=== PATIENT | female | born 1935 | race Caucasian/White ===

== ENCOUNTER 2023-07-07 09:41 | Outpatient (REF) | payer MEDICARE, MEDICAID, SELFPAY ==
[2023-07-07 12:50] LABS: Basophils Percent Auto 0.2 % (0.2-2.0); Eosinophils Absolute Auto 0.2 10^3/uL (0.0-0.7); Eosinophils Percent Auto 3.5 % (0.9-7.0); Hematocrit 37.8 % (36.0-48.0); Hemoglobin 11.5 g/dL (12.0-16.0); Immature Granulocytes Abs Auto 0.01 10^3/uL (0.00-0.03); Immature Granulocytes Pct Auto 0.2 % (0.0-0.5); Lymphocytes Absolute Auto 1.8 10^3/uL (1.2-3.8); Mean Corpuscular HGB Conc 30.4 g/dL (29.9-35.2); Mean Corpuscular Hemoglobin 30.3 pg (26.7-34.0); Mean Corpuscular Volume 99.7 fL (81.0-99.0); Monocytes Absolute Auto 0.7 10^3/uL (0.3-0.8); Monocytes Percent Auto 11.1 % (1.7-12.0); Neutrophils Absolute Auto 3.3 10^3/uL (1.4-6.5); Platelet Count 229 10^3/uL (150-450); Red Blood Count 3.79 10^6/uL (4.20-5.40)
[2023-07-07 13:11] LABS: Albumin Level 3.4 g/dL (3.4-5.0); Anion Gap 13.3; BUN Creatinine Ratio 18.1; Calcium 9.2 mg/dL (8.5-10.1); Carbon Dioxide 31.2 mmol/L (21.0-32.0); Chloride 103 mmol/L (98-107); Estimated GFR (African America 22 (>=60); Estimated GFR (Non-African Ame 18 (>=60); Glucose 110 mg/dL (74-106); Magnesium 2.3 mg/dL (1.8-2.4); Phosphorus 3.5 mg/dL (2.6-4.7); Potassium 3.5 mmol/L (3.5-5.1); Sodium 144 mmol/L (136-145); Uric Acid 7.1 mg/dL (2.6-6.0)
[2023-07-08 13:07] LABS: PTH, Intact 62 pg/mL (15-65)
== END 2023-07-07 09:42 | disposition home or self-care (01) ==
LOC: LAB 09:41
DX: I12.9 Hypertensive chronic kidney disease with stage 1 through stage 4 chronic kidney disease, or unspecified chronic kidney disease (principal); N18.4 Chronic kidney disease, stage 4 (severe); N25.0 Renal osteodystrophy; E87.8 Other disorders of electrolyte and fluid balance, not elsewhere classified; E87.70 Fluid overload, unspecified
CPT/HCPCS: 36415; 80069; 82570; 83735; 83970; 84156; 84550; 85025

== ENCOUNTER 2023-07-15 07:48 | Outpatient (REF) | payer MEDICARE, MEDICAID, SELFPAY ==
[2023-07-16 08:05] LABS: Bilirubin Urine NEGATIVE (NEGATIVE); Blood Urine TRACE-I (NEGATIVE); Clarity Urine CLEAR (CLEAR); Color Urine LT. YELLOW (YELLOW); Glucose Urine UA NEGATIVE (NEGATIVE); Ketones Urine NEGATIVE (NEGATIVE); Leukocyte Esterase Urine LARGE (NEGATIVE); Nitrite Urine NEGATIVE (NEGATIVE); Protein Urine NEGATIVE (NEG/TRACE); Urine Microscopic Indicated YES; Urobilinogen Urine 0.2 EU/dL (0.2-1.0)
[2023-07-16 08:13] LABS: RBC Urine 0-2 #/HPF (0-2)
[2023-07-16 08:14] LABS: Bacteria Urine TRACE #/HPF (NONE SEEN); Cast Seen? NONE SEEN #/LPF (NONE SEEN); Creatinine Urine Random 17.81 mg/dL (20.00-300.00); Crystals Seen? None Seen #/HPF (None Seen); Mucus Urine NONE SEEN (NONE SEEN); Protein Creatinine Ratio Urine 0.92; Squamous Epithelial Cell Urine RARE #/LPF (NONE/RARE); Total Protein Urine Random 16.4 mg/dL (<=11.9); Urine Culture Indicated YES
== END 2023-07-15 07:49 | disposition home or self-care (01) ==
LOC: LAB 07:48
DX: N18.4 Chronic kidney disease, stage 4 (severe) (principal); R82.89 Other abnormal findings on cytological and histological examination of urine
CPT/HCPCS: 81001; 82570; 84156; 87086

== ENCOUNTER 2023-08-12 15:02 | Outpatient (REF) | payer MEDICARE, MEDICAID, SELFPAY ==
[2023-08-11 08:50] LABS: Basophils Percent Auto 0.3 % (0.2-2.0); Eosinophils Absolute Auto 0.2 10^3/uL (0.0-0.7); Eosinophils Percent Auto 2.3 % (0.9-7.0); Hematocrit 39.8 % (36.0-48.0); Hemoglobin 12.6 g/dL (12.0-16.0); Immature Granulocytes Abs Auto 0.01 10^3/uL (0.00-0.03); Immature Granulocytes Pct Auto 0.1 % (0.0-0.5); Lymphocytes Absolute Auto 2.4 10^3/uL (1.2-3.8); Lymphocytes Percent Auto 30.6 % (20.5-60.0); Mean Corpuscular HGB Conc 31.7 g/dL (29.9-35.2); Mean Corpuscular Hemoglobin 31.3 pg (26.7-34.0); Mean Corpuscular Volume 98.8 fL (81.0-99.0); Mean Platelet Volume 10.2 fL (9.5-13.5); Monocytes Absolute Auto 0.8 10^3/uL (0.3-0.8); Monocytes Percent Auto 9.7 % (1.7-12.0); Neutrophils Absolute Auto 4.4 10^3/uL (1.4-6.5); Platelet Count 212 10^3/uL (150-450); Red Blood Count 4.03 10^6/uL (4.20-5.40); Red Cell Distribution Width 13.2 % (11.0-15.0); White Blood Count 7.7 10^3/uL (4.0-11.0)
[2023-08-11 09:26] LABS: Albumin Level 3.6 g/dL (3.4-5.0); Anion Gap 12.7; BUN Creatinine Ratio 17.5; Calcium 8.8 mg/dL (8.5-10.1); Carbon Dioxide 31.8 mmol/L (21.0-32.0); Chloride 102 mmol/L (98-107); Estimated GFR (African America 24 (>=60); Estimated GFR (Non-African Ame 20 (>=60); Glucose 121 mg/dL (74-106); Phosphorus 4.5 mg/dL (2.6-4.7); Potassium 3.5 mmol/L (3.5-5.1); Sodium 143 mmol/L (136-145); Uric Acid 7.7 mg/dL (2.6-6.0)
[2023-08-11 09:52] LABS: Magnesium 2.3 mg/dL (1.8-2.4)
[2023-08-12 12:13] LABS: PTH, Intact 51 pg/mL (15-65)
[2023-08-13 11:21] LABS: Bilirubin Urine NEGATIVE (NEGATIVE); Blood Urine TRACE-I (NEGATIVE); Clarity Urine CLEAR (CLEAR); Color Urine LT. YELLOW (YELLOW); Glucose Urine UA NEGATIVE (NEGATIVE); Ketones Urine NEGATIVE (NEGATIVE); Leukocyte Esterase Urine LARGE (NEGATIVE); Nitrite Urine NEGATIVE (NEGATIVE); Protein Urine NEGATIVE (NEG/TRACE); Urobilinogen Urine 0.2 EU/dL (0.2-1.0); pH Urine 6.5 (5.0-9.0)
[2023-08-13 11:22] LABS: Urine Microscopic Indicated YES
[2023-08-13 11:41] LABS: Creatinine Urine Random 44.04 mg/dL (20.00-300.00); Protein Creatinine Ratio Urine 0.56; Total Protein Urine Random 24.8 mg/dL (<=11.9)
[2023-08-13 12:07] LABS: Bacteria Urine TRACE #/HPF (NONE SEEN); Mucus Urine NONE SEEN (NONE SEEN)
[2023-08-13 12:08] LABS: Calcium Oxalate Crystals Urine FEW; Cast Seen? NONE SEEN #/LPF (NONE SEEN); Crystals Seen? Seen #/HPF (None Seen); Squamous Epithelial Cell Urine RARE #/LPF (NONE/RARE); Urine Culture Indicated YES
== END 2023-08-12 15:03 | disposition home or self-care (01) ==
LOC: LAB 15:02
DX: I12.9 Hypertensive chronic kidney disease with stage 1 through stage 4 chronic kidney disease, or unspecified chronic kidney disease (principal); N18.4 Chronic kidney disease, stage 4 (severe); E87.8 Other disorders of electrolyte and fluid balance, not elsewhere classified; E87.70 Fluid overload, unspecified; N25.0 Renal osteodystrophy; R82.998 Other abnormal findings in urine
CPT/HCPCS: 36415; 80069; 81001; 82570; 83735; 83970; 84156; 84550; 85025; 87086

== ENCOUNTER 2023-08-23 18:10 | Outpatient (REF) | payer MEDICARE, MEDICAID, SELFPAY ==
[2023-08-23 18:26] LABS: Bilirubin Urine NEGATIVE (NEGATIVE); Blood Urine TRACE-I (NEGATIVE); Clarity Urine CLEAR (CLEAR); Color Urine YELLOW (YELLOW); Glucose Urine UA NEGATIVE (NEGATIVE); Ketones Urine NEGATIVE (NEGATIVE); Leukocyte Esterase Urine LARGE (NEGATIVE); Nitrite Urine NEGATIVE (NEGATIVE); Protein Urine NEGATIVE (NEG/TRACE); Urine Microscopic Indicated YES; Urobilinogen Urine 0.2 EU/dL (0.2-1.0)
[2023-08-23 18:35] LABS: Bacteria Urine LARGE #/HPF (NONE SEEN); Cast Seen? NONE SEEN #/LPF (NONE SEEN); Crystals Seen? None Seen #/HPF (None Seen); Mucus Urine NONE SEEN (NONE SEEN); RBC Urine 0-2 #/HPF (0-2); Squamous Epithelial Cell Urine MODERATE #/LPF (NONE/RARE); Transitional Epi Cells Urine FEW #/LPF (NONE SEEN); Urine Culture Indicated YES
== END 2023-08-23 18:11 | disposition home or self-care (01) ==
LOC: LAB 18:10
PROVIDERS: Visit Provider Family Medicine
DX: R41.82 Altered mental status, unspecified (principal)
CPT/HCPCS: 81001; 87086

== ENCOUNTER 2023-08-24 20:30 | Inpatient (IN) | payer MEDICARE, MEDICAID, SELFPAY ==
[2023-08-24] VITALS (9 sets, daily range): BP systolic 156–188; BP diastolic 64–88; PULSE 72–85; RESP 15–17; TEMP 36.8; O2SAT 97–98
--- NOTE | 2023-08-24 20:40 | XR_ITS ---
The [address] [address] Patient Name: JESÚS GONSALES MRN: [id number] date: 1935 Sex: F Assigned Patient Location: ER Current Patient Location: ER Accession/Order Number: [id number] Exam Date: 08/24/2023 21:20 Report Date: 08/24/2023 23:34 At the request of: NADINE DELGADO Procedure: XR chest 1V EXAM: XR chest 1V HISTORY: Altered mental status COMPARISON: None. TECHNIQUE: One view of the chest was obtained. FINDINGS: The cardiac silhouette is normal in size. A calcified granuloma is seen in the left lower lung. There is no significant pneumothorax or pleural effusion. No acute osseous abnormality is seen. XR/XR chest 1V IMPRESSION: 1. No acute cardiopulmonary abnormality. Electronically authenticated by: Barnt BURGESS Date: 08/24/2023 23:34
--- NOTE | 2023-08-24 20:40 | ECG_ITS ---
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
--- NOTE | 2023-08-24 20:41 | CT_ITS ---
The [address] [address] Patient Name: JESÚS GOSNALES MRN: [id number] date: 1935 Sex: F Assigned Patient Location: ER Current Patient Location: ER Accession/Order Number: [id number] Exam Date: 08/24/2023 21:20 Report Date: 08/24/2023 23:26 At the request of: NADINE DELGADO Procedure: CT head/brain wo con EXAM: CT head/brain wo con HISTORY: Altered mental status COMPARISON: None. TECHNIQUE: Axial CT scans through the head were obtained without IV contrast administration. Dose reduction techniques were achieved by using: automated exposure control and/or adjustment of mA and /or kV according to patient size and/or use of iterative reconstruction technique. FINDINGS: There is no evidence of acute intracranial hemorrhage or abnormal extra-axial fluid collection. No mass effect or midline shift is seen. There is no evidence of large acute territorial infarction. There is no hydrocephalus. There are a few small foci of encephalomalacia in right basal ganglia and bilateral anterior internal capsule, suggestive of remote lacunar infarcts. Mild enlarged ventricles and sulci, consistent with age appropriate cerebral atrophy. Mild low-attenuation patchy areas are present in supratentorial white matter, likely represents chronic microvascular ischemia. There are atherosclerotic calcifications of anterior and posterior circulations. To the limit of CT, the posterior fossa appears unremarkable. No definite acute fracture is identified. Soft tissues are unremarkable. The visualized orbits are unremarkable The visualized paranasal sinuses show no air-fluid level. Mastoid air cells are clear. CT/CT head/brain wo con IMPRESSION: No CT evidence of acute intracranial abnormality. Further evaluation with MRI imaging would be recommended if there is concern for acute infarction. Nonacute findings as discussed. Electronically authenticated by: KAYDEN UNLU Date: 08/24/2023 23:26
--- NOTE | 2023-08-24 21:00 | ED_ITS ---
HPI - General Adult General Chief complaint: Urogenital-Female Stated complaint: UTI Time Seen by Provider: 08/24/23 20:40 Source: patient and family Mode of arrival: Wheelchair Limitations: no limitations History of Present Illness HPI narrative: Patient is an 88-year-old female who presents to the emergency department accompanied by her daughter for increasing confusion that began yesterday. Daughter states 2 days ago the patient was complaining of a headache and yesterday she became confused. Her urine was checked at the assisted living facility where she is a resident and she was found to have a UTI, started on Bactrim today and has received 2 doses. She has become much more confused and did not recognize her daughter which is very abnormal behavior for her which prompted them to bring her to the emergency department. She has not had any fevers, falls, vomiting or diarrhea. Patient complains of some abdominal discomfort although she is resting comfortably with stable vital signs at time of initial interview. She is alert and oriented to person, time, disoriented to place. She is a DNR [facility] arrest. Related Data Home Medications Medication Instructions Recorded Confirmed ascorbic acid (vitamin C) 500 mg 08/24/23 tablet (Vitamin C) buspirone 10 mg tablet mg 08/24/23 calcitriol 0.25 mcg capsule mcg 08/24/23 calcium acetate 667 mg tablet mg PO 08/24/23 docusate sodium 100 mg capsule mg PO 08/24/23 ferrous sulfate 325 mg (65 mg mg 08/24/23 iron) tablet furosemide 20 mg tablet mg 08/24/23 hydralazine 25 mg tablet mg 08/24/23 hydrocodone 10 mg-acetaminophen tab 08/24/23 325 mg tablet lorazepam 0.5 mg tablet mg 08/24/23 melatonin 10 mg disintegrating mg PO 08/24/23 tablet multivitamin with folic acid 400 tab PO 08/24/23 mcg tablet (High Potency Multivitamin) potassium chloride 20 mEq meq PO 08/24/23 tablet,extended release(part/cryst) pravastatin 10 mg tablet mg 08/24/23 sulfamethoxazole 800 tab 08/24/23 mg-trimethoprim 160 mg tablet verapamil 180 mg tablet,extended mg PO 08/24/23 release Allergies Allergy/AdvReac Type Severity Reaction Status Date / Time No Known Drug Allergies Allergy Verified 08/24/23 20:42 Review of Systems ROS Constitutional Denies: fever or chills Ears, nose, mouth, and throat Denies: throat pain Cardiovascular Denies: chest pain Respiratory Denies: shortness of breath or cough Gastrointestinal Reports: abdominal pain; Denies: nausea, vomiting or diarrhea Genitourinary Denies: painful urination Musculoskeletal Denies: back pain Integumentary/Breast Denies: rash Neurological Reports: headache Endocrine Denies: excessive urination PFSH PFS Medical History (Updated 08/25/23 @ 01:23 by Rosario Andersen) Chronic kidney disease ?N18.9 - Chronic kidney disease, unspecified (ICD-10) Dementia ?F03.90 - Unspecified dementia, unspecified severity, without behavioral disturbance, psychotic disturbance, mood disturbance, and anxiety (ICD-10) HTN (hypertension) ?I10 - Essential (primary) hypertension (ICD-10) Hypokalemia ?E87.6 - Hypokalemia (ICD-10) Skin cancer ?C44.90 - Unspecified malignant neoplasm of skin, unspecified (ICD-10) Surgical History (Updated 08/25/23 @ 00:26 by Rosario Andersen) History of hip surgery ?Z98.890 - Other specified postprocedural states (ICD-10) Family History (Updated 08/25/23 @ 00:27 by Rosario Andersen) Grandmother Family history of stroke Grandfather Family history of stroke Social History (Updated 08/25/23 @ 00:28 by Rosario Andersen) Within the past year, how often did you have a drink containing alcohol: never Score interpretation: A score less than 3 is consistent with normal alcohol consumption. Smoking status: Never smoker Second hand tobacco smoke exposure: No Non-prescribed substance use: denies use Previous occupational history: retired Known occupational exposures/hazards: No Highest level of school completed/degree received: high school graduate Do you want help with school or training: No Are you now , , , , never or living with a partner: In a typical week, how many times do you talk on the telephone with family, friends, or neighbors: 3 or more times per week How often do you get together with friends or relatives: 3 or more times per week How often do you attend rastafarian or christian services: never Do you belong to any clubs or organizations such as rastafarian groups unions, fraternal or athletic groups, or school groups: no Total score: 1 Score interpretation: A score of less than or equal to 1 indicates the most socially isolated. Little interest or pleasure in doing things: not at all Feeling down, depressed, or hopeless: not at all Feel stressed/tense/nervous/anxious/difficulty sleeping: very much Life stressor details: medical issues Due to disability, difficulty making decisions: No Do you think of yourself as: straight/heterosexual Gender Identity: female Exam Narrative Exam Narrative: Gen.: Awake, alert, in no distress Head: Normocephalic, atraumatic ENT: Moist mucous membranes Respiratory: No respiratory distress, lungs clear bilaterally Cardio: Regular rate and rhythm Gastrointestinal: Abdomen is soft, nondistended and nontender to palpation Extremities: Moves extremities equally, no injuries noted Psych: Normal mood and affect Neuro: Alert and oriented to person, time; disoriented to place Skin: Warm, dry, intact Constitutional Vital Signs, click to edit/add: Last Vital Signs Temp 98.9 F 08/25/23 04:18 Pulse 67 08/25/23 04:18 Resp 18 08/25/23 04:18 BP 124/56 08/25/23 04:18 Pulse Ox 93 L 08/25/23 04:18 O2 Del Method Room Air 08/25/23 04:18 Course Vital Signs Vital signs: Vital Signs Temperature 98.2 F 08/24/23 20:37 Pulse Rate 85 08/24/23 20:37 Respiratory Rate 16 08/24/23 20:37 Blood Pressure 160/80 H 08/24/23 20:37 Pulse Oximetry 98 08/24/23 20:37 Oxygen Delivery Method Room Air 08/24/23 20:37 Temperature 98.9 F 08/25/23 04:18 Pulse Rate 67 08/25/23 04:18 Respiratory Rate 18 08/25/23 04:18 Blood Pressure 124/56 08/25/23 04:18 Pulse Oximetry 93 L 08/25/23 04:18 Oxygen Delivery Method Room Air 08/25/23 04:18 Medical Decision Making MDM Narrative Medical decision making narrative: 2158: On arrival to the emergency department, patient was placed in a room, IV was established for lab draw. She did provide a urine specimen which is found to have a urinary tract infection. Patient's 2 previous urine cultures in the last month at this facility did not show any evidence of growth. Patient was given gentle IV fluids and Rocephin was ordered for her. She was sent for CT of the brain, chest x-ray. Imaging studies are pending at this time, remainder of the labs are pending as well. As the patient lives in assisted living and is having an acute mental status change with UTI, she will likely require admission. Discussed with Dr. Phillips for admission, CT of the brain and Chest xray are officially read, patient will be admitted for observation. Medical Records Medical records reviewed: Yes I reviewed the patient's medical records Lab Data Lab results reviewed: Yes I reviewed the patient's lab results Labs: Lab Results 08/24/23 Range/Units 21:00 WBC 10.4 (4.0-11.0) 10^3/uL RBC 4.51 (4.20-5.40) 10^6/uL Hgb 14.1 (12.0-16.0) g/dL Hct 44.2 (36.0-48.0) % MCV 98.0 (81.0-99.0) fL MCH 31.3 (26.7-34.0) pg MCHC 31.9 (29.9-35.2) g/dL RDW 13.2 (11.0-15.0) % Plt Count 233 (150-450) 10^3/uL MPV 10.1 (9.5-13.5) fL Neut % (Auto) 60.9 (43.0-75.0) % Lymph % (Auto) 28.8 (20.5-60.0) % Granite % (Auto) 9.0 (1.7-12.0) % Eos % (Auto) 0.9 (0.9-7.0) % Baso % (Auto) 0.2 (0.2-2.0) % Neut # (Auto) 6.4 (1.4-6.5) 10^3/uL Lymph # (Auto) 3.0 (1.2-3.8) 10^3/uL Granite # (Auto) 0.9 H (0.3-0.8) 10^3/uL Eos # (Auto) 0.1 (0.0-0.7) 10^3/uL Baso # (Auto) 0.0 (0.0-0.1) 10^3/uL Abs Immat Gran (auto) 0.02 (0.00-0.03) 10^3/uL Imm/Tot Granulo (auto) 0.2 (0.0-0.5) % PT 10.6 (9.0-11.6) sec INR 1.00 Sodium 142 (136-145) mmol/L Potassium 4.3 (3.5-5.1) mmol/L Chloride 101 (98-107) mmol/L Carbon Dioxide 32.2 H (21.0-32.0) mmol/L Anion Gap 13.1 BUN 38.0 H (7.0-18.0) mg/dL Creatinine 2.52 H (0.55-1.02) mg/dL Est GFR ( Amer) 22 L (>=60) Est GFR (Non-Af Amer) 18 L (>=60) BUN/Creatinine Ratio 15.1 Glucose 180 H (74-106) mg/dL Lactate 2.0 (0.4-2.0) mmol/L Calcium 9.7 (8.5-10.1) mg/dL Total Bilirubin 0.3 (0.2-1.0) mg/dL AST 28 (15-37) U/L ALT 28 (14-59) U/L Alkaline Phosphatase 119 H (46-116) U/L Troponin I High Sens 13.6 (4.0-51.3) pg/mL Total Protein 8.4 H (6.4-8.2) g/dL Albumin 4.0 (3.4-5.0) g/dL Globulin 4.4 g/dL Albumin/Globulin Ratio 0.9 TSH 1.570 (0.358-3.740) uIU/mL Urine Color Yellow (YELLOW) Urine Clarity Clear (CLEAR) Urine pH 6.5 (5.0-9.0) Ur Specific [place] 1.020 (1.005-1.025) Urine Protein 100 A (NEG/TRACE) mg/dL Urine Glucose (UA) Negative (NEGATIVE) mg/dL Urine Ketones Negative (NEGATIVE) mg/dL Urine Occult Blood Small A (NEGATIVE) Urine Nitrite Negative (NEGATIVE) Urine Bilirubin Negative (NEGATIVE) Urine Urobilinogen 0.2 (0.2-1.0) EU/dL Ur Leukocyte Esterase Large A (NEGATIVE) Urine RBC 0-2 (0-2) #/HPF Urine WBC 10-20 A (NONE SEEN) #/HPF Ur Squamous Epith Cells Few A (NONE/RARE) #/LPF Ur Renal Epithelial Cell Rare A (NONE SEEN) #/LPF Urine Crystals None seen (None Seen) #/HPF Urine Bacteria Trace A (NONE SEEN) #/HPF Urine Casts None seen (NONE SEEN) #/LPF Urine Mucus Trace A (NONE SEEN) Ur Culture Indicated? Yes ECG Data Attestation: I personally reviewed and interpreted this ECG as follows: (Normal sinus rhythm at a rate of 72, no acute ST elevation or ectopy. EKG reviewed by attending physician) Discharge Plan Discharge Chief Complaint: Urogenital-Female Clinical Impression: Urinary tract infection, Acute confusion Patient Disposition: Admitted as Observation Time of Disposition Decision: 21:59 Condition: Good Discharge Date/Time: 08/25/23 00:09
[2023-08-24 21:09] LABS: Basophils Percent Auto 0.2 % (0.2-2.0); Eosinophils Absolute Auto 0.1 10^3/uL (0.0-0.7); Eosinophils Percent Auto 0.9 % (0.9-7.0); Hematocrit 44.2 % (36.0-48.0); Hemoglobin 14.1 g/dL (12.0-16.0); Immature Granulocytes Abs Auto 0.02 10^3/uL (0.00-0.03); Immature Granulocytes Pct Auto 0.2 % (0.0-0.5); Lymphocytes Percent Auto 28.8 % (20.5-60.0); Mean Corpuscular HGB Conc 31.9 g/dL (29.9-35.2); Mean Corpuscular Hemoglobin 31.3 pg (26.7-34.0); Mean Platelet Volume 10.1 fL (9.5-13.5); Monocytes Absolute Auto 0.9 10^3/uL (0.3-0.8); Neutrophils Absolute Auto 6.4 10^3/uL (1.4-6.5); Neutrophils Percent Auto 60.9 % (43.0-75.0); Platelet Count 233 10^3/uL (150-450); Red Blood Count 4.51 10^6/uL (4.20-5.40); Red Cell Distribution Width 13.2 % (11.0-15.0); White Blood Count 10.4 10^3/uL (4.0-11.0)
[2023-08-24 21:17] LABS: Bilirubin Urine NEGATIVE (NEGATIVE); Blood Urine SMALL (NEGATIVE); Clarity Urine CLEAR (CLEAR); Color Urine YELLOW (YELLOW); Glucose Urine UA NEGATIVE (NEGATIVE); Ketones Urine NEGATIVE (NEGATIVE); Leukocyte Esterase Urine LARGE (NEGATIVE); Nitrite Urine NEGATIVE (NEGATIVE); Protein Urine 100 mg/dL (NEG/TRACE); Urine Microscopic Indicated YES; Urobilinogen Urine 0.2 EU/dL (0.2-1.0); pH Urine 6.5 (5.0-9.0)
[2023-08-24 21:19] LABS: Bacteria Urine TRACE #/HPF (NONE SEEN); Cast Seen? NONE SEEN #/LPF (NONE SEEN); Crystals Seen? None Seen #/HPF (None Seen); Mucus Urine TRACE (NONE SEEN); RBC Urine 0-2 #/HPF (0-2); Renal Epithelial Cells Urine RARE #/LPF (NONE SEEN); Squamous Epithelial Cell Urine FEW #/LPF (NONE/RARE); Urine Culture Indicated YES
[2023-08-24] MEDS: 0.9 % SODIUM CHLORIDE 1,000 ML 999 ML IV (21:31)
[2023-08-24 21:34] LABS: Alanine Aminotransferase 28 U/L (14-59); Albumin Globulin Ratio 0.9; Alkaline Phosphatase 119 U/L (46-116); Anion Gap 13.1; Aspartate Amino Transferase 28 U/L (15-37); BUN Creatinine Ratio 15.1; Bilirubin Total 0.3 mg/dL (0.2-1.0); Calcium 9.7 mg/dL (8.5-10.1); Carbon Dioxide 32.2 mmol/L (21.0-32.0); Chloride 101 mmol/L (98-107); Estimated GFR (African America 22 (>=60); Estimated GFR (Non-African Ame 18 (>=60); Globulin 4.4 g/dL; Glucose 180 mg/dL (74-106); Potassium 4.3 mmol/L (3.5-5.1); Sodium 142 mmol/L (136-145); Total Protein 8.4 g/dL (6.4-8.2); Troponin I High Sensitivity 13.6 pg/mL (4.0-51.3)
[2023-08-24 21:48] LABS: Prothrombin Time 10.6 sec (9.0-11.6)
[2023-08-24] MEDS: CEFTRIAXONE 1,000 MG in 0.9 % SODIUM CHLORIDE 50 ML 100 MG IV (22:07)
[2023-08-24] MEDS: LABETALOL HCL 20 MG/4 ML SYRINGE 10 MG IVP (22:29)
[2023-08-24] MEDS: ENALAPRILAT DIHYDRATE 1.25 MG/ML VIAL IV (22:29)
[2023-08-25] VITALS (8 sets, daily range): BP systolic 124–185; BP diastolic 56–75; PULSE 61–78; RESP 15–20; TEMP 36.7–37.2; O2SAT 93–99; BMI 25.2
--- NOTE | 2023-08-25 01:53 | W.PM.TELEPN ---
Progress Note: Subjective Subjective Interval history: The patient is an 88-year-old female, who resides at an assisted living facility. She was having some confusion over the past several days and was diagnosed with a urinary tract infection. She was started on Bactrim and received 2 doses of this. Over the last 24 hours, the patient continued to be more confused. She usually recognizes her daughter but did not recognize her daughter today. She is also had some increased weakness and headache. She was brought to the emergency room and she was found to have acute kidney injury as well as urinary tract infection. She was given IV fluids and Rocephin and is being admitted for further evaluation. Exam Constitutional Vital Signs, click to edit/add: Last Vital Signs Temp 98.6 F 08/25/23 00:29 Pulse 69 08/25/23 00:29 Resp 18 08/25/23 00:29 BP 143/61 H 08/25/23 00:29 Pulse Ox 99 08/25/23 00:29 O2 Del Method Room Air 08/25/23 00:29 Progress Note: Objective Labs Labs: Short CBC 08/24/23 Range/Units 21:00 WBC 10.4 (4.0-11.0) 10^3/uL Hgb 14.1 (12.0-16.0) g/dL Hct 44.2 (36.0-48.0) % Plt Count 233 (150-450) 10^3/uL BMP 08/24/23 21:00 Sodium 142 Potassium 4.3 Chloride 101 Carbon Dioxide 32.2 H BUN 38.0 H Creatinine 2.52 H Glucose 180 H Calcium 9.7 Liver Function 08/24/23 Range/Units 21:00 Total Bilirubin 0.3 (0.2-1.0) mg/dL AST 28 (15-37) U/L ALT 28 (14-59) U/L Alkaline Phosphatase 119 H (46-116) U/L Albumin 4.0 (3.4-5.0) g/dL Urine 08/24/23 Range/Units 21:00 Urine Color Yellow (YELLOW) Urine Clarity Clear (CLEAR) Urine pH 6.5 (5.0-9.0) Ur Specific [place] 1.020 (1.005-1.025) Urine Protein 100 A (NEG/TRACE) mg/dL Urine Glucose (UA) Negative (NEGATIVE) mg/dL Progress Note: A&P Assessment and Plan (1) Urinary tract infection: (2) Acute confusion: Plan The patient is an 88-year-old female with above medical problems, presenting with acute metabolic encephalopathy and urinary tract infection. Acute metabolic encephalopathy -Likely combination of urinary tract infection and metabolic derangements including acute kidney injury -Provide supportive care -Head CT negative -Monitor for improvement of symptoms Urinary tract infection, present on admission -Continue Rocephin Acute kidney injury -Provide supportive care -IV fluids -Most recent worsening of renal insufficiency could be related to Bactrim use -Monitor renal function while she is being hydrated DVT Prophylaxis -SCDs Medication review -Medication reconciliation form not yet completed, waiting on medications to be verified Goals of care -DNR [employer] -Discussed with the emergency room physician -Discussed with the bedside nurse -Patient and daughter updated of plan of care, all questions answered to their satisfaction Disposition -Assisted living when medically stable Telemedicine clause -As the provider of this telehealth evaluation, requested by the patient's evaluating physician, I attest that I introduced myself to the patient, provided my credentials and determined that telemedicine via a real-time, two-way interactive audio and video platform is an appropriate and effective means of providing this service. -I reviewed the patient's chart and had a discussion with the member of the patient's treatment team. -The patient and I mutually agreed with continuation of this evaluation via telemedicine. The patient consented for the telemedicine evaluation. -This virtual encounter was taken place from [place], [place]. The encounter was approximately 35 minutes. The nurse was present during the entire time of the encounter and was able to remove the stethoscope and appropriate directions. The patient was evaluated at [facility] Tele[facility] Attestation Telemedicine Attestation I conducted this encounter from [] via secure live, [id number] video conference with the patient, located at [facility] with []. Prior to the interview, the risks and benefits of telemedicine were discussed with the patient and verbal consent was obtained.
[2023-08-25] MEDS: SODIUM CHLORIDE 0.45 % 1,000 ML 75 ML IV ×2 (02:04→16:46)
--- NOTE | 2023-08-25 04:15 | CT_ITS ---
The [address] [address] Patient Name: JESÚS GONSALES MRN: [id number] date: 1935 Sex: F Assigned Patient Location: Current Patient Location: Accession/Order Number: [id number] Exam Date: 08/25/2023 08:57 Report Date: 08/25/2023 09:20 At the request of: EMERSON MAGANA Procedure: CT abdomen pelvis wo con EXAM: CT abdomen pelvis wo con HISTORY: Acute kidney infection. COMPARISON: None. TECHNIQUE: A noncontrast scan was performed. Sagittal and coronal reformatted images were produced. Dose reduction techniques were achieved by using automated exposure control and/or adjustment of mA and/or kV according to patient size and/or use of iterative reconstruction technique. FINDINGS: Evaluation of lung bases is very limited due to breathing motion artifact. There is bibasilar atelectasis. The visualized heart is normal in size. Calcified plaque is seen in the thoracic aorta. The liver, spleen, adrenal glands, and pancreas show grossly normal unenhanced characteristics. There are surgical changes of cholecystectomy. The right kidney is normal in size and appearance. The left kidney shows an extremely large staghorn calculus, filling most of the intrarenal collecting system and extending into the renal pelvis to the UPJ. Because of a stone, it is difficult to evaluate for hydronephrosis. No distal ureteral stones are seen, although the distal ureter could not be visualized due to metallic beam hardening artifact from the left hip prosthesis. Calcified plaque is seen throughout the aorta and branch vessels. The large and small bowel are normal caliber. There is a large amount of stool throughout the colon. Pelvic organs are not visualized. Urinary bladder is grossly normal. There is no free air or free fluid and no inflammatory stranding is seen. No suspicious or destructive bone lesions are seen. CT/CT abdomen pelvis wo con IMPRESSION: There is an extremely large staghorn calculus on the left as described. There is no definite hydronephrosis. Note that this exam does not exclude an active pyelonephritis. Constipation. Atherosclerotic disease. Electronically authenticated by: KIAN CRANDALL Date: 08/25/2023 09:20
--- NOTE | 2023-08-25 10:50 | CM.NOTE ---
Pt very confused at this time, pt is unsure where she is at and where she lives. Pt only oriented to name at this time. Case Management will see pt tomorrow and reach out to emergency contact for further information.
--- NOTE | 2023-08-25 13:14 | PC.NURSE ---
patient offered lunch. patient refused at this time.
--- NOTE | 2023-08-25 15:05 | CM.NOTE ---
Discussed with pt about discharge planning, pt confused to place and time. Pt does say she lives at a home where they help her. Pt verbalizes you can just call my daughter. Reached out to pt's daughter, pt living at [facility] and plans on returning back to [place]. PT and OT ordered, Case Management will follow for recommendations. Daughter states if pt would need any PT and OT [facility] would use their therapy department to assess pt. Case Management will reach out to [facility] if PT would suggest any needs for pt at discharge.
--- NOTE | 2023-08-25 15:15 | P.HP_ITS ---
Patient seen and examined, agree with assessment and plan below. Presented with weakness and increased confusion. Found UTI and failed outpatient treatment. Improved with antibiotics. CT with hydronephrosis and stone. Urology consulted. Diagnosis: 1. UTI 2. Obstructive uropathy 3. Metabolic encephalopathy 4. HTN 5. CKD IV 6. Dementia H&P: HPI History of Present Illness Chief complaint: UTI CONFUSION Narrative: Date/time of exam: 08/25/23 1210 This is an 88-year-old female patient who resides at an assisted living facility with a past medical history recurrent UTIs, HTN, CKD stage IV, and dementia; who was brought to the ED by her daughter last night with concerns for persistent UTI and altered mentation. The patient began to exhibit symptoms of confusion and hallucinations a couple of days ago which is her usual presentation with UTIs. She was prescribed Bactrim by her PCP and took 2 doses. Unfortunately her mentation continued to worsen and she was brought to the ED for further evaluation. Work-up in the ED revealed a UTI and mild PRESTON on baseline CKD 3/4. Chest x-ray and CT of the head were unremarkable. She was admitted last night to the hospitalist service. She has been complaining of intermittent left lower quadrant abdominal pain and a CT of the abdomen and pelvis was ordered on admission last night. At the time of my exam the patient is resting in bed visiting with her daughter. She is awake and alert and cooperative, but very confused and continues to have hallucinations. Otherwise her vital signs are stable and the patient and daughter have no other acute concerns. She denies chest pain, shortness of breath, nausea and vomiting, or any other acute complaint. CT imaging of the abdomen that resulted this morning and reveals a large staghorn calculus in the left ureter. Imaging is unable to definitively assess for hydronephrosis due to artifact from the left hip replacement but is suspected. We have consulted the urology service and placed a Hernandez catheter for bladder decompression at this time. Review of Systems ROS Status of ROS 10 or more systems reviewed and unremarkable except as noted in history and below [facility] Medical History (Updated 08/25/23 @ 15:25 by Rosa M Burciaga NP) Chronic kidney disease ?N18.9 - Chronic kidney disease, unspecified (ICD-10) CKD (chronic kidney disease) stage 4, GFR 15-29 ml/min ?N18.4 - Chronic kidney disease, stage 4 (severe) (ICD-10) Dementia ?F03.90 - Unspecified dementia, unspecified severity, without behavioral disturbance, psychotic disturbance, mood disturbance, and anxiety (ICD-10) HTN (hypertension) ?I10 - Essential (primary) hypertension (ICD-10) Skin cancer ?C44.90 - Unspecified malignant neoplasm of skin, unspecified (ICD-10) Surgical History (Updated 08/25/23 @ 00:26 by Rosario Andersen) History of hip surgery ?Z98.890 - Other specified postprocedural states (ICD-10) Family History (Updated 08/25/23 @ 00:27 by Rosario Andersen) Grandmother Family history of stroke Grandfather Family history of stroke Social History (Updated 08/25/23 @ 00:28 by Rosario Andersen) Within the past year, how often did you have a drink containing alcohol: never Score interpretation: A score less than 3 is consistent with normal alcohol consumption. Smoking status: Never smoker Second hand tobacco smoke exposure: No Non-prescribed substance use: denies use Previous occupational history: retired Known occupational exposures/hazards: No Highest level of school completed/degree received: high school graduate Do you want help with school or training: No Are you now , , , , never or living with a partner: In a typical week, how many times do you talk on the telephone with family, f riends, or neighbors: 3 or more times per week How often do you get together with friends or relatives: 3 or more times per week How often do you attend faith or restorationist services: never Do you belong to any clubs or organizations such as faith groups unions, fraternal or athletic groups, or school groups: no Total score: 1 Score interpretation: A score of less than or equal to 1 indicates the most soc ially isolated. Little interest or pleasure in doing things: not at all Feeling down, depressed, or hopeless: not at all Feel stressed/tense/nervous/anxious/difficulty sleeping: very much Life stressor details: medical issues Due to disability, difficulty making decisions: No Do you think of yourself as: straight/heterosexual Gender Identity: female Meds Home Medications and Allergies Home Medications Medication Instructions Recorded Confirmed Type ascorbic acid (vitamin C) 500 mg 500 mg PO .QD 08/24/23 08/25/23 History tablet (Vitamin C) buspirone 10 mg tablet 10 mg PO BID 08/24/23 08/25/23 History calcitriol 0.25 mcg capsule 0.25 mcg PO .QD 08/24/23 08/25/23 History calcium acetate 667 mg tablet 667 mg PO BID 08/24/23 08/25/23 History docusate sodium 100 mg capsule 100 mg PO BID 08/24/23 08/25/23 History ferrous sulfate 325 mg (65 mg 325 mg PO .QD 08/24/23 08/25/23 History iron) tablet furosemide 20 mg tablet 20 mg PO .QD 08/24/23 08/25/23 History hydralazine 25 mg tablet 25 mg PO BID 08/24/23 08/25/23 History hydrocodone 10 mg-acetaminophen 1 tab PO Q8H PRN pain 08/24/23 08/25/23 History 325 mg tablet lorazepam 0.5 mg tablet 0.5 mg PO Q8H PRN anxiety 08/24/23 08/25/23 History melatonin 10 mg disintegrating 10 mg PO .QHS PRN sleep 08/24/23 08/25/23 History tablet multivitamin with folic acid 400 1 tab PO .QD 08/24/23 08/25/23 History mcg tablet (High Potency Multivitamin) potassium chloride 20 mEq 20 meq PO .QD 08/24/23 08/25/23 History tablet,extended release(part/cryst) pravastatin 10 mg tablet 10 mg PO QPM 08/24/23 08/25/23 History sulfamethoxazole 800 1 tab PO BID 08/24/23 08/25/23 History mg-trimethoprim 160 mg tablet verapamil 180 mg tablet,extended 180 mg PO .QD 08/24/23 08/25/23 History release Allergies Allergy/AdvReac Type Severity Reaction Status Date / Time No Known Drug Allergies Allergy Verified 08/24/23 20:42 Exam Constitutional Vital Signs, click to edit/add: Last Vital Signs Temp 98.0 F 08/25/23 13:31 Pulse 67 08/25/23 13:31 Resp 16 08/25/23 13:31 BP 136/73 08/25/23 13:31 Pulse Ox 95 08/25/23 13:31 O2 Del Method Room Air 08/25/23 13:31 Common normals: no apparent distress, alert and well nourished Exam limitations: altered mental status (Very confused, O to self only, hallucinating intermittently) General appearance: cooperative Orientation/consciousness: Yes awake [facility] Common normals: normocephalic, head/scalp atraumatic, hearing grossly normal bilaterally, external nose normal and moist oral mucous membranes Face and sinus: normal facial exam Eye Common normals: PERRL, EOMs intact bilaterally, conjunctivae normal and no scleral icterus Alignment: alignment normal Eyelid: eyelids normal Conjunctiva: conjunctiva(e) normal Pupil: PERRL Chest Common normals: inspection of chest normal Chest: symmetrical chest wall rise Respiratory Common normals: normal respiratory effort, no retractions, no use of accessory muscles and clear to auscultation bilaterally Effort & inspection: able to speak in complete sentences Cardio Common normals: no JVD, regular rate, regular rhythm, S1 normal heart sound, S2 normal heart sound, no gallops, no clicks, no rub and peripheral pulses 2+ throughout Heart sounds: murmur (HSM 4/6) GI Common normals: Normal to inspection, nondistended, normoactive bowel sounds present, soft to palpation, non-tender, no hepatosplenomegaly, no masses and no bruits Bladder/kidney exam: bladder normal to palpation Back & Pelvis Common normals: thoracic and lumbar spine normal to inspection Extremity Common normals: normal capillary refill and no pedal edema General: normal exam except as noted; no clubbing and no cyanosis Neuro Romero Coma Scale: GCS not evaluated Common normals: CN's II-XII intact bilaterally, moves all extremities, no focal motor deficits and no sensory deficits noted Speech: speech normal Motor exam: strength 5/5 throughout Psych Common normals: affect normal and activity/motor behavior normal Results Labs Labs: Short CBC 08/24/23 Range/Units 21:00 WBC 10.4 (4.0-11.0) 10^3/uL Hgb 14.1 (12.0-16.0) g/dL Hct 44.2 (36.0-48.0) % Plt Count 233 (150-450) 10^3/uL BMP 08/24/23 21:00 Sodium 142 Potassium 4.3 Chloride 101 Carbon Dioxide 32.2 H BUN 38.0 H Creatinine 2.52 H Glucose 180 H Calcium 9.7 Liver Function 08/24/23 Range/Units 21:00 Total Bilirubin 0.3 (0.2-1.0) mg/dL AST 28 (15-37) U/L ALT 28 (14-59) U/L Alkaline Phosphatase 119 H (46-116) U/L Albumin 4.0 (3.4-5.0) g/dL Urine 08/24/23 Range/Units 21:00 Urine Color Yellow (YELLOW) Urine Clarity Clear (CLEAR) Urine pH 6.5 (5.0-9.0) Ur Specific [place] 1.020 (1.005-1.025) Urine Protein 100 A (NEG/TRACE) mg/dL Urine Glucose (UA) Negative (NEGATIVE) mg/dL Pulse Oximetry Attestation: I have reviewed the pertinent pulse oximetry results. Imaging Chest x-ray: Attestation: I have reviewed the pertinent imaging results. Radiologist's impression: IMPRESSION: 1. No acute cardiopulmonary abnormality. CT scan - head: Attestation: I have reviewed the pertinent imaging results. Radiologist's impression: IMPRESSION: No CT evidence of acute intracranial abnormality. Further evaluation with MRI imaging would be recommended if there is concern for acute infarction. Nonacute findings as discussed. CT scan - abdomen: Radiologist's impression: IMPRESSION: There is an extremely large staghorn calculus on the left as described. There is no definite hydronephrosis. Note that this exam does not exclude an active pyelonephritis. Constipation. Atherosclerotic disease. Assessment and Plan Assessment and Plan (1) Urinary tract infection: Assessment and Plan: ACUTE * Adm inpatient w/ comorbid condition of obstructive uropathy * 2/2 obstructive uropathy and suspected hydronephrosis * see below * IVPB Rocephin pending UA Cx results * CBC, CMP daily (2) Obstructive uropathy: Assessment and Plan: ACUTE * Large staghorn renal calculi on L noted on CT imaging * Artifact on CT imaging obscures L kidney - unable to definitively assess for hydronephrosis * US renal ordered - attempt to visualize L kidney * C/s urology - we appreciate Dr Castro assistance with this pt's care * Hernandez catheter placed for bladder decompression w/ suspected hydronephrosis (3) Acute metabolic encephalopathy: Assessment and Plan: ACUTE * With global cerebral dysfunction * Likely 2/2 acute UTI * see above * CT head neg for acute abnormalities (4) HTN (hypertension): Assessment and Plan: CHRONIC * Continue home Hydralazine and verapamil (5) Dementia: Assessment and Plan: CHRONIC * Continue home buspar and PRN ativan (6) Chronic kidney disease: Assessment and Plan: CHRONIC * Slightly worsened renal function from baseline CKD4 * 2/2 acute UTI, possible hydronephrosis/obstructive uropathy
--- NOTE | 2023-08-25 15:30 | US_ITS ---
The [address] [address] Patient Name: JESÚS GONSALES MRN: [id number] date: 1935 Sex: F Assigned Patient Location: Current Patient Location: Accession/Order Number: [id number] Exam Date: 08/25/2023 16:00 Report Date: 08/25/2023 17:16 At the request of: TERA PLASCENCIA Procedure: US renal BI EXAM: Renal and bladder ultrasound CLINICAL INDICATION: Suspected obstruction L kidney, CT cant see. COMPARISON: CT scan from today TECHNIQUE: Grayscale and color Doppler imaging was obtained of both kidneys. FINDINGS: RIGHT: No hydronephrosis. Cortical echogenicity and thickness is preserved. The kidney measures 8.3 cm length. No sonographically evident renal calculi. No abnormal renal masses identified. LEFT: Giant staghorn calculus filling the left renal pelvis at and calyces which otherwise obscures much of the left kidney. The kidney measures 8.1 cm length. Bladder: No obvious sonographic abnormality. US/US renal BI IMPRESSION: 1. Giant left staghorn calculus limits visualization of the left kidney. 2. No right hydronephrosis. Electronically authenticated by: LARISSA NICK Date: 08/25/2023 17:16
--- NOTE | 2023-08-25 16:20 | CM.NOTE ---
Important Message From Medicare discussed with pt and daughter, both verbalize understanding and pt's daughter signs form. Original given to pt and copy placed on pt's chart.
[2023-08-25] MEDS: HYDRALAZINE HCL 25 MG TABLET PO (20:44)
[2023-08-25] MEDS: ATORVASTATIN CALCIUM 10 MG TABLET PO (20:44)
[2023-08-25] MEDS: CALCIUM ACETATE 667 MG CAPSULE PO (20:44)
[2023-08-25] MEDS: SULFAMETHOXAZOLE/TRIMETHOPRIM 800-160 MG TABLET 1 TAB PO (20:44)
[2023-08-25] MEDS: BUSPIRONE HCL 10 MG TABLET PO (20:44)
[2023-08-25] MEDS: CEFTRIAXONE 1,000 MG in 0.9 % SODIUM CHLORIDE 50 ML 100 MG IV (21:28)
--- NOTE | 2023-08-25 21:29 | PC.NURSE ---
RN went to begin antibiotic infusion for the patient. She stated that people left junk in her yard and needs to go back. She also states that she is calling the professor of psychology because she does not belong here. RN tried to re-orient the patient, but the attempts were un-successful.
--- NOTE | 2023-08-25 23:22 | PC.NURSE ---
pt is calling her daughter thinking she is calling the home teaching grades 9 thru 12 teacher. Daughter called the hospital to make sure someone is aware of the situation. RN and aide tried to reorient the patient. All attempts were unsuccessful. Patient is hallucinating saying there are men in here room and people are coming to get her. Pt ripped out her IV and now has no IV access. She is refusing oral medications because she does not trust them. RN tiger-text the tele-hospitalist to make him aware of the situation.
--- NOTE | 2023-08-25 23:58 | PC.NURSE ---
patient yelling help and screaming out. When RN and aide tried to go in to help her, she yelled that we needed to get out and asked why we were coming at her. patient continues to have hallucinations of men bringing dust into her room. Patient tried to climb out of bed to leave. Chris given IM per physician order.
--- NOTE | 2023-08-26 00:44 | PC.NURSE ---
patient is still agitated after geodon was administered. She tried to climb out of the bed a few times and was pulling on the jacome catheter tubing. pt is reaching into the air, and occasionally yelling at the aide. tele-hospitalist made aware.
--- NOTE | 2023-08-26 01:23 | PC.NURSE ---
pt is still restless and climbing out of bed
--- NOTE | 2023-08-26 01:53 | PC.NURSE ---
rodneye sitting at patient bedside. Pt told RN and aide that, I have cancer and I hope you get it from me. ; she is also is stating that people are trying to rape her. And she told the aide, I hope you get hit by a train and .
[2023-08-26 05:29] LABS: Basophils Percent Auto 0.3 % (0.2-2.0); Eosinophils Percent Auto 0.3 % (0.9-7.0); Hematocrit 41.2 % (36.0-48.0); Hemoglobin 12.9 g/dL (12.0-16.0); Immature Granulocytes Abs Auto 0.03 10^3/uL (0.00-0.03); Immature Granulocytes Pct Auto 0.3 % (0.0-0.5); Lymphocytes Absolute Auto 1.8 10^3/uL (1.2-3.8); Lymphocytes Percent Auto 18.6 % (20.5-60.0); Mean Corpuscular HGB Conc 31.3 g/dL (29.9-35.2); Mean Corpuscular Hemoglobin 30.9 pg (26.7-34.0); Mean Corpuscular Volume 98.6 fL (81.0-99.0); Mean Platelet Volume 10.8 fL (9.5-13.5); Monocytes Absolute Auto 0.8 10^3/uL (0.3-0.8); Monocytes Percent Auto 8.6 % (1.7-12.0); Neutrophils Absolute Auto 6.9 10^3/uL (1.4-6.5); Neutrophils Percent Auto 71.9 % (43.0-75.0); Platelet Count 205 10^3/uL (150-450); Red Blood Count 4.18 10^6/uL (4.20-5.40); Red Cell Distribution Width 13.4 % (11.0-15.0); White Blood Count 9.6 10^3/uL (4.0-11.0)
[2023-08-26 05:30] LABS: Anion Gap 13.2; BUN Creatinine Ratio 11.4; Calcium 9.4 mg/dL (8.5-10.1); Carbon Dioxide 28.2 mmol/L (21.0-32.0); Chloride 108 mmol/L (98-107); Estimated GFR (African America 24 (>=60); Estimated GFR (Non-African Ame 20 (>=60); Glucose 139 mg/dL (74-106); Potassium 3.4 mmol/L (3.5-5.1); Sodium 146 mmol/L (136-145)
[2023-08-26 06:00] VITALS: BP 131/75; PULSE 78
--- NOTE | 2023-08-26 06:56 | PC.NURSE ---
RN and aide at bedside to complete vital signs. We were able to obtain a blood pressure and pulse, patient refused the rest of the vital signs.
[2023-08-26] MEDS: HYDRALAZINE HCL 25 MG TABLET PO (10:04)
[2023-08-26] MEDS: CALCIUM ACETATE 667 MG CAPSULE PO (10:04)
[2023-08-26] MEDS: SULFAMETHOXAZOLE/TRIMETHOPRIM 800-160 MG TABLET 1 TAB PO (10:04)
[2023-08-26] MEDS: BUSPIRONE HCL 10 MG TABLET PO (10:05)
--- NOTE | 2023-08-26 10:52 | PT.DAILY ---
Physical Therapy Daily Note PT Daily Note/Assess Start: 08/26/23 10:48 Freq: Status: Active Protocol: Document 08/26/23 10:48 HERMANN (Rec: 08/26/23 10:52 HERMANN [id number]) Physical Therapy Daily Note/Assessment Time In/Time Out Time In 09:58 Time Out 10:10 Pain In Pain N/A Pain Out Pain N/A Subjective Subjective Pt standing in restroom with OT and care is taken over from there for PT session. Pt apparently had a rough night/ morning and was sedated. Seems a little confused this morning. Therapeutic Exercise Time Therapeutic Exercise Minutes (minutes) 3 Therapeutic Exercise Units 0 Therapeutic Exercise Treatment Therapeutic Exercise Treatment Seated AP, LAQ and marches complete 10x ea with motivation to complete. Therapeutic Activity Time Therapeutic Activity Minutes (minutes) 8 Therapeutic Activity Units 1 Therapeutic Activity Treatment Chair Transfer Ability Standby Assistance Therapeutic Activity Comments Pt amb 35' to BS chair with RW , SBA. Sits in BS chair for edu of why PT is present. Pt performs 5x sit>stand from BS chair with SBA. Seated ex complete in BS chair then remains in BS chair with chair alarm set and call light within reach. Nursing notified pt in BS chair. Total Physical Therapy Time Total Therapy Minutes 11 Total Physical Therapy Units 1 Summary Daily Note Summary IMproved gait distance. More steady with RW vs SW - swapped out today. Confused/impulsive .
--- NOTE | 2023-08-26 11:17 | P.DS_ITS ---
Patient seen and examined, agree with assessment and plan below. Admitted with confusion and UTI. Found large kidney stone. Improved with treatment. Urology felt patient needs procedure by IR and surgery through tube which can't be performed at [facility]. Discharged in stable condition and will f/u with urology. Diagnosis: 1. UTI 2. Staghorn calculus 3. Obstructive uropathy 4. Metabolic encephalopathy 5. HTN 6. CKD IV 7. Dementia DS: Providers Provider Date of admission: 08/25/23 15:18 Primary care physician: Marybeth Faustin MD Consults: 08/25/23 01:48 Occupational Therapy Eval and Treat Routine Reason for consultation: weakness Physical Therapy Eval and Treat Routine Reason for consultation: weakness 08/25/23 10:08 Consult to Urology Routine Consulting Provider: Harsh Castro Reason for consultation: L renal calculi, possible hydroneph on CT, PRESTON Has provider been notified: No Discharging clinician: Rosa M Burciaga DS: Diagnosis Discharge Diagnosis (1) Urinary tract infection: (2) Obstructive uropathy: (3) Acute metabolic encephalopathy: (4) HTN (hypertension): (5) Dementia: (6) Chronic kidney disease: DS: Summary Hospital Course Hospital Course: The patient was admitted to observation with an acute UTI that was suspected as failed outpatient treatment and acute metabolic encephalopathy. She was subsequently found to have obstructive uropathy with a large staghorn calculi in her left kidney and ureter with hydronephrosis suspected. The kidney could not be fully visualized on CT imaging d/t artifact from a HAYDEE. She was changed to inpatient status d/t obstructive uropathy and Urology was consulted. Further imaging with renal ultrasound confirmed position of the stone but was unable to fully visualize the kidney to assess hydronephrosis d/t the stone blocking imaging. The case was reviewed by Dr. Castro, urologist, and he does not have clinical concern for acute severe hydronephrosis at this time. He does note that the stone will require intervention by interventional radiology for percutaneous drain placement and access of this large calculi via the kidney to prevent continually recurrent UTIs. If this procedure is not performed the patient could consider a left nephrectomy as well. He recommends that the patient and her DPOA daughter follow-up with him as an outpatient to consider options and he will provide further referrals from there if indicated. The hilda ent's urine did not grow out any bacteria and likely represents sterile pyuria. Her encephalopathy is persisting, however we suspect there may be some advancement of her chronic dementia. She is being discharged sooner than expected in this setting back to her home assisted living facility with plans to follow-up as an outpatient with Dr. Castro. We recommend that she continue her outpatient Bactrim prescription for UTI suppression pending further evaluation by Dr. Castro. Status at Discharge Functional status at discharge: uses cane/walker Overall status at discharge: patient is progressing back to baseline Time Spent with Patient Time attestation: Total time spent providing and/or coordinating discharge services: Time spent: greater than 30 minutes Specific discharge activities: Physical exam, discussion of discharge plan, questions answered. Exam Constitutional Vital Signs, click to edit/add: Last Vital Signs Temp 98.6 F 08/25/23 20:48 Pulse 78 08/26/23 06:00 Resp 18 08/25/23 20:48 BP 131/75 08/26/23 06:00 Pulse Ox 94 L 08/25/23 20:48 O2 Del Method Room Air 08/25/23 20:48 Common normals: no apparent distress General appearance: cooperative Orientation/consciousness: Yes oriented to person and Yes confused; not oriented to place and not oriented to time HENMT Common normals: normocephalic and head/scalp atraumatic Eye Common normals: PERRL, EOMs intact bilaterally, conjunctivae normal and no scleral icterus Neck & C-Spine Common normals: no JVD Respiratory Common normals: normal respiratory effort, no use of accessory muscles and clear to auscultation bilaterally Effort & inspection: able to speak in complete sentences and symmetric chest movement Cardio Common normals: no JVD, regular rate, regular rhythm, S1 normal heart sound, S2 normal heart sound, no murmurs and peripheral pulses 2+ throughout GI Common normals: Normal to inspection, nondistended, normoactive bowel sounds present and soft to palpation Bladder/kidney exam: bladder normal to palpation Extremity Common normals: normal to inspection, full ROM, normal capillary refill and no pedal edema General: no clubbing and no cyanosis Neuro Common normals: moves all extremities, no focal motor deficits and no sensory deficits noted Psych Common normals: activity/motor behavior normal DS: Data Data Completed and Pending Completed studies during hospitalization: CXR: IMPRESSION: 1. No acute cardiopulmonary abnormality. CT Head: IMPRESSION: No CT evidence of acute intracranial abnormality. Further evaluation with MRI imaging would be recommended if there is concern for acute infarction. Nonacute findings as discussed. CT Abdomen/Pelvis: IMPRESSION: There is an extremely large staghorn calculus on the left as described. There is no definite hydronephrosis. Note that this exam does not exclude an active pyelonephritis. Constipation. Atherosclerotic disease. Renal US: IMPRESSION: 1. Giant left staghorn calculus limits visualization of the left kidney. 2. No right hydronephrosis. Labs on day of discharge: Labs from last 24 hours 08/26/23 04:06 WBC 9.6 RBC 4.18 L Hgb 12.9 Hct 41.2 MCV 98.6 MCH 30.9 MCHC 31.3 RDW 13.4 Plt Count 205 MPV 10.8 Neut % (Auto) 71.9 Lymph % (Auto) 18.6 L [place] % (Auto) 8.6 Eos % (Auto) 0.3 L Baso % (Auto) 0.3 Neut # (Auto) 6.9 H Lymph # (Auto) 1.8 [place] # (Auto) 0.8 Eos # (Auto) 0.0 Baso # (Auto) 0.0 Abs Immat Gran (auto) 0.03 Imm/Tot Granulo (auto) 0.3 Sodium 146 H Potassium 3.4 L Chloride 108 H Carbon Dioxide 28.2 Anion Gap 13.2 BUN 26.0 H Creatinine 2.29 H Est GFR ( Amer) 24 L Est GFR (Non-Af Amer) 20 L BUN/Creatinine Ratio 11.4 Glucose 139 H Calcium 9.4 Discharge Plan Discharge Disposition: Home, Self-Care Condition: Good Discharge Medications: Continued ascorbic acid (vitamin C) [Vitamin C] 500 mg tablet 500 mg PO .QD buspirone 10 mg tablet 10 mg PO BID calcitriol 0.25 mcg capsule 0.25 mcg PO .QD verapamil 180 mg tablet extended release 180 mg PO .QD hydralazine 25 mg tablet 25 mg PO BID hydrocodone-acetaminophen 10-325 mg tablet 1 tab PO Q8H PRN (Reason: pain) potassium chloride 20 mEq tablet,ER particles/crystals 20 meq PO .QD lorazepam 0.5 mg tablet 0.5 mg PO Q8H PRN (Reason: anxiety) pravastatin 10 mg tablet 10 mg PO QPM ferrous sulfate 325 mg (65 mg iron) tablet 325 mg PO .QD docusate sodium 100 mg capsule 100 mg PO BID furosemide 20 mg tablet 20 mg PO .QD multivitamin with folic acid [High Potency Multivitamin] 400 mcg tablet 1 tab PO .QD melatonin 10 mg tablet,disintegrating 10 mg PO .QHS PRN (Reason: sleep) calcium acetate 667 mg tablet 667 mg PO BID sulfamethoxazole-trimethoprim 800-160 mg tablet 1 tab PO BID Qty: 0 0RF Rx Instructions: 08/24/23 FOR 7 DAYS Activity: ambulate only with your walker Diet: advance to your usual diet Patient Instructions: Kidney Stones (DC), Urinary Tract Infection in Women (DC), Urinary Tract Infection in Older Adults (DC) Forms: Portal Instructions Follow Up Appointments: - Follow up appt. with Dr. Faustin on Sep.02 @ 11:30am - discuss possible advancing dementia office #: [phone] - Follow up appt. with Dr. Ceasar Garland (urology) on . @ 9:40am for kidney stone office location: [facility], [address] [place] [address], [address] office #: [phone]
--- NOTE | 2023-08-26 11:42 | PM.CN ---
Consult Note: [facility] Data of Consult Consult date: 08/26/23 Requesting Physician: Rosa M Burciaga NP Primary Care Provider: Marybeth Faustin MD Consult Narrative Reason for consult: left-sided staghorn calculus and urinary tract infection Narrative: this 88-year-old lady developed acute confusion and abdominal pain. She was brought to the Emergency Room with the above complaints. She was afebrile.. Her urine looked infected. She was started on Bactrim. Her white count was normal. Her creatinine was stable at 2.2. She did get a CT scan done and this showed an extremely large left-sided staghorn calculus occupying most of the intrarenal collecting system including the renal pelvis and UPJ region. Urology was consulted for the above reason theses. My consult is a chart review and talking to the attending, and the nursing staff because of the patient's confusion and disorientation. cc:: CC: Rosa M Burciaga NP Review of Systems ROS Status of ROS unobtainable due to medical condition PFSH PFS Medical History Chronic kidney disease ?N18.9 - Chronic kidney disease, unspecified (ICD-10) CKD (chronic kidney disease) stage 4, GFR 15-29 ml/min ?N18.4 - Chronic kidney disease, stage 4 (severe) (ICD-10) Dementia ?F03.90 - Unspecified dementia, unspecified severity, without behavioral disturbance, psychotic disturbance, mood disturbance, and anxiety (ICD-10) HTN (hypertension) ?I10 - Essential (primary) hypertension (ICD-10) Skin cancer ?C44.90 - Unspecified malignant neoplasm of skin, unspecified (ICD-10) Surgical History (Updated 08/25/23 @ 00:26 by Rosario Andersen) History of hip surgery ?Z98.890 - Other specified postprocedural states (ICD-10) Family History (Updated 08/25/23 @ 00:27 by Rosario Andersen) Grandmother Family history of stroke Grandfather Family history of stroke Social History (Updated 08/25/23 @ 00:28 by Rosario Andersen) Within the past year, how often did you have a drink containing alcohol: never Score interpretation: A score less than 3 is consistent with normal alcohol consumption. Smoking status: Never smoker Second hand tobacco smoke exposure: No Non-prescribed substance use: denies use Previous occupational history: retired Known occupational exposures/hazards: No Highest level of school completed/degree received: high school graduate Do you want help with school or training: No Are you now , , , , never or living with a partner: In a typical week, how many times do you talk on the telephone with family, friends, or neighbors: 3 or more times per week How often do you get together with friends or relatives: 3 or more times per week How often do you attend nondenominational or latter day services: never Do you belong to any clubs or organizations such as nondenominational groups unions, [employer] or athletic groups, or school groups: no Total score: 1 Score interpretation: A score of less than or equal to 1 indicates the most socially isolated. Little interest or pleasure in doing things: not at all Feeling down, depressed, or hopeless: not at all Feel stressed/tense/nervous/anxious/difficulty sleeping: very much Life stressor details: medical issues Due to disability, difficulty making decisions: No Do you think of yourself as: straight/heterosexual Gender Identity: female Meds Home Medications and Allergies Home Medications Medication Instructions Recorded Confirmed Type ascorbic acid (vitamin C) 500 mg 500 mg PO .QD 08/24/23 08/25/23 History tablet (Vitamin C) buspirone 10 mg tablet 10 mg PO BID 08/24/23 08/25/23 History calcitriol 0.25 mcg capsule 0.25 mcg PO .QD 08/24/23 08/25/23 History calcium acetate 667 mg tablet 667 mg PO BID 08/24/23 08/25/23 History docusate sodium 100 mg capsule 100 mg PO BID 08/24/23 08/25/23 History ferrous sulfate 325 mg (65 mg 325 mg PO .QD 08/24/23 08/25/23 History iron) tablet furosemide 20 mg tablet 20 mg PO .QD 08/24/23 08/25/23 History hydralazine 25 mg tablet 25 mg PO BID 08/24/23 08/25/23 History hydrocodone 10 mg-acetaminophen 1 tab PO Q8H PRN pain 08/24/23 08/25/23 History 325 mg tablet lorazepam 0.5 mg tablet 0.5 mg PO Q8H PRN anxiety 08/24/23 08/25/23 History melatonin 10 mg disintegrating 10 mg PO .QHS PRN sleep 08/24/23 08/25/23 History tablet multivitamin with folic acid 400 1 tab PO .QD 08/24/23 08/25/23 History mcg tablet (High Potency Multivitamin) potassium chloride 20 mEq 20 meq PO .QD 08/24/23 08/25/23 History tablet,extended release(part/cryst) pravastatin 10 mg tablet 10 mg PO QPM 08/24/23 08/25/23 History verapamil 180 mg tablet,extended 180 mg PO .QD 08/24/23 08/25/23 History release sulfamethoxazole 800 1 tab PO BID #0 tabs 08/26/23 08/25/23 Rx mg-trimethoprim 160 mg tablet Allergies Allergy/AdvReac Type Severity Reaction Status Date / Time No Known Drug Allergies Allergy Verified 08/24/23 20:42 Exam Narrative Exam Narrative: she is afebrile. Her vital signs are stable. She is in no acute distress. Constitutional Vital Signs, click to edit/add: Last Vital Signs Temp 98.6 F 08/25/23 20:48 Pulse 78 08/26/23 06:00 Resp 18 08/25/23 20:48 BP 131/75 08/26/23 06:00 Pulse Ox 94 L 08/25/23 20:48 O2 Del Method Room Air 08/25/23 20:48 Results Labs Labs: Short CBC 08/26/23 Range/Units 04:06 WBC 9.6 (4.0-11.0) 10^3/uL Hgb 12.9 (12.0-16.0) g/dL Hct 41.2 (36.0-48.0) % Plt Count 205 (150-450) 10^3/uL BMP 08/26/23 04:06 Sodium 146 H Potassium 3.4 L Chloride 108 H Carbon Dioxide 28.2 BUN 26.0 H Creatinine 2.29 H Glucose 139 H Calcium 9.4 Assessment and Plan Assessment and Plan (1) Urinary tract infection: (2) Chronic kidney disease: (3) Staghorn calculus: Assessment and Plan: this lady has a large left-sided staghorn calculus. This is most likely contributing to her urinary tract infections and ppossibly her chronic renal insufficiency.. It also may be contributing to some abdominal pain. This stone would need to be managed percutaneously. This would require a percutaneous nephrostomy tube to be placed by interventional radiology. This service is not available at [facility] nor at [facility]. Therefore, she would need to get evaluated at a tertiary center and then she could get appropriate management for her advanced nephrolithiasis. Thank you for letting me take part in her care.
--- NOTE | 2023-08-26 11:42 | CM.NOTE ---
Rounds made with Dr. Goldman, pt ok for discharge today. Called [facility] regarding pt's daughter request for her to have PT and OT throught [facility]. [facility] requesting outpatient therapy order. MARIAN Mederos signed outpatient order and will be sent with pt's discharge instructions. Called pt's daughter to update.
--- NOTE | 2023-08-27 12:40 | CM.DCFOLLOWU ---
Person spoke with: daughterMaranda How are you feeling? doing better today. How is your pain? no complaints. Did you understand your discharge instructions? Yes Do you have any questions about your discharge instructions? No questions Were you given any prescriptions at discharge? all is taken care of Were you able to get your prescriptions filled? yes Do you understand how to take your medications as ordered? yes Do you have any questions about your follow up appointment and do you plan to keep your follow up appointment? Seeing Dr. Faustin today ~100pm. Specialist appt had been previously made. Is there anything else that you would like to discuss? No Questions/Comments/Concerns/Other:
== END 2023-08-26 13:29 | disposition home or self-care (01) | DRG 689 ==
LOC: ER 21:59 → MS 08-25 00:15
PROVIDERS: Internal Medicine; Physician Assistant; Admitting Provider Family Medicine; Emergency Provider Internal Medicine; PCP Family Medicine; Visit Provider Nurse Practitioner
DX: N13.6 Pyonephrosis (principal); G93.41 Metabolic encephalopathy; N17.9 Acute kidney failure, unspecified; N18.4 Chronic kidney disease, stage 4 (severe); I12.9 Hypertensive chronic kidney disease with stage 1 through stage 4 chronic kidney disease, or unspecified chronic kidney disease; F03.90 Unspecified dementia, unspecified severity, without behavioral disturbance, psychotic disturbance, mood disturbance, and anxiety; Z87.440 Personal history of urinary (tract) infections; Z96.652 Presence of left artificial knee joint; Z85.828 Personal history of other malignant neoplasm of skin; Z79.899 Other long term (current) drug therapy; Z66 Do not resuscitate
CPT/HCPCS: 36415; 51702; 70450; 71045; 74176; 76775; 80048; 80053; 81001; 83605; 84443; 84484; 85025; 85610; 87086; 87150; 87186; 93005; 96365; 96366; 96372; 96375; 97162; 97165; 97530; 99285; Q3014

== ENCOUNTER 2023-09-05 21:00 | Outpatient (REF) | payer MEDICARE, MEDICAID, SELFPAY ==
[2023-09-06 12:08] LABS: Bilirubin Urine NEGATIVE (NEGATIVE); Blood Urine NEGATIVE (NEGATIVE); Clarity Urine CLEAR (CLEAR); Color Urine LT. YELLOW (YELLOW); Glucose Urine UA NEGATIVE (NEGATIVE); Ketones Urine NEGATIVE (NEGATIVE); Leukocyte Esterase Urine MODERATE (NEGATIVE); Nitrite Urine NEGATIVE (NEGATIVE); Protein Urine NEGATIVE (NEG/TRACE); Urobilinogen Urine 0.2 EU/dL (0.2-1.0); pH Urine 5.5 (5.0-9.0)
[2023-09-06 12:10] LABS: Urine Microscopic Indicated YES
[2023-09-06 12:17] LABS: Bacteria Urine TRACE #/HPF (NONE SEEN); Calcium Oxalate Crystals Urine RARE; Cast Seen? NONE SEEN #/LPF (NONE SEEN); Crystals Seen? Seen #/HPF (None Seen); Mucus Urine NONE SEEN (NONE SEEN); RBC Urine 0-2 #/HPF (0-2); Squamous Epithelial Cell Urine RARE #/LPF (NONE/RARE); Urine Culture Indicated YES
[2023-09-06 13:00] LABS: Creatinine Urine Random 81.22 mg/dL (20.00-300.00); Total Protein Urine Random 35.9 mg/dL (<=11.9)
== END 2023-09-05 21:01 | disposition home or self-care (01) ==
LOC: LAB 21:00
PROVIDERS: PCP Family Medicine
DX: I12.9 Hypertensive chronic kidney disease with stage 1 through stage 4 chronic kidney disease, or unspecified chronic kidney disease (principal); N18.4 Chronic kidney disease, stage 4 (severe); R82.89 Other abnormal findings on cytological and histological examination of urine
CPT/HCPCS: 81001; 82570; 84156; 87086

== ENCOUNTER 2023-09-06 09:19 | Outpatient (REF) | payer MEDICARE, MEDICAID, SELFPAY ==
[2023-09-06 10:18] LABS: Basophils Percent Auto 0.3 % (0.2-2.0); Eosinophils Absolute Auto 0.2 10^3/uL (0.0-0.7); Eosinophils Percent Auto 2.7 % (0.9-7.0); Hemoglobin 10.2 g/dL (12.0-16.0); Immature Granulocytes Abs Auto 0.02 10^3/uL (0.00-0.03); Immature Granulocytes Pct Auto 0.3 % (0.0-0.5); Lymphocytes Absolute Auto 2.1 10^3/uL (1.2-3.8); Lymphocytes Percent Auto 32.1 % (20.5-60.0); Mean Corpuscular HGB Conc 30.9 g/dL (29.9-35.2); Mean Corpuscular Hemoglobin 31.2 pg (26.7-34.0); Mean Corpuscular Volume 100.9 fL (81.0-99.0); Mean Platelet Volume 10.4 fL (9.5-13.5); Monocytes Absolute Auto 0.8 10^3/uL (0.3-0.8); Monocytes Percent Auto 12.4 % (1.7-12.0); Neutrophils Absolute Auto 3.3 10^3/uL (1.4-6.5); Neutrophils Percent Auto 52.2 % (43.0-75.0); Platelet Count 215 10^3/uL (150-450); Red Blood Count 3.27 10^6/uL (4.20-5.40); White Blood Count 6.4 10^3/uL (4.0-11.0)
[2023-09-06 10:44] LABS: Albumin Level 2.9 g/dL (3.4-5.0); Anion Gap 13.1; BUN Creatinine Ratio 16.1; Carbon Dioxide 26.3 mmol/L (21.0-32.0); Chloride 106 mmol/L (98-107); Estimated GFR (African America 25 (>=60); Estimated GFR (Non-African Ame 21 (>=60); Glucose 108 mg/dL (74-106); Phosphorus 4.4 mg/dL (2.6-4.7); Potassium 4.4 mmol/L (3.5-5.1); Sodium 141 mmol/L (136-145); Uric Acid 5.3 mg/dL (2.6-6.0)
[2023-09-07 13:08] LABS: PTH, Intact 54 pg/mL (15-65)
[2023-09-08 08:36] LABS: Magnesium 2.2 mg/dL (1.8-2.4)
== END 2023-09-06 09:20 | disposition home or self-care (01) ==
LOC: LAB 09:19
PROVIDERS: PCP Family Medicine
DX: I12.9 Hypertensive chronic kidney disease with stage 1 through stage 4 chronic kidney disease, or unspecified chronic kidney disease (principal); N18.4 Chronic kidney disease, stage 4 (severe)
CPT/HCPCS: 36415; 80069; 83735; 83970; 84550; 85025

== ENCOUNTER 2023-09-30 | Outpatient (REF) | payer MEDICARE, MEDICAID, SELFPAY ==
--- OUTSIDE RECORDS SUMMARY | 2023-10-01 08:25 | XMS_ITS | CCD ---
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.] Propensity to adverse reactions to drug (disorder) [facility] Medications Current Medications Medication Drug Class(es) [...] tablet by mouth every six hours Hydrocodone-Acetaminophen ([place]) 10-325 mg Tablet Active 1 TAB PO [...] 1 tablet by mouth at dinner Vitamins A,C,C-Basy-Fysytw (Preservision Areds) 2,148 mcg-113 mg-45 mg-17.4mg Tablet [...] ARE DS 2 - as directed Orally 647-99-62-1MG Active calcitriol 0.15329 mg oral capsule (20 sources) Vitamin D3 Analog Start: take 0.25 ug by mouth once daily Calcitriol Active 0.25 MCG PO Daily August 31, 2023 12:00am take 1 capsule by [facility] three times weekly Calcitriol 0.25 MCG 1 capsule Orally Thr ee times a Week Active take 1 capsule by [facility] three times weekly Calcitriol 0.25 MCG 1 capsule Orally Thr ee times a Week Active Comment on above: Take 0.25 mcg by [facility]. calcium acetate 667 mg oral tablet [...] 31, 2023 12:00am take 1 tablet by [facility] every eight hours hydrALAZINE HCl 25 [...] IVPB extended infusion (mini-bag) polyethylene glycol 3350 28661 mg powder for oral solution (20 sources) [...] intertrochanteric fracture of left femur, initial encounter ([facility])] Episodic Genitourinary symptoms and ill-defined conditions (9 [...] Test Name Value Interpretation Reference [facility] Tele[facility] (UROLMN) OVIDIOMEENU ([id number]) 1935 F Date Time Provider Department 09/29/23 [...] Date Reviewed: 09/23/2023 Reviewed by: Ulises Ocampo APRN.PHYSICAL THERAPIST, DNP - Fully Assessed Prescriptions as of [...] Status:Closed by MONI CHAUDHARI on 09/29/[address] [facility] Bacteria Ur Culton 3 Bacteria identified [...] , Intermediate >32 , Resistant >[address] [facility] Comment on above: Performed By: #### 6 30-4 ####[facility] [id number] [place] [address] [place] CBC W Auto Differential pane l (Bld)on 09-23-2023 Basophils (Bld) [#/Vol] 10*3/uL Normal <0.11 [facility] Comment on above: Order Comment: Speci men Type: BLOOD SPECIMEN Ordering Facility: [facility] Address: [address] [place] [address] Performed By: #### 5 7021-8 #### [facility] CLIA [id number] [address] [place] [address] [place] Basophils/100 WBC (Bld) 0.3 % Normal [facility] Comment on above: Order Comment: Speci men Type: BLOOD SPECIMEN Ordering Facility: [facility] Address: [address] [place] [address] Performed By: #### 5 7021-8 #### [facility] CLIA [id number] [address] [place] [address] [place] Differential cell count method Nom (Bld) Auto Normal [facility] Comment on above: Order Comment: Speci men Type: BLOOD SPECIMEN Ordering Facility: [facility] Address: [address] [place] [address] Performed By: #### 5 7021-8 #### [facility] CLIA [id number] [address] [place] [address] [place] Eosinophils (Bld) [#/Vol] 0.16 10*3/uL Normal <0.[address] [facility] Comment on above: Order Comment: Speci men Type: BLOOD SPECIMEN Ordering Facility: [facility] Address: [address] [place] [address] Performed By: #### 5 7021-8 #### [facility] CLIA [id number] [address] [place] [address] [place] Eosinophils/100 WBC (Bld) 2.2 % Normal [facility] Comment on above: Order Comment: Speci men Type: BLOOD SPECIMEN Ordering Facility: [facility] Address: [address] [place] [address] Performed By: #### 5 7021-8 #### [facility] CLIA [id number] [address] [place] [address] [place] Erythrocyte distribution width (RBC) [Ratio] 14.0 % Normal 11.5-15.[address] [facility] Comment on above: Order Comment: Speci men Type: BLOOD SPECIMEN Ordering Facility: [facility] Address: [address] [place] [address] Performed By: #### 5 7021-8 #### [facility] CLIA [id number] [address] [place] [address] [place] Hematocrit (Bld) [Volume fraction] 39.8 % Normal 36.0-46.[address] [facility] Comment on above: Order Comment: Speci men Type: BLOOD SPECIMEN Ordering Facility: [facility] Address: [address] [place] [address] Performed By: #### 5 7021-8 #### [facility] CLIA [id number] [address] [place] [address] [place] Hemoglobin (Bld) [Mass/Vol] 12.6 g/dL Normal 11.5-15.[address] [facility] Comment on above: Order Comment: Speci men Type: BLOOD SPECIMEN Ordering Facility: [facility] Address: [address] [place] [address] Performed By: #### 5 7021-8 #### [facility] CLIA [id number] [address] [place] [address] [place] Immature granulocytes (Bld) [#/Vol] 10*3/uL Normal <0.[address] [facility] Comment on above: Order Comment: Speci men Type: BLOOD SPECIMEN Ordering Facility: [facility] Address: [address] [place] [address] Performed By: #### 5 7021-8 #### [facility] CLIA [id number] [address] [place] [address] [place] Immature granulocytes/100 WBC (Bld) 0.1 % Normal [facility] Comment on above: Order Comment: Speci men Type: BLOOD SPECIMEN Ordering Facility: [facility] Address: [address] [place] [address] Performed By: #### 5 7021-8 #### [facility] CLIA [id number] [address] [place] [address] [place] Lymphocytes (Bld) [#/Vol] 2.33 10*3/uL Normal 1.00-4.[address] [facility] Comment on above: Order Comment: Speci men Type: BLOOD SPECIMEN Ordering Facility: [facility] Address: [address] [place] [address] Performed By: #### 5 7021-8 #### [facility] CLIA [id number] [address] [place] [address] [place] Lymphocytes/100 WBC (Bld) 31.4 % Normal [facility] Comment on above: Order Comment: Speci men Type: BLOOD SPECIMEN Ordering Facility: [facility] Address: [address] [place] [address] Performed By: #### 5 7021-8 #### [facility] CLIA [id number] [address] [place] [address] [place] MCH (RBC) [Entitic mass] 31.7 pg Normal 26.0-34.[address] [facility] Comment on above: Order Comment: Speci men Type: BLOOD SPECIMEN Ordering Facility: [facility] Address: [address] [place] [address] Performed By: #### 5 7021-8 #### [facility] CLIA [id number] [address] [place] [address] [place] MCHC (RBC) [Mass/Vol] 31.7 g/dL Normal 30.5-36.0 [facility] Comment on above: Order Comment: Speci men Type: BLOOD SPECIMEN Ordering Facility: [facility] Address: [address] [place] [address] Performed By: #### 5 7021-8 #### [facility] CLIA [id number] [address] [place] [address] [place] MCV (RBC) [Entitic vol] 100.3 fL High 80.0-100.0 [facility] Comment on above: Order Comment: Speci men Type: BLOOD SPECIMEN Ordering Facility: [facility] Address: [address] [place] [address] Performed By: #### 5 7021-8 #### [facility] CLIA [id number] [address] [place] [address] [place] Monocytes (Bld) [#/Vol] 0.77 10*3/uL Normal <0.[address] [facility] Comment on above: Order Comment: Speci men Type: BLOOD SPECIMEN Ordering Facility: [facility] Address: [address] [place] [address] Performed By: #### 5 7021-8 #### [facility] CLIA [id number] [address] [place] [address] [place] Monocytes/100 WBC (Bld) 10.4 % Normal [facility] Comment on above: Order Comment: Speci men Type: BLOOD SPECIMEN Ordering Facility: [facility] Address: [address] [place] [address] Performed By: #### 5 7021-8 #### [facility] CLIA [id number] [address] [place] [address] [place] Neutrophils (Bld) [#/Vol] 4.14 10*3/uL Normal 1.45-7.[address] [facility] Comment on above: Order Comment: Speci men Type: BLOOD SPECIMEN Ordering Facility: [facility] Address: [address] [place] [address] Performed By: #### 5 7021-8 #### [facility] CLIA [id number] [address] [place] [address] [place] Neutrophils/100 WBC (Bld) 55.6 % Normal [facility] Comment on above: Order Comment: Speci men Type: BLOOD SPECIMEN Ordering Facility: [facility] Address: [address] [place] [address] Performed By: #### 5 7021-8 #### [facility] CLIA [id number] [address] [place] [address] [place] Nucleated RBC (Bld) [#/Vol] 10*3/uL Normal <0.[address] [facility] Comment on above: Order Comment: Speci men Type: BLOOD SPECIMEN Ordering Facility: [facility] Address: [address] [place] [address] Performed By: #### 5 7021-8 #### [facility] CLIA [id number] [address] [place] [address] [place] Nucleated RBC/100 WBC (Bld) [Ratio] 0.0 /100 WBC Normal [facility] Comment on above: Order Comment: Speci men Type: BLOOD SPECIMEN Ordering Facility: [facility] Address: [address] [place] [address] Performed By: #### 5 7021-8 #### [facility] CLIA [id number] [address] [place] [address] [place] Platelet mean volume (Bld) [Entitic vol] 10.3 fL Normal 9.0-12.[address] [facility] Comment on above: Order Comment: Speci men Type: BLOOD SPECIMEN Ordering Facility: [facility] Address: [address] [place] [address] Performed By: #### 5 7021-8 #### [facility] CLIA [id number] [address] [place] [address] [place] Platelets (Bld) [#/Vol] 228 10*3/uL Normal 150-[address] [facility] Comment on above: Order Comment: Speci men Type: BLOOD SPECIMEN Ordering Facility: [facility] Address: [address] [place] [address] Performed By: #### 5 7021-8 #### [facility] CLIA [id number] [address] [place] [address] [place] RBC (Bld) [#/Vol] 3.97 10*6/uL Normal 3.90-5.20 [facility] Comment on above: Order Comment: Speci men Type: BLOOD SPECIMEN Ordering Facility: [facility] Address: [address] [place] [address] Performed By: #### 5 7021-8 #### [facility] CLIA [id number] [address] [place] [address] [place] WBC (Bld) [#/Vol] 7.43 10*3/uL Normal 3.70-11.00 [facility] Comment on above: Order Comment: Speci men Type: BLOOD SPECIMEN Ordering Facility: [facility] Address: [address] [place] [address] Performed By: #### 5 7021-8 #### [facility] CLIA [id number] [address] [place] [address] [place] CONFIRM BLOOD TYPEon 12-28-2 023 ABO A Normal [facility] Comment on above: Order Comment: Speci men Type: BLOOD SPECIMEN Ordering Facility: [facility] Address: [address] [place] [address] Performed By: #### C ONABO #### [facility] CLIA [id number] [address] [place] [address] [place] Rh Nom (Bld) Positive Normal [facility] Comment on above: Order Comment: Speci men Type: BLOOD SPECIMEN Ordering Facility: [facility] Address: [address] [place] [id number] Performed By: #### C ONAB #### [facility] CLIA [id number] [address] [place] [address] [place] Comprehensive metabolic 2000 panelon 09-23-2023 Albumin [Mass/Vol] 4.3 g/dL Normal 3.9-4.9 [facility] Comment on above: Order Comment: Speci men Type: BLOOD SPECIMEN Ordering Facility: [facility] Address: [address] [place] [address] Performed By: #### 2 4323-8 #### [facility] CLIA [id number] [address] [place] [address] [place] ALP [Catalytic activity/Vol] 96 U/L Normal 34-[address] [facility] Comment on above: Order Comment: Speci men Type: BLOOD SPECIMEN Ordering Facility: [facility] Address: [address] [place] [id number] Performed By: #### 2 4323-8 #### [facility] CLIA [id number] [address] [place] [address] [place] ALT [Catalytic activity/Vol] 17 U/L Normal 7-[address] [facility] Comment on above: Order Comment: Speci men Type: BLOOD SPECIMEN Ordering Facility: [facility] Address: [address] [place] [address] Performed By: #### 2 4323-8 #### [facility] CLIA [id number] [address] [place] [id number] [place] Anion gap [Moles/Vol] 15 mmol/L Normal 9-18 [facility] Comment on above: Order Comment: Speci men Type: BLOOD SPECIMEN Ordering Facility: [facility] Address: [address] [place] [id number] Performed By: #### 2 4323-8 #### [facility] CLIA [id number] [address] [place] [id number] [place] AST [Catalytic activity/Vol] 22 U/L Normal 13-[address] [facility] Comment on above: Order Comment: Speci men Type: BLOOD SPECIMEN Ordering Facility: [facility] Address: [address] [place] [address] Performed By: #### 2 4323-8 #### [facility] CLIA [id number] [address] [place] [address] [place] Bilirubin [Mass/Vol] 0.3 mg/dL Normal 0.2-1.[address] [facility] Comment on above: Order Comment: Speci men Type: BLOOD SPECIMEN Ordering Facility: [facility] Address: [address] [place] [address] Performed By: #### 2 4323-8 #### [facility] CLIA [id number] [address] [place] [address] [place] Calcium [Mass/Vol] 9.4 mg/dL Normal 8.5-10.2 [facility] Comment on above: Order Comment: Speci men Type: BLOOD SPECIMEN Ordering Facility: [facility] Address: [address] [place] [address] Performed By: #### 2 4323-8 #### [facility] CLIA [id number] [address] [place] [address] [place] Chloride [Moles/Vol] 103 mmol/L Normal 97-[address] [facility] Comment on above: Order Comment: Speci men Type: BLOOD SPECIMEN Ordering Facility: [facility] Address: [address] [place] [address] Performed By: #### 2 4323-8 #### [facility] CLIA [id number] [address] [place] [address] [place] CO2 [Moles/Vol] 26 mmol/L Normal 22-[address] [facility] Comment on above: Order Comment: Speci men Type: BLOOD SPECIMEN Ordering Facility: [facility] Address: [address] [place] [address] Performed By: #### 2 4323-8 #### [facility] CLIA [id number] [address] [place] [address] [place] Creatinine [Mass/Vol] 2.05 mg/dL High 0.58-0.96 [facility] Comment on above: Order Comment: Lalo men Type: BLOOD SPECIMEN Ordering Facility: [facility] Address: [address] [place] [address] Performed By: #### 2 4323-8 #### [facility] CLIA [id number] [address] [place] [address] [place] Creatinine and Glomerular filtration rate.predicted panel (S/P/Bld) 23 mL/min/1.73m??? Low >=[address] [facility] Comment on above: Order Comment: Lalo mclaughlin Type: BLOOD SPECIMEN Ordering Facility: [facility] Address: [address] [place] [address] Result Comment: Melissa mated Glomerular Filtration Rate [...] GFR. Performed By: #### 2 4323-8 #### [facility] CLIA [id number] [address] [place] [address] [place] Glucose [Mass/Vol] 107 mg/dL High 74-99 [facility] Comment on above: Order Comment: Lalo mclaughlin Type: BLOOD SPECIMEN Ordering Facility: [facility] Address: [address] [place] [address] Result Comment: The [place] Diabetes Association (ADA) provides guidance for cutoff [...] Standards of Medical Care in Diabetes 2016, [place] [employer]. Diabetes Care. 2016.39(Suppl 1). Performed By: #### 2 4323-8 #### [facility] CLIA [id number] [address] [place] [address] [place] Potassium [Moles/Vol] 4.0 mmol/L Normal 3.7-5.1 [facility] Comment on above: Order Comment: Speci men Type: BLOOD SPECIMEN Ordering Facility: [facility] Address: [address] [place] [address] Performed By: #### 2 4323-8 #### [facility] CLIA [id number] [address] [place] [address] [place] Protein [Mass/Vol] 7.0 g/dL Normal 6.3-8.0 [facility] Comment on above: Order Comment: Venkati men Type: BLOOD SPECIMEN Ordering Facility: [facility] Address: [address] [place] [address] Performed By: #### 2 4323-8 #### [facility] CLIA [id number] [address] [place] [address] [place] Sodium [Moles/Vol] 144 mmol/L Normal 136-144 [facility] Comment on above: Order Comment: Speci men Type: BLOOD SPECIMEN Ordering Facility: [facility] Address: [address] [place] [address] Performed By: #### 2 4323-8 #### [facility] CLIA [id number] [address] [place] [id number] [place] Urea nitrogen [Mass/Vol] 30 mg/dL High 7-[address] [facility] Comment on above: Order Comment: Speci men Type: BLOOD SPECIMEN Ordering Facility: [facility] Address: [address] [place] [address] Performed By: #### 2 4323-8 #### [facility] CLIA [id number] [address] [facility] [address] [address] [place] ECG COMPLETEon 09-23-2023 ECG COMPLETE Ventricular Rate : 7 5 BPM Atrial Rate : 75 BPM QRS Duration : 108 ms Q-T Interval : 410 ms QTC Calculation(Bazett) : 457 ms Calculated R [place] : -32 degrees Calculated T [place] : 97 degrees 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 , 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 HISTORY PHYSICALon HISTORY PHYSICAL HNO ID: [id number] Author: Ulises Ocampo APRN.PHYSICAL THERAPIST, DNP Service: ? Author Type: Nurse Practitioner [...] 35 kg/m2 Non-male patient STOP-Bang Score: 1 [id number] Score: Hypertension history: Yes [id number] Score: 1 ARISCAT Score: Age: >80 Preoperative [...] fevers. Neurological: No history of TIA's, stroke, [employer] tumor, impaired sensorium, hemiplegia, paraplegia or quadraplegia. No neurological symptoms or problems. Respiratory: No history of current cough or dyspnea, or pneumonia in the past 6 weeks. No history of respiratory/pulmonary symptoms or problems. Cardiovascular: Positive for: hypertension (on rx) Negative for: abdominal aortic (more content not included)... Normal [facility] TYPE AND SCREEN,30 DAYon ABO A Normal [facility] Comment on above: Order Comment: Speci men Type: BLOOD SPECIMEN Ordering Facility: [facility] Address: [address] [place] [address] Performed By: #### T SCR30 #### [facility] CLIA [id number] [address] [place] [address] [place] HISTORICAL AB SCR STATUS Negative Normal [facility] Comment on above: Order Comment: Speci men Type: BLOOD SPECIMEN Ordering Facility: [facility] Address: [address] [place] [address] Performed By: #### T SCR30 #### [facility] CLIA [id number] [address] [place] [address] [place] Rh Nom (Bld) Positive Normal [facility] Comment on above: Order Comment: Speci men Type: BLOOD SPECIMEN Ordering Facility: [facility] Address: [address] [place] [address] Performed By: #### T SCR30 #### [facility] CLIA [id number] [address] [place] [address] [place] Consultation Noteon 09-12-20 23 Consultation Note [id number]#[id number] 0TIFF Normal [facility] Bacteria Ur Culton 3 Bacteria identified Cx Nom (U) CULTURE, URINE: No growth (<1,000 CFU/ml) Normal [facility] Comment on above: Performed By: #### 6 30-4 #### [facility] CLIA [id number] [address] [place] [address] [place] CNOVon 09-07-2023 CNOV Office Visit (UROLMN ) MEENU NOLAN ([id number]) 1935 F Date Time Provider Department 09/07/23 [...] hardly hear me. Though not listed in [facility], patient's daughter indicates Dr. Harsh Clayton recommended [...] based on size, location, hounsfield units and yuno-xk-jurqq distance: 0% 3. Ureteroscopy - risks of [...] with more than 50% of the total fyxl-us-lltb time of the visit devoted to patient counseling/coordinatio n of care. Ricco Garland MD, FACS Director, [facility], [facility] [place] [employer] property [employer], [employer] Pager [phone] 09/07/2023 Referring Provider: SELF [200] Allergies As of Date: 09/07/2023 (No Known Allergies) Date Reviewed: 09/07/2023 Reviewed by: Karen Calvillo OCCA - Fully Assessed Primary Visit Diagnosis:Staghorn calculus [N20.0] Other Visit Diagnoses:Abnormal urinalysis [R82.90] History of recurrent UTIs [Z87.440] Essential hypertension [I10] Constipation, unspecified constipation type [K59.00] Arthritis [M19.90] Status post hip surgery [Z98.890] Order(s):URINE CULTURE [SQURCUL] Order #: [id number]. #:[id number] estradiol (ESTRACE) 0.01 % (0.1 mg/gram) vaginal creamUse 1 g vaginally one time a week.Disp: 42 gRfl: 1 Prescriptions (more content not included)... Normal [facility] URINALYSIS, REFLEX MICROSCOP ICon 09-07-2023 Bacteria LM.HPF (Urine sed) [#/Area] Few Abnormal None Seen [facility] Comment on above: Order Comment: Speci men Type: URINE SPECIMEN Ordering Facility: [facility] Address: [address] [place] [address] Performed By: #### L [id number] #### [facility] CLIA [id number] [address] [place] [address] [place] Bilirubin Ql (U) Negative Normal Negative [facility] Comment on above: Order Comment: Speci men Type: URINE SPECIMEN Ordering Facility: [facility] Address: [address] [place] [address] Performed By: #### L [id number] #### [facility] CLIA [id number] [address] [place] [address] [place] Clarity (Unsp spec) Clear Normal Clear [facility] Comment on above: Order Comment: Speci men Type: URINE SPECIMEN Ordering Facility: [facility] Address: [address] [place] [address] Performed By: #### L [id number] #### [facility] CLIA [id number] [address] [place] [address] [place] Color (U) Light Yellow Normal Yellow [facility] Comment on above: Order Comment: Speci men Type: URINE SPECIMEN Ordering Facility: [facility] Address: [address] [place] [address] Performed By: #### L [id number] #### [facility] CLIA [id number] [address] [place] [address] [place] Epithelial cells LM.HPF (Urine sed) [#/Area] Few Normal [facility] Comment on above: Order Comment: Speci men Type: URINE SPECIMEN Ordering Facility: [facility] Address: [address] [place] [address] Performed By: #### L [id number] #### [facility] CLIA [id number] [address] [place] [address] [place] Glucose Test strip (U) [Mass/Vol] Negative Normal Trace, Negative [facility] Comment on above: Order Comment: Speci men Type: URINE SPECIMEN Ordering Facility: [facility] Address: [address] [place] [address] Performed By: #### L [id number] #### [facility] CLIA [id number] [address] [place] [address] [place] Hemoglobin Ql (U) Negative Normal Negative, Trace [facility] Comment on above: Order Comment: Speci men Type: URINE SPECIMEN Ordering Facility: [facility] Address: [address] [place] [address] Performed By: #### L [id number] #### [facility] CLIA [id number] [address] [place] [address] [place] Hyaline casts (Urine sed) [#/Area] 1-3 /LPF Abnormal 0 /LPF [facility] Comment on above: Order Comment: Speci men Type: URINE SPECIMEN Ordering Facility: [facility] Address: [address] [place] [address] Performed By: #### L [id number] #### [facility] CLIA [id number] [address] [place] [address] [place] Ketones Ql (U) Negative Normal Negative, Trace [facility] Comment on above: Order Comment: Speci men Type: URINE SPECIMEN Ordering Facility: [facility] Address: [address] [place] [address] Performed By: #### L [id number] #### [facility] CLIA [id number] [address] [place] [address] [place] Leukocyte esterase Test strip Ql (U) 500 Dorian/uL Abnormal Negative, 25 Dorian/uL [facility] Comment on above: Order Comment: Speci men Type: URINE SPECIMEN Ordering Facility: [facility] Address: [address] [place] [address] Performed By: #### L [id number] #### [facility] CLIA [id number] [address] [place] [address] [place] Nitrite Ql (U) Negative Normal Negative [facility] Comment on above: Order Comment: Speci men Type: URINE SPECIMEN Ordering Facility: [facility] Address: [address] [place] [address] Performed By: #### L [id number] #### [facility] CLIA [id number] [address] [place] [address] [place] pH (U) 5.5 [pH] Normal 5.0-8.[address] [facility] Comment on above: Order Comment: Speci men Type: URINE SPECIMEN Ordering Facility: [facility] Address: [address] [place] [address] Performed By: #### L [id number] #### [facility] CLIA [id number] [address] [place] [address] [place] Protein (U) [Mass/Vol] Trace Normal Trace , Negative [facility] Comment on above: Order Comment: Speci men Type: URINE SPECIMEN Ordering Facility: [facility] Address: [address] [place] [address] Performed By: #### L [id number] #### [facility] CLIA [id number] [address] [place] [address] [place] RBC LM.HPF (Urine sed) [#/Area] 3-5 /HPF Abnormal 0-3 /HPF [facility] Comment on above: Order Comment: Speci men Type: URINE SPECIMEN Ordering Facility: [facility] Address: [address] [place] [address] Performed By: #### L [id number] #### [facility] CLIA [id number] [address] [place] [address] [place] Specific gravity (U) [Rel density] 1.014 Normal 1.005-1.[address] [facility] Comment on above: Order Comment: Speci men Type: URINE SPECIMEN Ordering Facility: [facility] Address: [address] [place] [address] Performed By: #### L [id number] #### [facility] CLIA [id number] [address] [place] [address] [place] Urobilinogen Ql (U) Negative Normal Negative [facility] Comment on above: Order Comment: Speci men Type: URINE SPECIMEN Ordering Facility: [facility] Address: [address] [place] [address] Performed By: #### L [id number] #### [facility] CLIA [id number] [address] [place] [address] [place] WBC LM.HPF (Urine sed) [#/Area] /[HPF] Abnormal 0-5 /HPF [facility] Comment on above: Order Comment: Speci men Type: URINE SPECIMEN Ordering Facility: [facility] Address: [address] [place] [address] Performed By: #### L [id number] #### [facility] CLIA [id number] [address] [place] [address] [place] Consultation Noteon 09-06-20 Consultation Note [id number]#1.0 0TIFF Normal [facility] Consultation Noteon 09-03-20 Consultation Note [id number]#1.0 0TIFF Normal [facility] Lab Reportson 09-03-2023 Lab Reports [id number]#1.0 0TIFF Normal [facility] Basic Metabolic Panelon Anion gap [Moles/Vol] 11.2 mmol/L Normal 6.0-15.0 [facility] Comment on above: Performed By: #### EDITA Warren, CBCNO ####[facility] [address] [place] [address] [facility] Calcium [Mass/Vol] 8.0 mg/dL Low 8.6-10.3 [facility] Comment on above: Performed By: #### EDITA Warren, CBCNO ####[facility] [address] [place] [address] [facility] Chloride [Moles/Vol] 110 mmol/L High 98-107 [facility] Comment on above: Performed By: #### EDITA Warren, CBCNO ####[facility] [address] [place] [address] [facility] CO2 [Moles/Vol] 25.2 mmol/L Normal 21.0-31.0 [facility] Comment on above: Performed By: #### EDITA Warren, CBCNO ####[facility] [address] [place] [address] [facility] Creatinine [Mass/Vol] 2.30 mg/dL High 0.60-1.20 [facility] Comment on above: Performed By: #### EDITA Warren, CBCNO ####[facility] [id number] [place] [address] [place] Creatinine Clr Calc Pharmacy 14.54 [facility] Comment on above: Performed By: #### EDITA Warren, CBCNO ####[facility] [address] [place] [address] [place] GFR/1.73 sq M.predicted MDRD (S/P/Bld) [Vol rate/Area] 20.194 mL/min/{1.73_m2} Normal [facility] Comment on above: Performed By: #### EDITA Warren, CBCNO ####[place] [address] [place] [address] [facility] Glucose [Mass/Vol] 109 mg/dL High 70-100 [facility] Comment on above: Result Comment: Regan Glucose Reference Range is dependent on time and content of last meal. Glucose of more than 200 mg/dL in a nonstressed, ambulatory subject supports the diagnosis of Diabetes Mellitus. ADA recommended reference range Performed By: #### M EDITA Padgett, CBCNO ####[place] [address] [place] [address]70 [facility] Potassium [Moles/Vol] 4.4 mmol/L Normal 3.5-5.1 [facility] Comment on above: Performed By: #### EDITA Warren, CBCNO ####[place] [id number] [facility] Sodium [Moles/Vol] 142 mmol/L Normal 136-145 [facility] Comment on above: Performed By: #### EDITA Warren, CBCNO ####[place] [id number] [facility] Urea nitrogen [Mass/Vol] 31 mg/dL High 7-25 [facility] Comment on above: Performed By: #### EDITA Warren, CBCNO ####[place] [id number] [facility] Hemogram CBC Without Diffon 09-02-2023 Erythrocyte distribution width (RBC) [Ratio] 14.1 % Normal 11.9-15.3 [facility] Comment on above: Performed By: #### EDITA Warren, CBCNO ####[place] [id number] [facility] Hematocrit (Bld) [Volume fraction] 32.6 % Low 34.0-46.4 [facility] Comment on above: Performed By: #### EDITA Warren, CBCNO ####[place] [id number] [facility] Hemoglobin (Bld) [Mass/Vol] 10.9 g/dL Low 11.8-15.4 [facility] Comment on above: Performed By: #### EDITA Warren CBCNO ####[place] [address] MCH (RBC) [Entitic mass] 31.6 pg Normal 24.7-34.3 [facility] Comment on above: Performed By: #### EDITA Warren CBCNO ####[place] [address] MCV (RBC) [Entitic vol] 94.7 fL Normal 80-100 F [facility] Comment on above: Performed By: #### EDITA Warren CBCNO ####[address] Mean Corpuscular HGB Conc 33.4 g/dL Normal 32.0-35.0 [facility] Comment on above: Performed By: #### EDITA Warren CBCNO ####[address] Platelet mean volume (Bld) [Entitic vol] 8.8 fL Normal 6.3-10.7 [facility] Comment on above: Result Comment: PERF ORMED BY: [facility] [address] [place] [address] PATHOLOGIST OFFICE EQUIPMENT TECHNICIAN BARBARA MUNOZ M.D. Performed By: #### EDITA Warren CBCNO ####[address] Platelets (Bld) [#/Vol] 192 10*3/uL Normal 150-450 [facility] Comment on above: Performed By: #### EDITA Warren CBCNO ####[place] [id number] [facility] RBC (Bld) [#/Vol] 3.44 10*6/uL Low 3.60-5.00 [facility] Comment on above: Performed By: #### EDITA Warren CBCNO ####[address] [place] [address] [facility] WBC (Bld) [#/Vol] 7.8 10*3/uL Normal 3.8-11.6 [facility] Comment on above: Performed By: #### M G, BMP, CBCNO ####[address] [address] [facility] Magnesiumon 09-02-2023 Magnesium [Mass/Vol] 2.5 mg/dL Normal 1.9-2.7 [facility] Comment on above: Result Comment: PERF ORMED BY: [facility] [address] [id number] PATHOLOGIST OFFICE EQUIPMENT TECHNICIAN BARBARA MUNOZ M.D. Performed By: #### M Lorin, BMP, CBCNO ####[place] [id number] [facility] Ammoniaon 09-01-2023 Ammonia (P) [Moles/Vol] 23 umol/L Normal 11-35 [facility] Comment on above: Result Comment: PERF ORMED BY: [facility] [address] [place] [id number] PATHOLOGIST OFFICE EQUIPMENT TECHNICIAN BARBARA MUNOZ M.D. Performed By: #### A MM ####[place] [id number] [facility] Basic Metabolic Panelon 12-0 Anion gap [Moles/Vol] 11.9 mmol/L Normal 6.0-15.0 [facility] Comment on above: Performed By: #### V [id number], MG, CBC, BMP, TSH3 ####[address] [address] [facility] Calcium [Mass/Vol] 8.4 mg/dL Low 8.6-10.3 [facility] Comment on above: Performed By: #### V [id number], MG, CBC, BMP, TSH3 ####[address] [address] [facility] Chloride [Moles/Vol] 111 mmol/L High 98-107 [facility] Comment on above: Performed By: #### V [id number], MG, CBC, BMP, TSH3 ####[place] [address] [place] [address]70 [facility] CO2 [Moles/Vol] 23.2 mmol/L Normal 21.0-31.0 [facility] Comment on above: Performed By: #### V [id number], MG, CBC, BMP, TSH3 ####[place] [id number] [facility] Creatinine [Mass/Vol] 2.45 mg/dL High 0.60-1.20 [facility] Comment on above: Performed By: #### V [id number], MG, CBC, BMP, TSH3 ####[address] Creatinine Clr Calc Pharmacy 13.65 [facility] Comment on above: Performed By: #### V [id number], MG, CBC, BMP, TSH3 ####[place] [id number] [facility] GFR/1.73 sq M.predicted MDRD (S/P/Bld) [Vol rate/Area] 18.720 mL/min/{1.73_m2} [facility] Comment on above: Performed By: #### V [id number], MG, CBC, BMP, TSH3 ####[address] Glucose [Mass/Vol] 90 mg/dL Normal 70-100 [facility] Comment on above: Result Comment: Regan Glucose Reference Range is dependent on time and content of last meal. Glucose of more than 200 mg/dL in a nonstressed, ambulatory subject supports the diagnosis of Diabetes Mellitus. ADA recommended reference range Performed By: #### V [id number], MG, CBC, BMP, TSH3 ####[place] [id number] [facility] Potassium [Moles/Vol] 4.1 mmol/L Normal 3.5-5.1 [facility] Comment on above: Performed By: #### V [id number], MG, CBC, BMP, TSH3 ####[facility] [address] [place] [address] [facility] Sodium [Moles/Vol] 142 mmol/L Normal 136-145 [facility] Comment on above: Performed By: #### V [id number], MG, CBC, BMP, TSH3 ####[facility] [address] [place] [address] [facility] Urea nitrogen [Mass/Vol] 28 mg/dL High 7-25 [facility] Comment on above: Performed By: #### V [id number], MG, CBC, BMP, TSH3 ####[place] [address] [place] [address] [facility] Blood Cultureon 09-01-2023 Bacteria identified Cx Nom (Bld) PT IS BEING MEDICATED NO GROWTH 5 DAYS PERFORMED BY: [place] [address] PATHOLOGIST OFFICE EQUIPMENT TECHNICIAN BARBARA MUNOZ M.D. [facility] Comment on above: Performed By: #### L SARANYA FUNESLD #### [facility] [address] [place] [address] Bacteria identified Cx Nom (Bld) PT IS BEING MEDICATED NO GROWTH 5 DAYS PERFORMED BY: [place] [address] PATHOLOGIST OFFICE EQUIPMENT TECHNICIAN BARBARA MUNOZ M.D. [facility] Comment on above: Performed By: #### L JUVENAL FUNES #### [facility] [address] [place] [address] CT abdomen pelvis wo conon 1 11-02-2022 CT abdomen pelvis wo [facility] [place] [address] [place] [address] CT Scan Report Signed Patient: Meenu Nolan MR#: [id number] [birth year] : 1935 Acct:[id number] Age/Sex: 88 / F ADM Date: 08/31/23 Loc: Room: [address] [place] [address] Type: ADM IN Attending Dr: Riky Bundy [...] Isabel Vega M.D.09/01/2023 6:29 AM Dictation Location: [place] [address] Transcribed By: [facility] 09/01/23 0629 Dictated By: Isabel Vega MD 09/01/23622 Signed By: 09/01/23628 [facility] CT head/brain wo conon 09-01 CT head/brain wo con [facility] [place] [address] [place] [address] CT Scan Report Signed Patient: Meenu Nolan MR#: [id number] 36 : 1935 Acct:[id number] Age/Sex: 88 / F ADM Date: 08/31/23 Loc: Room: [address] [place] [address] Type: ADM IN Attending Dr: Riky Bundy MD Copies to: MD Riyk Fox MD Ordering Provider: Destiny Irwin MD [...] Isabel Vega M.D.09/01/2023 6:14 AM Dictation Location: [place] [address] Transcribed By: [facility] 09/01/23613 Dictated By: Isabel Vega MD 09/01/23611 Signed By: 09/01/23613 [facility] Complete Blood Count Auto Di ffon 09-01-2023 Basophils (Bld) [#/Vol] 0.0 10*3/uL Normal 0.0-0.2 [facility] Comment on above: Result Comment: PERF ORMED BY: [facility] [address] [place] [address] PATHOLOGIST OFFICE EQUIPMENT TECHNICIAN BARBARA MUNOZ M.D. Performed By: #### V [id number], MG, CBC, BMP, TSH3 ####[address] Basophils/100 WBC (Bld) 0.3 % Normal . F [facility] Comment on above: Performed By: #### V [id number], MG, CBC, BMP, TSH3 ####[address] Eosinophils (Bld) [#/Vol] 0.1 10*3/uL Normal 0.0-0.45 [facility] Comment on above: Performed By: #### V [id number], MG, CBC, BMP, TSH3 ####[address] Eosinophils/100 WBC (Bld) 1.6 % Normal . [facility] Comment on above: Performed By: #### V [id number], MG, CBC, BMP, TSH3 ####[address] Erythrocyte distribution width (RBC) [Ratio] 14.0 % Normal 11.9-15.3 [facility] Comment on above: Performed By: #### V [id number], MG, CBC, BMP, TSH3 ####[address] Hematocrit (Bld) [Volume fraction] 35.9 % Normal 34.0-46.4 [facility] Comment on above: Performed By: #### V [id number], MG, CBC, BMP, TSH3 ####[address] Hemoglobin (Bld) [Mass/Vol] 11.9 g/dL Normal 11.8-15.4 [facility] Comment on above: Performed By: #### V [id number], MG, CBC, BMP, TSH3 ####[address] Lymphocytes (Bld) [#/Vol] 1.5 10*3/uL Normal 1.00-4.8 [facility] Comment on above: Performed By: #### V [id number], MG, CBC, BMP, TSH3 ####[address] Lymphocytes/100 WBC (Bld) 19.5 % Normal . [facility] Comment on above: Performed By: #### V [id number], MG, CBC, BMP, TSH3 ####[address] MCH (RBC) [Entitic mass] 31.2 pg Normal 24.7-34.3 [facility] Comment on above: Performed By: #### V [id number], MG, CBC, BMP, TSH3 ####[address] MCV (RBC) [Entitic vol] 94.6 fL Normal 80-100 F [facility] Comment on above: Performed By: #### V [id number], MG, CBC, BMP, TSH3 ####[address] Mean Corpuscular HGB Conc 33.0 g/dL Normal 32.0-35.0 [facility] Comment on above: Performed By: #### V [id number], MG, CBC, BMP, TSH3 ####[address] Monocytes (Bld) [#/Vol] 1.0 10*3/uL High 0.0-0.8 [facility] Comment on above: Performed By: #### V [id number], MG, CBC, BMP, TSH3 ####[address] Monocytes/100 WBC (Bld) 12.4 % Normal . F [facility] Comment on above: Performed By: #### V [id number], MG, CBC, BMP, TSH3 ####[address] Neutrophils (Bld) [#/Vol] 5.2 10*3/uL Normal 1.8-7.7 [facility] Comment on above: Performed By: #### V [id number], MG, CBC, BMP, TSH3 ####[address] Neutrophils/100 WBC (Bld) 66.2 % Normal . [facility] Comment on above: Performed By: #### V [id number], MG, CBC, BMP, TSH3 ####[address] NRBC% 0.0 /100{WBC} Normal 0-0.5 [facility] Comment on above: Performed By: #### V [id number], MG, CBC, BMP, TSH3 ####[address] Platelet mean volume (Bld) [Entitic vol] 8.2 fL Normal 6.3-10.7 [facility] Comment on above: Performed By: #### V [id number], MG, CBC, BMP, TSH3 ####[address] Platelets (Bld) [#/Vol] 216 10*3/uL Normal 150-450 [facility] Comment on above: Performed By: #### V [id number], MG, CBC, BMP, TSH3 ####[address] RBC (Bld) [#/Vol] 3.80 10*6/uL Normal 3.60-5.00 [facility] Comment on above: Performed By: #### V [id number], MG, CBC, BMP, TSH3 ####[address] WBC (Bld) [#/Vol] 7.8 10*3/uL Normal 3.8-11.6 [facility] Comment on above: Performed By: #### V [id number], MG, CBC, BMP, TSH3 ####[facility] [address] Consultation Noteon 09-01-20 Consultation Note [id number]#1.0 0TIFF Normal [facility] Dipstick and Microscopicon 1 11-02-2022 Appearance (U) Cloudy Critically abnormal Clear [facility] Comment on above: Order Comment: Name Collection Type:: Voided Performed By: #### C UU, ADDONUAPLUS #### [facility] [address] [place] [address] Bacteria,Urine None Seen Normal None Seen [facility] Comment on above: Order Comment: Name Collection Type:: Voided Result Comment: PERF ORMED BY: [place] [address] PATHOLOGIST OFFICE EQUIPMENT TECHNICIAN BARBARA MUNOZ M.D. Performed By: #### C UU, ADDONUAPLUS #### [facility] [address] [place] [address] Bilirubin,Urine Negative Normal Negative [facility] Comment on above: Order Comment: Name Collection Type:: Voided Performed By: #### C UU, ADDONUAPLUS #### [facility] [address] [place] [address] Color (U) Yellow Normal Yellow [facility] Comment on above: Order Comment: Name Collection Type:: Voided Performed By: #### C UU, ADDONUAPLUS #### [facility] [address] [place] [address] Glucose Ql (U) Normal Normal Normal [facility] Comment on above: Order Comment: Name Collection Type:: Voided Performed By: #### C UU, ADDONUAPLUS #### [facility] [address] [place] [address] [place] Ketones Ql (U) Negative Normal Negative [facility] Comment on above: Order Comment: Name Collection Type:: Voided Performed By: #### C UU, ADDONUAPLUS #### [address] Leukocyte esterase Test strip Ql (U) 4+ High Negative [facility] Comment on above: Order Comment: Name Collection Type:: Voided Performed By: #### C UU, ADDONUAPLUS #### [address] Nitrite,Urine Negative Normal Negative [facility] Comment on above: Order Comment: Name Collection Type:: Voided Performed By: #### C UU, ADDONUAPLUS #### [address] Occult Blood,Urine Trace High Negative [facility] Comment on above: Order Comment: Name Collection Type:: Voided Result Comment: PERF ORMED BY: [place] [address] PATHOLOGIST OFFICE EQUIPMENT TECHNICIAN BARBARA MUNOZ M.D. Performed By: #### C UU, ADDONUAPLUS #### [address] pH (U) 6.0 [pH] Normal 5.0-9.0 [facility] Comment on above: Order Comment: Name Collection Type:: Voided Performed By: #### C UU, ADDONUAPLUS #### [place] [address] [place] Protein (U) [Mass/Vol] 30 mg/dL High Negative [facility] Comment on above: Order Comment: Name Collection Type:: Voided Performed By: #### C UU, ADDONUAPLUS #### [address] RBC,Urine 1-2 Normal 0-4 [facility] Comment on above: Order Comment: Name Collection Type:: Voided Performed By: #### C UU, ADDONUAPLUS #### [place] [address] [place] Specificy [place],Urine 1.016 Normal 1.001-1.030 [facility] Comment on above: Order Comment: Name Collection Type:: Voided Performed By: #### C UU, ADDONUAPLUS #### [facility] [address] Squamous Epithelial Cell,Urine 3-4 High 0-2 [facility] Comment on above: Order Comment: Name Collection Type:: Voided Performed By: #### C UU, ADDONUAPLUS #### [address] Urobilinogen,Urine Normal Normal Normal [facility] Comment on above: Order Comment: Name Collection Type:: Voided Performed By: #### C UU, ADDONUAPLUS #### [address] WBC,Urine 50-100 High 0-4 [facility] Comment on above: Order Comment: Name Collection Type:: Voided Performed By: #### C UU, ADDONUAPLUS #### [address] Lactic Acidon 09-01-2023 Lactate [Moles/Vol] 0.8 mmol/L Normal 0.5-2.2 [facility] Comment on above: Order Comment: PT IS BEING MEDICATED Result Comment: PERF ORMED BY: [address] [place] [address] PATHOLOGIST OFFICE EQUIPMENT TECHNICIAN BARBARA MUNOZ M.D. Performed By: #### L ACTIC, CUBLD #### [facility] [address] [place] [address] Magnesiumon 09-01-2023 Magnesium [Mass/Vol] 2.2 mg/dL Normal 1.9-2.7 [facility] Comment on above: Performed By: #### V [id number], MG, CBC, BMP, TSH3 ####[facility] [id number] [address] Thyroid Stimulating Hormoneo n 09-01-2023 TSH Qn 1.90 m[IU]/L Normal 0.45-5.33 [facility] Comment on above: Result Comment: PERF ORMED BY: [place] [address] PATHOLOGIST OFFICE EQUIPMENT TECHNICIAN BARBARA MUNOZ M.D. Performed By: #### V [id number], MG, CBC, BMP, TSH3 ####[facility] [id number] [place] [address] Troponin I High Sensitivityo n 09-01-2023 Troponin I High Sensitivity 33.3 pg/mL High 0.0-15.0 [facility] Comment on above: Result Comment: PERF ORMED BY: [place] [address] PATHOLOGIST OFFICE EQUIPMENT TECHNICIAN BARBARA MUNOZ M.D. Performed By: #### H S TROP #### [facility] [address] [place] [address] Urine Cultureon 09-01-2023 Bacteria identified Cx Nom (U) 75,000 colonies/ml mixed bacterial skin contaminants 2 Days PERFORMED BY: [place] [address] PATHOLOGIST OFFICE EQUIPMENT TECHNICIAN BARBARA MUNOZ M.D. [facility] Comment on above: Performed By: #### C UU, ADDONUAPLUS #### [facility] [address] [place] [address] Vit. B12/Folate Profileon Cobalamin (Vitamin B12) [Mass/Vol] 465 pg/mL Normal 180-914 [facility] Comment on above: Performed By: #### V [id number], MG, CBC, BMP, TSH3 ####[address] Folate 41.0 ng/mL Normal >5.9 [facility] Comment on above: Result Comment: Danielle te reference range: >5.9 ng/ml The WHO technical consultation on folate and vitamin b12 deficiencies has determined that folate concentrations less than 4 ng/ml are considered deficient. Performed By: #### V [id number], MG, CBC, BMP, TSH3 ####[facility] [id number] [place] [id number] [place] XR chest 2V*on 09-01-2023 XR chest 2V* [facility] [address] [place] [address] XRay Report Signed Patient: Meenu Nolan MR#: [id number] [birth year] : 1935 Acct:[id number] Age/Sex: 88 / F ADM Date: 08/31/23 Loc: Room: [address] [place] [address] Type: ADM IN Attending Dr: Riky Bundy [...] Isabel Vega M.D.09/01/2023 6:23 AM Dictation Location: [place] [address] Transcribed By: [facility] 09/01/23622 Dictated By: Isabel Vega MD 09/01/23621 Signed By: 09/01/23622 Normal [facility] Alanine aminotransferase [En zymatic activity/volume] in Serum or PlasmaOrdered By: Destiny Irwin on 08-31-2023 ALT [Catalytic activity/Vol] 29 U/L 7-52 [facility] Albumin [Mass/volume] in Ser um or Plasma by Bromocresol green (BCG) dye binding methoOrdered By: Destiny Irwin on 08-31-2023 Albumin BCG dye [Mass/Vol] 4.7 g/dL 3.5-5.7 [facility] Alkaline phosphatase [Enzyma tic activity/volume] in Serum or PlasmaOrdered By: Destiny Irwin on 08-31-2023 ALP [Catalytic activity/Vol] 101 U/L 34-104 [facility] Aspartate aminotransferase [ Enzymatic activity/volume] in Serum or PlasmaOrdered By: Destiny Irwin on 08-31-2023 AST [Catalytic activity/Vol] 29 U/L 13-39 [facility] Automated erythrocytes count in urine sediment (number/area)Ordered By: Destiny Irwin on 08-31-2023 RBC Auto (Urine sed) [#/Area] 1-2 [HPF] 0-4 [facility] Automated leukocytes count i n urine sediment (number/area)Ordered By: Destiny Irwin on 08-31-2023 WBC Auto (Urine sed) [#/Area] 50-100 [HPF] 0-4 [facility] Basic Metabolic Panelon Anion gap [Moles/Vol] 16.9 mmol/L High 6.0-15.0 [facility] Comment on above: Performed By: #### B MP, HEPATIC, CBC, LIPASE ####[facility] [id number] [place] [id number] [facility] Calcium [Mass/Vol] 9.5 mg/dL Normal 8.6-10.3 [facility] Comment on above: Performed By: #### B MP, HEPATIC, CBC, LIPASE ####[facility] [place] [address] [facility] Chloride [Moles/Vol] 103 mmol/L Normal 98-107 [facility] Comment on above: Performed By: #### B MP, HEPATIC, CBC, LIPASE ####[facility] [id number] [place] [address] [facility] CO2 [Moles/Vol] 23.7 mmol/L Normal 21.0-31.0 [facility] Comment on above: Performed By: #### B MP, HEPATIC, CBC, LIPASE ####[facility] [id number] [place] [address] [facility] Creatinine [Mass/Vol] 2.74 mg/dL High 0.60-1.20 [facility] Comment on above: Performed By: #### B MP, HEPATIC, CBC, LIPASE ####[facility] [id number] [place] [address] [facility] Creatinine Clr Calc Pharmacy 12.25 [facility] Comment on above: Performed By: #### B MP, HEPATIC, CBC, LIPASE ####[place] [address] [place] [id number] [facility] GFR/1.73 sq M.predicted MDRD (S/P/Bld) [Vol rate/Area] 16.368 mL/min/{1.73_m2} [facility] Comment on above: Performed By: #### B MP, HEPATIC, CBC, LIPASE ####[place] [address] Glucose [Mass/Vol] 132 mg/dL High 70-100 [facility] Comment on above: Result Comment: [facility] Glucose Reference Range is dependent on time and content of last meal. Glucose of more than 200 mg/dL in a nonstressed, ambulatory subject supports the diagnosis of Diabetes Mellitus. ADA recommended reference range Performed By: #### B MP, HEPATIC, CBC, LIPASE ####[place] [address] [place] [address] [facility] Potassium [Moles/Vol] 4.6 mmol/L Normal 3.5-5.1 [facility] Comment on above: Performed By: #### B MP, HEPATIC, CBC, LIPASE ####[place] [address] [place] [id number] [facility] Sodium [Moles/Vol] 139 mmol/L Normal 136-145 [facility] Comment on above: Performed By: #### B MP, HEPATIC, CBC, LIPASE ####[place] [address] [place] [address] [facility] Urea nitrogen [Mass/Vol] 30 mg/dL High 7-25 [facility] Comment on above: Performed By: #### B MP, HEPATIC, CBC, LIPASE ####[place] [address] [place] [id number] [facility] Basophils Auto (Bld) [#/Vol] Ordered By: Destiny Irwin on 08-31-2023 Basophils (Bld) [#/Vol] 0.1 10*3/uL 0.0-0.2 [facility] Basophils/100 WBC Auto (Bld) Ordered By: Destiny Irwin on 08-31-2023 Basophils/100 WBC (Bld) 0.6 % . F [facility] Bilirubin Test strip Ql (U)O rdered By: Destiny Irwin on 08-31-2023 Bilirubin Ql (U) Negative Negative [facility] Bilirubin.direct [Mass/volum e] in Serum or PlasmaOrdered By: Destiny Irwin on 08-31-2023 Bilirubin.direct [Mass/Vol] 0.10 mg/dL 0.03-0.18 [facility] Bilirubin.total [Mass/volume ] in Serum or PlasmaOrdered By: Destiny Irwin on 08-31-2023 Bilirubin [Mass/Vol] 0.5 mg/dL 0.3-1.0 [facility] Calcium [Mass/volume] in Ser um or PlasmaOrdered By: Destiny Irwin on 08-31-2023 Calcium [Mass/Vol] 9.5 mg/dL 8.6-10.3 [facility] Carbon dioxide, total [Moles /volume] in Serum or PlasmaOrdered By: Destiny Irwin on 08-31-2023 CO2 [Moles/Vol] 23.7 mmol/L 21.0-31.0 [facility] Chloride [Moles/volume] in S shelley or PlasmaOrdered By: Destiny Irwin on 08-31-2023 Chloride [Moles/Vol] 103 mmol/L 98-107 [facility] Color Auto (U)Ordered By: Ashley Irwin on 08-31-2023 Color (U) Yellow Yellow [facility] Complete Blood Count Auto Di ffon 08-31-2023 Basophils (Bld) [#/Vol] 0.1 10*3/uL Normal 0.0-0.2 [facility] Comment on above: Result Comment: PERF ORMED BY: [facility] [address] [place] [address] PATHOLOGIST OFFICE EQUIPMENT TECHNICIAN BARBARA MUNOZ M.D. Performed By: #### B MP, HEPATIC, CBC, LIPASE ####[facility] Basophils/100 WBC (Bld) 0.6 % Normal . F [facility] Comment on above: Performed By: #### B MP, HEPATIC, CBC, LIPASE ####[address] Eosinophils (Bld) [#/Vol] 0.0 10*3/uL Normal 0.0-0.45 [facility] Comment on above: Performed By: #### B MP, HEPATIC, CBC, LIPASE ####[address] Eosinophils/100 WBC (Bld) 0.5 % Normal . [facility] Comment on above: Performed By: #### B MP, HEPATIC, CBC, LIPASE ####[address] Erythrocyte distribution width (RBC) [Ratio] 13.7 % Normal 11.9-15.3 [facility] Comment on above: Performed By: #### B MP, HEPATIC, CBC, LIPASE ####[address] Hematocrit (Bld) [Volume fraction] 40.5 % Normal 34.0-46.4 [facility] Comment on above: Performed By: #### B MP, HEPATIC, CBC, LIPASE ####[address] Hemoglobin (Bld) [Mass/Vol] 13.3 g/dL Normal 11.8-15.4 [facility] Comment on above: Performed By: #### B MP, HEPATIC, CBC, LIPASE ####[address] Lymphocytes (Bld) [#/Vol] 1.9 10*3/uL Normal 1.00-4.8 [facility] Comment on above: Performed By: #### B MP, HEPATIC, CBC, LIPASE ####[address] Lymphocytes/100 WBC (Bld) 20.5 % Normal . [facility] Comment on above: Performed By: #### B MP, HEPATIC, CBC, LIPASE ####[address] MCH (RBC) [Entitic mass] 31.5 pg Normal 24.7-34.3 [facility] Comment on above: Performed By: #### B MP, HEPATIC, CBC, LIPASE ####[address] MCV (RBC) [Entitic vol] 95.4 fL Normal 80-100 [facility] Comment on above: Performed By: #### B MP, HEPATIC, CBC, LIPASE ####[address] Mean Corpuscular HGB Conc 33.0 g/dL Normal 32.0-35.0 [facility] Comment on above: Performed By: #### B MP, HEPATIC, CBC, LIPASE ####[address] Monocytes (Bld) [#/Vol] 1.0 10*3/uL High 0.0-0.8 [facility] Comment on above: Performed By: #### B MP, HEPATIC, CBC, LIPASE ####[address] Monocytes/100 WBC (Bld) 18.57 % Normal 0.00-20.00 [facility] Comment on above: Performed By: #### B MP, HEPATIC, CBC, LIPASE ####[address] Monocytes/100 WBC (Bld) 10.6 % Normal . F [facility] Comment on above: Performed By: #### B MP, HEPATIC, CBC, LIPASE ####[address] Neutrophils (Bld) [#/Vol] 6.4 10*3/uL Normal 1.8-7.7 [facility] Comment on above: Performed By: #### B MP, HEPATIC, CBC, LIPASE ####[address] [place] [address] [place] Neutrophils/100 WBC (Bld) 67.8 % Normal . [facility] Comment on above: Performed By: #### B MP, HEPATIC, CBC, LIPASE ####[address] NRBC% 0.0 /100{WBC} Normal 0-0.5 [facility] Comment on above: Performed By: #### B MP, HEPATIC, CBC, LIPASE ####[address] Platelet mean volume (Bld) [Entitic vol] 8.4 fL Normal 6.3-10.7 [facility] Comment on above: Performed By: #### B MP, HEPATIC, CBC, LIPASE ####[address] Platelets (Bld) [#/Vol] 249 10*3/uL Normal 150-450 [facility] Comment on above: Performed By: #### B MP, HEPATIC, CBC, LIPASE ####[address] RBC (Bld) [#/Vol] 4.24 10*6/uL Normal 3.60-5.00 [facility] Comment on above: Performed By: #### B MP, HEPATIC, CBC, LIPASE ####[address] WBC (Bld) [#/Vol] 9.4 10*3/uL Normal 3.8-11.6 [facility] Comment on above: Performed By: #### B MP, HEPATIC, CBC, LIPASE ####[address] Creatinine [Mass/volume] in Serum or PlasmaOrdered By: Destiny Irwin on 08-31-2023 Creatinine [Mass/Vol] 2.74 mg/dL 0.60-1.20 [facility] D-Dimer High Sensitivityon 1 11-01-2022 D-Dimer High Sensitivity < 200 Normal 0-243 [facility] Comment on above: Result Comment: The [...] coagulation studies. Please contact the laboratory at [phone] for redraw instructions. PERFORMED BY: [place] [address] PATHOLOGIST OFFICE EQUIPMENT TECHNICIAN BARBARA MUNOZ M.D. Performed By: #### D DIMER #### [place] [id number] [facility] ECG 12 lead ECGon 08-31-2023 ECG 12 lead ECG [facility] [address] [place] [address] Electrocardiograph Report Signed Patient: Meenu Nolan MR#: [id number] 36 : 1935 Acct:[id number] Age/Sex: 88 / F ADM Date: 08/31/23 Loc: Room: [address] [place] [address] Type: ADM IN Attending Dr: Riky Bundy [...] anterior infarct Confirmed by Michael Marx DO ([id number]) on 09/01/2023 6:18:58 AM Referred By: Electronically Signed By:Michael Marx DO Transcribed By: MUS Signed By Michael Marx DO [id number] Normal [facility] Eosinophils Auto (Bld) [#/Vo l]Ordered By: Destiny Irwin on 08-31-2023 Eosinophils (Bld) [#/Vol] 0.0 10*3/uL 0.0-0.45 [facility] Eosinophils/100 WBC Auto (Bl d)Ordered By: Destiny Irwin on 08-31-2023 Eosinophils/100 WBC (Bld) 0.5 % . [facility] Erythrocyte distribution wid th Auto (RBC) [Ratio]Ordered By: Destiny Irwin on 08-31-2023 Erythrocyte distribution width (RBC) [Ratio] 13.7 % 11.9-15.3 [facility] Fibrin D-dimer [Presence] in Platelet poor plasma by Latex agglutinationOrdered By: Destiny Irwin on 08-31-2023 Fibrin D-dimer LA Ql (PPP) < 200 ng/mL 0-243 [facility] Comment on above: The reference range [...] coagulation studies. Please contact the laboratory at [phone] for redraw instructions. Globulin Calc (S) [Mass/Vol] Ordered By: Destiny Irwin on 08-31-2023 Globulin (S) [Mass/Vol] 3.3 g/dL [facility] Glucose [Mass/volume] in Ser um or PlasmaOrdered By: Destiny Irwin on 08-31-2023 Glucose [Mass/Vol] 132 mg/dL 70-100 [facility] Comment on above: ADA recommended refe rence rangeRandom Glucose Reference Range is dependent on time and content of last meal. Glucose of more than 200 mg/dL in a nonstressed, ambulatory subject supports the diagnosis of Diabetes Mellitus. Hematocrit Auto (Bld) [Volum e fraction]Ordered By: Destiny Irwin on 08-31-2023 Hematocrit (Bld) [Volume fraction] 40.5 % 34.0-46.4 [facility] Hemoglobin [Mass/volume] in BloodOrdered By: Destiny Irwin on 08-31-2023 Hemoglobin (Bld) [Mass/Vol] 13.3 g/dL 11.8-15.4 [facility] Hepatic Panelon 08-31-2023 Albumin [Mass/Vol] 4.7 g/dL Normal 3.5-5.7 [facility] Comment on above: Performed By: #### B MP, HEPATIC, CBC, LIPASE ####[address] Albumin/Globulin [Mass ratio] 1.4 {ratio} Normal [facility] Comment on above: Performed By: #### B MP, HEPATIC, CBC, LIPASE ####[place] [id number] [facility] ALP [Catalytic activity/Vol] 101 U/L Normal 34-104 [facility] Comment on above: Performed By: #### B MP, HEPATIC, CBC, LIPASE ####[place] [id number] [facility] ALT [Catalytic activity/Vol] 29 U/L Normal 7-52 [facility] Comment on above: Performed By: #### B MP, HEPATIC, CBC, LIPASE ####[place] [id number] [facility] AST [Catalytic activity/Vol] 29 U/L Normal 13-39 [facility] Comment on above: Performed By: #### B MP, HEPATIC, CBC, LIPASE ####[place] [id number] [facility] Bilirubin [Mass/Vol] 0.5 mg/dL Normal 0.3-1.0 [facility] Comment on above: Performed By: #### B MP, HEPATIC, CBC, LIPASE ####[place] [address] Bilirubin,Indirect 0.4 mg/dL Normal [facility] Comment on above: Performed By: #### B MP, HEPATIC, CBC, LIPASE ####[place] [address] Bilirubin.indirect [Mass/Vol] 0.10 mg/dL Normal 0.03-0.18 [facility] Comment on above: Performed By: #### B MP, HEPATIC, CBC, LIPASE ####[place] [address] Globulin (S) [Mass/Vol] 3.3 g/dL Normal F [facility] Comment on above: Performed By: #### B MP, HEPATIC, CBC, LIPASE ####[address] Protein [Mass/Vol] 8.0 g/dL Normal 6.4-8.9 [facility] Comment on above: Performed By: #### B MP, HEPATIC, CBC, LIPASE ####[address] Ketones Auto test strip (U) [Mass/Vol]Ordered By: Destiny Irwin on 08-31-2023 Ketones (U) [Mass/Vol] Negative Negative [facility] Leukocytes [#/volume] correc tavia for nucleated erythrocytes in Blood by Automated counOrdered By: Destiny Irwin on 08-31-2023 WBC corrected for nucl RBC Auto (Bld) [#/Vol] 9.4 10*3/uL 3.8-11.6 [facility] Lipaseon 08-31-2023 Lipase [Catalytic activity/Vol] 33.0 U/L Normal 11.0-82.0 [facility] Comment on above: Result Comment: PERF ORMED BY: [facility] [address] [place] [id number] PATHOLOGIST OFFICE EQUIPMENT TECHNICIAN BARBARA MUNOZ M.D. Performed By: #### B MP, HEPATIC, CBC, LIPASE ####[facility] [id number] [place] [id number] [facility] Lipase [Enzymatic activity/v olume] in Serum or PlasmaOrdered By: Destiny Irwin on 08-31-2023 Lipase [Catalytic activity/Vol] 33.0 U/L 11.0-82.0 [facility] Lymphocytes Auto (Bld) [#/Vo l]Ordered By: Destiny Irwin on 08-31-2023 Lymphocytes (Bld) [#/Vol] 1.9 10*3/uL 1.00-4.8 [facility] Lymphocytes/100 WBC Auto (Bl d)Ordered By: Destiny Irwin on 08-31-2023 Lymphocytes/100 WBC (Bld) 20.5 % . [facility] MCH Auto (RBC) [Entitic mass ]Ordered By: Destiny Irwin on 08-31-2023 MCH (RBC) [Entitic mass] 31.5 pg 24.7-34.3 [facility] MCHC Auto (RBC) [Mass/Vol]Or dered By: Destiny Irwin on 08-31-2023 MCHC (RBC) [Mass/Vol] 33.0 g/dL 32.0-35.[address] [facility] MCV Auto (RBC) [Entitic vol] Ordered By: Destiny Irwin on 08-31-2023 MCV (RBC) [Entitic vol] 95.4 fL 80-100 F [facility] Monocyte distribution width [Entitic volume] in Blood by AutomatedOrdered By: Destiny Irwin on 08-31-2023 Monocyte distribution width Auto (Bld) [Entitic vol] 18.57 % 0.00-20.00 [facility] Monocytes Auto (Bld) [#/Vol] Ordered By: Destiny Irwin on 08-31-2023 Monocytes (Bld) [#/Vol] 1.0 10*3/uL 0.0-0.8 [facility] Monocytes/100 WBC Auto (Bld) Ordered By: Destiny Irwin on 08-31-2023 Monocytes/100 WBC (Bld) 10.6 % . F [facility] Neutrophils Auto (Bld) [#/Vo l]Ordered By: Destiny Irwin on 08-31-2023 Neutrophils (Bld) [#/Vol] 6.4 10*3/uL 1.8-7.7 [facility] Neutrophils/100 WBC Auto (Bl d)Ordered By: Destiny Irwin on 08-31-2023 Neutrophils/100 WBC (Bld) 67.8 % . [facility] Nitrite Test strip Ql (U)Ord ered By: Destiny Irwin on 08-31-2023 Nitrite Ql (U) Negative Negative [facility] No Panel InformationOrdered By: Destiny Irwin on 08-31-2023 Estimated GFR (CKD-EPI) 16.368 mL/Min [facility] Creatinine Clearance (Chem 12.25 [facility] Nucleated erythrocytes [Pres ence] in Blood by Automated countOrdered By: Destiny Irwin on 08-31-2023 Nucleated RBC Auto Ql (Bld) 0.0 /100{WBC} 0-0.5 [facility] Platelet mean volume Auto (B ld) [Entitic vol]Ordered By: Destiny Irwin on 08-31-2023 Platelet mean volume (Bld) [Entitic vol] 8.4 fL 6.3-10.7 [facility] Platelets Auto (Bld) [#/Vol] Ordered By: Destiny Irwin on 08-31-2023 Platelets (Bld) [#/Vol] 249 10*3/uL 150-450 [facility] Potassium [Moles/volume] in Serum or PlasmaOrdered By: Destiny Irwin on 08-31-2023 Potassium [Moles/Vol] 4.6 mmol/L 3.5-5.1 [facility] Protein Auto test strip (U) [Mass/Vol]Ordered By: Destiny Irwin on 08-31-2023 Protein (U) [Mass/Vol] 30 mg/dL Negative [facility] Protein [Mass/volume] in Ser um or PlasmaOrdered By: Destiny Irwin on 08-31-2023 Protein [Mass/Vol] 8.0 g/dL 6.4-8.9 [facility] RBC Auto (Bld) [#/Vol]Ordere d By: Destiny Irwin on 08-31-2023 RBC (Bld) [#/Vol] 4.24 10*6/uL 3.60-5.00 [facility] Serum or plasma albumin/glob ulin mass ratioOrdered By: Destiny Irwin on 08-31-2023 Albumin/Globulin [Mass ratio] 1.4 {ratio} [facility] Serum or plasma anion gap de terminationOrdered By: Destiny Irwin on 08-31-2023 Anion gap [Moles/Vol] 16.9 mmol/L 6.0-15.0 [facility] Serum or plasma non-glucuron idated bilirubin measurement (mass/volume)Ordered By: Destiny Irwin on 08-31-2023 Bilirubin.indirect [Mass/Vol] 0.4 mg/dL [facility] Sodium [Moles/volume] in Ser um or PlasmaOrdered By: Destiny Irwin on 08-31-2023 Sodium [Moles/Vol] 139 mmol/L 136-145 [facility] Specific gravity Auto test s trip (U) [Rel density]Ordered By: Destiny Irwin on 08-31-2023 Specific gravity (U) [Rel density] 1.016 1.001-1.030 [facility] Squamous epithelial cells de tection in urine sediment by light microscopyOrdered By: Destiny Irwin on 08-31-2023 Epithelial cells.squamous LM Ql (Urine sed) 3-4 [HPF] 0-2 [facility] Troponin I High Sensitivityo n 08-31-2023 Troponin I High Sensitivity 18.1 pg/mL High 0.0-15.0 [facility] Comment on above: Result Comment: PERF ORMED BY: [facility] [address] [place] [address] PATHOLOGIST OFFICE EQUIPMENT TECHNICIAN BARBARA MUNOZ M.D. Performed By: #### H S TROP ####[facility] [place] [id number] [facility] Troponin I.cardiac [Mass/vol ume] in Serum or Plasma by Detection limit <= 0.01 ng/Ordered By: Destiny Irwin on 08-31-2023 Troponin I.cardiac DL <= 0.01 ng/mL [Mass/Vol] 18.1 pg/mL 0.0-15.0 [facility] Urea nitrogen [Mass/volume] in Serum or PlasmaOrdered By: Destiny Irwin on 08-31-2023 Urea nitrogen [Mass/Vol] 30 mg/dL 7-25 [facility] Urine bacteria detection by automated methodOrdered By: Destiny Irwin on 08-31-2023 Bacteria Auto Ql (U) None seen None Seen [facility] Urine clarity by refractomet ry automatedOrdered By: Destiny Irwin on 08-31-2023 Clarity Refractometry automated (U) Cloudy Clear [facility] Urine glucose measurement by automated test strip (mass/volume)Ordered By: Destiny Irwin on 08-31-2023 Glucose Auto test strip (U) [Mass/Vol] Normal mg/dL Normal [facility] Urine hemoglobin detection b y automated test stripOrdered By: Destiny Irwin on 08-31-2023 Hemoglobin Auto test strip Ql (U) Trace Negative [facility] Urine leukocyte esterase det ection by automated test stripOrdered By: Destiny Irwin on 08-31-2023 Leukocyte esterase Auto test strip Ql (U) 4+ Negative [facility] Urobilinogen Auto test strip (U) [Mass/Vol]Ordered By: Destiny Irwin on 08-31-2023 Urobilinogen (U) [Mass/Vol] Normal mg/dL Normal [facility] WBC Auto (Bld) [#/Vol]Ordere d By: Destiny Irwin on 08-31-2023 WBC (Bld) [#/Vol] 9.4 10*3/uL 3.8-11.6 [facility] pH Auto test strip (U)Ordere d By: Destiny Irwin on 08-31-2023 pH (U) 6.0 [pH] 5.0-9.0 [facility] Insurance Correspondence Off iceon 08-27-2023 Insurance Correspondence Office [id number] Normal [facility] CBC AUTO DIFFon 04-12-2021 BASO # 0.0 103/ul Normal 0.0-0.1 [facility] Comment on above: Performed By: #### C BC #### [facility] [address] [place] [address] Chelsey Isabel Basophils/100 WBC (Bld) 0.3 % Normal 0.2-2.0 [facility] Comment on above: Performed By: #### C BC #### [facility] [address] [place] [address] Chelsey Isabel EO # 0.1 103/ul Normal 0.0-0.7 [facility] Comment on above: Performed By: #### C BC #### [facility] [address] [place] [address] Chelsey Isabel Eosinophils/100 WBC (Bld) 2.1 % Normal 0.9-7.0 [facility] Comment on above: Performed By: #### C BC #### [facility] [address] [place] [address] Chelsey Isabel Erythrocyte distribution width (RBC) [Ratio] 13.7 % Normal 11.0-15.0 [facility] Comment on above: Performed By: #### C BC #### [facility] [address] [place] [address] Chelsey Isabel Hematocrit (Bld) [Volume fraction] 39.6 % Normal 36.0-48.0 [facility] Comment on above: Performed By: #### C BC #### [facility] [address] [place] [address] Chelsey Isabel Hemoglobin (Bld) [Mass/Vol] 12.9 g/dL Normal 12.0-16.0 [facility] Comment on above: Performed By: #### C BC #### [facility] [address] [place] [address] Chelsey Isabel IG # 0.01 10e3/ul Normal 0.00-0.03 [facility] Comment on above: Performed By: #### C BC #### [facility] [address] [place] [address] Chelsey Isabel IG % 0.2 % Normal 0.0-0.5 [facility] Comment on above: Performed By: #### C BC #### [facility] [address] [place] [address] Chelsey Isabel LYMPH # 2.2 103/ul Normal 1.2-3.8 [facility] Comment on above: Performed By: #### C BC #### [facility] [address] [place], [place] [id number] Chelsey Isabel Lymphocytes/100 WBC (Bld) 35.3 % Normal 20.5-60.0 [facility] Comment on above: Performed By: #### C BC #### [facility] [address] [place], [place] [id number] Chelsey Isabel MANUAL DIFF REQ NO Normal [facility] Comment on above: Performed By: #### C BC #### [facility] [address] [place], [place] [address] Chelsey Isabel MCH (RBC) [Entitic mass] 31.1 pg Normal 26.7-34.0 [facility] Comment on above: Performed By: #### C BC #### [facility] [address] [place] [address] Chelseyfeliberto Hall MCHC (RBC) [Mass/Vol] 32.6 g/dL Normal 29.9-35.2 [facility] Comment on above: Performed By: #### C BC #### [facility] [address] [place] [address] Chelsey Isabel MCV (RBC) [Entitic vol] 95.4 fL Normal 81.0-99.0 [facility] Comment on above: Performed By: #### C BC #### [facility] [address] [place] [address] Chelsey Isabel MONO # 0.7 103/ul Normal 0.3-0.8 [facility] Comment on above: Performed By: #### C BC #### [facility] [address] [place], [place] [address] Chelsey Isabel Monocytes/100 WBC (Bld) 12.1 % Critically high 1.7-12. 0 [facility] Comment on above: Performed By: #### C BC #### [facility] [address] [place] [address] Chelsey Isabel NEUT # 3.1 103/ul Normal 1.4-6.5 [facility] Comment on above: Performed By: #### C BC #### [facility] [address] [place], [place] [address] Chelsey Isabel Neutrophils/100 WBC (Bld) 50.0 % Normal 43.0-75.0 [facility] Comment on above: Performed By: #### C BC #### [facility] [address] [place], [place] [address] Chelsey Isabel Platelet mean volume (Bld) [Entitic vol] 10.2 fL Normal 9.5-13.5 [facility] Comment on above: Performed By: #### C BC #### [facility] [address] [place] [address] Chelsey Isabel PLT 212 103/ul Normal 150-450 [facility] Comment on above: Performed By: #### C BC #### [facility] [address] [place], [place] [address] Chelsey Isabel RBC 4.15 106/ul Critically low 4.20-5.40 [facility] Comment on above: Performed By: #### C BC #### [facility] [address] [place] [address] Chelsey Isabel WBC 6.1 103/ul Normal 4.0-11.0 [facility] Comment on above: Performed By: #### C BC #### [facility] [address] [place] [address] Chelsey Isabel RENAL FUNCTION PANELon 04-12 Albumin [Mass/Vol] 3.4 g/dL Critically low 3.5-5.0 [facility] Comment on above: Performed By: #### R ENAL #### [facility] [address] [place] [address] Chelsey Isabel Calcium [Mass/Vol] 8.9 mg/dL Normal 8.4-10.2 [facility] Comment on above: Performed By: #### R ENAL #### [facility] [address] [place] [address] Chelsey Isabel Chloride [Moles/Vol] 106 mmol/L Normal 98-107 [facility] Comment on above: Performed By: #### R ENAL #### [facility] [address] [place] [address] Chelsey Isabel CO2 [Moles/Vol] 29.4 mmol/L Normal 22.0-30.0 [facility] Comment on above: Performed By: #### R ENAL #### [facility] [address] [place] [address] Chelsey Isabel Creatinine [Mass/Vol] 1.49 mg/dL Critically high 0.52-1.04 [facility] Comment on above: Performed By: #### R ENAL #### [facility] [address] [place] [address] Chelsey Isabel EGFR-AF GREEK 41 mL/min/1.73m2 Critically low >=60 [facility] Comment on above: Performed By: #### R ENAL #### [facility] [address] [place] [address] Chelsey Isabel EGFR-NON AF GREEK 33 mL/min/1.73m2 Critically low >=60 [facility] Comment on above: Performed By: #### R ENAL #### [facility] [address] [place] [address] Chelsey Isabel Glucose [Mass/Vol] 138 mg/dL Critically high 74-106 [facility] Comment on above: Performed By: #### R ENAL #### [facility] [address] [place] [address] Chelsey Isabel Phosphate [Mass/Vol] 4.3 mg/dL Normal 2.5-4.5 [facility] Comment on above: Performed By: #### R ENAL #### [facility] [address] [address] Chelsey Isabel Potassium [Moles/Vol] 3.2 mmol/L Critically low 3.4-5.0 [facility] Comment on above: Performed By: #### R ENAL #### [facility] [address] [place] [address] Chelsey Isabel Sodium [Moles/Vol] 144 mmol/L Normal 137-145 [facility] Comment on above: Performed By: #### R ENAL #### [facility] [address] [place], [place] [address] Chelsey Isabel Urea nitrogen [Mass/Vol] 28.0 mg/dL Critically high 7.0-17.0 [facility] Comment on above: Performed By: #### R ENAL #### [facility] [address] [place], [place] [address] Chelsey Isabel UA RANDOMon 04-12-2021 Bilirubin Ql (U) Negative Normal NEGATIVE [facility] Comment on above: Performed By: #### U A #### [facility] [address] [place] [address] Chelsey Isabel Clarity (U) CLOUDY Abnormal CLEAR [facility] Comment on above: Performed By: #### U A #### [facility] [address] [place] [address] Chelsey Isabel Color (U) LT. YELLOW Normal YELLOW [facility] Comment on above: Performed By: #### U A #### [facility] [address] [place] [address] Chelsey Isabel Glucose Ql (U) Negative Normal NEGATIVE [facility] Comment on above: Performed By: #### U A #### [facility] [address] [place] [address] Chelsey Isabel Hemoglobin Ql (U) LARGE Abnormal NEGATIVE [facility] Comment on above: Performed By: #### U A #### [facility] [address] [place] [address] Chelsey Isabel Ketones Ql (U) Negative Normal NEGATIVE [facility] Comment on above: Performed By: #### U A #### [facility] [address] [place] [address] Chelsey Isabel LEUKOCYTES LARGE Abnormal NEGATIVE [facility] Comment on above: Performed By: #### U A #### [facility] [address] [place] [address] Chelsey Isabel Nitrite Ql (U) Negative Normal NEGATIVE [facility] Comment on above: Performed By: #### U A #### [facility] [address] [place] [address] Chelsey Isabel pH (U) 6.5 [pH] Normal 5-9 [facility] Comment on above: Performed By: #### U A #### [facility] [address] [place], [place] [address] Chelsey Hall SPEC GRAVITY 1.015 Normal 1.005-<=1.02 5 [facility] Comment on above: Performed By: #### U A #### [facility] [address] [place], [place] [address] Chelsey Hall UA PROTEIN 30 mg/dl Abnormal NEGATIVE/ TRACE [facility] Comment on above: Performed By: #### U A #### [facility] [address] [place], [place] [address] Chelsey Hall Urobilinogen Qn (U) 0.2 {Gerard'U}/dL Normal 0.2 - 1. 0 [facility] Comment on above: Performed By: #### U A #### [facility] [address] [place] [address] Chelsey Hall C-Reactive Proteinon 021 CRP [Mass/Vol] 7.9 mg/L High 0.0-5.0 [facility] Comment on above: Performed By: #### C DP #### [facility] [address] [place] [address] Blogs Manager: Loi Irene MD #### CRP #### [facility] [address] [place], [place] [id number] Blogs Manager: Dg Aparicio MD CRP [Mass/Vol] 7.9 mg/L High 0.0 - 5.0 mg/L [facility] Phone: Interpretation and review of laboratory results Abnormal [facility] Phone: PTH, Intacton 12-06-2020 PTH, Intact 39.87 pg/mL Normal 15.0-65.0 [facility] Comment on above: Result Comment: SAMP LES FROM PATIENTS ROUTINELY RECEIVING HIGH DOSE BIOTIN THERAPY MAY SHOW FALSELY DEPRESSED RESULTS. ADDITIONAL INFORMATION MAY BE REQUIRED FOR DIAGNOSIS. Performed By: #### ARMANDO Warren URI #### [facility] [address] [place] [address] Blogs Manager: Loi Irene MD #### PTHNCA #### [email or web address] [address] [place], [place] [id number] Blogs Manager: Dg Aparicio MD Pth Intact 39.87 pg/mL 15.0 - 65.0 pg/mL [employer] Phone: Comment on above: SAMPLES FROM PATIENT S ROUTINELY RECEIVING HIGH DOSE BIOTIN THERAPY MAY SHOW FALSELY DEPRESSED RESULTS. ADDITIONAL INFORMATION MAY BE REQUIRED FOR DIAGNOSIS. CBC Auto Differentialon 11-25 Basophils (Bld) [#/Vol] 10*3/uL [employer] Phone: Basophils/100 WBC (Bld) 0 % 0 - 2 % [employer] Phone: Differential Type NOT REPORTED [employer] Phone: Eosinophils (Bld) [#/Vol] 0.16 10*3/uL [employer] Phone: Eosinophils/100 WBC (Bld) 3 % 1 - 4 % [employer] Phone: Erythrocyte distribution width (RBC) [Ratio] 15.3 % High 11.8 - 14.4 % [employer] Phone: Hematocrit (Bld) [Volume fraction] 38.3 % 36.3 - 47.1 % [employer] Phone: Hemoglobin (Bld) [Mass/Vol] 11.9 g/dL 11.9 - 15.1 g/dL [employer] Phone: Immature granulocytes (Bld) [#/Vol] 10*3/uL [employer] Phone: Immature granulocytes (Bld) [#/Vol] 0 % 0 [employer] Phone: Interpretation and review of laboratory results Abnormal [employer] Phone: Lymphocytes (Bld) [#/Vol] 1.68 10*3/uL [employer] Phone: Lymphocytes/100 WBC (Bld) 32 % 24 - 43 % [employer] Phone: MCH (RBC) [Entitic mass] 31.2 pg 25.2 - 33.5 pg [employer] Phone: MCHC (RBC) [Mass/Vol] 31.1 g/dL 28.4 - 34.8 g/dL [employer] Phone: MCV (RBC) [Entitic vol] 100.3 fL 82.6 - 102.9 fL [employer] Phone: Monocytes (Bld) [#/Vol] 0.67 10*3/uL [employer] Phone: Monocytes/100 WBC (Bld) 13 % High 3 - 12 % M [employer] Phone: Platelet mean volume (Bld) [Entitic vol] 10.2 fL 8.1 - 13.5 fL [employer] Phone: Platelets (Bld) [#/Vol] 238 10*3/uL [employer] Phone: Platelets (Bld) [#/Vol] NOT REPORTED [employer] Phone: RBC (Bld) [#/Vol] 3.82 10*6/uL Low 3.95 - 5.1 1 m/uL [employer] Phone: RBC morphology finding Nom (Bld) NOT REPORTED [employer] Phone: Segmented neutrophils/100 WBC (Bld) 52 % 36 - 65 % [employer] Phone: Segs Absolute 2.75 [employer] Phone: WBC (Bld) [#/Vol] 5.3 10*3/uL [facility] [place] [employer] Phone: WBC (Bld) [#/Vol] 0.0 10*3/uL 0.0 per 10 0 WBC [facility] [place] [employer] Phone: WBC Morphology NOT REPORTED [facility] [place] [employer] Phone: CBC with Diffon 12-05-2020 Abs. Basophil <0.03 Normal 0.00-0.20 [facility] Comment on above: Performed By: #### C DP #### [facility] [address] [place] [address] [place] [address] Blogs Manager: Loi Irene MD #### CRP #### [address] [id number] Blogs Manager: Dg Aparicio MD Abs.Imm.Granulocyte <0.03 Normal 0.00-0.30 [facility] Comment on above: Performed By: #### C DP #### [address] [place] [id number] Blogs Manager: Loi Irene MD #### CRP #### [address] [id number] Blogs Manager: Dg Aparicio MD Abs.Neutrophil (Seg) 2.75 k/uL Normal 1.50-8.10 [facility] Comment on above: Performed By: #### C DP #### [facility] [address] [place] [address] [place] [address] Blogs Manager: Loi Irene MD #### CRP #### [address] [address] Blogs Manager: Dg Aparicio MD Basophils/100 WBC (Bld) 0 % Normal 0-[address] [facility] Comment on above: Performed By: #### C DP #### [address] [place] [id number] Blogs Manager: Loi Irene MD #### CRP #### [address] [address] Blogs Manager: Dg Aparicio MD Eosinophils (Bld) [#/Vol] 0.16 10*3/uL Normal 0.00-0.44 [facility] Comment on above: Performed By: #### C DP #### [address] [place] [id number] Blogs Manager: Loi Irene MD #### CRP #### [place] [id number] Blogs Manager: Dg Aparicio MD Eosinophils/100 WBC (Bld) 3 % Normal 1-4 [facility] Comment on above: Performed By: #### C DP #### [address] [place] [id number] ( Blogs Manager: Loi Irene MD #### CRP #### [place] [address] Blogs Manager: Dg Aparicio MD Erythrocyte distribution width (RBC) [Ratio] 15.3 % High 11.8-14.4 [facility] Comment on above: Performed By: #### C DP #### [address] [place] [id number] Blogs Manager: Loi Irene MD #### CRP #### [address] [id number] Blogs Manager: Dg Aparicio MD Hematocrit (Bld) [Volume fraction] 38.3 % Normal 36.3-47.1 [facility] Comment on above: Performed By: #### C DP #### [address] [place] [id number] Blogs Manager: Loi Irene MD #### CRP #### [address] [address] Blogs Manager: Dg Aparicio MD Hemoglobin (Bld) [Mass/Vol] 11.9 g/dL Normal 11.9-15.1 [facility] Comment on above: Performed By: #### C DP #### [facility] [address] [place], [place] [address] Blogs Manager: Loi Irene MD #### CRP #### [address] [address] Blogs Manager: Dg Aparicio MD Immature granulocytes/100 WBC (Bld) 0 % Normal 0 [facility] Comment on above: Performed By: #### C DP #### [facility] [address] [place], [place] [id number] Blogs Manager: Loi Irene MD #### CRP #### [address] [address] Blogs Manager: Dg Aparicio MD Lymphocytes (Bld) [#/Vol] 1.68 10*3/uL Normal 1.10-3.70 [facility] Comment on above: Performed By: #### C DP #### [facility] [address] [place], [place] [phone] Blogs Manager: Loi Irene MD #### CRP #### [address] [address] Blogs Manager: Dg Aparicio MD Lymphocytes/100 WBC (Bld) 32 % Normal 24-43 [facility] Comment on above: Performed By: #### C DP #### [facility] [address] [place], [place] [id number] Blogs Manager: Loi Irene MD #### CRP #### [address] [id number] Blogs Manager: Dg Aparicio MD MCH (RBC) [Entitic mass] 31.2 pg Normal 25.2-33.5 [facility] Comment on above: Performed By: #### C DP #### [facility] [address] [place] [address] [address] [place] [id number] Blogs Manager: Loi Irene MD #### CRP #### [place] [id number] Blogs Manager: Dg Aparicio MD MCHC (RBC) [Mass/Vol] 31.1 g/dL Normal 28.4-34.8 [facility] Comment on above: Performed By: #### C DP #### [address] [place] [id number] ( Blogs Manager: Loi Irene MD #### CRP #### [place] [address] Blogs Manager: Dg Aparicio MD MCV (RBC) [Entitic vol] 100.3 fL Normal 82.6-102.[address] [facility] Comment on above: Performed By: #### C DP #### [address] [place] [id number] Blogs Manager: Loi Irene MD #### CRP #### [place] [address] Blogs Manager: Dg Aparicio MD Monocytes (Bld) [#/Vol] 0.67 10*3/uL Normal 0.10-1.20 [facility] Comment on above: Performed By: #### C DP #### [address] [place] [id number] Blogs Manager: Loi Irene MD #### CRP #### [address] [id number] Blogs Manager: Dg Aparicio MD Monocytes/100 WBC (Bld) 13 % High 3-[address] [facility] Comment on above: Performed By: #### C DP #### [facility] [address] [place], [place] [phone] Blogs Manager: Loi Irene MD #### CRP #### [address] [address] Blogs Manager: Dg Aparicio MD Neutrophil (Seg) 52 % Normal 36-65 [facility] Comment on above: Performed By: #### C DP #### [address] [place], [place] [id number] Blogs Manager: Loi Irene MD #### CRP #### [address] [address] Blogs Manager: Dg Aparicio MD NRBC Automated 0.0 per 100 WBC Normal 0.0 [facility] Comment on above: Performed By: #### C DP #### [facility] [address] [place] [address] [place] [address] Blogs Manager: Loi Irene MD #### CRP #### [address] [address] Blogs Manager: Dg Aparicio MD Platelet mean volume (Bld) [Entitic vol] 10.2 fL Normal 8.1-13.5 [facility] Comment on above: Performed By: #### C DP #### [facility] [address] [place] [address] Dr. [place], [place] [id number] Blogs Manager: Loi Irene MD #### CRP #### [address] [address] Blogs Manager: Dg Aparicio MD Platelets (Bld) [#/Vol] 238 10*3/uL Normal 138-453 [facility] Comment on above: Performed By: #### C DP #### [address] [place] [address] Blogs Manager: Loi Irene MD #### CRP #### [address] [address] Blogs Manager: Dg Aparicio MD RBC (Bld) [#/Vol] 3.82 10*6/uL Low 3.95-5.11 [facility] Comment on above: Performed By: #### C DP #### [address] [place] [address] Blogs Manager: Loi Irene MD #### CRP #### [address] [address] Blogs Manager: Dg Aparicio MD WBC (Bld) [#/Vol] 5.3 10*3/uL Normal 3.5-11.3 [facility] Comment on above: Performed By: #### C DP #### [address] [place] [place] [address] Blogs Manager: Loi Irene MD #### CRP #### [address] [address] Blogs Manager: Dg Aparicio MD Auto Diff Performed NOT REPORTED Normal [facility] Comment on above: Performed By: #### C DP #### [address] [place] [address] Blogs Manager: Loi Irene MD #### CRP #### [address] [address] Blogs Manager: Dg Aparicio MD Platelet Estimate NOT REPORTED Normal [facility] Comment on above: Performed By: #### C DP #### [address] [place] [address] Blogs Manager: Loi Irene MD #### CRP #### [address] [place] [address] Blogs Manager: Dg Aparicio MD RBC morphology finding Nom (Bld) NOT REPORTED Normal [facility] Comment on above: Performed By: #### C DP #### [facility] [address] [place], [place] 14[address] Blogs Manager: Loi Irene MD #### CRP #### [address] [address] Blogs Manager: Dg Aparicio MD WBC Morphology NOT REPORTED Normal [facility] Comment on above: Performed By: #### C DP #### [address] [place], [place] [id number] Blogs Manager: Loi Irene MD #### CRP #### [address] [address] Blogs Manager: Dg Aparicio MD Magnesiumon 3 Magnesium [Mass/Vol] 2.2 mg/dL Normal 1.6-2.6 [facility] Comment on above: Performed By: #### M ARMANDO Padgett URI #### [facility] [address] [place] [address] [address] [place], [place] [id number] Blogs Manager: Loi Irene MD #### PTHNCA #### [address] [address] Blogs Manager: Dg Aparicio MD Magnesium [Mass/Vol] 2.2 mg/dL 1.6 - 2 .6 mg/dL [employer] Phone: Metabolic Panelon 12-05-2020 GFR/1.73 sq M predicted among non-blacks MDRD (S/P/Bld) [Vol rate/Area] [facility]: Comment on above: Average GFR for 70 o r more years old: 75 mL/min/1.73sq m Chronic Kidney Disease: <60 mL/min/1.73sq m Kidney failure: <15 mL/min/1.73sq m eGFR calculated using average adult body mass. Additional eGFR calculator available at: http://www.trueEX/multiple_crcl_2012.htm Stage 1: Some kidney damage normal GFR Stage 2: Mild kidney damage GFR 60-89 Stage 3: Moderate kidney damage GFR 30-59 Stage 4: Severe kidney damage GFR 15-29 Stage 5: Severe kidney damage GFR <15 ESRD - chronic treatment by dialysis or transplant Otheron 12-05-2020 Interpretation and review of laboratory results Abnormal [facility] [place] Work Phone: Renal Function Panelon 12-05 (cont.) Normal [facility] Comment on above: Result Comment: Aver age GFR for 70 or more years old: 75 mL/min/1.73sq m Chronic Kidney Disease: <60 mL/min/1.73sq m Kidney failure: <15 mL/min/1.73sq m eGFR calculated using average adult body mass. Additional eGFR calculator available at: http://www.trueEX/multiple_crcl_2012.htm Performed By: #### M ARMANDO Padgett, URI #### [facility] [address] [place] [address] [place] [address] Blogs Manager: Loi Irene MD #### PTHNCA #### [id number] [place] [address] Blogs Manager: Dg Aparicio MD Albumin [Mass/Vol] 3.5 g/dL Normal 3.5-5.2 [facility] Comment on above: Performed By: #### M FROY PadgettP, URI #### [facility] [address] [place] [address] [place] [address] Blogs Manager: Loi Irene MD #### PTHNCA #### [id number] [place], [place] [phone] Blogs Manager: Dg Aparicio MD Anion gap [Moles/Vol] 11 mmol/L Normal 9-17 [facility] Comment on above: Performed By: #### M ARMANDO Padgett, URI #### [facility] [address] [place], [place] [id number] Blogs Manager: Loi Irene MD #### PTHNCA #### [address] [address] Blogs Manager: Dg Aparicio MD BUN/CRE Ratio 20 Normal 9-20 [facility] Comment on above: Performed By: #### M FROY PadgettP, URI #### [facility] [address] [place], [place] [id number] Blogs Manager: Loi Irene MD #### PTHNCA #### [address] [address] Blogs Manager: Dg Aparicio MD Calcium [Mass/Vol] 9.3 mg/dL Normal 8.6-10.4 [facility] Comment on above: Performed By: #### ARMANDO Warren, URI #### [facility] [address] [place] [address] Blogs Manager: Loi Irene MD #### PTHNCA #### [address] [address] Blogs Manager: Dg Aparicio MD Chloride [Moles/Vol] 103 mmol/L Normal 98-107 [facility] Comment on above: Performed By: #### FROY WarrenP, URI #### [facility] [address] [place] [address] Blogs Manager: Loi Irene MD #### PTHNCA #### [address] [address] Blogs Manager: Dg Aparicio MD CO2 [Moles/Vol] 29 mmol/L Normal 20-31 [facility] Comment on above: Performed By: #### M G, RENP, URI #### [facility] [address] [place], [place] [phone] Blogs Manager: Loi Irene MD #### PTHNCA #### [address] [address] Blogs Manager: Dg Aparicio MD Creatinine [Mass/Vol] 1.43 mg/dL High 0.50-0.90 [facility] Comment on above: Performed By: #### M FROY PadgettP, URI #### [facility] [address] [place], [place] [phone] Blogs Manager: Loi Irene MD #### PTHNCA #### [address] [id number] Blogs Manager: Dg Aparicio MD GFR, Amer 42 mL/min Low >60 [facility] Comment on above: Performed By: #### M ARMANDO Padgett, URI #### [facility] [address] [place], [place] [phone] Blogs Manager: Loi Irene MD #### PTHNCA #### [address] [address] Blogs Manager: Dg Aparicio MD GFR,non Amer 35 mL/min Low >60 [facility] Comment on above: Performed By: #### M ARMANDO Padgett, URI #### [facility] [address] [place] [address] [address] [place], [place] [phone] Blogs Manager: Loi Irene MD #### PTHNCA #### [address] [address] Blogs Manager: Dg Aparicio MD Glucose [Mass/Vol] 131 mg/dL High 70-99 [facility] Comment on above: Performed By: #### ARMANDO [place], URI #### [facility] [address] [place] [address] [place]. [place] [phone] Blogs Manager: Loi Irene MD #### PTHNCA #### [address] [phone] Blogs Manager: Dg Aparicio MD Phosphorus, Inorg. 3.6 mg/dL Normal 2.6-4.5 [facility] Comment on above: Performed By: #### ARMANDO Warren URI #### [facility] [address] [place] [address] [place], [place] [phone] Blogs Manager: Loi Irene MD #### PTHNCA #### [address] [phone] Blogs Manager: Dg Aparicio MD Potassium [Moles/Vol] 3.4 mmol/L Low 3.7-5.3 [facility] Comment on above: Performed By: #### ARMANDO Warren URI #### [address] [place], [place] [phone] Blogs Manager: Loi Irene MD #### PTHNCA #### [address] [id number] Blogs Manager: Dg Aparicio MD Sodium [Moles/Vol] 143 mmol/L Normal 135-144 [facility] Comment on above: Performed By: #### ARMANDO Warren URI #### [address] [place], [place] [phone] Blogs Manager: Loi Irene MD #### PTHNCA #### [address] [phone] Blogs Manager: Dg Aparicio MD Staging: Normal [facility] Comment on above: Result Comment: Stag e 1: Some kidney damage normal GFR Stage 2: Mild kidney damage GFR 60-89 Stage 3: Moderate kidney damage GFR 30-59 Stage 4: Severe kidney damage GFR 15-29 Stage 5: Severe kidney damage GFR <15 ESRD - chronic treatment by dialysis or transplant Performed By: #### M ARMANDO Padgett, URI #### [facility] [address] [place] [address] Blogs Manager: Loi Irene MD #### PTHNCA #### [facility]Results [address] [place], [place] [phone] Blogs Manager: Dg Aparicio MD Urea nitrogen [Mass/Vol] 29 mg/dL High 8-23 [facility] Comment on above: Performed By: #### ARMANDO [place], URI #### [facility] [address] [place] [address] Blogs Manager: Loi Irene MD #### PTHNCA #### [facility] [address] [place], [place] [phone] Blogs Manager: Dg Aparicio MD Albumin [Mass/Vol] 3.5 g/dL 3.5 - 5.2 g/dL [employer] Phone: Anion gap [Moles/Vol] 11 mmol/L 9 - 17 mmol/L [employer] Phone: Bun/Cre Ratio 20 [employer] Phone: Calcium [Mass/Vol] 9.3 mg/dL 8.6 - 10. 4 mg/dL [employer] Phone: Chloride [Moles/Vol] 103 mmol/L 98 - 10 7 mmol/L [employer] Phone: CO2 [Moles/Vol] 29 mmol/L 20 - 31 mmol/L [employer] Phone: Creatinine [Mass/Vol] 1.43 mg/dL High 0.50 - 0.90 mg/dL [employer] Phone: GFR 42 mL/min Low >60 [employer] Phone: GFR Non- 35 mL/min Low >60 [employer] Phone: Glucose [Mass/Vol] 131 mg/dL High 70 - 99 mg/dL [employer] Phone: Phosphate [Mass/Vol] 3.6 mg/dL 2.6 - 4 .5 mg/dL [employer] Phone: Potassium [Moles/Vol] 3.4 mmol/L Low 3.7 - 5.3 mmol/L [employer] Phone: Sodium [Moles/Vol] 143 mmol/L 135 - 144 mmol/L [facility] [employer] Phone: Urea nitrogen [Mass/Vol] 29 mg/dL High 8 - 23 mg/dL [facility] [employer] Phone: Uric Acidon 12-05-2020 Urate [Mass/Vol] 7.3 mg/dL High 2.4-5.7 [facility] Comment on above: Performed By: #### M G, RENP, URI #### [facility] [address] [place] [address] [place] [address] Blogs Manager: Loi Irene MD #### PTHNCA #### [facility]Results [address] [place] [address] [phone] Blogs Manager: Dg Aparicio MD Urate [Mass/Vol] 7.3 mg/dL High 2.4 - 5.7 mg/dL [facility] Phone: C-Reactive Proteinon 021 CRP [Mass/Vol] 7.8 mg/L High 0.0-5.0 [facility] Comment on above: Performed By: #### C DP, SED #### [facility] [address] [place] [address] [place] [address] Blogs Manager: Loi Irene MD #### CRP #### [facility]Results [address] [place] [address] Blogs Manager: Dg Aparicio MD CRP [Mass/Vol] 7.8 mg/L High 0 - 5 mg/L [employer] Phone: Interpretation and review of laboratory results Abnormal [employer] Phone: CBC Auto Differentialon 10-28 Basophils (Bld) [#/Vol] 10*3/uL [facility] [employer] Phone: Basophils/100 WBC (Bld) 0 % 0 - 2 % [facility] [employer] Phone: Differential Type NOT REPORTED [employer] Phone: Eosinophils (Bld) [#/Vol] 0.37 10*3/uL [employer] Phone: Eosinophils/100 WBC (Bld) 5 % High 1 - 4 % [employer] Phone: Erythrocyte distribution width (RBC) [Ratio] 17.7 % High 11.8 - 14.4 % [employer] Phone: Hematocrit (Bld) [Volume fraction] 36.9 % 36.3 - 47.1 % [employer] Phone: Hemoglobin (Bld) [Mass/Vol] 11.1 g/dL Low 11.9 - 15.1 g/dL [employer] Phone: Immature granulocytes (Bld) [#/Vol] 10*3/uL [employer] Phone: Immature granulocytes (Bld) [#/Vol] 0 % 0 [employer] Phone: Interpretation and review of laboratory results Abnormal [employer] Phone: Lymphocytes (Bld) [#/Vol] 1.74 10*3/uL [employer] Phone: Lymphocytes/100 WBC (Bld) 23 % Low 24 - 43 % [employer] Phone: MCH (RBC) [Entitic mass] 29.6 pg 25.2 - 33.5 pg [employer] Phone: MCHC (RBC) [Mass/Vol] 30.1 g/dL 28.4 - 34.8 g/dL [employer] Phone: MCV (RBC) [Entitic vol] 98.4 fL 82.6 - 102.9 fL [employer] Phone: Monocytes (Bld) [#/Vol] 0.76 10*3/uL [employer] Phone: Monocytes/100 WBC (Bld) 10 % 3 - 12 % [employer] Phone: Platelet mean volume (Bld) [Entitic vol] 9.9 fL 8.1 - 13.5 fL [employer] Phone: Platelets (Bld) [#/Vol] NOT REPORTED [employer] Phone: Platelets (Bld) [#/Vol] 344 10*3/uL [employer] Phone: RBC (Bld) [#/Vol] 3.75 10*6/uL Low 3.95 - 5.1 1 m/uL [employer] Phone: RBC morphology finding Nom (Bld) NOT REPORTED [employer] Phone: Segmented neutrophils/100 WBC (Bld) 62 % 36 - 65 % [employer] Phone: Segs Absolute 4.61 [employer] Phone: WBC (Bld) [#/Vol] 7.5 10*3/uL [employer] Phone: WBC (Bld) [#/Vol] 0.0 10*3/uL 0.0 per 10 0 WBC [employer] Phone: WBC Morphology NOT REPORTED [facility] Phone: CBC with Diffon 11-07-2020 Abs. Basophil <0.03 Normal 0.00-0.20 [facility] Comment on above: Performed By: #### C DP, SED #### [facility] [address] [place] [phone] Blogs Manager: Loi Irene MD #### CRP #### [address] [id number] Blogs Manager: Dg Aparicio MD Abs.Imm.Granulocyte <0.03 Normal 0.00-0.30 [facility] Comment on above: Performed By: #### C DP, SED #### [address] [place] [phone] Blogs Manager: Loi Irene MD #### CRP #### [address] [id number] Blogs Manager: Dg Aparicio MD Abs.Neutrophil (Seg) 4.61 k/uL Normal 1.50-8.10 [facility] Comment on above: Performed By: #### C DP, SED #### [address] [place] [phone] Blogs Manager: Loi Irene MD #### CRP #### [address] [address] Blogs Manager: Dg Aparicio MD Basophils/100 WBC (Bld) 0 % Normal 0-[address] [facility] Comment on above: Performed By: #### C DP, SED #### [address] [place], [place] [phone] Blogs Manager: Loi Irene MD #### CRP #### [address] [address] Blogs Manager: Dg Aparicio MD Eosinophils (Bld) [#/Vol] 0.37 10*3/uL Normal 0.00-0.44 [facility] Comment on above: Performed By: #### C DP, SED #### [facility] [address] [place] [address] Dr. [place] [phone] ( Blogs Manager: Loi Irene MD #### CRP #### [place] [address] Blogs Manager: Dg Aparicio MD Eosinophils/100 WBC (Bld) 5 % High 1-4 [facility] Comment on above: Performed By: #### C DP, SED #### [address] [place] [phone] ( Blogs Manager: Loi Irene MD #### CRP #### [place] [address] Blogs Manager: Dg Aparicio MD Erythrocyte distribution width (RBC) [Ratio] 17.7 % High 11.8-14.4 [facility] Comment on above: Performed By: #### C DP, SED #### [address] [place] [id number] ( Blogs Manager: Loi Irene MD #### CRP #### [place] [address] Blogs Manager: Dg Aparicio MD Hematocrit (Bld) [Volume fraction] 36.9 % Normal 36.3-47.1 [facility] Comment on above: Performed By: #### C DP, SED #### [facility] [address] [place] [address] Dr. [place] [phone] ( Blogs Manager: Loi Irene MD #### CRP #### [address] [address] Blogs Manager: Dg Aparicio MD Hemoglobin (Bld) [Mass/Vol] 11.1 g/dL Low 11.9-15.1 [facility] Comment on above: Performed By: #### C DP, SED #### [facility] [address] [place], [place] [phone] Blogs Manager: Loi Irene MD #### CRP #### [address] [phone] Blogs Manager: Dg Aparicio MD Immature granulocytes/100 WBC (Bld) 0 % Normal 0 [facility] Comment on above: Performed By: #### C DP, SED #### [address] [place] [phone] Blogs Manager: Loi Irene MD #### CRP #### [address] [address] Blogs Manager: Dg Aparicio MD Lymphocytes (Bld) [#/Vol] 1.74 10*3/uL Normal 1.10-3.70 [facility] Comment on above: Performed By: #### C DP, SED #### [address] [place] [phone] Blogs Manager: Loi Irene MD #### CRP #### [address] [address] Blogs Manager: Dg Aparicio MD Lymphocytes/100 WBC (Bld) 23 % Low 24-43 [facility] Comment on above: Performed By: #### C DP, SED #### [facility] [address] [place] [address] Dr. [place] [phone] Blogs Manager: Loi Irene MD #### CRP #### [address] [place] [address] Blogs Manager: Dg Aparicio MD MCH (RBC) [Entitic mass] 29.6 pg Normal 25.2-33.5 [facility] Comment on above: Performed By: #### C DP, SED #### [facility] [address] [place], [place] [phone] Blogs Manager: Loi Irene MD #### CRP #### [address] [phone] Blogs Manager: Dg Aparicio MD MCHC (RBC) [Mass/Vol] 30.1 g/dL Normal 28.4-34.8 [facility] Comment on above: Performed By: #### C DP, SED #### [facility] [address] [place], [place] [phone] Blogs Manager: Loi Irene MD #### CRP #### [address] [phone] Blogs Manager: Dg Aparicio MD MCV (RBC) [Entitic vol] 98.4 fL Normal 82.6-102.9 [facility] Comment on above: Performed By: #### C DP, SED #### [facility] [address] [place], [place] 2563983 Blogs Manager: Loi Irene MD #### CRP #### [address] [phone] Blogs Manager: Dg Aparicio MD Monocytes (Bld) [#/Vol] 0.76 10*3/uL Normal 0.10-1.20 [facility] Comment on above: Performed By: #### C DP, SED #### [facility] [address] [place], [place] [phone] Blogs Manager: Loi Irene MD #### CRP #### [address] [address] Blogs Manager: Dg Aparicio MD Monocytes/100 WBC (Bld) 10 % Normal 3-[address] [facility] Comment on above: Performed By: #### C DP, SED #### [facility] [address] [place] [address] [place], [place] 4783983 Blogs Manager: Loi Irene MD #### CRP #### [address] [address] Blogs Manager: Dg Aparicio MD Neutrophil (Seg) 62 % Normal 36-65 [facility] Comment on above: Performed By: #### C DP, SED #### [facility] [address] [place] [address] Dr. [place] [phone] Blogs Manager: Loi Irene MD #### CRP #### [address] [address] Blogs Manager: Dg Aparicio MD NRBC Automated 0.0 per 100 WBC Normal 0.0 [facility] Comment on above: Performed By: #### C DP, SED #### [facility] [address] [place] [address] Dr. [place] [phone] Blogs Manager: Loi Irene MD #### CRP #### [address] [address] Blogs Manager: Dg Aparicio MD Platelet mean volume (Bld) [Entitic vol] 9.9 fL Normal 8.1-13.5 [facility] Comment on above: Performed By: #### C DP, SED #### [facility] [address] [place] [address] [address]. [place] [phone] Blogs Manager: Loi Irene MD #### CRP #### [address] [address] Blogs Manager: Dg Aparicio MD Platelets (Bld) [#/Vol] 344 10*3/uL Normal 138-453 [facility] Comment on above: Performed By: #### C DP, SED #### [facility] [address] [place] [address] Dr. [place] [phone] Blogs Manager: Loi Irene MD #### CRP #### [address] [place] [address] Blogs Manager: Dg Aparicio MD RBC (Bld) [#/Vol] 3.75 10*6/uL Low 3.95-5.11 [facility] Comment on above: Performed By: #### C DP, SED #### [facility] [address] [place] [address] [place] [address] Blogs Manager: Loi Irene MD #### CRP #### [address] [address] Blogs Manager: Dg Aparicio MD WBC (Bld) [#/Vol] 7.5 10*3/uL Normal 3.5-11.3 [facility] Comment on above: Performed By: #### C DP, SED #### [address] [place] [phone] Blogs Manager: Loi Irene MD #### CRP #### [address] [address] Blogs Manager: Dg Aparicio MD Auto Diff Performed NOT REPORTED Normal [facility] Comment on above: Performed By: #### C DP, SED #### [address] [place] [address] Blogs Manager: Loi Irene MD #### CRP #### [address] [address] Blogs Manager: Dg Aparicio MD Platelet Estimate NOT REPORTED Normal [facility] Comment on above: Performed By: #### C DP, SED #### [address] [place] [place] [address] Blogs Manager: Loi Irene MD #### CRP #### [address] [address] Blogs Manager: Dg Aparicio MD RBC morphology finding Nom (Bld) NOT REPORTED Normal [facility] Comment on above: Performed By: #### C DP, SED #### [facility] [address] [place], [place] [phone] Blogs Manager: Loi Irene MD #### CRP #### [facility] [address] [place] [address] Blogs Manager: Dg Aparicio MD WBC Morphology NOT REPORTED Normal [facility] Comment on above: Performed By: #### C DP, SED #### [facility] [address] [place], [place] [phone] Blogs Manager: Loi Irene MD #### CRP #### [address] [place] [address] Blogs Manager: Dg Aparicio MD Sedimentation Rateon 021 Sedimentation Rate 51 mm High 0-20 [facility] Comment on above: Performed By: #### C DP, SED #### [facility] [address] [place], [place] [phone] Blogs Manager: Loi Irene MD #### CRP #### [address] [address] Blogs Manager: Dg Aparicio MD Interpretation and review of laboratory results Abnormal [facility] [place] Work Phone: Sed Rate 51 mm High 0 - 20 mm [facility] Work Phone: Lipid Panelon 10-30-2020 Cholesterol [Mass/Vol] 147 mg/dL <200 [place], [place] Comment on above: Cholesterol Guidelines: <200 Desirable 200-240 Borderline >240 Undesirable Cholesterol in HDL [Mass/Vol] 50 mg/dL >40 [place], [place] Comment on above: HDL Guidelines: <40 Undesirable 40-59 Borderline >59 Desirable Cholesterol in LDL [Mass/Vol] 64 mg/dL 0 - 130 mg/dL [place], [place] Comment on above: LDL Guidelines: <100 Desirable 100-129 Near to/above Desirable 130-159 Borderline >159 Undesirable Direct (measured) LDL and calculated LDL are not interchangeable tests. Cholesterol in VLDL [Mass/Vol] NOT REPORTED High 1 - 30 mg/dL [place], [place] Cholesterol.total/Vani sterol in HDL [Mass ratio] 2.9 {ratio} <5 [place], [place] Interpretation and review of laboratory results Abnormal [place], [place] Triglyceride [Mass/Vol] 166 mg/dL High <150 M [place], [place] Comment on above: Triglyceride Guidelines: <150 Desirable 150-199 Borderline 200-499 High >499 Very high Based on AHA Guidelines for fasting triglyceride, June 2012. Lipid Profileon 10-30-2020 Cholesterol [Mass/Vol] 147 mg/dL Normal <200 [facility] Comment on above: Result Comment: Cholesterol Guidelines: <200 Desirable 200-240 Borderline >240 Undesirable Performed By: #### L IPR #### [facility] [address] [place] [address] [id number] Blogs Manager: Dg Aparicio MD Cholesterol in HDL [Mass/Vol] 50 mg/dL Normal >40 [facility] Comment on above: Result Comment: HDL Guidelines: <40 Undesirable 40-59 Borderline >59 Desirable Performed By: #### L IPR #### [facility] [address] [place] [address] [phone] Blogs Manager: Dg Aapricio MD Cholesterol in LDL [Mass/Vol] 64 mg/dL Normal 0-130 [facility] Comment on above: Result Comment: LDL Guidelines: <100 Desirable 100-129 Near to/above Desirable 130-159 Borderline >159 Undesirable Direct (measured) LDL and calculated LDL are not interchangeable tests. Performed By: #### L IPR #### [facility] [address] [place] [address] Blogs Manager: Dg Aparicio MD Cholesterol.total/Vani sterol in HDL [Mass ratio] 2.9 {ratio} Normal <5 [facility] Comment on above: Performed By: #### L IPR #### [facility] [address] [place] [address], [place] [address] Blogs Manager: Dg Aparicio MD Triglyceride [Mass/Vol] 166 mg/dL High <[address] [facility] Comment on above: Result Comment: Triglyceride Guidelines: <150 Desirable 150-199 Borderline 200-499 High >499 Very high Based on AHA Guidelines for fasting triglyceride, June 2012. Performed By: #### L IPR #### [address] [address] Blogs Manager: Dg Aparicio MD Cholesterol,VLDL NOT REPORTED Normal 10-26 [facility] Comment on above: Performed By: #### L IPR #### [address] [address] Blogs Manager: Dg Aparicio MD C-Reactive Proteinon CRP [Mass/Vol] 51.2 mg/L High 0.0-5.0 [facility] Comment on above: Performed By: #### C DP #### [facility] [address] [place] [address] [place] [address] Blogs Manager: Loi Irene MD #### CRP #### [address] [address] Blogs Manager: Dg Aparicio MD CRP [Mass/Vol] 51.2 mg/L High 0 - 5 mg/L [place], [place] Interpretation and review of laboratory results Abnormal [place], [place] CBCon 10-23-2020 Erythrocyte distribution width (RBC) [Ratio] 16.5 % High 11.8-14.4 [facility] Comment on above: Performed By: #### C DP #### [facility] [address] [place] [address] Blogs Manager: Loi Irene MD #### CRP #### [address] [address] Blogs Manager: Dg Aparicio MD Hematocrit (Bld) [Volume fraction] 32.7 % Low 36.3-47.1 [facility] Comment on above: Performed By: #### C DP #### [facility] [address] [place] [address] [place] [address] Blogs Manager: Loi Irene MD #### CRP #### [address] [phone] Blogs Manager: Dg Aparicio MD Hemoglobin (Bld) [Mass/Vol] 10.0 g/dL Low 11.9-15.1 [facility] Comment on above: Performed By: #### C DP #### [facility] [address] [place] [address] Dr. [place] [phone] Blogs Manager: Loi Irene MD #### CRP #### [address] [phone] Blogs Manager: Dg Aparicio MD MCH (RBC) [Entitic mass] 29.0 pg Normal 25.2-33.5 [facility] Comment on above: Performed By: #### C DP #### [facility] [address] [place] [address] Dr. [place] [phone] Blogs Manager: Loi Irene MD #### CRP #### [address] [phone] Blogs Manager: Dg Aparicio MD MCHC (RBC) [Mass/Vol] 30.6 g/dL Normal 28.4-34.8 [facility] Comment on above: Performed By: #### C DP #### [facility] [address] [place] [address] Dr. [place], [place] [phone] Blogs Manager: Loi Irene MD #### CRP #### [address] [address] Blogs Manager: Dg Aparicio MD MCV (RBC) [Entitic vol] 94.8 fL Normal 82.6-102.9 [facility] Comment on above: Performed By: #### C DP #### [address] [place], [place] [phone] Blogs Manager: Loi Irene MD #### CRP #### [address] [id number] Blogs Manager: Dg Aparicio MD NRBC Automated 0.0 per 100 WBC Normal 0.0 [facility] Comment on above: Performed By: #### C DP #### [address] [place], [place] [phone] Blogs Manager: Loi Irene MD #### CRP #### [address] [address] Blogs Manager: Dg Aparicio MD Platelet mean volume (Bld) [Entitic vol] 9.6 fL Normal 8.1-13.5 [facility] Comment on above: Performed By: #### C DP #### [address] [place] [phone] Blogs Manager: Loi Irene MD #### CRP #### [address] [address] Blogs Manager: Dg Aparicio MD Platelets (Bld) [#/Vol] 478 10*3/uL High 138-453 [facility] Comment on above: Performed By: #### C DP #### [facility] [address] [place] [address] Dr. [place] [phone] Blogs Manager: Loi Irene MD #### CRP #### [address] [address] Blogs Manager: Dg Aparicio MD RBC (Bld) [#/Vol] 3.45 10*6/uL Low 3.95-5.11 [facility] Comment on above: Performed By: #### C DP #### [address] [place] [place] [address] Blogs Manager: Loi Irene MD #### CRP #### [facility] [address] [place] [address] Blogs Manager: Dg Aparicio MD WBC (Bld) [#/Vol] 8.2 10*3/uL Normal 3.5-11.3 [facility] Comment on above: Performed By: #### C DP #### [facility] [address] [place] [address] Blogs Manager: Loi Irene MD #### CRP #### [facility] [address] [place] [address] Blogs Manager: Dg Aparicio MD Erythrocyte distribution width (RBC) [Ratio] 16.5 % High 11.8 - 14.4 % [place] Hematocrit (Bld) [Volume fraction] 32.7 % Low 36.3 - 47.1 % [place] Hemoglobin (Bld) [Mass/Vol] 10.0 g/dL Low 11.9 - 15.1 g/dL [place] Interpretation and review of laboratory results Abnormal [place] MCH (RBC) [Entitic mass] 29.0 pg 25.2 - 33.5 pg [place] MCHC (RBC) [Mass/Vol] 30.6 g/dL 28.4 - 34.8 g/dL [place] MCV (RBC) [Entitic vol] 94.8 fL 82.6 - 102.9 fL [place] Platelet mean volume (Bld) [Entitic vol] 9.6 fL 8.1 - 13.5 fL [place] Platelets (Bld) [#/Vol] 478 10*3/uL High [place] RBC (Bld) [#/Vol] 3.45 10*6/uL Low 3.95 - 5.1 1 m/uL [place] WBC (Bld) [#/Vol] 8.2 10*3/uL [place] WBC (Bld) [#/Vol] 0.0 10*3/uL 0.0 per 10 0 WBC [place] Comp Metabolic Profon 2020 (cont.) Normal [facility] Comment on above: Result Comment: Aver age GFR for 70 or more years old: 75 mL/min/1.73sq m Chronic Kidney Disease: <60 mL/min/1.73sq m Kidney failure: <15 mL/min/1.73sq m eGFR calculated using average adult body mass. Additional eGFR calculator available at: http://www.trueEX/multiple_crcl_2011.htm Performed By: #### C DP #### [facility] [address] [place] [address] [place] [address] Blogs Manager: Loi Irene MD #### CRP #### [address] [id number] Blogs Manager: Dg Aparicio MD Albumin [Mass/Vol] 3.0 g/dL Low 3.5-5.2 [facility] Comment on above: Performed By: #### C DP #### [facility] [address] [place] [address] [place] [address] Blogs Manager: Loi Irene MD #### CRP #### [address] [address] Blogs Manager: Dg Aparicio MD Albumin/Glob Ratio 0.8 Low 1.0-2.5 [facility] Comment on above: Performed By: #### C DP #### [facility] [address] [place] [address] Blogs Manager: Loi Irene MD #### CRP #### [address] [address] Blogs Manager: Dg Aparicio MD Alkaline Phos 105 U/L High 35-104 [facility] Comment on above: Performed By: #### C DP #### [facility] [address] [place], [place] [id number] Blogs Manager: Loi Irene MD #### CRP #### [facility] [address] [place] [address] Blogs Manager: Dg Aparicio MD ALT [Catalytic activity/Vol] 11 U/L Normal 5-33 [facility] Comment on above: Performed By: #### C DP #### [facility] [address] [place] [address] Blogs Manager: Loi Irene MD #### CRP #### [address] [address] Blogs Manager: Dg Aparicio MD Anion gap [Moles/Vol] 11 mmol/L Normal 9-17 [facility] Comment on above: Performed By: #### C DP #### [address] [place] [place] [address] Blogs Manager: Loi Irene MD #### CRP #### [address] [address] Blogs Manager: Dg Aparicio MD AST [Catalytic activity/Vol] 14 U/L Normal <32 [facility] Comment on above: Performed By: #### C DP #### [facility] [address] [place] [address] [place] [address] Blogs Manager: Loi Irene MD #### CRP #### [address] [address] Blogs Manager: Dg Aparicio MD Bilirubin [Mass/Vol] 0.24 mg/dL Low 0.3-1.2 [facility] Comment on above: Performed By: #### C DP #### [facility] [address] [place] [address] [place], [place] [id number] Blogs Manager: Loi Irene MD #### CRP #### [address] [address] Blogs Manager: Dg Aparicio MD BUN/CRE Ratio 22 High 9-20 [facility] Comment on above: Performed By: #### C DP #### [facility] [address] [place], [place] [id number] Blogs Manager: Loi Irene MD #### CRP #### [address] [address] Blogs Manager: Dg Aparicio MD Calcium [Mass/Vol] 8.9 mg/dL Normal 8.6-10.4 [facility] Comment on above: Performed By: #### C DP #### [address] [place], [place] [id number] Blogs Manager: Loi Irene MD #### CRP #### [address] [address] Blogs Manager: Dg Aparicio MD Chloride [Moles/Vol] 99 mmol/L Normal 98-107 [facility] Comment on above: Performed By: #### C DP #### [address] [place] [place] [address] Blogs Manager: Loi Irene MD #### CRP #### [address] [address] Blogs Manager: Dg Aparicio MD CO2 [Moles/Vol] 28 mmol/L Normal 20-31 [facility] Comment on above: Performed By: #### C DP #### [facility] [address] [place], [place] [id number] Blogs Manager: Loi Irene MD #### CRP #### [address] [address] Blogs Manager: Dg Aparicio MD Creatinine [Mass/Vol] 1.27 mg/dL High 0.50-0.90 [facility] Comment on above: Performed By: #### C DP #### [facility] [address] [place], [place] [id number] Blogs Manager: Loi Irene MD #### CRP #### [address] [address] Blogs Manager: Dg Aparicio MD GFR, Amer 49 mL/min Low >60 [facility] Comment on above: Performed By: #### C DP #### [facility] [address] [place] [address] [address], [place] [id number] Blogs Manager: Loi Irene MD #### CRP #### [address] [address] Blogs Manager: Dg Aparicio MD GFR,non Amer 40 mL/min Low >60 [facility] Comment on above: Performed By: #### C DP #### [facility] [address] [place] [address] [place], [place] [phone] Blogs Manager: Loi Irene MD #### CRP #### [address] [address] Blogs Manager: Dg Aparicio MD Glucose [Mass/Vol] 159 mg/dL High 70-99 [facility] Comment on above: Performed By: #### C DP #### [facility] [address] [place] [address] [place] [address] Blogs Manager: Loi Irene MD #### CRP #### [address] [address] Blogs Manager: Dg Aparicio MD Potassium [Moles/Vol] 3.3 mmol/L Low 3.7-5.3 [facility] Comment on above: Performed By: #### C DP #### [facility] [address] [place] [address] [place], [place] [id number] Blogs Manager: Loi Irene MD #### CRP #### [address] [address] Blogs Manager: Dg Aparicio MD Protein [Mass/Vol] 6.7 g/dL Normal 6.4-8.3 [facility] Comment on above: Performed By: #### C DP #### [address] [place], [place] [address] Blogs Manager: Loi Irene MD #### CRP #### [address] [address] Blogs Manager: Dg Aparicio MD Sodium [Moles/Vol] 138 mmol/L Normal 135-144 [facility] Comment on above: Performed By: #### C DP #### [address] [place], [place] [id number] Blogs Manager: Loi Irene MD #### CRP #### [address] [address] Blogs Manager: Dg Aparicio MD Staging: Normal [facility] Comment on above: Result Comment: Stag e 1: Some kidney damage normal GFR Stage 2: Mild kidney damage GFR 60-89 Stage 3: Moderate kidney damage GFR 30-59 Stage 4: Severe kidney damage GFR 15-29 Stage 5: Severe kidney damage GFR <15 ESRD - chronic treatment by dialysis or transplant Performed By: #### C DP #### [address] [place], [place] [phone] Blogs Manager: Loi Irene MD #### CRP #### [address] [address] Blogs Manager: Dg Aparicio MD Urea nitrogen [Mass/Vol] 28 mg/dL High 8-23 [facility] Comment on above: Performed By: #### C DP #### [address] [place] [place] [address] Blogs Manager: Loi Irene MD #### CRP #### [facility] [address] [place] [address] Blogs Manager: Dg Aparicio MD Comprehensive Metabolic Pane [facility] 10-23-2020 Albumin [Mass/Vol] 3 g/dL Low 3.5 - 5.2 g/dL [place] Albumin/Globulin [Mass ratio] 0.8 {ratio} Low [place] ALP [Catalytic activity/Vol] 105 U/L High 35 - 104 U/L [place] ALT [Catalytic activity/Vol] 11 U/L 5 - 33 U/L [place] Anion gap [Moles/Vol] 11 mmol/L 9 - 17 mmol/L [place] AST [Catalytic activity/Vol] 14 U/L <32 [place] Bilirubin Ql (U) 0.24 mg/dL Low 0.3 - 1.2 mg/dL [place] Bun/Cre Ratio 22 High [place] Calcium [Mass/Vol] 8.9 mg/dL 8.6 - 10. 4 mg/dL [place] Chloride [Moles/Vol] 99 mmol/L 98 - 10 7 mmol/L [place] CO2 [Moles/Vol] 28 mmol/L 20 - 31 mmol/L [place] Creatinine [Mass/Vol] 1.27 mg/dL High 0.5 - 0.9 mg/dL [place] GFR 49 mL/min Low >60 [place] GFR Non- 40 mL/min Low >60 [place] Glucose [Mass/Vol] 159 mg/dL High 70 - 99 mg/dL [place] Interpretation and review of laboratory results Abnormal [place] Potassium [Moles/Vol] 3.3 mmol/L Low 3.7 - 5.3 mmol/L [place] Protein [Mass/Vol] 6.7 g/dL 6.4 - 8.3 g/dL [place] Sodium [Moles/Vol] 138 mmol/L 135 - 144 mmol/L [place] Urea nitrogen [Mass/Vol] 28 mg/dL High 8 - 23 mg/dL [place] Metabolic Panelon 10-23-2020 GFR/1.73 sq M predicted among non-blacks MDRD (S/P/Bld) [Vol rate/Area] [place] Comment on above: Average GFR for 70 o r more years old: 75 mL/min/1.73sq m Chronic Kidney Disease: <60 mL/min/1.73sq m Kidney failure: <15 mL/min/1.73sq m eGFR calculated using average adult body mass. Additional eGFR calculator available at: http://www.trueEX/multiple_crcl_2012.htm Stage 1: Some kidney damage normal GFR Stage 2: Mild kidney damage GFR 60-89 Stage 3: Moderate kidney damage GFR 30-59 Stage 4: Severe kidney damage GFR 15-29 Stage 5: Severe kidney damage GFR <15 ESRD - chronic treatment by dialysis or transplant Sedimentation Rateon 021 Sedimentation Rate 101 mm High 0-20 [facility] Comment on above: Performed By: #### C DP #### [facility] [address] [place] [address] Blogs Manager: Loi Irene MD #### CRP #### [address] [place] [address] Blogs Manager: Dg Aparicio MD Interpretation and review of laboratory results Abnormal [place] Sed Rate 101 mm High 0 - 20 mm [place] C-Reactive Proteinon 020 CRP [Mass/Vol] 33.8 mg/L High 0 - 5 mg/L [place] Interpretation and review of laboratory results Abnormal [place] CBCon 09-26-2020 Erythrocyte distribution width (RBC) [Ratio] 14.3 % 11.8 - 14.4 % [place] Hematocrit (Bld) [Volume fraction] 38.8 % 36.3 - 47.1 % [place] Hemoglobin (Bld) [Mass/Vol] 11.8 g/dL Low 11.9 - 15.1 g/dL [place] Interpretation and review of laboratory results Abnormal [place] MCH (RBC) [Entitic mass] 28.5 pg 25.2 - 33.5 pg [place] MCHC (RBC) [Mass/Vol] 30.4 g/dL 28.4 - 34.8 g/dL [place] MCV (RBC) [Entitic vol] 93.7 fL 82.6 - 102.9 fL [place] Platelet mean volume (Bld) [Entitic vol] 9.9 fL 8.1 - 13.5 fL [place] Platelets (Bld) [#/Vol] 230 10*3/uL [place] RBC (Bld) [#/Vol] 4.14 10*6/uL 3.95 - 5.1 1 m/uL [place] WBC (Bld) [#/Vol] 6.9 10*3/uL [place] WBC (Bld) [#/Vol] 0.0 10*3/uL 0.0 per 10 0 WBC [place] Comprehensive Metabolic Pane [facility] 09-26-2020 Albumin [Mass/Vol] 3.4 g/dL Low 3.5 - 5.2 g/dL [place] Albumin/Globulin [Mass ratio] 1.0 {ratio} [place] ALP [Catalytic activity/Vol] 131 U/L High 35 - 104 U/L [place] ALT [Catalytic activity/Vol] 23 U/L 5 - 33 U/L [place] Anion gap [Moles/Vol] 13 mmol/L 9 - 17 mmol/L [place] AST [Catalytic activity/Vol] 21 U/L <32 [place] Bilirubin Ql (U) 0.36 mg/dL 0.3 - 1.2 mg/dL [place] Bun/Cre Ratio 24 High [place] Calcium [Mass/Vol] 8.7 mg/dL 8.6 - 10. 4 mg/dL [place] Chloride [Moles/Vol] 96 mmol/L Low 98 - 10 7 mmol/L [place] CO2 [Moles/Vol] 28 mmol/L 20 - 31 mmol/L [place] Creatinine [Mass/Vol] 1.27 mg/dL High 0.5 - 0.9 mg/dL [place] GFR 49 mL/min Low >60 [place] GFR Non- 40 mL/min Low >60 [place] Glucose [Mass/Vol] 138 mg/dL High 70 - 99 mg/dL [place] Interpretation and review of laboratory results Abnormal [place] Potassium [Moles/Vol] 3.4 mmol/L Low 3.7 - 5.3 mmol/L [place] Protein [Mass/Vol] 6.7 g/dL 6.4 - 8.3 g/dL [place] Sodium [Moles/Vol] 137 mmol/L 135 - 144 mmol/L [place] Urea nitrogen [Mass/Vol] 31 mg/dL High 8 - 23 mg/dL [place] Magnesiumon 09-26-2020 Magnesium [Mass/Vol] 2.1 mg/dL 1.6 - 2 .6 mg/dL [place] Metabolic Panelon 09-26-2020 GFR/1.73 sq M predicted among non-blacks MDRD (S/P/Bld) [Vol rate/Area] [place] Comment on above: Average GFR for 70 o r more years old: 75 mL/min/1.73sq m Chronic Kidney Disease: <60 mL/min/1.73sq m Kidney failure: <15 mL/min/1.73sq m eGFR calculated using average adult body mass. Additional eGFR calculator available at: http://www.[employer].co/multiple_crcl_2012.htm Stage 1: Some kidney damage normal GFR Stage 2: Mild kidney damage GFR 60-89 Stage 3: Moderate kidney damage GFR 30-59 Stage 4: Severe kidney damage GFR 15-29 Stage 5: Severe kidney damage GFR <15 ESRD - chronic treatment by dialysis or transplant Sedimentation Rateon 020 Interpretation and review of laboratory results Abnormal [place] Sed Rate 53 mm High 0 - 20 mm [place] C-Reactive Proteinon CRP [Mass/Vol] 43.7 mg/L High 0 - 5 mg/L [place] Interpretation and review of laboratory results Abnormal [place] CBCon 09-18-2020 Erythrocyte distribution width (RBC) [Ratio] 14.0 % 11.8 - 14.4 % [place] Hematocrit (Bld) [Volume fraction] 37.2 % 36.3 - 47.1 % [place] Hemoglobin (Bld) [Mass/Vol] 11.4 g/dL Low 11.9 - 15.1 g/dL [place] Interpretation and review of laboratory results Abnormal [place] MCH (RBC) [Entitic mass] 29.2 pg 25.2 - 33.5 pg [place] MCHC (RBC) [Mass/Vol] 30.6 g/dL 28.4 - 34.8 g/dL [place] MCV (RBC) [Entitic vol] 95.4 fL 82.6 - 102.9 fL [place] Platelet mean volume (Bld) [Entitic vol] 10.6 fL 8.1 - 13.5 fL [place] Platelets (Bld) [#/Vol] 254 10*3/uL [place] RBC (Bld) [#/Vol] 3.90 10*6/uL Low 3.95 - 5.1 1 m/uL [place] WBC (Bld) [#/Vol] 8.3 10*3/uL [place] WBC (Bld) [#/Vol] 0.0 10*3/uL 0.0 per 10 0 WBC [place] Comprehensive Metabolic Pane [facility] 09-18-2020 Albumin [Mass/Vol] 3.3 g/dL Low 3.5 - 5.2 g/dL [place] Albumin/Globulin [Mass ratio] 1.1 {ratio} [place] ALP [Catalytic activity/Vol] 137 U/L High 35 - 104 U/L [place] ALT [Catalytic activity/Vol] 14 U/L 5 - 33 U/L [place] Anion gap [Moles/Vol] 8 mmol/L Low 9 - 17 mmol/L [place] AST [Catalytic activity/Vol] 12 U/L <32 [place] Bilirubin Ql (U) 0.27 mg/dL Low 0.3 - 1.2 mg/dL [place] Bun/Cre Ratio 30 High [place] Calcium [Mass/Vol] 8.9 mg/dL 8.6 - 10. 4 mg/dL [place] Chloride [Moles/Vol] 95 mmol/L Low 98 - 10 7 mmol/L [place] CO2 [Moles/Vol] 30 mmol/L 20 - 31 mmol/L [place] Creatinine [Mass/Vol] 1.21 mg/dL High 0.5 - 0.9 mg/dL [place] GFR 52 mL/min Low >60 [place] GFR Non- 42 mL/min Low >60 [place] Glucose [Mass/Vol] 206 mg/dL High 70 - 99 mg/dL [place] Interpretation and review of laboratory results Abnormal [place] Potassium [Moles/Vol] 2.9 mmol/L Critically low 3.7 - 5.3 mmol/L [place] Protein [Mass/Vol] 6.4 g/dL 6.4 - 8.3 g/dL [place] Sodium [Moles/Vol] 133 mmol/L Low 135 - 144 mmol/L [place] Urea nitrogen [Mass/Vol] 36 mg/dL High 8 - 23 mg/dL [place] Metabolic Panelon 09-18-2020 GFR/1.73 sq M predicted among non-blacks MDRD (S/P/Bld) [Vol rate/Area] [place] Comment on above: Average GFR for 70 o r more years old: 75 mL/min/1.73sq m Chronic Kidney Disease: <60 mL/min/1.73sq m Kidney failure: <15 mL/min/1.73sq m eGFR calculated using average adult body mass. Additional eGFR calculator available at: http://www.trueEX/multiple_crcl_2012.htm Stage 1: Some kidney damage normal GFR Stage 2: Mild kidney damage GFR 60-89 Stage 3: Moderate kidney damage GFR 30-59 Stage 4: Severe kidney damage GFR 15-29 Stage 5: Severe kidney damage GFR <15 ESRD - chronic treatment by dialysis or transplant Sedimentation Rateon 020 Interpretation and review of laboratory results Abnormal [place] Sed Rate 37 mm High 0 - 20 mm [place] C-Reactive Proteinon CRP [Mass/Vol] 17.9 mg/L High 0 - 5 mg/L [place] Interpretation and review of laboratory results Abnormal [place] CBCon 09-11-2020 Erythrocyte distribution width (RBC) [Ratio] 13.8 % 11.8 - 14.4 % [place] Hematocrit (Bld) [Volume fraction] 37.9 % 36.3 - 47.1 % [place] Hemoglobin (Bld) [Mass/Vol] 11.4 g/dL Low 11.9 - 15.1 g/dL [place] Interpretation and review of laboratory results Abnormal [place] MCH (RBC) [Entitic mass] 28.4 pg 25.2 - 33.5 pg [place] MCHC (RBC) [Mass/Vol] 30.1 g/dL 28.4 - 34.8 g/dL [place] MCV (RBC) [Entitic vol] 94.5 fL 82.6 - 102.9 fL [place] Platelet mean volume (Bld) [Entitic vol] 10.7 fL 8.1 - 13.5 fL [place] Platelets (Bld) [#/Vol] 269 10*3/uL [place] RBC (Bld) [#/Vol] 4.01 10*6/uL 3.95 - 5.1 1 m/uL [place] WBC (Bld) [#/Vol] 0.0 10*3/uL 0.0 per 10 0 WBC [place] WBC (Bld) [#/Vol] 7.1 10*3/uL [place] Comprehensive Metabolic Pane [facility] 09-11-2020 Albumin [Mass/Vol] 3.8 g/dL 3.5 - 5.2 g/dL [place] Albumin/Globulin [Mass ratio] 1.7 {ratio} [place] ALP [Catalytic activity/Vol] 145 U/L High 35 - 104 U/L [place] ALT [Catalytic activity/Vol] 14 U/L 5 - 33 U/L [place] Anion gap [Moles/Vol] 13 mmol/L 9 - 17 mmol/L [place] AST [Catalytic activity/Vol] 12 U/L <32 [place] Bilirubin Ql (U) 0.28 mg/dL Low 0.3 - 1.2 mg/dL [place] Bun/Cre Ratio 35 High [place] Calcium [Mass/Vol] 9.3 mg/dL 8.6 - 10. 4 mg/dL [place] Chloride [Moles/Vol] 98 mmol/L 98 - 10 7 mmol/L [place] CO2 [Moles/Vol] 28 mmol/L 20 - 31 mmol/L [place] Creatinine [Mass/Vol] 1.33 mg/dL High 0.5 - 0.9 mg/dL [place] GFR 46 mL/min Low >60 [place] GFR Non- 38 mL/min Low >60 [place] Glucose [Mass/Vol] 150 mg/dL High 70 - 99 mg/dL [place] Interpretation and review of laboratory results Abnormal [place] Potassium [Moles/Vol] 3.0 mmol/L Low 3.7 - 5.3 mmol/L [place] Protein [Mass/Vol] 6.1 g/dL Low 6.4 - 8.3 g/dL [place] Sodium [Moles/Vol] 139 mmol/L 135 - 144 mmol/L [place] Urea nitrogen [Mass/Vol] 46 mg/dL High 8 - 23 mg/dL [place] Metabolic Panelon 09-11-2020 GFR/1.73 sq M predicted among non-blacks MDRD (S/P/Bld) [Vol rate/Area] [place] Comment on above: Average GFR for 70 o r more years old: 75 mL/min/1.73sq m Chronic Kidney Disease: <60 mL/min/1.73sq m Kidney failure: <15 mL/min/1.73sq m eGFR calculated using average adult body mass. Additional eGFR calculator available at: http://www.trueEX/multiple_crcl_2012.htm Stage 1: Some kidney damage normal GFR Stage 2: Mild kidney damage GFR 60-89 Stage 3: Moderate kidney damage GFR 30-59 Stage 4: Severe kidney damage GFR 15-29 Stage 5: Severe kidney damage GFR <15 ESRD - chronic treatment by dialysis or transplant Sedimentation Rateon 020 Interpretation and review of laboratory results Abnormal [place] Sed Rate 34 mm High 0 - 20 mm [place] C-Reactive Proteinon 020 CRP [Mass/Vol] 11.1 mg/L High 0 - 5 mg/L [place] Interpretation and review of laboratory results Abnormal [place] Comprehensive Metabolic Pane [facility] 09-06-2020 Albumin [Mass/Vol] 3.8 g/dL 3.5 - 5.2 g/dL [place] Albumin/Globulin [Mass ratio] 1.2 {ratio} [place] ALP [Catalytic activity/Vol] 149 U/L High 35 - 104 U/L [place] ALT [Catalytic activity/Vol] 18 U/L 5 - 33 U/L [place] Anion gap [Moles/Vol] 13 mmol/L 9 - 17 mmol/L [place] AST [Catalytic activity/Vol] 18 U/L <32 [place] Bilirubin Ql (U) 0.28 mg/dL Low 0.3 - 1.2 mg/dL [place] Bun/Cre Ratio 33 High [place] Calcium [Mass/Vol] 9.8 mg/dL 8.6 - 10. 4 mg/dL [place] Chloride [Moles/Vol] 97 mmol/L Low 98 - 10 7 mmol/L [place] CO2 [Moles/Vol] 28 mmol/L 20 - 31 mmol/L [place] Creatinine [Mass/Vol] 1.33 mg/dL High 0.5 - 0.9 mg/dL [place] GFR 46 mL/min Low >60 [place] GFR Non- 38 mL/min Low >60 [place] Glucose [Mass/Vol] 209 mg/dL High 70 - 99 mg/dL [place] Interpretation and review of laboratory results Abnormal [place] Potassium [Moles/Vol] 3.0 mmol/L Low 3.7 - 5.3 mmol/L [place] Protein [Mass/Vol] 7.0 g/dL 6.4 - 8.3 g/dL [place] Sodium [Moles/Vol] 138 mmol/L 135 - 144 mmol/L [place] Urea nitrogen [Mass/Vol] 44 mg/dL High 8 - 23 mg/dL [place] Metabolic Panelon 09-06-2020 GFR/1.73 sq M predicted among non-blacks MDRD (S/P/Bld) [Vol rate/Area] [place] Comment on above: Stage 1: Some [...] body mass. Additional eGFR calculator available at: http://www.[employer].co/multiple_crcl_2012.htm CBCon 09-05-2020 Erythrocyte distribution width (RBC) [Ratio] 13.9 % 11.8 - 14.4 % [place] Hematocrit (Bld) [Volume fraction] 39.5 % 36.3 - 47.1 % [place] Hemoglobin (Bld) [Mass/Vol] 12.0 g/dL 11.9 - 15.1 g/dL [place] MCH (RBC) [Entitic mass] 29.0 pg 25.2 - 33.5 pg [place] MCHC (RBC) [Mass/Vol] 30.4 g/dL 28.4 - 34.8 g/dL [place] MCV (RBC) [Entitic vol] 95.4 fL 82.6 - 102.9 fL [place] Platelet mean volume (Bld) [Entitic vol] 10.3 fL 8.1 - 13.5 fL [place] Platelets (Bld) [#/Vol] 295 10*3/uL [place] RBC (Bld) [#/Vol] 4.14 10*6/uL 3.95 - 5.1 1 m/uL [place] WBC (Bld) [#/Vol] 7.8 10*3/uL [place] WBC (Bld) [#/Vol] 0.0 10*3/uL 0.0 per 10 0 WBC [place] Comprehensive Metabolic Pane [facility] 09-05-2020 Albumin [Mass/Vol] 3.9 g/dL 3.5 - 5.2 g/dL [place] Albumin/Globulin [Mass ratio] 1.3 {ratio} [place] ALP [Catalytic activity/Vol] 143 U/L High 35 - 104 U/L [place] ALT [Catalytic activity/Vol] 15 U/L 5 - 33 U/L [place] Anion gap [Moles/Vol] 12 mmol/L 9 - 17 mmol/L [place] AST [Catalytic activity/Vol] 17 U/L <32 [place] Bilirubin Ql (U) 0.32 mg/dL 0.3 - 1.2 mg/dL [place] Bun/Cre Ratio 39 High [place] Calcium [Mass/Vol] 9.5 mg/dL 8.6 - 10. 4 mg/dL [place] Chloride [Moles/Vol] 100 mmol/L 98 - 10 7 mmol/L [place] CO2 [Moles/Vol] 29 mmol/L 20 - 31 mmol/L [place] Creatinine [Mass/Vol] 1.29 mg/dL High 0.5 - 0.9 mg/dL [place] GFR 48 mL/min Low >60 [place] GFR Non- 39 mL/min Low >60 [place] Glucose [Mass/Vol] 191 mg/dL High 70 - 99 mg/dL [place] Interpretation and review of laboratory results Abnormal [place] Potassium [Moles/Vol] 3.3 mmol/L Low 3.7 - 5.3 mmol/L [place] Protein [Mass/Vol] 7.0 g/dL 6.4 - 8.3 g/dL [place] Sodium [Moles/Vol] 141 mmol/L 135 - 144 mmol/L [place] Urea nitrogen [Mass/Vol] 50 mg/dL High 8 - 23 mg/dL [place] Metabolic Panelon 09-05-2020 GFR/1.73 sq M predicted among non-blacks MDRD (S/P/Bld) [Vol rate/Area] [place] Comment on above: Stage 1: Some [...] body mass. Additional eGFR calculator available at: http://www.[employer].co/multiple_crcl_2012.htm Sedimentation Rateon 020 Interpretation and review of laboratory results Abnormal [place], [place] Sed Rate 38 mm High 0 - 20 mm [place] C-Reactive Proteinon CRP [Mass/Vol] 9.3 mg/L High 0 - 5 mg/L [place] Interpretation and review of laboratory results Abnormal [place], [place] CBCon 08-28-2020 Erythrocyte distribution width (RBC) [Ratio] 13.5 % 11.8 - 14.4 % [place] Hematocrit (Bld) [Volume fraction] 37.9 % 36.3 - 47.1 % [place] Hemoglobin (Bld) [Mass/Vol] 11.9 g/dL 11.9 - 15.1 g/dL [place] MCH (RBC) [Entitic mass] 29.3 pg 25.2 - 33.5 pg [place] MCHC (RBC) [Mass/Vol] 31.4 g/dL 28.4 - 34.8 g/dL [place] MCV (RBC) [Entitic vol] 93.3 fL 82.6 - 102.9 fL [place] Platelet mean volume (Bld) [Entitic vol] 10.1 fL 8.1 - 13.5 fL [place] Platelets (Bld) [#/Vol] 303 10*3/uL [place] RBC (Bld) [#/Vol] 4.06 10*6/uL 3.95 - 5.1 1 m/uL [place] WBC (Bld) [#/Vol] 6.9 10*3/uL [place] WBC (Bld) [#/Vol] 0.0 10*3/uL 0.0 per 10 0 WBC [place] Comprehensive Metabolic Pane riddhi 08-28-2020 Albumin [Mass/Vol] 3.5 g/dL 3.5 - 5.2 g/dL [place] Albumin/Globulin [Mass ratio] 1.2 {ratio} [place] ALP [Catalytic activity/Vol] 134 U/L High 35 - 104 U/L [place] ALT [Catalytic activity/Vol] 12 U/L 5 - 33 U/L [place] Anion gap [Moles/Vol] 11 mmol/L 9 - 17 mmol/L [place] AST [Catalytic activity/Vol] 14 U/L <32 [place] Bilirubin Ql (U) 0.22 mg/dL Low 0.3 - 1.2 mg/dL [place] Bun/Cre Ratio 38 High [place] Calcium [Mass/Vol] 9.1 mg/dL 8.6 - 10. 4 mg/dL [place] Chloride [Moles/Vol] 105 mmol/L 98 - 10 7 mmol/L [place] CO2 [Moles/Vol] 27 mmol/L 20 - 31 mmol/L [place] Creatinine [Mass/Vol] 1.13 mg/dL High 0.5 - 0.9 mg/dL [place] GFR 56 mL/min Low >60 [place] GFR Non- 46 mL/min Low >60 [place] Glucose [Mass/Vol] 174 mg/dL High 70 - 99 mg/dL [place] Interpretation and review of laboratory results Abnormal [place] Potassium [Moles/Vol] 3.5 mmol/L Low 3.7 - 5.3 mmol/L [place] Protein [Mass/Vol] 6.4 g/dL 6.4 - 8.3 g/dL [place] Sodium [Moles/Vol] 143 mmol/L 135 - 144 mmol/L [place] Urea nitrogen [Mass/Vol] 43 mg/dL High 8 - 23 mg/dL [place] Metabolic Panelon 08-28-2020 GFR/1.73 sq M predicted among non-blacks MDRD (S/P/Bld) [Vol rate/Area] [place] Comment on above: Average GFR for 70 o r more years old: 75 mL/min/1.73sq m Chronic Kidney Disease: <60 mL/min/1.73sq m Kidney failure: <15 mL/min/1.73sq m eGFR calculated using average adult body mass. Additional eGFR calculator available at: http://www.[employer].com/multiple_crcl_2012.htm Stage 1: Some kidney damage normal GFR Stage 2: Mild kidney damage GFR 60-89 Stage 3: Moderate kidney damage GFR 30-59 Stage 4: Severe kidney damage GFR 15-29 Stage 5: Severe kidney damage GFR <15 ESRD - chronic treatment by dialysis or transplant Sedimentation Rateon 020 Interpretation and review of laboratory results Abnormal [place] Sed Rate 30 mm High 0 - 20 mm [place] Infectious Disease Office/Cl inic Noteon 08-27-2020 [...] cephalexin and antibiotics to be adjusted by jail physician based on culture. Problem List/Past Medical [...] Manuel Kathleen MD 08/29/20 09:08 EST Normal [facility] Microscopic Urinalysison Amorphous, UA NOT REPORTED None [facility] [employer] Bacteria, UA 4+ Abnormal None [facility] Casts UA NOT REPORTED /LPF [facility] [employer] Crystals, UA 10 TO 20 Abnormal None /HPF [facility] [employer] Crystals, UA TRIPLE PHOSPHATE Abnormal None /HPF [facility] [employer] Epithelial Cells UA 5 TO 10 [facility] [employer] Interpretation and review of laboratory results Abnormal [facility] [employer] Mucus, UA NOT REPORTED None [facility] [employer] Other Observations UA NOT REPORTED NOT REQ. [facility] [employer] RBC (U) [#/Vol] 20 TO 50 [facility] [employer] Renal Epithelial, UA NOT REPORTED 0 /HPF [facility] Trichomonas, UA NOT REPORTED None [facility] WBC, UA GREATER THAN 100 [facility] Yeast, UA NOT REPORTED None [facility] - [facility] Provider Letteron 08-27-2020 Provider Letter Justino Dhaliwal DO [address] [place] [address] Re: Meenu Ovidio Date of Visit: 08/27/[address] Dhaliwal, Thank you for your referral to my office. Attached you will find the most recent office visit note. Please call if you have any questions or concerns. Sincerely, Manuel Kathleen MD [address] [place] [address], [facility] [place] [address] The following document(s) were included in the letter: August 27, 2020 15:16:22 EST - (08/27/2020) Telehealth Office Visit Note Normal [facility] Urinalysison 08-27-2020 Bilirubin Urine Negative NEGATIVE [facility] Color, UA YELLOW YELLOW [facility] Glucose, Ur Negative NEGATIVE [facility] [place] Interpretation and review of laboratory results Abnormal [facility] Ketones Ql (U) Negative NEGATIVE [facility] Leukocyte esterase Test strip Ql (U) LARGE Abnormal NEGATIVE [facility] Nitrite, Urine Negative NEGATIVE [facility] pH, UA >=9.0 [facility] [place] Protein (U) [Mass/Vol] 2+ Abnormal NEGATIVE [facility] Specific [place], UA 1.010 [facility] Turbidity UA CLOUDY Abnormal CLEAR [facility] Urinalysis Comments NOT REPORTED [facility] Urine Hgb Negative NEGATIVE [facility] [place] Urobilinogen, Urine Normal Normal [facility] [place] C-Reactive Proteinon 020 CRP [Mass/Vol] 26.8 mg/L High 0 - 5 mg/L [facility] Interpretation and review of laboratory results Abnormal [facility] CBCon 08-21-2020 Erythrocyte distribution width (RBC) [Ratio] 13.7 % 11.8 - 14.4 % [place] Hematocrit (Bld) [Volume fraction] 40.0 % 36.3 - 47.1 % [place] Hemoglobin (Bld) [Mass/Vol] 11.9 g/dL 11.9 - 15.1 g/dL [place] MCH (RBC) [Entitic mass] 29.0 pg 25.2 - 33.5 pg [place] MCHC (RBC) [Mass/Vol] 29.8 g/dL 28.4 - 34.8 g/dL [place] MCV (RBC) [Entitic vol] 97.3 fL 82.6 - 102.9 fL [place] Platelet mean volume (Bld) [Entitic vol] 10.3 fL 8.1 - 13.5 fL [place] Platelets (Bld) [#/Vol] 380 10*3/uL [place] RBC (Bld) [#/Vol] 4.11 10*6/uL 3.95 - 5.1 1 m/uL [place] WBC (Bld) [#/Vol] 0.0 10*3/uL 0.0 per 10 0 WBC [place] WBC (Bld) [#/Vol] 6.8 10*3/uL [place] Comprehensive Metabolic Pane riddhi 08-21-2020 Albumin [Mass/Vol] 4 g/dL 3.5 - 5.2 g/dL [place] Albumin/Globulin [Mass ratio] 1.2 {ratio} [place] ALP [Catalytic activity/Vol] 143 U/L High 35 - 104 U/L [place] ALT [Catalytic activity/Vol] 13 U/L 5 - 33 U/L [place] Anion gap [Moles/Vol] 14 mmol/L 9 - 17 mmol/L [place] AST [Catalytic activity/Vol] 14 U/L <32 [place] Bilirubin Ql (U) 0.18 mg/dL Low 0.3 - 1.2 mg/dL [place] Bun/Cre Ratio 38 High [place] Calcium [Mass/Vol] 10.0 mg/dL 8.6 - 10. 4 mg/dL [place] Chloride [Moles/Vol] 102 mmol/L 98 - 10 7 mmol/L [place] CO2 [Moles/Vol] 27 mmol/L 20 - 31 mmol/L [place] Creatinine [Mass/Vol] 1.57 mg/dL High 0.5 - 0.9 mg/dL [place] GFR 38 mL/min Low >60 [place] GFR Non- 31 mL/min Low >60 [place] Glucose [Mass/Vol] 123 mg/dL High 70 - 99 mg/dL [place] Interpretation and review of laboratory results Abnormal [place] Potassium [Moles/Vol] 3.8 mmol/L 3.7 - 5.3 mmol/L [place] Protein [Mass/Vol] 7.4 g/dL 6.4 - 8.3 g/dL [place] Sodium [Moles/Vol] 143 mmol/L 135 - 144 mmol/L [place] Urea nitrogen [Mass/Vol] 60 mg/dL High 8 - 23 mg/dL [place] Metabolic Panelon 08-21-2020 GFR/1.73 sq M predicted among non-blacks MDRD (S/P/Bld) [Vol rate/Area] [place] Comment on above: Average GFR for 70 o r more years old: 75 mL/min/1.73sq m Chronic Kidney Disease: <60 mL/min/1.73sq m Kidney failure: <15 mL/min/1.73sq m eGFR calculated using average adult body mass. Additional eGFR calculator available at: http://www.[employer].co/multiple_crcl_2012.htm Stage 1: Some kidney damage normal GFR Stage 2: Mild kidney damage GFR 60-89 Stage 3: Moderate kidney damage GFR 30-59 Stage 4: Severe kidney damage GFR 15-29 Stage 5: Severe kidney damage GFR <15 ESRD - chronic treatment by dialysis or transplant Sedimentation Rateon Interpretation and review of laboratory results Abnormal [place] Sed Rate 38 mm High 0 - 20 mm [place] C-Reactive Proteinon CRP [Mass/Vol] 14.9 mg/L High 0 - 5 mg/L [place] Interpretation and review of laboratory results Abnormal [place] CBCon 08-16-2020 Erythrocyte distribution width (RBC) [Ratio] 13.9 % 11.8 - 14.4 % [place] Hematocrit (Bld) [Volume fraction] 40.8 % 36.3 - 47.1 % [place] Hemoglobin (Bld) [Mass/Vol] 12.2 g/dL 11.9 - 15.1 g/dL [place] MCH (RBC) [Entitic mass] 28.8 pg 25.2 - 33.5 pg [place] MCHC (RBC) [Mass/Vol] 29.9 g/dL 28.4 - 34.8 g/dL [place] MCV (RBC) [Entitic vol] 96.5 fL 82.6 - 102.9 fL [place] Platelet mean volume (Bld) [Entitic vol] 9.7 fL 8.1 - 13.5 fL [place] Platelets (Bld) [#/Vol] 405 10*3/uL [place] RBC (Bld) [#/Vol] 4.23 10*6/uL 3.95 - 5.1 1 m/uL [place] WBC (Bld) [#/Vol] 0.0 10*3/uL 0.0 per 10 0 WBC [place] WBC (Bld) [#/Vol] 9.7 10*3/uL [place] Comprehensive Metabolic Pane riddhi 08-16-2020 Albumin [Mass/Vol] 3.9 g/dL 3.5 - 5.2 g/dL [place] Albumin/Globulin [Mass ratio] 1.3 {ratio} [place] ALP [Catalytic activity/Vol] 143 U/L High 35 - 104 U/L [place] ALT [Catalytic activity/Vol] 13 U/L 5 - 33 U/L [place] Anion gap [Moles/Vol] 14 mmol/L 9 - 17 mmol/L [place] AST [Catalytic activity/Vol] 17 U/L <32 [place] Bilirubin Ql (U) 0.26 mg/dL Low 0.3 - 1.2 mg/dL [place] Bun/Cre Ratio 40 High [place] Calcium [Mass/Vol] 9.4 mg/dL 8.6 - 10. 4 mg/dL [place] Chloride [Moles/Vol] 102 mmol/L 98 - 10 7 mmol/L [place] CO2 [Moles/Vol] 25 mmol/L 20 - 31 mmol/L [place] Creatinine [Mass/Vol] 1.24 mg/dL High 0.5 - 0.9 mg/dL [place] GFR 50 mL/min Low >60 [place] GFR Non- 41 mL/min Low >60 [place] Glucose [Mass/Vol] 104 mg/dL High 70 - 99 mg/dL [place] Interpretation and review of laboratory results Abnormal [place] Potassium [Moles/Vol] 4.2 mmol/L 3.7 - 5.3 mmol/L [place] Protein [Mass/Vol] 7.0 g/dL 6.4 - 8.3 g/dL [place] Sodium [Moles/Vol] 141 mmol/L 135 - 144 mmol/L [place] Urea nitrogen [Mass/Vol] 49 mg/dL High 8 - 23 mg/dL [place] Metabolic Panelon 08-16-2020 GFR/1.73 sq M predicted among non-blacks MDRD (S/P/Bld) [Vol rate/Area] [place] Comment on above: Average GFR for 70 o r more years old: 75 mL/min/1.73sq m Chronic Kidney Disease: <60 mL/min/1.73sq m Kidney failure: <15 mL/min/1.73sq m eGFR calculated using average adult body mass. Additional eGFR calculator available at: http://www.[employer].co/multiple_crcl_2012.htm Stage 1: Some kidney damage normal GFR Stage 2: Mild kidney damage GFR 60-89 Stage 3: Moderate kidney damage GFR 30-59 Stage 4: Severe kidney damage GFR 15-29 Stage 5: Severe kidney damage GFR <15 ESRD - chronic treatment by dialysis or transplant Sedimentation Rateon 08-16-2 020 Interpretation and review of laboratory results Abnormal [place] Sed Rate 42 mm High 0 - 20 mm [place] CBCon 08-09-2020 Erythrocyte distribution width (RBC) [Ratio] 13.7 % 11.8 - 14.4 % [place] Hematocrit (Bld) [Volume fraction] 37.1 % 36.3 - 47.1 % [place] Hemoglobin (Bld) [Mass/Vol] 11.4 g/dL Low 11.9 - 15.1 g/dL [place] Interpretation and review of laboratory results Abnormal [place] MCH (RBC) [Entitic mass] 29.5 pg 25.2 - 33.5 pg [place] MCHC (RBC) [Mass/Vol] 30.7 g/dL 28.4 - 34.8 g/dL [place] MCV (RBC) [Entitic vol] 96.1 fL 82.6 - 102.9 fL [place] Platelet mean volume (Bld) [Entitic vol] 10.0 fL 8.1 - 13.5 fL [place] Platelets (Bld) [#/Vol] 334 10*3/uL [place] RBC (Bld) [#/Vol] 3.86 10*6/uL Low 3.95 - 5.1 1 m/uL [place] WBC (Bld) [#/Vol] 10.0 10*3/uL [place] WBC (Bld) [#/Vol] 0.0 10*3/uL 0.0 per 10 0 WBC [place] Creatinine, Random Urineon 1 10-09-2019 Creatinine, Ur 25.9 mg/dL Low 28 - 217 mg/dL [place] Interpretation and review of laboratory results Abnormal [place] Ferritinon 08-09-2020 Ferritin [Mass/Vol] 179 ug/L High 13 - 150 ug/L [place] Iron and TIBCon 08-09-2020 Iron [Mass/Vol] 38 ug/dL 37 - 145 ug/dL [place] Iron Saturation 13 % Low 20 - 55 % [place] TIBC 291 ug/dL 250 - 450 ug/dL [place] UIBC 253 ug/dL 112 - 347 ug/dL [place] Magnesiumon 08-09-2020 Magnesium [Mass/Vol] 2.1 mg/dL 1.6 - 2 .6 mg/dL [place] Metabolic Panelon 08-09-2020 GFR/1.73 sq M predicted among non-blacks MDRD (S/P/Bld) [Vol rate/Area] [place] Comment on above: Average GFR for 70 o r more years old: 75 mL/min/1.73sq m Chronic Kidney Disease: <60 mL/min/1.73sq m Kidney failure: <15 mL/min/1.73sq m eGFR calculated using average adult body mass. Additional eGFR calculator available at: http://www.[employer]/multiple_crcl_2012.htm Stage 1: Some kidney damage normal GFR Stage 2: Mild kidney damage GFR 60-89 Stage 3: Moderate kidney damage GFR 30-59 Stage 4: Severe kidney damage GFR 15-29 Stage 5: Severe kidney damage GFR <15 ESRD - chronic treatment by dialysis or transplant Microscopic Urinalysison Amorphous, UA NOT REPORTED None [place] Bacteria, UA 1+ Abnormal None [place] Casts UA NOT REPORTED /LPF [place] Crystals, UA NOT REPORTED None /HPF [place] Epithelial Cells UA 5 TO 10 [place] Interpretation and review of laboratory results Abnormal [place] Mucus, UA NOT REPORTED None [place] Other Observations UA NOT REPORTED NOT REQ. [place] RBC (U) [#/Vol] 2 TO 5 [place] Renal Epithelial, UA NOT REPORTED 0 /HPF [place] Trichomonas, UA NOT REPORTED None [place] WBC, UA 10 TO 20 [place] Yeast, UA NOT REPORTED None [place] - [place] Otheron 08-09-2020 Interpretation and review of laboratory results Abnormal [place] PTH, Intacton 08-09-2020 Pth Intact 40.39 pg/mL 15 - 65 pg/mL [place] Comment on above: SAMPLES FROM PATIENT S ROUTINELY RECEIVING HIGH DOSE BIOTIN THERAPY MAY SHOW FALSELY DEPRESSED RESULTS. ADDITIONAL INFORMATION MAY BE REQUIRED FOR DIAGNOSIS. Protein, urine, randomon Protein (U) [Mass/Vol] 10 mg/dL [place] Comment on above: No normal range esta blished. Renal Function Panelon 08-09 Albumin [Mass/Vol] 3.7 g/dL 3.5 - 5.2 g/dL [place] Anion gap [Moles/Vol] 14 mmol/L 9 - 17 mmol/L [place] Bun/Cre Ratio 38 High [place] Calcium [Mass/Vol] 9.2 mg/dL 8.6 - 10. 4 mg/dL [place] Chloride [Moles/Vol] 102 mmol/L 98 - 10 7 mmol/L [place] CO2 [Moles/Vol] 24 mmol/L 20 - 31 mmol/L [place] Creatinine [Mass/Vol] 1.07 mg/dL High 0.5 - 0.9 mg/dL [place] GFR 60 mL/min Low >60 [place] GFR Non- 49 mL/min Low >60 [place] Glucose [Mass/Vol] 111 mg/dL High 70 - 99 mg/dL [place] Interpretation and review of laboratory results Abnormal [place] Phosphate [Mass/Vol] 3.2 mg/dL 2.6 - 4 .5 mg/dL [place] Potassium [Moles/Vol] 3.9 mmol/L 3.7 - 5.3 mmol/L [place] Sodium [Moles/Vol] 140 mmol/L 135 - 144 mmol/L [place] Urea nitrogen [Mass/Vol] 41 mg/dL High 8 - 23 mg/dL [place] Uric Acidon 08-09-2020 Urate [Mass/Vol] 4.5 mg/dL 2.4 - 5.7 mg/dL [place] Urinalysis Reflex to Culture on 08-09-2020 Bilirubin Urine Negative NEGATIVE [place] Color, UA YELLOW YELLOW [place] Glucose, Ur Negative NEGATIVE [place] Interpretation and review of laboratory results Abnormal [place] Ketones Ql (U) Negative NEGATIVE [place] Leukocyte esterase Test strip Ql (U) LARGE Abnormal NEGATIVE [place] Nitrite, Urine Negative NEGATIVE [place] pH, UA 7.0 [place] Protein (U) [Mass/Vol] Negative NEGATIVE [place] Specific [place], UA 1.015 [place], [place] Turbidity UA CLEAR CLEAR [place] Urinalysis Comments NOT REPORTED [place] Urine Hgb TRACE Abnormal NEGATIVE [place] Urobilinogen, Urine Normal Normal [place] CBCon 07-18-2020 Erythrocyte distribution width (RBC) [Ratio] 14.7 % High 11.8 - 14.4 % [place] Hematocrit (Bld) [Volume fraction] 34.6 % Low 36.3 - 47.1 % [place] Hemoglobin (Bld) [Mass/Vol] 10.3 g/dL Low 11.9 - 15.1 g/dL [place] Interpretation and review of laboratory results Abnormal [place] MCH (RBC) [Entitic mass] 30.1 pg 25.2 - 33.5 pg [place] MCHC (RBC) [Mass/Vol] 29.8 g/dL 28.4 - 34.8 g/dL [place] MCV (RBC) [Entitic vol] 101.2 fL 82.6 - 102.9 fL [place] Platelet mean volume (Bld) [Entitic vol] 9.9 fL 8.1 - 13.5 fL [place] Platelets (Bld) [#/Vol] 328 10*3/uL [place] RBC (Bld) [#/Vol] 3.42 10*6/uL Low 3.95 - 5.1 1 m/uL [place] WBC (Bld) [#/Vol] 0.0 10*3/uL 0.0 per 10 0 WBC [place] WBC (Bld) [#/Vol] 7.5 10*3/uL [place] Creatinine, Random Urineon 1 Creatinine, Ur 97.1 mg/dL 28 - 217 mg/dL [place] Magnesiumon 07-18-2020 Magnesium [Mass/Vol] 2.2 mg/dL 1.6 - 2 .6 mg/dL [place] Metabolic Panelon 07-18-2020 GFR/1.73 sq M predicted among non-blacks MDRD (S/P/Bld) [Vol rate/Area] [place] Comment on above: Average GFR for 70 o r more years old: 75 mL/min/1.73sq m Chronic Kidney Disease: <60 mL/min/1.73sq m Kidney failure: <15 mL/min/1.73sq m eGFR calculated using average adult body mass. Additional eGFR calculator available at: http://www.[employer].co/multiple_crcl_2011.htm Stage 1: Some kidney damage normal GFR Stage 2: Mild kidney damage GFR 60-89 Stage 3: Moderate kidney damage GFR 30-59 Stage 4: Severe kidney damage GFR 15-29 Stage 5: Severe kidney damage GFR <15 ESRD - chronic treatment by dialysis or transplant Microscopic Urinalysison Amorphous, UA NOT REPORTED None [place] Bacteria, UA NOT REPORTED None [place] Casts UA NOT REPORTED /LPF [place] Crystals, UA CALCIUM OXALATE Abnormal None /HPF [place] Crystals, UA 0 TO 2 Abnormal None /HPF [place] Epithelial Cells UA 2 TO 5 [place] Interpretation and review of laboratory results Abnormal [place] Mucus, UA NOT REPORTED None [place] Other Observations UA NOT REPORTED NOT REQ. [place] RBC (U) [#/Vol] 0 TO 2 [place] Renal Epithelial, UA NOT REPORTED 0 /HPF [place] Trichomonas, UA NOT REPORTED None [place] WBC, UA None [place] Yeast, UA NOT REPORTED None [place] PTH, Intacton 07-18-2020 Pth Intact 58.77 pg/mL 15 - 65 pg/mL [place] Comment on above: SAMPLES FROM PATIENT S ROUTINELY RECEIVING HIGH DOSE BIOTIN THERAPY MAY SHOW FALSELY DEPRESSED RESULTS. ADDITIONAL INFORMATION MAY BE REQUIRED FOR DIAGNOSIS. Protein, urine, randomon Protein (U) [Mass/Vol] 19 mg/dL [place] Comment on above: No normal range esta blished. Renal Function Panelon 07-18 Albumin [Mass/Vol] 3.3 g/dL Low 3.5 - 5.2 g/dL [place] Anion gap [Moles/Vol] 16 mmol/L 9 - 17 mmol/L [place] Bun/Cre Ratio 27 High [place] Calcium [Mass/Vol] 8.6 mg/dL 8.6 - 10. 4 mg/dL [place] Chloride [Moles/Vol] 102 mmol/L 98 - 10 7 mmol/L [place] CO2 [Moles/Vol] 25 mmol/L 20 - 31 mmol/L [place] Creatinine [Mass/Vol] 1.17 mg/dL High 0.5 - 0.9 mg/dL [place] GFR 54 mL/min Low >60 [place] GFR Non- 44 mL/min Low >60 [place] Glucose [Mass/Vol] 97 mg/dL 70 - 99 mg/dL [place] Interpretation and review of laboratory results Abnormal [place] Phosphate [Mass/Vol] 4.3 mg/dL 2.6 - 4 .5 mg/dL [place] Potassium [Moles/Vol] 3.9 mmol/L 3.7 - 5.3 mmol/L [place] Sodium [Moles/Vol] 143 mmol/L 135 - 144 mmol/L [place] Urea nitrogen [Mass/Vol] 32 mg/dL High 8 - 23 mg/dL [place] Uric Acidon 07-18-2020 Urate [Mass/Vol] 5.1 mg/dL 2.4 - 5.7 mg/dL [place] Urinalysis Reflex to Culture on 07-18-2020 Bilirubin Urine Negative NEGATIVE [place] Color, UA YELLOW YELLOW [place] Glucose, Ur Negative NEGATIVE [place] Interpretation and review of laboratory results Abnormal [place] Ketones Ql (U) Negative NEGATIVE [place] Leukocyte esterase Test strip Ql (U) Negative NEGATIVE [place] Nitrite, Urine Negative NEGATIVE [place] pH, UA 5.5 [place] Protein (U) [Mass/Vol] Negative NEGATIVE [place] Specific [place], UA 1.025 High [place] Turbidity UA CLEAR CLEAR [place] Urinalysis Comments NOT REPORTED [place], [place] Urine Hgb Negative NEGATIVE [place] Urobilinogen, Urine Normal Normal [place] Basic Metabolic Panelon 06-27 Anion gap [Moles/Vol] 12 mmol/L 9 - 17 mmol/L [place] Bun/Cre Ratio 35 High [place] Calcium [Mass/Vol] 8.7 mg/dL 8.6 - 10. 4 mg/dL [place] Chloride [Moles/Vol] 105 mmol/L 98 - 10 7 mmol/L [place] CO2 [Moles/Vol] 24 mmol/L 20 - 31 mmol/L [place] Creatinine [Mass/Vol] 1.02 mg/dL High 0.5 - 0.9 mg/dL [place] GFR >60 >60 mL/min [place] GFR Non- 52 mL/min Low >60 [place] Glucose [Mass/Vol] 98 mg/dL 70 - 99 mg/dL [place] Interpretation and review of laboratory results Abnormal [place] Potassium [Moles/Vol] 4.0 mmol/L 3.7 - 5.3 mmol/L [place] Sodium [Moles/Vol] 141 mmol/L 135 - 144 mmol/L [place] Urea nitrogen [Mass/Vol] 36 mg/dL High 8 - 23 mg/dL [place] Metabolic Panelon 07-09-2020 GFR/1.73 sq M predicted among non-blacks MDRD (S/P/Bld) [Vol rate/Area] [place] Comment on above: Stage 1: Some [...] body mass. Additional eGFR calculator available at: http://www.[employer].co/multiple_crcl_2012.htm Basic Metabolic Panelon Anion gap [Moles/Vol] 11 mmol/L 9 - 17 mmol/L [place] Bun/Cre Ratio 36 High [place] Calcium [Mass/Vol] 9.0 mg/dL 8.6 - 10. 4 mg/dL [place] Chloride [Moles/Vol] 104 mmol/L 98 - 10 7 mmol/L [place] CO2 [Moles/Vol] 23 mmol/L 20 - 31 mmol/L [place] Creatinine [Mass/Vol] 1.59 mg/dL High 0.5 - 0.9 mg/dL [place] GFR 38 mL/min Low >60 [place] GFR Non- 31 mL/min Low >60 [place] Glucose [Mass/Vol] 82 mg/dL 70 - 99 mg/dL [place] Interpretation and review of laboratory results Abnormal [place] Potassium [Moles/Vol] 4.1 mmol/L 3.7 - 5.3 mmol/L [place] Sodium [Moles/Vol] 138 mmol/L 135 - 144 mmol/L [place] Urea nitrogen [Mass/Vol] 58 mg/dL High 8 - 23 mg/dL [place] Metabolic Panelon 07-01-2020 GFR/1.73 sq M predicted among non-blacks MDRD (S/P/Bld) [Vol rate/Area] [place] Comment on above: Stage 1: Some [...] body mass. Additional eGFR calculator available at: http://www.[employer]/multiple_crcl_2012.htm Basic Metabolic Panelon 05-29 Anion gap [Moles/Vol] 12 mmol/L 9 - 17 mmol/L [place] Bun/Cre Ratio 36 High [place], [place] Calcium [Mass/Vol] 8.9 mg/dL 8.6 - 10. 4 mg/dL [place] Chloride [Moles/Vol] 101 mmol/L 98 - 10 7 mmol/L [place] CO2 [Moles/Vol] 23 mmol/L 20 - 31 mmol/L [place] Creatinine [Mass/Vol] 1.34 mg/dL High 0.5 - 0.9 mg/dL [place] GFR 46 mL/min Low >60 [place], [place] GFR Non- 38 mL/min Low >60 [place], [place] Glucose [Mass/Vol] 112 mg/dL High 70 - 99 mg/dL [place], [place] Interpretation and review of laboratory results Abnormal [place] Potassium [Moles/Vol] 4.5 mmol/L 3.7 - 5.3 mmol/L [place] Sodium [Moles/Vol] 136 mmol/L 135 - 144 mmol/L [place], [place] Urea nitrogen [Mass/Vol] 48 mg/dL High 8 - 23 mg/dL [place], [place] Infectious Disease Office/Cl inic Noteon 06-25-2020 [...] KUMAR, Manuel Brody 06/25/20 09:51 EDT Normal [facility] Metabolic Panelon 06-25-2020 GFR/1.73 sq M predicted among non-blacks MDRD (S/P/Bld) [Vol rate/Area] [facility] [place] [place], [place] Comment on above: Stage 1: Some [...] body mass. Additional eGFR calculator available at: http://www.[employer].Brandma.co/multiple_crcl_2012.htm Provider Letteron 06-25-2020 Provider Letter Justino Dhaliwal DO [address] [place] [address] Re: Meenu Ovidio Date of Visit: 06/25/[address] Dhaliwal, Thank you for your referral to my office. Attached you will find the most recent office visit note. Please call if you have any questions or concerns. Sincerely, Manuel Kathleen MD [address] [place] [address], [address] [place] [address] The following document(s) were included in the letter: June 25, 2020 09:49:14 EDT - (06/25/2020) Telehealth Office Visit Note Normal [facility] Lipid Panelon 06-19-2020 Cholesterol [Mass/Vol] 151 mg/dL <200 [place], [place] Comment on above: Cholesterol Guidelines: <200 Desirable 200-240 Borderline >240 Undesirable Cholesterol in HDL [Mass/Vol] 58 mg/dL >40 [place], [place] Comment on above: HDL Guidelines: <40 Undesirable 40-59 Borderline >59 Desirable Cholesterol in LDL [Mass/Vol] 72 mg/dL 0 - 130 mg/dL [place], [place] Comment on above: LDL Guidelines: <100 Desirable 100-129 Near to/above Desirable 130-159 Borderline >159 Undesirable Direct (measured) LDL and calculated LDL are not interchangeable tests. Cholesterol in VLDL [Mass/Vol] NOT REPORTED 1 - 30 mg/dL [place], [place] Cholesterol.total/Vani sterol in HDL [Mass ratio] 2.6 {ratio} <5 [place] Triglyceride [Mass/Vol] 107 mg/dL <150 [place], [place] Comment on above: Triglyceride Guidelines: <150 Desirable 150-199 Borderline 200-499 High >499 Very high Based on AHA Guidelines for fasting triglyceride, June 2012. C-Reactive Proteinon 020 CRP [Mass/Vol] 3.9 mg/L 0 - 5 mg/L [place] CBCon 06-12-2020 Erythrocyte distribution width (RBC) [Ratio] 17.4 % High 11.8 - 14.4 % [place] Hematocrit (Bld) [Volume fraction] 31.3 % Low 36.3 - 47.1 % [place] Hemoglobin (Bld) [Mass/Vol] 9.3 g/dL Low 11.9 - 15.1 g/dL [place], [place] Interpretation and review of laboratory results Abnormal [place] MCH (RBC) [Entitic mass] 30.1 pg 25.2 - 33.5 pg [place] MCHC (RBC) [Mass/Vol] 29.7 g/dL 28.4 - 34.8 g/dL [place], [place] MCV (RBC) [Entitic vol] 101.3 fL 82.6 - 102.9 fL [place], [place] Platelet mean volume (Bld) [Entitic vol] 9.5 fL 8.1 - 13.5 fL [place] Platelets (Bld) [#/Vol] 382 10*3/uL [place], [place] RBC (Bld) [#/Vol] 3.09 10*6/uL Low 3.95 - 5.1 1 m/uL [place], [place] WBC (Bld) [#/Vol] 0.0 10*3/uL 0.0 per 10 0 WBC [place] WBC (Bld) [#/Vol] 7.3 10*3/uL [place] Comprehensive Metabolic Pane riddhi 06-12-2020 Albumin [Mass/Vol] 2.9 g/dL Low 3.5 - 5.2 g/dL [place] Albumin/Globulin [Mass ratio] 1.1 {ratio} [place], [place] ALP [Catalytic activity/Vol] 155 U/L High 35 - 104 U/L [place] ALT [Catalytic activity/Vol] 25 U/L 5 - 33 U/L [place] Anion gap [Moles/Vol] 10 mmol/L 9 - 17 mmol/L [place] AST [Catalytic activity/Vol] 22 U/L <32 [place] Bilirubin Ql (U) 0.24 mg/dL Low 0.3 - 1.2 mg/dL [place], [place] Bun/Cre Ratio 23 High [place], [place] Calcium [Mass/Vol] 8.6 mg/dL 8.6 - 10. 4 mg/dL [place], [place] Chloride [Moles/Vol] 102 mmol/L 98 - 10 7 mmol/L [place] CO2 [Moles/Vol] 26 mmol/L 20 - 31 mmol/L [place] Creatinine [Mass/Vol] 1.03 mg/dL High 0.5 - 0.9 mg/dL [place], [place] GFR >60 >60 mL/min [place], [place] GFR Non- 51 mL/min Low >60 [place] Glucose [Mass/Vol] 110 mg/dL High 70 - 99 mg/dL [place] Interpretation and review of laboratory results Abnormal [place] Potassium [Moles/Vol] 4.1 mmol/L 3.7 - 5.3 mmol/L [place] Protein [Mass/Vol] 5.5 g/dL Low 6.4 - 8.3 g/dL [place], [place] Sodium [Moles/Vol] 138 mmol/L 135 - 144 mmol/L [place], [place] Urea nitrogen [Mass/Vol] 24 mg/dL High 8 - 23 mg/dL [place] Infectious Disease Office/Cl inic Noteon 06-12-2020 [...] system negative. [facility] been okay. She appears to be [...] Continue to follow-up with Dr. Yousif in [place] wound clinic. Problem List/Past Medical History Ongoing [...] Use:. Family History Cancer: Sibling. Lab Results [place] studies of June 06 showed a white [...] KUMAR, Manuel Brody 06/12/20 14:48 EDT Normal [facility] Metabolic Panelon 06-12-2020 GFR/1.73 sq M predicted among non-blacks MDRD (S/P/Bld) [Vol rate/Area] [place], [place] Comment on above: Average GFR for 70 o r more years old: 75 mL/min/1.73sq m Chronic Kidney Disease: <60 mL/min/1.73sq m Kidney failure: <15 mL/min/1.73sq m eGFR calculated using average adult body mass. Additional eGFR calculator available at: http://www.trueEX/multiple_crcl_2012.htm Stage 1: Some kidney damage normal GFR Stage 2: Mild kidney damage GFR 60-89 Stage 3: Moderate kidney damage GFR 30-59 Stage 4: Severe kidney damage GFR 15-29 Stage 5: Severe kidney damage GFR <15 ESRD - chronic treatment by dialysis or transplant Sedimentation Rateon Interpretation and review of laboratory results Abnormal [place], [place] Sed Rate 54 mm High 0 - 20 mm [place] C-Reactive Proteinon 020 CRP [Mass/Vol] 6.5 mg/L High 0 - 5 mg/L [place] Interpretation and review of laboratory results Abnormal [place] CBCon 06-06-2020 Erythrocyte distribution width (RBC) [Ratio] 17.4 % High 11.8 - 14.4 % [place] Hematocrit (Bld) [Volume fraction] 30.6 % Low 36.3 - 47.1 % [place] Hemoglobin (Bld) [Mass/Vol] 9.0 g/dL Low 11.9 - 15.1 g/dL [place] Interpretation and review of laboratory results Abnormal [place] MCH (RBC) [Entitic mass] 30.2 pg 25.2 - 33.5 pg [place] MCHC (RBC) [Mass/Vol] 29.4 g/dL 28.4 - 34.8 g/dL [place] MCV (RBC) [Entitic vol] 102.7 fL 82.6 - 102.9 fL [place] Platelet mean volume (Bld) [Entitic vol] 9.4 fL 8.1 - 13.5 fL [place] Platelets (Bld) [#/Vol] 356 10*3/uL [place] RBC (Bld) [#/Vol] 2.98 10*6/uL Low 3.95 - 5.1 1 m/uL [place] WBC (Bld) [#/Vol] 8.0 10*3/uL [place] WBC (Bld) [#/Vol] 0.0 10*3/uL 0.0 per 10 0 WBC [place] Comprehensive Metabolic Pane riddhi 06-06-2020 Albumin [Mass/Vol] 2.9 g/dL Low 3.5 - 5.2 g/dL [place] Albumin/Globulin [Mass ratio] 1.2 {ratio} [place] ALP [Catalytic activity/Vol] 170 U/L High 35 - 104 U/L [place] ALT [Catalytic activity/Vol] 13 U/L 5 - 33 U/L [place] Anion gap [Moles/Vol] 11 mmol/L 9 - 17 mmol/L [place] AST [Catalytic activity/Vol] 18 U/L <32 [place] Bilirubin Ql (U) 0.28 mg/dL Low 0.3 - 1.2 mg/dL [place], [place] Bun/Cre Ratio 23 High [place], [place] Calcium [Mass/Vol] 8.5 mg/dL Low 8.6 - 10. 4 mg/dL [place] Chloride [Moles/Vol] 106 mmol/L 98 - 10 7 mmol/L [place] CO2 [Moles/Vol] 23 mmol/L 20 - 31 mmol/L [place] Creatinine [Mass/Vol] 1.01 mg/dL High 0.5 - 0.9 mg/dL [place] GFR >60 >60 mL/min [place], [place] GFR Non- 52 mL/min Low >60 [place] Glucose [Mass/Vol] 109 mg/dL High 70 - 99 mg/dL [place] Interpretation and review of laboratory results Abnormal [place] Potassium [Moles/Vol] 3.9 mmol/L 3.7 - 5.3 mmol/L [place] Protein [Mass/Vol] 5.4 g/dL Low 6.4 - 8.3 g/dL [place] Sodium [Moles/Vol] 140 mmol/L 135 - 144 mmol/L [place], [place] Urea nitrogen [Mass/Vol] 23 mg/dL 8 - 23 mg/dL [place] Metabolic Panelon 06-06-2020 GFR/1.73 sq M predicted among non-blacks MDRD (S/P/Bld) [Vol rate/Area] [place], [place] Comment on above: Average GFR for 70 o r more years old: 75 mL/min/1.73sq m Chronic Kidney Disease: <60 mL/min/1.73sq m Kidney failure: <15 mL/min/1.73sq m eGFR calculated using average adult body mass. Additional eGFR calculator available at: http://www.[employer].Brandma.co/multiple_crcl_2012.htm Stage 1: Some kidney damage normal GFR Stage 2: Mild kidney damage GFR 60-89 Stage 3: Moderate kidney damage GFR 30-59 Stage 4: Severe kidney damage GFR 15-29 Stage 5: Severe kidney damage GFR <15 ESRD - chronic treatment by dialysis or transplant Sedimentation Rateon 09-10-2 020 Interpretation and review of laboratory results Abnormal [place], [place] Sed Rate 58 mm High 0 - 20 mm [place] C-Reactive Proteinon CRP [Mass/Vol] 7.6 mg/L High 0 - 5 mg/L [place] Interpretation and review of laboratory results Abnormal [place] CBC Auto Differentialon Basophils (Bld) [#/Vol] 0.00 10*3/uL [place], [place] Basophils/100 WBC (Bld) 0 % 0 - 2 % [place], [place] Differential Type NOT REPORTED [place] Eosinophils (Bld) [#/Vol] 0.43 10*3/uL [place] Eosinophils/100 WBC (Bld) 8 % High 1 - 4 % [place] Erythrocyte distribution width (RBC) [Ratio] 17.0 % High 11.8 - 14.4 % [place] Hematocrit (Bld) [Volume fraction] 32.6 % Low 36.3 - 47.1 % [place] Hemoglobin (Bld) [Mass/Vol] 9.4 g/dL Low 11.9 - 15.1 g/dL [place], [place] Immature granulocytes (Bld) [#/Vol] 1 % High 0 [place] Immature granulocytes (Bld) [#/Vol] 0.05 10*3/uL [place] Interpretation and review of laboratory results Abnormal [place] Lymphocytes (Bld) [#/Vol] 2.11 10*3/uL [place] Lymphocytes/100 WBC (Bld) 39 % 24 - 43 % [place] MCH (RBC) [Entitic mass] 29.5 pg 25.2 - 33.5 pg [place] MCHC (RBC) [Mass/Vol] 28.8 g/dL 28.4 - 34.8 g/dL [place] MCV (RBC) [Entitic vol] 102.2 fL 82.6 - 102.9 fL [place], [place] Monocytes (Bld) [#/Vol] 0.59 10*3/uL [place], [place] Monocytes/100 WBC (Bld) 11 % 3 - 12 % [place], [place] Morphology [place] (Bld) [Interp] HYPOCHROMASIA PRESENT [place] Platelet mean volume (Bld) [Entitic vol] 9.3 fL 8.1 - 13.5 fL [place] Platelets (Bld) [#/Vol] 398 10*3/uL [place] Platelets (Bld) [#/Vol] NOT REPORTED [place] RBC (Bld) [#/Vol] 3.19 10*6/uL Low 3.95 - 5.1 1 m/uL [place], [place] RBC morphology finding Nom (Bld) NOT REPORTED [place] Segmented neutrophils/100 WBC (Bld) 41 % 36 - 65 % [place] Segs Absolute 2.22 [place] WBC (Bld) [#/Vol] 5.4 10*3/uL [place] WBC (Bld) [#/Vol] 0.0 10*3/uL 0.0 per 10 0 WBC [place] WBC Morphology NOT REPORTED [place] Comprehensive Metabolic Pane riddhi 05-30-2020 Albumin [Mass/Vol] 2.8 g/dL Low 3.5 - 5.2 g/dL [place] Albumin/Globulin [Mass ratio] 1.0 {ratio} [place] ALP [Catalytic activity/Vol] 147 U/L High 35 - 104 U/L [place] ALT [Catalytic activity/Vol] 7 U/L 5 - 33 U/L [place] Anion gap [Moles/Vol] 10 mmol/L 9 - 17 mmol/L [place] AST [Catalytic activity/Vol] 13 U/L <32 [place] Bilirubin Ql (U) 0.23 mg/dL Low 0.3 - 1.2 mg/dL [place] Bun/Cre Ratio 16 [place] Calcium [Mass/Vol] 8.5 mg/dL Low 8.6 - 10. 4 mg/dL [place] Chloride [Moles/Vol] 104 mmol/L 98 - 10 7 mmol/L [place] CO2 [Moles/Vol] 23 mmol/L 20 - 31 mmol/L [place] Creatinine [Mass/Vol] 1.3 mg/dL High 0.5 - 0.9 mg/dL [place], [place] GFR 48 mL/min Low >60 [place], [place] GFR Non- 39 mL/min Low >60 [place] Glucose [Mass/Vol] 101 mg/dL High 70 - 99 mg/dL [place] Interpretation and review of laboratory results Abnormal [place] Potassium [Moles/Vol] 4.1 mmol/L 3.7 - 5.3 mmol/L [place] Protein [Mass/Vol] 5.6 g/dL Low 6.4 - 8.3 g/dL [place] Sodium [Moles/Vol] 137 mmol/L 135 - 144 mmol/L [place], [place] Urea nitrogen [Mass/Vol] 21 mg/dL 8 - 23 mg/dL [place], [place] Metabolic Panelon 05-30-2020 GFR/1.73 sq M predicted among non-blacks MDRD (S/P/Bld) [Vol rate/Area] [place], [place] Comment on above: Stage 1: Some [...] body mass. Additional eGFR calculator available at: http://www.[employer].Brandma.co/multiple_crcl_2012.htm Sedimentation Rateon 020 Interpretation and review of laboratory results Abnormal [place], [place] Sed Rate 44 mm High 0 [...] lower leg Consult with wound clinic in [place]. 3. Chronic kidney disease Continue to monitor [...] Manuel Kathleen MD 05/29/20 14:48 EDT Normal [facility] C-Reactive Proteinon 020 CRP [Mass/Vol] 52.4 mg/L High 0 - 5 mg/L [place] Interpretation and review of laboratory results Abnormal [place] CBC Auto Differentialon 04-28 Basophils (Bld) [#/Vol] 0.03 10*3/uL [place], [place] Basophils/100 WBC (Bld) 0 % 0 - 2 % [place] Differential Type NOT REPORTED [place] Eosinophils (Bld) [#/Vol] 0.27 10*3/uL [place] Eosinophils/100 WBC (Bld) 3 % 1 - 4 % [place] Erythrocyte distribution width (RBC) [Ratio] 16.5 % High 11.8 - 14.4 % [place] Hematocrit (Bld) [Volume fraction] 27.8 % Low 36.3 - 47.1 % [place] Hemoglobin (Bld) [Mass/Vol] 8.5 g/dL Low 11.9 - 15.1 g/dL [place] Immature granulocytes (Bld) [#/Vol] 0.09 10*3/uL [place] Immature granulocytes (Bld) [#/Vol] 1 % High 0 [place] Interpretation and review of laboratory results Abnormal [place] Lymphocytes (Bld) [#/Vol] 1.64 10*3/uL [place] Lymphocytes/100 WBC (Bld) 16 % Low 24 - 43 % [place] MCH (RBC) [Entitic mass] 30.1 pg 25.2 - 33.5 pg [place] MCHC (RBC) [Mass/Vol] 30.6 g/dL 28.4 - 34.8 g/dL [place] MCV (RBC) [Entitic vol] 98.6 fL 82.6 - 102.9 fL [place], [place] Monocytes (Bld) [#/Vol] 1.02 10*3/uL [place], [place] Monocytes/100 WBC (Bld) 10 % 3 - 12 % [place], [place] Platelet mean volume (Bld) [Entitic vol] 9.2 fL 8.1 - 13.5 fL [place] Platelets (Bld) [#/Vol] NOT REPORTED [place] Platelets (Bld) [#/Vol] 516 10*3/uL [place] RBC (Bld) [#/Vol] 2.82 10*6/uL Low 3.95 - 5.1 1 m/uL [place], [place] RBC morphology finding Nom (Bld) NOT REPORTED [place] Segmented neutrophils/100 WBC (Bld) 70 % High 36 - 65 % [place] Segs Absolute 7.00 [place] WBC (Bld) [#/Vol] 0.0 10*3/uL 0.0 per 10 0 WBC [place] WBC (Bld) [#/Vol] 10.1 10*3/uL [place] WBC Morphology NOT REPORTED [place] Comprehensive Metabolic Pane riddhi 05-23-2020 Albumin [Mass/Vol] 3 g/dL Low 3.5 - 5.2 g/dL [place] Albumin/Globulin [Mass ratio] 1.1 {ratio} [place] ALP [Catalytic activity/Vol] 152 U/L High 35 - 104 U/L [place] ALT [Catalytic activity/Vol] 11 U/L 5 - 33 U/L [place] Anion gap [Moles/Vol] 12 mmol/L 9 - 17 mmol/L [place] AST [Catalytic activity/Vol] 27 U/L <32 [place] Bilirubin Ql (U) 0.37 mg/dL 0.3 - 1.2 mg/dL [place] Bun/Cre Ratio 10 [place] Calcium [Mass/Vol] 8.4 mg/dL Low 8.6 - 10. 4 mg/dL [place] Chloride [Moles/Vol] 103 mmol/L 98 - 10 7 mmol/L [place] CO2 [Moles/Vol] 23 mmol/L 20 - 31 mmol/L [place] Creatinine [Mass/Vol] 1.53 mg/dL High 0.5 - 0.9 mg/dL [place] GFR 39 mL/min Low >60 [place], [place] GFR Non- 32 mL/min Low >60 [place], [place] Glucose [Mass/Vol] 87 mg/dL 70 - 99 mg/dL [place] Interpretation and review of laboratory results Abnormal [place] Potassium [Moles/Vol] 3.7 mmol/L 3.7 - 5.3 mmol/L [place] Protein [Mass/Vol] 5.7 g/dL Low 6.4 - 8.3 g/dL [place] Sodium [Moles/Vol] 138 mmol/L 135 - 144 mmol/L [place] Urea nitrogen [Mass/Vol] 16 mg/dL 8 - 23 mg/dL [place] Metabolic Panelon 05-23-2020 GFR/1.73 sq M predicted among non-blacks MDRD (S/P/Bld) [Vol rate/Area] [place], [place] Comment on above: Average GFR for 70 o r more years old: 75 mL/min/1.73sq m Chronic Kidney Disease: <60 mL/min/1.73sq m Kidney failure: <15 mL/min/1.73sq m eGFR calculated using average adult body mass. Additional eGFR calculator available at: http://www.trueEX/multiple_crcl_2012.htm Stage 1: Some kidney damage normal GFR Stage 2: Mild kidney damage GFR 60-89 Stage 3: Moderate kidney damage GFR 30-59 Stage 4: Severe kidney damage GFR 15-29 Stage 5: Severe kidney damage GFR <15 ESRD - chronic treatment by dialysis or transplant Sedimentation Rateon 020 Interpretation and review of laboratory results Abnormal [place], [place] Sed Rate 70 mm High 0 - 20 mm [place] Infectious Disease Office/Cl inic Noteon 05-22-2020 [...] on February 08. She was discharged to jail on February 14. She made progress and was discharged home the . However within 3 days on the she was readmitted to jail. X-rays were done in follow-up and there [...] Manuel Kathleen MD 05/22/20 17:13 EDT Normal [facility] CBC Auto Differentialon 04-28 Basophils (Bld) [#/Vol] 10*3/uL [place] Basophils/100 WBC (Bld) 0 % 0 - 2 % [place] Differential Type NOT REPORTED [place] Eosinophils (Bld) [#/Vol] 0.26 10*3/uL [place] Eosinophils/100 WBC (Bld) 3 % 1 - 4 % [place] Erythrocyte distribution width (RBC) [Ratio] 15.0 % High 11.8 - 14.4 % [place] Hematocrit (Bld) [Volume fraction] 27.8 % Low 36.3 - 47.1 % [place] Hemoglobin (Bld) [Mass/Vol] 8.4 g/dL Low 11.9 - 15.1 g/dL [place] Immature granulocytes (Bld) [#/Vol] 0.11 10*3/uL [place] Immature granulocytes (Bld) [#/Vol] 1 % High 0 [place] Interpretation and review of laboratory results Abnormal [place] Lymphocytes (Bld) [#/Vol] 1.84 10*3/uL [place] Lymphocytes/100 WBC (Bld) 19 % Low 24 - 43 % [place] MCH (RBC) [Entitic mass] 29.6 pg 25.2 - 33.5 pg [place] MCHC (RBC) [Mass/Vol] 30.2 g/dL 28.4 - 34.8 g/dL [place] MCV (RBC) [Entitic vol] 97.9 fL 82.6 - 102.9 fL [place] Monocytes (Bld) [#/Vol] 1.08 10*3/uL [place] Monocytes/100 WBC (Bld) 11 % 3 - 12 % [place] Platelet mean volume (Bld) [Entitic vol] 9.4 fL 8.1 - 13.5 fL [place] Platelets (Bld) [#/Vol] NOT REPORTED [place] Platelets (Bld) [#/Vol] 431 10*3/uL [place] RBC (Bld) [#/Vol] 2.84 10*6/uL Low 3.95 - 5.1 1 m/uL [place] RBC morphology finding Nom (Bld) NOT REPORTED [place] Segmented neutrophils/100 WBC (Bld) 66 % High 36 - 65 % [place] Segs Absolute 6.43 [place] WBC (Bld) [#/Vol] 0.0 10*3/uL 0.0 per 10 0 WBC [place] WBC (Bld) [#/Vol] 9.7 10*3/uL [place] WBC Morphology NOT REPORTED [place] Comprehensive Metabolic Pane riddhi 05-17-2020 Albumin [Mass/Vol] 2.2 g/dL Low 3.5 - 5.2 g/dL [place] Albumin/Globulin [Mass ratio] 0.7 {ratio} Low [place] ALP [Catalytic activity/Vol] 102 U/L 35 - 104 U/L [place] ALT [Catalytic activity/Vol] 7 U/L 5 - 33 U/L [place] Anion gap [Moles/Vol] 8 mmol/L Low 9 - 17 mmol/L [place] AST [Catalytic activity/Vol] 14 U/L <32 [place] Bilirubin Ql (U) 0.27 mg/dL Low 0.3 - 1.2 mg/dL [place] Bun/Cre Ratio 17 [place] Calcium [Mass/Vol] 8.4 mg/dL Low 8.6 - 10. 4 mg/dL [place] Chloride [Moles/Vol] 100 mmol/L 98 - 10 7 mmol/L [place] CO2 [Moles/Vol] 26 mmol/L 20 - 31 mmol/L [place] Creatinine [Mass/Vol] 1.01 mg/dL High 0.5 - 0.9 mg/dL [place] GFR >60 >60 mL/min [place] GFR Non- 52 mL/min Low >60 [place] Glucose [Mass/Vol] 124 mg/dL High 70 - 99 mg/dL [place] Interpretation and review of laboratory results Abnormal [place] Potassium [Moles/Vol] 4.1 mmol/L 3.7 - 5.3 mmol/L [place] Protein [Mass/Vol] 5.2 g/dL Low 6.4 - 8.3 g/dL [place] Sodium [Moles/Vol] 134 mmol/L Low 135 - 144 mmol/L [place] Urea nitrogen [Mass/Vol] 17 mg/dL 8 - 23 mg/dL [place] Metabolic Panelon 05-17-2020 GFR/1.73 sq M predicted among non-blacks MDRD (S/P/Bld) [Vol rate/Area] [place], [place] Comment on above: Stage 1: Some [...] body mass. Additional eGFR calculator available at: http://www.[employer].com/multiple_crcl_2012.htm HGB,HCTon 05-15-2020 Hematocrit (Bld) [Volume fraction] 26.2 % Low 37.0-47.0 [facility] Comment on above: Performed By: #### C BCWD, BMP, ANION, EGFR1 #### [facility] [address] [place] [address] Hemoglobin (Bld) [Mass/Vol] 8.3 gm/dl Low 12.0-16.0 [facility] Comment on above: Performed By: #### C BCALEKS, BMP, ANION, EGFR1 #### [facility] [address] [place] [id number] Hemoglobin and hematocrit, b loodon 05-15-2020 Hematocrit (Bld) [Volume fraction] 26.2 % Low 37 - 47 % [place] Comment on above: Performed at [facility] [address] [place] [address] Hemoglobin (Bld) [Mass/Vol] 8.3 g/dL Low [place] Interpretation and review of laboratory results Abnormal [place] ANION GAPon 05-14-2020 Anion gap [Moles/Vol] 9.0 mmol/L Normal 8.0-16.0 [facility] Comment on above: Result Comment: ANIO N GAP = Sodium -(Chloride + CO2) Performed By: #### C BCALEKS, BMP, ANION, EGFR1 #### [facility] [address] [place] [id number] Anion Gapon 05-14-2020 Anion gap [Moles/Vol] 9.0 mmol/L 8 - 16 meq/L [place] Comment on above: ANION GAP = Sodium - (Chloride + CO2) Performed at [facility] [address] [place] [address] BASIC METABOL PANELon 2019 Calcium [Mass/Vol] 7.6 mg/dL Low 8.5-10.5 [facility] Comment on above: Performed By: #### C BCWD, BMP, ANION, EGFR1 #### [facility] [address] [place] [phone] Chloride [Moles/Vol] 105 mmol/L Normal 98-111 [facility] Comment on above: Performed By: #### C BCWD, BMP, ANION, EGFR1 #### [facility] [address] [place] [address] CO2 [Moles/Vol] 24 mmol/L Normal 23-33 [facility] Comment on above: Performed By: #### C BCWD, BMP, ANION, EGFR1 #### [facility] [address] [place] [address] Creatinine [Mass/Vol] 1.1 mg/dL Normal 0.4-1.2 [facility] Comment on above: Performed By: #### C BCWD, BMP, ANION, EGFR1 #### [facility] [address] [place] [address] Glucose [Mass/Vol] 104 mg/dL Normal 70-108 [facility] Comment on above: Performed By: #### C BCWD, BMP, ANION, EGFR1 #### [facility] [address] [place] [address] Potassium [Moles/Vol] 4.0 mmol/L Normal 3.5-5.2 [facility] Comment on above: Performed By: #### C BCWD, BMP, ANION, EGFR1 #### [facility] [address] [place] [address] Sodium [Moles/Vol] 138 mmol/L Normal 135-145 [facility] Comment on above: Performed By: #### C BCWD, BMP, ANION, EGFR1 #### [facility] [address] [place] [address] Urea nitrogen [Mass/Vol] 18 mg/dL Normal 7-22 [facility] Comment on above: Performed By: #### C BCWD, BMP, ANION, EGFR1 #### [facility] [address] [place] [address] Basic Metabolic Panelon 04-27 Calcium [Mass/Vol] 7.6 mg/dL Low 8.5 - 10. 5 mg/dL [place] Comment on above: Performed at [facility] [address] [place] [id number] Chloride [Moles/Vol] 105 mmol/L 98 - 11 1 meq/L [place], [place] CO2 [Moles/Vol] 24 mmol/L 23 - 33 meq/L [place] Creatinine [Mass/Vol] 1.1 mg/dL 0.4 - 1.2 mg/dL [place] Glucose [Mass/Vol] 104 mg/dL 70 - 108 mg/dL [place] Potassium [Moles/Vol] 4.0 mmol/L 3.5 - 5.2 meq/L [place] Sodium [Moles/Vol] 138 mmol/L 135 - 145 meq/L [place] Urea nitrogen [Mass/Vol] 18 mg/dL 7 - 22 mg/dL [place], [place] CBC Auto Differentialon 04-27 Basophils (Bld) [#/Vol] 0.0 10*3/uL [place] Basophils/100 WBC (Bld) 0.2 % [place] Eosinophils (Bld) [#/Vol] 0.2 10*3/uL [place] Eosinophils/100 WBC (Bld) 2 % [place] Erythrocyte distribution width (RBC) [Ratio] 15.2 % High 11.5 - 14.5 % [place] Hematocrit (Bld) [Volume fraction] 23.1 % Low 37 - 47 % [place] Hemoglobin (Bld) [Mass/Vol] 7.0 g/dL Critically low [place], [place] Immature Grans (Abs) 0.07 [place], [place] Immature granulocytes (Bld) [#/Vol] 0.7 % [place] Interpretation and review of laboratory results Abnormal [place] Lymphocytes (Bld) [#/Vol] 2.0 10*3/uL [place] Lymphocytes/100 WBC (Bld) 19.6 % [place] MCH (RBC) [Entitic mass] 29.4 pg 26 - 33 pg [place] MCHC (RBC) [Mass/Vol] 30.3 g/dL [place], [place] MCV (RBC) [Entitic vol] 97.1 fL 81 - 99 fL [place], [place] Monocytes (Bld) [#/Vol] 0.9 10*3/uL [place] Monocytes/100 WBC (Bld) 8.4 % [place] Nucleated RBC/100 WBC (Bld) [Ratio] 0 % /100 wbc [place] Pathologist Review S.ODRONIC, M.D. [place], [place] Platelet mean volume (Bld) [Entitic vol] 9.5 fL 9.4 - 12.4 fL [place] Platelets (Bld) [#/Vol] ADEQUATE Adequate [place] Platelets (Bld) [#/Vol] 385 10*3/uL [place] RBC (Bld) [#/Vol] 2.38 10*6/uL Low [place] RDW-SD 53.4 fL High 35 - 45 fL [place] Rouleaux SLIGHT Absent [place] Comment on above: Performed at [facility] [address] [place] [address] Segmented neutrophils/100 WBC (Bld) 69.1 % [place] Segs Absolute 7.0 [place] WBC (Bld) [#/Vol] 10.2 10*3/uL [place] CBC WITH DIFFERENTIALon 04-27 PATHOLOGIST REVIEWED Shona VILLAFANA Normal [facility] Comment on above: Performed By: #### C BCWD, BMP, ANION, EGFR1 #### [facility] [address] [place] [address] Platelets (Bld) [#/Vol] ADEQUATE Normal Adequate [facility] Comment on above: Performed By: #### C BCWD, BMP, ANION, EGFR1 #### [facility] [address] [place] [address] ROULEAUX SLIGHT Normal Absent [facility] Comment on above: Performed By: #### C BCWD, BMP, ANION, EGFR1 #### [facility] [address] [place] [address] ABS IMMATURE GRANS (IG) 0.07 thou/mm3 Normal 0.00-0.07 [facility] Comment on above: Performed By: #### C BCWD, BMP, ANION, EGFR1 #### [facility] [address] [place] [address] ABS NEUTROPHILS 7.0 thou/mm3 Normal 1.8-7.7 [facility] Comment on above: Performed By: #### C BCWD, BMP, ANION, EGFR1 #### [address] [address] Basophils (Bld) [#/Vol] 0.0 thou/mm3 Normal 0.0-0.1 [facility] Comment on above: Performed By: #### C BCWD, BMP, ANION, EGFR1 #### [place] [address] [address] Basophils/100 WBC (Bld) 0.2 % Normal [facility] Comment on above: Performed By: #### C BCWD, BMP, ANION, EGFR1 #### [address] [address] Eosinophils (Bld) [#/Vol] 0.2 thou/mm3 Normal 0.0-0.4 [facility] Comment on above: Performed By: #### C BCWD, BMP, ANION, EGFR1 #### [address] [address] Eosinophils/100 WBC (Bld) 2.0 % Normal [facility] Comment on above: Performed By: #### C BCWD, BMP, ANION, EGFR1 #### [address] [address] Erythrocyte distribution width (RBC) [Ratio] 15.2 % High 11.5-14.5 [facility] Comment on above: Performed By: #### C BCWD, BMP, ANION, EGFR1 #### [address] [address] Hematocrit (Bld) [Volume fraction] 23.1 % Low 37.0-47.0 [facility] Comment on above: Performed By: #### C BCWD, BMP, ANION, EGFR1 #### [facility] [address] [place] [address] Hemoglobin (Bld) [Mass/Vol] 7.0 gm/dl Critically low 12.0-16.0 [facility] Comment on above: Performed By: #### C BCWD, BMP, ANION, EGFR1 #### [facility] [address] [place] [address] IMMATURE GRANS (IG) 0.7 % Normal [facility] Comment on above: Performed By: #### C BCWD, BMP, ANION, EGFR1 #### [address] [address] Lymphocytes (Bld) [#/Vol] 2.0 thou/mm3 Normal 1.0-4.8 [facility] Comment on above: Performed By: #### C BCWD, BMP, ANION, EGFR1 #### [address] [address] Lymphocytes/100 WBC (Bld) 19.6 % Normal [facility] Comment on above: Performed By: #### C BCWD, BMP, ANION, EGFR1 #### [place] [address] MCH (RBC) [Entitic mass] 29.4 pg Normal 26.0-33.0 [facility] Comment on above: Performed By: #### C BCWD, BMP, ANION, EGFR1 #### [place] [address] MCHC (RBC) [Mass/Vol] 30.3 gm/dl Low 32.2-35.5 [facility] Comment on above: Performed By: #### C BCWD, BMP, ANION, EGFR1 #### [address] [address] MCV (RBC) [Entitic vol] 97.1 fL Normal 81.0-99.0 [facility] Comment on above: Performed By: #### C BCWD, BMP, ANION, EGFR1 #### [address] [address] Monocytes (Bld) [#/Vol] 0.9 thou/mm3 Normal 0.4-1.3 [facility] Comment on above: Performed By: #### C BCWD, BMP, ANION, EGFR1 #### [address] [address] Monocytes/100 WBC (Bld) 8.4 % Normal [facility] Comment on above: Performed By: #### C BCWD, BMP, ANION, EGFR1 #### [facility] [employer] [address] [address] Neutrophils/100 WBC (Bld) 69.1 % Normal [facility] Comment on above: Performed By: #### C BCWD, BMP, ANION, EGFR1 #### [address] [address] Nucleated RBC/100 WBC (Bld) [Ratio] 0 /[address] [facility] Comment on above: Performed By: #### C BCWD, BMP, ANION, EGFR1 #### [address] [address] Platelet mean volume (Bld) [Entitic vol] 9.5 fL Normal 9.4-12.4 [facility] Comment on above: Performed By: #### C BCWD, BMP, ANION, EGFR1 #### [address] [address] Platelets (Bld) [#/Vol] 385 thou/mm3 Normal 130-400 [facility] Comment on above: Performed By: #### C BCWD, BMP, ANION, EGFR1 #### [address] [address] RBC (Bld) [#/Vol] 2.38 mill/mm3 Low 4.20-5.40 [facility] Comment on above: Performed By: #### C BCWD, BMP, ANION, EGFR1 #### [address] [address] RDW-SD 53.4 fL High 35.0-45.0 [facility] Comment on above: Performed By: #### C BCWD, BMP, ANION, EGFR1 #### [facility] [address] [place] [address] WBC (Bld) [#/Vol] 10.2 thou/mm3 Normal 4.8-10.8 [facility] Comment on above: Performed By: #### C BCWD, BMP, ANION, EGFR1 #### [facility] [address] [address] GFR, ESTIMATEDon 05-14-2020 GFR/1.73 sq M.predicted MDRD (S/P/Bld) [Vol rate/Area] 47 ml/min/1.73m2 Ab[address] [facility] Comment on above: Result Comment: Stag e [...] #### C BCWD, BMP, ANION, EGFR1 #### [facility] [address] [place] [address] Glomerular Filtration Rate, Estimatedon 05-14-2020 Est, Glom Filt Rate 47 Abnormal ml/min/1 .73m 2 [place], [place] Comment on above: Stage Description GF [...] Vol. 139 (2) pg 137-147. Performed at [facility] [address] [place] [address] HGB,HCTon 05-14-2020 Hematocrit (Bld) [Volume fraction] 27.1 % Low 37.0-47.0 [facility] Comment on above: Performed By: #### C BCWD, BMP, ANION, EGFR1 #### [facility] [address] [place] [address] Hemoglobin (Bld) [Mass/Vol] 8.2 gm/dl Low 12.0-16.0 [facility] Comment on above: Performed By: #### C BCWD, BMP, ANION, EGFR1 #### [facility] [address] [place] [address] Hemoglobin and hematocrit, b loodon 05-14-2020 Hematocrit (Bld) [Volume fraction] 27.1 % Low 37 - 47 % [place] Comment on above: Performed at [facility] [address] [place] [address] Hemoglobin (Bld) [Mass/Vol] 8.2 g/dL Low [place] Interpretation and review of laboratory results Abnormal [place] [employer] [facility]Con 0 -1 IRR LEUKO-REDUCED RC [id number] transfused Normal [facility] Comment on above: Performed By: #### C BCWD, BMP, ANION, EGFR1 #### [facility] [address] [address] Otheron 05-14-2020 Interpretation and review of laboratory results Abnormal [place] SCAN OF BLOOD SMEARon 2019 SCAN OF BLOOD SMEAR see below Normal [facility] Comment on above: Result Comment: Crit eria Exceeded; Scan of Differential Slide Performed Performed By: #### C BCWD, BMP, ANION, EGFR1 #### [facility] [address] [place] [address] Scan of Blood Smearon 2019 SCAN OF BLOOD SMEAR see below [place] Comment on above: Criteria Exceeded; S can of Differential Slide Performed Performed [place] [address] TYPE AND SCREENon 05-14-2020 ABO A [place], [place] Rh Factor Positive [place] TYPE AND SCREEN CAPTUREon ABO CAPTURE A Normal [facility] Comment on above: Performed By: #### C BCWD, BMP, ANION, EGFR1 #### [facility] [address] [place] [address] INDIRECT AUTUMN CAPTURE Negative Normal [facility] Comment on above: Performed By: #### C BCWD, BMP, ANION, EGFR1 #### [facility] [address] [place] [address] RH CAPTURE (2 D CLONES) Positive Normal [facility] Comment on above: Performed By: #### C BCWD, BMP, ANION, EGFR1 #### [facility] [address] [place] [address] XR FOOT LEFT (MIN 3 VIEWS)on 05-14-2020 [...] Rodrick Baker MD 05/14/[address] [facility] 1. Osteoporosis. Multifocal degenerative changes. 2. Soft tissue swelling of the foot. Questionable small erosion first metatarsal head versus cortical cyst.. Cannot exclude gout. This report has been created using voice recognition software. It may contain minor errors which are inherent in voice recognition technology. Final report electronically signed by Dr. Rodrick Baker on 05/14/2020 8:45 AM [facility], [place] PROCEDURE: XR FOOT LEFT (MIN 3 VIEWS) [...] the first metatarsal head. Cannot exclude gout. [place], [place], [facility] Incoming Radiant Results From [employer] - 05/14/2020 8:47 AM EDT PROCEDURE: XR [...] Dr. Rodrick Baker on 05/14/2020 8:45 AM [place] ANION GAPon 05-13-2020 Anion gap [Moles/Vol] 10.0 mmol/L Normal 8.0-16.0 [facility] Comment on above: Result Comment: ANIO N GAP = Sodium -(Chloride + CO2) Performed By: #### C EDITA ELIZABETH, ANION, EGFR1 #### [facility] [address] [place] [address] Anion Gapon 05-13-2020 Anion gap [Moles/Vol] 10.0 mmol/L 8 - 16 meq/L [facility] [place] Comment on above: ANION GAP = Sodium - (Chloride + CO2) Performed at [facility] [address] [place] [address] BASIC METABOL PANELon 2019 Calcium [Mass/Vol] 7.8 mg/dL Low 8.5-10.5 [facility] Comment on above: Performed By: #### C BCWD, BMP, ANION, EGFR1 #### [facility] [address] [place] [address] Chloride [Moles/Vol] 102 mmol/L Normal 98-111 [facility] Comment on above: Performed By: #### C BCWD, BMP, ANION, EGFR1 #### [facility] [address] [place] [address] CO2 [Moles/Vol] 23 mmol/L Normal 23-33 [facility] Comment on above: Performed By: #### C BCWD, BMP, ANION, EGFR1 #### [facility] [address] [place] [address] Creatinine [Mass/Vol] 1.0 mg/dL Normal 0.4-1.2 [facility] Comment on above: Performed By: #### C BCWD, BMP, ANION, EGFR1 #### [facility] [address] [place] [address] Glucose [Mass/Vol] 151 mg/dL High 70-108 [facility] Comment on above: Performed By: #### C BCWD, BMP, ANION, EGFR1 #### [facility] [address] [place] [address] Potassium [Moles/Vol] 4.0 mmol/L Normal 3.5-5.2 [facility] Comment on above: Performed By: #### C BCWD, BMP, ANION, EGFR1 #### [facility] [address] [place] [address] Sodium [Moles/Vol] 135 mmol/L Normal 135-145 [facility] Comment on above: Performed By: #### C BCWD, BMP, ANION, EGFR1 #### [facility] [address] [place] [address] Urea nitrogen [Mass/Vol] 18 mg/dL Normal 7-22 [facility] Comment on above: Performed By: #### C BCWD, BMP, ANION, EGFR1 #### [facility] [address] [place] [address] Basic Metabolic Panelon 04-27 Calcium [Mass/Vol] 7.8 mg/dL Low 8.5 - 10. 5 mg/dL [place] Comment on above: Performed at [facility] [address] [place] [address] Chloride [Moles/Vol] 102 mmol/L 98 - 11 1 meq/L [place] CO2 [Moles/Vol] 23 mmol/L 23 - 33 meq/L [place] Creatinine [Mass/Vol] 1 mg/dL 0.4 - 1.2 mg/dL [place] Glucose [Mass/Vol] 151 mg/dL High 70 - 108 mg/dL [place] Potassium [Moles/Vol] 4.0 mmol/L 3.5 - 5.2 meq/L [place] Sodium [Moles/Vol] 135 mmol/L 135 - 145 meq/L [place] Urea nitrogen [Mass/Vol] 18 mg/dL 7 - 22 mg/dL [place] CBC Auto Differentialon 04-27 Basophils (Bld) [#/Vol] 0.0 10*3/uL [place] Basophils/100 WBC (Bld) 0.1 % [place] Eosinophils (Bld) [#/Vol] 0.1 10*3/uL [place] Eosinophils/100 WBC (Bld) 1.3 % [place] Erythrocyte distribution width (RBC) [Ratio] 15.1 % High 11.5 - 14.5 % [place] Hematocrit (Bld) [Volume fraction] 25.0 % Low 37 - 47 % [place] Hemoglobin (Bld) [Mass/Vol] 7.6 g/dL Low [place] Immature Grans (Abs) 0.12 [place], [place] Immature granulocytes (Bld) [#/Vol] 1 % [place] Interpretation and review of laboratory results Abnormal [place] Lymphocytes (Bld) [#/Vol] 1.5 10*3/uL [place] Lymphocytes/100 WBC (Bld) 13.4 % [place] MCH (RBC) [Entitic mass] 30.0 pg 26 - 33 pg [place] MCHC (RBC) [Mass/Vol] 30.4 g/dL [place], [place] MCV (RBC) [Entitic vol] 98.8 fL 81 - 99 fL [place], [place] Monocytes (Bld) [#/Vol] 0.8 10*3/uL [place] Monocytes/100 WBC (Bld) 7.3 % [place] Nucleated RBC/100 WBC (Bld) [Ratio] 0 % /100 wbc [place] Comment on above: Performed at [facility] [address] [place] [address] Platelet mean volume (Bld) [Entitic vol] 9.5 fL 9.4 - 12.4 fL [place] Platelets (Bld) [#/Vol] 396 10*3/uL [place] RBC (Bld) [#/Vol] 2.53 10*6/uL [place], [place] RDW-SD 54.4 fL High 35 - 45 fL [place], [place] Segmented neutrophils/100 WBC (Bld) 76.9 % [place] Segs Absolute 8.8 [place], [place] WBC (Bld) [#/Vol] 11.5 10*3/uL [place], [place] CBC WITH DIFFERENTIALon 04-27 ABS IMMATURE GRANS (IG) 0.12 thou/mm3 High 0.00-0.07 [facility] Comment on above: Performed By: #### C BCWD, BMP, ANION, EGFR1 #### [facility] [address] [place] [address] ABS NEUTROPHILS 8.8 thou/mm3 High 1.8-7.7 [facility] Comment on above: Performed By: #### C BCWD, BMP, ANION, EGFR1 #### [facility] [address] [place] [address] Basophils (Bld) [#/Vol] 0.0 thou/mm3 Normal 0.0-0.1 [facility] Comment on above: Performed By: #### C BCWD, BMP, ANION, EGFR1 #### [facility] [address] [place] [address] Basophils/100 WBC (Bld) 0.1 % Normal [facility] Comment on above: Performed By: #### C BCWD, BMP, ANION, EGFR1 #### [facility] [address] [place] [address] Eosinophils (Bld) [#/Vol] 0.1 thou/mm3 Normal 0.0-0.4 [facility] Comment on above: Performed By: #### C BCWD, BMP, ANION, EGFR1 #### [facility] [address] [place] [address] Eosinophils/100 WBC (Bld) 1.3 % Normal [facility] Comment on above: Performed By: #### C BCWD, BMP, ANION, EGFR1 #### [facility] [address] [place] [address] Erythrocyte distribution width (RBC) [Ratio] 15.1 % High 11.5-14.5 [facility] Comment on above: Performed By: #### C BCWD, BMP, ANION, EGFR1 #### [facility] [address] [place] [address] Hematocrit (Bld) [Volume fraction] 25.0 % Low 37.0-47.0 [facility] Comment on above: Performed By: #### C BCWD, BMP, ANION, EGFR1 #### [facility] [address] [place] [address] Hemoglobin (Bld) [Mass/Vol] 7.6 gm/dl Low 12.0-16.0 [facility] Comment on above: Performed By: #### C BCWD, BMP, ANION, EGFR1 #### [facility] [address] [place] [address] IMMATURE GRANS (IG) 1.0 % Normal [facility] Comment on above: Performed By: #### C BCWD, BMP, ANION, EGFR1 #### [facility] [address] [place] [address] Lymphocytes (Bld) [#/Vol] 1.5 thou/mm3 Normal 1.0-4.8 [facility] Comment on above: Performed By: #### C BCWD, BMP, ANION, EGFR1 #### [address] [address] Lymphocytes/100 WBC (Bld) 13.4 % Normal [facility] Comment on above: Performed By: #### C BCWD, BMP, ANION, EGFR1 #### [address] [address] MCH (RBC) [Entitic mass] 30.0 pg Normal 26.0-33.0 [facility] Comment on above: Performed By: #### C BCWD, BMP, ANION, EGFR1 #### [address] [address] MCHC (RBC) [Mass/Vol] 30.4 gm/dl Low 32.2-35.5 [facility] Comment on above: Performed By: #### C BCWD, BMP, ANION, EGFR1 #### [address] [address] MCV (RBC) [Entitic vol] 98.8 fL Normal 81.0-99.0 [facility] Comment on above: Performed By: #### C BCWD, BMP, ANION, EGFR1 #### [address] [address] Monocytes (Bld) [#/Vol] 0.8 thou/mm3 Normal 0.4-1.3 [facility] Comment on above: Performed By: #### C BCWD, BMP, ANION, EGFR1 #### [address] [address] Monocytes/100 WBC (Bld) 7.3 % Normal [facility] Comment on above: Performed By: #### C BCWD, BMP, ANION, EGFR1 #### [address] [address] Neutrophils/100 WBC (Bld) 76.9 % Normal [facility] Comment on above: Performed By: #### C BCWD, BMP, ANION, EGFR1 #### [address] [address] Nucleated RBC/100 WBC (Bld) [Ratio] 0 /[address] [facility] Comment on above: Performed By: #### C BCWD, BMP, ANION, EGFR1 #### [address] [address] Platelet mean volume (Bld) [Entitic vol] 9.5 fL Normal 9.4-12.4 [facility] Comment on above: Performed By: #### C BCWD, BMP, ANION, EGFR1 #### [address] [address] Platelets (Bld) [#/Vol] 396 thou/mm3 Normal 130-400 [facility] Comment on above: Performed By: #### C BCWD, BMP, ANION, EGFR1 #### [address] [address] RBC (Bld) [#/Vol] 2.53 mill/mm3 Low 4.20-5.40 [facility] Comment on above: Performed By: #### C BCWD, BMP, ANION, EGFR1 #### [address] [address] RDW-SD 54.4 fL High 35.0-45.0 [facility] Comment on above: Performed By: #### C BCWD, BMP, ANION, EGFR1 #### [address] [address] WBC (Bld) [#/Vol] 11.5 thou/mm3 High 4.8-10.8 [facility] Comment on above: Performed By: #### C BCWD, BMP, ANION, EGFR1 #### [facility] [address] [address] GFR, ESTIMATEDon 05-13-2020 GFR/1.73 sq M.predicted MDRD (S/P/Bld) [Vol rate/Area] 53 ml/min/1.73m2 Abnormal [facility] Comment on above: Result Comment: Aris alford [...] #### C BCWD, BMP, ANION, EGFR1 #### [facility] [address] [place] [address] Glomerular Filtration Rate, Estimatedon 05-13-2020 Est, Glom Filt Rate 53 Abnormal ml/min/1 .73m 2 [place], [place] Comment on above: Stage Description GF [...] Vol. 139 (2) pg 137-147. Performed at [facility] [address] [place] [address] Otheron 05-13-2020 Interpretation and review of laboratory results Abnormal [place] ANION GAPon 05-12-2020 Anion gap [Moles/Vol] 8.0 mmol/L Normal 8.0-16.0 [facility] Comment on above: Result Comment: ANIO N GAP = Sodium -(Chloride + CO2) Performed By: #### B MP, ANION, EGFR1, CBCWD #### [facility] [address] [place] [address] Anion Gapon 05-12-2020 Anion gap [Moles/Vol] 8.0 mmol/L 8 - 16 meq/L [place] Comment on above: ANION GAP = Sodium - (Chloride + CO2) Performed at [facility] [address] [place] [address] BASIC METABOL PANELon 2019 Calcium [Mass/Vol] 7.7 mg/dL Low 8.5-10.5 [facility] Comment on above: Performed By: #### B MP, ANION, EGFR1, CBCWD #### [facility] [address] [place] [address] Chloride [Moles/Vol] 105 mmol/L Normal 98-111 [facility] Comment on above: Performed By: #### B MP, ANION, EGFR1, CBCWD #### [facility] [address] [place] [address] CO2 [Moles/Vol] 24 mmol/L Normal 23-33 [facility] Comment on above: Performed By: #### B MP, ANION, EGFR1, CBCWD #### [facility] [address] [place] [address] Creatinine [Mass/Vol] 1.1 mg/dL Normal 0.4-1.2 [facility] Comment on above: Performed By: #### B MP, ANION, EGFR1, CBCWD #### [facility] [address] [place] [address] Glucose [Mass/Vol] 123 mg/dL High 70-108 [facility] Comment on above: Performed By: #### B MP, ANION, EGFR1, CBCWD #### [facility] [address] [place] [address] Potassium [Moles/Vol] 3.9 mmol/L Normal 3.5-5.2 [facility] Comment on above: Performed By: #### B MP, ANION, EGFR1, CBCWD #### [facility] [address] [place] [address] Sodium [Moles/Vol] 137 mmol/L Normal 135-145 [facility] Comment on above: Performed By: #### B MP, ANION, EGFR1, CBCWD #### [facility] [address] [place] [address] Urea nitrogen [Mass/Vol] 20 mg/dL Normal 7-22 [facility] Comment on above: Performed By: #### B MP, ANION, EGFR1, CBCWD #### [facility] [address] [place] [address] Basic Metabolic Panelon 04-27 Calcium [Mass/Vol] 7.7 mg/dL Low 8.5 - 10. 5 mg/dL [place] Comment on above: Performed at [facility] [address] [place] [address] Chloride [Moles/Vol] 105 mmol/L 98 - 11 1 meq/L [place] CO2 [Moles/Vol] 24 mmol/L 23 - 33 meq/L [place] Creatinine [Mass/Vol] 1.1 mg/dL 0.4 - 1.2 mg/dL [place] Glucose [Mass/Vol] 123 mg/dL High 70 - 108 mg/dL [place] Potassium [Moles/Vol] 3.9 mmol/L 3.5 - 5.2 meq/L [place] Sodium [Moles/Vol] 137 mmol/L 135 - 145 meq/L [place] Urea nitrogen [Mass/Vol] 20 mg/dL 7 - 22 mg/dL [place] Bladder scanon 05-12-2020 Dora Costa 05/12/2020 1:12 PM Bladder scan was completed by Sadie Costa at 1245pm. The residual amount of 725ml was resulted to Mirza WESLEY. [place], [place] Flora Nesbitt 05/12/2020 12:25 AM A Bladder scan was performed at 0021 . The patient's last void was at has not voided since she was straight cathed at 15:30. The residual amount was measured to be 656 ML. Report of results was given to Missy WESLEY. [place], [place] CBC Auto Differentialon 04-27 Basophils (Bld) [#/Vol] 0.0 10*3/uL [place] Basophils/100 WBC (Bld) 0.1 % [place] Eosinophils (Bld) [#/Vol] 0.2 10*3/uL [place] Eosinophils/100 WBC (Bld) 2.4 % [place] Erythrocyte distribution width (RBC) [Ratio] 15 % High 11.5 - 14.5 % [place] Hematocrit (Bld) [Volume fraction] 24.8 % Low 37 - 47 % [place] Hemoglobin (Bld) [Mass/Vol] 7.4 g/dL [place], [place] Immature Grans (Abs) 0.06 [place], [place] Immature granulocytes (Bld) [#/Vol] 0.6 % [place] Interpretation and review of laboratory results Abnormal [place] Lymphocytes (Bld) [#/Vol] 1.4 10*3/uL [place] Lymphocytes/100 WBC (Bld) 14.9 % [place] MCH (RBC) [Entitic mass] 29.4 pg 26 - 33 pg [place] MCHC (RBC) [Mass/Vol] 29.8 g/dL [place], [place] MCV (RBC) [Entitic vol] 98.4 fL 81 - 99 fL [place], [place] Monocytes (Bld) [#/Vol] 0.9 10*3/uL [place] Monocytes/100 WBC (Bld) 8.9 % [place] Nucleated RBC/100 WBC (Bld) [Ratio] 0 % /100 wbc [place], [place] Comment on above: Performed at [facility] [address] [place] [address] Platelet mean volume (Bld) [Entitic vol] 9.6 fL 9.4 - 12.4 fL [place] Platelets (Bld) [#/Vol] 370 10*3/uL [place] RBC (Bld) [#/Vol] 2.52 10*6/uL [place] RDW-SD 54 fL High 35 - 45 fL [place] Segmented neutrophils/100 WBC (Bld) 73.1 % [place] Segs Absolute 7.0 [place] WBC (Bld) [#/Vol] 9.6 10*3/uL [place] CBC WITH DIFFERENTIALon 04-27 ABS IMMATURE GRANS (IG) 0.06 thou/mm3 Normal 0.00-0.07 [facility] Comment on above: Performed By: #### B MP, ANION, EGFR1, CBCWD #### [facility] [address] [place] [address] ABS NEUTROPHILS 7.0 thou/mm3 Normal 1.8-7.7 [facility] Comment on above: Performed By: #### B MP, ANION, EGFR1, CBCWD #### [facility] [address] [place] [address] Basophils (Bld) [#/Vol] 0.0 thou/mm3 Normal 0.0-0.1 [facility] Comment on above: Performed By: #### B MP, ANION, EGFR1, CBCWD #### [address] [address] Basophils/100 WBC (Bld) 0.1 % Normal [facility] Comment on above: Performed By: #### B MP, ANION, EGFR1, CBCWD #### [address] [address] Eosinophils (Bld) [#/Vol] 0.2 thou/mm3 Normal 0.0-0.4 [facility] Comment on above: Performed By: #### B MP, ANION, EGFR1, CBCWD #### [address] [address] Eosinophils/100 WBC (Bld) 2.4 % Normal [facility] Comment on above: Performed By: #### B MP, ANION, EGFR1, CBCWD #### [address] [address] Erythrocyte distribution width (RBC) [Ratio] 15.0 % High 11.5-14.5 [facility] Comment on above: Performed By: #### B MP, ANION, EGFR1, CBCWD #### [facility] [address] [place] [address] Hematocrit (Bld) [Volume fraction] 24.8 % Low 37.0-47.0 [facility] Comment on above: Performed By: #### B MP, ANION, EGFR1, CBCWD #### [facility] [address] [place] [address] Hemoglobin (Bld) [Mass/Vol] 7.4 gm/dl Low 12.0-16.0 [facility] Comment on above: Performed By: #### B MP, ANION, EGFR1, CBCWD #### [address] [address] IMMATURE GRANS (IG) 0.6 % Normal [facility] Comment on above: Performed By: #### B MP, ANION, EGFR1, CBCWD #### [address] [address] Lymphocytes (Bld) [#/Vol] 1.4 thou/mm3 Normal 1.0-4.8 [facility] Comment on above: Performed By: #### B MP, ANION, EGFR1, CBCWD #### [place] [id number] Lymphocytes/100 WBC (Bld) 14.9 % Normal [facility] Comment on above: Performed By: #### B MP, ANION, EGFR1, CBCWD #### [place] [address] MCH (RBC) [Entitic mass] 29.4 pg Normal 26.0-33.0 [facility] Comment on above: Performed By: #### B MP, ANION, EGFR1, CBCWD #### [address] [address] MCHC (RBC) [Mass/Vol] 29.8 gm/dl Low 32.2-35.5 [facility] Comment on above: Performed By: #### B MP, ANION, EGFR1, CBCWD #### [address] [address] MCV (RBC) [Entitic vol] 98.4 fL Normal 81.0-99.0 [facility] Comment on above: Performed By: #### B MP, ANION, EGFR1, CBCWD #### [address] [address] Monocytes (Bld) [#/Vol] 0.9 thou/mm3 Normal 0.4-1.3 [facility] Comment on above: Performed By: #### B MP, ANION, EGFR1, CBCWD #### [facility] [address] [place] [address] Monocytes/100 WBC (Bld) 8.9 % Normal [facility] Comment on above: Performed By: #### B MP, ANION, EGFR1, CBCWD #### [address] [address] Neutrophils/100 WBC (Bld) 73.1 % Normal [facility] Comment on above: Performed By: #### B MP, ANION, EGFR1, CBCWD #### [address] [address] Nucleated RBC/100 WBC (Bld) [Ratio] 0 /[address] [facility] Comment on above: Performed By: #### B MP, ANION, EGFR1, CBCWD #### [address] [address] Platelet mean volume (Bld) [Entitic vol] 9.6 fL Normal 9.4-12.4 [facility] Comment on above: Performed By: #### B MP, ANION, EGFR1, CBCWD #### [address] [address] Platelets (Bld) [#/Vol] 370 thou/mm3 Normal 130-400 [facility] Comment on above: Performed By: #### B MP, ANION, EGFR1, CBCWD #### [address] [address] RBC (Bld) [#/Vol] 2.52 mill/mm3 Low 4.20-5.40 [facility] Comment on above: Performed By: #### B MP, ANION, EGFR1, CBCWD #### [address] [address] RDW-SD 54.0 fL High 35.0-45.0 [facility] Comment on above: Performed By: #### B MP, ANION, EGFR1, CBCWD #### [address] [address] WBC (Bld) [#/Vol] 9.6 thou/mm3 Normal 4.8-10.8 [facility] Comment on above: Performed By: #### B MP, ANION, EGFR1, CBCWD #### [facility] [address] [place] [address] GFR, ESTIMATEDon 05-12-2020 GFR/1.73 sq M.predicted MDRD (S/P/Bld) [Vol rate/Area] 47 ml/min/1.73m2 Ab[address] [facility] Comment on above: Result Comment: Stag e [...] #### B MP, ANION, EGFR1, CBCWD #### [facility] [address] [place] [address] Glomerular Filtration Rate, Estimatedon 05-12-2020 Est, Glom Filt Rate 47 Abnormal ml/min/1 .73m 2 [place], [place] Comment on above: Stage Description GF [...] Vol. 139 (2) pg 137-147. Performed at [facility] [address] [place] [address] Otheron 05-12-2020 Interpretation and review of laboratory results Abnormal [place] ANION GAPon 05-11-2020 Anion gap [Moles/Vol] 11.0 mmol/L Normal 8.0-16.0 [facility] Comment on above: Result Comment: ANIO N GAP = Sodium -(Chloride + CO2) Performed By: #### C BCWD, BMP, ANION, EGFR1 #### [facility] [address] [place] [address] Anion Gapon 05-11-2020 Anion gap [Moles/Vol] 11.0 mmol/L 8 - 16 meq/L [place] Comment on above: ANION GAP = Sodium - (Chloride + CO2) Performed at [facility] [address] [place] [address] BASIC METABOL PANELon 2019 Calcium [Mass/Vol] 8.1 mg/dL Low 8.5-10.5 [facility] Comment on above: Performed By: #### C BCWD, BMP, ANION, EGFR1 #### [facility] [address] [place] [address] Chloride [Moles/Vol] 107 mmol/L Normal 98-111 [facility] Comment on above: Performed By: #### C BCWD, BMP, ANION, EGFR1 #### [facility] [address] [place] [address] CO2 [Moles/Vol] 24 mmol/L Normal 23-33 [facility] Comment on above: Performed By: #### C BCWD, BMP, ANION, EGFR1 #### [facility] [address] [place] [address] Creatinine [Mass/Vol] 1.1 mg/dL Normal 0.4-1.2 [facility] Comment on above: Performed By: #### C BCWD, BMP, ANION, EGFR1 #### [facility] [address] [place] [address] Glucose [Mass/Vol] 131 mg/dL High 70-108 [facility] Comment on above: Performed By: #### C BCWD, BMP, ANION, EGFR1 #### [facility] [address] [place] [address] Potassium [Moles/Vol] 4.3 mmol/L Normal 3.5-5.2 [facility] Comment on above: Performed By: #### C BCWD, BMP, ANION, EGFR1 #### [facility] [address] [place] [address] Sodium [Moles/Vol] 142 mmol/L Normal 135-145 [facility] Comment on above: Performed By: #### C BCWD, BMP, ANION, EGFR1 #### [facility] [address] [place] [address] Urea nitrogen [Mass/Vol] 23 mg/dL High 7-22 [facility] Comment on above: Performed By: #### C BCWD, BMP, ANION, EGFR1 #### [facility] [address] [place] [address] Basic Metabolic Panelon 04-27 Calcium [Mass/Vol] 8.1 mg/dL Low 8.5 - 10. 5 mg/dL [place] Comment on above: Performed at [facility] [address] [place] [address] Chloride [Moles/Vol] 107 mmol/L 98 - 11 1 meq/L [place] CO2 [Moles/Vol] 24 mmol/L 23 - 33 meq/L [place] Creatinine [Mass/Vol] 1.1 mg/dL 0.4 - 1.2 mg/dL [place] Glucose [Mass/Vol] 131 mg/dL High 70 - 108 mg/dL [place] Potassium [Moles/Vol] 4.3 mmol/L 3.5 - 5.2 meq/L [place] Sodium [Moles/Vol] 142 mmol/L 135 - 145 meq/L [place] Urea nitrogen [Mass/Vol] 23 mg/dL High 7 - 22 mg/dL [place] Bladder scanon 05-11-2020 Dora Costa 05/11/2020 3:29 PM Bladder scan was completed by Sadie Costa at 1505. The residual amount of 770ml was resulted to Franca WESLEY. [place], [place] CBC Auto Differentialon 04-27 Basophils (Bld) [#/Vol] 0.0 10*3/uL [place] Basophils/100 WBC (Bld) 0.2 % [place] Eosinophils (Bld) [#/Vol] 0.1 10*3/uL [place] Eosinophils/100 WBC (Bld) 0.7 % [place] Erythrocyte distribution width (RBC) [Ratio] 15.5 % High 11.5 - 14.5 % [place] Hematocrit (Bld) [Volume fraction] 30.3 % Low 37 - 47 % [place] Hemoglobin (Bld) [Mass/Vol] 8.9 g/dL [place] Immature Grans (Abs) 0.05 [place] Immature granulocytes (Bld) [#/Vol] 0.5 % [place] Interpretation and review of laboratory results Abnormal [place] Lymphocytes (Bld) [#/Vol] 1.4 10*3/uL [place] Lymphocytes/100 WBC (Bld) 14.7 % [place] MCH (RBC) [Entitic mass] 29.5 pg 26 - 33 pg [place] MCHC (RBC) [Mass/Vol] 29.4 g/dL [place], [place] MCV (RBC) [Entitic vol] 100.3 fL High 81 - 99 fL [place], [place] Monocytes (Bld) [#/Vol] 0.9 10*3/uL [place] Monocytes/100 WBC (Bld) 9.6 % [place] Nucleated RBC/100 WBC (Bld) [Ratio] 0 % /100 wbc [place] Comment on above: Performed at [facility] [address] [place] [address] Platelet mean volume (Bld) [Entitic vol] 9.5 fL 9.4 - 12.4 fL [place] Platelets (Bld) [#/Vol] 445 10*3/uL [place] RBC (Bld) [#/Vol] 3.02 10*6/uL [place] RDW-SD 57.2 fL High 35 - 45 fL [place], [place] Segmented neutrophils/100 WBC (Bld) 74.3 % [place], [place] Segs Absolute 7.2 [place] WBC (Bld) [#/Vol] 9.7 10*3/uL [place] CBC WITH DIFFERENTIALon 04-27 ABS IMMATURE GRANS (IG) 0.05 thou/mm3 Normal 0.00-0.07 [facility] Comment on above: Performed By: #### C BCWD, BMP, ANION, EGFR1 #### [facility] [address] [place] [address] ABS NEUTROPHILS 7.2 thou/mm3 Normal 1.8-7.7 [facility] Comment on above: Performed By: #### C BCWD, BMP, ANION, EGFR1 #### [facility] [address] [place] [address] Basophils (Bld) [#/Vol] 0.0 thou/mm3 Normal 0.0-0.1 [facility] Comment on above: Performed By: #### C BCWD, BMP, ANION, EGFR1 #### [facility] [address] [place] [address] Basophils/100 WBC (Bld) 0.2 % Normal [facility] Comment on above: Performed By: #### C BCWD, BMP, ANION, EGFR1 #### [facility] [address] [place] [address] Eosinophils (Bld) [#/Vol] 0.1 thou/mm3 Normal 0.0-0.4 [facility] Comment on above: Performed By: #### C BCWD, BMP, ANION, EGFR1 #### [facility] [address] [place] [address] Eosinophils/100 WBC (Bld) 0.7 % Normal [facility] Comment on above: Performed By: #### C BCWD, BMP, ANION, EGFR1 #### [facility] [address] [place] [address] Erythrocyte distribution width (RBC) [Ratio] 15.5 % High 11.5-14.5 [facility] Comment on above: Performed By: #### C BCWD, BMP, ANION, EGFR1 #### [facility] [address] [place] [address] Hematocrit (Bld) [Volume fraction] 30.3 % Low 37.0-47.0 [facility] Comment on above: Performed By: #### C BCWD, BMP, ANION, EGFR1 #### [place] [address] Hemoglobin (Bld) [Mass/Vol] 8.9 gm/dl Low 12.0-16.0 [facility] Comment on above: Performed By: #### C BCWD, BMP, ANION, EGFR1 #### [place] [address] IMMATURE GRANS (IG) 0.5 % Normal [facility] Comment on above: Performed By: #### C BCWD, BMP, ANION, EGFR1 #### [place] [address] Lymphocytes (Bld) [#/Vol] 1.4 thou/mm3 Normal 1.0-4.8 [facility] Comment on above: Performed By: #### C BCWD, BMP, ANION, EGFR1 #### [place] [address] Lymphocytes/100 WBC (Bld) 14.7 % Normal [facility] Comment on above: Performed By: #### C BCWD, BMP, ANION, EGFR1 #### [place] [address] MCH (RBC) [Entitic mass] 29.5 pg Normal 26.0-33.0 [facility] Comment on above: Performed By: #### C BCWD, BMP, ANION, EGFR1 #### [place] [address] MCHC (RBC) [Mass/Vol] 29.4 gm/dl Low 32.2-35.5 [facility] Comment on above: Performed By: #### C BCWD, BMP, ANION, EGFR1 #### [place] [id number] MCV (RBC) [Entitic vol] 100.3 fL High 81.0-99.0 [facility] Comment on above: Performed By: #### C BCWD, BMP, ANION, EGFR1 #### [facility] [address] [address] Monocytes (Bld) [#/Vol] 0.9 thou/mm3 Normal 0.4-1.3 [facility] Comment on above: Performed By: #### C BCWD, BMP, ANION, EGFR1 #### [facility] [address] [address] Monocytes/100 WBC (Bld) 9.6 % Normal [facility] Comment on above: Performed By: #### C BCWD, BMP, ANION, EGFR1 #### [facility] [address] [place] [address] Neutrophils/100 WBC (Bld) 74.3 % Normal [facility] Comment on above: Performed By: #### C BCWD, BMP, ANION, EGFR1 #### [facility] [address] [address] Nucleated RBC/100 WBC (Bld) [Ratio] 0 /[address] [facility] Comment on above: Performed By: #### C BCWD, BMP, ANION, EGFR1 #### [facility] [address] [place] [address] Platelet mean volume (Bld) [Entitic vol] 9.5 fL Normal 9.4-12.4 [facility] Comment on above: Performed By: #### C BCWD, BMP, ANION, EGFR1 #### [facility] [address] [place] [address] Platelets (Bld) [#/Vol] 445 thou/mm3 High 130-400 [facility] Comment on above: Performed By: #### C BCWD, BMP, ANION, EGFR1 #### [facility] [address] [place] [address] RBC (Bld) [#/Vol] 3.02 mill/mm3 Low 4.20-5.40 [facility] Comment on above: Performed By: #### C BCWD, BMP, ANION, EGFR1 #### [facility] [address] [place] [address] RDW-SD 57.2 fL High 35.0-45.0 [facility] Comment on above: Performed By: #### C BCWD, BMP, ANION, EGFR1 #### [facility] [address] [place] [address] WBC (Bld) [#/Vol] 9.7 thou/mm3 Normal 4.8-10.8 [facility] Comment on above: Performed By: #### C BCWD, BMP, ANION, EGFR1 #### [facility] [address] [place] [address] GFR, ESTIMATEDon 05-11-2020 GFR/1.73 sq M.predicted MDRD (S/P/Bld) [Vol rate/Area] 47 ml/min/1.73m2 Abnormal [facility] Comment on above: Result Comment: Stag e [...] #### C BCWD, BMP, ANION, EGFR1 #### [facility] [address] [place] [address] Glomerular Filtration Rate, Estimatedon 05-11-2020 Est, Glom Filt Rate 47 Abnormal ml/min/1 .73m 2 [place], [place] Comment on above: Stage Description GF [...] Vol. 139 (2) pg 137-147. Performed at [facility] [address] [place] [address] Otheron 05-11-2020 Interpretation and review of laboratory results Abnormal [place] AER/ANAEROBIC CULTURE 04-27 AER/ANAEROBIC CULTURE MICROBIOLOGY [facility], [address] [place] [address], [place], [address] PATIENT: MEENU NOLAN LOCATION: [id number] -[id number] -A : 1935 AGE: 84 SEX: F ADM: 05/10/20 Att. Physician: CHELE LAGOS Order Id: [id number] Req. Physician: CHELE LAGOS Source: tissue Site: [...] 8 h 5-7 >=100 Trimethoprim/Vargas <=20 S [id number]/800mgSMX q 12h 1-2TMP/[id number]/ 97SM IV 160mgTMP/800mgSMX q 8 h9TMP/105 SMX [...] 8 h 5-7 >=100 Trimethoprim/Vargas <=20 S [id number]/800mgSMX q 12h 1-2TMP/[id number]/ 97SM IV 160mgTMP/800mgSMX q 8 h9TMP/105 SMX [...] liver disease consult PDR or pharmacist. Normal [facility] COVID-19on 05-10-2020 COVID-19 BY RT-PCR NOT DETECTED Normal NOT DETECT [facility] Comment on above: Result Comment: This test [...] #### C GLENN, EDITA, ANION, EGFR1 #### [facility] [address] [place] [address] SARS-CoV-2, PCR NOT DETECTED NOT DETECT [facility], [place] Comment on above: This test has been [...] or revoked sooner. METHODOLOGY: RT-PCR Performed at [facility] [address] [place] [address] TYPE AND SCREENon 05-10-2020 ABO A [facility] [place] [place], [place] Rh Factor Positive [facility] [place] TYPE AND SCREEN CAPTUREon ABO CAPTURE A Normal [facility] Comment on above: Performed By: #### C BCWD, BMP, ANION, EGFR1 #### [facility] [address] [place] [address] INDIRECT AUTUMN CAPTURE Negative Normal [facility] Comment on above: Performed By: #### C BCWD, BMP, ANION, EGFR1 #### [facility] [address] [place] [address] RH CAPTURE (2 D CLONES) Positive Normal [facility] Comment on above: Performed By: #### C BCWD, BMP, ANION, EGFR1 #### [facility] [address] [place] [address] XR HIP LEFT (2-3 VIEWS)on XR HIP [...] Benson Edwards MD 05/10/[address] [facility] [place], Wcoh Incoming Radiant Results From [facility] - 05/10/2020 3:32 PM EDT PROCEDURE: XR [...] Dr Benson Edwards on 05/10/2020 3:30 PM [place] PROCEDURE: XR HIP LE FT (2-3 [...] of the arthroplasty likely related to surgery. [place], [place] Status post left tot al hip arthroplasty. This report has been created using voice recognition software. It may contain minor errors which are inherent in voice recognition technology. Final report electronically signed by Dr Benson Edwards on 05/10/2020 3:30 PM [place] Basic Metabolic Panelon 08- Anion gap [Moles/Vol] 10 mmol/L 9 - 17 mmol/L [place] Bun/Cre Ratio 20 [place] Calcium [Mass/Vol] 8.9 mg/dL 8.6 - 10. 4 mg/dL [place] Chloride [Moles/Vol] 105 mmol/L 98 - 10 7 mmol/L [place] CO2 [Moles/Vol] 27 mmol/L 20 - 31 mmol/L [place] Creatinine [Mass/Vol] 1.12 mg/dL High 0.5 - 0.9 mg/dL [place] GFR 56 mL/min Low >60 [place] GFR Non- 47 mL/min Low >60 [place] Glucose [Mass/Vol] 110 mg/dL High 70 - 99 mg/dL [place] Interpretation and review of laboratory results Abnormal [place] Potassium [Moles/Vol] 3.8 mmol/L 3.7 - 5.3 mmol/L [place] Sodium [Moles/Vol] 142 mmol/L 135 - 144 mmol/L [place] Urea nitrogen [Mass/Vol] 22 mg/dL 8 - 23 mg/dL [place] CBCon 05-09-2020 Erythrocyte distribution width (RBC) [Ratio] 15.5 % High 11.8 - 14.4 % [place] Hematocrit (Bld) [Volume fraction] 34.3 % Low 36.3 - 47.1 % [place] Hemoglobin (Bld) [Mass/Vol] 10.2 g/dL Low 11.9 - 15.1 g/dL [place] Interpretation and review of laboratory results Abnormal [place] MCH (RBC) [Entitic mass] 29.4 pg 25.2 - 33.5 pg [place] MCHC (RBC) [Mass/Vol] 29.7 g/dL 28.4 - 34.8 g/dL [place] MCV (RBC) [Entitic vol] 98.8 fL 82.6 - 102.9 fL [place] Platelet mean volume (Bld) [Entitic vol] 9.4 fL 8.1 - 13.5 fL [place] Platelets (Bld) [#/Vol] 512 10*3/uL High [place] RBC (Bld) [#/Vol] 3.47 10*6/uL Low 3.95 - 5.1 1 m/uL [place] WBC (Bld) [#/Vol] 0.0 10*3/uL 0.0 per 10 0 WBC [place] WBC (Bld) [#/Vol] 8.6 10*3/uL [place] Metabolic Panelon 05-09-2020 GFR/1.73 sq M predicted among non-blacks MDRD (S/P/Bld) [Vol rate/Area] [place], [place] Comment on above: Stage 1: Some [...] body mass. Additional eGFR calculator available at: http://www.trueEX/multiple_crcl_2012.htm Microscopic Urinalysison Amorphous, UA NOT REPORTED None [place] Bacteria, UA 2+ Abnormal None [place] Casts UA NOT REPORTED /LPF [place] Crystals, UA NOT REPORTED None /HPF [place] Epithelial Cells UA 0 TO 2 [place] Interpretation and review of laboratory results Abnormal [place] Mucus, UA NOT REPORTED None [place] Other Observations UA NOT REPORTED NOT REQ. [place] RBC (U) [#/Vol] 5 TO 10 [place] Renal Epithelial, UA 0 TO 2 0 /HPF [place] Trichomonas, UA NOT REPORTED None [place] WBC, UA 50 TO 100 [place] Yeast, UA NOT REPORTED None [place] - [place] Urinalysison 05-08-2020 Bilirubin Urine Negative NEGATIVE [place] Color, UA YELLOW YELLOW [place] Glucose, Ur Negative NEGATIVE [place] Interpretation and review of laboratory results Abnormal [place] Ketones Ql (U) Negative NEGATIVE [place] Leukocyte esterase Test strip Ql (U) MODERATE Abnormal NEGATIVE [place] Nitrite, Urine Negative NEGATIVE [place] pH, UA 6.5 [place] Protein (U) [Mass/Vol] TRACE Abnormal NEGATIVE [place] Specific [place], UA 1.020 [place] Turbidity UA SLIGHTLY CLOUDY Abnormal CLEAR [place] Urinalysis Comments NOT REPORTED [place], [place] Urine Hgb 2+ Abnormal NEGATIVE [place] Urobilinogen, Urine Normal Normal [place] Basic Metabolic Panelon Anion gap [Moles/Vol] 17 mmol/L 9 - 17 mmol/L [place] Bun/Cre Ratio 20 [place] Calcium [Mass/Vol] 9.2 mg/dL 8.6 - 10. 4 mg/dL [place] Chloride [Moles/Vol] 97 mmol/L Low 98 - 10 7 mmol/L [place] CO2 [Moles/Vol] 23 mmol/L 20 - 31 mmol/L [place] Creatinine [Mass/Vol] 1.29 mg/dL High 0.5 - 0.9 mg/dL [place] GFR 48 mL/min Low >60 [place] GFR Non- 40 mL/min Low >60 [place] Glucose [Mass/Vol] 209 mg/dL High 70 - 99 mg/dL [place] Interpretation and review of laboratory results Abnormal [place] Potassium [Moles/Vol] 3.7 mmol/L 3.7 - 5.3 mmol/L [place] Sodium [Moles/Vol] 137 mmol/L 135 - 144 mmol/L [place] Urea nitrogen [Mass/Vol] 26 mg/dL High 8 - 23 mg/dL [place] CBC Auto Differentialon Basophils (Bld) [#/Vol] 10*3/uL [place] Basophils/100 WBC (Bld) 0 % 0 - 2 % [place] Differential Type NOT REPORTED [place] Eosinophils (Bld) [#/Vol] 0.17 10*3/uL [place] Eosinophils/100 WBC (Bld) 2 % 1 - 4 % [place] Erythrocyte distribution width (RBC) [Ratio] 15.3 % High 11.8 - 14.4 % [place] Hematocrit (Bld) [Volume fraction] 36.5 % 36.3 - 47.1 % [place] Hemoglobin (Bld) [Mass/Vol] 11.2 g/dL Low 11.9 - 15.1 g/dL [place] Immature granulocytes (Bld) [#/Vol] 1 % High 0 [place] Immature granulocytes (Bld) [#/Vol] 0.05 10*3/uL [place] Interpretation and review of laboratory results Abnormal [place] Lymphocytes (Bld) [#/Vol] 2.30 10*3/uL [place] Lymphocytes/100 WBC (Bld) 21 % Low 24 - 43 % [place] MCH (RBC) [Entitic mass] 30.3 pg 25.2 - 33.5 pg [place] MCHC (RBC) [Mass/Vol] 30.7 g/dL 28.4 - 34.8 g/dL [place] MCV (RBC) [Entitic vol] 98.6 fL 82.6 - 102.9 fL [place] Monocytes (Bld) [#/Vol] 1.01 10*3/uL [place] Monocytes/100 WBC (Bld) 9 % 3 - 12 % [place] Platelet mean volume (Bld) [Entitic vol] 9.7 fL 8.1 - 13.5 fL [place] Platelets (Bld) [#/Vol] NOT REPORTED [place] Platelets (Bld) [#/Vol] 481 10*3/uL [place] RBC (Bld) [#/Vol] 3.70 10*6/uL Low 3.95 - 5.1 1 m/uL [place] RBC morphology finding Nom (Bld) NOT REPORTED [place] Segmented neutrophils/100 WBC (Bld) 67 % High 36 - 65 % [place] Segs Absolute 7.38 [place] WBC (Bld) [#/Vol] 10.9 10*3/uL [place] WBC (Bld) [#/Vol] 0.0 10*3/uL 0.0 per 10 0 WBC [place] WBC Morphology NOT REPORTED [place] Metabolic Panelon 05-03-2020 GFR/1.73 sq M predicted among non-blacks MDRD (S/P/Bld) [Vol rate/Area] [place] Comment on above: Stage 1: Some [...] body mass. Additional eGFR calculator available at: http://www.trueEX/multiple_crcl_2012.htm CBC Auto Differentialon 03-27 Basophils (Bld) [#/Vol] 0.00 10*3/uL [place] Basophils/100 WBC (Bld) 0 % 0 - 2 % [place] Differential Type NOT REPORTED [place] Eosinophils (Bld) [#/Vol] 0.00 10*3/uL [place] Eosinophils/100 WBC (Bld) 0 % Low 1 - 4 % [place] Erythrocyte distribution width (RBC) [Ratio] 15.9 % High 11.8 - 14.4 % [place] Hematocrit (Bld) [Volume fraction] 36.3 % 36.3 - 47.1 % [place] Hemoglobin (Bld) [Mass/Vol] 11.0 g/dL Low 11.9 - 15.1 g/dL [place] Immature granulocytes (Bld) [#/Vol] 4 % High 0 [place] Immature granulocytes (Bld) [#/Vol] 0.51 10*3/uL [place] Interpretation and review of laboratory results Abnormal [place] Lymphocytes (Bld) [#/Vol] 1.40 10*3/uL [place] Lymphocytes/100 WBC (Bld) 11 % Low 24 - 43 % [place] MCH (RBC) [Entitic mass] 30.1 pg 25.2 - 33.5 pg [place] MCHC (RBC) [Mass/Vol] 30.3 g/dL 28.4 - 34.8 g/dL [place] MCV (RBC) [Entitic vol] 99.5 fL 82.6 - 102.9 fL [place] Monocytes (Bld) [#/Vol] 0.76 10*3/uL [place] Monocytes/100 WBC (Bld) 6 % 3 - 12 % [place] Morphology [place] (Bld) [Interp] Normal [place] Platelet mean volume (Bld) [Entitic vol] 10.0 fL 8.1 - 13.5 fL [place] Platelets (Bld) [#/Vol] NOT REPORTED [place] Platelets (Bld) [#/Vol] 613 10*3/uL [place] RBC (Bld) [#/Vol] 3.65 10*6/uL Low 3.95 - 5.1 1 m/uL [place] RBC morphology finding Nom (Bld) NOT REPORTED [place] Segmented neutrophils/100 WBC (Bld) 79 % High 36 - 65 % [place] Segs Absolute 10.03 High [place] WBC (Bld) [#/Vol] 0.0 10*3/uL 0.0 per 10 0 WBC [place] WBC (Bld) [#/Vol] 12.7 10*3/uL [place] WBC Morphology NOT REPORTED [place] Comprehensive Metabolic Pane riddhi 04-10-2020 Albumin [Mass/Vol] 2.4 g/dL Low 3.5 - 5.2 g/dL [place] Albumin/Globulin [Mass ratio] 0.8 {ratio} Low [place] ALP [Catalytic activity/Vol] 136 U/L High 35 - 104 U/L [place] ALT [Catalytic activity/Vol] 29 U/L 5 - 33 U/L [place] Anion gap [Moles/Vol] 11 mmol/L 9 - 17 mmol/L [place] AST [Catalytic activity/Vol] 20 U/L <32 [place] Bilirubin Ql (U) 0.20 mg/dL Low 0.3 - 1.2 mg/dL [place] Bun/Cre Ratio 20 [place] Calcium [Mass/Vol] 8.2 mg/dL Low 8.6 - 10. 4 mg/dL [place] Chloride [Moles/Vol] 100 mmol/L 98 - 10 7 mmol/L [place] CO2 [Moles/Vol] 25 mmol/L 20 - 31 mmol/L [place] Creatinine [Mass/Vol] 1.11 mg/dL High 0.5 - 0.9 mg/dL [place] GFR 57 mL/min Low >60 [place] GFR Non- 47 mL/min Low >60 [place] Glucose [Mass/Vol] 135 mg/dL High 70 - 99 mg/dL [place] Interpretation and review of laboratory results Abnormal [place] Potassium [Moles/Vol] 3.6 mmol/L Low 3.7 - 5.3 mmol/L [place] Protein [Mass/Vol] 5.6 g/dL Low 6.4 - 8.3 g/dL [place] Sodium [Moles/Vol] 136 mmol/L 135 - 144 mmol/L [place] Urea nitrogen [Mass/Vol] 22 mg/dL 8 - 23 mg/dL [place] Metabolic Panelon 04-10-2020 GFR/1.73 sq M predicted among non-blacks MDRD (S/P/Bld) [Vol rate/Area] [place] Comment on above: Stage 1: Some [...] body mass. Additional eGFR calculator available at: http://www.trueEX/multiple_crcl_2012.htm Urinalysis with Microscopico n 04-10-2020 Amorphous, UA NOT REPORTED None [facility], [place] Bacteria, UA TRACE Abnormal None [place] Bilirubin Urine Negative NEGATIVE [place] Casts UA NOT REPORTED /LPF [place] Color, UA YELLOW YELLOW [place] Crystals, UA NOT REPORTED None /HPF [place] Epithelial Cells UA 10 TO 20 [place] Glucose, Ur Negative NEGATIVE [place] Interpretation and review of laboratory results Abnormal [place] Ketones Ql (U) Negative NEGATIVE [place] Leukocyte esterase Test strip Ql (U) Negative NEGATIVE [place] Mucus, UA NOT REPORTED None [place] Nitrite, Urine Negative NEGATIVE [place] Other Observations UA NOT REPORTED NOT REQ. [place] pH, UA 7.0 [place] Protein (U) [Mass/Vol] Negative NEGATIVE [place] RBC (U) [#/Vol] 0 TO 2 [place] Renal Epithelial, UA NOT REPORTED 0 /HPF [place] Specific [place], UA 1.015 [place], [place] Trichomonas, UA NOT REPORTED None [place] Turbidity UA CLEAR CLEAR [place] Urinalysis Comments NOT REPORTED [place] Urine Hgb Negative NEGATIVE [place] Urobilinogen, Urine Normal Normal [place] WBC, UA 0 TO 2 [place] Yeast, UA NOT REPORTED None [place] - [place] CBC auto differentialon 03-27 Basophils (Bld) [#/Vol] 0.04 10*3/uL [place] Basophils/100 WBC (Bld) 0 % 0 - 2 % [place] Differential Type NOT REPORTED [place] Eosinophils (Bld) [#/Vol] 0.24 10*3/uL [place] Eosinophils/100 WBC (Bld) 2 % 1 - 4 % [place] Erythrocyte distribution width (RBC) [Ratio] 15.6 % High 11.8 - 14.4 % [place] Hematocrit (Bld) [Volume fraction] 29.2 % Low 36.3 - 47.1 % [place] Hemoglobin (Bld) [Mass/Vol] 8.8 g/dL Low 11.9 - 15.1 g/dL [place] Immature granulocytes (Bld) [#/Vol] 0.49 10*3/uL [place] Immature granulocytes (Bld) [#/Vol] 3 % High 0 [place] Interpretation and review of laboratory results Abnormal [place] Lymphocytes (Bld) [#/Vol] 1.99 10*3/uL [place] Lymphocytes/100 WBC (Bld) 13 % Low 24 - 43 % [place] MCH (RBC) [Entitic mass] 30.1 pg 25.2 - 33.5 pg [place] MCHC (RBC) [Mass/Vol] 30.1 g/dL 28.4 - 34.8 g/dL [place] MCV (RBC) [Entitic vol] 100.0 fL 82.6 - 102.9 fL [place] Monocytes (Bld) [#/Vol] 1.02 10*3/uL [place] Monocytes/100 WBC (Bld) 7 % 3 - 12 % [place] Platelet mean volume (Bld) [Entitic vol] 10.7 fL 8.1 - 13.5 fL [place] Platelets (Bld) [#/Vol] NOT REPORTED [place] Platelets (Bld) [#/Vol] 444 10*3/uL [place] RBC (Bld) [#/Vol] 2.92 10*6/uL Low 3.95 - 5.1 1 m/uL [place] RBC morphology finding Nom (Bld) NOT REPORTED [place] Segmented neutrophils/100 WBC (Bld) 75 % High 36 - 65 % [place] Segs Absolute 11.50 High [place] WBC (Bld) [#/Vol] 0.0 10*3/uL 0.0 per 10 0 WBC [place] WBC (Bld) [#/Vol] 15.3 10*3/uL [place] WBC Morphology NOT REPORTED [place] Comprehensive metabolic pane riddhi 04-06-2020 Albumin [Mass/Vol] 2.1 g/dL Low 3.5 - 5.2 g/dL [place] Albumin/Globulin [Mass ratio] 0.7 {ratio} Low [place] ALP [Catalytic activity/Vol] 139 U/L High 35 - 104 U/L [place] ALT [Catalytic activity/Vol] 67 U/L High 5 - 33 U/L [place] Anion gap [Moles/Vol] 11 mmol/L 9 - 17 mmol/L [place] AST [Catalytic activity/Vol] 61 U/L High <32 [place] Bilirubin Ql (U) 0.34 mg/dL 0.3 - 1.2 mg/dL [place] Bun/Cre Ratio 20 [place] Calcium [Mass/Vol] 8.2 mg/dL Low 8.6 - 10. 4 mg/dL [place] Chloride [Moles/Vol] 101 mmol/L 98 - 10 7 mmol/L [place] CO2 [Moles/Vol] 25 mmol/L 20 - 31 mmol/L [place] Creatinine [Mass/Vol] 1.12 mg/dL High 0.5 - 0.9 mg/dL [place] GFR 56 mL/min Low >60 [place] GFR Non- 47 mL/min Low >60 [place] Glucose [Mass/Vol] 149 mg/dL High 70 - 99 mg/dL [place] Interpretation and review of laboratory results Abnormal [place] Potassium [Moles/Vol] 3.5 mmol/L Low 3.7 - 5.3 mmol/L [place] Protein [Mass/Vol] 5.3 g/dL Low 6.4 - 8.3 g/dL [place] Sodium [Moles/Vol] 137 mmol/L 135 - 144 mmol/L [place] Urea nitrogen [Mass/Vol] 22 mg/dL 8 - 23 mg/dL [place] Metabolic Panelon 04-06-2020 GFR/1.73 sq M predicted among non-blacks MDRD (S/P/Bld) [Vol rate/Area] [place] Comment on above: Stage 1: Some [...] body mass. Additional eGFR calculator available at: http://www.trueEX/multiple_crcl_2011.htm CBC auto differentialon 03-27 Basophils (Bld) [#/Vol] 10*3/uL [place] Basophils/100 WBC (Bld) 0 % 0 - 2 % [place] Differential Type NOT REPORTED [place] Eosinophils (Bld) [#/Vol] 0.05 10*3/uL [place] Eosinophils/100 WBC (Bld) 0 % Low 1 - 4 % [place] Erythrocyte distribution width (RBC) [Ratio] 15.3 % High 11.8 - 14.4 % [place] Hematocrit (Bld) [Volume fraction] 32.0 % Low 36.3 - 47.1 % [place] Hemoglobin (Bld) [Mass/Vol] 10.0 g/dL Low 11.9 - 15.1 g/dL [place] Immature granulocytes (Bld) [#/Vol] 2 % High 0 [place] Immature granulocytes (Bld) [#/Vol] 0.40 10*3/uL [place] Interpretation and review of laboratory results Abnormal [place] Lymphocytes (Bld) [#/Vol] 1.67 10*3/uL [place] Lymphocytes/100 WBC (Bld) 9 % Low 24 - 43 % [place] MCH (RBC) [Entitic mass] 30.8 pg 25.2 - 33.5 pg [place] MCHC (RBC) [Mass/Vol] 31.3 g/dL 28.4 - 34.8 g/dL [place] MCV (RBC) [Entitic vol] 98.5 fL 82.6 - 102.9 fL [place] Monocytes (Bld) [#/Vol] 1.38 10*3/uL [place] Monocytes/100 WBC (Bld) 8 % 3 - 12 % [place] Platelet mean volume (Bld) [Entitic vol] 10.7 fL 8.1 - 13.5 fL [place] Platelets (Bld) [#/Vol] 497 10*3/uL [place] Platelets (Bld) [#/Vol] NOT REPORTED [place] RBC (Bld) [#/Vol] 3.25 10*6/uL Low 3.95 - 5.1 1 m/uL [place] RBC morphology finding Nom (Bld) NOT REPORTED [place] Segmented neutrophils/100 WBC (Bld) 81 % High 36 - 65 % [place] Segs Absolute 14.36 High [place] WBC (Bld) [#/Vol] 17.9 10*3/uL [place] WBC (Bld) [#/Vol] 0.0 10*3/uL 0.0 per 10 0 WBC [place] WBC Morphology NOT REPORTED [place] COVID-19on 04-05-2020 SARS-CoV-2 [place] SARS-CoV-2, PCR [place] SARS-CoV-2, Rapid Not Detected Not Detected [place] Comment on above: Rapid NAAT: The [...] management decisions. Fact sheet for Healthcare Providers: https://www.fda.gov/media/067696/download Fact sheet for Patients: https://www.fda.gov/media/703403/download Methodology: Isothermal Nucleic Acid Amplification Source .NASOPHARYNGEAL SWAB [place] Comprehensive metabolic pane riddhi 04-05-2020 Albumin [Mass/Vol] 2.5 g/dL Low 3.5 - 5.2 g/dL [place] Albumin/Globulin [Mass ratio] 0.7 {ratio} Low [place] ALP [Catalytic activity/Vol] 137 U/L High 35 - 104 U/L [place] ALT [Catalytic activity/Vol] 76 U/L High 5 - 33 U/L [place] Anion gap [Moles/Vol] 16 mmol/L 9 - 17 mmol/L [place] AST [Catalytic activity/Vol] 73 U/L High <32 [place] Bilirubin Ql (U) 0.41 mg/dL 0.3 - 1.2 mg/dL [place] Bun/Cre Ratio 21 High [place] Calcium [Mass/Vol] 8.4 mg/dL Low 8.6 - 10. 4 mg/dL [place] Chloride [Moles/Vol] 102 mmol/L 98 - 10 7 mmol/L [place] CO2 [Moles/Vol] 24 mmol/L 20 - 31 mmol/L [place] Creatinine [Mass/Vol] 1.16 mg/dL High 0.5 - 0.9 mg/dL [place] GFR 54 mL/min Low >60 [place] GFR Non- 45 mL/min Low >60 [place] Glucose [Mass/Vol] 128 mg/dL High 70 - 99 mg/dL [place] Interpretation and review of laboratory results Abnormal [place] Potassium [Moles/Vol] 3.3 mmol/L Low 3.7 - 5.3 mmol/L [place] Protein [Mass/Vol] 6.3 g/dL Low 6.4 - 8.3 g/dL [place] Sodium [Moles/Vol] 142 mmol/L 135 - 144 mmol/L [place] Urea nitrogen [Mass/Vol] 24 mg/dL High 8 - 23 mg/dL [place] Metabolic Panelon 04-05-2020 GFR/1.73 sq M predicted among non-blacks MDRD (S/P/Bld) [Vol rate/Area] [place] Comment on above: Stage 1: Some [...] body mass. Additional eGFR calculator available at: http://www.[employer].Brandma.co/multiple_crcl_2012.htm Basic Metabolic Panel w/ Ref tosha to MGon 04-03-2020 Anion gap [Moles/Vol] 18 mmol/L High 9 - 17 mmol/L [place] Bun/Cre Ratio 26 [place] Calcium [Mass/Vol] 9.0 mg/dL 8.6 - 10. 4 mg/dL [place] Chloride [Moles/Vol] 96 mmol/L Low 98 - 10 7 mmol/L [place] CO2 [Moles/Vol] 26 mmol/L 20 - 31 mmol/L [place] Creatinine [Mass/Vol] 1.17 mg/dL High 0.5 - 0.9 mg/dL [place] GFR 54 mL/min Low >60 [place] GFR Non- 44 mL/min Low >60 [place] Glucose [Mass/Vol] 157 mg/dL High 70 - 99 mg/dL [place] Interpretation and review of laboratory results Abnormal [place] Potassium [Moles/Vol] 3.5 mmol/L Low 3.7 - 5.3 mmol/L [place] Sodium [Moles/Vol] 140 mmol/L 135 - 144 mmol/L [place] Urea nitrogen [Mass/Vol] 30 mg/dL High 8 - 23 mg/dL [place] CBCon 04-03-2020 Erythrocyte distribution width (RBC) [Ratio] 14.9 % High 11.8 - 14.4 % [place] Hematocrit (Bld) [Volume fraction] 34.0 % Low 36.3 - 47.1 % [place] Hemoglobin (Bld) [Mass/Vol] 10.8 g/dL Low 11.9 - 15.1 g/dL [place] Interpretation and review of laboratory results Abnormal [place] MCH (RBC) [Entitic mass] 30.9 pg 25.2 - 33.5 pg [place] MCHC (RBC) [Mass/Vol] 31.8 g/dL 28.4 - 34.8 g/dL [place] MCV (RBC) [Entitic vol] 97.4 fL 82.6 - 102.9 fL [place] Platelet mean volume (Bld) [Entitic vol] 10.6 fL 8.1 - 13.5 fL [place] Platelets (Bld) [#/Vol] 455 10*3/uL [place] RBC (Bld) [#/Vol] 3.49 10*6/uL Low 3.95 - 5.1 1 m/uL [place] WBC (Bld) [#/Vol] 17.6 10*3/uL [place] WBC (Bld) [#/Vol] 0.0 10*3/uL 0.0 per 10 0 WBC [place] EKG 12 Leadon 04-03-2020 Atrial Rate 78 BPM [place] P [place] 90 degrees [place] P-R Interval 174 ms [place] Q-T Interval 426 ms [place] QRS Duration 114 ms [place] QTc Calculation (Bazett) 485 ms [place] R [place] -27 degrees [facility], [place] T [place] 61 degrees [place] Urea nitrogen [Mass/Vol] Sinus rhythm with Premature atrial complexes Incomplete left bundle branch block Left ventricular hypertrophy with repolarization abnormality Abnormal ECG When compared with ECG of 02-APR-2020 14:43, Premature atrial complexes are now Present Minimal criteria for Septal infarct are no longer Present Confirmed by Sadie GRACE MD [id number]) on 04/03/2020 7:17:15 AM [place] Ventricular Rate 78 BPM [place], [facility] Incoming E kg Results From [facility] - 04/03/2020 7:17 AM EDT Sinus rhythm with Premature atrial complexes Incomplete left bundle branch block Left ventricular hypertrophy with repolarization abnormality Abnormal ECG When compared with ECG of 02-APR-2020 14:43, Premature atrial complexes are now Present Minimal criteria for Septal infarct are no longer Present Confirmed by Sadie GRACE MD [id number]) on 04/03/2020 7:17:15 AM [place] Lactic acid, plasmaon 2019 Lactate [Moles/Vol] 1.9 mmol/L 0.5 - 2. 2 mmol/L [place] Lactic Acid, Whole Blood NOT REPORTED 0.7 - 2.1 mmol/L [place] Magnesiumon 04-03-2020 Magnesium [Mass/Vol] 1.9 mg/dL 1.6 - 2 .6 mg/dL [place] Metabolic Panelon 04-03-2020 GFR/1.73 sq M predicted among non-blacks MDRD (S/P/Bld) [Vol rate/Area] [place] Comment on above: Stage 1: Some [...] body mass. Additional eGFR calculator available at: http://www.trueEX/multiple_crcl_2012.htm Basic Metabolic Panelon Anion gap [Moles/Vol] 16 mmol/L 9 - 17 mmol/L [place] Bun/Cre Ratio 26 High [place] Calcium [Mass/Vol] 8.9 mg/dL 8.6 - 10. 4 mg/dL [place] Chloride [Moles/Vol] 92 mmol/L Low 98 - 10 7 mmol/L [place] CO2 [Moles/Vol] 29 mmol/L 20 - 31 mmol/L [place] Creatinine [Mass/Vol] 1.41 mg/dL High 0.5 - 0.9 mg/dL [place] GFR 43 mL/min Low >60 [place] GFR Non- 36 mL/min Low >60 [place] Glucose [Mass/Vol] 200 mg/dL High 70 - 99 mg/dL [place] Interpretation and review of laboratory results Abnormal [place] Potassium [Moles/Vol] 2.9 mmol/L Critically low 3.7 - 5.3 mmol/L [place] Sodium [Moles/Vol] 137 mmol/L 135 - 144 mmol/L [place] Urea nitrogen [Mass/Vol] 37 mg/dL High 8 - 23 mg/dL [place] Basic Metabolic Panel w/ Ref tosha to MGon 04-02-2020 Anion gap [Moles/Vol] 15 mmol/L 9 - 17 mmol/L [place] Bun/Cre Ratio 26 High [place] Calcium [Mass/Vol] 8.6 mg/dL 8.6 - 10. 4 mg/dL [place] Chloride [Moles/Vol] 96 mmol/L Low 98 - 10 7 mmol/L [place] CO2 [Moles/Vol] 28 mmol/L 20 - 31 mmol/L [place] Creatinine [Mass/Vol] 1.33 mg/dL High 0.5 - 0.9 mg/dL [place] GFR 46 mL/min Low >60 [place] GFR Non- 38 mL/min Low >60 [place] Glucose [Mass/Vol] 149 mg/dL High 70 - 99 mg/dL [place] Interpretation and review of laboratory results Abnormal [place] Potassium [Moles/Vol] 3.4 mmol/L Low 3.7 - 5.3 mmol/L [place] Sodium [Moles/Vol] 139 mmol/L 135 - 144 mmol/L [place] Urea nitrogen [Mass/Vol] 35 mg/dL High 8 - 23 mg/dL [place] CBC Auto Differentialon Basophils (Bld) [#/Vol] 10*3/uL [place] Basophils/100 WBC (Bld) 0 % 0 - 2 % [place] Differential Type NOT REPORTED [place] Eosinophils (Bld) [#/Vol] 10*3/uL [place] Eosinophils/100 WBC (Bld) 0 % Low 1 - 4 % [place] Erythrocyte distribution width (RBC) [Ratio] 14.7 % High 11.8 - 14.4 % [place] Hematocrit (Bld) [Volume fraction] 32.6 % Low 36.3 - 47.1 % [place] Hemoglobin (Bld) [Mass/Vol] 10.5 g/dL Low 11.9 - 15.1 g/dL [place] Immature granulocytes (Bld) [#/Vol] 1 % High 0 [place] Immature granulocytes (Bld) [#/Vol] 0.15 10*3/uL [place] Interpretation and review of laboratory results Abnormal [place] Lymphocytes (Bld) [#/Vol] 1.25 10*3/uL [place] Lymphocytes/100 WBC (Bld) 7 % Low 24 - 43 % [place] MCH (RBC) [Entitic mass] 30.7 pg 25.2 - 33.5 pg [place] MCHC (RBC) [Mass/Vol] 32.2 g/dL 28.4 - 34.8 g/dL [place] MCV (RBC) [Entitic vol] 95.3 fL 82.6 - 102.9 fL [place] Monocytes (Bld) [#/Vol] 1.50 10*3/uL High [place] Monocytes/100 WBC (Bld) 9 % 3 - 12 % [place] Platelet mean volume (Bld) [Entitic vol] 10.8 fL 8.1 - 13.5 fL [place] Platelets (Bld) [#/Vol] NOT REPORTED [place] Platelets (Bld) [#/Vol] 401 10*3/uL [place] RBC (Bld) [#/Vol] 3.42 10*6/uL Low 3.95 - 5.1 1 m/uL [place] RBC morphology finding Nom (Bld) NOT REPORTED [place] Segmented neutrophils/100 WBC (Bld) 83 % High 36 - 65 % [place] Segs Absolute 14.35 High [place] WBC (Bld) [#/Vol] 17.3 10*3/uL High [place] WBC (Bld) [#/Vol] 0.0 10*3/uL 0.0 per 10 0 WBC [place] WBC Morphology NOT REPORTED [place] EKG 12 Leadon 04-02-2020 Atrial Rate 73 BPM [place] P [place] 90 degrees [place] P-R Interval 192 ms [place] Q-T Interval 430 ms [place] QRS Duration 108 ms [place] QTc Calculation (Bazett) 473 ms [place] R [place] -33 degrees [facility], [place] T [place] 50 degrees [place] Ventricular Rate 73 BPM [place] Normal sinus rhythm Left axis deviation Pulmonary disease pattern Left ventricular hypertrophy with repolarization abnormality Cannot rule out Septal infarct (cited on or before 30-JUN-2001) Abnormal ECG When compared with ECG of 11-NOV-2011 11:12, QRS duration has increased Questionable change in initial forces of Anterior leads Confirmed by Sadie GRACE MD [id number]) on 04/02/2020 4:19:24 PM [place], [facility] Incoming E kg Results From [facility] - 04/02/2020 4:19 PM EDT Normal sinus rhythm Left axis deviation Pulmonary disease pattern Left ventricular hypertrophy with repolarization abnormality Cannot rule out Septal infarct (cited on or before 30-JUN-2001) Abnormal ECG When compared with ECG of 11-NOV-2011 11:12, QRS duration has increased Questionable change in initial forces of Anterior leads Confirmed by Sadie GRACE MD ([id number]) on 04/02/2020 4:19:24 PM [place] Magnesiumon 04-02-2020 Magnesium [Mass/Vol] 2.0 mg/dL 1.6 - 2 .6 mg/dL [place] Metabolic Panelon 04-02-2020 GFR/1.73 sq M predicted among non-blacks MDRD (S/P/Bld) [Vol rate/Area] [place] Comment on above: Average GFR for 70 o r more years old: 75 mL/min/1.73sq m Chronic Kidney Disease: <60 mL/min/1.73sq m Kidney failure: <15 mL/min/1.73sq m eGFR calculated using average adult body mass. Additional eGFR calculator available at: http://www.trueEX/multiple_crcl_2012.htm Stage 1: Some kidney damage normal GFR Stage 2: Mild kidney damage GFR 60-89 Stage 3: Moderate kidney damage GFR 30-59 Stage 4: Severe kidney damage GFR 15-29 Stage 5: Severe kidney damage GFR <15 ESRD - chronic treatment by dialysis or transplant GFR/1.73 sq M predicted among non-blacks MDRD (S/P/Bld) [Vol rate/Area] [place] Comment on above: Average GFR for 70 o r more years old: 75 mL/min/1.73sq m Chronic Kidney Disease: <60 mL/min/1.73sq m Kidney failure: <15 mL/min/1.73sq m eGFR calculated using average adult body mass. Additional eGFR calculator available at: http://www.trueEX/Curoverse_crcl_2011.htm Stage 1: Some kidney damage normal GFR Stage 2: Mild kidney damage GFR 60-89 Stage 3: Moderate kidney damage GFR 30-59 Stage 4: Severe kidney damage GFR 15-29 Stage 5: Severe kidney damage GFR <15 ESRD - chronic treatment by dialysis or transplant Troponinon 04-02-2020 Interpretation and review of laboratory results Abnormal [place] Troponin I.cardiac [Mass/Vol] NOT REPORTED [place] Troponin T.cardiac [Mass/Vol] NOT REPORTED <0.03 ng/mL [place] Troponin, High Sensitivity 44 ng/L High 0 - 14 ng/L [place], [place] Comment on above: High Sensitivity Troponin values cannot be compared with other Troponin methodologies. Patients with high levels of Biotin oral intake (i.e >5mg/day) may have falsely decreased Troponin levels. Samples collected within 8 hours of biotin intake may require additional information for diagnosis. Interpretation and review of laboratory results Abnormal [place], [place] Troponin I.cardiac [Mass/Vol] NOT REPORTED [place] Troponin T.cardiac [Mass/Vol] NOT REPORTED <0.03 ng/mL [place] Troponin, High Sensitivity 47 ng/L High 0 - 14 ng/L [place], [place] Comment on above: High Sensitivity Troponin values cannot be compared with other Troponin methodologies. Patients with high levels of Biotin oral intake (i.e >5mg/day) may have falsely decreased Troponin levels. Samples collected within 8 hours of biotin intake may require additional information for diagnosis. Urinalysis with [facility] n 04-02-2020 Amorphous, UA NOT REPORTED None [place] Bacteria, UA 4+ Abnormal None [place] Bilirubin Urine Negative NEGATIVE [place] Casts UA NOT REPORTED /LPF [place] Color, UA YELLOW YELLOW [place] Crystals, UA NOT REPORTED None /HPF [place] Epithelial Cells UA 0 TO 2 [place] Glucose, Ur Negative NEGATIVE [place] Interpretation and review of laboratory results Abnormal [place] Ketones Ql (U) Negative NEGATIVE [place] Leukocyte esterase Test strip Ql (U) Negative NEGATIVE [place] Mucus, UA NOT REPORTED None [place] Nitrite, Urine Positive Abnormal NEGATIVE [place] Other Observations UA NOT REPORTED NOT REQ. [place] pH, UA 6.0 [place] Protein (U) [Mass/Vol] 1+ Abnormal NEGATIVE [place] RBC (U) [#/Vol] 0 TO 2 [place] Renal Epithelial, UA NOT REPORTED 0 /HPF [place] Specific [place], UA 1.025 High [place], [place] Trichomonas, UA NOT REPORTED None [place] Turbidity UA SLIGHTLY CLOUDY Abnormal CLEAR [place] Urinalysis Comments NOT REPORTED [place] Urine Hgb 1+ Abnormal NEGATIVE [place] Urobilinogen, Urine Normal Normal [place] WBC, UA 2 TO 5 [place] Yeast, UA NOT REPORTED None [place] XR CHEST 1 VWon 04-02-2020 No acute cardiopulmonary disease. [place], [place] Incoming Radiant Results From [employer] - 04/02/2020 8:01 PM EDT EXAMINATION: ONE [...] osseous abnormality. IMPRESSION: No acute cardiopulmonary disease. [place] EXAMINATION: ONE XRA Y VIEW OF [...] edema. No pneumothorax. No acute osseous abnormality. [place] CBC Auto Differentialon 02-26 Basophils (Bld) [#/Vol] 10*3/uL [place] Basophils/100 WBC (Bld) 0 % 0 - 2 % [place] Differential Type NOT REPORTED [place] Eosinophils (Bld) [#/Vol] 0.07 10*3/uL [place] Eosinophils/100 WBC (Bld) 1 % 1 - 4 % [place] Erythrocyte distribution width (RBC) [Ratio] 14.1 % 11.8 - 14.4 % [place] Hematocrit (Bld) [Volume fraction] 35.7 % Low 36.3 - 47.1 % [place] Hemoglobin (Bld) [Mass/Vol] 11.1 g/dL Low 11.9 - 15.1 g/dL [place] Immature granulocytes (Bld) [#/Vol] 0.04 10*3/uL [place] Immature granulocytes (Bld) [#/Vol] 0 % 0 [place] Interpretation and review of laboratory results Abnormal [place] Lymphocytes (Bld) [#/Vol] 1.62 10*3/uL [place] Lymphocytes/100 WBC (Bld) 14 % Low 24 - 43 % [place] MCH (RBC) [Entitic mass] 31.5 pg 25.2 - 33.5 pg [place] MCHC (RBC) [Mass/Vol] 31.1 g/dL 28.4 - 34.8 g/dL [place] MCV (RBC) [Entitic vol] 101.4 fL 82.6 - 102.9 fL [place] Monocytes (Bld) [#/Vol] 1.43 10*3/uL [place] Monocytes/100 WBC (Bld) 12 % 3 - 12 % [place] Platelet mean volume (Bld) [Entitic vol] 10.3 fL 8.1 - 13.5 fL [place] Platelets (Bld) [#/Vol] 245 10*3/uL [place] Platelets (Bld) [#/Vol] NOT REPORTED [place] RBC (Bld) [#/Vol] 3.52 10*6/uL Low 3.95 - 5.1 1 m/uL [place] RBC morphology finding Nom (Bld) NOT REPORTED [place] Segmented neutrophils/100 WBC (Bld) 73 % High 36 - 65 % [place] Segs Absolute 8.49 [place] WBC (Bld) [#/Vol] 0.0 10*3/uL 0.0 per 10 0 WBC [place] WBC (Bld) [#/Vol] 11.7 10*3/uL [place] WBC Morphology NOT REPORTED [place] Comprehensive Metabolic Pane riddhi 03-25-2020 Albumin [Mass/Vol] 3.3 g/dL Low 3.5 - 5.2 g/dL [place] Albumin/Globulin [Mass ratio] 1.1 {ratio} [place] ALP [Catalytic activity/Vol] 118 U/L High 35 - 104 U/L [place] ALT [Catalytic activity/Vol] 14 U/L 5 - 33 U/L [place] Anion gap [Moles/Vol] 14 mmol/L 9 - 17 mmol/L [place] AST [Catalytic activity/Vol] 15 U/L <32 [place] Bilirubin Ql (U) 0.39 mg/dL 0.3 - 1.2 mg/dL [place] Bun/Cre Ratio 17 [place] Calcium [Mass/Vol] 9.1 mg/dL 8.6 - 10. 4 mg/dL [place] Chloride [Moles/Vol] 101 mmol/L 98 - 10 7 mmol/L [place] CO2 [Moles/Vol] 27 mmol/L 20 - 31 mmol/L [place] Creatinine [Mass/Vol] 1.32 mg/dL High 0.5 - 0.9 mg/dL [place] GFR 47 mL/min Low >60 [place] GFR Non- 39 mL/min Low >60 [place] Glucose [Mass/Vol] 140 mg/dL High 70 - 99 mg/dL [place] Interpretation and review of laboratory results Abnormal [place] Potassium [Moles/Vol] 3.7 mmol/L 3.7 - 5.3 mmol/L [place] Protein [Mass/Vol] 6.2 g/dL Low 6.4 - 8.3 g/dL [place] Sodium [Moles/Vol] 142 mmol/L 135 - 144 mmol/L [place] Urea nitrogen [Mass/Vol] 22 mg/dL 8 - 23 mg/dL [place] Metabolic Panelon 03-25-2020 GFR/1.73 sq M predicted among non-blacks MDRD (S/P/Bld) [Vol rate/Area] [place] Comment on above: Average GFR for 70 o r more years old: 75 mL/min/1.73sq m Chronic Kidney Disease: <60 mL/min/1.73sq m Kidney failure: <15 mL/min/1.73sq m eGFR calculated using average adult body mass. Additional eGFR calculator available at: http://www.trueEX/multiple_crcl_2011.htm Stage 1: Some kidney damage normal GFR Stage 2: Mild kidney damage GFR 60-89 Stage 3: Moderate kidney damage GFR 30-59 Stage 4: Severe kidney damage GFR 15-29 Stage 5: Severe kidney damage GFR <15 ESRD - chronic treatment by dialysis or transplant APTTon 03-23-2020 aPTT Coag (Bld) [Time] 33.4 s [place] Comment on above: IV Heparin Therapy Range: 62.0-94.0 Basic Metabolic Panel w/ Ref tosha to MGon 03-23-2020 Anion gap [Moles/Vol] 16 mmol/L 9 - 17 mmol/L [place] Bun/Cre Ratio 17 [place] Calcium [Mass/Vol] 9.2 mg/dL 8.6 - 10. 4 mg/dL [place] Chloride [Moles/Vol] 99 mmol/L 98 - 10 7 mmol/L [place] CO2 [Moles/Vol] 25 mmol/L 20 - 31 mmol/L [place] Creatinine [Mass/Vol] 1.43 mg/dL High 0.5 - 0.9 mg/dL [place] GFR 43 mL/min Low >60 [place] GFR Non- 35 mL/min Low >60 [place] Glucose [Mass/Vol] 112 mg/dL High 70 - 99 mg/dL [place] Interpretation and review of laboratory results Abnormal [place] Potassium [Moles/Vol] 4.1 mmol/L 3.7 - 5.3 mmol/L [place] Sodium [Moles/Vol] 140 mmol/L 135 - 144 mmol/L [place] Urea nitrogen [Mass/Vol] 25 mg/dL High 8 - 23 mg/dL [place] CBC Auto Differentialon 02-26 Basophils (Bld) [#/Vol] 10*3/uL [place] Basophils/100 WBC (Bld) 0 % 0 - 2 % [place] Differential Type NOT REPORTED [place] Eosinophils (Bld) [#/Vol] 0.12 10*3/uL [place] Eosinophils/100 WBC (Bld) 1 % 1 - 4 % [place] Erythrocyte distribution width (RBC) [Ratio] 14.5 % High 11.8 - 14.4 % [place] Hematocrit (Bld) [Volume fraction] 38.0 % 36.3 - 47.1 % [place] Hemoglobin (Bld) [Mass/Vol] 11.4 g/dL Low 11.9 - 15.1 g/dL [place] Immature granulocytes (Bld) [#/Vol] 0 % 0 [place] Immature granulocytes (Bld) [#/Vol] 0.03 10*3/uL [place] Interpretation and review of laboratory results Abnormal [place] Lymphocytes (Bld) [#/Vol] 1.80 10*3/uL [place] Lymphocytes/100 WBC (Bld) 17 % Low 24 - 43 % [place] MCH (RBC) [Entitic mass] 31.1 pg 25.2 - 33.5 pg [place] MCHC (RBC) [Mass/Vol] 30.0 g/dL 28.4 - 34.8 g/dL [place] MCV (RBC) [Entitic vol] 103.8 fL High 82.6 - 102.9 fL [place] Monocytes (Bld) [#/Vol] 1.42 10*3/uL [place] Monocytes/100 WBC (Bld) 13 % High 3 - 12 % [place] Platelet mean volume (Bld) [Entitic vol] 10.2 fL 8.1 - 13.5 fL [place] Platelets (Bld) [#/Vol] NOT REPORTED [place] Platelets (Bld) [#/Vol] 245 10*3/uL [place] RBC (Bld) [#/Vol] 3.66 10*6/uL Low 3.95 - 5.1 1 m/uL [place] RBC morphology finding Nom (Bld) NOT REPORTED [place] Segmented neutrophils/100 WBC (Bld) 69 % High 36 - 65 % [place] Segs Absolute 7.34 [place] WBC (Bld) [#/Vol] 10.7 10*3/uL [place] WBC (Bld) [#/Vol] 0.0 10*3/uL 0.0 per 10 0 WBC [place] WBC Morphology NOT REPORTED [place] COVID-19, PCRon 03-23-2020 SARS-CoV-2 [place] SARS-CoV-2, PCR [place] SARS-CoV-2, Rapid Not Detected Not Detected [place] Comment on above: Rapid NAAT: The [...] management decisions. Fact sheet for Healthcare Providers: https://www.fda.gov/media/272020/download Fact sheet for Patients: https://www.fda.gov/media/587914/download Methodology: Isothermal Nucleic Acid Amplification Source .NASOPHARYNGEAL SWAB [place] Metabolic Panelon 03-23-2020 GFR/1.73 sq M predicted among non-blacks MDRD (S/P/Bld) [Vol rate/Area] [place] Comment on above: Average GFR for 70 o r more years old: 75 mL/min/1.73sq m Chronic Kidney Disease: <60 mL/min/1.73sq m Kidney failure: <15 mL/min/1.73sq m eGFR calculated using average adult body mass. Additional eGFR calculator available at: http://www.[employer].Brandma.co/multiple_crcl_2012.htm Stage 1: Some kidney damage normal GFR Stage 2: Mild kidney damage GFR 60-89 Stage 3: Moderate kidney damage GFR 30-59 Stage 4: Severe kidney damage GFR 15-29 Stage 5: Severe kidney damage GFR <15 ESRD - chronic treatment by dialysis or transplant Protime-INRon 03-23-2020 INR Coag (PPP) [Relative time] 1.2 {INR} [place] Comment on above: Non-therapeutic Range: INR = 0.9-1.2 Therapeutic Range: Moderate Anticoagulant Intensity: INR = 2.0-3.0 High Anticoagulant Intensity: INR = 2.5-3.5 Interpretation and review of laboratory results Abnormal [place] PT Coag (PPP) [Time] 14.9 s [place] XR HIP 2-3 VW W PELVIS LEFTo n 03-23-2020 Erythrocyte distribution width (RBC) [Ratio] Hardware fixation of the proximal left femoral fracture without evidence for complication. Degenerative change of the SI joints and hip joints. [place], [place] Incoming Radiant Results From [employer] - 03/23/2020 3:40 PM EDT EXAMINATION: ONE [...] of the SI joints and hip joints. [place] EXAMINATION: ONE XRA Y VIEW OF [...] joints. The surrounding soft tissues are unremarkable. [facility] [place] CBC Auto Differentialon 02-25 Basophils (Bld) [#/Vol] 10*3/uL [place] Basophils/100 WBC (Bld) 0 % 0 - 2 % [place] Differential Type NOT REPORTED [place] Eosinophils (Bld) [#/Vol] 0.25 10*3/uL [place] Eosinophils/100 WBC (Bld) 5 % High 1 - 4 % [place] Erythrocyte distribution width (RBC) [Ratio] 16.0 % High 11.8 - 14.4 % [place] Hematocrit (Bld) [Volume fraction] 34.2 % Low 36.3 - 47.1 % [place] Hemoglobin (Bld) [Mass/Vol] 10.0 g/dL Low 11.9 - 15.1 g/dL [place] Immature granulocytes (Bld) [#/Vol] 0.03 10*3/uL [place] Immature granulocytes (Bld) [#/Vol] 1 % High 0 [place] Interpretation and review of laboratory results Abnormal [place] Lymphocytes (Bld) [#/Vol] 1.50 10*3/uL [place] Lymphocytes/100 WBC (Bld) 30 % 24 - 43 % [place] MCH (RBC) [Entitic mass] 31.2 pg 25.2 - 33.5 pg [place] MCHC (RBC) [Mass/Vol] 29.2 g/dL 28.4 - 34.8 g/dL [place] MCV (RBC) [Entitic vol] 106.5 fL High 82.6 - 102.9 fL [place] Monocytes (Bld) [#/Vol] 0.70 10*3/uL [place] Monocytes/100 WBC (Bld) 14 % High 3 - 12 % [place] Platelet mean volume (Bld) [Entitic vol] 10.2 fL 8.1 - 13.5 fL [place] Platelets (Bld) [#/Vol] NOT REPORTED [place] Platelets (Bld) [#/Vol] 311 10*3/uL [place] RBC (Bld) [#/Vol] 3.21 10*6/uL Low 3.95 - 5.1 1 m/uL [place] RBC morphology finding Nom (Bld) NOT REPORTED [place] Segmented neutrophils/100 WBC (Bld) 50 % 36 - 65 % [place] Segs Absolute 2.44 [place] WBC (Bld) [#/Vol] 0.0 10*3/uL 0.0 per 10 0 WBC [place] WBC (Bld) [#/Vol] 4.9 10*3/uL [place] WBC Morphology NOT REPORTED [place] Comprehensive Metabolic Pane riddhi 03-12-2020 Albumin [Mass/Vol] 3.3 g/dL Low 3.5 - 5.2 g/dL [place] Albumin/Globulin [Mass ratio] 1.6 {ratio} [place] ALP [Catalytic activity/Vol] 124 U/L High 35 - 104 U/L [place] ALT [Catalytic activity/Vol] 18 U/L 5 - 33 U/L [place] Anion gap [Moles/Vol] 14 mmol/L 9 - 17 mmol/L [place] AST [Catalytic activity/Vol] 20 U/L <32 [place] Bilirubin Ql (U) 0.19 mg/dL Low 0.3 - 1.2 mg/dL [place] Bun/Cre Ratio 20 [place] Calcium [Mass/Vol] 8.6 mg/dL 8.6 - 10. 4 mg/dL [place] Chloride [Moles/Vol] 106 mmol/L 98 - 10 7 mmol/L [place] CO2 [Moles/Vol] 24 mmol/L 20 - 31 mmol/L [place] Creatinine [Mass/Vol] 1.5 mg/dL High 0.5 - 0.9 mg/dL [place] GFR 40 mL/min Low >60 [place] GFR Non- 33 mL/min Low >60 [place] Glucose [Mass/Vol] 78 mg/dL 70 - 99 mg/dL [place] Interpretation and review of laboratory results Abnormal [place] Potassium [Moles/Vol] 4.3 mmol/L 3.7 - 5.3 mmol/L [place] Protein [Mass/Vol] 5.4 g/dL Low 6.4 - 8.3 g/dL [place] Sodium [Moles/Vol] 144 mmol/L 135 - 144 mmol/L [place] Urea nitrogen [Mass/Vol] 30 mg/dL High 8 - 23 mg/dL [place] Metabolic Panelon 03-12-2020 GFR/1.73 sq M predicted among non-blacks MDRD (S/P/Bld) [Vol rate/Area] [place], [place] Comment on above: Stage 1: Some [...] body mass. Additional eGFR calculator available at: http://www.trueEX/multiple_crcl_2012.htm CBC Auto Differentialon Basophils (Bld) [#/Vol] 10*3/uL [place] Basophils/100 WBC (Bld) 0 % 0 - 2 % [place] Differential Type NOT REPORTED [place] Eosinophils (Bld) [#/Vol] 0.25 10*3/uL [place] Eosinophils/100 WBC (Bld) 4 % 1 - 4 % [place] Erythrocyte distribution width (RBC) [Ratio] 17.5 % High 11.8 - 14.4 % [place] Hematocrit (Bld) [Volume fraction] 33.4 % Low 36.3 - 47.1 % [place] Hemoglobin (Bld) [Mass/Vol] 10.0 g/dL Low 11.9 - 15.1 g/dL [place] Immature granulocytes (Bld) [#/Vol] 0.03 10*3/uL [place] Immature granulocytes (Bld) [#/Vol] 1 % High 0 [place] Interpretation and review of laboratory results Abnormal [place] Lymphocytes (Bld) [#/Vol] 1.40 10*3/uL [place] Lymphocytes/100 WBC (Bld) 23 % Low 24 - 43 % [place] MCH (RBC) [Entitic mass] 31.1 pg 25.2 - 33.5 pg [place] MCHC (RBC) [Mass/Vol] 29.9 g/dL 28.4 - 34.8 g/dL [place] MCV (RBC) [Entitic vol] 103.7 fL High 82.6 - 102.9 fL [place] Monocytes (Bld) [#/Vol] 0.58 10*3/uL [place] Monocytes/100 WBC (Bld) 9 % 3 - 12 % [place] Platelet mean volume (Bld) [Entitic vol] 9.6 fL 8.1 - 13.5 fL [place] Platelets (Bld) [#/Vol] NOT REPORTED [place] Platelets (Bld) [#/Vol] 403 10*3/uL [place] RBC (Bld) [#/Vol] 3.22 10*6/uL Low 3.95 - 5.1 1 m/uL [place] RBC morphology finding Nom (Bld) NOT REPORTED [place] Segmented neutrophils/100 WBC (Bld) 63 % 36 - 65 % [place] Segs Absolute 3.89 [place] WBC (Bld) [#/Vol] 0.0 10*3/uL 0.0 per 10 0 WBC [place] WBC (Bld) [#/Vol] 6.2 10*3/uL [place] WBC Morphology NOT REPORTED [place] Comprehensive Metabolic Pane riddhi 02-27-2020 Albumin [Mass/Vol] 3.3 g/dL Low 3.5 - 5.2 g/dL [place] Albumin/Globulin [Mass ratio] 1.3 {ratio} [place] ALP [Catalytic activity/Vol] 145 U/L High 35 - 104 U/L [place] ALT [Catalytic activity/Vol] 40 U/L High 5 - 33 U/L [place] Anion gap [Moles/Vol] 11 mmol/L 9 - 17 mmol/L [place] AST [Catalytic activity/Vol] 34 U/L High <32 [place] Bilirubin Ql (U) 0.39 mg/dL 0.3 - 1.2 mg/dL [place] Bun/Cre Ratio 21 [place] Calcium [Mass/Vol] 8.8 mg/dL 8.6 - 10. 4 mg/dL [place] Chloride [Moles/Vol] 107 mmol/L 98 - 10 7 mmol/L [place] CO2 [Moles/Vol] 24 mmol/L 20 - 31 mmol/L [place] Creatinine [Mass/Vol] 1.32 mg/dL High 0.5 - 0.9 mg/dL [place] GFR 47 mL/min Low >60 [place] GFR Non- 39 mL/min Low >60 [place] Glucose [Mass/Vol] 103 mg/dL High 70 - 99 mg/dL [place] Interpretation and review of laboratory results Abnormal [place] Potassium [Moles/Vol] 3.8 mmol/L 3.7 - 5.3 mmol/L [place] Protein [Mass/Vol] 5.9 g/dL Low 6.4 - 8.3 g/dL [place] Sodium [Moles/Vol] 142 mmol/L 135 - 144 mmol/L [place] Urea nitrogen [Mass/Vol] 28 mg/dL High 8 - 23 mg/dL [place] Metabolic Panelon 02-27-2020 GFR/1.73 sq M predicted among non-blacks MDRD (S/P/Bld) [Vol rate/Area] [place] Comment on above: Stage 1: Some [...] body mass. Additional eGFR calculator available at: http://www.trueEX/multiple_crcl_2012.htm CBC Auto Differentialon 01-26 Basophils (Bld) [#/Vol] 10*3/uL [place] Basophils/100 WBC (Bld) 0 % 0 - 2 % [place] Differential Type NOT REPORTED [place] Eosinophils (Bld) [#/Vol] 0.33 10*3/uL [place] Eosinophils/100 WBC (Bld) 4 % 1 - 4 % [place] Erythrocyte distribution width (RBC) [Ratio] 16.7 % High 11.8 - 14.4 % [place] Hematocrit (Bld) [Volume fraction] 31.9 % Low 36.3 - 47.1 % [place] Hemoglobin (Bld) [Mass/Vol] 9.7 g/dL Low 11.9 - 15.1 g/dL [place] Immature granulocytes (Bld) [#/Vol] 0.20 10*3/uL [place] Immature granulocytes (Bld) [#/Vol] 2 % High 0 [place] Interpretation and review of laboratory results Abnormal [place] Lymphocytes (Bld) [#/Vol] 2.08 10*3/uL [place] Lymphocytes/100 WBC (Bld) 23 % Low 24 - 43 % [place] MCH (RBC) [Entitic mass] 30.8 pg 25.2 - 33.5 pg [place] MCHC (RBC) [Mass/Vol] 30.4 g/dL 28.4 - 34.8 g/dL [place] MCV (RBC) [Entitic vol] 101.3 fL 82.6 - 102.9 fL [place] Monocytes (Bld) [#/Vol] 1.09 10*3/uL [place] Monocytes/100 WBC (Bld) 12 % 3 - 12 % [place] Platelet mean volume (Bld) [Entitic vol] 9.8 fL 8.1 - 13.5 fL [place] Platelets (Bld) [#/Vol] NOT REPORTED [place] Platelets (Bld) [#/Vol] 468 10*3/uL [place] RBC (Bld) [#/Vol] 3.15 10*6/uL Low 3.95 - 5.1 1 m/uL [place] RBC morphology finding Nom (Bld) NOT REPORTED [place] Segmented neutrophils/100 WBC (Bld) 59 % 36 - 65 % [place] Segs Absolute 5.43 [place] WBC (Bld) [#/Vol] 0.0 10*3/uL 0.0 per 10 0 WBC [place] WBC (Bld) [#/Vol] 9.2 10*3/uL [place] WBC Morphology NOT REPORTED [place] Comprehensive Metabolic Pane riddhi 02-20-2020 Albumin [Mass/Vol] 3.3 g/dL Low 3.5 - 5.2 g/dL [place] Albumin/Globulin [Mass ratio] 1.2 {ratio} [place] ALP [Catalytic activity/Vol] 158 U/L High 35 - 104 U/L [place] ALT [Catalytic activity/Vol] 101 U/L High 5 - 33 U/L [place] Anion gap [Moles/Vol] 15 mmol/L 9 - 17 mmol/L [place] AST [Catalytic activity/Vol] 100 U/L High <32 [place] Bilirubin Ql (U) 0.43 mg/dL 0.3 - 1.2 mg/dL [place] Bun/Cre Ratio 23 [place] Calcium [Mass/Vol] 8.6 mg/dL 8.6 - 10. 4 mg/dL [place] Chloride [Moles/Vol] 102 mmol/L 98 - 10 7 mmol/L [place] CO2 [Moles/Vol] 22 mmol/L 20 - 31 mmol/L [place] Creatinine [Mass/Vol] 1.46 mg/dL High 0.5 - 0.9 mg/dL [place] GFR 42 mL/min Low >60 [place] GFR Non- 34 mL/min Low >60 [place] Glucose [Mass/Vol] 98 mg/dL 70 - 99 mg/dL [place] Interpretation and review of laboratory results Abnormal [place] Potassium [Moles/Vol] 3.6 mmol/L Low 3.7 - 5.3 mmol/L [place] Protein [Mass/Vol] 6.0 g/dL Low 6.4 - 8.3 g/dL [place] Sodium [Moles/Vol] 139 mmol/L 135 - 144 mmol/L [place] Urea nitrogen [Mass/Vol] 33 mg/dL High 8 - 23 mg/dL [place] Metabolic Panelon 02-20-2020 GFR/1.73 sq M predicted among non-blacks MDRD (S/P/Bld) [Vol rate/Area] [place] Comment on above: Stage 1: Some [...] body mass. Additional eGFR calculator available at: http://www.[employer].Brandma.co/multiple_crcl_2012.htm Danna Bobo 02-17-2020 Danna Gallardo -- - Final No growth at 5 days. Normal [facility] Comment on above: Performed By: #### E GFR #### [place] [id number] C Bld Blood cultures x 2 - Final No growth at 5 days. Normal [facility] Comment on above: Performed By: #### F OL #### [address] [id number] .eGFRon 02-15-2020 eGFR AA 40 mL/min/1.73m? Low >=60 [facility] Comment on above: Result Comment: Resu lt = 0-14.9 mL/min/1.73 m2 Kidney failure or Dialysis Result = 15-29 mL/min/1.73 m2 Severe decrease in GFR Result = 30-59 mL/min/1.73 m2 Moderate decrease in GFR Result >= 60 mL/min/1.73 m2 Normal or increased GFR Performed By: #### T IBC #### [address] [address] eGFR Non-AA 33 mL/min/1.73m? Low >=60 [facility] Comment on above: Result Comment: Resu lt [...] dosing. Performed By: #### T IBC #### [address] [address] CBCon 02-15-2020 Erythrocyte distribution width (RBC) [Ratio] 14.7 % Normal 11.6-14.8 [facility] Comment on above: Performed By: #### F OL #### [place] [id number] Hematocrit (Bld) [Volume fraction] 28.4 % Low 36.0-46.0 [facility] Comment on above: Performed By: #### F OL #### [place] [id number] Hemoglobin (Bld) [Mass/Vol] 9.3 g/dL Low 12.0-16.0 [facility] Comment on above: Performed By: #### F OL #### [place] [id number] MCH (RBC) [Entitic mass] 30.7 pg Normal 27.0-35.0 [facility] Comment on above: Performed By: #### F OL #### [place] [id number] MCHC (RBC) [Mass/Vol] 32.8 % Normal 31.0-37.0 [facility] Comment on above: Performed By: #### F OL #### [address] [address] MCV (RBC) [Entitic vol] 93.4 fL Normal 80.0-100.0 B [facility] Comment on above: Performed By: #### F OL #### [address] [address] Platelet mean volume (Bld) [Entitic vol] 8.4 fL Normal 6.7-10.6 [facility] Comment on above: Performed By: #### F OL #### [place] [id number] Platelets (Bld) [#/Vol] 246 x10*3/mcL Normal 150-350 [facility] Comment on above: Performed By: #### F OL #### [address] [address] RBC (Bld) [#/Vol] 3.04 x10*6/mcL Low 3.80-5.20 [facility] Comment on above: Performed By: #### F OL #### [address] [address] WBC (Bld) [#/Vol] 8.2 x10*3/mcL Normal 4.5-11.0 [facility] Comment on above: Performed By: #### F OL #### [address] [address] Magnesiumon 02-15-2020 Magnesium [Mass/Vol] 2.1 mg/dL Normal 1.7-2.4 [facility] Comment on above: Performed By: #### T IBC #### [address] [address] Nephrology Progress Noteon 0 02-15-2020 Nephrology Progress [...] acute pulmonary process. Signed By: Manolo KUMAR, [facility] Computed Tomography No qualifying data available. Ultrasound No qualifying data available. Magnetic Resonance Imaging No qualifying data available. Nuclear Medicine No qualifying data available. Physical Exam Lungs: [Clear, non-labored respiration]. Heart: [Normal rate, regular rhythm, no edema]. Abdomen: [Soft, non-tender, non-distended, normal bowel sounds]. Mental Status:[Alert and oriented x3]. Medications Inpatient acetaminophen, 650 mg, Oral, q6hr, PRN acetaminophen, 1000 mg, Oral, [id number] Times ALPRAZolam, 0.25 mg, Oral, HS (at bedtime) calcitriol, 0.25 mcg, Oral, Mo// Dulcolax Laxative, 10 mg, Oral, Daily, PRN Haldol, 2.5 mg, 0.5 mL, IM, [id number] Times, PRN hydrALAZINE, 25 mg, Oral, TID Lovenox, 30 mg, 0.3 mL, Subcutaneous, q24hr meclizine, 25 mg, Oral, TID, PRN MiraLax, 17 g, 1 EA, Oral, Daily naloxone, 0.4 mg, 1 mL, IV Push, q2min, PRN [place] 5 mg-325 mg oral tablet, 1 tabs, [...] by Dr. Jordan on 02/09 Discharged to [place] for rehab post surgery. 6. Intertrochanteric fracture [...] Hearing loss sensory, bilateral Discharge planning to [place]. Follow-up with Dr. Chew on discharge. Electronically [...] NIELSON Herberthdavid Hadley 02/15/20 23:31 EDT Normal [facility] Progress Note-Nurseon 2019 Progress Note-Nurse Nurse Joanna called [facility] to give report regarding the discharge. Nurse [...] by Joanna Lai 02/15/20 13:31 EDT Normal [facility] Provider Letteron 02-15-2020 Provider Letter Justino Dhaliwal DO [address] [place] [id number] Re: Meenu Nolan Date of Visit: 02/09/2020 Dear Justino Dhaliwal, I had the pleasure of taking care of your patient in the hospital. I have included my documentation for your review. Please let me know if you have any questions or concerns. Sincerely, Valerie Mota, GLORIA-PHYSICAL THERAPIST C C Providers: The following document(s) were included in the letter: February 15, 2020 10:09:39 EDT - (02/15/2020) Hospitalist Discharge Summary Note Normal [facility] Renal Panelon 02-15-2020 Albumin [Mass/Vol] 3.0 g/dL Low 3.2-4.9 [facility] Comment on above: Result Comment: [facility] Laboratory updated the methodology used for albumin testing on 05/04/18. Albumin measurement was performed using a bromcresol purple dye-binding assay. Performed By: #### E GFR #### [address] [address] Anion gap [Moles/Vol] 15 mmol/L Normal 7-17 [facility] Comment on above: Performed By: #### E GFR #### [address] [address] Calcium [Mass/Vol] 8.2 mg/dL Low 8.5-10.3 [facility] Comment on above: Performed By: #### E GFR #### [address] [address] Chloride [Moles/Vol] 103 mmol/L Normal 98-110 [facility] Comment on above: Performed By: #### E GFR #### [address] [address] CO2 [Moles/Vol] 25 mmol/L Normal 22-32 [facility] Comment on above: Performed By: #### E GFR #### [address] [address] Creatinine [Mass/Vol] 1.51 mg/dL High 0.44-1.03 [facility] Comment on above: Performed By: #### E GFR #### [address] [address] Glucose [Mass/Vol] 105 mg/dL High 70-99 [facility] Comment on above: Performed By: #### E GFR #### [address] [address] Phosphate [Mass/Vol] 3.4 mg/dL Normal 2.5-4.6 [facility] Comment on above: Performed By: #### E GFR #### [address] [address] Potassium [Moles/Vol] 4.4 mmol/L Normal 3.4-4.8 [facility] Comment on above: Performed By: #### E GFR #### [address] [address] Sodium [Moles/Vol] 139 mmol/L Normal 133-142 [facility] Comment on above: Performed By: #### E GFR #### [address] [address] Urea nitrogen [Mass/Vol] 26 mg/dL Normal 8-26 [facility] Comment on above: Performed By: #### E GFR #### [address] [address] Urea nitrogen/Creatinine [Mass ratio] 17.2 mg/mg Normal 10.0-20.0 [facility] Comment on above: Performed By: #### E GFR #### [address] [address] [id number] RNA PCR Send O ut 02-15-2020 [id number] RNA by PCR Not Detected Normal Not Detected [facility] Comment on above: Order Comment: utmcf or nh placement in a couple days Result Comment: Miss ing Attachment Chartable Reference Lab Reports Can be viewed in source system Performed By: #### E GFR #### [address] [address] .eGFRon 02-14-2020 eGFR Non-AA 37 mL/min/1.73m? Low >=60 [facility] Comment on above: Result Comment: Resu lt [...] dosing. Performed By: #### E GFR #### [address] [address] eGFR AA 45 mL/min/1.73m? Low >=60 [facility] Comment on above: Result Comment: Resu lt = 0-14.9 mL/min/1.73 m2 Kidney failure or Dialysis Result = 15-29 mL/min/1.73 m2 Severe decrease in GFR Result = 30-59 mL/min/1.73 m2 Moderate decrease in GFR Result >= 60 mL/min/1.73 m2 Normal or increased GFR Performed By: #### E GFR #### [address] [address] CBCon 02-14-2020 Erythrocyte distribution width (RBC) [Ratio] 14.5 % Normal 11.6-14.8 [facility] Comment on above: Performed By: #### T IBC #### [address] [address] Hematocrit (Bld) [Volume fraction] 26.8 % Low 36.0-46.0 [facility] Comment on above: Performed By: #### T IBC #### [address] [address] Hemoglobin (Bld) [Mass/Vol] 8.8 g/dL Low 12.0-16.0 [facility] Comment on above: Performed By: #### T IBC #### [address] [address] MCH (RBC) [Entitic mass] 30.6 pg Normal 27.0-35.0 [facility] Comment on above: Performed By: #### T IBC #### [address] [address] MCHC (RBC) [Mass/Vol] 33.0 % Normal 31.0-37.0 [facility] Comment on above: Performed By: #### T IBC #### [address] [address] MCV (RBC) [Entitic vol] 92.8 fL Normal 80.0-100.0 [facility] Comment on above: Performed By: #### T IBC #### [address] [address] Platelet mean volume (Bld) [Entitic vol] 8.7 fL Normal 6.7-10.6 [facility] Comment on above: Performed By: #### T IBC #### [address] [address] Platelets (Bld) [#/Vol] 190 x10*3/mcL Normal 150-350 [facility] Comment on above: Performed By: #### T IBC #### [address] [address] RBC (Bld) [#/Vol] 2.89 x10*6/mcL Low 3.80-5.20 [facility] Comment on above: Performed By: #### T IBC #### [address] [address] WBC (Bld) [#/Vol] 8.6 x10*3/mcL Normal 4.5-11.0 [facility] Comment on above: Performed By: #### T IBC #### [address] [address] Magnesiumon 02-14-2020 Magnesium [Mass/Vol] 2.2 mg/dL Normal 1.7-2.4 [facility] Comment on above: Performed By: #### P [facility] #### [facility] [address] [place] [address] Nephrology Progress Noteon 0 02-14-2020 Nephrology Progress [...] Oral, q6hr, PRN acetaminophen, 1000 mg, Oral, [id number]-Otrvogwb Times ALPRAZolam, 0.25 mg, Oral, HS (at bedtime) calcitriol, 0.25 mcg, Oral, Mo// Dulcolax Laxative, 10 mg, Oral, Daily, PRN Haldol, 2.5 mg, 0.5 mL, IM, [id number]-[id number] Times, PRN hydrALAZINE, 25 mg, Oral, TID Lovenox, 30 mg, 0.3 mL, Subcutaneous, q24hr meclizine, 25 mg, Oral, TID, PRN naloxone, 0.4 mg, 1 mL, IV Push, q2min, PRN Waverly 5 mg-325 mg oral tablet, 1 tabs, [...] Hearing loss sensory, bilateral Possible discharge to [place] testing pending. Follow-up with Dr. Chew [...] Dilan Chew DO 02/14/20 22:40 EDT Normal [facility] Orthopedic Progress Noteon 0 02-14-2020 Orthopedic Progress [...] Oral, q6hr, PRN acetaminophen, 1000 mg, Oral, [id number]-Ofnjpclc Times ALPRAZolam, 0.25 mg, Oral, HS (at bedtime) calcitriol, 0.25 mcg, Oral, Mo/We/Fr Dulcolax Laxative, 10 mg, Oral, Daily, PRN Haldol, 2.5 mg, 0.5 mL, IM, [id number] Times, PRN hydrALAZINE, 25 mg, Oral, TID Lovenox, 30 mg, 0.3 mL, Subcutaneous, q24hr meclizine, 25 mg, Oral, TID, PRN MiraLax, 17 g, 1 EA, Oral, Daily naloxone, 0.4 mg, 1 mL, IV Push, q2min, PRN Waverly 5 mg-325 mg oral tablet, 1 tabs, [...] Naman Edmond PA-C 02/14/20 19:09 EDT Normal [facility] Renal Panelon 02-14-2020 Albumin [Mass/Vol] 2.9 g/dL Low 3.2-4.9 [facility] Comment on above: Result Comment: [facility] Laboratory updated the methodology used for albumin testing on 05/04/18. Albumin measurement was performed using a bromcresol purple dye-binding assay. Performed By: #### E GFR #### [address] [address] Anion gap [Moles/Vol] 14 mmol/L Normal 7-17 [facility] Comment on above: Performed By: #### E GFR #### [address] [address] Calcium [Mass/Vol] 8.1 mg/dL Low 8.5-10.3 [facility] Comment on above: Performed By: #### E GFR #### [address] [address] Chloride [Moles/Vol] 103 mmol/L Normal 98-110 [facility] Comment on above: Performed By: #### E GFR #### [address] [address] CO2 [Moles/Vol] 25 mmol/L Normal 22-32 [facility] Comment on above: Performed By: #### E GFR #### [address] [address] Creatinine [Mass/Vol] 1.37 mg/dL High 0.44-1.03 [facility] Comment on above: Performed By: #### E GFR #### [address] [address] Glucose [Mass/Vol] 115 mg/dL High 70-99 [facility] Comment on above: Performed By: #### E GFR #### [address] [address] Phosphate [Mass/Vol] 2.0 mg/dL Low 2.5-4.6 [facility] Comment on above: Performed By: #### E GFR #### [address] [address] Potassium [Moles/Vol] 3.9 mmol/L Normal 3.4-4.8 [facility] Comment on above: Performed By: #### E GFR #### [place] [id number] Sodium [Moles/Vol] 138 mmol/L Normal 133-142 [facility] Comment on above: Performed By: #### E GFR #### [address] [address] Urea nitrogen [Mass/Vol] 20 mg/dL Normal 8-26 [facility] Comment on above: Performed By: #### E GFR #### [place] [id number] Urea nitrogen/Creatinine [Mass ratio] 14.6 mg/mg Normal 10.0-20.0 [facility] Comment on above: Performed By: #### E GFR #### [place] [id number] .UA Microscp Aon 02-13-2020 UA Mucus Present Abnormal Absent [facility] Comment on above: Performed By: #### C [id number] #### [address] [address] UA RBC Quant 0 /HPF Normal 0-5 [facility] Comment on above: Performed By: #### C [id number] #### [address] [address] UA WBC Quant 0 /HPF Normal 0-5 [facility] Comment on above: Performed By: #### C [id number] #### [address] [address] .eGFRon 02-13-2020 eGFR Non-AA 30 mL/min/1.73m? Low >=60 [facility] Comment on above: Order Comment: Order added [...] dosing. Performed By: #### E GFR #### [place] [id number] eGFR AA 36 mL/min/1.73m? Low >=60 [facility] Comment on above: Order Comment: Order added by Discern rule Result Comment: Resu lt = 0-14.9 mL/min/1.73 m2 Kidney failure or Dialysis Result = 15-29 mL/min/1.73 m2 Severe decrease in GFR Result = 30-59 mL/min/1.73 m2 Moderate decrease in GFR Result >= 60 mL/min/1.73 m2 Normal or increased GFR Performed By: #### E GFR #### [place] [id number] CBCon 02-13-2020 Erythrocyte distribution width (RBC) [Ratio] 14.5 % Normal 11.6-14.8 [facility] Comment on above: Performed By: #### E GFR #### [address] [address] Hematocrit (Bld) [Volume fraction] 27.6 % Low 36.0-46.0 [facility] Comment on above: Performed By: #### E GFR #### [address] [address] Hemoglobin (Bld) [Mass/Vol] 9.1 g/dL Low 12.0-16.0 [facility] Comment on above: Performed By: #### E GFR #### [address] [address] MCH (RBC) [Entitic mass] 30.7 pg Normal 27.0-35.0 [facility] Comment on above: Performed By: #### E GFR #### [address] [address] MCHC (RBC) [Mass/Vol] 32.9 % Normal 31.0-37.0 [facility] Comment on above: Performed By: #### E GFR #### [address] [address] MCV (RBC) [Entitic vol] 93.2 fL Normal 80.0-100.0 [facility] Comment on above: Performed By: #### E GFR #### [address] [address] Platelet mean volume (Bld) [Entitic vol] 9.0 fL Normal 6.7-10.6 [facility] Comment on above: Performed By: #### E GFR #### [address] [address] Platelets (Bld) [#/Vol] 169 x10*3/mcL Normal 150-350 [facility] Comment on above: Performed By: #### E GFR #### [address] [address] RBC (Bld) [#/Vol] 2.96 x10*6/mcL Low 3.80-5.20 [facility] Comment on above: Performed By: #### E GFR #### [address] [address] WBC (Bld) [#/Vol] 9.8 x10*3/mcL Normal 4.5-11.0 [facility] Comment on above: Performed By: #### E GFR #### [address] [address] Splash Line Operator Progress Noteon 02-13-2020 Splash Line Operator Progress Note Second IMM letter delivered to patient. Electronically signed by Kasie Flowers 02/13/20 09:58 EDT Normal [facility] Magnesiumon 02-13-2020 Magnesium [Mass/Vol] 2.3 mg/dL Normal 1.7-2.4 [facility] Comment on above: Performed By: #### E GFR #### [facility] [address] [place] [address] Nephrology Progress Noteon 0 02-13-2020 Nephrology Progress [...] mg, 1 mL, IV Push, q2min, PRN Waverly 5 mg-325 mg oral tablet, 1 tabs, [...] Dilan Chew DOariobenito 02/13/20 23:09 EDT Normal [facility] Orthopedic Progress Noteon 0 02-13-2020 Orthopedic Progress [...] Oral, q6hr, PRN acetaminophen, 1000 mg, Oral, [id number]-[id number] Times ALPRAZolam, 0.25 mg, Oral, HS (at bedtime) calcitriol, 0.25 mcg, Oral, Mo/We/Fr Dulcolax Laxative, 10 mg, Oral, Daily, PRN Haldol, 2.5 mg, 0.5 mL, IM, [id number]-[id number] Times, PRN hydrALAZINE, 25 mg, Oral, TID Lovenox, 30 mg, 0.3 mL, Subcutaneous, q24hr meclizine, 25 mg, Oral, TID, PRN naloxone, 0.4 mg, 1 mL, IV Push, q2min, PRN Waverly 5 mg-325 mg oral tablet, 1 tabs, [...] prophylaxis, and PT. Okay to DC to group home facility from orthopedic standpoint. Follow-up at [facility] with Dr. Jordan in 2 weeks. 3. Chronic kidney disease 4. Electrolyte abnormality 5. Renal osteodystrophy 6. Hypertension 7. Status post hip surgery 8. Laceration of head 9. Hearing loss sensory, bilateral 10. Anemia Electronically signed by Naman Edmond PA-C 02/13/20 17:38 EDT Normal [facility] Renal Panelon 02-13-2020 Albumin [Mass/Vol] 3.4 g/dL Normal 3.2-4.9 [facility] Comment on above: Result Comment: [facility] Laboratory updated the methodology used for albumin testing on 05/04/18. Albumin measurement was performed using a bromcresol purple dye-binding assay. Performed By: #### R ENAL #### [address] [address] Anion gap [Moles/Vol] 13 mmol/L Normal 7-17 [facility] Comment on above: Performed By: #### R ENAL #### [address] [address] Calcium [Mass/Vol] 8.0 mg/dL Low 8.5-10.3 [facility] Comment on above: Performed By: #### R ENAL #### [address] [address] Chloride [Moles/Vol] 105 mmol/L Normal 98-110 [facility] Comment on above: Performed By: #### R ENAL #### [address] [address] CO2 [Moles/Vol] 26 mmol/L Normal 22-32 [facility] Comment on above: Performed By: #### R ENAL #### [address] [address] Creatinine [Mass/Vol] 1.64 mg/dL High 0.44-1.03 [facility] Comment on above: Performed By: #### R ENAL #### [address] [address] Glucose [Mass/Vol] 114 mg/dL High 70-99 [facility] Comment on above: Performed By: #### R ENAL #### [address] [address] Phosphate [Mass/Vol] 2.8 mg/dL Normal 2.5-4.6 [facility] Comment on above: Performed By: #### R ENAL #### [address] [address] Potassium [Moles/Vol] 4.2 mmol/L Normal 3.4-4.8 [facility] Comment on above: Performed By: #### R ENAL #### [address] [address] Sodium [Moles/Vol] 140 mmol/L Normal 133-142 [facility] Comment on above: Performed By: #### R ENAL #### [address] [address] Urea nitrogen [Mass/Vol] 23 mg/dL Normal 8-26 [facility] Comment on above: Performed By: #### R ENAL #### [address] [address] Urea nitrogen/Creatinine [Mass ratio] 14.0 mg/mg Normal 10.0-20.0 [facility] Comment on above: Performed By: #### R ENAL #### [address] [address] UA w Culture if Indon 2019 Color (U) Yellow Normal [facility] Comment on above: Performed By: #### T IBC #### [address] [address] Glucose (U) [Mass/Vol] Negative Normal Negative [facility] Comment on above: Performed By: #### T IBC #### [facility] [address] [place] [address], [place] [address] Ketones Ql (U) Negative Normal Negative [facility] Comment on above: Performed By: #### T IBC #### [facility] [address] [place] [address], [place] [address] UA Blood Moderate Abnormal Negative [facility] Comment on above: Performed By: #### T IBC #### [address] [place] [address] UA Clarity Hazy Normal [facility] Comment on above: Performed By: #### T IBC #### [address] [place] [address] UA Leukocyte Esterase Negative Normal Negative [facility] Comment on above: Performed By: #### T IBC #### [address] [place] [address] UA Nitrite Negative Normal Negative [facility] Comment on above: Performed By: #### T IBC #### [address] [place] [address] UA pH 5.0 Normal 4.5 - 7.8 [facility] Comment on above: Performed By: #### T IBC #### [facility] [address] [place] [address] UA Protein 30 mg/dL Abnormal Negative [facility] Comment on above: Performed By: #### T IBC #### [address] [place] [address] UA Source Clean Catch Normal [facility] Comment on above: Performed By: #### T IBC #### [address] [place] [address] UA Spec Grav 1.014 Normal 1.003-1.035 [facility] Comment on above: Performed By: #### T IBC #### [address] [place] [address] UA Urobilinogen 0.2 mg/dL Normal 0.2 - 1.0 [facility] Comment on above: Performed By: #### T IBC #### [place] [id number] Urobilinogen Qn (U) Negative Normal Negative [facility] Comment on above: Performed By: #### T IBC #### [address] [address] .eGFRon 02-12-2020 eGFR AA 44 mL/min/1.73m? Low >=60 [facility] Comment on above: Order Comment: Order added by Discern rule Result Comment: Resu lt = 0-14.9 mL/min/1.73 m2 Kidney failure or Dialysis Result = 15-29 mL/min/1.73 m2 Severe decrease in GFR Result = 30-59 mL/min/1.73 m2 Moderate decrease in GFR Result >= 60 mL/min/1.73 m2 Normal or increased GFR Performed By: #### E GFR #### [place] [address] eGFR Non-AA 36 mL/min/1.73m? Low >=60 [facility] Comment on above: Order Comment: Order added [...] dosing. Performed By: #### E GFR #### [address] [address] CBCon 02-12-2020 Erythrocyte distribution width (RBC) [Ratio] 14.3 % Normal 11.6-14.8 [facility] Comment on above: Performed By: #### T IBC #### [address] [address] Hematocrit (Bld) [Volume fraction] 28.6 % Low 36.0-46.0 [facility] Comment on above: Performed By: #### T IBC #### [address] [address] Hemoglobin (Bld) [Mass/Vol] 9.4 g/dL Low 12.0-16.0 [facility] Comment on above: Performed By: #### T IBC #### [address] [address] MCH (RBC) [Entitic mass] 31.0 pg Normal 27.0-35.0 [facility] Comment on above: Performed By: #### T IBC #### [address] [address] MCHC (RBC) [Mass/Vol] 33.0 % Normal 31.0-37.0 [facility] Comment on above: Performed By: #### T IBC #### [address] [address] MCV (RBC) [Entitic vol] 93.9 fL Normal 80.0-100.0 [facility] Comment on above: Performed By: #### T IBC #### [address] [address] Platelet mean volume (Bld) [Entitic vol] 8.7 fL Normal 6.7-10.6 [facility] Comment on above: Performed By: #### T IBC #### [address] [address] Platelets (Bld) [#/Vol] 136 x10*3/mcL Low 150-350 [facility] Comment on above: Performed By: #### T IBC #### [address] [address] RBC (Bld) [#/Vol] 3.05 x10*6/mcL Low 3.80-5.20 [facility] Comment on above: Performed By: #### T IBC #### [facility] [address] [place] [address] WBC (Bld) [#/Vol] 11.4 x10*3/mcL High 4.5-11.0 [facility] Comment on above: Performed By: #### T IBC #### [facility] [address] [place] [address] Magnesiumon 02-12-2020 Magnesium [Mass/Vol] 2.5 mg/dL High 1.7-2.4 [facility] Comment on above: Performed By: #### M G #### [facility] [address] [place] [address] Nephrology Progress Noteon 0 02-12-2020 Nephrology Progress [...] acute pulmonary process. Signed By: Manolo KUMAR, [facility] XR Femur 2 or More Views Left [...] mg, 1 mL, IV Push, q2min, PRN Waverly 5 mg-325 mg oral tablet, 1 tabs, [...] Dilan Chew DO 02/12/20 21:34 EDT Normal [facility] Orthopedic Progress Noteon 0 02-12-2020 Orthopedic Progress [...] mg, 1 mL, IV Push, q2min, PRN Waverly 5 mg-325 mg oral tablet, 1 tabs, [...] Naman Edmond PA-C 02/12/20 11:16 EDT Normal [facility] PTH-INTon 02-12-2020 PTH Intact 94 pg/mL High 12-88 [facility] Comment on above: Performed By: #### P HOS #### [address] [address] Procalcitonin Levelon 2019 Procalcitonin Lvl 0.54 ng/mL High <=0.49 [facility] Comment on above: Result Comment: < 0. [...] hours. Performed By: #### E GFR #### [address] [address] Progress Note - [employer] Progress Note - [...] mg, 1 mL, IV Push, q2min, PRN Waverly 5 mg-325 mg oral tablet, 1 tabs, [...] by Kenyatta Pena 02/12/20 10:03 EDT Normal [facility] Progress Note-Nurseon 2019 Progress Note-Nurse Attempted to administer morning meds and new meds that were ordered by nephrology. Patient is currently confused and combative, and refusing all patient care. Electronically signed by Mery De La Rosa 02/12/20 13:24 EDT Normal [facility] Renal Panelon 02-12-2020 Albumin [Mass/Vol] 3.6 g/dL Normal 3.2-4.9 [facility] Comment on above: Result Comment: [facility] Laboratory updated the methodology used for albumin testing on 05/04/18. Albumin measurement was performed using a bromcresol purple dye-binding assay. Performed By: #### P HOS #### [address] [address] Anion gap [Moles/Vol] 14 mmol/L Normal 7-17 [facility] Comment on above: Performed By: #### P HOS #### [address] [address] Calcium [Mass/Vol] 8.1 mg/dL Low 8.5-10.3 [facility] Comment on above: Performed By: #### P HOS #### [address] [address] Chloride [Moles/Vol] 98 mmol/L Normal 98-110 [facility] Comment on above: Performed By: #### P HOS #### [address] [address] CO2 [Moles/Vol] 26 mmol/L Normal 22-32 [facility] Comment on above: Performed By: #### P HOS #### [address] [address] Creatinine [Mass/Vol] 1.39 mg/dL High 0.44-1.03 [facility] Comment on above: Performed By: #### P HOS #### [address] [address] Glucose [Mass/Vol] 134 mg/dL High 70-99 [facility] Comment on above: Performed By: #### P HOS #### [address] [address] Phosphate [Mass/Vol] 2.6 mg/dL Normal 2.5-4.6 [facility] Comment on above: Performed By: #### P HOS #### [address] [address] Potassium [Moles/Vol] 3.8 mmol/L Normal 3.4-4.8 [facility] Comment on above: Performed By: #### P HOS #### [address] [address] Sodium [Moles/Vol] 134 mmol/L Normal 133-142 [facility] Comment on above: Performed By: #### P HOS #### [address] [address] Urea nitrogen [Mass/Vol] 21 mg/dL Normal 8-26 [facility] Comment on above: Performed By: #### P HOS #### [address] [address] Urea nitrogen/Creatinine [Mass ratio] 15.1 mg/mg Normal 10.0-20.0 [facility] Comment on above: Performed By: #### P HOS #### [address] [address] XR Chest 1 Viewon 02-12-2020 XR Chest [...] Electronically Signed in Other Vendor System) Normal [facility] .eGFRon 02-11-2020 eGFR Non-AA 33 mL/min/1.73m? Low >=60 [facility] Comment on above: Order Comment: Order added [...] dosing. Performed By: #### F OL #### [place] [address] eGFR AA 40 mL/min/1.73m? Low >=60 [facility] Comment on above: Order Comment: Order added by Discern rule Result Comment: Resu lt = 0-14.9 mL/min/1.73 m2 Kidney failure or Dialysis Result = 15-29 mL/min/1.73 m2 Severe decrease in GFR Result = 30-59 mL/min/1.73 m2 Moderate decrease in GFR Result >= 60 mL/min/1.73 m2 Normal or increased GFR Performed By: #### F OL #### [address] [address] B12on 02-11-2020 Cobalamin (Vitamin B12) [Mass/Vol] 135 pg/mL Low 180-914 [facility] Comment on above: Order Comment: ok to add on to am labs per [place]02/11/2020 12:08:01 EDT cbowman Performed By: #### T IBC #### [address] [address] CBCon 02-11-2020 Erythrocyte distribution width (RBC) [Ratio] 14.2 % Normal 11.6-14.8 [facility] Comment on above: Performed By: #### P HOS #### [address] [address] Hematocrit (Bld) [Volume fraction] 32.5 % Low 36.0-46.0 [facility] Comment on above: Performed By: #### P HOS #### [address] [address] Hemoglobin (Bld) [Mass/Vol] 10.6 g/dL Low 12.0-16.0 [facility] Comment on above: Performed By: #### P HOS #### [address] [address] MCH (RBC) [Entitic mass] 30.9 pg Normal 27.0-35.0 [facility] Comment on above: Performed By: #### P HOS #### [address] [address] MCHC (RBC) [Mass/Vol] 32.6 % Normal 31.0-37.0 [facility] Comment on above: Performed By: #### P HOS #### [address] [address] MCV (RBC) [Entitic vol] 94.6 fL Normal 80.0-100.0 [facility] Comment on above: Performed By: #### P HOS #### [address] [address] Platelet mean volume (Bld) [Entitic vol] 8.5 fL Normal 6.7-10.6 [facility] Comment on above: Performed By: #### P HOS #### [address] [address] Platelets (Bld) [#/Vol] 156 x10*3/mcL Normal 150-350 [facility] Comment on above: Performed By: #### P HOS #### [address] [address] RBC (Bld) [#/Vol] 3.44 x10*6/mcL Low 3.80-5.20 [facility] Comment on above: Performed By: #### P HOS #### [address] [address] WBC (Bld) [#/Vol] 11.3 x10*3/mcL High 4.5-11.0 [facility] Comment on above: Performed By: #### P HOS #### [address] [address] Ferritinon 02-11-2020 Ferritin [Mass/Vol] 75.8 ng/mL Normal 11.0-306.8 [facility] Comment on above: Performed By: #### T IBC #### [address] [address] Folate Lvlon 02-11-2020 Folate Lvl 4.0 ng/mL Low >=5.9 [facility] Comment on above: Result Comment: A WH O Technical Consultation has determined that deficient Folate concentrations are considered to be less than 4 ng/mL. Performed By: #### F OL #### [address] [address] Magnesiumon 02-11-2020 Magnesium [Mass/Vol] 1.6 mg/dL Low 1.7-2.4 [facility] Comment on above: Performed By: #### E GFR #### [address] [address] Nephrology Progress Noteon 0 02-11-2020 Nephrology Progress [...] mg, 1 mL, IV Push, q2min, PRN Waverly 5 mg-325 mg oral tablet, 1 tabs, [...] Dose: 02/11/20 14:00:00 EDT, Dispense From Location: [facility] Electronically signed by Dilan Chew DO 02/11/20 20:26 EDT Normal [facility] Orthopedic Progress Noteon 0 02-11-2020 Orthopedic Progress [...] Date: 02/11/20 13:56:00 EDT, Dispense From Location: [facility], Prophylaxis- Pre/Post-Op enoxaparin, 30 mg, Subcutaneous, Injection, q24hr, First Dose: 02/11/20 13:00:00 EDT, Dispense From Location: [id number] hydrocodone-acetaminop hen, 1 tabs, Oral, Tab, q4hr, PRN moderate pain [4-6 on pain scale], First Dose: 02/10/20 13:57:00 EDT, Dispense From Location: [id number] sodium chloride, 10 mL, IV Push, Injection, As Indicated, PRN flush, First Dose: 02/10/20 14:05:00 EDT, Dispense From Location: [id number] Basic Metabolic Profile Below the Knee Graduated [...] Chele Jordan MD 02/11/20 09:11 EDT Normal [facility] Progress Note - [employer] Progress Note - [...] mg, 1 mL, IV Push, q2min, PRN Waverly 5 mg-325 mg oral tablet, 1 tabs, [...] by Sneha Martell 02/11/20 17:37 EDT Normal [facility] Renal Panelon 02-11-2020 Albumin [Mass/Vol] 2.9 g/dL Low 3.2-4.9 [facility] Comment on above: Result Comment: [facility] Laboratory updated the methodology used for albumin testing on 05/04/18. Albumin measurement was performed using a bromcresol purple dye-binding assay. Performed By: #### F OL #### [address] [address] Anion gap [Moles/Vol] 12 mmol/L Normal 7-17 [facility] Comment on above: Performed By: #### F OL #### [address] [address] Calcium [Mass/Vol] 8.0 mg/dL Low 8.5-10.3 [facility] Comment on above: Performed By: #### F OL #### [address] [address] Chloride [Moles/Vol] 99 mmol/L Normal 98-110 [facility] Comment on above: Performed By: #### F OL #### [address] [address] CO2 [Moles/Vol] 25 mmol/L Normal 22-32 [facility] Comment on above: Performed By: #### F OL #### [address] [address] Creatinine [Mass/Vol] 1.51 mg/dL High 0.44-1.03 [facility] Comment on above: Performed By: #### F OL #### [address] [address] Glucose [Mass/Vol] 193 mg/dL High 70-99 [facility] Comment on above: Performed By: #### F OL #### [address] [address] Phosphate [Mass/Vol] 2.2 mg/dL Low 2.5-4.6 [facility] Comment on above: Performed By: #### F OL #### [address] [address] Potassium [Moles/Vol] 4.0 mmol/L Normal 3.4-4.8 [facility] Comment on above: Performed By: #### F OL #### [address] [address] Sodium [Moles/Vol] 132 mmol/L Low 133-142 [facility] Comment on above: Performed By: #### F OL #### [address] [address] Urea nitrogen [Mass/Vol] 29 mg/dL High 8-26 [facility] Comment on above: Performed By: #### F OL #### [address] [address] Urea nitrogen/Creatinine [Mass ratio] 19.2 mg/mg Normal 10.0-20.0 [facility] Comment on above: Performed By: #### F OL #### [address] [address] TIBCon 02-11-2020 Iron [Mass/Vol] 22 ug/dL Low 28-170 [facility] Comment on above: Performed By: #### T IBC #### [address] [address] Iron Sat 7.6 % Low >=16.0 [facility] Comment on above: Performed By: #### T IBC #### [address] [address] TIBC 288 mcg/dL Normal 261-478 [facility] Comment on above: Performed By: #### T IBC #### [address] [address] Transferrin [Mass/Vol] 193 mg/dL Normal 192-382 [facility] Comment on above: Performed By: #### T IBC #### [address] [address] XR Femur 2 or More Views Lef [...] Electronically Signed in Other Vendor System) Normal [facility] .eGFRon 02-10-2020 eGFR Non-AA 26 mL/min/1.73m? Low >=60 [facility] Comment on above: Result Comment: Resu lt [...] dosing. Performed By: #### T IBC #### [address] [address] eGFR AA 31 mL/min/1.73m? Low >=60 [facility] Comment on above: Result Comment: Resu lt = 0-14.9 mL/min/1.73 m2 Kidney failure or Dialysis Result = 15-29 mL/min/1.73 m2 Severe decrease in GFR Result = 30-59 mL/min/1.73 m2 Moderate decrease in GFR Result >= 60 mL/min/1.73 m2 Normal or increased GFR Performed By: #### T IBC #### [address] [address] CBC w/ Diffon 02-10-2020 Erythrocyte distribution width (RBC) [Ratio] 14.8 % Normal 11.6-14.8 [facility] Comment on above: Performed By: #### P HOS #### [address] [address] Hematocrit (Bld) [Volume fraction] 38.8 % Normal 36.0-46.0 [facility] Comment on above: Performed By: #### P HOS #### [address] [address] Hemoglobin (Bld) [Mass/Vol] 12.4 g/dL Normal 12.0-16.0 [facility] Comment on above: Performed By: #### P HOS #### [address] [address] MCH (RBC) [Entitic mass] 30.0 pg Normal 27.0-35.0 [facility] Comment on above: Performed By: #### P HOS #### [address] [address] MCHC (RBC) [Mass/Vol] 32.1 % Normal 31.0-37.0 [facility] Comment on above: Performed By: #### P HOS #### [address] [address] MCV (RBC) [Entitic vol] 93.5 fL Normal 80.0-100.0 [facility] Comment on above: Performed By: #### P HOS #### [address] [address] Platelet mean volume (Bld) [Entitic vol] 8.2 fL Normal 6.7-10.6 [facility] Comment on above: Performed By: #### P HOS #### [address] [address] Platelets (Bld) [#/Vol] 198 x10*3/mcL Normal 150-350 [facility] Comment on above: Performed By: #### P HOS #### [address] [address] RBC (Bld) [#/Vol] 4.15 x10*6/mcL Normal 3.80-5.20 [facility] Comment on above: Performed By: #### P HOS #### [address] [address] WBC (Bld) [#/Vol] 11.1 x10*3/mcL High 4.5-11.0 [facility] Comment on above: Performed By: #### P HOS #### [address] [address] [facility] 02-10-2020 Albumin [Mass/Vol] 3.7 g/dL Normal 3.2-4.9 [facility] Comment on above: Result Comment: [facility] Laboratory updated the methodology used for albumin testing on 05/04/18. Albumin measurement was performed using a bromcresol purple dye-binding assay. Performed By: #### T IBC #### [address] [address] Albumin/Globulin [Mass ratio] 1.3 {ratio} Normal 1.1-2.2 [facility] Comment on above: Performed By: #### T IBC #### [address] [address] Alk Phos 89 IU/L Normal 32-91 [facility] Comment on above: Performed By: #### T IBC #### [address] [address] ALT [Catalytic activity/Vol] 20 U/L Normal 14-54 [facility] Comment on above: Performed By: #### T IBC #### [address] [address] Anion gap [Moles/Vol] 17 mmol/L Normal 7-17 [facility] Comment on above: Performed By: #### T IBC #### [address] [address] AST [Catalytic activity/Vol] 21 U/L Normal 15-41 [facility] Comment on above: Performed By: #### T IBC #### [address] [address] Bili Total 0.9 mg/dL Normal 0.3-1.2 [facility] Comment on above: Performed By: #### T IBC #### [address] [address] Calcium [Mass/Vol] 8.8 mg/dL Normal 8.5-10.3 [facility] Comment on above: Performed By: #### T IBC #### [address] [address] Chloride [Moles/Vol] 102 mmol/L Normal 98-110 [facility] Comment on above: Performed By: #### T IBC #### [address] [address] CO2 [Moles/Vol] 24 mmol/L Normal 22-32 [facility] Comment on above: Performed By: #### T IBC #### [address] [address] Creatinine [Mass/Vol] 1.87 mg/dL High 0.44-1.03 [facility] Comment on above: Performed By: #### T IBC #### [address] [place] [address] Glucose [Mass/Vol] 111 mg/dL High 70-99 [facility] Comment on above: Performed By: #### T IBC #### [address] [address] Potassium [Moles/Vol] 5.2 mmol/L High 3.4-4.8 [facility] Comment on above: Performed By: #### T IBC #### [address] [address] Protein [Mass/Vol] 6.6 g/dL Normal 6.5-8.1 [facility] Comment on above: Performed By: #### T IBC #### [address] [address] Sodium [Moles/Vol] 138 mmol/L Normal 133-142 [facility] Comment on above: Performed By: #### T IBC #### [address] [address] Urea nitrogen [Mass/Vol] 41 mg/dL High 8-26 [facility] Comment on above: Performed By: #### T IBC #### [address] [address] Urea nitrogen/Creatinine [Mass ratio] 21.9 mg/mg High 10.0-20.0 [facility] Comment on above: Performed By: #### T IBC #### [address] [address] Diff Autoon 02-10-2020 Baso Absolute 0.0 x10*3/mcL Normal 0.0-0.2 [facility] Comment on above: Performed By: #### T IBC #### [address] [address] Basophils/100 WBC (Bld) 0.2 % Normal 0.0-1.5 [facility] Comment on above: Performed By: #### T IBC #### [address] [address] Eos Absolute 0.0 x10*3/mcL Normal 0.0-0.4 [facility] Comment on above: Performed By: #### T IBC #### [address] [address] Eosinophils/100 WBC (Bld) 0.0 % Normal 0.0-5.4 [facility] Comment on above: Performed By: #### T IBC #### [address] [address] Lymphocytes (Bld) [#/Vol] 1.2 x10*3/mcL Normal 1.0-4.8 [facility] Comment on above: Performed By: #### T IBC #### [address] [address] Lymphocytes/100 WBC (Bld) 10.7 % Low 27.2-40.8 [facility] Comment on above: Performed By: #### T IBC #### [address] [address] Louisa Absolute 1.2 x10*3/mcL High 0.1-1.1 [facility] Comment on above: Performed By: #### T IBC #### [address] [address] Monocytes/100 WBC (Bld) 10.7 % Normal 3.7-11.9 [facility] Comment on above: Performed By: #### T IBC #### [address] [address] Neutro Absolute 8.7 x10*3/mcL High 1.8-7.7 [facility] Comment on above: Performed By: #### T IBC #### [address] [address] Neutro Auto 78.4 % High 47.2-70.8 [facility] Comment on above: Performed By: #### T IBC #### [address] [address] Magnesiumon 02-10-2020 Magnesium [Mass/Vol] 2.0 mg/dL Normal 1.7-2.4 [facility] Comment on above: Performed By: #### M G #### [address] [address] Nephrology Consultationon Nephrology Consultation Reason for Consultation [...] activation of EMS. Patient was taken to [facility] ER where she had some scans [...] chills, nausea or vomiting. being managed from [place] emergency emergency department for left intertrochanteric hip [...] Dose: 02/10/20 22:00:00 EDT, Dispense From Location: [facility] Magnesium Level Phosphorus Level Renal Function Panel [...] mg, 1 mL, IV Push, q2min, PRN Waverly 5 mg-325 mg oral tablet, 1 tabs, [...] by Dilan Chew DO 02/10/20 23:31 EDT [facility] Operative Reporton 0 Operative Report Indication for Surge ry Patient is an 84-year-old with a left hip fracture. Treatment options were discussed with her as well as risks and benefits and she elected to proceed with surgery. 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 She presented to [facility] ER where xrays revealed a left hip fracture. Patient was transferred to [facility] for treatment of this injury. Patient denies [...] Chele Jordan MD 02/10/20 12:20 EDT Normal [facility] Pharmacy Progress Noteon Pharmacy Progress Note Pharmacy [...] by Karen Uriarte 02/10/20 18:35 EDT Normal [facility] Phosphoruson 02-10-2020 Phosphate [Mass/Vol] 3.8 mg/dL Normal 2.5-4.6 [facility] Comment on above: Performed By: #### P HOS #### [facility] [address] [place] [address] Progress Note - [employer] Progress Note - [...] mg, 1 mL, IV Push, q2min, PRN Waverly 5 mg-325 mg oral tablet, 1 tabs, [...] she is not - Reported creatinine at [facility] was 2.42, creatinine significantly improved today at [...] by Sneha Martell 02/10/20 16:09 EDT Normal [facility] APTTon 02-09-2020 aPTT Coag (Bld) [Time] 27.1 s [place], [place] CBC Auto Differentialon 01-25 Basophils (Bld) [#/Vol] 10*3/uL [place] Basophils/100 WBC (Bld) 0 % 0 - 2 % [place], [place] Differential Type NOT REPORTED [place] Eosinophils (Bld) [#/Vol] 0.10 10*3/uL [place] Eosinophils/100 WBC (Bld) 1 % 1 - 4 % [place] Erythrocyte distribution width (RBC) [Ratio] 14.0 % 11.8 - 14.4 % [place] Hematocrit (Bld) [Volume fraction] 41.9 % 36.3 - 47.1 % [place] Hemoglobin (Bld) [Mass/Vol] 13.0 g/dL 11.9 - 15.1 g/dL [place] Immature granulocytes (Bld) [#/Vol] 0 % 0 [place] Immature granulocytes (Bld) [#/Vol] 10*3/uL [place] Lymphocytes (Bld) [#/Vol] 2.13 10*3/uL [place] Lymphocytes/100 WBC (Bld) 26 % 24 - 43 % [place] MCH (RBC) [Entitic mass] 30.1 pg 25.2 - 33.5 pg [place] MCHC (RBC) [Mass/Vol] 31.0 g/dL 28.4 - 34.8 g/dL [place] MCV (RBC) [Entitic vol] 97.0 fL 82.6 - 102.9 fL [place] Monocytes (Bld) [#/Vol] 0.78 10*3/uL [place] Monocytes/100 WBC (Bld) 10 % 3 - 12 % [place] Platelet mean volume (Bld) [Entitic vol] 10.7 fL 8.1 - 13.5 fL [place] Platelets (Bld) [#/Vol] NOT REPORTED [place] Platelets (Bld) [#/Vol] 197 10*3/uL [place] RBC (Bld) [#/Vol] 4.32 10*6/uL 3.95 - 5.1 1 m/uL [place] RBC morphology finding Nom (Bld) NOT REPORTED [place] Segmented neutrophils/100 WBC (Bld) 63 % 36 - 65 % [place] Segs Absolute 5.15 [place] WBC (Bld) [#/Vol] 0.0 10*3/uL 0.0 per 10 0 WBC [place] WBC (Bld) [#/Vol] 8.2 10*3/uL [place] WBC Morphology NOT REPORTED [place] CT CERVICAL SPINE WO CONTRAS Ton 02-09-2020 Damion, Mhpn Incoming Radiant Results From [employer] - 02/09/2020 12:08 PM EDT EXAMINATION: CT [...] with left bony foraminal narrowing at C5-6. [place], [place] EXAMINATION: CT OF T HE CERVICAL [...] The lung apices are without acute process. [place] No acute fracture or malalignment of the cervical spine. Multilevel degenerative disc disease with associated uncovertebral and facet hypertrophy with left bony foraminal narrowing at C5-6. [place], [place] CT Head WO Contraston 2019 [place], Mhpn Incoming Radiant Results From [employer] - 02/09/2020 11:56 AM EDT EXAMINATION: CT [...] acute CT abnormality identified in the brain. [place], [place] EXAMINATION: CT OF T HE HEAD [...] left posterosuperior scalp injury. No underlying fracture. [place] Left posterosuperior scalp injury without underlying fracture. No acute CT abnormality identified in the brain. [place] Comprehensive Metabolic Pane l w/ Reflex to MGon 02-09-2020 Albumin [Mass/Vol] 4.2 g/dL 3.5 - 5.2 g/dL [place] Albumin/Globulin [Mass ratio] 1.6 {ratio} [place] ALP [Catalytic activity/Vol] 97 U/L 35 - 104 U/L [place] ALT [Catalytic activity/Vol] 16 U/L 5 - 33 U/L [place] Anion gap [Moles/Vol] 16 mmol/L 9 - 17 mmol/L [place] AST [Catalytic activity/Vol] 19 U/L <32 [place] Bilirubin Ql (U) 0.38 mg/dL 0.3 - 1.2 mg/dL [place] Bun/Cre Ratio 18 [place] Calcium [Mass/Vol] 9.3 mg/dL 8.6 - 10. 4 mg/dL [place] Chloride [Moles/Vol] 102 mmol/L 98 - 10 7 mmol/L [place] CO2 [Moles/Vol] 23 mmol/L 20 - 31 mmol/L [place] Creatinine [Mass/Vol] 2.42 mg/dL High 0.5 - 0.9 mg/dL [place] GFR 23 mL/min Low >60 [place], [place] GFR Non- 19 mL/min Low >60 [place] Glucose [Mass/Vol] 132 mg/dL High 70 - 99 mg/dL [place] Interpretation and review of laboratory results Abnormal [place] Potassium [Moles/Vol] 4.5 mmol/L 3.7 - 5.3 mmol/L [place] Protein [Mass/Vol] 6.8 g/dL 6.4 - 8.3 g/dL [place] Sodium [Moles/Vol] 141 mmol/L 135 - 144 mmol/L [place] Urea nitrogen [Mass/Vol] 43 mg/dL High 8 - 23 mg/dL [place] History and Physicalon 02-08 History and Physical Chief Complaint Fall with left hip fracture. History of Present Illness Patient is a 84-year-old female being managed from [place] emergency emergency department for left intertrochanteric hip [...] and oriented, well nourished, no acute distress. [place] Eye: PERRL, EOMI, normal conjunctiva. HENT: Normocephalic, [...] every 4 hours as needed for nausea. director of employer services consult for discharge planning. 2. Fall See #1. 3. Laceration of head Scabbed. 4. Hypertension Continue hydrochlorothiazide and verapamil. 5. ESRD on dialysis Creatine in [place] was 2.42 Consult nephrology in the morning. 6. Hyperlipidemia Continue pravastatin. Medical Necessity for the hospitilization: Left intertrochanteric hip Fracture Complication Risk: Debility and . Activity at baseline: Independent Anticipated Discharge Location: [facility] facility Anticipated Discharge Date: Likely greater than [...] Modesta CASTRO-Anshul DE 02/09/20 18:20 EDT Normal [facility] Metabolic Panelon 02-09-2020 GFR/1.73 sq M predicted among non-blacks MDRD (S/P/Bld) [Vol rate/Area] [facility], [place] Comment on above: Average GFR for 70 o r more years old: 75 mL/min/1.73sq m Chronic Kidney Disease: <60 mL/min/1.73sq m Kidney failure: <15 mL/min/1.73sq m eGFR calculated using average adult body mass. Additional eGFR calculator available at: http://www.trueEX/multiple_crcl_2012.htm Stage 1: Some kidney damage normal GFR [...] by Fer Bautista 02/09/20 22:53 EDT Normal [facility] Protime-INRon 02-09-2020 INR Coag (PPP) [Relative time] 1.0 {INR} [facility], [place] PT Coag (PPP) [Time] 10.7 s [facility], [place] XR CHEST PORTABLEon 02-09-20 20 Damion, Mhpn Incoming Radiant Results From [employer] - 02/09/2020 11:50 AM EDT EXAMINATION: ONE XRAY VIEW OF THE CHEST 02/09/2020 11:43 am COMPARISON: 09/27/2017 HISTORY: ORDERING SYSTEM PROVIDED HISTORY: for admission TECHNOLOGIST PROVIDED HISTORY: for admission FINDINGS: The lungs are without acute focal process. There is no effusion or pneumothorax. The cardiomediastinal silhouette is stable. The osseous structures are stable. IMPRESSION: No acute process[facility]: ONE XRA Y VIEW OF THE CHEST 02/09/2020 11:43 am COMPARISON: 09/27/2017 HISTORY: ORDERING SYSTEM PROVIDED HISTORY: for admission TECHNOLOGIST PROVIDED HISTORY: for admission FINDINGS: The lungs are without acute focal process. There is no effusion or pneumothorax. The cardiomediastinal silhouette is stable. The osseous structures are stable. [facility] H[facility] 2-3 VW W PELVIS LEFTo n 02-09-2020 Intertrochanteric le ft hip fracture. [facility] [place], M[facility]pn Incoming Radiant Results From [employer] - 02/09/2020 3:31 PM EDT EXAMINATION: ONE [...] vascular calcifications. IMPRESSION: Intertrochanteric left hip fracture. [facility]: ONE XRA Y VIEW OF THE [...] within the acetabulum. There are vascular calcifications. [place] CBCon 02-02-2020 Erythrocyte distribution width (RBC) [Ratio] 14.1 % 11.8 - 14.4 % [place] Hematocrit (Bld) [Volume fraction] 44.3 % 36.3 - 47.1 % [place] Hemoglobin (Bld) [Mass/Vol] 13.4 g/dL 11.9 - 15.1 g/dL [place] MCH (RBC) [Entitic mass] 30.2 pg 25.2 - 33.5 pg [place] MCHC (RBC) [Mass/Vol] 30.2 g/dL 28.4 - 34.8 g/dL [place] MCV (RBC) [Entitic vol] 100.0 fL 82.6 - 102.9 fL [place] Platelet mean volume (Bld) [Entitic vol] 10.6 fL 8.1 - 13.5 fL [place] Platelets (Bld) [#/Vol] 231 10*3/uL [place] RBC (Bld) [#/Vol] 4.43 10*6/uL 3.95 - 5.1 1 m/uL [place] WBC (Bld) [#/Vol] 8.8 10*3/uL [place] WBC (Bld) [#/Vol] 0.0 10*3/uL 0.0 per 10 0 WBC [place] Creatinine, Random Urineon 0 02-02-2020 Creatinine, Ur 148.3 mg/dL 28 - 217 mg/dL [place] Magnesiumon 02-02-2020 Magnesium [Mass/Vol] 2.0 mg/dL 1.6 - 2 .6 mg/dL [place] Metabolic Panelon 02-02-2020 GFR/1.73 sq M predicted among non-blacks MDRD (S/P/Bld) [Vol rate/Area] [place] Comment on above: Stage 1: Some [...] body mass. Additional eGFR calculator available at: http://www.trueEX/multiple_crcl_2012.htm PTH, [place] 02-02-2020 Interpretation and review of laboratory results Abnormal [place] Pth Intact 103.6 pg/mL High 15 - 65 pg/mL [place] Comment on above: SAMPLES FROM PATIENT S ROUTINELY RECEIVING HIGH DOSE BIOTIN THERAPY MAY SHOW FALSELY DEPRESSED RESULTS. ADDITIONAL INFORMATION MAY BE REQUIRED FOR DIAGNOSIS. Protein, urine, randomon Protein (U) [Mass/Vol] 21 mg/dL [place] Comment on above: No normal range esta blished. Renal Function Panelon 02-01 Albumin [Mass/Vol] 4.6 g/dL 3.5 - 5.2 g/dL [place] Anion gap [Moles/Vol] 15 mmol/L 9 - 17 mmol/L [place] Bun/Cre Ratio 17 [place] Calcium [Mass/Vol] 9.9 mg/dL 8.6 - 10. 4 mg/dL [place] Chloride [Moles/Vol] 102 mmol/L 98 - 10 7 mmol/L [place] CO2 [Moles/Vol] 23 mmol/L 20 - 31 mmol/L [place] Creatinine [Mass/Vol] 1.69 mg/dL High 0.5 - 0.9 mg/dL [place] GFR 35 mL/min Low >60 [place] GFR Non- 29 mL/min Low >60 [place] Glucose [Mass/Vol] 120 mg/dL High 70 - 99 mg/dL [place] Interpretation and review of laboratory results Abnormal [place] Phosphate [Mass/Vol] 2.7 mg/dL 2.6 - 4 .5 mg/dL [place] Potassium [Moles/Vol] 4.0 mmol/L 3.7 - 5.3 mmol/L [place] Sodium [Moles/Vol] 140 mmol/L 135 - 144 mmol/L [place] Urea nitrogen [Mass/Vol] 28 mg/dL High 8 - 23 mg/dL [place] Uric Acidon 02-02-2020 Urate [Mass/Vol] 5.5 mg/dL 2.4 - 5.7 mg/dL [place] Urinalysis with Microscopico n 02-02-2020 Amorphous, UA NOT REPORTED None [place] Bacteria, UA 3+ Abnormal None [place] Bilirubin Urine Negative NEGATIVE [place] Casts UA NOT REPORTED /LPF [place] Color, UA YELLOW YELLOW [place] Crystals, UA NOT REPORTED None /HPF [place] Epithelial Cells UA 10 TO 20 [place] Glucose, Ur Negative NEGATIVE [place] Interpretation and review of laboratory results Abnormal [place] Ketones Ql (U) Negative NEGATIVE [place] Leukocyte esterase Test strip Ql (U) Negative NEGATIVE [place] Mucus, UA NOT REPORTED None [place] Nitrite, Urine Positive Abnormal NEGATIVE [place] Other Observations UA NOT REPORTED NOT REQ. M [place], [place] pH, UA 5.5 [place] Protein (U) [Mass/Vol] Negative NEGATIVE [place] RBC (U) [#/Vol] None [place] Renal Epithelial, UA NOT REPORTED 0 /HPF [place] Specific [place], UA 1.020 [place], [place] Trichomonas, UA NOT REPORTED None [place] Turbidity UA CLEAR CLEAR [place] Urinalysis Comments NOT REPORTED [place], [place] Urine Hgb Negative NEGATIVE [place] Urobilinogen, Urine Normal Normal [place] WBC, UA 2 TO 5 [place] Yeast, UA NOT REPORTED None [facility] [place] - [employer] [place], [place] CBCon 10-30-2019 Erythrocyte distribution width (RBC) [Ratio] 12.9 % 11.8 - 14.4 % [employer] Phone: Hematocrit (Bld) [Volume fraction] 42.8 % 36.3 - 47.1 % [employer] Phone: Hemoglobin (Bld) [Mass/Vol] 12.9 g/dL 11.9 - 15.1 g/dL [employer] Phone: MCH (RBC) [Entitic mass] 30.8 pg 25.2 - 33.5 pg [employer] Phone: MCHC (RBC) [Mass/Vol] 30.1 g/dL 28.4 - 34.8 g/dL [employer] Phone: MCV (RBC) [Entitic vol] 102.1 fL 82.6 - 102.9 fL [employer] Phone: Platelet mean volume (Bld) [Entitic vol] 11.0 fL 8.1 - 13.5 fL [employer] Phone: Platelets (Bld) [#/Vol] 210 10*3/uL [employer] Phone: RBC (Bld) [#/Vol] 4.19 10*6/uL 3.95 - 5.1 1 m/uL [employer] Phone: WBC (Bld) [#/Vol] 7.9 10*3/uL [employer] Phone: WBC (Bld) [#/Vol] 0.0 10*3/uL 0.0 per 10 0 WBC [employer] Phone: Creatinine, Random Urineon 0 10-30-2019 Creatinine, Ur 173.2 mg/dL 28 - 217 mg/dL [employer] Phone: Magnesiumon 10-30-2019 Magnesium [Mass/Vol] 2.2 mg/dL 1.6 - 2 .6 mg/dL [employer] Phone: Metabolic Panelon 10-30-2019 GFR/1.73 sq M predicted among non-blacks MDRD (S/P/Bld) [Vol rate/Area] [employer] Phone: Comment on above: Average GFR for 70 o r more years old: 75 mL/min/1.73sq m Chronic Kidney Disease: <60 mL/min/1.73sq m Kidney failure: <15 mL/min/1.73sq m eGFR calculated using average adult body mass. Additional eGFR calculator available at: http://www.trueEX/multiple_crcl_2012.htm Stage 1: Some kidney damage normal GFR Stage 2: Mild kidney damage GFR 60-89 Stage 3: Moderate kidney damage GFR 30-59 Stage 4: Severe kidney damage GFR 15-29 Stage 5: Severe kidney damage GFR <15 ESRD - chronic treatment by dialysis or transplant PTH, Int[place]on 10-30-2019 Interpretation and review of laboratory results Abnormal [employer] Phone: Pth Intact 121.6 pg/mL High 15 - 65 pg/mL [employer] Phone: Comment on above: SAMPLES FROM PATIENT S ROUTINELY RECEIVING HIGH DOSE BIOTIN THERAPY MAY SHOW FALSELY DEPRESSED RESULTS. ADDITIONAL INFORMATION MAY BE REQUIRED FOR DIAGNOSIS. Protein, urine, randomon Protein (U) [Mass/Vol] 22 mg/dL [facility]: Comment on above: No normal range esta blished. Renal Function Panelon 10-30 Albumin [Mass/Vol] 4.4 g/dL 3.5 - 5.2 g/dL [employer] Phone: Anion gap [Moles/Vol] 13 mmol/L 9 - 17 mmol/L [employer] Phone: Bun/Cre Ratio 17 [employer] Phone: Calcium [Mass/Vol] 9.6 mg/dL 8.6 - 10. 4 mg/dL [employer] Phone: Chloride [Moles/Vol] 105 mmol/L 98 - 10 7 mmol/L [employer] Phone: CO2 [Moles/Vol] 25 mmol/L 20 - 31 mmol/L [employer] Phone: Creatinine [Mass/Vol] 1.72 mg/dL High 0.5 - 0.9 mg/dL [employer] Phone: GFR 34 mL/min Low >60 [employer] Phone: GFR Non- 28 mL/min Low >60 [employer] Phone: Glucose [Mass/Vol] 122 mg/dL High 70 - 99 mg/dL [employer] Phone: Interpretation and review of laboratory results Abnormal [employer] Phone: Phosphate [Mass/Vol] 3.5 mg/dL 2.6 - 4 .5 mg/dL [employer] Phone: Potassium [Moles/Vol] 4.7 mmol/L 3.7 - 5.3 mmol/L [employer] Phone: Sodium [Moles/Vol] 143 mmol/L 135 - 144 mmol/L [employer] Phone: Urea nitrogen [Mass/Vol] 30 mg/dL High 8 - 23 mg/dL [employer] Phone: Uric Acidon 10-30-2019 Urate [Mass/Vol] 5.2 mg/dL 2.4 - 5.7 mg/dL [employer] Phone: Urinalysis with Microscopico n 10-30-2019 Amorphous, UA NOT REPORTED None [employer] Phone: Bacteria, UA 3+ Abnormal None [employer] Phone: Bilirubin Urine Negative NEGATIVE [employer] Work Phone: Casts UA NOT REPORTED /LPF [employer] Work Phone: Color, UA YELLOW YELLOW [employer] Work Phone: Crystals UA NOT REPORTED None /HPF [employer] Work Phone: Epithelial Cells UA 10 TO 20 [employer] Work Phone: Glucose, Ur Negative NEGATIVE [employer] Phone: Interpretation and review of laboratory results Abnormal [employer] Work Phone: Ketones Ql (U) Negative NEGATIVE [employer] Phone: Leukocyte esterase Test strip Ql (U) TRACE Abnormal NEGATIVE [employer] Phone: Mucus, UA NOT REPORTED None [employer] Work Phone: Nitrite, Urine Negative NEGATIVE [employer] Phone: Other Observations UA NOT REPORTED NOT REQ. [facility] Work Phone: pH, UA 5.0 [employer] Work Phone: [phone] Protein (U) [Mass/Vol] Negative NEGATIVE Me [employer] Work Phone: RBC (U) [#/Vol] 0 TO 2 [employer] Work Phone: Renal Epithelial, Urine NOT REPORTED 0 /HPF [employer] Work Phone: Specific [place], UA 1.020 [employer] Work Phone: Trichomonas, UA NOT REPORTED None [facility]: Turbidity UA SLIGHTLY CLOUDY Abnormal CLEAR [employer] Work Phone: Urinalysis Comments NOT REPORTED [facility] [employer] Work Phone: Urine Hgb Negative NEGATIVE [facility] Phone: Urobilinogen, Urine Normal Normal [facility] Phone: WBC, UA 5 TO 10 [facility] Phone: Yeast, UA NOT REPORTED None [employer] Phone: - [employer] Phone: CBCon 08-11-2019 Erythrocyte distribution width (RBC) [Ratio] 13.8 % 11.8 - 14.4 % [place] Hematocrit (Bld) [Volume fraction] 40.5 % 36.3 - 47.1 % [place] Hemoglobin (Bld) [Mass/Vol] 12.5 g/dL 11.9 - 15.1 g/dL [place] MCH (RBC) [Entitic mass] 30.9 pg 25.2 - 33.5 pg [place] MCHC (RBC) [Mass/Vol] 30.9 g/dL 28.4 - 34.8 g/dL [place] MCV (RBC) [Entitic vol] 100.2 fL 82.6 - 102.9 fL [place] Platelet mean volume (Bld) [Entitic vol] 10.5 fL 8.1 - 13.5 fL [place] Platelets (Bld) [#/Vol] 245 10*3/uL [place] RBC (Bld) [#/Vol] 4.04 10*6/uL 3.95 - 5.1 1 m/uL [place] WBC (Bld) [#/Vol] 7.1 10*3/uL [place] WBC (Bld) [#/Vol] 0.0 10*3/uL 0.0 per 10 0 WBC [place] Creatinine Clearanceon 08-11 Creatinine [Mass/Vol] 54.7 mg/dL 28 - 2 17 mg/dL [place] Creatinine [Mass/Vol] 1.8 mg/dL High 0.5 - 0.9 mg/dL [place] Creatinine Clearance 25.8 Low [place], [place] Interpretation and review of laboratory results Abnormal [place], [place] Length Of Collection 24 h [place], [place] Patient Height 155 cm [place] Volume 1175 mL [place] Creatinine, Random Urineon 10-11-2018 Creatinine, Ur 18.5 mg/dL Low 28 - 217 mg/dL [place] Interpretation and review of laboratory results Abnormal [place] Magnesiumon 08-11-2019 Magnesium [Mass/Vol] 1.9 mg/dL 1.6 - 2 .6 mg/dL [place] Metabolic Panelon 08-11-2019 GFR/1.73 sq M predicted among non-blacks MDRD (S/P/Bld) [Vol rate/Area] [place] Comment on above: Average GFR for 70 o r more years old: 75 mL/min/1.73sq m Chronic Kidney Disease: <60 mL/min/1.73sq m Kidney failure: <15 mL/min/1.73sq m eGFR calculated using average adult body mass. Additional eGFR calculator available at: http://www.trueEX/multiple_crcl_2012.htm Stage 1: Some kidney damage normal GFR Stage 2: Mild kidney damage GFR 60-89 Stage 3: Moderate kidney damage GFR 30-59 Stage 4: Severe kidney damage GFR 15-29 Stage 5: Severe kidney damage GFR <15 ESRD - chronic treatment by dialysis or transplant PTH, [place] 08-11-2019 Interpretation and review of laboratory results Abnormal [place] Pth Intact 99.15 pg/mL High 15 - 65 pg/mL [place] Comment on above: SAMPLES FROM PATIENT S ROUTINELY RECEIVING HIGH DOSE BIOTIN THERAPY MAY SHOW FALSELY DEPRESSED RESULTS. ADDITIONAL INFORMATION MAY BE REQUIRED FOR DIAGNOSIS. Protein, urine, randomon Protein (U) [Mass/Vol] mg/dL mg/dL [place] Comment on above: No normal range esta blished. Protein, urine, timedon 07-28 Hours Collected 24 h [place] Protein (U) [Mass/Vol] 5 mg/dL [place], [place] Volume 1175 mL [place] Comment on above: CORRECTED ON 08/11 A T 1745: PREVIOUSLY REPORTED 1175 ML Renal Function Panelon 08-11 Albumin [Mass/Vol] 4.3 g/dL 3.5 - 5.2 g/dL [place] Anion gap [Moles/Vol] 15 mmol/L 9 - 17 mmol/L [place] Bun/Cre Ratio 16 [place] Calcium [Mass/Vol] 9.2 mg/dL 8.6 - 10. 4 mg/dL [place] Chloride [Moles/Vol] 100 mmol/L 98 - 10 7 mmol/L [place] CO2 [Moles/Vol] 22 mmol/L 20 - 31 mmol/L [place] Creatinine [Mass/Vol] 1.8 mg/dL High 0.5 - 0.9 mg/dL [place] GFR 33 mL/min Low >60 [place] GFR Non- 27 mL/min Low >60 [place] Glucose [Mass/Vol] 110 mg/dL High 70 - 99 mg/dL [place] Interpretation and review of laboratory results Abnormal [place] Phosphate [Mass/Vol] 2.8 mg/dL 2.6 - 4 .5 mg/dL [place] Potassium [Moles/Vol] 4.1 mmol/L 3.7 - 5.3 mmol/L [place] Sodium [Moles/Vol] 137 mmol/L 135 - 144 mmol/L [place] Urea nitrogen [Mass/Vol] 29 mg/dL High 8 - 23 mg/dL [place] TSH without Reflexon 019 TSH Qn 3.22 m[IU]/L [place] US RENAL COMPLETEon 08-11-20 19 1. [...] CT for confirmation of the above findings. [place] EXAMINATION: RETROPERITONEAL ULTRASOUND OF THE KIDNEYS AND URINARY BLADDER 08/11/2019 COMPARISON: None HISTORY: ORDERING SYSTEM PROVIDED HISTORY: Chronic kidney disease, stage IV (severe) ([facility]) FINDINGS: Kidneys: Suboptimal evaluation due to patient [...] the bladder. No significant post void residual. [place], Mh[facility] Incoming Radiant Results From [employer] - 08/11/2019 12:53 PM EST EXAMINATION: RETROPERITONEAL ULTRASOUND OF THE KIDNEYS AND URINARY BLADDER 08/11/2019 COMPARISON: None HISTORY: ORDERING SYSTEM PROVIDED HISTORY: Chronic kidney disease, stage IV (severe) ([facility]) FINDINGS: Kidneys: Suboptimal evaluation due to patient [...] CT for confirmation of the above findings. [place] Uric Acidon 08-11-2019 Urate [Mass/Vol] 5.4 mg/dL 2.4 - 5.7 mg/dL [place] Urinalysison 08-11-2019 Protein (U) [Mass/Vol] NOT REPORTED mg/X h [place] Urinalysis with Microscopico n 08-11-2019 Amorphous, UA NOT REPORTED None [place] Bacteria, UA TRACE Abnormal None [place] Bilirubin Urine Negative NEGATIVE [place] Casts UA NOT REPORTED /LPF [place] Color, UA YELLOW YELLOW [place] Crystals UA NOT REPORTED None /HPF [place] Epithelial Cells UA 0 TO 2 [place] Glucose, Ur Negative NEGATIVE [place] Interpretation and review of laboratory results Abnormal [place] Ketones Ql (U) Negative NEGATIVE [place] Leukocyte esterase Test strip Ql (U) Negative NEGATIVE [place] Mucus, UA NOT REPORTED None [place] Nitrite, Urine Negative NEGATIVE [place] Other Observations UA NOT REPORTED NOT REQ. M [place], [place] pH, UA 5.5 [place] Protein (U) [Mass/Vol] Negative NEGATIVE [place] RBC (U) [#/Vol] 0 TO 2 [place] Renal Epithelial, Urine NOT REPORTED 0 /HPF [place] Specific [place], UA <1.005 Low [place] Trichomonas, UA NOT REPORTED None [place] Turbidity UA CLEAR CLEAR [place] Urinalysis Comments NOT REPORTED [place], [place] Urine Hgb Negative NEGATIVE [place] Urobilinogen, Urine Normal Normal [place] WBC, UA 0 TO 2 [place] Yeast, UA NOT REPORTED None [place] Vitamin B12 & Folateon 08-11 Cobalamin (Vitamin B12) [Mass/Vol] 391 pg/mL 232 - 1245 pg/mL [place] Folate 7.7 ng/mL >4.8 [place] Vital Signs Date Time Vital Sign Value Performing Clinician Facility 09-09-2023 13:00-0500 Diastolic blood pressure 88 mm[Hg] Brina Cordero Other [facility] [employer] Other 09-09-2023 13:00-0500 Respiratory rate 12 /min Brina Cordero Other [facility] [employer] Other 09-09-2023 13:00-0500 Systolic blood pressure 132 mm[Hg] Brina Cordero Other [facility] [employer] Other 08-31-2023 22:45-0500 Diastolic blood pressure 94 mm[Hg] MD Destiny Irwin Work Phone: [facility] 08-31-2023 22:45-0500 Heart rate 89 /min MD Destiny Irwin Work Phone: [facility] 08-31-2023 22:45-0500 Respiratory rate 18 /min MD Destiny Irwin Work Phone: [facility] 08-31-2023 22:45-0500 SaO2% (BldA) [Mass fraction] 97 % MD Destiny Irwin Work Phone: [facility] 08-31-2023 22:45-0500 Systolic blood pressure 165 mm[Hg] MD Destiny Irwin Work Phone: [facility] 08-31-2023 18:28-0500 Body height 154.94 cm MD Destiny Irwin Work Phone: [facility] 08-31-2023 18:28-0500 Body weight 59.87 kg MD Destiny Irwin Work Phone: [facility] 08-31-2023 18:27-0500 Body temperature 98.2 [degF] MD Destiyn Irwin Work Phone: [facility] 06-11-2023 13:00-0400 Diastolic blood pressure 72 mm[Hg] Brina Cordero Other [employer] Other 06-11-2023 13:00-0400 Respiratory rate 12 /min Brina Roxie Other [employer] Other 06-11-2023 13:00-0400 Systolic blood pressure 178 mm[Hg] Brina Roxie Other [employer] Other 09-12-2020 11:04-0500 BP Diastolic 63 mm[Hg] [facility] [place] [facility] [place] Comment on above: 2nd reading 09-12-2020 11:04-0500 BP Systolic 139 mm[Hg] [facility] [place] Comment on above: 2nd reading 09-12-2020 11:04-0500 Pulse (Heart Rate) 65 /min [facility] [place] 09-12-2020 11:02-0500 Body Temperature 96.1 [degF] [facility] [place] 09-12-2020 11:02-0500 Respiratory Rate 20 /min [facility] [place] 08-15-2020 10:48-0500 Body Temperature 96.69 [degF] [facility] [place] 08-15-2020 10:48-0500 BP Diastolic 90 mm[Hg] [facility] [place] [facility] [place] 08-15-2020 10:48-0500 BP Systolic 147 mm[Hg] [facility] [place] [facility] [place] 08-15-2020 10:48-0500 Pulse (Heart Rate) 69 /min [facility] [place] 08-15-2020 10:48-0500 Respiratory Rate 22 /min [facility] [place] 07-18-2020 10:55-0400 Body Temperature 97.81 [degF] [facility] [place] 07-18-2020 10:55-0400 BP Diastolic 71 mm[Hg] [facility] [place] 07-18-2020 10:55-0400 BP Systolic 133 mm[Hg] [facility] [place] 07-18-2020 10:55-0400 Pulse (Heart Rate) 79 /min [facility] [place] 07-18-2020 10:55-0400 Respiratory Rate 16 /min [facility] [place] 06-27-2020 11:04-0400 BP Diastolic 71 mm[Hg] [facility] [place] 06-27-2020 11:04-0400 BP Systolic 123 mm[Hg] [facility] [place] 06-27-2020 11:04-0400 Pulse (Heart Rate) 84 /min [facility] [place] 06-27-2020 11:04-0400 Respiratory Rate 22 /min [facility] [place] 05-30-2020 13:10-0400 Body Temperature 97.59 [degF] [facility] [place] 05-30-2020 13:10-0400 BP Diastolic 86 mm[Hg] [facility] [place] 05-30-2020 13:10-0400 BP Systolic 136 mm[Hg] [facility] [place] 05-30-2020 13:10-0400 Pulse (Heart Rate) 108 /min [facility] [place] 05-30-2020 13:10-0400 Respiratory Rate 20 /min [facility] [place] 05-15-2020 14:09-0400 Pulse Oximetry 97 % [facility] [place] 05-15-2020 08:52-0400 Body Temperature 98.2 [degF] [facility] [place] 05-15-2020 08:52-0400 BP Diastolic 58 mm[Hg] [facility] [place] 05-15-2020 08:52-0400 BP Systolic 118 mm[Hg] [facility] [place] 05-15-2020 08:52-0400 Pulse (Heart Rate) 68 /min [facility] [place] 05-15-2020 08:52-0400 Respiratory Rate 16 /min [facility] 05-10-2020 10:40-0400 BMI (Body Mass Index) 27.21 kg/m2 [facility] 05-10-2020 10:40-0400 Body weight 69.67 kg Chele Lagos [facility] , [place] 05-10-2020 10:40-0400 Height 160 cm Chele Lagos [facility] , [place] 04-06-2020 07:53-0400 Body Temperature 97 [degF] Kian Simon [facility] [place] 04-06-2020 07:53-0400 BP Diastolic 80 mm[Hg] [facility] [place] 04-06-2020 07:53-0400 BP Systolic 120 mm[Hg] [facility] [place] 04-06-2020 07:53-0400 Pulse (Heart Rate) 66 /min Kian Simon [facility], [place] 04-06-2020 07:53-0400 Pulse Oximetry 96 % [facility] [place] 04-06-2020 07:53-0400 Respiratory Rate 16 /min Kian Ernst [facility], [place] 04-06-2020 04:30-0400 BMI (Body Mass Index) 30.86 kg/m2 Kian Ernst [facility], [place] 04-06-2020 04:30-0400 Body weight 71.67 kg Kian Ernst [facility], [place] 04-03-2020 07:32-0400 Height 152.4 cm Kian Ernst [facility] 03-23-2020 17:22-0400 BP Diastolic 82 mm[Hg] [facility] [place] 03-23-2020 17:22-0400 BP Systolic 137 mm[Hg] [facility] [place] 03-23-2020 17:22-0400 Pulse Oximetry 99 % [facility] [place] 03-23-2020 15:09-0400 Body Temperature 98.4 [degF] [facility] [place] 03-23-2020 15:09-0400 Pulse (Heart Rate) 76 /min [facility] 03-23-2020 15:07-0400 BMI (Body Mass Index) 31.05 kg/m2 Forest Simon [place] 03-23-2020 15:07-0400 Body weight 72.12 kg Forest Baer [place] 03-23-2020 15:07-0400 Height 152.4 cm Forest Baer [place] 03-23-2020 15:07-0400 Respiratory Rate 18 /min [facility] 02-09-2020 15:52-0400 BP Diastolic 50 mm[Hg] [place], [place] 02-09-2020 15:52-0400 BP Systolic 136 mm[Hg] [place] 02-09-2020 15:52-0400 Pulse (Heart Rate) 54 /min [place] 02-09-2020 15:52-0400 Pulse Oximetry 98 % [place], [place] 02-09-2020 15:52-0400 Respiratory Rate 18 /min [facility] [place] 02-09-2020 11:10-0400 Body Temperature 98.6 [degF] [facility] [place] 02-09-2020 11:10-0400 Body weight 68.04 kg [place], [place] 08-11-2019 15:08-0500 Body weight 67 kg [place] Encounters Encounter Date Encounter Type Care Provider Facility Start: 09-23-2023 Encounter for other preprocedural examination BRINA CORDERO [facility] Start: 09-23-2023 End: 09-23-2023 ambulatory BRINA CORDERO Facility:[facility] Start: 09-23-2023 End: 09-24-2023 ambulatory BRINA CORDERO Facility:[facility] Start: 09-23-2023 End: 09-24-2023 ambulatory BRINA CORDERO Facility:[facility] Start: 09-17-2023 ambulatory BRINA CORDERO Facility :[facility] Start: 09-09-2023 End: 09-09-2023 ambulatory Brina Cordero Other [employer] Other Start: 09-09-2023 Transitional care janina singh srvc 14 day discharge Brina Mclean Start: 09-08-2023 Orders Only Ricco Garland MD Work Phone: Urology Comment on above: Hydronephrosis with urinary obstruction due to renal calculus (Primary Dx) Start: 09-07-2023 End: 09-08-2023 ambulatory RICCO GARLAND Facility:[facility] Start: 09-06-2023 ambulatory Harsh Careyi ty:OSWALDO Galvan Start: 09-03-2023 End: 09-04-2023 ambulatory Justino Renuka [employer] Other Start: 09-03-2023 Telephone encounter Brina Cordero [facility] Start: 09-01-2023 End: 09-03-2023 Evaluation and management of inpatient Brina Cordero Facility:[facility] Start: 08-31-2023 Evaluation and manag ement of inpatient MD Destiny Irwin Work Phone: [facility] Work Phone: Start: 08-31-2023 End: 08-31-2023 ambulatory Brina Cordero Other [employer] Other Start: 08-31-2023 Telephone encounter Brina Cordero [facility] Start: 08-30-2023 End: 08-30-2023 ambulatory Brina Cordero Other [employer] Other Start: 08-30-2023 Telephone encounter Brina Cordero [facility] Start: 08-26-2023 End: 08-27-2023 ambulatory Harsh CLAYTON [employer] Other Start: 08-26-2023 Telephone encounter Brina Cordero [facility] Start: 08-24-2023 End: 08-24-2023 ambulatory Brina Cordero Other [employer] Other Start: 08-24-2023 Telephone encounter Brina Cordero [facility] Start: 08-23-2023 End: 08-23-2023 ambulatory Brina Cordero Other [employer] Other Start: 08-23-2023 Telephone encounter Brina Cordero [facility] Start: 08-03-2023 End: 08-03-2023 ambulatory Brina Cordero Other [employer] Other Start: 08-03-2023 Telephone encounter Brina Cordero [facility] Start: 08-02-2023 End: 08-02-2023 ambulatory Brina Cordero Other [employer] Other Start: 08-02-2023 Telephone encounter Brina Cordero [facility] Start: 07-21-2023 End: 07-21-2023 ambulatory Brina Cordero Other [employer] Other Start: 07-21-2023 Telephone encounter Brina Cordero [facility] Start: 07-19-2023 End: 07-19-2023 ambulatory Brina Cordero Other [employer] Other Start: 07-19-2023 Telephone encounter Brina Cordero [facility] Start: 07-05-2023 End: 07-05-2023 ambulatory Brina Cordero Other [employer] Other Start: 07-05-2023 Telephone encounter Brina Cordero [facility] Start: 06-11-2023 End: 06-11-2023 ambulatory Brina Cordero Other [employer] Other Start: 06-11-2023 Patient encounter procedure Brina Cordero [facility] Start: 05-26-2023 (OK) [facility] Start: 05-26-2023 End: 05-26-2023 ambulatory Brina Cordero Other [employer] Other Start: 10-14-2021 End: 10-15-2021 ambulatory JUST[facility] Start: 10-03-2021 End: 10-04-2021 ambulatory JUSTINO Simon [facility] Start: 06-24-2021 End: 06-25-2021 ambulatory JUSTINO Simon [facility] Start: 06-24-2021 End: 06-24-2021 Subsequent hospital visit by physician Justino Dhaliwal DO Work Phone: [facility] Start: 04-12-2021 End: 04-12-[address] ABHILASH HERNANDEZ Facility: Start: 02-20-2021 End: 02-21-2021 ambulatory JUSTINO Simon [facility] Start: 02-20-2021 End: 02-20-2021 Subsequent hospital visit by physician Justino Dhaliwal DO Work Phone: [facility] Start: 12-05-2020 End: 12-06-2020 ambulatory DILAN Phillipsy [facility] Start: 12-05-2020 End: 12-05-2020 Subsequent [facility] Start: 11-07-2020 End: 11-08-2020 ambulatory JUSTINO Simon [facility] Start: 11-07-2020 End: 11-07-2020 Subsequent hospital visit by physician [facility] Start: 11-06-2020 End: 11-07-2020 ambulatory JUSTINO Simon [facility] Start: 11-06-2020 End: 11-06-2020 Subsequent hospital visit by physician Justino Dhaliwal [facility] Start: 10-30-2020 End: 10-31-2020 ambulatory JUSTINO Simon [facility] Start: 10-30-2020 End: 10-30-2020 Subsequent hospital visit by physician Justino Dhaliwal [facility] Start: 10-23-2020 End: 10-24-2020 [facility] Start: 10-23-2020 End: 10-23-2020 Subsequent hospital visit by physician [facility] Start: 09-26-2020 End: 09-26-2020 Subsequent hospital visit by physician [facility] Start: 09-25-2020 End: 09-25-2020 Subsequent hospital visit by physician Justino [facility]ail[facility] Start: 09-18-2020 End: 09-18-2020 Subsequent hospital visit by physician Justino Dhaliwal [facility] Start: 09-12-2020 End: 09-12-2020 Subsequent hospital visit by physician Glenn Martínez Work Phone: [facility] Comment on above: Decubitus ulcer of h eel, left, unstageable (HCC) (Primary Dx) Start: 09-11-2020 End: 09-11-2020 Subsequent hospital visit by physician Justino [facility]haliwal [facility] Start: 09-06-2020 End: 09-06-2020 Subsequent hospital visit by physician Justino [facility]haliwal [facility] Start: 09-05-2020 End: 09-05-2020 Subsequent hospital visit by physician Justino [facility]haliwal [facility] Start: 08-28-2020 End: 08-28-2020 Subsequent hospital visit by physician Justino [facility]haliwal [facility] Start: 08-27-2020 End: 08-27-2020 Subsequent hospital visit by physician Justino [facility]haliwal [facility] Start: 08-21-2020 End: 08-21-2020 Subsequent hospital visit by physician Justino [facility]haliwal [facility] Start: 08-16-2020 End: 08-16-2020 Subsequent hospital visit by physician Justino [facility]haliwal [facility] Start: 08-15-2020 End: 08-15-2020 Subsequent hospital visit by physician Glenn Martínez Work Phone: [facility] Comment on above: Decubitus ulcer of h eel, left, unstageable (HCC) (Primary Dx) Start: 08-09-2020 End: 08-09-2020 Subsequent hospital visit by physician Just[facility]hal[facility]wal [facility] Start: 07-18-2020 End: 07-18-2020 Subsequent hospital visit by physician Glenn Martínez Work Phone: [facility] Comment on above: Decubitus ulcer of h eel, left, unstageable (HCC) (Primary Dx); Pressure ulcer of left calf, stage 3 (HCC) Start: 07-18-2020 End: 07-18-2020 Subsequent hospital visit by physician Justino Dhaliwal [facility] Start: 07-09-2020 End: 07-09-2020 Subsequent hospital visit by physician Justino Dhaliwal [facility] Start: 07-01-2020 End: 07-01-2020 Subsequent hospital visit by physician Justino Dhaliwal [facility] Start: 06-27-2020 End: 06-27-2020 Subsequent hospital visit by physician Glenn Martínez Work Phone: [facility] Comment on above: Decubitus ulcer of h eel, left, unstageable (HCC) (Primary Dx); Pressure injury of left heel, stage 3 (HCC) Start: 06-25-2020 End: 06-25-2020 Subsequent hospital visit by physician Justino Dhaliwal [facility] Start: 06-24-2020 End: 06-24-2020 Subsequent hospital visit by physician Justino Dhaliwal [facility] Start: 06-19-2020 End: 06-19-2020 Subsequent hospital visit by physician Justino Dhaliwal [facility] Start: 06-19-2020 End: 06-19-2020 Subsequent hospital visit by physician Justino Dhaliwal [facility] Start: 06-18-2020 End: 06-18-2020 Subsequent hospital visit by physician Justino Dhaliwal [facility] Start: 06-13-2020 End: 06-13-2020 Subsequent hospital visit by [facility] Drawing Room [facility] Comment on above: Arrived Decubitus ulcer of h eel, left, unstageable (HCC) (Primary Dx) Start: 06-12-2020 End: 06-12-2020 Subsequent hospital visit by physician Justino Dhaliwal [facility] Start: 06-06-2020 End: 06-06-2020 Subsequent hospital visit by physician Justino Dhaliwal [facility] Start: 05-30-2020 End: 05-30-2020 Subsequent hospital visit by physician Glenn Martínez Work Phone: [facility] Start: 05-30-2020 End: 05-30-2020 Subsequent hospital visit by physician Justino Dhaliwal [facility] Start: 05-23-2020 End: 05-23-2020 Subsequent hospital visit by physician Justino Dhaliwal [facility] Start: 05-23-2020 End: 05-23-2020 Subsequent hospital visit by physician Justino Dhaliwal [facility] Start: 05-17-2020 End: 05-17-2020 Subsequent hospital visit by physician Justino Dhaliwal [facility] Start: 05-10-2020 End: 05-15-2020 Evaluation and management of inpatient CHELE LAGOS 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 Start: 05-08-2020 End: 05-08-2020 Subsequent hospital visit by physician Justino Dhaliwal [facility] Start: 05-03-2020 End: 05-03-2020 Subsequent hospital visit by physician Justino Dhaliwal [facility] Start: 04-10-2020 End: 04-10-2020 Subsequent hospital visit by physician Justino Dhaliwal [facility] Start: 04-02-2020 End: 04-06-2020 Evaluation and management of inpatient Kian Cha Klever [facility] Comment on above: General weakness (Pr imary Dx); Hypokalemia; Malaise; Cellulitis of right upper extremity Start: 03-25-2020 End: 03-25-2020 Subsequent hospital visit by physician Justino Dhaliwal [facility] Start: 03-23-2020 End: 03-23-2020 Emergency department patient visit Forest Baer Work Phone: [facility] Comment on above: Pain of left hip bridger nt (Primary Dx) Start: 03-12-2020 End: 03-12-2020 Subsequent hospital visit by physician Justino Dhaliwal [facility] Start: 02-27-2020 End: 02-27-2020 Subsequent hospital visit by physician Justino Dhaliwal [facility] Start: 02-20-2020 End: 02-20-2020 Subsequent hospital visit by physician Justino Dhaliwal [facility] Start: 02-09-2020 End: 02-15-2020 Evaluation and management of inpatient Carlos Carlin Facility:[facility] Start: 02-09-2020 End: 02-09-2020 Emergency department patient visit Mariusz Rodriguez Work Phone: [facility] Comment on above: Closed displaced int ertrochanteric fracture of left femur, initial encounter ([facility]) (Primary Dx) Start: 02-02-2020 End: 02-02-2020 Subsequent hospital visit by physician [facility] Drawing Room [facility] Comment on above: Arrived Start: 10-30-2019 End: 10-30-2019 Subsequent hospital visit by physician Justino Dhaliwal [facility] Start: 08-11-2019 End: 08-13-2019 Subsequent hospital visit by physician [facility] Drawing Room [facility] Comment on above: Arrived Chronic kidney disea se, stage IV (severe) ([facility]) Procedures Date Procedure Procedure Detail Performing Clinician Start: 09-23-2023 Antibody screen BRINA CORDERO Comment on above: Order Comment: Speci men Type: BLOOD SPECIMEN Ordering Facility: [facility] Address: [address] [place] [address] Performed By: #### T [id number] #### [facility] CLIA [id number] [place] [address] [place] Start: 08-31-2023 Urine culture MD Destiny Irwin Work Phone: Start: 12-05-2020 Blood count complete auto&auto difrntl wbc [employer]raymond [employer] Work Phone: Start: 12-05-2020 C-reactive protein Sana jeffrey LouisGongpingjia Work Phone: Start: 12-05-2020 Assay of blood/uric acid [employer] Work Phone: Start: 12-05-2020 Assay of magnesium [place] [facility] [facility] [employer] Work Phone: Start: 12-05-2020 Assay of parathormone B enahili U [employer] Work Phone: Start: 12-05-2020 Renal function panel Be nahili U [employer] Work Phone: Start: 11-07-2020 Blood count complete auto&auto difrntl wbc [employer] Work Phone: Start: 11-07-2020 C-reactive protein Sana [...] Start: 05-14-2020 Blood count hemoglobin Katarina Cha [employer] Work Phone: Start: 05-14-2020 TRANSFUSE RED BLOOD CELLS CHELE LAGOS Start: 05-14-2020 Antibody screen Chele Lagos Comment on above: Performed at [facility] [address] [place] [address] Start: 05-14-2020 PREPARE RBC (CROSSMATCH) CHELE LAGOS [...] foot complete minimum 3 views Katarina Cha [employer] Work Phone: Start: 05-14-2020 Anion gap [Moles/Vol] [...] Phone: Start: 05-12-2020 Anion gap [Moles/Vol] [employer] Work Phone: Start: 05-12-2020 Basic metabolic pane l calcium total Sylvia [employer] Work Phone: Start: 05-12-2020 Blood count complete auto&auto difrntl wbc Sylvia [employer] Work Phone: Start: 05-12-2020 GLOMERULAR FILTRATIO N RATE, ESTIMATED Sylvia [employer] Work Phone: Start: 05-12-2020 STRAIGHT CATH CHELE [...] count complete auto&auto difrntl wbc Sylvia [employer] Work Phone: Start: 05-11-2020 Anion gap [Moles/Vol] [employer] Work Phone: Start: 05-11-2020 Basic metabolic pane l calcium total Sylvia [employer] Work Phone: Start: 05-11-2020 GLOMERULAR FILTRATIO N [...] Chele Lagos Comment on above: Performed at [facility] [address] [id number] Start: 05-10-2020 Blood typing serologic abo Chele [...] [employer] Start: 10-30-2019 Assay of magnesium [place] [facility] [employer] Start: 10-30-2019 Assay of [...] Author Start: 10-23-2023 Diabetes Screening Diabetes Screenin [facility] Start: 08-31-2023 End: 08-31-2023 [facility] Start: 08-31-2023 Plain chest X-ray XR chest 2V* [facility] Start: 08-31-2023 XR Chest [address] [facility] Start: 08-31-2023 CT Abdomen and Pelvi s WO contrast [facility] Start: 08-31-2023 CT of abdomen and pelvis without contrast CT abdomen pelvis wo [facility] Start: 08-31-2023 CT of head without contrast CT head/brain wo [facility] Start: 08-31-2023 CT Unspecified body region WO contrast [facility] Start: 08-31-2023 [facility] Start: 05-28-2023 Influenza vaccination Influenza Vacc ine (#1) [facility] Start: 09-27-2022 Advance Directive Discussion Advance Directive Discussion [facility] Start: 09-27-2022 Depression Assessment Depression Ass essment [facility] Start: 12-05-2021 Creatinine measurement Creatinine mo nitoring [employer] Phone: Start: 12-05-2021 Potassium [facility] Start: 10-30-2021 Lipid panel Lipid screen [facility] Work Phone: Start: 10-23-2021 Creatinine measurement Creatinine mo [facility] [place] Start: 10-23-2021 Potassium monitoring Potassium monit [facility] Start: 09-26-2021 Creatinine measurement Creatinine mo [facility] [place] Start: 09-26-2021 Potassium monitoring Potassium monit [facility] Start: 09-18-2021 Creatinine measurement Creatinine mo [facility] [place] Start: 09-18-2021 Potassium monitoring Potassium monit [facility] Start: 09-11-2021 Creatinine measurement Creatinine mo [facility] Start: 09-11-2021 Potassium monitoring Potassium monit [facility] Start: 06-19-2021 Lipid panel Lipid screen [place] Start: 05-28-2021 Influenza vaccination [facility] Work Phone: Start: 04-05-2021 Creatinine measurement Creatinine mo [facility] [place] Start: 04-05-2021 Potassium monitoring Potassium monit [facility] Start: 03-23-2021 Creatinine measurement Creatinine mo [facility] [place] Start: 03-23-2021 Potassium monitoring Potassium monit [facility] Start: 03-12-2021 Creatinine measurement Creatinine mo [place], [place] Start: 03-12-2021 Potassium monitoring Potassium monit [facility] Start: 02-26-2021 Creatinine measurement Creatinine mo [facility] Start: 02-26-2021 Potassium monitoring Potassium monit [facility] Start: 02-19-2021 Creatinine measurement Creatinine mo [facility] Start: 02-19-2021 Potassium monitoring Potassium monit [facility] Start: 02-08-2021 Creatinine measurement Creatinine mo [place], [place] Start: 02-08-2021 Potassium monitoring Potassium monit [facility] Start: 02-01-2021 Creatinine measurement Creatinine mo [place] Start: 02-01-2021 Potassium monitoring Potassium monit [place], [place] Start: 10-30-2020 Creatinine measurement Creatinine mo nitoring [place], [place] Start: 10-30-2020 Potassium monitoring Potassium monit [place] Start: 09-12-2020 End: 09-12-2020 Appointment 09/12/2020 Appointment Wound Glenn Camargo, DPM [address] [address] [phone] [facility] Start: 08-15-2020 End: 08-15-2020 Appointment 08/15/2020 Appointment Wound Glenn Camargo, DPM [address] [place] [address] [phone] [facility] Start: 08-11-2020 Creatinine [place] Start: 08-11-2020 Potassium monitoring Potassium monit [place] Start: 07-18-2020 End: 07-18-2020 Appointment 07/18/2020 Appointment Wound Glenn Camargo, DPM [address] [place] [address] [phone] [facility] Start: 06-27-2020 End: 06-27-2020 Appointment 06/27/2020 Appointment Wound Glenn Camargo, DPM [address] [place] [address] [phone] [facility] Start: 06-13-2020 End: 06-13-2020 Appointment 06/13/2020 Appointment Wound OstGlenn Gonzalez, DPM [address] [place] [address] [facility] Start: 05-28-2020 Influenza vaccination [place], [place] Start: 05-28-2019 Influenza vaccination Flu vaccine (# 1) [place] Start: 03-17-2019 Annual Wellness Visi t (AWV) Annual Wellness Visit (AWV) [place] Start: 03-08-2019 Creatinine monitoring Creatinine mon itoring [place] Start: 03-08-2019 Lipid panel Lipid screen [place] Start: 03-08-2019 Lipid screen Lipid screen [place] Start: 03-08-2019 Potassium monitoring Potassium monit oring [place] Start: 2002 DEXA (modify frequen cy per FRAX score) DEXA (modify frequency per FRAX score) [place] Start: 2002 Pneumococcal 65+ yea rs Vaccine (1 of 1 - PPSV23) Pneumococcal 65+ years Vaccine (1 of 1 - PPSV23) [place] Start: 2002 Pneumococcal 65+ yrs at Risk Vaccine (1 of 2 - PCV13) Pneumococcal 65+ yrs at Risk Vaccine (1 of 2 - PCV13) [place] Start: 2002 Pneumococcal Vaccine : 65+ (1 - PCV) Pneumococcal Vaccine: 65+ (1 - PCV) [facility] Start: 2002 Screening for osteoporosis Bone Density Screening [facility] Start: 1997 RSV Vaccine (1 - 1-d ose 60+ series) RSV Vaccine (1 - 1-dose 60+ series) [facility] Start: 1992 Screening for osteoporosis DEXA (modify frequency per FRAX score) [place] Start: 1987 Shingles Vaccine (1 of 2) Shingles Vaccine (1 of 2) [place] Start: 1987 Shingrix Vaccine (1 of 2) Shingrix Vaccine (1 of 2) [facility] Start: 1956 DTaP/Tdap/Td vaccine (1 - Tdap) DTaP/Tdap/Td vaccine (1 - Tdap) [place] Start: 1956 Urine microalbumin profile DTaP,Tdap,Td Vaccine (1 - Tdap) [facility] Start: 1953 COVID-19 Vaccine (1 of 2) COVID-19 Vaccine (1 of 2) [place] Start: 1949 COVID-19 Vaccine (1) COVID-19 Vaccin e (1) [facility] [place] Work Phone: Start: 1948 DTaP/Tdap/Td vaccine (1 - Tdap) DTaP/Tdap/Td vaccine (1 - Tdap) [place] Start: 02-07-1938 Covid-19 Vaccine (#1) Covid-19 Vacci ne (#1) [facility] Bacteria identified in Blood by Culture [facility] Bacteria identified in Urine by Culture [facility] CBC auto differential CBC auto d ifferential Lab Routine Daily until discontinued starting 04/05/2020, 2 completed [place] Comment on above: Daily until disconti nued starting 04/05/2020, 2 completed Comprehensive metabo lic 2000 panel Comprehensive metabolic panel Lab Routine Daily until discontinued starting 04/05/2020, 2 completed [place] Comment on above: Daily until disconti nued starting 04/05/2020, 2 completed Culture, Anaerobic a nd Aerobic Culture, Anaerobic and Aerobic Microbiology Routine 05/10/2020 1:31 PM EDT [place] Culture, Blood 1 [place], [place] End: 04-10-2020 Culture, Urine Culture, Urine Microbiology Routine Once for 1 Occurrences starting 04/10/2020 until 04/10/2020 [place] Comment on above: Once for 1 Occurrenc es starting 04/10/2020 until 04/10/2020 Culture, Urine [place] End: 05-08-2020 Culture, Urine Culture, Urine Microbiology Routine Once for 1 Occurrences starting 05/08/2020 until 05/08/2020 [place] Comment on above: Once for 1 Occurrenc es starting 05/08/2020 until 05/08/2020 End: 08-09-2020 Culture, Urine Culture, Urine Microbiology Routine Once for 1 Occurrences starting 08/09/2020 until 08/09/2020 [place] Comment on above: Once for 1 Occurrenc es starting 08/09/2020 until 08/09/2020 End: 08-27-2020 Culture, Urine Culture, Urine Microbiology Routine Once for 1 Occurrences starting 08/27/2020 until 08/27/2020 [place] Comment on above: Once for 1 Occurrenc es starting 08/27/2020 until 08/27/2020 Culture, Wound [facility] Hemoglobin and Hematocrit, Blood, Post Transfusion Hemoglobin and Hematocrit, Blood, Post Transfusion Lab Routine Post Transfusion Post Transfusion Post Transfustion for 1 Occurrences starting 05/14/2020 [place] Comment on above: Post Transfusion Pos t Transfusion Post Transfustion for 1 Occurrences starting 05/14/2020 Initiate Oxygen Ther apy Protocol Initiate Oxygen Therapy Protocol Respiratory Care Routine Daily until discontinued [facility] on above: Daily until disconti nued starting 04/03/2020 End: 08-11-2019 Iron and TIBC Iron and TIBC Lab Routine Once for 1 Occurrences starting 08/11/2019 until 08/11/2019 [facility] Comment on above: Once for 1 Occurrenc es starting 08/11/2019 until 08/11/2019 Iron and TIBC Iron and TIBC La b Routine 08/11/2019 10:35 AM EST [facility] [place] End: 10-07-2024 Kidney img morphology vascular flow 1 w/rx NM RENAL FLOW/FXN W PHARM Radiology Routine Hydronephrosis with urinary obstruction due to renal calculus 1 Occurrences starting 09/08/2023 until 10/07/2024 [facility] Work Phone: Comment on above: 1 Occurrences starti ng 09/08/2023 until 10/07/2024 Oxygen therapy [[facility] Data Set] Initiate Oxygen Therapy Protocol Respiratory Care Routine Daily until discontinued starting 05/11/2020 [facility] [place] Comment on above: Daily until disconti nued starting 05/11/2020 PREPARE RBC (CROSSMATCH), 1 Units PREPARE RBC (CROSSMATCH), 1 Units Blood Bank Non-Stat 05/14/2020 8:58 AM EDT [facility] Transfuse erythrocyt es [Vol] Transfuse RBC Nursing Transfusion Routine 05/14/2020 11:30 AM EDT [facility] Payers Date Payer Category Payer Self-pay 2023 Medicaid MEDICAID [facility] MEDICAID [id number] 2023-Present [phone] [address] [place] [address] Medicaid [id number] 2022 Medicaid [id number] 2020 Unknown 2017 Medicare [facility] MEDICARE AN THEM MEDIBLUE ESSENTIAL/PLUS xxxxxxxxxxxx 2017-Present [address] [address] [place] [address] xxxxxxxxxxxx [id number] 2017 Medicare BCBS MEDICARE AN THEM MEDIBLUE ESSENTIAL/PLUS [id number] 2017-Present [address] [address] [place] [address] [id number] 2002 Medicare 2002 Medicare [id number] 1959 Medicare [id number] .[id number] 1937 Unknown [id number] [id number] 1937 Unknown [id number] [id number] 1937 Unknown [id number] [id number] 1937 Unknown [id number] [id number] 1937 Unknown [id number] 2.16.840.1.004372.3.579.2.173 1937 Unknown [id number] 2.16.840.1.997783.3.579.2.173 1937 Unknown [id number] 2.16.840.1.475448.3.579.2.173 1937 Unknown [id number] 2.16.840.1.549491.3.579.2.173 1937 Unknown [id number] 2.16.840.1.688056.3.579.2.173 1937 Unknown [id number] 2.16.840.1.207306.3.579.2.173 1937 Unknown [id number] 2.16.840.1.354044.3.579.2.173 1937 Unknown [id number] 2.16.840.1.341759.3.579.2.173 1937 Unknown [id number] 2.16.840.1.557678.3.579.2.173 1937 Unknown [id number] [id number] 1937 Unknown [id number] [id number] Unknown [id number] [id number] Social History Date Type Detail Facility Start: 09-27-2017 End: 09-07-2023 Tobacco smoking status [facility] Never smoker [facility] Start: 09-27-2017 End: 09-12-2020 Alcohol intake Current non-drinker of alcohol (finding) [place] Start: 1935 Sex Assigned At Not on file [place] Exposure to SARS-CoV -2 (event) Unable to assess [place] Start: 04-03-2020 End: 09-07-2023 Tobacco use and exposure Never used [place] Exposure to SARS-CoV -2 (event) Not sure [place] Exposure to SARS-CoV -2 (event) Yes [place] Start: 09-07-2023 Sex Assigned At [facility] [employer] Other Start: 1935 Sex Assigned At Female F [facility] Start: 09-07-2023 History of Social function [facility] National Score (1-100), lower number is lower risk 63 [facility] Medical Equipment Procedure Code Equipment Code Equipment [...] (ICD-10 - N39.0) Finish antibiotic prescribed at [facility]. Aug, Staghorn calculus (ICD-10 - N20.0) Plan per surgeon in [facility] - has appt for preoperative testing Aug, Obstructive uropathy (ICD-10 - N13.9) Aug, Metabolic encephalopathy (ICD-10 - G93.41) improved on proper antibiotics Aug, CKD (chronic kidney disease) stage 4, GFR 15-29 ml/min (ICD-10 - N18.4) stable, has televisit with her [employer] in near future. [employer] Other [id number] NotePatient Outreach (UROLMN) OVIDIOMEENU ([id number]) 1935 F Date Time Provider Department 09/07/23 RICCO GARLAND During your visit today, we recorded the following information about you: Allergies As of Date: 09/07/2023 (No Known Allergies) Date Reviewed: 09/07/2023 Reviewed by: Karen Calvillo O[facility] - Fully Assessed Visit Diagnosis:Screening for genitourinary condition [Z13.89] Order(s):URINALYSIS, REFLEX MICROSCOPIC [[id number]] Order #: [id number]. #:[id number] Prescriptions as of 09/10/2023 - VITAMIN C [...] hip surgery [Z98.890] 09/07/2023 Encounter Status:Closed by [facility], [facility]ODUSER on 09/10/23[facility] 09-07-2023 NoteHNO ID: [id number] Author: Ricco Garland MD Service: ? Author [...] hardly hear me. Though not listed in [employer], patient's daughter indicates Dr. Harsh Clayton recommended [...] based on size, location, hounsfield units and [id number] distance: 0% 3. Ureteroscopy - risks of [...] with more than 50% of the total [id number] time of the visit devoted to patient counseling/coordination of care. Ricco Garland MD, FACS Director, Surgical Stone Disease, [facility] [place] section [employer] property manager, [employer] Pager [phone] 09/07/2023[facility]09-15-2023 Evaluation note* Encounter Date Diagnosis Assessment Notes Treatment Notes Treatment Clinical Notes May, Bilateral impacted cerumen (ICD-10 - H61.23) [employer] Other 08-30-2023 Evaluation note* Encounter Date Diagnosis [...] chronic disease (ICD-10 - D63.8) As above. [employer] Other Evaluation noteNo [employer]ort [employer] Other Evaluation note* Diagnosis Onset Date Resolution Status Acute metabolic encephalopathy acute PRESTON (acute kidney injury) ac debi Constipation acute Dementia acute Hallucinations acute Hypertension acute Right nephrolithiasis acute Staghorn calculus acute UTI (urinary tract infection) acute [facility] Work Phone: Evaluation note* Diagnosis Hydronephrosis with urinary obstruction due to renal calculus- Primary Nephrolithiasis Calculus of kidney [facility] Diagnosis Nephrolithiasis- Primary Calculus of kidney Nephrolithiasis Calculus of kidney documented in this encounter [facility] general Narrative - Reported* Type Description Date [...] History CHOLECYSTECTOMY Hospitalization History SEE SURGICAL HX [employer] Other Reason for referral (narrative)* Diagnostic Procedure Only (Routine) - Pending Review Specialty Diagnoses / Procedures Referred By Contac t Referred To Contact MOLECULAR & FUNCTIONAL IMAGING Diagnoses Hydronephrosis with urinary obstruction due to renal calculus Procedures NM RENAL FLOW/FXN W PHARM KIDNEY IMG MORPHOLOGY VASCULAR FLOW 1 W/RX Ricco Garland MD [address] [place] [address] Molecular & Functional Imaging [address] [place] [address] Referral ID Status Reason Start Date Expiration Date Visits Requested Visits Authorized [id number] Pending Review Auto-Generat ed Referral 3 10/07/2024 1 1 [facility] Advance Directives No Advanced Directives Records FoundDocuments on File Type Date Recorded Patient Heavy Forger Expl anation Advance Directives and Living Will Power of Configuration Analyst Documents on File Type Date Recorded Patient Heavy Forger Expl anation Advance Directives and Living Will Power of Configuration Analyst Latest Code Status on File Code Status Date Activated Date Inactivated Comments DNR-CCA 04/05/2020 7:40 AM Full Code 04/02/2020 11:53 PM 04/05/2020 7:40 AM Documents on File Type Date Recorded Patient Heavy Forger Expl anation Advance Directives and Livin g Will Advance Directives and Livin g Will 04/09/2020 4:57 PM Power of Configuration Analyst Power of Configuration Analyst 04/09/2020 4:57 PM Latest Code Status on File Code Status Date Activated Date Inactivated Comments DNR-CCA 04/05/2020 7:40 AM 04/06/2020 2:39 PM Full Code 04/02/2020 11:53 PM 04/05/2020 7:40 AM Documents on File Type Date Recorded Patient Heavy Forger Expl anation ACP-Advance Directive ACP-Advance Directive 04/09/2020 4:57 PM ACP-Power of Configuration Analyst ACP-Power of Configuration Analyst 04/09/2020 4:57 PM DNR Documentation 04/09/2020 4:57 PM Latest Code Status on File Code Status Date Activated Date Inactivated Comments Full Code 05/10/2020 3:57 PM Full Code 05/10/2020 10:16 AM 05/10/2020 3:48 PM DNR-CCA 04/05/2020 7:40 AM 04/06/2020 2:39 PM Documents on File Type Date Recorded Patient Heavy Forger Expl anation ACP-Advance Directive ACP-Advance Directive 04/09/2020 4:57 PM ACP-Do Not Resuscitate 05/16/2020 1:04 PM ACP-Power of Configuration Analyst ACP-Power of Configuration Analyst 04/09/2020 4:57 PM DNR Documentation 04/09/2020 4:57 PM Latest Code Status on File Code Status Date Activated Date Inactivated Comments Full Code 05/10/2020 3:57 PM 05/15/2020 9:57 PM Full Code 05/10/2020 10:16 AM 05/10/2020 3:48 PM DNR-CCA 04/05/2020 7:40 AM 04/06/2020 2:39 PM Documents on File Type Date Recorded Patient Heavy Forger Expl anation ACP-Advance Directive ACP-Advance Directive 04/09/2020 4:57 PM ACP-Advance Directive 06/13/2020 10:59 AM ACP-Do Not Resuscitate 05/16/2020 1:04 PM ACP-Do Not Resuscitate ACP-Do Not Resuscitate 06/13/2020 10:59 AM ACP-Power of Configuration Analyst ACP-Power of Configuration Analyst 04/09/2020 4:57 PM DNR Documentation 04/09/2020 4:57 PM Documents on File Type Date Recorded Patient Heavy Forger Expl anation ACP-Advance Directive ACP-Do Not Resuscitate ACP-Power of Configuration Analyst ACP-Advance Directive 06/13/2020 10:59 AM ACP-Do Not Resuscitate 06/13/2020 10:59 AM ACP-Do Not Resuscitate 05/16/2020 1:04 PM ACP-Advance Directive 04/09/2020 4:57 PM ACP-Do Not Resuscitate 04/09/2020 4:57 PM ACP-Power of Configuration Analyst 04/09/2020 4:57 PM Advance Directive Response Recorded [...] Services Required Physical Therapy Diagnoses General weakness iRcco Sánchez MD [address] [place] [address], [place] [address] Assessments Diagnosis Chronic kidney disease, stage IV (severe) (HCC) Chronic kidney disease, Stage IV (severe) Diagnosis Closed displaced intertrochanteric fracture of left femur, initial encounter ([facility]) Diagnosis Pain of left hip joint Diagnosis [...] Care Everywhere. * Hip Fracture: Surgery: Post-op (Chilean) documented in this encounter* Discharge Instr - [...] most local grocery stores, pharmacies, and chain [employer]-stores. ? If you have any questions about [...] Hospital Unit/Room#: 0311/0311-01 Discharging Unit Phone Number: [phone] Emergency Contact: Extended Emergency Contact Information Primary Emergency Contact: Isaias Nolan Address: [address] [place] [id number] Relation: Spouse Secondary Emergency Contact: Maranda Da [...] Dependent Dressing Dependent Toileting Dependent Feeding Independent Lumber Marker Assisted Med Delivery whole Wound Care Documentation [...] Readmission: 15 Discharging to Facility/ Agency Name: [facility] Address:[address] [place] [address] Dialysis Facility (if applicable) Name: Address: Dialysis Schedule: Phone: Fax: Splash Line Operator/Custom Protection Officer signature: PHYSICIAN SECTION Prognosis: {Prognosis:4037353899} Condition at Discharge: {MH Patient Condition:424734915} Rehab Potential (if transferring to Rehab): {Prognosis:7914472622} Recommended Labs or Other Treatments After Discharge: Physician Certification: I certify the above information and transfer of Meenu Nolan is necessary for the continuing treatment of the diagnosis listed and that she requires Custodial Facility for greater 30 days. Update Admission H&P: {CHP DME Changes in HandP:640426513} PHYSICIAN SIGNATURE: {Esignature:987326715} documented in this encounter* Discharge Instr - [...] Agent's Name Healthcare Agent's Phone Number 05/10/20 1885 Unknown, patient unable to respond due to medical condition -- -- -- -- -- Admitting Physician: Chele Lagos MD PCP: Justino Dhaliwal DO Discharging Nurse: Nirmala WESLEY Discharging Hospital Unit/Room#: 7K-19/019-A Discharging Unit Emergency Contact: Extended Emergency Contact Information Primary Emergency Contact: Isaias Nolan Address: [address] [place] [id number] Relation: Spouse Secondary Emergency Contact: Maranda Da Silva Relation: Child Past Surgical History: Past Surgical History: Procedure Laterality Date CHOLECYSTECTOMY HYSTERECTOMY JOINT REPLACEMENT knee REVISION TOTAL HIP ARTHROPLASTY Left 05/10/2020 HARDWARE REMOVAL LEFT HIP, CONVERSION TO LEFT TOTAL HIP performed by Chele Lagos MD at [facility] OR Immunization History: There is no immunization [...] Assisted Dressing Assisted Toileting Assisted Feeding Independent Lumber Marker Assisted Med Delivery whole Wound Care Documentation [...] Readmission: 20 Discharging to Facility/ Agency Name: [facility] Address: [address] [place] [address] Dialysis Facility (if applicable) Name: Address: Dialysis Schedule: Phone: Fax: Splash Line Operator/Custom Protection Officer signature: ICIAN SECTION Prognosis: Fair Condition at Discharge: Stable Rehab Potential (if transferring to Rehab): Fair Recommended Labs or Other Treatments After Discharge: n/a Physician Certification: I certify the above information and transfer of Meenu Nolan is necessary for the continuing treatment of the diagnosis listed and that she requires Custodial Facility for greater 30 days. Update Admission [...] not made for you at discharge, call [phone] ([place] office) or [phone] ([place] office) to schedule an appointment for 8 [...] Everywhere. * Hip Replacement: Posterior: Precautions: Post-op (Chilean) * Hip Replacement Surgery: Posterior: Post-op (Chilean) documented in this encounter* Instructions* Leta Irwin RN - 05/30/2020 Wound Management Patient Discharge Instructions CALL [phone] for questions regarding care of your wounds. [...] Put on bandages as your doctor or lean specialist says. Keep healthy tissue around the [...] Where can you learn more? Go to [email or web address] and sign in to your [employer] account. Enter F114 in the Search Health Information box to learn more about Pressure Injuries: Care Instructions. If you do not have an account, please click on the Sign Up Now link. Current as of: November 29, 2019 Content Version: 12.5 [employer]. Care instructions adapted under license by [employer]. If you have questions about a medical condition or this instruction, always ask your healthcare professional. [employer] disclaims any warranty or liability for your use of this information. Wound Management Patient Discharge Instructions CALL [phone] for questions regarding care of your wounds. [...] 06/27/2020 Wound Management Patient Discharge Instructions CALL [phone] for questions regarding care of your wounds. [...] 07/18/2020 Wound Management Patient Discharge Instructions CALL [phone] for questions regarding care of your wounds. [...] Time Provider Department Center 08/15/2020 10:30 AM NOARH Cruz Comments: We hope we gave you VERY GOOD care today! documented in this encounter* Instructions* Leta Irwin RN - 09/12/2020 Wound Management Patient Discharge Instructions CALL [phone] for questions regarding care of your wounds. [...] 08/15/2020 Wound Management Patient Discharge Instructions CALL [phone] for questions regarding care of your wounds. [...] pickup. Husbandat bedside will update. * Yolanda Mansfield RN - 04/06/2020 8:38 AM EDT returned call, he will be in to see pt around 1000. Will wait to discharge pt until he has seen her. * Yolanda Mansfield RN - 04/06/2020 8:30 AM EDT Called pts to let him know that pt is discharged back to [facility]. Voicemail left for to return call. * [...] 04/05/2020 7:53 AM EDT Occupational Therapy Facility/Department: [facility] Daily Treatment Note NAME: Meenu Nolan : 1935 Date of Service: 04/05/2020 Discharge Recommendations: Continue to assess pending progress, Subacute/Custodial Facility, Patient would benefit from continued therapy [...] Pt uncooperative with assessment. Eyes closed upon headline writer entering room, easily aroused. Pt yells at headline writer to leave her alone. Pt tachypneic [...] Patient has not eaten any meals today. Shingle Sawyer attempted to help feed the patient. Patient refused. * Robinson Ellsworth PTA - 04/04/2020 2:38 PM EDT Physical Therapy Facility/Department: [facility] Daily Treatment Note NAME: Meenu Nolan : 1935 Date of Service: 04/04/2020 Discharge Recommendations: Continue to assess pending progress, Subacute/Custodial Facility, ECF with PT, Patient would benefit [...] is approved by insurance to return to [facility]. SAAD Hough * Caprice Echeverria [...] Tells me that she has been at [facility] for 6 weeks now for therapy after a fractured hip. Her confusion has gradually gotten worse, more so lately. Support given. states that she has been unable to walk lately, which is the reason she was brought to the hospital. Admitted with cellulitis. Spiritual screening done. Tells me that the linux admin engineer visited with them yesterday. Denies any spiritual needs at this time. Emotional support given. DNR paper order form to be placed on paper chart for signature. Will continue to follow and support. Caprice Echeverria RN, [facility] Palliative Care Nurse Coordinator 04/04/2020 11:24 AM * Alicia Miller RN - 04/04/2020 9:04 AM EDT Patient resting quietly in bed. No complaints at this time. Patient tolerated medications well. * Alicia Miller RN - 04/04/2020 8:45 AM EDT Patient refuses breakfast at this time. * Natalie Guzman PTA - 04/04/2020 8:39 AM EDT Physical Therapy Facility/Department: [facility] Daily Treatment Note NAME: Meenu Nolan : 1935 Date of Service: 04/04/2020 Discharge Recommendations: Continue to assess pending progress, Subacute/Custodial Facility, ECF with PT, Patient would benefit [...] like for her mother to return to [facility] following this hospitalization. Daughter is aware, per this headline writer, that [facility] does have Covid positive resident in their facility at this time. Referral made to [facility] via telephone voicemail message left for Kae Orta re:above. [facility] will begin pre-cert and notify MAGNETIC TAPE COMPOSER OPERATOR when Patient is able to return. SAAD Koroma 04/03/2020 * Iza Hein LSW - 04/03/2020 3:15 PM EDT Met with Patient to discuss discharge planning. Unable to complete assessment due to Patient confusion. Telephone voicemail message left for Patient's spouse and for her daughter. Spoke with Admission's motor vehicle representative at [facility] where Patient was residing at the time ofher hospitalization. She states that [facility] will take Patient back if she or her family chooseto send her back at this time with the knowledge that [facility] has Covid positive Patient in their facility at this time. MAGNETIC TAPE COMPOSER OPERATOR will await a telephone call back from Patient's family to determine discharge planning goals. Iza Hein, SAAD 04/03/2020 * Gretchen Chapa, SENIOR SYSTEM OPERATOR - 04/03/2020 3:09 PM EDT [facility] Inpatient/Observation/Outpatient Rehabilitation Date: 04/03/2020 Patient Name: Meenu [...] 04/03/2020 9:30 AM EDT Physical Therapy Facility/Department: [facility] Initial Assessment NAME: Meenu Nolan : 1935 Date of Service: 04/03/2020 Discharge Recommendations: Continue to assess pending progress, Subacute/Custodial Facility, ECF with PT, Patient would benefit [...] History Lives With: Alone Type of Home: Facility([facility]) Home Layout: One level Home Equipment: Rolling walker ADL Assistance: Needs assistance Homemaking Assistance: Needs assistance IADL Comments: Limited hx provided by pt d/t impaired cognition. Pt resided at [facility] SENIOR SYSTEM OPERATOR, butunable to determine what length of time. Per EMR, pt went to [facility] for rehab following L hip fx. Cognition [...] 5. Fluid Accumulation-Mild fluid accumulation, Extremities 6. Pneumatic Tester Mechanic Strength-Not measured Recent Labs 04/02/20 1445 04/02/20200404/03/20 0555 NA 137 139 140 K 2.9* 3.4* 3.5* CL 92* 96* 96* CO2 29 28 26 BUN 37* 35* 30* CREATININE 1.41* 1.33* 1.17* GLUCOSE 200* 149* 157* GFR Lab Results Component Value Date LABALBU 3.3 03/25/2020 LABALBU 4.4 02/19/2012 Nutrition Risk Level: Moderate Nutrient Needs: Estimated Daily Total Kcal: 6191-4404 Estimated Daily Protein (g): 55-65 Estimated Daily [...] Usual Body Wt: 159 lb (72.1 kg) Rhododendron Body Wt: 100 lb (45.4 kg), % Rhododendron Body 158% BMI Classification: BMI 30.0 - 34.9 Obese Class I Nutrition Interventions: Continue current diet Continued Inpatient Monitoring, Education Completed Nutrition Evaluation: Evaluation: Goals set Goals: >75% PO Monitoring: Meal Intake, Supplement Intake, Weight, Pertinent Labs, Chewing/Swallowing, Patient/Family Education, Constipation Contact Number: [phone] * Sonali Avitia, [facility] - 04/03/2020 8:11 AM EDT Piperacillin-Tazobactam Extended [...] You, Sonali Avitia04/03/20208:11 AM * Vernell Stephenson [facility] - 04/03/2020 7:29 AM EDT [facility] Department of Pharmacy Pharmacy Renal Adjustment Note [...] ml/min. Vernell Stephenson,04/03/2020,7:29 AM * Vernell Stephenson [facility] - 04/03/2020 7:26 AM EDT [facility] Department of Pharmacy Pharmacy Renal Adjustment Note [...] Garcia RN - 04/03/2020 5:58 AM EDT Shingle Sawyer and 2 RNs came change's patient's bed linen, gown, and brief at this time. Corrine care was performed. Patient is suddenly a lot more pleasant, cooperative, and able to hold a conversation. Patient is now orientated to person, birthday and place. Patient states she does not know the month. Shingle Sawyer re orientated patient to month. Shingle Sawyer is going to attempt to regain IV access. Leads were also off and reapplied. * Vicki Gacria RN - 04/03/2020 5:40 AM EDT Leaf Conditioner alerted headline writer that patient had removed her brief and pull out her IV at this time. * Vicki Garcia RN - 04/03/2020 2:45 AM EDT Patient refused being repositioned at this time. Don't touch me, patient stated. * Vicki Garcia RN - 04/03/2020 2:28 AM EDT Navigator completed to headline writer's best ability. Multiple items of the [...] to leave the room at this time. Shingle Sawyer will continue to monitor. * Vicki Garcia [...] Garcia RN - 04/03/2020 12:43 AM EDT Shingle Sawyer attempted to give verpamil, xanax and tylenol crushed in pudding at this time. Patient refused, patient smacked headline writer and swore at headline writer and with headline writer's final attempt after explaining it had pain medication in the pudding to help her feel better, patient smacked the spoon out of headline writer'antonio and onto the floor, stating it smells like shit and I dont want no pills. Shingle Sawyer was able to pick up patient to IV fluids however patient was mad at headline writer for doing so and swatted at headline writer. * Vicki Garcia RN - 04/03/2020 12:28 AM EDT Patient stated get the hell out of here and that myself and Valerie RN are a pain in the ass and need to get out. Shingle Sawyer is attempting to give medications at this time. * Vicki Garcia RN - 04/03/2020 12:10 AM EDT Heart monitor applied at this time by headline writer. While applying heart monitor tabs patient was verbally agressive stating leave me alone, stop touching me and will you go downstairs and stay down there!? * Abhilash Jalloh [facility] - 04/03/2020 12:10 AM EDT Pharmacy Note Renal Dose Adjustment Meenu Nolan is a 84 y.o. female. Pharmacist assessment of renally cleared medications. Recent Labs 04/02/20 1445 04/02/202004 BUN 37* 35* Recent Labs 04/02/20 1445 04/02/202004 CREATININE 1.41* 1.33* CrCl cannot be calculated (Unknown ideal weight.). Estimated CrCl using Rhododendron Body Weight: 23.4 mL/min (based on IBW 45.5 kg) Height: Ht Readings from Last 1 Encounters: 03/23/20 5' (1.524 m) Weight: Wt Readings from Last 1 Encounters: 03/23/20 159 lb (72.1 kg) The following medication dose has been adjusted based upon renal function per P&T Guidelines: Unasyn 1.5 gm IV every 8 hours changed to 1.5 gm IV every 12 hours. Abhilash Jalloh [facility] 04/03/2020 12:10 AM * Vicki Garcia RN - 04/03/2020 12:03 AM EDT Patient is disorientated x4. Patient stated I do not have a name. Did not respond when asked whenpatient was born multiple times. Patient stated we're at [facility] house when replying to location and stated no what was the month. Patient unable to answer questions at this time due to disorientation. ER nurses states hasnot seen weeks and was unable to speak on her care. Patient is from [facility], headline writer will review the paperwork sent over by [facility]. Patient is resting with eyes closed at this time, patient is confused and opens eyes occasional when spoken to. * Abhilash Jalloh [facility] - 04/03/2020 12:03 AM EDT Pharmacy Note Renal Dose Adjustment Meenu Nolan is a 84 y.o. female. Pharmacist assessment of renally cleared medications. Recent Labs 04/02/20 1445 04/02/202004 BUN 37* 35* Recent Labs 04/02/20 1445 04/02/202004 CREATININE 1.41* 1.33* CrCl cannot be calculated (Unknown ideal weight.). Estimated CrCl using Rhododendron Body Weight: 23.42 mL/min (based on IBW 45.5 kg) Height: Ht Readings from Last 1 Encounters: 03/23/20 5' (1.524 m) Weight: Wt Readings from Last 1 Encounters: 03/23/20 159 lb (72.1 kg) The following medication dose has been adjusted based upon renal function per P&T Guidelines: Enoxaparin 40 mg subcutaneously once daily changed to enoxaparin 30 mg subcutaneously once daily. Abhilash Jalloh [facility] 04/03/2020 12:03 AM * Vicki Garcia RN - 04/02/2020 11:20 PM EDT [facility] ER via bed at this time. Patient was moved over to bed via flat sheet with 4 nurses. Patient unable to assist. documented in this encounter* Nirmala Lanier RN - 05/15/2020 3:50 PM EDT Report called to RN at [facility] in [place]. Facility will accept patient after 10pm when Jenniferan pick her up. * Natasha Escobedo MD - 05/15/2020 11:58 AM EDT Hospitalist Progress Note Patient: Meenu Nolan Unit/Bed:-19/019-A Date of : 1935 Acct: [id number] PCP: Justino Dhaliwal DO Date of Admission: [...] hypertension Hospital Course: Initial admission HPI by x ray consultant physician reviewed as below: 84-year-old female [...] [] Rehab [] Psych [] SNF [] [facility] [] Other- Code Status: Full Code PT/OT Eval Status: * Katarina Pike, METAL SANDER - PHYSICAL THERAPIST - 05/15/2020 11:39 AM EDT Orthopaedic Progress [...] prn PT/OT dvt ppx * Bettie Chavez SENIOR SYSTEM OPERATOR - 05/14/2020 12:06 PM EDT [facility] INPATIENT PHYSICAL THERAPY DAILY NOTE [facility] ORTHOPEDICS 7K - 7K-19/019-A Time In: 1125 [...] Function: Lives With: Alone Type of Home: Facility([facility] x6-7 months) ADL Assistance: Needs assistance(recently requiring assist with all at [facility]) Homemaking Assistance: (dependent on staff) Ambulation Assistance: Needs assistance Transfer Assistance: Needs assistance Additional Comments: Pt reports being a long time since she has walked, reports living at [facility] x6-7 months, was starting to work on [...] with functional mobility. Functional Outcome Measures: Completed AM-[facility] Inpatient Mobility Raw Score : 8 AM-[facility] Inpatient T-Scale Score : 28.52 ASSESSMENT: Assessment: Patient progressing toward established goals. Activity Tolerance: Patient tolerance of treatment: fair. Pt pleasantly confused during session. Equipment Recommendations:Equipment Needed: No Discharge Recommendations: Subacute/Custodial Facility Plan: Times per week: 4-5x O [...] A x 2 for increased functional mobility. salvage determiner goals Time Frame for salvage determiner goals : NA due to short length of stay. Following session, patient left in safe position with all fall risk precautions in place. * Chele Lagos MD - 05/14/2020 9:42 AM EDT Physician Progress Note PATIENT: MEENU NOLAN CSN #: [id number] : 1935 ADMIT DATE: 05/10/2020 9:36 AM [...] you! Howard Darling, STEVON,RN, CRCR RN Clinical Clay Shop Supervisor P: [phone] Options provided: -- Acute blood loss anemia [...] 9:41 AM * Katarina Pike APRN - PHYSICAL THERAPIST - 05/14/2020 8:35 AM EDT Orthopaedic Progress [...] Nolan Unit/Bed:-19/019-A Date of : 1935 Acct: [id number] PCP: Justino Dhaliwal DO Date of Admission: [...] reviewed in chart review snap shot in Visual [employer] CC: Consult for medical management HPI: Initial admission HPI by x ray consultant physician reviewed as below: 84-year-old female [...] Please excuse my TYPOS! * Katarina Pike, METAL SANDER - PHYSICAL THERAPIST - 05/13/2020 11:30 AM EDT Orthopaedic Progress [...] - 05/13/2020 9:29 AM EDT [facility] INPATIENT PHYSICAL THERAPY DAILY NOTE [facility] 7K - 7K-19/019-A Time In: 08 [...] Function: Lives With: Alone Type of Home: Facility([place] x67 [facility]) ADL Assistance: Needs assistance(recently requiring assist with all at [facility]) Homemaking Assistance: (dependent on staff) Ambulation Assistance: Needs assistance Transfer Assistance: Needs assistance Additional Comments: Pt reports being a long time since she has walked, reports living at [place] x6-7 months, was starting to work on [...] with functional mobility. Functional Outcome Measures: Completed AM-[facility] Inpatient Mobility without Stair Climbing Raw Score : 8 AM-[facility] Inpatient without Stair Climbing T-Scale Score : 30.65 ASSESSMENT: Assessment: Patient progressing toward established goals. Activity Tolerance: Patient tolerance of treatment: good. Pt able to get up with less assist this date. Equipment Recommendations:Equipment Needed: No Discharge Recommendations: Subacute/Custodial Facility Plan: Times per week: 4-5x O [...] A x 2 for increased functional mobility. salvage determiner goals Time Frame for salvage determiner goals : NA due to short length of stay. Following session, patient left in safe position with all fall risk precautions in place. * Saleem Gomes MD - 05/13/2020 8:25 AM EDT Hospitalist Progress Note Patient: Meenu Nolan Unit/Bed:7K-19/019-A Date of : 1935 Acct: [id number] PCP: Justino Dhaliwal DO Date of Admission: [...] medical management HPI: Initial admission HPI by x ray consultant physician reviewed as below: 84-year-old female [...] EDT Hospitalist Progress Note Patient: Meenu Nolan Unit/Bed:[facility]19/019-A Date of : 1935 Acct: [id number] PCP: Justino Dhaliwal DO Date of Admission: [...] medical management HPI: Initial admission HPI by x ray consultant physician reviewed as below: 84-year-old female [...] - 05/11/2020 2:37 PM EDT [facility] INPATIENT PHYSICAL THERAPY EVALUATION [facility] 7K - 7K-19/019-A Time In: 1325 [...] History: Lives With: Alone Type of Home: Facility([place] x6-7 months) ADL Assistance: Needs assistance(recently requiring assist with all at [facility]) Homemaking Assistance: (dependent on staff) Ambulation Assistance: Needs assistance Transfer Assistance: Needs assistance Additional Comments: Pt reports being a long time since she has walked, reports living at [place] x6-7 months, was starting to work on [...] with functional mobility. Functional Outcome Measures: Completed AM-[facility] Inpatient Mobility without Stair Climbing Raw Score : 6 AM-[facility] Inpatient without Stair Climbing T-Scale Score : [...] FOLLOW UP: Yes Discharge Recommendations: Discharge Recommendations: Subacute/Custodial Facility Patient Education: PT Education: PT Role, [...] A x 2 for increased functional mobility. USP goals Time Frame for salvage determiner goals : NA due to short length of stay. Following session, patient left in safe position with all fall risk precautions in place. * Marcia Escalera, OT - 05/11/2020 10:44 AM EDT [facility] INPATIENT OCCUPATIONAL THERAPY [facility] 7K EVALUATION Time: Time In: 958 [...] History: Lives With: Alone Type of Home: Facility([place] x6-7 [facility]) ADL Assistance: Needs assistance(recently requiring assist with all at [facility]) Homemaking Assistance: (dependent on staff) Ambulation Assistance: Needs assistance Transfer Assistance: Needs assistance Additional Comments: Pt reports being a long time since she has walked, reports living at [place] x6-7 months, was starting to work on [...] independence and quality of life. Discharge Recommendations: Subacute/Custodial Facility, Patient would benefit from continued therapy [...] EDT Hospitalist Progress Note Patient: Meenu Nolan Unit/Bed:[address] [place] [address] Date of : 1935 Acct: [id number] PCP: Justino Dhaliwal DO Date of Admission: [...] reviewed in chart review snap shot in [employer] CC: Consult for medical management HPI: Initial admission HPI by x ray consultant physician reviewed as below: 84-year-old female [...] AM EDT The patient arrived with a director of critical care. Patient in a wheelchair. Patient was transferred [...] Martínez DPM - 06/13/2020 10:45 AM EDT [facility] Progress Note [...] HIP performed by Chele Lagos MD at [facility] OR FAMILY HISTORY History reviewed. No pertinent [...] Z96.649 Decubitus ulcer of heel, left, unstageable ([facility]) L89.620 REC: excisional debridement / culture Specialized [...] (cm^3) 0.99 cm^3 05/30/20 1346 Wound Assessment Hazel;Slough;Yellow 05/30/20 1346 Drainage Amount Moderate 05/30/20 1346 Drainage Description Serosanguinous 05/30/20 1318 Odor None 05/30/20 1318 Corrine-wound Assessment Clean;Dry;Intact 05/30/20 1318 Non-staged Wound Description Full thickness 05/30/20 1346 Hazel%Wound Bed 50 05/30/20 1346 Yellow%Wound Bed 50 [...] Weight- Weight: 161 lb 8 oz (73.3 kg)([facility] weight) IBW- 115 # %IBW- 141 % [...] Needs- BEE- 1162 kcal Total Calorie Needs- 7106-3989 (25-28 kcal/kg) Total Protein Needs- 78-94 (1.5-1.8 [...] States she eats too much. Staff from [facility] Pt is on a daily MVI w/minerals [...] weaknes s, pain in joints. 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 Displaced intertrochanteric fracture of left femur, subsequent encounter for closed fracture with routine healing LEFT HIP PERIPROSTHETIC FEMUR FX WITH COMPLETE DISPLACEMENT Procedures AZ REMOVAL SUPERFICIAL IMPLANT AZ CONV PREV HIP SURG TO TOT HIP ARTHROPLAS HARDWARE REMOVAL LEFT HIP, CONVERSION TO LEFT TOTAL HIP Chele Lagos MD [address] [place] [address] [facility] Reason Comments Wound Check Bilateral heels Reason Comments Wound Check bilateral heels Reason Comments Wound Check bilateral heel/leg w ounds Reason Comments Wound Check left heel Reason Comments Wound Check Left heel Reason Comments Wound Check LEFT HEEL AND DEPARTMENT ASSISTANT RIOR LOWER LEG INFORMATION SOURCE (unrecogn ized section and content) DATE CREATED AUTHOR 05/22/2020 [facility] DATE CREATED AUTHOR AUTHOR'S ORGANIZ ATION 08/29/2020 [facility] DATE CREATED AUTHOR AUTHOR'S ORGANIZ ATION 04/20/2021 [facility] DATE CREATED AUTHOR AUTHOR'S ORGANIZ ATION 10/15/2021 [facility] DATE CREATED AUTHOR AUTHOR'S ORGANIZ ATION 09/07/2023 [facility] DATE CREATED AUTHOR AUTHOR'S ORGANIZ ATION 09/14/2023 [facility] DATE CREATED AUTHOR AUTHOR'S ORGANIZ ATION 09/30/[address] [facility] Care Teams (unrecognized sec tion and [...] any alcohol or drug abuse patient.[facility] Hospital[facility] the event this information is protected by the Federal Confidentiality of Alcohol and Drug Abuse Patient Records regulations: The Federal rules restrict any use of the information to criminally investigate or prosecute any alcohol or drug abuse patient.[facility] FOR RECORDS PERTAINING TO PATIENTS WHO ARE [...] BE BASED ON THE PRIMARY CLINICAL RECORDS. [facility] [employer] [facility]. provides no warranty or guarantee of the accuracy or completeness of information in this document.
[2023-10-01 08:44] LABS: Bilirubin Urine NEGATIVE (NEGATIVE); Blood Urine TRACE-I (NEGATIVE); Color Urine LT. YELLOW (YELLOW); Glucose Urine UA NEGATIVE (NEGATIVE); Ketones Urine NEGATIVE (NEGATIVE); Leukocyte Esterase Urine LARGE (NEGATIVE); Nitrite Urine NEGATIVE (NEGATIVE); Protein Urine NEGATIVE (NEG/TRACE); Urobilinogen Urine 0.2 EU/dL (0.2-1.0); pH Urine 6.5 (5.0-9.0)
[2023-10-01 08:45] LABS: Clarity Urine SLIGHTLY CLOUDY (CLEAR); Urine Microscopic Indicated YES
[2023-10-01 08:49] LABS: Bacteria Urine TRACE #/HPF (NONE SEEN); Cast Seen? NONE SEEN #/LPF (NONE SEEN); Crystals Seen? None Seen #/HPF (None Seen); Mucus Urine NONE SEEN (NONE SEEN); RBC Urine 0-2 #/HPF (0-2); Squamous Epithelial Cell Urine NONE SEEN #/LPF (NONE/RARE); Urine Culture Indicated YES
[2023-10-01 11:00] LABS: Creatinine Urine Random 44.72 mg/dL (20.00-300.00); Protein Creatinine Ratio Urine 0.56
== END 2023-09-30 00:01 | disposition home or self-care (01) ==
LOC: LAB
PROVIDERS: PCP Family Medicine
DX: I12.9 Hypertensive chronic kidney disease with stage 1 through stage 4 chronic kidney disease, or unspecified chronic kidney disease (principal); N18.4 Chronic kidney disease, stage 4 (severe); N25.0 Renal osteodystrophy; E87.8 Other disorders of electrolyte and fluid balance, not elsewhere classified; E87.70 Fluid overload, unspecified; R82.998 Other abnormal findings in urine
CPT/HCPCS: 81001; 82570; 84156; 87086; 87150; 87186

== ENCOUNTER 2023-10-01 01:20 | Outpatient (REF) | payer MEDICARE, MEDICAID, SELFPAY ==
--- OUTSIDE RECORDS SUMMARY | 2023-10-01 01:30 | XMS_ITS | CCD ---
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 Helper Name Role Phone Justino Dhaliwal Primary Care Provider CHELE LAGOS Admitting Unavailable CHELE LAGOS Attending Unavailable MADHURI, JUSTINO Boone Primary Care Unavailable PENNY DOWNEY Consulting Unavailable NATASHA ESCOBEDO Consulting Unavailable MadhuriJustino felix Primary Care Provider [phone] Carlos Carlin Admitting Unavailable Carlos Carlin Attending Unavailable MADHURI, JUSTINO HUNG Primary Care Unavailab le MADHURI, JUSTINO HUNG Consulting Unavailab le Madhuri DO, Justino Boone Primary Care Provider DAVID, DR ABHILASH Grayson Attending Unavailable HERNANDEZ, DR ABHILASH Grayson Consulting Unavailable HERNANDEZ, DR ABHILASH Grayson Admitting Unavailable MADHURI, JUSTINO Boone Referring Unavailable MADHURI, JUSTINO Boone Primary Care Unavailable MADHURI, JUSTINO Boone Referring Unavailable MADHURI, JUSTINO Boone Primary Care Unavailable RATNASAMY, MANUEL Referring Unavailable MADHURI, JUSTINO Boone Primary Care Unavailable MADHURI, JUSTINO Boone Primary Care Unavailable MADHURI, JUSTINO Boone Referring Unavailable MADHURI, JUSTINO Boone Primary Care Unavailable RATNASAMY, MANUEL Referring Unavailable MADHURI, JUSTINO Boone Primary Care Unavailable RATNASAMY, MANUEL Referring Unavailable RATNASAMY, MANUEL Referring Unavailable MADHURI, JUSTINO Boone Primary Care Unavailable IBOAYA, BENAHILI U Referring Unavailable MADHURI, JUSTINO Boone Primary Care Unavailable MADHURI, JUSTINO Boone Referring Unavailable MADHURI, JUSTINO Boone Primary Care Unavailable MADHURI, JUSTINO Boone Referring Unavailable MADHURI, JUSTINO Boone Primary Care Unavailable Brina Cordero Unavailable MD Destiny Irwin Emergency Provider MD Brina Cordero Primary Care Provider MD Riky Bundy Admit Provider MD Riky Bundy Attending Provider Brina Cordero Primary Care Unavailable Riky Bundy Admitting Unavailab Kishan Downs Attending Unavailable Justino Martinez Consulting Unavailable Unavailable Primary Care Provider UnavailHarsh Ireland Attending Unavailable Harsh CLAYTON Attending Unavailable Harsh CLAYTON Referring Unavailable Justino Martinez Attending Unavailable Justino Martinez Referring Unavailable BRINA CORDERO Primary Care Unavailable BRINA CORDERO Primary Care Unavailable RICCO GARLAND Attending Unavailable BRINA CORDERO Primary Care Unavailable ULISES OCAMPO Referring Unavailable BRINA CORDERO Primary Care Unavailable BRINA CORDERO Primary Care Unavailable BRINA CORDERO Primary Care Unavailable Allergies Allergy Classification Reported Allergen(s) Allergy Type Date of Onset Reaction(s) Facility (1 source) No Known Medication Allergies; Translations: [No Known Medication Allergies] Propensity to adverse reactions to drug (disorder) [facility] Medications Current Medications Medication Drug Class(es) Dates Sig (Normalized) Sig (Original) acetaminophen 325 mg oral tablet (20 sources) Start: 08-31-2023 take 650 mg by mouth four times daily Acetaminophen Active 650 MG PO Four times daily August 31, 2023 12:00am Start: 05-10-2020 take 650 mg by mouth every four hours as needed for pain, then take 4000 mg by mouth every twenty-four hours as needed for pain 650 mg, Oral, EVERY 4 HOURS PRN, Pain Mild (1-3), Starting Wed05/10/20 at 1557 Maximum dose of acetaminophen is 4000 mg from all sources in 24 hours. Start: 04-02-2020 acetaminophen (TYLENOL) tablet 650 mg take 1 capsule by mo ut every six hours Acetaminophen 500 MG 1 capsule as needed Orally every 6 hrs 650 MG Active take 2 tablets by mo uth every six hours as needed for pain acetaminophen (TYLENOL) 325 MG tablet Take 650 mg by mouth every 6 hours as needed for Pain 0 Active acetaminophen 325 mg / HYDROcodone bitartrate 10 mg oral tablet (20 sources) Opioid Agonist Start: 08-31-2023 take 1 tablet by mouth every six hours Hydrocodone-Acetaminophen ([place]) 10-325 mg Tablet Active 1 TAB PO Q6H August 31, 2023 12:00am Start: 2023 HYDROcodone-Ac etaminophen (NORCO) 10-325 mg per tablet Start: 07-21-2023 take 1 tablet by hailey th every six hours HYDROcodone-Acetaminophen 10-325 MG 1 tablet as needed Orally every 6 hrs for 30 days Jun, Active Start: 07-19-2023 take 1 tablet by hailey th every six hours HYDROcodone-Acetaminophen 10-325 MG 1 tablet as needed Orally every 6 hrs for 30 days Jun, Active Start: 05-15-2023 take 1 tablet by hailey th every six hours HYDROcodone-Acetaminophen 10-325 MG 1 tablet as needed Orally every 6 hrs for 30 days Apr, Active Start: 05-10-2020 HYDROcodone-ac etaminophen (NORCO) 5-325 MG per tablet 1 tablet Start: 05-10-2020 End: 05-17-2020 take 1-2 tablets by mouth every four to six hours as needed for pain HYDROcodone-acetaminophen (NORCO) 5-325 MG per tablet Indications: Status post total replacement of left hip , Periprosthetic intertrochanteric fracture of femur, initial encounter Take 1-2 tablets by mouth every 4-6 hours as needed for Pain for up to 7 days. 42 tablet 0 05/10/2020 05/17/2020 Active take 1 tablet by hailey th every four hours as needed for pain, then take 1-5 tablets by mouth every four hours as needed for pain HYDROcodone-acetaminophen (NORCO) 5-325 MG per tablet Take 1 tablet by mouth every 4 hours as needed for Pain. Pain 1-5 2 tablets for pain 6-10 every 4 hours 0 Active ALPRAZolam 0.25 mg oral tablet (20 sources) Benzodiazepine Start: 04-02-2020 End: 05-30-2020 take 0.25 mg by mouth once daily as needed for sleep 0.25 mg, Oral, NIGHTLY PRN, Sleep, Starting Wed05/10/20 at 2100 take 1 tablet by hailey th once daily as needed for sleep ALPRAZolam (XANAX) 0.25 MG tablet Take 0 .25 mg by mouth nightly as needed for Sleep. 0 Active ascorbic acid 60 mg / beta carotene 5000 unt / copper sulfate 40 mg / dl-alpha tocopheryl acetate 30 unt / sodium selenite 0.04 mg / zinc oxide 40 mg oral tablet (20 sources) Vitamin C take 1 tablet by mouth once daily Multiple Vitamins-Minerals (THERAPEUTIC MULTIVITAMIN-MINERALS) tablet Take 1 tablet by mouth daily 0 Active ascorbic acid 113 mg / beta carotene 7160 mg / cuprous oxide 0.4 mg / dl-alpha tocopheryl acetate 100 unt / zinc oxide 17.4 mg oral tablet (1 source) Vitamin C Start: take 1 tablet by mouth at dinner Vitamins A,C,V-Kjtp-Ycpkjm (Preservision Areds) 2,148 mcg-113 mg-45 mg-17.4mg Tablet Active 1 TAB PO Bedtime August 31, 2023 12:00am administer with AM and PM meals ascorbic acid 113 mg / copper gluconate 0.4 mg / docosahexaenoic acid 87.5 mg / eicosapentaenoic acid 163 mg / lutein 2.5 mg / tocopherol acetate 100 unt / zeaxanthin 0.5 mg / zinc oxide 17.4 mg oral capsule (5 sources) Vitamin C PreserVision ARE DS 2 - as directed Orally 088-40-94-1MG Active calcitriol 0.90388 mg oral capsule (20 sources) Vitamin D3 Analog Start: take 0.25 ug by mouth once daily Calcitriol Active 0.25 MCG PO Daily August 31, 2023 12:00am take 1 capsule by [facility] three times weekly Calcitriol 0.25 MCG 1 capsule Orally Thr ee times a Week Active take 1 capsule by [facility] three times weekly Calcitriol 0.25 MCG 1 capsule Orally Thr ee times a Week Active Comment on above: Take 0.25 mcg by [facility]. calcium acetate 667 mg oral tablet (13 sources) Start: take 1 tablet by mouth twice daily at mealtime Calcium Acetate 667 MG 1 tablet Orally twice daily with meals for 30 days Jul, Active cyclobenzaprine hydrochloride 10 mg oral tablet (1 source) Muscle Relaxant Start: 020 take 10 mg by mouth three times daily as needed for muscle spasms 10 mg, Oral, 3 TIMES DAILY PRN, Muscle spasms, Starting Wed05/10/20 at 1557 desoximetasone 2.5 mg/ml topical cream (20 sources) Corticosteroid desoximetasone (TOPICORT) 0.25 % cream Apply topically 2 times daily Apply topically 2 times daily. 0 Active docusate sodium 100 mg oral capsule (20 sources) Start: 023 take 100 mg by mouth twice daily Docusate Sodium Active 100 MG PO Twice daily August 31, 2023 12:00am Start: 05-11-2020 take 100 mg by mouth once quin y 100 mg, Oral, DAILY, First dose on 05/11/20 at 0900 Do not crush or break. Comment on above: Take 100 mg by mouth . 0.4 ml enoxaparin sodium 100 mg/ml prefilled syringe (20 sources) Low Molecular Weight Heparin Start: 05-10-2020 End: 06-01-2020 enoxaparin (LOVENOX) 40 MG/0.4ML injection Inject 0.4 mLs into the skin daily 18 Syringe 0 05/10/2020 Active Start: 04-03-2020 enoxaparin (LO VENOX) injection 40 mg furosemide 20 mg oral tablet (20 sources) Loop Diuretic Start: 08-31-2023 take 20 mg by mouth once daily Furosemide Active 20 MG PO Daily August 31, 2023 12:00am Comment on above: Take 20 mg by mouth. High Potency Multivitamin - (10 sources) take 1 tablet by mouth once daily High Potency Multivitamin - 1 tablet Orally Once a day Active hydrALAZINE hydrochloride 25 mg oral tablet (20 sources) Arteriolar Vasodilator Start: 08-31-2023 take 25 mg by mouth twice daily Hydralazine Active 25 MG PO Twice daily August 31, 2023 12:00am take 1 tablet by [facility] every eight hours hydrALAZINE HCl 25 MG 1 tablet with food Orally Three times a day Active Comment on above: Take 25 mg by mouth. levoFLOXacin 500 mg oral tablet (2 sources) Quinolone Antimicrobial Start: 04-06-20 End: 04-16-20 take 1 tablet by mouth once daily levoFLOXacin (LEVAQUIN) 500 MG tablet Take 1 tablet by mouth daily for 10 days 10 tablet 0 04/06/2020 04/16/2020 Active LORazepam 0.5 mg oral tablet (20 sources) Benzodiazepine Start: 08-31-20 take 0.5 mg by mouth once daily Lorazepam Active 0.5 MG PO Daily August 31, 2023 12:00am Start: 08-31-2023 take 1 mg by mouth t hree times daily Lorazepam Active 1 MG PO Three times daily August 31, 2023 12:00am Start: 08-30-2023 take 1-2 tablets by mouth three times daily LORazepam 0.5 MG 1-2 tab Orally 3 times daily for 30 days Aug, Active Start: 07-05-2023 take 1-2 tablets by mouth three times daily LORazepam 0.5 MG 1-2 tab Orally 3 times daily for 30 days Jun, Active Start: 04-16-2023 take 1-2 tablets by mouth three times daily LORazepam 0.5 MG 1-2 tab Orally 3 times daily for 30 days Mar, Active take 0.5 mg by mouth every six hours as needed LORazepam (ATIVAN) 0.5 mg Take 0.5 mg by mouth every 6 hours as needed. 0 Active take 1 tablet by hailey th every eight hours LORazepam (ATIVAN) 0.5 MG tablet Take 0.5 mg by mouth every 8 hours. 0 Active Comment on above: Take 0.5 mg by mouth every 6 hours as needed. magnesium hydroxide 80 mg/ml oral suspension (1 source) Start: 05-10-20 take 30 mL by mouth once daily as needed for constipation 30 mL, Oral, DAILY PRN, Constipation, Starting Wed05/10/20 at 1557 morphine (PF) injection 2 mg (1 source) Start: 05-10-20 morphine (PF) injection 2 mg Multiple Vitamins-Minerals (THERAPEUTIC MULTIVITAMIN-MINERAL S) tablet (2 sources) take 1 tablet by mouth once daily Multiple Vitamins-Minerals (THERAPEUTIC MULTIVITAMIN-MINERA LS) tablet Take 1 tablet by mouth daily 0 Active Multivitamin preparation (1 source) Start: 08-31-20 take 1 tablet by mouth once daily Multivitamin Active 1 TAB PO Daily August 31, 2023 12:00am Nutritional Supplements (LAURIE) PACK (20 sources) take 1 dose by mouth once Nutritional Supplements (LAURIE) PACK Take 1 each by mouth once 0 Active 2 ml ondansetron 2 mg/ml injection (3 sources) Serotonin-3 Receptor Antagonist Start: 05-10-20 4 mg, Intravenous, EVERY 6 HOURS PRN, Nausea, Starting 8/14/20 at 1557 Start: 03-23-2020 End: 03-23-2020 ondansetron (ZOFRAN) injecti on 4 mg Start: 02-09-2020 End: 02-09-2020 ondansetron (ZOFRAN) injecti on 4 mg piperacillin-tazobactam (ZOSYN) 3.375 g in dextrose 5 % 50 mL IVPB extended infusion (mini-bag) (1 source) Start: 04-03-2020 piperacillin-tazobactam (ZOSYN) 3.375 g in dextrose 5 % 50 mL IVPB extended infusion (mini-bag) polyethylene glycol 3350 03040 mg powder for oral solution (20 sources) Osmotic Laxative Start: 04-02-2020 Polyethylene Glycol 3350 (Miralax) 17 gram Powder In Packet Active 17 GM PO Daily August 31, 2023 12:00am Comment on above: Take 17 g by mouth. potassium chloride 20 meq extended release oral tablet (18 sources) Start: 08-31-2023 take 20 mEq by mouth once daily Potassium Chloride Active 20 MEQ PO Daily August 31, 2023 12:00am Start: 04-02-2020 End: 04-02-2020 potassium chloride 10 mEq/10 0 mL IVPB (Peripheral Line) Start: 04-02-2020 End: 04-02-2020 potassium chloride (KLOR-CON M) extended release tablet 40 mEq 1000 ml potassium chloride 0.02 meq/ml / sodium chloride 9 mg/ml injection (1 source) Start: 04-03-2020 Intravenous, a t 60 mL/hr, CONTINUOUS, Starting Wed04/03/20 at 0015 pravastatin sodium 10 mg oral tablet (20 sources) HMG-CoA Reductase Inhibitor Start: 05-11-2020 take 10 mg by mouth once daily Pravastatin Active 10 MG PO Daily August 31, 2023 12:00am Start: 04-03-2020 take 10 mg by mouth once daily 10 mg, Oral, DAILY, First dose on Wed04/03/20 at 0900 Comment on above: Take 10 mg by mouth. Promethazine (1 source) Phenothiazine Start: 020 promethazine (PHENERGAN) tablet 12.5 mg QUEtiapine 25 mg oral tablet (20 sources) Atypical Antipsychotic take 1 tablet by mouth twice daily QUEtiapine (SEROQUEL) 25 MG tablet Take 25 mg by mouth 2 times daily 0 Active sulfamethoxazole 800 mg / trimethoprim 160 mg oral tablet (8 sources) Dihydrofolate Reductase Inhibitor Antibacterial, Sulfonamide Antimicrobial Start: 023 take 1 tablet by mouth twice daily Sulfamethoxazole-Tr imethoprim (Bactrim Ds) 800-160 mg Tablet Active 1 TAB PO Twice daily August 31, 2023 12:00am verapamil hydrochloride 180 mg extended release oral tablet (20 sources) Calcium Channel Ellie Start: 020 take 180 mg by mouth at bedtime Verapamil Active 180 MG PO Bedtime August 31, 2023 12:00am Comment on above: Take 180 mg by mouth . Completed/Discontinued Medications Medication Drug Class(es) Dates Sig (Normalized) Sig (Original) ampicillin-sulbactam (UNASYN) 1.5 g IVPB minibag (1 source) Start: 04-02-2020 End: 04-02-2020 ampicillin-sulbacta m (UNASYN) 1.5 g IVPB minibag ascorbic acid 500 mg oral tablet (20 sources) Vitamin C Start: 08-31-2023 VITAMIN C 500 mg tablet take 1 tablet by mouth twice melva ly ascorbic acid (VITAMIN C) 500 MG tablet Take 500 mg by mouth 2 times daily 0 Active busPIRone hydrochloride 10 m g oral tablet (20 sources) Start: 08-31-2023 busPIRone (BUS PAR) 10 mg tablet Start: 05-10-2020 take 5 mg by mouth twice daily 5 mg, Oral, 2 TIMES DAILY, First dose on Wed05/10/20 at 2100 calcium chloride 0.0014 meq/ml / potassium chloride 0.004 meq/ml / sodium chloride 0.103 meq/ml / sodium lactate 0.028 meq/ml injectable solution (1 source) Start: 04-02-2020 End: 04-02-2020 lactated ringers infusion 1,000 mL ceFAZolin (ANCEF) 2 g in dextrose 5 % 50 mL IVPB (1 source) Start: 05-10-2020 End: 05-11-2020 2 g, Intravenous, EVERY 8 HOURS, 2 doses, First dose on Wed05/10/20 at 2100, Last dose on Wed05/11/20 at 0500 ciprofloxacin 500 mg oral tablet (5 sources) Quinolone Antimicrobial End: 05-30-2020 take 1 tablet by mouth twice daily ciprofloxacin (CIPRO) 500 MG tablet Take 500 mg by mouth 2 times daily 0 05/30/2020 Discontinued (LIST CLEANUP) diclofenac sodium 0.01 mg/mg topical gel (7 sources) Nonsteroidal Anti-inflammatory Drug Start: 09-04-2023 diclofenac (VOLTAREN) 1 % topical gel Voltaren 1 % as directed Externally Active Voltaren 1 % as directed Externally Active estradiol 0.1 mg/ml vaginal cream (2 sources) Estrogen Start: 09-07-2023 estradiol (EST RACE) 0.01 % (0.1 mg/gram) vaginal cream Use 1 g vaginally one time a week. 42 g 1 09/07/2023 Active Comment on above: Use 1 g vaginally on e time a week. 2 ml fentaNYL 0.05 mg/ml injection (2 sources) Opioid Agonist Start: 05-10-2020 End: 05-10-2020 fentaNYL (SUBLIMAZE) injection 50 mcg Start: 02-09-2020 End: 02-09-2020 fentaNYL (SUBLIMAZE) injecti on 25 mcg ferrous sulfate 325 mg oral tablet (20 sources) Start: 08-29-2023 ferrous sulfat e 325 mg (65 mg iron) tablet take 1 tablet by mouth once quin y Ferrous Sulfate 325 (65 Fe) MG 1 tablet Orally Once a day Active HIGH POTENCY MULTIVITAMIN 400 mcg (2 sources) Start: 08-19-2023 HIGH POTENCY MULTIVITAMIN 400 mcg hydroCHLOROthiazide 25 mg oral tablet (11 sources) Thiazide Diuretic End: 04-06-2020 take 1 tablet by mouth once daily hydrochlorothiazide (HYDRODIURIL) 25 MG tablet Take 25 mg by mouth daily 0 04/06/2020 Discontinued (Stop Taking at Discharge) 1 ml ketorolac tromethamine 30 mg/ml cartridge (1 source) Nonsteroidal Anti-inflammatory Drug, Cyclooxygenase Inhibitor Start: 05-10-2020 End: 05-12-2020 15 mg, Intravenous, EVERY 6 HOURS, First dose on Wed05/10/20 at 1800, For 48 hours Do not administer for more than 5 days. lactulose 667 mg/ml oral solution (8 sources) Osmotic Laxative Start: 09-04-2023 lactulose 10 gram/15 mL solution Start: 08-31-2023 take 1 mL by mouth once daily Lactulose Active 10 ML PO Daily August 31, 2023 12:00am Start: 01-15-2023 take 10 mL by mouth once daily as needed Lactulose 10 GM/15ML 10ml Orally Once a day prn for 30 days Dec, Active meclizine hydrochloride 25 mg oral tablet (11 sources) Antiemetic End: 04-06-2020 take 1 tablet by mouth three times daily as needed meclizine (ANTIVERT) 25 MG tablet Take 25 mg by mouth 3 times daily as needed 0 04/06/2020 Discontinued (Stop Taking at Discharge) melatonin 10 mg disintegrating oral tablet (20 sources) Start: 09-04-2023 melatonin 10 m g ODT Start: 08-31-2023 take 1 mg by mouth at bedtime Melatonin Active 1 MG PO Bedtime August 31, 2023 12:00am Start: 05-10-2020 take 5 mg by mouth once daily 5 mg, Oral, NIGHTLY, First dose on Wed05/10/20 at 2100 take 1 tablet by hailey th every twenty-four hours Melatonin 5 MG 1 tablet in the evening Orally Once a day Active take 5 mg by mouth once daily me latonin 3 MG TABS tablet Take 5 mg by mouth nightly 0 Active meloxicam 7.5 mg oral tablet (11 sources) Nonsteroidal Anti-inflammatory Drug End: 04-06-2020 take 1 tablet by mouth once daily meloxicam (MOBIC) 7.5 MG tablet Take 7.5 mg by mouth daily 0 04/06/2020 Discontinued (Stop Taking at Discharge) 1 ml morphine sulfate 2 mg/ml injection (7 sources) Opioid Agonist Start: 05-10-2020 End: 05-10-2020 morphine 2 MG/ML injection Start: 05-10-2020 End: 05-10-2020 morphine (PF) injection 2 mg Start: 04-02-2020 End: 04-02-2020 morphine (PF) injection 2 mg Start: 03-23-2020 End: 03-23-2020 morphine injection 4 mg Start: 02-09-2020 End: 02-09-2020 morphine injection 4 mg Start: 02-09-2020 End: 02-09-2020 morphine injection 4 mg 50 ml sodium chloride 9 mg/m l injection (7 sources) Start: 05-14-2020 End: 05-14-2020 0.9 % sodium chloride bolus Start: 05-10-2020 End: 05-13-2020 Intravenous, at 50 mL/hr, CONTINUOUS, Starting Wed05/10/20 at 1615 Start: 04-03-2020 10 mL, Intrave nous, EVERY 12 HOURS SCHEDULED (2 times per day), First dose on Wed04/03/20 at 0900 Start: 04-02-2020 take 10 mL intraveno us route once as needed 10 mL, Intravenous, PRN, Line Care, After every IV line use, Starting Tu04/02/20 at 2353 Start: 04-02-2020 End: 04-02-2020 0.9 % NaCl bolus Start: 04-02-2020 End: 04-03-2020 0.9 % sodium chloride infusi on traMADol hydrochloride 50 mg oral tablet (1 source) Opioid Agonist End: 05-15-2020 take 1 tablet by mouth every eight hours as needed traMADol (ULTRAM) 50 MG tablet Take 50 mg by mouth every 8 hours as needed for Pain. Give 1/2 tab (1-5 pain) or 1 tab (6-10 pain) as needed 0 05/15/2020 Discontinued (Stop Taking at Discharge) Problems Active Problems Problem Classification Problem Date Documented Da te Episodic/Chronic Acute and unspecified renal failure (3 sources) Acute renal failure syndrome; Translations: [Acute kidney failure, unspecified] Onset: 3 09-01-2023 Episodic Anxiety disorders (17 sources) Generalized anxiety disorder; Translations: [Generalized anxiety disorder] Onset: 3 Chronic Calculus of urinary tract (12 sources) Staghorn calculus; Translations: [Calculus of kidney] Onset: 3 08-31-2023 Episodic Chronic kidney disease (20 sources) Chronic kidney disease stage 4; Translations: [Chronic kidney disease, stage 4 (severe)] Onset: 1 Chronic Chronic ulcer of skin (20 sources) Pressure ulcer of heel; Translations: [Pressure ulcer stage 3] Onset: 0 06-13-2020 Chronic Deficiency and other anemia (14 sources) Anemia of chronic disease; Translations: [Anemia in other chronic diseases classified elsewhere] Chronic Deficiency and other anemia (3 sources) Anemia in other chronic diseases classified elsewhere; Translations: [Anemia of chronic disease] Onset: 3 Chronic Delirium, dementia, and amnestic and other cognitive disorders (3 sources) Dementia; Translations: [Unspecified dementia without behavioral disturbance] Onset: 3 09-01-2023 Chronic Essential hypertension (6 sources) Hypertensive disorder; Translations: [Essential (primary) hypertension] Onset: 3 09-01-2023 Chronic Fracture of neck of femur (hip) (1 source) Closed intertrochanteric fracture; Translations: [Closed displaced intertrochanteric fracture of left femur, initial encounter ([facility])] Episodic Genitourinary symptoms and ill-defined conditions (9 sources) Urinary tract obstruction; Translations: [Obstructive and reflux uropathy, unspecified] Onset: 3 09-07-2023 Episodic Osteoarthritis (3 sources) Arthritis; Translations: [Unspecified osteoarthritis, unspecified site] Onset: 3 09-07-2023 Chronic Other connective tissue disease (1 source) History of total hip arthroplasty; Translations: [Status post total replacement of left hip] Chronic Other connective tissue disease (15 sources) Pain in left foot; Translations: [Pain in left foot] Episodic Other connective tissue disease (14 sources) Pain in limb; Translations: [Pain in left leg] Episodic Other connective tissue disease (1 source) Pain in left leg; Translations: [Leg pain, anterior, left] Episodic Other diseases of kidney and ureters (1 source) Hydronephrosis with renal and ureteral calculous obstruction; Translations: [Hydronephrosis] 09-08-2023 Episodic Other ear and sense organ disorders (1 source) Impacted cerumen, bilateral Episodic Other gastrointestinal disorders (15 sources) Slow transit constipation; Translations: [Slow transit constipation] Episodic Other gastrointestinal disorders (3 sources) Constipation; Translations: [Constipation, unspecified] Onset: 3 09-01-2023 Episodic Other gastrointestinal disorders (3 sources) Constipation, unspecified; Translations: [Constipation, unspecified] Onset: 3 08-31-2023 Episodic Other nervous system disorders (3 sources) Metabolic encephalopathy; Translations: [Metabolic encephalopathy] 09-01-2023 Chronic Other nervous system disorders (3 sources) Metabolic encephalopathy; Translations: [Metabolic encephalopathy] Onset: 3 08-31-2023 Chronic Other non-traumatic joint disorders (1 source) Pain of left hip joint; Translations: [Pain of left hip joint] Residual codes; unclassified (1 source) Hallucinations; Translations: [Hallucinations, unspecified] 08-31-2023 Episodic Residual codes; unclassified (2 sources) Hallucinations, unspecified; Translations: [Hallucinations] Onset: 3 08-31-2023 Episodic Residual codes; unclassified (1 source) Disorientation, unspecified; Translations: [Disorientation, unspecified] Onset: 3 Episodic Residual codes; unclassified (2 sources) History of operative procedure on hip; Translations: [Other specified postprocedural states] Onset: 3 09-07-2023 Episodic Residual codes; unclassified (1 source) Other specified postprocedural states; Translations: [Status post hip surgery] Onset: 3 Episodic Retinal detachments; defects; vascular occlusion; and retinopathy (15 sources) Degenerative disorder of macula ; Translations: [Unspecified macular degeneration] Chronic Skin and subcutaneous tissue infections (20 sources) Cellulitis of right upper limb; Translations: [Cellulitis of right upper limb] Onset: 0 04-03-2020 Urinary tract infections (20 sources) Bacterial urinary infection; Translations: [Bacteriuria] Onset: 0 04-03-2020 Episodic Urinary tract infections (1 source) Urinary tract infections; Translations: [Urinary tract infection, site not specified] Onset: 3 Past or Other Problems Problem Classification Problem Date Documented Date Episodic/Chronic Fluid and electrolyte disorders (20 sources) Hypokalemia; Translations: [Hypokalemia] Onset: 04-02-2020 04-02-2020 Episodic Malaise and fatigue (20 sources) Asthenia; Translations: [Malaise] Onset: 04-02-2020 04-02-2020 Episodic Other fractures (20 sources) Periprosthetic fracture; Translations: [Periprosthetic fracture around other internal prosthetic joint, initial encounter] Onset: 05-10-2020 05-10-2020 Episodic Skin and subcutaneous tissue infections (2 sources) Cellulitis of right upper limb; Translations: [Cellulitis of right upper limb] Onset: 04-02-2020 04-03-2020 Episodic Results Test Name Value Interpretation Reference [facility] CNPS[facility]ita Telephone (UROLMN) OVIDIOMEENU ([id number]) 1935 F Date Time Provider Department 09/29/23 MONI CHAUDHARI During your visit today, we recorded the following information about you: Moni Chaudhari RN 09/29/2023 8:26 AM Signed Called patient to inform her of the following information below per Dr. Garland regarding her antibiotic. No answer, LVM with phone number to return call. Moni Chaudhari RN September 29, 2023 8:26 AM Ricco Garland MD Olah, Shawna, RN I ordered Keflex suppression to begin 1 week prior to surgery (starting much sooner would select for resistant bacteria). Please call her and let her know I sent a script to her pharmacy for the Keflex to start taking about a week prior to surgery. Thanks very much. Moni Chaudhari RN 09/29/2023 11:20 AM Signed Called patients daughter to inform her of below information. No answer, LVM with phone number to return call. Moni Chaudhari RN September 29, 2023 11:20 AM Allergies As of Date: 09/29/2023 (No Known Allergies) Date Reviewed: 09/23/2023 Reviewed by: Ulises Ocampo APRN.VEHICLE REFINISHER, DNP - Fully Assessed Prescriptions as of 09/29/2023 - cephALEXin (KEFLEX) 250 mg capsule Take 1 capsule by mouth three times a day. Begin taking this medicine 1 week before kidney stone surgery. - VITAMIN C 500 mg tablet - busPIRone (BUSPAR) 10 mg tablet - calcitriol (ROCALTROL) 0.25 mcg capsule Take 0.25 mcg by mouth. - calcium acetate (CALPHRON) 667 mg tablet - docusate sodium (COLACE) 100 mg capsule Take 100 mg by mouth. - ferrous sulfate 325 mg (65 mg iron) tablet - furosemide (LASIX) 20 mg tablet Take 20 mg by mouth. - hydrALAZINE (APRESOLINE) 25 mg tablet Take 25 mg by mouth. - LORazepam (ATIVAN) 0.5 mg Take 0.5 mg by mouth every 6 hours as needed. - melatonin 10 mg ODT - polyethylene glycol 3350 17 gram packet Take 17 g by mouth. - pravastatin (PRAVACHOL) 10 mg tablet Take 10 mg by mouth. - verapamil SR (CALAN SR) 180 mg CR tablet Take 180 mg by mouth. - diclofenac (VOLTAREN) 1 % topical gel - HYDROcodone-Acetaminop hen (NORCO) 10-325 mg per tablet - lactulose 10 gram/15 mL solution - HIGH POTENCY MULTIVITAMIN 400 mcg - estradiol (ESTRACE) 0.01 % (0.1 mg/gram) vaginal cream Use 1 g vaginally one time a week. Problem List As Of Date 09/29/2023 Noted Resolved Abnormal urinalysis [R82.90] 09/07/2023 History of recurrent UTIs [Z87.440] 09/07/2023 Staghorn calculus [N20.0] 09/07/2023 Essential hypertension [I10] 09/07/2023 Constipation [K59.00] 09/07/2023 Arthritis [M19.90] 09/07/2023 Status post hip surgery [Z98.890] 09/07/2023 Stage 4 chronic kidney disease (HCC) [N18.4] 04/12/2021 Generalized anxiety disorder [F41.1] 09/23/2023 Hallucinations [R44.3] 09/01/2023 Hypokalemia [E87.6] 09/23/2023 Anemia of chronic disease [D63.8] 09/23/2023 Pre-op evaluation [Z01.818] 09/23/2023 Encounter Status:Closed by MONI CHAUDHARI on 09/29/23 Normal [facility] Bacteria Ur Culton 3 Bacteria identified Cx Nom (U) ORGANISM ID: 1 10,000 -<50,000 CFU/ml Proteus mirabilis ORGANISM ID: 2 <10,000 CFU/ml Normal urogenital jeff ORGANISM ID: 1 (PROTEUS MIRABILIS) -- ANTIBIOTIC INTERPRETATION ALAN STATUS REFERENCE RANGE -- Ampicillin S <=2 F Susceptible <=8 , Intermediate >8 , Resistant >16 Cefazolin S <=4 F Susceptible 0-16 , Intermediate <0 or >16 , Resistant >16 For uncomplicated urinary tract infections, cefazolin results can be used to predict susceptibility or resistance to cephalexin. Ceftriaxone S <=1 F Susceptible <=1 , Intermediate >1 , Resistant >=4 Cefepime S <=1 F Susceptible <=2 , Susceptible-Dose Dependent >2 , Resistant >=16 Ertapenem S <=0.5 F Susceptible <=0.5 , Intermediate >.5 , Resistant >1 Meropenem S <=0.25 F Susceptible <=1 , Intermediate >1 , Resistant >2 Ampicillin/Sulbact S <=2 F Susceptible <=8 , Intermediate >8 , Resistant >16 Piperacillin/Tazobac S <=4 F Susceptible <=16 , Intermediate >16 , Resistant >64 Gentamicin S <=1 F Susceptible <=4 , Intermediate >4 , Resistant >8 Tobramycin S <=1 F Susceptible <=4 , Intermediate >4 , Resistant >8 Trimeth sulfameth R >=320 F Susceptible <=40 , Resistant >40 Ciprofloxacin R >=4 F Susceptible <0.5 , Intermediate >=.5 , Resistant >=1 Nitrofurantoin R 128 F Susceptible <=32 , Intermediate >32 , Resistant >64 Abnormal [facility] Comment on above: Performed By: #### 6 30-4 ####[facility] [id number] [place] [address] [place] CBC W Auto Differential pane l (Bld)on 09-23-2023 Basophils (Bld) [#/Vol] 10*3/uL Normal <0.11 [facility] Comment on above: Order Comment: Speci men Type: BLOOD SPECIMEN Ordering Facility: [facility] Address: [address] [place] [address] Performed By: #### 5 7021-8 #### [facility] CLIA [id number] [address] [place] [address] [place] Basophils/100 WBC (Bld) 0.3 % Normal [facility] Comment on above: Order Comment: Speci men Type: BLOOD SPECIMEN Ordering Facility: [facility] Address: [address] [place] [address] Performed By: #### 5 7021-8 #### [facility] CLIA [id number] [address] [place] [address] [place] Differential cell count method Nom (Bld) Auto Normal [facility] Comment on above: Order Comment: Speci men Type: BLOOD SPECIMEN Ordering Facility: [facility] Address: [address] [place] [address] Performed By: #### 5 7021-8 #### [facility] CLIA [id number] [address] [place] [address] [place] Eosinophils (Bld) [#/Vol] 0.16 10*3/uL Normal <0.46 [facility] Comment on above: Order Comment: Speci men Type: BLOOD SPECIMEN Ordering Facility: [facility] Address: [address] [place] [address] Performed By: #### 5 7021-8 #### [facility] CLIA [id number] [address] [place] [address] [place] Eosinophils/100 WBC (Bld) 2.2 % Normal [facility] Comment on above: Order Comment: Speci men Type: BLOOD SPECIMEN Ordering Facility: [facility] Address: [address] [place] [address] Performed By: #### 5 7021-8 #### [facility] CLIA [id number] [address] [place] [address] [place] Erythrocyte distribution width (RBC) [Ratio] 14.0 % Normal 11.5-15.0 [facility] Comment on above: Order Comment: Speci men Type: BLOOD SPECIMEN Ordering Facility: [facility] Address: [address] [place] [address] Performed By: #### 5 7021-8 #### [facility] CLIA [id number] [address] [place] [address] [place] Hematocrit (Bld) [Volume fraction] 39.8 % Normal 36.0-46.0 [facility] Comment on above: Order Comment: Speci men Type: BLOOD SPECIMEN Ordering Facility: [facility] Address: [address] [place] [address] Performed By: #### 5 7021-8 #### [facility] CLIA [id number] [address] [place] [address] [place] Hemoglobin (Bld) [Mass/Vol] 12.6 g/dL Normal 11.5-15.5 [facility] Comment on above: Order Comment: Speci men Type: BLOOD SPECIMEN Ordering Facility: [facility] Address: [address] [place] [address] Performed By: #### 5 7021-8 #### [facility] CLIA [id number] [address] [place] [address] [place] Immature granulocytes (Bld) [#/Vol] 10*3/uL Normal <0.10 [facility] Comment on above: Order Comment: Speci men Type: BLOOD SPECIMEN Ordering Facility: [facility] Address: [address] [place] [address] Performed By: #### 5 7021-8 #### [facility] CLIA [id number] [address] [place] [address] [place] Immature granulocytes/100 WBC (Bld) 0.1 % Normal [facility] Comment on above: Order Comment: Speci men Type: BLOOD SPECIMEN Ordering Facility: [facility] Address: [address] [place] [address] Performed By: #### 5 7021-8 #### [facility] CLIA [id number] [address] [place] [address] [place] Lymphocytes (Bld) [#/Vol] 2.33 10*3/uL Normal 1.00-4.00 [facility] Comment on above: Order Comment: Speci men Type: BLOOD SPECIMEN Ordering Facility: [facility] Address: [address] [place] [address] Performed By: #### 5 7021-8 #### [facility] CLIA [id number] [address] [place] [address] [place] Lymphocytes/100 WBC (Bld) 31.4 % Normal [facility] Comment on above: Order Comment: Speci men Type: BLOOD SPECIMEN Ordering Facility: [facility] Address: [address] [place] [address] Performed By: #### 5 7021-8 #### [facility] CLIA [id number] [address] [place] [address] [place] MCH (RBC) [Entitic mass] 31.7 pg Normal 26.0-34.0 [facility] Comment on above: Order Comment: Speci men Type: BLOOD SPECIMEN Ordering Facility: [facility] Address: [address] [place] [address] Performed By: #### 5 7021-8 #### [facility] CLIA [id number] [address] [place] [address] [place] MCHC (RBC) [Mass/Vol] 31.7 g/dL Normal 30.5-36.0 [facility] Comment on above: Order Comment: Speci men Type: BLOOD SPECIMEN Ordering Facility: [facility] Address: [address] [place] [address] Performed By: #### 5 7021-8 #### [facility] CLIA [id number] [address] [place] [address] [place] MCV (RBC) [Entitic vol] 100.3 fL High 80.0-100.0 [facility] Comment on above: Order Comment: Speci men Type: BLOOD SPECIMEN Ordering Facility: [facility] Address: [address] [place] [address] Performed By: #### 5 7021-8 #### [facility] CLIA [id number] [address] [place] [address] [place] Monocytes (Bld) [#/Vol] 0.77 10*3/uL Normal <0.87 [facility] Comment on above: Order Comment: Speci men Type: BLOOD SPECIMEN Ordering Facility: [facility] Address: [address] [place] [address] Performed By: #### 5 7021-8 #### [facility] CLIA [id number] [address] [place] [address] [place] Monocytes/100 WBC (Bld) 10.4 % Normal [facility] Comment on above: Order Comment: Speci men Type: BLOOD SPECIMEN Ordering Facility: [facility] Address: [address] [place] [address] Performed By: #### 5 7021-8 #### [facility] CLIA [id number] [address] [place] [address] [place] Neutrophils (Bld) [#/Vol] 4.14 10*3/uL Normal 1.45-7.50 [facility] Comment on above: Order Comment: Speci men Type: BLOOD SPECIMEN Ordering Facility: [facility] Address: [address] [place] [address] Performed By: #### 5 7021-8 #### [facility] CLIA [id number] [address] [place] [address] [place] Neutrophils/100 WBC (Bld) 55.6 % Normal [facility] Comment on above: Order Comment: Speci men Type: BLOOD SPECIMEN Ordering Facility: [facility] Address: [address] [place] [address] Performed By: #### 5 7021-8 #### [facility] CLIA [id number] [address] [place] [address] [place] Nucleated RBC (Bld) [#/Vol] 10*3/uL Normal <0.01 [facility] Comment on above: Order Comment: Speci men Type: BLOOD SPECIMEN Ordering Facility: [facility] Address: [address] [place] [address] Performed By: #### 5 7021-8 #### [facility] CLIA [id number] [address] [place] [address] [place] Nucleated RBC/100 WBC (Bld) [Ratio] 0.0 /100 WBC Normal [facility] Comment on above: Order Comment: Speci men Type: BLOOD SPECIMEN Ordering Facility: [facility] Address: [address] [place] [address] Performed By: #### 5 7021-8 #### [facility] CLIA [id number] [address] [place] [address] [place] Platelet mean volume (Bld) [Entitic vol] 10.3 fL Normal 9.0-12.7 [facility] Comment on above: Order Comment: Speci men Type: BLOOD SPECIMEN Ordering Facility: [facility] Address: [address] [place] [address] Performed By: #### 5 7021-8 #### [facility] CLIA [id number] [address] [place] [address] [place] Platelets (Bld) [#/Vol] 228 10*3/uL Normal 150-400 [facility] Comment on above: Order Comment: Speci men Type: BLOOD SPECIMEN Ordering Facility: [facility] Address: [address] [place] [address] Performed By: #### 5 7021-8 #### [facility] CLIA [id number] [address] [place] [address] [place] RBC (Bld) [#/Vol] 3.97 10*6/uL Normal 3.90-5.20 [facility] Comment on above: Order Comment: Speci men Type: BLOOD SPECIMEN Ordering Facility: [facility] Address: [address] [place] [address] Performed By: #### 5 7021-8 #### [facility] CLIA [id number] [address] [place] [address] [place] WBC (Bld) [#/Vol] 7.43 10*3/uL Normal 3.70-11.00 [facility] Comment on above: Order Comment: Speci men Type: BLOOD SPECIMEN Ordering Facility: [facility] Address: [address] [place] [address] Performed By: #### 5 7021-8 #### [facility] CLIA [id number] [address] [place] [address] [place] CONFIRM BLOOD TYPEon 12-28-2 023 ABO A Normal [facility] Comment on above: Order Comment: Speci men Type: BLOOD SPECIMEN Ordering Facility: [facility] Address: [address] [place] [address] Performed By: #### C ONABO #### [facility] CLIA [id number] [address] [place] [address] [place] Rh Nom (Bld) Positive Normal [facility] Comment on above: Order Comment: Speci men Type: BLOOD SPECIMEN Ordering Facility: [facility] Address: [address] [place] [id number] Performed By: #### C ONAB #### [facility] CLIA [id number] [address] [place] [address] [place] Comprehensive metabolic 2000 panelon 09-23-2023 Albumin [Mass/Vol] 4.3 g/dL Normal 3.9-4.9 [facility] Comment on above: Order Comment: Speci men Type: BLOOD SPECIMEN Ordering Facility: [facility] Address: [address] [place] [address] Performed By: #### 2 4323-8 #### [facility] CLIA [id number] [address] [place] [address] [place] ALP [Catalytic activity/Vol] 96 U/L Normal 34-123 [facility] Comment on above: Order Comment: Speci men Type: BLOOD SPECIMEN Ordering Facility: [facility] Address: [address] [place] [id number] Performed By: #### 2 4323-8 #### [facility] CLIA [id number] [address] [place] [address] [place] ALT [Catalytic activity/Vol] 17 U/L Normal 7-38 [facility] Comment on above: Order Comment: Speci men Type: BLOOD SPECIMEN Ordering Facility: [facility] Address: [address] [place] [address] Performed By: #### 2 4323-8 #### [facility] CLIA [id number] [address] [place] [id number] [place] Anion gap [Moles/Vol] 15 mmol/L Normal 9-18 [facility] Comment on above: Order Comment: Speci men Type: BLOOD SPECIMEN Ordering Facility: [facility] Address: [address] [place] [id number] Performed By: #### 2 4323-8 #### [facility] CLIA [id number] [address] [place] [id number] [place] AST [Catalytic activity/Vol] 22 U/L Normal 13-35 [facility] Comment on above: Order Comment: Speci men Type: BLOOD SPECIMEN Ordering Facility: [facility] Address: [address] [place] [address] Performed By: #### 2 4323-8 #### [facility] CLIA [id number] [address] [place] [address] [place] Bilirubin [Mass/Vol] 0.3 mg/dL Normal 0.2-1.[address] [facility] Comment on above: Order Comment: Speci men Type: BLOOD SPECIMEN Ordering Facility: [facility] Address: [address] [place] [address] Performed By: #### 2 4323-8 #### [facility] CLIA [id number] [address] [place] [address] [place] Calcium [Mass/Vol] 9.4 mg/dL Normal 8.5-10.2 [facility] Comment on above: Order Comment: Speci men Type: BLOOD SPECIMEN Ordering Facility: [facility] Address: [address] [place] [address] Performed By: #### 2 4323-8 #### [facility] CLIA [id number] [address] [place] [address] [place] Chloride [Moles/Vol] 103 mmol/L Normal 97-[address] [facility] Comment on above: Order Comment: Speci men Type: BLOOD SPECIMEN Ordering Facility: [facility] Address: [address] [place] [address] Performed By: #### 2 4323-8 #### [facility] CLIA [id number] [address] [place] [address] [place] CO2 [Moles/Vol] 26 mmol/L Normal 22-30 [facility] Comment on above: Order Comment: Speci men Type: BLOOD SPECIMEN Ordering Facility: [facility] Address: [address] [place] [address] Performed By: #### 2 4323-8 #### [facility] CLIA [id number] [address] [place] [address] [place] Creatinine [Mass/Vol] 2.05 mg/dL High 0.58-0.96 [facility] Comment on above: Order Comment: Lalo men Type: BLOOD SPECIMEN Ordering Facility: [facility] Address: [address] [place] [address] Performed By: #### 2 4323-8 #### [facility] CLIA [id number] [address] [place] [address] [place] Creatinine and Glomerular filtration rate.predicted panel (S/P/Bld) 23 mL/min/1.73m??? Low >=60 [facility] Comment on above: Order Comment: Lalo mclaughlin Type: BLOOD SPECIMEN Ordering Facility: [facility] Address: [address] [place] [address] Result Comment: Melissa mated Glomerular Filtration Rate (eGFR) is calculated using the 2020 CKD-EPI creatinine equation. This equation utilizes serum creatinine, sex, and age as parameters. The creatinine assay has traceable calibration to isotope dilution-mass spectrometry. Refer to KDIGO guidelines for clinical interpretation. In patients with unstable renal function, e.g. those with acute kidney injury, the eGFR may not accurately reflect actual GFR. Performed By: #### 2 4323-8 #### [facility] CLIA [id number] [address] [place] [address] [place] Glucose [Mass/Vol] 107 mg/dL High 74-99 [facility] Comment on above: Order Comment: Lalo mclaughlin Type: BLOOD SPECIMEN Ordering Facility: [facility] Address: [address] [place] [address] Result Comment: The [place] [employer] (ADA) provides guidance for cutoff values for fasting glucose and random glucose. The ADA defines fasting as no caloric intake for at least 8 hours. Fasting plasma glucose results between 100 to 125 mg/dL indicate increased risk for diabetes (prediabetes). Fasting plasma glucose results greater than or equal to 126 mg/dL meet the criteria for diagnosis of diabetes. In the absence of unequivocal hyperglycemia, results should be confirmed by repeat testing. In a patient with classic symptoms of hyperglycemia or hyperglycemic crisis, random plasma glucose results greater than or equal to 200 mg/dL meet the criteria for diagnosis of diabetes. Reference: Standards of Medical Care in Diabetes 2016, [place] [employer]. Diabetes Care. 2016.39(Suppl 1). Performed By: #### 2 4323-8 #### [facility] CLIA [id number] [address] [place] [address] [place] Potassium [Moles/Vol] 4.0 mmol/L Normal 3.7-5.1 [facility] Comment on above: Order Comment: Speci men Type: BLOOD SPECIMEN Ordering Facility: [facility] Address: [address] [place] [address] Performed By: #### 2 4323-8 #### [facility] CLIA [id number] [address] [place] [address] [place] Protein [Mass/Vol] 7.0 g/dL Normal 6.3-8.0 [facility] Comment on above: Order Comment: Venkati men Type: BLOOD SPECIMEN Ordering Facility: [facility] Address: [address] [place] [address] Performed By: #### 2 4323-8 #### [facility] CLIA [id number] [address] [place] [address] [place] Sodium [Moles/Vol] 144 mmol/L Normal 136-144 [facility] Comment on above: Order Comment: Speci men Type: BLOOD SPECIMEN Ordering Facility: [facility] Address: [address] [place] [address] Performed By: #### 2 4323-8 #### [facility] CLIA [id number] [address] [place] [id number] [place] Urea nitrogen [Mass/Vol] 30 mg/dL High 7-21 [facility] Comment on above: Order Comment: Speci men Type: BLOOD SPECIMEN Ordering Facility: [facility] Address: [address] [place] [address] Performed By: #### 2 4323-8 #### [facility] CLIA [id number] [address] [facility] [id number] [address] [place] ECG COMPLETEon 09-23-2023 ECG COMPLETE Ventricular Rate : 7 5 BPM Atrial Rate : 75 BPM QRS Duration : 108 ms Q-T Interval : 410 ms QTC Calculation(Bazett) : 457 ms Calculated R Mobile : -32 degrees Calculated T Mobile : 97 degrees 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 , 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 ECG Reconfirmed by KIAN CLARK MD ([id number]) on 09/23/2023 8:45:27 PM NAME : MEENU NOLAN PID : [id number] : 1935 Gender : Female Race : ORD : [id number] Procedure Date : Sep 23 2023 12:56:29 Edit Date : Sep 23 2023 20:45:28 Diagnosis: 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 , 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 ECG Reconfirmed by KIAN CLARK MD ([id number]) on 09/23/2023 8:45:27 PM Test Reason : Location : 119 : A17 Overread By : KIAN CLARK MD Edited By : KIAN CLARK MD Referred By : , Acquired by : SANTI TAVERA [facility] HISTORY PHYSICALon HISTORY PHYSICAL HNO ID: [id number] Author: Ulises Ocampo APRN.VEHICLE REFINISHER, DNP Service: ? Author Type: Nurse Practitioner Type: HANDP Filed: 09/24/2023 8:47 AM Note Text: HISTORY AND PHYSICAL EXAMINATION SERVICE DATE: 09/23/2023 SERVICE TIME: 8:44 AM PRIMARY CARE PHYSICIAN: Brina Cordero MD Assessment Patient has the following medical conditions which may affect corrine-operative course: Essential hypertension - Stable, complaint on Verapamil, hydralazine. Follows with PCP. - Patient reports anxiety related to diagnosis and visit. - She and daughter are encouraged to follow up with PCP if BP in a normal setting is consistently above 140/90 for better management. They are agreeable. Last 3 Encounter BP Readings: Date: BP: 09/23/2023 170/53 09/07/2023 167/67 Stage 4 chronic kidney disease (HCC) - follows with nephrology. Managed with Lasix. - Follows nephrology. BMP Latest Ref Rng AND Units 09/23/2023 GLUCOSE 74 - 99 mg/dL 107(H) BUN 7 - 21 mg/dL 30(H) CREATININE 0.58 - 0.96 mg/dL 2.05(H) SODIUM 136 - 144 mmol/L 144 POTASSIUM 3.7 - 5.1 mmol/L 4.0 CHLORIDE 97 - 105 mmol/L 103 CO2 22 - 30 mmol/L 26 ANION GAP 9 - 18 mmol/L 15 CALCIUM, TOTAL 8.5 - 10.2 mg/dL 9.4 eGFR >=60 mL/min/1.73m? 23(L) Generalized anxiety disorder - Patient is on Buspar. Anemia of chronic disease - Controlled on iron supplements. Follows with PCP. Hemoglobin (g/dL) Date Value 09/23/2023 12.6 Hematocrit (%) Date Value 09/23/2023 39.8 WBC (k/uL) Date Value 09/23/2023 7.43 Platelet Count (k/uL) Date Value 09/23/2023 228 Constipation - Managed with Miralax and colace. Rosenberg Activity Status Index: METS: Walk indoors, such as around the house (1.75 METs) Take care of self; that is eating, dressing, bathing, using the toilet (2.75 METs) Cannot do light work around the house, such as dusting or washing dishes DASI Score: 4.5 (Pivots from chair to bed with help) Patient is limited most or all of the time (uses scooter, mobility device). Clinical Frailty Scale: 4. Apparently vulnerable STOP-Bang Score: Patient over 50 years old BMI less than or equal to 35 kg/m2 Non-male patient STOP-Bang Score: 1 [id number] Score: Hypertension history: Yes [id number] Score: 1 ARISCAT Score: Age: >80 Preoperative SpO2: >=96% Preoperative anemia: No Duration of surgery: 2-3 hrs Emergency procedure: No ARISCAT Score: ANESTHESIA FINDINGS: Intubation History: No abnormal airway history Significant Anesthesia Considerations: Hallunication post anesthesia. Will need use of a vein finder. potential difficult IV/vein access Airway History: No abnormal airway history I - PHYSICAL EVALUATION AIRWAY Patient intubated: No. Tracheostomy tube not present Mallampati: III. TM distance: >3 FB. Neck ROM: full ROM without neurological symptoms. Mouth opening: adequate. Short neck: no. Thick neck: no Romero present: no Lip Bite Test: I Microretrognathia/Micr onagthia/Recessed Chin: No DENTAL Dentures, upper: complete. Dentures, lower: complete. II - ANESTHESIA PLAN Anesthetic plan additional comments: *[facility] - anesthesia choice. Beta Ellie Monitoring Plan Post Procedure Analgesic Plan REASON FOR VISIT: Meenu Nolan is a 88 year old female who is scheduled for Procedure(s): PERC NEPHROLITHOTOMY LITHOTRIPSY,STONE EXTRACTION,ANTEGRADE URETEROSCOPY,STENT PLACEMENT WHEN PERFORMED INCD IMAGING UP TO 2cm (Left) at the request of Ricco Schrader MD for consultation. My final recommendation will be communicated back to the requesting physician by way of shared medical record or letter. Subjective The patient has the following: ACTIVE PROBLEM LIST Abnormal Urinalysis History of Recurrent Utis Staghorn Calculus Essential Hypertension Constipation Arthritis Status Post Hip Surgery Stage 4 Chronic Kidney Disease (Hcc) Generalized Anxiety Disorder Hallucinations Hypokalemia Anemia of Chronic Disease Pre-Op Evaluation COVID-19 Immunization Status Overdue - Covid-19 Vaccine (1) Never done No completion, postpone, frequency change, or communication history exists for this topic. CHIEF COMPLAINT: preop evaluation HPI: Mr. Meenu Nolan is a 88 year old female with left staghorn calculus who presents to [facility] today for preop exam. She reports intermittent LEFT flank pain and frequent UTIs. Patient is scheduled for the above procedure on 10/18/2022. Denies fevers, chills, chest pain, and SOB. REVIEW OF SYSTEMS: General: No weight loss, malaise or fevers. Neurological: No history of TIA's, stroke, ANIMAL NURSE tumor, impaired sensorium, hemiplegia, paraplegia or quadraplegia. No neurological symptoms or problems. Respiratory: No history of current cough or dyspnea, or pneumonia in the past 6 weeks. No history of respiratory/pulmonary symptoms or problems. Cardiovascular: Positive for: hypertension (on rx) Negative for: abdominal aortic (more content not included)... Normal [facility] TYPE AND SCREEN,30 DAYon ABO A Normal [facility] Comment on above: Order Comment: Speci men Type: BLOOD SPECIMEN Ordering Facility: [facility] Address: [address] [place] [address] Performed By: #### T [id number] #### [facility] CLIA [id number] [address] [place] [address] [place] HISTORICAL AB SCR STATUS Negative Normal [facility] Comment on above: Order Comment: Speci men Type: BLOOD SPECIMEN Ordering Facility: [facility] Address: [address] [place] [address] Performed By: #### T [id number] #### [facility] CLIA [id number] [address] [place] [address] [place] Rh Nom (Bld) Positive Normal [facility] Comment on above: Order Comment: Speci men Type: BLOOD SPECIMEN Ordering Facility: [facility] Address: [address] [place] [address] Performed By: #### T [id number] #### [facility] CLIA [id number] [address] [place] [address] [place] Consultation Noteon 09-12-20 23 Consultation Note [id number]#1.0 0TIFF Normal [facility] Bacteria Ur Culton 3 Bacteria identified Cx Nom (U) CULTURE, URINE: No growth (<1,000 CFU/ml) Normal [facility] Comment on above: Performed By: #### 6 30-4 #### [facility] CLIA [id number] [address] [place] [address] [place] CNOVon 09-07-2023 CNOV Office Visit (UROLMN ) MEENU NOLAN ([id number]) 1935 F Date Time Provider Department 09/07/23 10:00 AM RICCO GARLAND During your visit today, we recorded the following information about you: Pulse Blood pressure 57/minute 167/67 Ricco Garland MD 09/07/2023 7:45 PM Signed STAFF UROLOGY NOTE: We had the pleasure of seeing Meenu Nolan in our [facility] today. She is with her daughter who did nearly all the talking since the patient's hearing aids are broken and she has not yet received new ones, so she could hardly hear me. Though not listed in [facility], patient's daughter indicates Dr. Harsh Clayton recommended they come see me for consultation and treatment regarding her left staghorn calculus. My final recommendations will be communicated back to the requesting physician by way of shared Medical record or letter to requesting physician via [place] mail. She is a pleasant 88 year old female who first had a stone episode a number of years ago but there are no records available in this regard. She has been experiencing recurring UTI's with malaise, low-grade fevers, and confusion as we see in older patients at times, with this type of presentation. These episodes have required hospitalizations. She has grown Proteus in the past according to her few records that I can access in Care Everywhere, suggesting the left staghorn is an infection stone. The patient has no significant incontinence and feels she empties completely. Daughter believes ultrasound PVR has been done but again, we don't have records. Outside CT is available. Patient has chronic renal insufficiency of unknown etiology, according to daughter. Creatinine runs in the 2.2 range according to recent chemistries. She has not had a prior 24-hour urine metabolic evaluation. She has had 0 shockwave lithotripsies, ? 2 ureteroscopies and 0 percutaneous nephrolithotomies She was counseled on the most recent imaging studies. CT Scan Imaging Date: 08/31/23 Stone Side Location Length (mm) Width (mm) HU STSD 1 Left kidney staghorn 41 35 655 2 3 4 5 Renal US or KUB Imaging Date: Stone Side Location Length (mm) Width (mm) 1 2 3 4 5 She was counseled on the options of: 1. Observation - risks including stone growth, stone movement, pain, impact on renal function. Chance of spontaneous stone passage of the largest stone: 0% 2. Shockwave lithotripsy - risks of bleeding (1 in 1000 severe bleed), residual fragments, need for a secondary procedure. Success based on size, location, hounsfield units and eytb-tg-fgrjn distance: 0% 3. Ureteroscopy - risks of UTI, ureteral injury (1 in 1000 severe injury requiring major surgery), morbidity from ureteral stent Success: 0% 4. PCNL - risks of lung injury (1%), transfusion (5%), embolization (1%), injury to other organs, need for secondary procedure. Success: 95% Imp: The primary encounter diagnosis was Staghorn calculus. Diagnoses of Abnormal urinalysis, History of recurrent UTIs, Essential hypertension, Constipation, unspecified constipation type, Arthritis, and Status post hip surgery were also pertinent to this visit. Plan: Based on this discussion, she wishes to undergo left PCNL. We will get a nuclear renal scan to assess pre-op baseline renal function. Culture ordered to determine sensitivities. Start some Estrace Cream (daughter agrees this would be easier than a Vagifem insert). There is no prior hx of female malignancies. I did explain that removing the stone might not prevent UTI's if as I suspect there is also a lower urinary tract component and also, we might not be able to remove all the stone although we of course try. Note: Patient uses a walker and can transfer -- prior hip surgeries and arthritis have left her LE weak. I spent >65 minutes in this visit (including reviewing x-rays and records plus patient discussion), with more than 50% of the total voyj-pa-yrzi time of the visit devoted to patient counseling/coordinatio n of care. Ricco Garland MD, FACS Director, Surgical Stone Disease, [facility] [place] system support technician, [facility] [employer] Pager [phone] 09/07/2023 Referring Provider: SELF [200] Allergies As of Date: 09/07/2023 (No Known Allergies) Date Reviewed: 09/07/2023 Reviewed by: Karen Calvillo OCCA - Fully Assessed Primary Visit Diagnosis:Staghorn calculus [N20.0] Other Visit Diagnoses:Abnormal urinalysis [R82.90] History of recurrent UTIs [Z87.440] Essential hypertension [I10] Constipation, unspecified constipation type [K59.00] Arthritis [M19.90] Status post hip surgery [Z98.890] Order(s):URINE CULTURE [SQURCUL] Order #: [id number]. #:[id number] estradiol (ESTRACE) 0.01 % (0.1 mg/gram) vaginal creamUse 1 g vaginally one time a week.Disp: 42 gRfl: 1 Prescriptions (more content not included)... Normal [facility] URINALYSIS, REFLEX MICROSCOP ICon 09-07-2023 Bacteria LM.HPF (Urine sed) [#/Area] Few Abnormal None Seen [facility] Comment on above: Order Comment: Speci men Type: URINE SPECIMEN Ordering Facility: [facility] Address: [address] [place] [address] Performed By: #### L [id number] #### [facility] CLIA [id number] [address] [place] [address] [place] Bilirubin Ql (U) Negative Normal Negative [facility] Comment on above: Order Comment: Speci men Type: URINE SPECIMEN Ordering Facility: [facility] Address: [address] [place] [address] Performed By: #### L [id number] #### [facility] CLIA [id number] [address] [place] [address] [place] Clarity (Unsp spec) Clear Normal Clear [facility] Comment on above: Order Comment: Speci men Type: URINE SPECIMEN Ordering Facility: [facility] Address: [address] [place] [address] Performed By: #### L [id number] #### [facility] CLIA [id number] [address] [place] [address] [place] Color (U) Light Yellow Normal Yellow [facility] Comment on above: Order Comment: Speci men Type: URINE SPECIMEN Ordering Facility: [facility] Address: [address] [place] [address] Performed By: #### L [id number] #### [facility] CLIA [id number] [address] [place] [address] [place] Epithelial cells LM.HPF (Urine sed) [#/Area] Few Normal [facility] Comment on above: Order Comment: Speci men Type: URINE SPECIMEN Ordering Facility: [facility] Address: [address] [place] [address] Performed By: #### L [id number] #### [facility] CLIA [id number] [address] [place] [address] [place] Glucose Test strip (U) [Mass/Vol] Negative Normal Trace, Negative [facility] Comment on above: Order Comment: Speci men Type: URINE SPECIMEN Ordering Facility: [facility] Address: [address] [place] [address] Performed By: #### L [id number] #### [facility] CLIA [id number] [address] [place] [address] [place] Hemoglobin Ql (U) Negative Normal Negative, Trace [facility] Comment on above: Order Comment: Speci men Type: URINE SPECIMEN Ordering Facility: [facility] Address: [address] [place] [address] Performed By: #### L [id number] #### [facility] CLIA [id number] [address] [place] [address] [place] Hyaline casts (Urine sed) [#/Area] 1-3 /LPF Abnormal 0 /LPF [facility] Comment on above: Order Comment: Speci men Type: URINE SPECIMEN Ordering Facility: [facility] Address: [address] [place] [address] Performed By: #### L [id number] #### [facility] CLIA [id number] [address] [place] [address] [place] Ketones Ql (U) Negative Normal Negative, Trace [facility] Comment on above: Order Comment: Speci men Type: URINE SPECIMEN Ordering Facility: [facility] Address: [address] [place] [address] Performed By: #### L [id number] #### [facility] CLIA [id number] [address] [place] [address] [place] Leukocyte esterase Test strip Ql (U) 500 Dorian/uL Abnormal Negative, 25 Dorian/uL [facility] Comment on above: Order Comment: Speci men Type: URINE SPECIMEN Ordering Facility: [facility] Address: [address] [place] [address] Performed By: #### L [id number] #### [facility] CLIA [id number] [address] [place] [address] [place] Nitrite Ql (U) Negative Normal Negative [facility] Comment on above: Order Comment: Speci men Type: URINE SPECIMEN Ordering Facility: [facility] Address: [address] [place] [address] Performed By: #### L [id number] #### [facility] CLIA [id number] [address] [place] [address] [place] pH (U) 5.5 [pH] Normal 5.0-8.0 [facility] Comment on above: Order Comment: Speci men Type: URINE SPECIMEN Ordering Facility: [facility] Address: [address] [place] [address] Performed By: #### L [id number] #### [facility] CLIA [id number] [address] [place] [address] [place] Protein (U) [Mass/Vol] Trace Normal Trace , Negative [facility] Comment on above: Order Comment: Speci men Type: URINE SPECIMEN Ordering Facility: [facility] Address: [address] [place] [address] Performed By: #### L [id number] #### [facility] CLIA [id number] [address] [place] [address] [place] RBC LM.HPF (Urine sed) [#/Area] 3-5 /HPF Abnormal 0-3 /HPF [facility] Comment on above: Order Comment: Speci men Type: URINE SPECIMEN Ordering Facility: [facility] Address: [address] [place] [address] Performed By: #### L [id number] #### [facility] CLIA [id number] [address] [place] [address] [place] Specific gravity (U) [Rel density] 1.014 Normal 1.005-1.030 [facility] Comment on above: Order Comment: Speci men Type: URINE SPECIMEN Ordering Facility: [facility] Address: [address] [place] [address] Performed By: #### L [id number] #### [facility] CLIA [id number] [address] [place] [address] [place] Urobilinogen Ql (U) Negative Normal Negative [facility] Comment on above: Order Comment: Speci men Type: URINE SPECIMEN Ordering Facility: [facility] Address: [address] [place] [address] Performed By: #### L [id number] #### [facility] CLIA [id number] [address] [place] [address] [place] WBC LM.HPF (Urine sed) [#/Area] /[HPF] Abnormal 0-5 /HPF [facility] Comment on above: Order Comment: Speci men Type: URINE SPECIMEN Ordering Facility: [facility] Address: [address] [place] [address] Performed By: #### L [id number] #### [facility] CLIA [id number] [address] [place] [address] [place] Consultation Noteon 09-06-20 Consultation Note [id number]#1.0 0TIFF Normal [facility] Consultation Noteon 09-03-20 Consultation Note [id number]#1.0 0TIFF Normal [facility] Lab Reportson 09-03-2023 Lab Reports [id number]#1.0 0TIFF Normal [facility] Basic Metabolic Panelon Anion gap [Moles/Vol] 11.2 mmol/L Normal 6.0-15.0 [facility] Comment on above: Performed By: #### EDITA Warren, CBCNO ####[facility] [id number] [place] [address] [facility] Calcium [Mass/Vol] 8.0 mg/dL Low 8.6-10.3 [facility] Comment on above: Performed By: #### EDITA Warren, CBCNO ####[facility] [id number] [place] [address] [facility] Chloride [Moles/Vol] 110 mmol/L High 98-107 [facility] Comment on above: Performed By: #### EDITA Warren, CBCNO ####[facility] [id number] [place] [address] [facility] CO2 [Moles/Vol] 25.2 mmol/L Normal 21.0-31.0 [facility] Comment on above: Performed By: #### EDITA Warren, CBCNO ####[facility] [id number] [place] [address] [facility] Creatinine [Mass/Vol] 2.30 mg/dL High 0.60-1.20 [facility] Comment on above: Performed By: #### EDITA Warren, CBCNO ####[facility] [id number] [place] [address] [place] Creatinine Clr Calc Pharmacy 14.54 [facility] Comment on above: Performed By: #### EDITA Warren, CBCNO ####[facility] [id number] [place] [address] [place] GFR/1.73 sq M.predicted MDRD (S/P/Bld) [Vol rate/Area] 20.194 mL/min/{1.73_m2} Normal [facility] Comment on above: Performed By: #### EDITA Warren, CBCNO ####[place] [address] [place] [id number] [facility] Glucose [Mass/Vol] 109 mg/dL High 70-100 [facility] Comment on above: Result Comment: [place] Glucose Reference Range is dependent on time and content of last meal. Glucose of more than 200 mg/dL in a nonstressed, ambulatory subject supports the diagnosis of Diabetes Mellitus. ADA recommended reference range Performed By: #### M EDITA Padgett, CBCNO ####[place] [address] [place] [id number] [facility] Potassium [Moles/Vol] 4.4 mmol/L Normal 3.5-5.1 [facility] Comment on above: Performed By: #### EDITA Warren, CBCNO ####[place] [id number] [facility] Sodium [Moles/Vol] 142 mmol/L Normal 136-145 [facility] Comment on above: Performed By: #### EDITA Warren, CBCNO ####[place] [id number] [facility] Urea nitrogen [Mass/Vol] 31 mg/dL High 7-25 [facility] Comment on above: Performed By: #### EDITA Warren, CBCNO ####[place] [id number] [facility] Hemogram CBC Without Diffon 09-02-2023 Erythrocyte distribution width (RBC) [Ratio] 14.1 % Normal 11.9-15.3 [facility] Comment on above: Performed By: #### EDITA Warren, CBCNO ####[place] [id number] [facility] Hematocrit (Bld) [Volume fraction] 32.6 % Low 34.0-46.4 [facility] Comment on above: Performed By: #### EDITA Warren, CBCNO ####[place] [id number] [facility] Hemoglobin (Bld) [Mass/Vol] 10.9 g/dL Low 11.8-15.4 [facility] Comment on above: Performed By: #### EDITA Warren CBCNO ####[place] [id number] MCH (RBC) [Entitic mass] 31.6 pg Normal 24.7-34.3 [facility] Comment on above: Performed By: #### EDITA Warren CBCNO ####[place] [address] MCV (RBC) [Entitic vol] 94.7 fL Normal 80-100 F [facility] Comment on above: Performed By: #### EDITA Warren CBCNO ####[address] Mean Corpuscular HGB Conc 33.4 g/dL Normal 32.0-35.0 [facility] Comment on above: Performed By: #### EDITA Warren CBCNO ####[address] Platelet mean volume (Bld) [Entitic vol] 8.8 fL Normal 6.3-10.7 [facility] Comment on above: Result Comment: PERF ORMED BY: [facility] [address] [place] [address] PATHOLOGIST DISK OPERATOR BARBARA MUNOZ M.D. Performed By: #### EDITA Warren CBCNO ####[address] Platelets (Bld) [#/Vol] 192 10*3/uL Normal 150-450 [facility] Comment on above: Performed By: #### EDITA Warren CBCNO ####[place] [id number] [facility] RBC (Bld) [#/Vol] 3.44 10*6/uL Low 3.60-5.00 [facility] Comment on above: Performed By: #### EDITA Warren CBCNO ####[address] [place] [address] [facility] WBC (Bld) [#/Vol] 7.8 10*3/uL Normal 3.8-11.6 [facility] Comment on above: Performed By: #### M G, BMP, CBCNO ####[address] [address] [facility] Magnesiumon 09-02-2023 Magnesium [Mass/Vol] 2.5 mg/dL Normal 1.9-2.7 [facility] Comment on above: Result Comment: PERF ORMED BY: [facility] [address] [place] [id number] PATHOLOGIST DISK OPERATOR BARBARA MUNOZ M.D. Performed By: #### M Lorin, BMP, CBCNO ####[place] [id number] [facility] Ammoniaon 09-01-2023 Ammonia (P) [Moles/Vol] 23 umol/L Normal 11-35 [facility] Comment on above: Result Comment: PERF ORMED BY: [facility] [address] [place] [id number] PATHOLOGIST DISK OPERATOR BARBARA MUNOZ M.D. Performed By: #### A MM ####[place] [id number] [facility] Basic Metabolic Panelon 12-0 Anion gap [Moles/Vol] 11.9 mmol/L Normal 6.0-15.0 [facility] Comment on above: Performed By: #### V [id number], MG, CBC, BMP, TSH3 ####[address] [address] [facility] Calcium [Mass/Vol] 8.4 mg/dL Low 8.6-10.3 [facility] Comment on above: Performed By: #### V [id number], MG, CBC, BMP, TSH3 ####[address] [address] [facility] Chloride [Moles/Vol] 111 mmol/L High 98-107 [facility] Comment on above: Performed By: #### V [id number], MG, CBC, BMP, TSH3 ####[place] [address] [place] [id number] [facility] CO2 [Moles/Vol] 23.2 mmol/L Normal 21.0-31.0 [facility] Comment on above: Performed By: #### V [id number], MG, CBC, BMP, TSH3 ####[place] [id number] [facility] Creatinine [Mass/Vol] 2.45 mg/dL High 0.60-1.20 [facility] Comment on above: Performed By: #### V [id number], MG, CBC, BMP, TSH3 ####[address] Creatinine Clr Calc Pharmacy 13.65 [facility] Comment on above: Performed By: #### V [id number], MG, CBC, BMP, TSH3 ####[place] [id number] [facility] GFR/1.73 sq M.predicted MDRD (S/P/Bld) [Vol rate/Area] 18.720 mL/min/{1.73_m2} [facility] Comment on above: Performed By: #### V [id number], MG, CBC, BMP, TSH3 ####[address] Glucose [Mass/Vol] 90 mg/dL Normal 70-100 [facility] Comment on above: Result Comment: [place] Glucose Reference Range is dependent on time and content of last meal. Glucose of more than 200 mg/dL in a nonstressed, ambulatory subject supports the diagnosis of Diabetes Mellitus. ADA recommended reference range Performed By: #### V [id number], MG, CBC, BMP, TSH3 ####[place] [id number] [facility] Potassium [Moles/Vol] 4.1 mmol/L Normal 3.5-5.1 [facility] Comment on above: Performed By: #### V [id number], MG, CBC, BMP, TSH3 ####[facility] [id number] [place] [address] [facility] Sodium [Moles/Vol] 142 mmol/L Normal 136-145 [facility] Comment on above: Performed By: #### V [id number], MG, CBC, BMP, TSH3 ####[facility] [address] [place] [address] [facility] Urea nitrogen [Mass/Vol] 28 mg/dL High 7-25 [facility] Comment on above: Performed By: #### V [id number], MG, CBC, BMP, TSH3 ####[place] [address] [place] [address] [facility] Blood Cultureon 09-01-2023 Bacteria identified Cx Nom (Bld) PT IS BEING MEDICATED NO GROWTH 5 DAYS PERFORMED BY: [place] [address] PATHOLOGIST DISK OPERATOR BARBARA MUNOZ M.D. [facility] Comment on above: Performed By: #### L SARANYA FUNESLD #### [facility] [address] [place] [address] Bacteria identified Cx Nom (Bld) PT IS BEING MEDICATED NO GROWTH 5 DAYS PERFORMED BY: [place] [address] PATHOLOGIST DISK OPERATOR BARBARA MUNOZ M.D. [facility] Comment on above: Performed By: #### L JUVENAL FUNES #### [facility] [address] [place] [address] CT abdomen pelvis wo conon 1 11-02-2022 CT abdomen pelvis wo [facility] [address] [place] [address] CT Scan Report Signed Patient: Meenu Nolan MR#: [id number] 34 : 1935 Acct:[id number] Age/Sex: 88 / F ADM Date: 08/31/23 Loc: Room: [address] [place] [address] Type: ADM IN Attending Dr: Riky Bundy MD Copies to: MD Riky Fox MD Ordering Provider: Destiny Irwin MD Date of Service: 08/31/23 CT/CT abdomen pelvis wo con: hx kidney stone, AMS, difficulty urinating CT ABDOMEN AND PELVIS WITHOUT CONTRAST CLINICAL DATA: Urinary tract infection with decreased renal function. COMPARISON: None Lateral images were obtained through the abdomen and pelvis without contrast. This CT exam was performed using one or more following dose reduction techniques: Automated exposure control, adjustment of the mA and/or kV according to patient size, or use of iterative reconstruction technique. Limited cuts through the lung bases show minimal atelectasis or scarring. Assessment of the intra-abdominal organs is slightly limited by the absence of contrast. There are calcified hepatic and splenic granulomas. The gallbladder is surgically absent. The pancreas is atrophic. There is bilateral adrenal limb thickening. There is a small lower pole right renal hypodensity suggesting a potential cyst. There are a couple punctate stones at the right kidney. There is a large staghorn calculus on the left that essentially fills the entire collecting system. There is no significant hydronephrosis. No ureteral dilatation or stones are seen. There is atherosclerotic plaque at the aorta, iliac and some of the visceral arteries. There are few small lymph nodes. No ascites is seen. There is air within the stomach. The small bowel loops are not significantly distended. There is a large amount of colonic stool. Dextro scoliotic curvature and degenerative changes are seen at the lumbar spine. Images through the pelvis are slightly limited by streak artifact from a left hip prosthesis. There is no disproportionate small bowel distention. The appendix is not discretely seen. There is air and increased stool at the distal colon. No diverticular disease is noted. No bladder abnormalities are seen. The uterus appears to be surgically absent. There is no ascites. CT/CT abdomen pelvis wo con IMPRESSION: GRANULOMATOUS CHANGES. BILATERAL RENAL STONES, STAGHORN ON THE LEFT. THERE IS NO ASSOCIATED HYDRONEPHROSIS. PROBABLE SMALL RIGHT RENAL CYST. INCREASED COLONIC STOOL. Impression dictated by: Isabel Vega M.D.09/01/2023 6:29 AM Dictation Location: [place] [address] Transcribed By: [facility] 09/01/23 0629 Dictated By: Isabel Vega MD 09/01/23622 Signed By: 09/01/23628 [facility] CT head/brain wo conon 09-01 CT head/brain wo con [facility] [address] [place] [address] CT Scan Report Signed Patient: Meenu Nolan MR#: [id number] 34 : 1935 Acct:[id number] Age/Sex: 88 / F ADM Date: 08/31/23 Loc: Room: [address] [place] [address] Type: ADM IN Attending Dr: Riky Bundy MD Copies to: MD Riky Fox MD Ordering Provider: Destiny Irwin MD Date of Service: 08/31/23 CT/CT head/brain wo con: AMS x [address] BRAIN WITHOUT CONTRAST: CLINICAL HISTORY: Altered mental status with hallucinations. Decreased renal function COMPARISON: None TECHNIQUE: Contiguous axial unenhanced images were obtained through the brain. This CT exam was performed using one or more following dose reduction techniques: Automated exposure control, adjustment of the mA and/or kV according to patient size, or use of iterative reconstruction technique. FINDINGS: There is generalized atrophy. The ventricles are normal in size and position. Mild microvascular changes are noted. There are prominent perivascular spaces and/or old basal ganglia lacunar infarcts. There are no additional areas of abnormal attenuation. There is no hemorrhage, mass effect or extra-axial collections. The imaged paranasal sinuses and mastoid air cells are clear. Carotid siphon and vertebral artery plaque is seen. CT/CT head/brain wo con IMPRESSION: ATROPHY AND CHRONIC MICROVASCULAR CHANGES. NO ACUTE INTRACRANIAL ABNORMALITY. Impression dictated by: Isabel Vega M.D.09/01/2023 6:14 AM Dictation Location: [place] [address] Transcribed By: [facility] 09/01/23613 Dictated By: Isabel Vega MD 09/01/23611 Signed By: 09/01/23613 [facility] Complete Blood Count Auto Di ffon 09-01-2023 Basophils (Bld) [#/Vol] 0.0 10*3/uL Normal 0.0-0.2 [facility] Comment on above: Result Comment: PERF ORMED BY: [facility] [address] [place] [address] PATHOLOGIST DISK OPERATOR BARBARA MUNOZ M.D. Performed By: #### V [id number], MG, CBC, BMP, TSH3 ####[address] Basophils/100 WBC (Bld) 0.3 % Normal . F [facility] Comment on above: Performed By: #### V [id number], MG, CBC, BMP, TSH3 ####[address] Eosinophils (Bld) [#/Vol] 0.1 10*3/uL Normal 0.0-0.45 [facility] Comment on above: Performed By: #### V [id number], MG, CBC, BMP, TSH3 ####[address] Eosinophils/100 WBC (Bld) 1.6 % Normal . [facility] Comment on above: Performed By: #### V [id number], MG, CBC, BMP, TSH3 ####[address] Erythrocyte distribution width (RBC) [Ratio] 14.0 % Normal 11.9-15.3 [facility] Comment on above: Performed By: #### V [id number], MG, CBC, BMP, TSH3 ####[address] Hematocrit (Bld) [Volume fraction] 35.9 % Normal 34.0-46.4 [facility] Comment on above: Performed By: #### V [id number], MG, CBC, BMP, TSH3 ####[address] Hemoglobin (Bld) [Mass/Vol] 11.9 g/dL Normal 11.8-15.4 [facility] Comment on above: Performed By: #### V [id number], MG, CBC, BMP, TSH3 ####[address] Lymphocytes (Bld) [#/Vol] 1.5 10*3/uL Normal 1.00-4.8 [facility] Comment on above: Performed By: #### V [id number], MG, CBC, BMP, TSH3 ####[address] Lymphocytes/100 WBC (Bld) 19.5 % Normal . [facility] Comment on above: Performed By: #### V [id number], MG, CBC, BMP, TSH3 ####[address] MCH (RBC) [Entitic mass] 31.2 pg Normal 24.7-34.3 [facility] Comment on above: Performed By: #### V [id number], MG, CBC, BMP, TSH3 ####[address] MCV (RBC) [Entitic vol] 94.6 fL Normal 80-100 [facility] Comment on above: Performed By: #### V [id number], MG, CBC, BMP, TSH3 ####[address] Mean Corpuscular HGB Conc 33.0 g/dL Normal 32.0-35.0 [facility] Comment on above: Performed By: #### V [id number], MG, CBC, BMP, TSH3 ####[address] Monocytes (Bld) [#/Vol] 1.0 10*3/uL High 0.0-0.8 [facility] Comment on above: Performed By: #### V [id number], MG, CBC, BMP, TSH3 ####[address] Monocytes/100 WBC (Bld) 12.4 % Normal . F [facility] Comment on above: Performed By: #### V [id number], MG, CBC, BMP, TSH3 ####[address] Neutrophils (Bld) [#/Vol] 5.2 10*3/uL Normal 1.8-7.7 [facility] Comment on above: Performed By: #### V [id number], MG, CBC, BMP, TSH3 ####[address] Neutrophils/100 WBC (Bld) 66.2 % Normal . [facility] Comment on above: Performed By: #### V [id number], MG, CBC, BMP, TSH3 ####[address] NRBC% 0.0 /100{WBC} Normal 0-0.5 [facility] Comment on above: Performed By: #### V [id number], MG, CBC, BMP, TSH3 ####[address] Platelet mean volume (Bld) [Entitic vol] 8.2 fL Normal 6.3-10.7 [facility] Comment on above: Performed By: #### V [id number], MG, CBC, BMP, TSH3 ####[address] Platelets (Bld) [#/Vol] 216 10*3/uL Normal 150-450 [facility] Comment on above: Performed By: #### V [id number], MG, CBC, BMP, TSH3 ####[address] RBC (Bld) [#/Vol] 3.80 10*6/uL Normal 3.60-5.00 [facility] Comment on above: Performed By: #### V [id number], MG, CBC, BMP, TSH3 ####[address] WBC (Bld) [#/Vol] 7.8 10*3/uL Normal 3.8-11.6 [facility] Comment on above: Performed By: #### V [id number], MG, CBC, BMP, TSH3 ####[facility] [address] Consultation Noteon 09-01-20 Consultation Note [id number] [id number] Normal [facility] Dipstick and Microscopicon 1 11-02-2022 Appearance (U) Cloudy Critically abnormal Clear [facility] Comment on above: Order Comment: Name Collection Type:: Voided Performed By: #### C UU, ADDONUAPLUS #### [facility] [address] [place] [address] Bacteria,Urine None Seen Normal None Seen [facility] Comment on above: Order Comment: Name Collection Type:: Voided Result Comment: PERF ORMED BY: [place] [address] PATHOLOGIST DISK OPERATOR BARBARA MUNOZ M.D. Performed By: #### C UU, ADDONUAPLUS #### [facility] [address] [place] [address] Bilirubin,Urine Negative Normal Negative [facility] Comment on above: Order Comment: Name Collection Type:: Voided Performed By: #### C UU, ADDONUAPLUS #### [facility] [address] [place] [address] Color (U) Yellow Normal Yellow [facility] Comment on above: Order Comment: Name Collection Type:: Voided Performed By: #### C UU, ADDONUAPLUS #### [facility] [address] [place] [address] Glucose Ql (U) Normal Normal Normal [facility] Comment on above: Order Comment: Name Collection Type:: Voided Performed By: #### C UU, ADDONUAPLUS #### [facility] [address] [place] [address] [place] Ketones Ql (U) Negative Normal Negative [facility] Comment on above: Order Comment: Name Collection Type:: Voided Performed By: #### C UU, ADDONUAPLUS #### [address] Leukocyte esterase Test strip Ql (U) 4+ High Negative [facility] Comment on above: Order Comment: Name Collection Type:: Voided Performed By: #### C UU, ADDONUAPLUS #### [address] Nitrite,Urine Negative Normal Negative [facility] Comment on above: Order Comment: Name Collection Type:: Voided Performed By: #### C UU, ADDONUAPLUS #### [address] Occult Blood,Urine Trace High Negative [facility] Comment on above: Order Comment: Name Collection Type:: Voided Result Comment: PERF ORMED BY: [place] [address] PATHOLOGIST DISK OPERATOR BARBARA MUNOZ M.D. Performed By: #### C UU, ADDONUAPLUS #### [address] pH (U) 6.0 [pH] Normal 5.0-9.0 [facility] Comment on above: Order Comment: Name Collection Type:: Voided Performed By: #### C UU, ADDONUAPLUS #### [place] [address] [place] Protein (U) [Mass/Vol] 30 mg/dL High Negative [facility] Comment on above: Order Comment: Name Collection Type:: Voided Performed By: #### C UU, ADDONUAPLUS #### [address] RBC,Urine 1-2 Normal 0-4 [facility] Comment on above: Order Comment: Name Collection Type:: Voided Performed By: #### C UU, ADDONUAPLUS #### [place] [address] [place] Specificy [place],Urine 1.016 Normal 1.001-1.030 [facility] Comment on above: Order Comment: Name Collection Type:: Voided Performed By: #### C UU, ADDONUAPLUS #### [facility] [address] Squamous Epithelial Cell,Urine 3-4 High 0-2 [facility] Comment on above: Order Comment: Name Collection Type:: Voided Performed By: #### C UU, ADDONUAPLUS #### [address] Urobilinogen,Urine Normal Normal Normal [facility] Comment on above: Order Comment: Name Collection Type:: Voided Performed By: #### C UU, ADDONUAPLUS #### [address] WBC,Urine 50-100 High 0-4 [facility] Comment on above: Order Comment: Name Collection Type:: Voided Performed By: #### C UU, ADDONUAPLUS #### [address] Lactic Acidon 09-01-2023 Lactate [Moles/Vol] 0.8 mmol/L Normal 0.5-2.2 [facility] Comment on above: Order Comment: PT IS BEING MEDICATED Result Comment: PERF ORMED BY: [address] [place] [address] PATHOLOGIST DISK OPERATOR BARBARA MUNOZ M.D. Performed By: #### L ACTIC, CUBLD #### [facility] [address] [place] [address] Magnesiumon 09-01-2023 Magnesium [Mass/Vol] 2.2 mg/dL Normal 1.9-2.7 [facility] Comment on above: Performed By: #### V [id number], MG, CBC, BMP, TSH3 ####[facility] [address] Thyroid Stimulating Hormoneo n 09-01-2023 TSH Qn 1.90 m[IU]/L Normal 0.45-5.33 [facility] Comment on above: Result Comment: PERF ORMED BY: [place] [address] PATHOLOGIST DISK OPERATOR BARBARA MUNOZ M.D. Performed By: #### V [id number], MG, CBC, BMP, TSH3 ####[facility] [address] [place] [address] Troponin I High Sensitivityo n 09-01-2023 Troponin I High Sensitivity 33.3 pg/mL High 0.0-15.0 [facility] Comment on above: Result Comment: PERF ORMED BY: [place] [address] PATHOLOGIST DISK OPERATOR BARBARA MUNOZ M.D. Performed By: #### H S TROP #### [facility] [address] [place] [address] Urine Cultureon 09-01-2023 Bacteria identified Cx Nom (U) 75,000 colonies/ml mixed bacterial skin contaminants 2 Days PERFORMED BY: [place] [address] PATHOLOGIST DISK OPERATOR BARBARA MUNOZ M.D. [facility] Comment on above: Performed By: #### C UU, ADDONUAPLUS #### [facility] [address] [place] [address] Vit. B12/Folate Profileon Cobalamin (Vitamin B12) [Mass/Vol] 465 pg/mL Normal 180-914 [facility] Comment on above: Performed By: #### V [id number], MG, CBC, BMP, TSH3 ####[address] Folate 41.0 ng/mL Normal >5.9 [facility] Comment on above: Result Comment: Danielle te reference range: >5.9 ng/ml The WHO technical consultation on folate and vitamin b12 deficiencies has determined that folate concentrations less than 4 ng/ml are considered deficient. Performed By: #### V [id number], MG, CBC, BMP, TSH3 ####[facility] [address] [place] [id number] [place] XR chest 2V*on 09-01-2023 XR chest 2V* [facility] [address] [place] [address] XRay Report Signed Patient: Meenu Nolan MR#: [id number] 34 : 1935 Acct:[id number] Age/Sex: 88 / F ADM Date: 08/31/23 Loc: Room: [address] [place] [address] Type: ADM IN Attending Dr: Riky Bundy MD Copies to: MD Riky Fox MD Ordering Provider: Destiny Irwin MD Date of Service: 08/31/23 XR/XR chest 2V*: Altered Mental Status PA AND LATERAL CHEST: CLINICAL HISTORY: Altered mental status. Urinary tract infection with decreased urine function. COMPARISON: None Minor chronic changes are present. There is no focal parenchymal consolidation, effusion or pneumothorax. The cardiac, hilar and mediastinal silhouettes are within normal limits. There is no vascular congestion. The visualized bony structures are osteopenic. There is mild degenerative change of spine. XR/XR chest 2V* IMPRESSION: NO ACUTE CARDIOPULMONARY ABNORMALITY. Impression dictated by: Isabel Vega M.D.09/01/2023 6:23 AM Dictation Location: [place] [address] Transcribed By: [facility] 09/01/23622 Dictated By: Isabel Vega MD 09/01/23621 Signed By: 09/01/23622 Normal [facility] Alanine aminotransferase [En zymatic activity/volume] in Serum or PlasmaOrdered By: Destiny Irwin on 08-31-2023 ALT [Catalytic activity/Vol] 29 U/L 7-52 [facility] Albumin [Mass/volume] in Ser um or Plasma by Bromocresol green (BCG) dye binding methoOrdered By: Destiny Irwin on 08-31-2023 Albumin BCG dye [Mass/Vol] 4.7 g/dL 3.5-5.7 [facility] Alkaline phosphatase [Enzyma tic activity/volume] in Serum or PlasmaOrdered By: Destiny Irwin on 08-31-2023 ALP [Catalytic activity/Vol] 101 U/L 34-104 [facility] Aspartate aminotransferase [ Enzymatic activity/volume] in Serum or PlasmaOrdered By: Destiny Irwin on 08-31-2023 AST [Catalytic activity/Vol] 29 U/L 13-39 [facility] Automated erythrocytes count in urine sediment (number/area)Ordered By: Destiny Irwin on 08-31-2023 RBC Auto (Urine sed) [#/Area] 1-2 [HPF] 0-4 [facility] Automated leukocytes count i n urine sediment (number/area)Ordered By: Destiny Irwin on 08-31-2023 WBC Auto (Urine sed) [#/Area] 50-100 [HPF] 0-4 [facility] Basic Metabolic Panelon Anion gap [Moles/Vol] 16.9 mmol/L High 6.0-15.0 [facility] Comment on above: Performed By: #### B MP, HEPATIC, CBC, LIPASE ####[facility] [id number] [place] [id number] [facility] Calcium [Mass/Vol] 9.5 mg/dL Normal 8.6-10.3 [facility] Comment on above: Performed By: #### B MP, HEPATIC, CBC, LIPASE ####[facility] [place] [address] [facility] Chloride [Moles/Vol] 103 mmol/L Normal 98-107 [facility] Comment on above: Performed By: #### B MP, HEPATIC, CBC, LIPASE ####[facility] [address] [place] [address] [facility] CO2 [Moles/Vol] 23.7 mmol/L Normal 21.0-31.0 [facility] Comment on above: Performed By: #### B MP, HEPATIC, CBC, LIPASE ####[facility] [address] [place] [address] [facility] Creatinine [Mass/Vol] 2.74 mg/dL High 0.60-1.20 [facility] Comment on above: Performed By: #### B MP, HEPATIC, CBC, LIPASE ####[facility] [address] [place] [address] [facility] Creatinine Clr Calc Pharmacy 12.25 [facility] Comment on above: Performed By: #### B MP, HEPATIC, CBC, LIPASE ####[place] [address] [place] [id number] [facility] GFR/1.73 sq M.predicted MDRD (S/P/Bld) [Vol rate/Area] 16.368 mL/min/{1.73_m2} [facility] Comment on above: Performed By: #### B MP, HEPATIC, CBC, LIPASE ####[place] [address] Glucose [Mass/Vol] 132 mg/dL High 70-100 [facility] Comment on above: Result Comment: [facility][note 2] Glucose Reference Range is dependent on time and content of last meal. Glucose of more than 200 mg/dL in a nonstressed, ambulatory subject supports the diagnosis of Diabetes Mellitus. ADA recommended reference range Performed By: #### B MP, HEPATIC, CBC, LIPASE ####[place] [address] [place] [address] [facility] Potassium [Moles/Vol] 4.6 mmol/L Normal 3.5-5.1 [facility] Comment on above: Performed By: #### B MP, HEPATIC, CBC, LIPASE ####[place] [address] [place] [phone] [facility] Sodium [Moles/Vol] 139 mmol/L Normal 136-145 [facility] Comment on above: Performed By: #### B MP, HEPATIC, CBC, LIPASE ####[place] [address] [place] [address] [facility] Urea nitrogen [Mass/Vol] 30 mg/dL High 7-25 [facility] Comment on above: Performed By: #### B MP, HEPATIC, CBC, LIPASE ####[place] [address] [place] [id number] [facility] Basophils Auto (Bld) [#/Vol] Ordered By: Destiny Irwin on 08-31-2023 Basophils (Bld) [#/Vol] 0.1 10*3/uL 0.0-0.2 [facility] Basophils/100 WBC Auto (Bld) Ordered By: Destiny Irwin on 08-31-2023 Basophils/100 WBC (Bld) 0.6 % . F [facility] Bilirubin Test strip Ql (U)O rdered By: Destiny Irwin on 08-31-2023 Bilirubin Ql (U) Negative Negative [facility] Bilirubin.direct [Mass/volum e] in Serum or PlasmaOrdered By: Destiny Irwin on 08-31-2023 Bilirubin.direct [Mass/Vol] 0.10 mg/dL 0.03-0.18 [facility] Bilirubin.total [Mass/volume ] in Serum or PlasmaOrdered By: Destiny Irwin on 08-31-2023 Bilirubin [Mass/Vol] 0.5 mg/dL 0.3-1.0 [facility] Calcium [Mass/volume] in Ser um or PlasmaOrdered By: Destiny Irwin on 08-31-2023 Calcium [Mass/Vol] 9.5 mg/dL 8.6-10.3 [facility] Carbon dioxide, total [Moles /volume] in Serum or PlasmaOrdered By: Destiny Irwin on 08-31-2023 CO2 [Moles/Vol] 23.7 mmol/L 21.0-31.0 [facility] Chloride [Moles/volume] in S shelley or PlasmaOrdered By: Destiny Irwin on 08-31-2023 Chloride [Moles/Vol] 103 mmol/L 98-107 [facility] Color Auto (U)Ordered By: Ashley Irwin on 08-31-2023 Color (U) Yellow Yellow [facility] Complete Blood Count Auto Di ffon 08-31-2023 Basophils (Bld) [#/Vol] 0.1 10*3/uL Normal 0.0-0.2 [facility] Comment on above: Result Comment: PERF ORMED BY: [facility] [address] [place] [address] PATHOLOGIST DISK OPERATOR BARBARA MUNOZ M.D. Performed By: #### B MP, HEPATIC, CBC, LIPASE ####[facility] Basophils/100 WBC (Bld) 0.6 % Normal . F [facility] Comment on above: Performed By: #### B MP, HEPATIC, CBC, LIPASE ####[address] Eosinophils (Bld) [#/Vol] 0.0 10*3/uL Normal 0.0-0.45 [facility] Comment on above: Performed By: #### B MP, HEPATIC, CBC, LIPASE ####[address] Eosinophils/100 WBC (Bld) 0.5 % Normal . [facility] Comment on above: Performed By: #### B MP, HEPATIC, CBC, LIPASE ####[address] Erythrocyte distribution width (RBC) [Ratio] 13.7 % Normal 11.9-15.3 [facility] Comment on above: Performed By: #### B MP, HEPATIC, CBC, LIPASE ####[address] Hematocrit (Bld) [Volume fraction] 40.5 % Normal 34.0-46.4 [facility] Comment on above: Performed By: #### B MP, HEPATIC, CBC, LIPASE ####[address] Hemoglobin (Bld) [Mass/Vol] 13.3 g/dL Normal 11.8-15.4 [facility] Comment on above: Performed By: #### B MP, HEPATIC, CBC, LIPASE ####[address] Lymphocytes (Bld) [#/Vol] 1.9 10*3/uL Normal 1.00-4.8 [facility] Comment on above: Performed By: #### B MP, HEPATIC, CBC, LIPASE ####[address] Lymphocytes/100 WBC (Bld) 20.5 % Normal . [facility] Comment on above: Performed By: #### B MP, HEPATIC, CBC, LIPASE ####[address] MCH (RBC) [Entitic mass] 31.5 pg Normal 24.7-34.3 [facility] Comment on above: Performed By: #### B MP, HEPATIC, CBC, LIPASE ####[address] MCV (RBC) [Entitic vol] 95.4 fL Normal 80-100 [facility] Comment on above: Performed By: #### B MP, HEPATIC, CBC, LIPASE ####[address] Mean Corpuscular HGB Conc 33.0 g/dL Normal 32.0-35.0 [facility] Comment on above: Performed By: #### B MP, HEPATIC, CBC, LIPASE ####[address] Monocytes (Bld) [#/Vol] 1.0 10*3/uL High 0.0-0.8 [facility] Comment on above: Performed By: #### B MP, HEPATIC, CBC, LIPASE ####[address] Monocytes/100 WBC (Bld) 18.57 % Normal 0.00-20.00 [facility] Comment on above: Performed By: #### B MP, HEPATIC, CBC, LIPASE ####[address] Monocytes/100 WBC (Bld) 10.6 % Normal . [facility] Comment on above: Performed By: #### B MP, HEPATIC, CBC, LIPASE ####[address] Neutrophils (Bld) [#/Vol] 6.4 10*3/uL Normal 1.8-7.7 [facility] Comment on above: Performed By: #### B MP, HEPATIC, CBC, LIPASE ####[address] [place] [address] [place] Neutrophils/100 WBC (Bld) 67.8 % Normal . [facility] Comment on above: Performed By: #### B MP, HEPATIC, CBC, LIPASE ####[address] NRBC% 0.0 /100{WBC} Normal 0-0.5 [facility] Comment on above: Performed By: #### B MP, HEPATIC, CBC, LIPASE ####[address] Platelet mean volume (Bld) [Entitic vol] 8.4 fL Normal 6.3-10.7 [facility] Comment on above: Performed By: #### B MP, HEPATIC, CBC, LIPASE ####[address] Platelets (Bld) [#/Vol] 249 10*3/uL Normal 150-450 [facility] Comment on above: Performed By: #### B MP, HEPATIC, CBC, LIPASE ####[address] RBC (Bld) [#/Vol] 4.24 10*6/uL Normal 3.60-5.00 [facility] Comment on above: Performed By: #### B MP, HEPATIC, CBC, LIPASE ####[address] WBC (Bld) [#/Vol] 9.4 10*3/uL Normal 3.8-11.6 [facility] Comment on above: Performed By: #### B MP, HEPATIC, CBC, LIPASE ####[address] Creatinine [Mass/volume] in Serum or PlasmaOrdered By: Destiny Irwin on 08-31-2023 Creatinine [Mass/Vol] 2.74 mg/dL 0.60-1.20 [facility] D-Dimer High Sensitivityon 1 11-01-2022 D-Dimer High Sensitivity < 200 Normal 0-243 [facility] Comment on above: Result Comment: The reference range for D-dimer is <243 ng/mL D-dimer units. D-dimer results must be used in conjunction with a clinical pretest probability (PTP) assessment model for deep vein thrombosis (DVT) and pulmonary embolism (PE). Results <230 ng/mL d-dimer units can be used as a negative predictor in patients with low or moderate probability for DVT/PE. Results above the exclusion threshold of 230 ng/ml D-dimer units for DVT/PE may indicate the need for further diagnostic testing. D-Dimer can be increased in hospitalized patients due to co-morbid conditions. A hematocrit value greater than 55% may lead to inaccurate results in coagulation testing. Patients having hematocrit values >55% require a special collection tube for coagulation studies. Please contact the laboratory at [phone] for redraw instructions. PERFORMED BY: [place] [id number] PATHOLOGIST DISK OPERATOR BARBARA MUNOZ M.D. Performed By: #### D DIMER #### [place] [id number] [facility] ECG 12 lead ECGon 08-31-2023 ECG 12 lead ECG [facility] Main [facility] [address] [place] [address] Electrocardiograph Report Signed Patient: Meenu Nolan MR#: [id number] [birth year] : 1935 Acct:[id number] Age/Sex: 88 / F ADM Date: 08/31/23 Loc: Room: [address] [place] [address] Type: ADM IN Attending Dr: Riky Bundy MD Ordering Provider: Destiny Irwin MD Date of Service: 08/31/2302/16/2033 ECG/ECG 12 lead ECG: Altered Mental Status Copies to: Test Reason : Blood Pressure : / mmHG Vent. Rate : 077 BPM Atrial Rate : 077 BPM P-R Int : 188 ms QRS Dur : 102 ms QT Int : 422 ms P-R-T Axes : 077 -30 047 degrees QTc Int : 477 ms Normal sinus rhythm Left axis deviation Minimal voltage criteria for LVH, may be normal variant q waves V1-V3 consistent prior anterior infarct Confirmed by Michael Marx DO ([id number]) on 09/01/2023 6:18:58 AM Referred By: Electronically Signed By:Michael Marx DO Transcribed By: MUS Signed By Michael Marx DO [id number] Normal [facility] Eosinophils Auto (Bld) [#/Vo l]Ordered By: Destiny Irwin on 08-31-2023 Eosinophils (Bld) [#/Vol] 0.0 10*3/uL 0.0-0.45 [facility] Eosinophils/100 WBC Auto (Bl d)Ordered By: Destiny Irwin on 08-31-2023 Eosinophils/100 WBC (Bld) 0.5 % . [facility] Erythrocyte distribution wid th Auto (RBC) [Ratio]Ordered By: Destiny Irwin on 08-31-2023 Erythrocyte distribution width (RBC) [Ratio] 13.7 % 11.9-15.3 [facility] Fibrin D-dimer [Presence] in Platelet poor plasma by Latex agglutinationOrdered By: Destiny Irwin on 08-31-2023 Fibrin D-dimer LA Ql (PPP) < 200 ng/mL 0-243 [facility] Comment on above: The reference range for D-dimer is <243 ng/mL D-dimer units.D-dimer results must be used in conjunction with a clinicalpretest probability (PTP) assessment model for deep veinthrombosis (DVT) and pulmonary embolism (PE). Results <230ng/mL d-dimer units can be used as a negative predictor inpatients with low or moderate probability for DVT/PE.Results above the exclusion threshold of 230 ng/ml D-dimerunits for DVT/PE may indicate the need for furtherdiagnostic testing.D-Dimer can be increased in hospitalized patients due toco-morbid conditions.A hematocrit value greater than 55% may lead to inaccurate results in coagulation testing. Patients having hematocrit values >55% require a special collection tube for coagulation studies. Please contact the laboratory at [phone] for redraw instructions. Globulin Calc (S) [Mass/Vol] Ordered By: Destiny Irwin on 08-31-2023 Globulin (S) [Mass/Vol] 3.3 g/dL [facility] Glucose [Mass/volume] in Ser um or PlasmaOrdered By: Destiny Irwin on 08-31-2023 Glucose [Mass/Vol] 132 mg/dL 70-100 [facility] Comment on above: ADA recommended refe rence rangeRandom Glucose Reference Range is dependent on time and content of last meal. Glucose of more than 200 mg/dL in a nonstressed, ambulatory subject supports the diagnosis of Diabetes Mellitus. Hematocrit Auto (Bld) [Volum e fraction]Ordered By: Destiny Irwin on 08-31-2023 Hematocrit (Bld) [Volume fraction] 40.5 % 34.0-46.4 [facility] Hemoglobin [Mass/volume] in BloodOrdered By: Destiny Irwin on 08-31-2023 Hemoglobin (Bld) [Mass/Vol] 13.3 g/dL 11.8-15.4 [facility] Hepatic Panelon 08-31-2023 Albumin [Mass/Vol] 4.7 g/dL Normal 3.5-5.7 [facility] Comment on above: Performed By: #### B MP, HEPATIC, CBC, LIPASE ####[address] Albumin/Globulin [Mass ratio] 1.4 {ratio} Normal [facility] Comment on above: Performed By: #### B MP, HEPATIC, CBC, LIPASE ####[place] [id number] [facility] ALP [Catalytic activity/Vol] 101 U/L Normal 34-104 [facility] Comment on above: Performed By: #### B MP, HEPATIC, CBC, LIPASE ####[place] [id number] [facility] ALT [Catalytic activity/Vol] 29 U/L Normal 7-52 [facility] Comment on above: Performed By: #### B MP, HEPATIC, CBC, LIPASE ####[place] [id number] [facility] AST [Catalytic activity/Vol] 29 U/L Normal 13-39 [facility] Comment on above: Performed By: #### B MP, HEPATIC, CBC, LIPASE ####[place] [id number] [facility] Bilirubin [Mass/Vol] 0.5 mg/dL Normal 0.3-1.0 [facility] Comment on above: Performed By: #### B MP, HEPATIC, CBC, LIPASE ####[place] [id number] Bilirubin,Indirect 0.4 mg/dL Normal [facility] Comment on above: Performed By: #### B MP, HEPATIC, CBC, LIPASE ####[place] [id number] Bilirubin.indirect [Mass/Vol] 0.10 mg/dL Normal 0.03-0.18 [facility] Comment on above: Performed By: #### B MP, HEPATIC, CBC, LIPASE ####[place] [id number] Globulin (S) [Mass/Vol] 3.3 g/dL Normal [facility] Comment on above: Performed By: #### B MP, HEPATIC, CBC, LIPASE ####[address] Protein [Mass/Vol] 8.0 g/dL Normal 6.4-8.9 [facility] Comment on above: Performed By: #### B MP, HEPATIC, CBC, LIPASE ####[address] Ketones Auto test strip (U) [Mass/Vol]Ordered By: Destiny Irwin on 08-31-2023 Ketones (U) [Mass/Vol] Negative Negative [facility] Leukocytes [#/volume] correc tavia for nucleated erythrocytes in Blood by Automated counOrdered By: Destiny Irwin on 08-31-2023 WBC corrected for nucl RBC Auto (Bld) [#/Vol] 9.4 10*3/uL 3.8-11.6 [facility] Lipaseon 08-31-2023 Lipase [Catalytic activity/Vol] 33.0 U/L Normal 11.0-82.0 [facility] Comment on above: Result Comment: PERF ORMED BY: [facility] [address] [place] [id number] PATHOLOGIST DISK OPERATOR BARBARA MUNOZ M.D. Performed By: #### B MP, HEPATIC, CBC, LIPASE ####[facility] [id number] [place] [id number] [facility] Lipase [Enzymatic activity/v olume] in Serum or PlasmaOrdered By: Destiny Irwin on 08-31-2023 Lipase [Catalytic activity/Vol] 33.0 U/L 11.0-82.0 [facility] Lymphocytes Auto (Bld) [#/Vo l]Ordered By: Destiny Irwin on 08-31-2023 Lymphocytes (Bld) [#/Vol] 1.9 10*3/uL 1.00-4.8 [facility] Lymphocytes/100 WBC Auto (Bl d)Ordered By: Destiny Irwin on 08-31-2023 Lymphocytes/100 WBC (Bld) 20.5 % . [facility] MCH Auto (RBC) [Entitic mass ]Ordered By: Destiny Irwin on 08-31-2023 MCH (RBC) [Entitic mass] 31.5 pg 24.7-34.3 [facility] MCHC Auto (RBC) [Mass/Vol]Or dered By: Destiny Irwin on 08-31-2023 MCHC (RBC) [Mass/Vol] 33.0 g/dL 32.0-35.0 [facility] MCV Auto (RBC) [Entitic vol] Ordered By: Destiny Irwin on 08-31-2023 MCV (RBC) [Entitic vol] 95.4 fL 80-100 [facility] Monocyte distribution width [Entitic volume] in Blood by AutomatedOrdered By: Destiny Irwin on 08-31-2023 Monocyte distribution width Auto (Bld) [Entitic vol] 18.57 % 0.00-20.00 [facility] Monocytes Auto (Bld) [#/Vol] Ordered By: Destiny Irwin on 08-31-2023 Monocytes (Bld) [#/Vol] 1.0 10*3/uL 0.0-0.8 [facility] Monocytes/100 WBC Auto (Bld) Ordered By: Destiny Irwin on 08-31-2023 Monocytes/100 WBC (Bld) 10.6 % . [facility] Neutrophils Auto (Bld) [#/Vo l]Ordered By: Destiny Irwin on 08-31-2023 Neutrophils (Bld) [#/Vol] 6.4 10*3/uL 1.8-7.7 [facility] Neutrophils/100 WBC Auto (Bl d)Ordered By: Destiny Irwin on 08-31-2023 Neutrophils/100 WBC (Bld) 67.8 % . [facility] Nitrite Test strip Ql (U)Ord ered By: Destiny Irwin on 08-31-2023 Nitrite Ql (U) Negative Negative [facility] No Panel InformationOrdered By: Destiny Irwin on 08-31-2023 Estimated GFR (CKD-EPI) 16.368 mL/Min [facility] Creatinine Clearance (Chem 12.25 [facility] Nucleated erythrocytes [Pres ence] in Blood by Automated countOrdered By: Destiny Irwin on 08-31-2023 Nucleated RBC Auto Ql (Bld) 0.0 /100{WBC} 0-0.5 [facility] Platelet mean volume Auto (B ld) [Entitic vol]Ordered By: Destiny Irwin on 08-31-2023 Platelet mean volume (Bld) [Entitic vol] 8.4 fL 6.3-10.7 [facility] Platelets Auto (Bld) [#/Vol] Ordered By: Destiny Irwin on 08-31-2023 Platelets (Bld) [#/Vol] 249 10*3/uL 150-450 [facility] Potassium [Moles/volume] in Serum or PlasmaOrdered By: Destiny Irwin on 08-31-2023 Potassium [Moles/Vol] 4.6 mmol/L 3.5-5.1 [facility] Protein Auto test strip (U) [Mass/Vol]Ordered By: Destiny Irwin on 08-31-2023 Protein (U) [Mass/Vol] 30 mg/dL Negative [facility] Protein [Mass/volume] in Ser um or PlasmaOrdered By: Destiny Irwin on 08-31-2023 Protein [Mass/Vol] 8.0 g/dL 6.4-8.9 [facility] RBC Auto (Bld) [#/Vol]Ordere d By: Destiny Irwin on 08-31-2023 RBC (Bld) [#/Vol] 4.24 10*6/uL 3.60-5.00 [facility] Serum or plasma albumin/glob ulin mass ratioOrdered By: Destiny Irwin on 08-31-2023 Albumin/Globulin [Mass ratio] 1.4 {ratio} [facility] Serum or plasma anion gap de terminationOrdered By: Destiny Irwin on 08-31-2023 Anion gap [Moles/Vol] 16.9 mmol/L 6.0-15.0 [facility] Serum or plasma non-glucuron idated bilirubin measurement (mass/volume)Ordered By: Destiny Irwin on 08-31-2023 Bilirubin.indirect [Mass/Vol] 0.4 mg/dL [facility] Sodium [Moles/volume] in Ser um or PlasmaOrdered By: Destiny Irwin on 08-31-2023 Sodium [Moles/Vol] 139 mmol/L 136-145 [facility] Specific gravity Auto test s trip (U) [Rel density]Ordered By: Destiny Irwin on 08-31-2023 Specific gravity (U) [Rel density] 1.016 1.001-1.030 [facility] Squamous epithelial cells de tection in urine sediment by light microscopyOrdered By: Destiny Irwin on 08-31-2023 Epithelial cells.squamous LM Ql (Urine sed) 3-4 [HPF] 0-2 [facility] Troponin I High Sensitivityo n 08-31-2023 Troponin I High Sensitivity 18.1 pg/mL High 0.0-15.0 [facility] Comment on above: Result Comment: PERF ORMED BY: [facility] [address] [place] [address] PATHOLOGIST DISK OPERATOR BARBARA MUNOZ M.D. Performed By: #### H S TROP ####[facility] [place] [id number] [facility] Troponin I.cardiac [Mass/vol ume] in Serum or Plasma by Detection limit <= 0.01 ng/Ordered By: Destiny Irwin on 08-31-2023 Troponin I.cardiac DL <= 0.01 ng/mL [Mass/Vol] 18.1 pg/mL 0.0-15.0 [facility] Urea nitrogen [Mass/volume] in Serum or PlasmaOrdered By: Destiny Irwin on 08-31-2023 Urea nitrogen [Mass/Vol] 30 mg/dL 7-25 [facility] Urine bacteria detection by automated methodOrdered By: Destiny Irwin on 08-31-2023 Bacteria Auto Ql (U) None seen None Seen [facility] Urine clarity by refractomet ry automatedOrdered By: Destiny Irwin on 08-31-2023 Clarity Refractometry automated (U) Cloudy Clear [facility] Urine glucose measurement by automated test strip (mass/volume)Ordered By: Destiny Irwin on 08-31-2023 Glucose Auto test strip (U) [Mass/Vol] Normal mg/dL Normal [facility] Urine hemoglobin detection b y automated test stripOrdered By: Destiny Irwin on 08-31-2023 Hemoglobin Auto test strip Ql (U) Trace Negative [facility] Urine leukocyte esterase det ection by automated test stripOrdered By: Destiny Irwin on 08-31-2023 Leukocyte esterase Auto test strip Ql (U) 4+ Negative [facility] Urobilinogen Auto test strip (U) [Mass/Vol]Ordered By: Destiny Irwin on 08-31-2023 Urobilinogen (U) [Mass/Vol] Normal mg/dL Normal [facility] WBC Auto (Bld) [#/Vol]Ordere d By: Destiny Irwin on 08-31-2023 WBC (Bld) [#/Vol] 9.4 10*3/uL 3.8-11.6 [facility] pH Auto test strip (U)Ordere d By: Destiny Irwin on 08-31-2023 pH (U) 6.0 [pH] 5.0-9.0 [facility] Insurance Correspondence Off iceon 08-27-2023 Insurance Correspondence Office [id number] 0TIFF Normal [facility] CBC AUTO DIFFon 04-12-2021 BASO # 0.0 103/ul Normal 0.0-0.1 [facility] Comment on above: Performed By: #### C BC #### [facility] [address] [place] [address] Chelsey Isabel Basophils/100 WBC (Bld) 0.3 % Normal 0.2-2.0 [facility] Comment on above: Performed By: #### C BC #### [facility] [address] [place] [address] [place] EO # 0.1 103/ul Normal 0.0-0.7 [facility] Comment on above: Performed By: #### C BC #### [facility] [address] [place] [address] Chelsey Isabel Eosinophils/100 WBC (Bld) 2.1 % Normal 0.9-7.0 [facility] Comment on above: Performed By: #### C BC #### [facility] [address] [place] [address] Chelsye Isabel Erythrocyte distribution width (RBC) [Ratio] 13.7 % Normal 11.0-15.0 [facility] Comment on above: Performed By: #### C BC #### [facility] [address] [place] [address] Chelsey Isabel Hematocrit (Bld) [Volume fraction] 39.6 % Normal 36.0-48.0 [facility] Comment on above: Performed By: #### C BC #### [facility] [address] [place] [address] Chelsey Isabel Hemoglobin (Bld) [Mass/Vol] 12.9 g/dL Normal 12.0-16.0 [facility] Comment on above: Performed By: #### C BC #### [facility] [address] [place] [address] Chelsey Isabel IG # 0.01 10e3/ul Normal 0.00-0.03 [facility] Comment on above: Performed By: #### C BC #### [facility] [address] [place] [address] Chelsey Isabel IG % 0.2 % Normal 0.0-0.5 [facility] Comment on above: Performed By: #### C BC #### [facility] [address] [place] [address] Chelsey Isabel LYMPH # 2.2 103/ul Normal 1.2-3.8 [facility] Comment on above: Performed By: #### C BC #### [facility] [address] [place], [place] [id number] Chelsey Isabel Lymphocytes/100 WBC (Bld) 35.3 % Normal 20.5-60.0 [facility] Comment on above: Performed By: #### C BC #### [facility] [address] [place], [place] [id number] Chelsey Isabel MANUAL DIFF REQ NO Normal [facility] Comment on above: Performed By: #### C BC #### [facility] [address] [place], [place] [id number] Chelsey Isabel MCH (RBC) [Entitic mass] 31.1 pg Normal 26.7-34.0 [facility] Comment on above: Performed By: #### C BC #### [facility] [address] [place] [address] [place] MCHC (RBC) [Mass/Vol] 32.6 g/dL Normal 29.9-35.2 [facility] Comment on above: Performed By: #### C BC #### [facility] [address] [place] [address] Chelsey Isabel MCV (RBC) [Entitic vol] 95.4 fL Normal 81.0-99.0 [facility] Comment on above: Performed By: #### C BC #### [facility] [address] [place] [address] Chelsey Isabel MONO # 0.7 103/ul Normal 0.3-0.8 [facility] Comment on above: Performed By: #### C BC #### [facility] [address] [place], [place] [id number] Chelsey Isabel Monocytes/100 WBC (Bld) 12.1 % Critically high 1.7-12. 0 [facility] Comment on above: Performed By: #### C BC #### [facility] [address] [place] [address] Chelsey Isabel NEUT # 3.1 103/ul Normal 1.4-6.5 [facility] Comment on above: Performed By: #### C BC #### [facility] [address] [place], [place] [address] Chelsey Isabel Neutrophils/100 WBC (Bld) 50.0 % Normal 43.0-75.0 [facility] Comment on above: Performed By: #### C BC #### [facility] [address] [place], [place] [address] Chelsey Isabel Platelet mean volume (Bld) [Entitic vol] 10.2 fL Normal 9.5-13.5 [facility] Comment on above: Performed By: #### C BC #### [facility] [address] [place] [address] Chelsey Isabel PLT 212 103/ul Normal 150-450 [facility] Comment on above: Performed By: #### C BC #### [facility] [address] [place], [place] [id number] Chelsey Isabel RBC 4.15 106/ul Critically low 4.20-5.40 [facility] Comment on above: Performed By: #### C BC #### [facility] [address] [place] [address] Chelsey Isabel WBC 6.1 103/ul Normal 4.0-11.0 [facility] Comment on above: Performed By: #### C BC #### [facility] [address] [place] [address] Chelsey Isabel RENAL FUNCTION PANELon 04-12 Albumin [Mass/Vol] 3.4 g/dL Critically low 3.5-5.0 [facility] Comment on above: Performed By: #### R ENAL #### [facility] [address] [place] [address] Chelsey Isabel Calcium [Mass/Vol] 8.9 mg/dL Normal 8.4-10.2 [facility] Comment on above: Performed By: #### R ENAL #### [facility] [address] [place] [address] Chelsey Isabel Chloride [Moles/Vol] 106 mmol/L Normal 98-107 [facility] Comment on above: Performed By: #### R ENAL #### [facility] [address] [place] [address] Chelsey Isabel CO2 [Moles/Vol] 29.4 mmol/L Normal 22.0-30.0 [facility] Comment on above: Performed By: #### R ENAL #### [facility] [address] [place] [address] Chelsey Isabel Creatinine [Mass/Vol] 1.49 mg/dL Critically high 0.52-1.04 [facility] Comment on above: Performed By: #### R ENAL #### [facility] [address] [place] [address] Chelsey Isabel EGFR-AF KENYAN 41 mL/min/1.73m2 Critically low >=60 [facility] Comment on above: Performed By: #### R ENAL #### [facility] [address] [place] [address] Chelsey Isabel EGFR-NON AF KENYAN 33 mL/min/1.73m2 Critically low >=60 [facility] Comment on above: Performed By: #### R ENAL #### [facility] [address] [place] [address] Chelsey Isabel Glucose [Mass/Vol] 138 mg/dL Critically high 74-106 [facility] Comment on above: Performed By: #### R ENAL #### [facility] [address] [place] [address] Chelsey Isabel Phosphate [Mass/Vol] 4.3 mg/dL Normal 2.5-4.5 [facility] Comment on above: Performed By: #### R ENAL #### [facility] [address] [place] [address] Chelsey Isabel Potassium [Moles/Vol] 3.2 mmol/L Critically low 3.4-5.0 [facility] Comment on above: Performed By: #### R ENAL #### [facility] [address] [place] [address] Chelsey Isabel Sodium [Moles/Vol] 144 mmol/L Normal 137-145 [facility] Comment on above: Performed By: #### R ENAL #### [facility] [address] [place], [place] [id number] Chelsey Isabel Urea nitrogen [Mass/Vol] 28.0 mg/dL Critically high 7.0-17.0 [facility] Comment on above: Performed By: #### R ENAL #### [facility] [address] [place], [place] [id number] Chelsey Isabel UA RANDOMon 04-12-2021 Bilirubin Ql (U) Negative Normal NEGATIVE [facility] Comment on above: Performed By: #### U A #### [facility] [address] [place] [address] Chelsey Isabel Clarity (U) CLOUDY Abnormal CLEAR [facility] Comment on above: Performed By: #### U A #### [facility] [address] [place] [address] Chelsey Isabel Color (U) LT. YELLOW Normal YELLOW [facility] Comment on above: Performed By: #### U A #### [facility] [address] [place] [address] Chelsey Isabel Glucose Ql (U) Negative Normal NEGATIVE [facility] Comment on above: Performed By: #### U A #### [facility] [address] [place] [address] Chelsey Isabel Hemoglobin Ql (U) LARGE Abnormal NEGATIVE [facility] Comment on above: Performed By: #### U A #### [facility] [address] [place] [address] Chelsey Isabel Ketones Ql (U) Negative Normal NEGATIVE [facility] Comment on above: Performed By: #### U A #### [facility] [address] [place] [address] Chelsey Isabel LEUKOCYTES LARGE Abnormal NEGATIVE [facility] Comment on above: Performed By: #### U A #### [facility] [address] [place] [address] Chelsey Isabel Nitrite Ql (U) Negative Normal NEGATIVE [facility] Comment on above: Performed By: #### U A #### [facility] [address] [place] [address] Chelsey Isabel pH (U) 6.5 [pH] Normal 5-9 [facility] Comment on above: Performed By: #### U A #### [facility] [address] [place], [place] [address] Chelsey Hall SPEC GRAVITY 1.015 Normal 1.005-<=1.02 5 [facility] Comment on above: Performed By: #### U A #### [facility] [address] [place], [place] [address] Chelsey Hall UA PROTEIN 30 mg/dl Abnormal NEGATIVE/ TRACE [facility] Comment on above: Performed By: #### U A #### [facility] [address] [place], [place] [address] Chelsey Hall Urobilinogen Qn (U) 0.2 {Gerard'U}/dL Normal 0.2 - 1. 0 [facility] Comment on above: Performed By: #### U A #### [facility] [address] [place] [address] Chelsey Hall C-Reactive Proteinon 021 CRP [Mass/Vol] 7.9 mg/L High 0.0-5.0 [facility] Comment on above: Performed By: #### C DP #### [facility] [address] [place] [address] Estimator: Loi Irene MD #### CRP #### [facility] [address] [place], [place] [phone] Estimator: Dg Aparicio MD CRP [Mass/Vol] 7.9 mg/L High 0.0 - 5.0 mg/L [facility] Phone: Interpretation and review of laboratory results Abnormal [facility] Phone: PTH, Intacton 12-06-2020 PTH, Intact 39.87 pg/mL Normal 15.0-65.0 [facility] Comment on above: Result Comment: SAMP LES FROM PATIENTS ROUTINELY RECEIVING HIGH DOSE BIOTIN THERAPY MAY SHOW FALSELY DEPRESSED RESULTS. ADDITIONAL INFORMATION MAY BE REQUIRED FOR DIAGNOSIS. Performed By: #### ARMANDO Warren URI #### [employer] [facility] [address] [place] [address] Estimator: Loi Irene MD #### PTHNCA #### [facility] [address] [place], [place] [phone] Estimator: Dg Aparicio MD Pth Intact 39.87 pg/mL 15.0 - 65.0 pg/mL [employer] Phone: Comment on above: SAMPLES FROM PATIENT S ROUTINELY RECEIVING HIGH DOSE BIOTIN THERAPY MAY SHOW FALSELY DEPRESSED RESULTS. ADDITIONAL INFORMATION MAY BE REQUIRED FOR DIAGNOSIS. CBC Auto Differentialon 11-25 Basophils (Bld) [#/Vol] 10*3/uL [employer] Phone: Basophils/100 WBC (Bld) 0 % 0 - 2 % [employer] Phone: Differential Type NOT REPORTED [facility] Phone: Eosinophils (Bld) [#/Vol] 0.16 10*3/uL [employer] Phone: Eosinophils/100 WBC (Bld) 3 % 1 - 4 % [employer] Phone: Erythrocyte distribution width (RBC) [Ratio] 15.3 % High 11.8 - 14.4 % [employer] Phone: Hematocrit (Bld) [Volume fraction] 38.3 % 36.3 - 47.1 % [employer] Phone: Hemoglobin (Bld) [Mass/Vol] 11.9 g/dL 11.9 - 15.1 g/dL [facility] Phone: Immature granulocytes (Bld) [#/Vol] 10*3/uL [facility] Phone: Immature granulocytes (Bld) [#/Vol] 0 % 0 [facility] Phone: Interpretation and review of laboratory results Abnormal [facility] Phone: Lymphocytes (Bld) [#/Vol] 1.68 10*3/uL [facility] Phone: Lymphocytes/100 WBC (Bld) 32 % 24 - 43 % [facility] Phone: MCH (RBC) [Entitic mass] 31.2 pg 25.2 - 33.5 pg [employer] Phone: MCHC (RBC) [Mass/Vol] 31.1 g/dL 28.4 - 34.8 g/dL [facility] Phone: MCV (RBC) [Entitic vol] 100.3 fL 82.6 - 102.9 fL [facility] Phone: Monocytes (Bld) [#/Vol] 0.67 10*3/uL [employer] Phone: Monocytes/100 WBC (Bld) 13 % High 3 - 12 % M [employer] Phone: Platelet mean volume (Bld) [Entitic vol] 10.2 fL 8.1 - 13.5 fL [facility] Phone: Platelets (Bld) [#/Vol] 238 10*3/uL [employer] Phone: Platelets (Bld) [#/Vol] NOT REPORTED [facility] Phone: RBC (Bld) [#/Vol] 3.82 10*6/uL Low 3.95 - 5.1 1 m/uL [facility] Phone: RBC morphology finding Nom (Bld) NOT REPORTED [facility] Phone: Segmented neutrophils/100 WBC (Bld) 52 % 36 - 65 % [employer] Phone: Segs Absolute 2.75 [employer] Phone: WBC (Bld) [#/Vol] 5.3 10*3/uL [facility] [employer] Phone: WBC (Bld) [#/Vol] 0.0 10*3/uL 0.0 per 10 0 WBC [facility] [employer] Phone: WBC Morphology NOT REPORTED [facility] [employer] Phone: CBC with Diffon 12-05-2020 Abs. Basophil <0.03 Normal 0.00-0.20 [facility] Comment on above: Performed By: #### C DP #### [facility] [address] [place] [address] [place] [address] Estimator: Loi Irene MD #### CRP #### [address] [id number] Estimator: Dg Aparicio MD Abs.Imm.Granulocyte <0.03 Normal 0.00-0.30 [facility] Comment on above: Performed By: #### C DP #### [address] [place] [phone] Estimator: Loi Irene MD #### CRP #### [address] [phone] Estimator: Dg Aparicio MD Abs.Neutrophil (Seg) 2.75 k/uL Normal 1.50-8.10 [facility] Comment on above: Performed By: #### C DP #### [facility] [address] [place] [address] [place] [address] Estimator: Loi Irene MD #### CRP #### [address] [address] Estimator: Dg Aparicio MD Basophils/100 WBC (Bld) 0 % Normal 0-2 M [facility] Comment on above: Performed By: #### C DP #### [facility] [place] [phone] Estimator: Loi Irene MD #### CRP #### [address] [id number] Estimator: Dg Aparicio MD Eosinophils (Bld) [#/Vol] 0.16 10*3/uL Normal 0.00-0.44 [facility] Comment on above: Performed By: #### C DP #### [address] [place] [phone] Estimator: Loi Irene MD #### CRP #### [place] [phone] Estimator: Dg Aparicio MD Eosinophils/100 WBC (Bld) 3 % Normal 1-4 [facility] Comment on above: Performed By: #### C DP #### [address] [place] [phone] ( Estimator: Loi Irene MD #### CRP #### [place] [address] Estimator: Dg Aparicio MD Erythrocyte distribution width (RBC) [Ratio] 15.3 % High 11.8-14.4 [facility] Comment on above: Performed By: #### C DP #### [address] [place] [phone] Estimator: Loi Irene MD #### CRP #### [address] [phone] Estimator: Dg Aparicio MD Hematocrit (Bld) [Volume fraction] 38.3 % Normal 36.3-47.1 [facility] Comment on above: Performed By: #### C DP #### [address] [place] [phone] Estimator: Loi Irene MD #### CRP #### [address] [address] Estimator: Dg Aparicio MD Hemoglobin (Bld) [Mass/Vol] 11.9 g/dL Normal 11.9-15.1 [facility] Comment on above: Performed By: #### C DP #### [facility] [address] [place], [place] [phone] Estimator: Loi Irene MD #### CRP #### [address] [address] Estimator: Dg Aparicio MD Immature granulocytes/100 WBC (Bld) 0 % Normal 0 [facility] Comment on above: Performed By: #### C DP #### [facility] [address] [place], [place] [phone] Estimator: Loi Irene MD #### CRP #### [address] [address] Estimator: Dg Aparicio MD Lymphocytes (Bld) [#/Vol] 1.68 10*3/uL Normal 1.10-3.70 [facility] Comment on above: Performed By: #### C DP #### [facility] [address] [place], [place] 1007383 Estimator: Loi Irene MD #### CRP #### [address] [address] Estimator: Dg Aparicio MD Lymphocytes/100 WBC (Bld) 32 % Normal 24-43 [facility] Comment on above: Performed By: #### C DP #### [facility] [address] [place], [place] [phone] Estimator: Loi Irene MD #### CRP #### [address] [phone] Estimator: Dg Aparicio MD MCH (RBC) [Entitic mass] 31.2 pg Normal 25.2-33.5 [facility] Comment on above: Performed By: #### C DP #### [facility] [address] [place] [address] Dr. [place] [phone] Estimator: Loi Irene MD #### CRP #### [place] [phone] Estimator: Dg Aparicio MD MCHC (RBC) [Mass/Vol] 31.1 g/dL Normal 28.4-34.8 [facility] Comment on above: Performed By: #### C DP #### [address] [place] [phone] ( Estimator: Loi Irene MD #### CRP #### [place] [address] Estimator: Dg Aparicio MD MCV (RBC) [Entitic vol] 100.3 fL Normal 82.6-102.9 M [facility] Comment on above: Performed By: #### C DP #### [address] [place] [phone] Estimator: Loi Irene MD #### CRP #### [place] [address] Estimator: Dg Aparicio MD Monocytes (Bld) [#/Vol] 0.67 10*3/uL Normal 0.10-1.20 [facility] Comment on above: Performed By: #### C DP #### [address] [place] [phone] Estimator: Loi Irene MD #### CRP #### [address] [phone] Estimator: Dg Aparicio MD Monocytes/100 WBC (Bld) 13 % High 3-12 M [facility] Comment on above: Performed By: #### C DP #### [facility] [address] [place], [place] [phone] Estimator: Loi Irene MD #### CRP #### [address] [address] Estimator: Dg Aparicio MD Neutrophil (Seg) 52 % Normal 36-65 [facility] Comment on above: Performed By: #### C DP #### [address] [place], [place] 1004983 Estimator: Loi Irene MD #### CRP #### [address] [address] Estimator: Dg Aparicio MD NRBC Automated 0.0 per 100 WBC Normal 0.0 [facility] Comment on above: Performed By: #### C DP #### [facility] [address] [place] [address] [place] [address] Estimator: Loi Irene MD #### CRP #### [address] [address] Estimator: Dg Aparicio MD Platelet mean volume (Bld) [Entitic vol] 10.2 fL Normal 8.1-13.5 [facility] Comment on above: Performed By: #### C DP #### [facility] [address] [place] [address] Dr. [place], [place] [phone] Estimator: Loi Irene MD #### CRP #### [address] [address] Estimator: Dg Aparicio MD Platelets (Bld) [#/Vol] 238 10*3/uL Normal 138-453 [facility] Comment on above: Performed By: #### C DP #### [facility] [place] [address] Estimator: Loi Irene MD #### CRP #### [address] [address] Estimator: Dg Aparicio MD RBC (Bld) [#/Vol] 3.82 10*6/uL Low 3.95-5.11 [facility] Comment on above: Performed By: #### C DP #### [address] [place] [address] Estimator: Lio Ireen MD #### CRP #### [address] [address] Estimator: Dg Aparicio MD WBC (Bld) [#/Vol] 5.3 10*3/uL Normal 3.5-11.3 [facility] Comment on above: Performed By: #### C DP #### [address] [place] [address] Estimator: Loi Irene MD #### CRP #### [address] [address] Estimator: Dg Aparicio MD Auto Diff Performed NOT REPORTED Normal [facility] Comment on above: Performed By: #### C DP #### [address] [place] [address] Estimator: Loi Irene MD #### CRP #### [address] [address] Estimator: Dg Aparicio MD Platelet Estimate NOT REPORTED Normal [facility] Comment on above: Performed By: #### C DP #### [address] [place] [address] Estimator: Loi Irene MD #### CRP #### [address] [place] [address] Estimator: Dg Aparicio MD RBC morphology finding Nom (Bld) NOT REPORTED Normal [facility] Comment on above: Performed By: #### C DP #### [facility] [address] [place], [place] [phone] Estimator: Loi Irene MD #### CRP #### [address] [address] Estimator: Dg Aparicio MD WBC Morphology NOT REPORTED Normal [facility] Comment on above: Performed By: #### C DP #### [address] [place], [place] 1907183 Estimator: Loi Irene MD #### CRP #### [address] [address] Estimator: Dg Aparicio MD Magnesiumon 7 Magnesium [Mass/Vol] 2.2 mg/dL Normal 1.6-2.6 [facility] Comment on above: Performed By: #### M ARMANDO Padgett URI #### [facility] [address] [place] [address] Dr. [place], [place] [phone] Estimator: Loi Irene MD #### PTHNCA #### [address] [address] Estimator: Dg Aparicio MD Magnesium [Mass/Vol] 2.2 mg/dL 1.6 - 2 .6 mg/dL [facility] Phone: Metabolic Panelon 12-05-2020 GFR/1.73 sq M predicted among non-blacks MDRD (S/P/Bld) [Vol rate/Area] [facility] [place] [facility] Phone: Comment on above: Average GFR for 70 o r more years old: 75 mL/min/1.73sq m Chronic Kidney Disease: <60 mL/min/1.73sq m Kidney failure: <15 mL/min/1.73sq m eGFR calculated using average adult body mass. Additional eGFR calculator available at: http://www.Vetr/multiple_crcl_2012.htm Stage 1: Some kidney damage normal GFR Stage 2: Mild kidney damage GFR 60-89 Stage 3: Moderate kidney damage GFR 30-59 Stage 4: Severe kidney damage GFR 15-29 Stage 5: Severe kidney damage GFR <15 ESRD - chronic treatment by dialysis or transplant Otheron 12-05-2020 Interpretation and review of laboratory results Abnormal [facility] Work Phone: Renal Function Panelon 12-05 (cont.) Normal [facility] Comment on above: Result Comment: Aver age GFR for 70 or more years old: 75 mL/min/1.73sq m Chronic Kidney Disease: <60 mL/min/1.73sq m Kidney failure: <15 mL/min/1.73sq m eGFR calculated using average adult body mass. Additional eGFR calculator available at: http://www.Vetr/multiple_crcl_2012.htm Performed By: #### M ARMANDO Padgett, URI #### [facility] [address] [place] [address] [place] [address] Estimator: Loi Irene MD #### PTHNCA #### [place] [address] [place] [address] Estimator: Dg Aparicio MD Albumin [Mass/Vol] 3.5 g/dL Normal 3.5-5.2 [facility] Comment on above: Performed By: #### M FROY PadgettP, URI #### [facility] [address] [place] [address] [place] [address] Estimator: Loi Irene MD #### PTHNCA #### [place] [address] [place], [place] [phone] Estimator: Dg Aparicio MD Anion gap [Moles/Vol] 11 mmol/L Normal 9-17 [facility] Comment on above: Performed By: #### M ARMANDO Padgett, URI #### [facility] [address] [place], [place] [phone] Estimator: Loi Irene MD #### PTHNCA #### [address] [address] Estimator: Dg Aparicio MD BUN/CRE Ratio 20 Normal 9-20 [facility] Comment on above: Performed By: #### M FROY PadgettP, URI #### [facility] [address] [place], [place] [phone] Estimator: Loi Irene MD #### PTHNCA #### [address] [address] Estimator: Dg Aparicio MD Calcium [Mass/Vol] 9.3 mg/dL Normal 8.6-10.4 [facility] Comment on above: Performed By: #### ARMANDO Warren, URI #### [facility] [address] [place] [address] Estimator: Loi Irene MD #### PTHNCA #### [address] [address] Estimator: Dg Aparicio MD Chloride [Moles/Vol] 103 mmol/L Normal 98-107 [facility] Comment on above: Performed By: #### FROY WarrenP, URI #### [facility] [address] [place] [address] Estimator: Loi Irene MD #### PTHNCA #### [address] [address] Estimator: Dg Aparicio MD CO2 [Moles/Vol] 29 mmol/L Normal 20-31 [facility] Comment on above: Performed By: #### M G, RENP, URI #### [facility] [address] [place], [place] [phone] Estimator: Loi Irene MD #### PTHNCA #### [address] [address] Estimator: Dg Aparicio MD Creatinine [Mass/Vol] 1.43 mg/dL High 0.50-0.90 [facility] Comment on above: Performed By: #### M FROY PadgettP, URI #### [facility] [address] [place], [place] [phone] Estimator: Loi Irene MD #### PTHNCA #### [address] [phone] Estimator: Dg Aparicio MD GFR, Amer 42 mL/min Low >60 [facility] Comment on above: Performed By: #### M ARMANDO Padgett, URI #### [facility] [address] [place], [place] [phone] Estimator: Loi Irene MD #### PTHNCA #### [address] [address] Estimator: Dg Aparicio MD GFR,non Amer 35 mL/min Low >60 [facility] Comment on above: Performed By: #### M ARMANDO Padgett, URI #### [facility] [address] [place] [address] Dr[address] [place], [place] [phone] Estimator: Loi Irene MD #### PTHNCA #### [address] [address] Estimator: Dg Aparicio MD Glucose [Mass/Vol] 131 mg/dL High 70-99 [facility] Comment on above: Performed By: #### ARMANDO Warren, URI #### [facility] [address] [place] [address] Dr. [place] [phone] Estimator: Loi Irene MD #### PTHNCA #### [address] [phone] Estimator: Dg Aparciio MD Phosphorus, Inorg. 3.6 mg/dL Normal 2.6-4.5 [facility] Comment on above: Performed By: #### ARMANDO Warren URI #### [facility] [address] [place] [address] [place], [place] [phone] Estimator: Loi Irene MD #### PTHNCA #### [address] [phone] Estimator: Dg Aparicio MD Potassium [Moles/Vol] 3.4 mmol/L Low 3.7-5.3 [facility] Comment on above: Performed By: #### ARMANDO Warren URI #### [address] [place], [place] 6812483 Estimator: Loi Irene MD #### PTHNCA #### [address] [phone] Estimator: Dg Aparicio MD Sodium [Moles/Vol] 143 mmol/L Normal 135-144 [facility] Comment on above: Performed By: #### ARMANDO Warren URI #### [address] [place], [place] [phone] Estimator: Loi Irene MD #### PTHNCA #### [address] [phone] Estimator: Dg Aparicio MD Staging: Normal [facility] Comment on above: Result Comment: Stag e 1: Some kidney damage normal GFR Stage 2: Mild kidney damage GFR 60-89 Stage 3: Moderate kidney damage GFR 30-59 Stage 4: Severe kidney damage GFR 15-29 Stage 5: Severe kidney damage GFR <15 ESRD - chronic treatment by dialysis or transplant Performed By: #### M ARMANDO Padgett, URI #### [facility] [address] [place] [address] Estimator: Loi Irene MD #### PTHNCA #### [facility] [employer] [address] [place], [place] [phone] Estimator: Dg Aparicio MD Urea nitrogen [Mass/Vol] 29 mg/dL High 8-23 [facility] Comment on above: Performed By: #### ARMANDO Warren, URI #### [facility] [address] [place] [address] Estimator: Loi Irene MD #### PTHNCA #### [facility] [address] [place], [place] [phone] Estimator: Dg Aparicio MD Albumin [Mass/Vol] 3.5 g/dL 3.5 - 5.2 g/dL [employer] Phone: Anion gap [Moles/Vol] 11 mmol/L 9 - 17 mmol/L [employer] Phone: Bun/Cre Ratio 20 [employer] Phone: Calcium [Mass/Vol] 9.3 mg/dL 8.6 - 10. 4 mg/dL [employer] Phone: Chloride [Moles/Vol] 103 mmol/L 98 - 10 7 mmol/L [employer] Phone: CO2 [Moles/Vol] 29 mmol/L 20 - 31 mmol/L [employer] Phone: Creatinine [Mass/Vol] 1.43 mg/dL High 0.50 - 0.90 mg/dL [employer] Phone: GFR 42 mL/min Low >60 [employer] Phone: GFR Non- 35 mL/min Low >60 [employer] Phone: Glucose [Mass/Vol] 131 mg/dL High 70 - 99 mg/dL [employer] Phone: Phosphate [Mass/Vol] 3.6 mg/dL 2.6 - 4 .5 mg/dL [employer] Phone: Potassium [Moles/Vol] 3.4 mmol/L Low 3.7 - 5.3 mmol/L [employer] Phone: Sodium [Moles/Vol] 143 mmol/L 135 - 144 mmol/L [employer] [facility] [employer] Phone: Urea nitrogen [Mass/Vol] 29 mg/dL High 8 - 23 mg/dL [employer] [facility] [employer] Phone: Uric Acidon 12-05-2020 Urate [Mass/Vol] 7.3 mg/dL High 2.4-5.7 [facility] Comment on above: Performed By: #### M G, RENP, URI #### [facility] [address] [place] [address] [place] [address] Estimator: Loi Irene MD #### PTHNCA #### [facility] [employer] [address] [place] [address] [id number] Estimator: Dg Aparicio MD Urate [Mass/Vol] 7.3 mg/dL High 2.4 - 5.7 mg/dL [facility] Phone: C-Reactive Proteinon 021 CRP [Mass/Vol] 7.8 mg/L High 0.0-5.0 [facility] Comment on above: Performed By: #### C DP, SED #### [facility] [address] [place] [address] [place] [address] Estimator: Loi Irene MD #### CRP #### [facility] [employer] [address] [place] [phone] Estimator: Dg Aparicio MD CRP [Mass/Vol] 7.8 mg/L High 0 - 5 mg/L [employer] Phone: Interpretation and review of laboratory results Abnormal [employer] Phone: CBC Auto Differentialon 10-28 Basophils (Bld) [#/Vol] 10*3/uL M [employer] Phone: Basophils/100 WBC (Bld) 0 % 0 - 2 % M [employer] Phone: Differential Type NOT REPORTED [employer] Phone: Eosinophils (Bld) [#/Vol] 0.37 10*3/uL [employer] Phone: Eosinophils/100 WBC (Bld) 5 % High 1 - 4 % [employer] Phone: Erythrocyte distribution width (RBC) [Ratio] 17.7 % High 11.8 - 14.4 % [employer] Phone: Hematocrit (Bld) [Volume fraction] 36.9 % 36.3 - 47.1 % [employer] Phone: Hemoglobin (Bld) [Mass/Vol] 11.1 g/dL Low 11.9 - 15.1 g/dL [employer] Phone: Immature granulocytes (Bld) [#/Vol] 10*3/uL [employer] Phone: Immature granulocytes (Bld) [#/Vol] 0 % 0 [employer] Phone: Interpretation and review of laboratory results Abnormal [employer] Phone: Lymphocytes (Bld) [#/Vol] 1.74 10*3/uL [employer] Phone: Lymphocytes/100 WBC (Bld) 23 % Low 24 - 43 % [employer] Phone: MCH (RBC) [Entitic mass] 29.6 pg 25.2 - 33.5 pg [employer] Phone: MCHC (RBC) [Mass/Vol] 30.1 g/dL 28.4 - 34.8 g/dL [employer] Phone: MCV (RBC) [Entitic vol] 98.4 fL 82.6 - 102.9 fL [employer] Phone: Monocytes (Bld) [#/Vol] 0.76 10*3/uL [employer] Phone: Monocytes/100 WBC (Bld) 10 % 3 - 12 % M [employer] Phone: Platelet mean volume (Bld) [Entitic vol] 9.9 fL 8.1 - 13.5 fL [employer] Phone: Platelets (Bld) [#/Vol] NOT REPORTED [employer] Phone: Platelets (Bld) [#/Vol] 344 10*3/uL [employer] Phone: RBC (Bld) [#/Vol] 3.75 10*6/uL Low 3.95 - 5.1 1 m/uL [employer] Phone: RBC morphology finding Nom (Bld) NOT REPORTED [employer] Phone: Segmented neutrophils/100 WBC (Bld) 62 % 36 - 65 % [employer] Phone: Segs Absolute 4.61 [employer] Phone: WBC (Bld) [#/Vol] 7.5 10*3/uL [employer] Phone: WBC (Bld) [#/Vol] 0.0 10*3/uL 0.0 per 10 0 WBC [employer] Phone: WBC Morphology NOT REPORTED [facility] Phone: CBC with Diffon 11-07-2020 Abs. Basophil <0.03 Normal 0.00-0.20 [facility] Comment on above: Performed By: #### C DP, SED #### [facility] [address] [place] [phone] Estimator: Loi Irene MD #### CRP #### [address] [id number] Estimator: Dg Aparicio MD Abs.Imm.Granulocyte <0.03 Normal 0.00-0.30 [facility] Comment on above: Performed By: #### C DP, SED #### [address] [place] [phone] Estimator: Loi Irene MD #### CRP #### [address] [phone] Estimator: Dg Aparicio MD Abs.Neutrophil (Seg) 4.61 k/uL Normal 1.50-8.10 [facility] Comment on above: Performed By: #### C DP, SED #### [address] [place] [phone] Estimator: Loi Irene MD #### CRP #### [address] [address] Estimator: Dg Aparicio MD Basophils/100 WBC (Bld) 0 % Normal 0-2 M [facility] Comment on above: Performed By: #### C DP, SED #### [address] [place], [place] [phone] Estimator: Loi rIene MD #### CRP #### [address] [address] Estimator: Dg Aparicio MD Eosinophils (Bld) [#/Vol] 0.37 10*3/uL Normal 0.00-0.44 [facility] Comment on above: Performed By: #### C DP, SED #### [facility] [address] [place] [address] Dr. [place] [phone] ( Estimator: Loi Irene MD #### CRP #### [place] [address] Estimator: Dg Aparicio MD Eosinophils/100 WBC (Bld) 5 % High 1-4 [facility] Comment on above: Performed By: #### C DP, SED #### [address] [place] [id number] ( Estimator: Loi Irene MD #### CRP #### [place] [address] Estimator: Dg Aparicio MD Erythrocyte distribution width (RBC) [Ratio] 17.7 % High 11.8-14.4 [facility] Comment on above: Performed By: #### C DP, SED #### [address] [place] [phone] ( Estimator: Loi Irene MD #### CRP #### [place] [address] Estimator: Dg Aparicio MD Hematocrit (Bld) [Volume fraction] 36.9 % Normal 36.3-47.1 [facility] Comment on above: Performed By: #### C DP, SED #### [facility] [address] [place] [address] Dr. [place] [phone] ( Estimator: Loi Irene MD #### CRP #### [address] [address] Estimator: Dg Aparicio MD Hemoglobin (Bld) [Mass/Vol] 11.1 g/dL Low 11.9-15.1 [facility] Comment on above: Performed By: #### C DP, SED #### [facility] [address] [place], [place] [phone] Estimator: Loi Irene MD #### CRP #### [address] [id number] Estimator: Dg Aparicio MD Immature granulocytes/100 WBC (Bld) 0 % Normal 0 [facility] Comment on above: Performed By: #### C DP, SED #### [address] [place] [phone] Estimator: Loi Irene MD #### CRP #### [address] [address] Estimator: Dg Aparicio MD Lymphocytes (Bld) [#/Vol] 1.74 10*3/uL Normal 1.10-3.70 [facility] Comment on above: Performed By: #### C DP, SED #### [address] [place] [phone] Estimator: Loi Irene MD #### CRP #### [address] [address] Estimator: Dg Aparicio MD Lymphocytes/100 WBC (Bld) 23 % Low 24-43 [facility] Comment on above: Performed By: #### C DP, SED #### [facility] [address] [place] [address] Dr. [place] [phone] Estimator: Loi Irene MD #### CRP #### [place] [address] [place] [address] Estimator: Dg Aparicio MD MCH (RBC) [Entitic mass] 29.6 pg Normal 25.2-33.5 [facility] Comment on above: Performed By: #### C DP, SED #### [facility] [address] [place], [place] [phone] Estimator: Loi Irene MD #### CRP #### [address] [id number] Estimator: Dg Aparicio MD MCHC (RBC) [Mass/Vol] 30.1 g/dL Normal 28.4-34.8 [facility] Comment on above: Performed By: #### C DP, SED #### [facility] [address] [place], [place] [phone] Estimator: Loi Irene MD #### CRP #### [address] [phone] Estimator: Dg Aparicio MD MCV (RBC) [Entitic vol] 98.4 fL Normal 82.6-102.9 [facility] Comment on above: Performed By: #### C DP, SED #### [facility] [address] [place], [place] 5502783 Estimator: Loi Irene MD #### CRP #### [address] [id number] Estimator: Dg Aparicio MD Monocytes (Bld) [#/Vol] 0.76 10*3/uL Normal 0.10-1.20 [facility] Comment on above: Performed By: #### C DP, SED #### [facility] [address] [place], [place] [phone] Estimator: Loi Irene MD #### CRP #### [address] [address] Estimator: Dg Aparicio MD Monocytes/100 WBC (Bld) 10 % Normal 3-12 M [facility] Comment on above: Performed By: #### C DP, SED #### [facility] [address] [place] [address] [place], [place] [phone] Estimator: Loi Irene MD #### CRP #### [address] [address] Estimator: Dg Aparicio MD Neutrophil (Seg) 62 % Normal 36-65 [facility] Comment on above: Performed By: #### C DP, SED #### [facility] [address] [place] [address] Dr. [place] [phone] Estimator: Loi Irene MD #### CRP #### [address] [address] Estimator: Dg Aparicio MD NRBC Automated 0.0 per 100 WBC Normal 0.0 [facility] Comment on above: Performed By: #### C DP, SED #### [facility] [address] [place] [address] Dr. [place] [phone] Estimator: Loi Irene MD #### CRP #### [address] [address] Estimator: Dg Aparicio MD Platelet mean volume (Bld) [Entitic vol] 9.9 fL Normal 8.1-13.5 [facility] Comment on above: Performed By: #### C DP, SED #### [facility] [address] [place] [address] Dr. [place] [phone] Estimator: Loi Irene MD #### CRP #### [address] [address] Estimator: Dg Aparicio MD Platelets (Bld) [#/Vol] 344 10*3/uL Normal 138-453 [facility] Comment on above: Performed By: #### C DP, SED #### [facility] [address] [place] [address] Dr. [place] [phone] Estimator: Loi Irene MD #### CRP #### [place] [address] [place] [address] Estimator: Dg Aparicio MD RBC (Bld) [#/Vol] 3.75 10*6/uL Low 3.95-5.11 [facility] Comment on above: Performed By: #### C DP, SED #### [facility] [address] [place] [address] [place] [address] Estimator: Loi Irene MD #### CRP #### [address] [address] Estimator: Dg Aparicio MD WBC (Bld) [#/Vol] 7.5 10*3/uL Normal 3.5-11.3 [facility] Comment on above: Performed By: #### C DP, SED #### [address] [place] [phone] Estimator: Loi Irene MD #### CRP #### [address] [address] Estimator: Dg Aparciio MD Auto Diff Performed NOT REPORTED Normal [facility] Comment on above: Performed By: #### C DP, SED #### [address] [place] [address] Estimator: Loi Irene MD #### CRP #### [address] [address] Estimator: Dg Aparicio MD Platelet Estimate NOT REPORTED Normal [facility] Comment on above: Performed By: #### C DP, SED #### [address] [place] [address] Estimator: Loi Irene MD #### CRP #### [address] [address] Estimator: Dg Aparicio MD RBC morphology finding Nom (Bld) NOT REPORTED Normal [facility] Comment on above: Performed By: #### C DP, SED #### [facility] [address] [place], [place] [phone] Estimator: Loi Irene MD #### CRP #### [facility] [address] [place] [address] Estimator: Dg Aparicio MD WBC Morphology NOT REPORTED Normal [facility] Comment on above: Performed By: #### C DP, SED #### [facility] [address] [place], [place] [phone] Estimator: Loi Irene MD #### CRP #### [place] [address] [place] [address] Estimator: Dg Aparicio MD Sedimentation Rateon 021 Sedimentation Rate 51 mm High 0-20 [facility] Comment on above: Performed By: #### C DP, SED #### [facility] [address] [place], [place] [phone] Estimator: Loi Irene MD #### CRP #### [address] [address] Estimator: Dg Aparicio MD Interpretation and review of laboratory results Abnormal [facility] Work Phone: Sed Rate 51 mm High 0 - 20 mm [facility] Work Phone: Lipid Panelon 10-30-2020 Cholesterol [Mass/Vol] 147 mg/dL <200 [place], [place] Comment on above: Cholesterol Guidelines: <200 Desirable 200-240 Borderline >240 Undesirable Cholesterol in HDL [Mass/Vol] 50 mg/dL >40 [place] Comment on above: HDL Guidelines: <40 Undesirable 40-59 Borderline >59 Desirable Cholesterol in LDL [Mass/Vol] 64 mg/dL 0 - 130 mg/dL [place] Comment on above: LDL Guidelines: <100 Desirable 100-129 Near to/above Desirable 130-159 Borderline >159 Undesirable Direct (measured) LDL and calculated LDL are not interchangeable tests. Cholesterol in VLDL [Mass/Vol] NOT REPORTED High 1 - 30 mg/dL [place] Cholesterol.total/Vani sterol in HDL [Mass ratio] 2.9 {ratio} <5 [place] Interpretation and review of laboratory results Abnormal [place] Triglyceride [Mass/Vol] 166 mg/dL High <150 M [place], [place] Comment on above: Triglyceride Guidelines: <150 Desirable 150-199 Borderline 200-499 High >499 Very high Based on AHA Guidelines for fasting triglyceride, June 2012. Lipid Profileon 10-30-2020 Cholesterol [Mass/Vol] 147 mg/dL Normal <200 [facility] Comment on above: Result Comment: Cholesterol Guidelines: <200 Desirable 200-240 Borderline >240 Undesirable Performed By: #### L IPR #### [facility] [employer] [address] [place] [address] [phone] Estimator: Dg Aparicio MD Cholesterol in HDL [Mass/Vol] 50 mg/dL Normal >40 [facility] Comment on above: Result Comment: HDL Guidelines: <40 Undesirable 40-59 Borderline >59 Desirable Performed By: #### L IPR #### [facility] [employer] [address] [place] [address] [phone] Estimator: Dg Aparicio MD Cholesterol in LDL [Mass/Vol] 64 mg/dL Normal 0-130 [facility] Comment on above: Result Comment: LDL Guidelines: <100 Desirable 100-129 Near to/above Desirable 130-159 Borderline >159 Undesirable Direct (measured) LDL and calculated LDL are not interchangeable tests. Performed By: #### L IPR #### [facility] [employer] [address] [place] [phone] Estimator: Dg Aparicio MD Cholesterol.total/Vani sterol in HDL [Mass ratio] 2.9 {ratio} Normal <5 [facility] Comment on above: Performed By: #### L IPR #### [facility] [address] [place] [address], [place] [address] Estimator: Dg Aparicio MD Triglyceride [Mass/Vol] 166 mg/dL High <150 M [facility] Comment on above: Result Comment: Triglyceride Guidelines: <150 Desirable 150-199 Borderline 200-499 High >499 Very high Based on AHA Guidelines for fasting triglyceride, June 2012. Performed By: #### L IPR #### [address] [address] Estimator: Dg Aparicio MD Cholesterol,VLDL NOT REPORTED Normal 10-26 [facility] Comment on above: Performed By: #### L IPR #### [address] [address] Estimator: Dg Aparicio MD C-Reactive Proteinon CRP [Mass/Vol] 51.2 mg/L High 0.0-5.0 [facility] Comment on above: Performed By: #### C DP #### [facility] [address] [place] [address] [place] [address] Estimator: Loi Irene MD #### CRP #### [address] [address] Estimator: Dg Aparicio MD CRP [Mass/Vol] 51.2 mg/L High 0 - 5 mg/L [place] Interpretation and review of laboratory results Abnormal [place] CBCon 10-23-2020 Erythrocyte distribution width (RBC) [Ratio] 16.5 % High 11.8-14.4 [facility] Comment on above: Performed By: #### C DP #### [facility] [address] [place] [address] Estimator: Loi Irene MD #### CRP #### [address] [address] Estimator: Dg Aparicio MD Hematocrit (Bld) [Volume fraction] 32.7 % Low 36.3-47.1 [facility] Comment on above: Performed By: #### C DP #### [facility] [address] [place] [address] [place] [address] Estimator: Loi Irene MD #### CRP #### [address] [phone] Estimator: Dg Aparicio MD Hemoglobin (Bld) [Mass/Vol] 10.0 g/dL Low 11.9-15.1 [facility] Comment on above: Performed By: #### C DP #### [facility] [address] [place] [address] Dr. [place] [phone] Estimator: Loi Irene MD #### CRP #### [address] [phone] Estimator: Dg Aparicio MD MCH (RBC) [Entitic mass] 29.0 pg Normal 25.2-33.5 [facility] Comment on above: Performed By: #### C DP #### [facility] [address] [place] [address] Dr. [place] [phone] Estimator: Loi Irene MD #### CRP #### [address] [phone] Estimator: Dg Aparicio MD MCHC (RBC) [Mass/Vol] 30.6 g/dL Normal 28.4-34.8 [facility] Comment on above: Performed By: #### C DP #### [facility] [address] [place] [address] Dr. [place], [place] [phone] Estimator: Loi Irene MD #### CRP #### [address] [address] Estimator: Dg Aparicio MD MCV (RBC) [Entitic vol] 94.8 fL Normal 82.6-102.9 [facility] Comment on above: Performed By: #### C DP #### [address] [place], [place] [phone] Estimator: Loi Irene MD #### CRP #### [address] [phone] Estimator: Dg Aparicio MD NRBC Automated 0.0 per 100 WBC Normal 0.0 [facility] Comment on above: Performed By: #### C DP #### [address] [place], [place] [phone] Estimator: Loi Irene MD #### CRP #### [address] [address] Estimator: Dg Aparicio MD Platelet mean volume (Bld) [Entitic vol] 9.6 fL Normal 8.1-13.5 [facility] Comment on above: Performed By: #### C DP #### [address] [place] [phone] Estimator: Loi Irene MD #### CRP #### [address] [address] Estimator: Dg Aapricio MD Platelets (Bld) [#/Vol] 478 10*3/uL High 138-453 [facility] Comment on above: Performed By: #### C DP #### [facility] [address] [place] [address] Dr. [place] [phone] Estimator: Loi Irene MD #### CRP #### [address] [address] Estimator: Dg Aparicio MD RBC (Bld) [#/Vol] 3.45 10*6/uL Low 3.95-5.11 [facility] Comment on above: Performed By: #### C DP #### [address] [place] [address] Estimator: Loi Irene MD #### CRP #### [facility] [address] [place] [address] Estimator: Dg Aparicio MD WBC (Bld) [#/Vol] 8.2 10*3/uL Normal 3.5-11.3 [facility] Comment on above: Performed By: #### C DP #### [facility] [address] [place] [address] Estimator: Loi Irene MD #### CRP #### [facility] [address] [place] [address] Estimator: Dg Aparicio MD Erythrocyte distribution width (RBC) [Ratio] 16.5 % High 11.8 - 14.4 % [place] Hematocrit (Bld) [Volume fraction] 32.7 % Low 36.3 - 47.1 % [place] Hemoglobin (Bld) [Mass/Vol] 10.0 g/dL Low 11.9 - 15.1 g/dL [place] Interpretation and review of laboratory results Abnormal [place] MCH (RBC) [Entitic mass] 29.0 pg 25.2 - 33.5 pg [place] MCHC (RBC) [Mass/Vol] 30.6 g/dL 28.4 - 34.8 g/dL [place] MCV (RBC) [Entitic vol] 94.8 fL 82.6 - 102.9 fL [place] Platelet mean volume (Bld) [Entitic vol] 9.6 fL 8.1 - 13.5 fL [place] Platelets (Bld) [#/Vol] 478 10*3/uL High [place] RBC (Bld) [#/Vol] 3.45 10*6/uL Low 3.95 - 5.1 1 m/uL [place] WBC (Bld) [#/Vol] 8.2 10*3/uL [place] WBC (Bld) [#/Vol] 0.0 10*3/uL 0.0 per 10 0 WBC [place] Comp Metabolic Profon 2020 (cont.) Normal [facility] Comment on above: Result Comment: Aver age GFR for 70 or more years old: 75 mL/min/1.73sq m Chronic Kidney Disease: <60 mL/min/1.73sq m Kidney failure: <15 mL/min/1.73sq m eGFR calculated using average adult body mass. Additional eGFR calculator available at: http://www.Vetr/multiple_crcl_2011.htm Performed By: #### C DP #### [facility] [address] [place] [address] [place] [address] Estimator: Loi Irene MD #### CRP #### [address] [id number] Estimator: Dg Aparicio MD Albumin [Mass/Vol] 3.0 g/dL Low 3.5-5.2 [facility] Comment on above: Performed By: #### C DP #### [facility] [address] [place] [address] [place] [address] Estimator: Loi Irene MD #### CRP #### [address] [address] Estimator: Dg Aparicio MD Albumin/Glob Ratio 0.8 Low 1.0-2.5 [facility] Comment on above: Performed By: #### C DP #### [facility] [address] [place] [address] Estimator: Loi Irene MD #### CRP #### [address] [address] Estimator: Dg Aparicio MD Alkaline Phos 105 U/L High 35-104 [facility] Comment on above: Performed By: #### C DP #### [facility] [address] [place], [place] [phone] Estimator: Loi Irene MD #### CRP #### [facility] [address] [place] [address] Estimator: Dg Aparicio MD ALT [Catalytic activity/Vol] 11 U/L Normal 5-33 [facility] Comment on above: Performed By: #### C DP #### [facility] [address] [place] [address] Estimator: Loi Irene MD #### CRP #### [address] [address] Estimator: Dg Aparicio MD Anion gap [Moles/Vol] 11 mmol/L Normal 9-17 [facility] Comment on above: Performed By: #### C DP #### [address] [place] [address] Estimator: Loi Irene MD #### CRP #### [address] [address] Estimator: Dg Aparicio MD AST [Catalytic activity/Vol] 14 U/L Normal <32 [facility] Comment on above: Performed By: #### C DP #### [facility] [address] [place] [address] [place] [address] Estimator: Loi Irene MD #### CRP #### [address] [address] Estimator: Dg Aparicio MD Bilirubin [Mass/Vol] 0.24 mg/dL Low 0.3-1.2 [facility] Comment on above: Performed By: #### C DP #### [facility] [address] [place] [address] Dr. [place], [place] [phone] Estimator: Loi Irene MD #### CRP #### [address] [address] Estimator: Dg Aparicio MD BUN/CRE Ratio 22 High 9-20 [facility] Comment on above: Performed By: #### C DP #### [facility] [address] [place], [place] [phone] Estimator: Loi Irene MD #### CRP #### [address] [address] Estimator: Dg Aparicio MD Calcium [Mass/Vol] 8.9 mg/dL Normal 8.6-10.4 [facility] Comment on above: Performed By: #### C DP #### [address] [place], [place] [phone] Estimator: Loi Irene MD #### CRP #### [address] [address] Estimator: Dg Aparicio MD Chloride [Moles/Vol] 99 mmol/L Normal 98-107 [facility] Comment on above: Performed By: #### C DP #### [address] [place] [address] Estimator: Loi Irene MD #### CRP #### [address] [address] Estimator: Dg Aparicio MD CO2 [Moles/Vol] 28 mmol/L Normal 20-31 [facility] Comment on above: Performed By: #### C DP #### [facility] [address] [place], [place] [phone] Estimator: Loi Irene MD #### CRP #### [address] [address] Estimator: Dg Aparicio MD Creatinine [Mass/Vol] 1.27 mg/dL High 0.50-0.90 [facility] Comment on above: Performed By: #### C DP #### [facility] [address] [place], [place] [phone] Estimator: Loi Irene MD #### CRP #### [address] [address] Estimator: Dg Aparicio MD GFR, Amer 49 mL/min Low >60 [facility] Comment on above: Performed By: #### C DP #### [facility] [address] [place] [address] Dr. [place], [place] [phone] Estimator: Loi Irene MD #### CRP #### [address] [address] Estimator: Dg Aparicio MD GFR,non Amer 40 mL/min Low >60 [facility] Comment on above: Performed By: #### C DP #### [facility] [address] [place] [address] Dr. [place], [place] [phone] Estimator: Loi Irene MD #### CRP #### [address] [address] Estimator: Dg Aparicio MD Glucose [Mass/Vol] 159 mg/dL High 70-99 [facility] Comment on above: Performed By: #### C DP #### [facility] [address] [place] [address] [place] [address] Estimator: Loi Irene MD #### CRP #### [address] [address] Estimator: Dg Aparicio MD Potassium [Moles/Vol] 3.3 mmol/L Low 3.7-5.3 [facility] Comment on above: Performed By: #### C DP #### [facility] [address] [place] [address] Dr. [place], [place] [phone] Estimator: Loi Ierne MD #### CRP #### [address] [address] Estimator: Dg Aparicio MD Protein [Mass/Vol] 6.7 g/dL Normal 6.4-8.3 [facility] Comment on above: Performed By: #### C DP #### [address] [place], [place] [phone] Estimator: Loi Irene MD #### CRP #### [address] [address] Estimator: Dg Aparicio MD Sodium [Moles/Vol] 138 mmol/L Normal 135-144 [facility] Comment on above: Performed By: #### C DP #### [address] [place], [place] [phone] Estimator: Loi Irene MD #### CRP #### [address] [address] Estimator: Dg Aparicio MD Staging: Normal [facility] Comment on above: Result Comment: Stag e 1: Some kidney damage normal GFR Stage 2: Mild kidney damage GFR 60-89 Stage 3: Moderate kidney damage GFR 30-59 Stage 4: Severe kidney damage GFR 15-29 Stage 5: Severe kidney damage GFR <15 ESRD - chronic treatment by dialysis or transplant Performed By: #### C DP #### [address] [place], [place] [phone] Estimator: Loi Irene MD #### CRP #### [address] [address] Estimator: Dg Aparicio MD Urea nitrogen [Mass/Vol] 28 mg/dL High 8-23 [facility] Comment on above: Performed By: #### C DP #### [address] [place] [address] Estimator: Loi Irene MD #### CRP #### [facility] [address] [place] [address] Estimator: Dg Aparicio MD Comprehensive Metabolic Pane [facility] 10-23-2020 Albumin [Mass/Vol] 3 g/dL Low 3.5 - 5.2 g/dL [place] Albumin/Globulin [Mass ratio] 0.8 {ratio} Low [place] ALP [Catalytic activity/Vol] 105 U/L High 35 - 104 U/L [place] ALT [Catalytic activity/Vol] 11 U/L 5 - 33 U/L [place] Anion gap [Moles/Vol] 11 mmol/L 9 - 17 mmol/L [place] AST [Catalytic activity/Vol] 14 U/L <32 [place] Bilirubin Ql (U) 0.24 mg/dL Low 0.3 - 1.2 mg/dL [place] Bun/Cre Ratio 22 High [place] Calcium [Mass/Vol] 8.9 mg/dL 8.6 - 10. 4 mg/dL [place] Chloride [Moles/Vol] 99 mmol/L 98 - 10 7 mmol/L [place] CO2 [Moles/Vol] 28 mmol/L 20 - 31 mmol/L [place] Creatinine [Mass/Vol] 1.27 mg/dL High 0.5 - 0.9 mg/dL [place] GFR 49 mL/min Low >60 [place] GFR Non- 40 mL/min Low >60 [place] Glucose [Mass/Vol] 159 mg/dL High 70 - 99 mg/dL [place] Interpretation and review of laboratory results Abnormal [place] Potassium [Moles/Vol] 3.3 mmol/L Low 3.7 - 5.3 mmol/L [place] Protein [Mass/Vol] 6.7 g/dL 6.4 - 8.3 g/dL [place] Sodium [Moles/Vol] 138 mmol/L 135 - 144 mmol/L [place] Urea nitrogen [Mass/Vol] 28 mg/dL High 8 - 23 mg/dL [place] Metabolic Panelon 10-23-2020 GFR/1.73 sq M predicted among non-blacks MDRD (S/P/Bld) [Vol rate/Area] [place] Comment on above: Average GFR for 70 o r more years old: 75 mL/min/1.73sq m Chronic Kidney Disease: <60 mL/min/1.73sq m Kidney failure: <15 mL/min/1.73sq m eGFR calculated using average adult body mass. Additional eGFR calculator available at: http://www.Vetr/multiple_crcl_2012.htm Stage 1: Some kidney damage normal GFR Stage 2: Mild kidney damage GFR 60-89 Stage 3: Moderate kidney damage GFR 30-59 Stage 4: Severe kidney damage GFR 15-29 Stage 5: Severe kidney damage GFR <15 ESRD - chronic treatment by dialysis or transplant Sedimentation Rateon 021 Sedimentation Rate 101 mm High 0-20 [facility] Comment on above: Performed By: #### C DP #### [facility] [address] [place] [address] Estimator: Loi Irene MD #### CRP #### [place] [address] [place] [address] Estimator: Dg Aparicio MD Interpretation and review of laboratory results Abnormal [place] Sed Rate 101 mm High 0 - 20 mm [place] C-Reactive Proteinon 020 CRP [Mass/Vol] 33.8 mg/L High 0 - 5 mg/L [place] Interpretation and review of laboratory results Abnormal [place] CBCon 09-26-2020 Erythrocyte distribution width (RBC) [Ratio] 14.3 % 11.8 - 14.4 % [place] Hematocrit (Bld) [Volume fraction] 38.8 % 36.3 - 47.1 % [place] Hemoglobin (Bld) [Mass/Vol] 11.8 g/dL Low 11.9 - 15.1 g/dL [place] Interpretation and review of laboratory results Abnormal [place] MCH (RBC) [Entitic mass] 28.5 pg 25.2 - 33.5 pg [place] MCHC (RBC) [Mass/Vol] 30.4 g/dL 28.4 - 34.8 g/dL [place] MCV (RBC) [Entitic vol] 93.7 fL 82.6 - 102.9 fL [place] Platelet mean volume (Bld) [Entitic vol] 9.9 fL 8.1 - 13.5 fL [place] Platelets (Bld) [#/Vol] 230 10*3/uL [place] RBC (Bld) [#/Vol] 4.14 10*6/uL 3.95 - 5.1 1 m/uL [place] WBC (Bld) [#/Vol] 6.9 10*3/uL [place] WBC (Bld) [#/Vol] 0.0 10*3/uL 0.0 per 10 0 WBC [place] Comprehensive Metabolic Pane [facility] 09-26-2020 Albumin [Mass/Vol] 3.4 g/dL Low 3.5 - 5.2 g/dL [place] Albumin/Globulin [Mass ratio] 1.0 {ratio} [place] ALP [Catalytic activity/Vol] 131 U/L High 35 - 104 U/L [place] ALT [Catalytic activity/Vol] 23 U/L 5 - 33 U/L [place] Anion gap [Moles/Vol] 13 mmol/L 9 - 17 mmol/L [place] AST [Catalytic activity/Vol] 21 U/L <32 [place] Bilirubin Ql (U) 0.36 mg/dL 0.3 - 1.2 mg/dL [place] Bun/Cre Ratio 24 High [place] Calcium [Mass/Vol] 8.7 mg/dL 8.6 - 10. 4 mg/dL [place] Chloride [Moles/Vol] 96 mmol/L Low 98 - 10 7 mmol/L [place] CO2 [Moles/Vol] 28 mmol/L 20 - 31 mmol/L [place] Creatinine [Mass/Vol] 1.27 mg/dL High 0.5 - 0.9 mg/dL [place] GFR 49 mL/min Low >60 [place] GFR Non- 40 mL/min Low >60 [place] Glucose [Mass/Vol] 138 mg/dL High 70 - 99 mg/dL [place] Interpretation and review of laboratory results Abnormal [place] Potassium [Moles/Vol] 3.4 mmol/L Low 3.7 - 5.3 mmol/L [place] Protein [Mass/Vol] 6.7 g/dL 6.4 - 8.3 g/dL [place] Sodium [Moles/Vol] 137 mmol/L 135 - 144 mmol/L [place] Urea nitrogen [Mass/Vol] 31 mg/dL High 8 - 23 mg/dL [place] Magnesiumon 09-26-2020 Magnesium [Mass/Vol] 2.1 mg/dL 1.6 - 2 .6 mg/dL [place] Metabolic Panelon 09-26-2020 GFR/1.73 sq M predicted among non-blacks MDRD (S/P/Bld) [Vol rate/Area] [place] Comment on above: Average GFR for 70 o r more years old: 75 mL/min/1.73sq m Chronic Kidney Disease: <60 mL/min/1.73sq m Kidney failure: <15 mL/min/1.73sq m eGFR calculated using average adult body mass. Additional eGFR calculator available at: http://www.[employer].Shoptimise/multiple_crcl_2012.htm Stage 1: Some kidney damage normal GFR Stage 2: Mild kidney damage GFR 60-89 Stage 3: Moderate kidney damage GFR 30-59 Stage 4: Severe kidney damage GFR 15-29 Stage 5: Severe kidney damage GFR <15 ESRD - chronic treatment by dialysis or transplant Sedimentation Rateon 020 Interpretation and review of laboratory results Abnormal [place] Sed Rate 53 mm High 0 - 20 mm [place] C-Reactive Proteinon CRP [Mass/Vol] 43.7 mg/L High 0 - 5 mg/L [place] Interpretation and review of laboratory results Abnormal [place] CBCon 09-18-2020 Erythrocyte distribution width (RBC) [Ratio] 14.0 % 11.8 - 14.4 % [place] Hematocrit (Bld) [Volume fraction] 37.2 % 36.3 - 47.1 % [place] Hemoglobin (Bld) [Mass/Vol] 11.4 g/dL Low 11.9 - 15.1 g/dL [place] Interpretation and review of laboratory results Abnormal [place] MCH (RBC) [Entitic mass] 29.2 pg 25.2 - 33.5 pg [place] MCHC (RBC) [Mass/Vol] 30.6 g/dL 28.4 - 34.8 g/dL [place] MCV (RBC) [Entitic vol] 95.4 fL 82.6 - 102.9 fL [place] Platelet mean volume (Bld) [Entitic vol] 10.6 fL 8.1 - 13.5 fL [place] Platelets (Bld) [#/Vol] 254 10*3/uL [place] RBC (Bld) [#/Vol] 3.90 10*6/uL Low 3.95 - 5.1 1 m/uL [place] WBC (Bld) [#/Vol] 8.3 10*3/uL [place] WBC (Bld) [#/Vol] 0.0 10*3/uL 0.0 per 10 0 WBC [place] Comprehensive Metabolic Pane riddhi 09-18-2020 Albumin [Mass/Vol] 3.3 g/dL Low 3.5 - 5.2 g/dL [place] Albumin/Globulin [Mass ratio] 1.1 {ratio} [place] ALP [Catalytic activity/Vol] 137 U/L High 35 - 104 U/L [place] ALT [Catalytic activity/Vol] 14 U/L 5 - 33 U/L [place] Anion gap [Moles/Vol] 8 mmol/L Low 9 - 17 mmol/L [place] AST [Catalytic activity/Vol] 12 U/L <32 [place] Bilirubin Ql (U) 0.27 mg/dL Low 0.3 - 1.2 mg/dL [place] Bun/Cre Ratio 30 High [place] Calcium [Mass/Vol] 8.9 mg/dL 8.6 - 10. 4 mg/dL [place] Chloride [Moles/Vol] 95 mmol/L Low 98 - 10 7 mmol/L [place] CO2 [Moles/Vol] 30 mmol/L 20 - 31 mmol/L [place] Creatinine [Mass/Vol] 1.21 mg/dL High 0.5 - 0.9 mg/dL [place] GFR 52 mL/min Low >60 [place] GFR Non- 42 mL/min Low >60 [place] Glucose [Mass/Vol] 206 mg/dL High 70 - 99 mg/dL [place] Interpretation and review of laboratory results Abnormal [place] Potassium [Moles/Vol] 2.9 mmol/L Critically low 3.7 - 5.3 mmol/L [place] Protein [Mass/Vol] 6.4 g/dL 6.4 - 8.3 g/dL [place] Sodium [Moles/Vol] 133 mmol/L Low 135 - 144 mmol/L [place] Urea nitrogen [Mass/Vol] 36 mg/dL High 8 - 23 mg/dL [place] Metabolic Panelon 09-18-2020 GFR/1.73 sq M predicted among non-blacks MDRD (S/P/Bld) [Vol rate/Area] [place] Comment on above: Average GFR for 70 o r more years old: 75 mL/min/1.73sq m Chronic Kidney Disease: <60 mL/min/1.73sq m Kidney failure: <15 mL/min/1.73sq m eGFR calculated using average adult body mass. Additional eGFR calculator available at: http://www.Vetr/multiple_crcl_2012.htm Stage 1: Some kidney damage normal GFR Stage 2: Mild kidney damage GFR 60-89 Stage 3: Moderate kidney damage GFR 30-59 Stage 4: Severe kidney damage GFR 15-29 Stage 5: Severe kidney damage GFR <15 ESRD - chronic treatment by dialysis or transplant Sedimentation Rateon 020 Interpretation and review of laboratory results Abnormal [place] Sed Rate 37 mm High 0 - 20 mm [place] C-Reactive Proteinon CRP [Mass/Vol] 17.9 mg/L High 0 - 5 mg/L [place] Interpretation and review of laboratory results Abnormal [place] CBCon 09-11-2020 Erythrocyte distribution width (RBC) [Ratio] 13.8 % 11.8 - 14.4 % [place] Hematocrit (Bld) [Volume fraction] 37.9 % 36.3 - 47.1 % [place] Hemoglobin (Bld) [Mass/Vol] 11.4 g/dL Low 11.9 - 15.1 g/dL [place] Interpretation and review of laboratory results Abnormal [place] MCH (RBC) [Entitic mass] 28.4 pg 25.2 - 33.5 pg [place] MCHC (RBC) [Mass/Vol] 30.1 g/dL 28.4 - 34.8 g/dL [place] MCV (RBC) [Entitic vol] 94.5 fL 82.6 - 102.9 fL [place] Platelet mean volume (Bld) [Entitic vol] 10.7 fL 8.1 - 13.5 fL [place] Platelets (Bld) [#/Vol] 269 10*3/uL [place] RBC (Bld) [#/Vol] 4.01 10*6/uL 3.95 - 5.1 1 m/uL [place] WBC (Bld) [#/Vol] 0.0 10*3/uL 0.0 per 10 0 WBC [place] WBC (Bld) [#/Vol] 7.1 10*3/uL [place] Comprehensive Metabolic Pane riddhi 09-11-2020 Albumin [Mass/Vol] 3.8 g/dL 3.5 - 5.2 g/dL [place] Albumin/Globulin [Mass ratio] 1.7 {ratio} [place] ALP [Catalytic activity/Vol] 145 U/L High 35 - 104 U/L [place] ALT [Catalytic activity/Vol] 14 U/L 5 - 33 U/L [place] Anion gap [Moles/Vol] 13 mmol/L 9 - 17 mmol/L [place] AST [Catalytic activity/Vol] 12 U/L <32 [place] Bilirubin Ql (U) 0.28 mg/dL Low 0.3 - 1.2 mg/dL [place] Bun/Cre Ratio 35 High [place] Calcium [Mass/Vol] 9.3 mg/dL 8.6 - 10. 4 mg/dL [place] Chloride [Moles/Vol] 98 mmol/L 98 - 10 7 mmol/L [place] CO2 [Moles/Vol] 28 mmol/L 20 - 31 mmol/L [place] Creatinine [Mass/Vol] 1.33 mg/dL High 0.5 - 0.9 mg/dL [place] GFR 46 mL/min Low >60 [place] GFR Non- 38 mL/min Low >60 [place] Glucose [Mass/Vol] 150 mg/dL High 70 - 99 mg/dL [place] Interpretation and review of laboratory results Abnormal [place] Potassium [Moles/Vol] 3.0 mmol/L Low 3.7 - 5.3 mmol/L [place] Protein [Mass/Vol] 6.1 g/dL Low 6.4 - 8.3 g/dL [place] Sodium [Moles/Vol] 139 mmol/L 135 - 144 mmol/L [place] Urea nitrogen [Mass/Vol] 46 mg/dL High 8 - 23 mg/dL [place] Metabolic Panelon 09-11-2020 GFR/1.73 sq M predicted among non-blacks MDRD (S/P/Bld) [Vol rate/Area] [place] Comment on above: Average GFR for 70 o r more years old: 75 mL/min/1.73sq m Chronic Kidney Disease: <60 mL/min/1.73sq m Kidney failure: <15 mL/min/1.73sq m eGFR calculated using average adult body mass. Additional eGFR calculator available at: http://www.Vetr/multiple_crcl_2012.htm Stage 1: Some kidney damage normal GFR Stage 2: Mild kidney damage GFR 60-89 Stage 3: Moderate kidney damage GFR 30-59 Stage 4: Severe kidney damage GFR 15-29 Stage 5: Severe kidney damage GFR <15 ESRD - chronic treatment by dialysis or transplant Sedimentation Rateon 020 Interpretation and review of laboratory results Abnormal [place] Sed Rate 34 mm High 0 - 20 mm [place] C-Reactive Proteinon 020 CRP [Mass/Vol] 11.1 mg/L High 0 - 5 mg/L [place] Interpretation and review of laboratory results Abnormal [place] Comprehensive Metabolic Pane riddhi 09-06-2020 Albumin [Mass/Vol] 3.8 g/dL 3.5 - 5.2 g/dL [place] Albumin/Globulin [Mass ratio] 1.2 {ratio} [place] ALP [Catalytic activity/Vol] 149 U/L High 35 - 104 U/L [place] ALT [Catalytic activity/Vol] 18 U/L 5 - 33 U/L [place] Anion gap [Moles/Vol] 13 mmol/L 9 - 17 mmol/L [place] AST [Catalytic activity/Vol] 18 U/L <32 [place] Bilirubin Ql (U) 0.28 mg/dL Low 0.3 - 1.2 mg/dL [place] Bun/Cre Ratio 33 High [place] Calcium [Mass/Vol] 9.8 mg/dL 8.6 - 10. 4 mg/dL [place] Chloride [Moles/Vol] 97 mmol/L Low 98 - 10 7 mmol/L [place] CO2 [Moles/Vol] 28 mmol/L 20 - 31 mmol/L [place] Creatinine [Mass/Vol] 1.33 mg/dL High 0.5 - 0.9 mg/dL [place] GFR 46 mL/min Low >60 [place] GFR Non- 38 mL/min Low >60 [place] Glucose [Mass/Vol] 209 mg/dL High 70 - 99 mg/dL [place] Interpretation and review of laboratory results Abnormal [place] Potassium [Moles/Vol] 3.0 mmol/L Low 3.7 - 5.3 mmol/L [place] Protein [Mass/Vol] 7.0 g/dL 6.4 - 8.3 g/dL [place] Sodium [Moles/Vol] 138 mmol/L 135 - 144 mmol/L [place] Urea nitrogen [Mass/Vol] 44 mg/dL High 8 - 23 mg/dL [place] Metabolic Panelon 09-06-2020 GFR/1.73 sq M predicted among non-blacks MDRD (S/P/Bld) [Vol rate/Area] [place] Comment on above: Stage 1: Some kidney damage normal GFR Stage 2: Mild kidney damage GFR 60-89 Stage 3: Moderate kidney damage GFR 30-59 Stage 4: Severe kidney damage GFR 15-29 Stage 5: Severe kidney damage GFR <15 ESRD - chronic treatment by dialysis or transplant Average GFR for 70 o r more years old: 75 mL/min/1.73sq m Chronic Kidney Disease: <60 mL/min/1.73sq m Kidney failure: <15 mL/min/1.73sq m eGFR calculated using average adult body mass. Additional eGFR calculator available at: http://www.[employer].Shoptimise/multiple_crcl_2012.htm CBCon 09-05-2020 Erythrocyte distribution width (RBC) [Ratio] 13.9 % 11.8 - 14.4 % [place] Hematocrit (Bld) [Volume fraction] 39.5 % 36.3 - 47.1 % [place] Hemoglobin (Bld) [Mass/Vol] 12.0 g/dL 11.9 - 15.1 g/dL [place] MCH (RBC) [Entitic mass] 29.0 pg 25.2 - 33.5 pg [place] MCHC (RBC) [Mass/Vol] 30.4 g/dL 28.4 - 34.8 g/dL [place] MCV (RBC) [Entitic vol] 95.4 fL 82.6 - 102.9 fL [place] Platelet mean volume (Bld) [Entitic vol] 10.3 fL 8.1 - 13.5 fL [place] Platelets (Bld) [#/Vol] 295 10*3/uL [place] RBC (Bld) [#/Vol] 4.14 10*6/uL 3.95 - 5.1 1 m/uL [place] WBC (Bld) [#/Vol] 7.8 10*3/uL [place] WBC (Bld) [#/Vol] 0.0 10*3/uL 0.0 per 10 0 WBC [place] Comprehensive Metabolic Pane riddhi 09-05-2020 Albumin [Mass/Vol] 3.9 g/dL 3.5 - 5.2 g/dL [place] Albumin/Globulin [Mass ratio] 1.3 {ratio} [place] ALP [Catalytic activity/Vol] 143 U/L High 35 - 104 U/L [place] ALT [Catalytic activity/Vol] 15 U/L 5 - 33 U/L [place] Anion gap [Moles/Vol] 12 mmol/L 9 - 17 mmol/L [place] AST [Catalytic activity/Vol] 17 U/L <32 [place] Bilirubin Ql (U) 0.32 mg/dL 0.3 - 1.2 mg/dL [place] Bun/Cre Ratio 39 High [place] Calcium [Mass/Vol] 9.5 mg/dL 8.6 - 10. 4 mg/dL [place] Chloride [Moles/Vol] 100 mmol/L 98 - 10 7 mmol/L [place] CO2 [Moles/Vol] 29 mmol/L 20 - 31 mmol/L [place] Creatinine [Mass/Vol] 1.29 mg/dL High 0.5 - 0.9 mg/dL [place] GFR 48 mL/min Low >60 [place] GFR Non- 39 mL/min Low >60 [place] Glucose [Mass/Vol] 191 mg/dL High 70 - 99 mg/dL [place] Interpretation and review of laboratory results Abnormal [place] Potassium [Moles/Vol] 3.3 mmol/L Low 3.7 - 5.3 mmol/L [place] Protein [Mass/Vol] 7.0 g/dL 6.4 - 8.3 g/dL [place] Sodium [Moles/Vol] 141 mmol/L 135 - 144 mmol/L [place] Urea nitrogen [Mass/Vol] 50 mg/dL High 8 - 23 mg/dL [place] Metabolic Panelon 09-05-2020 GFR/1.73 sq M predicted among non-blacks MDRD (S/P/Bld) [Vol rate/Area] [place] Comment on above: Stage 1: Some kidney damage normal GFR Stage 2: Mild kidney damage GFR 60-89 Stage 3: Moderate kidney damage GFR 30-59 Stage 4: Severe kidney damage GFR 15-29 Stage 5: Severe kidney damage GFR <15 ESRD - chronic treatment by dialysis or transplant Average GFR for 70 o r more years old: 75 mL/min/1.73sq m Chronic Kidney Disease: <60 mL/min/1.73sq m Kidney failure: <15 mL/min/1.73sq m eGFR calculated using average adult body mass. Additional eGFR calculator available at: http://www.[employer].Shoptimise/multiple_crcl_2012.htm Sedimentation Rateon 020 Interpretation and review of laboratory results Abnormal [place] Sed Rate 38 mm High 0 - 20 mm [place] C-Reactive Proteinon CRP [Mass/Vol] 9.3 mg/L High 0 - 5 mg/L [place] Interpretation and review of laboratory results Abnormal [place] CBCon 08-28-2020 Erythrocyte distribution width (RBC) [Ratio] 13.5 % 11.8 - 14.4 % [place] Hematocrit (Bld) [Volume fraction] 37.9 % 36.3 - 47.1 % [place] Hemoglobin (Bld) [Mass/Vol] 11.9 g/dL 11.9 - 15.1 g/dL [place] MCH (RBC) [Entitic mass] 29.3 pg 25.2 - 33.5 pg [place] MCHC (RBC) [Mass/Vol] 31.4 g/dL 28.4 - 34.8 g/dL [place] MCV (RBC) [Entitic vol] 93.3 fL 82.6 - 102.9 fL [place] Platelet mean volume (Bld) [Entitic vol] 10.1 fL 8.1 - 13.5 fL [place] Platelets (Bld) [#/Vol] 303 10*3/uL [place] RBC (Bld) [#/Vol] 4.06 10*6/uL 3.95 - 5.1 1 m/uL [place] WBC (Bld) [#/Vol] 6.9 10*3/uL [place] WBC (Bld) [#/Vol] 0.0 10*3/uL 0.0 per 10 0 WBC [place] Comprehensive Metabolic Pane riddhi 08-28-2020 Albumin [Mass/Vol] 3.5 g/dL 3.5 - 5.2 g/dL [place] Albumin/Globulin [Mass ratio] 1.2 {ratio} [place] ALP [Catalytic activity/Vol] 134 U/L High 35 - 104 U/L [place] ALT [Catalytic activity/Vol] 12 U/L 5 - 33 U/L [place] Anion gap [Moles/Vol] 11 mmol/L 9 - 17 mmol/L [place] AST [Catalytic activity/Vol] 14 U/L <32 [place] Bilirubin Ql (U) 0.22 mg/dL Low 0.3 - 1.2 mg/dL [place] Bun/Cre Ratio 38 High [place] Calcium [Mass/Vol] 9.1 mg/dL 8.6 - 10. 4 mg/dL [place] Chloride [Moles/Vol] 105 mmol/L 98 - 10 7 mmol/L [place] CO2 [Moles/Vol] 27 mmol/L 20 - 31 mmol/L [place] Creatinine [Mass/Vol] 1.13 mg/dL High 0.5 - 0.9 mg/dL [place] GFR 56 mL/min Low >60 [place] GFR Non- 46 mL/min Low >60 [place] Glucose [Mass/Vol] 174 mg/dL High 70 - 99 mg/dL [place] Interpretation and review of laboratory results Abnormal [place] Potassium [Moles/Vol] 3.5 mmol/L Low 3.7 - 5.3 mmol/L [place] Protein [Mass/Vol] 6.4 g/dL 6.4 - 8.3 g/dL [place] Sodium [Moles/Vol] 143 mmol/L 135 - 144 mmol/L [place] Urea nitrogen [Mass/Vol] 43 mg/dL High 8 - 23 mg/dL [place] Metabolic Panelon 08-28-2020 GFR/1.73 sq M predicted among non-blacks MDRD (S/P/Bld) [Vol rate/Area] [place] Comment on above: Average GFR for 70 o r more years old: 75 mL/min/1.73sq m Chronic Kidney Disease: <60 mL/min/1.73sq m Kidney failure: <15 mL/min/1.73sq m eGFR calculated using average adult body mass. Additional eGFR calculator available at: http://www.[employer].com/multiple_crcl_2012.htm Stage 1: Some kidney damage normal GFR Stage 2: Mild kidney damage GFR 60-89 Stage 3: Moderate kidney damage GFR 30-59 Stage 4: Severe kidney damage GFR 15-29 Stage 5: Severe kidney damage GFR <15 ESRD - chronic treatment by dialysis or transplant Sedimentation Rateon 020 Interpretation and review of laboratory results Abnormal [place] Sed Rate 30 mm High 0 - 20 mm [place] Infectious Disease Office/Cl inic Noteon 08-27-2020 Infectious Disease Office/Clinic Note This is a Telehealth Appointment *This visit was conducted via Telehealth with real time interactive synchronized audio and video communication. This was performed due to the current COVID-19 pandemic in order to minimize exposure to both patients and staff. The patient verbally consented to treatment. The patient understands their rights, the HIPAA risks and that they will be charged accordingly for the services rendered. Chief Complaint Follow up for left hip infection History of Present Illness Telehealth visit. 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 Culture at that time showed Morganella and Klebsiella. On Bactrim through May 28. Also has developed left leg and heel ulcer. Bactrim started 925 for staph aureus from the leg ulcer. She states her left hip is feeling okay. Left leg ulcer looks to be about 1 to 2 cm and dry eschar without redness. She did have UTI symptoms over the weekend and was started on Keflex after urine culture was collected today. No other focal complaints. She denied fever or chills. She has been eating okay. Review of Systems Other review of systems was negative. Physical Exam Vitals & Measurements T: 36.0 ?C (Temporal Artery) RR: 16 BP: 154/74 SpO2: 99 WT: 72.6 kg Vital signs are okay. Sclera and conjunctiva appear to be normal. She was in no acute distress. Affect is good. Breathing is unlabored. Denied abdominal tenderness. Left hip wound okay. Left leg ulcer with dry eschar without cellulitis surrounding. No swelling around the eschar. Additional Vitals Peripheral Pulse Rate: 66 bpm Assessment/Plan 1. Ulcer of left lower leg This appears to be healing okay. We will see her back as needed. 2. Status post hip surgery Overall she seems to be doing okay from the hip standpoint. Gram-negative meenakshi still a concern for relapse. 3. UTI symptoms Currently on cephalexin and antibiotics to be adjusted by longterm physician based on culture. Problem List/Past Medical History Ongoing Chronic kidney disease Hearing loss sensory, bilateral Hyperlipidemia Hypertension Renal osteodystrophy Historical No qualifying data Procedure/Surgical History knee replacement Insertion Intramedullary Nail Femur (Left) (02/10/2020) Medications acetaminophen 650 mg oral tablet, extended release, 1300 mg, 2 tabs, Oral, q8hr, PRN ascorbic acid 500 mg oral capsule, 500 mg, 1 caps, Oral, BID Ativan 0.5 mg oral tablet, 0.5 mg, 1 tabs, Oral, TID busPIRone 5 mg oral tablet, 5 mg, 1 tabs, Oral, BID cephalexin 500 mg oral capsule, 500 mg, 1 caps, Oral, TID desoximetasone 0.25% topical cream, 1 karri, Topical, BID ferrous sulfate 325 mg (65 mg elemental iron) oral delayed release tablet, 325 mg, 1 tabs, Oral, Daily furosemide 20 mg oral tablet, 20 mg, 1 tabs, Oral, Daily GlycoLax oral powder for reconstitution, 17 g, Oral, Daily, PRN hydrALAZINE 25 mg oral tablet, 25 mg, 1 tabs, Oral, BID hydrocodone-acetaminop hen 5 mg-325 mg oral tablet, 1 tabs, Oral, q4hr, PRN hydrocodone-acetaminop hen 5 mg-325 mg oral tablet, 2 tabs, Oral, q4hr, PRN Laurie Packet, 1 packets, Oral, BID Melatonin 5 mg oral tablet, 5 mg, 1 tabs, Oral, HS (at bedtime), PRN pravastatin 10 mg oral tablet, 10 mg, 1 tabs, Oral, HS (at bedtime) SEROquel 25 mg oral tablet, 25 mg, 1 tabs, Oral, BID verapamil 180 mg/12 hours oral tablet, extended release, 180 mg, 1 tabs, Oral, HS (at bedtime), Not taking verapamil 180 mg/12 hours oral tablet, extended release, 180 mg, 1 tabs, Oral, HS (at bedtime) Vitamin B12 with Folic Acid and Iron oral capsule, 1 mg, 1 caps, Oral, Daily Allergies No Known Medication Allergies Social History Tobacco Never (less than 100 in lifetime) Use:. Family History Cancer: Sibling. Lab Results Labs of August 16 showed glucose 104, BUN 49, creatinine 1.24, alkaline phosphatase 143, albumin 3.9, electrolytes okay, white count 9.7, hemoglobin 12.2, platelets 405,000, sedimentation rate 42. CRP was still pending. Sed rate was 54 in May. Diagnostic Results No qualifying data available (XRay) No qualifying data available (CT) No qualifying data available (Ultrasound) No qualifying data available (MRI) Electronically signed by Manuel Kathleen MD 08/27/20 15:20 EST C-reactive protein has come back showing elevation of 26.8 with upper limit of normal being 5. This may have been related to the urinary tract infection. Continue to monitor for any changes in the hip area or the leg ulcer area. Electronically signed by Manuel Kathleen MD 08/29/20 09:08 EST [facility] Microscopic Urinalysison Amorphous, UA NOT REPORTED None [facility] Bacteria, UA 4+ Abnormal None [facility] [place] Casts UA NOT REPORTED /LPF [facility] [place] Crystals, UA 10 TO 20 Abnormal None /HPF [facility] [place] Crystals, UA TRIPLE PHOSPHATE Abnormal None /HPF [facility] [place] Epithelial Cells UA 5 TO 10 [facility] [place] Interpretation and review of laboratory results Abnormal [facility] [place] Mucus, UA NOT REPORTED None [facility] [place] Other Observations UA NOT REPORTED NOT REQ. [facility] [place] RBC (U) [#/Vol] 20 TO 50 [facility] [place] Renal Epithelial, UA NOT REPORTED 0 /HPF [facility] [place] Trichomonas, UA NOT REPORTED None [facility] WBC, UA GREATER THAN 100 [facility] Yeast, UA NOT REPORTED None [facility] [place] - [facility] [place] Provider Letteron 08-27-2020 Provider Letter Justino Dhaliwal DO [address] [place] [address] Re: Meenu Ovidio Date of Visit: 08/27/[address] Dhaliwal, Thank you for your referral to my office. Attached you will find the most recent office visit note. Please call if you have any questions or concerns. Sincerely, Manuel Kathleen MD [address] [place] [address], [facility] [place] [address] The following document(s) were included in the letter: August 27, 2020 15:16:22 EST - (08/27/2020) Telehealth Office Visit Note [facility] Urinalysison 08-27-2020 Bilirubin Urine Negative NEGATIVE [facility] [place] Color, UA YELLOW YELLOW [facility] [place] Glucose, Ur Negative NEGATIVE [facility] [place] Interpretation and review of laboratory results Abnormal [facility] [place] Ketones Ql (U) Negative NEGATIVE [facility] [place] Leukocyte esterase Test strip Ql (U) LARGE Abnormal NEGATIVE [facility] [place] Nitrite, Urine Negative NEGATIVE [facility] [place] pH, UA >=9.0 [facility] Protein (U) [Mass/Vol] 2+ Abnormal NEGATIVE [facility] Specific [place], UA 1.010 [facility] [place] Turbidity UA CLOUDY Abnormal CLEAR [facility] [place] Urinalysis Comments NOT REPORTED [facility] Urine Hgb Negative NEGATIVE [facility] [place] Urobilinogen, Urine Normal Normal [facility] [place] C-Reactive Proteinon 020 CRP [Mass/Vol] 26.8 mg/L High 0 - 5 mg/L [facility] Interpretation and review of laboratory results Abnormal [facility] CBCon 08-21-2020 Erythrocyte distribution width (RBC) [Ratio] 13.7 % 11.8 - 14.4 % [place] Hematocrit (Bld) [Volume fraction] 40.0 % 36.3 - 47.1 % [place] Hemoglobin (Bld) [Mass/Vol] 11.9 g/dL 11.9 - 15.1 g/dL [place] MCH (RBC) [Entitic mass] 29.0 pg 25.2 - 33.5 pg [place] MCHC (RBC) [Mass/Vol] 29.8 g/dL 28.4 - 34.8 g/dL [place] MCV (RBC) [Entitic vol] 97.3 fL 82.6 - 102.9 fL [place] Platelet mean volume (Bld) [Entitic vol] 10.3 fL 8.1 - 13.5 fL [place] [place] Platelets (Bld) [#/Vol] 380 10*3/uL [place] RBC (Bld) [#/Vol] 4.11 10*6/uL 3.95 - 5.1 1 m/uL [place] WBC (Bld) [#/Vol] 0.0 10*3/uL 0.0 per 10 0 WBC [place] WBC (Bld) [#/Vol] 6.8 10*3/uL [place] Comprehensive Metabolic Pane riddhi 08-21-2020 Albumin [Mass/Vol] 4 g/dL 3.5 - 5.2 g/dL [place] Albumin/Globulin [Mass ratio] 1.2 {ratio} [place] ALP [Catalytic activity/Vol] 143 U/L High 35 - 104 U/L [place] ALT [Catalytic activity/Vol] 13 U/L 5 - 33 U/L [place] Anion gap [Moles/Vol] 14 mmol/L 9 - 17 mmol/L [place] AST [Catalytic activity/Vol] 14 U/L <32 [place] Bilirubin Ql (U) 0.18 mg/dL Low 0.3 - 1.2 mg/dL [place] Bun/Cre Ratio 38 High [place] Calcium [Mass/Vol] 10.0 mg/dL 8.6 - 10. 4 mg/dL [place] Chloride [Moles/Vol] 102 mmol/L 98 - 10 7 mmol/L [place] CO2 [Moles/Vol] 27 mmol/L 20 - 31 mmol/L [place] Creatinine [Mass/Vol] 1.57 mg/dL High 0.5 - 0.9 mg/dL [place] GFR 38 mL/min Low >60 [place] GFR Non- 31 mL/min Low >60 [place] Glucose [Mass/Vol] 123 mg/dL High 70 - 99 mg/dL [place] Interpretation and review of laboratory results Abnormal [place] Potassium [Moles/Vol] 3.8 mmol/L 3.7 - 5.3 mmol/L [place] Protein [Mass/Vol] 7.4 g/dL 6.4 - 8.3 g/dL [place] Sodium [Moles/Vol] 143 mmol/L 135 - 144 mmol/L [place] Urea nitrogen [Mass/Vol] 60 mg/dL High 8 - 23 mg/dL [place] Metabolic Panelon 08-21-2020 GFR/1.73 sq M predicted among non-blacks MDRD (S/P/Bld) [Vol rate/Area] [place] Comment on above: Average GFR for 70 o r more years old: 75 mL/min/1.73sq m Chronic Kidney Disease: <60 mL/min/1.73sq m Kidney failure: <15 mL/min/1.73sq m eGFR calculated using average adult body mass. Additional eGFR calculator available at: http://www.[employer].Shoptimise/multiple_crcl_2012.htm Stage 1: Some kidney damage normal GFR Stage 2: Mild kidney damage GFR 60-89 Stage 3: Moderate kidney damage GFR 30-59 Stage 4: Severe kidney damage GFR 15-29 Stage 5: Severe kidney damage GFR <15 ESRD - chronic treatment by dialysis or transplant Sedimentation Rateon Interpretation and review of laboratory results Abnormal [place] Sed Rate 38 mm High 0 - 20 mm [place] C-Reactive Proteinon CRP [Mass/Vol] 14.9 mg/L High 0 - 5 mg/L [place] Interpretation and review of laboratory results Abnormal [place] CBCon 08-16-2020 Erythrocyte distribution width (RBC) [Ratio] 13.9 % 11.8 - 14.4 % [place] Hematocrit (Bld) [Volume fraction] 40.8 % 36.3 - 47.1 % [place] Hemoglobin (Bld) [Mass/Vol] 12.2 g/dL 11.9 - 15.1 g/dL [place] MCH (RBC) [Entitic mass] 28.8 pg 25.2 - 33.5 pg [place] MCHC (RBC) [Mass/Vol] 29.9 g/dL 28.4 - 34.8 g/dL [place] MCV (RBC) [Entitic vol] 96.5 fL 82.6 - 102.9 fL [place] Platelet mean volume (Bld) [Entitic vol] 9.7 fL 8.1 - 13.5 fL [place] Platelets (Bld) [#/Vol] 405 10*3/uL [place] RBC (Bld) [#/Vol] 4.23 10*6/uL 3.95 - 5.1 1 m/uL [place] WBC (Bld) [#/Vol] 0.0 10*3/uL 0.0 per 10 0 WBC [place] WBC (Bld) [#/Vol] 9.7 10*3/uL [place] Comprehensive Metabolic Pane riddhi 08-16-2020 Albumin [Mass/Vol] 3.9 g/dL 3.5 - 5.2 g/dL [place] Albumin/Globulin [Mass ratio] 1.3 {ratio} [place] ALP [Catalytic activity/Vol] 143 U/L High 35 - 104 U/L [place] ALT [Catalytic activity/Vol] 13 U/L 5 - 33 U/L [place] Anion gap [Moles/Vol] 14 mmol/L 9 - 17 mmol/L [place] AST [Catalytic activity/Vol] 17 U/L <32 [place] Bilirubin Ql (U) 0.26 mg/dL Low 0.3 - 1.2 mg/dL [place] Bun/Cre Ratio 40 High [place] Calcium [Mass/Vol] 9.4 mg/dL 8.6 - 10. 4 mg/dL [place] Chloride [Moles/Vol] 102 mmol/L 98 - 10 7 mmol/L [place] CO2 [Moles/Vol] 25 mmol/L 20 - 31 mmol/L [place] Creatinine [Mass/Vol] 1.24 mg/dL High 0.5 - 0.9 mg/dL [place] GFR 50 mL/min Low >60 [place] GFR Non- 41 mL/min Low >60 [place] Glucose [Mass/Vol] 104 mg/dL High 70 - 99 mg/dL [place] Interpretation and review of laboratory results Abnormal [place] Potassium [Moles/Vol] 4.2 mmol/L 3.7 - 5.3 mmol/L [place] Protein [Mass/Vol] 7.0 g/dL 6.4 - 8.3 g/dL [place] Sodium [Moles/Vol] 141 mmol/L 135 - 144 mmol/L [place] Urea nitrogen [Mass/Vol] 49 mg/dL High 8 - 23 mg/dL [place] Metabolic Panelon 08-16-2020 GFR/1.73 sq M predicted among non-blacks MDRD (S/P/Bld) [Vol rate/Area] [place] Comment on above: Average GFR for 70 o r more years old: 75 mL/min/1.73sq m Chronic Kidney Disease: <60 mL/min/1.73sq m Kidney failure: <15 mL/min/1.73sq m eGFR calculated using average adult body mass. Additional eGFR calculator available at: http://www.[employer].Shoptimise/multiple_crcl_2012.htm Stage 1: Some kidney damage normal GFR Stage 2: Mild kidney damage GFR 60-89 Stage 3: Moderate kidney damage GFR 30-59 Stage 4: Severe kidney damage GFR 15-29 Stage 5: Severe kidney damage GFR <15 ESRD - chronic treatment by dialysis or transplant Sedimentation Rateon 08-16-2 020 Interpretation and review of laboratory results Abnormal [place] Sed Rate 42 mm High 0 - 20 mm [place] CBCon 08-09-2020 Erythrocyte distribution width (RBC) [Ratio] 13.7 % 11.8 - 14.4 % [place] Hematocrit (Bld) [Volume fraction] 37.1 % 36.3 - 47.1 % [place] Hemoglobin (Bld) [Mass/Vol] 11.4 g/dL Low 11.9 - 15.1 g/dL [place] Interpretation and review of laboratory results Abnormal [place] MCH (RBC) [Entitic mass] 29.5 pg 25.2 - 33.5 pg [place] MCHC (RBC) [Mass/Vol] 30.7 g/dL 28.4 - 34.8 g/dL [place] MCV (RBC) [Entitic vol] 96.1 fL 82.6 - 102.9 fL [place] Platelet mean volume (Bld) [Entitic vol] 10.0 fL 8.1 - 13.5 fL [place] Platelets (Bld) [#/Vol] 334 10*3/uL [place] RBC (Bld) [#/Vol] 3.86 10*6/uL Low 3.95 - 5.1 1 m/uL [place] WBC (Bld) [#/Vol] 10.0 10*3/uL [place] WBC (Bld) [#/Vol] 0.0 10*3/uL 0.0 per 10 0 WBC [place] Creatinine, Random Urineon 1 10-09-2019 Creatinine, Ur 25.9 mg/dL Low 28 - 217 mg/dL [place] Interpretation and review of laboratory results Abnormal [place] Ferritinon 08-09-2020 Ferritin [Mass/Vol] 179 ug/L High 13 - 150 ug/L [place] Iron and TIBCon 08-09-2020 Iron [Mass/Vol] 38 ug/dL 37 - 145 ug/dL [place] Iron Saturation 13 % Low 20 - 55 % [place] TIBC 291 ug/dL 250 - 450 ug/dL [place] UIBC 253 ug/dL 112 - 347 ug/dL [place] Magnesiumon 08-09-2020 Magnesium [Mass/Vol] 2.1 mg/dL 1.6 - 2 .6 mg/dL [place] Metabolic Panelon 08-09-2020 GFR/1.73 sq M predicted among non-blacks MDRD (S/P/Bld) [Vol rate/Area] [place] Comment on above: Average GFR for 70 o r more years old: 75 mL/min/1.73sq m Chronic Kidney Disease: <60 mL/min/1.73sq m Kidney failure: <15 mL/min/1.73sq m eGFR calculated using average adult body mass. Additional eGFR calculator available at: http://www.[employer]/multiple_crcl_2012.htm Stage 1: Some kidney damage normal GFR Stage 2: Mild kidney damage GFR 60-89 Stage 3: Moderate kidney damage GFR 30-59 Stage 4: Severe kidney damage GFR 15-29 Stage 5: Severe kidney damage GFR <15 ESRD - chronic treatment by dialysis or transplant Microscopic Urinalysison Amorphous, UA NOT REPORTED None [place] Bacteria, UA 1+ Abnormal None [place] Casts UA NOT REPORTED /LPF [place] Crystals, UA NOT REPORTED None /HPF [place] Epithelial Cells UA 5 TO 10 [place] Interpretation and review of laboratory results Abnormal [place] Mucus, UA NOT REPORTED None [place] Other Observations UA NOT REPORTED NOT REQ. M [place] RBC (U) [#/Vol] 2 TO 5 [place] Renal Epithelial, UA NOT REPORTED 0 /HPF [place] Trichomonas, UA NOT REPORTED None [place] WBC, UA 10 TO 20 [place] Yeast, UA NOT REPORTED None [place] Otheron 08-09-2020 Interpretation and review of laboratory results Abnormal [place] PTH, Intacton 08-09-2020 Pth Intact 40.39 pg/mL 15 - 65 pg/mL [place] Comment on above: SAMPLES FROM PATIENT S ROUTINELY RECEIVING HIGH DOSE BIOTIN THERAPY MAY SHOW FALSELY DEPRESSED RESULTS. ADDITIONAL INFORMATION MAY BE REQUIRED FOR DIAGNOSIS. Protein, urine, randomon Protein (U) [Mass/Vol] 10 mg/dL [place] Comment on above: No normal range esta blished. Renal Function Panelon 08-09 Albumin [Mass/Vol] 3.7 g/dL 3.5 - 5.2 g/dL [place] Anion gap [Moles/Vol] 14 mmol/L 9 - 17 mmol/L [place] Bun/Cre Ratio 38 High [place] Calcium [Mass/Vol] 9.2 mg/dL 8.6 - 10. 4 mg/dL [place] Chloride [Moles/Vol] 102 mmol/L 98 - 10 7 mmol/L [place] CO2 [Moles/Vol] 24 mmol/L 20 - 31 mmol/L [place] Creatinine [Mass/Vol] 1.07 mg/dL High 0.5 - 0.9 mg/dL [place] GFR 60 mL/min Low >60 [place] GFR Non- 49 mL/min Low >60 [place] Glucose [Mass/Vol] 111 mg/dL High 70 - 99 mg/dL [place] Interpretation and review of laboratory results Abnormal [place] Phosphate [Mass/Vol] 3.2 mg/dL 2.6 - 4 .5 mg/dL [place] Potassium [Moles/Vol] 3.9 mmol/L 3.7 - 5.3 mmol/L [place] Sodium [Moles/Vol] 140 mmol/L 135 - 144 mmol/L [place] Urea nitrogen [Mass/Vol] 41 mg/dL High 8 - 23 mg/dL [place] Uric Acidon 08-09-2020 Urate [Mass/Vol] 4.5 mg/dL 2.4 - 5.7 mg/dL [place] Urinalysis Reflex to Culture on 08-09-2020 Bilirubin Urine Negative NEGATIVE [place] Color, UA YELLOW YELLOW [place] Glucose, Ur Negative NEGATIVE [place] Interpretation and review of laboratory results Abnormal [place] Ketones Ql (U) Negative NEGATIVE [place] Leukocyte esterase Test strip Ql (U) LARGE Abnormal NEGATIVE [place] Nitrite, Urine Negative NEGATIVE [place] pH, UA 7.0 [place] Protein (U) [Mass/Vol] Negative NEGATIVE [place] Specific [place], UA 1.015 [place] Turbidity UA CLEAR CLEAR [place] Urinalysis Comments NOT REPORTED [place] Urine Hgb TRACE Abnormal NEGATIVE [place] Urobilinogen, Urine Normal Normal [place] CBCon 07-18-2020 Erythrocyte distribution width (RBC) [Ratio] 14.7 % High 11.8 - 14.4 % [place] Hematocrit (Bld) [Volume fraction] 34.6 % Low 36.3 - 47.1 % [place] Hemoglobin (Bld) [Mass/Vol] 10.3 g/dL Low 11.9 - 15.1 g/dL [place] Interpretation and review of laboratory results Abnormal [place] MCH (RBC) [Entitic mass] 30.1 pg 25.2 - 33.5 pg [place] MCHC (RBC) [Mass/Vol] 29.8 g/dL 28.4 - 34.8 g/dL [place] MCV (RBC) [Entitic vol] 101.2 fL 82.6 - 102.9 fL [place] Platelet mean volume (Bld) [Entitic vol] 9.9 fL 8.1 - 13.5 fL [place] Platelets (Bld) [#/Vol] 328 10*3/uL [place] RBC (Bld) [#/Vol] 3.42 10*6/uL Low 3.95 - 5.1 1 m/uL [place] WBC (Bld) [#/Vol] 0.0 10*3/uL 0.0 per 10 0 WBC [place] WBC (Bld) [#/Vol] 7.5 10*3/uL [place] Creatinine, Random Urineon 1 Creatinine, Ur 97.1 mg/dL 28 - 217 mg/dL [place] Magnesiumon 07-18-2020 Magnesium [Mass/Vol] 2.2 mg/dL 1.6 - 2 .6 mg/dL [place] Metabolic Panelon 07-18-2020 GFR/1.73 sq M predicted among non-blacks MDRD (S/P/Bld) [Vol rate/Area] [place] Comment on above: Average GFR for 70 o r more years old: 75 mL/min/1.73sq m Chronic Kidney Disease: <60 mL/min/1.73sq m Kidney failure: <15 mL/min/1.73sq m eGFR calculated using average adult body mass. Additional eGFR calculator available at: http://www.[employer].Shoptimise/multiple_crcl_2011.htm Stage 1: Some kidney damage normal GFR Stage 2: Mild kidney damage GFR 60-89 Stage 3: Moderate kidney damage GFR 30-59 Stage 4: Severe kidney damage GFR 15-29 Stage 5: Severe kidney damage GFR <15 ESRD - chronic treatment by dialysis or transplant Microscopic Urinalysison Amorphous, UA NOT REPORTED None [place] Bacteria, UA NOT REPORTED None [place] Casts UA NOT REPORTED /LPF [place] Crystals, UA CALCIUM OXALATE Abnormal None /HPF [place] Crystals, UA 0 TO 2 Abnormal None /HPF [place] Epithelial Cells UA 2 TO 5 [place] Interpretation and review of laboratory results Abnormal [place] Mucus, UA NOT REPORTED None [place] Other Observations UA NOT REPORTED NOT REQ. M [place] RBC (U) [#/Vol] 0 TO 2 [place] Renal Epithelial, UA NOT REPORTED 0 /HPF [place] Trichomonas, UA NOT REPORTED None [place] WBC, UA None [place] Yeast, UA NOT REPORTED None [place] PTH, Intacton 07-18-2020 Pth Intact 58.77 pg/mL 15 - 65 pg/mL [place] Comment on above: SAMPLES FROM PATIENT S ROUTINELY RECEIVING HIGH DOSE BIOTIN THERAPY MAY SHOW FALSELY DEPRESSED RESULTS. ADDITIONAL INFORMATION MAY BE REQUIRED FOR DIAGNOSIS. Protein, urine, randomon Protein (U) [Mass/Vol] 19 mg/dL [place] Comment on above: No normal range esta blished. Renal Function Panelon 07-18 Albumin [Mass/Vol] 3.3 g/dL Low 3.5 - 5.2 g/dL [place] Anion gap [Moles/Vol] 16 mmol/L 9 - 17 mmol/L [place] Bun/Cre Ratio 27 High [place] Calcium [Mass/Vol] 8.6 mg/dL 8.6 - 10. 4 mg/dL [place] Chloride [Moles/Vol] 102 mmol/L 98 - 10 7 mmol/L [place] CO2 [Moles/Vol] 25 mmol/L 20 - 31 mmol/L [place] Creatinine [Mass/Vol] 1.17 mg/dL High 0.5 - 0.9 mg/dL [place] GFR 54 mL/min Low >60 [place] GFR Non- 44 mL/min Low >60 [place] Glucose [Mass/Vol] 97 mg/dL 70 - 99 mg/dL [place] Interpretation and review of laboratory results Abnormal [place] Phosphate [Mass/Vol] 4.3 mg/dL 2.6 - 4 .5 mg/dL [place] Potassium [Moles/Vol] 3.9 mmol/L 3.7 - 5.3 mmol/L [place] Sodium [Moles/Vol] 143 mmol/L 135 - 144 mmol/L [place] Urea nitrogen [Mass/Vol] 32 mg/dL High 8 - 23 mg/dL [place] Uric Acidon 07-18-2020 Urate [Mass/Vol] 5.1 mg/dL 2.4 - 5.7 mg/dL [place] Urinalysis Reflex to Culture on 07-18-2020 Bilirubin Urine Negative NEGATIVE [place] Color, UA YELLOW YELLOW [place] Glucose, Ur Negative NEGATIVE [place] Interpretation and review of laboratory results Abnormal [place] Ketones Ql (U) Negative NEGATIVE [place] Leukocyte esterase Test strip Ql (U) Negative NEGATIVE [place] Nitrite, Urine Negative NEGATIVE [place] pH, UA 5.5 [place] Protein (U) [Mass/Vol] Negative NEGATIVE [place] Specific [place], UA 1.025 High [place] Turbidity UA CLEAR CLEAR [place] Urinalysis Comments NOT REPORTED [place] Urine Hgb Negative NEGATIVE [place] Urobilinogen, Urine Normal Normal [place] Basic Metabolic Panelon 06-27 Anion gap [Moles/Vol] 12 mmol/L 9 - 17 mmol/L [place] Bun/Cre Ratio 35 High [place] Calcium [Mass/Vol] 8.7 mg/dL 8.6 - 10. 4 mg/dL [place] Chloride [Moles/Vol] 105 mmol/L 98 - 10 7 mmol/L [place] CO2 [Moles/Vol] 24 mmol/L 20 - 31 mmol/L [place] Creatinine [Mass/Vol] 1.02 mg/dL High 0.5 - 0.9 mg/dL [place] GFR >60 >60 mL/min [place] GFR Non- 52 mL/min Low >60 [place] Glucose [Mass/Vol] 98 mg/dL 70 - 99 mg/dL [place] Interpretation and review of laboratory results Abnormal [place] Potassium [Moles/Vol] 4.0 mmol/L 3.7 - 5.3 mmol/L [place] Sodium [Moles/Vol] 141 mmol/L 135 - 144 mmol/L [place] Urea nitrogen [Mass/Vol] 36 mg/dL High 8 - 23 mg/dL [place] Metabolic Panelon 07-09-2020 GFR/1.73 sq M predicted among non-blacks MDRD (S/P/Bld) [Vol rate/Area] [place] Comment on above: Stage 1: Some kidney damage normal GFR Stage 2: Mild kidney damage GFR 60-89 Stage 3: Moderate kidney damage GFR 30-59 Stage 4: Severe kidney damage GFR 15-29 Stage 5: Severe kidney damage GFR <15 ESRD - chronic treatment by dialysis or transplant Average GFR for 70 o r more years old: 75 mL/min/1.73sq m Chronic Kidney Disease: <60 mL/min/1.73sq m Kidney failure: <15 mL/min/1.73sq m eGFR calculated using average adult body mass. Additional eGFR calculator available at: http://www.[employer].Shoptimise/multiple_crcl_2012.htm Basic Metabolic Panelon Anion gap [Moles/Vol] 11 mmol/L 9 - 17 mmol/L [place] Bun/Cre Ratio 36 High [place] Calcium [Mass/Vol] 9.0 mg/dL 8.6 - 10. 4 mg/dL [place] Chloride [Moles/Vol] 104 mmol/L 98 - 10 7 mmol/L [place] CO2 [Moles/Vol] 23 mmol/L 20 - 31 mmol/L [place] Creatinine [Mass/Vol] 1.59 mg/dL High 0.5 - 0.9 mg/dL [place] GFR 38 mL/min Low >60 [place] GFR Non- 31 mL/min Low >60 [place] Glucose [Mass/Vol] 82 mg/dL 70 - 99 mg/dL [place] Interpretation and review of laboratory results Abnormal [place] Potassium [Moles/Vol] 4.1 mmol/L 3.7 - 5.3 mmol/L [place] Sodium [Moles/Vol] 138 mmol/L 135 - 144 mmol/L [place] Urea nitrogen [Mass/Vol] 58 mg/dL High 8 - 23 mg/dL [place] Metabolic Panelon 07-01-2020 GFR/1.73 sq M predicted among non-blacks MDRD (S/P/Bld) [Vol rate/Area] [place] Comment on above: Stage 1: Some kidney damage normal GFR Stage 2: Mild kidney damage GFR 60-89 Stage 3: Moderate kidney damage GFR 30-59 Stage 4: Severe kidney damage GFR 15-29 Stage 5: Severe kidney damage GFR <15 ESRD - chronic treatment by dialysis or transplant Average GFR for 70 o r more years old: 75 mL/min/1.73sq m Chronic Kidney Disease: <60 mL/min/1.73sq m Kidney failure: <15 mL/min/1.73sq m eGFR calculated using average adult body mass. Additional eGFR calculator available at: http://www.[employer]/multiple_crcl_2012.htm Basic Metabolic Panelon 05-29 Anion gap [Moles/Vol] 12 mmol/L 9 - 17 mmol/L [place] Bun/Cre Ratio 36 High [place] Calcium [Mass/Vol] 8.9 mg/dL 8.6 - 10. 4 mg/dL [place] Chloride [Moles/Vol] 101 mmol/L 98 - 10 7 mmol/L [place] CO2 [Moles/Vol] 23 mmol/L 20 - 31 mmol/L [place] Creatinine [Mass/Vol] 1.34 mg/dL High 0.5 - 0.9 mg/dL [place] GFR 46 mL/min Low >60 [place] GFR Non- 38 mL/min Low >60 [place] Glucose [Mass/Vol] 112 mg/dL High 70 - 99 mg/dL [place] Interpretation and review of laboratory results Abnormal [place] Potassium [Moles/Vol] 4.5 mmol/L 3.7 - 5.3 mmol/L [place] Sodium [Moles/Vol] 136 mmol/L 135 - 144 mmol/L [place] Urea nitrogen [Mass/Vol] 48 mg/dL High 8 - 23 mg/dL [place] Infectious Disease Office/Cl inic Noteon 06-25-2020 Infectious Disease Office/Clinic Note This is a Telehealth Appointment *This visit was conducted via Telehealth with real time interactive synchronized audio and video communication. This was performed due to the current COVID-19 pandemic in order to minimize exposure to both patients and staff. The patient verbally consented to treatment. The patient understands their rights, the HIPAA risks and that they will be charged accordingly for the services rendered. Chief Complaint 2 week f/u for Left Hip Infection. History of Present Illness Telehealth visit. 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 Culture at that time showed Morganella and Klebsiella. On Bactrim through May 28. Also has developed left leg and heel ulcer. Left hip is doing okay. Left leg ulcer is been stable. She has pain in the foot due to a heel ulcer. Dr. Martínez started her on Bactrim on 06/21 due to a staph aureus growth noted on June 19 culture from the lower leg. She is tolerating antibiotic okay. She is eating well. No diarrhea. No vaginitis. She is doing physical therapy. She does have a boot to protect the heel. Review of Systems Other review of system negative. Physical Exam Vitals & Measurements T: 36.8 ?C (Oral) RR: 16 BP: 142/70 HT: 152.4 cm WT: 75.02 kg BMI: 32.3 Vital signs okay. She is talkative today. She is hard of hearing. Sclera and conjunctiva look to be okay. Breathing seems unlabored. Dressings were just redone on the leg and foot so were not taken down. By description from nursing staff they have been slowly getting better but not any worse. Additional Vitals Peripheral Pulse Rate: 77 bpm Assessment/Plan 1. Wound infection complicating hardware From a symptom standpoint her left hip is doing okay. 2. Ulcer of left lower leg Staph aureus noted on culture and she is back on Bactrim. Basic metabolic panel ordered for today. Physician Comments Recheck in 2 weeks. Problem List/Past Medical History Ongoing Chronic kidney disease Hearing loss sensory, bilateral Hyperlipidemia Hypertension Renal osteodystrophy Historical No qualifying data Procedure/Surgical History knee replacement Insertion Intramedullary Nail Femur (Left) (02/10/2020) Medications ALPRAZolam 0.25 mg oral tablet, 0.25 mg, 1 tabs, Oral, HS (at bedtime), Not taking ascorbic acid 500 mg oral capsule, 500 mg, 1 caps, Oral, BID Ativan 0.5 mg oral tablet, 0.5 mg, 1 tabs, Oral, TID busPIRone 5 mg oral tablet, 5 mg, 1 tabs, Oral, BID calcitriol 0.25 mcg oral capsule, 0.25 mcg, 1 caps, Oral, Mo//Fr, Not taking desoximetasone 0.25% topical cream, 1 karri, Topical, BID hydrocodone-acetaminop hen 5 mg-325 mg oral tablet, 1 tabs, Oral, q4hr, PRN hydrocodone-acetaminop hen 5 mg-325 mg oral tablet, 2 tabs, Oral, q4hr, PRN Lovenox 40 mg/0.4 mL injectable solution, 40 mg, Subcutaneous, Daily meclizine 25 mg oral tablet, 25 mg, 1 tabs, Oral, TID, PRN, Not taking Melatonin 5 mg oral tablet, 5 mg, 1 tabs, Oral, HS (at bedtime), PRN pravastatin 10 mg oral tablet, 10 mg, 1 tabs, Oral, HS (at bedtime) SEROquel 25 mg oral tablet, 25 mg, 1 tabs, Oral, BID verapamil 180 mg/12 hours oral tablet, extended release, 180 mg, 1 tabs, Oral, HS (at bedtime), Not taking verapamil 180 mg/12 hours oral tablet, extended release, 180 mg, 1 tabs, Oral, HS (at bedtime) Vitamin B12 with Folic Acid and Iron oral capsule, 1 mg, 1 caps, Oral, Daily Allergies No Known Medication Allergies Social History Tobacco Never (less than 100 in lifetime) Use:. Family History Cancer: Sibling. Diagnostic Results No qualifying data available (XRay) No qualifying data available (CT) No qualifying data available (Ultrasound) No qualifying data available (MRI) Electronically signed by Frannie KUMAR, Manuel Brody 06/25/20 09:51 EDT [facility] Metabolic Panelon 06-25-2020 GFR/1.73 sq M predicted among non-blacks MDRD (S/P/Bld) [Vol rate/Area] [facility] [place] Comment on above: Stage 1: Some kidney damage normal GFR Stage 2: Mild kidney damage GFR 60-89 Stage 3: Moderate kidney damage GFR 30-59 Stage 4: Severe kidney damage GFR 15-29 Stage 5: Severe kidney damage GFR <15 ESRD - chronic treatment by dialysis or transplant Average GFR for 70 o r more years old: 75 mL/min/1.73sq m Chronic Kidney Disease: <60 mL/min/1.73sq m Kidney failure: <15 mL/min/1.73sq m eGFR calculated using average adult body mass. Additional eGFR calculator available at: http://www.[employer].Shoptimise/multiple_crcl_2012.htm Provider Letteron 06-25-2020 Provider Letter Justino Dhaliwal DO [address] [place] [address] Re: Meenu Ovidio Date of Visit: 06/25/[address] Dhaliwal, Thank you for your referral to my office. Attached you will find the most recent office visit note. Please call if you have any questions or concerns. Sincerely, Manuel Kathleen MD [address] [place] [address], [place] [address] The following document(s) were included in the letter: June 25, 2020 09:49:14 EDT - (06/25/2020) Telehealth Office Visit Note Normal [facility] Lipid Panelon 06-19-2020 Cholesterol [Mass/Vol] 151 mg/dL <200 [place] Comment on above: Cholesterol Guidelines: <200 Desirable 200-240 Borderline >240 Undesirable Cholesterol in HDL [Mass/Vol] 58 mg/dL >40 [place] Comment on above: HDL Guidelines: <40 Undesirable 40-59 Borderline >59 Desirable Cholesterol in LDL [Mass/Vol] 72 mg/dL 0 - 130 mg/dL [place] Comment on above: LDL Guidelines: <100 Desirable 100-129 Near to/above Desirable 130-159 Borderline >159 Undesirable Direct (measured) LDL and calculated LDL are not interchangeable tests. Cholesterol in VLDL [Mass/Vol] NOT REPORTED 1 - 30 mg/dL [place] Cholesterol.total/Vani sterol in HDL [Mass ratio] 2.6 {ratio} <5 [place] Triglyceride [Mass/Vol] 107 mg/dL <150 M [place], [place] Comment on above: Triglyceride Guidelines: <150 Desirable 150-199 Borderline 200-499 High >499 Very high Based on AHA Guidelines for fasting triglyceride, June 2012. C-Reactive Proteinon 020 CRP [Mass/Vol] 3.9 mg/L 0 - 5 mg/L [place] CBCon 06-12-2020 Erythrocyte distribution width (RBC) [Ratio] 17.4 % High 11.8 - 14.4 % [place] Hematocrit (Bld) [Volume fraction] 31.3 % Low 36.3 - 47.1 % [place] Hemoglobin (Bld) [Mass/Vol] 9.3 g/dL Low 11.9 - 15.1 g/dL [place] Interpretation and review of laboratory results Abnormal [place] MCH (RBC) [Entitic mass] 30.1 pg 25.2 - 33.5 pg [place] MCHC (RBC) [Mass/Vol] 29.7 g/dL 28.4 - 34.8 g/dL [place] MCV (RBC) [Entitic vol] 101.3 fL 82.6 - 102.9 fL [place] Platelet mean volume (Bld) [Entitic vol] 9.5 fL 8.1 - 13.5 fL [place] Platelets (Bld) [#/Vol] 382 10*3/uL [place] RBC (Bld) [#/Vol] 3.09 10*6/uL Low 3.95 - 5.1 1 m/uL [place] WBC (Bld) [#/Vol] 0.0 10*3/uL 0.0 per 10 0 WBC [place] WBC (Bld) [#/Vol] 7.3 10*3/uL [place] Comprehensive Metabolic Pane riddhi 06-12-2020 Albumin [Mass/Vol] 2.9 g/dL Low 3.5 - 5.2 g/dL [place] Albumin/Globulin [Mass ratio] 1.1 {ratio} [place] ALP [Catalytic activity/Vol] 155 U/L High 35 - 104 U/L [place] ALT [Catalytic activity/Vol] 25 U/L 5 - 33 U/L [place] Anion gap [Moles/Vol] 10 mmol/L 9 - 17 mmol/L [place] AST [Catalytic activity/Vol] 22 U/L <32 [place] Bilirubin Ql (U) 0.24 mg/dL Low 0.3 - 1.2 mg/dL [place] Bun/Cre Ratio 23 High [place] Calcium [Mass/Vol] 8.6 mg/dL 8.6 - 10. 4 mg/dL [place] Chloride [Moles/Vol] 102 mmol/L 98 - 10 7 mmol/L [place] CO2 [Moles/Vol] 26 mmol/L 20 - 31 mmol/L [place] Creatinine [Mass/Vol] 1.03 mg/dL High 0.5 - 0.9 mg/dL [place] GFR >60 >60 mL/min [place] GFR Non- 51 mL/min Low >60 [place] Glucose [Mass/Vol] 110 mg/dL High 70 - 99 mg/dL [place] Interpretation and review of laboratory results Abnormal [place] Potassium [Moles/Vol] 4.1 mmol/L 3.7 - 5.3 mmol/L [place] Protein [Mass/Vol] 5.5 g/dL Low 6.4 - 8.3 g/dL [place] Sodium [Moles/Vol] 138 mmol/L 135 - 144 mmol/L [place] Urea nitrogen [Mass/Vol] 24 mg/dL High 8 - 23 mg/dL [place] Infectious Disease Office/Cl inic Noteon 06-12-2020 Infectious Disease Office/Clinic Note This is a Telehealth Appointment *This visit was conducted via Telehealth with real time interactive synchronized audio and video communication. This was performed due to the current COVID-19 pandemic in order to minimize exposure to both patients and staff. The patient verbally consented to treatment. The patient understands their rights, the HIPAA risks and that they will be charged accordingly for the services rendered. Chief Complaint 2 week f/u Left hip infection History of Present Illness TeleHealth visit. Her left hip is feeling okay on the left side. She has been to wound clinic and Dr. Martínez has debrided and changed dressings on the left lower leg ulcer. She is having labs done weekly. She states she is eating okay. She denies fever. She is still not allowed to bear weight. Currently off Bactrim. Review of Systems She denies diarrhea. She states she is urinating a lot, she is incontinent at night. Other review of system negative. Physical Exam Vitals at the longterm of been okay. She appears to be comfortable overall. I did not look up the leg wound today as dressing is in place. Additional Vitals No qualifying data available. Assessment/Plan 1. Wound infection complicating hardware At this point we will keep off antibiotics and recheck this week in comparison to prior weeks. I will do another telehealth visit in 2 weeks. 2. Ulcer of left lower leg Continue to follow-up with Dr. Yousif in [place] wound clinic. Problem List/Past Medical History Ongoing Chronic kidney disease Hearing loss sensory, bilateral Hyperlipidemia Hypertension Renal osteodystrophy Historical No qualifying data Procedure/Surgical History knee replacement Insertion Intramedullary Nail Femur (Left) (02/10/2020) Medications ALPRAZolam 0.25 mg oral tablet, 0.25 mg, 1 tabs, Oral, HS (at bedtime), Not taking ascorbic acid 500 mg oral capsule, 500 mg, 1 caps, Oral, BID Ativan 0.5 mg oral tablet, 0.5 mg, 1 tabs, Oral, TID busPIRone 5 mg oral tablet, 5 mg, 1 tabs, Oral, BID calcitriol 0.25 mcg oral capsule, 0.25 mcg, 1 caps, Oral, Mo//Fr, Not taking desoximetasone 0.25% topical cream, 1 karri, Topical, BID hydrocodone-acetaminop hen 5 mg-325 mg oral tablet, 1 tabs, Oral, q4hr, PRN hydrocodone-acetaminop hen 5 mg-325 mg oral tablet, 2 tabs, Oral, q4hr, PRN Lovenox 40 mg/0.4 mL injectable solution, 40 mg, Subcutaneous, Daily meclizine 25 mg oral tablet, 25 mg, 1 tabs, Oral, TID, PRN, Not taking Melatonin 5 mg oral tablet, 5 mg, 1 tabs, Oral, HS (at bedtime), PRN pravastatin 10 mg oral tablet, 10 mg, 1 tabs, Oral, HS (at bedtime) SEROquel 25 mg oral tablet, 25 mg, 1 tabs, Oral, BID verapamil 180 mg/12 hours oral tablet, extended release, 180 mg, 1 tabs, Oral, HS (at bedtime), Not taking verapamil 180 mg/12 hours oral tablet, extended release, 180 mg, 1 tabs, Oral, HS (at bedtime) Vitamin B12 with Folic Acid and Iron oral capsule, 1 mg, 1 caps, Oral, Daily Allergies No Known Medication Allergies Social History Tobacco Never (less than 100 in lifetime) Use:. Family History Cancer: Sibling. Lab Results [place] studies of June 06 showed a white count of 8000 hemoglobin 9 platelet count 3 and 56,000 glucose 109 BUN 23 creatinine 1.01 potassium 3.9 alkaline phosphatase 170 ALT AST bilirubin okay albumin is at 2.9 C-reactive protein was 6.5 with a normal of 5 sedimentation rate was 58 this is increased from 44 on May 30. C-reactive protein had improved from 7.6 on May 30. X-ray readings are noted from June 06. Left hip arthroplasty hardware is intact. Age-indeterminate fragmentation with destructive changes of the proximal femur. No prior x-rays for comparison. Dr. Lockett reviewed the x-ray and recommended no change. Diagnostic Results No qualifying data available (XRay) No qualifying data available (CT) No qualifying data available (Ultrasound) No qualifying data available (MRI) Electronically signed by Frannie KUMAR, Manuel Brody 06/12/20 14:48 EDT [facility] Metabolic Panelon 06-12-2020 GFR/1.73 sq M predicted among non-blacks MDRD (S/P/Bld) [Vol rate/Area] [place] Comment on above: Average GFR for 70 o r more years old: 75 mL/min/1.73sq m Chronic Kidney Disease: <60 mL/min/1.73sq m Kidney failure: <15 mL/min/1.73sq m eGFR calculated using average adult body mass. Additional eGFR calculator available at: http://www.Vetr/multiple_crcl_2012.htm Stage 1: Some kidney damage normal GFR Stage 2: Mild kidney damage GFR 60-89 Stage 3: Moderate kidney damage GFR 30-59 Stage 4: Severe kidney damage GFR 15-29 Stage 5: Severe kidney damage GFR <15 ESRD - chronic treatment by dialysis or transplant Sedimentation Rateon Interpretation and review of laboratory results Abnormal [place] Sed Rate 54 mm High 0 - 20 mm [place] C-Reactive Proteinon 020 CRP [Mass/Vol] 6.5 mg/L High 0 - 5 mg/L [place] Interpretation and review of laboratory results Abnormal [place] [facility]Con 06-06-2020 Erythrocyte distribution width (RBC) [Ratio] 17.4 % High 11.8 - 14.4 % [place] Hematocrit (Bld) [Volume fraction] 30.6 % Low 36.3 - 47.1 % [place] Hemoglobin (Bld) [Mass/Vol] 9.0 g/dL Low 11.9 - 15.1 g/dL [place] Interpretation and review of laboratory results Abnormal [place] MCH (RBC) [Entitic mass] 30.2 pg 25.2 - 33.5 pg [place] MCHC (RBC) [Mass/Vol] 29.4 g/dL 28.4 - 34.8 g/dL [place] MCV (RBC) [Entitic vol] 102.7 fL 82.6 - 102.9 fL [place] Platelet mean volume (Bld) [Entitic vol] 9.4 fL 8.1 - 13.5 fL [place] Platelets (Bld) [#/Vol] 356 10*3/uL [place] RBC (Bld) [#/Vol] 2.98 10*6/uL Low 3.95 - 5.1 1 m/uL [place] WBC (Bld) [#/Vol] 8.0 10*3/uL [place] WBC (Bld) [#/Vol] 0.0 10*3/uL 0.0 per 10 0 WBC [place] Comprehensive Metabolic Pane riddhi 06-06-2020 Albumin [Mass/Vol] 2.9 g/dL Low 3.5 - 5.2 g/dL [place] Albumin/Globulin [Mass ratio] 1.2 {ratio} [place] ALP [Catalytic activity/Vol] 170 U/L High 35 - 104 U/L [place] ALT [Catalytic activity/Vol] 13 U/L 5 - 33 U/L [place] Anion gap [Moles/Vol] 11 mmol/L 9 - 17 mmol/L [place] AST [Catalytic activity/Vol] 18 U/L <32 [place] Bilirubin Ql (U) 0.28 mg/dL Low 0.3 - 1.2 mg/dL [place] Bun/Cre Ratio 23 High [place] Calcium [Mass/Vol] 8.5 mg/dL Low 8.6 - 10. 4 mg/dL [place] Chloride [Moles/Vol] 106 mmol/L 98 - 10 7 mmol/L [place] CO2 [Moles/Vol] 23 mmol/L 20 - 31 mmol/L [place] Creatinine [Mass/Vol] 1.01 mg/dL High 0.5 - 0.9 mg/dL [place] GFR >60 >60 mL/min [place] GFR Non- 52 mL/min Low >60 [place] Glucose [Mass/Vol] 109 mg/dL High 70 - 99 mg/dL [place] Interpretation and review of laboratory results Abnormal [place] Potassium [Moles/Vol] 3.9 mmol/L 3.7 - 5.3 mmol/L [place] Protein [Mass/Vol] 5.4 g/dL Low 6.4 - 8.3 g/dL [place] Sodium [Moles/Vol] 140 mmol/L 135 - 144 mmol/L [place] Urea nitrogen [Mass/Vol] 23 mg/dL 8 - 23 mg/dL [place] Metabolic Panelon 06-06-2020 GFR/1.73 sq M predicted among non-blacks MDRD (S/P/Bld) [Vol rate/Area] [place] Comment on above: Average GFR for 70 o r more years old: 75 mL/min/1.73sq m Chronic Kidney Disease: <60 mL/min/1.73sq m Kidney failure: <15 mL/min/1.73sq m eGFR calculated using average adult body mass. Additional eGFR calculator available at: http://www.[employer].Shoptimise/multiple_crcl_2012.htm Stage 1: Some kidney damage normal GFR Stage 2: Mild kidney damage GFR 60-89 Stage 3: Moderate kidney damage GFR 30-59 Stage 4: Severe kidney damage GFR 15-29 Stage 5: Severe kidney damage GFR <15 ESRD - chronic treatment by dialysis or transplant Sedimentation Rateon 09-10-2 020 Interpretation and review of laboratory results Abnormal [place] Sed Rate 58 mm High 0 - 20 mm [place] C-Reactive Proteinon CRP [Mass/Vol] 7.6 mg/L High 0 - 5 mg/L [place] Interpretation and review of laboratory results Abnormal [place] CBC Auto Differentialon Basophils (Bld) [#/Vol] 0.00 10*3/uL [place] Basophils/100 WBC (Bld) 0 % 0 - 2 % M [place] Differential Type NOT REPORTED [place] Eosinophils (Bld) [#/Vol] 0.43 10*3/uL [place] Eosinophils/100 WBC (Bld) 8 % High 1 - 4 % [place] Erythrocyte distribution width (RBC) [Ratio] 17.0 % High 11.8 - 14.4 % [place] Hematocrit (Bld) [Volume fraction] 32.6 % Low 36.3 - 47.1 % [place] Hemoglobin (Bld) [Mass/Vol] 9.4 g/dL Low 11.9 - 15.1 g/dL [place] Immature granulocytes (Bld) [#/Vol] 1 % High 0 [place] Immature granulocytes (Bld) [#/Vol] 0.05 10*3/uL [place] Interpretation and review of laboratory results Abnormal [place] Lymphocytes (Bld) [#/Vol] 2.11 10*3/uL [place] Lymphocytes/100 WBC (Bld) 39 % 24 - 43 % [place] MCH (RBC) [Entitic mass] 29.5 pg 25.2 - 33.5 pg [place] MCHC (RBC) [Mass/Vol] 28.8 g/dL 28.4 - 34.8 g/dL [place] MCV (RBC) [Entitic vol] 102.2 fL 82.6 - 102.9 fL [place] Monocytes (Bld) [#/Vol] 0.59 10*3/uL [place] Monocytes/100 WBC (Bld) 11 % 3 - 12 % [place] Morphology [place] (Bld) [Interp] HYPOCHROMASIA PRESENT [place] Platelet mean volume (Bld) [Entitic vol] 9.3 fL 8.1 - 13.5 fL [place] Platelets (Bld) [#/Vol] 398 10*3/uL [place] Platelets (Bld) [#/Vol] NOT REPORTED [place] RBC (Bld) [#/Vol] 3.19 10*6/uL Low 3.95 - 5.1 1 m/uL [place] RBC morphology finding Nom (Bld) NOT REPORTED [place] Segmented neutrophils/100 WBC (Bld) 41 % 36 - 65 % [place] Segs Absolute 2.22 [place] WBC (Bld) [#/Vol] 5.4 10*3/uL [place] WBC (Bld) [#/Vol] 0.0 10*3/uL 0.0 per 10 0 WBC [place] WBC Morphology NOT REPORTED [place] Comprehensive Metabolic Pane riddhi 05-30-2020 Albumin [Mass/Vol] 2.8 g/dL Low 3.5 - 5.2 g/dL [place] Albumin/Globulin [Mass ratio] 1.0 {ratio} [place] ALP [Catalytic activity/Vol] 147 U/L High 35 - 104 U/L [place] ALT [Catalytic activity/Vol] 7 U/L 5 - 33 U/L [place] Anion gap [Moles/Vol] 10 mmol/L 9 - 17 mmol/L [place] AST [Catalytic activity/Vol] 13 U/L <32 [place] Bilirubin Ql (U) 0.23 mg/dL Low 0.3 - 1.2 mg/dL [place] Bun/Cre Ratio 16 [place] Calcium [Mass/Vol] 8.5 mg/dL Low 8.6 - 10. 4 mg/dL [place] Chloride [Moles/Vol] 104 mmol/L 98 - 10 7 mmol/L [place] CO2 [Moles/Vol] 23 mmol/L 20 - 31 mmol/L [place] Creatinine [Mass/Vol] 1.3 mg/dL High 0.5 - 0.9 mg/dL [place] GFR 48 mL/min Low >60 [place] GFR Non- 39 mL/min Low >60 [place] Glucose [Mass/Vol] 101 mg/dL High 70 - 99 mg/dL [place] Interpretation and review of laboratory results Abnormal [place] Potassium [Moles/Vol] 4.1 mmol/L 3.7 - 5.3 mmol/L [place] Protein [Mass/Vol] 5.6 g/dL Low 6.4 - 8.3 g/dL [place] Sodium [Moles/Vol] 137 mmol/L 135 - 144 mmol/L [place] Urea nitrogen [Mass/Vol] 21 mg/dL 8 - 23 mg/dL [place] Metabolic Panelon 05-30-2020 GFR/1.73 sq M predicted among non-blacks MDRD (S/P/Bld) [Vol rate/Area] [place] Comment on above: Stage 1: Some kidney damage normal GFR Stage 2: Mild kidney damage GFR 60-89 Stage 3: Moderate kidney damage GFR 30-59 Stage 4: Severe kidney damage GFR 15-29 Stage 5: Severe kidney damage GFR <15 ESRD - chronic treatment by dialysis or transplant Average GFR for 70 o r more years old: 75 mL/min/1.73sq m Chronic Kidney Disease: <60 mL/min/1.73sq m Kidney failure: <15 mL/min/1.73sq m eGFR calculated using average adult body mass. Additional eGFR calculator available at: http://www.[employer].Shoptimise/multiple_crcl_2012.htm Sedimentation Rateon 020 Interpretation and review of laboratory results Abnormal [place] Sed Rate 44 mm High 0 - 20 mm [facility] [place] Infectious Disease Office/Cl inic Noteon 05-29-2020 Infectious Disease Office/Clinic Note This is a Telehealth Appointment *This visit was conducted via Telehealth with real time interactive synchronized audio and video communication. This was performed due to the current COVID-19 pandemic in order to minimize exposure to both patients and staff. The patient verbally consented to treatment. The patient understands their rights, the HIPAA risks and that they will be charged accordingly for the services rendered. History of Present Illness Telehealth visit for left hip wound infection after removal of hardware for nonhealing fracture with total hip arthroplasty. She has been on Bactrim. Cultures grew Morganella morganii and Klebsiella pneumonia. Overall she is doing okay except she does have a wound in the back of the left leg above the ankle. This is painful. The hip wound is coming along okay. No fever or chills. She states appetites okay. She has no diarrhea. She has urinated okay. No yeast infection. She did have confusion where she was taking off clothes and throwing things. She had a consultation with behavioral medicine. It has gotten better in the last couple of days. Review of Systems Other review system negative. Physical Exam She is sitting up comfortably in the chair. Sclera and conjunctiva look to be okay. Her breathing is unlabored. Abdomen is nontender. Left hip wound by nursing report is okay. On the back of the left distal leg few centimeters above the ankle he is a what appears to be a pressure ulcer approximately 2 cm and stage II-III with eschar and some necrotic areas. There is some erythema around the edges. Additional Vitals No qualifying data available. Assessment/Plan 1. Wound infection complicating hardware Elevated sed rate CRP concerning for deeper infection. We will recheck labs this week and every week. 2. Ulcer of left lower leg Consult with wound clinic in [place]. 3. Chronic kidney disease Continue to monitor labs. Encouraged fluid intake, especially being on Bactrim. Anemia possibly related to kidney disease plus postop change. Problem List/Past Medical History Ongoing Chronic kidney disease Hearing loss sensory, bilateral Hyperlipidemia Hypertension Renal osteodystrophy Historical No qualifying data Procedure/Surgical History knee replacement Insertion Intramedullary Nail Femur (Left) (02/10/2020) Medications ALPRAZolam 0.25 mg oral tablet, 0.25 mg, 1 tabs, Oral, HS (at bedtime) ascorbic acid 500 mg oral capsule, 500 mg, 1 caps, Oral, BID busPIRone 5 mg oral tablet, 5 mg, 1 tabs, Oral, BID calcitriol 0.25 mcg oral capsule, 0.25 mcg, 1 caps, Oral, Mo/We/Fr desoximetasone 0.25% topical cream, 1 karri, Topical, BID Lovenox 40 mg/0.4 mL injectable solution, 40 mg, Subcutaneous, Daily meclizine 25 mg oral tablet, 25 mg, 1 tabs, Oral, TID, PRN Melatonin 5 mg oral tablet, 5 mg, 1 tabs, Oral, HS (at bedtime), PRN pravastatin 10 mg oral tablet, 10 mg, 1 tabs, Oral, HS (at bedtime) sulfamethoxazole-trime thoprim 800 mg-160 mg oral tablet, 1 tabs, Oral, q12hr verapamil 180 mg/12 hours oral tablet, extended release, 180 mg, 1 tabs, Oral, HS (at bedtime) verapamil 180 mg/12 hours oral tablet, extended release, 180 mg, 1 tabs, Oral, HS (at bedtime) Vitamin B12 with Folic Acid and Iron oral capsule, 1 mg, 1 caps, Oral, Daily Allergies No Known Medication Allergies Social History Tobacco Never (less than 100 in lifetime) Use:. Family History Cancer: Sibling. Lab Results May 23 labs showed creatinine 1.53 with a BUN 16 alkaline phosphatase 152 ALT 11 AST 27 albumin 3.0 Kos 87 CBC showed hemoglobin 8.5 platelet count 516,000 MCV 98.6 white count 10.1 sedimentation rate was 70 and C-reactive protein was 52 with normal being up to 5 Diagnostic Results No qualifying data available (XRay) No qualifying data available (CT) No qualifying data available (Ultrasound) No qualifying data available (MRI) Electronically signed by Manuel Kathleen MD 05/29/20 14:48 EDT [facility] C-Reactive Proteinon 020 CRP [Mass/Vol] 52.4 mg/L High 0 - 5 mg/L [place] Interpretation and review of laboratory results Abnormal [place] CBC Auto Differentialon 04-28 Basophils (Bld) [#/Vol] 0.03 10*3/uL [place] Basophils/100 WBC (Bld) 0 % 0 - 2 % [place] Differential Type NOT REPORTED [place] Eosinophils (Bld) [#/Vol] 0.27 10*3/uL [place] Eosinophils/100 WBC (Bld) 3 % 1 - 4 % [place] Erythrocyte distribution width (RBC) [Ratio] 16.5 % High 11.8 - 14.4 % [place] Hematocrit (Bld) [Volume fraction] 27.8 % Low 36.3 - 47.1 % [place] Hemoglobin (Bld) [Mass/Vol] 8.5 g/dL Low 11.9 - 15.1 g/dL [place] Immature granulocytes (Bld) [#/Vol] 0.09 10*3/uL [place] Immature granulocytes (Bld) [#/Vol] 1 % High 0 [place] Interpretation and review of laboratory results Abnormal [place] Lymphocytes (Bld) [#/Vol] 1.64 10*3/uL [place] Lymphocytes/100 WBC (Bld) 16 % Low 24 - 43 % [place] MCH (RBC) [Entitic mass] 30.1 pg 25.2 - 33.5 pg [place] MCHC (RBC) [Mass/Vol] 30.6 g/dL 28.4 - 34.8 g/dL [place] MCV (RBC) [Entitic vol] 98.6 fL 82.6 - 102.9 fL [place] Monocytes (Bld) [#/Vol] 1.02 10*3/uL [place] Monocytes/100 WBC (Bld) 10 % 3 - 12 % [place] Platelet mean volume (Bld) [Entitic vol] 9.2 fL 8.1 - 13.5 fL [place] Platelets (Bld) [#/Vol] NOT REPORTED [place] Platelets (Bld) [#/Vol] 516 10*3/uL [place] RBC (Bld) [#/Vol] 2.82 10*6/uL Low 3.95 - 5.1 1 m/uL [place] RBC morphology finding Nom (Bld) NOT REPORTED [place] Segmented neutrophils/100 WBC (Bld) 70 % High 36 - 65 % [place] Segs Absolute 7.00 [place] WBC (Bld) [#/Vol] 0.0 10*3/uL 0.0 per 10 0 WBC [place] WBC (Bld) [#/Vol] 10.1 10*3/uL [place] WBC Morphology NOT REPORTED [place] Comprehensive Metabolic Pane riddhi 05-23-2020 Albumin [Mass/Vol] 3 g/dL Low 3.5 - 5.2 g/dL [place] Albumin/Globulin [Mass ratio] 1.1 {ratio} [place] ALP [Catalytic activity/Vol] 152 U/L High 35 - 104 U/L [place] ALT [Catalytic activity/Vol] 11 U/L 5 - 33 U/L [place] Anion gap [Moles/Vol] 12 mmol/L 9 - 17 mmol/L [place] AST [Catalytic activity/Vol] 27 U/L <32 [place] Bilirubin Ql (U) 0.37 mg/dL 0.3 - 1.2 mg/dL [place] Bun/Cre Ratio 10 [place] Calcium [Mass/Vol] 8.4 mg/dL Low 8.6 - 10. 4 mg/dL [place] Chloride [Moles/Vol] 103 mmol/L 98 - 10 7 mmol/L [place] CO2 [Moles/Vol] 23 mmol/L 20 - 31 mmol/L [place] Creatinine [Mass/Vol] 1.53 mg/dL High 0.5 - 0.9 mg/dL [place] GFR 39 mL/min Low >60 [place] GFR Non- 32 mL/min Low >60 [place] Glucose [Mass/Vol] 87 mg/dL 70 - 99 mg/dL [place] Interpretation and review of laboratory results Abnormal [place] Potassium [Moles/Vol] 3.7 mmol/L 3.7 - 5.3 mmol/L [place] Protein [Mass/Vol] 5.7 g/dL Low 6.4 - 8.3 g/dL [place] Sodium [Moles/Vol] 138 mmol/L 135 - 144 mmol/L [place] Urea nitrogen [Mass/Vol] 16 mg/dL 8 - 23 mg/dL [place] Metabolic Panelon 05-23-2020 GFR/1.73 sq M predicted among non-blacks MDRD (S/P/Bld) [Vol rate/Area] [place] Comment on above: Average GFR for 70 o r more years old: 75 mL/min/1.73sq m Chronic Kidney Disease: <60 mL/min/1.73sq m Kidney failure: <15 mL/min/1.73sq m eGFR calculated using average adult body mass. Additional eGFR calculator available at: http://www.[employer]/multiple_crcl_2012.htm Stage 1: Some kidney damage normal GFR Stage 2: Mild kidney damage GFR 60-89 Stage 3: Moderate kidney damage GFR 30-59 Stage 4: Severe kidney damage GFR 15-29 Stage 5: Severe kidney damage GFR <15 ESRD - chronic treatment by dialysis or transplant Sedimentation Rateon 020 Interpretation and review of laboratory results Abnormal [place] Sed Rate 70 mm High 0 - 20 mm [place] Infectious Disease Office/Cl inic Noteon 05-22-2020 Infectious Disease Office/Clinic Note This is a Telehealth Appointment *This visit was conducted via Telehealth with real time interactive synchronized audio and video communication. This was performed due to the current COVID-19 pandemic in order to minimize exposure to both patients and staff. The patient verbally consented to treatment. The patient understands their rights, the HIPAA risks and that they will be charged accordingly for the services rendered. Chief Complaint Left hip infection History of Present Illness 84-year-old seen on a telehealth visit today. She suffered a left hip fracture in January of this year and underwent open reduction internal fixation on February 08. She was discharged to longterm on February 14. She made progress and was discharged home the . However within 3 days on the she was readmitted to longterm. 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 She was taken to surgery again on May [address] Lockett. She was converted from a compression screw to a total hip replacement. Cultures done on the are growing Morganella morganii and Klebsiella pneumonia. Before surgery she was noted to have a UTI and was on Cipro which finished today. She continues on Bactrim through 05 28. She apparently had been quite low alert and oriented but after this most recent admission she has not been her usual self. She did not have any particular complaints to me. History was obtained from the nursing staff. She has tolerated the Bactrim okay. No rashes have been noted. No diarrhea has been noted. No yeast infection is been noted. She does have lab ordered for 2 days from now. Wound is closed and not showing any drainage. Her appetite is not normal. No fever has been noted. Pulse oxes have been okay. Review of Systems Full review of system not able to be done with the patient. Discussed with the nursing staff. Physical Exam Vitals & Measurements T: 36.7 ?C (Oral) RR: 18 BP: 110/48 SpO2: 96 HT: 152.4 cm WT: 70.1 kg BMI: 30.18 I reports she has been afebrile and vitals have been okay. She appears somewhat subdued. Pupils equal and sclera and conjunctiva appear to be okay on video. Her breathing is unlabored. Her left hip wound with sutures in place appears to be dry with no significant erythema or swelling. Cultures as noted showed Morganella morganii and Klebsiella pneumoniae Additional Vitals Peripheral Pulse Rate: 82 bpm Assessment/Plan 1. Wound infection complicating hardware Multiple organisms noted from the time of surgery. We will need to clarify whether these are deep cultures or at the surface. We will check a CBC sed rate CRP as well as a basic panel tomorrow. She does have chronic kidney disease history and Bactrim may not be the best choice in the setting. I will see her back in 1 week on telehealth. 2. Chronic kidney disease Labs as noted. Problem List/Past Medical History Ongoing Chronic kidney disease Hearing loss sensory, bilateral Hyperlipidemia Hypertension Renal osteodystrophy Historical No qualifying data Procedure/Surgical History knee replacement Insertion Intramedullary Nail Femur (Left) (02/10/2020) Medications ALPRAZolam 0.25 mg oral tablet, 0.25 mg, 1 tabs, Oral, HS (at bedtime) ascorbic acid 500 mg oral capsule, 500 mg, 1 caps, Oral, BID busPIRone 5 mg oral tablet, 5 mg, 1 tabs, Oral, BID calcitriol 0.25 mcg oral capsule, 0.25 mcg, 1 caps, Oral, Mo//Fr desoximetasone 0.25% topical cream, 1 karri, Topical, BID Lovenox 40 mg/0.4 mL injectable solution, 40 mg, Subcutaneous, Daily meclizine 25 mg oral tablet, 25 mg, 1 tabs, Oral, TID, PRN Melatonin 5 mg oral tablet, 5 mg, 1 tabs, Oral, HS (at bedtime), PRN pravastatin 10 mg oral tablet, 10 mg, 1 tabs, Oral, HS (at bedtime) sulfamethoxazole-trime thoprim 800 mg-160 mg oral tablet, 1 tabs, Oral, q12hr verapamil 180 mg/12 hours oral tablet, extended release, 180 mg, 1 tabs, Oral, HS (at bedtime) verapamil 180 mg/12 hours oral tablet, extended release, 180 mg, 1 tabs, Oral, HS (at bedtime) Vitamin B12 with Folic Acid and Iron oral capsule, 1 mg, 1 caps, Oral, Daily Allergies No Known Medication Allergies Social History Tobacco Never (less than 100 in lifetime) Use:. Family History Cancer: Sibling. Lab Results Creatinine Lvl 1.51 mg/dL 02/15/2020 05:23 EDT (High) Diagnostic Results No qualifying data available (XRay) No qualifying data available (CT) No qualifying data available (Ultrasound) No qualifying data available (MRI) Electronically signed by Manuel Kathleen MD 05/22/20 17:13 EDT Normal [facility] CBC Auto Differentialon 04-28 Basophils (Bld) [#/Vol] 10*3/uL [place] Basophils/100 WBC (Bld) 0 % 0 - 2 % [place] Differential Type NOT REPORTED [place] Eosinophils (Bld) [#/Vol] 0.26 10*3/uL [place] Eosinophils/100 WBC (Bld) 3 % 1 - 4 % [place] Erythrocyte distribution width (RBC) [Ratio] 15.0 % High 11.8 - 14.4 % [place] Hematocrit (Bld) [Volume fraction] 27.8 % Low 36.3 - 47.1 % [place] Hemoglobin (Bld) [Mass/Vol] 8.4 g/dL Low 11.9 - 15.1 g/dL [place] Immature granulocytes (Bld) [#/Vol] 0.11 10*3/uL [place] Immature granulocytes (Bld) [#/Vol] 1 % High 0 [place] Interpretation and review of laboratory results Abnormal [place] Lymphocytes (Bld) [#/Vol] 1.84 10*3/uL [place] Lymphocytes/100 WBC (Bld) 19 % Low 24 - 43 % [place] MCH (RBC) [Entitic mass] 29.6 pg 25.2 - 33.5 pg [place] MCHC (RBC) [Mass/Vol] 30.2 g/dL 28.4 - 34.8 g/dL [place] MCV (RBC) [Entitic vol] 97.9 fL 82.6 - 102.9 fL [place] Monocytes (Bld) [#/Vol] 1.08 10*3/uL [place] Monocytes/100 WBC (Bld) 11 % 3 - 12 % [place] Platelet mean volume (Bld) [Entitic vol] 9.4 fL 8.1 - 13.5 fL [place] Platelets (Bld) [#/Vol] NOT REPORTED [place] Platelets (Bld) [#/Vol] 431 10*3/uL [place] RBC (Bld) [#/Vol] 2.84 10*6/uL Low 3.95 - 5.1 1 m/uL [place] RBC morphology finding Nom (Bld) NOT REPORTED [place] Segmented neutrophils/100 WBC (Bld) 66 % High 36 - 65 % [place] Segs Absolute 6.43 [place] WBC (Bld) [#/Vol] 0.0 10*3/uL 0.0 per 10 0 WBC [place] WBC (Bld) [#/Vol] 9.7 10*3/uL [place] WBC Morphology NOT REPORTED [place] Comprehensive Metabolic Pane riddhi 05-17-2020 Albumin [Mass/Vol] 2.2 g/dL Low 3.5 - 5.2 g/dL [place] Albumin/Globulin [Mass ratio] 0.7 {ratio} Low [place] ALP [Catalytic activity/Vol] 102 U/L 35 - 104 U/L [place] ALT [Catalytic activity/Vol] 7 U/L 5 - 33 U/L [place] Anion gap [Moles/Vol] 8 mmol/L Low 9 - 17 mmol/L [place] AST [Catalytic activity/Vol] 14 U/L <32 [place] Bilirubin Ql (U) 0.27 mg/dL Low 0.3 - 1.2 mg/dL [place] Bun/Cre Ratio 17 [place] Calcium [Mass/Vol] 8.4 mg/dL Low 8.6 - 10. 4 mg/dL [place] Chloride [Moles/Vol] 100 mmol/L 98 - 10 7 mmol/L [place] CO2 [Moles/Vol] 26 mmol/L 20 - 31 mmol/L [place] Creatinine [Mass/Vol] 1.01 mg/dL High 0.5 - 0.9 mg/dL [place] GFR >60 >60 mL/min [place] GFR Non- 52 mL/min Low >60 [place] Glucose [Mass/Vol] 124 mg/dL High 70 - 99 mg/dL [place] Interpretation and review of laboratory results Abnormal [place] Potassium [Moles/Vol] 4.1 mmol/L 3.7 - 5.3 mmol/L [place] Protein [Mass/Vol] 5.2 g/dL Low 6.4 - 8.3 g/dL [place] Sodium [Moles/Vol] 134 mmol/L Low 135 - 144 mmol/L [place] Urea nitrogen [Mass/Vol] 17 mg/dL 8 - 23 mg/dL [place] Metabolic Panelon 05-17-2020 GFR/1.73 sq M predicted among non-blacks MDRD (S/P/Bld) [Vol rate/Area] [place] Comment on above: Stage 1: Some kidney damage normal GFR Stage 2: Mild kidney damage GFR 60-89 Stage 3: Moderate kidney damage GFR 30-59 Stage 4: Severe kidney damage GFR 15-29 Stage 5: Severe kidney damage GFR <15 ESRD - chronic treatment by dialysis or transplant Average GFR for 70 o r more years old: 75 mL/min/1.73sq m Chronic Kidney Disease: <60 mL/min/1.73sq m Kidney failure: <15 mL/min/1.73sq m eGFR calculated using average adult body mass. Additional eGFR calculator available at: http://www.[employer].com/multiple_crcl_2012.htm HGB,HCTon 05-15-2020 Hematocrit (Bld) [Volume fraction] 26.2 % Low 37.0-47.0 [facility] Comment on above: Performed By: #### C BCWD, BMP, ANION, EGFR1 #### [facility] [address] [place] [address] Hemoglobin (Bld) [Mass/Vol] 8.3 gm/dl Low 12.0-16.0 [facility] Comment on above: Performed By: #### C BCALEKS, BMP, ANION, EGFR1 #### [facility] [address] [place] [address] Hemoglobin and hematocrit, b loodon 05-15-2020 Hematocrit (Bld) [Volume fraction] 26.2 % Low 37 - 47 % [place] Comment on above: Performed at [facility] [address] [place] [address] Hemoglobin (Bld) [Mass/Vol] 8.3 g/dL Low [place] Interpretation and review of laboratory results Abnormal [place] ANION GAPon 05-14-2020 Anion gap [Moles/Vol] 9.0 mmol/L Normal 8.0-16.0 [facility] Comment on above: Result Comment: ANIO N GAP = Sodium -(Chloride + CO2) Performed By: #### C BCALEKS, BMP, ANION, EGFR1 #### [facility] [address] [place] [address] Anion Gapon 05-14-2020 Anion gap [Moles/Vol] 9.0 mmol/L 8 - 16 meq/L [place] Comment on above: ANION GAP = Sodium - (Chloride + CO2) Performed at [facility] [address] [place] [address] BASIC METABOL PANELon 2019 Calcium [Mass/Vol] 7.6 mg/dL Low 8.5-10.5 [facility] Comment on above: Performed By: #### C BCWD, BMP, ANION, EGFR1 #### [facility] [address] [place] [address] Chloride [Moles/Vol] 105 mmol/L Normal 98-111 [facility] Comment on above: Performed By: #### C BCWD, BMP, ANION, EGFR1 #### [facility] [address] [place] [address] CO2 [Moles/Vol] 24 mmol/L Normal 23-33 [facility] Comment on above: Performed By: #### C BCWD, BMP, ANION, EGFR1 #### [facility] [address] [place] [address] Creatinine [Mass/Vol] 1.1 mg/dL Normal 0.4-1.2 [facility] Comment on above: Performed By: #### C BCWD, BMP, ANION, EGFR1 #### [facility] [address] [place] [address] Glucose [Mass/Vol] 104 mg/dL Normal 70-108 [facility] Comment on above: Performed By: #### C BCWD, BMP, ANION, EGFR1 #### [facility] [address] [place] [address] Potassium [Moles/Vol] 4.0 mmol/L Normal 3.5-5.2 [facility] Comment on above: Performed By: #### C BCWD, BMP, ANION, EGFR1 #### [facility] [address] [place] [address] Sodium [Moles/Vol] 138 mmol/L Normal 135-145 [facility] Comment on above: Performed By: #### C BCWD, BMP, ANION, EGFR1 #### [facility] [address] [place] [address] Urea nitrogen [Mass/Vol] 18 mg/dL Normal 7-22 [facility] Comment on above: Performed By: #### C BCWD, BMP, ANION, EGFR1 #### [facility] [address] [place] [address] Basic Metabolic Panelon 04-27 Calcium [Mass/Vol] 7.6 mg/dL Low 8.5 - 10. 5 mg/dL [place] Comment on above: Performed at [facility] [address] [place] [address] Chloride [Moles/Vol] 105 mmol/L 98 - 11 1 meq/L [place] CO2 [Moles/Vol] 24 mmol/L 23 - 33 meq/L [place] Creatinine [Mass/Vol] 1.1 mg/dL 0.4 - 1.2 mg/dL [place] Glucose [Mass/Vol] 104 mg/dL 70 - 108 mg/dL [place] Potassium [Moles/Vol] 4.0 mmol/L 3.5 - 5.2 meq/L [place] Sodium [Moles/Vol] 138 mmol/L 135 - 145 meq/L [place] Urea nitrogen [Mass/Vol] 18 mg/dL 7 - 22 mg/dL [place] CBC Auto Differentialon 04-27 Basophils (Bld) [#/Vol] 0.0 10*3/uL [place] Basophils/100 WBC (Bld) 0.2 % [place] Eosinophils (Bld) [#/Vol] 0.2 10*3/uL [place] Eosinophils/100 WBC (Bld) 2 % [place] Erythrocyte distribution width (RBC) [Ratio] 15.2 % High 11.5 - 14.5 % [place] Hematocrit (Bld) [Volume fraction] 23.1 % Low 37 - 47 % [place] Hemoglobin (Bld) [Mass/Vol] 7.0 g/dL Critically low [place] Immature Grans (Abs) 0.07 [place] Immature granulocytes (Bld) [#/Vol] 0.7 % [place] Interpretation and review of laboratory results Abnormal [place] Lymphocytes (Bld) [#/Vol] 2.0 10*3/uL [place] Lymphocytes/100 WBC (Bld) 19.6 % [place] MCH (RBC) [Entitic mass] 29.4 pg 26 - 33 pg [place] MCHC (RBC) [Mass/Vol] 30.3 g/dL [place] MCV (RBC) [Entitic vol] 97.1 fL 81 - 99 fL [place] Monocytes (Bld) [#/Vol] 0.9 10*3/uL [place] Monocytes/100 WBC (Bld) 8.4 % [place] Nucleated RBC/100 WBC (Bld) [Ratio] 0 % /100 wbc [place] Pathologist Review S.ODRONIC, M.D. [place] Platelet mean volume (Bld) [Entitic vol] 9.5 fL 9.4 - 12.4 fL [place] Platelets (Bld) [#/Vol] ADEQUATE Adequate [place] Platelets (Bld) [#/Vol] 385 10*3/uL [place] RBC (Bld) [#/Vol] 2.38 10*6/uL Low [place] RDW-SD 53.4 fL High 35 - 45 fL [place] Rouleaux SLIGHT Absent [place] Comment on above: Performed at [facility] [address] [place] [address] Segmented neutrophils/100 WBC (Bld) 69.1 % [place] Segs Absolute 7.0 [place] WBC (Bld) [#/Vol] 10.2 10*3/uL [place] CBC WITH DIFFERENTIALon 04-27 PATHOLOGIST REVIEWED Shona VILLAFANA Normal [facility] Comment on above: Performed By: #### C BCWD, BMP, ANION, EGFR1 #### [facility] [address] [place] [address] Platelets (Bld) [#/Vol] ADEQUATE Normal Adequate [facility] Comment on above: Performed By: #### C BCWD, BMP, ANION, EGFR1 #### [facility] [employer] [address] [place] [address] ROULEAUX SLIGHT Normal Absent [facility] Comment on above: Performed By: #### C BCWD, BMP, ANION, EGFR1 #### [facility] [address] [place] [address] ABS IMMATURE GRANS (IG) 0.07 thou/mm3 Normal 0.00-0.07 [facility] Comment on above: Performed By: #### C BCWD, BMP, ANION, EGFR1 #### [facility] [address] [place] [address] ABS NEUTROPHILS 7.0 thou/mm3 Normal 1.8-7.7 [facility] Comment on above: Performed By: #### C BCWD, BMP, ANION, EGFR1 #### [address] [address] Basophils (Bld) [#/Vol] 0.0 thou/mm3 Normal 0.0-0.1 [facility] Comment on above: Performed By: #### C BCWD, BMP, ANION, EGFR1 #### [place] [address] [address] Basophils/100 WBC (Bld) 0.2 % Normal [facility] Comment on above: Performed By: #### C BCWD, BMP, ANION, EGFR1 #### [address] [address] Eosinophils (Bld) [#/Vol] 0.2 thou/mm3 Normal 0.0-0.4 [facility] Comment on above: Performed By: #### C BCWD, BMP, ANION, EGFR1 #### [address] [address] Eosinophils/100 WBC (Bld) 2.0 % Normal [facility] Comment on above: Performed By: #### C BCWD, BMP, ANION, EGFR1 #### [address] [address] Erythrocyte distribution width (RBC) [Ratio] 15.2 % High 11.5-14.5 [facility] Comment on above: Performed By: #### C BCWD, BMP, ANION, EGFR1 #### [address] [address] Hematocrit (Bld) [Volume fraction] 23.1 % Low 37.0-47.0 [facility] Comment on above: Performed By: #### C BCWD, BMP, ANION, EGFR1 #### [facility] [employer] [address] [place] [address] Hemoglobin (Bld) [Mass/Vol] 7.0 gm/dl Critically low 12.0-16.0 [facility] Comment on above: Performed By: #### C BCWD, BMP, ANION, EGFR1 #### [facility] [employer] [address] [place] [address] IMMATURE GRANS (IG) 0.7 % Normal [facility] Comment on above: Performed By: #### C BCWD, BMP, ANION, EGFR1 #### [address] [address] Lymphocytes (Bld) [#/Vol] 2.0 thou/mm3 Normal 1.0-4.8 [facility] Comment on above: Performed By: #### C BCWD, BMP, ANION, EGFR1 #### [address] [address] Lymphocytes/100 WBC (Bld) 19.6 % Normal [facility] Comment on above: Performed By: #### C BCWD, BMP, ANION, EGFR1 #### [place] [address] MCH (RBC) [Entitic mass] 29.4 pg Normal 26.0-33.0 [facility] Comment on above: Performed By: #### C BCWD, BMP, ANION, EGFR1 #### [place] [address] MCHC (RBC) [Mass/Vol] 30.3 gm/dl Low 32.2-35.5 [facility] Comment on above: Performed By: #### C BCWD, BMP, ANION, EGFR1 #### [address] [address] MCV (RBC) [Entitic vol] 97.1 fL Normal 81.0-99.0 [facility] Comment on above: Performed By: #### C BCWD, BMP, ANION, EGFR1 #### [address] [address] Monocytes (Bld) [#/Vol] 0.9 thou/mm3 Normal 0.4-1.3 [facility] Comment on above: Performed By: #### C BCWD, BMP, ANION, EGFR1 #### [address] [address] Monocytes/100 WBC (Bld) 8.4 % Normal [facility] Comment on above: Performed By: #### C BCWD, BMP, ANION, EGFR1 #### [facility] [employer] [address] [address] Neutrophils/100 WBC (Bld) 69.1 % Normal [facility] Comment on above: Performed By: #### C BCWD, BMP, ANION, EGFR1 #### [address] [address] Nucleated RBC/100 WBC (Bld) [Ratio] 0 /100 wbc Normal [facility] Comment on above: Performed By: #### C BCWD, BMP, ANION, EGFR1 #### [address] [address] Platelet mean volume (Bld) [Entitic vol] 9.5 fL Normal 9.4-12.4 [facility] Comment on above: Performed By: #### C BCWD, BMP, ANION, EGFR1 #### [address] [address] Platelets (Bld) [#/Vol] 385 thou/mm3 Normal 130-400 [facility] Comment on above: Performed By: #### C BCWD, BMP, ANION, EGFR1 #### [address] [address] RBC (Bld) [#/Vol] 2.38 mill/mm3 Low 4.20-5.40 [facility] Comment on above: Performed By: #### C BCWD, BMP, ANION, EGFR1 #### [address] [address] RDW-SD 53.4 fL High 35.0-45.0 [facility] Comment on above: Performed By: #### C BCWD, BMP, ANION, EGFR1 #### [facility] [employer] [address] [place] [address] WBC (Bld) [#/Vol] 10.2 thou/mm3 Normal 4.8-10.8 [facility] Comment on above: Performed By: #### C BCWD, BMP, ANION, EGFR1 #### [facility] [address] [address] GFR, ESTIMATEDon 05-14-2020 GFR/1.73 sq M.predicted MDRD (S/P/Bld) [Vol rate/Area] 47 ml/min/1.73m2 Abnormal [facility] Comment on above: Result Comment: Stag e Description GFR, ml/min/1.73 m2 - At increased risk > or = 60 (with chronic kidney disease risk factors) 1 Normal or increased GFR > or = 90 2 Mildly or decreased GFR 60 - 89 3 Moderately decreased GFR 30 - 59 4 Severely decreased GFR 15 - 29 5 Kidney failure <15 (or dialysis) Estimated GFR calculated using abbreviated MDRD formula as recommended by [employer] Kid[employer] Foundation. Calculation based upon serum creatinine and adjusted for age, gender & race. Jaquelin. Internal Med., Vol. 139 (2) pg 137-147. Performed By: #### C BCWD, BMP, ANION, EGFR1 #### [facility] [address] [place] [address] Glomerular Filtration Rate, Estimatedon 05-14-2020 Est, Glom Filt Rate 47 Abnormal ml/min/1 .73m 2 [place] Comment on above: Stage Description GF R, ml/min/1.73 m2 - At increased risk > or = 60 (with chronic kidney disease risk factors) 1 Normal or increased GFR > or = 90 2 Mildly or decreased GFR 60 - 89 3 Moderately decreased GFR 30 - 59 4 Severely decreased GFR 15 - 29 5 Kidney failure <15 (or dialysis) Estimated GFR calculated using abbreviated MDRD formula as recommended by National Kid[employer] Foundation. Calculation based upon serum creatinine and adjusted for age, gender & race. Jaquelin. Internal Med., Vol. 139 (2) pg 137-147. Performed at [facility] [address] [place] [address] HGB,HCTon 05-14-2020 Hematocrit (Bld) [Volume fraction] 27.1 % Low 37.0-47.0 [facility] Comment on above: Performed By: #### C BCWD, BMP, ANION, EGFR1 #### [facility] [address] [place] [address] Hemoglobin (Bld) [Mass/Vol] 8.2 gm/dl Low 12.0-16.0 [facility] Comment on above: Performed By: #### C BCWD, BMP, ANION, EGFR1 #### [facility] [address] [place] [address] Hemoglobin and hematocrit, b loodon 05-14-2020 Hematocrit (Bld) [Volume fraction] 27.1 % Low 37 - 47 % [place] Comment on above: Performed at [facility] [address] [place] [address] Hemoglobin (Bld) [Mass/Vol] 8.2 g/dL [place] Interpretation and review of laboratory results Abnormal [place] LEUKO-REDUCED RCon 0 -1 IRR LEUKO-REDUCED RC [id number] transfused Normal [facility] Comment on above: Performed By: #### C BCWD, BMP, ANION, EGFR1 #### [facility] [address] [address] Otheron 05-14-2020 Interpretation and review of laboratory results Abnormal [place] SCAN OF BLOOD SMEARon 2019 SCAN OF BLOOD SMEAR see below Normal [facility] Comment on above: Result Comment: Crit eria Exceeded; Scan of Differential Slide Performed Performed By: #### C BCWD, BMP, ANION, EGFR1 #### [facility] [address] [place] [address] Scan of Blood Smearon 2019 SCAN OF BLOOD SMEAR see below [place] Comment on above: Criteria Exceeded; S can of Differential Slide Performed Performed at [place] [address] TYPE AND SCREENon 05-14-2020 ABO A [place] Rh Factor Positive [place] TYPE AND SCREEN CAPTUREon ABO CAPTURE A Normal [facility] Comment on above: Performed By: #### C BCWD, BMP, ANION, EGFR1 #### [facility] [address] [place] [address] INDIRECT AUTUMN CAPTURE Negative Normal [facility] Comment on above: Performed By: #### C BCWD, BMP, ANION, EGFR1 #### [facility] [address] [place] [address] RH CAPTURE (2 D CLONES) Positive Normal [facility] Comment on above: Performed By: #### C BCWD, BMP, ANION, EGFR1 #### [facility] [address] [place] [address] XR FOOT LEFT (MIN 3 VIEWS)on 05-14-2020 XR FOOT LEFT (MIN 3 VIEWS) PROCEDURE: XR FOOT LEFT (MIN 3 VIEWS) CLINICAL INFORMATION: foot pain and swelling. No trauma. COMPARISON: No prior study. TECHNIQUE: 4 views of the foot were obtained. FINDINGS: No acute fracture or dislocation is seen. There is moderate soft tissue swelling of the foot dorsally, consistent with cellulitis. Moderately severe degenerative changes involve the tarsal/metatarsal region dorsally. There is a moderate-sized Achilles spur and plantar calcaneal spur. Multifocal moderate degenerative changes involve several interphalangeal joints. In addition, there is a small cortical cyst or possibly a small erosion along the superior/medial aspect of the first metatarsal head. Cannot exclude gout. IMPRESSION: 1. Osteoporosis. Multifocal degenerative changes. 2. Soft tissue swelling of the foot. Questionable small erosion first metatarsal head versus cortical cyst.. Cannot exclude gout. This report has been created using voice recognition software. It may contain minor errors which are inherent in voice recognition technology. Final report electronically signed by Dr. Rodrick Baker on 05/14/2020 8:45 AM Interpreted by: Rodrick Baker MD Signed by: Rodrick Baker MD 05/14/20 Final result Normal [facility] 1. Osteoporosis. Multifocal degenerative changes. 2. Soft tissue swelling of the foot. Questionable small erosion first metatarsal head versus cortical cyst.. Cannot exclude gout. This report has been created using voice recognition software. It may contain minor errors which are inherent in voice recognition technology. Final report electronically signed by Dr. Rodrick Baker on 05/14/2020 8:45 AM [facility] [place] [place] PROCEDURE: XR FOOT LEFT (MIN 3 VIEWS) CLINICAL INFORMATION: foot pain and swelling. No trauma. COMPARISON: No prior study. TECHNIQUE: 4 views of the foot were obtained. FINDINGS: No acute fracture or dislocation is seen. There is moderate soft tissue swelling of the foot dorsally, consistent with cellulitis. Moderately severe degenerative changes involve the tarsal/metatarsal region dorsally. There is a moderate-sized Achilles spur and plantar calcaneal spur. Multifocal moderate degenerative changes involve several interphalangeal joints. In addition, there is a small cortical cyst or possibly a small erosion along the superior/medial aspect of the first metatarsal head. Cannot exclude gout. [place], [facility] Incoming Radiant Results From [employer] - 05/14/2020 8:47 AM EDT PROCEDURE: XR FOOT LEFT (MIN 3 VIEWS) CLINICAL INFORMATION: foot pain and swelling. No trauma. COMPARISON: No prior study. TECHNIQUE: 4 views of the foot were obtained. FINDINGS: No acute fracture or dislocation is seen. There is moderate soft tissue swelling of the foot dorsally, consistent with cellulitis. Moderately severe degenerative changes involve the tarsal/metatarsal region dorsally. There is a moderate-sized Achilles spur and plantar calcaneal spur. Multifocal moderate degenerative changes involve several interphalangeal joints. In addition, there is a small cortical cyst or possibly a small erosion along the superior/medial aspect of the first metatarsal head. Cannot exclude gout. IMPRESSION: 1. Osteoporosis. Multifocal degenerative changes. 2. Soft tissue swelling of the foot. Questionable small erosion first metatarsal head versus cortical cyst.. Cannot exclude gout. This report has been created using voice recognition software. It may contain minor errors which are inherent in voice recognition technology. Final report electronically signed by Dr. Rodrick Baker on 05/14/2020 8:45 AM [place], [place] ANION GAPon 05-13-2020 Anion gap [Moles/Vol] 10.0 mmol/L Normal 8.0-16.0 [facility] Comment on above: Result Comment: ANIO N GAP = Sodium -(Chloride + CO2) Performed By: #### C EDITA ELIZABETH, ANION, EGFR1 #### [facility] [address] [place] [address] Anion Gapon 05-13-2020 Anion gap [Moles/Vol] 10.0 mmol/L 8 - 16 meq/L [facility] [place] Comment on above: ANION GAP = Sodium - (Chloride + CO2) Performed at [facility] [address] [place] [address] BASIC METABOL PANELon 2019 Calcium [Mass/Vol] 7.8 mg/dL Low 8.5-10.5 [facility] Comment on above: Performed By: #### C BCWD, BMP, ANION, EGFR1 #### [facility] [address] [place] [address] Chloride [Moles/Vol] 102 mmol/L Normal 98-111 [facility] Comment on above: Performed By: #### C BCWD, BMP, ANION, EGFR1 #### [facility] [address] [place] [address] CO2 [Moles/Vol] 23 mmol/L Normal 23-33 [facility] Comment on above: Performed By: #### C BCWD, BMP, ANION, EGFR1 #### [facility] [address] [place] [address] Creatinine [Mass/Vol] 1.0 mg/dL Normal 0.4-1.2 [facility] Comment on above: Performed By: #### C BCWD, BMP, ANION, EGFR1 #### [facility] [address] [place] [address] Glucose [Mass/Vol] 151 mg/dL High 70-108 [facility] Comment on above: Performed By: #### C BCWD, BMP, ANION, EGFR1 #### [facility] [address] [place] [address] Potassium [Moles/Vol] 4.0 mmol/L Normal 3.5-5.2 [facility] Comment on above: Performed By: #### C BCWD, BMP, ANION, EGFR1 #### [facility] [address] [place] [address] Sodium [Moles/Vol] 135 mmol/L Normal 135-145 [facility] Comment on above: Performed By: #### C BCWD, BMP, ANION, EGFR1 #### [facility] [address] [place] [address] Urea nitrogen [Mass/Vol] 18 mg/dL Normal 7-22 [facility] Comment on above: Performed By: #### C BCWD, BMP, ANION, EGFR1 #### [facility] [address] [place] [address] Basic Metabolic Panelon 04-27 Calcium [Mass/Vol] 7.8 mg/dL Low 8.5 - 10. 5 mg/dL [place] Comment on above: Performed at [facility] [address] [place] [address] Chloride [Moles/Vol] 102 mmol/L 98 - 11 1 meq/L [place] CO2 [Moles/Vol] 23 mmol/L 23 - 33 meq/L [place] Creatinine [Mass/Vol] 1 mg/dL 0.4 - 1.2 mg/dL [place] Glucose [Mass/Vol] 151 mg/dL High 70 - 108 mg/dL [place] Potassium [Moles/Vol] 4.0 mmol/L 3.5 - 5.2 meq/L [place] Sodium [Moles/Vol] 135 mmol/L 135 - 145 meq/L [place] Urea nitrogen [Mass/Vol] 18 mg/dL 7 - 22 mg/dL [place] CBC Auto Differentialon 04-27 Basophils (Bld) [#/Vol] 0.0 10*3/uL [place] Basophils/100 WBC (Bld) 0.1 % M [place], [place] Eosinophils (Bld) [#/Vol] 0.1 10*3/uL [place] Eosinophils/100 WBC (Bld) 1.3 % [place] Erythrocyte distribution width (RBC) [Ratio] 15.1 % High 11.5 - 14.5 % [place] Hematocrit (Bld) [Volume fraction] 25.0 % Low 37 - 47 % [place] Hemoglobin (Bld) [Mass/Vol] 7.6 g/dL Low [place] Immature Grans (Abs) 0.12 High [place], [place] Immature granulocytes (Bld) [#/Vol] 1 % [place] Interpretation and review of laboratory results Abnormal [place] Lymphocytes (Bld) [#/Vol] 1.5 10*3/uL [place] Lymphocytes/100 WBC (Bld) 13.4 % [place] MCH (RBC) [Entitic mass] 30.0 pg 26 - 33 pg [place] MCHC (RBC) [Mass/Vol] 30.4 g/dL [place] MCV (RBC) [Entitic vol] 98.8 fL 81 - 99 fL [place] Monocytes (Bld) [#/Vol] 0.8 10*3/uL [place] Monocytes/100 WBC (Bld) 7.3 % [place] Nucleated RBC/100 WBC (Bld) [Ratio] 0 % /100 wbc [place] Comment on above: Performed at [facility] [address] [place] [address] Platelet mean volume (Bld) [Entitic vol] 9.5 fL 9.4 - 12.4 fL [place] Platelets (Bld) [#/Vol] 396 10*3/uL [place] RBC (Bld) [#/Vol] 2.53 10*6/uL [place], [place] RDW-SD 54.4 fL High 35 - 45 fL [place] Segmented neutrophils/100 WBC (Bld) 76.9 % [place] Segs Absolute 8.8 [place] WBC (Bld) [#/Vol] 11.5 10*3/uL [place] CBC WITH DIFFERENTIALon 04-27 ABS IMMATURE GRANS (IG) 0.12 thou/mm3 High 0.00-0.07 [facility] Comment on above: Performed By: #### C BCWD, BMP, ANION, EGFR1 #### [facility] [address] [place] [address] ABS NEUTROPHILS 8.8 thou/mm3 High 1.8-7.7 [facility] Comment on above: Performed By: #### C BCWD, BMP, ANION, EGFR1 #### [facility] [address] [place] [address] Basophils (Bld) [#/Vol] 0.0 thou/mm3 Normal 0.0-0.1 [facility] Comment on above: Performed By: #### C BCWD, BMP, ANION, EGFR1 #### [facility] [address] [place] [address] Basophils/100 WBC (Bld) 0.1 % Normal [facility] Comment on above: Performed By: #### C BCWD, BMP, ANION, EGFR1 #### [facility] [address] [place] [address] Eosinophils (Bld) [#/Vol] 0.1 thou/mm3 Normal 0.0-0.4 [facility] Comment on above: Performed By: #### C BCWD, BMP, ANION, EGFR1 #### [facility] [address] [place] [address] Eosinophils/100 WBC (Bld) 1.3 % Normal [facility] Comment on above: Performed By: #### C BCWD, BMP, ANION, EGFR1 #### [facility] [address] [place] [address] Erythrocyte distribution width (RBC) [Ratio] 15.1 % High 11.5-14.5 [facility] Comment on above: Performed By: #### C BCWD, BMP, ANION, EGFR1 #### [facility] [address] [place] [address] Hematocrit (Bld) [Volume fraction] 25.0 % Low 37.0-47.0 [facility] Comment on above: Performed By: #### C BCWD, BMP, ANION, EGFR1 #### [facility] [address] [place] [address] Hemoglobin (Bld) [Mass/Vol] 7.6 gm/dl Low 12.0-16.0 [facility] Comment on above: Performed By: #### C BCWD, BMP, ANION, EGFR1 #### [facility] [address] [place] [address] IMMATURE GRANS (IG) 1.0 % Normal [facility] Comment on above: Performed By: #### C BCWD, BMP, ANION, EGFR1 #### [facility] [address] [place] [address] Lymphocytes (Bld) [#/Vol] 1.5 thou/mm3 Normal 1.0-4.8 [facility] Comment on above: Performed By: #### C BCWD, BMP, ANION, EGFR1 #### [address] [address] Lymphocytes/100 WBC (Bld) 13.4 % Normal [facility] Comment on above: Performed By: #### C BCWD, BMP, ANION, EGFR1 #### [address] [address] MCH (RBC) [Entitic mass] 30.0 pg Normal 26.0-33.0 [facility] Comment on above: Performed By: #### C BCWD, BMP, ANION, EGFR1 #### [address] [address] MCHC (RBC) [Mass/Vol] 30.4 gm/dl Low 32.2-35.5 [facility] Comment on above: Performed By: #### C BCWD, BMP, ANION, EGFR1 #### [address] [address] MCV (RBC) [Entitic vol] 98.8 fL Normal 81.0-99.0 [facility] Comment on above: Performed By: #### C BCWD, BMP, ANION, EGFR1 #### [address] [address] Monocytes (Bld) [#/Vol] 0.8 thou/mm3 Normal 0.4-1.3 [facility] Comment on above: Performed By: #### C BCWD, BMP, ANION, EGFR1 #### [address] [address] Monocytes/100 WBC (Bld) 7.3 % Normal [facility] Comment on above: Performed By: #### C BCWD, BMP, ANION, EGFR1 #### [address] [address] Neutrophils/100 WBC (Bld) 76.9 % Normal [facility] Comment on above: Performed By: #### C BCWD, BMP, ANION, EGFR1 #### [address] [address] Nucleated RBC/100 WBC (Bld) [Ratio] 0 /100 wbc Normal [facility] Comment on above: Performed By: #### C BCWD, BMP, ANION, EGFR1 #### [address] [address] Platelet mean volume (Bld) [Entitic vol] 9.5 fL Normal 9.4-12.4 [facility] Comment on above: Performed By: #### C BCWD, BMP, ANION, EGFR1 #### [address] [address] Platelets (Bld) [#/Vol] 396 thou/mm3 Normal 130-400 [facility] Comment on above: Performed By: #### C BCWD, BMP, ANION, EGFR1 #### [address] [address] RBC (Bld) [#/Vol] 2.53 mill/mm3 Low 4.20-5.40 [facility] Comment on above: Performed By: #### C BCWD, BMP, ANION, EGFR1 #### [address] [address] RDW-SD 54.4 fL High 35.0-45.0 [facility] Comment on above: Performed By: #### C BCWD, BMP, ANION, EGFR1 #### [address] [address] WBC (Bld) [#/Vol] 11.5 thou/mm3 High 4.8-10.8 [facility] Comment on above: Performed By: #### C BCWD, BMP, ANION, EGFR1 #### [facility] [address] [address] GFR, ESTIMATEDon 05-13-2020 GFR/1.73 sq M.predicted MDRD (S/P/Bld) [Vol rate/Area] 53 ml/min/1.73m2 Abnormal [facility] Comment on above: Result Comment: Aris alford Description GFR, ml/min/1.73 m2 - At increased risk > or = 60 (with chronic kidney disease risk factors) 1 Normal or increased GFR > or = 90 2 Mildly or decreased GFR 60 - 89 3 Moderately decreased GFR 30 - 59 4 Severely decreased GFR 15 - 29 5 Kidney failure <15 (or dialysis) Estimated GFR calculated using abbreviated MDRD formula as recommended by National Kid[employer] Foundation. Calculation based upon serum creatinine and adjusted for age, gender & race. Jaquelin. Internal Med., Vol. 139 (2) pg 137-147. Performed By: #### C BCWD, BMP, ANION, EGFR1 #### [facility] [address] [place] [address] Glomerular Filtration Rate, Estimatedon 05-13-2020 Est, Glom Filt Rate 53 Abnormal ml/min/1 .73m 2 [place] Comment on above: Stage Description GF R, ml/min/1.73 m2 - At increased risk > or = 60 (with chronic kidney disease risk factors) 1 Normal or increased GFR > or = 90 2 Mildly or decreased GFR 60 - 89 3 Moderately decreased GFR 30 - 59 4 Severely decreased GFR 15 - 29 5 Kidney failure <15 (or dialysis) Estimated GFR calculated using abbreviated MDRD formula as recommended by National Kidney Foundation. Calculation based upon serum creatinine and adjusted for age, gender & race. Jaquelin. Internal Med., Vol. 139 (2) pg 137-147. Performed at [facility] [address] [place] [address] Otheron 05-13-2020 Interpretation and review of laboratory results Abnormal [place] ANION GAPon 05-12-2020 Anion gap [Moles/Vol] 8.0 mmol/L Normal 8.0-16.0 [facility] Comment on above: Result Comment: ANIO N GAP = Sodium -(Chloride + CO2) Performed By: #### B MP, ANION, EGFR1, CBCWD #### [facility] [address] [place] [address] Anion Gapon 05-12-2020 Anion gap [Moles/Vol] 8.0 mmol/L 8 - 16 meq/L [place] Comment on above: ANION GAP = Sodium - (Chloride + CO2) Performed at [facility] [address] [place] [address] BASIC METABOL PANELon 2019 Calcium [Mass/Vol] 7.7 mg/dL Low 8.5-10.5 [facility] Comment on above: Performed By: #### B MP, ANION, EGFR1, CBCWD #### [facility] [address] [place] [address] Chloride [Moles/Vol] 105 mmol/L Normal 98-111 [facility] Comment on above: Performed By: #### B MP, ANION, EGFR1, CBCWD #### [facility] [address] [place] [address] CO2 [Moles/Vol] 24 mmol/L Normal 23-33 [facility] Comment on above: Performed By: #### B MP, ANION, EGFR1, CBCWD #### [facility] [address] [place] [address] Creatinine [Mass/Vol] 1.1 mg/dL Normal 0.4-1.2 [facility] Comment on above: Performed By: #### B MP, ANION, EGFR1, CBCWD #### [facility] [address] [place] [address] Glucose [Mass/Vol] 123 mg/dL High 70-108 [facility] Comment on above: Performed By: #### B MP, ANION, EGFR1, CBCWD #### [facility] [address] [place] [address] Potassium [Moles/Vol] 3.9 mmol/L Normal 3.5-5.2 [facility] Comment on above: Performed By: #### B MP, ANION, EGFR1, CBCWD #### [facility] [address] [place] [address] Sodium [Moles/Vol] 137 mmol/L Normal 135-145 [facility] Comment on above: Performed By: #### B MP, ANION, EGFR1, CBCWD #### [facility] [address] [place] [address] Urea nitrogen [Mass/Vol] 20 mg/dL Normal 7-22 [facility] Comment on above: Performed By: #### B MP, ANION, EGFR1, CBCWD #### [facility] [address] [place] [address] Basic Metabolic Panelon 04-27 Calcium [Mass/Vol] 7.7 mg/dL Low 8.5 - 10. 5 mg/dL [place] Comment on above: Performed at [facility] [address] [place] [address] Chloride [Moles/Vol] 105 mmol/L 98 - 11 1 meq/L [place] CO2 [Moles/Vol] 24 mmol/L 23 - 33 meq/L [place] Creatinine [Mass/Vol] 1.1 mg/dL 0.4 - 1.2 mg/dL [place] Glucose [Mass/Vol] 123 mg/dL High 70 - 108 mg/dL [place] Potassium [Moles/Vol] 3.9 mmol/L 3.5 - 5.2 meq/L [place] Sodium [Moles/Vol] 137 mmol/L 135 - 145 meq/L [place] Urea nitrogen [Mass/Vol] 20 mg/dL 7 - 22 mg/dL [place] Bladder scanon 05-12-2020 Dora Costa 05/12/2020 1:12 PM Bladder scan was completed by Sadie Costa at 1245pm. The residual amount of 725ml was resulted to Mirza WESLEY. [place], [place] Flora Nesbitt 05/12/2020 12:25 AM A Bladder scan was performed at 0021 . The patient's last void was at has not voided since she was straight cathed at 15:30. The residual amount was measured to be 656 ML. Report of results was given to Missy WESLEY. [place] CBC Auto Differentialon 04-27 Basophils (Bld) [#/Vol] 0.0 10*3/uL [place] Basophils/100 WBC (Bld) 0.1 % [place] Eosinophils (Bld) [#/Vol] 0.2 10*3/uL [place] Eosinophils/100 WBC (Bld) 2.4 % [place] Erythrocyte distribution width (RBC) [Ratio] 15 % High 11.5 - 14.5 % [place] Hematocrit (Bld) [Volume fraction] 24.8 % Low 37 - 47 % [place] Hemoglobin (Bld) [Mass/Vol] 7.4 g/dL Low [place] Immature Grans (Abs) 0.06 [place], [place] Immature granulocytes (Bld) [#/Vol] 0.6 % [place] Interpretation and review of laboratory results Abnormal [place] Lymphocytes (Bld) [#/Vol] 1.4 10*3/uL [place] Lymphocytes/100 WBC (Bld) 14.9 % [place] MCH (RBC) [Entitic mass] 29.4 pg 26 - 33 pg [place] MCHC (RBC) [Mass/Vol] 29.8 g/dL [place] MCV (RBC) [Entitic vol] 98.4 fL 81 - 99 fL [place] Monocytes (Bld) [#/Vol] 0.9 10*3/uL [place] Monocytes/100 WBC (Bld) 8.9 % [place] Nucleated RBC/100 WBC (Bld) [Ratio] 0 % /100 wbc [place] Comment on above: Performed at [facility] [address] [place] [address] Platelet mean volume (Bld) [Entitic vol] 9.6 fL 9.4 - 12.4 fL [place] Platelets (Bld) [#/Vol] 370 10*3/uL [place] RBC (Bld) [#/Vol] 2.52 10*6/uL Low [place] RDW-SD 54 fL High 35 - 45 fL [place] Segmented neutrophils/100 WBC (Bld) 73.1 % [place] Segs Absolute 7.0 [place] WBC (Bld) [#/Vol] 9.6 10*3/uL [place] CBC WITH DIFFERENTIALon 04-27 ABS IMMATURE GRANS (IG) 0.06 thou/mm3 Normal 0.00-0.07 [facility] Comment on above: Performed By: #### B MP, ANION, EGFR1, CBCWD #### [facility] [address] [place] [address] ABS NEUTROPHILS 7.0 thou/mm3 Normal 1.8-7.7 [facility] Comment on above: Performed By: #### B MP, ANION, EGFR1, CBCWD #### [facility] [address] [place] [address] Basophils (Bld) [#/Vol] 0.0 thou/mm3 Normal 0.0-0.1 [facility] Comment on above: Performed By: #### B MP, ANION, EGFR1, CBCWD #### [address] [address] Basophils/100 WBC (Bld) 0.1 % Normal [facility] Comment on above: Performed By: #### B MP, ANION, EGFR1, CBCWD #### [address] [address] Eosinophils (Bld) [#/Vol] 0.2 thou/mm3 Normal 0.0-0.4 [facility] Comment on above: Performed By: #### B MP, ANION, EGFR1, CBCWD #### [address] [address] Eosinophils/100 WBC (Bld) 2.4 % Normal [facility] Comment on above: Performed By: #### B MP, ANION, EGFR1, CBCWD #### [address] [address] Erythrocyte distribution width (RBC) [Ratio] 15.0 % High 11.5-14.5 [facility] Comment on above: Performed By: #### B MP, ANION, EGFR1, CBCWD #### [facility] [address] [place] [address] Hematocrit (Bld) [Volume fraction] 24.8 % Low 37.0-47.0 [facility] Comment on above: Performed By: #### B MP, ANION, EGFR1, CBCWD #### [facility] [address] [place] [address] Hemoglobin (Bld) [Mass/Vol] 7.4 gm/dl Low 12.0-16.0 [facility] Comment on above: Performed By: #### B MP, ANION, EGFR1, CBCWD #### [address] [address] IMMATURE GRANS (IG) 0.6 % Normal [facility] Comment on above: Performed By: #### B MP, ANION, EGFR1, CBCWD #### [address] [address] Lymphocytes (Bld) [#/Vol] 1.4 thou/mm3 Normal 1.0-4.8 [facility] Comment on above: Performed By: #### B MP, ANION, EGFR1, CBCWD #### [place] [id number] Lymphocytes/100 WBC (Bld) 14.9 % Normal [facility] Comment on above: Performed By: #### B MP, ANION, EGFR1, CBCWD #### [place] [address] MCH (RBC) [Entitic mass] 29.4 pg Normal 26.0-33.0 [facility] Comment on above: Performed By: #### B MP, ANION, EGFR1, CBCWD #### [address] [address] MCHC (RBC) [Mass/Vol] 29.8 gm/dl Low 32.2-35.5 [facility] Comment on above: Performed By: #### B MP, ANION, EGFR1, CBCWD #### [address] [address] MCV (RBC) [Entitic vol] 98.4 fL Normal 81.0-99.0 [facility] Comment on above: Performed By: #### B MP, ANION, EGFR1, CBCWD #### [address] [address] Monocytes (Bld) [#/Vol] 0.9 thou/mm3 Normal 0.4-1.3 [facility] Comment on above: Performed By: #### B MP, ANION, EGFR1, CBCWD #### [facility] [address] [place] [address] Monocytes/100 WBC (Bld) 8.9 % Normal [facility] Comment on above: Performed By: #### B MP, ANION, EGFR1, CBCWD #### [address] [address] Neutrophils/100 WBC (Bld) 73.1 % Normal [facility] Comment on above: Performed By: #### B MP, ANION, EGFR1, CBCWD #### [address] [address] Nucleated RBC/100 WBC (Bld) [Ratio] 0 /100 wbc Normal [facility] Comment on above: Performed By: #### B MP, ANION, EGFR1, CBCWD #### [address] [address] Platelet mean volume (Bld) [Entitic vol] 9.6 fL Normal 9.4-12.4 [facility] Comment on above: Performed By: #### B MP, ANION, EGFR1, CBCWD #### [address] [address] Platelets (Bld) [#/Vol] 370 thou/mm3 Normal 130-400 [facility] Comment on above: Performed By: #### B MP, ANION, EGFR1, CBCWD #### [address] [address] RBC (Bld) [#/Vol] 2.52 mill/mm3 Low 4.20-5.40 [facility] Comment on above: Performed By: #### B MP, ANION, EGFR1, CBCWD #### [address] [address] RDW-SD 54.0 fL High 35.0-45.0 [facility] Comment on above: Performed By: #### B MP, ANION, EGFR1, CBCWD #### [address] [address] WBC (Bld) [#/Vol] 9.6 thou/mm3 Normal 4.8-10.8 [facility] Comment on above: Performed By: #### B MP, ANION, EGFR1, CBCWD #### [facility] [address] [place] [address] GFR, ESTIMATEDon 05-12-2020 GFR/1.73 sq M.predicted MDRD (S/P/Bld) [Vol rate/Area] 47 ml/min/1.73m2 Abnormal [facility] Comment on above: Result Comment: Stag e Description GFR, ml/min/1.73 m2 - At increased risk > or = 60 (with chronic kidney disease risk factors) 1 Normal or increased GFR > or = 90 2 Mildly or decreased GFR 60 - 89 3 Moderately decreased GFR 30 - 59 4 Severely decreased GFR 15 - 29 5 Kidney failure <15 (or dialysis) Estimated GFR calculated using abbreviated MDRD formula as recommended by National Kidney Foundation. Calculation based upon serum creatinine and adjusted for age, gender & race. Jaquelin. Internal Med., Vol. 139 (2) pg 137-147. Performed By: #### B MP, ANION, EGFR1, CBCWD #### [facility] [address] [place] [address] Glomerular Filtration Rate, Estimatedon 05-12-2020 Est, Glom Filt Rate 47 Abnormal ml/min/1 .73m 2 [place] Comment on above: Stage Description GF R, ml/min/1.73 m2 - At increased risk > or = 60 (with chronic kidney disease risk factors) 1 Normal or increased GFR > or = 90 2 Mildly or decreased GFR 60 - 89 3 Moderately decreased GFR 30 - 59 4 Severely decreased GFR 15 - 29 5 Kidney failure <15 (or dialysis) Estimated GFR calculated using abbreviated MDRD formula as recommended by National Kidney Foundation. Calculation based upon serum creatinine and adjusted for age, gender & race. Jaquelin. Internal Med., Vol. 139 (2) pg 137-147. Performed at [facility] [address] [place] [address] Otheron 05-12-2020 Interpretation and review of laboratory results Abnormal [place] ANION GAPon 05-11-2020 Anion gap [Moles/Vol] 11.0 mmol/L Normal 8.0-16.0 [facility] Comment on above: Result Comment: ANIO N GAP = Sodium -(Chloride + CO2) Performed By: #### C BCWD, BMP, ANION, EGFR1 #### [facility] [address] [place] [address] Anion Gapon 05-11-2020 Anion gap [Moles/Vol] 11.0 mmol/L 8 - 16 meq/L [place] Comment on above: ANION GAP = Sodium - (Chloride + CO2) Performed at [facility] [address] [place] [address] BASIC METABOL PANELon 2019 Calcium [Mass/Vol] 8.1 mg/dL Low 8.5-10.5 [facility] Comment on above: Performed By: #### C BCWD, BMP, ANION, EGFR1 #### [facility] [address] [place] [address] Chloride [Moles/Vol] 107 mmol/L Normal 98-111 [facility] Comment on above: Performed By: #### C BCWD, BMP, ANION, EGFR1 #### [facility] [address] [place] [address] CO2 [Moles/Vol] 24 mmol/L Normal 23-33 [facility] Comment on above: Performed By: #### C BCWD, BMP, ANION, EGFR1 #### [facility] [address] [place] [address] Creatinine [Mass/Vol] 1.1 mg/dL Normal 0.4-1.2 [facility] Comment on above: Performed By: #### C BCWD, BMP, ANION, EGFR1 #### [facility] [address] [place] [address] Glucose [Mass/Vol] 131 mg/dL High 70-108 [facility] Comment on above: Performed By: #### C BCWD, BMP, ANION, EGFR1 #### [facility] [address] [place] [address] Potassium [Moles/Vol] 4.3 mmol/L Normal 3.5-5.2 [facility] Comment on above: Performed By: #### C BCWD, BMP, ANION, EGFR1 #### [facility] [address] [place] [address] Sodium [Moles/Vol] 142 mmol/L Normal 135-145 [facility] Comment on above: Performed By: #### C BCWD, BMP, ANION, EGFR1 #### [facility] [address] [place] [address] Urea nitrogen [Mass/Vol] 23 mg/dL High 7-22 [facility] Comment on above: Performed By: #### C BCWD, BMP, ANION, EGFR1 #### [facility] [address] [place] [address] Basic Metabolic Panelon 04-27 Calcium [Mass/Vol] 8.1 mg/dL Low 8.5 - 10. 5 mg/dL [place] Comment on above: Performed at [facility] [address] [place] [address] Chloride [Moles/Vol] 107 mmol/L 98 - 11 1 meq/L [place] CO2 [Moles/Vol] 24 mmol/L 23 - 33 meq/L [place] Creatinine [Mass/Vol] 1.1 mg/dL 0.4 - 1.2 mg/dL [place] Glucose [Mass/Vol] 131 mg/dL High 70 - 108 mg/dL [place] Potassium [Moles/Vol] 4.3 mmol/L 3.5 - 5.2 meq/L [place] Sodium [Moles/Vol] 142 mmol/L 135 - 145 meq/L [place] Urea nitrogen [Mass/Vol] 23 mg/dL High 7 - 22 mg/dL [place], [place] Bladder scanon 05-11-2020 Dora Costa 05/11/2020 3:29 PM Bladder scan was completed by Sadie Costa at 1505. The residual amount of 770ml was resulted to Franca WESLEY. [place], [place] CBC Auto Differentialon 04-27 Basophils (Bld) [#/Vol] 0.0 10*3/uL [place] Basophils/100 WBC (Bld) 0.2 % [place] Eosinophils (Bld) [#/Vol] 0.1 10*3/uL [place] Eosinophils/100 WBC (Bld) 0.7 % [place] Erythrocyte distribution width (RBC) [Ratio] 15.5 % High 11.5 - 14.5 % [place] Hematocrit (Bld) [Volume fraction] 30.3 % Low 37 - 47 % [place] Hemoglobin (Bld) [Mass/Vol] 8.9 g/dL Low [place] Immature Grans (Abs) 0.05 [place], [place] Immature granulocytes (Bld) [#/Vol] 0.5 % [place] Interpretation and review of laboratory results Abnormal [place] Lymphocytes (Bld) [#/Vol] 1.4 10*3/uL [place] Lymphocytes/100 WBC (Bld) 14.7 % [place] MCH (RBC) [Entitic mass] 29.5 pg 26 - 33 pg [place] MCHC (RBC) [Mass/Vol] 29.4 g/dL [place] MCV (RBC) [Entitic vol] 100.3 fL High 81 - 99 fL [place] Monocytes (Bld) [#/Vol] 0.9 10*3/uL [place] Monocytes/100 WBC (Bld) 9.6 % [place] Nucleated RBC/100 WBC (Bld) [Ratio] 0 % /100 wbc [place] Comment on above: Performed at [facility] [address] [place] [id number] Platelet mean volume (Bld) [Entitic vol] 9.5 fL 9.4 - 12.4 fL [place] Platelets (Bld) [#/Vol] 445 10*3/uL [place] RBC (Bld) [#/Vol] 3.02 10*6/uL Low [place] RDW-SD 57.2 fL High 35 - 45 fL [place] Segmented neutrophils/100 WBC (Bld) 74.3 % [place] Segs Absolute 7.2 [place] WBC (Bld) [#/Vol] 9.7 10*3/uL [place] CBC WITH DIFFERENTIALon 04-27 ABS IMMATURE GRANS (IG) 0.05 thou/mm3 Normal 0.00-0.07 [facility] Comment on above: Performed By: #### C BCWD, BMP, ANION, EGFR1 #### [facility] [address] [place] [address] ABS NEUTROPHILS 7.2 thou/mm3 Normal 1.8-7.7 [facility] Comment on above: Performed By: #### C BCWD, BMP, ANION, EGFR1 #### [facility] [address] [place] [address] Basophils (Bld) [#/Vol] 0.0 thou/mm3 Normal 0.0-0.1 [facility] Comment on above: Performed By: #### C BCWD, BMP, ANION, EGFR1 #### [facility] [address] [place] [address] Basophils/100 WBC (Bld) 0.2 % Normal [facility] Comment on above: Performed By: #### C BCWD, BMP, ANION, EGFR1 #### [facility] [address] [place] [address] Eosinophils (Bld) [#/Vol] 0.1 thou/mm3 Normal 0.0-0.4 [facility] Comment on above: Performed By: #### C BCWD, BMP, ANION, EGFR1 #### [facility] [address] [place] [address] Eosinophils/100 WBC (Bld) 0.7 % Normal [facility] Comment on above: Performed By: #### C BCWD, BMP, ANION, EGFR1 #### [facility] [address] [place] [address] Erythrocyte distribution width (RBC) [Ratio] 15.5 % High 11.5-14.5 [facility] Comment on above: Performed By: #### C BCWD, BMP, ANION, EGFR1 #### [facility] [address] [place] [address] Hematocrit (Bld) [Volume fraction] 30.3 % Low 37.0-47.0 [facility] Comment on above: Performed By: #### C BCWD, BMP, ANION, EGFR1 #### [place] [address] Hemoglobin (Bld) [Mass/Vol] 8.9 gm/dl Low 12.0-16.0 [facility] Comment on above: Performed By: #### C BCWD, BMP, ANION, EGFR1 #### [place] [address] IMMATURE GRANS (IG) 0.5 % Normal [facility] Comment on above: Performed By: #### C BCWD, BMP, ANION, EGFR1 #### [place] [address] Lymphocytes (Bld) [#/Vol] 1.4 thou/mm3 Normal 1.0-4.8 [facility] Comment on above: Performed By: #### C BCWD, BMP, ANION, EGFR1 #### [place] [address] Lymphocytes/100 WBC (Bld) 14.7 % Normal [facility] Comment on above: Performed By: #### C BCWD, BMP, ANION, EGFR1 #### [place] [address] MCH (RBC) [Entitic mass] 29.5 pg Normal 26.0-33.0 [facility] Comment on above: Performed By: #### C BCWD, BMP, ANION, EGFR1 #### [place] [address] MCHC (RBC) [Mass/Vol] 29.4 gm/dl Low 32.2-35.5 [facility] Comment on above: Performed By: #### C BCWD, BMP, ANION, EGFR1 #### [place] [id number] MCV (RBC) [Entitic vol] 100.3 fL High 81.0-99.0 [facility] Comment on above: Performed By: #### C BCWD, BMP, ANION, EGFR1 #### [facility] [address] [address] Monocytes (Bld) [#/Vol] 0.9 thou/mm3 Normal 0.4-1.3 [facility] Comment on above: Performed By: #### C BCWD, BMP, ANION, EGFR1 #### [facility] [address] [address] Monocytes/100 WBC (Bld) 9.6 % Normal [facility] Comment on above: Performed By: #### C BCWD, BMP, ANION, EGFR1 #### [facility] [address] [place] [address] Neutrophils/100 WBC (Bld) 74.3 % Normal [facility] Comment on above: Performed By: #### C BCWD, BMP, ANION, EGFR1 #### [facility] [address] [address] Nucleated RBC/100 WBC (Bld) [Ratio] 0 /100 wbc Normal [facility] Comment on above: Performed By: #### C BCWD, BMP, ANION, EGFR1 #### [facility] [address] [place] [address] Platelet mean volume (Bld) [Entitic vol] 9.5 fL Normal 9.4-12.4 [facility] Comment on above: Performed By: #### C BCWD, BMP, ANION, EGFR1 #### [facility] [address] [place] [address] Platelets (Bld) [#/Vol] 445 thou/mm3 High 130-400 [facility] Comment on above: Performed By: #### C BCWD, BMP, ANION, EGFR1 #### [facility] [address] [place] [address] RBC (Bld) [#/Vol] 3.02 mill/mm3 Low 4.20-5.40 [facility] Comment on above: Performed By: #### C BCWD, BMP, ANION, EGFR1 #### [facility] [address] [place] [address] RDW-SD 57.2 fL High 35.0-45.0 [facility] Comment on above: Performed By: #### C BCWD, BMP, ANION, EGFR1 #### [facility] [address] [place] [address] WBC (Bld) [#/Vol] 9.7 thou/mm3 Normal 4.8-10.8 [facility] Comment on above: Performed By: #### C BCWD, BMP, ANION, EGFR1 #### [facility] [address] [place] [address] GFR, ESTIMATEDon 05-11-2020 GFR/1.73 sq M.predicted MDRD (S/P/Bld) [Vol rate/Area] 47 ml/min/1.73m2 Abnormal [facility] Comment on above: Result Comment: Stag e Description GFR, ml/min/1.73 m2 - At increased risk > or = 60 (with chronic kidney disease risk factors) 1 Normal or increased GFR > or = 90 2 Mildly or decreased GFR 60 - 89 3 Moderately decreased GFR 30 - 59 4 Severely decreased GFR 15 - 29 5 Kidney failure <15 (or dialysis) Estimated GFR calculated using abbreviated MDRD formula as recommended by National Kid[employer] Foundation. Calculation based upon serum creatinine and adjusted for age, gender & race. Jaquelin. Internal Med., Vol. 139 (2) pg 137-147. Performed By: #### C BCWD, BMP, ANION, EGFR1 #### [facility] [address] [place] [address] Glomerular Filtration Rate, Estimatedon 05-11-2020 Est, Glom Filt Rate 47 Abnormal ml/min/1 .73m 2 [place] Comment on above: Stage Description GF R, ml/min/1.73 m2 - At increased risk > or = 60 (with chronic kidney disease risk factors) 1 Normal or increased GFR > or = 90 2 Mildly or decreased GFR 60 - 89 3 Moderately decreased GFR 30 - 59 4 Severely decreased GFR 15 - 29 5 Kidney failure <15 (or dialysis) Estimated GFR calculated using abbreviated MDRD formula as recommended by National Kidney Foundation. Calculation based upon serum creatinine and adjusted for age, gender & race. Jaquelin. Internal Med., Vol. 139 (2) pg 137-147. Performed at [facility] [address] [place] [address] Otheron 05-11-2020 Interpretation and review of laboratory results Abnormal [place] AER/ANAEROBIC CULTURE 04-27 AER/ANAEROBIC CULTURE MICROBIOLOGY [facility], [address] [place] [address], [place], [address] PATIENT: MEENU NOLAN LOCATION: [id number] -[id number] -A : 1935 AGE: 84 SEX: F ADM: 05/10/20 Att. Physician: CHELE LAGOS Order Id: [id number] Req. Physician: CHELE LAGOS Source: tissue Site: left hip tissue and bone Collected: 05/10/20 13:31 Current Antibiotics: not stated Antibiotics comment: Supplemental Report STATUS OF ORDERED AND REPORTED TESTS AEROBIC CULTURE FINAL 05/17/20 ANAEROBIC CULTURE FINAL 05/17/20 GRAM STAIN DIRECT FINAL 05/10/20 AEROBIC CULTURE FINAL 05/17/20 08:34 05/11/20 No growth-preliminary 05/12/20 No growth Organism 01 Morganella morganii ssp. morganii very light growth Recovered from anaerobic media Organism 02 Klebsiella pneumoniae very light growth Recovered from anaerobic media ANAEROBIC CULTURE FINAL 05/17/20 08:34 05/12/20 No growth-preliminary 05/16/20 No anaerobes isolated GRAM STAIN DIRECT - FINAL 05/10/20 20:49 05/10/20 Few segmented neutrophils observed. No epithelial cells observed. No organisms observed. Organism 01-mormom Antibiotic ALAN Intrp *Adult dosage Pk bld level Pk urine lev. Amoxicillin/CA >=32 R PO 250-500mg/q 8 hrs. 4.4-7.6 Amox/ . 2.3 clavulani Cefazolin >=64 R IV 1000mg 188 Cefoxitin 16 I IV 1000mg 110 Ampicillin >=32 R PO 500mg (fasting) 2.5-4.0 IV 2g q 6 h 100 Ceftriaxone <=1 S IV 1000mg 150 995 Cefepime <=1 S IV 2000mg 164 Gentamicin <=1 S IV 1.7mg/kg q 8 h 5-7 >=100 Trimethoprim/Vargas <=20 S [id number]/800mgSMX q 12h 1-2TMP/[id number]/ 97SM IV 160mgTMP/800mgSMX q 8 h9TMP/105 SMX S=Susceptible I=Intermediate R=Resistant Susceptibility is determined by comparing the ALAN of organism to the achievable blood or urine level of drug. Level at the site of infection should be a minimum of 5-10 times the ALAN. ALAN and blood and urine levels=mcg/ml.*Standar d dosages from Romero Guide to Antimicrobial Therapy and assumes moderate infection in normal adult populations. For pts. with renal or liver disease consult PDR or pharmacist. Organism 02-klepne Antibiotic ALAN Intrp *Adult dosage Pk bld level Pk urine lev. Amoxicillin/CA <=2 S PO 250-500mg/q 8 hrs. 4.4-7.6 Amox/ . 2.3 clavulani Cefoxitin <=4 S IV 1000mg 110 Ampicillin >=32 R PO 500mg (fasting) 2.5-4.0 IV 2g q 6 h 100 Ceftriaxone <=1 S IV 1000mg 150 995 Tetracycline >=16 R PO 250mg 2-4 100 Cefepime <=1 S IV 2000mg 164 Gentamicin <=1 S IV 1.7mg/kg q 8 h 5-7 >=100 Trimethoprim/Vargas <=20 S [id number]/800mgSMX q 12h 1-2TMP/[id number]/ 97SM IV 160mgTMP/800mgSMX q 8 h9TMP/105 SMX S=Susceptible I=Intermediate R=Resistant Susceptibility is determined by comparing the ALAN of organism to the achievable blood or urine level of drug. Level at the site of infection should be a minimum of 5-10 times the ALAN. ALAN and blood and urine levels=mcg/ml.*Standar d dosages from Romero Guide to Antimicrobial Therapy and assumes moderate infection in normal adult populations. For pts. with renal or liver disease consult PDR or pharmacist. Normal [facility] COVID-19on 05-10-2020 COVID-19 BY RT-PCR NOT DETECTED Normal NOT DETECT [facility] Comment on above: Result Comment: This test has been authorized by FDA under an Emergency Use Authorization (EUA). This test is only authorized for the duration of the time of declaration that circumstances exist justifying the authorization of the emergency use of in vitro diagnostic testing for detection of the SARS-CoV-2 virus and/or diagnosis of COVID-19 infection under section 564 (b)(1) of the Act, 21 U.S.C. 360nnn-3 (b) (1), unless the authorization is terminated or revoked sooner. METHODOLOGY: RT-PCR Performed By: #### C GLENN, EDITA, ANION, EGFR1 #### [facility] [address] [place] [address] SARS-CoV-2, PCR NOT DETECTED NOT DETECT [facility] [place], [place] Comment on above: This test has been a uthorized by FDA under an Emergency Use Authorization (EUA). This test is only authorized for the duration of the time of declaration that circumstances exist justifying the authorization of the emergency use of in vitro diagnostic testing for detection of the SARS-CoV-2 virus and/or diagnosis of COVID-19 infection under section 564 (b)(1) of the Act, 21 U.S.C. 360nnn-3 (b) (1), unless the authorization is terminated or revoked sooner. METHODOLOGY: RT-PCR Performed at [facility] [address] [place] [address] TYPE AND SCREENon 05-10-2020 ABO A [facility]- [place], [place] Rh Factor Positive [facility] [place], [place] TYPE AND SCREEN CAPTUREon ABO CAPTURE A Normal [facility] Comment on above: Performed By: #### C BCWD, BMP, ANION, EGFR1 #### [facility] [address] [place] [address] INDIRECT AUTUMN CAPTURE Negative Normal [facility] Comment on above: Performed By: #### C BCWD, BMP, ANION, EGFR1 #### [facility] [address] [place] [address] RH CAPTURE (2 D CLONES) Positive Normal [facility] Comment on above: Performed By: #### C BCWD, BMP, ANION, EGFR1 #### [facility] [address] [place] [address] XR HIP LEFT (2-3 VIEWS)on XR HIP LEFT (2-3 VIEWS) PROCEDURE: XR HI P LEFT (2-3 VIEWS) CLINICAL INFORMATION: 84-year-old female who underwent left total hip arthroplasty. COMPARISON: No prior study. TECHNIQUE: 3 views of the left hip were obtained. FINDINGS: There is a left total hip arthroplasty. The acetabular and femoral components appear appropriately aligned. Some air is seen within the soft tissues. There is some high density material adjacent to the proximal aspect of the femoral portion of the arthroplasty likely related to surgery. IMPRESSION: Status post left total hip arthroplasty. This report has been created using voice recognition software. It may contain minor errors which are inherent in voice recognition technology. Final report electronically signed by Dr Benson Edwards on 05/10/2020 3:30 PM Interpreted by: Benson Edwards MD Signed by: Benson Edwards MD 05/10/20 Final result Normal [facility] [place], [facility] Incoming Radiant Results From [employer] - 05/10/2020 3:32 PM EDT PROCEDURE: XR HIP LEFT (2-3 VIEWS) CLINICAL INFORMATION: 84-year-old female who underwent left total hip arthroplasty. COMPARISON: No prior study. TECHNIQUE: 3 views of the left hip were obtained. FINDINGS: There is a left total hip arthroplasty. The acetabular and femoral components appear appropriately aligned. Some air is seen within the soft tissues. There is some high density material adjacent to the proximal aspect of the femoral portion of the arthroplasty likely related to surgery. IMPRESSION: Status post left total hip arthroplasty. This report has been created using voice recognition software. It may contain minor errors which are inherent in voice recognition technology. Final report electronically signed by Dr Benson Edwards on 05/10/2020 3:30 PM [place] PROCEDURE: XR HIP LE FT (2-3 VIEWS) CLINICAL INFORMATION: 84-year-old female who underwent left total hip arthroplasty. COMPARISON: No prior study. TECHNIQUE: 3 views of the left hip were obtained. FINDINGS: There is a left total hip arthroplasty. The acetabular and femoral components appear appropriately aligned. Some air is seen within the soft tissues. There is some high density material adjacent to the proximal aspect of the femoral portion of the arthroplasty likely related to surgery. [place] Status post left tot al hip arthroplasty. This report has been created using voice recognition software. It may contain minor errors which are inherent in voice recognition technology. Final report electronically signed by Dr Benson Edwards on 05/10/2020 3:30 PM [place] Basic Metabolic Panelon 08- Anion gap [Moles/Vol] 10 mmol/L 9 - 17 mmol/L [place] Bun/Cre Ratio 20 [place] Calcium [Mass/Vol] 8.9 mg/dL 8.6 - 10. 4 mg/dL [place] Chloride [Moles/Vol] 105 mmol/L 98 - 10 7 mmol/L [place] CO2 [Moles/Vol] 27 mmol/L 20 - 31 mmol/L [place] Creatinine [Mass/Vol] 1.12 mg/dL High 0.5 - 0.9 mg/dL [place] GFR 56 mL/min Low >60 [place] GFR Non- 47 mL/min Low >60 [place] Glucose [Mass/Vol] 110 mg/dL High 70 - 99 mg/dL [place] Interpretation and review of laboratory results Abnormal [place] Potassium [Moles/Vol] 3.8 mmol/L 3.7 - 5.3 mmol/L [place] Sodium [Moles/Vol] 142 mmol/L 135 - 144 mmol/L [place] Urea nitrogen [Mass/Vol] 22 mg/dL 8 - 23 mg/dL [place] CBCon 05-09-2020 Erythrocyte distribution width (RBC) [Ratio] 15.5 % High 11.8 - 14.4 % [place] Hematocrit (Bld) [Volume fraction] 34.3 % Low 36.3 - 47.1 % [place] Hemoglobin (Bld) [Mass/Vol] 10.2 g/dL Low 11.9 - 15.1 g/dL [place] Interpretation and review of laboratory results Abnormal [place] MCH (RBC) [Entitic mass] 29.4 pg 25.2 - 33.5 pg [place] MCHC (RBC) [Mass/Vol] 29.7 g/dL 28.4 - 34.8 g/dL [place] MCV (RBC) [Entitic vol] 98.8 fL 82.6 - 102.9 fL [place] Platelet mean volume (Bld) [Entitic vol] 9.4 fL 8.1 - 13.5 fL [place] Platelets (Bld) [#/Vol] 512 10*3/uL High [place] RBC (Bld) [#/Vol] 3.47 10*6/uL Low 3.95 - 5.1 1 m/uL [place] WBC (Bld) [#/Vol] 0.0 10*3/uL 0.0 per 10 0 WBC [place] WBC (Bld) [#/Vol] 8.6 10*3/uL [place] Metabolic Panelon 05-09-2020 GFR/1.73 sq M predicted among non-blacks MDRD (S/P/Bld) [Vol rate/Area] [place] Comment on above: Stage 1: Some kidney damage normal GFR Stage 2: Mild kidney damage GFR 60-89 Stage 3: Moderate kidney damage GFR 30-59 Stage 4: Severe kidney damage GFR 15-29 Stage 5: Severe kidney damage GFR <15 ESRD - chronic treatment by dialysis or transplant Average GFR for 70 o r more years old: 75 mL/min/1.73sq m Chronic Kidney Disease: <60 mL/min/1.73sq m Kidney failure: <15 mL/min/1.73sq m eGFR calculated using average adult body mass. Additional eGFR calculator available at: http://www.Vetr/multiple_crcl_2012.htm Microscopic Urinalysison Amorphous, UA NOT REPORTED None [place] Bacteria, UA 2+ Abnormal None [place] Casts UA NOT REPORTED /LPF [place] Crystals, UA NOT REPORTED None /HPF [place] Epithelial Cells UA 0 TO 2 [place] Interpretation and review of laboratory results Abnormal [place] Mucus, UA NOT REPORTED None [place] Other Observations UA NOT REPORTED NOT REQ. M [place], [place] RBC (U) [#/Vol] 5 TO 10 [place] Renal Epithelial, UA 0 TO 2 0 /HPF [place], [place] Trichomonas, UA NOT REPORTED None [place] WBC, UA 50 TO 100 [place] Yeast, UA NOT REPORTED None [place] - [place] Urinalysison 05-08-2020 Bilirubin Urine Negative NEGATIVE [place] Color, UA YELLOW YELLOW [place] Glucose, Ur Negative NEGATIVE [place] Interpretation and review of laboratory results Abnormal [place] Ketones Ql (U) Negative NEGATIVE [place] Leukocyte esterase Test strip Ql (U) MODERATE Abnormal NEGATIVE [place] Nitrite, Urine Negative NEGATIVE [place] pH, UA 6.5 [place] Protein (U) [Mass/Vol] TRACE Abnormal NEGATIVE [place], [place] Specific [place], UA 1.020 [place], [place] Turbidity UA SLIGHTLY CLOUDY Abnormal CLEAR [place] Urinalysis Comments NOT REPORTED [place], [place] Urine Hgb 2+ Abnormal NEGATIVE [place] Urobilinogen, Urine Normal Normal [place] Basic Metabolic Panelon Anion gap [Moles/Vol] 17 mmol/L 9 - 17 mmol/L [place] Bun/Cre Ratio 20 [place] Calcium [Mass/Vol] 9.2 mg/dL 8.6 - 10. 4 mg/dL [place] Chloride [Moles/Vol] 97 mmol/L Low 98 - 10 7 mmol/L [place] CO2 [Moles/Vol] 23 mmol/L 20 - 31 mmol/L [place] Creatinine [Mass/Vol] 1.29 mg/dL High 0.5 - 0.9 mg/dL [place] GFR 48 mL/min Low >60 [place], [place] GFR Non- 40 mL/min Low >60 [place] Glucose [Mass/Vol] 209 mg/dL High 70 - 99 mg/dL [place] Interpretation and review of laboratory results Abnormal [place] Potassium [Moles/Vol] 3.7 mmol/L 3.7 - 5.3 mmol/L [place] Sodium [Moles/Vol] 137 mmol/L 135 - 144 mmol/L [place] Urea nitrogen [Mass/Vol] 26 mg/dL High 8 - 23 mg/dL [place] CBC Auto Differentialon Basophils (Bld) [#/Vol] 10*3/uL [place] Basophils/100 WBC (Bld) 0 % 0 - 2 % [place] Differential Type NOT REPORTED [place] Eosinophils (Bld) [#/Vol] 0.17 10*3/uL [place] Eosinophils/100 WBC (Bld) 2 % 1 - 4 % [place] Erythrocyte distribution width (RBC) [Ratio] 15.3 % High 11.8 - 14.4 % [place] Hematocrit (Bld) [Volume fraction] 36.5 % 36.3 - 47.1 % [place] Hemoglobin (Bld) [Mass/Vol] 11.2 g/dL Low 11.9 - 15.1 g/dL [place] Immature granulocytes (Bld) [#/Vol] 1 % High 0 [place] Immature granulocytes (Bld) [#/Vol] 0.05 10*3/uL [place] Interpretation and review of laboratory results Abnormal [place] Lymphocytes (Bld) [#/Vol] 2.30 10*3/uL [place] Lymphocytes/100 WBC (Bld) 21 % Low 24 - 43 % [place] MCH (RBC) [Entitic mass] 30.3 pg 25.2 - 33.5 pg [place] MCHC (RBC) [Mass/Vol] 30.7 g/dL 28.4 - 34.8 g/dL [place] MCV (RBC) [Entitic vol] 98.6 fL 82.6 - 102.9 fL [place] Monocytes (Bld) [#/Vol] 1.01 10*3/uL [place] Monocytes/100 WBC (Bld) 9 % 3 - 12 % [place] Platelet mean volume (Bld) [Entitic vol] 9.7 fL 8.1 - 13.5 fL [place] Platelets (Bld) [#/Vol] NOT REPORTED [place] Platelets (Bld) [#/Vol] 481 10*3/uL High [place] RBC (Bld) [#/Vol] 3.70 10*6/uL Low 3.95 - 5.1 1 m/uL [place] RBC morphology finding Nom (Bld) NOT REPORTED [place] Segmented neutrophils/100 WBC (Bld) 67 % High 36 - 65 % [place] Segs Absolute 7.38 [place] WBC (Bld) [#/Vol] 10.9 10*3/uL [place] WBC (Bld) [#/Vol] 0.0 10*3/uL 0.0 per 10 0 WBC [place] WBC Morphology NOT REPORTED [place] Metabolic Panelon 05-03-2020 GFR/1.73 sq M predicted among non-blacks MDRD (S/P/Bld) [Vol rate/Area] [place] Comment on above: Stage 1: Some kidney damage normal GFR Stage 2: Mild kidney damage GFR 60-89 Stage 3: Moderate kidney damage GFR 30-59 Stage 4: Severe kidney damage GFR 15-29 Stage 5: Severe kidney damage GFR <15 ESRD - chronic treatment by dialysis or transplant Average GFR for 70 o r more years old: 75 mL/min/1.73sq m Chronic Kidney Disease: <60 mL/min/1.73sq m Kidney failure: <15 mL/min/1.73sq m eGFR calculated using average adult body mass. Additional eGFR calculator available at: http://www.Vetr/multiple_crcl_2012.htm CBC Auto Differentialon 03-27 Basophils (Bld) [#/Vol] 0.00 10*3/uL [place] Basophils/100 WBC (Bld) 0 % 0 - 2 % [place] Differential Type NOT REPORTED [place] Eosinophils (Bld) [#/Vol] 0.00 10*3/uL [place] Eosinophils/100 WBC (Bld) 0 % Low 1 - 4 % [place] Erythrocyte distribution width (RBC) [Ratio] 15.9 % High 11.8 - 14.4 % [place] Hematocrit (Bld) [Volume fraction] 36.3 % 36.3 - 47.1 % [place] Hemoglobin (Bld) [Mass/Vol] 11.0 g/dL Low 11.9 - 15.1 g/dL [place] Immature granulocytes (Bld) [#/Vol] 4 % High 0 [place] Immature granulocytes (Bld) [#/Vol] 0.51 10*3/uL [place] Interpretation and review of laboratory results Abnormal [place] Lymphocytes (Bld) [#/Vol] 1.40 10*3/uL [place] Lymphocytes/100 WBC (Bld) 11 % Low 24 - 43 % [place] MCH (RBC) [Entitic mass] 30.1 pg 25.2 - 33.5 pg [place] MCHC (RBC) [Mass/Vol] 30.3 g/dL 28.4 - 34.8 g/dL [place] MCV (RBC) [Entitic vol] 99.5 fL 82.6 - 102.9 fL [place] Monocytes (Bld) [#/Vol] 0.76 10*3/uL [place] Monocytes/100 WBC (Bld) 6 % 3 - 12 % M [place], [place] Morphology [place] (Bld) [Interp] Normal [place] Platelet mean volume (Bld) [Entitic vol] 10.0 fL 8.1 - 13.5 fL [place] Platelets (Bld) [#/Vol] NOT REPORTED [place] Platelets (Bld) [#/Vol] 613 10*3/uL [place] RBC (Bld) [#/Vol] 3.65 10*6/uL Low 3.95 - 5.1 1 m/uL [place] RBC morphology finding Nom (Bld) NOT REPORTED [place] Segmented neutrophils/100 WBC (Bld) 79 % High 36 - 65 % [place] Segs Absolute 10.03 High [place] WBC (Bld) [#/Vol] 0.0 10*3/uL 0.0 per 10 0 WBC [place] WBC (Bld) [#/Vol] 12.7 10*3/uL [place] WBC Morphology NOT REPORTED [place] Comprehensive Metabolic Pane riddhi 04-10-2020 Albumin [Mass/Vol] 2.4 g/dL Low 3.5 - 5.2 g/dL [place] Albumin/Globulin [Mass ratio] 0.8 {ratio} Low [place] ALP [Catalytic activity/Vol] 136 U/L High 35 - 104 U/L [place] ALT [Catalytic activity/Vol] 29 U/L 5 - 33 U/L [place] Anion gap [Moles/Vol] 11 mmol/L 9 - 17 mmol/L [place] AST [Catalytic activity/Vol] 20 U/L <32 [place] Bilirubin Ql (U) 0.20 mg/dL Low 0.3 - 1.2 mg/dL [place] Bun/Cre Ratio 20 [place] Calcium [Mass/Vol] 8.2 mg/dL Low 8.6 - 10. 4 mg/dL [place] Chloride [Moles/Vol] 100 mmol/L 98 - 10 7 mmol/L [place] CO2 [Moles/Vol] 25 mmol/L 20 - 31 mmol/L [place] Creatinine [Mass/Vol] 1.11 mg/dL High 0.5 - 0.9 mg/dL [place] GFR 57 mL/min Low >60 [place], [place] GFR Non- 47 mL/min Low >60 [place] Glucose [Mass/Vol] 135 mg/dL High 70 - 99 mg/dL [place] Interpretation and review of laboratory results Abnormal [place] Potassium [Moles/Vol] 3.6 mmol/L Low 3.7 - 5.3 mmol/L [place] Protein [Mass/Vol] 5.6 g/dL Low 6.4 - 8.3 g/dL [place] Sodium [Moles/Vol] 136 mmol/L 135 - 144 mmol/L [place] Urea nitrogen [Mass/Vol] 22 mg/dL 8 - 23 mg/dL [place] Metabolic Panelon 04-10-2020 GFR/1.73 sq M predicted among non-blacks MDRD (S/P/Bld) [Vol rate/Area] [place], [place] Comment on above: Stage 1: Some kidney damage normal GFR Stage 2: Mild kidney damage GFR 60-89 Stage 3: Moderate kidney damage GFR 30-59 Stage 4: Severe kidney damage GFR 15-29 Stage 5: Severe kidney damage GFR <15 ESRD - chronic treatment by dialysis or transplant Average GFR for 70 o r more years old: 75 mL/min/1.73sq m Chronic Kidney Disease: <60 mL/min/1.73sq m Kidney failure: <15 mL/min/1.73sq m eGFR calculated using average adult body mass. Additional eGFR calculator available at: http://www.Vetr/multiple_crcl_2012.htm Urinalysis with Microscopico n 04-10-2020 Amorphous, UA NOT REPORTED None [facility] [place], [place] Bacteria, UA TRACE Abnormal None [place] Bilirubin Urine Negative NEGATIVE [place] Casts UA NOT REPORTED /LPF [place] Color, UA YELLOW YELLOW [place] Crystals, UA NOT REPORTED None /HPF [place] Epithelial Cells UA 10 TO 20 [place], [place] Glucose, Ur Negative NEGATIVE [place] Interpretation and review of laboratory results Abnormal [place] Ketones Ql (U) Negative NEGATIVE [place] Leukocyte esterase Test strip Ql (U) Negative NEGATIVE [place] Mucus, UA NOT REPORTED None [place] Nitrite, Urine Negative NEGATIVE [place] Other Observations UA NOT REPORTED NOT REQ. M [place], [place] pH, UA 7.0 [place] Protein (U) [Mass/Vol] Negative NEGATIVE [place], [place] RBC (U) [#/Vol] 0 TO 2 [place], [place] Renal Epithelial, UA NOT REPORTED 0 /HPF [place] Specific [place], UA 1.015 [place], [place] Trichomonas, UA NOT REPORTED None [place], [place] Turbidity UA CLEAR CLEAR [place] Urinalysis Comments NOT REPORTED [place] Urine Hgb Negative NEGATIVE [place] Urobilinogen, Urine Normal Normal [place] WBC, UA 0 TO 2 [place], [place] Yeast, UA NOT REPORTED None [place] CBC auto differentialon 03-27 Basophils (Bld) [#/Vol] 0.04 10*3/uL [place], [place] Basophils/100 WBC (Bld) 0 % 0 - 2 % [place], [place] Differential Type NOT REPORTED [place] Eosinophils (Bld) [#/Vol] 0.24 10*3/uL [place] Eosinophils/100 WBC (Bld) 2 % 1 - 4 % [place] Erythrocyte distribution width (RBC) [Ratio] 15.6 % High 11.8 - 14.4 % [place] Hematocrit (Bld) [Volume fraction] 29.2 % Low 36.3 - 47.1 % [place] Hemoglobin (Bld) [Mass/Vol] 8.8 g/dL Low 11.9 - 15.1 g/dL [place] Immature granulocytes (Bld) [#/Vol] 0.49 10*3/uL High [place] Immature granulocytes (Bld) [#/Vol] 3 % High 0 [place] Interpretation and review of laboratory results Abnormal [place] Lymphocytes (Bld) [#/Vol] 1.99 10*3/uL [place] Lymphocytes/100 WBC (Bld) 13 % Low 24 - 43 % [place] MCH (RBC) [Entitic mass] 30.1 pg 25.2 - 33.5 pg [place] MCHC (RBC) [Mass/Vol] 30.1 g/dL 28.4 - 34.8 g/dL [place] MCV (RBC) [Entitic vol] 100.0 fL 82.6 - 102.9 fL [place], [place] Monocytes (Bld) [#/Vol] 1.02 10*3/uL [place] Monocytes/100 WBC (Bld) 7 % 3 - 12 % [place] Platelet mean volume (Bld) [Entitic vol] 10.7 fL 8.1 - 13.5 fL [place] Platelets (Bld) [#/Vol] NOT REPORTED [place] Platelets (Bld) [#/Vol] 444 10*3/uL [place] RBC (Bld) [#/Vol] 2.92 10*6/uL Low 3.95 - 5.1 1 m/uL [place], [place] RBC morphology finding Nom (Bld) NOT REPORTED [place] Segmented neutrophils/100 WBC (Bld) 75 % High 36 - 65 % [place] Segs Absolute 11.50 High [place], [place] WBC (Bld) [#/Vol] 0.0 10*3/uL 0.0 per 10 0 WBC [place] WBC (Bld) [#/Vol] 15.3 10*3/uL [place] WBC Morphology NOT REPORTED [place] Comprehensive metabolic pane riddhi 04-06-2020 Albumin [Mass/Vol] 2.1 g/dL Low 3.5 - 5.2 g/dL [place] Albumin/Globulin [Mass ratio] 0.7 {ratio} Low [place] ALP [Catalytic activity/Vol] 139 U/L High 35 - 104 U/L [place], [place] ALT [Catalytic activity/Vol] 67 U/L High 5 - 33 U/L [place] Anion gap [Moles/Vol] 11 mmol/L 9 - 17 mmol/L [place] AST [Catalytic activity/Vol] 61 U/L High <32 [place], [place] Bilirubin Ql (U) 0.34 mg/dL 0.3 - 1.2 mg/dL [place] Bun/Cre Ratio 20 [place] Calcium [Mass/Vol] 8.2 mg/dL Low 8.6 - 10. 4 mg/dL [place] Chloride [Moles/Vol] 101 mmol/L 98 - 10 7 mmol/L [place] CO2 [Moles/Vol] 25 mmol/L 20 - 31 mmol/L [place] Creatinine [Mass/Vol] 1.12 mg/dL High 0.5 - 0.9 mg/dL [place] GFR 56 mL/min Low >60 [place], [place] GFR Non- 47 mL/min Low >60 [place], [place] Glucose [Mass/Vol] 149 mg/dL High 70 - 99 mg/dL [place] Interpretation and review of laboratory results Abnormal [place] Potassium [Moles/Vol] 3.5 mmol/L Low 3.7 - 5.3 mmol/L [place] Protein [Mass/Vol] 5.3 g/dL Low 6.4 - 8.3 g/dL [place] Sodium [Moles/Vol] 137 mmol/L 135 - 144 mmol/L [place], [place] Urea nitrogen [Mass/Vol] 22 mg/dL 8 - 23 mg/dL [place] Metabolic Panelon 04-06-2020 GFR/1.73 sq M predicted among non-blacks MDRD (S/P/Bld) [Vol rate/Area] [place], [place] Comment on above: Stage 1: Some kidney damage normal GFR Stage 2: Mild kidney damage GFR 60-89 Stage 3: Moderate kidney damage GFR 30-59 Stage 4: Severe kidney damage GFR 15-29 Stage 5: Severe kidney damage GFR <15 ESRD - chronic treatment by dialysis or transplant Average GFR for 70 o r more years old: 75 mL/min/1.73sq m Chronic Kidney Disease: <60 mL/min/1.73sq m Kidney failure: <15 mL/min/1.73sq m eGFR calculated using average adult body mass. Additional eGFR calculator available at: http://www.Vetr/multiple_crcl_2011.htm CBC auto differentialon 03-27 Basophils (Bld) [#/Vol] 10*3/uL M [place] Basophils/100 WBC (Bld) 0 % 0 - 2 % [place] Differential Type NOT REPORTED [place] Eosinophils (Bld) [#/Vol] 0.05 10*3/uL [place] Eosinophils/100 WBC (Bld) 0 % Low 1 - 4 % [place] Erythrocyte distribution width (RBC) [Ratio] 15.3 % High 11.8 - 14.4 % [place] Hematocrit (Bld) [Volume fraction] 32.0 % Low 36.3 - 47.1 % [place] Hemoglobin (Bld) [Mass/Vol] 10.0 g/dL Low 11.9 - 15.1 g/dL [place] Immature granulocytes (Bld) [#/Vol] 2 % High 0 [place] Immature granulocytes (Bld) [#/Vol] 0.40 10*3/uL [place] Interpretation and review of laboratory results Abnormal [place] Lymphocytes (Bld) [#/Vol] 1.67 10*3/uL [place] Lymphocytes/100 WBC (Bld) 9 % Low 24 - 43 % [place] MCH (RBC) [Entitic mass] 30.8 pg 25.2 - 33.5 pg [place] MCHC (RBC) [Mass/Vol] 31.3 g/dL 28.4 - 34.8 g/dL [place] MCV (RBC) [Entitic vol] 98.5 fL 82.6 - 102.9 fL [place] Monocytes (Bld) [#/Vol] 1.38 10*3/uL High [place] Monocytes/100 WBC (Bld) 8 % 3 - 12 % [place] Platelet mean volume (Bld) [Entitic vol] 10.7 fL 8.1 - 13.5 fL [place] Platelets (Bld) [#/Vol] 497 10*3/uL [place] Platelets (Bld) [#/Vol] NOT REPORTED [place] RBC (Bld) [#/Vol] 3.25 10*6/uL Low 3.95 - 5.1 1 m/uL [place] RBC morphology finding Nom (Bld) NOT REPORTED [place] Segmented neutrophils/100 WBC (Bld) 81 % High 36 - 65 % [place] Segs Absolute 14.36 High [place] WBC (Bld) [#/Vol] 17.9 10*3/uL High [place] WBC (Bld) [#/Vol] 0.0 10*3/uL 0.0 per 10 0 WBC [place] WBC Morphology NOT REPORTED [place] COVID-19on 04-05-2020 SARS-CoV-2 [place] SARS-CoV-2, PCR [place] SARS-CoV-2, Rapid Not Detected Not Detected [place] Comment on above: Rapid NAAT: The specimen is NEGATIVE for SARS-CoV-2, the novel coronavirus associated with COVID-19. Negative results should be treated as presumptive and, if inconsistent with clinical signs and symptoms or necessary for patient management, should be tested with an alternative molecular assay. Negative results do not preclude SARS-CoV-2 infection and should not be used as the sole basis for patient management decisions. Fact sheet for Healthcare Providers: https://www.fda.gov/media/297934/download Fact sheet for Patients: https://www.fda.gov/media/953600/download Methodology: Isothermal Nucleic Acid Amplification Source .NASOPHARYNGEAL SWAB [place] Comprehensive metabolic pane riddhi 04-05-2020 Albumin [Mass/Vol] 2.5 g/dL Low 3.5 - 5.2 g/dL [place] Albumin/Globulin [Mass ratio] 0.7 {ratio} Low [place] ALP [Catalytic activity/Vol] 137 U/L High 35 - 104 U/L [place] ALT [Catalytic activity/Vol] 76 U/L High 5 - 33 U/L [place] Anion gap [Moles/Vol] 16 mmol/L 9 - 17 mmol/L [place] AST [Catalytic activity/Vol] 73 U/L High <32 [place], [place] Bilirubin Ql (U) 0.41 mg/dL 0.3 - 1.2 mg/dL [place] Bun/Cre Ratio 21 [place] Calcium [Mass/Vol] 8.4 mg/dL Low 8.6 - 10. 4 mg/dL [place] Chloride [Moles/Vol] 102 mmol/L 98 - 10 7 mmol/L [place] CO2 [Moles/Vol] 24 mmol/L 20 - 31 mmol/L [place] Creatinine [Mass/Vol] 1.16 mg/dL High 0.5 - 0.9 mg/dL [place], [place] GFR 54 mL/min Low >60 [place], [place] GFR Non- 45 mL/min Low >60 [place], [place] Glucose [Mass/Vol] 128 mg/dL High 70 - 99 mg/dL [place] Interpretation and review of laboratory results Abnormal [place] Potassium [Moles/Vol] 3.3 mmol/L Low 3.7 - 5.3 mmol/L [place] Protein [Mass/Vol] 6.3 g/dL Low 6.4 - 8.3 g/dL [place] Sodium [Moles/Vol] 142 mmol/L 135 - 144 mmol/L [place] Urea nitrogen [Mass/Vol] 24 mg/dL High 8 - 23 mg/dL [place] Metabolic Panelon 04-05-2020 GFR/1.73 sq M predicted among non-blacks MDRD (S/P/Bld) [Vol rate/Area] [place], [place] Comment on above: Stage 1: Some kidney damage normal GFR Stage 2: Mild kidney damage GFR 60-89 Stage 3: Moderate kidney damage GFR 30-59 Stage 4: Severe kidney damage GFR 15-29 Stage 5: Severe kidney damage GFR <15 ESRD - chronic treatment by dialysis or transplant Average GFR for 70 o r more years old: 75 mL/min/1.73sq m Chronic Kidney Disease: <60 mL/min/1.73sq m Kidney failure: <15 mL/min/1.73sq m eGFR calculated using average adult body mass. Additional eGFR calculator available at: http://www.[employer].Shoptimise/multiple_crcl_2012.htm Basic Metabolic Panel w/ Ref tosha to MGon 04-03-2020 Anion gap [Moles/Vol] 18 mmol/L High 9 - 17 mmol/L [place] Bun/Cre Ratio 26 [place] Calcium [Mass/Vol] 9.0 mg/dL 8.6 - 10. 4 mg/dL [place] Chloride [Moles/Vol] 96 mmol/L Low 98 - 10 7 mmol/L [place] CO2 [Moles/Vol] 26 mmol/L 20 - 31 mmol/L [place] Creatinine [Mass/Vol] 1.17 mg/dL High 0.5 - 0.9 mg/dL [place] GFR 54 mL/min Low >60 [place], [place] GFR Non- 44 mL/min Low >60 [place], [place] Glucose [Mass/Vol] 157 mg/dL High 70 - 99 mg/dL [place] Interpretation and review of laboratory results Abnormal [place] Potassium [Moles/Vol] 3.5 mmol/L Low 3.7 - 5.3 mmol/L [place] Sodium [Moles/Vol] 140 mmol/L 135 - 144 mmol/L [place] Urea nitrogen [Mass/Vol] 30 mg/dL High 8 - 23 mg/dL [place], [place] CBCon 04-03-2020 Erythrocyte distribution width (RBC) [Ratio] 14.9 % High 11.8 - 14.4 % [place] Hematocrit (Bld) [Volume fraction] 34.0 % Low 36.3 - 47.1 % [place] Hemoglobin (Bld) [Mass/Vol] 10.8 g/dL Low 11.9 - 15.1 g/dL [place] Interpretation and review of laboratory results Abnormal [place] MCH (RBC) [Entitic mass] 30.9 pg 25.2 - 33.5 pg [place] MCHC (RBC) [Mass/Vol] 31.8 g/dL 28.4 - 34.8 g/dL [place] MCV (RBC) [Entitic vol] 97.4 fL 82.6 - 102.9 fL [place] Platelet mean volume (Bld) [Entitic vol] 10.6 fL 8.1 - 13.5 fL [place] Platelets (Bld) [#/Vol] 455 10*3/uL [place] RBC (Bld) [#/Vol] 3.49 10*6/uL Low 3.95 - 5.1 1 m/uL [place] WBC (Bld) [#/Vol] 17.6 10*3/uL [place] WBC (Bld) [#/Vol] 0.0 10*3/uL 0.0 per 10 0 WBC [place] EKG 12 Leadon 04-03-2020 Atrial Rate 78 BPM [place], KY P Mobile 90 degrees [place], [place] P-R Interval 174 ms [place] Q-T Interval 426 ms [place] QRS Duration 114 ms [place] QTc Calculation (Bazett) 485 ms [place], [place] R Mobile -27 degrees [facility] [place], [place] T Mobile 61 degrees [place], [place] Urea nitrogen [Mass/Vol] Sinus rhythm with Premature atrial complexes Incomplete left bundle branch block Left ventricular hypertrophy with repolarization abnormality Abnormal ECG When compared with ECG of 02-APR-2020 14:43, Premature atrial complexes are now Present Minimal criteria for Septal infarct are no longer Present Confirmed by Sadie GRACE MD ([id number]) on 04/03/2020 7:17:15 AM [place] Ventricular Rate 78 BPM [place], Mhpn Incoming E kg Results From [facility] - 04/03/2020 7:17 AM EDT Sinus rhythm with Premature atrial complexes Incomplete left bundle branch block Left ventricular hypertrophy with repolarization abnormality Abnormal ECG When compared with ECG of 02-APR-2020 14:43, Premature atrial complexes are now Present Minimal criteria for Septal infarct are no longer Present Confirmed by Sadie GRACE MD ([id number]) on 04/03/2020 7:17:15 AM [place] Lactic acid, plasmaon 2019 Lactate [Moles/Vol] 1.9 mmol/L 0.5 - 2. 2 mmol/L [place], [place] Lactic Acid, Whole Blood NOT REPORTED 0.7 - 2.1 mmol/L [place] Magnesiumon 04-03-2020 Magnesium [Mass/Vol] 1.9 mg/dL 1.6 - 2 .6 mg/dL [place] Metabolic Panelon 04-03-2020 GFR/1.73 sq M predicted among non-blacks MDRD (S/P/Bld) [Vol rate/Area] [place], [place] Comment on above: Stage 1: Some kidney damage normal GFR Stage 2: Mild kidney damage GFR 60-89 Stage 3: Moderate kidney damage GFR 30-59 Stage 4: Severe kidney damage GFR 15-29 Stage 5: Severe kidney damage GFR <15 ESRD - chronic treatment by dialysis or transplant Average GFR for 70 o r more years old: 75 mL/min/1.73sq m Chronic Kidney Disease: <60 mL/min/1.73sq m Kidney failure: <15 mL/min/1.73sq m eGFR calculated using average adult body mass. Additional eGFR calculator available at: http://www.Vetr/multiple_crcl_2012.htm Basic Metabolic Panelon Anion gap [Moles/Vol] 16 mmol/L 9 - 17 mmol/L [place] Bun/Cre Ratio 26 High [place] Calcium [Mass/Vol] 8.9 mg/dL 8.6 - 10. 4 mg/dL [place] Chloride [Moles/Vol] 92 mmol/L Low 98 - 10 7 mmol/L [place] CO2 [Moles/Vol] 29 mmol/L 20 - 31 mmol/L [place] Creatinine [Mass/Vol] 1.41 mg/dL High 0.5 - 0.9 mg/dL [place] GFR 43 mL/min Low >60 [place] GFR Non- 36 mL/min Low >60 [place] Glucose [Mass/Vol] 200 mg/dL High 70 - 99 mg/dL [place] Interpretation and review of laboratory results Abnormal [place] Potassium [Moles/Vol] 2.9 mmol/L Critically low 3.7 - 5.3 mmol/L [place] Sodium [Moles/Vol] 137 mmol/L 135 - 144 mmol/L [place] Urea nitrogen [Mass/Vol] 37 mg/dL High 8 - 23 mg/dL [place] Basic Metabolic Panel w/ Ref tosha to MGon 04-02-2020 Anion gap [Moles/Vol] 15 mmol/L 9 - 17 mmol/L [place] Bun/Cre Ratio 26 High [place] Calcium [Mass/Vol] 8.6 mg/dL 8.6 - 10. 4 mg/dL [place] Chloride [Moles/Vol] 96 mmol/L Low 98 - 10 7 mmol/L [place] CO2 [Moles/Vol] 28 mmol/L 20 - 31 mmol/L [place] Creatinine [Mass/Vol] 1.33 mg/dL High 0.5 - 0.9 mg/dL [place] GFR 46 mL/min Low >60 [place] GFR Non- 38 mL/min Low >60 [place] Glucose [Mass/Vol] 149 mg/dL High 70 - 99 mg/dL [place] Interpretation and review of laboratory results Abnormal [place] Potassium [Moles/Vol] 3.4 mmol/L Low 3.7 - 5.3 mmol/L [place] Sodium [Moles/Vol] 139 mmol/L 135 - 144 mmol/L [place] Urea nitrogen [Mass/Vol] 35 mg/dL High 8 - 23 mg/dL [place] CBC Auto Differentialon Basophils (Bld) [#/Vol] 10*3/uL M [place] Basophils/100 WBC (Bld) 0 % 0 - 2 % M [place] Differential Type NOT REPORTED [place] Eosinophils (Bld) [#/Vol] 10*3/uL [place] Eosinophils/100 WBC (Bld) 0 % Low 1 - 4 % [place] Erythrocyte distribution width (RBC) [Ratio] 14.7 % High 11.8 - 14.4 % [place] Hematocrit (Bld) [Volume fraction] 32.6 % Low 36.3 - 47.1 % [place] Hemoglobin (Bld) [Mass/Vol] 10.5 g/dL Low 11.9 - 15.1 g/dL [place] Immature granulocytes (Bld) [#/Vol] 1 % High 0 [place] Immature granulocytes (Bld) [#/Vol] 0.15 10*3/uL [place] Interpretation and review of laboratory results Abnormal [place] Lymphocytes (Bld) [#/Vol] 1.25 10*3/uL [place] Lymphocytes/100 WBC (Bld) 7 % Low 24 - 43 % [place] MCH (RBC) [Entitic mass] 30.7 pg 25.2 - 33.5 pg [place] MCHC (RBC) [Mass/Vol] 32.2 g/dL 28.4 - 34.8 g/dL [place] MCV (RBC) [Entitic vol] 95.3 fL 82.6 - 102.9 fL [place] Monocytes (Bld) [#/Vol] 1.50 10*3/uL High [place] Monocytes/100 WBC (Bld) 9 % 3 - 12 % [place] Platelet mean volume (Bld) [Entitic vol] 10.8 fL 8.1 - 13.5 fL [place] Platelets (Bld) [#/Vol] NOT REPORTED [place] Platelets (Bld) [#/Vol] 401 10*3/uL [place] RBC (Bld) [#/Vol] 3.42 10*6/uL Low 3.95 - 5.1 1 m/uL [place] RBC morphology finding Nom (Bld) NOT REPORTED [place] Segmented neutrophils/100 WBC (Bld) 83 % High 36 - 65 % [place] Segs Absolute 14.35 High [place] WBC (Bld) [#/Vol] 17.3 10*3/uL High [place] WBC (Bld) [#/Vol] 0.0 10*3/uL 0.0 per 10 0 WBC [place] WBC Morphology NOT REPORTED [place] EKG 12 Leadon 04-02-2020 Atrial Rate 73 BPM [place] P Mobile 90 degrees [place] P-R Interval 192 ms [place] Q-T Interval 430 ms [place] QRS Duration 108 ms [place] QTc Calculation (Bazett) 473 ms [place] R Mobile -33 degrees [facility] [place], [place] T Mobile 50 degrees [place] Ventricular Rate 73 BPM [place] Normal sinus rhythm Left axis deviation Pulmonary disease pattern Left ventricular hypertrophy with repolarization abnormality Cannot rule out Septal infarct (cited on or before 30-JUN-2001) Abnormal ECG When compared with ECG of 11-NOV-2011 11:12, QRS duration has increased Questionable change in initial forces of Anterior leads Confirmed by Sadie GRACE MD ([id number]) on 04/02/2020 4:19:24 PM [place], Mhpn Incoming E kg Results From [facility] - 04/02/2020 4:19 PM EDT Normal sinus rhythm Left axis deviation Pulmonary disease pattern Left ventricular hypertrophy with repolarization abnormality Cannot rule out Septal infarct (cited on or before 30-JUN-2001) Abnormal ECG When compared with ECG of 11-NOV-2011 11:12, QRS duration has increased Questionable change in initial forces of Anterior leads Confirmed by Sadie GRACE MD ([id number]) on 04/02/2020 4:19:24 PM [place] Magnesiumon 04-02-2020 Magnesium [Mass/Vol] 2.0 mg/dL 1.6 - 2 .6 mg/dL [place] Metabolic Panelon 04-02-2020 GFR/1.73 sq M predicted among non-blacks MDRD (S/P/Bld) [Vol rate/Area] [place], [place] Comment on above: Average GFR for 70 o r more years old: 75 mL/min/1.73sq m Chronic Kidney Disease: <60 mL/min/1.73sq m Kidney failure: <15 mL/min/1.73sq m eGFR calculated using average adult body mass. Additional eGFR calculator available at: http://www.Vetr/multiple_crcl_2012.htm Stage 1: Some kidney damage normal GFR Stage 2: Mild kidney damage GFR 60-89 Stage 3: Moderate kidney damage GFR 30-59 Stage 4: Severe kidney damage GFR 15-29 Stage 5: Severe kidney damage GFR <15 ESRD - chronic treatment by dialysis or transplant GFR/1.73 sq M predicted among non-blacks MDRD (S/P/Bld) [Vol rate/Area] [place] Comment on above: Average GFR for 70 o r more years old: 75 mL/min/1.73sq m Chronic Kidney Disease: <60 mL/min/1.73sq m Kidney failure: <15 mL/min/1.73sq m eGFR calculated using average adult body mass. Additional eGFR calculator available at: http://www.Vetr/Adynxx_crcl_2011.htm Stage 1: Some kidney damage normal GFR Stage 2: Mild kidney damage GFR 60-89 Stage 3: Moderate kidney damage GFR 30-59 Stage 4: Severe kidney damage GFR 15-29 Stage 5: Severe kidney damage GFR <15 ESRD - chronic treatment by dialysis or transplant Troponinon 04-02-2020 Interpretation and review of laboratory results Abnormal [place] Troponin I.cardiac [Mass/Vol] NOT REPORTED [place] Troponin T.cardiac [Mass/Vol] NOT REPORTED <0.03 ng/mL [place] Troponin, High Sensitivity 44 ng/L High 0 - 14 ng/L [place] Comment on above: High Sensitivity Troponin values cannot be compared with other Troponin methodologies. Patients with high levels of Biotin oral intake (i.e >5mg/day) may have falsely decreased Troponin levels. Samples collected within 8 hours of biotin intake may require additional information for diagnosis. Interpretation and review of laboratory results Abnormal [place] Troponin I.cardiac [Mass/Vol] NOT REPORTED [place] Troponin T.cardiac [Mass/Vol] NOT REPORTED <0.03 ng/mL [place] Troponin, High Sensitivity 47 ng/L High 0 - 14 ng/L [place] Comment on above: High Sensitivity Troponin values cannot be compared with other Troponin methodologies. Patients with high levels of Biotin oral intake (i.e >5mg/day) may have falsely decreased Troponin levels. Samples collected within 8 hours of biotin intake may require additional information for diagnosis. Urinalysis with Microscopico n 04-02-2020 Amorphous, UA NOT REPORTED None [place] Bacteria, UA 4+ Abnormal None [place] Bilirubin Urine Negative NEGATIVE [place] Casts UA NOT REPORTED /LPF [place] Color, UA YELLOW YELLOW [place] Crystals, UA NOT REPORTED None /HPF [place] Epithelial Cells UA 0 TO 2 [place] Glucose, Ur Negative NEGATIVE [place] Interpretation and review of laboratory results Abnormal [place] Ketones Ql (U) Negative NEGATIVE [place] Leukocyte esterase Test strip Ql (U) Negative NEGATIVE [place] Mucus, UA NOT REPORTED None [place] Nitrite, Urine Positive Abnormal NEGATIVE [place] Other Observations UA NOT REPORTED NOT REQ. M [place] pH, UA 6.0 [place] Protein (U) [Mass/Vol] 1+ Abnormal NEGATIVE [place] RBC (U) [#/Vol] 0 TO 2 [place] Renal Epithelial, UA NOT REPORTED 0 /HPF [place] Specific [place], UA 1.025 High [place], [place] Trichomonas, UA NOT REPORTED None [place] Turbidity UA SLIGHTLY CLOUDY Abnormal CLEAR [place] Urinalysis Comments NOT REPORTED [place] Urine Hgb 1+ Abnormal NEGATIVE [place] Urobilinogen, Urine Normal Normal [place] WBC, UA 2 TO 5 [place] Yeast, UA NOT REPORTED None [place] XR CHEST 1 VWon 04-02-2020 No acute cardiopulmonary disease. [place], Mhpn Incoming Radiant Results From [employer] - 04/02/2020 8:01 PM EDT EXAMINATION: ONE XRAY VIEW OF THE CHEST 04/02/2020 2:26 pm COMPARISON: February 09, 2020 HISTORY: ORDERING SYSTEM PROVIDED HISTORY: General malaise rule out pneumonia TECHNOLOGIST PROVIDED HISTORY: General malaise rule out pneumonia FINDINGS: No lines or tubes. Normal cardiomediastinal silhouette. Lower lung volumes. The lungs are clear without focal consolidation or pleural effusion. No suspicious pulmonary nodules. No pulmonary edema. No pneumothorax. No acute osseous abnormality. IMPRESSION: No acute cardiopulmonary disease. [place] EXAMINATION: ONE XRA Y VIEW OF THE CHEST 04/02/2020 2:26 pm COMPARISON: February 09, 2020 HISTORY: ORDERING SYSTEM PROVIDED HISTORY: General malaise rule out pneumonia TECHNOLOGIST PROVIDED HISTORY: General malaise rule out pneumonia FINDINGS: No lines or tubes. Normal cardiomediastinal silhouette. Lower lung volumes. The lungs are clear without focal consolidation or pleural effusion. No suspicious pulmonary nodules. No pulmonary edema. No pneumothorax. No acute osseous abnormality. [place] CBC Auto Differentialon 02-26 Basophils (Bld) [#/Vol] 10*3/uL [place] Basophils/100 WBC (Bld) 0 % 0 - 2 % [place] Differential Type NOT REPORTED [place] Eosinophils (Bld) [#/Vol] 0.07 10*3/uL [place] Eosinophils/100 WBC (Bld) 1 % 1 - 4 % [place] Erythrocyte distribution width (RBC) [Ratio] 14.1 % 11.8 - 14.4 % [place] Hematocrit (Bld) [Volume fraction] 35.7 % Low 36.3 - 47.1 % [place] Hemoglobin (Bld) [Mass/Vol] 11.1 g/dL Low 11.9 - 15.1 g/dL [place] Immature granulocytes (Bld) [#/Vol] 0.04 10*3/uL [place] Immature granulocytes (Bld) [#/Vol] 0 % 0 [place] Interpretation and review of laboratory results Abnormal [place] Lymphocytes (Bld) [#/Vol] 1.62 10*3/uL [place] Lymphocytes/100 WBC (Bld) 14 % Low 24 - 43 % [place] MCH (RBC) [Entitic mass] 31.5 pg 25.2 - 33.5 pg [place] MCHC (RBC) [Mass/Vol] 31.1 g/dL 28.4 - 34.8 g/dL [place] MCV (RBC) [Entitic vol] 101.4 fL 82.6 - 102.9 fL [place] Monocytes (Bld) [#/Vol] 1.43 10*3/uL [place] Monocytes/100 WBC (Bld) 12 % 3 - 12 % [place] Platelet mean volume (Bld) [Entitic vol] 10.3 fL 8.1 - 13.5 fL [place] Platelets (Bld) [#/Vol] 245 10*3/uL [place] Platelets (Bld) [#/Vol] NOT REPORTED [place] RBC (Bld) [#/Vol] 3.52 10*6/uL Low 3.95 - 5.1 1 m/uL [place] RBC morphology finding Nom (Bld) NOT REPORTED [place] Segmented neutrophils/100 WBC (Bld) 73 % High 36 - 65 % [place] Segs Absolute 8.49 [place] WBC (Bld) [#/Vol] 0.0 10*3/uL 0.0 per 10 0 WBC [place] WBC (Bld) [#/Vol] 11.7 10*3/uL [place] WBC Morphology NOT REPORTED [place] Comprehensive Metabolic Pane riddhi 03-25-2020 Albumin [Mass/Vol] 3.3 g/dL Low 3.5 - 5.2 g/dL [place] Albumin/Globulin [Mass ratio] 1.1 {ratio} [place] ALP [Catalytic activity/Vol] 118 U/L High 35 - 104 U/L [place] ALT [Catalytic activity/Vol] 14 U/L 5 - 33 U/L [place] Anion gap [Moles/Vol] 14 mmol/L 9 - 17 mmol/L [place] AST [Catalytic activity/Vol] 15 U/L <32 [place] Bilirubin Ql (U) 0.39 mg/dL 0.3 - 1.2 mg/dL [place] Bun/Cre Ratio 17 [place] Calcium [Mass/Vol] 9.1 mg/dL 8.6 - 10. 4 mg/dL [place] Chloride [Moles/Vol] 101 mmol/L 98 - 10 7 mmol/L [place] CO2 [Moles/Vol] 27 mmol/L 20 - 31 mmol/L [place] Creatinine [Mass/Vol] 1.32 mg/dL High 0.5 - 0.9 mg/dL [place] GFR 47 mL/min Low >60 [place], [place] GFR Non- 39 mL/min Low >60 [place] Glucose [Mass/Vol] 140 mg/dL High 70 - 99 mg/dL [place] Interpretation and review of laboratory results Abnormal [place] Potassium [Moles/Vol] 3.7 mmol/L 3.7 - 5.3 mmol/L [place] Protein [Mass/Vol] 6.2 g/dL Low 6.4 - 8.3 g/dL [place] Sodium [Moles/Vol] 142 mmol/L 135 - 144 mmol/L [place] Urea nitrogen [Mass/Vol] 22 mg/dL 8 - 23 mg/dL [place] Metabolic Panelon 03-25-2020 GFR/1.73 sq M predicted among non-blacks MDRD (S/P/Bld) [Vol rate/Area] [place], [place] Comment on above: Average GFR for 70 o r more years old: 75 mL/min/1.73sq m Chronic Kidney Disease: <60 mL/min/1.73sq m Kidney failure: <15 mL/min/1.73sq m eGFR calculated using average adult body mass. Additional eGFR calculator available at: http://www.Vetr/multiple_crcl_2011.htm Stage 1: Some kidney damage normal GFR Stage 2: Mild kidney damage GFR 60-89 Stage 3: Moderate kidney damage GFR 30-59 Stage 4: Severe kidney damage GFR 15-29 Stage 5: Severe kidney damage GFR <15 ESRD - chronic treatment by dialysis or transplant APTTon 03-23-2020 aPTT Coag (Bld) [Time] 33.4 s [place] Comment on above: IV Heparin Therapy Range: 62.0-94.0 Basic Metabolic Panel w/ Ref tosha to MGon 03-23-2020 Anion gap [Moles/Vol] 16 mmol/L 9 - 17 mmol/L [place] Bun/Cre Ratio 17 [place] Calcium [Mass/Vol] 9.2 mg/dL 8.6 - 10. 4 mg/dL [place] Chloride [Moles/Vol] 99 mmol/L 98 - 10 7 mmol/L [place] CO2 [Moles/Vol] 25 mmol/L 20 - 31 mmol/L [place] Creatinine [Mass/Vol] 1.43 mg/dL High 0.5 - 0.9 mg/dL [place] GFR 43 mL/min Low >60 [place], [place] GFR Non- 35 mL/min Low >60 [place], [place] Glucose [Mass/Vol] 112 mg/dL High 70 - 99 mg/dL [place] Interpretation and review of laboratory results Abnormal [place] Potassium [Moles/Vol] 4.1 mmol/L 3.7 - 5.3 mmol/L [place] Sodium [Moles/Vol] 140 mmol/L 135 - 144 mmol/L [place] Urea nitrogen [Mass/Vol] 25 mg/dL High 8 - 23 mg/dL [place] CBC Auto Differentialon 02-26 Basophils (Bld) [#/Vol] 10*3/uL M [place] Basophils/100 WBC (Bld) 0 % 0 - 2 % [place] Differential Type NOT REPORTED [place] Eosinophils (Bld) [#/Vol] 0.12 10*3/uL [place] Eosinophils/100 WBC (Bld) 1 % 1 - 4 % [place] Erythrocyte distribution width (RBC) [Ratio] 14.5 % High 11.8 - 14.4 % [place] Hematocrit (Bld) [Volume fraction] 38.0 % 36.3 - 47.1 % [place] Hemoglobin (Bld) [Mass/Vol] 11.4 g/dL Low 11.9 - 15.1 g/dL [place] Immature granulocytes (Bld) [#/Vol] 0 % 0 [place] Immature granulocytes (Bld) [#/Vol] 0.03 10*3/uL [place] Interpretation and review of laboratory results Abnormal [place] Lymphocytes (Bld) [#/Vol] 1.80 10*3/uL [place] Lymphocytes/100 WBC (Bld) 17 % Low 24 - 43 % [place] MCH (RBC) [Entitic mass] 31.1 pg 25.2 - 33.5 pg [place] MCHC (RBC) [Mass/Vol] 30.0 g/dL 28.4 - 34.8 g/dL [place] MCV (RBC) [Entitic vol] 103.8 fL High 82.6 - 102.9 fL [place] Monocytes (Bld) [#/Vol] 1.42 10*3/uL [place] Monocytes/100 WBC (Bld) 13 % High 3 - 12 % [place] Platelet mean volume (Bld) [Entitic vol] 10.2 fL 8.1 - 13.5 fL [place] Platelets (Bld) [#/Vol] NOT REPORTED [place] Platelets (Bld) [#/Vol] 245 10*3/uL [place] RBC (Bld) [#/Vol] 3.66 10*6/uL Low 3.95 - 5.1 1 m/uL [place] RBC morphology finding Nom (Bld) NOT REPORTED [place] Segmented neutrophils/100 WBC (Bld) 69 % High 36 - 65 % [place] Segs Absolute 7.34 [place] WBC (Bld) [#/Vol] 10.7 10*3/uL [place] WBC (Bld) [#/Vol] 0.0 10*3/uL 0.0 per 10 0 WBC [place] WBC Morphology NOT REPORTED [place] COVID-19, PCRon 03-23-2020 SARS-CoV-2 [place] SARS-CoV-2, PCR [place] SARS-CoV-2, Rapid Not Detected Not Detected [place] Comment on above: Rapid NAAT: The specimen is NEGATIVE for SARS-CoV-2, the novel coronavirus associated with COVID-19. Negative results should be treated as presumptive and, if inconsistent with clinical signs and symptoms or necessary for patient management, should be tested with an alternative molecular assay. Negative results do not preclude SARS-CoV-2 infection and should not be used as the sole basis for patient management decisions. Fact sheet for Healthcare Providers: https://www.fda.gov/media/560761/download Fact sheet for Patients: https://www.fda.gov/media/605196/download Methodology: Isothermal Nucleic Acid Amplification Source .NASOPHARYNGEAL SWAB [place] Metabolic Panelon 03-23-2020 GFR/1.73 sq M predicted among non-blacks MDRD (S/P/Bld) [Vol rate/Area] [place], [place] Comment on above: Average GFR for 70 o r more years old: 75 mL/min/1.73sq m Chronic Kidney Disease: <60 mL/min/1.73sq m Kidney failure: <15 mL/min/1.73sq m eGFR calculated using average adult body mass. Additional eGFR calculator available at: http://www.[employer].Shoptimise/multiple_crcl_2012.htm Stage 1: Some kidney damage normal GFR Stage 2: Mild kidney damage GFR 60-89 Stage 3: Moderate kidney damage GFR 30-59 Stage 4: Severe kidney damage GFR 15-29 Stage 5: Severe kidney damage GFR <15 ESRD - chronic treatment by dialysis or transplant Protime-INRon 03-23-2020 INR Coag (PPP) [Relative time] 1.2 {INR} [place] Comment on above: Non-therapeutic Range: INR = 0.9-1.2 Therapeutic Range: Moderate Anticoagulant Intensity: INR = 2.0-3.0 High Anticoagulant Intensity: INR = 2.5-3.5 Interpretation and review of laboratory results Abnormal [place] PT Coag (PPP) [Time] 14.9 s [place] XR HIP 2-3 VW W PELVIS LEFTo n 03-23-2020 Erythrocyte distribution width (RBC) [Ratio] Hardware fixation of the proximal left femoral fracture without evidence for complication. Degenerative change of the SI joints and hip joints. [place], Mhpn Incoming Radiant Results From [employer] - 03/23/2020 3:40 PM EDT EXAMINATION: ONE XRAY VIEW OF THE PELVIS AND TWO XRAY VIEWS LEFT HIP 03/23/2020 3:30 pm COMPARISON: Left hip radiographs performed 02/09/2020. HISTORY: ORDERING SYSTEM PROVIDED HISTORY: fall s/p pain TECHNOLOGIST PROVIDED HISTORY: fall s/p pain FINDINGS: The bony pelvis is intact. There is hardware fixation of the proximal left femoral fracture without hardware complication. There is degenerative change of the SI joints and hip joints. The surrounding soft tissues are unremarkable. IMPRESSION: Hardware fixation of the proximal left femoral fracture without evidence for complication. Degenerative change of the SI joints and hip joints. [place] EXAMINATION: ONE XRA Y VIEW OF THE PELVIS AND TWO XRAY VIEWS LEFT HIP 03/23/2020 3:30 pm COMPARISON: Left hip radiographs performed 02/09/2020. HISTORY: ORDERING SYSTEM PROVIDED HISTORY: fall s/p pain TECHNOLOGIST PROVIDED HISTORY: fall s/p pain FINDINGS: The bony pelvis is intact. There is hardware fixation of the proximal left femoral fracture without hardware complication. There is degenerative change of the SI joints and hip joints. The surrounding soft tissues are unremarkable. [facility] [place] CBC Auto Differentialon 02-25 Basophils (Bld) [#/Vol] 10*3/uL [place] Basophils/100 WBC (Bld) 0 % 0 - 2 % [place] Differential Type NOT REPORTED [place] Eosinophils (Bld) [#/Vol] 0.25 10*3/uL [place] Eosinophils/100 WBC (Bld) 5 % High 1 - 4 % [place] Erythrocyte distribution width (RBC) [Ratio] 16.0 % High 11.8 - 14.4 % [place] Hematocrit (Bld) [Volume fraction] 34.2 % Low 36.3 - 47.1 % [place] Hemoglobin (Bld) [Mass/Vol] 10.0 g/dL Low 11.9 - 15.1 g/dL [place] Immature granulocytes (Bld) [#/Vol] 0.03 10*3/uL [place] Immature granulocytes (Bld) [#/Vol] 1 % High 0 [place] Interpretation and review of laboratory results Abnormal [place] Lymphocytes (Bld) [#/Vol] 1.50 10*3/uL [place] Lymphocytes/100 WBC (Bld) 30 % 24 - 43 % [place] MCH (RBC) [Entitic mass] 31.2 pg 25.2 - 33.5 pg [place] MCHC (RBC) [Mass/Vol] 29.2 g/dL 28.4 - 34.8 g/dL [place] MCV (RBC) [Entitic vol] 106.5 fL High 82.6 - 102.9 fL [place] Monocytes (Bld) [#/Vol] 0.70 10*3/uL [place] Monocytes/100 WBC (Bld) 14 % High 3 - 12 % M [place] Platelet mean volume (Bld) [Entitic vol] 10.2 fL 8.1 - 13.5 fL [place] Platelets (Bld) [#/Vol] NOT REPORTED [place] Platelets (Bld) [#/Vol] 311 10*3/uL [place] RBC (Bld) [#/Vol] 3.21 10*6/uL Low 3.95 - 5.1 1 m/uL [place] RBC morphology finding Nom (Bld) NOT REPORTED [place] Segmented neutrophils/100 WBC (Bld) 50 % 36 - 65 % [place] Segs Absolute 2.44 [place] WBC (Bld) [#/Vol] 0.0 10*3/uL 0.0 per 10 0 WBC [place] WBC (Bld) [#/Vol] 4.9 10*3/uL [place] WBC Morphology NOT REPORTED [place] Comprehensive Metabolic Pane riddhi 03-12-2020 Albumin [Mass/Vol] 3.3 g/dL Low 3.5 - 5.2 g/dL [place] Albumin/Globulin [Mass ratio] 1.6 {ratio} [place] ALP [Catalytic activity/Vol] 124 U/L High 35 - 104 U/L [place] ALT [Catalytic activity/Vol] 18 U/L 5 - 33 U/L [place] Anion gap [Moles/Vol] 14 mmol/L 9 - 17 mmol/L [place] AST [Catalytic activity/Vol] 20 U/L <32 [place] Bilirubin Ql (U) 0.19 mg/dL Low 0.3 - 1.2 mg/dL [place] Bun/Cre Ratio 20 [place] Calcium [Mass/Vol] 8.6 mg/dL 8.6 - 10. 4 mg/dL [place] Chloride [Moles/Vol] 106 mmol/L 98 - 10 7 mmol/L [place] CO2 [Moles/Vol] 24 mmol/L 20 - 31 mmol/L [place] Creatinine [Mass/Vol] 1.5 mg/dL High 0.5 - 0.9 mg/dL [place] GFR 40 mL/min Low >60 [place], [place] GFR Non- 33 mL/min Low >60 [place] Glucose [Mass/Vol] 78 mg/dL 70 - 99 mg/dL [place] Interpretation and review of laboratory results Abnormal [place] Potassium [Moles/Vol] 4.3 mmol/L 3.7 - 5.3 mmol/L [place] Protein [Mass/Vol] 5.4 g/dL Low 6.4 - 8.3 g/dL [place] Sodium [Moles/Vol] 144 mmol/L 135 - 144 mmol/L [place] Urea nitrogen [Mass/Vol] 30 mg/dL High 8 - 23 mg/dL [place] Metabolic Panelon 03-12-2020 GFR/1.73 sq M predicted among non-blacks MDRD (S/P/Bld) [Vol rate/Area] [place], [place] Comment on above: Stage 1: Some kidney damage normal GFR Stage 2: Mild kidney damage GFR 60-89 Stage 3: Moderate kidney damage GFR 30-59 Stage 4: Severe kidney damage GFR 15-29 Stage 5: Severe kidney damage GFR <15 ESRD - chronic treatment by dialysis or transplant Average GFR for 70 o r more years old: 75 mL/min/1.73sq m Chronic Kidney Disease: <60 mL/min/1.73sq m Kidney failure: <15 mL/min/1.73sq m eGFR calculated using average adult body mass. Additional eGFR calculator available at: http://www.Vetr/multiple_crcl_2012.htm CBC Auto Differentialon Basophils (Bld) [#/Vol] 10*3/uL M [place] Basophils/100 WBC (Bld) 0 % 0 - 2 % [place] Differential Type NOT REPORTED [place] Eosinophils (Bld) [#/Vol] 0.25 10*3/uL [place] Eosinophils/100 WBC (Bld) 4 % 1 - 4 % [place] Erythrocyte distribution width (RBC) [Ratio] 17.5 % High 11.8 - 14.4 % [place] Hematocrit (Bld) [Volume fraction] 33.4 % Low 36.3 - 47.1 % [place] Hemoglobin (Bld) [Mass/Vol] 10.0 g/dL Low 11.9 - 15.1 g/dL [place] Immature granulocytes (Bld) [#/Vol] 0.03 10*3/uL [place] Immature granulocytes (Bld) [#/Vol] 1 % High 0 [place] Interpretation and review of laboratory results Abnormal [place] Lymphocytes (Bld) [#/Vol] 1.40 10*3/uL [place] Lymphocytes/100 WBC (Bld) 23 % Low 24 - 43 % [place] MCH (RBC) [Entitic mass] 31.1 pg 25.2 - 33.5 pg [place] MCHC (RBC) [Mass/Vol] 29.9 g/dL 28.4 - 34.8 g/dL [place] MCV (RBC) [Entitic vol] 103.7 fL High 82.6 - 102.9 fL [place] Monocytes (Bld) [#/Vol] 0.58 10*3/uL [place] Monocytes/100 WBC (Bld) 9 % 3 - 12 % [place] Platelet mean volume (Bld) [Entitic vol] 9.6 fL 8.1 - 13.5 fL [place] Platelets (Bld) [#/Vol] NOT REPORTED [place] Platelets (Bld) [#/Vol] 403 10*3/uL [place] RBC (Bld) [#/Vol] 3.22 10*6/uL Low 3.95 - 5.1 1 m/uL [place] RBC morphology finding Nom (Bld) NOT REPORTED [place] Segmented neutrophils/100 WBC (Bld) 63 % 36 - 65 % [place] Segs Absolute 3.89 [place] WBC (Bld) [#/Vol] 0.0 10*3/uL 0.0 per 10 0 WBC [place] WBC (Bld) [#/Vol] 6.2 10*3/uL [place] WBC Morphology NOT REPORTED [place] Comprehensive Metabolic Pane riddhi 02-27-2020 Albumin [Mass/Vol] 3.3 g/dL Low 3.5 - 5.2 g/dL [place] Albumin/Globulin [Mass ratio] 1.3 {ratio} [place] ALP [Catalytic activity/Vol] 145 U/L High 35 - 104 U/L [place] ALT [Catalytic activity/Vol] 40 U/L High 5 - 33 U/L [place] Anion gap [Moles/Vol] 11 mmol/L 9 - 17 mmol/L [place] AST [Catalytic activity/Vol] 34 U/L High <32 [place] Bilirubin Ql (U) 0.39 mg/dL 0.3 - 1.2 mg/dL [place] Bun/Cre Ratio 21 [place] Calcium [Mass/Vol] 8.8 mg/dL 8.6 - 10. 4 mg/dL [place] Chloride [Moles/Vol] 107 mmol/L 98 - 10 7 mmol/L [place] CO2 [Moles/Vol] 24 mmol/L 20 - 31 mmol/L [place] Creatinine [Mass/Vol] 1.32 mg/dL High 0.5 - 0.9 mg/dL [place] GFR 47 mL/min Low >60 [place], [place] GFR Non- 39 mL/min Low >60 [place] Glucose [Mass/Vol] 103 mg/dL High 70 - 99 mg/dL [place] Interpretation and review of laboratory results Abnormal [place] Potassium [Moles/Vol] 3.8 mmol/L 3.7 - 5.3 mmol/L [place] Protein [Mass/Vol] 5.9 g/dL Low 6.4 - 8.3 g/dL [place] Sodium [Moles/Vol] 142 mmol/L 135 - 144 mmol/L [place] Urea nitrogen [Mass/Vol] 28 mg/dL High 8 - 23 mg/dL [place] Metabolic Panelon 02-27-2020 GFR/1.73 sq M predicted among non-blacks MDRD (S/P/Bld) [Vol rate/Area] [place] Comment on above: Stage 1: Some kidney damage normal GFR Stage 2: Mild kidney damage GFR 60-89 Stage 3: Moderate kidney damage GFR 30-59 Stage 4: Severe kidney damage GFR 15-29 Stage 5: Severe kidney damage GFR <15 ESRD - chronic treatment by dialysis or transplant Average GFR for 70 o r more years old: 75 mL/min/1.73sq m Chronic Kidney Disease: <60 mL/min/1.73sq m Kidney failure: <15 mL/min/1.73sq m eGFR calculated using average adult body mass. Additional eGFR calculator available at: http://www.Vetr/multiple_crcl_2012.htm CBC Auto Differentialon 01-26 Basophils (Bld) [#/Vol] 10*3/uL [place] Basophils/100 WBC (Bld) 0 % 0 - 2 % [place] Differential Type NOT REPORTED [place] Eosinophils (Bld) [#/Vol] 0.33 10*3/uL [place] Eosinophils/100 WBC (Bld) 4 % 1 - 4 % [place] Erythrocyte distribution width (RBC) [Ratio] 16.7 % High 11.8 - 14.4 % [place] Hematocrit (Bld) [Volume fraction] 31.9 % Low 36.3 - 47.1 % [place] Hemoglobin (Bld) [Mass/Vol] 9.7 g/dL Low 11.9 - 15.1 g/dL [place] Immature granulocytes (Bld) [#/Vol] 0.20 10*3/uL [place] Immature granulocytes (Bld) [#/Vol] 2 % High 0 [place] Interpretation and review of laboratory results Abnormal [place] Lymphocytes (Bld) [#/Vol] 2.08 10*3/uL [place] Lymphocytes/100 WBC (Bld) 23 % Low 24 - 43 % [place] MCH (RBC) [Entitic mass] 30.8 pg 25.2 - 33.5 pg [place] MCHC (RBC) [Mass/Vol] 30.4 g/dL 28.4 - 34.8 g/dL [place] MCV (RBC) [Entitic vol] 101.3 fL 82.6 - 102.9 fL [place] Monocytes (Bld) [#/Vol] 1.09 10*3/uL [place] Monocytes/100 WBC (Bld) 12 % 3 - 12 % [place] Platelet mean volume (Bld) [Entitic vol] 9.8 fL 8.1 - 13.5 fL [place] Platelets (Bld) [#/Vol] NOT REPORTED [place] Platelets (Bld) [#/Vol] 468 10*3/uL [place] RBC (Bld) [#/Vol] 3.15 10*6/uL Low 3.95 - 5.1 1 m/uL [place] RBC morphology finding Nom (Bld) NOT REPORTED [place] Segmented neutrophils/100 WBC (Bld) 59 % 36 - 65 % [place] Segs Absolute 5.43 [place] WBC (Bld) [#/Vol] 0.0 10*3/uL 0.0 per 10 0 WBC [place] WBC (Bld) [#/Vol] 9.2 10*3/uL [place] WBC Morphology NOT REPORTED [place] Comprehensive Metabolic Pane riddhi 02-20-2020 Albumin [Mass/Vol] 3.3 g/dL Low 3.5 - 5.2 g/dL [place] Albumin/Globulin [Mass ratio] 1.2 {ratio} [place] ALP [Catalytic activity/Vol] 158 U/L High 35 - 104 U/L [place] ALT [Catalytic activity/Vol] 101 U/L High 5 - 33 U/L [place] Anion gap [Moles/Vol] 15 mmol/L 9 - 17 mmol/L [place] AST [Catalytic activity/Vol] 100 U/L High <32 [place] Bilirubin Ql (U) 0.43 mg/dL 0.3 - 1.2 mg/dL [place] Bun/Cre Ratio 23 [place] Calcium [Mass/Vol] 8.6 mg/dL 8.6 - 10. 4 mg/dL [place] Chloride [Moles/Vol] 102 mmol/L 98 - 10 7 mmol/L [place] CO2 [Moles/Vol] 22 mmol/L 20 - 31 mmol/L [place] Creatinine [Mass/Vol] 1.46 mg/dL High 0.5 - 0.9 mg/dL [place] GFR 42 mL/min Low >60 [place] GFR Non- 34 mL/min Low >60 [place] Glucose [Mass/Vol] 98 mg/dL 70 - 99 mg/dL [place] Interpretation and review of laboratory results Abnormal [place] Potassium [Moles/Vol] 3.6 mmol/L Low 3.7 - 5.3 mmol/L [place] Protein [Mass/Vol] 6.0 g/dL Low 6.4 - 8.3 g/dL [place] Sodium [Moles/Vol] 139 mmol/L 135 - 144 mmol/L [place] Urea nitrogen [Mass/Vol] 33 mg/dL High 8 - 23 mg/dL [place] Metabolic Panelon 02-20-2020 GFR/1.73 sq M predicted among non-blacks MDRD (S/P/Bld) [Vol rate/Area] [place] Comment on above: Stage 1: Some kidney damage normal GFR Stage 2: Mild kidney damage GFR 60-89 Stage 3: Moderate kidney damage GFR 30-59 Stage 4: Severe kidney damage GFR 15-29 Stage 5: Severe kidney damage GFR <15 ESRD - chronic treatment by dialysis or transplant Average GFR for 70 o r more years old: 75 mL/min/1.73sq m Chronic Kidney Disease: <60 mL/min/1.73sq m Kidney failure: <15 mL/min/1.73sq m eGFR calculated using average adult body mass. Additional eGFR calculator available at: http://www.[employer].Shoptimise/multiple_crcl_2012.htm Danna Bobo 02-17-2020 Danna Gallardo -- - Final No growth at 5 days. Normal [facility] Comment on above: Performed By: #### E GFR #### [place] [id number] C Bld Blood cultures x 2 - Final No growth at 5 days. Normal [facility] Comment on above: Performed By: #### F OL #### [address] [id number] .eGFRon 02-15-2020 eGFR AA 40 mL/min/1.73m? Low >=60 [facility] Comment on above: Result Comment: Resu lt = 0-14.9 mL/min/1.73 m2 Kidney failure or Dialysis Result = 15-29 mL/min/1.73 m2 Severe decrease in GFR Result = 30-59 mL/min/1.73 m2 Moderate decrease in GFR Result >= 60 mL/min/1.73 m2 Normal or increased GFR Performed By: #### T IBC #### [address] [id number] eGFR Non-AA 33 mL/min/1.73m? Low >=60 [facility] Comment on above: Result Comment: Resu lt = 0-14.9 mL/min/1.73 m2 Kidney failure or Dialysis Result = 15-29 mL/min/1.73 m2 Severe decrease in GFR Result = 30-59 mL/min/1.73 m2 Moderate decrease in GFR Result >= 60 mL/min/1.73 m2 Normal or increased GFR Chronic kidney disease is defined as either kidney damage or GFR < 60 mL/min/1.73 m2 for >= 3 months. Kidney damage is defined as pathologic abnormalities or markers of damage including abnormalities in blood or urine tests or imaging studies. This GFR is NOT used for medication dosing. Performed By: #### T IBC #### [address] [address] [facility]Con 02-15-2020 Erythrocyte distribution width (RBC) [Ratio] 14.7 % Normal 11.6-14.8 [facility] Comment on above: Performed By: #### F OL #### [place] [id number] Hematocrit (Bld) [Volume fraction] 28.4 % Low 36.0-46.0 [facility] Comment on above: Performed By: #### F OL #### [place] [id number] Hemoglobin (Bld) [Mass/Vol] 9.3 g/dL Low 12.0-16.0 [facility] Comment on above: Performed By: #### F OL #### [place] [id number] MCH (RBC) [Entitic mass] 30.7 pg Normal 27.0-35.0 [facility] [facility] Comment on above: Performed By: #### F OL #### [place] [id number] MCHC (RBC) [Mass/Vol] 32.8 % Normal 31.0-37.0 [facility] Comment on above: Performed By: #### F OL #### [address] [address] MCV (RBC) [Entitic vol] 93.4 fL Normal 80.0-100.0 [facility] [place] Comment on above: Performed By: #### F OL #### [address] [address] Platelet mean volume (Bld) [Entitic vol] 8.4 fL Normal 6.7-10.6 [facility] Comment on above: Performed By: #### F OL #### [place] [id number] Platelets (Bld) [#/Vol] 246 x10*3/mcL Normal 150-350 [facility] Comment on above: Performed By: #### F OL #### [address] [address] RBC (Bld) [#/Vol] 3.04 x10*6/mcL Low 3.80-5.20 [facility] Comment on above: Performed By: #### F OL #### [address] [address] WBC (Bld) [#/Vol] 8.2 x10*3/mcL Normal 4.5-11.0 [facility] Comment on above: Performed By: #### F OL #### [address] [address] Magnesiumon 02-15-2020 Magnesium [Mass/Vol] 2.1 mg/dL Normal 1.7-2.4 [facility] Comment on above: Performed By: #### T IBC #### [address] [address] Nephrology Progress Noteon 0 02-15-2020 Nephrology Progress Note Subjective Patient is seen and evaluated on the 6th floor , no family present. Significantly improved mentation today. She is up in chair, states feeling well. Denies chest pain, SOB, nausea, vomiting, fever or chills. Review of Systems As above, all other systems have been reviewed and are negative for complaint. Objective Vitals & Measurements T: 36.5 ?C (Axillary) T: 37.1 ?C (Oral) T: 37.5 ?C (Skin) HR: 76 (Monitored) RR: 16 BP: 111/65 SpO2: 94% HT: 157 cm WT: 72.3 kg DOSE WT: 68 kg Additional Vitals Peripheral Pulse Rate: 73 bpm Lab Results Microbiology No qualifying data available. Last 24 Hours Basic Metabolic Panel: Hematology: Sodium Lvl: 139 (02/15/20) Hgb: 9.3 (02/15/20) Potassium Lvl: 4.4 (02/15/20) Hgb A1c: ------ Phosphorus: 3.4 (02/15/20) WBC: 8.2 (02/15/20) Magnesium Lvl: 2.1 (02/15/20) Platelet: 246 (02/15/20) BUN: 26 (02/15/20) INR POC: ------ Creatinine Lvl: 1.51 (02/15/20) Creatinine Clearance: ------ Additional - Last 24 Hours Albumin Lvl: 3.0 (02/15/20) Anion Gap: 15 (02/15/20) BUN Crea Ratio: 17.2 (02/15/20) Calcium Lvl: 8.2 (02/15/20) Chloride: 103 (02/15/20) CO2: 25 (02/15/20) eGFR AA: 40 (02/15/20) eGFR Non-AA: 33 (02/15/20) Glucose Lvl: 105 (02/15/20) Hct: 28.4 (02/15/20) MCH: 30.7 (02/15/20) MCHC: 32.8 (02/15/20) MCV: 93.4 (02/15/20) Mean Platelet Volume: 8.4 (02/15/20) RBC: 3.04 (02/15/20) RDW: 14.7 (02/15/20) Diagnostic Results Diagnostic Radiology XR Chest 1 View 02/12/20 12:01:43 Impression: Stable chest without radiographic evidence of acute pulmonary process. Signed By: Manolo KUMAR, [facility] Computed Tomography No qualifying data available. Ultrasound No qualifying data available. Magnetic Resonance Imaging No qualifying data available. Nuclear Medicine No qualifying data available. Physical Exam Lungs: [Clear, non-labored respiration]. Heart: [Normal rate, regular rhythm, no edema]. Abdomen: [Soft, non-tender, non-distended, normal bowel sounds]. Mental Status:[Alert and oriented x3]. Medications Inpatient acetaminophen, 650 mg, Oral, q6hr, PRN acetaminophen, 1000 mg, Oral, [id number] Times ALPRAZolam, 0.25 mg, Oral, HS (at bedtime) calcitriol, 0.25 mcg, Oral, Mo// Dulcolax Laxative, 10 mg, Oral, Daily, PRN Haldol, 2.5 mg, 0.5 mL, IM, [id number] Times, PRN hydrALAZINE, 25 mg, Oral, TID Lovenox, 30 mg, 0.3 mL, Subcutaneous, q24hr meclizine, 25 mg, Oral, TID, PRN MiraLax, 17 g, 1 EA, Oral, Daily naloxone, 0.4 mg, 1 mL, IV Push, q2min, PRN [place] 5 mg-325 mg oral tablet, 1 tabs, Oral, q6hr, PRN Normal Saline Flush 0.9% injectable solution, 10 mL, IV Push, BID Normal Saline Flush 0.9% injectable solution, 10 mL, IV Push, As Indicated, PRN ondansetron, 4 mg, 2 mL, IV Push, q4hr, PRN pravastatin, 10 mg, Oral, HS (at bedtime) senna, 17.2 mg, Oral, BID SEROquel, 25 mg, Oral, BID Venofer verapamil 12 hour extended release, 180 mg, Oral, HS (at bedtime) Vitamin B12 with Folic Acid and Iron oral capsule, 1 caps, Oral, Daily Assessment/Plan 1. Chronic kidney disease Resolved admission [facility] secondary to renal hypoperfusion, with baseline CKD stage IV. Optimized anemia with Venofer ?4 doses Continues on hydralazine 25 mg 3 times a day And her verapamil 180 mg PO at HS. Continue to avoid NSAIDs and nephrotoxic medications. 2. Electrolyte abnormality Electrolyte abnormalities resolved post supplementation, within acceptable limits today. 3. 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 Intact PTH level of 94. Calcitriol of 0.25 mcg on MWF. 4. 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 Continue with hydralazine 25 mg TID and verapamil 180 mg at bedtime. 5. Status post hip surgery Admission intertrochanteric fracture of the left hip with surgical intervention by Dr. Jordan on 02/09 Discharged to [facility] for rehab post surgery. 6. Intertrochanteric fracture of left hip 7. Anemia, Normocytic normochromic with admission hgb of 12.4. Iron panel obtained, iron saturation-7.6, ferritin- 75.8, B12-135, folate-4. Optimized with IV Venofer 200 mg IVPB x 4 doses and multivitamin. Hemoglobin stable 8. Acute delirium Resolving with the addition of Seroquel twice a day per hospitalist. 9. Hyperlipidemia 10. Hearing loss sensory, bilateral Discharge planning to [facility]. Follow-up with Dr. Chew on discharge. Electronically signed by Stephanie Chau 02/15/20 15:03 EDT The patient was personally evaluated by myself and the case was discussed with Stephanie Mendoza CNP. I agree with the above noted assessment and plans. Patient has continued to do well with stable advanced kidney disease as well as hypertension management. Follow-up in the clinic several weeks from now Electronically signed by Jeevan NIELSON Herberthdavid Hadley 02/15/20 23:31 EDT [facility] Progress Note-Nurseon 2019 Progress Note-Nurse Nurse Joanna called [facility] to give report regarding the discharge. Nurse to spoke to Brody. Nurse reported that she does not have ETA on discharge yet but will contact once the patient leaves. Nurse reported the last vitals to [facility]. Nurse explained that the patient came in due to a fall and had a left IM Nailing on the 16. Nurse reported that she has two silver mepilex's on the hip. Nurse explained that the areas should not be Immerged in water. Nurse reported that the patient does have occasional hallucinations. Nurse reported that the last bowel movement was today. Nurse gave the daughter's phone number and the spouse's phone number. Nurse explained that the bruising and skin tears. Electronically signed by Joanna Lai 02/15/20 13:31 EDT [facility] Provider Letteron 02-15-2020 Provider Letter Justino Dhaliwal DO [address] [place] [id number] Re: Meenu Nolan Date of Visit: 02/09/2020 Dear Justino Dhaliwal, I had the pleasure of taking care of your patient in the hospital. I have included my documentation for your review. Please let me know if you have any questions or concerns. Sincerely, Valerie Mota, [employer] C C Providers: The following document(s) were included in the letter: February 15, 2020 10:09:39 EDT - (02/15/2020) Hospitalist Discharge Summary Note [facility] Renal Panelon 02-15-2020 Albumin [Mass/Vol] 3.0 g/dL Low 3.2-4.9 [facility] Comment on above: Result Comment: [facility] Laboratory updated the methodology used for albumin testing on 05/04/18. Albumin measurement was performed using a bromcresol purple dye-binding assay. Performed By: #### E GFR #### [address] [address] Anion gap [Moles/Vol] 15 mmol/L Normal 7-17 [facility] Comment on above: Performed By: #### E GFR #### [address] [address] Calcium [Mass/Vol] 8.2 mg/dL Low 8.5-10.3 [facility] Comment on above: Performed By: #### E GFR #### [address] [address] Chloride [Moles/Vol] 103 mmol/L Normal 98-110 [facility] Comment on above: Performed By: #### E GFR #### [address] [address] CO2 [Moles/Vol] 25 mmol/L Normal 22-32 [facility] Comment on above: Performed By: #### E GFR #### [address] [address] Creatinine [Mass/Vol] 1.51 mg/dL High 0.44-1.03 [facility] Comment on above: Performed By: #### E GFR #### [address] [address] Glucose [Mass/Vol] 105 mg/dL High 70-99 [facility] Comment on above: Performed By: #### E GFR #### [address] [address] Phosphate [Mass/Vol] 3.4 mg/dL Normal 2.5-4.6 [facility] Comment on above: Performed By: #### E GFR #### [address] [address] Potassium [Moles/Vol] 4.4 mmol/L Normal 3.4-4.8 [facility] Comment on above: Performed By: #### E GFR #### [address] [address] Sodium [Moles/Vol] 139 mmol/L Normal 133-142 [facility] Comment on above: Performed By: #### E GFR #### [address] [address] Urea nitrogen [Mass/Vol] 26 mg/dL Normal 8-26 [facility] Comment on above: Performed By: #### E GFR #### [address] [address] Urea nitrogen/Creatinine [Mass ratio] 17.2 mg/mg Normal 10.0-20.0 [facility] Comment on above: Performed By: #### E GFR #### [address] [address] [id number] RNA PCR Send O ut 02-15-2020 [id number] RNA by PCR Not Detected Normal Not Detected [facility] Comment on above: Order Comment: utmcf or nh placement in a couple days Result Comment: Miss ing Attachment Chartable Reference Lab Reports Can be viewed in source system Performed By: #### E GFR #### [address] [address] .eGFRon 02-14-2020 eGFR Non-AA 37 mL/min/1.73m? Low >=60 [facility] Comment on above: Result Comment: Resu lt = 0-14.9 mL/min/1.73 m2 Kidney failure or Dialysis Result = 15-29 mL/min/1.73 m2 Severe decrease in GFR Result = 30-59 mL/min/1.73 m2 Moderate decrease in GFR Result >= 60 mL/min/1.73 m2 Normal or increased GFR Chronic kidney disease is defined as either kidney damage or GFR < 60 mL/min/1.73 m2 for >= 3 months. Kidney damage is defined as pathologic abnormalities or markers of damage including abnormalities in blood or urine tests or imaging studies. This GFR is NOT used for medication dosing. Performed By: #### E GFR #### [address] [address] eGFR AA 45 mL/min/1.73m? Low >=60 [facility] Comment on above: Result Comment: Resu lt = 0-14.9 mL/min/1.73 m2 Kidney failure or Dialysis Result = 15-29 mL/min/1.73 m2 Severe decrease in GFR Result = 30-59 mL/min/1.73 m2 Moderate decrease in GFR Result >= 60 mL/min/1.73 m2 Normal or increased GFR Performed By: #### E GFR #### [address] [address] CBCon 02-14-2020 Erythrocyte distribution width (RBC) [Ratio] 14.5 % Normal 11.6-14.8 [facility] Comment on above: Performed By: #### T IBC #### [address] [address] Hematocrit (Bld) [Volume fraction] 26.8 % Low 36.0-46.0 [facility] Comment on above: Performed By: #### T IBC #### [address] [address] Hemoglobin (Bld) [Mass/Vol] 8.8 g/dL Low 12.0-16.0 [facility] Comment on above: Performed By: #### T IBC #### [address] [address] MCH (RBC) [Entitic mass] 30.6 pg Normal 27.0-35.0 [facility] Comment on above: Performed By: #### T IBC #### [address] [address] MCHC (RBC) [Mass/Vol] 33.0 % Normal 31.0-37.0 [facility] Comment on above: Performed By: #### T IBC #### [address] [address] MCV (RBC) [Entitic vol] 92.8 fL Normal 80.0-100.0 [facility] Comment on above: Performed By: #### T IBC #### [address] [address] Platelet mean volume (Bld) [Entitic vol] 8.7 fL Normal 6.7-10.6 [facility] Comment on above: Performed By: #### T IBC #### [address] [address] Platelets (Bld) [#/Vol] 190 x10*3/mcL Normal 150-350 [facility] Comment on above: Performed By: #### T IBC #### [address] [address] RBC (Bld) [#/Vol] 2.89 x10*6/mcL Low 3.80-5.20 [facility] Comment on above: Performed By: #### T IBC #### [address] [address] WBC (Bld) [#/Vol] 8.6 x10*3/mcL Normal 4.5-11.0 [facility] Comment on above: Performed By: #### T IBC #### [address] [address] Magnesiumon 02-14-2020 Magnesium [Mass/Vol] 2.2 mg/dL Normal 1.7-2.4 [facility] Comment on above: Performed By: #### [facility] #### [facility] [address] [place] [address] Nephrology Progress Noteon 0 02-14-2020 Nephrology Progress Note Subjective Patient is seen and evaluated on the 6th floor , no family present. She continues with delirium today, she does recognize Dr. Chew and will allow him to assess her. Hospitalist adjusted medications yesterday with Haldol and Seroquel. Denies chest pain, SOB, nausea, vomiting, fever or chills. Review of Systems As above, all other systems have been reviewed and are negative for complaint. Objective Vitals & Measurements T: 37.2 ?C (Axillary) T: 37 ?C (Oral) T: 37.5 ?C (Skin) HR: 76 (Monitored) RR: 18 BP: 119/69 SpO2: 97% HT: 157 cm WT: 68.2 kg DOSE WT: 68 kg Additional Vitals Peripheral Pulse Rate: 76 bpm Lab Results Microbiology No qualifying data available. Last 24 Hours Basic Metabolic Panel: Hematology: Sodium Lvl: 138 (02/14/20) Hgb: 8.8 (02/14/20) Potassium Lvl: 3.9 (02/14/20) Hgb A1c: ------ Phosphorus: 2.0 (02/14/20) WBC: 8.6 (02/14/20) Magnesium Lvl: 2.2 (02/14/20) Platelet: 190 (02/14/20) BUN: 20 (02/14/20) INR POC: ------ Creatinine Lvl: 1.37 (02/14/20) Creatinine Clearance: ------ Additional - Last 24 Hours Albumin Lvl: 2.9 (02/14/20) Anion Gap: 14 (02/14/20) BUN Crea Ratio: 14.6 (02/14/20) Calcium Lvl: 8.1 (02/14/20) Chloride: 103 (02/14/20) CO2: 25 (02/14/20) eGFR AA: 45 (02/14/20) eGFR Non-AA: 37 (02/14/20) Glucose Lvl: 115 (02/14/20) Hct: 26.8 (02/14/20) MCH: 30.6 (02/14/20) MCHC: 33.0 (02/14/20) MCV: 92.8 (02/14/20) Mean Platelet Volume: 8.7 (02/14/20) RBC: 2.89 (02/14/20) RDW: 14.5 (02/14/20) Diagnostic Results Diagnostic Radiology XR Chest 1 View 02/12/20 12:01:43 Impression: Stable chest without radiographic evidence of acute pulmonary process. Signed By: Manolo KUMAR, [facility] Computed Tomography No qualifying data available. Ultrasound No qualifying data available. Magnetic Resonance Imaging No qualifying data available. Nuclear Medicine No qualifying data available. Physical Exam Lungs: [Clear, non-labored respiration]. Heart: [Normal rate, regular rhythm, no edema]. Abdomen: [Soft, non-tender, non-distended, normal bowel sounds]. Mental Status:[Alert and oriented x1, delirium sl improved Medications Inpatient acetaminophen, 650 mg, Oral, q6hr, PRN acetaminophen, 1000 mg, Oral, [id number] Times ALPRAZolam, 0.25 mg, Oral, HS (at bedtime) calcitriol, 0.25 mcg, Oral, Mo// Dulcolax Laxative, 10 mg, Oral, Daily, PRN Haldol, 2.5 mg, 0.5 mL, IM, [id number] Times, PRN hydrALAZINE, 25 mg, Oral, TID Lovenox, 30 mg, 0.3 mL, Subcutaneous, q24hr meclizine, 25 mg, Oral, TID, PRN naloxone, 0.4 mg, 1 mL, IV Push, q2min, PRN [place] 5 mg-325 mg oral tablet, 1 tabs, Oral, q6hr, PRN Normal Saline Flush 0.9% injectable solution, 10 mL, IV Push, BID Normal Saline Flush 0.9% injectable solution, 10 mL, IV Push, As Indicated, PRN ondansetron, 4 mg, 2 mL, IV Push, q4hr, PRN potassium phosphate pravastatin, 10 mg, Oral, HS (at bedtime) SEROquel, 25 mg, Oral, BID Venofer verapamil 12 hour extended release, 180 mg, Oral, HS (at bedtime) Vitamin B12 with Folic Acid and Iron oral capsule, 1 caps, Oral, Daily Assessment/Plan 1. Chronic kidney disease Admission [facility] secondary to renal hypoperfusion, with baseline CKD stage IV. Post treatment with infusion of 2 L of IV fluid, hypertension management, and avoidance of nephrotoxic medications. Continues with post op delirium with slight improvement, continues on Haldol PRN and Seroquel Twice a day Preliminary blood cultures negative, urinalysis benign. 2. Electrolyte abnormality Electrolyte abnormalities with Hypophosphatemia, optimize with K-Phos 30 mmol Continue Monitor electrolyte metabolic panel and treat when indicated. 3. 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 Intact PTH level of 94. Calcitriol of 0.25 mcg on MWF. 4. 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 Adjustment home meds, presently on hydralazine 25 mg TID and verapamil 180 mg at bedtime. Continue to hold off on use of ARLETTE inhibitors or ARB medications at this time. Blood pressure well controlled on medications as above. 5. Status post hip surgery Admission intertrochanteric fracture of the left hip with surgical intervention by Dr. Jordan on 02/09 6. Intertrochanteric fracture of left hip 7. Anemia, Normocytic normochromic with admission hgb of 12.4. Iron panel obtained, iron saturation-7.6, ferritin- 75.8, B12-135, folate-4. Optimizing with IV Venofer 200 mg IVPB x 4 doses and multivitamin. Continue to monitor CBC, goal hgb > 8.0 for end organ perfusion. Hemoglobin stable 8. Acute delirium Hospitalist managing with when necessary Haldol and Seroquel twice a day. 9. Hyperlipidemia 10. Hearing loss sensory, bilateral Possible discharge to [facility] testing pending. Follow-up with Dr. Chew on discharge. Electronically signed by Stephanie Chau 02/14/20 17:34 EDT The patient was personally evaluated by myself and the case was discussed with Stephanie Mendoza CNP. I agree with the above noted assessment and plans formulated by myself and discussed with the nurse practitioner. Improved renal function post intertrochanteric fracture surgery. Continue present treatment for iron deficiency anemia, as well as management of hypertension with use of hydralazine. Electronically signed by Dilan Chew DO 02/14/20 22:40 EDT [facility] Orthopedic Progress Noteon 0 02-14-2020 Orthopedic Progress Note Subjective Patient was very pleasant and actually alert and oriented. She knew exactly why she was in the hospital at this time and states that her hip is feeling better but still sore. She denies fevers or chills. Objective Vitals & Measurements T: 36.5 ?C (Axillary) T: 36.5 ?C (Oral) T: 37.5 ?C (Skin) HR: 76 (Monitored) RR: 16 BP: 99/62 SpO2: 96% HT: 157 cm WT: 71.1 kg DOSE WT: 68 kg Additional Vitals Peripheral Pulse Rate: 72 bpm Lab Results Microbiology No qualifying data available. Diagnostic Results Diagnostic Radiology XR Chest 1 View 02/12/20 12:01:43 Impression: Stable chest without radiographic evidence of acute pulmonary process. Signed By: Manolo KUMAR, [facility] Computed Tomography No qualifying data available. Ultrasound No qualifying data available. Magnetic Resonance Imaging No qualifying data available. Nuclear Medicine No qualifying data available. Physical Exam Patient was actually alert and oriented through the entirety of the office visit which she had not been previous visits. She has clean dressings that are dry and intact. No erythema or warmth. No palpable cords or calf tenderness. Palpable pulse distally. Brisk capillary refill. Good ankle and toe range of motion without pain. The thigh is soft and nontender. Medications Inpatient acetaminophen, 650 mg, Oral, q6hr, PRN acetaminophen, 1000 mg, Oral, [id number] Times ALPRAZolam, 0.25 mg, Oral, HS (at bedtime) calcitriol, 0.25 mcg, Oral, Mo/We/Fr Dulcolax Laxative, 10 mg, Oral, Daily, PRN Haldol, 2.5 mg, 0.5 mL, IM, [id number] Times, PRN hydrALAZINE, 25 mg, Oral, TID Lovenox, 30 mg, 0.3 mL, Subcutaneous, q24hr meclizine, 25 mg, Oral, TID, PRN MiraLax, 17 g, 1 EA, Oral, Daily naloxone, 0.4 mg, 1 mL, IV Push, q2min, PRN [place] 5 mg-325 mg oral tablet, 1 tabs, Oral, q6hr, PRN Normal Saline Flush 0.9% injectable solution, 10 mL, IV Push, BID Normal Saline Flush 0.9% injectable solution, 10 mL, IV Push, As Indicated, PRN ondansetron, 4 mg, 2 mL, IV Push, q4hr, PRN pravastatin, 10 mg, Oral, HS (at bedtime) senna, 17.2 mg, Oral, BID SEROquel, 25 mg, Oral, BID Venofer verapamil 12 hour extended release, 180 mg, Oral, HS (at bedtime) Vitamin B12 with Folic Acid and Iron oral capsule, 1 caps, Oral, Daily Assessment/Plan 1. Delirium, acute 2. Intertrochanteric fracture of left hip At this point, the patient is doing very well status post left hip intramedullary nailing. From an orthopedic standpoint it is okay to discharge the patient. Hemoglobin stable at 8.8. We will continue with therapy, DVT prophylaxis, and pain control. We will follow-up at [facility] in 2 weeks for recheck. 3. Chronic kidney disease 4. Electrolyte abnormality 5. Renal osteodystrophy 6. Hypertension 7. Status post hip surgery 8. Laceration of head 9. Hearing loss sensory, bilateral 10. Anemia Electronically signed by Naman Edmond PA-C 02/14/20 19:09 EDT [facility] Renal Panelon 02-14-2020 Albumin [Mass/Vol] 2.9 g/dL Low 3.2-4.9 [facility] Comment on above: Result Comment: [facility] Laboratory updated the methodology used for albumin testing on 05/04/18. Albumin measurement was performed using a bromcresol purple dye-binding assay. Performed By: #### E GFR #### [address] [address] Anion gap [Moles/Vol] 14 mmol/L Normal 7-17 [facility] Comment on above: Performed By: #### E GFR #### [address] [address] Calcium [Mass/Vol] 8.1 mg/dL Low 8.5-10.3 [facility] Comment on above: Performed By: #### E GFR #### [address] [address] Chloride [Moles/Vol] 103 mmol/L Normal 98-110 [facility] Comment on above: Performed By: #### E GFR #### [address] [address] CO2 [Moles/Vol] 25 mmol/L Normal 22-32 [facility] Comment on above: Performed By: #### E GFR #### [address] [address] Creatinine [Mass/Vol] 1.37 mg/dL High 0.44-1.03 [facility] Comment on above: Performed By: #### E GFR #### [address] [address] Glucose [Mass/Vol] 115 mg/dL High 70-99 [facility] Comment on above: Performed By: #### E GFR #### [address] [address] Phosphate [Mass/Vol] 2.0 mg/dL Low 2.5-4.6 [facility] Comment on above: Performed By: #### E GFR #### [address] [address] Potassium [Moles/Vol] 3.9 mmol/L Normal 3.4-4.8 [facility] Comment on above: Performed By: #### E GFR #### [place] [id number] Sodium [Moles/Vol] 138 mmol/L Normal 133-142 [facility] Comment on above: Performed By: #### E GFR #### [address] [address] Urea nitrogen [Mass/Vol] 20 mg/dL Normal 8-26 [facility] Comment on above: Performed By: #### E GFR #### [place] [id number] Urea nitrogen/Creatinine [Mass ratio] 14.6 mg/mg Normal 10.0-20.0 [facility] Comment on above: Performed By: #### E GFR #### [place] [id number] .UA Microscp Aon 02-13-2020 UA Mucus Present Abnormal Absent [facility] Comment on above: Performed By: #### C [id number] #### [address] [address] UA RBC Quant 0 /HPF Normal 0-5 [facility] Comment on above: Performed By: #### C [id number] #### [address] [address] UA WBC Quant 0 /HPF Normal 0-5 [facility] Comment on above: Performed By: #### C [id number] #### [address] [address] .eGFRon 02-13-2020 eGFR Non-AA 30 mL/min/1.73m? Low >=60 [facility] Comment on above: Order Comment: Order added by Discern rule Result Comment: Resu lt = 0-14.9 mL/min/1.73 m2 Kidney failure or Dialysis Result = 15-29 mL/min/1.73 m2 Severe decrease in GFR Result = 30-59 mL/min/1.73 m2 Moderate decrease in GFR Result >= 60 mL/min/1.73 m2 Normal or increased GFR Chronic kidney disease is defined as either kidney damage or GFR < 60 mL/min/1.73 m2 for >= 3 months. Kidney damage is defined as pathologic abnormalities or markers of damage including abnormalities in blood or urine tests or imaging studies. This GFR is NOT used for medication dosing. Performed By: #### E GFR #### [place] [id number] eGFR AA 36 mL/min/1.73m? Low >=60 [facility] Comment on above: Order Comment: Order added by Discern rule Result Comment: Resu lt = 0-14.9 mL/min/1.73 m2 Kidney failure or Dialysis Result = 15-29 mL/min/1.73 m2 Severe decrease in GFR Result = 30-59 mL/min/1.73 m2 Moderate decrease in GFR Result >= 60 mL/min/1.73 m2 Normal or increased GFR Performed By: #### E GFR #### [place] [id number] CBCon 02-13-2020 Erythrocyte distribution width (RBC) [Ratio] 14.5 % Normal 11.6-14.8 [facility] Comment on above: Performed By: #### E GFR #### [address] [address] Hematocrit (Bld) [Volume fraction] 27.6 % Low 36.0-46.0 [facility] Comment on above: Performed By: #### E GFR #### [address] [address] Hemoglobin (Bld) [Mass/Vol] 9.1 g/dL Low 12.0-16.0 [facility] Comment on above: Performed By: #### E GFR #### [address] [address] MCH (RBC) [Entitic mass] 30.7 pg Normal 27.0-35.0 [facility] Comment on above: Performed By: #### E GFR #### [address] [address] MCHC (RBC) [Mass/Vol] 32.9 % Normal 31.0-37.0 [facility] Comment on above: Performed By: #### E GFR #### [address] [address] MCV (RBC) [Entitic vol] 93.2 fL Normal 80.0-100.0 [facility] [place] Comment on above: Performed By: #### E GFR #### [address] [address] Platelet mean volume (Bld) [Entitic vol] 9.0 fL Normal 6.7-10.6 [facility] Comment on above: Performed By: #### E GFR #### [address] [address] Platelets (Bld) [#/Vol] 169 x10*3/mcL Normal 150-350 [facility] Comment on above: Performed By: #### E GFR #### [address] [address] RBC (Bld) [#/Vol] 2.96 x10*6/mcL Low 3.80-5.20 [facility] Comment on above: Performed By: #### E GFR #### [address] [address] WBC (Bld) [#/Vol] 9.8 x10*3/mcL Normal 4.5-11.0 [facility] Comment on above: Performed By: #### E GFR #### [address] [address] [employer] Progress Noteon 02-13-2020 [employer] Progress Note Second IMM letter delivered to patient. Electronically signed by Kasie Flowers 02/13/20 09:58 EDT Normal [facility] Magnesiumon 02-13-2020 Magnesium [Mass/Vol] 2.3 mg/dL Normal 1.7-2.4 [facility] Comment on above: Performed By: #### E GFR #### [facility] [address] [place] [address] Nephrology Progress Noteon 0 02-13-2020 Nephrology Progress Note Subjective Patient is seen and evaluated on the 6th floor , no family present. She is alert to name only, stating people need to get out of her place. She is agitated, stating do not touch me and get out of my room. Sitter at the bedside. Review of Systems Patient agitated and not answering questions. Objective Vitals & Measurements T: 36.4 ?C (Axillary) T: 36.9 ?C (Oral) T: 37.5 ?C (Skin) HR: 76 (Monitored) RR: 16 BP: 129/70 SpO2: 95% HT: 157 cm WT: 68.2 kg DOSE WT: 68 kg Additional Vitals Peripheral Pulse Rate: 91 bpm Lab Results Microbiology No qualifying data available. Last 24 Hours Basic Metabolic Panel: Hematology: Sodium Lvl: 140 (02/13/20) Hgb: 9.1 (02/13/20) Potassium Lvl: 4.2 (02/13/20) Hgb A1c: ------ Phosphorus: 2.8 (02/13/20) WBC: 9.8 (02/13/20) Magnesium Lvl: 2.3 (02/13/20) Platelet: 169 (02/13/20) BUN: 23 (02/13/20) INR POC: ------ Creatinine Lvl: 1.64 (02/13/20) Creatinine Clearance: ------ Urinalysis: UA Glucose: Negative (02/13/20) UA Blood: Moderate (02/13/20) UA Nitrite: Negative (02/13/20) UA Protein: 30 (02/13/20) UA Ketones: Negative (02/13/20) Urine Color Urine Dipstick: Yellow (02/13/20) UA Leukocyte Esterase: Negative (02/13/20) UA Clarity: Hazy (02/13/20) UA Bili: Negative (02/13/20) UA pH: 5.0 (02/13/20) UA Urobilinogen: 0.2 (02/13/20) UA Spec Grav: 1.014 (02/13/20) Additional - Last 24 Hours Albumin Lvl: 3.4 (02/13/20) Anion Gap: 13 (02/13/20) BUN Crea Ratio: 14.0 (02/13/20) Calcium Lvl: 8.0 (02/13/20) Chloride: 105 (02/13/20) CO2: 26 (02/13/20) eGFR AA: 36 (02/13/20) eGFR Non-AA: 30 (02/13/20) Glucose Lvl: 114 (02/13/20) Hct: 27.6 (02/13/20) MCH: 30.7 (02/13/20) MCHC: 32.9 (02/13/20) MCV: 93.2 (02/13/20) Mean Platelet Volume: 9.0 (02/13/20) RBC: 2.96 (02/13/20) RDW: 14.5 (02/13/20) UA Mucus: Present (02/13/20) UA RBC Quant: 0 (02/13/20) UA Source: Clean Catch (02/13/20) UA WBC Quant: 0 (02/13/20) Diagnostic Results Diagnostic Radiology XR Chest 1 View 02/12/20 12:01:43 Impression: Stable chest without radiographic evidence of acute pulmonary process. Signed By: Manolo KUMAR, Ahmad XR Femur 2 or More Views Left 02/11/20 11:18:08 IMPRESSION: Intraoperative images demonstrating ORIF of the left femoral neck. It should be noted that there is no radiopaque marker indicating laterality on these images. Signed By: Sterling Aguillon MD Computed Tomography No qualifying data available. Ultrasound No qualifying data available. Magnetic Resonance Imaging No qualifying data available. Nuclear Medicine No qualifying data available. Physical Exam Patient refuses physical exam Medications Inpatient acetaminophen, 650 mg, Oral, q6hr, PRN acetaminophen, 650 mg, Oral, q6hr, PRN ALPRAZolam, 0.25 mg, Oral, HS (at bedtime) calcitriol, 0.25 mcg, Oral, Mo//Fr Dulcolax Laxative, 10 mg, Oral, Daily, PRN hydrALAZINE, 25 mg, Oral, TID HYDROmorphone, 0.5 mg, 0.5 mL, IV Push, q2hr, PRN Lovenox, 30 mg, 0.3 mL, Subcutaneous, q24hr meclizine, 25 mg, Oral, TID, PRN naloxone, 0.4 mg, 1 mL, IV Push, q2min, PRN [place] 5 mg-325 mg oral tablet, 1 tabs, Oral, q4hr, PRN Normal Saline Flush 0.9% injectable solution, 10 mL, IV Push, BID Normal Saline Flush 0.9% injectable solution, 10 mL, IV Push, As Indicated, PRN ondansetron, 4 mg, 2 mL, IV Push, q4hr, PRN pravastatin, 10 mg, Oral, HS (at bedtime) SEROquel, 25 mg, Oral, HS (at bedtime) Venofer verapamil 12 hour extended release, 180 mg, Oral, HS (at bedtime) Vitamin B12 with Folic Acid and Iron oral capsule, 1 caps, Oral, Daily Assessment/Plan 1. Chronic kidney disease Admission [facility] secondary to renal hypoperfusion, with baseline CKD stage IV. Post treatment with infusion of 2 L of IV fluid, hypertension management, and avoidance of nephrotoxic medications. Continues with post op delirium possibly from Medications, infection, electrolyte imbalances and immobility. Preliminary blood cultures negative, urinalysis benign. 2. Electrolyte abnormality Electrolyte abnormalities with hypophosphatemia and hyponatremia improved post supplementation. Continue moderate electrolyte metabolic panel and treat when indicated. 3. 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 Intact PTH level of 94. Calcitriol of 0.25 mcg on MWF. 4. 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 Adjustment home meds, presently on hydralazine 25 mg TID and verapamil 180 mg at bedtime. Continue to hold off on use of ARLETTE inhibitors or ARB medications at this time. Blood pressure well controlled on medications as above. 5. Status post hip surgery Admission intertrochanteric fracture of the left hip with surgical intervention by Dr. Jordan on 02/09 6. Intertrochanteric fracture of left hip 7. Anemia, Normocytic normochromic with admission hgb of 12.4. Iron panel obtained, iron saturation-7.6, ferritin- 75.8, B12-135, folate-4. Optimizing with IV Venofer 200 mg IVPB x 4 doses and multivitamin. Continue to monitor CBC, goal hgb > 8.0 for end organ perfusion. Hemoglobin stable 8. Acute delirium Leukocytosis resolved, Max temp 37.4 around midnight. Pulmonary blood cultures negative, urinalysis benign for infection. Questionable atelectasis post surgery. Discussed with hospitalist, plans to adjust medication with Haldol and Seroquel Hernandez cath has been DCd. 9. Hyperlipidemia 10. Hearing loss sensory, bilateral Electronically signed by Stephanie Chau 02/13/20 18:43 EDT The patient was personally evaluated by myself and the case was discussed with Stephanie Mendoza CNP. I agree with the above noted assessment and plans formulated by myself and discussed with the nurse practitioner. Patient with some delirium and evidence of some mild dementia, post orthopedic surgery and admission stress factors. Continue present renal management, with adjustment of her antihypertensive medications. Electronically signed by Dilan Chew DOariobenito 02/13/20 23:09 EDT Normal [facility] Orthopedic Progress Noteon 0 02-13-2020 Orthopedic Progress Note Subjective Patient is Status post intramedullary nailing of a hip fracture. She states that she is doing well although pleasantly confused today in her room. She states that the hip is not painful. Denies fevers or chills. She has been using ice which she reports improved pain. Hemoglobin stable at 9.1. Objective Vitals & Measurements T: 36.4 ?C (Axillary) T: 37.2 ?C (Oral) T: 37.5 ?C (Skin) HR: 76 (Monitored) RR: 16 BP: 104/58 SpO2: 93% HT: 157 cm WT: 68.2 kg DOSE WT: 68 kg Additional Vitals Peripheral Pulse Rate: 105 bpm High Lab Results Microbiology No qualifying data available. Diagnostic Results Diagnostic Radiology XR Chest 1 View 02/12/20 12:01:43 Impression: Stable chest without radiographic evidence of acute pulmonary process. Signed By: Benny French MD Computed Tomography No qualifying data available. Ultrasound No qualifying data available. Magnetic Resonance Imaging No qualifying data available. Nuclear Medicine No qualifying data available. Physical Exam Bandages are clean, dry, and intact. All compartments are palpably soft. Able to move the ankle and toes without issue. No palpable cords or calf tenderness. Palpable pedal pulse. Brisk capillary refill. Medications Inpatient acetaminophen, 650 mg, Oral, q6hr, PRN acetaminophen, 1000 mg, Oral, [id number] Times ALPRAZolam, 0.25 mg, Oral, HS (at bedtime) calcitriol, 0.25 mcg, Oral, Mo/We/Fr Dulcolax Laxative, 10 mg, Oral, Daily, PRN Haldol, 2.5 mg, 0.5 mL, IM, [id number] Times, PRN hydrALAZINE, 25 mg, Oral, TID Lovenox, 30 mg, 0.3 mL, Subcutaneous, q24hr meclizine, 25 mg, Oral, TID, PRN naloxone, 0.4 mg, 1 mL, IV Push, q2min, PRN [place] 5 mg-325 mg oral tablet, 1 tabs, Oral, q6hr, PRN Normal Saline Flush 0.9% injectable solution, 10 mL, IV Push, BID Normal Saline Flush 0.9% injectable solution, 10 mL, IV Push, As Indicated, PRN ondansetron, 4 mg, 2 mL, IV Push, q4hr, PRN pravastatin, 10 mg, Oral, HS (at bedtime) SEROquel, 25 mg, Oral, BID Venofer verapamil 12 hour extended release, 180 mg, Oral, HS (at bedtime) Vitamin B12 with Folic Acid and Iron oral capsule, 1 caps, Oral, Daily Assessment/Plan 1. Delirium, acute 2. Intertrochanteric fracture of left hip Status post IM nailing, doing well. Hemoglobin stable at 9.1. Continue pain control, DVT prophylaxis, and PT. Okay to DC to detention facility from orthopedic standpoint. Follow-up at [facility] with Dr. Jordan in 2 weeks. 3. Chronic kidney disease 4. Electrolyte abnormality 5. Renal osteodystrophy 6. Hypertension 7. Status post hip surgery 8. Laceration of head 9. Hearing loss sensory, bilateral 10. Anemia Electronically signed by Naman Edmond PA-C 02/13/20 17:38 EDT Normal [facility] Renal Panelon 02-13-2020 Albumin [Mass/Vol] 3.4 g/dL Normal 3.2-4.9 [facility] Comment on above: Result Comment: [facility] Laboratory updated the methodology used for albumin testing on 05/04/18. Albumin measurement was performed using a bromcresol purple dye-binding assay. Performed By: #### R ENAL #### [address] [address] Anion gap [Moles/Vol] 13 mmol/L Normal 7-17 [facility] Comment on above: Performed By: #### R ENAL #### [address] [address] Calcium [Mass/Vol] 8.0 mg/dL Low 8.5-10.3 [facility] Comment on above: Performed By: #### R ENAL #### [address] [address] Chloride [Moles/Vol] 105 mmol/L Normal 98-110 [facility] Comment on above: Performed By: #### R ENAL #### [address] [address] CO2 [Moles/Vol] 26 mmol/L Normal 22-32 [facility] Comment on above: Performed By: #### R ENAL #### [address] [address] Creatinine [Mass/Vol] 1.64 mg/dL High 0.44-1.03 [facility] Comment on above: Performed By: #### R ENAL #### [address] [address] Glucose [Mass/Vol] 114 mg/dL High 70-99 [facility] Comment on above: Performed By: #### R ENAL #### [address] [address] Phosphate [Mass/Vol] 2.8 mg/dL Normal 2.5-4.6 [facility] Comment on above: Performed By: #### R ENAL #### [address] [address] Potassium [Moles/Vol] 4.2 mmol/L Normal 3.4-4.8 [facility] Comment on above: Performed By: #### R ENAL #### [address] [address] Sodium [Moles/Vol] 140 mmol/L Normal 133-142 [facility] Comment on above: Performed By: #### R ENAL #### [address] [address] Urea nitrogen [Mass/Vol] 23 mg/dL Normal 8-26 [facility] Comment on above: Performed By: #### R ENAL #### [address] [address] Urea nitrogen/Creatinine [Mass ratio] 14.0 mg/mg Normal 10.0-20.0 [facility] Comment on above: Performed By: #### R ENAL #### [address] [address] UA w Culture if Indon 2019 Color (U) Yellow Normal [facility] Comment on above: Performed By: #### T IBC #### [address] [address] Glucose (U) [Mass/Vol] Negative Normal Negative [facility] Comment on above: Performed By: #### T IBC #### [facility] [address] [place] [address], [place] [address] Ketones Ql (U) Negative Normal Negative [facility] Comment on above: Performed By: #### T IBC #### [facility] [address] [place] [address], [place] [address] UA Blood Moderate Abnormal Negative [facility] Comment on above: Performed By: #### T IBC #### [address] [place] [address] UA Clarity Hazy Normal [facility] Comment on above: Performed By: #### T IBC #### [address] [place] [address] UA Leukocyte Esterase Negative Normal Negative [facility] Comment on above: Performed By: #### T IBC #### [address] [place] [address] UA Nitrite Negative Normal Negative [facility] Comment on above: Performed By: #### T IBC #### [address] [place] [address] UA pH 5.0 Normal 4.5 - 7.8 [facility] Comment on above: Performed By: #### T IBC #### [facility] [address] [place] [address] UA Protein 30 mg/dL Abnormal Negative [facility] Comment on above: Performed By: #### T IBC #### [address] [place] [address] UA Source Clean Catch Normal [facility] Comment on above: Performed By: #### T IBC #### [address] [place] [address] UA Spec Grav 1.014 Normal 1.003-1.035 [facility] Comment on above: Performed By: #### T IBC #### [address] [place] [address] UA Urobilinogen 0.2 mg/dL Normal 0.2 - 1.0 [facility] Comment on above: Performed By: #### T IBC #### [place] [id number] Urobilinogen Qn (U) Negative Normal Negative [facility] Comment on above: Performed By: #### T IBC #### [address] [address] .eGFRon 02-12-2020 eGFR AA 44 mL/min/1.73m? Low >=60 [facility] Comment on above: Order Comment: Order added by Discern rule Result Comment: Resu lt = 0-14.9 mL/min/1.73 m2 Kidney failure or Dialysis Result = 15-29 mL/min/1.73 m2 Severe decrease in GFR Result = 30-59 mL/min/1.73 m2 Moderate decrease in GFR Result >= 60 mL/min/1.73 m2 Normal or increased GFR Performed By: #### E GFR #### [place] [address] eGFR Non-AA 36 mL/min/1.73m? Low >=60 [facility] Comment on above: Order Comment: Order added by Discern rule Result Comment: Resu lt = 0-14.9 mL/min/1.73 m2 Kidney failure or Dialysis Result = 15-29 mL/min/1.73 m2 Severe decrease in GFR Result = 30-59 mL/min/1.73 m2 Moderate decrease in GFR Result >= 60 mL/min/1.73 m2 Normal or increased GFR Chronic kidney disease is defined as either kidney damage or GFR < 60 mL/min/1.73 m2 for >= 3 months. Kidney damage is defined as pathologic abnormalities or markers of damage including abnormalities in blood or urine tests or imaging studies. This GFR is NOT used for medication dosing. Performed By: #### E GFR #### [address] [address] CBCon 02-12-2020 Erythrocyte distribution width (RBC) [Ratio] 14.3 % Normal 11.6-14.8 [facility] Comment on above: Performed By: #### T IBC #### [address] [address] Hematocrit (Bld) [Volume fraction] 28.6 % Low 36.0-46.0 [facility] Comment on above: Performed By: #### T IBC #### [address] [address] Hemoglobin (Bld) [Mass/Vol] 9.4 g/dL Low 12.0-16.0 [facility] Comment on above: Performed By: #### T IBC #### [address] [address] MCH (RBC) [Entitic mass] 31.0 pg Normal 27.0-35.0 [facility] Comment on above: Performed By: #### T IBC #### [address] [address] MCHC (RBC) [Mass/Vol] 33.0 % Normal 31.0-37.0 [facility] Comment on above: Performed By: #### T IBC #### [address] [address] MCV (RBC) [Entitic vol] 93.9 fL Normal 80.0-100.0 [facility] Comment on above: Performed By: #### T IBC #### [address] [address] Platelet mean volume (Bld) [Entitic vol] 8.7 fL Normal 6.7-10.6 [facility] Comment on above: Performed By: #### T IBC #### [address] [address] Platelets (Bld) [#/Vol] 136 x10*3/mcL Low 150-350 [facility] Comment on above: Performed By: #### T IBC #### [address] [address] RBC (Bld) [#/Vol] 3.05 x10*6/mcL Low 3.80-5.20 [facility] Comment on above: Performed By: #### T IBC #### [facility] [address] [place] [address] WBC (Bld) [#/Vol] 11.4 x10*3/mcL High 4.5-11.0 [facility] Comment on above: Performed By: #### T IBC #### [facility] [address] [place] [address] Magnesiumon 02-12-2020 Magnesium [Mass/Vol] 2.5 mg/dL High 1.7-2.4 [facility] Comment on above: Performed By: #### M G #### [facility] [address] [place] [address] Nephrology Progress Noteon 0 02-12-2020 Nephrology Progress Note Subjective Patient seen and evaluate today on the sixth floor with acute delirium that started this morning. She is agitated and has been trying to crawl out of bed and strike staff. She is moving all extremities with easy respirations. Review of Systems patient not answering questions Objective Vitals & Measurements T: 36.4 ?C (Axillary) T: 37.7 ?C (Oral) T: 37.5 ?C (Skin) HR: 76 (Monitored) RR: 14 BP: 121/64 SpO2: 97% HT: 157 cm WT: 67.1 kg DOSE WT: 68 kg Additional Vitals Peripheral Pulse Rate: 86 bpm Lab Results Microbiology No qualifying data available. Last 24 Hours Basic Metabolic Panel: Hematology: Sodium Lvl: 134 (02/12/20) Hgb: 9.4 (02/12/20) Potassium Lvl: 3.8 (02/12/20) Hgb A1c: ------ Phosphorus: 2.6 (02/12/20) WBC: 11.4 (02/12/20) Magnesium Lvl: 2.5 (02/12/20) Platelet: 136 (02/12/20) BUN: 21 (02/12/20) INR POC: ------ Creatinine Lvl: 1.39 (02/12/20) Creatinine Clearance: ------ Additional - Last 24 Hours Albumin Lvl: 3.6 (02/12/20) Anion Gap: 14 (02/12/20) BUN Crea Ratio: 15.1 (02/12/20) Calcium Lvl: 8.1 (02/12/20) Chloride: 98 (02/12/20) CO2: 26 (02/12/20) eGFR AA: 44 (02/12/20) eGFR Non-AA: 36 (02/12/20) Glucose Lvl: 134 (02/12/20) Hct: 28.6 (02/12/20) MCH: 31.0 (02/12/20) MCHC: 33.0 (02/12/20) MCV: 93.9 (02/12/20) Mean Platelet Volume: 8.7 (02/12/20) Procalcitonin Lvl: 0.54 (02/12/20) PTH Intact: 94 (02/12/20) RBC: 3.05 (02/12/20) RDW: 14.3 (02/12/20) Diagnostic Results Diagnostic Radiology XR Chest 1 View 02/12/20 12:01:43 Impression: Stable chest without radiographic evidence of acute pulmonary process. Signed By: Manolo KUMAR, [facility] XR Femur 2 or More Views Left 02/11/20 11:18:08 IMPRESSION: Intraoperative images demonstrating ORIF of the left femoral neck. It should be noted that there is no radiopaque marker indicating laterality on these images. Signed By: Sterling Aguillon MD Computed Tomography No qualifying data available. Physical Exam Physical assessment limited due to patient agitation Lungs: [ Non-labored respiration on room air]. Heart: [no edema]. Abdomen: [ non-distended]. Mental Status:[Agitated, confused ]. Medications Inpatient acetaminophen, 650 mg, Oral, q6hr, PRN acetaminophen, 650 mg, Oral, q6hr, PRN ALPRAZolam, 0.25 mg, Oral, HS (at bedtime) calcitriol, 0.25 mcg, Oral, Mo/We/Fr Dulcolax Laxative, 10 mg, Oral, Daily, PRN hydrALAZINE, 25 mg, Oral, TID HYDROmorphone, 0.5 mg, 0.5 mL, IV Push, q2hr, PRN Lovenox, 30 mg, 0.3 mL, Subcutaneous, q24hr meclizine, 25 mg, Oral, TID, PRN naloxone, 0.4 mg, 1 mL, IV Push, q2min, PRN [place] 5 mg-325 mg oral tablet, 1 tabs, Oral, q4hr, PRN Normal Saline Flush 0.9% injectable solution, 10 mL, IV Push, BID Normal Saline Flush 0.9% injectable solution, 10 mL, IV Push, As Indicated, PRN ondansetron, 4 mg, 2 mL, IV Push, q4hr, PRN potassium chloride extended release, 40 mEq, Oral, Once pravastatin, 10 mg, Oral, HS (at bedtime) SEROquel, 25 mg, Oral, HS (at bedtime) sodium phosphate Venofer verapamil 12 hour extended release, 180 mg, Oral, HS (at bedtime) Vitamin B12 with Folic Acid and Iron oral capsule, 1 caps, Oral, Daily Assessment/Plan 1. Chronic kidney disease Improving admission [facility] secondary to renal hypoperfusion, with baseline CKD stage IV. Post treatment with infusion of 2 L of IV fluid, hypertension management, and avoidance of nephrotoxic medications. Continued improvement in renal function today. 2. Electrolyte abnormality Hypophosphatemia-----p [place] for treatment with use of sodium phosphate 20 mmol IV ?1 Hyponatremia---- plan for treatment with use of sodium phosphate for patients sodium level less than 135 Will also give KCL 40 mEq PO x 1. 3. 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 Intact PTH level of 94. Calcitriol of 0.25 mcg on MWF. 4. 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 Her hydralazine was reduced to 25mg TID and she continues with Verapamil 180 mg daily at bedtime. Continue to hold off on use of ARLETTE inhibitors or ARB medications at this time. Blood pressure well controlled on medications as above. 5. Status post hip surgery Admission intertrochanteric fracture of the left hip with surgical intervention by Dr. Jordan on 02/09 6. Intertrochanteric fracture of left hip 7. Anemia, Normocytic normochromic with admission hgb of 12.4. Hgb today of 9.4. Iron panel obtained, iron saturation-7.6, ferritin- 75.8, B12-135, folate-4. Plan to optimize with IV Venofer 200 mg IVPB x 4 doses and multivitamin. Continue to monitor CBC, goal hgb > 8.0 for end organ perfusion. 8. Acute delirium With mild leukocytosis and febrile over last 24 hours, max this AM of 37.7. Spoke to hospitalist, plan for panculture. Hernandez cath has been DCd. 9. Hyperlipidemia 10. Hearing loss sensory, bilateral Electronically signed by Stephanie Chau 02/12/20 12:53 EDT Patient will remain here until 02/14/2020 for insurance for rehab Electronically signed by Kenyatta Pena 02/12/20 13:14 EDT The patient was personally evaluated by myself and the case was discussed with Stephanie Marrufo CNP. I agree with the above noted assessment and plans. Improved admission CKD, baseline stage IV. Presently with some delirium that is possibly from an infectious process, or stress from patient's current clinical incident with her left intertrochanteric fracture Electronically signed by Dilan Chew DO 02/12/20 21:34 EDT Normal [facility] Orthopedic Progress Noteon 0 02-12-2020 Orthopedic Progress Note Subjective Patient is disoriented and combative. States hip is sore. Denies fever/chills. Objective Vitals & Measurements T: 36.4 ?C (Axillary) T: 37.7 ?C (Oral) T: 37.5 ?C (Skin) HR: 76 (Monitored) RR: 14 BP: 121/64 SpO2: 97% HT: 157 cm WT: 67.1 kg DOSE WT: 68 kg Additional Vitals Peripheral Pulse Rate: 86 bpm Lab Results Microbiology No qualifying data available. Diagnostic Results Diagnostic Radiology XR Femur 2 or More Views Left 02/11/20 11:18:08 IMPRESSION: Intraoperative images demonstrating ORIF of the left femoral neck. It should be noted that there is no radiopaque marker indicating laterality on these images. Signed By: Sterling Aguillon MD Computed Tomography No qualifying data available. Ultrasound No qualifying data available. Magnetic Resonance Imaging No qualifying data available. Nuclear Medicine No qualifying data available. Physical Exam Dressings are clean, dry, and intact. Patient has intact sensation through the lower extremity. All compartments are soft. Palpable pedal pulse. Brisk capillary refill. Wiggles toes and moves ankle. Medications Inpatient acetaminophen, 650 mg, Oral, q6hr, PRN acetaminophen, 650 mg, Oral, q6hr, PRN ALPRAZolam, 0.25 mg, Oral, HS (at bedtime) calcitriol, 0.25 mcg, Oral, Mo/We/Fr Dulcolax Laxative, 10 mg, Oral, Daily, PRN hydrALAZINE, 25 mg, Oral, TID HYDROmorphone, 0.5 mg, 0.5 mL, IV Push, q2hr, PRN Lovenox, 30 mg, 0.3 mL, Subcutaneous, q24hr meclizine, 25 mg, Oral, TID, PRN naloxone, 0.4 mg, 1 mL, IV Push, q2min, PRN [place] 5 mg-325 mg oral tablet, 1 tabs, Oral, q4hr, PRN Normal Saline Flush 0.9% injectable solution, 10 mL, IV Push, BID Normal Saline Flush 0.9% injectable solution, 10 mL, IV Push, As Indicated, PRN ondansetron, 4 mg, 2 mL, IV Push, q4hr, PRN potassium chloride extended release, 40 mEq, Oral, Once pravastatin, 10 mg, Oral, HS (at bedtime) SEROquel, 25 mg, Oral, HS (at bedtime) sodium phosphate Venofer verapamil 12 hour extended release, 180 mg, Oral, HS (at bedtime) Vitamin B12 with Folic Acid and Iron oral capsule, 1 caps, Oral, Daily Assessment/Plan 1. Chronic kidney disease 2. Electrolyte abnormality 3. Renal osteodystrophy 4. Hypertension 5. Status post hip surgery 6. Intertrochanteric fracture of left hip Doing well. Continue PT, pain control, DVT prophylaxis. Hemoglobin stable. 7. Fall 8. Laceration of head 9. Hyperlipidemia 10. Hearing loss sensory, bilateral 11. Anemia 12. Delirium, acute Electronically signed by Naman Edmond PA-C 02/12/20 11:16 EDT [facility] PTH-INTon 02-12-2020 PTH Intact 94 pg/mL High 12-88 [facility] Comment on above: Performed By: #### P HOS #### [address] [address] Procalcitonin Levelon 2019 Procalcitonin Lvl 0.54 ng/mL High <=0.49 [facility] Comment on above: Result Comment: < 0. 50 ng/mL: Low Risk of severe sepsis and/or septic shock. >2.00 ng/mL: High Risk of severe sepsis and/or septic shock. Concentrations under 0.5 ng/mL do not exclude local infections or systemic infections in their initial stages (e.g. under six hours from onset of illness). PCT concentrations between 0.50 and 2.00 ng/mL should be interpreted with consideration of the patient?s history. In this range, it is recommended to retest PCT within 6 to 24 hours. Performed By: #### E GFR #### [address] [address] Progress Note - [facility] Progress Note - Generic Subjective The patient is urgently evaluated at the bedside. She is restless and agitated striking out at hospital staff. The patient is trying to climb out of bed and even attempted to bite the examining Hospitalist. The patient has been febrile for the past 24 hours. Review of Systems Unable to perform review of systems secondary to patient's agitation Objective Vital signs are stable. Patient has been febrile overnight. Physical Exam General: Patient is alert and combative in acute distress.. Eye: Normal conjunctiva. HENT: Normocephalic, laceration to back of head, decreased hearing, moist oral mucosa, no scleral icterus. Neck: Supple, non-tender, no carotid bruits, no JVD, no lymphadenopathy. Lungs: Clear to auscultation and percussion, no wheezes, rhonchi, or Rales, non-labored respirations on 2L of supplemental oxygen. Heart: Normal rate, regular rhythm, no murmur, gallop or edema. Abdomen: Soft, non-tender, non-distended, normal bowel sounds, no masses. Musculoskeletal: Normal range of motion and strength, left hip tenderness. Skin: Skin is warm, dry and pink, no rashes or lesions. Neurologic: Awake, alert, and oriented to self only, CN II-XII intact. Psychiatric: Uncooperative Vitals & Measurements T: 36.4 ?C (Axillary) T: 37.7 ?C (Oral) T: 37.5 ?C (Skin) HR: 76 (Monitored) RR: 14 BP: 121/64 SpO2: 97% HT: 157 cm WT: 67.1 kg DOSE WT: 68 kg Additional Vitals Peripheral Pulse Rate: 86 bpm Lab Results Labs (Last four charted values) WBC H 11.4 (FEBRUARY 11) H 11.3 (FEBRUARY 10) H 11.1 (FEBRUARY 09) Hgb L 9.4 (FEBRUARY 11) L 10.6 (FEBRUARY 10) 12.4 (FEBRUARY 09) Hct L 28.6 (FEBRUARY 11) L 32.5 (FEBRUARY 10) 38.8 (FEBRUARY 09) Plt L 136 (FEBRUARY 11) 156 (FEBRUARY 10) 198 (FEBRUARY 09) Na 134 (FEBRUARY 11) L 132 (FEBRUARY 10) 138 (FEBRUARY 09) K 3.8 (FEBRUARY 11) 4.0 (FEBRUARY 10) H 5.2 (FEBRUARY 09) CO2 26 (FEBRUARY 11) 25 (FEBRUARY 10) 24 (FEBRUARY 09) Cl 98 (FEBRUARY 11) 99 (FEBRUARY 10) 102 (FEBRUARY 09) Cr H 1.39 (FEBRUARY 11) H 1.51 (FEBRUARY 10) H 1.87 (FEBRUARY 09) BUN 21 (FEBRUARY 11) H 29 (FEBRUARY 10) H 41 (FEBRUARY 09) Mg H 2.5 (FEBRUARY 11) L 1.6 (FEBRUARY 10) 2.0 (FEBRUARY 09) Phos 2.6 (FEBRUARY 11) L 2.2 (FEBRUARY 10) 3.8 (FEBRUARY 09) Microbiology No qualifying data available. Diagnostic Results Diagnostic Radiology XR Femur 2 or More Views Left 02/11/20 11:18:08 IMPRESSION: Intraoperative images demonstrating ORIF of the left femoral neck. It should be noted that there is no radiopaque marker indicating laterality on these images. Signed By: Pal KUMAR, Sterling Lock Computed Tomography No qualifying data available. Ultrasound No qualifying data available. Magnetic Resonance Imaging No qualifying data available. Nuclear Medicine No qualifying data available. Medications Inpatient acetaminophen, 650 mg, Oral, q6hr, PRN acetaminophen, 650 mg, Oral, q6hr, PRN ALPRAZolam, 0.25 mg, Oral, HS (at bedtime) calcitriol, 0.25 mcg, Oral, Mo/We/Fr hydrALAZINE, 25 mg, Oral, TID HYDROmorphone, 0.5 mg, 0.5 mL, IV Push, q2hr, PRN Lovenox, 30 mg, 0.3 mL, Subcutaneous, q24hr meclizine, 25 mg, Oral, TID, PRN naloxone, 0.4 mg, 1 mL, IV Push, q2min, PRN [place] 5 mg-325 mg oral tablet, 1 tabs, Oral, q4hr, PRN Normal Saline Flush 0.9% injectable solution, 10 mL, IV Push, BID Normal Saline Flush 0.9% injectable solution, 10 mL, IV Push, As Indicated, PRN ondansetron, 4 mg, 2 mL, IV Push, q4hr, PRN potassium chloride extended release, 40 mEq, Oral, Once pravastatin, 10 mg, Oral, HS (at bedtime) SEROquel, 25 mg, Oral, HS (at bedtime) sodium phosphate Venofer verapamil 12 hour extended release, 180 mg, Oral, HS (at bedtime) Vitamin B12 with Folic Acid and Iron oral capsule, 1 caps, Oral, Daily Assessment/Plan Brief Hospital Course Summary Patient is an 84-year-old female that was admitted for a left intertrochanteric hip fracture following a fall. There is noted shortening without rotation left lower extremity. There is also a small scabbed area with dried blood on posterior superior scalp without sutures or vivi. Patient is scheduled for surgery on 02/10/[address] Jordan. Patient underwent left hip intramedullary nailing on 02/10/2020 without complications. Consult placed to nephrology for management of CKD, patient evaluated by Dr. Chew. Patient with acute delirium and has been started on Seroquel. Assessment 1. Chronic kidney disease 2. Electrolyte abnormality 3. Renal osteodystrophy 4. Hypertension 5. Status post hip surgery 6. Intertrochanteric fracture of left hip 7. Fall 8. Laceration of head 9. Hyperlipidemia 10. Hearing loss sensory, bilateral 11. Anemia 12. Delirium, acute Plan QUEtiapine, 25 mg, Oral, Tab, HS (at bedtime), First Dose: 02/12/20 21:00:00 EDT, Dispense From Location: [facility] EKG Indwelling Urinary Catheter Discontinue Sitter at Bedside Patient was administered Haldol 2.5mg IM once EKG ordered Seroquel 25mg Q HS Urinalysis CXR procalcitonin level PRN bedside sitter D/C indwelling catheter No bowel movement since admission Dulcolax suppository PRN daily Discharge Barriers: Acute delirium, will need SNF placement for rehabilitation Code Status: Full Resuscitation Family Updated: Updated by nursing Activity at baseline: Ambulatory (?) Anticipated Discharge Location: Unclear at this time Anticipated Discharge Date: Undetermined Electronically signed by Kenyatta Pena 02/12/20 10:03 EDT [facility] Progress Note-Nurseon 2019 Progress Note-Nurse Attempted to administer morning meds and new meds that were ordered by nephrology. Patient is currently confused and combative, and refusing all patient care. Electronically signed by Mery De La Rosa 02/12/20 13:24 EDT [facility] Renal Panelon 02-12-2020 Albumin [Mass/Vol] 3.6 g/dL Normal 3.2-4.9 [facility] Comment on above: Result Comment: [facility] Laboratory updated the methodology used for albumin testing on 05/04/18. Albumin measurement was performed using a bromcresol purple dye-binding assay. Performed By: #### P HOS #### [address] [address] Anion gap [Moles/Vol] 14 mmol/L Normal 7-17 [facility] Comment on above: Performed By: #### P HOS #### [address] [address] Calcium [Mass/Vol] 8.1 mg/dL Low 8.5-10.3 [facility] Comment on above: Performed By: #### P HOS #### [address] [address] Chloride [Moles/Vol] 98 mmol/L Normal 98-110 [facility] Comment on above: Performed By: #### P HOS #### [address] [address] CO2 [Moles/Vol] 26 mmol/L Normal 22-32 [facility] Comment on above: Performed By: #### P HOS #### [address] [address] Creatinine [Mass/Vol] 1.39 mg/dL High 0.44-1.03 [facility] Comment on above: Performed By: #### P HOS #### [address] [address] Glucose [Mass/Vol] 134 mg/dL High 70-99 [facility] Comment on above: Performed By: #### P HOS #### [address] [address] Phosphate [Mass/Vol] 2.6 mg/dL Normal 2.5-4.6 [facility] Comment on above: Performed By: #### P HOS #### [address] [address] Potassium [Moles/Vol] 3.8 mmol/L Normal 3.4-4.8 [facility] Comment on above: Performed By: #### P HOS #### [address] [address] Sodium [Moles/Vol] 134 mmol/L Normal 133-142 [facility] Comment on above: Performed By: #### P HOS #### [address] [address] Urea nitrogen [Mass/Vol] 21 mg/dL Normal 8-26 [facility] Comment on above: Performed By: #### P HOS #### [address] [address] Urea nitrogen/Creatinine [Mass ratio] 15.1 mg/mg Normal 10.0-20.0 [facility] Comment on above: Performed By: #### P HOS #### [address] [address] XR Chest 1 Viewon 02-12-2020 XR Chest 1 View Chest radiograph on 02/12/2020 Clinical History: Cough Comparison: Chest radiograph on 02/09/2020 Findings: Single view of the chest was obtained. The cardiomediastinal silhouette is stable. Prominent mediastinum could be projectional. No pneumothorax, pleural effusion or pulmonary consolidation. Calcified granuloma in the left upper lobe. No acute bony abnormality. Impression: Stable chest without radiographic evidence of acute pulmonary process. Final Dictated by: Benny French MD Dictated DT/TM: 02/12/2020 11:57 am Signed by: Benny French MD Signed (Electronic Signature): 02/12/2020 12:01 pm (If Report Is Signed, Electronically Signed in Other Vendor System) [facility] .eGFRon 02-11-2020 eGFR Non-AA 33 mL/min/1.73m? Low >=60 [facility] Comment on above: Order Comment: Order added by Discern rule Result Comment: Resu lt = 0-14.9 mL/min/1.73 m2 Kidney failure or Dialysis Result = 15-29 mL/min/1.73 m2 Severe decrease in GFR Result = 30-59 mL/min/1.73 m2 Moderate decrease in GFR Result >= 60 mL/min/1.73 m2 Normal or increased GFR Chronic kidney disease is defined as either kidney damage or GFR < 60 mL/min/1.73 m2 for >= 3 months. Kidney damage is defined as pathologic abnormalities or markers of damage including abnormalities in blood or urine tests or imaging studies. This GFR is NOT used for medication dosing. Performed By: #### F OL #### [place] [address] eGFR AA 40 mL/min/1.73m? Low >=60 [facility] Comment on above: Order Comment: Order added by Discern rule Result Comment: Resu lt = 0-14.9 mL/min/1.73 m2 Kidney failure or Dialysis Result = 15-29 mL/min/1.73 m2 Severe decrease in GFR Result = 30-59 mL/min/1.73 m2 Moderate decrease in GFR Result >= 60 mL/min/1.73 m2 Normal or increased GFR Performed By: #### F OL #### [address] [address] B12on 02-11-2020 Cobalamin (Vitamin B12) [Mass/Vol] 135 pg/mL Low 180-914 [facility] Comment on above: Order Comment: ok to add on to am labs per [place]02/11/2020 12:08:01 EDT [facility] Performed By: #### T IBC #### [address] [address] CBCon 02-11-2020 Erythrocyte distribution width (RBC) [Ratio] 14.2 % Normal 11.6-14.8 [facility] Comment on above: Performed By: #### P HOS #### [address] [address] Hematocrit (Bld) [Volume fraction] 32.5 % Low 36.0-46.0 [facility] Comment on above: Performed By: #### P HOS #### [address] [address] Hemoglobin (Bld) [Mass/Vol] 10.6 g/dL Low 12.0-16.0 [facility] Comment on above: Performed By: #### P HOS #### [address] [address] MCH (RBC) [Entitic mass] 30.9 pg Normal 27.0-35.0 [facility] Comment on above: Performed By: #### P HOS #### [address] [address] MCHC (RBC) [Mass/Vol] 32.6 % Normal 31.0-37.0 [facility] Comment on above: Performed By: #### P HOS #### [address] [address] MCV (RBC) [Entitic vol] 94.6 fL Normal 80.0-100.0 [facility] Comment on above: Performed By: #### P HOS #### [address] [address] Platelet mean volume (Bld) [Entitic vol] 8.5 fL Normal 6.7-10.6 [facility] Comment on above: Performed By: #### P HOS #### [address] [address] Platelets (Bld) [#/Vol] 156 x10*3/mcL Normal 150-350 [facility] Comment on above: Performed By: #### P HOS #### [address] [address] RBC (Bld) [#/Vol] 3.44 x10*6/mcL Low 3.80-5.20 [facility] Comment on above: Performed By: #### P HOS #### [address] [address] WBC (Bld) [#/Vol] 11.3 x10*3/mcL High 4.5-11.0 [facility] Comment on above: Performed By: #### P HOS #### [address] [address] Ferritinon 02-11-2020 Ferritin [Mass/Vol] 75.8 ng/mL Normal 11.0-306.8 [facility] Comment on above: Performed By: #### T IBC #### [address] [address] Folate Lvlon 02-11-2020 Folate Lvl 4.0 ng/mL Low >=5.9 [facility] Comment on above: Result Comment: A [facility] Technical Consultation has determined that deficient Folate concentrations are considered to be less than 4 ng/mL. Performed By: #### F OL #### [address] [address] Magnesiumon 02-11-2020 Magnesium [Mass/Vol] 1.6 mg/dL Low 1.7-2.4 [facility] Comment on above: Performed By: #### E GFR #### [address] [address] Nephrology Progress Noteon 0 02-11-2020 Nephrology Progress Note Subjective Patient reports no chest pain or shortness of breath. Patient also reports no fever, chills, nausea or vomiting. Patient reports poor appetite, denies having any dysuria or hematuria. Review of Systems As noted above Objective Vitals & Measurements T: 36.4 ?C (Axillary) T: 37.2 ?C (Oral) T: 37.5 ?C (Skin) HR: 76 (Monitored) RR: 14 BP: 115/66 SpO2: 92% HT: 157 cm WT: 72.9 kg DOSE WT: 68 kg Additional Vitals Peripheral Pulse Rate: 105 bpm High Lab Results Microbiology No qualifying data available. Labs (Last four charted values) WBC H 11.3 (FEBRUARY 10) H 11.1 (FEBRUARY 09) Hgb L 10.6 (FEBRUARY 10) 12.4 (FEBRUARY 09) Hct L 32.5 (FEBRUARY 10) 38.8 (FEBRUARY 09) Plt 156 (FEBRUARY 10) 198 (FEBRUARY 09) Na L 132 (FEBRUARY 10) 138 (FEBRUARY 09) K 4.0 (FEBRUARY 10) H 5.2 (FEBRUARY 09) CO2 25 (FEBRUARY 10) 24 (FEBRUARY 09) Cl 99 (FEBRUARY 10) 102 (FEBRUARY 09) Cr H 1.51 (FEBRUARY 10) H 1.87 (FEBRUARY 09) BUN H 29 (FEBRUARY 10) H 41 (FEBRUARY 09) Mg L 1.6 (FEBRUARY 10) 2.0 (FEBRUARY 09) Phos L 2.2 (FEBRUARY 10) 3.8 (FEBRUARY 09) Diagnostic Results Diagnostic Radiology XR Femur 2 or More Views Left 02/11/20 11:18:08 IMPRESSION: Intraoperative images demonstrating ORIF of the left femoral neck. It should be noted that there is no radiopaque marker indicating laterality on these images. Signed By: Sterling Aguillon MD Computed Tomography No qualifying data available. Ultrasound No qualifying data available. Magnetic Resonance Imaging No qualifying data available. Nuclear Medicine No qualifying data available. Physical Exam HEENT: Normocephalic and with moist mucous membranes CV: Heart with regular rate and rhythm Lungs: Clear to auscultation bilaterally Abdomen: No tenderness to palpation and with normal bowel sounds Lower extremities: No edema Medications Inpatient acetaminophen, 650 mg, Oral, q6hr, PRN acetaminophen, 650 mg, Oral, q6hr, PRN ALPRAZolam, 0.25 mg, Oral, HS (at bedtime) calcitriol, 0.25 mcg, Oral, Mo//Fr hydrALAZINE, 25 mg, Oral, TID HYDROmorphone, 0.5 mg, 0.5 mL, IV Push, q2hr, PRN Lovenox, 30 mg, 0.3 mL, Subcutaneous, q24hr meclizine, 25 mg, Oral, TID, PRN naloxone, 0.4 mg, 1 mL, IV Push, q2min, PRN [place] 5 mg-325 mg oral tablet, 1 tabs, Oral, q4hr, PRN Normal Saline Flush 0.9% injectable solution, 10 mL, IV Push, BID Normal Saline Flush 0.9% injectable solution, 10 mL, IV Push, As Indicated, PRN ondansetron, 4 mg, 2 mL, IV Push, q4hr, PRN pravastatin, 10 mg, Oral, HS (at bedtime) verapamil 12 hour extended release, 180 mg, Oral, HS (at bedtime) Assessment/Plan 1. Chronic kidney disease Improving admission ATI secondary to renal hypoperfusion, with baseline CKD stage IV. Post treatment with infusion of 2 L of IV fluid, hypertension management, and avoidance of nephrotoxic medications. 2. Electrolyte abnormality Hypophosphatemia-----p [place] for treatment with use of sodium phosphate 30 mmol IV ?1 Hyponatremia---- plan for treatment with use of sodium phosphate for patients sodium level less than 135 Hypomagnesemia----hilda ent was treated with 4 g of magnesium sulfate by the hospitalist team. 3. 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 Plan to check intact PTH level and determine dosage of medication needed. 4. 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 Plan to reduce the dosage of hydralazine to 25mg TID and continue with Verapamil daily Hold off on use of ARLETTE inhibitors or ARB medications at this time. 5. Status post hip surgery Admission intertrochanteric fracture of the left hip with surgical intervention by Dr. Jordan. 6. Intertrochanteric fracture of left hip 7. Fall 8. Laceration of head 9. Hyperlipidemia 10. Hearing loss sensory, bilateral Orders: hydrALAZINE, 25 mg, Oral, Tab, TID, First Dose: 02/11/20 14:00:00 EDT, Dispense From Location: [facility] Electronically signed by Dilan Chew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, bilateral Hyperlipidemia Hypertension Historical No qualifying data Procedure/Surgical History knee replacement Medications Home ALPRAZolam 0.25 mg oral tablet, 0.25 mg, 1 tabs, Oral, HS (at bedtime) calcitriol 0.25 mcg oral capsule, 0.25 mcg, 1 caps, Oral, Mo/We/Fr hydrALAZINE 25 mg oral tablet, 25 mg, 1 tabs, Oral, BID meclizine 25 mg oral tablet, 25 mg, 1 tabs, Oral, TID, PRN pravastatin 10 mg oral tablet, 10 mg, 1 tabs, Oral, HS (at bedtime) spironolactone 25 mg oral tablet, 25 mg, 1 tabs, Oral, Daily verapamil 180 mg/12 hours oral tablet, extended release, 180 mg, 1 tabs, Oral, HS (at bedtime) Inpatient acetaminophen, 650 mg, Oral, q6hr, PRN acetaminophen, 650 mg, Oral, q6hr, PRN ALPRAZolam, 0.25 mg, Oral, HS (at bedtime) calcitriol, 0.25 mcg, Oral, Mo/We/Fr hydrALAZINE, 25 mg, Oral, BID HYDROmorphone, 0.5 mg, 0.5 mL, IV Push, q2hr, PRN HYDROmorphone, 1 mg, 1 mL, IV Push, q2hr, PRN meclizine, 25 mg, Oral, TID, PRN naloxone, 0.4 mg, 1 mL, IV Push, q2min, PRN Normal Saline Flush 0.9% injectable solution, 10 mL, IV Push, As Indicated, PRN Normal Saline Flush 0.9% injectable solution, 10 mL, IV Push, BID ondansetron, 4 mg, 2 mL, IV Push, q4hr, PRN pravastatin, 10 mg, Oral, HS (at bedtime) spironolactone, 25 mg, Oral, Daily verapamil 12 hour extended release, 180 mg, Oral, HS (at bedtime) Prescriptions No active Prescriptions Allergies No Known Medication Allergies Social History Tobacco Never (less than 100 in lifetime) Use:. Never smoker Family History Cancer: Sibling. Lab Results Microbiology No qualifying data available. Diagnostic Results left hip displace IT fracture Electronically signed by Chele Jordan MD 02/10/20 12:20 EDT [facility] Progress Noteon Pharmacy Progress Note Pharmacy Progress Note Pharmacy consulted to dose prophylactic Lovenox by Dr. Jordan, to start 02/10 @ 1300 per consult. Based on patient's est Clcr of 18.19 ml/min, entered Lovenox 30 mg subcutaneous q24hr starting 02/10 @ 1300. Thank you. Electronically signed by Karen Uriarte 02/10/20 14:21 EDT Noted patient ESRD on dialysis. Electronically signed by Karen Uriarte 02/10/20 18:33 EDT Correction, per hospitalist note today, patient is NOT on dialysis. Electronically signed by Karen Uriarte 02/10/20 18:35 EDT [facility] Phosphoruson 02-10-2020 Phosphate [Mass/Vol] 3.8 mg/dL Normal 2.5-4.6 [facility] Comment on above: Performed By: #### P HOS #### [facility] [address] [place] [address] Progress Note - [facility] Progress Note - Generic Subjective Patient reports pain in left hip Denies numbness and tingling No nausea, SOB, cough Denies abd pain, or urinary issues Review of Systems Ten point ROS completed, all other systems are negative Objective Physical Exam General: No acute distress, resting comfortably Mental Status: Alert and oriented x 3, conversant Lungs: Clear to auscultation, no wheezes or rhonchi, non-labored respiration, regular rate, on room air Heart: Normal rate, regular rhythm, S1S2 present. No murmur. No edema. Abdomen: Soft, non-tender, non-distended, normal bowel sounds MS: Limited ROM left lower extremity, moves all other extremities, neurovascularly intact BLE Skin: Intact, warm, dry, no ecchymosis Vitals & Measurements T: 36.4 ?C (Axillary) T: 37.2 ?C (Oral) T: 37.5 ?C (Skin) HR: 76 (Monitored) RR: 16 BP: 143/75 SpO2: 93% HT: 157 cm DOSE WT: 68 kg Additional Vitals Peripheral Pulse Rate: 77 bpm Lab Results Labs (Last four charted values) WBC H 11.1 (FEBRUARY 09) Hgb 12.4 (FEBRUARY 09) Hct 38.8 (FEBRUARY 09) Plt 198 (FEBRUARY 09) Na 138 (FEBRUARY 09) K H 5.2 (FEBRUARY 09) CO2 24 (FEBRUARY 09) Cl 102 (FEBRUARY 09) Cr H 1.87 (FEBRUARY 09) BUN H 41 (FEBRUARY 09) Mg 2.0 (FEBRUARY 09) Phos 3.8 (FEBRUARY 09) Microbiology No qualifying data available. Diagnostic Results Diagnostic Radiology No qualifying data available. Computed Tomography No qualifying data available. Ultrasound No qualifying data available. Magnetic Resonance Imaging No qualifying data available. Nuclear Medicine No qualifying data available. Medications Inpatient acetaminophen, 650 mg, Oral, q6hr, PRN acetaminophen, 650 mg, Oral, q6hr, PRN ALPRAZolam, 0.25 mg, Oral, HS (at bedtime) calcitriol, 0.25 mcg, Oral, Mo/We/Fr ceFAZolin Dextrose 5% with 0.45% NaCl 2000 mL, 2000 mL, IV hydrALAZINE, 50 mg, Oral, TID HYDROmorphone, 0.5 mg, 0.5 mL, IV Push, q2hr, PRN Lovenox, 30 mg, 0.3 mL, Subcutaneous, q24hr meclizine, 25 mg, Oral, TID, PRN naloxone, 0.4 mg, 1 mL, IV Push, q2min, PRN [place] 5 mg-325 mg oral tablet, 1 tabs, Oral, q4hr, PRN Normal Saline Flush 0.9% injectable solution, 10 mL, IV Push, BID Normal Saline Flush 0.9% injectable solution, 10 mL, IV Push, As Indicated, PRN ondansetron, 4 mg, 2 mL, IV Push, q4hr, PRN pravastatin, 10 mg, Oral, HS (at bedtime) verapamil 12 hour extended release, 180 mg, Oral, HS (at bedtime) Assessment/Plan Brief Hospital Course Summary Patient is an 84-year-old female that was admitted for a left intertrochanteric hip fracture following a fall. There is noted shortening without rotation left lower extremity. There is also a small scabbed area with dried blood on posterior superior scalp without sutures or vivi. Patient is scheduled for surgery on 02/10/[address] Jordan. Assessment 1. Intertrochanteric fracture of left hip -Management per Ortho -Surgery today -Pain control 2. Fall -PT OT 3. Laceration of head 4. Chronic kidney disease -Consult placed to nephrology at admission, Dr. Chew to see -At admission patient was thought to have been a dialysis patient, however she is not - Reported creatinine at [facility] was 2.42, creatinine significantly improved today at 1.87. -We will continue to monitor renal function 5. Hypertension -Moderately well controlled, continue verapamil -PRN agents may be necessary 6. Hyperlipidemia Discharge Barriers: - Left hip fracture, surgery today Code Status: Full Resuscitation Activity at baseline: -Ambulatory Anticipated Discharge Location: -Home with home health, or potentially a SNF Anticipated Discharge Date: - Will most likely require minimally an additional 48 hours. [1] Hospitalist History and Physical Note; Anshul Jack 02/09/2020 18:05 EDT Electronically signed by Sneha Martell 02/10/20 16:09 EDT [facility] APTTon 02-09-2020 aPTT Coag (Bld) [Time] 27.1 s [place] CBC Auto Differentialon 01-25 Basophils (Bld) [#/Vol] 10*3/uL [place] Basophils/100 WBC (Bld) 0 % 0 - 2 % [place] Differential Type NOT REPORTED [place] Eosinophils (Bld) [#/Vol] 0.10 10*3/uL [place] Eosinophils/100 WBC (Bld) 1 % 1 - 4 % [place] Erythrocyte distribution width (RBC) [Ratio] 14.0 % 11.8 - 14.4 % [place] Hematocrit (Bld) [Volume fraction] 41.9 % 36.3 - 47.1 % [place] Hemoglobin (Bld) [Mass/Vol] 13.0 g/dL 11.9 - 15.1 g/dL [place] Immature granulocytes (Bld) [#/Vol] 0 % 0 [place] Immature granulocytes (Bld) [#/Vol] 10*3/uL [place] Lymphocytes (Bld) [#/Vol] 2.13 10*3/uL [place] Lymphocytes/100 WBC (Bld) 26 % 24 - 43 % [place] MCH (RBC) [Entitic mass] 30.1 pg 25.2 - 33.5 pg [place] MCHC (RBC) [Mass/Vol] 31.0 g/dL 28.4 - 34.8 g/dL [place] MCV (RBC) [Entitic vol] 97.0 fL 82.6 - 102.9 fL [place] Monocytes (Bld) [#/Vol] 0.78 10*3/uL [place] Monocytes/100 WBC (Bld) 10 % 3 - 12 % [place] Platelet mean volume (Bld) [Entitic vol] 10.7 fL 8.1 - 13.5 fL [place] Platelets (Bld) [#/Vol] NOT REPORTED [place] Platelets (Bld) [#/Vol] 197 10*3/uL [place] RBC (Bld) [#/Vol] 4.32 10*6/uL 3.95 - 5.1 1 m/uL [place] RBC morphology finding Nom (Bld) NOT REPORTED [place] Segmented neutrophils/100 WBC (Bld) 63 % 36 - 65 % [place] Segs Absolute 5.15 [place] WBC (Bld) [#/Vol] 0.0 10*3/uL 0.0 per 10 0 WBC [place] WBC (Bld) [#/Vol] 8.2 10*3/uL [place] WBC Morphology NOT REPORTED [place] CERVICAL SPINE WO CONTRAS Ton 02-09-2020 [facility], [facility] Incoming Radiant Results From [facility] - 02/09/2020 12:08 PM EDT EXAMINATION: CT OF THE CERVICAL SPINE WITHOUT CONTRAST 02/09/2020 11:46 am TECHNIQUE: CT of the cervical spine was performed without the administration of intravenous contrast. Multiplanar reformatted images are provided for review. Dose modulation, iterative reconstruction, and/or weight based adjustment of the mA/kV was utilized to reduce the radiation dose to as low as reasonably achievable. COMPARISON: None. HISTORY: ORDERING SYSTEM PROVIDED HISTORY: fell over TECHNOLOGIST PROVIDED HISTORY: fell over FINDINGS: BONES/ALIGNMENT: The vertebral body heights are maintained. The facet joints are aligned. There is no acute fracture or malalignment. DEGENERATIVE CHANGES: There is multilevel degenerative disc disease with endplate osteophytosis and diffuse disc space narrowing. There is multilevel degenerative facet hypertrophy. There is degenerative anterolisthesis of C2 on C3 and C3 on C4. There is no significant canal stenosis or right bony foraminal narrowing. There is left bony foraminal narrowing at the C5-6 level. SOFT TISSUES: The posterior paraspinal soft tissues are unremarkable. The prevertebral soft tissues are unremarkable. The lung apices are without acute process. IMPRESSION: No acute fracture or malalignment of the cervical spine. Multilevel degenerative disc disease with associated uncovertebral and facet hypertrophy with left bony foraminal narrowing at C5-6. [place] EXAMINATION: CT OF T HE CERVICAL SPINE WITHOUT CONTRAST 02/09/2020 11:46 am TECHNIQUE: CT of the cervical spine was performed without the administration of intravenous contrast. Multiplanar reformatted images are provided for review. Dose modulation, iterative reconstruction, and/or weight based adjustment of the mA/kV was utilized to reduce the radiation dose to as low as reasonably achievable. COMPARISON: None. HISTORY: ORDERING SYSTEM PROVIDED HISTORY: fell over TECHNOLOGIST PROVIDED HISTORY: fell over FINDINGS: BONES/ALIGNMENT: The vertebral body heights are maintained. The facet joints are aligned. There is no acute fracture or malalignment. DEGENERATIVE CHANGES: There is multilevel degenerative disc disease with endplate osteophytosis and diffuse disc space narrowing. There is multilevel degenerative facet hypertrophy. There is degenerative anterolisthesis of C2 on C3 and C3 on C4. There is no significant canal stenosis or right bony foraminal narrowing. There is left bony foraminal narrowing at the C5-6 level. SOFT TISSUES: The posterior paraspinal soft tissues are unremarkable. The prevertebral soft tissues are unremarkable. The lung apices are without acute process. [place] No acute fracture or malalignment of the cervical spine. Multilevel degenerative disc disease with associated uncovertebral and facet hypertrophy with left bony foraminal narrowing at C5-6. [place] CT Head WO Contraston 2019 Dam[place], [facility] Incoming Radiant Results From [employer] - 02/09/2020 11:56 AM EDT EXAMINATION: CT OF THE HEAD WITHOUT CONTRAST 02/09/2020 11:46 am TECHNIQUE: CT of the head was performed without the administration of intravenous contrast. Dose modulation, iterative reconstruction, and/or weight based adjustment of the mA/kV was utilized to reduce the radiation dose to as low as reasonably achievable. COMPARISON: None. HISTORY: ORDERING SYSTEM PROVIDED HISTORY: fell over TECHNOLOGIST PROVIDED HISTORY: fell over FINDINGS: BRAIN/VENTRICLES: There is no acute intracranial hemorrhage, mass effect or midline shift. No abnormal extra-axial fluid collection. The mittal-white differentiation is maintained. Chronic mild periventricular and basal ganglia white matter changes noted. There is no evidence of hydrocephalus. ORBITS: The visualized portion of the orbits demonstrate no acute abnormality. SINUSES: The visualized paranasal sinuses and mastoid air cells demonstrate no acute abnormality. SOFT TISSUES/SKULL: Subtle left posterosuperior scalp injury. No underlying fracture. IMPRESSION: Left posterosuperior scalp injury without underlying fracture. No acute CT abnormality identified in the brain. [place] EXAMINATION: CT OF T HE HEAD WITHOUT CONTRAST 02/09/2020 11:46 am TECHNIQUE: CT of the head was performed without the administration of intravenous contrast. Dose modulation, iterative reconstruction, and/or weight based adjustment of the mA/kV was utilized to reduce the radiation dose to as low as reasonably achievable. COMPARISON: None. HISTORY: ORDERING SYSTEM PROVIDED HISTORY: fell over TECHNOLOGIST PROVIDED HISTORY: fell over FINDINGS: BRAIN/VENTRICLES: There is no acute intracranial hemorrhage, mass effect or midline shift. No abnormal extra-axial fluid collection. The mittal-white differentiation is maintained. Chronic mild periventricular and basal ganglia white matter changes noted. There is no evidence of hydrocephalus. ORBITS: The visualized portion of the orbits demonstrate no acute abnormality. SINUSES: The visualized paranasal sinuses and mastoid air cells demonstrate no acute abnormality. SOFT TISSUES/SKULL: Subtle left posterosuperior scalp injury. No underlying fracture. [place] Left posterosuperior scalp injury without underlying fracture. No acute CT abnormality identified in the brain. [place] Comprehensive Metabolic Pane l w/ Reflex to MGon 02-09-2020 Albumin [Mass/Vol] 4.2 g/dL 3.5 - 5.2 g/dL [place] Albumin/Globulin [Mass ratio] 1.6 {ratio} [place] ALP [Catalytic activity/Vol] 97 U/L 35 - 104 U/L [place] ALT [Catalytic activity/Vol] 16 U/L 5 - 33 U/L [place] Anion gap [Moles/Vol] 16 mmol/L 9 - 17 mmol/L [place] AST [Catalytic activity/Vol] 19 U/L <32 [place] Bilirubin Ql (U) 0.38 mg/dL 0.3 - 1.2 mg/dL [place] Bun/Cre Ratio 18 [place] Calcium [Mass/Vol] 9.3 mg/dL 8.6 - 10. 4 mg/dL [place] Chloride [Moles/Vol] 102 mmol/L 98 - 10 7 mmol/L [place] CO2 [Moles/Vol] 23 mmol/L 20 - 31 mmol/L [place] Creatinine [Mass/Vol] 2.42 mg/dL High 0.5 - 0.9 mg/dL [place] GFR 23 mL/min Low >60 [place] GFR Non- 19 mL/min Low >60 [place] Glucose [Mass/Vol] 132 mg/dL High 70 - 99 mg/dL [place] Interpretation and review of laboratory results Abnormal [place] Potassium [Moles/Vol] 4.5 mmol/L 3.7 - 5.3 mmol/L [place] Protein [Mass/Vol] 6.8 g/dL 6.4 - 8.3 g/dL [place] Sodium [Moles/Vol] 141 mmol/L 135 - 144 mmol/L [place] Urea nitrogen [Mass/Vol] 43 mg/dL High 8 - 23 mg/dL [place] History and Physicalon 02-08 History and Physical Chief Complaint Fall with left hip fracture. History of Present Illness Patient is a 84-year-old female being managed from [place] emergency emergency department for left intertrochanteric hip fracture and status post fall. Patient does have a past medical history that is significant for chronic kidney disease, hyperlipidemia, and hypertension. Patient reports this afternoon she was leaving her house and the wind caught the door and she had fallen. Patient also had a closed head injury noticed a small scabbed area left posterior superior scalp. Left leg noted to be shortened without rotation. Patient current denies headache, dizziness, blurred vision, chest pain, palpitations, dyspnea, cough, nausea, vomiting, and diarrhea. Emergency department course of treatment: Patient seen and evaluated for fall and left hip pain. Baseline labs were obtained revealing a creatinine of 2.42. Patient also had CT head, C-spine and chest x-ray that showed no acute findings. Left hip and pelvis x-ray shows a closed displaced intertrochanteric left hip fracture. Patient was medicated with fentanyl 25 mg, morphine 4 mg twice, and 4 mg of Zofran. PCP: Dr Dhaliwal Review of Systems Constitutional: No fevers, chills, sweats Eye: No recent visual problems ENMT: No ear pain, nasal congestion, sore throat Respiratory: No shortness of breath, cough Cardiovascular: No Chest pain, palpitations, syncope Gastrointestinal: No nausea, vomiting, diarrhea Genitourinary: No hematuria Geraldo/Lymph: Negative for bruising tendency, swollen lymph glands Endocrine: Negative for excessive thirst, excessive hunger Musculoskeletal: left hip pain Integumentary: No rash, pruritus, abrasions Psychiatric: No anxiety, depression Physical Exam Vitals & Measurements T: 36.9 ?C (Oral) RR: 16 BP: 148/70 SpO2: 96% DOSE WT: 68 kg General: Alert and oriented, well nourished, no acute distress. [place] Eye: PERRL, EOMI, normal conjunctiva. HENT: Normocephalic, clear tympanic membranes, normal hearing, moist oral mucosa, no scleral icterus, no sinus tenderness. Neck: Supple, non-tender, no carotid bruits, no JVD, no lymphadenopathy. Lungs: Clear to auscultation and percussion, non-labored respiration. Heart: Normal rate, regular rhythm, no murmur, gallop or edema. Abdomen: Soft, non-tender, non-distended, normal bowel sounds, no masses. Musculoskeletal: Shortening without rotation of the left lower ext. Skin: Skin is warm, dry and pink, no rashes or lesions. Neurologic: Awake, alert, and oriented X3, CN II-XII intact. Psychiatric: Cooperative, appropriate mood and affect. Additional Vitals Peripheral Pulse Rate: 58 bpm Low Assessment/Plan Brief Hospital Course Summary Patient is an 84-year-old female that was admitted for a left intertrochanteric hip fracture following a fall. There is noted shortening without rotation left lower extremity. There is also a small scabbed area with dried blood on posterior superior scalp without sutures or vivi. Assessment 1. Intertrochanteric fracture of left hip Consult orthopedic, Dr. Jordan. Bedrest. Physical and Occupational Therapy to evaluate and treat following surgery. Dilaudid 0.5 to 1 mg for moderate to severe pain. Zofran 4 mg every 4 hours as needed for nausea. nutritional services cook consult for discharge planning. 2. Fall See #1. 3. Laceration of head Scabbed. 4. Hypertension Continue hydrochlorothiazide and verapamil. 5. ESRD on dialysis Creatine in [place] was 2.42 Consult nephrology in the morning. 6. Hyperlipidemia Continue pravastatin. Medical Necessity for the hospitilization: Left intertrochanteric hip Fracture Complication Risk: Debility and . Activity at baseline: Independent Anticipated Discharge Location: alf facility Anticipated Discharge Date: Likely greater than 48 hours. 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, bilateral Hyperlipidemia Hypertension Historical No qualifying data Medications Home ALPRAZolam 0.25 mg oral tablet hydroCHLOROthiazide 25 mg oral tablet, 25 mg, 1 tabs, Oral, Daily meclizine 25 mg oral tablet meloxicam 7.5 mg oral tablet, 7.5 mg, 1 tabs, Oral, Daily pravastatin 10 mg oral tablet, 10 mg, 1 tabs, Oral, Daily verapamil 180 mg/12 hours oral tablet, extended release Inpatient hydroCHLOROthiazide, 25 mg, Oral, Daily pravastatin, 10 mg, Oral, Daily Prescriptions No active Prescriptions Allergies No Known Medication Allergies Social History Tobacco Never (less than 100 in lifetime) Use:. Never smoker Family History Cancer: Sibling. Lab Results No qualifying data available Microbiology No qualifying data available. Diagnostic Results Diagnostic Radiology No qualifying data available. Computed Tomography No qualifying data available. Ultrasound No qualifying data available. Magnetic Resonance Imaging No qualifying data available. Nuclear Medicine No qualifying data available. Electronically signed by Modesta CASTRO-Anshul DE 02/09/20 18:20 EDT [facility] Metabolic Panelon 02-09-2020 GFR/1.73 sq M predicted among non-blacks MDRD (S/P/Bld) [Vol rate/Area] [facility] [place], [place] Comment on above: Average GFR for 70 o r more years old: 75 mL/min/1.73sq m Chronic Kidney Disease: <60 mL/min/1.73sq m Kidney failure: <15 mL/min/1.73sq m eGFR calculated using average adult body mass. Additional eGFR calculator available at: http://www.Vetr/multiple_crcl_2012.htm Stage 1: Some kidney damage normal GFR Stage 2: Mild kidney damage GFR 60-89 Stage 3: Moderate kidney damage GFR 30-59 Stage 4: Severe kidney damage GFR 15-29 Stage 5: Severe kidney damage GFR <15 ESRD - chronic treatment by dialysis or transplant Progress Note-Nurseon 2019 Progress Note-Nurse This nurse spoke to Pt's daughter Maranda and Isaias. Updated on Pts condition and answered questions. They requested to speak to Dr. Jordan. This nurse spoke to Dr. Jordan and said he would contact them in the morning when he has a surgery time. Electronically signed by Fer Bautista 02/09/20 22:53 EDT [facility] Protime-INRon 02-09-2020 INR Coag (PPP) [Relative time] 1.0 {INR} [facility] [place], [place] PT Coag (PPP) [Time] 10.[address] [facility], [place] XR CHEST PORTABLEon 02-09-20 20 Dam[place], [facility] Incoming Radiant Results From [facility] - 02/09/2020 11:50 AM EDT EXAMINATION: ONE XRAY VIEW OF THE CHEST 02/09/2020 11:43 am COMPARISON: 09/27/2017 HISTORY: ORDERING SYSTEM PROVIDED HISTORY: for admission TECHNOLOGIST PROVIDED HISTORY: for admission FINDINGS: The lungs are without acute focal process. There is no effusion or pneumothorax. The cardiomediastinal silhouette is stable. The osseous structures are stable. IMPRESSION: No acute process. [facility] No acute process. [facility] EXAMINATION: ONE XRA Y VIEW OF THE CHEST 02/09/2020 11:43 am COMPARISON: 09/27/2017 HISTORY: ORDERING SYSTEM PROVIDED HISTORY: for admission TECHNOLOGIST PROVIDED HISTORY: for admission FINDINGS: The lungs are without acute focal process. There is no effusion or pneumothorax. The cardiomediastinal silhouette is stable. The osseous structures are stable. [facility] X[facility] HIP 2-3 VW W PELVIS LEFTo n 02-09-2020 Intertrochanteric le ft hip fracture. [facility], [facility] Incoming Radiant Results From [facility] - 02/09/2020 3:31 PM EDT EXAMINATION: ONE XRAY VIEW OF THE PELVIS AND TWO XRAY VIEWS LEFT HIP 02/09/2020 11:43 am COMPARISON: None. HISTORY: ORDERING SYSTEM PROVIDED HISTORY: fell over, broke hip likely TECHNOLOGIST PROVIDED HISTORY: fell over, broke hip likely FINDINGS: Mild osteopenia. Degenerative changes lower lumbar spine. Fecal stasis in the visualized colon. Mild degenerative changes of the hip joints. Mildly displaced intertrochanteric left hip fracture with foreshortening and angulation of the proximal femur. The femoral head remains within the acetabulum. There are vascular calcifications. IMPRESSION: Intertrochanteric left hip fracture. [facility] EXAMINATION: ONE XRA Y VIEW OF THE PELVIS AND TWO XRAY VIEWS LEFT HIP 02/09/2020 11:43 am COMPARISON: None. HISTORY: ORDERING SYSTEM PROVIDED HISTORY: fell over, broke hip likely TECHNOLOGIST PROVIDED HISTORY: fell over, broke hip likely FINDINGS: Mild osteopenia. Degenerative changes lower lumbar spine. Fecal stasis in the visualized colon. Mild degenerative changes of the hip joints. Mildly displaced intertrochanteric left hip fracture with foreshortening and angulation of the proximal femur. The femoral head remains within the acetabulum. There are vascular calcifications. [place] CBCon 02-02-2020 Erythrocyte distribution width (RBC) [Ratio] 14.1 % 11.8 - 14.4 % [place] Hematocrit (Bld) [Volume fraction] 44.3 % 36.3 - 47.1 % [place] Hemoglobin (Bld) [Mass/Vol] 13.4 g/dL 11.9 - 15.1 g/dL [place] MCH (RBC) [Entitic mass] 30.2 pg 25.2 - 33.5 pg [place] MCHC (RBC) [Mass/Vol] 30.2 g/dL 28.4 - 34.8 g/dL [place] MCV (RBC) [Entitic vol] 100.0 fL 82.6 - 102.9 fL [place] Platelet mean volume (Bld) [Entitic vol] 10.6 fL 8.1 - 13.5 fL [place] Platelets (Bld) [#/Vol] 231 10*3/uL [place] RBC (Bld) [#/Vol] 4.43 10*6/uL 3.95 - 5.1 1 m/uL [place] WBC (Bld) [#/Vol] 8.8 10*3/uL [place] WBC (Bld) [#/Vol] 0.0 10*3/uL 0.0 per 10 0 WBC [place] Creatinine, Random Urineon 0 02-02-2020 Creatinine, Ur 148.3 mg/dL 28 - 217 mg/dL [place] Magnesiumon 02-02-2020 Magnesium [Mass/Vol] 2.0 mg/dL 1.6 - 2 .6 mg/dL [place] Metabolic Panelon 02-02-2020 GFR/1.73 sq M predicted among non-blacks MDRD (S/P/Bld) [Vol rate/Area] [place] Comment on above: Stage 1: Some kidney damage normal GFR Stage 2: Mild kidney damage GFR 60-89 Stage 3: Moderate kidney damage GFR 30-59 Stage 4: Severe kidney damage GFR 15-29 Stage 5: Severe kidney damage GFR <15 ESRD - chronic treatment by dialysis or transplant Average GFR for 70 o r more years old: 75 mL/min/1.73sq m Chronic Kidney Disease: <60 mL/min/1.73sq m Kidney failure: <15 mL/min/1.73sq m eGFR calculated using average adult body mass. Additional eGFR calculator available at: http://www.Vetr/multiple_crcl_2012.htm PTH, [place] 02-02-2020 Interpretation and review of laboratory results Abnormal [place] Pth Intact 103.6 pg/mL High 15 - 65 pg/mL [place] Comment on above: SAMPLES FROM PATIENT S ROUTINELY RECEIVING HIGH DOSE BIOTIN THERAPY MAY SHOW FALSELY DEPRESSED RESULTS. ADDITIONAL INFORMATION MAY BE REQUIRED FOR DIAGNOSIS. Protein, urine, randomon Protein (U) [Mass/Vol] 21 mg/dL [place] Comment on above: No normal range esta blished. Renal Function Panelon 02-01 Albumin [Mass/Vol] 4.6 g/dL 3.5 - 5.2 g/dL [place] Anion gap [Moles/Vol] 15 mmol/L 9 - 17 mmol/L [place] Bun/Cre Ratio 17 [place] Calcium [Mass/Vol] 9.9 mg/dL 8.6 - 10. 4 mg/dL [place] Chloride [Moles/Vol] 102 mmol/L 98 - 10 7 mmol/L [place] CO2 [Moles/Vol] 23 mmol/L 20 - 31 mmol/L [place] Creatinine [Mass/Vol] 1.69 mg/dL High 0.5 - 0.9 mg/dL [place] GFR 35 mL/min Low >60 [place] GFR Non- 29 mL/min Low >60 [place] Glucose [Mass/Vol] 120 mg/dL High 70 - 99 mg/dL [place] Interpretation and review of laboratory results Abnormal [place] Phosphate [Mass/Vol] 2.7 mg/dL 2.6 - 4 .5 mg/dL [place] Potassium [Moles/Vol] 4.0 mmol/L 3.7 - 5.3 mmol/L [place] Sodium [Moles/Vol] 140 mmol/L 135 - 144 mmol/L [place] Urea nitrogen [Mass/Vol] 28 mg/dL High 8 - 23 mg/dL [place] Uric Acidon 02-02-2020 Urate [Mass/Vol] 5.5 mg/dL 2.4 - 5.7 mg/dL [place] Urinalysis with Microscopico n 02-02-2020 Amorphous, UA NOT REPORTED None [place] Bacteria, UA 3+ Abnormal None [place] Bilirubin Urine Negative NEGATIVE [place] Casts UA NOT REPORTED /LPF [place] Color, UA YELLOW YELLOW [place] Crystals, UA NOT REPORTED None /HPF [place] Epithelial Cells UA 10 TO 20 [place] Glucose, Ur Negative NEGATIVE [place] Interpretation and review of laboratory results Abnormal [place] Ketones Ql (U) Negative NEGATIVE [place] Leukocyte esterase Test strip Ql (U) Negative NEGATIVE [place] Mucus, UA NOT REPORTED None [place] Nitrite, Urine Positive Abnormal NEGATIVE [place] Other Observations UA NOT REPORTED NOT REQ. M [place], [place] pH, UA 5.5 [place] Protein (U) [Mass/Vol] Negative NEGATIVE [place] RBC (U) [#/Vol] None [place] Renal Epithelial, UA NOT REPORTED 0 /HPF [place] Specific [place], UA 1.020 [place], [place] Trichomonas, UA NOT REPORTED None [place] Turbidity UA CLEAR CLEAR [place] Urinalysis Comments NOT REPORTED [place] Urine Hgb Negative NEGATIVE [place] Urobilinogen, Urine Normal Normal [place] WBC, UA 2 TO 5 [place] Yeast, UA NOT REPORTED None [place], [place] CBCon 10-30-2019 Erythrocyte distribution width (RBC) [Ratio] 12.9 % 11.8 - 14.4 % [employer] Phone: Hematocrit (Bld) [Volume fraction] 42.8 % 36.3 - 47.1 % [employer] Phone: Hemoglobin (Bld) [Mass/Vol] 12.9 g/dL 11.9 - 15.1 g/dL [employer]: MCH (RBC) [Entitic mass] 30.8 pg 25.2 - 33.5 pg [employer]: MCHC (RBC) [Mass/Vol] 30.1 g/dL 28.4 - 34.8 g/dL [employer]: MCV (RBC) [Entitic vol] 102.1 fL 82.6 - 102.9 fL [employer] Phone: Platelet mean volume (Bld) [Entitic vol] 11.0 fL 8.1 - 13.5 fL [employer]: Platelets (Bld) [#/Vol] 210 10*3/uL [employer]: RBC (Bld) [#/Vol] 4.19 10*6/uL 3.95 - 5.1 1 m/uL [employer]: WBC (Bld) [#/Vol] 7.9 10*3/uL [employer]: WBC (Bld) [#/Vol] 0.0 10*3/uL 0.0 per 10 0 WBC [employer]: Creatinine, Random Urineon 0 10-30-2019 Creatinine, Ur 173.2 mg/dL 28 - 217 mg/dL [employer]: Magnesiumon 10-30-2019 Magnesium [Mass/Vol] 2.2 mg/dL 1.6 - 2 .6 mg/dL [employer]: Metabolic Panelon 10-30-2019 GFR/1.73 sq M predicted among non-blacks MDRD (S/P/Bld) [Vol rate/Area] [employer]: Comment on above: Average GFR for 70 o r more years old: 75 mL/min/1.73sq m Chronic Kidney Disease: <60 mL/min/1.73sq m Kidney failure: <15 mL/min/1.73sq m eGFR calculated using average adult body mass. Additional eGFR calculator available at: [email or web address] Stage 1: Some kidney damage normal GFR Stage 2: Mild kidney damage GFR 60-89 Stage 3: Moderate kidney damage GFR 30-59 Stage 4: Severe kidney damage GFR 15-29 Stage 5: Severe kidney damage GFR <15 ESRD - chronic treatment by dialysis or transplant PTH, [place] 10-30-2019 Interpretation and review of laboratory results Abnormal [employer] Phone: Pth Intact 121.6 pg/mL High 15 - 65 pg/mL [employer] Phone: Comment on above: SAMPLES FROM PATIENT S ROUTINELY RECEIVING HIGH DOSE BIOTIN THERAPY MAY SHOW FALSELY DEPRESSED RESULTS. ADDITIONAL INFORMATION MAY BE REQUIRED FOR DIAGNOSIS. Protein, urine, randomon Protein (U) [Mass/Vol] 22 mg/dL [facility] Phone: Comment on above: No normal range esta blished. Renal Function Panelon 10-30 Albumin [Mass/Vol] 4.4 g/dL 3.5 - 5.2 g/dL [employer] Phone: Anion gap [Moles/Vol] 13 mmol/L 9 - 17 mmol/L [employer] Phone: Bun/Cre Ratio 17 [employer] Phone: Calcium [Mass/Vol] 9.6 mg/dL 8.6 - 10. 4 mg/dL [employer] Phone: Chloride [Moles/Vol] 105 mmol/L 98 - 10 7 mmol/L [employer] Phone: CO2 [Moles/Vol] 25 mmol/L 20 - 31 mmol/L [employer] Phone: Creatinine [Mass/Vol] 1.72 mg/dL High 0.5 - 0.9 mg/dL [employer] Phone: GFR 34 mL/min Low >60 [employer] Phone: GFR Non- 28 mL/min Low >60 [employer] Phone: Glucose [Mass/Vol] 122 mg/dL High 70 - 99 mg/dL [employer] Phone: Interpretation and review of laboratory results Abnormal [employer] Phone: Phosphate [Mass/Vol] 3.5 mg/dL 2.6 - 4 .5 mg/dL [employer] Phone: Potassium [Moles/Vol] 4.7 mmol/L 3.7 - 5.3 mmol/L [employer] Phone: Sodium [Moles/Vol] 143 mmol/L 135 - 144 mmol/L [employer] Phone: Urea nitrogen [Mass/Vol] 30 mg/dL High 8 - 23 mg/dL [employer] Phone: Uric Acidon 10-30-2019 Urate [Mass/Vol] 5.2 mg/dL 2.4 - 5.7 mg/dL [employer] Phone: Urinalysis with Microscopico n 10-30-2019 Amorphous, UA NOT REPORTED None [employer] Phone: Bacteria, UA 3+ Abnormal None [employer] Phone: Bilirubin Urine Negative NEGATIVE [employer] Work Phone: Casts UA NOT REPORTED /LPF [employer] Work Phone: Color, UA YELLOW YELLOW [employer] Work Phone: Crystals UA NOT REPORTED None /HPF [employer] Work Phone: Epithelial Cells UA 10 TO 20 [employer] Work Phone: Glucose, Ur Negative NEGATIVE [employer] Phone: Interpretation and review of laboratory results Abnormal [employer] Work Phone: Ketones Ql (U) Negative NEGATIVE [employer] Phone: Leukocyte esterase Test strip Ql (U) TRACE Abnormal NEGATIVE [employer] Phone: Mucus, UA NOT REPORTED None [employer] Work Phone: Nitrite, Urine Negative NEGATIVE [employer] Phone: Other Observations UA NOT REPORTED NOT REQ. [facility] Work Phone: pH, UA 5.0 [employer] Work Phone: Protein (U) [Mass/Vol] Negative NEGATIVE [employer] [place] Work Phone: RBC (U) [#/Vol] 0 TO 2 [employer] Work Phone: Renal Epithelial, Urine NOT REPORTED 0 /HPF [employer] Work Phone: Specific [place], UA 1.020 [employer] Work Phone: Trichomonas, UA NOT REPORTED None [facility] Phone: Turbidity UA SLIGHTLY CLOUDY Abnormal CLEAR [employer] Work Phone: Urinalysis Comments NOT REPORTED [facility] [employer] Work Phone: Urine Hgb Negative NEGATIVE [facility] Phone: Urobilinogen, Urine Normal Normal [facility] Phone: WBC, UA 5 TO 10 [facility] Phone: Yeast, UA NOT REPORTED None [employer] Phone: - [employer] Phone: CBCon 08-11-2019 Erythrocyte distribution width (RBC) [Ratio] 13.8 % 11.8 - 14.4 % [place] Hematocrit (Bld) [Volume fraction] 40.5 % 36.3 - 47.1 % [place] Hemoglobin (Bld) [Mass/Vol] 12.5 g/dL 11.9 - 15.1 g/dL [place] MCH (RBC) [Entitic mass] 30.9 pg 25.2 - 33.5 pg [place] MCHC (RBC) [Mass/Vol] 30.9 g/dL 28.4 - 34.8 g/dL [place] MCV (RBC) [Entitic vol] 100.2 fL 82.6 - 102.9 fL [place] Platelet mean volume (Bld) [Entitic vol] 10.5 fL 8.1 - 13.5 fL [place] Platelets (Bld) [#/Vol] 245 10*3/uL [place] RBC (Bld) [#/Vol] 4.04 10*6/uL 3.95 - 5.1 1 m/uL [place] WBC (Bld) [#/Vol] 7.1 10*3/uL [place] WBC (Bld) [#/Vol] 0.0 10*3/uL 0.0 per 10 0 WBC [place] Creatinine Clearanceon 08-11 Creatinine [Mass/Vol] 54.7 mg/dL 28 - 2 17 mg/dL [place] Creatinine [Mass/Vol] 1.8 mg/dL High 0.5 - 0.9 mg/dL [place] Creatinine Clearance 25.8 [place] Interpretation and review of laboratory results Abnormal [place] Length Of Collection 24 h [place], [place] Patient Height 155 cm [place] Volume 1175 mL [place] Creatinine, Random Urineon 10-11-2018 Creatinine, Ur 18.5 mg/dL Low 28 - 217 mg/dL [place] Interpretation and review of laboratory results Abnormal [place] Magnesiumon 08-11-2019 Magnesium [Mass/Vol] 1.9 mg/dL 1.6 - 2 .6 mg/dL [place] Metabolic Panelon 08-11-2019 GFR/1.73 sq M predicted among non-blacks MDRD (S/P/Bld) [Vol rate/Area] [place] Comment on above: Average GFR for 70 o r more years old: 75 mL/min/1.73sq m Chronic Kidney Disease: <60 mL/min/1.73sq m Kidney failure: <15 mL/min/1.73sq m eGFR calculated using average adult body mass. Additional eGFR calculator available at: [email or web address] Stage 1: Some kidney damage normal GFR Stage 2: Mild kidney damage GFR 60-89 Stage 3: Moderate kidney damage GFR 30-59 Stage 4: Severe kidney damage GFR 15-29 Stage 5: Severe kidney damage GFR <15 ESRD - chronic treatment by dialysis or transplant PTH, [place] 08-11-2019 Interpretation and review of laboratory results Abnormal [place] Pth Intact 99.15 pg/mL High 15 - 65 pg/mL [place] Comment on above: SAMPLES FROM PATIENT S ROUTINELY RECEIVING HIGH DOSE BIOTIN THERAPY MAY SHOW FALSELY DEPRESSED RESULTS. ADDITIONAL INFORMATION MAY BE REQUIRED FOR DIAGNOSIS. Protein, urine, randomon Protein (U) [Mass/Vol] mg/dL mg/dL [place] Comment on above: No normal range esta blished. Protein, urine, timedon 07-28 Hours Collected 24 h [place] Protein (U) [Mass/Vol] 5 mg/dL [place] Volume 1175 mL [place] Comment on above: CORRECTED ON 08/11 A T 1745: PREVIOUSLY REPORTED 1175 ML Renal Function Panelon 08-11 Albumin [Mass/Vol] 4.3 g/dL 3.5 - 5.2 g/dL [place] Anion gap [Moles/Vol] 15 mmol/L 9 - 17 mmol/L [place] Bun/Cre Ratio 16 [place] Calcium [Mass/Vol] 9.2 mg/dL 8.6 - 10. 4 mg/dL [place] Chloride [Moles/Vol] 100 mmol/L 98 - 10 7 mmol/L [place] CO2 [Moles/Vol] 22 mmol/L 20 - 31 mmol/L [place] Creatinine [Mass/Vol] 1.8 mg/dL High 0.5 - 0.9 mg/dL [place] GFR 33 mL/min Low >60 [place] GFR Non- 27 mL/min Low >60 [place] Glucose [Mass/Vol] 110 mg/dL High 70 - 99 mg/dL [place] Interpretation and review of laboratory results Abnormal [place] Phosphate [Mass/Vol] 2.8 mg/dL 2.6 - 4 .5 mg/dL [place] Potassium [Moles/Vol] 4.1 mmol/L 3.7 - 5.3 mmol/L [place] Sodium [Moles/Vol] 137 mmol/L 135 - 144 mmol/L [place] Urea nitrogen [Mass/Vol] 29 mg/dL High 8 - 23 mg/dL [place] TSH without Reflexon 019 TSH Qn 3.22 m[IU]/L [place] US RENAL COMPLETEon 08-11-20 19 1. Suboptimal examination due to patient condition. The left kidney is incompletely seen. 2. Mild right-sided hydronephrosis. Distal obstruction cannot be excluded. 3. 5 mm nonshadowing echogenic focus within the right renal parenchyma possibly representing a small angiomyolipoma. 4. Questionable stone inferior aspect the left kidney measures 6.5 mm. RECOMMENDATIONS: Kidneys can be further evaluated by CT for confirmation of the above findings. [place] EXAMINATION: RETROPERITONEAL ULTRASOUND OF THE KIDNEYS AND URINARY BLADDER 08/11/2019 COMPARISON: None HISTORY: ORDERING SYSTEM PROVIDED HISTORY: Chronic kidney disease, stage IV (severe) ([facility]) FINDINGS: Kidneys: Suboptimal evaluation due to patient condition. The right kidney measures 8.4 cm in length and the left kidney measures 8.4 cm in length. Right kidney: An echogenic focus identified within the right renal parenchyma measuring 5 mm which is not appear to shadow likely a small angiomyolipoma. No cortical thinning. No shadowing stone. Mild hydronephrosis. Left kidney: Incompletely visualized. No definitive hydronephrosis is seen. Questionable stone inferior aspect of the left kidney measuring 6.5 mm. Bladder: Unremarkable appearance of the bladder. No significant post void residual. [place], [facility] Incoming Radiant Results From [facility] - 08/11/2019 12:53 PM EST EXAMINATION: RETROPERITONEAL ULTRASOUND OF THE KIDNEYS AND URINARY BLADDER 08/11/2019 COMPARISON: None HISTORY: ORDERING SYSTEM PROVIDED HISTORY: Chronic kidney disease, stage IV (severe) ([facility]) FINDINGS: Kidneys: Suboptimal evaluation due to patient condition. The right kidney measures 8.4 cm in length and the left kidney measures 8.4 cm in length. Right kidney: An echogenic focus identified within the right renal parenchyma measuring 5 mm which is not appear to shadow likely a small angiomyolipoma. No cortical thinning. No shadowing stone. Mild hydronephrosis. Left kidney: Incompletely visualized. No definitive hydronephrosis is seen. Questionable stone inferior aspect of the left kidney measuring 6.5 mm. Bladder: Unremarkable appearance of the bladder. No significant post void residual. IMPRESSION: 1. Suboptimal examination due to patient condition. The left kidney is incompletely seen. 2. Mild right-sided hydronephrosis. Distal obstruction cannot be excluded. 3. 5 mm nonshadowing echogenic focus within the right renal parenchyma possibly representing a small angiomyolipoma. 4. Questionable stone inferior aspect the left kidney measures 6.5 mm. RECOMMENDATIONS: Kidneys can be further evaluated by CT for confirmation of the above findings. [place] Uric Acidon 08-11-2019 Urate [Mass/Vol] 5.4 mg/dL 2.4 - 5.7 mg/dL [place] Urinalysison 08-11-2019 Protein (U) [Mass/Vol] NOT REPORTED mg/X h [place] Urinalysis with Microscopico n 08-11-2019 Amorphous, UA NOT REPORTED None [place] Bacteria, UA TRACE Abnormal None [place] Bilirubin Urine Negative NEGATIVE [place] Casts UA NOT REPORTED /LPF [place] Color, UA YELLOW YELLOW [place] Crystals UA NOT REPORTED None /HPF [place] Epithelial Cells UA 0 TO 2 [place] Glucose, Ur Negative NEGATIVE [place] Interpretation and review of laboratory results Abnormal [place] Ketones Ql (U) Negative NEGATIVE [place] Leukocyte esterase Test strip Ql (U) Negative NEGATIVE [place] Mucus, UA NOT REPORTED None [place] Nitrite, Urine Negative NEGATIVE [place] Other Observations UA NOT REPORTED NOT REQ. M [place] pH, UA 5.5 [place] Protein (U) [Mass/Vol] Negative NEGATIVE [place] RBC (U) [#/Vol] 0 TO 2 [place] Renal Epithelial, Urine NOT REPORTED 0 /HPF [place] Specific [place], UA <1.005 Low [place] Trichomonas, UA NOT REPORTED None [place] Turbidity UA CLEAR CLEAR [place] Urinalysis Comments NOT REPORTED [place] Urine Hgb Negative NEGATIVE [place] Urobilinogen, Urine Normal Normal [place] WBC, UA 0 TO 2 [place] Yeast, UA NOT REPORTED None [place] Vitamin B12 & Folateon 08-11 Cobalamin (Vitamin B12) [Mass/Vol] 391 pg/mL 232 - 1245 pg/mL [place] Folate 7.7 ng/mL >4.8 [place] Vital Signs Date Time Vital Sign Value Performing Clinician Facility 09-09-2023 13:00-0500 Diastolic blood pressure 88 mm[Hg] Brina Cordero Other [facility] [employer] Other 09-09-2023 13:00-0500 Respiratory rate 12 /min Brina Cordero Other [facility] [employer] Other 09-09-2023 13:00-0500 Systolic blood pressure 132 mm[Hg] Brina Cordero Other [facility] [employer] Other 08-31-2023 22:45-0500 Diastolic blood pressure 94 mm[Hg] MD Destiny Irwin Work Phone: [facility] 08-31-2023 22:45-0500 Heart rate 89 /min MD Destiny Irwin Work Phone: [facility] 08-31-2023 22:45-0500 Respiratory rate 18 /min MD Destiny Irwin Work Phone: [facility] 08-31-2023 22:45-0500 SaO2% (BldA) [Mass fraction] 97 % MD Destiny Irwin Work Phone: [facility] 08-31-2023 22:45-0500 Systolic blood pressure 165 mm[Hg] MD Destiny Irwin Work Phone: [facility] 08-31-2023 18:28-0500 Body height 154.94 cm MD Destiny Irwin Work Phone: [facility] 08-31-2023 18:28-0500 Body weight 59.87 kg MD Destiny Irwin Work Phone: [facility] 08-31-2023 18:27-0500 Body temperature 98.2 [degF] MD Destiny Irwin Work Phone: [facility] 06-11-2023 13:00-0400 Diastolic blood pressure 72 mm[Hg] Brina Cordero Other [employer] Other 06-11-2023 13:00-0400 Respiratory rate 12 /min Brina Roxie Other [employer] Other 06-11-2023 13:00-0400 Systolic blood pressure 178 mm[Hg] Brina Roxie Other [employer] Other 09-12-2020 11:04-0500 BP Diastolic 63 mm[Hg] [facility] [place] [facility] [place] Comment on above: 2nd reading 09-12-2020 11:04-0500 BP Systolic 139 mm[Hg] [facility] [place] [facility] [place] Comment on above: 2nd reading 09-12-2020 11:04-0500 Pulse (Heart Rate) 65 /min [facility] [place] 09-12-2020 11:02-0500 Body Temperature 96.1 [degF] [facility] [place] 09-12-2020 11:02-0500 Respiratory Rate 20 /min [facility] [place] 08-15-2020 10:48-0500 Body Temperature 96.69 [degF] [facility] [place] [place] 08-15-2020 10:48-0500 BP Diastolic 90 mm[Hg] [facility] [place] [facility] [place] 08-15-2020 10:48-0500 BP Systolic 147 mm[Hg] [facility] [place] [facility] [place] 08-15-2020 10:48-0500 Pulse (Heart Rate) 69 /min [facility] [place] 08-15-2020 10:48-0500 Respiratory Rate 22 /min [facility] [place] 07-18-2020 10:55-0400 Body Temperature 97.81 [degF] [facility] [place] [place] 07-18-2020 10:55-0400 BP Diastolic 71 mm[Hg] Glenn [facility] [place] [facility] [place] 07-18-2020 10:55-0400 BP Systolic 133 mm[Hg] [facility] [place] 07-18-2020 10:55-0400 Pulse (Heart Rate) 79 /min [facility] [place] 07-18-2020 10:55-0400 Respiratory Rate 16 /min [facility] [place] 06-27-2020 11:04-0400 BP Diastolic 71 mm[Hg] [facility] [place] 06-27-2020 11:04-0400 BP Systolic 123 mm[Hg] [facility] [place] 06-27-2020 11:04-0400 Pulse (Heart Rate) 84 /min [facility] [place] 06-27-2020 11:04-0400 Respiratory Rate 22 /min [facility] [place] 05-30-2020 13:10-0400 Body Temperature 97.59 [degF] [facility] [place] 05-30-2020 13:10-0400 BP Diastolic 86 mm[Hg] [facility] [place] 05-30-2020 13:10-0400 BP Systolic 136 mm[Hg] [facility] [place] 05-30-2020 13:10-0400 Pulse (Heart Rate) 108 /min [facility] [place] 05-30-2020 13:10-0400 Respiratory Rate 20 /min [facility] [place] 05-15-2020 14:09-0400 Pulse Oximetry 97 % [facility] [place] 05-15-2020 08:52-0400 Body Temperature 98.2 [degF] [facility] [place] 05-15-2020 08:52-0400 BP Diastolic 58 mm[Hg] [facility] [place] 05-15-2020 08:52-0400 BP Systolic 118 mm[Hg] [facility] [place] 05-15-2020 08:52-0400 Pulse (Heart Rate) 68 /min [facility] [place] 05-15-2020 08:52-0400 Respiratory Rate 16 /min [facility] [place] 05-10-2020 10:40-0400 BMI (Body Mass Index) 27.21 kg/m2 [facility] 05-10-2020 10:40-0400 Body weight 69.67 kg Chele Lagos [facility] , [place] 05-10-2020 10:40-0400 Height 160 cm Chele Lagos [facility] [place] 04-06-2020 07:53-0400 Body Temperature 97 [degF] Kian Simon [facility] [place] 04-06-2020 07:53-0400 BP Diastolic 80 mm[Hg] [facility] [place] [place] 04-06-2020 07:53-0400 BP Systolic 120 mm[Hg] [facility] [place] [place] 04-06-2020 07:53-0400 Pulse (Heart Rate) 66 /min Kian Simon [facility], [place] 04-06-2020 07:53-0400 Pulse Oximetry 96 % [facility] [place] [place] 04-06-2020 07:53-0400 Respiratory Rate 16 /min Kian Ernst [facility], [place] 04-06-2020 04:30-0400 BMI (Body Mass Index) 30.86 kg/m2 Kian Ernst [facility], [place] 04-06-2020 04:30-0400 Body weight 71.67 kg Kian Ernst [facility], [place] 04-03-2020 07:32-0400 Height 152.4 cm Kian Ernst [facility], [place] 03-23-2020 17:22-0400 BP Diastolic 82 mm[Hg] [facility] [place] 03-23-2020 17:22-0400 BP Systolic 137 mm[Hg] [facility] [place] 03-23-2020 17:22-0400 Pulse [facility]ximetry 99 % [facility] [place] 03-23-2020 15:09-0400 Body Temperature 98.4 [degF] [facility] [place] 03-23-2020 15:09-0400 Pulse (Heart Rate) 76 /min [facility], [place] 03-23-2020 15:07-0400 BMI (Body Mass Index) 31.05 kg/m2 Forest Simon [place], [place] 03-23-2020 15:07-0400 Body weight 72.12 kg Forest Baer [place], [place] 03-23-2020 15:07-0400 Height 152.4 cm Forest Baer [place] 03-23-2020 15:07-0400 Respiratory Rate 18 /min [facility], [place] 02-09-2020 15:52-0400 BP Diastolic 50 mm[Hg] [place] 02-09-2020 15:52-0400 BP Systolic 136 mm[Hg] [place] 02-09-2020 15:52-0400 Pulse (Heart Rate) 54 /min [place] 02-09-2020 15:52-0400 Pulse Oximetry 98 % [place] 02-09-2020 15:52-0400 Respiratory Rate 18 /min [facility] [place] 02-09-2020 11:10-0400 Body Temperature 98.6 [degF] [facility] [place] 02-09-2020 11:10-0400 Body weight 68.04 kg [place] 08-11-2019 15:08-0500 Body weight 67 kg [place] Encounters Encounter Date Encounter Type Care Provider Facility Start: 09-23-2023 Encounter for other preprocedural examination BRINA CORDERO [facility] Start: 09-23-2023 End: 09-23-2023 ambulatory BRINA CORDERO Facility:[facility] Start: 09-23-2023 End: 09-24-2023 ambulatory BRINA CORDERO Facility:[facility] Start: 09-23-2023 End: 09-24-2023 ambulatory BRINA CORDERO Facility:[facility] Start: 09-17-2023 ambulatory BRINA CORDERO Facility :[facility] Start: 09-09-2023 End: 09-09-2023 ambulatory Brina Cordero Other [employer] Other Start: 09-09-2023 Transitional care janina singh srvc 14 day discharge Brina Mclean Start: 09-08-2023 Orders Only Ricco Garland MD Work Phone: Urology Comment on above: Hydronephrosis with urinary obstruction due to renal calculus (Primary Dx) Start: 09-07-2023 End: 09-08-2023 ambulatory RICCO GARLAND Facility:[facility] Start: 09-06-2023 ambulatory Harsh Careyi ty:OSWALDO Galvan Start: 09-03-2023 End: 09-04-2023 ambulatory Justino Renuka [facility] [employer] Other Start: 09-03-2023 Telephone encounter Brina Cordero [facility] Start: 09-01-2023 End: 09-03-2023 Evaluation and management of inpatient Brina Cordero Facility:[facility] Start: 08-31-2023 Evaluation and manag ement of inpatient MD Destiny Irwin Work Phone: [facility] Work Phone: Start: 08-31-2023 End: 08-31-2023 ambulatory Brina Cordero Other [employer] Other Start: 08-31-2023 Telephone encounter Brina Cordero [facility] Start: 08-30-2023 End: 08-30-2023 ambulatory Brina Cordero Other [employer] Other Start: 08-30-2023 Telephone encounter Brina Cordero [facility] Start: 08-26-2023 End: 08-27-2023 ambulatory Harsh CLAYTON [employer] Other Start: 08-26-2023 Telephone encounter Brina Cordero [facility] Start: 08-24-2023 End: 08-24-2023 ambulatory Brina Cordero Other [employer] Other Start: 08-24-2023 Telephone encounter Brina Cordero [facility] Start: 08-23-2023 End: 08-23-2023 ambulatory Brina Cordero Other [employer] Other Start: 08-23-2023 Telephone encounter Brina Cordero [facility] Start: 08-03-2023 End: 08-03-2023 ambulatory Brina Cordero Other [employer] Other Start: 08-03-2023 Telephone encounter Brina Cordero [facility] Start: 08-02-2023 End: 08-02-2023 ambulatory Brina Cordero Other [employer] Other Start: 08-02-2023 Telephone encounter Brina Cordero [facility] Start: 07-21-2023 End: 07-21-2023 ambulatory Brina Cordero Other [employer] Other Start: 07-21-2023 Telephone encounter Brina Cordero [facility] Start: 07-19-2023 End: 07-19-2023 ambulatory Brina Cordero Other [employer] Other Start: 07-19-2023 Telephone encounter Brina Cordero [facility] Start: 07-05-2023 End: 07-05-2023 ambulatory Brina Cordero Other [employer] Other Start: 07-05-2023 Telephone encounter Brina Cordero [facility] Start: 06-11-2023 End: 06-11-2023 ambulatory Brina Cordero Other [employer] Other Start: 06-11-2023 Patient encounter procedure Brina Cordero [facility] Start: 05-26-2023 (DC) [facility] [place] Start: 05-26-2023 End: 05-26-2023 ambulatory Brina Cordero Other [employer] Other Start: 10-14-2021 End: 10-15-2021 ambulatory [facility] Start: 10-03-2021 End: 10-04-2021 ambulatory JUSTINO Simon [facility] Start: 06-24-2021 End: 06-25-2021 ambulatory JUSTINO Simon [facility] Start: 06-24-2021 End: 06-24-2021 Subsequent hospital visit by physician Justino Dhaliwal DO Work Phone: [facility] Start: 04-12-2021 End: 04-12-[address] ABHILASH HERNANDEZ Facility: Start: 02-20-2021 End: 02-21-2021 ambulatory JUSTINO Simon [facility] Start: 02-20-2021 End: 02-20-2021 Subsequent hospital visit by physician Justino Dhaliwal DO Work Phone: [facility] Start: 12-05-2020 End: 12-06-2020 ambulatory DILAN Phillipsy [facility] Start: 12-05-2020 End: 12-05-2020 Subsequent [facility] Start: 11-07-2020 End: 11-08-2020 ambulatory JUSTINO Simon [facility] Start: 11-07-2020 End: 11-07-2020 Subsequent hospital visit [facility] Start: 11-06-2020 End: 11-07-2020 ambulatory JUSTINO Simon [facility] Start: 11-06-2020 End: 11-06-2020 Subsequent hospital visit by physician Justino Dhaliwal [facility] Start: 10-30-2020 End: 10-31-2020 ambulatory JUSTINO Simon [facility] Start: 10-30-2020 End: 10-30-2020 Subsequent hospital visit by physician Justino Dhaliwal [facility] Start: 10-23-2020 End: 10-24-2020 [facility] Start[facility] 10-23-2020 End: 10-23-2020 Subsequent hospital visit by physician [facility] Start: 09-26-2020 End: 09-26-2020 Subsequent hospital visit by physician [facility] Start: 09-25-2020 End: 09-25-2020 Subsequent hospital visit by physician Jsutino Dhaliwal [facility] Start: 09-18-2020 End: 09-18-2020 Subsequent hospital visit by physician [facility] Start: 09-12-2020 End: 09-12-2020 Subsequent hospital visit by physician Glenn Martínez Work Phone: [facility] Comment on above: Decubitus ulcer of h eel, left, unstageable (HCC) (Primary Dx) Start: 09-11-2020 End: 09-11-2020 Subsequent hospital visit by physician Just[facility] Laboratory Start: 09-06-2020 End: 09-06-2020 Subsequent [facility] Start: 09-05-2020 End: 09-05-2020 Subsequent hospital visit [facility] Start: 08-28-2020 End: 08-28-2020 Subsequent hospital visit [facility] Start: 08-27-2020 End: 08-27-2020 Subsequent hospital visit [facility] Start: 08-21-2020 End: 08-21-2020 Subsequent [facility] Start: 08-16-2020 End: 08-16-2020 Subsequent hospital visit [facility] Start: 08-15-2020 End: 08-15-2020 Subsequent hospital visit by physician Glenn Martínez Work Phone: [facility] Comment on above: Decubitus ulcer of h eel, left, unstageable (HCC) (Primary Dx) Start: 08-09-2020 End: 08-09-2020 Subsequent [facility] Start: 07-18-2020 End: 07-18-2020 Subsequent hospital visit by physician Glenn Martínez Work Phone: [facility] Comment on above: Decubitus ulcer of h eel, left, unstageable (HCC) (Primary Dx); Pressure ulcer of left calf, stage 3 (HCC) Start: 07-18-2020 End: 07-18-2020 Subsequent hospital visit by physician Justino Dhaliwal [facility] Start: 07-09-2020 End: 07-09-2020 Subsequent hospital visit by physician Justino Dhaliwal [facility] Start: 07-01-2020 End: 07-01-2020 Subsequent hospital visit by physician Justino Dhaliwal [facility] Start: 06-27-2020 End: 06-27-2020 Subsequent hospital visit by physician Glenn Martínez Work Phone: [facility] Comment on above: Decubitus ulcer of h eel, left, unstageable (HCC) (Primary Dx); Pressure injury of left heel, stage 3 (HCC) Start: 06-25-2020 End: 06-25-2020 Subsequent hospital visit by physician Justino Dhaliwal [facility] Start: 06-24-2020 End: 06-24-2020 Subsequent hospital visit by physician Justino Dhaliwal [facility] Start: 06-19-2020 End: 06-19-2020 Subsequent hospital visit by physician Justino Dhaliwal [facility] Start: 06-19-2020 End: 06-19-2020 Subsequent hospital visit by physician Justino Dhaliwal [facility] Start: 06-18-2020 End: 06-18-2020 Subsequent hospital visit by physician Justino Dhaliwal [facility] Start: 06-13-2020 End: 06-13-2020 Subsequent [facility] Comment on above: Arrived Decubitus ulcer of h eel, left, unstageable (HCC) (Primary Dx) Start: 06-12-2020 End: 06-12-2020 Subsequent hospital visit by physician Justino Dhaliwal [facility] Laboratory Start: 06-06-2020 End: 06-06-2020 Subsequent hospital visit by physician Justino Dhaliwal [facility] Start: 05-30-2020 End: 05-30-2020 Subsequent hospital visit by physician Glenn Martínez Work Phone: [facility] Start: 05-30-2020 End: 05-30-2020 Subsequent hospital visit by physician Justino Dhaliwal [facility] Start: 05-23-2020 End: 05-23-2020 Subsequent hospital visit by physician Justino Dhaliwal [facility] Start: 05-23-2020 End: 05-23-2020 Subsequent hospital visit by physician Justino Dhaliwal [facility] Start: 05-17-2020 End: 05-17-2020 Subsequent hospital visit by physician Justino Dhaliwal 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 Start: 05-08-2020 End: 05-08-2020 Subsequent hospital visit by physician Justino Dhaliwal [facility] Laboratory Start: 05-03-2020 End: 05-03-2020 Subsequent hospital visit by physician Justino Dhaliwal [facility] Start: 04-10-2020 End: 04-10-2020 Subsequent hospital visit by physician Justino Dhaliwal [facility] Start: 04-02-2020 End: 04-06-2020 Evaluation and management of inpatient Kian Cha Klever [facility] Comment on above: General weakness (Pr imary Dx); Hypokalemia; Malaise; Cellulitis of right upper extremity Start: 03-25-2020 End: 03-25-2020 Subsequent hospital visit by physician Justino Dhaliwal [facility] Laboratory Start: 03-23-2020 End: 03-23-2020 Emergency department patient visit Forest Baer Work Phone: [facility] ED Comment on above: Pain of left hip bridger nt (Primary Dx) Start: 03-12-2020 End: 03-12-2020 Subsequent hospital visit by physician Justino Dhaliwal [facility] Laboratory Start: 02-27-2020 End: 02-27-2020 Subsequent hospital visit by physician Justino Dhaliwal [facility] Laboratory Start: 02-20-2020 End: 02-20-2020 Subsequent hospital visit by physician Justino Dhaliwal [facility] Laboratory Start: 02-09-2020 End: 02-15-2020 Evaluation and management of inpatient Carlos Carlin Facility:[facility] Start: 02-09-2020 End: 02-09-2020 Emergency department patient visit Mariusz Rodriguez Work Phone: [facility] ED Comment on above: Closed displaced int ertrochanteric fracture of left femur, initial encounter ([facility]) (Primary Dx) Start: 02-02-2020 End: 02-02-2020 Subsequent [facility] Laboratory Comment on above: Arrived Start: 10-30-2019 End: 10-30-2019 Subsequent hospital visit by physician Justino Dhaliwal [facility] Laboratory Start: 08-11-2019 End: 08-13-2019 Subsequent hospital visit [facility] Laboratory Comment on above: Arrived Chronic kidney disea se, stage IV (severe) ([facility]) Procedures Date Procedure Procedure Detail Performing Clinician Start: 09-23-2023 Antibody screen BRINA CORDERO Comment on above: Order Comment: Speci men Type: BLOOD SPECIMEN Ordering Facility: [facility] Address: [address] [place] [address] Performed By: #### T [id number] #### [facility] CLIA [id number] [place] [address] [place] Start: 08-31-2023 Urine culture MD Destiny Irwin Work Phone: Start: 12-05-2020 Blood count complete auto&auto difrntl wbc Manuelraymond CunhaSequence Work Phone: Start: 12-05-2020 C-reactive protein Sana jeffrey [employer] Work Phone: Start: 12-05-2020 Assay of blood/uric acid Benahili U Iboaya Work Phone: Start: 12-05-2020 Assay of magnesium [place] hili U Iboaya Work Phone: Start: 12-05-2020 Assay of parathormone B enahili U Iboaya Work Phone: Start: 12-05-2020 Renal function panel Be nahili U Iboaya Work Phone: Start: 11-07-2020 Blood count complete auto&auto difrntl wbc Manuel yooneamy Work Phone: Start: 11-07-2020 C-reactive protein Sana jeffreychino Cunhaamy Work Phone: Start: 11-07-2020 Sedimentation rate r bc automated Manuel Cunhaamy Work Phone: Start: 10-30-2020 Lipid panel Justino F Dany sse Work Phone: Start: 10-23-2020 Blood count complete automated Manuel Cunhaamy Work Phone: Start: 10-23-2020 C-reactive protein Sanalucie Cunhaamy Work Phone: Start: 10-23-2020 Comprehensive metabo lic panel Manuel Cunhaamy Work Phone: Start: 10-23-2020 Sedimentation rate r bc automated Manuel Cunhaamy Work Phone: Start: 09-26-2020 Assay of magnesium Vincent s F Madhuri Work Phone: Start: 09-26-2020 Blood count complete automated Manuel Cunhaamy Work Phone: Start: 09-26-2020 C-reactive protein Sanalucie Cunhaamy Work Phone: Start: 09-26-2020 Comprehensive metabo lic panel Manuel Cunhaamy Work Phone: Start: 09-26-2020 Sedimentation rate r bc automated Manuel Cunhaamy Work Phone: Start: 09-18-2020 Blood count complete automated Manuel Cunhaamy Work Phone: Start: 09-18-2020 C-reactive protein Sana jeffreychino Cunhaamy Work Phone: Start: 09-18-2020 Comprehensive metabo lic panel Manuel Cunhaamy Work Phone: Start: 09-18-2020 Sedimentation rate r bc automated Manuel Myersnasamy Work Phone: Start: 09-11-2020 Blood count complete automated Manuelraymond Myersnasamy Work Phone: Start: 09-11-2020 C-reactive protein Sanalucie Cunhaamy Work Phone: Start: 09-11-2020 Comprehensive metabo lic panel Manuelraymond Myersnasamy Work Phone: Start: 09-11-2020 Sedimentation rate r bc automated Manuelraymond Myersnasamy Work Phone: Start: 09-06-2020 C-reactive protein Sana jeffrey Cunhaamy Work Phone: Start: 09-06-2020 Comprehensive metabo lic panel Manuelraymond Myersnasamy Work Phone: Start: 09-05-2020 Blood count complete automated Manuelraymond Myersnasamy Work Phone: Start: 09-05-2020 Comprehensive metabo lic panel Manuelraymond Cunhaamy Work Phone: Start: 09-05-2020 Sedimentation rate r bc automated Manuelraymond Cunhaamy Work Phone: Start: 08-28-2020 Blood count complete automated Manuel Myersnasamy Work Phone: Start: 08-28-2020 C-reactive protein Sanalucie Cunhaamy Work Phone: Start: 08-28-2020 Comprehensive metabo lic panel Manuel Cunhaamy Work Phone: Start: 08-28-2020 Sedimentation rate r bc automated Manuelraymond Myersnasamy Work Phone: Start: 08-27-2020 Urinalysis microscopic only Justino Dhaliwal Work Phone: Start: 08-27-2020 Urnls dip stick/tabl et rgnt auto w/o microscopy Justino Dhaliwal Work Phone: Start: 08-21-2020 Blood count complete automated Manuel Ratnasamy Work Phone: Start: 08-21-2020 C-reactive protein Sanalucie Myersnasamy Work Phone: Start: 08-21-2020 Comprehensive metabo lic panel Manuel Ratnasamy Work Phone: Start: 08-21-2020 Sedimentation rate r bc automated Manuel Kathleen Work Phone: Start: 08-16-2020 Blood count complete automated Manuel Kathleen Work Phone: Start: 08-16-2020 C-reactive protein Sana Kathleen Work Phone: Start: 08-16-2020 Comprehensive metabo lic panel Manuel Kathleen Work Phone: Start: 08-16-2020 Sedimentation rate r bc automated Manuel Kathleen Work Phone: Start: 08-09-2020 Assay of blood/uric acid Benahili U Iboaya Work Phone: Start: 08-09-2020 Assay of ferritin Benah david U Iboaya Work Phone: Start: 08-09-2020 Assay of magnesium Joselyn hili U Rockoaya Work Phone: Start: 08-09-2020 Assay of parathormone B enahili U Iboaya Work Phone: Start: 08-09-2020 Blood count complete automated Benahili U Iboaya Work Phone: Start: 08-09-2020 Iron binding capacity B enahili U Iboaya Work Phone: Start: 08-09-2020 Renal function panel Be nahili U Iboaya Work Phone: Start: 08-09-2020 Creatinine other source Benahili U Iboaya Work Phone: Start: 08-09-2020 Protein total xcpt refractometry urine Benahili U Iboaya Work Phone: Start: 08-09-2020 Urinalysis microscopic only Benahili U Iboaya Work Phone: Start: 08-09-2020 Urnls dip stick/tabl et rgnt auto w/o microscopy Benahili U Iboaya Work Phone: Start: 07-18-2020 Assay of blood/uric acid Benahili U Jeevan Work Phone: Start: 07-18-2020 Assay of magnesium Joselyn hili U Jeevan Work Phone: Start: 07-18-2020 Assay of parathormone B enzacharyili U Jeevan Work Phone: Start: 07-18-2020 Blood count complete automated Herberthili U Jeevan Work Phone: Start: 07-18-2020 Renal function panel Be nahili U Jeevan Work Phone: Start: 07-18-2020 Creatinine other source Benmabel U Jeevan Work Phone: Start: 07-18-2020 Protein total xcpt refractometry urine Dilan Chew Work Phone: Start: 07-18-2020 Urinalysis microscopic only Dilan U Jeevan Work Phone: Start: 07-18-2020 Urnls dip stick/tabl et rgnt auto w/o microscopy Benmabel U Jeevan Work Phone: Start: 07-09-2020 Basic metabolic pane l calcium total Justino Thompsonse Work Phone: Start: 07-01-2020 Basic metabolic pane l calcium total Manuel Ratnasamy Work Phone: Start: 06-25-2020 Basic metabolic pane l calcium total Manuel Ratnasamy Work Phone: Start: 06-19-2020 Cul bact xcpt urine blood/stool aerobic isol Justino Boone Madhuri Work Phone: Start: 06-19-2020 Lipid panel Justino Boone Dany rachel Work Phone: Start: 06-13-2020 Cul bact xcpt urine blood/stool aerobic isol Glenn Merrilleliel Work Phone: Start: 06-12-2020 Blood count complete automated Manuel Ratnasamy Work Phone: Start: 06-12-2020 C-reactive protein Sanalucie Cunhaamy Work Phone: Start: 06-12-2020 Comprehensive metabo lic panel Manuel Cunhaamy Work Phone: Start: 06-12-2020 Sedimentation rate r bc automated Manuel Cunhaamy Work Phone: Start: 06-06-2020 Blood count complete automated Manuel Cunhaamy Work Phone: Start: 06-06-2020 C-reactive protein Sanalucie Cunhaamy Work Phone: Start: 06-06-2020 Comprehensive metabo lic panel Manuel Cunhaamy Work Phone: Start: 06-06-2020 Sedimentation rate r bc automated Manuel Cunhaamy Work Phone: Start: 05-30-2020 C-reactive protein Sana Cunhaamy Work Phone: Start: 05-30-2020 Sedimentation rate r bc automated Manuel Cunhaamy Work Phone: Start: 05-30-2020 Blood count complete auto&auto difrntl wbc Manuel Cunhaamy Work Phone: Start: 05-30-2020 Comprehensive metabo lic panel Manuel Cunhaamy Work Phone: Start: 05-23-2020 Blood count complete auto&auto difrntl wbc Manuel Cunhaamy Work Phone: Start: 05-23-2020 C-reactive protein Sanalucie Cunhaamy Work Phone: Start: 05-23-2020 Comprehensive metabo lic panel Justino Dhaliwal Work Phone: Start: 05-23-2020 Sedimentation rate r bc automated Manuel Ratnasamy Work Phone: Start: 05-17-2020 Blood count complete auto&auto difrntl wbc Justino Dhaliwal Work Phone: Start: 05-17-2020 Comprehensive metabo lic panel Justino Boone Madhuri Work Phone: Start: 05-15-2020 HEMOGLOBIN AND HEMAT OCRIT, BLOOD CHELE ARANGOZINA Start: 05-15-2020 DISCHARGE PATIENT SHIKHA LAGOS Start: 05-15-2020 Blood count hemoglobin Natasha Clay Corinna Work Phone: Start: 05-15-2020 INITIATE OXYGEN THER APY PROTOCOL CHELE DEMOND Start: 05-14-2020 HEMOGLOBIN AND HEMAT OCRIT, BLOOD CHELE DEMOND Start: 05-14-2020 Blood count hemoglobin Katarina Cha Ceres Work Phone: Start: 05-14-2020 TRANSFUSE RED BLOOD CELLS CHELE LAGOS Start: 05-14-2020 Antibody screen Chele Lagos Comment on above: Performed at [facility] [address] [place] [address] Start: 05-14-2020 PREPARE RBC (CROSSMATCH) CHELE LAGOS Start: 05-14-2020 TYPE AND SCREEN CHELE LAGOS Start: 05-14-2020 FOOT/ANKLE BOOT CHELE LAGOS Start: 05-14-2020 Radex foot complete minimum 3 views CHELE LAGOS Start: 05-14-2020 INITIATE OXYGEN THER APY PROTOCOL CHELE LAGOS Start: 05-14-2020 TRANSFUSION REACTION MANAGEMENT CHELE LAGOS Start: 05-14-2020 VERIFY INFORMED CONSENT CHELE LAGOS Start: 05-14-2020 VITAL SIGNS PER MANCIA SFUSION PROTOCOL CHELE LAGOS Start: 05-14-2020 Antibody bordetella SARA LAGOS Start: 05-14-2020 Basic metabolic pane l calcium total CHELE LAGOS Start: 05-14-2020 Blood count complete auto&auto difrntl wbc CHELE LAGOS Start: 05-14-2020 Blood smear peripher al interp phys w/writ report CHELE LAGOS Start: 05-14-2020 Creatinine blood CHELE LAGOS Start: 05-14-2020 Blood typing serologic abo Gheith Eliseo Work Phone: Start: 05-14-2020 Radex foot complete minimum 3 views Katarina Cha Ceres Work Phone: Start: 05-14-2020 Anion gap [Moles/Vol] G heith Eliseo Work Phone: Start: 05-14-2020 Basic metabolic pane l calcium total Gheith Eliseo Work Phone: Start: 05-14-2020 Blood count complete auto&auto difrntl wbc Gheith Eliseo Work Phone: Start: 05-14-2020 GLOMERULAR FILTRATIO N RATE, ESTIMATED Gheith Eliseo Work Phone: Start: 05-14-2020 SCAN OF BLOOD SMEAR Ghe ith Eliseo Work Phone: Start: 05-14-2020 MISCELLANEOUS NURSIN G CARE ORDER (SPECIFY) CHELE DEMOND Start: 05-13-2020 Blood count complete auto&auto difrntl wbc CHELE LAGOS Start: 05-13-2020 Antibody bordetella SARA LAGOS Start: 05-13-2020 Basic metabolic pane l calcium total CHELE LAGOS Start: 05-13-2020 Creatinine blood CHELE LAGOS Start: 05-13-2020 MISCELLANEOUS NURSIN G CARE ORDER (SPECIFY) CHELE LAGOS Start: 05-13-2020 MONITOR WOUND DRAINAGE CHELE LAGOS Start: 05-13-2020 Blood count complete auto&auto difrntl wbc Gheith Eliseo Work Phone: Start: 05-13-2020 Anion gap [Moles/Vol] G heith Eliseo Work Phone: Start: 05-13-2020 Basic metabolic pane l calcium total Gheith Eliseo Work Phone: Start: 05-13-2020 GLOMERULAR FILTRATIO N RATE, ESTIMATED Gheith Eliseo Work Phone: Start: 05-13-2020 INITIATE OXYGEN THER APY PROTOCOL CHELE LAGOS Start: 05-13-2020 IP CONSULT TO SOCIAL WORK CHELE LAGOS Start: 05-12-2020 BLADDER SCAN CHELE IZAGUIRRE Start: 05-12-2020 BLADDER SCAN Gheith You sif Work Phone: Start: 05-12-2020 INITIATE OXYGEN THER APY PROTOCOL CHELE LAGOS Start: 05-12-2020 WOUND OSTOMY EVAL SHIKHA LAGOS Start: 05-12-2020 Antibody bordetella SARA CRISTOBAL DEMOND Start: 05-12-2020 Basic metabolic pane l calcium total CHELE LAGOS Start: 05-12-2020 Blood count complete auto&auto difrntl wbc CHELE LAGOS Start: 05-12-2020 Creatinine blood CHELE LAGOS Start: 05-12-2020 WOUND OSTOMY EVAL Shikha stein P Demond Work Phone: Start: 05-12-2020 Anion gap [Moles/Vol] C Tred A Yapta Work Phone: Start: 05-12-2020 Basic metabolic pane l calcium total Sylvia A Yapta Work Phone: Start: 05-12-2020 Blood count complete auto&auto difrntl wbc Sylvia A Yapta Work Phone: Start: 05-12-2020 GLOMERULAR FILTRATIO N RATE, ESTIMATED Sylvia A Yapta Work Phone: Start: 05-12-2020 STRAIGHT CATH CHELE ARVIZU MAN Start: 05-12-2020 BLADDER SCAN CHELE IZAGUIRRE Start: 05-12-2020 BLADDER SCAN Mirian R Kryling Start: 05-11-2020 NURSING COMMUNICATION S MAGDIEL LAGOS Start: 05-11-2020 BLADDER SCAN CHELE IZAGUIRRE Start: 05-11-2020 BLADDER SCAN Gheith You sif Work Phone: Start: 05-11-2020 Blood count complete auto&auto difrntl wbc CHELE LAGOS Start: 05-11-2020 Antibody bordetella SARA CRISTOBAL DEMOND Start: 05-11-2020 Basic metabolic pane l calcium total CHELE LAGOS Start: 05-11-2020 Creatinine blood CHELE LAGOS Start: 05-11-2020 INITIATE OXYGEN THER APY PROTOCOL CHELE LAGOS Start: 05-11-2020 Blood count complete auto&auto difrntl wbc Sylvia A Yapta Work Phone: Start: 05-11-2020 Anion gap [Moles/Vol] C Tred A Yapta Work Phone: Start: 05-11-2020 Basic metabolic pane l calcium total Sylvia A Yapta Work Phone: Start: 05-11-2020 GLOMERULAR FILTRATIO N RATE, ESTIMATED Sylvia Monte Work Phone: Start: 05-10-2020 DIET GENERAL CHELE ARANGO ZINA Start: 05-10-2020 IP CONSULT TO HOSPITALIST CHELE LAGOS Start: 05-10-2020 OT EVAL AND TREAT SHIKHA Sarita LAGOS Start: 05-10-2020 PLACE INTERMITTENT PNEUMATIC COMPRESSION DEVICE CHELE ARANGOZINA Start: 05-10-2020 PT EVAL AND TREAT SHIKHA Sarita DEMOND Start: 05-10-2020 WEIGHT BEARING TOLERATED CHELE ARANGOZINA Start: 05-10-2020 FULL CODE CHELE IZAGUIRRE Start: 05-10-[address]FFECT[address] AREA [address] MALICK LAGOS Start: 05-10-2020 INITIATE OXYGEN THER APY PROTOCOL CHELE DEMOND Start: 05-10-2020 INTAKE AND OUTPUT SHIKHA Sarita LAGOS Start: 05-10-2020 NEURO/VASCULAR CHECKS S MOSESGENEVA DEMOND Start: 05-10-2020 VITAL SIGNS CHELE ARANGO ZINA Start: 05-10-2020 Radex hip unilateral with pelvis 2-3 views CHELE ARANGOZINA Start: 05-10-2020 PATIENT STATUS (FROM ED OR OR/PROCEDURAL) CHELE DEMOND Start: 05-10-2020 TRANSFER PATIENT CHELE DEMOND Start: 05-10-2020 Cul prsmptv pthgnc o rganism scrn w/colony estimj CHELE ARANGOZINA Start: 05-10-2020 Radex hip unilateral with pelvis 2-3 views Sylvia Monte Work Phone: Start: 05-10-2020 ELEVATE HEELS OFF OF BED CHELE LAGOS Start: 05-10-2020 HEAD OF BED 60 DEGRE ES OR LESS CHELE LAGOS Start: 05-10-2020 NURSING COMMUNICATION S MAGDIEL LAGOS Start: 05-10-2020 TURN PATIENT CHELE HAM ZINA Start: 05-10-2020 TYPE AND SCREEN CHELE LAGOS Start: 05-10-2020 End: 05-10-2020 HIP TOTAL ARTHROPLASTY REVISION Chele Lagos Work Phone: Start: 05-10-2020 COVID-19 CHELE IZAGUIRRE Start: 05-10-2020 Antibody screen Chele Lagos Comment on above: Performed at [facility] [address] [id number] Start: 05-10-2020 Blood typing serologic abo Chele Lagos Work Phone: Start: 05-10-2020 COVID-19 Chele garcia Work Phone: Start: 05-09-2020 Basic metabolic pane l calcium total Chele Lagos Work Phone: Start: 05-09-2020 Blood count complete automated Chele Lagos Work Phone: Start: 05-08-2020 Urinalysis microscopic only Jose Armando Acosta Work Phone: Start: 05-08-2020 Urnls dip stick/tabl et rgnt auto w/o microscopy Jose Armando Acosta Work Phone: Start: 05-03-2020 Basic metabolic pane l calcium total Justino Dhaliwal Work Phone: Start: 05-03-2020 Blood count complete auto&auto difrntl wbc Justino Dhaliwal Work Phone: Start: 04-10-2020 Blood count complete auto&auto difrntl wbc Justino Dhaliwal Work Phone: Start: 04-10-2020 Comprehensive metabo lic panel Justino Dhaliwal Work Phone: Start: 04-10-2020 Urnls dip stick/tabl et reagent auto microscopy Justino Dhaliwal Work Phone: Start: 04-06-2020 Blood count complete auto&auto difrntl wbc Ricco Glez Gonzalo Work Phone: Start: 04-06-2020 Comprehensive metabo lic panel Ricco Newton Sánchez Work Phone: Start: 04-05-2020 COVID-19 Ricco Sánchez Work Phone: Start: 04-05-2020 Blood count complete auto&auto difrntl wbc Ricco Newton Sánchez Work Phone: Start: 04-05-2020 Comprehensive metabo lic panel Ricco Newton Sánchez Work Phone: Start: 04-03-2020 Assay of lactate Ricco Sánchez Work Phone: Start: 04-03-2020 Assay of magnesium Ricco Sánchez Work Phone: Start: 04-03-2020 BASIC METABOLIC PANE L W/ REFLEX TO MG FOR LOW K Ricco Sánchez Work Phone: Start: 04-03-2020 Blood count complete automated Ricco Sánchez Work Phone: Start: 04-02-2020 PULSE OXIMETRY SPOT CHECK Ricco Sánchez Work Phone: Start: 04-02-2020 End: 04-02-2020 CULTURE, BLOOD 1 Mariusz Rodriguez Work Phone: Start: 04-02-2020 Urnls dip stick/tabl et reagent auto microscopy Kian Ernst Start: 04-02-2020 Assay of magnesium Mariusz E Michael Work Phone: Start: 04-02-2020 BASIC METABOLIC PANE L W/ REFLEX TO MG FOR LOW K Mariusz E Michael Work Phone: Start: 04-02-2020 Ecg routine ecg w/le ast 12 lds i&r only Kian Ernst Start: 04-02-2020 EKG REPORT Hpf Scanni ng Start: 04-02-2020 Assay of troponin quantitative Kian Ernst Start: 04-02-2020 Assay of troponin quantitative Kian Ernst Start: 04-02-2020 Basic metabolic pane l calcium total Kian Ernst Start: 04-02-2020 Blood count complete auto&auto difrntl wbc Kian Ernst Start: 04-02-2020 Ecg routine ecg w/le ast 12 lds i&r only Kian Ernst Start: 04-02-2020 EKG REPORT Hpf Scanni ng Start: 04-02-2020 Radiologic exam ches t single view Kian Ernst Start: 03-25-2020 Blood count complete auto&auto difrntl wbc Justino Paolo Madhuri Work Phone: Start: 03-25-2020 Comprehensive metabo lic panel Justino Dhaliwal Work Phone: Start: 03-23-2020 COVID-19 Forest cabrera Work Phone: Start: 03-23-2020 Radex hip unilateral with pelvis 2-3 views Forest Baer Work Phone: Start: 03-23-2020 BASIC METABOLIC PANE L W/ REFLEX TO MG FOR LOW K Forest Baer Work Phone: Start: 03-23-2020 Blood count complete auto&auto difrntl wbc Forest Baer Work Phone: Start: 03-23-2020 Prothrombin time Forest Baer Work Phone: Start: 03-23-2020 Thromboplastin time partial plasma/whole blood Forest Baer Work Phone: Start: 03-12-2020 Blood count complete auto&auto difrntl wbc Justino Dhaliwal Work Phone: Start: 03-12-2020 Comprehensive metabo lic panel Justino Dhaliwal Work Phone: Start: 02-27-2020 Blood count complete auto&auto difrntl wbc Justino Dhaliwal Work Phone: Start: 02-27-2020 Comprehensive metabo lic panel Justino Dhaliwal Work Phone: Start: 02-20-2020 Blood count complete auto&auto difrntl wbc Justino Dhaliwal Work Phone: Start: 02-20-2020 Comprehensive metabo lic panel Justino Dhaliwal Work Phone: Start: 02-09-2020 Ct cervical spine w/ o contrast material Mariusz Latanya Rodriguez Work Phone: Start: 02-09-2020 Ct head/brain w/o co ntrast material Mariusz Latanya Rodriguez Work Phone: Start: 02-09-2020 Radex hip unilateral with pelvis 2-3 views Mariusz Latanya Rodriguez Work Phone: Start: 02-09-2020 Radiologic exam ches t single view Mariusz Latanya Rodriguez Work Phone: Start: 02-09-2020 Blood count complete auto&auto difrntl wbc Mariuszsarita Rodriguez Work Phone: Start: 02-09-2020 Prothrombin time Mariuszsarita Rodriguez Work Phone: Start: 02-09-2020 Thromboplastin time partial plasma/whole blood Mariuszsarita Rodriguez Work Phone: Start: 02-02-2020 Assay of blood/uric acid Benahili U Iboaya Start: 02-02-2020 Assay of magnesium Joselyn hili U Iboaya Start: 02-02-2020 Assay of parathormone B enahili U Iboaya Start: 02-02-2020 Blood count complete automated [place] U Iboaya Start: 02-02-2020 Creatinine other source [place] U Iboaya Start: 02-02-2020 Protein total xcpt refractometry urine [place] U Iboaya Start: 02-02-2020 Renal function panel Be nahili U Iboaya Start: 02-02-2020 Urnls dip stick/tabl et reagent auto microscopy [place] U Iboaya Start: 10-30-2019 Assay of blood/uric acid [place] U Iboaya Start: 10-30-2019 Assay of magnesium [place] hili U Iboaya Start: 10-30-2019 Assay of parathormone B enahili U Iboaya Start: 10-30-2019 Blood count complete automated [place] U Iboaya Start: 10-30-2019 Creatinine other source Ben[place] U Iboaya Start: 10-30-2019 Protein total xcpt refractometry urine [place] U Iboaya Start: 10-30-2019 Renal function panel Be nahili U Iboaya Start: 10-30-2019 Urnls dip stick/tabl et reagent auto microscopy [place] U Iboaya Start: 08-11-2019 Us retroperitoneal r eal time w/image complete [place] U Iboaya Start: 08-11-2019 Assay of blood/uric acid [place] U Iboaya Start: 08-11-2019 Assay of magnesium Joselyn hili U Iboaya Start: 08-11-2019 Assay of parathormone B enmabel Chew Start: 08-11-2019 Assay of thyroid stimulating hormone tsh Dilan Chew Start: 08-11-2019 Blood count complete automated Dilan Chew Start: 08-11-2019 Creatinine clearance Be lindy Chew Start: 08-11-2019 Creatinine other source Dilan Chew Start: 08-11-2019 End: 08-11-2019 Protein total xcpt refractometry urine Dilan Chew Start: 08-11-2019 Renal function panel Be lindy Chew Start: 08-11-2019 Urnls dip stick/tabl et reagent auto microscopy Dilan Chew Start: 08-11-2019 VITAMIN B12 & FOLATE Be lindy Chew Plan of Treatment Date Care Activity Detail Author Start: 10-23-2023 Diabetes Screening Diabetes Screenin [facility] Start: 08-31-2023 End: 08-31-2023 [facility] Start: 08-31-2023 Plain chest X-ray XR chest 2V* [facility] Start: 08-31-2023 XR Chest 2 Views [facility] Start: 08-31-2023 CT Abdomen and Pelvi s WO contrast [facility] Start: 08-31-2023 CT of abdomen and pelvis without contrast CT abdomen pelvis wo [facility] Start: 08-31-2023 CT of head without contrast CT head/brain wo [facility] Start: 08-31-2023 CT Unspecified body region WO contrast [facility] Start: 08-31-2023 [facility] Start: 05-28-2023 Influenza vaccination Influenza Vacc ine (#1) [facility] Start: 09-27-2022 Advance Directive Discussion Advance Directive Discussion [facility] Start: 09-27-2022 Depression Assessment Depression Ass essment [facility] Start: 12-05-2021 Creatinine measurement Creatinine mo nitoring [employer] Phone: Start: 12-05-2021 [facility] Start: 10-30-2021 Lipid panel Lipid screen [facility] Work Phone: Start: 10-23-2021 Creatinine measurement Creatinine mo [facility] [place] Start: 10-23-2021 Potassium monitoring Potassium monit [facility] Start: 09-26-2021 Creatinine measurement Creatinine mo [facility] [place] Start: 09-26-2021 Potassium monitoring Potassium monit [facility] Start: 09-18-2021 Creatinine measurement Creatinine mo [facility] [place] Start: 09-18-2021 Potassium monitoring Potassium monit [facility] Start: 09-11-2021 Creatinine measurement Creatinine mo [facility] [place] Start: 09-11-2021 Potassium monitoring Potassium monit [facility] Start: 06-19-2021 Lipid panel Lipid screen [place], [place] Start: 05-28-2021 Influenza vaccination [facility] Work Phone: Start: 04-05-2021 Creatinine measurement Creatinine mo [facility] [place] Start: 04-05-2021 Potassium monitoring Potassium monit [facility] Start: 03-23-2021 Creatinine measurement Creatinine mo [facility] [place] Start: 03-23-2021 Potassium monitoring Potassium monit [facility] Start: 03-12-2021 Creatinine measurement Creatinine mo [place], [place] Start: 03-12-2021 Potassium monitoring Potassium monit [facility] Start: 02-26-2021 Creatinine measurement Creatinine mo [facility] [place] Start: 02-26-2021 Potassium monitoring Potassium monit [facility] Start: 02-19-2021 Creatinine measurement Creatinine mo [facility] [place] Start: 02-19-2021 Potassium monitoring Potassium monit [facility] Start: 02-08-2021 Creatinine measurement Creatinine mo [place], [place] Start: 02-08-2021 Potassium monitoring Potassium monit [facility] Start: 02-01-2021 Creatinine measurement Creatinine mo [place], [place] Start: 02-01-2021 Potassium monitoring Potassium monit [place] Start: 10-30-2020 Creatinine measurement Creatinine mo nitoring [place] Start: 10-30-2020 Potassium monitoring Potassium [place]it [place] Start: 09-12-2020 End: 09-12-2020 Appointment 09/12/2020 Appointment Wound Glenn Camargo, DPM [address] [address] [phone] [facility] Start: 08-15-2020 End: 08-15-2020 Appointment 08/15/2020 Appointment Wound Glenn Camargo, DPM [address] [place] [address] [phone] [facility] Start: 08-11-2020 Creatinine [place] Start: 08-11-2020 Potassium monitoring Potassium monit [place] Start: 07-18-2020 End: 07-18-2020 Appointment 07/18/2020 Appointment Wound Glenn Camargo, DPM [address] [place] [address] [phone] [facility] Start: 06-27-2020 End: 06-27-2020 Appointment 06/27/2020 Appointment Wound Glenn Camargo, DPM [address] [place] [address] [phone] [facility] Start: 06-13-2020 End: 06-13-2020 Appointment 06/13/2020 Appointment Wound OstGlenn Gonzalez, DPM [address] [place] [address] [facility] Start: 05-28-2020 Influenza vaccination [place], [place] Start: 05-28-2019 Influenza vaccination Flu vaccine (# 1) [place] Start: 03-17-2019 Annual Wellness Visi t (AWV) Annual Wellness Visit (AWV) [place] Start: 03-08-2019 Creatinine monitoring Creatinine mon [place]oring [place] Start: 03-08-2019 Lipid panel Lipid [place] Start: 03-08-2019 Lipid screen Lipid [place] Start: 03-08-2019 Potassium monitoring Potassium monit [place]ing [place] Start: 2002 DEXA (modify frequen cy per FRAX score) DEXA (modify frequency per FRAX score) [place] Start: 2002 Pneumococcal 65+ yea rs Vaccine (1 of 1 - PPSV23) Pneumococcal 65+ years Vaccine (1 of 1 - PPSV23) [place] Start: 2002 Pneumococcal 65+ yrs at Risk Vaccine (1 of 2 - PCV13) Pneumococcal 65+ yrs at Risk Vaccine (1 of 2 - PCV13) [place] Start: 2002 Pneumococcal Vaccine : 65+ (1 - PCV) Pneumococcal Vaccine: 65+ (1 - PCV) [facility] Start: 2002 Screening for osteoporosis Bone Density Screening [facility] Start: 1997 RSV Vaccine (1 - 1-d ose 60+ series) RSV Vaccine (1 - 1-dose 60+ series) [facility] Start: 1992 Screening for osteoporosis DEXA (modify frequency per FRAX score) [place] Start: 1987 Shingles Vaccine (1 of 2) Shingles Vaccine (1 of 2) [place] Start: 1987 Shingrix Vaccine (1 of 2) Shingrix Vaccine (1 of 2) [facility] Start: 1956 DTaP/Tdap/Td vaccine (1 - Tdap) DTaP/Tdap/Td vaccine (1 - Tdap) [place] Start: 1956 Urine microalbumin profile DTaP,Tdap,Td Vaccine (1 - Tdap) [facility] Start: 1953 COVID-19 Vaccine (1 of 2) COVID-19 Vaccine (1 of 2) [place] Start: 1949 COVID-19 Vaccine (1) COVID-19 Vaccin e (1) [facility] Work Phone: Start: 1948 DTaP/Tdap/Td vaccine (1 - Tdap) DTaP/Tdap/Td vaccine (1 - Tdap) [place] Start: 02-07-1938 Covid-19 Vaccine (#1) Covid-19 Vacci ne (#1) [facility] Bacteria identified in Blood by Culture [facility] Bacteria identified in Urine by Culture [facility] CBC auto differential CBC auto d ifferential Lab Routine Daily until discontinued starting 04/05/2020, 2 completed [place] Comment on above: Daily until disconti nued starting 04/05/2020, 2 completed Comprehensive metabo lic 2000 panel Comprehensive metabolic panel Lab Routine Daily until discontinued starting 04/05/2020, 2 completed [place] Comment on above: Daily until disconti nued starting 04/05/2020, 2 completed Culture, Anaerobic a nd Aerobic Culture, Anaerobic and Aerobic Microbiology Routine 05/10/2020 1:31 PM EDT [place] Culture, Blood 1 [place] End: 04-10-2020 Culture, Urine Culture, Urine Microbiology Routine Once for 1 Occurrences starting 04/10/2020 until 04/10/2020 [place] Comment on above: Once for 1 Occurrenc es starting 04/10/2020 until 04/10/2020 Culture, Urine [place] End: 05-08-2020 Culture, Urine Culture, Urine Microbiology Routine Once for 1 Occurrences starting 05/08/2020 until 05/08/2020 [place] Comment on above: Once for 1 Occurrenc es starting 05/08/2020 until 05/08/2020 End: 08-09-2020 Culture, Urine Culture, Urine Microbiology Routine Once for 1 Occurrences starting 08/09/2020 until 08/09/2020 [place] Comment on above: Once for 1 Occurrenc es starting 08/09/2020 until 08/09/2020 End: 08-27-2020 Culture, Urine Culture, Urine Microbiology Routine Once for 1 Occurrences starting 08/27/2020 until 08/27/2020 [place] Comment on above: Once for 1 Occurrenc es starting 08/27/2020 until 08/27/2020 Culture, Wound [facility] SHREYA Hemoglobin and Hematocrit, Blood, Post Transfusion Hemoglobin and Hematocrit, Blood, Post Transfusion Lab Routine Post Transfusion Post Transfusion Post Transfustion for 1 Occurrences starting 05/14/2020 [place] Comment on above: Post Transfusion Pos t Transfusion Post Transfustion for 1 Occurrences starting 05/14/2020 Initiate Oxygen Ther apy Protocol Initiate Oxygen Therapy Protocol Respiratory Care Routine Daily until discontinued [facility]03[facility]2020 [facility] Comment on above: Daily until disconti nued starting 04/03/2020 End: 08-11-2019 Iron and TIBC Iron and TIBC Lab Routine Once for 1 Occurrences starting 08/11/2019 until 08/11/2019 [facility] Comment on above: Once for 1 Occurrenc es starting 08/11/2019 until 08/11/2019 Iron and TIBC Iron and TIBC La b Routine 08/11/2019 10:35 AM EST [facility] [place] End: 10-07-2024 Kidney img morphology vascular flow 1 w/rx NM RENAL FLOW/FXN W PHARM Radiology Routine Hydronephrosis with urinary obstruction due to renal calculus 1 Occurrences starting 09/08/2023 until 10/07/2024 [facility] Work Phone: Comment on above: 1 Occurrences starti ng 09/08/2023 until 10/07/2024 Oxygen therapy [Mini [facility] Data Set] Initiate Oxygen Therapy Protocol Respiratory Care Routine Daily until discontinued starting 05/11/2020 [facility] [place] Comment on above: Daily until disconti nued starting 05/11/2020 PREPARE RBC (CROSSMATCH), 1 Units PREPARE RBC (CROSSMATCH), 1 Units Blood Bank Non-Stat 05/14/2020 8:58 AM EDT [facility] Transfuse erythrocyt es [Vol] Transfuse RBC Nursing Transfusion Routine 05/14/2020 11:30 AM EDT [facility] Payers Date Payer Category Payer Self-pay 2023 Medicaid [facility]ICAID [facility] MEDICAID [id number] 2023-Present [phone] [address] [place] [address] Medicaid [id number] 2022 Medicaid [id number] 2020 Unknown 2017 Medicare [facility] MEDICARE AN THEM MEDIBLUE ESSENTIAL/PLUS xxxxxxxxxxxx 2017-Present [address] [address] [place] [address] xxxxxxxxxxxx [id number] 2017 Medicare BCBS MEDICARE AN THEM MEDIBLUE ESSENTIAL/PLUS [id number] 2017-Present [address] [address] [place] [address] [id number] 2002 Medicare 2002 Medicare [id number] 1959 Medicare [id number] 1937 Unknown [id number] [id number] 1937 Unknown [id number] [id number] 1937 Unknown [id number] [id number] 1937 Unknown [id number] 2.16.840.1.329516.3.579.2.173 1937 Unknown [id number] 2.16.840.1.213581.3.579.2.173 1937 Unknown [id number] 2.16.840.1.518110.3.579.2.173 1937 Unknown [id number] 2.16.840.1.635029.3.579.2.173 1937 Unknown [id number] 2.16.840.1.769298.3.579.2.173 1937 Unknown [id number] 2.16.840.1.930846.3.579.2.173 1937 Unknown [id number] 2.16.840.1.222195.3.579.2.173 1937 Unknown [id number] 2.16.840.1.729575.3.579.2.173 1937 Unknown [id number] 2.16.840.1.554601.3.579.2.173 1937 Unknown [id number] 2.16.840.1.140624.3.579.2.173 1937 Unknown [id number] 2.16.840.1.162622.3.579.2.727 1937 Unknown [id number] 2.16.840.1.466061.3.579.2.727 Unknown [id number] [id number] Social History Date Type Detail Facility Start: 09-27-2017 End: 09-07-2023 Tobacco smoking status [facility] Never smoker [facility] Start: 09-27-2017 End: 09-12-2020 Alcohol intake Current non-drinker of alcohol (finding) [place] Start: 1935 Sex Assigned At Not on file [place], [place] Exposure to SARS-CoV -2 (event) Unable to assess [place] Start: 04-03-2020 End: 09-07-2023 Tobacco use and exposure Never used [place] Exposure to SARS-CoV -2 (event) Not sure [place] Exposure to SARS-CoV -2 (event) Yes [place] Start: 09-07-2023 Sex Assigned At [facility] [employer] Other Start: 1935 Sex Assigned At Female F [facility] Start: 09-07-2023 History of Social function [facility] National Score (1-100), lower number is lower risk 63 [facility] Medical Equipment Procedure Code Equipment Code Equipment Origin al Text Equipment Identifier Dates Impl Hip Cover T hr Hole Med Demand [id number] Start: 05-10-2020 Impl Hip Screw Redapt Lk 30mm [id number] Start: 05-10-2020 Impl Hip Screw Redapt Lk 40mm [id number] Start: 05-10-2020 Impl Hip Screw Redapt Lk 30mm [id number] Start: 05-10-2020 Impl Hip Acet Li ner R3 0 Deg 36 X 52 [id number] Start: 05-10-2020 Redapt Modular- Ackerman/Nephew [id number] Start: 05-10-2020 Impl Hip Fem Com p Redapt 240mm Sz 15 [id number] Start: 05-10-2020 Impl Hip Fem Hea d Coblt Chrome 12to14 3 [id number] Start: 05-10-2020 Clinical Notes 05-26-2023 to 09-09-2023 Note Date & Type Note Facility 09-09-2023 Evaluation note Encounter Date Diagnosis Assessment Notes Aug, Acute UTI (ICD-10 - N39.0) Finish antibiotic prescribed at [facility]. 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 [employer] Other [id number] NotePatient Outreach (UROLMN) OVIDIOMEENU ([id number]) 1935 F Date Time Provider Department 09/07/23 RICCO GARLAND During your visit today, we recorded the following information about you: Allergies As of Date: 09/07/2023 (No Known Allergies) Date Reviewed: 09/07/2023 Reviewed by: Karen Calvillo OCCA - Fully Assessed Visit Diagnosis:Screening for genitourinary condition [Z13.89] Order(s):URINALYSIS, REFLEX MICROSCOPIC [[id number]] Order #: [id number]. #:[id number] Prescriptions as of 09/10/2023 - VITAMIN C 500 mg tablet - busPIRone (BUSPAR) 10 mg tablet - calcitriol (ROCALTROL) 0.25 mcg capsule Take 0.25 mcg by mouth. - calcium acetate (CALPHRON) 667 mg tablet - docusate sodium (COLACE) 100 mg capsule Take 100 mg by mouth. - ferrous sulfate 325 mg (65 mg iron) tablet - furosemide (LASIX) 20 mg tablet Take 20 mg by mouth. - hydrALAZINE (APRESOLINE) 25 mg tablet Take 25 mg by mouth. - LORazepam (ATIVAN) 0.5 mg Take 0.5 mg by mouth every 6 hours as needed. - melatonin 10 mg ODT - polyethylene glycol 3350 17 gram packet Take 17 g by mouth. - pravastatin (PRAVACHOL) 10 mg tablet Take 10 mg by mouth. - verapamil SR (CALAN SR) 180 mg CR tablet Take 180 mg by mouth. - diclofenac (VOLTAREN) 1 % topical gel - HYDROcodone-Acetaminophen (NORCO) 10-325 mg per tablet - lactulose 10 gram/15 mL solution - HIGH POTENCY MULTIVITAMIN 400 mcg - estradiol (ESTRACE) 0.01 % (0.1 mg/gram) vaginal cream Use 1 g vaginally one time a week. Problem List As Of Date 09/07/2023 Noted Resolved Abnormal urinalysis [R82.90] 09/07/2023 History of recurrent UTIs [Z87.440] 09/07/2023 Staghorn calculus [N20.0] 09/07/2023 Essential hypertension [I10] 09/07/2023 Constipation [K59.00] 09/07/2023 Arthritis [M19.90] 09/07/2023 Status post hip surgery [Z98.890] 09/07/2023 Encounter Status:Closed by [facility], PROD[facility] on 09/10/23[facility] 09-07-2023 NoteHNO ID: [id number] Author: Ricco Garland MD Service: ? Author Type: Physician Type: Progress Notes Filed: 09/07/2023 7:45 PM Note Text: STAFF UROLOGY NOTE: We had the pleasure of seeing Meenu Nolan in our Mult[facility] today. She is with her daughter who did nearly all the talking since the patient's hearing aids are broken and she has not yet received new ones, so she could hardly hear me. Though not listed in [facility], patient's daughter indicates Dr. Harsh Clayton recommended they come see me for consultation and treatment regarding her left staghorn calculus. My final recommendations will be communicated back to the requesting physician by way of shared Medical record or letter to requesting physician via US mail. She is a pleasant 88 year old female who first had a stone episode a number of years ago but there are no records available in this regard. She has been experiencing recurring UTI's with malaise, low-grade fevers, and confusion as we see in older patients at times, with this type of presentation. These episodes have required hospitalizations. She has grown Proteus in the past according to her few records that I can access in Care Everywhere, suggesting the left staghorn is an infection stone. The patient has no significant incontinence and feels she empties completely. Daughter believes ultrasound PVR has been done but again, we don't have records. Outside CT is available. Patient has chronic renal insufficiency of unknown etiology, according to daughter. Creatinine runs in the 2.2 range according to recent chemistries. She has not had a prior 24-hour urine metabolic evaluation. She has had 0 shockwave lithotripsies, ? 2 ureteroscopies and 0 percutaneous nephrolithotomies She was counseled on the most recent imaging studies. CT Scan Imaging Date: 08/31/23 Stone Side Location Length (mm) Width (mm) HU STSD 1 Left kidney staghorn 41 35 655 2 3 4 5 Renal US or KUB Imaging Date: Stone Side Location Length (mm) Width (mm) 1 2 3 4 5 She was counseled on the options of: 1. Observation - risks including stone growth, stone movement, pain, impact on renal function. Chance of spontaneous stone passage of the largest stone: 0% 2. Shockwave lithotripsy - risks of bleeding (1 in 1000 severe bleed), residual fragments, need for a secondary procedure. Success based on size, location, hounsfield units and wfaw-oe-pechd distance: 0% 3. Ureteroscopy - risks of UTI, ureteral injury (1 in 1000 severe injury requiring major surgery), morbidity from ureteral stent Success: 0% 4. PCNL - risks of lung injury (1%), transfusion (5%), embolization (1%), injury to other organs, need for secondary procedure. Success: 95% Imp: The primary encounter diagnosis was Staghorn calculus. Diagnoses of Abnormal urinalysis, History of recurrent UTIs, Essential hypertension, Constipation, unspecified constipation type, Arthritis, and Status post hip surgery were also pertinent to this visit. Plan: Based on this discussion, she wishes to undergo left PCNL. We will get a nuclear renal scan to assess pre-op baseline renal function. Culture ordered to determine sensitivities. Start some Estrace Cream (daughter agrees this would be easier than a Vagifem insert). There is no prior hx of female malignancies. I did explain that removing the stone might not prevent UTI's if as I suspect there is also a lower urinary tract component and also, we might not be able to remove all the stone although we of course try. Note: Patient uses a walker and can transfer -- prior hip surgeries and arthritis have left her LE weak. I spent >65 minutes in this visit (including reviewing x-rays and records plus patient discussion), with more than 50% of the total [id number] time of the visit devoted to patient counseling/coordination of care. Ricco Garland MD, FACS Director, Surgical Stone Disease, [facility] [place] system support technician, [facility] Pager [phone] 09/07/2023[facility]09-15-2023 Evaluation note* Encounter Date Diagnosis Assessment Notes Treatment Notes Treatment Clinical Notes May, Bilateral impacted cerumen (ICD-10 - H61.23) [employer] Other 08-30-2023 Evaluation note* Encounter Date Diagnosis Assessment Notes Treatment Notes Treatment Clinical Notes Apr, Anxiety, generalized (ICD-10 - F41.1) Lorazepam refilled on 05/22. Nursing states she is stable on this medication. Apr, Chronic kidney disease (CKD) stage G1/A3, glomerular filtration rate (GFR) equal to or greater than 90 mL/min/1.73 square meter and albuminuria creatinine ratio greater than 300 mg/g (ICD-10 - N18.1) Reviewed labs from earlier this summer. Keep followup appts w Nephrology. Apr, Anemia of chronic disease (ICD-10 - D63.8) As above. [employer] Other Evaluation noteNo InformationNort [facility] [employer] Other Evaluation note* Diagnosis Onset Date Resolution Status Acute metabolic encephalopathy acute PRESTON (acute kidney injury) ac debi Constipation acute Dementia acute Hallucinations acute Hypertension acute Right nephrolithiasis acute Staghorn calculus acute UTI (urinary tract infection) acute [facility] Work Phone: Evaluation note* Diagnosis Hydronephrosis with urinary obstruction due to renal calculus- Primary Nephrolithiasis Calculus of kidney [facility] Diagnosis Nephrolithiasis- Primary Calculus of kidney Nephrolithiasis Calculus of kidney documented in this encounter [facility] general Narrative - Reported* Type Description Date Medical History Left foot pain Medical History Anemia of chronic disease Medical History Chronic kidney disea se (CKD) stage G1/A3, glomerular filtration rate (GFR) equal to or greater than 90 mL/min/1.73 square meter and albuminuria creatinine ratio greater than 300 mg/g Medical History Anxiety, generalized Medical History Leg pain, anterior, left Medical History Macular degeneration, bilateral Medical History anxiety Surgical History HYSTERECTOMY Surgical History LEFT KNEE REPLACEMENT Surgical History LEFT HIP REPLACEMENT Surgical History CATARACT Surgical History CHOLECYSTECTOMY Hospitalization History SEE SURGICAL HX TapMyBack Other Reason for referral (narrative)* Diagnostic Procedure Only (Routine) - Pending Review Specialty Diagnoses / Procedures Referred By Contac t Referred To Contact MOLECULAR & FUNCTIONAL IMAGING Diagnoses Hydronephrosis with urinary obstruction due to renal calculus Procedures NM RENAL FLOW/FXN W PHARM KIDNEY IMG MORPHOLOGY VASCULAR FLOW 1 W/RX Ricco Garland MD [address] [place] [address] Molecular & Functional Imaging [address] [place] [address] Referral ID Status Reason Start Date Expiration Date Visits Requested Visits Authorized [id number] Pending Review Auto-Generat ed Referral 3 10/07/2024 1 1 [facility] Advance Directives No Advanced Directives Records FoundDocuments on File Type Date Recorded Patient Rehab Office Coordinator Expl anation Advance Directives and Living Will Power of Tube Drawing Supervisor Documents on File Type Date Recorded Patient Rehab Office Coordinator Expl anation Advance Directives and Living Will Power of Tube Drawing Supervisor Latest Code Status on File Code Status Date Activated Date Inactivated Comments DNR-CCA 04/05/2020 7:40 AM Full Code 04/02/2020 11:53 PM 04/05/2020 7:40 AM Documents on File Type Date Recorded Patient Rehab Office Coordinator Expl anation Advance Directives and Livin g Will Advance Directives and Livin g Will 04/09/2020 4:57 PM Power of Tube Drawing Supervisor Power of Tube Drawing Supervisor 04/09/2020 4:57 PM Latest Code Status on File Code Status Date Activated Date Inactivated Comments DNR-CCA 04/05/2020 7:40 AM 04/06/2020 2:39 PM Full Code 04/02/2020 11:53 PM 04/05/2020 7:40 AM Documents on File Type Date Recorded Patient Rehab Office Coordinator Expl anation ACP-Advance Directive ACP-Advance Directive 04/09/2020 4:57 PM ACP-Power of Tube Drawing Supervisor ACP-Power of Tube Drawing Supervisor 04/09/2020 4:57 PM DNR Documentation 04/09/2020 4:57 PM Latest Code Status on File Code Status Date Activated Date Inactivated Comments Full Code 05/10/2020 3:57 PM Full Code 05/10/2020 10:16 AM 05/10/2020 3:48 PM DNR-CCA 04/05/2020 7:40 AM 04/06/2020 2:39 PM Documents on File Type Date Recorded Patient Rehab Office Coordinator Expl anation ACP-Advance Directive ACP-Advance Directive 04/09/2020 4:57 PM ACP-Do Not Resuscitate 05/16/2020 1:04 PM ACP-Power of Tube Drawing Supervisor ACP-Power of Tube Drawing Supervisor 04/09/2020 4:57 PM DNR Documentation 04/09/2020 4:57 PM Latest Code Status on File Code Status Date Activated Date Inactivated Comments Full Code 05/10/2020 3:57 PM 05/15/2020 9:57 PM Full Code 05/10/2020 10:16 AM 05/10/2020 3:48 PM DNR-CCA 04/05/2020 7:40 AM 04/06/2020 2:39 PM Documents on File Type Date Recorded Patient Rehab Office Coordinator Expl anation ACP-Advance Directive ACP-Advance Directive 04/09/2020 4:57 PM ACP-Advance Directive 06/13/2020 10:59 AM ACP-Do Not Resuscitate 05/16/2020 1:04 PM ACP-Do Not Resuscitate ACP-Do Not Resuscitate 06/13/2020 10:59 AM ACP-Power of Tube Drawing Supervisor ACP-Power of Tube Drawing Supervisor 04/09/2020 4:57 PM DNR Documentation 04/09/2020 4:57 PM Documents on File Type Date Recorded Patient Rehab Office Coordinator Expl anation ACP-Advance Directive ACP-Do Not Resuscitate ACP-Power of Tube Drawing Supervisor ACP-Advance Directive 06/13/2020 10:59 AM ACP-Do Not Resuscitate 06/13/2020 10:59 AM ACP-Do Not Resuscitate 05/16/2020 1:04 PM ACP-Advance Directive 04/09/2020 4:57 PM ACP-Do Not Resuscitate 04/09/2020 4:57 PM ACP-Power of Tube Drawing Supervisor 04/09/2020 4:57 PM Advance Directive Response Recorded Date/ Time Advance Directives No August 31, 2023 8:19pm Reason for Referral Status Reason Specialty Diagnoses / Procedures Referre d By Contact Referred To Contact Open Radiology Diagnoses Chronic kidney disease, stage IV (severe) (HCC) Procedures US RENAL COMPLETE IbHerberth hernandezili U, DO Status Reason Specialty Diagnoses / Procedures Referred By Contact Referred To Contact Open Specialty Services Required Physical Therapy Diagnoses General weakness Ricco Sánchez MD [address] [place] [address], [place] [address] Assessments Diagnosis Chronic kidney disease, stage IV (severe) (HCC) Chronic kidney disease, Stage IV (severe) Diagnosis Closed displaced intertrochanteric fracture of left femur, initial encounter ([facility]) Diagnosis Pain of left hip joint Diagnosis General weakness Other malaise and fatigue Hypokalemia Hypopotassemia Malaise Other malaise and fatigue Cellulitis of right upper extremity Cellulitis and abscess of upper arm and forearm Cellulitis of right upper limb including hand Bacteriuria with pyuria / Low WBCs but 4 plus bacteria Other nonspecific finding on examination of urine Diagnosis Status post total replacement of left hip Periprosthetic intertrochanteric fracture of femur, initial encounter Diagnosis Decubitus ulcer of heel, left, unstageable (HCC) Pressure ulcer, heel Diagnosis Decubitus ulcer of heel, left, unstageable (HCC) Pressure ulcer, heel Pressure injury of left heel, stage 3 (HCC) Diagnosis Decubitus ulcer of heel, left, unstageable (HCC) Pressure ulcer, heel Pressure ulcer of left calf, stage 3 (HCC) Pressure injury of left heel, stage 3 (HCC) Diagnosis Pressure injury of left heel, stage 3 (HCC)- Primary Decubitus ulcer of heel, left, unstageable (HCC) Pressure ulcer, heel Diagnosis Decubitus ulcer of heel, left, unstageable (HCC) Pressure ulcer, heel Pressure injury of left heel, stage 3 (HCC) Pressure ulcer of left calf, stage 3 (HCC) Discharge Instructions * Attachments The following attachments cannot be sent through Care Everywhere. * Hip Fracture: Surgery: Post-op (Eritrean) documented in this encounter* Discharge Instr - Diet* Sofía Esparza RD, LEIF - 04/03/2020 8:30 AM EDT ? Good nutrition is important when healing from an illness, injury, or surgery. Follow any nutrition recommendations given to you during your hospital stay. ? If you were given an oral nutrition supplement while in the hospital, continue to take this supplement at home. You can take it with meals, in-between meals, and/or before bedtime. These supplements can be purchased at most local grocery stores, pharmacies, and chain [employer]-stores. ? If you have any questions about your diet or nutrition, call the hospital and ask for the dietitian. * Discharge Instr - GERALD* Felipa Rey - 04/04/2020 7:28 AM EDT Continuity of Care Form Patient Name: Meenu Nolan : 1935 Admit date: 04/02/2020 Discharge date: 04/06/2020 Code Status Order: DNR-CCA Advance Directives: Admitting Physician: Ricco Sánchez MD PCP: Justino Dhaliwal DO Discharging Nurse: Felipa Rey RN Discharging Hospital Unit/Room#: 0311/0311-01 Discharging Unit Phone Number: [phone] Emergency Contact: Extended Emergency Contact Information Primary Emergency Contact: Isaias Nolan [address]: [address] [place] [id number] Relation: Spouse Secondary Emergency Contact: Maranda Da Silva Relation: Child Past Surgical History: Past Surgical History: Procedure Laterality Date CHOLECYSTECTOMY HYSTERECTOMY JOINT REPLACEMENT knee Immunization History: There is no immunization history on file for this patient. Active Problems: Patient Active Problem List Diagnosis Code General weakness R53.1 Hypokalemia E87.6 Malaise R53.81 Cellulitis of right upper limb including hand L03.113 Bacteriuria with pyuria / Low WBCs but 4 plus bacteria R82.71, R82.81 Isolation/Infection: Isolation No Isolation Patient Infection Status None to display Nurse Assessment: Last Vital Signs: BP (!) 133/57 Pulse 70 Temp 99.1 F (37.3 C) (Temporal) Resp 20 Ht 5' (1.524 m) Wt 154 lb 14.4 oz (70.3 kg) SpO2 91% BMI 30.25 kg/m Last documented pain score (0-10 scale): Pain Level: 5 Last Weight: Wt Readings from Last 1 Encounters: 04/05/20 154 lb 14.4 oz (70.3 kg) Mental Status: disoriented and alert IV Access: - None Nursing Mobility/ADLs: Walking Dependent Transfer Dependent Bathing Dependent Dressing Dependent Toileting Dependent Feeding Independent Sanforizer Assisted Med Delivery whole Wound Care Documentation and Therapy: Elimination: Continence: Bowel: No Bladder: No Urinary Catheter: None Colostomy/Ileostomy/Ileal Conduit: No Date of Last BM: 04/06/2020 Intake/Output Summary (Last 24 hours) at 04/05/2020 1237 Last data filed at 04/05/2020 0918 Gross per 24 hour Intake 1871.3 ml Output Net 1871.3 ml I/O last 3 completed shifts: In: 1751.3 [I.V.:1751.3] Out: - Safety Concerns: At Risk for Falls Impairments/Disabilities: Vision and Hearing Nutrition Therapy: Current Nutrition Therapy: - Oral Diet: Low Sodium (3-4gm) Routes of Feeding: Oral Liquids: Thin Liquids Daily Fluid Restriction: no Last Modified Barium Swallow with Video (Video Swallowing Test): not done Treatments at the Time of Hospital Discharge: Respiratory Treatments: none Oxygen Therapy: is not on home oxygen therapy. Ventilator: - No ventilator support Rehab Therapies: Physical Therapy Weight Bearing Status/Restrictions: No weight bearing restirctions Other Medical Equipment (for information only, NOT a DME order): walker Other Treatments: none Patient's personal belongings (please select all that are sent with patient): None RN SIGNATURE: CASE MANAGEMENT/SOCIAL WORK SECTION Inpatient Status Date: 04/02/2020 Readmission Risk Assessment Score: Readmission Risk Risk of Unplanned Readmission: 15 Discharging to Facility/ Agency Name: [facility] Address:[address] [place] [address] Dialysis Facility (if applicable) Name: Address: Dialysis Schedule: Phone: Fax: Retail Sales Merchandiser/Spud Driller signature: PHYSICIAN SECTION Prognosis: {Prognosis:5677005304} Condition at Discharge: {MH Patient Condition:116001931} Rehab Potential (if transferring to Rehab): {Prognosis:1502724435} Recommended Labs or Other Treatments After Discharge: Physician Certification: I certify the above information and transfer of Meenu Nolan is necessary for the continuing treatment of the diagnosis listed and that she requires [facility] for greater 30 days. Update Admission H&P: {CHP DME Changes in HandP:385014188} PHYSICIAN SIGNATURE: {Esignature:313936065} documented in this encounter* Discharge Instr - GERALD* Nirmala Lanier RN - 05/14/2020 2:28 PM EDT Continuity of Care Form Patient Name: Meenu Nolan : 1935 Admit date: 05/10/2020 Discharge date: 05/15/2020 Code Status Order: Full Code Advance Directives: Advance Care Flowsheet Documentation Date/Time Healthcare Directive Type of Healthcare Directive Copy in Chart Healthcare Agent Appointed Healthcare Agent's Name Healthcare Agent's Phone Number 05/10/20 [id number] Unknown, patient unable to respond due to medical condition -- -- -- -- -- Admitting Physician: Chele Lagos MD PCP: Justino Dhaliwal DO Discharging Nurse: Nirmala WESLEY Discharging Hospital Unit/Room#: 7K-19/019-A Discharging Unit Emergency Contact: Extended Emergency Contact Information Primary Emergency Contact: Isaias Nolan Address: [address] [place] [id number] Relation: Spouse Secondary Emergency Contact: Maranda Da Silva Relation: Child Past Surgical History: Past Surgical History: Procedure Laterality Date CHOLECYSTECTOMY HYSTERECTOMY JOINT REPLACEMENT knee REVISION TOTAL HIP ARTHROPLASTY Left 05/10/2020 HARDWARE REMOVAL LEFT HIP, CONVERSION TO LEFT TOTAL HIP performed by Chele Lagos MD at [facility] OR Immunization History: There is no immunization history on file for this patient. Active Problems: Patient Active Problem List Diagnosis Code General weakness R53.1 Hypokalemia E87.6 Malaise R53.81 Cellulitis of right upper limb including hand L03.113 Bacteriuria with pyuria / Low WBCs but 4 plus bacteria R82.71, R82.81 Periprosthetic intertrochanteric fracture of femur M97.8XXA, Z96.649 Isolation/Infection: Isolation No Isolation Patient Infection Status Infection Onset Added Last Indicated Last Indicated By Review Planned Expiration Resolved Resolved By None active Resolved COVID-19 Rule Out 05/10/20 05/10/20 05/10/20 COVID-19 (Ordered) 05/10/20 Rule- Out Test Resulted Nurse Assessment: Last Vital Signs: BP (!) 144/66 Pulse 81 Temp 98.6 F (37 C) (Oral) Resp 16 Ht 5' 3 (1.6 m) Wt 153 lb 9.6 oz (69.7 kg) SpO2 98% BMI 27.21 kg/m Last documented pain score (0-10 scale): Pain Level: 5 Last Weight: Wt Readings from Last 1 Encounters: 05/10/20 153 lb 9.6 oz (69.7 kg) Mental Status: oriented and alert IV Access: - None Nursing Mobility/ADLs: Walking Assisted Transfer Assisted Bathing Assisted Dressing Assisted Toileting Assisted Feeding Independent Sanforizer Assisted Med Delivery whole Wound Care Documentation and Therapy: Wound 05/11/20 Heel Left;Posterior (Active) Wound Pressure Unstageable 05/14/20 0751 Wound Assessment Red;Black 05/14/20 1145 Drainage Amount None 05/14/20 0359 Odor None 05/14/20 0359 Corrine-wound Assessment Red 05/14/20 1145 Number of days: 3 Wound 05/11/20 Heel Right;Posterior (Active) Wound Pressure Unstageable 05/12/20 0845 Wound Assessment Black;Red 05/14/20 1145 Odor None 05/14/20 0359 Corrine-wound Assessment Red 05/14/20 1145 Number of days: 3 Elimination: Continence: Bowel: Yes Bladder: Yes Urinary Catheter: None Colostomy/Ileostomy/Ileal Conduit: No Date of Last BM: Intake/Output Summary (Last 24 hours) at 05/14/2020 1428 Last data filed at 05/14/2020 1212 Gross per 24 hour Intake 915.13 ml Output 1000 ml Net -84.87 ml I/O last 3 completed shifts: In: 905 [P.O.:905] Out: 1400 [Urine:1400] Safety Concerns: At Risk for Falls Impairments/Disabilities: Hearing Nutrition Therapy: Current Nutrition Therapy: - Oral Diet: General Routes of Feeding: Oral Liquids: No Restrictions Daily Fluid Restriction: no Last Modified Barium Swallow with Video (Video Swallowing Test): not done Treatments at the Time of Hospital Discharge: Respiratory Treatments: n/a Oxygen Therapy: is not on home oxygen therapy. Ventilator: - No ventilator support Rehab Therapies: Physical Therapy and Occupational Therapy Weight Bearing Status/Restrictions: No weight bearing restirctions Other Medical Equipment (for information only, NOT a DME order): walker Other Treatments: n/a Patient's personal belongings (please select all that are sent with patient): None RN SIGNATURE: CASE MANAGEMENT/SOCIAL WORK SECTION Inpatient Status Date: 05/10/20 Readmission Risk Assessment Score: Readmission Risk Risk of Unplanned Readmission: 20 Discharging to Facility/ Agency Name: [facility] Address: [address] [place] [id number] Dialysis Facility (if applicable) Name: Address: Dialysis Schedule: Phone: Fax: Retail Sales Merchandiser/Spud Driller signature: ICIAN SECTION Prognosis: Fair Condition at Discharge: Stable Rehab Potential (if transferring to Rehab): Fair Recommended Labs or Other Treatments After Discharge: n/a Physician Certification: I certify the above information and transfer of Meenu Nolan is necessary for the continuing treatment of the diagnosis listed and that she requires [facility] for greater 30 days. Update Admission H&P: No change in H&P PHYSICIAN SIGNATURE: * Additional Instructions* Sylvia Monte APRN - CNP - 05/10/2020 DR. LAGOS DISCHARGE INSTRUCTIONS Dr. Chele Lagos MD ACTIVITY / WEIGHTBEARING INSTRUCTIONS: Weightbearing as tolerated left lower extremity. PT/OT DIET: Increase Fluid/Water intake, eat foods high in fiber, fruits and vegetables to help to prevent constipation. WOUND/DRESSING INSTRUCTIONS: Always ensure you wash your hands before and after caring for your wound/dressing. Keep your dressing clean and dry. Change dressing as needed. Can wash around incision. If prineo (mesh tape dressing) in place, this may be removed after 3 weeks. You may shower with prineo dressing if no active drainage coming from incision. Do not let shower water directly hit the incision. Dry completely. Do not place antibiotic ointment, lotion, creams on surgical incision. Smoking impairs adequate wound healing. If smoking, consider quitting. May apply ice to surgical incision to help to prevent swelling. MEDICATION INSTRUCTIONS: Take pain medication as prescribed. See orders regarding resuming your home medications and any new medications. Continue blood thinner if ordered by your physician. FOLLOW-UP CARE: If a follow-up appointment was not made for you at discharge, call [phone] ([place] office) or [phone] ([place] office) to schedule an appointment for [address] Lagos's office with any concerns. Signs of infection such as fever, chills, redness, pus, or bad smelling discharge from incision site. Excessive bleeding, swelling, increasing pain, or discharge around incision site. The stitches or vivi come apart at the incision site. Cough shortness of breath, or chest pain. Severe nausea or vomiting. Pain that you cannot control with the medications you have been given or pain becomes worse. Numbness, tingling, or loss of feeling in your leg, knee, or foot. Pain, burning, urgency, or frequency of urination. If a medical emergerncy, please call 911 or go to your local emergency room. * Attachments The following attachments cannot be sent through Care Everywhere. * Hip Replacement: Posterior: Precautions: Post-op (Eritrean) * Hip Replacement Surgery: Posterior: Post-op (Eritrean) documented in this encounter* Instructions* Leta Irwin RN - 05/30/2020 Wound Management Patient Discharge Instructions CALL [phone] for questions regarding care of your wounds. OFFICE HOURS ARE TUESDAYS MORNINGS AND THURSDAYS(9-2:30) and subject to change without notice PLEASE ARRIVE PRIOR TO APPOINTMENT TIME TO COMPLETE REGISTRATION PROCESS Discharge instructions for the patient's plan of care. Wound care: Apply silver collagen dressing to left lower leg. Apply Tegaderm/Opsite dressing to left heel. Cover with dry gauze dressings. Change dressings every 3 days. Apply zinc paste to right heel every 3 days at dressing changes. Obtain and wear heel lift boot to bilateral feet at all times. Follow- up in 2 weeks. Clinic will call to set up this appointment. Next appointment: No future appointments. Comments: We hope we gave you VERY GOOD care today! documented in this encounter* Instructions* Mary Newman RD, LD - 06/13/2020 Pressure Injuries: Care Instructions Your Care Instructions A pressure injury on the skin is caused by constant pressure to that area. These injuries also called decubitus ulcers or bedsores may happen when you lie in bed or sit in a wheelchair for a long time. The constant pressure blocks the blood supply to the skin. This causes skin cells to and creates a sore. Pressure injuries usually occur over bony areas, such as the hips, lower back, elbows, heels, and shoulders. They also can occur in places where the skin folds over on itself. You may havemild redness or open sores that are harder to heal. Good care at home can help heal pressure injuries. You or your caregiver needs to check your skin every day for sores. You need good nutrition and plenty of fluids to keep your skin healthy and prevent new pressure injuries. Follow-up care is a norris part of your treatment and safety. Be sure to make and go to all appointments, and call your doctor if you are having problems. It's also a good idea to know your test resultsand keep a list of the medicines you take. How can you care for yourself at home? If your doctor prescribed a medicated ointment or cream, use it exactly as prescribed. Call your doctor if you think you are having a problem with your medicine. Wash pressure injuries every day, or as often as your doctor recommends. Most tap water is safe, but follow the advice of your doctor or nurse. He or she may recommend that you use a saline solution.This is a salt and water solution that you can buy over the counter. Put on bandages as your doctor or outside event sales specialist says. Keep healthy tissue around the sore clean and dry. Check your skin every day for sores (or have a caregiver do it). If you know what is causing the pressure that caused the sore, find a way to remove that pressure. To prevent pressure injuries Change your position or have your caregiver help you change your position often. You may need to dothis every 2 hours if you are in bed or every 15 minutes if you are in a wheelchair. This lowers the chance of making sores worse and getting new sores. Use special mattresses or other support. These may include low-pressure mattresses or cushions madeof foam that can be filled with air, water, beads, or fiber. Eat healthy foods with plenty of protein to help heal damaged skin and to help new skin grow. Try to stay at a healthy weight. Being overweight can lead to more pressure on your skin. Do not slide across sheets or slump in a chair or bed. Do not smoke. Smoking dries the skin and reduces its blood supply. If you need help quitting, talk to your doctor about stop-smoking programs and medicines. These can increase your chances of quitting for good. When should you call for help? Call your doctor now or seek immediate medical care if: You have signs of infection, such as: ? Increased pain, swelling, warmth, or redness. ? Red streaks leading from the sore. ? Pus draining from the sore. ? A fever. Watch closely for changes in your health, and be sure to contact your doctor if: Your pressure injuries are not healing. You have new pressure injuries. You need help changing positions in bed or in a chair. Your caregiver needs help to move you. Where can you learn more? Go to https://[email or web address].setObject.org and sign in to your [employer] account. Enter F114 in the Search Health Information box to learn more about Pressure Injuries: Care Instructions. If you do not have an account, please click on the Sign Up Now link. Current as of: November 29, 2019 Content Version: 12.5 [employer]. Care instructions adapted under license by [employer]. If you have questions about a medical condition or this instruction, always ask your healthcare professional. [employer] disclaims any warranty or liability for your use of this information. Wound Management Patient Discharge Instructions CALL [phone] for questions regarding care of your wounds. OFFICE HOURS ARE TUESDAYS MORNINGS AND THURSDAYS(9-2:30) and subject to change without notice PLEASE ARRIVE PRIOR TO APPOINTMENT TIME TO COMPLETE REGISTRATION PROCESS Discharge instructions for the patient's plan of care. Wound care:discontinue previous dressing care Apply silver collagen to left posterior leg and heel and cover with adhesive foam dressing. Change every 2 days and wash with soap and water at every dressing change Wear foam heel lift boots at all times except when walking Next appointment: Future Appointments Date Time Provider Department Center 06/27/2020 10:45 AM NORAH Cruz Nutrition Therapy Recommendations- 1. Continue to have 3 well balanced meals with a variety of lean meats, fresh fruits, vegetables, whole grains and low fat dairy. 2. Continue daily multivitamin with minerals and Laurie to assist with wound healing needs. 3. Include protein foods with meals and snacks to aid healing needs (eggs, fish, chicken, etc.) Comments: We hope we gave you VERY GOOD care today! documented in this encounter* Instructions* Crystal Jones RN - 06/27/2020 Wound Management Patient Discharge Instructions CALL [phone] for questions regarding care of your wounds. OFFICE HOURS ARE Tuesdays AND THURSDAYS(9-2:30) and subject to change without notice PLEASE ARRIVE PRIOR TO APPOINTMENT TIME TO COMPLETE REGISTRATION PROCESS Discharge instructions for the patient's plan of care. Wound care:apply silver collagen to left heel and posterior lower leg and cover with adhesive foam.Change every 2 days and wash with soap and water at every dressing change Wear appropriate heel lift boots as ordered at 1st visit at all times except with ambulation Next appointment: Future Appointments Date Time Provider Department Center 07/18/2020 10:45 AM NORAH Cruz Comments: We hope we gave you VERY GOOD care today! documented in this encounter* Instructions* Crystal Jones RN - 07/18/2020 Wound Management Patient Discharge Instructions CALL [phone] for questions regarding care of your wounds. OFFICE HOURS ARE Tuesdays AND THURSDAYS(92:30) and subject to change without notice PLEASE ARRIVE PRIOR TO APPOINTMENT TIME TO COMPLETE REGISTRATION PROCESS Discharge instructions for the patient's plan of care. Wound care:Patient would like her pain med on a more regular basis. Complained of pain multiple times during visit and c/o not being able to sleep Should wear heel lift boot at all times, except with ambulation Continue treatment of silver collagen and foam dressing, change every 2 days and wash with soap andwater at every dressing change to left posterior leg and left heel No shoe gear except with ambulation Next appointment: Future Appointments Date Time Provider Department Center 08/15/2020 10:30 AM NORAH Cruz Comments: We hope we gave you VERY GOOD care today! documented in this encounter* Instructions* Leta Irwin RN - 09/12/2020 Wound Management Patient Discharge Instructions CALL [phone] for questions regarding care of your wounds. OFFICE HOURS ARE Tuesdays AND THURSDAYS(9-2:30) and subject to change without notice PLEASE ARRIVE PRIOR TO APPOINTMENT TIME TO COMPLETE REGISTRATION PROCESS Discharge instructions for the patient's plan of care. Wound care: Bactroban and foam border applied to left heel today. Pull back dressing and apply bactroban to left heel daily for 5 days and then discontinue dressing care. Continue to wear foam boots daily for 2 weeks. Return to clinic as needed. Next appointment: No future appointments. Comments: We hope we gave you VERY GOOD care today! documented in this encounter* Instructions* Crystal Jones RN - 08/15/2020 Wound Management Patient Discharge Instructions CALL [phone] for questions regarding care of your wounds. OFFICE HOURS ARE Tuesdays AND THURSDAYS(9-2:30) and subject to change without notice PLEASE ARRIVE PRIOR TO APPOINTMENT TIME TO COMPLETE REGISTRATION PROCESS Discharge instructions for the patient's plan of care. Wound care:Discontinue previous treatment to left heel and leg Apply Bactroban ointment daily to left heel and posterior lower leg and cover with dry dressing. Change daily and wash with soap and water at every dressing change DO NOT PUT SHOE ON LEFT FOOT HEEL LIFT BOOT TO LEFT FOOT AT ALL TIMES Next appointment: Future Appointments Date Time Provider Department Center 09/12/2020 10:45 AM NORAH Cruz Comments: We hope we gave you VERY GOOD care today! documented in this encounter Hospital Course Note Admission Information Patien t: Meenu Cha Ovidio : 1935 Admission date: 02/09/2020 Discharge date: 02/15/2020 CODE STATUS: full code PCP: Justino Dhaliwal DO Consult: Dr. Jordan (ortho) Diagnoses: 1. intertrochanteric fracture of the left hip 2. Delirium 3. Kidney disease stage III 4. Renal osteodystrophy 5. Hypertension 6. Electrolyte abnormalities 7. Head laceration Hospital Course Patient is an 84-year-old female that was admitted for a left intertrochanteric hip fracture following a fall. There is noted shortening without rotation left lower extremity. There is also a small scabbed area with dried blood on posterior superior scalp without sutures or vivi. Patient is scheduled for surgery on 02/10/[address] Jordan. Patient underwent left hip intramedullary nailing on 02/10/2020 without complications. Consult placed to nephrology for management of CKD, patient evaluated by Dr. Chew. Patient with acute delirium and has been started on Seroquel. Seroqu (more content not included)... History of Present Illness * Yolanda Mansfield RN - 04/06/2020 11:59 AM EDT Called [facility], once paperwork is faxed will be approximately 30 to 45 minutes for pickup. Husbandat bedside will update. * Yolanda Mansifeld RN - 04/06/2020 8:38 AM EDT returned call, he will be in to see pt around 1000. Will wait to discharge pt until he has seen her. * Yolanda Mansfield RN - 04/06/2020 8:30 AM EDT Called pts to let him know that pt is discharged back to [facility]. Voicemail left for to return call. * Felipa Rey - 04/06/2020 7:53 AM EDT Pt was awake in chair with personal alarm. Morning assessment and vitals completed, see flow chart for details. Patient was not in pain (FLACC scale). Pt stated she was feeling better. Tray table andcall light within reach. No further needs at this time. Will continue to monitor. * Yolanda Mansfield RN - 04/06/2020 7:[address] Sánchez at bedside. * Ricco Sánchez MD - 04/05/2020 4:29 PM EDT Progress Note SUBJECTIVE: FU related to Still some confusion. Limited activity. Limited oral intake. OBJECTIVE: Vitals: TEMPERATURE: Current - Temp: 97.3 F (36.3 C); Max - Temp Av.4 F (36.9 C) Min: 97.3 F (36.3 C) Max: 99.1 F (37.3 C) RESPIRATIONS RANGE: Resp Av Min: 18 Max: 22 PULSE RANGE: Pulse Av.7 Min: 60 Max: 73 BLOOD PRESSURE RANGE: Systolic (24hrs), Av , Min:126 , Max:146 ; Diastolic (24hrs), Av, Min:43, Max:69 PULSE OXIMETRY RANGE: SpO2 Av.3 % Min: 91 % Max: 94 % 24HR INTAKE/OUTPUT: Intake/Output Summary (Last 24 hours) at 04/05/2020 1631 Last data filed at 04/05/2020 1415 Gross per 24 hour Intake 1871.3 ml Output Net 1871.3 ml Exam: General: Confused but better than yesterday HEENT: Supple neck & negative Heart: Regular Lungs: clear to auscultation bilaterally & no retractions Abdomen: Normal & soft, No tenderness and BS normal Extremities: Trace ankle edema. Right wrist still has little bit of redness with some tenderness and synovitis around the area on the right wrist. There is. Elbow motion is a little bit reduced Neuro: NonFocal Diagnostic Data: Lab Results Component Value Date WBC 17.9 (H) 04/05/2020 HGB 10.0 (L) 04/05/2020 PLT 497 (H) 04/05/2020 Lab Results Component Value Date BUN 24 (H) 04/05/2020 CREATININE 1.16 (H) 04/05/2020 NA 142 04/05/2020 K 3.3 (L) 04/05/2020 CALCIUM 8.4 (L) 04/05/2020 CL 102 04/05/2020 CO2 24 04/05/2020 LABGLOM 45 (L) 04/05/2020 Lab Results Component Value Date WBCUA 2 TO 5 04/02/2020 RBCUA 0 TO 2 04/02/2020 EPITHUA 0 TO 2 04/02/2020 LEUKOCYTESUR NEGATIVE 04/02/2020 SPECGRAV 1.025 (H) 04/02/2020 GLUCOSEU NEGATIVE 04/02/2020 KETUA NEGATIVE 04/02/2020 PROTEINU 1+ (A) 04/02/2020 HGBUR 1+ (A) 04/02/2020 CASTUA NOT REPORTED 04/02/2020 CRYSTUA NOT REPORTED 04/02/2020 BACTERIA 4+ (A) 04/02/2020 YEAST NOT REPORTED 04/02/2020 Lab Results Component Value Date TROPONINT NOT REPORTED 04/02/2020 Xr Chest 1 Vw Result Date: 04/02/2020 EXAMINATION: ONE XRAY VIEW OF THE CHEST 04/02/2020 2:26 pm COMPARISON: February 09, 2020 HISTORY: ORDERINGSYSTEM PROVIDED HISTORY: General malaise rule out pneumonia TECHNOLOGIST PROVIDED HISTORY: General malaise rule out pneumonia FINDINGS: No lines or tubes. Normal cardiomediastinal silhouette. Lower lung volumes. The lungs are clear without focal consolidation or pleural effusion. No suspicious pulmonary nodules. No pulmonary edema. No pneumothorax. No acute osseous abnormality. No acute cardiopulmonary disease. ASSESSMENT: Principal Problem: Cellulitis of right upper limb including hand Active Problems: General weakness Hypokalemia Malaise Bacteriuria with pyuria / Low WBCs but 4 plus bacteria Resolved Problems: * No resolved hospital problems. * Patient Active Problem List Diagnosis Date Noted Bacteriuria with pyuria / Low WBCs but 4 plus bacteria 04/03/2020 General weakness 04/02/2020 Hypokalemia 04/02/2020 Malaise 04/02/2020 Cellulitis of right upper limb including hand 04/02/2020 PLAN: IV antibiotics, appropriate care, therapy, diet. Critical Care Time: 0 Ricco Sánchez M.D. * Yolanda Harvey OTA - 04/05/2020 7:53 AM EDT Occupational Therapy Facility/Department: [facility] Daily Treatment Note NAME: Meenu Nolan : 1935 Date of Service: 04/05/2020 Discharge Recommendations: Continue to assess pending progress, Subacute/[facility], Patient would benefit from continued therapy after discharge Assessment Activity Tolerance Activity Tolerance: Patient limited by pain;Patient limited by fatigue Safety Devices Safety Devices in place: Yes Type of devices: Left in bed;Call light within reach;Bed alarm in place Patient Diagnosis(es): The primary encounter diagnosis was General weakness. Diagnoses of Hypokalemia, Malaise, and Cellulitis of right upper extremity were also pertinent to this visit. has a past medical history of Chronic kidney disease and Hypertension. has a past surgical history that includes Hysterectomy; joint replacement; and Cholecystectomy. Restrictions Restrictions/Precautions Restrictions/Precautions: General Precautions, Fall Risk Subjective General Chart Reviewed: Yes Patient assessed for rehabilitation services?: Yes Family / Caregiver Present: No Referring Practitioner: TOLU Borja Diagnosis: Cellulitus Subjective Subjective: Pt asleep in bed upon LATHAM arrival and required tactile and VCs to arouse. Im at the hospital . General Comment Comments: Pt participated in bed bath this date, unable to sit EOB citing pain. Pain Assessment Pain Assessment: 0-10 Pain Level: 5 Pain Type: Acute pain Pain Location: Wrist;Neck Pain Orientation: Right Pain Descriptors: Aching Pain Frequency: Intermittent Pre Treatment Pain Screening Comments / Details: Pt reports My wrist hurts a lot, my neck hurts a little . Unable to rate this AM. Vital Signs Patient Currently in Pain: Yes Orientation Objective ADL Feeding: Setup(Staff set up pt tray and pt sat supported HOB raised to eat. Pt utilized implements to feed self (I) with decreased accuracy.) Grooming: Moderate assistance(Max VCs for participation) UE Bathing: Minimal assistance(Max VCs for participation) LE Bathing: Dependent/Total( I cant reach down to my legs ) Bed mobility Rolling to Left: Minimal assistance Rolling to Right: Minimal assistance Supine to Sit: Maximum assistance Sit to Supine: Maximum assistance Scooting: Maximal assistance Comment: Pt unable to sit unsupported EOB d/t pain in neck Transfers Transfer Comments: not assessed due to decreased safety and ability to carryout tasks as well as c/o pain in neck Plan Plan Times per week: 7x/week Times per day: Daily Current Treatment Recommendations: Strengthening, Endurance Training, Patient/Caregiver Education & Training, Self-Care / ADL, Balance Training, Functional Mobility Training, Safety Education & Training G-Code OutComes Score AM-PAC Score Goals Short term goals Time Frame for Short term goals: 10 visits Short term goal 1: Pt will engage in greater than 15 minutes BUE therex/theract to increase UB strength for increased independence wtih ADL and functional transfers/tasks. Short term goal 2: Pt will complete grooming ADL tasks with Cyn to increase ability to complete ADL tasks. Short term goal 3: Pt will sit at EOB with CGA x5 minutes to increase endurance and trunk control for participation in ADL and functional tasks. Short term goal 4: Pt will engage in TB ADL with minimal prompting and assistance to increase participation in functional tasks. Therapy Time Individual Concurrent Group Co-treatment Time In 07 Time Out 0759 Minutes 24 JAE Simpson * Kelsey Boone RN - 04/05/2020 12:30 AM EDT Second vital signs and assessment completed at this time. Pt easily aroused but will not follow commands. States leave me alone and get out. Lung sounds clear throughout all lobes and bowel sounds active in all quadrants. Offered patient water and applesauce at this time. Pt declines both. Resting comfortably in bed with call light and belongings within reach. Will continue to monitor. * Kelsey Boone RN - 04/04/2020 7:56 PM EDT Pt incontinent of urine at this time. Brief changed and patient repositioned. Offered to feed patient applesauce. Pt yelled, No, I don't want that applesauce. Will attempt again at a later time. * Kelsey Boone RN - 04/04/2020 6:50 PM EDT Vital signs and assessment completed at this time. Pt uncooperative with assessment. Eyes closed upon auto service writer entering room, easily aroused. Pt yells at auto service writer to leave her alone. Pt tachypneic withrespirations at 22. Lung sounds clear upon auscultation. Pt oriented to person, disoriented x3. Pressure sores to bilateral heels. Elevated with pillows at this time. Pt yelling nonsensical states throughout assessment. Resting with eyes closed and call light and belongings within reach. Will continue to monitor. * Alicia Miller RN - 04/04/2020 5:17 PM EDT Patient has not eaten any meals today. Bar Supervisor attempted to help feed the patient. Patient refused. * Robinson Ellsworth PTA - 04/04/2020 2:38 PM EDT Physical Therapy Facility/Department: [facility] Daily Treatment Note NAME: Meenu Nolan : 1935 Date of Service: 04/04/2020 Discharge Recommendations: Continue to assess pending progress, Subacute/[facility], ECF with PT, Patient would benefit from continued therapy after discharge Assessment Assessment: Treatment limited today d/t fatigue and impaired mental status, Supine ex completed only d/t Pt fatigue. Treatment Diagnosis: generalized weakness Patient Education: Educated Pt/ on importance of HEP. REQUIRES PT FOLLOW UP: Yes Activity Tolerance Activity Tolerance: Patient limited by cognitive status Patient Diagnosis(es): The primary encounter diagnosis was General weakness. Diagnoses of Hypokalemia, Malaise, and Cellulitis of right upper extremity were also pertinent to this visit. has a past medical history of Chronic kidney disease and Hypertension. has a past surgical history that includes Hysterectomy; joint replacement; and Cholecystectomy. Restrictions Restrictions/Precautions Restrictions/Precautions: General Precautions, Fall Risk Subjective General Chart Reviewed: Yes Subjective Subjective: Pt slightly confused througout full session. Pt denies current rudy at rest but states she has to get up and get and start walking again . Orientation Orientation Overall Orientation Status: Impaired Cognition Objective Ambulation Ambulation?: No Exercises Straight Leg Raise: 15x Hip Flexion: 15x Hip Abduction: 15x Knee Short Arc Quad: 15x Ankle Pumps: 15x2 Comments: All ex completed today in supine with therapist assist. AAROM as needed. Goals Short term goals Time Frame for Short term goals: 10 days Short term goal 1: Pt will perform bed mobility with CGA to decrease level of caregiver assistance. Short term goal 2: Pt will perform transfers with Cyn to improve functional mobility. Short term goal 3: Pt will ambulate 50ft with RW and Cyn to improve functional ambulation. Short term goal 4: Pt will tolerate 20-30mins ther ex/act to improve endurance for ADLs and functional tasks. Plan Plan Times per week: 7 days per week Times per day: Twice a day(Daily on weekends) Current Treatment Recommendations: Strengthening, ADL/Self-care Training, Gait Training, Patient/Caregiver Education & Training, ROM, IADL Training, Balance Training, Neuromuscular Re-education, Functional Mobility Training, Endurance Training, Home Exercise Program, Transfer Training, Manual Therapy - Soft Tissue Mobilization, Safety Education & Training Safety Devices Type of devices: All fall risk precautions in place, Bed alarm in place, Call light within reach, Left in bed, Patient at risk for falls Therapy Time Individual Concurrent Group Co-treatment Time In 1411 Time Out 1435 Minutes 24 Robinson Ellsworth PTA * Alicia Miller RN - 04/04/2020 2:30 PM EDT Patient changed and repositioned in the bed. Bed bath given at this time. * Jessie Laurent LSW - 04/04/2020 1:38 PM EDT Patient is approved by insurance to return to [facility]. SAAD Hough * Caprice Echeverria RN - 04/04/2020 11:12 AM EDT PALLIATIVE CARE is visiting with Meenu. Meenu is very confused. She is talking but seems to believe sheis on the phone. She reaches up into the air at times, picking at the air. Discussion held with regarding ACP. states that they have a living will and DPOAHC, believing that their PCP has the copy telling me that his office is closed today. ACP note completed. He tells me that their daughter usually receives the medical information, but that he wants to be the health care decision maker for his . Reviewed current plan of care in regards to IV antibiotics. He is concerned that she was given pain medication or something else that has made her more confused. Tells me that she has been at [facility] for 6 weeks now for therapy after a fractured hip. Her confusion has gradually gotten worse, more so lately. Support given. states that she has been unable to walk lately, which is the reason she was brought to the hospital. Admitted with cellulitis. Spiritual screening done. Tells me that the assistant construction superintendent visited with them yesterday. Denies any spiritual needs at this time. Emotional support given. DNR paper order form to be placed on paper chart for signature. Will continue to follow and support. Caprice Echeverria RN, [facility] Palliative Care Nurse Coordinator 04/04/2020 11:24 AM * Alicia Miller RN - 04/04/2020 9:04 AM EDT Patient resting quietly in bed. No complaints at this time. Patient tolerated medications well. * Alicia Miller RN - 04/04/2020 8:45 AM EDT Patient refuses breakfast at this time. * Natalie Guzman PTA - 04/04/2020 8:39 AM EDT Physical Therapy Facility/Department: [facility] Daily Treatment Note NAME: Meenu Nolan : 1935 Date of Service: 04/04/2020 Discharge Recommendations: Continue to assess pending progress, Subacute/[facility], ECF with PT, Patient would benefit from continued therapy after discharge Assessment Treatment Diagnosis: generalized weakness Prognosis: Good REQUIRES PT FOLLOW UP: Yes Activity Tolerance Activity Tolerance: Patient limited by cognitive status Patient Diagnosis(es): The primary encounter diagnosis was General weakness. Diagnoses of Hypokalemia, Malaise, and Cellulitis of right upper extremity were also pertinent to this visit. has a past medical history of Chronic kidney disease and Hypertension. has a past surgical history that includes Hysterectomy; joint replacement; and Cholecystectomy. Restrictions Restrictions/Precautions Restrictions/Precautions: General Precautions, Fall Risk Subjective General Chart Reviewed: Yes Subjective Subjective: Assisted OT (German) with transfer. Pt pleasantly confused and requesting to sit in the wheelchair. Orientation Orientation Overall Orientation Status: Impaired Orientation Level: Disoriented to place;Disoriented to time;Disoriented to situation Cognition Objective Bed mobility Rolling to Left: Maximum assistance Supine to Sit: Maximum assistance;2 Person assistance Scooting: Maximal assistance;2 Person assistance Ambulation Ambulation?: No(Nursing refused d/t safety concern.) Exercises Straight Leg Raise: x10 Hip Flexion: x10 Hip Abduction: x10 Knee Long Arc Quad: x2-3 Comments: Pt completed hip flex and LAQ on BLEs while seated EOB. Pt able to keep self stable whileseated EOB. Pt also completed few supine therex. Resistance noted with hip abd and ankle pumps withno assistance noted from pt. Tx ended at this time d/t pt lethargic and poor response to cues. Goals Short term goals Time Frame for Short term goals: 10 days Short term goal 1: Pt will perform bed mobility with CGA to decrease level of caregiver assistance. Short term goal 2: Pt will perform transfers with Cyn to improve functional mobility. Short term goal 3: Pt will ambulate 50ft with RW and Cyn to improve functional ambulation. Short term goal 4: Pt will tolerate 20-30mins ther ex/act to improve endurance for ADLs and functional tasks. Plan Plan Times per week: 7 days per week Times per day: Twice a day(Daily on weekends) Current Treatment Recommendations: Strengthening, ADL/Self-care Training, Gait Training, Patient/Caregiver Education & Training, ROM, IADL Training, Balance Training, Neuromuscular Re-education, Functional Mobility Training, Endurance Training, Home Exercise Program, Transfer Training, Manual Therapy - Soft Tissue Mobilization, Safety Education & Training Safety Devices Type of devices: All fall risk precautions in place, Bed alarm in place, Call light within reach, Left in bed, Patient at risk for falls, Nurse notified Therapy Time Individual Concurrent Group Co-treatment Time In 0816 Time Out 0839 Minutes 23 Natalie Guzman PTA * Ricco Sánchez MD - 04/04/2020 8:08 AM EDT Progress Note SUBJECTIVE: FU related to / doing better but confusion OBJECTIVE: Vitals: TEMPERATURE: Current - Temp: 99.1 F (37.3 C); Max - Temp Av F (37.2 C) Min: 98.7 F (37.1 C) Max: 99.4 F (37.4 C) RESPIRATIONS RANGE: Resp Av Min: 16 Max: 20 PULSE RANGE: Pulse Av.3 Min: 79 Max: 91 BLOOD PRESSURE RANGE: Systolic (24hrs), Av , Min:141 , Max:147 ; Diastolic (24hrs), Av, Min:48, Max:68 PULSE OXIMETRY RANGE: SpO2 Av.5 % Min: 93 % Max: 94 % 24HR INTAKE/OUTPUT: Intake/Output Summary (Last 24 hours) at 04/04/2020 0808 Last data filed at 04/04/2020 0411 Gross per 24 hour Intake 2192 ml Output Net 2192 ml Exam: General: confused HEENT: Supple neck & negative Heart: Regular Lungs: clear to auscultation bilaterally & no retractions Abdomen: Normal & soft, No tenderness and BS normal Extremities: Right arm warm and still red at wrist and elbow area. nonfocal Neuro: NonFocal Diagnostic Data: Lab Results Component Value Date WBC 17.6 (H) 04/03/2020 HGB 10.8 (L) 04/03/2020 PLT 455 (H) 04/03/2020 Lab Results Component Value Date BUN 30 (H) 04/03/2020 CREATININE 1.17 (H) 04/03/2020 NA 140 04/03/2020 K 3.5 (L) 04/03/2020 CALCIUM 9.0 04/03/2020 CL 96 (L) 04/03/2020 CO2 26 04/03/2020 LABGLOM 44 (L) 04/03/2020 Lab Results Component Value Date WBCUA 2 TO 5 04/02/2020 RBCUA 0 TO 2 04/02/2020 EPITHUA 0 TO 2 04/02/2020 LEUKOCYTESUR NEGATIVE 04/02/2020 SPECGRAV 1.025 (H) 04/02/2020 GLUCOSEU NEGATIVE 04/02/2020 KETUA NEGATIVE 04/02/2020 PROTEINU 1+ (A) 04/02/2020 HGBUR 1+ (A) 04/02/2020 CASTUA NOT REPORTED 04/02/2020 CRYSTUA NOT REPORTED 04/02/2020 BACTERIA 4+ (A) 04/02/2020 YEAST NOT REPORTED 04/02/2020 Lab Results Component Value Date TROPONINT NOT REPORTED 04/02/2020 Xr Chest 1 Vw Result Date: 04/02/2020 EXAMINATION: ONE XRAY VIEW OF THE CHEST 04/02/2020 2:26 pm COMPARISON: February 09, 2020 HISTORY: ORDERINGSYSTEM PROVIDED HISTORY: General malaise rule out pneumonia TECHNOLOGIST PROVIDED HISTORY: General malaise rule out pneumonia FINDINGS: No lines or tubes. Normal cardiomediastinal silhouette. Lower lung volumes. The lungs are clear without focal consolidation or pleural effusion. No suspicious pulmonary nodules. No pulmonary edema. No pneumothorax. No acute osseous abnormality. No acute cardiopulmonary disease. ASSESSMENT: Principal Problem: Cellulitis of right upper limb including hand Active Problems: General weakness Hypokalemia Malaise Bacteriuria with pyuria / Low WBCs but 4 plus bacteria Resolved Problems: * No resolved hospital problems. * Patient Active Problem List Diagnosis Date Noted Bacteriuria with pyuria / Low WBCs but 4 plus bacteria 04/03/2020 General weakness 04/02/2020 Hypokalemia 04/02/2020 Malaise 04/02/2020 Cellulitis of right upper limb including hand 04/02/2020 PLAN: antibiotics Critical Care Time: zero Ricco Sánchez M.D. * Alicia Miller, RN - 04/04/2020 7:59 AM EDT Patient awake in the room. Continues to yell at who is not present. Attempted to orient patient. No success. Will monitor. * Fanny Resendiz RN - 04/03/2020 5:57 PM EDT Patient confused, thinking Isaias is in the room at this time and has been talking to him.Tried re-orienting the patient but she is not following. Patient is pleasant at this time. Will continue tomonitor * Iza Hein LSW - 04/03/2020 4:26 PM EDT Spoke with daughter Maranda Da Silva this p.m. re: Patient plans for discharge. Daughter states that she would like for her mother to return to [facility] following this hospitalization. Daughter is aware, per this auto service writer, that [facility] does have Covid positive resident in their facility at this time. Referral made to [facility] via telephone voicemail message left for Kae Orta re:above. [facility] will begin pre-cert and notify FUR STYLIST when Patient is able to return. SAAD Koroma 04/03/2020 * Iza Hein LSW - 04/03/2020 3:15 PM EDT Met with Patient to discuss discharge planning. Unable to complete assessment due to Patient confusion. Telephone voicemail message left for Patient's spouse and for her daughter. Spoke with Admission's membership sales representative at [facility] where Patient was residing at the time ofher hospitalization. She states that [facility] will take Patient back if she or her family chooseto send her back at this time with the knowledge that [facility] has Covid positive Patient in their facility at this time. FUR STYLIST will await a telephone call back from Patient's family to determine discharge planning goals. Iza Hein, SAAD 04/03/2020 * Gretchen Chapa, KERRICK KLEANER OPERATOR - 04/03/2020 3:09 PM EDT [facility] Inpatient/Observation/Outpatient Rehabilitation Date: 04/03/2020 Patient Name: Meenu Nolan [x] Inpatient Acute/Observation [] Outpatient : 1935 [] Pt no showed for scheduled appointment [] Pt refused/declined therapy at this time due to: [x] Pt cancelled due to: [] No Reason Given [] Sick/ill [x] Other: Physical therapy treatment was attempted at 2:40pm. Patient demonstrating increased agitation. Consulted with Fanny, treatment withheld. Gretchen Chapa PTA Date: 04/03/2020 * Astrid Alan, PT - 04/03/2020 9:30 AM EDT Physical Therapy Facility/Department: [facility] Initial Assessment NAME: Meenu Nolan : 1935 Date of Service: 04/03/2020 Discharge Recommendations: Continue to assess pending progress, Subacute/[facility] Facility, ECF with PT, Patient would benefit from continued therapy after discharge Assessment Body structures, Functions, Activity limitations: Decreased functional mobility ;Decreased high-level IADLs;Decreased ADL status;Decreased endurance;Decreased ROM;Decreased strength;Decreased balance;Decreased safe awareness Assessment: Pt is 84 y/o female admitted for cellulitis. Pt is pleasant and cooperative at time of eval, but does demonstrate cognitive deficits that limit pt's ability to follow commands throughout evaluation process. Pt requires MaxA for bed mobility and transfers this date. Pt attempts to stand EOB x3 with RW, and consistently leans posteriorly and resists therapist's attempt to assist pt withshifting weight appropriately. D/t decreased cognition and inability to stand safely EOB with appropriate weight shift, unable to progress ambulation at this time. Pt will benefit from skilled PT services to improve strength, balance, gait, and overall functional mobility. Treatment Diagnosis: generalized weakness Prognosis: Good Decision Making: Medium Complexity PT Education: PT Role;Plan of Care REQUIRES PT FOLLOW UP: Yes Activity Tolerance Activity Tolerance: Patient limited by cognitive status Patient Diagnosis(es): The primary encounter diagnosis was General weakness. Diagnoses of Hypokalemia, Malaise, and Cellulitis of right upper extremity were also pertinent to this visit. has a past medical history of Chronic kidney disease and Hypertension. has a past surgical history that includes Hysterectomy; joint replacement; and Cholecystectomy. Restrictions Restrictions/Precautions Restrictions/Precautions: General Precautions, Fall Risk(Per chart review, pt with recent L hip fx (January 2020)) Vision/Hearing Vision: Within Functional Limits Hearing: Within functional limits Subjective General Patient assessed for rehabilitation services?: Yes Subjective Subjective: Pt pleasant and cooperative upon arrival to pt's room. Pain Screening Patient Currently in Pain: Yes Orientation Orientation Overall Orientation Status: Impaired Orientation Level: Oriented to person;Oriented to time;Disoriented to place;Oriented to situation Social/Functional History Social/Functional History Lives With: Alone Type of Home: Facility([facility]) Home Layout: One level Home Equipment: Rolling walker ADL Assistance: Needs assistance Homemaking Assistance: Needs assistance IADL Comments: Limited hx provided by pt d/t impaired cognition. Pt resided at [facility] KERRICK KLEANER OPERATOR, butunable to determine what length of time. Per EMR, pt went to [facility] for rehab following L hip fx. Cognition Cognition Overall Cognitive Status: Exceptions Arousal/Alertness: Delayed responses to stimuli Following Commands: Inconsistently follows commands;Follows one step commands with repetition;Follows one step commands with increased time Attention Span: Difficulty attending to directions Safety Judgement: Decreased awareness of need for assistance;Decreased awareness of need for safety Insights: Not aware of deficits Initiation: Requires cues for all Sequencing: Requires cues for all Objective AROM RLE (degrees) RLE General AROM: BLE ROM grossly WFL; however, d/t decreased ability to follow commands, unable toformally assess AROM. AROM LLE (degrees) LLE General AROM: BLE ROM grossly WFL; however, d/t decreased ability to follow commands, unable toformally assess AROM. -- per EMR, pt had L hip fx in January 2020 with surgical fixation. Strength RLE Comment: Grossly limited ~3-/5 -- unable to formally assess with MMT d/t decreased ability to follow commands Strength LLE Comment: Grossly limited ~3-/5 -- unable to formally assess with MMT d/t decreased ability to follow commands Bed mobility Rolling to Left: Maximum assistance Rolling to Right: Maximum assistance Supine to Sit: Maximum assistance Sit to Supine: Maximum assistance Scooting: Maximal assistance Transfers Sit to Stand: Maximum Assistance Stand to sit: Maximum Assistance Ambulation Ambulation?: No(Pt unable to safely stand EOB; therefore unable to ambulate at this time. ) Stairs/Curb Stairs?: No Balance Posture: Fair Sitting - Static: Fair Sitting - Dynamic: Fair Standing - Static: Poor;- Standing - Dynamic: Poor;- Plan Plan Times per week: 7 days per week Times per day: Twice a day(Daily on weekends) Current Treatment Recommendations: Strengthening, ADL/Self-care Training, Gait Training, Patient/Caregiver Education & Training, ROM, IADL Training, Balance Training, Neuromuscular Re-education, Functional Mobility Training, Endurance Training, Home Exercise Program, Transfer Training, Manual Therapy - Soft Tissue Mobilization, Safety Education & Training Safety Devices Type of devices: All fall risk precautions in place, Bed alarm in place Goals Short term goals Time Frame for Short term goals: 10 days Short term goal 1: Pt will perform bed mobility with CGA to decrease level of caregiver assistance. Short term goal 2: Pt will perform transfers with Cyn to improve functional mobility. Short term goal 3: Pt will ambulate 50ft with RW and Cyn to improve functional ambulation. Short term goal 4: Pt will tolerate 20-30mins ther ex/act to improve endurance for ADLs and functional tasks. Therapy Time Individual Concurrent Group Co-treatment Time In 717 Time Out 0748 Minutes 30 Astrid Alan PT , DPT * Sofía Esparza RD, LD - 04/03/2020 8:17 AM EDT Nutrition Assessment Type and Reason for Visit: Initial(Nutrition screen) Nutrition Recommendations: 1. Continue diet as ordered; no added salt diet 2. Feeding assistance as needed 3. Suggest 4 oz Glucerna BID (chocolate) 4. Diet instruction not appropriate at this time. Follow up with caregivers. Nutrition Assessment: Predicted suboptimal energy intake related to cognitive or neurological impairment as pt reports feeling of low energy weakness, intake of 50-75%. Pt appears slightly confused, not able to get appropriate answers to questions at all times. Pt reports a good appetite, no chewing or swallowing issues, but says she feels low energy. Note per EHR, pt has some weakness in the right upper extremity, and food over front of gown. Pt may require some feeding assistance. Pt reports she is on a renal diet at home. She consumed oatmeal, and a few bites of toast, and orange juice. Labs reviewed and blood sugars acutely elevated, with downward trend. Creatinine elevated; trending toimproved levels. Pt is at moderate nutrition risk and insufficient evidence for malnutrition; likely at risk. Malnutrition Assessment: Malnutrition Status: Insufficient data Context: Chronic illness Findings of the 6 clinical characteristics of malnutrition (Minimum of 2 out of 6 clinical characteristics is required to make the diagnosis of moderate or severe Protein Calorie Malnutrition based on AND/ASPEN Guidelines): 1. Energy Intake-Less than or equal to 75% of estimated energy requirement, Unable to assess 2. Weight Loss-No significant weight loss, 3. Fat Loss-No significant subcutaneous fat loss, 4. Muscle Loss-Mild muscle mass loss, 5. Fluid Accumulation-Mild fluid accumulation, Extremities 6. Natural Gas Plant Supervisor Strength-Not measured Recent Labs 04/02/20 1445 04/02/20200404/03/20 0555 NA 137 139 140 K 2.9* 3.4* 3.5* CL 92* 96* 96* CO2 29 28 26 BUN 37* 35* 30* CREATININE 1.41* 1.33* 1.17* GLUCOSE 200* 149* 157* GFR Lab Results Component Value Date LABALBU 3.3 03/25/2020 LABALBU 4.4 02/19/2012 Nutrition Risk Level: Moderate Nutrient Needs: Estimated Daily Total Kcal: 6060-8731 Estimated Daily Protein (g): 55-65 Estimated Daily Total Fluid (ml/day): (1500+) Nutrition Diagnosis: Problem: Predicted suboptimal energy intake Etiology: related to Cognitive or neurological impairment, Renal dysfunction ? Signs and symptoms: as evidenced by Patient report of, Intake 50-75%(low energy, elevated creatinine) Objective Information: Nutrition-Focused Physical Findings: edema: BLE +1 pitting, rounded abdomen Wound Type: None Current Nutrition Therapies: Oral Diet Orders: General, No Added Salt (3-4gm) Oral Diet intake: 51-75% Oral Nutrition Supplement (ONS) Orders: ONS intake: 0% Anthropometric Measures: Ht: 5' (152.4 cm) Current Body Wt: 158 lb 15.2 oz (72.1 kg) Admission Body Wt: 158 lb 15.2 oz (72.1 kg) Usual Body Wt: 159 lb (72.1 kg) Harrington Body Wt: 100 lb (45.4 kg), % Harrington Body 158% BMI Classification: BMI 30.0 - 34.9 Obese Class I Nutrition Interventions: Continue current diet Continued Inpatient Monitoring, Education Completed Nutrition Evaluation: Evaluation: Goals set Goals: >75% PO Monitoring: Meal Intake, Supplement Intake, Weight, Pertinent Labs, Chewing/Swallowing, Patient/Family Education, Constipation Contact Number: [phone] * Sonali Avitia, [facility] - 04/03/2020 8:11 AM EDT Piperacillin-Tazobactam Extended Interval Interchange The following ordered dose of Piperacillin-Tazobactam has been changed to optimize its pharmacodynamic profile as approved by the Patient Care Review Committee. Ordered Dose _x_ 3.375 gm IV q6 or 8hrs (30 minute infusion) __ 4.5gm IV q6 or 8hrs (30 minute infusion) __ 2.25gm IV q6 or 8hrs (30 minute infusion) New Dose CrCl ? 20ml/min _x_ 3.375gm IV q8hrs (4-hour infusion) CrCl < 20ml/min __ 3.375gm IV q12hrs (4-hour infusion) Pharmacists should be contacted for issues concerning drug compatibility with multiple IV medications. All doses will be prepared using 50ml D5W to be infused over 4-hours at a rate of 12.5ml/hr. Thank You, Sonali Avitia04/03/20208:11 AM * Vernell Stephenson [facility] - 04/03/2020 7:29 AM EDT [facility] Department of Pharmacy Pharmacy Renal Adjustment Note Meenu Nolan is a 84 y.o. female. Pharmacist assessment of renally cleared medications. Recent Labs 04/02/20 1445 04/02/20200404/03/20 0555 CREATININE 1.41* 1.33* 1.17* Estimated Creatinine Clearance: 33 mL/min (A) (based on SCr of 1.17 mg/dL (H)). Height: Ht Readings from Last 1 Encounters: 04/03/20 5' (1.524 m) Weight: Wt Readings from Last 1 Encounters: 04/03/20 159 lb (72.1 kg) The following medication has been adjusted based upon renal function: Unasyn adjusted to every 8 hours for Crcl > 30 ml/min. Vernell Stephenson,04/03/2020,7:29 AM * Vernell Stephenson [facility] - 04/03/2020 7:26 AM EDT [facility] Department of Pharmacy Pharmacy Renal Adjustment Note Meenu Nolan is a 84 y.o. female. Pharmacist assessment of renally cleared medications. Recent Labs 04/02/20 14404/02/20200404/03/20 0555 CREATININE 1.41* 1.33* 1.17* Estimated Creatinine Clearance: 33 mL/min (A) (based on SCr of 1.17 mg/dL (H)). Height: Ht Readings from Last 1 Encounters: 04/03/20 5' (1.524 m) Weight: Wt Readings from Last 1 Encounters: 04/03/20 159 lb (72.1 kg) The following medication has been adjusted based upon renal function: Lovenox adjusted to 40 mg sq daily for Crcl > 30 ml/min. Vernell Stephenson,04/03/2020,7:26 AM * Vicki Garcia RN - 04/03/2020 5:58 AM EDT Bar Supervisor and 2 RNs came change's patient's bed linen, gown, and brief at this time. Corrine care was performed. Patient is suddenly a lot more pleasant, cooperative, and able to hold a conversation. Patient is now orientated to person, birthday and place. Patient states she does not know the month. Bar Supervisor re orientated patient to month. Bar Supervisor is going to attempt to regain IV access. Leads were also off and reapplied. * Vicki Garcia RN - 04/03/2020 5:40 AM EDT Csr alerted auto service writer that patient had removed her brief and pull out her IV at this time. * Vicki Garcia RN - 04/03/2020 2:45 AM EDT Patient refused being repositioned at this time. Don't touch me, patient stated. * Vicki Garcia RN - 04/03/2020 2:28 AM EDT Navigator completed to auto service writer's best ability. Multiple items of the navigator unable to complete due to patient's confusion and family members not knowing patient's care. * Vicki Garcia RN - 04/03/2020 1:12 AM EDT Patient is resting with eyes closed and bed alarm on at this time. Brief is dry. Patient is requesting to not be touched, not be bothered and to leave the room at this time. Bar Supervisor will continue to monitor. * Vicki Garcia RN - 04/03/2020 12:53 AM EDT Called Luz WESLEY from ER at this time to clarify if Gonzalo wanted normal saline at 150mL/hour continous or NS with K+ at 75mL/hour continuous as both orders were put in. Alondra verified Gonzalo wanted NS with K+ at 150mL/hr continuous and to discontinue regular normal saline continuous at this time. * Vicki Garcia RN - 04/03/2020 12:43 AM EDT Bar Supervisor attempted to give verpamil, xanax and tylenol crushed in pudding at this time. Patient refused, patient smacked auto service writer and swore at auto service writer and with auto service writer's final attempt after explaining it had pain medication in the pudding to help her feel better, patient smacked the spoon out of auto service writer'antonio and onto the floor, stating it smells like shit and I dont want no pills. Bar Supervisor was able to collection support specialist patient to IV fluids however patient was mad at auto service writer for doing so and swatted at auto service writer. * Vicki Garcia RN - 04/03/2020 12:28 AM EDT Patient stated get the hell out of here and that myself and Valerie RN are a pain in the ass and need to get out. Bar Supervisor is attempting to give medications at this time. * Vicki Garcia RN - 04/03/2020 12:10 AM EDT Heart monitor applied at this time by auto service writer. While applying heart monitor tabs patient was verbally agressive stating leave me alone, stop touching me and will you go downstairs and stay down there!? * Abhilash Jalloh [facility] - 04/03/2020 12:10 AM EDT Pharmacy Note Renal Dose Adjustment Meenu Nolan is a 84 y.o. female. Pharmacist assessment of renally cleared medications. Recent Labs 04/02/20 1445 04/02/202004 BUN 37* 35* Recent Labs 04/02/20 1445 04/02/202004 CREATININE 1.41* 1.33* CrCl cannot be calculated (Unknown ideal weight.). Estimated CrCl using Harrington Body Weight: 23.4 mL/min (based on IBW 45.5 kg) Height: Ht Readings from Last 1 Encounters: 03/23/20 5' (1.524 m) Weight: Wt Readings from Last 1 Encounters: 03/23/20 159 lb (72.1 kg) The following medication dose has been adjusted based upon renal function per P&T Guidelines: Unasyn 1.5 gm IV every 8 hours changed to 1.5 gm IV every 12 hours. Abhilash Jalloh [facility] 04/03/2020 12:10 AM * Vicki Garcia RN - 04/03/2020 12:03 AM EDT Patient is disorientated x4. Patient stated I do not have a name. Did not respond when asked whenpatient was born multiple times. Patient stated [facility] when replying to location and stated no what was the month. Patient unable to answer questions at this time due to disorientation. ER nurses states hasnot seen weeks and was unable to speak on her care. Patient is from [facility], auto service writer will review the paperwork sent over by [facility]. Patient is resting with eyes closed at this time, patient is confused and opens eyes occasional when spoken to. * Abhilash Jalloh [facility] - 04/03/2020 12:03 AM EDT Pharmacy Note Renal Dose Adjustment Meenu Nolan is a 84 y.o. female. Pharmacist assessment of renally cleared medications. Recent Labs 04/02/20 1445 04/02/202004 BUN 37* 35* Recent Labs 04/02/20 1445 04/02/202004 CREATININE 1.41* 1.33* CrCl cannot be calculated (Unknown ideal weight.). Estimated CrCl using Harrington Body Weight: 23.42 mL/min (based on IBW 45.5 kg) Height: Ht Readings from Last 1 Encounters: 03/23/20 5' (1.524 m) Weight: Wt Readings from Last 1 Encounters: 03/23/20 159 lb (72.1 kg) The following medication dose has been adjusted based upon renal function per P&T Guidelines: Enoxaparin 40 mg subcutaneously once daily changed to enoxaparin 30 mg subcutaneously once daily. Abhilash Jalloh [facility] 04/03/2020 12:03 AM * Vicki Garcia RN - 04/02/2020 11:20 PM EDT [facility] from ER via bed at this time. Patient was moved over to bed via flat sheet with 4 nurses. Patient unable to assist. documented in this encounter* Nirmala Lanier RN - 05/15/2020 3:50 PM EDT Report called to RN at [facility] in [place]. Facility will accept patient after 10pm when Jenniferan pick her up. * Natasha Escobedo MD - 05/15/2020 11:58 AM EDT Hospitalist Progress Note Patient: Meenu Nolan Unit/Bed:-19/019-A Date of : 1935 Acct: [id number] PCP: Justino Dhaliwal DO Date of Admission: 05/10/2020 Assessment/Plan: Anticipated Discharge in : Active Hospital Problems Diagnosis Date Noted Periprosthetic intertrochanteric fracture of femur [M97.8XXA, Z96.649] 05/10/2020 Essential hypertension Blood pressure is controlled Patient currently on verapamil 180 mg nightly, continue. Encourage DASH diet, cut down salt intake less than 2300 mg/day Urinary retention postsurgical Continue bladder scan every 6 hours and straight cath if residual more than 250 mL. If this continue 3 times then insert Hernandez. Acute blood loss anemia postoperatively Patient lost almost 2 g of blood post surgery, given 1 unit of blood Rpt hgb stable 8.3 CKD 3a Currently at baseline 1.12, repeat 1.1. Avoid nephrotoxic's, monitor closely, repeat BMP in a.m. 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 She otherwise has a past medical history of hypertension and chronic kidney disease. We have been consulted for assistance with medicationmanagement. At this time patient is postop a few hours and is denying any pain at this time. She denies any shortness of breath. She is rather sleepy still but arouses easily and answers questions appropriately. Blood pressures are currently controlled with the last several readings being in the 1 teens to 140s systolic. She denies any chest pain or shortness of breath Subjective: Patient seen and examined, appears comfortable in bed, without any signs of cardiorespiratory distress. VS stable, afebrile, saturating well on room air. Patient denies chest pain, palpitations, or shortness of breath. Medications: Reviewed Infusion Medications Scheduled Medications enoxaparin 40 mg Subcutaneous Daily docusate sodium 100 mg Oral Daily polyethylene glycol 17 g Oral Daily busPIRone 5 mg Oral BID melatonin ER 5 mg Oral Nightly pravastatin 10 mg Oral Daily verapamil 180 mg Oral Nightly PRN Meds: cyclobenzaprine, ondansetron, morphine OR morphine, HYDROcodone 5 mg - acetaminophen OR HYDROcodone 5 mg - acetaminophen, magnesium hydroxide, acetaminophen, ALPRAZolam Intake/Output Summary (Last 24 hours) at 05/15/2020 1158 Last data filed at 05/15/2020 0405 Gross per 24 hour Intake 1125.55 ml Output 500 ml Net 625.55 ml Diet: DIET GENERAL; Exam: BP (!) 118/58 Pulse 68 Temp 98.2 F (36.8 C) (Oral) Resp 16 Ht 5' 3 (1.6 m) Wt 153 lb 9.6oz (69.7 kg) SpO2 95% BMI 27.21 kg/m General appearance: No apparent distress, appears stated age and cooperative. HEENT: Pupils equal, round, and reactive to light. Conjunctivae/corneas clear. Neck: Supple, with full range of motion. No jugular venous distention. Trachea midline. Respiratory: Normal respiratory effort. Clear to auscultation, bilaterally without Rales/Wheezes/Rhonchi. Cardiovascular: Regular rate and rhythm with normal S1/S2, heart murmur noted, rubs or gallops. Abdomen: Soft, non-tender, non-distended with normal bowel sounds. Musculoskeletal: mild tenderness on left, incision clean and dry, intact Skin: Skin color, texture, turgor normal. No rashes or lesions. Neurologic: Neurovascularly intact without any focal sensory/motor deficits. Cranial nerves: II-XIIintact, grossly non-focal. Psychiatric: Alert and oriented, thought content appropriate, normal insight Capillary Refill: Brisk,< 3 seconds Peripheral Pulses: +2 palpable, equal bilaterally Labs: Recent Labs 05/13/20 1107 05/14/20 0706 05/14/20 1548 WBC 11.5* 10.2 -- HGB 7.6* 7.0* 8.2* HCT 25.0* 23.1* 27.1* PLT 396 385 -- Recent Labs 05/13/20 1106 05/14/20 0706 NA 135 138 K 4.0 4.0 CL 102 105 CO2 23 24 BUN 18 18 CREATININE 1.0 1.1 CALCIUM 7.8* 7.6* No results for input(s): AST, ALT, BILIDIR, BILITOT, ALKPHOS in the last 72 hours. No results for input(s): INR in the last 72 hours. No results for input(s): CKTOTAL, TROPONINI in the last 72 hours. Urinalysis: Lab Results Component Value Date NITRU NEGATIVE 05/08/2020 WBCUA 50 TO 100 05/08/2020 BACTERIA 2+ 05/08/2020 RBCUA 5 TO 10 05/08/2020 SPECGRAV 1.020 05/08/2020 GLUCOSEU NEGATIVE 05/08/2020 Radiology: XR FOOT LEFT (MIN 3 VIEWS) Final Result 1. Osteoporosis. Multifocal degenerative changes. 2. Soft tissue swelling of the foot. Questionable small erosion first metatarsal head versus cortical cyst.. Cannot exclude gout. This report has been created using voice recognition software. It may contain minor errors which are inherent in voice recognition technology. Final report electronically signed by Dr. Rodrick Baker on 05/14/2020 8:45 AM XR HIP LEFT (2-3 VIEWS) Final Result Status post left total hip arthroplasty. This report has been created using voice recognition software. It may contain minor errors which are inherent in voice recognition technology. Final report electronically signed by Dr Benson Edwards on 05/10/2020 3:30 PM Diet: DIET GENERAL; DVT prophylaxis: [] Lovenox [] SCDs [] SQ Heparin [] Encourage ambulation [] Already on Anticoagulation Disposition: [] Home [] TCU [] Rehab [] Psych [] SNF [] Detention Care Facility [] Other- Code Status: Full Code PT/OT Eval Status: * Katarina Pike, NEON ELECTRICIAN - VEHICLE REFINISHER - 05/15/2020 11:39 AM EDT Orthopaedic Progress Note SUBJECTIVE: No chief complaint on file. POD 5 left hip hardware removal, conversion to THR Seen in bed. hgb 8.2 after 1 unit PRBC Physical Vitals: 05/15/20 0852 BP: (!) 118/58 Pulse: 68 Resp: 16 Temp: 98.2 F (36.8 C) SpO2: 95% OBJECTIVE LLE dressing c/d/i. Flex and weak extension toes and ankle. ROM improving hip. Compartments soft. SILT Data CBC: Lab Results Component Value Date WBC 10.2 05/14/2020 RBC 2.38 05/14/2020 RBC 4.51 11/11/2011 HGB 8.2 05/14/2020 HCT 27.1 05/14/2020 MCV 97.1 05/14/2020 MCH 29.4 05/14/2020 MCHC 30.3 05/14/2020 RDW 15.5 05/09/2020 PLT 385 05/14/2020 PLT 207 11/11/2011 MPV 9.5 05/14/2020 BMP: Lab Results Component Value Date NA 138 05/14/2020 K 4.0 05/14/2020 CL 105 05/14/2020 CO2 24 05/14/2020 BUN 18 05/14/2020 LABALBU 2.4 04/10/2020 LABALBU 4.4 02/19/2012 CREATININE 1.1 05/14/2020 CALCIUM 7.6 05/14/2020 GFRAA 56 05/09/2020 LABGLOM 47 05/14/2020 GLUCOSE 104 05/14/2020 GLUCOSE 100 02/19/2012 Uric Acid: No components found for: URIC PT/INR: Lab Results Component Value Date PROTIME 14.9 03/23/2020 INR 1.2 03/23/2020 PTT: Lab Results Component Value Date APTT 33.4 03/23/2020 [APTT Troponin: No results found for: TROPONINI Urine Culture: No components found for: CURINE Current Inpatient Medications Current Facility-Administered Medications: cyclobenzaprine (FLEXERIL) tablet 10 mg, 10 mg, Oral, TID PRN ondansetron (ZOFRAN) injection 4 mg, 4 mg, Intravenous, Q6H PRN enoxaparin (LOVENOX) injection 40 mg, 40 mg, Subcutaneous, Daily morphine (PF) injection 2 mg, 2 mg, Intravenous, Q2H PRN OR morphine injection 4 mg, 4 mg, Intravenous, Q2H PRN HYDROcodone-acetaminophen (NORCO) 5-325 MG per tablet 1 tablet, 1 tablet, Oral, Q4H PRN OR HYDROcodone-acetaminophen (NORCO) 5-325 MG per tablet 2 tablet, 2 tablet, Oral, Q4H PRN docusate sodium (COLACE) capsule 100 mg, 100 mg, Oral, Daily magnesium hydroxide (MILK OF MAGNESIA) 400 MG/5ML suspension 30 mL, 30 mL, Oral, Daily PRN acetaminophen (TYLENOL) tablet 650 mg, 650 mg, Oral, Q4H PRN polyethylene glycol (GLYCOLAX) packet 17 g, 17 g, Oral, Daily ALPRAZolam (XANAX) tablet 0.25 mg, 0.25 mg, Oral, Nightly PRN busPIRone (BUSPAR) tablet 5 mg, 5 mg, Oral, BID melatonin ER tablet 5 mg, 5 mg, Oral, Nightly pravastatin (PRAVACHOL) tablet 10 mg, 10 mg, Oral, Daily verapamil (CALAN SR) extended release tablet 180 mg, 180 mg, Oral, Nightly . ASSESSMENT AND PLAN Continue medical management WBAT LLE Dry dressings prn PT/OT dvt ppx * Bettie Chavez KERRICK KLEANER OPERATOR - 05/14/2020 12:06 PM EDT [facility] INPATIENT PHYSICAL THERAPY DAILY NOTE [facility] 7K - 7K-19/019-A Time In: 1125 Time Out: 1149 Minutes: 24 Date: 05/14/2020 Patient Name: Meenu Nolan, Gender: female : 1935 (84 y.o.) Referring Practitioner: Sylvia Monte CNP Diagnosis: Periprosthetic hip fracture Additional Pertinent Hx: Patient is an 84-year-old female with history of intertrochanteric femur fracture with complications from original surgery who is undergoing left total hip replacement today.She otherwise has a past medical history of hypertension and chronic kidney disease. We have been consulted for assistance with medication management. At this time patient is postop a few hours and is denying any pain at this time. She denies any shortness of breath. She is rather sleepy still but arouses easily and answers questions appropriately. Blood pressures are currently controlled with the last several readings being in the 1 teens to 140s systolic. She denies any chest pain or shortness of breath. Pt is s/p L HAYDEE 05/[address] Lagos. Prior Level of Function: Lives With: Alone Type of Home: Facility([facility] x6-7 months) ADL Assistance: Needs assistance(recently requiring assist with all at [facility]) Homemaking Assistance: (dependent on staff) Ambulation Assistance: Needs assistance Transfer Assistance: Needs assistance Additional Comments: Pt reports being a long time since she has walked, reports living at [facility] x6-7 months, was starting to work on standing however insurance cut coverage and therapies recently ceased. Pt unable to state last time she walked/stood however belives around September she was still living at home with her . No family present. Restrictions/Precautions: Restrictions/Precautions: General Precautions, Fall Risk, Weight Bearing, Surgical Protocols Left Lower Extremity Weight Bearing: Weight Bearing As Tolerated Position Activity Restriction Hip Precautions: No hip flexion > 90 degrees, No ABduction, No hip internal rotation SUBJECTIVE: RN approved session, and present giving blood at this time. Pt needing encouragement toparticipate in session. PAIN: 03/06: OBJECTIVE: Bed Mobility: Rolling to Left: Minimal Assistance, with head of bed raised, with increased time for completion Supine to Sit: Moderate Assistance, X 2, with head of bed raised, with verbal cues Scooting: Contact Guard Assistance, max x2 to move back in bedside chair Transfers: Sit to Stand: Moderate Assistance, X 2, with verbal cues, into ROMARIO steady from elevated bed, pt struggles to correct posture and bring hips fwd to place flaps Stand to Sit:Moderate Assistance, X 2, with increased time for completion, cues for hand placement,with verbal cues bed to chair: Dependent, use of ROMARIO steady, pt needing cues to place L foot flat, and correct posture Balance: Static Sitting Balance: Contact Guard Assistance, X 1 Static Standing Balance: Contact Guard Assistance, X 2 Exercise: Patient was guided in seated set(s) 10 reps of exercise to both lower extremities. Glut sets, Hip abduction/adduction, Seated marches, Seated heel/toe raises and Long arc quads. Exercises were completed for increased independence with functional mobility. Functional Outcome Measures: Completed AM-[facility] Inpatient Mobility Raw Score : 8 AM-[facility] Inpatient T-Scale Score : 28.52 ASSESSMENT: Assessment: Patient progressing toward established goals. Activity Tolerance: Patient tolerance of treatment: fair. Pt pleasantly confused during session. Equipment Recommendations:Equipment Needed: No Discharge Recommendations: Subacute/[facility] Facility Plan: Times per week: 4-5x O Current Treatment Recommendations: Strengthening, Home Exercise Program, Balance Training, Functional Mobility Training, Transfer Training, Wheelchair Mobility Training, Patient/Caregiver Education & Training, Safety Education & Training Patient Education Patient Education: Plan of Care, Bed Mobility, Transfers Goals: Patient goals : to return to SNF Short term goals Time Frame for Short term goals: by discharge Short term goal 1: Pt to transfer supine <--> sit max A x 1 to enable pt to get in/out of bed. Short term goal 2: Pt to transfer sit <--> stand mod A x 2 for increased functional mobility. long term care administrator goals Time Frame for long term care administrator goals : NA due to short length of stay. Following session, patient left in safe position with all fall risk precautions in place. * Chele Lagos MD - 05/14/2020 9:42 AM EDT Physician Progress Note PATIENT: MEENU NOLAN CSN #: [id number] : 1935 ADMIT DATE: 05/10/2020 9:36 AM DISCH DATE: RESPONDING PROVIDER #: CHELE LAGOS MD QUERY TEXT: Pt admitted with failed left hip fracture fixation s/p surgery. Pt noted to have H/H 10.2/34.3 down to 7.4/24.8. If possible, please document in the progress notes and discharge summary if you are evaluating and/or treating any of the following: The medical record reflects the following: Risk Factors: s/p surgery Clinical Indicators: H/H day of admit 10.2/34.3, 8.9/30.3, 7.4/24.8, 7.6/25.0, EBL 200 Treatment: IVF and H/H monitoring Thank you! Howard Darling, STEVON,RN, CRCR RN Clinical Tank Hoop Bender P: [phone] Options provided: -- Acute blood loss anemia -- Postoperative acute blood loss anemia -- Dilutional anemia -- Other - I will add my own diagnosis -- Disagree - Not applicable / Not valid -- Disagree - Clinically unable to determine / Unknown -- Refer to Clinical Documentation Reviewer PROVIDER RESPONSE TEXT: This patient has postoperative acute blood loss anemia. Query created by: Howard Darling on 05/13/2020 12:33 PM Electronically signed by: CHELE LAGOS MD 05/14/2020 9:41 AM * Katarina Pike APRN - VEHICLE REFINISHER - 05/14/2020 8:35 AM EDT Orthopaedic Progress Note SUBJECTIVE: POD 4 left hip hardware removal, conversion to THR Seen in bed, somewhat confused. Pain controlled with pain medications. hgb 7 Ecchymosis left great toe, swelling, foot drop Physical Vitals: 05/14/20 0751 BP: (!) 141/62 Pulse: 81 Resp: 16 Temp: 98.9 F (37.2 C) SpO2: 93% OBJECTIVE LLE dressing c/d/i. No signs of bleeding. Minimal swelling of the hip. Weak dorsiflexion,great toe ecchymosis, resting in plantar flexion. DP/PT pulses 2+ calf soft. Data CBC: Lab Results Component Value Date WBC 10.2 05/14/2020 RBC 2.38 05/14/2020 RBC 4.51 11/11/2011 HGB 7.0 05/14/2020 HCT 23.1 05/14/2020 MCV 97.1 05/14/2020 MCH 29.4 05/14/2020 MCHC 30.3 05/14/2020 RDW 15.5 05/09/2020 PLT 385 05/14/2020 PLT 207 11/11/2011 MPV 9.5 05/13/2020 BMP: Lab Results Component Value Date NA 138 05/14/2020 K 4.0 05/14/2020 CL 105 05/14/2020 CO2 24 05/14/2020 BUN 18 05/14/2020 LABALBU 2.4 04/10/2020 LABALBU 4.4 02/19/2012 CREATININE 1.1 05/14/2020 CALCIUM 7.6 05/14/2020 GFRAA 56 05/09/2020 LABGLOM 47 05/14/2020 GLUCOSE 104 05/14/2020 GLUCOSE 100 02/19/2012 Uric Acid: No components found for: URIC PT/INR: Lab Results Component Value Date PROTIME 14.9 03/23/2020 INR 1.2 03/23/2020 PTT: Lab Results Component Value Date APTT 33.4 03/23/2020 [APTT Troponin: No results found for: TROPONINI Urine Culture: No components found for: CURINE Current Inpatient Medications Current Facility-Administered Medications: 0.9 % sodium chloride bolus, 20 mL, Intravenous, Once cyclobenzaprine (FLEXERIL) tablet 10 mg, 10 mg, Oral, TID PRN ondansetron (ZOFRAN) injection 4 mg, 4 mg, Intravenous, Q6H PRN enoxaparin (LOVENOX) injection 40 mg, 40 mg, Subcutaneous, Daily morphine (PF) injection 2 mg, 2 mg, Intravenous, Q2H PRN OR morphine injection 4 mg, 4 mg, Intravenous, Q2H PRN HYDROcodone-acetaminophen (NORCO) 5-325 MG per tablet 1 tablet, 1 tablet, Oral, Q4H PRN OR HYDROcodone-acetaminophen (NORCO) 5-325 MG per tablet 2 tablet, 2 tablet, Oral, Q4H PRN docusate sodium (COLACE) capsule 100 mg, 100 mg, Oral, Daily magnesium hydroxide (MILK OF MAGNESIA) 400 MG/5ML suspension 30 mL, 30 mL, Oral, Daily PRN acetaminophen (TYLENOL) tablet 650 mg, 650 mg, Oral, Q4H PRN polyethylene glycol (GLYCOLAX) packet 17 g, 17 g, Oral, Daily ALPRAZolam (XANAX) tablet 0.25 mg, 0.25 mg, Oral, Nightly PRN busPIRone (BUSPAR) tablet 5 mg, 5 mg, Oral, BID melatonin ER tablet 5 mg, 5 mg, Oral, Nightly pravastatin (PRAVACHOL) tablet 10 mg, 10 mg, Oral, Daily verapamil (CALAN SR) extended release tablet 180 mg, 180 mg, Oral, Nightly . ASSESSMENT AND PLAN -left foot x-ray. AFO for foot drop, not sure if this is chronic -continue medical management, medicine order 1 unit prbc. -WBAT LLE -dvt ppx -PT/OT * Saleem Gomes MD - 05/14/2020 7:54 AM EDT Hospitalist Progress Note Patient: Meenu Nolan Unit/Bed:-19/019-A Date of : 1935 Acct: [id number] PCP: Justino Dhaliwal DO Date of Admission: 05/10/2020 Assessment and Plan: 1. Essential hypertension: Blood pressure in the past 24 hours ranges between 114/55-141/64, likelyrelated to recent pain. Patient currently on verapamil 180 mg nightly. Encourage DASH diet, cut down salt intake less than 2300 mg/day, may discontinue IV fluid to improve blood pressure levels when patient tolerating orally. 05/12/2020: Blood pressure controlled in the past 24 hours ranges between 127/58- 130/62. Continue same management. 05/13/2020: Blood pressure controlled in the past 24 hours ranges between 119/60- 126/56. Continue same antihypertensive medication. 2. Urinary retention postsurgical: Continue bladder scan every 6 hours and straight cath if residual more than 250 mL. If this continue 3 times then insert Hernandez. 3. Acute blood loss anemia postoperatively: Patient lost almost 2 g of blood post surgery, will transfuse 1 unit of blood and monitor closely. 4. CKD 3 a: Currently at baseline 1.12, repeat 1.1. Avoid nephrotoxic's, monitor closely, repeat BMP in a.m. 5. 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 05/12/2020: Hemoglobin 7.4, transfuse if less than 7, monitor closely. 05/13/2020: No repeat hemoglobin level today, we will order CBC, transfuse if less than 7. 05/14/2020: Patient lost almost 2 g of blood postsurgically. We will transfuse 1 unit of blood as the patient symptomatic currently. Continue check H&H, monitor closely, repeat CBC in a.m. 6. 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 PMH, PSH, SH, FHX reviewed in chart review snap shot in [facility]: Consult for medical management HPI: Initial admission HPI by advanced manufacturing consultant physician reviewed as below: 84-year-old female with history of intertrochanteric femur fracture with complications from original surgery who is undergoing left total hip replacement today. She otherwise has a past medical history of hypertension and chronic kidney disease. We have been consulted for assistance with medicationmanagement. At this time patient is postop a few hours and is denying any pain at this time. She denies any shortness of breath. She is rather sleepy still but arouses easily and answers questions appropriately. Blood pressures are currently controlled with the last several readings being in the 1 teens to 140s systolic. She denies any chest pain or shortness of breath For further details and updates please refer to assessment and plan at the beginning of the note. ROS (10 point review of systems completed. Pertinent positives noted. Otherwise ROS is negative) : Left hip pain PMH: Per HPI and reviewed in the chart SHX: Reviewed in the chart, also the patient FHX: Reviewed in the chart, also with the patient Allergies: Reviewed in the chart Medications: enoxaparin 40 mg Subcutaneous Daily docusate sodium 100 mg Oral Daily polyethylene glycol 17 g Oral Daily busPIRone 5 mg Oral BID melatonin ER 5 mg Oral Nightly pravastatin 10 mg Oral Daily verapamil 180 mg Oral Nightly Subjective 05/11/2020: Patient has left hip pain, vitals controlled, slightly elevation creatinine yesterday but today normal. Had left total arthroplasty as of 05/10/2020. Nursing notes, labs, vitals reviewed. 05/12/2020: Had urinary retention, straight cath last night, will continue monitor closely. 05/13/2020: Improving, no repeat CBC today, we ordered 1, transfuse if hemoglobin level less than 7.We will follow. 05/14/2020: We will transfuse 1 unit of blood. Discharge plan per primary team. Vital Signs: Vitals reviewed and compared with the previous ones BP (!) 141/62 Pulse 81 Temp 98.9 F (37.2 C) (Oral) Resp 16 Ht 5' 3 (1.6 m) Wt 153 lb 9.6oz (69.7 kg) SpO2 93% BMI 27.21 kg/m Intake/Output Summary (Last 24 hours) at 05/14/2020 0754 Last data filed at 05/14/2020 0404 Gross per 24 hour Intake 905 ml Output 1400 ml Net -495 ml General: Age-appropriate, in no acute distress HEENT: normocephalic and atraumatic. No scleral icterus. PERRLA. Neck: supple. No thyromegaly. Lungs: clear to auscultation. No abnormal breathing sounds appreciated. Cardiac: S1, S2, RRR without murmur. No JVD. Abdomen: soft. Nontender. Bowel sounds positive. Extremities: Left hip tenderness, covered, no signs of infection at the surgical site. No clubbing,cyanosis, or edema in all extremities. Vasculature: capillary refill < 3 seconds. Pedal pulses intact bilaterally. Skin: warm and dry. Not clammy. Psych: Alert to time, person and place. Communicable. Affect appropriate Lymph: No supraclavicular ,and no anterior cervical lymphadenopathy. Neurologic: No focal deficit. CN II-XII grossly intact. Labs: Recent Labs 05/12/20 0647 05/13/20 1107 05/14/20 0706 WBC 9.6 11.5* 10.2 HGB 7.4* 7.6* 7.0* HCT 24.8* 25.0* 23.1* PLT 370 396 385 Recent Labs 05/12/20 0647 05/13/20 1106 05/14/20 0706 NA 137 135 138 K 3.9 4.0 4.0 CL 105 102 105 CO2 24 23 24 BUN 20 18 18 CREATININE 1.1 1.0 1.1 CALCIUM 7.7* 7.8* 7.6* No results for input(s): AST, ALT, BILIDIR, BILITOT, ALKPHOS in the last 72 hours. No results for input(s): INR in the last 72 hours. No results for input(s): CKTOTAL, TROPONINI in the last 72 hours. Microbiology: Blood culture #1: No results found for: BC Blood culture #2:No results found for: BLOODCULT2 Organism:No results found for: ORG Lab Results Component Value Date LABGRAM 05/10/2020 Few segmented neutrophils observed. No epithelial cells observed. No organisms observed. MRSA culture only:No results found for: MRSAC Urine culture: No results found for: LABURIN Respiratory culture: No results found for: CULTRESP Aerobic and Anaerobic : Lab Results Component Value Date LABAERO No growth-preliminary No growth 05/10/2020 Lab Results Component Value Date LABANAE No growth-preliminary 05/10/2020 Urinalysis: Lab Results Component Value Date NITRU NEGATIVE 05/08/2020 WBCUA 50 TO 100 05/08/2020 BACTERIA 2+ 05/08/2020 RBCUA 5 TO 10 05/08/2020 SPECGRAV 1.020 05/08/2020 GLUCOSEU NEGATIVE 05/08/2020 Radiology: XR HIP LEFT (2-3 VIEWS) Final Result Status post left total hip arthroplasty. This report has been created using voice recognition software. It may contain minor errors which are inherent in voice recognition technology. Final report electronically signed by Dr Benson Edwards on 05/10/2020 3:30 PM XR FOOT LEFT (MIN 3 VIEWS) (Results Pending) Xr Hip Left (2-3 Views) Result Date: 05/10/2020 PROCEDURE: XR HIP LEFT (2-3 VIEWS) CLINICAL INFORMATION: 84-year-old female who underwent left total hip arthroplasty. COMPARISON: No prior study. TECHNIQUE: 3 views of the left hip were obtained. FINDINGS: There is a left total hip arthroplasty. The acetabular and femoral components appear appropriately aligned. Some air is seen within the soft tissues. There is some high density material adjacent to the proximal aspect of the femoral portion of the arthroplasty likely related to surgery. Status post left total hip arthroplasty. This report has been created using voice recognition software. It may contain minor errors which are inherent in voice recognition technology. Final report electronically signed by Dr Benson Edwards on 05/10/2020 3:30 PM Discussed plan with patient and nurse. Patient and nurse verbalized understanding and agree. All questions addressed with concerns. Please excuse my TYPOS! * Katarina Pike, NEON ELECTRICIAN - VEHICLE REFINISHER - 05/13/2020 11:30 AM EDT Orthopaedic Progress Note SUBJECTIVE: POD 3 left hip hardware removal conversion to THR Seen up in chair. Pain well controlled. Cultures negative thus far Nurse not slow to progress with PT Physical Vitals: 05/13/20 1117 BP: (!) 125/58 Pulse: 69 Resp: 16 Temp: 98.7 F (37.1 C) SpO2: 95% OBJECTIVE LLE prineo intact. No active drainage currently. Weak foot dorsiflexion, ecchymosis rightgreat toe. Compartments soft. SILT Data CBC: Lab Results Component Value Date WBC 11.5 05/13/2020 RBC 2.53 05/13/2020 RBC 4.51 11/11/2011 HGB 7.6 05/13/2020 HCT 25.0 05/13/2020 MCV 98.8 05/13/2020 MCH 30.0 05/13/2020 MCHC 30.4 05/13/2020 RDW 15.5 05/09/2020 PLT 396 05/13/2020 PLT 207 11/11/2011 MPV 9.5 05/13/2020 BMP: Lab Results Component Value Date NA 137 05/12/2020 K 3.9 05/12/2020 CL 105 05/12/2020 CO2 24 05/12/2020 BUN 20 05/12/2020 LABALBU 2.4 04/10/2020 LABALBU 4.4 02/19/2012 CREATININE 1.1 05/12/2020 CALCIUM 7.7 05/12/2020 GFRAA 56 05/09/2020 LABGLOM 47 05/12/2020 GLUCOSE 123 05/12/2020 GLUCOSE 100 02/19/2012 Uric Acid: No components found for: URIC PT/INR: Lab Results Component Value Date PROTIME 14.9 03/23/2020 INR 1.2 03/23/2020 PTT: Lab Results Component Value Date APTT 33.4 03/23/2020 [APTT Troponin: No results found for: TROPONINI Urine Culture: No components found for: CURINE Current Inpatient Medications Current Facility-Administered Medications: cyclobenzaprine (FLEXERIL) tablet 10 mg, 10 mg, Oral, TID PRN ondansetron (ZOFRAN) injection 4 mg, 4 mg, Intravenous, Q6H PRN enoxaparin (LOVENOX) injection 40 mg, 40 mg, Subcutaneous, Daily morphine (PF) injection 2 mg, 2 mg, Intravenous, Q2H PRN OR morphine injection 4 mg, 4 mg, Intravenous, Q2H PRN HYDROcodone-acetaminophen (NORCO) 5-325 MG per tablet 1 tablet, 1 tablet, Oral, Q4H PRN OR HYDROcodone-acetaminophen (NORCO) 5-325 MG per tablet 2 tablet, 2 tablet, Oral, Q4H PRN docusate sodium (COLACE) capsule 100 mg, 100 mg, Oral, Daily magnesium hydroxide (MILK OF MAGNESIA) 400 MG/5ML suspension 30 mL, 30 mL, Oral, Daily PRN acetaminophen (TYLENOL) tablet 650 mg, 650 mg, Oral, Q4H PRN polyethylene glycol (GLYCOLAX) packet 17 g, 17 g, Oral, Daily ALPRAZolam (XANAX) tablet 0.25 mg, 0.25 mg, Oral, Nightly PRN busPIRone (BUSPAR) tablet 5 mg, 5 mg, Oral, BID melatonin ER tablet 5 mg, 5 mg, Oral, Nightly pravastatin (PRAVACHOL) tablet 10 mg, 10 mg, Oral, Daily verapamil (CALAN SR) extended release tablet 180 mg, 180 mg, Oral, Nightly . ASSESSMENT AND PLAN Continue medical management WBAT LLE Dry dressings prn DVT ppx ECF precert pending. * Darleen Singletary RN - 05/13/2020 9:40 AM EDT Present to pt room for necrotic areas to heels. Pt sitting in chair resting. Pt bilateral heels andleft posterior leg noted to have stable eschars POA probable from pressure. Unsure of pt vascular status to BLE, may benefit from CARRIE's if wound areas do not heal. Wound photos and assessment below. Painted areas with betadine, left open to air. No active drainage or open areas noted. Recommend staff to continue to paint with betadine daily, monitor and apply bilateral offloading boots to pt to wear in chair and bed. Pt resting in chair, call light in reach. Call wound ostomy as needed. Wound type: right heel unstageable pressure injury POA Wound size: 0.8cm x 0.6cm Undermining or Tunneling: none Wound assessment: 100% black stable eschar Wound color: black Drainage amount: none Drainage description: n/a Odor: none Margins: attached Corrine wound: dry, intact Exposed structure: none Wound type: Left heel and posterior lower leg unstageable pressure injuries POA Wound size: Left heel 2cm x 3.3cm Left posterior lower leg 3cm x 1cm Undermining or Tunneling: none Wound assessment: 100% black Wound color: black Drainage amount: none Drainage description: n/a Odor: none Margins: attached Corrine wound: dry Exposed structure: none Thank you for allowing us to participate in the care of your patient. TIME Wound/ostomy individual minutes Time In: 0940 Time Out: 0950 Minutes: 10 Time does not include documentation. * Bettie Chavez PTA - 05/13/2020 9:29 AM EDT [facility] INPATIENT PHYSICAL THERAPY DAILY NOTE [facility] 7K - 7K-19/019-A Time In: 08 Time Out: 09 Timed Code Treatment Minutes: 23 Minutes Minutes: 23 Date: 05/13/2020 Patient Name: Meenu Nolan, Gender: female : 1935 (84 y.o.) Referring Practitioner: Sylvia Monte CNP Diagnosis: Periprosthetic hip fracture Additional Pertinent Hx: Patient is an 84-year-old female with history of intertrochanteric femur fracture with complications from original surgery who is undergoing left total hip replacement today.She otherwise has a past medical history of hypertension and chronic kidney disease. We have been consulted for assistance with medication management. At this time patient is postop a few hours and is denying any pain at this time. She denies any shortness of breath. She is rather sleepy still but arouses easily and answers questions appropriately. Blood pressures are currently controlled with the last several readings being in the 1 teens to 140s systolic. She denies any chest pain or shortness of breath. Pt is s/p L HAYDEE 05/[address] Lagos. Prior Level of Function: Lives With: Alone Type of Home: Facility([facility] x[facility]) ADL Assistance: Needs assistance(recently requiring assist with all at [facility]) Homemaking Assistance: (dependent on staff) Ambulation Assistance: Needs assistance Transfer Assistance: Needs assistance Additional Comments: Pt reports being a long time since she has walked, reports living at [facility] x6-7 months, was starting to work on standing however insurance cut coverage and therapies recently ceased. Pt unable to state last time she walked/stood however belives around September she was still living at home with her . No family present. Restrictions/Precautions: Restrictions/Precautions: General Precautions, Fall Risk, Weight Bearing, Surgical Protocols Left Lower Extremity Weight Bearing: Weight Bearing As Tolerated Position Activity Restriction Hip Precautions: No hip flexion > 90 degrees, No ABduction, No hip internal rotation SUBJECTIVE: RN approved session. Pt resting in bed at arrival, pleasantly confused. Agreeable to upto chair. PAIN: 4-5/10: in back OBJECTIVE: Bed Mobility: Rolling to Left: Minimal Assistance Supine to Sit: Moderate Assistance, with head of bed raised, with verbal cues , with increased timefor completion Scooting: Moderate Assistance, X 2 Transfers: Sit to Stand: Minimal Assistance, X 1, with increased time for completion, cues for hand placement,with verbal cues, bed elevated to assist Stand to Sit:Minimal Assistance, X 2, with increased time for completion, cues for hand placement, with verbal cues Bed to Chair: Dependent, use of ROMARIO steady, cues for posture while in Balance: Static Sitting Balance: Stand By Assistance Dynamic Sitting Balance: Contact Guard Assistance, sitting EOB ~8mins in totally to complete therex Static Standing Balance: Contact Guard Assistance, X 2, for pericare~2-3mins, cues for posture Exercise: Patient was guided in seated set(s) 10 reps of exercise to both lower extremities. Glut sets, Hip abduction/adduction, Seated marches, Seated heel/toe raises and Long arc quads. Exercises were completed for increased independence with functional mobility. Functional Outcome Measures: Completed AM-[facility] Inpatient Mobility without Stair Climbing Raw Score : 8 AM-[facility] Inpatient without Stair Climbing T-Scale Score : 30.65 ASSESSMENT: Assessment: Patient progressing toward established goals. Activity Tolerance: Patient tolerance of treatment: good. Pt able to get up with less assist this date. Equipment Recommendations:Equipment Needed: No Discharge Recommendations: Subacute/[facility] Facility Plan: Times per week: 4-5x O Current Treatment Recommendations: Strengthening, Home Exercise Program, Balance Training, Functional Mobility Training, Transfer Training, Wheelchair Mobility Training, Patient/Caregiver Education & Training, Safety Education & Training Patient Education Patient Education: Plan of Care, Bed Mobility, Transfers Goals: Patient goals : to return to SNF Short term goals Time Frame for Short term goals: by discharge Short term goal 1: Pt to transfer supine <--> sit max A x 1 to enable pt to get in/out of bed. Short term goal 2: Pt to transfer sit <--> stand mod A x 2 for increased functional mobility. long term care administrator goals Time Frame for long term care administrator goals : NA due to short length of stay. Following session, patient left in safe position with all fall risk precautions in place. * Saleem Gomes MD - 05/13/2020 8:25 AM EDT Hospitalist Progress Note Patient: Meenu Nolan Unit/Bed:7K-19/019-A Date of : 1935 Acct: [id number] PCP: Justino Dhaliwal DO Date of Admission: 05/10/2020 Assessment and Plan: 1. Essential hypertension: Blood pressure in the past 24 hours ranges between 114/55-141/64, likelyrelated to recent pain. Patient currently on verapamil 180 mg nightly. Encourage DASH diet, cut down salt intake less than 2300 mg/day, may discontinue IV fluid to improve blood pressure levels when patient tolerating orally. 05/12/2020: Blood pressure controlled in the past 24 hours ranges between 127/58- 130/62. Continue same management. 05/13/2020: Blood pressure controlled in the past 24 hours ranges between 119/60- 126/56. Continue same antihypertensive medication. 2. Urinary retention postsurgical: Continue bladder scan every 6 hours and straight cath if residual more than 250 mL. If this continue 3 times then insert Hernandez. 3. CKD 3 a: Currently at baseline 1.12, repeat 1.1. Avoid nephrotoxic's, monitor closely, repeat BMP in a.m. 4. 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 05/12/2020: Hemoglobin 7.4, transfuse if less than 7, monitor closely. 05/13/2020: No repeat hemoglobin level today, we will order CBC, transfuse if less than 7. 5. 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 PMH, PSH, SH, FHX reviewed in chart review snap shot in EPIC CC: Consult for medical management HPI: Initial admission HPI by advanced manufacturing consultant physician reviewed as below: 84-year-old female with history of intertrochanteric femur fracture with complications from original surgery who is undergoing left total hip replacement today. She otherwise has a past medical history of hypertension and chronic kidney disease. We have been consulted for assistance with medicationmanagement. At this time patient is postop a few hours and is denying any pain at this time. She denies any shortness of breath. She is rather sleepy still but arouses easily and answers questions appropriately. Blood pressures are currently controlled with the last several readings being in the 1 teens to 140s systolic. She denies any chest pain or shortness of breath For further details and updates please refer to assessment and plan at the beginning of the note. ROS (10 point review of systems completed. Pertinent positives noted. Otherwise ROS is negative) : Left hip pain PMH: Per HPI and reviewed in the chart SHX: Reviewed in the chart, also the patient FHX: Reviewed in the chart, also with the patient Allergies: Reviewed in the chart Medications: sodium chloride 50 mL/hr at 05/12/20 1437 enoxaparin 40 mg Subcutaneous Daily docusate sodium 100 mg Oral Daily polyethylene glycol 17 g Oral Daily busPIRone 5 mg Oral BID melatonin ER 5 mg Oral Nightly pravastatin 10 mg Oral Daily verapamil 180 mg Oral Nightly Subjective 05/11/2020: Patient has left hip pain, vitals controlled, slightly elevation creatinine yesterday but today normal. Had left total arthroplasty as of 05/10/2020. Nursing notes, labs, vitals reviewed. 05/12/2020: Had urinary retention, straight cath last night, will continue monitor closely. 05/13/2020: Improving, no repeat CBC today, we ordered 1, transfuse if hemoglobin level less than 7.We will follow. Vital Signs: Vitals reviewed and compared with the previous ones BP 124/60 Pulse 76 Temp 98.4 F (36.9 C) (Oral) Resp 16 Ht 5' 3 (1.6 m) Wt 153 lb 9.6 oz (69.7 kg) SpO2 96% BMI 27.21 kg/m Intake/Output Summary (Last 24 hours) at 05/13/2020 0825 Last data filed at 05/13/2020 0341 Gross per 24 hour Intake 1552.56 ml Output 1075 ml Net 477.56 ml General: Age-appropriate, in no acute distress HEENT: normocephalic and atraumatic. No scleral icterus. PERRLA. Neck: supple. No thyromegaly. Lungs: clear to auscultation. No abnormal breathing sounds appreciated. Cardiac: S1, S2, RRR without murmur. No JVD. Abdomen: soft. Nontender. Bowel sounds positive. Extremities: Left hip tenderness, covered, no signs of infection at the surgical site. No clubbing,cyanosis, or edema in all extremities. Vasculature: capillary refill < 3 seconds. Pedal pulses intact bilaterally. Skin: warm and dry. Not clammy. Psych: Alert to time, person and place. Communicable. Affect appropriate Lymph: No supraclavicular ,and no anterior cervical lymphadenopathy. Neurologic: No focal deficit. CN II-XII grossly intact. Labs: Recent Labs 05/11/20 0815 05/12/20 0647 WBC 9.7 9.6 HGB 8.9* 7.4* HCT 30.3* 24.8* PLT 445* 370 Recent Labs 05/11/20 0814 05/12/20 0647 NA 142 137 K 4.3 3.9 CL 107 105 CO2 24 24 BUN 23* 20 CREATININE 1.1 1.1 CALCIUM 8.1* 7.7* No results for input(s): AST, ALT, BILIDIR, BILITOT, ALKPHOS in the last 72 hours. No results for input(s): INR in the last 72 hours. No results for input(s): CKTOTAL, TROPONINI in the last 72 hours. Microbiology: Blood culture #1: No results found for: BC Blood culture #2:No results found for: BLOODCULT2 Organism:No results found for: ORG Lab Results Component Value Date LABGRAM 05/10/2020 Few segmented neutrophils observed. No epithelial cells observed. No organisms observed. MRSA culture only:No results found for: MRSAC Urine culture: No results found for: LABURIN Respiratory culture: No results found for: CULTRESP Aerobic and Anaerobic : Lab Results Component Value Date LABAERO No growth-preliminary No growth 05/10/2020 Lab Results Component Value Date LABANAE No growth-preliminary 05/10/2020 Urinalysis: Lab Results Component Value Date NITRU NEGATIVE 05/08/2020 WBCUA 50 TO 100 05/08/2020 BACTERIA 2+ 05/08/2020 RBCUA 5 TO 10 05/08/2020 SPECGRAV 1.020 05/08/2020 GLUCOSEU NEGATIVE 05/08/2020 Radiology: XR HIP LEFT (2-3 VIEWS) Final Result Status post left total hip arthroplasty. This report has been created using voice recognition software. It may contain minor errors which are inherent in voice recognition technology. Final report electronically signed by Dr Benson Edwards on 05/10/2020 3:30 PM Xr Hip Left (2-3 Views) Result Date: 05/10/2020 PROCEDURE: XR HIP LEFT (2-3 VIEWS) CLINICAL INFORMATION: 84-year-old female who underwent left total hip arthroplasty. COMPARISON: No prior study. TECHNIQUE: 3 views of the left hip were obtained. FINDINGS: There is a left total hip arthroplasty. The acetabular and femoral components appear appropriately aligned. Some air is seen within the soft tissues. There is some high density material adjacent to the proximal aspect of the femoral portion of the arthroplasty likely related to surgery. Status post left total hip arthroplasty. This report has been created using voice recognition software. It may contain minor errors which are inherent in voice recognition technology. Final report electronically signed by Dr Benson Edwards on 05/10/2020 3:30 PM Discussed plan with patient and nurse. Patient and nurse verbalized understanding and agree. All questions addressed with concerns. Please excuse my TYPOS! * Jorge Solis PA - 05/12/2020 11:55 PM EDT Orthopaedic Progress Note SUBJECTIVE Ms. Nolan is post op day # 2 Patient s/p hardware removal left hip with conversion to left total hip arthroplasty. Patient seen resting in bed. States pain has improved as well as the use of the left hip. Overall she is doing better. NO new concerns from the patient at this time. OBJECTIVE Physical VITALS: BP (!) 126/56 Pulse 76 Temp 98.6 F (37 C) (Oral) Resp 16 Ht 5' 3 (1.6 m) Wt 153 lb 9.6 oz (69.7 kg) SpO2 96% BMI 27.21 kg/m I/O last 3 completed shifts: In: 2160.2 [P.O.:600; I.V.:1560.2] Out: 1275 [Urine:1275] LLE: Incision intact with prineo in place. NO signs of erythema, warmth, nor drainage noted. Mild swelling noted around the incision site. ROM knee, ankle, toes intact. NVI. Intact dorsalis pedal andposterior tibialis pulses. Calf soft and nontender in all compartments. Data CBC: Lab Results Component Value Date WBC 9.6 05/12/2020 HGB 7.4 05/12/2020 PLT 370 05/12/2020 PLT 207 11/11/2011 BMP: Lab Results Component Value Date NA 137 05/12/2020 K 3.9 05/12/2020 CL 105 05/12/2020 CO2 24 05/12/2020 BUN 20 05/12/2020 CREATININE 1.1 05/12/2020 CALCIUM 7.7 05/12/2020 GLUCOSE 123 05/12/2020 GLUCOSE 100 02/19/2012 Uric Acid: No components found for: URIC PT/INR: Lab Results Component Value Date PROTIME 14.9 03/23/2020 INR 1.2 03/23/2020 Troponin: No results found for: TROPONINI Urine Culture: No components found for: CURINE Current Inpatient Medications Current Facility-Administered Medications: 0.9 % sodium chloride infusion, , Intravenous, Continuous cyclobenzaprine (FLEXERIL) tablet 10 mg, 10 mg, Oral, TID PRN ondansetron (ZOFRAN) injection 4 mg, 4 mg, Intravenous, Q6H PRN enoxaparin (LOVENOX) injection 40 mg, 40 mg, Subcutaneous, Daily morphine (PF) injection 2 mg, 2 mg, Intravenous, Q2H PRN OR morphine injection 4 mg, 4 mg, Intravenous, Q2H PRN HYDROcodone-acetaminophen (NORCO) 5-325 MG per tablet 1 tablet, 1 tablet, Oral, Q4H PRN OR HYDROcodone-acetaminophen (NORCO) 5-325 MG per tablet 2 tablet, 2 tablet, Oral, Q4H PRN docusate sodium (COLACE) capsule 100 mg, 100 mg, Oral, Daily magnesium hydroxide (MILK OF MAGNESIA) 400 MG/5ML suspension 30 mL, 30 mL, Oral, Daily PRN acetaminophen (TYLENOL) tablet 650 mg, 650 mg, Oral, Q4H PRN polyethylene glycol (GLYCOLAX) packet 17 g, 17 g, Oral, Daily ALPRAZolam (XANAX) tablet 0.25 mg, 0.25 mg, Oral, Nightly PRN busPIRone (BUSPAR) tablet 5 mg, 5 mg, Oral, BID melatonin ER tablet 5 mg, 5 mg, Oral, Nightly pravastatin (PRAVACHOL) tablet 10 mg, 10 mg, Oral, Daily verapamil (CALAN SR) extended release tablet 180 mg, 180 mg, Oral, Nightly PLAN 1) Cont with current medical management 2) WBAT LLE, activity as tolerated 3) Dry dressing changes PRN, may need to address wound, possible wound vac over incision if drainage does not slow down 4) VTE prophylaxis with lovenox 5) PT/OT to eval and treat 6) Cultures negative, will continue to follow Jorge Solis PA-C * Saleem Gomes MD - 05/12/2020 7:16 AM EDT Hospitalist Progress Note Patient: Meenu Nolan Unit/Bed:[facility]19/019-A Date of : 1935 Acct: [id number] PCP: Justino Dhaliwal DO Date of Admission: 05/10/2020 Assessment and Plan: 1. Essential hypertension: Blood pressure in the past 24 hours ranges between 114/55-141/64, likelyrelated to recent pain. Patient currently on verapamil 180 mg nightly. Encourage DASH diet, cut down salt intake less than 2300 mg/day, may discontinue IV fluid to improve blood pressure levels when patient tolerating orally. 05/12/2020: Blood pressure controlled in the past 24 hours ranges between 127/58- 130/62. Continue same management. 2. Urinary retention postsurgical: Continue bladder scan every 6 hours and straight cath if residual more than 250 mL. If this continue 3 times then insert Henrandez. 3. CKD 3 a: Currently at baseline 1.12, repeat 1.1. Avoid nephrotoxic's, monitor closely, repeat BMP in a.m. 4. 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 05/12/2020: Hemoglobin 7.4, transfuse if less than 7, monitor closely. 5. 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 PMH, PSH, SH, FHX reviewed in chart review snap shot in EPIC CC: Consult for medical management HPI: Initial admission HPI by advanced manufacturing consultant physician reviewed as below: 84-year-old female with history of intertrochanteric femur fracture with complications from original surgery who is undergoing left total hip replacement today. She otherwise has a past medical history of hypertension and chronic kidney disease. We have been consulted for assistance with medicationmanagement. At this time patient is postop a few hours and is denying any pain at this time. She denies any shortness of breath. She is rather sleepy still but arouses easily and answers questions appropriately. Blood pressures are currently controlled with the last several readings being in the 1 teens to 140s systolic. She denies any chest pain or shortness of breath For further details and updates please refer to assessment and plan at the beginning of the note. ROS (10 point review of systems completed. Pertinent positives noted. Otherwise ROS is negative) : Left hip pain PMH: Per HPI and reviewed in the chart SHX: Reviewed in the chart, also the patient FHX: Reviewed in the chart, also with the patient Allergies: Reviewed in the chart Medications: sodium chloride 100 mL/hr at 05/11/20 0932 ketorolac 15 mg Intravenous Q6H enoxaparin 40 mg Subcutaneous Daily docusate sodium 100 mg Oral Daily polyethylene glycol 17 g Oral Daily busPIRone 5 mg Oral BID melatonin ER 5 mg Oral Nightly pravastatin 10 mg Oral Daily verapamil 180 mg Oral Nightly Subjective 05/11/2020: Patient has left hip pain, vitals controlled, slightly elevation creatinine yesterday but today normal. Had left total arthroplasty as of 05/10/2020. Nursing notes, labs, vitals reviewed. 05/12/2020: Had urinary retention, straight cath last night, will continue monitor closely. Vital Signs: Vitals reviewed and compared with the previous ones BP 130/62 Pulse 88 Temp 98.6 F (37 C) (Oral) Resp 16 Ht 5' 3 (1.6 m) Wt 153 lb 9.6 oz (69.7 kg) SpO2 96% BMI 27.21 kg/m Intake/Output Summary (Last 24 hours) at 05/12/2020 0716 Last data filed at 05/12/2020 0444 Gross per 24 hour Intake 3325.64 ml Output 1200 ml Net 2125.64 ml General: Age-appropriate, in no acute distress HEENT: normocephalic and atraumatic. No scleral icterus. PERRLA. Neck: supple. No thyromegaly. Lungs: clear to auscultation. No abnormal breathing sounds appreciated. Cardiac: S1, S2, RRR without murmur. No JVD. Abdomen: soft. Nontender. Bowel sounds positive. Extremities: Left hip tenderness, covered, no signs of infection at the surgical site. No clubbing,cyanosis, or edema in all extremities. Vasculature: capillary refill < 3 seconds. Pedal pulses intact bilaterally. Skin: warm and dry. Not clammy. Psych: Alert to time, person and place. Communicable. Affect appropriate Lymph: No supraclavicular ,and no anterior cervical lymphadenopathy. Neurologic: No focal deficit. CN II-XII grossly intact. Labs: Recent Labs 05/09/20 0745 05/11/20 0815 WBC 8.6 9.7 HGB 10.2* 8.9* HCT 34.3* 30.3* PLT 512* 445* Recent Labs 05/09/20 0745 05/11/20 0814 NA 142 142 K 3.8 4.3 CL 105 107 CO2 27 24 BUN 22 23* CREATININE 1.12* 1.1 CALCIUM 8.9 8.1* No results for input(s): AST, ALT, BILIDIR, BILITOT, ALKPHOS in the last 72 hours. No results for input(s): INR in the last 72 hours. No results for input(s): CKTOTAL, TROPONINI in the last 72 hours. Microbiology: Blood culture #1: No results found for: BC Blood culture #2:No results found for: BLOODCULT2 Organism:No results found for: ORG Lab Results Component Value Date LABGRAM 05/10/2020 Few segmented neutrophils observed. No epithelial cells observed. No organisms observed. MRSA culture only:No results found for: MRSAC Urine culture: No results found for: LABURIN Respiratory culture: No results found for: CULTRESP Aerobic and Anaerobic : Lab Results Component Value Date LABAERO No growth-preliminary No growth 05/10/2020 No results found for: LABANAE Urinalysis: Lab Results Component Value Date NITRU NEGATIVE 05/08/2020 WBCUA 50 TO 100 05/08/2020 BACTERIA 2+ 05/08/2020 RBCUA 5 TO 10 05/08/2020 SPECGRAV 1.020 05/08/2020 GLUCOSEU NEGATIVE 05/08/2020 Radiology: XR HIP LEFT (2-3 VIEWS) Final Result Status post left total hip arthroplasty. This report has been created using voice recognition software. It may contain minor errors which are inherent in voice recognition technology. Final report electronically signed by Dr Benson Edwards on 05/10/2020 3:30 PM Xr Hip Left (2-3 Views) Result Date: 05/10/2020 PROCEDURE: XR HIP LEFT (2-3 VIEWS) CLINICAL INFORMATION: 84-year-old female who underwent left total hip arthroplasty. COMPARISON: No prior study. TECHNIQUE: 3 views of the left hip were obtained. FINDINGS: There is a left total hip arthroplasty. The acetabular and femoral components appear appropriately aligned. Some air is seen within the soft tissues. There is some high density material adjacent to the proximal aspect of the femoral portion of the arthroplasty likely related to surgery. Status post left total hip arthroplasty. This report has been created using voice recognition software. It may contain minor errors which are inherent in voice recognition technology. Final report electronically signed by Dr Benson Edwards on 05/10/2020 3:30 PM Discussed plan with patient and nurse. Patient and nurse verbalized understanding and agree. All questions addressed with concerns. Please excuse my TYPOS! * Jorge Solis PA - 05/11/2020 11:36 PM EDT Orthopaedic Progress Note SUBJECTIVE Ms. Nolan is post op day # 1 Patient s/p hardware removal left hip with conversion to left total hip arthroplasty. Patient seen resting in bed. States pain has improved as well as the use of the left hip. Overall she is doing better. The daughter did have questions and I tried to contact her via telephone this evening however was unable to reach her. A voicemail was left stating I would attempt to call back tomorrow. NO new concerns from the patient at this time. OBJECTIVE Physical VITALS: BP (!) 127/58 Pulse 93 Temp 98.4 F (36.9 C) (Oral) Resp 17 Ht 5' 3 (1.6 m) Wt 153 lb 9.6 oz (69.7 kg) SpO2 96% BMI 27.21 kg/m I/O last 3 completed shifts: In: 3187.2 [P.O.:900; I.V.:2287.2] Out: 650 [Urine:650] LLE: Incision intact with prineo in place. NO signs of erythema, warmth, nor drainage noted. Mild swelling noted around the incision site. ROM knee, ankle, toes intact. NVI. Intact dorsalis pedal andposterior tibialis pulses. Calf soft and nontender in all compartments. Data CBC: Lab Results Component Value Date WBC 9.7 05/11/2020 HGB 8.9 05/11/2020 PLT 445 05/11/2020 PLT 207 11/11/2011 BMP: Lab Results Component Value Date NA 142 05/11/2020 K 4.3 05/11/2020 CL 107 05/11/2020 CO2 24 05/11/2020 BUN 23 05/11/2020 CREATININE 1.1 05/11/2020 CALCIUM 8.1 05/11/2020 GLUCOSE 131 05/11/2020 GLUCOSE 100 02/19/2012 Uric Acid: No components found for: URIC PT/INR: Lab Results Component Value Date PROTIME 14.9 03/23/2020 INR 1.2 03/23/2020 Troponin: No results found for: TROPONINI Urine Culture: No components found for: CURINE Current Inpatient Medications Current Facility-Administered Medications: 0.9 % sodium chloride infusion, , Intravenous, Continuous ketorolac (TORADOL) injection 15 mg, 15 mg, Intravenous, Q6H cyclobenzaprine (FLEXERIL) tablet 10 mg, 10 mg, Oral, TID PRN ondansetron (ZOFRAN) injection 4 mg, 4 mg, Intravenous, Q6H PRN enoxaparin (LOVENOX) injection 40 mg, 40 mg, Subcutaneous, Daily morphine (PF) injection 2 mg, 2 mg, Intravenous, Q2H PRN OR morphine injection 4 mg, 4 mg, Intravenous, Q2H PRN HYDROcodone-acetaminophen (NORCO) 5-325 MG per tablet 1 tablet, 1 tablet, Oral, Q4H PRN OR HYDROcodone-acetaminophen (NORCO) 5-325 MG per tablet 2 tablet, 2 tablet, Oral, Q4H PRN docusate sodium (COLACE) capsule 100 mg, 100 mg, Oral, Daily magnesium hydroxide (MILK OF MAGNESIA) 400 MG/5ML suspension 30 mL, 30 mL, Oral, Daily PRN acetaminophen (TYLENOL) tablet 650 mg, 650 mg, Oral, Q4H PRN polyethylene glycol (GLYCOLAX) packet 17 g, 17 g, Oral, Daily ALPRAZolam (XANAX) tablet 0.25 mg, 0.25 mg, Oral, Nightly PRN busPIRone (BUSPAR) tablet 5 mg, 5 mg, Oral, BID melatonin ER tablet 5 mg, 5 mg, Oral, Nightly pravastatin (PRAVACHOL) tablet 10 mg, 10 mg, Oral, Daily verapamil (CALAN SR) extended release tablet 180 mg, 180 mg, Oral, Nightly PLAN 1) Cont with current medical management 2) WBAT LLE, activity as tolerated 3) Post-op xrays show good alignment of prosthesis with no obvious settling 4) VTE prophylaxis with lovenox 5) PT/OT to eval and treat 6) Cultures negative, will continue to follow 7) Dry dressing changes PRN Jorge Solis PA-C * Missy Tinajero, PT - 05/11/2020 2:37 PM EDT [facility] INPATIENT PHYSICAL THERAPY EVALUATION [facility] 7K - 7K-19/019-A Time In: 1325 Time Out: 1354 Timed Code Treatment Minutes: 10 Minutes Minutes: 29 Date: 05/11/2020 Patient Name: Meenu Nolan, Gender: female : 1935 (84 y.o.) Referring Practitioner: Sylvia Monte CNP Diagnosis: Periprosthetic hip fracture Additional Pertinent Hx: Patient is an 84-year-old female with history of intertrochanteric femur fracture with complications from original surgery who is undergoing left total hip replacement today.She otherwise has a past medical history of hypertension and chronic kidney disease. We have been consulted for assistance with medication management. At this time patient is postop a few hours and is denying any pain at this time. She denies any shortness of breath. She is rather sleepy still but arouses easily and answers questions appropriately. Blood pressures are currently controlled with the last several readings being in the 1 teens to 140s systolic. She denies any chest pain or shortness of breath. Pt is s/p L HAYDEE 05/[address] Lagos. Restrictions/Precautions: Restrictions/Precautions: General Precautions, Fall Risk, Weight Bearing, Surgical Protocols Left Lower Extremity Weight Bearing: Weight Bearing As Tolerated Position Activity Restriction Hip Precautions: No hip flexion > 90 degrees, No ABduction, No hip internal rotation Subjective: Chart Reviewed: Yes Patient assessed for rehabilitation services?: Yes Family / Caregiver Present: No Subjective: RN approved session, pt seated in recliner, agreeable to PT, ready to return to bed. Per OT, required +3 and Romario Stedy to get up to the chair. Pt oriented however unable to provide clearPLOF. General: Overall Orientation Status: Within Functional Limits Vision: Within Functional Limits Hearing: Exceptions to WFL Hearing Exceptions: Hard of hearing/hearing concerns Pain: 03/06 Social/Functional History: Lives With: Alone Type of Home: Facility([facility] x6-7 months) ADL Assistance: Needs assistance(recently requiring assist with all at [facility]) Homemaking Assistance: (dependent on staff) Ambulation Assistance: Needs assistance Transfer Assistance: Needs assistance Additional Comments: Pt reports being a long time since she has walked, reports living at [facility] x6-7 months, was starting to work on standing however insurance cut coverage and therapies recently ceased. Pt unable to state last time she walked/stood however belives around September she was still living at home with her . No family present. OBJECTIVE: Range of Motion: Bilateral Lower Extremity: Impaired - R LE WFL, L hip within hip precautions Strength: Left Lower Extremity: Impaired - L hip 2-/5 Balance: Static Sitting Balance: Contact Guard Assistance Static Standing Balance: Maximum Assistance, X 2, only able to achieve ~50% full stand, just enoughto place seat pads Bed Mobility: Sit to Supine: Maximum Assistance, X 1 Transfers: Sit to Stand: Maximum Assistance, X 2, in romario stedy, cues for setup, only able to achieve ~50% full stand, just enough to place pads, manual assist at buttocks Stand to Sit:Maximum Assistance, X 2 Stand Pivot:Dependent (use of romario stedy for chair to bed transfer) Exercise: Patient was guided in 1 set(s) 10 reps of exercise to both lower extremities. Ankle pumps, Quad sets, Short arc quads and Hip abduction/adduction. Exercises were completed for increased independence with functional mobility. Functional Outcome Measures: Completed AM-[facility] Inpatient Mobility without Stair Climbing Raw Score : 6 AM-[facility] Inpatient without Stair Climbing T-Scale Score : 26.48 ASSESSMENT: Activity Tolerance: Patient tolerance of treatment: good. Treatment Initiated: Treatment and education initiated within context of evaluation. Evaluation time included review of current medical information, gathering information related to past medical, social and functional history, completion of standardized testing, formal and informal observation of tasks, assessment of data and development of plan of care and goals. Treatment time included skilled education and facilitation of tasks to increase safety and independence with functional mobility forimproved independence and quality of life. See above exercises. Assessment: Body structures, Functions, Activity limitations: Decreased functional mobility , Increased pain, Decreased balance, Decreased strength, Decreased safe awareness, Decreased cognition Assessment: Pt tolerates session fair, limited by post-op pain and weakness, limited PLOF prior to admission. PT to continue to progress strength and functional mobility. Prognosis: Fair REQUIRES PT FOLLOW UP: Yes Discharge Recommendations: Discharge Recommendations: Subacute/[facility] Facility Patient Education: PT Education: PT Role, Plan of Care Equipment Recommendations: Equipment Needed: No Plan: Times per week: 4-5x O Current Treatment Recommendations: Strengthening, Home Exercise Program, Balance Training, Functional Mobility Training, Transfer Training, Wheelchair Mobility Training, Patient/Caregiver Education & Training, Safety Education & Training Goals: Patient goals : to return to SNF Short term goals Time Frame for Short term goals: by discharge Short term goal 1: Pt to transfer supine <--> sit max A x 1 to enable pt to get in/out of bed. Short term goal 2: Pt to transfer sit <--> stand mod A x 2 for increased functional mobility. skilled nursing goals Time Frame for long term care administrator goals : NA due to short length of stay. Following session, patient left in safe position with all fall risk precautions in place. * Marcia Escalera, OT - 05/11/2020 10:44 AM EDT [facility] INPATIENT OCCUPATIONAL THERAPY [facility] 7K EVALUATION Time: Time In: 958 Time Out: 1034 Timed Code Treatment Minutes: 26 Minutes Minutes: 36 Date: 05/11/2020 Patient Name: Meenu Nolan, Gender: female : 1935 (84 y.o.) Referring Practitioner: Sylvia Monte, GLORIA - KENISHA Diagnosis: periprosthetic hip fracture Additional Pertinent Hx: s/p removal of hardware and conversion to left total hip 05/10/2020 Restrictions/Precautions: Restrictions/Precautions: General Precautions, Fall Risk, Weight Bearing, Surgical Protocols Left Lower Extremity Weight Bearing: Weight Bearing As Tolerated Position Activity Restriction Hip Precautions: No hip flexion > 90 degrees, No ABduction, No hip internal rotation Subjective Chart Reviewed: Yes, Orders, Progress Notes, History and Physical, Imaging, Labs, Operative Notes, Previous Admission Patient assessed for rehabilitation services?: Yes Family / Caregiver Present: No Subjective: pleasant, cooperative, some confusion noted Comments: RN ok'd OT Pain: Pain Assessment Patient Currently in Pain: Yes Pain Assessment: 0-10 Pain Level: 5 Pain Type: Acute pain;Surgical pain Pain Location: Hip Social/Functional History: Lives With: Alone Type of Home: Facility([facility] x6-7 [facility]) ADL Assistance: Needs assistance(recently requiring assist with all at [facility]) Homemaking Assistance: (dependent on staff) Ambulation Assistance: Needs assistance Transfer Assistance: Needs assistance Additional Comments: Pt reports being a long time since she has walked, reports living at [facility] x6-7 months, was starting to work on standing however insurance cut coverage and therapies recently ceased. Pt unable to state last time she walked/stood however belives around September she was still living at home with her . No family present. VISION:WFL HEARING: WFL COGNITION: Decreased Recall, Decreased Insight, Impaired Memory, Decreased Problem Solving, Decreased Safety Awareness and Difficulty Following Commands RANGE OF MOTION: Bilateral Upper Extremity: WNL STRENGTH: Bilateral Upper Extremity: Impaired - gross deconditioning ADL: Lower Extremity Dressing: Dependent. donning socks Toileting: Dependent. 3 persons for hygiene following incontinence. BALANCE: Sitting Balance: Contact Guard Assistance. EOB Standing Balance: Maximum Assistance, X 2. within romario stephilippe BED MOBILITY: Supine to Sit: Moderate Assistance with cues and inc time TRANSFERS: Sit to Stand: Maximum Assistance, x3, pt unable to clear paddles on romario beard without 3rd person. from EOB Stand to Sit: Maximum Assistance, X 2. to recliner from Romario saul FUNCTIONAL MOBILITY: Assistive Device: romario stedy Assist Level: Dependent. Distance: EOB>recliner Exercise: Pt completed B UE exs to increase strength required to complete ADL routine, x 1 set, x 15 reps, noresistance: shoulder flexion, chest press, bicep curls, horizontal AB/ADduction. slow pace, exhibits mod fatigue, requires min RBs during exs. Activity Tolerance: Patient tolerance of treatment: fair. Assessment: Assessment: Pt would continue to benefit from skilled OT intervention to maximize pt safety and independence with performing self care tasks and functional mobility and to ensure safe transition to the next level of care and return to OF. Performance deficits / Impairments: Decreased functional mobility , Decreased safe awareness, Decreased balance, Decreased ADL status, Decreased cognition, Decreased endurance, Decreased strength Prognosis: Fair Treatment Initiated: Treatment and education initiated within context of evaluation. Evaluation time included review of current medical information, gathering information related to past medical, social and functional history, completion of standardized testing, formal and informal observation of tasks, assessment of data and development of plan of care and goals. Treatment time included skilled education and facilitation of tasks to increase safety and independence with ADL's for improved functional independence and quality of life. Discharge Recommendations: Subacute/[facility] Facility, Patient would benefit from continued therapy after discharge Patient Education: OT Education: OT Role, Plan of Care, Precautions, ADL Adaptive Strategies, Transfer Training, Equipment, Home Exercise Program, Orientation Barriers to Learning: cognition Equipment Recommendations: Equipment Needed: No Other: defer to next level of care Plan: Times per week: 5-6x Current Treatment Recommendations: Strengthening, Endurance Training, Balance Training, Functional Mobility Training, Safety Education & Training, Pain Management, Self-Care / ADL, Equipment Evaluation, Education, & procurement, Patient/Caregiver Education & Training, Cognitive Reorientation. See long-term goal time frame for expected duration of plan of care. If no long-term goals est ablished, a short length of stay is anticipated. Goals: Patient goals : to walk Short term goals Time Frame for Short term goals: By discharge Short term goal 1: Pt will demonstrate functional t/fs within ROMARIO SAUL with mod A x2 for inc easewith BSC use Short term goal 2: Pt will demo improved activity tolerance as evidenced by 15 reps of light-moderate BUE strengthening for increasing functional strength required for transfers Short term goal 3: Pt will complete LB ADLs with mod A and LHAE for increased indep with self care Short term goal 4: Pt will complete seated grooming tasks with setup and min cues for increased independence with BADLs Following session, patient left in safe position with all fall risk precautions in place. * Saleem Gomes MD - 05/11/2020 8:31 AM EDT Hospitalist Progress Note Patient: Meenu Nolan Unit/Bed:[address] [place] [address] Date of : 1935 Acct: [id number] PCP: Justino Dhaliwal DO Date of Admission: 05/10/2020 Assessment and Plan: 1. Essential hypertension: Blood pressure in the past 24 hours ranges between 114/55-141/64, likelyrelated to recent pain. Patient currently on verapamil 180 mg nightly. Encourage DASH diet, cut down salt intake less than 2300 mg/day, may discontinue IV fluid to improve blood pressure levels when patient tolerating orally. 2. CKD 3 a: Currently at baseline 1.12, repeat 1.1. Avoid nephrotoxic's, monitor closely, repeat BMP in a.m. 3. 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 4. 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 PMH, PSH, SH, FHX reviewed in chart review snap shot in [facility]: Consult for medical management HPI: Initial admission HPI by advanced manufacturing consultant physician reviewed as below: 84-year-old female with history of intertrochanteric femur fracture with complications from original surgery who is undergoing left total hip replacement today. She otherwise has a past medical history of hypertension and chronic kidney disease. We have been consulted for assistance with medicationmanagement. At this time patient is postop a few hours and is denying any pain at this time. She denies any shortness of breath. She is rather sleepy still but arouses easily and answers questions appropriately. Blood pressures are currently controlled with the last several readings being in the 1 teens to 140s systolic. She denies any chest pain or shortness of breath For further details and updates please refer to assessment and plan at the beginning of the note. ROS (10 point review of systems completed. Pertinent positives noted. Otherwise ROS is negative) : Left hip pain PMH: Per HPI and reviewed in the chart SHX: Reviewed in the chart, also the patient FHX: Reviewed in the chart, also with the patient Allergies: Reviewed in the chart Medications: sodium chloride 100 mL/hr at 05/10/20 1645 ketorolac 15 mg Intravenous Q6H enoxaparin 40 mg Subcutaneous Daily docusate sodium 100 mg Oral Daily polyethylene glycol 17 g Oral Daily busPIRone 5 mg Oral BID melatonin ER 5 mg Oral Nightly pravastatin 10 mg Oral Daily verapamil 180 mg Oral Nightly Subjective 05/11/2020: Patient has left hip pain, vitals controlled, slightly elevation creatinine yesterday but today normal. Had left total arthroplasty as of 05/10/2020. Nursing notes, labs, vitals reviewed. Vital Signs: Vitals reviewed and compared with the previous ones BP 136/62 Pulse 72 Temp 98.4 F (36.9 C) (Oral) Resp 18 Ht 5' 3 (1.6 m) Wt 153 lb 9.6 oz (69.7 kg) SpO2 98% BMI 27.21 kg/m Intake/Output Summary (Last 24 hours) at 05/11/2020 0831 Last data filed at 05/11/2020 0440 Gross per 24 hour Intake 3007.57 ml Output 200 ml Net 2807.57 ml General: Age-appropriate, in no acute distress HEENT: normocephalic and atraumatic. No scleral icterus. PERRLA. Neck: supple. No thyromegaly. Lungs: clear to auscultation. No abnormal breathing sounds appreciated. Cardiac: S1, S2, RRR without murmur. No JVD. Abdomen: soft. Nontender. Bowel sounds positive. Extremities: Left hip tenderness, covered, no clubbing, cyanosis, or edema in all extremities. Vasculature: capillary refill < 3 seconds. Pedal pulses intact bilaterally. Skin: warm and dry. Not clammy. Psych: Alert to time, person and place. Communicable. Affect appropriate Lymph: No supraclavicular ,and no anterior cervical lymphadenopathy. Neurologic: No focal deficit. CN II-XII grossly intact. Labs: Recent Labs 05/09/20 0745 WBC 8.6 HGB 10.2* HCT 34.3* PLT 512* Recent Labs 05/09/20 0745 NA 142 K 3.8 CL 105 CO2 27 BUN 22 CREATININE 1.12* CALCIUM 8.9 No results for input(s): AST, ALT, BILIDIR, BILITOT, ALKPHOS in the last 72 hours. No results for input(s): INR in the last 72 hours. No results for input(s): CKTOTAL, TROPONINI in the last 72 hours. Microbiology: Blood culture #1: No results found for: BC Blood culture #2:No results found for: BLOODCULT2 Organism:No results found for: ORG Lab Results Component Value Date LABGRAM 05/10/2020 Few segmented neutrophils observed. No epithelial cells observed.No organisms observed. MRSA culture only:No results found for: MRSAC Urine culture: No results found for: LABURIN Respiratory culture: No results found for: CULTRESP Aerobic and Anaerobic : Lab Results Component Value Date LABAERO No growth-preliminary 05/10/2020 No results found for: LABANAE Urinalysis: Lab Results Component Value Date NITRU NEGATIVE 05/08/2020 WBCUA 50 TO 100 05/08/2020 BACTERIA 2+ 05/08/2020 RBCUA 5 TO 10 05/08/2020 SPECGRAV 1.020 05/08/2020 GLUCOSEU NEGATIVE 05/08/2020 Radiology: XR HIP LEFT (2-3 VIEWS) Final Result Status post left total hip arthroplasty. This report has been created using voice recognition software. It may contain minor errors which are inherent in voice recognition technology. Final report electronically signed by Dr Benson Edwards on 05/10/2020 3:30 PM Xr Hip Left (2-3 Views) Result Date: 05/10/2020 PROCEDURE: XR HIP LEFT (2-3 VIEWS) CLINICAL INFORMATION: 84-year-old female who underwent left total hip arthroplasty. COMPARISON: No prior study. TECHNIQUE: 3 views of the left hip were obtained. FINDINGS: There is a left total hip arthroplasty. The acetabular and femoral components appear appropriately aligned. Some air is seen within the soft tissues. There is some high density material adjacent to the proximal aspect of the femoral portion of the arthroplasty likely related to surgery. Status post left total hip arthroplasty. This report has been created using voice recognition software. It may contain minor errors which are inherent in voice recognition technology. Final report electronically signed by Dr Benson Edwards on 05/10/2020 3:30 PM Discussed plan with patient and nurse. Patient and nurse verbalized understanding and agree. All questions addressed with concerns. Please excuse my TYPOS! * Devyn Mcgovern RN - 05/10/2020 2:55 PM EDT 1353 Arouses to name on arrival to PACU with O2 3L NC , HOB elevated 1400 pt awake and oriented , pt c/o # 9 Lt hip pain 1405 medicated with Fentanyl 50 mcg IV 1410 pain a # 8 medicated with Fentanyl 50 mcg and Morphine 2 mg IV 1415 pain unchanged medicated with morphine 2 mg IV 1430 resting on and off 1445 resting resp easy , family updated 1500 resting resp easy 1515 resting resp easy 1540 awakens easily to name , states hip apin tolerable 1544 meets criteria for discharge , transported to K family upstairs waiting * Natali Tobias RN - 05/10/2020 10:43 AM EDT The patient arrived with a family day carer. Patient in a wheelchair. Patient was transferred with the help of 3 nurses. Patient in bed with call light in reach. documented in this encounter* Crystal Jones RN - 06/13/2020 10:45 AM EDT Patient non ambulatory and remains in wheelchair for visit. Wound documentation a challenge as staff has to get on floor to assess and treat wounds do to location. * Glenn Martínez DPM - 06/13/2020 10:45 AM EDT [facility] Progress Note and Procedure Note Meenu Nolan AGE: 84 y.o. GENDER: female : 1935 EPISODE DATE: 06/13/2020 Subjective: Chief Complaint Patient presents with Wound Check bilateral heels pain and non healing HISTORY of PRESENT ILLNESS HPI Meenu Nolan is a 84 y.o. female who presents today for wound/ulcer evaluation and treatment History of Wound Context: 2nd visit in treatment cycle Last visit 05-30-2020 DDx: LEft heel decubitus ; unstageable Tx: autolytic transparent dressings Off loading MRR: ID consult ; all TELE [facility] Wound/Ulcer Pain Timing/Severity: constant, mild Quality of pain: dull, burning, squeezing, throbbing, shooting Severity: 3 / 10 Modifying Factors: Pain worsens with direct pressure Associated Signs/Symptoms: edema, drainage and pain Ulcer Identification: Ulcer Type: pressure Contributing Factors: edema, chronic pressure, arterial insufficiency and decreased tissue oxygenation Wound: DTI PAST MEDICAL HISTORY Diagnosis Date Chronic kidney disease Hypertension PAST SURGICAL HISTORY Past Surgical History: Procedure Laterality Date CHOLECYSTECTOMY HYSTERECTOMY JOINT REPLACEMENT knee REVISION TOTAL HIP ARTHROPLASTY Left 05/10/2020 HARDWARE REMOVAL LEFT HIP, CONVERSION TO LEFT TOTAL HIP performed by Chele Lagos MD at [facility] OR FAMILY HISTORY History reviewed. No pertinent family history. SOCIAL HISTORY Social History Tobacco Use Smoking status: Never Smoker Smokeless tobacco: Never Used Substance Use Topics Alcohol use: No Drug use: No ALLERGIES No Known Allergies MEDICATIONS Current Outpatient Medications on File Prior to Encounter Medication Sig Dispense Refill Nutritional Supplements (LAURIE) PACK Take 1 each by mouth once QUEtiapine (SEROQUEL) 25 MG tablet Take 25 mg by mouth 2 times daily LORazepam (ATIVAN) 0.5 MG tablet Take 0.5 mg by mouth every 8 hours. HYDROcodone-acetaminophen (NORCO) 5-325 MG per tablet Take 1 tablet by mouth every 4 hours as needed for Pain. Pain 1-5 2 tablets for pain 6-10 every 4 hours melatonin 3 MG TABS tablet Take 5 mg by mouth nightly Multiple Vitamins-Minerals (THERAPEUTIC MULTIVITAMIN-MINERALS) tablet Take 1 tablet by mouth daily ascorbic acid (VITAMIN C) 500 MG tablet Take 500 mg by mouth 2 times daily busPIRone (BUSPAR) 5 MG tablet Take 5 mg by mouth 2 times daily enoxaparin (LOVENOX) 40 MG/0.4ML injection Inject 0.4 mLs into the skin daily 18 Syringe 0 acetaminophen (TYLENOL) 325 MG tablet Take 650 mg by mouth every 6 hours as needed for Pain verapamil (CALAN SR) 180 MG extended release tablet Take 180 mg by mouth nightly pravastatin (PRAVACHOL) 10 MG tablet Take 10 mg by mouth daily desoximetasone (TOPICORT) 0.25 % cream Apply topically 2 times daily Apply topically 2 times daily. No current facility-administered medications on file prior to encounter. REVIEW OF SYSTEMS A comprehensive review of systems was negative except for: Hematologic/lymphatic: positive for postop lymphedema Musculoskeletal: positive for muscle weakness and THR Objective: BP (!) 146/61 Pulse 76 Temp 98.6 F (37 C) (Tympanic) Resp 16 Wt Readings from Last 3 Encounters: 05/10/20 153 lb 9.6 oz (69.7 kg) 04/06/20 158 lb (71.7 kg) 03/23/20 159 lb (72.1 kg) PHYSICAL EXAM General Appearance: alert and oriented to person, place and time, agitated and frail-appearing Cardiovascular: distal pulses diminished and +CFT, > 3 sec all toes Musculoskeletal: Limited R.O.M. Left hip , in extension Neurologic: reflexes normal and symmetric, sensation to light touch intact, vibratory sensation normal and Babinski sign negative Skin : LLE -- heel ; FT+ necrotic eschar ; peripheral lysis / separation Size and photo documentation surrounding tissue stable and non boggy No erythema or warmth +PMT on direct exam Size , quality and photo documentation charted in template Physical Exam Musculoskeletal: Feet: Assessment: FT+ heel decubitus ; amenable to debridement Vascular perfusion adequate locally Hx ID consult ; TeleHeath only Patient Active Problem List Diagnosis Code General weakness R53.1 Hypokalemia E87.6 Malaise R53.81 Cellulitis of right upper limb including hand L03.113 Bacteriuria with pyuria / Low WBCs but 4 plus bacteria R82.71, R82.81 Periprosthetic intertrochanteric fracture of femur M97.8XXA, Z96.649 Decubitus ulcer of heel, left, unstageable ([facility]) L89.620 REC: excisional debridement / culture Specialized local dressing care Constant off loading Procedure Note Indications: Based on my examination of this patient's wound(s)/ulcer(s) today, debridement is required to promote healing and evaluate the wound base. Performed by: Glenn Martínez DPM Consent obtained: Yes Time out taken: Yes Pain Control: [facility] Debridement:Excisional Debridement Using curette, #15 blade scalpel, forceps and #11 blade scalpel the wound(s)/ulcer(s) was/were sharply debrided down through and including the removal of epidermis, dermis, subcutaneous tissue and muscle/fascia. Devitalized Tissue Debrided: fibrin, biofilm, slough and necrotic/eschar Pre Debridement Measurements: Are located in the Wound/Ulcer Documentation Flow Sheet Wound/Ulcer #: [id number] Post Debridement Measurements: Wound/Ulcer Descriptions are Pre Debridement except measurements: Wound 05/11/20 Heel Left;Posterior (Active) Wound Image 05/30/20 1318 Wound Pressure Unstageable 05/30/20 1318 Dressing Status Old drainage 05/30/20 1318 Dressing Changed Changed/New 05/30/20 1318 Dressing/Treatment Transparent film dressing 05/30/20 1346 Wound Cleansed Rinsed/Irrigated with saline 05/30/20 1318 Wound Length (cm) 1.2 cm 05/30/20 1318 Wound Width (cm) 2.2 cm 05/30/20 1318 Wound Surface Area (cm^2) 2.64 cm^2 05/30/20 1318 Wound Assessment Black;Red 05/30/20 1318 Drainage Amount None 05/30/20 1318 Odor None 05/30/20 1318 Margins Attached edges;Defined edges 05/30/20 1318 Corrine-wound Assessment Clean;Dry;Intact 05/30/20 1318 Culture Taken No 05/30/20 1346 Number of days: 33 Wound 05/30/20 Leg Left;Posterior;Lateral Left posterior/lateral leg (Active) Wound Image 05/30/20 1346 Dressing Status Old drainage 05/30/20 1318 Dressing/Treatment Collagen with Ag;Dry dressing 05/30/20 1346 Wound Cleansed Rinsed/Irrigated with saline 05/30/20 1318 Wound Length (cm) 2 cm 05/30/20 1318 Wound Width (cm) 1.6 cm 05/30/20 1318 Wound Surface Area (cm^2) 3.2 cm^2 05/30/20 1318 Post-Procedure Length (cm) 2.2 cm 05/30/20 1346 Post-Procedure Width (cm) 1.5 cm 05/30/20 1346 Post-Procedure Depth (cm) 0.3 cm 05/30/20 1346 Post-Procedure Surface Area (cm^2) 3.3 cm^2 05/30/20 1346 Post-Procedure Volume (cm^3) 0.99 cm^3 05/30/20 1346 Wound Assessment [place];Slough;Yellow 05/30/20 1346 Drainage Amount Moderate 05/30/20 1346 Drainage Description Serosanguinous 05/30/20 1318 Odor None 05/30/20 1318 Corrine-wound Assessment Clean;Dry;Intact 05/30/20 1318 Non-staged Wound Description Full thickness 05/30/20 1346 [place]%Wound Bed 50 05/30/20 1346 Yellow%Wound Bed 50 05/30/20 1346 Black%Wound Bed 90 05/30/20 1318 Culture Taken No 05/30/20 1346 Number of days: 13 Incision 05/10/20 Femoral Left;Proximal;Lateral (Active) Wound Assessment Clean;Dry;Intact 05/13/20 1535 Corrine-wound Assessment Clean;Dry;Intact 05/13/20 1535 Closure Other (Comment) 05/13/20 1535 Drainage Amount None 05/15/20 0854 Odor None 05/15/20 0854 Dressing/Treatment Other (comment) 05/13/20 1535 Dressing Status Clean;Dry;Intact 05/15/20 0854 Number of days: 34 Percent of Wound(s)/Ulcer(s) Debrided: 100+% Total Surface Area Debrided: 2.75 sq cm Diabetic/Pressure/Non Pressure Ulcers only: Ulcer: Pressure ulcer, Stage 3 Estimated Blood Loss: Minimal Hemostasis Achieved: by pressure Procedural Pain: 4 / 10 Post Procedural Pain: 0 / 10 Response to treatment: Poorly tolerated by patient., With complaints of pain. Plan: Treatment Note please see attached Discharge Instructions Written patient dismissal instructions given to patient and signed by patient or POA. * Mary Newman, RD, LD - 06/13/2020 10:45 AM EDT Wound Management Medical Nutrition Therapy Assessment Age- 84 y.o. Sex- female Chief Complaint- Wound Check (bilateral heels) Height- Height: 5' 3 (160 cm) Weight- Weight: 161 lb 8 oz (73.3 kg)([facility] weight) IBW- 115 # %IBW- 141 % Body mass index is 28.61 kg/m . - Overweight Wt Readings from Last 3 Encounters: 06/13/20 161 lb 8 oz (73.3 kg) 05/10/20 153 lb 9.6 oz (69.7 kg) 04/06/20 158 lb (71.7 kg) UBW- 153-162 # %UBW- 100 % Significant Weight Change- Yes Unintentional- Yes (PO intake related per Pt) Estimated Needs- BEE- 1162 kcal Total Calorie Needs- 7729-8924 (25-28 kcal/kg) Total Protein Needs- 78-94 (1.5-1.8 g/kg) Patient Diagnosis Date Acute hypokalemia 04/04/2020 Acute weakness Anxiety disorder Chronic kidney disease Hyperlipidemia Hypertension Muscle weakness Nondisplaced intertrochanteric fracture of left femur, subsequent encounter for closed fracture with routine healing Repeated falls Unable to walk 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 Staff from [facility] Pt is on a daily MVI w/minerals and Laurie. Pt reports eating protein foods. Medical Nutrition Therapy Discussed- encouraged continued protein intakes to aid healing, continueddaily MVI w/minerals and Laurie. Nutrition Therapy Recommendations- 1. Continue to have 3 well balanced meals with a variety of lean meats, fresh fruits, vegetables, whole grains and low fat dairy. 2. Continue daily multivitamin with minerals and Lauire to assist with wound healing needs. 3. Include protein foods with meals and snacks to aid healing needs (eggs, fish, chicken, etc.) Follow-up- quarterly Mary Newman RDN, LD 06/13/2020 1:21 PM PQRS Measure: #1(Diabetes: Hemoglobin A1C Poor Control) - NA PQRS Measure #130 (Documentation of Current Medications in Medical Record) - yes documented in this encounter* Mary Newman RD, LD - 09/12/2020 10:45 AM EST Wound Management Medical Nutrition Therapy Follow-Up Chart review Wt Readings from Last 3 Encounters: 06/13/20 161 lb 8 oz (73.3 kg) 05/10/20 153 lb 9.6 oz (69.7 kg) 04/06/20 158 lb (71.7 kg) Significant Weight Change- Yes (5.1% gain April to May) Unintentional- Yes Patient HYDROcodone-acetaminophen, LORazepam, QUEtiapine, acetaminophen, ascorbic acid, busPIRone, calcitRIOL, desoximetasone, docusate sodium, enoxaparin, ferrous sulfate, furosemide, hydrALAZINE, laurie, melatonin, polyethylene glycol, pravastatin, therapeutic multivitamin-minerals, and verapamil Labs - Lab Results Component Value Date LABALBU 3.8 09/11/2020 LABALBU 4.4 02/19/2012 GLUCOSE 150 09/11/2020 GLUCOSE 100 02/19/2012 LABA1C 5.6 09/07/2017 Other Labs - none noted Nutrition Therapy Recommendations- 1. Continue to have 3 well balanced meals with a variety of lean meats, fresh fruits, vegetables, whole grains and low fat dairy. 2. Continue with daily MVI w/minerals and Laurie to aid wound healing needs. 3. Include protein foods with meals and snacks to aid healing needs. 4. Limit sodium to < 2,000 mg per day due to CKD. Follow-up- quarterly Mary Newman RDN, LD 09/12/2020 1:39 PM PQRS Measure: #1(Diabetes: Hemoglobin A1C Poor Control) - NA PQRS Measure #130 (Documentation of Current Medications in Medical Record) - yes documented in this encounter Summary Purpose Family History No Family History Records Found Relationship Condition Age at Onset Recorded Date/T nidia brother Myocardial infarction Unknown sister Myocardial infarction Unknown Malignant neoplasm Unknown sister Malignant neoplasm Unknown Chief Complaint and Reason for Visit Chief Complaint Urinary Tract Infect ion / UTI Reason for Visit Acute metabolic ence phalopathy PREST[place] (acute kidney injury) Constipation Dementia Hallucinations Hypertension Right nephrolithiasis Staghorn calculus UTI (urinary tract infection) Additional Source Comments Reason for Visit (unrecogniz ed section and content) Status Reason Specialty Diagnoses / Procedures Referre d By Contact Referred To Contact [facility]iology Diagnoses Chronic kidney disease, stage IV (severe) (HCC) Procedures US RENAL COMPLETE Iboaya, Benah[place] U, DO Reason Comments Fall C/o left hip pain st atus post /fall LOC Laceration posterior head from fall Reason Comments Leg Pain Fall at home prior t o arrival. Left leg and hip pain with shortening. Reason Comments Fatigue Generaliezed weaknes s, pain in joints. 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 Displaced intertrochanteric fracture of left femur, subsequent encounter for closed fracture with routine healing LEFT HIP PERIPROSTHETIC FEMUR FX WITH COMPLETE DISPLACEMENT Procedures HI REMOVAL SUPERFICIAL IMPLANT HI CONV PREV HIP SURG TO TOT HIP ARTHROPLAS HARDWARE REMOVAL LEFT HIP, CONVERSION TO LEFT TOTAL HIP Chele Lagos MD [address] [place] [address] [facility] Reason Comments Wound Check Bilateral heels Reason Comments Wound Check bilateral heels Reason Comments Wound Check bilateral heel/leg w ounds Reason Comments Wound Check left heel Reason Comments Wound Check Left heel Reason Comments 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 SOURCE (unrecogn ized section and content) DATE CREATED AUTHOR 05/22/2020 [facility] DATE CREATED AUTHOR AUTHOR'S ORGANIZ ATION 08/29/2020 [facility] DATE CREATED AUTHOR AUTHOR'S ORGANIZ ATION 04/20/2021 [facility] DATE CREATED AUTHOR AUTHOR'S ORGANIZ ATION 10/15/2021 [facility] DATE CREATED AUTHOR AUTHOR'S ORGANIZ ATION 09/07/2023 [facility] DATE CREATED AUTHOR AUTHOR'S ORGANIZ ATION 09/14/2023 Derrick Freyus [facility] DATE CREATED AUTHOR AUTHOR'S ORGANIZ ATION 09/30/2023 [facility] Care Teams (unrecognized sec tion and content) Team Status: Active Member Role Status Dates Brina Cordero MD Primary Care Provider Active Team Status: Active Member Role Status Dates Destiny Irwin MD Emergency Provider Active Brina Cordero MD Primary Care Provider Active Riky Bundy MD Admit Provider, Attending P ahsan Active Goals (unrecognized section and content) Goals may be documented in a n alternate section Source Comments (unrecognize d section and content) In the event this informatio n is protected by the Federal Confidentiality of Alcohol and Drug Abuse Patient Records regulations: The Federal rules restrict any use of the information to criminally investigate or prosecute any alcohol or drug abuse patient.[facility] [place] the event this information is protected by the Federal Confidentiality of Alcohol and Drug Abuse Patient Records regulations: The Federal rules restrict any use of the information to criminally investigate or prosecute any alcohol or drug abuse patient.[facility] FOR RECORDS PERTAINING TO PATIENTS WHO ARE OR HAVE BEEN ENROLLED IN A CHEMICAL DEPENDENCY/SUBSTANCEABUSE PROGRAM, SOME INFORMATION MAY BE OMITTED. This clinical summary was aggregated from multiple sources. Caution should be exercised in using it in the provision of clinical care. This summary normalizes information from multiple sources, and as a consequence, information in this document may materially change the coding, format and clinical context of patient data. In addition, data may be omitted in some cases. CLINICAL DECISIONS SHOULD BE BASED ON THE PRIMARY CLINICAL RECORDS. [facility]. provides no warranty or guarantee of the accuracy or completeness of information in this document.
[2023-10-01 08:05] LABS: Basophils Percent Auto 0.1 % (0.2-2.0); Eosinophils Absolute Auto 0.2 10^3/uL (0.0-0.7); Eosinophils Percent Auto 2.7 % (0.9-7.0); Hematocrit 36.8 % (36.0-48.0); Hemoglobin 11.4 g/dL (12.0-16.0); Immature Granulocytes Abs Auto 0.01 10^3/uL (0.00-0.03); Immature Granulocytes Pct Auto 0.1 % (0.0-0.5); Lymphocytes Absolute Auto 1.8 10^3/uL (1.2-3.8); Lymphocytes Percent Auto 27.4 % (20.5-60.0); Mean Corpuscular Hemoglobin 31.4 pg (26.7-34.0); Mean Corpuscular Volume 101.4 fL (81.0-99.0); Mean Platelet Volume 10.2 fL (9.5-13.5); Monocytes Absolute Auto 0.9 10^3/uL (0.3-0.8); Monocytes Percent Auto 12.9 % (1.7-12.0); Neutrophils Absolute Auto 3.8 10^3/uL (1.4-6.5); Neutrophils Percent Auto 56.8 % (43.0-75.0); Platelet Count 227 10^3/uL (150-450); Red Blood Count 3.63 10^6/uL (4.20-5.40); Red Cell Distribution Width 13.5 % (11.0-15.0); White Blood Count 6.7 10^3/uL (4.0-11.0)
[2023-10-01 10:26] LABS: Albumin Level 3.1 g/dL (3.4-5.0); Anion Gap 8.4; Calcium 8.9 mg/dL (8.5-10.1); Carbon Dioxide 30.3 mmol/L (21.0-32.0); Chloride 102 mmol/L (98-107); Estimated GFR (African America 25 (>=60); Estimated GFR (Non-African Ame 21 (>=60); Glucose 127 mg/dL (74-106); Magnesium 2.2 mg/dL (1.8-2.4); Phosphorus 3.9 mg/dL (2.6-4.7); Potassium 3.7 mmol/L (3.5-5.1); Sodium 137 mmol/L (136-145); Uric Acid 6.3 mg/dL (2.6-6.0)
[2023-10-03 12:08] LABS: PTH, Intact 93 pg/mL (15-65)
== END 2023-10-01 01:21 | disposition home or self-care (01) ==
LOC: LAB 01:20
PROVIDERS: PCP Family Medicine
DX: I12.9 Hypertensive chronic kidney disease with stage 1 through stage 4 chronic kidney disease, or unspecified chronic kidney disease (principal); N18.4 Chronic kidney disease, stage 4 (severe); N25.0 Renal osteodystrophy; E87.8 Other disorders of electrolyte and fluid balance, not elsewhere classified; E87.70 Fluid overload, unspecified
CPT/HCPCS: 36415; 80069; 83735; 83970; 84550; 85025

== ENCOUNTER 2023-11-12 02:18 | Outpatient (REF) | payer MEDICARE, MEDICAID, SELFPAY ==
--- OUTSIDE RECORDS SUMMARY | 2023-11-12 02:26 | XMS_ITS | CCD ---
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 Model Maker [employer] Name Role Phone Justino Dhaliwal Primary Care Provider CHELE LAGOS Admitting Unavailable CHELE LAGOS Attending Unavailable YAZMIN, JUSTINO Boone Primary Care Unavailable PENNY DOWNEY Consulting Unavailable CONSTANTIN ESCOBEDO Consulting Unavailable YazminJustino felix Primary Care Provider [phone] Carlos Carlin Admitting Unavailable Carlos Carlin Attending Unavailable YAZMIN, JUSTINO HUNG Primary Care Unavailab le YAZMIN, JUSTINO HUNG Consulting Unavailab le Yazmin DO, Justino Boone Primary Care Provider DAVID, DR ALAN Grayson Attending Unavailable HERNANDEZ, DR ALAN Grayson Consulting Unavailable HERNANDEZ, DR ALAN Grayson Admitting Unavailable YAZMIN, JUSTINO Boone Referring Unavailable YAZMIN, JUSTINO Boone Primary Care Unavailable YAZMIN, JUSTINO Boone Referring Unavailable YAZMIN, JUSTINO Boone Primary Care Unavailable RATNASAMY, MANUEL Referring Unavailable YAZMIN, JUSTINO Boone Primary Care Unavailable YAZMIN, JUSTINO Boone Primary Care Unavailable YAZMIN, JUSTINO Boone Referring Unavailable YAZMIN, JUSTINO Boone Primary Care Unavailable RATNASAMY, MANUEL Referring Unavailable YAZMIN, JUSTINO Boone Primary Care Unavailable RATNASAMY, MANUEL Referring Unavailable RATNASAMY, MANUEL Referring Unavailable YAZMIN, JUSTINO Boone Primary Care Unavailable IBOAYA, BENAHILI U Referring Unavailable YAZMIN, JUSTINO Boone Primary Care Unavailable YAZMIN, JUSTINO Boone Referring Unavailable YAZMIN, JUSTINO Boone Primary Care Unavailable YAZMIN, JUSTINO Boone Referring Unavailable YAZMIN, JUSTINO Boone Primary Care Unavailable Brina Cordero MD Destiny Irwin Emergency Provider MD Brina Cordero Primary Care Provider [phone] MD Riky Bundy Admit Provider MD Riky Bundy Attending Provider Brina Cordero Primary Care Unavailable Riky Bundy Admitting Unavailab Kishan Downs Attending Unavailable Justino Martinez Consulting Unavailable Unavailable Primary Care Provider UnavailHarsh Ireland Attending Unavailable Harsh CLAYTON Attending Unavailable Harsh CLAYTON Referring Unavailable Justino Martinez Attending Unavailable Justino Martinez Referring Unavailable BRINA CORDERO E Primary Care Unavailable CORDERO, BRINA E Primary Care Unavailable CORDERO, BRINA E Primary Care Unavailable CORDERO, BRINA E Primary Care Unavailable CORDERO, BRINA E Primary Care Unavailable GARLAND, RICCO Attending Unavailable GARLAND, RICCO Attending Unavailable GARLAND, RICCO Admitting Unavailable BRINA CORDERO E Primary Care Unavailable GARLAND, RICCO Referring Unavailable GARLAND, RICCO Attending Unavailable STEFANIE OCAMPO Referring Unavailable CORDERO BRINA E Primary Care Unavailable Allergies Allergy Classification Reported Allergen(s) Allergy Type Date of Onset Reaction(s) Facility (1 source) No Known Medication Allergies; Translations: [No Known Medication Allergies] Propensity to adverse reactions to drug (disorder) [facility] Repository Medications Current Medications Medication Drug [...] oral tablet (20 sources) Opioid Agonist Start: 10-15-2023 HYDROcodone-Ac etaminophen 10-325 MG 1 tablet six times per day Orally prn for 30 days Sep, Active Start: 08-31-2023 take 1 tablet by hailey th every six hours Hydrocodone-Acetaminophen ([place]) 10-325 mg Tablet Active 1 TAB PO [...] 1 tablet by mouth at dinner Vitamins A,C,Q-Rmkk-Chqyol (Preservision Areds) 2,148 mcg-113 mg-45 mg-17.4mg Tablet [...] ARE DS 2 - as directed Orally 950-57-89-1MG Active calcitriol 0.40898 mg oral capsule (20 sources) Vitamin D3 Analog Start: take 0.25 ug by mouth once daily Calcitriol Active 0.25 MCG PO Daily August 31, 2023 12:00am take 1 capsule by [facility] three times weekly Calcitriol 0.25 MCG 1 capsule Orally Thr ee times a Week Active take 1 capsule by [facility] three times weekly Calcitriol 0.25 MCG 1 capsule Orally Thr ee times a Week Active Comment on above: Take 0.25 mcg by hailey th. calcium acetate 667 mg oral tablet (16 sources) Start: 08-02-20 take 1 tablet by mouth twice daily at mealtime Calcium Acetate 667 MG 1 tablet Orally twice daily with meals for 30 days Jul, Active ciprofloxacin 250 mg oral tablet (8 sources) Quinolone Antimicrobial take 1 tablet by mouth every twenty-four hours Ciprofloxacin HCl 250 MG 1 tablet Orally daily for 10 days Active End: 05-30-2020 take 1 tablet by mouth twice daily ciprofloxacin (CIPRO) 500 MG tablet Take 500 mg by mouth 2 times daily 0 05/30/2020 Discontinued (LIST CLEANUP) cyclobenzaprine hydrochloride 10 mg oral tablet (1 source) Muscle Relaxant Start: 05-10-2020 take 10 mg by mouth three times daily as needed for muscle spasms 10 mg, Oral, 3 TIMES DAILY PRN, Muscle spasms, Starting Wed05/10/20 at 1557 desoximetasone 2.5 mg/ml topical cream (20 sources) Corticosteroid desoximetasone (TOPICORT) 0.25 % cream Apply topically 2 times daily Apply topically 2 times daily. 0 Active docusate sodium 100 mg oral capsule (20 sources) Start: 08-31-2023 take 100 mg by mouth twice daily [...] mg by mouth. High Potency Multivitamin - (13 sources) take 1 tablet by mouth once daily High Potency Multivitamin - 1 tablet Orally Once a day Active hydrALAZINE hydrochloride 25 mg oral tablet (20 sources) Arteriolar Vasodilator Start: 08-31-2023 take 25 mg by mouth twice daily Hydralazine Active 25 MG PO Twice daily August 31, 2023 12:00am take 1 tablet by hailey th every eight hours hydrALAZINE HCl 25 MG [...] Orally 3 times daily for 30 days Sep, Active Start: 07-05-2023 take 1-2 tablets by [...] Daily August 31, 2023 12:00am Nutritional Supplements (BILL) PACK (20 sources) take 1 dose by mouth once Nutritional Supplements (BILL) PACK Take 1 each by mouth once 0 Active 2 ml ondansetron 2 mg/ml injection (3 sources) Serotonin-3 Receptor Antagonist Start: 05-10-20 4 mg, Intravenous, EVERY 6 HOURS PRN, Nausea, Starting Wed05/10/20 at 1557 Start: 03-23-2020 End: 03-23-2020 ondansetron (ZOFRAN) injecti on 4 mg Start: 02-09-2020 End: 02-09-2020 ondansetron (ZOFRAN) injecti on 4 mg piperacillin-tazobactam (ZOSYN) 3.375 g in dextrose 5 % 50 mL IVPB extended infusion (mini-bag) (1 source) Start: 04-03-2020 piperacillin-tazobactam (ZOSYN) 3.375 g in dextrose 5 % 50 mL IVPB extended infusion (mini-bag) polyethylene glycol 3350 51059 mg powder for oral solution (20 sources) Osmotic Laxative Start: 04-02-2020 Polyethylene Glycol 3350 (Miralax) 17 gram Powder In Packet Active 17 GM PO Daily August 31, 2023 12:00am Comment on above: Take 17 g by mouth. potassium chloride 20 meq extended release oral tablet (20 sources) Start: 08-31-2023 take 20 mEq by [...] by mouth. Promethazine (1 source) Phenothiazine Start: promethazine (PHENERGAN) tablet 12.5 mg QUEtiapine 25 mg oral tablet (20 sources) Atypical Antipsychotic take 1 tablet by mouth twice daily QUEtiapine (SEROQUEL) 25 MG tablet Take 25 mg by mouth 2 times daily 0 Active sulfamethoxazole 800 mg / trimethoprim 160 mg oral tablet (11 sources) Dihydrofolate Reductase Inhibitor Antibacterial, Sulfonamide Antimicrobial Start: 023 take 1 tablet by mouth twice daily Sulfamethoxazole-Tr imethoprim (Bactrim Ds) 800-160 mg Tablet Active 1 TAB PO Twice daily August 31, 2023 12:00am verapamil hydrochloride 180 mg extended release oral tablet (20 sources) Calcium Channel Ellie Start: take 180 mg by mouth at bedtime [...] 2100, Last dose on Wed05/11/20 at 0500 diclofenac sodium 0.01 mg/mg topical gel (7 sources) Nonsteroidal Anti-inflammatory Drug Start: 09-04-2023 diclofenac (VOLTA FROY) 1 % topical gel Voltaren 1 % [...] Care, After every IV line use, Starting Wed04/02/20 at 2353 Start: 04-02-2020 End: 04-02-2020 0.9 [...] unspecified] Onset: 3 09-01-2023 Episodic Anxiety disorders (20 sources) Generalized anxiety disorder; Translations: [Generalized anxiety disorder] Onset: 3 Chronic Calculus of urinary tract (16 sources) Staghorn calculus; Translations: [Calculus of kidney] Onset: 3 08-31-2023 Episodic Chronic kidney disease (20 sources) Chronic kidney disease stage 4; Translations: [Chronic kidney disease, stage 4 (severe)] Onset: 1 Chronic Chronic ulcer of skin (20 sources) Pressure ulcer of heel; Translations: [Pressure ulcer stage 3] Onset: 0 06-13-2020 Chronic Deficiency and other anemia (17 sources) Anemia of chronic disease; Translations: [Anemia [...] intertrochanteric fracture of left femur, initial encounter ([facility])] Episodic Genitourinary symptoms and ill-defined conditions (12 sources) Urinary tract obstruction; Translations: [Obstructive and reflux uropathy, unspecified] Onset: 3 09-07-2023 Episodic Osteoarthritis (3 sources) Arthritis; Translations: [Unspecified osteoarthritis, unspecified site] Onset: 3 09-07-2023 Chronic Other connective tissue disease (1 source) History of total hip arthroplasty; Translations: [Status post total replacement of left hip] Chronic Other connective tissue disease (18 sources) Pain in left foot; Translations: [Pain in left foot] Episodic Other connective tissue disease (17 sources) Pain in limb; Translations: [Pain in left leg] Episodic Other connective tissue disease (1 source) Pain in left leg; Translations: [Leg pain, anterior, left] Episodic Other diseases of kidney and ureters (1 source) Hydronephrosis with renal and ureteral calculous obstruction; Translations: [Hydronephrosis] 09-08-2023 Episodic Other ear and sense organ disorders (3 sources) Hearing loss; Translations: [Unspecified hearing loss, unspecified ear] Chronic Other ear and sense organ disorders (1 source) Impacted cerumen, bilateral Episodic Other gastrointestinal disorders (18 sources) Slow transit constipation; Translations: [Slow transit constipation] Episodic Other gastrointestinal disorders (3 sources) Constipation; Translations: [Constipation, unspecified] Onset: 3 09-01-2023 Episodic Other gastrointestinal disorders (3 sources) Constipation, unspecified; Translations: [Constipation, unspecified] Onset: 3 08-31-2023 Episodic Other nervous system disorders (6 sources) Metabolic encephalopathy; Translations: [Metabolic encephalopathy] 09-01-2023 [...] Retinal detachments; defects; vascular occlusion; and retinopathy (18 sources) Degenerative disorder of macula ; Translations: [...] Test Name Value Interpretation Reference Range Facility CNOVon 10-27-2023 CNOV Office Visit (UROSMN ) OVIDIOJESÚS ([id number]) 1935 F Date Time Provider Department 10/27/23 11:30 AM RICCO GARLAND During your visit today, we recorded the following information about you: Christa Flanagan RN 10/27/2023 1:12 PM Signed UNIVERSAL PROTOCOL / SAFETY CHECKLIST Procedure to be Performed: stent extraction Sign In: A Moment of CARE was completed. Personnel directly involved with the procedure wore the appropriate PPE (Personal Protective Equipment). No special equipment needed. Patient/Surrogate Stated/Verified: PATIENT VERIFIED(optional for EMERGENT procedures): Patient name, Date of , Relevant allergies, and The intended procedure Time Out Communication: Intended patient and procedure match the source documents. Consent documented and matches the intended procedure. Relevant labs, photos, and/or imaging studies have been reviewed. Correct side/site marked and visible. Medications required for procedure verified. Fire risk assessed and interventions discussed. No implant(s) inserted. Sign Out: SIGN OUT (optional for EMERGENT procedures): No specimen collected. All instruments, equipment, possible retained foreign bodies accounted for. Post-procedure follow-up management communicated and Plan of Care Visit completed when applicable. MARYJANE Soni Dannetta M, RN 10/27/2023 12:17 PM Addendum Actual procedure/procedure scheduled: Yes Performing provider/scheduled provider: Yes Patient was roomed in: Q9- 06 Physician Extender offered:Patient accepts, visit chaperoned by daughter Patient arrived in the room at: 1120 Patient ready for procedure: 1130 The procedure started at ( Time Only): 1154 The procedure ended at: 1200 Was the procedure delayed: Yes: Provider late: Provider with other patient on Q9 The patient left the procedure room at: 1217 Christa Flanagan RN PRE PROCEDURE ASSESSMENT- Cysto Procedure Indication: Cystoscopy and Stent Extraction Latex Allergy: No Allergies reviewed and updated. Yes Pre-Procedure Vital Signs: BP: 216/97 Pulse: 98 Heart valve replacement: No Joint replacement: Yes Back Office UA otained: not applicable PROCEDURE PREP-Cysto Patient ID with two(2)identifiers verified by: Christa Flanagan RN Pre-Procedure Antibiotics: None taken at home nor prior to procedure Patient Prep: Betadine Scrub to perineum and placement of Sterile Drape. COMPLETED Anesthetic Given:10 cc 2% Lidocaine jelly Christa Flanagan RN UNIVERSAL PROTOCOL / SAFETY CHECKLIST Procedure to be performed: Cystoscopy and Stent Extraction Sign in Communication: Completed Time Out: Team Confirms the Correct Patient, Correct Procedure, Correct Site and Site Marking, Correct Position (if applicable). Sign Out Discussion: Completed Christa Flanagan RN POST PROCEDURE NURSE ASSESSMENT Present along with physician during procedure exam. Christa Flanagan RN Instruction sheet given and reviewed and patient verbalizes understanding: yes Current pain intensity is 0 on a 0-10 pain scale. Christa Flanagan RN AMBULATORY PATIENT EDUCATION THE FOLLOWING WAS EVALUATED Motivation To Learn: Eager Interested Family/Significant Other Support: None - Unavailable/disinteres tavia Cognitive Ability: Alert/Oriented Method of Instruction: Written instruction - handouts Verbal instruction The Following Influencing Factors Were Barriers To This Education Session: None The Following Physical Limitations Were Barriers To This Education Session: None Instruction Provided To: Patient and family member Accountant Supervisor Present: not applicable Discipline: Nursing Learning Topic: SURVIVAL SKILLS: Symptom Management Patient Evaluation: Verbalizes understanding: Yes Supplemental Material Given: Written Material Instructed By Christa Flanagan RN In Department Urology . One suture removed by from left side of back with suture removal kit. Dry bandaid applied to site. Ricco Garland MD 10/27/2023 1:12 PM Signed CYSTOSCOPY PROCEDURE M.DTc'S HOPS NOTE Pertinent History and Physical Exam reviewed and is unchanged. Primary Diagnosis: Nephrolithiasis Procedure: Stent Extraction Informed Consent Discussed: Yes. Risks, benefits, alternatives and personnel discussed with patient who consents to proceed. Audible Time-Out: Yes Details of Procedure: TECHNIQUE: The procedure was fully explained to the patient, risks were reviewed. The patient was placed in the supine position. The genitalia were prepped with antiseptic soap per protocol, and the urethra was anesthetized with viscous 2% lidocaine. The flexible cystoscope was introduced into the urethra and advanced under direct vision with findings as outlined below. At the conclusion of the procedure, the cystoscope was withdrawn. Anesthetics given: 10 cc 2% Lidocaine-Urethral Operative Finding (more content not included)... Normal [facility] Basic metabolic 2000 panelon 10-21-2023 Anion gap [Moles/Vol] 10 mmol/L Normal 9-18 [facility] Comment on above: Order Comment: Speci men Type: BLOOD SPECIMENOrdering Facility: [facility] Address: [address] [place] [address] Performed By: #### 2 4321-2 ####[facility] LABCLIA [id number] [place] [address] [place] Calcium [Mass/Vol] 8.7 mg/dL Normal 8.5-10.2 [facility] Comment on above: Order Comment: Speci men Type: BLOOD SPECIMENOrdering Facility: [facility] Address: [address] [place] [address] Performed By: #### 2 4321-2 ####[facility] LABCLIA [id number] [place] [address] [place] Chloride [Moles/Vol] 105 mmol/L Normal 97-105 [facility] Comment on above: Order Comment: Speci men Type: BLOOD SPECIMENOrdering Facility: [facility] Address: [address] [place] [address] Performed By: #### 2 4321-2 ####[facility] LABCLIA [id number] [place] [address] [place] CO2 [Moles/Vol] 27 mmol/L Normal 22-30 [facility] Comment on above: Order Comment: Speci men Type: BLOOD SPECIMENOrdering Facility: [facility] Address: [address] [place] [address] Performed By: #### 2 4321-2 ####[facility] LABCLIA [id number] [place] [address] [place] Creatinine [Mass/Vol] 2.04 mg/dL High 0.58-0.96 [facility] Comment on above: Order Comment: Speci men Type: BLOOD SPECIMENOrdering Facility: [facility] Address: [address] [place] [address] Performed By: #### 2 4321-2 ####[facility] LABCLIA [id number] [place] [address] [place] Creatinine and Glomerular filtration rate.predicted panel (S/P/Bld) 23 mL/min/1.73m??? Low >=60 [facility] Comment on above: Order Comment: Speci men Type: BLOOD SPECIMENOrdering Facility: [facility] Address: [address] [place] [address] Result Comment: Melissa mated Glomerular Filtration Rate [...] reflect actual GFR. Performed By: #### 2 4321-2 ####[facility] LABIA [id number] [place] [address] [place] Glucose [Mass/Vol] 180 mg/dL High 74-99 [facility] Comment on above: Order Comment: Speci men Type: BLOOD SPECIMENOrdering Facility: [facility] Address: [address] [place] [address] Result Comment: The [place] [employer] (ADA) provides guidance for cutoff [...] Standards of Medical Care in Diabetes 2016, [place] [employer]. Diabetes Care. 2016.39(Suppl 1). Performed By: #### 2 4321-2 ####[facility] LABCLIA [id number] [place] [address] [place] Potassium [Moles/Vol] 3.5 mmol/L Low 3.7-5.1 [facility] Comment on above: Order Comment: Speci men Type: BLOOD SPECIMENOrdering Facility: [facility] Address: [address] [place] [address] Performed By: #### 2 4321-2 ####[facility] LABIA [id number] [place] [address] [place] Sodium [Moles/Vol] 142 mmol/L Normal 136-144 [facility] Comment on above: Order Comment: Speci men Type: BLOOD SPECIMENOrdering Facility: [facility] Address: [address] [place] [address] Performed By: #### 2 4321-2 ####[facility] LABCLIA [id number] [place] [id number] [place] Urea nitrogen [Mass/Vol] 26 mg/dL High 7-21 [facility] Comment on above: Order Comment: Speci men Type: BLOOD SPECIMENOrdering Facility: [facility] Address: [address] [place] [address] Performed By: #### 2 4321-2 ####[facility] LABIA [id number] [place] [id number] [place] CBC panel Auto (Bld)on 10-21 Erythrocyte distribution width (RBC) [Ratio] 13.1 % Normal 11.5-15.0 [facility] Comment on above: Order Comment: Speci men Type: BLOOD SPECIMENOrdering Facility: [facility] Address: [address] [place] [address] Performed By: #### 5 8410-2 ####[facility] LABIA [id number] [address] [place] Hematocrit (Bld) [Volume fraction] 35.1 % Low 36.0-46.0 [facility] Comment on above: Order Comment: Speci men Type: BLOOD SPECIMENOrdering Facility: [facility] Address: [address] [place] [address] Performed By: #### 5 8410-2 ####[facility] LABIA [id number] [address] [place] Hemoglobin (Bld) [Mass/Vol] 11.5 g/dL Normal 11.5-15.5 [facility] Comment on above: Order Comment: Speci men Type: BLOOD SPECIMENOrdering Facility: [facility] Address: [address] [place] [address] Performed By: #### 5 8410-2 ####[facility] LABIA [id number] [place] [address] [place] MCH (RBC) [Entitic mass] 31.6 pg Normal 26.0-34.0 [facility] Comment on above: Order Comment: Speci men Type: BLOOD SPECIMENOrdering Facility: [facility] Address: [address] [place] [address] Performed By: #### 5 8410-2 ####[facility] LABCLIA [id number] [place] [address] [place] MCHC (RBC) [Mass/Vol] 32.8 g/dL Normal 30.5-36.0 [facility] Comment on above: Order Comment: Speci men Type: BLOOD SPECIMENOrdering Facility: [facility] Address: [address] [place] [address] Performed By: #### 5 8410-2 ####[facility] LABIA [id number] [place] [address] [place] MCV (RBC) [Entitic vol] 96.4 fL Normal 80.0-100.0 [facility] Comment on above: Order Comment: Speci men Type: BLOOD SPECIMENOrdering Facility: [facility] Address: [address] [place] [address] Performed By: #### 5 8410-2 ####[facility] [id number] [place] [address] [place] Nucleated RBC (Bld) [#/Vol] 10*3/uL Normal <0.01 [facility] Comment on above: Order Comment: Speci men Type: BLOOD SPECIMENOrdering Facility: [facility] Address: [address] [place] [address] Performed By: #### 5 8410-2 ####[facility] [id number] [place] [address] [place] Platelet mean volume (Bld) [Entitic vol] 10.7 fL Normal 9.0-12.7 [facility] Comment on above: Order Comment: Speci men Type: BLOOD SPECIMENOrdering Facility: [facility] Address: [address] [place] [address] Performed By: #### 5 8410-2 ####[facility] LABIA [id number] [place] [address] [place] Platelets (Bld) [#/Vol] 158 10*3/uL Normal 150-400 [facility] Comment on above: Order Comment: Speci men Type: BLOOD SPECIMENOrdering Facility: [facility] Address: [address] [place] [address] Performed By: #### 5 8410-2 ####[facility] LABCLIA [id number] [place] [address] [place] RBC (Bld) [#/Vol] 3.64 10*6/uL Low 3.90-5.20 [facility] Comment on above: Order Comment: Speci men Type: BLOOD SPECIMENOrdering Facility: [facility] Address: [address] [place] [address] Performed By: #### 5 8410-2 ####[facility] LABCLIA [id number] [place] [address] [place] WBC (Bld) [#/Vol] 8.61 10*3/uL Normal 3.70-11.00 [facility] Comment on above: Order Comment: Speci men Type: BLOOD SPECIMENOrdering Facility: [facility] Address: [address] [place] [address] Performed By: #### 5 8410-2 ####[facility] LABCLIA [id number] [address] [place] THERAPY NTon 10-21-2023 THERAPY NT HNO ID: [id number] Author: MERY KAUR OT/L Service: Occupational Therapy Author Type: Occupational Therapist Type: Therapy (PT/OT/Speech/Resp) Filed: 10/21/2023 10:57 Note Text: Occupational Therapy Evaluation Summary SERVICE DATE: 10/21/2023 SERVICE TIME: 8135 to 100 ROOM: [place] [address] OT 6 Clicks Score: 18 DISCHARGE RECOMMENDATIONS Subacute/SNF Recommended Discharge Disposition Comments: Return to [facility] Anticipated Discharge Needs: Physical Assist at Home Physical Assist at Home for: Transfers, Ambulation, Cleaning, Stairs, Self Care, Shopping, Transportation, Safety, Meals, Laundry Recommended Discharge Equipment: No equipment needs anticipated ASSESSMENT Response to Therapy Interventions: Good Participation in Activities, Notable Progression with Functional Activities/Skills, On-Track to Achieve Discharge Goals, Pain, Requires Additional Time to Complete Activities, Requires Encouragement to Complete Activities Pt demo no signs of delirium this date and demo sig improvement cognitively. Pt able to complete steps EOB > chair with min A and NEEDLE STRAIGHTENER this date. Pt completed grooming tasks seated EOB with setup. PRECAUTIONS Fall Risk, Abdominal None CURRENT HOSPITAL COURSE 3 Days Post-Op s/p Left PCNL 10/[address] Garland Relevant Past Medical History: HTN, GERARDO, anemia of chronic disease, CKD and left staghorn calculus, recurrent UTIs, pre-admitted for antibiotics prior to PCNL HOME LIVING Patient Lives With: Facility Care Assistance Available: 24-Hour Entry To Home: No Stairs Number Of Stairs To Bed/Bath: 0 Laundry: Daughter completes Equipment Owned: Wheelchair- Manual, Walker- Wheeled PRIOR FUNCTIONAL LEVEL Within Functional Limits, Required Assistance Assistance Required With: Transfers, Ambulation, Cleaning, Meals, Laundry, Safety, Stairs, Shopping, Transportation, Self Care Pt reports assist with iADLs/LB ADLs, SPT with WW > w/c with assist, (-) driving, from [place] and was participating in therapy SECOND OFFICER. Baseline Cognition: Oriented to self, Oriented to place, Oriented to time, Oriented to situation SUBJECTIVE Pt agreeable to therapy this date COGNITION Responsiveness: Alert, Awake Follows Commands: 2-step Commands, Cueing Needed Cueing to Follow Commands: Minimum Cog 6 Start of Session Total Points (Max Score = 24): 24 (10/21/23) Cog 6 End of Session Total Points (Max Score = 24): 24 (10/21/23) 4AT Score: (!) 6 (10/21/23) Name of LIP Notified of New Positive 4AT Score: Team aware (10/21/23) Delirium Positive/Negative: Positive (10/21/23) THERAPY DIAGNOSIS Reduced mobility-other, Decreased activities of daily living (ADL), General symptoms and signs-other TREATMENT INTERVENTIONS Evaluation, Self Assisted Management (61294) Timed Code Treatment (minutes): 13 Skilled Treatment Time (minutes): 28 TRAINING AND EDUCATION PROVIDED Activity Adaptation/Recruiting Specialist y Strategies, Altering Thinking Patterns, Adaptive Equipment/DME, Assistive Device Use, Bed Mobility, Benefits of In-Hospital Mobility, Cognitive Skills, Cognitive Stimulation Activities, Command Following, Delirium Reduction Techniques, Discharge Planning, Energy Conservation, Environmental Modification, Functional Mobility Involving ADLs, Grooming Tasks, Home Set-up/Modifications, IADLs/Home Management, Identification of Systems of Support, Insight into Deficits, Life Roles/Routines/Habits, Low Vision Strategies, Lower Extremity Bathing, Lower Extremity Dressing, Memory/Attention, Orientation, Precautions/Restrictio ns, Role of Occupational Therapy, Sensory Integration, Sitting Balance to Improve Waller with ADLs/Self-Care, Standing Balance to Improve Waller with ADLs/Self-Care, Transfer - Sit to Stand, Transfer - Bed to Chair, Upper Extremity Bathing THERAPEUTIC SKILLS USED Activity Dosing, Assessment of Tolerance Including Vitals Response to Activity, Bilateral UE Integration, Cues for Sequencing/Proper Technique for Activity, Cuing Tactile, Cuing Verbal, Cuing Visual, Facilitation of Joint Range of Motion, Management of Critical Lines, Tubes and/or Drains, Movement Facilitation, Muscle Activation Facilitation, Physical Assist, Teach-Back for Education, Therapeutic Use of Self FUNCTIONAL STATUS Activities of Daily Living Assist Level Additional Information Feeding Set Up Grooming Set Up Bathing Upper Body Contact Guard Assistance Bathing Lower Body Maximal Assistance Dressing Upper Body Contact Guard Assistance Dressing Lower Body Maximal Assistance Toileting Minimal Assistance Mobility Assist Level Additional Information Bed Mobility Supine To Sit: Contact Guard Assistance Sit to Stand Minimal Assistance Stand to Sit Contact Guard Assistance Bed to Chair Minimal Assistance Bed To Chair Transfer Type: Stepping Bed To Chair Transfer Equipment: (NEEDLE STRAIGHTENER) Toilet/Commode Shower Functional Mobility GOALS Patient will demonstrate understanding (more content not included)... Normal [facility] Basic metabolic 2000 panelon 10-20-2023 Anion gap [Moles/Vol] 14 mmol/L Normal 9-18 [facility] Comment on above: Order Comment: Speci men Type: BLOOD SPECIMENOrdering Facility: [facility] Address: [address] [place] [address] Performed By: #### 2 4321-2 ####[facility] LABCLIA [id number] [address] [address] [place] Calcium [Mass/Vol] 9.2 mg/dL Normal 8.5-10.2 [facility] Comment on above: Order Comment: Speci men Type: BLOOD SPECIMENOrdering Facility: [facility] Address: [address] [place] [address] Performed By: #### 2 4321-2 ####[facility] LABCLIA [id number] [place] [address] [place] Chloride [Moles/Vol] 103 mmol/L Normal 97-105 [facility] Comment on above: Order Comment: Speci men Type: BLOOD SPECIMENOrdering Facility: [facility] Address: [address] [place] [address] Performed By: #### 2 4321-2 ####[facility] LABCLIA [id number] [place] [address] [place] CO2 [Moles/Vol] 25 mmol/L Normal 22-30 [facility] Comment on above: Order Comment: Speci men Type: BLOOD SPECIMENOrdering Facility: [facility] Address: [address] [place] [address] Performed By: #### 2 4321-2 ####[facility] LABCLIA [id number] [place] [address] [place] Creatinine [Mass/Vol] 1.90 mg/dL High 0.58-0.96 [facility] Comment on above: Order Comment: Speci men Type: BLOOD SPECIMENOrdering Facility: [facility] Address: [address] [place] [address] Performed By: #### 2 4321-2 ####[facility] LABIA [id number] [address] [place] Creatinine and Glomerular filtration rate.predicted panel (S/P/Bld) 25 mL/min/1.73m??? Low >=60 [facility] Comment on above: Order Comment: Speci men Type: BLOOD SPECIMENOrdering Facility: [facility] Address: [address] [place] [address] Result Comment: Melissa mated Glomerular Filtration Rate [...] reflect actual GFR. Performed By: #### 2 4321-2 ####[facility] LABIA [id number] [place] [address] [place] Glucose [Mass/Vol] 92 mg/dL Normal 74-99 [facility] Comment on above: Order Comment: Speci men Type: BLOOD SPECIMENOrdering Facility: [facility] Address: [address] [place] [address] Result Comment: The [place] [employer] (ADA) provides guidance for cutoff [...] Standards of Medical Care in Diabetes 2016, [place] [employer]. Diabetes Care. 2016.39(Suppl 1). Performed By: #### 2 4321-2 ####[facility] [id number] [place] [address] [place] Potassium [Moles/Vol] Normal [facility] Comment on above: Order Comment: Lalo mclaughlin Type: BLOOD SPECIMENOrdering Facility: [facility] Address: [address] [place] [address] Result Comment: Unab le to assay due to interference from hemolysis. Suggest reorder as clinically indicated. Performed By: #### 2 4321-2 ####[facility] [id number] [place] [address] [place] Sodium [Moles/Vol] 142 mmol/L Normal 136-144 [facility] Comment on above: Order Comment: Lalo mclaughlin Type: BLOOD SPECIMENOrdering Facility: [facility] Address: [address] [place] [address] Performed By: #### 2 4321-2 ####[facility] LABCLIA [id number] [place] [address] [place] Urea nitrogen [Mass/Vol] 21 mg/dL Normal 7-21 [facility] Comment on above: Order Comment: Speci men Type: BLOOD SPECIMENOrdering Facility: [facility] Address: [address] [place] [address] Performed By: #### 2 4321-2 ####[facility] LABCLIA [id number] [address] OF [facility] CNDSon 10-20-2023 CNDS HNO ID: [id number] Author: RICCO GARLAND MD Service: Urology Author Type: Physician Type: Discharge Summary Filed: 10/24/2023 20:32 Note Text: [place] [address] or ([phone] [facility] C O N F I D E N T I A L I N F O R M A T I O N STANDARD [facility] DOCUMENT DISCHARGE SUMMARY Patient Name: Jesús Nolan Patient Admission Date: 10/17/2023 Discharge Date: 10/21/23 Attending Physician: Ricco Garland MD Principal Diagnosis: Nephrolithiasis Secondary Diagnoses: None Operations During Hospitalization: Procedure(s) (LRB): PERC NEPHROLITHOTOMY LITHOTRIPSY,STONE EXTRACTION,ANTEGRADE URETEROSCOPY,STENT PLACEMENT WHEN PERFORMED INCD IMAGING UP TO 2cm (Left) Procedures Performed While Hospitalized: Intubation Reason for Hospitalization: 88 year old female with HTN, GERARDO, anemia of chronic disease, CKD and left staghorn calculus, recurrent UTIs. Hospital Course: Jesús Nolan underwent Procedure(s) (LRB): PERC NEPHROLITHOTOMY LITHOTRIPSY,STONE EXTRACTION,ANTEGRADE URETEROSCOPY,STENT PLACEMENT WHEN PERFORMED INCD IMAGING UP TO 2cm (Left) on 10/18. Subsequently SU[employer] is required. Please contact your traffic safety administrator to configure this SmartLink. was transferred to a regular nursing unit. Pain was initially controlled with intravenous/oral analgesia, Diet was slowly advanced as tolerated , Activity level was gradually increased, On post-operative day 2 she was afebrile for approximately 24 hours, ambulating without difficulty, tolerating diet, and pain was adequately controlled with oral medication. The patient was discharged to her halfway with instructions to return for follow up in clinic . The hernandez catheter was removed. Patient Condition at Discharge: Improved Discharge Disposition: Home Information Provided to the Patient: Patient was given a copy of Discharge Instructions Discharge Medications: Medication List START taking these medications acetaminophen 500 mg tablet Commonly known as: TYLENOL EXTRA STRENGTH Take 2 tablets by mouth every 6 hours as needed for pain. tamsulosin 0.4 mg Commonly known as: FLOMAX Take 1 capsule by mouth once daily. 30 minutes after the same meal each day. CHANGE how you take these medications amoxicillin 250 mg capsule Commonly known as: AMOXIL Take 1 capsule by mouth two times a day for 14 days. What changed: when to take this CONTINUE taking these medications busPIRone 10 mg tablet Commonly known as: BUSPAR calcitriol 0.25 mcg capsule Commonly known as: ROCALTROL calcium acetate 667 mg tablet Commonly known as: CALPHRON diclofenac 1 % topical gel Commonly known as: VOLTAREN docusate sodium 100 mg capsule Commonly known as: COLACE estradiol 0.01 % (0.1 mg/gram) vaginal cream Commonly known as: ESTRACE Use 1 g vaginally one time a week. ferrous sulfate 325 mg (65 mg iron) tablet furosemide 20 mg tablet Commonly known as: LASIX HIGH POTENCY MULTIVITAMIN 400 mcg Generic drug: multivitamin with folic acid hydrALAZINE 25 mg tablet Commonly known as: APRESOLINE HYDROcodone-Acetaminop hen 10-325 mg per tablet Commonly known as: NORCO LORazepam 0.5 mg Commonly known as: ATIVAN melatonin 10 mg Odt polyethylene glycol 3350 17 gram packet pravastatin 10 mg tablet Commonly known as: PRAVACHOL verapamil SR 180 mg CR tablet Commonly known as: CALAN SR VITAMIN C 500 mg tablet Generic drug: ascorbic acid (vitamin C) ASK your doctor about these medications lactulose 10 gram/15 mL solution Where to Get Your Medications These medications were sent to e- [id number] [place] [address] - [address] [place] [address] - [phone] [place] [address] [address] [facility] [address] amoxicillin 250 mg capsule tamsulosin 0.4 mg You can get these medications from any pharmacy You don't need a prescription for these medications acetaminophen 500 mg tablet Future Appointments: No future appointments. Electronically SIGNED by Licensed Independent Practitioner: MD Ricco Wilcox MD, FACS Director, Surgical Stone Disease, [facility] baking factory worker, [facility] Pager [phone] 10/20/2023 Note: Due to patient confusion/combativenes s, we may need to hold discharge and revise this summary. Ricco Garland MD, FACS Director, Surgical Stone Disease, [facility] baking factory worker, [facility] Pager [phone] 10/20/2023 Normal [facility] CONSULTon 10-20-2023 CONSULT HNO ID: [id number] Author: FANTA MEDELLIN MD Service: Psychiatry Author Type: Physician Type: Consults Filed: 10/21/2023 18:06 Note Text: PSYCHIATRY CONSULT SERVICE MEDICAL STUDENT INITIAL CONSULT NOTE DAY TIME COVERAGE: Between 8AM to 5PM, page [phone] NIGHT AND WEEKEND COVERAGE: After hours (5PM to 8AM) and weekends, page [phone] SERVICE DATE: October 20, 2023 SERVICE TIME: 3:53 PM Attending Note Briefly, Ms. Nolan is a 88 year old female with a history of HTN, GERARDO, anemia of chronic disease, CKD and left staghorn calculus, recurrent UTIs, pre-admitted for antibiotics prior to PCNL now 2 Days Post-Op s/p Left PCNL 10/[address] Garland. 10/20 Psychiatry was consulted for management of post-operative delirium w agitation. By Dr. Garland Patient was alert, disoriented, unable to remember agitation. She denied active depression, no si, no hi, no v/a hallucinations. She denied acute pain. Overall, the constellation of symptoms that Ms Corrigan is exhibiting is consistent with post-operative delirium, hyperactive subtype, multifactorial likely c/b her recent surgery, metabolic derangements from her kidney disease, and pain. Of note, she is at an elevated risk for delirium to begin with given that she has had previous episodes of delirium per chart review and history (See HPI), is elderly, and just underwent surgery under anesthesia. It is important to rule out other medical causes such as UTI for her delirium, and per chart review and primary team, she is already on Unasyn and her urine culture on 10/18 resulted negative. Therefore, less likely that this delirium is secondary to ongoing UTI. Of note, patient does have poor vision and hearing which contribute to her confusion while in the hospital DIAGNOSIS: 1. Delirium hyperactive subtype mos likely metabolic, post operative 2. Chronic GERARDO, medically managed RECOMMENDATIONS: -Delirium protocol - 1:1 director of broadcast for safety - Use Haloperidol 2 mg PO or IM q 6 hours, PRN for severe agitation if behavioral interventions fail - Continue 9 mg Melatonin at bedtime for sleep - Continue home psychiatric medications- Buspar 10 mg daily for anxiety. - Please AVOID opioids, benzodiazepines, or anticholinergic medications. - Psych to follow up while inpatient Jose KUMAR [phone] ____ This note was generated by a MEDICAL STUDENT working under the supervision of an Attending Physician and is not authenticated until addended and cosigned by the Attending Physician at the beginning of this note. Consulting Service: Psychiatry, requested by Ricco Garland MD's team REASON FOR CONSULTATION: Delirium in the post-operative setting. Subjective IDENTIFYING INFO: Ms. Nolan is a 88 year old female from [place], [place]. History of Present Illness: She is a 88 year old female with PMH notable for HTN, GERARDO, anemia of chronic disease, CKD and left staghorn calculus, recurrent UTIs, pre-admitted for antibiotics prior to PCNL now 2 Days Post-Op s/p Left PCNL 10/[address] Garland. Psychiatry was consulted for management of post-operative delirium. Speaking with the nursing staff, they noted that starting around last night, Ms Corrigan became agitated, started swinging at her nursing staff, was visibly confused, tugging at IV lines, exhibited altered mental status, and not oriented to person, place, or time. This morning, she also had evidence of altered mental status and appeared agitated. She is not alert or oriented to place or time. Also refused to see the nursing staff or take her medications. When I went to her room, she was not there, but rather was with her daughter and son in law in the [facility] area. She was well-groomed and dressed in non-hospital clothing and sitting on a wheelchair. She was alert and oriented only to person. She was not aware of the date, her current location, why she is in the hospital, and is overall very confused and unable to appropriately answer questions. According to her daughter, this is not the first time Ms. Nolan has exhibited delirium and that she usually acts like this before a UTI/becoming septic and when she has surgery and is recovering from post-operative anesthesia effects. She has a past psychiatric diagnosis of GERARDO currently on Buspar 10 mg daily. No hx of suicide ideations, intent, or plan. At baseline, she is cooperative and pleasant; she lives in an assisted living center. Her daughter denies that Ms. Nolan has a any history of MCI or dementia. She is well supported by her grandchildren and children, who act as her main social support system. Does Patient Have Any Suicidal Ideations: No STRESSORS: - Recurrent history of UTIs with delirium - Current hospitalization - possible UTI ? (Work-up in process) COLLATERAL INFORMATION: I spoke with her daughter and son-in-law PSYCHIATRIC REVIEW OF SYMPTOMS: Depressio (more content not included)... Normal [facility] NURSING PROGon 10-20-2023 NURSING PROG HNO ID: [id number] Author: MIRIAN WALSH RN Service: Nursing Author Type: Registered Nurse Type: Nursing Progress Note Filed: 10/20/2023 05:29 Note Text: Patient became confused and aggressive overnight. Hitting staff members with call light, verbally aggressive. Able to hold off on Haldol until ~0515 when patient was trying to get out of bed and hitting staff again. Pulled out both IVs (had been wrapped in coban) and took Hernandez catheter apart then stated that we were hurting her. Haldol 5mg ordered and given in the left thigh. Mirian WHITESIDEN RN Normal [facility] THERAPY NTon 10-20-2023 THERAPY NT HNO ID: [id number] Author: [place] GATICA, PT Service: Physical Therapy Author Type: Physical Therapist Type: Therapy (PT/OT/Speech/Resp) Filed: 10/20/2023 12:00 Note Text: PHYSICAL THERAPY MISSED VISIT SERVICE DATE: 10/20/2023 SERVICE TIME: 0943 ROOM: [place] [address] Patient not seen due to: Spoke with CM who stated the patient is being discharged. SIGNATURE: Oh Gatica PT PATIENT NAME: Jesús Nolan DATE: October 20, 2023 TIME: 11:59 AM Normal [facility] THERAPY NT HNO ID: [id number] Author: MERY KAUR OT/L Service: Occupational Therapy Author Type: Occupational Therapist Type: Therapy (PT/OT/Speech/Resp) Filed: 10/20/2023 09:49 Note Text: OCCUPATIONAL THERAPY MISSED VISIT SERVICE DATE: 10/20/2023 SERVICE TIME: 0815 ROOM: [place] [address] Patient not seen due to Clinical Appropriateness. OT attempted eval this AM- pt combative, aggressive, and verbally abusive towards therapist. Pt now with active discharge order for this AM. OT will reattempt if necessary. SIGNATURE: Mery Kaur OT/L PATIENT NAME: Jesús Nolan DATE: October 20, 2023 TIME: 9:47 AM Normal [facility] Basic metabolic 2000 panelon 10-19-2023 Anion gap [Moles/Vol] 11 mmol/L Normal 9-18 [facility] Comment on above: Order Comment: Speci men Type: BLOOD SPECIMENOrdering Facility: [facility] Address: [address] [place], [place] [id number] Performed By: #### 2 4321-2 ####[facility] LABCLIA [id number] [place] [address] [place] Calcium [Mass/Vol] 8.6 mg/dL Normal 8.5-10.2 [facility] Comment on above: Order Comment: Speci men Type: BLOOD SPECIMENOrdering Facility: [facility] Address: [address] [place] [address] Performed By: #### 2 4321-2 ####[facility] LABCLIA [id number] [place] [address] [place] Chloride [Moles/Vol] 105 mmol/L Normal 97-105 [facility] Comment on above: Order Comment: Speci men Type: BLOOD SPECIMENOrdering Facility: [facility] Address: [address] [place] [address] Performed By: #### 2 4321-2 ####[facility] LABCLIA [id number] [place] [address] [place] CO2 [Moles/Vol] 26 mmol/L Normal 22-30 [facility] Comment on above: Order Comment: Speci men Type: BLOOD SPECIMENOrdering Facility: [facility] Address: [address] [place] [address] Performed By: #### 2 4321-2 ####[facility] LABCLIA [id number] [place] [address] [place] Creatinine [Mass/Vol] 2.02 mg/dL High 0.58-0.96 [facility] Comment on above: Order Comment: Speci men Type: BLOOD SPECIMENOrdering Facility: [facility] Address: [address] [place] [address] Performed By: #### 2 4321-2 ####[facility] LABCLIA [id number] [place] [address] [place] Creatinine and Glomerular filtration rate.predicted panel (S/P/Bld) 24 mL/min/1.73m??? Low >=60 [facility] Comment on above: Order Comment: Speci men Type: BLOOD SPECIMENOrdering Facility: [facility] Address: [address] [place] [address] Result Comment: Melissa mated Glomerular Filtration Rate [...] reflect actual GFR. Performed By: #### 2 4321-2 ####[facility] LABIA [id number] [place] [address] [place] Glucose [Mass/Vol] 131 mg/dL High 74-99 [facility] Comment on above: Order Comment: Lalo mclaughlin Type: BLOOD SPECIMENOrdering Facility: [facility] Address: [address] [place] [address] Result Comment: The [place] [employer] (ADA) provides guidance for cutoff [...] Standards of Medical Care in Diabetes 2016, [place] [employer]. Diabetes Care. 2016.39(Suppl 1). Performed By: #### 2 4321-2 ####[facility] LABIA [id number] [place] [address] [place] Potassium [Moles/Vol] 3.9 mmol/L Normal 3.7-5.1 [facility] Comment on above: Order Comment: Lalo mclaughlin Type: BLOOD SPECIMENOrdering Facility: [facility] Address: [address] [place] [address] Performed By: #### 2 4321-2 ####[facility] LABCLIA [id number] [place] [address] [place] Sodium [Moles/Vol] 142 mmol/L Normal 136-144 [facility] Comment on above: Order Comment: Speci men Type: BLOOD SPECIMENOrdering Facility: [facility] Address: [address] [place] [address] Performed By: #### 2 4321-2 ####[facility] LABCLIA [id number] [place] [address] [place] Urea nitrogen [Mass/Vol] 25 mg/dL High 7-21 [facility] Comment on above: Order Comment: Speci men Type: BLOOD SPECIMENOrdering Facility: [facility] Address: [address] [place] [address] Performed By: #### 2 4321-2 ####[facility] [facility] LABCLIA [id number] [place] [address] [place] CBC W Auto Differential pane l (Bld)on 10-19-2023 Basophils (Bld) [#/Vol] 10*3/uL Normal <0.11 C [facility] Comment on above: Order Comment: Speci men Type: BLOOD SPECIMENOrdering Facility: [facility] Address: [address] [place] [address] Performed By: #### 5 7021-8 ####[facility] LABCLIA [id number] [place] [address] [place] Basophils/100 WBC (Bld) 0.2 % Normal [facility] Comment on above: Order Comment: Speci men Type: BLOOD SPECIMENOrdering Facility: [facility] Address: [address] [place] [address] Performed By: #### 5 7021-8 ####[facility] LABCLIA [id number] [place] [address] [place] Differential cell count method Nom (Bld) Auto Normal [facility] Comment on above: Order Comment: Speci men Type: BLOOD SPECIMENOrdering Facility: [facility] Address: [address] [place] [address] Performed By: #### 5 7021-8 ####[facility] LABCLIA [id number] [place] [address] [place] Eosinophils (Bld) [#/Vol] 0.03 10*3/uL Normal <0.46 [facility] Comment on above: Order Comment: Speci men Type: BLOOD SPECIMENOrdering Facility: [facility] Address: [address] [place] [address] Performed By: #### 5 7021-8 ####[facility] LABCLIA [id number] [place] [address] [place] Eosinophils/100 WBC (Bld) 0.2 % Normal [facility] Comment on above: Order Comment: Speci men Type: BLOOD SPECIMENOrdering Facility: [facility] Address: [address] [place] [address] Performed By: #### 5 7021-8 ####[facility] LABCLIA [id number] [place] [address] [place] Erythrocyte distribution width (RBC) [Ratio] 13.3 % Normal 11.5-15.0 [facility] Comment on above: Order Comment: Speci men Type: BLOOD SPECIMENOrdering Facility: [facility] Address: [address] [place] [address] Performed By: #### 5 7021-8 ####[facility] LABCLIA [id number] [place] [address] [place] Hematocrit (Bld) [Volume fraction] 36.8 % Normal 36.0-46.0 [facility] Comment on above: Order Comment: Speci men Type: BLOOD SPECIMENOrdering Facility: [facility] Address: [address] [place] [address] Performed By: #### 5 7021-8 ####[facility] LABCLIA [id number] [place] [address] [place] Hemoglobin (Bld) [Mass/Vol] 11.8 g/dL Normal 11.5-15.5 [facility] Comment on above: Order Comment: Speci men Type: BLOOD SPECIMENOrdering Facility: [facility] Address: [address] [place] [address] Performed By: #### 5 7021-8 ####[facility] LABCLIA [id number] [place] [address] [place] Immature granulocytes (Bld) [#/Vol] 0.05 10*3/uL Normal <0.10 [facility] Comment on above: Order Comment: Speci men Type: BLOOD SPECIMENOrdering Facility: [facility] Address: [address] [place] [address] Performed By: #### 5 7021-8 ####[facility] LABIA [id number] [place] [address] [place] Immature granulocytes/100 WBC (Bld) 0.4 % Normal [facility] Comment on above: Order Comment: Speci men Type: BLOOD SPECIMENOrdering Facility: [facility] Address: [address] [place] [address] Performed By: #### 5 7021-8 ####[facility] LABIA [id number] [place] [address] [place] Lymphocytes (Bld) [#/Vol] 1.26 10*3/uL Normal 1.00-4.00 [facility] Comment on above: Order Comment: Speci men Type: BLOOD SPECIMENOrdering Facility: [facility] Address: [address] [place] [address] Performed By: #### 5 7021-8 ####[facility] LABCLIA [id number] [place] [address] [place] Lymphocytes/100 WBC (Bld) 10.1 % Normal [facility] Comment on above: Order Comment: Speci men Type: BLOOD SPECIMENOrdering Facility: [facility] Address: [address] [place] [address] Performed By: #### 5 7021-8 ####[facility] [id number] [place] [address] [place] MCH (RBC) [Entitic mass] 32.6 pg Normal 26.0-34.0 [facility] Comment on above: Order Comment: Speci men Type: BLOOD SPECIMENOrdering Facility: [facility] Address: [address] [place] [address] Performed By: #### 5 7021-8 ####[facility] [id number] [place] [address] [place] MCHC (RBC) [Mass/Vol] 32.1 g/dL Normal 30.5-36.0 [facility] Comment on above: Order Comment: Speci men Type: BLOOD SPECIMENOrdering Facility: [facility] Address: [address] [place] [address] Performed By: #### 5 7021-8 ####[facility] [id number] [place] [address] [place] MCV (RBC) [Entitic vol] 101.7 fL High 80.0-100.0 C [facility] Comment on above: Order Comment: Speci men Type: BLOOD SPECIMENOrdering Facility: [facility] Address: [address] [place] [address] Performed By: #### 5 7021-8 ####[facility] [id number] [place] [address] [place] Monocytes (Bld) [#/Vol] 1.09 10*3/uL High <0.87 [facility] Comment on above: Order Comment: Speci men Type: BLOOD SPECIMENOrdering Facility: [facility] Address: [address] [place] [address] Performed By: #### 5 7021-8 ####[facility] LABCLIA [id number] [place] [id number] [place] Monocytes/100 WBC (Bld) 8.7 % Normal C [facility] Comment on above: Order Comment: Speci men Type: BLOOD SPECIMENOrdering Facility: [facility] Address: [address] [place] [address] Performed By: #### 5 7021-8 ####[facility] LABCLIA [id number] [place] [address] [place] Neutrophils (Bld) [#/Vol] 10.04 10*3/uL High 1.45-7.50 [facility] Comment on above: Order Comment: Speci men Type: BLOOD SPECIMENOrdering Facility: [facility] Address: [address] [place] [address] Performed By: #### 5 7021-8 ####[facility] LABCLIA [id number] [place] [address] [place] Neutrophils/100 WBC (Bld) 80.4 % Normal [facility] Comment on above: Order Comment: Speci men Type: BLOOD SPECIMENOrdering Facility: [facility] Address: [address] [place] [address] Performed By: #### 5 7021-8 ####[facility] LABCLIA [id number] [place] [address] [place] Nucleated RBC (Bld) [#/Vol] 10*3/uL Normal <0.01 [facility] Comment on above: Order Comment: Speci men Type: BLOOD SPECIMENOrdering Facility: [facility] Address: [address] [place] [address] Performed By: #### 5 7021-8 ####[facility] LABCLIA [id number] [place] [id number] [place] Nucleated RBC/100 WBC (Bld) [Ratio] 0.0 /100 WBC Normal [facility] Comment on above: Order Comment: Speci men Type: BLOOD SPECIMENOrdering Facility: [facility] Address: [address] [place] [address] Performed By: #### 5 7021-8 ####[facility] LABIA [id number] [place] [address] [place] Platelet mean volume (Bld) [Entitic vol] 10.6 fL Normal 9.0-12.7 [facility] Comment on above: Order Comment: Speci men Type: BLOOD SPECIMENOrdering Facility: [facility] Address: [address] [place] [address] Performed By: #### 5 7021-8 ####[facility] LABIA [id number] [place] [address] [place] Platelets (Bld) [#/Vol] 168 10*3/uL Normal 150-400 [facility] Comment on above: Order Comment: Speci men Type: BLOOD SPECIMENOrdering Facility: [facility] Address: [address] [place] [address] Performed By: #### 5 7021-8 ####[facility] LABIA [id number] [place] [address] [place] RBC (Bld) [#/Vol] 3.62 10*6/uL Low 3.90-5.20 [facility] Comment on above: Order Comment: Speci men Type: BLOOD SPECIMENOrdering Facility: [facility] Address: [address] [place] [address] Performed By: #### 5 7021-8 ####[facility] LABIA [id number] [place] [address] [place] WBC (Bld) [#/Vol] 12.49 10*3/uL High 3.70-11.00 [facility] Comment on above: Order Comment: Speci men Type: BLOOD SPECIMENOrdering Facility: [facility] Address: [address] [place] [address] Performed By: #### 5 7021-8 ####[facility] LABCLIA [id number] [id number] [address] [place] ANES POSTPROC EVALon 024 ANES POSTPROC EVAL HNO ID: [id number] Author: ESVIN ALLEN MD Service: ? Author Type: Anesthesiologist Type: Anesthesia Postprocedure Evaluation Filed: 10/18/2023 12:06 Note Text: POST ANESTHESIA EVALUATION NOTE : 1935 Procedure Summary Date: 10/18/23 Room / Location: [address] [facility] Anesthesia Start: 732 Anesthesia Stop: 1057 Procedure: PERC NEPHROLITHOTOMY LITHOTRIPSY,STONE EXTRACTION,ANTEGRADE URETEROSCOPY,STENT PLACEMENT WHEN PERFORMED INCD IMAGING UP TO 2cm (Left: Kidney) Diagnosis: Nephrolithiasis (Nephrolithiasis [N20.0]) Surgeons: Ricco Garland MD Responsible Provider: Esivn Allen MD Anesthesia Type: general ASA Status: 3 Anesthesia Type: general Airway Type: ETT Last Vitals Vitals Value Taken Time BP 160/67 10/18/23 1130 Temp 36 ?C (96.8 ?F) 10/18/23 1130 Pulse 63 10/18/23 1130 Resp 13 10/18/23 1130 SpO2 100 % 10/18/23 1130 Post Anesthesia Patient Status Patient Evaluation: bedside. Anticipated Disposition: phase 2 then home. Neurological Status: aware and responsive. Pulmonary Status: breathing comfortably on supplemental oxygen Airway Control: returned to baseline unsupported. Cardiovascular Status: stable. Pain Management: clinically adequate Postoperative Hydration: acceptable. Intraoperative Events: no significant anesthesia events Post Operative Nausea/Vomiting Status: no significant post operative nausea or vomiting Recommendation: continue current plan of care. Anesthesia Observations No notable events were associated with this procedure. Documented by Jon Cerda SRNA 10/18/2023 10:59 AM EST SIGNATURE: Esvin Allen MD PATIENT NAME: Jesús Nolan DATE: October 18, 2023 TIME: 12:06 PM CSN: [id number] Normal [facility] ANES PRE-OPon 10-18-2023 [facility] PRE-OP HNO ID: [id number] Author: ESVIN ALLEN MD Service: ? Author Type: Anesthesiologist Type: Anesthesia Preprocedure Evaluation Filed: 10/18/2023 07:50 Note Text: ANESTHESIOLOGY DAY OF SURGERY NOTE : 1935 Procedure Information Anesthesia Start Date/Time: 10/18/23 0733 Procedure: PERC NEPHROLITHOTOMY LITHOTRIPSY,STONE EXTRACTION,ANTEGRADE URETEROSCOPY,STENT PLACEMENT WHEN PERFORMED INCD IMAGING UP TO 2cm (Left: Kidney) Location: MA[facility] OR[facility] Surgeons: Ricco Garland MD Estimated body mass index is 24.54 kg/m? as calculated from the following: Height as of this encounter: 152.4 cm (5'). Weight as of this encounter: 57 kg (125 lb 10.6 oz). Most recent hematocrit and potassium results: Hematocrit 40.4 10/17/2023 Potassium 4.3 10/17/2023 Relevant Problems CARDIO (+) Essential hypertension -RENAL (+) Stage 4 chronic kidney disease (HCC) (+) Staghorn calculus NEURO-PSYCH (+) History of recurrent UTIs PULMONARY (+) History of recurrent UTIs Other (+) Arthritis I - PHYSICAL EVALUATION AIRWAY Patient intubated: No. Tracheostomy tube not present Mallampati: III. TM distance: >3 FB. Neck ROM: full ROM without neurological symptoms. Mouth opening: adequate. Short neck: yes. Thick neck: yes DENTAL Dental findings: missing tooth/teeth. Dentures, upper: complete. Dentures, lower: complete. II - ANESTHESIA PLAN ASA Score: 3 Anesthetic Plan: general Airway type: ETT NPO Status: adequate Beta Ellie Monitoring Plan Monitoring plan: standard ASA. Post Procedure Analgesic Plan Postoperative analgesic plan: multimodal analgesia. Informed Consent Anesthetic risks, benefits, alternatives, personnel and consent discussed: yes. Patient / Responsible [employer] Party agrees to proceed: yes Patient / Surrogate agrees to blood products: Yes DNR status not reviewed with patient and/or family prior to surgery. Significant changes in the patient condition since the History and Physical, not otherwise documented in primary service progress note: no. Potential Anesthesia issues that may suggest increased risk of complications or contraindication to planned procedure: potential difficult IV access. No vitals data found for the desired time range. Facility-Administered Medications as of 10/18/2023 Medication Dose Route Frequency - [Held on Transfer] busPIRone 10 mg tab(s) (BUSPAR) 10 mg ORAL DAILY - [Held on Transfer] diclofenac 1 % 2 g topical gel (VOLTAREN) 2 g TOPICAL QID PRN - [Held on Transfer] pravastatin 10 mg tab(s) (PRAVACHOL) 10 mg ORAL AT BEDTIME - [Held on Transfer] verapamil SR 180 mg tab(s) (CALAN SR) 180 mg ORAL DAILY - [Held on Transfer] docusate sodium 100 mg cap(s) (COLACE) 100 mg ORAL BID - [Held on Transfer] NaCl 0.9% iv flush bag 20 mL INTRAVENOUS PRN - [Held on Transfer] lactated ringers iv infusion 75 mL/hr INTRAVENOUS CONTINUOUS - [Held on Transfer] acetaminophen 325-650 mg tab(s) (TYLENOL) 325-650 mg ORAL q 4 H PRN - [Held on Transfer] ondansetron (PF) 4 mg injection (ZOFRAN) 4 mg INTRAVENOUS q 6 H PRN - [Held on Transfer] magnesium hydroxide 400 mg/5 mL 30 mL (MOM) 30 mL ORAL DAILY PRN - [Held on Transfer] melatonin 9 mg tab(s) 9 mg ORAL DAILY (8 PM) - [Held on Transfer] hydrALAZINE 25 mg tab(s) (APRESOLINE) 25 mg ORAL q 12 H - [Held on Transfer] ampicillin-sulbactam iv piggyback 3 g in NaCl 0.9% 100 mL Vial-Bag (UNASYN) 3 g INTRAVENOUS q 12 H Outpatient Medications as of 10/18/2023 Medication Sig - busPIRone (BUSPAR) 10 mg tablet - hydrALAZINE (APRESOLINE) 25 mg tablet Take 25 mg by mouth. - pravastatin (PRAVACHOL) 10 mg tablet Take 10 mg by mouth. - verapamil SR (CALAN SR) 180 mg CR tablet Take 180 mg by mouth. - VITAMIN C 500 mg tablet - calcitriol (ROCALTROL) 0.25 mcg capsule Take 0.25 mcg by mouth. - calcium acetate (CALPHRON) 667 mg tablet - docusate sodium (COLACE) 100 mg capsule Take 100 mg by mouth. - ferrous sulfate 325 mg (65 mg iron) tablet - furosemide (LASIX) 20 mg tablet Take 20 mg by mouth. - LORazepam (ATIVAN) 0.5 mg Take 0.5 mg by mouth every 6 hours as needed. - melatonin 10 mg ODT - polyethylene glycol 3350 17 gram packet Take 17 g by mouth. - diclofenac (VOLTAREN) 1 % topical gel - HYDROcodone-Acetaminop hen (NORCO) 10-325 mg per tablet - lactulose 10 gram/15 mL solution (Patient not taking: Reported on 09/23/2023) - HIGH POTENCY MULTIVITAMIN 400 mcg - estradiol (ESTRACE) 0.01 % (0.1 mg/gram) vaginal cream Use 1 g vaginally one time a week. I have interviewed and examined the patient. I have reviewed the medical record and/or the pre-anesthesia evaluation, pertinent labs, and test results. This contains updated information obtained within 48 hours of Surgery/Procedure. SIGNATURE: Esvin Allen MD PATIENT NAME: Jesús Nolan DATE: October 18, 2023 TIME: 7:49 AM CSN: [id number] Normal [facility] Bacteria Ur Culton 4 Bacteria identified Cx Nom (U) CULTURE, URINE: No growth (<1,000 CFU/ml) Normal [facility] Comment on above: Performed By: #### 6 30-4 ####[facility] LABIA [id number] [place] [address] [place] Basic metabolic 2000 panelon 10-18-2023 Anion gap [Moles/Vol] 14 mmol/L Normal 9-18 [facility] Comment on above: Order Comment: Speci men Type: BLOOD SPECIMENOrdering Facility: [facility] Address: [address] [place] [address] Performed By: #### 2 4321-2 ####[facility] LABIA [id number] [place] [address] [place] Calcium [Mass/Vol] 8.0 mg/dL Low 8.5-10.2 [facility] Comment on above: Order Comment: Speci men Type: BLOOD SPECIMENOrdering Facility: [facility] Address: [address] [place] [address] Performed By: #### 2 4321-2 ####[facility] LABCLIA [id number] [place] [address] [place] Chloride [Moles/Vol] 106 mmol/L High 97-105 [facility] Comment on above: Order Comment: Speci men Type: BLOOD SPECIMENOrdering Facility: [facility] Address: [address] [place] [address] Performed By: #### 2 4321-2 ####[facility] LABCLIA [id number] [place] [address] [place] CO2 [Moles/Vol] 24 mmol/L Normal 22-30 [facility] Comment on above: Order Comment: Speci men Type: BLOOD SPECIMENOrdering Facility: [facility] Address: [address] [place] [address] Performed By: #### 2 4321-2 ####[facility] LABCLIA [id number] [place] [address] [place] Creatinine [Mass/Vol] 1.91 mg/dL High 0.58-0.96 [facility] Comment on above: Order Comment: Speci men Type: BLOOD SPECIMENOrdering Facility: [facility] Address: [address] [place] [address] Performed By: #### 2 4321-2 ####[facility] LABCLIA [id number] [place] [address] [place] Creatinine and Glomerular filtration rate.predicted panel (S/P/Bld) 25 mL/min/1.73m??? Low >=60 [facility] Comment on above: Order Comment: Speci men Type: BLOOD SPECIMENOrdering Facility: [facility] Address: [address] [place] [address] Result Comment: Melissa mated Glomerular Filtration Rate [...] reflect actual GFR. Performed By: #### 2 4321-2 ####[facility] LABCLIA [id number] [place] [address] [place] Glucose [Mass/Vol] 197 mg/dL High 74-99 [facility] Comment on above: Order Comment: Lalo mclaughlin Type: BLOOD SPECIMENOrdering Facility: [facility] Address: [address] [place] [address] Result Comment: The [place] [employer] (ADA) provides guidance for cutoff [...] Standards of Medical Care in Diabetes 2016, [place] [employer]. Diabetes Care. 2016.39(Suppl 1). Performed By: #### 2 4321-2 ####[facility] LABCLIA [id number] [place] [id number] [place] Potassium [Moles/Vol] 4.0 mmol/L Normal 3.7-5.1 [facility] Comment on above: Order Comment: Lalo mclaughlin Type: BLOOD SPECIMENOrdering Facility: [facility] Address: [address] [place] [address] Performed By: #### 2 4321-2 ####[facility] LABIA [id number] [place] [id number] [place] Sodium [Moles/Vol] 144 mmol/L Normal 136-144 [facility] Comment on above: Order Comment: Lalo men Type: BLOOD SPECIMENOrdering Facility: [facility] Address: [address] [place] [address] Performed By: #### 2 4321-2 ####[facility] LABIA [id number] [place] [address] [place] Urea nitrogen [Mass/Vol] 25 mg/dL High 7-21 [facility] Comment on above: Order Comment: Speci men Type: BLOOD SPECIMENOrdering Facility: [facility] Address: [address] [place] [address] Performed By: #### 2 4321-2 ####[facility] [id number] [address] [place] CALCULI ANALYSISon 4 Calculus analysis [Interp] Normal [facility] Comment on above: Order Comment: Speci men Type: CALCULUS SPECIMENOrdering Facility: [facility] Address: [address] [place] [address] Result Comment: This test was developed and its performance characteristics determined by [facility]'s [facility] Pathology and Laboratory Medicine [place] (-[facility]). It has not been cleared or approved by the FDA. -[facility] is regulated under CLIA as qualified to perform high-complexity testing. This test is used for clinical purposes. It should not be regarded as investigational or for research. Performed By: #### C SA ####[facility] LABIA [id number] [place] [address] [place] CALCULUS COLOR MEDINA Normal [facility] Comment on above: Order Comment: Speci men Type: CALCULUS SPECIMENOrdering Facility: [facility] Address: [address] [place] [address] Performed By: #### C SA ####[facility] LABIA [id number] [address] [place] CALCULUS COMPOSITION 1 60% Calcium Phosphate Normal [facility] Comment on above: Order Comment: Speci men Type: CALCULUS SPECIMENOrdering Facility: [facility] Address: [address] [place] [address] Performed By: #### C SA ####[facility] LABCLIA [id number] [place] [address] [place] CALCULUS COMPOSITION 2 40% Magnesium Amm onium Phosphate Normal [facility] Comment on above: Order Comment: Speci men Type: CALCULUS SPECIMENOrdering Facility: [facility] Address: [facility] [place] [address] Performed By: #### C SA ####[facility] LABIA [id number] [place] [address] [place] CALCULUS SIZE AND WT Multiple pieces. 12.1620 GRAMS Normal [facility] Comment on above: Order Comment: Speci men Type: CALCULUS SPECIMENOrdering Facility: [facility] Address: [address] [place] [address] Performed By: #### C SA ####[facility] LABIA [id number] [place] [address] [place] CALCULUS TYPE CALCULI/CALCULUS Normal [facility] Comment on above: Order Comment: Speci men Type: CALCULUS SPECIMENOrdering Facility: [facility] Address: [address] [place] [address] Performed By: #### C SA ####[facility] LABIA [id number] [place] [address] [place] CBC panel Auto (Bld)on 10-18 Erythrocyte distribution width (RBC) [Ratio] 13.2 % Normal 11.5-15.0 [facility] Comment on above: Order Comment: Speci men Type: BLOOD SPECIMENOrdering Facility: [facility] Address: [address] [place] [address] Performed By: #### 5 8410-2 ####[facility] LABIA [id number] [place] [address] [place] Hematocrit (Bld) [Volume fraction] 37.0 % Normal 36.0-46.0 [facility] Comment on above: Order Comment: Speci men Type: BLOOD SPECIMENOrdering Facility: [facility] Address: [address] [place] [address] Performed By: #### 5 8410-2 ####[facility] LABIA [id number] [place] [address] [place] Hemoglobin (Bld) [Mass/Vol] 11.8 g/dL Normal 11.5-15.5 [facility] Comment on above: Order Comment: Speci men Type: BLOOD SPECIMENOrdering Facility: [facility] Address: [address] [place] [address] Performed By: #### 5 8410-2 ####[facility] LABIA [id number] [place] [address] [place] MCH (RBC) [Entitic mass] 31.7 pg Normal 26.0-34.0 [facility] Comment on above: Order Comment: Speci men Type: BLOOD SPECIMENOrdering Facility: [facility] Address: [address] [place] [address] Performed By: #### 5 8410-2 ####[facility] LABIA [id number] [place] [address] [place] MCHC (RBC) [Mass/Vol] 31.9 g/dL Normal 30.5-36.0 [facility] Comment on above: Order Comment: Speci men Type: BLOOD SPECIMENOrdering Facility: [facility] Address: [address] [place] [address] Performed By: #### 5 8410-2 ####[facility] LABIA [id number] [place] [address] [place] MCV (RBC) [Entitic vol] 99.5 fL Normal 80.0-100.0 [facility] Comment on above: Order Comment: Speci men Type: BLOOD SPECIMENOrdering Facility: [facility] Address: [address] [place] [address] Performed By: #### 5 8410-2 ####[facility] LABCLIA [id number] [place] [address] [place] Nucleated RBC (Bld) [#/Vol] 10*3/uL Normal <0.01 [facility] Comment on above: Order Comment: Speci men Type: BLOOD SPECIMENOrdering Facility: [facility] Address: [address] [place] [address] Performed By: #### 5 8410-2 ####[facility] LABIA [id number] [place] [address] [place] Platelet mean volume (Bld) [Entitic vol] 10.4 fL Normal 9.0-12.7 [facility] Comment on above: Order Comment: Speci men Type: BLOOD SPECIMENOrdering Facility: [facility] Address: [address] [place] [address] Performed By: #### 5 8410-2 ####[facility] LABIA [id number] [place] [address] [place] Platelets (Bld) [#/Vol] 165 10*3/uL Normal 150-400 [facility] Comment on above: Order Comment: Speci men Type: BLOOD SPECIMENOrdering Facility: [facility] Address: [address] [place] [address] Performed By: #### 5 8410-2 ####[facility] LABIA [id number] [place] [address] [place] RBC (Bld) [#/Vol] 3.72 10*6/uL Low 3.90-5.20 [facility] Comment on above: Order Comment: Speci men Type: BLOOD SPECIMENOrdering Facility: [facility] Address: [address] [place] [address] Performed By: #### 5 8410-2 ####[facility] LABCLIA [id number] [place] [address] [place] WBC (Bld) [#/Vol] 18.32 10*3/uL High 3.70-11.00 [facility] Comment on above: Order Comment: Speci men Type: BLOOD SPECIMENOrdering Facility: [facility] Address: [place] [address] Performed By: #### 5 8410-2 ####[facility] LABCLIA [id number] [address] [place] OPERATIVE NOon 10-18-2023 OPERATIVE NO HNO ID: [id number] Author: RICCO GARLAND MD Service: Urology Author Type: Physician Type: Operative Report Filed: 10/18/2023 11:07 Note Text: OPERATIVE/PROCEDURE REPORT LOG ID: [id number] Surgery/Procedure Date: 10/18/2023 Incision/Procedure Start Time: 8:31 AM Incision Close/Procedure End Time: 10:20 AM Surgeon(s)/Procedurali st(s) and Hydraulic Elevator Constructor(s): Surgeon(s) and Role: * Ricco Garland MD - Primary * Jacob Palmer MD - Resident - Assisting * Ce Falk MD - Fellow Procedure(s): Cystourethroscopy Left retrograde pyelogram Left percutaneous renal access and dilation of renal access tract Left percutaneous nephrolithotomy and removal of stone >> 2.0 cm Left retrograde and antegrade flexible ureteroscopy Left retrograde JJ ureteric stent insertion 7F 22 cm Fluoroscopy < 1 hr Anesthesia: General Findings: Stone Upper Tract: Primary stone >40 mm staghorn Access: 1 tract(s), fluoroscopy-guided (eye of the needle technique) access with endoscopic visualization, lower pole calyx; 3 puncture attempt(s) Sheath: 24 Fr standard PCNL sheath, 8 mm incision Lithotriptor: Olympus ShockPulse-SE Laser: N/A Irrigation: Thermedx FluidSmart fluid management system; max pressure 200 mmHg Anatomic Findings: staghorn stone, likely struvite Post-Op Plan: Admit overnight for observation. Plan for ureteric stent removal in 1-2 week(s). Clinical Indications: Jesús Nolan is a 88 year old year-old female with left nephrolithiasis. Preoperative imaging showed a left staghorn calculus. Risks, benefits, and alternatives to the procedure were discussed in clinic with the patient and the patient consented to the above procedure. Operative Procedure: Jesús Nolan was brought into the operating room. The patient was correctly identified and the operative plan was confirmed with the patient and the operative team. A weight appropriate dose of prophylactic antibiotics (Ampicillin-Sulbactam) was administered intravenously prior to the procedure and sequential compression devices were applied to the lower extremities and activated prior to induction of anesthesia. General anesthesia was induced. Fluoroscopy C-arm was brought into the room. The patient was then placed in the prone split leg position. All pressure points were padded per protocol and the operative area was prepped and draped in the standard sterile fashion. Flexible Cystoscopy was performed in the prone position. The left ureteral orifice was intubated with a stiff glidewire and advanced up to the kidney under fluoroscopic control. A 10F dual lumen was used to introduce a second amplatz stiff wire. A 11/13 Fr by 28 cm ureteral access sheath was advanced over the working wire under fluoroscopy to the mid-proximal ureter and the wire and inner sheath were removed. A flexible ureteroscope was advanced through the ureteral access sheath. We identified stone in the pelvis, lower, and upper pole groups. The flexible ureteroscope was maneuvered into a lower pole calyx. A 18 G Chiba percutaneous access needle was then used to gain access into calyx using the eye of the needle technique. Once the needle was within the collecting system and visualized endoscopically, the inner stylet was removed. A 0.038 straight glide wire was advanced through the needle and into the calyx. The wire was grasped using a Halo basket through the flexible ureteroscope and pulled out through the ureteral access sheath, obtaining through and through access. The straight glide wire was exchanged for a Amplatz super stiff wire through a open-ended ureteral 5F glide catheter, and secured to the drape. The tract was incised at the skin to 8 mm. The renal tract was dilated using a 8/10F dilator. The Bard X-Force nephrostomy balloon was advanced over the wire and noted to enter the collecting system fluoroscopically. The renal tract was dilated to 24 Fr using 30 racheal with fluoroscopic confirmation. The working sheath was then advanced over the balloon and into the kidney under fluoroscopic guidance. The balloon was then removed, and the rigid nephroscope was inserted. The Amplatz super stiff wire was secured as a safety wire. Rigid nephroscopy was then performed, and stone was visualized in the lower pole, renal pelvis, UPJ, and upper pole. Stone was fragmented and suctioned out using the Olympus ShockPulse lithotripter. Flexible nephroscopy was then performed and further stones were removed with the Halo basket.Flexible ureteroscopy was then performed retrograde, and small fragments in the ureter were extracted with the Halo basket. The ureteral access sheath was removed over the flexible ureteroscope while examining the length of the ureter. No ureteral trauma or further stones were seen. A 7 Fr x 22 cm JJ ureteric stent was placed retrograde over the safety wire with a good curl noted in the kidney and bladder on fluoroscopy. A 20 Johan (more content not included)... Normal [facility] XR CHEST 1V FRONTAL PORTon 0 10-18-2023 XR CHEST 1V FRONTAL PORT * * *Final Report* * * DATE OF EXAM: Oct 18 2023 11:23AM ESX [id number] - XR CHEST 1V FRONTAL PORT / PROCEDURE REASON: Post-operative/post-pr ocedure assessment * * * * Physician Interpretation * * * * EXAMINATION: CHEST RADIOGRAPH (PORTABLE SINGLE VIEW AP) Clinical History: Post-operative/post-pr ocedure assessment Comparison: None. RESULT: Lines, tubes, and devices: None. Lungs and pleura: There is no focal consolidation, pleural effusion, or pneumothorax. Cardiomediastinal silhouette: Within normal limits. Bones and soft tissues: No acute osseous abnormality is identified. The imaged upper abdomen is within normal limits. IMPRESSION: No acute cardiopulmonary process. Director Of Teenage Activities: [employer] Transcribe Date/Time: Oct 18 2023 11:35A Dictated by : CHARLIE JOHNSON MD This examination was interpreted and the report reviewed and electronically signed by: CHARLIE JOHNSON MD on Oct 18 2023 11:35AM EST [id number] Normal [facility] Bacteria Ur Culton 4 Bacteria identified Cx Nom (U) CULTURE, URINE: No growth (<1,000 CFU/ml) Normal [facility] Comment on above: Performed By: #### 6 30-4 ####[facility] LABCLIA [id number] [address] [address] [place] Basic metabolic 2000 panelon 10-17-2023 Anion gap [Moles/Vol] 17 mmol/L Normal 9-18 [facility] Comment on above: Order Comment: Speci men Type: BLOOD SPECIMENOrdering Facility: [facility] Address: [address] [place] [address] Performed By: #### 2 4321-2 ####[facility] LABCLIA [id number] [place] [address] [place] Calcium [Mass/Vol] 9.7 mg/dL Normal 8.5-10.2 [facility] Comment on above: Order Comment: Speci men Type: BLOOD SPECIMENOrdering Facility: [facility] Address: [address] [place] [address] Performed By: #### 2 4321-2 ####[facility] LABCLIA [id number] [place] [address] [place] Chloride [Moles/Vol] 103 mmol/L Normal 97-105 [facility] Comment on above: Order Comment: Speci men Type: BLOOD SPECIMENOrdering Facility: [facility] Address: [address] [place] [address] Performed By: #### 2 4321-2 ####[facility] LABCLIA [id number] [place] [address] [place] CO2 [Moles/Vol] 23 mmol/L Normal 22-30 [facility] Comment on above: Order Comment: Speci men Type: BLOOD SPECIMENOrdering Facility: [facility] Address: [address] [place] [address] Performed By: #### 2 4321-2 ####[facility] LABCLIA [id number] [place] [address] [place] Creatinine [Mass/Vol] 2.11 mg/dL High 0.58-0.96 [facility] Comment on above: Order Comment: Lalo mclaughlin Type: BLOOD SPECIMENOrdering Facility: [facility] Address: [address] [place] [address] Performed By: #### 2 4321-2 ####[facility] LABCLIA [id number] [place] [address] [place] Creatinine and Glomerular filtration rate.predicted panel (S/P/Bld) 22 mL/min/1.73m??? Low >=60 [facility] Comment on above: Order Comment: Lalo mclaughlin Type: BLOOD SPECIMENOrdering Facility: [facility] Address: [address] [place] [address] Result Comment: Melissa mated Glomerular Filtration Rate [...] reflect actual GFR. Performed By: #### 2 4321-2 ####[facility] LABCLIA [id number] [place] [address] [place] Glucose [Mass/Vol] 129 mg/dL High 74-99 [facility] Comment on above: Order Comment: Lalo mclaughlin Type: BLOOD SPECIMENOrdering Facility: [facility] Address: [address] [place] [address] Result Comment: The [place] [employer] (ADA) provides guidance for cutoff [...] Standards of Medical Care in Diabetes 2016, [place] [employer]. Diabetes Care. 2016.39(Suppl 1). Performed By: #### 2 4321-2 ####[facility] LABCLIA [id number] [place] [address] [place] Potassium [Moles/Vol] 4.3 mmol/L Normal 3.7-5.1 [facility] Comment on above: Order Comment: Speci men Type: BLOOD SPECIMENOrdering Facility: [facility] Address: [address] [place] [address] Performed By: #### 2 4321-2 ####[facility] LABIA [id number] [place] [address] [place] Sodium [Moles/Vol] 143 mmol/L Normal 136-144 [facility] Comment on above: Order Comment: Speci men Type: BLOOD SPECIMENOrdering Facility: [facility] Address: [address] [place] [address] Performed By: #### 2 4321-2 ####[facility] LABIA [id number] [place] [address] [place] Urea nitrogen [Mass/Vol] 30 mg/dL High - [facility] Comment on above: Order Comment: Speci men Type: BLOOD SPECIMENOrdering Facility: [facility] Address: [address] [place] [address] Performed By: #### 2 4321-2 ####[facility] LABIA [id number] [place] [id number] [place] CBC W Auto Differential pane l (Bld)on 10-17-2023 Basophils (Bld) [#/Vol] 10*3/uL Normal <0.11 [facility] Comment on above: Order Comment: Speci men Type: BLOOD SPECIMENOrdering Facility: [facility] Address: [address] [place] [address] Performed By: #### 5 7021-8 ####[facility] LABIA [id number] [place] [address] [place] Basophils/100 WBC (Bld) 0.1 % Normal C [facility] Comment on above: Order Comment: Speci men Type: BLOOD SPECIMENOrdering Facility: [facility] Address: [address] [place] [address] Performed By: #### 5 7021-8 ####[facility] LABCLIA [id number] [place] [address] [place] Differential cell count method Nom (Bld) Auto Normal [facility] Comment on above: Order Comment: Speci men Type: BLOOD SPECIMENOrdering Facility: [facility] Address: [address] [place] [address] Performed By: #### 5 7021-8 ####[facility] LABCLIA [id number] [place] [address] [place] Eosinophils (Bld) [#/Vol] 0.07 10*3/uL Normal <0.46 [facility] Comment on above: Order Comment: Speci men Type: BLOOD SPECIMENOrdering Facility: [facility] Address: [address] [place] [address] Performed By: #### 5 7021-8 ####[facility] LABCLIA [id number] [place] [address] [place] Eosinophils/100 WBC (Bld) 1.0 % Normal [facility] Comment on above: Order Comment: Speci men Type: BLOOD SPECIMENOrdering Facility: [facility] Address: [address] [place] [address] Performed By: #### 5 7021-8 ####[facility] LABCLIA [id number] [place] [address] [place] Erythrocyte distribution width (RBC) [Ratio] 13.2 % Normal 11.5-15.0 [facility] Comment on above: Order Comment: Speci men Type: BLOOD SPECIMENOrdering Facility: [facility] Address: [address] [place] [address] Performed By: #### 5 7021-8 ####[facility] LABIA [id number] [place] [address] [place] Hematocrit (Bld) [Volume fraction] 40.4 % Normal 36.0-46.0 [facility] Comment on above: Order Comment: Speci men Type: BLOOD SPECIMENOrdering Facility: [facility] Address: [address] [place] [address] Performed By: #### 5 7021-8 ####[facility] LABIA [id number] [place] [address] [place] Hemoglobin (Bld) [Mass/Vol] 13.1 g/dL Normal 11.5-15.5 [facility] Comment on above: Order Comment: Speci men Type: BLOOD SPECIMENOrdering Facility: [facility] Address: [address] [place] [address] Performed By: #### 5 7021-8 ####[facility] LABIA [id number] [place] [address] [place] Immature granulocytes (Bld) [#/Vol] 10*3/uL Normal <0.10 [facility] Comment on above: Order Comment: Speci men Type: BLOOD SPECIMENOrdering Facility: [facility] Address: [address] [place] [address] Performed By: #### 5 7021-8 ####[facility] LABCLIA [id number] [place] [address] [place] Immature granulocytes/100 WBC (Bld) 0.3 % Normal [facility] Comment on above: Order Comment: Speci men Type: BLOOD SPECIMENOrdering Facility: [facility] Address: [address] [place] [address] Performed By: #### 5 7021-8 ####[facility] LABIA [id number] [place] [address] [place] Lymphocytes (Bld) [#/Vol] 2.21 10*3/uL Normal 1.00-4.00 [facility] Comment on above: Order Comment: Speci men Type: BLOOD SPECIMENOrdering Facility: [facility] Address: [address] [place] [address] Performed By: #### 5 7021-8 ####[facility] LABCLIA [id number] [place] [address] [place] Lymphocytes/100 WBC (Bld) 30.8 % Normal [facility] Comment on above: Order Comment: Speci men Type: BLOOD SPECIMENOrdering Facility: [facility] Address: [address] [place] [address] Performed By: #### 5 7021-8 ####[facility] LABCLIA [id number] [place] [address] [place] MCH (RBC) [Entitic mass] 31.9 pg Normal 26.0-34.0 [facility] Comment on above: Order Comment: Speci men Type: BLOOD SPECIMENOrdering Facility: [facility] Address: [address] [place] [address] Performed By: #### 5 7021-8 ####[facility] LABCLIA [id number] [place] [address] [place] MCHC (RBC) [Mass/Vol] 32.4 g/dL Normal 30.5-36.0 [facility] Comment on above: Order Comment: Speci men Type: BLOOD SPECIMENOrdering Facility: [facility] Address: [address] [place] [address] Performed By: #### 5 7021-8 ####[facility] LABCLIA [id number] [address] [place] MCV (RBC) [Entitic vol] 98.3 fL Normal 80.0-100.0 C [facility] Comment on above: Order Comment: Speci men Type: BLOOD SPECIMENOrdering Facility: [facility] Address: [address] [place] [address] Performed By: #### 5 7021-8 ####[facility] LABCLIA [id number] [place] [address] [place] Monocytes (Bld) [#/Vol] 0.68 10*3/uL Normal <0.87 [facility] Comment on above: Order Comment: Speci men Type: BLOOD SPECIMENOrdering Facility: [facility] Address: [address] [place] [address] Performed By: #### 5 7021-8 ####[facility] LABCLIA [id number] [address] [place] Monocytes/100 WBC (Bld) 9.5 % Normal [facility] Comment on above: Order Comment: Speci men Type: BLOOD SPECIMENOrdering Facility: [facility] Address: [address] [place] [address] Performed By: #### 5 7021-8 ####[facility] LABCLIA [id number] [place] [address] [place] Neutrophils (Bld) [#/Vol] 4.19 10*3/uL Normal 1.45-7.50 [facility] Comment on above: Order Comment: Speci men Type: BLOOD SPECIMENOrdering Facility: [facility] Address: [address] [place] [address] Performed By: #### 5 7021-8 ####[facility] LABCLIA [id number] [place] [address] [place] Neutrophils/100 WBC (Bld) 58.3 % Normal [facility] Comment on above: Order Comment: Speci men Type: BLOOD SPECIMENOrdering Facility: [facility] Address: [address] [place] [address] Performed By: #### 5 7021-8 ####[facility] LABCLIA [id number] [place] [address] [place] Nucleated RBC (Bld) [#/Vol] 10*3/uL Normal <0.01 [facility] Comment on above: Order Comment: Speci men Type: BLOOD SPECIMENOrdering Facility: [facility] Address: [address] [place] [address] Performed By: #### 5 7021-8 ####[facility] LABCLIA [id number] [place] [address] [place] Nucleated RBC/100 WBC (Bld) [Ratio] 0.0 /100 WBC Normal [facility] Comment on above: Order Comment: Speci men Type: BLOOD SPECIMENOrdering Facility: [facility] Address: [address] [place] [address] Performed By: #### 5 7021-8 ####[facility] LABCLIA [id number] [place] [address] [place] Platelet mean volume (Bld) [Entitic vol] 10.4 fL Normal 9.0-12.7 [facility] Comment on above: Order Comment: Speci men Type: BLOOD SPECIMENOrdering Facility: [facility] Address: [address] [place] [address] Performed By: #### 5 7021-8 ####[facility] LABCLIA [id number] [place] [address] [place] Platelets (Bld) [#/Vol] 194 10*3/uL Normal 150-400 [facility] Comment on above: Order Comment: Speci men Type: BLOOD SPECIMENOrdering Facility: [facility] Address: [address] [place] [address] Performed By: #### 5 7021-8 ####[facility] LABCLIA [id number] [place] [address] [place] RBC (Bld) [#/Vol] 4.11 10*6/uL Normal 3.90-5.20 [facility] Comment on above: Order Comment: Speci men Type: BLOOD SPECIMENOrdering Facility: [facility] Address: [address] [place] [address] Performed By: #### 5 7021-8 ####[facility] LABIA [id number] [place] [address] [place] WBC (Bld) [#/Vol] 7.18 10*3/uL Normal 3.70-11.00 [facility] Comment on above: Order Comment: Speci men Type: BLOOD SPECIMENOrdering Facility: [facility] Address: [address] [place] [address] Performed By: #### 5 7021-8 ####[facility] LABIA [id number] [place] [address] [place] CONSULT PROGon 10-17-2023 CONSULT PROG HNO ID: [id number] Author: BENNY STINSON RPh Service: Pharmacy Author Type: Pharmacist Type: Consult Progress Note Filed: 10/17/2023 15:18 Note Text: PHARMACY PROGRESS NOTE Patient Name: Jesús Nolan Admission Date: 10/17/2023 Date of Consult: 10/17/2023 Time of Consult: 3:17 PM In accordance with the pharmacy dose optimization service, the following medication changes have been made: Medication Dose Frequency Indication Assessment/Plan Ampicillin/sulbactam 3g q6h empiric Order has been modified to standard dosing based on the patient's estimated renal function: CrCl 15.1 Medications opted-in to the pharmacy dose optimization service (From admission, onward) Start Ordered 10/17/23 1430 ampicillin-sulbactam iv piggyback 3 g in NaCl 0.9% 100 mL Vial-Bag (UNASYN) EVERY 6 HOURS Question Answer Comment Antimicrobial indication Empiric Pharmacist may modify dose per [facility] dose optimization consult agreement Yes 10/17/23 1300 For medications which dose is dependent on renal function, a pharmacist will monitor renal function daily and adjust doses accordingly. Any dose adjustments needed based on changes in indication will require an LIP to enter a new order. Managing Pharmacist: Benny Stinson RPh, available at: [email or web address] If you have any questions, please contact Pharmacy at [phone]. Estimated Creatinine Clearance: 15.1 mL/min (A) (based on SCr of 2.11 mg/dL (H)). Serum creatinine and eGFR results 72 hours 10/17/2023 2:00 PM SCr (mg/dL) 2.11 eGFR (mL/min/1.73m2) 22 Allergies: ALLERGIES No Known Allergies Last 3 Encounter Wt Readings: Date: Wt: 09/23/2023 0 kg () 09/08/2023 57 kg (125 lb 10.6 oz) Last 1 Encounter Ht Readings: Date: Ht: 09/23/2023 0 cm (0') Temp (24hrs), Av.6 ?C (97.9 ?F), Min:36.6 ?C (97.9 ?F), Max:36.6 ?C (97.9 ?F) - Current Temp: 36.6 ?C (97.9 ?F) Benny Stinson [facility] October 17, 2023 3:17 PM Normal [facility] HISTORY PHYSICALon HISTORY PHYSICAL HNO ID: [id number] Author: RICCO GARLAND MD Service: Urology Author Type: Physician Type: H&P Filed: 10/17/2023 13:33 Note Text: UROLOGY SERVICE HISTORY AND PHYSICAL NOTE PATIENT NAME: Jesús Nolan October 17, 2023 ASSESSMENT AND PLAN Jesús Nolan is a 88 year old female with PMH notable for HTN, GERARDO, anemia of chronic disease, CKD and left staghorn calculus, recurrent UTIs, pre-admitted for antibiotics prior to PCNL. -Admit to urology -Admit labs, urine culture -Ok for diet, NPO at midnight -No dvt ppx -Will start on unasyn -Continue home meds, hold home benzo Discussed with Dr. Dada Thomas MD Resident PGY-2 Urology [facility] [place] [facility] Pager [phone] For weekend or after hours issues [place] [phone] 11:03 AM 10/17/2023 HPI Jesús Nolan is a 88 year old female with PMH notable for HTN, GERARDO, anemia of chronic disease, CKD and left staghorn calculus, recurrent UTIs, pre-admitted for antibiotics prior to PCNL. On admission, afebrile VSS. States some intermittent left flank pain, last a week ago. Denies present flank pain, dysuria, hematuria, fever, chills. Overall feeling well. Patient is hard of hearing, her family accompanies her and helps communicate for her. CT 08/31/23 demonstrates 4.1cm left staghorn stone HU 655. Urological review of systems reveals the patient has had two prior ureteroscopies for stones. Endorses recurrent UTIs. - PAST MEDICAL HISTORY Diagnosis Date Stage 4 chronic kidney disease (HCC) 04/12/2021 Stage 4 chronic kidney disease (HCC) 04/12/2021 No past surgical history on file. No family history on file. Social History Tobacco Use Smoking status: Never Smokeless tobacco: Never Substance Use Topics Alcohol use: Never Drug use: Never MEDICATIONS: Prior to Admission Medications: amoxicillin (AMOXIL) 250 mg capsuleTake 1 capsule by mouth three times a day.Disp: 90 capsuleRfl: 1 VITAMIN C 500 mg tabletDisp: Rfl: busPIRone (BUSPAR) 10 mg tabletDisp: Rfl: calcitriol (ROCALTROL) 0.25 mcg capsuleTake 0.25 mcg by mouth.Disp: Rfl: calcium acetate (CALPHRON) 667 mg tabletDisp: Rfl: docusate sodium (COLACE) 100 mg capsuleTake 100 mg by mouth.Disp: Rfl: ferrous sulfate 325 mg (65 mg iron) tabletDisp: Rfl: furosemide (LASIX) 20 mg tabletTake 20 mg by mouth.Disp: Rfl: hydrALAZINE (APRESOLINE) 25 mg tabletTake 25 mg by mouth.Disp: Rfl: LORazepam (ATIVAN) 0.5 mgTake 0.5 mg by mouth every 6 hours as needed.Disp: Rfl: melatonin 10 mg ODTDisp: Rfl: polyethylene glycol 3350 17 gram packetTake 17 g by mouth.Disp: Rfl: pravastatin (PRAVACHOL) 10 mg tabletTake 10 mg by mouth.Disp: Rfl: verapamil SR (CALAN SR) 180 mg CR tabletTake 180 mg by mouth.Disp: Rfl: diclofenac (VOLTAREN) 1 % topical gelDisp: Rfl: HYDROcodone-Acetaminop hen (NORCO) 10-325 mg per tabletDisp: Rfl: lactulose 10 gram/15 mL solutionDisp: Rfl: (Patient not taking: Reported on 09/23/2023) HIGH POTENCY MULTIVITAMIN 400 mcgDisp: Rfl: estradiol (ESTRACE) 0.01 % (0.1 mg/gram) vaginal creamUse 1 g vaginally one time a week.Disp: 42 gRfl: 1 No current facility-administered medications for this encounter. ALLERGIES: Patient has no known allergies. COMPLETE REVIEW OF SYSTEMS: REVIEW OF SYSTEMS GENERAL: No weight loss, malaise or fevers RESPIRATORY: Negative for cough, hemoptysis, wheezing, COPD, dyspnea or shortness of breath CARDIOVASCULAR: Negative for chest pain, leg swelling, hypertension, CHF or palpitations GI: No nausea, vomiting, or diarrhea : See HPI HEMATOLOGY/LYMPHOLOGY: Negative for prolonged bleeding, bruising easily or swollen nodes PHYSICAL EXAM: BP 171/65 Pulse 65 Temp 36.6 ?C (97.9 ?F) (Oral) Resp 18 SpO2 99% Gen: No apparent distress, appears stated age, well-nourished, supine in hospital bed, appropriate affect Eyes: Anicteric, conjugate gaze Head/Neck: Normocephalic, atraumatic Pulmonary: Clear to auscultation bilaterally, symmetric and equal chest rise, unlabored breathing on room air. Cardiac: Regular rate and rhythm Abdomen: Soft, non-distended, non-tender : Mild left CVA tenderness, no SP tenderness. Extremities: no lower extremity edema bilaterally, well-perfused, good cap refill Neuro: Alert and oriented x 3. IMAGING: Reviewed CT Emmanuel Thomas MD October 17, 2023 11:03 AM Ricco Garland MD, FACS Director, Surgical Stone Disease, [facility] Urologic [place] [employer], [facility] [employer] Pager [phone] 10/17/2023 Normal [facility] PT panel Coag (PPP)on 2023 INR Coag (PPP) [Relative time] 1.0 {INR} Normal 0.9-1.3 [facility] Comment on above: Order Comment: Speci men Type: BLOOD SPECIMENOrdering Facility: [facility] Address: [address] [place] [address] Result Comment: Kristen min K Antagonist (VKA) Therapeutic Range: INR 2 to 3 (Target INR of 2.5) Note: For patients treated with VKA drugs, such as warfarin, the [place] [employer] 2012 Guideline recommends a therapeutic INR range of 2 to 3 (target INR of 2.5). This recommendation includes high-risk patients with antiphospholipid syndrome with previous arterial or venous thromboembolism, current-generation mechanical or bioprosthetic aortic heart valve replacement. Note: Patients with mechanical aortic valve replacement and additional risk factors for thromboembolic events (atrial fibrillation, previous thromboembolism, LV dysfunction, hypercoagulable conditions) or an older generation mechanical AVR (i.e., ball in-Cage) or any mechanical MVR should have a INR therapeutic range of 2.5 to 3.5 (target INR of 3). Geronimo HERNANDEZ, et al. Chest 2012, 141:7S-47S Shital RA, et al. [facility] 2017, 70: 252-289 Performed By: #### 3 4528-0 ####[facility] [id number] [place] [address] [place] PT Coag (PPP) [Time] 11.1 s Normal 9.7-13.0 [facility] Comment on above: Order Comment: Speci men Type: BLOOD SPECIMENOrdering Facility: [facility] Address: [address] [place] [address] Performed By: #### 3 4528-0 ####[facility] [id number] [place] [address] [place] CNPIrma 10-06-2023 CNPN Telephone (URON) JESÚS NOLAN ([id number]) 1935 F Date Time Provider Department 10/06/23 LETY GARCIA During your visit today, we recorded the following information about you: Lety Garcia RN 10/06/2023 12:04 PM Signed ----- Message from Fanny Nagel President Sales And Marketing II sent at 10/06/2023 10:22 AM EST ----- Regarding: discuss abx for UTI prior to surgery Contact: Hi! Pt's daughter, Maranda, has a few questions and would like to discuss abx for UTI prior to surgery w/ Dr. Garland on 10/18 if someone could please reach out to her when possible. Thanks so much, Lety Alvarado RN 10/06/2023 12:18 PM Signed Returned call to speak with daughter. Daughter explained that patient had new urine done this week with her [facility] nephrology team, showing a UTI. They wanted Dr. Garland's input prior to treating since surgery is coming up and patient is supposed to start Keflex Wednesday. Patient was in the hospital twice in August for UTIs so daughter is concerned about getting her treated right away. She said patent has been weaker the past two days, is experiencing lower abdominal pain, and is starting to mildly hallucinate/ see things on the wall. She said these are typical UTI signs for patient and that the hallucinations usually get much worse over time with the infection. Provided daughter with our fax number and she is going to have the urine results sent to our office so that we can review and treat appropriately. MARYJANE Pulido Samantha, RN 10/07/2023 3:22 PM Signed Called daughter back to explain that we received urine results and Dr. Garland changed antibiotic to amoxicillin 250 mg tid and gave enough to get through surgery. Daughter voiced understanding, will pick it up, and take it to facility that patient is at. Lety Garcia RN Allergies As of Date: 10/06/2023 (No Known Allergies) Date Reviewed: 09/23/2023 Reviewed by: Stefanie Ocampo APRN.JACKAROO, DNP - Fully Assessed Reason for Visit: Patient Update [1234] Prescriptions as of 10/07/2023 - amoxicillin (AMOXIL) 250 mg capsule Take 1 capsule by mouth three times a day. - VITAMIN C 500 mg tablet - [...] a week. Problem List As Of Date 10/06/2023 Noted Resolved Abnormal urinalysis [R82.90] 09/07/2023 History [...] Pre-op evaluation [Z01.818] 09/23/2023 Encounter Status:Closed by LETY GARCIA on 10/07/23 Normal [facility] CNPNon 09-29-2023 CNPN Telephone (UROLMN) OVIDIOJESÚS ([id number]) 1935 F Date Time Provider Department 09/29/23 [...] Chaudhari RN September 29, 2023 11:20 AM Moni Chaudhari RN 09/30/2023 9:06 AM Signed Called patients daughter Maranda again to inform her of the antibiotic. No answer. Only phone number listed in patients chart. Moni Chaudhari RN September 30, 2023 9:05 AM Moni Chaudhari RN 10/01/2023 9:29 AM Signed Called and spoke with patients daughter and MARQUIS Low. Informed her that Dr. Garland has ordered Keflex to start 1 week prior to patients scheduled surgery. Informed her that this was sent to [facility] in [place] and patient should be sure to begin about 1 week prior and no sooner as it would select for resistant bacteria. Patients daughter voiced understanding. Provided office number if questions arise. Moni Chaudhari RN October 01, 2023 9:29 AM Allergies As of Date: 09/29/2023 (No Known Allergies) Date Reviewed: 09/23/2023 Reviewed by: Stefanie Ocampo, GLORIA.JACKAROO, DNP - Fully Assessed Reason for Visit: Results [95] Prescriptions as of 10/01/2023 - cephALEXin (KEFLEX) 250 mg capsule Take [...] Status:Closed by MONI CHAUDHARI on 09/29/23 Normal [facility] Bacteria Ur Culton Bacteria identified Cx Nom (U) ORGANISM ID: [...] , Intermediate >32 , Resistant >64 Abnormal [facility] Comment on above: Performed By: #### 6 30-4 ####[facility] LABIA [id number] [place] [address] [place] CBC W Auto Differential pane l (Bld)on 09-23-2023 Basophils (Bld) [#/Vol] 10*3/uL Normal <0.11 C [facility] Comment on above: Order Comment: Speci men Type: BLOOD SPECIMENOrdering Facility: [facility] Address: [address] [place] [address] Performed By: #### 5 7021-8 ####[facility] LABIA [id number] [place] [address] [place] Basophils/100 WBC (Bld) 0.3 % Normal [facility] Comment on above: Order Comment: Speci men Type: BLOOD SPECIMENOrdering Facility: [facility] Address: [address] [place] [address] Performed By: #### 5 7021-8 ####[facility] LABCLIA [id number] [place] [address] [place] Differential cell count method Nom (Bld) Auto Normal [facility] Comment on above: Order Comment: Speci men Type: BLOOD SPECIMENOrdering Facility: [facility] Address: [address] [place] [address] Performed By: #### 5 7021-8 ####[facility] LABCLIA [id number] [place] [address] [place] Eosinophils (Bld) [#/Vol] 0.16 10*3/uL Normal <0.46 [facility] Comment on above: Order Comment: Speci men Type: BLOOD SPECIMENOrdering Facility: [facility] Address: [address] [place] [address] Performed By: #### 5 7021-8 ####[facility] LABCLIA [id number] [place] [address] [place] Eosinophils/100 WBC (Bld) 2.2 % Normal [facility] Comment on above: Order Comment: Speci men Type: BLOOD SPECIMENOrdering Facility: [facility] Address: [address] [place] [address] Performed By: #### 5 7021-8 ####[facility] LABCLIA [id number] [place] [address] [place] Erythrocyte distribution width (RBC) [Ratio] 14.0 % Normal 11.5-15.0 [facility] Comment on above: Order Comment: Speci men Type: BLOOD SPECIMENOrdering Facility: [facility] Address: [address] [place] [address] Performed By: #### 5 7021-8 ####[facility] LABCLIA [id number] [place] [address] [place] Hematocrit (Bld) [Volume fraction] 39.8 % Normal 36.0-46.0 [facility] Comment on above: Order Comment: Speci men Type: BLOOD SPECIMENOrdering Facility: [facility] Address: [address] [place] [address] Performed By: #### 5 7021-8 ####[facility] LABIA [id number] [place] [address] [place] Hemoglobin (Bld) [Mass/Vol] 12.6 g/dL Normal 11.5-15.5 [facility] Comment on above: Order Comment: Speci men Type: BLOOD SPECIMENOrdering Facility: [facility] Address: [address] [place] [address] Performed By: #### 5 7021-8 ####[facility] LABIA [id number] [place] [address] [place] Immature granulocytes (Bld) [#/Vol] 10*3/uL Normal <0.10 [facility] Comment on above: Order Comment: Speci men Type: BLOOD SPECIMENOrdering Facility: [facility] Address: [address] [place] [address] Performed By: #### 5 7021-8 ####[facility] LABIA [id number] [place] [address] [place] Immature granulocytes/100 WBC (Bld) 0.1 % Normal [facility] Comment on above: Order Comment: Speci men Type: BLOOD SPECIMENOrdering Facility: [facility] Address: [address] [place] [address] Performed By: #### 5 7021-8 ####[facility] LABIA [id number] [place] [address] [place] Lymphocytes (Bld) [#/Vol] 2.33 10*3/uL Normal 1.00-4.00 [facility] Comment on above: Order Comment: Speci men Type: BLOOD SPECIMENOrdering Facility: [facility] Address: [address] [place] [address] Performed By: #### 5 7021-8 ####[facility] LABCLIA [id number] [place] [address] [place] Lymphocytes/100 WBC (Bld) 31.4 % Normal [facility] Comment on above: Order Comment: Speci men Type: BLOOD SPECIMENOrdering Facility: [facility] Address: [address] [place] [address] Performed By: #### 5 7021-8 ####[facility] LABIA [id number] [place] [address] [place] MCH (RBC) [Entitic mass] 31.7 pg Normal 26.0-34.0 [facility] Comment on above: Order Comment: Speci men Type: BLOOD SPECIMENOrdering Facility: [facility] Address: [address] [place] [address] Performed By: #### 5 7021-8 ####[facility] LABIA [id number] [place] [address] [place] MCHC (RBC) [Mass/Vol] 31.7 g/dL Normal 30.5-36.0 [facility] Comment on above: Order Comment: Speci men Type: BLOOD SPECIMENOrdering Facility: [facility] Address: [address] [place] [address] Performed By: #### 5 7021-8 ####[facility] LABIA [id number] [place] [address] [place] MCV (RBC) [Entitic vol] 100.3 fL High 80.0-100.0 C [facility] Comment on above: Order Comment: Speci men Type: BLOOD SPECIMENOrdering Facility: [facility] Address: [address] [place] [address] Performed By: #### 5 7021-8 ####[facility] LABIA [id number] [place] [address] [place] Monocytes (Bld) [#/Vol] 0.77 10*3/uL Normal <0.87 [facility] Comment on above: Order Comment: Speci men Type: BLOOD SPECIMENOrdering Facility: [facility] Address: [address] [place] [address] Performed By: #### 5 7021-8 ####[facility] LABCLIA [id number] [place] [address] [place] Monocytes/100 WBC (Bld) 10.4 % Normal [facility] Comment on above: Order Comment: Speci men Type: BLOOD SPECIMENOrdering Facility: [facility] Address: [address] [place] [address] Performed By: #### 5 7021-8 ####[facility] LABCLIA [id number] [place] [address] [place] Neutrophils (Bld) [#/Vol] 4.14 10*3/uL Normal 1.45-7.50 [facility] Comment on above: Order Comment: Speci men Type: BLOOD SPECIMENOrdering Facility: [facility] Address: [address] [place] [address] Performed By: #### 5 7021-8 ####[facility] LABCLIA [id number] [place] [address] [place] Neutrophils/100 WBC (Bld) 55.6 % Normal [facility] Comment on above: Order Comment: Speci men Type: BLOOD SPECIMENOrdering Facility: [facility] Address: [address] [place] [address] Performed By: #### 5 7021-8 ####[facility] LABCLIA [id number] [place] [address] [place] Nucleated RBC (Bld) [#/Vol] 10*3/uL Normal <0.01 [facility] Comment on above: Order Comment: Speci men Type: BLOOD SPECIMENOrdering Facility: [facility] Address: [address] [place] [address] Performed By: #### 5 7021-8 ####[facility] LABCLIA [id number] [place] [address] [place] Nucleated RBC/100 WBC (Bld) [Ratio] 0.0 /100 WBC Normal [facility] Comment on above: Order Comment: Speci men Type: BLOOD SPECIMENOrdering Facility: [facility] Address: [address] [place] [address] Performed By: #### 5 7021-8 ####[facility] LABCLIA [id number] [place] [address] [place] Platelet mean volume (Bld) [Entitic vol] 10.3 fL Normal 9.0-12.7 [facility] Comment on above: Order Comment: Speci men Type: BLOOD SPECIMENOrdering Facility: [facility] Address: [address] [place] [address] Performed By: #### 5 7021-8 ####[facility] LABIA [id number] [place] [address] [place] Platelets (Bld) [#/Vol] 228 10*3/uL Normal 150-400 [facility] Comment on above: Order Comment: Speci men Type: BLOOD SPECIMENOrdering Facility: [facility] Address: [address] [place] [address] Performed By: #### 5 7021-8 ####[facility] LABIA [id number] [place] [address] [place] RBC (Bld) [#/Vol] 3.97 10*6/uL Normal 3.90-5.20 [facility] Comment on above: Order Comment: Speci men Type: BLOOD SPECIMENOrdering Facility: [facility] Address: [address] [place] [address] Performed By: #### 5 7021-8 ####[facility] LABCLIA [id number] [place] [address] [place] WBC (Bld) [#/Vol] 7.43 10*3/uL Normal 3.70-11.00 [facility] Comment on above: Order Comment: Speci men Type: BLOOD SPECIMENOrdering Facility: [facility] Address: [address] [place] [address] Performed By: #### 5 7021-8 ####[facility] LABCLIA [id number] [address] [place] CONFIRM BLOOD TYPEon 023 ABO A Normal [facility] Comment on above: Order Comment: Speci men Type: BLOOD SPECIMENOrdering Facility: [facility] Address: [address] [place] [address] Performed By: #### C ONABO ####[facility] BLOOD BANKIA [id number] [place] [address] [place] Rh Nom (Bld) Positive Normal [facility] Comment on above: Order Comment: Speci men Type: BLOOD SPECIMENOrdering Facility: [facility] Address: [address] [place] [address] Performed By: #### C ONABO ####[facility] BLOOD BANKCLIA [id number] [place] [address] [place] Comprehensive metabolic 2000 panelon 09-23-2023 Albumin [Mass/Vol] 4.3 g/dL Normal 3.9-4.9 [facility] Comment on above: Order Comment: Speci men Type: BLOOD SPECIMENOrdering Facility: [facility] Address: [address] [place] [address] Performed By: #### 2 4323-8 ####[facility] LABCLIA [id number] [place] [address] [place] ALP [Catalytic activity/Vol] 96 U/L Normal 34-123 [facility] Comment on above: Order Comment: Speci men Type: BLOOD SPECIMENOrdering Facility: [facility] Address: [address] [place] [address] Performed By: #### 2 4323-8 ####[facility] LABCLIA [id number] [address] [address] [place] ALT [Catalytic activity/Vol] 17 U/L Normal 7-38 [facility] Comment on above: Order Comment: Speci men Type: BLOOD SPECIMENOrdering Facility: [facility] Address: [address] [place] [address] Performed By: #### 2 4323-8 ####[facility] LABCLIA [id number] [place] [address] [place] Anion gap [Moles/Vol] 15 mmol/L Normal 9-18 [facility] Comment on above: Order Comment: Speci men Type: BLOOD SPECIMENOrdering Facility: [facility] Address: [address] [place] [address] Performed By: #### 2 4323-8 ####[facility] LABCLIA [id number] [place] [address] [place] AST [Catalytic activity/Vol] 22 U/L Normal 13-35 [facility] Comment on above: Order Comment: Speci men Type: BLOOD SPECIMENOrdering Facility: [facility] Address: [address] [place] [address] Performed By: #### 2 4323-8 ####[facility] LABCLIA [id number] [place] [address] [place] Bilirubin [Mass/Vol] 0.3 mg/dL Normal 0.2-1.3 [facility] Comment on above: Order Comment: Speci men Type: BLOOD SPECIMENOrdering Facility: [facility] [place] Address: [address] [place] [address] Performed By: #### 2 4323-8 ####[facility] LABCLIA [id number] [place] [address] [place] Calcium [Mass/Vol] 9.4 mg/dL Normal 8.5-10.2 [facility] Comment on above: Order Comment: Speci men Type: BLOOD SPECIMENOrdering Facility: [facility] Address: [address] [place] [address] Performed By: #### 2 4323-8 ####[facility] LABCLIA [id number] [place] [address] [place] Chloride [Moles/Vol] 103 mmol/L Normal 97-105 [facility] Comment on above: Order Comment: Speci men Type: BLOOD SPECIMENOrdering Facility: [facility] Address: [address] [place] [address] Performed By: #### 2 4323-8 ####[facility] LABCLIA [id number] [place] [address] [place] CO2 [Moles/Vol] 26 mmol/L Normal 22-30 [facility] Comment on above: Order Comment: Speci men Type: BLOOD SPECIMENOrdering Facility: [facility] Address: [address] [place] [address] Performed By: #### 2 4323-8 ####[facility] LABCLIA [id number] [place] [address] [place] Creatinine [Mass/Vol] 2.05 mg/dL High 0.58-0.96 [facility] Comment on above: Order Comment: Speci men Type: BLOOD SPECIMENOrdering Facility: [facility] Address: [address] [place] [address] Performed By: #### 2 4323-8 ####[facility] LABCLIA [id number] [place] [address] [place] Creatinine and Glomerular filtration rate.predicted panel (S/P/Bld) 23 mL/min/1.73m??? Low >=60 [facility] Comment on above: Order Comment: Speci men Type: BLOOD SPECIMENOrdering Facility: [facility] Address: [address] [place] [address] Result Comment: Melissa mated Glomerular Filtration Rate [...] actual GFR. Performed By: #### 2 4323-8 ####[facility] LABCLIA [id number] [place] [address] [place] Glucose [Mass/Vol] 107 mg/dL High 74-99 [facility] Comment on above: Order Comment: Lalo mclaughlin Type: BLOOD SPECIMENOrdering Facility: [facility] Address: [address] [place] [address] Result Comment: The [place] Diabetes Association (ADA) provides guidance for cutoff [...] Standards of Medical Care in Diabetes 2016, [place] [employer]. Diabetes Care. 2016.39(Suppl 1). Performed By: #### 2 4323-8 ####[facility] LABIA [id number] [place] [id number] [place] Potassium [Moles/Vol] 4.0 mmol/L Normal 3.7-5.1 [facility] Comment on above: Order Comment: Lalo mclaughlin Type: BLOOD SPECIMENOrdering Facility: [facility] Address: [address] [place] [address] Performed By: #### 2 4323-8 ####[facility] LABCLIA [id number] [place] [id number] [place] Protein [Mass/Vol] 7.0 g/dL Normal 6.3-8.0 [facility] Comment on above: Order Comment: Speci men Type: BLOOD SPECIMENOrdering Facility: [facility] Address: [address] [place] [address] Performed By: #### 2 4323-8 ####[facility] LABCLIA [id number] [place] [address] [place] Sodium [Moles/Vol] 144 mmol/L Normal 136-144 [facility] Comment on above: Order Comment: Speci men Type: BLOOD SPECIMENOrdering Facility: [facility] Address: [address] [place] [address] Performed By: #### 2 4323-8 ####[facility] LABCLIA [id number] [place] [address] [place] Urea nitrogen [Mass/Vol] 30 mg/dL High 7-21 [facility] Comment on above: Order Comment: Speci men Type: BLOOD SPECIMENOrdering Facility: [facility] Address: [address] [place] [address] Performed By: #### 2 4323-8 ####[facility] LABIA [id number] [place] [address] [place] ECG COMPLETEon 09-23-2023 ECG COMPLETE Ventricular Rate : 6 2 BPM Atrial Rate : 62 BPM P-R Interval : 202 ms QRS Duration : 90 ms Q-T Interval : 424 ms QTC Calculation(Bazett) : 430 ms Calculated P Girdler : 100 degrees Calculated R Girdler : -29 degrees Calculated T Girdler : 17 degrees NORMAL SINUS RHYTHM LEFT VENTRICULAR HYPERTROPHY POSSIBLE ANTEROSEPTAL MYOCARDIAL INFARCTION , 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 ECG Confirmed by MITZI PACHECO MD ([id number]) on 10/13/2023 8:12:00 AM NAME : JESÚS NOLAN PID : [id number] : 1935 Gender : Female Race : ORD : [id number] Procedure Date : Sep 23 2023 15:23:33 Edit Date : Oct 13 2023 08:13:43 Diagnosis: NORMAL SINUS RHYTHM LEFT VENTRICULAR HYPERTROPHY POSSIBLE ANTEROSEPTAL MYOCARDIAL INFARCTION , 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 ECG Confirmed by MITZI PACHECO MD ([id number]) on 10/13/2023 8:12:00 AM Test Reason : BEST POSSIBLE Location : 119 : A17 A17 Overread By : MITZI PACHECO MD Edited By : MITZI PACHECO MD Referred By : STEFANIE OCAMPO Acquired by : VERONIKA CONWAY Normal [facility] ECG COMPLETE Ventricular Rate : 7 5 BPM Atrial Rate : 75 BPM QRS Duration : 108 ms Q-T Interval : 410 ms QTC Calculation(Bazett) : 457 ms Calculated R Girdler : -32 degrees Calculated T Girdler : 97 degrees 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 , 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 ECG Reconfirmed by KIAN CLARK MD ([id number]) on 09/23/2023 8:45:27 PM NAME : JESÚS NOLAN PID : [id number] : 1935 Gender : Female Race : ORD : [id number] Procedure Date : Sep 23 2023 12:56:29 Edit Date : Sep 23 2023 20:45:28 Diagnosis: 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 , 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 ECG Reconfirmed by KIAN CLARK MD ([id number]) on 09/23/2023 8:45:27 PM Test Reason : Location : 119 : A17 Overread By : KIAN CLARK MD Edited By : KIAN CLARK MD Referred By : , Acquired by : SANTI TAVERA [facility] HISTORY PHYSICALon HISTORY PHYSICAL HNO ID: [id number] Author: STEFANIE OCAMPO APRN.JACKAROO, DNP Service: ? Author Type: Nurse Practitioner Type: H&P Filed: 10/05/2023 13:23 Note Text: HISTORY AND PHYSICAL EXAMINATION SERVICE DATE: 09/23/2023 SERVICE TIME: 1:22 PM PRIMARY CARE PHYSICIAN: Brina Cordero MD Assessment [...] - follows with nephrology. Managed with Las[facility]. BMP Latest Ref Rng AND Units 09/23/2023 [...] 35 kg/m2 Non-male patient STOP-Bang Score: 1 [id number] Score: Hypertension history: Yes [id number] Score: 1 ARISCAT Score: Age: >80 Preoperative [...] Post Procedure Analgesic Plan REASON FOR VISIT: Jesús Nolan is a 88 year old female [...] topic. CHIEF COMPLAINT: preop evaluation HPI: Mr. Jesús Nolan is a 88 year old female with left staghorn calculus who presents to [facility] today for preop exam. She reports intermittent LEFT flank pain and frequent UTIs. Patient is scheduled for the above procedure on 10/18/2022. Denies fevers, chills, chest pain, and SOB. REVIEW OF SYSTEMS: General: No weight loss, malaise or fevers. Neurological: No history of TIA's, stroke, [employer] SALES [employer]ESSION[employer] tumor, impaired sensorium, hemiplegia, paraplegia or quadraplegia. No neurological symptoms or problems. Respiratory: No history of current cough or dyspnea, or pneumonia in the past 6 weeks. No history of respiratory/pulmonary symptoms or problems. Cardiovascular: Positive for: hypertension (on rx) Negative for: abdominal aortic aneurysm, AICD/PPM, anticoagulation (more content not included)... Normal [facility] TYPE AND SCREEN,30 [place] 12- 28-2023 ABO A Normal [facility] Comment on above: Order Comment: Speci men Type: BLOOD SPECIMENOrdering Facility: [facility] Address: [address] [place] [address] Performed By: #### T [id number] ####[facility] BLOOD BANKCLIA [id number] [place] [address] [place] HISTORICAL AB SCR STATUS Negative Normal [facility] Comment on above: Order Comment: Speci men Type: BLOOD SPECIMENOrdering Facility: [facility] Address: [address] [place] [address] Performed By: #### T SCR30 ####[facility] BLOOD BANKIA [id number] [address] [place] Rh Nom (Bld) Positive Normal [facility] Comment on above: Order Comment: Speci men Type: BLOOD SPECIMENOrdering Facility: [facility] Address: [address] [place] [address] Performed By: #### T SCR30 ####[facility] BLOOD BANKCLIA [id number] [place] [address] [place] Consultation Noteon 09-12-20 23 Consultation Note [id number]#1.0 0TIFF Normal [facility] Bacteria Ur Culton 3 Bacteria identified Cx Nom (U) CULTURE, URINE: No growth (<1,000 CFU/ml) Normal [facility] Comment on above: Performed By: #### 6 30-4 ####[facility] LABCLIA [id number] [address] [place] CNOVon 09-07-2023 CNOV Office Visit (UROLMN ) JESÚS NOLAN ([id number]) 1935 F Date Time Provider Department 09/07/23 10:00 AM RICCO [facility]AR[facility] During your visit today, we recorded the following information about you: Pulse Blood pressure 57/minute 167/67 Ricco Garland MD 09/07/2023 7:45 PM Signed STAFF UROLOGY NOTE: We had the pleasure of seeing Jesús Nolan in our [facility] today. She is with her daughter who did nearly all the talking since the patient's hearing aids are broken and she has not yet received new ones, so she could hardly hear me. Though not listed in EPIC, patient's daughter indicates Dr. Harsh Clayton recommended [...] based on size, location, hounsfield units and lmqz-fm-zmcwl distance: 0% 3. Ureteroscopy - risks of [...] with more than 50% of the total pcge-ov-igdi time of the visit devoted to patient counseling/coordinatio n of care. Ricco Garland MD, FACS Director, Surgical Stone Disease, [facility] Urologic [place] [employer] worker, [facility] Pager [phone] 09/07/2023 Referring Provider: SELF [200] Allergies As of Date: 09/07/2023 (No Known Allergies) Date Reviewed: 09/07/2023 Reviewed by: Karen Calvillo OCCA - Fully Assessed Primary Visit Diagnosis:Staghorn calculus [N20.0] Other Visit Diagnoses:Abnormal urinalysis [R82.90] History of recurrent UTIs [Z87.440] Essential hypertension [I10] Constipation, unspecified constipation type [K59.00] Arthritis [M19.90] Status post hip surgery [Z98.890] Order(s):URINE CULTURE [SQURCUL] Order #: [id number]. #:[id number] estradiol (ESTRACE) 0.01 % (0.1 mg/gram) vaginal creamUse 1 g vaginally one time a week.Disp: 42 gRfl: 1 Prescriptions (more content not included)... Normal [facility] URINALYSIS, REFLEX MICROSCOP ICon 09-07-2023 Bacteria LM.HPF (Urine sed) [#/Area] Few Abnormal None Seen [facility] Comment on above: Order Comment: Speci men Type: URINE SPECIMENOrdering Facility: [facility] Address: [address] [place] [address] Performed By: #### L [id number] ####[facility] LABCLIA [id number] [place] [address] [place] Bilirubin Ql (U) Negative Normal Negative [facility] Comment on above: Order Comment: Speci men Type: URINE SPECIMENOrdering Facility: [facility] Address: [address] [place] [address] Performed By: #### L [id number] ####[facility] LABCLIA [id number] [place] [address] [place] Clarity (Unsp spec) Clear Normal Clear [facility] Comment on above: Order Comment: Speci men Type: URINE SPECIMENOrdering Facility: [facility] Address: [address] [place] [address] Performed By: #### L [id number] ####[facility] LABCLIA [id number] [place] [address] [place] Color (U) Light Yellow Normal Yellow [facility] Comment on above: Order Comment: Speci men Type: URINE SPECIMENOrdering Facility: [facility] Address: [address] [place] [address] Performed By: #### L [id number] ####[facility] LABCLIA [id number] [place] [address] [place] Epithelial cells LM.HPF (Urine sed) [#/Area] Few Normal [facility] Comment on above: Order Comment: Speci men Type: URINE SPECIMENOrdering Facility: [facility] Address: [address] [place] [address] Performed By: #### L [id number] ####[facility] LABCLIA [id number] [place] [address] [place] Glucose Test strip (U) [Mass/Vol] Negative Normal Trace, Negative [facility] Comment on above: Order Comment: Speci men Type: URINE SPECIMENOrdering Facility: [facility] Address: [address] [place] [address] Performed By: #### L [id number] ####[facility] LABCLIA [id number] [place] [address] [place] Hemoglobin Ql (U) Negative Normal Negative, Trace [facility] Comment on above: Order Comment: Speci men Type: URINE SPECIMENOrdering Facility: [facility] Address: [address] [place] [address] Performed By: #### L [id number] ####[facility] LABCLIA [id number] [place] [address] [place] Hyaline casts (Urine sed) [#/Area] 1-3 /LPF Abnormal 0 /LPF [facility] Comment on above: Order Comment: Speci men Type: URINE SPECIMENOrdering Facility: [facility] Address: [address] [place] [address] Performed By: #### L [id number] ####[facility] LABCLIA [id number] [place] [address] [place] Ketones Ql (U) Negative Normal Negative, Trace [facility] Comment on above: Order Comment: Speci men Type: URINE SPECIMENOrdering Facility: [facility] Address: [address] [place] [address] Performed By: #### L [id number] ####[facility] LABCLIA [id number] [place] [address] [place] Leukocyte esterase Test strip Ql (U) 500 Dorian/uL Abnormal Negative, 25 Dorian/uL [facility] Comment on above: Order Comment: Speci men Type: URINE SPECIMENOrdering Facility: [facility] Address: [address] [place] [address] Performed By: #### L [id number] ####[facility] LABCLIA [id number] [place] [address] [place] Nitrite Ql (U) Negative Normal Negative [facility] Comment on above: Order Comment: Speci men Type: URINE SPECIMENOrdering Facility: [facility] Address: [address] [place] [address] Performed By: #### L [id number] ####[facility] LABCLIA [id number] [place] [address] [place] pH (U) 5.5 [pH] Normal 5.0-8.0 [facility] Comment on above: Order Comment: Speci men Type: URINE SPECIMENOrdering Facility: [facility] Address: [address] [place] [address] Performed By: #### L [id number] ####[facility] LABCLIA [id number] [place] [address] [place] Protein (U) [Mass/Vol] Trace Normal Trace , Negative [facility] Comment on above: Order Comment: Speci men Type: URINE SPECIMENOrdering Facility: [facility] Address: [address] [place] [address] Performed By: #### L [id number] ####[facility] LABCLIA [id number] [place] [address] [place] RBC LM.HPF (Urine sed) [#/Area] 3-5 /HPF Abnormal 0-3 /HPF [facility] Comment on above: Order Comment: Speci men Type: URINE SPECIMENOrdering Facility: [facility] Address: [address] [place] [address] Performed By: #### L [id number] ####[facility] LABCLIA [id number] [place] [address] [place] Specific gravity (U) [Rel density] 1.014 Normal 1.005-1.030 [facility] Comment on above: Order Comment: Speci men Type: URINE SPECIMENOrdering Facility: [facility] Address: [address] [place] [address] Performed By: #### L [id number] ####[facility] LABIA [id number] [address] [place] Urobilinogen Ql (U) Negative Normal Negative [facility] Comment on above: Order Comment: Speci men Type: URINE SPECIMENOrdering Facility: [facility] Address: [address] [place] [address] Performed By: #### L [id number] ####[facility] LABIA [id number] [place] [address] [place] WBC LM.HPF (Urine sed) [#/Area] /[HPF] Abnormal 0-5 /HPF [facility] Comment on above: Order Comment: Speci men Type: URINE SPECIMENOrdering Facility: [facility] Address: [address] [place] [address] Performed By: #### L [id number] ####[facility] LABIA [id number] [place] [address] [place] Consultation Noteon 09-06-20 Consultation Note [id number]#1.0 0TIFF Normal [facility] Consultation Noteon 09-03-20 Consultation Note [id number]#1.0 0TIFF Normal [facility] Lab Reportson 09-03-2023 Lab Reports [id number]#1.0 0TIFF Normal [facility] Basic Metabolic Panelon Anion gap [Moles/Vol] 11.2 mmol/L Normal 6.0-15.0 [facility] Comment on above: Performed By: #### EDITA Warren, CBCNO ####[facility] [address] [place] [address] [facility] Calcium [Mass/Vol] 8.0 mg/dL Low 8.6-10.3 [facility] Comment on above: Performed By: #### EDITA Warren, CBCNO ####[facility] [address] [place] [address] [facility] Chloride [Moles/Vol] 110 mmol/L High 98-107 [facility] Comment on above: Performed By: #### EDITA Warren, CBCNO ####[place] [address] [place] [address] [place] CO2 [Moles/Vol] 25.2 mmol/L Normal 21.0-31.0 [facility] Comment on above: Performed By: #### EDITA Warren, CBCNO ####[facility] [address] [place] [address] [facility] Creatinine [Mass/Vol] 2.30 mg/dL High 0.60-1.20 [facility] Comment on above: Performed By: #### EDITA Warren, CBCNO ####[facility] [address] [place] [address] [place] Creatinine Clr Calc Pharmacy 14.54 [facility] Comment on above: Performed By: #### EDITA Warren, CBCNO ####[facility] [address] [place] [address] [place] GFR/1.73 sq M.predicted MDRD (S/P/Bld) [Vol rate/Area] 20.194 mL/min/{1.73_m2} Normal [facility] Comment on above: Performed By: #### EDITA Warren, CBCNO ####[place] [address] [place] [address] [facility] Glucose [Mass/Vol] 109 mg/dL High 70-100 [facility] Comment on above: Result Comment: [place] Glucose Reference Range is dependent on time and content of last meal. Glucose of more than 200 mg/dL in a nonstressed, ambulatory subject supports the diagnosis of Diabetes Mellitus. ADA recommended reference range Performed By: #### EDITA Warren, CBCNO ####[facility] [address] [place] [address] [facility] Potassium [Moles/Vol] 4.4 mmol/L Normal 3.5-5.1 [facility] Comment on above: Performed By: #### EDITA Warren, CBCNO ####[place] [address] [place] [id number] [facility] Sodium [Moles/Vol] 142 mmol/L Normal 136-145 [facility] Comment on above: Performed By: #### EDITA Warren, CBCNO ####[place] [address] [place] [id number] [facility] Urea nitrogen [Mass/Vol] 31 mg/dL High 7-25 [facility] Comment on above: Performed By: #### EDITA Warren, CBCNO ####[place] [address] [place] [address] [facility] Hemogram CBC Without Diffon 09-02-2023 Erythrocyte distribution width (RBC) [Ratio] 14.1 % Normal 11.9-15.3 [facility] Comment on above: Performed By: #### EDITA Warren, CBCNO ####[place] [address] [place] [address] [facility] Hematocrit (Bld) [Volume fraction] 32.6 % Low 34.0-46.4 [facility] Comment on above: Performed By: #### EDITA Warren, CBCNO ####[place] [address] [place] [id number] [facility] Hemoglobin (Bld) [Mass/Vol] 10.9 g/dL Low 11.8-15.4 [facility] Comment on above: Performed By: #### EDITA Warren CBCNO ####[address] MCH (RBC) [Entitic mass] 31.6 pg Normal 24.7-34.3 [facility] Comment on above: Performed By: #### EDITA Warren CBCNO ####[address] MCV (RBC) [Entitic vol] 94.7 fL Normal 80-100 [facility] Comment on above: Performed By: #### EDITA Warren CBCNO ####[address] Mean Corpuscular HGB Conc 33.4 g/dL Normal 32.0-35.0 [facility] Comment on above: Performed By: #### EDITA Warren CBCNO ####[address] Platelet mean volume (Bld) [Entitic vol] 8.8 fL Normal 6.3-10.7 [facility] Comment on above: Result Comment: PERF ORMED BY: [facility] [address] [place] [address] PATHOLOGIST [employer] WORKER BARBARA MUNOZ M.D. Performed By: #### EDITA Warren CBCNO ####[address] Platelets (Bld) [#/Vol] 192 10*3/uL Normal 150-450 [facility] Comment on above: Performed By: #### EDITA Warren CBCNO ####[address] RBC (Bld) [#/Vol] 3.44 10*6/uL Low 3.60-5.00 [facility] Comment on above: Performed By: #### EDITA Warren CBCNO ####[address] [place] [address] [facility] WBC (Bld) [#/Vol] 7.8 10*3/uL Normal 3.8-11.6 [facility] Comment on above: Performed By: #### M EDITA Padgett, CBCNO ####[place] [id number] [facility] Magnesiumon 09-02-2023 Magnesium [Mass/Vol] 2.5 mg/dL Normal 1.9-2.7 [facility] Comment on above: Result Comment: PERF ORMED BY: [facility] [address] [place] [address] PATHOLOGIST [employer] WORKER BARBARA MUNOZ M.D. Performed By: #### M EDITA Padgett CBCNO ####[place] [id number] [facility] Ammoniaon 09-01-2023 Ammonia (P) [Moles/Vol] 23 umol/L Normal 11-35 [facility] Comment on above: Result Comment: PERF ORMED BY: [facility] [address] [place] [address] PATHOLOGIST [employer] WORKER BARBARA MUNOZ M.D. Performed By: #### A MM ####[place] [id number] [facility] Basic Metabolic Panelon 12-0 Anion gap [Moles/Vol] 11.9 mmol/L Normal 6.0-15.0 [facility] Comment on above: Performed By: #### V [id number], MG, CBC, BMP, TSH3 ####[place] [id number] [facility] Calcium [Mass/Vol] 8.4 mg/dL Low 8.6-10.3 [facility] Comment on above: Performed By: #### V [id number], MG, CBC, BMP, TSH3 ####[place] [id number] [facility] Chloride [Moles/Vol] 111 mmol/L High 98-107 [facility] Comment on above: Performed By: #### V [id number], MG, CBC, BMP, TSH3 ####[place] [address] [place] [id number] [facility] CO2 [Moles/Vol] 23.2 mmol/L Normal 21.0-31.0 [facility] Comment on above: Performed By: #### V [id number], MG, CBC, BMP, TSH3 ####[place] [id number] [facility] Creatinine [Mass/Vol] 2.45 mg/dL High 0.60-1.20 [facility] Comment on above: Performed By: #### V [id number], MG, CBC, BMP, TSH3 ####[address] Creatinine Clr Calc Pharmacy 13.65 [facility] Comment on above: Performed By: #### V [id number], MG, CBC, BMP, TSH3 ####[address] GFR/1.73 sq M.predicted MDRD (S/P/Bld) [Vol rate/Area] 18.720 mL/min/{1.73_m2} [facility] Comment on above: Performed By: #### V [id number], MG, CBC, BMP, TSH3 ####[place] [id number] [facility] Glucose [Mass/Vol] 90 mg/dL Normal 70-100 [facility] Comment on above: Result Comment: [facility] Glucose Reference Range is dependent on time and content of last meal. Glucose of more than 200 mg/dL in a nonstressed, ambulatory subject supports the diagnosis of Diabetes Mellitus. ADA recommended reference range Performed By: #### V [id number], MG, CBC, BMP, TSH3 ####[place] [id number] [facility] Potassium [Moles/Vol] 4.1 mmol/L Normal 3.5-5.1 [facility] Comment on above: Performed By: #### V [id number], MG, CBC, BMP, TSH3 ####[facility] [id number] [place] [address] [facility] Sodium [Moles/Vol] 142 mmol/L Normal 136-145 [facility] Comment on above: Performed By: #### V [id number], MG, CBC, BMP, TSH3 ####[facility] [place] [address] [facility] Urea nitrogen [Mass/Vol] 28 mg/dL High 7-25 [facility] Comment on above: Performed By: #### V [id number], MG, CBC, BMP, TSH3 ####[place] [address] [place] [address] [facility] Blood Cultureon 09-01-2023 Bacteria identified Cx Nom (Bld) PT IS BEING MEDICATED NO GROWTH 5 DAYS PERFORMED BY: [place] [address] PATHOLOGIST [employer] MAINTENANCE WORKER BARBARA MUNOZ M.D. [facility] Comment on above: Performed By: #### L SARANYA FUNESLD #### [facility] [address] [place] [address] Bacteria identified Cx Nom (Bld) PT IS BEING MEDICATED NO GROWTH 5 DAYS PERFORMED BY: [place] [address] PATHOLOGIST [employer]IDGE MAINTENANCE WORKER BARBARA MUNOZ M.D. [facility] Comment on above: Performed By: #### L SARANYA FUNESLD #### [facility] [address] [place] [address] CT abdomen pelvis wo conon 1 11-02-2022 CT abdomen pelvis wo con [facility] [place] [address] [place] [address] CT Scan Report Signed Patient: Jesús Nolan MR#: [id number] [birth year] : 1935 Acct:[id number] Age/Sex: 88 / F ADM Date: 08/31/23 Loc: Room: [address] [place] [address] Type: ADM IN Attending Dr: Riky Bundy [...] Isabel Vega M.D.09/01/2023 6:29 AM Dictation Location: [place] [address] Transcribed By: [facility] 09/01/23 0629 Dictated By: Isabel Vega MD 09/01/23622 Signed By: 09/01/2329 [facility] CT head/brain wo conon 09-01 CT head/brain wo con [facility] [place] [address] CT Scan Report Signed Patient: Jesús Nolan MR#: [id number] [birth year] : 1935 Acct:[id number] Age/Sex: 88 / F ADM Date: 08/31/23 Loc: Room: [address] [place] [address] Type: ADM IN Attending Dr: Riky Bundy [...] Isabel Vega M.D.09/01/2023 6:14 AM Dictation Location: [place] [address] Transcribed By: [facility] 09/01/23613 Dictated By: Isabel Vega MD 09/01/23611 Signed By: 09/01/23613 [facility] Complete Blood Count Auto Di ffon 09-01-2023 Basophils (Bld) [#/Vol] 0.0 10*3/uL Normal 0.0-0.2 [facility] Comment on above: Result Comment: PERF ORMED BY: [facility] [address] [place] [address] PATHOLOGIST [employer]TE[employer] WORKER BARBARA MUNOZ M.D. Performed By: #### V [id number], MG, CBC, BMP, TSH3 ####[address] Basophils/100 WBC (Bld) 0.3 % Normal . [facility] Comment on above: Performed By: #### V [id number], MG, CBC, BMP, TSH3 ####[address] Eosinophils (Bld) [#/Vol] 0.1 10*3/uL Normal 0.0-0.45 [facility] Comment on above: Performed By: #### V [id number], MG, CBC, BMP, TSH3 ####[address] Eosinophils/100 WBC (Bld) 1.6 % Normal . [facility] Comment on above: Performed By: #### V [id number], MG, CBC, BMP, TSH3 ####[address] Erythrocyte distribution width (RBC) [Ratio] 14.0 % Normal 11.9-15.3 [facility] Comment on above: Performed By: #### V [id number], MG, CBC, BMP, TSH3 ####[address] Hematocrit (Bld) [Volume fraction] 35.9 % Normal 34.0-46.4 [facility] Comment on above: Performed By: #### V [id number], MG, CBC, BMP, TSH3 ####[address] Hemoglobin (Bld) [Mass/Vol] 11.9 g/dL Normal 11.8-15.4 [facility] Comment on above: Performed By: #### V [id number], MG, CBC, BMP, TSH3 ####[address] Lymphocytes (Bld) [#/Vol] 1.5 10*3/uL Normal 1.00-4.8 [facility] Comment on above: Performed By: #### V [id number], MG, CBC, BMP, TSH3 ####[address] Lymphocytes/100 WBC (Bld) 19.5 % Normal . [facility] Comment on above: Performed By: #### V [id number], MG, CBC, BMP, TSH3 ####[address] MCH (RBC) [Entitic mass] 31.2 pg Normal 24.7-34.3 [facility] Comment on above: Performed By: #### V [id number], MG, CBC, BMP, TSH3 ####[address] MCV (RBC) [Entitic vol] 94.6 fL Normal 80-100 [facility] Comment on above: Performed By: #### V [id number], MG, CBC, BMP, TSH3 ####[address] Mean Corpuscular HGB Conc 33.0 g/dL Normal 32.0-35.0 [facility] Comment on above: Performed By: #### V [id number], MG, CBC, BMP, TSH3 ####[address] Monocytes (Bld) [#/Vol] 1.0 10*3/uL High 0.0-0.8 [facility] Comment on above: Performed By: #### V [id number], MG, CBC, BMP, TSH3 ####[address] Monocytes/100 WBC (Bld) 12.4 % Normal . [facility] Comment on above: Performed By: #### V [id number], MG, CBC, BMP, TSH3 ####[address] Neutrophils (Bld) [#/Vol] 5.2 10*3/uL Normal 1.8-7.7 [facility] Comment on above: Performed By: #### V [id number], MG, CBC, BMP, TSH3 ####[address] Neutrophils/100 WBC (Bld) 66.2 % Normal . [facility] Comment on above: Performed By: #### V [id number], MG, CBC, BMP, TSH3 ####[address] NRBC% 0.0 /100{WBC} Normal 0-0.5 [facility] Comment on above: Performed By: #### V [id number], MG, CBC, BMP, TSH3 ####[address] Platelet mean volume (Bld) [Entitic vol] 8.2 fL Normal 6.3-10.7 [facility] Comment on above: Performed By: #### V [id number], MG, CBC, BMP, TSH3 ####[address] Platelets (Bld) [#/Vol] 216 10*3/uL Normal 150-450 [facility] Comment on above: Performed By: #### V [id number], MG, CBC, BMP, TSH3 ####[address] RBC (Bld) [#/Vol] 3.80 10*6/uL Normal 3.60-5.00 [facility] Comment on above: Performed By: #### V [id number], MG, CBC, BMP, TSH3 ####[address] WBC (Bld) [#/Vol] 7.8 10*3/uL Normal 3.8-11.6 [facility] Comment on above: Performed By: #### V [id number], MG, CBC, BMP, TSH3 ####[facility] [id number] Consultation Noteon 09-01-20 Consultation Note [id number] Normal [facility] Dipstick and Microscopicon 1 11-02-2022 Appearance (U) Cloudy Critically abnormal Clear [facility] Comment on above: Order Comment: Name Collection Type:: Voided Performed By: #### C UU, ADDONUAPLUS #### [address] Bacteria,Urine None Seen Normal None Seen [facility] Comment on above: Order Comment: Name Collection Type:: Voided Result Comment: PERF ORMED BY: [place] [address] PATHOLOGIST [employer]GE MAINTENANCE WORKER BARBARA MUNOZ M.D. Performed By: #### C UU, ADDONUAPLUS #### [facility] [address] [place] [address] Bilirubin,Urine Negative Normal Negative [facility] Comment on above: Order Comment: Name Collection Type:: Voided Performed By: #### C UU, ADDONUAPLUS #### [facility] [address] [place] [address] Color (U) Yellow Normal Yellow [facility] Comment on above: Order Comment: Name Collection Type:: Voided Performed By: #### C UU, ADDONUAPLUS #### [facility] [address] [place] [address] Glucose Ql (U) Normal Normal Normal [facility] Comment on above: Order Comment: Name Collection Type:: Voided Performed By: #### C UU, ADDONUAPLUS #### [facility] [address] [place] [address] [place] Ketones Ql (U) Negative Normal Negative [facility] Comment on above: Order Comment: Name Collection Type:: Voided Performed By: #### C UU, ADDONUAPLUS #### [address] Leukocyte esterase Test strip Ql (U) 4+ High Negative [facility] Comment on above: Order Comment: Name Collection Type:: Voided Performed By: #### C UU, ADDONUAPLUS #### [address] Nitrite,Urine Negative Normal Negative [facility] Comment on above: Order Comment: Name Collection Type:: Voided Performed By: #### C UU, ADDONUAPLUS #### [address] Occult Blood,Urine Trace High Negative [facility] Comment on above: Order Comment: Name Collection Type:: Voided Result Comment: PERF ORMED BY: [place] [address] PATHOLOGIST [employer]IDGE MAINTENANCE WORKER BARBARA MUNOZ M.D. Performed By: #### C UU, ADDONUAPLUS #### [address] pH (U) 6.0 [pH] Normal 5.0-9.0 [facility] Comment on above: Order Comment: Name Collection Type:: Voided Performed By: #### C UU, ADDONUAPLUS #### [place] [address] [place] Protein (U) [Mass/Vol] 30 mg/dL High Negative [facility] Comment on above: Order Comment: Name Collection Type:: Voided Performed By: #### C UU, ADDONUAPLUS #### [address] RBC,Urine 1-2 Normal 0-4 [facility] Comment on above: Order Comment: Name Collection Type:: Voided Performed By: #### C UU, ADDONUAPLUS #### [place] [address] [place] Specificy [place],Urine 1.016 Normal 1.001-1.030 [facility] Comment on above: Order Comment: Name Collection Type:: Voided Performed By: #### C UU, ADDONUAPLUS #### [facility] [address] [place] [address] Squamous Epithelial Cell,Urine 3-4 High 0-2 [facility] Comment on above: Order Comment: Name Collection Type:: Voided Performed By: #### C UU, ADDONUAPLUS #### [address] Urobilinogen,Urine Normal Normal Normal [facility] Comment on above: Order Comment: Name Collection Type:: Voided Performed By: #### C UU, ADDONUAPLUS #### [address] WBC,Urine 50-100 High 0-4 [facility] Comment on above: Order Comment: Name Collection Type:: Voided Performed By: #### C UU, ADDONUAPLUS #### [address] Lactic Acidon 09-01-2023 Lactate [Moles/Vol] 0.8 mmol/L Normal 0.5-2.2 [facility] Comment on above: Order Comment: PT IS BEING MEDICATED Result Comment: PERF ORMED BY: [place] [address] PATHOLOGIST [employer]GE MAINTENANCE WORKER BARBARA MUNOZ M.D. Performed By: #### L ACTIC, CUBLD #### [facility] [address] [place] [address] Magnesiumon 09-01-2023 Magnesium [Mass/Vol] 2.2 mg/dL Normal 1.9-2.7 [facility] Comment on above: Performed By: #### V [id number], MG, CBC, BMP, TSH3 ####[facility] [id number] Thyroid Stimulating Hormoneo n 09-01-2023 TSH Qn 1.90 m[IU]/L Normal 0.45-5.33 [facility] Comment on above: Result Comment: PERF ORMED BY: [place] [address] PATHOLOGIST [employer]GE MAINTENANCE WORKER BARBARA MUNOZ M.D. Performed By: #### V [id number], MG, CBC, BMP, TSH3 ####[facility] [id number] [place] [address] Troponin I High Sensitivityo n 09-01-2023 Troponin I High Sensitivity 33.3 pg/mL High 0.0-15.0 [facility] Comment on above: Result Comment: PERF ORMED BY: [place] [address] PATHOLOGIST [employer]GE MAINTENANCE WORKER BARBARA MUNOZ M.D. Performed By: #### H S TROP #### [facility] [address] [place] [address] Urine Cultureon 09-01-2023 Bacteria identified Cx Nom (U) 75,000 colonies/ml mixed bacterial skin contaminants 2 Days PERFORMED BY: [place] [address] PATHOLOGIST [employer]GE MAINTENANCE WORKER BARBARA MUNOZ M.D. [facility] Comment on above: Performed By: #### C UU, ADDONUAPLUS #### [facility] [address] [place] [address] Vit. B12/Folate Profileon Cobalamin (Vitamin B12) [Mass/Vol] 465 pg/mL Normal 180-914 [facility] Comment on above: Performed By: #### V [id number], MG, CBC, BMP, TSH3 ####[address] Folate 41.0 ng/mL Normal >5.9 [facility] Comment on above: Result Comment: Danielle te reference range: >5.9 ng/ml The WHO technical consultation on folate and vitamin b12 deficiencies has determined that folate concentrations less than 4 ng/ml are considered deficient. Performed By: #### V [id number], MG, CBC, BMP, TSH3 ####[facility] [id number] [place] [id number] [place] XR chest 2V*on 09-01-2023 XR chest 2V* [facility] [place] [address] [place] [address] XRay Report Signed Patient: Jesús Nolan MR#: [id number] 34 : 1935 Acct:[id number] Age/Sex: 88 / F ADM Date: 08/31/23 Loc: Room: [address] [place] [address] Type: ADM IN Attending Dr: Riky Bundy [...] Isabel Vega M.D.09/01/2023 6:23 AM Dictation Location: [place] [address] Transcribed By: [facility] 09/01/23622 Dictated By: Isabel Vega MD 09/01/23621 Signed By: 09/01/23622 Normal [facility] Alanine aminotransferase [En zymatic activity/volume] in Serum or PlasmaOrdered By: Destiny Irwin on 08-31-2023 ALT [Catalytic activity/Vol] 29 U/L 7-52 [facility] Albumin [Mass/volume] in Ser um or Plasma by Bromocresol green (BCG) dye binding methoOrdered By: Destiny Irwin on 08-31-2023 Albumin BCG dye [Mass/Vol] 4.7 g/dL 3.5-5.7 [facility] Alkaline phosphatase [Enzyma tic activity/volume] in Serum or PlasmaOrdered By: Destiny Irwin on 08-31-2023 ALP [Catalytic activity/Vol] 101 U/L 34-104 [facility] Aspartate aminotransferase [ Enzymatic activity/volume] in Serum or PlasmaOrdered By: Destiny Irwin on 08-31-2023 AST [Catalytic activity/Vol] 29 U/L 13-39 [facility] Automated erythrocytes count in urine sediment (number/area)Ordered By: Destiny Irwin on 08-31-2023 RBC Auto (Urine sed) [#/Area] 1-2 [HPF] 0-4 [facility] Automated leukocytes count i n urine sediment (number/area)Ordered By: Destiny Irwin on 08-31-2023 WBC Auto (Urine sed) [#/Area] 50-100 [HPF] 0-4 [facility] Basic Metabolic Panelon Anion gap [Moles/Vol] 16.9 mmol/L High 6.0-15.0 [facility] Comment on above: Performed By: #### B MP, HEPATIC, CBC, LIPASE ####[facility] [place] [id number] [facility] Calcium [Mass/Vol] 9.5 mg/dL Normal 8.6-10.3 [facility] Comment on above: Performed By: #### B MP, HEPATIC, CBC, LIPASE ####[facility] [place] [id number] [facility] Chloride [Moles/Vol] 103 mmol/L Normal 98-107 [facility] Comment on above: Performed By: #### B MP, HEPATIC, CBC, LIPASE ####[facility] [place] [address] [facility] CO2 [Moles/Vol] 23.7 mmol/L Normal 21.0-31.0 [facility] Comment on above: Performed By: #### B MP, HEPATIC, CBC, LIPASE ####[facility] [place] [id number] [facility] Creatinine [Mass/Vol] 2.74 mg/dL High 0.60-1.20 [facility] Comment on above: Performed By: #### B MP, HEPATIC, CBC, LIPASE ####[facility] [place] [address] [facility] Creatinine Clr Calc Pharmacy 12.25 [facility] Comment on above: Performed By: #### B MP, HEPATIC, CBC, LIPASE ####[place] [address] [place] [address]370 [facility] GFR/1.73 sq M.predicted MDRD (S/P/Bld) [Vol rate/Area] 16.368 mL/min/{1.73_m2} [facility] Comment on above: Performed By: #### B MP, HEPATIC, CBC, LIPASE ####[place] [address] Glucose [Mass/Vol] 132 mg/dL High 70-100 [facility] Comment on above: Result Comment: [facility] Glucose Reference Range is dependent on time and content of last meal. Glucose of more than 200 mg/dL in a nonstressed, ambulatory subject supports the diagnosis of Diabetes Mellitus. ADA recommended reference range Performed By: #### B MP, HEPATIC, CBC, LIPASE ####[place] [address] [place] [phone] [facility] Potassium [Moles/Vol] 4.6 mmol/L Normal 3.5-5.1 [facility] Comment on above: Performed By: #### B MP, HEPATIC, CBC, LIPASE ####[place] [address] [facility] Sodium [Moles/Vol] 139 mmol/L Normal 136-145 [facility] Comment on above: Performed By: #### B MP, HEPATIC, CBC, LIPASE ####[place] [id number] [facility] Urea nitrogen [Mass/Vol] 30 mg/dL High 7-25 [facility] Comment on above: Performed By: #### B MP, HEPATIC, CBC, LIPASE ####[place] [id number] [facility] Basophils Auto (Bld) [#/Vol] Ordered By: Destiny Irwin on 08-31-2023 Basophils (Bld) [#/Vol] 0.1 10*3/uL 0.0-0.2 [facility] Basophils/100 WBC Auto (Bld) Ordered By: Destiny Irwin on 08-31-2023 Basophils/100 WBC (Bld) 0.6 % . [facility] Bilirubin Test strip Ql (U)O rdered By: Destiny Irwin on 08-31-2023 Bilirubin Ql (U) Negative Negative [facility] Bilirubin.direct [Mass/volum e] in Serum or PlasmaOrdered By: Destiny Irwin on 08-31-2023 Bilirubin.direct [Mass/Vol] 0.10 mg/dL 0.03-0.18 [facility] Bilirubin.total [Mass/volume ] in Serum or PlasmaOrdered By: Destiny Irwin on 08-31-2023 Bilirubin [Mass/Vol] 0.5 mg/dL 0.3-1.0 [facility] Calcium [Mass/volume] in Ser um or PlasmaOrdered By: Destiny Irwin on 08-31-2023 Calcium [Mass/Vol] 9.5 mg/dL 8.6-10.3 [facility] Carbon dioxide, total [Moles /volume] in Serum or PlasmaOrdered By: Destiny Irwin on 08-31-2023 CO2 [Moles/Vol] 23.7 mmol/L 21.0-31.0 [facility] Chloride [Moles/volume] in S shelley or PlasmaOrdered By: Destiny Irwin on 08-31-2023 Chloride [Moles/Vol] 103 mmol/L 98-107 [facility] Color Auto (U)Ordered By: Ashley Irwin on 08-31-2023 Color (U) Yellow Yellow [facility] Complete Blood Count Auto Di ffon 08-31-2023 Basophils (Bld) [#/Vol] 0.1 10*3/uL Normal 0.0-0.2 [facility] Comment on above: Result Comment: PERF ORMED BY: [facility] [address] [place] [address] PATHOLOGIST [employer]INTE[employer] WORKER BARBARA MUNOZ M.D. Performed By: #### B MP, HEPATIC, CBC, LIPASE ####[facility] Basophils/100 WBC (Bld) 0.6 % Normal . [facility] Comment on above: Performed By: #### B MP, HEPATIC, CBC, LIPASE ####[address] Eosinophils (Bld) [#/Vol] 0.0 10*3/uL Normal 0.0-0.45 [facility] Comment on above: Performed By: #### B MP, HEPATIC, CBC, LIPASE ####[address] Eosinophils/100 WBC (Bld) 0.5 % Normal . [facility] Comment on above: Performed By: #### B MP, HEPATIC, CBC, LIPASE ####[address] Erythrocyte distribution width (RBC) [Ratio] 13.7 % Normal 11.9-15.3 [facility] Comment on above: Performed By: #### B MP, HEPATIC, CBC, LIPASE ####[address] Hematocrit (Bld) [Volume fraction] 40.5 % Normal 34.0-46.4 [facility] Comment on above: Performed By: #### B MP, HEPATIC, CBC, LIPASE ####[address] Hemoglobin (Bld) [Mass/Vol] 13.3 g/dL Normal 11.8-15.4 [facility] Comment on above: Performed By: #### B MP, HEPATIC, CBC, LIPASE ####[address] Lymphocytes (Bld) [#/Vol] 1.9 10*3/uL Normal 1.00-4.8 [facility] Comment on above: Performed By: #### B MP, HEPATIC, CBC, LIPASE ####[address] Lymphocytes/100 WBC (Bld) 20.5 % Normal . [facility] Comment on above: Performed By: #### B MP, HEPATIC, CBC, LIPASE ####[address] MCH (RBC) [Entitic mass] 31.5 pg Normal 24.7-34.3 [facility] Comment on above: Performed By: #### B MP, HEPATIC, CBC, LIPASE ####[address] MCV (RBC) [Entitic vol] 95.4 fL Normal 80-100 [facility] Comment on above: Performed By: #### B MP, HEPATIC, CBC, LIPASE ####[address] Mean Corpuscular HGB Conc 33.0 g/dL Normal 32.0-35.0 [facility] Comment on above: Performed By: #### B MP, HEPATIC, CBC, LIPASE ####[address] Monocytes (Bld) [#/Vol] 1.0 10*3/uL High 0.0-0.8 [facility] Comment on above: Performed By: #### B MP, HEPATIC, CBC, LIPASE ####[address] Monocytes/100 WBC (Bld) 18.57 % Normal 0.00-20.00 [facility] Comment on above: Performed By: #### B MP, HEPATIC, CBC, LIPASE ####[address] Monocytes/100 WBC (Bld) 10.6 % Normal . [facility] Comment on above: Performed By: #### B MP, HEPATIC, CBC, LIPASE ####[address] Neutrophils (Bld) [#/Vol] 6.4 10*3/uL Normal 1.8-7.7 [facility] Comment on above: Performed By: #### B MP, HEPATIC, CBC, LIPASE ####[address] Neutrophils/100 WBC (Bld) 67.8 % Normal . [facility] Comment on above: Performed By: #### B MP, HEPATIC, CBC, LIPASE ####[address] NRBC% 0.0 /100{WBC} Normal 0-0.5 [facility] Comment on above: Performed By: #### B MP, HEPATIC, CBC, LIPASE ####[address] Platelet mean volume (Bld) [Entitic vol] 8.4 fL Normal 6.3-10.7 [facility] Comment on above: Performed By: #### B MP, HEPATIC, CBC, LIPASE ####[address] Platelets (Bld) [#/Vol] 249 10*3/uL Normal 150-450 [facility] Comment on above: Performed By: #### B MP, HEPATIC, CBC, LIPASE ####[address] RBC (Bld) [#/Vol] 4.24 10*6/uL Normal 3.60-5.00 [facility] Comment on above: Performed By: #### B MP, HEPATIC, CBC, LIPASE ####[address] WBC (Bld) [#/Vol] 9.4 10*3/uL Normal 3.8-11.6 [facility] Comment on above: Performed By: #### B MP, HEPATIC, CBC, LIPASE ####[address] Creatinine [Mass/volume] in Serum or PlasmaOrdered By: Desitny Irwin on 08-31-2023 Creatinine [Mass/Vol] 2.74 mg/dL 0.60-1.20 [facility] D-Dimer High Sensitivityon 1 11-01-2022 D-Dimer High Sensitivity < 200 Normal 0-243 [facility] Comment on above: Result Comment: The reference [...] coagulation studies. Please contact the laboratory at [phone] for redraw instructions. PERFORMED BY: [place] [address] PATHOLOGIST [employer] BARBARA MUNOZ M.D. Performed By: #### D DIMER #### [address] ECG 12 lead ECGon 08-31-2023 ECG 12 lead ECG [facility] [place] [address] [place] [address] Electrocardiograph Report Signed Patient: Jesús Nolan MR#: [id number] 36 : 1935 Acct:[id number] Age/Sex: 88 / F ADM Date: 08/31/23 Loc: Room: [address] [place] [address] Type: ADM IN Attending Dr: Riky Bundy [...] anterior infarct Confirmed by Michael Marx DO ([id number]) on 09/01/2023 6:18:58 AM Referred By: Electronically Signed By:Michael Marx DO Transcribed By: MUS Signed By Michael Marx DO [id number] Normal [facility] Eosinophils Auto (Bld) [#/Vo l]Ordered By: Destiny Irwin on 08-31-2023 Eosinophils (Bld) [#/Vol] 0.0 10*3/uL 0.0-0.45 [facility] Eosinophils/100 WBC Auto (Bl d)Ordered By: Destiny Irwin on 08-31-2023 Eosinophils/100 WBC (Bld) 0.5 % . [facility] Erythrocyte distribution wid th Auto (RBC) [Ratio]Ordered By: Destiny Irwin on 08-31-2023 Erythrocyte distribution width (RBC) [Ratio] 13.7 % 11.9-15.3 [facility] Fibrin D-dimer [Presence] in Platelet poor plasma by Latex agglutinationOrdered By: Destiny Irwin on 08-31-2023 Fibrin D-dimer LA Ql (PPP) < 200 ng/mL 0-243 [facility] Comment on above: The reference range for [...] coagulation studies. Please contact the laboratory at [phone] for redraw instructions. Globulin Calc (S) [Mass/Vol] Ordered By: Destiny Irwin on 08-31-2023 Globulin (S) [Mass/Vol] 3.3 g/dL [facility] Glucose [Mass/volume] in Ser um or PlasmaOrdered By: Destiny Irwin on 08-31-2023 Glucose [Mass/Vol] 132 mg/dL 70-100 [facility] Comment on above: ADA recommended refe rence rangeRandom Glucose Reference Range is dependent on time and content of last meal. Glucose of more than 200 mg/dL in a nonstressed, ambulatory subject supports the diagnosis of Diabetes Mellitus. Hematocrit Auto (Bld) [Volum e fraction]Ordered By: Destiny Irwin on 08-31-2023 Hematocrit (Bld) [Volume fraction] 40.5 % 34.0-46.4 [facility] Hemoglobin [Mass/volume] in BloodOrdered By: Destiny Irwin on 08-31-2023 Hemoglobin (Bld) [Mass/Vol] 13.3 g/dL 11.8-15.4 [facility] Hepatic Panelon 08-31-2023 Albumin [Mass/Vol] 4.7 g/dL Normal 3.5-5.7 [facility] Comment on above: Performed By: #### B MP, HEPATIC, CBC, LIPASE ####[address] Albumin/Globulin [Mass ratio] 1.4 {ratio} Normal [facility] Comment on above: Performed By: #### B MP, HEPATIC, CBC, LIPASE ####[place] [address] [place] [id number] [facility] ALP [Catalytic activity/Vol] 101 U/L Normal 34-104 [facility] Comment on above: Performed By: #### B MP, HEPATIC, CBC, LIPASE ####[place] [address] [place] [address] [facility] ALT [Catalytic activity/Vol] 29 U/L Normal 7-52 [facility] Comment on above: Performed By: #### B MP, HEPATIC, CBC, LIPASE ####[address] [place] [address] [facility] AST [Catalytic activity/Vol] 29 U/L Normal 13-39 [facility] Comment on above: Performed By: #### B MP, HEPATIC, CBC, LIPASE ####[place] [id number] [facility] Bilirubin [Mass/Vol] 0.5 mg/dL Normal 0.3-1.0 [facility] Comment on above: Performed By: #### B MP, HEPATIC, CBC, LIPASE ####[place] [address] Bilirubin,Indirect 0.4 mg/dL Normal [facility] Comment on above: Performed By: #### B MP, HEPATIC, CBC, LIPASE ####[place] [address] Bilirubin.indirect [Mass/Vol] 0.10 mg/dL Normal 0.03-0.18 [facility] Comment on above: Performed By: #### B MP, HEPATIC, CBC, LIPASE ####[place] [address] Globulin (S) [Mass/Vol] 3.3 g/dL Normal F [facility] Comment on above: Performed By: #### B MP, HEPATIC, CBC, LIPASE ####[place] [address] Protein [Mass/Vol] 8.0 g/dL Normal 6.4-8.9 [facility] Comment on above: Performed By: #### B MP, HEPATIC, CBC, LIPASE ####[address] Ketones Auto test strip (U) [Mass/Vol]Ordered By: Destiny Irwin on 08-31-2023 Ketones (U) [Mass/Vol] Negative Negative [facility] Leukocytes [#/volume] correc tavia for nucleated erythrocytes in Blood by Automated counOrdered By: Destiny Irwin on 08-31-2023 WBC corrected for nucl RBC Auto (Bld) [#/Vol] 9.4 10*3/uL 3.8-11.6 [facility] Lipaseon 08-31-2023 Lipase [Catalytic activity/Vol] 33.0 U/L Normal 11.0-82.0 [facility] Comment on above: Result Comment: PERF ORMED BY: [facility] [address] [place] [id number] PATHOLOGIST [employer]ER JIANLAN SUN M.D. Performed By: #### B MP, HEPATIC, CBC, LIPASE ####[facility] [place] [id number] [facility] Lipase [Enzymatic activity/v olume] in Serum or PlasmaOrdered By: Destiny Irwin on 08-31-2023 Lipase [Catalytic activity/Vol] 33.0 U/L 11.0-82.0 [facility] Lymphocytes Auto (Bld) [#/Vo l]Ordered By: Destiny Irwin on 08-31-2023 Lymphocytes (Bld) [#/Vol] 1.9 10*3/uL 1.00-4.8 [facility] Lymphocytes/100 WBC Auto (Bl d)Ordered By: Destiny Irwin on 08-31-2023 Lymphocytes/100 WBC (Bld) 20.5 % . [facility] MCH Auto (RBC) [Entitic mass ]Ordered By: Destiny Irwin on 08-31-2023 MCH (RBC) [Entitic mass] 31.5 pg 24.7-34.3 [facility] MCHC Auto (RBC) [Mass/Vol]Or dered By: Destiny Irwin on 08-31-2023 MCHC (RBC) [Mass/Vol] 33.0 g/dL 32.0-35.0 [facility] MCV Auto (RBC) [Entitic vol] Ordered By: Destiny Irwin on 08-31-2023 MCV (RBC) [Entitic vol] 95.4 fL 80-100 F [facility] Monocyte distribution width [Entitic volume] in Blood by AutomatedOrdered By: Destiny Irwin on 08-31-2023 Monocyte distribution width Auto (Bld) [Entitic vol] 18.57 % 0.00-20.00 [facility] Monocytes Auto (Bld) [#/Vol] Ordered By: Destiny Irwin on 08-31-2023 Monocytes (Bld) [#/Vol] 1.0 10*3/uL 0.0-0.8 [facility] Monocytes/100 WBC Auto (Bld) Ordered By: Destiny Irwin on 08-31-2023 Monocytes/100 WBC (Bld) 10.6 % . F [facility] Neutrophils Auto (Bld) [#/Vo l]Ordered By: Destiny Irwin on 08-31-2023 Neutrophils (Bld) [#/Vol] 6.4 10*3/uL 1.8-7.7 [facility] Neutrophils/100 WBC Auto (Bl d)Ordered By: Destiny Irwin on 08-31-2023 Neutrophils/100 WBC (Bld) 67.8 % . [facility] Nitrite Test strip Ql (U)Ord ered By: Destiny Irwin on 08-31-2023 Nitrite Ql (U) Negative Negative [facility] No Panel InformationOrdered By: Destiny Irwin on 08-31-2023 Estimated GFR (CKD-EPI) 16.368 mL/Min [facility] Creatinine Clearance (Chem 12.25 [facility] Nucleated erythrocytes [Pres ence] in Blood by Automated countOrdered By: Destiny Irwin on 08-31-2023 Nucleated RBC Auto Ql (Bld) 0.0 /100{WBC} 0-0.5 [facility] Platelet mean volume Auto (B ld) [Entitic vol]Ordered By: Destiny Irwin on 08-31-2023 Platelet mean volume (Bld) [Entitic vol] 8.4 fL 6.3-10.7 [facility] Platelets Auto (Bld) [#/Vol] Ordered By: Destiny Irwin on 08-31-2023 Platelets (Bld) [#/Vol] 249 10*3/uL 150-450 [facility] Potassium [Moles/volume] in Serum or PlasmaOrdered By: Destiny Irwin on 08-31-2023 Potassium [Moles/Vol] 4.6 mmol/L 3.5-5.1 [facility] Protein Auto test strip (U) [Mass/Vol]Ordered By: Destiny Irwin on 08-31-2023 Protein (U) [Mass/Vol] 30 mg/dL Negative [facility] Protein [Mass/volume] in Ser um or PlasmaOrdered By: Destiny Irwin on 08-31-2023 Protein [Mass/Vol] 8.0 g/dL 6.4-8.9 [facility] RBC Auto (Bld) [#/Vol]Ordere d By: Destiny Irwin on 08-31-2023 RBC (Bld) [#/Vol] 4.24 10*6/uL 3.60-5.00 [facility] Serum or plasma albumin/glob ulin mass ratioOrdered By: Destiny Irwin on 08-31-2023 Albumin/Globulin [Mass ratio] 1.4 {ratio} [facility] Serum or plasma anion gap de terminationOrdered By: Destiny Irwin on 08-31-2023 Anion gap [Moles/Vol] 16.9 mmol/L 6.0-15.0 [facility] Serum or plasma non-glucuron idated bilirubin measurement (mass/volume)Ordered By: Destiny Irwin on 08-31-2023 Bilirubin.indirect [Mass/Vol] 0.4 mg/dL [facility] Sodium [Moles/volume] in Ser um or PlasmaOrdered By: Destiny Irwin on 08-31-2023 Sodium [Moles/Vol] 139 mmol/L 136-145 [facility] Specific gravity Auto test s trip (U) [Rel density]Ordered By: Destiny Irwin on 08-31-2023 Specific gravity (U) [Rel density] 1.016 1.001-1.030 [facility] Squamous epithelial cells de tection in urine sediment by light microscopyOrdered By: Destiny Irwin on 08-31-2023 Epithelial cells.squamous LM Ql (Urine sed) 3-4 [HPF] 0-2 [facility] Troponin I High Sensitivityo n 08-31-2023 Troponin I High Sensitivity 18.1 pg/mL High 0.0-15.0 [facility] Comment on above: Result Comment: PERF ORMED BY: [facility] [address] [place] [id number] PATHOLOGIST [employer]ER BARBARA MUNOZ M.D. Performed By: #### H S TROP ####[facility] [place] [id number] [facility] Troponin I.cardiac [Mass/vol ume] in Serum or Plasma by Detection limit <= 0.01 ng/Ordered By: Destiny Irwin on 08-31-2023 Troponin I.cardiac DL <= 0.01 ng/mL [Mass/Vol] 18.1 pg/mL 0.0-15.0 [facility] Urea nitrogen [Mass/volume] in Serum or PlasmaOrdered By: Destiny Irwin on 08-31-2023 Urea nitrogen [Mass/Vol] 30 mg/dL 7-25 [facility] Urine bacteria detection by automated methodOrdered By: Destiny Irwin on 08-31-2023 Bacteria Auto Ql (U) None seen None Seen [facility] Urine clarity by refractomet ry automatedOrdered By: Destiny Irwin on 08-31-2023 Clarity Refractometry automated (U) Cloudy Clear [facility] Urine glucose measurement by automated test strip (mass/volume)Ordered By: Destiny Irwin on 08-31-2023 Glucose Auto test strip (U) [Mass/Vol] Normal mg/dL Normal [facility] Urine hemoglobin detection b y automated test stripOrdered By: Destiny Irwin on 08-31-2023 Hemoglobin Auto test strip Ql (U) Trace Negative [facility] Urine leukocyte esterase det ection by automated test stripOrdered By: Destiny Irwin on 08-31-2023 Leukocyte esterase Auto test strip Ql (U) 4+ Negative [facility] Urobilinogen Auto test strip (U) [Mass/Vol]Ordered By: Destiny Irwin on 08-31-2023 Urobilinogen (U) [Mass/Vol] Normal mg/dL Normal [facility] WBC Auto (Bld) [#/Vol]Ordere d By: Destiny Irwin on 08-31-2023 WBC (Bld) [#/Vol] 9.4 10*3/uL 3.8-11.6 [facility] pH Auto test strip (U)Ordere d By: Destiny Irwin on 08-31-2023 pH (U) 6.0 [pH] 5.0-9.0 [facility] Insurance Correspondence Off iceon 08-27-2023 Insurance Correspondence Office [phone] [id number] 0TIFF Normal [facility] CBC AUTO DIFFon 04-12-2021 BASO # 0.0 103/ul Normal 0.0-0.1 [facility] Comment on above: Performed By: #### C BC #### [facility] [address] [address] [place] Basophils/100 WBC (Bld) 0.3 % Normal 0.2-2.0 [facility] Comment on above: Performed By: #### C BC #### [facility] [address] [place] [address] [place] EO # 0.1 103/ul Normal 0.0-0.7 [facility] Comment on above: Performed By: #### C BC #### [facility] [address] [place] [address] [place] Eosinophils/100 WBC (Bld) 2.1 % Normal 0.9-7.0 [facility] Comment on above: Performed By: #### C BC #### [facility] [address] [place] [address] [place] Erythrocyte distribution width (RBC) [Ratio] 13.7 % Normal 11.0-15.0 [facility] Comment on above: Performed By: #### C BC #### [facility] [address] [place] [address] [place] Hematocrit (Bld) [Volume fraction] 39.6 % Normal 36.0-48.0 [facility] Comment on above: Performed By: #### C BC #### [facility] [address] [place] [address] [place] Hemoglobin (Bld) [Mass/Vol] 12.9 g/dL Normal 12.0-16.0 [facility] Comment on above: Performed By: #### C BC #### [facility] [address] [place] [address] [place] IG # 0.01 10e3/ul Normal 0.00-0.03 [facility] Comment on above: Performed By: #### C BC #### [facility] [address] [place] [address] [place] IG % 0.2 % Normal 0.0-0.5 [facility] Comment on above: Performed By: #### C BC #### [facility] [address] [place] [address] [place] LYMPH # 2.2 103/ul Normal 1.2-3.8 [facility] Comment on above: Performed By: #### C BC #### [facility] [address] [place], [place] [id number] [place] Lymphocytes/100 WBC (Bld) 35.3 % Normal 20.5-60.0 [facility] Comment on above: Performed By: #### C BC #### [facility] [address] [place], [place] [id number] [place] MANUAL DIFF REQ NO Normal [facility] Comment on above: Performed By: #### C BC #### [facility] [address] [place], [place] [id number] [place] MCH (RBC) [Entitic mass] 31.1 pg Normal 26.7-34.0 [facility] Comment on above: Performed By: #### C BC #### [facility] [address] [place] [address] [place] MCHC (RBC) [Mass/Vol] 32.6 g/dL Normal 29.9-35.2 [facility] Comment on above: Performed By: #### C BC #### [facility] [address] [place], [place] [id number] [place] MCV (RBC) [Entitic vol] 95.4 fL Normal 81.0-99.0 [facility] Comment on above: Performed By: #### C BC #### [facility] [address] [place], [place] [id number] [place] MONO # 0.7 103/ul Normal 0.3-0.8 [facility] Comment on above: Performed By: #### C BC #### [facility] [address] [place], [place] [id number] [place] Monocytes/100 WBC (Bld) 12.1 % Critically high 1.7-12. 0 [facility] Comment on above: Performed By: #### C BC #### [facility] [address] [place], [place] [id number] [place] NEUT # 3.1 103/ul Normal 1.4-6.5 [facility] Comment on above: Performed By: #### C BC #### [facility] [address] [place], [place] [address] [place] Neutrophils/100 WBC (Bld) 50.0 % Normal 43.0-75.0 [facility] Comment on above: Performed By: #### C BC #### [facility] [address] [place] [address] [place] Platelet mean volume (Bld) [Entitic vol] 10.2 fL Normal 9.5-13.5 [facility] Comment on above: Performed By: #### C BC #### [facility] [address] [place] [address] [place] PLT 212 103/ul Normal 150-450 [facility] Comment on above: Performed By: #### C BC #### [facility] [address] [place], [place] [address] [place] RBC 4.15 106/ul Critically low 4.20-5.40 [facility] Comment on above: Performed By: #### C BC #### [facility] [address] [place] [address] [place] WBC 6.1 103/ul Normal 4.0-11.0 [facility] Comment on above: Performed By: #### C BC #### [facility] [address] [place], [place] [id number] [place] RENAL FUNCTION PANELon 04-12 Albumin [Mass/Vol] 3.4 g/dL Critically low 3.5-5.0 [facility] Comment on above: Performed By: #### R ENAL #### [facility] [address] [place], [place] [id number] [place] Calcium [Mass/Vol] 8.9 mg/dL Normal 8.4-10.2 [facility] Comment on above: Performed By: #### R ENAL #### [facility] [address] [place], [place] [address] [place] Chloride [Moles/Vol] 106 mmol/L Normal 98-107 [facility] Comment on above: Performed By: #### R ENAL #### [facility] [address] [place], [place] [address] [place] CO2 [Moles/Vol] 29.4 mmol/L Normal 22.0-30.0 [facility] Comment on above: Performed By: #### R ENAL #### [facility] [address] [place] [id number] [place] Creatinine [Mass/Vol] 1.49 mg/dL Critically high 0.52-1.04 [facility] Comment on above: Performed By: #### R ENAL #### [facility] [address] [place] [id number] [place] EGFR-AF NAMIBIAN 41 mL/min/1.73m2 Critically low >=60 [facility] Comment on above: Performed By: #### R ENAL #### [facility] [address] [place] [address] [place] EGFR-NON AF NAMIBIAN 33 mL/min/1.73m2 Critically low >=60 [facility] Comment on above: Performed By: #### R ENAL #### [facility] [address] [address] [place] Glucose [Mass/Vol] 138 mg/dL Critically high 74-106 [facility] Comment on above: Performed By: #### R ENAL #### [facility] [address] [place] [id number] [place] Phosphate [Mass/Vol] 4.3 mg/dL Normal 2.5-4.5 [facility] Comment on above: Performed By: #### R ENAL #### [facility] [address] [address] [place] Potassium [Moles/Vol] 3.2 mmol/L Critically low 3.4-5.0 [facility] Comment on above: Performed By: #### R ENAL #### [facility] [address] [place] [id number] [place] Sodium [Moles/Vol] 144 mmol/L Normal 137-145 [facility] Comment on above: Performed By: #### R ENAL #### [facility] [address] [place] [address] [place] Urea nitrogen [Mass/Vol] 28.0 mg/dL Critically high 7.0-17.0 [facility] Comment on above: Performed By: #### R ENAL #### [facility] [address] [place] [address] [place] UA RANDOMon 04-12-2021 Bilirubin Ql (U) Negative Normal NEGATIVE [facility] Comment on above: Performed By: #### U A #### [facility] [address] [place] [address] [place] Clarity (U) CLOUDY Abnormal CLEAR [facility] Comment on above: Performed By: #### U A #### [facility] [address] [place] [address] [place] Color (U) LT. YELLOW Normal YELLOW [facility] Comment on above: Performed By: #### U A #### [facility] [address] [place] [address] [place] Glucose Ql (U) Negative Normal NEGATIVE [facility] Comment on above: Performed By: #### U A #### [facility] [address] [place] [address] [place] Hemoglobin Ql (U) LARGE Abnormal NEGATIVE [facility] Comment on above: Performed By: #### U A #### [facility] [address] [place] [address] [place] Ketones Ql (U) Negative Normal NEGATIVE [facility] Comment on above: Performed By: #### U A #### [facility] [address] [place] [address] [place] LEUKOCYTES LARGE Abnormal NEGATIVE [facility] Comment on above: Performed By: #### U A #### [facility] [address] [place] [address] [place] Nitrite Ql (U) Negative Normal NEGATIVE [facility] Comment on above: Performed By: #### U A #### [facility] [address] [place] [address] [place] pH (U) 6.5 [pH] Normal 5-9 [facility] Comment on above: Performed By: #### U A #### [facility] [address] [place], [place] [address] [place] SPEC GRAVITY 1.015 Normal 1.005-<=1.02 5 [facility] Comment on above: Performed By: #### U A #### [facility] [address] [place], [place] [address] Chelsey Hall UA PROTEIN 30 mg/dl Abnormal NEGATIVE/ TRACE [facility] Comment on above: Performed By: #### U A #### [facility] [address] [place], [place] [address] Chelsey Hall Urobilinogen Qn (U) 0.2 {Gerard'U}/dL Normal 0.2 - 1. 0 [facility] Comment on above: Performed By: #### U A #### [facility] [address] [place] [address] Chelsey Hall C-Reactive Proteinon 021 CRP [Mass/Vol] 7.9 mg/L High 0.0-5.0 [facility] Comment on above: Performed By: #### C DP #### [facility] [address] [place] [address] Care Analyst: Loi Irene MD #### CRP #### [place] [address] [place], [place] [id number] Care Analyst: Dg Aparicio MD CRP [Mass/Vol] 7.9 mg/L High 0.0 - 5.0 mg/L [facility] [employer] Phone: Interpretation and review of laboratory results Abnormal [facility] [employer] Phone: PTH, Intacton 12-06-2020 PTH, Intact 39.87 pg/mL Normal 15.0-65.0 [facility] Comment on above: Result Comment: SAMP LES FROM PATIENTS ROUTINELY RECEIVING HIGH DOSE BIOTIN THERAPY MAY SHOW FALSELY DEPRESSED RESULTS. ADDITIONAL INFORMATION MAY BE REQUIRED FOR DIAGNOSIS. Performed By: #### ARMANDO Warren URI #### [facility] [address] [place] [address] Care Analyst: Loi Irene MD #### PTHNCA #### [employer] [address] [place] [address] Care Analyst: Dg Aparicio MD Pth Intact 39.87 pg/mL 15.0 - 65.0 pg/mL [employer] Phone: Comment on above: SAMPLES FROM PATIENT S ROUTINELY RECEIVING HIGH DOSE BIOTIN THERAPY MAY SHOW FALSELY DEPRESSED RESULTS. ADDITIONAL INFORMATION MAY BE REQUIRED FOR DIAGNOSIS. CBC Auto Differentialon 11-25 Basophils (Bld) [#/Vol] 10*3/uL M [employer] Phone: Basophils/100 WBC (Bld) 0 % 0 - 2 % [employer] Phone: Differential Type NOT REPORTED [employer] Phone: Eosinophils (Bld) [#/Vol] 0.16 10*3/uL [employer] Phone: Eosinophils/100 WBC (Bld) 3 % 1 - 4 % [employer] Phone: Erythrocyte distribution width (RBC) [Ratio] 15.3 % High 11.8 - 14.4 % [employer] Phone: Hematocrit (Bld) [Volume fraction] 38.3 % 36.3 - 47.1 % [employer] Phone: Hemoglobin (Bld) [Mass/Vol] 11.9 g/dL 11.9 - 15.1 g/dL [employer] Phone: Immature granulocytes (Bld) [#/Vol] 10*3/uL [employer] Phone: Immature granulocytes (Bld) [#/Vol] 0 % 0 [employer] Phone: Interpretation and review of laboratory results Abnormal [employer] Phone: Lymphocytes (Bld) [#/Vol] 1.68 10*3/uL [employer] Phone: Lymphocytes/100 WBC (Bld) 32 % 24 - 43 % [employer] Phone: MCH (RBC) [Entitic mass] 31.2 pg 25.2 - 33.5 pg [employer] Phone: MCHC (RBC) [Mass/Vol] 31.1 g/dL 28.4 - 34.8 g/dL [employer] Phone: MCV (RBC) [Entitic vol] 100.3 fL 82.6 - 102.9 fL [employer] Phone: Monocytes (Bld) [#/Vol] 0.67 10*3/uL [employer] Phone: Monocytes/100 WBC (Bld) 13 % High 3 - 12 % M [employer] Phone: Platelet mean volume (Bld) [Entitic vol] 10.2 fL 8.1 - 13.5 fL [employer] Phone: Platelets (Bld) [#/Vol] 238 10*3/uL [employer] Phone: Platelets (Bld) [#/Vol] NOT REPORTED [employer] Phone: RBC (Bld) [#/Vol] 3.82 10*6/uL Low 3.95 - 5.1 1 m/uL [employer] Phone: RBC morphology finding Nom (Bld) NOT REPORTED [employer] Phone: Segmented neutrophils/100 WBC (Bld) 52 % 36 - 65 % [employer] Phone: Segs Absolute 2.75 [employer] Phone: WBC (Bld) [#/Vol] 5.3 10*3/uL [facility] [employer] Phone: WBC (Bld) [#/Vol] 0.0 10*3/uL 0.0 per [address] [facility] [employer] Phone: WBC Morphology NOT REPORTED [facility] [employer] Phone: CBC with Diffon 12-05-2020 Abs. Basophil <0.03 Normal 0.00-0.20 [facility] Comment on above: Performed By: #### C DP #### [address] [place] [address] Care Analyst: Loi Irene MD #### CRP #### [address] [id number] Care Analyst: Dg Aparicio MD Abs.Imm.Granulocyte <0.03 Normal 0.00-0.30 [facility] Comment on above: Performed By: #### C DP #### [address] [place] [phone] Care Analyst: Loi Irene MD #### CRP #### [address] [id number] Care Analyst: Dg Aparicio MD Abs.Neutrophil (Seg) 2.75 k/uL Normal 1.50-8.10 [facility] Comment on above: Performed By: #### C DP #### [address] [place] [phone] Care Analyst: Loi Irene MD #### CRP #### [address] [address] Care Analyst: Dg Aparicio MD Basophils/100 WBC (Bld) 0 % Normal 0-[address] [facility] Comment on above: Performed By: #### C DP #### [facility] [address] [place] [address] Dr. [place] [phone] Care Analyst: Loi Irene MD #### CRP #### [address] [id number] Care Analyst: Dg Aparicio MD Eosinophils (Bld) [#/Vol] 0.16 10*3/uL Normal 0.00-0.44 [facility] Comment on above: Performed By: #### C DP #### [facility] [address] [place] [address] Dr. [place] [phone] Care Analyst: Loi Irene MD #### CRP #### [place] [address] Care Analyst: Dg Aparicio MD Eosinophils/100 WBC (Bld) 3 % Normal 1-4 [facility] Comment on above: Performed By: #### C DP #### [address] [place] [address] Care Analyst: Loi Irene MD #### CRP #### [place] [address] Care Analyst: Dg Aparicio MD Erythrocyte distribution width (RBC) [Ratio] 15.3 % High 11.8-14.4 [facility] Comment on above: Performed By: #### C DP #### [address] [place] [address] Care Analyst: Loi Irene MD #### CRP #### [place] [address] Care Analyst: Dg Aparicio MD Hematocrit (Bld) [Volume fraction] 38.3 % Normal 36.3-47.1 [facility] Comment on above: Performed By: #### C DP #### [facility] [address] [place] [address] Dr. [place] [phone] Care Analyst: Loi Irene MD #### CRP #### [address] [address] Care Analyst: Dg Aparicio MD Hemoglobin (Bld) [Mass/Vol] 11.9 g/dL Normal 11.9-15.1 [facility] Comment on above: Performed By: #### C DP #### [facility] [address] [place], [place] [phone] Care Analyst: Loi Irene MD #### CRP #### [address] [address] Care Analyst: Dg Aparicio MD Immature granulocytes/100 WBC (Bld) 0 % Normal 0 [facility] Comment on above: Performed By: #### C DP #### [facility] [address] [place] [address] Dr. [place] [phone] Care Analyst: Loi Irene MD #### CRP #### [address] [address] Care Analyst: Dg Aparicio MD Lymphocytes (Bld) [#/Vol] 1.68 10*3/uL Normal 1.10-3.70 [facility] Comment on above: Performed By: #### C DP #### [facility] [address] [place], [place] [phone] Care Analyst: Loi Irene MD #### CRP #### [address] [address] Care Analyst: Dg Aparicio MD Lymphocytes/100 WBC (Bld) 32 % Normal 24-43 [facility] Comment on above: Performed By: #### C DP #### [facility] [address] [place], [place] [id number] Care Analyst: Loi Irene MD #### CRP #### [address] [address] Care Analyst: Dg Aparicio MD MCH (RBC) [Entitic mass] 31.2 pg Normal 25.2-33.5 [facility] Comment on above: Performed By: #### C DP #### [facility] [address] [place] [address] Dr. [place] [phone] Care Analyst: Loi Irene MD #### CRP #### [place] [address] Care Analyst: Dg Aparicio MD MCHC (RBC) [Mass/Vol] 31.1 g/dL Normal 28.4-34.8 [facility] Comment on above: Performed By: #### C DP #### [address] [place] [phone] ( Care Analyst: Loi Irene MD #### CRP #### [place] [address] Care Analyst: Dg Aparicio MD MCV (RBC) [Entitic vol] 100.3 fL Normal 82.6-102.[address] [facility] Comment on above: Performed By: #### C DP #### [address] [place] [phone] Care Analyst: Loi Irene MD #### CRP #### [place] [address] Care Analyst: Dg Aparicio MD Monocytes (Bld) [#/Vol] 0.67 10*3/uL Normal 0.10-1.20 [facility] Comment on above: Performed By: #### C DP #### [address] [place] [phone] Care Analyst: Loi Irene MD #### CRP #### [place] [address] Care Analyst: Dg Aparicio MD Monocytes/100 WBC (Bld) 13 % High 3-[address] [facility] Comment on above: Performed By: #### C DP #### [facility] [address] [place], [place] [phone] Care Analyst: Loi Irene MD #### CRP #### [address] [address] Care Analyst: Dg Aparicio MD Neutrophil (Seg) 52 % Normal 36-65 [facility] Comment on above: Performed By: #### C DP #### [facility] [address] [place] [address] Care Analyst: Loi Irene MD #### CRP #### [address] [address] Care Analyst: Dg Aparicio MD NRBC Automated 0.0 per 100 WBC Normal 0.0 [facility] Comment on above: Performed By: #### C DP #### [address] [place] [address] Care Analyst: Loi Irene MD #### CRP #### [address] [address] Care Analyst: Dg Aparicio MD Platelet mean volume (Bld) [Entitic vol] 10.2 fL Normal 8.1-13.5 [facility] Comment on above: Performed By: #### C DP #### [facility] [address] [place] [address] [place] [address] Care Analyst: Loi Irene MD #### CRP #### [address] [address] Care Analyst: Dg Aparicio MD Platelets (Bld) [#/Vol] 238 10*3/uL Normal 138-453 [facility] Comment on above: Performed By: #### C DP #### [facility] [address] [place] [address] [place] [address] Care Analyst: Loi Irene MD #### CRP #### [facility] [address] [place] [address] Care Analyst: Dg Aparicio MD RBC (Bld) [#/Vol] 3.82 10*6/uL Low 3.95-5.11 [facility] Comment on above: Performed By: #### C DP #### [facility] [address] [place] [address] [place] [address] Care Analyst: Loi Irene MD #### CRP #### [address] [address] Care Analyst: Dg Aparicio MD WBC (Bld) [#/Vol] 5.3 10*3/uL Normal 3.5-11.3 [facility] Comment on above: Performed By: #### C DP #### [address] [place] [address] Care Analyst: Loi Irene MD #### CRP #### [address] [address] Care Analyst: Dg Aparicio MD Auto Diff Performed NOT REPORTED Normal [facility] Comment on above: Performed By: #### C DP #### [address] [place] [address] Care Analyst: Loi Irene MD #### CRP #### [address] [address] Care Analyst: Dg Aparicio MD Platelet Estimate NOT REPORTED Normal [facility] Comment on above: Performed By: #### C DP #### [address] [place] [address] Care Analyst: Loi Irene MD #### CRP #### [address] [address] Care Analyst: Dg Aparicio MD RBC morphology finding Nom (Bld) NOT REPORTED Normal [facility] Comment on above: Performed By: #### C DP #### [facility] [address] [place], [place] [id number] Care Analyst: Loi Irene MD #### CRP #### [address] [place] [address] Care Analyst: Dg Aparicio MD WBC Morphology NOT REPORTED Normal [facility] Comment on above: Performed By: #### C DP #### [facility] [address] [place], [place] [id number] Care Analyst: Loi Irene MD #### CRP #### [address] [place] [address] Care Analyst: Dg Aparicio MD Magnesiumon 8 Magnesium [Mass/Vol] 2.2 mg/dL Normal 1.6-2.6 [facility] Comment on above: Performed By: #### M ARMANDO Padgett URI #### [facility] [address] [place] [address] Dr. [place], [place] [phone] Care Analyst: Loi Irene MD #### PTHNCA #### [address] [address] Care Analyst: Dg Aparicio MD Magnesium [Mass/Vol] 2.2 mg/dL 1.6 - 2 .6 mg/dL [employer] Work Phone: Metabolic Panelon 12-05-2020 GFR/1.73 sq M predicted among non-blacks MDRD (S/P/Bld) [Vol rate/Area] [facility] Phone: Comment on above: Average GFR for 70 o r more years old: 75 mL/min/1.73sq m Chronic Kidney Disease: <60 mL/min/1.73sq m Kidney failure: <15 mL/min/1.73sq m eGFR calculated using average adult body mass. Additional eGFR calculator available at: http://www.[employer]/multiple_crcl_2012.htm Stage 1: Some kidney damage normal GFR Stage 2: Mild kidney damage GFR 60-89 Stage 3: Moderate kidney damage GFR 30-59 Stage 4: Severe kidney damage GFR 15-29 Stage 5: Severe kidney damage GFR <15 ESRD - chronic treatment by dialysis or transplant Otheron 12-05-2020 Interpretation and review of laboratory results Abnormal [facility] Work Phone: Renal Function Panelon 12-05 (cont.) Normal [facility] Comment on above: Result Comment: Aver age GFR for 70 or more years old: 75 mL/min/1.73sq m Chronic Kidney Disease: <60 mL/min/1.73sq m Kidney failure: <15 mL/min/1.73sq m eGFR calculated using average adult body mass. Additional eGFR calculator available at: http://www.[employer]/multiple_crcl_2012.htm Performed By: #### M ARMANDO Padgett URI #### [address] [place] [address] Care Analyst: Loi Irene MD #### PTHNCA #### [address] [address] Care Analyst: Dg Aparicio MD Albumin [Mass/Vol] 3.5 g/dL Normal 3.5-5.2 [facility] Comment on above: Performed By: #### M ARMANDO Padgett, URI #### [facility] [address] [place] [address] [place] [address] Care Analyst: Loi Irene MD #### PTHNCA #### [address] [address] Care Analyst: Dg Aparicio MD Anion gap [Moles/Vol] 11 mmol/L Normal 9-17 [facility] Comment on above: Performed By: #### ARMANDO [place], URI #### [facility] [address] [place], [place] [phone] Care Analyst: Loi Irene MD #### PTHNCA #### [address] [address] Care Analyst: Dg Aparicio MD BUN/CRE Ratio 20 Normal 9-20 [facility] Comment on above: Performed By: #### ARMANDO [place], URI #### [facility] [address] [place], [place] [phone] Care Analyst: Loi Irene MD #### PTHNCA #### [address] [address] Care Analyst: Dg Aparicio MD Calcium [Mass/Vol] 9.3 mg/dL Normal 8.6-10.4 [facility] Comment on above: Performed By: #### ARMANDO [place], URI #### [facility] [address] [place], [place] [phone] Care Analyst: Loi Irene MD #### PTHNCA #### [address] [address] Care Analyst: Dg Aparicio MD Chloride [Moles/Vol] 103 mmol/L Normal 98-107 [facility] Comment on above: Performed By: #### ARMANDO [place], URI #### [facility] [address] [place] [address] Care Analyst: Loi Irene MD #### PTHNCA #### [address] [address] Care Analyst: Dg Aparicio MD CO2 [Moles/Vol] 29 mmol/L Normal 20-31 [facility] Comment on above: Performed By: #### ARMANDO Warren URI #### [facility] [address] [place], [place] [id number] Care Analyst: Loi Irene MD #### PTHNCA #### [address] [address] Care Analyst: Dg Aparicio MD Creatinine [Mass/Vol] 1.43 mg/dL High 0.50-0.90 [facility] Comment on above: Performed By: #### ARMANDO [place], URI #### [facility] [address] [place], [place] 5596683 Care Analyst: Loi Irene MD #### PTHNCA #### [address] [id number] Care Analyst: Dg Aparicio MD GFR, Amer 42 mL/min Low >60 [facility] Comment on above: Performed By: #### ARMANDO [place], URI #### [address] [place], [place] [phone] Care Analyst: Loi Irene MD #### PTHNCA #### [address] [address] Care Analyst: Dg Aparicio MD GFR,non Amer 35 mL/min Low >60 [facility] Comment on above: Performed By: #### ARMANDO [place], URI #### [facility] [address] [place] [address] Dr. [place], [place] 9671083 Care Analyst: Loi Irene MD #### PTHNCA #### [address] [address] Care Analyst: Dg Aparicio MD Glucose [Mass/Vol] 131 mg/dL High 70-99 [facility] Comment on above: Performed By: #### ARMANDO [place], URI #### [address] [place] [phone] Care Analyst: Loi Irene MD #### PTHNCA #### [address] [id number] Care Analyst: Dg Aparicio MD Phosphorus, Inorg. 3.6 mg/dL Normal 2.6-4.5 [facility] Comment on above: Performed By: #### ARMANDO Warren URI #### [address] [place] [id number] Care Analyst: Loi Irene MD #### PTHNCA #### [address] [phone] Care Analyst: Dg Aparicio MD Potassium [Moles/Vol] 3.4 mmol/L Low 3.7-5.3 [facility] Comment on above: Performed By: #### ARMANDO Warren URI #### [place] [id number] Care Analyst: Loi Irene MD #### PTHNCA #### [address] [id number] Care Analyst: Dg Aparicio MD Sodium [Moles/Vol] 143 mmol/L Normal 135-144 [facility] Comment on above: Performed By: #### ARMANDO Warren URI #### [place] [id number] Care Analyst: Loi Irene MD #### PTHNCA #### [address] [phone] Care Analyst: Dg Aparicio MD Staging: Normal [facility] Comment on above: Result Comment: Stag e 1: Some kidney damage normal GFR Stage 2: Mild kidney damage GFR 60-89 Stage 3: Moderate kidney damage GFR 30-59 Stage 4: Severe kidney damage GFR 15-29 Stage 5: Severe kidney damage GFR <15 ESRD - chronic treatment by dialysis or transplant Performed By: #### M Gonzalo RENP, URI #### [facility] [address] [place] [address] Care Analyst: Loi Irene MD #### PTHNCA #### [facility] [employer] [address] [place], [place] [phone] Care Analyst: Dg Aparicio MD Urea nitrogen [Mass/Vol] 29 mg/dL High 8-23 [facility] Comment on above: Performed By: #### M ARMANDO Padgett, URI #### [facility] [address] [place] [address] Care Analyst: Loi Irene MD #### PTHNCA #### [facility] [address] [place], [place] [phone] Care Analyst: Dg Aparicio MD Albumin [Mass/Vol] 3.5 g/dL 3.5 - 5.2 g/dL [employer] Phone: Anion gap [Moles/Vol] 11 mmol/L 9 - 17 mmol/L [employer] Phone: Bun/Cre Ratio 20 [employer] Phone: Calcium [Mass/Vol] 9.3 mg/dL 8.6 - 10. 4 mg/dL [employer] Phone: Chloride [Moles/Vol] 103 mmol/L 98 - 10 7 mmol/L [employer] Phone: CO2 [Moles/Vol] 29 mmol/L 20 - 31 mmol/L [employer] Phone: Creatinine [Mass/Vol] 1.43 mg/dL High 0.50 - 0.90 mg/dL [employer] Phone: GFR 42 mL/min Low >60 [employer] Phone: GFR Non- 35 mL/min Low >60 [employer] Phone: Glucose [Mass/Vol] 131 mg/dL High 70 - 99 mg/dL [employer] Phone: Phosphate [Mass/Vol] 3.6 mg/dL 2.6 - 4 .5 mg/dL [employer] Phone: Potassium [Moles/Vol] 3.4 mmol/L Low 3.7 - 5.3 mmol/L [employer] Phone: Sodium [Moles/Vol] 143 mmol/L 135 - 144 mmol/L [employer] Phone: Urea nitrogen [Mass/Vol] 29 mg/dL High 8 - 23 mg/dL [employer] Phone: Uric Acidon 12-05-2020 Urate [Mass/Vol] 7.3 mg/dL High 2.4-5.7 [facility] Comment on above: Performed By: #### M GFROYP, URI #### [facility] [address] [place] [address] [place] [address] Care Analyst: Loi Irene MD #### PTHNCA #### [facility] [employer] [address] [place] [address] [id number] Care Analyst: Dg Aparicio MD Urate [Mass/Vol] 7.3 mg/dL High 2.4 - 5.7 mg/dL [facility] [employer] Phone: C-Reactive Proteinon 021 CRP [Mass/Vol] 7.8 mg/L High 0.0-5.0 [facility] Comment on above: Performed By: #### C DP, SED #### [facility] [address] [place] [address] Care Analyst: Loi Irene MD #### CRP #### [facility] [employer] [address] [place] [address] [id number] Care Analyst: Dg Aparicio MD CRP [Mass/Vol] 7.8 mg/L High 0 - 5 mg/L [employer] Phone: Interpretation and review of laboratory results Abnormal [employer] Phone: CBC Auto Differentialon 10-28 Basophils (Bld) [#/Vol] 10*3/uL M [employer] Phone: [phone] Basophils/100 WBC (Bld) 0 % 0 - 2 % M [employer] Phone: Differential Type NOT REPORTED [employer] Phone: Eosinophils (Bld) [#/Vol] 0.37 10*3/uL [employer] Phone: Eosinophils/100 WBC (Bld) 5 % High 1 - 4 % [employer] Phone: Erythrocyte distribution width (RBC) [Ratio] 17.7 % High 11.8 - 14.4 % [employer] Phone: Hematocrit (Bld) [Volume fraction] 36.9 % 36.3 - 47.1 % [employer] Phone: Hemoglobin (Bld) [Mass/Vol] 11.1 g/dL Low 11.9 - 15.1 g/dL [employer] Phone: Immature granulocytes (Bld) [#/Vol] 10*3/uL [employer] Phone: Immature granulocytes (Bld) [#/Vol] 0 % 0 [employer] Phone: Interpretation and review of laboratory results Abnormal [employer] Phone: Lymphocytes (Bld) [#/Vol] 1.74 10*3/uL [employer] Phone: Lymphocytes/100 WBC (Bld) 23 % Low 24 - 43 % [employer] Phone: MCH (RBC) [Entitic mass] 29.6 pg 25.2 - 33.5 pg [employer] Phone: MCHC (RBC) [Mass/Vol] 30.1 g/dL 28.4 - 34.8 g/dL [employer] Phone: MCV (RBC) [Entitic vol] 98.4 fL 82.6 - 102.9 fL [employer] Phone: Monocytes (Bld) [#/Vol] 0.76 10*3/uL [employer] Phone: Monocytes/100 WBC (Bld) 10 % 3 - 12 % M [employer] Phone: Platelet mean volume (Bld) [Entitic vol] 9.9 fL 8.1 - 13.5 fL [employer] Phone: Platelets (Bld) [#/Vol] NOT REPORTED [employer] Phone: Platelets (Bld) [#/Vol] 344 10*3/uL [employer] Phone: RBC (Bld) [#/Vol] 3.75 10*6/uL Low 3.95 - 5.1 1 m/uL [employer] Phone: RBC morphology finding Nom (Bld) NOT REPORTED [employer] Phone: Segmented neutrophils/100 WBC (Bld) 62 % 36 - 65 % [employer] Phone: Segs Absolute 4.61 [employer] Phone: WBC (Bld) [#/Vol] 7.5 10*3/uL [employer] Phone: WBC (Bld) [#/Vol] 0.0 10*3/uL 0.0 per 10 0 WBC [employer] Phone: WBC Morphology NOT REPORTED [facility] Phone: CBC with Diffon 11-07-2020 Abs. Basophil <0.03 Normal 0.00-0.20 [facility] Comment on above: Performed By: #### C DP, SED #### [facility] [address] [place] [address] Dr. [place] [phone] Care Analyst: Loi Irene MD #### CRP #### [address] [id number] Care Analyst: Dg Aparicio MD Abs.Imm.Granulocyte <0.03 Normal 0.00-0.30 [facility] Comment on above: Performed By: #### C DP, SED #### [address] [place] [phone] Care Analyst: Loi Irene MD #### CRP #### [address] [address] Care Analyst: Dg Aparicio MD Abs.Neutrophil (Seg) 4.61 k/uL Normal 1.50-8.10 [facility] Comment on above: Performed By: #### C DP, SED #### [address] [place] [id number] Care Analyst: Loi Irene MD #### CRP #### [address] [address] Care Analyst: Dg Aparicio MD Basophils/100 WBC (Bld) 0 % Normal 0-[address] [facility] Comment on above: Performed By: #### C DP, SED #### [address] [place], [place] [id number] Care Analyst: Loi Irene MD #### CRP #### [address] [address] Care Analyst: Dg Aparicio MD Eosinophils (Bld) [#/Vol] 0.37 10*3/uL Normal 0.00-0.44 [facility] Comment on above: Performed By: #### C DP, SED #### [facility] [address] [place] [address] Dr. [place] [phone] Care Analyst: Loi Irene MD #### CRP #### [address] [id number] Care Analyst: Dg Aparicio MD Eosinophils/100 WBC (Bld) 5 % High 1-4 [facility] Comment on above: Performed By: #### C DP, SED #### [address] [place] [address] Care Analyst: Loi Irene MD #### CRP #### [place] [address] Care Analyst: Dg Aparicio MD Erythrocyte distribution width (RBC) [Ratio] 17.7 % High 11.8-14.4 [facility] Comment on above: Performed By: #### C DP, SED #### [address] [place] [id number] ( Care Analyst: Loi Irene MD #### CRP #### [address] [address] Care Analyst: Dg Aparicio MD Hematocrit (Bld) [Volume fraction] 36.9 % Normal 36.3-47.1 [facility] Comment on above: Performed By: #### C DP, SED #### [address] [place] [id number] Care Analyst: Loi Irene MD #### CRP #### [address] [address] Care Analyst: Dg Aparicio MD Hemoglobin (Bld) [Mass/Vol] 11.1 g/dL Low 11.9-15.1 [facility] Comment on above: Performed By: #### C DP, SED #### [facility] [address] [place] [address] Care Analyst: Loi Irene MD #### CRP #### [address] [id number] Care Analyst: Dg Aparicio MD Immature granulocytes/100 WBC (Bld) 0 % Normal 0 [facility] Comment on above: Performed By: #### C DP, SED #### [facility] [address] [place] [id number] Care Analyst: Loi Irene MD #### CRP #### [address] [address] Care Analyst: Dg Aparicio MD Lymphocytes (Bld) [#/Vol] 1.74 10*3/uL Normal 1.10-3.70 [facility] Comment on above: Performed By: #### C DP, SED #### [facility] [address] [place] [address] Dr. [place] [id number] Care Analyst: Loi Irene MD #### CRP #### [address] [address] Care Analyst: Dg Aparicio MD Lymphocytes/100 WBC (Bld) 23 % Low 24-43 [facility] Comment on above: Performed By: #### C DP, SED #### [facility] [address] [place] [address] Dr. [place] [id number] Care Analyst: Loi Irene MD #### CRP #### [address] [address] Care Analyst: Dg Aparicio MD MCH (RBC) [Entitic mass] 29.6 pg Normal 25.2-33.5 [facility] Comment on above: Performed By: #### C DP, SED #### [facility] [address] [place], [place] [id number] Care Analyst: Loi Irene MD #### CRP #### [address] [id number] Care Analyst: Dg Aparicio MD MCHC (RBC) [Mass/Vol] 30.1 g/dL Normal 28.4-34.8 [facility] Comment on above: Performed By: #### C DP, SED #### [facility] [address] [place], [place] [id number] Care Analyst: Loi Irene MD #### CRP #### [address] [id number] Care Analyst: Dg Aparicio MD MCV (RBC) [Entitic vol] 98.4 fL Normal 82.6-102.9 [facility] Comment on above: Performed By: #### C DP, SED #### [facility] [address] [place] [place], [place] [id number] Care Analyst: Loi Irene MD #### CRP #### [address] [address] Care Analyst: Dg Aparicio MD Monocytes (Bld) [#/Vol] 0.76 10*3/uL Normal 0.10-1.20 [facility] Comment on above: Performed By: #### C DP, SED #### [facility] [address] [place], [place] [id number] Care Analyst: Loi Irene MD #### CRP #### [address] [address] Care Analyst: Dg Aparicio MD Monocytes/100 WBC (Bld) 10 % Normal 3-[address] [facility] Comment on above: Performed By: #### C DP, SED #### [address] [place] [phone] Care Analyst: Loi Irene MD #### CRP #### [address] 2020208 Care Analyst: Dg Aparicio MD Neutrophil (Seg) 62 % Normal 36-65 [facility] Comment on above: Performed By: #### C DP, SED #### [facility] [address] [place] [address] Dr. [place] [phone] Care Analyst: Loi Irene MD #### CRP #### [address] [address] Care Analyst: Dg Aparicio MD NRBC Automated 0.0 per 100 WBC Normal 0.0 [facility] Comment on above: Performed By: #### C DP, SED #### [address] [place] [phone] Care Analyst: Loi Irene MD #### CRP #### [place] [address] Care Analyst: Dg Aparicio MD Platelet mean volume (Bld) [Entitic vol] 9.9 fL Normal 8.1-13.5 [facility] Comment on above: Performed By: #### C DP, SED #### [address] [place] [phone] Care Analyst: Loi Irene MD #### CRP #### [place] [address] Care Analyst: Dg Aparicio MD Platelets (Bld) [#/Vol] 344 10*3/uL Normal 138-453 [facility] Comment on above: Performed By: #### C DP, SED #### [address] [place] [phone] Care Analyst: Loi Irene MD #### CRP #### [facility] [address] [place] [address] Care Analyst: Dg Aparicio MD RBC (Bld) [#/Vol] 3.75 10*6/uL Low 3.95-5.11 [facility] Comment on above: Performed By: #### C DP, SED #### [facility] [address] [place] [address] [place] [address] Care Analyst: Loi Irene MD #### CRP #### [address] [address] Care Analyst: Dg Aparicio MD WBC (Bld) [#/Vol] 7.5 10*3/uL Normal 3.5-11.3 [facility] Comment on above: Performed By: #### C DP, SED #### [address] [place] [address] Care Analyst: Loi Irene MD #### CRP #### [address] [address] Care Analyst: Dg Aparicio MD Auto Diff Performed NOT REPORTED Normal [facility] Comment on above: Performed By: #### C DP, SED #### [address] [place] [address] Care Analyst: Loi Irene MD #### CRP #### [address] [address] Care Analyst: Dg Aparicio MD Platelet Estimate NOT REPORTED Normal [facility] Comment on above: Performed By: #### C DP, SED #### [address] [place] [address] Care Analyst: Loi Irene MD #### CRP #### [address] [address] Care Analyst: Dg Aparicio MD RBC morphology finding Nom (Bld) NOT REPORTED Normal [facility] Comment on above: Performed By: #### C DP, SED #### [facility] [address] [place], [place] [phone] Care Analyst: Loi Irene MD #### CRP #### [facility] [address] [place], [place] [id number] Care Analyst: gD Aparicio MD WBC Morphology NOT REPORTED Normal [facility] Comment on above: Performed By: #### C DP, SED #### [facility] [address] [place], [place] [phone] Care Analyst: Loi Irene MD #### CRP #### [place] [address] [place] [address] Care Analyst: Dg Aparicio MD Sedimentation Rateon 021 Sedimentation Rate 51 mm High 0-20 [facility] Comment on above: Performed By: #### C DP, SED #### [facility] [address] [place], [place] [phone] Care Analyst: Loi Irene MD #### CRP #### [address] [address] Care Analyst: Dg Aparicio MD Interpretation and review of laboratory results Abnormal [facility] Phone: Sed Rate 51 mm High 0 - [address] [facility] Work Phone: Lipid Panelon 10-30-2020 Cholesterol [Mass/Vol] 147 mg/dL <200 [place], [place] Comment on above: Cholesterol Guidelines: <200 Desirable 200-240 Borderline >240 Undesirable Cholesterol in HDL [Mass/Vol] 50 mg/dL >40 [place], [place] Comment on above: HDL Guidelines: <40 Undesirable 40-59 Borderline >59 Desirable Cholesterol in LDL [Mass/Vol] 64 mg/dL 0 - 130 mg/dL [place], [place] Comment on above: LDL Guidelines: <100 Desirable 100-129 Near to/above Desirable 130-159 Borderline >159 Undesirable Direct (measured) LDL and calculated LDL are not interchangeable tests. Cholesterol in VLDL [Mass/Vol] NOT REPORTED High 1 - 30 mg/dL [place] Cholesterol.total/Vani sterol in HDL [Mass ratio] 2.9 {ratio} <5 [place] Interpretation and review of laboratory results Abnormal [place] Triglyceride [Mass/Vol] 166 mg/dL High <150 M [place] Comment on above: Triglyceride Guidelines: <150 Desirable 150-199 Borderline 200-499 High >499 Very high Based on AHA Guidelines for fasting triglyceride, June 2012. Lipid Profileon 10-30-2020 Cholesterol [Mass/Vol] 147 mg/dL Normal <200 [facility] Comment on above: Result Comment: Cholesterol Guidelines: <200 Desirable 200-240 Borderline >240 Undesirable Performed By: #### L IPR #### [address] [address] Care Analyst: Dg Aparicio MD Cholesterol in HDL [Mass/Vol] 50 mg/dL Normal >40 [facility] Comment on above: Result Comment: HDL Guidelines: <40 Undesirable 40-59 Borderline >59 Desirable Performed By: #### L IPR #### [facility] [address] [place] [address] Care Analyst: Dg Aparicio MD Cholesterol in LDL [Mass/Vol] 64 mg/dL Normal 0-130 [facility] Comment on above: Result Comment: LDL Guidelines: <100 Desirable 100-129 Near to/above Desirable 130-159 Borderline >159 Undesirable Direct (measured) LDL and calculated LDL are not interchangeable tests. Performed By: #### L IPR #### [facility] [address] [place] [address] Care Analyst: Dg Aparicio MD Cholesterol.total/Vani sterol in HDL [Mass ratio] 2.9 {ratio} Normal <5 [facility] Comment on above: Performed By: #### L IPR #### [facility] [address] [place] [address] Care Analyst: Dg Aparicio MD Triglyceride [Mass/Vol] 166 mg/dL High <[address] [facility] Comment on above: Result Comment: Triglyceride Guidelines: <150 Desirable 150-199 Borderline 200-499 High >499 Very high Based on AHA Guidelines for fasting triglyceride, June 2012. Performed By: #### L IPR #### [place] [address] [place] [address] Care Analyst: Dg Aparicio MD Cholesterol,VLDL NOT REPORTED Normal 10-26 [facility] Comment on above: Performed By: #### L IPR #### [address] [address] Care Analyst: Dg Aparicio MD C-Reactive Proteinon CRP [Mass/Vol] 51.2 mg/L High 0.0-5.0 [facility] Comment on above: Performed By: #### C DP #### [facility] [address] [place] [address] [place] [address] Care Analyst: Loi Irene MD #### CRP #### [facility] [address] [place] [address] Care Analyst: Dg Aparicio MD CRP [Mass/Vol] 51.2 mg/L High 0 - 5 mg/L [place] Interpretation and review of laboratory results Abnormal [place], [place] CBCon 10-23-2020 Erythrocyte distribution width (RBC) [Ratio] 16.5 % High 11.8-14.4 [facility] Comment on above: Performed By: #### C DP #### [facility] [address] [place] [address] Care Analyst: Loi Irene MD #### CRP #### [address] [address] Care Analyst: Dg Aparicio MD Hematocrit (Bld) [Volume fraction] 32.7 % Low 36.3-47.1 [facility] Comment on above: Performed By: #### C DP #### [facility] [address] [place], [place] [phone] Care Analyst: Loi Irene MD #### CRP #### [address] [id number] Care Analyst: Dg Aparicio MD Hemoglobin (Bld) [Mass/Vol] 10.0 g/dL Low 11.9-15.1 [facility] Comment on above: Performed By: #### C DP #### [facility] [address] [place], [place] [phone] Care Analyst: Loi Irene MD #### CRP #### [address] [id number] Care Analyst: Dg Aparicio MD MCH (RBC) [Entitic mass] 29.0 pg Normal 25.2-33.5 [facility] Comment on above: Performed By: #### C DP #### [facility] [address] [place] [address] Dr. [place], [place] [phone] Care Analyst: Loi Irene MD #### CRP #### [address] [address] Care Analyst: Dg Aparicio MD MCHC (RBC) [Mass/Vol] 30.6 g/dL Normal 28.4-34.8 [facility] Comment on above: Performed By: #### C DP #### [facility] [address] [place] [address] Dr. [place], [place] [id number] Care Analyst: Loi Irene MD #### CRP #### [address] [address] Care Analyst: Dg Aparicio MD MCV (RBC) [Entitic vol] 94.8 fL Normal 82.6-102.9 [facility] Comment on above: Performed By: #### C DP #### [facility] [address] [place], [place] [id number] Care Analyst: Loi Irene MD #### CRP #### [address] [id number] Care Analyst: Dg Aparicio MD NRBC Automated 0.0 per 100 WBC Normal 0.0 [facility] Comment on above: Performed By: #### C DP #### [facility] [address] [place] [place], [place] [phone] Care Analyst: Loi Irene MD #### CRP #### [address] [address] Care Analyst: Dg Aparicio MD Platelet mean volume (Bld) [Entitic vol] 9.6 fL Normal 8.1-13.5 [facility] Comment on above: Performed By: #### C DP #### [address] [place], [place] 9687583 Care Analyst: Loi Irene MD #### CRP #### [address] [address] Care Analyst: Dg Aparicio MD Platelets (Bld) [#/Vol] 478 10*3/uL High 138-453 [facility] Comment on above: Performed By: #### C DP #### [facility] [address] [place] [address] [place], [place] [phone] Care Analyst: Loi Irene MD #### CRP #### [address] [address] Care Analyst: Dg Aparicio MD RBC (Bld) [#/Vol] 3.45 10*6/uL Low 3.95-5.11 [facility] Comment on above: Performed By: #### C DP #### [facility] [address] [place] [address] [place] [address] Care Analyst: Loi Irene MD #### CRP #### [facility] [address] [place] [address] Care Analyst: Dg Aparicio MD WBC (Bld) [#/Vol] 8.2 10*3/uL Normal 3.5-11.3 [facility] Comment on above: Performed By: #### C DP #### [facility] [address] [place] [address] Care Analyst: Loi Irene MD #### CRP #### [facility] [address] [place] [address] Care Analyst: Dg Aparicio MD Erythrocyte distribution width (RBC) [Ratio] 16.5 % High 11.8 - 14.4 % [place] Hematocrit (Bld) [Volume fraction] 32.7 % Low 36.3 - 47.1 % [place] Hemoglobin (Bld) [Mass/Vol] 10.0 g/dL Low 11.9 - 15.1 g/dL [place] Interpretation and review of laboratory results Abnormal [place] MCH (RBC) [Entitic mass] 29.0 pg 25.2 - 33.5 pg [place] MCHC (RBC) [Mass/Vol] 30.6 g/dL 28.4 - 34.8 g/dL [place] MCV (RBC) [Entitic vol] 94.8 fL 82.6 - 102.9 fL [place] Platelet mean volume (Bld) [Entitic vol] 9.6 fL 8.1 - 13.5 fL [place] Platelets (Bld) [#/Vol] 478 10*3/uL High [place] RBC (Bld) [#/Vol] 3.45 10*6/uL Low 3.95 - 5.1 1 m/uL [place] WBC (Bld) [#/Vol] 8.2 10*3/uL [place] WBC (Bld) [#/Vol] 0.0 10*3/uL 0.0 per [address] [facility] [place] Comp Metabolic Profon 2020 (cont.) Normal [facility] Comment on above: Result Comment: Aver age GFR for 70 or more years old: 75 mL/min/1.73sq m Chronic Kidney Disease: <60 mL/min/1.73sq m Kidney failure: <15 mL/min/1.73sq m eGFR calculated using average adult body mass. Additional eGFR calculator available at: http://www.[employer]/multiple_crcl_2012.htm Performed By: #### C DP #### [facility] [address] [place] [address] [place] [address] Care Analyst: Loi Irene MD #### CRP #### [address] [id number] Care Analyst: Dg Aparicio MD Albumin [Mass/Vol] 3.0 g/dL Low 3.5-5.2 [facility] Comment on above: Performed By: #### C DP #### [facility] [address] [place] [address] [place] [address] Care Analyst: Loi Irene MD #### CRP #### [address] [id number] Care Analyst: Dg Aparicio MD Albumin/Glob Ratio 0.8 Low 1.0-2.5 [facility] Comment on above: Performed By: #### C DP #### [facility] [address] [place] [address] [place] [address] Care Analyst: Loi Irene MD #### CRP #### [address] [id number] Care Analyst: Dg Aparicio MD Alkaline Phos 105 U/L High 35-104 [facility] Comment on above: Performed By: #### C DP #### [facility] [address] [place] [address] [place] [address] Care Analyst: Loi Irene MD #### CRP #### [facility] [address] [place] [address] Care Analyst: Dg Aparicio MD ALT [Catalytic activity/Vol] 11 U/L Normal 5-33 [facility] Comment on above: Performed By: #### C DP #### [facility] [address] [place] [address] Care Analyst: Loi Irene MD #### CRP #### [address] [address] Care Analyst: Dg Aparicio MD Anion gap [Moles/Vol] 11 mmol/L Normal 9-17 [facility] Comment on above: Performed By: #### C DP #### [address] [place] [address] Care Analyst: Loi Irene MD #### CRP #### [address] [address] Care Analyst: Dg Aparicio MD AST [Catalytic activity/Vol] 14 U/L Normal <32 [facility] Comment on above: Performed By: #### C DP #### [facility] [address] [place] [address] [place] [address] Care Analyst: Loi Irene MD #### CRP #### [address] [address] Care Analyst: Dg Aparicio MD Bilirubin [Mass/Vol] 0.24 mg/dL Low 0.3-1.2 [facility] Comment on above: Performed By: #### C DP #### [facility] [address] [place] [address] [place] [address] Care Analyst: Loi Irene MD #### CRP #### [address] [place] [address] Care Analyst: Dg Aparicio MD BUN/CRE Ratio 22 High 9-20 [facility] Comment on above: Performed By: #### C DP #### [facility] [address] [place], [place] [id number] Care Analyst: Loi Irene MD #### CRP #### [address] [address] Care Analyst: Dg Aparicio MD Calcium [Mass/Vol] 8.9 mg/dL Normal 8.6-10.4 [facility] Comment on above: Performed By: #### C DP #### [facility] [address] [place] [address] Dr. [place], [place] [phone] Care Analyst: Loi Irene MD #### CRP #### [address] [address] Care Analyst: Dg Aparicio MD Chloride [Moles/Vol] 99 mmol/L Normal 98-107 [facility] Comment on above: Performed By: #### C DP #### [facility] [address] [place] [address] Care Analyst: Loi Irene MD #### CRP #### [address] [address] Care Analyst: Dg Aparicio MD CO2 [Moles/Vol] 28 mmol/L Normal 20-31 [facility] Comment on above: Performed By: #### C DP #### [facility] [address] [place], [place] 9463683 Care Analyst: Loi Irene MD #### CRP #### [address] [address] Care Analyst: Dg Aparicio MD Creatinine [Mass/Vol] 1.27 mg/dL High 0.50-0.90 [facility] Comment on above: Performed By: #### C DP #### [facility] [address] [place] [address] Care Analyst: Loi Irene MD #### CRP #### [facility] [address] [place] [address] Care Analyst: Dg Aparicio MD GFR, Amer 49 mL/min Low >60 [facility] Comment on above: Performed By: #### C DP #### [facility] [address] [place] [address] Care Analyst: Loi Irene MD #### CRP #### [address] [address] Care Analyst: Dg Aparicio MD GFR,non Amer 40 mL/min Low >60 [facility] Comment on above: Performed By: #### C DP #### [facility] [address] [place] [address] [place] [address] Care Analyst: Loi Irene MD #### CRP #### [address] [address] Care Analyst: Dg Aparicio MD Glucose [Mass/Vol] 159 mg/dL High 70-99 [facility] Comment on above: Performed By: #### C DP #### [facility] [address] [place] [address] Care Analyst: Loi Irene MD #### CRP #### [facility] [address] [place] [address] Care Analyst: Dg Aparicio MD Potassium [Moles/Vol] 3.3 mmol/L Low 3.7-5.3 [facility] Comment on above: Performed By: #### C DP #### [facility] [address] [place], [place] [phone] Care Analyst: Loi Irene MD #### CRP #### [place] [address] [place] [address] Care Analyst: Dg Aparicio MD Protein [Mass/Vol] 6.7 g/dL Normal 6.4-8.3 [facility] Comment on above: Performed By: #### C DP #### [facility] [address] [place] [address] Dr. [place], [place] [phone] Care Analyst: Loi Irene MD #### CRP #### [address] [address] Care Analyst: Dg Aparicio MD Sodium [Moles/Vol] 138 mmol/L Normal 135-144 [facility] Comment on above: Performed By: #### C DP #### [address] [place] [address] Care Analyst: Loi Irene MD #### CRP #### [address] [address] Care Analyst: Dg Aparicio MD Staging: Normal [facility] Comment on above: Result Comment: Stag e 1: Some kidney damage normal GFR Stage 2: Mild kidney damage GFR 60-89 Stage 3: Moderate kidney damage GFR 30-59 Stage 4: Severe kidney damage GFR 15-29 Stage 5: Severe kidney damage GFR <15 ESRD - chronic treatment by dialysis or transplant Performed By: #### C DP #### [facility] [address] [place] [address] Dr. [place], [place] [phone] Care Analyst: Loi Irene MD #### CRP #### [address] [address] Care Analyst: Dg Aparicio MD Urea nitrogen [Mass/Vol] 28 mg/dL High 8-23 [facility] Comment on above: Performed By: #### C DP #### [address] [place], [place] [id number] Care Analyst: Loi Irene MD #### CRP #### [facility] [address] [place] [id number] Care Analyst: Dg Aparicio MD Comprehensive Metabolic Pane [facility] 10-23-2020 Albumin [Mass/Vol] 3 g/dL Low 3.5 - 5.2 g/dL [place] Albumin/Globulin [Mass ratio] 0.8 {ratio} Low [place] ALP [Catalytic activity/Vol] 105 U/L High 35 - 104 U/L [place] ALT [Catalytic activity/Vol] 11 U/L 5 - 33 U/L [place] Anion gap [Moles/Vol] 11 mmol/L 9 - 17 mmol/L [place] AST [Catalytic activity/Vol] 14 U/L <32 [place] Bilirubin Ql (U) 0.24 mg/dL Low 0.3 - 1.2 mg/dL [place] Bun/Cre Ratio 22 High [place] Calcium [Mass/Vol] 8.9 mg/dL 8.6 - 10. 4 mg/dL [place] Chloride [Moles/Vol] 99 mmol/L 98 - 10 7 mmol/L [place] CO2 [Moles/Vol] 28 mmol/L 20 - 31 mmol/L [place] Creatinine [Mass/Vol] 1.27 mg/dL High 0.5 - 0.9 mg/dL [place] GFR 49 mL/min Low >60 [place] GFR Non- 40 mL/min Low >60 [place] Glucose [Mass/Vol] 159 mg/dL High 70 - 99 mg/dL [place] Interpretation and review of laboratory results Abnormal [place] Potassium [Moles/Vol] 3.3 mmol/L Low 3.7 - 5.3 mmol/L [place] Protein [Mass/Vol] 6.7 g/dL 6.4 - 8.3 g/dL [place] Sodium [Moles/Vol] 138 mmol/L 135 - 144 mmol/L [place] Urea nitrogen [Mass/Vol] 28 mg/dL High 8 - 23 mg/dL [place] Metabolic Panelon 10-23-2020 GFR/1.73 sq M predicted among non-blacks MDRD (S/P/Bld) [Vol rate/Area] [place] Comment on above: Average GFR for 70 o r more years old: 75 mL/min/1.73sq m Chronic Kidney Disease: <60 mL/min/1.73sq m Kidney failure: <15 mL/min/1.73sq m eGFR calculated using average adult body mass. Additional eGFR calculator available at: http://www.[employer]/multiple_crcl_2012.htm Stage 1: Some kidney damage normal GFR Stage 2: Mild kidney damage GFR 60-89 Stage 3: Moderate kidney damage GFR 30-59 Stage 4: Severe kidney damage GFR 15-29 Stage 5: Severe kidney damage GFR <15 ESRD - chronic treatment by dialysis or transplant Sedimentation Rateon 021 Sedimentation Rate 101 mm High 0-20 [facility] Comment on above: Performed By: #### C DP #### [facility] [address] [place] [address] Care Analyst: Loi Irene MD #### CRP #### [facility] [address] [place] [address] Care Analyst: Dg Aparicio MD Interpretation and review of laboratory results Abnormal [place] Sed Rate 101 mm High 0 - 20 mm [place] C-Reactive Proteinon 020 CRP [Mass/Vol] 33.8 mg/L High 0 - 5 mg/L [place] Interpretation and review of laboratory results Abnormal [place] CBCon 09-26-2020 Erythrocyte distribution width (RBC) [Ratio] 14.3 % 11.8 - 14.4 % [place] Hematocrit (Bld) [Volume fraction] 38.8 % 36.3 - 47.1 % [place] Hemoglobin (Bld) [Mass/Vol] 11.8 g/dL Low 11.9 - 15.1 g/dL [place] Interpretation and review of laboratory results Abnormal [place] MCH (RBC) [Entitic mass] 28.5 pg 25.2 - 33.5 pg [place] MCHC (RBC) [Mass/Vol] 30.4 g/dL 28.4 - 34.8 g/dL [place] MCV (RBC) [Entitic vol] 93.7 fL 82.6 - 102.9 fL [place] Platelet mean volume (Bld) [Entitic vol] 9.9 fL 8.1 - 13.5 fL [place] Platelets (Bld) [#/Vol] 230 10*3/uL [place] RBC (Bld) [#/Vol] 4.14 10*6/uL 3.95 - 5.1 1 m/uL [place] WBC (Bld) [#/Vol] 6.9 10*3/uL [place] WBC (Bld) [#/Vol] 0.0 10*3/uL 0.0 per 10 0 WBC [place] Comprehensive Metabolic Pane [facility] 09-26-2020 Albumin [Mass/Vol] 3.4 g/dL Low 3.5 - 5.2 g/dL [place] Albumin/Globulin [Mass ratio] 1.0 {ratio} [place] ALP [Catalytic activity/Vol] 131 U/L High 35 - 104 U/L [place] ALT [Catalytic activity/Vol] 23 U/L 5 - 33 U/L [place] Anion gap [Moles/Vol] 13 mmol/L 9 - 17 mmol/L [place] AST [Catalytic activity/Vol] 21 U/L <32 [place] Bilirubin Ql (U) 0.36 mg/dL 0.3 - 1.2 mg/dL [place] Bun/Cre Ratio 24 High [place] Calcium [Mass/Vol] 8.7 mg/dL 8.6 - 10. 4 mg/dL [place] Chloride [Moles/Vol] 96 mmol/L Low 98 - 10 7 mmol/L [place] CO2 [Moles/Vol] 28 mmol/L 20 - 31 mmol/L [place] Creatinine [Mass/Vol] 1.27 mg/dL High 0.5 - 0.9 mg/dL [place] GFR 49 mL/min Low >60 [place] GFR Non- 40 mL/min Low >60 [place] Glucose [Mass/Vol] 138 mg/dL High 70 - 99 mg/dL [place] Interpretation and review of laboratory results Abnormal [place] Potassium [Moles/Vol] 3.4 mmol/L Low 3.7 - 5.3 mmol/L [place] Protein [Mass/Vol] 6.7 g/dL 6.4 - 8.3 g/dL [place] Sodium [Moles/Vol] 137 mmol/L 135 - 144 mmol/L [place] Urea nitrogen [Mass/Vol] 31 mg/dL High 8 - 23 mg/dL [place] Magnesiumon 09-26-2020 Magnesium [Mass/Vol] 2.1 mg/dL 1.6 - 2 .6 mg/dL [place] Metabolic Panelon 09-26-2020 GFR/1.73 sq M predicted among non-blacks MDRD (S/P/Bld) [Vol rate/Area] [place] Comment on above: Average GFR for 70 o r more years old: 75 mL/min/1.73sq m Chronic Kidney Disease: <60 mL/min/1.73sq m Kidney failure: <15 mL/min/1.73sq m eGFR calculated using average adult body mass. Additional eGFR calculator available at: http://www.[employer]/multiple_crcl_2012.htm Stage 1: Some kidney damage normal GFR Stage 2: Mild kidney damage GFR 60-89 Stage 3: Moderate kidney damage GFR 30-59 Stage 4: Severe kidney damage GFR 15-29 Stage 5: Severe kidney damage GFR <15 ESRD - chronic treatment by dialysis or transplant Sedimentation Rateon 020 Interpretation and review of laboratory results Abnormal [place] Sed Rate 53 mm High 0 - 20 mm [place] C-Reactive Proteinon 020 CRP [Mass/Vol] 43.7 mg/L High 0 - 5 mg/L [place] Interpretation and review of laboratory results Abnormal [place] CBCon 09-18-2020 Erythrocyte distribution width (RBC) [Ratio] 14.0 % 11.8 - 14.4 % [place] Hematocrit (Bld) [Volume fraction] 37.2 % 36.3 - 47.1 % [place] Hemoglobin (Bld) [Mass/Vol] 11.4 g/dL Low 11.9 - 15.1 g/dL [place] Interpretation and review of laboratory results Abnormal [place] MCH (RBC) [Entitic mass] 29.2 pg 25.2 - 33.5 pg [place] MCHC (RBC) [Mass/Vol] 30.6 g/dL 28.4 - 34.8 g/dL [place] MCV (RBC) [Entitic vol] 95.4 fL 82.6 - 102.9 fL [place] Platelet mean volume (Bld) [Entitic vol] 10.6 fL 8.1 - 13.5 fL [place] Platelets (Bld) [#/Vol] 254 10*3/uL [place] RBC (Bld) [#/Vol] 3.90 10*6/uL Low 3.95 - 5.1 1 m/uL [place] WBC (Bld) [#/Vol] 8.3 10*3/uL [place] WBC (Bld) [#/Vol] 0.0 10*3/uL 0.0 per 10 0 WBC [place] Comprehensive Metabolic Pane riddhi 09-18-2020 Albumin [Mass/Vol] 3.3 g/dL Low 3.5 - 5.2 g/dL [place] Albumin/Globulin [Mass ratio] 1.1 {ratio} [place] ALP [Catalytic activity/Vol] 137 U/L High 35 - 104 U/L [place] ALT [Catalytic activity/Vol] 14 U/L 5 - 33 U/L [place] Anion gap [Moles/Vol] 8 mmol/L Low 9 - 17 mmol/L [place] AST [Catalytic activity/Vol] 12 U/L <32 [place] Bilirubin Ql (U) 0.27 mg/dL Low 0.3 - 1.2 mg/dL [place] Bun/Cre Ratio 30 High [place] Calcium [Mass/Vol] 8.9 mg/dL 8.6 - 10. 4 mg/dL [place] Chloride [Moles/Vol] 95 mmol/L Low 98 - 10 7 mmol/L [place] CO2 [Moles/Vol] 30 mmol/L 20 - 31 mmol/L [place] Creatinine [Mass/Vol] 1.21 mg/dL High 0.5 - 0.9 mg/dL [place] GFR 52 mL/min Low >60 [place] GFR Non- 42 mL/min Low >60 [place] Glucose [Mass/Vol] 206 mg/dL High 70 - 99 mg/dL [place] Interpretation and review of laboratory results Abnormal [place] Potassium [Moles/Vol] 2.9 mmol/L Critically low 3.7 - 5.3 mmol/L [place] Protein [Mass/Vol] 6.4 g/dL 6.4 - 8.3 g/dL [place] Sodium [Moles/Vol] 133 mmol/L Low 135 - 144 mmol/L [place] Urea nitrogen [Mass/Vol] 36 mg/dL High 8 - 23 mg/dL [place] Metabolic Panelon 09-18-2020 GFR/1.73 sq M predicted among non-blacks MDRD (S/P/Bld) [Vol rate/Area] [place] Comment on above: Average GFR for 70 o r more years old: 75 mL/min/1.73sq m Chronic Kidney Disease: <60 mL/min/1.73sq m Kidney failure: <15 mL/min/1.73sq m eGFR calculated using average adult body mass. Additional eGFR calculator available at: http://www.[employer]/multiple_crcl_2012.htm Stage 1: Some kidney damage normal GFR Stage 2: Mild kidney damage GFR 60-89 Stage 3: Moderate kidney damage GFR 30-59 Stage 4: Severe kidney damage GFR 15-29 Stage 5: Severe kidney damage GFR <15 ESRD - chronic treatment by dialysis or transplant Sedimentation Rateon 020 Interpretation and review of laboratory results Abnormal [place] Sed Rate 37 mm High 0 - 20 mm [place] C-Reactive Proteinon 020 CRP [Mass/Vol] 17.9 mg/L High 0 - 5 mg/L [place] Interpretation and review of laboratory results Abnormal [place] CBCon 09-11-2020 Erythrocyte distribution width (RBC) [Ratio] 13.8 % 11.8 - 14.4 % [place] Hematocrit (Bld) [Volume fraction] 37.9 % 36.3 - 47.1 % [place] Hemoglobin (Bld) [Mass/Vol] 11.4 g/dL Low 11.9 - 15.1 g/dL [place] Interpretation and review of laboratory results Abnormal [place] MCH (RBC) [Entitic mass] 28.4 pg 25.2 - 33.5 pg [place] MCHC (RBC) [Mass/Vol] 30.1 g/dL 28.4 - 34.8 g/dL [place] MCV (RBC) [Entitic vol] 94.5 fL 82.6 - 102.9 fL [place] Platelet mean volume (Bld) [Entitic vol] 10.7 fL 8.1 - 13.5 fL [place] Platelets (Bld) [#/Vol] 269 10*3/uL [place] RBC (Bld) [#/Vol] 4.01 10*6/uL 3.95 - 5.1 1 m/uL [place] WBC (Bld) [#/Vol] 0.0 10*3/uL 0.0 per 10 0 WBC [place] WBC (Bld) [#/Vol] 7.1 10*3/uL [place] Comprehensive Metabolic Pane riddhi 09-11-2020 Albumin [Mass/Vol] 3.8 g/dL 3.5 - 5.2 g/dL [place] Albumin/Globulin [Mass ratio] 1.7 {ratio} [place] ALP [Catalytic activity/Vol] 145 U/L High 35 - 104 U/L [place] ALT [Catalytic activity/Vol] 14 U/L 5 - 33 U/L [place] Anion gap [Moles/Vol] 13 mmol/L 9 - 17 mmol/L [place] AST [Catalytic activity/Vol] 12 U/L <32 [place] Bilirubin Ql (U) 0.28 mg/dL Low 0.3 - 1.2 mg/dL [place] Bun/Cre Ratio 35 High [place] Calcium [Mass/Vol] 9.3 mg/dL 8.6 - 10. 4 mg/dL [place] Chloride [Moles/Vol] 98 mmol/L 98 - 10 7 mmol/L [place] CO2 [Moles/Vol] 28 mmol/L 20 - 31 mmol/L [place] Creatinine [Mass/Vol] 1.33 mg/dL High 0.5 - 0.9 mg/dL [place] GFR 46 mL/min Low >60 [place] GFR Non- 38 mL/min Low >60 [place] Glucose [Mass/Vol] 150 mg/dL High 70 - 99 mg/dL [place] Interpretation and review of laboratory results Abnormal [place] Potassium [Moles/Vol] 3.0 mmol/L Low 3.7 - 5.3 mmol/L [place] Protein [Mass/Vol] 6.1 g/dL Low 6.4 - 8.3 g/dL [place] Sodium [Moles/Vol] 139 mmol/L 135 - 144 mmol/L [place] Urea nitrogen [Mass/Vol] 46 mg/dL High 8 - 23 mg/dL [place] Metabolic Panelon 09-11-2020 GFR/1.73 sq M predicted among non-blacks MDRD (S/P/Bld) [Vol rate/Area] [place] Comment on above: Average GFR for 70 o r more years old: 75 mL/min/1.73sq m Chronic Kidney Disease: <60 mL/min/1.73sq m Kidney failure: <15 mL/min/1.73sq m eGFR calculated using average adult body mass. Additional eGFR calculator available at: http://www.[employer]/multiple_crcl_2012.htm Stage 1: Some kidney damage normal GFR Stage 2: Mild kidney damage GFR 60-89 Stage 3: Moderate kidney damage GFR 30-59 Stage 4: Severe kidney damage GFR 15-29 Stage 5: Severe kidney damage GFR <15 ESRD - chronic treatment by dialysis or transplant Sedimentation Rateon 020 Interpretation and review of laboratory results Abnormal [place] Sed Rate 34 mm High 0 - 20 mm [place] C-Reactive Proteinon 020 CRP [Mass/Vol] 11.1 mg/L High 0 - 5 mg/L [place] Interpretation and review of laboratory results Abnormal [place] Comprehensive Metabolic Pane riddhi 09-06-2020 Albumin [Mass/Vol] 3.8 g/dL 3.5 - 5.2 g/dL [place] Albumin/Globulin [Mass ratio] 1.2 {ratio} [place] ALP [Catalytic activity/Vol] 149 U/L High 35 - 104 U/L [place] ALT [Catalytic activity/Vol] 18 U/L 5 - 33 U/L [place] Anion gap [Moles/Vol] 13 mmol/L 9 - 17 mmol/L [place] AST [Catalytic activity/Vol] 18 U/L <32 [place] Bilirubin Ql (U) 0.28 mg/dL Low 0.3 - 1.2 mg/dL [place] Bun/Cre Ratio 33 High [place] Calcium [Mass/Vol] 9.8 mg/dL 8.6 - 10. 4 mg/dL [place] Chloride [Moles/Vol] 97 mmol/L Low 98 - 10 7 mmol/L [place] CO2 [Moles/Vol] 28 mmol/L 20 - 31 mmol/L [place] Creatinine [Mass/Vol] 1.33 mg/dL High 0.5 - 0.9 mg/dL [place] GFR 46 mL/min Low >60 [place] GFR Non- 38 mL/min Low >60 [place] Glucose [Mass/Vol] 209 mg/dL High 70 - 99 mg/dL [place] Interpretation and review of laboratory results Abnormal [place] Potassium [Moles/Vol] 3.0 mmol/L Low 3.7 - 5.3 mmol/L [place] Protein [Mass/Vol] 7.0 g/dL 6.4 - 8.3 g/dL [place] Sodium [Moles/Vol] 138 mmol/L 135 - 144 mmol/L [place] Urea nitrogen [Mass/Vol] 44 mg/dL High 8 - 23 mg/dL [place] Metabolic Panelon 09-06-2020 GFR/1.73 sq M predicted among non-blacks MDRD (S/P/Bld) [Vol rate/Area] [place] Comment on above: Stage 1: Some [...] body mass. Additional eGFR calculator available at: http://www.[employer]/multiple_crcl_2012.htm CBCon 09-05-2020 Erythrocyte distribution width (RBC) [Ratio] 13.9 % 11.8 - 14.4 % [place] Hematocrit (Bld) [Volume fraction] 39.5 % 36.3 - 47.1 % [place] Hemoglobin (Bld) [Mass/Vol] 12.0 g/dL 11.9 - 15.1 g/dL [place] MCH (RBC) [Entitic mass] 29.0 pg 25.2 - 33.5 pg [place] MCHC (RBC) [Mass/Vol] 30.4 g/dL 28.4 - 34.8 g/dL [place] MCV (RBC) [Entitic vol] 95.4 fL 82.6 - 102.9 fL [place] Platelet mean volume (Bld) [Entitic vol] 10.3 fL 8.1 - 13.5 fL [place] Platelets (Bld) [#/Vol] 295 10*3/uL [place] RBC (Bld) [#/Vol] 4.14 10*6/uL 3.95 - 5.1 1 m/uL [place] WBC (Bld) [#/Vol] 7.8 10*3/uL [place] WBC (Bld) [#/Vol] 0.0 10*3/uL 0.0 per 10 0 WBC [place] Comprehensive Metabolic Pane riddhi 09-05-2020 Albumin [Mass/Vol] 3.9 g/dL 3.5 - 5.2 g/dL [place] Albumin/Globulin [Mass ratio] 1.3 {ratio} [place] ALP [Catalytic activity/Vol] 143 U/L High 35 - 104 U/L [place] ALT [Catalytic activity/Vol] 15 U/L 5 - 33 U/L [place] Anion gap [Moles/Vol] 12 mmol/L 9 - 17 mmol/L [place] AST [Catalytic activity/Vol] 17 U/L <32 [place] Bilirubin Ql (U) 0.32 mg/dL 0.3 - 1.2 mg/dL [place] Bun/Cre Ratio 39 High [place] Calcium [Mass/Vol] 9.5 mg/dL 8.6 - 10. 4 mg/dL [place] Chloride [Moles/Vol] 100 mmol/L 98 - 10 7 mmol/L [place] CO2 [Moles/Vol] 29 mmol/L 20 - 31 mmol/L [place] Creatinine [Mass/Vol] 1.29 mg/dL High 0.5 - 0.9 mg/dL [place] GFR 48 mL/min Low >60 [place] GFR Non- 39 mL/min Low >60 [place] Glucose [Mass/Vol] 191 mg/dL High 70 - 99 mg/dL [place] Interpretation and review of laboratory results Abnormal [place] Potassium [Moles/Vol] 3.3 mmol/L Low 3.7 - 5.3 mmol/L [place] Protein [Mass/Vol] 7.0 g/dL 6.4 - 8.3 g/dL [place] Sodium [Moles/Vol] 141 mmol/L 135 - 144 mmol/L [place] Urea nitrogen [Mass/Vol] 50 mg/dL High 8 - 23 mg/dL [place] Metabolic Panelon 09-05-2020 GFR/1.73 sq M predicted among non-blacks MDRD (S/P/Bld) [Vol rate/Area] [place] Comment on above: Stage 1: Some [...] body mass. Additional eGFR calculator available at: http://www.[employer]/multiple_crcl_2012.htm Sedimentation Rateon 020 Interpretation and review of laboratory results Abnormal [place] Sed Rate 38 mm High 0 - 20 mm [place] C-Reactive Proteinon 020 CRP [Mass/Vol] 9.3 mg/L High 0 - 5 mg/L [place] Interpretation and review of laboratory results Abnormal [place] CBCon 08-28-2020 Erythrocyte distribution width (RBC) [Ratio] 13.5 % 11.8 - 14.4 % [place] Hematocrit (Bld) [Volume fraction] 37.9 % 36.3 - 47.1 % [place] Hemoglobin (Bld) [Mass/Vol] 11.9 g/dL 11.9 - 15.1 g/dL [place] MCH (RBC) [Entitic mass] 29.3 pg 25.2 - 33.5 pg [place] MCHC (RBC) [Mass/Vol] 31.4 g/dL 28.4 - 34.8 g/dL [place] MCV (RBC) [Entitic vol] 93.3 fL 82.6 - 102.9 fL [place] Platelet mean volume (Bld) [Entitic vol] 10.1 fL 8.1 - 13.5 fL [place] Platelets (Bld) [#/Vol] 303 10*3/uL [place] RBC (Bld) [#/Vol] 4.06 10*6/uL 3.95 - 5.1 1 m/uL [place] WBC (Bld) [#/Vol] 6.9 10*3/uL [place] WBC (Bld) [#/Vol] 0.0 10*3/uL 0.0 per 10 0 WBC [place] Comprehensive Metabolic Pane riddhi 08-28-2020 Albumin [Mass/Vol] 3.5 g/dL 3.5 - 5.2 g/dL [place] Albumin/Globulin [Mass ratio] 1.2 {ratio} [place] ALP [Catalytic activity/Vol] 134 U/L High 35 - 104 U/L [place] ALT [Catalytic activity/Vol] 12 U/L 5 - 33 U/L [place] Anion gap [Moles/Vol] 11 mmol/L 9 - 17 mmol/L [place] AST [Catalytic activity/Vol] 14 U/L <32 [place] Bilirubin Ql (U) 0.22 mg/dL Low 0.3 - 1.2 mg/dL [place] Bun/Cre Ratio 38 High [place] Calcium [Mass/Vol] 9.1 mg/dL 8.6 - 10. 4 mg/dL [place] Chloride [Moles/Vol] 105 mmol/L 98 - 10 7 mmol/L [place] CO2 [Moles/Vol] 27 mmol/L 20 - 31 mmol/L [place] Creatinine [Mass/Vol] 1.13 mg/dL High 0.5 - 0.9 mg/dL [place] GFR 56 mL/min Low >60 [place] GFR Non- 46 mL/min Low >60 [place] Glucose [Mass/Vol] 174 mg/dL High 70 - 99 mg/dL [place] Interpretation and review of laboratory results Abnormal [place] Potassium [Moles/Vol] 3.5 mmol/L Low 3.7 - 5.3 mmol/L [place] Protein [Mass/Vol] 6.4 g/dL 6.4 - 8.3 g/dL [place] Sodium [Moles/Vol] 143 mmol/L 135 - 144 mmol/L [place] Urea nitrogen [Mass/Vol] 43 mg/dL High 8 - 23 mg/dL [place] Metabolic Panelon 08-28-2020 GFR/1.73 sq M predicted among non-blacks MDRD (S/P/Bld) [Vol rate/Area] [place] Comment on above: Average GFR for 70 o r more years old: 75 mL/min/1.73sq m Chronic Kidney Disease: <60 mL/min/1.73sq m Kidney failure: <15 mL/min/1.73sq m eGFR calculated using average adult body mass. Additional eGFR calculator available at: http://www.[employer]/multiple_crcl_2012.htm Stage 1: Some kidney damage normal GFR Stage 2: Mild kidney damage GFR 60-89 Stage 3: Moderate kidney damage GFR 30-59 Stage 4: Severe kidney damage GFR 15-29 Stage 5: Severe kidney damage GFR <15 ESRD - chronic treatment by dialysis or transplant Sedimentation Rateon 020 Interpretation and review of laboratory results Abnormal [place] Sed Rate 30 mm High 0 - 20 mm [place] Infectious Disease Office/Cl inic Noteon 08-27-2020 [...] cephalexin and antibiotics to be adjusted by halfway physician based on culture. Problem List/Past Medical [...] oral tablet, 2 tabs, Oral, q4hr, PRN Bill Packet, 1 packets, Oral, BID Melatonin 5 [...] data available (MRI) Electronically signed by Manuel Ibarra MD 08/27/20 15:20 EST C-reactive protein has come back showing elevation of 26.8 with upper limit of normal being 5. This may have been related to the urinary tract infection. Continue to monitor for any changes in the hip area or the leg ulcer area. Electronically signed by Manuel Ibarra MD 08/29/20 09:[address] [facility] Microscopic Urinalysison Amorphous, UA NOT REPORTED None [facility], [place] Bacteria, UA 4+ Abnormal None [facility], [place] Casts UA NOT REPORTED /LPF [facility], [place] Crystals, UA 10 TO 20 Abnormal None /HPF [facility], [place] Crystals, UA TRIPLE PHOSPHATE Abnormal None /HPF [facility], [place] Epithelial Cells UA 5 TO 10 [facility], [place] Interpretation and review of laboratory results Abnormal [facility], [place] Mucus, UA NOT REPORTED None [facility], [place] Other Observations UA NOT REPORTED NOT REQ. M [facility], [place] RBC (U) [#/Vol] 20 TO 50 [facility], [place] Renal Epithelial, UA NOT REPORTED 0 /HPF [facility] [place] Trichomonas, UA NOT REPORTED None [facility] WBC, UA GREATER THAN 100 [facility] Yeast, UA NOT REPORTED None [facility] [place] - [facility] Provider Letteron 08-27-2020 Provider Letter Justino Dhaliwal DO [address] [place] [address] Re: Jesús Ovidio Date of Visit: 08/27/[address] Dhaliwal, Thank you for your referral to my office. Attached you will find the most recent office visit note. Please call if you have any questions or concerns. Sincerely, Manuel Ibarra MD [address] [place] [address], [address] [place] [address] The following document(s) were included in the letter: August 27, 2020 15:16:22 EST - (08/27/2020) Telehealth Office Visit Note Normal [facility] Urinalysison 08-27-2020 Bilirubin Urine Negative NEGATIVE [facility] [place] Color, UA YELLOW YELLOW [facility] Glucose, Ur Negative NEGATIVE [facility] Interpretation and review of laboratory results Abnormal [facility] Ketones Ql (U) Negative NEGATIVE [facility] [place] Leukocyte esterase Test strip Ql (U) LARGE Abnormal NEGATIVE [facility] [place] Nitrite, Urine Negative NEGATIVE [facility] [place] pH, UA >=9.0 [facility] Protein (U) [Mass/Vol] 2+ Abnormal NEGATIVE [facility] [place] Specific [place], UA 1.010 [facility] [place] Turbidity UA CLOUDY Abnormal CLEAR [facility] [place] Urinalysis Comments NOT REPORTED [facility] Urine Hgb Negative NEGATIVE [facility] [place] Urobilinogen, Urine Normal Normal [facility] C-Reactive Proteinon 020 CRP [Mass/Vol] 26.8 mg/L High 0 - 5 mg/L [facility] Interpretation and review of laboratory results Abnormal [facility] CBCon 08-21-2020 Erythrocyte distribution width (RBC) [Ratio] 13.7 % 11.8 - 14.4 % [place] Hematocrit (Bld) [Volume fraction] 40.0 % 36.3 - 47.1 % [place] Hemoglobin (Bld) [Mass/Vol] 11.9 g/dL 11.9 - 15.1 g/dL [place] MCH (RBC) [Entitic mass] 29.0 pg 25.2 - 33.5 pg [place] MCHC (RBC) [Mass/Vol] 29.8 g/dL 28.4 - 34.8 g/dL [place] MCV (RBC) [Entitic vol] 97.3 fL 82.6 - 102.9 fL [place] Platelet mean volume (Bld) [Entitic vol] 10.3 fL 8.1 - 13.5 fL [place] Platelets (Bld) [#/Vol] 380 10*3/uL [place] RBC (Bld) [#/Vol] 4.11 10*6/uL 3.95 - 5.1 1 m/uL [place] WBC (Bld) [#/Vol] 0.0 10*3/uL 0.0 per 10 0 WBC [place] WBC (Bld) [#/Vol] 6.8 10*3/uL [place] Comprehensive Metabolic Pane riddhi 08-21-2020 Albumin [Mass/Vol] 4 g/dL 3.5 - 5.2 g/dL [place] Albumin/Globulin [Mass ratio] 1.2 {ratio} [place] ALP [Catalytic activity/Vol] 143 U/L High 35 - 104 U/L [place] ALT [Catalytic activity/Vol] 13 U/L 5 - 33 U/L [place] Anion gap [Moles/Vol] 14 mmol/L 9 - 17 mmol/L [place] AST [Catalytic activity/Vol] 14 U/L <32 [place] Bilirubin Ql (U) 0.18 mg/dL Low 0.3 - 1.2 mg/dL [place] Bun/Cre Ratio 38 High [place] Calcium [Mass/Vol] 10.0 mg/dL 8.6 - 10. 4 mg/dL [place] Chloride [Moles/Vol] 102 mmol/L 98 - 10 7 mmol/L [place] CO2 [Moles/Vol] 27 mmol/L 20 - 31 mmol/L [place] Creatinine [Mass/Vol] 1.57 mg/dL High 0.5 - 0.9 mg/dL [place] GFR 38 mL/min Low >60 [place] GFR Non- 31 mL/min Low >60 [place] Glucose [Mass/Vol] 123 mg/dL High 70 - 99 mg/dL [place] Interpretation and review of laboratory results Abnormal [place] Potassium [Moles/Vol] 3.8 mmol/L 3.7 - 5.3 mmol/L [place] Protein [Mass/Vol] 7.4 g/dL 6.4 - 8.3 g/dL [place] Sodium [Moles/Vol] 143 mmol/L 135 - 144 mmol/L [place] Urea nitrogen [Mass/Vol] 60 mg/dL High 8 - 23 mg/dL [place] Metabolic Panelon 08-21-2020 GFR/1.73 sq M predicted among non-blacks MDRD (S/P/Bld) [Vol rate/Area] [place] Comment on above: Average GFR for 70 o r more years old: 75 mL/min/1.73sq m Chronic Kidney Disease: <60 mL/min/1.73sq m Kidney failure: <15 mL/min/1.73sq m eGFR calculated using average adult body mass. Additional eGFR calculator available at: http://www.[employer]/multiple_crcl_2012.htm Stage 1: Some kidney damage normal GFR Stage 2: Mild kidney damage GFR 60-89 Stage 3: Moderate kidney damage GFR 30-59 Stage 4: Severe kidney damage GFR 15-29 Stage 5: Severe kidney damage GFR <15 ESRD - chronic treatment by dialysis or transplant Sedimentation Rateon 11-25-2 020 Interpretation and review of laboratory results Abnormal [place] Sed Rate 38 mm High 0 - 20 mm [place] C-Reactive Proteinon CRP [Mass/Vol] 14.9 mg/L High 0 - 5 mg/L [place] Interpretation and review of laboratory results Abnormal [place] CBCon 08-16-2020 Erythrocyte distribution width (RBC) [Ratio] 13.9 % 11.8 - 14.4 % [place] Hematocrit (Bld) [Volume fraction] 40.8 % 36.3 - 47.1 % [place] Hemoglobin (Bld) [Mass/Vol] 12.2 g/dL 11.9 - 15.1 g/dL [place] MCH (RBC) [Entitic mass] 28.8 pg 25.2 - 33.5 pg [place] MCHC (RBC) [Mass/Vol] 29.9 g/dL 28.4 - 34.8 g/dL [place] MCV (RBC) [Entitic vol] 96.5 fL 82.6 - 102.9 fL [place] Platelet mean volume (Bld) [Entitic vol] 9.7 fL 8.1 - 13.5 fL [place] Platelets (Bld) [#/Vol] 405 10*3/uL [place] RBC (Bld) [#/Vol] 4.23 10*6/uL 3.95 - 5.1 1 m/uL [place] WBC (Bld) [#/Vol] 0.0 10*3/uL 0.0 per 10 0 WBC [place] WBC (Bld) [#/Vol] 9.7 10*3/uL [place] Comprehensive Metabolic Pane riddhi 08-16-2020 Albumin [Mass/Vol] 3.9 g/dL 3.5 - 5.2 g/dL [place] Albumin/Globulin [Mass ratio] 1.3 {ratio} [place] ALP [Catalytic activity/Vol] 143 U/L High 35 - 104 U/L [place] ALT [Catalytic activity/Vol] 13 U/L 5 - 33 U/L [place] Anion gap [Moles/Vol] 14 mmol/L 9 - 17 mmol/L [place] AST [Catalytic activity/Vol] 17 U/L <32 [place] Bilirubin Ql (U) 0.26 mg/dL Low 0.3 - 1.2 mg/dL [place] Bun/Cre Ratio 40 High [place] Calcium [Mass/Vol] 9.4 mg/dL 8.6 - 10. 4 mg/dL [place] Chloride [Moles/Vol] 102 mmol/L 98 - 10 7 mmol/L [place] CO2 [Moles/Vol] 25 mmol/L 20 - 31 mmol/L [place] Creatinine [Mass/Vol] 1.24 mg/dL High 0.5 - 0.9 mg/dL [place] GFR 50 mL/min Low >60 [place] GFR Non- 41 mL/min Low >60 [place] Glucose [Mass/Vol] 104 mg/dL High 70 - 99 mg/dL [place] Interpretation and review of laboratory results Abnormal [place] Potassium [Moles/Vol] 4.2 mmol/L 3.7 - 5.3 mmol/L [place] Protein [Mass/Vol] 7.0 g/dL 6.4 - 8.3 g/dL [place] Sodium [Moles/Vol] 141 mmol/L 135 - 144 mmol/L [place] Urea nitrogen [Mass/Vol] 49 mg/dL High 8 - 23 mg/dL [place] Metabolic Panelon 08-16-2020 GFR/1.73 sq M predicted among non-blacks MDRD (S/P/Bld) [Vol rate/Area] [place] Comment on above: Average GFR for 70 o r more years old: 75 mL/min/1.73sq m Chronic Kidney Disease: <60 mL/min/1.73sq m Kidney failure: <15 mL/min/1.73sq m eGFR calculated using average adult body mass. Additional eGFR calculator available at: http://www.[employer]/multiple_crcl_2012.htm Stage 1: Some kidney damage normal GFR Stage 2: Mild kidney damage GFR 60-89 Stage 3: Moderate kidney damage GFR 30-59 Stage 4: Severe kidney damage GFR 15-29 Stage 5: Severe kidney damage GFR <15 ESRD - chronic treatment by dialysis or transplant Sedimentation Rateon 08-16-2 020 Interpretation and review of laboratory results Abnormal [place] Sed Rate 42 mm High 0 - 20 mm [place] CBCon 08-09-2020 Erythrocyte distribution width (RBC) [Ratio] 13.7 % 11.8 - 14.4 % [place] Hematocrit (Bld) [Volume fraction] 37.1 % 36.3 - 47.1 % [place] Hemoglobin (Bld) [Mass/Vol] 11.4 g/dL Low 11.9 - 15.1 g/dL [place] Interpretation and review of laboratory results Abnormal [place] MCH (RBC) [Entitic mass] 29.5 pg 25.2 - 33.5 pg [place] MCHC (RBC) [Mass/Vol] 30.7 g/dL 28.4 - 34.8 g/dL [place] MCV (RBC) [Entitic vol] 96.1 fL 82.6 - 102.9 fL [place] Platelet mean volume (Bld) [Entitic vol] 10.0 fL 8.1 - 13.5 fL [place] Platelets (Bld) [#/Vol] 334 10*3/uL [place] RBC (Bld) [#/Vol] 3.86 10*6/uL Low 3.95 - 5.1 1 m/uL [place] WBC (Bld) [#/Vol] 10.0 10*3/uL [place] WBC (Bld) [#/Vol] 0.0 10*3/uL 0.0 per 10 0 WBC [place] Creatinine, Random Urineon 1 10-09-2019 Creatinine, Ur 25.9 mg/dL Low 28 - 217 mg/dL [place] Interpretation and review of laboratory results Abnormal [place] Ferritinon 08-09-2020 Ferritin [Mass/Vol] 179 ug/L High 13 - 150 ug/L [place] Iron and TIBCon 08-09-2020 Iron [Mass/Vol] 38 ug/dL 37 - 145 ug/dL [place] Iron Saturation 13 % Low 20 - 55 % [place] TIBC 291 ug/dL 250 - 450 ug/dL [place] UIBC 253 ug/dL 112 - 347 ug/dL [place] Magnesiumon 08-09-2020 Magnesium [Mass/Vol] 2.1 mg/dL 1.6 - 2 .6 mg/dL [place] Metabolic Panelon 08-09-2020 GFR/1.73 sq M predicted among non-blacks MDRD (S/P/Bld) [Vol rate/Area] [place], [place] Comment on above: Average GFR for 70 o r more years old: 75 mL/min/1.73sq m Chronic Kidney Disease: <60 mL/min/1.73sq m Kidney failure: <15 mL/min/1.73sq m eGFR calculated using average adult body mass. Additional eGFR calculator available at: http://www.[employer]/multiple_crcl_2012.htm Stage 1: Some kidney damage normal GFR Stage 2: Mild kidney damage GFR 60-89 Stage 3: Moderate kidney damage GFR 30-59 Stage 4: Severe kidney damage GFR 15-29 Stage 5: Severe kidney damage GFR <15 ESRD - chronic treatment by dialysis or transplant Microscopic Urinalysison Amorphous, UA NOT REPORTED None [place] Bacteria, UA 1+ Abnormal None [place] Casts UA NOT REPORTED /LPF [place] Crystals, UA NOT REPORTED None /HPF [place] Epithelial Cells UA 5 TO 10 [place] Interpretation and review of laboratory results Abnormal [place] Mucus, UA NOT REPORTED None [place] Other Observations UA NOT REPORTED NOT REQ. [place] RBC (U) [#/Vol] 2 TO 5 [place] Renal Epithelial, UA NOT REPORTED 0 /HPF [place] Trichomonas, UA NOT REPORTED None [place] WBC, UA 10 TO 20 [place] Yeast, UA NOT REPORTED None [place] Otheron 08-09-2020 Interpretation and review of laboratory results Abnormal [place] PTH, Intacton 08-09-2020 Pth Intact 40.39 pg/mL 15 - 65 pg/mL [place] Comment on above: SAMPLES FROM PATIENT S ROUTINELY RECEIVING HIGH DOSE BIOTIN THERAPY MAY SHOW FALSELY DEPRESSED RESULTS. ADDITIONAL INFORMATION MAY BE REQUIRED FOR DIAGNOSIS. Protein, urine, randomon Protein (U) [Mass/Vol] 10 mg/dL [place] Comment on above: No normal range esta blished. Renal Function Panelon 08-09 Albumin [Mass/Vol] 3.7 g/dL 3.5 - 5.2 g/dL [place] Anion gap [Moles/Vol] 14 mmol/L 9 - 17 mmol/L [place] Bun/Cre Ratio 38 High [place] Calcium [Mass/Vol] 9.2 mg/dL 8.6 - 10. 4 mg/dL [place] Chloride [Moles/Vol] 102 mmol/L 98 - 10 7 mmol/L [place] CO2 [Moles/Vol] 24 mmol/L 20 - 31 mmol/L [place] Creatinine [Mass/Vol] 1.07 mg/dL High 0.5 - 0.9 mg/dL [place] GFR 60 mL/min Low >60 [place] GFR Non- 49 mL/min Low >60 [place] Glucose [Mass/Vol] 111 mg/dL High 70 - 99 mg/dL [place] Interpretation and review of laboratory results Abnormal [place] Phosphate [Mass/Vol] 3.2 mg/dL 2.6 - 4 .5 mg/dL [place] Potassium [Moles/Vol] 3.9 mmol/L 3.7 - 5.3 mmol/L [place] Sodium [Moles/Vol] 140 mmol/L 135 - 144 mmol/L [place] Urea nitrogen [Mass/Vol] 41 mg/dL High 8 - 23 mg/dL [place] Uric Acidon 08-09-2020 Urate [Mass/Vol] 4.5 mg/dL 2.4 - 5.7 mg/dL [place] Urinalysis Reflex to Culture on 08-09-2020 Bilirubin Urine Negative NEGATIVE [place] Color, UA YELLOW YELLOW [place] Glucose, Ur Negative NEGATIVE [place] Interpretation and review of laboratory results Abnormal [place] Ketones Ql (U) Negative NEGATIVE [place] Leukocyte esterase Test strip Ql (U) LARGE Abnormal NEGATIVE [place] Nitrite, Urine Negative NEGATIVE [place] pH, UA 7.0 [place] Protein (U) [Mass/Vol] Negative NEGATIVE [place] Specific [place], UA 1.015 [place] Turbidity UA CLEAR CLEAR [place] Urinalysis Comments NOT REPORTED [place] Urine Hgb TRACE Abnormal NEGATIVE [place] Urobilinogen, Urine Normal Normal [place] CBCon 07-18-2020 Erythrocyte distribution width (RBC) [Ratio] 14.7 % High 11.8 - 14.4 % [place] Hematocrit (Bld) [Volume fraction] 34.6 % Low 36.3 - 47.1 % [place] Hemoglobin (Bld) [Mass/Vol] 10.3 g/dL Low 11.9 - 15.1 g/dL [place] Interpretation and review of laboratory results Abnormal [place] MCH (RBC) [Entitic mass] 30.1 pg 25.2 - 33.5 pg [place] MCHC (RBC) [Mass/Vol] 29.8 g/dL 28.4 - 34.8 g/dL [place] MCV (RBC) [Entitic vol] 101.2 fL 82.6 - 102.9 fL [place] Platelet mean volume (Bld) [Entitic vol] 9.9 fL 8.1 - 13.5 fL [place] Platelets (Bld) [#/Vol] 328 10*3/uL [place] RBC (Bld) [#/Vol] 3.42 10*6/uL Low 3.95 - 5.1 1 m/uL [place] WBC (Bld) [#/Vol] 0.0 10*3/uL 0.0 per 10 0 WBC [place] WBC (Bld) [#/Vol] 7.5 10*3/uL [place] Creatinine, Random Urineon 1 Creatinine, Ur 97.1 mg/dL 28 - 217 mg/dL [place] Magnesiumon 07-18-2020 Magnesium [Mass/Vol] 2.2 mg/dL 1.6 - 2 .6 mg/dL [place] Metabolic Panelon 07-18-2020 GFR/1.73 sq M predicted among non-blacks MDRD (S/P/Bld) [Vol rate/Area] [place], [place] Comment on above: Average GFR for 70 o r more years old: 75 mL/min/1.73sq m Chronic Kidney Disease: <60 mL/min/1.73sq m Kidney failure: <15 mL/min/1.73sq m eGFR calculated using average adult body mass. Additional eGFR calculator available at: http://www.[employer]/multiple_crcl_2012.htm Stage 1: Some kidney damage normal GFR Stage 2: Mild kidney damage GFR 60-89 Stage 3: Moderate kidney damage GFR 30-59 Stage 4: Severe kidney damage GFR 15-29 Stage 5: Severe kidney damage GFR <15 ESRD - chronic treatment by dialysis or transplant Microscopic Urinalysison Amorphous, UA NOT REPORTED None [place] Bacteria, UA NOT REPORTED None [place] Casts UA NOT REPORTED /LPF [place] Crystals, UA CALCIUM OXALATE Abnormal None /HPF [place] Crystals, UA 0 TO 2 Abnormal None /HPF [place] Epithelial Cells UA 2 TO 5 [place] Interpretation and review of laboratory results Abnormal [place] Mucus, UA NOT REPORTED None [place] Other Observations UA NOT REPORTED NOT REQ. [place] RBC (U) [#/Vol] 0 TO 2 [place] Renal Epithelial, UA NOT REPORTED 0 /HPF [place] Trichomonas, UA NOT REPORTED None [place] WBC, UA None [place] Yeast, UA NOT REPORTED None [place] PTH, Intacton 07-18-2020 Pth Intact 58.77 pg/mL 15 - 65 pg/mL [place] Comment on above: SAMPLES FROM PATIENT S ROUTINELY RECEIVING HIGH DOSE BIOTIN THERAPY MAY SHOW FALSELY DEPRESSED RESULTS. ADDITIONAL INFORMATION MAY BE REQUIRED FOR DIAGNOSIS. Protein, urine, randomon Protein (U) [Mass/Vol] 19 mg/dL [place] Comment on above: No normal range esta blished. Renal Function Panelon 07-18 Albumin [Mass/Vol] 3.3 g/dL Low 3.5 - 5.2 g/dL [place] Anion gap [Moles/Vol] 16 mmol/L 9 - 17 mmol/L [place] Bun/Cre Ratio 27 High [place] Calcium [Mass/Vol] 8.6 mg/dL 8.6 - 10. 4 mg/dL [place] Chloride [Moles/Vol] 102 mmol/L 98 - 10 7 mmol/L [place] CO2 [Moles/Vol] 25 mmol/L 20 - 31 mmol/L [place] Creatinine [Mass/Vol] 1.17 mg/dL High 0.5 - 0.9 mg/dL [place] GFR 54 mL/min Low >60 [place] GFR Non- 44 mL/min Low >60 [place] Glucose [Mass/Vol] 97 mg/dL 70 - 99 mg/dL [place] Interpretation and review of laboratory results Abnormal [place] Phosphate [Mass/Vol] 4.3 mg/dL 2.6 - 4 .5 mg/dL [place] Potassium [Moles/Vol] 3.9 mmol/L 3.7 - 5.3 mmol/L [place] Sodium [Moles/Vol] 143 mmol/L 135 - 144 mmol/L [place] Urea nitrogen [Mass/Vol] 32 mg/dL High 8 - 23 mg/dL [place] Uric Acidon 07-18-2020 Urate [Mass/Vol] 5.1 mg/dL 2.4 - 5.7 mg/dL [place] Urinalysis Reflex to Culture on 07-18-2020 Bilirubin Urine Negative NEGATIVE [place] Color, UA YELLOW YELLOW [place] Glucose, Ur Negative NEGATIVE [place] Interpretation and review of laboratory results Abnormal [place] Ketones Ql (U) Negative NEGATIVE [place] Leukocyte esterase Test strip Ql (U) Negative NEGATIVE [place] Nitrite, Urine Negative NEGATIVE [place] pH, UA 5.5 [place] Protein (U) [Mass/Vol] Negative NEGATIVE [place] Specific [place], UA 1.025 High [place] Turbidity UA CLEAR CLEAR [place] Urinalysis Comments NOT REPORTED [place] Urine Hgb Negative NEGATIVE [place] Urobilinogen, Urine Normal Normal [place] Basic Metabolic Panelon 06-27 Anion gap [Moles/Vol] 12 mmol/L 9 - 17 mmol/L [place] Bun/Cre Ratio 35 High [place] Calcium [Mass/Vol] 8.7 mg/dL 8.6 - 10. 4 mg/dL [place] Chloride [Moles/Vol] 105 mmol/L 98 - 10 7 mmol/L [place] CO2 [Moles/Vol] 24 mmol/L 20 - 31 mmol/L [place] Creatinine [Mass/Vol] 1.02 mg/dL High 0.5 - 0.9 mg/dL [place] GFR >60 >60 mL/min [place] GFR Non- 52 mL/min Low >60 [place] Glucose [Mass/Vol] 98 mg/dL 70 - 99 mg/dL [place] Interpretation and review of laboratory results Abnormal [place] Potassium [Moles/Vol] 4.0 mmol/L 3.7 - 5.3 mmol/L [place] Sodium [Moles/Vol] 141 mmol/L 135 - 144 mmol/L [place] Urea nitrogen [Mass/Vol] 36 mg/dL High 8 - 23 mg/dL [place] Metabolic Panelon 07-09-2020 GFR/1.73 sq M predicted among non-blacks MDRD (S/P/Bld) [Vol rate/Area] [place] Comment on above: Stage 1: Some [...] body mass. Additional eGFR calculator available at: http://www.[employer]/multiple_crcl_2012.htm Basic Metabolic Panelon Anion gap [Moles/Vol] 11 mmol/L 9 - 17 mmol/L [place] Bun/Cre Ratio 36 High [place] Calcium [Mass/Vol] 9.0 mg/dL 8.6 - 10. 4 mg/dL [place] Chloride [Moles/Vol] 104 mmol/L 98 - 10 7 mmol/L [place] CO2 [Moles/Vol] 23 mmol/L 20 - 31 mmol/L [place] Creatinine [Mass/Vol] 1.59 mg/dL High 0.5 - 0.9 mg/dL [place] GFR 38 mL/min Low >60 [place] GFR Non- 31 mL/min Low >60 [place] Glucose [Mass/Vol] 82 mg/dL 70 - 99 mg/dL [place] Interpretation and review of laboratory results Abnormal [place] Potassium [Moles/Vol] 4.1 mmol/L 3.7 - 5.3 mmol/L [place] Sodium [Moles/Vol] 138 mmol/L 135 - 144 mmol/L [place] Urea nitrogen [Mass/Vol] 58 mg/dL High 8 - 23 mg/dL [place] Metabolic Panelon 07-01-2020 GFR/1.73 sq M predicted among non-blacks MDRD (S/P/Bld) [Vol rate/Area] [place] Comment on above: Stage 1: Some [...] body mass. Additional eGFR calculator available at: http://www.[employer]/multiple_crcl_2012.htm Basic Metabolic Panelon - Anion gap [Moles/Vol] 12 mmol/L 9 - 17 mmol/L [place] Bun/Cre Ratio 36 High [place] Calcium [Mass/Vol] 8.9 mg/dL 8.6 - 10. 4 mg/dL [place] Chloride [Moles/Vol] 101 mmol/L 98 - 10 7 mmol/L [place] CO2 [Moles/Vol] 23 mmol/L 20 - 31 mmol/L [place] Creatinine [Mass/Vol] 1.34 mg/dL High 0.5 - 0.9 mg/dL [place] GFR 46 mL/min Low >60 [place] GFR Non- 38 mL/min Low >60 [place] Glucose [Mass/Vol] 112 mg/dL High 70 - 99 mg/dL [place] Interpretation and review of laboratory results Abnormal [place] Potassium [Moles/Vol] 4.5 mmol/L 3.7 - 5.3 mmol/L [place] Sodium [Moles/Vol] 136 mmol/L 135 - 144 mmol/L [place] Urea nitrogen [Mass/Vol] 48 mg/dL High 8 - 23 mg/dL [place] Infectious Disease Office/Cl inic Noteon 06-25-2020 [...] oral capsule, 0.25 mcg, 1 caps, Oral, Mo//, Not taking desoximetasone 0.25% topical cream, 1 [...] KUMAR, Manuel Brody 06/25/20 09:[address] [facility] Metabolic Panelon 06-25-2020 GFR/1.73 sq M predicted among non-blacks MDRD (S/P/Bld) [Vol rate/Area] [facility] [place] Comment on above: Stage 1: Some [...] body mass. Additional eGFR calculator available at: http://www.[employer]/multiple_crcl_2012.htm Provider Letteron 06-25-2020 Provider Letter Justino Dhaliwal DO [address] [place] [id number] Re: Jesús Nolan Date of Visit: 06/25/[address] Dhaliwal, Thank you for your referral to my office. Attached you will find the most recent office visit note. Please call if you have any questions or concerns. Sincerely, Manuel Ibarra MD [address] [place] [address], [address] [place] [address] The following document(s) were included in the letter: June 25, 2020 09:49:14 EDT - (06/25/2020) Telehealth Office Visit Note Normal [facility] Lipid Panelon 06-19-2020 Cholesterol [Mass/Vol] 151 mg/dL <200 [place], [place] Comment on above: Cholesterol Guidelines: <200 Desirable 200-240 Borderline >240 Undesirable Cholesterol in HDL [Mass/Vol] 58 mg/dL >40 [place] Comment on above: HDL Guidelines: <40 Undesirable 40-59 Borderline >59 Desirable Cholesterol in LDL [Mass/Vol] 72 mg/dL 0 - 130 mg/dL [place] Comment on above: LDL Guidelines: <100 Desirable 100-129 Near to/above Desirable 130-159 Borderline >159 Undesirable Direct (measured) LDL and calculated LDL are not interchangeable tests. Cholesterol in VLDL [Mass/Vol] NOT REPORTED 1 - 30 mg/dL [place] Cholesterol.total/Vani sterol in HDL [Mass ratio] 2.6 {ratio} <5 [place] Triglyceride [Mass/Vol] 107 mg/dL <150 [place] Comment on above: Triglyceride Guidelines: <150 Desirable 150-199 Borderline 200-499 High >499 Very high Based on AHA Guidelines for fasting triglyceride, June 2012. C-Reactive Proteinon 020 CRP [Mass/Vol] 3.9 mg/L 0 - 5 mg/L [place] CBCon 06-12-2020 Erythrocyte distribution width (RBC) [Ratio] 17.4 % High 11.8 - 14.4 % [place] Hematocrit (Bld) [Volume fraction] 31.3 % Low 36.3 - 47.1 % [place] Hemoglobin (Bld) [Mass/Vol] 9.3 g/dL Low 11.9 - 15.1 g/dL [place] Interpretation and review of laboratory results Abnormal [place] MCH (RBC) [Entitic mass] 30.1 pg 25.2 - 33.5 pg [place] MCHC (RBC) [Mass/Vol] 29.7 g/dL 28.4 - 34.8 g/dL [place] MCV (RBC) [Entitic vol] 101.3 fL 82.6 - 102.9 fL [place] Platelet mean volume (Bld) [Entitic vol] 9.5 fL 8.1 - 13.5 fL [place] Platelets (Bld) [#/Vol] 382 10*3/uL [place] RBC (Bld) [#/Vol] 3.09 10*6/uL Low 3.95 - 5.1 1 m/uL [place] WBC (Bld) [#/Vol] 0.0 10*3/uL 0.0 per 10 0 WBC [place] WBC (Bld) [#/Vol] 7.3 10*3/uL [place] Comprehensive Metabolic Pane riddhi 06-12-2020 Albumin [Mass/Vol] 2.9 g/dL Low 3.5 - 5.2 g/dL [place] Albumin/Globulin [Mass ratio] 1.1 {ratio} [place] ALP [Catalytic activity/Vol] 155 U/L High 35 - 104 U/L [place] ALT [Catalytic activity/Vol] 25 U/L 5 - 33 U/L [place] Anion gap [Moles/Vol] 10 mmol/L 9 - 17 mmol/L [place] AST [Catalytic activity/Vol] 22 U/L <32 [place] Bilirubin Ql (U) 0.24 mg/dL Low 0.3 - 1.2 mg/dL [place] Bun/Cre Ratio 23 High [place] Calcium [Mass/Vol] 8.6 mg/dL 8.6 - 10. 4 mg/dL [place] Chloride [Moles/Vol] 102 mmol/L 98 - 10 7 mmol/L [place] CO2 [Moles/Vol] 26 mmol/L 20 - 31 mmol/L [place] Creatinine [Mass/Vol] 1.03 mg/dL High 0.5 - 0.9 mg/dL [place] GFR >60 >60 mL/min [place] GFR Non- 51 mL/min Low >60 [place] Glucose [Mass/Vol] 110 mg/dL High 70 - 99 mg/dL [place] Interpretation and review of laboratory results Abnormal [place] Potassium [Moles/Vol] 4.1 mmol/L 3.7 - 5.3 mmol/L [place] Protein [Mass/Vol] 5.5 g/dL Low 6.4 - 8.3 g/dL [place] Sodium [Moles/Vol] 138 mmol/L 135 - 144 mmol/L [place] Urea nitrogen [Mass/Vol] 24 mg/dL High 8 - 23 mg/dL [place] Infectious Disease Office/Cl inic Noteon 06-12-2020 [...] system negative. Physical Exam Vitals at the halfway of been okay. She appears to be [...] Continue to follow-up with Dr. Yousif in [place] wound clinic. Problem List/Past Medical History Ongoing [...] oral capsule, 0.25 mcg, 1 caps, Oral, Mo//, Not taking desoximetasone 0.25% topical cream, 1 [...] Use:. Family History Cancer: Sibling. Lab Results [facility] studies of June 06 showed a white [...] KUMAR, Manuel Brody 06/12/20 14:[address] [facility] Metabolic Panelon 06-12-2020 GFR/1.73 sq M predicted among non-blacks MDRD (S/P/Bld) [Vol rate/Area] [place] Comment on above: Average GFR for 70 o r more years old: 75 mL/min/1.73sq m Chronic Kidney Disease: <60 mL/min/1.73sq m Kidney failure: <15 mL/min/1.73sq m eGFR calculated using average adult body mass. Additional eGFR calculator available at: http://www.[employer]/multiple_crcl_2012.htm Stage 1: Some kidney damage normal GFR Stage 2: Mild kidney damage GFR 60-89 Stage 3: Moderate kidney damage GFR 30-59 Stage 4: Severe kidney damage GFR 15-29 Stage 5: Severe kidney damage GFR <15 ESRD - chronic treatment by dialysis or transplant Sedimentation Rateon 020 Interpretation and review of laboratory results Abnormal [place] Sed Rate 54 mm High 0 - 20 mm [place] C-Reactive Proteinon 020 CRP [Mass/Vol] 6.5 mg/L High 0 - 5 mg/L [place] Interpretation and review of laboratory results Abnormal [place] CBCon 06-06-2020 Erythrocyte distribution width (RBC) [Ratio] 17.4 % High 11.8 - 14.4 % [place] Hematocrit (Bld) [Volume fraction] 30.6 % Low 36.3 - 47.1 % [place] Hemoglobin (Bld) [Mass/Vol] 9.0 g/dL Low 11.9 - 15.1 g/dL [place] Interpretation and review of laboratory results Abnormal [place] MCH (RBC) [Entitic mass] 30.2 pg 25.2 - 33.5 pg [place] MCHC (RBC) [Mass/Vol] 29.4 g/dL 28.4 - 34.8 g/dL [place] MCV (RBC) [Entitic vol] 102.7 fL 82.6 - 102.9 fL [place] Platelet mean volume (Bld) [Entitic vol] 9.4 fL 8.1 - 13.5 fL [place] Platelets (Bld) [#/Vol] 356 10*3/uL [place] RBC (Bld) [#/Vol] 2.98 10*6/uL Low 3.95 - 5.1 1 m/uL [place] WBC (Bld) [#/Vol] 8.0 10*3/uL [place] WBC (Bld) [#/Vol] 0.0 10*3/uL 0.0 per 10 0 WBC [place] Comprehensive Metabolic Pane riddhi 06-06-2020 Albumin [Mass/Vol] 2.9 g/dL Low 3.5 - 5.2 g/dL [place] Albumin/Globulin [Mass ratio] 1.2 {ratio} [place] ALP [Catalytic activity/Vol] 170 U/L High 35 - 104 U/L [place] ALT [Catalytic activity/Vol] 13 U/L 5 - 33 U/L [place] Anion gap [Moles/Vol] 11 mmol/L 9 - 17 mmol/L [place] AST [Catalytic activity/Vol] 18 U/L <32 [place] Bilirubin Ql (U) 0.28 mg/dL Low 0.3 - 1.2 mg/dL [place] Bun/Cre Ratio 23 High [place] Calcium [Mass/Vol] 8.5 mg/dL Low 8.6 - 10. 4 mg/dL [place] Chloride [Moles/Vol] 106 mmol/L 98 - 10 7 mmol/L [place] CO2 [Moles/Vol] 23 mmol/L 20 - 31 mmol/L [place] Creatinine [Mass/Vol] 1.01 mg/dL High 0.5 - 0.9 mg/dL [place] GFR >60 >60 mL/min [place] GFR Non- 52 mL/min Low >60 [place] Glucose [Mass/Vol] 109 mg/dL High 70 - 99 mg/dL [place] Interpretation and review of laboratory results Abnormal [place] Potassium [Moles/Vol] 3.9 mmol/L 3.7 - 5.3 mmol/L [place] Protein [Mass/Vol] 5.4 g/dL Low 6.4 - 8.3 g/dL [place] Sodium [Moles/Vol] 140 mmol/L 135 - 144 mmol/L [place] Urea nitrogen [Mass/Vol] 23 mg/dL 8 - 23 mg/dL [place] Metabolic Panelon 06-06-2020 GFR/1.73 sq M predicted among non-blacks MDRD (S/P/Bld) [Vol rate/Area] [place] Comment on above: Average GFR for 70 o r more years old: 75 mL/min/1.73sq m Chronic Kidney Disease: <60 mL/min/1.73sq m Kidney failure: <15 mL/min/1.73sq m eGFR calculated using average adult body mass. Additional eGFR calculator available at: http://www.[employer]/multiple_crcl_2012.htm Stage 1: Some kidney damage normal GFR Stage 2: Mild kidney damage GFR 60-89 Stage 3: Moderate kidney damage GFR 30-59 Stage 4: Severe kidney damage GFR 15-29 Stage 5: Severe kidney damage GFR <15 ESRD - chronic treatment by dialysis or transplant Sedimentation Rateon 020 Interpretation and review of laboratory results Abnormal [place] Sed Rate 58 mm High 0 - 20 mm [place] C-Reactive Proteinon 05-30- 020 CRP [Mass/Vol] 7.6 mg/L High 0 - 5 mg/L [place] Interpretation and review of laboratory results Abnormal [place] CBC Auto Differentialon Basophils (Bld) [#/Vol] 0.00 10*3/uL [place] Basophils/100 WBC (Bld) 0 % 0 - 2 % [place] Differential Type NOT REPORTED [place] Eosinophils (Bld) [#/Vol] 0.43 10*3/uL [place] Eosinophils/100 WBC (Bld) 8 % High 1 - 4 % [place] Erythrocyte distribution width (RBC) [Ratio] 17.0 % High 11.8 - 14.4 % [place] Hematocrit (Bld) [Volume fraction] 32.6 % Low 36.3 - 47.1 % [place] Hemoglobin (Bld) [Mass/Vol] 9.4 g/dL Low 11.9 - 15.1 g/dL [place] Immature granulocytes (Bld) [#/Vol] 1 % High 0 [place] Immature granulocytes (Bld) [#/Vol] 0.05 10*3/uL [place] Interpretation and review of laboratory results Abnormal [place] Lymphocytes (Bld) [#/Vol] 2.11 10*3/uL [place] Lymphocytes/100 WBC (Bld) 39 % 24 - 43 % [place] MCH (RBC) [Entitic mass] 29.5 pg 25.2 - 33.5 pg [place] MCHC (RBC) [Mass/Vol] 28.8 g/dL 28.4 - 34.8 g/dL [place] MCV (RBC) [Entitic vol] 102.2 fL 82.6 - 102.9 fL [place] Monocytes (Bld) [#/Vol] 0.59 10*3/uL [place] Monocytes/100 WBC (Bld) 11 % 3 - 12 % [place] Morphology [place] (Bld) [Interp] HYPOCHROMASIA PRESENT [place] Platelet mean volume (Bld) [Entitic vol] 9.3 fL 8.1 - 13.5 fL [place] Platelets (Bld) [#/Vol] 398 10*3/uL [place] Platelets (Bld) [#/Vol] NOT REPORTED [place] RBC (Bld) [#/Vol] 3.19 10*6/uL Low 3.95 - 5.1 1 m/uL [place] RBC morphology finding Nom (Bld) NOT REPORTED [place] Segmented neutrophils/100 WBC (Bld) 41 % 36 - 65 % [place] Segs Absolute 2.22 [place] WBC (Bld) [#/Vol] 5.4 10*3/uL [place] WBC (Bld) [#/Vol] 0.0 10*3/uL 0.0 per 10 0 WBC [place] WBC Morphology NOT REPORTED [place] Comprehensive Metabolic Pane riddhi 05-30-2020 Albumin [Mass/Vol] 2.8 g/dL Low 3.5 - 5.2 g/dL [place] Albumin/Globulin [Mass ratio] 1.0 {ratio} [place] ALP [Catalytic activity/Vol] 147 U/L High 35 - 104 U/L [place] ALT [Catalytic activity/Vol] 7 U/L 5 - 33 U/L [place] Anion gap [Moles/Vol] 10 mmol/L 9 - 17 mmol/L [place] AST [Catalytic activity/Vol] 13 U/L <32 [place] Bilirubin Ql (U) 0.23 mg/dL Low 0.3 - 1.2 mg/dL [place] Bun/Cre Ratio 16 [place] Calcium [Mass/Vol] 8.5 mg/dL Low 8.6 - 10. 4 mg/dL [place] Chloride [Moles/Vol] 104 mmol/L 98 - 10 7 mmol/L [place] CO2 [Moles/Vol] 23 mmol/L 20 - 31 mmol/L [place] Creatinine [Mass/Vol] 1.3 mg/dL High 0.5 - 0.9 mg/dL [place] GFR 48 mL/min Low >60 [place] GFR Non- 39 mL/min Low >60 [place] Glucose [Mass/Vol] 101 mg/dL High 70 - 99 mg/dL [place] Interpretation and review of laboratory results Abnormal [place] Potassium [Moles/Vol] 4.1 mmol/L 3.7 - 5.3 mmol/L [place] Protein [Mass/Vol] 5.6 g/dL Low 6.4 - 8.3 g/dL [place] Sodium [Moles/Vol] 137 mmol/L 135 - 144 mmol/L [place] Urea nitrogen [Mass/Vol] 21 mg/dL 8 - 23 mg/dL [place] Metabolic Panelon 05-30-2020 GFR/1.73 sq M predicted among non-blacks MDRD (S/P/Bld) [Vol rate/Area] [place] Comment on above: Stage 1: Some [...] body mass. Additional eGFR calculator available at: http://www.[employer]/multiple_crcl_2012.htm Sedimentation Rateon 020 Interpretation and review of laboratory results Abnormal [place] Sed Rate 44 mm High 0 - 20 mm [place] Infectious Disease Office/Cl inic Noteon 05-29-2020 [...] lower leg Consult with wound clinic in [place]. 3. Chronic kidney disease Continue to monitor [...] data available (MRI) Electronically signed by Manuel Ibarra MD 05/29/20 14:[address] [facility] C-Reactive Proteinon 020 CRP [Mass/Vol] 52.4 mg/L High 0 - 5 mg/L [place] Interpretation and review of laboratory results Abnormal [place] CBC Auto Differentialon 04-28 Basophils (Bld) [#/Vol] 0.03 10*3/uL [place] Basophils/100 WBC (Bld) 0 % 0 - 2 % [place] Differential Type NOT REPORTED [place] Eosinophils (Bld) [#/Vol] 0.27 10*3/uL [place] Eosinophils/100 WBC (Bld) 3 % 1 - 4 % [place] Erythrocyte distribution width (RBC) [Ratio] 16.5 % High 11.8 - 14.4 % [place] Hematocrit (Bld) [Volume fraction] 27.8 % Low 36.3 - 47.1 % [place] Hemoglobin (Bld) [Mass/Vol] 8.5 g/dL Low 11.9 - 15.1 g/dL [place] Immature granulocytes (Bld) [#/Vol] 0.09 10*3/uL [place] Immature granulocytes (Bld) [#/Vol] 1 % High 0 [place] Interpretation and review of laboratory results Abnormal [place] Lymphocytes (Bld) [#/Vol] 1.64 10*3/uL [place] Lymphocytes/100 WBC (Bld) 16 % Low 24 - 43 % [place] MCH (RBC) [Entitic mass] 30.1 pg 25.2 - 33.5 pg [place] MCHC (RBC) [Mass/Vol] 30.6 g/dL 28.4 - 34.8 g/dL [place] MCV (RBC) [Entitic vol] 98.6 fL 82.6 - 102.9 fL [place] Monocytes (Bld) [#/Vol] 1.02 10*3/uL [place] Monocytes/100 WBC (Bld) 10 % 3 - 12 % [place] Platelet mean volume (Bld) [Entitic vol] 9.2 fL 8.1 - 13.5 fL [place] Platelets (Bld) [#/Vol] NOT REPORTED [place] Platelets (Bld) [#/Vol] 516 10*3/uL [place] RBC (Bld) [#/Vol] 2.82 10*6/uL Low 3.95 - 5.1 1 m/uL [place] RBC morphology finding Nom (Bld) NOT REPORTED [place] Segmented neutrophils/100 WBC (Bld) 70 % High 36 - 65 % [place] Segs Absolute 7.00 [place] WBC (Bld) [#/Vol] 0.0 10*3/uL 0.0 per 10 0 WBC [place] WBC (Bld) [#/Vol] 10.1 10*3/uL [place] WBC Morphology NOT REPORTED [place] Comprehensive Metabolic Pane riddhi 05-23-2020 Albumin [Mass/Vol] 3 g/dL Low 3.5 - 5.2 g/dL [place] Albumin/Globulin [Mass ratio] 1.1 {ratio} [place] ALP [Catalytic activity/Vol] 152 U/L High 35 - 104 U/L [place] ALT [Catalytic activity/Vol] 11 U/L 5 - 33 U/L [place] Anion gap [Moles/Vol] 12 mmol/L 9 - 17 mmol/L [place] AST [Catalytic activity/Vol] 27 U/L <32 [place] Bilirubin Ql (U) 0.37 mg/dL 0.3 - 1.2 mg/dL [place] Bun/Cre Ratio 10 [place] Calcium [Mass/Vol] 8.4 mg/dL Low 8.6 - 10. 4 mg/dL [place] Chloride [Moles/Vol] 103 mmol/L 98 - 10 7 mmol/L [place] CO2 [Moles/Vol] 23 mmol/L 20 - 31 mmol/L [place] Creatinine [Mass/Vol] 1.53 mg/dL High 0.5 - 0.9 mg/dL [place] GFR 39 mL/min Low >60 [place] GFR Non- 32 mL/min Low >60 [place] Glucose [Mass/Vol] 87 mg/dL 70 - 99 mg/dL [place] Interpretation and review of laboratory results Abnormal [place] Potassium [Moles/Vol] 3.7 mmol/L 3.7 - 5.3 mmol/L [place] Protein [Mass/Vol] 5.7 g/dL Low 6.4 - 8.3 g/dL [place] Sodium [Moles/Vol] 138 mmol/L 135 - 144 mmol/L [place] Urea nitrogen [Mass/Vol] 16 mg/dL 8 - 23 mg/dL [place] Metabolic Panelon 05-23-2020 GFR/1.73 sq M predicted among non-blacks MDRD (S/P/Bld) [Vol rate/Area] [place] Comment on above: Average GFR for 70 o r more years old: 75 mL/min/1.73sq m Chronic Kidney Disease: <60 mL/min/1.73sq m Kidney failure: <15 mL/min/1.73sq m eGFR calculated using average adult body mass. Additional eGFR calculator available at: http://www.[employer]/multiple_crcl_2012.htm Stage 1: Some kidney damage normal GFR Stage 2: Mild kidney damage GFR 60-89 Stage 3: Moderate kidney damage GFR 30-59 Stage 4: Severe kidney damage GFR 15-29 Stage 5: Severe kidney damage GFR <15 ESRD - chronic treatment by dialysis or transplant Sedimentation Rateon 2 020 Interpretation and review of laboratory results Abnormal [place] Sed Rate 70 mm High 0 - 20 mm [place] Infectious Disease Office/Cl inic Noteon 05-22-2020 [...] on February 08. She was discharged to halfway on February 14. She made progress and was discharged home the . However within 3 days on the she was readmitted to halfway. X-rays were done in follow-up and there [...] data available (MRI) Electronically signed by Manuel Ibarra MD 05/22/20 17:[address] [facility] CBC Auto Differentialon 04-28 Basophils (Bld) [#/Vol] 10*3/uL [place] Basophils/100 WBC (Bld) 0 % 0 - 2 % [place] Differential Type NOT REPORTED [place] Eosinophils (Bld) [#/Vol] 0.26 10*3/uL [place] Eosinophils/100 WBC (Bld) 3 % 1 - 4 % [place] Erythrocyte distribution width (RBC) [Ratio] 15.0 % High 11.8 - 14.4 % [place] Hematocrit (Bld) [Volume fraction] 27.8 % Low 36.3 - 47.1 % [place] Hemoglobin (Bld) [Mass/Vol] 8.4 g/dL Low 11.9 - 15.1 g/dL [place] Immature granulocytes (Bld) [#/Vol] 0.11 10*3/uL [place] Immature granulocytes (Bld) [#/Vol] 1 % High 0 [place] Interpretation and review of laboratory results Abnormal [place] Lymphocytes (Bld) [#/Vol] 1.84 10*3/uL [place] Lymphocytes/100 WBC (Bld) 19 % Low 24 - 43 % [place] MCH (RBC) [Entitic mass] 29.6 pg 25.2 - 33.5 pg [place] MCHC (RBC) [Mass/Vol] 30.2 g/dL 28.4 - 34.8 g/dL [place] MCV (RBC) [Entitic vol] 97.9 fL 82.6 - 102.9 fL [place] Monocytes (Bld) [#/Vol] 1.08 10*3/uL [place] Monocytes/100 WBC (Bld) 11 % 3 - 12 % [place] Platelet mean volume (Bld) [Entitic vol] 9.4 fL 8.1 - 13.5 fL [place] Platelets (Bld) [#/Vol] NOT REPORTED [place] Platelets (Bld) [#/Vol] 431 10*3/uL [place] RBC (Bld) [#/Vol] 2.84 10*6/uL Low 3.95 - 5.1 1 m/uL [place] RBC morphology finding Nom (Bld) NOT REPORTED [place] Segmented neutrophils/100 WBC (Bld) 66 % High 36 - 65 % [place] Segs Absolute 6.43 [place] WBC (Bld) [#/Vol] 0.0 10*3/uL 0.0 per 10 0 WBC [place] WBC (Bld) [#/Vol] 9.7 10*3/uL [place] WBC Morphology NOT REPORTED [place] Comprehensive Metabolic Pane riddhi 05-17-2020 Albumin [Mass/Vol] 2.2 g/dL Low 3.5 - 5.2 g/dL [place] Albumin/Globulin [Mass ratio] 0.7 {ratio} Low [place] ALP [Catalytic activity/Vol] 102 U/L 35 - 104 U/L [place] ALT [Catalytic activity/Vol] 7 U/L 5 - 33 U/L [place] Anion gap [Moles/Vol] 8 mmol/L Low 9 - 17 mmol/L [place] AST [Catalytic activity/Vol] 14 U/L <32 [place] Bilirubin Ql (U) 0.27 mg/dL Low 0.3 - 1.2 mg/dL [place] Bun/Cre Ratio 17 [place] Calcium [Mass/Vol] 8.4 mg/dL Low 8.6 - 10. 4 mg/dL [place] Chloride [Moles/Vol] 100 mmol/L 98 - 10 7 mmol/L [place] CO2 [Moles/Vol] 26 mmol/L 20 - 31 mmol/L [place] Creatinine [Mass/Vol] 1.01 mg/dL High 0.5 - 0.9 mg/dL [place] GFR >60 >60 mL/min [place] GFR Non- 52 mL/min Low >60 [place] Glucose [Mass/Vol] 124 mg/dL High 70 - 99 mg/dL [place] Interpretation and review of laboratory results Abnormal [place] Potassium [Moles/Vol] 4.1 mmol/L 3.7 - 5.3 mmol/L [place] Protein [Mass/Vol] 5.2 g/dL Low 6.4 - 8.3 g/dL [place] Sodium [Moles/Vol] 134 mmol/L Low 135 - 144 mmol/L [place] Urea nitrogen [Mass/Vol] 17 mg/dL 8 - 23 mg/dL [place] Metabolic Panelon 05-17-2020 GFR/1.73 sq M predicted among non-blacks MDRD (S/P/Bld) [Vol rate/Area] [place] Comment on above: Stage 1: Some [...] body mass. Additional eGFR calculator available at: http://www.[employer]/multiple_crcl_2012.htm HGB,HCTon 05-15-2020 Hematocrit (Bld) [Volume fraction] 26.2 % Low 37.0-47.0 [facility] Comment on above: Performed By: #### C BCWD, BMP, ANION, EGFR1 #### [facility] [address] [place] [address] Hemoglobin (Bld) [Mass/Vol] 8.3 gm/dl Low 12.0-16.0 [facility] Comment on above: Performed By: #### C GLENN, BMP, ANION, EGFR1 #### [employer] [address] [place] [address] Hemoglobin and hematocrit, b loodon 05-15-2020 Hematocrit (Bld) [Volume fraction] 26.2 % Low 37 - 47 % [place] Comment on above: Performed at [facility] [address] [place] [address] Hemoglobin (Bld) [Mass/Vol] 8.3 g/dL [place] Interpretation and review of laboratory results Abnormal [place] ANION GAPon 05-14-2020 Anion gap [Moles/Vol] 9.0 mmol/L Normal 8.0-16.0 [facility] Comment on above: Result Comment: ANIO N GAP = Sodium -(Chloride + CO2) Performed By: #### C BCALEKS, BMP, ANION, EGFR1 #### [employer] [address] [place] [phone] Anion Gapon 05-14-2020 Anion gap [Moles/Vol] 9.0 mmol/L 8 - 16 meq/L [place] Comment on above: ANION GAP = Sodium - (Chloride + CO2) Performed at [facility] [address] [address] BASIC METABOL PANELon 2019 Calcium [Mass/Vol] 7.6 mg/dL Low 8.5-10.5 [facility] Comment on above: Performed By: #### C BCWD, BMP, ANION, EGFR1 #### [employer] [address] [place] [address] Chloride [Moles/Vol] 105 mmol/L Normal 98-111 [facility] Comment on above: Performed By: #### C BCWD, BMP, ANION, EGFR1 #### [employer] [address] [place] [address] CO2 [Moles/Vol] 24 mmol/L Normal 23-33 [facility] Comment on above: Performed By: #### C BCWD, BMP, ANION, EGFR1 #### [employer] [address] [place] [address] Creatinine [Mass/Vol] 1.1 mg/dL Normal 0.4-1.2 [facility] Comment on above: Performed By: #### C BCWD, BMP, ANION, EGFR1 #### [facility] [address] [place] [address] Glucose [Mass/Vol] 104 mg/dL Normal 70-108 [facility] Comment on above: Performed By: #### C BCWD, BMP, ANION, EGFR1 #### [facility] [address] [place] [address] Potassium [Moles/Vol] 4.0 mmol/L Normal 3.5-5.2 [facility] Comment on above: Performed By: #### C BCWD, BMP, ANION, EGFR1 #### [facility] [address] [place] [address] Sodium [Moles/Vol] 138 mmol/L Normal 135-145 [facility] Comment on above: Performed By: #### C BCWD, BMP, ANION, EGFR1 #### [facility] [address] [place] [address] Urea nitrogen [Mass/Vol] 18 mg/dL Normal 7-22 [facility] Comment on above: Performed By: #### C BCWD, BMP, ANION, EGFR1 #### [facility] [address] [place] [phone] Basic Metabolic Panelon 04-27 Calcium [Mass/Vol] 7.6 mg/dL Low 8.5 - 10. 5 mg/dL [place] Comment on above: Performed at [facility] [address] [place] [address] Chloride [Moles/Vol] 105 mmol/L 98 - 11 1 meq/L [place] CO2 [Moles/Vol] 24 mmol/L 23 - 33 meq/L [place] Creatinine [Mass/Vol] 1.1 mg/dL 0.4 - 1.2 mg/dL [place] Glucose [Mass/Vol] 104 mg/dL 70 - 108 mg/dL [place] Potassium [Moles/Vol] 4.0 mmol/L 3.5 - 5.2 meq/L [place] Sodium [Moles/Vol] 138 mmol/L 135 - 145 meq/L [place] Urea nitrogen [Mass/Vol] 18 mg/dL 7 - 22 mg/dL [place] CBC Auto Differentialon 04-27 Basophils (Bld) [#/Vol] 0.0 10*3/uL [place] Basophils/100 WBC (Bld) 0.2 % [place] Eosinophils (Bld) [#/Vol] 0.2 10*3/uL [place] Eosinophils/100 WBC (Bld) 2 % [place] Erythrocyte distribution width (RBC) [Ratio] 15.2 % High 11.5 - 14.5 % [place] Hematocrit (Bld) [Volume fraction] 23.1 % Low 37 - 47 % [place] Hemoglobin (Bld) [Mass/Vol] 7.0 g/dL Critically low [place] Immature Grans (Abs) 0.07 [place] Immature granulocytes (Bld) [#/Vol] 0.7 % [place] Interpretation and review of laboratory results Abnormal [place] Lymphocytes (Bld) [#/Vol] 2.0 10*3/uL [place] Lymphocytes/100 WBC (Bld) 19.6 % [place] MCH (RBC) [Entitic mass] 29.4 pg 26 - 33 pg [place] MCHC (RBC) [Mass/Vol] 30.3 g/dL [place] MCV (RBC) [Entitic vol] 97.1 fL 81 - 99 fL [place] Monocytes (Bld) [#/Vol] 0.9 10*3/uL [place] Monocytes/100 WBC (Bld) 8.4 % [place] Nucleated RBC/100 WBC (Bld) [Ratio] 0 % /100 wbc [place] Pathologist Review Shona VILLAFA[place] Platelet mean volume (Bld) [Entitic vol] 9.5 fL 9.4 - 12.4 fL [place] Platelets (Bld) [#/Vol] ADEQUATE Adequate [place] Platelets (Bld) [#/Vol] 385 10*3/uL [place] RBC (Bld) [#/Vol] 2.38 10*6/uL [place] RDW-SD 53.4 fL High 35 - 45 fL [place] Rouleaux SLIGHT Absent [place] Comment on above: Performed at [facility] [address] [place] [address] Segmented neutrophils/100 WBC (Bld) 69.1 % [place] Segs Absolute 7.0 [place] WBC (Bld) [#/Vol] 10.2 10*3/uL [place] CBC WITH DIFFERENTIALon 04-27 PATHOLOGIST REVIEWED Shona VILLAFANA Normal [facility] Comment on above: Performed By: #### C BCWD, BMP, ANION, EGFR1 #### [facility] [address] [place] [address] Platelets (Bld) [#/Vol] ADEQUATE Normal Adequate [facility] Comment on above: Performed By: #### C BCWD, BMP, ANION, EGFR1 #### [facility] [address] [place] [address] ROULEAUX SLIGHT Normal Absent [facility] Comment on above: Performed By: #### C BCWD, BMP, ANION, EGFR1 #### [facility] [address] [place] [address] ABS IMMATURE GRANS (IG) 0.07 thou/mm3 Normal 0.00-0.07 [facility] Comment on above: Performed By: #### C BCWD, BMP, ANION, EGFR1 #### [facility] [address] [place] [address] ABS NEUTROPHILS 7.0 thou/mm3 Normal 1.8-7.7 [facility] Comment on above: Performed By: #### C BCWD, BMP, ANION, EGFR1 #### [facility] [address] [place] [address] Basophils (Bld) [#/Vol] 0.0 thou/mm3 Normal 0.0-0.1 [facility] Comment on above: Performed By: #### C BCWD, BMP, ANION, EGFR1 #### [facility] [address] [place] [address] Basophils/100 WBC (Bld) 0.2 % Normal [facility] Comment on above: Performed By: #### C BCWD, BMP, ANION, EGFR1 #### [address] [address] Eosinophils (Bld) [#/Vol] 0.2 thou/mm3 Normal 0.0-0.4 [facility] Comment on above: Performed By: #### C BCWD, BMP, ANION, EGFR1 #### [address] [address] Eosinophils/100 WBC (Bld) 2.0 % Normal [facility] Comment on above: Performed By: #### C BCWD, BMP, ANION, EGFR1 #### [address] [address] Erythrocyte distribution width (RBC) [Ratio] 15.2 % High 11.5-14.5 [facility] Comment on above: Performed By: #### C BCWD, BMP, ANION, EGFR1 #### [address] [address] Hematocrit (Bld) [Volume fraction] 23.1 % Low 37.0-47.0 [facility] Comment on above: Performed By: #### C BCWD, BMP, ANION, EGFR1 #### [address] [address] Hemoglobin (Bld) [Mass/Vol] 7.0 gm/dl Critically low 12.0-16.0 [facility] Comment on above: Performed By: #### C BCWD, BMP, ANION, EGFR1 #### [address] [address] IMMATURE GRANS (IG) 0.7 % Normal [facility] Comment on above: Performed By: #### C BCWD, BMP, ANION, EGFR1 #### [address] [address] Lymphocytes (Bld) [#/Vol] 2.0 thou/mm3 Normal 1.0-4.8 [facility] Comment on above: Performed By: #### C BCWD, BMP, ANION, EGFR1 #### [address] [address] Lymphocytes/100 WBC (Bld) 19.6 % Normal [facility] Comment on above: Performed By: #### C BCWD, BMP, ANION, EGFR1 #### [address] [address] MCH (RBC) [Entitic mass] 29.4 pg Normal 26.0-33.0 [facility] Comment on above: Performed By: #### C BCWD, BMP, ANION, EGFR1 #### [place] [address] MCHC (RBC) [Mass/Vol] 30.3 gm/dl Low 32.2-35.5 [facility] Comment on above: Performed By: #### C BCWD, BMP, ANION, EGFR1 #### [address] [address] MCV (RBC) [Entitic vol] 97.1 fL Normal 81.0-99.0 [facility] Comment on above: Performed By: #### C BCWD, BMP, ANION, EGFR1 #### [address] [address] Monocytes (Bld) [#/Vol] 0.9 thou/mm3 Normal 0.4-1.3 [facility] Comment on above: Performed By: #### C BCWD, BMP, ANION, EGFR1 #### [address] [address] Monocytes/100 WBC (Bld) 8.4 % Normal [facility] Comment on above: Performed By: #### C BCWD, BMP, ANION, EGFR1 #### [employer] [address] [place] [address] Neutrophils/100 WBC (Bld) 69.1 % Normal [facility] Comment on above: Performed By: #### C BCWD, BMP, ANION, EGFR1 #### [facility] [address] [place] [address] Nucleated RBC/100 WBC (Bld) [Ratio] 0 /100 wbc Normal [facility] Comment on above: Performed By: #### C BCWD, BMP, ANION, EGFR1 #### [address] [address] Platelet mean volume (Bld) [Entitic vol] 9.5 fL Normal 9.4-12.4 [facility] Comment on above: Performed By: #### C BCWD, BMP, ANION, EGFR1 #### [address] [address] Platelets (Bld) [#/Vol] 385 thou/mm3 Normal 130-400 [facility] Comment on above: Performed By: #### C BCWD, BMP, ANION, EGFR1 #### [address] [address] RBC (Bld) [#/Vol] 2.38 mill/mm3 Low 4.20-5.40 [facility] Comment on above: Performed By: #### C BCWD, BMP, ANION, EGFR1 #### [employer] [address] [address] RDW-SD 53.4 fL High 35.0-45.0 [facility] Comment on above: Performed By: #### C BCWD, BMP, ANION, EGFR1 #### [facility] [address] [address] WBC (Bld) [#/Vol] 10.2 thou/mm3 Normal 4.8-10.8 [facility] Comment on above: Performed By: #### C BCWD, BMP, ANION, EGFR1 #### [facility] [address] [address] GFR, ESTIMATEDon 05-14-2020 GFR/1.73 sq M.predicted MDRD (S/P/Bld) [Vol rate/Area] 47 ml/min/1.73m2 Abnormal [facility] Comment on above: Result Comment: Stag e [...] #### C BCWD, BMP, ANION, EGFR1 #### [employer] [address] [place] [address] Glomerular Filtration Rate, Estimatedon 05-14-2020 Est, Glom Filt Rate 47 Abnormal ml/min/1 .73m 2 [place] Comment on above: Stage Description GF [...] Vol. 139 (2) pg 137-147. Performed at [facility] [address] [place] [address] HGB,HCTon 05-14-2020 Hematocrit (Bld) [Volume fraction] 27.1 % Low 37.0-47.0 [facility] Comment on above: Performed By: #### C BCWD, BMP, ANION, EGFR1 #### [employer] [address] [place] [address] Hemoglobin (Bld) [Mass/Vol] 8.2 gm/dl Low 12.0-16.0 [facility] Comment on above: Performed By: #### C BCWD, BMP, ANION, EGFR1 #### [employer] [address] [place] [address] Hemoglobin and hematocrit, b loodon 05-14-2020 Hematocrit (Bld) [Volume fraction] 27.1 % Low 37 - 47 % [place] Comment on above: Performed at [facility] [address] [place] [address] Hemoglobin (Bld) [Mass/Vol] 8.2 g/dL [place] Interpretation and review of laboratory results Abnormal [place] LEUKO-REDUCED RCon 0 -1 IRR LEUKO-REDUCED RC [id number] transfused Normal [facility] Comment on above: Performed By: #### C BCWD, BMP, ANION, EGFR1 #### [employer] [address] [address] Otheron 05-14-2020 Interpretation and review of laboratory results Abnormal [place] SCAN OF BLOOD SMEARon 2019 SCAN OF BLOOD SMEAR see below Normal [facility] Comment on above: Result Comment: Crit eria Exceeded; Scan of Differential Slide Performed Performed By: #### C BCWD, BMP, ANION, EGFR1 #### [employer] [address] [address] Scan of Blood Smearon 2019 SCAN OF BLOOD SMEAR see below [place] Comment on above: Criteria Exceeded; S can of Differential Slide Performed Performed at [facility] [place] [address] TYPE AND SCREENon 05-14-2020 ABO A [place] Rh Factor Positive [place] TYPE AND SCREEN CAPTUREon ABO CAPTURE A Normal [facility] Comment on above: Performed By: #### C BCWD, BMP, ANION, EGFR1 #### [employer] [address] [place] [address] INDIRECT AUTUMN CAPTURE Negative Normal [facility] Comment on above: Performed By: #### C BCWD, BMP, ANION, EGFR1 #### [employer] [address] [place] [address] RH CAPTURE (2 D CLONES) Positive Normal [facility] Comment on above: Performed By: #### C BCWD, BMP, ANION, EGFR1 #### [facility] [address] [place] [address] XR FOOT LEFT (MIN 3 VIEWS)on 05-14-2020 [...] Rodrick Baker MD 05/14/20 Final result Normal [facility] 1. Osteoporosis. Multifocal degenerative changes. 2. Soft tissue swelling of the foot. Questionable small erosion first metatarsal head versus cortical cyst.. Cannot exclude gout. This report has been created using voice recognition software. It may contain minor errors which are inherent in voice recognition technology. Final report electronically signed by Dr. Rodrick Baker on 05/14/2020 8:45 AM [facility], [place] PROCEDURE: XR FOOT LEFT (MIN 3 VIEWS) [...] the first metatarsal head. Cannot exclude gout. [place], [facility] Incoming Radiant Results From [email or web address] - 05/14/2020 8:47 AM EDT PROCEDURE: XR [...] Dr. Rodrick Baker on 05/14/2020 8:45 AM [place] ANION GAPon 05-13-2020 Anion gap [Moles/Vol] 10.0 mmol/L Normal 8.0-16.[address] [facility] Comment on above: Result Comment: ANIO N GAP = Sodium -(Chloride + CO2) Performed By: #### C GLENN, BMP, ANION, EGFR1 #### [facility] [address] [place] [address] Anion Gapon 05-13-2020 Anion gap [Moles/Vol] 10.0 mmol/L 8 - 16 meq/L [place] Comment on above: ANION GAP = Sodium - (Chloride + CO2) Performed at [facility] [address] [place] [address] BASIC METABOL PANELon 2019 Calcium [Mass/Vol] 7.8 mg/dL Low 8.5-10.5 [facility] Comment on above: Performed By: #### C BCWD, BMP, ANION, EGFR1 #### [facility] [address] [place] [address] Chloride [Moles/Vol] 102 mmol/L Normal 98-111 [facility] Comment on above: Performed By: #### C BCWD, BMP, ANION, EGFR1 #### [facility] [address] [place] [address] CO2 [Moles/Vol] 23 mmol/L Normal 23-33 [facility] Comment on above: Performed By: #### C BCWD, BMP, ANION, EGFR1 #### [facility] [address] [place] [address] Creatinine [Mass/Vol] 1.0 mg/dL Normal 0.4-1.2 [facility] Comment on above: Performed By: #### C BCWD, BMP, ANION, EGFR1 #### [facility] [address] [place] [address] Glucose [Mass/Vol] 151 mg/dL High 70-108 [facility] Comment on above: Performed By: #### C BCWD, BMP, ANION, EGFR1 #### [facility] [address] [place] [address] Potassium [Moles/Vol] 4.0 mmol/L Normal 3.5-5.2 [facility] Comment on above: Performed By: #### C BCWD, BMP, ANION, EGFR1 #### [facility] [address] [place] [address] Sodium [Moles/Vol] 135 mmol/L Normal 135-145 [facility] Comment on above: Performed By: #### C BCWD, BMP, ANION, EGFR1 #### [facility] [address] [place] [address] Urea nitrogen [Mass/Vol] 18 mg/dL Normal 7-22 [facility] Comment on above: Performed By: #### C BCWD, BMP, ANION, EGFR1 #### [facility] [address] [place] [address] Basic Metabolic Panelon 04-27 Calcium [Mass/Vol] 7.8 mg/dL Low 8.5 - 10. 5 mg/dL [place] Comment on above: Performed at [facility] [address] [place] [address] Chloride [Moles/Vol] 102 mmol/L 98 - 11 1 meq/L [place] CO2 [Moles/Vol] 23 mmol/L 23 - 33 meq/L [place] Creatinine [Mass/Vol] 1 mg/dL 0.4 - 1.2 mg/dL [place] Glucose [Mass/Vol] 151 mg/dL High 70 - 108 mg/dL [place] Potassium [Moles/Vol] 4.0 mmol/L 3.5 - 5.2 meq/L [place] Sodium [Moles/Vol] 135 mmol/L 135 - 145 meq/L [place] Urea nitrogen [Mass/Vol] 18 mg/dL 7 - 22 mg/dL [place] CBC Auto Differentialon 04-27 Basophils (Bld) [#/Vol] 0.0 10*3/uL [place] Basophils/100 WBC (Bld) 0.1 % [place] Eosinophils (Bld) [#/Vol] 0.1 10*3/uL [place] Eosinophils/100 WBC (Bld) 1.3 % [place] Erythrocyte distribution width (RBC) [Ratio] 15.1 % High 11.5 - 14.5 % [place] Hematocrit (Bld) [Volume fraction] 25.0 % Low 37 - 47 % [place] Hemoglobin (Bld) [Mass/Vol] 7.6 g/dL Low [place] Immature Grans (Abs) 0.12 High [place] Immature granulocytes (Bld) [#/Vol] 1 % [place] Interpretation and review of laboratory results Abnormal [place] Lymphocytes (Bld) [#/Vol] 1.5 10*3/uL [place] Lymphocytes/100 WBC (Bld) 13.4 % [place] MCH (RBC) [Entitic mass] 30.0 pg 26 - 33 pg [place] MCHC (RBC) [Mass/Vol] 30.4 g/dL [place] MCV (RBC) [Entitic vol] 98.8 fL 81 - 99 fL [place], [place] Monocytes (Bld) [#/Vol] 0.8 10*3/uL [place] Monocytes/100 WBC (Bld) 7.3 % [place] Nucleated RBC/100 WBC (Bld) [Ratio] 0 % /100 wbc [place] Comment on above: Performed at [facility] [employer] [facility] [address] [place] [address] Platelet mean volume (Bld) [Entitic vol] 9.5 fL 9.4 - 12.4 fL [place] Platelets (Bld) [#/Vol] 396 10*3/uL [place] RBC (Bld) [#/Vol] 2.53 10*6/uL [place] RDW-SD 54.4 fL High 35 - 45 fL [place] Segmented neutrophils/100 WBC (Bld) 76.9 % [place] Segs Absolute 8.8 [place] WBC (Bld) [#/Vol] 11.5 10*3/uL [place] CBC WITH DIFFERENTIALon 04-27 ABS IMMATURE GRANS (IG) 0.12 thou/mm3 High 0.00-0.07 [facility] Comment on above: Performed By: #### C BCWD, BMP, ANION, EGFR1 #### [employer] [address] [place] [address] ABS NEUTROPHILS 8.8 thou/mm3 High 1.8-7.7 [facility] Comment on above: Performed By: #### C BCWD, BMP, ANION, EGFR1 #### [employer] [address] [place] [address] Basophils (Bld) [#/Vol] 0.0 thou/mm3 Normal 0.0-0.1 [facility] Comment on above: Performed By: #### C BCWD, BMP, ANION, EGFR1 #### [facility] [address] [address] Basophils/100 WBC (Bld) 0.1 % Normal [facility] Comment on above: Performed By: #### C BCWD, BMP, ANION, EGFR1 #### [facility] [address] [place] [address] Eosinophils (Bld) [#/Vol] 0.1 thou/mm3 Normal 0.0-0.4 [facility] Comment on above: Performed By: #### C BCWD, BMP, ANION, EGFR1 #### [facility] [address] [place] [address] Eosinophils/100 WBC (Bld) 1.3 % Normal [facility] Comment on above: Performed By: #### C BCWD, BMP, ANION, EGFR1 #### [address] [address] Erythrocyte distribution width (RBC) [Ratio] 15.1 % High 11.5-14.5 [facility] Comment on above: Performed By: #### C BCWD, BMP, ANION, EGFR1 #### [address] [address] Hematocrit (Bld) [Volume fraction] 25.0 % Low 37.0-47.0 [facility] Comment on above: Performed By: #### C BCWD, BMP, ANION, EGFR1 #### [address] [address] Hemoglobin (Bld) [Mass/Vol] 7.6 gm/dl Low 12.0-16.0 [facility] Comment on above: Performed By: #### C BCWD, BMP, ANION, EGFR1 #### [address] [address] IMMATURE GRANS (IG) 1.0 % Normal [facility] Comment on above: Performed By: #### C BCWD, BMP, ANION, EGFR1 #### [address] [address] Lymphocytes (Bld) [#/Vol] 1.5 thou/mm3 Normal 1.0-4.8 [facility] Comment on above: Performed By: #### C BCWD, BMP, ANION, EGFR1 #### [address] [address] Lymphocytes/100 WBC (Bld) 13.4 % Normal [facility] Comment on above: Performed By: #### C BCWD, BMP, ANION, EGFR1 #### [facility] [address] [place] [address] MCH (RBC) [Entitic mass] 30.0 pg Normal 26.0-33.0 [facility] Comment on above: Performed By: #### C BCWD, BMP, ANION, EGFR1 #### [address] [address] MCHC (RBC) [Mass/Vol] 30.4 gm/dl Low 32.2-35.5 [facility] Comment on above: Performed By: #### C BCWD, BMP, ANION, EGFR1 #### [address] [address] MCV (RBC) [Entitic vol] 98.8 fL Normal 81.0-99.0 [facility] Comment on above: Performed By: #### C BCWD, BMP, ANION, EGFR1 #### [address] [address] Monocytes (Bld) [#/Vol] 0.8 thou/mm3 Normal 0.4-1.3 [facility] Comment on above: Performed By: #### C BCWD, BMP, ANION, EGFR1 #### [address] [address] Monocytes/100 WBC (Bld) 7.3 % Normal [facility] Comment on above: Performed By: #### C BCWD, BMP, ANION, EGFR1 #### [address] [address] Neutrophils/100 WBC (Bld) 76.9 % Normal [facility] Comment on above: Performed By: #### C BCWD, BMP, ANION, EGFR1 #### [address] [address] Nucleated RBC/100 WBC (Bld) [Ratio] 0 /100 wbc Normal [facility] Comment on above: Performed By: #### C BCWD, BMP, ANION, EGFR1 #### [facility] [address] [place] [address] Platelet mean volume (Bld) [Entitic vol] 9.5 fL Normal 9.4-12.4 [facility] Comment on above: Performed By: #### C BCWD, BMP, ANION, EGFR1 #### [place] [address] Platelets (Bld) [#/Vol] 396 thou/mm3 Normal 130-400 [facility] Comment on above: Performed By: #### C BCWD, BMP, ANION, EGFR1 #### [place] [address] RBC (Bld) [#/Vol] 2.53 mill/mm3 Low 4.20-5.40 [facility] Comment on above: Performed By: #### C BCWD, BMP, ANION, EGFR1 #### [place] [address] RDW-SD 54.4 fL High 35.0-45.0 [facility] Comment on above: Performed By: #### C BCWD, BMP, ANION, EGFR1 #### [place] [address] WBC (Bld) [#/Vol] 11.5 thou/mm3 High 4.8-10.8 [facility] Comment on above: Performed By: #### C BCWD, BMP, ANION, EGFR1 #### [place] [address] GFR, ESTIMATEDon 05-13-2020 GFR/1.73 sq M.predicted MDRD (S/P/Bld) [Vol rate/Area] 53 ml/min/1.73m2 Abnormal [facility] Comment on above: Result Comment: Aris pelaez Description GFR, ml/min/1.73 m2 - At increased [...] #### C BCWD, BMP, ANION, EGFR1 #### [facility] [address] [place] [address] Glomerular Filtration Rate, Estimatedon 05-13-2020 Est, Glom Filt Rate 53 Abnormal ml/min/1 .73m 2 [place] Comment on above: Stage Description GF [...] Vol. 139 (2) pg 137-147. Performed at [facility] [address] [place] [address] Otheron 05-13-2020 Interpretation and review of laboratory results Abnormal [place] ANION GAPon 05-12-2020 Anion gap [Moles/Vol] 8.0 mmol/L Normal 8.0-16.0 [facility] Comment on above: Result Comment: ANIO N GAP = Sodium -(Chloride + CO2) Performed By: #### B MP, ANION, EGFR1, CBCWD #### [facility] [address] [place] [address] Anion Gapon 05-12-2020 Anion gap [Moles/Vol] 8.0 mmol/L 8 - 16 meq/L [place], [place] Comment on above: ANION GAP = Sodium - (Chloride + CO2) Performed at [facility] [address] [place] [address] BASIC METABOL PANELon 2019 Calcium [Mass/Vol] 7.7 mg/dL Low 8.5-10.5 [facility] Comment on above: Performed By: #### B MP, ANION, EGFR1, CBCWD #### [facility] [address] [place] [address] Chloride [Moles/Vol] 105 mmol/L Normal 98-111 [facility] Comment on above: Performed By: #### B MP, ANION, EGFR1, CBCWD #### [facility] [address] [place] [address] CO2 [Moles/Vol] 24 mmol/L Normal 23-33 [facility] Comment on above: Performed By: #### B MP, ANION, EGFR1, CBCWD #### [facility] [address] [place] [address] Creatinine [Mass/Vol] 1.1 mg/dL Normal 0.4-1.2 [facility] Comment on above: Performed By: #### B MP, ANION, EGFR1, CBCWD #### [facility] [address] [place] [address] Glucose [Mass/Vol] 123 mg/dL High 70-108 [facility] Comment on above: Performed By: #### B MP, ANION, EGFR1, CBCWD #### [facility] [address] [place] [address] Potassium [Moles/Vol] 3.9 mmol/L Normal 3.5-5.2 [facility] Comment on above: Performed By: #### B MP, ANION, EGFR1, CBCWD #### [facility] [address] [place] [address] Sodium [Moles/Vol] 137 mmol/L Normal 135-145 [facility] Comment on above: Performed By: #### B MP, ANION, EGFR1, CBCWD #### [facility] [address] [place] [address] Urea nitrogen [Mass/Vol] 20 mg/dL Normal 7-22 [facility] Comment on above: Performed By: #### B MP, ANION, EGFR1, CBCWD #### [facility] [address] [place] [address] Basic Metabolic Panelon 08-10 02-2019 Calcium [Mass/Vol] 7.7 mg/dL Low 8.5 - 10. 5 mg/dL [place] Comment on above: Performed at [facility] [address] [place] [address] Chloride [Moles/Vol] 105 mmol/L 98 - 11 1 meq/L [place] CO2 [Moles/Vol] 24 mmol/L 23 - 33 meq/L [place] Creatinine [Mass/Vol] 1.1 mg/dL 0.4 - 1.2 mg/dL [place] Glucose [Mass/Vol] 123 mg/dL High 70 - 108 mg/dL [place] Potassium [Moles/Vol] 3.9 mmol/L 3.5 - 5.2 meq/L [place] Sodium [Moles/Vol] 137 mmol/L 135 - 145 meq/L [place] Urea nitrogen [Mass/Vol] 20 mg/dL 7 - 22 mg/dL [place] Bladder scanon 05-12-2020 Dora Costa 05/12/2020 1:12 PM Bladder scan was completed by Sadie Costa at 1245pm. The residual amount of 725ml was resulted to Mirza WESLEY. [place] Flora Nesbitt 05/12/2020 12:25 AM A Bladder scan was performed at 0021 . The patient's last void was at has not voided since she was straight cathed at 15:30. The residual amount was measured to be 656 ML. Report of results was given to Missy WESLEY. [place], [place] CBC Auto Differentialon 04-27 Basophils (Bld) [#/Vol] 0.0 10*3/uL [place] Basophils/100 WBC (Bld) 0.1 % [place] Eosinophils (Bld) [#/Vol] 0.2 10*3/uL [place] Eosinophils/100 WBC (Bld) 2.4 % [place] Erythrocyte distribution width (RBC) [Ratio] 15 % High 11.5 - 14.5 % [place] Hematocrit (Bld) [Volume fraction] 24.8 % Low 37 - 47 % [place] Hemoglobin (Bld) [Mass/Vol] 7.4 g/dL Low [place] Immature Grans (Abs) 0.06 [place] Immature granulocytes (Bld) [#/Vol] 0.6 % [place] Interpretation and review of laboratory results Abnormal [place] Lymphocytes (Bld) [#/Vol] 1.4 10*3/uL [place] Lymphocytes/100 WBC (Bld) 14.9 % [place] MCH (RBC) [Entitic mass] 29.4 pg 26 - 33 pg [place] MCHC (RBC) [Mass/Vol] 29.8 g/dL [place] MCV (RBC) [Entitic vol] 98.4 fL 81 - 99 fL [place] Monocytes (Bld) [#/Vol] 0.9 10*3/uL [place] Monocytes/100 WBC (Bld) 8.9 % [place] Nucleated RBC/100 WBC (Bld) [Ratio] 0 % /100 wbc [place] Comment on above: Performed at [facility] [address] [place] [address] Platelet mean volume (Bld) [Entitic vol] 9.6 fL 9.4 - 12.4 fL [place] Platelets (Bld) [#/Vol] 370 10*3/uL [place] RBC (Bld) [#/Vol] 2.52 10*6/uL [place] RDW-SD 54 fL High 35 - 45 fL [place] Segmented neutrophils/100 WBC (Bld) 73.1 % [place] Segs Absolute 7.0 [place] WBC (Bld) [#/Vol] 9.6 10*3/uL [place] CBC WITH DIFFERENTIALon 04-27 ABS IMMATURE GRANS (IG) 0.06 thou/mm3 Normal 0.00-0.07 [facility] Comment on above: Performed By: #### B MP, ANION, EGFR1, CBCWD #### [facility] [address] [place] [address] ABS NEUTROPHILS 7.0 thou/mm3 Normal 1.8-7.7 [facility] Comment on above: Performed By: #### B MP, ANION, EGFR1, CBCWD #### [facility] [address] [place] [address] Basophils (Bld) [#/Vol] 0.0 thou/mm3 Normal 0.0-0.1 [facility] Comment on above: Performed By: #### B MP, ANION, EGFR1, CBCWD #### [facility] [address] [place] [address] Basophils/100 WBC (Bld) 0.1 % Normal [facility] Comment on above: Performed By: #### B MP, ANION, EGFR1, CBCWD #### [facility] [address] [place] [address] Eosinophils (Bld) [#/Vol] 0.2 thou/mm3 Normal 0.0-0.4 [facility] Comment on above: Performed By: #### B MP, ANION, EGFR1, CBCWD #### [facility] [address] [place] [address] Eosinophils/100 WBC (Bld) 2.4 % Normal [facility] Comment on above: Performed By: #### B MP, ANION, EGFR1, CBCWD #### [facility] [address] [place] [address] Erythrocyte distribution width (RBC) [Ratio] 15.0 % High 11.5-14.5 [facility] Comment on above: Performed By: #### B MP, ANION, EGFR1, CBCWD #### [facility] [address] [place] [address] Hematocrit (Bld) [Volume fraction] 24.8 % Low 37.0-47.0 [facility] Comment on above: Performed By: #### B MP, ANION, EGFR1, CBCWD #### [facility] [address] [place] [address] Hemoglobin (Bld) [Mass/Vol] 7.4 gm/dl Low 12.0-16.0 [facility] Comment on above: Performed By: #### B MP, ANION, EGFR1, CBCWD #### [address] [address] IMMATURE GRANS (IG) 0.6 % Normal [facility] Comment on above: Performed By: #### B MP, ANION, EGFR1, CBCWD #### [address] [address] Lymphocytes (Bld) [#/Vol] 1.4 thou/mm3 Normal 1.0-4.8 [facility] Comment on above: Performed By: #### B MP, ANION, EGFR1, CBCWD #### [address] [address] Lymphocytes/100 WBC (Bld) 14.9 % Normal [facility] Comment on above: Performed By: #### B MP, ANION, EGFR1, CBCWD #### [place] [address] MCH (RBC) [Entitic mass] 29.4 pg Normal 26.0-33.0 [facility] Comment on above: Performed By: #### B MP, ANION, EGFR1, CBCWD #### [address] [address] MCHC (RBC) [Mass/Vol] 29.8 gm/dl Low 32.2-35.5 [facility] Comment on above: Performed By: #### B MP, ANION, EGFR1, CBCWD #### [address] [address] MCV (RBC) [Entitic vol] 98.4 fL Normal 81.0-99.0 [facility] Comment on above: Performed By: #### B MP, ANION, EGFR1, CBCWD #### [address] [address] Monocytes (Bld) [#/Vol] 0.9 thou/mm3 Normal 0.4-1.3 [facility] Comment on above: Performed By: #### B MP, ANION, EGFR1, CBCWD #### [address] [address] Monocytes/100 WBC (Bld) 8.9 % Normal [facility] Comment on above: Performed By: #### B MP, ANION, EGFR1, CBCWD #### [address] [address] Neutrophils/100 WBC (Bld) 73.1 % Normal [facility] Comment on above: Performed By: #### B MP, ANION, EGFR1, CBCWD #### [address] [address] Nucleated RBC/100 WBC (Bld) [Ratio] 0 /100 wbc Normal [facility] Comment on above: Performed By: #### B MP, ANION, EGFR1, CBCWD #### [address] [address] Platelet mean volume (Bld) [Entitic vol] 9.6 fL Normal 9.4-12.4 [facility] Comment on above: Performed By: #### B MP, ANION, EGFR1, CBCWD #### [address] [address] Platelets (Bld) [#/Vol] 370 thou/mm3 Normal 130-400 [facility] Comment on above: Performed By: #### B MP, ANION, EGFR1, CBCWD #### [address] [address] RBC (Bld) [#/Vol] 2.52 mill/mm3 Low 4.20-5.40 [facility] Comment on above: Performed By: #### B MP, ANION, EGFR1, CBCWD #### [address] [address] RDW-SD 54.0 fL High 35.0-45.0 [facility] Comment on above: Performed By: #### B MP, ANION, EGFR1, CBCWD #### [address] [address] WBC (Bld) [#/Vol] 9.6 thou/mm3 Normal 4.8-10.8 [facility] Comment on above: Performed By: #### B MP, ANION, EGFR1, CBCWD #### [facility] [address] [place] [address] GFR, ESTIMATEDon 05-12-2020 GFR/1.73 sq M.predicted MDRD (S/P/Bld) [Vol rate/Area] 47 ml/min/1.73m2 Abnormal [facility] Comment on above: Result Comment: Stag e [...] #### B MP, ANION, EGFR1, CBCWD #### [employer] [address] [place] [address] Glomerular Filtration Rate, Estimatedon 05-12-2020 Est, Glom Filt Rate 47 Abnormal ml/min/1 .73m 2 [place] Comment on above: Stage Description G FR, ml/min/1.73 m2 - At increased risk > [...] Vol. 139 (2) pg 137-147. Performed at [facility] [address] [place] [address] Otheron 05-12-2020 Interpretation and review of laboratory results Abnormal [place] ANION GAPon 05-11-2020 Anion gap [Moles/Vol] 11.0 mmol/L Normal 8.0-16.[address] [facility] Comment on above: Result Comment: ANIO N GAP = Sodium -(Chloride + CO2) Performed By: #### C BCWD, BMP, ANION, EGFR1 #### [facility] [address] [place] [address] Anion Gapon 05-11-2020 Anion gap [Moles/Vol] 11.0 mmol/L 8 - 16 meq/L [facility] [place] Comment on above: ANION GAP = Sodium - (Chloride + CO2) Performed at [facility] [address] [place] [address] BASIC METABOL PANELon 2019 Calcium [Mass/Vol] 8.1 mg/dL Low 8.5-10.5 [facility] Comment on above: Performed By: #### C BCWD, BMP, ANION, EGFR1 #### [facility] [address] [place] [address] Chloride [Moles/Vol] 107 mmol/L Normal 98-111 [facility] Comment on above: Performed By: #### C BCWD, BMP, ANION, EGFR1 #### [facility] [address] [place] [address] CO2 [Moles/Vol] 24 mmol/L Normal 23-33 [facility] Comment on above: Performed By: #### C BCWD, BMP, ANION, EGFR1 #### [facility] [address] [place] [address] Creatinine [Mass/Vol] 1.1 mg/dL Normal 0.4-1.2 [facility] Comment on above: Performed By: #### C BCWD, BMP, ANION, EGFR1 #### [facility] [address] [place] [address] Glucose [Mass/Vol] 131 mg/dL High 70-108 [facility] Comment on above: Performed By: #### C BCWD, BMP, ANION, EGFR1 #### [facility] [address] [place] [address] Potassium [Moles/Vol] 4.3 mmol/L Normal 3.5-5.2 [facility] Comment on above: Performed By: #### C BCWD, BMP, ANION, EGFR1 #### [facility] [address] [place] [address] Sodium [Moles/Vol] 142 mmol/L Normal 135-145 [facility] Comment on above: Performed By: #### C BCWD, BMP, ANION, EGFR1 #### [facility] [address] [place] [address] Urea nitrogen [Mass/Vol] 23 mg/dL High 7-22 [facility] Comment on above: Performed By: #### C BCWD, BMP, ANION, EGFR1 #### [facility] [address] [place] [address] Basic Metabolic Panelon 04-27 Calcium [Mass/Vol] 8.1 mg/dL Low 8.5 - 10. 5 mg/dL [place] Comment on above: Performed at [facility] [address] [place] [address] Chloride [Moles/Vol] 107 mmol/L 98 - 11 1 meq/L [place] CO2 [Moles/Vol] 24 mmol/L 23 - 33 meq/L [place] Creatinine [Mass/Vol] 1.1 mg/dL 0.4 - 1.2 mg/dL [place] Glucose [Mass/Vol] 131 mg/dL High 70 - 108 mg/dL [place] Potassium [Moles/Vol] 4.3 mmol/L 3.5 - 5.2 meq/L [place] Sodium [Moles/Vol] 142 mmol/L 135 - 145 meq/L [place] Urea nitrogen [Mass/Vol] 23 mg/dL High 7 - 22 mg/dL [place] Bladder scanon 05-11-2020 Dora Costa 05/11/2020 3:29 PM Bladder scan was completed by Sadie Costa at 1505. The residual amount of 770ml was resulted to Franca WESLEY. [place] CBC Auto Differentialon 04-27 Basophils (Bld) [#/Vol] 0.0 10*3/uL [place] Basophils/100 WBC (Bld) 0.2 % [place] Eosinophils (Bld) [#/Vol] 0.1 10*3/uL [place] Eosinophils/100 WBC (Bld) 0.7 % [place] Erythrocyte distribution width (RBC) [Ratio] 15.5 % High 11.5 - 14.5 % [place] Hematocrit (Bld) [Volume fraction] 30.3 % Low 37 - 47 % [place] Hemoglobin (Bld) [Mass/Vol] 8.9 g/dL Low [place] Immature Grans (Abs) 0.05 [place] Immature granulocytes (Bld) [#/Vol] 0.5 % [place] Interpretation and review of laboratory results Abnormal [place] Lymphocytes (Bld) [#/Vol] 1.4 10*3/uL [place] Lymphocytes/100 WBC (Bld) 14.7 % [place] MCH (RBC) [Entitic mass] 29.5 pg 26 - 33 pg [place] MCHC (RBC) [Mass/Vol] 29.4 g/dL [place] MCV (RBC) [Entitic vol] 100.3 fL High 81 - 99 fL [place], [place] Monocytes (Bld) [#/Vol] 0.9 10*3/uL [place] Monocytes/100 WBC (Bld) 9.6 % [place] Nucleated RBC/100 WBC (Bld) [Ratio] 0 % /100 wbc [place] Comment on above: Performed at [facility] [address] [place] [address] Platelet mean volume (Bld) [Entitic vol] 9.5 fL 9.4 - 12.4 fL [place] Platelets (Bld) [#/Vol] 445 10*3/uL [place] RBC (Bld) [#/Vol] 3.02 10*6/uL [place] RDW-SD 57.2 fL High 35 - 45 fL [place] Segmented neutrophils/100 WBC (Bld) 74.3 % [place] Segs Absolute 7.2 [place] WBC (Bld) [#/Vol] 9.7 10*3/uL [facility] [place] CBC WITH DIFFERENTIALon 04-27 ABS IMMATURE GRANS (IG) 0.05 thou/mm3 Normal 0.00-0.07 [facility] Comment on above: Performed By: #### C BCWD, BMP, ANION, EGFR1 #### [facility] [address] [place] [address] ABS NEUTROPHILS 7.2 thou/mm3 Normal 1.8-7.7 [facility] Comment on above: Performed By: #### C BCWD, BMP, ANION, EGFR1 #### [facility] [address] [place] [address] Basophils (Bld) [#/Vol] 0.0 thou/mm3 Normal 0.0-0.1 [facility] Comment on above: Performed By: #### C BCWD, BMP, ANION, EGFR1 #### [facility] [address] [place] [address] Basophils/100 WBC (Bld) 0.2 % Normal [facility] Comment on above: Performed By: #### C BCWD, BMP, ANION, EGFR1 #### [facility] [address] [place] [address] Eosinophils (Bld) [#/Vol] 0.1 thou/mm3 Normal 0.0-0.4 [facility] Comment on above: Performed By: #### C BCWD, BMP, ANION, EGFR1 #### [facility] [address] [place] [address] Eosinophils/100 WBC (Bld) 0.7 % Normal [facility] Comment on above: Performed By: #### C BCWD, BMP, ANION, EGFR1 #### [facility] [address] [place] [address] Erythrocyte distribution width (RBC) [Ratio] 15.5 % High 11.5-14.5 [facility] Comment on above: Performed By: #### C BCWD, BMP, ANION, EGFR1 #### [facility] [address] [place] [address] Hematocrit (Bld) [Volume fraction] 30.3 % Low 37.0-47.0 [facility] Comment on above: Performed By: #### C BCWD, BMP, ANION, EGFR1 #### [address] [address] Hemoglobin (Bld) [Mass/Vol] 8.9 gm/dl Low 12.0-16.0 [facility] Comment on above: Performed By: #### C BCWD, BMP, ANION, EGFR1 #### [address] [address] IMMATURE GRANS (IG) 0.5 % Normal [facility] Comment on above: Performed By: #### C BCWD, BMP, ANION, EGFR1 #### [address] [address] Lymphocytes (Bld) [#/Vol] 1.4 thou/mm3 Normal 1.0-4.8 [facility] Comment on above: Performed By: #### C BCWD, BMP, ANION, EGFR1 #### [address] [address] Lymphocytes/100 WBC (Bld) 14.7 % Normal [facility] Comment on above: Performed By: #### C BCWD, BMP, ANION, EGFR1 #### [address] [address] MCH (RBC) [Entitic mass] 29.5 pg Normal 26.0-33.0 [facility] Comment on above: Performed By: #### C BCWD, BMP, ANION, EGFR1 #### [facility] [address] [address] MCHC (RBC) [Mass/Vol] 29.4 gm/dl Low 32.2-35.5 [facility] Comment on above: Performed By: #### C BCWD, BMP, ANION, EGFR1 #### [address] [address] MCV (RBC) [Entitic vol] 100.3 fL High 81.0-99.0 [facility] Comment on above: Performed By: #### C BCWD, BMP, ANION, EGFR1 #### [address] [address] Monocytes (Bld) [#/Vol] 0.9 thou/mm3 Normal 0.4-1.3 [facility] Comment on above: Performed By: #### C BCWD, BMP, ANION, EGFR1 #### [facility] [address] [address] Monocytes/100 WBC (Bld) 9.6 % Normal [facility] Comment on above: Performed By: #### C BCWD, BMP, ANION, EGFR1 #### [facility] [address] [place] [address] Neutrophils/100 WBC (Bld) 74.3 % Normal [facility] Comment on above: Performed By: #### C BCWD, BMP, ANION, EGFR1 #### [address] [address] Nucleated RBC/100 WBC (Bld) [Ratio] 0 /100 wbc Normal [facility] Comment on above: Performed By: #### C BCWD, BMP, ANION, EGFR1 #### [facility] [address] [address] Platelet mean volume (Bld) [Entitic vol] 9.5 fL Normal 9.4-12.4 [facility] Comment on above: Performed By: #### C BCWD, BMP, ANION, EGFR1 #### [address] [address] Platelets (Bld) [#/Vol] 445 thou/mm3 High 130-400 [facility] Comment on above: Performed By: #### C BCWD, BMP, ANION, EGFR1 #### [employer] [address] [place] [address] RBC (Bld) [#/Vol] 3.02 mill/mm3 Low 4.20-5.40 [facility] Comment on above: Performed By: #### C BCWD, BMP, ANION, EGFR1 #### [employer] [address] [place] [address] RDW-SD 57.2 fL High 35.0-45.0 [facility] Comment on above: Performed By: #### C BCWD, BMP, ANION, EGFR1 #### [facility] [address] [place] [address] WBC (Bld) [#/Vol] 9.7 thou/mm3 Normal 4.8-10.8 [facility] Comment on above: Performed By: #### C BCWD, BMP, ANION, EGFR1 #### [facility] [employer] [employer] [facility] [address] [place] [address] GFR, ESTIMATEDon 05-11-2020 GFR/1.73 sq M.predicted MDRD (S/P/Bld) [Vol rate/Area] 47 ml/min/1.73m2 Abnormal [facility] Comment on above: Result Comment: Stag e [...] #### C BCWD, BMP, ANION, EGFR1 #### [employer] [address] [place] [id number] Glomerular Filtration Rate, Estimatedon 05-11-2020 Est, Glom Filt Rate 47 Abnormal ml/min/1 .73m 2 [place], [place] Comment on above: Stage Description GF [...] Vol. 139 (2) pg 137-147. Performed at [facility] [address] [place] [address] Otheron 05-11-2020 Interpretation and review of laboratory results Abnormal [place], [place] AER/ANAEROBIC CULTUREon 04-27 AER/ANAEROBIC CULTURE MICROBIOLOGY [facility], [address] [place] [address], [place], [address] PATIENT: JESÚS NOLAN LOCATION: [id number] -[id number] -A : 1935 AGE: 84 SEX: F ADM: 05/10/20 Att. Physician: CHELE LAGOS Order Id: [id number] Req. Physician: CHELE LAGOS Source: tissue Site: [...] 8 h 5-7 >=100 Trimethoprim/Vargas <=20 S [id number]/800mgSMX q 12h 1-2TMP/[id number]/ 97SM IV 160mgTMP/800mgSMX q 8 h9TMP/105 SMX [...] 8 h 5-7 >=100 Trimethoprim/Vargas <=20 S [id number]/800mgSMX q 12h 1-2TMP/[id number]/ 97SM IV 160mgTMP/800mgSMX q 8 h9TMP/105 SMX [...] liver disease consult PDR or pharmacist. Normal [facility] COVID-19on 05-10-2020 COVID-19 BY RT-PCR NOT DETECTED Normal NOT DETECT [facility] Comment on above: Result Comment: This [...] sooner. METHODOLOGY: RT-PCR Performed By: #### C BCWD, BMP, ANION, EGFR1 #### [facility] [place] [address] SARS-CoV-2, PCR NOT DETECTED NOT DETECT [facility], [place] Comment on above: This test has been [...] or revoked sooner. METHODOLOGY: RT-PCR Performed at [facility] [address] [place] [address] TYPE AND SCREENon 05-10-[address] [facility] [place], [place] Rh Factor Positive [facility] [place] TYPE AND SCREEN CAPTUREon ABO CAPTURE A Normal [facility] Comment on above: Performed By: #### C BCWD, BMP, ANION, EGFR1 #### [facility] [address] [place] [address] INDIRECT AUTUMN CAPTURE Negative Normal S [facility] Comment on above: Performed By: #### C BCWD, BMP, ANION, EGFR1 #### [facility] [address] [place] [address] RH CAPTURE (2 D CLONES) Positive Normal [facility] Comment on above: Performed By: #### C BCWD, BMP, ANION, EGFR1 #### [facility] [address] [place] [address] XR HIP LEFT (2-3 VIEWS)on XR HIP [...] Benson Edwards MD 05/10/20 Final result Normal [facility] [place], [facility] Incoming Radiant Results From [employer]/Recorded Futures - 05/10/2020 3:32 PM EDT PROCEDURE: XR [...] Dr Benson Edwards on 05/10/2020 3:30 PM [place] PROCEDURE: XR HIP LE FT (2-3 [...] of the arthroplasty likely related to surgery. [place] Status post left tot al hip arthroplasty. This report has been created using voice recognition software. It may contain minor errors which are inherent in voice recognition technology. Final report electronically signed by Dr Benson Edwards on 05/10/2020 3:30 PM [place] Basic Metabolic Panelon 08- Anion gap [Moles/Vol] 10 mmol/L 9 - 17 mmol/L [place] Bun/Cre Ratio 20 [place] Calcium [Mass/Vol] 8.9 mg/dL 8.6 - 10. 4 mg/dL [place] Chloride [Moles/Vol] 105 mmol/L 98 - 10 7 mmol/L [place] CO2 [Moles/Vol] 27 mmol/L 20 - 31 mmol/L [place] Creatinine [Mass/Vol] 1.12 mg/dL High 0.5 - 0.9 mg/dL [place] GFR 56 mL/min Low >60 [place] GFR Non- 47 mL/min Low >60 [place] Glucose [Mass/Vol] 110 mg/dL High 70 - 99 mg/dL [place] Interpretation and review of laboratory results Abnormal [place] Potassium [Moles/Vol] 3.8 mmol/L 3.7 - 5.3 mmol/L [place] Sodium [Moles/Vol] 142 mmol/L 135 - 144 mmol/L [place] Urea nitrogen [Mass/Vol] 22 mg/dL 8 - 23 mg/dL [place] CBCon 05-09-2020 Erythrocyte distribution width (RBC) [Ratio] 15.5 % High 11.8 - 14.4 % [place] Hematocrit (Bld) [Volume fraction] 34.3 % Low 36.3 - 47.1 % [place] Hemoglobin (Bld) [Mass/Vol] 10.2 g/dL Low 11.9 - 15.1 g/dL [place] Interpretation and review of laboratory results Abnormal [place] MCH (RBC) [Entitic mass] 29.4 pg 25.2 - 33.5 pg [place] MCHC (RBC) [Mass/Vol] 29.7 g/dL 28.4 - 34.8 g/dL [place] MCV (RBC) [Entitic vol] 98.8 fL 82.6 - 102.9 fL [place] Platelet mean volume (Bld) [Entitic vol] 9.4 fL 8.1 - 13.5 fL [place] Platelets (Bld) [#/Vol] 512 10*3/uL [place] RBC (Bld) [#/Vol] 3.47 10*6/uL Low 3.95 - 5.1 1 m/uL [place] WBC (Bld) [#/Vol] 0.0 10*3/uL 0.0 per 10 0 WBC [place] WBC (Bld) [#/Vol] 8.6 10*3/uL [place] Metabolic Panelon 05-09-2020 GFR/1.73 sq M predicted among non-blacks MDRD (S/P/Bld) [Vol rate/Area] [place] Comment on above: Stage 1: Some [...] body mass. Additional eGFR calculator available at: http://www.[employer]/multiple_crcl_2012.htm Microscopic Urinalysison Amorphous, UA NOT REPORTED None [place] Bacteria, UA 2+ Abnormal None [place] Casts UA NOT REPORTED /LPF [place] Crystals, UA NOT REPORTED None /HPF [place] Epithelial Cells UA 0 TO 2 [place] Interpretation and review of laboratory results Abnormal [place] Mucus, UA NOT REPORTED None [place] Other Observations UA NOT REPORTED NOT REQ. [place] RBC (U) [#/Vol] 5 TO 10 [place] Renal Epithelial, UA 0 TO 2 0 /HPF [place] Trichomonas, UA NOT REPORTED None [place] WBC, UA 50 TO 100 [place] Yeast, UA NOT REPORTED None [place] Urinalysison 05-08-2020 Bilirubin Urine Negative NEGATIVE [place] Color, UA YELLOW YELLOW [place] Glucose, Ur Negative NEGATIVE [place] Interpretation and review of laboratory results Abnormal [place] Ketones Ql (U) Negative NEGATIVE [place] Leukocyte esterase Test strip Ql (U) MODERATE Abnormal NEGATIVE [place] Nitrite, Urine Negative NEGATIVE [place] pH, UA 6.5 [place] Protein (U) [Mass/Vol] TRACE Abnormal NEGATIVE [place] Specific [place], UA 1.020 [place] Turbidity UA SLIGHTLY CLOUDY Abnormal CLEAR [place] Urinalysis Comments NOT REPORTED [place] Urine Hgb 2+ Abnormal NEGATIVE [place] Urobilinogen, Urine Normal Normal [place] Basic Metabolic Panelon Anion gap [Moles/Vol] 17 mmol/L 9 - 17 mmol/L [place] Bun/Cre Ratio 20 [place] Calcium [Mass/Vol] 9.2 mg/dL 8.6 - 10. 4 mg/dL [place] Chloride [Moles/Vol] 97 mmol/L Low 98 - 10 7 mmol/L [place] CO2 [Moles/Vol] 23 mmol/L 20 - 31 mmol/L [place] Creatinine [Mass/Vol] 1.29 mg/dL High 0.5 - 0.9 mg/dL [place] GFR 48 mL/min Low >60 [place] GFR Non- 40 mL/min Low >60 [place] Glucose [Mass/Vol] 209 mg/dL High 70 - 99 mg/dL [place] Interpretation and review of laboratory results Abnormal [place] Potassium [Moles/Vol] 3.7 mmol/L 3.7 - 5.3 mmol/L [place] Sodium [Moles/Vol] 137 mmol/L 135 - 144 mmol/L [place] Urea nitrogen [Mass/Vol] 26 mg/dL High 8 - 23 mg/dL [place] CBC Auto Differentialon Basophils (Bld) [#/Vol] 10*3/uL [place] Basophils/100 WBC (Bld) 0 % 0 - 2 % [place] Differential Type NOT REPORTED [place] Eosinophils (Bld) [#/Vol] 0.17 10*3/uL [place] Eosinophils/100 WBC (Bld) 2 % 1 - 4 % [place] Erythrocyte distribution width (RBC) [Ratio] 15.3 % High 11.8 - 14.4 % [place] Hematocrit (Bld) [Volume fraction] 36.5 % 36.3 - 47.1 % [place] Hemoglobin (Bld) [Mass/Vol] 11.2 g/dL Low 11.9 - 15.1 g/dL [place] Immature granulocytes (Bld) [#/Vol] 1 % High 0 [place] Immature granulocytes (Bld) [#/Vol] 0.05 10*3/uL [place] Interpretation and review of laboratory results Abnormal [place] Lymphocytes (Bld) [#/Vol] 2.30 10*3/uL [place] Lymphocytes/100 WBC (Bld) 21 % Low 24 - 43 % [place] MCH (RBC) [Entitic mass] 30.3 pg 25.2 - 33.5 pg [place] MCHC (RBC) [Mass/Vol] 30.7 g/dL 28.4 - 34.8 g/dL [place] MCV (RBC) [Entitic vol] 98.6 fL 82.6 - 102.9 fL [place] Monocytes (Bld) [#/Vol] 1.01 10*3/uL [place] Monocytes/100 WBC (Bld) 9 % 3 - 12 % [place] Platelet mean volume (Bld) [Entitic vol] 9.7 fL 8.1 - 13.5 fL [place] Platelets (Bld) [#/Vol] NOT REPORTED [place] Platelets (Bld) [#/Vol] 481 10*3/uL [place] RBC (Bld) [#/Vol] 3.70 10*6/uL Low 3.95 - 5.1 1 m/uL [place] RBC morphology finding Nom (Bld) NOT REPORTED [place] Segmented neutrophils/100 WBC (Bld) 67 % High 36 - 65 % [place] Segs Absolute 7.38 [place] WBC (Bld) [#/Vol] 10.9 10*3/uL [place] WBC (Bld) [#/Vol] 0.0 10*3/uL 0.0 per 10 0 WBC [place] WBC Morphology NOT REPORTED [place] Metabolic Panelon 05-03-2020 GFR/1.73 sq M predicted among non-blacks MDRD (S/P/Bld) [Vol rate/Area] [place] Comment on above: Stage 1: Some [...] body mass. Additional eGFR calculator available at: http://www.[employer]/multiple_crcl_2011.htm CBC Auto Differentialon 03-27 Basophils (Bld) [#/Vol] 0.00 10*3/uL [place] Basophils/100 WBC (Bld) 0 % 0 - 2 % [place] Differential Type NOT REPORTED [place] Eosinophils (Bld) [#/Vol] 0.00 10*3/uL [place] Eosinophils/100 WBC (Bld) 0 % Low 1 - 4 % [place] Erythrocyte distribution width (RBC) [Ratio] 15.9 % High 11.8 - 14.4 % [place] Hematocrit (Bld) [Volume fraction] 36.3 % 36.3 - 47.1 % [place] Hemoglobin (Bld) [Mass/Vol] 11.0 g/dL Low 11.9 - 15.1 g/dL [place] Immature granulocytes (Bld) [#/Vol] 4 % High 0 [place] Immature granulocytes (Bld) [#/Vol] 0.51 10*3/uL [place] Interpretation and review of laboratory results Abnormal [place] Lymphocytes (Bld) [#/Vol] 1.40 10*3/uL [place] Lymphocytes/100 WBC (Bld) 11 % Low 24 - 43 % [place] MCH (RBC) [Entitic mass] 30.1 pg 25.2 - 33.5 pg [place] MCHC (RBC) [Mass/Vol] 30.3 g/dL 28.4 - 34.8 g/dL [place] MCV (RBC) [Entitic vol] 99.5 fL 82.6 - 102.9 fL [place] Monocytes (Bld) [#/Vol] 0.76 10*3/uL [place] Monocytes/100 WBC (Bld) 6 % 3 - 12 % [place] Morphology [place] (Bld) [Interp] Normal [place] Platelet mean volume (Bld) [Entitic vol] 10.0 fL 8.1 - 13.5 fL [place] Platelets (Bld) [#/Vol] NOT REPORTED [place] Platelets (Bld) [#/Vol] 613 10*3/uL [place] RBC (Bld) [#/Vol] 3.65 10*6/uL Low 3.95 - 5.1 1 m/uL [place] RBC morphology finding Nom (Bld) NOT REPORTED [place] Segmented neutrophils/100 WBC (Bld) 79 % High 36 - 65 % [place] Segs Absolute 10.03 High [place] WBC (Bld) [#/Vol] 0.0 10*3/uL 0.0 per 10 0 WBC [place] WBC (Bld) [#/Vol] 12.7 10*3/uL [place] WBC Morphology NOT REPORTED [place] Comprehensive Metabolic Pane riddhi 04-10-2020 Albumin [Mass/Vol] 2.4 g/dL Low 3.5 - 5.2 g/dL [place] Albumin/Globulin [Mass ratio] 0.8 {ratio} Low [place] ALP [Catalytic activity/Vol] 136 U/L High 35 - 104 U/L [place] ALT [Catalytic activity/Vol] 29 U/L 5 - 33 U/L [place] Anion gap [Moles/Vol] 11 mmol/L 9 - 17 mmol/L [place] AST [Catalytic activity/Vol] 20 U/L <32 [place] Bilirubin Ql (U) 0.20 mg/dL Low 0.3 - 1.2 mg/dL [place] Bun/Cre Ratio 20 [place] Calcium [Mass/Vol] 8.2 mg/dL Low 8.6 - 10. 4 mg/dL [place] Chloride [Moles/Vol] 100 mmol/L 98 - 10 7 mmol/L [place] CO2 [Moles/Vol] 25 mmol/L 20 - 31 mmol/L [place] Creatinine [Mass/Vol] 1.11 mg/dL High 0.5 - 0.9 mg/dL [place] GFR 57 mL/min Low >60 [place] GFR Non- 47 mL/min Low >60 [place] Glucose [Mass/Vol] 135 mg/dL High 70 - 99 mg/dL [place] Interpretation and review of laboratory results Abnormal [place] Potassium [Moles/Vol] 3.6 mmol/L Low 3.7 - 5.3 mmol/L [place] Protein [Mass/Vol] 5.6 g/dL Low 6.4 - 8.3 g/dL [place] Sodium [Moles/Vol] 136 mmol/L 135 - 144 mmol/L [place] Urea nitrogen [Mass/Vol] 22 mg/dL 8 - 23 mg/dL [place] Metabolic Panelon 04-10-2020 GFR/1.73 sq M predicted among non-blacks MDRD (S/P/Bld) [Vol rate/Area] [place] Comment on above: Stage 1: Some [...] body mass. Additional eGFR calculator available at: http://www.[employer]/multiple_crcl_2012.htm Urinalysis with Microscopico n 04-10-2020 Amorphous, UA NOT REPORTED None [place] Bacteria, UA TRACE Abnormal None [place] Bilirubin Urine Negative NEGATIVE [place] Casts UA NOT REPORTED /LPF [place] Color, UA YELLOW YELLOW [place] Crystals, UA NOT REPORTED None /HPF [place] Epithelial Cells UA 10 TO 20 [place] Glucose, Ur Negative NEGATIVE [place] Interpretation and review of laboratory results Abnormal [place] Ketones Ql (U) Negative NEGATIVE [place] Leukocyte esterase Test strip Ql (U) Negative NEGATIVE [place] Mucus, UA NOT REPORTED None [place] Nitrite, Urine Negative NEGATIVE [place] Other Observations UA NOT REPORTED NOT REQ. [place] pH, UA 7.0 [place] Protein (U) [Mass/Vol] Negative NEGATIVE [place] RBC (U) [#/Vol] 0 TO 2 [place] Renal Epithelial, UA NOT REPORTED 0 /HPF [place] Specific [place], UA 1.015 [place] Trichomonas, UA NOT REPORTED None [place] Turbidity UA CLEAR CLEAR [place] Urinalysis Comments NOT REPORTED [place] Urine Hgb Negative NEGATIVE [place] Urobilinogen, Urine Normal Normal [place] WBC, UA 0 TO 2 [place] Yeast, UA NOT REPORTED None [place] CBC auto differentialon 03-27 Basophils (Bld) [#/Vol] 0.04 10*3/uL [place] Basophils/100 WBC (Bld) 0 % 0 - 2 % [place] Differential Type NOT REPORTED [place] Eosinophils (Bld) [#/Vol] 0.24 10*3/uL [place] Eosinophils/100 WBC (Bld) 2 % 1 - 4 % [place] Erythrocyte distribution width (RBC) [Ratio] 15.6 % High 11.8 - 14.4 % [place] Hematocrit (Bld) [Volume fraction] 29.2 % Low 36.3 - 47.1 % [place] Hemoglobin (Bld) [Mass/Vol] 8.8 g/dL Low 11.9 - 15.1 g/dL [place] Immature granulocytes (Bld) [#/Vol] 0.49 10*3/uL [place] Immature granulocytes (Bld) [#/Vol] 3 % High 0 [place] Interpretation and review of laboratory results Abnormal [place] Lymphocytes (Bld) [#/Vol] 1.99 10*3/uL [place] Lymphocytes/100 WBC (Bld) 13 % Low 24 - 43 % [place] MCH (RBC) [Entitic mass] 30.1 pg 25.2 - 33.5 pg [place] MCHC (RBC) [Mass/Vol] 30.1 g/dL 28.4 - 34.8 g/dL [place] MCV (RBC) [Entitic vol] 100.0 fL 82.6 - 102.9 fL [place] Monocytes (Bld) [#/Vol] 1.02 10*3/uL [place] Monocytes/100 WBC (Bld) 7 % 3 - 12 % [place] Platelet mean volume (Bld) [Entitic vol] 10.7 fL 8.1 - 13.5 fL [place] Platelets (Bld) [#/Vol] NOT REPORTED [place] Platelets (Bld) [#/Vol] 444 10*3/uL [place] RBC (Bld) [#/Vol] 2.92 10*6/uL Low 3.95 - 5.1 1 m/uL [place] RBC morphology finding Nom (Bld) NOT REPORTED [place] Segmented neutrophils/100 WBC (Bld) 75 % High 36 - 65 % [place] Segs Absolute 11.50 High [place] WBC (Bld) [#/Vol] 0.0 10*3/uL 0.0 per 10 0 WBC [place] WBC (Bld) [#/Vol] 15.3 10*3/uL [place] WBC Morphology NOT REPORTED [place] Comprehensive metabolic pane riddhi 04-06-2020 Albumin [Mass/Vol] 2.1 g/dL Low 3.5 - 5.2 g/dL [place] Albumin/Globulin [Mass ratio] 0.7 {ratio} Low [place] ALP [Catalytic activity/Vol] 139 U/L High 35 - 104 U/L [place] ALT [Catalytic activity/Vol] 67 U/L High 5 - 33 U/L [place] Anion gap [Moles/Vol] 11 mmol/L 9 - 17 mmol/L [place] AST [Catalytic activity/Vol] 61 U/L High <32 [place] Bilirubin Ql (U) 0.34 mg/dL 0.3 - 1.2 mg/dL [place] Bun/Cre Ratio 20 [place] Calcium [Mass/Vol] 8.2 mg/dL Low 8.6 - 10. 4 mg/dL [place] Chloride [Moles/Vol] 101 mmol/L 98 - 10 7 mmol/L [place] CO2 [Moles/Vol] 25 mmol/L 20 - 31 mmol/L [place] Creatinine [Mass/Vol] 1.12 mg/dL High 0.5 - 0.9 mg/dL [place] GFR 56 mL/min Low >60 [place] GFR Non- 47 mL/min Low >60 [place] Glucose [Mass/Vol] 149 mg/dL High 70 - 99 mg/dL [place] Interpretation and review of laboratory results Abnormal [place] Potassium [Moles/Vol] 3.5 mmol/L Low 3.7 - 5.3 mmol/L [place] Protein [Mass/Vol] 5.3 g/dL Low 6.4 - 8.3 g/dL [place] Sodium [Moles/Vol] 137 mmol/L 135 - 144 mmol/L [place] Urea nitrogen [Mass/Vol] 22 mg/dL 8 - 23 mg/dL [place] Metabolic Panelon 04-06-2020 GFR/1.73 sq M predicted among non-blacks MDRD (S/P/Bld) [Vol rate/Area] [place] Comment on above: Stage 1: Some [...] body mass. Additional eGFR calculator available at: http://www.[employer]/multiple_crcl_2012.htm CBC auto differentialon 03-27 Basophils (Bld) [#/Vol] 10*3/uL [place] Basophils/100 WBC (Bld) 0 % 0 - 2 % [place] Differential Type NOT REPORTED [place] Eosinophils (Bld) [#/Vol] 0.05 10*3/uL [place] Eosinophils/100 WBC (Bld) 0 % Low 1 - 4 % [place] Erythrocyte distribution width (RBC) [Ratio] 15.3 % High 11.8 - 14.4 % [place] Hematocrit (Bld) [Volume fraction] 32.0 % Low 36.3 - 47.1 % [place] Hemoglobin (Bld) [Mass/Vol] 10.0 g/dL Low 11.9 - 15.1 g/dL [place] Immature granulocytes (Bld) [#/Vol] 2 % High 0 [place] Immature granulocytes (Bld) [#/Vol] 0.40 10*3/uL [place] Interpretation and review of laboratory results Abnormal [place] Lymphocytes (Bld) [#/Vol] 1.67 10*3/uL [place] Lymphocytes/100 WBC (Bld) 9 % Low 24 - 43 % [place] MCH (RBC) [Entitic mass] 30.8 pg 25.2 - 33.5 pg [place] MCHC (RBC) [Mass/Vol] 31.3 g/dL 28.4 - 34.8 g/dL [place] MCV (RBC) [Entitic vol] 98.5 fL 82.6 - 102.9 fL [place] Monocytes (Bld) [#/Vol] 1.38 10*3/uL [place] Monocytes/100 WBC (Bld) 8 % 3 - 12 % [place] Platelet mean volume (Bld) [Entitic vol] 10.7 fL 8.1 - 13.5 fL [place] Platelets (Bld) [#/Vol] 497 10*3/uL [place] Platelets (Bld) [#/Vol] NOT REPORTED [place] RBC (Bld) [#/Vol] 3.25 10*6/uL Low 3.95 - 5.1 1 m/uL [place] RBC morphology finding Nom (Bld) NOT REPORTED [place] Segmented neutrophils/100 WBC (Bld) 81 % High 36 - 65 % [place] Segs Absolute 14.36 High [place] WBC (Bld) [#/Vol] 17.9 10*3/uL [place] WBC (Bld) [#/Vol] 0.0 10*3/uL 0.0 per 10 0 WBC [place] WBC Morphology NOT REPORTED [place] COVID-19on 04-05-2020 SARS-CoV-2 [place] SARS-CoV-2, PCR [place] SARS-CoV-2, Rapid Not Detected Not Detected [place] Comment on above: Rapid NAAT: The [...] management decisions. Fact sheet for Healthcare Providers: https://www.fda.gov/media/587455/download Fact sheet for Patients: https://www.fda.gov/media/985613/download Methodology: Isothermal Nucleic Acid Amplification Source .NASOPHARYNGEAL SWAB [place] Comprehensive metabolic pane riddhi 04-05-2020 Albumin [Mass/Vol] 2.5 g/dL Low 3.5 - 5.2 g/dL [place] Albumin/Globulin [Mass ratio] 0.7 {ratio} Low [place] ALP [Catalytic activity/Vol] 137 U/L High 35 - 104 U/L [place] ALT [Catalytic activity/Vol] 76 U/L High 5 - 33 U/L [place] Anion gap [Moles/Vol] 16 mmol/L 9 - 17 mmol/L [place] AST [Catalytic activity/Vol] 73 U/L High <32 [place] Bilirubin Ql (U) 0.41 mg/dL 0.3 - 1.2 mg/dL [place] Bun/Cre Ratio 21 [place] Calcium [Mass/Vol] 8.4 mg/dL Low 8.6 - 10. 4 mg/dL [place] Chloride [Moles/Vol] 102 mmol/L 98 - 10 7 mmol/L [place] CO2 [Moles/Vol] 24 mmol/L 20 - 31 mmol/L [place] Creatinine [Mass/Vol] 1.16 mg/dL High 0.5 - 0.9 mg/dL [place] GFR 54 mL/min Low >60 [place] GFR Non- 45 mL/min Low >60 [place] Glucose [Mass/Vol] 128 mg/dL High 70 - 99 mg/dL [place] Interpretation and review of laboratory results Abnormal [place] Potassium [Moles/Vol] 3.3 mmol/L Low 3.7 - 5.3 mmol/L [place] Protein [Mass/Vol] 6.3 g/dL Low 6.4 - 8.3 g/dL [place] Sodium [Moles/Vol] 142 mmol/L 135 - 144 mmol/L [place] Urea nitrogen [Mass/Vol] 24 mg/dL High 8 - 23 mg/dL [place] Metabolic Panelon 04-05-2020 GFR/1.73 sq M predicted among non-blacks MDRD (S/P/Bld) [Vol rate/Area] [place] Comment on above: Stage 1: Some [...] body mass. Additional eGFR calculator available at: http://www.[employer]/multiple_crcl_2012.htm Basic Metabolic Panel w/ Ref tosha to MGon 04-03-2020 Anion gap [Moles/Vol] 18 mmol/L High 9 - 17 mmol/L [place] Bun/Cre Ratio 26 [place] Calcium [Mass/Vol] 9.0 mg/dL 8.6 - 10. 4 mg/dL [place] Chloride [Moles/Vol] 96 mmol/L Low 98 - 10 7 mmol/L [place] CO2 [Moles/Vol] 26 mmol/L 20 - 31 mmol/L [place] Creatinine [Mass/Vol] 1.17 mg/dL High 0.5 - 0.9 mg/dL [place] GFR 54 mL/min Low >60 [place] GFR Non- 44 mL/min Low >60 [place] Glucose [Mass/Vol] 157 mg/dL High 70 - 99 mg/dL [place] Interpretation and review of laboratory results Abnormal [place] Potassium [Moles/Vol] 3.5 mmol/L Low 3.7 - 5.3 mmol/L [place] Sodium [Moles/Vol] 140 mmol/L 135 - 144 mmol/L [place] Urea nitrogen [Mass/Vol] 30 mg/dL High 8 - 23 mg/dL [place] CBCon 04-03-2020 Erythrocyte distribution width (RBC) [Ratio] 14.9 % High 11.8 - 14.4 % [place] Hematocrit (Bld) [Volume fraction] 34.0 % Low 36.3 - 47.1 % [place] Hemoglobin (Bld) [Mass/Vol] 10.8 g/dL Low 11.9 - 15.1 g/dL [place] Interpretation and review of laboratory results Abnormal [place] MCH (RBC) [Entitic mass] 30.9 pg 25.2 - 33.5 pg [place] MCHC (RBC) [Mass/Vol] 31.8 g/dL 28.4 - 34.8 g/dL [place] MCV (RBC) [Entitic vol] 97.4 fL 82.6 - 102.9 fL [place] Platelet mean volume (Bld) [Entitic vol] 10.6 fL 8.1 - 13.5 fL [place] Platelets (Bld) [#/Vol] 455 10*3/uL [place] RBC (Bld) [#/Vol] 3.49 10*6/uL Low 3.95 - 5.1 1 m/uL [place] WBC (Bld) [#/Vol] 17.6 10*3/uL [place] WBC (Bld) [#/Vol] 0.0 10*3/uL 0.0 per 10 0 WBC [place] EKG 12 [place] 04-03-2020 Atrial Rate 78 BPM [place] P Girdler 90 degrees [place] P-R Interval 174 ms [place] Q-T Interval 426 ms [place] QRS Duration 114 ms [place] QTc Calculation (Bazett) 485 ms [place] R Girdler -27 degrees [facility], [place] T Girdler 61 degrees [place] Urea nitrogen [Mass/Vol] Sinus rhythm with Premature atrial complexes Incomplete left bundle branch block Left ventricular hypertrophy with repolarization abnormality Abnormal ECG When compared with ECG of 02-APR-2020 14:43, Premature atrial complexes are now Present Minimal criteria for Septal infarct are no longer Present Confirmed by Sadie GRACE MD ([id number]) on 04/03/2020 7:17:15 AM [place], [place] Ventricular Rate 78 BPM [place], [place], [facility] Incoming E kg Results From [employer] [facility] - 04/03/2020 7:17 AM EDT Sinus rhythm with Premature atrial complexes Incomplete left bundle branch block Left ventricular hypertrophy with repolarization abnormality Abnormal ECG When compared with ECG of 02-APR-2020 14:43, Premature atrial complexes are now Present Minimal criteria for Septal infarct are no longer Present Confirmed by Sadie GRACE MD ([id number]) on 04/03/2020 7:17:15 AM [place] Lactic acid, plasmaon 2019 Lactate [Moles/Vol] 1.9 mmol/L 0.5 - 2. 2 mmol/L [place] Lactic Acid, Whole Blood NOT REPORTED 0.7 - 2.1 mmol/L [place] Magnesiumon 04-03-2020 Magnesium [Mass/Vol] 1.9 mg/dL 1.6 - 2 .6 mg/dL [place] Metabolic Panelon 04-03-2020 GFR/1.73 sq M predicted among non-blacks MDRD (S/P/Bld) [Vol rate/Area] [place], [place] Comment on above: Stage 1: Some [...] body mass. Additional eGFR calculator available at: http://www.[employer]/multiple_crcl_2012.htm Basic Metabolic Panelon Anion gap [Moles/Vol] 16 mmol/L 9 - 17 mmol/L [place] Bun/Cre Ratio 26 High [place] Calcium [Mass/Vol] 8.9 mg/dL 8.6 - 10. 4 mg/dL [place] Chloride [Moles/Vol] 92 mmol/L Low 98 - 10 7 mmol/L [place] CO2 [Moles/Vol] 29 mmol/L 20 - 31 mmol/L [place] Creatinine [Mass/Vol] 1.41 mg/dL High 0.5 - 0.9 mg/dL [place] GFR 43 mL/min Low >60 [place] GFR Non- 36 mL/min Low >60 [place] Glucose [Mass/Vol] 200 mg/dL High 70 - 99 mg/dL [place] Interpretation and review of laboratory results Abnormal [place] Potassium [Moles/Vol] 2.9 mmol/L Critically low 3.7 - 5.3 mmol/L [place] Sodium [Moles/Vol] 137 mmol/L 135 - 144 mmol/L [place] Urea nitrogen [Mass/Vol] 37 mg/dL High 8 - 23 mg/dL [place] Basic Metabolic Panel w/ Ref tosha to MGon 04-02-2020 Anion gap [Moles/Vol] 15 mmol/L 9 - 17 mmol/L [place] Bun/Cre Ratio 26 [place] Calcium [Mass/Vol] 8.6 mg/dL 8.6 - 10. 4 mg/dL [place] Chloride [Moles/Vol] 96 mmol/L Low 98 - 10 7 mmol/L [place] CO2 [Moles/Vol] 28 mmol/L 20 - 31 mmol/L [place] Creatinine [Mass/Vol] 1.33 mg/dL High 0.5 - 0.9 mg/dL [place] GFR 46 mL/min Low >60 [place] GFR Non- 38 mL/min Low >60 [place] Glucose [Mass/Vol] 149 mg/dL High 70 - 99 mg/dL [place] Interpretation and review of laboratory results Abnormal [place] Potassium [Moles/Vol] 3.4 mmol/L Low 3.7 - 5.3 mmol/L [place] Sodium [Moles/Vol] 139 mmol/L 135 - 144 mmol/L [place] Urea nitrogen [Mass/Vol] 35 mg/dL High 8 - 23 mg/dL [place] CBC Auto Differentialon Basophils (Bld) [#/Vol] 10*3/uL [place] Basophils/100 WBC (Bld) 0 % 0 - 2 % [place] Differential Type NOT REPORTED [place] Eosinophils (Bld) [#/Vol] 10*3/uL [place] Eosinophils/100 WBC (Bld) 0 % Low 1 - 4 % [place] Erythrocyte distribution width (RBC) [Ratio] 14.7 % High 11.8 - 14.4 % [place] Hematocrit (Bld) [Volume fraction] 32.6 % Low 36.3 - 47.1 % [place] Hemoglobin (Bld) [Mass/Vol] 10.5 g/dL Low 11.9 - 15.1 g/dL [place] Immature granulocytes (Bld) [#/Vol] 1 % High 0 [place] Immature granulocytes (Bld) [#/Vol] 0.15 10*3/uL [place] Interpretation and review of laboratory results Abnormal [place] Lymphocytes (Bld) [#/Vol] 1.25 10*3/uL [place] Lymphocytes/100 WBC (Bld) 7 % Low 24 - 43 % [place] MCH (RBC) [Entitic mass] 30.7 pg 25.2 - 33.5 pg [place] MCHC (RBC) [Mass/Vol] 32.2 g/dL 28.4 - 34.8 g/dL [place] MCV (RBC) [Entitic vol] 95.3 fL 82.6 - 102.9 fL [place] Monocytes (Bld) [#/Vol] 1.50 10*3/uL [place] Monocytes/100 WBC (Bld) 9 % 3 - 12 % [place] Platelet mean volume (Bld) [Entitic vol] 10.8 fL 8.1 - 13.5 fL [place] Platelets (Bld) [#/Vol] NOT REPORTED [place] Platelets (Bld) [#/Vol] 401 10*3/uL [place] RBC (Bld) [#/Vol] 3.42 10*6/uL Low 3.95 - 5.1 1 m/uL [place] RBC morphology finding Nom (Bld) NOT REPORTED [place] Segmented neutrophils/100 WBC (Bld) 83 % High 36 - 65 % [place] Segs Absolute 14.35 [place] WBC (Bld) [#/Vol] 17.3 10*3/uL [place] WBC (Bld) [#/Vol] 0.0 10*3/uL 0.0 per 10 0 WBC [place] WBC Morphology NOT REPORTED [place] EKG 12 Leadon 04-02-2020 Atrial Rate 73 BPM [facility], [place] P Girdler 90 degrees [facility] P-R Interval 192 ms [facility] Q-T Interval 430 ms [place] QRS Duration 108 ms [place] QTc Calculation (Bazett) 473 ms [place] R Girdler -33 degrees [facility] T Girdler 50 degrees [facility] Ventricular Rate 73 BPM [place] Normal sinus rhythm Left axis deviation Pulmonary disease pattern Left ventricular hypertrophy with repolarization abnormality Cannot rule out Septal infarct (cited on or before 30-JUN-2001) Abnormal ECG When compared with ECG of 11-NOV-2011 11:12, QRS duration has increased Questionable change in initial forces of Anterior leads Confirmed by Sadie GRACE MD ([id number]) on 04/02/2020 4:19:24 PM [place], [place] Dam[place], Mhpn Incoming E kg Results From [facility] - 04/02/2020 4:19 PM EDT Normal sinus rhythm Left axis deviation Pulmonary disease pattern Left ventricular hypertrophy with repolarization abnormality Cannot rule out Septal infarct (cited on or before 30-JUN-2001) Abnormal ECG When compared with ECG of 11-NOV-2011 11:12, QRS duration has increased Questionable change in initial forces of Anterior leads Confirmed by Sadie GRACE MD ([id number]) on 04/02/2020 4:19:24 PM [place] Magnesiumon 04-02-2020 Magnesium [Mass/Vol] 2.0 mg/dL 1.6 - 2 .6 mg/dL [place] Metabolic Panelon 04-02-2020 GFR/1.73 sq M predicted among non-blacks MDRD (S/P/Bld) [Vol rate/Area] [place] Comment on above: Average GFR for 70 o r more years old: 75 mL/min/1.73sq m Chronic Kidney Disease: <60 mL/min/1.73sq m Kidney failure: <15 mL/min/1.73sq m eGFR calculated using average adult body mass. Additional eGFR calculator available at: http://www.[employer]/multiple_crcl_2012.htm Stage 1: Some kidney damage normal GFR Stage 2: Mild kidney damage GFR 60-89 Stage 3: Moderate kidney damage GFR 30-59 Stage 4: Severe kidney damage GFR 15-29 Stage 5: Severe kidney damage GFR <15 ESRD - chronic treatment by dialysis or transplant GFR/1.73 sq M predicted among non-blacks MDRD (S/P/Bld) [Vol rate/Area] [place] Comment on above: Average GFR for 70 o r more years old: 75 mL/min/1.73sq m Chronic Kidney Disease: <60 mL/min/1.73sq m Kidney failure: <15 mL/min/1.73sq m eGFR calculated using average adult body mass. Additional eGFR calculator available at: http://www.[employer]/[facility]_crcl_2011.htm Stage 1: Some kidney damage normal GFR Stage 2: Mild kidney damage GFR 60-89 Stage 3: Moderate kidney damage GFR 30-59 Stage 4: Severe kidney damage GFR 15-29 Stage 5: Severe kidney damage GFR <15 ESRD - chronic treatment by dialysis or transplant Troponinon 04-02-2020 Interpretation and review of laboratory results Abnormal [place] Troponin I.cardiac [Mass/Vol] NOT REPORTED [place] Troponin T.cardiac [Mass/Vol] NOT REPORTED <0.03 ng/mL [place] Troponin, High Sensitivity 44 ng/L High 0 - 14 ng/L [place] Comment on above: High Sensitivity Troponin values cannot be compared with other Troponin methodologies. Patients with high levels of Biotin oral intake (i.e >5mg/day) may have falsely decreased Troponin levels. Samples collected within 8 hours of biotin intake may require additional information for diagnosis. Interpretation and review of laboratory results Abnormal [place] Troponin I.cardiac [Mass/Vol] NOT REPORTED [place] Troponin T.cardiac [Mass/Vol] NOT REPORTED <0.03 ng/mL [place] Troponin, High Sensitivity 47 ng/L High 0 - 14 ng/L [place] Comment on above: High Sensitivity Troponin values cannot be compared with other Troponin methodologies. Patients with high levels of Biotin oral intake (i.e >5mg/day) may have falsely decreased Troponin levels. Samples collected within 8 hours of biotin intake may require additional information for diagnosis. Urinalysis with Microscopico n 04-02-2020 Amorphous, UA NOT REPORTED None [place] Bacteria, UA 4+ Abnormal None [place] Bilirubin Urine Negative NEGATIVE [place] Casts UA NOT REPORTED /LPF [place] Color, UA YELLOW YELLOW [place] Crystals, UA NOT REPORTED None /HPF [place] Epithelial Cells UA 0 TO 2 [place] Glucose, Ur Negative NEGATIVE [place] Interpretation and review of laboratory results Abnormal [place] Ketones Ql (U) Negative NEGATIVE [place] Leukocyte esterase Test strip Ql (U) Negative NEGATIVE [place] Mucus, UA NOT REPORTED None [place] Nitrite, Urine Positive Abnormal NEGATIVE [place] Other Observations UA NOT REPORTED NOT REQ. [place] pH, UA 6.0 [place] Protein (U) [Mass/Vol] 1+ Abnormal NEGATIVE [place] RBC (U) [#/Vol] 0 TO 2 [place] Renal Epithelial, UA NOT REPORTED 0 /HPF [place] Specific [place], UA 1.025 High [place] Trichomonas, UA NOT REPORTED None [place] Turbidity UA SLIGHTLY CLOUDY Abnormal CLEAR [place] Urinalysis Comments NOT REPORTED [place] Urine Hgb 1+ Abnormal NEGATIVE [place] Urobilinogen, Urine Normal Normal [place] WBC, UA 2 TO 5 [place] Yeast, UA NOT REPORTED None [place] - [place] XR CHEST 1 VWon 04-02-2020 No acute cardiopulmonary disease. [place], [place]hpn Incoming Radiant Results From [email or web address] - 04/02/2020 8:01 PM EDT EXAMINATION: ONE [...] osseous abnormality. IMPRESSION: No acute cardiopulmonary disease. [place] EXAMINATION: ONE XRA Y VIEW OF [...] edema. No pneumothorax. No acute osseous abnormality. [place] CBC Auto Differentialon 02-26 Basophils (Bld) [#/Vol] 10*3/uL [place] Basophils/100 WBC (Bld) 0 % 0 - 2 % [place] Differential Type NOT REPORTED [place] Eosinophils (Bld) [#/Vol] 0.07 10*3/uL [place] Eosinophils/100 WBC (Bld) 1 % 1 - 4 % [place] Erythrocyte distribution width (RBC) [Ratio] 14.1 % 11.8 - 14.4 % [place] Hematocrit (Bld) [Volume fraction] 35.7 % Low 36.3 - 47.1 % [place] Hemoglobin (Bld) [Mass/Vol] 11.1 g/dL Low 11.9 - 15.1 g/dL [place] Immature granulocytes (Bld) [#/Vol] 0.04 10*3/uL [place] Immature granulocytes (Bld) [#/Vol] 0 % 0 [place] Interpretation and review of laboratory results Abnormal [place] Lymphocytes (Bld) [#/Vol] 1.62 10*3/uL [place] Lymphocytes/100 WBC (Bld) 14 % Low 24 - 43 % [place] MCH (RBC) [Entitic mass] 31.5 pg 25.2 - 33.5 pg [place] MCHC (RBC) [Mass/Vol] 31.1 g/dL 28.4 - 34.8 g/dL [place] MCV (RBC) [Entitic vol] 101.4 fL 82.6 - 102.9 fL [place] Monocytes (Bld) [#/Vol] 1.43 10*3/uL [place] Monocytes/100 WBC (Bld) 12 % 3 - 12 % [place] Platelet mean volume (Bld) [Entitic vol] 10.3 fL 8.1 - 13.5 fL [place] Platelets (Bld) [#/Vol] 245 10*3/uL [place] Platelets (Bld) [#/Vol] NOT REPORTED [place] RBC (Bld) [#/Vol] 3.52 10*6/uL Low 3.95 - 5.1 1 m/uL [place] RBC morphology finding Nom (Bld) NOT REPORTED [place] Segmented neutrophils/100 WBC (Bld) 73 % High 36 - 65 % [place] Segs Absolute 8.49 High [place] WBC (Bld) [#/Vol] 0.0 10*3/uL 0.0 per 10 0 WBC [place] WBC (Bld) [#/Vol] 11.7 10*3/uL [place] WBC Morphology NOT REPORTED [place] Comprehensive Metabolic Pane riddhi 03-25-2020 Albumin [Mass/Vol] 3.3 g/dL Low 3.5 - 5.2 g/dL [place] Albumin/Globulin [Mass ratio] 1.1 {ratio} [place] ALP [Catalytic activity/Vol] 118 U/L High 35 - 104 U/L [place] ALT [Catalytic activity/Vol] 14 U/L 5 - 33 U/L [place] Anion gap [Moles/Vol] 14 mmol/L 9 - 17 mmol/L [place] AST [Catalytic activity/Vol] 15 U/L <32 [place] Bilirubin Ql (U) 0.39 mg/dL 0.3 - 1.2 mg/dL [place] Bun/Cre Ratio 17 [place] Calcium [Mass/Vol] 9.1 mg/dL 8.6 - 10. 4 mg/dL [place] Chloride [Moles/Vol] 101 mmol/L 98 - 10 7 mmol/L [place] CO2 [Moles/Vol] 27 mmol/L 20 - 31 mmol/L [place] Creatinine [Mass/Vol] 1.32 mg/dL High 0.5 - 0.9 mg/dL [place] GFR 47 mL/min Low >60 [place] GFR Non- 39 mL/min Low >60 [place] Glucose [Mass/Vol] 140 mg/dL High 70 - 99 mg/dL [place] Interpretation and review of laboratory results Abnormal [place] Potassium [Moles/Vol] 3.7 mmol/L 3.7 - 5.3 mmol/L [place] Protein [Mass/Vol] 6.2 g/dL Low 6.4 - 8.3 g/dL [place] Sodium [Moles/Vol] 142 mmol/L 135 - 144 mmol/L [place] Urea nitrogen [Mass/Vol] 22 mg/dL 8 - 23 mg/dL [place] Metabolic Panelon 03-25-2020 GFR/1.73 sq M predicted among non-blacks MDRD (S/P/Bld) [Vol rate/Area] [place] Comment on above: Average GFR for 70 o r more years old: 75 mL/min/1.73sq m Chronic Kidney Disease: <60 mL/min/1.73sq m Kidney failure: <15 mL/min/1.73sq m eGFR calculated using average adult body mass. Additional eGFR calculator available at: http://www.[employer]/multiple_crcl_2012.htm Stage 1: Some kidney damage normal GFR Stage 2: Mild kidney damage GFR 60-89 Stage 3: Moderate kidney damage GFR 30-59 Stage 4: Severe kidney damage GFR 15-29 Stage 5: Severe kidney damage GFR <15 ESRD - chronic treatment by dialysis or transplant APTTon 03-23-2020 aPTT Coag (Bld) [Time] 33.4 s [place] Comment on above: IV Heparin Therapy Range: 62.0-94.0 Basic Metabolic Panel w/ Ref tosha to MGon 03-23-2020 Anion gap [Moles/Vol] 16 mmol/L 9 - 17 mmol/L [place] Bun/Cre Ratio 17 [place] Calcium [Mass/Vol] 9.2 mg/dL 8.6 - 10. 4 mg/dL [place] Chloride [Moles/Vol] 99 mmol/L 98 - 10 7 mmol/L [place] CO2 [Moles/Vol] 25 mmol/L 20 - 31 mmol/L [place] Creatinine [Mass/Vol] 1.43 mg/dL High 0.5 - 0.9 mg/dL [place] GFR 43 mL/min Low >60 [place] GFR Non- 35 mL/min Low >60 [place] Glucose [Mass/Vol] 112 mg/dL High 70 - 99 mg/dL [place] Interpretation and review of laboratory results Abnormal [place] Potassium [Moles/Vol] 4.1 mmol/L 3.7 - 5.3 mmol/L [place] Sodium [Moles/Vol] 140 mmol/L 135 - 144 mmol/L [place] Urea nitrogen [Mass/Vol] 25 mg/dL High 8 - 23 mg/dL [place] CBC Auto Differentialon 02-26 Basophils (Bld) [#/Vol] 10*3/uL [place] Basophils/100 WBC (Bld) 0 % 0 - 2 % [place] Differential Type NOT REPORTED [place] Eosinophils (Bld) [#/Vol] 0.12 10*3/uL [place] Eosinophils/100 WBC (Bld) 1 % 1 - 4 % [place] Erythrocyte distribution width (RBC) [Ratio] 14.5 % High 11.8 - 14.4 % [place] Hematocrit (Bld) [Volume fraction] 38.0 % 36.3 - 47.1 % [place] Hemoglobin (Bld) [Mass/Vol] 11.4 g/dL Low 11.9 - 15.1 g/dL [place] Immature granulocytes (Bld) [#/Vol] 0 % 0 [place] Immature granulocytes (Bld) [#/Vol] 0.03 10*3/uL [place] Interpretation and review of laboratory results Abnormal [place] Lymphocytes (Bld) [#/Vol] 1.80 10*3/uL [place] Lymphocytes/100 WBC (Bld) 17 % Low 24 - 43 % [place] MCH (RBC) [Entitic mass] 31.1 pg 25.2 - 33.5 pg [place] MCHC (RBC) [Mass/Vol] 30.0 g/dL 28.4 - 34.8 g/dL [place] MCV (RBC) [Entitic vol] 103.8 fL High 82.6 - 102.9 fL [place] Monocytes (Bld) [#/Vol] 1.42 10*3/uL [place] Monocytes/100 WBC (Bld) 13 % High 3 - 12 % [place] Platelet mean volume (Bld) [Entitic vol] 10.2 fL 8.1 - 13.5 fL [place] Platelets (Bld) [#/Vol] NOT REPORTED [place] Platelets (Bld) [#/Vol] 245 10*3/uL [place] RBC (Bld) [#/Vol] 3.66 10*6/uL Low 3.95 - 5.1 1 m/uL [place] RBC morphology finding Nom (Bld) NOT REPORTED [place] Segmented neutrophils/100 WBC (Bld) 69 % High 36 - 65 % [place] Segs Absolute 7.34 [place] WBC (Bld) [#/Vol] 10.7 10*3/uL [place] WBC (Bld) [#/Vol] 0.0 10*3/uL 0.0 per 10 0 WBC [place] WBC Morphology NOT REPORTED [place] COVID-19, PCRon 03-23-2020 SARS-CoV-2 [place] SARS-CoV-2, PCR [place] SARS-CoV-2, Rapid Not Detected Not Detected [place] Comment on above: Rapid NAAT: The [...] management decisions. Fact sheet for Healthcare Providers: https://www.fda.gov/media/295152/download Fact sheet for Patients: https://www.fda.gov/media/150880/download Methodology: Isothermal Nucleic Acid Amplification Source .NASOPHARYNGEAL SWAB [place] Metabolic Panelon 03-23-2020 GFR/1.73 sq M predicted among non-blacks MDRD (S/P/Bld) [Vol rate/Area] [place] Comment on above: Average GFR for 70 o r more years old: 75 mL/min/1.73sq m Chronic Kidney Disease: <60 mL/min/1.73sq m Kidney failure: <15 mL/min/1.73sq m eGFR calculated using average adult body mass. Additional eGFR calculator available at: http://www.[employer]/multiple_crcl_2012.htm Stage 1: Some kidney damage normal GFR Stage 2: Mild kidney damage GFR 60-89 Stage 3: Moderate kidney damage GFR 30-59 Stage 4: Severe kidney damage GFR 15-29 Stage 5: Severe kidney damage GFR <15 ESRD - chronic treatment by dialysis or transplant Protime-INRon 03-23-2020 INR Coag (PPP) [Relative time] 1.2 {INR} [place] Comment on above: Non-therapeutic Range: INR = 0.9-1.2 Therapeutic Range: Moderate Anticoagulant Intensity: INR = 2.0-3.0 High Anticoagulant Intensity: INR = 2.5-3.5 Interpretation and review of laboratory results [facility] ([facility] [Time] 14.9 s High [facility]-3 VW W PELVIS LEFTo n 03-23-2020 Erythrocyte distribution width (RBC) [Ratio] Hardware fixation of the proximal left femoral fracture without evidence for complication. Degenerative change of the SI joints and hip joints. [facility] [place], M[facility]pn Incoming Radiant Results From [employer] - 03/23/2020 3:40 PM EDT EXAMINATION: ONE [...] of the SI joints and hip joints. [facility] [place] EXAMINATION: ONE XRA Y VIEW OF THE [...] joints. The surrounding soft tissues are unremarkable. [facility] CBC Auto Differentialon 02-25 Basophils (Bld) [#/Vol] 10*3/uL [facility] [place] Basophils/100 WBC (Bld) 0 % 0 - 2 % [place] Differential Type NOT REPORTED [facility] Eosinophils (Bld) [#/Vol] 0.25 10*3/uL [place] Eosinophils/100 WBC (Bld) 5 % High 1 - 4 % [place] Erythrocyte distribution width (RBC) [Ratio] 16.0 % High 11.8 - 14.4 % [place] Hematocrit (Bld) [Volume fraction] 34.2 % Low 36.3 - 47.1 % [place] Hemoglobin (Bld) [Mass/Vol] 10.0 g/dL Low 11.9 - 15.1 g/dL [place] Immature granulocytes (Bld) [#/Vol] 0.03 10*3/uL [place] Immature granulocytes (Bld) [#/Vol] 1 % High 0 [place] Interpretation and review of laboratory results Abnormal [place] Lymphocytes (Bld) [#/Vol] 1.50 10*3/uL [place] Lymphocytes/100 WBC (Bld) 30 % 24 - 43 % [place] MCH (RBC) [Entitic mass] 31.2 pg 25.2 - 33.5 pg [place] MCHC (RBC) [Mass/Vol] 29.2 g/dL 28.4 - 34.8 g/dL [place] MCV (RBC) [Entitic vol] 106.5 fL High 82.6 - 102.9 fL [place] Monocytes (Bld) [#/Vol] 0.70 10*3/uL [place] Monocytes/100 WBC (Bld) 14 % High 3 - 12 % [place] Platelet mean volume (Bld) [Entitic vol] 10.2 fL 8.1 - 13.5 fL [place] Platelets (Bld) [#/Vol] NOT REPORTED [place] Platelets (Bld) [#/Vol] 311 10*3/uL [place] RBC (Bld) [#/Vol] 3.21 10*6/uL Low 3.95 - 5.1 1 m/uL [place] RBC morphology finding Nom (Bld) NOT REPORTED [place] Segmented neutrophils/100 WBC (Bld) 50 % 36 - 65 % [place] Segs Absolute 2.44 [place] WBC (Bld) [#/Vol] 0.0 10*3/uL 0.0 per 10 0 WBC [place] WBC (Bld) [#/Vol] 4.9 10*3/uL [place] WBC Morphology NOT REPORTED [place] Comprehensive Metabolic Pane riddhi 03-12-2020 Albumin [Mass/Vol] 3.3 g/dL Low 3.5 - 5.2 g/dL [place] Albumin/Globulin [Mass ratio] 1.6 {ratio} [place] ALP [Catalytic activity/Vol] 124 U/L High 35 - 104 U/L [place] ALT [Catalytic activity/Vol] 18 U/L 5 - 33 U/L [place] Anion gap [Moles/Vol] 14 mmol/L 9 - 17 mmol/L [place] AST [Catalytic activity/Vol] 20 U/L <32 [place] Bilirubin Ql (U) 0.19 mg/dL Low 0.3 - 1.2 mg/dL [place] Bun/Cre Ratio 20 [place] Calcium [Mass/Vol] 8.6 mg/dL 8.6 - 10. 4 mg/dL [place] Chloride [Moles/Vol] 106 mmol/L 98 - 10 7 mmol/L [place] CO2 [Moles/Vol] 24 mmol/L 20 - 31 mmol/L [place] Creatinine [Mass/Vol] 1.5 mg/dL High 0.5 - 0.9 mg/dL [place] GFR 40 mL/min Low >60 [place] GFR Non- 33 mL/min Low >60 [place] Glucose [Mass/Vol] 78 mg/dL 70 - 99 mg/dL [place] Interpretation and review of laboratory results Abnormal [place] Potassium [Moles/Vol] 4.3 mmol/L 3.7 - 5.3 mmol/L [place] Protein [Mass/Vol] 5.4 g/dL Low 6.4 - 8.3 g/dL [place] Sodium [Moles/Vol] 144 mmol/L 135 - 144 mmol/L [place] Urea nitrogen [Mass/Vol] 30 mg/dL High 8 - 23 mg/dL [place] Metabolic Panelon 03-12-2020 GFR/1.73 sq M predicted among non-blacks MDRD (S/P/Bld) [Vol rate/Area] [place] Comment on above: Stage 1: Some [...] body mass. Additional eGFR calculator available at: http://www.[employer]/multiple_crcl_2012.htm CBC Auto Differentialon Basophils (Bld) [#/Vol] 10*3/uL [place] Basophils/100 WBC (Bld) 0 % 0 - 2 % [place] Differential Type NOT REPORTED [place] Eosinophils (Bld) [#/Vol] 0.25 10*3/uL [place] Eosinophils/100 WBC (Bld) 4 % 1 - 4 % [place] Erythrocyte distribution width (RBC) [Ratio] 17.5 % High 11.8 - 14.4 % [place] Hematocrit (Bld) [Volume fraction] 33.4 % Low 36.3 - 47.1 % [place] Hemoglobin (Bld) [Mass/Vol] 10.0 g/dL Low 11.9 - 15.1 g/dL [place] Immature granulocytes (Bld) [#/Vol] 0.03 10*3/uL [place] Immature granulocytes (Bld) [#/Vol] 1 % High 0 [place] Interpretation and review of laboratory results Abnormal [place] Lymphocytes (Bld) [#/Vol] 1.40 10*3/uL [place] Lymphocytes/100 WBC (Bld) 23 % Low 24 - 43 % [place] MCH (RBC) [Entitic mass] 31.1 pg 25.2 - 33.5 pg [place] MCHC (RBC) [Mass/Vol] 29.9 g/dL 28.4 - 34.8 g/dL [place] MCV (RBC) [Entitic vol] 103.7 fL High 82.6 - 102.9 fL [place] Monocytes (Bld) [#/Vol] 0.58 10*3/uL [place] Monocytes/100 WBC (Bld) 9 % 3 - 12 % [place] Platelet mean volume (Bld) [Entitic vol] 9.6 fL 8.1 - 13.5 fL [place] Platelets (Bld) [#/Vol] NOT REPORTED [place] Platelets (Bld) [#/Vol] 403 10*3/uL [place] RBC (Bld) [#/Vol] 3.22 10*6/uL Low 3.95 - 5.1 1 m/uL [place] RBC morphology finding Nom (Bld) NOT REPORTED [place] Segmented neutrophils/100 WBC (Bld) 63 % 36 - 65 % [place] Segs Absolute 3.89 [place] WBC (Bld) [#/Vol] 0.0 10*3/uL 0.0 per 10 0 WBC [place] WBC (Bld) [#/Vol] 6.2 10*3/uL [place] WBC Morphology NOT REPORTED [place] Comprehensive Metabolic Pane riddhi 02-27-2020 Albumin [Mass/Vol] 3.3 g/dL Low 3.5 - 5.2 g/dL [place] Albumin/Globulin [Mass ratio] 1.3 {ratio} [place] ALP [Catalytic activity/Vol] 145 U/L High 35 - 104 U/L [place] ALT [Catalytic activity/Vol] 40 U/L High 5 - 33 U/L [place] Anion gap [Moles/Vol] 11 mmol/L 9 - 17 mmol/L [place] AST [Catalytic activity/Vol] 34 U/L High <32 [place] Bilirubin Ql (U) 0.39 mg/dL 0.3 - 1.2 mg/dL [place] Bun/Cre Ratio 21 [place] Calcium [Mass/Vol] 8.8 mg/dL 8.6 - 10. 4 mg/dL [place] Chloride [Moles/Vol] 107 mmol/L 98 - 10 7 mmol/L [place] CO2 [Moles/Vol] 24 mmol/L 20 - 31 mmol/L [place] Creatinine [Mass/Vol] 1.32 mg/dL High 0.5 - 0.9 mg/dL [place] GFR 47 mL/min Low >60 [place] GFR Non- 39 mL/min Low >60 [place] Glucose [Mass/Vol] 103 mg/dL High 70 - 99 mg/dL [place] Interpretation and review of laboratory results Abnormal [place] Potassium [Moles/Vol] 3.8 mmol/L 3.7 - 5.3 mmol/L [place] Protein [Mass/Vol] 5.9 g/dL Low 6.4 - 8.3 g/dL [place] Sodium [Moles/Vol] 142 mmol/L 135 - 144 mmol/L [place] Urea nitrogen [Mass/Vol] 28 mg/dL High 8 - 23 mg/dL [place] Metabolic Panelon 02-27-2020 GFR/1.73 sq M predicted among non-blacks MDRD (S/P/Bld) [Vol rate/Area] [place] Comment on above: Stage 1: Some [...] body mass. Additional eGFR calculator available at: http://www.[employer]/multiple_crcl_2012.htm CBC Auto Differentialon 01-26 Basophils (Bld) [#/Vol] 10*3/uL [place] Basophils/100 WBC (Bld) 0 % 0 - 2 % [place] Differential Type NOT REPORTED [place] Eosinophils (Bld) [#/Vol] 0.33 10*3/uL [place] Eosinophils/100 WBC (Bld) 4 % 1 - 4 % [place] Erythrocyte distribution width (RBC) [Ratio] 16.7 % High 11.8 - 14.4 % [place] Hematocrit (Bld) [Volume fraction] 31.9 % Low 36.3 - 47.1 % [place] Hemoglobin (Bld) [Mass/Vol] 9.7 g/dL Low 11.9 - 15.1 g/dL [place] Immature granulocytes (Bld) [#/Vol] 0.20 10*3/uL [place] Immature granulocytes (Bld) [#/Vol] 2 % High 0 [place] Interpretation and review of laboratory results Abnormal [place] Lymphocytes (Bld) [#/Vol] 2.08 10*3/uL [place] Lymphocytes/100 WBC (Bld) 23 % Low 24 - 43 % [place] MCH (RBC) [Entitic mass] 30.8 pg 25.2 - 33.5 pg [place] MCHC (RBC) [Mass/Vol] 30.4 g/dL 28.4 - 34.8 g/dL [place] MCV (RBC) [Entitic vol] 101.3 fL 82.6 - 102.9 fL [place] Monocytes (Bld) [#/Vol] 1.09 10*3/uL [place] Monocytes/100 WBC (Bld) 12 % 3 - 12 % [place] Platelet mean volume (Bld) [Entitic vol] 9.8 fL 8.1 - 13.5 fL [place] Platelets (Bld) [#/Vol] NOT REPORTED [place] Platelets (Bld) [#/Vol] 468 10*3/uL [place] RBC (Bld) [#/Vol] 3.15 10*6/uL Low 3.95 - 5.1 1 m/uL [place] RBC morphology finding Nom (Bld) NOT REPORTED [place] Segmented neutrophils/100 WBC (Bld) 59 % 36 - 65 % [place] Segs Absolute 5.43 [place], [place] WBC (Bld) [#/Vol] 0.0 10*3/uL 0.0 per 10 0 WBC [place] WBC (Bld) [#/Vol] 9.2 10*3/uL [place] WBC Morphology NOT REPORTED [place] Comprehensive Metabolic Pane riddhi 02-20-2020 Albumin [Mass/Vol] 3.3 g/dL Low 3.5 - 5.2 g/dL [place] Albumin/Globulin [Mass ratio] 1.2 {ratio} [place] ALP [Catalytic activity/Vol] 158 U/L High 35 - 104 U/L [place] ALT [Catalytic activity/Vol] 101 U/L High 5 - 33 U/L [place] Anion gap [Moles/Vol] 15 mmol/L 9 - 17 mmol/L [place] AST [Catalytic activity/Vol] 100 U/L High <32 [place] Bilirubin Ql (U) 0.43 mg/dL 0.3 - 1.2 mg/dL [place] Bun/Cre Ratio 23 High [place] Calcium [Mass/Vol] 8.6 mg/dL 8.6 - 10. 4 mg/dL [place] Chloride [Moles/Vol] 102 mmol/L 98 - 10 7 mmol/L [place] CO2 [Moles/Vol] 22 mmol/L 20 - 31 mmol/L [place] Creatinine [Mass/Vol] 1.46 mg/dL High 0.5 - 0.9 mg/dL [place] GFR 42 mL/min Low >60 [place] GFR Non- 34 mL/min Low >60 [place] Glucose [Mass/Vol] 98 mg/dL 70 - 99 mg/dL [place] Interpretation and review of laboratory results Abnormal [place] Potassium [Moles/Vol] 3.6 mmol/L Low 3.7 - 5.3 mmol/L [place] Protein [Mass/Vol] 6.0 g/dL Low 6.4 - 8.3 g/dL [place] Sodium [Moles/Vol] 139 mmol/L 135 - 144 mmol/L [place] Urea nitrogen [Mass/Vol] 33 mg/dL High 8 - 23 mg/dL [place] Metabolic Panelon 02-20-2020 GFR/1.73 sq M predicted among non-blacks MDRD (S/P/Bld) [Vol rate/Area] [place] Comment on above: Stage 1: Some [...] body mass. Additional eGFR calculator available at: http://www.[employer]/multiple_crcl_2012.htm Danna Bobo 02-17-2020 C Bld -- - Final No growth at [address] [facility] Comment on above: Performed By: #### E GFR #### [place] [id number] C Bld Blood cultures x 2 - Final No growth at [address] [facility] Comment on above: Performed By: #### F OL #### [address] [address] .eGFRon 02-15-2020 eGFR AA 40 mL/min/1.73m? Low >=60 [facility] Comment on above: Result Comment: Resu lt = 0-14.9 mL/min/1.73 m2 Kidney failure or Dialysis Result = 15-29 mL/min/1.73 m2 Severe decrease in GFR Result = 30-59 mL/min/1.73 m2 Moderate decrease in GFR Result >= 60 mL/min/1.73 m2 Normal or increased GFR Performed By: #### T IBC #### [place] [id number] eGFR Non-AA 33 mL/min/1.73m? Low >=60 [facility] Comment on above: Result Comment: Resu [...] dosing. Performed By: #### T IBC #### [address] [address] CBCon 02-15-2020 Erythrocyte distribution width (RBC) [Ratio] 14.7 % Normal 11.6-14.8 [facility] Comment on above: Performed By: #### F OL #### [place] [id number] Hematocrit (Bld) [Volume fraction] 28.4 % Low 36.0-46.0 [facility] Comment on above: Performed By: #### F OL #### [place] [id number] Hemoglobin (Bld) [Mass/Vol] 9.3 g/dL Low 12.0-16.0 [facility] Comment on above: Performed By: #### F OL #### [place] [id number] MCH (RBC) [Entitic mass] 30.7 pg Normal 27.0-35.0 [facility] Comment on above: Performed By: #### F OL #### [address] [address] MCHC (RBC) [Mass/Vol] 32.8 % Normal 31.0-37.0 [facility] Comment on above: Performed By: #### F OL #### [address] [address] MCV (RBC) [Entitic vol] 93.4 fL Normal 80.0-100.0 [facility] Comment on above: Performed By: #### F OL #### [address] [address] Platelet mean volume (Bld) [Entitic vol] 8.4 fL Normal 6.7-10.6 [facility] Comment on above: Performed By: #### F OL #### [address] [address] Platelets (Bld) [#/Vol] 246 x10*3/mcL Normal 150-350 [facility] Comment on above: Performed By: #### F OL #### [address] [address] RBC (Bld) [#/Vol] 3.04 x10*6/mcL Low 3.80-5.20 [facility] Comment on above: Performed By: #### F OL #### [address] [address] WBC (Bld) [#/Vol] 8.2 x10*3/mcL Normal 4.5-11.0 [facility] Comment on above: Performed By: #### F OL #### [address] [address] Magnesiumon 02-15-2020 Magnesium [Mass/Vol] 2.1 mg/dL Normal 1.7-2.4 [facility] Comment on above: Performed By: #### T IBC #### [address] [address] Nephrology Progress Noteon 0 02-15-2020 Nephrology Progress [...] acute pulmonary process. Signed By: Manolo KUMAR, mad Computed Tomography No qualifying data available. Ultrasound No qualifying data available. Magnetic Resonance Imaging No qualifying data available. Nuclear Medicine No qualifying data available. Physical Exam Lungs: [Clear, non-labored respiration]. Heart: [Normal rate, regular rhythm, no edema]. Abdomen: [Soft, non-tender, non-distended, normal bowel sounds]. Mental Status:[Alert and oriented x3]. Medications Inpatient acetaminophen, 650 mg, Oral, q6hr, PRN acetaminophen, 1000 mg, Oral, [id number] Times ALPRAZolam, 0.25 mg, Oral, HS (at bedtime) calcitriol, 0.25 mcg, Oral, Mo//Fr Dulcolax Laxative, 10 mg, Oral, Daily, PRN Haldol, 2.5 mg, 0.5 mL, IM, [id number] Times, PRN hydrALAZINE, 25 mg, Oral, TID Lovenox, 30 mg, 0.3 mL, Subcutaneous, q24hr meclizine, 25 mg, Oral, TID, PRN MiraLax, 17 g, 1 EA, Oral, Daily naloxone, 0.4 mg, 1 mL, IV Push, q2min, PRN Sandpoint 5 mg-325 mg oral tablet, 1 tabs, [...] by Dr. Jordan on 02/09 [address]charged to [facility] for rehab post surgery. 6. Intertrochanteric fracture [...] Hearing loss sensory, bilateral Discharge planning to [facility]. Follow-up with Dr. Chew on discharge. Electronically [...] several weeks from now Electronically signed by Jesus Chew DOzacharydavid Hadley 02/15/20 23:31 EDT [facility] Progress Note-Nurseon 2019 Progress Note-Nurse Nurse Serg called [facility] to give report regarding the discharge. [...] bruising and skin tears. Electronically signed by Serg Lai 02/15/20 13:[address] [facility] Provider Letteron 02-15-2020 Provider Letter Justino Dhaliwal DO [address] [place] [address] Re: Jesús Nolan Date of Visit: 02/09/2020 Dear Justino Dhaliwal, I had the pleasure of taking care of your patient in the hospital. I have included my documentation for your review. Please let me know if you have any questions or concerns. Sincerely, Valerie Mota, GLORIA-KENISHA Clay C Providers: The following document(s) were included in the letter: February 15, 2020 10:09:39 EDT - (02/15/2020) Hospitalist Discharge Summary Note Normal [facility] Renal Panelon 02-15-2020 Albumin [Mass/Vol] 3.0 g/dL Low 3.2-4.9 [facility] Comment on above: Result Comment: [facility] updated the methodology used for albumin testing on 05/04/18. Albumin measurement was performed using a bromcresol purple dye-binding assay. Performed By: #### E GFR #### [address] [address] Anion gap [Moles/Vol] 15 mmol/L Normal 7-17 [facility] Comment on above: Performed By: #### E GFR #### [address] [address] Calcium [Mass/Vol] 8.2 mg/dL Low 8.5-10.3 [facility] Comment on above: Performed By: #### E GFR #### [address] [address] Chloride [Moles/Vol] 103 mmol/L Normal 98-110 [facility] Comment on above: Performed By: #### E GFR #### [address] [address] CO2 [Moles/Vol] 25 mmol/L Normal 22-32 [facility] Comment on above: Performed By: #### E GFR #### [address] [address] Creatinine [Mass/Vol] 1.51 mg/dL High 0.44-1.03 [facility] Comment on above: Performed By: #### E GFR #### [address] [address] Glucose [Mass/Vol] 105 mg/dL High 70-99 [facility] Comment on above: Performed By: #### E GFR #### [address] [address] Phosphate [Mass/Vol] 3.4 mg/dL Normal 2.5-4.6 [facility] Comment on above: Performed By: #### E GFR #### [address] [address] Potassium [Moles/Vol] 4.4 mmol/L Normal 3.4-4.8 [facility] Comment on above: Performed By: #### E GFR #### [address] [address] Sodium [Moles/Vol] 139 mmol/L Normal 133-142 [facility] Comment on above: Performed By: #### E GFR #### [address] [address] Urea nitrogen [Mass/Vol] 26 mg/dL Normal 8-26 [facility] Comment on above: Performed By: #### E GFR #### [address] [address] Urea nitrogen/Creatinine [Mass ratio] 17.2 mg/mg Normal 10.0-20.0 [facility] Comment on above: Performed By: #### E GFR #### [address] [address] [id number] RNA PCR Send O vton 02-15-2020 [id number] RNA by PCR Not Detected Normal Not Detected [facility] Comment on above: Order Comment: utmcf or nh placement in a couple days Result Comment: Miss ing Attachment Chartable Reference Lab Reports Can be viewed in source system Performed By: #### E GFR #### [address] [place] [address] .eGFRon 02-14-2020 eGFR Non-AA 37 mL/min/1.73m? Low >=60 [facility] Comment on above: Result Comment: Resu [...] dosing. Performed By: #### E GFR #### [place] [address] eGFR AA 45 mL/min/1.73m? Low >=60 [facility] Comment on above: Result Comment: Resu lt = 0-14.9 mL/min/1.73 m2 Kidney failure or Dialysis Result = 15-29 mL/min/1.73 m2 Severe decrease in GFR Result = 30-59 mL/min/1.73 m2 Moderate decrease in GFR Result >= 60 mL/min/1.73 m2 Normal or increased GFR Performed By: #### E GFR #### [place] [id number] CBCon 02-14-2020 Erythrocyte distribution width (RBC) [Ratio] 14.5 % Normal 11.6-14.8 [facility] Comment on above: Performed By: #### T IBC #### [address] [address] Hematocrit (Bld) [Volume fraction] 26.8 % Low 36.0-46.0 [facility] Comment on above: Performed By: #### T IBC #### [address] [address] Hemoglobin (Bld) [Mass/Vol] 8.8 g/dL Low 12.0-16.0 [facility] Comment on above: Performed By: #### T IBC #### [address] [address] MCH (RBC) [Entitic mass] 30.6 pg Normal 27.0-35.0 [facility] Comment on above: Performed By: #### T IBC #### [address] [address] MCHC (RBC) [Mass/Vol] 33.0 % Normal 31.0-37.0 [facility] Comment on above: Performed By: #### T IBC #### [address] [address] MCV (RBC) [Entitic vol] 92.8 fL Normal 80.0-100.0 [facility] Comment on above: Performed By: #### T IBC #### [address] [address] Platelet mean volume (Bld) [Entitic vol] 8.7 fL Normal 6.7-10.6 [facility] Comment on above: Performed By: #### T IBC #### [address] [address] Platelets (Bld) [#/Vol] 190 x10*3/mcL Normal 150-350 [facility] Comment on above: Performed By: #### T IBC #### [address] [address] RBC (Bld) [#/Vol] 2.89 x10*6/mcL Low 3.80-5.20 [facility] Comment on above: Performed By: #### T IBC #### [address] [address] WBC (Bld) [#/Vol] 8.6 x10*3/mcL Normal 4.5-11.0 [facility] Comment on above: Performed By: #### T IBC #### [address] [address] Magnesiumon 02-14-2020 Magnesium [Mass/Vol] 2.2 mg/dL Normal 1.7-2.4 [facility] Comment on above: Performed By: #### P [facility] #### [facility] [address] [place] [address] Nephrology Progress Noteon 0 02-14-2020 Nephrology Progress [...] acute pulmonary process. Signed By: Manolo KUMAR, [facility] Computed Tomography No qualifying data available. Ultrasound [...] Oral, q6hr, PRN acetaminophen, 1000 mg, Oral, [id number]-[id number] Times ALPRAZolam, 0.25 mg, Oral, HS (at bedtime) calcitriol, 0.25 mcg, Oral, Mo// Dulcolax Laxative, 10 mg, Oral, Daily, PRN Haldol, 2.5 mg, 0.5 mL, IM, [id number] Times, PRN hydrALAZINE, 25 mg, Oral, TID Lovenox, 30 mg, 0.3 mL, Subcutaneous, q24hr meclizine, 25 mg, Oral, TID, PRN naloxone, 0.4 mg, 1 mL, IV Push, q2min, PRN Sandpoint 5 mg-325 mg oral tablet, 1 tabs, [...] Hearing loss sensory, bilateral Possible discharge to [facility] testing pending. Follow-up with Dr. Chew on [...] hydralazine. Electronically signed by Dilan Chew DO Juliacarl 02/14/20 22:[address] [facility] Orthopedic Progress Noteon 0 02-14-2020 Orthopedic [...] Oral, q6hr, PRN acetaminophen, 1000 mg, Oral, [id number]-[id number] Times ALPRAZolam, 0.25 mg, Oral, HS (at bedtime) calcitriol, 0.25 mcg, Oral, Mo/We/Fr Dulcolax Laxative, 10 mg, Oral, Daily, PRN Haldol, 2.5 mg, 0.5 mL, IM, [id number] Times, PRN hydrALAZINE, 25 mg, Oral, TID Lovenox, 30 mg, 0.3 mL, Subcutaneous, q24hr meclizine, 25 mg, Oral, TID, PRN MiraLax, 17 g, 1 EA, Oral, Daily naloxone, 0.4 mg, 1 mL, IV Push, q2min, PRN Sandpoint 5 mg-325 mg oral tablet, 1 tabs, [...] Naman Edmond PA-C 02/14/20 19:[address] [facility] Renal Panelon 02-14-2020 Albumin [Mass/Vol] 2.9 g/dL Low 3.2-4.9 [facility] Comment on above: Result Comment: [facility] updated the methodology used for albumin testing on 05/04/18. Albumin measurement was performed using a bromcresol purple dye-binding assay. Performed By: #### E GFR #### [address] [address] Anion gap [Moles/Vol] 14 mmol/L Normal 7-17 [facility] Comment on above: Performed By: #### E GFR #### [address] [address] Calcium [Mass/Vol] 8.1 mg/dL Low 8.5-10.3 [facility] Comment on above: Performed By: #### E GFR #### [address] [address] Chloride [Moles/Vol] 103 mmol/L Normal 98-110 [facility] Comment on above: Performed By: #### E GFR #### [address] [address] CO2 [Moles/Vol] 25 mmol/L Normal 22-32 [facility] Comment on above: Performed By: #### E GFR #### [address] [address] Creatinine [Mass/Vol] 1.37 mg/dL High 0.44-1.03 [facility] Comment on above: Performed By: #### E GFR #### [address] [address] Glucose [Mass/Vol] 115 mg/dL High 70-99 [facility] Comment on above: Performed By: #### E GFR #### [address] [address] Phosphate [Mass/Vol] 2.0 mg/dL Low 2.5-4.6 [facility] Comment on above: Performed By: #### E GFR #### [address] [address] Potassium [Moles/Vol] 3.9 mmol/L Normal 3.4-4.8 [facility] Comment on above: Performed By: #### E GFR #### [address] [address] Sodium [Moles/Vol] 138 mmol/L Normal 133-142 [facility] Comment on above: Performed By: #### E GFR #### [address] [address] Urea nitrogen [Mass/Vol] 20 mg/dL Normal 8-26 [facility] Comment on above: Performed By: #### E GFR #### [place] [address] Urea nitrogen/Creatinine [Mass ratio] 14.6 mg/mg Normal 10.0-20.0 [facility] Comment on above: Performed By: #### E GFR #### [address] [address] .UA Microscp Aon 02-13-2020 UA Mucus Present Abnormal Absent [facility] Comment on above: Performed By: #### C [id number] #### [address] [address] UA RBC Quant 0 /HPF Normal 0-5 [facility] Comment on above: Performed By: #### C [id number] #### [address] [address] UA WBC Quant 0 /HPF Normal 0-5 [facility] Comment on above: Performed By: #### C [id number] #### [address] [address] .eGFRon 02-13-2020 eGFR Non-AA 30 mL/min/1.73m? Low >=60 [facility] Comment on above: Order Comment: Order [...] dosing. Performed By: #### E GFR #### [place] [id number] eGFR AA 36 mL/min/1.73m? Low >=60 [facility] Comment on above: Order Comment: Order added by Discern rule Result Comment: Resu lt = 0-14.9 mL/min/1.73 m2 Kidney failure or Dialysis Result = 15-29 mL/min/1.73 m2 Severe decrease in GFR Result = 30-59 mL/min/1.73 m2 Moderate decrease in GFR Result >= 60 mL/min/1.73 m2 Normal or increased GFR Performed By: #### E GFR #### [place] [id number] CBCon 02-13-2020 Erythrocyte distribution width (RBC) [Ratio] 14.5 % Normal 11.6-14.8 [facility] Comment on above: Performed By: #### E GFR #### [address] [address] Hematocrit (Bld) [Volume fraction] 27.6 % Low 36.0-46.0 [facility] Comment on above: Performed By: #### E GFR #### [address] [address] Hemoglobin (Bld) [Mass/Vol] 9.1 g/dL Low 12.0-16.0 [facility] Comment on above: Performed By: #### E GFR #### [address] [address] MCH (RBC) [Entitic mass] 30.7 pg Normal 27.0-35.0 [facility] Comment on above: Performed By: #### E GFR #### [address] [address] MCHC (RBC) [Mass/Vol] 32.9 % Normal 31.0-37.0 [facility] Comment on above: Performed By: #### E GFR #### [address] [address] MCV (RBC) [Entitic vol] 93.2 fL Normal 80.0-100.0 [facility] Comment on above: Performed By: #### E GFR #### [address] [address] Platelet mean volume (Bld) [Entitic vol] 9.0 fL Normal 6.7-10.6 [facility] Comment on above: Performed By: #### E GFR #### [address] [address] Platelets (Bld) [#/Vol] 169 x10*3/mcL Normal 150-350 [facility] Comment on above: Performed By: #### E GFR #### [address] [address] RBC (Bld) [#/Vol] 2.96 x10*6/mcL Low 3.80-5.20 [facility] Comment on above: Performed By: #### E GFR #### [address] [address] WBC (Bld) [#/Vol] 9.8 x10*3/mcL Normal 4.5-11.0 [facility] Comment on above: Performed By: #### E GFR #### [address] [address] Pipe Out Worker Progress Noteon 02-13-2020 Pipe Out Worker Progress Note Second IMM letter delivered to patient. Electronically signed by Kasie Flowers 02/13/20 09:[address] [facility] Magnesiumon 02-13-2020 Magnesium [Mass/Vol] 2.3 mg/dL Normal 1.7-2.4 [facility] Comment on above: Performed By: #### E GFR #### [facility] [address] [place] [address] Nephrology Progress Noteon 0 02-13-2020 Nephrology Progress [...] acute pulmonary process. Signed By: Manolo KUMAR, manannette XR Femur 2 or More Views Left [...] mg, 1 mL, IV Push, q2min, PRN Sandpoint 5 mg-325 mg oral tablet, 1 tabs, [...] antihypertensive medications. Electronically signed by Dilan Chew DO 02/13/20 23:[address] [facility] Orthopedic Progress Noteon 0 02-13-2020 Orthopedic [...] Oral, q6hr, PRN acetaminophen, 1000 mg, Oral, [id number] Times ALPRAZolam, 0.25 mg, Oral, HS (at bedtime) calcitriol, 0.25 mcg, Oral, Mo/We/Fr Dulcolax Laxative, 10 mg, Oral, Daily, PRN Haldol, 2.5 mg, 0.5 mL, IM, [id number] Times, PRN hydrALAZINE, 25 mg, Oral, TID Lovenox, 30 mg, 0.3 mL, Subcutaneous, q24hr meclizine, 25 mg, Oral, TID, PRN naloxone, 0.4 mg, 1 mL, IV Push, q2min, PRN Sandpoint 5 mg-325 mg oral tablet, 1 tabs, [...] prophylaxis, and PT. Okay to DC to [facility] from orthopedic standpoint. Follow-up at [facility] with Dr. Jordan in 2 weeks. 3. Chronic kidney disease 4. Electrolyte abnormality 5. Renal osteodystrophy 6. Hypertension 7. Status post hip surgery 8. Laceration of head 9. Hearing loss sensory, bilateral 10. Anemia Electronically signed by Naman Edmond PA-C 02/13/20 17:[address] [facility] Renal Panelon 02-13-2020 Albumin [Mass/Vol] 3.4 g/dL Normal 3.2-4.9 [facility] Comment on above: Result Comment: [facility] updated the methodology used for albumin testing on 05/04/18. Albumin measurement was performed using a bromcresol purple dye-binding assay. Performed By: #### R ENAL #### [address] [address] Anion gap [Moles/Vol] 13 mmol/L Normal 7-17 [facility] Comment on above: Performed By: #### R ENAL #### [address] [address] Calcium [Mass/Vol] 8.0 mg/dL Low 8.5-10.3 [facility] Comment on above: Performed By: #### R ENAL #### [address] [address] Chloride [Moles/Vol] 105 mmol/L Normal 98-110 [facility] Comment on above: Performed By: #### R ENAL #### [address] [address] CO2 [Moles/Vol] 26 mmol/L Normal 22-32 [facility] Comment on above: Performed By: #### R ENAL #### [address] [address] Creatinine [Mass/Vol] 1.64 mg/dL High 0.44-1.03 [facility] Comment on above: Performed By: #### R ENAL #### [address] [address] Glucose [Mass/Vol] 114 mg/dL High 70-99 [facility] Comment on above: Performed By: #### R ENAL #### [address] [address] Phosphate [Mass/Vol] 2.8 mg/dL Normal 2.5-4.6 [facility] Comment on above: Performed By: #### R ENAL #### [address] [address] Potassium [Moles/Vol] 4.2 mmol/L Normal 3.4-4.8 [facility] Comment on above: Performed By: #### R ENAL #### [address] [address] Sodium [Moles/Vol] 140 mmol/L Normal 133-142 [facility] Comment on above: Performed By: #### R ENAL #### [address] [address] Urea nitrogen [Mass/Vol] 23 mg/dL Normal 8-26 [facility] Comment on above: Performed By: #### R ENAL #### [address] [address] Urea nitrogen/Creatinine [Mass ratio] 14.0 mg/mg Normal 10.0-20.0 [facility] Comment on above: Performed By: #### R ENAL #### [address] [address] UA w Culture if Indon 2019 Color (U) Yellow Normal [facility] Comment on above: Performed By: #### T IBC #### [address] [address] Glucose (U) [Mass/Vol] Negative Normal Negative [facility] Comment on above: Performed By: #### T IBC #### [facility] [address] [place] [address] Ketones Ql (U) Negative Normal Negative [facility] Comment on above: Performed By: #### T IBC #### [facility] [address] [place] [address], [place] [address] UA Blood Moderate Abnormal Negative [facility] Comment on above: Performed By: #### T IBC #### [address] [place] [address] UA Clarity Hazy Normal [facility] Comment on above: Performed By: #### T IBC #### [address] [place] [address] UA Leukocyte Esterase Negative Normal Negative [facility] Comment on above: Performed By: #### T IBC #### [address] [place] [address] UA Nitrite Negative Normal Negative [facility] Comment on above: Performed By: #### T IBC #### [address] [place] [address] UA pH 5.0 Normal 4.5 - 7.8 [facility] Comment on above: Performed By: #### T IBC #### [address] [place] [address] UA Protein 30 mg/dL Abnormal Negative [facility] Comment on above: Performed By: #### T IBC #### [address] [place] [address] UA Source Clean Catch Normal [facility] Comment on above: Performed By: #### T IBC #### [address] [place] [address] UA Spec Grav 1.014 Normal 1.003-1.035 [facility] Comment on above: Performed By: #### T IBC #### [address] [address] UA Urobilinogen 0.2 mg/dL Normal 0.2 - 1.0 [facility] Comment on above: Performed By: #### T IBC #### [place] [address] [place] [address] Urobilinogen Qn (U) Negative Normal Negative [facility] Comment on above: Performed By: #### T IBC #### [address] [address] .eGFRon 02-12-2020 eGFR AA 44 mL/min/1.73m? Low >=60 [facility] Comment on above: Order Comment: Order added by Discern rule Result Comment: Resu lt = 0-14.9 mL/min/1.73 m2 Kidney failure or Dialysis Result = 15-29 mL/min/1.73 m2 Severe decrease in GFR Result = 30-59 mL/min/1.73 m2 Moderate decrease in GFR Result >= 60 mL/min/1.73 m2 Normal or increased GFR Performed By: #### E GFR #### [place] [address] eGFR Non-AA 36 mL/min/1.73m? Low >=60 [facility] Comment on above: Order Comment: Order [...] dosing. Performed By: #### E GFR #### [address] [address] CBCon 02-12-2020 Erythrocyte distribution width (RBC) [Ratio] 14.3 % Normal 11.6-14.8 [facility] Comment on above: Performed By: #### T IBC #### [address] [address] Hematocrit (Bld) [Volume fraction] 28.6 % Low 36.0-46.0 [facility] Comment on above: Performed By: #### T IBC #### [address] [address] Hemoglobin (Bld) [Mass/Vol] 9.4 g/dL Low 12.0-16.0 [facility] Comment on above: Performed By: #### T IBC #### [address] [address] MCH (RBC) [Entitic mass] 31.0 pg Normal 27.0-35.0 [facility] Comment on above: Performed By: #### T IBC #### [address] [address] MCHC (RBC) [Mass/Vol] 33.0 % Normal 31.0-37.0 [facility] Comment on above: Performed By: #### T IBC #### [address] [address] MCV (RBC) [Entitic vol] 93.9 fL Normal 80.0-100.0 [facility] Comment on above: Performed By: #### T IBC #### [address] [address] Platelet mean volume (Bld) [Entitic vol] 8.7 fL Normal 6.7-10.6 [facility] Comment on above: Performed By: #### T IBC #### [address] [address] Platelets (Bld) [#/Vol] 136 x10*3/mcL Low 150-350 [facility] Comment on above: Performed By: #### T IBC #### [address] [address] RBC (Bld) [#/Vol] 3.05 x10*6/mcL Low 3.80-5.20 [facility] Comment on above: Performed By: #### T IBC #### [facility] [address] [place] [address] WBC (Bld) [#/Vol] 11.4 x10*3/mcL High 4.5-11.0 [facility] Comment on above: Performed By: #### T IBC #### [facility] [address] [place] [address] Magnesiumon 02-12-2020 Magnesium [Mass/Vol] 2.5 mg/dL High 1.7-2.4 [facility] Comment on above: Performed By: #### M G #### [address] [address] Nephrology Progress Noteon 0 02-12-2020 Nephrology Progress [...] acute pulmonary process. Signed By: Manolo KUMAR, [facility] [place] 2 or More Views Left 02/11/20 11:18:08 IMPRESSION: Intraoperative images demonstrating ORIF of the left femoral neck. It should be noted that there is no radiopaque marker indicating laterality on these images. Signed By: Pal KUMAR, [facility] [employer] Tom[employer] No qualifying data available. Physical [...] mg, 1 mL, IV Push, q2min, PRN Sandpoint 5 mg-325 mg oral tablet, 1 tabs, [...] intertrochanteric fracture Electronically signed by Dilan Chew DOariobenito 02/12/20 21:[address] [facility] Orthopedic Progress Noteon 0 02-12-2020 Orthopedic [...] mg, 1 mL, IV Push, q2min, PRN Sandpoint 5 mg-325 mg oral tablet, 1 tabs, [...] Naman Edmond PA-C 02/12/20 11:[address] [facility] PTH-INTon 02-12-2020 PTH Intact 94 pg/mL High 12-88 [facility] Comment on above: Performed By: #### P HOS #### [address] [address] Procalcitonin Levelon 2019 Procalcitonin Lvl 0.54 ng/mL High <=0.49 [facility] Comment on above: Result Comment: < [...] hours. Performed By: #### E GFR #### [address] [address] Progress Note - [employer] Progress Note - [...] laterality on these images. Signed By: Sterling Augillon MD Computed Tomography No qualifying data available. [...] mg, 1 mL, IV Push, q2min, PRN Sandpoint 5 mg-325 mg oral tablet, 1 tabs, [...] Dose: 02/12/20 21:00:00 EDT, Dispense From Location: [facility] EKG Indwelling Urinary Catheter Discontinue Sitter at [...] by Kenyatta Pena 02/12/20 10:[address] [facility] Progress Note-Nurseon 2019 Progress Note-Nurse Attempted to administer morning meds and new meds that were ordered by nephrology. Patient is currently confused and combative, and refusing all patient care. Electronically signed by ____Mery Jarvis 02/12/20 13:[address] [facility] Renal Panelon 02-12-2020 Albumin [Mass/Vol] 3.6 g/dL Normal 3.2-4.9 [facility] Comment on above: Result Comment: [facility] Laboratory updated the methodology used for albumin testing on 05/04/18. Albumin measurement was performed using a bromcresol purple dye-binding assay. Performed By: #### P HOS #### [address] [address] Anion gap [Moles/Vol] 14 mmol/L Normal 7-17 [facility] Comment on above: Performed By: #### P HOS #### [address] [address] Calcium [Mass/Vol] 8.1 mg/dL Low 8.5-10.3 [facility] Comment on above: Performed By: #### P HOS #### [address] [address] Chloride [Moles/Vol] 98 mmol/L Normal 98-110 [facility] Comment on above: Performed By: #### P HOS #### [address] [address] CO2 [Moles/Vol] 26 mmol/L Normal 22-32 [facility] Comment on above: Performed By: #### P HOS #### [address] [address] Creatinine [Mass/Vol] 1.39 mg/dL High 0.44-1.03 [facility] Comment on above: Performed By: #### P HOS #### [address] [address] Glucose [Mass/Vol] 134 mg/dL High 70-99 [facility] Comment on above: Performed By: #### P HOS #### [address] [address] Phosphate [Mass/Vol] 2.6 mg/dL Normal 2.5-4.6 [facility] Comment on above: Performed By: #### P HOS #### [facility] [address] [place] [address] Potassium [Moles/Vol] 3.8 mmol/L Normal 3.4-4.8 [facility] Comment on above: Performed By: #### P HOS #### [address] [address] Sodium [Moles/Vol] 134 mmol/L Normal 133-142 [facility] Comment on above: Performed By: #### P HOS #### [address] [address] Urea nitrogen [Mass/Vol] 21 mg/dL Normal 8-26 [facility] Comment on above: Performed By: #### P HOS #### [address] [address] Urea nitrogen/Creatinine [Mass ratio] 15.1 mg/mg Normal 10.0-20.0 [facility] Comment on above: Performed By: #### P HOS #### [address] [address] XR Chest 1 Viewon 02-12-2020 XR Chest [...] Electronically Signed in Other Vendor System) Normal [facility] .eGFRon 02-11-2020 eGFR Non-AA 33 mL/min/1.73m? Low >=60 [facility] Comment on above: Order Comment: Order [...] dosing. Performed By: #### F OL #### [address] [address] eGFR AA 40 mL/min/1.73m? Low >=60 [facility] Comment on above: Order Comment: Order added by Discern rule Result Comment: Resu lt = 0-14.9 mL/min/1.73 m2 Kidney failure or Dialysis Result = 15-29 mL/min/1.73 m2 Severe decrease in GFR Result = 30-59 mL/min/1.73 m2 Moderate decrease in GFR Result >= 60 mL/min/1.73 m2 Normal or increased GFR Performed By: #### F OL #### [address] [address] B12on 02-11-2020 Cobalamin (Vitamin B12) [Mass/Vol] 135 pg/mL Low 180-914 [facility] Comment on above: Order Comment: ok to add on to am labs per binu02/11/2020 12:08:01 EDT [facility] Performed By: #### T IBC #### [address] [address] CBCon 02-11-2020 Erythrocyte distribution width (RBC) [Ratio] 14.2 % Normal 11.6-14.8 [facility] Comment on above: Performed By: #### P HOS #### [address] [address] Hematocrit (Bld) [Volume fraction] 32.5 % Low 36.0-46.0 [facility] Comment on above: Performed By: #### P HOS #### [address] [address] Hemoglobin (Bld) [Mass/Vol] 10.6 g/dL Low 12.0-16.0 [facility] Comment on above: Performed By: #### P HOS #### [address] [address] MCH (RBC) [Entitic mass] 30.9 pg Normal 27.0-35.0 [facility] Comment on above: Performed By: #### P HOS #### [address] [address] MCHC (RBC) [Mass/Vol] 32.6 % Normal 31.0-37.0 [facility] Comment on above: Performed By: #### P HOS #### [address] [address] MCV (RBC) [Entitic vol] 94.6 fL Normal 80.0-100.0 [facility] Comment on above: Performed By: #### P HOS #### [address] [address] Platelet mean volume (Bld) [Entitic vol] 8.5 fL Normal 6.7-10.6 [facility] Comment on above: Performed By: #### P HOS #### [address] [address] Platelets (Bld) [#/Vol] 156 x10*3/mcL Normal 150-350 [facility] Comment on above: Performed By: #### P HOS #### [address] [address] RBC (Bld) [#/Vol] 3.44 x10*6/mcL Low 3.80-5.20 [facility] Comment on above: Performed By: #### P HOS #### [address] [address] WBC (Bld) [#/Vol] 11.3 x10*3/mcL High 4.5-11.0 [facility] Comment on above: Performed By: #### P HOS #### [address] [address] Ferritinon 02-11-2020 Ferritin [Mass/Vol] 75.8 ng/mL Normal 11.0-306.8 [facility] Comment on above: Performed By: #### T IBC #### [address] [address] Folate Lvlon 02-11-2020 Folate Lvl 4.0 ng/mL Low >=5.9 [facility] Comment on above: Result Comment: A [facility] O Technical Consultation has determined that deficient Folate concentrations are considered to be less than 4 ng/mL. Performed By: #### F OL #### [address] [address] Magnesiumon 02-11-2020 Magnesium [Mass/Vol] 1.6 mg/dL Low 1.7-2.4 [facility] Comment on above: Performed By: #### E GFR #### [address] [address] Nephrology Progress Noteon 0 02-11-2020 Nephrology Progress [...] mg, 1 mL, IV Push, q2min, PRN Sandpoint 5 mg-325 mg oral tablet, 1 tabs, [...] Dose: 02/11/20 14:00:00 EDT, Dispense From Location[facility] Electronically signed by Jeevan NIELSON Herberthdavid Hadley 02/11/20 20:[address] [facility] Orthopedic Progress Noteon 0 02-11-2020 Orthopedic [...] Date: 02/11/20 13:56:00 EDT, Dispense From Location: [facility], Prophylaxis- Pre/Post-Op enoxaparin, 30 mg, Subcutaneous, Injection, q24hr, First Dose: 02/11/20 13:00:00 EDT, Dispense From Location: [id number] hydrocodone-acetaminop hen, 1 tabs, Oral, Tab, q4hr, PRN moderate pain [4-6 on pain scale], First Dose: 02/10/20 13:57:00 EDT, Dispense From Location: [id number] sodium chloride, 10 mL, IV Push, Injection, As Indicated, PRN flush, First Dose: 02/10/20 14:05:00 EDT, Dispense From Location: [id number] Basic Metabolic Profile Below the Knee Graduated [...] Chele Jordan MD 02/11/20 09:[address] [facility] Progress Note - [employer] Progress Note [...] mg, 1 mL, IV Push, q2min, PRN Sandpoint 5 mg-325 mg oral tablet, 1 tabs, [...] by Sneha Martell 02/11/20 17:[address] [facility] Renal Panelon 02-11-2020 Albumin [Mass/Vol] 2.9 g/dL Low 3.2-4.9 [facility] Comment on above: Result Comment: [facility] Laboratory updated the methodology used for albumin testing on 05/04/18. Albumin measurement was performed using a bromcresol purple dye-binding assay. Performed By: #### F OL #### [address] [address] Anion gap [Moles/Vol] 12 mmol/L Normal 7-17 [facility] Comment on above: Performed By: #### F OL #### [address] [address] Calcium [Mass/Vol] 8.0 mg/dL Low 8.5-10.3 [facility] Comment on above: Performed By: #### F OL #### [address] [address] Chloride [Moles/Vol] 99 mmol/L Normal 98-110 [facility] Comment on above: Performed By: #### F OL #### [address] [address] CO2 [Moles/Vol] 25 mmol/L Normal 22-32 [facility] Comment on above: Performed By: #### F OL #### [address] [place] [address] Creatinine [Mass/Vol] 1.51 mg/dL High 0.44-1.03 [facility] Comment on above: Performed By: #### F OL #### [address] [place] [address] Glucose [Mass/Vol] 193 mg/dL High 70-99 [facility] Comment on above: Performed By: #### F OL #### [address] [address] Phosphate [Mass/Vol] 2.2 mg/dL Low 2.5-4.6 [facility] Comment on above: Performed By: #### F OL #### [address] [address] Potassium [Moles/Vol] 4.0 mmol/L Normal 3.4-4.8 [facility] Comment on above: Performed By: #### F OL #### [address] [address] Sodium [Moles/Vol] 132 mmol/L Low 133-142 [facility] Comment on above: Performed By: #### F OL #### [address] [address] Urea nitrogen [Mass/Vol] 29 mg/dL High 8-26 [facility] Comment on above: Performed By: #### F OL #### [address] [address] Urea nitrogen/Creatinine [Mass ratio] 19.2 mg/mg Normal 10.0-20.0 [facility] Comment on above: Performed By: #### F OL #### [address] [address] TIBCon 02-11-2020 Iron [Mass/Vol] 22 ug/dL Low 28-170 [facility] Comment on above: Performed By: #### T IBC #### [address] [address] Iron Sat 7.6 % Low >=16.0 [facility] Comment on above: Performed By: #### T IBC #### [address] [address] TIBC 288 mcg/dL Normal 261-478 [facility] Comment on above: Performed By: #### T IBC #### [address] [address] Transferrin [Mass/Vol] 193 mg/dL Normal 192-382 Bl [facility] Comment on above: Performed By: #### T IBC #### [address] [address] XR Femur 2 or More Views Lef [...] Electronically Signed in Other Vendor System) Normal [facility] .eGFRon 02-10-2020 eGFR Non-AA 26 mL/min/1.73m? Low >=60 [facility] Comment on above: Result Comment: Resu [...] dosing. Performed By: #### T IBC #### [address] [address] eGFR AA 31 mL/min/1.73m? Low >=60 [facility] Comment on above: Result Comment: Resu lt = 0-14.9 mL/min/1.73 m2 Kidney failure or Dialysis Result = 15-29 mL/min/1.73 m2 Severe decrease in GFR Result = 30-59 mL/min/1.73 m2 Moderate decrease in GFR Result >= 60 mL/min/1.73 m2 Normal or increased GFR Performed By: #### T IBC #### [address] [address] CBC w/ Diffon 02-10-2020 Erythrocyte distribution width (RBC) [Ratio] 14.8 % Normal 11.6-14.8 [facility] Comment on above: Performed By: #### P HOS #### [address] [address] Hematocrit (Bld) [Volume fraction] 38.8 % Normal 36.0-46.0 [facility] Comment on above: Performed By: #### P HOS #### [address] [address] Hemoglobin (Bld) [Mass/Vol] 12.4 g/dL Normal 12.0-16.0 [facility] Comment on above: Performed By: #### P HOS #### [address] [address] MCH (RBC) [Entitic mass] 30.0 pg Normal 27.0-35.0 [facility] Comment on above: Performed By: #### P HOS #### [address] [address] MCHC (RBC) [Mass/Vol] 32.1 % Normal 31.0-37.0 [facility] Comment on above: Performed By: #### P HOS #### [address] [address] MCV (RBC) [Entitic vol] 93.5 fL Normal 80.0-100.0 [facility] Comment on above: Performed By: #### P HOS #### [address] [address] Platelet mean volume (Bld) [Entitic vol] 8.2 fL Normal 6.7-10.6 [facility] Comment on above: Performed By: #### P HOS #### [address] [address] Platelets (Bld) [#/Vol] 198 x10*3/mcL Normal 150-350 [facility] Comment on above: Performed By: #### P HOS #### [address] [address] RBC (Bld) [#/Vol] 4.15 x10*6/mcL Normal 3.80-5.20 [facility] Comment on above: Performed By: #### P HOS #### [address] [address] WBC (Bld) [#/Vol] 11.1 x10*3/mcL High 4.5-11.0 [facility] Comment on above: Performed By: #### P HOS #### [address] [address] CMPon 02-10-2020 Albumin [Mass/Vol] 3.7 g/dL Normal 3.2-4.9 [facility] Comment on above: Result Comment: [facility] updated the methodology used for albumin testing on 05/04/18. Albumin measurement was performed using a bromcresol purple dye-binding assay. Performed By: #### T IBC #### [address] [address] Albumin/Globulin [Mass ratio] 1.3 {ratio} Normal 1.1-2.2 [facility] Comment on above: Performed By: #### T IBC #### [address] [address] Alk Phos 89 IU/L Normal 32-91 [facility] Comment on above: Performed By: #### T IBC #### [address] [address] ALT [Catalytic activity/Vol] 20 U/L Normal 14-54 [facility] Comment on above: Performed By: #### T IBC #### [address] [address] Anion gap [Moles/Vol] 17 mmol/L Normal 7-17 [facility] Comment on above: Performed By: #### T IBC #### [facility] [address] [place] [address] AST [Catalytic activity/Vol] 21 U/L Normal 15-41 [facility] Comment on above: Performed By: #### T IBC #### [address] [address] Bili Total 0.9 mg/dL Normal 0.3-1.2 [facility] Comment on above: Performed By: #### T IBC #### [facility] [address] [place] [address] Calcium [Mass/Vol] 8.8 mg/dL Normal 8.5-10.3 [facility] Comment on above: Performed By: #### T IBC #### [address] [address] Chloride [Moles/Vol] 102 mmol/L Normal 98-110 [facility] Comment on above: Performed By: #### T IBC #### [facility] [address] [place] [address] CO2 [Moles/Vol] 24 mmol/L Normal 22-32 [facility] Comment on above: Performed By: #### T IBC #### [address] [address] Creatinine [Mass/Vol] 1.87 mg/dL High 0.44-1.03 [facility] Comment on above: Performed By: #### T IBC #### [address] [place] [address] Glucose [Mass/Vol] 111 mg/dL High 70-99 [facility] Comment on above: Performed By: #### T IBC #### [address] [address] Potassium [Moles/Vol] 5.2 mmol/L High 3.4-4.8 [facility] Comment on above: Performed By: #### T IBC #### [address] [address] Protein [Mass/Vol] 6.6 g/dL Normal 6.5-8.1 [facility] Comment on above: Performed By: #### T IBC #### [address] [address] Sodium [Moles/Vol] 138 mmol/L Normal 133-142 [facility] Comment on above: Performed By: #### T IBC #### [address] [address] Urea nitrogen [Mass/Vol] 41 mg/dL High 8-26 [facility] Comment on above: Performed By: #### T IBC #### [address] [address] Urea nitrogen/Creatinine [Mass ratio] 21.9 mg/mg High 10.0-20.0 [facility] Comment on above: Performed By: #### T IBC #### [address] [address] Diff Autoon 02-10-2020 Baso Absolute 0.0 x10*3/mcL Normal 0.0-0.2 [facility] Comment on above: Performed By: #### T IBC #### [address] [address] Basophils/100 WBC (Bld) 0.2 % Normal 0.0-1.5 [facility] Comment on above: Performed By: #### T IBC #### [address] [address] Eos Absolute 0.0 x10*3/mcL Normal 0.0-0.4 [facility] Comment on above: Performed By: #### T IBC #### [address] [address] Eosinophils/100 WBC (Bld) 0.0 % Normal 0.0-5.4 [facility] Comment on above: Performed By: #### T IBC #### [address] [address] Lymphocytes (Bld) [#/Vol] 1.2 x10*3/mcL Normal 1.0-4.8 [facility] Comment on above: Performed By: #### T IBC #### [address] [address] Lymphocytes/100 WBC (Bld) 10.7 % Low 27.2-40.8 [facility] Comment on above: Performed By: #### T IBC #### [address] [address] [place] Absolute 1.2 x10*3/mcL High 0.1-1.1 [facility] Comment on above: Performed By: #### T IBC #### [address] [address] Monocytes/100 WBC (Bld) 10.7 % Normal 3.7-11.9 [facility] Comment on above: Performed By: #### T IBC #### [address] [address] Neutro Absolute 8.7 x10*3/mcL High 1.8-7.7 [facility] Comment on above: Performed By: #### T IBC #### [address] [address] Neutro Auto 78.4 % High 47.2-70.8 [facility] Comment on above: Performed By: #### T IBC #### [address] [address] Magnesiumon 02-10-2020 Magnesium [Mass/Vol] 2.0 mg/dL Normal 1.7-2.4 [facility] Comment on above: Performed By: #### M G #### [address] [address] Nephrology Consultationon Nephrology Consultation Reason for Consultation [...] activation of EMS. Patient was taken to [facility] ER where she had some scans performed and was found to she had sustained a left intertrochanteric fracture. She was subsequently transferred to [facility] where she has been seen by Dr. Jordan and at time of examination , she is back from her surgery. She denies having any significant pain, she did report some discomfort, she denies having any chest pain, denies any arrhythmia, denies any fever or chills, nausea or vomiting. being managed from [facility] emergency department for left intertrochanteric hip [...] Dose: 02/10/20 22:00:00 EDT, Dispense From Location: [facility] Magnesium Level Phosphorus Level Renal Function Panel [...] Mo/We/Fr ceFAZolin Dextrose 5% with 0.45% NaCl 1,000 mL, 1000 mL, IV hydrALAZINE, 50 mg, Oral, TID HYDROmorphone, 0.5 mg, 0.5 mL, IV Push, q2hr, PRN Lovenox, 30 mg, 0.3 mL, Subcutaneous, q24hr meclizine, 25 mg, Oral, TID, PRN naloxone, 0.4 mg, 1 mL, IV Push, q2min, PRN Sandpoint 5 mg-325 mg oral tablet, 1 tabs, [...] (FEBRUARY 09) Electronically signed by Dilan Chew DObenito 02/10/20 23:[address] [facility] Operative Reporton 0 Operative Report Indication for Surge ry Patient is an 84-year-old with a left hip fracture. Treatment options were discussed with her as well as risks and benefits and she elected to proceed with surgery. 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 Orthopedic Consultationon Orthopedic Consultation Reason for Consultation Left hip fracture History of Present Illness Patient was walking yesterday when she lost her balance and fell on to her left hip with pain and inability to bear weight. She presented to [facility] where xrays revealed a left hip fracture. Patient was transferred to [facility] for treatment of this injury. Patient denies [...] Chele Jordan MD 02/10/20 12:[address] [facility] Pharmacy Progress Noteon Pharmacy Progress Note [...] by Karen Uriarte 02/10/20 18:[address] [facility] Phosphoruson 02-10-2020 Phosphate [Mass/Vol] 3.8 mg/dL Normal 2.5-4.6 [facility] Comment on above: Performed By: #### P HOS #### [facility] [address] [place] [address] Progress Note - [employer] Progress Note - [...] mg, 1 mL, IV Push, q2min, PRN Sandpoint 5 mg-325 mg oral tablet, 1 tabs, [...] she is not - Reported creatinine at [facility] was 2.42, creatinine significantly improved today at [...] by Sneha Martell 02/10/20 16:[address] [facility] APTTon 02-09-2020 aPTT Coag (Bld) [Time] 27.1 s [place], [place] CBC Auto Differentialon 01-25 Basophils (Bld) [#/Vol] 10*3/uL [place] Basophils/100 WBC (Bld) 0 % 0 - 2 % [place] Differential Type NOT REPORTED [place] Eosinophils (Bld) [#/Vol] 0.10 10*3/uL [place] Eosinophils/100 WBC (Bld) 1 % 1 - 4 % [place] Erythrocyte distribution width (RBC) [Ratio] 14.0 % 11.8 - 14.4 % [place] Hematocrit (Bld) [Volume fraction] 41.9 % 36.3 - 47.1 % [place] Hemoglobin (Bld) [Mass/Vol] 13.0 g/dL 11.9 - 15.1 g/dL [place] Immature granulocytes (Bld) [#/Vol] 0 % 0 [place] Immature granulocytes (Bld) [#/Vol] 10*3/uL [place] Lymphocytes (Bld) [#/Vol] 2.13 10*3/uL [place] Lymphocytes/100 WBC (Bld) 26 % 24 - 43 % [place] MCH (RBC) [Entitic mass] 30.1 pg 25.2 - 33.5 pg [place] MCHC (RBC) [Mass/Vol] 31.0 g/dL 28.4 - 34.8 g/dL [place] MCV (RBC) [Entitic vol] 97.0 fL 82.6 - 102.9 fL [place] Monocytes (Bld) [#/Vol] 0.78 10*3/uL [place] Monocytes/100 WBC (Bld) 10 % 3 - 12 % [place] Platelet mean volume (Bld) [Entitic vol] 10.7 fL 8.1 - 13.5 fL [place] Platelets (Bld) [#/Vol] NOT REPORTED [place] Platelets (Bld) [#/Vol] 197 10*3/uL [place] RBC (Bld) [#/Vol] 4.32 10*6/uL 3.95 - 5.1 1 m/uL [place] RBC morphology finding Nom (Bld) NOT REPORTED [place] Segmented neutrophils/100 WBC (Bld) 63 % 36 - 65 % [place] Segs Absolute 5.15 [place] WBC (Bld) [#/Vol] 0.0 10*3/uL 0.0 per 10 0 WBC [place] WBC (Bld) [#/Vol] 8.2 10*3/uL [place] WBC Morphology NOT REPORTED [place] CT CERVICAL SPINE WO CONTRAS Ton 02-09-2020 [place], [facility] Incoming Radiant Results From [email or web address] - 02/09/2020 12:08 PM EDT EXAMINATION: CT [...] with left bony foraminal narrowing at C5-6. [place] EXAMINATION: CT OF T HE CERVICAL [...] The lung apices are without acute process. [place] No acute fracture or malalignment of the cervical spine. Multilevel degenerative disc disease with associated uncovertebral and facet hypertrophy with left bony foraminal narrowing at C5-6. [place], [place] CT Head WO Contraston 2019 [place], [facility] Incoming Radiant Results From [email or web address] - 02/09/2020 11:56 AM EDT EXAMINATION: CT [...] acute CT abnormality identified in the brain. [place] EXAMINATION: CT OF T HE HEAD [...] left posterosuperior scalp injury. No underlying fracture. [place] Left posterosuperior scalp injury without underlying fracture. No acute CT abnormality identified in the brain. [place] Comprehensive Metabolic Pane l w/ Reflex to MGon 02-09-2020 Albumin [Mass/Vol] 4.2 g/dL 3.5 - 5.2 g/dL [place] Albumin/Globulin [Mass ratio] 1.6 {ratio} [place] ALP [Catalytic activity/Vol] 97 U/L 35 - 104 U/L [place] ALT [Catalytic activity/Vol] 16 U/L 5 - 33 U/L [place] Anion gap [Moles/Vol] 16 mmol/L 9 - 17 mmol/L [place] AST [Catalytic activity/Vol] 19 U/L <32 [place] Bilirubin Ql (U) 0.38 mg/dL 0.3 - 1.2 mg/dL [place] Bun/Cre Ratio 18 [place] Calcium [Mass/Vol] 9.3 mg/dL 8.6 - 10. 4 mg/dL [place] Chloride [Moles/Vol] 102 mmol/L 98 - 10 7 mmol/L [place] CO2 [Moles/Vol] 23 mmol/L 20 - 31 mmol/L [place] Creatinine [Mass/Vol] 2.42 mg/dL High 0.5 - 0.9 mg/dL [place] GFR 23 mL/min Low >60 [place] GFR Non- 19 mL/min Low >60 [place] Glucose [Mass/Vol] 132 mg/dL High 70 - 99 mg/dL [place] Interpretation and review of laboratory results Abnormal [place] Potassium [Moles/Vol] 4.5 mmol/L 3.7 - 5.3 mmol/L [place] Protein [Mass/Vol] 6.8 g/dL 6.4 - 8.3 g/dL [place] Sodium [Moles/Vol] 141 mmol/L 135 - 144 mmol/L [place] Urea nitrogen [Mass/Vol] 43 mg/dL High 8 - 23 mg/dL [place] History and Physicalon 02-08 History and Physical Chief Complaint Fall with left hip fracture. History of Present Illness Patient is a 84-year-old female being managed from [facility] emergency emergency department for left intertrochanteric hip [...] and oriented, well nourished, no acute distress. [place] Eye: PERRL, EOMI, normal conjunctiva. HENT: Normocephalic, [...] hours as needed for nausea. director of cardiopulmonary services consult for discharge planning. 2. Fall See #1. 3. Laceration of head Scabbed. 4. Hypertension Continue hydrochlorothiazide and verapamil. 5. ESRD on dialysis Creatine in [place] was 2.42 Consult nephrology in the morning. 6. Hyperlipidemia Continue pravastatin. Medical Necessity for the hospitilization: Left intertrochanteric hip Fracture Complication Risk: Debility and . Activity at baseline: Independent Anticipated Discharge Location: senior care facility Anticipated Discharge Date: Likely greater than [...] qualifying data available. Electronically signed by Modesta CASTRO-KENISHAAnshul Alan 02/09/20 18:[address] [facility] Metabolic Panelon 02-09-2020 GFR/1.73 sq M predicted among non-blacks MDRD (S/P/Bld) [Vol rate/Area] [facility], [place] Comment on above: Average GFR for 70 o r more years old: 75 mL/min/1.73sq m Chronic Kidney Disease: <60 mL/min/1.73sq m Kidney failure: <15 mL/min/1.73sq m eGFR calculated using average adult body mass. Additional eGFR calculator available at: http://www.[employer]/multiple_crcl_2012.htm Stage 1: Some kidney damage normal GFR [...] by Fer Bautista 02/09/20 22:[address] [facility] Protime-INRon 02-09-2020 INR Coag (PPP) [Relative time] 1.0 {INR} [facility], [place] PT Coag (PPP) [Time] 10.7 s [facility], [place] XR CHEST PORTABLEon 02-09-20 20 Dam[place], Mhpn Incoming Radiant Results From [email or web address] - 02/09/2020 11:50 AM EDT EXAMINATION: ONE XRAY VIEW OF THE CHEST 02/09/2020 11:43 am COMPARISON: 09/27/2017 HISTORY: ORDERING SYSTEM PROVIDED HISTORY: for admission TECHNOLOGIST PROVIDED HISTORY: for admission FINDINGS: The lungs are without acute focal process. There is no effusion or pneumothorax. The cardiomediastinal silhouette is stable. The osseous structures are stable. IMPRESSION: No acute process. [facility] [place] No acute process. [facility] [place] EXAMINATION: ONE XRA Y VIEW OF THE CHEST 02/09/2020 11:43 am COMPARISON: 09/27/2017 HISTORY: ORDERING SYSTEM PROVIDED HISTORY: for admission TECHNOLOGIST PROVIDED HISTORY: for admission FINDINGS: The lungs are without acute focal process. There is no effusion or pneumothorax. The cardiomediastinal silhouette is stable. The osseous structures are stable. [facility]W W PELVIS LEFTo n 02-09-2020 Intertrochanteric le ft hip fracture. [facility] [place] Damion, Mhpn Incoming Radiant Results From [email or web address] - 02/09/2020 3:31 PM EDT EXAMINATION: ONE [...] vascular calcifications. IMPRESSION: Intertrochanteric left hip fracture. [facility] [place] EXAMINATION: ONE XRA Y VIEW OF THE [...] within the acetabulum. There are vascular calcifications. [place], [place] CBCon 02-02-2020 Erythrocyte distribution width (RBC) [Ratio] 14.1 % 11.8 - 14.4 % [place] Hematocrit (Bld) [Volume fraction] 44.3 % 36.3 - 47.1 % [place] Hemoglobin (Bld) [Mass/Vol] 13.4 g/dL 11.9 - 15.1 g/dL [place] MCH (RBC) [Entitic mass] 30.2 pg 25.2 - 33.5 pg [place] MCHC (RBC) [Mass/Vol] 30.2 g/dL 28.4 - 34.8 g/dL [place] MCV (RBC) [Entitic vol] 100.0 fL 82.6 - 102.9 fL [place] Platelet mean volume (Bld) [Entitic vol] 10.6 fL 8.1 - 13.5 fL [place] Platelets (Bld) [#/Vol] 231 10*3/uL [place] RBC (Bld) [#/Vol] 4.43 10*6/uL 3.95 - 5.1 1 m/uL [place] WBC (Bld) [#/Vol] 8.8 10*3/uL [place] WBC (Bld) [#/Vol] 0.0 10*3/uL 0.0 per 10 0 WBC [place] Creatinine, Random Urineon 0 02-02-2020 Creatinine, Ur 148.3 mg/dL 28 - 217 mg/dL [place] Magnesiumon 02-02-2020 Magnesium [Mass/Vol] 2.0 mg/dL 1.6 - 2 .6 mg/dL [place] Metabolic Panelon 02-02-2020 GFR/1.73 sq M predicted among non-blacks MDRD (S/P/Bld) [Vol rate/Area] [place], [place] Comment on above: Stage 1: Some [...] body mass. Additional eGFR calculator available at: http://www.[employer]/multiple_crcl_2012.htm PTH, [place] 02-02-2020 Interpretation and review of laboratory results Abnormal [place] Pth Intact 103.6 pg/mL High 15 - 65 pg/mL [place] Comment on above: SAMPLES FROM PATIENT S ROUTINELY RECEIVING HIGH DOSE BIOTIN THERAPY MAY SHOW FALSELY DEPRESSED RESULTS. ADDITIONAL INFORMATION MAY BE REQUIRED FOR DIAGNOSIS. Protein, urine, randomon Protein (U) [Mass/Vol] 21 mg/dL [place] Comment on above: No normal range esta blished. Renal Function Panelon 02-01 Albumin [Mass/Vol] 4.6 g/dL 3.5 - 5.2 g/dL [place] Anion gap [Moles/Vol] 15 mmol/L 9 - 17 mmol/L [place] Bun/Cre Ratio 17 [place] Calcium [Mass/Vol] 9.9 mg/dL 8.6 - 10. 4 mg/dL [place] Chloride [Moles/Vol] 102 mmol/L 98 - 10 7 mmol/L [place] CO2 [Moles/Vol] 23 mmol/L 20 - 31 mmol/L [place] Creatinine [Mass/Vol] 1.69 mg/dL High 0.5 - 0.9 mg/dL [place] GFR 35 mL/min Low >60 [place] GFR Non- 29 mL/min Low >60 [place] Glucose [Mass/Vol] 120 mg/dL High 70 - 99 mg/dL [place] Interpretation and review of laboratory results Abnormal [place] Phosphate [Mass/Vol] 2.7 mg/dL 2.6 - 4 .5 mg/dL [place] Potassium [Moles/Vol] 4.0 mmol/L 3.7 - 5.3 mmol/L [place] Sodium [Moles/Vol] 140 mmol/L 135 - 144 mmol/L [place] Urea nitrogen [Mass/Vol] 28 mg/dL High 8 - 23 mg/dL [place] Uric Acidon 02-02-2020 Urate [Mass/Vol] 5.5 mg/dL 2.4 - 5.7 mg/dL [place] Urinalysis with Microscopico n 02-02-2020 Amorphous, UA NOT REPORTED None [place] Bacteria, UA 3+ Abnormal None [place] Bilirubin Urine Negative NEGATIVE [place] Casts UA NOT REPORTED /LPF [place] Color, UA YELLOW YELLOW [place] Crystals, UA NOT REPORTED None /HPF [place] Epithelial Cells UA 10 TO 20 [place] Glucose, Ur Negative NEGATIVE [place] Interpretation and review of laboratory results Abnormal [place] Ketones Ql (U) Negative NEGATIVE [place] Leukocyte esterase Test strip Ql (U) Negative NEGATIVE [place] Mucus, UA NOT REPORTED None [place] Nitrite, Urine Positive Abnormal NEGATIVE [place] Other Observations UA NOT REPORTED NOT REQ. [place] pH, UA 5.5 [place] Protein (U) [Mass/Vol] Negative NEGATIVE [place] RBC (U) [#/Vol] None [place] Renal Epithelial, UA NOT REPORTED 0 /HPF [place] Specific [place], UA 1.020 [place] Trichomonas, UA NOT REPORTED None [place] Turbidity UA CLEAR CLEAR [place] Urinalysis Comments NOT REPORTED [place] Urine Hgb Negative NEGATIVE [place] Urobilinogen, Urine Normal Normal [place] WBC, UA 2 TO 5 [place] Yeast, UA NOT REPORTED None [place] - [place] CBCon 10-30-2019 Erythrocyte distribution width (RBC) [Ratio] 12.9 % 11.8 - 14.4 % [employer] Phone: Hematocrit (Bld) [Volume fraction] 42.8 % 36.3 - 47.1 % [employer] Phone: Hemoglobin (Bld) [Mass/Vol] 12.9 g/dL 11.9 - 15.1 g/dL [employer] Phone: MCH (RBC) [Entitic mass] 30.8 pg 25.2 - 33.5 pg [employer] Phone: MCHC (RBC) [Mass/Vol] 30.1 g/dL 28.4 - 34.8 g/dL [employer] Phone: MCV (RBC) [Entitic vol] 102.1 fL 82.6 - 102.9 fL [employer] Phone: Platelet mean volume (Bld) [Entitic vol] 11.0 fL 8.1 - 13.5 fL [employer] Phone: Platelets (Bld) [#/Vol] 210 10*3/uL [employer] Phone: RBC (Bld) [#/Vol] 4.19 10*6/uL 3.95 - 5.1 1 m/uL [employer] Phone: WBC (Bld) [#/Vol] 7.9 10*3/uL [employer] Phone: WBC (Bld) [#/Vol] 0.0 10*3/uL 0.0 per 10 0 WBC [employer] Phone: Creatinine, Random Urineon 0 10-30-2019 Creatinine, Ur 173.2 mg/dL 28 - 217 mg/dL [employer] Phone: Magnesiumon 10-30-2019 Magnesium [Mass/Vol] 2.2 mg/dL 1.6 - 2 .6 mg/dL [employer] Phone: Metabolic Panelon 10-30-2019 GFR/1.73 sq M predicted among non-blacks MDRD (S/P/Bld) [Vol rate/Area] [employer] Phone: Comment on above: Average GFR for 70 o r more years old: 75 mL/min/1.73sq m Chronic Kidney Disease: <60 mL/min/1.73sq m Kidney failure: <15 mL/min/1.73sq m eGFR calculated using average adult body mass. Additional eGFR calculator available at: http://www.[employer]/multiple_crcl_2012.htm Stage 1: Some kidney damage normal GFR Stage 2: Mild kidney damage GFR 60-89 Stage 3: Moderate kidney damage GFR 30-59 Stage 4: Severe kidney damage GFR 15-29 Stage 5: Severe kidney damage GFR <15 ESRD - chronic treatment by dialysis or transplant PTH, [place] 10-30-2019 Interpretation and review of laboratory results Abnormal [employer] Phone: Pth Intact 121.6 pg/mL High 15 - 65 pg/mL [employer] Phone: Comment on above: SAMPLES FROM PATIENT S ROUTINELY RECEIVING HIGH DOSE BIOTIN THERAPY MAY SHOW FALSELY DEPRESSED RESULTS. ADDITIONAL INFORMATION MAY BE REQUIRED FOR DIAGNOSIS. Protein, urine, randomon Protein (U) [Mass/Vol] 22 mg/dL [facility]: Comment on above: No normal range esta blished. Renal Function Panelon 10-30 Albumin [Mass/Vol] 4.4 g/dL 3.5 - 5.2 g/dL [employer] Phone: Anion gap [Moles/Vol] 13 mmol/L 9 - 17 mmol/L [employer] Phone: Bun/Cre Ratio 17 [employer] Phone: Calcium [Mass/Vol] 9.6 mg/dL 8.6 - 10. 4 mg/dL [employer] Phone: Chloride [Moles/Vol] 105 mmol/L 98 - 10 7 mmol/L [employer] Phone: CO2 [Moles/Vol] 25 mmol/L 20 - 31 mmol/L [employer] Phone: Creatinine [Mass/Vol] 1.72 mg/dL High 0.5 - 0.9 mg/dL [employer] Phone: GFR 34 mL/min Low >60 [employer] Phone: GFR Non- 28 mL/min Low >60 [employer] Phone: Glucose [Mass/Vol] 122 mg/dL High 70 - 99 mg/dL [employer] Phone: Interpretation and review of laboratory results Abnormal [employer] Phone: Phosphate [Mass/Vol] 3.5 mg/dL 2.6 - 4 .5 mg/dL [employer] Phone: Potassium [Moles/Vol] 4.7 mmol/L 3.7 - 5.3 mmol/L [employer] Phone: Sodium [Moles/Vol] 143 mmol/L 135 - 144 mmol/L [employer] Phone: Urea nitrogen [Mass/Vol] 30 mg/dL High 8 - 23 mg/dL [employer] Phone: Uric Acidon 10-30-2019 Urate [Mass/Vol] 5.2 mg/dL 2.4 - 5.7 mg/dL [employer] Phone: Urinalysis with Microscopico n 10-30-2019 Amorphous, UA NOT REPORTED None [employer] Phone: Bacteria, UA 3+ Abnormal None [employer] Phone: Bilirubin Urine Negative NEGATIVE [facility] Work Phone: Casts UA NOT REPORTED /LPF [employer] Work Phone: Color, UA YELLOW YELLOW [employer] Work Phone: Crystals UA NOT REPORTED None /HPF [facility] Work Phone: Epithelial Cells UA 10 TO 20 [employer] Work Phone: Glucose, Ur Negative NEGATIVE [facility] Work Phone: Interpretation and review of laboratory results Abnormal [employer] Work Phone: Ketones Ql (U) Negative NEGATIVE [facility] Work Phone: Leukocyte esterase Test strip Ql (U) TRACE Abnormal NEGATIVE [employer] Phone: Mucus, UA NOT REPORTED None [facility] Work Phone: Nitrite, Urine Negative NEGATIVE [employer] Work Phone: Other Observations UA NOT REPORTED NOT REQ. [facility] Work Phone: pH, UA 5.0 [facility] Work Phone: Protein (U) [Mass/Vol] Negative NEGATIVE [facility] Work Phone: RBC (U) [#/Vol] 0 TO 2 [facility] Work Phone: Renal Epithelial, Urine NOT REPORTED 0 /HPF [employer] Work Phone: Specific [place], UA 1.020 [employer] Work Phone: Trichomonas, UA NOT REPORTED None [facility] [employer] Work Phone: Turbidity UA SLIGHTLY CLOUDY Abnormal CLEAR [employer] Work Phone: Urinalysis Comments NOT REPORTED [employer] Work Phone: Urine Hgb Negative NEGATIVE [employer] Phone: Urobilinogen, Urine Normal Normal [employer] Phone: WBC, UA 5 TO 10 [employer] Phone: Yeast, UA NOT REPORTED None [employer] Phone: - [employer] Phone: CBCon 08-11-2019 Erythrocyte distribution width (RBC) [Ratio] 13.8 % 11.8 - 14.4 % [place] Hematocrit (Bld) [Volume fraction] 40.5 % 36.3 - 47.1 % [place] Hemoglobin (Bld) [Mass/Vol] 12.5 g/dL 11.9 - 15.1 g/dL [place] MCH (RBC) [Entitic mass] 30.9 pg 25.2 - 33.5 pg [place] MCHC (RBC) [Mass/Vol] 30.9 g/dL 28.4 - 34.8 g/dL [place] MCV (RBC) [Entitic vol] 100.2 fL 82.6 - 102.9 fL [place] Platelet mean volume (Bld) [Entitic vol] 10.5 fL 8.1 - 13.5 fL [place] Platelets (Bld) [#/Vol] 245 10*3/uL [place] RBC (Bld) [#/Vol] 4.04 10*6/uL 3.95 - 5.1 1 m/uL [place] WBC (Bld) [#/Vol] 7.1 10*3/uL [place] WBC (Bld) [#/Vol] 0.0 10*3/uL 0.0 per 10 0 WBC [place] Creatinine Clearanceon 08-11 Creatinine [Mass/Vol] 54.7 mg/dL 28 - 2 17 mg/dL [place] Creatinine [Mass/Vol] 1.8 mg/dL High 0.5 - 0.9 mg/dL [place] Creatinine Clearance 25.8 [place] Interpretation and review of laboratory results Abnormal [place] Length Of Collection 24 h [place] Patient Height 155 cm [place] Volume 1175 mL [place] Creatinine, Random Urineon 10-11-2018 Creatinine, Ur 18.5 mg/dL Low 28 - 217 mg/dL [place] Interpretation and review of laboratory results Abnormal [place] Magnesiumon 08-11-2019 Magnesium [Mass/Vol] 1.9 mg/dL 1.6 - 2 .6 mg/dL [place] Metabolic Panelon 08-11-2019 GFR/1.73 sq M predicted among non-blacks MDRD (S/P/Bld) [Vol rate/Area] [place] Comment on above: Average GFR for 70 o r more years old: 75 mL/min/1.73sq m Chronic Kidney Disease: <60 mL/min/1.73sq m Kidney failure: <15 mL/min/1.73sq m eGFR calculated using average adult body mass. Additional eGFR calculator available at: http://www.[employer]/multiple_crcl_2012.htm Stage 1: Some kidney damage normal GFR Stage 2: Mild kidney damage GFR 60-89 Stage 3: Moderate kidney damage GFR 30-59 Stage 4: Severe kidney damage GFR 15-29 Stage 5: Severe kidney damage GFR <15 ESRD - chronic treatment by dialysis or transplant PTH, [place] 08-11-2019 Interpretation and review of laboratory results Abnormal [place] Pth Intact 99.15 pg/mL High 15 - 65 pg/mL [place] Comment on above: SAMPLES FROM PATIENT S ROUTINELY RECEIVING HIGH DOSE BIOTIN THERAPY MAY SHOW FALSELY DEPRESSED RESULTS. ADDITIONAL INFORMATION MAY BE REQUIRED FOR DIAGNOSIS. Protein, urine, randomon Protein (U) [Mass/Vol] mg/dL mg/dL [place] Comment on above: No normal range esta blished. Protein, urine, timedon 07-28 Hours Collected 24 h [place] Protein (U) [Mass/Vol] 5 mg/dL [place], [place] Volume 1175 mL [place] Comment on above: CORRECTED ON 08/11 A T 1745: PREVIOUSLY REPORTED 1175 ML Renal Function Panelon 08-11 Albumin [Mass/Vol] 4.3 g/dL 3.5 - 5.2 g/dL [place] Anion gap [Moles/Vol] 15 mmol/L 9 - 17 mmol/L [place] Bun/Cre Ratio 16 [place] Calcium [Mass/Vol] 9.2 mg/dL 8.6 - 10. 4 mg/dL [place] Chloride [Moles/Vol] 100 mmol/L 98 - 10 7 mmol/L [place] CO2 [Moles/Vol] 22 mmol/L 20 - 31 mmol/L [place] Creatinine [Mass/Vol] 1.8 mg/dL High 0.5 - 0.9 mg/dL [place] GFR 33 mL/min Low >60 [place] GFR Non- 27 mL/min Low >60 [place] Glucose [Mass/Vol] 110 mg/dL High 70 - 99 mg/dL [place] Interpretation and review of laboratory results Abnormal [place] Phosphate [Mass/Vol] 2.8 mg/dL 2.6 - 4 .5 mg/dL [place] Potassium [Moles/Vol] 4.1 mmol/L 3.7 - 5.3 mmol/L [place] Sodium [Moles/Vol] 137 mmol/L 135 - 144 mmol/L [place] Urea nitrogen [Mass/Vol] 29 mg/dL High 8 - 23 mg/dL [place] TSH without Reflexon 019 TSH Qn 3.22 m[IU]/L [place] RENAL COMPLETEon 08-11-20 19 1. [...] CT for confirmation of the above findings. [place] EXAMINATION: RETROPERITONEAL ULTRASOUND OF THE KIDNEYS AND URINARY BLADDER 08/11/2019 COMPARISON: None HISTORY: ORDERING SYSTEM PROVIDED HISTORY: Chronic kidney disease, stage IV (severe) ([facility]) FINDINGS: Kidneys: Suboptimal evaluation due to [...] the bladder. No significant post void residual. [place], M[facility]pn Incoming Radiant Results From [email or web address] - 08/11/2019 12:53 PM EST EXAMINATION: RETROPERITONEAL ULTRASOUND OF THE KIDNEYS AND URINARY BLADDER 08/11/2019 COMPARISON: None HISTORY: ORDERING SYSTEM PROVIDED HISTORY: Chronic kidney disease, stage IV (severe) ([facility]) FINDINGS: Kidneys: Suboptimal evaluation due to [...] CT for confirmation of the above findings. [place] Uric Acidon 08-11-2019 Urate [Mass/Vol] 5.4 mg/dL 2.4 - 5.7 mg/dL [place] Urinalysison 08-11-2019 Protein (U) [Mass/Vol] NOT REPORTED mg/X h [place] Urinalysis with Microscopico n 08-11-2019 Amorphous, UA NOT REPORTED None [place] Bacteria, UA TRACE Abnormal None [place] Bilirubin Urine Negative NEGATIVE [place] Casts UA NOT REPORTED /LPF [place] Color, UA YELLOW YELLOW [place] Crystals UA NOT REPORTED None /HPF [place] Epithelial Cells UA 0 TO 2 [place] Glucose, Ur Negative NEGATIVE [place] Interpretation and review of laboratory results Abnormal [place] Ketones Ql (U) Negative NEGATIVE [place] Leukocyte esterase Test strip Ql (U) Negative NEGATIVE [place] Mucus, UA NOT REPORTED None [place] Nitrite, Urine Negative NEGATIVE [place] Other Observations UA NOT REPORTED NOT REQ. [place] pH, UA 5.5 [place] Protein (U) [Mass/Vol] Negative NEGATIVE [place] RBC (U) [#/Vol] 0 TO 2 [place] Renal Epithelial, Urine NOT REPORTED 0 /HPF [place] Specific [place], UA <1.005 Low [place] Trichomonas, UA NOT REPORTED None [place] Turbidity UA CLEAR CLEAR [place] Urinalysis Comments NOT REPORTED [place] Urine Hgb Negative NEGATIVE [place] Urobilinogen, Urine Normal Normal [place] WBC, UA 0 TO 2 [place] Yeast, UA NOT REPORTED None [place] Vitamin B12 & Folateon 08-11 Cobalamin (Vitamin B12) [Mass/Vol] 391 pg/mL 232 - 1245 pg/mL [place] Folate 7.7 ng/mL >4.8 [place] Vital Signs Date Time Vital Sign Value Performing Clinician Facility 09-09-2023 13:00-0500 Diastolic blood pressure 88 mm[Hg] Brina Cordero Other Located Within [facility] [employer] Other 09-09-2023 13:00-0500 Respiratory rate 12 /min Brina Cordero Other [facility] Other 09-09-2023 13:00-0500 Systolic blood pressure 132 mm[Hg] Brina Cordero Other Located Within [facility] [employer] Other 08-31-2023 22:45-0500 Diastolic blood pressure 94 mm[Hg] MD Destiny Irwin Work Phone: [facility] 08-31-2023 22:45-0500 Heart rate 89 /min MD Destiny Irwin Work Phone: [facility] 08-31-2023 22:45-0500 Respiratory rate 18 /min MD Destiny Irwin Work Phone: [facility] 08-31-2023 22:45-0500 SaO2% (BldA) [Mass fraction] 97 % MD Destiny Irwin Work Phone: [facility] 08-31-2023 22:45-0500 Systolic blood pressure 165 mm[Hg] MD Destiny Irwin Work Phone: [facility] 08-31-2023 18:28-0500 Body height 154.94 cm MD Destiny Irwin Work Phone: [facility] 08-31-2023 18:28-0500 Body weight 59.87 kg MD Destiny Irwin Work Phone: [facility] 08-31-2023 18:27-0500 Body temperature 98.2 [degF] MD Destiny Irwin Work Phone: [facility] 06-11-2023 13:00-0400 Diastolic blood pressure 72 mm[Hg] Brina Cordero Other [facility] Other 06-11-2023 13:00-0400 Respiratory rate 12 /min Brina Roxie Other [facility] Other 06-11-2023 13:00-0400 Systolic blood pressure 178 mm[Hg] Brina Roxie Other [facility] Other 09-12-2020 11:04-0500 BP Diastolic 63 mm[Hg] [facility] [place] [facility] [place] Comment on above: 2nd reading 09-12-2020 11:04-0500 BP Systolic 139 mm[Hg] [facility] [place] [facility] [place] Comment on above: 2nd reading 09-12-2020 11:04-0500 Pulse (Heart Rate) 65 /min [facility] [place] 09-12-2020 11:02-0500 Body Temperature 96.1 [degF] [facility] [place] 09-12-2020 11:02-0500 Respiratory Rate 20 /min [facility] [place] 08-15-2020 10:48-0500 Body Temperature 96.69 [degF] [facility] [place] 08-15-2020 10:48-0500 BP Diastolic 90 mm[Hg] [facility] [place] [facility] [place] 08-15-2020 10:48-0500 BP Systolic 147 mm[Hg] [facility] [place] [facility] [place] 08-15-2020 10:48-0500 Pulse (Heart Rate) 69 /min [facility] [place] 08-15-2020 10:48-0500 Respiratory Rate 22 /min [facility] [place] 07-18-2020 10:55-0400 Body Temperature 97.81 [degF] [facility] [place] 07-18-2020 10:55-0400 BP Diastolic 71 mm[Hg] [facility] [place] [facility] [place] 07-18-2020 10:55-0400 BP Systolic 133 mm[Hg] [facility] [place] [facility] [place] 07-18-2020 10:55-0400 Pulse (Heart Rate) 79 /min [facility] [place] 07-18-2020 10:55-0400 Respiratory Rate 16 /min [facility] [place] 06-27-2020 11:04-0400 BP Diastolic 71 mm[Hg] [facility] [place] [facility] [place] 06-27-2020 11:04-0400 BP Systolic 123 mm[Hg] [facility] [place] [facility] [place] 06-27-2020 11:04-0400 Pulse (Heart Rate) 84 /min [facility] [place] 06-27-2020 11:04-0400 Respiratory Rate 22 /min [facility] [place] 05-30-2020 13:10-0400 Body Temperature 97.59 [degF] [facility] [place] 05-30-2020 13:10-0400 BP Diastolic 86 mm[Hg] [facility] [place] [facility] [place] 05-30-2020 13:10-0400 BP Systolic 136 mm[Hg] [facility] [place] 05-30-2020 13:10-0400 Pulse (Heart Rate) 108 /min [facility] [place] 05-30-2020 13:10-0400 Respiratory Rate 20 /min [facility] [place] 05-15-2020 14:09-0400 Pulse Oximetry 97 % [facility] [place] [facility] [place] 05-15-2020 08:52-0400 Body Temperature 98.2 [degF] [facility] [place] 05-15-2020 08:52-0400 BP Diastolic 58 mm[Hg] [facility] [place] 05-15-2020 08:52-0400 BP Systolic 118 mm[Hg] [facility] [place] 05-15-2020 08:52-0400 Pulse (Heart Rate) 68 /min [facility] [place] 05-15-2020 08:52-0400 Respiratory Rate 16 /min [facility] [place] 05-10-2020 10:40-0400 BMI (Body Mass Index) 27.21 kg/m2 Chele Lagos [facility], [place] 05-10-2020 10:40-0400 Body weight 69.67 kg Chele Lagos [facility] , [place] 05-10-2020 10:40-0400 Height 160 cm [facility] [place] 04-06-2020 07:53-0400 Body Temperature 97 [degF] Kian Simon [facility] [place], [place] 04-06-2020 07:53-0400 BP Diastolic 80 mm[Hg] [facility] [place] 04-06-2020 07:53-0400 BP Systolic 120 mm[Hg] Kian Ernst [facility], [place] 04-06-2020 07:53-0400 Pulse (Heart Rate) 66 /min Kian Simon [facility] [place], [place] 04-06-2020 07:53-0400 Pulse Oximetry 96 % Kian Ernst [facility], [place] 04-06-2020 07:53-0400 Respiratory Rate 16 /min [facility] [place] [place] 04-06-2020 04:30-0400 BMI (Body Mass Index) 30.86 kg/m2 Kian Ernst [facility], [place] 04-06-2020 04:30-0400 Body weight 71.67 kg Kian Ernst [facility], [place] 04-03-2020 07:32-0400 Height 152.4 cm Kian Ernst [facility], [place] 03-23-2020 17:22-0400 BP Diastolic 82 mm[Hg] [facility] [place] 03-23-2020 17:22-0400 BP Systolic 137 mm[Hg] [facility] , [place] 03-23-2020 17:22-0400 Pulse Oximetry 99 % [facility] [place] 03-23-2020 15:09-0400 Body Temperature 98.4 [degF] [facility] [place] 03-23-2020 15:09-0400 Pulse (Heart Rate) 76 /min [facility], [place] 03-23-2020 15:07-0400 BMI (Body Mass Index) 31.05 kg/m2 [facility], [place] 03-23-2020 15:07-0400 Body weight 72.12 kg Forest Simon [place], [place] 03-23-2020 15:07-0400 Height 152.4 cm Forest Simon [place], [place] 03-23-2020 15:07-0400 Respiratory Rate 18 /min Forest Simon [facility] [place], [place] 02-09-2020 15:52-0400 BP Diastolic 50 mm[Hg] Mariusz Michael [place], [place] 02-09-2020 15:52-0400 BP Systolic 136 mm[Hg] [place]ariusz [place] 02-09-2020 15:52-0400 Pulse (Heart Rate) 54 /min [place] 02-09-2020 15:52-0400 Pulse Oximetry 98 % [facility] Michael [place], [place] 02-09-2020 15:52-0400 Respiratory Rate 18 /min [facility] Michael [place], [place] 02-09-2020 11:10-0400 Body Temperature 98.6 [degF] [facility] [place] 02-09-2020 11:10-0400 Body weight 68.04 kg [facility] [place], [place] 08-11-2019 15:08-0500 Body weight 67 kg [place], [place] Encounters Encounter Date Encounter Type Care Provider Facility Start: 10-27-2023 End: 10-28-2023 ambulatory BRINA CORDERO Facility:[facility] Start: 10-17-2023 End: 10-21-2023 ambulatory RICCO GARLAND Facility:[facility] Start: 10-15-2023 End: 10-15-2023 ambulatory Brina Cordero Other In[facility] Other Start: 10-15-2023 Telephone encounter Brina Cordero [facility] Start: 10-07-2023 End: 10-07-2023 ambulatory Brina Cordero Other Invarium Other Start: 10-07-2023 Telephone encounter Brina Cordero [facility] Start: 10-05-2023 End: 10-05-2023 ambulatory Brina Cordero Other Invarium Other Start: 10-05-2023 Telephone encounter Brina Cordero [facility] Start: 09-23-2023 Encounter for other preprocedural examination BRINA ROXIE [facility] Start: 09-23-2023 End: 09-23-2023 ambulatory STEFANIE OCAMPO Facility:[facility] Start: 09-23-2023 End: 09-24-2023 ambulatory BRINA Pelaez ROXIE Facility:[facility] Start: 09-23-2023 End: 09-24-2023 ambulatory BRINA CORDERO Facility:[facility] Start: 09-17-2023 ambulatory BRINA CORDERO Facility :[facility] Start: 09-09-2023 End: 09-09-2023 ambulatory Brina Cordero Other Invarium Other Start: 09-09-2023 Transitional care janina singh [facility] 14 day discharge Brina Roxie [facility] Start: 09-08-2023 Orders Only Ricco Garland MD Work Phone: Urology Comment on above: Hydronephrosis with urinary obstruction due to renal calculus (Primary Dx) Start: 09-07-2023 End: 09-08-2023 ambulatory RICCO GARLAND Facility:[facility] Start: 09-06-2023 ambulatory Harsh Hardy ty:OSWALDO Galvan Start: 09-03-2023 End: 09-04-2023 ambulatory Justino Martinez [facility] Other Start: 09-03-2023 Telephone encounter Brina Cordero [facility] Start: 09-01-2023 End: 09-03-2023 Evaluation and management of inpatient Brina Pelaez Roxie Facility:[facility] Start: 08-31-2023 Evaluation and manag ement of inpatient MD Destiny Irwin Work Phone: [facility] Work Phone: Start: 08-31-2023 End: 08-31-2023 ambulatory Brina Roxie Other Invarium Other Start: 08-31-2023 Telephone encounter Brina Cordero [facility] Start: 08-30-2023 End: 08-30-2023 ambulatory Brina Roxie Other Invarium Other Start: 08-30-2023 Telephone encounter Brina Cordero [facility] Start: 08-26-2023 End: 08-27-2023 ambulatory Harsh [facility] [employer] Other Start: 08-26-2023 Telephone encounter Brina Cordero [facility] Start: 08-24-2023 End: 08-24-2023 ambulatory Brina Roxie Other Invarium Other Start: 08-24-2023 Telephone encounter Brina Cordero [facility] Start: 08-23-2023 End: 08-23-2023 ambulatory Brina Roxie Other Invarium Other Start: 08-23-2023 Telephone encounter Brina Cordero [facility] Start: 08-03-2023 End: 08-03-2023 ambulatory Brina Roxie Other In[facility]ium Other Start: 08-03-2023 Telephone encounter Brina Cordero [facility] Start: 08-02-2023 End: 08-02-2023 ambulatory Brina Cordero Other Invarium Other Start: 08-02-2023 Telephone encounter Brina Cordero [facility] Start: 07-21-2023 End: 07-21-2023 ambulatory Brina Roxie Other Invarium Other Start: 07-21-2023 Telephone encounter Brina Cordero [facility] Start: 07-19-2023 End: 07-19-2023 ambulatory Brina Cordero Other Invarium Other Start: 07-19-2023 Telephone encounter Brina Cordero [facility] Start: 07-05-2023 End: 07-05-2023 ambulatory Brina Cordero Other Invarium Other Start: 07-05-2023 Telephone encounter Brina Cordero [facility] Start: 06-11-2023 End: 06-11-2023 ambulatory Brina Cordero Other Invarium Other Start: 06-11-2023 Patient encounter procedure Brina Roxie [facility] Start: 05-26-2023 (ID) [facility] Brina Roxie [facility] Start: 05-26-2023 End: 05-26-2023 ambulatory Brina Cordero Other Invarium Other Start: 10-14-2021 End: 10-15-2021 ambulatory JUSTINO Paolo YAZMIN [facility] Start: 10-03-2021 End: 10-04-2021 ambulatory JUSTINO Paolo YAZMIN [facility] Start: 06-24-2021 End: 06-25-2021 ambulatory JUSTINO Paolo YAZMIN [facility] Start: 06-24-2021 End: 06-24-2021 Subsequent hospital visit by physician [place]ino [place] Phone: [facility] Start: 04-12-2021 End: 04-12-[address] ALAN HERNANDEZ Facility: Start: 02-20-2021 End: 02-21-2021 ambulatory JUSTINO Paolo YAZMIN [facility] Start: 02-20-2021 End: 02-20-2021 Subsequent hospital visit by physician [place]ino [place] Phone: [facility] Start: 12-05-2020 End: 12-06-2020 ambulatory DILAN CHEW [facility] Start: 12-05-2020 End: 12-05-2020 Subsequent hospital visit by physician Justino Dhaliwal [facility] Start: 11-07-2020 End: 11-08-2020 ambulatory JUSTINO DHALIWAL [facility] Start: 11-07-2020 End: 11-07-2020 Subsequent hospital visit by physician Justino Dhaliwal [facility] Start: 11-06-2020 End: 11-07-2020 ambulatory JUSTINO DHALIWAL [facility] Start: 11-06-2020 End: 11-06-2020 Subsequent hospital visit by physician Justino Dhaliwal [facility] Start: 10-30-2020 End: 10-31-2020 ambulatory JUSTINO DHALIWAL [facility] Start: 10-30-2020 End: 10-30-2020 Subsequent hospital visit by physician Justino Dhaliwal [facility] Start: 10-23-2020 End: 10-24-2020 ambulatory MANUEL IBARRA [facility] Start: 10-23-2020 End: 10-23-2020 Subsequent hospital visit by physician Justino Dhaliwal [facility] Start: 09-26-2020 End: 09-26-2020 Subsequent hospital visit by physician Justino Dhaliwal [facility] Start: 09-25-2020 End: 09-25-2020 Subsequent hospital visit by physician Justino Dhaliwal [facility] Start: 09-18-2020 End: 09-18-2020 Subsequent hospital visit by physician Justino Dhaliwal [facility] Start: 09-12-2020 End: 09-12-2020 Subsequent hospital visit by physician Glenn Martínez Work Phone: [facility] Comment on above: Decubitus ulcer of h eel, left, unstageable (HCC) (Primary Dx) Start: 09-11-2020 End: 09-11-2020 Subsequent hospital visit by physician Justino Dhaliwal [facility] Start: 09-06-2020 End: 09-06-2020 Subsequent hospital visit by physician Justino Dhaliwal [facility] Start: 09-05-2020 End: 09-05-2020 Subsequent hospital visit by physician Justino Dhaliwal [facility] Start: 08-28-2020 End: 08-28-2020 Subsequent hospital visit by physician Justino [facility] Start: 08-27-2020 End: 08-27-2020 Subsequent hospital visit by physician Justino [facility] Start: 08-21-2020 End: 08-21-2020 Subsequent hospital visit by physician Justino [facility] Start: 08-16-2020 End: 08-16-2020 Subsequent hospital visit by physician Justino [facility] Start: 08-15-2020 End: 08-15-2020 Subsequent hospital visit by physician Glenn Martínez Work Phone: [facility] Comment on above: Decubitus ulcer of h eel, left, unstageable (HCC) (Primary Dx) Start: 08-09-2020 End: 08-09-2020 Subsequent hospital visit by physician Justino [facility] Start: 07-18-2020 End: 07-18-2020 Subsequent hospital visit by physician Glenn Martínez Work Phone: [facility] Comment on above: Decubitus ulcer of h eel, left, unstageable (HCC) (Primary Dx); Pressure ulcer of left calf, stage 3 (HCC) Start: 07-18-2020 End: 07-18-2020 Subsequent hospital visit by physician Justino [facility] Start: 07-09-2020 End: 07-09-2020 Subsequent hospital visit by physician Justino [facility] Start: 07-01-2020 End: 07-01-2020 Subsequent hospital visit by physician Justino [facility] Start: 06-27-2020 End: 06-27-2020 Subsequent hospital visit by physician Glenn Martínez Work Phone: [facility] Comment on above: Decubitus ulcer of h eel, left, unstageable (HCC) (Primary Dx); Pressure injury of left heel, stage 3 (HCC) Start: 06-25-2020 End: 06-25-2020 Subsequent hospital visit by physician Justino [facility] Start: 06-24-2020 End: 06-24-2020 Subsequent hospital visit by physician Justino [facility] Start: 06-19-2020 End: 06-19-2020 Subsequent hospital visit by physician Justino [facility] Start: 06-19-2020 End: 06-19-2020 Subsequent hospital visit by physician Justino [facility] Start: 06-18-2020 End: 06-18-2020 Subsequent hospital visit by physician Justino Dhaliwal [facility] Start: 06-13-2020 End: 06-13-2020 Subsequent hospital visit by physician Asif Ventura Drawing Room [facility] Comment on above: Arrived Decubitus ulcer of h eel, left, unstageable (HCC) (Primary Dx) Start: 06-12-2020 End: 06-12-2020 Subsequent hospital visit by physician Justino Dhaliwal [facility] Start: 06-06-2020 End: 06-06-2020 Subsequent hospital visit by physician Justino Dhaliwal [facility] Start: 05-30-2020 End: 05-30-2020 Subsequent hospital visit by physician Glenn Martínez Work Phone: [facility] Start: 05-30-2020 End: 05-30-2020 Subsequent hospital visit by physician Justino Dhaliwal [facility] Start: 05-23-2020 End: 05-23-2020 Subsequent hospital visit by physician Justino Dhaliwal [facility] Start: 05-23-2020 End: 05-23-2020 Subsequent hospital visit by physician Justino Dhaliwal [facility] Start: 05-17-2020 End: 05-17-2020 Subsequent hospital visit by physician Justino Dhaliwal 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 Start: 05-08-2020 End: 05-08-2020 Subsequent hospital visit by physician Justino Dhaliwal [facility] Start: 05-03-2020 End: 05-03-2020 Subsequent hospital visit by physician Justino Dhaliwal [facility] Start: 04-10-2020 End: 04-10-2020 Subsequent hospital visit by physician Justino Dhaliwal [facility] Start: 04-02-2020 End: 04-06-2020 Evaluation and management of inpatient Kian Ernst [facility] Comment on above: General weakness (Pr imary Dx); Hypokalemia; Malaise; Cellulitis of right upper extremity Start: 03-25-2020 End: 03-25-2020 Subsequent hospital visit by physician Justino Dhaliwal [facility] Start: 03-23-2020 End: 03-23-2020 Emergency department patient visit Forest Baer Work Phone: [facility] Comment on above: Pain of left hip bridger nt (Primary Dx) Start: 03-12-2020 End: 03-12-2020 Subsequent hospital visit by physician Justino Dhaliwal [facility] Start: 02-27-2020 End: 02-27-2020 Subsequent [facility] Start: 02-20-2020 End: 02-20-2020 Subsequent hospital visit by physician Justino Dhaliwal [facility] Start: 02-09-2020 End: 02-15-2020 Evaluation and management of inpatient Carlos Carlin Facility:[facility] Start: 02-09-2020 End: 02-09-2020 Emergency department patient visit Mariusz Rodriguez Work Phone: [facility] Comment on above: Closed displaced int ertrochanteric fracture of left femur, initial encounter (HCC) (Primary Dx) Start: 02-02-2020 End: 02-02-2020 Subsequent hospital visit by physician [facility] Drawing Room [facility] Comment on above: Arrived Start: 10-30-2019 End: 10-30-2019 Subsequent hospital visit by physician Justino Dhaliwal [facility] Start: 08-11-2019 End: 08-13-2019 Subsequent hospital visit by physician [facility] Drawing Room [facility] Comment on above: Arrived Chronic kidney disea se, stage IV (severe) (HCC) Procedures Date Procedure Procedure Detail Performing Clinician Start: 09-23-2023 Antibody screen BRINA CORDERO Comment on above: Order Comment: Speci men Type: BLOOD SPECIMENOrdering Facility: [facility] Address: [address] [place] [address] Performed By: #### T [id number] ####CC MAIN BLOOD BANKCLIA [id number] [facility] [id number] [address] [place] Start: 08-31-2023 Urine culture MD Destiny Irwin Work Phone: Start: 12-05-2020 Blood count complete auto&auto difrntl wbc Manuel Ibarra Work Phone: Start: 12-05-2020 C-reactive protein Sana Ibarra Work Phone: Start: 12-05-2020 Assay of blood/uric acid Benahili U Kerriya Work Phone: Start: 12-05-2020 Assay of magnesium Joselyn hili U Ibkameronya Work Phone: Start: 12-05-2020 Assay of parathormone B enahili U Kerriya Work Phone: Start: 12-05-2020 Renal function panel Be nahili U Jeevan Work Phone: Start: 11-07-2020 Blood count complete auto&auto difrntl wbc Manuel Ibarra Work Phone: Start: 11-07-2020 C-reactive protein Sana Ibarra Work Phone: Start: 11-07-2020 Sedimentation rate r bc automated Manuel Ibarra Work Phone: Start: 10-30-2020 Lipid panel Justino Paolo Dany sse Work Phone: Start: 10-23-2020 Blood count complete automated Manuel Ibarra Work Phone: Start: 10-23-2020 C-reactive protein Sana Ibarra Work Phone: Start: 10-23-2020 Comprehensive metabo lic panel Manuel Ibarra Work Phone: Start: 10-23-2020 Sedimentation rate r bc automated Manuel Ibarra Work Phone: Start: 09-26-2020 Assay of magnesium Vincent s F Yazmin Work Phone: Start: 09-26-2020 Blood count complete automated Manuel Ratnasamy Work Phone: Start: 09-26-2020 C-reactive protein Sana jeffrey Ratnasamy Work Phone: Start: 09-26-2020 Comprehensive metabo lic panel Manuel Ratnasamy Work Phone: Start: 09-26-2020 Sedimentation rate r bc automated Manuel Ratnasamy Work Phone: Start: 09-18-2020 Blood count complete automated Manuel Ratnasamy Work Phone: Start: 09-18-2020 C-reactive protein Sana jeffrey Ratnasamy Work Phone: Start: 09-18-2020 Comprehensive metabo lic panel Manuel Ratnasamy Work Phone: Start: 09-18-2020 Sedimentation rate r bc automated Manuel Ratnasamy Work Phone: Start: 09-11-2020 Blood count complete automated Manuel Ratnasamy Work Phone: Start: 09-11-2020 C-reactive protein Sana jeffrey Ratnasamy Work Phone: Start: 09-11-2020 Comprehensive metabo lic panel Manuel Ratnasamy Work Phone: Start: 09-11-2020 Sedimentation rate r bc automated Manuel Ratnasamy Work Phone: Start: 09-06-2020 C-reactive protein Sana jeffrey Ratnasamy Work Phone: Start: 09-06-2020 Comprehensive metabo lic panel Manuel Ratnasamy Work Phone: Start: 09-05-2020 Blood count complete automated Manuel Ratnasamy Work Phone: Start: 09-05-2020 Comprehensive metabo lic panel Manuel Ratnasamy Work Phone: Start: 09-05-2020 Sedimentation rate r bc automated Manuel Ratnasamy Work Phone: Start: 08-28-2020 Blood count complete automated Manuel Ratnasamy Work Phone: Start: 08-28-2020 C-reactive protein Sana Ibarra Work Phone: Start: 08-28-2020 Comprehensive metabo lic panel Manuel Ibarra Work Phone: Start: 08-28-2020 Sedimentation rate r bc automated Manuel Ibarra Work Phone: Start: 08-27-2020 Urinalysis microscopic only Justino Dhaliwal Work Phone: Start: 08-27-2020 Urnls dip stick/tabl et rgnt auto w/o microscopy Justino Dhaliwal Work Phone: Start: 08-21-2020 Blood count complete automated Manuel Ibarra Work Phone: Start: 08-21-2020 C-reactive protein Sana Ibarra Work Phone: Start: 08-21-2020 Comprehensive metabo lic panel Manuel Ibarra Work Phone: Start: 08-21-2020 Sedimentation rate r bc automated Manuel Ibarra Work Phone: Start: 08-16-2020 Blood count complete automated Manuel Ibarra Work Phone: Start: 08-16-2020 C-reactive protein Sana Ibarra Work Phone: Start: 08-16-2020 Comprehensive metabo lic panel Manuel Ibarra Work Phone: Start: 08-16-2020 Sedimentation rate r bc automated Manuel Ibarra Work Phone: Start: 08-09-2020 Assay of blood/uric acid Benahili U Iboaya Work Phone: Start: 08-09-2020 Assay of ferritin Benah david U Iboaya Work Phone: Start: 08-09-2020 Assay of magnesium Lyons hili U Iboaya Work Phone: Start: 08-09-2020 Assay of parathormone [...] 07-18-2020 Assay of blood/uric acid Benahili U Iboaya Work Phone: Start: 07-18-2020 Assay of magnesium Joselyn hili U Iboaya Work Phone: Start: 07-18-2020 Assay of parathormone B enahili U Iboaya Work Phone: Start: 07-18-2020 Blood count complete automated Benahili U Iboaya Work Phone: Start: 07-18-2020 Renal function panel Be nahili U Iboaya Work Phone: Start: 07-18-2020 Creatinine other source Benahili U Iboaya Work Phone: Start: 07-18-2020 Protein total xcpt refractometry urine Benahili U Iboaya Work Phone: Start: 07-18-2020 Urinalysis microscopic only Benahili U Iboaya Work Phone: Start: 07-18-2020 Urnls dip stick/tabl et rgnt auto w/o microscopy Benahili U Iboaya Work Phone: Start: 07-09-2020 Basic metabolic pane l calcium total Justino Dhaliwal Work Phone: Start: 07-01-2020 Basic metabolic pane l calcium total Manuel Ratnasamy Work Phone: Start: 06-25-2020 Basic metabolic pane l calcium total Manuel Ratnasamy Work Phone: Start: 06-19-2020 Cul bact xcpt urine blood/stool aerobic isol Justino Dhaliwal Work Phone: Start: 06-19-2020 Lipid panel Justino ramos Work Phone: Start: 06-13-2020 Cul bact xcpt urine blood/stool aerobic isol Glenn Martínez Work Phone: Start: 06-12-2020 Blood count complete automated Manuel Ratnasamy Work Phone: Start: 06-12-2020 C-reactive protein Sana jeffrey Ratnasamy Work Phone: Start: 06-12-2020 Comprehensive metabo lic panel Manuel Ratnasamy Work Phone: Start: 06-12-2020 Sedimentation rate r bc automated Manuel Ratnasamy Work Phone: Start: 06-06-2020 Blood count complete automated Manuel Ratnasamy Work Phone: Start: 06-06-2020 C-reactive protein Sana jeffrey Ratnasamy Work Phone: Start: 06-06-2020 Comprehensive metabo lic panel Manuel Ratnasamy Work Phone: Start: 06-06-2020 Sedimentation rate r bc automated Manuel Ratnasamy Work Phone: Start: 05-30-2020 C-reactive protein Sana jeffrey Ratnasamy Work Phone: Start: 05-30-2020 Sedimentation rate r bc automated Manuel Ratnasamy Work Phone: Start: 05-30-2020 Blood count complete auto&auto difrntl wbc Manuel Ibarra Work Phone: Start: 05-30-2020 Comprehensive metabo lic panel Manuel Ibarra Work Phone: Start: 05-23-2020 Blood count complete auto&auto difrntl wbc Manuel Ibarra Work Phone: Start: 05-23-2020 C-reactive protein Sana Ibarra Work Phone: Start: 05-23-2020 Comprehensive metabo lic panel Justino Dhailwal Work Phone: Start: 05-23-2020 Sedimentation rate r bc automated Manuel Ibarra Work Phone: Start: 05-17-2020 Blood count complete auto&auto difrntl wbc Justino Dhaliwal Work Phone: Start: 05-17-2020 Comprehensive metabo lic panel Justino Dhaliwal Work Phone: Start: 05-15-2020 HEMOGLOBIN AND HEMAT OCRIT, BLOOD CHELE LAGOS Start: 05-15-2020 DISCHARGE PATIENT NIKHIL ARANGOZINA Start: 05-15-2020 Blood count hemoglobin Bowdon C Corinna Work Phone: Start: 05-15-2020 INITIATE OXYGEN THER APY PROTOCOL CHELE LAGOS Start: 05-14-2020 HEMOGLOBIN AND HEMAT OCRIT, BLOOD CHELE LAGOS Start: 05-14-2020 Blood count hemoglobin Katarina Pike Work Phone: Start: 05-14-2020 TRANSFUSE RED BLOOD CELLS CHELE LAGOS Start: 05-14-2020 Antibody screen Chele Lagos Comment on above: Performed at [facility] [address] [place] [address] Start: 05-14-2020 PREPARE RBC (CROSSMATCH) CHELE LAGOS [...] Basic metabolic pane l calcium total CHELE LGAOS Start: 05-14-2020 Blood count complete auto&auto difrntl wbc CHELE LAGOS Start: 05-14-2020 Blood smear peripher al interp phys w/writ report CHELE LAGOS Start: 05-14-2020 Creatinine blood CHELE LAGOS Start: 05-14-2020 Blood typing serologic abo Gheith Eliseo Work Phone: Start: 05-14-2020 Radex foot complete minimum 3 views Katarina Semaj Pike Work Phone: Start: 05-14-2020 Anion gap [Moles/Vol] [...] CARE ORDER (SPECIFY) CHELE LAGOS Start: 05-13-2020 Blood count complete auto&auto difrntl wbc CHELE LAGOS Start: 05-13-2020 Antibody marydetella SARA CRISTOBAL DEMOND Start: 05-13-2020 Basic metabolic pane l calcium total CHELE LAOGS Start: 05-13-2020 Creatinine blood CHELE LAGOS Start: [...] Start: 05-13-2020 IP CONSULT TO SOCIAL WORK CEHLE LAGOS Start: 05-12-2020 BLADDER SCAN CHELE IZAGUIRRE Start: 05-12-2020 BLADDER SCAN Gheith You sif Work Phone: Start: 05-12-2020 INITIATE OXYGEN THER APY PROTOCOL CHELE LAGOS Start: 05-12-2020 WOUND OSTOMY EVAL NIKHIL N CONCHITAZINA Start: 05-12-2020 Antibody bordetella SARA CRISTOBAL CONCHITAZINA Start: 05-12-2020 Basic metabolic pane l calcium total CHELE LAGOS Start: 05-12-2020 Blood count complete auto&auto difrntl wbc CHELE LAGOS Start: 05-12-2020 Creatinine blood CHELE LAGOS Start: 05-12-2020 WOUND OSTOMY EVAL Nikhil n P Demond Work Phone: Start: 05-12-2020 Anion gap [Moles/Vol] C jonnathan A MyUS.comitmeyer Work Phone: Start: 05-12-2020 Basic metabolic pane l calcium total Sylvia A Heitmeyer Work Phone: Start: 05-12-2020 Blood count complete auto&auto difrntl wbc Sylvia A Heitmeyer Work Phone: Start: 05-12-2020 GLOMERULAR FILTRATIO N RATE, ESTIMATED Sylvia A Heitmeyer Work Phone: Start: 05-12-2020 STRAIGHT CATH CHELE SINGH Start: 05-12-2020 BLADDER SCAN CHELE CONCHITA ZINA Start: 05-12-2020 BLADDER SCAN Mirian Gomez Start: 05-11-2020 NURSING COMMUNICATION S MAGDIEL LAGOS Start: 05-11-2020 BLADDER SCAN CHELE IZAGUIRRE Start: 05-11-2020 BLADDER SCAN Saleem moreno Work Phone: Start: 05-11-2020 Blood count complete auto&auto difrntl wbc CHELE LAGOS Start: 05-11-2020 Antibody bordetella SARA CRISTOBAL LAGOS Start: 05-11-2020 Basic metabolic pane l calcium total CHELE LAGOS Start: 05-11-2020 Creatinine blood CHELE LAGOS Start: 05-11-2020 INITIATE OXYGEN THER APY PROTOCOL CHELE LAGOS Start: 05-11-2020 Blood count complete auto&auto difrntl wbc Sylvia A [employer] Work Phone: Start: 05-11-2020 Anion gap [Moles/Vol] C ourtgail Graysno [employer] Work Phone: Start: 05-11-2020 Basic metabolic pane l calcium total Sylvia Renuka [employer] Work Phone: Start: 05-11-2020 GLOMERULAR FILTRATIO N RATE, ESTIMATED Personalis Work Phone: Start: 05-10-2020 DIET GENERAL CHELE IZAGUIRRE Start: 05-10-2020 IP CONSULT TO HOSPITALIST CHELE LAGOS Start: 05-10-2020 OT EVAL AND TREAT NIKHIL LAGOS Start: 05-10-2020 PLACE INTERMITTENT P NEUMATIC COMPRESSION DEVICE CHELE LAGOS Start: 05-10-2020 PT EVAL AND TREAT NIKHIL LAGOS Start: 05-10-2020 WEIGHT BEARING TOLERATED CHELE LAGOS Start: 05-10-2020 FULL CODE CHELE IZAGUIRRE Start: 05-10-2020 ICE TO AFFECTED AREA ST MALICK LAGOS Start: 05-10-2020 INITIATE OXYGEN THER APY PROTOCOL CHELE LAGOS Start: 05-10-2020 INTAKE AND OUTPUT NIKHIL LAGOS Start: 05-10-2020 NEURO/VASCULAR CHECKS S MOSESLAMAR ARANGOZINA Start: 05-10-2020 VITAL SIGNS CHELE IZAGUIRRE Start: 05-10-2020 Radex hip unilateral with pelvis 2-3 views CHELE LAGOS Start: 05-10-2020 PATIENT STATUS (FROM ED OR OR/PROCEDURAL) CHELE LAGOS Start: 05-10-2020 TRANSFER PATIENT CHELE LAGOS Start: 05-10-2020 Cul prsmptv pthgnc o rganism scrn w/colony estimj CHELE LAGOS Start: 05-10-2020 Radex hip unilateral with pelvis 2-3 views Sylvia Monte Work Phone: Start: 05-10-2020 ELEVATE HEELS OFF OF BED CHELE LAGOS Start: 05-10-2020 HEAD OF BED 60 DEGRE ES OR LESS CHELE LAGOS Start: 05-10-2020 NURSING COMMUNICATION S MAGDIEL LAGOS Start: 05-10-2020 TURN PATIENT CHELE IZAGUIRRE Start: 05-10-2020 TYPE AND SCREEN CHELE LAGOS Start: 05-10-2020 End: 05-10-2020 HIP TOTAL ARTHROPLASTY REVISION Chele Lagos Work Phone: Start: 05-10-2020 COVID-19 CHELE IZAGUIRRE Start: 05-10-2020 Antibody screen Chele Lagos Comment on above: Performed at [facility] [address] [place] [address] Start: 05-10-2020 Blood typing serologic abo Chele [...] Blood count complete auto&auto difrntl wbc Ricco Sánchez Work Phone: Start: 04-06-2020 Comprehensive metabo lic panel Ricco Sánchez Work Phone: Start: 04-05-2020 COVID-19 Ricco Sánchez Work Phone: Start: 04-05-2020 Blood count complete auto&auto difrntl wbc Ricco Sánchez Work Phone: Start: 04-05-2020 Comprehensive metabo lic panel Ricco Sánchez Work Phone: Start: 04-03-2020 Assay [...] 04-02-2020 End: 04-02-2020 CULTURE, BLOOD 1 Mariusz Latanya Eidharmeshes Work Phone: Start: 04-02-2020 Urnls dip stick/tabl et reagent auto microscopy Kian Ernst Start: 04-02-2020 Assay of magnesium Mariusz E Eitches Work Phone: Start: 04-02-2020 BASIC METABOLIC PANE L W/ REFLEX TO MG FOR LOW K Mariusz E Eitches Work Phone: Start: 04-02-2020 Ecg routine ecg w/le ast 12 lds i&r only Kian Ernst Start: 04-02-2020 EKG REPORT Hpf Scanni ng Start: 04-02-2020 Assay of troponin quantitative Kian Ernst Start: 04-02-2020 Assay of troponin quantitative Kian Ernst Start: 04-02-2020 Basic metabolic pane l calcium total Kian Ernst Start: 04-02-2020 Blood count complete auto&auto difrntl wbc Kina Ernst Start: 04-02-2020 Ecg routine ecg w/le ast 12 lds i&r only Kian Ernst Start: 04-02-2020 EKG REPORT Hpf Scananjali ng Start: 04-02-2020 Radiologic exam ches t single view Kian Ernst Start: 03-25-2020 Blood count complete auto&auto difrntl wbc Justino Boone Yazmin Work Phone: Start: 03-25-2020 Comprehensive metabo lic panel Justino Boone Yazmin Work Phone: Start: 03-23-2020 COVID-19 Forest Mtz deborah Work Phone: Start: 03-23-2020 Radex hip unilateral with pelvis 2-3 views Forestbrett Baer Work Phone: Start: 03-23-2020 BASIC METABOLIC PANE L W/ REFLEX TO MG FOR LOW K Forestbrett Baer Work Phone: Start: 03-23-2020 Blood count complete auto&auto difrntl wbc Forest Smithdeborah Work Phone: Start: 03-23-2020 Prothrombin time Forest Smithdeborah Work Phone: Start: 03-23-2020 Thromboplastin time partial plasma/whole blood Forestbrett Baer Work Phone: Start: 03-12-2020 Blood count complete auto&auto difrntl wbc Justino Boone Yazmin Work Phone: Start: 03-12-2020 Comprehensive metabo lic panel Justino Paolo Yazmin Work Phone: Start: 02-27-2020 Blood count complete auto&auto difrntl wbc Justino Dhaliwal Work Phone: Start: 02-27-2020 Comprehensive metabo lic panel Justino Dhaliwal Work Phone: Start: 02-20-2020 Blood count complete auto&auto difrntl wbc Justino Dhaliwal Work Phone: Start: 02-20-2020 Comprehensive metabo lic panel Justino Dhaliwal Work Phone: Start: 02-09-2020 Ct cervical spine w/ o contrast material Mariusz E The Other [employer] Work Phone: Start: 02-09-2020 Ct head/brain w/o co ntrast material Mariusz E The Other [employer] Work Phone: Start: 02-09-2020 Radex hip unilateral with pelvis 2-3 views Mariusz E Ecato Work Phone: Start: 02-09-2020 Radiologic exam ches t single view Mariusz Latanya Ecato Work Phone: Start: 02-09-2020 Blood count complete auto&auto difrntl wbc Mariusz Latanya The Other [employer] Work Phone: Start: 02-09-2020 Prothrombin time Mariusz Latanya Ecato Work Phone: Start: 02-09-2020 Thromboplastin time partial plasma/whole blood Mariusz Latanya Ecato Work Phone: Start: 02-02-2020 Assay of blood/uric [...] U Iboaya Start: 10-30-2019 Assay of magnesium Joselyn hili U Iboaya Start: 10-30-2019 Assay of [...] U Iboaya Start: 08-11-2019 Assay of magnesium Lyons hili U Iboaya Start: 08-11-2019 Assay of parathormone B enahili U Iboaya Start: 08-11-2019 Assay of thyroid sti mulating hormone tsh Benahili U [employer] Start: 08-11-2019 Blood count complete automated Benahili U [employer]aya Start: 08-11-2019 Creatinine clearance Be nahili U Iboaya Start: 08-11-2019 Creatinine other source Benahili U Iboaya Start: 08-11-2019 End: 08-11-2019 Protein total xcpt refractometry urine Benahili U Iboaya Start: 08-11-2019 Renal function panel Be nahili U Iboaya Start: 08-11-2019 Urnls dip stick/tabl et reagent auto microscopy Benahili U Iboaya Start: 08-11-2019 VITAMIN B12 & FOLATE Be nahili U Iboaya Plan of Treatment Date Care Activity Detail Author Start: 10-23-2023 Diabetes Screening Diabetes Screenin gonzalo [facility] Start: 08-31-2023 End: 08-31-2023 [facility] Start: 08-31-2023 Plain chest X-ray XR chest 2V* [facility] Start: 08-31-2023 XR Chest 2 Views [facility] Start: 08-31-2023 CT Abdomen and Pelvi s WO contrast [facility] Start: 08-31-2023 CT of abdomen and pelvis without contrast CT abdomen pelvis wo con [facility] Start: 08-31-2023 CT of head without contrast CT head/brain wo con [facility] Start: 08-31-2023 CT Unspecified body region WO contrast [facility] Start: 08-31-2023 [facility] Start: 05-28-2023 Influenza vaccination Influenza Vacc ine (#1) [facility] Start: 09-27-2022 Advance Directive Discussion Advance Directive Discussion [facility] Start: 09-27-2022 Depression Assessment Depression Ass essment [facility] Start: 12-05-2021 Creatinine measurement Creatinine mo [facility] Work Phone: Start: 12-05-2021 Potassium monitoring Potassium monit [facility] Work Phone: Start: 10-30-2021 Lipid panel Lipid screen [facility] Work Phone: Start: 10-23-2021 Creatinine measurement Creatinine mo [place] Start: 10-23-2021 Potassium monitoring Potassium monit [place], [place] Start: 09-26-2021 Creatinine measurement Creatinine mo [place] Start: 09-26-2021 Potassium monitoring Potassium monit [place] Start: 09-18-2021 Creatinine measurement Creatinine mo [place] Start: 09-18-2021 Potassium monitoring Potassium monit [place] Start: 09-11-2021 Creatinine measurement Creatinine mo [place] Start: 09-11-2021 Potassium monitoring Potassium monit [place] Start: 06-19-2021 Lipid panel Lipid screen [place], [place] Start: 05-28-2021 Influenza vaccination [facility] [employer] Work Phone: Start: 04-05-2021 Creatinine measurement Creatinine mo [place] Start: 04-05-2021 Potassium monitoring Potassium monit [place] Start: 03-23-2021 Creatinine measurement Creatinine mo [facility], [place] Start: 03-23-2021 Potassium monitoring Potassium monit [facility], [place] Start: 03-12-2021 Creatinine measurement Creatinine mo [facility], [place] Start: 03-12-2021 Potassium monitoring Potassium monit [facility], [place] Start: 02-26-2021 Creatinine measurement Creatinine mo [facility], [place] Start: 02-26-2021 Potassium monitoring Potassium monit [facility], [place] Start: 02-19-2021 Creatinine measurement Creatinine mo [facility] Start: 02-19-2021 Potassium monitoring Potassium monit [facility], [place] Start: 02-08-2021 Creatinine measurement Creatinine mo [facility], [place] Start: 02-08-2021 Potassium monitoring Potassium monit [facility], [place] Start: 02-01-2021 Creatinine measurement Creatinine mo [facility], [place] Start: 02-01-2021 Potassium monitoring Potassium monit [facility], [place] Start: 10-30-2020 Creatinine measurement Creatinine mo [facility], [place] Start: 10-30-2020 Potassium monitoring Potassium monit [facility], [place] Start: 09-12-2020 End: 09-12-2020 Appointment 09/12/2020 Appointment Wound Glenn Camargo DPM [address] [place] [address] [phone] [facility] Start: 08-15-2020 End: 08-15-2020 Appointment 08/15/2020 Appointment Wound OstGlenn Gonzalez DPM [address] [facility] [address] [place] [address] [phone] [facility] Start: 08-11-2020 Creatinine monitoring Creatinine mon [facility], [place] Start: 08-11-2020 Potassium monitoring Potassium monit [facility], [place] Start: 07-18-2020 End: 07-18-2020 Appointment 07/18/2020 Appointment Wound Ostomy Glenn Martínez DPM [address] [facility] [address] [address] [phone] [facility] Start: 06-27-2020 End: 06-27-2020 Appointment 06/27/2020 Appointment Wound OstGlenn Gonzalez, DPM [address] [facility] [address] [place] [address] [phone] [facility] Start: 06-13-2020 End: 06-13-2020 Appointment 06/13/2020 Appointment Wound OstGlenn Gonzalez, DPM [address] [facility] [address] [place] [address] [phone] [facility] Start: 05-28-2020 Influenza vaccination [place] Start: 05-28-2019 Influenza vaccination Flu vaccine (# 1) [place] Start: 03-17-2019 Annual Wellness Visi t (AWV) Annual Wellness Visit (AWV) [place] Start: 03-08-2019 Creatinine monitoring Creatinine mon [place]oring [place] Start: 03-08-2019 Lipid panel Lipid screen [place] Start: 03-08-2019 Lipid screen Lipid screen [place] Start: 03-08-2019 Potassium monitoring Potassium monit [place] Start: 2002 DEXA (modify frequen cy per FRAX score) DEXA (modify frequency per FRAX score) [place] Start: 2002 Pneumococcal 65+ yea rs Vaccine (1 of 1 - PPSV23) Pneumococcal 65+ years Vaccine (1 of 1 - PPSV23) [place] Start: 2002 Pneumococcal 65+ yrs at Risk Vaccine (1 of 2 - PCV13) Pneumococcal 65+ yrs at Risk Vaccine (1 of 2 - PCV13) [place] Start: 2002 Pneumococcal Vaccine : 65+ (1 - PCV) Pneumococcal Vaccine: 65+ (1 - PCV) [facility] Start: 2002 Screening for osteoporosis Bone Density Screening [facility] Start: 1997 RSV Vaccine (1 - 1-d ose 60+ series) RSV Vaccine (1 - 1-dose 60+ series) [facility] Start: 1992 Screening for osteoporosis DEXA (modify frequency per FRAX score) [place] Start: 1987 Shingles Vaccine (1 of 2) Shingles Vaccine (1 of 2) [place] Start: 1987 Shingrix Vaccine (1 of 2) Shingrix Vaccine (1 of 2) [facility] Start: 1956 DTaP/Tdap/Td vaccine (1 - Tdap) DTaP/Tdap/Td vaccine (1 - Tdap) [place] Start: 1956 Urine microalbumin profile DTaP,Tdap,Td Vaccine (1 - Tdap) [facility] Start: 1953 COVID-19 Vaccine (1 of 2) COVID-19 Vaccine (1 of 2) [place] Start: 1949 COVID-19 Vaccine (1) COVID-19 Vaccin e (1) [facility] Work Phone: Start: 1948 DTaP/Tdap/Td vaccine (1 - Tdap) DTaP/Tdap/Td vaccine (1 - Tdap) [place] Start: 02-07-1938 Covid-19 Vaccine (#1) Covid-19 Vacci ne (#1) [facility] Bacteria identified in Blood by Culture [facility] Bacteria identified in Urine by Culture [facility] CBC auto differential CBC auto d ifferential Lab Routine Daily until discontinued starting 04/05/2020, 2 completed [place] Comment on above: Daily until disconti nued starting 04/05/2020, 2 completed Comprehensive metabo lic 2000 panel Comprehensive metabolic panel Lab Routine Daily until discontinued starting 04/05/2020, 2 completed [place] Comment on above: Daily until disconti nued starting 04/05/2020, 2 completed Culture, Anaerobic a nd Aerobic Culture, Anaerobic and Aerobic Microbiology Routine 05/10/2020 1:31 PM EDT [place] Culture, Blood 1 [place] End: 04-10-2020 Culture, Urine Culture, Urine Microbiology Routine Once for 1 Occurrences starting 04/10/2020 until 04/10/2020 [place] Comment on above: Once for 1 Occurrenc es starting 04/10/2020 until 04/10/2020 Culture, Urine [place] End: 05-08-2020 Culture, Urine Culture, Urine Microbiology Routine Once for 1 Occurrences starting 05/08/2020 until 05/08/2020 [place] Comment on above: Once for 1 Occurrenc es starting 05/08/2020 until 05/08/2020 End: 08-09-2020 Culture, Urine Culture, Urine Microbiology Routine Once for 1 Occurrences starting 08/09/2020 until 08/09/2020 [place] Comment on above: Once for 1 Occurrenc es starting 08/09/2020 until 08/09/2020 End: 08-27-2020 Culture, Urine Culture, Urine Microbiology Routine Once for 1 Occurrences starting 08/27/2020 until 08/27/2020 [place] Comment on above: Once for 1 Occurrenc es starting 08/27/2020 until 08/27/2020 Culture, Wound [place] Hemoglobin and Hematocrit, Blood, Post Transfusion Hemoglobin and Hematocrit, Blood, Post Transfusion Lab Routine Post Transfusion Post Transfusion Post Transfustion for 1 Occurrences starting 05/14/2020 [place] Comment on above: Post Transfusion Pos t Transfusion Post Transfustion for 1 Occurrences starting 05/14/2020 Initiate Oxygen Ther apy Protocol Initiate Oxygen Therapy Protocol Respiratory Care Routine Daily until discontinued starting 04/03/2020 [place] Comment on above: Daily until disconti nued starting 04/03/2020 End: 08-11-2019 Iron and TIBC Iron and TIBC Lab Routine Once for 1 Occurrences starting 08/11/2019 until 08/11/2019 [place] Comment on above: Once for 1 Occurrenc es starting 08/11/2019 until 08/11/2019 Iron and TIBC Iron and TIBC La b Routine 08/11/2019 10:35 AM EST [place] End: 10-07-2024 Kidney img morphology vascular flow 1 w/rx NM RENAL FLOW/FXN W PHARM Radiology Routine Hydronephrosis with urinary obstruction due to renal calculus 1 Occurrences starting 09/08/2023 until 10/07/2024 [facility] Work Phone: Comment on above: 1 Occurrences starti ng 09/08/2023 until 10/07/2024 Oxygen therapy [[facility] [employer] Data Set] Initiate Oxygen Therapy Protocol Respiratory Care Routine Daily until discontinued starting 05/11/2020 [place] Comment on above: Daily until disconti nued starting 05/11/2020 PREPARE RBC (CROSSMATCH), 1 Units PREPARE RBC (CROSSMATCH), 1 Units Blood Bank Non-Stat 05/14/2020 8:58 AM EDT [place] Transfuse erythrocyt es [Vol] Transfuse RBC Nursing Transfusion Routine 05/14/2020 11:30 AM EDT [facility] Icard Clini c Payers Date Payer Category Payer Self-pay 2023 Medicaid MEDICAID [facility] MEDICAID [id number] 2023-Present [phone] [address] [place] [address] Medicaid [id number] 2022 Medicaid [id number] 2020 Unknown 2017 Medicare BCBS MEDICARE AN THEM MEDIBLUE ESSENTIAL/PLUS xxxxxxxxxxxx 2017-Present [address] [address] [place] [address] xxxxxxxxxxxx [id number] 2017 Medicare BCBS MEDICARE AN THEM MEDIBLUE ESSENTIAL/PLUS [id number] 2017-Present [address] [address] [place] [address] [id number] 2002 Medicare 2002 Medicare [id number] 1959 Medicare [id number] 1937 Unknown [id number] 1937 Unknown [id number] [id number] 1937 Unknown [id number] [id number] 1937 Unknown [id number] [id number] 1937 Unknown [id number] [id number] 1937 Unknown [id number] [id number] 1937 Unknown [id number] [id number] 1937 Unknown [id number] [id number] 1937 Unknown [id number] [id number] 1937 Unknown [id number] [id number] 1937 Unknown [id number] [id number] 1937 Unknown [id number] [id number] 1937 Unknown [id number] [id number] 1937 Unknown [id number] [id number] 1937 Unknown [id number] [id number] Unknown [id number] Social History Date Type Detail Facility Start: 09-27-2017 End: 09-07-2023 Tobacco smoking status NHIS Never smoker [facility] Start: 09-27-2017 End: 09-12-2020 Alcohol intake Current non-drinker of alcohol (finding) [employer] Start: 1935 Sex Assigned At Not on file M Mobivity Exposure to SARS-CoV -2 (event) Unable to assess [employer] Start: 04-03-2020 End: 09-07-2023 Tobacco use and exposure Never used [employer] Exposure to SARS-CoV -2 (event) Not sure [employer] Exposure to SARS-CoV -2 (event) Yes [employer] Start: 09-07-2023 Sex Assigned At N [employer] Other Start: 1935 Sex Assigned At Female F [facility] Start: 09-07-2023 History of Social function [facility] National Score (1-100), lower number is lower risk 63 [facility] Medical Equipment Procedure Code Equipment Code Equipment Origin al Text Equipment Identifier Dates Impl Hip Cover T hr Hole Med [employer] [id number] Start: 05-10-2020 Impl Hip Screw Redapt Lk 30mm [id number] Start: 05-10-2020 Impl Hip Screw Redapt Lk 40mm [id number] Start: 05-10-2020 Impl Hip Screw Redapt Lk 30mm [id number] Start: 05-10-2020 Impl Hip Acet Li ner R3 0 Deg 36 X 52 [id number] Start: 05-10-2020 Redapt Modular- Ackerman/Nephew [id number] Start: 05-10-2020 Impl Hip Fem Com p Redapt 240mm Sz 15 [id number] Start: 05-10-2020 Impl Hip Fem Hea d [employer] Chrome 12to14 3 [id number] Start: 05-10-2020 Clinical Notes 05-26-2023 to 01-31-2024 Note Date & Type Note Facility 10-27-2023 Note HNO ID: [id number] Author: RICCO GARLAND MD Service: ? Author Type: Physician Type: Progress Notes Filed: 10/27/2023 13:12 Note Text: CYSTOSCOPY PROCEDURE Dru DODGE NOTE Pertinent History and Physical Exam reviewed and is unchanged. Primary Diagnosis: Nephrolithiasis Procedure: Stent Extraction Informed Consent Discussed: Yes. Risks, benefits, alternatives and personnel discussed with patient who consents to proceed. Audible Time-Out: Yes Details of Procedure: TECHNIQUE: The procedure was fully explained to the patient, risks were reviewed. The patient was placed in the supine position. The genitalia were prepped with antiseptic soap per protocol, and the urethra was anesthetized with viscous 2% lidocaine. The flexible cystoscope was introduced into the urethra and advanced under direct vision with findings as outlined below. At the conclusion of the procedure, the cystoscope was withdrawn. Anesthetics given: 10 cc 2% Lidocaine-Urethral Operative Findings Urethra: Normal Bladder: Left stent removed without difficulty Radiologic Studies CT: N/A Urogram: N/A Urethrogram: N/A Cystogram: N/A Retrograde Pyelogram(s): None Ultrasound: None KUB: None Complications: None Recommendations: Discussed findings with patient, RTC in 6 wk for f/u (call me if probs), KUB at F/U, Renal Ultrasound at F/U, and Complete 24 hr urine stone panel prior to F/U Comments: well-tolerated; left PCNL site well-healed, suture removed. Post Procedure Evaluation Condition Post Procedure: satisfactory Post Procedure Medications: Still on amoxicillin 500 mg bid; Ricco Garland MD Director, Surgical Stone Disease [facility] [place], [facility] Pager [phone] 10/27/2023 [facility] 10-27-2023 Note HNO ID: [id number] Author: CHRISTA FLANAGAN RN Service: ? Author Type: Registered Nurse Type: Progress Notes Filed: 10/27/2023 13:12 Note Text: UNIVERSAL PROTOCOL / SAFETY CHECKLIST Procedure to be Performed: stent extraction Sign In: A Moment of CARE was completed. Personnel directly involved with the procedure wore the appropriate PPE (Personal Protective Equipment). No special equipment needed. Patient/Surrogate Stated/Verified: PATIENT VERIFIED(optional for EMERGENT procedures): Patient name, Date of , Relevant allergies, and The intended procedure Time Out Communication: Intended patient and procedure match the source documents. Consent documented and matches the intended procedure. Relevant labs, photos, and/or imaging studies have been reviewed. Correct side/site marked and visible. Medications required for procedure verified. Fire risk assessed and interventions discussed. No implant(s) inserted. Sign Out: SIGN OUT (optional for EMERGENT procedures): No specimen collected. All instruments, equipment, possible retained foreign bodies accounted for. Post-procedure follow-up management communicated and Plan of Care Visit completed when applicable. Christa Flanagan RN [facility] 10-21-2023 Note HNO ID: [id number] Author: JACOB PALMER MD Service: Urology Author Type: Resident Type: Progress Notes Filed: 10/21/2023 06:46 Note Text: [facility] UROLOGY PROGRESS NOTE Name: Jesús Nolan Bed: G090 [id number] Date: 10/21/[address] [facility] Urology Service Pager: [phone] ASSESSMENT Jesús Nolan is a 88 year old female with PMH notable for HTN, GERARDO, anemia of chronic disease, CKD and left staghorn calculus, recurrent UTIs, pre-admitted for antibiotics prior to PCNL now 3 Days Post-Op s/p Left PCNL 10/[address] Garland INTERVAL/SUBJECTIVE - Doing well overall - Less agitated, and slept through the night - Voiding well with minimal residue in bladder - No chest pain or SOB -Vital signs within normal limits, afebrile, on RA -Pain: Controlled -N/V: No PLAN Neuro - Pain controlled w/ PRN meds - Psych c/s for agitation, likely postop acute change, Haloperidol PRN and resume home meds CV - Monitor vitals Heme - Daily Hb Ppx: NO SQH. SCDs for DVT ppx Resp - Encouraged IS, deep breathing sating well ID - No leukocytosis. Afebrile. Continue periop Unasyn , will discharge on Oral amoxicillin GI - Regular Diet /Renal: Monitor UOP Dispo/Teaching - Anticipate DC Today vs tomorrow Discussed with attending physician Dr Dada Esteves MD Urology PGY2 [facility] [place] For weekend or after hours issues [place] [phone] Active Problems Anemia of chronic disease, POA- monitor Hb HTM, POA- Home meds resumed Left staghorn calculus, POA- s/p lef PCNL 10/18 Objective Vital Signs BP 156/53 Pulse 84 Temp 36.7 ?C (98.1 ?F) (Oral) Resp 16 Ht 152.4 cm (5') Wt 57 kg (125 lb 10.6 oz) SpO2 97% BMI 24.54 kg/m? Body mass index is 24.54 kg/m?. Input and Output No intake or output data in the 24 hours ending 10/21/23 0644 Physical Exam General:Delirious Wound: Incision clean, dry, and intact Recent Labs 10/20/23 1826 10/19/23 0615 10/18/23 1814 WBC -- 12.49* 18.32* HB -- 11.8 11.8 HCT -- 36.8 37.0 PLT -- 168 165 NA 142 142 144 K -- 3.9 4.0 CHLOR 103 105 106* CO2 25 26 24 BUN 21 25* 25* CREAT 1.90* 2.02* 1.91* GLUC 92 131* 197* Imaging Reviewed [facility] 10-20-2023 Note HNO ID: [id number] Author: LORENA PRESTON lucie Service: Pharmacy Author Type: Pharmacist Type: Plan of Care Filed: 10/20/2023 14:55 Note Text: DISCHARGE MEDICATION REVIEW BY PHARMACY Patient Name: Jesús Nolan Account #: Data Unavailable Admission Date: 10/17/2023 Date of Contact: October 20, 2023 Time of Contact: 2:55 PM Medication list was reviewed by a Pharmacist for drug interactions or drug related problems:Yes Below is a summary of pharmacist recommendations discussed with LIP: No Recommendations at this time from Discharge Medication List. Thank you, Lorena Preston, PharmD, BCPS Solid Organ Transplant and Internal Medicine Clinical Heat And Vent Aircraft Mechanic Phone: [phone] Serum creatinine: 2.02 mg/dL (H) 10/19/23 0615 Estimated creatinine clearance: 15.8 mL/min (A) 10/20/2023 2:55 PM Medication List START taking these medications acetaminophen 500 mg tablet Commonly known as: TYLENOL EXTRA STRENGTH Take 2 tablets by mouth every 6 hours as needed for pain. tamsulosin 0.4 mg Commonly known as: FLOMAX Take 1 capsule by mouth once daily. 30 minutes after the same meal each day. CHANGE how you take these medications amoxicillin 250 mg capsule Commonly known as: AMOXIL Take 1 capsule by mouth two times a day for 14 days. What changed: when to take this CONTINUE taking these medications busPIRone 10 mg tablet Commonly known as: BUSPAR calcitriol 0.25 mcg capsule Commonly known as: ROCALTROL calcium acetate 667 mg tablet Commonly known as: CALPHRON diclofenac 1 % topical gel Commonly known as: VOLTAREN docusate sodium 100 mg capsule Commonly known as: COLACE estradiol 0.01 % (0.1 mg/gram) vaginal cream Commonly known as: ESTRACE Use 1 g vaginally one time a week. ferrous sulfate 325 mg (65 mg iron) tablet furosemide 20 mg tablet Commonly known as: LASIX HIGH POTENCY MULTIVITAMIN 400 mcg Generic drug: multivitamin with folic acid hydrALAZINE 25 mg tablet Commonly known as: APRESOLINE HYDROcodone-Acetaminophen 10-325 mg per tablet Commonly known as: NORCO LORazepam 0.5 mg Commonly known as: ATIVAN melatonin 10 mg Odt polyethylene glycol 3350 17 gram packet pravastatin 10 mg tablet Commonly known as: PRAVACHOL verapamil SR 180 mg CR tablet Commonly known as: CALAN SR VITAMIN C 500 mg tablet Generic drug: ascorbic acid (vitamin C) ASK your doctor about these medications lactulose 10 gram/15 mL solution Where to Get Your Medications These medications were sent to [facility]/pharmacy #[id number] [place] [address] - [address] [place] [address] [place] [address] amoxicillin 250 mg capsule tamsulosin 0.4 mg You can get these medications from any pharmacy You don't need a prescription for these medications acetaminophen 500 mg tablet [facility] 10-20-2023 Note HNO ID: [id number] Author: RICCO GARLAND MD Service: Urology Author Type: Physician Type: Progress Notes Filed: 10/20/2023 14:16 Note Text: STAFF UROLOGY NOTE: I came up and saw this patient who has been acting inappropriately today. I asked her why she was upset and she could not tell me other than to save the eye doctor was not in her room and yet she was told that the doctor was in her room. I asked her if she knew the president's name or where she is and she could not tell me. I then called and spoke with her daughter and expressed my concern. The daughter said that after other surgeries her mother has gotten confused and sometimes reacts badly but usually it is right after the surgery. She said it also can occur when her mom is about to become septic. So I recommended that we hold her discharge and have her more completely evaluated including possibly a neurology evaluation and blood work and so forth. She will check her mom and let us know about her thoughts on this. Ricco Garland MD, FACS Director, Surgical Stone Disease, [facility] Urologic [place] baking [employer] worker, [facility] Pager [phone] 10/20/2023 [facility] 10-20-2023 Note HNO ID: [id number] Author: YESSICA LEE, [place] Service: Pharmacy Author Type: Endless Steamer Tender Type: Plan of Care Filed: 10/20/2023 08:37 Note Text: Insurance investigation completed Patient has active prescription insurance: Yes - Patient's insurance is in-network with [facility] Insurance loaded into [place]: Yes Test claim was completed to verify insurance is active: Successful Any questions, please contact your medication visitor services coordinator. Pager #: [phone] [facility] 10-20-2023 Note HNO ID: [id number] Author: RICCO GARLAND MD Service: Urology Author Type: Physician Type: Progress Notes Filed: 10/20/2023 13:19 Note Text: STAFF UROLOGY NOTE: I saw this patient last night at 7:55 PM, but was unable to document until now. She was doing well and her urine was clear. She stated she was not in any pain. I answered a few questions and explained that our plan was to remove her hernandez catheter Wednesday morning, and if she voided OK, she could probably go home after that. We would plan to remove her ureteral stent and flank suture in about a week. I explained in detail what that inv olves. If she can?t make it because of weather, possibly we can see if a local urologist can take it out in about a week. Ricco Garland MD STAFF UROLOGY NOTE: Earlier today I learned that patient became combative in the middle of last night (after I saw her on rounds, see above note). We have contacted patient's daughter to see her but most likely we will need to hold patient's discharge to evaluate this change in mental status. Her stone came back infected (kfrqkoqih-dqyrvyim-krrrositd) and even though there are no other signs of sepsis at this time, we need to watch for this as well. Ricco Garland MD, FACS Director, Surgical Stone Disease, [facility] Urologic [place] baking [employer] worker, [facility] [employer] Pager [phone] 10/20/2023 [facility] 10-20-2023 Note HNO ID: [id number] Author: JACOB PALMER MD Service: Urology Author Type: Resident Type: Progress Notes Filed: 10/20/2023 06:56 Note Text: [facility] UROLOGY PROGRESS NOTE Name: Jesús Nolan Bed: G090 033/[id number] Date: 10/20/[address] [facility] Urology Service Pager: [phone] ASSESSMENT Jesús Nolan is a 88 year old female with PMH notable for HTN, GERARDO, anemia of chronic disease, CKD and left staghorn calculus, recurrent UTIs, pre-admitted for antibiotics prior to PCNL now 2 Days Post-Op s/p Left PCNL 10/[address] Garland INTERVAL/SUBJECTIVE - Doing well overall - Became agitated overnight, likely delirious - No chest pain or SOB -Vital signs within normal limits, afebrile, on RA -Pain: Controlled -N/V: No - Hernandez draining light punk urine PLAN Neuro - Pain controlled w/ PRN meds CV - Monitor vitals Heme - Daily Hb Ppx: NO SQH. SCDs for DVT ppx Resp - Encouraged IS, deep breathing sating well ID - No leukocytosis. Afebrile. Continue periop Unasyn , will discharge on Laura amoxicillin GI - Regular Diet /Renal: Monitor UOP, TOV this AM back to SNF Dispo/Teaching - Anticipate DC Today Discussed with attending physician Dr Dada Etseves MD Urology PGY2 [facility] Urological and [facility] [place] For weekend or after hours issues [place] [phone] Active Problems Anemia of chronic disease, POA- monitor Hb HTM, POA- Home meds resumed Left staghorn calculus, POA- s/p lef PCNL 10/18 Objective Vital Signs BP 174/91 Pulse 108 Temp 37.3 ?C (99.1 ?F) (Oral) Resp 16 Ht 152.4 cm (5') Wt 57 kg (125 lb 10.6 oz) SpO2 94% BMI 24.54 kg/m? Body mass index is 24.54 kg/m?. Input and Output Intake/Output Summary (Last 24 hours) at 10/20/2023 0644 Last data filed at 10/20/2023 0625 Gross per 24 hour Intake 2840 ml Output 4900 ml Net -2060 ml Physical Exam General:Delirious Wound: Incision clean, dry, and intact : Hernandez catheter present and Urine light pink Recent Labs 10/19/23 0615 10/18/23 1814 10/17/23 1400 WBC 12.49* 18.32* 7.18 HB 11.8 11.8 13.1 HCT 36.8 37.0 40.4 PLT 168 165 194 NA 142 144 143 K 3.9 4.0 4.3 CHLOR 105 106* 103 CO2 26 24 23 BUN 25* 25* 30* CREAT 2.02* 1.91* 2.11* GLUC 131* 197* 129* Imaging Reviewed [facility] 10-19-2023 Note HNO ID: [id number] Author: SERG ROTH LSW Service: Care Management Author Type: Parking Enforcement Specialist Type: Care Mgt Initial Assessment Filed: 10/19/2023 16:08 Note Text: CARE MANAGEMENT: ASSESSMENT AND DISCHARGE PLAN SERVICE DATE: October 19, 2023 SERVICE TIME: 4:04 PM PCP: Brina Cordero MD Primary Contact: Extended Emergency Contact Information Primary Emergency Contact: [facility]ANDA [facility] Mobile Relation: Daughter Admission Status: Observation Insurance Provider: MEDICARE A AND B Discharge Planning requested by: Per Department Practice Potential Transition Plans Assisted/Supervised Living Advance Directives Current Advance Directive: None Shearing Shed Worker Attempted to Assist with AD Completion: Yes Action: Education Provided Current Living Arrangements and Support Lives with: Other person(s) Assisted Living Type of Residence: Assisted Living Facility Care Facility Name: [facility] [phone] Support: Family members How do you manage to accomplish the following: Needs Assistance: Ambulation;Bathe/Shower;Dress;Meals/Meal Prep;Going to the bathroom;Medication Management;Transportation to appointments/community Current Services/Equipment Current Post-Acute Service(s): None Discharge Planning Patient Goal(s): Be able to go home, General wellness [place] of Choice Explained: [place] of [place] Given: No Reason Not Given: No placements necessary Are you interested in bedside delivery of your medications? Yes Discharge Planning Participant(s): Patient;Family Patient/Family Comments: Dtr completed assessment. Pt is extremely [place] Caregiver Assessment: Caregiver is ready, willing and able to meet the patient's needs as recommended by the inter-professional team: Yes Transport at Discharge: Transportation Arrangements: Car Needs Prior to Discharge: Needs Prior to Discharge: None Post-Acute Discharge Plan: Chart reviewed and initial assessment completed. Met with pt at bedside. Pt is very [place]. Vision is limited as well. She gave permission to speak with her dtr, Maranda. Call placed to Maranda. Pt lives in at [facility] ([phone]). The assisted living assists with meals, meds, and some personal care as needed. Plan is to return to assisted living at [place]. Dtr will transport. Call placed to [facility]. Spoke with Mahsa in admissions. She requests nurse to nurse report prior to pt's dc. CM will facilitate. She also asked that pt either arrive with paper scripts for her medications or bedside delivery. It may take their pharmacy a day or two to deliver meds. CM will follow and assist with dc arrangements. SIGNATURE: SAAD Whitmore PATIENT NAME: Jesús Nolan DATE: October 19, 2023 TIME: 4:04 PM CONTACT #: [phone] [facility] 10-19-2023 Note HNO ID: [id number] Author: JACOB PALMER MD Service: Urology Author Type: Resident Type: Progress Notes Filed: 10/19/2023 06:55 Note Text: [facility] UROLOGY PROGRESS NOTE Name: Jesús Nolan Bed: G090 033/[id number] Date: 10/19/2023 After Hours [facility] Service Pager: [phone] ASSESSMENT Jesús Nolan is a 88 year old female with PMH notable for HTN, GERARDO, anemia of chronic disease, CKD and left staghorn calculus, recurrent UTIs, pre-admitted for antibiotics prior to PCNL now 1 Day Post-Op s/p Left PCNL 10/[address] Garland INTERVAL/SUBJECTIVE - Doing well overall - No chest pain or SOB -Vital signs within normal limits, afebrile, on RA, reports some chills overnight -Pain: Controlled -N/V: No - Hernandez draining light old dark blood, flowing well PLAN Neuro - Pain controlled w/ PRN meds CV - Monitor vitals Heme - Daily Hb Ppx: NO SQH. SCDs for DVT ppx Resp - Encouraged IS, deep breathing sating well ID - No leukocytosis. Afebrile. Continue periop Unasyn GI - Regular Diet /Renal: Monitor UOP, maintain Hernandez today, possible TOV in PM depending on urine color Dispo/Teaching - Anticipate DC tomorrow Discussed with attending physician Dr Dada Esteves MD Urology PGY2 [facility] Urological and [facility] [place] For weekend or after hours issues [place] [phone] Active Problems Anemia of chronic disease, POA- monitor Hb HTM, POA- Home meds resumed Left staghorn calculus, POA- s/p lef PCNL 10/18 Objective Vital Signs BP (!) 125/40 Pulse 76 Temp 36.5 ?C (97.7 ?F) (Oral) Resp 18 Ht 152.4 cm (5') Wt 57 kg (125 lb 10.6 oz) SpO2 97% BMI 24.54 kg/m? Body mass index is 24.54 kg/m?. Input and Output Intake/Output Summary (Last 24 hours) at 10/19/2023 0654 Last data filed at 10/19/2023 0605 Gross per 24 hour Intake 3692 ml Output 625 ml Net 3067 ml Physical Exam General: Well-appearing, no acute distress Wound: Incision clean, dry, and intact : Hernandez catheter present and Urine light pink Recent Labs 10/19/23 0615 10/18/23 1814 10/17/23 1400 WBC 12.49* 18.32* 7.18 HB 11.8 11.8 13.1 HCT 36.8 37.0 40.4 PLT 168 165 194 NA -- 144 143 K -- 4.0 4.3 CHLOR -- 106* 103 CO2 -- 24 23 BUN -- 25* 30* CREAT -- 1.91* 2.11* GLUC -- 197* 129* Imaging Reviewed [facility] 10-18-2023 Note HNO ID: [id number] Author: JACOB PALMER MD Service: Urology Author Type: Resident Type: Progress Notes Filed: 10/18/2023 18:13 Note Text: [facility] [place] UROLOGY PROGRESS NOTE Name: Jesús Nolan Bed: G090 033/[id number] Date: 10/18/[address] [facility] Urology Service Pager: [phone] ASSESSMENT Jesús Nolan is a 88 year old female with PMH notable for HTN, GERARDO, anemia of chronic disease, CKD and left staghorn calculus, recurrent UTIs, pre-admitted for antibiotics prior to PCNL now Day of Surgery s/p Left PCNL 10/[address] Garland INTERVAL/SUBJECTIVE - Doing well post op - No chest pain or SOB -Vital signs within normal limits, afebrile, NC 2L 99% -Pain: Controlled -N/V: No - Hernandez draining light pink urine - CXR in PACU showed no Pneumothorax PLAN Neuro - Pain controlled w/ PRN meds CV - Monitor vitals Heme - Daily Hb Ppx: NO SQH. SCDs for DVT ppx Resp - Encouraged IS, deep breathing sating well ID - No leukocytosis. Afebrile. Continue periop Unasyn GI - Regular Diet /Renal: Monitor UOP, maintain Hernandez until tomorrow Dispo/Teaching - Anticipate DC tomorrow AM Discussed with attending physician Dr Dada Esteves MD [facility]rology PGY2 [facility] [place] For weekend or after hours issues [place] [phone] Active Problems Anemia of chronic disease, POA- monitor Hb HTM, POA- Home meds resumed Left staghorn calculus, POA- s/p lef PCNL 10/18 Objective Vital Signs BP 146/55 Pulse 68 Temp 36 ?C (96.8 ?F) (Temporal) Resp 18 Ht 152.4 cm (5') Wt 57 kg (125 lb 10.6 oz) SpO2 99% BMI 24.54 kg/m? Body mass index is 24.54 kg/m?. Input and Output Intake/Output Summary (Last 24 hours) at 10/18/2023 1813 Last data filed at 10/18/2023 1658 Gross per 24 hour Intake 2267 ml Output 150 ml Net 2117 ml Physical Exam General: Well-appearing, no acute distress Wound: Incision clean, dry, and intact : Hernandez catheter present and Urine light pink Recent Labs 10/17/23 1400 WBC 7.18 HB 13.1 HCT 40.4 PLT 194 NA 143 K 4.3 CHLOR 103 CO2 23 BUN 30* CREAT 2.11* GLUC 129* Imaging Reviewed [facility] 10-18-2023 Note HNO ID: [id number] Author: JON CERDA SRNA Service: ? Author Type: Student Type: Anesthesia Procedure Notes Filed: 10/18/2023 08:34 Note Text: ANESTHESIOLOGY PROCEDURE NOTE PIV General Information Procedure Start Time/Medication Administration: 10/18/2023 7:40 AM Staffing Anesthesiologist: Esvin Allen MD Performed by: anesthesiologist Preparation Sterility Preparation: hand hygiene performed prior to procedure, surgical cap used, mask used Site Prep: alcohol Procedure Details Indication: need for IV access Needle Size/Type: 18 gauge angiocath Orientation: Right Location: Forearm Imaging Guidance Used: No SIGNATURE: CHANDA Carias PATIENT NAME: Jesús Nolan DATE: October 18, 2023 TIME: 8:33 AM CSN: [id number] [facility] 10-18-2023 Note HNO ID: [id number] Author: JON CERDA SRNA Service: ? Author Type: Student Type: Anesthesia Procedure Notes Filed: 10/18/2023 08:33 Note Text: ANESTHESIOLOGY PROCEDURE NOTE PIV General Information Procedure Start Time/Medication Administration: 10/18/2023 7:55 AM Patient Location: OR Staffing Anesthesiologist: Esvin Allen MD Performed by: anesthesiologist Preparation Sterility Preparation: hand hygiene performed prior to procedure, surgical cap used, mask used, skin prep agent completely dried prior to procedure Sterility Technique Not Completely Performed Due to Extreme Emergency: No Site Prep: alcohol Procedure Details Indication: need for IV access Needle Size/Type: 18 gauge angiocath Orientation: Left Location: Wrist Imaging Guidance Used: No SIGNATURE: CHANDA Carias PATIENT NAME: Jesús Nolan DATE: October 18, 2023 TIME: 8:32 AM CSN: [id number] [facility] 10-18-2023 Note HNO ID: [id number] Author: JON CERDA SRNA Service: ? Author Type: Student Type: Anesthesia Procedure Notes Filed: 10/18/2023 08:28 Note Text: ANESTHESIOLOGY PROCEDURE NOTE Airway General Information Procedure Start Time/Medication Administration: 10/18/2023 7:54 AM Patient location during procedure: OR Timeout Performed Pre-procedure: timeout performed Consent Obtained: Yes Patient identity confirmed: arm band and patient Staffing Anesthesiologist: Esvin Allen MD SRNA: Jon Cerda SRNA Performed by: CHANDA Indications and Patient Condition Indications for airway management: anesthesia Preoxygenated: yes anesthesia circuit Patient position: sniffing Cricoid Pressure: No Manual In-Line Stabilization: No Difficult Mask: No Airway Accessory: oral airway Final Airway Details Final airway type: endotracheal airway Final Endotracheal Airway: ETT Cuffed: yes Successful intubation technique: video laryngoscopy Devices used: Mensah Endotracheal tube insertion site: oral Blade size: #3 ETT size (mm): 7.0 Measured from: gums Measurement (cm): 20 Cormack-Lehane Classification: grade I - full view of glottis Number of attempts at approach: 1 Failed airway: no Unrecognized esophageal intubation: no Airway not difficult SIGNATURE: CHANDA Carias PATIENT NAME: Jesús Nolan DATE: October 18, 2023 TIME: 8:27 AM CSN: [id number] [facility] 10-17-2023 Note HNO ID: [id number] Author: RONEL JUAN, MARYJANE Service: Nursing Author Type: Registered Nurse Type: Progress Notes Filed: 10/17/2023 14:19 Note Text: Patient is here as an direct admit. Patient is in a wheelchair. Per daughter, pt is unable to walk, can pivot with a walker. 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 Alert and oriented. Room air. Daughter maranda and son in law at bedside. [facility] 10-17-2023 Note HNO ID: [id number] Author: RONEL JUAN RN Service: Nursing Author Type: Registered Nurse Type: Progress Notes Filed: 10/17/2023 11:01 Note Text: [place] [phone] Urology: OvidioJesús G90/33 patient is here as a direct admit. Awaiting orders. Ronel Juan RN [facility] 09-09-2023 Evaluation note Encounter Date Diagnosis Assessment Notes Aug, Acute UTI (ICD-10 - N39.0) Finish antibiotic prescribed at [facility]. 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 [facility] Other 12-12-2023 NotePatient Outreach (UROLMN) OVIDIOJESÚS ([id number]) 1935 F Date Time Provider Department 09/07/23 GARLAND, RICCO UROLMN During your visit today, we recorded the following information about you: Allergies As of Date: 09/07/2023 (No Known Allergies) Date Reviewed: 09/07/2023 Reviewed by: Karen Calvillo OCCA - Fully Assessed Visit Diagnosis:Screening for genitourinary condition [Z13.89] Order(s):URINALYSIS, REFLEX MICROSCOPIC [[id number]] Order #: [id number]. #:[id number] Prescriptions as of 09/10/2023 - VITAMIN C [...] hip surgery [Z98.890] 09/07/2023 Encounter Status:Closed by [employer], PRODUSER on 09/10/23[facility] 09-07-2023 NoteHNO ID: [id number] Author: Ricco Garland MD Service: ? Author Type: Physician Type: Progress Notes Filed: 09/07/2023 7:45 PM Note Text: STAFF UROLOGY NOTE: We had the pleasure of seeing Jesús Nolan in our Mult[facility] today. She is with her daughter who did nearly all the talking since the patient's hearing aids are broken and she has not yet received new ones, so she could hardly hear me. Though not listed in [employer], patient's daughter indicates Dr. Harsh Clayton recommended [...] based on size, location, hounsfield units and qwpi-hg-fxheg distance: 0% 3. Ureteroscopy - risks of [...] with more than 50% of the total pzax-ud-agtz time of the visit devoted to patient counseling/coordination of care. Ricco Garland MD, FACS Director, Surgical Stone Disease, [facility] Urologic [place] baking [employer] worker, [facility] [employer] Pager [phone] 09/07/2023[facility]09-15-2023 Evaluation note* Encounter Date Diagnosis Assessment Notes Treatment Notes Treatment Clinical Notes May, Bilateral impacted cerumen (ICD-10 - H61.23) [facility] Other 08-30-2023 Evaluation note* Encounter Date Diagnosis [...] chronic disease (ICD-10 - D63.8) As above. [facility] Other Evaluation noteNo InformationNort Rue La La Other Evaluation note* Diagnosis Onset Date Resolution Status Acute metabolic encephalopathy acute [place]ST[place] (acute kidney injury) ac debi Constipation acute Dementia acute Hallucinations acute Hypertension acute Right nephrolithiasis acute Staghorn calculus acute UTI (urinary tract infection) acute [facility] Work Phone: Evaluation note* Diagnosis Hydronephrosis with urinary obstruction due to renal calculus- Primary Nephrolithiasis Calculus [facility] Nephrolithiasis- Primary Calculus of kidney Nephrolithiasis Calculus of kidney documented in this encounter [facility] general Narrative - Reported* Type [...] History CHOLECYSTECTOMY Hospitalization History SEE SURGICAL HX Invarium Other Reason for referral (narrative)* Diagnostic Procedure Only (Routine) - Pending Review Specialty Diagnoses / Procedures Referred By Megha frederick Referred To Contact MOLECULAR & FUNCTIONAL IMAGING Diagnoses Hydronephrosis with urinary obstruction due to renal calculus Procedures NM RENAL FLOW/FXN W PHARM KIDNEY IMG MORPHOLOGY VASCULAR FLOW 1 W/RX Ricco Garland MD [address] [place] [address] Molecular & Functional Imaging [address] [place] [address] Referral ID Status Reason Start Date Expiration Date Visits Requested Visits Authorized [id number] Pending Review Auto-Generat ed Referral 3 10/07/2024 1 1 [facility] Advance Directives No Advanced Directives Records FoundDocuments on File Type Date Recorded Patient Last Greaser Expl anation Advance Directives and Living Will Power of Buyer Agent Documents on File Type Date Recorded Patient Last Greaser Expl anation Advance Directives and Living Will Power of Buyer Agent Latest Code Status on File Code Status Date Activated Date Inactivated Comments DNR-CCA 04/05/2020 7:40 AM Full Code 04/02/2020 11:53 PM 04/05/2020 7:40 AM Documents on File Type Date Recorded Patient Last Greaser Expl anation Advance Directives and Livin g Will Advance Directives and Livin g Will 04/09/2020 4:57 PM Power of Buyer Agent Power of Buyer Agent 04/09/2020 4:57 PM Latest Code Status on File Code Status Date Activated Date Inactivated Comments DNR-CCA 04/05/2020 7:40 AM 04/06/2020 2:39 PM Full Code 04/02/2020 11:53 PM 04/05/2020 7:40 AM Documents on File Type Date Recorded Patient Last Greaser Expl anation ACP-Advance Directive ACP-Advance Directive 04/09/2020 4:57 PM ACP-Power of Buyer Agent ACP-Power of Buyer Agent 04/09/2020 4:57 PM DNR Documentation 04/09/2020 4:57 PM Latest Code Status on File Code Status Date Activated Date Inactivated Comments Full Code 05/10/2020 3:57 PM Full Code 05/10/2020 10:16 AM 05/10/2020 3:48 PM DNR-CCA 04/05/2020 7:40 AM 04/06/2020 2:39 PM Documents on File Type Date Recorded Patient Last Greaser Expl anation ACP-Advance Directive ACP-Advance Directive 04/09/2020 4:57 PM ACP-Do Not Resuscitate 05/16/2020 1:04 PM ACP-Power of Buyer Agent ACP-Power of Buyer Agent 04/09/2020 4:57 PM DNR Documentation 04/09/2020 4:57 PM Latest Code Status on File Code Status Date Activated Date Inactivated Comments Full Code 05/10/2020 3:57 PM 05/15/2020 9:57 PM Full Code 05/10/2020 10:16 AM 05/10/2020 3:48 PM DNR-CCA 04/05/2020 7:40 AM 04/06/2020 2:39 PM Documents on File Type Date Recorded Patient Last Greaser Expl anation ACP-Advance Directive ACP-Advance Directive 04/09/2020 4:57 PM ACP-Advance Directive 06/13/2020 10:59 AM ACP-Do Not Resuscitate 05/16/2020 1:04 PM ACP-Do Not Resuscitate ACP-Do Not Resuscitate 06/13/2020 10:59 AM ACP-Power of Buyer Agent ACP-Power of Buyer Agent 04/09/2020 4:57 PM DNR Documentation 04/09/2020 4:57 PM Documents on File Type Date Recorded Patient Last Greaser Expl anation ACP-Advance Directive ACP-Do Not Resuscitate ACP-Power of Buyer Agent ACP-Advance Directive 06/13/2020 10:59 AM ACP-Do Not Resuscitate 06/13/2020 10:59 AM ACP-Do Not Resuscitate 05/16/2020 1:04 PM ACP-Advance Directive 04/09/2020 4:57 PM ACP-Do Not Resuscitate 04/09/2020 4:57 PM ACP-Power of Buyer Agent 04/09/2020 4:57 PM Advance Directive Response Recorded Date/ Time Advance Directives No August 31, 2023 8:19pm Reason for Referral Status Reason Specialty Diagnoses / Procedures Referre d By Contact Referred To Contact Open Radiology Diagnoses Chronic kidney disease, stage IV (severe) ([facility]) Procedures US RENAL COMPLETE Iboaya, Benahili U, DO Status Reason Specialty Diagnoses / Procedures Referred By Contact Referred To Contact Open Specialty Services Required Physical Therapy Diagnoses General weakness Ricco Sánchez MD [address] [place] [address], [place] [address] Assessments Diagnosis Chronic kidney disease, stage IV (severe) (HCC) Chronic kidney disease, Stage IV (severe) Diagnosis Closed displaced intertrochanteric fracture of left femur, initial encounter ([facility]) Diagnosis Pain of left hip joint [...] Care Everywhere. * Hip Fracture: Surgery: Post-op (Irish) documented in this encounter* Discharge Instr - Diet* Sofía Esparza RD, LD - 04/03/2020 8:30 AM EDT ? Good [...] at most local grocery stores, pharmacies, and freshbag-stores. ? If you have any questions about your diet or nutrition, call the hospital and ask for the dietitian. * Discharge Instr - GERALD* Jon Rey - 04/04/2020 7:28 AM EDT Continuity of Care Form Patient Name: Jesús Nolan : 1935 Admit date: 04/02/2020 Discharge date: 04/06/2020 Code Status Order: DNR-CCA Advance Directives: Admitting Physician: Ricco Sánchez MD PCP: Justino Dhaliwal DO Discharging Nurse: Jon Rey RN Discharging Hospital Unit/Room#: 0311/0311-01 Discharging Unit Phone Number: [phone] Emergency Contact: Extended Emergency Contact Information Primary Emergency Contact: Isaias Nolan Address: [address] [place] [address] [address] [place] [address] Relation: Spouse Secondary Emergency Contact: Maranda Da [...] Dependent Dressing Dependent Toileting Dependent Feeding Independent Senior Communications Engineer Assisted Med Delivery whole Wound Care Documentation [...] Readmission: 15 Discharging to Facility/ Agency Name: [facility] Address:[address] [place] [address] Dialysis Facility (if applicable) Name: Address: Dialysis Schedule: Phone: Fax: Pipe Out Worker/Parking Enforcement Specialist signature: PHYSICIAN SECTION Prognosis: {Prognosis:1838861146} Condition at Discharge: {MH Patient Condition:604792947} Rehab Potential (if transferring to Rehab): {Prognosis:6789468970} Recommended Labs or Other Treatments After Discharge: Physician Certification: I certify the above information and transfer of Jesús Nolan is necessary for the continuing treatment of the diagnosis listed and that she requires Alf Facility for greater 30 days. Update Admission H&P: {CHP DME Changes in HandP:249400979} PHYSICIAN SIGNATURE: {Esignature:354044734} documented in this encounter* Discharge Instr - GERALD* Nirmala Lanier RN - 05/14/2020 2:28 PM EDT Continuity of Care Form Patient Name: Jesús Nolan : 1935 Admit date: 05/10/2020 Discharge date: 05/15/2020 Code Status Order: Full Code Advance Directives: Advance Care Flowsheet Documentation Date/Time Healthcare Directive Type of Healthcare Directive Copy in Chart Healthcare Agent Appointed Healthcare Agent's Name Healthcare Agent's Phone Number 05/10/20 [phone] Unknown, patient unable to respond due to medical condition -- -- -- -- -- Admitting Physician: Chele Lagos MD PCP: Justino Dhaliwal DO Discharging Nurse: Nirmala WESLEY Discharging Hospital Unit/Room#: 7K-19/019-A Discharging Unit Emergency Contact: Extended Emergency Contact Information Primary Emergency Contact: Isaias Nolan Address: [address] [place] [id number] Relation: Spouse Secondary Emergency Contact: Maranda Da Silva Relation: Child Past Surgical History: Past Surgical History: Procedure Laterality Date CHOLECYSTECTOMY HYSTERECTOMY JOINT REPLACEMENT knee REVISION TOTAL HIP ARTHROPLASTY Left 05/10/2020 HARDWARE REMOVAL LEFT HIP, CONVERSION TO LEFT TOTAL HIP performed by Chele Lagos MD at [facility] Immunization History: There is no [...] Assisted Dressing Assisted Toileting Assisted Feeding Independent Senior Communications Engineer Assisted Med Delivery whole Wound Care Documentation [...] Readmission: 20 Discharging to Facility/ Agency Name: [facility] Address: [place] [address] Dialysis Facility (if applicable) Name: Address: Dialysis Schedule: Phone: Fax: Pipe Out Worker/Parking Enforcement Specialist signature: ICIAN SECTION Prognosis: Fair Condition at Discharge: Stable Rehab Potential (if transferring to Rehab): Fair Recommended Labs or Other Treatments After Discharge: n/a Physician Certification: I certify the above information and transfer of Jesús Nolan is necessary for the continuing treatment of the diagnosis listed and that she requires Alf Facility for greater 30 days. Update Admission [...] not made for you at discharge, call [phone] ([place] office) or [phone] ([place] office) to schedule an appointment for 8 [...] Everywhere. * Hip Replacement: Posterior: Precautions: Post-op (Irish) * Hip Replacement Surgery: Posterior: Post-op (Irish) documented in this encounter* Instructions* Leta Irwin RN - 05/30/2020 Wound Management Patient Discharge Instructions CALL [phone] for questions regarding care of your wounds. [...] Put on bandages as your doctor or occupational medicine specialist says. Keep healthy tissue around the [...] Where can you learn more? Go to [email or web address] and sign in to your Match account. Enter F114 in the Search Health Information box to learn more about Pressure Injuries: Care Instructions. If you do not have an account, please click on the Sign Up Now link. Current as of: November 29, 2019 Content Version: 12.5 [employer]. Care instructions adapted under license by [employer] | [employer]. If you have questions about a medical condition or this instruction, always ask your healthcare professional. [employer] disclaims any warranty or liability for your use of this information. Wound Management Patient Discharge Instructions CALL [phone] for questions regarding care of your wounds. [...] Provider Department Center 06/27/2020 10:45 AM NORAH CruzZ NATHAND Mehran Nutrition Therapy Recommendations- 1. Continue to have 3 well balanced meals with a variety of lean meats, fresh fruits, vegetables, whole grains and low fat dairy. 2. Continue daily multivitamin with minerals and Bill to assist with wound healing needs. 3. Include protein foods with meals and snacks to aid healing needs (eggs, fish, chicken, etc.) Comments: We hope we gave you VERY GOOD care today! documented in this encounter* Instructions* Crystal Jones RN - 06/27/2020 Wound Management Patient Discharge Instructions CALL [phone] for questions regarding care of your wounds. [...] 07/18/2020 Wound Management Patient Discharge Instructions CALL [phone] for questions regarding care of your wounds. [...] 09/12/2020 Wound Management Patient Discharge Instructions CALL [phone] for questions regarding care of your wounds. [...] 08/15/2020 Wound Management Patient Discharge Instructions CALL [phone] for questions regarding care of your wounds. [...] Time Provider Department Center 09/12/2020 10:45 AM Glenn Martínez DPM [facility] [place] Comments: We hope we gave you VERY GOOD care today! documented in this encounter Hospital Course Note Admission Information Patien t: Jesús Nolan : 1935 Admission date: 02/09/2020 Discharge date: [...] included)... History of Present Illness * Yolanda Mansfiedl RN - 04/06/2020 11:59 AM EDT Called [...] know that pt is discharged back to [facility]. Voicemail left for to return call. * oJn Rey - 04/06/2020 7:53 AM EDT Pt [...] 04/05/2020 7:53 AM EDT Occupational Therapy Facility/Department: [facility] Daily Treatment Note NAME: Jesús Nolan : 1935 Date of Service: 04/05/2020 Discharge Recommendations: Continue to assess pending progress, Subacute/Alf Facility, Patient would benefit from continued therapy [...] Pt will complete grooming ADL tasks with Ruth to increase ability to complete ADL tasks. Short term goal 3: Pt will sit at EOB with CGA x5 minutes to increase endurance and trunk control for participation in ADL and functional tasks. Short term goal 4: Pt will engage in TB ADL with minimal prompting and assistance to increase participation in functional tasks. Therapy Time Individual Concurrent Group Co-treatment Time In 734 Time Out 0759 Minutes 24 JAE Simpson [...] Pt uncooperative with assessment. Eyes closed upon freelance writer entering room, easily aroused. Pt yells at freelance writer to leave her alone. Pt tachypneic [...] Patient has not eaten any meals today. Patient Care Secretary attempted to help feed the patient. Patient refused. * Robinson Ellsworth PTA - 04/04/2020 2:38 PM EDT Physical Therapy Facility/Department: [facility] Daily Treatment Note NAME: Jesús Nolan : 1935 Date of Service: 04/04/2020 Discharge Recommendations: Continue to assess pending progress, Subacute/Alf Facility, ECF with PT, Patient would benefit [...] completed today in supine with therapist assist. DANIEOM as needed. Goals Short term goals Time Frame for Short term goals: 10 days Short term goal 1: Pt will perform bed mobility with CGA to decrease level of caregiver assistance. Short term goal 2: Pt will perform transfers with Ruth to improve functional mobility. Short term goal 3: Pt will ambulate 50ft with RW and Ruth to improve functional ambulation. Short term goal [...] is approved by insurance to return to [facility]. SAAD Hough * Caprice Echeverria RN - 04/04/2020 11:12 AM EDT PALLIATIVE CARE is visiting with Jesús. Jesús is very confused. She is talking but [...] Tells me that she has been at [facility] for 6 weeks now for therapy after a fractured hip. Her confusion has gradually gotten worse, more so lately. Support given. states that she has been unable to walk lately, which is the reason she was brought to the hospital. Admitted with cellulitis. Spiritual screening done. Tells me that the russian language instructor visited with them yesterday. Denies any spiritual needs at this time. Emotional support given. DNR paper order form to be placed on paper chart for signature. Will continue to follow and support. Caprice Echeverria RN, [facility] Palliative Care Nurse Coordinator 04/04/2020 11:24 AM * Alicia Miller RN - 04/04/2020 9:04 AM EDT Patient resting quietly in bed. No complaints at this time. Patient tolerated medications well. * Alicia Miller RN - 04/04/2020 8:45 AM EDT Patient refuses breakfast at this time. * Natalie Guzman PTA - 04/04/2020 8:39 AM EDT Physical Therapy Facility/Department: [facility] Daily Treatment Note NAME: Jesús Nolan : 1935 Date of Service: 04/04/2020 Discharge Recommendations: Continue to assess pending progress, Subacute/Alf Facility, ECF with PT, Patient would benefit [...] goal 2: Pt will perform transfers with Ruth to improve functional mobility. Short term goal 3: Pt will ambulate 50ft with RW and Ruth to improve functional ambulation. Short term goal [...] Time: zero Ricco Sánchez M.D. * Alicia Miller RN - 04/04/2020 7:59 AM EDT Patient [...] like for her mother to return to [facility] following this hospitalization. Daughter is aware, per this freelance writer, that [facility] does have Covid positive resident in their facility at this time. Referral made to [facility] via telephone voicemail message left for Kae Orta re:above. [facility] will begin pre-cert and notify PAVING FOREMAN when Patient is able to return. SAAD Koroma 04/03/2020 * Iza Hein LSW - 04/03/2020 3:15 PM EDT Met with Patient to discuss discharge planning. Unable to complete assessment due to Patient confusion. Telephone voicemail message left for Patient's spouse and for her daughter. Spoke with Admission's admissions representative at [facility] where Patient was residing at the time ofher hospitalization. She states that [facility] will take Patient back if she or her family chooseto send her back at this time with the knowledge that [facility] has Covid positive Patient in their facility at this time. PAVING FOREMAN will await a telephone call back from Patient's family to determine discharge planning goals. SAAD Koroma 04/03/2020 * Gretchen Chapa, SECOND OFFICER - 04/03/2020 3:09 PM EDT [facility] Inpatient/Observation/Outpatient Rehabilitation Date: 04/03/2020 Patient Name: Jesús Nolan [x] Inpatient Acute/Observation [] Outpatient : [...] 04/03/2020 9:30 AM EDT Physical Therapy Facility/Department: [facility] Initial Assessment NAME: Jesús Nolan : 1935 Date of Service: 04/03/2020 Discharge Recommendations: Continue to assess pending progress, Subacute/Alf Facility, ECF with PT, Patient would benefit [...] History Lives With: Alone Type of Home: Facility([facility]) Home Layout: One level Home Equipment: Rolling walker ADL Assistance: Needs assistance Homemaking Assistance: Needs assistance IADL Comments: Limited hx provided by pt d/t impaired cognition. Pt resided at [facility], butunable to determine what length of time. Per EMR, pt went to [facility] for rehab following L hip fx. Cognition [...] goal 2: Pt will perform transfers with Ruth to improve functional mobility. Short term goal 3: Pt will ambulate 50ft with RW and Ruth to improve functional ambulation. Short term goal 4: Pt will tolerate 20-30mins ther ex/act to improve endurance for ADLs and functional tasks. Therapy Time Individual Concurrent Group Co-treatment Time In 717 Time Out 0748 Minutes 30 Astrid Alan, PT , DPT * Sofía Esparza RD, [...] 5. Fluid Accumulation-Mild fluid accumulation, Extremities 6. Veterinary Meat Inspector Strength-Not measured Recent Labs 04/02/20 1445 04/02/20200404/03/20 0555 NA 137 139 140 K 2.9* 3.4* 3.5* CL 92* 96* 96* CO2 29 28 26 BUN 37* 35* 30* CREATININE 1.41* 1.33* 1.17* GLUCOSE 200* 149* 157* GFR Lab Results Component Value Date [facility] 3.3 03/25/2020 [facility] 4.4 02/19/2012 Nutrition Risk Level: Moderate Nutrient Needs: Estimated Daily Total Kcal: 2424-5453 Estimated Daily Protein (g): 55-65 Estimated Daily [...] Usual Body Wt: 159 lb (72.1 kg) [place] Body Wt: 100 lb (45.4 kg), % [place] Body 158% BMI Classification: BMI 30.0 - 34.9 Obese Class I Nutrition Interventions: Continue current diet Continued Inpatient Monitoring, Education Completed Nutrition Evaluation: Evaluation: Goals set Goals: >75% PO Monitoring: Meal Intake, Supplement Intake, Weight, Pertinent Labs, Chewing/Swallowing, Patient/Family Education, Constipation Contact Number: [phone] * Sonali Avitia RP - 04/03/2020 8:11 AM EDT Piperacillin-Tazobactam Extended [...] You, Sonali Avitia04/03/20208:11 AM * Vernell Stephenson RP - 04/03/2020 7:[address] [facility] Department of Pharmacy Pharmacy Renal Adjustment Note Jesús Nolan is a 84 y.o. female. Pharmacist [...] ml/min. Vernell Stephenson,04/03/2020,7:29 AM * Vernell Stephenson RPH - 04/03/2020 7:[address] [facility] Department of Pharmacy Pharmacy Renal Adjustment Note Jesús Nolan is a 84 y.o. female. Pharmacist [...] Garcia RN - 04/03/2020 5:58 AM EDT Patient Care Secretary and 2 RNs came change's patient's bed linen, gown, and brief at this time. Corrine care was performed. Patient is suddenly a lot more pleasant, cooperative, and able to hold a conversation. Patient is now orientated to person, birthday and place. Patient states she does not know the month. Patient Care Secretary re orientated patient to month. Patient Care Secretary is going to attempt to regain IV access. Leads were also off and reapplied. * Vicki Garcia RN - 04/03/2020 5:40 AM EDT Brim Pouncing Machine Operator alerted freelance writer that patient had removed her brief and pull out her IV at this time. * Vicki Garcia RN - 04/03/2020 2:45 AM EDT Patient refused being repositioned at this time. Don't touch me, patient stated. * Vicki Garcia RN - 04/03/2020 2:28 AM EDT Navigator completed to freelance writer's best ability. Multiple items of the [...] to leave the room at this time. Patient Care Secretary will continue to monitor. * Vicki Garcia [...] Garcia RN - 04/03/2020 12:43 AM EDT Patient Care Secretary attempted to give verpamil, xanax and tylenol crushed in pudding at this time. Patient refused, patient smacked freelance writer and swore at freelance writer and with freelance writer's final attempt after explaining it had pain medication in the pudding to help her feel better, patient smacked the spoon out of freelance writer'antonio and onto the floor, stating it smells like shit and I dont want no pills. Patient Care Secretary was able to roads superintendent patient to IV fluids however patient was mad at freelance writer for doing so and swatted at freelance writer. * Vicki Garcia RN - 04/03/2020 12:28 AM EDT Patient stated get the hell out of here and that myself and Valerie RN are a pain in the ass and need to get out. Patient Care Secretary is attempting to give medications at this time. * Vicki Garcia RN - 04/03/2020 12:10 AM EDT Heart monitor applied at this time by freelance writer. While applying heart monitor tabs patient was verbally agressive stating leave me alone, stop touching me and will you go downstairs and stay down there!? * Alan Jalloh [facility] - 04/03/2020 12:10 AM EDT Pharmacy Note Renal Dose Adjustment Jesús Nolan is a 84 y.o. female. Pharmacist assessment of renally cleared medications. Recent Labs 04/02/20 1445 04/02/202004 BUN 37* 35* Recent Labs 04/02/20 1445 04/02/202004 CREATININE 1.41* 1.33* CrCl cannot be calculated (Unknown ideal weight.). Estimated CrCl using [place] Body Weight: 23.4 mL/min (based on IBW 45.5 kg) Height: Ht Readings from Last 1 Encounters: 03/23/20 5' (1.524 m) Weight: Wt Readings from Last 1 Encounters: 03/23/20 159 lb (72.1 kg) The following medication dose has been adjusted based upon renal function per P&T Guidelines: Unasyn 1.5 gm IV every 8 hours changed to 1.5 gm IV every 12 hours. Alan Jalloh [facility] 04/03/2020 12:10 AM * Vicki Garcia RN - 04/03/2020 12:03 AM EDT Patient is disorientated x4. Patient stated I do not have a name. Did not respond when asked whenpatient was born multiple times. Patient stated we're at [facility]'s house when replying to location and stated no what was the month. Patient unable to answer questions at this time due to disorientation. ER nurses states hasnot seen weeks and was unable to speak on her care. Patient is from [facility], freelance writer will review the paperwork sent over by [facility]. Patient is resting with eyes closed at this time, patient is confused and opens eyes occasional when spoken to. * Alan Jalloh [facility] - 04/03/2020 12:03 AM EDT Pharmacy Note Renal Dose Adjustment Jesús Nolan is a 84 y.o. female. Pharmacist assessment of renally cleared medications. Recent Labs 04/02/20 1445 04/02/202004 BUN 37* 35* Recent Labs 04/02/20 1445 04/02/202004 CREATININE 1.41* 1.33* CrCl cannot be calculated (Unknown ideal weight.). Estimated CrCl using [place] Body Weight: 23.42 mL/min (based on IBW 45.5 kg) Height: Ht Readings from Last 1 Encounters: 03/23/20 5' (1.524 m) Weight: Wt Readings from Last 1 Encounters: 03/23/20 159 lb (72.1 kg) The following medication dose has been adjusted based upon renal function per P&T Guidelines: Enoxaparin 40 mg subcutaneously once daily changed to enoxaparin 30 mg subcutaneously once daily. Alan Jalloh [facility] 04/03/2020 12:03 AM * Vicki Garcia RN - 04/02/2020 11:20 PM EDT [facility] from ER via bed at this time. Patient was moved over to bed via flat sheet with 4 nurses. Patient unable to assist. documented in this encounter* Nirmala Lanier RN - 05/15/2020 3:50 PM EDT Report called to RN at [facility] in [place]. Facility will accept patient after 10pm when LACPcan pick her up. * Constantin Escobedo MD - 05/15/2020 11:58 AM EDT Hospitalist Progress Note Patient: Jesús Nolan [facility] 1935 Acct: [id number] PCP: Justino Dhaliwal DO Date of Admission: [...] hypertension Hospital Course: Initial admission HPI by product safety consultant physician reviewed as below: 84-year-old female [...] [] Rehab [] Psych [] SNF [] [facility] [] Other- Code Status: Full Code PT/OT Eval Status: * Katarina Pike, CARBON LAMP CLEANER - [place] - 05/15/2020 11:39 AM EDT Orthopaedic Progress [...] dressings prn PT/OT dvt ppx * Bettie Chavez, SECOND OFFICER - 05/14/2020 12:06 PM EDT [facility] INPATIENT PHYSICAL THERAPY DAILY NOTE [facility] 7K - 7K-19/019-A Time In: 1125 Time Out: 1149 Minutes: 24 Date: 05/14/2020 Patient Name: Jesús Nolan, Gender: female : 1935 (84 y.o.) [...] Function: Lives With: Alone Type of Home: Facility([facility] x6-7 months) ADL Assistance: Needs assistance(recently requiring assist with all at [facility]) Homemaking Assistance: (dependent on staff) Ambulation Assistance: Needs assistance Transfer Assistance: Needs assistance Additional Comments: Pt reports being a long time since she has walked, reports living at [facility] x6-7 months, was starting to work on [...] functional mobility. Functional Outcome Measures: Completed AM-[facility] Inpatient Mobility Raw Score : 8 AM-[facility] Inpatient T-Scale Score : 28.52 ASSESSMENT: Assessment: Patient progressing toward established goals. Activity Tolerance: Patient tolerance of treatment: fair. Pt pleasantly confused during session. Equipment Recommendations:Equipment Needed: No Discharge Recommendations: Subacute/Alf Facility Plan: Times per week: 4-5x O [...] A x 2 for increased functional mobility. remote computer terminal operator goals Time Frame for halfway goals : NA due to short length of stay. Following session, patient left in safe position with all fall risk precautions in place. * Chele Lagos MD - 05/14/2020 9:42 AM EDT Physician Progress Note PATIENT: JESÚS NOLAN CSN #: [id number] : 1935 ADMIT DATE: 05/10/2020 9:36 AM [...] Treatment: IVF and H/H monitoring Thank you! STEVO WallsN,RN, CRCR RN Clinical Floriculture Professor P: [phone] Options provided: -- Acute blood loss anemia [...] LAGOS MD 05/14/2020 9:41 AM * Katarina Pike, [employer] [place] - 05/14/2020 8:35 AM EDT Orthopaedic Progress [...] 7:54 AM EDT Hospitalist Progress Note Patient: Jesús Nolan Unit/Bed:[address] [place] [address] Date of : 1935 Acct: [id number] PCP: Justino Dhaliwal DO Date of Admission: [...] reviewed in chart review snap shot in [facility] CC: Consult for medical management HPI: Initial admission HPI by product safety consultant physician reviewed as below: 84-year-old female [...] 102 105 CO2 24 23 24 BUN 18 CREATININE 1.1 1.0 1.1 CALCIUM 7.7* [...] Please excuse my TYPOS! * Katarina Pike, [employer] [place] - 05/13/2020 11:30 AM EDT Orthopaedic Progress [...] DVT ppx ECF precert pending. * Darleen Singletary, RN - 05/13/2020 9:40 AM EDT Present [...] Chavez PTA - 05/13/2020 9:29 AM EDT [facility] INPATIENT PHYSICAL THERAPY DAILY NOTE [facility] 7K - 7K-19/019-A Time In: 0846 Time Out: 0909 Timed Code Treatment Minutes: 23 Minutes Minutes: 23 Date: 05/13/2020 Patient Name: Jesús Nolan, Gender: female : 1935 (84 y.o.) [...] Function: Lives With: Alone Type of Home: Facility([facility] x6-7 months) ADL Assistance: Needs assistance(recently requiring assist with all at [facility]) Homemaking Assistance: (dependent on staff) Ambulation Assistance: Needs assistance Transfer Assistance: Needs assistance Additional Comments: Pt reports being a long time since she has walked, reports living at [facility] x6-7 months, was starting to work on [...] with functional mobility. Functional Outcome Measures: Completed AM-PAC Inpatient Mobility without Stair Climbing Raw Score : 8 AM-PAC Inpatient without Stair Climbing T-Scale Score : 30.65 ASSESSMENT: Assessment: Patient progressing toward established goals. Activity Tolerance: Patient tolerance of treatment: good. Pt able to get up with less assist this date. Equipment Recommendations:Equipment Needed: No Discharge Recommendations: Subacute/Alf Facility Plan: Times per week: 4-5x O [...] A x 2 for increased functional mobility. halfway goals Time Frame for remote computer terminal operator goals : NA due to short length of stay. Following session, patient left in safe position with all fall risk precautions in place. * Saleem Gomes MD - 05/13/2020 8:25 AM EDT Hospitalist Progress Note Patient: Jesús Nolan Unit/Bed:7K-19/019-A Date of : 1935 Acct: [id number] PCP: Justino F Yazmin, DO Date of Admission: 05/10/2020 Assessment and [...] reviewed in chart review snap shot in [facility] CC: Consult for medical management HPI: Initial admission HPI by product safety consultant physician reviewed as below: 84-year-old female [...] 7:16 AM EDT Hospitalist Progress Note Patient: Jesús Nolan Unit/Bed:7K-19/019-A Date of : 1935 Acct: [id number] PCP: Justino Dhaliwal DO Date of Admission: [...] reviewed in chart review snap shot in [employer] CC: Consult for medical management HPI: Initial admission HPI by product safety consultant physician reviewed as below: 84-year-old female [...] Tinajero, PT - 05/11/2020 2:37 PM EDT [facility] INPATIENT PHYSICAL THERAPY EVALUATION [facility] 7K - 7K-19/019-A Time In: 1325 Time Out: 1354 Timed Code Treatment Minutes: 10 Minutes Minutes: 29 Date: 05/11/2020 Patient Name: Jesús Nolan, Gender: female : 1935 (84 y.o.) Referring Practitioner: Sylvia oMnte CNP Diagnosis: Periprosthetic hip fracture Additional Pertinent [...] History: Lives With: Alone Type of Home: Facility([facility] x6-7 months) ADL Assistance: Needs assistance(recently requiring assist with all at [facility]) Homemaking Assistance: (dependent on staff) Ambulation Assistance: Needs assistance Transfer Assistance: Needs assistance Additional Comments: Pt reports being a long time since she has walked, reports living at [facility] x6-7 months, was starting to work on [...] with functional mobility. Functional Outcome Measures: Completed AM-PAC Inpatient Mobility without Stair Climbing Raw Score : 6 AM-PAC Inpatient without Stair Climbing T-Scale Score : [...] FOLLOW UP: Yes Discharge Recommendations: Discharge Recommendations: Subacute/Alf Facility Patient Education: PT Education: PT Role, [...] A x 2 for increased functional mobility. halfway goals Time Frame for halfway goals : NA due to short length of stay. Following session, patient left in safe position with all fall risk precautions in place. * Marcia Escalera OT - 05/11/2020 10:44 AM EDT [facility] INPATIENT OCCUPATIONAL THERAPY [facility] 7K EVALUATION Time: Time In: 958 Time Out: 5 Timed Code Treatment Minutes: 26 Minutes Minutes: 36 Date: 05/11/2020 Patient Name: Jesús Nolan, Gender: female : 1935 (84 y.o.) Referring Practitioner: GLORIA Buckner CNP Diagnosis: periprosthetic hip fracture Additional Pertinent Hx: [...] History: Lives With: Alone Type of Home: Facility([facility] x6-7 months) ADL Assistance: Needs assistance(recently requiring assist with all at [facility]) Homemaking Assistance: (dependent on staff) Ambulation Assistance: Needs assistance Transfer Assistance: Needs assistance Additional Comments: Pt reports being a long time since she has walked, reports living at [facility] x6-7 months, was starting to work on [...] Balance: Maximum Assistance, X 2. within romario stedy BED MOBILITY: Supine to Sit: Moderate Assistance with cues and inc time TRANSFERS: Sit to Stand: Maximum Assistance, x3, pt unable to clear paddles on romario stedy without 3rd person. from EOB Stand to Sit: Maximum Assistance, X 2. to recliner from Romario chirag FUNCTIONAL MOBILITY: Assistive Device: romario stedy Assist [...] next level of care and return to [facility]. Performance deficits / Impairments: Decreased functional mobility [...] independence and quality of life. Discharge Recommendations: Subacute/Alf Facility, Patient would benefit from continued therapy [...] Pt will demonstrate functional t/fs within ROMARIO STEDY with mod A x2 for inc easewith [...] 8:31 AM EDT Hospitalist Progress Note Patient: Jesús Nolan Unit/Bed:7K-19/019-A Date of : 1935 Acct: [id number] PCP: Justino Dhaliwal DO Date of Admission: [...] reviewed in chart review snap shot in [employer] CC: Consult for medical management HPI: Initial admission HPI by product safety consultant physician reviewed as below: 84-year-old female [...] technology. Final report electronically signed by Dr eBnson dEwards on 05/10/2020 3:30 PM Xr Hip Left [...] meets criteria for discharge , transported to 7K family upstairs waiting * Natali Tobias RN - 05/10/2020 10:43 AM EDT The patient arrived with a care analyst. Patient in a wheelchair. Patient was transferred [...] Martínez DPM - 06/13/2020 10:45 AM EDT [facility] Progress Note and Procedure Note Jesús Nolan AGE: 84 y.o. GENDER: female : 1935 EPISODE DATE: 06/13/2020 Subjective: Chief Complaint Patient presents with Wound Check bilateral heels pain and non healing HISTORY of PRESENT ILLNESS HPI Jesús Nolan is a 84 y.o. female who presents today for wound/ulcer evaluation and treatment History of Wound Context: 2nd visit in treatment cycle Last visit 05-30-2020 DDx: LEft heel decubitus ; unstageable Tx: autolytic transparent dressings Off loading MRR: ID consult ; all [employer] Wound/Ulcer Pain Timing/Severity: constant, mild Quality of [...] HIP performed by Chele Lagos MD at [facility] OR FAMILY HISTORY History reviewed. No pertinent family history. SOCIAL HISTORY Social History Tobacco Use Smoking status: Never Smoker Smokeless tobacco: Never Used Substance Use Topics Alcohol use: No Drug use: No ALLERGIES No Known Allergies MEDICATIONS Current Outpatient Medications on File Prior to Encounter Medication Sig Dispense Refill Nutritional Supplements (BILL) PACK Take 1 each by mouth once [...] Z96.649 Decubitus ulcer of heel, left, unstageable ([facility]) L89.620 REC: excisional debridement / culture [...] cm^2 05/30/20 1318 Wound Assessment Black;Red 05/30/20 131 Drainage Amount None 05/30/20 1318 Odor None [...] (cm^3) 0.99 cm^3 05/30/20 1346 Wound Assessment [place];Slough;Yellow 05/30/20 1346 Drainage Amount Moderate 05/30/20 1346 Drainage Description Serosanguinous 05/30/20 1318 Odor None 05/30/20 1318 Corrine-wound Assessment Clean;Dry;Intact 05/30/20 1318 Non-staged Wound Description Full thickness 05/30/20 1346 [place]%Wound Bed 50 05/30/20 1346 Yellow%Wound Bed 50 [...] by patient or POA. * Mary Newman, ALFA, LD - 06/13/2020 10:45 AM EDT Wound Management Medical Nutrition Therapy Assessment Age- 84 y.o. Sex- female Chief Complaint- Wound Check (bilateral heels) Height- Height: 5' 3 (160 cm) Weight- Weight: 161 lb 8 oz (73.3 kg)([facility] weight) IBW- 115 # %IBW- 141 [...] Needs- BEE- 1162 kcal Total Calorie Needs- 4859-7601 (25-28 kcal/kg) Total Protein Needs- 78-94 (1.5-1.8 [...] QUEtiapine, acetaminophen, ascorbic acid, busPIRone, desoximetasone, enoxaparin, bill, melatonin, pravastatin, therapeutic multivitamin-minerals, and verapamil Multivitamin/mineral Use- yes Lab Results Component Value Date LABALBU 2.9 06/12/2020 LABALBU 4.4 02/19/2012 GLUCOSE 110 06/12/2020 GLUCOSE 100 02/19/2012 LABA1C 5.6 09/07/2017 Other Labs - none noted Dietary Recall Reveals- Pt reports eating good at meals, States she eats too much. Staff from [facility] Pt is on a daily MVI w/minerals and Bill. Pt reports eating protein foods. Medical Nutrition Therapy Discussed- encouraged continued protein intakes to aid healing, continueddaily MVI w/minerals and Bill. Nutrition Therapy Recommendations- 1. Continue to have 3 well balanced meals with a variety of lean meats, fresh fruits, vegetables, whole grains and low fat dairy. 2. Continue daily multivitamin with minerals and Bill to assist with wound healing needs. 3. Include protein foods with meals and snacks to aid healing needs (eggs, fish, chicken, etc.) Follow-up- quarterly Mary Newman RDN, LEIF 06/13/2020 1:21 PM PQRS Measure: #1(Diabetes: Hemoglobin [...] docusate sodium, enoxaparin, ferrous sulfate, furosemide, hydrALAZINE, bill, melatonin, polyethylene glycol, pravastatin, therapeutic multivitamin-minerals, and [...] 2. Continue with daily MVI w/minerals and Bill to aid wound healing needs. 3. Include protein foods with meals and snacks to aid healing needs. 4. Limit sodium to < 2,000 mg per day due to CKD. Follow-up- quarterly Mary Newman RDN, LEIF 09/12/2020 1:39 PM PQRS Measure: #1(Diabetes: Hemoglobin [...] IV (severe) (HCC) Procedures US RENAL COMPLETE Dilan Chew U, DO Reason Comments Fall C/o left hip pain st atus post /fall LOC Laceration posterior head from fall Reason Comments Leg Pain Fall at home prior t o arrival. Left leg and hip pain with shortening. Reason Comments Fatigue Generaliezed weaknes s, pain in joints. 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 Displaced intertrochanteric fracture of left femur, subsequent encounter for closed fracture with routine healing LEFT HIP PERIPROSTHETIC FEMUR FX WITH COMPLETE DISPLACEMENT Procedures MA REMOVAL SUPERFICIAL IMPLANT MA CONV PREV HIP SURG TO TOT HIP ARTHROPLAS HARDWARE REMOVAL LEFT HIP, CONVERSION TO LEFT TOTAL HIP Chele Lagos MD [address] [place] [address] Mikro Odeme | 3pay Reason Comments Wound Check Bilateral heels Reason Comments Wound Check bilateral heels Reason Comments Wound Check bilateral heel/leg w ounds Reason Comments Wound Check left heel Reason Comments Wound Check Left heel Reason Comments Wound Check LEFT HEEL AND DESKTOP ARCHITECT RIOR LOWER LEG INFORMATION SOURCE (unrecogn ized section and content) DATE CREATED AUTHOR [facility]/2020 [facility] DATE CREATED AUTHOR AUTHOR'S ORGANIZ ATION 08/29/2020 [facility] DATE CREATED AUTHOR AUTHOR'S ORGANIZ ATION 04/20/2021 [facility] DATE CREATED AUTHOR AUTHOR'S ORGANIZ ATION 10/15/2021 [facility] DATE CREATED AUTHOR AUTHOR'S ORGANIZ ATION 09/07/2023 [facility] DATE CREATED AUTHOR AUTHOR'S ORGANIZ ATION 09/14/2023 Derrick Steen [facility] DATE CREATED AUTHOR AUTHOR'S ORGANIZ ATION 10/31/2023 [facility] Care Teams (unrecognized sec tion and content) Team Status: Active Member Role Status Dates Brina Cordero MD Primary Care Provider Active Team Status: Active Member Role Status Dates Destiny Irwin MD Emergency Provider Active Brina Cordero MD Primary Care Provider Active Riky Bundy MD Admit Provider, Attending Martín foreman Active Goals (unrecognized section and content) Goals may be documented in a n alternate section Source Comments (unrecognize d section and content) In the event this informatio n is protected by the Federal Confidentiality of Alcohol and Drug Abuse Patient Records regulations: The Federal rules restrict any use of the information to criminally investigate or prosecute any alcohol or drug abuse patient.[facility] the event this information is protected by the Federal Confidentiality of Alcohol and Drug Abuse Patient Records regulations: The Federal rules restrict any use of the information to criminally investigate or prosecute any alcohol or drug abuse patient.[facility] FOR RECORDS PERTAINING TO PATIENTS WHO [...] BE BASED ON THE PRIMARY CLINICAL RECORDS. [facility]. provides no warranty or guarantee of the accuracy or completeness of information in this document."
[2023-11-12 09:34] LABS: Albumin Level 2.9 g/dL (3.4-5.0); Anion Gap 12.9; BUN Creatinine Ratio 15.4; Calcium 8.5 mg/dL (8.5-10.1); Carbon Dioxide 29.4 mmol/L (21.0-32.0); Chloride 104 mmol/L (98-107); Estimated GFR (African America 27 (>=60); Estimated GFR (Non-African Ame 23 (>=60); Glucose 110 mg/dL (74-106); Magnesium 2.2 mg/dL (1.8-2.4); Phosphorus 3.8 mg/dL (2.6-4.7); Potassium 4.3 mmol/L (3.5-5.1); Sodium 142 mmol/L (136-145); Uric Acid 5.9 mg/dL (2.6-6.0)
[2023-11-12 10:23] LABS: Basophils Percent Auto 0.2 % (0.2-2.0); Eosinophils Absolute Auto 0.2 10^3/uL (0.0-0.7); Eosinophils Percent Auto 3.8 % (0.9-7.0); Hemoglobin 10.7 g/dL (12.0-16.0); Immature Granulocytes Abs Auto 0.01 10^3/uL (0.00-0.03); Immature Granulocytes Pct Auto 0.2 % (0.0-0.5); Lymphocytes Absolute Auto 2.1 10^3/uL (1.2-3.8); Lymphocytes Percent Auto 36.9 % (20.5-60.0); Mean Corpuscular HGB Conc 30.6 g/dL (29.9-35.2); Mean Corpuscular Hemoglobin 31.7 pg (26.7-34.0); Mean Corpuscular Volume 103.6 fL (81.0-99.0); Mean Platelet Volume 10.5 fL (9.5-13.5); Monocytes Absolute Auto 0.7 10^3/uL (0.3-0.8); Monocytes Percent Auto 11.7 % (1.7-12.0); Neutrophils Absolute Auto 2.7 10^3/uL (1.4-6.5); Neutrophils Percent Auto 47.2 % (43.0-75.0); Platelet Count 260 10^3/uL (150-450); Red Blood Count 3.38 10^6/uL (4.20-5.40); Red Cell Distribution Width 13.6 % (11.0-15.0); White Blood Count 5.7 10^3/uL (4.0-11.0)
[2023-11-14 14:09] LABS: PTH, Intact 57 pg/mL (15-65)
== END 2023-11-12 02:19 | disposition home or self-care (01) ==
LOC: LAB 02:18
PROVIDERS: PCP Family Medicine
DX: I12.9 Hypertensive chronic kidney disease with stage 1 through stage 4 chronic kidney disease, or unspecified chronic kidney disease (principal); N18.4 Chronic kidney disease, stage 4 (severe); N25.0 Renal osteodystrophy; E87.8 Other disorders of electrolyte and fluid balance, not elsewhere classified; E87.70 Fluid overload, unspecified
CPT/HCPCS: 36415; 80069; 83735; 83970; 84550; 85025

== ENCOUNTER 2024-01-04 16:16 | Outpatient (REF) | payer MEDICARE, MEDICAID, SELFPAY | END 2024-01-04 16:17 | disposition home or self-care (01) | LOC: LAB 16:16 | PROVIDERS: PCP Family Medicine; Visit Provider Family Medicine | DX: R30.0 Dysuria (principal) | CPT/HCPCS: 87086; 87150; 87186 ==

== ENCOUNTER 2024-01-09 14:00 | Outpatient (REF) | payer MEDICARE, MEDICAID, SELFPAY ==
[2024-01-10 10:46] LABS: Bilirubin Urine NEGATIVE (NEGATIVE); Blood Urine NEGATIVE (NEGATIVE); Clarity Urine CLEAR (CLEAR); Color Urine LT. YELLOW (YELLOW); Glucose Urine UA NEGATIVE (NEGATIVE); Ketones Urine NEGATIVE (NEGATIVE); Leukocyte Esterase Urine NEGATIVE (NEGATIVE); Nitrite Urine NEGATIVE (NEGATIVE); Protein Urine NEGATIVE (NEG/TRACE); Specific Gravity Urine 1.015 (1.005-1.025); Urobilinogen Urine 0.2 EU/dL (0.2-1.0)
[2024-01-10 10:52] LABS: Urine Microscopic Indicated NO
[2024-01-10 12:14] LABS: Creatinine Urine Random 59.29 mg/dL (20.00-300.00); Protein Creatinine Ratio Urine 0.43; Total Protein Urine Random 25.2 mg/dL (<=11.9)
== END 2024-01-09 14:01 | disposition home or self-care (01) ==
LOC: LAB 14:00
PROVIDERS: PCP Family Medicine
DX: I12.9 Hypertensive chronic kidney disease with stage 1 through stage 4 chronic kidney disease, or unspecified chronic kidney disease (principal); N18.4 Chronic kidney disease, stage 4 (severe); N25.0 Renal osteodystrophy; E87.8 Other disorders of electrolyte and fluid balance, not elsewhere classified; E87.70 Fluid overload, unspecified
CPT/HCPCS: 81003; 82570; 84156

== ENCOUNTER 2024-01-10 04:30 | Outpatient (OUT) | payer MEDICARE, MEDICAID, SELFPAY ==
--- OUTSIDE RECORDS SUMMARY | 2024-01-10 04:45 | XMS_ITS | CCD ---
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 Name Role Phone Justino Dhaliwal Primary Care Provider [phone] CHELE LAGOS Admitting Unavailable CHELE LAGOS Attending Unavailable YAZMIN, JUSTINO Boone Primary Care Unavailable PENNY DOWNEY Consulting Unavailable CONSTANTIN ESCOBEDO Consulting Unavailable Justino Dhaliwal Primary Care Provider [phone] Carlos Carlin Admitting Unavailable Carlos Carlin Attending Unavailable YAZMIN, JUSTINO HUNG Primary Care Unavailab le YAZMIN, JUSTINO HUNG Consulting Unavailab le Yazmin DO, Justino Boone Primary Care Provider [phone] DAVID, DR ALAN Grayson Attending Unavailable HERNANDEZ, [...] Cordero Unavailable MD Destiny Irwin Emergency Provider [phone] MD Brina Cordero Primary Care Provider [phone] MD Riky Bundy Admit Provider MD Riky Bundy Attending Provider Brina Cordero Primary Care Unavailable Riky Bundy Admitting Unavailab Kishan Downs Attending Unavailable Justino Martinez Consulting Unavailable Unavailable Primary Care Provider UnavailHarsh Ireland Attending Unavailable Harsh CLAYTON Attending Unavailable Harsh CLAYTON Referring Unavailable Justino Martinez Attending Unavailable Justino Martinez Referring Unavailable Brina Cordero MD Primary Care Provider KODY LOREDO Attending Unavailable BRINA CORDERO Referring Unavailable KODY LOREDO Attending Unavailable BRINA CORDERO Primary Care Unavailable BRINA CORDERO Primary Care Unavailable BRINA CORDERO Primary Care Unavailable GARLAND, RICCO Attending Unavailable BRINA CORDERO Primary Care Unavailable MARK CESAR Attending Unavailable GARLAND, RICCO Referring Unavailable BRINA CORDERO E Primary Care Unavailable GARLAND, RICCO Referring Unavailable BRINA CORDERO Primary Care Unavailable GARLAND, RICCO Referring Unavailable GARLAND, RICCO Attending Unavailable GARLAND, RICCO Referring Unavailable BRINA CORDERO Primary Care Unavailable STEFANIE OCAMPO Referring Unavailable BRINA CORDERO Primary Care Unavailable GARLAND, RICCO Attending Unavailable GARLAND, RICCO Admitting Unavailable BRINA CORDERO E Primary Care Unavailable BRINA CORDERO Primary Care Unavailable Allergies Allergy Classification Reported Allergen(s) Allergy Type Date of Onset Reaction(s) Facility (1 source) No Known Medication Allergies; Translations: [No Known Medication Allergies] Propensity to adverse reactions to drug (disorder) [facility] Repository Medications Current Medications Medication Drug Class(es) Dates Sig (Normalized) Sig (Original) acetaminophen 325 mg / HYDROcodone bitartrate 10 mg oral tablet (20 sources) Opioid Agonist Start: 10-15-2023 HYDROcodone-Acetam inophen 10-325 MG 1 tablet six times per day Orally prn for 30 days Sep, Active Start: 08-31-2023 take 1 tablet by hailey th every six hours Hydrocodone-Acetaminophen (Harrison) 10-325 mg Tablet Active 1 TAB PO [...] oral tablet (1 source) Vitamin C Start: 023 take 1 tablet by mouth at dinner Vitamins A,C,F-Giho-Aztwpk (Preservision Areds) 2,148 mcg-113 mg-45 mg-17.4mg Tablet [...] ARE DS 2 - as directed Orally 319-36-36-1MG Active calcitriol 0.62099 mg oral capsule (20 sources) Vitamin D3 Analog Start: 023 take 0.25 ug by mouth once daily Calcitriol Active 0.25 MCG PO Daily August 31, 2023 12:00am take 1 capsule by [facility] three times weekly Calcitriol 0.25 MCG 1 capsule Orally Thr ee times a Week Active take 1 capsule by [facility] three times weekly Calcitriol 0.25 MCG 1 capsule Orally Thr ee times a Week Active Comment on above: Take 0.25 mcg by [facility]. ciprofloxacin 250 mg oral tablet (8 sources) [...] 2023 12:00am take 1 tablet by hailey every eight hours hydrALAZINE HCl 25 MG [...] PO Daily August 31, 2023 12:00am Start: 12-05-2023 take 1 mg by mouth t hree [...] (3 sources) Serotonin-3 Receptor Antagonist Start: 05-10-20 20 4 mg, Intravenous, EVERY 6 HOURS PRN, [...] IVPB extended infusion (mini-bag) polyethylene glycol 3350 25088 mg powder for oral solution (20 sources) [...] Class(es) Dates Sig (Normalized) Sig (Original) acetaminophen 500 mg oral tablet (20 sources) Start: 10-20-2023 take 2 tablets by mouth every six hours as needed acetaminophen (TYLENOL EXTRA STRENGTH) 500 mg tablet Take 2 tablets by mouth every 6 hours as needed for pain. 0 10/20/2023 Active Start: 08-31-2023 take 650 mg by mouth [...] 650 mg take 1 capsule by mo uth every six hours Acetaminophen 500 MG 1 capsule as needed Orally every 6 hrs 650 MG Active take 2 tablets by mo uth every six hours as needed for pain acetaminophen (TYLENOL) 325 MG tablet Take 650 mg by mouth every 6 hours as needed for Pain 0 Active Comment on above: Take 2 tablets by mo uth every 6 hours as needed for pain. ampicillin-sulbactam (UNASYN) 1.5 g IVPB minibag (1 source) Start: 04-02-2020 End: 04-02-2020 ampicillin-sulbactam (UNASYN) 1.5 g IVPB minibag ascorbic acid [...] First dose on Wed05/10/20 at 2100 calcium acetate 667 mg oral tablet (20 sources) Start: 08-02-2023 calcium acetat e (CALPHRON) 667 mg tablet calcium chloride 0.0014 meq/ml / potassium chloride [...] 0500 diclofenac sodium 0.01 mg/mg topical gel (13 sources) Nonsteroidal Anti-inflammatory Drug Start: 09-04-2023 diclofenac (VOLTA FROY) 1 % topical gel Voltaren 1 % as directed Externally Active Voltaren 1 % as directed Externally Active estradiol 0.1 mg/ml vaginal cream (8 sources) Estrogen Start: 09-07-2023 estradiol (EST RACE) [...] day Active HIGH POTENCY MULTIVITAMIN 400 mcg (8 sources) Start: 08-19-2023 HIGH POTENCY MULTIVITAMIN 400 [...] 5 days. lactulose 667 mg/ml oral solution (14 sources) Osmotic Laxative Start: 09-04-2023 lactulose 10 [...] 04-03-2020 0.9 % sodium chloride infusi on tamsulosin hydrochloride 0.4 mg oral capsule (4 sources) alpha-Adrenergic Ellie Start: 10-20-2023 tamsulosin (FLOMAX) 0.4 mg Take 1 capsule by mouth once daily. 30 minutes after the same meal each day. 30 capsule 0 10/20/2023 Active Comment on above: Take 1 capsule by [facility] once daily. 30 minutes after the same meal each day. traMADol hydrochloride 50 mg oral tablet (1 [...] Onset: 3 Chronic Calculus of urinary tract (20 sources) Staghorn calculus; Translations: [Calculus of kidney] Onset: 3 08-31-2023 Episodic Chronic kidney disease (20 sources) Chronic kidney disease stage 4; Translations: [Chronic kidney disease, stage 4 (severe)] Onset: 1 Chronic Chronic ulcer of skin (20 sources) Pressure ulcer of heel; Translations: [Pressure ulcer stage 3] Onset: 0 06-13-2020 Chronic Deficiency and other anemia (20 sources) Anemia of chronic disease; Translations: [Anemia in other chronic diseases classified elsewhere] Onset: 3 09-23-2023 Chronic Deficiency and other anemia (3 sources) Anemia in other chronic diseases classified elsewhere; Translations: [Anemia of chronic disease] Onset: 3 Chronic Delirium, dementia, and amnestic and other cognitive disorders (3 sources) Dementia; Translations: [Unspecified dementia without behavioral disturbance] Onset: 3 09-01-2023 Chronic Essential hypertension (12 sources) Hypertensive disorder; Translations: [Essential (primary) hypertension] Onset: 3 09-01-2023 Chronic Fracture of neck of femur (hip) (1 source) Closed intertrochanteric fracture; Translations: [Closed displaced intertrochanteric fracture of left femur, initial encounter ([facility])] Episodic Osteoarthritis (9 sources) Arthritis; Translations: [Unspecified osteoarthritis, unspecified site] [...] calculous obstruction; Translations: [Hydronephrosis] 09-08-2023 Episodic Other diseases of kidney and ureters (1 source) Hydronephrosis; Translations: [Unspecified hydronephrosis] 12-07-2023 Episodic Other diseases of kidney and ureters (1 source) Unspecified hydronephrosis; Translations: [Hydronephrosis, unspecified hydronephrosis type] Onset: 4 Episodic Other ear and sense organ disorders (3 sources) Hearing loss; Translations: [Unspecified hearing loss, unspecified ear] Chronic Other ear and sense organ disorders (1 source) Impacted cerumen, bilateral Episodic Other gastrointestinal disorders (18 sources) Slow transit constipation; Translations: [Slow transit constipation] Episodic Other nervous system disorders (6 sources) Metabolic encephalopathy; Translations: [Metabolic encephalopathy] 09-01-2023 Chronic Other nervous system disorders (3 sources) Metabolic encephalopathy; Translations: [Metabolic encephalopathy] Onset: 3 08-31-2023 Chronic Other non-traumatic joint disorders (1 source) Pain of left hip joint; Translations: [Pain of left hip joint] Other screening for suspected conditions (not mental disorders or infectious disease) (1 source) Patient encounter status; Translations: [Encounter for screening for other disorder] 12-06-2023 Episodic Residual codes; unclassified (2 sources) Hallucinations, unspecified; Translations: [Hallucinations] Onset: 3 08-31-2023 Episodic Residual codes; unclassified (1 source) Disorientation, unspecified; Translations: [Disorientation, unspecified] Onset: 3 Episodic Residual codes; unclassified (6 sources) Delirium; Translations: [Disorientation, unspecified] Onset: 4 10-21-2023 Episodic Retinal detachments; defects; vascular occlusion; and [...] Other Problems Problem Classification Problem Date Documented Da te Episodic/Chronic Fluid and electrolyte disorders (20 sources) Hypokalemia; Translations: [Hypokalemia] Onset: 04-02-2020 04-02-2020 Episodic Genitourinary symptoms and ill-defined conditions (20 sources) Urinary tract obstruction; Translations: [Obstructive and reflux uropathy, unspecified] Onset: 09-07-2023 09-07-2023 Episodic Malaise and fatigue (20 sources) Asthenia; Translations: [Malaise] Onset: 04-02-2020 04-02-2020 Episodic Other fractures (20 sources) Periprosthetic fracture; Translations: [Periprosthetic fracture around other internal prosthetic joint, initial encounter] Onset: 05-10-2020 05-10-2020 Episodic Other gastrointestinal disorders (9 sources) Constipation; Translations: [Constipation, unspecified] Onset: 09-07-2023 09-01-2023 Episodic Other gastrointestinal disorders (3 sources) Constipation, unspecified; Translations: [Constipation, unspecified] Onset: 09-01-2023 08-31-2023 Episodic Residual codes; unclassified (7 sources) Hallucinations; Translations: [Hallucinations, unspecified] Onset: 09-01-2023 08-31-2023 Episodic Residual codes; unclassified (8 sources) History of operative procedure on hip; Translations: [Other specified postprocedural states] Onset: 09-07-2023 09-07-2023 Episodic Residual codes; unclassified (1 source) Other specified postprocedural states; Translations: [Status post hip surgery] Onset: 09-07-2023 Episodic Skin and subcutaneous tissue infections (2 sources) Cellulitis of right upper limb; Translations: [Cellulitis of right upper limb] Onset: 04-02-2020 04-03-2020 Episodic Results Test Name Value Interpretation Reference Range Facility [facility] 01-04-2024 CNPN Telephone (UROLMN) JESÚS NOLAN ([id number]) 1935 F Date Time Provider Department 01/04/24 MARK CESAR During your visit today, we recorded the following information about you: Khushboo Davila 01/04/2024 10:24 AM Signed Mailed pt CT orders so they can have done locally when they get apt they will call to schedule VV with Mark Cesar Allergies As of Date: 01/04/2024 (No Known Allergies) Date Reviewed: 12/06/2023 Reviewed by: Kya Rodriguez OCCA - Fully Assessed Prescriptions as of 01/04/2024 - acetaminophen (TYLENOL EXTRA STRENGTH) 500 mg tablet Take 2 tablets by mouth every 6 hours as needed for pain. - tamsulosin (FLOMAX) 0.4 mg Take 1 capsule by mouth once daily. 30 minutes after the same meal each day. - VITAMIN C 500 mg tablet [...] a week. Problem List As Of Date 01/04/2024 Noted Resolved Abnormal urinalysis [R82.90] 09/07/2023 History of recurrent UTIs [Z87.440] 09/07/2023 Staghorn calculus [N20.0] 09/07/2023 Essential hypertension [I10] 09/07/2023 Constipation [K59.00] 09/07/2023 Arthritis [M19.90] 09/07/2023 Status post hip surgery [Z98.890] 09/07/2023 Stage 4 chronic kidney disease (HCC) [N18.4] 04/12/2021 Generalized anxiety disorder [F41.1] 09/23/2023 Hallucinations [R44.3] 09/01/2023 Hypokalemia [E87.6] 09/23/2023 Anemia of chronic disease [D63.8] 09/23/2023 Pre-op evaluation [Z01.818] 09/23/2023 Calculus, kidney [N20.0] 10/19/2023 Delirium [R41.0] 10/21/2023 Encounter Status:Closed by KHUSHBOO [facility] JES[facility]S [facility] ([id number]) 1935 F Date Time Provider Department 12/08/23 MARK CESAR During your visit today, we recorded the following information about you: Mark Cesar PA-C 12/08/2023 3:23 PM Signed Left VM following our post-op visit. In reviewing with Dr. Garland, we feel a CT scan to assess post-op mild/moderate hydronephrosis is warranted to rule out stone fragments vs stricture formation. Order is in place. Instructed to call at earliest convenience to set up. Can review alongside [facility] in a few weeks. Mark Cesar PA-C December 07, 2023 12 PM Mark Cesar PA-C 12/08/2023 3:25 PM Signed Addended by: MARK CESAR on: 12/08/2023 03:25 PM Modules accepted: Orders Allergies As of Date: 12/08/2023 (No Known Allergies) Date Reviewed: 12/06/2023 Reviewed by: Kya Rodriguez OCCA - Fully Assessed Reason for Visit: Results [95] Primary Visit Diagnosis:Nephrolithia sis [N20.0] Order(s):CT FLANK WO IVCON [[id number]] Order #: [id number] FUTURE Prescriptions as of 12/08/2023 - acetaminophen (TYLENOL EXTRA STRENGTH) 500 mg tablet Take 2 tablets by mouth every 6 hours as needed for pain. - tamsulosin (FLOMAX) 0.4 mg Take 1 capsule by mouth once daily. 30 minutes after the same meal each day. - VITAMIN C 500 mg tablet [...] a week. 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] 09/07/2023 Essential hypertension [I10] 09/07/2023 Constipation [K59.00] 09/07/2023 Arthritis [M19.90] 09/07/2023 Status post hip surgery [Z98.890] 09/07/2023 Stage 4 chronic kidney disease (HCC) [N18.4] 04/12/2021 Generalized anxiety disorder [F41.1] 09/23/2023 Hallucinations [R44.3] 09/01/2023 Hypokalemia [E87.6] 09/23/2023 Anemia of chronic disease [D63.8] 09/23/2023 Pre-op evaluation [Z01.818] 09/23/2023 Calculus, kidney [N20.0] 10/19/2023 Delirium [R41.0] 10/21/2023 Encounter Status:Closed by MARK CESAR on 12/08/23 [facility] 12-06-2023 [facility] Office Visit (UROLMN ) JESÚS NOLAN ([id number]) 1935 F Date Time Provider Department 12/06/23 2:30 PM MARK CESAR During your visit today, we recorded the following information about you: Pulse Blood pressure 60/minute 155/88 Mark Cesar PA-C 12/07/2023 2:24 PM Signed UROLOGY NOTE Chief complaint: kidney stone follow up Jesús Nolan is a 88 year old female who presents today for kidney stone management and prevention counseling. s/p L miniPCNL w/ Dr. Garland on 10/18/23. CaP, struvite. Pt currently: no fever, no chills, no nausea, no vomiting, no dysuria, no gross hematuria, no renal colic She completed US and KUB today, the former showing mild/moderate left hydro despite no apparent stone (staghorn stone no longer visualized). She denies any pain on that side. [facility] 24-hour urine collection was sent off three days ago, so results not yet available. There is no height or weight on file to calculate BMI. PAST MEDICAL HISTORY Diagnosis Date Stage 4 chronic kidney disease (HCC) 04/12/2021 Stage 4 chronic kidney disease (HCC) 04/12/2021 No past surgical history on file. No family history on file. Social History Tobacco Use Smoking status: Never Smokeless tobacco: Never Substance Use Topics Alcohol use: Never Drug use: Never Current Outpatient Medications on File Prior to Visit Medication Sig acetaminophen (TYLENOL EXTRA STRENGTH) 500 mg tablet Take 2 tablets by mouth every 6 hours as needed for pain. VITAMIN C 500 mg tablet busPIRone (BUSPAR) 10 mg tablet calcitriol (ROCALTROL) 0.25 mcg capsule Take 0.25 mcg by mouth. calcium acetate (CALPHRON) 667 mg tablet docusate sodium (COLACE) 100 mg capsule Take 100 mg by mouth. ferrous sulfate 325 mg (65 mg iron) tablet furosemide (LASIX) 20 mg tablet Take 20 mg by mouth. hydrALAZINE (APRESOLINE) 25 mg tablet Take 25 mg by mouth. LORazepam (ATIVAN) 0.5 mg Take 0.5 mg by mouth every 6 hours as needed. melatonin 10 mg ODT polyethylene glycol 3350 17 gram packet Take 17 g by mouth. pravastatin (PRAVACHOL) 10 mg tablet Take 10 mg by mouth. verapamil SR (CALAN SR) 180 mg CR tablet Take 180 mg by mouth. diclofenac (VOLTAREN) 1 % topical gel HYDROcodone-Acetaminop hen (NORCO) 10-325 mg per tablet HIGH POTENCY MULTIVITAMIN 400 mcg estradiol (ESTRACE) 0.01 % (0.1 mg/gram) vaginal cream Use 1 g vaginally one time a week. tamsulosin (FLOMAX) 0.4 mg Take 1 capsule by mouth once daily. 30 minutes after the same meal each day. lactulose 10 gram/15 mL solution (Patient not taking: Reported on 09/23/2023) No current facility-administered medications on file prior to visit. ALLERGIES No Known Allergies Admission on 10/17/2023, Discharged on 10/21/2023 Component Date Value Ref Range Status WBC 10/17/2023 7.18 3.70 - 11.00 k/uL Final RBC 10/17/2023 4.11 3.90 - 5.20 m/uL Final Hemoglobin 10/17/2023 13.1 11.5 - 15.5 g/dL Final Hematocrit 10/17/2023 40.4 36.0 - 46.0 % Final MCV 10/17/2023 98.3 80.0 - 100.0 fL Final MCH 10/17/2023 31.9 26.0 - 34.0 pg Final MCHC 10/17/2023 32.4 30.5 - 36.0 g/dL Final RDW-CV 10/17/2023 13.2 11.5 - 15.0 % Final Platelet Count 10/17/2023 194 150 - 400 k/uL Final MPV 10/17/2023 10.4 9.0 - 12.7 fL Final Neutrophils % 10/17/2023 58.3 % Final Abs Neut 10/17/2023 4.19 1.45 - 7.50 k/uL Final Lymphocytes % 10/17/2023 30.8 % Final Abs Lymph 10/17/2023 2.21 1.00 - 4.00 k/uL Final Monocytes % 10/17/2023 9.5 % Final Abs Menard 10/17/2023 0.68 <0.87 k/uL Final Eosinophils % 10/17/2023 1.0 % Final Abs Eosin 10/17/2023 0.07 <0.46 k/uL Final Basophils % 10/17/2023 0.1 % Final Abs Baso 10/17/2023 <0.03 <0.11 k/uL Final Immature Granulocytes % 10/17/2023 0.3 % Final Abs Immature Gran 10/17/2023 <0.03 <0.10 k/uL Final NRBC 10/17/2023 0.0 /100 WBC Final Absolute nRBC 10/17/2023 <0.01 <0.01 k/uL Final Diff Type 10/17/2023 Auto Final Glucose 10/17/2023 129 (H) 74 - 99 mg/dL Final The [place] Diabetes Association (ADA) provides guidance for cutoff [...] Standards of Medical Care in Diabetes 2016, [place] [employer] Association. Diabetes Care. 2016.39(Suppl 1). BUN 10/17/2023 30 (H) 7 - 21 mg/dL Final Creatinine 10/17/2023 2.11 (H) 0.58 - 0.96 mg/dL Final Sodium 10/17/2023 143 (more content not included)... Normal [facility] US KIDNEY/BLADDERon 12-06-19 24 US KIDNEY/BLADDER * * *Final Report* * * DATE OF EXAM: Dec 06 2023 1:07PM ERNESTO 1055 - US KIDNEY/BLADDER / PROCEDURE REASON: Nephrolithiasis * * * * Physician Interpretation * * * * EXAMINATION: RENAL ULTRASOUND CLINICAL HISTORY: Left-sided nephrolithiasis with nephrolithotripsy and removal of 2 cm stone 10/18/2023 TECHNIQUE: Sonography of the kidneys and urinary bladder was performed. Images were obtained and stored in a permanent archive. MQ: UR_1 COMPARISON: CT 08/31/2023 RESULT: Right Kidney: -Renal length: 8.5 cm -Parenchyma: Parenchyma echogenicity is increased. Diffuse parenchymal thinning present. Diffuse -Collecting system: No hydronephrosis. -Calculus: No echogenic, shadowing calculus. -Lesion: 1.3 cm lower pole cyst with no solid internal component. Left Kidney: Technically challenging evaluation with portions of the upper and lower pole obscured -Renal length: Approximately7.2 cm -Parenchyma: Normal parenchymal echogenicity. Diffuse parenchymal thinning present. -Collecting system: Mild to moderate hydronephrosis, new. -Calculus: No echogenic, shadowing calculus. -Lesion: None. Bladder: Normal sonographic appearance. IMPRESSION: New, mild to moderate left-sided hydronephrosis. The previously shown left staghorn type calculus is no longer present. Consider CT for further characterization. Results discussed with Dr. Garland at 1:55pm on 12/06/23 Farm Management Teacher: [facility] Transcribe Date/Time: Dec 06 2023 1:44P Dictated by : ERICA OSBORN MD This examination was interpreted and the report reviewed and electronically signed by: ERICA OSBORN MD on Dec 06 2023 1:58PM EST [id number] Normal [facility] US Kidney - bilateral and Ur inary bladderon 12-06-2023 [facility] XR ABDOMEN 3V KUB W/OBLIQUES on 12-06-2023 XR ABDOMEN 3V KUB W/OBLIQUES * * *Final Report* * * DATE OF EXAM: Dec 06 2023 1:48PM AOX 5358 - XR ABDOMEN 3V KUB W/OBLIQUES / PROCEDURE REASON: Nephrolithiasis * * * * Physician Interpretation * * * * ABDOMEN PLAIN FILM 1 VIEW/S CLINICAL INFORMATION: Nephrolithiasis TECHNIQUE: Supine views of the abdomen were obtained. Number of images: 2 COMPARISON: CT 08/31/2023 RESULT: See impression IMPRESSION: Evaluation of the renal shadows, expected course of the ureters and urinary bladder obscured by overlying colonic stool. No radiopaque density identified overlying the renal shadows, expected course of the ureters or urinary bladder. Bowel:No dilated bowel loops. Moderate colonic stool present throughout the colon to the level of the cecum. Other: Vascular atherosclerotic calcifications. Right upper quadrant cholecystectomy clips. Bones: Left hip prosthesis. Degenerative changes. Farm Management Teacher: [facility] Transcribe Date/Time: Dec 06 2023 2:00P Dictated by : ERICA OSBORN MD This examination was interpreted and the report reviewed and electronically signed by: ERICA OSBORN MD on Dec 06 2023 2:02PM EST [id number] Normal [facility] XR Abdomen GE 3 Views AP and Oblique and [place] 12-06-2023 [facility] CNOVon 10-27-2023 CNOV Office Visit (UROSMN ) OVIDIOJESÚS ([id number]) 1935 F Date Time Provider Department 10/27/23 [...] Visit completed when applicable. MARYJANE Soni Dannetta M RN 10/27/2023 12:17 PM Addendum Actual procedure/procedure scheduled: Yes Performing provider/scheduled provider: Yes Patient was roomed in: Q9- 06 Dynamics Ax Developer offered:Patient accepts, visit chaperoned by daughter Patient [...] Instruction Provided To: Patient and family member Diet Assistant Present: not applicable Discipline: Nursing Learning Topic: SURVIVAL SKILLS: Symptom Management Patient Evaluation: Verbalizes understanding: Yes Supplemental Material Given: Written Material Instructed By Christa Flanagan RN In Department Urology . One suture removed by from left side of back with suture removal kit. Dry bandaid applied to site. Ricco Garland MD 10/27/2023 1:12 PM Signed CYSTOSCOPY PROCEDURE [facility] NOTE Pertinent History and Physical Exam [...] Operative Finding (more content not included)... Normal [facility] Basic metabolic 2000 panelon 10-21-2023 Anion gap [Moles/Vol] 10 mmol/L Normal 9-18 [facility] Comment on above: Order Comment: Speci men Type: BLOOD SPECIMENOrdering Facility: [facility] Address: [address] [place] [address] Performed By: #### 2 4321-2 ####[facility] LABCLIA [id number] [place] [address] [place] Calcium [Mass/Vol] 8.7 mg/dL Normal 8.5-10.2 [facility] Comment on above: Order Comment: Speci men Type: BLOOD SPECIMENOrdering Facility: [facility] Address: [address] [place] [address] Performed By: #### 2 4321-2 ####[facility]CLIA [id number] [place] [address] [place] Chloride [Moles/Vol] 105 mmol/L Normal 97-105 [facility] Comment on above: Order Comment: Speci men Type: BLOOD SPECIMENOrdering Facility: [facility] Address: [address] [place] [address] Performed By: #### 2 4321-2 ####[facility]CLIA [id number] [place] [address] [place] CO2 [Moles/Vol] 27 mmol/L Normal 22-30 [facility] Comment on above: Order Comment: Speci men Type: BLOOD SPECIMENOrdering Facility: [facility] Address: [address] [place] [address] Performed By: #### 2 4321-2 ####[facility] LABCLIA [id number] [place] [address] [place] Creatinine [Mass/Vol] 2.04 mg/dL High 0.58-0.96 [facility] Comment on above: Order Comment: Lalo mclaughlin Type: BLOOD SPECIMENOrdering Facility: [facility] Address: [address] [place] [address] Performed By: #### 2 4321-2 ####[facility] LABIA [id number] [address] OF [facility] Creatinine and Glomerular filtration rate.predicted panel (S/P/Bld) 23 mL/min/1.73m??? Low >=60 [facility] Comment on above: Order Comment: Lalo mclaughlin Type: BLOOD SPECIMENOrdering Facility: [facility] Address: [address] [place] [address] Result Comment: Melissa mated Glomerular Filtration Rate [...] actual GFR. Performed By: #### 2 4321-2 ####[facility] LABCLIA [id number] [place] [address] [place] Glucose [Mass/Vol] 180 mg/dL High 74-99 [facility] Comment on above: Order Comment: Lalo mclaughlin Type: BLOOD SPECIMENOrdering Facility: [facility] Address: [address] [place] [address] Result Comment: The [place] Diabetes Association (ADA) provides guidance for cutoff [...] Standards of Medical Care in Diabetes 2016, [place] Diabetes [employer]. Diabetes Care. 2016.39(Suppl 1). Performed By: #### 2 4321-2 ####[facility] LABCLIA [id number] [place] [address] [place] Potassium [Moles/Vol] 3.5 mmol/L Low 3.7-5.1 [facility] Comment on above: Order Comment: Speci men Type: BLOOD SPECIMENOrdering Facility: [facility] Address: [address] [place] [address] Performed By: #### 2 4321-2 ####[facility] LABCLIA [id number] [place] [address] [place] Sodium [Moles/Vol] 142 mmol/L Normal 136-144 [facility] Comment on above: Order Comment: Speci men Type: BLOOD SPECIMENOrdering Facility: [facility] Address: [address] [place] [address] Performed By: #### 2 4321-2 ####[facility] LABIA [id number] [place] [address] [place] Urea nitrogen [Mass/Vol] 26 mg/dL High 7-21 [facility] Comment on above: Order Comment: Speci men Type: BLOOD SPECIMENOrdering Facility: [facility] Address: [address] [place] [address] Performed By: #### 2 4321-2 ####[facility] LABIA [id number] [place] [address] [place] CBC panel Auto (Bld)on 10-21 Erythrocyte distribution width (RBC) [Ratio] 13.1 % Normal 11.5-15.0 [facility] Comment on above: Order Comment: Speci men Type: BLOOD SPECIMENOrdering Facility: [facility] Address: [address] [place] [address] Performed By: #### 5 8410-2 ####[facility] LABCLIA [id number] [place] [address] [place] Hematocrit (Bld) [Volume fraction] 35.1 % Low 36.0-46.0 [facility] Comment on above: Order Comment: Speci men Type: BLOOD SPECIMENOrdering Facility: [facility] Address: [address] [place] [address] Performed By: #### 5 8410-2 ####[facility] LABIA [id number] [place] [address] [place] Hemoglobin (Bld) [Mass/Vol] 11.5 g/dL Normal 11.5-15.5 [facility] Comment on above: Order Comment: Speci men Type: BLOOD SPECIMENOrdering Facility: [facility] Address: [address] [place] [address] Performed By: #### 5 8410-2 ####[facility] LABIA [id number] [place] [address] [place] MCH (RBC) [Entitic mass] 31.6 pg Normal 26.0-34.0 [facility] Comment on above: Order Comment: Speci men Type: BLOOD SPECIMENOrdering Facility: [facility] Address: [address] [place] [address] Performed By: #### 5 8410-2 ####[facility] LABIA [id number] [place] [address] [place] MCHC (RBC) [Mass/Vol] 32.8 g/dL Normal 30.5-36.0 [facility] Comment on above: Order Comment: Speci men Type: BLOOD SPECIMENOrdering Facility: [facility] Address: [address] [place] [address] Performed By: #### 5 8410-2 ####[facility] LABCLIA [id number] [place] [address] [place] MCV (RBC) [Entitic vol] 96.4 fL Normal 80.0-100.0 [facility] Comment on above: Order Comment: Speci men Type: BLOOD SPECIMENOrdering Facility: [facility] Address: [address] [place] [address] Performed By: #### 5 8410-2 ####[facility] LABIA [id number] [place] [address] [place] Nucleated RBC (Bld) [#/Vol] 10*3/uL Normal <0.01 [facility] Comment on above: Order Comment: Speci men Type: BLOOD SPECIMENOrdering Facility: [facility] Address: [address] [place] [address] Performed By: #### 5 8410-2 ####[facility] LABIA [id number] [place] [address] [place] Platelet mean volume (Bld) [Entitic vol] 10.7 fL Normal 9.0-12.7 [facility] Comment on above: Order Comment: Speci men Type: BLOOD SPECIMENOrdering Facility: [facility] Address: [address] [place] [address] Performed By: #### 5 8410-2 ####[facility] LABIA [id number] [place] [address] [place] Platelets (Bld) [#/Vol] 158 10*3/uL Normal 150-400 [facility] Comment on above: Order Comment: Speci men Type: BLOOD SPECIMENOrdering Facility: [facility] Address: [address] [place] [address] Performed By: #### 5 8410-2 ####[facility] LABCLIA [id number] [place] [address] [place] RBC (Bld) [#/Vol] 3.64 10*6/uL Low 3.90-5.20 [facility] Comment on above: Order Comment: Speci men Type: BLOOD SPECIMENOrdering Facility: [facility] Address: [address] [place] [address] Performed By: #### 5 8410-2 ####[facility] LABCLIA [id number] [place] [address] [place] WBC (Bld) [#/Vol] 8.61 10*3/uL Normal 3.70-11.00 [facility] Comment on above: Order Comment: Speci men Type: BLOOD SPECIMENOrdering Facility: [facility] Address: [address] [place] [address] Performed By: #### 5 8410-2 ####[facility] LABCLIA [id number] [address] [place] THERAPY NTon 10-21-2023 THERAPY NT HNO ID: [id number] Author: MERY KAUR OT/L Service: Occupational Therapy Author Type: Occupational Therapist Type: Therapy (PT/OT/Speech/Resp) Filed: 10/21/2023 10:57 Note Text: Occupational Therapy Evaluation Summary SERVICE DATE: 10/21/2023 SERVICE TIME: 0935 to 1003 ROOM: [address] 6 Clicks Score: 18 DISCHARGE RECOMMENDATIONS Subacute/SNF Recommended Discharge Disposition Comments: Return to [facility] Anticipated Discharge Needs: Physical Assist at Home [...] EOB > chair with min A and FRAMING INSPECTOR this date. Pt completed grooming tasks seated [...] > w/c with assist, (-) driving, from [facility] and was participating in therapy SPECIAL EDUCATION ADMINISTRATOR. Baseline Cognition: Oriented to self, Oriented to [...] symptoms and signs-other TREATMENT INTERVENTIONS Evaluation, Self Jail Management ([address]) Timed Code Treatment (minutes): 13 Skilled Treatment Time (minutes): 28 TRAINING AND EDUCATION PROVIDED Activity Adaptation/Molecular Biology Scientist y Strategies, Altering Thinking Patterns, Adaptive Equipment/DME, [...] Therapy, Sensory Integration, Sitting Balance to Improve [place] with ADLs/Self-Care, Standing Balance to Improve [place] with ADLs/Self-Care, Transfer - Sit to Stand, [...] Type: Stepping Bed To Chair Transfer Equipment: (FRAMING INSPECTOR) Toilet/Commode Shower Functional Mobility GOALS Patient will demonstrate understanding (more content not included)... Normal [facility] Basic metabolic 2000 panelon 10-20-2023 Anion gap [Moles/Vol] 14 mmol/L Normal 9-18 [facility] Comment on above: Order Comment: Speci men Type: BLOOD SPECIMENOrdering Facility: [facility] Address: [address] [place] [address] Performed By: #### 2 4321-2 ####[facility] LABCLIA [id number] [place] [address] [place] Calcium [Mass/Vol] 9.2 mg/dL Normal 8.5-10.2 [facility] Comment on above: Order Comment: Speci men Type: BLOOD SPECIMENOrdering Facility: [facility] Address: [address] [place] [address] Performed By: #### 2 4321-2 ####[facility] LABCLIA [id number] [place] [address] [place] Chloride [Moles/Vol] 103 mmol/L Normal 97-105 [facility] Comment on above: Order Comment: Speci men Type: BLOOD SPECIMENOrdering Facility: [facility] Address: [address] [place] [address] Performed By: #### 2 4321-2 ####[facility] LABCLIA [id number] [place] [address] [place] CO2 [Moles/Vol] 25 mmol/L Normal 22-30 [facility] Comment on above: Order Comment: Speci men Type: BLOOD SPECIMENOrdering Facility: [facility] Address: [address] [place] [address] Performed By: #### 2 4321-2 ####[facility] LABCLIA [id number] [place] [address] [place] Creatinine [Mass/Vol] 1.90 mg/dL High 0.58-0.96 [facility] Comment on above: Order Comment: Speci men Type: BLOOD SPECIMENOrdering Facility: [facility] Address: [address] [place] [address] Performed By: #### 2 4321-2 ####[facility] LABIA [id number] [place] [address] [place] Creatinine and Glomerular filtration rate.predicted panel (S/P/Bld) 25 mL/min/1.73m??? Low >=60 [facility] Comment on above: Order Comment: Speci men Type: BLOOD SPECIMENOrdering Facility: [facility] Address: [address] [place] [address] Result Comment: Melissa mated Glomerular Filtration Rate [...] actual GFR. Performed By: #### 2 4321-2 ####[facility] LABCLIA [id number] [place] [address] [place] Glucose [Mass/Vol] 92 mg/dL Normal 74-99 [facility] Comment on above: Order Comment: Speci men Type: BLOOD SPECIMENOrdering Facility: [facility] Address: [address] [place], [place] [address] Result Comment: The [place] Diabetes Association (ADA) provides guidance for cutoff [...] Standards of Medical Care in Diabetes 2016, [place] [employer] Association. Diabetes Care. 2016.39(Suppl 1). Performed By: #### 2 4321-2 ####[facility] LABCLIA [id number] [place] [address] [place] Potassium [Moles/Vol] Normal [facility] Comment on above: Order Comment: Speci men Type: BLOOD SPECIMENOrdering Facility: [facility] Address: [address] [place] [address] Result Comment: Unab le to assay due to interference from hemolysis. Suggest reorder as clinically indicated. Performed By: #### 2 4321-2 ####[facility] LABCLIA [id number] [place] [address] [place] Sodium [Moles/Vol] 142 mmol/L Normal 136-144 [facility] Comment on above: Order Comment: Speci men Type: BLOOD SPECIMENOrdering Facility: [facility] Address: [address] [place], [place] [address] Performed By: #### 2 4321-2 ####[facility] LABCLIA [id number] [place] [address] [place] Urea nitrogen [Mass/Vol] 21 mg/dL Normal 7-21 [facility] Comment on above: Order Comment: Speci men Type: BLOOD SPECIMENOrdering Facility: [facility] Address: [address] [place] [address] Performed By: #### 2 4321-2 ####[facility] LABCLIA [id number] [address] OF [facility] CNDSon 10-20-2023 CNDS HNO ID: [id number] Author: RICCO GARLAND MD Service: Urology Author Type: Physician Type: Discharge Summary Filed: 10/24/2023 20:32 Note Text: [place] [address] or (126) [facility] C O N F I D E N T I A L I N F O R M A T I O N STANDARD [facility] DOCUMENT DISCHARGE SUMMARY Patient Name: Jesús Nolan [...] UP TO 2cm (Left) on 10/18. Subsequently MEDICAL MASSAGE THERAPIST is required. Please contact your database security administrator to configure this SmartLink. was transferred to a regular nursing unit. Pain was initially controlled with intravenous/oral analgesia, Diet was slowly advanced as tolerated , Activity level was gradually increased, On post-operative day 2 she was afebrile for approximately 24 hours, ambulating without difficulty, tolerating diet, and pain was adequately controlled with oral medication. The patient was discharged to her jail with instructions to return for follow up [...] Your Medications [id number] [place] [address] [address] [facility] - [phone] [place] [address] [address] [facility] [address] amoxicillin 250 mg capsule tamsulosin 0.4 mg You can get these medications from any pharmacy You don't need a prescription for these medications acetaminophen 500 mg tablet Future Appointments: No future appointments. Electronically SIGNED by Licensed Independent Practitioner: MD Ricco Wilcox MD, FACS Director, Surgical Stone Disease, [facility] correctional therapy director, [facility] Pager [phone] 10/20/2023 Note: Due to patient confusion/combativenes s, we may need to hold discharge and revise this summary. Ricco Garland MD, FACS Director, Surgical Stone Disease, [facility] correctional therapy director, [facility] Pager [phone] 10/20/2023 Normal [facility] CONSULTon 10-20-2023 CONSULT HNO ID: [id number] Author: FANTA MEDELLIN MD Service: Psychiatry Author Type: Physician Type: Consults Filed: 10/21/2023 18:06 Note Text: PSYCHIATRY CONSULT SERVICE MEDICAL STUDENT INITIAL CONSULT NOTE DAY TIME COVERAGE: Between 8AM to 5PM, page [phone] NIGHT AND WEEKEND COVERAGE: After hours (5PM to 8AM) and weekends, page [phone] SERVICE DATE: October 20, 2023 SERVICE TIME: [...] medically managed RECOMMENDATIONS: -Delirium protocol - 1:1 lean specialist for safety - Use Haloperidol 2 mg PO or IM q 6 hours, PRN for severe agitation if behavioral interventions fail - Continue 9 mg Melatonin at bedtime for sleep - Continue home psychiatric medications- Buspar 10 mg daily for anxiety. - Please AVOID opioids, benzodiazepines, or anticholinergic medications. - Psych to follow up while inpatient Jose KUMAR [phone] ____ This note was generated by a [...] is a 88 year old female from [place], [place]. History of Present Illness: She is [...] daughter and son in law in the [facility] area. She was well-groomed and dressed in [...] SYMPTOMS: Depressio (more content not included)... Normal [facility] NURSING PROGon 10-20-2023 NURSING PROG HNO ID: [id number] Author: MIRIAN WALSH, RN Service: Nursing Author Type: Registered Nurse [...] the left thigh. Mirian WHITESIDEN RN Normal [facility] THERAPY NTon 10-20-2023 THERAPY NT HNO ID: [id number] Author: OH GATICA, PT Service: Physical Therapy Author Type: Physical Therapist Type: Therapy (PT/OT/Speech/Resp) Filed: 10/20/2023 12:00 Note Text: PHYSICAL THERAPY MISSED VISIT SERVICE DATE: 10/20/2023 SERVICE TIME: 0943 ROOM: [place] [address] Patient not seen due to: Spoke with CM who stated the patient is being discharged. SIGNATURE: Oh Gatica PT PATIENT NAME: Jesús Nolan DATE: October 20, 2023 TIME: 11:59 AM Normal [facility] THERAPY NT HNO ID: [id number] Author: MERY KAUR OT/L Service: Occupational Therapy Author Type: Occupational Therapist Type: Therapy (PT/OT/Speech/Resp) Filed: 10/20/2023 09:49 Note Text: OCCUPATIONAL THERAPY MISSED VISIT SERVICE DATE: 10/20/2023 SERVICE TIME: 0815 ROOM: [place] [address] Patient not seen due to Clinical Appropriateness. OT attempted eval this AM- pt combative, aggressive, and verbally abusive towards therapist. Pt now with active discharge order for this AM. OT will reattempt if necessary. SIGNATURE: Mery Kaur OT/L PATIENT NAME: Jesús Nolan DATE: October 20, 2023 TIME: 9:47 AM Normal [facility] Basic metabolic 2000 panelon 10-19-2023 Anion gap [Moles/Vol] 11 mmol/L Normal 9-18 [facility] Comment on above: Order Comment: Speci men Type: BLOOD SPECIMENOrdering Facility: [facility] Address: [address] [place] [address] Performed By: #### 2 4321-2 ####[facility] LABCLIA [id number] [place] [address] [place] Calcium [Mass/Vol] 8.6 mg/dL Normal 8.5-10.2 [facility] Comment on above: Order Comment: Speci men Type: BLOOD SPECIMENOrdering Facility: [facility] Address: [address] [place] [address] Performed By: #### 2 4321-2 ####[facility] LABCLIA [id number] [place] [address] [place] Chloride [Moles/Vol] 105 mmol/L Normal 97-105 [facility] Comment on above: Order Comment: Speci men Type: BLOOD SPECIMENOrdering Facility: [facility] Address: [address] [place] [address] Performed By: #### 2 4321-2 ####[facility] LABCLIA [id number] [place] [address] [place] CO2 [Moles/Vol] 26 mmol/L Normal 22-30 [facility] Comment on above: Order Comment: Speci men Type: BLOOD SPECIMENOrdering Facility: [facility] Address: [address] [place] [address] Performed By: #### 2 4321-2 ####[facility] LABCLIA [id number] [place] [address] [place] Creatinine [Mass/Vol] 2.02 mg/dL High 0.58-0.96 [facility] Comment on above: Order Comment: Speci men Type: BLOOD SPECIMENOrdering Facility: [facility] Address: [address] [place] [address] Performed By: #### 2 4321-2 ####[facility] LABCLIA [id number] [place] [address] [place] Creatinine and Glomerular filtration rate.predicted panel (S/P/Bld) 24 mL/min/1.73m??? Low >=60 [facility] Comment on above: Order Comment: Speci men Type: BLOOD SPECIMENOrdering Facility: [facility] Address: [address] [place] [address] Result Comment: Melissa mated Glomerular Filtration Rate [...] actual GFR. Performed By: #### 2 4321-2 ####[facility] LABCLIA [id number] [place] [address] [place] Glucose [Mass/Vol] 131 mg/dL High 74-99 [facility] Comment on above: Order Comment: Lalo mclaughlin Type: BLOOD SPECIMENOrdering Facility: [facility] Address: [address] [place] [address] Result Comment: The [place] Diabetes Association (ADA) provides guidance for cutoff [...] Standards of Medical Care in Diabetes 2016, [place] Diabetes Association. Diabetes Care. 2016.39(Suppl 1). Performed By: #### 2 4321-2 ####[facility] LABCLIA [id number] [place] [address] [place] Potassium [Moles/Vol] 3.9 mmol/L Normal 3.7-5.1 [facility] Comment on above: Order Comment: Lalo mclaughlin Type: BLOOD SPECIMENOrdering Facility: [facility] Address: [address] [place] [id number] Performed By: #### 2 4321-2 ####[facility] LABIA [id number] [place] [address] [place] Sodium [Moles/Vol] 142 mmol/L Normal 136-144 [facility] Comment on above: Order Comment: Lalo mclaughlin Type: BLOOD SPECIMENOrdering Facility: [facility] Address: [address] [place] [address] Performed By: #### 2 4321-2 ####[facility] LABCLIA [id number] [place] [address] [place] Urea nitrogen [Mass/Vol] 25 mg/dL High 7-21 [facility] Comment on above: Order Comment: Speci men Type: BLOOD SPECIMENOrdering Facility: [facility] Address: [address] [place] [address] Performed By: #### 2 4321-2 ####[facility] LABCLIA [id number] [place] [address] [place] CBC W Auto Differential pane l (Bld)on 10-19-2023 Basophils (Bld) [#/Vol] 10*3/uL Normal <0.11 [facility] Comment on above: Order Comment: Speci men Type: BLOOD SPECIMENOrdering Facility: [facility] Address: [address] [place] [address] Performed By: #### 5 7021-8 ####[facility] LABCLIA [id number] [place] [address] [place] Basophils/100 WBC (Bld) 0.2 % Normal [facility] Comment on above: Order Comment: Speci men Type: BLOOD SPECIMENOrdering Facility: [facility] Address: [address] [place] [address] Performed By: #### 5 7021-8 ####[facility] LABCLIA [id number] [place] [address] [place] Differential cell count method Nom (Bld) Auto Normal [facility] Comment on above: Order Comment: Speci men Type: BLOOD SPECIMENOrdering Facility: [facility] Address: [address] [place] [address] Performed By: #### 5 7021-8 ####[facility] LABCLIA [id number] [place] [address] [place] Eosinophils (Bld) [#/Vol] 0.03 10*3/uL Normal <0.46 [facility] Comment on above: Order Comment: Speci men Type: BLOOD SPECIMENOrdering Facility: [facility] Address: [address] [place] [address] Performed By: #### 5 7021-8 ####[facility] LABCLIA [id number] [place] [address] [place] Eosinophils/100 WBC (Bld) 0.2 % Normal [facility] Comment on above: Order Comment: Speci men Type: BLOOD SPECIMENOrdering Facility: [facility] Address: [address] [place] [address] Performed By: #### 5 7021-8 ####[facility] LABCLIA [id number] [place] [address] [place] Erythrocyte distribution width (RBC) [Ratio] 13.3 % Normal 11.5-15.0 [facility] Comment on above: Order Comment: Speci men Type: BLOOD SPECIMENOrdering Facility: [facility] Address: [address] [place] [address] Performed By: #### 5 7021-8 ####[facility] LABCLIA [id number] [place] [address] [place] Hematocrit (Bld) [Volume fraction] 36.8 % Normal 36.0-46.0 [facility] Comment on above: Order Comment: Speci men Type: BLOOD SPECIMENOrdering Facility: [facility] Address: [address] [place] [address] Performed By: #### 5 7021-8 ####[facility] LABCLIA [id number] [place] [address] [place] Hemoglobin (Bld) [Mass/Vol] 11.8 g/dL Normal 11.5-15.5 [facility] Comment on above: Order Comment: Speci men Type: BLOOD SPECIMENOrdering Facility: [facility] Address: [address] [place] [address] Performed By: #### 5 7021-8 ####[facility] LABCLIA [id number] [place] [address] [place] Immature granulocytes (Bld) [#/Vol] 0.05 10*3/uL Normal <0.10 [facility] Comment on above: Order Comment: Speci men Type: BLOOD SPECIMENOrdering Facility: [facility] Address: [address] [place] [address] Performed By: #### 5 7021-8 ####[facility] LABCLIA [id number] [place] [address] [place] Immature granulocytes/100 WBC (Bld) 0.4 % Normal [facility] Comment on above: Order Comment: Speci men Type: BLOOD SPECIMENOrdering Facility: [facility] Address: [address] [place] [address] Performed By: #### 5 7021-8 ####[facility] LABCLIA [id number] [place] [address] [place] Lymphocytes (Bld) [#/Vol] 1.26 10*3/uL Normal 1.00-4.00 [facility] Comment on above: Order Comment: Speci men Type: BLOOD SPECIMENOrdering Facility: [facility] Address: [address] [place] [address] Performed By: #### 5 7021-8 ####[facility] LABCLIA [id number] [place] [address] [place] Lymphocytes/100 WBC (Bld) 10.1 % Normal [facility] [facility] Comment on above: Order Comment: Speci men Type: BLOOD SPECIMENOrdering Facility: [facility] Address: [address] [place] [address] Performed By: #### 5 7021-8 ####[facility] LABCLIA [id number] [id number], [place] [address] [place] MCH (RBC) [Entitic mass] 32.6 pg Normal 26.0-34.0 [facility] Comment on above: Order Comment: Speci men Type: BLOOD SPECIMENOrdering Facility: [facility] Address: [address] [place] [address] Performed By: #### 5 7021-8 ####[facility] LABCLIA [id number] [place] [address] [place] MCHC (RBC) [Mass/Vol] 32.1 g/dL Normal 30.5-36.0 [facility] Comment on above: Order Comment: Speci men Type: BLOOD SPECIMENOrdering Facility: [facility] Address: [address] [place] [address] Performed By: #### 5 7021-8 ####[facility] LABCLIA [id number] [place] [address] [place] MCV (RBC) [Entitic vol] 101.7 fL High 80.0-100.0 [facility] Comment on above: Order Comment: Speci men Type: BLOOD SPECIMENOrdering Facility: [facility] Address: [address] [place] [address] Performed By: #### 5 7021-8 ####[facility] LABCLIA [id number] [place] [address] [place] Monocytes (Bld) [#/Vol] 1.09 10*3/uL High <0.87 [facility] Comment on above: Order Comment: Speci men Type: BLOOD SPECIMENOrdering Facility: [facility] Address: [address] [place] [address] Performed By: #### 5 7021-8 ####[facility] LABCLIA [id number] [place] [address] [place] Monocytes/100 WBC (Bld) 8.7 % Normal [facility] Comment on above: Order Comment: Speci men Type: BLOOD SPECIMENOrdering Facility: [facility] Address: [address] [place] [address] Performed By: #### 5 7021-8 ####[facility] LABCLIA [id number] [place] [address] [place] Neutrophils (Bld) [#/Vol] 10.04 10*3/uL High 1.45-7.50 [facility] Comment on above: Order Comment: Speci men Type: BLOOD SPECIMENOrdering Facility: [facility] Address: [address] [place] [address] Performed By: #### 5 7021-8 ####[facility] LABCLIA [id number] [place] [address] [place] Neutrophils/100 WBC (Bld) 80.4 % Normal [facility] Comment on above: Order Comment: Speci men Type: BLOOD SPECIMENOrdering Facility: [facility] Address: [address] [place] [address] Performed By: #### 5 7021-8 ####[facility] LABCLIA [id number] [place] [address] [place] Nucleated RBC (Bld) [#/Vol] 10*3/uL Normal <0.01 [facility] Comment on above: Order Comment: Speci men Type: BLOOD SPECIMENOrdering Facility: [facility] Address: [address] [place] [address] Performed By: #### 5 7021-8 ####[facility] LABCLIA [id number] [place] [address] [place] Nucleated RBC/100 WBC (Bld) [Ratio] 0.0 /100 WBC Normal [facility] Comment on above: Order Comment: Speci men Type: BLOOD SPECIMENOrdering Facility: [facility] Address: [address] [place] [address] Performed By: #### 5 7021-8 ####[facility] LABCLIA [id number] [place] [address] [place] Platelet mean volume (Bld) [Entitic vol] 10.6 fL Normal 9.0-12.7 [facility] Comment on above: Order Comment: Speci men Type: BLOOD SPECIMENOrdering Facility: [facility] Address: [address] [place] [address] Performed By: #### 5 7021-8 ####[facility] LABCLIA [id number] [place] [address] [place] Platelets (Bld) [#/Vol] 168 10*3/uL Normal 150-400 [facility] Comment on above: Order Comment: Speci men Type: BLOOD SPECIMENOrdering Facility: [facility] Address: [address] [place] [address] Performed By: #### 5 7021-8 ####[facility] LABCLIA [id number] [place] [address] [place] RBC (Bld) [#/Vol] 3.62 10*6/uL Low 3.90-5.20 [facility] Comment on above: Order Comment: Speci men Type: BLOOD SPECIMENOrdering Facility: [facility] Address: [address] [place] [address] Performed By: #### 5 7021-8 ####[facility] LABIA [id number] [place] [address] [place] WBC (Bld) [#/Vol] 12.49 10*3/uL High 3.70-11.00 [facility] Comment on above: Order Comment: Speci men Type: BLOOD SPECIMENOrdering Facility: [facility] Address: [address] [place] [address] Performed By: #### 5 7021-8 ####[facility] LABCLIA [id number] [place] [address] [place] ANES POSTPROC EVALon 10-18-2 024 ANES POSTPROC EVAL HNO ID: [id number] Author: ESVIN ALLEN MD Service: ? Author Type: Anesthesiologist Type: Anesthesia Postprocedure Evaluation Filed: 10/18/2023 12:06 Note Text: POST ANESTHESIA EVALUATION NOTE : 1935 Procedure Summary Date: 10/18/23 Room / Location: [address] Anesthesia Start: 07 Anesthesia Stop: 1058 Procedure: PERC NEPHROLITHOTOMY LITHOTRIPSY,STONE EXTRACTION,ANTEGRADE URETEROSCOPY,STENT PLACEMENT WHEN PERFORMED INCD IMAGING UP TO 2cm (Left: Kidney) Diagnosis: Nephrolithiasis (Nephrolithiasis [N20.0]) Surgeons: Ricco Garland MD Responsible Provider: Esvin Allen MD Anesthesia Type: general ASA Status: [...] October 18, 2023 TIME: 12:06 PM CSN: [id number] Normal [facility] ANES PRE-OPon 10-18-2023 ANES PRE-OP HNO ID: [id number] Author: ESVIN ALLEN MD Service: ? Author Type: Anesthesiologist Type: Anesthesia Preprocedure Evaluation Filed: 10/18/2023 07:50 Note Text: ANESTHESIOLOGY DAY OF SURGERY NOTE : 1935 Procedure Information Anesthesia Start Date/Time: 10/18/2333 Procedure: PERC NEPHROLITHOTOMY LITHOTRIPSY,STONE EXTRACTION,ANTEGRADE URETEROSCOPY,STENT PLACEMENT WHEN PERFORMED INCD IMAGING UP TO 2cm (Left: Kidney) Location: [facility] Surgeons: Ricco Garland MD [...] October 18, 2023 TIME: 7:49 AM CSN: [id number] Normal [facility] Bacteria Ur Culton Bacteria identified Cx Nom (U) CULTURE, URINE: No growth (<1,000 CFU/ml) Normal [facility] Comment on above: Performed By: #### 6 30-4 ####[facility] LABCLIA [id number] [place] [address] [place] Basic metabolic 2000 panelon 10-18-2023 Anion gap [Moles/Vol] 14 mmol/L Normal 9-18 [facility] Comment on above: Order Comment: Speci men Type: BLOOD SPECIMENOrdering Facility: [facility] Address: [address] [place] [address] Performed By: #### 2 4321-2 ####[facility] LABCLIA [id number] [place] [address] [place] Calcium [Mass/Vol] 8.0 mg/dL Low 8.5-10.2 [facility] Comment on above: Order Comment: Speci men Type: BLOOD SPECIMENOrdering Facility: [facility] Address: [address] [place] [address] Performed By: #### 2 4321-2 ####[facility] LABCLIA [id number] [place] [address] [place] Chloride [Moles/Vol] 106 mmol/L High 97-105 [facility] Comment on above: Order Comment: Speci men Type: BLOOD SPECIMENOrdering Facility: [facility] Address: [address] [place] [address] Performed By: #### 2 4321-2 ####[facility] LABCLIA [id number] [place] [address] [place] CO2 [Moles/Vol] 24 mmol/L Normal 22-30 [facility] Comment on above: Order Comment: Speci men Type: BLOOD SPECIMENOrdering Facility: [facility] Address: [address] [place] [address] Performed By: #### 2 4321-2 ####[facility] LABCLIA [id number] [address] STATES OF [facility] Creatinine [Mass/Vol] 1.91 mg/dL High 0.58-0.96 [facility] Comment on above: Order Comment: Speci men Type: BLOOD SPECIMENOrdering Facility: [facility] Address: [address] [place] [address] Performed By: #### 2 4321-2 ####[facility] LABIA [id number] [address] Creatinine and Glomerular filtration rate.predicted panel (S/P/Bld) 25 mL/min/1.73m??? Low >=60 [facility] Comment on above: Order Comment: Speci men Type: BLOOD SPECIMENOrdering Facility: [facility] Address: [address] [place] [address] Result Comment: Melissa mated Glomerular Filtration Rate [...] actual GFR. Performed By: #### 2 4321-2 ####[facility] LABCLIA [id number] [place] [address] [place] Glucose [Mass/Vol] 197 mg/dL High 74-99 [facility] Comment on above: Order Comment: Speci men Type: BLOOD SPECIMENOrdering Facility: [facility] Address: [address] [place] [address] Result Comment: The [place] Diabetes Association (ADA) provides guidance for cutoff [...] Standards of Medical Care in Diabetes 2016, [place] [employer]. Diabetes Care. 2016.39(Suppl 1). Performed By: #### 2 4321-2 ####[facility] LABCLIA [id number] [place] [address] [place] Potassium [Moles/Vol] 4.0 mmol/L Normal 3.7-5.1 [facility] Comment on above: Order Comment: Speci men Type: BLOOD SPECIMENOrdering Facility: [facility] Address: [address] [place] [address] Performed By: #### 2 4321-2 ####[facility] LABCLIA [id number] [place] [address] [place] Sodium [Moles/Vol] 144 mmol/L Normal 136-144 [facility] Comment on above: Order Comment: Speci men Type: BLOOD SPECIMENOrdering Facility: [facility] Address: [address] [place] [address] Performed By: #### 2 4321-2 ####[facility] LABCLIA [id number] [place] [address] [place] Urea nitrogen [Mass/Vol] 25 mg/dL High 7-21 [facility] Comment on above: Order Comment: Speci men Type: BLOOD SPECIMENOrdering Facility: [facility] Address: [address] [place] [address] Performed By: #### 2 4321-2 ####[facility] LABCLIA [id number] [place] [address] [place] CALCULI ANALYSISon 4 Calculus analysis [Interp] Normal [facility] Comment on above: Order Comment: Speci men Type: CALCULUS SPECIMENOrdering Facility: [facility] Address: [address] [place] [address] Result Comment: This test was developed and its performance characteristics determined by [facility] Pathology [facility] Laboratory Medicine [place] ([facility]). It has not been cleared or approved by the FDA. [facility] is regulated under CLIA as qualified to perform high-complexity testing. This test is used for clinical purposes. It should not be regarded as investigational or for research. Performed By: #### C SA ####[facility] LABCLIA [id number] [place] [address] [place] CALCULUS COLOR MEDINA Normal [facility] Comment on above: Order Comment: Speci men Type: CALCULUS SPECIMENOrdering Facility: [facility] Address: [address] [place] [address] Performed By: #### C SA ####[facility] LABCLIA [id number] [place] [address] [place] CALCULUS COMPOSITION 1 60% Calcium Phosphate Normal [facility] Comment on above: Order Comment: Speci men Type: CALCULUS SPECIMENOrdering Facility: [facility] Address: [address] [place] [address] Performed By: #### C SA ####[facility] LABCLIA [id number] [address] [place] CALCULUS COMPOSITION 2 40% Magnesium Amm onium Phosphate Normal [facility] Comment on above: Order Comment: Speci men Type: CALCULUS SPECIMENOrdering Facility: [facility] Address: [address] [place] [address] Performed By: #### C SA ####[facility] LABCLIA [id number] [place] [address] [place] CALCULUS SIZE AND WT Multiple pieces. 12.1620 GRAMS Normal [facility] Comment on above: Order Comment: Speci men Type: CALCULUS SPECIMENOrdering Facility: [facility] Address: [address] [place] [address] Performed By: #### C SA ####[facility] LABCLIA [id number] [place] [address] [place] CALCULUS TYPE CALCULI/CALCULUS Normal [facility] Comment on above: Order Comment: Speci men Type: CALCULUS SPECIMENOrdering Facility: [facility] Address: [address] [place] [address] Performed By: #### C SA ####[facility] LABCLIA [id number] [place] [address] [place] CBC panel Auto (Bld)on 10-18 Erythrocyte distribution width (RBC) [Ratio] 13.2 % Normal 11.5-15.0 [facility] Comment on above: Order Comment: Speci men Type: BLOOD SPECIMENOrdering Facility: [facility] Address: [address] [place] [address] Performed By: #### 5 8410-2 ####[facility] LABCLIA [id number] [place] [address] [place] Hematocrit (Bld) [Volume fraction] 37.0 % Normal 36.0-46.0 [facility] Comment on above: Order Comment: Speci men Type: BLOOD SPECIMENOrdering Facility: [facility] Address: [address] [place] [address] Performed By: #### 5 8410-2 ####[facility] LABCLIA [id number] [place] [address] [place] Hemoglobin (Bld) [Mass/Vol] 11.8 g/dL Normal 11.5-15.5 [facility] Comment on above: Order Comment: Speci men Type: BLOOD SPECIMENOrdering Facility: [facility] Address: [address] [place] [address] Performed By: #### 5 8410-2 ####[facility] LABIA [id number] [place] [address] [place] MCH (RBC) [Entitic mass] 31.7 pg Normal 26.0-34.0 [facility] Comment on above: Order Comment: Speci men Type: BLOOD SPECIMENOrdering Facility: [facility] Address: [address] [place] [address] Performed By: #### 5 8410-2 ####[facility] LABIA [id number] [place] [address] [place] MCHC (RBC) [Mass/Vol] 31.9 g/dL Normal 30.5-36.0 [facility] Comment on above: Order Comment: Speci men Type: BLOOD SPECIMENOrdering Facility: [facility] Address: [address] [place] [address] Performed By: #### 5 8410-2 ####[facility] LABIA [id number] [place] [address] [place] MCV (RBC) [Entitic vol] 99.5 fL Normal 80.0-100.0 [facility] Comment on above: Order Comment: Speci men Type: BLOOD SPECIMENOrdering Facility: [facility] Address: [address] [place] [address] Performed By: #### 5 8410-2 ####[facility] LABCLIA [id number] [place] [address] [place] Nucleated RBC (Bld) [#/Vol] 10*3/uL Normal <0.01 [facility] Comment on above: Order Comment: Speci men Type: BLOOD SPECIMENOrdering Facility: [facility] Address: [address] [place] [address] Performed By: #### 5 8410-2 ####[facility] LABIA [id number] [place] [address] [place] Platelet mean volume (Bld) [Entitic vol] 10.4 fL Normal 9.0-12.7 [facility] Comment on above: Order Comment: Speci men Type: BLOOD SPECIMENOrdering Facility: [facility] Address: [address] [place] [address] Performed By: #### 5 8410-2 ####[facility] LABIA [id number] [place] [address] [place] Platelets (Bld) [#/Vol] 165 10*3/uL Normal 150-400 [facility] Comment on above: Order Comment: Speci men Type: BLOOD SPECIMENOrdering Facility: [facility] Address: [address] [place] [address] Performed By: #### 5 8410-2 ####[facility] LABIA [id number] [place] [address] [place] RBC (Bld) [#/Vol] 3.72 10*6/uL Low 3.90-5.20 [facility] Comment on above: Order Comment: Speci men Type: BLOOD SPECIMENOrdering Facility: [facility] Address: [address] [place] [address] Performed By: #### 5 8410-2 ####[facility] LABIA [id number] [place] [address] [place] WBC (Bld) [#/Vol] 18.32 10*3/uL High 3.70-11.00 [facility] Comment on above: Order Comment: Speci men Type: BLOOD SPECIMENOrdering Facility: [facility] Address: [address] [place] [address] Performed By: #### 5 8410-2 ####[facility] LABPHIL [id number] ASH[place]I RODRIGUES [id number] [id number] [place] OPERATIVE NOon 10-18-2023 OPERATIVE NO HNO ID: [id number] Author: RICCO GARLAND MD Service: Urology Author Type: Physician Type: Operative Report Filed: 10/18/2023 11:07 Note Text: OPERATIVE/PROCEDURE REPORT LOG ID: [id number] Surgery/Procedure Date: 10/18/2023 Incision/Procedure Start Time: 8:31 AM Incision Close/Procedure End Time: 10:20 AM Surgeon(s)/Procedurali st(s) and Environmental Program Manager(s): Surgeon(s) and Role: * Ricco Garland MD [...] < 1 hr Anesthesia: General Findings: Stone [place]: 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 Flexible nephroscopy was then performed [...] 20 Johan (more content not included)... Normal [facility] XR CHEST 1V FRONTAL PORTon 0 10-18-2023 [...] normal limits. IMPRESSION: No acute cardiopulmonary process. Farm Management Teacher: ELISABET Transcribe Date/Time: Oct 18 2023 11:35A Dictated by : CHARLIE JOHNSON MD This examination was interpreted and the report reviewed and electronically signed by: CHARLIE JOHNSON MD on Oct 18 2023 11:35AM EST [id number] Normal [facility] Bacteria Ur Culton Bacteria identified Cx Nom (U) CULTURE, URINE: No growth (<1,000 CFU/ml) Normal [facility] Comment on above: Performed By: #### 6 30-4 ####[facility] LABCLIA [id number] [place] [address] [place] Basic metabolic 2000 panelon 10-17-2023 Anion gap [Moles/Vol] 17 mmol/L Normal 9-18 [facility] Comment on above: Order Comment: Speci men Type: BLOOD SPECIMENOrdering Facility: [facility] Address: [address] [place] [address] Performed By: #### 2 4321-2 ####[facility] LABCLIA [id number] [place] [address] [place] Calcium [Mass/Vol] 9.7 mg/dL Normal 8.5-10.2 [facility] Comment on above: Order Comment: Speci men Type: BLOOD SPECIMENOrdering Facility: [facility] Address: [address] [place] [address] Performed By: #### 2 4321-2 ####[facility] LABCLIA [id number] [place] [address] [place] Chloride [Moles/Vol] 103 mmol/L Normal 97-105 [facility] Comment on above: Order Comment: Speci men Type: BLOOD SPECIMENOrdering Facility: [facility] Address: [address] [place] [address] Performed By: #### 2 4321-2 ####[facility] LABCLIA [id number] [place] [address] [place] CO2 [Moles/Vol] 23 mmol/L Normal 22-30 [facility] Comment on above: Order Comment: Speci men Type: BLOOD SPECIMENOrdering Facility: [facility] Address: [address] [place] [address] Performed By: #### 2 4321-2 ####[facility] LABCLIA [id number] [facility] [place] [id number] [place] Creatinine [Mass/Vol] 2.11 mg/dL High 0.58-0.96 [facility] Comment on above: Order Comment: Speci men Type: BLOOD SPECIMENOrdering Facility: [facility] Address: [address] [place] [address] Performed By: #### 2 4321-2 ####[facility] LABCLIA [id number] [place] [address] [place] Creatinine and Glomerular filtration rate.predicted panel (S/P/Bld) 22 mL/min/1.73m??? Low >=60 [facility] Comment on above: Order Comment: Lalo mclaughlin Type: BLOOD SPECIMENOrdering Facility: [facility] Address: [address] [place] [address] Result Comment: Melissa mated Glomerular Filtration Rate [...] actual GFR. Performed By: #### 2 4321-2 ####[facility] LABCLIA [id number] [place] [address] [place] Glucose [Mass/Vol] 129 mg/dL High 74-99 [facility] Comment on above: Order Comment: Lalo mclaughlin Type: BLOOD SPECIMENOrdering Facility: [facility] Address: [address] [place] [address] Result Comment: The [place] Diabetes Association (ADA) provides guidance for cutoff [...] Standards of Medical Care in Diabetes 2016, [place] [employer]. Diabetes Care. 2016.39(Suppl 1). Performed By: #### 2 4321-2 ####[facility] LABCLIA [id number] [place] [address] [place] Potassium [Moles/Vol] 4.3 mmol/L Normal 3.7-5.1 [facility] Comment on above: Order Comment: Speci men Type: BLOOD SPECIMENOrdering Facility: [facility] Address: [address] [place] [address] Performed By: #### 2 4321-2 ####[facility] LABCLIA [id number] [place] [address] [place] Sodium [Moles/Vol] 143 mmol/L Normal 136-144 [facility] Comment on above: Order Comment: Speci men Type: BLOOD SPECIMENOrdering Facility: [facility] Address: [address] [place] [address] Performed By: #### 2 4321-2 ####[facility] LABIA [id number] [place] [address] [place] Urea nitrogen [Mass/Vol] 30 mg/dL High - [facility] Comment on above: Order Comment: Speci men Type: BLOOD SPECIMENOrdering Facility: [facility] Address: [address] [place] [address] Performed By: #### 2 4321-2 ####[facility] LABIA [id number] [place] [address] [place] CBC W Auto Differential pane l (Bld)on 10-17-2023 Basophils (Bld) [#/Vol] 10*3/uL Normal <0.11 [facility] Comment on above: Order Comment: Speci men Type: BLOOD SPECIMENOrdering Facility: [facility] Address: [address] [place] [address] Performed By: #### 5 7021-8 ####[facility] LABIA [id number] [place] [address] [place] Basophils/100 WBC (Bld) 0.1 % Normal [facility] Comment on above: Order Comment: Speci men Type: BLOOD SPECIMENOrdering Facility: [facility] Address: [address] [place] [address] Performed By: #### 5 7021-8 ####[facility] LABCLIA [id number] [place] [address] [place] Differential cell count method Nom (Bld) Auto Normal [facility] Comment on above: Order Comment: Speci men Type: BLOOD SPECIMENOrdering Facility: [facility] Address: [address] [place] [address] Performed By: #### 5 7021-8 ####[facility] LABCLIA [id number] [place] [address] [place] Eosinophils (Bld) [#/Vol] 0.07 10*3/uL Normal <0.46 [facility] Comment on above: Order Comment: Speci men Type: BLOOD SPECIMENOrdering Facility: [facility] Address: [address] [place] [address] Performed By: #### 5 7021-8 ####[facility] LABCLIA [id number] [place] [address] [place] Eosinophils/100 WBC (Bld) 1.0 % Normal [facility] Comment on above: Order Comment: Speci men Type: BLOOD SPECIMENOrdering Facility: [facility] Address: [address] [place] [address] Performed By: #### 5 7021-8 ####[facility] LABCLIA [id number] [place] [address] [place] Erythrocyte distribution width (RBC) [Ratio] 13.2 % Normal 11.5-15.0 [facility] Comment on above: Order Comment: Speci men Type: BLOOD SPECIMENOrdering Facility: [facility] Address: [address] [place] [address] Performed By: #### 5 7021-8 ####[facility] LABCLIA [id number] [place] [address] [place] [place] Hematocrit (Bld) [Volume fraction] 40.4 % Normal 36.0-46.0 [facility] Comment on above: Order Comment: Speci men Type: BLOOD SPECIMENOrdering Facility: [facility] Address: [address] [place] [address] Performed By: #### 5 7021-8 ####[facility] LABIA [id number] [place] [address] [place] Hemoglobin (Bld) [Mass/Vol] 13.1 g/dL Normal 11.5-15.5 [facility] Comment on above: Order Comment: Speci men Type: BLOOD SPECIMENOrdering Facility: [facility] Address: [address] [place] [address] Performed By: #### 5 7021-8 ####[facility] LABIA [id number] [place] [address] [place] Immature granulocytes (Bld) [#/Vol] 10*3/uL Normal <0.10 [facility] Comment on above: Order Comment: Speci men Type: BLOOD SPECIMENOrdering Facility: [facility] Address: [address] [place] [address] Performed By: #### 5 7021-8 ####[facility] LABIA [id number] [place] [address] [place] Immature granulocytes/100 WBC (Bld) 0.3 % Normal [facility] Comment on above: Order Comment: Speci men Type: BLOOD SPECIMENOrdering Facility: [facility] Address: [address] [place] [address] Performed By: #### 5 7021-8 ####[facility] LABIA [id number] [place] [address] [place] Lymphocytes (Bld) [#/Vol] 2.21 10*3/uL Normal 1.00-4.00 [facility] Comment on above: Order Comment: Speci men Type: BLOOD SPECIMENOrdering Facility: [facility] Address: [address] [place] [address] Performed By: #### 5 7021-8 ####[facility] LABCLIA [id number] [place] [address] [place] Lymphocytes/100 WBC (Bld) 30.8 % Normal [facility] Comment on above: Order Comment: Speci men Type: BLOOD SPECIMENOrdering Facility: [facility] Address: [address] [place] [address] Performed By: #### 5 7021-8 ####[facility] LABIA [id number] [place] [address] [place] MCH (RBC) [Entitic mass] 31.9 pg Normal 26.0-34.0 [facility] Comment on above: Order Comment: Speci men Type: BLOOD SPECIMENOrdering Facility: [facility] Address: [address] [place] [address] Performed By: #### 5 7021-8 ####[facility] LABIA [id number] [place] [address] [place] MCHC (RBC) [Mass/Vol] 32.4 g/dL Normal 30.5-36.0 [facility] Comment on above: Order Comment: Speci men Type: BLOOD SPECIMENOrdering Facility: [facility] Address: [address] [place] [address] Performed By: #### 5 7021-8 ####[facility] LABIA [id number] [place] [address] [place] MCV (RBC) [Entitic vol] 98.3 fL Normal 80.0-100.0 [facility] Comment on above: Order Comment: Speci men Type: BLOOD SPECIMENOrdering Facility: [facility] Address: [address] [place] [address] Performed By: #### 5 7021-8 ####[facility] LABIA [id number] [place] [address] [place] Monocytes (Bld) [#/Vol] 0.68 10*3/uL Normal <0.87 [facility] Comment on above: Order Comment: Speci men Type: BLOOD SPECIMENOrdering Facility: [facility] Address: [address] [place] [address] Performed By: #### 5 7021-8 ####[facility] LABCLIA [id number] [place] [address] [place] Monocytes/100 WBC (Bld) 9.5 % Normal [facility] Comment on above: Order Comment: Speci men Type: BLOOD SPECIMENOrdering Facility: [facility] Address: [address] [place] [address] Performed By: #### 5 7021-8 ####[facility] LABCLIA [id number] [place] [address] [place] Neutrophils (Bld) [#/Vol] 4.19 10*3/uL Normal 1.45-7.50 [facility] Comment on above: Order Comment: Speci men Type: BLOOD SPECIMENOrdering Facility: [facility] Address: [address] [place] [address] Performed By: #### 5 7021-8 ####[facility] LABCLIA [id number] [place] [address] [place] Neutrophils/100 WBC (Bld) 58.3 % Normal [facility] Comment on above: Order Comment: Speci men Type: BLOOD SPECIMENOrdering Facility: [facility] Address: [address] [place] [address] Performed By: #### 5 7021-8 ####[facility] LABCLIA [id number] [place] [address] [place] Nucleated RBC (Bld) [#/Vol] 10*3/uL Normal <0.01 [facility] Comment on above: Order Comment: Speci men Type: BLOOD SPECIMENOrdering Facility: [facility] Address: [address] [place] [address] Performed By: #### 5 7021-8 ####[facility] LABCLIA [id number] [place] [address] [place] Nucleated RBC/100 WBC (Bld) [Ratio] 0.0 /100 WBC Normal [facility] Comment on above: Order Comment: Speci men Type: BLOOD SPECIMENOrdering Facility: [facility] Address: [address] [place] [address] Performed By: #### 5 7021-8 ####[facility] LABCLIA [id number] [place] [address] [place] Platelet mean volume (Bld) [Entitic vol] 10.4 fL Normal 9.0-12.7 [facility] Comment on above: Order Comment: Speci men Type: BLOOD SPECIMENOrdering Facility: [facility] Address: [address] [place] [address] Performed By: #### 5 7021-8 ####[facility] LABIA [id number] [place] [address] [place] Platelets (Bld) [#/Vol] 194 10*3/uL Normal 150-400 [facility] Comment on above: Order Comment: Speci men Type: BLOOD SPECIMENOrdering Facility: [facility] Address: [address] [place] [address] Performed By: #### 5 7021-8 ####[facility] LABIA [id number] [place] [address] [place] RBC (Bld) [#/Vol] 4.11 10*6/uL Normal 3.90-5.20 [facility] Comment on above: Order Comment: Speci men Type: BLOOD SPECIMENOrdering Facility: [facility] Address: [address] [place] [address] Performed By: #### 5 7021-8 ####[facility] LABCLIA [id number] [place] [address] [place] WBC (Bld) [#/Vol] 7.18 10*3/uL Normal 3.70-11.00 [facility] Comment on above: Order Comment: Speci men Type: BLOOD SPECIMENOrdering Facility: [facility] Address: [place] [address] Performed By: #### 5 7021-8 ####[facility] LABCLIA [id number] [address] [place] [address] [place] CONSULT PROGon 10-17-2023 CONSULT PROG HNO ID: [id number] Author: BENNY STINSON RPh Service: Pharmacy Author [...] indication Empiric Pharmacist may modify dose per [facility] dose optimization consult agreement Yes 10/17/23 1300 For medications which dose is dependent on renal function, a pharmacist will monitor renal function daily and adjust doses accordingly. Any dose adjustments needed based on changes in indication will require an LIP to enter a new order. Managing Pharmacist: Benny Stinson RPh, available at: [phone] If you have any questions, please contact Pharmacy at [phone]. Estimated Creatinine Clearance: 15.1 mL/min (A) (based [...] Temp: 36.6 ?C (97.9 ?F) Benny Stinson [facility] October 17, 2023 3:17 PM Normal [facility] HISTORY PHYSICALon HISTORY PHYSICAL HNO ID: [id number] Author: RICCO GARLAND MD Service: Urology Author [...] Dr. Dada Thomas MD Resident PGY-2 Urology [facility] [place] [facility] Pager [phone] For weekend or after hours issues please [place] [phone] 11:03 AM 10/17/2023 HPI Jesús Nolan is [...] Garland MD, FACS Director, Surgical Stone Disease, [facility] [place] correctional therapy director, [facility] [employer] [facility] Pager [phone] 10/17/2023 Normal [facility] PT panel Coag (PPP)on 2023 INR Coag (PPP) [Relative time] 1.0 {INR} Normal 0.9-1.3 [facility] Comment on above: Order Comment: Speci men Type: BLOOD SPECIMENOrdering Facility: [facility] Address: [place] [address] Result Comment: Kristen min K Antagonist (VKA) Therapeutic Range: INR 2 to 3 (Target INR of 2.5) Note: For patients treated with VKA drugs, such as warfarin, the [employer] 2012 Guideline recommends [...] to 3.5 (target INR of 3). Geronimo GH, et al. Chest 2012, 141:7S-47S Shital RA, et al. [facility] 2017, 70: 252-289 Performed By: #### 3 4528-0 ####[facility] [id number] [place] [address] [place] PT Coag (PPP) [Time] 11.1 s Normal 9.7-13.0 [facility] Comment on above: Order Comment: Speci men Type: BLOOD SPECIMENOrdering Facility: [facility] Address: [address] [place] [address] Performed By: #### 3 4528-0 ####[facility] [id number] [address] [place] Jenaro 10-06-2023 KENISHAN Telephone (MICHAEL) JESÚS NOLAN ([id number]) 1935 F Date Time Provider Department 10/06/23 LETY GARCIA During your visit today, we recorded the following information about you: Lety Garcia RN 10/06/2023 12:04 PM Signed ----- Message from Fanny Nagel Ampoule Filler II sent at 10/06/2023 10:22 AM EST ----- Regarding: discuss abx for UTI prior to surgery Contact: Nc! Pt's daughter, Maranda, has a few questions and would like to discuss abx for UTI prior to surgery w/ Dr. Garland on 10/18 if someone could please reach out to her when possible. Thanks so much, Lety Alvarado RN 10/06/2023 12:18 PM Signed Returned call to speak with daughter. Daughter explained that patient had new urine done this week with her [facility] nephrology team, showing a UTI. They wanted [...] Date Reviewed: 09/23/2023 Reviewed by: Stefanie Ocampo, GLORIA.PSYCHIATRIC MENTAL HEALTH NURSE, DNP - Fully Assessed Reason for Visit: [...] Encounter Status:Closed by LETY GARCIA on 10/07/23 [facility] Jenaro 09-29-2023 JOSH Telephone (URON) JESÚS NOLAN ([id number]) 1935 F Date Time Provider Department 09/29/23 [...] Called and spoke with patients daughter and [place]. Informed her that Dr. Garland has ordered Keflex to start 1 week prior to patients scheduled surgery. Informed her that this was sent to [facility] in [place] and patient should be sure to begin about 1 week prior and no sooner as it would select for resistant bacteria. Patients daughter voiced understanding. Provided office number if questions arise. Moni Chaudhari RN October 01, 2023 9:29 AM Allergies As of Date: 09/29/2023 (No Known Allergies) Date Reviewed: 09/23/2023 Reviewed by: Stefanie Ocampo APRN.KENISHA, LAUREN - Fully Assessed Reason for Visit: Results [...] Status:Closed by MONI CHAUDHARI on 09/29/23 Normal [facility] Bacteria Ur Culton Bacteria identified Cx Nom [...] , Intermediate >32 , Resistant >64 Abnormal [facility] Comment on above: Performed By: #### 6 30-4 ####[facility] LABCLIA [id number] [place] [address] [place] CBC W Auto Differential pane l (Bld)on 09-23-2023 Basophils (Bld) [#/Vol] 10*3/uL Normal <0.11 [facility] Comment on above: Order Comment: Speci men Type: BLOOD SPECIMENOrdering Facility: [facility] Address: [address] [place] [address] Performed By: #### 5 7021-8 ####[facility] LABCLIA [id number] [place] [address] [place] Basophils/100 WBC (Bld) 0.3 % Normal [facility] Comment on above: Order Comment: Speci men Type: BLOOD SPECIMENOrdering Facility: [facility] Address: [address] [place] [address] Performed By: #### 5 7021-8 ####[facility] LABCLIA [id number] [place] [address] [place] Differential cell count method Nom (Bld) Auto Normal [facility] Comment on above: Order Comment: Speci men Type: BLOOD SPECIMENOrdering Facility: [facility] Address: [address] [place] [address] Performed By: #### 5 7021-8 ####[facility] LABCLIA [id number] [place] [address] [place] Eosinophils (Bld) [#/Vol] 0.16 10*3/uL Normal <0.46 [facility] Comment on above: Order Comment: Speci men Type: BLOOD SPECIMENOrdering Facility: [facility] Address: [address] [place] [address] Performed By: #### 5 7021-8 ####[facility] LABCLIA [id number] [place] [address] [place] Eosinophils/100 WBC (Bld) 2.2 % Normal [facility] Comment on above: Order Comment: Speci men Type: BLOOD SPECIMENOrdering Facility: [facility] Address: [address] [place] [address] Performed By: #### 5 7021-8 ####[facility] LABCLIA [id number] [place] [address] [place] Erythrocyte distribution width (RBC) [Ratio] 14.0 % Normal 11.5-15.0 [facility] Comment on above: Order Comment: Speci men Type: BLOOD SPECIMENOrdering Facility: [facility] Address: [address] [place] [address] Performed By: #### 5 7021-8 ####[facility] LABCLIA [id number] [place] [address] [place] Hematocrit (Bld) [Volume fraction] 39.8 % Normal 36.0-46.0 [facility] Comment on above: Order Comment: Speci men Type: BLOOD SPECIMENOrdering Facility: [facility] Address: [address] [place] [address] Performed By: #### 5 7021-8 ####[facility] LABCLIA [id number] [address] [place] [address] [place] Hemoglobin (Bld) [Mass/Vol] 12.6 g/dL Normal 11.5-15.5 [facility] Comment on above: Order Comment: Speci men Type: BLOOD SPECIMENOrdering Facility: [facility] Address: [address] [place] [address] Performed By: #### 5 7021-8 ####[facility] LABCLIA [id number] [place] [address] [place] Immature granulocytes (Bld) [#/Vol] 10*3/uL Normal <0.10 [facility] Comment on above: Order Comment: Speci men Type: BLOOD SPECIMENOrdering Facility: [facility] Address: [address] [place] [address] Performed By: #### 5 7021-8 ####[facility] LABCLIA [id number] [place] [address] [place] Immature granulocytes/100 WBC (Bld) 0.1 % Normal [facility] Comment on above: Order Comment: Speci men Type: BLOOD SPECIMENOrdering Facility: [facility] Address: [address] [place] [address] Performed By: #### 5 7021-8 ####[facility] LABCLIA [id number] [place] [address] [place] Lymphocytes (Bld) [#/Vol] 2.33 10*3/uL Normal 1.00-4.00 [facility] Comment on above: Order Comment: Speci men Type: BLOOD SPECIMENOrdering Facility: [facility] Address: [address] [place] [address] Performed By: #### 5 7021-8 ####[facility] LABCLIA [id number] [place] [address] [place] Lymphocytes/100 WBC (Bld) 31.4 % Normal [facility] Comment on above: Order Comment: Speci men Type: BLOOD SPECIMENOrdering Facility: [facility] Address: [address] [place] [address] Performed By: #### 5 7021-8 ####[facility] LABIA [id number] [place] [address] [place] MCH (RBC) [Entitic mass] 31.7 pg Normal 26.0-34.0 [facility] Comment on above: Order Comment: Speci men Type: BLOOD SPECIMENOrdering Facility: [facility] Address: [address] [place] [address] Performed By: #### 5 7021-8 ####[facility] LABIA [id number] [place] [address] [place] MCHC (RBC) [Mass/Vol] 31.7 g/dL Normal 30.5-36.0 [facility] Comment on above: Order Comment: Speci men Type: BLOOD SPECIMENOrdering Facility: [facility] Address: [address] [place] [address] Performed By: #### 5 7021-8 ####[facility] LABIA [id number] [place] [address] [place] MCV (RBC) [Entitic vol] 100.3 fL High 80.0-100.0 [facility] Comment on above: Order Comment: Speci men Type: BLOOD SPECIMENOrdering Facility: [facility] Address: [address] [place] [address] Performed By: #### 5 7021-8 ####[facility] LABIA [id number] [place] [address] [place] Monocytes (Bld) [#/Vol] 0.77 10*3/uL Normal <0.87 [facility] Comment on above: Order Comment: Speci men Type: BLOOD SPECIMENOrdering Facility: [facility] Address: [address] [place] [address] Performed By: #### 5 7021-8 ####[facility] LABIA [id number] [place] [address] [place] Monocytes/100 WBC (Bld) 10.4 % Normal [facility] Comment on above: Order Comment: Speci men Type: BLOOD SPECIMENOrdering Facility: [facility] Address: [address] [place] [address] Performed By: #### 5 7021-8 ####[facility] LABCLIA [id number] [place] [address] [place] Neutrophils (Bld) [#/Vol] 4.14 10*3/uL Normal 1.45-7.50 [facility] Comment on above: Order Comment: Speci men Type: BLOOD SPECIMENOrdering Facility: [facility] Address: [address] [place] [address] Performed By: #### 5 7021-8 ####[facility] LABCLIA [id number] [place] [address] [place] Neutrophils/100 WBC (Bld) 55.6 % Normal [facility] Comment on above: Order Comment: Speci men Type: BLOOD SPECIMENOrdering Facility: [facility] Address: [address] [place] [address] Performed By: #### 5 7021-8 ####[facility] LABCLIA [id number] [place] [address] [place] Nucleated RBC (Bld) [#/Vol] 10*3/uL Normal <0.01 [facility] Comment on above: Order Comment: Speci men Type: BLOOD SPECIMENOrdering Facility: [facility] Address: [address] [place] [address] Performed By: #### 5 7021-8 ####[facility] LABCLIA [id number] [place] [address] [place] Nucleated RBC/100 WBC (Bld) [Ratio] 0.0 /100 WBC Normal [facility] Comment on above: Order Comment: Speci men Type: BLOOD SPECIMENOrdering Facility: [facility] Address: [address] [place] [address] Performed By: #### 5 7021-8 ####[facility] LABCLIA [id number] [place] [address] [place] Platelet mean volume (Bld) [Entitic vol] 10.3 fL Normal 9.0-12.7 [facility] Comment on above: Order Comment: Speci men Type: BLOOD SPECIMENOrdering Facility: [facility] Address: [address] [place] [address] Performed By: #### 5 7021-8 ####[facility] LABCLIA [id number] [place] [address] [place] Platelets (Bld) [#/Vol] 228 10*3/uL Normal 150-400 [facility] Comment on above: Order Comment: Speci men Type: BLOOD SPECIMENOrdering Facility: [facility] Address: [address] [place] [address] Performed By: #### 5 7021-8 ####[facility] LABCLIA [id number] [place] [address] [place] RBC (Bld) [#/Vol] 3.97 10*6/uL Normal 3.90-5.20 [facility] Comment on above: Order Comment: Speci men Type: BLOOD SPECIMENOrdering Facility: [facility] Address: [address] [place] [address] Performed By: #### 5 7021-8 ####[facility] LABCLIA [id number] [place] [address] [place] WBC (Bld) [#/Vol] 7.43 10*3/uL Normal 3.70-11.00 [facility] Comment on above: Order Comment: Speci men Type: BLOOD SPECIMENOrdering Facility: [facility] Address: [address] [place] [address] Performed By: #### 5 7021-8 ####[facility] LABCLIA [id number] [address] [place] BLOOD TYPEon 023 ABO A Normal [facility] Comment on above: Order Comment: Speci men Type: BLOOD SPECIMENOrdering Facility: [facility] Address: [address] [place] [address] Performed By: #### C ONABO ####[facility] BLOOD BANKIA [id number] [place] [address] [place] Rh Nom (Bld) Positive Normal [facility] Comment on above: Order Comment: Speci men Type: BLOOD SPECIMENOrdering Facility: [facility] Address: [address] [place] [address] Performed By: #### C ONABO ####[facility] BLOOD BANKUNIVERS[facility] [id number] [place] [address] [place] Comprehensive metabolic 2000 panelon 09-23-2023 Albumin [Mass/Vol] 4.3 g/dL Normal 3.9-4.9 [facility] Comment on above: Order Comment: Speci men Type: BLOOD SPECIMENOrdering Facility: [facility] Address: [address] [place] [address] Performed By: #### 2 4323-8 ####[facility] LABCLIA [id number] [place] [address] [place] ALP [Catalytic activity/Vol] 96 U/L Normal 34-123 [facility] Comment on above: Order Comment: Speci men Type: BLOOD SPECIMENOrdering Facility: [facility] Address: [address] [place] [address] Performed By: #### 2 4323-8 ####[facility] LABIA [id number] [place] [address] [place] ALT [Catalytic activity/Vol] 17 U/L Normal 7-38 [facility] Comment on above: Order Comment: Speci men Type: BLOOD SPECIMENOrdering Facility: [facility] Address: [address] [place] [address] Performed By: #### 2 4323-8 ####[facility] LABCLIA [id number] [place] [address] [place] Anion gap [Moles/Vol] 15 mmol/L Normal 9-18 [facility] Comment on above: Order Comment: Speci men Type: BLOOD SPECIMENOrdering Facility: [facility] Address: [address] [place] [address] Performed By: #### 2 4323-8 ####[facility] LABCLIA [id number] [place] [address] [place] AST [Catalytic activity/Vol] 22 U/L Normal 13-35 [facility] Comment on above: Order Comment: Speci men Type: BLOOD SPECIMENOrdering Facility: [facility] Address: [address] [place] [address] Performed By: #### 2 4323-8 ####[facility] LABCLIA [id number] [place] [address] [place] Bilirubin [Mass/Vol] 0.3 mg/dL Normal 0.2-1.3 [facility] Comment on above: Order Comment: Speci men Type: BLOOD SPECIMENOrdering Facility: [facility] Address: [address] [place] [address] Performed By: #### 2 4323-8 ####[facility] LABCLIA [id number] [place] [address] [place] Calcium [Mass/Vol] 9.4 mg/dL Normal 8.5-10.2 [facility] Comment on above: Order Comment: Speci men Type: BLOOD SPECIMENOrdering Facility: [facility] Address: [address] [place] [address] Performed By: #### 2 4323-8 ####[facility] LABCLIA [id number] [address] [id number] [address] [place] Chloride [Moles/Vol] 103 mmol/L Normal 97-105 [facility] Comment on above: Order Comment: Speci men Type: BLOOD SPECIMENOrdering Facility: [facility] Address: [address] [place] [address] Performed By: #### 2 4323-8 ####[facility] LABIA [id number] [place] [address] [place] CO2 [Moles/Vol] 26 mmol/L Normal 22-30 [facility] Comment on above: Order Comment: Speci men Type: BLOOD SPECIMENOrdering Facility: [facility] Address: [address] [place] [address] Performed By: #### 2 4323-8 ####[facility] [id number] [address] [place] Creatinine [Mass/Vol] 2.05 mg/dL High 0.58-0.96 [facility] Comment on above: Order Comment: Speci men Type: BLOOD SPECIMENOrdering Facility: [facility] Address: [address] [place] [address] Performed By: #### 2 4323-8 ####[facility] LABUNIVERSITY OF VERMONT [facility] [id number] [place] [address] [place] Creatinine and Glomerular filtration rate.predicted panel (S/P/Bld) 23 mL/min/1.73m??? Low >=60 [facility] Comment on above: Order Comment: Speci men Type: BLOOD SPECIMENOrdering Facility: [facility] Address: [address] [place] [address] Result Comment: Melissa mated Glomerular Filtration Rate [...] actual GFR. Performed By: #### 2 4323-8 ####[facility] LABCLIA [id number] [place] [address] [place] Glucose [Mass/Vol] 107 mg/dL High 74-99 [facility] Comment on above: Order Comment: Speci men Type: BLOOD SPECIMENOrdering Facility: [facility] Address: [address] [place] [address] Result Comment: The [place] Diabetes Association (ADA) provides guidance for cutoff [...] Standards of Medical Care in Diabetes 2016, [place] Diabetes Association. Diabetes Care. 2016.39(Suppl 1). Performed By: #### 2 4323-8 ####[facility] LABIA [id number] [place] [address] [place] Potassium [Moles/Vol] 4.0 mmol/L Normal 3.7-5.1 [facility] Comment on above: Order Comment: Speci men Type: BLOOD SPECIMENOrdering Facility: [facility] Address: [address] [place] [address] Performed By: #### 2 4323-8 ####[facility] LABIA [id number] [place] [address] [place] Protein [Mass/Vol] 7.0 g/dL Normal 6.3-8.0 [facility] Comment on above: Order Comment: Speci men Type: BLOOD SPECIMENOrdering Facility: [facility] Address: [address] [place] [address] Performed By: #### 2 4323-8 ####[facility] LABCLIA [id number] [address] [place] Sodium [Moles/Vol] 144 mmol/L Normal 136-144 [facility] Comment on above: Order Comment: Speci men Type: BLOOD SPECIMENOrdering Facility: [facility] Address: [address] [place] [address] Performed By: #### 2 4323-8 ####[facility] LABIA [id number] [place] [address] [place] Urea nitrogen [Mass/Vol] 30 mg/dL High 7-21 [facility] Comment on above: Order Comment: Speci men Type: BLOOD SPECIMENOrdering Facility: [facility] Address: [address] [place] [address] Performed By: #### 2 4323-8 ####[facility] LABIA [id number] [address] [place] ECG COMPLETEon 09-23-2023 ECG COMPLETE Ventricular Rate : 6 2 BPM Atrial Rate : 62 BPM P-R Interval : 202 ms QRS Duration : 90 ms Q-T Interval : 424 ms QTC Calculation(Bazett) : 430 ms Calculated P Traer : 100 degrees Calculated R Traer : -29 degrees Calculated T Traer : 17 degrees NORMAL SINUS RHYTHM LEFT VENTRICULAR HYPERTROPHY POSSIBLE ANTEROSEPTAL MYOCARDIAL INFARCTION , 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 ECG Confirmed by MITZI PACHECO MD () on 10/13/2023 8:12:00 AM NAME : JESÚS NOLAN PID : [id number] : 1935 Gender : Female Race : ORD : [id number] Procedure Date : Sep 23 2023 15:23:33 Edit Date : Oct 13 2023 08:13:43 Diagnosis: NORMAL SINUS RHYTHM LEFT VENTRICULAR HYPERTROPHY POSSIBLE ANTEROSEPTAL MYOCARDIAL INFARCTION , 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 ECG Confirmed by MITZI PACHECO MD () on 10/13/2023 8:12:00 AM Test Reason : BEST POSSIBLE Location : 119 : A17 A17 Overread By : MITZI PACHECO MD Edited By : MITZI PACHECO MD Referred By : STEFANIE OCAMPO Acquired by : VERONIKA CONWAY Normal [facility] ECG COMPLETE Ventricular Rate : 7 5 BPM Atrial Rate : 75 BPM QRS Duration : 108 ms Q-T Interval : 410 ms QTC Calculation(Bazett) : 457 ms Calculated R Traer : -32 degrees Calculated T Traer : 97 degrees 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 , 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 ECG Reconfirmed by KIAN CLARK MD ([id number]) on 09/23/2023 8:45:27 PM NAME : JESÚS NOLAN PID : [id number] : 1935 Gender : Female Race : ORD : [id number] Procedure Date : Sep 23 2023 12:56:29 Edit Date : Sep 23 2023 20:45:28 Diagnosis: 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 , 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 ECG Reconfirmed by KIAN CLARK MD ([id number]) on 09/23/2023 8:45:27 PM Test Reason : Location : 119 : A17 Overread By : KIAN CLARK MD Edited By : KIAN CLARK MD Referred By : , Acquired by : SANTI TAVERA [facility] HISTORY PHYSICALon 3 HISTORY PHYSICAL HNO ID: [id number] Author: STEFANIE OCAMPO APRN.PSYCHIATRIC MENTAL HEALTH NURSE, DNP Service: ? Author Type: Nurse Practitioner [...] 35 kg/m2 Non-male patient STOP-Bang Score: 1 [id number] Score: Hypertension history: Yes [id number] Score: 1 ARISCAT Score: Age: >80 Preoperative [...] fevers. Neurological: No history of TIA's, stroke, CALL CENTER ASSISTANT tumor, impaired sensorium, hemiplegia, paraplegia or quadraplegia. No neurological symptoms or problems. Respiratory: No history of current cough or dyspnea, or pneumonia in the past 6 weeks. No history of respiratory/pulmonary symptoms or problems. Cardiovascular: Positive for: hypertension (on rx) Negative for: abdominal aortic aneurysm, AICD/PPM, anticoagulation (more content not included)... Normal [facility] TYPE AND SCREEN,30 DAYon ABO A Normal [facility] Comment on above: Order Comment: Speci men Type: BLOOD SPECIMENOrdering Facility: [facility] Address: [address] [place], [place] [address] Performed By: #### T SCR30 ####[facility] BLOOD BANKCLIA [id number] [address] [place] HISTORICAL AB SCR STATUS Negative Normal [facility] Comment on above: Order Comment: Speci men Type: BLOOD SPECIMENOrdering Facility: [facility] Address: [address] [place] [address] Performed By: #### T SCR30 ####[facility] BLOOD BANKCLIA [id number] [address] [place] Rh Nom (Bld) Positive Normal [facility] Comment on above: Order Comment: Speci men Type: BLOOD SPECIMENOrdering Facility: [facility] Address: [address] [place] [address] Performed By: #### T SCR30 ####[facility] BLOOD BANKCLIA [id number] [address] [place] Consultation Noteon 09-12-20 Consultation Note [id number]#1.0 0TIFF Normal [facility] Bacteria Ur Culton Bacteria identified Cx Nom (U) CULTURE, URINE: No growth (<1,000 CFU/ml) Normal [facility] Comment on above: Performed By: #### 6 30-4 ####[facility] LABCLIA [id number] [address] [place] CNOVon 09-07-2023 CNOV Office Visit (UROLMN ) JESÚS NOLAN ([id number]) 1935 F Date Time Provider Department 09/07/23 [...] hardly hear me. Though not listed in [facility], patient's daughter indicates Dr. Harsh Clayton recommended [...] based on size, location, hounsfield units and pmdf-jh-onprp distance: 0% 3. Ureteroscopy - risks of [...] with more than 50% of the total avvz-df-bydr time of the visit devoted to patient counseling/coordinatio n of care. Ricco Garland MD, FACS Director, Surgical Stone Disease, [facility] [place] correctional therapy director, [facility] Pager [phone] 09/07/2023 Referring Provider: SELF [200] Allergies As of Date: 09/07/2023 (No Known Allergies) Date Reviewed: 09/07/2023 Reviewed by: Karen Calvillo OCCA - Fully Assessed Primary Visit Diagnosis:Staghorn calculus [N20.0] Other Visit Diagnoses:Abnormal urinalysis [R82.90] History of recurrent UTIs [Z87.440] Essential hypertension [I10] Constipation, unspecified constipation type [K59.00] Arthritis [M19.90] Status post hip surgery [Z98.890] Order(s):URINE CULTURE [SQURCUL] Order #: [id number]. #:[id number] estradiol (ESTRACE) 0.01 % (0.1 mg/gram) vaginal creamUse 1 g vaginally one time a week.Disp: 42 gRfl: 1 Prescriptions (more content not included)... Normal [facility] URINALYSIS, REFLEX MICROSCOP ICon 09-07-2023 Bacteria LM.HPF (Urine sed) [#/Area] Few Abnormal None Seen [facility] Comment on above: Order Comment: Speci men Type: URINE SPECIMENOrdering Facility: [facility] Address: [address] [place] [address] Performed By: #### L [id number] ####[facility] LABCLIA [id number] [place] [address] [place] Bilirubin Ql (U) Negative Normal Negative [facility] Comment on above: Order Comment: Speci men Type: URINE SPECIMENOrdering Facility: [facility] Address: [address] [place] [address] Performed By: #### L [id number] ####[facility] LABCLIA [id number] [place] [address] [place] Clarity (Unsp spec) Clear Normal Clear [facility] Comment on above: Order Comment: Speci men Type: URINE SPECIMENOrdering Facility: [facility] Address: [address] [place] [address] Performed By: #### L [id number] ####[facility] LABCLIA [id number] [place] [address] [place] Color (U) Light Yellow Normal Yellow [facility] Comment on above: Order Comment: Speci men Type: URINE SPECIMENOrdering Facility: [facility] Address: [address] [place] [address] Performed By: #### L [id number] ####[facility] LABCLIA [id number] [place] [address] [place] Epithelial cells LM.HPF (Urine sed) [#/Area] Few Normal [facility] Comment on above: Order Comment: Speci men Type: URINE SPECIMENOrdering Facility: [facility] Address: [address] [place] [address] Performed By: #### L [id number] ####[facility] LABCLIA [id number] [place] [address] [place] Glucose Test strip (U) [Mass/Vol] Negative Normal Trace, Negative [facility] Comment on above: Order Comment: Speci men Type: URINE SPECIMENOrdering Facility: [facility] Address: [address] [place] [address] Performed By: #### L [id number] ####[facility] LABCLIA [id number] [place] [address] [place] Hemoglobin Ql (U) Negative Normal Negative, Trace [facility] Comment on above: Order Comment: Speci men Type: URINE SPECIMENOrdering Facility: [facility] Address: [address] [place] [address] Performed By: #### L [id number] ####[facility] LABCLIA [id number] [place] [address] [place] Hyaline casts (Urine sed) [#/Area] 1-3 /LPF Abnormal 0 /LPF [facility] Comment on above: Order Comment: Speci men Type: URINE SPECIMENOrdering Facility: [facility] Address: [address] [place] [address] Performed By: #### L [id number] ####[facility] LABCLIA [id number] [place] [address] [place] Ketones Ql (U) Negative Normal Negative, Trace [facility] Comment on above: Order Comment: Speci men Type: URINE SPECIMENOrdering Facility: [facility] Address: [address] [place] [address] Performed By: #### L [id number] ####[facility] LABCLIA [id number] [place] [address] [place] Leukocyte esterase Test strip Ql (U) 500 Dorian/uL Abnormal Negative, 25 Dorian/uL [facility] Comment on above: Order Comment: Speci men Type: URINE SPECIMENOrdering Facility: [facility] Address: [address] [place] [address] Performed By: #### L [id number] ####[facility] LABCLIA [id number] [place] [address] [place] Nitrite Ql (U) Negative Normal Negative [facility] Comment on above: Order Comment: Speci men Type: URINE SPECIMENOrdering Facility: [facility] Address: [address] [place] [address] Performed By: #### L [id number] ####[facility] LABCLIA [id number] [place] [address] [place] pH (U) 5.5 [pH] Normal 5.0-8.0 [facility] Comment on above: Order Comment: Speci men Type: URINE SPECIMENOrdering Facility: [facility] Address: [address] [place] [address] Performed By: #### L [id number] ####[facility] LABCLIA [id number] [place] [address] [place] Protein (U) [Mass/Vol] Trace Normal Trace , Negative [facility] Comment on above: Order Comment: Speci men Type: URINE SPECIMENOrdering Facility: [facility] Address: [address] [place] [address] Performed By: #### L [id number] ####[facility] LABCLIA [id number] [place] [address] [place] RBC LM.HPF (Urine sed) [#/Area] 3-5 /HPF Abnormal 0-3 /HPF [facility] Comment on above: Order Comment: Speci men Type: URINE SPECIMENOrdering Facility: [facility] Address: [address] [place] [address] Performed By: #### L [id number] ####[facility] LABCLIA [id number] [place] [address] [place] Specific gravity (U) [Rel density] 1.014 Normal 1.005-1.030 [facility] Comment on above: Order Comment: Speci men Type: URINE SPECIMENOrdering Facility: [facility] Address: [address] [place] [address] Performed By: #### L [id number] ####[facility] LABIA [id number] [place] [address] [place] Urobilinogen Ql (U) Negative Normal Negative [facility] Comment on above: Order Comment: Speci men Type: URINE SPECIMENOrdering Facility: [facility] Address: [address] [place] [address] Performed By: #### L [id number] ####[facility] LABIA [id number] [place] [address] [place] WBC LM.HPF (Urine sed) [#/Area] /[HPF] Abnormal 0-5 /HPF [facility] Comment on above: Order Comment: Speci men Type: URINE SPECIMENOrdering Facility: [facility] Address: [address] [place] [address] Performed By: #### L [id number] ####[facility] LABIA [id number] [place] [address] [place] Consultation Noteon 09-06-20 Consultation Note [id number]#1.0 0TIFF Normal [facility] Consultation Noteon 09-03-20 Consultation Note [id number]#1.0 0TIFF Normal [facility] Lab Reportson 09-03-2023 Lab Reports [id number]#1.0 0TIFF Normal [facility] Basic Metabolic Panelon 12-0 Anion gap [Moles/Vol] 11.2 mmol/L Normal 6.0-15.0 [facility] Comment on above: Performed By: #### EDITA Warren CBCNO ####[facility] [place] [address] [facility] Calcium [Mass/Vol] 8.0 mg/dL Low 8.6-10.3 [facility] Comment on above: Performed By: #### EDITA Warren CBCNO ####[place] [place] [address] [facility] Chloride [Moles/Vol] 110 mmol/L High 98-107 [facility] Comment on above: Performed By: #### EDITA Warren CBCNO ####[address] [place] [address] [facility] CO2 [Moles/Vol] 25.2 mmol/L Normal 21.0-31.0 [facility] Comment on above: Performed By: #### EDITA Warren CBCNO ####[address] [place] [address] [facility] Creatinine [Mass/Vol] 2.30 mg/dL High 0.60-1.20 [facility] Comment on above: Performed By: #### EDITA Warren, CBCNO ####[address] [place] [address] [facility] Creatinine Clr Calc Pharmacy 14.54 [facility] Comment on above: Performed By: #### EDITA Warren CBCNO ####[address] [place] [address] [place] GFR/1.73 sq M.predicted MDRD (S/P/Bld) [Vol rate/Area] 20.194 mL/min/{1.73_m2} [facility] Comment on above: Performed By: #### EDITA Warren, CBCNO ####[address] [place] [address] [facility] Glucose [Mass/Vol] 109 mg/dL High 70-100 [facility] Comment on above: Result Comment: [facility] Glucose Reference Range is dependent on time and content of last meal. Glucose of more than 200 mg/dL in a nonstressed, ambulatory subject supports the diagnosis of Diabetes Mellitus. ADA recommended reference range Performed By: #### M EDITA Sánchez, CBCNO ####[facility] [address] [place] [address] [facility] Potassium [Moles/Vol] 4.4 mmol/L Normal 3.5-5.1 [facility] Comment on above: Performed By: #### M EDITA Sánchez, CBCNO ####[address] [place] [address] [facility] Sodium [Moles/Vol] 142 mmol/L Normal 136-145 [facility] Comment on above: Performed By: #### EDITA Warren, CBCNO ####[address] [place] [address] [facility] Urea nitrogen [Mass/Vol] 31 mg/dL High 7-25 [facility] Comment on above: Performed By: #### EDITA Warern, CBCNO ####[address] [place] [address] [facility] Hemogram CBC Without Diffon 09-02-2023 Erythrocyte distribution width (RBC) [Ratio] 14.1 % Normal 11.9-15.3 [facility] Comment on above: Performed By: #### EDITA Warren, CBCNO ####[address] [facility] Hematocrit (Bld) [Volume fraction] 32.6 % Low 34.0-46.4 [facility] Comment on above: Performed By: #### EDITA Warren, CBCNO ####[address] [place] [address] [facility] Hemoglobin (Bld) [Mass/Vol] 10.9 g/dL Low 11.8-15.4 [facility] Comment on above: Performed By: #### EDITA Warren, CBCNO ####[address] [place] [address] [facility] MCH (RBC) [Entitic mass] 31.6 pg Normal 24.7-34.3 [facility] Comment on above: Performed By: #### EDITA Warren, CBCNO ####[address] MCV (RBC) [Entitic vol] 94.7 fL Normal 80-100 [facility] Comment on above: Performed By: #### EDITA Warren, CBCNO ####[place] [id number] [facility] Mean Corpuscular HGB Conc 33.4 g/dL Normal 32.0-35.0 [facility] Comment on above: Performed By: #### EDITA Warren, CBCNO ####[address] Platelet mean volume (Bld) [Entitic vol] 8.8 fL Normal 6.3-10.7 [facility] Comment on above: Result Comment: PERF ORMED BY: [facility] [address] [place] [address] PATHOLOG[address] PC TECH BARBARA MUNOZ M.D. Performed By: #### EDITA Warren, CBCNO ####[address] Platelets (Bld) [#/Vol] 192 10*3/uL Normal 150-450 [facility] Comment on above: Performed By: #### EDITA Warren, CBCNO ####[place] [id number] [facility] RBC (Bld) [#/Vol] 3.44 10*6/uL Low 3.60-5.00 [facility] Comment on above: Performed By: #### EDITA Warren, CBCNO ####[place] [id number] [facility] WBC (Bld) [#/Vol] 7.8 10*3/uL Normal 3.8-11.6 [facility] Comment on above: Performed By: #### EDITA Warren, CBCNO ####[place] [id number] [facility] Magnesiumon 12-07-2023 Magnesium [Mass/Vol] 2.5 mg/dL Normal 1.9-2.7 [facility] Comment on above: Result Comment: PERF ORMED BY: [facility] [address] [place] [address] PATHOLOGIST PC TECH BARBARA MUNOZ M.D. Performed By: #### M G, BMP, CBCNO ####[place] [id number] [facility] Ammoniaon 09-01-2023 Ammonia (P) [Moles/Vol] 23 umol/L Normal 11-35 [facility] Comment on above: Result Comment: PERF ORMED BY: [facility] [address] [place] [address] PATHOLOGIST PC TECH BARBARA MUNOZ M.D. Performed By: #### A MM ####[address] Basic Metabolic Panelon Anion gap [Moles/Vol] 11.9 mmol/L Normal 6.0-15.0 [facility] Comment on above: Performed By: #### V [id number], MG, CBC, BMP, TSH3 ####[place] [id number] [facility] Calcium [Mass/Vol] 8.4 mg/dL Low 8.6-10.3 [facility] Comment on above: Performed By: #### V [id number], MG, CBC, BMP, TSH3 ####[place] [address] [facility] Chloride [Moles/Vol] 111 mmol/L High 98-107 [facility] Comment on above: Performed By: #### V [id number], MG, CBC, BMP, TSH3 ####[place] [id number] [facility] CO2 [Moles/Vol] 23.2 mmol/L Normal 21.0-31.0 [facility] Comment on above: Performed By: #### V [id number], MG, CBC, BMP, TSH3 ####[address] [place] [id number] [facility] Creatinine [Mass/Vol] 2.45 mg/dL High 0.60-1.20 [facility] Comment on above: Performed By: #### V [id number], MG, CBC, BMP, TSH3 ####[place] [id number] [facility] Creatinine Clr Calc Pharmacy 13.65 [facility] Comment on above: Performed By: #### V [id number], MG, CBC, BMP, TSH3 ####[place] [id number] [facility] GFR/1.73 sq M.predicted MDRD (S/P/Bld) [Vol rate/Area] 18.720 mL/min/{1.73_m2} [facility] Comment on above: Performed By: #### V [id number], MG, CBC, BMP, TSH3 ####[place] [address] [facility] Glucose [Mass/Vol] 90 mg/dL Normal 70-100 [facility] Comment on above: Result Comment: [facility] Glucose Reference Range is dependent on time and content of last meal. Glucose of more than 200 mg/dL in a nonstressed, ambulatory subject supports the diagnosis of Diabetes Mellitus. ADA recommended reference range Performed By: #### V [id number], MG, CBC, BMP, TSH3 ####[place] [id number] [facility] Potassium [Moles/Vol] 4.1 mmol/L Normal 3.5-5.1 [facility] Comment on above: Performed By: #### V [id number], MG, CBC, BMP, TSH3 ####[place] [id number] [facility] Sodium [Moles/Vol] 142 mmol/L Normal 136-145 [facility] Comment on above: Performed By: #### V [id number], MG, CBC, BMP, TSH3 ####[facility] [id number] [place] [address] [facility] Urea nitrogen [Mass/Vol] 28 mg/dL High 7-25 [facility] Comment on above: Performed By: #### V [id number], MG, CBC, BMP, TSH3 ####[facility] [id number] [place] [address] [facility] Blood Cultureon 09-01-2023 Bacteria identified Cx Nom (Bld) PT IS BEING MEDICATED NO GROWTH 5 DAYS PERFORMED BY: [place] [address] PATH[address] TECH BARBARA MUNOZ M.D. [facility] Comment on above: Performed By: #### L SARANYA FUNESLD #### [facility] [address] Bacteria identified Cx Nom (Bld) PT IS BEING MEDICATED NO GROWTH 5 DAYS PERFORMED BY: [place] [address] PATH[address] TECH BARBARA MUNOZ M.D. [facility] Comment on above: Performed By: #### L SARANYA FUNESLD #### [facility] [address] [place] [address] CT abdomen pelvis wo conon 1 11-02-2022 CT abdomen pelvis wo con [facility] [place] [address] CT Scan Report Signed Patient: Jesús Nolan MR#: [id number] 34 : 1935 Acct:[id number] Age/Sex: 88 / F ADM Date: 08/31/23 Loc: Room: [address] [place] [address] Type: ADM IN Attending Dr: Riky Bundy [...] Isabel Vega M.D.09/01/2023 6:29 AM Dictation Location: [place] [address] Transcribed By: [facility] 09/01/23628 Dictated By: Isabel Vega MD 09/01/23622 Signed By: 09/01/23628 [facility] CT head/brain wo guilhermeon 09-01 CT head/brain wo [facility] [place] [address] CT Scan Report Signed Patient: Jesús Nolan MR#: [id number] [birth year] : 1935 Acct:[id number] Age/Sex: 88 / F ADM Date: 08/31/23 Loc: Room: [address] [place] [place] [address] Type: ADM IN Attending Dr: Riky Bundy [...] Isabel Vega M.D.09/01/2023 6:14 AM Dictation Location: [place] [address] Transcribed By: [facility] 09/01/23613 Dictated By: Isabel Vega MD 09/01/23611 Signed By: 09/01/23613 Normal [facility] Complete Blood Count Auto Di ffon 09-01-2023 Basophils (Bld) [#/Vol] 0.0 10*3/uL Normal 0.0-0.2 [facility] Comment on above: Result Comment: PERF ORMED BY: [facility] [address] [place] [address] PATHOLOG[address] PC TECH BARBARA MUNOZ M.D. Performed By: #### V [id number], MG, CBC, BMP, TSH3 ####[address] Basophils/100 WBC (Bld) 0.3 % Normal . [facility] Comment on above: Performed By: #### V [id number], MG, CBC, BMP, TSH3 ####[address] Eosinophils (Bld) [#/Vol] 0.1 10*3/uL Normal 0.0-0.45 [facility] Comment on above: Performed By: #### V [id number], MG, CBC, BMP, TSH3 ####[address] Eosinophils/100 WBC (Bld) 1.6 % Normal . [facility] Comment on above: Performed By: #### V [id number], MG, CBC, BMP, TSH3 ####[address] Erythrocyte distribution width (RBC) [Ratio] 14.0 % Normal 11.9-15.3 [facility] Comment on above: Performed By: #### V [id number], MG, CBC, BMP, TSH3 ####[address] Hematocrit (Bld) [Volume fraction] 35.9 % Normal 34.0-46.4 [facility] Comment on above: Performed By: #### V [id number], MG, CBC, BMP, TSH3 ####[address] Hemoglobin (Bld) [Mass/Vol] 11.9 g/dL Normal 11.8-15.4 [facility] Comment on above: Performed By: #### V [id number], MG, CBC, BMP, TSH3 ####[address] Lymphocytes (Bld) [#/Vol] 1.5 10*3/uL Normal 1.00-4.8 [facility] Comment on above: Performed By: #### V [id number], MG, CBC, BMP, TSH3 ####[address] Lymphocytes/100 WBC (Bld) 19.5 % Normal . [facility] Comment on above: Performed By: #### V [id number], MG, CBC, BMP, TSH3 ####[address] MCH (RBC) [Entitic mass] 31.2 pg Normal 24.7-34.3 [facility] Comment on above: Performed By: #### V [id number], MG, CBC, BMP, TSH3 ####[address] MCV (RBC) [Entitic vol] 94.6 fL Normal 80-100 [facility] Comment on above: Performed By: #### V [id number], MG, CBC, BMP, TSH3 ####[address] Mean Corpuscular HGB Conc 33.0 g/dL Normal 32.0-35.0 [facility] Comment on above: Performed By: #### V [id number], MG, CBC, BMP, TSH3 ####[address] Monocytes (Bld) [#/Vol] 1.0 10*3/uL High 0.0-0.8 [facility] Comment on above: Performed By: #### V [id number], MG, CBC, BMP, TSH3 ####[address] Monocytes/100 WBC (Bld) 12.4 % Normal . [facility] Comment on above: Performed By: #### V [id number], MG, CBC, BMP, TSH3 ####[address] Neutrophils (Bld) [#/Vol] 5.2 10*3/uL Normal 1.8-7.7 [facility] Comment on above: Performed By: #### V [id number], MG, CBC, BMP, TSH3 ####[address] Neutrophils/100 WBC (Bld) 66.2 % Normal . [facility] Comment on above: Performed By: #### V [id number], MG, CBC, BMP, TSH3 ####[address] NRBC% 0.0 /100{WBC} Normal 0-0.5 [facility] Comment on above: Performed By: #### V [id number], MG, CBC, BMP, TSH3 ####[address] Platelet mean volume (Bld) [Entitic vol] 8.2 fL Normal 6.3-10.7 [facility] Comment on above: Performed By: #### V [id number], MG, CBC, BMP, TSH3 ####[address] Platelets (Bld) [#/Vol] 216 10*3/uL Normal 150-450 [facility] Comment on above: Performed By: #### V [id number], MG, CBC, BMP, TSH3 ####[address] RBC (Bld) [#/Vol] 3.80 10*6/uL Normal 3.60-5.00 [facility] Comment on above: Performed By: #### V [id number], MG, CBC, BMP, TSH3 ####[address] WBC (Bld) [#/Vol] 7.8 10*3/uL Normal 3.8-11.6 [facility] Comment on above: Performed By: #### V [id number], MG, CBC, BMP, TSH3 ####[address] Consultation Noteon 09-01-20 23 Consultation Note [id number] Normal [facility] Dipstick and Microscopicon 1 11-02-2022 Appearance (U) Cloudy Critically abnormal Clear [facility] Comment on above: Order Comment: Name Collection Type:: Voided Performed By: #### C UU, ADDONUAPLUS #### [facility] [address] [place] [address] [place] Bacteria,Urine None Seen Normal None Seen [facility] Comment on above: Order Comment: Name Collection Type:: Voided Result Comment: PERF ORMED BY: [place] [address] PATHOLOGIST PC TECH BARBARA MUNOZ M.D. Performed By: #### C UU, ADDONUAPLUS #### [facility] [address] [place] [address] Bilirubin,Urine Negative Normal Negative [facility] Comment on above: Order Comment: Name Collection Type:: Voided Performed By: #### C UU, ADDONUAPLUS #### [facility] [address] [place] [address] [place] Color (U) Yellow Normal Yellow [facility] Comment on above: Order Comment: Name Collection Type:: Voided Performed By: #### C UU, ADDONUAPLUS #### [facility] [address] [place] [address] Glucose Ql (U) Normal Normal Normal [facility] Comment on above: Order Comment: Name Collection Type:: Voided Performed By: #### C UU, ADDONUAPLUS #### [facility] [address] [place] [address] [place] Ketones Ql (U) Negative Normal Negative [facility] Comment on above: Order Comment: Name Collection Type:: Voided Performed By: #### C UU, ADDONUAPLUS #### [facility] [address] [place] [address] Leukocyte esterase Test strip Ql (U) 4+ High Negative [facility] Comment on above: Order Comment: Name Collection Type:: Voided Performed By: #### C UU, ADDONUAPLUS #### [facility] [address] [place] [address] [place] Nitrite,Urine Negative Normal Negative [facility] Comment on above: Order Comment: Name Collection Type:: Voided Performed By: #### C UU, ADDONUAPLUS #### [facility] [address] [place] [address] Occult Blood,Urine Trace High Negative [facility] Comment on above: Order Comment: Name Collection Type:: Voided Result Comment: PERF ORMED BY: [place] [address] PATHOLOGIST PC TECH BARBARA MUNOZ M.D. Performed By: #### C UU, ADDONUAPLUS #### [address] pH (U) 6.0 [pH] Normal 5.0-9.0 [facility] Comment on above: Order Comment: Name Collection Type:: Voided Performed By: #### C UU, ADDONUAPLUS #### [facility] [address] [place] [address] Protein (U) [Mass/Vol] 30 mg/dL High Negative [facility] Comment on above: Order Comment: Name Collection Type:: Voided Performed By: #### C UU, ADDONUAPLUS #### [facility] [address] [place] [address] [place] RBC,Urine 1-2 Normal 0-4 [facility] Comment on above: Order Comment: Name Collection Type:: Voided Performed By: #### C UU, ADDONUAPLUS #### [facility] [address] [place] [address] [place] Specificy [place],Urine 1.016 Normal 1.001-1.030 [facility] Comment on above: Order Comment: Name Collection Type:: Voided Performed By: #### C UU, ADDONUAPLUS #### [place] [address] [place] Squamous Epithelial Cell,Urine 3-4 High 0-2 [facility] Comment on above: Order Comment: Name Collection Type:: Voided Performed By: #### C UU, ADDONUAPLUS #### [facility] [address] [place] [address] Urobilinogen,Urine Normal Normal Normal [facility] Comment on above: Order Comment: Name Collection Type:: Voided Performed By: #### C UU, ADDONUAPLUS #### [facility] [address] [place] [address] WBC,Urine 50-100 High 0-4 [facility] Comment on above: Order Comment: Name Collection Type:: Voided Performed By: #### C UU, ADDONUAPLUS #### [facility] [address] [place] [address] Lactic Acidon 09-01-2023 Lactate [Moles/Vol] 0.8 mmol/L Normal 0.5-2.2 [facility] Comment on above: Order Comment: PT IS BEING MEDICATED Result Comment: PERF ORMED BY: [place] [address] PATHOLOGIST PC TECH BARBARA MUNOZ M.D. Performed By: #### L ACTJUVENAL SANDS #### [facility] [address] [place] [address] Magnesiumon 09-01-2023 Magnesium [Mass/Vol] 2.2 mg/dL Normal 1.9-2.7 [facility] Comment on above: Performed By: #### V [id number], MG, CBC, BMP, TSH3 ####[facility] [id number] [place] [address] Thyroid Stimulating Hormoneo n 09-01-2023 TSH Qn 1.90 m[IU]/L Normal 0.45-5.33 [facility] Comment on above: Result Comment: PERF ORMED BY: [place] [address] PATHOLOGIST PC TECH BARBARA MUNOZ M.D. Performed By: #### V [id number], MG, CBC, BMP, TSH3 ####[address] Troponin I High Sensitivityo n 09-01-2023 Troponin I High Sensitivity 33.3 pg/mL High 0.0-15.0 [facility] Comment on above: Result Comment: PERF ORMED BY: [place] [address] PATHOLOGIST PC TECH BARBARA MUNOZ M.D. Performed By: #### H S TROP #### [address] Urine Cultureon 09-01-2023 Bacteria identified Cx Nom (U) 75,000 colonies/ml mixed bacterial skin contaminants 2 Days PERFORMED BY: [place] [address] PATHOLOGIST PC TECH BARBARA MUNOZ M.D. [facility] Comment on above: Performed By: #### C UU, ADDONUAPLUS #### [address] Vit. B12/Folate Profileon Cobalamin (Vitamin B12) [Mass/Vol] 465 pg/mL Normal 180-914 [facility] Comment on above: Performed By: #### V [id number], MG, CBC, BMP, TSH3 ####[address] Folate 41.0 ng/mL Normal >5.9 [facility] Comment on above: Result Comment: Danielle te reference range: >5.9 ng/ml The WHO technical consultation on folate and vitamin b12 deficiencies has determined that folate concentrations less than 4 ng/ml are considered deficient. Performed By: #### V [id number], MG, CBC, BMP, TSH3 ####[address] XR chest 2V*on 09-01-2023 XR chest 2V* [facility] [place] [address] [place] [address] XRay Report Signed Patient: Jesús Nolan MR#: [id number] 34 : 1935 Acct:[id number] Age/Sex: 88 / F ADM Date: 08/31/23 Loc: Room: [address] [place] [address] Type: ADM IN Attending Dr: Riky Bundy [...] Isabel Vega M.D.09/01/2023 6:23 AM Dictation Location: [place] [address] Transcribed By: [facility] 09/01/23622 Dictated By: Isabel Vega MD 09/01/23621 Signed By: 09/01/23622 Normal [facility] Alanine aminotransferase [En zymatic activity/volume] in Serum or PlasmaOrdered By: Destiny Irwin on 08-31-2023 ALT [Catalytic activity/Vol] 29 U/L 7-52 [facility] Albumin [Mass/volume] in Ser um or Plasma by Bromocresol green (BCG) dye binding methoOrdered By: Destiny Irwin on 08-31-2023 Albumin BCG dye [Mass/Vol] 4.7 g/dL 3.5-5.7 [facility] Alkaline phosphatase [Enzyma tic activity/volume] in Serum or PlasmaOrdered By: Destiny Irwin on 08-31-2023 ALP [Catalytic activity/Vol] 101 U/L 34-104 [facility] Aspartate aminotransferase [ Enzymatic activity/volume] in Serum or PlasmaOrdered By: Destiny Irwin on 08-31-2023 AST [Catalytic activity/Vol] 29 U/L 13-39 [facility] Automated erythrocytes count in urine sediment (number/area)Ordered By: Destiny Irwin on 08-31-2023 RBC Auto (Urine sed) [#/Area] 1-2 [HPF] 0-4 [facility] Automated leukocytes count i n urine sediment (number/area)Ordered By: Destiny Irwin on 08-31-2023 WBC Auto (Urine sed) [#/Area] 50-100 [HPF] 0-4 [facility] Basic Metabolic Panelon Anion gap [Moles/Vol] 16.9 mmol/L High 6.0-15.0 [facility] Comment on above: Performed By: #### B MP, HEPATIC, CBC, LIPASE ####[place] [id number] Calcium [Mass/Vol] 9.5 mg/dL Normal 8.6-10.3 [facility] Comment on above: Performed By: #### B MP, HEPATIC, CBC, LIPASE ####[place] [id number] [facility] Chloride [Moles/Vol] 103 mmol/L Normal 98-107 [facility] Comment on above: Performed By: #### B MP, HEPATIC, CBC, LIPASE ####[place] [id number] [facility] CO2 [Moles/Vol] 23.7 mmol/L Normal 21.0-31.0 [facility] Comment on above: Performed By: #### B MP, HEPATIC, CBC, LIPASE ####[place] [id number] [facility] Creatinine [Mass/Vol] 2.74 mg/dL High 0.60-1.20 [facility] Comment on above: Performed By: #### B MP, HEPATIC, CBC, LIPASE ####[place] [id number] [facility] Creatinine Clr Calc Pharmacy 12.25 [facility] Comment on above: Performed By: #### B MP, HEPATIC, CBC, LIPASE ####[place] [id number] [facility] GFR/1.73 sq M.predicted MDRD (S/P/Bld) [Vol rate/Area] 16.368 mL/min/{1.73_m2} Normal [facility] Comment on above: Performed By: #### B MP, HEPATIC, CBC, LIPASE ####[facility] Glucose [Mass/Vol] 132 mg/dL High 70-100 [facility] Comment on above: Result Comment: [facility] Glucose Reference Range is dependent on time and content of last meal. Glucose of more than 200 mg/dL in a nonstressed, ambulatory subject supports the diagnosis of Diabetes Mellitus. ADA recommended reference range Performed By: #### B MP, HEPATIC, CBC, LIPASE ####[place] [id number] [address] Potassium [Moles/Vol] 4.6 mmol/L Normal 3.5-5.1 [facility] Comment on above: Performed By: #### B MP, HEPATIC, CBC, LIPASE ####[address] Sodium [Moles/Vol] 139 mmol/L Normal 136-145 [facility] Comment on above: Performed By: #### B MP, HEPATIC, CBC, LIPASE ####[place] [id number] [address] Urea nitrogen [Mass/Vol] 30 mg/dL High 7-25 [facility] Comment on above: Performed By: #### B MP, HEPATIC, CBC, LIPASE ####[address] Basophils Auto (Bld) [#/Vol] Ordered By: Destiny Irwin on 08-31-2023 Basophils (Bld) [#/Vol] 0.1 10*3/uL 0.0-0.2 [facility] Basophils/100 WBC Auto (Bld) Ordered By: Destiny Irwin on 08-31-2023 Basophils/100 WBC (Bld) 0.6 % . [facility] Bilirubin Test strip Ql (U)O rdered By: Destiny Irwin on 08-31-2023 Bilirubin Ql (U) Negative Negative [facility] Bilirubin.direct [Mass/volum e] in Serum or PlasmaOrdered By: Destiny Irwin on 08-31-2023 Bilirubin.direct [Mass/Vol] 0.10 mg/dL 0.03-0.18 [facility] Bilirubin.total [Mass/volume ] in Serum or PlasmaOrdered By: Destiny Irwin on 08-31-2023 Bilirubin [Mass/Vol] 0.5 mg/dL 0.3-1.0 [facility] Calcium [Mass/volume] in Ser um or PlasmaOrdered By: Destiny Irwin on 08-31-2023 Calcium [Mass/Vol] 9.5 mg/dL 8.6-10.3 [facility] Carbon dioxide, total [Moles /volume] in Serum or PlasmaOrdered By: Destiny Irwin on 08-31-2023 CO2 [Moles/Vol] 23.7 mmol/L 21.0-31.0 [facility] Chloride [Moles/volume] in S shelley or PlasmaOrdered By: Destiny Irwin on 08-31-2023 Chloride [Moles/Vol] 103 mmol/L 98-107 [facility] Color Auto (U)Ordered By: Ashley Irwin on 08-31-2023 Color (U) Yellow Yellow [facility] Complete Blood Count Auto Di ffon 08-31-2023 Basophils (Bld) [#/Vol] 0.1 10*3/uL Normal 0.0-0.2 [facility] Comment on above: Result Comment: PERF ORMED BY: [facility] [address] [place] [address] PATHOLOGIST PC TECH BARBARA MUNOZ M.D. Performed By: #### B MP, HEPATIC, CBC, LIPASE ####[facility] [id number] [place] [id number] [facility] Basophils/100 WBC (Bld) 0.6 % Normal . [facility] Comment on above: Performed By: #### B MP, HEPATIC, CBC, LIPASE ####[facility] [place] [id number] [facility] Eosinophils (Bld) [#/Vol] 0.0 10*3/uL Normal 0.0-0.45 [facility] Comment on above: Performed By: #### B MP, HEPATIC, CBC, LIPASE ####[address] Eosinophils/100 WBC (Bld) 0.5 % Normal . [facility] Comment on above: Performed By: #### B MP, HEPATIC, CBC, LIPASE ####[address] Erythrocyte distribution width (RBC) [Ratio] 13.7 % Normal 11.9-15.3 [facility] Comment on above: Performed By: #### B MP, HEPATIC, CBC, LIPASE ####[address] Hematocrit (Bld) [Volume fraction] 40.5 % Normal 34.0-46.4 [facility] Comment on above: Performed By: #### B MP, HEPATIC, CBC, LIPASE ####[address] Hemoglobin (Bld) [Mass/Vol] 13.3 g/dL Normal 11.8-15.4 [facility] Comment on above: Performed By: #### B MP, HEPATIC, CBC, LIPASE ####[address] Lymphocytes (Bld) [#/Vol] 1.9 10*3/uL Normal 1.00-4.8 [facility] Comment on above: Performed By: #### B MP, HEPATIC, CBC, LIPASE ####[address] Lymphocytes/100 WBC (Bld) 20.5 % Normal . [facility] Comment on above: Performed By: #### B MP, HEPATIC, CBC, LIPASE ####[address] MCH (RBC) [Entitic mass] 31.5 pg Normal 24.7-34.3 [facility] Comment on above: Performed By: #### B MP, HEPATIC, CBC, LIPASE ####[place] [id number] MCV (RBC) [Entitic vol] 95.4 fL Normal 80-100 [facility] Comment on above: Performed By: #### B MP, HEPATIC, CBC, LIPASE ####[address] Mean Corpuscular HGB Conc 33.0 g/dL Normal 32.0-35.0 [facility] Comment on above: Performed By: #### B MP, HEPATIC, CBC, LIPASE ####[address] Monocytes (Bld) [#/Vol] 1.0 10*3/uL High 0.0-0.8 [facility] Comment on above: Performed By: #### B MP, HEPATIC, CBC, LIPASE ####[address] Monocytes/100 WBC (Bld) 18.57 % Normal 0.00-20.00 [facility] Comment on above: Performed By: #### B MP, HEPATIC, CBC, LIPASE ####[address] Monocytes/100 WBC (Bld) 10.6 % Normal . [facility] Comment on above: Performed By: #### B MP, HEPATIC, CBC, LIPASE ####[address] Neutrophils (Bld) [#/Vol] 6.4 10*3/uL Normal 1.8-7.7 [facility] Comment on above: Performed By: #### B MP, HEPATIC, CBC, LIPASE ####[address] Neutrophils/100 WBC (Bld) 67.8 % Normal . [facility] Comment on above: Performed By: #### B MP, HEPATIC, CBC, LIPASE ####[address] NRBC% 0.0 /100{WBC} Normal 0-0.5 [facility] Comment on above: Performed By: #### B MP, HEPATIC, CBC, LIPASE ####[address] Platelet mean volume (Bld) [Entitic vol] 8.4 fL Normal 6.3-10.7 [facility] Comment on above: Performed By: #### B MP, HEPATIC, CBC, LIPASE ####[address] Platelets (Bld) [#/Vol] 249 10*3/uL Normal 150-450 [facility] Comment on above: Performed By: #### B MP, HEPATIC, CBC, LIPASE ####[address] RBC (Bld) [#/Vol] 4.24 10*6/uL Normal 3.60-5.00 [facility] Comment on above: Performed By: #### B MP, HEPATIC, CBC, LIPASE ####[address] WBC (Bld) [#/Vol] 9.4 10*3/uL Normal 3.8-11.6 [facility] Comment on above: Performed By: #### B MP, HEPATIC, CBC, LIPASE ####[address] Creatinine [Mass/volume] in Serum or PlasmaOrdered By: Destiny Irwin on 08-31-2023 Creatinine [Mass/Vol] 2.74 mg/dL 0.60-1.20 [facility] D-Dimer High Sensitivityon 1 11-01-2022 D-Dimer High Sensitivity < 200 Normal 0-243 [facility] Comment on above: Result Comment: The [...] coagulation studies. Please contact the laboratory at [phone] for redraw instructions. PERFORMED BY: [place] [address] PATHOLOG[address] PC TECH BARBARA MUNOZ M.D. Performed By: #### D DIMER #### [address] ECG 12 lead ECGon 08-31-2023 ECG 12 lead ECG [facility] [place] [address] [place] [address] Electrocardiograph Report Signed Patient: Jesús Nolan MR#: [id number] 34 : 1935 Acct:[id number] Age/Sex: 88 / F ADM Date: 08/31/23 Loc: Room: [address] [place] [address] Type: ADM IN Attending Dr: Riky Bundy [...] anterior infarct Confirmed by Michael Marx DO ([id number]) on 09/01/2023 6:18:58 AM Referred By: Electronically Signed By:Michael Marx DO Transcribed By: MUS Signed By Michael Marx DO [id number] Normal [facility] Eosinophils Auto (Bld) [#/Vo l]Ordered By: Destiny Irwin on 08-31-2023 Eosinophils (Bld) [#/Vol] 0.0 10*3/uL 0.0-0.45 [facility] Eosinophils/100 WBC Auto (Bl d)Ordered By: Destiny Irwin on 08-31-2023 Eosinophils/100 WBC (Bld) 0.5 % . [facility] Erythrocyte distribution wid th Auto (RBC) [Ratio]Ordered By: Destiny Irwin on 08-31-2023 Erythrocyte distribution width (RBC) [Ratio] 13.7 % 11.9-15.3 [facility] Fibrin D-dimer [Presence] in Platelet poor plasma by Latex agglutinationOrdered By: Destiny Irwin on 08-31-2023 Fibrin D-dimer LA Ql (PPP) < 200 ng/mL 0-243 [facility] Comment on above: The reference range [...] coagulation studies. Please contact the laboratory at [phone] for redraw instructions. Globulin Calc (S) [Mass/Vol] Ordered By: Destiny Irwin on 08-31-2023 Globulin (S) [Mass/Vol] 3.3 g/dL [facility] Glucose [Mass/volume] in Ser um or PlasmaOrdered By: Destiny Irwin on 08-31-2023 Glucose [Mass/Vol] 132 mg/dL 70-100 [facility] Comment on above: ADA recommended refe rence rangeRandom Glucose Reference Range is dependent on time and content of last meal. Glucose of more than 200 mg/dL in a nonstressed, ambulatory subject supports the diagnosis of Diabetes Mellitus. Hematocrit Auto (Bld) [Volum e fraction]Ordered By: Destiny Irwin on 08-31-2023 Hematocrit (Bld) [Volume fraction] 40.5 % 34.0-46.4 [facility] Hemoglobin [Mass/volume] in BloodOrdered By: Destiny Irwin on 08-31-2023 Hemoglobin (Bld) [Mass/Vol] 13.3 g/dL 11.8-15.4 [facility] Hepatic Panelon 08-31-2023 Albumin [Mass/Vol] 4.7 g/dL Normal 3.5-5.7 [facility] Comment on above: Performed By: #### B MP, HEPATIC, CBC, LIPASE ####[place] [id number] [place] [address] [facility] Albumin/Globulin [Mass ratio] 1.4 {ratio} Normal [facility] Comment on above: Performed By: #### B MP, HEPATIC, CBC, LIPASE ####[place] [address] [place] [address] [facility] ALP [Catalytic activity/Vol] 101 U/L Normal 34-104 [facility] Comment on above: Performed By: #### B MP, HEPATIC, CBC, LIPASE ####[place] [address] [place] [address] [facility] ALT [Catalytic activity/Vol] 29 U/L Normal 7-52 [facility] Comment on above: Performed By: #### B MP, HEPATIC, CBC, LIPASE ####[place] [address] [place] [address] [facility] AST [Catalytic activity/Vol] 29 U/L Normal 13-39 [facility] Comment on above: Performed By: #### B MP, HEPATIC, CBC, LIPASE ####[place] [address] [place] [address] [facility] Bilirubin [Mass/Vol] 0.5 mg/dL Normal 0.3-1.0 [facility] Comment on above: Performed By: #### B MP, HEPATIC, CBC, LIPASE ####[place] [address] [place] [address] [facility] Bilirubin,Indirect 0.4 mg/dL Normal [facility] Comment on above: Performed By: #### B MP, HEPATIC, CBC, LIPASE ####[facility] [place] [address] [facility] Bilirubin.indirect [Mass/Vol] 0.10 mg/dL Normal 0.03-0.18 [facility] Comment on above: Performed By: #### B MP, HEPATIC, CBC, LIPASE ####[place] [address] [place] [address] [facility] Globulin (S) [Mass/Vol] 3.3 g/dL Normal [facility] Comment on above: Performed By: #### B MP, HEPATIC, CBC, LIPASE ####[place] [address] [place] [address] [facility] Protein [Mass/Vol] 8.0 g/dL Normal 6.4-8.9 [facility] Comment on above: Performed By: #### B MP, HEPATIC, CBC, LIPASE ####[place] [id number] [place] [id number] [facility] Ketones Auto test strip (U) [Mass/Vol]Ordered By: Destiny Irwin on 08-31-2023 Ketones (U) [Mass/Vol] Negative Negative [facility] Leukocytes [#/volume] correc tavia for nucleated erythrocytes in Blood by Automated counOrdered By: Destiny Irwin on 08-31-2023 WBC corrected for nucl RBC Auto (Bld) [#/Vol] 9.4 10*3/uL 3.8-11.6 [facility] Lipaseon 08-31-2023 Lipase [Catalytic activity/Vol] 33.0 U/L Normal 11.0-82.0 [facility] Comment on above: Result Comment: PERF ORMED BY: [facility] [address] [place] [id number] PATHOLOGIST PC TECH BARBARA MUNOZ M.D. Performed By: #### B MP, HEPATIC, CBC, LIPASE ####[place] [id number] [place] [id number] [facility] Lipase [Enzymatic activity/v olume] in Serum or PlasmaOrdered By: Destiny Irwin on 08-31-2023 Lipase [Catalytic activity/Vol] 33.0 U/L 11.0-82.0 [facility] Lymphocytes Auto (Bld) [#/Vo l]Ordered By: Destiny Irwin on 08-31-2023 Lymphocytes (Bld) [#/Vol] 1.9 10*3/uL 1.00-4.8 [facility] Lymphocytes/100 WBC Auto (Bl d)Ordered By: Destiny Irwin on 08-31-2023 Lymphocytes/100 WBC (Bld) 20.5 % . [facility] MCH Auto (RBC) [Entitic mass ]Ordered By: Destiny Irwin on 08-31-2023 MCH (RBC) [Entitic mass] 31.5 pg 24.7-34.3 [facility] MCHC Auto (RBC) [Mass/Vol]Or dered By: Destiny Irwin on 08-31-2023 MCHC (RBC) [Mass/Vol] 33.0 g/dL 32.0-35.0 [facility] MCV Auto (RBC) [Entitic vol] Ordered By: Destiny Irwin on 08-31-2023 MCV (RBC) [Entitic vol] 95.4 fL 80-100 [facility] Monocyte distribution width [Entitic volume] in Blood by AutomatedOrdered By: Destiny Irwin on 08-31-2023 Monocyte distribution width Auto (Bld) [Entitic vol] 18.57 % 0.00-20.00 [facility] Monocytes Auto (Bld) [#/Vol] Ordered By: Destiny Irwin on 08-31-2023 Monocytes (Bld) [#/Vol] 1.0 10*3/uL 0.0-0.8 [facility] Monocytes/100 WBC Auto (Bld) Ordered By: Destiny Irwin on 08-31-2023 Monocytes/100 WBC (Bld) 10.6 % . [facility] Neutrophils Auto (Bld) [#/Vo l]Ordered By: Destiny Irwin on 08-31-2023 Neutrophils (Bld) [#/Vol] 6.4 10*3/uL 1.8-7.7 [facility] Neutrophils/100 WBC Auto (Bl d)Ordered By: Destiny Irwin on 08-31-2023 Neutrophils/100 WBC (Bld) 67.8 % . [facility] Nitrite Test strip Ql (U)Ord ered By: Destiny Irwin on 08-31-2023 Nitrite Ql (U) Negative Negative [facility] No Panel InformationOrdered By: Destiny Irwin on 08-31-2023 Estimated GFR (CKD-EPI) 16.368 mL/Min [facility] Creatinine Clearance (Chem 12.25 [facility] Nucleated erythrocytes [Pres ence] in Blood by Automated countOrdered By: Destiny Irwin on 08-31-2023 Nucleated RBC Auto Ql (Bld) 0.0 /100{WBC} 0-0.5 [facility] Platelet mean volume Auto (B ld) [Entitic vol]Ordered By: Destiny Irwin on 08-31-2023 Platelet mean volume (Bld) [Entitic vol] 8.4 fL 6.3-10.7 [facility] Platelets Auto (Bld) [#/Vol] Ordered By: Destiny Irwin on 08-31-2023 Platelets (Bld) [#/Vol] 249 10*3/uL 150-450 [facility] Potassium [Moles/volume] in Serum or PlasmaOrdered By: Destiny Irwin on 08-31-2023 Potassium [Moles/Vol] 4.6 mmol/L 3.5-5.1 [facility] Protein Auto test strip (U) [Mass/Vol]Ordered By: Destiny Irwin on 08-31-2023 Protein (U) [Mass/Vol] 30 mg/dL Negative [facility] Protein [Mass/volume] in Ser um or PlasmaOrdered By: Destiny Irwin on 08-31-2023 Protein [Mass/Vol] 8.0 g/dL 6.4-8.9 [facility] RBC Auto (Bld) [#/Vol]Ordere d By: Destiny Irwin on 08-31-2023 RBC (Bld) [#/Vol] 4.24 10*6/uL 3.60-5.00 [facility] Serum or plasma albumin/glob ulin mass ratioOrdered By: Destiny Irwin on 08-31-2023 Albumin/Globulin [Mass ratio] 1.4 {ratio} [facility] Serum or plasma anion gap de terminationOrdered By: Destiny Irwin on 08-31-2023 Anion gap [Moles/Vol] 16.9 mmol/L 6.0-15.0 [facility] Serum or plasma non-glucuron idated bilirubin measurement (mass/volume)Ordered By: Destiny Irwin on 08-31-2023 Bilirubin.indirect [Mass/Vol] 0.4 mg/dL [facility] Sodium [Moles/volume] in Ser um or PlasmaOrdered By: Destiny Irwin on 08-31-2023 Sodium [Moles/Vol] 139 mmol/L 136-145 [facility] Specific gravity Auto test s trip (U) [Rel density]Ordered By: Destiny Irwin on 08-31-2023 Specific gravity (U) [Rel density] 1.016 1.001-1.030 [facility] Squamous epithelial cells de tection in urine sediment by light microscopyOrdered By: Destiny Irwin on 08-31-2023 Epithelial cells.squamous LM Ql (Urine sed) 3-4 [HPF] 0-2 [facility] Troponin I High Sensitivityo n 08-31-2023 Troponin I High Sensitivity 18.1 pg/mL High 0.0-15.0 [facility] Comment on above: Result Comment: PERF ORMED BY: [facility] [address] [place] [address] PATHOLOG[address] PC TECH BARBARA MUNOZ M.D. Performed By: #### H S TROP ####[facility] [id number] Troponin I.cardiac [Mass/vol ume] in Serum or Plasma by Detection limit <= 0.01 ng/Ordered By: Destiny Irwin on 08-31-2023 Troponin I.cardiac DL <= 0.01 ng/mL [Mass/Vol] 18.1 pg/mL 0.0-15.0 [facility] Urea nitrogen [Mass/volume] in Serum or PlasmaOrdered By: Destiny Irwin on 08-31-2023 Urea nitrogen [Mass/Vol] 30 mg/dL 7-25 [facility] Urine bacteria detection by automated methodOrdered By: Destiny Irwin on 08-31-2023 Bacteria Auto Ql (U) None seen None Seen [facility] Urine clarity by refractomet ry automatedOrdered By: Destiny Irwin on 08-31-2023 Clarity Refractometry automated (U) Cloudy Clear [facility] Urine glucose measurement by automated test strip (mass/volume)Ordered By: Destiny Irwin on 08-31-2023 Glucose Auto test strip (U) [Mass/Vol] Normal mg/dL Normal [facility] Urine hemoglobin detection b y automated test stripOrdered By: Destiny Irwin on 08-31-2023 Hemoglobin Auto test strip Ql (U) Trace Negative [facility] Urine leukocyte esterase det ection by automated test stripOrdered By: Destiny Irwin on 08-31-2023 Leukocyte esterase Auto test strip Ql (U) 4+ Negative [facility] Urobilinogen Auto test strip (U) [Mass/Vol]Ordered By: Destiny Irwin on 08-31-2023 Urobilinogen (U) [Mass/Vol] Normal mg/dL Normal [facility] WBC Auto (Bld) [#/Vol]Ordere d By: Destiny Irwin on 08-31-2023 WBC (Bld) [#/Vol] 9.4 10*3/uL 3.8-11.6 [facility] pH Auto test strip (U)Ordere d By: Destiny Irwin on 08-31-2023 pH (U) 6.0 [pH] 5.0-9.0 [facility] Insurance Correspondence Off iceon 08-27-2023 Insurance Correspondence Office [id number] [id number] 0TIFF Normal [facility] CBC AUTO DIFFon 04-12-2021 BASO # 0.0 103/ul Normal 0.0-0.1 [facility] Comment on above: Performed By: #### C BC #### [facility] [address] [place], [place] [address] Chel[place] Hall Basophils/100 WBC (Bld) 0.3 % Normal 0.2-2.0 [facility] Comment on above: Performed By: #### C BC #### [facility] [address] [place], [place] [address] Chelseyfeliberto Hall EO # 0.1 103/ul Normal 0.0-0.7 [facility] Comment on above: Performed By: #### C BC #### [facility] [address] [place], [place] [id number] Chelsey Isabel Eosinophils/100 WBC (Bld) 2.1 % Normal 0.9-7.0 [facility] Comment on above: Performed By: #### C BC #### [facility] [address] [place] [address] Chelsey Isabel Erythrocyte distribution width (RBC) [Ratio] 13.7 % Normal 11.0-15.0 [facility] Comment on above: Performed By: #### C BC #### [facility] [address] [place] [address] Chelsey Isabel Hematocrit (Bld) [Volume fraction] 39.6 % Normal 36.0-48.0 [facility] Comment on above: Performed By: #### C BC #### [facility] [address] [place] [address] Chelsey Isabel Hemoglobin (Bld) [Mass/Vol] 12.9 g/dL Normal 12.0-16.0 [facility] Comment on above: Performed By: #### C BC #### [facility] [address] [place] [address] Chelsey Isabel IG # 0.01 10e3/ul Normal 0.00-0.03 [facility] Comment on above: Performed By: #### C BC #### [facility] [address] [place] [address] Chelsey Isabel IG % 0.2 % Normal 0.0-0.5 [facility] Comment on above: Performed By: #### C BC #### [facility] [address] [place] [address] Chelsey Isabel LYMPH # 2.2 103/ul Normal 1.2-3.8 [facility] Comment on above: Performed By: #### C BC #### [facility] [address] [place] [address] Chelsey Isabel Lymphocytes/100 WBC (Bld) 35.3 % Normal 20.5-60.0 [facility] Comment on above: Performed By: #### C BC #### [facility] [address] [place], [place] [id number] Chelseyfeliberto Hall MANUAL DIFF REQ NO Normal [facility] Comment on above: Performed By: #### C BC #### [facility] [address] [place], [place] [id number] Chelseyfeliberto Hall MCH (RBC) [Entitic mass] 31.1 pg Normal 26.7-34.0 [facility] Comment on above: Performed By: #### C BC #### [facility] [address] [place], [place] [id number] Chelsey Hall MCHC (RBC) [Mass/Vol] 32.6 g/dL Normal 29.9-35.2 [facility] Comment on above: Performed By: #### C BC #### [facility] [address] [place] [address] Chelseyfeliberto Hall MCV (RBC) [Entitic vol] 95.4 fL Normal 81.0-99.0 [facility] Comment on above: Performed By: #### C BC #### [facility] [address] [place] [address] Chelsey Isabel MONO # 0.7 103/ul Normal 0.3-0.8 [facility] Comment on above: Performed By: #### C BC #### [facility] [address] [place], [place] [id number] Chelsey Hall Monocytes/100 WBC (Bld) 12.1 % Critically high 1.7-12. 0 [facility] Comment on above: Performed By: #### C BC #### [facility] [address] [place] [address] Chelsey Isabel NEUT # 3.1 103/ul Normal 1.4-6.5 [facility] Comment on above: Performed By: #### C BC #### [facility] [address] [place], [place] [id number] Chelsey Isabel Neutrophils/100 WBC (Bld) 50.0 % Normal 43.0-75.0 [facility] Comment on above: Performed By: #### C BC #### [facility] [address] [place] [address] Chelsey Isabel Platelet mean volume (Bld) [Entitic vol] 10.2 fL Normal 9.5-13.5 [facility] Comment on above: Performed By: #### C BC #### [facility] [address] [place] [address] Chelsey Isabel PLT 212 103/ul Normal 150-450 [facility] Comment on above: Performed By: #### C BC #### [facility] [address] [place] [address] Chelsey Isabel RBC 4.15 106/ul Critically low 4.20-5.40 [facility] Comment on above: Performed By: #### C BC #### [facility] [address] [place] [address] Chelsey Isabel WBC 6.1 103/ul Normal 4.0-11.0 [facility] Comment on above: Performed By: #### C BC #### [facility] [address] [place] [address] Chelsey Isabel RENAL FUNCTION PANELon 04-12 Albumin [Mass/Vol] 3.4 g/dL Critically low 3.5-5.0 [facility] Comment on above: Performed By: #### R ENAL #### [facility] [address] [place] [address] Chelsey Isabel Calcium [Mass/Vol] 8.9 mg/dL Normal 8.4-10.2 [facility] Comment on above: Performed By: #### R ENAL #### [facility] [address] [place] [address] Chelsey Isabel Chloride [Moles/Vol] 106 mmol/L Normal 98-107 [facility] Comment on above: Performed By: #### R ENAL #### [facility] [address] [place] [address] Chelsey Isabel CO2 [Moles/Vol] 29.4 mmol/L Normal 22.0-30.0 [facility] Comment on above: Performed By: #### R ENAL #### [facility] [address] [place] [address] Chelsey Isabel Creatinine [Mass/Vol] 1.49 mg/dL Critically high 0.52-1.04 [facility] Comment on above: Performed By: #### R ENAL #### [facility] [address] [place] [id number] Chelsey Isabel EGFR-AF AFGHAN 41 mL/min/1.73m2 Critically low >=60 [facility] Comment on above: Performed By: #### R ENAL #### [facility] [address] [place] [address] Chelsey Isabel EGFR-NON AF AFGHAN 33 mL/min/1.73m2 Critically low >=60 [facility] Comment on above: Performed By: #### R ENAL #### [facility] [address] [place] [address] Chelsey Isabel Glucose [Mass/Vol] 138 mg/dL Critically high 74-106 [facility] Comment on above: Performed By: #### R ENAL #### [facility] [address] [place] [address] Chelsey Isabel Phosphate [Mass/Vol] 4.3 mg/dL Normal 2.5-4.5 [facility] Comment on above: Performed By: #### R ENAL #### [facility] [address] [place] [address] Chelsey Isabel Potassium [Moles/Vol] 3.2 mmol/L Critically low 3.4-5.0 [facility] Comment on above: Performed By: #### R ENAL #### [facility] [address] [place] [address] Chelsey Isabel Sodium [Moles/Vol] 144 mmol/L Normal 137-145 [facility] Comment on above: Performed By: #### R ENAL #### [facility] [address] [place], [place] [id number] Chelsey Isabel Urea nitrogen [Mass/Vol] 28.0 mg/dL Critically high 7.0-17.0 [facility] Comment on above: Performed By: #### R ENAL #### [facility] [address] [place], [place] [id number] Chelsey Isabel UA RANDOMon 04-12-2021 Bilirubin Ql (U) Negative Normal NEGATIVE [facility] Comment on above: Performed By: #### U A #### [facility] [address] [place] [address] Chelsey Isabel Clarity (U) CLOUDY Abnormal CLEAR [facility] Comment on above: Performed By: #### U A #### [facility] [address] [place] [address] Chelsey Isabel Color (U) LT. YELLOW Normal YELLOW [facility] Comment on above: Performed By: #### U A #### [facility] [address] [place] [address] Chelsey Isabel Glucose Ql (U) Negative Normal NEGATIVE [facility] Comment on above: Performed By: #### U A #### [facility] [address] [place] [address] Chelsey Isabel Hemoglobin Ql (U) LARGE Abnormal NEGATIVE [facility] Comment on above: Performed By: #### U A #### [facility] [address] [place] [address] Chelsey Isabel Ketones Ql (U) Negative Normal NEGATIVE [facility] Comment on above: Performed By: #### U A #### [facility] [address] [place] [address] Chelsey Isabel LEUKOCYTES LARGE Abnormal NEGATIVE [facility] Comment on above: Performed By: #### U A #### [facility] [address] [place] [address] Chelsey Isabel Nitrite Ql (U) Negative Normal NEGATIVE [facility] Comment on above: Performed By: #### U A #### [facility] [address] [place] [address] Chelsey Isabel pH (U) 6.5 [pH] Normal 5-9 [facility] Comment on above: Performed By: #### U A #### [facility] [address] [place] [address] Chelsey Isabel SPEC GRAVITY 1.015 Normal 1.005-<=1.02 5 [facility] Comment on above: Performed By: #### U A #### [facility] [address] [place], [place] [address] Chelsey Hall UA PROTEIN 30 mg/dl Abnormal NEGATIVE/ TRACE [facility] Comment on above: Performed By: #### U A #### [facility] [address] [place], [place] [address] Chelsey Hall Urobilinogen Qn (U) 0.2 {Gerard'U}/dL Normal 0.2 - 1. 0 [facility] Comment on above: Performed By: #### U A #### [facility] [address] [place], [place] [address] Chelsey Hall C-Reactive Proteinon 021 CRP [Mass/Vol] 7.9 mg/L High 0.0-5.0 [facility] Comment on above: Performed By: #### C DP #### [facility] [address] [place] [address] [place] [address] Sensitized Paper Tester: Loi Irene MD #### CRP #### [place] [address] [place], [place] [id number] Sensitized Paper Tester: Dg Aparicio MD CRP [Mass/Vol] 7.9 mg/L High 0.0 - 5.0 mg/L [facility] [employer] Phone: Interpretation and review of laboratory results Abnormal [employer] [facility] [employer] Phone: PTH, Intacton 12-06-2020 PTH, Intact 39.87 pg/mL Normal 15.0-65.0 [facility] Comment on above: Result Comment: SAMP LES FROM PATIENTS ROUTINELY RECEIVING HIGH DOSE BIOTIN THERAPY MAY SHOW FALSELY DEPRESSED RESULTS. ADDITIONAL INFORMATION MAY BE REQUIRED FOR DIAGNOSIS. Performed By: #### ARMANDO Warren URI #### [facility] [address] [place] [address] Sensitized Paper Tester: Loi Irene MD #### PTHNCA #### [facility] [address] [place], [place] [id number] Sensitized Paper Tester: Dg Aparicio MD Pth Intact 39.87 pg/mL 15.0 - 65.0 pg/mL [employer] Phone: Comment on above: SAMPLES FROM PATIENT S ROUTINELY RECEIVING HIGH DOSE BIOTIN THERAPY MAY SHOW FALSELY DEPRESSED RESULTS. ADDITIONAL INFORMATION MAY BE REQUIRED FOR DIAGNOSIS. CBC Auto Differentialon 11-25 Basophils (Bld) [#/Vol] 10*3/uL [facility] Phone: Basophils/100 WBC (Bld) 0 % 0 - 2 % [facility] Phone: Differential Type NOT REPORTED [employer] Phone: Eosinophils (Bld) [#/Vol] 0.16 10*3/uL [employer] Phone: Eosinophils/100 WBC (Bld) 3 % 1 - 4 % [employer] Phone: Erythrocyte distribution width (RBC) [Ratio] 15.3 % High 11.8 - 14.4 % [employer] Phone: Hematocrit (Bld) [Volume fraction] 38.3 % 36.3 - 47.1 % [employer] Phone: Hemoglobin (Bld) [Mass/Vol] 11.9 g/dL 11.9 - 15.1 g/dL [employer] Phone: Immature granulocytes (Bld) [#/Vol] 10*3/uL [employer] Phone: Immature granulocytes (Bld) [#/Vol] 0 % 0 [employer] Phone: Interpretation and review of laboratory results Abnormal [employer] Phone: Lymphocytes (Bld) [#/Vol] 1.68 10*3/uL [employer] Phone: Lymphocytes/100 WBC (Bld) 32 % 24 - 43 % [employer] Phone: MCH (RBC) [Entitic mass] 31.2 pg 25.2 - 33.5 pg [employer] Phone: MCHC (RBC) [Mass/Vol] 31.1 g/dL 28.4 - 34.8 g/dL [employer] Phone: MCV (RBC) [Entitic vol] 100.3 fL 82.6 - 102.9 fL [employer] Phone: Monocytes (Bld) [#/Vol] 0.67 10*3/uL [employer] Phone: Monocytes/100 WBC (Bld) 13 % High 3 - 12 % [facility] Phone: Platelet mean volume (Bld) [Entitic vol] 10.2 fL 8.1 - 13.5 fL [employer] Phone: Platelets (Bld) [#/Vol] 238 10*3/uL [employer] Phone: Platelets (Bld) [#/Vol] NOT REPORTED [employer] Phone: RBC (Bld) [#/Vol] 3.82 10*6/uL Low 3.95 - 5.1 1 m/uL [employer] Phone: [phone] RBC morphology finding Nom (Bld) NOT REPORTED [employer] Phone: Segmented neutrophils/100 WBC (Bld) 52 % 36 - 65 % [employer] Phone: Segs Absolute 2.75 [employer] Phone: WBC (Bld) [#/Vol] 5.3 10*3/uL [employer] Phone: WBC (Bld) [#/Vol] 0.0 10*3/uL 0.0 per 10 0 WBC [employer] Phone: WBC Morphology NOT REPORTED [employer] Phone: CBC with Diffon 12-05-2020 Abs. Basophil <0.03 Normal 0.00-0.20 [facility] Comment on above: Performed By: #### C DP #### [facility] [address] [place] [address] [place] [address] Sensitized Paper Tester: Loi Irene MD #### CRP #### [address] [address] Sensitized Paper Tester: Dg Aparicio MD Abs.Imm.Granulocyte <0.03 Normal 0.00-0.30 [facility] Comment on above: Performed By: #### C DP #### [address] [place] [address] Sensitized Paper Tester: Loi Irene MD #### CRP #### [place] [address] Sensitized Paper Tester: Dg Aparicio MD Abs.Neutrophil (Seg) 2.75 k/uL Normal 1.50-8.10 [facility] Comment on above: Performed By: #### C DP #### [address] [place] [id number] ( Sensitized Paper Tester: Loi Irene MD #### CRP #### [place] [address] Sensitized Paper Tester: Dg Aparicio MD Basophils/100 WBC (Bld) 0 % Normal 0-[address] [facility] Comment on above: Performed By: #### C DP #### [address] [place] [address] Sensitized Paper Tester: Loi Irene MD #### CRP #### [address] [address] Sensitized Paper Tester: Dg Aparicio MD Eosinophils (Bld) [#/Vol] 0.16 10*3/uL Normal 0.00-0.44 [facility] Comment on above: Performed By: #### C DP #### [facility] [address] [place], [place] [id number] Sensitized Paper Tester: Loi Irene MD #### CRP #### [address] [id number] Sensitized Paper Tester: Dg Aparicio MD Eosinophils/100 WBC (Bld) 3 % Normal 1-4 [facility] Comment on above: Performed By: #### C DP #### [facility] [address] [place] [id number] Sensitized Paper Tester: Loi Irene MD #### CRP #### [address] [id number] Sensitized Paper Tester: Dg Aparicio MD Erythrocyte distribution width (RBC) [Ratio] 15.3 % High 11.8-14.4 [facility] Comment on above: Performed By: #### C DP #### [address] Laurent, [facility] Sensitized Paper Tester: Loi Irene MD #### CRP #### [address] [address] Sensitized Paper Tester: Dg Aparicio MD Hematocrit (Bld) [Volume fraction] 38.3 % Normal 36.3-47.1 [facility] Comment on above: Performed By: #### C DP #### [facility] [address] [place] [address] Dr. [place] [id number] Sensitized Paper Tester: Loi Irene MD #### CRP #### [address] [address] Sensitized Paper Tester: Dg Aparicio MD Hemoglobin (Bld) [Mass/Vol] 11.9 g/dL Normal 11.9-15.1 [facility] Comment on above: Performed By: #### C DP #### [facility] [address] [place] [address] Sensitized Paper Tester: Loi Irene MD #### CRP #### [address] [address] Sensitized Paper Tester: Dg Aparicio MD Immature granulocytes/100 WBC (Bld) 0 % Normal 0 [facility] Comment on above: Performed By: #### C DP #### [facility] [address] [place] [id number] Sensitized Paper Tester: Loi Irene MD #### CRP #### [address] [address] Sensitized Paper Tester: Dg Aparicio MD Lymphocytes (Bld) [#/Vol] 1.68 10*3/uL Normal 1.10-3.70 [facility] Comment on above: Performed By: #### C DP #### [facility] [address] [place] [address] Dr. [place] [id number] Sensitized Paper Tester: Loi Irene MD #### CRP #### [address] [address] Sensitized Paper Tester: Dg Aparicio MD Lymphocytes/100 WBC (Bld) 32 % Normal 24-43 [facility] Comment on above: Performed By: #### C DP #### [address] [place] [id number] Sensitized Paper Tester: Loi Irene MD #### CRP #### [address] [address] Sensitized Paper Tester: Dg Aparicio MD MCH (RBC) [Entitic mass] 31.2 pg Normal 25.2-33.5 [facility] Comment on above: Performed By: #### C DP #### [facility] [address] [place] [address] Dr. [place] [id number] Sensitized Paper Tester: Loi Irene MD #### CRP #### [address] [id number] Sensitized Paper Tester: Dg Aparicio MD MCHC (RBC) [Mass/Vol] 31.1 g/dL Normal 28.4-34.8 [facility] Comment on above: Performed By: #### C DP #### [facility] [address] [place] [address] Dr. [place] [id number] ( Sensitized Paper Tester: Loi Irene MD #### CRP #### [address] [address] Sensitized Paper Tester: Dg Aparicio MD MCV (RBC) [Entitic vol] 100.3 fL Normal 82.6-102.9 [facility] Comment on above: Performed By: #### C DP #### [address] [place] [address] Sensitized Paper Tester: Loi Irene MD #### CRP #### [place] [address] Sensitized Paper Tester: Dg Aparicio MD Monocytes (Bld) [#/Vol] 0.67 10*3/uL Normal 0.10-1.20 [facility] Comment on above: Performed By: #### C DP #### [address] [place] [id number] ( Sensitized Paper Tester: Loi Irene MD #### CRP #### [place] [address] Sensitized Paper Tester: Dg Aparicio MD Monocytes/100 WBC (Bld) 13 % High 3-12 [facility] Comment on above: Performed By: #### C DP #### [address] [place] [address] Sensitized Paper Tester: Loi Irene MD #### CRP #### [address] [place] [address] Sensitized Paper Tester: Dg Aparicio MD Neutrophil (Seg) 52 % Normal 36-65 [facility] Comment on above: Performed By: #### C DP #### [facility] [address] [place] [address] Dr. [place], [place] [id number] Sensitized Paper Tester: Loi Irene MD #### CRP #### [address] [address] Sensitized Paper Tester: Dg Aparicio MD NRBC Automated 0.0 per [address] [facility] Comment on above: Performed By: #### C DP #### [address] [place] [address] Sensitized Paper Tester: Loi Irene MD #### CRP #### [address] [address] Sensitized Paper Tester: Dg Aparicio MD Platelet mean volume (Bld) [Entitic vol] 10.2 fL Normal 8.1-13.5 [facility] Comment on above: Performed By: #### C DP #### [address] [place] [address] Sensitized Paper Tester: Loi Irene MD #### CRP #### [address] [address] Sensitized Paper Tester: Dg Aparicio MD Platelets (Bld) [#/Vol] 238 10*3/uL Normal 138-453 [facility] Comment on above: Performed By: #### C DP #### [facility] [address] [place] [address] Dr. [place], [place] [id number] (197 Sensitized Paper Tester: Loi Irene MD #### CRP #### [address] [address] Sensitized Paper Tester: Dg Aparicio MD RBC (Bld) [#/Vol] 3.82 10*6/uL Low 3.95-5.11 [facility] Comment on above: Performed By: #### C DP #### [facility] [address] [place] [address] [place] [address] Sensitized Paper Tester: Loi Irene MD #### CRP #### [address] [address] Sensitized Paper Tester: Dg Aparicio MD WBC (Bld) [#/Vol] 5.3 10*3/uL Normal 3.5-11.3 [facility] Comment on above: Performed By: #### C DP #### [address] [place] [address] Sensitized Paper Tester: Loi Irene MD #### CRP #### [address] [address] Sensitized Paper Tester: Dg Aparicio MD Auto Diff Performed NOT REPORTED Normal [facility] Comment on above: Performed By: #### C DP #### [address] [place] [address] Sensitized Paper Tester: Loi Irene MD #### CRP #### [address] [address] Sensitized Paper Tester: Dg Aparicio MD Platelet Estimate NOT REPORTED Normal [facility] Comment on above: Performed By: #### C DP #### [facility] [address] [place] [address] [place] [address] Sensitized Paper Tester: Loi Irene MD #### CRP #### [address] [address] Sensitized Paper Tester: Dg Aparicio MD RBC morphology finding Nom (Bld) NOT REPORTED Normal [facility] Comment on above: Performed By: #### C DP #### [address] [place] [address] Sensitized Paper Tester: Loi Irene MD #### CRP #### [facility] [address] [place], [place] [id number] Sensitized Paper Tester: Dg Aapricio MD WBC Morphology NOT REPORTED Normal [facility] Comment on above: Performed By: #### C DP #### [facility] [address] [place], [place] [id number] Sensitized Paper Tester: Loi Irene MD #### CRP #### [facility] [address] [place] [address] Sensitized Paper Tester: Dg Aparicio MD Magnesiumon 5 Magnesium [Mass/Vol] 2.2 mg/dL Normal 1.6-2.6 [facility] Comment on above: Performed By: #### M Lorin, FROYP, URI #### [facility] [address] [place] [address] Sensitized Paper Tester: Loi Irene MD #### PTHNCA #### [facility] [address] [place] [address] Sensitized Paper Tester: Dg Aparicio MD Magnesium [Mass/Vol] 2.2 mg/dL 1.6 - 2 .6 mg/dL [facility] [employer] Phone: Metabolic Panelon 12-05-2020 GFR/1.73 sq M predicted among non-blacks MDRD (S/P/Bld) [Vol rate/Area] [facility] Work Phone: Comment on above: Average GFR for 70 o r more years old: 75 mL/min/1.73sq m Chronic Kidney Disease: <60 mL/min/1.73sq m Kidney failure: <15 mL/min/1.73sq m eGFR calculated using average adult body mass. Additional eGFR calculator available at: http://www.[employer]/multiple_crcl_2012.htm Stage 1: Some kidney damage normal GFR Stage 2: Mild kidney damage GFR 60-89 Stage 3: Moderate kidney damage GFR 30-59 Stage 4: Severe kidney damage GFR 15-29 Stage 5: Severe kidney damage GFR <15 ESRD - chronic treatment by dialysis or transplant Otheron 12-05-2020 Interpretation and review of laboratory results Abnormal [facility] Work Phone: Renal Function Panelon 12-05 (cont.) Normal [facility] Comment on above: Result Comment: Aver age GFR for 70 or more years old: 75 mL/min/1.73sq m Chronic Kidney Disease: <60 mL/min/1.73sq m Kidney failure: <15 mL/min/1.73sq m eGFR calculated using average adult body mass. Additional eGFR calculator available at: http://www.[employer]/multiple_crcl_2011.htm Performed By: #### ARMANDO Warren URI #### [facility] [address] [place] [address] [place] [address] Sensitized Paper Tester: Loi Irene MD #### PTHNCA #### [address] [address] Sensitized Paper Tester: Dg Aparicio MD Albumin [Mass/Vol] 3.5 g/dL Normal 3.5-5.2 [facility] Comment on above: Performed By: #### ARMANDO Warren URI #### [facility] [address] [place] [address] [place] [address] Sensitized Paper Tester: Loi Irene MD #### PTHNCA #### [place] [address] [place] [address] Sensitized Paper Tester: Dg Aparicio MD Anion gap [Moles/Vol] 11 mmol/L Normal 9-17 [facility] Comment on above: Performed By: #### ARMANDO Warren URI #### [address] [place] [address] Sensitized Paper Tester: Loi Irene MD #### PTHNCA #### [place] [address]37[address] [place] [address] Sensitized Paper Tester: Dg Aparicio MD BUN/CRE Ratio 20 Normal 9-20 [facility] Comment on above: Performed By: #### ARMANDO Warren URI #### [facility] [address] [place], [place] [id number] Sensitized Paper Tester: Loi Irene MD #### PTHNCA #### [address] [address] Sensitized Paper Tester: Dg Aparicio MD Calcium [Mass/Vol] 9.3 mg/dL Normal 8.6-10.4 [facility] Comment on above: Performed By: #### ARMANDO Warren URI #### [facility] [address] [place], [place] 2871083 Sensitized Paper Tester: Loi Irene MD #### PTHNCA #### [address] [address] Sensitized Paper Tester: Dg Aparicio MD Chloride [Moles/Vol] 103 mmol/L Normal 98-107 [facility] Comment on above: Performed By: #### ARMANDO Warren URI #### [facility] [address] [place], [place] [id number] Sensitized Paper Tester: Loi Irene MD #### PTHNCA #### [address] [address] Sensitized Paper Tester: Dg Aparicio MD CO2 [Moles/Vol] 29 mmol/L Normal 20-31 [facility] Comment on above: Performed By: #### ARMANDO Warren URI #### [facility] [address] [place], [place] [id number] Sensitized Paper Tester: Loi Irene MD #### PTHNCA #### [address] [address] Sensitized Paper Tester: Dg Aparicio MD Creatinine [Mass/Vol] 1.43 mg/dL High 0.50-0.90 [facility] Comment on above: Performed By: #### ARMANDO Warren, URI #### [facility] [address] [place], [place] [id number] Sensitized Paper Tester: Loi Irene MD #### PTHNCA #### [address] [address] Sensitized Paper Tester: Dg Aparicio MD GFR, Amer 42 mL/min Low >60 [facility] Comment on above: Performed By: #### ARMANDO Warren, URI #### [facility] [address] [place], [place] [id number] Sensitized Paper Tester: Loi Irene MD #### PTHNCA #### [address] [address] Sensitized Paper Tester: Dg Aparicio MD GFR,non Amer 35 mL/min Low >60 [facility] Comment on above: Performed By: #### ARMANDO Warren, URI #### [facility] [address] [place] [address] Dr. [place], [place] 2422483 Sensitized Paper Tester: Loi Irene MD #### PTHNCA #### [address] [address] Sensitized Paper Tester: Dg Aparicio MD Glucose [Mass/Vol] 131 mg/dL High 70-99 [facility] Comment on above: Performed By: #### FROY WarrenP, URI #### [facility] [address] [place], [place] 7969383 Sensitized Paper Tester: Loi Irene MD #### PTHNCA #### [address] [address] Sensitized Paper Tester: Dg Aparicio MD Phosphorus, Inorg. 3.6 mg/dL Normal 2.6-4.5 [facility] Comment on above: Performed By: #### ARMANDO Warren, URI #### [address] [place], [place] 7001183 Sensitized Paper Tester: Loi Irene MD #### PTHNCA #### [address] [id number] Sensitized Paper Tester: Dg Aparicio MD Potassium [Moles/Vol] 3.4 mmol/L Low 3.7-5.3 [facility] Comment on above: Performed By: #### ARMANDO Warren, URI #### [address] [place], [place] [id number] Sensitized Paper Tester: Loi Irene MD #### PTHNCA #### [address] [id number] Sensitized Paper Tester: Dg Aparicio MD Sodium [Moles/Vol] 143 mmol/L Normal 135-144 [facility] Comment on above: Performed By: #### ARMANDO Warren, URI #### [address] [place], [place] [id number] Sensitized Paper Tester: Loi Irene MD #### PTHNCA #### [address] [id number] Sensitized Paper Tester: Dg Aparicio MD Staging: Normal [facility] Comment on above: Result Comment: Stag e 1: Some kidney damage normal GFR Stage 2: Mild kidney damage GFR 60-89 Stage 3: Moderate kidney damage GFR 30-59 Stage 4: Severe kidney damage GFR 15-29 Stage 5: Severe kidney damage GFR <15 ESRD - chronic treatment by dialysis or transplant Performed By: #### ARMANDO Warren, URI #### [address] [place], [place] 0743583 Sensitized Paper Tester: Loi Irene MD #### PTHNCA #### [address] [place] [id number] Sensitized Paper Tester: Dg Aparicio MD Urea nitrogen [Mass/Vol] 29 mg/dL High 8-23 [facility] Comment on above: Performed By: #### ARMANDO Warren URI #### [facility] [address] [place] [address] Sensitized Paper Tester: Loi Irene MD #### PTHNCA #### [facility] [address] [place] [address] Sensitized Paper Tester: Dg Aparicio MD Albumin [Mass/Vol] 3.5 g/dL 3.5 - 5.2 g/dL [employer] Phone: Anion gap [Moles/Vol] 11 mmol/L 9 - 17 mmol/L [employer] Phone: Bun/Cre Ratio 20 [employer] Phone: Calcium [Mass/Vol] 9.3 mg/dL 8.6 - 10. 4 mg/dL [employer] Phone: Chloride [Moles/Vol] 103 mmol/L 98 - 10 7 mmol/L [employer] Phone: CO2 [Moles/Vol] 29 mmol/L 20 - 31 mmol/L [employer] Phone: Creatinine [Mass/Vol] 1.43 mg/dL High 0.50 - 0.90 mg/dL [employer] Phone: GFR 42 mL/min Low >60 [employer] Phone: GFR Non- 35 mL/min Low >60 [employer] Phone: Glucose [Mass/Vol] 131 mg/dL High 70 - 99 mg/dL [employer] Phone: Phosphate [Mass/Vol] 3.6 mg/dL 2.6 - 4 .5 mg/dL [employer] Phone: Potassium [Moles/Vol] 3.4 mmol/L Low 3.7 - 5.3 mmol/L [employer] Phone: Sodium [Moles/Vol] 143 mmol/L 135 - 144 mmol/L [facility] Phone: Urea nitrogen [Mass/Vol] 29 mg/dL High 8 - 23 mg/dL [facility] Phone: Uric Acidon 12-05-2020 Urate [Mass/Vol] 7.3 mg/dL High 2.4-5.7 [facility] Comment on above: Performed By: #### M ARMANDO Sánchez, OMAIRAI #### [address] [place] [address] Sensitized Paper Tester: Loi Irene MD #### PTHNCA #### [facility] [address] [place] [address] [id number] Sensitized Paper Tester: Dg Aparicio MD Urate [Mass/Vol] 7.3 mg/dL High 2.4 - 5.7 mg/dL [facility] [employer] Phone: C-Reactive Proteinon 021 CRP [Mass/Vol] 7.8 mg/L High 0.0-5.0 [facility] Comment on above: Performed By: #### C DP, SED #### [address] [place] [address] Sensitized Paper Tester: Loi Irene MD #### CRP #### [facility] [address] [place] [address] [id number] Sensitized Paper Tester: Dg Aparicio MD CRP [Mass/Vol] 7.8 mg/L High 0 - 5 mg/L [facility] [employer] Phone: Interpretation and review of laboratory results Abnormal [employer] Phone: CBC Auto Differentialon 10-28 Basophils (Bld) [#/Vol] 10*3/uL [facility] [employer] [facility] Phone: Basophils/100 WBC (Bld) 0 % 0 - 2 % [facility] Phone: Differential Type NOT REPORTED [employer] Phone: Eosinophils (Bld) [#/Vol] 0.37 10*3/uL [employer] Phone: Eosinophils/100 WBC (Bld) 5 % High 1 - 4 % [employer] Phone: Erythrocyte distribution width (RBC) [Ratio] 17.7 % High 11.8 - 14.4 % [employer] Phone: Hematocrit (Bld) [Volume fraction] 36.9 % 36.3 - 47.1 % [employer] Phone: Hemoglobin (Bld) [Mass/Vol] 11.1 g/dL Low 11.9 - 15.1 g/dL [employer] Phone: Immature granulocytes (Bld) [#/Vol] 10*3/uL [employer] Phone: Immature granulocytes (Bld) [#/Vol] 0 % 0 [employer] Phone: Interpretation and review of laboratory results Abnormal [employer] Phone: Lymphocytes (Bld) [#/Vol] 1.74 10*3/uL [employer] Phone: Lymphocytes/100 WBC (Bld) 23 % Low 24 - 43 % [employer] Phone: MCH (RBC) [Entitic mass] 29.6 pg 25.2 - 33.5 pg [employer] Phone: MCHC (RBC) [Mass/Vol] 30.1 g/dL 28.4 - 34.8 g/dL [employer] Phone: MCV (RBC) [Entitic vol] 98.4 fL 82.6 - 102.9 fL [employer] Phone: Monocytes (Bld) [#/Vol] 0.76 10*3/uL [employer] Phone: Monocytes/100 WBC (Bld) 10 % 3 - 12 % [facility] Phone: Platelet mean volume (Bld) [Entitic vol] 9.9 fL 8.1 - 13.5 fL [employer] Phone: Platelets (Bld) [#/Vol] NOT REPORTED [employer] Phone: Platelets (Bld) [#/Vol] 344 10*3/uL [employer] Phone: RBC (Bld) [#/Vol] 3.75 10*6/uL Low 3.95 - 5.1 1 m/uL [employer] Phone: RBC morphology finding Nom (Bld) NOT REPORTED [employer] Phone: Segmented neutrophils/100 WBC (Bld) 62 % 36 - 65 % [employer] Phone: Segs Absolute 4.61 [employer] Phone: WBC (Bld) [#/Vol] 7.5 10*3/uL [employer] Phone: WBC (Bld) [#/Vol] 0.0 10*3/uL 0.0 per 10 0 WBC [employer] Phone: WBC Morphology NOT REPORTED [employer] Phone: CBC with Diffon 11-07-2020 Abs. Basophil <0.03 Normal 0.00-0.20 [facility] Comment on above: Performed By: #### C DP, SED #### [address] [place] [address] Sensitized Paper Tester: Loi Irene MD #### CRP #### [address] [id number] Sensitized Paper Tester: Dg Aparicio MD Abs.Imm.Granulocyte <0.03 Normal 0.00-0.30 [facility] Comment on above: Performed By: #### C DP, SED #### [address] [place] [id number] Sensitized Paper Tester: Loi Irene MD #### CRP #### [place] [address] Sensitized Paper Tester: Dg Aparicio MD Abs.Neutrophil (Seg) 4.61 k/uL Normal 1.50-8.10 [facility] Comment on above: Performed By: #### C DP, SED #### [address] [place] [id number] ( Sensitized Paper Tester: Loi Irene MD #### CRP #### [place] [address] Sensitized Paper Tester: Dg Aparicio MD Basophils/100 WBC (Bld) 0 % Normal 0-[address] [facility] Comment on above: Performed By: #### C DP, SED #### [address] [place] [address] Sensitized Paper Tester: Loi Irene MD #### CRP #### [place] [address] Sensitized Paper Tester: Dg Aparicio MD Eosinophils (Bld) [#/Vol] 0.37 10*3/uL Normal 0.00-0.44 [facility] Comment on above: Performed By: #### C DP, SED #### [address] [place] [phone] Sensitized Paper Tester: Loi Ireen MD #### CRP #### [address] [id number] Sensitized Paper Tester: Dg Aparicio MD Eosinophils/100 WBC (Bld) 5 % High 1-4 [facility] Comment on above: Performed By: #### C DP, SED #### [facility] [address] [place] [address] Dr. [place] [phone] Sensitized Paper Tester: Loi Irene MD #### CRP #### [address] [address] Sensitized Paper Tester: Dg Aparicio MD Erythrocyte distribution width (RBC) [Ratio] 17.7 % High 11.8-14.4 [facility] Comment on above: Performed By: #### C DP, SED #### [address] [place] [id number] Sensitized Paper Tester: Loi Irene MD #### CRP #### [address] [address] Sensitized Paper Tester: Dg Aparicio MD Hematocrit (Bld) [Volume fraction] 36.9 % Normal 36.3-47.1 [facility] Comment on above: Performed By: #### C DP, SED #### [address] [place] [id number] Sensitized Paper Tester: Loi Irene MD #### CRP #### [address] [address] Sensitized Paper Tester: Dg Aparicio MD Hemoglobin (Bld) [Mass/Vol] 11.1 g/dL Low 11.9-15.1 [facility] Comment on above: Performed By: #### C DP, SED #### [address] [place], [place] [id number] Sensitized Paper Tester: Loi Irene MD #### CRP #### [address] [address] Sensitized Paper Tester: Dg Aparicio MD Immature granulocytes/100 WBC (Bld) 0 % Normal 0 [facility] Comment on above: Performed By: #### C DP, SED #### [facility] [address] [place], [place] [id number] Sensitized Paper Tester: Loi Irene MD #### CRP #### [address] [address] Sensitized Paper Tester: Dg Aparicio MD Lymphocytes (Bld) [#/Vol] 1.74 10*3/uL Normal 1.10-3.70 [facility] Comment on above: Performed By: #### C DP, SED #### [facility] [address] [place] [address] Dr. [place] [id number] Sensitized Paper Tester: Loi Irene MD #### CRP #### [address] [address] Sensitized Paper Tester: Dg Aparicio MD Lymphocytes/100 WBC (Bld) 23 % Low 24-43 [facility] Comment on above: Performed By: #### C DP, SED #### [facility] [address] [place] [address] [place] [id number] Sensitized Paper Tester: Loi Irene MD #### CRP #### [address] [address] Sensitized Paper Tester: Dg Aparicio MD MCH (RBC) [Entitic mass] 29.6 pg Normal 25.2-33.5 [facility] Comment on above: Performed By: #### C DP, SED #### [facility] [address] [place] [address] [place], [place] [id number] Sensitized Paper Tester: Loi Irene MD #### CRP #### [address] [address] Sensitized Paper Tester: Dg Aparicio MD MCHC (RBC) [Mass/Vol] 30.1 g/dL Normal 28.4-34.8 [facility] Comment on above: Performed By: #### C DP, SED #### [address] [place], [place] [phone] Sensitized Paper Tester: Loi Irene MD #### CRP #### [address] [id number] Sensitized Paper Tester: Dg Aparicio MD MCV (RBC) [Entitic vol] 98.4 fL Normal 82.6-102.9 [facility] Comment on above: Performed By: #### C DP, SED #### [address] [place] [id number] Sensitized Paper Tester: Loi Irene MD #### CRP #### [address] [id number] Sensitized Paper Tester: Dg Aparicio MD Monocytes (Bld) [#/Vol] 0.76 10*3/uL Normal 0.10-1.20 [facility] Comment on above: Performed By: #### C DP, SED #### [address] [place], [place] [id number] Sensitized Paper Tester: Loi Irene MD #### CRP #### [address] [address] Sensitized Paper Tester: Dg Aparicio MD Monocytes/100 WBC (Bld) 10 % Normal 3-12 [facility] Comment on above: Performed By: #### C DP, SED #### [address] [place], [place] [id number] Sensitized Paper Tester: Loi Irene MD #### CRP #### [address] [id number] Sensitized Paper Tester: Dg Aparicio MD Neutrophil (Seg) 62 % Normal 36-65 [facility] Comment on above: Performed By: #### C DP, SED #### [facility] [address] [place], [place] [id number] Sensitized Paper Tester: Loi Irene MD #### CRP #### [address] [id number] Sensitized Paper Tester: Dg Aparicio MD NRBC Automated 0.0 per [address] [facility] Comment on above: Performed By: #### C DP, SED #### [facility] [address] [place], [place] [id number] Sensitized Paper Tester: Loi Irene MD #### CRP #### [address] [id number] Sensitized Paper Tester: Dg Aparicio MD Platelet mean volume (Bld) [Entitic vol] 9.9 fL Normal 8.1-13.5 [facility] Comment on above: Performed By: #### C DP, SED #### [facility] [address] [place] [id number] Sensitized Paper Tester: Loi Irene MD #### CRP #### [address] [address] Sensitized Paper Tester: Dg Aparicio MD Platelets (Bld) [#/Vol] 344 10*3/uL Normal 138-453 [facility] Comment on above: Performed By: #### C DP, SED #### [facility] [address] [place] [address] Dr. [place], [place] [phone] Sensitized Paper Tester: Loi Irene MD #### CRP #### [address] [address] Sensitized Paper Tester: Dg Aparicio MD RBC (Bld) [#/Vol] 3.75 10*6/uL Low 3.95-5.11 [facility] Comment on above: Performed By: #### C DP, SED #### [facility] [address] [place] [address] [place] [address] Sensitized Paper Tester: Loi Irene MD #### CRP #### [address] [address] Sensitized Paper Tester: Dg Aparicio MD WBC (Bld) [#/Vol] 7.5 10*3/uL Normal 3.5-11.3 [facility] Comment on above: Performed By: #### C DP, SED #### [address] [place], [place] [phone] Sensitized Paper Tester: Loi Irene MD #### CRP #### [address] [address] Sensitized Paper Tester: Dg Aparicio MD Auto Diff Performed NOT REPORTED Normal [facility] Comment on above: Performed By: #### C DP, SED #### [address] [place] [address] Sensitized Paper Tester: Loi Irene MD #### CRP #### [address] [address] Sensitized Paper Tester: Dg Aparicio MD Platelet Estimate NOT REPORTED Normal [facility] Comment on above: Performed By: #### C DP, SED #### [address] [place] [address] Sensitized Paper Tester: Loi Irene MD #### CRP #### [address] [address] Sensitized Paper Tester: Dg Aparicio MD RBC morphology finding Nom (Bld) NOT REPORTED Normal [facility] Comment on above: Performed By: #### C DP, SED #### [address] [place], [place] [id number] Sensitized Paper Tester: Loi Irene MD #### CRP #### [facility] [address] [place], [place] [id number] Sensitized Paper Tester: Dg Aparicio MD WBC Morphology NOT REPORTED Normal [facility] Comment on above: Performed By: #### C DP, SED #### [facility] [address] [place], [place] [id number] Sensitized Paper Tester: Loi Irene MD #### CRP #### [facility] [address] [place] [address] Sensitized Paper Tester: Dg Aparicio MD Sedimentation Rateon 021 Sedimentation Rate 51 mm High 0-20 [facility] Comment on above: Performed By: #### C DP, SED #### [facility] [address] [place], [place] [id number] Sensitized Paper Tester: Loi Irene MD #### CRP #### [facility] [address] [place], [place] [id number] Sensitized Paper Tester: Dg Aparicio MD Interpretation and review of laboratory results Abnormal [facility] Work Phone: Sed Rate 51 mm High 0 - 20 mm [facility] Work Phone: Lipid Panelon 10-30-2020 Cholesterol [Mass/Vol] 147 mg/dL <200 [place], [place] Comment on above: Cholesterol Guidelines: <200 Desirable 200-240 Borderline >240 Undesirable Cholesterol in HDL [Mass/Vol] 50 mg/dL >40 [place], [place] Comment on above: HDL Guidelines: <40 Undesirable 40-59 Borderline >59 Desirable Cholesterol in LDL [Mass/Vol] 64 mg/dL 0 - 130 mg/dL [place] Comment on above: LDL Guidelines: <100 Desirable 100-129 Near to/above Desirable 130-159 Borderline >159 Undesirable Direct (measured) LDL and calculated LDL are not interchangeable tests. Cholesterol in VLDL [Mass/Vol] NOT REPORTED High 1 - 30 mg/dL [place] Cholesterol.total/Vani sterol in HDL [Mass ratio] 2.9 {ratio} <5 [place] Interpretation and review of laboratory results Abnormal [place] Triglyceride [Mass/Vol] 166 mg/dL High <150 M [place], [place] Comment on above: Triglyceride Guidelines: <150 Desirable 150-199 Borderline 200-499 High >499 Very high Based on AHA Guidelines for fasting triglyceride, June 2012. Lipid Profileon 10-30-2020 Cholesterol [Mass/Vol] 147 mg/dL Normal <[address] [facility] Comment on above: Result Comment: Cholesterol Guidelines: <200 Desirable 200-240 Borderline >240 Undesirable Performed By: #### L IPR #### [facility] [address] [place] [address] Sensitized Paper Tester: Dg Aparicio MD Cholesterol in HDL [Mass/Vol] 50 mg/dL Normal >40 [facility] Comment on above: Result Comment: HDL Guidelines: <40 Undesirable 40-59 Borderline >59 Desirable Performed By: #### L IPR #### [facility] [address] [place] [address] Sensitized Paper Tester: Dg Aparicio MD Cholesterol in LDL [Mass/Vol] 64 mg/dL Normal 0-130 [facility] Comment on above: Result Comment: LDL Guidelines: <100 Desirable 100-129 Near to/above Desirable 130-159 Borderline >159 Undesirable Direct (measured) LDL and calculated LDL are not interchangeable tests. Performed By: #### L IPR #### [facility] [address] [place] [address] Sensitized Paper Tester: Dg Aparicio MD Cholesterol.total/Vani sterol in HDL [Mass ratio] 2.9 {ratio} Normal <5 [facility] Comment on above: Performed By: #### L IPR #### [facility] [address] [place] [address] Sensitized Paper Tester: Dg Aparicio MD Triglyceride [Mass/Vol] 166 mg/dL High <[address] [facility] Comment on above: Result Comment: Triglyceride Guidelines: <150 Desirable 150-199 Borderline 200-499 High >499 Very high Based on AHA Guidelines for fasting triglyceride, June 2012. Performed By: #### L IPR #### [facility] [address] [place] [address] Sensitized Paper Tester: Dg Aparicio MD Cholesterol,VLDL NOT REPORTED Normal 10-26 [facility] Comment on above: Performed By: #### L IPR #### [facility] [address] [place] [address] Sensitized Paper Tester: Dg Aparicio MD C-Reactive Proteinon CRP [Mass/Vol] 51.2 mg/L High 0.0-5.0 [facility] Comment on above: Performed By: #### C DP #### [facility] [address] [place] [address] Sensitized Paper Tester: Loi Irene MD #### CRP #### [address] [address] Sensitized Paper Tester: Dg Aparicio MD CRP [Mass/Vol] 51.2 mg/L High 0 - 5 mg/L [place] Interpretation and review of laboratory results Abnormal [place] CBCon 10-23-2020 Erythrocyte distribution width (RBC) [Ratio] 16.5 % High 11.8-14.4 [facility] Comment on above: Performed By: #### C DP #### [facility] [address] [place] [address] Sensitized Paper Tester: Loi Irene MD #### CRP #### [address] [address] Sensitized Paper Tester: Dg Aparicio MD Hematocrit (Bld) [Volume fraction] 32.7 % Low 36.3-47.1 [facility] Comment on above: Performed By: #### C DP #### [facility] [address] [place], [place] [id number] Sensitized Paper Tester: Loi Irene MD #### CRP #### [address] [id number] Sensitized Paper Tester: Dg Aparicio MD Hemoglobin (Bld) [Mass/Vol] 10.0 g/dL Low 11.9-15.1 [facility] Comment on above: Performed By: #### C DP #### [address] [place], [place] [id number] Sensitized Paper Tester: Loi Irene MD #### CRP #### [address] [id number] Sensitized Paper Tester: Dg Aparicio MD MCH (RBC) [Entitic mass] 29.0 pg Normal 25.2-33.5 [facility] Comment on above: Performed By: #### C DP #### [address] [place] [phone] Sensitized Paper Tester: Loi Irene MD #### CRP #### [place] [address] Sensitized Paper Tester: Dg Aparicio MD MCHC (RBC) [Mass/Vol] 30.6 g/dL Normal 28.4-34.8 [facility] Comment on above: Performed By: #### C DP #### [address] [place] [id number] Sensitized Paper Tester: Loi Irene MD #### CRP #### [address] [address] Sensitized Paper Tester: Dg Aparicio MD MCV (RBC) [Entitic vol] 94.8 fL Normal 82.6-102.9 [facility] Comment on above: Performed By: #### C DP #### [address] [place] [id number] Sensitized Paper Tester: Loi Irene MD #### CRP #### [address] [phone] Sensitized Paper Tester: Dg Aparicio MD NRBC Automated 0.0 per [address] [facility] Comment on above: Performed By: #### C DP #### [facility] [address] [place] [address] Sensitized Paper Tester: Loi Irene MD #### CRP #### [address] [id number] Sensitized Paper Tester: Dg Aparicio MD Platelet mean volume (Bld) [Entitic vol] 9.6 fL Normal 8.1-13.5 [facility] Comment on above: Performed By: #### C DP #### [facility] [address] [place] [id number] Sensitized Paper Tester: Loi Irene MD #### CRP #### [address] [address] Sensitized Paper Tester: Dg Aparicio MD Platelets (Bld) [#/Vol] 478 10*3/uL High 138-453 [facility] Comment on above: Performed By: #### C DP #### [facility] [address] [place] [id number] Sensitized Paper Tester: Loi Irene MD #### CRP #### [address] [address] Sensitized Paper Tester: Dg Aparicio MD RBC (Bld) [#/Vol] 3.45 10*6/uL Low 3.95-5.11 [facility] Comment on above: Performed By: #### C DP #### [facility] [address] [place], [place] [id number] Sensitized Paper Tester: Loi Irene MD #### CRP #### [address] [address] Sensitized Paper Tester: Dg Aparicio MD WBC (Bld) [#/Vol] 8.2 10*3/uL Normal 3.5-11.3 [facility] Comment on above: Performed By: #### C DP #### [facility] [address] [place] [address] Sensitized Paper Tester: Loi Irene MD #### CRP #### [facility] [address] [place] [address] Sensitized Paper Tester: Dg Aparicio MD Erythrocyte distribution width (RBC) [Ratio] 16.5 % High 11.8 - 14.4 % [place] Hematocrit (Bld) [Volume fraction] 32.7 % Low 36.3 - 47.1 % [place] Hemoglobin (Bld) [Mass/Vol] 10.0 g/dL Low 11.9 - 15.1 g/dL [place] Interpretation and review of laboratory results Abnormal [place] MCH (RBC) [Entitic mass] 29.0 pg 25.2 - 33.5 pg [place] MCHC (RBC) [Mass/Vol] 30.6 g/dL 28.4 - 34.8 g/dL [place] MCV (RBC) [Entitic vol] 94.8 fL 82.6 - 102.9 fL [place] Platelet mean volume (Bld) [Entitic vol] 9.6 fL 8.1 - 13.5 fL [place] Platelets (Bld) [#/Vol] 478 10*3/uL High [place] RBC (Bld) [#/Vol] 3.45 10*6/uL Low 3.95 - 5.1 1 m/uL [place] WBC (Bld) [#/Vol] 8.2 10*3/uL [place] WBC (Bld) [#/Vol] 0.0 10*3/uL 0.0 per 10 0 WBC [place] Comp Metabolic Profon 2020 (cont.) Normal [facility] Comment on above: Result Comment: Aver age GFR for 70 or more years old: 75 mL/min/1.73sq m Chronic Kidney Disease: <60 mL/min/1.73sq m Kidney failure: <15 mL/min/1.73sq m eGFR calculated using average adult body mass. Additional eGFR calculator available at: http://www.[employer]/multiple_crcl_2011.htm Performed By: #### C DP #### [facility] [address] [place] [address] Dr. [place], [place] [phone] Sensitized Paper Tester: Loi Irene MD #### CRP #### [address] [address] Sensitized Paper Tester: Dg Aparicio MD Albumin [Mass/Vol] 3.0 g/dL Low 3.5-5.2 [facility] Comment on above: Performed By: #### C DP #### [address] [place], [place] [id number] Sensitized Paper Tester: Loi Irene MD #### CRP #### [address] [address] Sensitized Paper Tester: Dg Aparicio MD Albumin/Glob Ratio 0.8 Low 1.0-2.5 [facility] Comment on above: Performed By: #### C DP #### [address] [place], [place] [id number] Sensitized Paper Tester: Loi Irene MD #### CRP #### [address] [address] Sensitized Paper Tester: Dg Aparicio MD Alkaline Phos 105 U/L High 35-104 [facility] Comment on above: Performed By: #### C DP #### [address] [place], [place] 0294683 Sensitized Paper Tester: Loi Irene MD #### CRP #### [address] [address] Sensitized Paper Tester: Dg Aparicio MD ALT [Catalytic activity/Vol] 11 U/L Normal 5-33 [facility] Comment on above: Performed By: #### C DP #### [facility] [address] [place], [place] 1794883 Sensitized Paper Tester: Loi Irene MD #### CRP #### [address] [address] Sensitized Paper Tester: Dg Aparicio MD Anion gap [Moles/Vol] 11 mmol/L Normal 9-17 [facility] Comment on above: Performed By: #### C DP #### [facility] [address] [place], [place] [phone] Sensitized Paper Tester: Loi Irene MD #### CRP #### [address] [address] Sensitized Paper Tester: Dg Aparicio MD AST [Catalytic activity/Vol] 14 U/L Normal <32 [facility] Comment on above: Performed By: #### C DP #### [facility] [address] [place] [address] Sensitized Paper Tester: Loi Irene MD #### CRP #### [address] [address] Sensitized Paper Tester: Dg Aparicio MD Bilirubin [Mass/Vol] 0.24 mg/dL Low 0.3-1.2 [facility] Comment on above: Performed By: #### C DP #### [facility] [address] [place] [address] Sensitized Paper Tester: Loi Irene MD #### CRP #### [address] [address] Sensitized Paper Tester: Dg Aparicio MD BUN/CRE Ratio 22 High 9-20 [facility] Comment on above: Performed By: #### C DP #### [facility] [address] [place], [place] [phone] Sensitized Paper Tester: Loi Irene MD #### CRP #### [address] [address] Sensitized Paper Tester: Dg Aparicio MD Calcium [Mass/Vol] 8.9 mg/dL Normal 8.6-10.4 [facility] Comment on above: Performed By: #### C DP #### [facility] [address] [place], [place] [id number] Sensitized Paper Tester: Loi Irene MD #### CRP #### [address] [address] Sensitized Paper Tester: Dg Aparicio MD Chloride [Moles/Vol] 99 mmol/L Normal 98-107 [facility] Comment on above: Performed By: #### C DP #### [address] [place], [place] [phone] Sensitized Paper Tester: Loi Irene MD #### CRP #### [address] [address] Sensitized Paper Tester: Dg Aparicio MD CO2 [Moles/Vol] 28 mmol/L Normal 20-31 [facility] Comment on above: Performed By: #### C DP #### [facility] [address] [place] [address] Dr. [place], [place] [phone] Sensitized Paper Tester: Loi Irene MD #### CRP #### [address] [address] Sensitized Paper Tester: Dg Aparicio MD Creatinine [Mass/Vol] 1.27 mg/dL High 0.50-0.90 [facility] Comment on above: Performed By: #### C DP #### [facility] [address] [place] [address] Dr. [place], [place] [id number] Sensitized Paper Tester: Loi Irene MD #### CRP #### [address] [address] Sensitized Paper Tester: Dg Aparicio MD GFR, Amer 49 mL/min Low >60 [facility] Comment on above: Performed By: #### C DP #### [facility] [address] [place], [place] [id number] Sensitized Paper Tester: Loi Irene MD #### CRP #### [address] [address] Sensitized Paper Tester: Dg Aparicio MD GFR,non Amer 40 mL/min Low >60 [facility] Comment on above: Performed By: #### C DP #### [facility] [address] [place], [place] 2304083 Sensitized Paper Tester: Loi Irene MD #### CRP #### [address] [address] Sensitized Paper Tester: Dg Aparicio MD Glucose [Mass/Vol] 159 mg/dL High 70-99 [facility] Comment on above: Performed By: #### C DP #### [facility] [address] [place], [place] [phone] Sensitized Paper Tester: Loi Irene MD #### CRP #### [address] [address] Sensitized Paper Tester: Dg Aparicio MD Potassium [Moles/Vol] 3.3 mmol/L Low 3.7-5.3 [facility] Comment on above: Performed By: #### C DP #### [facility] [address] [place] [address] Sensitized Paper Tester: Loi Irene MD #### CRP #### [address] [address] Sensitized Paper Tester: Dg Aparicio MD Protein [Mass/Vol] 6.7 g/dL Normal 6.4-8.3 [facility] Comment on above: Performed By: #### C DP #### [facility] [address] [place], [place] 5371183 Sensitized Paper Tester: Loi Irene MD #### CRP #### [place] [address] [place] [address] Sensitized Paper Tester: Dg Aparicio MD Sodium [Moles/Vol] 138 mmol/L Normal 135-144 [facility] Comment on above: Performed By: #### C DP #### [facility] [address] [place], [place] 0877483 Sensitized Paper Tester: Loi Irene MD #### CRP #### [address] [address] Sensitized Paper Tester: Dg Aparicio MD Staging: Normal [facility] Comment on above: Result Comment: Stag e 1: Some kidney damage normal GFR Stage 2: Mild kidney damage GFR 60-89 Stage 3: Moderate kidney damage GFR 30-59 Stage 4: Severe kidney damage GFR 15-29 Stage 5: Severe kidney damage GFR <15 ESRD - chronic treatment by dialysis or transplant Performed By: #### C DP #### [facility] [address] [place], [place] [phone] Sensitized Paper Tester: Loi Irene MD #### CRP #### [address] [address] Sensitized Paper Tester: Dg Aparicio MD Urea nitrogen [Mass/Vol] 28 mg/dL High 8-23 [facility] Comment on above: Performed By: #### C DP #### [facility] [address] [place], [place] 0253583 Sensitized Paper Tester: Loi Irene MD #### CRP #### [place] [address] [place] [address] Sensitized Paper Tester: Dg Aparicio MD Comprehensive Metabolic Pane [facility] 10-23-2020 Albumin [Mass/Vol] 3 g/dL Low 3.5 - 5.2 g/dL [place] Albumin/Globulin [Mass ratio] 0.8 {ratio} Low [place] ALP [Catalytic activity/Vol] 105 U/L High 35 - 104 U/L [place] ALT [Catalytic activity/Vol] 11 U/L 5 - 33 U/L [place] Anion gap [Moles/Vol] 11 mmol/L 9 - 17 mmol/L [place] AST [Catalytic activity/Vol] 14 U/L <32 [place] Bilirubin Ql (U) 0.24 mg/dL Low 0.3 - 1.2 mg/dL [place] Bun/Cre Ratio 22 High [place] Calcium [Mass/Vol] 8.9 mg/dL 8.6 - 10. 4 mg/dL [place] Chloride [Moles/Vol] 99 mmol/L 98 - 10 7 mmol/L [place] CO2 [Moles/Vol] 28 mmol/L 20 - 31 mmol/L [place] Creatinine [Mass/Vol] 1.27 mg/dL High 0.5 - 0.9 mg/dL [place] GFR 49 mL/min Low >60 [place] GFR Non- 40 mL/min Low >60 [place] Glucose [Mass/Vol] 159 mg/dL High 70 - 99 mg/dL [place] Interpretation and review of laboratory results Abnormal [place] Potassium [Moles/Vol] 3.3 mmol/L Low 3.7 - 5.3 mmol/L [place] Protein [Mass/Vol] 6.7 g/dL 6.4 - 8.3 g/dL [place] Sodium [Moles/Vol] 138 mmol/L 135 - 144 mmol/L [place] Urea nitrogen [Mass/Vol] 28 mg/dL High 8 - 23 mg/dL [place] Metabolic Panelon 10-23-2020 GFR/1.73 sq M predicted among non-blacks MDRD (S/P/Bld) [Vol rate/Area] [place] Comment on above: Average GFR for 70 o r more years old: 75 mL/min/1.73sq m Chronic Kidney Disease: <60 mL/min/1.73sq m Kidney failure: <15 mL/min/1.73sq m eGFR calculated using average adult body mass. Additional eGFR calculator available at: http://www.[employer]/multiple_crcl_2012.htm Stage 1: Some kidney damage normal GFR Stage 2: Mild kidney damage GFR 60-89 Stage 3: Moderate kidney damage GFR 30-59 Stage 4: Severe kidney damage GFR 15-29 Stage 5: Severe kidney damage GFR <15 ESRD - chronic treatment by dialysis or transplant Sedimentation Rateon 021 Sedimentation Rate 101 mm High 0-20 [facility] Comment on above: Performed By: #### C DP #### [facility] [address] [place] [address] Sensitized Paper Tester: Loi Irene MD #### CRP #### [facility] [address] [place] [address] Sensitized Paper Tester: Dg Aparicio MD Interpretation and review of laboratory results Abnormal [place] Sed Rate 101 mm High 0 - 20 mm [place] C-Reactive Proteinon 020 CRP [Mass/Vol] 33.8 mg/L High 0 - 5 mg/L [place] Interpretation and review of laboratory results Abnormal [place] CBCon 09-26-2020 Erythrocyte distribution width (RBC) [Ratio] 14.3 % 11.8 - 14.4 % [place] Hematocrit (Bld) [Volume fraction] 38.8 % 36.3 - 47.1 % [place] Hemoglobin (Bld) [Mass/Vol] 11.8 g/dL Low 11.9 - 15.1 g/dL [place] Interpretation and review of laboratory results Abnormal [place] MCH (RBC) [Entitic mass] 28.5 pg 25.2 - 33.5 pg [place] MCHC (RBC) [Mass/Vol] 30.4 g/dL 28.4 - 34.8 g/dL [place] MCV (RBC) [Entitic vol] 93.7 fL 82.6 - 102.9 fL [place] Platelet mean volume (Bld) [Entitic vol] 9.9 fL 8.1 - 13.5 fL [place] Platelets (Bld) [#/Vol] 230 10*3/uL [place] RBC (Bld) [#/Vol] 4.14 10*6/uL 3.95 - 5.1 1 m/uL [place] WBC (Bld) [#/Vol] 6.9 10*3/uL [place] WBC (Bld) [#/Vol] 0.0 10*3/uL 0.0 per 10 0 WBC [place] Comprehensive Metabolic Pane riddhi 09-26-2020 Albumin [Mass/Vol] 3.4 g/dL Low 3.5 - 5.2 g/dL [place] Albumin/Globulin [Mass ratio] 1.0 {ratio} [place] ALP [Catalytic activity/Vol] 131 U/L High 35 - 104 U/L [place] ALT [Catalytic activity/Vol] 23 U/L 5 - 33 U/L [place] Anion gap [Moles/Vol] 13 mmol/L 9 - 17 mmol/L [place] AST [Catalytic activity/Vol] 21 U/L <32 [place] Bilirubin Ql (U) 0.36 mg/dL 0.3 - 1.2 mg/dL [place] Bun/Cre Ratio 24 High [place] Calcium [Mass/Vol] 8.7 mg/dL 8.6 - 10. 4 mg/dL [place] Chloride [Moles/Vol] 96 mmol/L Low 98 - 10 7 mmol/L [place] CO2 [Moles/Vol] 28 mmol/L 20 - 31 mmol/L [place] Creatinine [Mass/Vol] 1.27 mg/dL High 0.5 - 0.9 mg/dL [place] GFR 49 mL/min Low >60 [place] GFR Non- 40 mL/min Low >60 [place] Glucose [Mass/Vol] 138 mg/dL High 70 - 99 mg/dL [place] Interpretation and review of laboratory results Abnormal [place] Potassium [Moles/Vol] 3.4 mmol/L Low 3.7 - 5.3 mmol/L [place] Protein [Mass/Vol] 6.7 g/dL 6.4 - 8.3 g/dL [place] Sodium [Moles/Vol] 137 mmol/L 135 - 144 mmol/L [place] Urea nitrogen [Mass/Vol] 31 mg/dL High 8 - 23 mg/dL [place] Magnesiumon 09-26-2020 Magnesium [Mass/Vol] 2.1 mg/dL 1.6 - 2 .6 mg/dL [place] Metabolic Panelon 09-26-2020 GFR/1.73 sq M predicted among non-blacks MDRD (S/P/Bld) [Vol rate/Area] [place] Comment on above: Average GFR for 70 o r more years old: 75 mL/min/1.73sq m Chronic Kidney Disease: <60 mL/min/1.73sq m Kidney failure: <15 mL/min/1.73sq m eGFR calculated using average adult body mass. Additional eGFR calculator available at: http://www.[employer]/multiple_crcl_2012.htm Stage 1: Some kidney damage normal GFR Stage 2: Mild kidney damage GFR 60-89 Stage 3: Moderate kidney damage GFR 30-59 Stage 4: Severe kidney damage GFR 15-29 Stage 5: Severe kidney damage GFR <15 ESRD - chronic treatment by dialysis or transplant Sedimentation Rateon 020 Interpretation and review of laboratory results Abnormal [place] Sed Rate 53 mm High 0 - 20 mm [place] C-Reactive Proteinon 020 CRP [Mass/Vol] 43.7 mg/L High 0 - 5 mg/L [place] Interpretation and review of laboratory results Abnormal [place] CBCon 09-18-2020 Erythrocyte distribution width (RBC) [Ratio] 14.0 % 11.8 - 14.4 % [place] Hematocrit (Bld) [Volume fraction] 37.2 % 36.3 - 47.1 % [place] Hemoglobin (Bld) [Mass/Vol] 11.4 g/dL Low 11.9 - 15.1 g/dL [place] Interpretation and review of laboratory results Abnormal [place] MCH (RBC) [Entitic mass] 29.2 pg 25.2 - 33.5 pg [place] MCHC (RBC) [Mass/Vol] 30.6 g/dL 28.4 - 34.8 g/dL [place] MCV (RBC) [Entitic vol] 95.4 fL 82.6 - 102.9 fL [place] Platelet mean volume (Bld) [Entitic vol] 10.6 fL 8.1 - 13.5 fL [place] Platelets (Bld) [#/Vol] 254 10*3/uL [place] RBC (Bld) [#/Vol] 3.90 10*6/uL Low 3.95 - 5.1 1 m/uL [place] WBC (Bld) [#/Vol] 8.3 10*3/uL [place] WBC (Bld) [#/Vol] 0.0 10*3/uL 0.0 per 10 0 WBC [place] Comprehensive Metabolic Pane riddhi 09-18-2020 Albumin [Mass/Vol] 3.3 g/dL Low 3.5 - 5.2 g/dL [place] Albumin/Globulin [Mass ratio] 1.1 {ratio} [place] ALP [Catalytic activity/Vol] 137 U/L High 35 - 104 U/L [place] ALT [Catalytic activity/Vol] 14 U/L 5 - 33 U/L [place] Anion gap [Moles/Vol] 8 mmol/L Low 9 - 17 mmol/L [place] AST [Catalytic activity/Vol] 12 U/L <32 [place] Bilirubin Ql (U) 0.27 mg/dL Low 0.3 - 1.2 mg/dL [place] Bun/Cre Ratio 30 High [place] Calcium [Mass/Vol] 8.9 mg/dL 8.6 - 10. 4 mg/dL [place] Chloride [Moles/Vol] 95 mmol/L Low 98 - 10 7 mmol/L [place] CO2 [Moles/Vol] 30 mmol/L 20 - 31 mmol/L [place] Creatinine [Mass/Vol] 1.21 mg/dL High 0.5 - 0.9 mg/dL [place] GFR 52 mL/min Low >60 [place] GFR Non- 42 mL/min Low >60 [place] Glucose [Mass/Vol] 206 mg/dL High 70 - 99 mg/dL [place] Interpretation and review of laboratory results Abnormal [place] Potassium [Moles/Vol] 2.9 mmol/L Critically low 3.7 - 5.3 mmol/L [place] Protein [Mass/Vol] 6.4 g/dL 6.4 - 8.3 g/dL [place] Sodium [Moles/Vol] 133 mmol/L Low 135 - 144 mmol/L [place] Urea nitrogen [Mass/Vol] 36 mg/dL High 8 - 23 mg/dL [place] Metabolic Panelon 09-18-2020 GFR/1.73 sq M predicted among non-blacks MDRD (S/P/Bld) [Vol rate/Area] [place] Comment on above: Average GFR for 70 o r more years old: 75 mL/min/1.73sq m Chronic Kidney Disease: <60 mL/min/1.73sq m Kidney failure: <15 mL/min/1.73sq m eGFR calculated using average adult body mass. Additional eGFR calculator available at: http://www.[employer]/multiple_crcl_2012.htm Stage 1: Some kidney damage normal GFR Stage 2: Mild kidney damage GFR 60-89 Stage 3: Moderate kidney damage GFR 30-59 Stage 4: Severe kidney damage GFR 15-29 Stage 5: Severe kidney damage GFR <15 ESRD - chronic treatment by dialysis or transplant Sedimentation Rateon Interpretation and review of laboratory results Abnormal [place] Sed Rate 37 mm High 0 - 20 mm [place] C-Reactive Proteinon CRP [Mass/Vol] 17.9 mg/L High 0 - 5 mg/L [place] Interpretation and review of laboratory results Abnormal [place] CBCon 09-11-2020 Erythrocyte distribution width (RBC) [Ratio] 13.8 % 11.8 - 14.4 % [place] Hematocrit (Bld) [Volume fraction] 37.9 % 36.3 - 47.1 % [place] Hemoglobin (Bld) [Mass/Vol] 11.4 g/dL Low 11.9 - 15.1 g/dL [place] Interpretation and review of laboratory results Abnormal [place] MCH (RBC) [Entitic mass] 28.4 pg 25.2 - 33.5 pg [place] MCHC (RBC) [Mass/Vol] 30.1 g/dL 28.4 - 34.8 g/dL [place] MCV (RBC) [Entitic vol] 94.5 fL 82.6 - 102.9 fL [place] Platelet mean volume (Bld) [Entitic vol] 10.7 fL 8.1 - 13.5 fL [place] Platelets (Bld) [#/Vol] 269 10*3/uL [place] RBC (Bld) [#/Vol] 4.01 10*6/uL 3.95 - 5.1 1 m/uL [place] WBC (Bld) [#/Vol] 0.0 10*3/uL 0.0 per 10 0 WBC [place] WBC (Bld) [#/Vol] 7.1 10*3/uL [place] Comprehensive Metabolic Pane riddhi 09-11-2020 Albumin [Mass/Vol] 3.8 g/dL 3.5 - 5.2 g/dL [place] Albumin/Globulin [Mass ratio] 1.7 {ratio} [place] ALP [Catalytic activity/Vol] 145 U/L High 35 - 104 U/L [place] ALT [Catalytic activity/Vol] 14 U/L 5 - 33 U/L [place] Anion gap [Moles/Vol] 13 mmol/L 9 - 17 mmol/L [place] AST [Catalytic activity/Vol] 12 U/L <32 [place] Bilirubin Ql (U) 0.28 mg/dL Low 0.3 - 1.2 mg/dL [place] Bun/Cre Ratio 35 High [place] Calcium [Mass/Vol] 9.3 mg/dL 8.6 - 10. 4 mg/dL [place] Chloride [Moles/Vol] 98 mmol/L 98 - 10 7 mmol/L [place] CO2 [Moles/Vol] 28 mmol/L 20 - 31 mmol/L [place] Creatinine [Mass/Vol] 1.33 mg/dL High 0.5 - 0.9 mg/dL [place] GFR 46 mL/min Low >60 [place] GFR Non- 38 mL/min Low >60 [place] Glucose [Mass/Vol] 150 mg/dL High 70 - 99 mg/dL [place] Interpretation and review of laboratory results Abnormal [place] Potassium [Moles/Vol] 3.0 mmol/L Low 3.7 - 5.3 mmol/L [place] Protein [Mass/Vol] 6.1 g/dL Low 6.4 - 8.3 g/dL [place] Sodium [Moles/Vol] 139 mmol/L 135 - 144 mmol/L [place] Urea nitrogen [Mass/Vol] 46 mg/dL High 8 - 23 mg/dL [place] Metabolic Panelon 09-11-2020 GFR/1.73 sq M predicted among non-blacks MDRD (S/P/Bld) [Vol rate/Area] [place] Comment on above: Average GFR for 70 o r more years old: 75 mL/min/1.73sq m Chronic Kidney Disease: <60 mL/min/1.73sq m Kidney failure: <15 mL/min/1.73sq m eGFR calculated using average adult body mass. Additional eGFR calculator available at: http://www.[employer]/multiple_crcl_2012.htm Stage 1: Some kidney damage normal GFR Stage 2: Mild kidney damage GFR 60-89 Stage 3: Moderate kidney damage GFR 30-59 Stage 4: Severe kidney damage GFR 15-29 Stage 5: Severe kidney damage GFR <15 ESRD - chronic treatment by dialysis or transplant Sedimentation Rateon 020 Interpretation and review of laboratory results Abnormal [place] Sed Rate 34 mm High 0 - 20 mm [place] C-Reactive Proteinon 020 CRP [Mass/Vol] 11.1 mg/L High 0 - 5 mg/L [place] Interpretation and review of laboratory results Abnormal [place] Comprehensive Metabolic Pane riddhi 09-06-2020 Albumin [Mass/Vol] 3.8 g/dL 3.5 - 5.2 g/dL [place] Albumin/Globulin [Mass ratio] 1.2 {ratio} [place] ALP [Catalytic activity/Vol] 149 U/L High 35 - 104 U/L [place] ALT [Catalytic activity/Vol] 18 U/L 5 - 33 U/L [place] Anion gap [Moles/Vol] 13 mmol/L 9 - 17 mmol/L [place] AST [Catalytic activity/Vol] 18 U/L <32 [place] Bilirubin Ql (U) 0.28 mg/dL Low 0.3 - 1.2 mg/dL [place] Bun/Cre Ratio 33 High [place] Calcium [Mass/Vol] 9.8 mg/dL 8.6 - 10. 4 mg/dL [place] Chloride [Moles/Vol] 97 mmol/L Low 98 - 10 7 mmol/L [place] CO2 [Moles/Vol] 28 mmol/L 20 - 31 mmol/L [place] Creatinine [Mass/Vol] 1.33 mg/dL High 0.5 - 0.9 mg/dL [place] GFR 46 mL/min Low >60 [place] GFR Non- 38 mL/min Low >60 [place] Glucose [Mass/Vol] 209 mg/dL High 70 - 99 mg/dL [place] Interpretation and review of laboratory results Abnormal [place] Potassium [Moles/Vol] 3.0 mmol/L Low 3.7 - 5.3 mmol/L [place] Protein [Mass/Vol] 7.0 g/dL 6.4 - 8.3 g/dL [place] Sodium [Moles/Vol] 138 mmol/L 135 - 144 mmol/L [place] Urea nitrogen [Mass/Vol] 44 mg/dL High 8 - 23 mg/dL [place] Metabolic Panelon 09-06-2020 GFR/1.73 sq M predicted among non-blacks MDRD (S/P/Bld) [Vol rate/Area] [place] Comment on above: Stage 1: Some [...] body mass. Additional eGFR calculator available at: http://www.[employer]/multiple_crcl_2012.htm CBCon 09-05-2020 Erythrocyte distribution width (RBC) [Ratio] 13.9 % 11.8 - 14.4 % [place] Hematocrit (Bld) [Volume fraction] 39.5 % 36.3 - 47.1 % [place] Hemoglobin (Bld) [Mass/Vol] 12.0 g/dL 11.9 - 15.1 g/dL [place] MCH (RBC) [Entitic mass] 29.0 pg 25.2 - 33.5 pg [place] MCHC (RBC) [Mass/Vol] 30.4 g/dL 28.4 - 34.8 g/dL [place] MCV (RBC) [Entitic vol] 95.4 fL 82.6 - 102.9 fL [place] Platelet mean volume (Bld) [Entitic vol] 10.3 fL 8.1 - 13.5 fL [place] Platelets (Bld) [#/Vol] 295 10*3/uL [place] RBC (Bld) [#/Vol] 4.14 10*6/uL 3.95 - 5.1 1 m/uL [place] WBC (Bld) [#/Vol] 7.8 10*3/uL [place] WBC (Bld) [#/Vol] 0.0 10*3/uL 0.0 per 10 0 WBC [place] Comprehensive Metabolic Pane riddhi 09-05-2020 Albumin [Mass/Vol] 3.9 g/dL 3.5 - 5.2 g/dL [place] Albumin/Globulin [Mass ratio] 1.3 {ratio} [place] ALP [Catalytic activity/Vol] 143 U/L High 35 - 104 U/L [place] ALT [Catalytic activity/Vol] 15 U/L 5 - 33 U/L [place] Anion gap [Moles/Vol] 12 mmol/L 9 - 17 mmol/L [place] AST [Catalytic activity/Vol] 17 U/L <32 [place] Bilirubin Ql (U) 0.32 mg/dL 0.3 - 1.2 mg/dL [place] Bun/Cre Ratio 39 High [place] Calcium [Mass/Vol] 9.5 mg/dL 8.6 - 10. 4 mg/dL [place] Chloride [Moles/Vol] 100 mmol/L 98 - 10 7 mmol/L [place] CO2 [Moles/Vol] 29 mmol/L 20 - 31 mmol/L [place] Creatinine [Mass/Vol] 1.29 mg/dL High 0.5 - 0.9 mg/dL [place] GFR 48 mL/min Low >60 [place] GFR Non- 39 mL/min Low >60 [place] Glucose [Mass/Vol] 191 mg/dL High 70 - 99 mg/dL [place] Interpretation and review of laboratory results Abnormal [place] Potassium [Moles/Vol] 3.3 mmol/L Low 3.7 - 5.3 mmol/L [place] Protein [Mass/Vol] 7.0 g/dL 6.4 - 8.3 g/dL [place] Sodium [Moles/Vol] 141 mmol/L 135 - 144 mmol/L [place] Urea nitrogen [Mass/Vol] 50 mg/dL High 8 - 23 mg/dL [place] Metabolic Panelon 09-05-2020 GFR/1.73 sq M predicted among non-blacks MDRD (S/P/Bld) [Vol rate/Area] [place] Comment on above: Stage 1: Some [...] body mass. Additional eGFR calculator available at: http://www.[employer]/multiple_crcl_2012.htm Sedimentation Rateon 020 Interpretation and review of laboratory results Abnormal [place] Sed Rate 38 mm High 0 - 20 mm [place] C-Reactive Proteinon 020 CRP [Mass/Vol] 9.3 mg/L High 0 - 5 mg/L [place] Interpretation and review of laboratory results Abnormal [place] CBCon 08-28-2020 Erythrocyte distribution width (RBC) [Ratio] 13.5 % 11.8 - 14.4 % [place] Hematocrit (Bld) [Volume fraction] 37.9 % 36.3 - 47.1 % [place] Hemoglobin (Bld) [Mass/Vol] 11.9 g/dL 11.9 - 15.1 g/dL [place] MCH (RBC) [Entitic mass] 29.3 pg 25.2 - 33.5 pg [place] MCHC (RBC) [Mass/Vol] 31.4 g/dL 28.4 - 34.8 g/dL [place] MCV (RBC) [Entitic vol] 93.3 fL 82.6 - 102.9 fL [place] Platelet mean volume (Bld) [Entitic vol] 10.1 fL 8.1 - 13.5 fL [place] Platelets (Bld) [#/Vol] 303 10*3/uL [place] RBC (Bld) [#/Vol] 4.06 10*6/uL 3.95 - 5.1 1 m/uL [place] WBC (Bld) [#/Vol] 6.9 10*3/uL [place] WBC (Bld) [#/Vol] 0.0 10*3/uL 0.0 per 10 0 WBC [place] Comprehensive Metabolic Pane riddhi 08-28-2020 Albumin [Mass/Vol] 3.5 g/dL 3.5 - 5.2 g/dL [place] Albumin/Globulin [Mass ratio] 1.2 {ratio} [place] ALP [Catalytic activity/Vol] 134 U/L High 35 - 104 U/L [place] ALT [Catalytic activity/Vol] 12 U/L 5 - 33 U/L [place] Anion gap [Moles/Vol] 11 mmol/L 9 - 17 mmol/L [place] AST [Catalytic activity/Vol] 14 U/L <32 [place] Bilirubin Ql (U) 0.22 mg/dL Low 0.3 - 1.2 mg/dL [place] Bun/Cre Ratio 38 High [place] Calcium [Mass/Vol] 9.1 mg/dL 8.6 - 10. 4 mg/dL [place] Chloride [Moles/Vol] 105 mmol/L 98 - 10 7 mmol/L [place] CO2 [Moles/Vol] 27 mmol/L 20 - 31 mmol/L [place] Creatinine [Mass/Vol] 1.13 mg/dL High 0.5 - 0.9 mg/dL [place] GFR 56 mL/min Low >60 [place] GFR Non- 46 mL/min Low >60 [place] Glucose [Mass/Vol] 174 mg/dL High 70 - 99 mg/dL [place] Interpretation and review of laboratory results Abnormal [place] Potassium [Moles/Vol] 3.5 mmol/L Low 3.7 - 5.3 mmol/L [place] Protein [Mass/Vol] 6.4 g/dL 6.4 - 8.3 g/dL [place] Sodium [Moles/Vol] 143 mmol/L 135 - 144 mmol/L [place] Urea nitrogen [Mass/Vol] 43 mg/dL High 8 - 23 mg/dL [place] Metabolic Panelon 08-28-2020 GFR/1.73 sq M predicted among non-blacks MDRD (S/P/Bld) [Vol rate/Area] [place] Comment on above: Average GFR for 70 o r more years old: 75 mL/min/1.73sq m Chronic Kidney Disease: <60 mL/min/1.73sq m Kidney failure: <15 mL/min/1.73sq m eGFR calculated using average adult body mass. Additional eGFR calculator available at: http://www.[employer]/multiple_crcl_2012.htm Stage 1: Some kidney damage normal GFR Stage 2: Mild kidney damage GFR 60-89 Stage 3: Moderate kidney damage GFR 30-59 Stage 4: Severe kidney damage GFR 15-29 Stage 5: Severe kidney damage GFR <15 ESRD - chronic treatment by dialysis or transplant Sedimentation Rateon 020 Interpretation and review of laboratory results Abnormal [place] Sed Rate 30 mm High 0 - 20 mm [place] Infectious Disease Office/Cl inic Noteon 08-27-2020 [...] Manuel Ibarra MD 08/29/20 09:08 EST Normal [facility] Microscopic Urinalysison Amorphous, UA NOT REPORTED None [facility] [place] Bacteria, UA 4+ Abnormal None [facility] [place] Casts UA NOT REPORTED /LPF [facility] Crystals, UA 10 TO 20 Abnormal None /HPF [facility] Crystals, UA TRIPLE PHOSPHATE Abnormal None /HPF [facility] Epithelial Cells UA 5 TO 10 [facility] Interpretation and review of laboratory results Abnormal [facility] [place] Mucus, UA NOT REPORTED None [facility] [place] Other Observations UA NOT REPORTED NOT REQ. M [facility] [place] RBC (U) [#/Vol] 20 TO 50 [facility] Renal Epithelial, UA NOT REPORTED 0 /HPF [facility] [place] Trichomonas, UA NOT REPORTED None [facility] [place] WBC, UA GREATER THAN 100 [facility] Yeast, UA NOT REPORTED None [facility] - [facility] [place] Provider Letteron 08-27-2020 Provider Letter Justino Dhaliwal DO [address] [place] [address] Re: Jesús Nolan Date of Visit: 08/27/[address] Dhaliwal, Thank you for your referral to my office. Attached you will find the most recent office visit note. Please call if you have any questions or concerns. Sincerely, Manuel Ibarra MD [address] [place] [address], [place] [address] The following document(s) were included in the letter: August 27, 2020 15:16:22 EST - (08/27/2020) Telehealth Office Visit Note Normal [facility] Urinalysison 08-27-2020 Bilirubin Urine Negative NEGATIVE [facility] [place] Color, UA YELLOW YELLOW [facility] Glucose, Ur Negative NEGATIVE [facility] [place] Interpretation and review of laboratory results Abnormal [facility] [place] Ketones Ql (U) Negative NEGATIVE [facility] [place] Leukocyte esterase Test strip Ql (U) LARGE Abnormal NEGATIVE [facility] [place] Nitrite, Urine Negative NEGATIVE [facility] [place] pH, UA >=9.0 [facility], [place] Protein (U) [Mass/Vol] 2+ Abnormal NEGATIVE Me [facility] Specific [place], UA 1.010 [facility] [place] Turbidity UA CLOUDY Abnormal CLEAR [facility] [place] Urinalysis Comments NOT REPORTED [facility] Urine Hgb Negative NEGATIVE [facility] Urobilinogen, Urine Normal Normal [facility] [place] C-Reactive Proteinon 020 CRP [Mass/Vol] 26.8 mg/L High 0 - 5 mg/L [facility] [place] Interpretation and review of laboratory results Abnormal [facility], [place] CBCon 08-21-2020 Erythrocyte distribution width (RBC) [Ratio] 13.7 % 11.8 - 14.4 % [facility] [place] Hematocrit (Bld) [Volume fraction] 40.0 % 36.3 - 47.1 % [facility], [place] Hemoglobin (Bld) [Mass/Vol] 11.9 g/dL 11.9 - 15.1 g/dL [place] MCH (RBC) [Entitic mass] 29.0 pg 25.2 - 33.5 pg [place] MCHC (RBC) [Mass/Vol] 29.8 g/dL 28.4 - 34.8 g/dL [place] MCV (RBC) [Entitic vol] 97.3 fL 82.6 - 102.9 fL [place] Platelet mean volume (Bld) [Entitic vol] 10.3 fL 8.1 - 13.5 fL [place] Platelets (Bld) [#/Vol] 380 10*3/uL [place] RBC (Bld) [#/Vol] 4.11 10*6/uL 3.95 - 5.1 1 m/uL [place] WBC (Bld) [#/Vol] 0.0 10*3/uL 0.0 per 10 0 WBC [place] WBC (Bld) [#/Vol] 6.8 10*3/uL [place] Comprehensive Metabolic Pane [facility] 08-21-2020 Albumin [Mass/Vol] 4 g/dL 3.5 - 5.2 g/dL [place] Albumin/Globulin [Mass ratio] 1.2 {ratio} [place] ALP [Catalytic activity/Vol] 143 U/L High 35 - 104 U/L [place] ALT [Catalytic activity/Vol] 13 U/L 5 - 33 U/L [place] Anion gap [Moles/Vol] 14 mmol/L 9 - 17 mmol/L [place] AST [Catalytic activity/Vol] 14 U/L <32 [place] Bilirubin Ql (U) 0.18 mg/dL Low 0.3 - 1.2 mg/dL [place] Bun/Cre Ratio 38 High [place] Calcium [Mass/Vol] 10.0 mg/dL 8.6 - 10. 4 mg/dL [place] Chloride [Moles/Vol] 102 mmol/L 98 - 10 7 mmol/L [place] CO2 [Moles/Vol] 27 mmol/L 20 - 31 mmol/L [place] Creatinine [Mass/Vol] 1.57 mg/dL High 0.5 - 0.9 mg/dL [place] GFR 38 mL/min Low >60 [place] GFR Non- 31 mL/min Low >60 [place] Glucose [Mass/Vol] 123 mg/dL High 70 - 99 mg/dL [place] Interpretation and review of laboratory results Abnormal [place] Potassium [Moles/Vol] 3.8 mmol/L 3.7 - 5.3 mmol/L [place] Protein [Mass/Vol] 7.4 g/dL 6.4 - 8.3 g/dL [place] Sodium [Moles/Vol] 143 mmol/L 135 - 144 mmol/L [place] Urea nitrogen [Mass/Vol] 60 mg/dL High 8 - 23 mg/dL [place] Metabolic Panelon 08-21-2020 GFR/1.73 sq M predicted among non-blacks MDRD (S/P/Bld) [Vol rate/Area] [place] Comment on above: Average GFR for 70 o r more years old: 75 mL/min/1.73sq m Chronic Kidney Disease: <60 mL/min/1.73sq m Kidney failure: <15 mL/min/1.73sq m eGFR calculated using average adult body mass. Additional eGFR calculator available at: http://www.[employer]/multiple_crcl_2011.htm Stage 1: Some kidney damage normal GFR Stage 2: Mild kidney damage GFR 60-89 Stage 3: Moderate kidney damage GFR 30-59 Stage 4: Severe kidney damage GFR 15-29 Stage 5: Severe kidney damage GFR <15 ESRD - chronic treatment by dialysis or transplant Sedimentation Rateon 020 Interpretation and review of laboratory results Abnormal [place] Sed Rate 38 mm High 0 - 20 mm [place] C-Reactive Proteinon CRP [Mass/Vol] 14.9 mg/L High 0 - 5 mg/L [place] Interpretation and review of laboratory results Abnormal [place] CBCon 08-16-2020 Erythrocyte distribution width (RBC) [Ratio] 13.9 % 11.8 - 14.4 % [place] Hematocrit (Bld) [Volume fraction] 40.8 % 36.3 - 47.1 % [place] Hemoglobin (Bld) [Mass/Vol] 12.2 g/dL 11.9 - 15.1 g/dL [place] MCH (RBC) [Entitic mass] 28.8 pg 25.2 - 33.5 pg [place] MCHC (RBC) [Mass/Vol] 29.9 g/dL 28.4 - 34.8 g/dL [place] MCV (RBC) [Entitic vol] 96.5 fL 82.6 - 102.9 fL [place] Platelet mean volume (Bld) [Entitic vol] 9.7 fL 8.1 - 13.5 fL [place] Platelets (Bld) [#/Vol] 405 10*3/uL [place] RBC (Bld) [#/Vol] 4.23 10*6/uL 3.95 - 5.1 1 m/uL [place] WBC (Bld) [#/Vol] 0.0 10*3/uL 0.0 per 10 0 WBC [place] WBC (Bld) [#/Vol] 9.7 10*3/uL [place] Comprehensive Metabolic Pane riddhi 08-16-2020 Albumin [Mass/Vol] 3.9 g/dL 3.5 - 5.2 g/dL [place] Albumin/Globulin [Mass ratio] 1.3 {ratio} [place] ALP [Catalytic activity/Vol] 143 U/L High 35 - 104 U/L [place] ALT [Catalytic activity/Vol] 13 U/L 5 - 33 U/L [place] Anion gap [Moles/Vol] 14 mmol/L 9 - 17 mmol/L [place] AST [Catalytic activity/Vol] 17 U/L <32 [place] Bilirubin Ql (U) 0.26 mg/dL Low 0.3 - 1.2 mg/dL [place] Bun/Cre Ratio 40 High [place] Calcium [Mass/Vol] 9.4 mg/dL 8.6 - 10. 4 mg/dL [place] Chloride [Moles/Vol] 102 mmol/L 98 - 10 7 mmol/L [place] CO2 [Moles/Vol] 25 mmol/L 20 - 31 mmol/L [place] Creatinine [Mass/Vol] 1.24 mg/dL High 0.5 - 0.9 mg/dL [place] GFR 50 mL/min Low >60 [place] GFR Non- 41 mL/min Low >60 [place] Glucose [Mass/Vol] 104 mg/dL High 70 - 99 mg/dL [place] Interpretation and review of laboratory results Abnormal [place] Potassium [Moles/Vol] 4.2 mmol/L 3.7 - 5.3 mmol/L [place] Protein [Mass/Vol] 7.0 g/dL 6.4 - 8.3 g/dL [place] Sodium [Moles/Vol] 141 mmol/L 135 - 144 mmol/L [place] Urea nitrogen [Mass/Vol] 49 mg/dL High 8 - 23 mg/dL [place] Metabolic Panelon 08-16-2020 GFR/1.73 sq M predicted among non-blacks MDRD (S/P/Bld) [Vol rate/Area] [place] Comment on above: Average GFR for 70 o r more years old: 75 mL/min/1.73sq m Chronic Kidney Disease: <60 mL/min/1.73sq m Kidney failure: <15 mL/min/1.73sq m eGFR calculated using average adult body mass. Additional eGFR calculator available at: http://www.[employer]/multiple_crcl_2012.htm Stage 1: Some kidney damage normal GFR Stage 2: Mild kidney damage GFR 60-89 Stage 3: Moderate kidney damage GFR 30-59 Stage 4: Severe kidney damage GFR 15-29 Stage 5: Severe kidney damage GFR <15 ESRD - chronic treatment by dialysis or transplant Sedimentation Rateon 08-16-2 020 Interpretation and review of laboratory results Abnormal [place] Sed Rate 42 mm High 0 - 20 mm [place] CBCon 08-09-2020 Erythrocyte distribution width (RBC) [Ratio] 13.7 % 11.8 - 14.4 % [place] Hematocrit (Bld) [Volume fraction] 37.1 % 36.3 - 47.1 % [place] Hemoglobin (Bld) [Mass/Vol] 11.4 g/dL Low 11.9 - 15.1 g/dL [place] Interpretation and review of laboratory results Abnormal [place] MCH (RBC) [Entitic mass] 29.5 pg 25.2 - 33.5 pg [place] MCHC (RBC) [Mass/Vol] 30.7 g/dL 28.4 - 34.8 g/dL [place] MCV (RBC) [Entitic vol] 96.1 fL 82.6 - 102.9 fL [place] Platelet mean volume (Bld) [Entitic vol] 10.0 fL 8.1 - 13.5 fL [place] Platelets (Bld) [#/Vol] 334 10*3/uL [place] RBC (Bld) [#/Vol] 3.86 10*6/uL Low 3.95 - 5.1 1 m/uL [place] WBC (Bld) [#/Vol] 10.0 10*3/uL [place] WBC (Bld) [#/Vol] 0.0 10*3/uL 0.0 per 10 0 WBC [place] Creatinine, Random Urineon 1 10-09-2019 Creatinine, Ur 25.9 mg/dL Low 28 - 217 mg/dL [place] Interpretation and review of laboratory results Abnormal [place] Ferritinon 08-09-2020 Ferritin [Mass/Vol] 179 ug/L High 13 - 150 ug/L [place] Iron and TIBCon 08-09-2020 Iron [Mass/Vol] 38 ug/dL 37 - 145 ug/dL [place] Iron Saturation 13 % Low 20 - 55 % [place] TIBC 291 ug/dL 250 - 450 ug/dL [place] UIBC 253 ug/dL 112 - 347 ug/dL [place] Magnesiumon 08-09-2020 Magnesium [Mass/Vol] 2.1 mg/dL 1.6 - 2 .6 mg/dL [place] Metabolic Panelon 08-09-2020 GFR/1.73 sq M predicted among non-blacks MDRD (S/P/Bld) [Vol rate/Area] [place] Comment on above: Average GFR for 70 o r more years old: 75 mL/min/1.73sq m Chronic Kidney Disease: <60 mL/min/1.73sq m Kidney failure: <15 mL/min/1.73sq m eGFR calculated using average adult body mass. Additional eGFR calculator available at: http://www.[employer]/multiple_crcl_2012.htm Stage 1: Some kidney damage normal GFR Stage 2: Mild kidney damage GFR 60-89 Stage 3: Moderate kidney damage GFR 30-59 Stage 4: Severe kidney damage GFR 15-29 Stage 5: Severe kidney damage GFR <15 ESRD - chronic treatment by dialysis or transplant Microscopic Urinalysison Amorphous, UA NOT REPORTED None [place] Bacteria, UA 1+ Abnormal None [place] Casts UA NOT REPORTED /LPF [place] Crystals, UA NOT REPORTED None /HPF [place] Epithelial Cells UA 5 TO 10 [place] Interpretation and review of laboratory results Abnormal [place] Mucus, UA NOT REPORTED None [place] Other Observations UA NOT REPORTED NOT REQ. M [place] RBC (U) [#/Vol] 2 TO 5 [place] Renal Epithelial, UA NOT REPORTED 0 /HPF [place] Trichomonas, UA NOT REPORTED None [place] WBC, UA 10 TO 20 [place] Yeast, UA NOT REPORTED None [place] Otheron 08-09-2020 Interpretation and review of laboratory results Abnormal [place] PTH, [place] 08-09-2020 Pth Intact 40.39 pg/mL 15 - 65 pg/mL [place] Comment on above: SAMPLES FROM PATIENT S ROUTINELY RECEIVING HIGH DOSE BIOTIN THERAPY MAY SHOW FALSELY DEPRESSED RESULTS. ADDITIONAL INFORMATION MAY BE REQUIRED FOR DIAGNOSIS. Protein, urine, randomon Protein (U) [Mass/Vol] 10 mg/dL [place] Comment on above: No normal range esta blished. Renal Function Panelon 08-09 Albumin [Mass/Vol] 3.7 g/dL 3.5 - 5.2 g/dL [place] Anion gap [Moles/Vol] 14 mmol/L 9 - 17 mmol/L [place] Bun/Cre Ratio 38 High [place] Calcium [Mass/Vol] 9.2 mg/dL 8.6 - 10. 4 mg/dL [place] Chloride [Moles/Vol] 102 mmol/L 98 - 10 7 mmol/L [place] CO2 [Moles/Vol] 24 mmol/L 20 - 31 mmol/L [place] Creatinine [Mass/Vol] 1.07 mg/dL High 0.5 - 0.9 mg/dL [place] GFR 60 mL/min Low >60 [place] GFR Non- 49 mL/min Low >60 [place] Glucose [Mass/Vol] 111 mg/dL High 70 - 99 mg/dL [place] Interpretation and review of laboratory results Abnormal [place] Phosphate [Mass/Vol] 3.2 mg/dL 2.6 - 4 .5 mg/dL [place] Potassium [Moles/Vol] 3.9 mmol/L 3.7 - 5.3 mmol/L [place] Sodium [Moles/Vol] 140 mmol/L 135 - 144 mmol/L [place] Urea nitrogen [Mass/Vol] 41 mg/dL High 8 - 23 mg/dL [place] Uric Acidon 08-09-2020 Urate [Mass/Vol] 4.5 mg/dL 2.4 - 5.7 mg/dL [place] Urinalysis Reflex to Culture on 08-09-2020 Bilirubin Urine Negative NEGATIVE [place] Color, UA YELLOW YELLOW [place] Glucose, Ur Negative NEGATIVE [place] Interpretation and review of laboratory results Abnormal [place] Ketones Ql (U) Negative NEGATIVE [place] Leukocyte esterase Test strip Ql (U) LARGE Abnormal NEGATIVE [place] Nitrite, Urine Negative NEGATIVE [place] pH, UA 7.0 [place] Protein (U) [Mass/Vol] Negative NEGATIVE [place] Specific [place], UA 1.015 [place] Turbidity UA CLEAR CLEAR [place] Urinalysis Comments NOT REPORTED [place] Urine Hgb TRACE Abnormal NEGATIVE [place] Urobilinogen, Urine Normal Normal [place] CBCon 07-18-2020 Erythrocyte distribution width (RBC) [Ratio] 14.7 % High 11.8 - 14.4 % [place] Hematocrit (Bld) [Volume fraction] 34.6 % Low 36.3 - 47.1 % [place] Hemoglobin (Bld) [Mass/Vol] 10.3 g/dL Low 11.9 - 15.1 g/dL [place] Interpretation and review of laboratory results Abnormal [place] MCH (RBC) [Entitic mass] 30.1 pg 25.2 - 33.5 pg [place] MCHC (RBC) [Mass/Vol] 29.8 g/dL 28.4 - 34.8 g/dL [place] MCV (RBC) [Entitic vol] 101.2 fL 82.6 - 102.9 fL [place] Platelet mean volume (Bld) [Entitic vol] 9.9 fL 8.1 - 13.5 fL [place] Platelets (Bld) [#/Vol] 328 10*3/uL [place] RBC (Bld) [#/Vol] 3.42 10*6/uL Low 3.95 - 5.1 1 m/uL [place] WBC (Bld) [#/Vol] 0.0 10*3/uL 0.0 per 10 0 WBC [place] WBC (Bld) [#/Vol] 7.5 10*3/uL [place] Creatinine, Random Urineon 1 Creatinine, Ur 97.1 mg/dL 28 - 217 mg/dL [place] Magnesiumon 07-18-2020 Magnesium [Mass/Vol] 2.2 mg/dL 1.6 - 2 .6 mg/dL [place] Metabolic Panelon 07-18-2020 GFR/1.73 sq M predicted among non-blacks MDRD (S/P/Bld) [Vol rate/Area] [place] Comment on above: Average GFR for 70 o r more years old: 75 mL/min/1.73sq m Chronic Kidney Disease: <60 mL/min/1.73sq m Kidney failure: <15 mL/min/1.73sq m eGFR calculated using average adult body mass. Additional eGFR calculator available at: http://www.[employer]/multiple_crcl_2012.htm Stage 1: Some kidney damage normal GFR Stage 2: Mild kidney damage GFR 60-89 Stage 3: Moderate kidney damage GFR 30-59 Stage 4: Severe kidney damage GFR 15-29 Stage 5: Severe kidney damage GFR <15 ESRD - chronic treatment by dialysis or transplant Microscopic Urinalysison Amorphous, UA NOT REPORTED None [place] Bacteria, UA NOT REPORTED None [place] Casts UA NOT REPORTED /LPF [place] Crystals, UA CALCIUM OXALATE Abnormal None /HPF [place] Crystals, UA 0 TO 2 Abnormal None /HPF [place] Epithelial Cells UA 2 TO 5 [place] Interpretation and review of laboratory results Abnormal [place] Mucus, UA NOT REPORTED None [place] Other Observations UA NOT REPORTED NOT REQ. [place] RBC (U) [#/Vol] 0 TO 2 [place] Renal Epithelial, UA NOT REPORTED 0 /HPF Me [facility] [place], [place] Trichomonas, UA NOT REPORTED None [place] WBC, UA None [place] Yeast, UA NOT REPORTED None [place] PTH, [place] 07-18-2020 Pth Intact 58.77 pg/mL 15 - 65 pg/mL [place] Comment on above: SAMPLES FROM PATIENT S ROUTINELY RECEIVING HIGH DOSE BIOTIN THERAPY MAY SHOW FALSELY DEPRESSED RESULTS. ADDITIONAL INFORMATION MAY BE REQUIRED FOR DIAGNOSIS. Protein, urine, randomon Protein (U) [Mass/Vol] 19 mg/dL [place] Comment on above: No normal range esta blished. Renal Function Panelon 07-18 Albumin [Mass/Vol] 3.3 g/dL Low 3.5 - 5.2 g/dL [place] Anion gap [Moles/Vol] 16 mmol/L 9 - 17 mmol/L [place] Bun/Cre Ratio 27 High [place] Calcium [Mass/Vol] 8.6 mg/dL 8.6 - 10. 4 mg/dL [place] Chloride [Moles/Vol] 102 mmol/L 98 - 10 7 mmol/L [place] CO2 [Moles/Vol] 25 mmol/L 20 - 31 mmol/L [place] Creatinine [Mass/Vol] 1.17 mg/dL High 0.5 - 0.9 mg/dL [place] GFR 54 mL/min Low >60 [place] GFR Non- 44 mL/min Low >60 [place] Glucose [Mass/Vol] 97 mg/dL 70 - 99 mg/dL [place] Interpretation and review of laboratory results Abnormal [place] Phosphate [Mass/Vol] 4.3 mg/dL 2.6 - 4 .5 mg/dL [place] Potassium [Moles/Vol] 3.9 mmol/L 3.7 - 5.3 mmol/L [place] Sodium [Moles/Vol] 143 mmol/L 135 - 144 mmol/L [place] Urea nitrogen [Mass/Vol] 32 mg/dL High 8 - 23 mg/dL [place] Uric Acidon 07-18-2020 Urate [Mass/Vol] 5.1 mg/dL 2.4 - 5.7 mg/dL [place] Urinalysis Reflex to Culture on 07-18-2020 Bilirubin Urine Negative NEGATIVE [place] Color, UA YELLOW YELLOW [place] Glucose, Ur Negative NEGATIVE [place] Interpretation and review of laboratory results Abnormal [place] Ketones Ql (U) Negative NEGATIVE [place] Leukocyte esterase Test strip Ql (U) Negative NEGATIVE [place] Nitrite, Urine Negative NEGATIVE [place] pH, UA 5.5 [place] Protein (U) [Mass/Vol] Negative NEGATIVE [place] Specific [place], UA 1.025 High [place] Turbidity UA CLEAR CLEAR [place] Urinalysis Comments NOT REPORTED [place] Urine Hgb Negative NEGATIVE [place] Urobilinogen, Urine Normal Normal [place] Basic Metabolic Panelon 06-27 Anion gap [Moles/Vol] 12 mmol/L 9 - 17 mmol/L [place] Bun/Cre Ratio 35 High [place] Calcium [Mass/Vol] 8.7 mg/dL 8.6 - 10. 4 mg/dL [place] Chloride [Moles/Vol] 105 mmol/L 98 - 10 7 mmol/L [place] CO2 [Moles/Vol] 24 mmol/L 20 - 31 mmol/L [place] Creatinine [Mass/Vol] 1.02 mg/dL High 0.5 - 0.9 mg/dL [place] GFR >60 >60 mL/min [place] GFR Non- 52 mL/min Low >60 [place] Glucose [Mass/Vol] 98 mg/dL 70 - 99 mg/dL [place] Interpretation and review of laboratory results Abnormal [place] Potassium [Moles/Vol] 4.0 mmol/L 3.7 - 5.3 mmol/L [place] Sodium [Moles/Vol] 141 mmol/L 135 - 144 mmol/L [place] Urea nitrogen [Mass/Vol] 36 mg/dL High 8 - 23 mg/dL [place] Metabolic Panelon 07-09-2020 GFR/1.73 sq M predicted among non-blacks MDRD (S/P/Bld) [Vol rate/Area] [place] Comment on above: Stage 1: Some [...] body mass. Additional eGFR calculator available at: http://www.[employer]/multiple_crcl_2012.htm Basic Metabolic Panelon Anion gap [Moles/Vol] 11 mmol/L 9 - 17 mmol/L [place] Bun/Cre Ratio 36 High [place] Calcium [Mass/Vol] 9.0 mg/dL 8.6 - 10. 4 mg/dL [place] Chloride [Moles/Vol] 104 mmol/L 98 - 10 7 mmol/L [place] CO2 [Moles/Vol] 23 mmol/L 20 - 31 mmol/L [place] Creatinine [Mass/Vol] 1.59 mg/dL High 0.5 - 0.9 mg/dL [place] GFR 38 mL/min Low >60 [place] GFR Non- 31 mL/min Low >60 [place] Glucose [Mass/Vol] 82 mg/dL 70 - 99 mg/dL [place] Interpretation and review of laboratory results Abnormal [place] Potassium [Moles/Vol] 4.1 mmol/L 3.7 - 5.3 mmol/L [place] Sodium [Moles/Vol] 138 mmol/L 135 - 144 mmol/L [place] Urea nitrogen [Mass/Vol] 58 mg/dL High 8 - 23 mg/dL [place] Metabolic Panelon 07-01-2020 GFR/1.73 sq M predicted among non-blacks MDRD (S/P/Bld) [Vol rate/Area] [place] Comment on above: Stage 1: Some [...] body mass. Additional eGFR calculator available at: http://www.[employer]/multiple_crcl_2012.htm Basic Metabolic Panelon 05-29 Anion gap [Moles/Vol] 12 mmol/L 9 - 17 mmol/L [place] Bun/Cre Ratio 36 High [place] Calcium [Mass/Vol] 8.9 mg/dL 8.6 - 10. 4 mg/dL [place] Chloride [Moles/Vol] 101 mmol/L 98 - 10 7 mmol/L [place] CO2 [Moles/Vol] 23 mmol/L 20 - 31 mmol/L [place] Creatinine [Mass/Vol] 1.34 mg/dL High 0.5 - 0.9 mg/dL [place] GFR 46 mL/min Low >60 [place] GFR Non- 38 mL/min Low >60 [place] Glucose [Mass/Vol] 112 mg/dL High 70 - 99 mg/dL [place] Interpretation and review of laboratory results Abnormal [place] Potassium [Moles/Vol] 4.5 mmol/L 3.7 - 5.3 mmol/L [place] Sodium [Moles/Vol] 136 mmol/L 135 - 144 mmol/L [place] Urea nitrogen [Mass/Vol] 48 mg/dL High 8 - 23 mg/dL [place] Infectious Disease Office/Cl inju Noteon 06-25-2020 Infectious Disease Office/Clinic Note This [...] oral capsule, 0.25 mcg, 1 caps, Oral, //, Not taking desoximetasone 0.25% topical cream, 1 karir, Topical, BID hydrocodone-acetaminop hen 5 mg-325 mg [...] KUMAR, Manuel Brody 06/25/20 09:51 EDT Normal [facility] Metabolic Panelon 06-25-2020 GFR/1.73 sq M predicted among non-blacks MDRD (S/P/Bld) [Vol rate/Area] [place] Comment on above: Stage 1: Some [...] body mass. Additional eGFR calculator available at: http://www.[employer]/multiple_crcl_2012.htm Provider Letteron 06-25-2020 Provider Letter Justino Dhaliwal DO [address] [place] [address] Re: Jesús Ovidio Date of Visit: 06/25/[address] Dhaliwal, Thank you for your referral to my office. Attached you will find the most recent office visit note. Please call if you have any questions or concerns. Sincerely, Manuel Ibarra MD [address] [place] [address], [place] [address] The following document(s) were included in the letter: June 25, 2020 09:49:14 EDT - (06/25/2020) Telehealth Office Visit Note Normal [facility] Lipid Panelon 06-19-2020 Cholesterol [Mass/Vol] 151 mg/dL <200 Me [facility] [place] Comment on above: Cholesterol Guidelines: <200 Desirable 200-240 Borderline >240 Undesirable Cholesterol in HDL [Mass/Vol] 58 mg/dL >40 [place] Comment on above: HDL Guidelines: <40 Undesirable 40-59 Borderline >59 Des[place] Cholesterol in LDL [Mass/Vol] 72 mg/dL 0 - 130 mg/dL [place] Comment on above: LDL Guidelines: <100 Desirable 100-129 Near to/above Desirable 130-159 Borderline >159 Undesirable Direct (measured) LDL and calculated LDL are not interchangeable tests. Cholesterol in VLDL [Mass/Vol] NOT REPORTED 1 - 30 mg/dL [place] Cholesterol.total/Vani sterol in HDL [Mass ratio] 2.6 {ratio} <5 [place] Triglyceride [Mass/Vol] 107 mg/dL <150 [place] Comment on above: Triglyceride Guidelines: <150 Desirable 150-199 Borderline 200-499 High >499 Very high Based on AHA Guidelines for fasting triglyceride, June 2012. C-Reactive Proteinon 020 CRP [Mass/Vol] 3.9 mg/L 0 - 5 mg/L [place] CBCon 06-12-2020 Erythrocyte distribution width (RBC) [Ratio] 17.4 % High 11.8 - 14.4 % [place] Hematocrit (Bld) [Volume fraction] 31.3 % Low 36.3 - 47.1 % [place] Hemoglobin (Bld) [Mass/Vol] 9.3 g/dL Low 11.9 - 15.1 g/dL [place] Interpretation and review of laboratory results Abnormal [place] MCH (RBC) [Entitic mass] 30.1 pg 25.2 - 33.5 pg [place] MCHC (RBC) [Mass/Vol] 29.7 g/dL 28.4 - 34.8 g/dL [place] MCV (RBC) [Entitic vol] 101.3 fL 82.6 - 102.9 fL [place] Platelet mean volume (Bld) [Entitic vol] 9.5 fL 8.1 - 13.5 fL [place] Platelets (Bld) [#/Vol] 382 10*3/uL [place] RBC (Bld) [#/Vol] 3.09 10*6/uL Low 3.95 - 5.1 1 m/uL [place] WBC (Bld) [#/Vol] 0.0 10*3/uL 0.0 per 10 0 WBC [place] WBC (Bld) [#/Vol] 7.3 10*3/uL [place] Comprehensive Metabolic Pane riddhi 06-12-2020 Albumin [Mass/Vol] 2.9 g/dL Low 3.5 - 5.2 g/dL [place] Albumin/Globulin [Mass ratio] 1.1 {ratio} [place] ALP [Catalytic activity/Vol] 155 U/L High 35 - 104 U/L [place] ALT [Catalytic activity/Vol] 25 U/L 5 - 33 U/L [place] Anion gap [Moles/Vol] 10 mmol/L 9 - 17 mmol/L [place] AST [Catalytic activity/Vol] 22 U/L <32 [place] Bilirubin Ql (U) 0.24 mg/dL Low 0.3 - 1.2 mg/dL [place] Bun/Cre Ratio 23 High [place] Calcium [Mass/Vol] 8.6 mg/dL 8.6 - 10. 4 mg/dL [place] Chloride [Moles/Vol] 102 mmol/L 98 - 10 7 mmol/L [place] CO2 [Moles/Vol] 26 mmol/L 20 - 31 mmol/L [place] Creatinine [Mass/Vol] 1.03 mg/dL High 0.5 - 0.9 mg/dL [place] GFR >60 >60 mL/min [place] GFR Non- 51 mL/min Low >60 [place] Glucose [Mass/Vol] 110 mg/dL High 70 - 99 mg/dL [place] Interpretation and review of laboratory results Abnormal [place] Potassium [Moles/Vol] 4.1 mmol/L 3.7 - 5.3 mmol/L [place] Protein [Mass/Vol] 5.5 g/dL Low 6.4 - 8.3 g/dL [place] Sodium [Moles/Vol] 138 mmol/L 135 - 144 mmol/L [place] Urea nitrogen [Mass/Vol] 24 mg/dL High 8 - 23 mg/dL [place] Infectious Disease Office/Cl inic Noteon 06-12-2020 [...] Continue to follow-up with Dr. Yousif in [place] wound clinic. Problem List/Past Medical History Ongoing [...] Use:. Family History Cancer: Sibling. Lab Results Silver studies of June 06 showed a white [...] (MRI) Electronically signed by Manuel Ibarra MD 06/12/20 14:48 EDT Normal [facility] Metabolic Panelon 06-12-2020 GFR/1.73 sq M predicted among non-blacks MDRD (S/P/Bld) [Vol rate/Area] [place] Comment on above: Average GFR for 70 o r more years old: 75 mL/min/1.73sq m Chronic Kidney Disease: <60 mL/min/1.73sq m Kidney failure: <15 mL/min/1.73sq m eGFR calculated using average adult body mass. Additional eGFR calculator available at: http://www.[employer]/multiple_crcl_2012.htm Stage 1: Some kidney damage normal GFR Stage 2: Mild kidney damage GFR 60-89 Stage 3: Moderate kidney damage GFR 30-59 Stage 4: Severe kidney damage GFR 15-29 Stage 5: Severe kidney damage GFR <15 ESRD - chronic treatment by dialysis or transplant Sedimentation Rateon 020 Interpretation and review of laboratory results Abnormal [place] Sed Rate 54 mm High 0 - 20 mm [place] C-Reactive Proteinon 020 CRP [Mass/Vol] 6.5 mg/L High 0 - 5 mg/L [place] Interpretation and review of laboratory results Abnormal [place] CBCon 06-06-2020 Erythrocyte distribution width (RBC) [Ratio] 17.4 % High 11.8 - 14.4 % [place] Hematocrit (Bld) [Volume fraction] 30.6 % Low 36.3 - 47.1 % [place] Hemoglobin (Bld) [Mass/Vol] 9.0 g/dL Low 11.9 - 15.1 g/dL [place] Interpretation and review of laboratory results Abnormal [place] MCH (RBC) [Entitic mass] 30.2 pg 25.2 - 33.5 pg [place] MCHC (RBC) [Mass/Vol] 29.4 g/dL 28.4 - 34.8 g/dL [place] MCV (RBC) [Entitic vol] 102.7 fL 82.6 - 102.9 fL [place] Platelet mean volume (Bld) [Entitic vol] 9.4 fL 8.1 - 13.5 fL [place] Platelets (Bld) [#/Vol] 356 10*3/uL [place] RBC (Bld) [#/Vol] 2.98 10*6/uL Low 3.95 - 5.1 1 m/uL [place] WBC (Bld) [#/Vol] 8.0 10*3/uL [place] WBC (Bld) [#/Vol] 0.0 10*3/uL 0.0 per 10 0 WBC [place] Comprehensive Metabolic Pane riddhi 06-06-2020 Albumin [Mass/Vol] 2.9 g/dL Low 3.5 - 5.2 g/dL [place] Albumin/Globulin [Mass ratio] 1.2 {ratio} [place] ALP [Catalytic activity/Vol] 170 U/L High 35 - 104 U/L [place] ALT [Catalytic activity/Vol] 13 U/L 5 - 33 U/L [place] Anion gap [Moles/Vol] 11 mmol/L 9 - 17 mmol/L [place] AST [Catalytic activity/Vol] 18 U/L <32 [place] Bilirubin Ql (U) 0.28 mg/dL Low 0.3 - 1.2 mg/dL [place] Bun/Cre Ratio 23 High [place] Calcium [Mass/Vol] 8.5 mg/dL Low 8.6 - 10. 4 mg/dL [place] Chloride [Moles/Vol] 106 mmol/L 98 - 10 7 mmol/L [place] CO2 [Moles/Vol] 23 mmol/L 20 - 31 mmol/L [place] Creatinine [Mass/Vol] 1.01 mg/dL High 0.5 - 0.9 mg/dL [place] GFR >60 >60 mL/min [place] GFR Non- 52 mL/min Low >60 [place] Glucose [Mass/Vol] 109 mg/dL High 70 - 99 mg/dL [place] Interpretation and review of laboratory results Abnormal [place] Potassium [Moles/Vol] 3.9 mmol/L 3.7 - 5.3 mmol/L [place] Protein [Mass/Vol] 5.4 g/dL Low 6.4 - 8.3 g/dL [place] Sodium [Moles/Vol] 140 mmol/L 135 - 144 mmol/L [place] Urea nitrogen [Mass/Vol] 23 mg/dL 8 - 23 mg/dL [place] Metabolic Panelon 06-06-2020 GFR/1.73 sq M predicted among non-blacks MDRD (S/P/Bld) [Vol rate/Area] [place] Comment on above: Average GFR for 70 o r more years old: 75 mL/min/1.73sq m Chronic Kidney Disease: <60 mL/min/1.73sq m Kidney failure: <15 mL/min/1.73sq m eGFR calculated using average adult body mass. Additional eGFR calculator available at: http://www.[employer]/multiple_crcl_2012.htm Stage 1: Some kidney damage normal GFR Stage 2: Mild kidney damage GFR 60-89 Stage 3: Moderate kidney damage GFR 30-59 Stage 4: Severe kidney damage GFR 15-29 Stage 5: Severe kidney damage GFR <15 ESRD - chronic treatment by dialysis or transplant Sedimentation Rateon 020 Interpretation and review of laboratory results Abnormal [place] Sed Rate 58 mm High 0 - 20 mm [place] C-Reactive Proteinon 020 CRP [Mass/Vol] 7.6 mg/L High 0 - 5 mg/L [place] Interpretation and review of laboratory results Abnormal [place] CBC Auto Differentialon Basophils (Bld) [#/Vol] 0.00 10*3/uL [place] Basophils/100 WBC (Bld) 0 % 0 - 2 % [place] Differential Type NOT REPORTED [place] Eosinophils (Bld) [#/Vol] 0.43 10*3/uL [place] Eosinophils/100 WBC (Bld) 8 % High 1 - 4 % [place] Erythrocyte distribution width (RBC) [Ratio] 17.0 % High 11.8 - 14.4 % [place] Hematocrit (Bld) [Volume fraction] 32.6 % Low 36.3 - 47.1 % [place] Hemoglobin (Bld) [Mass/Vol] 9.4 g/dL Low 11.9 - 15.1 g/dL [place] Immature granulocytes (Bld) [#/Vol] 1 % High 0 [place] Immature granulocytes (Bld) [#/Vol] 0.05 10*3/uL [place] Interpretation and review of laboratory results Abnormal [place] Lymphocytes (Bld) [#/Vol] 2.11 10*3/uL [place] Lymphocytes/100 WBC (Bld) 39 % 24 - 43 % [place] MCH (RBC) [Entitic mass] 29.5 pg 25.2 - 33.5 pg [place] MCHC (RBC) [Mass/Vol] 28.8 g/dL 28.4 - 34.8 g/dL [place] MCV (RBC) [Entitic vol] 102.2 fL 82.6 - 102.9 fL [place] Monocytes (Bld) [#/Vol] 0.59 10*3/uL [place] Monocytes/100 WBC (Bld) 11 % 3 - 12 % [place] Morphology [place] (Bld) [Interp] HYPOCHROMASIA PRESENT [place] Platelet mean volume (Bld) [Entitic vol] 9.3 fL 8.1 - 13.5 fL [place] Platelets (Bld) [#/Vol] 398 10*3/uL [place] Platelets (Bld) [#/Vol] NOT REPORTED [place] RBC (Bld) [#/Vol] 3.19 10*6/uL Low 3.95 - 5.1 1 m/uL [place] RBC morphology finding Nom (Bld) NOT REPORTED [place] Segmented neutrophils/100 WBC (Bld) 41 % 36 - 65 % [place] Segs Absolute 2.22 [place] WBC (Bld) [#/Vol] 5.4 10*3/uL [place] WBC (Bld) [#/Vol] 0.0 10*3/uL 0.0 per 10 0 WBC [place] WBC Morphology NOT REPORTED [place] Comprehensive Metabolic Pane riddhi 05-30-2020 Albumin [Mass/Vol] 2.8 g/dL Low 3.5 - 5.2 g/dL [place] Albumin/Globulin [Mass ratio] 1.0 {ratio} [place] ALP [Catalytic activity/Vol] 147 U/L High 35 - 104 U/L [place] ALT [Catalytic activity/Vol] 7 U/L 5 - 33 U/L [place] Anion gap [Moles/Vol] 10 mmol/L 9 - 17 mmol/L [place] AST [Catalytic activity/Vol] 13 U/L <32 [place] Bilirubin Ql (U) 0.23 mg/dL Low 0.3 - 1.2 mg/dL [place] Bun/Cre Ratio 16 [place] Calcium [Mass/Vol] 8.5 mg/dL Low 8.6 - 10. 4 mg/dL [place] Chloride [Moles/Vol] 104 mmol/L 98 - 10 7 mmol/L [place] CO2 [Moles/Vol] 23 mmol/L 20 - 31 mmol/L [place] Creatinine [Mass/Vol] 1.3 mg/dL High 0.5 - 0.9 mg/dL [place] GFR 48 mL/min Low >60 [place] GFR Non- 39 mL/min Low >60 [place] Glucose [Mass/Vol] 101 mg/dL High 70 - 99 mg/dL [place] Interpretation and review of laboratory results Abnormal [place] Potassium [Moles/Vol] 4.1 mmol/L 3.7 - 5.3 mmol/L [place] Protein [Mass/Vol] 5.6 g/dL Low 6.4 - 8.3 g/dL [place] Sodium [Moles/Vol] 137 mmol/L 135 - 144 mmol/L [place] Urea nitrogen [Mass/Vol] 21 mg/dL 8 - 23 mg/dL [place] Metabolic Panelon 05-30-2020 GFR/1.73 sq M predicted among non-blacks MDRD (S/P/Bld) [Vol rate/Area] [place] Comment on above: Stage 1: Some [...] body mass. Additional eGFR calculator available at: http://www.[employer]/multiple_crcl_2012.htm Sedimentation Rateon 020 Interpretation and review of laboratory results Abnormal [place] Sed Rate 44 mm High 0 - 20 mm [place] Infectious Disease Office/Cl inic Noteon 05-29-2020 [...] lower leg Consult with wound clinic in [place]. 3. Chronic kidney disease Continue to monitor [...] Manuel Ibarra MD 05/29/20 14:48 EDT Normal [facility] C-Reactive Proteinon 020 CRP [Mass/Vol] 52.4 mg/L High 0 - 5 mg/L [place] Interpretation and review of laboratory results Abnormal [place] CBC Auto Differentialon 04-28 Basophils (Bld) [#/Vol] 0.03 10*3/uL [place] Basophils/100 WBC (Bld) 0 % 0 - 2 % [place] Differential Type NOT REPORTED [place] Eosinophils (Bld) [#/Vol] 0.27 10*3/uL [place] Eosinophils/100 WBC (Bld) 3 % 1 - 4 % [place] Erythrocyte distribution width (RBC) [Ratio] 16.5 % High 11.8 - 14.4 % [place] Hematocrit (Bld) [Volume fraction] 27.8 % Low 36.3 - 47.1 % [place] Hemoglobin (Bld) [Mass/Vol] 8.5 g/dL Low 11.9 - 15.1 g/dL [place] Immature granulocytes (Bld) [#/Vol] 0.09 10*3/uL [place] Immature granulocytes (Bld) [#/Vol] 1 % High 0 [place] Interpretation and review of laboratory results Abnormal [place] Lymphocytes (Bld) [#/Vol] 1.64 10*3/uL [place] Lymphocytes/100 WBC (Bld) 16 % Low 24 - 43 % [place] MCH (RBC) [Entitic mass] 30.1 pg 25.2 - 33.5 pg [place] MCHC (RBC) [Mass/Vol] 30.6 g/dL 28.4 - 34.8 g/dL [place] MCV (RBC) [Entitic vol] 98.6 fL 82.6 - 102.9 fL [place] Monocytes (Bld) [#/Vol] 1.02 10*3/uL [place] Monocytes/100 WBC (Bld) 10 % 3 - 12 % [place] Platelet mean volume (Bld) [Entitic vol] 9.2 fL 8.1 - 13.5 fL [place] Platelets (Bld) [#/Vol] NOT REPORTED [place] Platelets (Bld) [#/Vol] 516 10*3/uL [place] RBC (Bld) [#/Vol] 2.82 10*6/uL Low 3.95 - 5.1 1 m/uL [place] RBC morphology finding Nom (Bld) NOT REPORTED [place] Segmented neutrophils/100 WBC (Bld) 70 % High 36 - 65 % [place] Segs Absolute 7.00 [place] WBC (Bld) [#/Vol] 0.0 10*3/uL 0.0 per 10 0 WBC [place] WBC (Bld) [#/Vol] 10.1 10*3/uL [place] WBC Morphology NOT REPORTED [place] Comprehensive Metabolic Pane riddhi 05-23-2020 Albumin [Mass/Vol] 3 g/dL Low 3.5 - 5.2 g/dL [place] Albumin/Globulin [Mass ratio] 1.1 {ratio} [place] ALP [Catalytic activity/Vol] 152 U/L High 35 - 104 U/L [place] ALT [Catalytic activity/Vol] 11 U/L 5 - 33 U/L [place] Anion gap [Moles/Vol] 12 mmol/L 9 - 17 mmol/L [place] AST [Catalytic activity/Vol] 27 U/L <32 [place] Bilirubin Ql (U) 0.37 mg/dL 0.3 - 1.2 mg/dL [place] Bun/Cre Ratio 10 [place] Calcium [Mass/Vol] 8.4 mg/dL Low 8.6 - 10. 4 mg/dL [place] Chloride [Moles/Vol] 103 mmol/L 98 - 10 7 mmol/L [place] CO2 [Moles/Vol] 23 mmol/L 20 - 31 mmol/L [place] Creatinine [Mass/Vol] 1.53 mg/dL High 0.5 - 0.9 mg/dL [place] GFR 39 mL/min Low >60 [place] GFR Non- 32 mL/min Low >60 [place] Glucose [Mass/Vol] 87 mg/dL 70 - 99 mg/dL [place] Interpretation and review of laboratory results Abnormal [place] Potassium [Moles/Vol] 3.7 mmol/L 3.7 - 5.3 mmol/L [place] Protein [Mass/Vol] 5.7 g/dL Low 6.4 - 8.3 g/dL [place] Sodium [Moles/Vol] 138 mmol/L 135 - 144 mmol/L [place] Urea nitrogen [Mass/Vol] 16 mg/dL 8 - 23 mg/dL [place] Metabolic Panelon 05-23-2020 GFR/1.73 sq M predicted among non-blacks MDRD (S/P/Bld) [Vol rate/Area] [place] Comment on above: Average GFR for 70 o r more years old: 75 mL/min/1.73sq m Chronic Kidney Disease: <60 mL/min/1.73sq m Kidney failure: <15 mL/min/1.73sq m eGFR calculated using average adult body mass. Additional eGFR calculator available at: http://www.[employer]/multiple_crcl_2012.htm Stage 1: Some kidney damage normal GFR Stage 2: Mild kidney damage GFR 60-89 Stage 3: Moderate kidney damage GFR 30-59 Stage 4: Severe kidney damage GFR 15-29 Stage 5: Severe kidney damage GFR <15 ESRD - chronic treatment by dialysis or transplant Sedimentation Rateon 020 Interpretation and review of laboratory results Abnormal [place] Sed Rate 70 mm High 0 - 20 mm [place] Infectious Disease Office/Cl inic Noteon 05-22-2020 [...] Manuel Ibarra MD 05/22/20 17:13 EDT Normal [facility] CBC Auto Differentialon 08- Basophils (Bld) [#/Vol] 10*3/uL [place] Basophils/100 WBC (Bld) 0 % 0 - 2 % [place] Differential Type NOT REPORTED [place] Eosinophils (Bld) [#/Vol] 0.26 10*3/uL [place] Eosinophils/100 WBC (Bld) 3 % 1 - 4 % [place] Erythrocyte distribution width (RBC) [Ratio] 15.0 % High 11.8 - 14.4 % [place] Hematocrit (Bld) [Volume fraction] 27.8 % Low 36.3 - 47.1 % [place] Hemoglobin (Bld) [Mass/Vol] 8.4 g/dL Low 11.9 - 15.1 g/dL [place] Immature granulocytes (Bld) [#/Vol] 0.11 10*3/uL [place] Immature granulocytes (Bld) [#/Vol] 1 % High 0 [place] Interpretation and review of laboratory results Abnormal [place] Lymphocytes (Bld) [#/Vol] 1.84 10*3/uL [place] Lymphocytes/100 WBC (Bld) 19 % Low 24 - 43 % [place] MCH (RBC) [Entitic mass] 29.6 pg 25.2 - 33.5 pg [place] MCHC (RBC) [Mass/Vol] 30.2 g/dL 28.4 - 34.8 g/dL [place] MCV (RBC) [Entitic vol] 97.9 fL 82.6 - 102.9 fL [place] Monocytes (Bld) [#/Vol] 1.08 10*3/uL [place] Monocytes/100 WBC (Bld) 11 % 3 - 12 % [place] Platelet mean volume (Bld) [Entitic vol] 9.4 fL 8.1 - 13.5 fL [place] Platelets (Bld) [#/Vol] NOT REPORTED [place] Platelets (Bld) [#/Vol] 431 10*3/uL [place] RBC (Bld) [#/Vol] 2.84 10*6/uL Low 3.95 - 5.1 1 m/uL [place] RBC morphology finding Nom (Bld) NOT REPORTED [place] Segmented neutrophils/100 WBC (Bld) 66 % High 36 - 65 % [place] Segs Absolute 6.43 [place] WBC (Bld) [#/Vol] 0.0 10*3/uL 0.0 per 10 0 WBC [place] WBC (Bld) [#/Vol] 9.7 10*3/uL [place] WBC Morphology NOT REPORTED [place] Comprehensive Metabolic Pane riddhi 05-17-2020 Albumin [Mass/Vol] 2.2 g/dL Low 3.5 - 5.2 g/dL [place] Albumin/Globulin [Mass ratio] 0.7 {ratio} Low [place] ALP [Catalytic activity/Vol] 102 U/L 35 - 104 U/L [place] ALT [Catalytic activity/Vol] 7 U/L 5 - 33 U/L [place] Anion gap [Moles/Vol] 8 mmol/L Low 9 - 17 mmol/L [place] AST [Catalytic activity/Vol] 14 U/L <32 [place] Bilirubin Ql (U) 0.27 mg/dL Low 0.3 - 1.2 mg/dL [place] Bun/Cre Ratio 17 [place] Calcium [Mass/Vol] 8.4 mg/dL Low 8.6 - 10. 4 mg/dL [place] Chloride [Moles/Vol] 100 mmol/L 98 - 10 7 mmol/L [place] CO2 [Moles/Vol] 26 mmol/L 20 - 31 mmol/L [place] Creatinine [Mass/Vol] 1.01 mg/dL High 0.5 - 0.9 mg/dL [place] GFR >60 >60 mL/min [place] GFR Non- 52 mL/min Low >60 [place] Glucose [Mass/Vol] 124 mg/dL High 70 - 99 mg/dL [place] Interpretation and review of laboratory results Abnormal [place] Potassium [Moles/Vol] 4.1 mmol/L 3.7 - 5.3 mmol/L [place] Protein [Mass/Vol] 5.2 g/dL Low 6.4 - 8.3 g/dL [place] Sodium [Moles/Vol] 134 mmol/L Low 135 - 144 mmol/L [place] Urea nitrogen [Mass/Vol] 17 mg/dL 8 - 23 mg/dL [place] Metabolic Panelon 05-17-2020 GFR/1.73 sq M predicted among non-blacks MDRD (S/P/Bld) [Vol rate/Area] [place] Comment on above: Stage 1: Some [...] body mass. Additional eGFR calculator available at: http://www.[employer]/multiple_crcl_2012.htm HGB,HCTon 05-15-2020 Hematocrit (Bld) [Volume fraction] 26.2 % Low 37.0-47.0 [facility] Comment on above: Performed By: #### C BCWD, BMP, ANION, EGFR1 #### [facility] [address] [place] [address] Hemoglobin (Bld) [Mass/Vol] 8.3 gm/dl Low 12.0-16.0 [facility] Comment on above: Performed By: #### C BCWD, BMP, ANION, EGFR1 #### [facility] [address] [place] [address] Hemoglobin and hematocrit, b loodon 05-15-2020 Hematocrit (Bld) [Volume fraction] 26.2 % Low 37 - 47 % [place] Comment on above: Performed at [facility] [address] [place] [address] Hemoglobin (Bld) [Mass/Vol] 8.3 g/dL [place] Interpretation and review of laboratory results Abnormal [place] ANION GAPon 05-14-2020 Anion gap [Moles/Vol] 9.0 mmol/L Normal 8.0-16.0 [facility] Comment on above: Result Comment: ANIO N GAP = Sodium -(Chloride + CO2) Performed By: #### C BCWD, BMP, ANION, EGFR1 #### [facility] [address] [place] [address] Anion Gapon 05-14-2020 Anion gap [Moles/Vol] 9.0 mmol/L 8 - 16 meq/L [place] Comment on above: ANION GAP = Sodium - (Chloride + CO2) Performed at [facility] [address] [place] [address] 287[address] BASIC METABOL PANELon 2019 Calcium [Mass/Vol] 7.6 mg/dL Low 8.5-10.5 [facility] Comment on above: Performed By: #### C BCWD, BMP, ANION, EGFR1 #### [facility] [address] [place] [address] 11532 Chloride [Moles/Vol] 105 mmol/L Normal 98-111 [facility] Comment on above: Performed By: #### C BCWD, BMP, ANION, EGFR1 #### [facility] [address] [place] [address] 76625 CO2 [Moles/Vol] 24 mmol/L Normal 23-33 [facility] Comment on above: Performed By: #### C BCWD, BMP, ANION, EGFR1 #### [facility] [address] [place] [address] 62436 Creatinine [Mass/Vol] 1.1 mg/dL Normal 0.4-1.2 [facility] Comment on above: Performed By: #### C BCWD, BMP, ANION, EGFR1 #### [facility] [address] [place] [address] 37574 Glucose [Mass/Vol] 104 mg/dL Normal 70-108 [facility] Comment on above: Performed By: #### C BCWD, BMP, ANION, EGFR1 #### [facility] [address] [place] [address] 10227 Potassium [Moles/Vol] 4.0 mmol/L Normal 3.5-5.2 [facility] Comment on above: Performed By: #### C BCWD, BMP, ANION, EGFR1 #### [facility] [address] [place] [address] 66032 Sodium [Moles/Vol] 138 mmol/L Normal 135-145 [facility] Comment on above: Performed By: #### C BCWD, BMP, ANION, EGFR1 #### [facility] [address] [place] [address] 82475 Urea nitrogen [Mass/Vol] 18 mg/dL Normal 7-22 [facility] Comment on above: Performed By: #### C BCWD, BMP, ANION, EGFR1 #### [facility] [address] [place] [address] 29247 Basic Metabolic Panelon 04-27 Calcium [Mass/Vol] 7.6 mg/dL Low 8.5 - 10. 5 mg/dL [place] Comment on above: Performed at [facility] [address] [place] [address] 08641 Chloride [Moles/Vol] 105 mmol/L 98 - 11 1 meq/L [place] CO2 [Moles/Vol] 24 mmol/L 23 - 33 meq/L [place] Creatinine [Mass/Vol] 1.1 mg/dL 0.4 - 1.2 mg/dL [place] Glucose [Mass/Vol] 104 mg/dL 70 - 108 mg/dL [place] Potassium [Moles/Vol] 4.0 mmol/L 3.5 - 5.2 meq/L [place] Sodium [Moles/Vol] 138 mmol/L 135 - 145 meq/L [place] Urea nitrogen [Mass/Vol] 18 mg/dL 7 - 22 mg/dL [place] CBC Auto Differentialon 04-27 Basophils (Bld) [#/Vol] 0.0 10*3/uL [place] Basophils/100 WBC (Bld) 0.2 % [place] Eosinophils (Bld) [#/Vol] 0.2 10*3/uL [place] Eosinophils/100 WBC (Bld) 2 % [place] Erythrocyte distribution width (RBC) [Ratio] 15.2 % High 11.5 - 14.5 % [place] Hematocrit (Bld) [Volume fraction] 23.1 % Low 37 - 47 % [place] Hemoglobin (Bld) [Mass/Vol] 7.0 g/dL Critically low [place] Immature Grans (Abs) 0.07 [place] Immature granulocytes (Bld) [#/Vol] 0.7 % [place] Interpretation and review of laboratory results Abnormal [place] Lymphocytes (Bld) [#/Vol] 2.0 10*3/uL [place] Lymphocytes/100 WBC (Bld) 19.6 % [place] MCH (RBC) [Entitic mass] 29.4 pg 26 - 33 pg [place] MCHC (RBC) [Mass/Vol] 30.3 g/dL [place] MCV (RBC) [Entitic vol] 97.1 fL 81 - 99 fL [place] Monocytes (Bld) [#/Vol] 0.9 10*3/uL [place] Monocytes/100 WBC (Bld) 8.4 % [place] Nucleated RBC/100 WBC (Bld) [Ratio] 0 % /100 wbc [place] Pathologist Review Shona VILLAFANA [place] Platelet mean volume (Bld) [Entitic vol] 9.5 fL 9.4 - 12.4 fL [place] Platelets (Bld) [#/Vol] ADEQUATE Adequate [place] Platelets (Bld) [#/Vol] 385 10*3/uL [place] RBC (Bld) [#/Vol] 2.38 10*6/uL [place] RDW-SD 53.4 fL High 35 - 45 fL [place] Rouleaux SLIGHT Absent [place] Comment on above: Performed at [facility] [address] [place] [address] Segmented neutrophils/100 WBC (Bld) 69.1 % [place] Segs Absolute 7.0 [place] WBC (Bld) [#/Vol] 10.2 10*3/uL [place] CBC WITH DIFFERENTIALon 04-27 PATHOLOGIST REVIEWED Shona VILLAFANA Normal [facility] Comment on above: Performed By: #### C BCWD, BMP, ANION, EGFR1 #### [facility] [address] [place] [address] 89552 Platelets (Bld) [#/Vol] ADEQUATE Normal Adequate [facility] Comment on above: Performed By: #### C BCWD, BMP, ANION, EGFR1 #### [facility] [address] [place] [address] ROULEAUX SLIGHT Normal Absent [facility] Comment on above: Performed By: #### C BCWD, BMP, ANION, EGFR1 #### [facility] [address] [place] [address] 77779 ABS IMMATURE GRANS (IG) 0.07 thou/mm3 Normal 0.00-0.07 [facility] Comment on above: Performed By: #### C BCWD, BMP, ANION, EGFR1 #### [facility] [address] [place] [address] 93790 ABS NEUTROPHILS 7.0 thou/mm3 Normal 1.8-7.7 [facility] Comment on above: Performed By: #### C BCWD, BMP, ANION, EGFR1 #### [facility] [address] [place] [address] 89141 Basophils (Bld) [#/Vol] 0.0 thou/mm3 Normal 0.0-0.1 [facility] Comment on above: Performed By: #### C BCWD, BMP, ANION, EGFR1 #### [facility] [address] [place] [address] 94895 Basophils/100 WBC (Bld) 0.2 % Normal [facility] Comment on above: Performed By: #### C BCWD, BMP, ANION, EGFR1 #### [facility] [address] [place] [address] 90305 Eosinophils (Bld) [#/Vol] 0.2 thou/mm3 Normal 0.0-0.4 [facility] Comment on above: Performed By: #### C BCWD, BMP, ANION, EGFR1 #### [facility] [address] [place] [address] 26331 Eosinophils/100 WBC (Bld) 2.0 % Normal [facility] Comment on above: Performed By: #### C BCWD, BMP, ANION, EGFR1 #### [facility] [address] [place] [address] 01437 Erythrocyte distribution width (RBC) [Ratio] 15.2 % High 11.5-14.5 [facility] Comment on above: Performed By: #### C BCWD, BMP, ANION, EGFR1 #### [facility] [address] [place] [address] 83869 Hematocrit (Bld) [Volume fraction] 23.1 % Low 37.0-47.0 [facility] Comment on above: Performed By: #### C BCWD, BMP, ANION, EGFR1 #### [facility] [address] [place] [address] 98535 Hemoglobin (Bld) [Mass/Vol] 7.0 gm/dl Critically low 12.0-16.0 [facility] Comment on above: Performed By: #### C BCWD, BMP, ANION, EGFR1 #### [facility] [address] [place] [address] 56441 IMMATURE GRANS (IG) 0.7 % Normal [facility] Comment on above: Performed By: #### C BCWD, BMP, ANION, EGFR1 #### [facility] [address] [place] [address] 71510 Lymphocytes (Bld) [#/Vol] 2.0 thou/mm3 Normal 1.0-4.8 [facility] Comment on above: Performed By: #### C BCWD, BMP, ANION, EGFR1 #### [address] [address] Lymphocytes/100 WBC (Bld) 19.6 % Normal [facility] Comment on above: Performed By: #### C BCWD, BMP, ANION, EGFR1 #### [address] [address] MCH (RBC) [Entitic mass] 29.4 pg Normal 26.0-33.0 [facility] Comment on above: Performed By: #### C BCWD, BMP, ANION, EGFR1 #### [address] [address] MCHC (RBC) [Mass/Vol] 30.3 gm/dl Low 32.2-35.5 [facility] Comment on above: Performed By: #### C BCWD, BMP, ANION, EGFR1 #### [address] [address] MCV (RBC) [Entitic vol] 97.1 fL Normal 81.0-99.0 [facility] Comment on above: Performed By: #### C BCWD, BMP, ANION, EGFR1 #### [address] [address] Monocytes (Bld) [#/Vol] 0.9 thou/mm3 Normal 0.4-1.3 [facility] Comment on above: Performed By: #### C BCWD, BMP, ANION, EGFR1 #### [address] [address] Monocytes/100 WBC (Bld) 8.4 % Normal [facility] Comment on above: Performed By: #### C BCWD, BMP, ANION, EGFR1 #### [address] [address] Neutrophils/100 WBC (Bld) 69.1 % Normal [facility] Comment on above: Performed By: #### C BCWD, BMP, ANION, EGFR1 #### [address] [address] Nucleated RBC/100 WBC (Bld) [Ratio] 0 /100 wbc Normal [facility] Comment on above: Performed By: #### C BCWD, BMP, ANION, EGFR1 #### [place] [address] Platelet mean volume (Bld) [Entitic vol] 9.5 fL Normal 9.4-12.4 [facility] Comment on above: Performed By: #### C BCWD, BMP, ANION, EGFR1 #### [place] [address] Platelets (Bld) [#/Vol] 385 thou/mm3 Normal 130-400 [facility] Comment on above: Performed By: #### C BCWD, BMP, ANION, EGFR1 #### [place] [address] RBC (Bld) [#/Vol] 2.38 mill/mm3 Low 4.20-5.40 [facility] Comment on above: Performed By: #### C BCWD, BMP, ANION, EGFR1 #### [place] [address] RDW-SD 53.4 fL High 35.0-45.0 [facility] Comment on above: Performed By: #### C BCWD, BMP, ANION, EGFR1 #### [place] [address] WBC (Bld) [#/Vol] 10.2 thou/mm3 Normal 4.8-10.8 [facility] Comment on above: Performed By: #### C BCWD, BMP, ANION, EGFR1 #### [facility] [address] [address] GFR, ESTIMATEDon 05-14-2020 GFR/1.73 sq M.predicted MDRD (S/P/Bld) [Vol rate/Area] 47 ml/min/1.73m2 Abnormal [facility] Comment on above: Result Comment: Aris pelaez [...] #### C BCWD, BMP, ANION, EGFR1 #### [facility] [address] [place] [address] Glomerular Filtration Rate, Estimatedon 05-14-2020 Est, Glom Filt Rate 47 Abnormal ml/min/1 .73m 2 [place] Comment on above: Stage Description GF [...] Vol. 139 (2) pg 137-147. Performed at [facility] [address] [place] [address] 98899 HGB,HCTon 05-14-2020 Hematocrit (Bld) [Volume fraction] 27.1 % Low 37.0-47.0 [facility] Comment on above: Performed By: #### C BCWD, BMP, ANION, EGFR1 #### [facility] [address] [place] [address]353 Hemoglobin (Bld) [Mass/Vol] 8.2 gm/dl Low 12.0-16.0 [facility] Comment on above: Performed By: #### C BCWD, BMP, ANION, EGFR1 #### [facility] [address] [place] [address] 40208 Hemoglobin and hematocrit, b loodon 05-14-2020 Hematocrit (Bld) [Volume fraction] 27.1 % Low 37 - 47 % [place] Comment on above: Performed at [facility] [address] [place] [address] 51479 Hemoglobin (Bld) [Mass/Vol] 8.2 g/dL [place] Interpretation and review of laboratory results Abnormal [place] LEUKO-REDUCED RCon 0 -1 IRR LEUKO-REDUCED RC [id number] transfused Normal [facility] Comment on above: Performed By: #### C BCWD, BMP, ANION, EGFR1 #### [place] [address] Otheron 05-14-2020 Interpretation and review of laboratory results Abnormal [place] SCAN OF BLOOD SMEARon 2019 SCAN OF BLOOD SMEAR see below Normal [facility] Comment on above: Result Comment: Crit monserrat Exceeded; Scan of Differential Slide Performed Performed By: #### C BCWD, BMP, ANION, EGFR1 #### [place] [address] Scan of Blood Smearon 2019 SCAN OF BLOOD SMEAR see below [place] Comment on above: Criteria Exceeded; S can of Differential Slide Performed Performed at [facility] [address] [place] [address] TYPE AND SCREENon 05-14-2020 ABO A [place] Rh Factor Positive [place] TYPE AND SCREEN CAPTUREon ABO CAPTURE A Normal [facility] Comment on above: Performed By: #### C BCWD, BMP, ANION, EGFR1 #### [facility] [address] [place] [address] 72111 INDIRECT AUTUMN CAPTURE Negative Normal [facility] Comment on above: Performed By: #### C BCWD, BMP, ANION, EGFR1 #### [facility] [address] [place] [address] 03576 RH CAPTURE (2 D CLONES) Positive Normal [facility] Comment on above: Performed By: #### C BCWD, BMP, ANION, EGFR1 #### [facility] [address] [place] [address] 97336 XR FOOT LEFT (MIN 3 VIEWS)on 05-14-2020 [...] Rodrick Baker MD 05/14/20 Final result Normal [facility] 1. Osteoporosis. Multifocal degenerative changes. 2. Soft tissue swelling of the foot. Questionable small erosion first metatarsal head versus cortical cyst.. Cannot exclude gout. This report has been created using voice recognition software. It may contain minor errors which are inherent in voice recognition technology. Final report electronically signed by Dr. Rodrick Baker on 05/14/2020 8:45 AM [facility] [place], [place] PROCEDURE: XR FOOT LEFT (MIN 3 VIEWS) [...] the first metatarsal head. Cannot exclude gout. [facility], [place], [facility] Incoming Radiant Results From [employer] - 05/14/2020 8:47 AM EDT PROCEDURE: XR [...] Dr. Rodrick Baker on 05/14/2020 8:45 AM [place] ANION GAPon 05-13-2020 Anion gap [Moles/Vol] 10.0 mmol/L Normal 8.0-16.0 [facility] Comment on above: Result Comment: ANIO N GAP = Sodium -(Chloride + CO2) Performed By: #### C BCWD, BMP, ANION, EGFR1 #### [facility] [address] [place] [address] 25851 Anion Gapon 05-13-2020 Anion gap [Moles/Vol] 10.0 mmol/L 8 - 16 meq/L [place] Comment on above: ANION GAP = Sodium - (Chloride + CO2) Performed at [facility] [address] [place] [address] BASIC METABOL PANELon 2019 Calcium [Mass/Vol] 7.8 mg/dL Low 8.5-10.5 [facility] Comment on above: Performed By: #### C BCWD, BMP, ANION, EGFR1 #### [facility] [address] [place] [address] 99963 Chloride [Moles/Vol] 102 mmol/L Normal 98-111 [facility] Comment on above: Performed By: #### C BCWD, BMP, ANION, EGFR1 #### [facility] [employer] [address] [place] [address] 15635 CO2 [Moles/Vol] 23 mmol/L Normal 23-33 [facility] Comment on above: Performed By: #### C BCWD, BMP, ANION, EGFR1 #### [facility] [address] [place] [address] 91593 Creatinine [Mass/Vol] 1.0 mg/dL Normal 0.4-1.2 [facility] Comment on above: Performed By: #### C BCWD, BMP, ANION, EGFR1 #### [facility] [address] [place] [address] 39249 Glucose [Mass/Vol] 151 mg/dL High 70-108 [facility] Comment on above: Performed By: #### C BCWD, BMP, ANION, EGFR1 #### [facility] [address] [place] [address] 61829 Potassium [Moles/Vol] 4.0 mmol/L Normal 3.5-5.2 [facility] Comment on above: Performed By: #### C BCWD, BMP, ANION, EGFR1 #### [facility] [address] [address] Sodium [Moles/Vol] 135 mmol/L Normal 135-145 [facility] Comment on above: Performed By: #### C BCWD, BMP, ANION, EGFR1 #### [facility] [address] [place] [address] 08159 Urea nitrogen [Mass/Vol] 18 mg/dL Normal 7-22 [facility] Comment on above: Performed By: #### C BCWD, BMP, ANION, EGFR1 #### [facility] [address] [place] [address] 37033 Basic Metabolic Panelon 04-27 Calcium [Mass/Vol] 7.8 mg/dL Low 8.5 - 10. 5 mg/dL [place] Comment on above: Performed at [facility] [address] [place] [address] Chloride [Moles/Vol] 102 mmol/L 98 - 11 1 meq/L [place] CO2 [Moles/Vol] 23 mmol/L 23 - 33 meq/L [place] Creatinine [Mass/Vol] 1 mg/dL 0.4 - 1.2 mg/dL [place] Glucose [Mass/Vol] 151 mg/dL High 70 - 108 mg/dL [place] Potassium [Moles/Vol] 4.0 mmol/L 3.5 - 5.2 meq/L [place] Sodium [Moles/Vol] 135 mmol/L 135 - 145 meq/L [place] Urea nitrogen [Mass/Vol] 18 mg/dL 7 - 22 mg/dL [place] CBC Auto Differentialon 04-27 Basophils (Bld) [#/Vol] 0.0 10*3/uL [place] Basophils/100 WBC (Bld) 0.1 % [place] Eosinophils (Bld) [#/Vol] 0.1 10*3/uL [place] Eosinophils/100 WBC (Bld) 1.3 % [place] Erythrocyte distribution width (RBC) [Ratio] 15.1 % High 11.5 - 14.5 % [place] Hematocrit (Bld) [Volume fraction] 25.0 % Low 37 - 47 % [place] Hemoglobin (Bld) [Mass/Vol] 7.6 g/dL Low [place] Immature Grans (Abs) 0.12 High [place] Immature granulocytes (Bld) [#/Vol] 1 % [place] Interpretation and review of laboratory results Abnormal [place] Lymphocytes (Bld) [#/Vol] 1.5 10*3/uL [place] Lymphocytes/100 WBC (Bld) 13.4 % [place] MCH (RBC) [Entitic mass] 30.0 pg 26 - 33 pg [place] MCHC (RBC) [Mass/Vol] 30.4 g/dL Low [place], [place] MCV (RBC) [Entitic vol] 98.8 fL 81 - 99 fL [place] Monocytes (Bld) [#/Vol] 0.8 10*3/uL [place] Monocytes/100 WBC (Bld) 7.3 % [place] Nucleated RBC/100 WBC (Bld) [Ratio] 0 % /100 wbc [place] Comment on above: Performed at [facility] [address] [place] [address] Platelet mean volume (Bld) [Entitic vol] 9.5 fL 9.4 - 12.4 fL [place] Platelets (Bld) [#/Vol] 396 10*3/uL [place] RBC (Bld) [#/Vol] 2.53 10*6/uL [place] RDW-SD 54.4 fL High 35 - 45 fL [place] Segmented neutrophils/100 WBC (Bld) 76.9 % [place] Segs Absolute 8.8 [place] WBC (Bld) [#/Vol] 11.5 10*3/uL [place] CBC WITH DIFFERENTIALon 04-27 ABS IMMATURE GRANS (IG) 0.12 thou/mm3 High 0.00-0.07 [facility] Comment on above: Performed By: #### C BCWD, BMP, ANION, EGFR1 #### [facility] [employer] [address] [place] [address] 16077 ABS NEUTROPHILS 8.8 thou/mm3 High 1.8-7.7 [facility] Comment on above: Performed By: #### C BCWD, BMP, ANION, EGFR1 #### [facility] [address] [place] [address] Basophils (Bld) [#/Vol] 0.0 thou/mm3 Normal 0.0-0.1 [facility] Comment on above: Performed By: #### C BCWD, BMP, ANION, EGFR1 #### [facility] [address] [place] [address] 67885 Basophils/100 WBC (Bld) 0.1 % Normal [facility] Comment on above: Performed By: #### C BCWD, BMP, ANION, EGFR1 #### [facility] [employer] [address] [place] [address]306 Eosinophils (Bld) [#/Vol] 0.1 thou/mm3 Normal 0.0-0.4 [facility] Comment on above: Performed By: #### C BCWD, BMP, ANION, EGFR1 #### [address] [address] Eosinophils/100 WBC (Bld) 1.3 % Normal [facility] Comment on above: Performed By: #### C BCWD, BMP, ANION, EGFR1 #### [address] [address] Erythrocyte distribution width (RBC) [Ratio] 15.1 % High 11.5-14.5 [facility] Comment on above: Performed By: #### C BCWD, BMP, ANION, EGFR1 #### [address] [address] Hematocrit (Bld) [Volume fraction] 25.0 % Low 37.0-47.0 [facility] Comment on above: Performed By: #### C BCWD, BMP, ANION, EGFR1 #### [address] [address] Hemoglobin (Bld) [Mass/Vol] 7.6 gm/dl Low 12.0-16.0 [facility] Comment on above: Performed By: #### C BCWD, BMP, ANION, EGFR1 #### [address] [address] IMMATURE GRANS (IG) 1.0 % Normal [facility] Comment on above: Performed By: #### C BCWD, BMP, ANION, EGFR1 #### [address] [address] Lymphocytes (Bld) [#/Vol] 1.5 thou/mm3 Normal 1.0-4.8 [facility] Comment on above: Performed By: #### C BCWD, BMP, ANION, EGFR1 #### [address] [address] Lymphocytes/100 WBC (Bld) 13.4 % Normal [facility] Comment on above: Performed By: #### C BCWD, BMP, ANION, EGFR1 #### [address] [place] [address] MCH (RBC) [Entitic mass] 30.0 pg Normal 26.0-33.0 [facility] Comment on above: Performed By: #### C BCWD, BMP, ANION, EGFR1 #### [facility] [address] [place] [address] MCHC (RBC) [Mass/Vol] 30.4 gm/dl Low 32.2-35.5 [facility] Comment on above: Performed By: #### C BCWD, BMP, ANION, EGFR1 #### [facility] [address] [place] [address]06 MCV (RBC) [Entitic vol] 98.8 fL Normal 81.0-99.0 [facility] Comment on above: Performed By: #### C BCWD, BMP, ANION, EGFR1 #### [address] [address] Monocytes (Bld) [#/Vol] 0.8 thou/mm3 Normal 0.4-1.3 [facility] Comment on above: Performed By: #### C BCWD, BMP, ANION, EGFR1 #### [facility] [address] [place] [address] Monocytes/100 WBC (Bld) 7.3 % Normal [facility] Comment on above: Performed By: #### C BCWD, BMP, ANION, EGFR1 #### [address] [address] Neutrophils/100 WBC (Bld) 76.9 % Normal [facility] Comment on above: Performed By: #### C BCWD, BMP, ANION, EGFR1 #### [facility] [address] [place] [address] Nucleated RBC/100 WBC (Bld) [Ratio] 0 /100 wbc Normal [facility] Comment on above: Performed By: #### C BCWD, BMP, ANION, EGFR1 #### [facility] [address] [place] [address]692 Platelet mean volume (Bld) [Entitic vol] 9.5 fL Normal 9.4-12.4 [facility] Comment on above: Performed By: #### C BCWD, BMP, ANION, EGFR1 #### [place] [address] Platelets (Bld) [#/Vol] 396 thou/mm3 Normal 130-400 [facility] Comment on above: Performed By: #### C BCWD, BMP, ANION, EGFR1 #### [place] [id number] RBC (Bld) [#/Vol] 2.53 mill/mm3 Low 4.20-5.40 [facility] Comment on above: Performed By: #### C BCWD, BMP, ANION, EGFR1 #### [place] [address] RDW-SD 54.4 fL High 35.0-45.0 [facility] Comment on above: Performed By: #### C BCWD, BMP, ANION, EGFR1 #### [address] [address] WBC (Bld) [#/Vol] 11.5 thou/mm3 High 4.8-10.8 [facility] Comment on above: Performed By: #### C BCWD, BMP, ANION, EGFR1 #### [address] [address] GFR, ESTIMATEDon 05-13-2020 GFR/1.73 sq M.predicted MDRD (S/P/Bld) [Vol rate/Area] 53 ml/min/1.73m2 Abnormal [facility] Comment on above: Result Comment: Aris pelaez [...] C BCWD, BMP, ANION, EGFR1 #### [facility] [address] [place] [address] Glomerular Filtration Rate, Estimatedon 05-13-2020 Almita Savage Filt Rate 53 Abnormal ml/min/1 .73m 2 [place], [place] Comment on above: Stage Description GF [...] Vol. 139 (2) pg 137-147. Performed at [facility] [address] [place] [address] Otheron 05-13-2020 Interpretation and review of laboratory results Abnormal [place] ANION GAPon 05-12-2020 Anion gap [Moles/Vol] 8.0 mmol/L Normal 8.0-16.0 [facility] Comment on above: Result Comment: ANIO N GAP = Sodium -(Chloride + CO2) Performed By: #### B MP, ANION, EGFR1, CBCWD #### [address] [address] Anion Gapon 05-12-2020 Anion gap [Moles/Vol] 8.0 mmol/L 8 - 16 meq/L [place] Comment on above: ANION GAP = Sodium - (Chloride + CO2) Performed at [facility] [address] [place] [address] BASIC METABOL PANELon 2019 Calcium [Mass/Vol] 7.7 mg/dL Low 8.5-10.5 [facility] Comment on above: Performed By: #### B MP, ANION, EGFR1, CBCWD #### [facility] [address] [place] [address] Chloride [Moles/Vol] 105 mmol/L Normal 98-111 [facility] Comment on above: Performed By: #### B MP, ANION, EGFR1, CBCWD #### [employer] [facility] [place] [address] CO2 [Moles/Vol] 24 mmol/L Normal 23-33 [facility] Comment on above: Performed By: #### B MP, ANION, EGFR1, CBCWD #### [facility] [address] [place] [address] Creatinine [Mass/Vol] 1.1 mg/dL Normal 0.4-1.2 [facility] Comment on above: Performed By: #### B MP, ANION, EGFR1, CBCWD #### [facility] [address] [place] [address] Glucose [Mass/Vol] 123 mg/dL High 70-108 [facility] Comment on above: Performed By: #### B MP, ANION, EGFR1, CBCWD #### [facility] [address] [place] [address] Potassium [Moles/Vol] 3.9 mmol/L Normal 3.5-5.2 [facility] Comment on above: Performed By: #### B MP, ANION, EGFR1, CBCWD #### [facility] [address] [place] [address] Sodium [Moles/Vol] 137 mmol/L Normal 135-145 [facility] Comment on above: Performed By: #### B MP, ANION, EGFR1, CBCWD #### [facility] [address] [place] [address] Urea nitrogen [Mass/Vol] 20 mg/dL Normal 7-22 [facility] Comment on above: Performed By: #### B MP, ANION, EGFR1, CBCWD #### [facility] [address] [place] [address] Basic Metabolic Panelon 04-27 Calcium [Mass/Vol] 7.7 mg/dL Low 8.5 - 10. 5 mg/dL [place] Comment on above: Performed at [facility] [address] [place] [address] Chloride [Moles/Vol] 105 mmol/L 98 - 11 1 meq/L [place] CO2 [Moles/Vol] 24 mmol/L 23 - 33 meq/L [place] Creatinine [Mass/Vol] 1.1 mg/dL 0.4 - 1.2 mg/dL [place] Glucose [Mass/Vol] 123 mg/dL High 70 - 108 mg/dL [place] Potassium [Moles/Vol] 3.9 mmol/L 3.5 - 5.2 meq/L [place] Sodium [Moles/Vol] 137 mmol/L 135 - 145 meq/L [place] Urea nitrogen [Mass/Vol] 20 mg/dL 7 - 22 mg/dL [place] Bladder scanon 05-12-2020 Dora Costa 05/12/2020 1:12 PM Bladder scan was completed by Sadie Costa at 1245pm. The residual amount of 725ml was resulted to Mirza WESLEY. [place] Flora Nesbitt 05/12/2020 12:25 AM A Bladder scan was performed at 0021 . The patient's last void was at has not voided since she was straight cathed at 15:30. The residual amount was measured to be 656 ML. Report of results was given to Missy WESLEY. [place] CBC Auto Differentialon 04-27 Basophils (Bld) [#/Vol] 0.0 10*3/uL [place] Basophils/100 WBC (Bld) 0.1 % [place] Eosinophils (Bld) [#/Vol] 0.2 10*3/uL [place] Eosinophils/100 WBC (Bld) 2.4 % [place] Erythrocyte distribution width (RBC) [Ratio] 15 % High 11.5 - 14.5 % [place] Hematocrit (Bld) [Volume fraction] 24.8 % Low 37 - 47 % [place] Hemoglobin (Bld) [Mass/Vol] 7.4 g/dL Low [place] Immature Grans (Abs) 0.06 [place] Immature granulocytes (Bld) [#/Vol] 0.6 % [place] Interpretation and review of laboratory results Abnormal [place] Lymphocytes (Bld) [#/Vol] 1.4 10*3/uL [place] Lymphocytes/100 WBC (Bld) 14.9 % [place] MCH (RBC) [Entitic mass] 29.4 pg 26 - 33 pg [place] MCHC (RBC) [Mass/Vol] 29.8 g/dL [place] MCV (RBC) [Entitic vol] 98.4 fL 81 - 99 fL [place] Monocytes (Bld) [#/Vol] 0.9 10*3/uL [place] Monocytes/100 WBC (Bld) 8.9 % [place] Nucleated RBC/100 WBC (Bld) [Ratio] 0 % /100 wbc [place] Comment on above: Performed at [facility] [address] [place] [address] Platelet mean volume (Bld) [Entitic vol] 9.6 fL 9.4 - 12.4 fL [place] Platelets (Bld) [#/Vol] 370 10*3/uL [place] RBC (Bld) [#/Vol] 2.52 10*6/uL [place] RDW-SD 54 fL High 35 - 45 fL [place] Segmented neutrophils/100 WBC (Bld) 73.1 % [place] Segs Absolute 7.0 [place] WBC (Bld) [#/Vol] 9.6 10*3/uL [place] CBC WITH DIFFERENTIALon 04-27 ABS IMMATURE GRANS (IG) 0.06 thou/mm3 Normal 0.00-0.07 [facility] Comment on above: Performed By: #### B MP, ANION, EGFR1, CBCWD #### [employer] [address] [place] [address] ABS NEUTROPHILS 7.0 thou/mm3 Normal 1.8-7.7 [facility] Comment on above: Performed By: #### B MP, ANION, EGFR1, CBCWD #### [employer] [address] [place] [address] Basophils (Bld) [#/Vol] 0.0 thou/mm3 Normal 0.0-0.1 [facility] Comment on above: Performed By: #### B MP, ANION, EGFR1, CBCWD #### [address] [address] Basophils/100 WBC (Bld) 0.1 % Normal [facility] Comment on above: Performed By: #### B MP, ANION, EGFR1, CBCWD #### [address] [address] Eosinophils (Bld) [#/Vol] 0.2 thou/mm3 Normal 0.0-0.4 [facility] Comment on above: Performed By: #### B MP, ANION, EGFR1, CBCWD #### [address] [address] Eosinophils/100 WBC (Bld) 2.4 % Normal [facility] Comment on above: Performed By: #### B MP, ANION, EGFR1, CBCWD #### [address] [address] Erythrocyte distribution width (RBC) [Ratio] 15.0 % High 11.5-14.5 [facility] Comment on above: Performed By: #### B MP, ANION, EGFR1, CBCWD #### [address] [address] Hematocrit (Bld) [Volume fraction] 24.8 % Low 37.0-47.0 [facility] Comment on above: Performed By: #### B MP, ANION, EGFR1, CBCWD #### [address] [address] Hemoglobin (Bld) [Mass/Vol] 7.4 gm/dl Low 12.0-16.0 [facility] Comment on above: Performed By: #### B MP, ANION, EGFR1, CBCWD #### [address] [address] IMMATURE GRANS (IG) 0.6 % Normal [facility] Comment on above: Performed By: #### B MP, ANION, EGFR1, CBCWD #### [address] [address] Lymphocytes (Bld) [#/Vol] 1.4 thou/mm3 Normal 1.0-4.8 [facility] Comment on above: Performed By: #### B MP, ANION, EGFR1, CBCWD #### [address] [address] Lymphocytes/100 WBC (Bld) 14.9 % Normal [facility] Comment on above: Performed By: #### B MP, ANION, EGFR1, CBCWD #### [facility] [address] [place] [address] MCH (RBC) [Entitic mass] 29.4 pg Normal 26.0-33.0 [facility] Comment on above: Performed By: #### B MP, ANION, EGFR1, CBCWD #### [address] [address] MCHC (RBC) [Mass/Vol] 29.8 gm/dl Low 32.2-35.5 [facility] Comment on above: Performed By: #### B MP, ANION, EGFR1, CBCWD #### [address] [address] MCV (RBC) [Entitic vol] 98.4 fL Normal 81.0-99.0 [facility] Comment on above: Performed By: #### B MP, ANION, EGFR1, CBCWD #### [address] [address] Monocytes (Bld) [#/Vol] 0.9 thou/mm3 Normal 0.4-1.3 [facility] Comment on above: Performed By: #### B MP, ANION, EGFR1, CBCWD #### [address] [address] Monocytes/100 WBC (Bld) 8.9 % Normal [facility] Comment on above: Performed By: #### B MP, ANION, EGFR1, CBCWD #### [address] [address] Neutrophils/100 WBC (Bld) 73.1 % Normal [facility] Comment on above: Performed By: #### B MP, ANION, EGFR1, CBCWD #### [place] [address] Nucleated RBC/100 WBC (Bld) [Ratio] 0 /100 wbc Normal [facility] Comment on above: Performed By: #### B MP, ANION, EGFR1, CBCWD #### [place] [address] Platelet mean volume (Bld) [Entitic vol] 9.6 fL Normal 9.4-12.4 [facility] Comment on above: Performed By: #### B MP, ANION, EGFR1, CBCWD #### [place] [address] Platelets (Bld) [#/Vol] 370 thou/mm3 Normal 130-400 [facility] Comment on above: Performed By: #### B MP, ANION, EGFR1, CBCWD #### [place] [address] RBC (Bld) [#/Vol] 2.52 mill/mm3 Low 4.20-5.40 [facility] Comment on above: Performed By: #### B MP, ANION, EGFR1, CBCWD #### [place] [address] RDW-SD 54.0 fL High 35.0-45.0 [facility] Comment on above: Performed By: #### B MP, ANION, EGFR1, CBCWD #### [place] [address] WBC (Bld) [#/Vol] 9.6 thou/mm3 Normal 4.8-10.8 [facility] Comment on above: Performed By: #### B MP, ANION, EGFR1, CBCWD #### [place] [address] GFR, ESTIMATEDon 05-12-2020 GFR/1.73 sq M.predicted MDRD (S/P/Bld) [Vol rate/Area] 47 ml/min/1.73m2 Abnormal [facility] Comment on above: Result Comment: Stag e [...] B MP, ANION, EGFR1, CBCWD #### [facility] [facility] [employer] [address] [place] [address] Glomerular Filtration Rate, Estimatedon 05-12-2020 Est, Glom Filt Rate 47 Abnormal ml/min/1 .73m 2 [place] Comment on above: Stage Description GF [...] Vol. 139 (2) pg 137-147. Performed at [facility] [address] [place] [address] Otheron 05-12-2020 Interpretation and review of laboratory results Abnormal [place] ANION GAPon 05-11-2020 Anion gap [Moles/Vol] 11.0 mmol/L Normal 8.0-16.0 [facility] Comment on above: Result Comment: ANIO N GAP = Sodium -(Chloride + CO2) Performed By: #### C BCWD, BMP, ANION, EGFR1 #### [facility] [employer] [address] [address] Anion Gapon 05-11-2020 Anion gap [Moles/Vol] 11.0 mmol/L 8 - 16 meq/L [place] Comment on above: ANION GAP = Sodium - (Chloride + CO2) Performed at [facility] [address] [place] [address] BASIC METABOL PANELon 2019 Calcium [Mass/Vol] 8.1 mg/dL Low 8.5-10.5 [facility] Comment on above: Performed By: #### C BCWD, BMP, ANION, EGFR1 #### [facility] [address] [place] [address] Chloride [Moles/Vol] 107 mmol/L Normal 98-111 [facility] Comment on above: Performed By: #### C BCWD, BMP, ANION, EGFR1 #### [facility] [address] [place] [address] CO2 [Moles/Vol] 24 mmol/L Normal 23-33 [facility] Comment on above: Performed By: #### C BCWD, BMP, ANION, EGFR1 #### [facility] [address] [place] [address] Creatinine [Mass/Vol] 1.1 mg/dL Normal 0.4-1.2 [facility] Comment on above: Performed By: #### C BCWD, BMP, ANION, EGFR1 #### [facility] [address] [place] [address] Glucose [Mass/Vol] 131 mg/dL High 70-108 [facility] Comment on above: Performed By: #### C BCWD, BMP, ANION, EGFR1 #### [address] [address] Potassium [Moles/Vol] 4.3 mmol/L Normal 3.5-5.2 [facility] Comment on above: Performed By: #### C BCWD, BMP, ANION, EGFR1 #### [facility] [address] [place] [address] Sodium [Moles/Vol] 142 mmol/L Normal 135-145 [facility] Comment on above: Performed By: #### C BCWD, BMP, ANION, EGFR1 #### [facility] [address] [place] [address] Urea nitrogen [Mass/Vol] 23 mg/dL High 7-22 [facility] Comment on above: Performed By: #### C BCWD, BMP, ANION, EGFR1 #### [facility] [address] [place] [address] Basic Metabolic Panelon 04-27 Calcium [Mass/Vol] 8.1 mg/dL Low 8.5 - 10. 5 mg/dL [place] Comment on above: Performed at [facility] [address] [place] [address] Chloride [Moles/Vol] 107 mmol/L 98 - 11 1 meq/L [place] CO2 [Moles/Vol] 24 mmol/L 23 - 33 meq/L [place] Creatinine [Mass/Vol] 1.1 mg/dL 0.4 - 1.2 mg/dL [place] Glucose [Mass/Vol] 131 mg/dL High 70 - 108 mg/dL [place] Potassium [Moles/Vol] 4.3 mmol/L 3.5 - 5.2 meq/L [place] Sodium [Moles/Vol] 142 mmol/L 135 - 145 meq/L [place] Urea nitrogen [Mass/Vol] 23 mg/dL High 7 - 22 mg/dL [place] Bladder scanon 05-11-2020 Dora Costa 05/11/2020 3:29 PM Bladder scan was completed by Sadie Costa at 1505. The residual amount of 770ml was resulted to Franca WESLEY. [place] CBC Auto Differentialon 04-27 Basophils (Bld) [#/Vol] 0.0 10*3/uL [place] Basophils/100 WBC (Bld) 0.2 % [place] Eosinophils (Bld) [#/Vol] 0.1 10*3/uL [place] Eosinophils/100 WBC (Bld) 0.7 % [place] Erythrocyte distribution width (RBC) [Ratio] 15.5 % High 11.5 - 14.5 % [place] Hematocrit (Bld) [Volume fraction] 30.3 % Low 37 - 47 % [place] Hemoglobin (Bld) [Mass/Vol] 8.9 g/dL Low [place] Immature Grans (Abs) 0.05 [place] Immature granulocytes (Bld) [#/Vol] 0.5 % [place] Interpretation and review of laboratory results Abnormal [place] Lymphocytes (Bld) [#/Vol] 1.4 10*3/uL [place] Lymphocytes/100 WBC (Bld) 14.7 % [place] MCH (RBC) [Entitic mass] 29.5 pg 26 - 33 pg [place] MCHC (RBC) [Mass/Vol] 29.4 g/dL [place] MCV (RBC) [Entitic vol] 100.3 fL High 81 - 99 fL [place] Monocytes (Bld) [#/Vol] 0.9 10*3/uL [place] Monocytes/100 WBC (Bld) 9.6 % [place] Nucleated RBC/100 WBC (Bld) [Ratio] 0 % /100 wbc [place] Comment on above: Performed at [facility] [address] [place] [address] Platelet mean volume (Bld) [Entitic vol] 9.5 fL 9.4 - 12.4 fL [place] Platelets (Bld) [#/Vol] 445 10*3/uL [place] RBC (Bld) [#/Vol] 3.02 10*6/uL [place] RDW-SD 57.2 fL High 35 - 45 fL [place] Segmented neutrophils/100 WBC (Bld) 74.3 % [place] Segs Absolute 7.2 [place] WBC (Bld) [#/Vol] 9.7 10*3/uL [place] CBC WITH DIFFERENTIALon 04-27 ABS IMMATURE GRANS (IG) 0.05 thou/mm3 Normal 0.00-0.07 [facility] Comment on above: Performed By: #### C BCWD, BMP, ANION, EGFR1 #### [facility] [address] [place] [address] ABS NEUTROPHILS 7.2 thou/mm3 Normal 1.8-7.7 [facility] Comment on above: Performed By: #### C BCWD, BMP, ANION, EGFR1 #### [address] [address] Basophils (Bld) [#/Vol] 0.0 thou/mm3 Normal 0.0-0.1 [facility] Comment on above: Performed By: #### C BCWD, BMP, ANION, EGFR1 #### [address] [address] Basophils/100 WBC (Bld) 0.2 % Normal [facility] Comment on above: Performed By: #### C BCWD, BMP, ANION, EGFR1 #### [address] [address] Eosinophils (Bld) [#/Vol] 0.1 thou/mm3 Normal 0.0-0.4 [facility] Comment on above: Performed By: #### C BCWD, BMP, ANION, EGFR1 #### [address] [address] Eosinophils/100 WBC (Bld) 0.7 % Normal [facility] Comment on above: Performed By: #### C BCWD, BMP, ANION, EGFR1 #### [address] [address] Erythrocyte distribution width (RBC) [Ratio] 15.5 % High 11.5-14.5 [facility] Comment on above: Performed By: #### C BCWD, BMP, ANION, EGFR1 #### [address] [address] Hematocrit (Bld) [Volume fraction] 30.3 % Low 37.0-47.0 [facility] Comment on above: Performed By: #### C BCWD, BMP, ANION, EGFR1 #### [facility] [address] [place] [address] Hemoglobin (Bld) [Mass/Vol] 8.9 gm/dl Low 12.0-16.0 [facility] Comment on above: Performed By: #### C BCWD, BMP, ANION, EGFR1 #### [facility] [address] [place] [address] IMMATURE GRANS (IG) 0.5 % Normal [facility] Comment on above: Performed By: #### C BCWD, BMP, ANION, EGFR1 #### [facility] [address] [place] [address] Lymphocytes (Bld) [#/Vol] 1.4 thou/mm3 Normal 1.0-4.8 [facility] Comment on above: Performed By: #### C BCWD, BMP, ANION, EGFR1 #### [facility] [address] [place] [address] Lymphocytes/100 WBC (Bld) 14.7 % Normal [facility] Comment on above: Performed By: #### C BCWD, BMP, ANION, EGFR1 #### [address] [address] MCH (RBC) [Entitic mass] 29.5 pg Normal 26.0-33.0 [facility] Comment on above: Performed By: #### C BCWD, BMP, ANION, EGFR1 #### [facility] [address] [place] [address] MCHC (RBC) [Mass/Vol] 29.4 gm/dl Low 32.2-35.5 [facility] Comment on above: Performed By: #### C BCWD, BMP, ANION, EGFR1 #### [address] [address] MCV (RBC) [Entitic vol] 100.3 fL High 81.0-99.0 [facility] Comment on above: Performed By: #### C BCWD, BMP, ANION, EGFR1 #### [facility] [address] [place] [address] Monocytes (Bld) [#/Vol] 0.9 thou/mm3 Normal 0.4-1.3 [facility] Comment on above: Performed By: #### C BCWD, BMP, ANION, EGFR1 #### [facility] [address] [place] [address] Monocytes/100 WBC (Bld) 9.6 % Normal [facility] Comment on above: Performed By: #### C BCWD, BMP, ANION, EGFR1 #### [facility] [place] [address] Neutrophils/100 WBC (Bld) 74.3 % Normal [facility] Comment on above: Performed By: #### C BCWD, BMP, ANION, EGFR1 #### [place] [id number] Nucleated RBC/100 WBC (Bld) [Ratio] 0 /100 wbc Normal [facility] Comment on above: Performed By: #### C BCWD, BMP, ANION, EGFR1 #### [place] [address] Platelet mean volume (Bld) [Entitic vol] 9.5 fL Normal 9.4-12.4 [facility] Comment on above: Performed By: #### C BCWD, BMP, ANION, EGFR1 #### [address] [address] Platelets (Bld) [#/Vol] 445 thou/mm3 High 130-400 [facility] Comment on above: Performed By: #### C BCWD, BMP, ANION, EGFR1 #### [place] [address] RBC (Bld) [#/Vol] 3.02 mill/mm3 Low 4.20-5.40 [facility] Comment on above: Performed By: #### C BCWD, BMP, ANION, EGFR1 #### [place] [address] RDW-SD 57.2 fL High 35.0-45.0 [facility] Comment on above: Performed By: #### C BCWD, BMP, ANION, EGFR1 #### [facility] [employer] [address] [place] [address] WBC (Bld) [#/Vol] 9.7 thou/mm3 Normal 4.8-10.8 [facility] Comment on above: Performed By: #### C BCWD, BMP, ANION, EGFR1 #### [employer] [address] [place] [address] GFR, ESTIMATEDon 05-11-2020 GFR/1.73 sq M.predicted MDRD (S/P/Bld) [Vol rate/Area] 47 ml/min/1.73m2 Abnormal [facility] Comment on above: Result Comment: Stag e [...] #### C BCWD, BMP, ANION, EGFR1 #### [facility] [address] [address] Glomerular Filtration Rate, Estimatedon 05-11-2020 Est, Glom Filt Rate 47 Abnormal ml/min/1 .73m 2 [place] Comment on above: Stage Description GF [...] Vol. 139 (2) pg 137-147. Performed at [address] [address] Otheron 05-11-2020 Interpretation and review of laboratory results Abnormal [place] AER/ANAEROBIC CULTUREon 04-27 AER/ANAEROBIC CULTURE MICROBIOLOGY REPOR T [facility], [address] [place] [address], [address] PATIENT: JESÚS NOLAN LOCATION: [address] [place] [address] : 1935 AGE: 84 SEX: F ADM: 05/10/20 Att. Physician: CHELE LAGOS Order Id: [id number] Req. Physician: CHELE LAGOS Source: tissue Site: [...] 8 h 5-7 >=100 Trimethoprim/Vargas <=20 S [id number]/800mgSMX q 12h 1-2TMP/[id number]/ 97SM IV 160mgTMP/800mgSMX q 8 h9TMP/105 SMX [...] 8 h 5-7 >=100 Trimethoprim/[place] <=20 S [id number]/800mgSMX q 12h 1-2TMP/[id number]/ 97SM IV 160mgTMP/800mgSMX q 8 h9TMP/105 SMX [...] liver disease consult PDR or pharmacist. Normal [facility] COVID-19on 05-10-2020 COVID-19 BY RT-PCR NOT DETECTED Normal NOT DETECT [facility] Comment on above: Result Comment: This [...] sooner. METHODOLOGY: RT-PCR Performed By: #### C EDITA ELIZABETH, ANION, EGFR1 #### [facility] [address] [place] [address] SARS-CoV-2, PCR NOT DETECTED NOT DETECT [facility], [place] Comment on above: This test has been [...] or revoked sooner. METHODOLOGY: RT-PCR Performed at [facility] [address] [place] [address] TYPE AND SCREENon 05-10-2020 ABO A [facility] [place], [place] Rh Factor Positive [facility] [place] TYPE AND SCREEN CAPTUREon ABO CAPTURE A Normal [facility] Comment on above: Performed By: #### C GLENN, BMP, ANION, EGFR1 #### [facility] [address] [place] [address] INDIRECT AUTUMN CAPTURE Negative Normal [facility] Comment on above: Performed By: #### C BCWD, BMP, ANION, EGFR1 #### [employer] [address] [place] [address] RH CAPTURE (2 D CLONES) Positive Normal [facility] Comment on above: Performed By: #### C BCWD, BMP, ANION, EGFR1 #### [facility] [address] [place] [address] XR HIP LEFT (2-3 VIEWS)on XR HIP [...] Benson Edwards MD 05/10/20 Final result Normal [facility] [place], [facility] Incoming Radiant Results From [employer] - 05/10/2020 3:32 PM EDT PROCEDURE: XR [...] Dr Benson Edwards on 05/10/2020 3:30 PM [place] PROCEDURE: XR HIP LE FT (2-3 [...] of the arthroplasty likely related to surgery. [place] Status post left tot al hip arthroplasty. This report has been created using voice recognition software. It may contain minor errors which are inherent in voice recognition technology. Final report electronically signed by Dr Benson Edwards on 05/10/2020 3:30 PM [place] Basic Metabolic Panelon 08- Anion gap [Moles/Vol] 10 mmol/L 9 - 17 mmol/L [place] Bun/Cre Ratio 20 [place] Calcium [Mass/Vol] 8.9 mg/dL 8.6 - 10. 4 mg/dL [place] Chloride [Moles/Vol] 105 mmol/L 98 - 10 7 mmol/L [place] CO2 [Moles/Vol] 27 mmol/L 20 - 31 mmol/L [place] Creatinine [Mass/Vol] 1.12 mg/dL High 0.5 - 0.9 mg/dL [place] GFR 56 mL/min Low >60 [place] GFR Non- 47 mL/min Low >60 [place] Glucose [Mass/Vol] 110 mg/dL High 70 - 99 mg/dL [place] Interpretation and review of laboratory results Abnormal [place] Potassium [Moles/Vol] 3.8 mmol/L 3.7 - 5.3 mmol/L [place] Sodium [Moles/Vol] 142 mmol/L 135 - 144 mmol/L [place] Urea nitrogen [Mass/Vol] 22 mg/dL 8 - 23 mg/dL [place] CBCon 05-09-2020 Erythrocyte distribution width (RBC) [Ratio] 15.5 % High 11.8 - 14.4 % [place] Hematocrit (Bld) [Volume fraction] 34.3 % Low 36.3 - 47.1 % [place] Hemoglobin (Bld) [Mass/Vol] 10.2 g/dL Low 11.9 - 15.1 g/dL [place] Interpretation and review of laboratory results Abnormal [place] MCH (RBC) [Entitic mass] 29.4 pg 25.2 - 33.5 pg [place] MCHC (RBC) [Mass/Vol] 29.7 g/dL 28.4 - 34.8 g/dL [place] MCV (RBC) [Entitic vol] 98.8 fL 82.6 - 102.9 [place]L [place] Platelet mean volume (Bld) [Entitic vol] 9.4 fL 8.1 - 13.5 fL [place] Platelets (Bld) [#/Vol] 512 10*3/uL [place] RBC (Bld) [#/Vol] 3.47 10*6/uL Low 3.95 - 5.1 1 m/uL [place] WBC (Bld) [#/Vol] 0.0 10*3/uL 0.0 per 10 0 WBC [place] WBC (Bld) [#/Vol] 8.6 10*3/uL [place] Metabolic Panelon 05-09-2020 GFR/1.73 sq M predicted among non-blacks MDRD (S/P/Bld) [Vol rate/Area] [place] Comment on above: Stage 1: Some [...] body mass. Additional eGFR calculator available at: http://www.[employer]/multiple_crcl_2012.htm Microscopic Urinalysison Amorphous, UA NOT REPORTED None [place] Bacteria, UA 2+ Abnormal None [place] Casts UA NOT REPORTED /LPF [place] Crystals, UA NOT REPORTED None /HPF [place] Epithelial Cells UA 0 TO 2 [place] Interpretation and review of laboratory results Abnormal [place] Mucus, UA NOT REPORTED None [place] Other Observations UA NOT REPORTED NOT REQ. [place] RBC (U) [#/Vol] 5 TO 10 [place] Renal Epithelial, UA 0 TO 2 0 /HPF [place] Trichomonas, UA NOT REPORTED None [place] WBC, UA 50 TO 100 [place] Yeast, UA NOT REPORTED None [place] Urinalysis[place] 05-08-2020 Bilirubin Urine Negative NEGATIVE [place] Color, UA YELLOW YELLOW [place] Glucose, Ur Negative NEGATIVE [place] Interpretation and review of laboratory results Abnormal [place] Ketones Ql (U) Negative NEGATIVE [place] Leukocyte esterase Test strip Ql (U) MODERATE Abnormal NEGATIVE [place] Nitrite, Urine Negative NEGATIVE [place] pH, UA 6.5 [place] Protein (U) [Mass/Vol] TRACE Abnormal NEGATIVE [place] Specific [place], UA 1.020 [place] Turbidity UA SLIGHTLY CLOUDY Abnormal CLEAR [place] Urinalysis Comments NOT REPORTED [place] Urine Hgb 2+ Abnormal NEGATIVE [place] Urobilinogen, Urine Normal Normal [place] Basic Metabolic Panelon 08 Anion gap [Moles/Vol] 17 mmol/L 9 - 17 mmol/L [place] Bun/Cre Ratio 20 [place] Calcium [Mass/Vol] 9.2 mg/dL 8.6 - 10. 4 mg/dL [place] Chloride [Moles/Vol] 97 mmol/L Low 98 - 10 7 mmol/L [place] CO2 [Moles/Vol] 23 mmol/L 20 - 31 mmol/L [place] Creatinine [Mass/Vol] 1.29 mg/dL High 0.5 - 0.9 mg/dL [place] GFR 48 mL/min Low >60 [place] GFR Non- 40 mL/min Low >60 [place] Glucose [Mass/Vol] 209 mg/dL High 70 - 99 mg/dL [place] Interpretation and review of laboratory results Abnormal [place] Potassium [Moles/Vol] 3.7 mmol/L 3.7 - 5.3 mmol/L [place] Sodium [Moles/Vol] 137 mmol/L 135 - 144 mmol/L [place] Urea nitrogen [Mass/Vol] 26 mg/dL High 8 - 23 mg/dL [place] CBC Auto Differentialon 080 Basophils (Bld) [#/Vol] 10*3/uL [place] Basophils/100 WBC (Bld) 0 % 0 - 2 % [place] Differential Type NOT REPORTED [place] Eosinophils (Bld) [#/Vol] 0.17 10*3/uL [place] Eosinophils/100 WBC (Bld) 2 % 1 - 4 % [place] Erythrocyte distribution width (RBC) [Ratio] 15.3 % High 11.8 - 14.4 % [place] Hematocrit (Bld) [Volume fraction] 36.5 % 36.3 - 47.1 % [place] Hemoglobin (Bld) [Mass/Vol] 11.2 g/dL Low 11.9 - 15.1 g/dL [place] Immature granulocytes (Bld) [#/Vol] 1 % High 0 [place] Immature granulocytes (Bld) [#/Vol] 0.05 10*3/uL [place] Interpretation and review of laboratory results Abnormal [place] Lymphocytes (Bld) [#/Vol] 2.30 10*3/uL [place] Lymphocytes/100 WBC (Bld) 21 % Low 24 - 43 % [place] MCH (RBC) [Entitic mass] 30.3 pg 25.2 - 33.5 pg [place] MCHC (RBC) [Mass/Vol] 30.7 g/dL 28.4 - 34.8 g/dL [place] MCV (RBC) [Entitic vol] 98.6 fL 82.6 - 102.9 fL [place] Monocytes (Bld) [#/Vol] 1.01 10*3/uL [place] Monocytes/100 WBC (Bld) 9 % 3 - 12 % [place] Platelet mean volume (Bld) [Entitic vol] 9.7 fL 8.1 - 13.5 fL [place] Platelets (Bld) [#/Vol] NOT REPORTED [place] Platelets (Bld) [#/Vol] 481 10*3/uL [place] RBC (Bld) [#/Vol] 3.70 10*6/uL Low 3.95 - 5.1 1 m/uL [place] RBC morphology finding Nom (Bld) NOT REPORTED [place] Segmented neutrophils/100 WBC (Bld) 67 % High 36 - 65 % [place] Segs Absolute 7.38 [place] WBC (Bld) [#/Vol] 10.9 10*3/uL [place] WBC (Bld) [#/Vol] 0.0 10*3/uL 0.0 per 10 0 WBC [place] WBC Morphology NOT REPORTED [place] Metabolic Panelon 05-03-2020 GFR/1.73 sq M predicted among non-blacks MDRD (S/P/Bld) [Vol rate/Area] [place] Comment on above: Stage 1: Some [...] body mass. Additional eGFR calculator available at: http://www.[employer]/multiple_crcl_2012.htm CBC Auto Differentialon 03-27 Basophils (Bld) [#/Vol] 0.00 10*3/uL [place] Basophils/100 WBC (Bld) 0 % 0 - 2 % [place] Differential Type NOT REPORTED [place] Eosinophils (Bld) [#/Vol] 0.00 10*3/uL [place] Eosinophils/100 WBC (Bld) 0 % Low 1 - 4 % [place] Erythrocyte distribution width (RBC) [Ratio] 15.9 % High 11.8 - 14.4 % [place] Hematocrit (Bld) [Volume fraction] 36.3 % 36.3 - 47.1 % [place] Hemoglobin (Bld) [Mass/Vol] 11.0 g/dL Low 11.9 - 15.1 g/dL [place] Immature granulocytes (Bld) [#/Vol] 4 % High 0 [place] Immature granulocytes (Bld) [#/Vol] 0.51 10*3/uL [place] Interpretation and review of laboratory results Abnormal [place] Lymphocytes (Bld) [#/Vol] 1.40 10*3/uL [place] Lymphocytes/100 WBC (Bld) 11 % Low 24 - 43 % [place] MCH (RBC) [Entitic mass] 30.1 pg 25.2 - 33.5 pg [place] MCHC (RBC) [Mass/Vol] 30.3 g/dL 28.4 - 34.8 g/dL [place] MCV (RBC) [Entitic vol] 99.5 fL 82.6 - 102.9 fL [place] Monocytes (Bld) [#/Vol] 0.76 10*3/uL [place] Monocytes/100 WBC (Bld) 6 % 3 - 12 % [place] Morphology [place] (Bld) [Interp] Normal [place] Platelet mean volume (Bld) [Entitic vol] 10.0 fL 8.1 - 13.5 fL [place] Platelets (Bld) [#/Vol] NOT REPORTED [place] Platelets (Bld) [#/Vol] 613 10*3/uL [place] RBC (Bld) [#/Vol] 3.65 10*6/uL Low 3.95 - 5.1 1 m/uL [place] RBC morphology finding Nom (Bld) NOT REPORTED [place] Segmented neutrophils/100 WBC (Bld) 79 % High 36 - 65 % [place] Segs Absolute 10.03 High [place] WBC (Bld) [#/Vol] 0.0 10*3/uL 0.0 per 10 0 WBC [place] WBC (Bld) [#/Vol] 12.7 10*3/uL [place] WBC Morphology NOT REPORTED [place] Comprehensive Metabolic Pane riddhi 04-10-2020 Albumin [Mass/Vol] 2.4 g/dL Low 3.5 - 5.2 g/dL [place] Albumin/Globulin [Mass ratio] 0.8 {ratio} Low [place] ALP [Catalytic activity/Vol] 136 U/L High 35 - 104 U/L [place] ALT [Catalytic activity/Vol] 29 U/L 5 - 33 U/L [place] Anion gap [Moles/Vol] 11 mmol/L 9 - 17 mmol/L [place] AST [Catalytic activity/Vol] 20 U/L <32 [place] Bilirubin Ql (U) 0.20 mg/dL Low 0.3 - 1.2 mg/dL [place] Bun/Cre Ratio 20 [place] Calcium [Mass/Vol] 8.2 mg/dL Low 8.6 - 10. 4 mg/dL [place] Chloride [Moles/Vol] 100 mmol/L 98 - 10 7 mmol/L [place] CO2 [Moles/Vol] 25 mmol/L 20 - 31 mmol/L [place] Creatinine [Mass/Vol] 1.11 mg/dL High 0.5 - 0.9 mg/dL [place] GFR 57 mL/min Low >60 [place] GFR Non- 47 mL/min Low >60 [place] Glucose [Mass/Vol] 135 mg/dL High 70 - 99 mg/dL [place] Interpretation and review of laboratory results Abnormal [place] Potassium [Moles/Vol] 3.6 mmol/L Low 3.7 - 5.3 mmol/L [place] Protein [Mass/Vol] 5.6 g/dL Low 6.4 - 8.3 g/dL [place] Sodium [Moles/Vol] 136 mmol/L 135 - 144 mmol/L [place] Urea nitrogen [Mass/Vol] 22 mg/dL 8 - 23 mg/dL [place] Metabolic Panelon 04-10-2020 GFR/1.73 sq M predicted among non-blacks MDRD (S/P/Bld) [Vol rate/Area] [place] Comment on above: Stage 1: Some [...] body mass. Additional eGFR calculator available at: http://www.[employer]/multiple_crcl_2012.htm Urinalysis with Microscopico n 04-10-2020 Amorphous, UA NOT REPORTED None [place] Bacteria, UA TRACE Abnormal None [place] Bilirubin Urine Negative NEGATIVE [place] Casts UA NOT REPORTED /LPF [place] Color, UA YELLOW YELLOW [place] Crystals, UA NOT REPORTED None /HPF [place] Epithelial Cells UA 10 TO 20 [place] Glucose, Ur Negative NEGATIVE [place] Interpretation and review of laboratory results Abnormal [place] Ketones Ql (U) Negative NEGATIVE [place] Leukocyte esterase Test strip Ql (U) Negative NEGATIVE [place] Mucus, UA NOT REPORTED None [place] Nitrite, Urine Negative NEGATIVE [place] Other Observations UA NOT REPORTED NOT REQ. [place] pH, UA 7.0 [place] Protein (U) [Mass/Vol] Negative NEGATIVE [place] RBC (U) [#/Vol] 0 TO 2 [place] Renal Epithelial, UA NOT REPORTED 0 /HPF [place] Specific [place], UA 1.015 [place] Trichomonas, UA NOT REPORTED None [place] Turbidity UA CLEAR CLEAR [place] Urinalysis Comments NOT REPORTED [place] Urine Hgb Negative NEGATIVE [place] Urobilinogen, Urine Normal Normal [place] WBC, UA 0 TO 2 [place] Yeast, UA NOT REPORTED None [place] CBC auto differentialon 03-27 Basophils (Bld) [#/Vol] 0.04 10*3/uL [place] Basophils/100 WBC (Bld) 0 % 0 - 2 % [place] Differential Type NOT REPORTED [place] Eosinophils (Bld) [#/Vol] 0.24 10*3/uL [place] Eosinophils/100 WBC (Bld) 2 % 1 - 4 % [place] Erythrocyte distribution width (RBC) [Ratio] 15.6 % High 11.8 - 14.4 % [place] Hematocrit (Bld) [Volume fraction] 29.2 % Low 36.3 - 47.1 % [place] Hemoglobin (Bld) [Mass/Vol] 8.8 g/dL Low 11.9 - 15.1 g/dL [place] Immature granulocytes (Bld) [#/Vol] 0.49 10*3/uL [place] Immature granulocytes (Bld) [#/Vol] 3 % High 0 [place] Interpretation and review of laboratory results Abnormal [place] Lymphocytes (Bld) [#/Vol] 1.99 10*3/uL [place] Lymphocytes/100 WBC (Bld) 13 % Low 24 - 43 % [place] MCH (RBC) [Entitic mass] 30.1 pg 25.2 - 33.5 pg [place] MCHC (RBC) [Mass/Vol] 30.1 g/dL 28.4 - 34.8 g/dL [place] MCV (RBC) [Entitic vol] 100.0 fL 82.6 - 102.9 fL [place] Monocytes (Bld) [#/Vol] 1.02 10*3/uL [place] Monocytes/100 WBC (Bld) 7 % 3 - 12 % [place] Platelet mean volume (Bld) [Entitic vol] 10.7 fL 8.1 - 13.5 fL [place] Platelets (Bld) [#/Vol] NOT REPORTED [place] Platelets (Bld) [#/Vol] 444 10*3/uL [place] RBC (Bld) [#/Vol] 2.92 10*6/uL Low 3.95 - 5.1 1 m/uL [place] RBC morphology finding Nom (Bld) NOT REPORTED [place] Segmented neutrophils/100 WBC (Bld) 75 % High 36 - 65 % [place] Segs Absolute 11.50 [place] WBC (Bld) [#/Vol] 0.0 10*3/uL 0.0 per 10 0 WBC [place] WBC (Bld) [#/Vol] 15.3 10*3/uL [place] WBC Morphology NOT REPORTED [place] Comprehensive metabolic pane riddhi 04-06-2020 Albumin [Mass/Vol] 2.1 g/dL Low 3.5 - 5.2 g/dL [place] Albumin/Globulin [Mass ratio] 0.7 {ratio} Low [place] ALP [Catalytic activity/Vol] 139 U/L High 35 - 104 U/L [place] ALT [Catalytic activity/Vol] 67 U/L High 5 - 33 U/L [place] Anion gap [Moles/Vol] 11 mmol/L 9 - 17 mmol/L [place] AST [Catalytic activity/Vol] 61 U/L High <32 [place] Bilirubin Ql (U) 0.34 mg/dL 0.3 - 1.2 mg/dL [place] Bun/Cre Ratio 20 [place] Calcium [Mass/Vol] 8.2 mg/dL Low 8.6 - 10. 4 mg/dL [place] Chloride [Moles/Vol] 101 mmol/L 98 - 10 7 mmol/L [place] CO2 [Moles/Vol] 25 mmol/L 20 - 31 mmol/L [place] Creatinine [Mass/Vol] 1.12 mg/dL High 0.5 - 0.9 mg/dL [place] GFR 56 mL/min Low >60 [place] GFR Non- 47 mL/min Low >60 [place] Glucose [Mass/Vol] 149 mg/dL High 70 - 99 mg/dL [place] Interpretation and review of laboratory results Abnormal [place] Potassium [Moles/Vol] 3.5 mmol/L Low 3.7 - 5.3 mmol/L [place] Protein [Mass/Vol] 5.3 g/dL Low 6.4 - 8.3 g/dL [place] Sodium [Moles/Vol] 137 mmol/L 135 - 144 mmol/L [place] Urea nitrogen [Mass/Vol] 22 mg/dL 8 - 23 mg/dL [place] Metabolic Panelon 04-06-2020 GFR/1.73 sq M predicted among non-blacks MDRD (S/P/Bld) [Vol rate/Area] [place] Comment on above: Stage 1: Some [...] body mass. Additional eGFR calculator available at: http://www.[employer]/multiple_crcl_2012.htm CBC auto differentialon 03-27 Basophils (Bld) [#/Vol] 10*3/uL [place] Basophils/100 WBC (Bld) 0 % 0 - 2 % [place] Differential Type NOT REPORTED [place] Eosinophils (Bld) [#/Vol] 0.05 10*3/uL [place] Eosinophils/100 WBC (Bld) 0 % Low 1 - 4 % [place] Erythrocyte distribution width (RBC) [Ratio] 15.3 % High 11.8 - 14.4 % [place] Hematocrit (Bld) [Volume fraction] 32.0 % Low 36.3 - 47.1 % [place] Hemoglobin (Bld) [Mass/Vol] 10.0 g/dL Low 11.9 - 15.1 g/dL [place] Immature granulocytes (Bld) [#/Vol] 2 % High 0 [place] Immature granulocytes (Bld) [#/Vol] 0.40 10*3/uL [place] Interpretation and review of laboratory results Abnormal [place] Lymphocytes (Bld) [#/Vol] 1.67 10*3/uL [place] Lymphocytes/100 WBC (Bld) 9 % Low 24 - 43 % [place] MCH (RBC) [Entitic mass] 30.8 pg 25.2 - 33.5 pg [place] MCHC (RBC) [Mass/Vol] 31.3 g/dL 28.4 - 34.8 g/dL [place] MCV (RBC) [Entitic vol] 98.5 fL 82.6 - 102.9 fL [place] Monocytes (Bld) [#/Vol] 1.38 10*3/uL [place] Monocytes/100 WBC (Bld) 8 % 3 - 12 % [place] Platelet mean volume (Bld) [Entitic vol] 10.7 fL 8.1 - 13.5 fL [place] Platelets (Bld) [#/Vol] 497 10*3/uL [place] Platelets (Bld) [#/Vol] NOT REPORTED [place] RBC (Bld) [#/Vol] 3.25 10*6/uL Low 3.95 - 5.1 1 m/uL [place] RBC morphology finding Nom (Bld) NOT REPORTED [place] Segmented neutrophils/100 WBC (Bld) 81 % High 36 - 65 % [place] Segs Absolute 14.36 [place] WBC (Bld) [#/Vol] 17.9 10*3/uL [place] WBC (Bld) [#/Vol] 0.0 10*3/uL 0.0 per 10 0 WBC [place] WBC Morphology NOT REPORTED [place] COVID-19on 04-05-2020 SARS-CoV-2 [place] SARS-CoV-2, PCR [place] SARS-CoV-2, Rapid Not Detected Not Detected [place] Comment on above: Rapid NAAT: The [...] management decisions. Fact sheet for Healthcare Providers: https://www.fda.gov/media/664057/download Fact sheet for Patients: https://www.fda.gov/media/151214/download Methodology: Isothermal Nucleic Acid Amplification Source .NASOPHARYNGEAL SWAB [place] Comprehensive metabolic pane riddhi 04-05-2020 Albumin [Mass/Vol] 2.5 g/dL Low 3.5 - 5.2 g/dL [place] Albumin/Globulin [Mass ratio] 0.7 {ratio} Low [place] ALP [Catalytic activity/Vol] 137 U/L High 35 - 104 U/L [place] ALT [Catalytic activity/Vol] 76 U/L High 5 - 33 U/L [place] Anion gap [Moles/Vol] 16 mmol/L 9 - 17 mmol/L [place] AST [Catalytic activity/Vol] 73 U/L High <32 [place] Bilirubin Ql (U) 0.41 mg/dL 0.3 - 1.2 mg/dL [place] Bun/Cre Ratio 21 [place] Calcium [Mass/Vol] 8.4 mg/dL Low 8.6 - 10. 4 mg/dL [place] Chloride [Moles/Vol] 102 mmol/L 98 - 10 7 mmol/L [place] CO2 [Moles/Vol] 24 mmol/L 20 - 31 mmol/L [place] Creatinine [Mass/Vol] 1.16 mg/dL High 0.5 - 0.9 mg/dL [place] GFR 54 mL/min Low >60 [place] GFR Non- 45 mL/min Low >60 [place] Glucose [Mass/Vol] 128 mg/dL High 70 - 99 mg/dL [place] Interpretation and review of laboratory results Abnormal [place] Potassium [Moles/Vol] 3.3 mmol/L Low 3.7 - 5.3 mmol/L [place] Protein [Mass/Vol] 6.3 g/dL Low 6.4 - 8.3 g/dL [place] Sodium [Moles/Vol] 142 mmol/L 135 - 144 mmol/L [place] Urea nitrogen [Mass/Vol] 24 mg/dL High 8 - 23 mg/dL [place] Metabolic Panelon 04-05-2020 GFR/1.73 sq M predicted among non-blacks MDRD (S/P/Bld) [Vol rate/Area] [place] Comment on above: Stage 1: Some [...] body mass. Additional eGFR calculator available at: http://www.[employer]/multiple_crcl_2012.htm Basic Metabolic Panel w/ Ref tosha to MGon 04-03-2020 Anion gap [Moles/Vol] 18 mmol/L High 9 - 17 mmol/L [place] Bun/Cre Ratio 26 [place] Calcium [Mass/Vol] 9.0 mg/dL 8.6 - 10. 4 mg/dL [place] Chloride [Moles/Vol] 96 mmol/L Low 98 - 10 7 mmol/L [place] CO2 [Moles/Vol] 26 mmol/L 20 - 31 mmol/L [place] Creatinine [Mass/Vol] 1.17 mg/dL High 0.5 - 0.9 mg/dL [place] GFR 54 mL/min Low >60 [place] GFR Non- 44 mL/min Low >60 [place] Glucose [Mass/Vol] 157 mg/dL High 70 - 99 mg/dL [place] Interpretation and review of laboratory results Abnormal [place] Potassium [Moles/Vol] 3.5 mmol/L Low 3.7 - 5.3 mmol/L [place] Sodium [Moles/Vol] 140 mmol/L 135 - 144 mmol/L [place] Urea nitrogen [Mass/Vol] 30 mg/dL High 8 - 23 mg/dL [place] CBCon 04-03-2020 Erythrocyte distribution width (RBC) [Ratio] 14.9 % High 11.8 - 14.4 % [place] Hematocrit (Bld) [Volume fraction] 34.0 % Low 36.3 - 47.1 % [place] Hemoglobin (Bld) [Mass/Vol] 10.8 g/dL Low 11.9 - 15.1 g/dL [place] Interpretation and review of laboratory results Abnormal [place] MCH (RBC) [Entitic mass] 30.9 pg 25.2 - 33.5 pg [place] MCHC (RBC) [Mass/Vol] 31.8 g/dL 28.4 - 34.8 g/dL [place] MCV (RBC) [Entitic vol] 97.4 fL 82.6 - 102.9 fL [place] Platelet mean volume (Bld) [Entitic vol] 10.6 fL 8.1 - 13.5 fL [place] Platelets (Bld) [#/Vol] 455 10*3/uL [place] RBC (Bld) [#/Vol] 3.49 10*6/uL Low 3.95 - 5.1 1 m/uL [place] WBC (Bld) [#/Vol] 17.6 10*3/uL [place] WBC (Bld) [#/Vol] 0.0 10*3/uL 0.0 per 10 0 WBC [place] EKG 12 Leadon 04-03-2020 Atrial Rate 78 BPM [place] P Traer 90 degrees [place] P-R Interval 174 ms [place] Q-T Interval 426 ms [place] QRS Duration 114 ms [place] QTc Calculation (Bazett) 485 ms [place] R Tra[place] -27 degrees [place] T Traer 61 degrees [place] Urea nitrogen [Mass/Vol] Sinus rhythm with Premature atrial complexes Incomplete left bundle branch block Left ventricular hypertrophy with repolarization abnormality Abnormal ECG When compared with ECG of 02-APR-2020 14:43, Premature atrial complexes are now Present Minimal criteria for Septal infarct are no longer Present Confirmed by Sadie GRACE MD ([id number]) on 04/03/2020 7:17:15 AM [place] Ventricular Rate 78 BPM [place], M[facility] Incoming E kg Results From [facility] - 04/03/2020 7:17 AM EDT Sinus rhythm with Premature atrial complexes Incomplete left bundle branch block Left ventricular hypertrophy with repolarization abnormality Abnormal ECG When compared with ECG of 02-APR-2020 14:43, Premature atrial complexes are now Present Minimal criteria for Septal infarct are no longer Present Confirmed by Sadie GRACE MD [id number]) on 04/03/2020 7:17:15 AM [place] Lactic acid, plasmaon 2019 Lactate [Moles/Vol] 1.9 mmol/L 0.5 - 2. 2 mmol/L [place] Lactic Acid, Whole Blood NOT REPORTED 0.7 - 2.1 mmol/L [place] Magnesiumon 04-03-2020 Magnesium [Mass/Vol] 1.9 mg/dL 1.6 - 2 .6 mg/dL [place] Metabolic Panelon 04-03-2020 GFR/1.73 sq M predicted among non-blacks MDRD (S/P/Bld) [Vol rate/Area] [place] Comment on above: Stage 1: Some [...] body mass. Additional eGFR calculator available at: http://www.[employer]/multiple_crcl_2012.htm Basic Metabolic Panelon Anion gap [Moles/Vol] 16 mmol/L 9 - 17 mmol/L [place] Bun/Cre Ratio 26 [place] Calcium [Mass/Vol] 8.9 mg/dL 8.6 - 10. 4 mg/dL [place] Chloride [Moles/Vol] 92 mmol/L Low 98 - 10 7 mmol/L [place] CO2 [Moles/Vol] 29 mmol/L 20 - 31 mmol/L [place] Creatinine [Mass/Vol] 1.41 mg/dL High 0.5 - 0.9 mg/dL [place] GFR 43 mL/min Low >60 [place] GFR Non- 36 mL/min Low >60 [place] Glucose [Mass/Vol] 200 mg/dL High 70 - 99 mg/dL [place] Interpretation and review of laboratory results Abnormal [place] Potassium [Moles/Vol] 2.9 mmol/L Critically low 3.7 - 5.3 mmol/L [place] Sodium [Moles/Vol] 137 mmol/L 135 - 144 mmol/L [place] Urea nitrogen [Mass/Vol] 37 mg/dL High 8 - 23 mg/dL [place] Basic Metabolic Panel w/ Ref tosha to MGon 04-02-2020 Anion gap [Moles/Vol] 15 mmol/L 9 - 17 mmol/L [place] Bun/Cre Ratio 26 High [place] Calcium [Mass/Vol] 8.6 mg/dL 8.6 - 10. 4 mg/dL [place] Chloride [Moles/Vol] 96 mmol/L Low 98 - 10 7 mmol/L [place] CO2 [Moles/Vol] 28 mmol/L 20 - 31 mmol/L [place] Creatinine [Mass/Vol] 1.33 mg/dL High 0.5 - 0.9 mg/dL [place] GFR 46 mL/min Low >60 [place] GFR Non- 38 mL/min Low >60 [place] Glucose [Mass/Vol] 149 mg/dL High 70 - 99 mg/dL [place] Interpretation and review of laboratory results Abnormal [place] Potassium [Moles/Vol] 3.4 mmol/L Low 3.7 - 5.3 mmol/L [place] Sodium [Moles/Vol] 139 mmol/L 135 - 144 mmol/L [place] Urea nitrogen [Mass/Vol] 35 mg/dL High 8 - 23 mg/dL [place] CBC Auto Differentialon 0 Basophils (Bld) [#/Vol] 10*3/uL [place] Basophils/100 WBC (Bld) 0 % 0 - 2 % [place] Differential Type NOT REPORTED [place] Eosinophils (Bld) [#/Vol] 10*3/uL [place] Eosinophils/100 WBC (Bld) 0 % Low 1 - 4 % [place] Erythrocyte distribution width (RBC) [Ratio] 14.7 % High 11.8 - 14.4 % [place] Hematocrit (Bld) [Volume fraction] 32.6 % Low 36.3 - 47.1 % [place] Hemoglobin (Bld) [Mass/Vol] 10.5 g/dL Low 11.9 - 15.1 g/dL [place] Immature granulocytes (Bld) [#/Vol] 1 % High 0 [place] Immature granulocytes (Bld) [#/Vol] 0.15 10*3/uL [place] Interpretation and review of laboratory results Abnormal [place] Lymphocytes (Bld) [#/Vol] 1.25 10*3/uL [place] Lymphocytes/100 WBC (Bld) 7 % Low 24 - 43 % [place] MCH (RBC) [Entitic mass] 30.7 pg 25.2 - 33.5 pg [place] MCHC (RBC) [Mass/Vol] 32.2 g/dL 28.4 - 34.8 g/dL [place] MCV (RBC) [Entitic vol] 95.3 fL 82.6 - 102.9 fL [place] Monocytes (Bld) [#/Vol] 1.50 10*3/uL [place] Monocytes/100 WBC (Bld) 9 % 3 - 12 % [place] Platelet mean volume (Bld) [Entitic vol] 10.8 fL 8.1 - 13.5 fL [place] Platelets (Bld) [#/Vol] NOT REPORTED [place] Platelets (Bld) [#/Vol] 401 10*3/uL [place] RBC (Bld) [#/Vol] 3.42 10*6/uL Low 3.95 - 5.1 1 m/uL [place] RBC morphology finding Nom (Bld) NOT REPORTED [place] Segmented neutrophils/100 WBC (Bld) 83 % High 36 - 65 % [place] Segs Absolute 14.35 High [place] WBC (Bld) [#/Vol] 17.3 10*3/uL [place] WBC (Bld) [#/Vol] 0.0 10*3/uL 0.0 per 10 0 WBC [place] WBC Morphology NOT REPORTED [place] EKG 12 Leadon 04-02-2020 Atrial Rate 73 BPM [place] P Tra[place] 90 degrees [place] P-R Interval 192 ms [place] Q-T Interval 430 ms [place] QRS Duration 108 ms [place] QTc Calculation ([place]) 473 ms [place] R [place] -33 degrees [place] T [place] 50 degrees [place] Ventricular Rate 73 BPM [place] Normal sinus rhythm Left axis deviation Pulmonary disease pattern Left ventricular hypertrophy with repolarization abnormality Cannot rule out Septal infarct (cited on or before 30-JUN-2001) Abnormal ECG When compared with ECG of 11-NOV-2011 11:12, QRS duration has increased Questionable change in initial forces of Anterior leads Confirmed by Sadie GRACE MD [id number]) on 04/02/2020 4:19:24 PM [place], [facility] Incoming E kg Results From [facility] - 04/02/2020 4:19 PM EDT Normal sinus rhythm Left axis deviation Pulmonary disease pattern Left ventricular hypertrophy with repolarization abnormality Cannot rule out Septal infarct (cited on or before 30-JUN-2001) Abnormal ECG When compared with ECG of 11-NOV-2011 11:12, QRS duration has increased Questionable change in initial forces of Anterior leads Confirmed by Sadie GRACE MD ([id number]) on 04/02/2020 4:19:24 PM [place] Magnesiumon 04-02-2020 Magnesium [Mass/Vol] 2.0 mg/dL 1.6 - 2 .6 mg/dL [place] Metabolic Panelon 04-02-2020 GFR/1.73 sq M predicted among non-blacks MDRD (S/P/Bld) [Vol rate/Area] [place] Comment on above: Average GFR for 70 o r more years old: 75 mL/min/1.73sq m Chronic Kidney Disease: <60 mL/min/1.73sq m Kidney failure: <15 mL/min/1.73sq m eGFR calculated using average adult body mass. Additional eGFR calculator available at: http://[email or web address]/multiple_crcl_2012.htm Stage 1: Some kidney damage normal GFR Stage 2: Mild kidney damage GFR 60-89 Stage 3: Moderate kidney damage GFR 30-59 Stage 4: Severe kidney damage GFR 15-29 Stage 5: Severe kidney damage GFR <15 ESRD - chronic treatment by dialysis or transplant GFR/1.73 sq M predicted among non-blacks MDRD (S/P/Bld) [Vol rate/Area] [place] Comment on above: Average GFR for 70 o r more years old: 75 mL/min/1.73sq m Chronic Kidney Disease: <60 mL/min/1.73sq m Kidney failure: <15 mL/min/1.73sq m eGFR calculated using average adult body mass. Additional eGFR calculator available at: http://www.[employer]/multiple_crcl_2012.htm Stage 1: Some kidney damage normal GFR Stage 2: Mild kidney damage GFR 60-89 Stage 3: Moderate kidney damage GFR 30-59 Stage 4: Severe kidney damage GFR 15-29 Stage 5: Severe kidney damage GFR <15 ESRD - chronic treatment by dialysis or transplant Troponinon 04-02-2020 Interpretation and review of laboratory results Abnormal [place] Troponin I.cardiac [Mass/Vol] NOT REPORTED [place] Troponin T.cardiac [Mass/Vol] NOT REPORTED <0.03 ng/mL [place] Troponin, High Sensitivity 44 ng/L High 0 - 14 ng/L [place] Comment on above: High Sensitivity Troponin values cannot be compared with other Troponin methodologies. Patients with high levels of Biotin oral intake (i.e >5mg/day) may have falsely decreased Troponin levels. Samples collected within 8 hours of biotin intake may require additional information for diagnosis. Interpretation and review of laboratory results [place]normal [place] Troponin I.cardiac [Mass/Vol] NOT REPORTED [place] Troponin T.cardiac [Mass/Vol] NOT REPORTED <0.03 ng/mL [place] Troponin, High Sensitivity 47 ng/L High 0 - 14 ng/L [place] Comment on above: High Sensitivity Troponin values cannot be compared with other Troponin methodologies. Patients with high levels of Biotin oral intake (i.e >5mg/day) may have falsely decreased Troponin levels. Samples collected within 8 hours of biotin intake may require additional information for diagnosis. Urinalysis with Microscopico n 04-02-2020 Amorphous, UA NOT REPORTED None [place] Bacteria, UA 4+ Abnormal None [place] Bilirubin Urine Negative NEGATIVE [place] Casts UA NOT REPORTED /LPF [place] Color, UA YELLOW YELLOW [place] Crystals, UA NOT REPORTED None /HPF [place] Epithelial Cells UA 0 TO 2 [place] Glucose, Ur Negative NEGATIVE [place] Interpretation and review of laboratory results Abnormal [place] Ketones Ql (U) Negative NEGATIVE [place] Leukocyte esterase Test strip Ql (U) Negative NEGATIVE [place] Mucus, UA NOT REPORTED None [place] Nitrite, Urine Positive Abnormal NEGATIVE [place] Other Observations UA NOT REPORTED NOT REQ. [place] pH, UA 6.0 [place] Protein (U) [Mass/Vol] 1+ Abnormal NEGATIVE [place] RBC (U) [#/Vol] 0 TO 2 [place] Renal Epithelial, UA NOT REPORTED 0 /HPF [place] Specific [place], UA 1.025 High [place] Trichomonas, UA NOT REPORTED None [place] Turbidity UA SLIGHTLY CLOUDY Abnormal CLEAR [place] Urinalysis Comments NOT REPORTED [place] Urine Hgb 1+ Abnormal NEGATIVE [place] Urobilinogen, Urine Normal Normal [place] WBC, UA 2 TO 5 [place] Yeast, UA NOT REPORTED None [place] XR CHEST 1 VWon 04-02-2020 No acute cardiopulmonary disease. [place], [place]hpn Incoming Radiant Results From [employer] - 04/02/2020 8:01 PM EDT EXAMINATION: ONE [...] osseous abnormality. IMPRESSION: No acute cardiopulmonary disease. [place] EXAMINATION: ONE XRA Y VIEW OF [...] edema. No pneumothorax. No acute osseous abnormality. [place] CBC Auto Differentialon 02-26 Basophils (Bld) [#/Vol] 10*3/uL [place] Basophils/100 WBC (Bld) 0 % 0 - 2 % [place] Differential Type NOT REPORTED [place] Eosinophils (Bld) [#/Vol] 0.07 10*3/uL [place] Eosinophils/100 WBC (Bld) 1 % 1 - 4 % [place] Erythrocyte distribution width (RBC) [Ratio] 14.1 % 11.8 - 14.4 % [place] Hematocrit (Bld) [Volume fraction] 35.7 % Low 36.3 - 47.1 % [place] Hemoglobin (Bld) [Mass/Vol] 11.1 g/dL Low 11.9 - 15.1 g/dL [place] Immature granulocytes (Bld) [#/Vol] 0.04 10*3/uL [place] Immature granulocytes (Bld) [#/Vol] 0 % 0 [place] Interpretation and review of laboratory results Abnormal [place] Lymphocytes (Bld) [#/Vol] 1.62 10*3/uL [place] Lymphocytes/100 WBC (Bld) 14 % Low 24 - 43 % [place] MCH (RBC) [Entitic mass] 31.5 pg 25.2 - 33.5 pg [place] MCHC (RBC) [Mass/Vol] 31.1 g/dL 28.4 - 34.8 g/dL [place] MCV (RBC) [Entitic vol] 101.4 fL 82.6 - 102.9 fL [place] Monocytes (Bld) [#/Vol] 1.43 10*3/uL [place] Monocytes/100 WBC (Bld) 12 % 3 - 12 % [place] Platelet mean volume (Bld) [Entitic vol] 10.3 fL 8.1 - 13.5 fL [place] Platelets (Bld) [#/Vol] 245 10*3/uL [place] Platelets (Bld) [#/Vol] NOT REPORTED [place] RBC (Bld) [#/Vol] 3.52 10*6/uL Low 3.95 - 5.1 1 m/uL [place] RBC morphology finding Nom (Bld) NOT REPORTED [place] Segmented neutrophils/100 WBC (Bld) 73 % High 36 - 65 % [place] Segs Absolute 8.49 [place] WBC (Bld) [#/Vol] 0.0 10*3/uL 0.0 per 10 0 WBC [place] WBC (Bld) [#/Vol] 11.7 10*3/uL [place] WBC Morphology NOT REPORTED [place] Comprehensive Metabolic Pane riddhi 03-25-2020 Albumin [Mass/Vol] 3.3 g/dL Low 3.5 - 5.2 g/dL [place] Albumin/Globulin [Mass ratio] 1.1 {ratio} [place] ALP [Catalytic activity/Vol] 118 U/L High 35 - 104 U/L [place] ALT [Catalytic activity/Vol] 14 U/L 5 - 33 U/L [place] Anion gap [Moles/Vol] 14 mmol/L 9 - 17 mmol/L [place] AST [Catalytic activity/Vol] 15 U/L <32 [place] Bilirubin Ql (U) 0.39 mg/dL 0.3 - 1.2 mg/dL [place] Bun/Cre Ratio 17 [place] Calcium [Mass/Vol] 9.1 mg/dL 8.6 - 10. 4 mg/dL [place] Chloride [Moles/Vol] 101 mmol/L 98 - 10 7 mmol/L [place] CO2 [Moles/Vol] 27 mmol/L 20 - 31 mmol/L [place] Creatinine [Mass/Vol] 1.32 mg/dL High 0.5 - 0.9 mg/dL [place] GFR 47 mL/min Low >60 [place] GFR Non- 39 mL/min Low >60 [place] Glucose [Mass/Vol] 140 mg/dL High 70 - 99 mg/dL [place] Interpretation and review of laboratory results Abnormal [place] Potassium [Moles/Vol] 3.7 mmol/L 3.7 - 5.3 mmol/L [place] Protein [Mass/Vol] 6.2 g/dL Low 6.4 - 8.3 g/dL [place] Sodium [Moles/Vol] 142 mmol/L 135 - 144 mmol/L [place] Urea nitrogen [Mass/Vol] 22 mg/dL 8 - 23 mg/dL [place] Metabolic Panelon 03-25-2020 GFR/1.73 sq M predicted among non-blacks MDRD (S/P/Bld) [Vol rate/Area] [place] Comment on above: Average GFR for 70 o r more years old: 75 mL/min/1.73sq m Chronic Kidney Disease: <60 mL/min/1.73sq m Kidney failure: <15 mL/min/1.73sq m eGFR calculated using average adult body mass. Additional eGFR calculator available at: http://www.[employer]/multiple_crcl_2012.htm Stage 1: Some kidney damage normal GFR Stage 2: Mild kidney damage GFR 60-89 Stage 3: Moderate kidney damage GFR 30-59 Stage 4: Severe kidney damage GFR 15-29 Stage 5: Severe kidney damage GFR <15 ESRD - chronic treatment by dialysis or transplant APTTon 03-23-2020 aPTT Coag (Bld) [Time] 33.4 s [place] Comment on above: IV Heparin Therapy Range: 62.0-94.0 Basic Metabolic Panel w/ Ref tosha to MGon 03-23-2020 Anion gap [Moles/Vol] 16 mmol/L 9 - 17 mmol/L [place] Bun/Cre Ratio 17 [place] Calcium [Mass/Vol] 9.2 mg/dL 8.6 - 10. 4 mg/dL [place] Chloride [Moles/Vol] 99 mmol/L 98 - 10 7 mmol/L [place] CO2 [Moles/Vol] 25 mmol/L 20 - 31 mmol/L [place] Creatinine [Mass/Vol] 1.43 mg/dL High 0.5 - 0.9 mg/dL [place] GFR 43 mL/min Low >60 [place] GFR Non- 35 mL/min Low >60 [place] Glucose [Mass/Vol] 112 mg/dL High 70 - 99 mg/dL [place] Interpretation and review of laboratory results Abnormal [place] Potassium [Moles/Vol] 4.1 mmol/L 3.7 - 5.3 mmol/L [place] Sodium [Moles/Vol] 140 mmol/L 135 - 144 mmol/L [place] Urea nitrogen [Mass/Vol] 25 mg/dL High 8 - 23 mg/dL [place] CBC Auto Differentialon 02-26 Basophils (Bld) [#/Vol] 10*3/uL [place] Basophils/100 WBC (Bld) 0 % 0 - 2 % [place] Differential Type NOT REPORTED [place] Eosinophils (Bld) [#/Vol] 0.12 10*3/uL [place] Eosinophils/100 WBC (Bld) 1 % 1 - 4 % [place] Erythrocyte distribution width (RBC) [Ratio] 14.5 % High 11.8 - 14.4 % [place] Hematocrit (Bld) [Volume fraction] 38.0 % 36.3 - 47.1 % [place] Hemoglobin (Bld) [Mass/Vol] 11.4 g/dL Low 11.9 - 15.1 g/dL [place] Immature granulocytes (Bld) [#/Vol] 0 % 0 [place] Immature granulocytes (Bld) [#/Vol] 0.03 10*3/uL [place] Interpretation and review of laboratory results Abnormal [place] Lymphocytes (Bld) [#/Vol] 1.80 10*3/uL [place] Lymphocytes/100 WBC (Bld) 17 % Low 24 - 43 % [place] MCH (RBC) [Entitic mass] 31.1 pg 25.2 - 33.5 pg [place] MCHC (RBC) [Mass/Vol] 30.0 g/dL 28.4 - 34.8 g/dL [place] MCV (RBC) [Entitic vol] 103.8 fL High 82.6 - 102.9 fL [place] Monocytes (Bld) [#/Vol] 1.42 10*3/uL [place] Monocytes/100 WBC (Bld) 13 % High 3 - 12 % [place] Platelet mean volume (Bld) [Entitic vol] 10.2 fL 8.1 - 13.5 fL [place] Platelets (Bld) [#/Vol] NOT REPORTED [place] Platelets (Bld) [#/Vol] 245 10*3/uL [place] RBC (Bld) [#/Vol] 3.66 10*6/uL Low 3.95 - 5.1 1 m/uL [place] RBC morphology finding Nom (Bld) NOT REPORTED [place] Segmented neutrophils/100 WBC (Bld) 69 % High 36 - 65 % [place] Segs Absolute 7.34 [place] WBC (Bld) [#/Vol] 10.7 10*3/uL [place] WBC (Bld) [#/Vol] 0.0 10*3/uL 0.0 per 10 0 WBC [place] WBC Morphology NOT REPORTED [place] COVID-19, PCRon 06-27-2020 SARS-CoV-2 [place] SARS-CoV-2, PCR [place] SARS-CoV-2, Rapid Not Detected Not Detected [place] Comment on above: Rapid NAAT: The [...] management decisions. Fact sheet for Healthcare Providers: https://www.fda.gov/media/081000/download Fact sheet for Patients: https://www.fda.gov/media/085117/download Methodology: Isothermal Nucleic Acid Amplification Source .NASOPHARYNGEAL SWAB [place] Metabolic Panelon 03-23-2020 GFR/1.73 sq M predicted among non-blacks MDRD (S/P/Bld) [Vol rate/Area] [place] Comment on above: Average GFR for 70 o r more years old: 75 mL/min/1.73sq m Chronic Kidney Disease: <60 mL/min/1.73sq m Kidney failure: <15 mL/min/1.73sq m eGFR calculated using average adult body mass. Additional eGFR calculator available at: http://www.[employer]/multiple_crcl_2012.htm Stage 1: Some kidney damage normal GFR Stage 2: Mild kidney damage GFR 60-89 Stage 3: Moderate kidney damage GFR 30-59 Stage 4: Severe kidney damage GFR 15-29 Stage 5: Severe kidney damage GFR <15 ESRD - chronic treatment by dialysis or transplant Protime-INRon 03-23-2020 INR Coag (PPP) [Relative time] 1.2 {INR} [place] Comment on above: Non-therapeutic Range: INR = 0.9-1.2 Therapeutic Range: Moderate Anticoagulant Intensity: INR = 2.0-3.0 High Anticoagulant Intensity: INR = 2.5-3.5 Interpretation and review of laboratory results Abnormal [place] PT Coag (PPP) [Time] 14.9 s [place] XR HIP 2-3 VW W PELVIS LEFTo n 03-23-2020 Erythrocyte distribution width (RBC) [Ratio] Hardware fixation of the proximal left femoral fracture without evidence for complication. Degenerative change of the SI joints and hip joints. [place], Mhpn Incoming Radiant Results From [employer] - 03/23/2020 3:40 PM EDT EXAMINATION: ONE [...] of the SI joints and hip joints. [place] EXAMINATION: ONE XRA Y VIEW OF [...] joints. The surrounding soft tissues are unremarkable. [place] CBC Auto Differentialon 02-25 Basophils (Bld) [#/Vol] 10*3/uL [place] Basophils/100 WBC (Bld) 0 % 0 - 2 % [place] Differential Type NOT REPORTED [place] Eosinophils (Bld) [#/Vol] 0.25 10*3/uL [place] Eosinophils/100 WBC (Bld) 5 % High 1 - 4 % [place] Erythrocyte distribution width (RBC) [Ratio] 16.0 % High 11.8 - 14.4 % [place] Hematocrit (Bld) [Volume fraction] 34.2 % Low 36.3 - 47.1 % [place] Hemoglobin (Bld) [Mass/Vol] 10.0 g/dL Low 11.9 - 15.1 g/dL [place] Immature granulocytes (Bld) [#/Vol] 0.03 10*3/uL [place] Immature granulocytes (Bld) [#/Vol] 1 % High 0 [place] Interpretation and review of laboratory results Abnormal [place] Lymphocytes (Bld) [#/Vol] 1.50 10*3/uL [place] Lymphocytes/100 WBC (Bld) 30 % 24 - 43 % [place] MCH (RBC) [Entitic mass] 31.2 pg 25.2 - 33.5 pg [place] MCHC (RBC) [Mass/Vol] 29.2 g/dL 28.4 - 34.8 g/dL [place] MCV (RBC) [Entitic vol] 106.5 fL High 82.6 - 102.9 fL [place] Monocytes (Bld) [#/Vol] 0.70 10*3/uL [place] Monocytes/100 WBC (Bld) 14 % High 3 - 12 % [place] Platelet mean volume (Bld) [Entitic vol] 10.2 fL 8.1 - 13.5 fL [place] Platelets (Bld) [#/Vol] NOT REPORTED [place] Platelets (Bld) [#/Vol] 311 10*3/uL [place] RBC (Bld) [#/Vol] 3.21 10*6/uL Low 3.95 - 5.1 1 m/uL [place] RBC morphology finding Nom (Bld) NOT REPORTED [place] Segmented neutrophils/100 WBC (Bld) 50 % 36 - 65 % [place] Segs Absolute 2.44 [place] WBC (Bld) [#/Vol] 0.0 10*3/uL 0.0 per 10 0 WBC [place] WBC (Bld) [#/Vol] 4.9 10*3/uL [place] WBC Morphology NOT REPORTED [place] Comprehensive Metabolic Pane riddhi 03-12-2020 Albumin [Mass/Vol] 3.3 g/dL Low 3.5 - 5.2 g/dL [place] Albumin/Globulin [Mass ratio] 1.6 {ratio} [place] ALP [Catalytic activity/Vol] 124 U/L High 35 - 104 U/L [place] ALT [Catalytic activity/Vol] 18 U/L 5 - 33 U/L [place] Anion gap [Moles/Vol] 14 mmol/L 9 - 17 mmol/L [place] AST [Catalytic activity/Vol] 20 U/L <32 [place] Bilirubin Ql (U) 0.19 mg/dL Low 0.3 - 1.2 mg/dL [place] Bun/Cre Ratio 20 [place] Calcium [Mass/Vol] 8.6 mg/dL 8.6 - 10. 4 mg/dL [place] Chloride [Moles/Vol] 106 mmol/L 98 - 10 7 mmol/L [place] CO2 [Moles/Vol] 24 mmol/L 20 - 31 mmol/L [place] Creatinine [Mass/Vol] 1.5 mg/dL High 0.5 - 0.9 mg/dL [place] GFR 40 mL/min Low >60 [place] GFR Non- 33 mL/min Low >60 [place] Glucose [Mass/Vol] 78 mg/dL 70 - 99 mg/dL [place] Interpretation and review of laboratory results Abnormal [place] Potassium [Moles/Vol] 4.3 mmol/L 3.7 - 5.3 mmol/L [place] Protein [Mass/Vol] 5.4 g/dL Low 6.4 - 8.3 g/dL [place] Sodium [Moles/Vol] 144 mmol/L 135 - 144 mmol/L [place] Urea nitrogen [Mass/Vol] 30 mg/dL High 8 - 23 mg/dL [place] Metabolic Panelon 03-12-2020 GFR/1.73 sq M predicted among non-blacks MDRD (S/P/Bld) [Vol rate/Area] [place] Comment on above: Stage 1: Some [...] body mass. Additional eGFR calculator available at: http://www.[employer]/multiple_crcl_2012.htm CBC Auto Differentialon Basophils (Bld) [#/Vol] 10*3/uL [place] Basophils/100 WBC (Bld) 0 % 0 - 2 % [place] Differential Type NOT REPORTED [place] Eosinophils (Bld) [#/Vol] 0.25 10*3/uL [place] Eosinophils/100 WBC (Bld) 4 % 1 - 4 % [place] Erythrocyte distribution width (RBC) [Ratio] 17.5 % High 11.8 - 14.4 % [place] Hematocrit (Bld) [Volume fraction] 33.4 % Low 36.3 - 47.1 % [place] Hemoglobin (Bld) [Mass/Vol] 10.0 g/dL Low 11.9 - 15.1 g/dL [place] Immature granulocytes (Bld) [#/Vol] 0.03 10*3/uL [place] Immature granulocytes (Bld) [#/Vol] 1 % High 0 [place] Interpretation and review of laboratory results Abnormal [place] Lymphocytes (Bld) [#/Vol] 1.40 10*3/uL [place] Lymphocytes/100 WBC (Bld) 23 % Low 24 - 43 % [place] MCH (RBC) [Entitic mass] 31.1 pg 25.2 - 33.5 pg [place] MCHC (RBC) [Mass/Vol] 29.9 g/dL 28.4 - 34.8 g/dL [place] MCV (RBC) [Entitic vol] 103.7 fL High 82.6 - 102.9 fL [place] Monocytes (Bld) [#/Vol] 0.58 10*3/uL [place] Monocytes/100 WBC (Bld) 9 % 3 - 12 % [place] Platelet mean volume (Bld) [Entitic vol] 9.6 fL 8.1 - 13.5 fL [place] Platelets (Bld) [#/Vol] NOT REPORTED [place] Platelets (Bld) [#/Vol] 403 10*3/uL [place] RBC (Bld) [#/Vol] 3.22 10*6/uL Low 3.95 - 5.1 1 m/uL [place] RBC morphology finding Nom (Bld) NOT REPORTED [place] Segmented neutrophils/100 WBC (Bld) 63 % 36 - 65 % [place] Segs Absolute 3.89 [place] WBC (Bld) [#/Vol] 0.0 10*3/uL 0.0 per 10 0 WBC [place] WBC (Bld) [#/Vol] 6.2 10*3/uL [place] WBC Morphology NOT REPORTED [place] Comprehensive Metabolic Pane riddhi 02-27-2020 Albumin [Mass/Vol] 3.3 g/dL Low 3.5 - 5.2 g/dL [place] Albumin/Globulin [Mass ratio] 1.3 {ratio} [place] ALP [Catalytic activity/Vol] 145 U/L High 35 - 104 U/L [place] ALT [Catalytic activity/Vol] 40 U/L High 5 - 33 U/L [place] Anion gap [Moles/Vol] 11 mmol/L 9 - 17 mmol/L [place] AST [Catalytic activity/Vol] 34 U/L High <32 [place] Bilirubin Ql (U) 0.39 mg/dL 0.3 - 1.2 mg/dL [place] Bun/Cre Ratio 21 [place] Calcium [Mass/Vol] 8.8 mg/dL 8.6 - 10. 4 mg/dL [place] Chloride [Moles/Vol] 107 mmol/L 98 - 10 7 mmol/L [place] CO2 [Moles/Vol] 24 mmol/L 20 - 31 mmol/L [place] Creatinine [Mass/Vol] 1.32 mg/dL High 0.5 - 0.9 mg/dL [place] GFR 47 mL/min Low >60 [place] GFR Non- 39 mL/min Low >60 [place] Glucose [Mass/Vol] 103 mg/dL High 70 - 99 mg/dL [place] Interpretation and review of laboratory results Abnormal [place] Potassium [Moles/Vol] 3.8 mmol/L 3.7 - 5.3 mmol/L [place] Protein [Mass/Vol] 5.9 g/dL Low 6.4 - 8.3 g/dL [place] Sodium [Moles/Vol] 142 mmol/L 135 - 144 mmol/L [place] Urea nitrogen [Mass/Vol] 28 mg/dL High 8 - 23 mg/dL [place] Metabolic Panelon 02-27-2020 GFR/1.73 sq M predicted among non-blacks MDRD (S/P/Bld) [Vol rate/Area] [place] Comment on above: Stage 1: Some [...] body mass. Additional eGFR calculator available at: http://www.[employer]/multiple_crcl_2012.htm CBC Auto Differentialon 01-26 Basophils (Bld) [#/Vol] 10*3/uL [place] Basophils/100 WBC (Bld) 0 % 0 - 2 % [place] Differential Type NOT REPORTED [place] Eosinophils (Bld) [#/Vol] 0.33 10*3/uL [place] Eosinophils/100 WBC (Bld) 4 % 1 - 4 % [place] Erythrocyte distribution width (RBC) [Ratio] 16.7 % High 11.8 - 14.4 % [place] Hematocrit (Bld) [Volume fraction] 31.9 % Low 36.3 - 47.1 % [place] Hemoglobin (Bld) [Mass/Vol] 9.7 g/dL Low 11.9 - 15.1 g/dL [place] Immature granulocytes (Bld) [#/Vol] 0.20 10*3/uL [place] Immature granulocytes (Bld) [#/Vol] 2 % High 0 [place] Interpretation and review of laboratory results Abnormal [place] Lymphocytes (Bld) [#/Vol] 2.08 10*3/uL [place] Lymphocytes/100 WBC (Bld) 23 % Low 24 - 43 % [place] MCH (RBC) [Entitic mass] 30.8 pg 25.2 - 33.5 pg [place] MCHC (RBC) [Mass/Vol] 30.4 g/dL 28.4 - 34.8 g/dL [place] MCV (RBC) [Entitic vol] 101.3 fL 82.6 - 102.9 fL [place] Monocytes (Bld) [#/Vol] 1.09 10*3/uL [place] Monocytes/100 WBC (Bld) 12 % 3 - 12 % [place] Platelet mean volume (Bld) [Entitic vol] 9.8 fL 8.1 - 13.5 fL [place] Platelets (Bld) [#/Vol] NOT REPORTED [place] Platelets (Bld) [#/Vol] 468 10*3/uL [place] RBC (Bld) [#/Vol] 3.15 10*6/uL Low 3.95 - 5.1 1 m/uL [place] RBC morphology finding Nom (Bld) NOT REPORTED [place] Segmented neutrophils/100 WBC (Bld) 59 % 36 - 65 % [place] Segs Absolute 5.43 [place] WBC (Bld) [#/Vol] 0.0 10*3/uL 0.0 per 10 0 WBC [place] WBC (Bld) [#/Vol] 9.2 10*3/uL [place] WBC Morphology NOT REPORTED [place] Comprehensive Metabolic Pane riddhi 02-20-2020 Albumin [Mass/Vol] 3.3 g/dL Low 3.5 - 5.2 g/dL [place] Albumin/Globulin [Mass ratio] 1.2 {ratio} [place] ALP [Catalytic activity/Vol] 158 U/L High 35 - 104 U/L [place] ALT [Catalytic activity/Vol] 101 U/L High 5 - 33 U/L [place] Anion gap [Moles/Vol] 15 mmol/L 9 - 17 mmol/L [place] AST [Catalytic activity/Vol] 100 U/L High <32 [place] Bilirubin Ql (U) 0.43 mg/dL 0.3 - 1.2 mg/dL [place] Bun/Cre Ratio 23 [place] Calcium [Mass/Vol] 8.6 mg/dL 8.6 - 10. 4 mg/dL [place] Chloride [Moles/Vol] 102 mmol/L 98 - 10 7 mmol/L [place] CO2 [Moles/Vol] 22 mmol/L 20 - 31 mmol/L [place] Creatinine [Mass/Vol] 1.46 mg/dL High 0.5 - 0.9 mg/dL [place] GFR 42 mL/min Low >60 [place] GFR Non- 34 mL/min Low >60 [place] Glucose [Mass/Vol] 98 mg/dL 70 - 99 mg/dL [place] Interpretation and review of laboratory results Abnormal [place] Potassium [Moles/Vol] 3.6 mmol/L Low 3.7 - 5.3 mmol/L [place] Protein [Mass/Vol] 6.0 g/dL Low 6.4 - 8.3 g/dL [place] Sodium [Moles/Vol] 139 mmol/L 135 - 144 mmol/L [place] Urea nitrogen [Mass/Vol] 33 mg/dL High 8 - 23 mg/dL [place] Metabolic Panelon 02-20-2020 GFR/1.73 sq M predicted among non-blacks MDRD (S/P/Bld) [Vol rate/Area] [place] Comment on above: Stage 1: Some [...] body mass. Additional eGFR calculator available at: http://www.[employer]/multiple_crcl_2012.htm C Bldon 02-17-2020 C Bld -- - Final No growth at 5 days. Normal [facility] Comment on above: Performed By: #### E GFR #### [address] [address] C Bld Blood cultures x 2 - Final No growth at 5 days. Normal [facility] Comment on above: Performed By: #### F OL #### [address] [address] .eGFRon 02-15-2020 eGFR AA 40 mL/min/1.73m? Low >=60 [facility] Comment on above: Result Comment: Resu lt = 0-14.9 mL/min/1.73 m2 Kidney failure or Dialysis Result = 15-29 mL/min/1.73 m2 Severe decrease in GFR Result = 30-59 mL/min/1.73 m2 Moderate decrease in GFR Result >= 60 mL/min/1.73 m2 Normal or increased GFR Performed By: #### T IBC #### [address] [address] eGFR Non-AA 33 mL/min/1.73m? Low >=60 [facility] Comment on above: Result Comment: Resu [...] dosing. Performed By: #### T IBC #### [address] [address] CBCon 02-15-2020 Erythrocyte distribution width (RBC) [Ratio] 14.7 % Normal 11.6-14.8 [facility] Comment on above: Performed By: #### F OL #### [address] [address] Hematocrit (Bld) [Volume fraction] 28.4 % Low 36.0-46.0 [facility] Comment on above: Performed By: #### F OL #### [address] [address] Hemoglobin (Bld) [Mass/Vol] 9.3 g/dL Low 12.0-16.0 [facility] Comment on above: Performed By: #### F OL #### [address] [address] MCH (RBC) [Entitic mass] 30.7 pg Normal 27.0-35.0 [facility] Comment on above: Performed By: #### F OL #### [address] [address] MCHC (RBC) [Mass/Vol] 32.8 % Normal 31.0-37.0 [facility] Comment on above: Performed By: #### F OL #### [address] [address] MCV (RBC) [Entitic vol] 93.4 fL Normal 80.0-100.0 B [facility] Comment on above: Performed By: #### F OL #### [address] [address] Platelet mean volume (Bld) [Entitic vol] 8.4 fL Normal 6.7-10.6 [facility] Comment on above: Performed By: #### F OL #### [address] [address] Platelets (Bld) [#/Vol] 246 x10*3/mcL Normal 150-350 [facility] Comment on above: Performed By: #### F OL #### [address] [address] RBC (Bld) [#/Vol] 3.04 x10*6/mcL Low 3.80-5.20 [facility] Comment on above: Performed By: #### F OL #### [address] [address] WBC (Bld) [#/Vol] 8.2 x10*3/mcL Normal 4.5-11.0 [facility] Comment on above: Performed By: #### F OL #### [address] [address] Magnesiumon 02-15-2020 Magnesium [Mass/Vol] 2.1 mg/dL Normal 1.7-2.4 [facility] Comment on above: Performed By: #### T IBC #### [address] [address] Nephrology Progress Noteon 0 02-15-2020 Nephrology Progress [...] acute pulmonary process. Signed By: Manolo KUMAR, [facility] Computed Tomography No qualifying data available. Ultrasound No qualifying data available. Magnetic Resonance Imaging No qualifying data available. Nuclear Medicine No qualifying data available. Physical Exam Lungs: [Clear, non-labored respiration]. Heart: [Normal rate, regular rhythm, no edema]. Abdomen: [Soft, non-tender, non-distended, normal bowel sounds]. Mental Status:[Alert and oriented x3]. Medications Inpatient acetaminophen, 650 mg, Oral, q6hr, PRN acetaminophen, 1000 mg, Oral, [id number] Times ALPRAZolam, 0.25 mg, Oral, HS (at bedtime) calcitriol, 0.25 mcg, Oral, Mo/We/Fr Dulcolax Laxative, 10 mg, Oral, Daily, PRN Haldol, 2.5 mg, 0.5 mL, IM, [id number] Times, PRN hydrALAZINE, 25 mg, Oral, TID Lovenox, 30 mg, 0.3 mL, Subcutaneous, q24hr meclizine, 25 mg, Oral, TID, PRN MiraLax, 17 g, 1 EA, Oral, Daily naloxone, 0.4 mg, 1 mL, IV Push, q2min, PRN Harrison 5 mg-325 mg oral tablet, 1 tabs, [...] by Dr. Jordan on 02/09 Discharged to [facility] for rehab post surgery. 6. Intertrochanteric fracture [...] Hearing loss sensory, bilateral Discharge planning to [facility]. Follow-up with Dr. Chew on discharge. Electronically signed by Kelly MOTLEY Stephanie Hensleyn 02/15/20 15:03 EDT The patient was personally evaluated by myself and the case was discussed with Stephanie Mendoza CNP. I agree with the above noted assessment and plans. Patient has continued to do well with stable advanced kidney disease as well as hypertension management. Follow-up in the clinic several weeks from now Electronically signed by Marianela NIELSONDilan Juliarominalamar 02/15/20 23:31 EDT [facility] Progress Note-Nurseon 2019 Progress Note-Nurse Nurse Serg [...] by Serg Lai 02/15/20 13:31 EDT Normal [facility] Provider Letteron 02-15-2020 Provider Letter Justino Dhaliwal DO [address] [place] [address] Re: Jessú Nolan Date of Visit: 02/09/2020 Dear Justino Dhaliwal, I had the pleasure of taking care of your patient in the hospital. I have included my documentation for your review. Please let me know if you have any questions or concerns. Sincerely, TOLU Whipple Providers: The following document(s) were included in the letter: February 15, 2020 10:09:39 EDT - (02/15/2020) Hospitalist Discharge Summary Note Normal [facility] Renal Panelon 02-15-2020 Albumin [Mass/Vol] 3.0 g/dL Low 3.2-4.9 [facility] Comment on above: Result Comment: [facility] Laboratory updated the methodology used for albumin testing on 05/04/18. Albumin measurement was performed using a bromcresol purple dye-binding assay. Performed By: #### E GFR #### [address] [address] Anion gap [Moles/Vol] 15 mmol/L Normal 7-17 [facility] Comment on above: Performed By: #### E GFR #### [address] [address] Calcium [Mass/Vol] 8.2 mg/dL Low 8.5-10.3 [facility] Comment on above: Performed By: #### E GFR #### [address] [address] Chloride [Moles/Vol] 103 mmol/L Normal 98-110 [facility] Comment on above: Performed By: #### E GFR #### [address] [address] CO2 [Moles/Vol] 25 mmol/L Normal 22-32 [facility] Comment on above: Performed By: #### E GFR #### [address] [address] Creatinine [Mass/Vol] 1.51 mg/dL High 0.44-1.03 [facility] Comment on above: Performed By: #### E GFR #### [address] [address] Glucose [Mass/Vol] 105 mg/dL High 70-99 [facility] Comment on above: Performed By: #### E GFR #### [address] [address] Phosphate [Mass/Vol] 3.4 mg/dL Normal 2.5-4.6 [facility] Comment on above: Performed By: #### E GFR #### [address] [address] Potassium [Moles/Vol] 4.4 mmol/L Normal 3.4-4.8 [facility] Comment on above: Performed By: #### E GFR #### [address] [address] Sodium [Moles/Vol] 139 mmol/L Normal 133-142 [facility] Comment on above: Performed By: #### E GFR #### [address] [address] Urea nitrogen [Mass/Vol] 26 mg/dL Normal 8-26 [facility] Comment on above: Performed By: #### E GFR #### [address] [address] Urea nitrogen/Creatinine [Mass ratio] 17.2 mg/mg Normal 10.0-20.0 [facility] Comment on above: Performed By: #### E GFR #### [address] [address] [id number] RNA PCR Send O uton 02-15-2020 [id number] RNA by PCR Not Detected Normal Not Detected [facility] Comment on above: Order Comment: utmcf or nh placement in a couple days Result Comment: Miss ing Attachment Chartable Reference Lab Reports Can be viewed in source system Performed By: #### E GFR #### [address] [address] .eGFRon 02-14-2020 eGFR Non-AA 37 mL/min/1.73m? Low >=60 [facility] Comment on above: Result Comment: Resu [...] dosing. Performed By: #### E GFR #### [address] [address] eGFR AA 45 mL/min/1.73m? Low >=60 [facility] Comment on above: Result Comment: Resu lt = 0-14.9 mL/min/1.73 m2 Kidney failure or Dialysis Result = 15-29 mL/min/1.73 m2 Severe decrease in GFR Result = 30-59 mL/min/1.73 m2 Moderate decrease in GFR Result >= 60 mL/min/1.73 m2 Normal or increased GFR Performed By: #### E GFR #### [address] [address] CBCon 02-14-2020 Erythrocyte distribution width (RBC) [Ratio] 14.5 % Normal 11.6-14.8 [facility] Comment on above: Performed By: #### T IBC #### [address] [address] Hematocrit (Bld) [Volume fraction] 26.8 % Low 36.0-46.0 [facility] Comment on above: Performed By: #### T IBC #### [address] [address] Hemoglobin (Bld) [Mass/Vol] 8.8 g/dL Low 12.0-16.0 [facility] Comment on above: Performed By: #### T IBC #### [address] [address] MCH (RBC) [Entitic mass] 30.6 pg Normal 27.0-35.0 [facility] Comment on above: Performed By: #### T IBC #### [address] [address] MCHC (RBC) [Mass/Vol] 33.0 % Normal 31.0-37.0 [facility] Comment on above: Performed By: #### T IBC #### [address] [address] MCV (RBC) [Entitic vol] 92.8 fL Normal 80.0-100.0 [facility] Comment on above: Performed By: #### T IBC #### [address] [address] Platelet mean volume (Bld) [Entitic vol] 8.7 fL Normal 6.7-10.6 [facility] Comment on above: Performed By: #### T IBC #### [address] [address] Platelets (Bld) [#/Vol] 190 x10*3/mcL Normal 150-350 [facility] Comment on above: Performed By: #### T IBC #### [address] [address] RBC (Bld) [#/Vol] 2.89 x10*6/mcL Low 3.80-5.20 [facility] Comment on above: Performed By: #### T IBC #### [address] [address] WBC (Bld) [#/Vol] 8.6 x10*3/mcL Normal 4.5-11.0 [facility] Comment on above: Performed By: #### T IBC #### [address] [address] Magnesiumon 02-14-2020 Magnesium [Mass/Vol] 2.2 mg/dL Normal 1.7-2.4 [facility] Comment on above: Performed By: #### P HOS #### [address] [address] Nephrology Progress Noteon 0 02-14-2020 Nephrology Progress [...] Oral, q6hr, PRN acetaminophen, 1000 mg, Oral, d0om-Pabmjrho Times ALPRAZolam, 0.25 mg, Oral, HS (at bedtime) calcitriol, 0.25 mcg, Oral, Mo/We/Fr Dulcolax Laxative, 10 mg, Oral, Daily, PRN Haldol, 2.5 mg, 0.5 mL, IM, [id number]-[id number] Times, PRN hydrALAZINE, 25 mg, Oral, TID Lovenox, 30 mg, 0.3 mL, Subcutaneous, q24hr meclizine, 25 mg, Oral, TID, PRN naloxone, 0.4 mg, 1 mL, IV Push, q2min, PRN Harrison 5 mg-325 mg oral tablet, 1 tabs, [...] Hearing loss sensory, bilateral Possible discharge to [facility] testing pending. Follow-up with Dr. Chew on [...] Dilan Chew DO 02/14/20 22:40 EDT Normal [facility] Orthopedic Progress Noteon 0 02-14-2020 Orthopedic Progress [...] acute pulmonary process. Signed By: Manolo KUMAR, [facility] Computed Tomography No qualifying data available. Ultrasound [...] Oral, q6hr, PRN acetaminophen, 1000 mg, Oral, f9bh-Gzcjqxum Times ALPRAZolam, 0.25 mg, Oral, HS (at bedtime) calcitriol, 0.25 mcg, Oral, Mo// Dulcolax Laxative, 10 mg, Oral, Daily, PRN Haldol, 2.5 mg, 0.5 mL, IM, [id number]-Edyoijwn Times, PRN hydrALAZINE, 25 mg, Oral, TID Lovenox, 30 mg, 0.3 mL, Subcutaneous, q24hr meclizine, 25 mg, Oral, TID, PRN MiraLax, 17 g, 1 EA, Oral, Daily naloxone, 0.4 mg, 1 mL, IV Push, q2min, PRN Harrison 5 mg-325 mg oral tablet, 1 tabs, [...] Naman Edmond PA-C 02/14/20 19:09 EDT Normal [facility] Renal Panelon 02-14-2020 Albumin [Mass/Vol] 2.9 g/dL Low 3.2-4.9 [facility] Comment on above: Result Comment: [facility] Laboratory updated the methodology used for albumin testing on 05/04/18. Albumin measurement was performed using a bromcresol purple dye-binding assay. Performed By: #### E GFR #### [facility] [address] [place] [address] Anion gap [Moles/Vol] 14 mmol/L Normal 7-17 [facility] Comment on above: Performed By: #### E GFR #### [address] [address] Calcium [Mass/Vol] 8.1 mg/dL Low 8.5-10.3 [facility] Comment on above: Performed By: #### E GFR #### [address] [address] Chloride [Moles/Vol] 103 mmol/L Normal 98-110 [facility] Comment on above: Performed By: #### E GFR #### [address] [address] CO2 [Moles/Vol] 25 mmol/L Normal 22-32 [facility] Comment on above: Performed By: #### E GFR #### [address] [address] Creatinine [Mass/Vol] 1.37 mg/dL High 0.44-1.03 [facility] Comment on above: Performed By: #### E GFR #### [address] [address] Glucose [Mass/Vol] 115 mg/dL High 70-99 [facility] Comment on above: Performed By: #### E GFR #### [address] [address] Phosphate [Mass/Vol] 2.0 mg/dL Low 2.5-4.6 [facility] Comment on above: Performed By: #### E GFR #### [address] [address] Potassium [Moles/Vol] 3.9 mmol/L Normal 3.4-4.8 [facility] Comment on above: Performed By: #### E GFR #### [address] [address] Sodium [Moles/Vol] 138 mmol/L Normal 133-142 [facility] Comment on above: Performed By: #### E GFR #### [address] [address] Urea nitrogen [Mass/Vol] 20 mg/dL Normal 8-26 [facility] Comment on above: Performed By: #### E GFR #### [address] [address] Urea nitrogen/Creatinine [Mass ratio] 14.6 mg/mg Normal 10.0-20.0 [facility] Comment on above: Performed By: #### E GFR #### [address] [address] .UA Microscp Aon 02-13-2020 UA Mucus Present Abnormal Absent [facility] Comment on above: Performed By: #### C [id number] #### [address] [address] UA RBC Quant 0 /HPF Normal 0-5 [facility] Comment on above: Performed By: #### C [id number] #### [address] [address] UA WBC Quant 0 /HPF Normal 0-5 [facility] Comment on above: Performed By: #### C [id number] #### [address] [address] .eGFRon 02-13-2020 eGFR Non-AA 30 mL/min/1.73m? Low >=60 [facility] Comment on above: Order Comment: Order [...] dosing. Performed By: #### E GFR #### [address] [address] eGFR AA 36 mL/min/1.73m? Low >=60 [facility] Comment on above: Order Comment: Order added by Discern rule Result Comment: Resu lt = 0-14.9 mL/min/1.73 m2 Kidney failure or Dialysis Result = 15-29 mL/min/1.73 m2 Severe decrease in GFR Result = 30-59 mL/min/1.73 m2 Moderate decrease in GFR Result >= 60 mL/min/1.73 m2 Normal or increased GFR Performed By: #### E GFR #### [address] [address] CBCon 02-13-2020 Erythrocyte distribution width (RBC) [Ratio] 14.5 % Normal 11.6-14.8 [facility] Comment on above: Performed By: #### E GFR #### [address] [address] Hematocrit (Bld) [Volume fraction] 27.6 % Low 36.0-46.0 [facility] Comment on above: Performed By: #### E GFR #### [address] [address] Hemoglobin (Bld) [Mass/Vol] 9.1 g/dL Low 12.0-16.0 [facility] Comment on above: Performed By: #### E GFR #### [address] [address] MCH (RBC) [Entitic mass] 30.7 pg Normal 27.0-35.0 [facility] Comment on above: Performed By: #### E GFR #### [address] [address] MCHC (RBC) [Mass/Vol] 32.9 % Normal 31.0-37.0 [facility] Comment on above: Performed By: #### E GFR #### [address] [address] MCV (RBC) [Entitic vol] 93.2 fL Normal 80.0-100.0 [facility] Comment on above: Performed By: #### E GFR #### [address] [address] Platelet mean volume (Bld) [Entitic vol] 9.0 fL Normal 6.7-10.6 [facility] Comment on above: Performed By: #### E GFR #### [address] [address] Platelets (Bld) [#/Vol] 169 x10*3/mcL Normal 150-350 [facility] Comment on above: Performed By: #### E GFR #### [address] [address] RBC (Bld) [#/Vol] 2.96 x10*6/mcL Low 3.80-5.20 [facility] Comment on above: Performed By: #### E GFR #### [address] [address] WBC (Bld) [#/Vol] 9.8 x10*3/mcL Normal 4.5-11.0 [facility] Comment on above: Performed By: #### E GFR #### [address] [address] [employer] Progress Noteon 02-13-2020 [employer] Progress Note Second IMM letter delivered to patient. Electronically signed by Kasie Flowers 02/13/20 09:58 EDT Normal [facility] Magnesiumon 02-13-2020 Magnesium [Mass/Vol] 2.3 mg/dL Normal 1.7-2.4 [facility] Comment on above: Performed By: #### E GFR #### [address] [address] Nephrology Progress Noteon 0 02-13-2020 Nephrology Progress [...] acute pulmonary process. Signed By: Manolo KUMAR, [facility] XR Femur 2 or More Views Left [...] mg, 1 mL, IV Push, q2min, PRN Harrison 5 mg-325 mg oral tablet, 1 tabs, [...] of her antihypertensive medications. Electronically signed by Jesus Chew DOzacharydavid Hadley 02/13/20 23:09 EDT Normal [facility] Orthopedic Progress Noteon 0 02-13-2020 Orthopedic Progress [...] Oral, q6hr, PRN acetaminophen, 1000 mg, Oral, r8fm-Kszaowku Times ALPRAZolam, 0.25 mg, Oral, HS (at bedtime) calcitriol, 0.25 mcg, Oral, Mo//Fr Dulcolax Laxative, 10 mg, Oral, Daily, PRN Haldol, 2.5 mg, 0.5 mL, IM, c5ta-Lbeifrkv Times, PRN hydrALAZINE, 25 mg, Oral, TID Lovenox, 30 mg, 0.3 mL, Subcutaneous, q24hr meclizine, 25 mg, Oral, TID, PRN naloxone, 0.4 mg, 1 mL, IV Push, q2min, PRN Harrison 5 mg-325 mg oral tablet, 1 tabs, [...] prophylaxis, and PT. [facility] standpoint. Follow-up at [facility] with Dr. Jordan in 2 weeks. 3. Chronic kidney disease 4. Electrolyte abnormality 5. Renal osteodystrophy 6. Hypertension 7. Status post hip surgery 8. Laceration of head 9. Hearing loss sensory, bilateral 10. Anemia Electronically signed by Mayito WATSONNaman 02/13/20 17:38 EDT Normal [facility] Renal Panelon 02-13-2020 Albumin [Mass/Vol] 3.4 g/dL Normal 3.2-4.9 [facility] Comment on above: Result Comment: [facility] Laboratory updated the methodology used for albumin testing on 05/04/18. Albumin measurement was performed using a bromcresol purple dye-binding assay. Performed By: #### R ENAL #### [address] [address] Anion gap [Moles/Vol] 13 mmol/L Normal 7-17 [facility] Comment on above: Performed By: #### R ENAL #### [address] [address] Calcium [Mass/Vol] 8.0 mg/dL Low 8.5-10.3 [facility] Comment on above: Performed By: #### R ENAL #### [address] [address] Chloride [Moles/Vol] 105 mmol/L Normal 98-110 [facility] Comment on above: Performed By: #### R ENAL #### [address] [address] CO2 [Moles/Vol] 26 mmol/L Normal 22-32 [facility] Comment on above: Performed By: #### R ENAL #### [address] [address] Creatinine [Mass/Vol] 1.64 mg/dL High 0.44-1.03 [facility] Comment on above: Performed By: #### R ENAL #### [address] [address] Glucose [Mass/Vol] 114 mg/dL High 70-99 [facility] Comment on above: Performed By: #### R ENAL #### [address] [address] Phosphate [Mass/Vol] 2.8 mg/dL Normal 2.5-4.6 [facility] Comment on above: Performed By: #### R ENAL #### [address] [address] Potassium [Moles/Vol] 4.2 mmol/L Normal 3.4-4.8 [facility] Comment on above: Performed By: #### R ENAL #### [address] [address] Sodium [Moles/Vol] 140 mmol/L Normal 133-142 [facility] Comment on above: Performed By: #### R ENAL #### [address] [address] Urea nitrogen [Mass/Vol] 23 mg/dL Normal 8-26 [facility] Comment on above: Performed By: #### R ENAL #### [address] [address] Urea nitrogen/Creatinine [Mass ratio] 14.0 mg/mg Normal 10.0-20.0 [facility] Comment on above: Performed By: #### R ENAL #### [address] [address] UA w Culture if Indon 2019 Color (U) Yellow Normal [facility] Comment on above: Performed By: #### T IBC #### [address] [address] Glucose (U) [Mass/Vol] Negative Normal [facility] Comment on above: Performed By: #### T IBC #### [address] [address] Ketones Ql (U) Negative Normal Negative [facility] Comment on above: Performed By: #### T IBC #### [address] [place] [address] UA Blood Moderate Abnormal Negative [facility] Comment on above: Performed By: #### T IBC #### [address] [place] [address] UA Clarity Hazy Normal [facility] Comment on above: Performed By: #### T IBC #### [address] [place] [address] UA Leukocyte Esterase Negative Normal Negative [facility] Comment on above: Performed By: #### T IBC #### [address] [place] [address] UA Nitrite Negative Normal Negative [facility] Comment on above: Performed By: #### T IBC #### [address] [place] [address] UA pH 5.0 Normal 4.5 - 7.8 [facility] Comment on above: Performed By: #### T IBC #### [address] [place] [address] UA Protein 30 mg/dL Abnormal Negative [facility] Comment on above: Performed By: #### T IBC #### [address] [place] [address] UA Source Clean Catch Normal [facility] Comment on above: Performed By: #### T IBC #### [address] [place] [address] UA Spec Grav 1.014 Normal 1.003-1.035 [facility] Comment on above: Performed By: #### T IBC #### [address] [place] [address] UA Urobilinogen 0.2 mg/dL Normal 0.2 - 1.0 [facility] Comment on above: Performed By: #### T IBC #### [address] [place] [address] Urobilinogen Qn (U) Negative Normal Negative [facility] Comment on above: Performed By: #### T IBC #### [address] [address] .eGFRon 02-12-2020 eGFR AA 44 mL/min/1.73m? Low >=60 [facility] Comment on above: Order Comment: Order added by Discern rule Result Comment: Resu lt = 0-14.9 mL/min/1.73 m2 Kidney failure or Dialysis Result = 15-29 mL/min/1.73 m2 Severe decrease in GFR Result = 30-59 mL/min/1.73 m2 Moderate decrease in GFR Result >= 60 mL/min/1.73 m2 Normal or increased GFR Performed By: #### E GFR #### [place] [id number] eGFR Non-AA 36 mL/min/1.73m? Low >=60 [facility] Comment on above: Order Comment: Order [...] dosing. Performed By: #### E GFR #### [address] [address] CBCon 02-12-2020 Erythrocyte distribution width (RBC) [Ratio] 14.3 % Normal 11.6-14.8 [facility] Comment on above: Performed By: #### T IBC #### [address] [address] Hematocrit (Bld) [Volume fraction] 28.6 % Low 36.0-46.0 [facility] Comment on above: Performed By: #### T IBC #### [address] [address] Hemoglobin (Bld) [Mass/Vol] 9.4 g/dL Low 12.0-16.0 [facility] Comment on above: Performed By: #### T IBC #### [address] [address] MCH (RBC) [Entitic mass] 31.0 pg Normal 27.0-35.0 [facility] Comment on above: Performed By: #### T IBC #### [address] [address] MCHC (RBC) [Mass/Vol] 33.0 % Normal 31.0-37.0 [facility] Comment on above: Performed By: #### T IBC #### [address] [address] MCV (RBC) [Entitic vol] 93.9 fL Normal 80.0-100.0 [facility] Comment on above: Performed By: #### T IBC #### [address] [address] Platelet mean volume (Bld) [Entitic vol] 8.7 fL Normal 6.7-10.6 [facility] Comment on above: Performed By: #### T IBC #### [address] [address] Platelets (Bld) [#/Vol] 136 x10*3/mcL Low 150-350 [facility] Comment on above: Performed By: #### T IBC #### [address] [address] RBC (Bld) [#/Vol] 3.05 x10*6/mcL Low 3.80-5.20 [facility] Comment on above: Performed By: #### T IBC #### [address] [address] WBC (Bld) [#/Vol] 11.4 x10*3/mcL High 4.5-11.0 [facility] Comment on above: Performed By: #### T IBC #### [address] [address] Magnesiumon 02-12-2020 Magnesium [Mass/Vol] 2.5 mg/dL High 1.7-2.4 [facility] Comment on above: Performed By: #### M G #### [facility] [address] [place] [address] Nephrology Progress Noteon 0 02-12-2020 Nephrology Progress [...] mg, 1 mL, IV Push, q2min, PRN Harrison 5 mg-325 mg oral tablet, 1 tabs, [...] 37.7. Spoke to hospitalist, plan for panculture. David graff has been DCd. 9. Hyperlipidemia 10. Hearing [...] her left intertrochanteric fracture Electronically signed by Rockmary NIELSON Dilan Palomajose glamar 02/12/20 21:34 EDT Normal [facility] Orthopedic Progress Noteon 0 02-12-2020 Orthopedic Progress [...] mg, 1 mL, IV Push, q2min, PRN Harrison 5 mg-325 mg oral tablet, 1 tabs, [...] Anemia 12. Delirium, acute Electronically signed by Mayito WATSONNaman 02/12/20 11:16 EDT Normal [facility] PTH-INTon 02-12-2020 PTH Intact 94 pg/mL High 12-88 [facility] Comment on above: Performed By: #### P HOS #### [address] [address] Procalcitonin Levelon 2019 Procalcitonin Lvl 0.54 ng/mL High <=0.49 [facility] Comment on above: Result Comment: < [...] hours. Performed By: #### E GFR #### [address] [address] Progress Note - [employer] Progress Note - [...] 10) 102 (FEBRUARY 09) Cr H 1.39 (JANUARY 18) H 1.51 (JANUARY 17) H 1.87 (FEBRUARY 09) BUN 21 (JANUARY 18) H 29 (FEBRUARY 10) H 41 (FEBRUARY [...] mg, 1 mL, IV Push, q2min, PRN Harrison 5 mg-325 mg oral tablet, 1 tabs, [...] management of CKD, patient evaluated by Dr. Iboaya. Patient with acute delirium and has been [...] Dose: 02/12/20 21:00:00 EDT, Dispense From Location: [employer] EKG Indwelling Urinary Catheter Discontinue Sitter at [...] by Kenyatta Pena 02/12/20 10:03 EDT Normal [facility] Progress Note-Nurseon 2019 Progress Note-Nurse Attempted to administer morning meds and new meds that were ordered by nephrology. Patient is currently confused and combative, and refusing all patient care. Electronically signed by Mery De La Rosa 02/12/20 13:24 EDT Normal [facility] Renal Panelon 02-12-2020 Albumin [Mass/Vol] 3.6 g/dL Normal 3.2-4.9 [facility] Comment on above: Result Comment: [facility] Laboratory updated the methodology used for albumin testing on 08/08/18. Albumin measurement was performed using a bromcresol purple dye-binding assay. Performed By: #### P HOS #### [address] [address] Anion gap [Moles/Vol] 14 mmol/L Normal 7-17 [facility] Comment on above: Performed By: #### P HOS #### [address] [address] Calcium [Mass/Vol] 8.1 mg/dL Low 8.5-10.3 [facility] Comment on above: Performed By: #### P HOS #### [address] [address] Chloride [Moles/Vol] 98 mmol/L Normal 98-110 [facility] Comment on above: Performed By: #### P HOS #### [address] [address] CO2 [Moles/Vol] 26 mmol/L Normal 22-32 [facility] Comment on above: Performed By: #### P HOS #### [address] [address] Creatinine [Mass/Vol] 1.39 mg/dL High 0.44-1.03 [facility] Comment on above: Performed By: #### P HOS #### [address] [address] Glucose [Mass/Vol] 134 mg/dL High 70-99 [facility] Comment on above: Performed By: #### P HOS #### [address] [address] Phosphate [Mass/Vol] 2.6 mg/dL Normal 2.5-4.6 [facility] Comment on above: Performed By: #### P HOS #### [address] [address] Potassium [Moles/Vol] 3.8 mmol/L Normal 3.4-4.8 [facility] Comment on above: Performed By: #### P HOS #### [address] [place] [address] Sodium [Moles/Vol] 134 mmol/L Normal 133-142 [facility] Comment on above: Performed By: #### P HOS #### [address] [address] Urea nitrogen [Mass/Vol] 21 mg/dL Normal 8-26 [facility] Comment on above: Performed By: #### P HOS #### [address] [address] Urea nitrogen/Creatinine [Mass ratio] 15.1 mg/mg Normal 10.0-20.0 [facility] Comment on above: Performed By: #### P HOS #### [address] [address] XR Chest 1 Viewon 02-12-2020 XR Chest [...] Electronically Signed in Other Vendor System) Normal [facility] .eGFRon 02-11-2020 eGFR Non-AA 33 mL/min/1.73m? Low >=60 [facility] Comment on above: Order Comment: Order [...] dosing. Performed By: #### F OL #### [place] [id number] eGFR AA 40 mL/min/1.73m? Low >=60 [facility] Comment on above: Order Comment: Order added by Discern rule Result Comment: Resu lt = 0-14.9 mL/min/1.73 m2 Kidney failure or Dialysis Result = 15-29 mL/min/1.73 m2 Severe decrease in GFR Result = 30-59 mL/min/1.73 m2 Moderate decrease in GFR Result >= 60 mL/min/1.73 m2 Normal or increased GFR Performed By: #### F OL #### [place] [id number] B12on 02-11-2020 Cobalamin (Vitamin B12) [Mass/Vol] 135 pg/mL Low 180-914 [facility] Comment on above: Order Comment: ok to add on to am labs per [place]02/11/2020 12:08:01 EDT cbowman Performed By: #### T IBC #### [place] [id number] CBCon 02-11-2020 Erythrocyte distribution width (RBC) [Ratio] 14.2 % Normal 11.6-14.8 [facility] Comment on above: Performed By: #### P HOS #### [address] [address] Hematocrit (Bld) [Volume fraction] 32.5 % Low 36.0-46.0 [facility] Comment on above: Performed By: #### P HOS #### [address] [address] Hemoglobin (Bld) [Mass/Vol] 10.6 g/dL Low 12.0-16.0 [facility] Comment on above: Performed By: #### P HOS #### [address] [address] MCH (RBC) [Entitic mass] 30.9 pg Normal 27.0-35.0 [facility] Comment on above: Performed By: #### P HOS #### [address] [address] MCHC (RBC) [Mass/Vol] 32.6 % Normal 31.0-37.0 [facility] Comment on above: Performed By: #### P HOS #### [address] [address] MCV (RBC) [Entitic vol] 94.6 fL Normal 80.0-100.0 B [facility] Comment on above: Performed By: #### P HOS #### [address] [address] Platelet mean volume (Bld) [Entitic vol] 8.5 fL Normal 6.7-10.6 [facility] Comment on above: Performed By: #### P HOS #### [address] [address] Platelets (Bld) [#/Vol] 156 x10*3/mcL Normal 150-350 [facility] Comment on above: Performed By: #### P HOS #### [address] [address] RBC (Bld) [#/Vol] 3.44 x10*6/mcL Low 3.80-5.20 [facility] Comment on above: Performed By: #### P HOS #### [address] [address] WBC (Bld) [#/Vol] 11.3 x10*3/mcL High 4.5-11.0 [facility] Comment on above: Performed By: #### P HOS #### [address] [address] Ferritinon 02-11-2020 Ferritin [Mass/Vol] 75.8 ng/mL Normal 11.0-306.8 [facility] Comment on above: Performed By: #### T IBC #### [facility] [address] [place] [address] Folate Lvlon 02-11-2020 Folate Lvl 4.0 ng/mL Low >=5.9 [facility] Comment on above: Result Comment: A WH O Technical Consultation has determined that deficient Folate concentrations are considered to be less than 4 ng/mL. Performed By: #### F OL #### [facility] [address] [place] [address] Magnesiumon 02-11-2020 Magnesium [Mass/Vol] 1.6 mg/dL Low 1.7-2.4 [facility] Comment on above: Performed By: #### E GFR #### [address] [address] Nephrology Progress Noteon 0 02-11-2020 Nephrology Progress [...] mg, 1 mL, IV Push, q2min, PRN Harrison 5 mg-325 mg oral tablet, 1 tabs, [...] Dose: 02/11/20 14:00:00 EDT, Dispense From Location: [facility] Electronically signed by Marianela NIELSON Dilan Uwariomilamar 02/11/20 20:26 EDT Normal [facility] Orthopedic Progress Noteon 0 02-11-2020 Orthopedic Progress [...] Date: 02/11/20 13:56:00 EDT, Dispense From Location: [facility], Prophylaxis- Pre/Post-Op enoxaparin, 30 mg, Subcutaneous, Injection, q24hr, First Dose: 02/11/20 13:00:00 EDT, Dispense From Location: Tfxulhy-JUM-3C hydrocodone-acetaminop hen, 1 tabs, Oral, Tab, q4hr, PRN moderate pain [4-6 on pain scale], First Dose: 02/10/20 13:57:00 EDT, Dispense From Location: Igdzhyc-OAU-2T sodium chloride, 10 mL, IV Push, Injection, As Indicated, PRN flush, First Dose: 02/10/20 14:05:00 EDT, Dispense From Location: [id number]-THS-2L Basic Metabolic Profile Below the Knee Graduated [...] Chele Jordan MD 02/11/20 09:11 EDT Normal [facility] Progress Note - [employer] Progress Note - [...] mg, 1 mL, IV Push, q2min, PRN Harrison 5 mg-325 mg oral tablet, 1 tabs, [...] by Sneha Martell 02/11/20 17:37 EDT Normal [facility] Renal Panelon 02-11-2020 Albumin [Mass/Vol] 2.9 g/dL Low 3.2-4.9 [facility] Comment on above: Result Comment: [facility] Laboratory updated the methodology used for albumin testing on 05/04/18. Albumin measurement was performed using a bromcresol purple dye-binding assay. Performed By: #### F OL #### [address] [address] Anion gap [Moles/Vol] 12 mmol/L Normal 7-17 [facility] Comment on above: Performed By: #### F OL #### [address] [address] Calcium [Mass/Vol] 8.0 mg/dL Low 8.5-10.3 [facility] Comment on above: Performed By: #### F OL #### [address] [address] Chloride [Moles/Vol] 99 mmol/L Normal 98-110 [facility] Comment on above: Performed By: #### F OL #### [address] [address] CO2 [Moles/Vol] 25 mmol/L Normal 22-32 [facility] Comment on above: Performed By: #### F OL #### [address] [place] [address] Creatinine [Mass/Vol] 1.51 mg/dL High 0.44-1.03 [facility] Comment on above: Performed By: #### F OL #### [address] [place] [address] Glucose [Mass/Vol] 193 mg/dL High 70-99 [facility] Comment on above: Performed By: #### F OL #### [address] [place] [address] Phosphate [Mass/Vol] 2.2 mg/dL Low 2.5-4.6 [facility] Comment on above: Performed By: #### F OL #### [address] [address] Potassium [Moles/Vol] 4.0 mmol/L Normal 3.4-4.8 [facility] Comment on above: Performed By: #### F OL #### [address] [address] Sodium [Moles/Vol] 132 mmol/L Low 133-142 [facility] Comment on above: Performed By: #### F OL #### [address] [address] Urea nitrogen [Mass/Vol] 29 mg/dL High 8-26 [facility] Comment on above: Performed By: #### F OL #### [address] [address] Urea nitrogen/Creatinine [Mass ratio] 19.2 mg/mg Normal 10.0-20.0 [facility] Comment on above: Performed By: #### F OL #### [address] [address] TIBCon 02-11-2020 Iron [Mass/Vol] 22 ug/dL Low 28-170 [facility] Comment on above: Performed By: #### T IBC #### [address] [address] Iron Sat 7.6 % Low >=16.0 [facility] Comment on above: Performed By: #### T IBC #### [address] [address] TIBC 288 mcg/dL Normal 261-478 [facility] Comment on above: Performed By: #### T IBC #### [address] [address] Transferrin [Mass/Vol] 193 mg/dL Normal 192-382 [facility] Comment on above: Performed By: #### T IBC #### [address] [address] XR Femur 2 or More Views Lef [...] Electronically Signed in Other Vendor System) Normal [facility] .eGFRon 02-10-2020 eGFR Non-AA 26 mL/min/1.73m? Low >=60 [facility] Comment on above: Result Comment: Resu [...] dosing. Performed By: #### T IBC #### [address] [address] eGFR AA 31 mL/min/1.73m? Low >=60 [facility] Comment on above: Result Comment: Resu lt = 0-14.9 mL/min/1.73 m2 Kidney failure or Dialysis Result = 15-29 mL/min/1.73 m2 Severe decrease in GFR Result = 30-59 mL/min/1.73 m2 Moderate decrease in GFR Result >= 60 mL/min/1.73 m2 Normal or increased GFR Performed By: #### T IBC #### [address] [address] CBC w/ Diffon 02-10-2020 Erythrocyte distribution width (RBC) [Ratio] 14.8 % Normal 11.6-14.8 [facility] Comment on above: Performed By: #### P HOS #### [address] [address] Hematocrit (Bld) [Volume fraction] 38.8 % Normal 36.0-46.0 [facility] Comment on above: Performed By: #### P HOS #### [address] [address] Hemoglobin (Bld) [Mass/Vol] 12.4 g/dL Normal 12.0-16.0 [facility] Comment on above: Performed By: #### P HOS #### [address] [address] MCH (RBC) [Entitic mass] 30.0 pg Normal 27.0-35.0 [facility] Comment on above: Performed By: #### P HOS #### [address] [address] MCHC (RBC) [Mass/Vol] 32.1 % Normal 31.0-37.0 [facility] Comment on above: Performed By: #### P HOS #### [address] [address] MCV (RBC) [Entitic vol] 93.5 fL Normal 80.0-100.0 [facility] Comment on above: Performed By: #### P HOS #### [address] [address] Platelet mean volume (Bld) [Entitic vol] 8.2 fL Normal 6.7-10.6 [facility] Comment on above: Performed By: #### P HOS #### [address] [address] Platelets (Bld) [#/Vol] 198 x10*3/mcL Normal 150-350 [facility] Comment on above: Performed By: #### P HOS #### [address] [address] RBC (Bld) [#/Vol] 4.15 x10*6/mcL Normal 3.80-5.20 [facility] Comment on above: Performed By: #### P HOS #### [address] [address] WBC (Bld) [#/Vol] 11.1 x10*3/mcL High 4.5-11.0 [facility] Comment on above: Performed By: #### P HOS #### [address] [address] [facility] 02-10-2020 Albumin [Mass/Vol] 3.7 g/dL Normal 3.2-4.9 [facility] Comment on above: Result Comment: [facility] Laboratory updated the methodology used for albumin testing on 05/04/18. Albumin measurement was performed using a bromcresol purple dye-binding assay. Performed By: #### T IBC #### [address] [address] Albumin/Globulin [Mass ratio] 1.3 {ratio} Normal 1.1-2.2 [facility] Comment on above: Performed By: #### T IBC #### [address] [address] Alk Phos 89 IU/L Normal 32-91 [facility] Comment on above: Performed By: #### T IBC #### [address] [address] ALT [Catalytic activity/Vol] 20 U/L Normal 14-54 [facility] Comment on above: Performed By: #### T IBC #### [address] [address] Anion gap [Moles/Vol] 17 mmol/L Normal 7-17 [facility] Comment on above: Performed By: #### T IBC #### [address] [address] AST [Catalytic activity/Vol] 21 U/L Normal 15-41 [facility] Comment on above: Performed By: #### T IBC #### [facility] [address] [place] [address], [place] [address] Bili Total 0.9 mg/dL Normal 0.3-1.2 [facility] Comment on above: Performed By: #### T IBC #### [facility] [address] [facility] [address] Calcium [Mass/Vol] 8.8 mg/dL Normal 8.5-10.3 [facility] Comment on above: Performed By: #### T IBC #### [address] [place] [address] Chloride [Moles/Vol] 102 mmol/L Normal 98-110 [facility] Comment on above: Performed By: #### T IBC #### [address] [place] [address] CO2 [Moles/Vol] 24 mmol/L Normal 22-32 [facility] Comment on above: Performed By: #### T IBC #### [address] [place] [address] Creatinine [Mass/Vol] 1.87 mg/dL High 0.44-1.03 [facility] Comment on above: Performed By: #### T IBC #### [address] [place] [address] Glucose [Mass/Vol] 111 mg/dL High 70-99 [facility] Comment on above: Performed By: #### T IBC #### [address] [place] [address] Potassium [Moles/Vol] 5.2 mmol/L High 3.4-4.8 [facility] Comment on above: Performed By: #### T IBC #### [address] [place] [address] Protein [Mass/Vol] 6.6 g/dL Normal 6.5-8.1 [facility] Comment on above: Performed By: #### T IBC #### [address] [address] Sodium [Moles/Vol] 138 mmol/L Normal 133-142 [facility] Comment on above: Performed By: #### T IBC #### [address] [address] Urea nitrogen [Mass/Vol] 41 mg/dL High 8-26 [facility] Comment on above: Performed By: #### T IBC #### [address] [address] Urea nitrogen/Creatinine [Mass ratio] 21.9 mg/mg High 10.0-20.0 [facility] Comment on above: Performed By: #### T IBC #### [address] [address] Diff Autoon 02-10-2020 Baso Absolute 0.0 x10*3/mcL Normal 0.0-0.2 [facility] Comment on above: Performed By: #### T IBC #### [address] [address] Basophils/100 WBC (Bld) 0.2 % Normal 0.0-1.5 B [facility] Comment on above: Performed By: #### T IBC #### [address] [address] Eos Absolute 0.0 x10*3/mcL Normal 0.0-0.4 [facility] Comment on above: Performed By: #### T IBC #### [address] [address] Eosinophils/100 WBC (Bld) 0.0 % Normal 0.0-5.4 [facility] Comment on above: Performed By: #### T IBC #### [address] [address] Lymphocytes (Bld) [#/Vol] 1.2 x10*3/mcL Normal 1.0-4.8 [facility] Comment on above: Performed By: #### T IBC #### [address] [address] Lymphocytes/100 WBC (Bld) 10.7 % Low 27.2-40.8 [facility] Comment on above: Performed By: #### T IBC #### [address] [address] Menard Absolute 1.2 x10*3/mcL High 0.1-1.1 [facility] Comment on above: Performed By: #### T IBC #### [address] [address] Monocytes/100 WBC (Bld) 10.7 % Normal 3.7-11.9 B [facility] Comment on above: Performed By: #### T IBC #### [address] [address] Neutro Absolute 8.7 x10*3/mcL High 1.8-7.7 [facility] Comment on above: Performed By: #### T IBC #### [address] [address] Neutro Auto 78.4 % High 47.2-70.8 [facility] Comment on above: Performed By: #### T IBC #### [address] [address] Magnesiumon 02-10-2020 Magnesium [Mass/Vol] 2.0 mg/dL Normal 1.7-2.4 [facility] Comment on above: Performed By: #### M G #### [address] [address] Nephrology Consultationon Nephrology Consultation Reason for Consultation Advanced renal dysfunction CKD stage IV History of Present Illness Patient is an 84-year-old female who [facility] and has a known history of advanced [...] activation of EMS. Patient was taken to [facility] where she had some scans performed and was found to she had sustained a left intertrochanteric fracture. She was subsequently transferred to [facility] where she has been seen by Dr. Jordan and at time of examination , she is back from her surgery. She denies having any significant pain, she did report some discomfort, she denies having any chest pain, denies any arrhythmia, denies any fever or chills, nausea or vomiting. being managed from [place] emergency department for left intertrochanteric hip [...] Dose: 02/10/20 22:00:00 EDT, Dispense From Location: [place] Magnesium Level Phosphorus Level Renal Function Panel [...] mg, 1 mL, IV Push, q2min, PRN Harrison 5 mg-325 mg oral tablet, 1 tabs, [...] by Dilan Chew DO 02/10/20 23:31 EDT Normal [facility] Operative Reporton 0 Operative Report Indication for Surge ry Patient is an 84-year-old with a left hip fracture. Treatment options were discussed with her as well as risks and benefits and she elected to proceed with surgery. Preoperative Diagnosis Left hip intertrochanteric fracture Postoperative Diagnosis Left hip intertrochanteric fracture Operation Left hip intramedullary nail Surgeon(s) Nikki Environmental Program Manager None Anesthesia Spinal Estimated Blood Loss 75 [...] Chele Jordan MD 02/10/20 13:55 EDT Normal [facility] Orthopedic Consultationon Orthopedic Consultation Reason for Consultation Left hip fracture History of Present Illness Patient was walking yesterday when she lost her balance and fell on to her left hip with pain and inability to bear weight. She presented to [facility] where xrays revealed a left hip fracture. Patient was transferred to [facility] for treatment of this injury. Patient denies [...] Chele Jordan MD 02/10/20 12:20 EDT Normal [facility] Pharmacy Progress Noteon Pharmacy Progress Note Pharmacy [...] by Karen Uriarte 02/10/20 18:35 EDT Normal [facility] Phosphoruson 02-10-2020 Phosphate [Mass/Vol] 3.8 mg/dL Normal 2.5-4.6 [facility] Comment on above: Performed By: #### P HOS #### [facility] [address] [place] [address] Progress Note - [employer] Progress Note - [...] mg, 1 mL, IV Push, q2min, PRN Harrison 5 mg-325 mg oral tablet, 1 tabs, [...] she is not - Reported creatinine at [facility] was 2.42, creatinine significantly improved today [...] Jack 02/09/2020 18:05 EDT Electronically signed by Gallito Martella Semaj 02/10/20 16:09 EDT Normal [facility] APTTon 02-09-2020 aPTT Coag (Bld) [Time] 27.1 s [facility], [place] CBC Auto Differentialon 01-25 Basophils (Bld) [#/Vol] 10*3/uL [facility], [place] Basophils/100 WBC (Bld) 0 % 0 - 2 % [place], [place] Differential Type NOT REPORTED [place], [place] Eosinophils (Bld) [#/Vol] 0.10 10*3/uL [place] Eosinophils/100 WBC (Bld) 1 % 1 - 4 % [place] Erythrocyte distribution width (RBC) [Ratio] 14.0 % 11.8 - 14.4 % [place] Hematocrit (Bld) [Volume fraction] 41.9 % 36.3 - 47.1 % [place] Hemoglobin (Bld) [Mass/Vol] 13.0 g/dL 11.9 - 15.1 g/dL [place] Immature granulocytes (Bld) [#/Vol] 0 % 0 [place] Immature granulocytes (Bld) [#/Vol] 10*3/uL [place] Lymphocytes (Bld) [#/Vol] 2.13 10*3/uL [place] Lymphocytes/100 WBC (Bld) 26 % 24 - 43 % [place] MCH (RBC) [Entitic mass] 30.1 pg 25.2 - 33.5 pg [place] MCHC (RBC) [Mass/Vol] 31.0 g/dL 28.4 - 34.8 g/dL [place] MCV (RBC) [Entitic vol] 97.0 fL 82.6 - 102.9 fL [place] Monocytes (Bld) [#/Vol] 0.78 10*3/uL [place] Monocytes/100 WBC (Bld) 10 % 3 - 12 % [place] Platelet mean volume (Bld) [Entitic vol] 10.7 fL 8.1 - 13.5 fL [place] Platelets (Bld) [#/Vol] NOT REPORTED [place] Platelets (Bld) [#/Vol] 197 10*3/uL [place] RBC (Bld) [#/Vol] 4.32 10*6/uL 3.95 - 5.1 1 m/uL [place] RBC morphology finding Nom (Bld) NOT REPORTED [place] Segmented neutrophils/100 WBC (Bld) 63 % 36 - 65 % [place] Segs Absolute 5.15 [place] WBC (Bld) [#/Vol] 0.0 10*3/uL 0.0 per 10 0 WBC [place] WBC (Bld) [#/Vol] 8.2 10*3/uL [place] WBC Morphology NOT REPORTED [place] CT CERVICAL SPINE WO CONTRAS Ton 02-09-2020 [place], Mhpn Incoming Radiant Results From [employer] - 02/09/2020 12:08 PM EDT EXAMINATION: CT [...] with left bony foraminal narrowing at C5-6. [place] EXAMINATION: CT OF T HE CERVICAL [...] The lung apices are without acute process. [place] No acute fracture or malalignment of the cervical spine. Multilevel degenerative disc disease with associated uncovertebral and facet hypertrophy with left bony foraminal narrowing at C5-6. [place] CT Head WO Contraston 2019 [place], pn Incoming Radiant Results From [employer] - 02/09/2020 11:56 AM EDT EXAMINATION: CT [...] acute CT abnormality identified in the brain. [place] EXAMINATION: CT OF T HE HEAD [...] left posterosuperior scalp injury. No underlying fracture. [place] Left posterosuperior scalp injury without underlying fracture. No acute CT abnormality identified in the brain. [place] Comprehensive Metabolic Pane l w/ Reflex to MGon 02-09-2020 Albumin [Mass/Vol] 4.2 g/dL 3.5 - 5.2 g/dL [place] Albumin/Globulin [Mass ratio] 1.6 {ratio} [place] ALP [Catalytic activity/Vol] 97 U/L 35 - 104 U/L [place] ALT [Catalytic activity/Vol] 16 U/L 5 - 33 U/L [place] Anion gap [Moles/Vol] 16 mmol/L 9 - 17 mmol/L [place] AST [Catalytic activity/Vol] 19 U/L <32 [place] Bilirubin Ql (U) 0.38 mg/dL 0.3 - 1.2 mg/dL [place] Bun/Cre Ratio 18 [place] Calcium [Mass/Vol] 9.3 mg/dL 8.6 - 10. 4 mg/dL [place] Chloride [Moles/Vol] 102 mmol/L 98 - 10 7 mmol/L [place] CO2 [Moles/Vol] 23 mmol/L 20 - 31 mmol/L [place] Creatinine [Mass/Vol] 2.42 mg/dL High 0.5 - 0.9 mg/dL [place] GFR 23 mL/min Low >60 [place] GFR Non- 19 mL/min Low >60 [place] Glucose [Mass/Vol] 132 mg/dL High 70 - 99 mg/dL [place] Interpretation and review of laboratory results Abnormal [place] Potassium [Moles/Vol] 4.5 mmol/L 3.7 - 5.3 mmol/L [place] Protein [Mass/Vol] 6.8 g/dL 6.4 - 8.3 g/dL [place] Sodium [Moles/Vol] 141 mmol/L 135 - 144 mmol/L [place] Urea nitrogen [Mass/Vol] 43 mg/dL High 8 - 23 mg/dL [place] History and Physicalon 02-08 History and Physical Chief Complaint Fall with left hip fracture. History of Present Illness Patient is a 84-year-old female being managed from [facility] emergency emergency department for left intertrochanteric hip [...] and oriented, well nourished, no acute distress. [place] Eye: PERRL, EOMI, normal conjunctiva. HENT: Normocephalic, [...] every 4 hours as needed for nausea. tax services manager consult for discharge planning. 2. Fall See #1. 3. Laceration of head Scabbed. 4. Hypertension Continue hydrochlorothiazide and verapamil. 5. ESRD on dialysis Creatine in [place] was 2.42 Consult nephrology in the morning. 6. Hyperlipidemia Continue pravastatin. Medical Necessity for the hospitilization: Left intertrochanteric hip Fracture Complication Risk: Debility and . Activity at baseline: Independent Anticipated Discharge Location: long term facility Anticipated Discharge Date: Likely greater than [...] No qualifying data available. Electronically signed by Anshul Jack 02/09/20 18:20 EDT Normal [facility] Metabolic Panelon 02-09-2020 GFR/1.73 sq M predicted among non-blacks MDRD (S/P/Bld) [Vol rate/Area] [place] Comment on above: Average GFR for 70 o r more years old: 75 mL/min/1.73sq m Chronic Kidney Disease: <60 mL/min/1.73sq m Kidney failure: <15 mL/min/1.73sq m eGFR calculated using average adult body mass. Additional eGFR calculator available at: http://www.[employer]/multiple_crcl_2012.htm Stage 1: Some kidney damage normal GFR [...] by Fer Bautista 02/09/20 22:53 EDT Normal [facility] Protime-INRon 02-09-2020 INR Coag (PPP) [Relative time] 1.0 {INR} [place] PT Coag (PPP) [Time] 10.7 s [place] XR CHEST PORTABLEon 02-09-20 20 [place], Mhpn Incoming Radiant Results From [employer] - 02/09/2020 11:50 AM EDT EXAMINATION: ONE XRAY VIEW OF THE CHEST 02/09/2020 11:43 am COMPARISON: 09/27/2017 HISTORY: ORDERING SYSTEM PROVIDED HISTORY: for admission TECHNOLOGIST PROVIDED HISTORY: for admission FINDINGS: The lungs are without acute focal process. There is no effusion or pneumothorax. The cardiomediastinal silhouette is stable. The osseous structures are stable. IMPRESSION: No acute process. [facility] EXAMINATION: ONE XRA Y VIEW OF THE CHEST 02/09/2020 11:43 am COMPARISON: 09/27/2017 HISTORY: ORDERING SYSTEM PROVIDED HISTORY: for admission TECHNOLOGIST PROVIDED HISTORY: for admission FINDINGS: The lungs are without acute focal process. There is no effusion or pneumothorax. The cardiomediastinal silhouette is stable. The osseous structures are stable. [facility] X[facility] HIP 2-3 VW W PELVIS LEFTo n 02-09-2020 Intertrochanteric le ft hip fracture. [facility] [place], [place] Incoming Radiant Results From [employer] - 02/09/2020 3:31 PM EDT EXAMINATION: ONE [...] vascular calcifications. IMPRESSION: Intertrochanteric left hip fracture. [facility] EX[facility]: ONE XRA Y VIEW OF THE [...] within the acetabulum. There are vascular calcifications. [facility] CBCon 02-02-2020 Erythrocyte distribution width (RBC) [Ratio] 14.1 % 11.8 - 14.4 % [facility] Hematocrit (Bld) [Volume fraction] 44.3 % 36.3 - 47.1 % [place] Hemoglobin (Bld) [Mass/Vol] 13.4 g/dL 11.9 - 15.1 g/dL [place] MCH (RBC) [Entitic mass] 30.2 pg 25.2 - 33.5 pg [place] MCHC (RBC) [Mass/Vol] 30.2 g/dL 28.4 - 34.8 g/dL [place] MCV (RBC) [Entitic vol] 100.0 fL 82.6 - 102.9 fL [place] Platelet mean volume (Bld) [Entitic vol] 10.6 fL 8.1 - 13.5 fL [place] Platelets (Bld) [#/Vol] 231 10*3/uL [place] RBC (Bld) [#/Vol] 4.43 10*6/uL 3.95 - 5.1 1 m/uL [place] WBC (Bld) [#/Vol] 8.8 10*3/uL [place] WBC (Bld) [#/Vol] 0.0 10*3/uL 0.0 per 10 0 WBC [place] Creatinine, Random Urineon 0 02-02-2020 Creatinine, Ur 148.3 mg/dL 28 - 217 mg/dL [place] Magnesiumon 02-02-2020 Magnesium [Mass/Vol] 2.0 mg/dL 1.6 - 2 .6 mg/dL [place] Metabolic Panelon 02-02-2020 GFR/1.73 sq M predicted among non-blacks MDRD (S/P/Bld) [Vol rate/Area] [place] Comment on above: Stage 1: Some [...] body mass. Additional eGFR calculator available at: http://www.[employer]/multiple_crcl_2012.htm [place]TH, [place] 02-02-2020 Interpretation and review of laboratory results Abnormal [place] Pth Int[place] 103.6 pg/mL High 15 - 65 pg/mL [place] Comment on above: SAMPLES FROM PATIENT S ROUTINELY RECEIVING HIGH DOSE BIOTIN THERAPY MAY SHOW FALSELY DEPRESSED RESULTS. ADDITIONAL INFORMATION MAY BE REQUIRED FOR DIAGNOSIS. Protein, urine, randomon Protein (U) [Mass/Vol] 21 mg/dL [place] Comment on above: No normal range esta blished. Renal Function Panelon 02-01 Albumin [Mass/Vol] 4.6 g/dL 3.5 - 5.2 g/dL [place] Anion gap [Moles/Vol] 15 mmol/L 9 - 17 mmol/L [place] Bun/Cre Ratio 17 [place] Calcium [Mass/Vol] 9.9 mg/dL 8.6 - 10. 4 mg/dL [place] Chloride [Moles/Vol] 102 mmol/L 98 - 10 7 mmol/L [place] CO2 [Moles/Vol] 23 mmol/L 20 - 31 mmol/L [place] Creatinine [Mass/Vol] 1.69 mg/dL High 0.5 - 0.9 mg/dL [place] GFR 35 mL/min Low >60 [place] GFR Non- 29 mL/min Low >60 [place] Glucose [Mass/Vol] 120 mg/dL High 70 - 99 mg/dL [place] Interpretation and review of laboratory results Abnormal [place] Phosphate [Mass/Vol] 2.7 mg/dL 2.6 - 4 .5 mg/dL [place] Potassium [Moles/Vol] 4.0 mmol/L 3.7 - 5.3 mmol/L [place] Sodium [Moles/Vol] 140 mmol/L 135 - 144 mmol/L [place] Urea nitrogen [Mass/Vol] 28 mg/dL High 8 - 23 mg/dL [place] Uric Acidon 02-02-2020 Urate [Mass/Vol] 5.5 mg/dL 2.4 - 5.7 mg/dL [place] Urinalysis with Microscopico n 02-02-2020 Amorphous, UA NOT REPORTED None [place] Bacteria, UA 3+ Abnormal None [place] Bilirubin Urine Negative NEGATIVE [place] Casts UA NOT REPORTED /LPF [place] Color, UA YELLOW YELLOW [place] Crystals, UA NOT REPORTED None /HPF [place] Epithelial Cells UA 10 TO 20 [place] Glucose, Ur Negative NEGATIVE [place] Interpretation and review of laboratory results Abnormal [place] Ketones Ql (U) Negative NEGATIVE [place] Leukocyte esterase Test strip Ql (U) Negative NEGATIVE [place] Mucus, UA NOT REPORTED None [place] Nitrite, Urine Positive Abnormal NEGATIVE [place] Other Observations UA NOT REPORTED NOT REQ. M [place] pH, UA 5.5 [place] Protein (U) [Mass/Vol] Negative NEGATIVE [place], [place] RBC (U) [#/Vol] None [place] Renal Epithelial, UA NOT REPORTED 0 /HPF [place] Specific [place], UA 1.020 [place] Trichomonas, UA NOT REPORTED None [place] Turbidity UA CLEAR CLEAR [place] Urinalysis Comments NOT REPORTED [place] Urine Hgb Negative NEGATIVE [place] Urobilinogen, Urine Normal Normal [place] WBC, UA 2 TO 5 [place] Yeast, UA NOT REPORTED None [place] CBCon 10-30-2019 Erythrocyte distribution width (RBC) [Ratio] 12.9 % 11.8 - 14.4 % [facility] [employer] Work Phone: Hematocrit (Bld) [Volume fraction] 42.8 % 36.3 - 47.1 % [employer] Phone: Hemoglobin (Bld) [Mass/Vol] 12.9 g/dL 11.9 - 15.1 g/dL [employer] Phone: MCH (RBC) [Entitic mass] 30.8 pg 25.2 - 33.5 pg [employer] Phone: MCHC (RBC) [Mass/Vol] 30.1 g/dL 28.4 - 34.8 g/dL [employer] Phone: MCV (RBC) [Entitic vol] 102.1 fL 82.6 - 102.9 fL [employer] Phone: Platelet mean volume (Bld) [Entitic vol] 11.0 fL 8.1 - 13.5 fL [employer] Phone: Platelets (Bld) [#/Vol] 210 10*3/uL [employer] Phone: RBC (Bld) [#/Vol] 4.19 10*6/uL 3.95 - 5.1 1 m/uL [employer] Phone: WBC (Bld) [#/Vol] 7.9 10*3/uL [employer] Phone: WBC (Bld) [#/Vol] 0.0 10*3/uL 0.0 per 10 0 WBC [employer] Phone: Creatinine, Random Urineon 0 10-30-2019 Creatinine, Ur 173.2 mg/dL 28 - 217 mg/dL [employer] Phone: Magnesiumon 10-30-2019 Magnesium [Mass/Vol] 2.2 mg/dL 1.6 - 2 .6 mg/dL [employer] Phone: Metabolic Panelon 10-30-2019 GFR/1.73 sq M predicted among non-blacks MDRD (S/P/Bld) [Vol rate/Area] [employer] Phone: Comment on above: Average GFR for 70 o r more years old: 75 mL/min/1.73sq m Chronic Kidney Disease: <60 mL/min/1.73sq m Kidney failure: <15 mL/min/1.73sq m eGFR calculated using average adult body mass. Additional eGFR calculator available at: http://www.[employer]/multiple_crcl_2012.htm Stage 1: Some kidney damage normal GFR Stage 2: Mild kidney damage GFR 60-89 Stage 3: Moderate kidney damage GFR 30-59 Stage 4: Severe kidney damage GFR 15-29 Stage 5: Severe kidney damage GFR <15 ESRD - chronic treatment by dialysis or transplant [place], [place] 10-30-2019 Interpretation and review of laboratory results Abnormal [employer] Phone: Pth Intact 121.6 pg/mL High 15 - 65 pg/mL [employer] Phone: Comment on above: SAMPLES FROM PATIENT S ROUTINELY RECEIVING HIGH DOSE BIOTIN THERAPY MAY SHOW FALSELY DEPRESSED RESULTS. ADDITIONAL INFORMATION MAY BE REQUIRED FOR DIAGNOSIS. Protein, urine, randomon Protein (U) [Mass/Vol] 22 mg/dL [facility] Phone: Comment on above: No normal range esta blished. Renal Function Panelon 10-30 Albumin [Mass/Vol] 4.4 g/dL 3.5 - 5.2 g/dL [employer] Phone: Anion gap [Moles/Vol] 13 mmol/L 9 - 17 mmol/L [employer] Phone: Bun/Cre Ratio 17 [employer] Phone: Calcium [Mass/Vol] 9.6 mg/dL 8.6 - 10. 4 mg/dL [employer] Phone: Chloride [Moles/Vol] 105 mmol/L 98 - 10 7 mmol/L [employer] Phone: CO2 [Moles/Vol] 25 mmol/L 20 - 31 mmol/L [employer] Phone: Creatinine [Mass/Vol] 1.72 mg/dL High 0.5 - 0.9 mg/dL [employer] Phone: GFR 34 mL/min Low >60 [employer] Phone: GFR Non- 28 mL/min Low >60 [employer] Phone: Glucose [Mass/Vol] 122 mg/dL High 70 - 99 mg/dL [employer] Phone: Interpretation and review of laboratory results Abnormal [employer] Phone: Phosphate [Mass/Vol] 3.5 mg/dL 2.6 - 4 .5 mg/dL [employer] Phone: Potassium [Moles/Vol] 4.7 mmol/L 3.7 - 5.3 mmol/L [employer] Phone: Sodium [Moles/Vol] 143 mmol/L 135 - 144 mmol/L [employer] Phone: Urea nitrogen [Mass/Vol] 30 mg/dL High 8 - 23 mg/dL [employer] Phone: Uric Acidon 10-30-2019 Urate [Mass/Vol] 5.2 mg/dL 2.4 - 5.7 mg/dL [employer] Phone: Urinalysis with Microscopico n 10-30-2019 Amorphous, UA NOT REPORTED None [employer] Phone: Bacteria, UA 3+ Abnormal None [employer] Phone: Bilirubin Urine Negative NEGATIVE [employer] Phone: Casts UA NOT REPORTED /LPF [employer] Phone: Color, UA YELLOW YELLOW [employer] Phone: Crystals UA NOT REPORTED None /HPF [employer] Work Phone: Epithelial Cells UA 10 TO 20 [facility] Work Phone: Glucose, Ur Negative NEGATIVE [facility] Phone: Interpretation and review of laboratory results Abnormal [employer] Work Phone: Ketones Ql (U) Negative NEGATIVE [facility] Work Phone: Leukocyte esterase Test strip Ql (U) TRACE Abnormal NEGATIVE [employer] Phone: Mucus, UA NOT REPORTED None [employer] Phone: Nitrite, Urine Negative NEGATIVE [facility] Phone: Other Observations UA NOT REPORTED NOT REQ. [facility] Work Phone: pH, UA 5.0 [facility] Work Phone: Protein (U) [Mass/Vol] Negative NEGATIVE [facility] Work Phone: RBC (U) [#/Vol] 0 TO 2 [employer] Work Phone: Renal Epithelial, Urine NOT REPORTED 0 /HPF [employer] Phone: [phone] Specific [place], UA 1.020 [employer] Phone: Trichomonas, UA NOT REPORTED None [facility] Work Phone: Turbidity UA SLIGHTLY CLOUDY Abnormal CLEAR [employer] Work Phone: Urinalysis Comments NOT REPORTED [facility] [employer] Work Phone: Urine Hgb Negative NEGATIVE [facility] Work Phone: Urobilinogen, Urine Normal Normal [facility] Phone: WBC, UA 5 TO 10 [facility] Work Phone: Yeast, UA NOT REPORTED None [facility] Work Phone: - [facility] [employer] Phone: CBCon 08-11-2019 Erythrocyte distribution width (RBC) [Ratio] 13.8 % 11.8 - 14.4 % [place] Hematocrit (Bld) [Volume fraction] 40.5 % 36.3 - 47.1 % [place] Hemoglobin (Bld) [Mass/Vol] 12.5 g/dL 11.9 - 15.1 g/dL [place] MCH (RBC) [Entitic mass] 30.9 pg 25.2 - 33.5 pg [place] MCHC (RBC) [Mass/Vol] 30.9 g/dL 28.4 - 34.8 g/dL [place] MCV (RBC) [Entitic vol] 100.2 fL 82.6 - 102.9 fL [place] Platelet mean volume (Bld) [Entitic vol] 10.5 fL 8.1 - 13.5 fL [place] Platelets (Bld) [#/Vol] 245 10*3/uL [place] RBC (Bld) [#/Vol] 4.04 10*6/uL 3.95 - 5.1 1 m/uL [place] WBC (Bld) [#/Vol] 7.1 10*3/uL [place] WBC (Bld) [#/Vol] 0.0 10*3/uL 0.0 per 10 0 WBC [place] Creatinine Clearanceon 08-11 Creatinine [Mass/Vol] 54.7 mg/dL 28 - 2 17 mg/dL [place] Creatinine [Mass/Vol] 1.8 mg/dL High 0.5 - 0.9 mg/dL [place] Creatinine Clearance 25.8 Low [place] Interpretation and review of laboratory results Abnormal [place] Length Of Collection 24 h [place] Patient Height 155 cm [place] Volume 1175 mL [place] Creatinine, Random Urineon 1 10-11-2018 Creatinine, Ur 18.5 mg/dL Low 28 - 217 mg/dL [place] Interpretation and review of laboratory results Abnormal [place] Magnesiumon 08-11-2019 Magnesium [Mass/Vol] 1.9 mg/dL 1.6 - 2 .6 mg/dL [place] Metabolic Panelon 08-11-2019 GFR/1.73 sq M predicted among non-blacks MDRD (S/P/Bld) [Vol rate/Area] [place] Comment on above: Average GFR for 70 o r more years old: 75 mL/min/1.73sq m Chronic Kidney Disease: <60 mL/min/1.73sq m Kidney failure: <15 mL/min/1.73sq m eGFR calculated using average adult body mass. Additional eGFR calculator available at: http://www.[employer]/multiple_crcl_2012.htm Stage 1: Some kidney damage normal GFR Stage 2: Mild kidney damage GFR 60-89 Stage 3: Moderate kidney damage GFR 30-59 Stage 4: Severe kidney damage GFR 15-29 Stage 5: Severe kidney damage GFR <15 ESRD - chronic treatment by dialysis or transplant PTH, [place] 08-11-2019 Interpretation and review of laboratory results Abnormal [place] Pth Int[place] 99.15 pg/mL High 15 - 65 pg/mL [place] Comment on above: SAMPLES FROM PATIENT S ROUTINELY RECEIVING HIGH DOSE BIOTIN THERAPY MAY SHOW FALSELY DEPRESSED RESULTS. ADDITIONAL INFORMATION MAY BE REQUIRED FOR DIAGNOSIS. Protein, urine, randomon Protein (U) [Mass/Vol] mg/dL mg/dL [place] Comment on above: No normal range esta blished. Protein, urine, timedon 07-28 Hours Collected 24 h [place] Protein (U) [Mass/Vol] 5 mg/dL [place], [place] Volume 1175 mL [place] Comment on above: CORRECTED ON 08/11 A T 1745: PREVIOUSLY REPORTED 1175 ML Renal Function Panelon 08-11 Albumin [Mass/Vol] 4.3 g/dL 3.5 - 5.2 g/dL [place] Anion gap [Moles/Vol] 15 mmol/L 9 - 17 mmol/L [place] Bun/Cre Ratio 16 [place] Calcium [Mass/Vol] 9.2 mg/dL 8.6 - 10. 4 mg/dL [place] Chloride [Moles/Vol] 100 mmol/L 98 - 10 7 mmol/L [place] CO2 [Moles/Vol] 22 mmol/L 20 - 31 mmol/L [place] Creatinine [Mass/Vol] 1.8 mg/dL High 0.5 - 0.9 mg/dL [place] GFR 33 mL/min Low >60 [place] GFR Non- 27 mL/min Low >60 [place] Glucose [Mass/Vol] 110 mg/dL High 70 - 99 mg/dL [place] Interpretation and review of laboratory results Abnormal [place] Phosphate [Mass/Vol] 2.8 mg/dL 2.6 - 4 .5 mg/dL [place] Potassium [Moles/Vol] 4.1 mmol/L 3.7 - 5.3 mmol/L [place] Sodium [Moles/Vol] 137 mmol/L 135 - 144 mmol/L [place] Urea nitrogen [Mass/Vol] 29 mg/dL High 8 - 23 mg/dL [place] TSH without Reflexon 019 TSH Qn 3.22 m[IU]/L [place] RENAL COMPLETEon 08-11-20 19 1. [...] CT for confirmation of the above findings. [place] EXAMINATION: RETROPERITONEAL ULTRASOUND OF THE KIDNEYS AND URINARY BLADDER 08/11/2019 COMPARISON: None HISTORY: ORDERING SYSTEM PROVIDED HISTORY: Chronic kidney disease, stage IV (severe) ([facility]) FINDINGS: Kidneys: Suboptimal evaluation due to [...] the bladder. No significant post void residual. [facility] [place], [place] Incoming Radiant Results From [facility] - 08/11/2019 12:53 PM EST EXAMINATION: RETROPERITONEAL ULTRASOUND OF THE KIDNEYS AND URINARY BLADDER 08/11/2019 COMPARISON: None HISTORY: ORDERING SYSTEM PROVIDED HISTORY: Chronic kidney disease, stage IV (severe) ([facility]) FINDINGS: Kidneys: Suboptimal evaluation due to [...] CT for confirmation of the above findings. [facility] Uric Acidon 08-11-2019 Urate [Mass/Vol] 5.4 mg/dL 2.4 - 5.7 mg/dL [facility] [employer] [facility] [employer] Urinalysison 08-11-2019 Protein (U) [Mass/Vol] NOT REPORTED mg/X h [facility] [place] Urinalysis with Microscopico n 08-11-2019 Amorphous, UA NOT REPORTED None [facility] [place] Bacteria, UA TRACE Abnormal None [facility], [place] Bilirubin Urine Negative NEGATIVE [facility], [place] Casts UA NOT REPORTED /LPF [place] Color, UA YELLOW YELLOW [place] Crystals UA NOT REPORTED None /HPF [facility], [place] Epithelial Cells UA 0 TO 2 [place] Glucose, Ur Negative NEGATIVE [place] Interpretation and review of laboratory results Abnormal [place] Ketones Ql (U) Negative NEGATIVE [place] Leukocyte esterase Test strip Ql (U) Negative NEGATIVE [place] Mucus, UA NOT REPORTED None [place] Nitrite, Urine Negative NEGATIVE [place] Other Observations UA NOT REPORTED NOT REQ. M [place] pH, UA 5.5 [place] Protein (U) [Mass/Vol] Negative NEGATIVE [place] RBC (U) [#/Vol] 0 TO 2 [place] Renal Epithelial, Urine NOT REPORTED 0 /HPF [place] Specific [place], UA <1.005 Low [place] Trichomonas, UA NOT REPORTED None [place] Turbidity UA CLEAR CLEAR [place] Urinalysis Comments NOT REPORTED [place] Urine Hgb Negative NEGATIVE [place] Urobilinogen, Urine Normal Normal [place] WBC, UA 0 TO 2 [place] Yeast, UA NOT REPORTED None [place] Vitamin B12 & Folateon 08-11 Cobalamin (Vitamin B12) [Mass/Vol] 391 pg/mL 232 - 1245 pg/mL [place] Folate 7.7 ng/mL >4.8 [place] Vital Signs Date Time Vital Sign Value Performing Clinician Facility 12-06-2023 14:21-0400 Diastolic blood pressure 88 mm[Hg] Mark Cesar PA-C Work Phone: [facility] 12-06-2023 14:21-0400 Heart rate 60 /min Mark Cesar PA-C Work Phone: [facility] 12-06-2023 14:21-0400 Systolic blood pressure 155 mm[Hg] Mark Cesar PA-C Work Phone: [facility] 09-09-2023 13:00-0500 Diastolic blood pressure 88 mm[Hg] Brina Cordero Other [employer] [facility] Other 09-09-2023 13:00-0500 Respiratory rate 12 /min Brina Cordero Other [facility] Other 09-09-2023 13:00-0500 Systolic blood pressure 132 mm[Hg] Brina Cordero Other [facility] Other 08-31-2023 22:45-0500 Diastolic blood pressure 94 mm[Hg] MD Destiny Irwin Work Phone: [facility] 08-31-2023 22:45-0500 Heart rate 89 /min MD Destiny Irwin Work Phone: [facility] 08-31-2023 22:45-0500 Respiratory rate 18 /min MD Destiny Irwin Work Phone: [facility] 08-31-2023 22:45-0500 SaO2% (BldA) [Mass fraction] 97 % MD Destiny Irwin Work Phone: [facility] 08-31-2023 22:45-0500 Systolic blood pressure 165 mm[Hg] MD Destiny Irwin Work Phone: [facility] 08-31-2023 18:28-0500 Body height 154.94 cm MD Destiny Irwin Work Phone: [facility] 08-31-2023 18:28-0500 Body weight 59.87 kg MD Destiny Irwin Work Phone: [facility] 08-31-2023 18:27-0500 Body temperature 98.2 [degF] MD Destiny Irwin Work Phone: [facility] 06-11-2023 13:00-0400 Diastolic blood pressure 72 mm[Hg] Brina Cordero Other [facility] Other 06-11-2023 13:00-0400 Respiratory rate 12 /min Brina Roxie Other [employer] Other 06-11-2023 13:00-0400 Systolic blood pressure 178 mm[Hg] Brina Cordero Other [facility] Other 09-12-2020 11:04-0500 BP Diastolic 63 mm[Hg] Glenn Martínez [employer] [facility] [place] , [place] Comment on above: 2nd reading 09-12-2020 11:04-0500 BP Systolic 139 mm[Hg] Glenn Simon [place], [place] Comment on above: 2nd reading 09-12-2020 11:04-0500 Pulse (Heart Rate) 65 /min [email or web address] [place] [place] 09-12-2020 11:02-0500 Body Temperature 96.1 [degF] [email or web address] [place] 09-12-2020 11:02-0500 Respiratory Rate 20 /min Glenn [facility] [place] 08-15-2020 10:48-0500 Body Temperature 96.69 [degF] Glenn [facility] [place] 08-15-2020 10:48-0500 BP Diastolic 90 mm[Hg] Glenn [email or web address] [place] [facility] [place] 08-15-2020 10:48-0500 BP Systolic 147 mm[Hg] Glenn Martínez [employer] [facility] [place] [facility] [place] 08-15-2020 10:48-0500 Pulse (Heart Rate) 69 /min Glenn [facility] [place] 08-15-2020 10:48-0500 Respiratory Rate 22 /min [email or web address] [place] 07-18-2020 10:55-0400 Body Temperature 97.81 [degF] [email or web address] [place] 07-18-2020 10:55-0400 BP Diastolic 71 mm[Hg] Glenn [facility] [place] [facility] [place] 07-18-2020 10:55-0400 BP Systolic 133 mm[Hg] Glenn [facility] [place] 07-18-2020 10:55-0400 Pulse (Heart Rate) 79 /min Glenn [facility] [place] 07-18-2020 10:55-0400 Respiratory Rate 16 /min Glenn [facility] [place] 06-27-2020 11:04-0400 BP Diastolic 71 mm[Hg] Glenn [facility] [place] 06-27-2020 11:04-0400 BP Systolic 123 mm[Hg] Glenn [facility] [place] [facility] [place] 06-27-2020 11:04-0400 Pulse (Heart Rate) 84 /min Glenn [facility] [place] 06-27-2020 11:04-0400 Respiratory Rate 22 /min Glenn [facility] [place] 05-30-2020 13:10-0400 Body Temperature 97.59 [degF] Glenn [facility] [place] 05-30-2020 13:10-0400 BP Diastolic 86 mm[Hg] Glenn [facility] [place] 05-30-2020 13:10-0400 BP Systolic 136 mm[Hg] Glenn [facility] [place] 05-30-2020 13:10-0400 Pulse (Heart Rate) 108 /min Glenn [facility] [place] 05-30-2020 13:10-0400 Respiratory Rate 20 /min Glenn [facility] [place] 05-15-2020 14:09-0400 Pulse Oximetry 97 % Chele [facility] [place] , [place] 05-15-2020 08:52-0400 Body Temperature 98.2 [degF] Chele [facility] [place] 05-15-2020 08:52-0400 BP Diastolic 58 mm[Hg] Chele [facility] [place] 05-15-2020 08:52-0400 BP Systolic 118 mm[Hg] Chele [facility] [place] 05-15-2020 08:52-0400 Pulse (Heart Rate) 68 /min Chele Lagos [facility], [place] 05-15-2020 08:52-0400 Respiratory Rate 16 /min Chele Simon [facility], [place] 05-10-2020 10:40-0400 BMI (Body Mass Index) 27.21 kg/m2 Chele Lagos [facility], [place] 05-10-2020 10:40-0400 Body weight 69.67 kg Chele Lagos [facility] , [place] 05-10-2020 10:40-0400 Height 160 cm Chele Simon [facility] , [place] 04-06-2020 07:53-0400 Body Temperature 97 [degF] Kian Simon [facility] [place], [place] 04-06-2020 07:53-0400 BP Diastolic 80 mm[Hg] Kian Ernst [facility], [place] 04-06-2020 07:53-0400 BP Systolic 120 mm[Hg] Kian Ernst [facility], [place] 04-06-2020 07:53-0400 Pulse (Heart Rate) 66 /min Kian Simon [facility] [place], [place] 04-06-2020 07:53-0400 Pulse [facility]ximetry 96 % [facility] [place] 04-06-2020 07:53-0400 Respiratory Rate 16 /min Kian Simon [facility] [place], [place] 04-06-2020 04:30-0400 BMI (Body Mass Index) 30.86 kg/m2 Kian Ernst [facility], [place] 04-06-2020 04:30-0400 Body weight 71.67 kg Kian Ernst [facility], [place] 04-03-2020 07:32-0400 Height 152.4 cm [facility] [place] 03-23-2020 17:22-0400 BP Diastolic 82 mm[Hg] [facility] [place] 03-23-2020 17:22-0400 BP Systolic 137 mm[Hg] Forest [facility] , [place] 03-23-2020 17:22-0400 Pulse Oximetry 99 % [facility] [place] , [place] 03-23-2020 15:09-0400 Body Temperature 98.4 [degF] Forest Baer [place] 03-23-2020 15:09-0400 Pulse (Heart Rate) 76 /min Forest [place] 03-23-2020 15:07-0400 BMI (Body Mass Index) 31.05 kg/m2 [place] 03-23-2020 15:07-0400 Body weight 72.12 kg [place] 03-23-2020 15:07-0400 Height 152.4 cm Forest [place] 03-23-2020 15:07-0400 Respiratory Rate 18 /min Forestbrett M[facility] 02-09-2020 15:52-0400 BP Diastolic 50 mm[Hg] [place] 02-09-2020 15:52-0400 BP Systolic 136 mm[Hg] [place] 02-09-2020 15:52-0400 Pulse (Heart Rate) 54 /min [place] 02-09-2020 15:52-0400 Pulse Oximetry 98 % [place] 02-09-2020 15:52-0400 Respiratory Rate 18 /min [place] 02-09-2020 11:10-0400 Body Temperature 98.6 [degF] [place] 02-09-2020 11:10-0400 Body weight 68.04 kg [place] 08-11-2019 15:08-0500 Body weight 67 kg [place] Encounters Encounter Date Encounter Type Care Provider Facility Start: 01-04-2024 Telephone encounter Mark bates PA-C Work Phone: Urology Start: 12-29-2023 End: 12-29-2023 ambulatory KODY LOREDO Not Available Start: 12-08-2023 Telephone encounter Mark bates PA-C Work Phone: Urology Comment on above: Results Start: 12-06-2023 End: 12-06-2023 Patient encounter procedure Mark Andradeue PA-C Work Phone: Urology Comment on above: Nephrolithiasis (Mckenna kapil Dx); Hydronephrosis, unspecified hydronephrosis type Start: 12-06-2023 End: 12-07-2023 ambulatory Mark Andradeue PA-C Work Phone: Urology Start: 12-06-2023 End: 12-06-2023 Subsequent hospital visit by physician [facility] Comment on above: Nephrolithiasis [N20 .0] Start: 12-06-2023 End: 12-06-2023 Subsequent hospital visit by physician [facility] 5 Work Phone: Radiology Comment on above: Nephrolithiasis [N20 .0] Start: 12-01-2023 End: 12-01-2023 ambulatory KODY LOREDO Not Available Start: 10-27-2023 End: 10-28-2023 ambulatory RICCO GARLAND Facility:[facility] Start: 10-17-2023 End: 10-21-2023 ambulatory RICCO GARLAND Facility:[facility] Start: 10-15-2023 End: 10-15-2023 ambulatory Brina Cordero Other [employer] Other Start: 10-15-2023 Telephone encounter Brina Cordero [facility] Start: 10-07-2023 End: 10-07-2023 ambulatory Brina Cordero Other [employer] Other Start: 10-07-2023 Telephone encounter Brina Cordero [facility] Start: 10-05-2023 End: 10-05-2023 ambulatory Brina Cordero Other [employer] Other Start: 10-05-2023 Telephone encounter Brina Cordero [facility] Start: 09-23-2023 Encounter for other preprocedural examination BRINA CORDERO [facility] Start: 09-23-2023 End: 09-23-2023 ambulatory STEFANIE OCAMPO Facility:[facility] Start: 09-23-2023 End: 09-24-2023 ambulatory BRINA CORDERO Facility:[facility] Start: 09-23-2023 End: 09-24-2023 ambulatory BRINA CORDERO Facility:[facility] Start: 09-23-2023 Preprocedural examin ation done Xr A21 [facility] Work Phone: Start: 09-17-2023 ambulatory BRINA Latanya ROXIE Facility :[facility] Start: 09-09-2023 End: 09-09-2023 ambulatory Brina Cordero Other [employer] Other Start: 09-09-2023 Transitional care janina singh sr 14 day discharge Brina Cordero [facility] Start: 09-08-2023 Orders Only Ricco Garland MD Work Phone: Urology Comment on above: Hydronephrosis with urinary obstruction due to renal calculus (Primary Dx) Start: 09-07-2023 End: 09-08-2023 ambulatory RICCO GARLAND Facility:[facility] Start: 09-06-2023 ambulatory Harsh Hardy ty:[facility] Start: 09-03-2023 End: 09-04-2023 ambulatory Justino Grayson Yoostayhubert [employer] Other Start: 09-03-2023 Telephone encounter Brina Cordero [facility] Start: 09-01-2023 End: 09-03-2023 Evaluation and management of inpatient Brina E Roxie Facility:[facility] Start: 08-31-2023 Evaluation and manag ement of inpatient MD Dsetiny Irwin Work Phone: [facility] Work Phone: Start: 08-31-2023 End: 08-31-2023 ambulatory Brina Cordero Other [facility] Other Start: 08-31-2023 Telephone encounter Brina Cordero [facility] Start: 08-30-2023 End: 08-30-2023 ambulatory Brina Cordero Other [facility] Other Start: 08-30-2023 Telephone encounter Brina Cordero [facility] Start: 08-26-2023 End: 08-27-2023 ambulatory Harsh CLAYTON [facility] Other Start: 08-26-2023 Telephone encounter Brina Cordero [facility] Start: 08-24-2023 End: 08-24-2023 ambulatory Brina Cordero Other [facility] Other Start: 08-24-2023 Telephone encounter Brina Cordero [facility] Start: 08-23-2023 End: 08-23-2023 ambulatory Brina Cordero Other [facility] Other Start: 08-23-2023 Telephone encounter Brina Cordero [facility] Start: 08-03-2023 End: 08-03-2023 ambulatory Brina Cordero Other [facility] Other Start: 08-03-2023 Telephone encounter Brina Cordero [facility] Start: 08-02-2023 End: 08-02-2023 ambulatory Brina Cordero Other [facility] Other Start: 08-02-2023 Telephone encounter Brina Cordero [facility] Start: 07-21-2023 End: 07-21-2023 ambulatory Brina Cordero Other [facility] Other Start: 07-21-2023 Telephone encounter Brina Cordero [facility] Start: 07-19-2023 End: 07-19-2023 ambulatory Brina Cordero Other [facility] Other Start: 07-19-2023 Telephone encounter Brina Cordero [facility] Start: 07-05-2023 End: 07-05-2023 ambulatory Brina Roxie Other [facility] Other Start: 07-05-2023 Telephone encounter Brina Roxie [facility] Start: 06-11-2023 End: 06-11-2023 ambulatory Brina Cordero Other [facility] Other Start: 06-11-2023 Patient encounter procedure Brina Roxie [facility] Start: 05-26-2023 ([place] Alf Brina Roxie [facility] at [place] Start: 05-26-2023 End: 05-26-2023 ambulatory Brina Roxie Other [facility] Other Start: 10-14-2021 End: 10-15-2021 ambulatory JUSTINO [facility]ALIWAL [facility] Start: 10-03-2021 End: 10-04-2021 ambulatory JUSTINO Paolo DHALIWAL [facility] Start: 06-24-2021 End: 06-25-2021 ambulatory JUSTINO LEDEZMASE [facility] Start: 06-24-2021 End: 06-24-2021 Subsequent hospital visit by physician Justino Dhaliwal DO Work Phone: [facility] Start: 04-12-2021 End: 04-12-[address] ALAN HERNANDEZ Facility: Start: 02-20-2021 End: 02-21-2021 ambulatory JUSTINO Paolo DHALIWAL [facility] Start: 02-20-2021 End: 02-20-2021 Subsequent hospital visit by physician Justino [place] Phone: [facility] Start: 12-05-2020 End: 12-06-2020 ambulatory DILAN U MARIANELA [facility] Start: 12-05-2020 End: 12-05-2020 Subsequent hospital visit by physician Justino Dhaliwal [facility] Start: 11-07-2020 End: 11-08-2020 ambulatory JUSTINO DHALIWAL [facility] Start: 11-07-2020 End: 11-07-2020 Subsequent hospital visit by physician Justino Dhaliwal [facility] Start: 11-06-2020 End: 11-07-2020 ambulatory [facility] Start: 11-06-2020 End: 11-06-2020 Subsequent hospital visit by physician Justino Dhaliwal [facility] Start: 10-30-2020 End: 10-31-2020 ambulatory JUSTINO Paolo [facility] Start: 10-30-2020 End: 10-30-2020 Subsequent hospital visit by physician Justino Dhaliwal [facility] Start: 10-23-2020 End: 10-24-2020 ambulatory [facility]EL [facility]RA [facility] Start: 10-23-2020 End: 10-23-2020 Subsequent hospital visit by physician Justino Dhaliwal [facility] Start: 09-26-2020 End: 09-26-2020 Subsequent hospital visit by physician Justino Dhaliwal [facility] Start: 09-25-2020 End: 09-25-2020 Subsequent hospital visit by physician Justino Dhaliwal [facility] Start: 09-18-2020 End: 09-18-2020 Subsequent hospital visit by physician Justino Dhaliwal [facility] Start: 09-12-2020 End: 09-12-2020 Subsequent hospital visit by physician Glenn Martínez Work Phone: [facility] Comment on above: Decubitus ulcer of h eel, left, unstageable (HCC) (Primary Dx) Start: 09-11-2020 End: 09-11-2020 Subsequent hospital visit by physician Justino Dhaliwal [facility] Start: 09-06-2020 End: 09-06-2020 Subsequent hospital visit by physician Justino Dhaliwal [facility] Start: 09-05-2020 End: 09-05-2020 Subsequent hospital visit by physician Justino Dhaliwal [facility] Start: 08-28-2020 End: 08-28-2020 Subsequent hospital visit by physician Justino Dhaliwal [facility] Start: 08-27-2020 End: 08-27-2020 Subsequent hospital visit by physician Justino Dhaliwal [facility] Start: 08-21-2020 End: 08-21-2020 Subsequent hospital visit by physician Justino Dhaliwal [facility] Start: 08-16-2020 End: 08-16-2020 Subsequent hospital visit by physician Justino Dhaliwal [facility] Start: 08-15-2020 End: 08-15-2020 Subsequent hospital visit by physician Glenn Martínez Work Phone: [facility] Comment on above: Decubitus ulcer of h eel, left, unstageable (HCC) (Primary Dx) Start: 08-09-2020 End: 08-09-2020 Subsequent hospital visit by physician Justino Dhaliwal [facility] Start: 07-18-2020 End: 07-18-2020 Subsequent hospital visit by physician Glenn Martínez Work Phone: [facility] Comment on above: Decubitus ulcer of h eel, left, unstageable (HCC) (Primary Dx); Pressure ulcer of left calf, stage 3 (HCC) Start: 07-18-2020 End: 07-18-2020 Subsequent hospital visit by physician Justino Dhaliwal [facility] Start: 07-09-2020 End: 07-09-2020 Subsequent hospital visit by physician Justino Dhaliwal [facility] Start: 07-01-2020 End: 07-01-2020 Subsequent hospital visit by physician Justino Dhaliwal [facility] Start: 06-27-2020 End: 06-27-2020 Subsequent hospital visit by physician Glenn Martínez Work Phone: [facility] Comment on above: Decubitus ulcer of h eel, left, unstageable (HCC) (Primary Dx); Pressure injury of left heel, stage 3 (HCC) Start: 06-25-2020 End: 06-25-2020 Subsequent hospital visit by physician Justino Dhaliwal [facility] Start: 06-24-2020 End: 06-24-2020 Subsequent hospital visit by physician Justino Dhaliwal [facility] Start: 06-19-2020 End: 06-19-2020 Subsequent hospital visit by physician Justino Dhaliwal [facility] Start: 06-19-2020 End: 06-19-2020 Subsequent hospital visit by physician Justino Dhaliwal [facility] Start: 06-18-2020 End: 06-18-2020 Subsequent hospital visit by physician Justino Dhaliwal [facility] Start: 06-13-2020 End: 06-13-2020 Subsequent hospital visit by physician Asif Lab Drawing Room [facility] Comment on above: Arrived Decubitus ulcer of h eel, left, unstageable (HCC) (Primary Dx) Start: 06-12-2020 End: 06-12-2020 Subsequent hospital visit by physician Justino Dhaliwal [facility] Start: 06-06-2020 End: 06-06-2020 Subsequent hospital visit by physician Justino Dhaliwal [facility] Start: 05-30-2020 End: 05-30-2020 Subsequent hospital visit by physician Glenn Martínez Work Phone: [facility] Start: 05-30-2020 End: 05-30-2020 Subsequent hospital visit by physician Justino Dhaliwal [facility] Start: 05-23-2020 End: 05-23-2020 Subsequent hospital visit by physician Justino Dhaliwal [facility] Start: 05-23-2020 End: 05-23-2020 Subsequent hospital visit by physician Justino Dhaliwal [facility] Start: 05-17-2020 End: 05-17-2020 Subsequent hospital visit by physician Justino Dhaliwal [facility] Start: 05-10-2020 End: 05-15-2020 Evaluation and management of inpatient CHELE LAGSO [facility] Start: 05-10-2020 End: 05-15-2020 Evaluation and management of inpatient Chele Lagos Work Phone: [facility] Comment on above: 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); Periprosthetic intertrochanteric fracture of femur, initial encounter Start: 05-09-2020 End: 05-09-2020 Subsequent [facility] Start: 05-08-2020 End: 05-08-2020 Subsequent hospital visit by physician Justino Dhaliwal [facility] Start: 05-03-2020 End: 05-03-2020 Subsequent hospital visit by physician Justino Dhaliwal [facility] Start: 04-10-2020 End: 04-10-2020 Subsequent hospital visit by physician Justino Dhaliwal [facility] Start: 04-02-2020 End: 04-06-2020 Evaluation and management of inpatient Kian Ernst [facility] Comment on above: General weakness (Pr imary Dx); Hypokalemia; Malaise; Cellulitis of right upper extremity Start: 03-25-2020 End: 03-25-2020 Subsequent hospital visit by physician Justino Dhaliwal [facility] Start: 03-23-2020 End: 03-23-2020 Emergency department patient visit Forest Baer Work Phone: [facility] ED Comment on above: Pain of left hip bridger nt (Primary Dx) Start: 03-12-2020 End: 03-12-2020 Subsequent hospital visit by physician [facility]hal[facility]wal [facility] Start: 02-27-2020 End: 02-27-2020 Subsequent hospital visit by physician [facility]hal[facility]wal [facility] Start: 02-20-2020 End: 02-20-2020 Subsequent hospital visit by physician [facility]hal[facility]wal [facility] Start: 02-09-2020 End: 02-15-2020 Evaluation and management of inpatient Carlos Carlin Facility:[facility] Start: 02-09-2020 End: 02-09-2020 Emergency department patient visit Mariusz Rodriguez Work Phone: [facility] ED Comment on above: Closed displaced int ertrochanteric fracture of left femur, initial encounter (HCC) (Primary Dx) Start: 02-02-2020 End: 02-02-2020 Subsequent hospital visit by physician [facility] Drawing Room [facility] Comment on above: Arrived Start: 10-30-2019 End: 10-30-2019 Subsequent hospital visit by physician Justino Dhaliwal [facility] Start: 08-11-2019 End: 08-13-2019 Subsequent hospital visit by physician [facility] Drawing Room [facility] Comment on above: Arrived Chronic kidney disea se, stage IV (severe) (HCC) Procedures Date Procedure Procedure Detail Performing Clinician Start: 12-06-2023 Radiologic exam abdo men 3+ views Ricco Garland MD Work Phone: Start: 12-06-2023 Us retroperitoneal r eal time w/image complete Ricco Garland MD Work Phone: Start: 09-23-2023 Antibody screen BRINA CORDERO Comment on above: Order Comment: Speci men Type: BLOOD SPECIMENOrdering Facility: [facility] Address: [address] [place] [address] Performed By: #### T [id number] ####CC MAIN BLOOD BANKCLIA [id number] [place] [id number] [place] Start: 08-31-2023 Urine culture MD Destiny Irwin Work Phone: Start: 12-05-2020 Blood count complete auto&auto difrntl wbc Manuel Ratnasamy Work Phone: Start: 12-05-2020 C-reactive protein Sana jeffrey Ibarra Work Phone: Start: 12-05-2020 Assay of blood/uric acid Benahili U Marianela Work Phone: Start: 12-05-2020 Assay of magnesium Joselyn hili U Kerriya Work Phone: Start: 12-05-2020 Assay of parathormone B enahili U Kerriya Work Phone: Start: 12-05-2020 Renal function panel Be nahili U Marianela Work Phone: Start: 11-07-2020 Blood count complete auto&auto difrntl wbc Manuel Ibarra Work Phone: Start: 11-07-2020 C-reactive protein Sana Ibarra Work Phone: Start: 11-07-2020 Sedimentation rate r bc automated Manuel Ibarra Work Phone: Start: 10-30-2020 Lipid panel Justino F Dany sse Work Phone: Start: 10-23-2020 Blood count complete automated Manuel Ibarra Work Phone: Start: 10-23-2020 C-reactive protein Sana jeffrey Ibarra Work Phone: Start: 10-23-2020 Comprehensive metabo lic panel Manuel Ibarra Work Phone: Start: 10-23-2020 Sedimentation rate r bc automated Manuel Ibarra Work Phone: Start: 09-26-2020 Assay of magnesium Vincent s F Yazmin Work Phone: Start: 09-26-2020 Blood count complete automated Manuel Ibarra Work Phone: Start: 09-26-2020 C-reactive protein Sana jeffrey Ibarra Work Phone: Start: 09-26-2020 Comprehensive metabo lic [...] Work Phone: Start: 08-28-2020 C-reactive protein Sana jeffrey Ratnasamy Work Phone: Start: 08-28-2020 Comprehensive metabo lic [...] Ibarra Work Phone: Start: 08-16-2020 C-reactive protein Sananedra Ibarra Work Phone: Start: 08-16-2020 Comprehensive metabo lic panel Manuel Ibarra Work Phone: Start: 08-16-2020 Sedimentation rate r bc automated Manuel Ibarra Work Phone: Start: 08-09-2020 Assay of blood/uric acid Benahili U Iboaya Work Phone: Start: 08-09-2020 Assay of ferritin Benah david U Iboaya Work Phone: Start: 08-09-2020 Assay of magnesium Joselyn hili U Iboaya Work Phone: Start: 08-09-2020 [...] Basic metabolic pane l calcium total Justino F Yazmin Work Phone: Start: 07-01-2020 Basic metabolic pane l calcium total Manuel Ratnasamy Work Phone: Start: 06-25-2020 Basic metabolic pane l calcium total Manuelraymond Myersnasamy Work Phone: Start: 06-19-2020 Cul bact xcpt urine blood/stool aerobic isol Justino Dhaliwal Work Phone: Start: 06-19-2020 Lipid panel Justino Saenz sse Work Phone: Start: 06-13-2020 Cul bact xcpt urine blood/stool aerobic isol Glenn Martínez Work Phone: Start: 06-12-2020 Blood count complete automated Manuel Ratnasamy Work Phone: Start: 06-12-2020 C-reactive protein Sana jeffreychino Myersnasamy Work Phone: Start: 06-12-2020 Comprehensive metabo lic panel Manuel Ratnasamy Work Phone: Start: 06-12-2020 Sedimentation rate r bc automated Manuel Ratnasamy Work Phone: Start: 06-06-2020 Blood count complete automated Manuel Ratnasamy Work Phone: Start: 06-06-2020 C-reactive protein Sana jeffreychino Myersnasamy Work Phone: Start: 06-06-2020 Comprehensive metabo lic panel Manuel Ratnasamy Work Phone: Start: 06-06-2020 Sedimentation rate r bc automated Manuel Ratnasamy Work Phone: Start: 05-30-2020 C-reactive protein Sana jeffrey Ratnasamy Work Phone: Start: 05-30-2020 Sedimentation rate r bc automated Manuel Ratnasamy Work Phone: Start: 05-30-2020 Blood count complete auto&auto difrntl wbc Manuel Ratnasamy Work Phone: Start: 05-30-2020 Comprehensive metabo lic panel Manuel Ratnasamy Work Phone: Start: 05-23-2020 Blood count complete [...] CHELE LAGOS Start: 05-15-2020 DISCHARGE PATIENT NIKHIL Ross DEMOND Start: 05-15-2020 Blood count hemoglobin Constantin Escobedo Work Phone: Start: 05-15-2020 INITIATE OXYGEN THER APY PROTOCOL CHELE LAGOS Start: 05-14-2020 HEMOGLOBIN AND HEMAT OCRIT, BLOOD CHELE LAGOS Start: 05-14-2020 Blood count hemoglobin Katarina Pike Work Phone: Start: 05-14-2020 TRANSFUSE RED BLOOD CELLS CHELE LAGOS Start: 05-14-2020 Antibody screen Chele Lagos Comment on above: Performed at [facility] [address] [place] [address] Start: 05-14-2020 PREPARE RBC (CROSSMATCH) CHELE LAGOS [...] Radex foot complete minimum 3 views Katarina L Shahzad Work Phone: Start: 05-14-2020 Anion gap [Moles/Vol] [...] 05-13-2020 Blood count complete auto&auto difrntl wbc HCELE LAGOS Start: 05-13-2020 Antibody marynoeltella SARA CRISTOBAL LAGOS Start: 05-13-2020 Basic metabolic pane l [...] Start: 05-12-2020 WOUND OSTOMY EVAL NIKHIL N DEMOND Start: 05-12-2020 Antibody bordetella SARA CRISTOBAL DEMOND Start: 05-12-2020 Basic metabolic pane l calcium total CHELE LAGOS Start: 05-12-2020 Blood count complete auto&auto difrntl wbc CHELE LAGOS Start: 05-12-2020 Creatinine blood CHELE LAGOS Start: 05-12-2020 WOUND OSTOMY EVAL Nikhil n P Demond Work Phone: Start: 05-12-2020 Anion gap [Moles/Vol] C ourtney A Heitmeyer Work Phone: Start: 05-12-2020 Basic metabolic pane l calcium total Sylvia A Heitmeyer Work Phone: Start: 05-12-2020 Blood count complete auto&auto difrntl wbc Sylvia A Heitmeyer Work Phone: Start: 05-12-2020 GLOMERULAR FILTRATIO N RATE, ESTIMATED Sylvia A Heitmeyer Work Phone: Start: 05-12-2020 STRAIGHT CATH CHELE SINGH Start: 05-12-2020 BLADDER SCAN CHELE IZAGUIRRE Start: 05-12-2020 BLADDER SCAN Mirian R Dakotahyling Start: 05-11-2020 NURSING COMMUNICATION S MOSESLAMAR LAGOS Start: 05-11-2020 BLADDER SCAN CHELE IZAGUIRRE [...] Blood count complete auto&auto difrntl wbc Sylvia Grayson [employer] Work Phone: Start: 05-11-2020 Anion gap [Moles/Vol] C ourlauren Grayson [employer] Work Phone: Start: 05-11-2020 Basic metabolic pane l calcium total Sylvia Grayson [employer] Work Phone: Start: 05-11-2020 GLOMERULAR FILTRATIO N RATE, ESTIMATED Sylvia Grayson [employer] Work Phone: Start: 05-10-2020 DIET GENERAL CHELE IZAGUIRRE Start: 05-10-2020 IP CONSULT TO HOSPITALIST CHELE LAGOS Start: 05-10-2020 OT EVAL AND TREAT NIKHIL LAGOS Start: 05-10-2020 PLACE INTERMITTENT P NEUMATIC COMPRESSION DEVICE CHELE ARANGOZINA Start: 05-10-2020 PT EVAL AND TREAT NIKHIL LAGOS Start: 05-10-2020 WEIGHT BEARING TOLERATED CHELE ARANGOZINA Start: 05-10-2020 FULL CODE CHELE IZAGUIRRE Start: 05-10-2020 ICE TO AFFECTED AREA MALICK LAGOS Start: 05-10-2020 INITIATE OXYGEN THER APY PROTOCOL CHELE ARANGOZINA Start: 05-10-2020 INTAKE AND OUTPUT NIKHIL LAGOS Start: 05-10-2020 NEURO/VASCULAR CHECKS S MOSESLAMAR ARANGOZINA Start: 05-10-2020 VITAL SIGNS CHELE IZAGUIRRE Start: 05-10-2020 Radex hip unilateral with pelvis 2-3 views CHELE ARANGOZINA Start: 05-10-2020 PATIENT STATUS (FROM ED OR OR/PROCEDURAL) CHELE LAGOS Start: 05-10-2020 TRANSFER PATIENT CHELE DEMOND Start: 05-10-2020 Cul prsmptv pthgnc o rganism scrn w/[place] estimj CHELE LAGOS Start: 05-10-2020 Radex hip unilateral with pelvis 2-3 views Sylvia A Mell Work Phone: Start: 05-10-2020 ELEVATE HEELS OFF [...] Lagos Comment on above: Performed at [facility] [address] [place] [address] Start: 05-10-2020 Blood typing serologic abo Chele Lagos Work Phone: Start: 05-10-2020 COVID-19 Chele Resendiz H jose Work Phone: Start: 05-09-2020 Basic metabolic pane [...] Start: 04-02-2020 End: 04-02-2020 CULTURE, BLOOD 1 Mariuszsarita Davismarie Work Phone: Start: 04-02-2020 Urnls dip stick/tabl et reagent auto microscopy Kian Ernst Start: 04-02-2020 Assay of magnesium Mariusz E Eitchmarie Work Phone: Start: 04-02-2020 BASIC METABOLIC PANE [...] Radiologic exam ches t single view Kian Molinazpatrick Start: 03-25-2020 Blood count complete auto&auto difrntl wbc Justino Paolo Yazmin Work Phone: Start: 03-25-2020 Comprehensive metabo lic panel Justino Dhaliwal Work Phone: Start: 03-23-2020 COVID-19 Forest Mtz deborah Work Phone: Start: 03-23-2020 Radex hip unilateral with pelvis 2-3 views Forest Smithdeborah Work Phone: Start: 03-23-2020 BASIC METABOLIC PANE L W/ REFLEX TO MG FOR LOW K Forest Smithdeborah Work Phone: Start: 03-23-2020 Blood count complete auto&auto difrntl wbc Forest Smithdeborha Work Phone: Start: 03-23-2020 Prothrombin time Forest Smithdeborah Work Phone: Start: 03-23-2020 Thromboplastin time partial plasma/whole blood Forest Smithdeborah Work Phone: Start: 03-12-2020 Blood count complete [...] head/brain w/o co ntrast material Mariusz E [employer] Work Phone: Start: 02-09-2020 Radex hip unilateral with pelvis 2-3 views Mariusz Latanya [employer]jennifer Work Phone: Start: 02-09-2020 Radiologic exam ches t single view Mariusz Latanya Rodriguez Work Phone: Start: 02-09-2020 Blood count complete auto&auto difrntl wbc Mariusz Latanya Rodriguez Work Phone: Start: 02-09-2020 Prothrombin time Mariusz Latanya [employer] Work Phone: Start: 02-09-2020 Thromboplastin time partial [...] U Iboaya Start: 08-11-2019 Assay of magnesium [place] hili U Iboaya Start: 08-11-2019 Assay of parathormone B enahili U Iboaya Start: 08-11-2019 Assay of thyroid sti mulating hormone tsh Benahili U Iboaya Start: 08-11-2019 Blood count complete automated Benahili U Iboaya Start: 08-11-2019 Creatinine clearance Be nahdavid U Iboaya Start: 08-11-2019 Creatinine other source Benahili U Iboaya Start: 08-11-2019 End: 08-11-2019 Protein total xcpt refractometry urine Benahili U Iboaya Start: 08-11-2019 Renal function panel Be nahdavid U Iboaya Start: 08-11-2019 Urnls dip stick/tabl et reagent auto microscopy Benahili U Iboaya Start: 08-11-2019 VITAMIN B12 & FOLATE Be nahili U Iboaya Plan of Treatment Date Care Activity Detail Author Start: 10-21-2026 Diabetes Screening Diabetes Screencamila sánchez [facility] Start: 05-28-2024 Influenza vaccination Influenz a Vaccine (Season Ended) [facility] Start: 10-23-2023 Diabetes Screening Diabetes Screenin g [facility] Start: 09-27-2023 Advance Directive Discussion Advance Directive Discussion [facility] Start: 09-27-2023 Behavioral Health Screening Behavioral Health Screening [facility] Start: 09-27-2023 Depression Assessment Depression Ass essment [facility] Start: 08-31-2023 End: 08-31-2023 [facility] Start: 08-31-2023 Plain chest X-ray XR chest 2V* [facility] Start: 08-31-2023 XR Chest 2 Views [facility] Start: 08-31-2023 CT Abdomen and Pelvi s WO contrast [facility] Start: 08-31-2023 CT of abdomen and pelvis without contrast CT abdomen pelvis wo con [facility] Start: 08-31-2023 CT of head without contrast CT head/brain wo con [facility] Start: 08-31-2023 CT Unspecified body region WO contrast [facility] Start: 08-31-2023 [facility] Start: 05-28-2023 Covid-19 Vaccine ( season) Covid-19 Vaccine () [facility] Start: 05-28-2023 Influenza vaccination Influenza Vacc ine (#1) [facility] Start: 09-27-2022 Advance Directive Discussion Advance Directive Discussion [facility] Start: 09-27-2022 Depression Assessment Depression Ass essment [facility] Start: 12-05-2021 Creatinine measurement Creatinine mo [facility] [employer] Phone: Start: 12-05-2021 Potassium monitoring Potassium monit [facility] Work Phone: Start: 10-30-2021 Lipid panel Lipid screen [facility] [employer] Phone: Start: 10-23-2021 Creatinine measurement Creatinine mo [place], [place] Start: 10-23-2021 Potassium monitoring Potassium monit [place], [place] Start: 09-26-2021 Creatinine measurement Creatinine mo [place] Start: 09-26-2021 Potassium monitoring Potassium monit [place], [place] Start: 09-18-2021 Creatinine measurement Creatinine mo [place], [place] Start: 09-18-2021 Potassium monitoring Potassium monit [facility], [place] Start: 09-11-2021 Creatinine measurement Creatinine mo [place], [place] Start: 09-11-2021 Potassium monitoring Potassium monit [facility], [place] Start: 06-19-2021 Lipid panel Lipid screen [facility], [place] Start: 05-28-2021 Influenza vaccination Leah anand [employer] Work Phone: Start: 04-05-2021 Creatinine measurement Creatinine mo [facility] [place] Start: 04-05-2021 Potassium monitoring Potassium monit [facility], [place] Start: 03-23-2021 Creatinine measurement Creatinine mo [facility], [place] Start: 03-23-2021 Potassium monitoring Potassium monit [facility], [place] Start: 03-12-2021 Creatinine measurement Creatinine mo [facility] Start: 03-12-2021 Potassium monitoring Potassium monit [facility], [place] Start: 02-26-2021 Creatinine measurement Creatinine mo [facility] Start: 02-26-2021 Potassium monitoring Potassium monit [facility], [place] Start: 02-19-2021 Creatinine measurement Creatinine mo [facility] Start: 02-19-2021 Potassium monitoring Potassium monit [facility], [place] Start: 02-08-2021 Creatinine measurement Creatinine mo [facility] Start: 02-08-2021 Potassium monitoring Potassium monit [facility], [place] Start: 02-01-2021 Creatinine measurement Creatinine mo [facility] Start: 02-01-2021 Potassium monitoring Potassium monit [facility], [place] Start: 10-30-2020 Creatinine measurement Creatinine mo [facility] Start: 10-30-2020 Potassium monitoring Potassium monit [facility], [place] Start: 09-12-2020 End: 09-12-2020 Appointment 09/12/2020 Appointment Wound Ostomy Glenn Martínez, NORAH [address] [facility] [address] [address] [phone] [facility] Start: 08-15-2020 End: 08-15-2020 Appointment 08/15/2020 Appointment Wound Ostomy Glenn Martínez, NORAH [address] [address] [phone] [facility] Start: 08-11-2020 Creatinine monitoring Creatinine mon [place], [place] Start: 08-11-2020 Potassium monitoring Potassium monit [place], [place] Start: 07-18-2020 End: 07-18-2020 Appointment 07/18/2020 Appointment Wound Ostomy Glenn Martínez, DPM [address] [address] [phone] [facility] Start: 06-27-2020 End: 06-27-2020 Appointment 06/27/2020 Appointment Wound Ostomy Glenn Martínez, DPM [address] [address] [phone] [facility] Start: 06-13-2020 End: 06-13-2020 Appointment 06/13/2020 Appointment Wound Glenn Camargo, DPM [address] [address] [phone] [facility] Start: 05-28-2020 Influenza vaccination M [place], [place] Start: 05-28-2019 Influenza vaccination Flu vaccine (# 1) [place], [place] Start: 03-17-2019 Annual Wellness Visi t (AWV) Annual Wellness Visit (AWV) [place], [place] Start: 03-08-2019 Creatinine monitoring Creatinine [place], [place] Start: 03-08-2019 Lipid panel Lipid screen [place], [place] Start: 03-08-2019 Lipid screen Lipid screen [place] Start: 03-08-2019 Potassium monitoring Potassium monit [place], [place] Start: 2002 DEXA (modify frequen cy per FRAX score) DEXA (modify frequency per FRAX score) [place], [place] Start: 2002 Pneumococcal 65+ yea rs Vaccine (1 of 1 - PPSV23) Pneumococcal 65+ years Vaccine (1 of 1 - PPSV23) [place], [place] Start: 2002 Pneumococcal 65+ yrs at Risk Vaccine (1 of 2 - PCV13) Pneumococcal 65+ yrs at Risk Vaccine (1 of 2 - PCV13) [place] Start: 2002 Pneumococcal Vaccine : 65+ (1 - PCV) Pneumococcal Vaccine: 65+ (1 - PCV) [facility] Start: 2002 Pneumococcal Vaccine : 65+ (1 of 1 - PCV) Pneumococcal Vaccine: 65+ (1 of 1 - PCV) [facility] Start: 2002 Screening for osteoporosis Bone Density Screening [facility] Start: 1997 RSV Vaccine (1 - 1-d ose 60+ series) RSV Vaccine (1 - 1-dose 60+ series) [facility] Start: 1992 Screening for osteoporosis DEXA (modify frequency per FRAX score) [place], [place] Start: 1987 Shingles Vaccine (1 of 2) Shingles Vaccine (1 of 2) [place], [place] Start: 1987 Shingrix Vaccine (1 of 2) Shingrix Vaccine (1 of 2) [facility] Start: 1956 DTaP/Tdap/Td vaccine (1 - Tdap) DTaP/Tdap/Td vaccine (1 - Tdap) [place], [place] Start: 1956 Urine microalbumin profile DTaP,Tdap,Td Vaccine (1 - Tdap) [facility] Start: 1953 COVID-19 Vaccine (1 of 2) COVID-19 Vaccine (1 of 2) [place], [place] Start: 1949 COVID-19 Vaccine (1) COVID-19 Vaccin e (1) [facility] Work Phone: Start: 1948 DTaP/Tdap/Td vaccine (1 - Tdap) DTaP/Tdap/Td vaccine (1 - Tdap) [place], [place] Start: [birth year]-07-1938 Covid-19 Vaccine (#1) Covid-19 Vacci ne (#1) [facility] Bacteria identified in Blood by Culture [facility] Bacteria identified in Urine by Culture [facility] CBC auto differential CBC auto d ifferential Lab Routine Daily until discontinued starting 04/05/2020, 2 completed [facility] [place], [place] Comment on above: Daily until disconti nued starting 04/05/2020, 2 completed Comprehensive metabo lic 2000 panel Comprehensive metabolic panel Lab Routine Daily until discontinued starting 04/05/2020, 2 completed [facility] [place] Comment on above: Daily until disconti nued starting 04/05/2020, 2 completed End: 01-06-2025 CT Abdomen and Pelvis WO contrast CT FLANK WO IVCON Radiology STAT Nephrolithiasis 1 Occurrences starting 12/08/2023 until 01/06/2025 [facility] Work Phone: Comment on above: 1 Occurrences starti ng 12/08/2023 until 01/06/2025 Culture, Anaerobic a nd Aerobic Culture, Anaerobic and Aerobic Microbiology Routine 05/10/2020 1:31 PM EDT [facility] [place] Culture, Blood 1 [facility], [place] End: 04-10-2020 Culture, Urine Culture, Urine Microbiology Routine Once for 1 Occurrences starting 04/10/2020 until 04/10/2020 [facility] [place] Comment on above: Once for 1 Occurrenc es starting 04/10/2020 until 04/10/2020 Culture, Urine [facility] [place] End: 05-08-2020 Culture, Urine Culture, Urine Microbiology Routine Once for 1 Occurrences starting 05/08/2020 until 05/08/2020 [facility], [place] Comment on above: Once for 1 Occurrenc es starting 05/08/2020 until 05/08/2020 End: 08-09-2020 Culture, Urine Culture, Urine Microbiology Routine Once for 1 Occurrences starting 08/09/2020 until 08/09/2020 [facility] [place] Comment on above: Once for 1 Occurrenc es starting 08/09/2020 until 08/09/2020 End: 08-27-2020 Culture, Urine Culture, Urine Microbiology Routine Once for 1 Occurrences starting 08/27/2020 until 08/27/2020 [facility] [place] Comment on above: Once for 1 Occurrenc es starting 08/27/2020 until 08/27/2020 Culture, Wound [facility] [place] Hemoglobin and Hematocrit, Blood, Post Transfusion Hemoglobin and Hematocrit, Blood, Post Transfusion Lab Routine Post Transfusion Post Transfusion Post Transfustion for 1 Occurrences starting 05/14/2020 [facility] Comment on above: Post Transfusion Pos t Transfusion Post Transfustion for 1 Occurrences starting 05/14/2020 Initiate Oxygen Ther apy Protocol Initiate Oxygen Therapy Protocol Respiratory Care Routine Daily until discontinued starting 04/03/2020 [facility] Comment on above: Daily until disconti nued starting 04/03/2020 End: 08-11-2019 Iron and TIBC Iron and TIBC Lab Routine Once for 1 Occurrences starting 08/11/2019 until 08/11/2019 [facility] Comment on above: Once for 1 Occurrenc es starting 08/11/2019 until 08/11/2019 Iron and TIBC Iron and TIBC La b Routine 08/11/2019 10:35 AM EST [facility] End: 10-07-2024 Kidney img morphology vascular flow 1 w/rx NM RENAL FLOW/FXN W PHARM Radiology Routine Hydronephrosis with urinary obstruction due to renal calculus 1 Occurrences starting 09/08/2023 until 10/07/2024 [facility] Work Phone: Comment on above: 1 Occurrences starti ng 09/08/2023 until 10/07/2024 Oxygen therapy [[facility] Data Set] Initiate Oxygen Therapy Protocol Respiratory Care Routine Daily until discontinued starting 05/11/2020 [facility] Comment on above: Daily until disconti nued starting 05/11/2020 PREPARE RBC (CROSSMATCH), 1 Units PREPARE RBC (CROSSMATCH), 1 Units Blood Bank Non-Stat 05/14/2020 8:58 AM EDT [facility] Transfuse erythrocyt es [Vol] Transfuse RBC Nursing Transfusion Routine 05/14/2020 11:30 AM EDT [facility] URINALYSIS, REFLEX MICROSCOPIC URINALYSIS, REFLEX MICROSCOPIC Lab Routine Screening for genitourinary condition Ordered: 12/06/2023 [facility] Work Phone: Comment on above: Ordered: 12/06/2023 End: 01-05-2025 US Kidney - bilateral and Urinary bladder US KIDNEY/BLADDER Radiology Routine Nephrolithiasis 1 Occurrences starting 12/06/2023 until 01/05/2025 [facility] Work Phone: Comment on above: 1 Occurrences starti ng 12/06/2023 until 01/05/2025 End: 01-04-2025 XR Abdomen GE 3 Views AP and Oblique and Cone XR ABDOMEN 3V KUB W/OBLIQUES Radiology Routine Nephrolithiasis 1 Occurrences starting 12/06/2023 until 01/04/2025 [facility] Work Phone: Comment on above: 1 Occurrences starti ng 12/06/2023 until 01/04/2025 [facility] Payers Date Payer Category Payer Self-pay 2023 Medicaid MEDICAID [facility] MEDICAID [id number] 2023-Present [phone] [address] [place] [address] Medicaid [id number] 2022 Medicaid [id number] 2020 Unknown 2017 Medicare BS MEDICARE AN THEM MEDIBLUE ESSENTIAL/PLUS xxxxxxxxxxxx 2017-Present [address] [address] [place] [address] xxxxxxxxxxxx [id number] 2017 Medicare BCBS MEDICARE AN THEM MEDIBLUE ESSENTIAL/PLUS [id number] 2017-Present [address] [address] [place] [address] [id number] 2002 Medicare 2002 Medicare [id number] 1959 Medicare [id number] 1937 Unknown [id number] [id number] 1937 Unknown [id number] 2.16.840.1.240504.3.579.2.196 1937 Unknown [id number] 2.16.840.1.153088.3.579.2.593 1937 Unknown [id number] 2.16.840.1.540158.3.579.2.173 1937 Unknown [id number] 2.16.840.1.514206.3.579.2.173 1937 Unknown [id number] 2.16.840.1.226473.3.579.2.173 1937 Unknown [id number] 2.16.840.1.049410.3.579.2.173 1937 Unknown [id number] 2.16.840.1.961114.3.579.2.173 1937 Unknown [id number] 2.16.840.1.782079.3.579.2.173 1937 Unknown [id number] 2.16.840.1.178981.3.579.2.173 1937 Unknown [id number] 2.16.840.1.756788.3.579.2.173 1937 Unknown [id number] 2.16.840.1.721705.3.579.2.173 1937 Unknown [id number] 2.16.840.1.496851.3.579.2.173 1937 Unknown [id number] 2.16.840.1.805485.3.579.2.727 1937 Unknown [id number] 2.16.840.1.979880.3.579.2.727 1937 Unknown [id number] 2.16.840.1.803933.3.579.2.125 9 1937 Unknown [id number] 2.16.840.1.185266.3.579.2.125 9 Unknown [id number] [id number] Social History Date Type Detail Facility Start: 09-27-2017 End: 09-07-2023 Tobacco smoking status NHIS Never smoker [facility] Start: 09-27-2017 End: 09-12-2020 Alcohol intake Current non-drinker of alcohol (finding) [facility] Start: 1935 Sex Assigned At Not on file M Top[place] Exposure to SARS-CoV-2 (event) Unable to assess [facility] Start: 04-03-2020 End: 09-07-2023 Tobacco use and exposure Never used [facility] Exposure to SARS-CoV-2 (event) Not sure [facility] Exposure to SARS-CoV-2 (event) Yes [facility] Start: 09-07-2023 End: 12-06-2023 Sex Assigned At [employer] Other Start: 1935 Sex Assigned At Female F [facility] Start: 09-07-2023 End: 12-06-2023 History of Social function [facility] National Score (1-100), lower number is lower risk 63 [facility] Start: 12-06-2023 Alcohol intake Lifetime non-d denise (finding) [facility] Medical Equipment Procedure Code Equipment Code Equipment Origin al Text Equipment Identifier Dates Impl Hip Cover T hr Hole Med Demand [id number] Start: 05-10-2020 Impl Hip Screw Redapt Lk 30mm [id number] Start: 05-10-2020 Impl Hip Screw Redapt Lk 40mm [id number] Start: 05-10-2020 Impl Hip Screw Redapt Lk 30mm [id number] Start: 05-10-2020 Impl Hip Acet Li ner R3 0 Deg 36 X 52 [id number] Start: 05-10-2020 Redapt Modular- Ackerman/Nephew 931_[id number] Start: 05-10-2020 Impl Hip Fem Com p Redapt 240mm Sz 15 [id number] Start: 05-10-2020 Impl Hip Fem Hea d Coblt Chrome 12to14 3 [id number] Start: 05-10-2020 Stent Inlay Opti ma 7fr Taper [place] [employer] Polymer Phreecoat 24cm Ureteral - [id number] Start: 10-18-2023 Clinical Notes 05-26-2023 to 01-04-2024 Telephone Encounter - Khushboo Davila - 01/04/2024 10:23 AM EDTAddendum Note - Mark Cesar PA-C - 12/08/2023 3:25 PM EDTTelephone Encounter - Mark Cesar PA-C - 12/08/2023 3:20 PM EDT Note Date & Type Note Facility 01-04-2024 Miscellaneous Notes Mailed pt CT orders so they can have done locally when they get apt they will call to schedule VV with Mark Cesar documented in this encounter [facility] 12-08-2023 Miscellaneous Notes Addended by: MARK CESAR on: 12/08/2023 03:25 PM Modules accepted: Orders Left VM following our post-op visit. In reviewing with Dr. Garland, we feel a CT scan to assess post-op mild/moderate hydronephrosis is warranted to rule out stone fragments vs stricture formation. Order is in place. Instructed to call at earliest convenience to set up. Can review alongside [facility] in a few weeks. Mark Cesar PA-C December 07, 2023 12 PM documented in this encounter [facility] 12-06-2023 Note HNO ID: [id number] Author: MARK CESAR PA-C Service: ? Author Type: Physician Environmental Program Manager Type: Progress Notes Filed: 12/07/2023 14:24 Note Text: UROLOGY NOTE Chief complaint: kidney stone follow up Jesús Nolan is a 88 year old female who presents today for kidney stone management and prevention counseling. s/p L miniPCNL w/ Dr. Garland on 10/18/23. CaP, struvite. Pt currently: no fever, no chills, no nausea, no vomiting, no dysuria, no gross hematuria, no renal colic She completed US and KUB today, the former showing mild/moderate left hydro despite no apparent stone (staghorn stone no longer visualized). She denies any pain on that side. [facility] 24-hour urine collection was sent off three days ago, so results not yet available. There is no height or weight on file to calculate BMI. PAST MEDICAL HISTORY Diagnosis Date Stage 4 chronic kidney disease (HCC) 04/12/2021 Stage 4 chronic kidney disease (HCC) 04/12/2021 No past surgical history on file. No family history on file. Social History Tobacco Use Smoking status: Never Smokeless tobacco: Never Substance Use Topics Alcohol use: Never Drug use: Never Current Outpatient Medications on File Prior to Visit Medication Sig acetaminophen (TYLENOL EXTRA STRENGTH) 500 mg tablet Take 2 tablets by mouth every 6 hours as needed for pain. VITAMIN C 500 mg tablet busPIRone (BUSPAR) 10 mg tablet calcitriol (ROCALTROL) 0.25 mcg capsule Take 0.25 mcg by mouth. calcium acetate (CALPHRON) 667 mg tablet docusate sodium (COLACE) 100 mg capsule Take 100 mg by mouth. ferrous sulfate 325 mg (65 mg iron) tablet furosemide (LASIX) 20 mg tablet Take 20 mg by mouth. hydrALAZINE (APRESOLINE) 25 mg tablet Take 25 mg by mouth. LORazepam (ATIVAN) 0.5 mg Take 0.5 mg by mouth every 6 hours as needed. melatonin 10 mg ODT polyethylene glycol 3350 17 gram packet Take 17 g by mouth. pravastatin (PRAVACHOL) 10 mg tablet Take 10 mg by mouth. verapamil SR (CALAN SR) 180 mg CR tablet Take 180 mg by mouth. diclofenac (VOLTAREN) 1 % topical gel HYDROcodone-Acetaminophen (NORCO) 10-325 mg per tablet HIGH POTENCY MULTIVITAMIN 400 mcg estradiol (ESTRACE) 0.01 % (0.1 mg/gram) vaginal cream Use 1 g vaginally one time a week. tamsulosin (FLOMAX) 0.4 mg Take 1 capsule by mouth once daily. 30 minutes after the same meal each day. lactulose 10 gram/15 mL solution (Patient not taking: Reported on 09/23/2023) No current facility-administered medications on file prior to visit. ALLERGIES No Known Allergies Admission on 10/17/2023, Discharged on 10/21/2023 Component Date Value Ref Range Status WBC 10/17/2023 7.18 3.70 - 11.00 k/uL Final RBC 10/17/2023 4.11 3.90 - 5.20 m/uL Final Hemoglobin 10/17/2023 13.1 11.5 - 15.5 g/dL Final Hematocrit 10/17/2023 40.4 36.0 - 46.0 % Final MCV 10/17/2023 98.3 80.0 - 100.0 fL Final MCH 10/17/2023 31.9 26.0 - 34.0 pg Final MCHC 10/17/2023 32.4 30.5 - 36.0 g/dL Final RDW-CV 10/17/2023 13.2 11.5 - 15.0 % Final Platelet Count 10/17/2023 194 150 - 400 k/uL Final MPV 10/17/2023 10.4 9.0 - 12.7 fL Final Neutrophils % 10/17/2023 58.3 % Final Abs Neut 10/17/2023 4.19 1.45 - 7.50 k/uL Final Lymphocytes % 10/17/2023 30.8 % Final Abs Lymph 10/17/2023 2.21 1.00 - 4.00 k/uL Final Monocytes % 10/17/2023 9.5 % Final Abs Menard 10/17/2023 0.68 <0.87 k/uL Final Eosinophils % 10/17/2023 1.0 % Final Abs Eosin 10/17/2023 0.07 <0.46 k/uL Final Basophils % 10/17/2023 0.1 % Final Abs Baso 10/17/2023 <0.03 <0.11 k/uL Final Immature Granulocytes % 10/17/2023 0.3 % Final Abs Immature Gran 10/17/2023 <0.03 <0.10 k/uL Final NRBC 10/17/2023 0.0 /100 WBC Final Absolute nRBC 10/17/2023 <0.01 <0.01 k/uL Final Diff Type 10/17/2023 Auto Final Glucose 10/17/2023 129 (H) 74 - 99 mg/dL Final The [place] Diabetes Association (ADA) provides guidance for cutoff [...] Standards of Medical Care in Diabetes 2016, [place] Diabetes Association. Diabetes Care. 2016.39(Suppl 1). BUN 10/17/2023 30 (H) 7 - 21 mg/dL Final Creatinine 10/17/2023 2.11 (H) 0.58 - 0.96 mg/dL Final Sodium 10/17/2023 143 136 - 144 mmol/L Final Potassium 10/17/2023 4.3 3.7 - 5.1 mmol/L Final Chloride 10/17/2023 103 97 - 105 mmol/L Final CO2 10/17/2023 23 22 - 30 mmol/L Final Anion Gap 10/17/2023 17 9 - 18 mmol/L Final Calcium, Total (more content not included)... [facility] 12-06-2023 Note HNO ID: [id number] Author: STAR CANALES RT(R) Service: ? Author Type: Technologist Type: Progress Notes Filed: 12/06/2023 13:48 Note Text: Radiology Service Progress Note PATIENT NAME: Jesús Nolan DATE OF SERVICE: December 06, 2023 TIME: 1:47 PM PATIENT IDENTITY VERIFICATION COMPLETED USING TWO (2) IDENTIFIERS: Name and Date of confirmed by patient verbally. FALL SCREENING: Has the patient had 2 falls in the last year or 1 fall with injury or currently using an Ambulatory Assistive Device (Walker, Cane, Wheelchair, Crutches, etc.)? Yes, Patient High Risk for Falls What interventions were put in place to prevent falls during this visit? Yellow Falls Risk Wristband Applied PATIENT GENDER DATA: Female. status: : No status: NO. PATIENT RELEVANT IMPLANT DATA REVIEWED: Not Applicable PATIENT PRESENTS WITH AN IMPLANTABLE OR ATTACHED FOREIGN EXCHANGE STUDENT COORDINATOR: No RADIOLOGY DEPARTMENT: General X-ray: Exam(s) Completed: Abdomen X-Ray: Abdomen with Obliques PERIPHERAL IV DATA: Not applicable SIGNED BY: RT Eveline(R) December 06, 2023 1:47 PM [facility] 12-06-2023 Instructions Mark Cesar PA-C - 12/06/2023 2:49 PM EDT documented in this encounter [facility] 12-06-2023 History of Presen t illness Narrative Images from the original note were not included. UROLOGY NOTE Chief complaint: kidney stone follow up Jesús Nolan is a 88 year old female who presents today for kidney stone management and prevention counseling. s/p L miniPCNL w/ Dr. Garland on 10/18/23. CaP, struvite. Pt currently: no fever, no chills, no nausea, no vomiting, no dysuria, no gross hematuria, no renal colic She completed US and KUB today, the former showing mild/moderate left hydro despite no apparent stone (staghorn stone no longer visualized). She denies any pain on that side. [facility] 24-hour urine collection was sent off three days ago, so results not yet available. There is no height or weight on file to calculate BMI. PAST MEDICAL HISTORY Diagnosis Date Stage 4 chronic kidney disease (HCC) 04/12/2021 Stage 4 chronic kidney disease (HCC) 04/12/2021 No past surgical history on file. No family history on file. Social History Tobacco Use Smoking status: Never Smokeless tobacco: Never Substance Use Topics Alcohol use: Never Drug use: Never Current Outpatient Medications on File Prior to Visit Medication Sig acetaminophen (TYLENOL EXTRA STRENGTH) 500 mg tablet Take 2 tablets by mouth every 6 hours as needed for pain. VITAMIN C 500 mg tablet busPIRone (BUSPAR) 10 mg tablet calcitriol (ROCALTROL) 0.25 mcg capsule Take 0.25 mcg by mouth. calcium acetate (CALPHRON) 667 mg tablet docusate sodium (COLACE) 100 mg capsule Take 100 mg by mouth. ferrous sulfate 325 mg (65 mg iron) tablet furosemide (LASIX) 20 mg tablet Take 20 mg by mouth. hydrALAZINE (APRESOLINE) 25 mg tablet Take 25 mg by mouth. LORazepam (ATIVAN) 0.5 mg Take 0.5 mg by mouth every 6 hours as needed. melatonin 10 mg ODT polyethylene glycol 3350 17 gram packet Take 17 g by mouth. pravastatin (PRAVACHOL) 10 mg tablet Take 10 mg by mouth. verapamil SR (CALAN SR) 180 mg CR tablet Take 180 mg by mouth. diclofenac (VOLTAREN) 1 % topical gel HYDROcodone-Acetaminophen (NORCO) 10-325 mg per tablet HIGH POTENCY MULTIVITAMIN 400 mcg estradiol (ESTRACE) 0.01 % (0.1 mg/gram) vaginal cream Use 1 g vaginally one time a week. tamsulosin (FLOMAX) 0.4 mg Take 1 capsule by mouth once daily. 30 minutes after the same meal each day. lactulose 10 gram/15 mL solution (Patient not taking: Reported on 09/23/2023) No current facility-administered medications on file prior to visit. ALLERGIES No Known Allergies Admission on 10/17/2023, Discharged on 10/21/2023 Component Date Value Ref Range Status WBC 10/17/2023 7.18 3.70 - 11.00 k/uL Final RBC 10/17/2023 4.11 3.90 - 5.20 m/uL Final Hemoglobin 10/17/2023 13.1 11.5 - 15.5 g/dL Final Hematocrit 10/17/2023 40.4 36.0 - 46.0 % Final MCV 10/17/2023 98.3 80.0 - 100.0 fL Final MCH 10/17/2023 31.9 26.0 - 34.0 pg Final MCHC 10/17/2023 32.4 30.5 - 36.0 g/dL Final RDW-CV 10/17/2023 13.2 11.5 - 15.0 % Final Platelet Count 10/17/2023 194 150 - 400 k/uL Final MPV 10/17/2023 10.4 9.0 - 12.7 fL Final Neutrophils % 10/17/2023 58.3 % Final Abs Neut 10/17/2023 4.19 1.45 - 7.50 k/uL Final Lymphocytes % 10/17/2023 30.8 % Final Abs Lymph 10/17/2023 2.21 1.00 - 4.00 k/uL Final Monocytes % 10/17/2023 9.5 % Final Abs Menard 10/17/2023 0.68 <0.87 k/uL Final Eosinophils % 10/17/2023 1.0 % Final Abs Eosin 10/17/2023 0.07 <0.46 k/uL Final Basophils % 10/17/2023 0.1 % Final Abs Baso 10/17/2023 <0.03 <0.11 k/uL Final Immature Granulocytes % 10/17/2023 0.3 % Final Abs Immature Gran 10/17/2023 <0.03 <0.10 k/uL Final NRBC 10/17/2023 0.0 /100 WBC Final Absolute nRBC 10/17/2023 <0.01 <0.01 k/uL Final Diff Type 10/17/2023 Auto Final Glucose 10/17/2023 129 (H) 74 - 99 mg/dL Final The [place] Diabetes Association (ADA) provides guidance for cutoff [...] Standards of Medical Care in Diabetes 2016, [place] Diabetes Association. Diabetes Care. 2016.39(Suppl 1). BUN 10/17/2023 30 (H) 7 - 21 mg/dL Final Creatinine 10/17/2023 2.11 (H) 0.58 - 0.96 mg/dL Final Sodium 10/17/2023 143 136 - 144 mmol/L Final Potassium 10/17/2023 4.3 3.7 - 5.1 mmol/L Final Chloride 10/17/2023 103 97 - 105 mmol/L Final CO2 10/17/2023 23 22 - 30 mmol/L Final Anion Gap 10/17/2023 17 9 - 18 mmol/L Final Calcium, Total 10/17/2023 9.7 8.5 - 10.2 mg/dL Final Estimated Glomerular Filtration Ra* 10/17/2023 22 (L) >=60 mL/min/1.73m Final Estimated Glomerular Filtration Rate (eGFR) is calculated using the 2020 CKD-EPI creatinine equation. This equation utilizes serum creatinine, sex, and age as parameters. The creatinine assay has traceable calibration to isotope dilution-mass spectrometry. Refer to KDIGO guidelines for clinical interpretation. In patients with unstable renal function, e.g. those with acute kidney injury, the eGFR may not accurately reflect actual GFR. Culture, Urine 10/17/2023 No growth (<1,000 CFU/ml) Final PT Sec 10/17/2023 11.1 9.7 - 13.0 sec Final INR 10/17/2023 1.0 0.9 - 1.3 Final Vitamin K Antagonist (VKA) Therapeutic Range: INR 2 to 3 (Target INR of 2.5) Note: For patients treated with VKA drugs, such as warfarin, the [place] [employer] 2012 Guideline recommends [...] 2.5 to 3.5 (target INR of 3). Geornimo GH, et al. Chest 2012, 141:7S-47S Shital RA, et al. [facility] 2017, 70: 252-289 WBC 10/18/2023 18.32 (H) 3.70 - 11.00 k/uL Final RBC 10/18/2023 3.72 (L) 3.90 - 5.20 m/uL Final Hemoglobin 10/18/2023 11.8 11.5 - 15.5 g/dL Final Hematocrit 10/18/2023 37.0 36.0 - 46.0 % Final MCV 10/18/2023 99.5 80.0 - 100.0 fL Final MCH 10/18/2023 31.7 26.0 - 34.0 pg Final MCHC 10/18/2023 31.9 30.5 - 36.0 g/dL Final RDW-CV 10/18/2023 13.2 11.5 - 15.0 % Final Platelet Count 10/18/2023 165 150 - 400 k/uL Final MPV 10/18/2023 10.4 9.0 - 12.7 fL Final Absolute nRBC 10/18/2023 <0.01 <0.01 k/uL Final Glucose 10/18/2023 197 (H) 74 - 99 mg/dL Final The [place] Diabetes Association (ADA) provides guidance for cutoff [...] Standards of Medical Care in Diabetes 2016, [place] [employer]. Diabetes Care. 2016.39(Suppl 1). BUN 10/18/2023 25 (H) 7 - 21 mg/dL Final Creatinine 10/18/2023 1.91 (H) 0.58 - 0.96 mg/dL Final Sodium 10/18/2023 144 136 - 144 mmol/L Final Potassium 10/18/2023 4.0 3.7 - 5.1 mmol/L Final Chloride 10/18/2023 106 (H) 97 - 105 mmol/L Final CO2 10/18/2023 24 22 - 30 mmol/L Final Anion Gap 10/18/2023 14 9 - 18 mmol/L Final Calcium, Total 10/18/2023 8.0 (L) 8.5 - 10.2 mg/dL Final Estimated Glomerular Filtration Ra* 10/18/2023 25 (L) >=60 mL/min/1.73m Final Estimated Glomerular Filtration Rate (eGFR) is calculated using the 2020 CKD-EPI creatinine equation. This equation utilizes serum creatinine, sex, and age as parameters. The creatinine assay has traceable calibration to isotope dilution-mass spectrometry. Refer to KDIGO guidelines for clinical interpretation. In patients with unstable renal function, e.g. those with acute kidney injury, the eGFR may not accurately reflect actual GFR. Culture, Urine 10/18/2023 No growth (<1,000 CFU/ml) Final Calculus Type 10/18/2023 CALCULI/CALCULUS Final Calculus Color 10/18/2023 MEDINA Final Calculus Size and Weight 10/18/2023 Multiple pieces. 12.1620 GRAMS Final Calculus Composition 1 10/18/2023 60% Calcium Phosphate Final Calculus Composition 2 10/18/2023 40% Magnesium Ammonium Phosphate Final Calculus Analysis 10/18/2023 Final This test was developed and its performance characteristics determined by [facility]'s [facility] [place] ([facility] It has not been cleared or approved by the FDA. [facility] is regulated under CLIA as qualified to perform high-complexity testing. This test is used for clinical purposes. It should not be regarded as investigational or for research. Glucose 10/19/2023 131 (H) 74 - 99 mg/dL Final The [place] Diabetes Association (ADA) provides guidance for cutoff [...] Standards of Medical Care in Diabetes 2016, [place] [employer]. Diabetes Care. 2016.39(Suppl 1). BUN 10/19/2023 25 (H) 7 - 21 mg/dL Final Creatinine 10/19/2023 2.02 (H) 0.58 - 0.96 mg/dL Final Sodium 10/19/2023 142 136 - 144 mmol/L Final Potassium 10/19/2023 3.9 3.7 - 5.1 mmol/L Final Chloride 10/19/2023 105 97 - 105 mmol/L Final CO2 10/19/2023 26 22 - 30 mmol/L Final Anion Gap 10/19/2023 11 9 - 18 mmol/L Final Calcium, Total 10/19/2023 8.6 8.5 - 10.2 mg/dL Final Estimated Glomerular Filtration Ra* 10/19/2023 24 (L) >=60 mL/min/1.73m Final Estimated Glomerular Filtration Rate (eGFR) is calculated using the 2020 CKD-EPI creatinine equation. This equation utilizes serum creatinine, sex, and age as parameters. The creatinine assay has traceable calibration to isotope dilution-mass spectrometry. Refer to KDIGO guidelines for clinical interpretation. In patients with unstable renal function, e.g. those with acute kidney injury, the eGFR may not accurately reflect actual GFR. WBC 10/19/2023 12.49 (H) 3.70 - 11.00 k/uL Final RBC 10/19/2023 3.62 (L) 3.90 - 5.20 m/uL Final Hemoglobin 10/19/2023 11.8 11.5 - 15.5 g/dL Final Hematocrit 10/19/2023 36.8 36.0 - 46.0 % Final MCV 10/19/2023 101.7 (H) 80.0 - 100.0 fL Final MCH 10/19/2023 32.6 26.0 - 34.0 pg Final MCHC 10/19/2023 32.1 30.5 - 36.0 g/dL Final RDW-CV 10/19/2023 13.3 11.5 - 15.0 % Final Platelet Count 10/19/2023 168 150 - 400 k/uL Final MPV 10/19/2023 10.6 9.0 - 12.7 fL Final Neutrophils % 10/19/2023 80.4 % Final Abs Neut 10/19/2023 10.04 (H) 1.45 - 7.50 k/uL Final Lymphocytes % 10/19/2023 10.1 % Final Abs Lymph 10/19/2023 1.26 1.00 - 4.00 k/uL Final Monocytes % 10/19/2023 8.7 % Final Abs Menard 10/19/2023 1.09 (H) <0.87 k/uL Final Eosinophils % 10/19/2023 0.2 % Final Abs Eosin 10/19/2023 0.03 <0.46 k/uL Final Basophils % 10/19/2023 0.2 % Final Abs Baso 10/19/2023 <0.03 <0.11 k/uL Final Immature Granulocytes % 10/19/2023 0.4 % Final Abs Immature Gran 10/19/2023 0.05 <0.10 k/uL Final NRBC 10/19/2023 0.0 /100 WBC Final Absolute nRBC 10/19/2023 <0.01 <0.01 k/uL Final Diff Type 10/19/2023 Auto Final Glucose 10/20/2023 92 74 - 99 mg/dL Final The [place] Diabetes Association (ADA) provides guidance for cutoff [...] Standards of Medical Care in Diabetes 2016, [place] [employer]. Diabetes Care. 2016.39(Suppl 1). BUN 10/20/2023 21 7 - 21 mg/dL Final Creatinine 10/20/2023 1.90 (H) 0.58 - 0.96 mg/dL Final Sodium 10/20/2023 142 136 - 144 mmol/L Final Potassium 10/20/2023 Final Unable to assay due to interference from hemolysis. Suggest reorder as clinically indicated. Chloride 10/20/2023 103 97 - 105 mmol/L Final CO2 10/20/2023 25 22 - 30 mmol/L Final Anion Gap 10/20/2023 14 9 - 18 mmol/L Final Calcium, Total 10/20/2023 9.2 8.5 - 10.2 mg/dL Final Estimated Glomerular Filtration Ra* 10/20/2023 25 (L) >=60 mL/min/1.73m Final Estimated Glomerular Filtration Rate (eGFR) is calculated using the 2020 CKD-EPI creatinine equation. This equation utilizes serum creatinine, sex, and age as parameters. The creatinine assay has traceable calibration to isotope dilution-mass spectrometry. Refer to KDIGO guidelines for clinical interpretation. In patients with unstable renal function, e.g. those with acute kidney injury, the eGFR may not accurately reflect actual GFR. WBC 10/21/2023 8.61 3.70 - 11.00 k/uL Final RBC 10/21/2023 3.64 (L) 3.90 - 5.20 m/uL Final Hemoglobin 10/21/2023 11.5 11.5 - 15.5 g/dL Final Hematocrit 10/21/2023 35.1 (L) 36.0 - 46.0 % Final MCV 10/21/2023 96.4 80.0 - 100.0 fL Final MCH 10/21/2023 31.6 26.0 - 34.0 pg Final MCHC 10/21/2023 32.8 30.5 - 36.0 g/dL Final RDW-CV 10/21/2023 13.1 11.5 - 15.0 % Final Platelet Count 10/21/2023 158 150 - 400 k/uL Final MPV 10/21/2023 10.7 9.0 - 12.7 fL Final Absolute nRBC 10/21/2023 <0.01 <0.01 k/uL Final Glucose 10/21/2023 180 (H) 74 - 99 mg/dL Final The [place] Diabetes Association (ADA) provides guidance for cutoff [...] Standards of Medical Care in Diabetes 2016, [place] [employer]. Diabetes Care. 2016.39(Suppl 1). BUN 10/21/2023 26 (H) 7 - 21 mg/dL Final Creatinine 10/21/2023 2.04 (H) 0.58 - 0.96 mg/dL Final Sodium 10/21/2023 142 136 - 144 mmol/L Final Potassium 10/21/2023 3.5 (L) 3.7 - 5.1 mmol/L Final Chloride 10/21/2023 105 97 - 105 mmol/L Final CO2 10/21/2023 27 22 - 30 mmol/L Final Anion Gap 10/21/2023 10 9 - 18 mmol/L Final Calcium, Total 10/21/2023 8.7 8.5 - 10.2 mg/dL Final Estimated Glomerular Filtration Ra* 10/21/2023 23 (L) >=60 mL/min/1.73m Final Estimated Glomerular Filtration Rate (eGFR) is calculated using the 2020 CKD-EPI creatinine equation. This equation utilizes serum creatinine, sex, and age as parameters. The creatinine assay has traceable calibration to isotope dilution-mass spectrometry. Refer to KDIGO guidelines for clinical interpretation. In patients with unstable renal function, e.g. those with acute kidney injury, the eGFR may not accurately reflect actual GFR. Stone composition: Calculus Composition 1 60% Calcium Phosphate Calculus Composition 2 40% Magnesium Ammonium Phosphate Images: US 12/06/23: Right Kidney: -Renal length: 8.5 cm -Parenchyma: Parenchyma echogenicity is increased. Diffuse parenchymal thinning present. Diffuse -Collecting system: No hydronephrosis. -Calculus: No echogenic, shadowing calculus. -Lesion: 1.3 cm lower pole cyst with no solid internal component. Left Kidney: Technically challenging evaluation with portions of the upper and lower pole obscured -Renal length: Approximately7.2 cm -Parenchyma: Normal parenchymal echogenicity. Diffuse parenchymal thinning present. -Collecting system: Mild to moderate hydronephrosis, new. -Calculus: No echogenic, shadowing calculus. -Lesion: None. Bladder: Normal sonographic appearance. KUB: Evaluation of the renal shadows, expected course of the ureters and urinary bladder obscured by overlying colonic stool. No radiopaque density identified overlying the renal shadows, expected course of the ureters or urinary bladder. Bowel:No dilated bowel loops. Moderate colonic stool present throughout the colon to the level of the cecum. Other: Vascular atherosclerotic calcifications. Right upper quadrant cholecystectomy clips. Bones: Left hip prosthesis. Degenerative changes. Assessment/Plan: N20.0 Nephrolithiasis (primary encounter diagnosis) N13.30 Hydronephrosis, unspecified hydronephrosis type - Reviewed US and KUB showing no further L renal stones but noted hydronephrosis - Consider CT scan for further assessment of stone fragment vs stricture; will reach out to Dr. Huynh to confirm - [facility] sent off, and we can review results in a couple weeks. - Plan for eventual US and KUB in about 6 months for reassessment General stone prevention guidelines: Fluid intake - #1 reason why people form stones - not enough fluid! Recommend increasing water/fluid intake (2.5-3 L/day or 80-100 fluid oz/day), including nighttime hydration. We recommend emptying your bladder and drinking 1-2 glasses of water prior to bed, then getting up at least once during the night to empty your bladder again and drinking 1 more glass of water before returning to bed. All fluids count but water is best. Bertie intake - Recommend increasing dietary citrate intake. Adding more fruits & vegetables to your diet; in particular citrus fruits (clary/limes/lemonade/melons/to matoes). One can add 4 oz of lemon juice diluted in 32 oz of water daily to start. If diet changes are too difficult we can prescribe a medication, potassium citrate, that can help increase your citrate levels. Sodium intake - Recommend a low sodium diet <2000mg/d. Read food labels, choose low sodium options, avoid canned, frozen or boxed meals, eat more fresh foods, and possibly add a fish oil supplement daily (2000mg/d) Calcium intake - Recommend 2-3 servings of calcium per day. Not advisable for stone patients to restrict calcium intake as it is very important for good bone, muscle, and tissue health. Decrease soft drinks (has phosphoric acid). Protein intake: about 1 g of protein per kilo body weight per day. Patients with high urine oxalate: avoid spinach, nuts, seeds, potatoes. Foods like banana, avocado, soybean, pascale, cereals are good for you. Drink enough fluids each day. If you are not producing enough urine, your health care provider will recommend you drink at least 3 liters of liquid each day. This equals about 3 quarts (about ten 10-ounce glasses). This is a great way to lower your risk of forming new stones. Remember to drink more to replace fluids lost when you sweat from exercise or in hot weather. All fluids count toward your fluid intake. But it's best to drink mostly no-calorie or low-calorie drinks. This may mean limiting sugar-sweetened or alcoholic drinks. Knowing how much you drink during the day can help you understand how much you need to drink to produce 2.5 liters of urine. Use a household measuring cup to measure how much liquid you drink for a day or two. Drink from bottles or cans with the fluid ounces listed on the label. Keep a log, and add up the ounces at the end of the day or 24-hour period. Use this total to be sure you are reaching your daily target urine amount of at least 85 ounces (2.5 liters) of urine daily. Health care providers recommend people who form cystine stones drink more liquid than other stone formers. Usually 4 liters of liquid is advised to reduce cystine levels in your urine. Reduce the amount of salt in your diet. This tip is for people with high sodium intake and high urine calcium or cystine. Sodium can cause both urine calcium and cystine to be too high. Your health care provider may advise you to avoid foods that have a lot of salt. The Centers for Disease Control (CDC) and other health groups advise not eating more than 2,300 mg of salt per day. The following foods are high in salt and should be eaten in moderation: Cheese (all types) Most frozen foods and meats, including salty cured meats, deli meats (cold cuts), hot dogs, bratwurst and sausages Canned soups and vegetables Breads, bagels, rolls and baked goods Salty snacks, like chips and pretzels Bottled salad dressings and certain breakfast cereals Pickles and olives Casseroles, other mixed foods, pizza and lasagna Canned and bottled sauces Certain condiments, table salt and some spice blends Eat the recommended amount of calcium. If you take calcium supplements, make sure you aren't getting too much calcium. On the other hand make sure you aren't getting too little calcium either. Talk with your health care provider or dietitian about whether you need supplements. Good sources of calcium to choose from often are those low in salt. Eating calcium-rich foods or beverages with meals every day is a good habit. There are many non-dairy sources of calcium, such as calcium-fortified non-dairy milks. There are good choices, especially if you avoid dairy. You can usually get enough calcium from your diet without supplements if you eat lumaa-yw-rljf servings of calcium-rich food. Many foods and beverages have calcium in them. Some foods and beverages that might be easy to include on a daily basis with meals are: Table of Foods Rich in Calcium Eat plenty of fruits and vegetables. Eating at least five servings of fruits and vegetables daily is recommended for all people who form kidney stones. Eating fruits and vegetables give you potassium, fiber, magnesium, antioxidants, phytate and citrate, all of which may help keep stones from forming. A serving means one piece of fruit or one potato or one cup of raw vegetables. For cooked vegetables, a serving is cup. If you are worried you may not be eating the right amount of fruits and vegetables, talk to your health care provider about what will be best for you. Eat foods with low oxalate levels. This recommendation is for patients with high urine oxalate. Eating calcium-rich foods (see table above) with meals can often control the oxalate level in your urine. Urinary oxalate is controlled because eating calcium lowers the oxalate level in your body. But if doing that does not control your urine oxalate, you may be asked to eat less of certain high-oxalate foods. Nearly all plant foods have oxalate, but a few foods contain a lot of it. These include spinach, rhubarb and almonds. It is usually not necessary to completely stop eating foods that contain oxalate. This needs to be determined individually and depends on why your oxalate levels are high in the first place. Eat less meat. If you make cystine or calcium oxalate stones and your urine uric acid is high, your health care provider may tell you to eat less animal protein. If your health care provider thinks your diet is increasing your risk for stones, he or she will tell you to eat less meat, fish, seafood, poultry, pork, bazan, mutton and game meat than you eat now. This might mean eating these foods once or twice rather than two or three times a day, fewer times during the week, or eating smaller portions when you do eat them. The amount to limit depends on how much you eat now and how much your diet is affecting your uric acid levels. https://www.urologyhealth.org/ur teey-a-z/k/kidney-stones#Preven tion%20of%20Future%20Stones RTC in 6 months w/ new imaging. I spent a total of 20 minutes on the date of the service which included preparing to see the patient, edle-sy-rety patient care, completing clinical documentation, obtaining and/or reviewing separately obtained history, counseling and educating the patient/family/caregiver, ordering medications, tests, or procedures, and communicating results to the patient/family/caregiver. Mark Cesar PA-C documented in this encounter [facility] 12-06-2023 Note Patient Outreach (UR OLMN) JESÚS NOLAN ([id number]) 1935 F Date Time Provider Department 12/06/23 MARK CESAR UROLUCIANA During your visit today, we recorded the following information about you: Allergies As of Date: 12/06/2023 (No Known Allergies) Date Reviewed: 12/06/2023 Reviewed by: Kya Rodriguez OCCA - Fully Assessed Visit Diagnosis:Screening for genitourinary condition [Z13.89] Order(s):URINALYSIS, REFLEX MICROSCOPIC [IBY9090] Order #: [id number]. #:[id number] Prescriptions as of 12/09/2023 - acetaminophen (TYLENOL EXTRA STRENGTH) 500 mg tablet Take 2 tablets by mouth every 6 hours as needed for pain. - tamsulosin (FLOMAX) 0.4 mg Take 1 capsule by mouth once daily. 30 minutes after the same meal each day. - VITAMIN C 500 mg tablet [...] a week. Problem List As Of Date 12/06/2023 Noted Resolved Abnormal urinalysis [R82.90] 09/07/2023 History of recurrent UTIs [Z87.440] 09/07/2023 Staghorn calculus [N20.0] 09/07/2023 Essential hypertension [I10] 09/07/2023 Constipation [K59.00] 09/07/2023 Arthritis [M19.90] 09/07/2023 Status post hip surgery [Z98.890] 09/07/2023 Stage 4 chronic kidney disease (HCC) [N18.4] 04/12/2021 Generalized anxiety disorder [F41.1] 09/23/2023 Hallucinations [R44.3] 09/01/2023 Hypokalemia [E87.6] 09/23/2023 Anemia of chronic disease [D63.8] 09/23/2023 Pre-op evaluation [Z01.818] 09/23/2023 Calculus, kidney [N20.0] 10/19/2023 Delirium [R41.0] 10/21/2023 Encounter Status:Closed by EPIC, PRODUSER on 12/09/23 [facility] 12-06-2023 History of Presen t illness Narrative Radiology Service Progress Note PATIENT NAME: Jesús Nolan DATE OF SERVICE: December 06, 2023 TIME: 1:47 PM PATIENT IDENTITY VERIFICATION COMPLETED USING TWO (2) IDENTIFIERS: Name and Date of confirmed by patient verbally. FALL SCREENING: Has the patient had 2 falls in the last year or 1 fall with injury or currently using an Ambulatory Assistive Device (Walker, Cane, Wheelchair, Crutches, etc.)? Yes, Patient High Risk for Falls What interventions were put in place to prevent falls during this visit? [place] Risk Wristband Applied PATIENT GENDER DATA: Female. status: : No status: NO. PATIENT RELEVANT IMPLANT DATA REVIEWED: Not Applicable PATIENT PRESENTS WITH AN IMPLANTABLE OR ATTACHED FOREIGN EXCHANGE STUDENT COORDINATOR: No RADIOLOGY DEPARTMENT: General X-ray: Exam(s) Completed: Abdomen X-Ray: Abdomen with Obliques PERIPHERAL IV DATA: Not applicable SIGNED BY: RT Eveline(R) December 06, 2023 1:47 PM documented in this encounter [facility] 10-27-2023 Note HNO ID: [id number] Author: RICCO GARLAND MD Service: ? Author Type: Physician Type: Progress Notes Filed: 10/27/2023 13:12 Note Text: CYSTOSCOPY PROCEDURE M.D.'S HOPS NOTE Pertinent History and Physical Exam [...] Ricco Garland MD Director, Surgical Stone Disease [facility] [place], [facility] Pager [phone] 10/27/2023 [facility] 10-27-2023 Note HNO ID: [id number] Author: CHRISTA FLANAGAN RN Service: ? Author [...] Visit completed when applicable. Christa Flanagan RN [facility] 10-21-2023 Note HNO ID: [id number] Author: JACOB PALMER MD Service: Urology Author Type: Resident Type: Progress Notes Filed: 10/21/2023 06:46 Note Text: [facility] [place] [facility] PROGRESS NOTE Name: Jessú Nolan Bed: G090 [id number] Date: 10/21/2023 After Hours [facility] Service Pager: [phone] ASSESSMENT Jesús Nolan is a 88 year [...] physician Dr Dada Esteves MD [facility] PGY2 [facility] [place] For weekend or after hours issues [place] [phone] Active Problems Anemia of chronic disease, POA- [...] 1.91* GLUC 92 131* 197* Imaging Reviewed [facility] 10-20-2023 Note HNO ID: [id number] Author: LORENA PRESTON [facility] Service: Pharmacy Author Type: Pharmacist Type: Plan [...] Solid Organ Transplant and Internal Medicine Clinical Canvassing Manager Phone: [phone] Serum creatinine: 2.02 mg/dL (H) 10/19/23 0615 [...] Medications These medications were sent to e- [facility]/pharmacy #[address] [place] [address] [place] [address] amoxicillin 250 mg capsule tamsulosin 0.4 mg You can get these medications from any pharmacy You don't need a prescription for these medications acetaminophen 500 mg tablet [facility] 10-20-2023 Note HNO ID: [id number] Author: RICCO GARLAND MD Service: Urology Author [...] Garland MD, FACS Director, Surgical Stone Disease, [facility] [place] correctional therapy director, [facility] Pager [phone] 10/20/2023 [facility] 10-20-2023 Note HNO ID: [id number] Author: YESSICA LEE, [place] Service: Pharmacy Author Type: Ammonium Sulfate Operator Type: Plan of Care Filed: 10/20/2023 08:37 Note Text: Insurance investigation completed Patient has active prescription insurance: Yes - Patient's insurance is in-network with [facility] Insurance loaded into [place]: Yes Test claim was completed to verify insurance is active: Successful Any questions, please contact your medication procurement coordinator. Pager #: [phone] [facility] 10-20-2023 Note HNO ID: [id number] Author: RICCO GARLAND MD Service: Urology Author [...] mental status. Her stone came back infected (zczzjzutl-yxhoajyh-yhbpozzwi) and even though there are no other signs of sepsis at this time, we need to watch for this as well. Ricco Garland MD, FACS Director, Surgical Stone Disease, [facility] [place] correctional therapy director, [facility] Pager [phone] 10/20/2023 [facility] 10-20-2023 Note HNO ID: [id number] Author: JACOB PALMER MD Service: Urology Author Type: Resident Type: Progress Notes Filed: 10/20/2023 06:56 Note Text: [facility] [place] [facility] PROGRESS NOTE Name: Jesús Nolan Bed: G090 [id number] Date: 10/20/2023 After Hours [facility] Pager: [phone] ASSESSMENT Jesús Nolan is a 88 year [...] Today Discussed with attending physician Dr Dada Esteves MD [facility] PGY2 [facility] [place] For weekend or after hours issues [place] [phone] Active Problems Anemia of chronic disease, POA- [...] 2.11* GLUC 131* 197* 129* Imaging Reviewed [facility] 10-19-2023 Note HNO ID: [id number] Author: SERG ROTH LSW Service: Care Management Author Type: Data Migration Lead Type: Care Mgt Initial Assessment Filed: 10/19/2023 16:08 Note Text: CARE MANAGEMENT: ASSESSMENT AND DISCHARGE PLAN SERVICE DATE: October 19, 2023 SERVICE TIME: 4:04 PM PCP: Brina Cordero MD Primary Contact: Extended Emergency Contact Information Primary Emergency Contact: [facility] Mobile Relation: Daughter Admission Status: Observation Insurance Provider: MEDICARE A AND B Discharge Planning requested by: Per Department Practice Potential Transition Plans Prison/Supervised Living Advance Directives Current Advance Directive: None Polisher Implant Attempted to Assist with AD Completion: Yes Action: Education Provided Current Living Arrangements and Support Lives with: Other person(s) Assisted Living Type of Residence: Assisted Living Facility Care Facility Name: [facility] [phone] Support: Family members How do you manage to accomplish the following: Needs Assistance: Ambulation;Bathe/Shower;Dress;Me als/Meal Prep;Going to the bathroom;Medication Management;Transportation to appointments/community Current Services/Equipment Current Post-Acute Service(s): None Discharge Planning Patient Goal(s): Be able to go home, General wellness [place] Explained: [place] Given: No Reason Not Given: No placements necessary Are you interested in bedside delivery of your medications? Yes Discharge Planning Participant(s): Patient;Family Patient/Family Comments: Dtr completed assessment. Pt is extremely [place]UR[place] Caregiver Assessment: Caregiver is ready, willing and able to meet the patient's needs as recommended by the inter-professional team: Yes Transport at Discharge: Transportation Arrangements: Car Needs Prior to Discharge: Needs Prior to Discharge: None Post-Acute Discharge Plan: Chart reviewed and initial assessment completed. Met with pt at bedside. Pt is very [place]. Vision is limited as well. She gave permission to speak with her dtr, Maranda. Call placed to Maranda. Pt lives in at [facility] ([phone]). The assisted living assists with meals, meds, and some personal care as needed. Plan is to return to assisted living at [place]. Dtr will transport. Call placed to [facility]. Spoke with Mahsa in admissions. She [...] 19, 2023 TIME: 4:04 PM CONTACT #: [phone] [facility] 10-19-2023 Note HNO ID: [id number] Author: JACOB PALMER MD Service: Urology Author Type: Resident Type: Progress Notes Filed: 10/19/2023 06:55 Note Text: [facility] UROLOGY PROGRESS NOTE Name: Jesús Nolan Bed: G090 033/G090-33 Date: 10/19/2023 After Hours [facility] Service Pager: [phone] ASSESSMENT Jesús Nolan is a 88 year [...] physician Dr Dada Esteves MD Urology PGY2 [facility] [place] For weekend or after hours issues [place] [phone] Active Problems Anemia of chronic disease, POA- [...] 2.11* GLUC -- 197* 129* Imaging Reviewed [facility] 10-18-2023 Note HNO ID: [id number] Author: JACOB PALMER MD Service: Urology Author Type: Resident Type: Progress Notes Filed: 10/18/2023 18:13 Note Text: [facility] [place] UROLOGY PROGRESS NOTE Name: Jesús Nolan Bed: G090 033/G090-33 Date: 10/18/2023 After Hours [facility] Urology Service Pager: [phone] ASSESSMENT Jesús Nolan is a 88 year [...] physician Dr Dada Esteves MD [facility] PGY2 [facility] [place] For weekend or after hours issues [place] [phone] Active Problems Anemia of chronic disease, POA- [...] 30* CREAT 2.11* GLUC 129* Imaging Reviewed [facility] 10-18-2023 Note HNO ID: [id number] Author: JON CERDA SRNA Service: ? Author [...] October 18, 2023 TIME: 8:33 AM CSN: [id number] [facility] 10-18-2023 Note HNO ID: [id number] Author: JON CERDA SRNA Service: ? Author [...] October 18, 2023 TIME: 8:32 AM CSN: [id number] [facility] 10-18-2023 Note HNO ID: [id number] Author: JON CERDA SRNA Service: ? Author [...] October 18, 2023 TIME: 8:27 AM CSN: [id number] [facility] 10-17-2023 Note HNO ID: [id number] Author: RONEL JUAN RN Service: Nursing Author [...] maranda and son in law at bedside. [facility] 10-17-2023 Note HNO ID: [id number] Author: RONEL JUAN, RN Service: Nursing Author Type: Registered Nurse Type: Progress Notes Filed: 10/17/2023 11:01 Note [place]: [place] [phone] Urology: Jesús Nolan G90/33 patient is here as a direct admit. Awaiting orders. Ronel Juan RN [facility] 09-09-2023 Evaluation note Encounter Date Diagnosis Assessment Notes Aug, Acute UTI (ICD-10 - N39.0) Finish antibiotic prescribed at [facility]. Aug, Staghorn calculus (ICD-10 - N20.0) Plan per surgeon in [place] - has appt for preoperative testing Aug, Obstructive uropathy (ICD-10 - N13.9) Aug, Metabolic encephalopathy (ICD-10 - G93.41) improved on proper antibiotics Aug, CKD (chronic kidney disease) stage 4, GFR 15-29 ml/min (ICD-10 - N18.4) stable, has televisit with her Core Composer Machine Tender in near future. Quu Other [id number] NotePatient Outreach (UROLMN) OVIDIOJESÚS ([id number]) 1935 F Date Time Provider Department 09/07/23 RICCO GARLAND During your visit today, we recorded the following information about you: Allergies As of Date: 09/07/2023 (No Known Allergies) Date Reviewed: 09/07/2023 Reviewed by: Karen Calvillo OCCA - Fully Assessed Visit Diagnosis:Screening for genitourinary condition [Z13.89] Order(s):URINALYSIS, REFLEX MICROSCOPIC [PTD9640] Order #: [id number]. #:[id number] Prescriptions as of 09/10/2023 - VITAMIN C [...] hip surgery [Z98.890] 09/07/2023 Encounter Status:Closed by CHANDLER TURNERUSEVelma on 09/10/23[facility] 09-07-2023 NoteHNO ID: [id number] Author: Ricco Garland MD Service: ? Author [...] hardly hear me. Though not listed in [facility], patient's daughter indicates Dr. Harsh Clayton recommended [...] based on size, location, hounsfield units and tpjw-yj-rdgrk distance: 0% 3. Ureteroscopy - risks of [...] with more than 50% of the total honw-kw-trar time of the visit devoted to patient counseling/coordination of care. Rcico Garland MD, FACS Director, Surgical Stone Disease, [facility] [place] correctional therapy director, [facility] [employer] Pager [phone] 09/07/2023[facility]09-15-2023 Evaluation note* Encounter Date Diagnosis Assessment Notes Treatment Notes Treatment Clinical Notes May, Bilateral impacted cerumen (ICD-10 - H61.23) Quu Other 08-30-2023 Evaluation note* Encounter Date Diagnosis [...] chronic disease (ICD-10 - D63.8) As above. Quu Other Evaluation noteNo InformationNort Rip van Wafels Other Evaluation note* Diagnosis Onset Date Resolution Status Acute metabolic encephalopathy acute PRESTON (acute kidney injury) ac debi Constipation acute Dementia acute Hallucinations acute Hypertension acute Right nephrolithiasis acute Staghorn calculus acute UTI (urinary tract infection) acute [facility] Work Phone: Evaluation note* Diagnosis Hydronephrosis with urinary obstruction due to renal calculus- Primary Nephrolithiasis Calculus of kidney [facility] Diagnosis Nephrolithiasis- Primary Calculus of kidney Nephrolithiasis Calculus of kidney [facility] Diagnosis Nephrolithiasis Calculus of kidney [facility]* Diagnosis Nephrolithiasis Calculus of kidney documented [facility]* Diagnosis Nephrolithiasis- Primary Calculus of kidney Hydronephrosis, unspecified hydronephrosis type documented in this encounter [facility]* Diagnosis Nephrolithiasis- Primary Calculus of kidney documented in this [facility]* Diagnosis Screening for genitourinary condition Screening for other and unspecified genitourinary condition documented in this encounter [facility] general Narrative - Reported* Type Description Date [...] History CHOLECYSTECTOMY Hospitalization History SEE SURGICAL HX Quu Other Reason for referral (narrative)* Diagnostic Procedure Only (Routine) - Pending Review Specialty Diagnoses / Procedures Referred By Contac t Referred To Contact MOLECULAR & FUNCTIONAL IMAGING Diagnoses Hydronephrosis with urinary obstruction due to renal calculus Procedures NM RENAL FLOW/FXN W PHARM KIDNEY IMG MORPHOLOGY VASCULAR FLOW 1 W/RX Ricco Garland MD [address] [place] [address] Molecular & Functional Imaging [address] [place] [address] Referral ID Status Reason Start Date Expiration Date Visits Requested Visits Authorized [id number] Pending Review Auto-Generat ed Referral 10/07/2024 1 1 [facility] for referral (narrative)* Diagnostic Procedure Only (Routine) - Closed Specialty Diagnoses / Procedures Referred By Megha t Referred To Contact XR IMAGING Diagnoses Nephrolithiasis Procedures XR ABDOMEN 3V KUB W/OBLIQUES RADIOLOGIC EXAM ABDOMEN 3+ VIEWS Ricco Garland MD [address] [place] [address] Xr Imaging [place] [address] Referral ID Status Reason Start Date Expiration Date V isits Requested Visits Authorized [id number] Closed Auto-Generate d Referral 10/27/2023 11/25/2024 1 1 [facility] for referral (narrative)* Diagnostic Procedure Only (Routine) - Closed Specialty Diagnoses / Procedures [facility] Referred To Contact US IMAGING Diagnoses Nephrolithiasis Procedures US KIDNEY/BLADDER US RETROPERITONEAL REAL TIME W/IMAGE COMPLETE Ricco Garland MD [address] [place] [id number] Us Imaging [facility]95 Referral ID Status Reason Start Date Expiration Date V isits Requested Visits Authorized [id number] Closed Auto-Generate d Referral 10/27/2023 11/25/2024 1 1 [facility] for referral (narrative)* Diagnostic Procedure Only (Routine) - Authorized Specialty Diagnoses / Procedures Referred By Contac t Referred To Contact XR IMAGING Diagnoses Nephrolithiasis Procedures XR ABDOMEN 3V KUB W/OBLIQUES RADIOLOGIC EXAM ABDOMEN 3+ VIEWS Mark Cesra PA-C [address] [place] [address] Xr Imaging [facility] Referral ID Status Reason Start Date Expiration Date Visits Requested Visits Authorized [id number] Authorized Auto-Generat ed Referral 12/06/2023 01/04/2025 1 1 * Diagnostic Procedure Only (Routine) - Authorized Specialty Diagnoses / Procedures Referred By Megha frederick Referred To Contact US IMAGING Diagnoses Nephrolithiasis Procedures US KIDNEY/BLADDER US RETROPERITONEAL REAL TIME W/IMAGE COMPLETE Mark Cesar PA-C [address] [place] [phone] Us Imaging [facility] Referral ID Status Reason Start Date Expiration Date Visits Requested Visits Authorized [id number] Authorized Auto-Generat ed Referral 12/06/2023 01/04/2025 1 1 [facility] for visit Narrative* Diagnostic Procedure Only (Routine) - Closed Specialty Diagnoses / Procedures Referred By Megha frederick Referred To Contact US IMAGING Diagnoses Nephrolithiasis Procedures US KIDNEY/BLADDER US RETROPERITONEAL REAL TIME W/IMAGE COMPLETE Ricco Garland MD [address] [place] [address] Us Imaging [facility] Referral ID Status Reason Start Date Expiration Date V isits Requested Visits Authorized [id number] Closed Auto-Generate d Referral 10/27/2023 11/25/2024 1 1 [facility] Advance Directives No Advanced Directives Records FoundDocuments on File Type Date Recorded Patient Sandblasting Supervisor Expl anation Advance Directives and Living Will Power of Bail Attacher Documents on File Type Date Recorded Patient Sandblasting Supervisor Expl anation Advance Directives and Living Will Power of Bail Attacher Latest Code Status on File Code Status Date Activated Date Inactivated Comments DNR-CCA 04/05/2020 7:40 AM Full Code 04/02/2020 11:53 PM 04/05/2020 7:40 AM Documents on File Type Date Recorded Patient Sandblasting Supervisor Expl anation Advance Directives and Livin g Will Advance Directives and Livin g Will 04/09/2020 4:57 PM Power of Bail Attacher Power of Bail Attacher 04/09/2020 4:57 PM Latest Code Status on File Code Status Date Activated Date Inactivated Comments DNR-CCA 04/05/2020 7:40 AM 04/06/2020 2:39 PM Full Code 04/02/2020 11:53 PM 04/05/2020 7:40 AM Documents on File Type Date Recorded Patient Sandblasting Supervisor Expl anation ACP-Advance Directive ACP-Advance Directive 04/09/2020 4:57 PM ACP-Power of Bail Attacher ACP-Power of Bail Attacher 04/09/2020 4:57 PM DNR Documentation 04/09/2020 4:57 PM Latest Code Status on File Code Status Date Activated Date Inactivated Comments Full Code 05/10/2020 3:57 PM Full Code 05/10/2020 10:16 AM 05/10/2020 3:48 PM DNR-CCA 04/05/2020 7:40 AM 04/06/2020 2:39 PM Documents on File Type Date Recorded Patient Sandblasting Supervisor Expl anation ACP-Advance Directive ACP-Advance Directive 04/09/2020 4:57 PM ACP-Do Not Resuscitate 05/16/2020 1:04 PM ACP-Power of Bail Attacher ACP-Power of Bail Attacher 04/09/2020 4:57 PM DNR Documentation 04/09/2020 4:57 PM Latest Code Status on File Code Status Date Activated Date Inactivated Comments Full Code 05/10/2020 3:57 PM 05/15/2020 9:57 PM Full Code 05/10/2020 10:16 AM 05/10/2020 3:48 PM DNR-CCA 04/05/2020 7:40 AM 04/06/2020 2:39 PM Documents on File Type Date Recorded Patient Sandblasting Supervisor Expl anation ACP-Advance Directive ACP-Advance Directive 04/09/2020 4:57 PM ACP-Advance Directive 06/13/2020 10:59 AM ACP-Do Not Resuscitate 05/16/2020 1:04 PM ACP-Do Not Resuscitate ACP-Do Not Resuscitate 06/13/2020 10:59 AM ACP-Power of Bail Attacher ACP-Power of Bail Attacher 04/09/2020 4:57 PM DNR Documentation 04/09/2020 4:57 PM Documents on File Type Date Recorded Patient Sandblasting Supervisor Expl anation ACP-Advance Directive ACP-Do Not Resuscitate ACP-Power of Bail Attacher ACP-Advance Directive 06/13/2020 10:59 AM ACP-Do Not Resuscitate 06/13/2020 10:59 AM ACP-Do Not Resuscitate 05/16/2020 1:04 PM ACP-Advance Directive 04/09/2020 4:57 PM ACP-Do Not Resuscitate 04/09/2020 4:57 PM ACP-Power of Bail Attacher 04/09/2020 4:57 PM Advance Directive Response Recorded Date/ Time Advance Directives No August 31, 2023 8:19pm Reason for Referral Status Reason Specialty Diagnoses / Procedures Referre d By Contact Referred To Contact Open Radiology Diagnoses Chronic kidney disease, stage IV (severe) ([facility]) Procedures US RENAL COMPLETE IbHerberth hernandezdavid U, DO Status Reason Specialty Diagnoses / Procedures Referred By Contact Referred To Contact Open Specialty Services Required Physical Therapy Diagnoses General weakness Ricco Sánchez MD [address] [place] [address], [place] [address] Specialty Diagnoses / Procedures Referred By Contac t Referred To Contact CT IMAGING Diagnoses Nephrolithiasis Procedures CT FLANK WO IVCON CT ABD & PELVIS W/O CONTRAST Mark Cesar PA-C [address] [id number] [place] [address] Referral ID Status Reason Start Date Expiration Date Visits Requested Visits Authorized [id number] Pending Review Auto-Generat ed Referral 12/08/2023 01/06/2025 1 1 Assessments Diagnosis Chronic kidney disease, stage IV (severe) ([facility]) Chronic kidney disease, Stage IV (severe) Diagnosis Closed displaced intertrochanteric fracture of left femur, initial encounter ([facility]) Diagnosis Pain of left hip joint [...] Care Everywhere. * Hip Fracture: Surgery: Post-op (Burundian) documented in this encounter* Discharge Instr - [...] most local grocery stores, pharmacies, and chain [employer]-stores. ? If you have any questions about [...] Hospital Unit/Room#: 0311/0311-01 Discharging Unit Phone Number: [phone] Emergency Contact: Extended Emergency Contact Information Primary Emergency Contact: Isaias Nolan Address: [address] [place] [address] Relation: Spouse Secondary Emergency Contact: Maranda Da [...] Dependent Dressing Dependent Toileting Dependent Feeding Independent Sample Case Porter Assisted Med Delivery whole Wound Care Documentation [...] Readmission: 15 Discharging to Facility/ Agency Name: [facility] Address:[address] [place] [address] Dialysis Facility (if applicable) Name: Address: Dialysis Schedule: Phone: Fax: Mamma Logist/Data Migration Lead signature: PHYSICIAN SECTION Prognosis: {Prognosis:3325782607} Condition at Discharge: { Patient Condition:425753493} Rehab Potential (if transferring to Rehab): {Prognosis:5821850442} Recommended Labs or Other Treatments After Discharge: Physician Certification: I certify the above information and transfer of Jesús Nolan is necessary for the continuing treatment of the diagnosis listed and that she requires Prison Facility for greater 30 days. Update Admission H&P: {CHP DME Changes in HandP:507578611} PHYSICIAN SIGNATURE: {Esignature:036433066} documented in this encounter* Discharge Instr - [...] Agent's Name Healthcare Agent's Phone Number 05/10/20 1045 Unknown, patient unable to respond due to medical condition -- -- -- -- -- Admitting Physician: Chele Lagos MD PCP: Justino Dhaliwal DO Discharging Nurse: Nirmala WESLEY Discharging Hospital Unit/Room#: 7K-19/019-A Discharging Unit Emergency Contact: Extended Emergency Contact Information Primary Emergency Contact: Isaias Nolan Address: [address] [place] [address] [address] [place] [address] Relation: Spouse Secondary Emergency Contact: Maranda Da Silva Relation: Child Past Surgical History: Past Surgical History: Procedure Laterality Date CHOLECYSTECTOMY HYSTERECTOMY JOINT REPLACEMENT knee REVISION TOTAL HIP ARTHROPLASTY Left 05/10/2020 HARDWARE REMOVAL LEFT HIP, CONVERSION TO LEFT TOTAL HIP performed by Chele Lagos MD at [facility] OR Immunization History: There is no [...] Assisted Dressing Assisted Toileting Assisted Feeding Independent Sample Case Porter Assisted Med Delivery whole Wound Care Documentation [...] Readmission: 20 Discharging to Facility/ Agency Name: [facility] Address: [address] [place], [place] [id number] Dialysis Facility (if applicable) Name: Address: Dialysis Schedule: Phone: Fax: Mamma Logist/Data Migration Lead signature: ICIAN SECTION Prognosis: Fair Condition at Discharge: Stable Rehab Potential (if transferring to Rehab): Fair Recommended Labs or Other Treatments After Discharge: n/a Physician Certification: I certify the above information and transfer of Jesús Nolan is necessary for the continuing treatment of the diagnosis listed and that she requires Prison Facility for greater 30 days. Update Admission [...] not made for you at discharge, call [phone] ([place] office) or [phone] ([place] office) to schedule an appointment for 8 [...] Everywhere. * Hip Replacement: Posterior: Precautions: Post-op (Burundian) * Hip Replacement Surgery: Posterior: Post-op (Burundian) documented in this encounter* Instructions* Leta Irwin RN - 05/30/2020 Wound Management Patient Discharge Instructions CALL [phone] for questions regarding care of your wounds. [...] Put on bandages as your doctor or correspondence specialist says. Keep healthy tissue around the [...] Where can you learn more? Go to [email or web address] and sign in to your [employer] account. Enter F114 in the Search Health Information box to learn more about Pressure Injuries: Care Instructions. If you do not have an account, please click on the Sign Up Now link. Current as of: November 29, 2019 Content Version: 12.5 [employer]. Care instructions adapted under license by [employer]. If you have questions about a medical condition or this instruction, always ask your healthcare professional. [employer] disclaims any warranty or liability for your use of this information. Wound Management Patient Discharge Instructions CALL [phone] for questions regarding care of your wounds. [...] Time Provider Department Center 06/27/2020 10:45 AM Glenn Martínez DPM [facility] Nutrition Therapy Recommendations- 1. Continue to [...] 06/27/2020 Wound Management Patient Discharge Instructions CALL [phone] for questions regarding care of your wounds. OFFICE HOURS ARE TUESDAYS MORNING AND THURSDAYS(9-2:30) and subject to change without [...] 07/18/2020 Wound Management Patient Discharge Instructions CALL [phone] for questions regarding care of your wounds. [...] 09/12/2020 Wound Management Patient Discharge Instructions CALL [phone] for questions regarding care of your wounds. [...] care today! documented in this encounter* Instructions* Robert [place] Semaj RN - 08/15/2020 Wound Management Patient Discharge Instructions CALL [phone] for questions regarding care of your wounds. [...] 10:45 AM Glenn Martínez DPM [facility] [place] Comments: We hope we gave you VERY GOOD care today! documented in this encounter Hospital Course Note Admission Information Patilamar t: Jesús Cha Ovidoi : 1935 Admission date: 02/09/2020 Discharge date: [...] know that pt is discharged back to [facility]. Voicemail left for to return call. * Jon Rey - 04/06/2020 7:53 AM EDT Pt [...] 04/05/2020 7:53 AM EDT Occupational Therapy Facility/Department: [facility] Daily Treatment Note NAME: Jesús Nolan : 1935 Date of Service: 04/05/2020 Discharge Recommendations: Continue to assess pending progress, Subacute/Prison Facility, Patient would benefit from continued therapy [...] Time Individual Concurrent Group Co-treatment Time In 0735 Time Out 0759 Minutes 24 JAE Simpson [...] Pt uncooperative with assessment. Eyes closed upon teletypewriter installer entering room, easily aroused. Pt yells at teletypewriter installer to leave her alone. Pt tachypneic withrespirations [...] Patient has not eaten any meals today. Cement Crusher Operator attempted to help feed the patient. Patient refused. * Robinson Ellsworth PTA - 04/04/2020 2:38 PM EDT Physical Therapy Facility/Department: [facility] Daily Treatment Note NAME: Jesús Nolan : 1935 Date of Service: 04/04/2020 Discharge Recommendations: Continue to assess pending progress, Subacute/Prison Facility, ECF with PT, Patient would benefit [...] goal 2: Pt will perform transfers with uRth to improve functional mobility. Short term goal [...] is approved by insurance to return to [facility]. SAAD Hough * Caprice Echeverria [...] Tells me that she has been at [facility] for 6 weeks now for therapy after a fractured hip. Her confusion has gradually gotten worse, more so lately. Support given. states that she has been unable to walk lately, which is the reason she was brought to the hospital. Admitted with cellulitis. Spiritual screening done. Tells me that the field reviewer visited with them yesterday. Denies any spiritual needs at this time. Emotional support given. DNR paper order form to be placed on paper chart for signature. Will continue to follow and support. Caprice Echeverria, RN, [facility] Nurse Coordinator 04/04/2020 11:24 AM * Alicia Miller RN - 04/04/2020 9:04 AM EDT Patient resting quietly in bed. No complaints at this time. Patient tolerated medications well. * Alicia Miller RN - 04/04/2020 8:45 AM EDT Patient refuses breakfast at this time. * Natalie Guzman PTA - 04/04/2020 8:39 AM EDT Physical Therapy Facility/Department: [facility] Daily Treatment Note NAME: Jesús Nolan : 1935 Date of Service: 04/04/2020 Discharge Recommendations: Continue to assess pending progress, Subacute/Prison Facility, ECF with PT, Patient would benefit [...] like for her mother to return to [facility] following this hospitalization. Daughter is aware, per this teletypewriter installer, that [facility] does have Covid positive resident in their facility at this time. Referral made to [facility] via telephone voicemail message left for Kapil Robledoxler re:above. [facility] will begin pre-cert and notify GREEN CHAIN OFF BEARER when Patient is able to return. SAAD Koroma 04/03/2020 * Iza Hein LSW - 04/03/2020 3:15 PM EDT Met with Patient to discuss discharge planning. Unable to complete assessment due to Patient confusion. Telephone voicemail message left for Patient's spouse and for her daughter. Spoke with Admission's dermatology sales representative at [facility] where Patient was residing at the time ofher hospitalization. She states that [facility] will take Patient back if she or her family chooseto send her back at this time with the knowledge that [facility] has Covid positive Patient in their facility at this time. GREEN CHAIN OFF BEARER will await a telephone call back from Patient's family to determine discharge planning goals. SAAD Koroma 04/03/2020 * Gretchen Chapa PTA - 04/03/2020 3:[address] [facility] Inpatient/Observation/Outpatient Rehabilitation Date: 04/03/2020 Patient Name: Jesús Nolan [x] Inpatient Acute/Observation [] Outpatient : 1935 [] Pt no showed for scheduled appointment [] Pt refused/declined therapy at this time due to: [x] Pt cancelled due to: [] No Reason Given [] Sick/ill [x] Other: Physical therapy treatment was attempted at 2:40pm. Patient demonstrating increased agitation. Consulted with Fanny, treatment withheld. Gretchen Chapa, SPECIAL EDUCATION ADMINISTRATOR Date: 04/03/2020 * Astrid Alan, PT - 04/03/2020 9:30 AM EDT Physical Therapy Facility/Department: [facility] MED SURG Initial Assessment NAME: Jesús Nolan : 1935 Date of Service: 04/03/2020 Discharge Recommendations: Continue to assess pending progress, Subacute/Prison Facility, ECF with PT, Patient would benefit [...] History Lives With: Alone Type of Home: Facility([facility]) Home Layout: One level Home Equipment: Rolling walker ADL Assistance: Needs assistance Homemaking Assistance: Needs assistance IADL Comments: Limited hx provided by pt d/t impaired cognition. Pt resided at [facility], butunable to determine what length of time. Per EMR, pt went to [facility] for rehab following L hip fx. Cognition [...] 5. Fluid Accumulation-Mild fluid accumulation, Extremities 6. Waste Management Engineer Strength-Not measured Recent Labs 04/02/20 1445 04/02/20200404/03/20 0555 NA 137 139 140 K 2.9* 3.4* 3.5* CL 92* 96* 96* CO2 29 28 26 BUN 37* 35* 30* CREATININE 1.41* 1.33* 1.17* GLUCOSE 200* 149* 157* GFR Lab Results Component Value Date LABALBU 3.3 03/25/2020 LABALBU 4.4 02/19/2012 Nutrition Risk Level: Moderate Nutrient Needs: Estimated Daily Total Kcal: 1662-2127 Estimated Daily Protein (g): 55-65 Estimated Daily [...] Usual Body Wt: 159 lb (72.1 kg) Dixon Body Wt: 100 lb (45.4 kg), % Dixon Body 158% BMI Classification: BMI 30.0 - 34.9 Obese Class I Nutrition Interventions: Continue current diet Continued Inpatient Monitoring, Education Completed Nutrition Evaluation: Evaluation: Goals set Goals: >75% PO Monitoring: Meal Intake, Supplement Intake, Weight, Pertinent Labs, Chewing/Swallowing, Patient/Family Education, Constipation Contact Number: [phone] * Sonali Avitia [facility] - 04/03/2020 8:11 AM EDT Piperacillin-Tazobactam Extended [...] of 12.5ml/hr. Thank You, Sonali Avitia04/03/20208:11 AM Electronically signed by Sonali Avitia [facility] at 04/03/2020 8:12 AM EDT * Vernell Stephenson [facility] - 04/03/2020 7:29 AM EDT [facility] Department of Pharmacy Pharmacy Renal Adjustment Note [...] ml/min. Vernell Stephenson,04/03/2020,7:29 AM * Vernell Stephenson RP - 04/03/2020 7:26 AM EDT [facility] Department of Pharmacy Pharmacy Renal Adjustment Note [...] Garcia RN - 04/03/2020 5:58 AM EDT Cement Crusher Operator and 2 RNs came change's patient's bed linen, gown, and brief at this time. Corrine care was performed. Patient is suddenly a lot more pleasant, cooperative, and able to hold a conversation. Patient is now orientated to person, birthday and place. Patient states she does not know the month. Cement Crusher Operator re orientated patient to month. Cement Crusher Operator is going to attempt to regain IV access. Leads were also off and reapplied. * Vicki Garcia RN - 04/03/2020 5:40 AM EDT Assorter alerted teletypewriter installer that patient had removed her brief and pull out her IV at this time. * Vicki Garcia RN - 04/03/2020 2:45 AM EDT Patient refused being repositioned at this time. Don't touch me, patient stated. * Vicki Garcia RN - 04/03/2020 2:28 AM EDT Navigator completed to teletypewriter installer's best ability. Multiple items of the navigator [...] to leave the room at this time. Cement Crusher Operator will continue to monitor. * Vicki Garcia [...] Garcia RN - 04/03/2020 12:43 AM EDT Cement Crusher Operator attempted to give verpamil, xanax and tylenol crushed in pudding at this time. Patient refused, patient smacked teletypewriter installer and swore at teletypewriter installer and with teletypewriter installer's final attempt after explaining it had pain medication in the pudding to help her feel better, patient smacked the spoon out of teletypewriter installer'antonio and onto the floor, stating it smells like shit and I dont want no pills. Cement Crusher Operator was able to ride assembly supervisor patient to IV fluids however patient was mad at teletypewriter installer for doing so and swatted at teletypewriter installer. * Vicki Garcia RN - 04/03/2020 12:28 AM EDT Patient stated get the hell out of here and that myself and Valerie RN are a pain in the ass and need to get out. Cement Crusher Operator is attempting to give medications at this time. * Vicki Garcia RN - 04/03/2020 12:10 AM EDT Heart monitor applied at this time by teletypewriter installer. While applying heart monitor tabs patient was verbally agressive stating leave me alone, stop touching me and will you go downstairs and stay down there!? * Alan Jalloh [facility] - 04/03/2020 12:10 AM EDT Pharmacy Note Renal Dose Adjustment Jesús Nolan is a 84 y.o. female. Pharmacist assessment of renally cleared medications. Recent Labs 04/02/20 1445 04/02/202004 BUN 37* 35* Recent Labs 04/02/20 1445 04/02/202004 CREATININE 1.41* 1.33* CrCl cannot be calculated (Unknown ideal weight.). Estimated CrCl using Dixon Body Weight: 23.4 mL/min (based on IBW 45.5 kg) Height: Ht Readings from Last 1 Encounters: 03/23/20 5' (1.524 m) Weight: Wt Readings from Last 1 Encounters: 03/23/20 159 lb (72.1 kg) The following medication dose has been adjusted based upon renal function per P&T Guidelines: Unasyn 1.5 gm IV every 8 hours changed to 1.5 gm IV every 12 hours. Alan Jalloh [facility] 04/03/2020 12:10 AM * Vicki Garcia RN - 04/03/2020 12:03 AM EDT Patient is disorientated x4. Patient stated I do not have a name. Did not respond when asked whenpatient was born multiple times. Patient stated we're at [facility] when replying to location and stated no what was the month. Patient unable to answer questions at this time due to disorientation. ER nurses states hasnot seen weeks and was unable to speak on her care. Patient is from [facility], teletypewriter installer will review the paperwork sent over by [facility]. Patient is resting with eyes closed at this time, patient is confused and opens eyes occasional when spoken to. * Alan Jalloh [facility] - 04/03/2020 12:03 AM EDT Pharmacy Note Renal Dose Adjustment Jseús Nolan is a 84 y.o. female. Pharmacist assessment of renally cleared medications. Recent Labs 04/02/20 1445 04/02/202004 BUN 37* 35* Recent Labs 04/02/20 1445 04/02/202004 CREATININE 1.41* 1.33* CrCl cannot be calculated (Unknown ideal weight.). Estimated CrCl using Dixon Body Weight: 23.42 mL/min (based on IBW 45.5 kg) Height: Ht Readings from Last 1 Encounters: 03/23/20 5' (1.524 m) Weight: Wt Readings from Last 1 Encounters: 03/23/20 159 lb (72.1 kg) The following medication dose has been adjusted based upon renal function per P&T Guidelines: Enoxaparin 40 mg subcutaneously once daily changed to enoxaparin 30 mg subcutaneously once daily. Alan Jalloh [facility] 04/03/2020 12:03 AM * Vicki Garcia RN - 04/02/2020 11:20 PM EDT Patient arrived to [facility] floor to room 311 at from ER via bed at this time. Patient was moved over to bed via flat sheet with 4 nurses. Patient unable to assist. documented in this encounter* Nirmala Lanier RN - 05/15/2020 3:50 PM EDT Report called to RN at [facility] in [place]. Facility will accept patient after 10pm when LACPcan pick her up. * Constantin Escobedo MD - 05/15/2020 11:58 AM EDT Hospitalist Progress Note Patient: Jesús Nolan Unit/Bed:[address] [place] [address] Date of : 1935 Acct: [id number] PCP: Justino Dhaliwal DO Date of Admission: [...] hypertension Hospital Course: Initial admission HPI by clinical sales consultant physician reviewed as below: 84-year-old female [...] [] Rehab [] Psych [] SNF [] [facility] [] Other- Code Status: Full Code PT/OT Eval Status: * Shahzad, Katarina L, MUSIC STORE MANAGER - PSYCHIATRIC MENTAL HEALTH NURSE - 05/15/2020 11:39 AM EDT Orthopaedic Progress [...] prn PT/OT dvt ppx * Bettie Chavez [facility]TA - [facility] ORTHOPEDICS 7K - 7K-19/019-A Time In: [...] Function: Lives With: Alone Type of Home: Facility([facility] x6-7 months) ADL Assistance: Needs assistance(recently requiring assist with all at [facility]) Homemaking Assistance: (dependent on staff) Ambulation Assistance: Needs assistance Transfer Assistance: Needs assistance Additional Comments: Pt reports being a long time since she has walked, reports living at [facility] x6-7 months, was starting to work on [...] with functional mobility. Functional Outcome Measures: Completed [facility] T-Scale Score : 28.52 ASSESSMENT: Assessment: Patient progressing toward established goals. Activity Tolerance: Patient tolerance of treatment: fair. Pt pleasantly confused during session. Equipment Recommendations:Equipment Needed: No Discharge Recommendations: Subacute/Prison Facility Plan: Times per week: 4-5x O [...] A x 2 for increased functional mobility. termite inspector goals Time Frame for termite inspector goals : NA due to short length of stay. Following session, patient left in safe position with all fall risk precautions in place. * Chele Lagos MD - 05/14/2020 9:42 AM EDT Physician Progress Note PATIENT: JESÚS NOLAN [facility] #: [id number] : 1935 ADMIT DATE: 05/10/2020 9:36 AM [...] you! Howard Darling, STEVON,RN, CRCR RN Clinical Director Presales P: [phone] Options provided: -- Acute blood loss anemia [...] MD 05/14/2020 9:41 AM * Katarina Pike, MUSIC STORE MANAGER - PSYCHIATRIC MENTAL HEALTH NURSE - 05/14/2020 8:35 AM EDT Orthopaedic Progress [...] EDT Hospitalist Progress Note Patient: Jesús Nolan [facility] Date of : 1935 Acct: [id number] PCP: Justino Dhaliwal DO Date of Admission: [...] medical management HPI: Initial admission HPI by clinical sales consultant physician reviewed as below: 84-year-old female [...] Please excuse my TYPOS! * Katarina Pike, MUSIC STORE MANAGER - PSYCHIATRIC MENTAL HEALTH NURSE - 05/13/2020 11:30 AM EDT Orthopaedic Progress [...] Chavez PTA - 05/13/2020 9:29 AM EDT [facility] - 7K-19/019-A Time In: 0846 [...] Function: Lives With: Alone Type of Home: Facility([facility] x6-7 months) ADL Assistance: Needs assistance(recently requiring assist with all at [facility]) Homemaking Assistance: (dependent on staff) Ambulation Assistance: Needs assistance Transfer Assistance: Needs assistance Additional Comments: Pt reports being a long time since she has walked, reports living at [facility] x6-7 months, was starting to work on [...] without Stair Climbing Raw Score : 8 AM-[facility] Inpatient without Stair Climbing T-Scale Score : 30.65 ASSESSMENT: Assessment: Patient progressing toward established goals. Activity Tolerance: Patient tolerance of treatment: good. Pt able to get up with less assist this date. Equipment Recommendations:Equipment Needed: No Discharge Recommendations: Subacute/Prison Facility Plan: Times per week: 4-5x O [...] A x 2 for increased functional mobility. penitentiary goals Time Frame for termite inspector goals : NA due to short length of stay. Following session, patient left in safe position with all fall risk precautions in place. * Saleem Gomes MD - 05/13/2020 8:25 AM EDT Hospitalist Progress Note Patient: Jesús Nolan Unit/Bed:7K-19/019-A Date of : 1935 Acct: [id number] PCP: Justino Dhaliwal DO Date of Admission: [...] reviewed in chart review snap shot in [employer] CC: Consult for medical management HPI: Initial admission HPI by clinical sales consultant physician reviewed as below: 84-year-old female [...] chart Medications: sodium chloride 50 mL/hr at 08/16/20 1437 enoxaparin 40 mg Subcutaneous Daily docusate [...] concerns. Please excuse my TYPOS! * Jorge Solis, AMANDA - 05/12/2020 11:55 PM EDT Orthopaedic Progress [...] EDT Hospitalist Progress Note Patient: Jesús Nolan Unit/Bed:-19/019-A Date of : 1935 Acct: [id number] PCP: Justino Dhaliwal DO Date of Admission: [...] reviewed in chart review snap shot in [employer] CC: Consult for medical management HPI: Initial admission HPI by clinical sales consultant physician reviewed as below: 84-year-old female [...] Tinajero, PT - 05/11/2020 2:37 PM EDT [facility] INPATIENT PHYSICAL THERAPY EVALUATION [facility] ORTHOPEDICS 7K - 7K-19/019-A Time In: [...] History: Lives With: Alone Type of Home: Facility([facility] x6-7 months) ADL Assistance: Needs assistance(recently requiring assist with all at [facility]) Homemaking Assistance: (dependent on staff) Ambulation Assistance: Needs assistance Transfer Assistance: Needs assistance Additional Comments: Pt reports being a long time since she has walked, reports living at [facility] x6-7 months, was starting to work on [...] with functional mobility. Functional Outcome Measures: Completed AM-[facility] Inpatient Mobility without Stair Climbing Raw Score : 6 AM-[facility] Inpatient without Stair Climbing T-Scale Score : [...] FOLLOW UP: Yes Discharge Recommendations: Discharge Recommendations: Subacute/Prison Facility Patient Education: PT Education: PT Role, [...] A x 2 for increased functional mobility. penitentiary goals Time Frame for termite inspector goals : NA due to short length of stay. Following session, patient left in safe position with all fall risk precautions in place. * Marcia Escalera OT - 05/11/2020 10:44 AM EDT [facility] INPATIENT OCCUPATIONAL THERAPY [facility]THOP[facility]ICS 7K EVALUATION Time: Time In: 958 Time Out: 1035 Timed Code Treatment Minutes: 26 Minutes Minutes: 36 Date: 05/11/2020 Patient Name: Jesús Nolan, Gender: female : 1935 (84 y.o.) Referring Practitioner: Sylvia Monte APRN - PSYCHIATRIC MENTAL HEALTH NURSE Diagnosis: periprosthetic hip fracture Additional Pertinent Hx: [...] History: Lives With: Alone Type of Home: Facility([facility] x6-7 months) ADL Assistance: Needs assistance(recently requiring assist with all at [facility]) Homemaking Assistance: (dependent on staff) Ambulation Assistance: Needs assistance Transfer Assistance: Needs assistance Additional Comments: Pt reports being a long time since she has walked, reports living at [facility] x6-7 months, was starting to work on [...] Standing Balance: Maximum Assistance, X 2. within [facility] BED MOBILITY: Supine to Sit: Moderate Assistance with cues and inc time TRANSFERS: Sit to Stand: Maximum Assistance, x3, pt unable to clear paddles on [facility] without 3rd person. from EOB Stand to Sit: Maximum Assistance, X 2. to recliner from [facility] FUNCTIONAL MOBILITY: Assistive Device: romario stedy Assist [...] next level of care and return to PLOF. Performance deficits / Impairments: Decreased functional mobility [...] independence and quality of life. Discharge Recommendations: Subacute/Prison Facility, Patient would benefit from continued therapy [...] EDT Hospitalist Progress Note Patient: Jesús Nolan [facility] Date of : 1935 Acct: [id number] PCP: Justino Dhaliwal DO Date of Admission: [...] reviewed in chart review snap shot in [employer] CC: Consult for medical management HPI: Initial admission HPI by clinical sales consultant physician reviewed as below: 84-year-old female [...] AM EDT The patient arrived with a manager home healthcare. Patient in a wheelchair. Patient was transferred [...] Martínez DPM - 06/13/2020 10:45 AM EDT [facility] Progress Note and Procedure [...] Off loading MRR: ID consult ; all [facility] Health Bill Wound/Ulcer Pain Timing/Severity: constant, mild Quality of [...] HIP performed by Chele Lagos MD at [facility] OR FAMILY HISTORY History reviewed. No [...] Z96.649 Decubitus ulcer of heel, left, unstageable ([facility]) L89.620 REC: excisional debridement / culture [...] 05/30/20 1318 Margins Attached edges;Defined edges 05/30/20 131 Corrine-wound Assessment Clean;Dry;Intact 05/30/20 1318 Culture Taken [...] (cm^3) 0.99 cm^3 05/30/20 1346 Wound Assessment [place];Slough;Yellow 05/30/20 1346 Drainage Amount Moderate 05/30/20 1346 Drainage Description Serosanguinous 05/30/20 1318 Odor None 05/30/20 1318 Corrine-wound Assessment Clean;Dry;Intact 05/30/20 1318 Non-staged Wound Description Full thickness 05/30/20 1346 [place]%Wound Bed 50 05/30/20 1346 Yellow%Wound Bed 50 [...] signed by patient or POA. * Mary Newman RD, LD - 06/13/2020 10:45 AM EDT Wound Management Medical Nutrition Therapy Assessment Age- 84 y.o. Sex- female Chief Complaint- Wound Check (bilateral heels) Height- Height: 5' 3 (160 cm) Weight- Weight: 161 lb 8 oz (73.3 kg)([facility] weight) IBW- 115 # %IBW- [...] Needs- BEE- 1162 kcal Total Calorie Needs- 5660-1446 (25-28 kcal/kg) Total Protein Needs- 78-94 (1.5-1.8 [...] States she eats too much. Staff from [facility] Pt is on a daily MVI [...] (eggs, fish, chicken, etc.) Follow-up- quarterly Mary Ringle, RDN, LD 06/13/2020 1:21 PM PQRS Measure: [...] weaknes s, pain in joints. 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 Displaced intertrochanteric fracture of left femur, subsequent encounter for closed fracture with routine healing LEFT HIP PERIPROSTHETIC FEMUR FX WITH COMPLETE DISPLACEMENT Procedures ME REMOVAL SUPERFICIAL IMPLANT ME CONV PREV HIP SURG TO TOT HIP ARTHROPLAS HARDWARE REMOVAL LEFT HIP, CONVERSION TO LEFT TOTAL HIP Chele Lagos MD [address] [place] [address] [facility] Reason Comments Wound Check Bilateral heels Reason Comments Wound Check bilateral heels Reason Comments Wound Check bilateral heel/leg w ounds Reason Comments Wound Check left heel Reason Comments Wound Check Left heel Reason Comments Wound Check LEFT [facility] REPRESENTATIVE RIOR LOWER LEG Reason Comments Radio Gen A21 Specialty Diagnoses / Procedures Referred By Contac t Referred To Contact XR IMAGING Diagnoses Nephrolithiasis Procedures XR ABDOMEN 3V KUB W/OBLIQUES RADIOLOGIC EXAM ABDOMEN 3+ VIEWS Ricco Garland MD [address] [place] [address] [place] [address] Referral ID Status Reason Start Date Expiration Date V isits Requested Visits Authorized [id number] Closed Auto-Generate d Referral 10/27/2023 11/25/2024 1 1 Reason Comments Post-Op Visit Reason Comments Results INFORMATION SOURCE (unrecogn ized section and content) DATE CREATED AUTHOR 05/22/2020 [facility] DATE CREATED AUTHOR AUTHOR'S ORGANIZ ATION 08/29/2020 [facility] DATE CREATED AUTHOR AUTHOR'S ORGANIZ ATION 04/20/2021 [facility] DATE CREATED AUTHOR AUTHOR'S ORGANIZ ATION 10/15/2021 [facility] DATE CREATED AUTHOR AUTHOR'S ORGANIZ ATION 09/07/2023 [facility] DATE CREATED AUTHOR AUTHOR'S ORGANIZ ATION 09/14/2023 [facility] DATE CREATED AUTHOR AUTHOR'S ORGANIZ ATION 12/10/2023 [facility] DATE CREATED AUTHOR AUTHOR'S ORGANIZ ATION 12/30/2023 [facility] EPIC DATE CREATED AUTHOR AUTHOR'S ORGANIZ ATION 01/05/2024 [facility] Care Teams (unrecognized sec tion and content) Team Status: Active Member Role Status Dates Brina Cordero MD Primary Care Provider Active Team Status: Active Member Role Status Dates Destiny Irwin MD Emergency Provider Active Brina Cordero MD Primary Care Provider Active Riky Bundy MD Admit Provider, Attending Martín foreman Active Pipe Or Steam Fitter Furnace Installer Relationship Specialty Start Date End Date Brina Cordero MD [address] [place] [address] PCP - General Family Medicine 09/09/23 Pipe Or Steam Fitter Furnace Installer Relationship Specialty Start Date End Date Brina Cordero MD [address] [place] [address] PCP - General Family Medicine 09/09/23 Pipe Or Steam Fitter Furnace Installer Relationship Specialty Start Date End Date Brina Cordero MD [address] [facility] [place] [address] PCP - General Family Medicine 09/09/23 Pipe Or Steam Fitter Furnace Installer Relationship Specialty Start Date End Date Brina Cordero MD [address] [facility] [place] [address] PCP - General Family Medicine 09/09/23 Pipe Or Steam Fitter Furnace Installer Relationship Specialty Start Date End Date Brina Cordero MD [address] [facility] [address] PCP - General Family Medicine 09/09/23 Pipe Or Steam Fitter Furnace Installer Relationship Specialty Start Date End Date Brina Cordero MD [address] [facility] [id number] PCP - General Family Medicine 09/09/23 Goals (unrecognized section and content) Goals may be documented in a n alternate section Source Comments (unrecognize d section and content) In the event this informatio n is protected by the Federal Confidentiality of Alcohol and Drug Abuse Patient Records regulations: The Federal rules restrict any use of the information to criminally investigate or prosecute any alcohol or drug abuse patient.[facility] the event this information is protected by the Federal Confidentiality of Alcohol and Drug Abuse Patient Records regulations: The Federal rules restrict any use of the information to criminally investigate or prosecute any alcohol or drug abuse patient.[facility] the event this information is protected by the Federal Confidentiality of Alcohol and Drug Abuse Patient Records regulations: The Federal rules restrict any use of the information to criminally investigate or prosecute any alcohol or drug abuse patient.[facility] the event this information is protected by the Federal Confidentiality of Alcohol and Drug Abuse Patient Records regulations: The Federal rules restrict any use of the information to criminally investigate or prosecute any alcohol or drug abuse patient.[facility] [facility] the event this information is protected by the Federal Confidentiality of Alcohol and Drug Abuse Patient Records regulations: The Federal rules restrict any use of the information to criminally investigate or prosecute any alcohol or drug abuse patient.[facility] [place] the event this information is protected by the Federal Confidentiality of Alcohol and Drug Abuse Patient Records regulations: The Federal rules restrict any use of the information to criminally investigate or prosecute any alcohol or drug abuse patient.[facility] [place]In the event this information is protected by the [facility] Confidentiality of Alcohol and Drug Abuse Patient Records regulations: The Federal rules restrict any use of the information to criminally investigate or prosecute any alcohol or drug abuse patient.[facility] [place] the event this information is protected by the Federal Confidentiality of Alcohol and Drug Abuse Patient Records regulations: The Federal rules restrict any use of the information to criminally investigate or prosecute any alcohol or drug abuse patient.[facility] [place] FOR RECORDS PERTAINING TO PATIENTS WHO ARE [...] BE BASED ON THE PRIMARY CLINICAL RECORDS. [facility]. provides no warranty or guarantee of the accuracy or completeness of information in this document.
[2024-01-10 09:35] LABS: Albumin Level 2.5 g/dL (3.4-5.0); Anion Gap 14.8; BUN Creatinine Ratio 14.4; Calcium 8.9 mg/dL (8.5-10.1); Chloride 104 mmol/L (98-107); Estimated GFR (African America 25 (>=60); Estimated GFR (Non-African Ame 21 (>=60); Glucose 125 mg/dL (74-106); Magnesium 2.1 mg/dL (1.8-2.4); Phosphorus 4.1 mg/dL (2.6-4.7); Potassium 3.8 mmol/L (3.5-5.1); Sodium 142 mmol/L (136-145); Uric Acid 6.7 mg/dL (2.6-6.0)
[2024-01-10 09:37] LABS: Basophils Percent Auto 0.1 % (0.2-2.0); Eosinophils Absolute Auto 0.2 10^3/uL (0.0-0.7); Hemoglobin 10.9 g/dL (12.0-16.0); Immature Granulocytes Abs Auto 0.11 10^3/uL (0.00-0.03); Immature Granulocytes Pct Auto 1.5 % (0.0-0.5); Lymphocytes Absolute Auto 1.9 10^3/uL (1.2-3.8); Lymphocytes Percent Auto 26.1 % (20.5-60.0); Mean Corpuscular HGB Conc 31.1 g/dL (29.9-35.2); Mean Corpuscular Hemoglobin 30.3 pg (26.7-34.0); Mean Corpuscular Volume 97.2 fL (81.0-99.0); Monocytes Absolute Auto 0.8 10^3/uL (0.3-0.8); Monocytes Percent Auto 10.6 % (1.7-12.0); Neutrophils Absolute Auto 4.4 10^3/uL (1.4-6.5); Neutrophils Percent Auto 59.7 % (43.0-75.0); Platelet Count 285 10^3/uL (150-450); Red Cell Distribution Width 12.6 % (11.0-15.0); White Blood Count 7.4 10^3/uL (4.0-11.0)
[2024-01-11 13:08] LABS: PTH, Intact 49 pg/mL (15-65)
== END 2024-01-10 04:31 | disposition home or self-care (01) ==
LOC: LAB 04:40
PROVIDERS: PCP Family Medicine
DX: I12.9 Hypertensive chronic kidney disease with stage 1 through stage 4 chronic kidney disease, or unspecified chronic kidney disease (principal); N18.4 Chronic kidney disease, stage 4 (severe); N25.0 Renal osteodystrophy; E87.8 Other disorders of electrolyte and fluid balance, not elsewhere classified; E87.70 Fluid overload, unspecified
CPT/HCPCS: 36415; 80069; 83735; 83970; 84550; 85025

== ENCOUNTER 2024-01-28 14:13 | Outpatient (OUT) | payer MEDICARE, MEDICAID, SELFPAY ==
--- NOTE | 2024-01-28 14:31 | CT_ITS ---
[address] [address] Patient Name: JESÚS GONSALES MRN: [id number] date: 1935 Sex: F Assigned Patient Location: CT Current Patient Location: CT Accession/Order Number: [id number] Exam Date: 01/28/2024 14:28 Report Date: 01/28/2024 15:05 At the request of: NON-STAFF PHYSICIAN Procedure: CT abdomen pelvis wo con EXAMINATION: CT abdomen pelvis wo con HISTORY: Nephrolithiasis N20.0 COMPARISON: 08/25/2023 TECHNIQUE: Axial, Coronal, and Sagittal images were created without IV contrast. Dose reduction techniques were achieved by using automated exposure control and/or adjustment of mA and/or kV according to patient size and/or use of iterative reconstruction technique. FINDINGS: LUNG BASES: No visible pulmonary or pleural disease. LIVER: No enlargement, atrophy, abnormal density, or significant focal lesion. BILIARY: Surgical clips from cholecystectomy PANCREAS: Moderate diffuse atrophy areas of fluid signal along the pancreatic body possibly pseudocysts SPLEEN: No enlargement or focal lesion. ADRENALS: No mass or enlargement. KIDNEYS: Bilateral punctate nonobstructing nephrolithiasis. Marked change in configuration of previously noted left staghorn-type calculus. Mild left pelviectasis/extrarenal pelvis. No dilation of the visualized ureters which are incompletely seen. Right renal cortical hypodensity possibly a cyst BOWEL/MESENTERY: Large amount of stool identified in the colon. Overall nonobstructive bowel gas pattern AORTA/VASCULAR: No aortic aneurysm. Extensive atherosclerosis RETROPERITONEUM: No mass or adenopathy. LYMPH NODES: No adenopathy. URINARY BLADDER: No visible focal wall thickening, lesion, or calculus. PELVIC ORGANS: Suspected hysterectomy. Limited visualization of the pelvis. Streak artifact from left hip arthroplasty ABDOMINAL WALL: No mass or hernia. BONES: No bony lesion or fracture. Moderate degenerative changes with rotatory dextrocurvature centered at L2. Left hip arthroplasty OTHER: Negative. CT/CT abdomen pelvis wo con IMPRESSION: Interval removal of large left staghorn-type calculus with bilateral punctate nonobstructing nephrolithiasis Electronically authenticated by: ROSENDO ALCALA Date: 01/28/2024 15:05
== END 2024-01-28 14:14 | disposition home or self-care (01) ==
LOC: CT 14:13
PROVIDERS: PCP Family Medicine
DX: N20.0 Calculus of kidney (principal)
CPT/HCPCS: 74176

== ENCOUNTER 2024-04-02 14:00 | Outpatient (REF) | payer MEDICARE, MEDICAID, SELFPAY ==
[2024-04-03 09:54] LABS: Creatinine Urine Random 147.38 mg/dL (20.00-300.00); Protein Creatinine Ratio Urine 0.27; Total Protein Urine Random 39.2 mg/dL (<=11.9)
== END 2024-04-02 14:01 | disposition home or self-care (01) ==
LOC: LAB 14:00
PROVIDERS: PCP Family Medicine; Visit Provider Specialist
DX: I12.9 Hypertensive chronic kidney disease with stage 1 through stage 4 chronic kidney disease, or unspecified chronic kidney disease (principal); N18.4 Chronic kidney disease, stage 4 (severe); N25.0 Renal osteodystrophy; E87.8 Other disorders of electrolyte and fluid balance, not elsewhere classified; E87.70 Fluid overload, unspecified
CPT/HCPCS: 82570; 84156

== ENCOUNTER 2024-04-03 00:29 | Outpatient (REF) | payer MEDICARE, MEDICAID, SELFPAY ==
--- OUTSIDE RECORDS SUMMARY | 2024-04-03 00:35 | XMS_ITS | CCD ---
Author Organization [facility] Care Team Providers Care Material Chaser Name Role Phone Justino Dhaliwal Primary Care Provider CHELE LAGOS Admitting Unavailable CHELE LAGOS Attending Unavailable YAZMIN, JUSTINO Boone Primary Care Unavailable PENNY DOWNEY Consulting Unavailable CONSTANTIN ESCOBEDO Consulting Unavailable Justino Dhaliwal Primary Care Provider [phone] Carlos Carlin Admitting Unavailable Carlos Carlin Attending Unavailable JUSTINO DHALIWAL Primary Care Unavailab le YAZMIN, JUSTINO HUNG Consulting Unavailab le Yazmin Justino NIELSON Primary Care Provider DAVID, DR ALAN Grayson [...] Admit Provider MD Riky Bundy Attending Provider [phone] Brina Cordero Primary Care Unavailable Riky Bundy Admitting Unavailab Kishan Downs Attending Unavailable Justino Martinez Consulting Unavailable Unavailable Primary Care Provider UnavailHarsh Ireland Attending Unavailable Harsh CLAYTON Attending Unavailable Harsh CLAYTON Referring Unavailable Justino Martinez Attending Unavailable Justino Martinez Referring Unavailable Brina Cordero MD Primary Care Provider [phone] Brina Cordero MD Primary Care Provider [phone] BRINA CORDERO Primary Care Unavailable BRINA CORDERO Primary Care Unavailable BRINA CORDERO Primary Care Unavailable GARLAND, RICCO Attending Unavailable BRINA CORDERO Primary Care Unavailable MARK CESAR Attending Unavailable GARLAND, RICCO Referring Unavailable GARLAND, RICCO Referring Unavailable BRINA CORDERO E Primary Care Unavailable GARLAND, RICCO Referring Unavailable ROXIE, BRINA E Primary Care Unavailable GARLAND, RICCO Attending Unavailable GARLAND, RICCO Referring Unavailable ROXIE, BRINA E Primary Care Unavailable BRINA CORDERO E Primary Care Unavailable ANAJEMARISELASTEFANIE Referring Unavailable GARLAND, RICCO Attending Unavailable GARLAND, RICCO Admitting Unavailable BRINA CORDERO E Primary Care Unavailable ROXIE, BRINA E Primary Care Unavailable FACUNDO, KODY A Attending Unavailable BRINA CORDERO Referring Unavailable FACUNDO, KODY A Attending Unavailable FACUNDO, KODY A Attending Unavailable FACUNDO, KODY A Attending Unavailable FACUNDO, KODY A Attending Unavailable FACUNDO, KODY A Attending Unavailable Allergies Allergy Classification Reported Allergen(s) Allergy Type Date of Onset Reaction(s) Facility (1 source) No Known Medication Allergies; Translations: [No Known Medication Allergies] Propensity to adverse reactions to drug (disorder) [facility] Repository Medications Current Medications Medication Drug Class(es) [...] PO Four times daily August 31, 2023 1:00am Start: 05-10-2020 take 650 mg by mouth [...] every 6 hours as needed for pain. acetaminophen 325 mg / HYDROcodone bitartrate 5 mg oral tablet (20 sources) Opioid Agonist Start: 12-22-2023 take 1 tablet by mouth twice daily Hydrocodone-Acet aminophen Active 1 TAB PO Twice daily 60 December 22, 2023 Start: 11-22-2023 End: 12-22-2023 take 1 tablet by mouth three times daily Hydrocodone-Acetaminophen Discontinued 1 TAB PO Three times daily 90 November 25, 2023 December 22, 2023 2:24pm Start: 10-15-2023 HYDROcodone-Ac etaminophen 10-325 MG 1 tablet six times per day Orally prn for 30 days Sep, Active Start: 08-31-2023 End: 11-22-2023 take 1 tablet by mouth every six hours Hydrocodone-Acetaminophen Discontinued 1 TAB PO Q6H 10 3 September 03, 2023 November 22, 2023 5:35pm Start: 2023 HYDROcodone-Ac etaminophen (NORCO) 10-325 mg [...] nightly as needed for Sleep. 0 Active amoxicillin 500 mg oral tablet (1 source) Penicillin-class Antibacterial Start: 01-19-2024 take 500 mg by mouth three times daily Amoxicillin Active 500 MG PO Three times daily January 19, 2024 12:00am ascorbic acid 500 mg oral tablet (20 sources) Vitamin C Start: 08-31-2023 VITAMIN C 500 mg tablet take 1 tablet by mouth twice melva ly ascorbic acid (VITAMIN C) 500 MG tablet Take 500 mg by mouth 2 times daily 0 Active ascorbic acid 60 mg / [...] / zinc oxide 17.4 mg oral tablet (2 sources) Vitamin C Start: 08-31-20 take 1 tablet by mouth at dinner Vitamins A,C,N-Ntqz-Tlwusz (Preservision Areds) 2,148 mcg-113 mg-45 mg-17.4mg Tablet Active 1 TAB PO Bedtime August 31, 2023 1:00am administer with AM and PM meals ascorbic acid 113 mg / copper gluconate 0.4 mg / docosahexaenoic acid 87.5 mg / eicosapentaenoic acid 163 mg / lutein 2.5 mg / tocopherol acetate 100 unt / zeaxanthin 0.5 mg / zinc oxide 17.4 mg oral capsule (5 sources) Vitamin C PreserVision ARE DS 2 - as directed Orally 717-10-48-1MG Active busPIRone hydrochloride 10 mg oral tablet (20 sources) Start: 08-31-20 busPIRone (BUSPAR) 10 mg tablet Start: 05-10-2020 take 5 mg by mouth twice daily 5 mg, Oral, 2 TIMES DAILY, First dose on Wed05/10/20 at 2100 calcitriol 0.60763 mg oral capsule (20 sources) Vitamin D3 Analog Start: 08-31-2023 take 0.25 ug by mouth once daily Calcitriol Active 0.25 MCG PO Daily August 31, 2023 1:00am take 1 capsule by [facility] three times weekly Calcitriol 0.25 MCG 1 capsule Orally Thr ee times a Week Active take 1 capsule by [facility] three times weekly Calcitriol 0.25 MCG 1 capsule Orally Thr ee times a Week Active Comment on above: Take 0.25 mcg by [facility] calcium acetate 667 mg oral tablet (20 sources) Start: 023 calcium acetate (CALPHRON) 667 mg tablet cyclobenzaprine hydrochloride 10 mg oral tablet (1 source) Muscle Relaxant Start: 020 take 10 mg by mouth three times daily as needed for muscle spasms 10 mg, Oral, 3 TIMES DAILY PRN, Muscle spasms, Starting Wed05/10/20 at 1557 desoximetasone 2.5 mg/ml topical cream (20 sources) Corticosteroid desoximetasone (TOPICORT) 0.25 % cream Apply topically 2 times daily Apply topically 2 times daily. 0 Active diclofenac sodium 0.01 mg/mg topical gel (15 sources) Nonsteroidal Anti-inflammatory Drug Start: 023 diclofenac (VOLTAREN) 1 % topical gel Voltaren 1 % as directed Externally Active Voltaren 1 % as directed Externally Active docusate sodium 100 mg oral capsule (20 sources) Start: 08-31-2023 take 100 mg by mouth twice daily Docusate Sodium Active 100 MG PO Twice daily August 31, 2023 1:00am Start: 05-11-2020 take 100 mg by mouth [...] 04-03-2020 enoxaparin (LO VENOX) injection 40 mg estradiol 0.1 mg/ml vaginal cream (10 sources) Estrogen Start: 09-07-2023 estradiol (EST RACE) 0.01 % (0.1 mg/gram) vaginal cream Use 1 g vaginally one time a week. 42 g 1 09/07/2023 Active Comment on above: Use 1 g vaginally on e time a week. ferrous sulfate 325 mg oral tablet (20 sources) Start: 08-29-2023 ferrous sulfat e 325 mg (65 mg iron) tablet take 1 tablet by mouth once quin y Ferrous Sulfate 325 (65 Fe) MG 1 tablet Orally Once a day Active fluticasone propionate 0.05 mg/actuat metered dose nasal spray (1 source) Corticosteroid Start: 01-19-2024 take 1 spray(s) nasal route once daily Fluticasone Propionate Active 2 SPRAY INTRANASAL Daily January 19, 2024 12:00am administer into each nostril furosemide 20 mg oral tablet (20 sources) Loop Diuretic Start: 08-31-2023 take 20 mg by mouth once daily Furosemide Active 20 MG PO Daily August 31, 2023 1:00am Comment on above: Take 20 mg by mouth. High Potency Multivitamin - (13 sources) take 1 tablet by mouth once daily High Potency Multivitamin - 1 tablet Orally Once a day Active HIGH POTENCY MULTIVITAMIN 400 mcg (10 sources) Start: 08-19-2023 HIGH POTENCY MULTIVITAMIN 400 mcg hydrALAZINE hydrochloride 25 mg oral tablet (20 sources) Arteriolar Vasodilator Start: 08-31-2023 take 25 mg by mouth twice daily Hydralazine Active 25 MG PO Twice daily August 31, 2023 1:00am take 1 tablet by hailey th every eight hours hydrALAZINE HCl 25 MG 1 tablet with food Orally Three times a day Active Comment on above: Take 25 mg by mouth. lactulose 667 mg/ml oral solution (17 sources) Osmotic Laxative Start: 09-04-2023 lactulose 10 gram/15 mL solution Start: 08-31-2023 take 1 mL by mouth once daily Lactulose Active 10 ML PO Daily August 31, 2023 1:00am Start: 01-15-2023 take 10 mL by mouth once daily as needed Lactulose 10 GM/15ML 10ml Orally Once a day prn for 30 days Dec, Active levoFLOXacin 500 mg oral tablet (2 sources) Quinolone Antimicrobial Start: 04-06-2020 End: 04-16-2020 take 1 tablet by mouth once daily levoFLOXacin (LEVAQUIN) 500 MG tablet Take 1 tablet by mouth daily for 10 days 10 tablet 0 04/06/2020 04/16/2020 Active LORazepam 0.5 mg oral tablet (20 sources) Benzodiazepine Start: 08-31-2023 End: 09-03-2023 take 0.5 mg by mouth once daily Lorazepam Discontinued 0.5 MG PO Daily August 31, 2023 1:00am September 03, 2023 12:08pm Start: 08-31-2023 End: 09-03-2023 take 1 mg by mouth three times daily Lorazepam Discontinued 1 MG PO Three times daily August 31, 2023 1:00am September 03, 2023 12:07pm Start: 08-30-2023 End: 01-14-2024 take 0.5 mg by mouth three times daily Lorazepam Active 0.5 MG PO Three times daily January 14, 2024 1:27pm Start: 07-05-2023 take 1-2 tablets by mouth [...] 80 mg/ml oral suspension (1 source) Start: 0 take 30 mL by mouth once daily as needed for constipation 30 mL, Oral, DAILY PRN, Constipation, Starting Wed05/10/20 at 1557 melatonin 10 mg disintegrating oral tablet (20 sources) Start: 3 melatonin 10 mg ODT Start: 08-31-2023 take 1 mg by mouth at bedtime Melatonin Active 1 MG PO Bedtime August 31, 2023 1:00am Start: 05-10-2020 take 5 mg by mouth once daily 5 mg, Oral, NIGHTLY, First dose on Wed05/10/20 at 2100 take 1 tablet by hailey every twenty-four hours Melatonin 5 MG 1 tablet in the evening Orally Once a day Active take 5 mg by mouth once daily me latonin 3 MG TABS tablet Take 5 mg by mouth nightly 0 Active morphine (PF) injection 2 mg (1 source) Start: 05-10-2020 morphine (PF) injection 2 mg Multiple Vitamins-Minerals (THERAPEUTIC MULTIVITAMIN-MINERALS) tablet (2 sources) take 1 tablet by mouth once daily Multiple Vitamins-Minerals (THERAPEUTIC MULTIVITAMIN-MINERALS) tablet Take 1 tablet by mouth daily 0 Active Multivitamin preparation (2 sources) Start: 08-31-2023 take 1 tablet by mouth once daily Multivitamin Active 1 TAB PO Daily August 31, 2023 1:00am Start: 08-31-2023 take 1 tablet by hailey th once daily Multivitamin Active 1 TAB PO Daily August 31, 2023 12:00am Nutritional Supplements (BILL) PACK (20 sources) take 1 dose by mouth once Nutritional Supplements (BILL) PACK Take 1 each by mouth once 0 Active 2 ml ondansetron 2 mg/ml injection (3 sources) Serotonin-3 Receptor Antagonist Start: 05-10-2020 4 mg, Intravenous, EVERY 6 HOURS PRN, [...] IVPB extended infusion (mini-bag) polyethylene glycol 3350 80576 mg powder for oral solution (20 sources) Osmotic Laxative Start: 04-02-2020 Polyethylene Glycol 3350 (Miralax) 17 gram Powder In Packet Active 17 GM PO Daily August 31, 2023 1:00am Comment on above: Take 17 g by mouth. potassium chloride 20 meq extended release oral tablet (20 sources) Start: 08-31-2023 take 20 mEq by mouth once daily Potassium Chloride Active 20 MEQ PO Daily August 31, 2023 1:00am Start: 04-02-2020 End: 04-02-2020 potassium chloride 10 [...] 10 MG PO Daily August 31, 2023 1:00am Start: 04-03-2020 take 10 mg by mouth once daily 10 mg, Oral, DAILY, First dose on Wed04/03/20 at 0900 Comment on above: Take 10 mg by mouth. Promethazine (1 source) Phenothiazine Start: 04-02-20 promethazine (PHENERGAN) tablet 12.5 mg QUEtiapine 25 mg oral tablet (20 sources) Atypical Antipsychotic take 1 tablet by mouth twice daily QUEtiapine (SEROQUEL) 25 MG tablet Take 25 mg by mouth 2 times daily 0 Active tamsulosin hydrochloride 0.4 mg oral capsule (5 sources) alpha-Adrenergic Ellie Start: 10-20-19 tamsulosin (FLOMAX) 0.4 mg Take 1 capsule by mouth once daily. 30 minutes after the same meal each day. 30 capsule 0 10/20/2023 Active Comment on above: Take 1 capsule by [facility] once daily. 30 minutes after the same meal each day. verapamil hydrochloride 180 mg extended release oral tablet (20 sources) Calcium Channel Ellie Start: 04-03-20 take 180 mg by mouth at bedtime Verapamil Active 180 MG PO Bedtime August 31, 2023 1:00am Comment on above: Take 180 mg by mouth . Completed/Discontinued Medications Medication Drug Class(es) Dates Sig (Normalized) Sig (Original) ampicillin-sulbacta m (UNASYN) 1.5 g IVPB minibag (1 source) Start: 04-02-2020 End: 04-02-2020 ampicillin-sulbact am (UNASYN) 1.5 g IVPB minibag calcium chloride 0.0014 meq/ml / potassium chloride [...] 2100, Last dose on Wed05/11/20 at 0500 cephalexin 500 mg oral capsule (1 source) Cephalosporin Antibacterial Start: 09-03-2023 End: 01-19-2024 take 500 mg by mouth twice daily Cephalexin Discontinued 500 MG PO Twice daily September 03, 2023 1:00am January 19, 2024 9:49am ciprofloxacin 250 mg oral tablet (10 sources) Quinolone Antimicrobial Start: 01-06-2024 End: 01-19-2024 take 250 mg by mouth once daily Ciprofloxacin Hcl Discontinued 250 MG PO Daily January 06, 2024 12:00am January 19, 2024 9:49am Start: 01-04-2024 End: 01-19-2024 Ciprofloxacin Hcl Discontinu ed 0 OPHTHALMIC .COMPLEX January 04, 2024 12:00am January 19, 2024 9:49am put 1-2 drps in affected eye(s) every 2hr up to 8 times/day x2days; then 4 times/day x5days Eye-Both take 1 tablet by hailey th every twenty-four hours Ciprofloxacin HCl 250 MG 1 tablet Orally daily for 10 days Active End: 05-30-2020 take 1 tablet by mouth twice daily ciprofloxacin (CIPRO) 500 MG tablet Take 500 mg by mouth 2 times daily 0 05/30/2020 Discontinued (LIST CLEANUP) 2 ml fentaNYL 0.05 mg/ml injection (2 sources) Opioid Agonist Start: 05-10-2020 End: 05-10-2020 fentaNYL (SUBLIMAZE) injection 50 mcg Start: 02-09-2020 End: 02-09-2020 fentaNYL (SUBLIMAZE) injecti on 25 mcg hydroCHLOROthiazide 25 mg oral tablet (11 [...] not administer for more than 5 days. meclizine hydrochloride 25 mg oral tablet (11 sources) Antiemetic End: 04-06-2020 take 1 tablet by mouth three times daily as needed meclizine (ANTIVERT) 25 MG tablet Take 25 mg by mouth 3 times daily as needed 0 04/06/2020 Discontinued (Stop Taking at Discharge) meloxicam 7.5 mg oral tablet (11 sources) [...] 04-03-2020 0.9 % sodium chloride infusi on sulfamethoxazole 800 mg / trimethoprim 160 mg oral tablet (12 sources) Dihydrofolate Reductase Inhibitor Antibacterial, Sulfonamide Antimicrobial Start: 08-31-2023 End: 09-03-2023 take 1 tablet by mouth twice daily Sulfamethoxazole-Trimethoprim (Bactrim Ds) 800-160 mg Tablet Discontinued 1 TAB PO Twice daily August 31, 2023 1:00am September 03, 2023 12:08pm traMADol hydrochloride 50 mg oral tablet (1 [...] te Episodic/Chronic Acute and unspecified renal failure (5 sources) Acute renal failure syndrome; Translations: [Acute [...] dementia, and amnestic and other cognitive disorders (4 sources) Dementia; Translations: [Unspecified dementia without behavioral disturbance] Onset: 3 09-01-2023 Chronic Essential hypertension (15 sources) Hypertensive disorder; Translations: [Essential (primary) hypertension] Onset: 3 09-01-2023 Chronic Fracture of neck of femur (hip) (1 source) Closed intertrochanteric fracture; Translations: [Closed displaced intertrochanteric fracture of left femur, initial encounter ([facility])] Episodic Osteoarthritis (11 sources) Arthritis; Translations: [Unspecified osteoarthritis, unspecified site] [...] Translations: [Leg pain, anterior, left] Episodic Other connective tissue disease (1 source) Neuropathic pain; Translations: [Neuralgia and neuritis, unspecified] 12-22-2023 Episodic Other diseases of kidney and ureters (1 source) Hydronephrosis with renal and ureteral calculous obstruction; Translations: [Hydronephrosis] 09-08-2023 Episodic Other diseases of kidney and ureters (1 source) Hydronephrosis; Translations: [Unspecified hydronephrosis] 12-07-2023 Episodic Other diseases of kidney and ureters (1 source) Unspecified hydronephrosis; Translations: [Hydronephrosis, unspecified hydronephrosis type] Onset: Episodic Other ear and sense organ disorders (3 sources) Hearing loss; Translations: [Unspecified hearing loss, unspecified ear] Chronic Other ear and sense organ disorders (1 source) Impacted cerumen, bilateral Episodic Other gastrointestinal disorders (18 sources) Slow transit constipation; Translations: [Slow transit constipation] Episodic Other nervous system disorders (7 sources) Metabolic encephalopathy; Translations: [Metabolic encephalopathy] 09-01-2023 [...] source) Disorientation, unspecified; Translations: [Disorientation, unspecified] Onset: Episodic Retinal detachments; defects; vascular occlusion; and [...] Onset: 05-10-2020 05-10-2020 Episodic Other gastrointestinal disorders (12 sources) Constipation; Translations: [Constipation, unspecified] Onset: 09-07-2023 09-01-2023 Episodic Other gastrointestinal disorders (3 sources) Constipation, unspecified; Translations: [Constipation, unspecified] Onset: 09-01-2023 08-31-2023 Episodic Residual codes; unclassified (10 sources) Hallucinations; Translations: [Hallucinations, unspecified] Onset: 09-01-2023 08-31-2023 Episodic Residual codes; unclassified (10 sources) History of operative procedure on hip; Translations: [Other specified postprocedural states] Onset: 09-07-2023 09-07-2023 Episodic Residual codes; unclassified (9 sources) Delirium; Translations: [Disorientation, unspecified] Onset: 10-21-2023 10-21-2023 Episodic Residual codes; unclassified (1 source) Other specified postprocedural states; Translations: [Status post hip surgery] Onset: 09-07-2023 Episodic Skin and subcutaneous tissue infections (2 sources) Cellulitis of right upper limb; Translations: [Cellulitis of right upper limb] Onset: 04-02-2020 04-03-2020 Episodic Results Test Name Value Interpretation Reference Range Facility [facility] 02-17-2024 [facility] Telephone (MICHAEL) OVIDIOJESÚS ([id number]) 1935 F Date Time Provider Department 02/17/24 MONI CHAUDHARI During your visit today, we recorded the following information about you: Moni Chaudhari RN 02/17/2024 11:09 AM Addendum Called and spoke with patients daughter to discuss external CT results. 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 No swelling or obstruction seen in either kidney. Will update Mark Cesar to review actual imaging and advise on next steps. Did inform daughter that he is out of office today, so will be back tomorrow. Patients daughter voiced understanding. Moni Chaudhari RN February 17, 2024 11:09 AM ----- Message from Khushboo Davila sent at 02/17/2024 10:57 AM EDT ----- Regarding: CT Follow up Contact: Good morning, Pt daughter called she wants someone to call her and go over pt CT with her and discuss the next steps. Please advise. Thanks, Khushboo [facility] Moni Chaudhari RN 02/18/2024 12:49 PM Addendum Called patients daughter to discuss results after Mark reviewed. There are no stone fragments along the route, swelling has significantly went down and there is no stricture. Recommend following up with US/KUB in 6 months. No answer, LVM with phone number to return call to office to discuss. Moni Chaudhari RN February 18, 2024 12:49 PM Moni Chaudhari RN 02/24/2024 8:46 AM Signed Called and spoke with patients daughter Maranda to discuss results. Advised that there are no stone fragments along the route, swelling has significantly went down and there is no stricture. Recommend following up with US/KUB in 6 months. Patient is already scheduled for testing and follow up on 06/09. Patients daughter voiced understanding. Moni Chaudhari RN February 24, 2024 8:46 AM Allergies As of Date: 02/17/2024 (No Known Allergies) Date Reviewed: 12/06/2023 Reviewed by: Kya Rodriguez OCCA - Fully Assessed Reason for Visit: Results [95] Prescriptions as of 02/24/2024 - acetaminophen (TYLENOL EXTRA STRENGTH) 500 mg [...] a week. Problem List As Of Date 02/17/2024 Noted Resolved Abnormal urinalysis [R82.90] 09/07/2023 History [...] 10/19/2023 Delirium [R41.0] 10/21/2023 Encounter Status:[facility] JES[facility]S NOLAN ([id number]) 1935 F Date Time Provider Department 01/31/24 MARK CESAR URRACHEL During your visit today, we recorded the following information about you: Yuly Hernandez 01/31/2024 2:14 PM Signed Today we got an outside CT faxed in for Jesús. It is uploaded in her scanned documents. Allergies As of Date: 01/31/2024 (No Known Allergies) Date Reviewed: 12/06/2023 Reviewed by: Kya Rodriguez OCCA - Fully Assessed Reason for Visit: Appointment [186] Prescriptions as of 02/01/2024 - acetaminophen (TYLENOL EXTRA STRENGTH) 500 mg [...] a week. Problem List As Of Date 01/31/2024 Noted Resolved Abnormal urinalysis [R82.90] 09/07/2023 History [...] 10/19/2023 Delirium [R41.0] 10/21/2023 Encounter Status:Closed by YULY HERNANDEZ on 02/01/24 [facility] Basophils Auto (Bld) [#/Vol] on 01-10-2024 Basophils (Bld) [#/Vol] 0.0 10 3/uL 0.0-0.1 [facility] Basophils/100 WBC Auto (Bld) on 01-10-2024 Basophils/100 WBC (Bld) 0.1 % 0.2-2.0 [facility] Eosinophils/100 WBC Auto (Bl d)on 01-10-2024 Eosinophils/100 WBC (Bld) 2.0 % 0.9-7.0 [facility] Erythrocyte distribution wid th Auto (RBC) [Ratio]on 01-10-2024 Erythrocyte distribution width (RBC) [Ratio] 12.6 % 11.0-15.0 [facility] Estimated glomerular filtrat ion rate (GFR) non- Americanon 01-10-2024 GFR/1.73 sq M.predicted among non-blacks MDRD (S/P/Bld) [Vol rate/Area] 21 mL/min/{1.73_m2} >=60 [facility] Hematocrit Auto (Bld) [Volum e fraction]on 01-10-2024 Hematocrit (Bld) [Volume fraction] 35.0 % 36.0-48.0 [facility] Hemoglobin [Mass/volume] in Bloodon 01-10-2024 Hemoglobin (Bld) [Mass/Vol] 10.9 g/dL 12.0-16.0 [facility] Laboratory - Chemistry and C hemistry - challengeon 01-10-2024 Albumin [Mass/Vol] 2.5 g/dL 3.4-5.0 [facility] Calcium [Mass/Vol] 8.9 mg/dL 8.5-10.1 [facility] Chloride [Moles/Vol] 104 mmol/L 98-107 [facility] CO2 [Moles/Vol] 27.0 mmol/L 21.0-32.0 [facility] Creatinine [Mass/Vol] 2.22 mg/dL 0.55-1.02 [facility] GFR/1.73 sq M.predicted MDRD (S/P/Bld) [Vol rate/Area] 25 mL/min/{1.73_m2} >=60 [facility] Glucose [Mass/Vol] 125 mg/dL 74-106 [facility] Magnesium [Mass/Vol] 2.1 mg/dL 1.8-2.4 [facility] Potassium [Moles/Vol] 3.8 mmol/L 3.5-5.1 [facility] Sodium [Moles/Vol] 142 mmol/L 136-145 [facility] Urate [Mass/Vol] 6.7 mg/dL 2.6-6.0 [facility] Urea nitrogen [Mass/Vol] 32.0 mg/dL 7.0-18.0 [facility] Urea nitrogen/Creatinine [Mass ratio] 14.4 mg/mg [facility] Laboratory - Hematology and Cell countson 01-10-2024 Immature granulocytes/100 WBC (Bld) 1.5 % 0.0-0.5 [facility] Leukocytes [#/volume] correc tavia for nucleated erythrocytes in Blood by Automated counon 01-10-2024 WBC corrected for nucl RBC Auto (Bld) [#/Vol] 7.4 10 3/uL 4.0-11.0 [facility] Lymphocytes Auto (Bld) [#/Vo l]on 01-10-2024 Lymphocytes (Bld) [#/Vol] 1.9 10 3/uL 1.2-3.8 [facility] Lymphocytes/100 WBC Auto (Bl d)on 01-10-2024 Lymphocytes/100 WBC (Bld) 26.1 % 20.5-60.0 [facility] MCH Auto (RBC) [Entitic mass ]on 01-10-2024 MCH (RBC) [Entitic mass] 30.3 pg 26.7-34.0 [facility] MCHC Auto (RBC) [Mass/Vol]on 01-10-2024 MCHC (RBC) [Mass/Vol] 31.1 g/dL 29.9-35.2 [facility] MCV Auto (RBC) [Entitic vol] on 01-10-2024 MCV (RBC) [Entitic vol] 97.2 fL 81.0-99.0 [facility] Monocytes Auto (Bld) [#/Vol] on 01-10-2024 Monocytes (Bld) [#/Vol] 0.8 10 3/uL 0.3-0.8 [facility] Monocytes/100 WBC Auto (Bld) on 01-10-2024 Monocytes/100 WBC (Bld) 10.6 % 1.7-12.0 [facility] Neutrophils Auto (Bld) [#/Vo l]on 01-10-2024 Neutrophils (Bld) [#/Vol] 4.4 10 3/uL 1.4-6.5 [facility] [facility] Neutrophils/100 WBC Auto (Bl d)on 01-10-2024 Neutrophils/100 WBC (Bld) 59.7 % 43.0-75.0 [facility] No Panel Informationon 01-09 Eosinophils # (Auto) 0.2 10 3/uL 0.0-0.7 [facility] Immature Granulocyte # (Auto) 0.11 10 3/uL 0.00-0.03 [facility] Parathyroid Hormone (Intact) 49 pg/mL [facility] Comment on above: Performed at: [facility] [address] [id number] Director: Sriram Knapp PhD, Phone: [phone] Phosphorus Level 4.1 mg/dL 2.6-4.7 [facility] Platelet mean volume Auto (B ld) [Entitic vol]on 01-10-2024 Platelet mean volume (Bld) [Entitic vol] 10.0 fL 9.5-13.5 [facility] Platelets Auto (Bld) [#/Vol] on 01-10-2024 Platelets (Bld) [#/Vol] 285 10 3/uL 150-450 [facility] RBC Auto (Bld) [#/Vol]on RBC (Bld) [#/Vol] 3.60 10 6/uL 4.20-5.40 [facility] Serum or plasma anion gap de terminationon 01-10-2024 Anion gap [Moles/Vol] 14.8 mmol/L [facility] Automated urine specific gra vity by refractometryon 01-09-2024 Specific gravity Refractometry automated (U) [Rel density] 1.015 1.005-1.025 [facility] Bilirubin Auto test strip (U ) [Mass/Vol]on 01-09-2024 Bilirubin (U) [Mass/Vol] Negative NEGATIVE [facility] Color Auto (U)on 01-09-2024 Color (U) LT. YELLOW YELLOW [facility] Ketones Auto test strip (U) [Mass/Vol]on 01-09-2024 Ketones (U) [Mass/Vol] Negative NEGATIVE [facility] Laboratory - Urinalysison Protein (U) [Mass/Vol] 25.2 mg/dL <=11.9 [facility] No Panel Informationon 01-08 Urine Microscopic Review NO [facility] Urine Random Creatinine 59.29 mg/dL 20.0 0-300.0 0 [facility] Protein Auto test strip (U) [Mass/Vol]on 01-09-2024 Protein (U) [Mass/Vol] Negative NEG/TRACE [facility] Specific gravity Auto test s trip (U) [Rel density]on 01-09-2024 Specific gravity (U) [Rel density] CLEAR CLEAR [facility] Urine glucose measurement by test strip (mass/volume)on 01-09-2024 Glucose Test strip (U) [Mass/Vol] Negative NEGATIVE [facility] Urine hemoglobin detection b y automated test stripon 01-09-2024 Hemoglobin Auto test strip Ql (U) Negative NEGATIVE [facility] Urine nitrite detection by a utomated test stripon 01-09-2024 Nitrite Auto test strip Ql (U) Negative NEGATIVE [facility] Urine protein/creatinine rat ioon 01-09-2024 Protein/Creatinine (U) [Ratio] 0.43 [facility] Urobilinogen Auto test strip (U) [Mass/Vol]on 01-09-2024 Urobilinogen Qn (U) 0.2 {Gerard'U}/dL 0.2-1.0 [facility] pH Auto test strip (U)on pH (U) 6.0 [pH] 5.0-9.0 [facility] CNPNon 01-04-2024 CNPN Telephone (UROLMN) JESÚS NOLAN ([id number]) 1935 F Date Time Provider Department 01/04/24 MARK CESAR During your visit today, we recorded the following information about you: Justinrogelio Khushboo 01/04/2024 10:24 AM Signed Mailed pt CT [...] Encounter Status:Closed by KHUSHBOO DAVILA on 01/04/24 Normal [facility] Laboratory - Microbiology an d Antimicrobial susceptibilityOrdered By: Brina Cordero on 01-04-2024 Bacteria identified Cx Nom (U) [facility] CNPNon 12-08-2023 CNPN Telephone (URFMOB) OVIDIOJESÚS ([id number]) 1935 F Date Time Provider Department 12/08/23 MARK CESAR URFMOB During your visit today, we recorded the following information about you: Mark Cesar PA-C 12/08/2023 3:23 PM Signed Left following our post-op visit. In reviewing with [...] Diagnosis:Nephrolithia sis [N20.0] Order(s):CT FLANK WO IVCON [[id number]] Order #: [id number] FUTURE Prescriptions as of 12/08/2023 - acetaminophen [...] Encounter Status:Closed by [facility] (UROLMN ) JESÚS NOLAN ([id number]) 1935 F Date Time Provider Department 12/06/23 2:30 PM MARK CESAR UROLUCIANA During your visit today, [...] Monocytes % 10/17/2023 9.5 % Final Abs [place] 10/17/2023 0.68 <0.87 k/uL Final Eosinophils % [...] (H) 74 - 99 mg/dL Final The [place] Diabetes Association (ADA) provides guidance for cutoff [...] Standards of Medical Care in Diabetes 2016, [place] [employer]. Diabetes Care. 2016.39(Suppl 1). BUN 10/17/2023 30 (H) 7 - 21 mg/dL Final Creatinine 10/17/2023 2.11 (H) 0.58 - 0.96 mg/dL Final Sodium 10/17/2023 143 (more content not included)... Normal [facility] KIDNEY/BLADDERon 12-06-19 US KIDNEY/BLADDER * * *Final Report* * [...] with Dr. Garland at 1:55pm on 12/06/23 Intelligence Director: [facility] Transcribe Date/Time: Dec 06 2023 1:44P Dictated by : ERICA OSBORN MD This examination was interpreted and the report reviewed and electronically signed by: ERICA OSBORN MD on Dec 06 2023 1:58PM EST [id number] Normal [facility] US Kidney - bilateral and Ur inary bladderon 12-06-2023 [facility] XR ABDOMEN 3V KUB W/OBLIQUES on 12-06-2023 [...] clips. Bones: Left hip prosthesis. Degenerative changes. Intelligence Director: [facility] Transcribe Date/Time: Dec 06 2023 2:00P Dictated by : ERICA OSBORN MD This examination was interpreted and the report reviewed and electronically signed by: ERICA OSBORN MD on Dec 06 2023 2:02PM EST [id number] Normal [facility] XR Abdomen GE 3 Views AP and Oblique and Coneon 12-06-2023 [facility] Basophils Auto (Bld) [#/Vol] on 11-12-2023 Basophils (Bld) [#/Vol] 0.0 10 3/uL 0.0-0.1 [facility] Basophils/100 WBC Auto (Bld) on 11-12-2023 Basophils/100 WBC (Bld) 0.2 % 0.2-2.0 F [facility] Eosinophils/100 WBC Auto (Bl d)on 11-12-2023 Eosinophils/100 WBC (Bld) 3.8 % 0.9-7.0 [facility] Erythrocyte distribution wid th Auto (RBC) [Ratio]on 11-12-2023 Erythrocyte distribution width (RBC) [Ratio] 13.6 % 11.0-15.0 [facility] Estimated glomerular filtrat ion rate (GFR) non- Americanon 11-12-2023 GFR/1.73 sq M.predicted among non-blacks MDRD (S/P/Bld) [Vol rate/Area] 23 mL/min/{1.73_m2} >=60 [facility] Hematocrit Auto (Bld) [Volum e fraction]on 11-12-2023 Hematocrit (Bld) [Volume fraction] 35.0 % 36.0-48.0 [facility] Hemoglobin [Mass/volume] in Bloodon 11-12-2023 Hemoglobin (Bld) [Mass/Vol] 10.7 g/dL 12.0-16.0 [facility] Laboratory - Chemistry and C hemistry - challengeon 11-12-2023 Albumin [Mass/Vol] 2.9 g/dL 3.4-5.0 [facility] Calcium [Mass/Vol] 8.5 mg/dL 8.5-10.1 [facility] Chloride [Moles/Vol] 104 mmol/L 98-107 [facility] CO2 [Moles/Vol] 29.4 mmol/L 21.0-32.0 [facility] Creatinine [Mass/Vol] 2.08 mg/dL 0.55-1.02 [facility] GFR/1.73 sq M.predicted MDRD (S/P/Bld) [Vol rate/Area] 27 mL/min/{1.73_m2} >=60 [facility] Glucose [Mass/Vol] 110 mg/dL 74-106 [facility] Magnesium [Mass/Vol] 2.2 mg/dL 1.8-2.4 [facility] Potassium [Moles/Vol] 4.3 mmol/L 3.5-5.1 [facility] Sodium [Moles/Vol] 142 mmol/L 136-145 [facility] Urate [Mass/Vol] 5.9 mg/dL 2.6-6.0 [facility] Urea nitrogen [Mass/Vol] 32.0 mg/dL 7.0-18.0 [facility] Urea nitrogen/Creatinine [Mass ratio] 15.4 mg/mg [facility] Laboratory - Hematology and Cell countson 11-12-2023 Immature granulocytes/100 WBC (Bld) 0.2 % 0.0-0.5 [facility] Leukocytes [#/volume] correc tavia for nucleated erythrocytes in Blood by Automated counon 11-12-2023 WBC corrected for nucl RBC Auto (Bld) [#/Vol] 5.7 10 3/uL 4.0-11.0 [facility] Lymphocytes Auto (Bld) [#/Vo l]on 11-12-2023 Lymphocytes (Bld) [#/Vol] 2.1 10 3/uL 1.2-3.8 [facility] Lymphocytes/100 WBC Auto (Bl d)on 11-12-2023 Lymphocytes/100 WBC (Bld) 36.9 % 20.5-60.0 [facility] MCH Auto (RBC) [Entitic mass ]on 11-12-2023 MCH (RBC) [Entitic mass] 31.7 pg 26.7-34.0 [facility] MCHC Auto (RBC) [Mass/Vol]on 11-12-2023 MCHC (RBC) [Mass/Vol] 30.6 g/dL 29.9-35.2 [facility] MCV Auto (RBC) [Entitic vol] on 11-12-2023 MCV (RBC) [Entitic vol] 103.6 fL 81.0-99.0 [facility] Monocytes Auto (Bld) [#/Vol] on 11-12-2023 Monocytes (Bld) [#/Vol] 0.7 10 3/uL 0.3-0.8 [facility] Monocytes/100 WBC Auto (Bld) on 11-12-2023 Monocytes/100 WBC (Bld) 11.7 % 1.7-12.0 [facility] Neutrophils Auto (Bld) [#/Vo l]on 11-12-2023 Neutrophils (Bld) [#/Vol] 2.7 10 3/uL 1.4-6.5 [facility] Neutrophils/100 WBC Auto (Bl d)on 11-12-2023 Neutrophils/100 WBC (Bld) 47.2 % 43.0-75.0 [facility] No Panel Informationon 11-12 Eosinophils # (Auto) 0.2 10 3/uL 0.0-0.7 [facility] Immature Granulocyte # (Auto) 0.01 10 3/uL 0.00-0.03 [facility] Parathyroid Hormone (Intact) 57 pg/mL 1565 [facility] Comment on above: Performed at: [address] [id number] Director: Sriram Knapp PhD, Phone: [phone] Phosphorus Level 3.8 mg/dL 2.6-4.7 [facility] Platelet mean volume Auto (B ld) [Entitic vol]on 11-12-2023 Platelet mean volume (Bld) [Entitic vol] 10.5 fL 9.5-13.5 [facility] Platelets Auto (Bld) [#/Vol] on 11-12-2023 Platelets (Bld) [#/Vol] 260 10 3/uL 150-450 [facility] RBC Auto (Bld) [#/Vol]on RBC (Bld) [#/Vol] 3.38 10 6/uL 4.20-5.40 [facility] Serum or plasma anion gap de terminationon 11-12-2023 Anion gap [Moles/Vol] 12.9 mmol/L [facility] CNOVon 10-27-2023 CNOV Office Visit (UROSMN ) JESÚS NOLAN ([id number]) 1935 F Date Time Provider Department 10/27/23 [...] Yes Patient was roomed in: Q9- 06 Table Hand offered:Patient accepts, visit chaperoned by daughter Patient [...] Instruction Provided To: Patient and family member Hypo Splasher Present: not applicable Discipline: Nursing Learning Topic: SURVIVAL SKILLS: Symptom Management Patient Evaluation: Verbalizes understanding: Yes Supplemental Material Given: Written Material Instructed By Christa Flanagan RN In Department Urology . One suture removed by from left side of back with suture removal kit. Dry bandaid applied to site. Ricco Garland MD 10/27/2023 1:12 PM Signed CYSTOSCOPY PROCEDURE [facility] NOTE Pertinent History and Physical Exam reviewed [...] Operative Finding (more content not included)... Normal [facility] Basic metabolic 2000 panelon 10-21-2023 Anion gap [Moles/Vol] 10 mmol/L Normal 9-18 [facility] Comment on above: Order Comment: Speci men Type: BLOOD SPECIMENOrdering Facility: [facility] Address: [address] [place] [address] Performed By: #### 2 4321-2 ####[facility] LABCLIA [id number] [address] [address] [place] Calcium [Mass/Vol] 8.7 mg/dL Normal 8.5-10.2 [facility] Comment on above: Order Comment: Speci men Type: BLOOD SPECIMENOrdering Facility: [facility] Address: [address] [place] [address] Performed By: #### 2 4321-2 ####[facility] LABCLIA [id number] [place] [address] [place] Chloride [Moles/Vol] 105 mmol/L Normal 97-105 [facility] Comment on above: Order Comment: Speci men Type: BLOOD SPECIMENOrdering Facility: [facility] Address: [address] [place] [address] Performed By: #### 2 4321-2 ####[facility] LABCLIA [id number] [place] [address] [place] CO2 [Moles/Vol] 27 mmol/L Normal 22-30 [facility] Comment on above: Order Comment: Speci men Type: BLOOD SPECIMENOrdering Facility: [facility] Address: [address] [place] [address] Performed By: #### 2 4321-2 ####[facility] LABCLIA [id number] [place] [address] [place] Creatinine [Mass/Vol] 2.04 mg/dL High 0.58-0.96 [facility] Comment on above: Order Comment: Speci men Type: BLOOD SPECIMENOrdering Facility: [facility] Address: [address] [place] [address] Performed By: #### 2 4321-2 ####[facility] LABCLIA [id number] [place] [address] [place] Creatinine and Glomerular filtration rate.predicted panel (S/P/Bld) 23 mL/min/1.73m??? Low >=60 [facility] Comment on above: Order Comment: Speci men Type: BLOOD SPECIMENOrdering Facility: [facility] Address: [address] [place] [address] Result Comment: Melissa mated Glomerular Filtration Rate [...] #### 2 4321-2 ####[facility] LABCLIA [id number] [place] [address] [place] Glucose [Mass/Vol] 180 mg/dL High 74-99 [facility] Comment on above: Order Comment: Speci men Type: BLOOD SPECIMENOrdering Facility: [facility] Address: [address] [place] [address] Result Comment: The [place] Diabetes Association (ADA) provides guidance for cutoff [...] Standards of Medical Care in Diabetes 2016, [place] [employer]. Diabetes Care. 2016.39(Suppl 1). Performed By: #### 2 4321-2 ####[facility] LABIA [id number] [place] [address] [place] Potassium [Moles/Vol] 3.5 mmol/L Low 3.7-5.1 [facility] Comment on above: Order Comment: Speci men Type: BLOOD SPECIMENOrdering Facility: [facility] Address: [address] [place] [address] Performed By: #### 2 4321-2 ####[facility] LABIA [id number] [place] [address] [place] Sodium [Moles/Vol] 142 mmol/L Normal 136-144 [facility] Comment on above: Order Comment: Speci men Type: BLOOD SPECIMENOrdering Facility: [facility] Address: [address] [place] [address] Performed By: #### 2 4321-2 ####[facility] LABCLIA [id number] [place] [address] [place] Urea nitrogen [Mass/Vol] 26 mg/dL High 7-21 [facility] Comment on above: Order Comment: Speci men Type: BLOOD SPECIMENOrdering Facility: [facility] Address: [address] [place] [address] Performed By: #### 2 4321-2 ####[facility] LABCLIA [id number] [place] [address] [place] CBC panel Auto (Bld)on 10-21 Erythrocyte distribution width (RBC) [Ratio] 13.1 % Normal 11.5-15.0 [facility] Comment on above: Order Comment: Speci men Type: BLOOD SPECIMENOrdering Facility: [facility] Address: [address] [place] [address] Performed By: #### 5 8410-2 ####[facility] LABIA [id number] [place] [address] [place] Hematocrit (Bld) [Volume fraction] 35.1 % Low 36.0-46.0 [facility] Comment on above: Order Comment: Speci men Type: BLOOD SPECIMENOrdering Facility: [facility] Address: [address] [place] [address] Performed By: #### 5 8410-2 ####[facility] LABIA [id number] [place] [address] [place] Hemoglobin (Bld) [Mass/Vol] 11.5 g/dL Normal 11.5-15.5 [facility] Comment on above: Order Comment: Speci men Type: BLOOD SPECIMENOrdering Facility: [facility] Address: [address] [place] [address] Performed By: #### 5 8410-2 ####[facility] LABIA [id number] [place] [address] [place] MCH (RBC) [Entitic mass] 31.6 pg Normal 26.0-34.0 [facility] Comment on above: Order Comment: Speci men Type: BLOOD SPECIMENOrdering Facility: [facility] Address: [address] [place] [address] Performed By: #### 5 8410-2 ####[facility] LABCLIA [id number] [place] [address] [place] MCHC (RBC) [Mass/Vol] 32.8 g/dL Normal 30.5-36.0 [facility] Comment on above: Order Comment: Speci men Type: BLOOD SPECIMENOrdering Facility: [facility] Address: [address] [place] [address] Performed By: #### 5 8410-2 ####[facility] LABCLIA [id number] [place] [address] [place] MCV (RBC) [Entitic vol] 96.4 fL Normal 80.0-100.0 C [facility] Comment on above: Order Comment: Speci men Type: BLOOD SPECIMENOrdering Facility: [facility] Address: [address] [place] [address] Performed By: #### 5 8410-2 ####[facility] LABCLIA [id number] [place] [address] [place] Nucleated RBC (Bld) [#/Vol] 10*3/uL Normal <0.01 [facility] Comment on above: Order Comment: Speci men Type: BLOOD SPECIMENOrdering Facility: [facility] Address: [address] [place] [address] Performed By: #### 5 8410-2 ####[facility] LABCLIA [id number] [place] [address] [place] Platelet mean volume (Bld) [Entitic vol] 10.7 fL Normal 9.0-12.7 [facility] Comment on above: Order Comment: Speci men Type: BLOOD SPECIMENOrdering Facility: [facility] Address: [address] [place] [address] Performed By: #### 5 8410-2 ####[facility] LABIA [id number] [place] [address] [place] Platelets (Bld) [#/Vol] 158 10*3/uL Normal 150-400 [facility] Comment on above: Order Comment: Speci men Type: BLOOD SPECIMENOrdering Facility: [facility] Address: [address] [place] [address] Performed By: #### 5 8410-2 ####[facility] LABIA [id number] [place] [address] [place] RBC (Bld) [#/Vol] 3.64 10*6/uL Low 3.90-5.20 [facility] Comment on above: Order Comment: Speci men Type: BLOOD SPECIMENOrdering Facility: [facility] Address: [address] [place] [address] Performed By: #### 5 8410-2 ####[facility] LABIA [id number] [place] [address] [place] WBC (Bld) [#/Vol] 8.61 10*3/uL Normal 3.70-11.00 [facility] Comment on above: Order Comment: Speci men Type: BLOOD SPECIMENOrdering Facility: [facility] Address: [address] [place] [address] Performed By: #### 5 8410-2 ####[facility] LABIA [id number] [address] [place] THERAPY NTon 10-21-2023 THERAPY NT HNO ID: [id number] Author: MERY KAUR OT/L Service: Occupational Therapy Author Type: Occupational Therapist Type: Therapy (PT/OT/Speech/Resp) Filed: 10/21/2023 10:57 Note Text: Occupational Therapy Evaluation Summary SERVICE DATE: 10/21/2023 SERVICE TIME: 44 to 1005 ROOM: [place] [address] OT 6 Clicks Score: 18 DISCHARGE RECOMMENDATIONS Subacute/SNF Recommended Discharge Disposition Comments: Return to [facility] Anticipated Discharge Needs: Physical Assist at Home [...] EOB > chair with min A and PRODUCT OWNER this date. 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 Baseline Cognition: Oriented to self, Oriented to [...] symptoms and signs-other TREATMENT INTERVENTIONS Evaluation, Self Senior Living Management ([address]) Timed Code Treatment (minutes): 13 Skilled Treatment Time (minutes): 28 TRAINING AND EDUCATION PROVIDED Activity Adaptation/Director Digital Analytics y Strategies, Altering Thinking Patterns, Adaptive Equipment/DME, [...] Therapy, Sensory Integration, Sitting Balance to Improve [place] with ADLs/Self-Care, Standing Balance to Improve [place] with ADLs/Self-Care, Transfer - Sit to Stand, [...] Type: Stepping Bed To Chair Transfer Equipment: (PRODUCT OWNER) Toilet/Commode Shower Functional Mobility GOALS Patient will demonstrate understanding (more content not included)... Normal [facility] Basic metabolic 2000 panelon 10-20-2023 Anion gap [Moles/Vol] 14 mmol/L Normal 9-18 [facility] Comment on above: Order Comment: Speci men Type: BLOOD SPECIMENOrdering Facility: [facility] Address: [address] [place] [address] Performed By: #### 2 4321-2 ####[facility] LABCLIA [id number] [place] [address] [place] Calcium [Mass/Vol] 9.2 mg/dL Normal 8.5-10.2 [facility] Comment on above: Order Comment: Speci men Type: BLOOD SPECIMENOrdering Facility: [facility] Address: [address] [place] [address] Performed By: #### 2 4321-2 ####[facility] LABCLIA [id number] [place] [address] [place] Chloride [Moles/Vol] 103 mmol/L Normal 97-105 [facility] Comment on above: Order Comment: Speci men Type: BLOOD SPECIMENOrdering Facility: [facility] Address: [address] [place] [address] Performed By: #### 2 4321-2 ####[facility] LABCLIA [id number] [place] [address] [place] CO2 [Moles/Vol] 25 mmol/L Normal 22-30 [facility] Comment on above: Order Comment: Speci men Type: BLOOD SPECIMENOrdering Facility: [facility] Address: [address] [place] [address] Performed By: #### 2 4321-2 ####[facility] LABCLIA [id number] [place] [address] [place] Creatinine [Mass/Vol] 1.90 mg/dL High 0.58-0.96 [facility] Comment on above: Order Comment: Speci men Type: BLOOD SPECIMENOrdering Facility: [facility] Address: [address] [place] [address] Performed By: #### 2 4321-2 ####[facility] LABCLIA [id number] [place] [address] [place] Creatinine and Glomerular filtration rate.predicted panel (S/P/Bld) 25 mL/min/1.73m??? Low >=60 [facility] Comment on above: Order Comment: Lalo mclaughlin Type: BLOOD SPECIMENOrdering Facility: [facility] Address: [address] [place] [address] Result Comment: Melissa mated Glomerular Filtration Rate [...] actual GFR. Performed By: #### 2 4321-2 ####[facility] [id number] [place] [address] [place] Glucose [Mass/Vol] 92 mg/dL Normal 74-99 [facility] Comment on above: Order Comment: Lalo mclaughlin Type: BLOOD SPECIMENOrdering Facility: [facility] Address: [address] [place] [address] Result Comment: The [place] [employer] (ADA) provides guidance for cutoff [...] Standards of Medical Care in Diabetes 2016, [place] [employer]. Diabetes Care. 2016.39(Suppl 1). Performed By: #### 2 4321-2 ####[facility] [id number] [place] [address] [place] Potassium [Moles/Vol] Normal [facility] Comment on above: Order Comment: Lalo mclaughlin Type: BLOOD SPECIMENOrdering Facility: [facility] Address: [address] [place] [address] Result Comment: Unab le to assay due to interference from hemolysis. Suggest reorder as clinically indicated. Performed By: #### 2 4321-2 ####[facility] LABIA [id number] [place] [address] [place] Sodium [Moles/Vol] 142 mmol/L Normal 136-144 [facility] Comment on above: Order Comment: Speci men Type: BLOOD SPECIMENOrdering Facility: [facility] Address: [address] [place] [address] Performed By: #### 2 4321-2 ####[facility] LABIA [id number] [address] [place] Urea nitrogen [Mass/Vol] 21 mg/dL Normal 7-21 [facility] Comment on above: Order Comment: Speci men Type: BLOOD SPECIMENOrdering Facility: [facility] Address: [address] [place] [address] Performed By: #### 2 4321-2 ####[facility] [id number] [address] [place] CNDSon 10-20-2023 CNDS HNO ID: [id number] Author: RICCO GARLAND MD Service: Urology Author Type: Physician Type: Discharge Summary Filed: 10/24/2023 20:32 Note Text: [place] [address] or ([phone]) [facility] E N T I A L I N F O R M A T I O N STANDARD [facility] DOCUMENT DISCHARGE SUMMARY Patient Name: Jesús Nolan [...] UP TO 2cm (Left) on 10/18. Subsequently PEDIATRIC PHYSIATRIST is required. Please contact your netbackup administrator to configure this SmartLink. was transferred [...] Medications These medications were sent to e- [facility]/pharmacy [address] [phone] [place] [address] amoxicillin 250 mg capsule tamsulosin 0.4 mg You can get these medications from any pharmacy You don't need a prescription for these medications acetaminophen 500 mg tablet Future Appointments: No future appointments. Electronically SIGNED by Licensed Independent Practitioner: MD Ricco Wilcox MD, FACS Director, Surgical Stone Disease, [facility] vessel operator, [facility] Medicine Pager [phone] 10/20/2023 Note: Due to patient confusion/combativenes s, we may need to hold discharge and revise this summary. Ricco Garland MD, FACS Director, Surgical Stone Disease, [facility] vessel operator, [facility] Medicine Pager [phone] 10/20/2023 Normal [facility] CONSULTon 10-20-2023 CONSULT HNO ID: [id number] Author: FANTA MEDELLIN MD Service: Psychiatry Author Type: Physician Type: Consults Filed: 10/21/2023 18:06 Note Text: PSYCHIATRY CONSULT SERVICE MEDICAL STUDENT INITIAL CONSULT NOTE DAY TIME COVERAGE: Between 8AM to 5PM, page [phone] NIGHT AND WEEKEND COVERAGE: After hours (5PM to 8AM) and weekends, page [phone] SERVICE DATE: October 20, 2023 SERVICE TIME: [...] medically managed RECOMMENDATIONS: -Delirium protocol - 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 - Please AVOID opioids, benzodiazepines, or anticholinergic medications. - Psych to follow up while inpatient Jose KUMAR [phone] ____ This note was generated by a [...] is a 88 year old female from [place], [place]. History of Present Illness: She is [...] daughter and son in law in the [place] [facility] [place] area. She was well-groomed and dressed [...] SYMPTOMS: Depressio (more content not included)... Normal [facility] NURSING PROGon 10-20-2023 NURSING PROG HNO ID: [id number] Author: MIRIAN WALSH, RN Service: Nursing Author [...] and given in the left thigh. Mirian Walsh BSN RN Normal [facility] THERAPY NTon 10-20-2023 THERAPY NT HNO ID: [id number] Author: [place] GATICA PT Service: Physical Therapy Author Type: Physical Therapist Type: Therapy (PT/OT/Speech/Resp) Filed: 10/20/2023 12:00 Note Text: PHYSICAL THERAPY MISSED VISIT SERVICE DATE: 10/20/2023 SERVICE TIME: 942 ROOM: [place] [address] Patient not seen due to: Spoke with CM who stated the patient is being discharged. SIGNATURE: Oh Gatica PT PATIENT NAME: Jesús Nolan DATE: October 20, 2023 TIME: 11:59 AM Normal [facility] THERAPY NT HNO ID: [id number] Author: MERY KAUR OT/L Service: Occupational Therapy Author Type: Occupational Therapist Type: Therapy (PT/OT/Speech/Resp) Filed: 10/20/2023 09:49 Note Text: OCCUPATIONAL THERAPY MISSED VISIT SERVICE DATE: 10/20/2023 SERVICE TIME: 0815 ROOM: [place] [address] Patient not seen due to Clinical Appropriateness. OT attempted eval this AM- pt combative, aggressive, and verbally abusive towards therapist. Pt now with active discharge order for this AM. OT will reattempt if necessary. SIGNATURE: Mery Kaur OT/L PATIENT NAME: Jesús Nolan DATE: October 20, 2023 TIME: 9:47 AM Normal [facility] Basic metabolic 2000 panelon 10-19-2023 Anion gap [Moles/Vol] 11 mmol/L Normal 9-18 [facility] Comment on above: Order Comment: Speci men Type: BLOOD SPECIMENOrdering Facility: [facility] Address: [address] [place] [address] Performed By: #### 2 4321-2 ####[facility] LABCLIA [id number] [place] [address] [place] Calcium [Mass/Vol] 8.6 mg/dL Normal 8.5-10.2 [facility] Comment on above: Order Comment: Speci men Type: BLOOD SPECIMENOrdering Facility: [facility] Address: [address] [place] [address] Performed By: #### 2 4321-2 ####[facility] LABCLIA [id number] [place] [address] [place] Chloride [Moles/Vol] 105 mmol/L Normal 97-105 [facility] Comment on above: Order Comment: Speci men Type: BLOOD SPECIMENOrdering Facility: [facility] Address: [address] [place] [address] Performed By: #### 2 4321-2 ####[facility] LABCLIA [id number] [place] [address] [place] CO2 [Moles/Vol] 26 mmol/L Normal 22-30 [facility] Comment on above: Order Comment: Speci men Type: BLOOD SPECIMENOrdering Facility: [facility] Address: [address] [place] [address] Performed By: #### 2 4321-2 ####[facility] LABCLIA [id number] [place] [address] [place] Creatinine [Mass/Vol] 2.02 mg/dL High 0.58-0.96 [facility] Comment on above: Order Comment: Lalo mclaughlin Type: BLOOD SPECIMENOrdering Facility: [facility] Address: [address] [place] [address] Performed By: #### 2 4321-2 ####[facility] LABCLIA [id number] [place] [address] [place] Creatinine and Glomerular filtration rate.predicted panel (S/P/Bld) 24 mL/min/1.73m??? Low >=60 [facility] Comment on above: Order Comment: Lalo mclaughlin Type: BLOOD SPECIMENOrdering Facility: [facility] Address: [address] [place] [address] Result Comment: Melissa mated Glomerular Filtration Rate [...] #### 2 4321-2 ####[facility] LABIA [id number] [place] [address] [place] Glucose [Mass/Vol] 131 mg/dL High 74-99 [facility] Comment on above: Order Comment: Lalo mclaughlin Type: BLOOD SPECIMENOrdering Facility: [facility] Address: [address] [place] [address] Result Comment: The [place] Diabetes Association (ADA) provides guidance for cutoff [...] Standards of Medical Care in Diabetes 2016, [place] [employer]. Diabetes Care. 2016.39(Suppl 1). Performed By: #### 2 4321-2 ####[facility] LABCLIA [id number] [place] [address] [place] Potassium [Moles/Vol] 3.9 mmol/L Normal 3.7-5.1 [facility] Comment on above: Order Comment: Speci men Type: BLOOD SPECIMENOrdering Facility: [facility] Address: [address] [place] [address] Performed By: #### 2 4321-2 ####[facility] LABIA [id number] [place] [address] [place] Sodium [Moles/Vol] 142 mmol/L Normal 136-144 [facility] Comment on above: Order Comment: Speci men Type: BLOOD SPECIMENOrdering Facility: [facility] Address: [address] [place] [address] Performed By: #### 2 4321-2 ####[facility] LABIA [id number] [place] [address] [place] Urea nitrogen [Mass/Vol] 25 mg/dL High 7-21 [facility] Comment on above: Order Comment: Speci men Type: BLOOD SPECIMENOrdering Facility: [facility] Address: [address] [place] [address] Performed By: #### 2 4321-2 ####[facility] LABIA [id number] [place] [address] [place] CBC W Auto Differential pane l (Bld)on 10-19-2023 Basophils (Bld) [#/Vol] 10*3/uL Normal <0.11 [facility] Comment on above: Order Comment: Speci men Type: BLOOD SPECIMENOrdering Facility: [facility] Address: [address] [place] [address] Performed By: #### 5 7021-8 ####[facility] LABIA [id number] [place] [address] [place] Basophils/100 WBC (Bld) 0.2 % Normal C [facility] Comment on above: Order Comment: Speci men Type: BLOOD SPECIMENOrdering Facility: [facility] Address: [address] [place] [address] Performed By: #### 5 7021-8 ####[facility] LABCLIA [id number] [place] [address] [place] Differential cell count method Nom (Bld) Auto Normal [facility] Comment on above: Order Comment: Speci men Type: BLOOD SPECIMENOrdering Facility: [facility] Address: [address] [place] [address] Performed By: #### 5 7021-8 ####[facility] LABCLIA [id number] [place] [address] [place] Eosinophils (Bld) [#/Vol] 0.03 10*3/uL Normal <0.46 [facility] Comment on above: Order Comment: Speci men Type: BLOOD SPECIMENOrdering Facility: [facility] Address: [address] [place] [address] Performed By: #### 5 7021-8 ####[facility] LABCLIA [id number] [place] [address] [place] Eosinophils/100 WBC (Bld) 0.2 % Normal [facility] Comment on above: Order Comment: Speci men Type: BLOOD SPECIMENOrdering Facility: [facility] Address: [address] [place] [address] Performed By: #### 5 7021-8 ####[facility] LABCLIA [id number] [place] [address] [place] Erythrocyte distribution width (RBC) [Ratio] 13.3 % Normal 11.5-15.0 [facility] Comment on above: Order Comment: Speci men Type: BLOOD SPECIMENOrdering Facility: [facility] Address: [address] [place] [address] Performed By: #### 5 7021-8 ####[facility] LABCLIA [id number] [place] [address] [place] Hematocrit (Bld) [Volume fraction] 36.8 % Normal 36.0-46.0 [facility] Comment on above: Order Comment: Speci men Type: BLOOD SPECIMENOrdering Facility: [facility] Address: [address] [place] [address] Performed By: #### 5 7021-8 ####[facility] LABCLIA [id number] [place] [address] [place] Hemoglobin (Bld) [Mass/Vol] 11.8 g/dL Normal 11.5-15.5 [facility] Comment on above: Order Comment: Speci men Type: BLOOD SPECIMENOrdering Facility: [facility] Address: [address] [place] [address] Performed By: #### 5 7021-8 ####[facility] LABIA [id number] [place] [address] [place] Immature granulocytes (Bld) [#/Vol] 0.05 10*3/uL Normal <0.10 [facility] Comment on above: Order Comment: Speci men Type: BLOOD SPECIMENOrdering Facility: [facility] Address: [address] [place] [address] Performed By: #### 5 7021-8 ####[facility] LABCLIA [id number] [place] [address] [place] Immature granulocytes/100 WBC (Bld) 0.4 % Normal [facility] Comment on above: Order Comment: Speci men Type: BLOOD SPECIMENOrdering Facility: [facility] Address: [address] [place] [address] Performed By: #### 5 7021-8 ####[facility] LABIA [id number] [place] [address] [place] Lymphocytes (Bld) [#/Vol] 1.26 10*3/uL Normal 1.00-4.00 [facility] Comment on above: Order Comment: Speci men Type: BLOOD SPECIMENOrdering Facility: [facility] Address: [address] [place] [address] Performed By: #### 5 7021-8 ####[facility] LABCLIA [id number] [place] [address] [place] Lymphocytes/100 WBC (Bld) 10.1 % Normal [facility] Comment on above: Order Comment: Speci men Type: BLOOD SPECIMENOrdering Facility: [facility] Address: [address] [place] [address] Performed By: #### 5 7021-8 ####[facility] LABIA [id number] [place] [address] [place] MCH (RBC) [Entitic mass] 32.6 pg Normal 26.0-34.0 [facility] Comment on above: Order Comment: Speci men Type: BLOOD SPECIMENOrdering Facility: [facility] Address: [address] [place] [address] Performed By: #### 5 7021-8 ####[facility] LABIA [id number] [place] [address] [place] MCHC (RBC) [Mass/Vol] 32.1 g/dL Normal 30.5-36.0 [facility] Comment on above: Order Comment: Speci men Type: BLOOD SPECIMENOrdering Facility: [facility] Address: [address] [place] [address] Performed By: #### 5 7021-8 ####[facility] LABIA [id number] [place] [address] [place] MCV (RBC) [Entitic vol] 101.7 fL High 80.0-100.0 C [facility] Comment on above: Order Comment: Speci men Type: BLOOD SPECIMENOrdering Facility: [facility] Address: [address] [place] [address] Performed By: #### 5 7021-8 ####[facility] LABCLIA [id number] [place] [address] [place] Monocytes (Bld) [#/Vol] 1.09 10*3/uL High <0.87 [facility] Comment on above: Order Comment: Speci men Type: BLOOD SPECIMENOrdering Facility: [facility] Address: [address] [place] [address] Performed By: #### 5 7021-8 ####[facility] LABCLIA [id number] [place] [address] [place] Monocytes/100 WBC (Bld) 8.7 % Normal [facility] Comment on above: Order Comment: Speci men Type: BLOOD SPECIMENOrdering Facility: [facility] Address: [address] [place] [address] Performed By: #### 5 7021-8 ####[facility] LABCLIA [id number] [place] [address] [place] Neutrophils (Bld) [#/Vol] 10.04 10*3/uL High 1.45-7.50 [facility] Comment on above: Order Comment: Speci men Type: BLOOD SPECIMENOrdering Facility: [facility] Address: [address] [place] [address] Performed By: #### 5 7021-8 ####[facility] LABCLIA [id number] [place] [address] [place] Neutrophils/100 WBC (Bld) 80.4 % Normal [facility] Comment on above: Order Comment: Speci men Type: BLOOD SPECIMENOrdering Facility: [facility] Address: [address] [place] [address] Performed By: #### 5 7021-8 ####[facility] LABCLIA [id number] [place] [id number] [address] [place] Nucleated RBC (Bld) [#/Vol] 10*3/uL Normal <0.01 [facility] Comment on above: Order Comment: Speci men Type: BLOOD SPECIMENOrdering Facility: [facility] Address: [address] [place] [address] Performed By: #### 5 7021-8 ####[facility] LABCLIA [id number] [place] [address] [place] Nucleated RBC/100 WBC (Bld) [Ratio] 0.0 /100 WBC Normal [facility] Comment on above: Order Comment: Speci men Type: BLOOD SPECIMENOrdering Facility: [facility] Address: [address] [place] [address] Performed By: #### 5 7021-8 ####[facility] LABCLIA [id number] [place] [address] [place] Platelet mean volume (Bld) [Entitic vol] 10.6 fL Normal 9.0-12.7 [facility] Comment on above: Order Comment: Speci men Type: BLOOD SPECIMENOrdering Facility: [facility] Address: [address] [place] [address] Performed By: #### 5 7021-8 ####[facility] LABCLIA [id number] [place] [address] [place] Platelets (Bld) [#/Vol] 168 10*3/uL Normal 150-400 [facility] Comment on above: Order Comment: Speci men Type: BLOOD SPECIMENOrdering Facility: [facility] Address: [address] [place] [address] Performed By: #### 5 7021-8 ####[facility] LABCLIA [id number] [place] [address] [place] RBC (Bld) [#/Vol] 3.62 10*6/uL Low 3.90-5.20 [facility] Comment on above: Order Comment: Speci men Type: BLOOD SPECIMENOrdering Facility: [facility] Address: [facility] [place] [address] Performed By: #### 5 7021-8 ####[facility] [id number] [place] [id number] [place] WBC (Bld) [#/Vol] 12.49 10*3/uL High 3.70-11.00 [facility] Comment on above: Order Comment: Speci men Type: BLOOD SPECIMENOrdering Facility: [facility] Address: [address] [place] [id number] Performed By: #### 5 7021-8 ####[facility] [id number] [place] [id number] [place] ANES POSTPROC EVALon 024 ANES POSTPROC EVAL HNO ID: [id number] Author: ESVIN ALLEN MD Service: ? Author Type: Anesthesiologist Type: Anesthesia Postprocedure Evaluation Filed: 10/18/2023 12:06 Note Text: POST ANESTHESIA EVALUATION NOTE : 1935 Procedure Summary Date: 10/18/23 Room / Location: [address] Anesthesia Start: 732 Anesthesia Stop: 1057 Procedure: [...] October 18, 2023 TIME: 12:06 PM CSN: [id number] Normal [facility] ANES PRE-OPon 10-18-2023 ANES PRE-OP HNO ID: [id number] Author: ESVIN ALLEN MD Service: ? Author Type: Anesthesiologist Type: Anesthesia Preprocedure Evaluation Filed: 10/18/2023 07:50 Note Text: ANESTHESIOLOGY DAY OF SURGERY NOTE : 1935 Procedure Information Anesthesia Start Date/Time: 10/18/23 0733 Procedure: PERC NEPHROLITHOTOMY LITHOTRIPSY,STONE EXTRACTION,ANTEGRADE URETEROSCOPY,STENT PLACEMENT WHEN PERFORMED INCD IMAGING UP TO 2cm (Left: Kidney) Location: MAIN OR23 / [facility] Surgeons: Ricco Garland MD Estimated [...] and consent discussed: yes. Patient / Responsible Alliance Party agrees to proceed: yes Patient / [...] October 18, 2023 TIME: 7:49 AM CSN: [id number] Normal [facility] Bacteria Ur Culton Bacteria identified Cx Nom (U) CULTURE, URINE: No growth (<1,000 CFU/ml) Normal [facility] Comment on above: Performed By: #### 6 30-4 ####[facility] LABCLIA [id number] [place] [address] [place] Basic metabolic 2000 panelon 10-18-2023 Anion gap [Moles/Vol] 14 mmol/L Normal 9-18 [facility] Comment on above: Order Comment: Speci men Type: BLOOD SPECIMENOrdering Facility: [facility] Address: [address] [place] [address] Performed By: #### 2 4321-2 ####[facility] LABCLIA [id number] [place] [address] [place] Calcium [Mass/Vol] 8.0 mg/dL Low 8.5-10.2 [facility] Comment on above: Order Comment: Speci men Type: BLOOD SPECIMENOrdering Facility: [facility] Address: [address] [place] [address] Performed By: #### 2 4321-2 ####[facility] LABCLIA [id number] [place] [address] [place] Chloride [Moles/Vol] 106 mmol/L High 97-105 [facility] Comment on above: Order Comment: Speci men Type: BLOOD SPECIMENOrdering Facility: [facility] Address: [address] [place] [address] Performed By: #### 2 4321-2 ####[facility] LABCLIA [id number] [place] [address] [place] CO2 [Moles/Vol] 24 mmol/L Normal 22-30 [facility] Comment on above: Order Comment: Speci men Type: BLOOD SPECIMENOrdering Facility: [facility] Address: [address] [place] [address] Performed By: #### 2 4321-2 ####[facility] LABCLIA [id number] [place] [address] [place] Creatinine [Mass/Vol] 1.91 mg/dL High 0.58-0.96 [facility] Comment on above: Order Comment: Speci men Type: BLOOD SPECIMENOrdering Facility: [facility] Address: [address] [place] [address] Performed By: #### 2 4321-2 ####[facility] LABCLIA [id number] [place] [address] [place] Creatinine and Glomerular filtration rate.predicted panel (S/P/Bld) 25 mL/min/1.73m??? Low >=60 [facility] Comment on above: Order Comment: Lalo mclaughlin Type: BLOOD SPECIMENOrdering Facility: [facility] Address: [address] [place] [address] Result Comment: Melissa mated Glomerular Filtration Rate [...] #### 2 4321-2 ####[facility] LABCLIA [id number] [place] [address] [place] Glucose [Mass/Vol] 197 mg/dL High 74-99 [facility] Comment on above: Order Comment: Lalo mclaughlin Type: BLOOD SPECIMENOrdering Facility: [facility] Address: [address] [place] [address] Result Comment: The [place] Diabetes Association (ADA) provides guidance for cutoff [...] Standards of Medical Care in Diabetes 2016, [place] [employer]. Diabetes Care. 2016.39(Suppl 1). Performed By: #### 2 4321-2 ####[facility] LABCLIA [id number] [place] [address] [place] Potassium [Moles/Vol] 4.0 mmol/L Normal 3.7-5.1 [facility] Comment on above: Order Comment: Speci men Type: BLOOD SPECIMENOrdering Facility: [facility] Address: [address] [place] [address] Performed By: #### 2 4321-2 ####[facility] LABCLIA [id number] [place] [address] [place] Sodium [Moles/Vol] 144 mmol/L Normal 136-144 [facility] Comment on above: Order Comment: Speci men Type: BLOOD SPECIMENOrdering Facility: [facility] Address: [address] [place] [address] Performed By: #### 2 4321-2 ####[facility] LABCLIA [id number] [address] [place] Urea nitrogen [Mass/Vol] 25 mg/dL High 7-21 [facility] Comment on above: Order Comment: Speci men Type: BLOOD SPECIMENOrdering Facility: [facility] Address: [address] [place] [address] Performed By: #### 2 4321-2 ####[facility] LABCLIA [id number] [address] [place] CALCULI ANALYSISon 4 Calculus analysis [Interp] Normal [facility] Comment on above: Order Comment: Speci men Type: CALCULUS SPECIMENOrdering Facility: [facility] Address: [address] [place] [address] Result Comment: This test was developed and its performance characteristics determined by [facility]'s [facility] [place] ([facility]). It has not been cleared or approved by the FDA. [facility] is regulated under CLIA as qualified to perform high-complexity testing. This test is used for clinical purposes. It should not be regarded as investigational or for research. Performed By: #### C SA ####[facility] LABCLIA [id number] [place] [address] [place] CALCULUS COLOR MEDINA Normal [facility] Comment on above: Order Comment: Speci men Type: CALCULUS SPECIMENOrdering Facility: [facility] Address: [address] [place] [address] Performed By: #### C SA ####[facility] LABCLIA [id number] [place] [address] [place] CALCULUS COMPOSITION 1 60% Calcium Phosphate Normal [facility] Comment on above: Order Comment: Speci men Type: CALCULUS SPECIMENOrdering Facility: [facility] Address: [address] [place] [address] Performed By: #### C SA ####[facility] LABIA [id number] [place] [address] [place] CALCULUS COMPOSITION 2 40% Magnesium Amm onium Phosphate Normal [facility] Comment on above: Order Comment: Speci men Type: CALCULUS SPECIMENOrdering Facility: [facility] Address: [address] [place] [address] Performed By: #### C SA ####[facility] LABIA [id number] [place] [address] [place] CALCULUS SIZE AND WT Multiple pieces. 12.1620 GRAMS Normal [facility] Comment on above: Order Comment: Speci men Type: CALCULUS SPECIMENOrdering Facility: [facility] Address: [address] [place] [address] Performed By: #### C SA ####[facility] LABIA [id number] [place] [address] [place] CALCULUS TYPE CALCULI/CALCULUS Normal [facility] Comment on above: Order Comment: Speci men Type: CALCULUS SPECIMENOrdering Facility: [facility] Address: [address] [place] [address] Performed By: #### C SA ####[facility] LABIA [id number] [place] [address] [place] CBC panel Auto (Bld)on 10-18 Erythrocyte distribution width (RBC) [Ratio] 13.2 % Normal 11.5-15.0 [facility] Comment on above: Order Comment: Speci men Type: BLOOD SPECIMENOrdering Facility: [facility] Address: [address] [place] [address] Performed By: #### 5 8410-2 ####[facility] LABCLIA [id number] [place] [address] [place] Hematocrit (Bld) [Volume fraction] 37.0 % Normal 36.0-46.0 [facility] Comment on above: Order Comment: Speci men Type: BLOOD SPECIMENOrdering Facility: [facility] Address: [address] [place] [address] Performed By: #### 5 8410-2 ####[facility] LABCLIA [id number] [place] [address] [place] Hemoglobin (Bld) [Mass/Vol] 11.8 g/dL Normal 11.5-15.5 [facility] Comment on above: Order Comment: Speci men Type: BLOOD SPECIMENOrdering Facility: [facility] Address: [address] [place] [address] Performed By: #### 5 8410-2 ####[facility] LABCLIA [id number] [place] [address] [place] MCH (RBC) [Entitic mass] 31.7 pg Normal 26.0-34.0 [facility] Comment on above: Order Comment: Speci men Type: BLOOD SPECIMENOrdering Facility: [facility] Address: [address] [place] [address] Performed By: #### 5 8410-2 ####[facility] LABCLIA [id number] [place] [address] [place] MCHC (RBC) [Mass/Vol] 31.9 g/dL Normal 30.5-36.0 [facility] Comment on above: Order Comment: Speci men Type: BLOOD SPECIMENOrdering Facility: [facility] Address: [address] [place] [address] Performed By: #### 5 8410-2 ####[facility] LABCLIA [id number] [place] [address] [place] MCV (RBC) [Entitic vol] 99.5 fL Normal 80.0-100.0 C [facility] Comment on above: Order Comment: Speci men Type: BLOOD SPECIMENOrdering Facility: [facility] Address: [address] [place] [address] Performed By: #### 5 8410-2 ####[facility] LABIA [id number] [place] [address] [place] Nucleated RBC (Bld) [#/Vol] 10*3/uL Normal <0.01 [facility] Comment on above: Order Comment: Speci men Type: BLOOD SPECIMENOrdering Facility: [facility] Address: [address] [place] [address] Performed By: #### 5 8410-2 ####[facility] LABIA [id number] [place] [address] [place] Platelet mean volume (Bld) [Entitic vol] 10.4 fL Normal 9.0-12.7 [facility] Comment on above: Order Comment: Speci men Type: BLOOD SPECIMENOrdering Facility: [facility] Address: [address] [place] [address] Performed By: #### 5 8410-2 ####[facility] LABIA [id number] [place] [address] [place] Platelets (Bld) [#/Vol] 165 10*3/uL Normal 150-400 [facility] Comment on above: Order Comment: Speci men Type: BLOOD SPECIMENOrdering Facility: [facility] Address: [address] [place] [address] Performed By: #### 5 8410-2 ####[facility] LABCLIA [id number] [place] [address] [place] RBC (Bld) [#/Vol] 3.72 10*6/uL Low 3.90-5.20 [facility] Comment on above: Order Comment: Speci men Type: BLOOD SPECIMENOrdering Facility: [facility] Address: [address] [place] [address] Performed By: #### 5 8410-2 ####[facility] LABIA [id number] [place] [address] [place] WBC (Bld) [#/Vol] 18.32 10*3/uL High 3.70-11.00 [facility] Comment on above: Order Comment: Speci men Type: BLOOD SPECIMENOrdering Facility: [facility] Address: [address] [place] [address] Performed By: #### 5 8410-2 ####[facility] [id number] [place] [address] [place] OPERATIVE NOon 10-18-2023 OPERATIVE NO HNO ID: [id number] Author: RICCO GARLAND MD Service: Urology Author Type: Physician Type: Operative Report Filed: 10/18/2023 11:07 Note Text: OPERATIVE/PROCEDURE REPORT LOG ID: [id number] Surgery/Procedure Date: 10/18/2023 Incision/Procedure Start Time: 8:31 AM Incision Close/Procedure End Time: 10:20 AM Surgeon(s)/Procedurali st(s) and Weight Reducing Technician(s): Surgeon(s) and Role: * Ricco Garland MD [...] < 1 hr Anesthesia: General Findings: Stone Bowie: 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 Flexible nephroscopy was then performed [...] 20 Johan (more content not included)... Normal [facility] XR CHEST 1V FRONTAL PORTon 0 10-18-2023 XR CHEST 1V FRONTAL PORT * * *Final Repo rt* * * DATE OF EXAM: Oct 18 [...] normal limits. IMPRESSION: No acute cardiopulmonary process. Intelligence Director: PSCB Transcribe Date/Time: Oct 18 2023 11:35A Dictated by : CHARLIE JOHNSON MD This examination was interpreted and the report reviewed and electronically signed by: CHARLIE JOHNSON MD on Oct 18 2023 11:35AM EST [id number] Normal [facility] Bacteria Ur Culton Bacteria identified Cx Nom (U) CULTURE, URINE: No growth (<1,000 CFU/ml) Normal [facility] Comment on above: Performed By: #### 6 30-4 ####[facility] LABCLIA [id number] [place] [address] [place] Basic metabolic 2000 panelon 10-17-2023 Anion gap [Moles/Vol] 17 mmol/L Normal 9-18 [facility] Comment on above: Order Comment: Speci men Type: BLOOD SPECIMENOrdering Facility: [facility] Address: [address] [place] [address] Performed By: #### 2 4321-2 ####[facility] LABCLIA [id number] [place] [address] [place] Calcium [Mass/Vol] 9.7 mg/dL Normal 8.5-10.2 [facility] Comment on above: Order Comment: Speci men Type: BLOOD SPECIMENOrdering Facility: [facility] Address: [address] [place] [address] Performed By: #### 2 4321-2 ####[facility] LABCLIA [id number] [place] [address] [place] Chloride [Moles/Vol] 103 mmol/L Normal 97-105 [facility] Comment on above: Order Comment: Speci men Type: BLOOD SPECIMENOrdering Facility: [facility] Address: [address] [place] [address] Performed By: #### 2 4321-2 ####[facility] LABCLIA [id number] [place] [address] [place] CO2 [Moles/Vol] 23 mmol/L Normal 22-30 [facility] Comment on above: Order Comment: Speci men Type: BLOOD SPECIMENOrdering Facility: [facility] Address: [address] [place] [address] Performed By: #### 2 4321-2 ####[facility] LABCLIA [id number] [place] [address] [place] Creatinine [Mass/Vol] 2.11 mg/dL High 0.58-0.96 [facility] Comment on above: Order Comment: Speci men Type: BLOOD SPECIMENOrdering Facility: [facility] Address: [address] [place] [address] Performed By: #### 2 4321-2 ####[facility] LABIA [id number] [place] [address] [place] Creatinine and Glomerular filtration rate.predicted panel (S/P/Bld) 22 mL/min/1.73m??? Low >=60 [facility] Comment on above: Order Comment: Speci men Type: BLOOD SPECIMENOrdering Facility: [facility] Address: [address] [place] [address] Result Comment: Melissa mated Glomerular Filtration Rate [...] #### 2 4321-2 ####[facility] LABCLIA [id number] [place] [address] [place] Glucose [Mass/Vol] 129 mg/dL High 74-99 [facility] Comment on above: Order Comment: Speci men Type: BLOOD SPECIMENOrdering Facility: [facility] Address: [address] [place] [address] Result Comment: The [place] Diabetes [employer] (ADA) provides guidance for cutoff [...] Standards of Medical Care in Diabetes 2016, [place] [employer]. Diabetes Care. 2016.39(Suppl 1). Performed By: #### 2 4321-2 ####[facility] LABIA [id number] [place] [address] [place] Potassium [Moles/Vol] 4.3 mmol/L Normal 3.7-5.1 [facility] Comment on above: Order Comment: Speci men Type: BLOOD SPECIMENOrdering Facility: [facility] Address: [address] [place] [address] Performed By: #### 2 4321-2 ####[facility] LABIA [id number] [place] [address] [place] Sodium [Moles/Vol] 143 mmol/L Normal 136-144 [facility] Comment on above: Order Comment: Speci men Type: BLOOD SPECIMENOrdering Facility: [facility] Address: [address] [place] [address] Performed By: #### 2 4321-2 ####[facility] LABIA [id number] [place] [address] [place] Urea nitrogen [Mass/Vol] 30 mg/dL High 7-21 [facility] Comment on above: Order Comment: Speci men Type: BLOOD SPECIMENOrdering Facility: [facility] Address: [address] [place] [address] Performed By: #### 2 4321-2 ####[facility] LABCLIA [id number] [place] [address] [place] CBC W Auto Differential pane l (Bld)on 10-17-2023 Basophils (Bld) [#/Vol] 10*3/uL Normal <0.11 C [facility] Comment on above: Order Comment: Speci men Type: BLOOD SPECIMENOrdering Facility: [facility] Address: [address] [place] [address] Performed By: #### 5 7021-8 ####[facility] LABCLIA [id number] [place] [address] [place] Basophils/100 WBC (Bld) 0.1 % Normal C [facility] Comment on above: Order Comment: Speci men Type: BLOOD SPECIMENOrdering Facility: [facility] Address: [address] [place] [address] Performed By: #### 5 7021-8 ####[facility] LABCLIA [id number] [place] [address] [place] Differential cell count method Nom (Bld) Auto Normal [facility] Comment on above: Order Comment: Speci men Type: BLOOD SPECIMENOrdering Facility: [facility] Address: [address] [place] [address] Performed By: #### 5 7021-8 ####[facility] LABCLIA [id number] [place] [address] [place] Eosinophils (Bld) [#/Vol] 0.07 10*3/uL Normal <0.46 [facility] Comment on above: Order Comment: Speci men Type: BLOOD SPECIMENOrdering Facility: [facility] Address: [address] [place] [address] Performed By: #### 5 7021-8 ####[facility] LABCLIA [id number] [place] [address] [place] Eosinophils/100 WBC (Bld) 1.0 % Normal [facility] Comment on above: Order Comment: Speci men Type: BLOOD SPECIMENOrdering Facility: [facility] Address: [address] [place] [address] Performed By: #### 5 7021-8 ####[facility] LABCLIA [id number] [place] [address] [place] Erythrocyte distribution width (RBC) [Ratio] 13.2 % Normal 11.5-15.0 [facility] Comment on above: Order Comment: Speci men Type: BLOOD SPECIMENOrdering Facility: [facility] Address: [address] [place] [address] Performed By: #### 5 7021-8 ####[facility] LABCLIA [id number] [place] [address] [place] Hematocrit (Bld) [Volume fraction] 40.4 % Normal 36.0-46.0 [facility] Comment on above: Order Comment: Speci men Type: BLOOD SPECIMENOrdering Facility: [facility] Address: [address] [place] [address] Performed By: #### 5 7021-8 ####[facility] LABCLIA [id number] [place] [address] [place] Hemoglobin (Bld) [Mass/Vol] 13.1 g/dL Normal 11.5-15.5 [facility] Comment on above: Order Comment: Speci men Type: BLOOD SPECIMENOrdering Facility: [facility] Address: [address] [place] [address] Performed By: #### 5 7021-8 ####[facility] LABCLIA [id number] [place] [address] [place] Immature granulocytes (Bld) [#/Vol] 10*3/uL Normal <0.10 [facility] Comment on above: Order Comment: Speci men Type: BLOOD SPECIMENOrdering Facility: [facility] Address: [address] [place] [address] Performed By: #### 5 7021-8 ####[facility] LABCLIA [id number] [place] [address] [place] Immature granulocytes/100 WBC (Bld) 0.3 % Normal [facility] Comment on above: Order Comment: Speci men Type: BLOOD SPECIMENOrdering Facility: [facility] Address: [address] [place] [address] Performed By: #### 5 7021-8 ####[facility] LABCLIA [id number] [place] [address] [place] Lymphocytes (Bld) [#/Vol] 2.21 10*3/uL Normal 1.00-4.00 [facility] Comment on above: Order Comment: Speci men Type: BLOOD SPECIMENOrdering Facility: [facility] Address: [address] [place] [address] Performed By: #### 5 7021-8 ####[facility] LABCLIA [id number] [place] [address] [place] Lymphocytes/100 WBC (Bld) 30.8 % Normal [facility] Comment on above: Order Comment: Speci men Type: BLOOD SPECIMENOrdering Facility: [facility] Address: [address] [place] [address] Performed By: #### 5 7021-8 ####[facility] LABIA [id number] [place] [address] [place] MCH (RBC) [Entitic mass] 31.9 pg Normal 26.0-34.0 [facility] Comment on above: Order Comment: Speci men Type: BLOOD SPECIMENOrdering Facility: [facility] Address: [address] [place] [address] Performed By: #### 5 7021-8 ####[facility] LABCLIA [id number] [place] [address] [place] MCHC (RBC) [Mass/Vol] 32.4 g/dL Normal 30.5-36.0 [facility] Comment on above: Order Comment: Speci men Type: BLOOD SPECIMENOrdering Facility: [facility] Address: [address] [place] [address] Performed By: #### 5 7021-8 ####[facility] LABIA [id number] [place] [address] [place] MCV (RBC) [Entitic vol] 98.3 fL Normal 80.0-100.0 C [facility] Comment on above: Order Comment: Speci men Type: BLOOD SPECIMENOrdering Facility: [facility] Address: [address] [place] [address] Performed By: #### 5 7021-8 ####[facility] LABIA [id number] [place] [address] [place] Monocytes (Bld) [#/Vol] 0.68 10*3/uL Normal <0.87 [facility] Comment on above: Order Comment: Speci men Type: BLOOD SPECIMENOrdering Facility: [facility] Address: [address] [place] [address] Performed By: #### 5 7021-8 ####[facility] LABIA [id number] [place] [address] [place] Monocytes/100 WBC (Bld) 9.5 % Normal C [facility] Comment on above: Order Comment: Speci men Type: BLOOD SPECIMENOrdering Facility: [facility] Address: [address] [place] [address] Performed By: #### 5 7021-8 ####[facility] LABIA [id number] [place] [address] [place] Neutrophils (Bld) [#/Vol] 4.19 10*3/uL Normal 1.45-7.50 [facility] Comment on above: Order Comment: Speci men Type: BLOOD SPECIMENOrdering Facility: [facility] Address: [address] [place] [address] Performed By: #### 5 7021-8 ####[facility] LABCLIA [id number] [place] [address] [place] Neutrophils/100 WBC (Bld) 58.3 % Normal [facility] Comment on above: Order Comment: Speci men Type: BLOOD SPECIMENOrdering Facility: [facility] Address: [address] [place] [address] Performed By: #### 5 7021-8 ####[facility] LABCLIA [id number] [place] [address] [place] Nucleated RBC (Bld) [#/Vol] 10*3/uL Normal <0.01 [facility] Comment on above: Order Comment: Speci men Type: BLOOD SPECIMENOrdering Facility: [facility] Address: [address] [place] [address] Performed By: #### 5 7021-8 ####[facility] LABCLIA [id number] [place] [address] [place] Nucleated RBC/100 WBC (Bld) [Ratio] 0.0 /100 WBC Normal [facility] Comment on above: Order Comment: Speci men Type: BLOOD SPECIMENOrdering Facility: [facility] Address: [address] [place] [address] Performed By: #### 5 7021-8 ####[facility] LABCLIA [id number] [place] [address] [place] Platelet mean volume (Bld) [Entitic vol] 10.4 fL Normal 9.0-12.7 [facility] Comment on above: Order Comment: Speci men Type: BLOOD SPECIMENOrdering Facility: [facility] Address: [address] [place] [address] Performed By: #### 5 7021-8 ####[facility] LABCLIA [id number] [place] [address] [place] Platelets (Bld) [#/Vol] 194 10*3/uL Normal 150-400 [facility] Comment on above: Order Comment: Speci men Type: BLOOD SPECIMENOrdering Facility: [facility] Address: [address] [place] [address] Performed By: #### 5 7021-8 ####[facility] LABIA [id number] [place] [address] [place] RBC (Bld) [#/Vol] 4.11 10*6/uL Normal 3.90-5.20 [facility] Comment on above: Order Comment: Speci men Type: BLOOD SPECIMENOrdering Facility: [facility] Address: [address] [place] [address] Performed By: #### 5 7021-8 ####[facility] LABIA [id number] [place] [address] [place] WBC (Bld) [#/Vol] 7.18 10*3/uL Normal 3.70-11.00 [facility] Comment on above: Order Comment: Speci men Type: BLOOD SPECIMENOrdering Facility: [facility] Address: [address] [place] [address] Performed By: #### 5 7021-8 ####[facility] LABIA [id number] [place] [address] [place] CONSULT PROGon 10-17-2023 CONSULT PROG HNO ID: [id number] Author: BENNY STINSON RPh Service: Pharmacy Author [...] indication Empiric Pharmacist may modify dose per [facility] dose optimization consult agreement Yes 10/17/23 1300 For medications which dose is dependent on renal function, a pharmacist will monitor renal function daily and adjust doses accordingly. Any dose adjustments needed based on changes in indication will require an LIP to enter a new order. Managing Pharmacist: Benny Stinson RPh, available at: [phone] If you have any questions, please contact Pharmacy at [phone]. Estimated Creatinine Clearance: 15.1 mL/min (A) (based [...] Temp: 36.6 ?C (97.9 ?F) Benny Stinson RPh October 17, 2023 3:17 PM Normal [facility] HISTORY PHYSICALon 4 HISTORY PHYSICAL HNO ID: [id number] Author: RICCO GARLAND MD Service: Urology Author [...] Dr. Dada Thomas MD Resident PGY-2 Urology [facility] [place] [facility] Pager [phone] For weekend or after hours issues [place] [phone] 11:03 AM 10/17/2023 ASHLEY Nolan is a 88 year old female [...] oriented x 3. IMAGING: Reviewed CT Emmanuel Martha, MD October 17, 2023 11:03 AM Ricco Garland MD, FACS Director, Surgical Stone Disease, [facility] Urologic [place] vessel operator, [facility] Pager [phone] 10/17/2023 Normal [facility] PT panel Coag (PPP)on 2023 INR Coag (PPP) [Relative time] 1.0 {INR} Normal 0.9-1.3 [facility] Comment on above: Order Comment: Speci men Type: BLOOD SPECIMENOrdering Facility: [facility] Address: [address] [place] [address] Result Comment: Kristen min K Antagonist (VKA) Therapeutic Range: INR 2 to 3 (Target INR of 2.5) Note: For patients treated with VKA drugs, such as warfarin, the [place] [employer] 2012 Guideline recommends [...] Chest 2012, 141:7S-47S Shital RA, et al. [facility] 2017, 70: 252-289 Performed By: #### 3 4528-0 ####[facility] LABCLIA [id number] [facility] [id number] [address] [place] PT Coag (PPP) [Time] 11.1 s Normal 9.7-13.0 [facility] Comment on above: Order Comment: Speci men Type: BLOOD SPECIMENOrdering Facility: [facility] Address: [address] [place] [address] Performed By: #### 3 4528-0 ####[facility] LABCLIA [id number] [address] [address] [facility] [place] Jenaro 10-06-2023 CNPN Telephone (UROLMN) JESÚS NOLAN ([id number]) 1935 F Date Time Provider Department 10/06/23 LETY GARCIA During your visit today, we recorded the following information about you: Lety Garcia RN 10/06/2023 12:04 PM Signed ----- Message from Fanny Nagel Escalator Operator II sent at 10/06/2023 10:22 AM EST ----- Regarding: discuss abx for UTI prior to surgery Contact: Md! Pt's daughter, Maranda, has a few questions and would like to discuss abx for UTI prior to surgery w/ Dr. Garland on 10/18 if someone could please reach out to her when possible. Thanks so much, Lety Alvarado RN 10/06/2023 12:18 PM Signed Returned call to speak with daughter. Daughter explained that patient had new urine done this week with her [facility] nephrology team, showing a UTI. They wanted [...] Date Reviewed: 09/23/2023 Reviewed by: Stefanie Ocampo APRN.FENCE SETTER, DNP - Fully Assessed Reason for Visit: [...] Encounter Status:Closed by LETY GARCIA on 10/07/23 [facility] CNPNon 09-29-2023 CNPN Telephone (UROLMN) JESÚS NOLAN ([id number]) 1935 F Date Time Provider Department 09/29/23 MONI CHAUDHARI During your visit today, we recorded the following information about you: Moni Chaudhari RN 09/29/2023 8:26 AM Signed Called patient to inform her of the following information below per Dr. Garland regarding her antibiotic. No answer, [facility] with phone number to return call. Moni [...] Informed her that this was sent to [facility] in [place] and patient should be sure to begin about 1 week prior and no sooner as it would select for resistant bacteria. Patients daughter voiced understanding. Provided office number if questions arise. Moni Chaudhari RN October 01, 2023 9:29 AM Allergies As of Date: 09/29/2023 (No Known Allergies) Date Reviewed: 09/23/2023 Reviewed by: Stefanie Ocampo APRN.FENCE SETTER, DNP - Fully Assessed Reason for Visit: [...] Status:Closed by MONI CHAUDHARI on 09/29/23 Normal [facility] Bacteria Ur Culton 3 Bacteria [...] , Intermediate >32 , Resistant >64 Abnormal [facility] Comment on above: Performed By: #### 6 30-4 ####[facility] LABCLIA [id number] [place] [address] [place] CBC W Auto Differential pane l (Bld)on 09-23-2023 Basophils (Bld) [#/Vol] 10*3/uL Normal <0.11 C [facility] Comment on above: Order Comment: Speci men Type: BLOOD SPECIMENOrdering Facility: [facility] Address: [address] [place] [address] Performed By: #### 5 7021-8 ####[facility] LABCLIA [id number] [place] [address] [place] Basophils/100 WBC (Bld) 0.3 % Normal [facility] Comment on above: Order Comment: Speci men Type: BLOOD SPECIMENOrdering Facility: [facility] Address: [address] [place] [address] Performed By: #### 5 7021-8 ####[facility] LABCLIA [id number] [place] [address] [place] Differential cell count method Nom (Bld) Auto Normal [facility] Comment on above: Order Comment: Speci men Type: BLOOD SPECIMENOrdering Facility: [facility] Address: [address] [place] [address] Performed By: #### 5 7021-8 ####[facility] LABCLIA [id number] [place] [address] [place] Eosinophils (Bld) [#/Vol] 0.16 10*3/uL Normal <0.46 [facility] Comment on above: Order Comment: Speci men Type: BLOOD SPECIMENOrdering Facility: [facility] Address: [address] [place] [address] Performed By: #### 5 7021-8 ####[facility] LABCLIA [id number] [address] [place] Eosinophils/100 WBC (Bld) 2.2 % Normal [facility] Comment on above: Order Comment: Speci men Type: BLOOD SPECIMENOrdering Facility: [facility] Address: [address] [place] [address] Performed By: #### 5 7021-8 ####[facility] LABCLIA [id number] [place] [address] [place] Erythrocyte distribution width (RBC) [Ratio] 14.0 % Normal 11.5-15.0 [facility] Comment on above: Order Comment: Speci men Type: BLOOD SPECIMENOrdering Facility: [facility] Address: [address] [place] [address] Performed By: #### 5 7021-8 ####[facility] LABCLIA [id number] [place] [address] [place] Hematocrit (Bld) [Volume fraction] 39.8 % Normal 36.0-46.0 [facility] Comment on above: Order Comment: Speci men Type: BLOOD SPECIMENOrdering Facility: [facility] Address: [address] [place] [address] Performed By: #### 5 7021-8 ####[facility] LABCLIA [id number] [place] [address] [place] Hemoglobin (Bld) [Mass/Vol] 12.6 g/dL Normal 11.5-15.5 [facility] Comment on above: Order Comment: Speci men Type: BLOOD SPECIMENOrdering Facility: [facility] Address: [address] [place] [address] Performed By: #### 5 7021-8 ####[facility] LABIA [id number] [place] [address] [place] Immature granulocytes (Bld) [#/Vol] 10*3/uL Normal <0.10 [facility] Comment on above: Order Comment: Speci men Type: BLOOD SPECIMENOrdering Facility: [facility] Address: [address] [place] [address] Performed By: #### 5 7021-8 ####[facility] LABIA [id number] [place] [address] [place] Immature granulocytes/100 WBC (Bld) 0.1 % Normal [facility] Comment on above: Order Comment: Speci men Type: BLOOD SPECIMENOrdering Facility: [facility] Address: [address] [place] [address] Performed By: #### 5 7021-8 ####[facility] LABCLIA [id number] [place] [address] [place] Lymphocytes (Bld) [#/Vol] 2.33 10*3/uL Normal 1.00-4.00 [facility] Comment on above: Order Comment: Speci men Type: BLOOD SPECIMENOrdering Facility: [facility] Address: [address] [place] [address] Performed By: #### 5 7021-8 ####[facility] LABCLIA [id number] [place] [address] [place] Lymphocytes/100 WBC (Bld) 31.4 % Normal [facility] Comment on above: Order Comment: Speci men Type: BLOOD SPECIMENOrdering Facility: [facility] Address: [address] [place] [address] Performed By: #### 5 7021-8 ####[facility] LABCLIA [id number] [place] [address] [place] MCH (RBC) [Entitic mass] 31.7 pg Normal 26.0-34.0 [facility] Comment on above: Order Comment: Speci men Type: BLOOD SPECIMENOrdering Facility: [facility] Address: [address] [place] [address] Performed By: #### 5 7021-8 ####[facility] LABCLIA [id number] [place] [address] [place] MCHC (RBC) [Mass/Vol] 31.7 g/dL Normal 30.5-36.0 [facility] Comment on above: Order Comment: Speci men Type: BLOOD SPECIMENOrdering Facility: [facility] Address: [address] [place] [address] Performed By: #### 5 7021-8 ####[facility] LABCLIA [id number] [place] [address] [place] MCV (RBC) [Entitic vol] 100.3 fL High 80.0-100.0 C [facility] Comment on above: Order Comment: Speci men Type: BLOOD SPECIMENOrdering Facility: [facility] Address: [address] [place] [address] Performed By: #### 5 7021-8 ####[facility] LABCLIA [id number] [place] [address] [place] Monocytes (Bld) [#/Vol] 0.77 10*3/uL Normal <0.87 [facility] Comment on above: Order Comment: Speci men Type: BLOOD SPECIMENOrdering Facility: [facility] Address: [address] [place] [address] Performed By: #### 5 7021-8 ####[facility] LABCLIA [id number] [place] [address] [place] Monocytes/100 WBC (Bld) 10.4 % Normal C [facility] Comment on above: Order Comment: Speci men Type: BLOOD SPECIMENOrdering Facility: [facility] Address: [address] [place] [address] Performed By: #### 5 7021-8 ####[facility] LABCLIA [id number] [place] [address] [place] Neutrophils (Bld) [#/Vol] 4.14 10*3/uL Normal 1.45-7.50 [facility] Comment on above: Order Comment: Speci men Type: BLOOD SPECIMENOrdering Facility: [facility] Address: [address] [place] [address] Performed By: #### 5 7021-8 ####[facility] LABCLIA [id number] [place] [address] [place] Neutrophils/100 WBC (Bld) 55.6 % Normal [facility] Comment on above: Order Comment: Speci men Type: BLOOD SPECIMENOrdering Facility: [facility] Address: [address] [place] [address] Performed By: #### 5 7021-8 ####[facility] LABIA [id number] [place] [address] [place] Nucleated RBC (Bld) [#/Vol] 10*3/uL Normal <0.01 [facility] Comment on above: Order Comment: Speci men Type: BLOOD SPECIMENOrdering Facility: [facility] Address: [address] [place] [address] Performed By: #### 5 7021-8 ####[facility] LABIA [id number] [place] [address] [place] Nucleated RBC/100 WBC (Bld) [Ratio] 0.0 /100 WBC Normal [facility] Comment on above: Order Comment: Speci men Type: BLOOD SPECIMENOrdering Facility: [facility] Address: [address] [place] [address] Performed By: #### 5 7021-8 ####[facility] LABIA [id number] [place] [address] [place] Platelet mean volume (Bld) [Entitic vol] 10.3 fL Normal 9.0-12.7 [facility] Comment on above: Order Comment: Speci men Type: BLOOD SPECIMENOrdering Facility: [facility] Address: [address] [place] [address] Performed By: #### 5 7021-8 ####[facility] LABIA [id number] [place] [address] [place] Platelets (Bld) [#/Vol] 228 10*3/uL Normal 150-400 [facility] Comment on above: Order Comment: Speci men Type: BLOOD SPECIMENOrdering Facility: [facility] Address: [address] [place] [address] Performed By: #### 5 7021-8 ####[facility] LABIA [id number] [place] [address] [place] RBC (Bld) [#/Vol] 3.97 10*6/uL Normal 3.90-5.20 [facility] Comment on above: Order Comment: Speci men Type: BLOOD SPECIMENOrdering Facility: [facility] Address: [address] [place] [address] Performed By: #### 5 7021-8 ####[facility] LABCLIA [id number] [place] [address] [place] WBC (Bld) [#/Vol] 7.43 10*3/uL Normal 3.70-11.00 [facility] Comment on above: Order Comment: Speci men Type: BLOOD SPECIMENOrdering Facility: [facility] Address: [address] [place] [address] Performed By: #### 5 7021-8 ####[facility] LABCLIA [id number] [address] STATES OF [facility] BLOOD TYPEon 023 ABO A Normal [facility] Comment on above: Order Comment: Speci men Type: BLOOD SPECIMENOrdering Facility: [facility] Address: [address] [place] [address] Performed By: #### C ONABO ####[facility] BLOOD BANKCLIA [id number] [place] [address] [place] Rh Nom (Bld) Positive Normal [facility] Comment on above: Order Comment: Speci men Type: BLOOD SPECIMENOrdering Facility: [facility] Address: [address] [place] [address] Performed By: #### C ONABO ####[facility] BLOOD BANKCLIA [id number] [place] [address] [place] Comprehensive metabolic 2000 panelon 09-23-2023 Albumin [Mass/Vol] 4.3 g/dL Normal 3.9-4.9 [facility] Comment on above: Order Comment: Speci men Type: BLOOD SPECIMENOrdering Facility: [facility] Address: [address] [place] [address] Performed By: #### 2 4323-8 ####[facility] LABCLIA [id number] [place] [address] [place] ALP [Catalytic activity/Vol] 96 U/L Normal 34-123 [facility] Comment on above: Order Comment: Speci men Type: BLOOD SPECIMENOrdering Facility: [facility] Address: [address] [place] [address] Performed By: #### 2 4323-8 ####[facility] LABCLIA [id number] [place] [address] [place] ALT [Catalytic activity/Vol] 17 U/L Normal 7-38 [facility] Comment on above: Order Comment: Speci men Type: BLOOD SPECIMENOrdering Facility: [facility] Address: [address] [place] [address] Performed By: #### 2 4323-8 ####[facility] LABCLIA [id number] [place] [address] [place] Anion gap [Moles/Vol] 15 mmol/L Normal 9-18 [facility] Comment on above: Order Comment: Speci men Type: BLOOD SPECIMENOrdering Facility: [facility] Address: [address] [place] [address] Performed By: #### 2 4323-8 ####[facility] LABCLIA [id number] [place] [address] [place] AST [Catalytic activity/Vol] 22 U/L Normal 13-35 [facility] Comment on above: Order Comment: Speci men Type: BLOOD SPECIMENOrdering Facility: [facility] Address: [address] [place] [address] Performed By: #### 2 4323-8 ####[facility] LABCLIA [id number] [place] [address] [place] Bilirubin [Mass/Vol] 0.3 mg/dL Normal 0.2-1.3 [facility] Comment on above: Order Comment: Speci men Type: BLOOD SPECIMENOrdering Facility: [facility] Address: [address] [place] [address] Performed By: #### 2 4323-8 ####[facility] LABCLIA [id number] [place] [address] [place] Calcium [Mass/Vol] 9.4 mg/dL Normal 8.5-10.2 [facility] Comment on above: Order Comment: Speci men Type: BLOOD SPECIMENOrdering Facility: [facility] Address: [address] [place] [address] Performed By: #### 2 4323-8 ####[facility] LABCLIA [id number] [place] [address] [place] Chloride [Moles/Vol] 103 mmol/L Normal 97-105 [facility] Comment on above: Order Comment: Speci men Type: BLOOD SPECIMENOrdering Facility: [facility] Address: [address] [place] [address] Performed By: #### 2 4323-8 ####[facility] LABCLIA [id number] [place] [address] [place] CO2 [Moles/Vol] 26 mmol/L Normal 22-30 [facility] Comment on above: Order Comment: Speci men Type: BLOOD SPECIMENOrdering Facility: [facility] Address: [address] [place] [address] Performed By: #### 2 4323-8 ####[facility] LABCLIA [id number] [place] [address] [place] Creatinine [Mass/Vol] 2.05 mg/dL High 0.58-0.96 [facility] Comment on above: Order Comment: Speci men Type: BLOOD SPECIMENOrdering Facility: [facility] Address: [address] [place] [address] Performed By: #### 2 4323-8 ####[facility] LABCLIA [id number] [place] [address] [place] Creatinine and Glomerular filtration rate.predicted panel (S/P/Bld) 23 mL/min/1.73m??? Low >=60 [facility] Comment on above: Order Comment: Speci men Type: BLOOD SPECIMENOrdering Facility: [facility] Address: [address] [place] [address] Result Comment: Melissa mated Glomerular Filtration Rate [...] #### 2 4323-8 ####[facility] LABIA [id number] [place] [address] [place] Glucose [Mass/Vol] 107 mg/dL High 74-99 [facility] Comment on above: Order Comment: Speci men Type: BLOOD SPECIMENOrdering Facility: [facility] Address: [address] [place] [address] Result Comment: The [place] Diabetes Association (ADA) provides guidance for cutoff [...] Standards of Medical Care in Diabetes 2016, [place] [employer]. Diabetes Care. 2016.39(Suppl 1). Performed By: #### 2 4323-8 ####[facility] LABCLIA [id number] [place] [address] [place] Potassium [Moles/Vol] 4.0 mmol/L Normal 3.7-5.1 [facility] Comment on above: Order Comment: Speci men Type: BLOOD SPECIMENOrdering Facility: [facility] Address: [address] [place] [address] Performed By: #### 2 4323-8 ####[facility] LABCLIA [id number] [place] [address] [place] Protein [Mass/Vol] 7.0 g/dL Normal 6.3-8.0 [facility] Comment on above: Order Comment: Speci men Type: BLOOD SPECIMENOrdering Facility: [facility] Address: [address] [place] [address] Performed By: #### 2 4323-8 ####[facility] LABIA [id number] [place] [address] [place] Sodium [Moles/Vol] 144 mmol/L Normal 136-144 [facility] Comment on above: Order Comment: Speci men Type: BLOOD SPECIMENOrdering Facility: [facility] Address: [address] [place] [address] Performed By: #### 2 4323-8 ####[facility] LABIA [id number] [place] [address] [place] Urea nitrogen [Mass/Vol] 30 mg/dL High 7-21 [facility] Comment on above: Order Comment: Speci men Type: BLOOD SPECIMENOrdering Facility: [facility] Address: [address] [place] [address] Performed By: #### 2 4323-8 ####[facility] LABIA [id number] [place] [address] [place] ECG COMPLETEon 09-23-2023 ECG COMPLETE Ventricular Rate : 6 2 BPM Atrial Rate : 62 BPM P-R Interval : 202 ms QRS Duration : 90 ms Q-T Interval : 424 ms QTC Calculation(Bazett) : 430 ms Calculated P Pollok : 100 degrees Calculated R Pollok : -29 degrees Calculated T Pollok : 17 degrees NORMAL SINUS RHYTHM LEFT VENTRICULAR HYPERTROPHY POSSIBLE ANTEROSEPTAL MYOCARDIAL INFARCTION , 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 ECG Confirmed by MITZI PACHECO MD ([id number]) on 10/13/2023 8:12:00 AM NAME : JESÚS NOLAN PID : [id number] : 1935 Gender : Female Race : ORD : [id number] Procedure Date : Sep 23 2023 15:23:33 [...] OCAMPO Acquired by : VERONIKA CONWAY Normal [facility] ECG COMPLETE Ventricular Rate : 7 5 BPM Atrial Rate : 75 BPM QRS Duration : 108 ms Q-T Interval : 410 ms QTC Calculation(Bazett) : 457 ms Calculated R Pollok : -32 degrees Calculated T Pollok : 97 degrees 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 , 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 ECG Reconfirmed by KIAN CLARK MD ([id number]) on 09/23/2023 8:45:27 PM NAME : JESÚS NOLAN PID : [id number] : 1935 Gender : Female Race : ORD : [id number] Procedure Date : Sep 23 2023 12:56:29 Edit Date : Sep 23 2023 20:45:28 Diagnosis: 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 , 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 Author Type: Nurse Practitioner [...] 35 kg/m2 Non-male patient STOP-Bang Score: 1 [id number] Score: Hypertension history: Yes [id number]-DETs Score: 1 ARISCAT Score: Age: >80 Preoperative [...] fevers. Neurological: No history of TIA's, stroke, SEXER tumor, impaired sensorium, hemiplegia, paraplegia or quadraplegia. No neurological symptoms or problems. Respiratory: No history of current cough or dyspnea, or pneumonia in the past 6 weeks. No history of respiratory/pulmonary symptoms or problems. Cardiovascular: Positive for: hypertension (on rx) Negative for: abdominal aortic aneurysm, AICD/PPM, anticoagulation (more content not included)... Normal [facility] TYPE AND SCREEN,30 DAYon ABO A Normal [facility] Comment on above: Order Comment: Speci men Type: BLOOD SPECIMENOrdering Facility: [facility] Address: [address] [place] [address] Performed By: #### T SCR30 ####[facility] BLOOD BANKCLIA [id number] [address] [place] HISTORICAL AB SCR STATUS Negative Normal [facility] Comment on above: Order Comment: Speci men Type: BLOOD SPECIMENOrdering Facility: [facility] Address: [address] [place] [address] Performed By: #### T SCR30 ####[facility] BLOOD BANKIA [id number] [place] [address] [place] Rh Nom (Bld) Positive Normal [facility] Comment on above: Order Comment: Speci men Type: BLOOD SPECIMENOrdering Facility: [facility] Address: [address] [place] [address] Performed By: #### T SCR30 ####[facility] BLOOD BANKCLIA [id number] [place] [address] [place] Consultation Noteon 09-12-20 23 Consultation Note [id number]#1.0 [id number] Normal [facility] Bacteria Ur Culton 3 Bacteria identified Cx Nom (U) CULTURE, URINE: No growth (<1,000 CFU/ml) Normal [facility] Comment on above: Performed By: #### 6 30-4 ####[facility] LABCLIA [id number] [place] [id number] [place] CNOVon 09-07-2023 CNOV Office Visit (UROLMN ) JESÚS NOLAN ([id number]) 1935 F Date Time Provider Department 09/07/23 10:00 AM [facility] UROLUCIANA During your visit today, we recorded [...] hardly hear me. Though not listed in [facility], patient's daughter indicates Dr. Harsh [...] based on size, location, hounsfield units and hsoi-hm-xeidk distance: 0% 3. Ureteroscopy - risks of [...] with more than 50% of the total otin-ll-vzvi time of the visit devoted to patient counseling/coordinatio n of care. Ricco Garland MD, FACS Director, Surgical Stone Disease, [facility] [place] vessel operator, [facility] Pager [phone] 09/07/2023 Referring Provider: SELF [200] Allergies As of Date: 09/07/2023 (No Known Allergies) Date Reviewed: 09/07/2023 Reviewed by: Karen Calvillo OCCA - Fully Assessed Primary Visit Diagnosis:Staghorn calculus [N20.0] Other Visit Diagnoses:Abnormal urinalysis [R82.90] History of recurrent UTIs [Z87.440] Essential hypertension [I10] Constipation, unspecified constipation type [K59.00] Arthritis [M19.90] Status post hip surgery [Z98.890] Order(s):URINE CULTURE [SQURCUL] Order #: [id number]. #:[id number] estradiol (ESTRACE) 0.01 % (0.1 mg/gram) vaginal creamUse 1 g vaginally one time a week.Disp: 42 gRfl: 1 Prescriptions (more content not included)... Normal [facility] URINALYSIS, REFLEX MICROSCOP ICon 09-07-2023 Bacteria LM.HPF (Urine sed) [#/Area] Few Abnormal None Seen [facility] Comment on above: Order Comment: Speci men Type: URINE SPECIMENOrdering Facility: [facility] Address: [address] [place] [address] Performed By: #### L [id number] ####[facility] LABCLIA [id number] [place] [address] [place] Bilirubin Ql (U) Negative Normal Negative Demond [facility] Comment on above: Order Comment: Speci men Type: URINE SPECIMENOrdering Facility: [facility] Address: [address] [place] [address] Performed By: #### L [id number] ####[facility] LABCLIA [id number] [place] [address] [place] Clarity (Unsp spec) Clear Normal Clear [facility] Comment on above: Order Comment: Speci men Type: URINE SPECIMENOrdering Facility: [facility] Address: [address] [place] [address] Performed By: #### L [id number] ####[facility] LABCLIA [id number] [place] [address] [place] Color (U) Light Yellow Normal Yellow [facility] Comment on above: Order Comment: Speci men Type: URINE SPECIMENOrdering Facility: [facility] Address: [address] [place] [address] Performed By: #### L [id number] ####[facility] LABCLIA [id number] [place] [address] [place] Epithelial cells LM.HPF (Urine sed) [#/Area] Few Normal [facility] Comment on above: Order Comment: Speci men Type: URINE SPECIMENOrdering Facility: [facility] Address: [address] [place] [address] Performed By: #### L [id number] ####[facility] LABCLIA [id number] [place] [address] [place] Glucose Test strip (U) [Mass/Vol] Negative Normal Trace, Negative [facility] Comment on above: Order Comment: Speci men Type: URINE SPECIMENOrdering Facility: [facility] Address: [address] [place] [address] Performed By: #### L [id number] ####[facility] LABCLIA [id number] [place] [address] [place] Hemoglobin Ql (U) Negative Normal Negative, Trace [facility] Comment on above: Order Comment: Speci men Type: URINE SPECIMENOrdering Facility: [facility] Address: [address] [place] [address] Performed By: #### L [id number] ####[facility] LABCLIA [id number] [place] [address] [place] Hyaline casts (Urine sed) [#/Area] 1-3 /LPF Abnormal 0 /LPF [facility] Comment on above: Order Comment: Speci men Type: URINE SPECIMENOrdering Facility: [facility] Address: [address] [place] [address] Performed By: #### L [id number] ####[facility] LABCLIA [id number] [place] [address] [place] Ketones Ql (U) Negative Normal Negative, Trace [facility] Comment on above: Order Comment: Speci men Type: URINE SPECIMENOrdering Facility: [facility] Address: [address] [place] [address] Performed By: #### L [id number] ####[facility] LABCLIA [id number] [place] [address] [place] Leukocyte esterase Test strip Ql (U) 500 Dorian/uL Abnormal Negative, 25 Dorian/uL [facility] Comment on above: Order Comment: Speci men Type: URINE SPECIMENOrdering Facility: [facility] Address: [address] [place] [address] Performed By: #### L [id number] ####[facility] LABCLIA [id number] [place] [address] [place] Nitrite Ql (U) Negative Normal Negative [facility] Comment on above: Order Comment: Speci men Type: URINE SPECIMENOrdering Facility: [facility] Address: [address] [place] [address] Performed By: #### L [id number] ####[facility] LABCLIA [id number] [place] [address] [place] pH (U) 5.5 [pH] Normal 5.0-8.0 [facility] Comment on above: Order Comment: Speci men Type: URINE SPECIMENOrdering Facility: [facility] Address: [address] [place] [address] Performed By: #### L [id number] ####[facility] LABCLIA [id number] [place] [address] [place] Protein (U) [Mass/Vol] Trace Normal Trace , Negative [facility] Comment on above: Order Comment: Speci men Type: URINE SPECIMENOrdering Facility: [facility] Address: [address] [place] [address] Performed By: #### L [id number] ####[facility] LABIA [id number] [place] [address] [place] RBC LM.HPF (Urine sed) [#/Area] 3-5 /HPF Abnormal 0-3 /HPF [facility] Comment on above: Order Comment: Speci men Type: URINE SPECIMENOrdering Facility: [facility] Address: [address] [place] [address] Performed By: #### L [id number] ####[facility] LABIA [id number] [place] [address] [place] Specific gravity (U) [Rel density] 1.014 Normal 1.005-1.030 [facility] Comment on above: Order Comment: Speci men Type: URINE SPECIMENOrdering Facility: [facility] Address: [address] [place] [address] Performed By: #### L [id number] ####[facility] LABIA [id number] [place] [address] [place] Urobilinogen Ql (U) Negative Normal Negative [facility] Comment on above: Order Comment: Speci men Type: URINE SPECIMENOrdering Facility: [facility] Address: [address] [place] [address] Performed By: #### L [id number] ####[facility] LABIA [id number] [place] [address] [place] WBC LM.HPF (Urine sed) [#/Area] /[HPF] Abnormal 0-5 /HPF [facility] Comment on above: Order Comment: Speci men Type: URINE SPECIMENOrdering Facility: [facility] Address: [address] [place] [address] Performed By: #### L [id number] ####[facility] LABCLIA [id number] [address] [address] [place] Consultation Noteon 09-06-20 Consultation Note [id number]#1.0 0TIFF Normal [facility] Consultation Noteon 09-03-20 Consultation Note [id number]#1.0 0TIFF Normal [facility] Lab Reportson 09-03-2023 Lab Reports [id number]#1.0 0TIFF Normal [facility] Basic Metabolic Panelon Anion gap [Moles/Vol] 11.2 mmol/L Normal 6.0-15.0 [facility] Comment on above: Performed By: #### EDITA Warren, CBCNO ####[facility] [id number] [place] [address] [facility] Calcium [Mass/Vol] 8.0 mg/dL Low 8.6-10.3 [facility] Comment on above: Performed By: #### EDITA Warren, CBCNO ####[facility] [id number] [place] [address] [facility] Chloride [Moles/Vol] 110 mmol/L High 98-107 [facility] Comment on above: Performed By: #### EDITA Warren, CBCNO ####[facility] Sin3794 [place] [address] [facility] CO2 [Moles/Vol] 25.2 mmol/L Normal 21.0-31.0 [facility] Comment on above: Performed By: #### EDITA Warren, CBCNO ####[facility] [id number] [place] [address] [place] Creatinine [Mass/Vol] 2.30 mg/dL High 0.60-1.20 [facility] Comment on above: Performed By: #### EDITA Warren, CBCNO ####[facility] Res[address]757 [place] [address] [facility] Creatinine Clr Calc Pharmacy 14.54 [facility] Comment on above: Performed By: #### EDITA Warren, CBCNO ####[place] [address] [place] [id number] [facility] GFR/1.73 sq M.predicted MDRD (S/P/Bld) [Vol rate/Area] 20.194 mL/min/{1.73_m2} [facility] Comment on above: Performed By: #### EDITA Warren CBCNO ####[place] [address] Glucose [Mass/Vol] 109 mg/dL High 70-100 [facility] Comment on above: Result Comment: [place] Glucose Reference Range is dependent on time and content of last meal. Glucose of more than 200 mg/dL in a nonstressed, ambulatory subject supports the diagnosis of Diabetes Mellitus. ADA recommended reference range Performed By: #### EDITA Warren, CBCNO ####[place] [address] [place] [address] [facility] Potassium [Moles/Vol] 4.4 mmol/L Normal 3.5-5.1 [facility] Comment on above: Performed By: #### EDITA Warren, CBCNO ####[place] [address] [place] [address] [facility] Sodium [Moles/Vol] 142 mmol/L Normal 136-145 [facility] Comment on above: Performed By: #### EDITA Warren, CBCNO ####[place] [address] [place] [address] [facility] Urea nitrogen [Mass/Vol] 31 mg/dL High 7-25 [facility] Comment on above: Performed By: #### EDITA Warren, CBCNO ####[facility] [place] [address] [facility] Hemogram CBC Without Diffon 12-07-2023 Erythrocyte distribution width (RBC) [Ratio] 14.1 % Normal 11.9-15.3 [facility] Comment on above: Performed By: #### EDITA Warren CBCNO ####[address] Hematocrit (Bld) [Volume fraction] 32.6 % Low 34.0-46.4 [facility] Comment on above: Performed By: #### EDITA Warren CBCNO ####[address] Hemoglobin (Bld) [Mass/Vol] 10.9 g/dL Low 11.8-15.4 [facility] Comment on above: Performed By: #### EDITA Warren CBCNO ####[address] MCH (RBC) [Entitic mass] 31.6 pg Normal 24.7-34.3 [facility] Comment on above: Performed By: #### EDITA Warren CBCNO ####[address] MCV (RBC) [Entitic vol] 94.7 fL Normal 80-100 F [facility] Comment on above: Performed By: #### EDITA Warren CBCNO ####[address] Mean Corpuscular HGB Conc 33.4 g/dL Normal 32.0-35.0 [facility] Comment on above: Performed By: #### EDITA Warren, CBCNO ####[address] Platelet mean volume (Bld) [Entitic vol] 8.8 fL Normal 6.3-10.7 [facility] Comment on above: Result Comment: PERF ORMED BY: [facility] [address] [place] [address] PATHOLOGIST HOME HEALTH SCHEDULER BARBARA MUNOZ M.D. Performed By: #### EDITA Warren, CBCNO ####[place] [address] [place] Platelets (Bld) [#/Vol] 192 10*3/uL Normal 150-450 [facility] Comment on above: Performed By: #### EDITA Warren, CBCNO ####[place] [address] RBC (Bld) [#/Vol] 3.44 10*6/uL Low 3.60-5.00 [facility] Comment on above: Performed By: #### EDITA Warren, CBCNO ####[place] [address] WBC (Bld) [#/Vol] 7.8 10*3/uL Normal 3.8-11.6 [facility] Comment on above: Performed By: #### EDITA Warren, CBCNO ####[address] Magnesiumon 09-02-2023 Magnesium [Mass/Vol] 2.5 mg/dL Normal 1.9-2.7 [facility] Comment on above: Result Comment: PERF ORMED BY: [facility] [address] [place] [address] PATHOLOGIST HOME HEALTH SCHEDULER BARBARA MUNOZ M.D. Performed By: #### EDITA Warren, CBCNO ####[place] [id number] [facility] Ammoniaon 09-01-2023 Ammonia (P) [Moles/Vol] 23 umol/L Normal 11-35 [facility] Comment on above: Result Comment: PERF ORMED BY: [facility] [address] [place] [address] PATHOLOGIST HOME HEALTH SCHEDULER BARBARA MUNOZ M.D. Performed By: #### A MM ####[address] Basic Metabolic Panelon 12-0 Anion gap [Moles/Vol] 11.9 mmol/L Normal 6.0-15.0 [facility] Comment on above: Performed By: #### V [id number], MG, CBC, BMP, TSH3 ####[place] [id number] [facility] Calcium [Mass/Vol] 8.4 mg/dL Low 8.6-10.3 [facility] Comment on above: Performed By: #### V [id number], MG, CBC, BMP, TSH3 ####[place] [id number] [facility] Chloride [Moles/Vol] 111 mmol/L High 98-107 [facility] Comment on above: Performed By: #### V [id number], MG, CBC, BMP, TSH3 ####[place] [id number] [facility] CO2 [Moles/Vol] 23.2 mmol/L Normal 21.0-31.0 [facility] Comment on above: Performed By: #### V [id number], MG, CBC, BMP, TSH3 ####[place] [id number] [facility] Creatinine [Mass/Vol] 2.45 mg/dL High 0.60-1.20 [facility] Comment on above: Performed By: #### V [id number], MG, CBC, BMP, TSH3 ####[place] [id number] [facility] Creatinine Clr Calc Pharmacy 13.65 [facility] Comment on above: Performed By: #### V [id number], MG, CBC, BMP, TSH3 ####[place] [id number] [facility] GFR/1.73 sq M.predicted MDRD (S/P/Bld) [Vol rate/Area] 18.720 mL/min/{1.73_m2} [facility] Comment on above: Performed By: #### V [id number], MG, CBC, BMP, TSH3 ####[place] [id number] [facility] Glucose [Mass/Vol] 90 mg/dL Normal 70-100 [facility] Comment on above: Result Comment: [place] Glucose Reference Range is dependent on time and content of last meal. Glucose of more than 200 mg/dL in a nonstressed, ambulatory subject supports the diagnosis of Diabetes Mellitus. ADA recommended reference range Performed By: #### V [id number], MG, CBC, BMP, TSH3 ####[place] [address] Potassium [Moles/Vol] 4.1 mmol/L Normal 3.5-5.1 [facility] Comment on above: Performed By: #### V [id number], MG, CBC, BMP, TSH3 ####[address] Sodium [Moles/Vol] 142 mmol/L Normal 136-145 [facility] Comment on above: Performed By: #### V [id number], MG, CBC, BMP, TSH3 ####[address] Urea nitrogen [Mass/Vol] 28 mg/dL High 7-25 [facility] Comment on above: Performed By: #### V [id number], MG, CBC, BMP, TSH3 ####[address] Blood Cultureon 09-01-2023 Bacteria identified Cx Nom (Bld) PT IS BEING MEDICATED NO GROWTH 5 DAYS PERFORMED BY: [place] [address] PATHOLOGIST HOME HEALTH SCHEDULER BARBARA MUNOZ M.D. [facility] Comment on above: Performed By: #### L SARANYA FUNESLD #### [facility] [address] [place] [address] Bacteria identified Cx Nom (Bld) PT IS BEING MEDICATED NO GROWTH 5 DAYS PERFORMED BY: [place] [address] PATHOLOGIST HOME HEALTH SCHEDULER BARBARA MUNOZ M.D. [facility] Comment on above: Performed By: #### L JUVENAL FUNES #### [facility] [address] [place] [id number] [facility] CT abdomen pelvis wo conon 1 11-02-2022 CT abdomen pelvis wo con [facility] [place] [address] [place] [id number] Scan Report Signed Patient: Jesús Nolan MR#: [id number] 34 : 1935 Acct:[id number] Age/Sex: 88 / F ADM Date: 08/31/23 Loc: Room: [address] [place] [address] Type: ADM IN Attending Dr: Riky Bundy [...] Isabel Vega M.D.09/01/2023 6:29 AM Dictation Location: [place] [address] Transcribed By: [facility] 09/01/23628 Dictated By: Isabel Vega MD 09/01/23622 Signed By: 09/01/23628 [facility] CT head/brain wo conon 09-01 CT head/brain wo [facility] [place] [address] [place] [address] CT Scan Report Signed Patient: Jesús Nolan MR#: [id number] [birth year] : 1935 Acct:[id number] Age/Sex: 88 / F ADM Date: 08/31/23 Loc: Room: [address] [place] [address] Type: ADM IN Attending Dr: Riky Bundy [...] Isabel Vega M.D.09/01/2023 6:14 AM Dictation Location: [place] [address] Transcribed By: [facility] 09/01/23613 Dictated By: Isabel Vega MD 09/01/23611 Signed By: 09/01/23613 Normal [facility] Complete Blood Count Auto Di ffon 09-01-2023 Basophils (Bld) [#/Vol] 0.0 10*3/uL Normal 0.0-0.2 [facility] Comment on above: Result Comment: PERF ORMED BY: [facility] [address] [facility] [place] [address] PATHOLOGIST HOME HEALTH SCHEDULER BARBARA MUNOZ M.D. Performed By: #### V [id number], MG, CBC, BMP, TSH3 ####[address] Basophils/100 WBC (Bld) 0.3 % Normal . [facility] Comment on above: Performed By: #### V [id number], MG, CBC, BMP, TSH3 ####[address] Eosinophils (Bld) [#/Vol] 0.1 10*3/uL Normal 0.0-0.45 [facility] Comment on above: Performed By: #### V [id number], MG, CBC, BMP, TSH3 ####[address] Eosinophils/100 WBC (Bld) 1.6 % Normal . [facility] Comment on above: Performed By: #### V [id number], MG, CBC, BMP, TSH3 ####[address] Erythrocyte distribution width (RBC) [Ratio] 14.0 % Normal 11.9-15.3 [facility] Comment on above: Performed By: #### V [id number], MG, CBC, BMP, TSH3 ####[address] Hematocrit (Bld) [Volume fraction] 35.9 % Normal 34.0-46.4 [facility] Comment on above: Performed By: #### V [id number], MG, CBC, BMP, TSH3 ####[address] Hemoglobin (Bld) [Mass/Vol] 11.9 g/dL Normal 11.8-15.4 [facility] Comment on above: Performed By: #### V [id number], MG, CBC, BMP, TSH3 ####[address] Lymphocytes (Bld) [#/Vol] 1.5 10*3/uL Normal 1.00-4.8 [facility] Comment on above: Performed By: #### V [id number], MG, CBC, BMP, TSH3 ####[address] Lymphocytes/100 WBC (Bld) 19.5 % Normal . [facility] Comment on above: Performed By: #### V [id number], MG, CBC, BMP, TSH3 ####[address] MCH (RBC) [Entitic mass] 31.2 pg Normal 24.7-34.3 [facility] Comment on above: Performed By: #### V [id number], MG, CBC, BMP, TSH3 ####[address] MCV (RBC) [Entitic vol] 94.6 fL Normal 80-100 F [facility] Comment on above: Performed By: #### V [id number], MG, CBC, BMP, TSH3 ####[address] Mean Corpuscular HGB Conc 33.0 g/dL Normal 32.0-35.0 [facility] Comment on above: Performed By: #### V [id number], MG, CBC, BMP, TSH3 ####[address] Monocytes (Bld) [#/Vol] 1.0 10*3/uL High 0.0-0.8 [facility] Comment on above: Performed By: #### V [id number], MG, CBC, BMP, TSH3 ####[place] [id number] [facility] Monocytes/100 WBC (Bld) 12.4 % Normal . F [facility] Comment on above: Performed By: #### V [id number], MG, CBC, BMP, TSH3 ####[address] Neutrophils (Bld) [#/Vol] 5.2 10*3/uL Normal 1.8-7.7 [facility] Comment on above: Performed By: #### V [id number], MG, CBC, BMP, TSH3 ####[address] Neutrophils/100 WBC (Bld) 66.2 % Normal . [facility] Comment on above: Performed By: #### V [id number], MG, CBC, BMP, TSH3 ####[address] NRBC% 0.0 /100{WBC} Normal 0-0.5 [facility] Comment on above: Performed By: #### V [id number], MG, CBC, BMP, TSH3 ####[place] [id number] [facility] Platelet mean volume (Bld) [Entitic vol] 8.2 fL Normal 6.3-10.7 [facility] Comment on above: Performed By: #### V [id number], MG, CBC, BMP, TSH3 ####[place] [id number] [facility] Platelets (Bld) [#/Vol] 216 10*3/uL Normal 150-450 [facility] Comment on above: Performed By: #### V [id number], MG, CBC, BMP, TSH3 ####[address] RBC (Bld) [#/Vol] 3.80 10*6/uL Normal 3.60-5.00 [facility] Comment on above: Performed By: #### V [id number], MG, CBC, BMP, TSH3 ####[address] WBC (Bld) [#/Vol] 7.8 10*3/uL Normal 3.8-11.6 [facility] Comment on above: Performed By: #### V [id number], MG, CBC, BMP, TSH3 ####[address] Consultation Noteon 09-01-20 23 Consultation Note [id number]#1.0 0TIFF Normal [facility] Dipstick and Microscopicon 1 11-02-2022 Appearance (U) Cloudy Critically abnormal Clear [facility] Comment on above: Order Comment: Name Collection Type:: Voided Performed By: #### C UU, ADDONUAPLUS #### [facility] [address] [place] [address] Bacteria,Urine None Seen Normal None Seen [facility] Comment on above: Order Comment: Name Collection Type:: Voided Result Comment: PERF ORMED BY: [place] [address] PATHOLOGIST HOME HEALTH SCHEDULER BARBARA MUNOZ M.D. Performed By: #### C UU, ADDONUAPLUS #### [address] Bilirubin,Urine Negative Normal Negative [facility] Comment on above: Order Comment: Name Collection Type:: Voided Performed By: #### C UU, ADDONUAPLUS #### [address] Color (U) Yellow Normal Yellow [facility] Comment on above: Order Comment: Name Collection Type:: Voided Performed By: #### C UU, ADDONUAPLUS #### [address] Glucose Ql (U) Normal Normal Normal [facility] Comment on above: Order Comment: Name Collection Type:: Voided Performed By: #### C UU, ADDONUAPLUS #### [address] Ketones Ql (U) Negative Normal Negative [facility] Comment on above: Order Comment: Name Collection Type:: Voided Performed By: #### C UU, ADDONUAPLUS #### [address] Leukocyte esterase Test strip Ql (U) 4+ High Negative [facility] Comment on above: Order Comment: Name Collection Type:: Voided Performed By: #### C UU, ADDONUAPLUS #### [address] Nitrite,Urine Negative Normal Negative [facility] Comment on above: Order Comment: Name Collection Type:: Voided Performed By: #### C UU, ADDONUAPLUS #### [address] Occult Blood,Urine Trace High Negative [facility] Comment on above: Order Comment: Name Collection Type:: Voided Result Comment: PERF ORMED BY: [place] [address] PATHOLOGIST HOME HEALTH SCHEDULER BARBARA MUNOZ M.D. Performed By: #### C UU, ADDONUAPLUS #### [facility] [address] [place] [address] pH (U) 6.0 [pH] Normal 5.0-9.0 [facility] Comment on above: Order Comment: Name Collection Type:: Voided Performed By: #### C UU, ADDONUAPLUS #### [place] [address] [place] Protein (U) [Mass/Vol] 30 mg/dL High Negative [facility] Comment on above: Order Comment: Name Collection Type:: Voided Performed By: #### C UU, ADDONUAPLUS #### [address] RBC,Urine 1-2 Normal 0-4 [facility] Comment on above: Order Comment: Name Collection Type:: Voided Performed By: #### C UU, ADDONUAPLUS #### [address] Specificy [place],Urine 1.016 Normal 1.001-1.030 [facility] Comment on above: Order Comment: Name Collection Type:: Voided Performed By: #### C UU, ADDONUAPLUS #### [address] Squamous Epithelial Cell,Urine 3-4 High 0-2 [facility] Comment on above: Order Comment: Name Collection Type:: Voided Performed By: #### C UU, ADDONUAPLUS #### [address] Urobilinogen,Urine Normal Normal Normal [facility] Comment on above: Order Comment: Name Collection Type:: Voided Performed By: #### C UU, ADDONUAPLUS #### [address] WBC,Urine 50-100 High 0-4 [facility] Comment on above: Order Comment: Name Collection Type:: Voided Performed By: #### C UU, ADDONUAPLUS #### [address] Lactic Acidon 09-01-2023 Lactate [Moles/Vol] 0.8 mmol/L Normal 0.5-2.2 [facility] Comment on above: Order Comment: PT IS BEING MEDICATED Result Comment: PERF ORMED BY: [place] [address] PATHOLOGIST HOME HEALTH SCHEDULER BARBARA MUNOZ M.D. Performed By: #### L ACTIC, CUBLD #### [facility] [address] [place] [address] Magnesiumon 09-01-2023 Magnesium [Mass/Vol] 2.2 mg/dL Normal 1.9-2.7 [facility] Comment on above: Performed By: #### V [id number], MG, CBC, BMP, TSH3 ####[address] Thyroid Stimulating Hormoneo n 09-01-2023 TSH Qn 1.90 m[IU]/L Normal 0.45-5.33 [facility] Comment on above: Result Comment: PERF ORMED BY: [place] [address] PATHOLOGIST HOME HEALTH SCHEDULER BARBARA MUNOZ M.D. Performed By: #### V [id number], MG, CBC, BMP, TSH3 ####[address] Troponin I High Sensitivityo n 09-01-2023 Troponin I High Sensitivity 33.3 pg/mL High 0.0-15.0 [facility] Comment on above: Result Comment: PERF ORMED BY: [place] [address] PATHOLOGIST HOME HEALTH SCHEDULER BARBARA MUNOZ M.D. Performed By: #### H S TROP #### [facility] [address] [place] [address] Urine Cultureon 09-01-2023 Bacteria identified Cx Nom (U) 75,000 colonies/ml mixed bacterial skin contaminants 2 Days PERFORMED BY: [place] [address] PATHOLOGIST HOME HEALTH SCHEDULER BARBARA MUNOZ M.D. Normal [facility] Comment on above: Performed By: #### C UU, ADDONUAPLUS #### [facility] [address] [place] [address] Vit. B12/Folate Profileon Cobalamin (Vitamin B12) [Mass/Vol] 465 pg/mL Normal 180-914 [facility] Comment on above: Performed By: #### V [id number], MG, CBC, BMP, TSH3 ####[facility] Folate 41.0 ng/mL Normal >5.9 [facility] Comment on above: Result Comment: Danielle te reference range: >5.9 ng/ml The WHO technical consultation on folate and vitamin b12 deficiencies has determined that folate concentrations less than 4 ng/ml are considered deficient. Performed By: #### V [id number], MG, CBC, BMP, TSH3 ####[facility] Fbq1251 [address] XR chest 2V*on 09-01-2023 XR chest 2V* [facility] [place] [address] [place] [address] XRay Report Signed Patient: Jesús Nolan MR#: [id number] 34 : 1935 Acct:[id number] Age/Sex: 88 / F ADM Date: 08/31/23 Loc: Room: [address] [place] [address] Type: ADM IN Attending Dr: Riky Bundy [...] Isabel Vega M.D.09/01/2023 6:23 AM Dictation Location: [place] [address] Transcribed By: [facility] 09/01/23622 Dictated By: Isabel Vega MD 09/01/23621 Signed By: 09/01/23622 Normal [facility] Alanine aminotransferase [En zymatic activity/volume] in Serum or PlasmaOrdered By: Destiny Irwin on 08-31-2023 ALT [Catalytic activity/Vol] 29 U/L 7-52 [facility] Albumin [Mass/volume] in Ser um or Plasma by Bromocresol green (BCG) dye binding methoOrdered By: Destiny Irwin on 08-31-2023 Albumin BCG dye [Mass/Vol] 4.7 g/dL 3.5-5.7 [facility] Alkaline phosphatase [Enzyma tic activity/volume] in Serum or PlasmaOrdered By: Destiny Irwin on 08-31-2023 ALP [Catalytic activity/Vol] 101 U/L 34-104 [facility] Aspartate aminotransferase [ Enzymatic activity/volume] in Serum or PlasmaOrdered By: Destiny Irwin on 08-31-2023 AST [Catalytic activity/Vol] 29 U/L 13-39 [facility] Automated erythrocytes count in urine sediment (number/area)Ordered By: Destiny Irwin on 08-31-2023 RBC Auto (Urine sed) [#/Area] 1-2 [HPF] 0-4 [facility] Automated leukocytes count i n urine sediment (number/area)Ordered By: Destiny Irwin on 08-31-2023 WBC Auto (Urine sed) [#/Area] 50-100 [HPF] 0-4 [facility] Basic Metabolic Panelon Anion gap [Moles/Vol] 16.9 mmol/L High 6.0-15.0 [facility] Comment on above: Performed By: #### B MP, HEPATIC, CBC, LIPASE ####[facility] [id number] [place] [address] [facility] Calcium [Mass/Vol] 9.5 mg/dL Normal 8.6-10.3 [facility] Comment on above: Performed By: #### B MP, HEPATIC, CBC, LIPASE ####[facility] [id number] [place] [address] [facility] Chloride [Moles/Vol] 103 mmol/L Normal 98-107 [facility] Comment on above: Performed By: #### B MP, HEPATIC, CBC, LIPASE ####[facility] [id number] [place] [address] [facility] CO2 [Moles/Vol] 23.7 mmol/L Normal 21.0-31.0 [facility] Comment on above: Performed By: #### B MP, HEPATIC, CBC, LIPASE ####[facility] [place] [address] [facility] Creatinine [Mass/Vol] 2.74 mg/dL High 0.60-1.20 [facility] Comment on above: Performed By: #### B MP, HEPATIC, CBC, LIPASE ####[address] [place] [address] [place] [facility]inine [facility] Pharmacy 12.25 [facility] Comment on above: Performed By: #### B MP, HEPATIC, CBC, LIPASE ####[address] [place] [id number] [facility] GFR/1.73 sq M.predicted MDRD (S/P/Bld) [Vol rate/Area] 16.368 mL/min/{1.73_m2} [facility] Comment on above: Performed By: #### B MP, HEPATIC, CBC, LIPASE ####[address] [place] [id number] [facility] Glucose [Mass/Vol] 132 mg/dL High 70-100 [facility] Comment on above: Result Comment: [place] Glucose Reference Range is dependent on time and content of last meal. Glucose of more than 200 mg/dL in a nonstressed, ambulatory subject supports the diagnosis of Diabetes Mellitus. ADA recommended reference range Performed By: #### B MP, HEPATIC, CBC, LIPASE ####[address] [place] [address] [facility] Potassium [Moles/Vol] 4.6 mmol/L Normal 3.5-5.1 [facility] Comment on above: Performed By: #### B MP, HEPATIC, CBC, LIPASE ####[address] [place] [id number] [facility] Sodium [Moles/Vol] 139 mmol/L Normal 136-145 [facility] Comment on above: Performed By: #### B MP, HEPATIC, CBC, LIPASE ####[facility] [id number] [place] [id number] [facility] Urea nitrogen [Mass/Vol] 30 mg/dL High 7-25 [facility] Comment on above: Performed By: #### B MP, HEPATIC, CBC, LIPASE ####[facility] [address] [place] [address] [facility] Basophils Auto (Bld) [#/Vol] Ordered By: Destiny Irwin on 08-31-2023 Basophils (Bld) [#/Vol] 0.1 10*3/uL 0.0-0.2 [facility] Basophils/100 WBC Auto (Bld) Ordered By: Destiny Irwin on 08-31-2023 Basophils/100 WBC (Bld) 0.6 % . [facility] Bilirubin Test strip Ql (U)O rdered By: Destiny Irwin on 08-31-2023 Bilirubin Ql (U) Negative Negative [facility] Bilirubin.direct [Mass/volum e] in Serum or PlasmaOrdered By: Destiny Irwin on 08-31-2023 Bilirubin.direct [Mass/Vol] 0.10 mg/dL 0.03-0.18 [facility] Bilirubin.total [Mass/volume ] in Serum or PlasmaOrdered By: Destiny Irwin on 08-31-2023 Bilirubin [Mass/Vol] 0.5 mg/dL 0.3-1.0 [facility] Calcium [Mass/volume] in Ser um or PlasmaOrdered By: Destiny Irwin on 08-31-2023 Calcium [Mass/Vol] 9.5 mg/dL 8.6-10.3 [facility] Carbon dioxide, total [Moles /volume] in Serum or PlasmaOrdered By: Destiny Irwin on 08-31-2023 CO2 [Moles/Vol] 23.7 mmol/L 21.0-31.0 [facility] Chloride [Moles/volume] in S shelley or PlasmaOrdered By: Destiny Irwin on 08-31-2023 Chloride [Moles/Vol] 103 mmol/L 98-107 [facility] Color Auto (U)Ordered By: Ashley Irwin on 08-31-2023 Color (U) Yellow Yellow [facility] Complete Blood Count Auto Di ffon 08-31-2023 Basophils (Bld) [#/Vol] 0.1 10*3/uL Normal 0.0-0.2 [facility] Comment on above: Result Comment: PERF ORMED BY: [facility] [address] [place] [address] PATHOLOGIST HOME HEALTH SCHEDULER BARBARA MUNOZ M.D. Performed By: #### B MP, HEPATIC, CBC, LIPASE ####[address] [place] [id number] [facility] Basophils/100 WBC (Bld) 0.6 % Normal . [facility] Comment on above: Performed By: #### B MP, HEPATIC, CBC, LIPASE ####[place] [address] Eosinophils (Bld) [#/Vol] 0.0 10*3/uL Normal 0.0-0.45 [facility] Comment on above: Performed By: #### B MP, HEPATIC, CBC, LIPASE ####[place] [id number] [facility] Eosinophils/100 WBC (Bld) 0.5 % Normal . [facility] Comment on above: Performed By: #### B MP, HEPATIC, CBC, LIPASE ####[place] [id number] [facility] Erythrocyte distribution width (RBC) [Ratio] 13.7 % Normal 11.9-15.3 [facility] Comment on above: Performed By: #### B MP, HEPATIC, CBC, LIPASE ####[place] [id number] [facility] Hematocrit (Bld) [Volume fraction] 40.5 % Normal 34.0-46.4 [facility] Comment on above: Performed By: #### B MP, HEPATIC, CBC, LIPASE ####[place] [id number] [facility] Hemoglobin (Bld) [Mass/Vol] 13.3 g/dL Normal 11.8-15.4 [facility] Comment on above: Performed By: #### B MP, HEPATIC, CBC, LIPASE ####[address] Lymphocytes (Bld) [#/Vol] 1.9 10*3/uL Normal 1.00-4.8 [facility] Comment on above: Performed By: #### B MP, HEPATIC, CBC, LIPASE ####[address] Lymphocytes/100 WBC (Bld) 20.5 % Normal . [facility] Comment on above: Performed By: #### B MP, HEPATIC, CBC, LIPASE ####[address] MCH (RBC) [Entitic mass] 31.5 pg Normal 24.7-34.3 [facility] Comment on above: Performed By: #### B MP, HEPATIC, CBC, LIPASE ####[address] MCV (RBC) [Entitic vol] 95.4 fL Normal 80-100 [facility] Comment on above: Performed By: #### B MP, HEPATIC, CBC, LIPASE ####[address] Mean Corpuscular HGB Conc 33.0 g/dL Normal 32.0-35.0 [facility] Comment on above: Performed By: #### B MP, HEPATIC, CBC, LIPASE ####[address] Monocytes (Bld) [#/Vol] 1.0 10*3/uL High 0.0-0.8 [facility] Comment on above: Performed By: #### B MP, HEPATIC, CBC, LIPASE ####[address] Monocytes/100 WBC (Bld) 18.57 % Normal 0.00-20.00 [facility] Comment on above: Performed By: #### B MP, HEPATIC, CBC, LIPASE ####[place] [id number] [place] Monocytes/100 WBC (Bld) 10.6 % Normal . [facility] Comment on above: Performed By: #### B MP, HEPATIC, CBC, LIPASE ####[address] Neutrophils (Bld) [#/Vol] 6.4 10*3/uL Normal 1.8-7.7 [facility] Comment on above: Performed By: #### B MP, HEPATIC, CBC, LIPASE ####[address] Neutrophils/100 WBC (Bld) 67.8 % Normal . [facility] Comment on above: Performed By: #### B MP, HEPATIC, CBC, LIPASE ####[address] NRBC% 0.0 /100{WBC} Normal 0-0.5 [facility] Comment on above: Performed By: #### B MP, HEPATIC, CBC, LIPASE ####[address] Platelet mean volume (Bld) [Entitic vol] 8.4 fL Normal 6.3-10.7 [facility] Comment on above: Performed By: #### B MP, HEPATIC, CBC, LIPASE ####[place] [id number] [facility] Platelets (Bld) [#/Vol] 249 10*3/uL Normal 150-450 [facility] Comment on above: Performed By: #### B MP, HEPATIC, CBC, LIPASE ####[address] RBC (Bld) [#/Vol] 4.24 10*6/uL Normal 3.60-5.00 [facility] Comment on above: Performed By: #### B MP, HEPATIC, CBC, LIPASE ####[place] [id number] [facility] WBC (Bld) [#/Vol] 9.4 10*3/uL Normal 3.8-11.6 [facility] Comment on above: Performed By: #### B MP, HEPATIC, CBC, LIPASE ####[facility] [address] [place] [id number] [facility] Creatinine [Mass/volume] in Serum or PlasmaOrdered By: Destiny Irwin on 08-31-2023 Creatinine [Mass/Vol] 2.74 mg/dL 0.60-1.20 [facility] D-Dimer High Sensitivityon 1 11-01-2022 D-Dimer High Sensitivity < 200 Normal 0-243 [facility] Comment on above: Result Comment: The reference [...] coagulation studies. Please contact the laboratory at [phone] for redraw instructions. PERFORMED BY: [place] [address] PATHOLOGIST HOME HEALTH SCHEDULER BARBARA MUNOZ M.D. Performed By: #### D DIMER #### [facility] [address] [place] [id number] [facility] ECG 12 lead ECGon 08-31-2023 ECG 12 lead ECG [facility] [place] [address] [place] [address] Electrocardiograph Report Signed Patient: Jesús Nolan MR#: [id number] 36 : 1935 Acct:[id number] Age/Sex: 88 / F ADM Date: 08/31/23 Loc: Room: [address] [place] [address] Type: ADM IN Attending Dr: Riky Bundy [...] V1-V3 consistent prior anterior infarct Confirmed by Yuly Marx DO ([id number]) on 09/01/2023 6:18:58 AM Referred By: Electronically Signed By:Yuly Marx DO Transcribed By: MUS Signed By Yuly Marx DO 06 Normal [facility] Eosinophils Auto (Bld) [#/Vo l]Ordered By: Destiny Irwin on 08-31-2023 Eosinophils (Bld) [#/Vol] 0.0 10*3/uL 0.0-0.45 [facility] Eosinophils/100 WBC Auto (Bl d)Ordered By: Destiny Irwin on 08-31-2023 Eosinophils/100 WBC (Bld) 0.5 % . [facility] Erythrocyte distribution wid th Auto (RBC) [Ratio]Ordered By: Destiny Irwin on 08-31-2023 Erythrocyte distribution width (RBC) [Ratio] 13.7 % 11.9-15.3 [facility] Fibrin D-dimer [Presence] in Platelet poor plasma by Latex agglutinationOrdered By: Destiny Irwin on 08-31-2023 Fibrin D-dimer LA Ql (PPP) < 200 ng/mL 0-243 [facility] Comment on above: The reference range for [...] coagulation studies. Please contact the laboratory at [phone] for redraw instructions. Globulin Calc (S) [Mass/Vol] Ordered By: Destiny Irwin on 08-31-2023 Globulin (S) [Mass/Vol] 3.3 g/dL [facility] Glucose [Mass/volume] in Ser um or PlasmaOrdered By: Destiny Irwin on 08-31-2023 Glucose [Mass/Vol] 132 mg/dL 70-100 [facility] Comment on above: ADA recommended refe rence rangeRandom Glucose Reference Range is dependent on time and content of last meal. Glucose of more than 200 mg/dL in a nonstressed, ambulatory subject supports the diagnosis of Diabetes Mellitus. Hematocrit Auto (Bld) [Volum e fraction]Ordered By: Destiny Irwin on 08-31-2023 Hematocrit (Bld) [Volume fraction] 40.5 % 34.0-46.4 [facility] Hemoglobin [Mass/volume] in BloodOrdered By: Destiny Irwin on 08-31-2023 Hemoglobin (Bld) [Mass/Vol] 13.3 g/dL 11.8-15.4 [facility] Hepatic Panelon 08-31-2023 Albumin [Mass/Vol] 4.7 g/dL Normal 3.5-5.7 [facility] Comment on above: Performed By: #### B MP, HEPATIC, CBC, LIPASE ####[place] [id number] Albumin/Globulin [Mass ratio] 1.4 {ratio} Normal [facility] Comment on above: Performed By: #### B MP, HEPATIC, CBC, LIPASE ####[place] [address] [place] [phone] [facility] ALP [Catalytic activity/Vol] 101 U/L Normal 34-104 [facility] Comment on above: Performed By: #### B MP, HEPATIC, CBC, LIPASE ####[address] [place] [id number] [facility] ALT [Catalytic activity/Vol] 29 U/L Normal 7-52 [facility] Comment on above: Performed By: #### B MP, HEPATIC, CBC, LIPASE ####[place] [address] AST [Catalytic activity/Vol] 29 U/L Normal 13-39 [facility] Comment on above: Performed By: #### B MP, HEPATIC, CBC, LIPASE ####[place] [address] Bilirubin [Mass/Vol] 0.5 mg/dL Normal 0.3-1.0 [facility] Comment on above: Performed By: #### B MP, HEPATIC, CBC, LIPASE ####[address] Bilirubin,Indirect 0.4 mg/dL Normal [facility] Comment on above: Performed By: #### B MP, HEPATIC, CBC, LIPASE ####[address] Bilirubin.indirect [Mass/Vol] 0.10 mg/dL Normal 0.03-0.18 [facility] Comment on above: Performed By: #### B MP, HEPATIC, CBC, LIPASE ####[address] Globulin (S) [Mass/Vol] 3.3 g/dL Normal [facility] Comment on above: Performed By: #### B MP, HEPATIC, CBC, LIPASE ####[address] Protein [Mass/Vol] 8.0 g/dL Normal 6.4-8.9 [facility] Comment on above: Performed By: #### B MP, HEPATIC, CBC, LIPASE ####[address] Ketones Auto test strip (U) [Mass/Vol]Ordered By: Destiny Irwin on 08-31-2023 Ketones (U) [Mass/Vol] Negative Negative [facility] Leukocytes [#/volume] correc tavia for nucleated erythrocytes in Blood by Automated counOrdered By: Destiny Irwin on 08-31-2023 WBC corrected for nucl RBC Auto (Bld) [#/Vol] 9.4 10*3/uL 3.8-11.6 [facility] Lipaseon 08-31-2023 Lipase [Catalytic activity/Vol] 33.0 U/L Normal 11.0-82.0 [facility] Comment on above: Result Comment: PERF ORMED BY: [facility] [address] [place] [address] PATHOLOGIST HOME HEALTH SCHEDULER BARBARA MUNOZ M.D. Performed By: #### B MP, HEPATIC, CBC, LIPASE ####[facility] [id number] [place] [address] [facility] Lipase [Enzymatic activity/v olume] in Serum or PlasmaOrdered By: Destiny Irwin on 08-31-2023 Lipase [Catalytic activity/Vol] 33.0 U/L 11.0-82.0 [facility] Lymphocytes Auto (Bld) [#/Vo l]Ordered By: Destiny Irwin on 08-31-2023 Lymphocytes (Bld) [#/Vol] 1.9 10*3/uL 1.00-4.8 [facility] Lymphocytes/100 WBC Auto (Bl d)Ordered By: Destiny Irwin on 08-31-2023 Lymphocytes/100 WBC (Bld) 20.5 % . [facility] MCH Auto (RBC) [Entitic mass ]Ordered By: Destiny Irwin on 08-31-2023 MCH (RBC) [Entitic mass] 31.5 pg 24.7-34.3 [facility] MCHC Auto (RBC) [Mass/Vol]Or dered By: Destiny Irwin on 08-31-2023 MCHC (RBC) [Mass/Vol] 33.0 g/dL 32.0-35.0 [facility] MCV Auto (RBC) [Entitic vol] Ordered By: Destiny Irwin on 08-31-2023 MCV (RBC) [Entitic vol] 95.4 fL 80-100 [facility] Monocyte distribution width [Entitic volume] in Blood by AutomatedOrdered By: Destiny Irwin on 08-31-2023 Monocyte distribution width Auto (Bld) [Entitic vol] 18.57 % 0.00-20.00 [facility] Monocytes Auto (Bld) [#/Vol] Ordered By: Destiny Irwin on 08-31-2023 Monocytes (Bld) [#/Vol] 1.0 10*3/uL 0.0-0.8 [facility] Monocytes/100 WBC Auto (Bld) Ordered By: Destiny Irwin on 08-31-2023 Monocytes/100 WBC (Bld) 10.6 % . [facility] Neutrophils Auto (Bld) [#/Vo l]Ordered By: Destiny Irwin on 08-31-2023 Neutrophils (Bld) [#/Vol] 6.4 10*3/uL 1.8-7.7 [facility] Neutrophils/100 WBC Auto (Bl d)Ordered By: Destiny Irwin on 08-31-2023 Neutrophils/100 WBC (Bld) 67.8 % . [facility] Nitrite Test strip Ql (U)Ord ered By: Destiny Irwin on 08-31-2023 Nitrite Ql (U) Negative Negative [facility] No Panel InformationOrdered By: Destiny Irwin on 08-31-2023 Estimated GFR (CKD-EPI) 16.368 mL/Min [facility] Pharmacy Creatinine Clearance (Chem 12.25 [facility] Nucleated erythrocytes [Pres ence] in Blood by Automated countOrdered By: Destiny Irwin on 08-31-2023 Nucleated RBC Auto Ql (Bld) 0.0 /100{WBC} 0-0.5 [facility] Platelet mean volume Auto (B ld) [Entitic vol]Ordered By: Destiny Irwin on 08-31-2023 Platelet mean volume (Bld) [Entitic vol] 8.4 fL 6.3-10.7 [facility] Platelets Auto (Bld) [#/Vol] Ordered By: Destiny Irwin on 08-31-2023 Platelets (Bld) [#/Vol] 249 10*3/uL 150-450 [facility] Potassium [Moles/volume] in Serum or PlasmaOrdered By: Destiny Irwin on 08-31-2023 Potassium [Moles/Vol] 4.6 mmol/L 3.5-5.1 [facility] Protein Auto test strip (U) [Mass/Vol]Ordered By: Destiny Irwin on 08-31-2023 Protein (U) [Mass/Vol] 30 mg/dL Negative [facility] Protein [Mass/volume] in Ser um or PlasmaOrdered By: Destiny Irwin on 08-31-2023 Protein [Mass/Vol] 8.0 g/dL 6.4-8.9 [facility] RBC Auto (Bld) [#/Vol]Ordere d By: Destiny Irwin on 08-31-2023 RBC (Bld) [#/Vol] 4.24 10*6/uL 3.60-5.00 [facility] Serum or plasma albumin/glob ulin mass ratioOrdered By: Destiny Irwin on 08-31-2023 Albumin/Globulin [Mass ratio] 1.4 {ratio} [facility] Serum or plasma anion gap de terminationOrdered By: Destiny Irwin on 08-31-2023 Anion gap [Moles/Vol] 16.9 mmol/L 6.0-15.0 [facility] Serum or plasma non-glucuron idated bilirubin measurement (mass/volume)Ordered By: Destiny Irwin on 08-31-2023 Bilirubin.indirect [Mass/Vol] 0.4 mg/dL [facility] Sodium [Moles/volume] in Ser um or PlasmaOrdered By: Destiny Irwin on 08-31-2023 Sodium [Moles/Vol] 139 mmol/L 136-145 [facility] Specific gravity Auto test s trip (U) [Rel density]Ordered By: Destiny Irwin on 08-31-2023 Specific gravity (U) [Rel density] 1.016 1.001-1.030 [facility] Squamous epithelial cells de tection in urine sediment by light microscopyOrdered By: Destiny Irwin on 08-31-2023 Epithelial cells.squamous LM Ql (Urine sed) 3-4 [HPF] 0-2 [facility] Troponin I High Sensitivityo n 08-31-2023 Troponin I High Sensitivity 18.1 pg/mL High 0.0-15.0 [facility] Comment on above: Result Comment: PERF ORMED BY: [facility] [address] [place] [address] PATHOLOGIST HOME HEALTH SCHEDULER BARBARA MUNOZ M.D. Performed By: #### H S TROP ####[facility] [id number] [place] [id number] [facility] Troponin I.cardiac [Mass/vol ume] in Serum or Plasma by Detection limit <= 0.01 ng/Ordered By: Destiny Irwin on 08-31-2023 Troponin I.cardiac DL <= 0.01 ng/mL [Mass/Vol] 18.1 pg/mL 0.0-15.0 [facility] Urea nitrogen [Mass/volume] in Serum or PlasmaOrdered By: Destiny Irwin on 08-31-2023 Urea nitrogen [Mass/Vol] 30 mg/dL 7-25 [facility] Urine bacteria detection by automated methodOrdered By: Destiny Irwin on 08-31-2023 Bacteria Auto Ql (U) None seen None [facility] Urine clarity by refractomet ry automatedOrdered By: Destiny Irwin on 08-31-2023 Clarity Refractometry automated (U) Cloudy Clear [facility] Urine glucose measurement by automated test strip (mass/volume)Ordered By: Destiny Irwin on 08-31-2023 Glucose Auto test strip (U) [Mass/Vol] Normal mg/dL Normal [facility] Urine hemoglobin detection b y automated test stripOrdered By: Destiny rIwin on 08-31-2023 Hemoglobin Auto test strip Ql (U) Trace Negative [facility] Urine leukocyte esterase det ection by automated test stripOrdered By: Destiny Irwin on 08-31-2023 Leukocyte esterase Auto test strip Ql (U) 4+ Negative [facility] Urobilinogen Auto test strip (U) [Mass/Vol]Ordered By: Destiny Irwin on 08-31-2023 Urobilinogen (U) [Mass/Vol] Normal mg/dL Normal [facility] WBC Auto (Bld) [#/Vol]Ordere d By: Destiny Irwin on 08-31-2023 WBC (Bld) [#/Vol] 9.4 10*3/uL 3.8-11.6 [facility] pH Auto test strip (U)Ordere d By: Destiny Irwin on 08-31-2023 pH (U) 6.0 [pH] 5.0-9.0 [facility] Insurance Correspondence Off iceon 08-27-2023 Insurance Correspondence Office [phone] [id number] 0TIFF Normal [facility] CBC AUTO DIFFon 04-12-2021 BASO # 0.0 103/ul Normal 0.0-0.1 [facility] Comment on above: Performed By: #### C BC #### [facility] [id number] [place] Basophils/100 WBC (Bld) 0.3 % Normal 0.2-2.0 [facility] Comment on above: Performed By: #### C BC #### [facility] [address] [place] [address] [place]sey Isabel EO # 0.1 103/ul Normal 0.0-0.7 [facility] Comment on above: Performed By: #### C BC #### [facility] [address] [place] [address] [place] Eosinophils/100 WBC (Bld) 2.1 % Normal 0.9-7.0 [facility] Comment on above: Performed By: #### C BC #### [facility] [address] [place] [address] [place] Erythrocyte distribution width (RBC) [Ratio] 13.7 % Normal 11.0-15.0 [facility] Comment on above: Performed By: #### C BC #### [facility] [address] [place] [address] Chelsey Isabel Hematocrit (Bld) [Volume fraction] 39.6 % Normal 36.0-48.0 [facility] Comment on above: Performed By: #### C BC #### [facility] [address] [place], [place] [id number] Chelsey Isabel Hemoglobin (Bld) [Mass/Vol] 12.9 g/dL Normal 12.0-16.0 [facility] Comment on above: Performed By: #### C BC #### [facility] [address] [place] [address] Chel[place]fel[place]erto [place] IG # 0.01 10e3/ul Normal 0.00-0.03 [facility] Comment on above: Performed By: #### C BC #### [facility] [address] [place] [address] [place] IG % 0.2 % Normal 0.0-0.5 [facility] Comment on above: Performed By: #### C BC #### [facility] [address] [place] [address] [place] LYMPH # 2.2 103/ul Normal 1.2-3.8 [facility] Comment on above: Performed By: #### C BC #### [facility] [address] [place] [address] [place] Lymphocytes/100 WBC (Bld) 35.3 % Normal 20.5-60.0 [facility] Comment on above: Performed By: #### C BC #### [facility] [address] [place] [address] [place] MANUAL DIFF REQ NO Normal [facility] Comment on above: Performed By: #### C BC #### [facility] [address] [place] [address] [place] Hall MCH (RBC) [Entitic mass] 31.1 pg Normal 26.7-34.0 [facility] Comment on above: Performed By: #### C BC #### [facility] [address] [place] [address] Chelsey Hlal MCHC (RBC) [Mass/Vol] 32.6 g/dL Normal 29.9-35.2 [facility] Comment on above: Performed By: #### C BC #### [facility] [address] [place] [address] [place]fel[place] MCV (RBC) [Entitic vol] 95.4 fL Normal 81.0-99.0 [facility] Comment on above: Performed By: #### C BC #### [facility] [address] [place] [address] Chelsey Isabel MONO # 0.7 103/ul Normal 0.3-0.8 [facility] Comment on above: Performed By: #### C BC #### [facility] [address] [place], [place] [address] Chelsey Baxteren Monocytes/100 WBC (Bld) 12.1 % Critically high 1.7-12. 0 [facility] Comment on above: Performed By: #### C BC #### [facility] [address] [place] [id number] Chelsey Baxteren NEUT # 3.1 103/ul Normal 1.4-6.5 [facility] Comment on above: Performed By: #### C BC #### [facility] [address] [place], [place] [id number] Chelsey Hall Neutrophils/100 WBC (Bld) 50.0 % Normal 43.0-75.0 [facility] Comment on above: Performed By: #### C BC #### [facility] [address] [place], [place] [id number] Chelsey Hall Platelet mean volume (Bld) [Entitic vol] 10.2 fL Normal 9.5-13.5 [facility] Comment on above: Performed By: #### C BC #### [facility] [address] [place], [place] [id number] Chelsey Isabel PLT 212 103/ul Normal 150-450 [facility] Comment on above: Performed By: #### C BC #### [facility] [address] [place], [place] [phone] Chelsey Isabel RBC 4.15 106/ul Critically low 4.20-5.40 [facility] Comment on above: Performed By: #### C BC #### [facility] [address] [place] [address] Chelsey Isabel WBC 6.1 103/ul Normal 4.0-11.0 [facility] Comment on above: Performed By: #### C BC #### [facility] [address] [place], [place] [phone] Chelsey Hall RENAL FUNCTION PANELon 04-12 Albumin [Mass/Vol] 3.4 g/dL Critically low 3.5-5.0 [facility] Comment on above: Performed By: #### R ENAL #### [facility] [address] [id number] Chelsey Isabel Calcium [Mass/Vol] 8.9 mg/dL Normal 8.4-10.2 [facility] Comment on above: Performed By: #### R ENAL #### [facility] [address] [address] Chelsey Isabel Chloride [Moles/Vol] 106 mmol/L Normal 98-107 [facility] Comment on above: Performed By: #### R ENAL #### [facility] [address] [address] Chelsey Isabel CO2 [Moles/Vol] 29.4 mmol/L Normal 22.0-30.0 [facility] Comment on above: Performed By: #### R ENAL #### [facility] [address] [place] [address] Chelsey Isabel Creatinine [Mass/Vol] 1.49 mg/dL Critically high 0.52-1.04 [facility] Comment on above: Performed By: #### R ENAL #### [facility] [address] [place], [place] [phone] Chelsey Isabel EGFR-AF TRINIDADIAN 41 mL/min/1.73m2 Critically low >=60 [facility] Comment on above: Performed By: #### R ENAL #### [facility] [address] [place] [address] Chelsey Isabel EGFR-NON AF TRINIDADIAN 33 mL/min/1.73m2 Critically low >=60 [facility] Comment on above: Performed By: #### R ENAL #### [facility] [address] [address] Chelsey Isabel Glucose [Mass/Vol] 138 mg/dL Critically high 74-106 [facility] Comment on above: Performed By: #### R ENAL #### [facility] [address] [id number] Chelsey Isabel Phosphate [Mass/Vol] 4.3 mg/dL Normal 2.5-4.5 [facility] Comment on above: Performed By: #### R ENAL #### [facility] [address] [place] [address] Chelsey Isabel Potassium [Moles/Vol] 3.2 mmol/L Critically low 3.4-5.0 [facility] Comment on above: Performed By: #### R ENAL #### [facility] [address] [place] [address] Chelsey Isabel Sodium [Moles/Vol] 144 mmol/L Normal 137-145 [facility] Comment on above: Performed By: #### R ENAL #### [facility] [address] [place] [address] Chelsey Isabel Urea nitrogen [Mass/Vol] 28.0 mg/dL Critically high 7.0-17 .0 [facility] Comment on above: Performed By: #### R ENAL #### [facility] [address] [place] [address] Chelsey Isabel UA RANDOMon 04-12-2021 Bilirubin Ql (U) Negative Normal NEGATIVE [facility] Comment on above: Performed By: #### U A #### [facility] [address] [place] [address] Chelsey Isabel Clarity (U) CLOUDY Abnormal CLEAR [facility] Comment on above: Performed By: #### U A #### [facility] [address] [place] [address] Chelsey Isabel Color (U) LT. YELLOW Normal YELLOW [facility] Comment on above: Performed By: #### U A #### [facility] [address] [place] [address] Chelsey Isabel Glucose Ql (U) Negative Normal NEGATIVE [facility] Comment on above: Performed By: #### U A #### [facility] [address] [place] [address] Chelsey Isabel Hemoglobin Ql (U) LARGE Abnormal NEGATIVE [facility] Comment on above: Performed By: #### U A #### [facility] [address] [place] [address] Chelsey Isabel Ketones Ql (U) Negative Normal NEGATIVE [facility] Comment on above: Performed By: #### U A #### [facility] [address] [place], [place] [phone] Chelsey Hall LEUKOCYTES LARGE Abnormal NEGATIVE [facility] Comment on above: Performed By: #### U A #### [facility] [address] [place], [place] [phone] Chelsey Hall Nitrite Ql (U) Negative Normal NEGATIVE [facility] Comment on above: Performed By: #### U A #### [facility] [address] [place], [place] [phone] Chelsey Hall pH (U) 6.5 [pH] Normal 5-9 [facility] Comment on above: Performed By: #### U A #### [facility] [address] [place] [address] Chelsey Hall SPEC GRAVITY 1.015 Normal 1.005-<=1.0 25 [facility] Comment on above: Performed By: #### U A #### [facility] [address] [place] [address] Chelsey Hall UA PROTEIN 30 mg/dl Abnormal NEGATIVE/ TRACE [facility] Comment on above: Performed By: #### U A #### [facility] [address] [place], [place] [phone] Chelsey Hall Urobilinogen Qn (U) 0.2 {Gerard'U}/dL Normal 0.2 - 1. 0 [facility] Comment on above: Performed By: #### U A #### [facility] [address] [place] [address] Chelsey Hall C-Reactive Proteinon 021 CRP [Mass/Vol] 7.9 mg/L High 0.0-5.0 [facility] Comment on above: Performed By: #### C DP #### [facility] [address] [place] [address] Robotic Welder: Loi Irene MD #### CRP #### [address] [address] Robotic Welder: Dg Aparicio MD CRP [Mass/Vol] 7.9 mg/L High 0.0 - 5.0 mg/L [employer] Phone: Interpretation and review of laboratory results Abnormal [employer] Phone: PTH, Intacton 12-06-2020 PTH, Intact 39.87 pg/mL Normal 15.0-65.0 [facility] Comment on above: Result Comment: SAMP LES FROM PATIENTS ROUTINELY RECEIVING HIGH DOSE BIOTIN THERAPY MAY SHOW FALSELY DEPRESSED RESULTS. ADDITIONAL INFORMATION MAY BE REQUIRED FOR DIAGNOSIS. Performed By: #### ARMANDO Warren URI #### [facility] [address] [place] [address] Robotic Welder: Loi Irene MD #### PTHNCA #### [employer] [address] [place], [place] [address] Robotic Welder: Dg Aparicio MD Pth Intact 39.87 pg/mL 15.0 - 65.0 pg/mL [employer] Phone: Comment on above: SAMPLES FROM PATIENT S ROUTINELY RECEIVING HIGH DOSE BIOTIN THERAPY MAY SHOW FALSELY DEPRESSED RESULTS. ADDITIONAL INFORMATION MAY BE REQUIRED FOR DIAGNOSIS. CBC Auto Differentialon 11-25 Basophils (Bld) [#/Vol] 10*3/uL [employer] Phone: Basophils/100 WBC (Bld) 0 % 0 - 2 % [employer] Phone: Differential Type NOT REPORTED [employer] Phone: Eosinophils (Bld) [#/Vol] 0.16 10*3/uL [employer] Phone: Eosinophils/100 WBC (Bld) 3 % 1 - 4 % [employer] Phone: Erythrocyte distribution width (RBC) [Ratio] 15.3 % High 11.8 - 14.4 % [employer] Phone: Hematocrit (Bld) [Volume fraction] 38.3 % 36.3 - 47.1 % [employer] Phone: Hemoglobin (Bld) [Mass/Vol] 11.9 g/dL 11.9 - 15.1 g/dL [employer] Phone: Immature granulocytes (Bld) [#/Vol] 10*3/uL [employer] Phone: Immature granulocytes (Bld) [#/Vol] 0 % 0 [employer] Phone: Interpretation and review of laboratory results Abnormal [employer] Phone: Lymphocytes (Bld) [#/Vol] 1.68 10*3/uL [employer] Phone: Lymphocytes/100 WBC (Bld) 32 % 24 - 43 % [employer] Phone: MCH (RBC) [Entitic mass] 31.2 pg 25. 2 - 33.5 pg [employer] Phone: MCHC (RBC) [Mass/Vol] 31.1 g/dL 28.4 - 34.8 g/dL [employer] Phone: MCV (RBC) [Entitic vol] 100.3 fL 82.6 - 102.9 fL [employer] Phone: Monocytes (Bld) [#/Vol] 0.67 10*3/uL [employer] Phone: Monocytes/100 WBC (Bld) 13 % High 3 - 12 % M [employer] Phone: Platelet mean volume (Bld) [Entitic vol] 10.2 fL 8.1 - 13.5 fL [employer] Phone: Platelets (Bld) [#/Vol] 238 10*3/uL [employer] Phone: Platelets (Bld) [#/Vol] NOT REPORTED [employer] Phone: RBC (Bld) [#/Vol] 3.82 10*6/uL Low 3.95 - 5.1 1 m/uL [employer] Phone: RBC morphology finding Nom (Bld) NOT REPORTED [employer] Phone: Segmented neutrophils/100 WBC (Bld) 52 % 36 - 65 % [employer] Phone: Segs Absolute 2.75 [employer] Phone: WBC (Bld) [#/Vol] 5.3 10*3/uL [employer] Phone: WBC (Bld) [#/Vol] 0.0 10*3/uL 0.0 per 10 0 WBC [employer] Phone: WBC Morphology NOT REPORTED [employer] Phone: CBC with Diffon 12-05-2020 Abs. Basophil <0.03 Normal 0.00-0.20 [facility] Comment on above: Performed By: #### C DP #### [facility] [address] [place] [address] [place] [address] Robotic Welder: Loi Irene MD #### CRP #### [address] [id number] Robotic Welder: Dg Aparicio MD Abs.Imm.Granulocyte <0.03 Normal 0.00-0.30 [facility] Comment on above: Performed By: #### C DP #### [facility] [address] [place] [address] [place] [address] Robotic Welder: Loi Irene MD #### CRP #### [address] [id number] Robotic Welder: Dg Aparicio MD Abs.Neutrophil (Seg) 2.75 k/uL Normal 1.50-8.10 [facility] Comment on above: Performed By: #### C DP #### [facility] [address] [place] [address] [address]. [place], [place] [id number] Robotic Welder: Loi Irene MD #### CRP #### [address] [id number] Robotic Welder: Dg Aparicio MD Basophils/100 WBC (Bld) 0 % Normal 0-2 [facility] Comment on above: Performed By: #### C DP #### [facility] [address] [place] [address] [address]. [place], [place] [id number] Robotic Welder: Loi Irene MD #### CRP #### [address] [address] Robotic Welder: Dg Aparicio MD Eosinophils (Bld) [#/Vol] 0.16 10*3/uL Normal 0.00-0.44 [facility] Comment on above: Performed By: #### C DP #### [address] [place], [place] [address] Robotic Welder: Loi Irene MD #### CRP #### [address] [address] Robotic Welder: Dg Aparicio MD Eosinophils/100 WBC (Bld) 3 % Normal 1-4 [facility] Comment on above: Performed By: #### C DP #### [facility] [address] [place] [address] [address]. [place], [place] [address] Robotic Welder: Loi Irene MD #### CRP #### [address] [address] Robotic Welder: Dg Aparicio MD Erythrocyte distribution width (RBC) [Ratio] 15.3 % High 11.8-14.4 [facility] Comment on above: Performed By: #### C DP #### [facility] [address] [place] [address] [address]. [place], [place] [phone] Robotic Welder: Loi Irene MD #### CRP #### [address] [place], [place] [id number] Robotic Welder: Dg Aparicio MD Hematocrit (Bld) [Volume fraction] 38.3 % Normal 36.3-47.1 [facility] Comment on above: Performed By: #### C DP #### [address] [place] [id number] Robotic Welder: Loi Irene MD #### CRP #### [address] [id number] Robotic Welder: Dg Aparicio MD Hemoglobin (Bld) [Mass/Vol] 11.9 g/dL Normal 11.9-15.1 [facility] Comment on above: Performed By: #### C DP #### [address] [place] [id number] ( Robotic Welder: Loi Irene MD #### CRP #### [address] [address] Robotic Welder: Dg Aparicio MD Immature granulocytes/100 WBC (Bld) 0 % Normal 0 [facility] Comment on above: Performed By: #### C DP #### [address] [place] [address] Robotic Welder: oLi Irene MD #### CRP #### [address] [address] Robotic Welder: Dg Aparicio MD Lymphocytes (Bld) [#/Vol] 1.68 10*3/uL Normal 1.10-3.70 [facility] Comment on above: Performed By: #### C DP #### [address] [place], [place] [address] Robotic Welder: Loi Irene MD #### CRP #### [place] [address] [place], [place] [id number] Robotic Welder: Dg Aparicio MD Lymphocytes/100 WBC (Bld) 32 % Normal 24-43 [facility] Comment on above: Performed By: #### C DP #### [facility] [address] [place], [place] [id number] Robotic Welder: Loi Irene MD #### CRP #### [address] [address] Robotic Welder: Dg Aparicio MD MCH (RBC) [Entitic mass] 31.2 pg Normal 25.2-33.5 [facility] Comment on above: Performed By: #### C DP #### [facility] [address] [place] [phone] Robotic Welder: Loi Irene MD #### CRP #### [address] [address] Robotic Welder: Dg Aparicio MD MCHC (RBC) [Mass/Vol] 31.1 g/dL Normal 28.4-34.8 [facility] Comment on above: Performed By: #### C DP #### [facility] [address] [place], [place] [phone] Robotic Welder: Loi Irene MD #### CRP #### [address] [address] Robotic Welder: Dg Aparicio MD MCV (RBC) [Entitic vol] 100.3 fL Normal 82.6-102.9 M [facility] Comment on above: Performed By: #### C DP #### [facility] [address] [place], [place] [id number] Robotic Welder: Loi Irene MD #### CRP #### [address] [address] Robotic Welder: Dg Aparicio MD Monocytes (Bld) [#/Vol] 0.67 10*3/uL Normal 0.10-1.20 [facility] Comment on above: Performed By: #### C DP #### [facility] [address] [place] [phone] Robotic Welder: Loi Irene MD #### CRP #### [place] [address] Robotic Welder: Dg Aparicio MD Monocytes/100 WBC (Bld) 13 % High 3-12 M [facility] Comment on above: Performed By: #### C DP #### [facility] [address] [place] [address] [place] [address] Robotic Welder: Loi Irene MD #### CRP #### [place] [address] Robotic Welder: Dg Aparicio MD Neutrophil (Seg) 52 % Normal 36-65 [facility] Comment on above: Performed By: #### C DP #### [facility] [address] [place] [address] [place] [address] Robotic Welder: Loi Irene MD #### CRP #### [place] [address] Robotic Welder: Dg Aparicio MD NRBC Automated 0.0 per 100 WBC Normal 0.0 [facility] Comment on above: Performed By: #### C DP #### [facility] [address] [place] [address] [place] [address] Robotic Welder: Loi Irene MD #### CRP #### [place] [address] Robotic Welder: Dg Aparicio MD Platelet mean volume (Bld) [Entitic vol] 10.2 fL Normal 8.1-13.5 [facility] Comment on above: Performed By: #### C DP #### [facility] [address] [place] [address] Robotic Welder: Loi Irene MD #### CRP #### [address] [place] [address] Robotic Welder: Dg Aparicio MD Platelets (Bld) [#/Vol] 238 10*3/uL Normal 138-453 [facility] Comment on above: Performed By: #### C DP #### [facility] [address] [place] [address] Robotic Welder: Loi Irene MD #### CRP #### [address] [address] Robotic Welder: Dg Aparicio MD RBC (Bld) [#/Vol] 3.82 10*6/uL Low 3.95-5.11 [facility] Comment on above: Performed By: #### C DP #### [address] [place] [address] Robotic Welder: Loi Irene MD #### CRP #### [address] [address] Robotic Welder: Dg Aparicio MD WBC (Bld) [#/Vol] 5.3 10*3/uL Normal 3.5-11.3 [facility] Comment on above: Performed By: #### C DP #### [address] [place] [address] Robotic Welder: Loi Irene MD #### CRP #### [address] [address] Robotic Welder: Dg Aparicio MD Auto Diff Performed NOT REPORTED Normal [facility] Comment on above: Performed By: #### C DP #### [address] [place], [place] [phone] Robotic Welder: Loi Irene MD #### CRP #### [facility] [address] [place] [address] Robotic Welder: Dg Aparicio MD Platelet Estimate NOT REPORTED Normal [facility] Comment on above: Performed By: #### C DP #### [facility] [address] [place], [place] [phone] Robotic Welder: Loi Irene MD #### CRP #### [facility] [address] [place] [address] Robotic Welder: Dg Aparicio MD RBC morphology finding Nom (Bld) NOT REPORTED Normal [facility] Comment on above: Performed By: #### C DP #### [address] [place], [place] [address]609483 Robotic Welder: Loi Irene MD #### CRP #### [address] [address] Robotic Welder: Dg Aparicio MD WBC Morphology NOT REPORTED Normal [facility] Comment on above: Performed By: #### C DP #### [address] [place], [place] [address] Robotic Welder: Loi Irene MD #### CRP #### [address] [address] Robotic Welder: Dg Aparicio MD Magnesiumon 12-05-2020 Magnesium [Mass/Vol] 2.2 mg/dL Normal 1.6-2.6 [facility] Comment on above: Performed By: #### M ARMANDO Padgett URI #### [address] [place], [place] 40[address] Robotic Welder: Loi Irene MD #### PTHNCA #### [facility] [address] [place] [address] Robotic Welder: Dg Aparicio MD Magnesium [Mass/Vol] 2.2 mg/dL 1.6 - 2 .6 mg/dL [employer] Phone: Metabolic Panelon 12-05-2020 GFR/1.73 sq M predicted among non-blacks MDRD (S/P/Bld) [Vol rate/Area] [employer] Phone: Comment on above: Average GFR for 70 o r more years old: 75 mL/min/1.73sq m Chronic Kidney Disease: <60 mL/min/1.73sq m Kidney failure: <15 mL/min/1.73sq m eGFR calculated using average adult body mass. Additional eGFR calculator available at: http://www.[employer]Asset/SixDoors_crcl_2011.htm Stage 1: Some kidney damage normal GFR Stage 2: Mild kidney damage GFR 60-89 Stage 3: Moderate kidney damage GFR 30-59 Stage 4: Severe kidney damage GFR 15-29 Stage 5: Severe kidney damage GFR <15 ESRD - chronic treatment by dialysis or transplant Otheron 12-05-2020 Interpretation and review of laboratory results Abnormal [employer] Phone: Renal Function Panelon 12-05 (cont.) Normal [facility] Comment on above: Result Comment: Aver age GFR for 70 or more years old: 75 mL/min/1.73sq m Chronic Kidney Disease: <60 mL/min/1.73sq m Kidney failure: <15 mL/min/1.73sq m eGFR calculated using average adult body mass. Additional eGFR calculator available at: http://www.[employer]/SixDoors_crcl_2011.htm Performed By: #### ARMANDO Warren URI #### [facility] [address] [place] [address] Robotic Welder: Loi Irene MD #### PTHNCA #### [address] [address] Robotic Welder: Dg Aparicio MD Albumin [Mass/Vol] 3.5 g/dL Normal 3.5-5.2 [facility] Comment on above: Performed By: #### ARMANDO Warren, URI #### [facility] [address] [place], [place] 276[address] Robotic Welder: Loi Irene MD #### PTHNCA #### [address] [address] Robotic Welder: Dg Aparicio MD Anion gap [Moles/Vol] 11 mmol/L Normal 9-17 [facility] Comment on above: Performed By: #### ARMANDO Warren, URI #### [facility] [address] [place], [place] 2114[address] Robotic Welder: Loi Irene MD #### PTHNCA #### [address] [address] Robotic Welder: Dg Aparicio MD BUN/CRE Ratio 20 Normal 9-20 [facility] Comment on above: Performed By: #### ARMANDO Warren, URI #### [facility] [address] [place], [place] [id number] Robotic Welder: Loi Irene MD #### PTHNCA #### [address] [address] Robotic Welder: Dg Aparicio MD Calcium [Mass/Vol] 9.3 mg/dL Normal 8.6-10.4 [facility] Comment on above: Performed By: #### ARMANDO Warren, URI #### [facility] [address] [place], [place] [phone] Robotic Welder: Loi Irene MD #### PTHNCA #### [address] [address] Robotic Welder: Dg Aparicio MD Chloride [Moles/Vol] 103 mmol/L Normal 98-107 [facility] Comment on above: Performed By: #### M G, RENP, URI #### [facility] [address] [place], [place] [address]83 Robotic Welder: Loi Irene MD #### PTHNCA #### [address] [address] Robotic Welder: Dg Aparicio MD CO2 [Moles/Vol] 29 mmol/L Normal 20-31 [facility] Comment on above: Performed By: #### M G, RENP, URI #### [facility] [address] [place], [place] 4946083 Robotic Welder: Loi Irene MD #### PTHNCA #### [address] [address] Robotic Welder: Dg Aparicio MD Creatinine [Mass/Vol] 1.43 mg/dL High 0.50-0.90 [facility] Comment on above: Performed By: #### FROY WarrenP, URI #### [facility] [address] [place], [place] [id number] Robotic Welder: Loi Irene MD #### PTHNCA #### [address] [address] Robotic Welder: Dg Aparicio MD GFR, Amer 42 mL/min Low >60 [facility] Comment on above: Performed By: #### Leah Padgett RENP, URI #### [facility] [address] [place], [place] [address]483 Robotic Welder: Loi Irene MD #### PTHNCA #### [address] [address] Robotic Welder: Dg Aparicio MD GFR,non Amer 35 mL/min Low >60 [facility] Comment on above: Performed By: #### Leah Padgett RENP, URI #### [address] [place], [place] 3917183 Robotic Welder: Loi Irene MD #### PTHNCA #### [address] [id number] Robotic Welder: Dg Aparicio MD Glucose [Mass/Vol] 131 mg/dL High 70-99 [facility] Comment on above: Performed By: #### ARMANDO Warren URI #### [facility] [address] [place] [address] [place], [place] 5161283 Robotic Welder: Loi Irene MD #### PTHNCA #### [address] [phone] Robotic Welder: Dg Aparicio MD Phosphorus, Inorg. 3.6 mg/dL Normal 2.6-4.5 [facility] Comment on above: Performed By: #### ARMANDO Warren URI #### [address] [place], [place] [id number] Robotic Welder: Loi Irene MD #### PTHNCA #### [address] [address] Robotic Welder: Dg Aparicio MD Potassium [Moles/Vol] 3.4 mmol/L Low 3.7-5.3 [facility] Comment on above: Performed By: #### ARMANDO Warren URI #### [address] [place], [place] 1029283 Robotic Welder: Loi Irene MD #### PTHNCA #### [address] [address] Robotic Welder: Dg Aparicio MD Sodium [Moles/Vol] 143 mmol/L Normal 135-144 [facility] Comment on above: Performed By: #### ARMANDO Warren URI #### [facility] [address] [place] [address] [place] [address] Robotic Welder: Loi Irene MD #### PTHNCA #### [id number] [place], [place] 1901808 Robotic Welder: Dg Aparicio MD Staging: Normal [facility] Comment on above: Result Comment: Stag e 1: Some kidney damage normal GFR Stage 2: Mild kidney damage GFR 60-89 Stage 3: Moderate kidney damage GFR 30-59 Stage 4: Severe kidney damage GFR 15-29 Stage 5: Severe kidney damage GFR <15 ESRD - chronic treatment by dialysis or transplant Performed By: #### ARMANDO Warren, URI #### [address] [place] [address] Robotic Welder: Loi Irene MD #### PTHNCA #### [address] [id number] Robotic Welder: Dg Aparicio MD Urea nitrogen [Mass/Vol] 29 mg/dL High 8-23 [facility] Comment on above: Performed By: #### ARMANDO Warren, URI #### [address] [place] [address] Robotic Welder: Loi Irene MD #### PTHNCA #### [id number] [place], [place] 2012208 Robotic Welder: Dg Aparicio MD Albumin [Mass/Vol] 3.5 g/dL 3.5 - 5.2 g/dL [facility]: Anion gap [Moles/Vol] 11 mmol/L 9 - 17 mmol/L [employer] Phone: Bun/Cre Ratio 20 [facility]: Calcium [Mass/Vol] 9.3 mg/dL 8.6 - 10. 4 mg/dL [employer] Phone: Chloride [Moles/Vol] 103 mmol/L 98 - 10 7 mmol/L [employer] Phone: CO2 [Moles/Vol] 29 mmol/L 20 - 31 mmol/L [employer] Phone: Creatinine [Mass/Vol] 1.43 mg/dL High 0.50 - 0.90 mg/dL [employer] Phone: GFR 42 mL/min Low >60 [email or web address] Phone: GFR Non- 35 mL/min Low >60 [employer] Phone: Glucose [Mass/Vol] 131 mg/dL High 70 - 99 mg/dL [employer] Phone: Phosphate [Mass/Vol] 3.6 mg/dL 2.6 - 4 .5 mg/dL [employer] Phone: Potassium [Moles/Vol] 3.4 mmol/L Low 3.7 - 5.3 mmol/L [employer] Phone: Sodium [Moles/Vol] 143 mmol/L 135 - 144 mmol/L [employer] Phone: Urea nitrogen [Mass/Vol] 29 mg/dL High 8 - 23 mg/dL [employer] Phone: Uric Acidon 12-05-2020 Urate [Mass/Vol] 7.3 mg/dL High 2.4-5.7 [facility] Comment on above: Performed By: #### M ARMANDO Padgett, URI #### [facility] [address] [place] [address] Robotic Welder: Loi Ierne MD #### PTHNCA #### [facility] [employer] [facility] [place] [address] Robotic Welder: Dg Aparicio MD Urate [Mass/Vol] 7.3 mg/dL High 2.4 - 5.7 mg/dL [employer] Phone: C-Reactive Proteinon 021 CRP [Mass/Vol] 7.8 mg/L High 0.0-5.0 [facility] Comment on above: Performed By: #### C DP, SED #### [facility] [address] [place] [address] Robotic Welder: Loi Irene MD #### CRP #### [facility] [address] [place], [place] [id number] Robotic Welder: Dg Aparicio MD CRP [Mass/Vol] 7.8 mg/L High 0 - 5 mg/L [employer] Phone: Interpretation and review of laboratory results Abnormal [employer] Phone: CBC Auto Differentialon 10-28 Basophils (Bld) [#/Vol] 10*3/uL [facility] [employer] Phone: Basophils/100 WBC (Bld) 0 % 0 - 2 % [employer] Phone: Differential Type NOT REPORTED [employer] Phone: Eosinophils (Bld) [#/Vol] 0.37 10*3/uL [employer] Phone: Eosinophils/100 WBC (Bld) 5 % High 1 - 4 % [employer] Phone: Erythrocyte distribution width (RBC) [Ratio] 17.7 % High 11.8 - 14.4 % [employer] Phone: Hematocrit (Bld) [Volume fraction] 36.9 % 36.3 - 47.1 % [employer] Phone: Hemoglobin (Bld) [Mass/Vol] 11.1 g/dL Low 11.9 - 15.1 g/dL [employer] Phone: Immature granulocytes (Bld) [#/Vol] 10*3/uL [employer] Phone: Immature granulocytes (Bld) [#/Vol] 0 % 0 [employer] Phone: Interpretation and review of laboratory results Abnormal [employer] Phone: Lymphocytes (Bld) [#/Vol] 1.74 10*3/uL [employer] Phone: Lymphocytes/100 WBC (Bld) 23 % Low 24 - 43 % [employer] Phone: MCH (RBC) [Entitic mass] 29.6 pg 25. 2 - 33.5 pg [employer] Phone: MCHC (RBC) [Mass/Vol] 30.1 g/dL 28.4 - 34.8 g/dL [employer] Phone: MCV (RBC) [Entitic vol] 98.4 fL 82.6 - 102.9 fL [employer] Phone: Monocytes (Bld) [#/Vol] 0.76 10*3/uL [employer] Phone: Monocytes/100 WBC (Bld) 10 % 3 - 12 % [employer] Phone: Platelet mean volume (Bld) [Entitic vol] 9.9 fL 8.1 - 13.5 fL [employer] Phone: Platelets (Bld) [#/Vol] NOT REPORTED [employer] Phone: Platelets (Bld) [#/Vol] 344 10*3/uL [employer] Phone: RBC (Bld) [#/Vol] 3.75 10*6/uL Low 3.95 - 5.1 1 m/uL [employer] Phone: RBC morphology finding Nom (Bld) NOT REPORTED [employer] Phone: Segmented neutrophils/100 WBC (Bld) 62 % 36 - 65 % [facility] Phone: Segs Absolute 4.61 [facility] Phone: WBC (Bld) [#/Vol] 7.5 10*3/uL [facility] Phone: WBC (Bld) [#/Vol] 0.0 10*3/uL 0.0 per 10 0 WBC [facility] Phone: WBC Morphology NOT REPORTED [facility] Phone: CBC with Diffon 11-07-2020 Abs. Basophil <0.03 Normal 0.00-0.20 [facility] Comment on above: Performed By: #### C DP, SED #### [facility] [address] [place] [address] [address] [place] [phone] Robotic Welder: Loi Irene MD #### CRP #### [id number] Robotic Welder: Dg Aparicio MD Abs.Imm.Granulocyte <0.03 Normal 0.00-0.30 [facility] Comment on above: Performed By: #### C DP, SED #### [address] [place] [phone] Robotic Welder: Loi Irene MD #### CRP #### [id number] Robotic Welder: Dg Aparicio MD Abs.Neutrophil (Seg) 4.61 k/uL Normal 1.50-8.10 [facility] Comment on above: Performed By: #### C DP, SED #### [facility] [address] [place] [address] [address] [place] [phone] Robotic Welder: Loi Irene MD #### CRP #### [address] [address] Robotic Welder: Dg Aparicio MD Basophils/100 WBC (Bld) 0 % Normal 0-2 [facility] Comment on above: Performed By: #### C DP, SED #### [facility] [address] [place] [address] [place], [place] [id number] Robotic Welder: Loi Irene MD #### CRP #### [address] [address] Robotic Welder: Dg Aparicio MD Eosinophils (Bld) [#/Vol] 0.37 10*3/uL Normal 0.00-0.44 [facility] Comment on above: Performed By: #### C DP, SED #### [facility] [address] [place] [address] [address]. [place] [phone] Robotic Welder: Loi Irene MD #### CRP #### [address] [address] Robotic Welder: Dg Aparicio MD Eosinophils/100 WBC (Bld) 5 % High 1-4 [facility] Comment on above: Performed By: #### C DP, SED #### [address] [place] [id number] Robotic Welder: Loi Irene MD #### CRP #### [address] [address] Robotic Welder: Dg Aparicio MD Erythrocyte distribution width (RBC) [Ratio] 17.7 % High 11.8-14.4 [facility] Comment on above: Performed By: #### C DP, SED #### [facility] [address] [place] [address] [place] [phone] Robotic Welder: Loi Irene MD #### CRP #### [address] [address] Robotic Welder: Dg Aparicio MD Hematocrit (Bld) [Volume fraction] 36.9 % Normal 36.3-47.1 [facility] Comment on above: Performed By: #### C DP, SED #### [facility] [address] [place] [address] [place] [phone] ( Robotic Welder: Loi Irene MD #### CRP #### [place] [address] Robotic Welder: Dg Aparicio MD Hemoglobin (Bld) [Mass/Vol] 11.1 g/dL Low 11.9-15.1 [facility] Comment on above: Performed By: #### C DP, SED #### [address] [place] [phone] Robotic Welder: Loi Irene MD #### CRP #### [place] [address] Robotic Welder: Dg Aparicio MD Immature granulocytes/100 WBC (Bld) 0 % Normal 0 [facility] Comment on above: Performed By: #### C DP, SED #### [address] [place] [phone] Robotic Welder: Loi Irene MD #### CRP #### [place] [address] Robotic Welder: Dg Aparicio MD Lymphocytes (Bld) [#/Vol] 1.74 10*3/uL Normal 1.10-3.70 [facility] Comment on above: Performed By: #### C DP, SED #### [address] [place] [phone] Robotic Welder: Loi Irene MD #### CRP #### [address] [address] Robotic Welder: Dg Aparicio MD Lymphocytes/100 WBC (Bld) 23 % Low 24-43 [facility] Comment on above: Performed By: #### C DP, SED #### [facility] [address] [place], [place] [id number] Robotic Welder: Loi Irene MD #### CRP #### [address] [address] Robotic Welder: Dg Aparicio MD MCH (RBC) [Entitic mass] 29.6 pg Normal 25.2-33.5 [facility] Comment on above: Performed By: #### C DP, SED #### [facility] [address] [place] [phone] Robotic Welder: Loi Irene MD #### CRP #### [address] [id number] Robotic Welder: Dg Aparicio MD MCHC (RBC) [Mass/Vol] 30.1 g/dL Normal 28.4-34.8 [facility] Comment on above: Performed By: #### C DP, SED #### [facility] [address] [place] [address] [address] [place] [phone] Robotic Welder: Loi Irene MD #### CRP #### [address] [address] Robotic Welder: Dg Aparicio MD MCV (RBC) [Entitic vol] 98.4 fL Normal 82.6-102.9 [facility] Comment on above: Performed By: #### C DP, SED #### [facility] [address] [place] [address] [place]. [place], [place] [phone] Robotic Welder: Loi Irene MD #### CRP #### [address] [address] Robotic Welder: Dg Aparicio MD Monocytes (Bld) [#/Vol] 0.76 10*3/uL Normal 0.10-1.20 [facility] Comment on above: Performed By: #### C DP, SED #### [facility] [address] [place], [place] 479[address] Robotic Welder: Loi Irene MD #### CRP #### [address] [address] Robotic Welder: Dg Aparicio MD Monocytes/100 WBC (Bld) 10 % Normal 3-12 M [facility] Comment on above: Performed By: #### C DP, SED #### [facility] [address] [place], [place] [phone] Robotic Welder: Loi Irene MD #### CRP #### [address] [address] Robotic Welder: Dg Aparicio MD Neutrophil (Seg) 62 % Normal 36-65 [facility] Comment on above: Performed By: #### C DP, SED #### [facility] [address] [place] [address] [place] [address] Robotic Welder: Loi Irene MD #### CRP #### [address] [address] Robotic Welder: Dg Aparicio MD NRBC Automated 0.0 per 100 WBC Normal 0.0 [facility] Comment on above: Performed By: #### C DP, SED #### [facility] [address] [place] [address] [place]. [place], [place] 8010083 Robotic Welder: Loi Irene MD #### CRP #### [address] [address] Robotic Welder: Dg Aparicio MD Platelet mean volume (Bld) [Entitic vol] 9.9 fL Normal 8.1-13.5 [facility] Comment on above: Performed By: #### C DP, SED #### [facility] [address] [place] [address] [place] [address] Robotic Welder: Loi Irene MD #### CRP #### [address] [place] [address] Robotic Welder: Dg Aparicio MD Platelets (Bld) [#/Vol] 344 10*3/uL Normal 138-453 [facility] Comment on above: Performed By: #### C DP, SED #### [address] [place] [phone] ( Robotic Welder: Loi Irene MD #### CRP #### [place] [address] Robotic Welder: Dg Aparicio MD RBC (Bld) [#/Vol] 3.75 10*6/uL Low 3.95-5.11 [facility] Comment on above: Performed By: #### C DP, SED #### [address] [place] [address] Robotic Welder: Loi Irene MD #### CRP #### [place] [address] Robotic Welder: Dg Aparicio MD WBC (Bld) [#/Vol] 7.5 10*3/uL Normal 3.5-11.3 [facility] Comment on above: Performed By: #### C DP, SED #### [address] [place] [address] Robotic Welder: Loi Irene MD #### CRP #### [place] [address] Robotic Welder: Dg Aparicio MD Auto Diff Performed NOT REPORTED Normal [facility] Comment on above: Performed By: #### C DP, SED #### [address] [place] [phone] ( Robotic Welder: Loi Irene MD #### CRP #### [address] [address] Robotic Welder: Dg Aparicio MD Platelet Estimate NOT REPORTED Normal [facility] Comment on above: Performed By: #### C DP, SED #### [facility] [address] [place] [address] [place] [address] Robotic Welder: Loi Irene MD #### CRP #### [address] [address] Robotic Welder: Dg Aparicio MD RBC morphology finding Nom (Bld) NOT REPORTED Normal [facility] Comment on above: Performed By: #### C DP, SED #### [address] [place] [address] Robotic Welder: Loi Irene MD #### CRP #### [address] [address] Robotic Welder: Dg Aparicio MD WBC Morphology NOT REPORTED Normal [facility] Comment on above: Performed By: #### C DP, SED #### [address] [place] [address] Robotic Welder: Loi Irene MD #### CRP #### [address] [address] Robotic Welder: Dg Aparicio MD Sedimentation Rateon 021 Sedimentation Rate 51 mm High 0-20 [facility] Comment on above: Performed By: #### C DP, SED #### [address] [place] [address] Robotic Welder: Loi Irene MD #### CRP #### [address] [address] Robotic Welder: Dg Aparicio MD Interpretation and review of laboratory results Abnormal [facility] Work Phone: Sed Rate 51 mm High 0 - 20 mm [facility] Work Phone: Lipid Panelon 10-30-2020 Cholesterol [Mass/Vol] 147 mg/dL <200 [place], [place] Comment on above: Cholesterol Guidelines: <200 Desirable 200-240 Borderline >240 Undesirable Cholesterol in HDL [Mass/Vol] 50 mg/dL >40 [place] Comment on above: HDL Guidelines: <40 Undesirable 40-59 Borderline >59 Desirable Cholesterol in LDL [Mass/Vol] 64 mg/dL 0 - 130 mg/dL [place] Comment on above: LDL Guidelines: <100 Desirable 100-129 Near to/above Desirable 130-159 Borderline >159 Undesirable Direct (measured) LDL and calculated LDL are not interchangeable tests. Cholesterol in VLDL [Mass/Vol] NOT REPORTED High 1 - 30 mg/dL [place] Cholesterol.total/Choles terol in HDL [Mass ratio] 2.9 {ratio} <5 [place] Interpretation and review of laboratory results Abnormal [place] Triglyceride [Mass/Vol] 166 mg/dL High <150 M [place], [place] Comment on above: Triglyceride Guidelines: <150 Desirable 150-199 Borderline 200-499 High >499 Very high Based on AHA Guidelines for fasting triglyceride, June 2012. Lipid Profileon 10-30-2020 Cholesterol [Mass/Vol] 147 mg/dL Normal <200 [facility] Comment on above: Result Comment: Cholesterol Guidelines: <200 Desirable 200-240 Borderline >240 Undesirable Performed By: #### L IPR #### [facility] [employer] [address] [place] [address] [id number] Robotic Welder: Dg Aparicio MD Cholesterol in HDL [Mass/Vol] 50 mg/dL Normal >40 [facility] Comment on above: Result Comment: HDL Guidelines: <40 Undesirable 40-59 Borderline >59 Desirable Performed By: #### L IPR #### [facility] [employer] [address] [place], [place] [phone] Robotic Welder: Dg Aparicio MD Cholesterol in LDL [Mass/Vol] 64 mg/dL Normal 0-130 [facility] Comment on above: Result Comment: LDL Guidelines: <100 Desirable 100-129 Near to/above Desirable 130-159 Borderline >159 Undesirable Direct (measured) LDL and calculated LDL are not interchangeable tests. Performed By: #### L IPR #### [address] [address] Robotic Welder: Dg Aparicio MD Cholesterol.total/Choles terol in HDL [Mass ratio] 2.9 {ratio} Normal <5 [facility] Comment on above: Performed By: #### L IPR #### [address] [address] Robotic Welder: Dg Aparicio MD Triglyceride [Mass/Vol] 166 mg/dL High <150 M [facility] Comment on above: Result Comment: Triglyceride Guidelines: <150 Desirable 150-199 Borderline 200-499 High >499 Very high Based on AHA Guidelines for fasting triglyceride, June 2012. Performed By: #### L IPR #### [address] [address] Robotic Welder: Dg Aparicio MD Cholesterol,VLDL NOT REPORTED Normal 10-26 [facility] Comment on above: Performed By: #### L IPR #### [address] [address] Robotic Welder: Dg Aparicio MD C-Reactive Proteinon CRP [Mass/Vol] 51.2 mg/L High 0.0-5.0 [facility] Comment on above: Performed By: #### C DP #### [facility] [address] [place] [address] Robotic Welder: Loi Irene MD #### CRP #### [address] [address] Robotic Welder: Dg Aparicio MD CRP [Mass/Vol] 51.2 mg/L High 0 - 5 mg/L [place] Interpretation and review of laboratory results Abnormal [place], [place] CBCon 01-27-2021 Erythrocyte distribution width (RBC) [Ratio] 16.5 % High 11.8-14.4 [facility] Comment on above: Performed By: #### C DP #### [facility] [address] [place] [address] [place] [address] Robotic Welder: Loi Irene MD #### CRP #### [address] [id number] Robotic Welder: Dg Aparicio MD Hematocrit (Bld) [Volume fraction] 32.7 % Low 36.3-47.1 [facility] Comment on above: Performed By: #### C DP #### [address] [place] [address] Robotic Welder: Loi Irene MD #### CRP #### [address] [phone] Robotic Welder: Dg Aparicio MD Hemoglobin (Bld) [Mass/Vol] 10.0 g/dL Low 11.9-15.1 [facility] Comment on above: Performed By: #### C DP #### [address] [place] [address] Robotic Welder: Loi Irene MD #### CRP #### [address] [id number] Robotic Welder: Dg Aparicio MD MCH (RBC) [Entitic mass] 29.0 pg Normal 25.2-33.5 [facility] Comment on above: Performed By: #### C DP #### [facility] [address] [place] [address] [place] [address] Robotic Welder: Loi Irene MD #### CRP #### [address] [id number] Robotic Welder: Dg Aparicio MD MCHC (RBC) [Mass/Vol] 30.6 g/dL Normal 28.4-34.8 [facility] Comment on above: Performed By: #### C DP #### [facility] [address] [place], [place] [phone] Robotic Welder: Loi Irene MD #### CRP #### [address] [id number] Robotic Welder: Dg Aparicio MD MCV (RBC) [Entitic vol] 94.8 fL Normal 82.6-102.9 M [facility] Comment on above: Performed By: #### C DP #### [address] [place], [place] 9794083 Robotic Welder: Loi Irene MD #### CRP #### [address] [id number] Robotic Welder: Dg Aparicio MD NRBC Automated 0.0 per 100 WBC Normal 0.0 [facility] Comment on above: Performed By: #### C DP #### [address] [place], [place] [phone] Robotic Welder: Loi Irene MD #### CRP #### [address] [address] Robotic Welder: Dg Aparicio MD Platelet mean volume (Bld) [Entitic vol] 9.6 fL Normal 8.1-13.5 [facility] Comment on above: Performed By: #### C DP #### [facility] [address] [place] [address] [place] [address] Robotic Welder: Loi Irene MD #### CRP #### [address] [address] Robotic Welder: Dg Aparicio MD Platelets (Bld) [#/Vol] 478 10*3/uL High 138-453 [facility] Comment on above: Performed By: #### C DP #### [facility] [address] [place] [address] [place]. [place], [place] [phone] Robotic Welder: Loi Irene MD #### CRP #### [address] [place], [place] [id number] Robotic Welder: Dg Aparicio MD RBC (Bld) [#/Vol] 3.45 10*6/uL Low 3.95-5.11 [facility] Comment on above: Performed By: #### C DP #### [facility] [address] [place] [address] [place] [address] Robotic Welder: Loi Irene MD #### CRP #### [address] [place], [place] [id number] Robotic Welder: Dg Aparicio MD WBC (Bld) [#/Vol] 8.2 10*3/uL Normal 3.5-11.3 [facility] Comment on above: Performed By: #### C DP #### [address] [place], [place] [id number] Robotic Welder: Loi Irene MD #### CRP #### [address] [place], [place] [phone] Robotic Welder: Dg Aparicio MD Erythrocyte distribution width (RBC) [Ratio] 16.5 % High 11.8 - 14.4 % [place] Hematocrit (Bld) [Volume fraction] 32.7 % Low 36.3 - 47.1 % [place] Hemoglobin (Bld) [Mass/Vol] 10.0 g/dL Low 11.9 - 15.1 g/dL [place] Interpretation and review of laboratory results Abnormal [place] MCH (RBC) [Entitic mass] 29.0 pg 25. 2 - 33.5 pg [place] MCHC (RBC) [Mass/Vol] 30.6 g/dL 28.4 - 34.8 g/dL [place] MCV (RBC) [Entitic vol] 94.8 fL 82.6 - 102.9 fL [place] Platelet mean volume (Bld) [Entitic vol] 9.6 fL 8.1 - 13.5 fL [place] Platelets (Bld) [#/Vol] 478 10*3/uL High [place] RBC (Bld) [#/Vol] 3.45 10*6/uL Low 3.95 - 5.1 1 m/uL [place] WBC (Bld) [#/Vol] 8.2 10*3/uL [place] WBC (Bld) [#/Vol] 0.0 10*3/uL 0.0 per 10 0 WBC [place] Comp Metabolic Profon 2020 (cont.) Normal [facility] Comment on above: Result Comment: Aver age GFR for 70 or more years old: 75 mL/min/1.73sq m Chronic Kidney Disease: <60 mL/min/1.73sq m Kidney failure: <15 mL/min/1.73sq m eGFR calculated using average adult body mass. Additional eGFR calculator available at: http://www.Velocomp.BrieFix/multiple_crcl_2011.htm Performed By: #### C DP #### [facility] [address] [place] [address] [place] [address] Robotic Welder: Loi Irene MD #### CRP #### [address] [address] Robotic Welder: Dg Aparicio MD Albumin [Mass/Vol] 3.0 g/dL Low 3.5-5.2 [facility] Comment on above: Performed By: #### C DP #### [facility] [address] [place] [address] [place] [address] Robotic Welder: Loi Irene MD #### CRP #### [address] [id number] Robotic Welder: Dg Aparicio MD Albumin/Glob Ratio 0.8 Low 1.0-2.5 [facility] Comment on above: Performed By: #### C DP #### [facility] [address] [place] [address] Robotic Welder: Loi Irene MD #### CRP #### [facility] [address] [place] [address] Robotic Welder: Dg Aparicio MD Alkaline Phos 105 U/L High 35-104 [facility] Comment on above: Performed By: #### C DP #### [facility] [address] [place] [address] Robotic Welder: Loi Irene MD #### CRP #### [address] [address] Robotic Welder: Dg Aparicio MD ALT [Catalytic activity/Vol] 11 U/L Normal 5-33 [facility] Comment on above: Performed By: #### C DP #### [facility] [address] [place] [address] [place] [address] Robotic Welder: Loi Irene MD #### CRP #### [address] [address] Robotic Welder: Dg Aparicio MD Anion gap [Moles/Vol] 11 mmol/L Normal 9-17 [facility] Comment on above: Performed By: #### C DP #### [facility] [address] [place] [address] Robotic Welder: Loi Irene MD #### CRP #### [address] [place] [address] Robotic Welder: Dg Aparicio MD AST [Catalytic activity/Vol] 14 U/L Normal <32 [facility] Comment on above: Performed By: #### C DP #### [facility] [address] [place], [place] [phone] Robotic Welder: Loi Irene MD #### CRP #### [facility] [address] [place] [address] Robotic Welder: Dg Aparicio MD Bilirubin [Mass/Vol] 0.24 mg/dL Low 0.3-1.2 [facility] Comment on above: Performed By: #### C DP #### [facility] [address] [place], [place] [id number] Robotic Welder: Loi Irene MD #### CRP #### [address] [address] Robotic Welder: Dg Aparicio MD BUN/CRE Ratio 22 High 9-20 [facility] Comment on above: Performed By: #### C DP #### [facility] [address] [place] [address] [address], [place] [id number] Robotic Welder: Loi Irene MD #### CRP #### [address] [address] Robotic Welder: Dg Aparicio MD Calcium [Mass/Vol] 8.9 mg/dL Normal 8.6-10.4 [facility] Comment on above: Performed By: #### C DP #### [facility] [address] [place] [address] [place] [address] Robotic Welder: Loi Irene MD #### CRP #### [address] [address] Robotic Welder: Dg Aparicio MD Chloride [Moles/Vol] 99 mmol/L Normal 98-107 [facility] Comment on above: Performed By: #### C DP #### [facility] [address] [place] [address] [place] [address] Robotic Welder: Loi Irene MD #### CRP #### [address] [address] Robotic Welder: Dg Aparicio MD CO2 [Moles/Vol] 28 mmol/L Normal 20-31 [facility] Comment on above: Performed By: #### C DP #### [facility] [address] [place], [place] [id number] Robotic Welder: Loi Irene MD #### CRP #### [address] [address] Robotic Welder: Dg Aparicio MD Creatinine [Mass/Vol] 1.27 mg/dL High 0.50-0.90 [facility] Comment on above: Performed By: #### C DP #### [facility] [address] [place], [place] [id number] Robotic Welder: Loi Irene MD #### CRP #### [address] [address] Robotic Welder: Dg Aparicio MD GFR, Amer 49 mL/min Low >60 [facility] Comment on above: Performed By: #### C DP #### [facility] [address] [place], [place] [id number] Robotic Welder: Loi Irene MD #### CRP #### [address] [address] Robotic Welder: Dg Aparicio MD GFR,non Amer 40 mL/min Low >60 [facility] Comment on above: Performed By: #### C DP #### [facility] [address] [place] [address] Robotic Welder: Loi Irene MD #### CRP #### [address] [address] Robotic Welder: Dg Aparicio MD Glucose [Mass/Vol] 159 mg/dL High 70-99 [facility] Comment on above: Performed By: #### C DP #### [facility] [address] [place] [address] [place] [id number] Robotic Welder: Loi Irene MD #### CRP #### [address] [id number] Robotic Welder: Dg Aparicio MD Potassium [Moles/Vol] 3.3 mmol/L Low 3.7-5.3 [facility] Comment on above: Performed By: #### C DP #### [facility] [address] [place] [address] [place] [id number] Robotic Welder: Loi Irene MD #### CRP #### [address] [address] Robotic Welder: Dg Aparicio MD Protein [Mass/Vol] 6.7 g/dL Normal 6.4-8.3 [facility] Comment on above: Performed By: #### C DP #### [address] [place] [phone] Robotic Welder: Loi Irene MD #### CRP #### [address] [address] Robotic Welder: Dg Aparicio MD Sodium [Moles/Vol] 138 mmol/L Normal 135-144 [facility] Comment on above: Performed By: #### C DP #### [address] [place] [phone] Robotic Welder: Loi Irene MD #### CRP #### [address] [address] Robotic Welder: Dg Aparicio MD Staging: Normal [facility] Comment on above: Result Comment: Stag e 1: Some kidney damage normal GFR Stage 2: Mild kidney damage GFR 60-89 Stage 3: Moderate kidney damage GFR 30-59 Stage 4: Severe kidney damage GFR 15-29 Stage 5: Severe kidney damage GFR <15 ESRD - chronic treatment by dialysis or transplant Performed By: #### C DP #### [facility] [address] [place], [place] [id number] Robotic Welder: Loi Irene MD #### CRP #### [facility] [address] [place], [place] [id number] Robotic Welder: Dg Aparicio MD Urea nitrogen [Mass/Vol] 28 mg/dL High 8-23 [facility] Comment on above: Performed By: #### C DP #### [facility] [address] [place], [place] [phone] Robotic Welder: Loi Irene MD #### CRP #### [facility] [address] [place], [place] [id number] Robotic Welder: Dg Aparicio MD Comprehensive Metabolic Pane [facility] 10-23-2020 Albumin [Mass/Vol] 3 g/dL Low 3.5 - 5.2 g/dL [place] Albumin/Globulin [Mass ratio] 0.8 {ratio} [place] ALP [Catalytic activity/Vol] 105 U/L High 35 - 104 U/L [place] ALT [Catalytic activity/Vol] 11 U/L 5 - 33 U/L [place] Anion gap [Moles/Vol] 11 mmol/L 9 - 17 mmol/L [place] AST [Catalytic activity/Vol] 14 U/L <32 [place] Bilirubin Ql (U) 0.24 mg/dL Low 0.3 - 1.2 mg/dL [place] Bun/Cre Ratio 22 High [place] Calcium [Mass/Vol] 8.9 mg/dL 8.6 - 10. 4 mg/dL [place] Chloride [Moles/Vol] 99 mmol/L 98 - 10 7 mmol/L [place] CO2 [Moles/Vol] 28 mmol/L 20 - 31 mmol/L [place] Creatinine [Mass/Vol] 1.27 mg/dL High 0.5 - 0.9 mg/dL [place] GFR 49 mL/min Low >60 [place] GFR Non- 40 mL/min Low >60 [place] Glucose [Mass/Vol] 159 mg/dL High 70 - 99 mg/dL [place] Interpretation and review of laboratory results Abnormal [place] Potassium [Moles/Vol] 3.3 mmol/L Low 3.7 - 5.3 mmol/L [place] Protein [Mass/Vol] 6.7 g/dL 6.4 - 8.3 g/dL [place] Sodium [Moles/Vol] 138 mmol/L 135 - 144 mmol/L [place] Urea nitrogen [Mass/Vol] 28 mg/dL High 8 - 23 mg/dL [place] Metabolic Panelon 10-23-2020 GFR/1.73 sq M predicted among non-blacks MDRD (S/P/Bld) [Vol rate/Area] [place] Comment on above: Average GFR for 70 o r more years old: 75 mL/min/1.73sq m Chronic Kidney Disease: <60 mL/min/1.73sq m Kidney failure: <15 mL/min/1.73sq m eGFR calculated using average adult body mass. Additional eGFR calculator available at: http://www.[employer]Asset/multiple_crcl_2011.htm Stage 1: Some kidney damage normal GFR Stage 2: Mild kidney damage GFR 60-89 Stage 3: Moderate kidney damage GFR 30-59 Stage 4: Severe kidney damage GFR 15-29 Stage 5: Severe kidney damage GFR <15 ESRD - chronic treatment by dialysis or transplant Sedimentation Rateon 021 Sedimentation Rate 101 mm High 0-20 [facility] Comment on above: Performed By: #### C DP #### [facility] [address] [place] [address] Robotic Welder: Loi Irene MD #### CRP #### [facility] [address] [place] [address] Robotic Welder: Dg Aparicio MD Interpretation and review of laboratory results Abnormal [place] Sed Rate 101 mm High 0 - 20 mm [place] C-Reactive Proteinon 020 CRP [Mass/Vol] 33.8 mg/L High 0 - 5 mg/L [place] Interpretation and review of laboratory results Abnormal [place] CBCon 09-26-2020 Erythrocyte distribution width (RBC) [Ratio] 14.3 % 11.8 - 14.4 % [place] Hematocrit (Bld) [Volume fraction] 38.8 % 36.3 - 47.1 % [place] Hemoglobin (Bld) [Mass/Vol] 11.8 g/dL Low 11.9 - 15.1 g/dL [place] Interpretation and review of laboratory results Abnormal [place] MCH (RBC) [Entitic mass] 28.5 pg 25. 2 - 33.5 pg [place] MCHC (RBC) [Mass/Vol] 30.4 g/dL 28.4 - 34.8 g/dL [place] MCV (RBC) [Entitic vol] 93.7 fL 82.6 - 102.9 fL [place] Platelet mean volume (Bld) [Entitic vol] 9.9 fL 8.1 - 13.5 fL [place] Platelets (Bld) [#/Vol] 230 10*3/uL [place] RBC (Bld) [#/Vol] 4.14 10*6/uL 3.95 - 5.1 1 m/uL [place] WBC (Bld) [#/Vol] 6.9 10*3/uL [place] WBC (Bld) [#/Vol] 0.0 10*3/uL 0.0 per 10 0 WBC [place] Comprehensive Metabolic Pane riddhi 09-26-2020 Albumin [Mass/Vol] 3.4 g/dL Low 3.5 - 5.2 g/dL [place] Albumin/Globulin [Mass ratio] 1.0 {ratio} [place] ALP [Catalytic activity/Vol] 131 U/L High 35 - 104 U/L [place] ALT [Catalytic activity/Vol] 23 U/L 5 - 33 U/L [place] Anion gap [Moles/Vol] 13 mmol/L 9 - 17 mmol/L [place] AST [Catalytic activity/Vol] 21 U/L <32 [place] Bilirubin Ql (U) 0.36 mg/dL 0.3 - 1.2 mg/dL [place] Bun/Cre Ratio 24 High [place] Calcium [Mass/Vol] 8.7 mg/dL 8.6 - 10. 4 mg/dL [place] Chloride [Moles/Vol] 96 mmol/L Low 98 - 10 7 mmol/L [place] CO2 [Moles/Vol] 28 mmol/L 20 - 31 mmol/L [place] Creatinine [Mass/Vol] 1.27 mg/dL High 0.5 - 0.9 mg/dL [place] GFR 49 mL/min Low >60 [place] GFR Non- 40 mL/min Low >60 [place] Glucose [Mass/Vol] 138 mg/dL High 70 - 99 mg/dL [place] Interpretation and review of laboratory results Abnormal [place] Potassium [Moles/Vol] 3.4 mmol/L Low 3.7 - 5.3 mmol/L [place] Protein [Mass/Vol] 6.7 g/dL 6.4 - 8.3 g/dL [place] Sodium [Moles/Vol] 137 mmol/L 135 - 144 mmol/L [place] Urea nitrogen [Mass/Vol] 31 mg/dL High 8 - 23 mg/dL [place] Magnesiumon 09-26-2020 Magnesium [Mass/Vol] 2.1 mg/dL 1.6 - 2 .6 mg/dL [place] Metabolic Panelon 09-26-2020 GFR/1.73 sq M predicted among non-blacks MDRD (S/P/Bld) [Vol rate/Area] [place] Comment on above: Average GFR for 70 o r more years old: 75 mL/min/1.73sq m Chronic Kidney Disease: <60 mL/min/1.73sq m Kidney failure: <15 mL/min/1.73sq m eGFR calculated using average adult body mass. Additional eGFR calculator available at: http://www.[employer]/multiple_crcl_2012.htm Stage 1: Some kidney damage normal GFR Stage 2: Mild kidney damage GFR 60-89 Stage 3: Moderate kidney damage GFR 30-59 Stage 4: Severe kidney damage GFR 15-29 Stage 5: Severe kidney damage GFR <15 ESRD - chronic treatment by dialysis or transplant Sedimentation Rateon Interpretation and review of laboratory results Abnormal [place] Sed Rate 53 mm High 0 - 20 mm [place] C-Reactive Proteinon CRP [Mass/Vol] 43.7 mg/L High 0 - 5 mg/L [place] Interpretation and review of laboratory results Abnormal [place] CBCon 09-18-2020 Erythrocyte distribution width (RBC) [Ratio] 14.0 % 11.8 - 14.4 % [place] Hematocrit (Bld) [Volume fraction] 37.2 % 36.3 - 47.1 % [place] Hemoglobin (Bld) [Mass/Vol] 11.4 g/dL Low 11.9 - 15.1 g/dL [place] Interpretation and review of laboratory results Abnormal [place] MCH (RBC) [Entitic mass] 29.2 pg 25. 2 - 33.5 pg [place] MCHC (RBC) [Mass/Vol] 30.6 g/dL 28.4 - 34.8 g/dL [place] MCV (RBC) [Entitic vol] 95.4 fL 82.6 - 102.9 fL [place] Platelet mean volume (Bld) [Entitic vol] 10.6 fL 8.1 - 13.5 fL [place] Platelets (Bld) [#/Vol] 254 10*3/uL [place] RBC (Bld) [#/Vol] 3.90 10*6/uL Low 3.95 - 5.1 1 m/uL [place] WBC (Bld) [#/Vol] 8.3 10*3/uL [place] WBC (Bld) [#/Vol] 0.0 10*3/uL 0.0 per 10 0 WBC [place] Comprehensive Metabolic Pane riddhi 09-18-2020 Albumin [Mass/Vol] 3.3 g/dL Low 3.5 - 5.2 g/dL [place] Albumin/Globulin [Mass ratio] 1.1 {ratio} [place] ALP [Catalytic activity/Vol] 137 U/L High 35 - 104 U/L [place] ALT [Catalytic activity/Vol] 14 U/L 5 - 33 U/L [place] Anion gap [Moles/Vol] 8 mmol/L Low 9 - 17 mmol/L [place] AST [Catalytic activity/Vol] 12 U/L <32 [place] Bilirubin Ql (U) 0.27 mg/dL Low 0.3 - 1.2 mg/dL [place] Bun/Cre Ratio 30 High [place] Calcium [Mass/Vol] 8.9 mg/dL 8.6 - 10. 4 mg/dL [place] Chloride [Moles/Vol] 95 mmol/L Low 98 - 10 7 mmol/L [place] CO2 [Moles/Vol] 30 mmol/L 20 - 31 mmol/L [place] Creatinine [Mass/Vol] 1.21 mg/dL High 0.5 - 0.9 mg/dL [place] GFR 52 mL/min Low >60 [place] GFR Non- 42 mL/min Low >60 [place] Glucose [Mass/Vol] 206 mg/dL High 70 - 99 mg/dL [place] Interpretation and review of laboratory results Abnormal [place] Potassium [Moles/Vol] 2.9 mmol/L Critically low 3.7 - 5.3 mmol/L [place] Protein [Mass/Vol] 6.4 g/dL 6.4 - 8.3 g/dL [place] Sodium [Moles/Vol] 133 mmol/L Low 135 - 144 mmol/L [place] Urea nitrogen [Mass/Vol] 36 mg/dL High 8 - 23 mg/dL [place] Metabolic Panelon 09-18-2020 GFR/1.73 sq M predicted among non-blacks MDRD (S/P/Bld) [Vol rate/Area] [place] Comment on above: Average GFR for 70 o r more years old: 75 mL/min/1.73sq m Chronic Kidney Disease: <60 mL/min/1.73sq m Kidney failure: <15 mL/min/1.73sq m eGFR calculated using average adult body mass. Additional eGFR calculator available at: http://www.[employer]/multiple_crcl_2011.htm Stage 1: Some kidney damage normal GFR Stage 2: Mild kidney damage GFR 60-89 Stage 3: Moderate kidney damage GFR 30-59 Stage 4: Severe kidney damage GFR 15-29 Stage 5: Severe kidney damage GFR <15 ESRD - chronic treatment by dialysis or transplant Sedimentation Rateon 020 Interpretation and review of laboratory results Abnormal [place] Sed Rate 37 mm High 0 - 20 mm [place] C-Reactive Proteinon CRP [Mass/Vol] 17.9 mg/L High 0 - 5 mg/L [place] Interpretation and review of laboratory results Abnormal [place] CBCon 09-11-2020 Erythrocyte distribution width (RBC) [Ratio] 13.8 % 11.8 - 14.4 % [place] Hematocrit (Bld) [Volume fraction] 37.9 % 36.3 - 47.1 % [place] Hemoglobin (Bld) [Mass/Vol] 11.4 g/dL Low 11.9 - 15.1 g/dL [place] Interpretation and review of laboratory results Abnormal [place] MCH (RBC) [Entitic mass] 28.4 pg 25. 2 - 33.5 pg [place] MCHC (RBC) [Mass/Vol] 30.1 g/dL 28.4 - 34.8 g/dL [place] MCV (RBC) [Entitic vol] 94.5 fL 82.6 - 102.9 fL [place] Platelet mean volume (Bld) [Entitic vol] 10.7 fL 8.1 - 13.5 fL [place] Platelets (Bld) [#/Vol] 269 10*3/uL [place] RBC (Bld) [#/Vol] 4.01 10*6/uL 3.95 - 5.1 1 m/uL [place] WBC (Bld) [#/Vol] 0.0 10*3/uL 0.0 per 10 0 WBC [place] WBC (Bld) [#/Vol] 7.1 10*3/uL [place] Comprehensive Metabolic Pane riddhi 09-11-2020 Albumin [Mass/Vol] 3.8 g/dL 3.5 - 5.2 g/dL [place] Albumin/Globulin [Mass ratio] 1.7 {ratio} [place] ALP [Catalytic activity/Vol] 145 U/L High 35 - 104 U/L [place] ALT [Catalytic activity/Vol] 14 U/L 5 - 33 U/L [place] Anion gap [Moles/Vol] 13 mmol/L 9 - 17 mmol/L [place] AST [Catalytic activity/Vol] 12 U/L <32 [place] Bilirubin Ql (U) 0.28 mg/dL Low 0.3 - 1.2 mg/dL [place] Bun/Cre Ratio 35 High [place] Calcium [Mass/Vol] 9.3 mg/dL 8.6 - 10. 4 mg/dL [place] Chloride [Moles/Vol] 98 mmol/L 98 - 10 7 mmol/L [place] CO2 [Moles/Vol] 28 mmol/L 20 - 31 mmol/L [place] Creatinine [Mass/Vol] 1.33 mg/dL High 0.5 - 0.9 mg/dL [place] GFR 46 mL/min Low >60 [place] GFR Non- 38 mL/min Low >60 [place] Glucose [Mass/Vol] 150 mg/dL High 70 - 99 mg/dL [place] Interpretation and review of laboratory results Abnormal [place] Potassium [Moles/Vol] 3.0 mmol/L Low 3.7 - 5.3 mmol/L [place] Protein [Mass/Vol] 6.1 g/dL Low 6.4 - 8.3 g/dL [place] Sodium [Moles/Vol] 139 mmol/L 135 - 144 mmol/L [place] Urea nitrogen [Mass/Vol] 46 mg/dL High 8 - 23 mg/dL [place] Metabolic Panelon 09-11-2020 GFR/1.73 sq M predicted among non-blacks MDRD (S/P/Bld) [Vol rate/Area] [place] Comment on above: Average GFR for 70 o r more years old: 75 mL/min/1.73sq m Chronic Kidney Disease: <60 mL/min/1.73sq m Kidney failure: <15 mL/min/1.73sq m eGFR calculated using average adult body mass. Additional eGFR calculator available at: http://www.[employer]/multiple_crcl_2012.htm Stage 1: Some kidney damage normal GFR Stage 2: Mild kidney damage GFR 60-89 Stage 3: Moderate kidney damage GFR 30-59 Stage 4: Severe kidney damage GFR 15-29 Stage 5: Severe kidney damage GFR <15 ESRD - chronic treatment by dialysis or transplant Sedimentation Rateon 020 Interpretation and review of laboratory results Abnormal [place] Sed Rate 34 mm High 0 - 20 mm [place] C-Reactive Proteinon 020 CRP [Mass/Vol] 11.1 mg/L High 0 - 5 mg/L [place] Interpretation and review of laboratory results Abnormal [place] Comprehensive Metabolic Pane riddhi 09-06-2020 Albumin [Mass/Vol] 3.8 g/dL 3.5 - 5.2 g/dL [place] Albumin/Globulin [Mass ratio] 1.2 {ratio} [place] ALP [Catalytic activity/Vol] 149 U/L High 35 - 104 U/L [place] ALT [Catalytic activity/Vol] 18 U/L 5 - 33 U/L [place] Anion gap [Moles/Vol] 13 mmol/L 9 - 17 mmol/L [place] AST [Catalytic activity/Vol] 18 U/L <32 [place] Bilirubin Ql (U) 0.28 mg/dL Low 0.3 - 1.2 mg/dL [place] Bun/Cre Ratio 33 High [place] Calcium [Mass/Vol] 9.8 mg/dL 8.6 - 10. 4 mg/dL [place] Chloride [Moles/Vol] 97 mmol/L Low 98 - 10 7 mmol/L [place] CO2 [Moles/Vol] 28 mmol/L 20 - 31 mmol/L [place] Creatinine [Mass/Vol] 1.33 mg/dL High 0.5 - 0.9 mg/dL [place] GFR 46 mL/min Low >60 [place] GFR Non- 38 mL/min Low >60 [place] Glucose [Mass/Vol] 209 mg/dL High 70 - 99 mg/dL [place] Interpretation and review of laboratory results Abnormal [place] Potassium [Moles/Vol] 3.0 mmol/L Low 3.7 - 5.3 mmol/L [place] Protein [Mass/Vol] 7.0 g/dL 6.4 - 8.3 g/dL [place] Sodium [Moles/Vol] 138 mmol/L 135 - 144 mmol/L [place] Urea nitrogen [Mass/Vol] 44 mg/dL High 8 - 23 mg/dL [place] Metabolic Panelon 09-06-2020 GFR/1.73 sq M predicted among non-blacks MDRD (S/P/Bld) [Vol rate/Area] [place] Comment on above: Stage 1: Some [...] body mass. Additional eGFR calculator available at: http://www.[employer]/multiple_crcl_2012.htm CBCon 09-05-2020 Erythrocyte distribution width (RBC) [Ratio] 13.9 % 11.8 - 14.4 % [place] Hematocrit (Bld) [Volume fraction] 39.5 % 36.3 - 47.1 % [place] Hemoglobin (Bld) [Mass/Vol] 12.0 g/dL 11.9 - 15.1 g/dL [place] MCH (RBC) [Entitic mass] 29.0 pg 25. 2 - 33.5 pg [place] MCHC (RBC) [Mass/Vol] 30.4 g/dL 28.4 - 34.8 g/dL [place] MCV (RBC) [Entitic vol] 95.4 fL 82.6 - 102.9 fL [place] Platelet mean volume (Bld) [Entitic vol] 10.3 fL 8.1 - 13.5 fL [place] Platelets (Bld) [#/Vol] 295 10*3/uL [place] RBC (Bld) [#/Vol] 4.14 10*6/uL 3.95 - 5.1 1 m/uL [place] WBC (Bld) [#/Vol] 7.8 10*3/uL [place] WBC (Bld) [#/Vol] 0.0 10*3/uL 0.0 per 10 0 WBC [place] Comprehensive Metabolic Pane riddhi 09-05-2020 Albumin [Mass/Vol] 3.9 g/dL 3.5 - 5.2 g/dL [place] Albumin/Globulin [Mass ratio] 1.3 {ratio} [place] ALP [Catalytic activity/Vol] 143 U/L High 35 - 104 U/L [place] ALT [Catalytic activity/Vol] 15 U/L 5 - 33 U/L [place] Anion gap [Moles/Vol] 12 mmol/L 9 - 17 mmol/L [place] AST [Catalytic activity/Vol] 17 U/L <32 [place] Bilirubin Ql (U) 0.32 mg/dL 0.3 - 1.2 mg/dL [place] Bun/Cre Ratio 39 High [place] Calcium [Mass/Vol] 9.5 mg/dL 8.6 - 10. 4 mg/dL [place] Chloride [Moles/Vol] 100 mmol/L 98 - 10 7 mmol/L [place] CO2 [Moles/Vol] 29 mmol/L 20 - 31 mmol/L [place] Creatinine [Mass/Vol] 1.29 mg/dL High 0.5 - 0.9 mg/dL [place] GFR 48 mL/min Low >60 [place] GFR Non- 39 mL/min Low >60 [place] Glucose [Mass/Vol] 191 mg/dL High 70 - 99 mg/dL [place] Interpretation and review of laboratory results Abnormal [place] Potassium [Moles/Vol] 3.3 mmol/L Low 3.7 - 5.3 mmol/L [place] Protein [Mass/Vol] 7.0 g/dL 6.4 - 8.3 g/dL [place] Sodium [Moles/Vol] 141 mmol/L 135 - 144 mmol/L [place] Urea nitrogen [Mass/Vol] 50 mg/dL High 8 - 23 mg/dL [place] Metabolic Panelon 09-05-2020 GFR/1.73 sq M predicted among non-blacks MDRD (S/P/Bld) [Vol rate/Area] [place] Comment on above: Stage 1: Some [...] body mass. Additional eGFR calculator available at: http://www.[employer]/multiple_crcl_2012.htm Sedimentation Rateon Interpretation and review of laboratory results Abnormal [place] Sed Rate 38 mm High 0 - 20 mm [place] C-Reactive Proteinon CRP [Mass/Vol] 9.3 mg/L High 0 - 5 mg/L [place] Interpretation and review of laboratory results Abnormal [place] CBCon 08-28-2020 Erythrocyte distribution width (RBC) [Ratio] 13.5 % 11.8 - 14.4 % [place] Hematocrit (Bld) [Volume fraction] 37.9 % 36.3 - 47.1 % [place] Hemoglobin (Bld) [Mass/Vol] 11.9 g/dL 11.9 - 15.1 g/dL [place] MCH (RBC) [Entitic mass] 29.3 pg 25. 2 - 33.5 pg [place] MCHC (RBC) [Mass/Vol] 31.4 g/dL 28.4 - 34.8 g/dL [place] MCV (RBC) [Entitic vol] 93.3 fL 82.6 - 102.9 fL [place] Platelet mean volume (Bld) [Entitic vol] 10.1 fL 8.1 - 13.5 fL [place] Platelets (Bld) [#/Vol] 303 10*3/uL [place] RBC (Bld) [#/Vol] 4.06 10*6/uL 3.95 - 5.1 1 m/uL [place] WBC (Bld) [#/Vol] 6.9 10*3/uL [place] WBC (Bld) [#/Vol] 0.0 10*3/uL 0.0 per 10 0 WBC [place] Comprehensive Metabolic Pane riddhi 08-28-2020 Albumin [Mass/Vol] 3.5 g/dL 3.5 - 5.2 g/dL [place] Albumin/Globulin [Mass ratio] 1.2 {ratio} [place] ALP [Catalytic activity/Vol] 134 U/L High 35 - 104 U/L [place] ALT [Catalytic activity/Vol] 12 U/L 5 - 33 U/L [place] Anion gap [Moles/Vol] 11 mmol/L 9 - 17 mmol/L [place] AST [Catalytic activity/Vol] 14 U/L <32 [place] Bilirubin Ql (U) 0.22 mg/dL Low 0.3 - 1.2 mg/dL [place] Bun/Cre Ratio 38 High [place] Calcium [Mass/Vol] 9.1 mg/dL 8.6 - 10. 4 mg/dL [place] Chloride [Moles/Vol] 105 mmol/L 98 - 10 7 mmol/L [place] CO2 [Moles/Vol] 27 mmol/L 20 - 31 mmol/L [place] Creatinine [Mass/Vol] 1.13 mg/dL High 0.5 - 0.9 mg/dL [place] GFR 56 mL/min Low >60 [place] GFR Non- 46 mL/min Low >60 [place] Glucose [Mass/Vol] 174 mg/dL High 70 - 99 mg/dL [place] Interpretation and review of laboratory results Abnormal [place] Potassium [Moles/Vol] 3.5 mmol/L Low 3.7 - 5.3 mmol/L [place] Protein [Mass/Vol] 6.4 g/dL 6.4 - 8.3 g/dL [place] Sodium [Moles/Vol] 143 mmol/L 135 - 144 mmol/L [place] Urea nitrogen [Mass/Vol] 43 mg/dL High 8 - 23 mg/dL [place] Metabolic Panelon 08-28-2020 GFR/1.73 sq M predicted among non-blacks MDRD (S/P/Bld) [Vol rate/Area] [place] Comment on above: Average GFR for 70 o r more years old: 75 mL/min/1.73sq m Chronic Kidney Disease: <60 mL/min/1.73sq m Kidney failure: <15 mL/min/1.73sq m eGFR calculated using average adult body mass. Additional eGFR calculator available at: http://www.[employer]/multiple_crcl_2012.htm Stage 1: Some kidney damage normal GFR Stage 2: Mild kidney damage GFR 60-89 Stage 3: Moderate kidney damage GFR 30-59 Stage 4: Severe kidney damage GFR 15-29 Stage 5: Severe kidney damage GFR <15 ESRD - chronic treatment by dialysis or transplant Sedimentation Rateon 020 Interpretation and review of laboratory results Abnormal [place] Sed Rate 30 mm High 0 - 20 mm [place] Infectious Disease Office/Cl inic Noteon 08-27-2020 [...] Manuel Ibarra MD 08/29/20 09:08 EST Normal [facility] Microscopic Urinalysison Amorphous, UA NOT REPORTED None [facility] [place], [place] Bacteria, UA 4+ Abnormal None [facility] [place] Casts UA NOT REPORTED /LPF [facility] Crystals, UA 10 TO 20 Abnormal None /HPF [facility] [place] Crystals, UA TRIPLE PHOSPHATE Abnormal None /HPF [facility] [place] Epithelial Cells UA 5 TO 10 [facility] Interpretation and review of laboratory results Abnormal [facility] Mucus, UA NOT REPORTED None [facility] Other Observations UA NOT REPORTED NOT REQ. M [facility] RBC (U) [#/Vol] 20 TO 50 [facility] [place] Renal Epithelial, UA NOT REPORTED 0 /HPF [facility] [place] Trichomonas, UA NOT REPORTED None [facility] WBC, UA GREATER THAN 100 [facility] Yeast, UA NOT REPORTED None [facility] - [facility] Provider Letteron 08-27-2020 Provider Letter Justino Dhaliwal DO [address] [place] [address] Re: Jesús Nolan Date of Visit: 08/27/[address] Dhaliwal, Thank you for your referral to my office. Attached you will find the most recent office visit note. Please call if you have any questions or concerns. Sincerely, Manuel Ibarra MD [address] [place] [id number] The following document(s) were included in the letter: August 27, 2020 15:16:22 EST - (08/27/2020) Telehealth Office Visit Note Normal [facility] Urinalysison 08-27-2020 Bilirubin Urine Negative NEGATIVE [facility] Color, UA YELLOW YELLOW [facility] Glucose, Ur Negative NEGATIVE [facility] Interpretation and review of laboratory results Abnormal [facility] Ketones Ql (U) Negative NEGATIVE [facility] Leukocyte esterase Test strip Ql (U) LARGE Abnormal NEGATIVE [facility] Nitrite, Urine Negative NEGATIVE [facility] pH, UA >=9.0 [facility] Protein (U) [Mass/Vol] 2+ Abnormal NEGATIVE [place] Specific [place], UA 1.010 [place] Turbidity UA CLOUDY Abnormal CLEAR [place] Urinalysis Comments NOT REPORTED [place] Urine Hgb Negative NEGATIVE [place] Urobilinogen, Urine Normal [place] C-Reactive Proteinon 020 CRP [Mass/Vol] 26.8 mg/L High 0 - 5 mg/L [place] Interpretation and review of laboratory results Abnormal [place] CBCon 08-21-2020 Erythrocyte distribution width (RBC) [Ratio] 13.7 % 11.8 - 14.4 % [place] Hematocrit (Bld) [Volume fraction] 40.0 % 36.3 - 47.1 % [place] Hemoglobin (Bld) [Mass/Vol] 11.9 g/dL 11.9 - 15.1 g/dL [place] MCH (RBC) [Entitic mass] 29.0 pg 25. 2 - 33.5 pg [place] MCHC (RBC) [Mass/Vol] 29.8 g/dL 28.4 - 34.8 g/dL [place] MCV (RBC) [Entitic vol] 97.3 fL 82.6 - 102.9 fL [place] Platelet mean volume (Bld) [Entitic vol] 10.3 fL 8.1 - 13.5 fL [place] Platelets (Bld) [#/Vol] 380 10*3/uL [place] RBC (Bld) [#/Vol] 4.11 10*6/uL 3.95 - 5.1 1 m/uL [place] WBC (Bld) [#/Vol] 0.0 10*3/uL 0.0 per 10 0 WBC [place] WBC (Bld) [#/Vol] 6.8 10*3/uL [place] Comprehensive Metabolic Pane riddhi 08-21-2020 Albumin [Mass/Vol] 4 g/dL 3.5 - 5.2 g/dL [place] Albumin/Globulin [Mass ratio] 1.2 {ratio} [place] ALP [Catalytic activity/Vol] 143 U/L High 35 - 104 U/L [place] ALT [Catalytic activity/Vol] 13 U/L 5 - 33 U/L [place] Anion gap [Moles/Vol] 14 mmol/L 9 - 17 mmol/L [place] AST [Catalytic activity/Vol] 14 U/L <32 [place] Bilirubin Ql (U) 0.18 mg/dL Low 0.3 - 1.2 mg/dL [place] Bun/Cre Ratio 38 [place] Calcium [Mass/Vol] 10.0 mg/dL 8.6 - 10. 4 mg/dL [place] Chloride [Moles/Vol] 102 mmol/L 98 - 10 7 mmol/L [place] CO2 [Moles/Vol] 27 mmol/L 20 - 31 mmol/L [place] Creatinine [Mass/Vol] 1.57 mg/dL High 0.5 - 0.9 mg/dL [place] GFR 38 mL/min Low >60 [place] GFR Non- 31 mL/min Low >60 [place] Glucose [Mass/Vol] 123 mg/dL High 70 - 99 mg/dL [place] Interpretation and review of laboratory results Abnormal [place] Potassium [Moles/Vol] 3.8 mmol/L 3.7 - 5.3 mmol/L [place] Protein [Mass/Vol] 7.4 g/dL 6.4 - 8.3 g/dL [place] Sodium [Moles/Vol] 143 mmol/L 135 - 144 mmol/L [place] Urea nitrogen [Mass/Vol] 60 mg/dL High 8 - 23 mg/dL [place] Metabolic Panelon 08-21-2020 GFR/1.73 sq M predicted among non-blacks MDRD (S/P/Bld) [Vol rate/Area] [place] Comment on above: Average GFR for 70 o r more years old: 75 mL/min/1.73sq m Chronic Kidney Disease: <60 mL/min/1.73sq m Kidney failure: <15 mL/min/1.73sq m eGFR calculated using average adult body mass. Additional eGFR calculator available at: http://www.SmartAsset/multiple_crcl_2012.htm Stage 1: Some kidney damage normal GFR Stage 2: Mild kidney damage GFR 60-89 Stage 3: Moderate kidney damage GFR 30-59 Stage 4: Severe kidney damage GFR 15-29 Stage 5: Severe kidney damage GFR <15 ESRD - chronic treatment by dialysis or transplant Sedimentation Rateon Interpretation and review of laboratory results Abnormal [place] Sed Rate 38 mm High 0 - 20 mm [place] C-Reactive Proteinon CRP [Mass/Vol] 14.9 mg/L High 0 - 5 mg/L [place] Interpretation and review of laboratory results Abnormal [place] CBCon 08-16-2020 Erythrocyte distribution width (RBC) [Ratio] 13.9 % 11.8 - 14.4 % [place] Hematocrit (Bld) [Volume fraction] 40.8 % 36.3 - 47.1 % [place] Hemoglobin (Bld) [Mass/Vol] 12.2 g/dL 11.9 - 15.1 g/dL [place] MCH (RBC) [Entitic mass] 28.8 pg 25. 2 - 33.5 pg [place] MCHC (RBC) [Mass/Vol] 29.9 g/dL 28.4 - 34.8 g/dL [place] MCV (RBC) [Entitic vol] 96.5 fL 82.6 - 102.9 fL [place] Platelet mean volume (Bld) [Entitic vol] 9.7 fL 8.1 - 13.5 fL [place] Platelets (Bld) [#/Vol] 405 10*3/uL [place] RBC (Bld) [#/Vol] 4.23 10*6/uL 3.95 - 5.1 1 m/uL [place] WBC (Bld) [#/Vol] 0.0 10*3/uL 0.0 per 10 0 WBC [place] WBC (Bld) [#/Vol] 9.7 10*3/uL [place] Comprehensive Metabolic Pane riddhi 08-16-2020 Albumin [Mass/Vol] 3.9 g/dL 3.5 - 5.2 g/dL [place] Albumin/Globulin [Mass ratio] 1.3 {ratio} [place] ALP [Catalytic activity/Vol] 143 U/L High 35 - 104 U/L [place] ALT [Catalytic activity/Vol] 13 U/L 5 - 33 U/L [place] Anion gap [Moles/Vol] 14 mmol/L 9 - 17 mmol/L [place] AST [Catalytic activity/Vol] 17 U/L <32 [place] Bilirubin Ql (U) 0.26 mg/dL Low 0.3 - 1.2 mg/dL [place] Bun/Cre Ratio 40 High [place] Calcium [Mass/Vol] 9.4 mg/dL 8.6 - 10. 4 mg/dL [place] Chloride [Moles/Vol] 102 mmol/L 98 - 10 7 mmol/L [place] CO2 [Moles/Vol] 25 mmol/L 20 - 31 mmol/L [place] Creatinine [Mass/Vol] 1.24 mg/dL High 0.5 - 0.9 mg/dL [place] GFR 50 mL/min Low >60 [place] GFR Non- 41 mL/min Low >60 [place] Glucose [Mass/Vol] 104 mg/dL High 70 - 99 mg/dL [place] Interpretation and review of laboratory results Abnormal [place] Potassium [Moles/Vol] 4.2 mmol/L 3.7 - 5.3 mmol/L [place] Protein [Mass/Vol] 7.0 g/dL 6.4 - 8.3 g/dL [place] Sodium [Moles/Vol] 141 mmol/L 135 - 144 mmol/L [place] Urea nitrogen [Mass/Vol] 49 mg/dL High 8 - 23 mg/dL [place] Metabolic Panelon 08-16-2020 GFR/1.73 sq M predicted among non-blacks MDRD (S/P/Bld) [Vol rate/Area] [place] Comment on above: Average GFR for 70 o r more years old: 75 mL/min/1.73sq m Chronic Kidney Disease: <60 mL/min/1.73sq m Kidney failure: <15 mL/min/1.73sq m eGFR calculated using average adult body mass. Additional eGFR calculator available at: http://www.SmartAsset/multiple_crcl_2012.htm Stage 1: Some kidney damage normal GFR Stage 2: Mild kidney damage GFR 60-89 Stage 3: Moderate kidney damage GFR 30-59 Stage 4: Severe kidney damage GFR 15-29 Stage 5: Severe kidney damage GFR <15 ESRD - chronic treatment by dialysis or transplant Sedimentation Rateon 020 Interpretation and review of laboratory results Abnormal [place] Sed Rate 42 mm High 0 - 20 mm [place] CBCon 08-09-2020 Erythrocyte distribution width (RBC) [Ratio] 13.7 % 11.8 - 14.4 % [place] Hematocrit (Bld) [Volume fraction] 37.1 % 36.3 - 47.1 % [place] Hemoglobin (Bld) [Mass/Vol] 11.4 g/dL Low 11.9 - 15.1 g/dL [place] Interpretation and review of laboratory results Abnormal [place] MCH (RBC) [Entitic mass] 29.5 pg 25. 2 - 33.5 pg [place] MCHC (RBC) [Mass/Vol] 30.7 g/dL 28.4 - 34.8 g/dL [place] MCV (RBC) [Entitic vol] 96.1 fL 82.6 - 102.9 fL [place] Platelet mean volume (Bld) [Entitic vol] 10.0 fL 8.1 - 13.5 fL [place] Platelets (Bld) [#/Vol] 334 10*3/uL [place] RBC (Bld) [#/Vol] 3.86 10*6/uL Low 3.95 - 5.1 1 m/uL [place] WBC (Bld) [#/Vol] 10.0 10*3/uL [place] WBC (Bld) [#/Vol] 0.0 10*3/uL 0.0 per 10 0 WBC [place] Creatinine, Random Urineon 1 10-09-2019 Creatinine, Ur 25.9 mg/dL Low 28 - 217 mg/dL [place] Interpretation and review of laboratory results Abnormal [place] Ferritinon 08-09-2020 Ferritin [Mass/Vol] 179 ug/L High 13 - 150 ug/L [place] Iron and TIBCon 08-09-2020 Iron [Mass/Vol] 38 ug/dL 37 - 145 ug/dL [place] Iron Saturation 13 % Low 20 - 55 % [place] TIBC 291 ug/dL 250 - 450 ug/dL [place] UIBC 253 ug/dL 112 - 347 ug/dL [place] Magnesiumon 08-09-2020 Magnesium [Mass/Vol] 2.1 mg/dL 1.6 - 2 .6 mg/dL [place] Metabolic Panelon 08-09-2020 GFR/1.73 sq M predicted among non-blacks MDRD (S/P/Bld) [Vol rate/Area] [place] Comment on above: Average GFR for 70 o r more years old: 75 mL/min/1.73sq m Chronic Kidney Disease: <60 mL/min/1.73sq m Kidney failure: <15 mL/min/1.73sq m eGFR calculated using average adult body mass. Additional eGFR calculator available at: http://www.Velocomp.BrieFix/multiple_crcl_2012.htm Stage 1: Some kidney damage normal GFR Stage 2: Mild kidney damage GFR 60-89 Stage 3: Moderate kidney damage GFR 30-59 Stage 4: Severe kidney damage GFR 15-29 Stage 5: Severe kidney damage GFR <15 ESRD - chronic treatment by dialysis or transplant Microscopic Urinalysison Amorphous, UA NOT REPORTED None [place] Bacteria, UA 1+ Abnormal None [place] Casts UA NOT REPORTED /LPF [place] Crystals, UA NOT REPORTED None /HPF [place] Epithelial Cells UA 5 TO 10 [place] Interpretation and review of laboratory results Abnormal [place] Mucus, UA NOT REPORTED None [place] Other Observations UA NOT REPORTED NOT REQ. [place] RBC (U) [#/Vol] 2 TO 5 [place] Renal Epithelial, UA NOT REPORTED 0 /HPF [place] Trichomonas, UA NOT REPORTED None [place] WBC, UA 10 TO 20 [place] Yeast, UA NOT REPORTED None [place] Otheron 08-09-2020 Interpretation and review of laboratory results Abnormal [place] PTH, Intacton 08-09-2020 Pth Intact 40.39 pg/mL 15 - 65 pg/mL [place] Comment on above: SAMPLES FROM PATIENT S ROUTINELY RECEIVING HIGH DOSE BIOTIN THERAPY MAY SHOW FALSELY DEPRESSED RESULTS. ADDITIONAL INFORMATION MAY BE REQUIRED FOR DIAGNOSIS. Protein, urine, randomon Protein (U) [Mass/Vol] 10 mg/dL [place] Comment on above: No normal range esta blished. Renal Function Panelon 08-09 Albumin [Mass/Vol] 3.7 g/dL 3.5 - 5.2 g/dL [place] Anion gap [Moles/Vol] 14 mmol/L 9 - 17 mmol/L [place] Bun/Cre Ratio 38 High [place] Calcium [Mass/Vol] 9.2 mg/dL 8.6 - 10. 4 mg/dL [place] Chloride [Moles/Vol] 102 mmol/L 98 - 10 7 mmol/L [place] CO2 [Moles/Vol] 24 mmol/L 20 - 31 mmol/L [place] Creatinine [Mass/Vol] 1.07 mg/dL High 0.5 - 0.9 mg/dL [place] GFR 60 mL/min Low >60 [place] GFR Non- 49 mL/min Low >60 [place] Glucose [Mass/Vol] 111 mg/dL High 70 - 99 mg/dL [place] Interpretation and review of laboratory results Abnormal [place] Phosphate [Mass/Vol] 3.2 mg/dL 2.6 - 4 .5 mg/dL [place] Potassium [Moles/Vol] 3.9 mmol/L 3.7 - 5.3 mmol/L [place] Sodium [Moles/Vol] 140 mmol/L 135 - 144 mmol/L [place] Urea nitrogen [Mass/Vol] 41 mg/dL High 8 - 23 mg/dL [place] Uric Acidon 08-09-2020 Urate [Mass/Vol] 4.5 mg/dL 2.4 - 5.7 mg/dL [place] Urinalysis Reflex to Culture on 08-09-2020 Bilirubin Urine Negative NEGATIVE [place] Color, UA YELLOW YELLOW [place] Glucose, Ur Negative NEGATIVE [place] Interpretation and review of laboratory results Abnormal [place] Ketones Ql (U) Negative NEGATIVE [place] Leukocyte esterase Test strip Ql (U) LARGE Abnormal NEGATIVE [place] Nitrite, Urine Negative NEGATIVE [place] pH, UA 7.0 [place] Protein (U) [Mass/Vol] Negative NEGATIVE [place] Specific [place], UA 1.015 [place] Turbidity UA CLEAR CLEAR [place] Urinalysis Comments NOT REPORTED [place] Urine Hgb TRACE Abnormal NEGATIVE [place] Urobilinogen, Urine Normal Normal [place] CBCon 07-18-2020 Erythrocyte distribution width (RBC) [Ratio] 14.7 % High 11.8 - 14.4 % [place] Hematocrit (Bld) [Volume fraction] 34.6 % Low 36.3 - 47.1 % [place] Hemoglobin (Bld) [Mass/Vol] 10.3 g/dL Low 11.9 - 15.1 g/dL [place] Interpretation and review of laboratory results Abnormal [place] MCH (RBC) [Entitic mass] 30.1 pg 25. 2 - 33.5 pg [place] MCHC (RBC) [Mass/Vol] 29.8 g/dL 28.4 - 34.8 g/dL [place] MCV (RBC) [Entitic vol] 101.2 fL 82.6 - 102.9 fL [place] Platelet mean volume (Bld) [Entitic vol] 9.9 fL 8.1 - 13.5 fL [place] Platelets (Bld) [#/Vol] 328 10*3/uL [place] RBC (Bld) [#/Vol] 3.42 10*6/uL Low 3.95 - 5.1 1 m/uL [place] WBC (Bld) [#/Vol] 0.0 10*3/uL 0.0 per 10 0 WBC [place] WBC (Bld) [#/Vol] 7.5 10*3/uL [place] Creatinine, Random Urineon 1 Creatinine, Ur 97.1 mg/dL 28 - 217 mg/dL [place] Magnesiumon 07-18-2020 Magnesium [Mass/Vol] 2.2 mg/dL 1.6 - 2 .6 mg/dL [place] Metabolic Panelon 07-18-2020 GFR/1.73 sq M predicted among non-blacks MDRD (S/P/Bld) [Vol rate/Area] [place] Comment on above: Average GFR for 70 o r more years old: 75 mL/min/1.73sq m Chronic Kidney Disease: <60 mL/min/1.73sq m Kidney failure: <15 mL/min/1.73sq m eGFR calculated using average adult body mass. Additional eGFR calculator available at: http://www.Velocomp.BrieFix/multiple_crcl_2011.htm Stage 1: Some kidney damage normal GFR Stage 2: Mild kidney damage GFR 60-89 Stage 3: Moderate kidney damage GFR 30-59 Stage 4: Severe kidney damage GFR 15-29 Stage 5: Severe kidney damage GFR <15 ESRD - chronic treatment by dialysis or transplant Microscopic Urinalysison Amorphous, UA NOT REPORTED None [place] Bacteria, UA NOT REPORTED None [place] Casts UA NOT REPORTED /LPF [place] Crystals, UA CALCIUM OXALATE Abnormal None /HPF [place] Crystals, UA 0 TO 2 Abnormal None /HPF [place] Epithelial Cells UA 2 TO 5 [place] Interpretation and review of laboratory results Abnormal [place] Mucus, UA NOT REPORTED None [place] Other Observations UA NOT REPORTED NOT REQ. [place] RBC (U) [#/Vol] 0 TO 2 [place] Renal Epithelial, UA NOT REPORTED 0 /HPF [place] Trichomonas, UA NOT REPORTED None [place] WBC, UA None [place] Yeast, UA NOT REPORTED None [place] PTH, Intacton 07-18-2020 Pth Intact 58.77 pg/mL 15 - 65 pg/mL [place] Comment on above: SAMPLES FROM PATIENT S ROUTINELY RECEIVING HIGH DOSE BIOTIN THERAPY MAY SHOW FALSELY DEPRESSED RESULTS. ADDITIONAL INFORMATION MAY BE REQUIRED FOR DIAGNOSIS. Protein, urine, randomon Protein (U) [Mass/Vol] 19 mg/dL [place] Comment on above: No normal range esta blished. Renal Function Panelon 07-18 Albumin [Mass/Vol] 3.3 g/dL Low 3.5 - 5.2 g/dL [place] Anion gap [Moles/Vol] 16 mmol/L 9 - 17 mmol/L [place] Bun/Cre Ratio 27 High [place] Calcium [Mass/Vol] 8.6 mg/dL 8.6 - 10. 4 mg/dL [place] Chloride [Moles/Vol] 102 mmol/L 98 - 10 7 mmol/L [place] CO2 [Moles/Vol] 25 mmol/L 20 - 31 mmol/L [place] Creatinine [Mass/Vol] 1.17 mg/dL High 0.5 - 0.9 mg/dL [place] GFR 54 mL/min Low >60 [place] GFR Non- 44 mL/min Low >60 [place] Glucose [Mass/Vol] 97 mg/dL 70 - 99 mg/dL [place] Interpretation and review of laboratory results Abnormal [place] Phosphate [Mass/Vol] 4.3 mg/dL 2.6 - 4 .5 mg/dL [place] Potassium [Moles/Vol] 3.9 mmol/L 3.7 - 5.3 mmol/L [place] Sodium [Moles/Vol] 143 mmol/L 135 - 144 mmol/L [place] Urea nitrogen [Mass/Vol] 32 mg/dL High 8 - 23 mg/dL [place] Uric Acidon 07-18-2020 Urate [Mass/Vol] 5.1 mg/dL 2.4 - 5.7 mg/dL [place] Urinalysis Reflex to Culture on 07-18-2020 Bilirubin Urine Negative NEGATIVE [place] Color, UA YELLOW YELLOW [place] Glucose, Ur Negative NEGATIVE [place] Interpretation and review of laboratory results Abnormal [place] Ketones Ql (U) Negative NEGATIVE [place] Leukocyte esterase Test strip Ql (U) Negative NEGATIVE [place] Nitrite, Urine Negative NEGATIVE [place] pH, UA 5.5 [place] Protein (U) [Mass/Vol] Negative NEGATIVE [place] Specific [place], UA 1.025 High [place] Turbidity UA CLEAR CLEAR [place] Urinalysis Comments NOT REPORTED [place] Urine Hgb Negative NEGATIVE [place] Urobilinogen, Urine Normal Normal [place] Basic Metabolic Panelon 10- Anion gap [Moles/Vol] 12 mmol/L 9 - 17 mmol/L [place] Bun/Cre Ratio 35 High [place] Calcium [Mass/Vol] 8.7 mg/dL 8.6 - 10. 4 mg/dL [place] Chloride [Moles/Vol] 105 mmol/L 98 - 10 7 mmol/L [place] CO2 [Moles/Vol] 24 mmol/L 20 - 31 mmol/L [place] Creatinine [Mass/Vol] 1.02 mg/dL High 0.5 - 0.9 mg/dL [place] GFR >60 >60 mL/min [place] GFR Non- 52 mL/min Low >60 [place] Glucose [Mass/Vol] 98 mg/dL 70 - 99 mg/dL [place] Interpretation and review of laboratory results Abnormal [place] Potassium [Moles/Vol] 4.0 mmol/L 3.7 - 5.3 mmol/L [place] Sodium [Moles/Vol] 141 mmol/L 135 - 144 mmol/L [place] Urea nitrogen [Mass/Vol] 36 mg/dL High 8 - 23 mg/dL [place] Metabolic Panelon 07-09-2020 GFR/1.73 sq M predicted among non-blacks MDRD (S/P/Bld) [Vol rate/Area] [place] Comment on above: Stage 1: Some [...] body mass. Additional eGFR calculator available at: http://www.Velocomp.BrieFix/multiple_crcl_2012.htm Basic Metabolic Panelon Anion gap [Moles/Vol] 11 mmol/L 9 - 17 mmol/L [place] Bun/Cre Ratio 36 High [place] Calcium [Mass/Vol] 9.0 mg/dL 8.6 - 10. 4 mg/dL [place] Chloride [Moles/Vol] 104 mmol/L 98 - 10 7 mmol/L [place] CO2 [Moles/Vol] 23 mmol/L 20 - 31 mmol/L [place] Creatinine [Mass/Vol] 1.59 mg/dL High 0.5 - 0.9 mg/dL [place] GFR 38 mL/min Low >60 [place] GFR Non- 31 mL/min Low >60 [place] Glucose [Mass/Vol] 82 mg/dL 70 - 99 mg/dL [place] Interpretation and review of laboratory results Abnormal [place] Potassium [Moles/Vol] 4.1 mmol/L 3.7 - 5.3 mmol/L [place] Sodium [Moles/Vol] 138 mmol/L 135 - 144 mmol/L [place] Urea nitrogen [Mass/Vol] 58 mg/dL High 8 - 23 mg/dL [place] Metabolic Panelon 07-01-2020 GFR/1.73 sq M predicted among non-blacks MDRD (S/P/Bld) [Vol rate/Area] [place] Comment on above: Stage 1: Some [...] body mass. Additional eGFR calculator available at: http://www.Velocomp.BrieFix/multiple_crcl_2012.htm Basic Metabolic Panelon -2 Anion gap [Moles/Vol] 12 mmol/L 9 - 17 mmol/L [place] Bun/Cre Ratio 36 High [place] Calcium [Mass/Vol] 8.9 mg/dL 8.6 - 10. 4 mg/dL [place] Chloride [Moles/Vol] 101 mmol/L 98 - 10 7 mmol/L [place] CO2 [Moles/Vol] 23 mmol/L 20 - 31 mmol/L [place] Creatinine [Mass/Vol] 1.34 mg/dL High 0.5 - 0.9 mg/dL [place] GFR 46 mL/min Low >60 [place] GFR Non- 38 mL/min Low >60 [place] Glucose [Mass/Vol] 112 mg/dL High 70 - 99 mg/dL [place] Interpretation and review of laboratory results Abnormal [place] Potassium [Moles/Vol] 4.5 mmol/L 3.7 - 5.3 mmol/L [place] Sodium [Moles/Vol] 136 mmol/L 135 - 144 mmol/L [place] Urea nitrogen [Mass/Vol] 48 mg/dL High 8 - 23 mg/dL [place] Infectious Disease Office/ inic Noteon 06-25-2020 Infectious Disease Office/Clinic Note [...] to a staph aureus growth noted on Keshia 23 culture from the lower leg. She is [...] oral capsule, 0.25 mcg, 1 caps, Oral, Mo/We/Fr, Not taking desoximetasone 0.25% topical cream, 1 [...] (MRI) Electronically signed by Manuel Ibarra MD 06/25/20 09:51 EDT Normal [facility] Metabolic Panelon 06-25-2020 GFR/1.73 sq M predicted among non-blacks MDRD (S/P/Bld) [Vol rate/Area] [place] Comment on above: Stage 1: Some [...] body mass. Additional eGFR calculator available at: http://www.Velocomp.BrieFix/multiple_crcl_2012.htm Provider Letteron 06-25-2020 Provider Letter Justino Dhaliwal DO [address] [place] [address] Re: Jesús Nolan Date of Visit: 06/25/[address] Dhaliwal, Thank you for your referral to my office. Attached you will find the most recent office visit note. Please call if you have any questions or concerns. Sincerely, Manuel Ibarra MD [address] [place] [address], [place] [address] The following document(s) were included in the letter: June 25, 2020 09:49:14 EDT - (06/25/2020) Telehealth Office Visit Note Normal [facility] Lipid Panelon 06-19-2020 Cholesterol [Mass/Vol] 151 mg/dL <200 [place] Comment on above: Cholesterol Guidelines: <200 Desirable 200-240 Borderline >240 Undesirable Cholesterol in HDL [Mass/Vol] 58 mg/dL >40 [place] Comment on above: HDL Guidelines: <40 Undesirable 40-59 Borderline >59 Desirable Cholesterol in LDL [Mass/Vol] 72 mg/dL 0 - 130 mg/dL [place] Comment on above: LDL Guidelines: <100 Desirable 100-129 Near to/above Desirable 130-159 Borderline >159 Undesirable Direct (measured) LDL and calculated LDL are not interchangeable tests. Cholesterol in VLDL [Mass/Vol] NOT REPORTED 1 - 30 mg/dL [place] Cholesterol.total/Choles terol in HDL [Mass ratio] 2.6 {ratio} <5 [place] Triglyceride [Mass/Vol] 107 mg/dL <150 [place] Comment on above: Triglyceride Guidelines: <150 Desirable 150-199 Borderline 200-499 High >499 Very high Based on AHA Guidelines for fasting triglyceride, June 2012. C-Reactive Proteinon 020 CRP [Mass/Vol] 3.9 mg/L 0 - 5 mg/L [place] CBCon 06-12-2020 Erythrocyte distribution width (RBC) [Ratio] 17.4 % High 11.8 - 14.4 % [place] Hematocrit (Bld) [Volume fraction] 31.3 % Low 36.3 - 47.1 % [place] Hemoglobin (Bld) [Mass/Vol] 9.3 g/dL Low 11.9 - 15.1 g/dL [place] Interpretation and review of laboratory results Abnormal [place] MCH (RBC) [Entitic mass] 30.1 pg 25. 2 - 33.5 pg [place] MCHC (RBC) [Mass/Vol] 29.7 g/dL 28.4 - 34.8 g/dL [place] MCV (RBC) [Entitic vol] 101.3 fL 82.6 - 102.9 fL [place] Platelet mean volume (Bld) [Entitic vol] 9.5 fL 8.1 - 13.5 fL [place] Platelets (Bld) [#/Vol] 382 10*3/uL [place] RBC (Bld) [#/Vol] 3.09 10*6/uL Low 3.95 - 5.1 1 m/uL [place] WBC (Bld) [#/Vol] 0.0 10*3/uL 0.0 per 10 0 WBC [place] WBC (Bld) [#/Vol] 7.3 10*3/uL [place] Comprehensive Metabolic Pane riddhi 06-12-2020 Albumin [Mass/Vol] 2.9 g/dL Low 3.5 - 5.2 g/dL [place] Albumin/Globulin [Mass ratio] 1.1 {ratio} [place] ALP [Catalytic activity/Vol] 155 U/L High 35 - 104 U/L [place] ALT [Catalytic activity/Vol] 25 U/L 5 - 33 U/L [place] Anion gap [Moles/Vol] 10 mmol/L 9 - 17 mmol/L [place] AST [Catalytic activity/Vol] 22 U/L <32 [place] Bilirubin Ql (U) 0.24 mg/dL Low 0.3 - 1.2 mg/dL [place] Bun/Cre Ratio 23 High [place] Calcium [Mass/Vol] 8.6 mg/dL 8.6 - 10. 4 mg/dL [place] Chloride [Moles/Vol] 102 mmol/L 98 - 10 7 mmol/L [place] CO2 [Moles/Vol] 26 mmol/L 20 - 31 mmol/L [place] Creatinine [Mass/Vol] 1.03 mg/dL High 0.5 - 0.9 mg/dL [place] GFR >60 >60 mL/min [place] GFR Non- 51 mL/min Low >60 [place] Glucose [Mass/Vol] 110 mg/dL High 70 - 99 mg/dL [place] Interpretation and review of laboratory results Abnormal [place] Potassium [Moles/Vol] 4.1 mmol/L 3.7 - 5.3 mmol/L [place] Protein [Mass/Vol] 5.5 g/dL Low 6.4 - 8.3 g/dL [place] Sodium [Moles/Vol] 138 mmol/L 135 - 144 mmol/L [place] Urea nitrogen [Mass/Vol] 24 mg/dL High 8 - 23 mg/dL [place] Infectious Disease Office/Cl inic Noteon 06-12-2020 [...] Continue to follow-up with Dr. Yousif in [place] wound [facility]. Problem List/Past Medical History Ongoing [...] Manuel Ibarra MD 06/12/20 14:48 EDT Normal [facility] Metabolic Panelon 06-12-2020 GFR/1.73 sq M predicted among non-blacks MDRD (S/P/Bld) [Vol rate/Area] [place] Comment on above: Average GFR for 70 o r more years old: 75 mL/min/1.73sq m Chronic Kidney Disease: <60 mL/min/1.73sq m Kidney failure: <15 mL/min/1.73sq m eGFR calculated using average adult body mass. Additional eGFR calculator available at: http://www.SmartAsset/multiple_crcl_2012.htm Stage 1: Some kidney damage normal GFR Stage 2: Mild kidney damage GFR 60-89 Stage 3: Moderate kidney damage GFR 30-59 Stage 4: Severe kidney damage GFR 15-29 Stage 5: Severe kidney damage GFR <15 ESRD - chronic treatment by dialysis or transplant Sedimentation Rateon 020 Interpretation and review of laboratory results Abnormal [place] Sed Rate 54 mm High 0 - 20 mm [place] C-Reactive Proteinon 020 CRP [Mass/Vol] 6.5 mg/L High 0 - 5 mg/L [place] Interpretation and review of laboratory results Abnormal [place] CBCon 06-06-2020 Erythrocyte distribution width (RBC) [Ratio] 17.4 % High 11.8 - 14.4 % [place] Hematocrit (Bld) [Volume fraction] 30.6 % Low 36.3 - 47.1 % [place] Hemoglobin (Bld) [Mass/Vol] 9.0 g/dL Low 11.9 - 15.1 g/dL [place] Interpretation and review of laboratory results Abnormal [place] MCH (RBC) [Entitic mass] 30.2 pg 25. 2 - 33.5 pg [place] MCHC (RBC) [Mass/Vol] 29.4 g/dL 28.4 - 34.8 g/dL [place] MCV (RBC) [Entitic vol] 102.7 fL 82.6 - 102.9 fL [place] Platelet mean volume (Bld) [Entitic vol] 9.4 fL 8.1 - 13.5 fL [place] Platelets (Bld) [#/Vol] 356 10*3/uL [place] RBC (Bld) [#/Vol] 2.98 10*6/uL Low 3.95 - 5.1 1 m/uL [place] WBC (Bld) [#/Vol] 8.0 10*3/uL [place] WBC (Bld) [#/Vol] 0.0 10*3/uL 0.0 per 10 0 WBC [place] Comprehensive Metabolic Pane riddhi 06-06-2020 Albumin [Mass/Vol] 2.9 g/dL Low 3.5 - 5.2 g/dL [place] Albumin/Globulin [Mass ratio] 1.2 {ratio} [place] ALP [Catalytic activity/Vol] 170 U/L High 35 - 104 U/L [place] ALT [Catalytic activity/Vol] 13 U/L 5 - 33 U/L [place] Anion gap [Moles/Vol] 11 mmol/L 9 - 17 mmol/L [place] AST [Catalytic activity/Vol] 18 U/L <32 [place] Bilirubin Ql (U) 0.28 mg/dL Low 0.3 - 1.2 mg/dL [place] Bun/Cre Ratio 23 High [place] Calcium [Mass/Vol] 8.5 mg/dL Low 8.6 - 10. 4 mg/dL [place] Chloride [Moles/Vol] 106 mmol/L 98 - 10 7 mmol/L [place] CO2 [Moles/Vol] 23 mmol/L 20 - 31 mmol/L [place] Creatinine [Mass/Vol] 1.01 mg/dL High 0.5 - 0.9 mg/dL [place] GFR >60 >60 mL/[place] GFR Non- 52 mL/min Low >60 [place] Glucose [Mass/Vol] 109 mg/dL High 70 - 99 mg/dL [place] Interpretation and review of laboratory results Abnormal [place] Potassium [Moles/Vol] 3.9 mmol/L 3.7 - 5.3 mmol/L [place] Protein [Mass/Vol] 5.4 g/dL Low 6.4 - 8.3 g/dL [place] Sodium [Moles/Vol] 140 mmol/L 135 - 144 mmol/L [place] Urea nitrogen [Mass/Vol] 23 mg/dL 8 - 23 mg/dL [place] Metabolic Panelon 06-06-2020 GFR/1.73 sq M predicted among non-blacks MDRD (S/P/Bld) [Vol rate/Area] [place] Comment on above: Average GFR for 70 o r more years old: 75 mL/min/1.73sq m Chronic Kidney Disease: <60 mL/min/1.73sq m Kidney failure: <15 mL/min/1.73sq m eGFR calculated using average adult body mass. Additional eGFR calculator available at: http://www.SmartAsset/multiple_crcl_2012.htm Stage 1: Some kidney damage normal GFR Stage 2: Mild kidney damage GFR 60-89 Stage 3: Moderate kidney damage GFR 30-59 Stage 4: Severe kidney damage GFR 15-29 Stage 5: Severe kidney damage GFR <15 ESRD - chronic treatment by dialysis or transplant Sedimentation Rateon 020 Interpretation and review of laboratory results Abnormal [place] Sed Rate 58 mm High 0 - 20 mm [place] C-Reactive Proteinon 020 CRP [Mass/Vol] 7.6 mg/L High 0 - 5 mg/L [place] Interpretation and review of laboratory results Abnormal [place] CBC Auto Differentialon Basophils (Bld) [#/Vol] 0.00 10*3/uL [place] Basophils/100 WBC (Bld) 0 % 0 - 2 % [place] Differential Type NOT REPORTED [place] Eosinophils (Bld) [#/Vol] 0.43 10*3/uL [place] Eosinophils/100 WBC (Bld) 8 % High 1 - 4 % [place] Erythrocyte distribution width (RBC) [Ratio] 17.0 % High 11.8 - 14.4 % [place] Hematocrit (Bld) [Volume fraction] 32.6 % Low 36.3 - 47.1 % [place] Hemoglobin (Bld) [Mass/Vol] 9.4 g/dL Low 11.9 - 15.1 g/dL [place] Immature granulocytes (Bld) [#/Vol] 1 % High 0 [place] Immature granulocytes (Bld) [#/Vol] 0.05 10*3/uL [place] Interpretation and review of laboratory results Abnormal [place] Lymphocytes (Bld) [#/Vol] 2.11 10*3/uL [place] Lymphocytes/100 WBC (Bld) 39 % 24 - 43 % [place] MCH (RBC) [Entitic mass] 29.5 pg 25. 2 - 33.5 pg [place] MCHC (RBC) [Mass/Vol] 28.8 g/dL 28.4 - 34.8 g/dL [place] MCV (RBC) [Entitic vol] 102.2 fL 82.6 - 102.9 fL [place] Monocytes (Bld) [#/Vol] 0.59 10*3/uL [place] Monocytes/100 WBC (Bld) 11 % 3 - 12 % [place] Morphology [place] (Bld) [Interp] HYPOCHROMASIA PRESENT [place] Platelet mean volume (Bld) [Entitic vol] 9.3 fL 8.1 - 13.5 fL [place] Platelets (Bld) [#/Vol] 398 10*3/uL [place] Platelets (Bld) [#/Vol] NOT REPORTED [place] RBC (Bld) [#/Vol] 3.19 10*6/uL Low 3.95 - 5.1 1 m/uL [place] RBC morphology finding Nom (Bld) NOT REPORTED [place] Segmented neutrophils/100 WBC (Bld) 41 % 36 - 65 % [place] Segs Absolute 2.22 [place] WBC (Bld) [#/Vol] 5.4 10*3/uL [place] WBC (Bld) [#/Vol] 0.0 10*3/uL 0.0 per 10 0 WBC [place] WBC Morphology NOT REPORTED [place] Comprehensive Metabolic Pane riddhi 05-30-2020 Albumin [Mass/Vol] 2.8 g/dL Low 3.5 - 5.2 g/dL [place] Albumin/Globulin [Mass ratio] 1.0 {ratio} [place] ALP [Catalytic activity/Vol] 147 U/L High 35 - 104 U/L [place] ALT [Catalytic activity/Vol] 7 U/L 5 - 33 U/L [place] Anion gap [Moles/Vol] 10 mmol/L 9 - 17 mmol/L [place] AST [Catalytic activity/Vol] 13 U/L <32 [place] Bilirubin Ql (U) 0.23 mg/dL Low 0.3 - 1.2 mg/dL [place] Bun/Cre Ratio 16 [place] Calcium [Mass/Vol] 8.5 mg/dL Low 8.6 - 10. 4 mg/dL [place] Chloride [Moles/Vol] 104 mmol/L 98 - 10 7 mmol/L [place] CO2 [Moles/Vol] 23 mmol/L 20 - 31 mmol/L [place] Creatinine [Mass/Vol] 1.3 mg/dL High 0.5 - 0.9 mg/dL [place] GFR 48 mL/min Low >60 [place] GFR Non- 39 mL/min Low >60 [place] Glucose [Mass/Vol] 101 mg/dL High 70 - 99 mg/dL [place] Interpretation and review of laboratory results Abnormal [place] Potassium [Moles/Vol] 4.1 mmol/L 3.7 - 5.3 mmol/L [place] Protein [Mass/Vol] 5.6 g/dL Low 6.4 - 8.3 g/dL [place] Sodium [Moles/Vol] 137 mmol/L 135 - 144 mmol/L [place] Urea nitrogen [Mass/Vol] 21 mg/dL 8 - 23 mg/dL [place] Metabolic Panelon 05-30-2020 GFR/1.73 sq M predicted among non-blacks MDRD (S/P/Bld) [Vol rate/Area] [place] Comment on above: Stage 1: Some [...] body mass. Additional eGFR calculator available at: http://www.SmartAsset/multiple_crcl_2012.htm Sedimentation Rateon 020 Interpretation and review of laboratory results Abnormal [place] Sed Rate 44 mm High 0 - 20 mm [place] Infectious Disease Office/Cl inic Noteon 05-29-2020 [...] lower leg Consult with wound clinic in [place]. 3. Chronic kidney disease Continue to monitor [...] Manuel Ibarra MD 05/29/20 14:48 EDT Normal [facility] C-Reactive Proteinon 020 CRP [Mass/Vol] 52.4 mg/L High 0 - 5 mg/L [place] Interpretation and review of laboratory results Abnormal [place] CBC Auto Differentialon 04-28 Basophils (Bld) [#/Vol] 0.03 10*3/uL [place] Basophils/100 WBC (Bld) 0 % 0 - 2 % [place] Differential Type NOT REPORTED [place] Eosinophils (Bld) [#/Vol] 0.27 10*3/uL [place] Eosinophils/100 WBC (Bld) 3 % 1 - 4 % [place] Erythrocyte distribution width (RBC) [Ratio] 16.5 % High 11.8 - 14.4 % [place] Hematocrit (Bld) [Volume fraction] 27.8 % Low 36.3 - 47.1 % [place] Hemoglobin (Bld) [Mass/Vol] 8.5 g/dL Low 11.9 - 15.1 g/dL [place] Immature granulocytes (Bld) [#/Vol] 0.09 10*3/uL [place] Immature granulocytes (Bld) [#/Vol] 1 % High 0 [place] Interpretation and review of laboratory results Abnormal [place] Lymphocytes (Bld) [#/Vol] 1.64 10*3/uL [place] Lymphocytes/100 WBC (Bld) 16 % Low 24 - 43 % [place] MCH (RBC) [Entitic mass] 30.1 pg 25. 2 - 33.5 pg [place] MCHC (RBC) [Mass/Vol] 30.6 g/dL 28.4 - 34.8 g/dL [place] MCV (RBC) [Entitic vol] 98.6 fL 82.6 - 102.9 fL [place] Monocytes (Bld) [#/Vol] 1.02 10*3/uL [place] Monocytes/100 WBC (Bld) 10 % 3 - 12 % [place] Platelet mean volume (Bld) [Entitic vol] 9.2 fL 8.1 - 13.5 fL [place] Platelets (Bld) [#/Vol] NOT REPORTED [place] Platelets (Bld) [#/Vol] 516 10*3/uL [place] RBC (Bld) [#/Vol] 2.82 10*6/uL Low 3.95 - 5.1 1 m/uL [place] RBC morphology finding Nom (Bld) NOT REPORTED [place] Segmented neutrophils/100 WBC (Bld) 70 % High 36 - 65 % [place] Segs Absolute 7.00 [place] WBC (Bld) [#/Vol] 0.0 10*3/uL 0.0 per 10 0 WBC [place] WBC (Bld) [#/Vol] 10.1 10*3/uL [place] WBC Morphology NOT REPORTED [place] Comprehensive Metabolic Pane riddhi 05-23-2020 Albumin [Mass/Vol] 3 g/dL Low 3.5 - 5.2 g/dL [place] Albumin/Globulin [Mass ratio] 1.1 {ratio} [place] ALP [Catalytic activity/Vol] 152 U/L High 35 - 104 U/L [place] ALT [Catalytic activity/Vol] 11 U/L 5 - 33 U/L [place] Anion gap [Moles/Vol] 12 mmol/L 9 - 17 mmol/L [place] AST [Catalytic activity/Vol] 27 U/L <32 [place] Bilirubin Ql (U) 0.37 mg/dL 0.3 - 1.2 mg/dL [place] Bun/Cre Ratio 10 [place] Calcium [Mass/Vol] 8.4 mg/dL Low 8.6 - 10. 4 mg/dL [place] Chloride [Moles/Vol] 103 mmol/L 98 - 10 7 mmol/L [place] CO2 [Moles/Vol] 23 mmol/L 20 - 31 mmol/L [place] Creatinine [Mass/Vol] 1.53 mg/dL High 0.5 - 0.9 mg/dL [place] GFR 39 mL/min Low >60 [place] GFR Non- 32 mL/min Low >60 [place] Glucose [Mass/Vol] 87 mg/dL 70 - 99 mg/dL [place] Interpretation and review of laboratory results Abnormal [place] Potassium [Moles/Vol] 3.7 mmol/L 3.7 - 5.3 mmol/L [place] Protein [Mass/Vol] 5.7 g/dL Low 6.4 - 8.3 g/dL [place] Sodium [Moles/Vol] 138 mmol/L 135 - 144 mmol/L [place] Urea nitrogen [Mass/Vol] 16 mg/dL 8 - 23 mg/dL [place] Metabolic Panelon 05-23-2020 GFR/1.73 sq M predicted among non-blacks MDRD (S/P/Bld) [Vol rate/Area] [place] Comment on above: Average GFR for 70 o r more years old: 75 mL/min/1.73sq m Chronic Kidney Disease: <60 mL/min/1.73sq m Kidney failure: <15 mL/min/1.73sq m eGFR calculated using average adult body mass. Additional eGFR calculator available at: http://www.SmartAsset/multiple_crcl_2012.htm Stage 1: Some kidney damage normal GFR Stage 2: Mild kidney damage GFR 60-89 Stage 3: Moderate kidney damage GFR 30-59 Stage 4: Severe kidney damage GFR 15-29 Stage 5: Severe kidney damage GFR <15 ESRD - chronic treatment by dialysis or transplant Sedimentation Rateon 2 020 Interpretation and review of laboratory results Abnormal [place] Sed Rate 70 mm High 0 - 20 mm [place] Infectious Disease Office/Cl inic Noteon 05-22-2020 [...] Manuel Ibarra MD 05/22/20 17:13 EDT Normal [facility] CBC Auto Differentialon 04-28 Basophils (Bld) [#/Vol] 10*3/uL [place] Basophils/100 WBC (Bld) 0 % 0 - 2 % [place] Differential Type NOT REPORTED [place] Eosinophils (Bld) [#/Vol] 0.26 10*3/uL [place] Eosinophils/100 WBC (Bld) 3 % 1 - 4 % [place] Erythrocyte distribution width (RBC) [Ratio] 15.0 % High 11.8 - 14.4 % [place] Hematocrit (Bld) [Volume fraction] 27.8 % Low 36.3 - 47.1 % [place] Hemoglobin (Bld) [Mass/Vol] 8.4 g/dL Low 11.9 - 15.1 g/dL [place] Immature granulocytes (Bld) [#/Vol] 0.11 10*3/uL [place] Immature granulocytes (Bld) [#/Vol] 1 % High 0 [place] Interpretation and review of laboratory results Abnormal [place] Lymphocytes (Bld) [#/Vol] 1.84 10*3/uL [place] Lymphocytes/100 WBC (Bld) 19 % Low 24 - 43 % [place] MCH (RBC) [Entitic mass] 29.6 pg 25. 2 - 33.5 pg [place] MCHC (RBC) [Mass/Vol] 30.2 g/dL 28.4 - 34.8 g/dL [place] MCV (RBC) [Entitic vol] 97.9 fL 82.6 - 102.9 fL [place] Monocytes (Bld) [#/Vol] 1.08 10*3/uL [place] Monocytes/100 WBC (Bld) 11 % 3 - 12 % [place] Platelet mean volume (Bld) [Entitic vol] 9.4 fL 8.1 - 13.5 fL [place] Platelets (Bld) [#/Vol] NOT REPORTED [place] Platelets (Bld) [#/Vol] 431 10*3/uL [place] RBC (Bld) [#/Vol] 2.84 10*6/uL Low 3.95 - 5.1 1 m/uL [place] RBC morphology finding Nom (Bld) NOT REPORTED [place] Segmented neutrophils/100 WBC (Bld) 66 % High 36 - 65 % [place] Segs Absolute 6.43 [place] WBC (Bld) [#/Vol] 0.0 10*3/uL 0.0 per 10 0 WBC [place] WBC (Bld) [#/Vol] 9.7 10*3/uL [place] WBC Morphology NOT REPORTED [place] Comprehensive Metabolic Pane riddhi 05-17-2020 Albumin [Mass/Vol] 2.2 g/dL Low 3.5 - 5.2 g/dL [place] Albumin/Globulin [Mass ratio] 0.7 {ratio} [place] ALP [Catalytic activity/Vol] 102 U/L 35 - 104 U/L [place] ALT [Catalytic activity/Vol] 7 U/L 5 - 33 U/L [place] Anion gap [Moles/Vol] 8 mmol/L Low 9 - 17 mmol/L [place] AST [Catalytic activity/Vol] 14 U/L <32 [place] Bilirubin Ql (U) 0.27 mg/dL Low 0.3 - 1.2 mg/dL [place] Bun/Cre Ratio 17 [place] Calcium [Mass/Vol] 8.4 mg/dL Low 8.6 - 10. 4 mg/dL [place] Chloride [Moles/Vol] 100 mmol/L 98 - 10 7 mmol/L [place] CO2 [Moles/Vol] 26 mmol/L 20 - 31 mmol/L [place] Creatinine [Mass/Vol] 1.01 mg/dL High 0.5 - 0.9 mg/dL [place] GFR >60 >60 mL/min [place] GFR Non- 52 mL/min Low >60 [place] Glucose [Mass/Vol] 124 mg/dL High 70 - 99 mg/dL [place] Interpretation and review of laboratory results Abnormal [place] Potassium [Moles/Vol] 4.1 mmol/L 3.7 - 5.3 mmol/L [place] Protein [Mass/Vol] 5.2 g/dL Low 6.4 - 8.3 g/dL [place] Sodium [Moles/Vol] 134 mmol/L Low 135 - 144 mmol/L [place] Urea nitrogen [Mass/Vol] 17 mg/dL 8 - 23 mg/dL [place] Metabolic Panelon 05-17-2020 GFR/1.73 sq M predicted among non-blacks MDRD (S/P/Bld) [Vol rate/Area] [place] Comment on above: Stage 1: Some [...] body mass. Additional eGFR calculator available at: http://www.Velocomp.BrieFix/multiple_crcl_2012.htm HGB,HCTon 05-15-2020 Hematocrit (Bld) [Volume fraction] 26.2 % Low 37.0-47.0 [facility] Comment on above: Performed By: #### C BCWD, BMP, ANION, EGFR1 #### [facility] [address] [place] [address] Hemoglobin (Bld) [Mass/Vol] 8.3 gm/dl Low 12.0-16.0 [facility] Comment on above: Performed By: #### C BCALEKS, BMP, ANION, EGFR1 #### [facility] [address] [place] [address] Hemoglobin and hematocrit, b loodon 05-15-2020 Hematocrit (Bld) [Volume fraction] 26.2 % Low 37 - 47 % [place] Comment on above: Performed at [facility] [address] [place] [address] Hemoglobin (Bld) [Mass/Vol] 8.3 g/dL [place] Interpretation and review of laboratory results Abnormal [place] ANION GAPon 05-14-2020 Anion gap [Moles/Vol] 9.0 mmol/L Normal 8.0-16.0 [facility] Comment on above: Result Comment: ANIO N GAP = Sodium -(Chloride + CO2) Performed By: #### C BCALEKS, BMP, ANION, EGFR1 #### [facility] [address] [place] [address] Anion Gapon 05-14-2020 Anion gap [Moles/Vol] 9.0 mmol/L 8 - 16 meq/L [place] Comment on above: ANION GAP = Sodium - (Chloride + CO2) Performed at [facility] [address] [place] [address] BASIC METABOL PANELon 2019 Calcium [Mass/Vol] 7.6 mg/dL Low 8.5-10.5 [facility] Comment on above: Performed By: #### C BCWD, BMP, ANION, EGFR1 #### [facility] [address] [place] [address] Chloride [Moles/Vol] 105 mmol/L Normal 98-111 [facility] Comment on above: Performed By: #### C BCWD, BMP, ANION, EGFR1 #### [facility] [address] [place] [address] CO2 [Moles/Vol] 24 mmol/L Normal 23-33 [facility] Comment on above: Performed By: #### C BCWD, BMP, ANION, EGFR1 #### [facility] [address] [place] [address] Creatinine [Mass/Vol] 1.1 mg/dL Normal 0.4-1.2 [facility] Comment on above: Performed By: #### C BCWD, BMP, ANION, EGFR1 #### [facility] [address] [place] [address] Glucose [Mass/Vol] 104 mg/dL Normal 70-108 [facility] Comment on above: Performed By: #### C BCWD, BMP, ANION, EGFR1 #### [facility] [address] [place] [address] Potassium [Moles/Vol] 4.0 mmol/L Normal 3.5-5.2 [facility] Comment on above: Performed By: #### C BCWD, BMP, ANION, EGFR1 #### [facility] [address] [place] [address] Sodium [Moles/Vol] 138 mmol/L Normal 135-145 [facility] Comment on above: Performed By: #### C BCWD, BMP, ANION, EGFR1 #### [facility] [address] [place] [address] Urea nitrogen [Mass/Vol] 18 mg/dL Normal 7-22 [facility] Comment on above: Performed By: #### C BCWD, BMP, ANION, EGFR1 #### [facility] [address] [place] [address] Basic Metabolic Panelon 04-27 Calcium [Mass/Vol] 7.6 mg/dL Low 8.5 - 10. 5 mg/dL [place] Comment on above: Performed at [facility] [address] [place] [address] Chloride [Moles/Vol] 105 mmol/L 98 - 11 1 meq/L [place] CO2 [Moles/Vol] 24 mmol/L 23 - 33 meq/L [place] Creatinine [Mass/Vol] 1.1 mg/dL 0.4 - 1.2 mg/dL [place] Glucose [Mass/Vol] 104 mg/dL 70 - 108 mg/dL [place] Potassium [Moles/Vol] 4.0 mmol/L 3.5 - 5.2 meq/L [place] Sodium [Moles/Vol] 138 mmol/L 135 - 145 meq/L [place] Urea nitrogen [Mass/Vol] 18 mg/dL 7 - 22 mg/dL [place] CBC Auto Differentialon 04-27 Basophils (Bld) [#/Vol] 0.0 10*3/uL [place] Basophils/100 WBC (Bld) 0.2 % [place] Eosinophils (Bld) [#/Vol] 0.2 10*3/uL [place] Eosinophils/100 WBC (Bld) 2 % [place] Erythrocyte distribution width (RBC) [Ratio] 15.2 % High 11.5 - 14.5 % [place] Hematocrit (Bld) [Volume fraction] 23.1 % Low 37 - 47 % [place] Hemoglobin (Bld) [Mass/Vol] 7.0 g/dL Critically low [place] Immature Grans (Abs) 0.07 [place] Immature granulocytes (Bld) [#/Vol] 0.7 % [place] Interpretation and review of laboratory results Abnormal [place] Lymphocytes (Bld) [#/Vol] 2.0 10*3/uL [place] Lymphocytes/100 WBC (Bld) 19.6 % [place] MCH (RBC) [Entitic mass] 29.4 pg 26 - 33 pg [place] MCHC (RBC) [Mass/Vol] 30.3 g/dL [place] MCV (RBC) [Entitic vol] 97.1 fL 81 - 99 fL [place] Monocytes (Bld) [#/Vol] 0.9 10*3/uL [place] Monocytes/100 WBC (Bld) 8.4 % [place] Nucleated RBC/100 WBC (Bld) [Ratio] 0 % /100 wbc [place] Pathologist Review Shona VILLAFANA [place] Platelet mean volume (Bld) [Entitic vol] 9.5 fL 9.4 - 12.4 fL [place] Platelets (Bld) [#/Vol] ADEQUATE Adequate [place] Platelets (Bld) [#/Vol] 385 10*3/uL [place] RBC (Bld) [#/Vol] 2.38 10*6/uL [place] RDW-SD 53.4 fL High 35 - 45 fL [place] Rouleaux SLIGHT Absent [place] Comment on above: Performed at [facility] [address] [place] [address] Segmented neutrophils/100 WBC (Bld) 69.1 % [place] Segs Absolute 7.0 [place] WBC (Bld) [#/Vol] 10.2 10*3/uL [place] CBC WITH DIFFERENTIALon 04-27 PATHOLOGIST REVIEWED Shona VILLAFANA Normal [facility] Comment on above: Performed By: #### C BCWD, BMP, ANION, EGFR1 #### [facility] [address] [place] [address] Platelets (Bld) [#/Vol] ADEQUATE Normal Adequate [facility] Comment on above: Performed By: #### C BCWD, BMP, ANION, EGFR1 #### [facility] [address] [place] [address] ROULEAUX SLIGHT Normal Absent [facility] Comment on above: Performed By: #### C BCWD, BMP, ANION, EGFR1 #### [address] [address] ABS IMMATURE GRANS (IG) 0.07 thou/mm3 Normal 0.00-0.07 [facility] Comment on above: Performed By: #### C BCWD, BMP, ANION, EGFR1 #### [address] [address] ABS NEUTROPHILS 7.0 thou/mm3 Normal 1.8-7.7 [facility] Comment on above: Performed By: #### C BCWD, BMP, ANION, EGFR1 #### [address] [address] Basophils (Bld) [#/Vol] 0.0 thou/mm3 Normal 0.0-0.1 [facility] Comment on above: Performed By: #### C BCWD, BMP, ANION, EGFR1 #### [address] [address] Basophils/100 WBC (Bld) 0.2 % Normal [facility] Comment on above: Performed By: #### C BCWD, BMP, ANION, EGFR1 #### [address] [address] Eosinophils (Bld) [#/Vol] 0.2 thou/mm3 Normal 0.0-0.4 [facility] Comment on above: Performed By: #### C BCWD, BMP, ANION, EGFR1 #### [address] [address] Eosinophils/100 WBC (Bld) 2.0 % Normal [facility] Comment on above: Performed By: #### C BCWD, BMP, ANION, EGFR1 #### [facility] [address] [place] [address] Erythrocyte distribution width (RBC) [Ratio] 15.2 % High 11.5-14.5 [facility] Comment on above: Performed By: #### C BCWD, BMP, ANION, EGFR1 #### [facility] [address] [place] [address] Hematocrit (Bld) [Volume fraction] 23.1 % Low 37.0-47.0 [facility] Comment on above: Performed By: #### C BCWD, BMP, ANION, EGFR1 #### [address] [address] Hemoglobin (Bld) [Mass/Vol] 7.0 gm/dl Critically low 12.0-16.0 [facility] Comment on above: Performed By: #### C BCWD, BMP, ANION, EGFR1 #### [address] [address] IMMATURE GRANS (IG) 0.7 % Normal [facility] Comment on above: Performed By: #### C BCWD, BMP, ANION, EGFR1 #### [address] [address] Lymphocytes (Bld) [#/Vol] 2.0 thou/mm3 Normal 1.0-4.8 [facility] Comment on above: Performed By: #### C BCWD, BMP, ANION, EGFR1 #### [address] [address] Lymphocytes/100 WBC (Bld) 19.6 % Normal [facility] Comment on above: Performed By: #### C BCWD, BMP, ANION, EGFR1 #### [address] [address] MCH (RBC) [Entitic mass] 29.4 pg Normal 26.0-33.0 [facility] Comment on above: Performed By: #### C BCWD, BMP, ANION, EGFR1 #### [address] [address] MCHC (RBC) [Mass/Vol] 30.3 gm/dl Low 32.2-35.5 [facility] Comment on above: Performed By: #### C BCWD, BMP, ANION, EGFR1 #### [address] [address] MCV (RBC) [Entitic vol] 97.1 fL Normal 81.0-99.0 [facility] Comment on above: Performed By: #### C BCWD, BMP, ANION, EGFR1 #### [facility] [address] [place] [address] Monocytes (Bld) [#/Vol] 0.9 thou/mm3 Normal 0.4-1.3 [facility] Comment on above: Performed By: #### C BCWD, BMP, ANION, EGFR1 #### [facility] [address] [place] [address] Monocytes/100 WBC (Bld) 8.4 % Normal [facility] Comment on above: Performed By: #### C BCWD, BMP, ANION, EGFR1 #### [facility] [address] [place] [address] Neutrophils/100 WBC (Bld) 69.1 % Normal [facility] Comment on above: Performed By: #### C BCWD, BMP, ANION, EGFR1 #### [facility] [address] [place] [address] Nucleated RBC/100 WBC (Bld) [Ratio] 0 /[address] [facility] Comment on above: Performed By: #### C BCWD, BMP, ANION, EGFR1 #### [facility] [address] [place] [address] Platelet mean volume (Bld) [Entitic vol] 9.5 fL Normal 9.4-12.4 [facility] Comment on above: Performed By: #### C BCWD, BMP, ANION, EGFR1 #### [facility] [address] [place] [address] Platelets (Bld) [#/Vol] 385 thou/mm3 Normal 130-400 [facility] Comment on above: Performed By: #### C BCWD, BMP, ANION, EGFR1 #### [facility] [address] [place] [address] RBC (Bld) [#/Vol] 2.38 mill/mm3 Low 4.20-5.40 [facility] Comment on above: Performed By: #### C BCWD, BMP, ANION, EGFR1 #### [facility] [address] [place] [address] RDW-SD 53.4 fL High 35.0-45.0 [facility] Comment on above: Performed By: #### C BCWD, BMP, ANION, EGFR1 #### [address] [address] WBC (Bld) [#/Vol] 10.2 thou/mm3 Normal 4.8-10.8 [facility] Comment on above: Performed By: #### C BCWD, BMP, ANION, EGFR1 #### [address] [address] GFR, ESTIMATEDon 05-14-2020 GFR/1.73 sq M.predicted MDRD (S/P/Bld) [Vol rate/Area] 47 ml/min/1.73m2 Abnormal [facility] Comment on above: Result Comment: Stag [...] #### C BCWD, BMP, ANION, EGFR1 #### [address] [address] Glomerular Filtration Rate, Estimatedon 05-14-2020 Est, Glom Filt Rate 47 Abnormal ml/min/1 .73 m2 [facility] Comment on above: Stage Description GF [...] Vol. 139 (2) pg 137-147. Performed at [facility] [address] [address] HGB,HCTon 05-14-2020 Hematocrit (Bld) [Volume fraction] 27.1 % Low 37.0-47.0 [facility] Comment on above: Performed By: #### C BCWD, BMP, ANION, EGFR1 #### [facility] [address] [place] [address] Hemoglobin (Bld) [Mass/Vol] 8.2 gm/dl Low 12.0-16.0 [facility] Comment on above: Performed By: #### C BCWD, BMP, ANION, EGFR1 #### [facility] [address] [place] [address] Hemoglobin and hematocrit, b loodon 05-14-2020 Hematocrit (Bld) [Volume fraction] 27.1 % Low 37 - 47 % [place] Comment on above: Performed at [facility] [address] [place] [address] Hemoglobin (Bld) [Mass/Vol] 8.2 g/dL [place] Interpretation and review of laboratory results Abnormal [place] LEUKO-REDUCED RCon 0 -1 IRR LEUKO-REDUCED RC [id number] transfused Normal [facility] Comment on above: Performed By: #### C BCWD, BMP, ANION, EGFR1 #### [facility] [address] [place] [id number] Otheron 05-14-2020 Interpretation and review of laboratory results Abnormal [place] SCAN OF BLOOD SMEARon 2019 SCAN OF BLOOD SMEAR see below Normal [facility] Comment on above: Result Comment: Crit monserrat Exceeded; Scan of Differential Slide Performed Performed By: #### C BCWD, BMP, ANION, EGFR1 #### [facility] [address] [place] [id number] Scan of Blood Smearon 2019 SCAN OF BLOOD SMEAR see below [place] Comment on above: Criteria Exceeded; S can of Differential Slide Performed Performed at [facility] [address] [address] TYPE AND SCREENon 05-14-2020 ABO A [place] Rh Factor Positive [facility] [place] TYPE AND SCREEN CAPTUREon ABO CAPTURE A Normal [facility] Comment on above: Performed By: #### C BCWD, BMP, ANION, EGFR1 #### [facility] [address] [place] [address] INDIRECT AUTUMN CAPTURE Negative Normal [facility] Comment on above: Performed By: #### C BCWD, BMP, ANION, EGFR1 #### [facility] [address] [place] [address] RH CAPTURE (2 D CLONES) Positive Normal S [facility] Comment on above: Performed By: #### C BCWD, BMP, ANION, EGFR1 #### [facility] [address] [place] [address] XR FOOT LEFT (MIN 3 VIEWS)on 05-14-2020 [...] Final result Normal [facility] 1. Osteoporosis. Multifocal degenerative changes. 2. Soft tissue swelling of the foot. Questionable small erosion first metatarsal head versus cortical cyst.. Cannot exclude gout. This report has been created using voice recognition software. It may contain minor errors which are inherent in voice recognition technology. Final report electronically signed by Dr. Rodrick Baker on 05/14/2020 8:45 AM [facility]: XR FOOT LEFT (MIN 3 VIEWS) [...] the first metatarsal head. Cannot exclude gout. [facility] [place], [facility] Incoming Radiant Results From [employer] - 05/14/2020 8:47 AM EDT PROCEDURE: XR [...] Dr. Rodrick Baker on 05/14/2020 8:45 AM [facility] ANION GAPon 05-13-2020 Anion gap [Moles/Vol] 10.0 mmol/L Normal 8.0-16.0 [facility] Comment on above: Result Comment: ANIO N GAP = Sodium -(Chloride + CO2) Performed By: #### C BCWD, BMP, ANION, EGFR1 #### [facility] [address] [place] [address] Anion Gapon 05-13-2020 Anion gap [Moles/Vol] 10.0 mmol/L 8 - 16 meq/L [place] Comment on above: ANION GAP = Sodium - (Chloride + CO2) Performed at [facility] [address] [place] [address] BASIC METABOL PANELon 2019 Calcium [Mass/Vol] 7.8 mg/dL Low 8.5-10.5 [facility] Comment on above: Performed By: #### C BCWD, BMP, ANION, EGFR1 #### [facility] [address] [place] [address] Chloride [Moles/Vol] 102 mmol/L Normal 98-111 [facility] Comment on above: Performed By: #### C BCWD, BMP, ANION, EGFR1 #### [facility] [address] [place] [address] CO2 [Moles/Vol] 23 mmol/L Normal 23-33 [facility] Comment on above: Performed By: #### C BCWD, BMP, ANION, EGFR1 #### [facility] [address] [place] [address] Creatinine [Mass/Vol] 1.0 mg/dL Normal 0.4-1.2 [facility] Comment on above: Performed By: #### C BCWD, BMP, ANION, EGFR1 #### [facility] [address] [place] [address] Glucose [Mass/Vol] 151 mg/dL High 70-108 [facility] Comment on above: Performed By: #### C BCWD, BMP, ANION, EGFR1 #### [facility] [address] [place] [address] Potassium [Moles/Vol] 4.0 mmol/L Normal 3.5-5.2 [facility] Comment on above: Performed By: #### C BCWD, BMP, ANION, EGFR1 #### [facility] [address] [place] [address] Sodium [Moles/Vol] 135 mmol/L Normal 135-145 [facility] Comment on above: Performed By: #### C BCWD, BMP, ANION, EGFR1 #### [facility] [address] [place] [address] Urea nitrogen [Mass/Vol] 18 mg/dL Normal 7-22 [facility] Comment on above: Performed By: #### C BCWD, BMP, ANION, EGFR1 #### [facility] [address] [place] [address] Basic Metabolic Panelon 04-27 Calcium [Mass/Vol] 7.8 mg/dL Low 8.5 - 10. 5 mg/dL [place] Comment on above: Performed at [facility] [address] [place] [address] Chloride [Moles/Vol] 102 mmol/L 98 - 11 1 meq/L [place] CO2 [Moles/Vol] 23 mmol/L 23 - 33 meq/L [place] Creatinine [Mass/Vol] 1 mg/dL 0.4 - 1.2 mg/dL [place] Glucose [Mass/Vol] 151 mg/dL High 70 - 108 mg/dL [place] Potassium [Moles/Vol] 4.0 mmol/L 3.5 - 5.2 meq/L [place] Sodium [Moles/Vol] 135 mmol/L 135 - 145 meq/L [place] Urea nitrogen [Mass/Vol] 18 mg/dL 7 - 22 mg/dL [place] CBC Auto Differentialon 04-27 Basophils (Bld) [#/Vol] 0.0 10*3/uL [place] Basophils/100 WBC (Bld) 0.1 % [place] Eosinophils (Bld) [#/Vol] 0.1 10*3/uL [place] Eosinophils/100 WBC (Bld) 1.3 % [place] Erythrocyte distribution width (RBC) [Ratio] 15.1 % High 11.5 - 14.5 % [place] Hematocrit (Bld) [Volume fraction] 25.0 % Low 37 - 47 % [place] Hemoglobin (Bld) [Mass/Vol] 7.6 g/dL [place] Immature Grans (Abs) 0.12 [place] Immature granulocytes (Bld) [#/Vol] 1 % [place] Interpretation and review of laboratory results Abnormal [place] Lymphocytes (Bld) [#/Vol] 1.5 10*3/uL [place] Lymphocytes/100 WBC (Bld) 13.4 % [place] MCH (RBC) [Entitic mass] 30.0 pg 26 - 33 pg [place] MCHC (RBC) [Mass/Vol] 30.4 g/dL Low [place] MCV (RBC) [Entitic vol] 98.8 fL 81 - 99 fL [place] Monocytes (Bld) [#/Vol] 0.8 10*3/uL [place] Monocytes/100 WBC (Bld) 7.3 % [place] Nucleated RBC/100 WBC (Bld) [Ratio] 0 % /100 wbc [place] Comment on above: Performed at [facility] [address] [place] [address] Platelet mean volume (Bld) [Entitic vol] 9.5 fL 9.4 - 12.4 fL [place] Platelets (Bld) [#/Vol] 396 10*3/uL [place] RBC (Bld) [#/Vol] 2.53 10*6/uL [place] RDW-SD 54.4 fL High 35 - 45 fL [place] Segmented neutrophils/100 WBC (Bld) 76.9 % [place] Segs Absolute 8.8 [place] WBC (Bld) [#/Vol] 11.5 10*3/uL [place] CBC WITH DIFFERENTIALon 04-27 ABS IMMATURE GRANS (IG) 0.12 thou/mm3 High 0.00-0.07 [facility] Comment on above: Performed By: #### C BCWD, BMP, ANION, EGFR1 #### [facility] [address] [place] [address] ABS NEUTROPHILS 8.8 thou/mm3 High 1.8-7.7 [facility] Comment on above: Performed By: #### C BCWD, BMP, ANION, EGFR1 #### [facility] [address] [place] [address] Basophils (Bld) [#/Vol] 0.0 thou/mm3 Normal 0.0-0.1 [facility] Comment on above: Performed By: #### C BCWD, BMP, ANION, EGFR1 #### [facility] [address] [place] [address] Basophils/100 WBC (Bld) 0.1 % Normal [facility] Comment on above: Performed By: #### C BCWD, BMP, ANION, EGFR1 #### [address] [address] Eosinophils (Bld) [#/Vol] 0.1 thou/mm3 Normal 0.0-0.4 [facility] Comment on above: Performed By: #### C BCWD, BMP, ANION, EGFR1 #### [facility] [address] [place] [address] Eosinophils/100 WBC (Bld) 1.3 % Normal [facility] Comment on above: Performed By: #### C BCWD, BMP, ANION, EGFR1 #### [address] [address] Erythrocyte distribution width (RBC) [Ratio] 15.1 % High 11.5-14.5 [facility] Comment on above: Performed By: #### C BCWD, BMP, ANION, EGFR1 #### [facility] [address] [place] [address] Hematocrit (Bld) [Volume fraction] 25.0 % Low 37.0-47.0 [facility] Comment on above: Performed By: #### C BCWD, BMP, ANION, EGFR1 #### [facility] [address] [place] [address] Hemoglobin (Bld) [Mass/Vol] 7.6 gm/dl Low 12.0-16.0 [facility] Comment on above: Performed By: #### C BCWD, BMP, ANION, EGFR1 #### [address] [address] IMMATURE GRANS (IG) 1.0 % Normal [facility] Comment on above: Performed By: #### C BCWD, BMP, ANION, EGFR1 #### [address] [address] Lymphocytes (Bld) [#/Vol] 1.5 thou/mm3 Normal 1.0-4.8 [facility] Comment on above: Performed By: #### C BCWD, BMP, ANION, EGFR1 #### [place] [address] Lymphocytes/100 WBC (Bld) 13.4 % Normal [facility] Comment on above: Performed By: #### C BCWD, BMP, ANION, EGFR1 #### [place] [address] MCH (RBC) [Entitic mass] 30.0 pg Normal 26.0-33.0 [facility] Comment on above: Performed By: #### C BCWD, BMP, ANION, EGFR1 #### [place] [address] MCHC (RBC) [Mass/Vol] 30.4 gm/dl Low 32.2-35.5 [facility] Comment on above: Performed By: #### C BCWD, BMP, ANION, EGFR1 #### [address] [address] MCV (RBC) [Entitic vol] 98.8 fL Normal 81.0-99.0 [facility] Comment on above: Performed By: #### C BCWD, BMP, ANION, EGFR1 #### [address] [address] Monocytes (Bld) [#/Vol] 0.8 thou/mm3 Normal 0.4-1.3 [facility] Comment on above: Performed By: #### C BCWD, BMP, ANION, EGFR1 #### [place] [id number] Monocytes/100 WBC (Bld) 7.3 % Normal [facility] Comment on above: Performed By: #### C BCWD, BMP, ANION, EGFR1 #### [address] [address] Neutrophils/100 WBC (Bld) 76.9 % Normal [facility] Comment on above: Performed By: #### C BCWD, BMP, ANION, EGFR1 #### [facility] [address] [place] [address] Nucleated RBC/100 WBC (Bld) [Ratio] 0 /[address] [facility] Comment on above: Performed By: #### C BCWD, BMP, ANION, EGFR1 #### [facility] [address] [place] [address] Platelet mean volume (Bld) [Entitic vol] 9.5 fL Normal 9.4-12.4 [facility] Comment on above: Performed By: #### C BCWD, BMP, ANION, EGFR1 #### [facility] [address] [place] [address] Platelets (Bld) [#/Vol] 396 thou/mm3 Normal 130-400 [facility] Comment on above: Performed By: #### C BCWD, BMP, ANION, EGFR1 #### [facility] [address] [place] [address] RBC (Bld) [#/Vol] 2.53 mill/mm3 Low 4.20-5.40 [facility] Comment on above: Performed By: #### C BCWD, BMP, ANION, EGFR1 #### [facility] [address] [place] [address] RDW-SD 54.4 fL High 35.0-45.0 [facility] Comment on above: Performed By: #### C BCWD, BMP, ANION, EGFR1 #### [facility] [address] [place] [address] WBC (Bld) [#/Vol] 11.5 thou/mm3 High 4.8-10.8 [facility] Comment on above: Performed By: #### C BCWD, BMP, ANION, EGFR1 #### [facility] [address] [place] [address] GFR, ESTIMATEDon 05-13-2020 GFR/1.73 sq M.predicted MDRD (S/P/Bld) [Vol rate/Area] 53 ml/min/1.73m2 Abnormal [facility] Comment on above: Result Comment: Stag [...] #### C BCWD, BMP, ANION, EGFR1 #### [facility] [address] [place] [address] Glomerular Filtration Rate, Estimatedon 05-13-2020 Est, Glom Filt Rate 53 Abnormal ml/min/1 .73 m2 [place] Comment on above: Stage Description GF [...] Vol. 139 (2) pg 137-147. Performed at [facility] [address] [place] [address] Otheron 05-13-2020 Interpretation and review of laboratory results Abnormal [place] ANION GAPon 05-12-2020 Anion gap [Moles/Vol] 8.0 mmol/L Normal 8.0-16.0 [facility] Comment on above: Result Comment: ANIO N GAP = Sodium -(Chloride + CO2) Performed By: #### B MP, ANION, EGFR1, CBCWD #### [facility] [address] [place] [address] Anion Gapon 05-12-2020 Anion gap [Moles/Vol] 8.0 mmol/L 8 - 16 meq/L [place] Comment on above: ANION GAP = Sodium - (Chloride + CO2) Performed at [facility] [address] [place] [address] BASIC METABOL PANELon 2019 Calcium [Mass/Vol] 7.7 mg/dL Low 8.5-10.5 [facility] Comment on above: Performed By: #### B MP, ANION, EGFR1, CBCWD #### [facility] [address] [place] [address] Chloride [Moles/Vol] 105 mmol/L Normal 98-111 [facility] Comment on above: Performed By: #### B MP, ANION, EGFR1, CBCWD #### [facility] [address] [place] [address] CO2 [Moles/Vol] 24 mmol/L Normal 23-33 [facility] Comment on above: Performed By: #### B MP, ANION, EGFR1, CBCWD #### [facility] [address] [place] [address] Creatinine [Mass/Vol] 1.1 mg/dL Normal 0.4-1.2 [facility] Comment on above: Performed By: #### B MP, ANION, EGFR1, CBCWD #### [facility] [address] [place] [address] Glucose [Mass/Vol] 123 mg/dL High 70-108 [facility] Comment on above: Performed By: #### B MP, ANION, EGFR1, CBCWD #### [facility] [address] [place] [address] Potassium [Moles/Vol] 3.9 mmol/L Normal 3.5-5.2 [facility] Comment on above: Performed By: #### B MP, ANION, EGFR1, CBCWD #### [facility] [address] [place] [address] Sodium [Moles/Vol] 137 mmol/L Normal 135-145 [facility] Comment on above: Performed By: #### B MP, ANION, EGFR1, CBCWD #### [facility] [address] [place] [address] Urea nitrogen [Mass/Vol] 20 mg/dL Normal 7-22 [facility] Comment on above: Performed By: #### B MP, ANION, EGFR1, CBCWD #### [facility] [address] [place] [address] Basic Metabolic Panelon 04-27 Calcium [Mass/Vol] 7.7 mg/dL Low 8.5 - 10. 5 mg/dL [place] Comment on above: Performed at [facility] [address] [place] [address] Chloride [Moles/Vol] 105 mmol/L 98 - 11 1 meq/L [place] CO2 [Moles/Vol] 24 mmol/L 23 - 33 meq/L [place] Creatinine [Mass/Vol] 1.1 mg/dL 0.4 - 1.2 mg/dL [place] Glucose [Mass/Vol] 123 mg/dL High 70 - 108 mg/dL [place] Potassium [Moles/Vol] 3.9 mmol/L 3.5 - 5.2 meq/L [place] Sodium [Moles/Vol] 137 mmol/L 135 - 145 meq/L [place] Urea nitrogen [Mass/Vol] 20 mg/dL 7 - 22 mg/dL [place] Bladder scanon 05-12-2020 Dora Costa 05/12/2020 1:12 PM Bladder scan was completed by Sadie Costa at 1245pm. The residual amount of 725ml was resulted to Mirza WESLEY. [place] Flora Nesbitt 05/12/2020 12:25 AM A Bladder scan was performed at 0021 . The patient's last void was at has not voided since she was straight cathed at 15:30. The residual amount was measured to be 656 ML. Report of results was given to Missy WESLEY. [place] CBC Auto Differentialon 04-27 Basophils (Bld) [#/Vol] 0.0 10*3/uL [place] Basophils/100 WBC (Bld) 0.1 % [place] Eosinophils (Bld) [#/Vol] 0.2 10*3/uL [place] Eosinophils/100 WBC (Bld) 2.4 % [place] Erythrocyte distribution width (RBC) [Ratio] 15 % High 11.5 - 14.5 % [place] Hematocrit (Bld) [Volume fraction] 24.8 % Low 37 - 47 % [place] Hemoglobin (Bld) [Mass/Vol] 7.4 g/dL [place] Immature Grans (Abs) 0.06 [place] Immature granulocytes (Bld) [#/Vol] 0.6 % [place] Interpretation and review of laboratory results Abnormal [place] Lymphocytes (Bld) [#/Vol] 1.4 10*3/uL [place] Lymphocytes/100 WBC (Bld) 14.9 % [place] MCH (RBC) [Entitic mass] 29.4 pg 26 - 33 pg [place] MCHC (RBC) [Mass/Vol] 29.8 g/dL [place] MCV (RBC) [Entitic vol] 98.4 fL 81 - 99 fL [place] Monocytes (Bld) [#/Vol] 0.9 10*3/uL [place] Monocytes/100 WBC (Bld) 8.9 % [place] Nucleated RBC/100 WBC (Bld) [Ratio] 0 % /100 wbc [place] Comment on above: Performed at [facility] [address] [place] [address] Platelet mean volume (Bld) [Entitic vol] 9.6 fL 9.4 - 12.4 fL [place] Platelets (Bld) [#/Vol] 370 10*3/uL [place] RBC (Bld) [#/Vol] 2.52 10*6/uL [place] RDW-SD 54 fL High 35 - 45 fL [place] Segmented neutrophils/100 WBC (Bld) 73.1 % [place] Segs Absolute 7.0 [place] WBC (Bld) [#/Vol] 9.6 10*3/uL [place] CBC WITH DIFFERENTIALon 04-27 ABS IMMATURE GRANS (IG) 0.06 thou/mm3 Normal 0.00-0.07 [facility] Comment on above: Performed By: #### B MP, ANION, EGFR1, CBCWD #### [facility] [address] [place] [address] ABS NEUTROPHILS 7.0 thou/mm3 Normal 1.8-7.7 [facility] Comment on above: Performed By: #### B MP, ANION, EGFR1, CBCWD #### [facility] [address] [place] [address] Basophils (Bld) [#/Vol] 0.0 thou/mm3 Normal 0.0-0.1 [facility] Comment on above: Performed By: #### B MP, ANION, EGFR1, CBCWD #### [facility] [address] [place] [address] Basophils/100 WBC (Bld) 0.1 % Normal [facility] Comment on above: Performed By: #### B MP, ANION, EGFR1, CBCWD #### [facility] [address] [place] [address] Eosinophils (Bld) [#/Vol] 0.2 thou/mm3 Normal 0.0-0.4 [facility] Comment on above: Performed By: #### B MP, ANION, EGFR1, CBCWD #### [facility] [address] [place] [address] Eosinophils/100 WBC (Bld) 2.4 % Normal [facility] Comment on above: Performed By: #### B MP, ANION, EGFR1, CBCWD #### [facility] [address] [place] [address] Erythrocyte distribution width (RBC) [Ratio] 15.0 % High 11.5-14.5 [facility] Comment on above: Performed By: #### B MP, ANION, EGFR1, CBCWD #### [facility] [address] [place] [address] Hematocrit (Bld) [Volume fraction] 24.8 % Low 37.0-47.0 [facility] Comment on above: Performed By: #### B MP, ANION, EGFR1, CBCWD #### [address] [address] Hemoglobin (Bld) [Mass/Vol] 7.4 gm/dl Low 12.0-16.0 [facility] Comment on above: Performed By: #### B MP, ANION, EGFR1, CBCWD #### [place] [address] IMMATURE GRANS (IG) 0.6 % Normal [facility] Comment on above: Performed By: #### B MP, ANION, EGFR1, CBCWD #### [place] [address] Lymphocytes (Bld) [#/Vol] 1.4 thou/mm3 Normal 1.0-4.8 [facility] Comment on above: Performed By: #### B MP, ANION, EGFR1, CBCWD #### [place] [address] Lymphocytes/100 WBC (Bld) 14.9 % Normal [facility] Comment on above: Performed By: #### B MP, ANION, EGFR1, CBCWD #### [address] [address] MCH (RBC) [Entitic mass] 29.4 pg Normal 26.0-33.0 [facility] Comment on above: Performed By: #### B MP, ANION, EGFR1, CBCWD #### [facility] [address] [place] [address] MCHC (RBC) [Mass/Vol] 29.8 gm/dl Low 32.2-35.5 [facility] Comment on above: Performed By: #### B MP, ANION, EGFR1, CBCWD #### [address] [address] MCV (RBC) [Entitic vol] 98.4 fL Normal 81.0-99.0 [facility] Comment on above: Performed By: #### B MP, ANION, EGFR1, CBCWD #### [facility] [address] [place] [address] Monocytes (Bld) [#/Vol] 0.9 thou/mm3 Normal 0.4-1.3 [facility] Comment on above: Performed By: #### B MP, ANION, EGFR1, CBCWD #### [facility] [address] [place] [address] Monocytes/100 WBC (Bld) 8.9 % Normal [facility] Comment on above: Performed By: #### B MP, ANION, EGFR1, CBCWD #### [address] [address] Neutrophils/100 WBC (Bld) 73.1 % Normal [facility] Comment on above: Performed By: #### B MP, ANION, EGFR1, CBCWD #### [facility] [address] [place] [address] Nucleated RBC/100 WBC (Bld) [Ratio] 0 /[address] [facility] Comment on above: Performed By: #### B MP, ANION, EGFR1, CBCWD #### [facility]ending [facility] [address] [place] [address] Platelet mean volume (Bld) [Entitic vol] 9.6 fL Normal 9.4-12.4 [facility] Comment on above: Performed By: #### B MP, ANION, EGFR1, CBCWD #### [facility] [address] [place] [address] Platelets (Bld) [#/Vol] 370 thou/mm3 Normal 130-400 [facility] Comment on above: Performed By: #### B MP, ANION, EGFR1, CBCWD #### [facility] [address] [place] [address] RBC (Bld) [#/Vol] 2.52 mill/mm3 Low 4.20-5.40 [facility] Comment on above: Performed By: #### B MP, ANION, EGFR1, CBCWD #### [facility] [address] [place] [address] RDW-SD 54.0 fL High 35.0-45.0 [facility] Comment on above: Performed By: #### B MP, ANION, EGFR1, CBCWD #### [facility] [address] [place] [address] WBC (Bld) [#/Vol] 9.6 thou/mm3 Normal 4.8-10.8 [facility] Comment on above: Performed By: #### B MP, ANION, EGFR1, CBCWD #### [facility] [address] [place] [address] GFR, ESTIMATEDon 05-12-2020 GFR/1.73 sq M.predicted MDRD (S/P/Bld) [Vol rate/Area] 47 ml/min/1.73m2 Abnormal [facility] Comment on above: Result Comment: Stag [...] #### B MP, ANION, EGFR1, CBCWD #### [facility] [address] [place] [address] Glomerular Filtration Rate, Estimatedon 05-12-2020 Est, Glom Filt Rate 47 Abnormal ml/min/1 .73 m2 [facility], [place] Comment on above: Stage Description GF [...] Vol. 139 (2) pg 137-147. Performed at [facility] [address] [place] [address] Otheron 05-12-2020 Interpretation and review of laboratory results Abnormal [place] ANION GAPon 05-11-2020 Anion gap [Moles/Vol] 11.0 mmol/L Normal 8.0-16.0 [facility] Comment on above: Result Comment: ANIO N GAP = Sodium -(Chloride + CO2) Performed By: #### C BCWD, BMP, ANION, EGFR1 #### [facility] [address] [place] [address] Anion Gapon 05-11-2020 Anion gap [Moles/Vol] 11.0 mmol/L 8 - 16 meq/L [place] Comment on above: ANION GAP = Sodium - (Chloride + CO2) Performed at [facility] [address] [place] [address] BASIC METABOL PANELon 2019 Calcium [Mass/Vol] 8.1 mg/dL Low 8.5-10.5 [facility] Comment on above: Performed By: #### C BCWD, BMP, ANION, EGFR1 #### [facility] [address] [place] [address] Chloride [Moles/Vol] 107 mmol/L Normal 98-111 [facility] Comment on above: Performed By: #### C BCWD, BMP, ANION, EGFR1 #### [facility] Pending [facility] [address] [place] [address] CO2 [Moles/Vol] 24 mmol/L Normal 23-33 [facility] Comment on above: Performed By: #### C BCWD, BMP, ANION, EGFR1 #### [facility] [address] [place] [address] Creatinine [Mass/Vol] 1.1 mg/dL Normal 0.4-1.2 [facility] Comment on above: Performed By: #### C BCWD, BMP, ANION, EGFR1 #### [facility] [address] [place] [address] Glucose [Mass/Vol] 131 mg/dL High 70-108 [facility] [facility] Comment on above: Performed By: #### C BCWD, BMP, ANION, EGFR1 #### [facility] [address] [place] [address] Potassium [Moles/Vol] 4.3 mmol/L Normal 3.5-5.2 [facility] Comment on above: Performed By: #### C BCWD, BMP, ANION, EGFR1 #### [facility] [address] [place] [address] Sodium [Moles/Vol] 142 mmol/L Normal 135-145 [facility] Comment on above: Performed By: #### C BCWD, BMP, ANION, EGFR1 #### [facility] [address] [place] [address] Urea nitrogen [Mass/Vol] 23 mg/dL High 7-22 [facility] Comment on above: Performed By: #### C BCWD, BMP, ANION, EGFR1 #### [facility] [address] [place] [address] Basic Metabolic Panelon 04-27 Calcium [Mass/Vol] 8.1 mg/dL Low 8.5 - 10. 5 mg/dL [place] Comment on above: Performed at [facility] [address] [place] [address] Chloride [Moles/Vol] 107 mmol/L 98 - 11 1 meq/L [facility], [place] CO2 [Moles/Vol] 24 mmol/L 23 - 33 meq/L [place] Creatinine [Mass/Vol] 1.1 mg/dL 0.4 - 1.2 mg/dL [place] Glucose [Mass/Vol] 131 mg/dL High 70 - 108 mg/dL [place] Potassium [Moles/Vol] 4.3 mmol/L 3.5 - 5.2 meq/L [facility], [place] Sodium [Moles/Vol] 142 mmol/L 135 - 145 meq/L [place] Urea nitrogen [Mass/Vol] 23 mg/dL High 7 - 22 mg/dL [facility], [place] Bladder scanon 05-11-2020 Dora Costa 05/11/2020 3:29 PM Bladder scan was completed by Sadie Costa at 1505. The residual amount of 770ml was resulted to Franca WESLEY. [place] CBC Auto Differentialon 04-27 Basophils (Bld) [#/Vol] 0.0 10*3/uL [place] Basophils/100 WBC (Bld) 0.2 % [place] Eosinophils (Bld) [#/Vol] 0.1 10*3/uL [place] Eosinophils/100 WBC (Bld) 0.7 % [place] Erythrocyte distribution width (RBC) [Ratio] 15.5 % High 11.5 - 14.5 % [place] Hematocrit (Bld) [Volume fraction] 30.3 % Low 37 - 47 % [place] Hemoglobin (Bld) [Mass/Vol] 8.9 g/dL [place] Immature Grans (Abs) 0.05 [place] Immature granulocytes (Bld) [#/Vol] 0.5 % [place] Interpretation and review of laboratory results Abnormal [place] Lymphocytes (Bld) [#/Vol] 1.4 10*3/uL [place] Lymphocytes/100 WBC (Bld) 14.7 % [place] MCH (RBC) [Entitic mass] 29.5 pg 26 - 33 pg [place] MCHC (RBC) [Mass/Vol] 29.4 g/dL [place] MCV (RBC) [Entitic vol] 100.3 fL High 81 - 99 fL [place] Monocytes (Bld) [#/Vol] 0.9 10*3/uL [place] Monocytes/100 WBC (Bld) 9.6 % [place] Nucleated RBC/100 WBC (Bld) [Ratio] 0 % /100 wbc [place] Comment on above: Performed at [facility] [address] [place] [address] Platelet mean volume (Bld) [Entitic vol] 9.5 fL 9.4 - 12.4 fL [place] Platelets (Bld) [#/Vol] 445 10*3/uL [place] RBC (Bld) [#/Vol] 3.02 10*6/uL [place] RDW-SD 57.2 fL High 35 - 45 fL [place] Segmented neutrophils/100 WBC (Bld) 74.3 % [place] Segs Absolute 7.2 [place] WBC (Bld) [#/Vol] 9.7 10*3/uL [place] CBC WITH DIFFERENTIALon 04-27 ABS IMMATURE GRANS (IG) 0.05 thou/mm3 Normal 0.00-0.07 [facility] Comment on above: Performed By: #### C BCWD, BMP, ANION, EGFR1 #### [facility] [address] [place] [address] ABS NEUTROPHILS 7.2 thou/mm3 Normal 1.8-7.7 [facility] Comment on above: Performed By: #### C BCWD, BMP, ANION, EGFR1 #### [facility] [address] [place] [address] Basophils (Bld) [#/Vol] 0.0 thou/mm3 Normal 0.0-0.1 [facility] Comment on above: Performed By: #### C BCWD, BMP, ANION, EGFR1 #### [facility] [address] [place] [address] Basophils/100 WBC (Bld) 0.2 % Normal [facility] Comment on above: Performed By: #### C BCWD, BMP, ANION, EGFR1 #### [facility] [address] [place] [address] Eosinophils (Bld) [#/Vol] 0.1 thou/mm3 Normal 0.0-0.4 [facility] Comment on above: Performed By: #### C BCWD, BMP, ANION, EGFR1 #### [facility] [address] [place] [address] Eosinophils/100 WBC (Bld) 0.7 % Normal [facility] Comment on above: Performed By: #### C BCWD, BMP, ANION, EGFR1 #### [address] [address] Erythrocyte distribution width (RBC) [Ratio] 15.5 % High 11.5-14.5 [facility] Comment on above: Performed By: #### C BCWD, BMP, ANION, EGFR1 #### [address] [address] Hematocrit (Bld) [Volume fraction] 30.3 % Low 37.0-47.0 [facility] Comment on above: Performed By: #### C BCWD, BMP, ANION, EGFR1 #### [place] [id number] Hemoglobin (Bld) [Mass/Vol] 8.9 gm/dl Low 12.0-16.0 [facility] Comment on above: Performed By: #### C BCWD, BMP, ANION, EGFR1 #### [place] [id number] IMMATURE GRANS (IG) 0.5 % Normal [facility] Comment on above: Performed By: #### C BCWD, BMP, ANION, EGFR1 #### [address] [address] Lymphocytes (Bld) [#/Vol] 1.4 thou/mm3 Normal 1.0-4.8 [facility] Comment on above: Performed By: #### C BCWD, BMP, ANION, EGFR1 #### [address] [address] Lymphocytes/100 WBC (Bld) 14.7 % Normal [facility] Comment on above: Performed By: #### C BCWD, BMP, ANION, EGFR1 #### [facility] [employer] [address] [place] [address] MCH (RBC) [Entitic mass] 29.5 pg Normal 26.0-33.0 [facility] Comment on above: Performed By: #### C BCWD, BMP, ANION, EGFR1 #### [facility] [employer] [address] [place] [address] MCHC (RBC) [Mass/Vol] 29.4 gm/dl Low 32.2-35.5 [facility] Comment on above: Performed By: #### C BCWD, BMP, ANION, EGFR1 #### [facility] [employer] [address] [place] [address] MCV (RBC) [Entitic vol] 100.3 fL High 81.0-99.0 [facility] Comment on above: Performed By: #### C BCWD, BMP, ANION, EGFR1 #### [facility] [address] [address] Monocytes (Bld) [#/Vol] 0.9 thou/mm3 Normal 0.4-1.3 [facility] Comment on above: Performed By: #### C BCWD, BMP, ANION, EGFR1 #### [address] [address] Monocytes/100 WBC (Bld) 9.6 % Normal [facility] Comment on above: Performed By: #### C BCWD, BMP, ANION, EGFR1 #### [facility] [employer] [address] [place] [address] Neutrophils/100 WBC (Bld) 74.3 % Normal [facility] Comment on above: Performed By: #### C BCWD, BMP, ANION, EGFR1 #### [address] [address] Nucleated RBC/100 WBC (Bld) [Ratio] 0 /[address] [facility] Comment on above: Performed By: #### C BCWD, BMP, ANION, EGFR1 #### [facility] [address] [place] [address] Platelet mean volume (Bld) [Entitic vol] 9.5 fL Normal 9.4-12.4 [facility] Comment on above: Performed By: #### C BCWD, BMP, ANION, EGFR1 #### [facility] [address] [place] [address] Platelets (Bld) [#/Vol] 445 thou/mm3 High 130-400 [facility] Comment on above: Performed By: #### C BCWD, BMP, ANION, EGFR1 #### [facility] [address] [place] [address] RBC (Bld) [#/Vol] 3.02 mill/mm3 Low 4.20-5.40 [facility] Comment on above: Performed By: #### C BCWD, BMP, ANION, EGFR1 #### [facility] [address] [place] [address] RDW-SD 57.2 fL High 35.0-45.0 [facility] Comment on above: Performed By: #### C BCWD, BMP, ANION, EGFR1 #### [facility] [address] [place] [address] WBC (Bld) [#/Vol] 9.7 thou/mm3 Normal 4.8-10.8 [facility] Comment on above: Performed By: #### C BCWD, BMP, ANION, EGFR1 #### [address] [address] GFR, ESTIMATEDon 05-11-2020 GFR/1.73 sq M.predicted MDRD (S/P/Bld) [Vol rate/Area] 47 ml/min/1.73m2 Abnormal [facility] Comment on above: Result Comment: Stag [...] #### C BCWD, BMP, ANION, EGFR1 #### [address] [address] Glomerular Filtration Rate, Estimatedon 05-11-2020 Est, Glom Filt Rate 47 Abnormal ml/min/1 .73 m2 [facility], [place] Comment on above: Stage Description GF R, [...] Vol. 139 (2) pg 137-147. Performed at [facility] [address] [place] [address] Otheron 05-11-2020 Interpretation and review of laboratory results Abnormal [facility] [place] AER/ANAEROBIC CULTUREon 04-27 AER/ANAEROBIC CULTURE MICROBIOLOGY [facility], [address] [place] [address], [place], [address] PATIENT: JESÚS NOLAN LOCATION: [facility] -A : 1935 AGE: 84 SEX: F ADM: 05/10/20 Att. Physician: CHELE LAGOS Order Id: [id number] Req. Physician: CHELE LAGOS Source: tissue Site: [...] 8 h 5-7 >=100 Trimethoprim/Vargas <=20 S [id number]/800mgSMX q 12h 1-2TMP/[id number]/ 97SM IV 160mgTMP/800mgSMX q 8 h9TMP/105 SMX [...] 8 h 5-7 >=100 Trimethoprim/Vargas <=20 S [id number]/800mgSMX q 12h 1-2TMP/[id number]/ 97SM IV 160mgTMP/800mgSMX q 8 h9TMP/105 SMX S=Susceptible I=Intermediate R=Resistant Susceptibility is determined by comparing the ALAN of organism to the achievable blood or urine level of drug. Level at the site of infection should be a minimum of 5-10 times the ALAN. ALAN and blood and urine levels=mcg/ml.*Standar d dosages from [place] Guide to Antimicrobial Therapy and assumes moderate infection in normal adult populations. For pts. with renal or liver disease consult PDR or pharmacist. Normal [facility] COVID-19on 05-10-2020 COVID-19 BY RT-PCR NOT DETECTED Normal NOT DETECT [facility] Comment on above: Result Comment: This test [...] METHODOLOGY: RT-PCR Performed By: #### C GLENN, BMP, ANION, EGFR1 #### [facility] [address] [place] [address] SARS-CoV-2, PCR NOT DETECTED NOT DETECT [facility] Comment on above: This test has been [...] or revoked sooner. METHODOLOGY: RT-PCR Performed at [facility] [address] [place] [address] TYPE AND SCREENon 05-10-2020 [facility]BO A [facility] Positive [facility] [place] TYPE AND SCREEN CAPTUREon ABO CAPTURE A Normal [facility] Comment on above: Performed By: #### C BCWD, BMP, ANION, EGFR1 #### [facility] [address] [place] [address] INDIRECT AUTUMN CAPTURE Negative Normal [facility] Comment on above: Performed By: #### C BCWD, BMP, ANION, EGFR1 #### [facility] [address] [place] [address] RH CAPTURE (2 D CLONES) Positive Normal [facility] Comment on above: Performed By: #### C BCWD, BMP, ANION, EGFR1 #### [facility] [address] [place] [address] XR HIP LEFT (2-3 VIEWS)on XR HIP [...] Final result Normal [facility] [place], [facility] Incoming Radiant Results From [employer] - 05/10/2020 3:32 PM EDT PROCEDURE: XR [...] Dr Benson Edwards on 05/10/2020 3:30 PM [employer] [place] PROCEDURE: XR HIP LE FT (2-3 VIEWS) [...] of the arthroplasty likely related to surgery. [employer] [facility] [employer] Status post left tot al hip arthroplasty. This report has been created using voice recognition software. It may contain minor errors which are inherent in voice recognition technology. Final report electronically signed by Dr Benson Edawrds on 05/10/2020 3:30 PM [employer] Basic Metabolic Panelon 04-27 Anion gap [Moles/Vol] 10 mmol/L 9 - 17 mmol/L [facility] [employer] Bun/Cre Ratio 20 [facility] [place] Calcium [Mass/Vol] 8.9 mg/dL 8.6 - 10. 4 mg/dL [place] Chloride [Moles/Vol] 105 mmol/L 98 - 10 7 mmol/L [place] CO2 [Moles/Vol] 27 mmol/L 20 - 31 mmol/L [place] Creatinine [Mass/Vol] 1.12 mg/dL High 0.5 - 0.9 mg/dL [place] GFR 56 mL/min Low >60 [place] GFR Non- 47 mL/min Low >60 [place] Glucose [Mass/Vol] 110 mg/dL High 70 - 99 mg/dL [place] Interpretation and review of laboratory results Abnormal [place] Potassium [Moles/Vol] 3.8 mmol/L 3.7 - 5.3 mmol/L [place] Sodium [Moles/Vol] 142 mmol/L 135 - 144 mmol/L [place] Urea nitrogen [Mass/Vol] 22 mg/dL 8 - 23 mg/dL [place] CBCon 05-09-2020 Erythrocyte distribution width (RBC) [Ratio] 15.5 % High 11.8 - 14.4 % [place] Hematocrit (Bld) [Volume fraction] 34.3 % Low 36.3 - 47.1 % [place] Hemoglobin (Bld) [Mass/Vol] 10.2 g/dL Low 11.9 - 15.1 g/dL [place] Interpretation and review of laboratory results Abnormal [place] MCH (RBC) [Entitic mass] 29.4 pg 25. 2 - 33.5 pg [place] MCHC (RBC) [Mass/Vol] 29.7 g/dL 28.4 - 34.8 g/dL [place] MCV (RBC) [Entitic vol] 98.8 fL 82.6 - 102.9 fL [place] Platelet mean volume (Bld) [Entitic vol] 9.4 fL 8.1 - 13.5 fL [place] Platelets (Bld) [#/Vol] 512 10*3/uL [place] RBC (Bld) [#/Vol] 3.47 10*6/uL Low 3.95 - 5.1 1 m/uL [place] WBC (Bld) [#/Vol] 0.0 10*3/uL 0.0 per 10 0 WBC [place] WBC (Bld) [#/Vol] 8.6 10*3/uL [place] Metabolic Panelon 05-09-2020 GFR/1.73 sq M predicted among non-blacks MDRD (S/P/Bld) [Vol rate/Area] [place] Comment on above: Stage 1: Some [...] body mass. Additional eGFR calculator available at: http://www.[employer]/multiple_crcl_2012.htm Microscopic Urinalysison Amorphous, UA NOT REPORTED None [place] Bacteria, UA 2+ Abnormal None [place] Casts UA NOT REPORTED /LPF [place] Crystals, UA NOT REPORTED None /HPF [place] Epithelial Cells UA 0 TO 2 [place] Interpretation and review of laboratory results Abnormal [place] Mucus, UA NOT REPORTED None [place] Other Observations UA NOT REPORTED NOT REQ. [place] RBC (U) [#/Vol] 5 TO 10 [place] Renal Epithelial, UA 0 TO 2 0 /HPF [place] Trichomonas, UA NOT REPORTED None [place] WBC, UA 50 TO 100 [place] Yeast, UA NOT REPORTED None [place] Urinalysison 05-08-2020 Bilirubin Urine Negative NEGATIVE [place] Color, UA YELLOW YELLOW [place] Glucose, Ur Negative NEGATIVE [place] Interpretation and review of laboratory results Abnormal [place] Ketones Ql (U) Negative NEGATIVE [place] Leukocyte esterase Test strip Ql (U) MODERATE Abnormal NEGATIVE [place] Nitrite, Urine Negative NEGATIVE [place] pH, UA 6.5 [place] Protein (U) [Mass/Vol] TRACE Abnormal NEGATIVE [place] Specific [place], UA 1.020 [place] Turbidity UA SLIGHTLY CLOUDY Abnormal CLEAR [place] Urinalysis Comments NOT REPORTED [place] Urine Hgb 2+ Abnormal NEGATIVE [place] Urobilinogen, Urine Normal Normal [place] Basic Metabolic Panelon Anion gap [Moles/Vol] 17 mmol/L 9 - 17 mmol/L [place] Bun/Cre Ratio 20 [place] Calcium [Mass/Vol] 9.2 mg/dL 8.6 - 10. 4 mg/dL [place] Chloride [Moles/Vol] 97 mmol/L Low 98 - 10 7 mmol/L [place] CO2 [Moles/Vol] 23 mmol/L 20 - 31 mmol/L [place] Creatinine [Mass/Vol] 1.29 mg/dL High 0.5 - 0.9 mg/dL [place] GFR 48 mL/min Low >60 [place] GFR Non- 40 mL/min Low >60 [place] Glucose [Mass/Vol] 209 mg/dL High 70 - 99 mg/dL [place] Interpretation and review of laboratory results Abnormal [place] Potassium [Moles/Vol] 3.7 mmol/L 3.7 - 5.3 mmol/L [place] Sodium [Moles/Vol] 137 mmol/L 135 - 144 mmol/L [place] Urea nitrogen [Mass/Vol] 26 mg/dL High 8 - 23 mg/dL [place] CBC Auto Differentialon Basophils (Bld) [#/Vol] 10*3/uL [place] Basophils/100 WBC (Bld) 0 % 0 - 2 % [place] Differential Type NOT REPORTED [place] Eosinophils (Bld) [#/Vol] 0.17 10*3/uL [place] Eosinophils/100 WBC (Bld) 2 % 1 - 4 % [place] Erythrocyte distribution width (RBC) [Ratio] 15.3 % High 11.8 - 14.4 % [place] Hematocrit (Bld) [Volume fraction] 36.5 % 36.3 - 47.1 % [place] Hemoglobin (Bld) [Mass/Vol] 11.2 g/dL Low 11.9 - 15.1 g/dL [place] Immature granulocytes (Bld) [#/Vol] 1 % High 0 [place] Immature granulocytes (Bld) [#/Vol] 0.05 10*3/uL [place] Interpretation and review of laboratory results Abnormal [place] Lymphocytes (Bld) [#/Vol] 2.30 10*3/uL [place] Lymphocytes/100 WBC (Bld) 21 % Low 24 - 43 % [place] MCH (RBC) [Entitic mass] 30.3 pg 25. 2 - 33.5 pg [place] MCHC (RBC) [Mass/Vol] 30.7 g/dL 28.4 - 34.8 g/dL [place] MCV (RBC) [Entitic vol] 98.6 fL 82.6 - 102.9 fL [place] Monocytes (Bld) [#/Vol] 1.01 10*3/uL [place] Monocytes/100 WBC (Bld) 9 % 3 - 12 % [place] Platelet mean volume (Bld) [Entitic vol] 9.7 fL 8.1 - 13.5 fL [place] Platelets (Bld) [#/Vol] NOT REPORTED [place] Platelets (Bld) [#/Vol] 481 10*3/uL [place] RBC (Bld) [#/Vol] 3.70 10*6/uL Low 3.95 - 5.1 1 m/uL [place] RBC morphology finding Nom (Bld) NOT REPORTED [place] Segmented neutrophils/100 WBC (Bld) 67 % High 36 - 65 % [place] Segs Absolute 7.38 [place] WBC (Bld) [#/Vol] 10.9 10*3/uL [place] WBC (Bld) [#/Vol] 0.0 10*3/uL 0.0 per 10 0 WBC [place] WBC Morphology NOT REPORTED [place] Metabolic Panelon 05-03-2020 GFR/1.73 sq M predicted among non-blacks MDRD (S/P/Bld) [Vol rate/Area] [place] Comment on above: Stage 1: Some [...] body mass. Additional eGFR calculator available at: http://www.[employer]Asset/multiple_crcl_2012.htm CBC Auto Differentialon 03-27 Basophils (Bld) [#/Vol] 0.00 10*3/uL [place] Basophils/100 WBC (Bld) 0 % 0 - 2 % [place] Differential Type NOT REPORTED [place] Eosinophils (Bld) [#/Vol] 0.00 10*3/uL [place] Eosinophils/100 WBC (Bld) 0 % Low 1 - 4 % [place] Erythrocyte distribution width (RBC) [Ratio] 15.9 % High 11.8 - 14.4 % [place] Hematocrit (Bld) [Volume fraction] 36.3 % 36.3 - 47.1 % [place] Hemoglobin (Bld) [Mass/Vol] 11.0 g/dL Low 11.9 - 15.1 g/dL [place] Immature granulocytes (Bld) [#/Vol] 4 % High 0 [place] Immature granulocytes (Bld) [#/Vol] 0.51 10*3/uL [place] Interpretation and review of laboratory results Abnormal [place] Lymphocytes (Bld) [#/Vol] 1.40 10*3/uL [place] Lymphocytes/100 WBC (Bld) 11 % Low 24 - 43 % [place] MCH (RBC) [Entitic mass] 30.1 pg 25. 2 - 33.5 pg [place] MCHC (RBC) [Mass/Vol] 30.3 g/dL 28.4 - 34.8 g/dL [place] MCV (RBC) [Entitic vol] 99.5 fL 82.6 - 102.9 fL [place] Monocytes (Bld) [#/Vol] 0.76 10*3/uL [place] Monocytes/100 WBC (Bld) 6 % 3 - 12 % [place] Morphology [place] (Bld) [Interp] Normal [place] Platelet mean volume (Bld) [Entitic vol] 10.0 fL 8.1 - 13.5 fL [place] Platelets (Bld) [#/Vol] NOT REPORTED [place] Platelets (Bld) [#/Vol] 613 10*3/uL [place] RBC (Bld) [#/Vol] 3.65 10*6/uL Low 3.95 - 5.1 1 m/uL [place] RBC morphology finding Nom (Bld) NOT REPORTED [place] Segmented neutrophils/100 WBC (Bld) 79 % High 36 - 65 % [place] Segs Absolute 10.03 High [place] WBC (Bld) [#/Vol] 0.0 10*3/uL 0.0 per 10 0 WBC [place] WBC (Bld) [#/Vol] 12.7 10*3/uL [place] WBC Morphology NOT REPORTED [place] Comprehensive Metabolic Pane riddhi 04-10-2020 Albumin [Mass/Vol] 2.4 g/dL Low 3.5 - 5.2 g/dL [place] Albumin/Globulin [Mass ratio] 0.8 {ratio} Low [place] ALP [Catalytic activity/Vol] 136 U/L High 35 - 104 U/L [place] ALT [Catalytic activity/Vol] 29 U/L 5 - 33 U/L [place] Anion gap [Moles/Vol] 11 mmol/L 9 - 17 mmol/L [place] AST [Catalytic activity/Vol] 20 U/L <32 [place] Bilirubin Ql (U) 0.20 mg/dL Low 0.3 - 1.2 mg/dL [place] Bun/Cre Ratio 20 [place] Calcium [Mass/Vol] 8.2 mg/dL Low 8.6 - 10. 4 mg/dL [place] Chloride [Moles/Vol] 100 mmol/L 98 - 10 7 mmol/L [place] CO2 [Moles/Vol] 25 mmol/L 20 - 31 mmol/L [place] Creatinine [Mass/Vol] 1.11 mg/dL High 0.5 - 0.9 mg/dL [place] GFR 57 mL/min Low >60 [place] GFR Non- 47 mL/min Low >60 [place] Glucose [Mass/Vol] 135 mg/dL High 70 - 99 mg/dL [place] Interpretation and review of laboratory results Abnormal [place] Potassium [Moles/Vol] 3.6 mmol/L Low 3.7 - 5.3 mmol/L [place] Protein [Mass/Vol] 5.6 g/dL Low 6.4 - 8.3 g/dL [place] Sodium [Moles/Vol] 136 mmol/L 135 - 144 mmol/L [place] Urea nitrogen [Mass/Vol] 22 mg/dL 8 - 23 mg/dL [place] Metabolic Panelon 04-10-2020 GFR/1.73 sq M predicted among non-blacks MDRD (S/P/Bld) [Vol rate/Area] [place] Comment on above: Stage 1: Some [...] body mass. Additional eGFR calculator available at: http://www.[employer]Asset/multiple_crcl_2012.htm Urinalysis with Microscopico n 04-10-2020 Amorphous, UA NOT REPORTED None [place] Bacteria, UA TRACE Abnormal None [place] Bilirubin Urine Negative NEGATIVE [place] Casts UA NOT REPORTED /LPF [place] Color, UA YELLOW YELLOW [place] Crystals, UA NOT REPORTED None /HPF [place] Epithelial Cells UA 10 TO 20 [place] Glucose, Ur Negative NEGATIVE [place] Interpretation and review of laboratory results Abnormal [place] Ketones Ql (U) Negative NEGATIVE [place] Leukocyte esterase Test strip Ql (U) Negative NEGATIVE [place] Mucus, UA NOT REPORTED None [place] Nitrite, Urine Negative NEGATIVE [place] Other Observations UA NOT REPORTED NOT REQ. [place] pH, UA 7.0 [place] Protein (U) [Mass/Vol] Negative NEGATIVE [place] RBC (U) [#/Vol] 0 TO 2 [place] Renal Epithelial, UA NOT REPORTED 0 /HPF [place] Specific [place], UA 1.015 [place] Trichomonas, UA NOT REPORTED None [place] Turbidity UA CLEAR CLEAR [place] Urinalysis Comments NOT REPORTED [place] Urine Hgb Negative NEGATIVE [place] Urobilinogen, Urine Normal Normal [place] WBC, UA 0 TO 2 [place] Yeast, UA NOT REPORTED None [place] CBC auto differentialon 03-27 Basophils (Bld) [#/Vol] 0.04 10*3/uL [place] Basophils/100 WBC (Bld) 0 % 0 - 2 % [place] Differential Type NOT REPORTED [place] Eosinophils (Bld) [#/Vol] 0.24 10*3/uL [place] Eosinophils/100 WBC (Bld) 2 % 1 - 4 % [place] Erythrocyte distribution width (RBC) [Ratio] 15.6 % High 11.8 - 14.4 % [place] Hematocrit (Bld) [Volume fraction] 29.2 % Low 36.3 - 47.1 % [place] Hemoglobin (Bld) [Mass/Vol] 8.8 g/dL Low 11.9 - 15.1 g/dL [place] Immature granulocytes (Bld) [#/Vol] 0.49 10*3/uL [place] Immature granulocytes (Bld) [#/Vol] 3 % High 0 [place] Interpretation and review of laboratory results Abnormal [place] Lymphocytes (Bld) [#/Vol] 1.99 10*3/uL [place] Lymphocytes/100 WBC (Bld) 13 % Low 24 - 43 % [place] MCH (RBC) [Entitic mass] 30.1 pg 25. 2 - 33.5 pg [place] MCHC (RBC) [Mass/Vol] 30.1 g/dL 28.4 - 34.8 g/dL [place] MCV (RBC) [Entitic vol] 100.0 fL 82.6 - 102.9 fL [place] Monocytes (Bld) [#/Vol] 1.02 10*3/uL [place] Monocytes/100 WBC (Bld) 7 % 3 - 12 % [place] Platelet mean volume (Bld) [Entitic vol] 10.7 fL 8.1 - 13.5 fL [place] Platelets (Bld) [#/Vol] NOT REPORTED [place] Platelets (Bld) [#/Vol] 444 10*3/uL [place] RBC (Bld) [#/Vol] 2.92 10*6/uL Low 3.95 - 5.1 1 m/uL [place] RBC morphology finding Nom (Bld) NOT REPORTED [place] Segmented neutrophils/100 WBC (Bld) 75 % High 36 - 65 % [place] Segs Absolute 11.50 High [place] WBC (Bld) [#/Vol] 0.0 10*3/uL 0.0 per 10 0 WBC [place] WBC (Bld) [#/Vol] 15.3 10*3/uL [place] WBC Morphology NOT REPORTED [place] Comprehensive metabolic pane riddhi 04-06-2020 Albumin [Mass/Vol] 2.1 g/dL Low 3.5 - 5.2 g/dL [place] Albumin/Globulin [Mass ratio] 0.7 {ratio} Low [place] ALP [Catalytic activity/Vol] 139 U/L High 35 - 104 U/L [place] ALT [Catalytic activity/Vol] 67 U/L High 5 - 33 U/L [place] Anion gap [Moles/Vol] 11 mmol/L 9 - 17 mmol/L [place] AST [Catalytic activity/Vol] 61 U/L High <32 [place] Bilirubin Ql (U) 0.34 mg/dL 0.3 - 1.2 mg/dL [place] Bun/Cre Ratio 20 [place] Calcium [Mass/Vol] 8.2 mg/dL Low 8.6 - 10. 4 mg/dL [place] Chloride [Moles/Vol] 101 mmol/L 98 - 10 7 mmol/L [place] CO2 [Moles/Vol] 25 mmol/L 20 - 31 mmol/L [place] Creatinine [Mass/Vol] 1.12 mg/dL High 0.5 - 0.9 mg/dL [place] GFR 56 mL/min Low >60 [place] GFR Non- 47 mL/min Low >60 [place] Glucose [Mass/Vol] 149 mg/dL High 70 - 99 mg/dL [place] Interpretation and review of laboratory results Abnormal [place] Potassium [Moles/Vol] 3.5 mmol/L Low 3.7 - 5.3 mmol/L [place] Protein [Mass/Vol] 5.3 g/dL Low 6.4 - 8.3 g/dL [place] Sodium [Moles/Vol] 137 mmol/L 135 - 144 mmol/L [place] Urea nitrogen [Mass/Vol] 22 mg/dL 8 - 23 mg/dL [place] Metabolic Panelon 04-06-2020 GFR/1.73 sq M predicted among non-blacks MDRD (S/P/Bld) [Vol rate/Area] [place] Comment on above: Stage 1: Some [...] body mass. Additional eGFR calculator available at: http://www.Velocomp.BrieFix/multiple_crcl_2011.htm CBC auto differentialon 03-27 Basophils (Bld) [#/Vol] 10*3/uL [place] Basophils/100 WBC (Bld) 0 % 0 - 2 % [place] Differential Type NOT REPORTED [place] Eosinophils (Bld) [#/Vol] 0.05 10*3/uL [place] Eosinophils/100 WBC (Bld) 0 % Low 1 - 4 % [place] Erythrocyte distribution width (RBC) [Ratio] 15.3 % High 11.8 - 14.4 % [place] Hematocrit (Bld) [Volume fraction] 32.0 % Low 36.3 - 47.1 % [place] Hemoglobin (Bld) [Mass/Vol] 10.0 g/dL Low 11.9 - 15.1 g/dL [place] Immature granulocytes (Bld) [#/Vol] 2 % High 0 [place] Immature granulocytes (Bld) [#/Vol] 0.40 10*3/uL [place] Interpretation and review of laboratory results Abnormal [place] Lymphocytes (Bld) [#/Vol] 1.67 10*3/uL [place] Lymphocytes/100 WBC (Bld) 9 % Low 24 - 43 % [place] MCH (RBC) [Entitic mass] 30.8 pg 25. 2 - 33.5 pg [place] MCHC (RBC) [Mass/Vol] 31.3 g/dL 28.4 - 34.8 g/dL [place] MCV (RBC) [Entitic vol] 98.5 fL 82.6 - 102.9 fL [place] Monocytes (Bld) [#/Vol] 1.38 10*3/uL [place] Monocytes/100 WBC (Bld) 8 % 3 - 12 % [place] Platelet mean volume (Bld) [Entitic vol] 10.7 fL 8.1 - 13.5 fL [place] Platelets (Bld) [#/Vol] 497 10*3/uL [place] Platelets (Bld) [#/Vol] NOT REPORTED [place] RBC (Bld) [#/Vol] 3.25 10*6/uL Low 3.95 - 5.1 1 m/uL [place] RBC morphology finding Nom (Bld) NOT REPORTED [place] Segmented neutrophils/100 WBC (Bld) 81 % High 36 - 65 % [place] Segs Absolute 14.36 [place] WBC (Bld) [#/Vol] 17.9 10*3/uL [place] WBC (Bld) [#/Vol] 0.0 10*3/uL 0.0 per 10 0 WBC [place] WBC Morphology NOT REPORTED [place] COVID-19on 04-05-2020 SARS-CoV-2 [place] SARS-CoV-2, PCR [place] SARS-CoV-2, Rapid Not Detected Not Detected [place] Comment on above: Rapid NAAT: The [...] management decisions. Fact sheet for Healthcare Providers: https://www.fda.gov/media/949464/download Fact sheet for Patients: https://www.fda.gov/media/691316/download Methodology: Isothermal Nucleic Acid Amplification Source .NASOPHARYNGEAL SWAB [place] Comprehensive metabolic pane riddhi 04-05-2020 Albumin [Mass/Vol] 2.5 g/dL Low 3.5 - 5.2 g/dL [place] Albumin/Globulin [Mass ratio] 0.7 {ratio} [place] ALP [Catalytic activity/Vol] 137 U/L High 35 - 104 U/L [place] ALT [Catalytic activity/Vol] 76 U/L High 5 - 33 U/L [place] Anion gap [Moles/Vol] 16 mmol/L 9 - 17 mmol/L [place] AST [Catalytic activity/Vol] 73 U/L High <32 [place] Bilirubin Ql (U) 0.41 mg/dL 0.3 - 1.2 mg/dL [place] Bun/Cre Ratio 21 [place] Calcium [Mass/Vol] 8.4 mg/dL Low 8.6 - 10. 4 mg/dL [place] Chloride [Moles/Vol] 102 mmol/L 98 - 10 7 mmol/L [place] CO2 [Moles/Vol] 24 mmol/L 20 - 31 mmol/L [place] Creatinine [Mass/Vol] 1.16 mg/dL High 0.5 - 0.9 mg/dL [place] GFR 54 mL/min Low >60 [place] GFR Non- 45 mL/min Low >60 [place] Glucose [Mass/Vol] 128 mg/dL High 70 - 99 mg/dL [place] Interpretation and review of laboratory results Abnormal [place] Potassium [Moles/Vol] 3.3 mmol/L Low 3.7 - 5.3 mmol/L [place] Protein [Mass/Vol] 6.3 g/dL Low 6.4 - 8.3 g/dL [place] Sodium [Moles/Vol] 142 mmol/L 135 - 144 mmol/L [place] Urea nitrogen [Mass/Vol] 24 mg/dL High 8 - 23 mg/dL [place] Metabolic Panelon 04-05-2020 GFR/1.73 sq M predicted among non-blacks MDRD (S/P/Bld) [Vol rate/Area] [place] Comment on above: Stage 1: Some [...] body mass. Additional eGFR calculator available at: http://www.SmartAsset/multiple_crcl_2012.htm Basic Metabolic Panel w/ Ref tosha to MGon 04-03-2020 Anion gap [Moles/Vol] 18 mmol/L High 9 - 17 mmol/L [place] Bun/Cre Ratio 26 [place] Calcium [Mass/Vol] 9.0 mg/dL 8.6 - 10. 4 mg/dL [place] Chloride [Moles/Vol] 96 mmol/L Low 98 - 10 7 mmol/L [place] CO2 [Moles/Vol] 26 mmol/L 20 - 31 mmol/L [place] Creatinine [Mass/Vol] 1.17 mg/dL High 0.5 - 0.9 mg/dL [place] GFR 54 mL/min Low >60 [place] GFR Non- 44 mL/min Low >60 [place] Glucose [Mass/Vol] 157 mg/dL High 70 - 99 mg/dL [place] Interpretation and review of laboratory results Abnormal [place] Potassium [Moles/Vol] 3.5 mmol/L Low 3.7 - 5.3 mmol/L [place] Sodium [Moles/Vol] 140 mmol/L 135 - 144 mmol/L [place] Urea nitrogen [Mass/Vol] 30 mg/dL High 8 - 23 mg/dL [place] CBCon 04-03-2020 Erythrocyte distribution width (RBC) [Ratio] 14.9 % High 11.8 - 14.4 % [place] Hematocrit (Bld) [Volume fraction] 34.0 % Low 36.3 - 47.1 % [place] Hemoglobin (Bld) [Mass/Vol] 10.8 g/dL Low 11.9 - 15.1 g/dL [place] Interpretation and review of laboratory results Abnormal [place] MCH (RBC) [Entitic mass] 30.9 pg 25. 2 - 33.5 pg [place] MCHC (RBC) [Mass/Vol] 31.8 g/dL 28.4 - 34.8 g/dL [place] MCV (RBC) [Entitic vol] 97.4 fL 82.6 - 102.9 fL [place] Platelet mean volume (Bld) [Entitic vol] 10.6 fL 8.1 - 13.5 fL [place] Platelets (Bld) [#/Vol] 455 10*3/uL [place] RBC (Bld) [#/Vol] 3.49 10*6/uL Low 3.95 - 5.1 1 m/uL [place] WBC (Bld) [#/Vol] 17.6 10*3/uL [place] WBC (Bld) [#/Vol] 0.0 10*3/uL 0.0 per 10 0 WBC [place] EKG 12 Leadon 04-03-2020 Atrial Rate 78 BPM [place] P Pollok 90 degrees [place] P-R Interval 174 ms [place] Q-T Interval 426 ms [place] QRS Duration 114 ms [place] QTc Calculation (Bazett) 485 ms [place] R Pollok -27 degrees [place] T Pollok 61 degrees [place] Urea nitrogen [Mass/Vol] Sinus rhythm wi th Premature atrial complexes Incomplete left bundle branch block Left ventricular hypertrophy with repolarization abnormality Abnormal ECG When compared with ECG of 02-APR-2020 14:43, Premature atrial complexes are now Present Minimal criteria for Septal infarct are no longer Present Confirmed by Sadie GRACE MD ([id number]) on 04/03/2020 7:17:15 AM [place] Ventricular Rate 78 BPM [place], Mhpn Incoming E kg Results From [facility] [place] - 04/03/2020 7:17 AM EDT Sinus rhythm with Premature atrial complexes Incomplete left bundle branch block Left ventricular hypertrophy with repolarization abnormality Abnormal ECG When compared with ECG of 02-APR-2020 14:43, Premature atrial complexes are now Present Minimal criteria for Septal infarct are no longer Present Confirmed by Sadie GRACE MD ([id number]) on 04/03/2020 7:17:15 AM [place] Lactic acid, plasmaon 2019 Lactate [Moles/Vol] 1.9 mmol/L 0.5 - 2. 2 mmol/L [place] Lactic Acid, Whole Blood NOT REPORTED 0.7 - 2.1 mmol/L [place] Magnesiumon 04-03-2020 Magnesium [Mass/Vol] 1.9 mg/dL 1.6 - 2 .6 mg/dL [place] Metabolic Panelon 04-03-2020 GFR/1.73 sq M predicted among non-blacks MDRD (S/P/Bld) [Vol rate/Area] [place] Comment on above: Stage 1: Some [...] body mass. Additional eGFR calculator available at: http://www.SmartAsset/multiple_crcl_2012.htm Basic Metabolic Panelon - Anion gap [Moles/Vol] 16 mmol/L 9 - 17 mmol/L [place] Bun/Cre Ratio 26 [place] Calcium [Mass/Vol] 8.9 mg/dL 8.6 - 10. 4 mg/dL [place] Chloride [Moles/Vol] 92 mmol/L Low 98 - 10 7 mmol/L [place] CO2 [Moles/Vol] 29 mmol/L 20 - 31 mmol/L [place] Creatinine [Mass/Vol] 1.41 mg/dL High 0.5 - 0.9 mg/dL [place] GFR 43 mL/min Low >60 [place] GFR Non- 36 mL/min Low >60 [place] Glucose [Mass/Vol] 200 mg/dL High 70 - 99 mg/dL [place] Interpretation and review of laboratory results Abnormal [place] Potassium [Moles/Vol] 2.9 mmol/L Critically low 3.7 - 5.3 mmol/L [place] Sodium [Moles/Vol] 137 mmol/L 135 - 144 mmol/L [place] Urea nitrogen [Mass/Vol] 37 mg/dL High 8 - 23 mg/dL [place] Basic Metabolic Panel w/ Ref tosha to MGon 04-02-2020 Anion gap [Moles/Vol] 15 mmol/L 9 - 17 mmol/L [place] Bun/Cre Ratio 26 [place] Calcium [Mass/Vol] 8.6 mg/dL 8.6 - 10. 4 mg/dL [place] Chloride [Moles/Vol] 96 mmol/L Low 98 - 10 7 mmol/L [place] CO2 [Moles/Vol] 28 mmol/L 20 - 31 mmol/L [place] Creatinine [Mass/Vol] 1.33 mg/dL High 0.5 - 0.9 mg/dL [place] GFR 46 mL/min Low >60 [place] GFR Non- 38 mL/min Low >60 [place] Glucose [Mass/Vol] 149 mg/dL High 70 - 99 mg/dL [place] Interpretation and review of laboratory results Abnormal [place] Potassium [Moles/Vol] 3.4 mmol/L Low 3.7 - 5.3 mmol/L [place] Sodium [Moles/Vol] 139 mmol/L 135 - 144 mmol/L [place] Urea nitrogen [Mass/Vol] 35 mg/dL High 8 - 23 mg/dL [place] CBC Auto Differentialon Basophils (Bld) [#/Vol] 10*3/uL [place] Basophils/100 WBC (Bld) 0 % 0 - 2 % [place] Differential Type NOT REPORTED [place] Eosinophils (Bld) [#/Vol] 10*3/uL [place] Eosinophils/100 WBC (Bld) 0 % Low 1 - 4 % [place] Erythrocyte distribution width (RBC) [Ratio] 14.7 % High 11.8 - 14.4 % [place] Hematocrit (Bld) [Volume fraction] 32.6 % Low 36.3 - 47.1 % [place] Hemoglobin (Bld) [Mass/Vol] 10.5 g/dL Low 11.9 - 15.1 g/dL [place] Immature granulocytes (Bld) [#/Vol] 1 % High 0 [place] Immature granulocytes (Bld) [#/Vol] 0.15 10*3/uL [place] Interpretation and review of laboratory results Abnormal [place] Lymphocytes (Bld) [#/Vol] 1.25 10*3/uL [place] Lymphocytes/100 WBC (Bld) 7 % Low 24 - 43 % [place] MCH (RBC) [Entitic mass] 30.7 pg 25. 2 - 33.5 pg [place] MCHC (RBC) [Mass/Vol] 32.2 g/dL 28.4 - 34.8 g/dL [place] MCV (RBC) [Entitic vol] 95.3 fL 82.6 - 102.9 fL [place] Monocytes (Bld) [#/Vol] 1.50 10*3/uL [place] Monocytes/100 WBC (Bld) 9 % 3 - 12 % [place] Platelet mean volume (Bld) [Entitic vol] 10.8 fL 8.1 - 13.5 fL [place] Platelets (Bld) [#/Vol] NOT REPORTED [place] Platelets (Bld) [#/Vol] 401 10*3/uL [place] RBC (Bld) [#/Vol] 3.42 10*6/uL Low 3.95 - 5.1 1 m/uL [place] RBC morphology finding Nom (Bld) NOT REPORTED [place] Segmented neutrophils/100 WBC (Bld) 83 % High 36 - 65 % [place] Segs Absolute 14.35 [place] WBC (Bld) [#/Vol] 17.3 10*3/uL [place] WBC (Bld) [#/Vol] 0.0 10*3/uL 0.0 per 10 0 WBC [place] WBC Morphology NOT REPORTED [place] EKG 12 Leadon 04-02-2020 Atrial Rate 73 BPM [place] P Pollok 90 degrees [place] P-R Interval 192 ms [place] Q-T Interval 430 ms [place] QRS Duration 108 ms [place] QTc Calculation (Bazett) 473 ms [place] R Pollok -33 degrees [place] T Pollok 50 degrees [place] Ventricular Rate 73 BPM [place] Normal sinus rhythm Left axis deviation Pulmonary disease pattern Left ventricular hypertrophy with repolarization abnormality Cannot rule out Septal infarct (cited on or before 30-JUN-2001) Abnormal ECG When compared with ECG of 11-NOV-2011 11:12, QRS duration has increased Questionable change in initial forces of Anterior leads Confirmed by Sadie GRACE MD ([id number]) on 04/02/2020 4:19:24 PM [place], Mhpn Incoming E kg Results From [place] - 04/02/2020 4:19 PM EDT Normal sinus rhythm Left axis deviation Pulmonary disease pattern Left ventricular hypertrophy with repolarization abnormality Cannot rule out Septal infarct (cited on or before 30-JUN-2001) Abnormal ECG When compared with ECG of 11-NOV-2011 11:12, QRS duration has increased Questionable change in initial forces of Anterior leads Confirmed by Sadie GRACE MD ([id number]) on 04/02/2020 4:19:24 PM [place] Magnesiumon 04-02-2020 Magnesium [Mass/Vol] 2.0 mg/dL 1.6 - 2 .6 mg/dL [place] Metabolic Panelon 04-02-2020 GFR/1.73 sq M predicted among non-blacks MDRD (S/P/Bld) [Vol rate/Area] [place] Comment on above: Average GFR for 70 o r more years old: 75 mL/min/1.73sq m Chronic Kidney Disease: <60 mL/min/1.73sq m Kidney failure: <15 mL/min/1.73sq m eGFR calculated using average adult body mass. Additional eGFR calculator available at: http://www.SmartAsset/multiple_crcl_2012.htm Stage 1: Some kidney damage normal GFR Stage 2: Mild kidney damage GFR 60-89 Stage 3: Moderate kidney damage GFR 30-59 Stage 4: Severe kidney damage GFR 15-29 Stage 5: Severe kidney damage GFR <15 ESRD - chronic treatment by dialysis or transplant GFR/1.73 sq M predicted among non-blacks MDRD (S/P/Bld) [Vol rate/Area] [place] Comment on above: Average GFR for 70 o r more years old: 75 mL/min/1.73sq m Chronic Kidney Disease: <60 mL/min/1.73sq m Kidney failure: <15 mL/min/1.73sq m eGFR calculated using average adult body mass. Additional eGFR calculator available at: http://www.SmartAsset/SixDoors_crcl_2012.htm Stage 1: Some kidney damage normal GFR Stage 2: Mild kidney damage GFR 60-89 Stage 3: Moderate kidney damage GFR 30-59 Stage 4: Severe kidney damage GFR 15-29 Stage 5: Severe kidney damage GFR <15 ESRD - chronic treatment by dialysis or transplant Troponinon 04-02-2020 Interpretation and review of laboratory results Abnormal [place] Troponin I.cardiac [Mass/Vol] NOT REPORTED [place] Troponin T.cardiac [Mass/Vol] NOT REPORTED <0.03 ng/mL [place] Troponin, High Sensitivity 44 ng/L High 0 - 14 ng/L [place] Comment on above: High Sensitivity Troponin values cannot be compared with other Troponin methodologies. Patients with high levels of Biotin oral intake (i.e >5mg/day) may have falsely decreased Troponin levels. Samples collected within 8 hours of biotin intake may require additional information for diagnosis. Interpretation and review of laboratory results Abnormal [place] Troponin I.cardiac [Mass/Vol] NOT REPORTED [place] Troponin T.cardiac [Mass/Vol] NOT REPORTED <0.03 ng/mL [place] Troponin, High Sensitivity 47 ng/L High 0 - 14 ng/L [place] Comment on above: High Sensitivity Troponin values cannot be compared with other Troponin methodologies. Patients with high levels of Biotin oral intake (i.e >5mg/day) may have falsely decreased Troponin levels. Samples collected within 8 hours of biotin intake may require additional information for diagnosis. Urinalysis with [facility] n 04-02-2020 Amorphous, UA NOT REPORTED None [place] Bacteria, UA 4+ Abnormal None [place] Bilirubin Urine Negative NEGATIVE [place] Casts UA NOT REPORTED /LPF [place] Color, UA YELLOW YELLOW [place] Crystals, UA NOT REPORTED None /HPF [place] Epithelial Cells UA 0 TO 2 [place] Glucose, Ur Negative NEGATIVE [place] Interpretation and review of laboratory results Abnormal [place] Ketones Ql (U) Negative NEGATIVE [place] Leukocyte esterase Test strip Ql (U) Negative NEGATIVE [place] Mucus, UA NOT REPORTED None [place] Nitrite, Urine Positive Abnormal NEGATIVE [place] Other Observations UA NOT REPORTED NOT REQ. [place] pH, UA 6.0 [place] Protein (U) [Mass/Vol] 1+ Abnormal NEGATIVE [place] RBC (U) [#/Vol] 0 TO 2 [place] Renal Epithelial, UA NOT REPORTED 0 /HPF [place] Specific [place], UA 1.025 High [place] Trichomonas, UA NOT REPORTED None [place] Turbidity UA SLIGHTLY CLOUDY Abnormal CLEAR [place] Urinalysis Comments NOT REPORTED [place] Urine Hgb 1+ Abnormal NEGATIVE [place] Urobilinogen, Urine Normal Normal [place] WBC, UA 2 TO 5 [place] Yeast, UA NOT REPORTED None [place] - [place] XR CHEST 1 VWon 04-02-2020 No acute cardiopulmonary disease. [place], [place]pn Incoming Radiant Results From [facility] - 04/02/2020 8:01 PM EDT EXAMINATION: ONE [...] osseous abnormality. IMPRESSION: No acute cardiopulmonary disease. [place] EXAMINATION: ONE XRA Y VIEW OF [...] edema. No pneumothorax. No acute osseous abnormality. [place] CBC Auto Differentialon 02-26 Basophils (Bld) [#/Vol] 10*3/uL [place] Basophils/100 WBC (Bld) 0 % 0 - 2 % [place] Differential Type NOT REPORTED [place] Eosinophils (Bld) [#/Vol] 0.07 10*3/uL [place] Eosinophils/100 WBC (Bld) 1 % 1 - 4 % [place] Erythrocyte distribution width (RBC) [Ratio] 14.1 % 11.8 - 14.4 % [place] Hematocrit (Bld) [Volume fraction] 35.7 % Low 36.3 - 47.1 % [place] Hemoglobin (Bld) [Mass/Vol] 11.1 g/dL Low 11.9 - 15.1 g/dL [place] Immature granulocytes (Bld) [#/Vol] 0.04 10*3/uL [place] Immature granulocytes (Bld) [#/Vol] 0 % 0 [place] Interpretation and review of laboratory results Abnormal [place] Lymphocytes (Bld) [#/Vol] 1.62 10*3/uL [place] Lymphocytes/100 WBC (Bld) 14 % Low 24 - 43 % [place] MCH (RBC) [Entitic mass] 31.5 pg 25. 2 - 33.5 pg [place] MCHC (RBC) [Mass/Vol] 31.1 g/dL 28.4 - 34.8 g/dL [place] MCV (RBC) [Entitic vol] 101.4 fL 82.6 - 102.9 fL [place] Monocytes (Bld) [#/Vol] 1.43 10*3/uL [place] Monocytes/100 WBC (Bld) 12 % 3 - 12 % [place] Platelet mean volume (Bld) [Entitic vol] 10.3 fL 8.1 - 13.5 fL [place] Platelets (Bld) [#/Vol] 245 10*3/uL [place] Platelets (Bld) [#/Vol] NOT REPORTED [place] RBC (Bld) [#/Vol] 3.52 10*6/uL Low 3.95 - 5.1 1 m/uL [place] RBC morphology finding Nom (Bld) NOT REPORTED [place] Segmented neutrophils/100 WBC (Bld) 73 % High 36 - 65 % [place] Segs Absolute 8.49 [place] WBC (Bld) [#/Vol] 0.0 10*3/uL 0.0 per 10 0 WBC [place] WBC (Bld) [#/Vol] 11.7 10*3/uL [place] WBC Morphology NOT REPORTED [place] Comprehensive Metabolic Pane riddhi 03-25-2020 Albumin [Mass/Vol] 3.3 g/dL Low 3.5 - 5.2 g/dL [place] Albumin/Globulin [Mass ratio] 1.1 {ratio} [place] ALP [Catalytic activity/Vol] 118 U/L High 35 - 104 U/L [place] ALT [Catalytic activity/Vol] 14 U/L 5 - 33 U/L [place] Anion gap [Moles/Vol] 14 mmol/L 9 - 17 mmol/L [place] AST [Catalytic activity/Vol] 15 U/L <32 [place] Bilirubin Ql (U) 0.39 mg/dL 0.3 - 1.2 mg/dL [place] Bun/Cre Ratio 17 [place] Calcium [Mass/Vol] 9.1 mg/dL 8.6 - 10. 4 mg/dL [place] Chloride [Moles/Vol] 101 mmol/L 98 - 10 7 mmol/L [place] CO2 [Moles/Vol] 27 mmol/L 20 - 31 mmol/L [place] Creatinine [Mass/Vol] 1.32 mg/dL High 0.5 - 0.9 mg/dL [place] GFR 47 mL/min Low >60 [place] GFR Non- 39 mL/min Low >60 [place] Glucose [Mass/Vol] 140 mg/dL High 70 - 99 mg/dL [place] Interpretation and review of laboratory results Abnormal [place] Potassium [Moles/Vol] 3.7 mmol/L 3.7 - 5.3 mmol/L [place] Protein [Mass/Vol] 6.2 g/dL Low 6.4 - 8.3 g/dL [place] Sodium [Moles/Vol] 142 mmol/L 135 - 144 mmol/L [place] Urea nitrogen [Mass/Vol] 22 mg/dL 8 - 23 mg/dL [place] Metabolic Panelon 03-25-2020 GFR/1.73 sq M predicted among non-blacks MDRD (S/P/Bld) [Vol rate/Area] [place] Comment on above: Average GFR for 70 o r more years old: 75 mL/min/1.73sq m Chronic Kidney Disease: <60 mL/min/1.73sq m Kidney failure: <15 mL/min/1.73sq m eGFR calculated using average adult body mass. Additional eGFR calculator available at: http://www.SmartAsset/multiple_crcl_2012.htm Stage 1: Some kidney damage normal GFR Stage 2: Mild kidney damage GFR 60-89 Stage 3: Moderate kidney damage GFR 30-59 Stage 4: Severe kidney damage GFR 15-29 Stage 5: Severe kidney damage GFR <15 ESRD - chronic treatment by dialysis or transplant APTTon 03-23-2020 aPTT Coag (Bld) [Time] 33.4 s Me [place] Comment on above: IV Heparin Therapy Range: 62.0-94.0 Basic Metabolic Panel w/ Ref tosha to MGon 03-23-2020 Anion gap [Moles/Vol] 16 mmol/L 9 - 17 mmol/L [place] Bun/Cre Ratio 17 [place] Calcium [Mass/Vol] 9.2 mg/dL 8.6 - 10. 4 mg/dL [place] Chloride [Moles/Vol] 99 mmol/L 98 - 10 7 mmol/L [place] CO2 [Moles/Vol] 25 mmol/L 20 - 31 mmol/L [place] Creatinine [Mass/Vol] 1.43 mg/dL High 0.5 - 0.9 mg/dL [place] GFR 43 mL/min Low >60 [place] GFR Non- 35 mL/min Low >60 [place] Glucose [Mass/Vol] 112 mg/dL High 70 - 99 mg/dL [place] Interpretation and review of laboratory results Abnormal [place] Potassium [Moles/Vol] 4.1 mmol/L 3.7 - 5.3 mmol/L [place] Sodium [Moles/Vol] 140 mmol/L 135 - 144 mmol/L [place] Urea nitrogen [Mass/Vol] 25 mg/dL High 8 - 23 mg/dL [place] CBC Auto Differentialon 02-26 Basophils (Bld) [#/Vol] 10*3/uL [place] Basophils/100 WBC (Bld) 0 % 0 - 2 % [place] Differential Type NOT REPORTED [place] Eosinophils (Bld) [#/Vol] 0.12 10*3/uL [place] Eosinophils/100 WBC (Bld) 1 % 1 - 4 % [place] Erythrocyte distribution width (RBC) [Ratio] 14.5 % High 11.8 - 14.4 % [place] Hematocrit (Bld) [Volume fraction] 38.0 % 36.3 - 47.1 % [place] Hemoglobin (Bld) [Mass/Vol] 11.4 g/dL Low 11.9 - 15.1 g/dL [place] Immature granulocytes (Bld) [#/Vol] 0 % 0 [place] Immature granulocytes (Bld) [#/Vol] 0.03 10*3/uL [place] Interpretation and review of laboratory results Abnormal [place] Lymphocytes (Bld) [#/Vol] 1.80 10*3/uL [place] Lymphocytes/100 WBC (Bld) 17 % Low 24 - 43 % [place] MCH (RBC) [Entitic mass] 31.1 pg 25. 2 - 33.5 pg [place] MCHC (RBC) [Mass/Vol] 30.0 g/dL 28.4 - 34.8 g/dL [place] MCV (RBC) [Entitic vol] 103.8 fL High 82.6 - 102.9 fL [place] Monocytes (Bld) [#/Vol] 1.42 10*3/uL [place] Monocytes/100 WBC (Bld) 13 % High 3 - 12 % [place] Platelet mean volume (Bld) [Entitic vol] 10.2 fL 8.1 - 13.5 fL [place] Platelets (Bld) [#/Vol] NOT REPORTED [place] Platelets (Bld) [#/Vol] 245 10*3/uL [place] RBC (Bld) [#/Vol] 3.66 10*6/uL Low 3.95 - 5.1 1 m/uL [place] RBC morphology finding Nom (Bld) NOT REPORTED [place] Segmented neutrophils/100 WBC (Bld) 69 % High 36 - 65 % [place] Segs Absolute 7.34 [place] WBC (Bld) [#/Vol] 10.7 10*3/uL [place] WBC (Bld) [#/Vol] 0.0 10*3/uL 0.0 per 10 0 WBC [place] WBC Morphology NOT REPORTED [place] COVID-19, PCRon 03-23-2020 SARS-CoV-2 [place] SARS-CoV-2, PCR [place] SARS-CoV-2, Rapid Not Detected Not Detected [place] Comment on above: Rapid NAAT: The [...] management decisions. Fact sheet for Healthcare Providers: https://www.fda.gov/media/919300/download Fact sheet for Patients: https://www.fda.gov/media/187447/download Methodology: Isothermal Nucleic Acid Amplification Source .NASOPHARYNGEAL SWAB [place] Metabolic Panelon 03-23-2020 GFR/1.73 sq M predicted among non-blacks MDRD (S/P/Bld) [Vol rate/Area] [place] Comment on above: Average GFR for 70 o r more years old: 75 mL/min/1.73sq m Chronic Kidney Disease: <60 mL/min/1.73sq m Kidney failure: <15 mL/min/1.73sq m eGFR calculated using average adult body mass. Additional eGFR calculator available at: http://www.Velocomp.BrieFix/multiple_crcl_2012.htm Stage 1: Some kidney damage normal GFR Stage 2: Mild kidney damage GFR 60-89 Stage 3: Moderate kidney damage GFR 30-59 Stage 4: Severe kidney damage GFR 15-29 Stage 5: Severe kidney damage GFR <15 ESRD - chronic treatment by dialysis or transplant Protime-INRon 03-23-2020 INR Coag (PPP) [Relative time] 1.2 {INR} [place] Comment on above: Non-therapeutic Range: INR = 0.9-1.2 Therapeutic Range: Moderate Anticoagulant Intensity: INR = 2.0-3.0 High Anticoagulant Intensity: INR = 2.5-3.5 Interpretation and review of laboratory results Abnormal [place], [place] PT Coag (PPP) [Time] 14.9 s High [place], [place] XR HIP 2-3 VW W PELVIS LEFTo n 03-23-2020 Erythrocyte distribution width (RBC) [Ratio] Hardware fixation of the proximal left femoral fracture without evidence for complication. Degenerative change of the SI joints and hip joints. [place], [place], [facility] Incoming Radiant Results From [facility] - 03/23/2020 3:40 PM EDT EXAMINATION: ONE [...] of the SI joints and hip joints. [place], [place] EXAMINATION: ONE XRA Y VIEW OF [...] joints. The surrounding soft tissues are unremarkable. [place] CBC Auto Differentialon 02-25 Basophils (Bld) [#/Vol] 10*3/uL [place] Basophils/100 WBC (Bld) 0 % 0 - 2 % [place] Differential Type NOT REPORTED [place] Eosinophils (Bld) [#/Vol] 0.25 10*3/uL [place] Eosinophils/100 WBC (Bld) 5 % High 1 - 4 % [place] Erythrocyte distribution width (RBC) [Ratio] 16.0 % High 11.8 - 14.4 % [place] Hematocrit (Bld) [Volume fraction] 34.2 % Low 36.3 - 47.1 % [place] Hemoglobin (Bld) [Mass/Vol] 10.0 g/dL Low 11.9 - 15.1 g/dL [place] Immature granulocytes (Bld) [#/Vol] 0.03 10*3/uL [place] Immature granulocytes (Bld) [#/Vol] 1 % High 0 [place] Interpretation and review of laboratory results Abnormal [place] Lymphocytes (Bld) [#/Vol] 1.50 10*3/uL [place] Lymphocytes/100 WBC (Bld) 30 % 24 - 43 % [place] MCH (RBC) [Entitic mass] 31.2 pg 25. 2 - 33.5 pg [place] MCHC (RBC) [Mass/Vol] 29.2 g/dL 28.4 - 34.8 g/dL [place] MCV (RBC) [Entitic vol] 106.5 fL High 82.6 - 102.9 fL [place] Monocytes (Bld) [#/Vol] 0.70 10*3/uL [place] Monocytes/100 WBC (Bld) 14 % High 3 - 12 % [place] Platelet mean volume (Bld) [Entitic vol] 10.2 fL 8.1 - 13.5 fL [place] Platelets (Bld) [#/Vol] NOT REPORTED [place] Platelets (Bld) [#/Vol] 311 10*3/uL [place] RBC (Bld) [#/Vol] 3.21 10*6/uL Low 3.95 - 5.1 1 m/uL [place] RBC morphology finding Nom (Bld) NOT REPORTED [place] Segmented neutrophils/100 WBC (Bld) 50 % 36 - 65 % [place] Segs Absolute 2.44 [place] WBC (Bld) [#/Vol] 0.0 10*3/uL 0.0 per 10 0 WBC [place] WBC (Bld) [#/Vol] 4.9 10*3/uL [place] WBC Morphology NOT REPORTED [place] Comprehensive Metabolic Pane riddhi 03-12-2020 Albumin [Mass/Vol] 3.3 g/dL Low 3.5 - 5.2 g/dL [place] Albumin/Globulin [Mass ratio] 1.6 {ratio} [place] ALP [Catalytic activity/Vol] 124 U/L High 35 - 104 U/L [place] ALT [Catalytic activity/Vol] 18 U/L 5 - 33 U/L [place] Anion gap [Moles/Vol] 14 mmol/L 9 - 17 mmol/L [place] AST [Catalytic activity/Vol] 20 U/L <32 [place] Bilirubin Ql (U) 0.19 mg/dL Low 0.3 - 1.2 mg/dL [place] Bun/Cre Ratio 20 [place] Calcium [Mass/Vol] 8.6 mg/dL 8.6 - 10. 4 mg/dL [place] Chloride [Moles/Vol] 106 mmol/L 98 - 10 7 mmol/L [place] CO2 [Moles/Vol] 24 mmol/L 20 - 31 mmol/L [place] Creatinine [Mass/Vol] 1.5 mg/dL High 0.5 - 0.9 mg/dL [place] GFR 40 mL/min Low >60 [place] GFR Non- 33 mL/min Low >60 [place] Glucose [Mass/Vol] 78 mg/dL 70 - 99 mg/dL [place] Interpretation and review of laboratory results Abnormal [place] Potassium [Moles/Vol] 4.3 mmol/L 3.7 - 5.3 mmol/L [place] Protein [Mass/Vol] 5.4 g/dL Low 6.4 - 8.3 g/dL [place] Sodium [Moles/Vol] 144 mmol/L 135 - 144 mmol/L [place] Urea nitrogen [Mass/Vol] 30 mg/dL High 8 - 23 mg/dL [place] Metabolic Panelon 03-12-2020 GFR/1.73 sq M predicted among non-blacks MDRD (S/P/Bld) [Vol rate/Area] [place] Comment on above: Stage 1: Some [...] body mass. Additional eGFR calculator available at: http://www.Velocomp.BrieFix/multiple_crcl_2012.htm CBC Auto Differentialon Basophils (Bld) [#/Vol] 10*3/uL [place] Basophils/100 WBC (Bld) 0 % 0 - 2 % [place] Differential Type NOT REPORTED [place] Eosinophils (Bld) [#/Vol] 0.25 10*3/uL [place] Eosinophils/100 WBC (Bld) 4 % 1 - 4 % [place] Erythrocyte distribution width (RBC) [Ratio] 17.5 % High 11.8 - 14.4 % [place] Hematocrit (Bld) [Volume fraction] 33.4 % Low 36.3 - 47.1 % [place] Hemoglobin (Bld) [Mass/Vol] 10.0 g/dL Low 11.9 - 15.1 g/dL [place] Immature granulocytes (Bld) [#/Vol] 0.03 10*3/uL [place] Immature granulocytes (Bld) [#/Vol] 1 % High 0 [place] Interpretation and review of laboratory results Abnormal [place] Lymphocytes (Bld) [#/Vol] 1.40 10*3/uL [place] Lymphocytes/100 WBC (Bld) 23 % Low 24 - 43 % [place] MCH (RBC) [Entitic mass] 31.1 pg 25. 2 - 33.5 pg [place] MCHC (RBC) [Mass/Vol] 29.9 g/dL 28.4 - 34.8 g/dL [place] MCV (RBC) [Entitic vol] 103.7 fL High 82.6 - 102.9 fL [place] Monocytes (Bld) [#/Vol] 0.58 10*3/uL [place] Monocytes/100 WBC (Bld) 9 % 3 - 12 % [place] Platelet mean volume (Bld) [Entitic vol] 9.6 fL 8.1 - 13.5 fL [place] Platelets (Bld) [#/Vol] NOT REPORTED [place] Platelets (Bld) [#/Vol] 403 10*3/uL [place] RBC (Bld) [#/Vol] 3.22 10*6/uL Low 3.95 - 5.1 1 m/uL [place] RBC morphology finding Nom (Bld) NOT REPORTED [place] Segmented neutrophils/100 WBC (Bld) 63 % 36 - 65 % [place] Segs Absolute 3.89 [place] WBC (Bld) [#/Vol] 0.0 10*3/uL 0.0 per 10 0 WBC [place] WBC (Bld) [#/Vol] 6.2 10*3/uL [place] WBC Morphology NOT REPORTED [place] Comprehensive Metabolic Pane riddhi 02-27-2020 Albumin [Mass/Vol] 3.3 g/dL Low 3.5 - 5.2 g/dL [place] Albumin/Globulin [Mass ratio] 1.3 {ratio} [place] ALP [Catalytic activity/Vol] 145 U/L High 35 - 104 U/L [place] ALT [Catalytic activity/Vol] 40 U/L High 5 - 33 U/L [place] Anion gap [Moles/Vol] 11 mmol/L 9 - 17 mmol/L [place] AST [Catalytic activity/Vol] 34 U/L High <32 [place] Bilirubin Ql (U) 0.39 mg/dL 0.3 - 1.2 mg/dL [place] Bun/Cre Ratio 21 [place] Calcium [Mass/Vol] 8.8 mg/dL 8.6 - 10. 4 mg/dL [place] Chloride [Moles/Vol] 107 mmol/L 98 - 10 7 mmol/L [place] CO2 [Moles/Vol] 24 mmol/L 20 - 31 mmol/L [place] Creatinine [Mass/Vol] 1.32 mg/dL High 0.5 - 0.9 mg/dL [place] GFR 47 mL/min Low >60 [place] GFR Non- 39 mL/min Low >60 [place] Glucose [Mass/Vol] 103 mg/dL High 70 - 99 mg/dL [place] Interpretation and review of laboratory results Abnormal [place] Potassium [Moles/Vol] 3.8 mmol/L 3.7 - 5.3 mmol/L [place] Protein [Mass/Vol] 5.9 g/dL Low 6.4 - 8.3 g/dL [place] Sodium [Moles/Vol] 142 mmol/L 135 - 144 mmol/L [place] Urea nitrogen [Mass/Vol] 28 mg/dL High 8 - 23 mg/dL [place] Metabolic Panelon 02-27-2020 GFR/1.73 sq M predicted among non-blacks MDRD (S/P/Bld) [Vol rate/Area] [place] Comment on above: Stage 1: Some [...] body mass. Additional eGFR calculator available at: http://www.SmartAsset/multiple_crcl_2012.htm CBC Auto Differentialon 01-26 Basophils (Bld) [#/Vol] 10*3/uL [place] Basophils/100 WBC (Bld) 0 % 0 - 2 % [place] Differential Type NOT REPORTED [place] Eosinophils (Bld) [#/Vol] 0.33 10*3/uL [place] Eosinophils/100 WBC (Bld) 4 % 1 - 4 % [place] Erythrocyte distribution width (RBC) [Ratio] 16.7 % High 11.8 - 14.4 % [place] Hematocrit (Bld) [Volume fraction] 31.9 % Low 36.3 - 47.1 % [place] Hemoglobin (Bld) [Mass/Vol] 9.7 g/dL Low 11.9 - 15.1 g/dL [place] Immature granulocytes (Bld) [#/Vol] 0.20 10*3/uL [place] Immature granulocytes (Bld) [#/Vol] 2 % High 0 [place] Interpretation and review of laboratory results Abnormal [place] Lymphocytes (Bld) [#/Vol] 2.08 10*3/uL [place] Lymphocytes/100 WBC (Bld) 23 % Low 24 - 43 % [place] MCH (RBC) [Entitic mass] 30.8 pg 25. 2 - 33.5 pg [place] MCHC (RBC) [Mass/Vol] 30.4 g/dL 28.4 - 34.8 g/dL [place] MCV (RBC) [Entitic vol] 101.3 fL 82.6 - 102.9 fL [place] Monocytes (Bld) [#/Vol] 1.09 10*3/uL [place] Monocytes/100 WBC (Bld) 12 % 3 - 12 % [place] Platelet mean volume (Bld) [Entitic vol] 9.8 fL 8.1 - 13.5 fL [place] Platelets (Bld) [#/Vol] NOT REPORTED [place] Platelets (Bld) [#/Vol] 468 10*3/uL [place] RBC (Bld) [#/Vol] 3.15 10*6/uL Low 3.95 - 5.1 1 m/uL [place] RBC morphology finding Nom (Bld) NOT REPORTED [place] Segmented neutrophils/100 WBC (Bld) 59 % 36 - 65 % [place] Segs Absolute 5.43 [place] WBC (Bld) [#/Vol] 0.0 10*3/uL 0.0 per 10 0 WBC [place] WBC (Bld) [#/Vol] 9.2 10*3/uL [place] WBC Morphology NOT REPORTED [place] Comprehensive Metabolic Pane riddhi 02-20-2020 Albumin [Mass/Vol] 3.3 g/dL Low 3.5 - 5.2 g/dL [place] Albumin/Globulin [Mass ratio] 1.2 {ratio} [place] ALP [Catalytic activity/Vol] 158 U/L High 35 - 104 U/L [place] ALT [Catalytic activity/Vol] 101 U/L High 5 - 33 U/L [place] Anion gap [Moles/Vol] 15 mmol/L 9 - 17 mmol/L [place] AST [Catalytic activity/Vol] 100 U/L High <32 [place] Bilirubin Ql (U) 0.43 mg/dL 0.3 - 1.2 mg/dL [place] Bun/Cre Ratio 23 [place] Calcium [Mass/Vol] 8.6 mg/dL 8.6 - 10. 4 mg/dL [place] Chloride [Moles/Vol] 102 mmol/L 98 - 10 7 mmol/L [place] CO2 [Moles/Vol] 22 mmol/L 20 - 31 mmol/L [place] Creatinine [Mass/Vol] 1.46 mg/dL High 0.5 - 0.9 mg/dL [place] GFR 42 mL/min Low >60 [place] GFR Non- 34 mL/min Low >60 [place] Glucose [Mass/Vol] 98 mg/dL 70 - 99 mg/dL [place] Interpretation and review of laboratory results Abnormal [place] Potassium [Moles/Vol] 3.6 mmol/L Low 3.7 - 5.3 mmol/L [place] Protein [Mass/Vol] 6.0 g/dL Low 6.4 - 8.3 g/dL [place] Sodium [Moles/Vol] 139 mmol/L 135 - 144 mmol/L [place] Urea nitrogen [Mass/Vol] 33 mg/dL High 8 - 23 mg/dL [place] Metabolic Panelon 02-20-2020 GFR/1.73 sq M predicted among non-blacks MDRD (S/P/Bld) [Vol rate/Area] [place] Comment on above: Stage 1: Some [...] body mass. Additional eGFR calculator available at: http://www.SmartAsset/multiple_crcl_2012.htm C Bldon 02-17-2020 C Bld -- - Final No growth at 5 days. Normal [facility] Comment on above: Performed By: #### E GFR #### [place] [address] C Bld Blood cultures x 2 - Final No growth at 5 days. Normal [facility] Comment on above: Performed By: #### F OL #### [address] [address] .eGFRon 02-15-2020 eGFR AA 40 mL/min/1.73m? Low >=[address] [facility] Comment on above: Result Comment: Resu lt = 0-14.9 mL/min/1.73 m2 Kidney failure or Dialysis Result = 15-29 mL/min/1.73 m2 Severe decrease in GFR Result = 30-59 mL/min/1.73 m2 Moderate decrease in GFR Result >= 60 mL/min/1.73 m2 Normal or increased GFR Performed By: #### T IBC #### [address] [address] eGFR Non-AA 33 mL/min/1.73m? Low >=60 [facility] Comment on above: Result [...] dosing. Performed By: #### T IBC #### [address] [address] CBCon 02-15-2020 Erythrocyte distribution width (RBC) [Ratio] 14.7 % Normal 11.6-14.8 [facility] Comment on above: Performed By: #### F OL #### [address] [address] Hematocrit (Bld) [Volume fraction] 28.4 % Low 36.0-46.0 [facility] Comment on above: Performed By: #### F OL #### [address] [address] Hemoglobin (Bld) [Mass/Vol] 9.3 g/dL Low 12.0-16.0 [facility] Comment on above: Performed By: #### F OL #### [address] [address] MCH (RBC) [Entitic mass] 30.7 pg Normal 27.0-35.0 [facility] Comment on above: Performed By: #### F OL #### [address] [address] MCHC (RBC) [Mass/Vol] 32.8 % Normal 31.0-37.0 [facility] Comment on above: Performed By: #### F OL #### [address] [address] MCV (RBC) [Entitic vol] 93.4 fL Normal 80.0-100.0 [facility] Comment on above: Performed By: #### F OL #### [address] [address] Platelet mean volume (Bld) [Entitic vol] 8.4 fL Normal 6.7-10.6 [facility] Comment on above: Performed By: #### F OL #### [address] [address] Platelets (Bld) [#/Vol] 246 x10*3/mcL Normal 150-350 [facility] Comment on above: Performed By: #### F OL #### [address] [address] RBC (Bld) [#/Vol] 3.04 x10*6/mcL Low 3.80-5.20 [facility] Comment on above: Performed By: #### F OL #### [address] [address] WBC (Bld) [#/Vol] 8.2 x10*3/mcL Normal 4.5-11.0 [facility] Comment on above: Performed By: #### F OL #### [address] [address] Magnesiumon 02-15-2020 Magnesium [Mass/Vol] 2.1 mg/dL Normal 1.7-2.4 [facility] Comment on above: Performed By: #### T IBC #### [address] [address] Nephrology Progress Noteon 0 02-15-2020 Nephrology Progress [...] acute pulmonary process. Signed By: Manolo [facility]UMAR, [facility] Computed Tomography No qualifying data available. Ultrasound No qualifying data available. Magnetic Resonance Imaging No qualifying data available. Nuclear Medicine No qualifying data available. Physical Exam Lungs: [Clear, non-labored respiration]. Heart: [Normal rate, regular rhythm, no edema]. Abdomen: [Soft, non-tender, non-distended, normal bowel sounds]. Mental Status:[Alert and oriented x3]. Medications Inpatient acetaminophen, 650 mg, Oral, q6hr, PRN acetaminophen, 1000 mg, Oral, [id number] Times ALPRAZolam, 0.25 mg, Oral, HS (at bedtime) calcitriol, 0.25 mcg, Oral, Mo//Fr Dulcolax Laxative, 10 mg, Oral, Daily, PRN Haldol, 2.5 mg, 0.5 mL, IM, [id number] Times, PRN hydrALAZINE, 25 mg, Oral, TID Lovenox, 30 mg, 0.3 mL, Subcutaneous, q24hr meclizine, 25 mg, Oral, TID, PRN MiraLax, 17 g, 1 EA, Oral, Daily naloxone, 0.4 mg, 1 mL, IV Push, q2min, PRN Ellenton 5 mg-325 mg oral tablet, 1 tabs, [...] by Dr. Jordan on 02/09 Discharged to [place] for rehab post surgery. 6. Intertrochanteric fracture [...] Hearing loss sensory, bilateral Discharge planning to [place]. Follow-up with Dr. Chew on discharge. Electronically [...] several weeks from now Electronically signed by Dilan Chew DOariobenito 02/15/20 23:31 EDT Normal [facility] Progress Note-Clark 2019 Progress Note-Nurse Nurse Serg called [facility] to give report regarding the discharge. Nurse to spoke to [place]. Nurse reported that she does not have ETA on discharge yet but will contact once the patient leaves. Nurse reported the last vitals to [place]. Nurse explained that the patient came in due to a fall and had a left IM Nailing on the . Nurse reported that she has two silver mepilex's on the hip. Nurse explained that the areas should not be Immerged in water. Nurse reported that the patient does have occasional hallucinations. Nurse reported that the last bowel movement was today. Nurse gave the daughter's phone number and the spouse's phone number. Nurse explained that the bruising and skin tears. Electronically signed by Ming Serg S 02/15/20 13:31 EDT Normal [facility] Provider Letteron 02-15-2020 Provider Letter Justino Dhaliwal DO [address] [place] [id number] Re: Jesús Ovidio Date of Visit: 02/09/2020 Dear Justino Dhaliwal, [...] - (02/15/2020) Hospitalist Discharge Summary Note Normal [facility] Renal Panelon 02-15-2020 Albumin [Mass/Vol] 3.0 g/dL Low 3.2-4.9 [facility] Comment on above: Result Comment: [facility] Laboratory updated the methodology used for albumin testing on 05/04/18. Albumin measurement was performed using a bromcresol purple dye-binding assay. Performed By: #### E GFR #### [facility] [address] [place] [address] Anion gap [Moles/Vol] 15 mmol/L Normal 7-17 [facility] Comment on above: Performed By: #### E GFR #### [address] [place] [address] Calcium [Mass/Vol] 8.2 mg/dL Low 8.5-10.3 [facility] Comment on above: Performed By: #### E GFR #### [address] [address] Chloride [Moles/Vol] 103 mmol/L Normal 98-110 [facility] Comment on above: Performed By: #### E GFR #### [address] [address] CO2 [Moles/Vol] 25 mmol/L Normal 22-32 [facility] Comment on above: Performed By: #### E GFR #### [address] [address] Creatinine [Mass/Vol] 1.51 mg/dL High 0.44-1.03 [facility] Comment on above: Performed By: #### E GFR #### [address] [address] Glucose [Mass/Vol] 105 mg/dL High 70-99 [facility] Comment on above: Performed By: #### E GFR #### [address] [address] Phosphate [Mass/Vol] 3.4 mg/dL Normal 2.5-4.6 [facility] Comment on above: Performed By: #### E GFR #### [address] [address] Potassium [Moles/Vol] 4.4 mmol/L Normal 3.4-4.8 [facility] Comment on above: Performed By: #### E GFR #### [address] [address] Sodium [Moles/Vol] 139 mmol/L Normal 133-142 [facility] Comment on above: Performed By: #### E GFR #### [address] [address] Urea nitrogen [Mass/Vol] 26 mg/dL Normal 8-26 [facility] Comment on above: Performed By: #### E GFR #### [address] [address] Urea nitrogen/Creatinine [Mass ratio] 17.2 mg/mg Normal 10.0-20.0 [facility] Comment on above: Performed By: #### E GFR #### [address] [address] [id number] RNA PCR Send O uton 02-15-2020 [id number] RNA by PCR Not Detected Normal Not Detected [facility] Comment on above: Order Comment: utmcf or nh placement in a couple days Result Comment: Miss ing Attachment Chartable Reference Lab Reports Can be viewed in source system Performed By: #### E GFR #### [address] [address] .eGFRon 02-14-2020 eGFR Non-AA 37 mL/min/1.73m? Low >=60 [facility] Comment on above: Result [...] dosing. Performed By: #### E GFR #### [address] [address] eGFR AA 45 mL/min/1.73m? Low >=[address] [facility] Comment on above: Result Comment: Resu lt = 0-14.9 mL/min/1.73 m2 Kidney failure or Dialysis Result = 15-29 mL/min/1.73 m2 Severe decrease in GFR Result = 30-59 mL/min/1.73 m2 Moderate decrease in GFR Result >= 60 mL/min/1.73 m2 Normal or increased GFR Performed By: #### E GFR #### [address] [address] CBCon 02-14-2020 Erythrocyte distribution width (RBC) [Ratio] 14.5 % Normal 11.6-14.8 [facility] Comment on above: Performed By: #### T IBC #### [address] [address] Hematocrit (Bld) [Volume fraction] 26.8 % Low 36.0-46.0 [facility] Comment on above: Performed By: #### T IBC #### [address] [address] Hemoglobin (Bld) [Mass/Vol] 8.8 g/dL Low 12.0-16.0 [facility] Comment on above: Performed By: #### T IBC #### [address] [address] MCH (RBC) [Entitic mass] 30.6 pg Normal 27.0-35.0 [facility] Comment on above: Performed By: #### T IBC #### [address] [address] MCHC (RBC) [Mass/Vol] 33.0 % Normal 31.0-37.0 [facility] Comment on above: Performed By: #### T IBC #### [address] [address] MCV (RBC) [Entitic vol] 92.8 fL Normal 80.0-100.0 [facility] Comment on above: Performed By: #### T IBC #### [facility] [address] [place] [address] Platelet mean volume (Bld) [Entitic vol] 8.7 fL Normal 6.7-10.6 [facility] Comment on above: Performed By: #### T IBC #### [address] [address] Platelets (Bld) [#/Vol] 190 x10*3/mcL Normal 150-350 [facility] Comment on above: Performed By: #### T IBC #### [address] [address] RBC (Bld) [#/Vol] 2.89 x10*6/mcL Low 3.80-5.20 [facility] Comment on above: Performed By: #### T IBC #### [address] [address] WBC (Bld) [#/Vol] 8.6 x10*3/mcL Normal 4.5-11.0 [facility] Comment on above: Performed By: #### T IBC #### [address] [address] Magnesiumon 02-14-2020 Magnesium [Mass/Vol] 2.2 mg/dL Normal 1.7-2.4 [facility] Comment on above: Performed By: #### P HOS #### [address] [address] Nephrology Progress Noteon 0 02-14-2020 Nephrology Progress [...] acute pulmonary process. Signed By: Manolo [facility]UM[facility] Computed Tomography No qualifying data available. [...] Oral, q6hr, PRN acetaminophen, 1000 mg, Oral, [id number] Times ALPRAZolam, 0.25 mg, Oral, HS (at bedtime) calcitriol, 0.25 mcg, Oral, Mo// Dulcolax Laxative, 10 mg, Oral, Daily, PRN Haldol, 2.5 mg, 0.5 mL, IM, [id number] Times, PRN hydrALAZINE, 25 mg, Oral, TID Lovenox, 30 mg, 0.3 mL, Subcutaneous, q24hr meclizine, 25 mg, Oral, TID, PRN naloxone, 0.4 mg, 1 mL, IV Push, q2min, PRN Ellenton 5 mg-325 mg oral tablet, 1 tabs, [...] Hearing loss sensory, bilateral Possible discharge to [facility] testing pending. Follow-up with Dr. Chew on [...] with use of hydralazine. Electronically signed by Mariaenla NIELSON Dilan Uwariojose glamar 02/14/20 22:40 EDT Normal [facility] Orthopedic Progress Noteon 0 02-14-2020 Orthopedic Progress [...] Oral, q6hr, PRN acetaminophen, 1000 mg, Oral, [id number]-[id number] Times ALPRAZolam, 0.25 mg, Oral, HS (at bedtime) calcitriol, 0.25 mcg, Oral, Mo//Fr Dulcolax Laxative, 10 mg, Oral, Daily, PRN Haldol, 2.5 mg, 0.5 mL, IM, [id number] Times, PRN hydrALAZINE, 25 mg, Oral, TID Lovenox, 30 mg, 0.3 mL, Subcutaneous, q24hr meclizine, 25 mg, Oral, TID, PRN MiraLax, 17 g, 1 EA, Oral, Daily naloxone, 0.4 mg, 1 mL, IV Push, q2min, PRN Ell[place] 5 mg-325 mg oral tablet, 1 tabs, [...] and pain control. We will follow-up at [facility] in 2 weeks for recheck. 3. Chronic kidney disease 4. Electrolyte abnormality 5. Renal osteodystrophy 6. Hypertension 7. Status post hip surgery 8. Laceration of head 9. Hearing loss sensory, bilateral 10. Anemia Electronically signed by Naman Edmond PA-C 02/14/20 19:09 EDT Normal [facility] Renal Panelon 02-14-2020 Albumin [Mass/Vol] 2.9 g/dL Low 3.2-4.9 [facility] Comment on above: Result Comment: [facility] Laboratory updated the methodology used for albumin testing on 05/04/18. Albumin measurement was performed using a bromcresol purple dye-binding assay. Performed By: #### E GFR #### [address] [address] Anion gap [Moles/Vol] 14 mmol/L Normal 7-17 [facility] Comment on above: Performed By: #### E GFR #### [address] [address] Calcium [Mass/Vol] 8.1 mg/dL Low 8.5-10.3 [facility] Comment on above: Performed By: #### E GFR #### [address] [address] Chloride [Moles/Vol] 103 mmol/L Normal 98-110 [facility] Comment on above: Performed By: #### E GFR #### [address] [address] CO2 [Moles/Vol] 25 mmol/L Normal 22-32 [facility] Comment on above: Performed By: #### E GFR #### [address] [address] Creatinine [Mass/Vol] 1.37 mg/dL High 0.44-1.03 [facility] Comment on above: Performed By: #### E GFR #### [address] [place] [address] Glucose [Mass/Vol] 115 mg/dL High 70-99 [facility] Comment on above: Performed By: #### E GFR #### [address] [address] Phosphate [Mass/Vol] 2.0 mg/dL Low 2.5-4.6 [facility] Comment on above: Performed By: #### E GFR #### [address] [address] Potassium [Moles/Vol] 3.9 mmol/L Normal 3.4-4.8 [facility] Comment on above: Performed By: #### E GFR #### [address] [address] Sodium [Moles/Vol] 138 mmol/L Normal 133-142 [facility] Comment on above: Performed By: #### E GFR #### [address] [address] Urea nitrogen [Mass/Vol] 20 mg/dL Normal 8-26 [facility] Comment on above: Performed By: #### E GFR #### [address] [address] Urea nitrogen/Creatinine [Mass ratio] 14.6 mg/mg Normal 10.0-20.0 [facility] Comment on above: Performed By: #### E GFR #### [address] [address] .UA Microscp Aon 02-13-2020 UA Mucus Present Abnormal Absent [facility] Comment on above: Performed By: #### C [id number] #### [address] [address] UA RBC Quant 0 /HPF Normal 0-5 [facility] Comment on above: Performed By: #### C [id number] #### [address] [address] UA WBC Quant 0 /HPF Normal 0-5 [facility] Comment on above: Performed By: #### C [id number] #### [place] [id number] .eGFRon 02-13-2020 eGFR Non-AA 30 mL/min/1.73m? Low >=60 [facility] Comment on above: Order [...] dosing. Performed By: #### E GFR #### [place] [address] eGFR AA 36 mL/min/1.73m? Low >=[address] [facility] Comment on above: Order Comment: Order added by Discern rule Result Comment: Resu lt = 0-14.9 mL/min/1.73 m2 Kidney failure or Dialysis Result = 15-29 mL/min/1.73 m2 Severe decrease in GFR Result = 30-59 mL/min/1.73 m2 Moderate decrease in GFR Result >= 60 mL/min/1.73 m2 Normal or increased GFR Performed By: #### E GFR #### [place] [address] CBCon 02-13-2020 Erythrocyte distribution width (RBC) [Ratio] 14.5 % Normal 11.6-14.8 [facility] Comment on above: Performed By: #### E GFR #### [place] [address] Hematocrit (Bld) [Volume fraction] 27.6 % Low 36.0-46.0 [facility] Comment on above: Performed By: #### E GFR #### [place] [id number] Hemoglobin (Bld) [Mass/Vol] 9.1 g/dL Low 12.0-16.0 [facility] Comment on above: Performed By: #### E GFR #### [address] [address] MCH (RBC) [Entitic mass] 30.7 pg Normal 27.0-35.0 [facility] Comment on above: Performed By: #### E GFR #### [address] [address] MCHC (RBC) [Mass/Vol] 32.9 % Normal 31.0-37.0 [facility] Comment on above: Performed By: #### E GFR #### [address] [address] MCV (RBC) [Entitic vol] 93.2 fL Normal 80.0-100.0 [facility] Comment on above: Performed By: #### E GFR #### [address] [address] Platelet mean volume (Bld) [Entitic vol] 9.0 fL Normal 6.7-10.6 [facility] Comment on above: Performed By: #### E GFR #### [address] [address] Platelets (Bld) [#/Vol] 169 x10*3/mcL Normal 150-350 [facility] Comment on above: Performed By: #### E GFR #### [address] [address] RBC (Bld) [#/Vol] 2.96 x10*6/mcL Low 3.80-5.20 [facility] Comment on above: Performed By: #### E GFR #### [address] [address] WBC (Bld) [#/Vol] 9.8 x10*3/mcL Normal 4.5-11.0 [facility] Comment on above: Performed By: #### E GFR #### [address] [place] [address] Graduate Assistant Progress Noteon 02-13-2020 Graduate Assistant Progress Note Second IMM letter delivered to patient. Electronically signed by Kasie Flowers 02/13/20 09:58 EDT Normal [facility] Magnesiumon 02-13-2020 Magnesium [Mass/Vol] 2.3 mg/dL Normal 1.7-2.4 [facility] Comment on above: Performed By: #### E GFR #### [address] [address] Nephrology Progress Noteon 0 02-13-2020 Nephrology Progress [...] acute pulmonary process. Signed By: Manolo KUMAR, [facility] Fem[facility] 2 or More Views Left [...] mg, 1 mL, IV Push, q2min, PRN Ellenton 5 mg-325 mg oral tablet, 1 tabs, [...] Dilan Chew DO 02/13/20 23:09 EDT Normal [facility] Orthopedic Progress Noteon 0 02-13-2020 Orthopedic Progress [...] Oral, q6hr, PRN acetaminophen, 1000 mg, Oral, [id number] Times ALPRAZolam, 0.25 mg, Oral, HS (at bedtime) calcitriol, 0.25 mcg, Oral, Mo/We/Fr Dulcolax Laxative, 10 mg, Oral, Daily, PRN Haldol, 2.5 mg, 0.5 mL, IM, [id number] Times, PRN hydrALAZINE, 25 mg, Oral, TID Lovenox, 30 mg, 0.3 mL, Subcutaneous, q24hr meclizine, 25 mg, Oral, TID, PRN naloxone, 0.4 mg, 1 mL, IV Push, q2min, PRN Ellenton 5 mg-325 mg oral tablet, 1 tabs, [...] prophylaxis, and PT. Okay to DC to intermediate facility from orthopedic standpoint. Follow-up at [facility] with Dr. Jordan in 2 weeks. 3. Chronic kidney disease 4. Electrolyte abnormality 5. Renal osteodystrophy 6. Hypertension 7. Status post hip surgery 8. Laceration of head 9. Hearing loss sensory, bilateral 10. Anemia Electronically signed by Naman Edmond PA-C 02/13/20 17:38 EDT Normal [facility] Renal Panelon 02-13-2020 Albumin [Mass/Vol] 3.4 g/dL Normal 3.2-4.9 [facility] Comment on above: Result Comment: [facility] Laboratory updated the methodology used for albumin testing on 05/04/18. Albumin measurement was performed using a bromcresol purple dye-binding assay. Performed By: #### R ENAL #### [facility] [address] [place] [address] Anion gap [Moles/Vol] 13 mmol/L Normal 7-17 [facility] Comment on above: Performed By: #### R ENAL #### [facility] [address] [place] [address] Calcium [Mass/Vol] 8.0 mg/dL Low 8.5-10.3 [facility] Comment on above: Performed By: #### R ENAL #### [address] [address] Chloride [Moles/Vol] 105 mmol/L Normal 98-110 [facility] Comment on above: Performed By: #### R ENAL #### [address] [address] CO2 [Moles/Vol] 26 mmol/L Normal 22-32 [facility] Comment on above: Performed By: #### R ENAL #### [address] [address] Creatinine [Mass/Vol] 1.64 mg/dL High 0.44-1.03 [facility] Comment on above: Performed By: #### R ENAL #### [address] [address] Glucose [Mass/Vol] 114 mg/dL High 70-99 [facility] Comment on above: Performed By: #### R ENAL #### [address] [address] Phosphate [Mass/Vol] 2.8 mg/dL Normal 2.5-4.6 [facility] Comment on above: Performed By: #### R ENAL #### [address] [address] Potassium [Moles/Vol] 4.2 mmol/L Normal 3.4-4.8 [facility] Comment on above: Performed By: #### R ENAL #### [address] [address] Sodium [Moles/Vol] 140 mmol/L Normal 133-142 [facility] Comment on above: Performed By: #### R ENAL #### [address] [address] Urea nitrogen [Mass/Vol] 23 mg/dL Normal 8-26 [facility] Comment on above: Performed By: #### R ENAL #### [facility] [address] [place] [address] Urea nitrogen/Creatinine [Mass ratio] 14.0 mg/mg Normal 10.0-20.0 [facility] Comment on above: Performed By: #### R ENAL #### [address] [place] [address] UA w Culture if Indon 2019 Color (U) Yellow Normal [facility] Comment on above: Performed By: #### T IBC #### [address] [place] [address] Glucose (U) [Mass/Vol] Negative Normal Negative [facility] Comment on above: Performed By: #### T IBC #### [address] [address] Ketones Ql (U) Negative Normal Negative [facility] Comment on above: Performed By: #### T IBC #### [address] [place] [address] UA Blood Moderate Abnormal Negative [facility] Comment on above: Performed By: #### T IBC #### [address] [place] [address] UA Clarity Hazy Normal [facility] Comment on above: Performed By: #### T IBC #### [address] [place] [address] UA Leukocyte Esterase Negative Normal Negative [facility] Comment on above: Performed By: #### T IBC #### [address] [place] [address] UA Nitrite Negative Normal Negative [facility] Comment on above: Performed By: #### T IBC #### [address] [address] UA pH 5.0 Normal 4.5 - 7.8 [facility] Comment on above: Performed By: #### T IBC #### [address] [place] [address] UA Protein 30 mg/dL Abnormal Negative [facility] Comment on above: Performed By: #### T IBC #### [address] [address] UA Source Clean Catch Normal [facility] Comment on above: Performed By: #### T IBC #### [address] [address] UA Spec Grav 1.014 Normal 1.003-1.035 [facility] Comment on above: Performed By: #### T IBC #### [place] [id number] UA Urobilinogen 0.2 mg/dL Normal 0.2 - 1.0 [facility] Comment on above: Performed By: #### T IBC #### [place] [id number] Urobilinogen Qn (U) Negative Normal Negative [facility] Comment on above: Performed By: #### T IBC #### [place] [address] .eGFRon 02-12-2020 eGFR AA 44 mL/min/1.73m? Low >=[address] [facility] Comment on above: Order Comment: Order added by Discern rule Result Comment: Resu lt = 0-14.9 mL/min/1.73 m2 Kidney failure or Dialysis Result = 15-29 mL/min/1.73 m2 Severe decrease in GFR Result = 30-59 mL/min/1.73 m2 Moderate decrease in GFR Result >= 60 mL/min/1.73 m2 Normal or increased GFR Performed By: #### E GFR #### [place] [address] eGFR Non-AA 36 mL/min/1.73m? Low >=60 [facility] Comment on above: Order [...] dosing. Performed By: #### E GFR #### [address] [address] CBCon 02-12-2020 Erythrocyte distribution width (RBC) [Ratio] 14.3 % Normal 11.6-14.8 [facility] Comment on above: Performed By: #### T IBC #### [address] [address] Hematocrit (Bld) [Volume fraction] 28.6 % Low 36.0-46.0 [facility] Comment on above: Performed By: #### T IBC #### [address] [address] Hemoglobin (Bld) [Mass/Vol] 9.4 g/dL Low 12.0-16.0 [facility] Comment on above: Performed By: #### T IBC #### [address] [address] MCH (RBC) [Entitic mass] 31.0 pg Normal 27.0-35.0 [facility] Comment on above: Performed By: #### T IBC #### [address] [address] MCHC (RBC) [Mass/Vol] 33.0 % Normal 31.0-37.0 [facility] Comment on above: Performed By: #### T IBC #### [address] [address] MCV (RBC) [Entitic vol] 93.9 fL Normal 80.0-100.0 [facility] Comment on above: Performed By: #### T IBC #### [address] [address] Platelet mean volume (Bld) [Entitic vol] 8.7 fL Normal 6.7-10.6 [facility] Comment on above: Performed By: #### T IBC #### [address] [address] Platelets (Bld) [#/Vol] 136 x10*3/mcL Low 150-350 [facility] Comment on above: Performed By: #### T IBC #### [address] [address] RBC (Bld) [#/Vol] 3.05 x10*6/mcL Low 3.80-5.20 [facility] Comment on above: Performed By: #### T IBC #### [address] [address] WBC (Bld) [#/Vol] 11.4 x10*3/mcL High 4.5-11.0 [facility] Comment on above: Performed By: #### T IBC #### [address] [address] Magnesiumon 02-12-2020 Magnesium [Mass/Vol] 2.5 mg/dL High 1.7-2.4 [facility] Comment on above: Performed By: #### M G #### [address] [address] Nephrology Progress Noteon 0 02-12-2020 Nephrology Progress [...] pulmonary process. Signed By: Manolo KUMAR, mad XR Femur 2 or More Views Left [...] mg, 1 mL, IV Push, q2min, PRN Ellenton 5 mg-325 mg oral tablet, 1 tabs, [...] Dilan Chew DO 02/12/20 21:34 EDT Normal [facility] Orthopedic Progress Noteon 0 02-12-2020 Orthopedic Progress [...] mg, 1 mL, IV Push, q2min, PRN Ellenton 5 mg-325 mg oral tablet, 1 tabs, [...] Naman Edmond PA-C 02/12/20 11:16 EDT Normal [facility] PTH-INTon 02-12-2020 PTH Intact 94 pg/mL High 12-88 [facility] Comment on above: Performed By: #### P HOS #### [address] [address] Procalcitonin Levelon 2019 Procalcitonin Lvl 0.54 ng/mL High <=0.49 [facility] Comment on above: Result Comment: < [...] hours. Performed By: #### E GFR #### [facility] [address] [place] [address] Progress Note - [employer] Progress Note - [...] mg, 1 mL, IV Push, q2min, PRN Ellenton 5 mg-325 mg oral tablet, 1 tabs, [...] Dose: 02/12/20 21:00:00 EDT, Dispense From Location: [facility] EKG Indwelling Urinary Catheter Discontinue Sitter at [...] Anticipated Discharge Date: Undetermined Electronically signed by Bang [employer]RARY ACQUISITIONS TECHNICIAN-FENCE SETTERKenyatta Jaquelin 02/12/20 10:03 EDT Normal [facility] Progress Note-Nurseon 2019 Progress Note-Nurse Attempted to administer morning meds and new meds that were ordered by nephrology. Patient is currently confused and combative, and refusing all patient care. Electronically signed by CulpeperMery carmichael Leah 02/12/20 13:24 EDT Normal [facility] Renal Panelon 02-12-2020 Albumin [Mass/Vol] 3.6 g/dL Normal 3.2-4.9 [facility] Comment on above: Result Comment: [facility] Laboratory updated the methodology used for albumin testing on 05/04/18. Albumin measurement was performed using a bromcresol purple dye-binding assay. Performed By: #### P HOS #### [address] [address] Anion gap [Moles/Vol] 14 mmol/L Normal 7-17 [facility] Comment on above: Performed By: #### P HOS #### [address] [address] Calcium [Mass/Vol] 8.1 mg/dL Low 8.5-10.3 [facility] Comment on above: Performed By: #### P HOS #### [address] [address] Chloride [Moles/Vol] 98 mmol/L Normal 98-110 [facility] Comment on above: Performed By: #### P HOS #### [address] [address] CO2 [Moles/Vol] 26 mmol/L Normal 22-32 [facility] Comment on above: Performed By: #### P HOS #### [address] [address] Creatinine [Mass/Vol] 1.39 mg/dL High 0.44-1.03 [facility] Comment on above: Performed By: #### P HOS #### [address] [address] Glucose [Mass/Vol] 134 mg/dL High 70-99 [facility] Comment on above: Performed By: #### P HOS #### [address] [address] Phosphate [Mass/Vol] 2.6 mg/dL Normal 2.5-4.6 [facility] Comment on above: Performed By: #### P HOS #### [address] [address] Potassium [Moles/Vol] 3.8 mmol/L Normal 3.4-4.8 [facility] Comment on above: Performed By: #### P HOS #### [address] [address] Sodium [Moles/Vol] 134 mmol/L Normal 133-142 [facility] Comment on above: Performed By: #### P HOS #### [address] [address] Urea nitrogen [Mass/Vol] 21 mg/dL Normal 8-26 [facility] Comment on above: Performed By: #### P HOS #### [address] [address] Urea nitrogen/Creatinine [Mass ratio] 15.1 mg/mg Normal 10.0-20.0 [facility] Comment on above: Performed By: #### P HOS #### [address] [address] XR Chest 1 Viewon 02-12-2020 XR Chest [...] Electronically Signed in Other Vendor System) Normal [facility] .eGFRon 02-11-2020 eGFR Non-AA 33 mL/min/1.73m? Low >=60 [facility] Comment on above: Order [...] dosing. Performed By: #### F OL #### [address] [address] eGFR AA 40 mL/min/1.73m? Low >=[address] [facility] Comment on above: Order Comment: Order added by Discern rule Result Comment: Resu lt = 0-14.9 mL/min/1.73 m2 Kidney failure or Dialysis Result = 15-29 mL/min/1.73 m2 Severe decrease in GFR Result = 30-59 mL/min/1.73 m2 Moderate decrease in GFR Result >= 60 mL/min/1.73 m2 Normal or increased GFR Performed By: #### F OL #### [address] [address] B12on 02-11-2020 Cobalamin (Vitamin B12) [Mass/Vol] 135 pg/mL Low 180-914 [facility] Comment on above: Order Comment: ok to add on to am labs per binu02/11/2020 12:08:01 EDT lottie Performed By: #### T IBC #### [address] [address] CBCon 02-11-2020 Erythrocyte distribution width (RBC) [Ratio] 14.2 % Normal 11.6-14.8 [facility] Comment on above: Performed By: #### P HOS #### [address] [address] Hematocrit (Bld) [Volume fraction] 32.5 % Low 36.0-46.0 [facility] Comment on above: Performed By: #### P HOS #### [address] [address] Hemoglobin (Bld) [Mass/Vol] 10.6 g/dL Low 12.0-16.0 [facility] Comment on above: Performed By: #### P HOS #### [address] [address] MCH (RBC) [Entitic mass] 30.9 pg Normal 27.0-35.0 [facility] Comment on above: Performed By: #### P HOS #### [address] [address] MCHC (RBC) [Mass/Vol] 32.6 % Normal 31.0-37.0 [facility] Comment on above: Performed By: #### P HOS #### [address] [address] MCV (RBC) [Entitic vol] 94.6 fL Normal 80.0-100.0 [facility] Comment on above: Performed By: #### P HOS #### [address] [address] Platelet mean volume (Bld) [Entitic vol] 8.5 fL Normal 6.7-10.6 [facility] Comment on above: Performed By: #### P HOS #### [address] [address] Platelets (Bld) [#/Vol] 156 x10*3/mcL Normal 150-350 [facility] Comment on above: Performed By: #### P HOS #### [address] [address] RBC (Bld) [#/Vol] 3.44 x10*6/mcL Low 3.80-5.20 [facility] Comment on above: Performed By: #### P HOS #### [address] [address] WBC (Bld) [#/Vol] 11.3 x10*3/mcL High 4.5-11.0 [facility] Comment on above: Performed By: #### P HOS #### [address] [address] Ferritinon 02-11-2020 Ferritin [Mass/Vol] 75.8 ng/mL Normal 11.0-306.8 [facility] Comment on above: Performed By: #### T IBC #### [address] [address] Folate Lvlon 02-11-2020 Folate Lvl 4.0 ng/mL Low >=5.9 [facility] Comment on above: Result Comment: A [facility] Technical Consultation has determined that deficient Folate concentrations are considered to be less than 4 ng/mL. Performed By: #### F OL #### [address] [address] Magnesiumon 02-11-2020 Magnesium [Mass/Vol] 1.6 mg/dL Low 1.7-2.4 [facility] Comment on above: Performed By: #### E GFR #### [address] [address] Nephrology Progress Noteon 0 02-11-2020 Nephrology Progress [...] (at bedtime) calcitriol, 0.25 mcg, Oral, Mo// hydrALAZINE, 25 mg, Oral, TID HYDROmorphone, 0.5 mg, 0.5 mL, IV Push, q2hr, PRN Lovenox, 30 mg, 0.3 mL, Subcutaneous, q24hr meclizine, 25 mg, Oral, TID, PRN naloxone, 0.4 mg, 1 mL, IV Push, q2min, PRN Ellenton 5 mg-325 mg oral tablet, 1 tabs, [...] Dose: 02/11/20 14:00:00 EDT, Dispense From Location: [facility] Electronically signed by Dilan Chew DO 02/11/20 20:26 EDT Normal [facility] Orthopedic Progress Noteon 0 02-11-2020 Orthopedic Progress [...] Date: 02/11/20 13:56:00 EDT, Dispense From Location: [facility], Prophylaxis- Pre/Post-Op enoxaparin, 30 mg, Subcutaneous, Injection, q24hr, First Dose: 02/11/20 13:00:00 EDT, Dispense From Location: [id number] hydrocodone-acetaminop hen, 1 tabs, Oral, Tab, q4hr, PRN moderate pain [4-6 on pain scale], First Dose: 02/10/20 13:57:00 EDT, Dispense From Location: [id number] sodium chloride, 10 mL, IV Push, Injection, As Indicated, PRN flush, First Dose: 02/10/20 14:05:00 EDT, Dispense From Location: [id number] Basic Metabolic Profile Below the Knee Graduated [...] Chele Jordan MD 02/11/20 09:11 EDT Normal [facility] Progress Note - [employer] Progress Note - [...] mg, 1 mL, IV Push, q2min, PRN Ellenton 5 mg-325 mg oral tablet, 1 tabs, [...] Status: Full Resuscitation [1] Hospitalist Progress/SOAP Note; Arvin MOTLEY Sneha L 02/10/2020 15:59 EDT Electronically signed by Arvin MOTLEY Sneha Semaj 02/11/20 17:37 EDT Normal [facility] Renal Panelon 02-11-2020 Albumin [Mass/Vol] 2.9 g/dL Low 3.2-4.9 [facility] Comment on above: Result Comment: [facility] Laboratory updated the methodology used for albumin testing on 05/04/18. Albumin measurement was performed using a bromcresol purple dye-binding assay. Performed By: #### F OL #### [address] [address] Anion gap [Moles/Vol] 12 mmol/L Normal 7-17 [facility] Comment on above: Performed By: #### F OL #### [address] [address] Calcium [Mass/Vol] 8.0 mg/dL Low 8.5-10.3 [facility] Comment on above: Performed By: #### F OL #### [address] [address] Chloride [Moles/Vol] 99 mmol/L Normal 98-110 [facility] Comment on above: Performed By: #### F OL #### [address] [address] CO2 [Moles/Vol] 25 mmol/L Normal 22-32 [facility] Comment on above: Performed By: #### F OL #### [address] [address] Creatinine [Mass/Vol] 1.51 mg/dL High 0.44-1.03 [facility] Comment on above: Performed By: #### F OL #### [address] [address] Glucose [Mass/Vol] 193 mg/dL High 70-99 [facility] Comment on above: Performed By: #### F OL #### [address] [address] Phosphate [Mass/Vol] 2.2 mg/dL Low 2.5-4.6 [facility] Comment on above: Performed By: #### F OL #### [address] [address] Potassium [Moles/Vol] 4.0 mmol/L Normal 3.4-4.8 [facility] Comment on above: Performed By: #### F OL #### [address] [address] Sodium [Moles/Vol] 132 mmol/L Low 133-142 [facility] Comment on above: Performed By: #### F OL #### [address] [address] Urea nitrogen [Mass/Vol] 29 mg/dL High 8-26 [facility] Comment on above: Performed By: #### F OL #### [address] [address] Urea nitrogen/Creatinine [Mass ratio] 19.2 mg/mg Normal 10.0-20.0 [facility] Comment on above: Performed By: #### F OL #### [address] [address] TIBCon 02-11-2020 Iron [Mass/Vol] 22 ug/dL Low 28-170 [facility] Comment on above: Performed By: #### T IBC #### [address] [place] [address] Iron Sat 7.6 % Low >=16.0 [facility] Comment on above: Performed By: #### T IBC #### [facility] [address] [place] [address] TIBC 288 mcg/dL Normal 261-478 [facility] Comment on above: Performed By: #### T IBC #### [address] [address] [place] [address] Transferrin [Mass/Vol] 193 mg/dL Normal 192-382 Bl [facility] Comment on above: Performed By: #### T IBC #### [address] [address] XR Femur 2 or More Views Lef [...] Electronically Signed in Other Vendor System) Normal [facility] .eGFRon 02-10-2020 eGFR Non-AA 26 mL/min/1.73m? Low >=60 [facility] Comment on above: Result [...] dosing. Performed By: #### T IBC #### [address] [address] eGFR AA 31 mL/min/1.73m? Low >=[address] [facility] Comment on above: Result Comment: Resu lt = 0-14.9 mL/min/1.73 m2 Kidney failure or Dialysis Result = 15-29 mL/min/1.73 m2 Severe decrease in GFR Result = 30-59 mL/min/1.73 m2 Moderate decrease in GFR Result >= 60 mL/min/1.73 m2 Normal or increased GFR Performed By: #### T IBC #### [address] [address] CBC w/ Diffon 02-10-2020 Erythrocyte distribution width (RBC) [Ratio] 14.8 % Normal 11.6-14.8 [facility] Comment on above: Performed By: #### P HOS #### [address] [address] Hematocrit (Bld) [Volume fraction] 38.8 % Normal 36.0-46.0 [facility] Comment on above: Performed By: #### P HOS #### [address] [address] Hemoglobin (Bld) [Mass/Vol] 12.4 g/dL Normal 12.0-16.0 [facility] Comment on above: Performed By: #### P HOS #### [address] [address] MCH (RBC) [Entitic mass] 30.0 pg Normal 27.0-35.0 [facility] Comment on above: Performed By: #### P HOS #### [address] [address] MCHC (RBC) [Mass/Vol] 32.1 % Normal 31.0-37.0 [facility] Comment on above: Performed By: #### P HOS #### [address] [address] MCV (RBC) [Entitic vol] 93.5 fL Normal 80.0-100.0 [facility] Comment on above: Performed By: #### P HOS #### [address] [address] Platelet mean volume (Bld) [Entitic vol] 8.2 fL Normal 6.7-10.6 [facility] Comment on above: Performed By: #### P HOS #### [address] [address] Platelets (Bld) [#/Vol] 198 x10*3/mcL Normal 150-350 [facility] Comment on above: Performed By: #### P HOS #### [address] [address] RBC (Bld) [#/Vol] 4.15 x10*6/mcL Normal 3.80-5.20 [facility] Comment on above: Performed By: #### P HOS #### [address] [address] WBC (Bld) [#/Vol] 11.1 x10*3/mcL High 4.5-11.0 [facility] Comment on above: Performed By: #### P HOS #### [address] [address] [facility] 02-10-2020 Albumin [Mass/Vol] 3.7 g/dL Normal 3.2-4.9 [facility] Comment on above: Result Comment: [facility] Laboratory updated the methodology used for albumin testing on 05/04/18. Albumin measurement was performed using a bromcresol purple dye-binding assay. Performed By: #### T IBC #### [address] [address] Albumin/Globulin [Mass ratio] 1.3 {ratio} Normal 1.1-2.2 [facility] Comment on above: Performed By: #### T IBC #### [address] [place] [address] Alk Phos 89 IU/L Normal 32-91 [facility] Comment on above: Performed By: #### T IBC #### [address] [place] [address] ALT [Catalytic activity/Vol] 20 U/L Normal 14-54 [facility] Comment on above: Performed By: #### T IBC #### [address] [place] [address] Anion gap [Moles/Vol] 17 mmol/L Normal 7-17 [facility] Comment on above: Performed By: #### T IBC #### [address] [address] AST [Catalytic activity/Vol] 21 U/L Normal 15-41 [facility] Comment on above: Performed By: #### T IBC #### [address] [place] [address] Bili Total 0.9 mg/dL Normal 0.3-1.2 [facility] Comment on above: Performed By: #### T IBC #### [address] [address] Calcium [Mass/Vol] 8.8 mg/dL Normal 8.5-10.3 [facility] Comment on above: Performed By: #### T IBC #### [address] [place] [address] Chloride [Moles/Vol] 102 mmol/L Normal 98-110 [facility] Comment on above: Performed By: #### T IBC #### [address] [place] [address] CO2 [Moles/Vol] 24 mmol/L Normal 22-32 [facility] Comment on above: Performed By: #### T IBC #### [address] [place] [address] Creatinine [Mass/Vol] 1.87 mg/dL High 0.44-1.03 [facility] Comment on above: Performed By: #### T IBC #### [address] [address] Glucose [Mass/Vol] 111 mg/dL High 70-99 [facility] Comment on above: Performed By: #### T IBC #### [address] [address] Potassium [Moles/Vol] 5.2 mmol/L High 3.4-4.8 [facility] Comment on above: Performed By: #### T IBC #### [address] [address] Protein [Mass/Vol] 6.6 g/dL Normal 6.5-8.1 [facility] Comment on above: Performed By: #### T IBC #### [address] [address] Sodium [Moles/Vol] 138 mmol/L Normal 133-142 [facility] Comment on above: Performed By: #### T IBC #### [address] [address] Urea nitrogen [Mass/Vol] 41 mg/dL High 8-26 [facility] Comment on above: Performed By: #### T IBC #### [address] [address] Urea nitrogen/Creatinine [Mass ratio] 21.9 mg/mg High 10.0-20.0 [facility] Comment on above: Performed By: #### T IBC #### [address] [address] Diff [place] 02-10-2020 Baso Absolute 0.0 x10*3/mcL Normal 0.0-0.[address] [facility] Comment on above: Performed By: #### T IBC #### [address] [address] Basophils/100 WBC (Bld) 0.2 % Normal 0.0-1.5 [facility] Comment on above: Performed By: #### T IBC #### [address] [address] Eos Absolute 0.0 x10*3/mcL Normal 0.0-0.4 [facility] Comment on above: Performed By: #### T IBC #### [address] [address] Eosinophils/100 WBC (Bld) 0.0 % Normal 0.0-5.4 [facility] Comment on above: Performed By: #### T IBC #### [address] [address] Lymphocytes (Bld) [#/Vol] 1.2 x10*3/mcL Normal 1.0-4.8 [facility] Comment on above: Performed By: #### T IBC #### [address] [address] Lymphocytes/100 WBC (Bld) 10.7 % Low 27.2-40.8 [facility] Comment on above: Performed By: #### T IBC #### [address] [address] [place] Absolute 1.2 x10*3/mcL High 0.1-1.[address] [facility] Comment on above: Performed By: #### T IBC #### [address] [address] Monocytes/100 WBC (Bld) 10.7 % Normal 3.7-11.9 [facility] Comment on above: Performed By: #### T IBC #### [address] [address] Neutro Absolute 8.7 x10*3/mcL High 1.8-7.7 [facility] Comment on above: Performed By: #### T IBC #### [address] [address] Neutro Auto 78.4 % High 47.2-70.8 [facility] Comment on above: Performed By: #### T IBC #### [facility] [address] [place] [address] Magnesiumon 02-10-2020 Magnesium [Mass/Vol] 2.0 mg/dL Normal 1.7-2.4 [facility] Comment on above: Performed By: #### M G #### [facility] [address] [place] [address] Nephrology Consultationon Nephrology Consultation Reason for Consultation Advanced renal dysfunction CKD stage IV History of Present Illness Patient is an 84-year-old female who is well known to the [facility] and has a known history of advanced [...] activation of EMS. Patient was taken to [facility] ER where she had some scans performed and was found to she had sustained a left intertrochanteric fracture. She was subsequently transferred to [facility] where she has been seen by Dr. oJrdan and at time of examination , she is back from her surgery. She denies having any significant pain, she did report some discomfort, she denies having any chest pain, denies any arrhythmia, denies any fever or chills, nausea or vomiting. being managed from [place] emergency emergency department for left intertrochanteric hip [...] Dose: 02/10/20 22:00:00 EDT, Dispense From Location: [employer] Magnesium Level Phosphorus Level Renal Function Panel [...] mg, 1 mL, IV Push, q2min, PRN [place] 5 mg-325 mg oral tablet, 1 tabs, [...] Dilan Chew DO 02/10/20 23:31 EDT Normal [facility] Operative Reporton 0 Operative Report Indication for Surge ry Patient is an 84-year-old with a left hip fracture. Treatment options were discussed with her as well as risks and benefits and she elected to proceed with surgery. Preoperative Diagnosis Left hip intertrochanteric fracture Postoperative Diagnosis Left hip intertrochanteric fracture Operation Left hip intramedullary nail Surgeon(s) Nikki Weight Reducing Technician None Anesthesia Spinal Estimated Blood Loss 75 [...] Chele Jordan MD 02/10/20 13:55 EDT Normal [facility] Orthopedic Consultationon Orthopedic Consultation Reason for Consultation Left hip fracture History of Present Illness Patient was walking yesterday when she lost her balance and fell on to her left hip with pain and inability to bear weight. She presented to [facility] ER where xrays revealed a left hip fracture. Patient was transferred to [facility] for treatment of this injury. Patient [...] capsule, 0.25 mcg, 1 caps, Oral, Mo//Fr hydrALAZINE 25 mg oral tablet, 25 mg, [...] Chele Jordan MD 02/10/20 12:20 EDT Normal [facility] Pharmacy Progress Noteon Pharmacy Progress Note Pharmacy Progress Note Pharmacy consulted to dose prophylactic Lovenox by Dr. Jordan, to start 02/10 @ 1300 per consult. Based on patient's est Clcr of 18.19 ml/min, entered Lovenox 30 mg subcutaneous q24hr starting 02/10 @ 1300. Thank you. 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 Electronically signed by Karen Uriarte 02/10/20 18:33 EDT Correction, per hospitalist note today, patient is NOT on dialysis. Electronically signed by Karen Uriarte 02/10/20 18:35 EDT Normal [facility] Phosphoruson 02-10-2020 Phosphate [Mass/Vol] 3.8 mg/dL Normal 2.5-4.6 [facility] Comment on above: Performed By: #### P HOS #### [place] [address] Progress Note - [employer] Progress Note - [...] mg, 1 mL, IV Push, q2min, PRN [place] 5 mg-325 mg oral tablet, 1 tabs, [...] she is not - Reported creatinine at [facility] was 2.42, creatinine significantly improved today [...] by Sneha Martell 02/10/20 16:09 EDT Normal [facility] APTTon 02-09-2020 aPTT Coag (Bld) [Time] 27.1 s [facility], [place] CBC Auto Differentialon 01-25 Basophils (Bld) [#/Vol] 10*3/uL [facility], [place] Basophils/100 WBC (Bld) 0 % 0 - 2 % [place], [place] Differential Type NOT REPORTED [place] Eosinophils (Bld) [#/Vol] 0.10 10*3/uL [facility], [place] Eosinophils/100 WBC (Bld) 1 % 1 - 4 % [place] Erythrocyte distribution width (RBC) [Ratio] 14.0 % 11.8 - 14.4 % [place] Hematocrit (Bld) [Volume fraction] 41.9 % 36.3 - 47.1 % [place] Hemoglobin (Bld) [Mass/Vol] 13.0 g/dL 11.9 - 15.1 g/dL [place] Immature granulocytes (Bld) [#/Vol] 0 % 0 [place] Immature granulocytes (Bld) [#/Vol] 10*3/uL [place] Lymphocytes (Bld) [#/Vol] 2.13 10*3/uL [place] Lymphocytes/100 WBC (Bld) 26 % 24 - 43 % [place] MCH (RBC) [Entitic mass] 30.1 pg 25. 2 - 33.5 pg [place] MCHC (RBC) [Mass/Vol] 31.0 g/dL 28.4 - 34.8 g/dL [place] MCV (RBC) [Entitic vol] 97.0 fL 82.6 - 102.9 fL [place] Monocytes (Bld) [#/Vol] 0.78 10*3/uL [place] Monocytes/100 WBC (Bld) 10 % 3 - 12 % [place] Platelet mean volume (Bld) [Entitic vol] 10.7 fL 8.1 - 13.5 fL [place] Platelets (Bld) [#/Vol] NOT REPORTED [place] Platelets (Bld) [#/Vol] 197 10*3/uL [place] RBC (Bld) [#/Vol] 4.32 10*6/uL 3.95 - 5.1 1 m/uL [place] RBC morphology finding Nom (Bld) NOT REPORTED [place] Segmented neutrophils/100 WBC (Bld) 63 % 36 - 65 % [place] Segs Absolute 5.15 [place] WBC (Bld) [#/Vol] 0.0 10*3/uL 0.0 per 10 0 WBC [place] WBC (Bld) [#/Vol] 8.2 10*3/uL [place] WBC Morphology NOT REPORTED [place] CT CERVICAL SPINE WO CONTRAS Ton 02-09-2020 [place], Mhpn Incoming Radiant Results From [employer] - 02/09/2020 12:08 PM EDT EXAMINATION: CT [...] with left bony foraminal narrowing at C5-6. [place] EXAMINATION: CT OF T HE CERVICAL [...] The lung apices are without acute process. [place] No acute fracture or malalignment of the cervical spine. Multilevel degenerative disc disease with associated uncovertebral and facet hypertrophy with left bony foraminal narrowing at C5-6. [place] CT Head WO Contraston 2019 [place], pn Incoming Radiant Results From [employer] - 02/09/2020 11:56 AM EDT EXAMINATION: CT [...] acute CT abnormality identified in the brain. [place] EXAMINATION: CT OF T HE HEAD [...] left posterosuperior scalp injury. No underlying fracture. [place] Left posterosuperior scalp injury without underlying fracture. No acute CT abnormality identified in the brain. [place] Comprehensive Metabolic Pane l w/ Reflex to MGon 02-09-2020 Albumin [Mass/Vol] 4.2 g/dL 3.5 - 5.2 g/dL [place] Albumin/Globulin [Mass ratio] 1.6 {ratio} [place] ALP [Catalytic activity/Vol] 97 U/L 35 - 104 U/L [place] ALT [Catalytic activity/Vol] 16 U/L 5 - 33 U/L [place] Anion gap [Moles/Vol] 16 mmol/L 9 - 17 mmol/L [place] AST [Catalytic activity/Vol] 19 U/L <32 [place] Bilirubin Ql (U) 0.38 mg/dL 0.3 - 1.2 mg/dL [place] Bun/Cre Ratio 18 [place] Calcium [Mass/Vol] 9.3 mg/dL 8.6 - 10. 4 mg/dL [place] Chloride [Moles/Vol] 102 mmol/L 98 - 10 7 mmol/L [place] CO2 [Moles/Vol] 23 mmol/L 20 - 31 mmol/L [place] Creatinine [Mass/Vol] 2.42 mg/dL High 0.5 - 0.9 mg/dL [place] GFR 23 mL/min Low >60 [place] GFR Non- 19 mL/min Low >60 [place] Glucose [Mass/Vol] 132 mg/dL High 70 - 99 mg/dL [place] Interpretation and review of laboratory results Abnormal [place] Potassium [Moles/Vol] 4.5 mmol/L 3.7 - 5.3 mmol/L [place] Protein [Mass/Vol] 6.8 g/dL 6.4 - 8.3 g/dL [place] Sodium [Moles/Vol] 141 mmol/L 135 - 144 mmol/L [place] Urea nitrogen [Mass/Vol] 43 mg/dL High 8 - 23 mg/dL [place] History and Physicalon 02-08 History and Physical Chief Complaint Fall with left hip fracture. History of Present Illness Patient is a 84-year-old female being managed from [place] emergency emergency department for left intertrochanteric hip [...] and oriented, well nourished, no acute distress. [place] Eye: PERRL, EOMI, normal conjunctiva. HENT: Normocephalic, [...] every 4 hours as needed for nausea. guest services assistant consult for discharge planning. 2. Fall See #1. 3. Laceration of head Scabbed. 4. Hypertension Continue hydrochlorothiazide and verapamil. 5. ESRD on dialysis Creatine in [place] was 2.42 Consult nephrology in the morning. [...] by Anshul Jack 02/09/20 18:20 EDT Normal [facility] Metabolic Panelon 02-09-2020 GFR/1.73 sq M predicted among non-blacks MDRD (S/P/Bld) [Vol rate/Area] [place] Comment on above: Average GFR for 70 o r more years old: 75 mL/min/1.73sq m Chronic Kidney Disease: <60 mL/min/1.73sq m Kidney failure: <15 mL/min/1.73sq m eGFR calculated using average adult body mass. Additional eGFR calculator available at: http://www.Velocomp.BrieFix/multiple_crcl_2012.htm Stage 1: Some kidney damage normal GFR [...] by Fer Bautista 02/09/20 22:53 EDT Normal [facility] Protime-INRon 02-09-2020 INR Coag (PPP) [Relative time] 1.0 {INR} [facility] (PPP[facility] [Time] 10.7 s [facility] CHEST PORTABLEon 02-09-20 20 [place], Mhpn Incoming Radiant Results From [employer] - 02/09/2020 11:50 AM EDT EXAMINATION: ONE XRAY VIEW OF THE CHEST 02/09/2020 11:43 am COMPARISON: 09/27/2017 HISTORY: ORDERING SYSTEM PROVIDED HISTORY: for admission TECHNOLOGIST PROVIDED HISTORY: for admission FINDINGS: The lungs are without acute focal process. There is no effusion or pneumothorax. The cardiomediastinal silhouette is stable. The osseous structures are stable. IMPRESSION: No acute process. [facility] [place] No acute process. [facility] [place] EXAMINATION: ONE XRA Y VIEW OF THE CHEST 02/09/2020 11:43 am COMPARISON: 09/27/2017 HISTORY: ORDERING SYSTEM PROVIDED HISTORY: for admission TECHNOLOGIST PROVIDED HISTORY: for admission FINDINGS: The lungs are without acute focal process. There is no effusion or pneumothorax. The cardiomediastinal silhouette is stable. The osseous structures are stable. [facility] [place] XR HIP 2-3 VW W PELVIS LEFTo n 02-09-2020 Intertrochanteric le ft hip fracture. [facility] [place], Mhpn Incoming Radiant Results From [employer] - 02/09/2020 3:31 PM EDT EXAMINATION: ONE [...] vascular calcifications. IMPRESSION: Intertrochanteric left hip fracture. [place] EXAMINATION: ONE XRA Y VIEW OF [...] within the acetabulum. There are vascular calcifications. [place] CBCon 02-02-2020 Erythrocyte distribution width (RBC) [Ratio] 14.1 % 11.8 - 14.4 % [place] Hematocrit (Bld) [Volume fraction] 44.3 % 36.3 - 47.1 % [place] Hemoglobin (Bld) [Mass/Vol] 13.4 g/dL 11.9 - 15.1 g/dL [place] MCH (RBC) [Entitic mass] 30.2 pg 25. 2 - 33.5 pg [place] MCHC (RBC) [Mass/Vol] 30.2 g/dL 28.4 - 34.8 g/dL [place] MCV (RBC) [Entitic vol] 100.0 fL 82.6 - 102.9 fL [place] Platelet mean volume (Bld) [Entitic vol] 10.6 fL 8.1 - 13.5 fL [place] Platelets (Bld) [#/Vol] 231 10*3/uL [place] RBC (Bld) [#/Vol] 4.43 10*6/uL 3.95 - 5.1 1 m/uL [place] WBC (Bld) [#/Vol] 8.8 10*3/uL [place] WBC (Bld) [#/Vol] 0.0 10*3/uL 0.0 per 10 0 WBC [place] Creatinine, Random Urineon 0 02-02-2020 Creatinine, Ur 148.3 mg/dL 28 - 217 mg/dL [place] Magnesiumon 02-02-2020 Magnesium [Mass/Vol] 2.0 mg/dL 1.6 - 2 .6 mg/dL [place] Metabolic Panelon 02-02-2020 GFR/1.73 sq M predicted among non-blacks MDRD (S/P/Bld) [Vol rate/Area] [place] Comment on above: Stage 1: Some [...] body mass. Additional eGFR calculator available at: http://www.SmartAsset/multiple_crcl_2012.htm PTH, Intacton 02-02-2020 Interpretation and review of laboratory results Abnormal [place] Pth Intact 103.6 pg/mL High 15 - 65 pg/mL [place] Comment on above: SAMPLES FROM PATIENT S ROUTINELY RECEIVING HIGH DOSE BIOTIN THERAPY MAY SHOW FALSELY DEPRESSED RESULTS. ADDITIONAL INFORMATION MAY BE REQUIRED FOR DIAGNOSIS. Protein, urine, randomon Protein (U) [Mass/Vol] 21 mg/dL [place], [place] Comment on above: No normal range esta blished. Renal Function Panelon 02-01 Albumin [Mass/Vol] 4.6 g/dL 3.5 - 5.2 g/dL [place] Anion gap [Moles/Vol] 15 mmol/L 9 - 17 mmol/L [place] Bun/Cre Ratio 17 [place] Calcium [Mass/Vol] 9.9 mg/dL 8.6 - 10. 4 mg/dL [place] Chloride [Moles/Vol] 102 mmol/L 98 - 10 7 mmol/L [place] CO2 [Moles/Vol] 23 mmol/L 20 - 31 mmol/L [place] Creatinine [Mass/Vol] 1.69 mg/dL High 0.5 - 0.9 mg/dL [place] GFR 35 mL/min Low >60 [place] GFR Non- 29 mL/min Low >60 [place] Glucose [Mass/Vol] 120 mg/dL High 70 - 99 mg/dL [place] Interpretation and review of laboratory results Abnormal [place] Phosphate [Mass/Vol] 2.7 mg/dL 2.6 - 4 .5 mg/dL [place] Potassium [Moles/Vol] 4.0 mmol/L 3.7 - 5.3 mmol/L [place] Sodium [Moles/Vol] 140 mmol/L 135 - 144 mmol/L [place] Urea nitrogen [Mass/Vol] 28 mg/dL High 8 - 23 mg/dL [place] Uric Acidon 02-02-2020 Urate [Mass/Vol] 5.5 mg/dL 2.4 - 5.7 mg/dL [place] Urinalysis with Microscopico n 02-02-2020 Amorphous, UA NOT REPORTED None [place] Bacteria, UA 3+ Abnormal None [place] Bilirubin Urine Negative NEGATIVE [place] Casts UA NOT REPORTED /LPF [place] Color, UA YELLOW YELLOW [place] Crystals, UA NOT REPORTED None /HPF [place] Epithelial Cells UA 10 TO 20 [place] Glucose, Ur Negative NEGATIVE [place] Interpretation and review of laboratory results Abnormal [place] Ketones Ql (U) Negative NEGATIVE [place] Leukocyte esterase Test strip Ql (U) Negative NEGATIVE [place] Mucus, UA NOT REPORTED None [place] Nitrite, Urine Positive Abnormal NEGATIVE [place] Other Observations UA NOT REPORTED NOT REQ. [place] pH, UA 5.5 [place] Protein (U) [Mass/Vol] Negative NEGATIVE [place] RBC (U) [#/Vol] None [facility] [employer] [place], [place] Renal Epithelial, UA NOT REPORTED 0 /HPF [facility] [employer] [place] Specific [place], UA 1.020 [facility] [employer], [place] Trichomonas, UA NOT REPORTED None [facility] Turbidity UA CLEAR CLEAR [facility] [employer] [place] Urinalysis Comments NOT REPORTED [facility] Urine Hgb Negative NEGATIVE [facility] [employer] [place] Urobilinogen, Urine Normal Normal [facility] [employer] [place] WBC, UA 2 TO 5 [facility] [employer] [place] Yeast, UA NOT REPORTED None [facility] [place] - [facility] [employer] [place] CBCon 10-30-2019 Erythrocyte distribution width (RBC) [Ratio] 12.9 % 11.8 - 14.4 % [employer] Phone: Hematocrit (Bld) [Volume fraction] 42.8 % 36.3 - 47.1 % [employer] Phone: Hemoglobin (Bld) [Mass/Vol] 12.9 g/dL 11.9 - 15.1 g/dL [employer] Phone: MCH (RBC) [Entitic mass] 30.8 pg 25. 2 - 33.5 pg [employer] Phone: MCHC (RBC) [Mass/Vol] 30.1 g/dL 28.4 - 34.8 g/dL [employer] Phone: MCV (RBC) [Entitic vol] 102.1 fL 82.6 - 102.9 fL [employer] Phone: Platelet mean volume (Bld) [Entitic vol] 11.0 fL 8.1 - 13.5 fL [employer] Phone: Platelets (Bld) [#/Vol] 210 10*3/uL [employer] Phone: RBC (Bld) [#/Vol] 4.19 10*6/uL 3.95 - 5.1 1 m/uL [employer] Phone: WBC (Bld) [#/Vol] 7.9 10*3/uL [employer] Phone: WBC (Bld) [#/Vol] 0.0 10*3/uL 0.0 per 10 0 WBC [employer] Phone: Creatinine, Random Urineon 0 10-30-2019 Creatinine, Ur 173.2 mg/dL 28 - 217 mg/dL [employer] Phone: Magnesiumon 10-30-2019 Magnesium [Mass/Vol] 2.2 mg/dL 1.6 - 2 .6 mg/dL [employer] Phone: Metabolic Panelon 10-30-2019 GFR/1.73 sq M predicted among non-blacks MDRD (S/P/Bld) [Vol rate/Area] [employer] Phone: Comment on above: Average GFR for 70 o r more years old: 75 mL/min/1.73sq m Chronic Kidney Disease: <60 mL/min/1.73sq m Kidney failure: <15 mL/min/1.73sq m eGFR calculated using average adult body mass. Additional eGFR calculator available at: http://www.SmartAsset/multiple_crcl_2012.htm Stage 1: Some kidney damage normal GFR Stage 2: Mild kidney damage GFR 60-89 Stage 3: Moderate kidney damage GFR 30-59 Stage 4: Severe kidney damage GFR 15-29 Stage 5: Severe kidney damage GFR <15 ESRD - chronic treatment by dialysis or transplant PTH, Int[place]on 10-30-2019 Interpretation and review of laboratory results Abnormal [employer] Phone: Pth Intact 121.6 pg/mL High 15 - 65 pg/mL [employer] Phone: Comment on above: SAMPLES FROM PATIENT S ROUTINELY RECEIVING HIGH DOSE BIOTIN THERAPY MAY SHOW FALSELY DEPRESSED RESULTS. ADDITIONAL INFORMATION MAY BE REQUIRED FOR DIAGNOSIS. Protein, urine, randomon Protein (U) [Mass/Vol] 22 mg/dL [facility] Phone: Comment on above: No normal range estrenuka blished. Renal Function Panelon 10-30 Albumin [Mass/Vol] 4.4 g/dL 3.5 - 5.2 g/dL [employer] Phone: Anion gap [Moles/Vol] 13 mmol/L 9 - 17 mmol/L [employer] Phone: Bun/Cre Ratio 17 [employer] Phone: Calcium [Mass/Vol] 9.6 mg/dL 8.6 - 10. 4 mg/dL [employer] Phone: Chloride [Moles/Vol] 105 mmol/L 98 - 10 7 mmol/L [employer] Phone: CO2 [Moles/Vol] 25 mmol/L 20 - 31 mmol/L [employer] Phone: Creatinine [Mass/Vol] 1.72 mg/dL High 0.5 - 0.9 mg/dL [employer] Phone: GFR 34 mL/min Low >60 [email or web address] Phone: GFR Non- 28 mL/min Low >60 [employer] Phone: Glucose [Mass/Vol] 122 mg/dL High 70 - 99 mg/dL [employer] Phone: Interpretation and review of laboratory results Abnormal [employer] Phone: Phosphate [Mass/Vol] 3.5 mg/dL 2.6 - 4 .5 mg/dL [employer] Phone: Potassium [Moles/Vol] 4.7 mmol/L 3.7 - 5.3 mmol/L [employer] Phone: Sodium [Moles/Vol] 143 mmol/L 135 - 144 mmol/L [employer] Phone: Urea nitrogen [Mass/Vol] 30 mg/dL High 8 - 23 mg/dL [employer] Phone: Uric Acidon 10-30-2019 Urate [Mass/Vol] 5.2 mg/dL 2.4 - 5.7 mg/dL [employer] Phone: Urinalysis with Microscopico n 10-30-2019 Amorphous, UA NOT REPORTED None [employer] Phone: Bacteria, UA 3+ Abnormal None [employer] Phone: Bilirubin Urine Negative NEGATIVE [employer] Phone: Casts UA NOT REPORTED /LPF [employer] Phone: Color, UA YELLOW YELLOW [employer] Phone: Crystals UA NOT REPORTED None /HPF [employer] Phone: Epithelial Cells UA 10 TO 20 [employer] Phone: Glucose, Ur Negative NEGATIVE [employer] Phone: Interpretation and review of laboratory results Abnormal [employer] Phone: Ketones Ql (U) Negative NEGATIVE [employer] Phone: Leukocyte esterase Test strip Ql (U) TRACE Abnormal NEGATIVE [employer] Phone: Mucus, UA NOT REPORTED None [employer] Phone: Nitrite, Urine Negative NEGATIVE [employer] Phone: Other Observations UA NOT REPORTED NOT REQ. [facility] Work Phone: pH, UA 5.0 [employer] Work Phone: Protein (U) [Mass/Vol] Negative NEGATIVE [facility] Work Phone: RBC (U) [#/Vol] 0 TO 2 [employer] Work Phone: Renal Epithelial, Urine NOT REPORTED 0 /HPF [employer] Work Phone: Specific [place], UA 1.020 [employer] Work Phone: Trichomonas, UA NOT REPORTED None [place] [facility] Work Phone: Turbidity UA SLIGHTLY CLOUDY Abnormal CLEAR [facility] Work Phone: Urinalysis Comments NOT REPORTED [facility] [employer] Work Phone: Urine Hgb Negative NEGATIVE [facility] Work Phone: Urobilinogen, Urine Normal Normal [facility]: WBC, UA 5 TO 10 [facility]: Yeast, UA NOT REPORTED None [facility]: - [facility] Work Phone: CBCon 08-11-2019 Erythrocyte distribution width (RBC) [Ratio] 13.8 % 11.8 - 14.4 % [place] Hematocrit (Bld) [Volume fraction] 40.5 % 36.3 - 47.1 % [place] Hemoglobin (Bld) [Mass/Vol] 12.5 g/dL 11.9 - 15.1 g/dL [place] MCH (RBC) [Entitic mass] 30.9 pg 25. 2 - 33.5 pg [place] MCHC (RBC) [Mass/Vol] 30.9 g/dL 28.4 - 34.8 g/dL [place] MCV (RBC) [Entitic vol] 100.2 fL 82.6 - 102.9 fL [place] Platelet mean volume (Bld) [Entitic vol] 10.5 fL 8.1 - 13.5 fL [place] Platelets (Bld) [#/Vol] 245 10*3/uL [place] RBC (Bld) [#/Vol] 4.04 10*6/uL 3.95 - 5.1 1 m/uL [place] WBC (Bld) [#/Vol] 7.1 10*3/uL [place] WBC (Bld) [#/Vol] 0.0 10*3/uL 0.0 per 10 0 WBC [place] Creatinine Clearanceon 08-11 Creatinine [Mass/Vol] 54.7 mg/dL 28 - 2 17 mg/dL [place] Creatinine [Mass/Vol] 1.8 mg/dL High 0.5 - 0.9 mg/dL [place] Creatinine Clearance 25.8 [place] Interpretation and review of laboratory results Abnormal [place] Length Of Collection 24 h [place] Patient Height 155 cm [place] Volume 1175 mL [place] Creatinine, Random Urineon 1 10-11-2018 Creatinine, Ur 18.5 mg/dL Low 28 - 217 mg/dL [place] Interpretation and review of laboratory results Abnormal [place] Magnesiumon 08-11-2019 Magnesium [Mass/Vol] 1.9 mg/dL 1.6 - 2 .6 mg/dL [place] Metabolic Panelon 08-11-2019 GFR/1.73 sq M predicted among non-blacks MDRD (S/P/Bld) [Vol rate/Area] [place] Comment on above: Average GFR for 70 o r more years old: 75 mL/min/1.73sq m Chronic Kidney Disease: <60 mL/min/1.73sq m Kidney failure: <15 mL/min/1.73sq m eGFR calculated using average adult body mass. Additional eGFR calculator available at: http://www.Velocomp.BrieFix/multiple_crcl_2012.htm Stage 1: Some kidney damage normal GFR Stage 2: Mild kidney damage GFR 60-89 Stage 3: Moderate kidney damage GFR 30-59 Stage 4: Severe kidney damage GFR 15-29 Stage 5: Severe kidney damage GFR <15 ESRD - chronic treatment by dialysis or transplant PTH, Intacton 08-11-2019 Interpretation and review of laboratory results Abnormal [place] Pth Intact 99.15 pg/mL High 15 - 65 pg/mL [place] Comment on above: SAMPLES FROM PATIENT S ROUTINELY RECEIVING HIGH DOSE BIOTIN THERAPY MAY SHOW FALSELY DEPRESSED RESULTS. ADDITIONAL INFORMATION MAY BE REQUIRED FOR DIAGNOSIS. Protein, urine, randomon Protein (U) [Mass/Vol] mg/dL mg/dL [place] Comment on above: No normal range esta blished. Protein, urine, timedon 07-28 Hours Collected 24 h [place] Protein (U) [Mass/Vol] 5 mg/dL [place] Volume 1175 mL [place] Comment on above: CORRECTED ON 08/11 A T 1745: PREVIOUSLY REPORTED 1175 ML Renal Function Panelon 08-11 Albumin [Mass/Vol] 4.3 g/dL 3.5 - 5.2 g/dL [place] Anion gap [Moles/Vol] 15 mmol/L 9 - 17 mmol/L [place] Bun/Cre Ratio 16 [place] Calcium [Mass/Vol] 9.2 mg/dL 8.6 - 10. 4 mg/dL [place] Chloride [Moles/Vol] 100 mmol/L 98 - 10 7 mmol/L [place] CO2 [Moles/Vol] 22 mmol/L 20 - 31 mmol/L [place] Creatinine [Mass/Vol] 1.8 mg/dL High 0.5 - 0.9 mg/dL [place] GFR 33 mL/min Low >60 [place] GFR Non- 27 mL/min Low >60 [place] Glucose [Mass/Vol] 110 mg/dL High 70 - 99 mg/dL [place] Interpretation and review of laboratory results Abnormal [place] Phosphate [Mass/Vol] 2.8 mg/dL 2.6 - 4 .5 mg/dL [place] Potassium [Moles/Vol] 4.1 mmol/L 3.7 - 5.3 mmol/L [place] Sodium [Moles/Vol] 137 mmol/L 135 - 144 mmol/L [place] Urea nitrogen [Mass/Vol] 29 mg/dL High 8 - 23 mg/dL [place] TSH without Reflexon 019 TSH Qn 3.22 m[IU]/L [place] US RENAL COMPLETEon 08-11-20 19 1. [...] CT for confirmation of the above findings. [place] EXAMINATION: RETROPERITONEAL ULTRASOUND OF THE KIDNEYS AND URINARY BLADDER 08/11/2019 COMPARISON: None HISTORY: ORDERING SYSTEM PROVIDED HISTORY: Chronic kidney disease, stage IV (severe) ([facility]) FINDINGS: Kidneys: Suboptimal evaluation due to patient [...] the bladder. No significant post void residual. [place], Mhpn Incoming Radiant Results From [employer] - 08/11/2019 12:53 PM EST EXAMINATION: RETROPERITONEAL ULTRASOUND OF THE KIDNEYS AND URINARY BLADDER 08/11/2019 COMPARISON: None HISTORY: ORDERING SYSTEM PROVIDED HISTORY: Chronic kidney disease, stage IV (severe) ([facility]) FINDINGS: Kidneys: Suboptimal evaluation due to patient [...] CT for confirmation of the above findings. [place] Uric Acidon 08-11-2019 Urate [Mass/Vol] 5.4 mg/dL 2.4 - 5.7 mg/dL [place] Urinalysison 08-11-2019 Protein (U) [Mass/Vol] NOT REPORTED mg/X h [place] Urinalysis with Microscopico n 08-11-2019 Amorphous, UA NOT REPORTED None [place] Bacteria, UA TRACE Abnormal None [place] Bilirubin Urine Negative NEGATIVE [place] Casts UA NOT REPORTED /LPF [place] Color, UA YELLOW YELLOW [place] Crystals UA NOT REPORTED None /HPF [place] Epithelial Cells UA 0 TO 2 [place] Glucose, Ur Negative NEGATIVE [place] Interpretation and review of laboratory results Abnormal [place] Ketones Ql (U) Negative NEGATIVE [place] Leukocyte esterase Test strip Ql (U) Negative NEGATIVE [place] Mucus, UA NOT REPORTED None [place] Nitrite, Urine Negative NEGATIVE [place] Other Observations UA NOT REPORTED NOT REQ. [place] pH, UA 5.5 [place] Protein (U) [Mass/Vol] Negative NEGATIVE [place] RBC (U) [#/Vol] 0 TO 2 [place] Renal Epithelial, Urine NOT REPORTED 0 /HPF [place] Specific [place], UA <1.005 Low [place] Trichomonas, UA NOT REPORTED None [place] Turbidity UA CLEAR CLEAR [place] Urinalysis Comments NOT REPORTED [facility] Urine Hgb Negative NEGATIVE [facility] Urobilinogen, Urine Normal Normal [facility], [place] WBC, UA 0 TO 2 [facility], [place] Yeast, UA NOT REPORTED None [facility], [place] Vitamin B12 & Folateon 08-11 Cobalamin (Vitamin B12) [Mass/Vol] 391 pg/mL 232 - 1245 pg/mL [place] Folate 7.7 ng/mL >4.8 [place] Vital Signs Date Time Vital Sign Value Performing Clinician Facility 01-19-2024 09:43-0400 Body height 152.4 cm [facility] 01-19-2024 09:43-0400 Body mass index (BMI) [Ratio] 25.4 kg/m2 [facility] 01-19-2024 09:43-0400 Body temperature 97.9 [degF] [facility] 01-19-2024 09:43-0400 Body weight 58.96 kg [facility] 01-19-2024 09:43-0400 Diastolic blood pressure 75 mm[Hg] [facility] 01-19-2024 09:43-0400 Heart rate 74 /min [facility] 01-19-2024 09:43-0400 Systolic blood pressure 148 mm[Hg] [facility] 12-06-2023 14:21-0400 Diastolic blood pressure 88 mm[Hg] Mark O'Wiley PA-C Work Phone: [facility] 12-06-2023 14:21-0400 Heart rate 60 /min Mark O'Wiley PA-C Work Phone: [facility] 12-06-2023 14:21-0400 Systolic blood pressure 155 mm[Hg] Mark O'Wiley PA-C Work Phone: [facility] 09-09-2023 13:00-0500 Diastolic blood pressure 88 mm[Hg] Brina Cordero Other [employer] Other 09-09-2023 13:00-0500 Respiratory rate 12 /min Brina Cordero Other [employer] [facility] [employer] Other 09-09-2023 13:00-0500 Systolic blood pressure 132 mm[Hg] Brina Cordero Other [employer] [facility] [employer] Other 08-31-2023 22:45-0500 Diastolic blood pressure 94 mm[Hg] MD Destiny Irwin Work Phone: [facility] 08-31-2023 22:45-0500 Heart rate 89 /min MD Destiny Irwin Work Phone: [facility] 08-31-2023 22:45-0500 Respiratory rate 18 /min MD Destiny Irwin Work Phone: [facility] 08-31-2023 22:45-0500 SaO2% (BldA) [Mass fraction] 97 % MD Destiny Irwin Work Phone: [facility] 08-31-2023 22:45-0500 Systolic blood pressure 165 mm[Hg] MD Destiny Irwin Work Phone: [facility] 08-31-2023 18:28-0500 Body height 154.94 cm MD Destiny Irwin Work Phone: [facility] 08-31-2023 18:28-0500 Body weight 59.87 kg MD Destiny Irwin Work Phone: [facility] 08-31-2023 18:27-0500 Body temperature 98.2 [degF] MD Destiny Irwin Work Phone: [facility] 06-11-2023 13:00-0400 Diastolic blood pressure 72 mm[Hg] Brina Cordero Other [facility] [employer] Other 06-11-2023 13:00-0400 Respiratory rate 12 /min Brina Cordero Other [facility] [facility] [employer] Other 06-11-2023 13:00-0400 Systolic blood pressure 178 mm[Hg] Brina Cordero Other [employer] Other 09-12-2020 11:04-0500 BP Diastolic 63 mm[Hg] [facility] [place] [facility] [place] Comment on above: 2nd reading 09-12-2020 11:04-0500 BP Systolic 139 mm[Hg] [facility] [place] Comment on above: 2nd reading 09-12-2020 11:04-0500 Pulse (Heart Rate) 65 /min [facility] [place] 09-12-2020 11:02-0500 Body Temperature 96.1 [degF] [facility] [place] 09-12-2020 11:02-0500 Respiratory Rate 20 /min [facility] [place] 08-15-2020 10:48-0500 Body Temperature 96.69 [degF] [facility] [place] 08-15-2020 10:48-0500 BP Diastolic 90 mm[Hg] [facility] [place] 08-15-2020 10:48-0500 BP Systolic 147 mm[Hg] [facility] [place] 08-15-2020 10:48-0500 Pulse (Heart Rate) 69 /min [facility] [place] 08-15-2020 10:48-0500 Respiratory Rate 22 /min [facility] [place] 07-18-2020 10:55-0400 Body Temperature 97.81 [degF] [facility] [place] 07-18-2020 10:55-0400 BP Diastolic 71 mm[Hg] [facility] [place] 07-18-2020 10:55-0400 BP Systolic 133 mm[Hg] [facility] [place] 07-18-2020 10:55-0400 Pulse (Heart Rate) 79 /min [facility] [place] 07-18-2020 10:55-0400 Respiratory Rate 16 /min [facility] [place] 06-27-2020 11:04-0400 BP Diastolic 71 mm[Hg] [facility] [place] 06-27-2020 11:04-0400 BP Systolic 123 mm[Hg] [facility] [place] 06-27-2020 11:04-0400 Pulse (Heart Rate) 84 /min [facility] [place] 06-27-2020 11:04-0400 Respiratory Rate 22 /min [facility] [place] 05-30-2020 13:10-0400 Body Temperature 97.59 [degF] [facility] [place] 05-30-2020 13:10-0400 BP Diastolic 86 mm[Hg] [facility] [place] 05-30-2020 13:10-0400 BP Systolic 136 mm[Hg] [facility] [place] 05-30-2020 13:10-0400 Pulse (Heart Rate) 108 /min [facility] [place] 05-30-2020 13:10-0400 Respiratory Rate 20 /min [facility] [place] 05-15-2020 14:09-0400 Pulse Oximetry 97 % Chele Simon [facility] [place] , [place] 05-15-2020 08:52-0400 Body Temperature 98.2 [degF] [facility] [place] 05-15-2020 08:52-0400 BP Diastolic 58 mm[Hg] [facility] [place] 05-15-2020 08:52-0400 BP Systolic 118 mm[Hg] [facility] [place] 05-15-2020 08:52-0400 Pulse (Heart Rate) 68 /min Chele Simon [facility] 05-15-2020 08:52-0400 Respiratory Rate 16 /min [facility] [place] 05-10-2020 10:40-0400 BMI (Body Mass Index) 27.21 kg/m2 hCele Simon [facility] [place], [place] 05-10-2020 10:40-0400 Body weight 69.67 kg Chele Simon [facility] , [place] 05-10-2020 10:40-0400 Height 160 cm Chele Lagos [facility] [place] , [place] 04-06-2020 07:53-0400 Body Temperature 97 [degF] Kian Simon [facility] [place] 04-06-2020 07:53-0400 BP Diastolic 80 mm[Hg] Kian Ernst [facility] [place] 04-06-2020 07:53-0400 BP Systolic 120 mm[Hg] Kian Ernst [facility] [place] 04-06-2020 07:53-0400 Pulse (Heart Rate) 66 /min Kian Simon [facility] 04-06-2020 07:53-0400 Pulse Oximetry 96 % Kian Ernst [facility], [place] 04-06-2020 07:53-0400 Respiratory Rate 16 /min Kian Simon [facility] [place] 04-06-2020 04:30-0400 BMI (Body Mass Index) 30.86 kg/m2 Kian Ernst [facility] [place], [place] 04-06-2020 04:30-0400 Body weight 71.67 kg Kian Ernst [facility], [place] 04-03-2020 07:32-0400 Height 152.4 cm [facility] [place] 03-23-2020 17:22-0400 BP Diastolic 82 mm[Hg] Forest Baer [facility] [place] , [place] 03-23-2020 17:22-0400 BP Systolic 137 mm[Hg] [facility] [place] 03-23-2020 17:22-0400 Pulse Oximetry 99 % [facility] [place] 03-23-2020 15:09-0400 Body Temperature 98.4 [degF] [facility] [place] 03-23-2020 15:09-0400 Pulse (Heart Rate) 76 /min Forest Baer [facility] [place] 03-23-2020 15:07-0400 BMI (Body Mass Index) 31.05 kg/m2 [facility] [place] 03-23-2020 15:07-0400 Body weight 72.12 kg Forest Ba[place] 03-23-2020 15:07-0400 Height 152.4 cm Forest [place] 03-23-2020 15:07-0400 Respiratory Rate 18 /min Forest Simon [facility], [place] 02-09-2020 15:52-0400 BP Diastolic 50 mm[Hg] [facility] [place] 02-09-2020 15:52-0400 BP Systolic 136 mm[Hg] [place] 02-09-2020 15:52-0400 Pulse (Heart Rate) 54 /min [facility] [place] 02-09-2020 15:52-0400 Pulse Oximetry 98 % [place] 02-09-2020 15:52-0400 Respiratory Rate 18 /min [facility] [place], [place] 02-09-2020 11:10-0400 Body Temperature 98.6 [degF] [facility] [place] 02-09-2020 11:10-0400 Body weight 68.04 kg [facility] [place] 08-11-2019 15:08-0500 Body weight 67 kg [place] Encounters Encounter Date Encounter Type Care Provider Facility Start: 02-28-2024 End: 02-28-2024 ambulatory KODY A FACUNDO Not Available Start: 02-17-2024 End: 02-17-2024 ambulatory KODY A FACUNDO Not Available Start: 02-17-2024 Telephone encounter Moni bell Comment on above: Results Start: 01-31-2024 Telephone encounter Mark bates PA-C Work Phone: Urology Comment on above: Appointment Start: 01-28-2024 End: 01-28-2024 ambulatory KODY A FACUNDO Not Available Start: 01-19-2024 End: 01-19-2024 ambulatory [facility] Work Phone: Start: 01-19-2024 End: 01-19-2024 Patient encounter procedure [facility] Work Phone: Start: 01-10-2024 End: 01-10-2024 ambulatory KODY A FACUNDO Not Available Start: 01-10-2024 Non-patient / Non-visit [facility] Work Phone: Start: 01-09-2024 Non-patient / Non-visit [facility] Work Phone: Start: 01-04-2024 Telephone encounter Mark O'Do nohue PA-C Work Phone: Urology Start: 01-04-2024 Non-patient / Non-visit [facility] Work Phone: Start: 12-29-2023 End: 12-29-2023 ambulatory KODY A FACUNDO Not Available Start: 12-21-2023 Non-patient / Non-visit [facility] Work Phone: Start: 12-08-2023 Telephone encounter Mark O'Do nohue PA-C Work Phone: Urology Comment on above: Results Start: 12-06-2023 End: 12-06-2023 Patient encounter procedure Mark O'Wiley PA-C Work Phone: Urology Comment on above: Nephrolithiasis (Mckenna kapil Dx); Hydronephrosis, unspecified hydronephrosis type Start: 12-06-2023 End: 12-07-2023 ambulatory Mark O'Wiley PA-C Work Phone: Urology Start: 12-06-2023 End: 12-06-2023 Subsequent hospital visit by physician X[facility] Radiology Comment on above: Nephrolithiasis [N20 .0] Start: 12-06-2023 End: 12-06-2023 Subsequent hospital visit by physician Us Main A21 5 Work Phone: Radiology Comment on above: Nephrolithiasis [N20 .0] Start: 12-01-2023 End: 12-01-2023 ambulatory KODY LOREDO Not Available Start: 11-24-2023 Non-patient / Non-visit [facility] Work Phone: Start: 11-22-2023 Non-patient / Non-visit [facility] Work Phone: Start: 11-12-2023 Non-patient / Non-visit [facility] Work Phone: Start: 11-11-2023 Non-patient / Non-visit [facility] Work Phone: Start: 10-27-2023 End: 10-28-2023 ambulatory RICCO GARLAND Facility:[facility] Start: 10-17-2023 End: 10-21-2023 ambulatory RICCO GARLAND Facility:[facility] Start: 10-15-2023 End: 10-15-2023 ambulatory Brina Cordero Other [employer] Other Start: 10-15-2023 Telephone encounter Brina Cordero [facility] Start: 10-07-2023 End: 10-07-2023 ambulatory Brina Cordero Other [employer] Other Start: 10-07-2023 Telephone encounter Brina Cordero [facility] Start: 10-05-2023 End: 10-05-2023 ambulatory Brina Cordero Other [employer] Other Start: 10-05-2023 Telephone encounter Brina Cordero [facility] Start: 09-23-2023 Encounter for other preprocedural examination BRINA CORDERO [facility] Start: 09-23-2023 End: 09-23-2023 ambulatory BRINA CORDERO Facility:[facility] Start: 09-23-2023 End: 09-24-2023 ambulatory BRINA CORDERO Facility:[facility] Start: 09-23-2023 End: 09-24-2023 ambulatory BRINA CORDERO Facility:[facility] Start: 09-23-2023 Preprocedural examin ation done Xr A21 [facility] Work Phone: Start: 09-17-2023 ambulatory BRINA CORDERO Facility :[facility] Start: 09-09-2023 End: 09-09-2023 ambulatory Brina Cordero Other [employer] Other Start: 09-09-2023 Transitional care janina singh srvc 14 day discharge Brina Cordero [facility] Start: 09-08-2023 Orders Only Ricco Garland MD Work Phone: Urology Comment on above: Hydronephrosis with urinary obstruction due to renal calculus (Primary Dx) Start: 09-07-2023 End: 09-08-2023 ambulatory RICCO GARLAND Facility:[facility] Start: 09-06-2023 ambulatory Harsh Hardy ty:OSWALDO Galvan Start: 09-03-2023 End: 09-04-2023 ambulatory Justino Martinez [employer] Other Start: 09-03-2023 Telephone encounter Brina Cordero [facility] Start: 09-01-2023 End: 09-03-2023 Evaluation and management of inpatient Brina Cordero Facility:[facility] Start: 08-31-2023 Evaluation and manag ement of inpatient MD Destiny Irwin Work Phone: [facility] Work Phone: Start: 08-31-2023 End: 08-31-2023 ambulatory Brina Cordero Other [employer] Other Start: 08-31-2023 Telephone encounter Brina Cordero [facility] Start: 08-30-2023 End: 08-30-2023 ambulatory Brina Cordero Other [employer] Other Start: 08-30-2023 Telephone encounter Brina Cordero [facility] Start: 08-26-2023 End: 08-27-2023 ambulatory Harsh Elizabeth Gigwell Other Start: 08-26-2023 Telephone encounter Brina Cordero [facility] Start: 08-24-2023 End: 08-24-2023 ambulatory Brina Cordero Other [employer] Other Start: 08-24-2023 Telephone encounter Brina Cordero [facility] Start: 08-23-2023 End: 08-23-2023 ambulatory Brina Cordero Other [employer] Other Start: 08-23-2023 Telephone encounter Brina Cordero [facility] Start: 08-03-2023 End: 08-03-2023 ambulatory Brina Cordero Other [employer] Other Start: 08-03-2023 Telephone encounter Brina Cordero [facility] Start: 08-02-2023 End: 08-02-2023 ambulatory Brina Cordero Other [employer] Other Start: 08-02-2023 Telephone encounter Brina Cordero [facility] Start: 07-21-2023 End: 07-21-2023 ambulatory Brina Cordero Other [employer] Other Start: 07-21-2023 Telephone encounter Brina Cordero [facility] Start: 07-19-2023 End: 07-19-2023 ambulatory Brina Cordero Other [employer] Other Start: 07-19-2023 Telephone encounter Brina Cordero [facility] Start: 07-05-2023 End: 07-05-2023 ambulatory Brina Cordero Other [employer] Other Start: 07-05-2023 Telephone encounter Brina Cordero [facility] Start: 06-11-2023 End: 06-11-2023 ambulatory Brina Cordero Other [employer] Other Start: 06-11-2023 Patient encounter procedure Brina Cordero [facility] Start: 05-26-2023 ([place]) Usp Brina Roxie M[facility] [place] Start: 05-26-2023 End: 05-26-2023 ambulatory Brina Cordero Other [employer] Other Start: 10-14-2021 End: 10-15-2021 ambulatory [facility] Start: 10-03-2021 End: 10-04-2021 ambulatory JUSTINO [facility] Start: 06-24-2021 End: 06-25-2021 ambulatory JUSTINO [facility] Start: 06-24-2021 End: 06-24-2021 Subsequent hospital visit by physician [place] Phone: [facility] Start: 04-12-2021 End: 04-12-[address] ALAN HERNANDEZ Facility:[facility] Start: 02-20-2021 End: 02-21-2021 ambulatory JUSTINO [facility] Start: 02-20-2021 End: 02-20-2021 Subsequent hospital visit by physician [place]ino [place] Phone: [facility] Start: 12-05-2020 End: 12-06-2020 ambulatory BENAHILI U MARIANELA Phillipsy [facility] Start: 12-05-2020 End: 12-05-2020 Subsequent [facility] Start: 11-07-2020 End: 11-08-2020 ambulatory JUSTINO [facility] Start: 11-07-2020 End: 11-07-2020 Subsequent [facility] Start: 11-06-2020 End: 11-07-2020 ambulatory JUSTINO [facility] Start: 11-06-2020 End: 11-06-2020 Subsequent hospital visit by physician Justino Dhaliwal [facility] Start: 10-30-2020 End: 10-31-2020 ambulatory [facility] Start: 10-30-2020 End: 10-30-2020 Subsequent hospital visit by physician Justino [facility] Start: 10-23-2020 End: 10-24-2020 ambulatory MANUEL IBARRA [facility] Start: 10-23-2020 End: 10-23-2020 Subsequent hospital visit by physician Justino [facility] Start: 09-26-2020 End: 09-26-2020 Subsequent hospital visit by physician Justino [facility] Start: 09-25-2020 End: 09-25-2020 Subsequent hospital visit by physician Justino [facility] Start: 09-18-2020 End: 09-18-2020 Subsequent hospital visit by physician Justino [facility] Start: 09-12-2020 End: 09-12-2020 Subsequent hospital visit by physician Glenn Martínez Work Phone: [facility] Comment on above: Decubitus ulcer of h eel, left, unstageable (HCC) (Primary Dx) Start: 09-11-2020 End: 09-11-2020 Subsequent [facility] Start: 09-06-2020 End: 09-06-2020 Subsequent hospital visit by physician Justino [facility] Start: 09-05-2020 End: 09-05-2020 Subsequent hospital visit by physician Justino [facility] Start: 08-28-2020 End: 08-28-2020 Subsequent hospital visit by physician Justino [facility] Start: 08-27-2020 End: 08-27-2020 Subsequent hospital visit by physician Justino [facility] Start: 08-21-2020 End: 08-21-2020 Subsequent hospital visit [facility] Start: 08-16-2020 End: 08-16-2020 Subsequent hospital visit by [facility] Start: 08-15-2020 End: 08-15-2020 Subsequent hospital visit by physician Glenn Martínez Work Phone: [facility] Comment on above: Decubitus ulcer of h eel, left, unstageable (HCC) (Primary Dx) Start: 08-09-2020 End: 08-09-2020 Subsequent hospital visit by physician Justino Dhaliwal [facility] Start: 07-18-2020 End: 07-18-2020 Subsequent hospital visit by physician Glenn Martínez Work Phone: [facility] [facility] Comment on above: Decubitus ulcer of h eel, left, unstageable (HCC) (Primary Dx); Pressure ulcer of left calf, stage 3 (HCC) Start: 07-18-2020 End: 07-18-2020 Subsequent hospital visit by physician Justino Dhaliwal [facility] Start: 07-09-2020 End: 07-09-2020 Subsequent hospital visit by physician Justino Dhaliwal [facility] Start: 07-01-2020 End: 07-01-2020 Subsequent hospital visit by physician Justino Dhaliwal [facility] Start: 06-27-2020 End: 06-27-2020 Subsequent hospital visit by physician Glenn Martínez Work Phone: [facility] Comment on above: Decubitus ulcer of h eel, left, unstageable (HCC) (Primary Dx); Pressure injury of left heel, stage 3 (HCC) Start: 06-25-2020 End: 06-25-2020 Subsequent hospital visit by physician Justino Dhaliwal [facility] Start: 06-24-2020 End: 06-24-2020 Subsequent hospital visit by physician Justino Dhaliwal [facility] Start: 06-19-2020 End: 06-19-2020 Subsequent hospital visit by physician Justino Dhaliwal [facility] Start: 06-19-2020 End: 06-19-2020 Subsequent hospital visit by physician Justino Dhaliawl [facility] Start: 06-18-2020 End: 06-18-2020 Subsequent hospital visit by physician Justino Dhaliwal [facility] Start: 06-13-2020 End: 06-13-2020 Subsequent hospital visit by physician Asif Lab Drawing Room [facility] Comment on above: Arrived Decubitus ulcer of h eel, left, unstageable (HCC) (Primary Dx) Start: 06-12-2020 End: 06-12-2020 Subsequent hospital visit by physician Justino Dhaliwal [facility] Start: 06-06-2020 End: 06-06-2020 Subsequent hospital visit by physician Justino Dhaliwal [facility] Start: 05-30-2020 End: 05-30-2020 Subsequent hospital visit by physician Glenn Martínez Work Phone: [facility] Start: 05-30-2020 End: 05-30-2020 Subsequent hospital visit by physician Justino Dhaliwal [facility] Start: 05-23-2020 End: 05-23-2020 Subsequent hospital visit by physician Justino Dhaliwal [facility] Start: 05-23-2020 End: 05-23-2020 Subsequent hospital visit by physician Justino Dhaliwal [facility] Start: 05-17-2020 End: 05-17-2020 Subsequent hospital visit by physician Justino Dhaliwal [facility] Start: 05-10-2020 End: 05-15-2020 Evaluation and management of inpatient CHELE LAGOS 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); Periprosthetic intertrochanteric fracture of femur, initial encounter Start: 05-09-2020 End: 05-09-2020 Subsequent hospital visit by physician Justino Dhaliwal [facility] Start: 05-08-2020 End: 05-08-2020 Subsequent hospital visit by physician Justino Dhaliwal [facility] Start: 05-03-2020 End: 05-03-2020 Subsequent hospital visit by physician Justino Dhaliwal [facility] Start: 04-10-2020 End: 04-10-2020 [facility] Start: 04-02-2020 End: 04-06-2020 Evaluation and management of inpatient Kian Cha Klever [facility] Comment on above: General weakness (Pr imary Dx); Hypokalemia; Malaise; Cellulitis of right upper extremity Start: 03-25-2020 End: 03-25-2020 Subsequent hospital visit by physician Justino Dhaliwal [facility] Start: 03-23-2020 End: 03-23-2020 Emergency department patient visit Forest Baer Work Phone: [facility] ED Comment on above: Pain of left hip bridger nt (Primary Dx) Start: 03-12-2020 End: 03-12-2020 Subsequent hospital visit [facility] Start: 02-27-2020 End: 02-27-2020 Subsequent hospital visit by physician Justino Dhaliwal [facility] Start: 02-20-2020 End: 02-20-2020 Subsequent hospital visit by physician Justino Dhaliwal [facility] Start: 02-09-2020 End: 02-15-2020 Evaluation and management of inpatient Carlos Carlin Facility:[facility] Start: 02-09-2020 End: 02-09-2020 Emergency department patient visit Mariusz Rodriguez Work Phone: [facility] ED Comment on above: Closed displaced int ertrochanteric fracture of left femur, initial encounter ([facility]) (Primary Dx) Start: 02-02-2020 End: 02-02-2020 Subsequent hospital visit by physician [facility] Lab Drawing Room [facility] Comment on above: Arrived Start: 10-30-2019 End: 10-30-2019 Subsequent hospital visit by physician Justino Dhaliwal [facility] Start: 08-11-2019 End: 08-13-2019 Subsequent hospital visit by physician [facility] Lab Drawing Room [facility] Comment on above: Arrived Chronic kidney disea se, stage IV (severe) ([facility]) Procedures Date Procedure Procedure Detail Performing Clinician Start: 01-04-2024 Bacteria identified in Urine by Culture Start: 12-06-2023 Radiologic exam abdo men 3+ views Ricco Garland MD Work Phone: Start: 12-06-2023 Us retroperitoneal r eal time w/image complete Ricco Garland MD Work Phone: Start: 09-23-2023 Antibody screen BRINA ROXIE Comment on above: Order Comment: Speci men Type: BLOOD SPECIMENOrdering Facility: [facility] Address: [address] [place] [address] Performed By: #### T [id number] ####CC MAIN BLOOD BANKCLIA [id number] [place] [address] [place] Start: 08-31-2023 Urine culture MD Destiny Irwin Work Phone: Start: 12-05-2020 Blood count complete auto&auto difrntl wbc Manuel Ibarra Work Phone: Start: 12-05-2020 C-reactive protein Sana Ibarra Work Phone: Start: 12-05-2020 Assay of blood/uric acid Benahili U Iboaya Work Phone: Start: 12-05-2020 Assay of magnesium Lares hili U Marianela Work Phone: Start: 12-05-2020 Assay of parathormone B enahili U Rockoaya Work Phone: Start: 12-05-2020 Renal function panel Be nahili U Marianela Work Phone: Start: 11-07-2020 Blood count complete auto&auto difrntl wbc Manuel Ibarra Work Phone: Start: 11-07-2020 C-reactive protein Sana jeffrey Ibarra Work Phone: Start: 11-07-2020 Sedimentation rate r bc automated Manuelchino Cunhaamy Work Phone: Start: 10-30-2020 Lipid panel Justino F Dany sse Work Phone: Start: 10-23-2020 Blood count complete automated Manuel Cunhaamy Work Phone: Start: 10-23-2020 C-reactive protein Sananedra Ibarra Work Phone: Start: 10-23-2020 Comprehensive metabo lic panel Manuel Ibarra Work Phone: Start: 10-23-2020 Sedimentation rate r bc automated Manuelchino Cunhaamy Work Phone: Start: 09-26-2020 Assay of magnesium Vincent s F Yazmin Work Phone: Start: 09-26-2020 Blood count complete automated Manuel Cunhaamy Work Phone: Start: 09-26-2020 C-reactive protein Sana jeffreychino Cunhaamy Work Phone: Start: 09-26-2020 Comprehensive metabo lic panel Manuel Cunhaamy Work Phone: Start: 09-26-2020 Sedimentation rate r bc automated Manuel Ratnasamy Work Phone: Start: 09-18-2020 Blood count complete automated Manuel Ratnasamy Work Phone: Start: 09-18-2020 C-reactive protein Sana jeffreychino Myersnasamy Work Phone: Start: 09-18-2020 Comprehensive metabo lic panel Manuel Ratnasamy Work Phone: Start: 09-18-2020 Sedimentation rate r bc automated Manuel Ratnasamy Work Phone: Start: 09-11-2020 Blood count complete automated Manuel Ratnasamy Work Phone: Start: 09-11-2020 C-reactive protein Sana jeffreychino Cunhaamy Work Phone: Start: 09-11-2020 Comprehensive metabo lic panel Manuelraymond Myersnasamy Work Phone: Start: 09-11-2020 Sedimentation rate r bc automated Manuel Ratnasamy Work Phone: Start: 09-06-2020 C-reactive protein Sananedra Cunhaamy Work Phone: Start: 09-06-2020 Comprehensive metabo lic panel Manuelraymond Myersnasamy Work Phone: Start: 09-05-2020 Blood count complete automated Manuel Ratnasamy Work Phone: Start: 09-05-2020 Comprehensive metabo lic panel Manuelraymond Myersnasamy Work Phone: Start: 09-05-2020 Sedimentation rate r bc automated Manuel Ratnasamy Work Phone: Start: 08-28-2020 Blood count complete automated Manuel Ratnasamy Work Phone: Start: 08-28-2020 C-reactive protein Sana jeffreychino Myersnasamy Work Phone: Start: 08-28-2020 Comprehensive metabo lic panel Manuel Ratnasamy Work Phone: Start: 08-28-2020 Sedimentation rate r bc automated Manuel Ratnasamy Work Phone: Start: 08-27-2020 Urinalysis microscop ic only Justino F Yazmin Work Phone: Start: 08-27-2020 Urnls dip stick/tabl et rgnt auto w/o microscopy Justino Dhaliwal Work Phone: Start: 08-21-2020 Blood count complete automated Manuel Ibarra Work Phone: Start: 08-21-2020 C-reactive protein Sana jeffrey Ibarra Work Phone: Start: 08-21-2020 Comprehensive metabo lic panel Manuel Ibarra Work Phone: Start: 08-21-2020 Sedimentation rate r bc automated Manuel Ibarra Work Phone: Start: 08-16-2020 Blood count complete automated Manuel Ibarra Work Phone: Start: 08-16-2020 C-reactive protein Sana jeffrey Ibarra Work Phone: Start: 08-16-2020 Comprehensive metabo [...] U Iboaya Work Phone: Start: 08-09-2020 Urinalysis microscop ic only Benahili U Iboaya Work Phone: Start: 08-09-2020 Urnls dip stick/tabl et rgnt auto w/o microscopy Benahili U Iboaya Work Phone: Start: 07-18-2020 Assay of blood/uric acid Benahili U Iboaya Work Phone: Start: 07-18-2020 Assay of magnesium Joselyn hili U Rockoaya Work Phone: Start: 07-18-2020 Assay of parathormone B enahili U Kerri Work Phone: Start: 07-18-2020 Blood count complete automated Benahili U Iboaya Work Phone: Start: 07-18-2020 Renal function panel Be nahili U Rockoaya Work Phone: Start: 07-18-2020 Creatinine other source Benahili U Iboaya Work Phone: Start: 07-18-2020 Protein total xcpt refractometry urine Benahili U Iboaya Work Phone: Start: 07-18-2020 Urinalysis microscop ic only Benahili U Iboaya Work Phone: Start: [...] xcpt urine blood/stool aerobic isol Justino Boone Yazmin Work Phone: Start: 06-19-2020 Lipid panel Justino [...] difrntl wbc Manuel Ratnasamy Work Phone: Start: 05-23-2020 C-reactive protein Sana jeffrey Ratnasamy Work Phone: Start: 05-23-2020 Comprehensive metabo lic [...] [place] Comment on above: Performed at [facility] [address] [place] [address] Start: 05-14-2020 PREPARE RBC (CROSSMATCH) CHELE LAGOS Start: 05-14-2020 TYPE AND SCREEN CHELE LAGOS Start: 05-14-2020 FOOT/ANKLE BOOT CHELE LAGOS Start: 05-14-2020 Radex foot complete minimum 3 views CHELE LAGOS Start: 05-14-2020 INITIATE OXYGEN THER APY PROTOCOL CHELE LAGOS Start: 05-14-2020 TRANSFUSION REACTION MANAGEMENT CHELE LAGOS Start: 05-14-2020 VERIFY INFORMED CONSENT CHELE LAGOS Start: 05-14-2020 VITAL SIGNS PER TRANSFUSION PROTOCOL CHELE LAGOS Start: 05-14-2020 Antibody bordetella SARA CRISTOBAL LAGOS Start: 05-14-2020 Basic metabolic pane l calcium total CHELE LAGOS Start: 05-14-2020 Blood count complete auto&auto difrntl wbc CHELE LAGOS Start: 05-14-2020 Blood smear peripher al interp phys w/writ report CHELE LAGOS Start: 05-14-2020 Creatinine blood CHELE LAGOS Start: 05-14-2020 Blood typing serologic abo Gheith Eliseo Work Phone: Start: 05-14-2020 Radex foot complete minimum 3 views Katarina iPke Work Phone: Start: 05-14-2020 Anion gap [Moles/Vol] [...] MISCELLANEOUS NURSIN G CARE ORDER (SPECIFY) CHELE ARANGOZINA Start: 05-13-2020 Blood count complete auto&auto difrntl wbc CHELE LAGOS Start: 05-13-2020 Antibody bordetella SARA JAIN DEMOND Start: 05-13-2020 Basic metabolic pane l calcium total CHELE ARANGOZINA Start: 05-13-2020 Creatinine blood CHELE LAGOS Start: 05-13-2020 MISCELLANEOUS NURSIN G CARE ORDER (SPECIFY) CHELE LAGOS Start: 05-13-2020 MONITOR WOUND DRAINAGE CHELE DEMOND Start: 05-13-2020 Blood count complete [...] CHELE LAGOS Start: 05-12-2020 BLADDER SCAN CHELE ARANGO AN Start: 05-12-2020 BLADDER SCAN Gheith You sif Work Phone: Start: 05-12-2020 INITIATE OXYGEN THER APY PROTOCOL CHELE LAGOS Start: 05-12-2020 WOUND OSTOMY EVAL NIKHIL N DEMOND Start: 05-12-2020 Antibody bordetella SARA CRISTOBAL HAMAN Start: 05-12-2020 Basic metabolic pane l calcium [...] MAGDIEL LAGOS Start: 05-11-2020 BLADDER SCAN CHELE ARANGO AN Start: 05-11-2020 BLADDER SCAN Gheith You sif Work Phone: Start: 05-11-2020 Blood count complete auto&auto difrntl wbc CHELE LAGOS Start: 05-11-2020 Antibody bordetella SARA CRISTOBAL CONCHITAAN Start: 05-11-2020 Basic metabolic pane l calcium total CHELE LAGOS Start: 05-11-2020 Creatinine blood CHELE ARANGOZINA Start: 05-11-2020 INITIATE OXYGEN THER APY PROTOCOL CHELE ARANGOZINA Start: 05-11-2020 Blood count complete auto&auto difrntl wbc Sylvia Grayson [place] Work Phone: Start: 05-11-2020 Anion gap [Moles/Vol] C ourlauren Grayson [place] Work Phone: Start: 05-11-2020 Basic metabolic pane l calcium total Sylvia Grayson [place] Work Phone: Start: 05-11-2020 GLOMERULAR FILTRATIO N RATE, ESTIMATED Card[facility] Work Phone: Start: 05-10-2020 DIET GENERAL CHELE IZAGUIRRE Start: 05-10-2020 IP CONSULT TO HOSPITALIST CHELE LAGOS Start: 05-10-2020 OT EVAL AND TREAT NIKHIL LAGOS Start: 05-10-2020 PLACE INTERMITTENT PNEUMATIC COMPRESSION DEVICE CHELE LAGOS Start: 05-10-2020 PT EVAL AND TREAT NIKHIL LAGOS Start: 05-10-2020 WEIGHT BEARING TOLERATED CHELE LAGOS Start: 05-10-2020 FULL CODE CHELE IZAGUIRRE Start: 05-10-[address]FFECT[address]A [address] MALICK LAGOS Start: 05-10-2020 INITIATE OXYGEN THER APY PROTOCOL CHELE LAGOS Start: 05-10-2020 INTAKE AND OUTPUT NIKHIL LAGOS Start: 05-10-2020 NEURO/VASCULAR CHECKS S MAGDIEL LAGOS Start: 05-10-2020 VITAL SIGNS CHELE IZAGUIRRE Start: 05-10-2020 Radex hip unilateral with pelvis 2-3 views CHELE LAGOS Start: 05-10-2020 PATIENT STATUS (FROM ED OR OR/PROCEDURAL) CHELE LAGOS Start: 05-10-2020 TRANSFER PATIENT CHELE LAGOS Start: 05-10-2020 Cul prsmptv pthgnc organism scrn w/colony estimj CHELE LAGOS Start: 05-10-2020 Radex hip unilateral with pelvis 2-3 views Sylvia Grayson [place] Work Phone: Start: 05-10-2020 ELEVATE HEELS OFF [...] [place] Comment on above: Performed at [facility] [address] [place] [address] Start: 05-10-2020 Blood typing serologic abo Chele Lagos Work Phone: Start: 05-10-2020 COVID-19 Chele Martín Nedra jose Work Phone: Start: 05-09-2020 Basic metabolic pane l calcium total Chele Lagos Work Phone: Start: 05-09-2020 Blood count complete automated Chele Lagos Work Phone: Start: 05-08-2020 Urinalysis microscop ic only Jose Armando Nannette Karla Work Phone: Start: 05-08-2020 Urnls dip stick/tabl et rgnt auto w/o microscopy Jose Armando Rich Karla Work Phone: Start: 05-03-2020 Basic metabolic pane l calcium total Justino Paolo Yazmin Work Phone: Start: 05-03-2020 Blood count complete auto&auto difrntl wbc Justino Paolo Yazmin Work Phone: Start: 04-10-2020 Blood count complete auto&auto difrntl wbc Justino Paolo Yazmin Work Phone: Start: 04-10-2020 Comprehensive metabo lic panel Justino Paolo Yazmin Work Phone: Start: 04-10-2020 Urnls dip stick/tabl et reagent auto microscopy Justino Paolo Yazmin Work Phone: Start: 04-06-2020 Blood count complete [...] 04-02-2020 End: 04-02-2020 CULTURE, BLOOD 1 Mariusz E Ryanmarie Work Phone: Start: 04-02-2020 Urnls dip stick/tabl et reagent auto microscopy Kian Ernst Start: 04-02-2020 Assay of magnesium Mariusz E Eidharmeshmarie Work Phone: Start: 04-02-2020 BASIC METABOLIC PANE [...] Blood count complete auto&auto difrntl wbc Kian Cha Ernst Start: 04-02-2020 Ecg routine ecg w/le ast 12 lds i&r only Kian Molinazpatrick Start: 04-02-2020 EKG REPORT Hpf Scanni ng Start: 04-02-2020 Radiologic exam ches t single view Kian Cha Klever Start: 03-25-2020 Blood count complete auto&auto difrntl wbc Justino Dhaliwal Work Phone: Start: 03-25-2020 Comprehensive metabo lic panel Justino Dhaliwal Work Phone: Start: 03-23-2020 COVID-19 Forest Mtz deborah Work Phone: Start: 03-23-2020 Radex hip unilateral with pelvis 2-3 views Forest Carpentervelma Work Phone: Start: 03-23-2020 BASIC METABOLIC PANE L W/ REFLEX TO MG FOR LOW K Forest Carpentervelma Work Phone: Start: 03-23-2020 Blood count complete auto&auto difrntl wbc Forest Baer Work Phone: Start: 03-23-2020 Prothrombin time Forest Baer Work Phone: Start: 03-23-2020 Thromboplastin time partial plasma/whole blood Forest Baer Work Phone: Start: 03-12-2020 Blood count complete auto&auto difrntl wbc Justino Thompsonse Work Phone: Start: 03-12-2020 Comprehensive metabo lic panel Justino Dhaliwal Work Phone: Start: 02-27-2020 Blood count complete auto&auto difrntl wbc Justino Thompsonse Work Phone: Start: 02-27-2020 Comprehensive metabo lic panel Justino Dhaliwal Work Phone: Start: 02-20-2020 Blood count complete auto&auto difrntl wbc Justino Boone Yazmin Work Phone: Start: 02-20-2020 Comprehensive metabo lic panel Justino Dhaliwal Work Phone: Start: 02-09-2020 Ct cervical spine w/ o contrast material Mariusz Latanya Michael Work Phone: Start: 02-09-2020 Ct head/brain w/o co ntrast material Mariusz Latanya Michael Work Phone: Start: 02-09-2020 Radex hip unilateral with pelvis 2-3 views Mariusz Latanya Michael Work Phone: Start: 02-09-2020 Radiologic exam ches t single view Mariusz Latanya Michael Work Phone: Start: 02-09-2020 Blood count complete auto&auto difrntl wbc Mariusz E Michael Work Phone: Start: 02-09-2020 Prothrombin time Mariusz E Michael Work Phone: Start: 02-09-2020 Thromboplastin time partial plasma/whole blood Mariusz Latanya Rodriguez Work Phone: Start: 02-02-2020 Assay of blood/uric acid Benahili U Iboaya Start: 02-02-2020 Assay of magnesium Lares hili U Iboaya Start: 02-02-2020 Assay of [...] U Iboaya Start: 08-11-2019 Assay of thyroid stimulating hormone tsh Benahili U Iboaya Start: 08-11-2019 Blood count complete automated Benahili U Iboaya Start: 08-11-2019 Creatinine clearance Be maryili U Iboaya Start: 08-11-2019 Creatinine other source Benzacharyili U Iboaya Start: 08-11-2019 End: 08-11-2019 Protein total xcpt refractometry urine Benzacharyili U Iboaya Start: 08-11-2019 Renal function panel Be nahili U Iboaya Start: 08-11-2019 Urnls dip stick/tabl et reagent auto microscopy Benzacharyili U Iboaya Start: 08-11-2019 VITAMIN B12 & FOLATE Be lindy U Iboaya History of operative procedure on knee History of knee replacement Plan of Treatment Date Care Activity Detail Author Start: 10-21-2026 Diabetes Screening Diabetes Screenin gonzalo [facility] Start: 06-09-2024 End: 06-09-2024 Patient encounter procedure Radiology Comment on above: XR ABDOMEN 3V KUB W/ OBLIQUES per checkout US KIDNEY/BLADDER pe r checkout 6 month f/u for neph rolithiasis per checkout Start: 05-28-2024 Influenza vaccination Influenz a Vaccine (Season Ended) [facility] Start: 10-23-2023 Diabetes Screening Diabetes Screenin g [facility] Start: 09-27-2023 Advance Directive Discussion Advance Directive Discussion [facility] Start: 09-27-2023 Behavioral Health Screening Behavioral Health Screening [facility] Start: 09-27-2023 Depression Assessment Depression Ass essment [facility] Start: 08-31-2023 End: 08-31-2023 [facility] Start: 08-31-2023 Plain chest X-ray XR chest 2V* [facility] Start: 08-31-2023 XR Chest 2 Views [facility] Start: 08-31-2023 CT Abdomen and Pelvi s WO contrast [facility] Start: 08-31-2023 CT of abdomen and pe lvis without contrast CT abdomen pelvis wo con [facility] Start: 08-31-2023 CT of head without contrast CT head/brain wo con [facility] Start: 08-31-2023 CT Unspecified body region WO contrast [facility] Start: 08-31-2023 [facility] Start: 05-28-2023 Covid-19 Vaccine ( season) Covid-19 Vaccine () [facility] Start: 05-28-2023 Influenza vaccination Influenza Vacc ine (#1) [facility] Start: 09-27-2022 Advance Directive Discussion Advance Directive Discussion [facility] Start: 09-27-2022 Depression Assessment Depression Ass [facility] Start: 12-05-2021 Creatinine measurement Creatinine mo [facility] Work Phone: Start: 12-05-2021 Potassium monitoring Potassium monit [facility] Work Phone: Start: 10-30-2021 Lipid panel Lipid screen [facility] Work Phone: Start: 10-23-2021 Creatinine measurement Creatinine mo [place], [place] Start: 10-23-2021 Potassium monitoring Potassium monit [facility], [place] Start: 09-26-2021 Creatinine measurement Creatinine mo [place], [place] Start: 09-26-2021 Potassium monitoring Potassium monit [facility] Start: 09-18-2021 Creatinine measurement Creatinine mo [place], [place] Start: 09-18-2021 Potassium monitoring Potassium monit [facility] Start: 09-11-2021 Creatinine measurement Creatinine mo [place], [place] Start: 09-11-2021 Potassium monitoring Potassium monit [place], [place] Start: 06-19-2021 Lipid panel Lipid screen [facility], [place] Start: 05-28-2021 Influenza vaccination M cheng [employer] Work Phone: Start: 04-05-2021 Creatinine measurement Creatinine mo [facility], [place] Start: 04-05-2021 Potassium monitoring Potassium monit [facility] Start: 03-23-2021 Creatinine measurement Creatinine mo [facility] Start: 03-23-2021 Potassium monitoring Potassium monit [facility] Start: 03-12-2021 Creatinine measurement Creatinine mo [facility] Start: 03-12-2021 Potassium monitoring Potassium monit [facility] Start: 02-26-2021 Creatinine measurement Creatinine mo [facility] Start: 02-26-2021 Potassium monitoring Potassium monit [facility] Start: 02-19-2021 Creatinine measurement Creatinine mo [facility] Start: 02-19-2021 Potassium monitoring Potassium monit [facility] Start: 02-08-2021 Creatinine measurement Creatinine mo [facility] Start: 02-08-2021 Potassium monitoring Potassium monit [facility] Start: 02-01-2021 Creatinine measurement Creatinine mo [facility] Start: 02-01-2021 Potassium monitoring Potassium monit [facility] Start: 10-30-2020 Creatinine measurement Creatinine mo [facility] Start: 10-30-2020 Potassium monitoring Potassium monit [facility] Start: 09-12-2020 End: 09-12-2020 Appointment 09/12/2020 Appointment Wound Ostomy Glenn Martínez, NORAH [address] [facility] [address] [address] [phone] [facility] Start: 08-15-2020 End: 08-15-2020 Appointment 08/15/2020 Appointment Wound Ostomy Glenn Martínez DPM [address] [facility] [address] [address] [phone] [facility] Start: 08-11-2020 Creatinine monitoring Creatinine mon [place], [place] Start: 08-11-2020 Potassium monitoring Potassium monit [place], [place] Start: 07-18-2020 End: 07-18-2020 Appointment 07/18/2020 Appointment Wound OstGlenn Gonzalez, DPM [address] [place] [address] [phone] [facility] Start: 06-27-2020 End: 06-27-2020 Appointment 06/27/2020 Appointment Wound Ostomy Glenn Martínez, DPM [address] [place] [address] [phone] [facility] Start: 06-13-2020 End: 06-13-2020 Appointment 06/13/2020 Appointment Wound Ostomy Glenn Martínez, DPM [address] [place] [address] [phone] [facility] Start: 05-28-2020 Influenza vaccination [place], [place] Start: 05-28-2019 Influenza vaccination Flu vaccine (# 1) [place], [place] Start: 03-17-2019 Annual Wellness Visi t (AWV) Annual Wellness Visit (AWV) [place] Start: 03-08-2019 Creatinine monitoring Creatinine mon [place], [place] Start: 03-08-2019 Lipid panel Lipid screen [place], [place] Start: 03-08-2019 Lipid screen Lipid screen [place] Start: 03-08-2019 Potassium monitoring Potassium monit [place], [place] Start: 2002 DEXA (modify frequen cy per FRAX score) DEXA (modify frequency per FRAX score) [place], [place] Start: 2002 Pneumococcal 65+ yea rs Vaccine (1 of 1 - PPSV23) Pneumococcal 65+ years Vaccine (1 of 1 - PPSV23) [place] Start: 2002 Pneumococcal 65+ yrs at Risk Vaccine (1 of 2 - PCV13) Pneumococcal 65+ yrs at Risk Vaccine (1 of 2 - PCV13) [place] Start: 2002 Pneumococcal Vaccine : 65+ (1 - PCV) Pneumococcal Vaccine: 65+ (1 - PCV) [facility] Start: 2002 Pneumococcal Vaccine : 65+ (1 of 1 - PCV) Pneumococcal Vaccine: 65+ (1 of 1 - PCV) [facility] Start: 2002 Screening for osteoporosis Bone Density Screening [facility] Start: 1997 RSV Vaccine (1 - 1-d ose 60+ series) RSV Vaccine (1 - 1-dose 60+ series) [facility] Start: 1992 Screening for osteoporosis DEXA (modify frequency per FRAX score) [place] Start: 1987 Shingles Vaccine (1 of 2) Galindo gles Vaccine (1 of 2) [place] Start: 1987 Shingrix Vaccine (1 of 2) Galindo grix Vaccine (1 of 2) [facility] Start: 1956 DTaP/Tdap/Td vaccine (1 - Tdap) DTaP/Tdap/Td vaccine (1 - Tdap) [place] Start: 1956 Urine microalbumin profile DTaP,Tdap,Td Vaccine (1 - Tdap) [facility] Start: 1953 COVID-19 Vaccine (1 of 2) COVI D-19 Vaccine (1 of 2) [place] Start: 1949 COVID-19 Vaccine (1) COVID-19 Vaccin e (1) [facility] Work Phone: Start: 1948 DTaP/Tdap/Td vaccine (1 - Tdap) DTaP/Tdap/Td vaccine (1 - Tdap) [place] Start: 02-07-1936 Covid-19 Vaccine (#1) Covid-19 Vacci ne (#1) [facility] Bacteria identified in Blood by Culture [facility] Bacteria identified in Urine by Culture [facility] CBC auto differential CBC auto d ifferential Lab Routine Daily until discontinued starting 04/05/2020, 2 completed [employer] [place] Comment on above: Daily until disconti nued starting 04/05/2020, 2 completed Comprehensive metabo lic 2000 panel Comprehensive metabolic panel Lab Routine Daily until discontinued starting 04/05/2020, 2 completed [employer] [place] Comment on above: Daily until disconti nued starting 04/05/2020, 2 completed End: 01-06-2025 CT Abdomen and Pelvis WO contrast CT FLANK WO IVCON Radiology STAT Nephrolithiasis 1 Occurrences starting 12/08/2023 until 01/06/2025 [facility] Work Phone: Comment on above: 1 Occurrences starti ng 12/08/2023 until 01/06/2025 Culture, Anaerobic a nd Aerobic Culture, Anaerobic and Aerobic Microbiology Routine 05/10/2020 1:31 PM EDT [facility] [place] Culture, Blood 1 [facility], [place] End: 04-10-2020 Culture, Urine Culture, Urine Microbiology Routine Once for 1 Occurrences starting 04/10/2020 until 04/10/2020 [facility] Comment on above: Once for 1 Occurrenc es starting 04/10/2020 until 04/10/2020 Culture, Urine [facility] [employer] [place] End: 05-08-2020 Culture, Urine Culture, Urine Microbiology Routine Once for 1 Occurrences starting 05/08/2020 until 05/08/2020 [facility] Comment on above: Once for 1 Occurrenc es starting 05/08/2020 until 05/08/2020 End: 08-09-2020 Culture, Urine Culture, Urine Microbiology Routine Once for 1 Occurrences starting 08/09/2020 until 08/09/2020 [facility] Comment on above: Once for 1 Occurrenc es starting 08/09/2020 until 08/09/2020 End: 08-27-2020 Culture, Urine Culture, Urine Microbiology Routine Once for 1 Occurrences starting 08/27/2020 until 08/27/2020 [facility] Comment on above: Once for 1 Occurrenc es starting 08/27/2020 until 08/27/2020 Culture, Wound [facility] Hemoglobin and Hematocrit, Blood, Post Transfusion Hemoglobin and Hematocrit, Blood, Post Transfusion Lab Routine Post Transfusion Post Transfusion Post Transfustion for 1 Occurrences starting 05/14/2020 [facility] Comment on above: Post Transfusion Pos t Transfusion Post Transfustion for 1 Occurrences starting 05/14/2020 Initiate Oxygen Ther apy Protocol Initiate Oxygen Therapy Protocol Respiratory Care Routine Daily until discontinued starting 04/03/2020 [facility] Comment on above: Daily until disconti nued starting 04/03/2020 End: 08-11-2019 Iron and TIBC Iron and TIBC Lab Routine Once for 1 Occurrences starting 08/11/2019 until 08/11/2019 [facility] Comment on above: Once for 1 Occurrenc es starting 08/11/2019 until 08/11/2019 Iron and TIBC Iron and TIBC La b Routine 08/11/2019 10:35 AM EST [facility] End: 10-07-2024 Kidney img morphology vascular flow 1 w/rx NM RENAL FLOW/FXN W PHARM Radiology Routine Hydronephrosis with urinary obstruction due to renal calculus 1 Occurrences starting 09/08/2023 until 10/07/2024 [facility] Work Phone: Comment on above: 1 Occurrences starti ng 09/08/2023 until 10/07/2024 Oxygen therapy [Mini [facility] Data Set] Initiate Oxygen Therapy Protocol Respiratory Care Routine Daily until discontinued starting 05/11/2020 [facility] [place] Comment on above: Daily until disconti nued starting 05/11/2020 PREPARE RBC (CROSSMA TCH), 1 Units PREPARE RBC (CROSSMATCH), 1 Units Blood Bank Non-Stat 05/14/2020 8:58 AM EDT [facility] Transfuse erythrocyt es [Vol] Transfuse RBC Nursing Transfusion Routine 05/14/2020 11:30 AM EDT [facility] URINALYSIS, REFLEX MICROSCOPIC URINALYSIS, REFLEX MICROSCOPIC Lab Routine Screening for genitourinary condition Ordered: 12/06/2023 [facility] Work Phone: Comment on above: Ordered: 12/06/2023 End: 01-05-2025 US Kidney - bilateral and Urinary bladder US KIDNEY/BLADDER Radiology Routine Nephrolithiasis 1 Occurrences starting 12/06/2023 until 01/05/2025 [facility] Work Phone: Comment on above: 1 Occurrences starti ng 12/06/2023 until 01/05/2025 End: 01-04-2025 XR Abdomen GE 3 Views AP and Oblique and Cone XR ABDOMEN 3V KUB W/OBLIQUES Radiology Routine Nephrolithiasis 1 Occurrences starting 12/06/2023 until 01/04/2025 [facility] Work Phone: Comment on above: 1 Occurrences starti ng 12/06/2023 until 01/04/2025 [facility] Payers Date Payer Category Payer Self-pay 2023 Medicaid MEDICAID [facility] MEDICAID [id number] 2023-Present [phone] [address] [place] [address] Medicaid [id number] 2022 Medicaid [id number] 2020 Unknown 2017 Medicare BS MEDICARE AN THEM MEDIBLUE ESSENTIAL/PLUS xxxxxxxxxxxx 2017-Present [address] [address] [place] [address] xxxxxxxxxxxx [id number] 2017 Medicare BCBS MEDICARE AN THEM MEDIBLUE ESSENTIAL/PLUS [id number] 2017-Present [address] [address] [place] [address] [id number] .[id number] 2002 Medicare 2002 Medicare [id number] 1959 Medicare [id number] [id number] .[id number] 1937 Unknown [id number] 2.16.840.1.170558.3.579.2.93 1937 Unknown [id number] 2.16.840.1.158010.3.579.2.196 1937 Unknown [id number] 2.16.840.1.263171.3.579.2.593 1937 Unknown [id number] 2.16.840.1.951216.3.579.2.173 1937 Unknown [id number] 2.16.840.1.217084.3.579.2.173 1937 Unknown [id number] 2.16.840.1.246369.3.579.2.173 1937 Unknown [id number] 2.16.840.1.569067.3.579.2.173 1937 Unknown [id number] 2.16.840.1.572221.3.579.2.173 1937 Unknown [id number] 2.16.840.1.711157.3.579.2.173 1937 Unknown [id number] 2.16.840.1.397552.3.579.2.173 1937 Unknown [id number] 2.16.840.1.164252.3.579.2.173 1937 Unknown [id number] 2.16.840.1.040448.3.579.2.173 1937 Unknown [id number] 2.16.840.1.367136.3.579.2.173 1937 Unknown [id number] 2.16.840.1.033938.3.579.2.727 1937 Unknown [id number] 2.16.840.1.329494.3.579.2.727 1937 Unknown [id number] 2.16.840.1.500151.3.579.2.125 9 1937 Unknown [id number] 2.16.840.1.424131.3.579.2.125 9 1937 Unknown [id number] 2.16.840.1.581409.3.579.2.125 9 1937 Unknown [id number] 2.16.840.1.267370.3.579.2.125 9 1937 Unknown [id number] 2.16.840.1.498240.3.579.2.125 9 1937 Unknown [id number] 2.16.840.1.210507.3.579.2.125 9 Unknown [id number] 2.16.840.1.366498.3.579.2.531 Social History Date Type Detail Facility Start: 09-27-2017 End: 09-07-2023 Tobacco smoking status WAIS Never smoker [facility] Start: 09-27-2017 End: 09-12-2020 Alcohol intake Current non-drinker of alcohol (finding) [place] Start: 1935 Sex Assigned At Not on file [employer] Exposure to SARS-CoV-2 (event) Unable to assess [place] Start: 04-03-2020 End: 09-07-2023 Tobacco use and exposure Never used [place] Exposure to SARS-CoV-2 (event) Not sure [place] Exposure to SARS-CoV-2 (event) Yes [place] Start: 09-07-2023 End: 12-06-2023 Sex Assigned At [facility] [employer] Other Start: 1935 Sex Assigned At Female F [facility] Start: 09-07-2023 End: 12-06-2023 History of Social function [facility] National Score (1-100), lower number is lower risk 63 [facility] Start: 12-06-2023 Alcohol intake Lifetime non-d denise (finding) [facility] Medical Equipment Procedure Code Equipment Code Equipment Origin al Text Equipment Identifier Dates Impl Hip Cover T hr Hole Med Demand [id number] Start: 05-10-2020 Impl Hip Screw Redapt Lk 30mm [id number] Start: 05-10-2020 Impl Hip Screw Redapt Lk 40mm [id number] Start: 05-10-2020 Impl Hip Screw Redapt Lk 30mm [id number] Start: 05-10-2020 Impl Hip Acet Li ner R3 0 Deg 36 X 52 [id number] Start: 05-10-2020 Redapt Modular- Ackerman/Nephew [id number] Start: 05-10-2020 Impl Hip Fem Com p Redapt 240mm Sz 15 [id number] Start: 05-10-2020 Impl Hip Fem Hea d Coblt Chrome 12to14 3 [id number] Start: 05-10-2020 Stent Inlay Opti ma 7fr Taper [place] Green Polymer Phreecoat 24cm Ureteral - [id number]_[facility] Start: 10-18-2023 Clinical Notes 05-26-2023 to 02-17-2024 Telephone Encounter - Moni Chaudhari RN - 02/17/2024 11:06 AM EDTTelephone Encounter - Moni Chaudhari RN - 02/17/2024 11:06 AM EDTTelephone Encounter - Yuly Hernandez - 01/31/2024 2:14 PM EDT Note Date & Type Note Facility 02-17-2024 Telephone encounter Note Called and spoke with patients daughter to discuss external CT results. 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 No swelling or obstruction seen in either kidney. Will update Mark Cesar to review actual imaging and advise on next steps. Did inform daughter that he is out of office today, so will be back tomorrow. Patients daughter voiced understanding. Moni Chaudhari RN February 17, 2024 11:09 AM ----- Message from Khushboo Davila sent at 02/17/2024 10:57 AM EDT ----- Regarding: CT Follow up Contact: Good morning, Pt daughter called she wants someone to call her and go over pt CT with her and discuss the next steps. Please advise. Khushboo Berumen [facility] 02-17-2024 Miscellaneous Notes Called and spoke with patients daughter to discuss external CT results. 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 No swelling or obstruction seen in either kidney. Will update Mark Cesar to review actual imaging and advise on next steps. Did inform daughter that he is out of office today, so will be back tomorrow. Patients daughter voiced understanding. Moni Chaudhari RN February 17, 2024 11:09 AM ----- Message from Khushboo Davila sent at 02/17/2024 10:57 AM EDT ----- Regarding: CT Follow up Contact: Good morning, Pt daughter called she wants someone to call her and go over pt CT with her and discuss the next steps. Please advise. ThanksKhushboo Urology documented in this encounter [facility] 01-31-2024 Telephone encounter Note Today we got an outside CT faxed in for Jesús. It is uploaded in her scanned documents. [facility] 01-31-2024 Miscellaneous Notes Today we got an outside CT faxed in for Jesús. It is uploaded in her scanned documents. documented in this encounter [facility] 01-04-2024 Miscellaneous Notes Mailed pt CT orders so they can have done locally when they get apt they will call to schedule VV with Mark eCsar documented in this encounter [facility] 12-08-2023 Miscellaneous Notes Addended by: MARK CESAR [...] 2023 12 PM documented in this encounter [facility] 12-06-2023 Note HNO ID: [id number] Author: MARK CESAR PA-C Service: ? Author Type: Physician Weight Reducing Technician Type: Progress Notes Filed: 12/07/2023 14:24 Note [...] Monocytes % 10/17/2023 9.5 % Final Abs [place] 10/17/2023 0.68 <0.87 k/uL Final Eosinophils % [...] (H) 74 - 99 mg/dL Final The [place] Diabetes Association (ADA) provides guidance for cutoff [...] Standards of Medical Care in Diabetes 2016, [place] Diabetes Association. Diabetes Care. 2016.39(Suppl 1). BUN [...] Final Calcium, Total (more content not included)... [facility] 12-06-2023 Note HNO ID: [id number] Author: STAR CANALES RT(R) Service: ? Author [...] PATIENT PRESENTS WITH AN IMPLANTABLE OR ATTACHED PACKER INSULATION: No RADIOLOGY DEPARTMENT: General X-ray: Exam(s) Completed: Abdomen X-Ray: Abdomen with Obliques PERIPHERAL IV DATA: Not applicable SIGNED BY: RT Eveline(R) December 06, 2023 1:47 PM [facility] 12-06-2023 Instructions Mark Cesar PA-C - 12/06/2023 2:49 PM EDT documented in this encounter [facility] 12-06-2023 History of Presen t illness Narrative [...] Monocytes % 10/17/2023 9.5 % Final Abs [place] 10/17/2023 0.68 <0.87 k/uL Final Eosinophils % [...] (H) 74 - 99 mg/dL Final The [place] Diabetes Association (ADA) provides guidance for cutoff [...] Standards of Medical Care in Diabetes 2016, [place] Diabetes Association. Diabetes Care. 2016.39(Suppl 1). BUN [...] with VKA drugs, such as warfarin, the [place] College of Chest [employer]icians 2012 Guideline recommends [...] Chest 2012, 141:7S-47S Shital RA, et al. [facility] 2017, 70: 252-289 WBC 10/18/2023 18.32 (H) [...] (H) 74 - 99 mg/dL Final The [place] Diabetes Association (ADA) provides guidance for cutoff [...] Standards of Medical Care in Diabetes 2016, [place] Diabetes Association. Diabetes Care. 2016.39(Suppl 1). BUN [...] developed and its performance characteristics determined by [facility]'s [facility] Pathology and Laboratory Medicine [place] ([facility]). It has not been cleared or approved by the FDA. -[facility] is regulated under CLIA as qualified to perform high-complexity testing. This test is used for clinical purposes. It should not be regarded as investigational or for research. Glucose 10/19/2023 131 (H) 74 - 99 mg/dL Final The [place] Diabetes Association (ADA) provides guidance for cutoff [...] Standards of Medical Care in Diabetes 2016, [place] Diabetes Association. Diabetes Care. 2016.39(Suppl 1). BUN [...] Monocytes % 10/19/2023 8.7 % Final Abs [place] 10/19/2023 1.09 (H) <0.87 k/uL Final Eosinophils [...] 92 74 - 99 mg/dL Final The [place] Diabetes Association (ADA) provides guidance for cutoff [...] Standards of Medical Care in Diabetes 2016, [place] Diabetes Association. Diabetes Care. 2016.39(Suppl 1). BUN [...] (H) 74 - 99 mg/dL Final The [place] Diabetes Association (ADA) provides guidance for cutoff [...] Standards of Medical Care in Diabetes 2016, [place] Diabetes Association. Diabetes Care. 2016.39(Suppl 1). BUN [...] All fluids count but water is best. [place] intake - Recommend increasing dietary citrate intake. [...] your diet without supplements if you eat cbuhj-jo-syek servings of calcium-rich food. Many foods and [...] is affecting your uric acid levels. https://www.urologyhealth.org/ur shadogy-a-z/k/kidney-stones#Preven tion%20of%20Future%20Stones RTC in 6 months w/ new imaging. I spent a total of 20 minutes on the date of the service which included preparing to see the patient, qndc-nm-gplj patient care, completing clinical documentation, obtaining and/or reviewing separately obtained history, counseling and educating the patient/family/caregiver, ordering medications, tests, or procedures, and communicating results to the patient/family/caregiver. Mark Cesar PA-C documented in this encounter [facility] 12-06-2023 Note Patient Outreach (UR OLMN) JESÚS NOLAN ([id number]) 1935 F Date Time Provider Department 12/06/23 MARK CESAR UROLUCIANA During your visit today, we recorded the following information about you: Allergies As of Date: 12/06/2023 (No Known Allergies) Date Reviewed: 12/06/2023 Reviewed by: Kya Rodriguez OCCA - Fully Assessed Visit Diagnosis:Screening for genitourinary condition [Z13.89] Order(s):URINALYSIS, REFLEX MICROSCOPIC [[id number]] Order #: [id number]. #:[id number] Prescriptions as of 12/09/2023 - acetaminophen (TYLENOL [...] Encounter Status:Closed by EPIC, PRODUSER on 12/09/23 [facility] 12-06-2023 History of Presen t illness Narrative [...] PATIENT PRESENTS WITH AN IMPLANTABLE OR ATTACHED PACKER INSULATION: No RADIOLOGY DEPARTMENT: General X-ray: Exam(s) Completed: Abdomen X-Ray: Abdomen with Obliques PERIPHERAL IV DATA: Not applicable SIGNED BY: RT Eveline(R) December 06, 2023 1:47 PM documented in this encounter [facility] 10-27-2023 Note HNO ID: [id number] Author: RICCO GARLAND MD Service: ? Author [...] Ricco Garland MD Director, Surgical Stone Disease [facility] Urologic [place], [facility] Pager [phone] 10/27/2023 [facility] 10-27-2023 Note HNO ID: [id number] Author: CHRISTA FLANAGAN RN Service: ? Author [...] Visit completed when applicable. Christa Flanagan RN [facility] 10-21-2023 Note HNO ID: [id number] Author: JACOB PALMER MD Service: Urology Author Type: Resident Type: Progress Notes Filed: 10/21/2023 06:46 Note Text: [facility] UROLOGY PROGRESS NOTE Name: Jesús Nolan Bed: G090 [id number] Date: 10/21/2023 After Hours [facility] [place] [facility] Service Pager: [phone] ASSESSMENT Jesús Nolan is a 88 year [...] physician Dr Dada Esteves MD Urology PGY2 [facility] Urological and Kidney [place] For weekend or after hours issues [place] [phone] Active Problems Anemia of chronic disease, POA- [...] 1.91* GLUC 92 131* 197* Imaging Reviewed [facility] 10-20-2023 Note HNO ID: [id number] Author: LORENA PRESTON RPh Service: Pharmacy Author Type: Pharmacist Type: Plan [...] Solid Organ Transplant and Internal Medicine Clinical Inhalation Therapy Aides Teacher Phone: [phone] Serum creatinine: 2.02 mg/dL (H) 10/19/23 0615 [...] Medications These medications were sent to e- [facility]/pharmacy [address] [phone] [place] [address] amoxicillin 250 mg capsule tamsulosin 0.4 mg You can get these medications from any pharmacy You don't need a prescription for these medications acetaminophen 500 mg tablet [facility] 10-20-2023 Note HNO ID: [id number] Author: RICCO GARLAND MD Service: Urology Author [...] FACS Director, Surgical Stone Disease, [facility] Urologic [place] vessel operator, [facility] [employer] Pager [phone] 10/20/2023 [facility] 10-20-2023 Note HNO ID: [id number] Author: YESSICA LEE, [place] Service: Pharmacy Author Type: Housekeeping Director Type: Plan of Care Filed: 10/20/2023 08:37 Note Text: Insurance investigation completed Patient has active prescription insurance: Yes - Patient's insurance is in-network with [facility] Insurance loaded into [employer]: Yes Test claim was completed to verify insurance is active: Successful Any questions, please contact your medication advertising operations coordinator. Pager #: [phone] [facility] 10-20-2023 Note HNO ID: [id number] Author: RICCO GARLAND MD Service: Urology Author [...] mental status. Her stone came back infected (uudhjnoum-hpielnzg-pkoecgnor) and even though there are no other signs of sepsis at this time, we need to watch for this as well. Ricco Garland MD, FACS Director, Surgical Stone Disease, [facility] Urologic [place] vessel operator, [facility] Pager [phone] 10/20/2023 [facility] 10-20-2023 Note HNO ID: [id number] Author: JACOB PALMER MD Service: Urology Author Type: Resident Type: Progress Notes Filed: 10/20/2023 06:56 Note Text: [facility] PROGRESS NOTE Name: Jesús Nolan Bed: G090 [id number] Date: 10/20/2023 After Hours [facility] Urology Service Pager: [phone] ASSESSMENT Jesús Nolan is a 88 year [...] physician Dr Dada Esteves MD [facility]rology PGY2 [facility] [place] For weekend or after hours issues [place] [phone] Active Problems Anemia of chronic disease, POA- [...] 2.11* GLUC 131* 197* 129* Imaging Reviewed [facility] 10-19-2023 Note HNO ID: [id number] Author: SERG ROTH LSW Service: Care Management Author Type: Salesperson Meats Type: Care Mgt Initial Assessment Filed: 10/19/2023 16:08 Note Text: CARE MANAGEMENT: ASSESSMENT AND DISCHARGE PLAN SERVICE DATE: October 19, 2023 SERVICE TIME: 4:04 PM PCP: Brina Cordero MD Primary Contact: Extended Emergency Contact Information Primary Emergency Contact: MARANDA DA SILVA [facility] Mobile Relation: Daughter Admission Status: Observation Insurance Provider: MEDICARE A AND B Discharge Planning requested by: Per Department Practice Potential Transition Plans Assisted/Supervised Living Advance Directives Current Advance Directive: None Weigher Operator Attempted to Assist with AD Completion: Yes Action: Education Provided Current Living Arrangements and Support Lives with: Other person(s) Assisted Living Type of Residence: Assisted Living Facility Care Facility Name: [facility] [phone] Support: Family members How do you manage to accomplish the following: Needs Assistance: Ambulation;Bathe/Shower;Dress;Me als/Meal Prep;Going to the bathroom;Medication Management;Transportation to appointments/community Current Services/Equipment Current Post-Acute Service(s): None Discharge Planning Patient Goal(s): Be able to go home, General wellness [place] of Choice Explained: [place] of Choice Given: No Reason Not Given: No placements necessary Are you interested in bedside delivery of your medications? Yes Discharge Planning Participant(s): Patient;Family Patient/Family Comments: Dtr completed assessment. Pt is extremely [place] Caregiver Assessment: Caregiver is ready, willing and able to meet the patient's needs as recommended by the inter-professional team: Yes Transport at Discharge: Transportation Arrangements: Car Needs Prior to Discharge: Needs Prior to Discharge: None Post-Acute Discharge Plan: Chart reviewed and initial assessment completed. Met with pt at bedside. Pt is very [place]. Vision is limited as well. She gave permission to speak with her dtr, Maranda. Call placed to Maranda. Pt lives in at [facility] ([phone]). The assisted living assists with meals, meds, and some personal care as needed. Plan is to return to assisted living at [place]. Dtr will transport. Call placed to [facility]. Spoke with Mahsa in admissions. She requests [...] 19, 2023 TIME: 4:04 PM CONTACT #: [phone] [facility] 10-19-2023 Note HNO ID: [id number] Author: JACOB PALMER MD Service: Urology Author Type: Resident Type: Progress Notes Filed: 10/19/2023 06:55 Note Text: [facility] UROLOGY PROGRESS NOTE Name: Jesús Nolan Bed: G090 033/G090-33 Date: 10/19/2023 After Hours [facility] [place] [facility] Service Pager: [phone] ASSESSMENT Jesús Nolan is a 88 year [...] physician Dr Dada Esteves MD Urology PGY2 [facility] [place] For weekend or after hours issues [place] [phone] Active Problems Anemia of chronic disease, POA- [...] 4.3 CHLOR -- 106* 103 CO2 -- BUN -- 25* 30* CREAT -- 1.91* 2.11* GLUC -- 197* 129* Imaging Reviewed [facility] 10-18-2023 Note HNO ID: [id number] Author: JACOB PALMER MD Service: Urology Author Type: Resident Type: Progress Notes Filed: 10/18/2023 18:13 Note Text: [facility] UR[facility] PROGRESS NOTE Name: Jesús Nolan Bed: G090 033/G090-33 Date: 10/18/2023 After Hours [facility] Urology Service Pager: [phone] ASSESSMENT Jesús Nolan is a 88 year [...] physician Dr Dada Esteves MD Urology PGY2 [facility] [place] For weekend or after hours issues [place] [phone] Active Problems Anemia of chronic disease, POA- [...] 30* CREAT 2.11* GLUC 129* Imaging Reviewed [facility] 10-18-2023 Note HNO ID: [id number] Author: JON CERDA SRNA Service: ? Author [...] No SIGNATURE: CHANDA Carias PATIENT NAME: Jesús Gase DATE: October 18, 2023 TIME: 8:33 AM CSN: [id number] [facility] 10-18-2023 Note HNO ID: [id number] Author: JON CERDA SRNA Service: ? Author [...] No SIGNATURE: CHANDA Carias PATIENT NAME: Jesús Gase DATE: October 18, 2023 TIME: 8:32 AM CSN: [id number] [facility] 10-18-2023 Note HNO ID: [id number] Author: JON CERDA SRNA Service: ? Author [...] Successful intubation technique: video laryngoscopy Devices used: Automated Insights Endotracheal tube insertion site: oral Blade size: #3 ETT size (mm): 7.0 Measured from: gums Measurement (cm): 20 Cormack-Lehane Classification: grade I - full view of glottis Number of attempts at approach: 1 Failed airway: no Unrecognized esophageal intubation: no Airway not difficult SIGNATURE: CHANDA Carias PATIENT NAME: Jesús Nolan DATE: October 18, 2023 TIME: 8:27 AM CSN: [id number] [facility] 10-17-2023 Note HNO ID: [id number] Author: RONEL JUAN RN Service: Nursing Author [...] maranda and son in law at bedside. [facility] 10-17-2023 Note HNO ID: [id number] Author: RONEL JUAN RN Service: Nursing Author Type: Registered Nurse Type: Progress Notes Filed: 10/17/2023 11:01 [place]: [place] [phone] Urology: Jseús Nolan G90/33 patient is here as a direct admit. Awaiting orders. Ronel Juan RN [facility] 09-09-2023 Evaluation note Encounter Date Diagnosis Assessment Notes Aug, Acute UTI (ICD-10 - N39.0) Finish antibiotic prescribed at [facility]. 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 Eko Other [id number] NotePatient Outreach (UROLMN) JESÚS NOLAN ([id number]) 1935 F Date Time Provider Department 09/07/23 RICCO GARLAND During your visit today, we recorded the following information about you: Allergies As of Date: 09/07/2023 (No Known Allergies) Date Reviewed: 09/07/2023 Reviewed by: Karen Calvillo OCCA - Fully Assessed Visit Diagnosis:Screening for genitourinary condition [Z13.89] Order(s):URINALYSIS, REFLEX MICROSCOPIC [AMD6414] Order #: [id number]. #:[id number] Prescriptions as of 09/10/2023 - VITAMIN C [...] hip surgery [Z98.890] 09/07/2023 Encounter Status:Closed by THEVA PRODUSER on 09/10/23[facility] 09-07-2023 NoteHNO ID: [id number] Author: Ricco Garland MD Service: ? Author [...] hardly hear me. Though not listed in [facility], patient's daughter indicates Dr. Harsh [...] based on size, location, hounsfield units and wdjl-ah-ybaft distance: 0% 3. Ureteroscopy - risks of [...] with more than 50% of the total uzmc-es-seee time of the visit devoted to patient counseling/coordination of care. Ricco Garland MD, FACS Director, Surgical Stone Disease, [facility] Urologic [place] vessel operator, [facility] [employer] Pager [phone] 09/07/2023[facility]09-15-2023 Evaluation note* Encounter Date Diagnosis Assessment Notes Treatment Notes Treatment Clinical Notes May, Bilateral impacted cerumen (ICD-10 - H61.23) Eko Other 08-30-2023 Evaluation note* Encounter Date Diagnosis [...] chronic disease (ICD-10 - D63.8) As above. Eko Other Evaluation noteNo InformationNort YieldMo Other Evaluation note* Diagnosis Onset Date Resolution Status Acute metabolic encephalopathy acute PRESTON (acute kidney injury) ac debi Constipation acute Dementia acute Hallucinations acute Hypertension acute Right nephrolithiasis acute Staghorn calculus acute UTI (urinary tract infection) acute [facility] Work Phone: Evaluation note* Diagnosis Hydronephrosis with urinary obstruction due to renal calculus- Primary Nephrolithiasis Calculus of kidney [facility]* Diagnosis Nephrolithiasis- Primary Calculus of kidney Nephrolithiasis Calculus of kidney documented in this encounter [facility]* Diagnosis Nephrolithiasis Calculus of kidney documented in this encounter [facility] note* Diagnosis Nephrolithiasis Calculus of kidney documented in this encounter [facility] note* Diagnosis Nephrolithiasis- Primary Calculus of kidney Hydronephrosis, unspecified hydronephrosis type documented in this encounter [facility] note* Diagnosis Nephrolithiasis- Primary Calculus of kidney documented in this encounter [facility] note* Diagnosis Screening for genitourinary condition Screening for other and unspecified genitourinary condition documented in this encounter [facility] noteNo assessment information [facility] Work Phone: History general Narrative - Reported* Type Description Date [...] History CHOLECYSTECTOMY Hospitalization History SEE SURGICAL HX A[employer] Other Reason for referral (narrative)* Diagnostic Procedure Only (Routine) - Pending Review Specialty Diagnoses / Procedures Referred By Megha frederick Referred To Contact MOLECULAR & FUNCTIONAL IMAGING Diagnoses Hydronephrosis with urinary obstruction due to renal calculus Procedures NM RENAL FLOW/FXN W PHARM KIDNEY IMG MORPHOLOGY VASCULAR FLOW 1 W/RX Ricco Garland MD [address] [phone] Molecular & Functional Imaging [address] [place] [address] Referral ID Status Reason Start Date Expiration Date Visits Requested Visits Authorized [id number] Pending Review Auto-Generat ed Referral 10/07/2024 1 1 [facility] for referral (narrative)* Diagnostic Procedure Only (Routine) - Closed Specialty Diagnoses / Procedures Referred By Contac t Referred To Contact XR IMAGING Diagnoses Nephrolithiasis Procedures XR ABDOMEN 3V KUB W/OBLIQUES RADIOLOGIC EXAM ABDOMEN 3+ VIEWS Ricco Garland MD [address] [place] [address] Xr Imaging [facility]95 Referral ID Status Reason Start Date Expiration Date V isits Requested Visits Authorized [id number] Closed Auto-Generate d Referral 10/27/2023 11/25/2024 1 1 [facility] for referral (narrative)* Diagnostic Procedure Only (Routine) - Closed Specialty Diagnoses / Procedures Referred By Contac t Referred To Contact US IMAGING Diagnoses Nephrolithiasis Procedures US KIDNEY/BLADDER US RETROPERITONEAL REAL TIME W/IMAGE COMPLETE Ricco Garland MD [address] [id number] Us Imaging [facility]95 Referral ID Status Reason Start Date Expiration Date V isits Requested Visits Authorized [id number] Closed Auto-Generate d Referral 10/27/2023 11/25/2024 1 1 T [facility] for referral (narrative)* Diagnostic Procedure Only (Routine) - Authorized Specialty Diagnoses / Procedures Referred By Contac t Referred To Contact XR IMAGING Diagnoses Nephrolithiasis Procedures XR ABDOMEN 3V KUB W/OBLIQUES RADIOLOGIC EXAM ABDOMEN 3+ VIEWS Mark Cesar PA-C [address] [phone] [place] [address] Referral ID Status Reason Start Date Expiration Date Visits Requested Visits Authorized [id number] Authorized Auto-Generat ed Referral 12/06/2023 01/04/2025 1 1 * Diagnostic Procedure Only (Routine) - Authorized Specialty Diagnoses / Procedures Referred By Contac t Referred To Contact US IMAGING Diagnoses Nephrolithiasis Procedures US KIDNEY/BLADDER US RETROPERITONEAL REAL TIME W/IMAGE COMPLETE Mark Cesar PA-C [address] [phone] [place] [address] Referral ID Status Reason Start Date Expiration Date Visits Requested Visits Authorized [id number] Authorized Auto-Generat ed Referral 12/06/2023 01/04/2025 1 1 [facility] for visit Narrative* Diagnostic Procedure Only (Routine) - Closed Specialty Diagnoses / Procedures Referred By Contac t Referred To Contact US IMAGING Diagnoses Nephrolithiasis Procedures US KIDNEY/BLADDER US RETROPERITONEAL REAL TIME W/IMAGE COMPLETE Ricco Garland MD [address] [phone] [place] [address] Referral ID Status Reason Start Date Expiration Date V isits Requested Visits Authorized [id number] Closed Auto-Generate d Referral 10/27/2023 11/25/2024 1 1 [facility] Advance Directives No Advanced Directives Records FoundDocuments on File Type Date Recorded Patient Is Manager Expl anation Advance Directives and Living Will Power of Geology Instructor Documents on File Type Date Recorded Patient Is Manager Expl anation Advance Directives and Living Will Power of Geology Instructor Latest Code Status on File Code Status Date Activated Date Inactivated Comments DNR-CCA 04/05/2020 7:40 AM Full Code 04/02/2020 11:53 PM 04/05/2020 7:40 AM Documents on File Type Date Recorded Patient Is Manager Expl anation Advance Directives and Livin g Will Advance Directives and Livin g Will 04/09/2020 4:57 PM Power of Geology Instructor Power of Geology Instructor 04/09/2020 4:57 PM Latest Code Status on File Code Status Date Activated Date Inactivated Comments DNR-CCA 04/05/2020 7:40 AM 04/06/2020 2:39 PM Full Code 04/02/2020 11:53 PM 04/05/2020 7:40 AM Documents on File Type Date Recorded Patient Is Manager Expl anation ACP-Advance Directive ACP-Advance Directive 04/09/2020 4:57 PM ACP-Power of Geology Instructor ACP-Power of Geology Instructor 04/09/2020 4:57 PM DNR Documentation 04/09/2020 4:57 PM Latest Code Status on File Code Status Date Activated Date Inactivated Comments Full Code 05/10/2020 3:57 PM Full Code 05/10/2020 10:16 AM 05/10/2020 3:48 PM DNR-CCA 04/05/2020 7:40 AM 04/06/2020 2:39 PM Documents on File Type Date Recorded Patient Is Manager Expl anation ACP-Advance Directive ACP-Advance Directive 04/09/2020 4:57 PM ACP-Do Not Resuscitate 05/16/2020 1:04 PM ACP-Power of Geology Instructor ACP-Power of Geology Instructor 04/09/2020 4:57 PM DNR Documentation 04/09/2020 4:57 PM Latest Code Status on File Code Status Date Activated Date Inactivated Comments Full Code 05/10/2020 3:57 PM 05/15/2020 9:57 PM Full Code 05/10/2020 10:16 AM 05/10/2020 3:48 PM DNR-CCA 04/05/2020 7:40 AM 04/06/2020 2:39 PM Documents on File Type Date Recorded Patient Is Manager Expl anation ACP-Advance Directive ACP-Advance Directive 04/09/2020 4:57 PM ACP-Advance Directive 06/13/2020 10:59 AM ACP-Do Not Resuscitate 05/16/2020 1:04 PM ACP-Do Not Resuscitate ACP-Do Not Resuscitate 06/13/2020 10:59 AM ACP-Power of Geology Instructor ACP-Power of Geology Instructor 04/09/2020 4:57 PM DNR Documentation 04/09/2020 4:57 PM Documents on File Type Date Recorded Patient Is Manager Expl anation ACP-Advance Directive ACP-Do Not Resuscitate ACP-Power of Geology Instructor ACP-Advance Directive 06/13/2020 10:59 AM ACP-Do Not Resuscitate 06/13/2020 10:59 AM ACP-Do Not Resuscitate 05/16/2020 1:04 PM ACP-Advance Directive 04/09/2020 4:57 PM ACP-Do Not Resuscitate 04/09/2020 4:57 PM ACP-Power of Geology Instructor 04/09/2020 4:57 PM Advance Directive Response Recorded Date/ Time Advance Directives No August 31, 2023 8:19pm Advance Directive Response Recorded Date/ Time Advance Directives No August 31, 2023 9:19pm Reason for Referral Status Reason Specialty Diagnoses / Procedures Referre d By Contact Referred To Contact Open Radiology Diagnoses Chronic kidney disease, stage IV (severe) ([facility]) Procedures US RENAL COMPLETE Ibkameronselena Dilan U, DO Status Reason Specialty Diagnoses / Procedures Referred By Contact Referred To Contact Open Specialty Services Required Physical Therapy Diagnoses General weakness Ricco Sánchez MD [address] [place] [address], [place] [address] Specialty Diagnoses / Procedures Referred By Contac t Referred To Contact CT IMAGING Diagnoses Nephrolithiasis Procedures CT FLANK WO IVCON CT ABD & PELVIS W/O CONTRAST OMark Billingsley PA-C [address] [place] [address] [place] [address] Referral ID Status Reason Start Date Expiration Date Visits Requested Visits Authorized [id number] Pending Review Auto-Generat ed Referral 12/08/2023 01/06/2025 1 1 Assessments Diagnosis Chronic kidney disease, stage IV (severe) (HCC) Chronic kidney disease, Stage IV (severe) Diagnosis Closed displaced intertrochanteric fracture of left femur, initial encounter ([facility]) Diagnosis Pain of left hip joint Diagnosis [...] Care Everywhere. * Hip Fracture: Surgery: Post-op (Kazakh) documented in this encounter* Discharge Instr - [...] at most local grocery stores, pharmacies, and Biopharmacopae-stores. ? If you have any questions about [...] Hospital Unit/Room#: 0311/0311-01 Discharging Unit Phone Number: [phone] Emergency Contact: Extended Emergency Contact Information Primary Emergency Contact: Isaias Nolan Address: [address] [place] [address] Relation: Spouse Secondary Emergency Contact: Maranda Da [...] Dependent Dressing Dependent Toileting Dependent Feeding Independent Hedge Fund Accountant Assisted Med Delivery whole Wound Care Documentation [...] Readmission: 15 Discharging to Facility/ Agency Name: [facility] Address:[address] Dialysis Facility (if applicable) Name: Address: Dialysis Schedule: Phone: Fax: Graduate Assistant/Salesperson Meats signature: PHYSICIAN SECTION Prognosis: {Prognosis:4524839131} Condition at Discharge: { Patient Condition:324623012} Rehab Potential (if transferring to Rehab): {Prognosis:7558778251} Recommended Labs or Other Treatments After Discharge: Physician Certification: I certify the above information and transfer of Jesús Nolan is necessary for the continuing treatment of the diagnosis listed and that she requires Chcf Facility for greater 30 days. Update Admission H&P: {CHP DME Changes in HandP:935080363} PHYSICIAN SIGNATURE: {Esignature:623725346} documented in this encounter* Discharge Instr - [...] Information Primary Emergency Contact: Isaias Nolan Address: [address] [place] [address] [address] [place] [address] Relation: Spouse Secondary Emergency Contact: Maranda Da Silva Relation: Child Past Surgical History: Past Surgical History: Procedure Laterality Date CHOLECYSTECTOMY HYSTERECTOMY JOINT REPLACEMENT knee REVISION TOTAL HIP ARTHROPLASTY Left 05/10/2020 HARDWARE REMOVAL LEFT HIP, CONVERSION TO LEFT TOTAL HIP performed by Chele Lagos MD at [facility] OR Immunization History: There is no [...] Assisted Dressing Assisted Toileting Assisted Feeding Independent Hedge Fund Accountant Assisted Med Delivery whole Wound Care Documentation [...] Readmission: 20 Discharging to Facility/ Agency Name: [facility] Address: [address] [place] [id number] Dialysis Facility (if applicable) Name: Address: Dialysis Schedule: Phone: Fax: Graduate Assistant/Salesperson Meats signature: ICIAN SECTION Prognosis: Fair Condition at Discharge: Stable Rehab Potential (if transferring to Rehab): Fair Recommended Labs or Other Treatments After Discharge: n/a Physician Certification: I certify the above information and transfer of Jesús Nolan is necessary for the continuing treatment of the diagnosis listed and that she requires Chcf Facility for greater 30 days. Update Admission [...] not made for you at discharge, call [phone] ([place] office) or [phone] ([place] office) to schedule an appointment for 8 [...] Everywhere. * Hip Replacement: Posterior: Precautions: Post-op (Kazakh) * Hip Replacement Surgery: Posterior: Post-op (Kazakh) documented in this encounter* Instructions* Leta Irwin RN - 05/30/2020 Wound Management Patient Discharge Instructions CALL [phone] for questions regarding care of your wounds. [...] Put on bandages as your doctor or engineering specialist technician says. Keep healthy tissue around the sore [...] Where can you learn more? Go to [email or web address] and sign in to your [employer] account. Enter F114 in the Search Health Information box to learn more about Pressure Injuries: Care Instructions. If you do not have an account, please click on the Sign Up Now link. Current as of: November 29, 2019 Content Version: .5 [employer]. Care instructions adapted under license by [employer]. If you have questions about a medical condition or this instruction, always ask your healthcare professional. [employer] disclaims any warranty or liability for your use of this information. Wound Management Patient Discharge Instructions CALL [phone] for questions regarding care of your wounds. [...] Department Center 06/27/2020 10:45 AM NORAH CruzZ KARLY Laurent Nutrition Therapy Recommendations- 1. Continue to have [...] 06/27/2020 Wound Management Patient Discharge Instructions CALL [phone] for questions regarding care of your wounds. [...] 07/18/2020 Wound Management Patient Discharge Instructions CALL [phone] for questions regarding care of your wounds. [...] Time Provider Department Center 08/15/2020 10:30 AM ONRAH Cruz Comments: We hope we gave you VERY GOOD care today! documented in this encounter* Instructions* Leta Irwin RN - 09/12/2020 Wound Management Patient Discharge Instructions CALL [phone] for questions regarding care of your wounds. [...] 08/15/2020 Wound Management Patient Discharge Instructions CALL [phone] for questions regarding care of your wounds. [...] 10:45 AM Glenn Martínez DPM MTHZ [facility] [place] Comments: We hope we gave you VERY GOOD care today! documented in this encounter Hospital Course Note Admission Information Bell t: Jesús Cha Ovidio : 1935 Admission date: 02/09/2020 [...] know that pt is discharged back to [facility]. Voicemail left for to return call. * [...] 04/05/2020 7:53 AM EDT Occupational Therapy Facility/Department: [facility] Daily Treatment Note NAME: Jesús Nolan : 1935 Date of Service: 04/05/2020 Discharge Recommendations: Continue to assess pending progress, Subacute/Chcf Facility, Patient would benefit from continued therapy [...] Pt uncooperative with assessment. Eyes closed upon ad writer entering room, easily aroused. Pt yells at ad writer to leave her alone. Pt tachypneic withrespirations at 22. Lung sounds clear upon auscultation. Pt oriented to person, disoriented x3. Pressure sores to bilateral heels. Elevated with pillows at this time. Pt yelling nonsensical states throughout assessment. Resting with eyes closed and call light and belongings within reach. Will continue to monitor. * Alicia Miller, MARYJANE - 04/04/2020 5:17 PM EDT Patient has not eaten any meals today. Timber Management Professor attempted to help feed the patient. Patient refused. * Robinson Ellsworth, MARBLE HELPER - 04/04/2020 2:38 PM EDT Physical Therapy Facility/Department: [facility] Daily Treatment Note NAME: Jesús Nolan : 1935 Date of Service: 04/04/2020 Discharge Recommendations: Continue to assess pending progress, Subacute/Chcf Facility, ECF with PT, Patient would benefit [...] is approved by insurance to return to [facility] home. SAAD Hough * Caprice Echeverria RN - [...] Tells me that she has been at [facility] for 6 weeks now for therapy after a fractured hip. Her confusion has gradually gotten worse, more so lately. Support given. states that she has been unable to walk lately, which is the reason she was brought to the hospital. Admitted with cellulitis. Spiritual screening done. Tells me that the attraction attendant visited with them yesterday. Denies any spiritual needs at this time. Emotional support given. DNR paper order form to be placed on paper chart for signature. Will continue to follow and support. Caprice Echeverria RN, [facility] Palliative Care Nurse Coordinator 04/04/2020 11:24 AM * Alicia Miller RN - 04/04/2020 9:04 AM EDT Patient resting quietly in bed. No complaints at this time. Patient tolerated medications well. * Alicia Miller RN - 04/04/2020 8:45 AM EDT Patient refuses breakfast at this time. * Natalie Guzman PTA - 04/04/2020 8:39 AM EDT Physical Therapy Facility/Department: [facility] Daily Treatment Note NAME: Jesús Nolan : 1935 Date of Service: 04/04/2020 Discharge Recommendations: Continue to assess pending progress, Subacute/Chcf Facility, [facility] with PT, Patient would benefit from continued [...] 0816 Time Out 0839 Minutes 23 Natalie uGzman PTA * Ricco Sánchez MD - 04/04/2020 [...] like for her mother to return to [facility] following this hospitalization. Daughter is aware, per this ad writer, that [facility] does have Covid positive resident in their facility at this time. Referral made to [facility] via telephone voicemail message left for Kapil Orta re:above. [facility] will begin pre-cert and notify TAB CUTTER when Patient is able to return. SAAD Koroma 04/03/2020 * Iza Hein LSW - 04/03/2020 3:15 PM EDT Met with Patient to discuss discharge planning. Unable to complete assessment due to Patient confusion. Telephone voicemail message left for Patient's spouse and for her daughter. Spoke with Admission's home office representative at [facility] where Patient was residing at the time ofher hospitalization. She states that [facility] will take Patient back if she or her family chooseto send her back at this time with the knowledge that [facility] has Covid positive Patient in their facility at this time. TAB CUTTER will await a telephone call back from Patient's family to determine discharge planning goals. SAAD Koroma 04/03/2020 * Gretchen Chapa PTA - 04/03/2020 3:09 PM EDT [facility] Inpatient/Observation/Outpatient Rehabilitation Date: 04/03/2020 Patient Name: Jesús Cha Ovidio [x] Inpatient Acute/Observation [] Outpatient : 1935 [] Pt no showed for scheduled appointment [] Pt refused/declined therapy at this time due to: [x] Pt cancelled due to: [] No Reason Given [] Sick/ill [x] Other: Physical therapy treatment was attempted at 2:40pm. Patient demonstrating increased agitation. Consulted with Fanny, treatment withheld. Gretchen Chapa, MARBLE HELPER Date: 04/03/2020 * Astrid Alan, PT - 04/03/2020 9:30 AM EDT Physical Therapy Facility/Department: [facility] Initial Assessment NAME: Jesús Nolan : 1935 Date of Service: 04/03/2020 Discharge Recommendations: Continue to assess pending progress, Subacute/Chcf Facility, ECF with PT, Patient would benefit [...] History Lives With: Alone Type of Home: Facility([facility]) Home Layout: One level Home Equipment: Rolling walker ADL Assistance: Needs assistance Homemaking Assistance: Needs assistance IADL Comments: Limited hx provided by pt d/t impaired cognition. Pt resided at [facility], butunable to determine what length of time. Per EMR, pt went to [facility] for rehab following L hip fx. Cognition [...] 5. Fluid Accumulation-Mild fluid accumulation, Extremities 6. Dam Tender Strength-Not measured Recent Labs 04/02/20 1445 04/02/20200404/03/20 0555 NA 137 139 140 K 2.9* 3.4* 3.5* CL 92* 96* 96* CO2 29 28 26 BUN 37* 35* 30* CREATININE 1.41* 1.33* 1.17* GLUCOSE 200* 149* 157* GFR Lab Results Component Value Date LABALBU 3.3 03/25/2020 LABALBU 4.4 02/19/2012 Nutrition Risk Level: Moderate Nutrient Needs: Estimated Daily Total Kcal: 0153-7616 Estimated Daily Protein (g): 55-65 Estimated Daily [...] Usual Body Wt: 159 lb (72.1 kg) I[place]wich Body Wt: 100 lb (45.4 kg), % [place]wich Body 158% BMI Classification: BMI 30.0 - 34.9 Obese Class I Nutrition Interventions: Continue current diet Continued Inpatient Monitoring, Education Completed Nutrition Evaluation: Evaluation: Goals set Goals: >75% PO Monitoring: Meal Intake, Supplement Intake, Weight, Pertinent Labs, Chewing/Swallowing, Patient/Family Education, Constipation Contact Number: [phone] * Sonali Avitia [facility] - 04/03/2020 8:11 AM EDT Piperacillin-Tazobactam Extended [...] You, Sonali Avitia04/03/20208:11 AM * Vernell Stephenson [facility] - 04/03/2020 7:29 AM EDT [facility] Department of Pharmacy Pharmacy Renal Adjustment Note [...] ml/min. Vernell Stephenson,04/03/2020,7:29 AM * Vernell Stephenson [facility] - 04/03/2020 7:26 AM EDT [facility] Department of Pharmacy Pharmacy Renal Adjustment Note [...] Garcia RN - 04/03/2020 5:58 AM EDT Timber Management Professor and 2 RNs came change's patient's bed linen, gown, and brief at this time. Corrine care was performed. Patient is suddenly a lot more pleasant, cooperative, and able to hold a conversation. Patient is now orientated to person, birthday and place. Patient states she does not know the month. Timber Management Professor re orientated patient to month. Timber Management Professor is going to attempt to regain IV access. Leads were also off and reapplied. * Vicki Garcia RN - 04/03/2020 5:40 AM EDT Director Of Mobile Marketing alerted ad writer that patient had removed her brief and pull out her IV at this time. * Vicki Garcia RN - 04/03/2020 2:45 AM EDT Patient refused being repositioned at this time. Don't touch me, patient stated. * Vicki Garcia RN - 04/03/2020 2:28 AM EDT Navigator completed to ad writer's best ability. Multiple items of the [...] to leave the room at this time. Timber Management Professor will continue to monitor. * Vicki Garcia [...] normal saline continuous at this time. * Vikci Garcia RN - 04/03/2020 12:43 AM EDT Timber Management Professor attempted to give verpamil, xanax and tylenol crushed in pudding at this time. Patient refused, patient smacked ad writer and swore at ad writer and with ad writer's final attempt after explaining it had pain medication in the pudding to help her feel better, patient smacked the spoon out of ad writer'antonio and onto the floor, stating it smells like shit and I dont want no pills. Timber Management Professor was able to coin machine collector supervisor patient to IV fluids however patient was mad at ad writer for doing so and swatted at ad writer. * Vicki Garcia RN - 04/03/2020 12:28 AM EDT Patient stated get the hell out of here and that myself and Valerie RN are a pain in the ass and need to get out. Timber Management Professor is attempting to give medications at this time. * Vicki Garcia RN - 04/03/2020 12:10 AM EDT Heart monitor applied at this time by ad writer. While applying heart monitor tabs patient was verbally agressive stating leave me alone, stop touching me and will you go downstairs and stay down there!? * Alan Jalloh, [facility] - 04/03/2020 12:10 AM EDT Pharmacy Note Renal Dose Adjustment Jesús Nolan is a 84 y.o. female. Pharmacist assessment of renally cleared medications. Recent Labs 04/02/20 1445 04/02/202004 BUN 37* 35* Recent Labs 04/02/20 1445 04/02/202004 CREATININE 1.41* 1.33* CrCl cannot be calculated (Unknown ideal weight.). Estimated CrCl using [place]wich Body Weight: 23.4 mL/min (based on IBW [...] every 12 hours. Alan Jalloh [facility] 04/03/2020 12:10 AM * Vicki Garcia RN - 04/03/2020 12:03 AM EDT Patient is disorientated x4. Patient stated I do not have a name. Did not respond when asked whenpatient was born multiple times. Patient stated we're at Dataupiasd's house when replying to location and stated no what was the month. Patient unable to answer questions at this time due to disorientation. ER nurses states hasnot seen weeks and was unable to speak on her care. Patient is from [facility], ad writer will review the paperwork sent over by [facility]. Patient is resting with eyes closed at this time, patient is confused and opens eyes occasional when spoken to. * Alan Jalloh [facility] - 04/03/2020 12:03 AM EDT Pharmacy Note Renal Dose Adjustment Jesús Nolan is a 84 y.o. female. Pharmacist assessment of renally cleared medications. Recent Labs 04/02/20 1445 04/02/202004 BUN 37* 35* Recent Labs 04/02/20 1445 04/02/202004 CREATININE 1.41* 1.33* CrCl cannot be calculated (Unknown ideal weight.). Estimated CrCl using [place] Body Weight: 23.42 mL/min (based on IBW [...] subcutaneously once daily. Alan Jalloh [facility] 04/03/2020 12:03 AM * Vicki Garcia RN - 04/02/2020 11:20 PM EDT Patient arrived to [facility] floor to room 311 at from ER via bed at this time. Patient was moved over to bed via flat sheet with 4 nurses. Patient unable to assist. documented in this encounter* Nirmala Lanier RN - 05/15/2020 3:50 PM EDT Report called to RN at [facility] in [place]. Facility will accept patient after 10pm when LACPcan pick her up. * Constantin Escobedo MD - 05/15/2020 11:58 AM EDT Hospitalist Progress Note Patient: Jesús Nolan Unit/Bed:[address] [place] [address] Date of : 1935 Acct: [id number] PCP: Justino Dhaliwal DO Date of Admission: [...] hypertension Hospital Course: Initial admission HPI by consultant intern physician reviewed as below: 84-year-old female with [...] [] Rehab [] Psych [] SNF [] Residential Care Facility [] Other- Code Status: Full Code PT/OT Eval Status: * Shahzad Katarina Semaj, LIBRARY ACQUISITIONS TECHNICIAN - FENCE SETTER - 05/15/2020 11:39 AM EDT Orthopaedic Progress [...] Bettie Chavez PTA - 05/14/2020 12:06 PM EDT [facility] INPATIENT PHYSICAL THERAPY DAILY NOTE [facility] 7K - --A Time In: 1125 Time Out: 1149 Minutes: [...] Function: Lives With: Alone Type of Home: Facility([facility] x6-7 months) ADL Assistance: Needs assistance(recently requiring assist with all at [facility]) Homemaking Assistance: (dependent on staff) Ambulation Assistance: Needs assistance Transfer Assistance: Needs assistance Additional Comments: Pt reports being a long time since she has walked, reports living at [facility] x6-7 months, was starting to work on [...] with functional mobility. Functional Outcome Measures: Completed AM-[facility] Inpatient Mobility Raw Score : 8 AM-[facility] Inpatient T-Scale Score : 28.52 ASSESSMENT: Assessment: Patient progressing toward established goals. Activity Tolerance: Patient tolerance of treatment: fair. Pt pleasantly confused during session. Equipment Recommendations:Equipment Needed: No Discharge Recommendations: Subacute/Chcf Facility Plan: Times per week: 4-5x O [...] A x 2 for increased functional mobility. FDC goals Time Frame for FDC goals : NA due to short length of stay. Following session, patient left in safe position with all fall risk precautions in place. * Chele Lagos MD - 05/14/2020 9:42 AM EDT Physician Progress Note PATIENT: JESÚS NOLAN CSN #: [id number] : 1935 ADMIT DATE: 05/10/2020 9:36 AM [...] you! Howard Darling, STEVON,RN, CRCR RN Clinical Car Supervisor P: [phone] Options provided: -- Acute blood loss anemia -- Postoperative acute blood loss anemia -- Dilutional anemia -- Other - I will add my own diagnosis -- Disagree - Not applicable / Not valid -- Disagree - Clinically unable to determine / Unknown -- Refer to Clinical Documentation Reviewer PROVIDER RESPONSE TEXT: This patient has postoperative acute blood loss anemia. Query created by: Hoawrd Darling on 05/13/2020 12:33 PM Electronically signed by: CHELE LAGOS MD 05/14/2020 9:41 AM * Katarina Pike, LIBRARY ACQUISITIONS TECHNICIAN - FENCE SETTER - 05/14/2020 8:35 AM EDT Orthopaedic Progress [...] EDT Hospitalist Progress Note Patient: Jesús Nolan Unit/Bed:7-19/019-A Date of : 1935 Acct: [id number] PCP: Justino Dhaliwal DO Date of Admission: [...] reviewed in chart review snap shot in [facility] CC: Consult for medical management HPI: Initial admission HPI by consultant intern physician reviewed as below: 84-year-old female with [...] with concerns. Please excuse my TYPOS! * ShahzadKatarina, LIBRARY ACQUISITIONS TECHNICIAN - FENCE SETTER - 05/13/2020 11:30 AM EDT Orthopaedic Progress [...] does not include documentation. * Bettie Chavez MARBLE HELPER - 05/13/2020 9:29 AM EDT [facility] - 7K-19/019-A Time [...] Function: Lives With: Alone Type of Home: Facility([facility] x6-7 months) ADL Assistance: Needs assistance(recently requiring assist with all at [facility]) Homemaking Assistance: (dependent on staff) Ambulation Assistance: Needs assistance Transfer Assistance: Needs assistance Additional Comments: Pt reports being a long time since she has walked, reports living at [facility] x6-7 months, was starting to work on [...] with functional mobility. Functional Outcome Measures: Completed AM-[facility] Inpatient Mobility without Stair Climbing Raw Score : 8 AM-[facility] Inpatient without Stair Climbing T-Scale Score : 30.65 ASSESSMENT: Assessment: Patient progressing toward established goals. Activity Tolerance: Patient tolerance of treatment: good. Pt able to get up with less assist this date. Equipment Recommendations:Equipment Needed: No Discharge Recommendations: Subacute/Chcf Facility Plan: Times per week: 4-5x O [...] A x 2 for increased functional mobility. terminal operator goals Time Frame for FDC goals : NA due to short length of stay. Following session, patient left in safe position with all fall risk precautions in place. * Saleem Gomes MD - 05/13/2020 8:25 AM EDT Hospitalist Progress Note Patient: Jesús Nolan Unit/Bed:7K-19/019-A Date of : 1935 Acct: [id number] PCP: Justino Dhaliwal DO Date of Admission: [...] reviewed in chart review snap shot in [facility] CC: Consult for medical management HPI: Initial admission HPI by consultant intern physician reviewed as below: 84-year-old female with [...] Nolan Unit/Bed:7K-19/019-A Date of : 1935 Acct: [id number] PCP: Justino Dhaliwal DO Date of Admission: [...] reviewed in chart review snap shot in [facility] CC: Consult for medical management HPI: Initial admission HPI by consultant intern physician reviewed as below: 84-year-old female with [...] Tinajero, PT - 05/11/2020 2:37 PM EDT [facility] INPATIENT PHYSICAL THERAPY EVALUATION [facility] 7K - 7K-19/019-A Time In: [...] History: Lives With: Alone Type of Home: Facility([facility] x6-7 months) ADL Assistance: Needs assistance(recently requiring assist with all at [facility]) Homemaking Assistance: (dependent on staff) Ambulation Assistance: Needs assistance Transfer Assistance: Needs assistance Additional Comments: Pt reports being a long time since she has walked, reports living at [facility] x6-7 months, was starting to work on [...] with functional mobility. Functional Outcome Measures: Completed AM-[facility] Inpatient Mobility without Stair Climbing Raw Score : 6 AM-[facility] Inpatient without Stair Climbing T-Scale Score : [...] FOLLOW UP: Yes Discharge Recommendations: Discharge Recommendations: Subacute/Chcf Facility Patient Education: PT Education: PT Role, [...] A x 2 for increased functional mobility. FDC goals Time Frame for terminal operator goals : NA due to short length of stay. Following session, patient left in safe position with all fall risk precautions in place. * Marcia Escalera, OT - 05/11/2020 10:44 AM EDT [facility] INPATIENT OCCUPATIONAL THERAPY [facility] ORTHOPEDICS 7K EVALUATION Time: Time In: 958 Time Out: 1035 Timed Code Treatment Minutes: 26 Minutes Minutes: 36 Date: 05/11/2020 Patient Name: Jesús Nolan, Gender: female : 1935 (84 y.o.) Referring Practitioner: Sylvia Monte, LIBRARY ACQUISITIONS TECHNICIAN - FENCE SETTER Diagnosis: periprosthetic hip fracture Additional Pertinent Hx: [...] History: Lives With: Alone Type of Home: Facility([facility] x6-7 months) ADL Assistance: Needs assistance(recently requiring assist with all at [facility]) Homemaking Assistance: (dependent on staff) Ambulation Assistance: Needs assistance Transfer Assistance: Needs assistance Additional Comments: Pt reports being a long time since she has walked, reports living at [facility] x6-7 months, was starting to work on [...] Standing Balance: Maximum Assistance, X 2. within [facility] BED MOBILITY: Supine to Sit: Moderate Assistance with cues and inc time TRANSFERS: Sit to Stand: Maximum Assistance, x3, pt unable to clear paddles on [facility] without 3rd person. from EOB Stand to Sit: Maximum Assistance, X 2. to recliner from [facility] FUNCTIONAL MOBILITY: Assistive Device: romario stedy Assist [...] independence and quality of life. Discharge Recommendations: Subacute/Chcf Facility, Patient would benefit from continued therapy [...] Nolan Unit/Bed:7K-19/019-A Date of : 1935 Acct: [id number] PCP: Justino Dhaliwal DO Date of Admission: [...] reviewed in chart review snap shot in [facility] CC: Consult for medical management HPI: Initial admission HPI by consultant intern physician reviewed as below: 84-year-old female with [...] concerns. Please excuse my TYPOS! * Devyn Mcgovern, RN - 05/10/2020 2:55 PM EDT 1353 [...] AM EDT The patient arrived with a child care lead teacher. Patient in a wheelchair. Patient was transferred [...] Martínez DPM - 06/13/2020 10:45 AM EDT [facility] Progress Note and Procedure [...] Off loading MRR: ID consult ; all [facility] Health Bill Wound/Ulcer Pain Timing/Severity: constant, [...] HIP performed by Chele Lagos MD at [facility] OR FAMILY HISTORY History reviewed. No [...] Z96.649 Decubitus ulcer of heel, left, unstageable ([facility]) L89.620 REC: excisional debridement / culture Specialized [...] Wound Surface Area (cm^2) 2.64 cm^2 05/30/20 131 Wound Assessment Black;Red 05/30/20 1318 Drainage Amount None 05/30/20 1318 Odor None 05/30/20 1318 Margins Attached edges;Defined edges 05/30/201317 Corrine-wound Assessment Clean;Dry;Intact 05/30/208 Culture Taken No 05/30/20 1346 Number of [...] (cm^3) 0.99 cm^3 05/30/20 1346 Wound Assessment [place];Slough;Yellow 05/30/20 1346 Drainage Amount Moderate 05/30/20 1346 Drainage Description Serosanguinous 05/30/20 1318 Odor None 05/30/20 1318 Corrine-wound Assessment Clean;Dry;Intact 05/30/20 1318 Non-staged Wound Description Full thickness 05/30/20 1346 [place]%Wound Bed 50 05/30/20 1346 Yellow%Wound Bed 50 [...] Weight- Weight: 161 lb 8 oz (73.3 kg)([facility] weight) IBW- 115 # %IBW- 141 % [...] Needs- BEE- 1162 kcal Total Calorie Needs- 7016-1959 (25-28 kcal/kg) Total Protein Needs- 78-94 (1.5-1.8 [...] States she eats too much. Staff from [facility] Pt is on a daily MVI w/minerals [...] nephrolithiasis Staghorn calculus UTI (urinary tract infection) Chief Complaint Amb Documentation Amb Documentation Amb Documentation Ear pain Additional Source Comments Reason for Visit (unrecogniz [...] weaknes s, pain in joints. 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 Displaced intertrochanteric fracture of left femur, subsequent encounter for closed fracture with routine healing LEFT HIP PERIPROSTHETIC FEMUR FX WITH COMPLETE DISPLACEMENT Procedures MN REMOVAL SUPERFICIAL IMPLANT MN CONV PREV HIP SURG TO TOT HIP ARTHROPLAS HARDWARE REMOVAL LEFT HIP, CONVERSION TO LEFT TOTAL HIP hCele Lagos MD [address] [place] [address] [facility] Reason Comments Wound Check Bilateral heels Reason Comments Wound Check bilateral heels Reason Comments Wound Check bilateral heel/leg w ounds Reason Comments Wound Check left heel Reason Comments Wound Check Left heel Reason Comments Wound Check LEFT HEEL AND CONTRACTS MANAGER RIOR LOWER LEG Reason Comments Radio Gen A21 Specialty Diagnoses / Procedures Referred By Contac t Referred To Contact XR IMAGING Diagnoses Nephrolithiasis Procedures XR ABDOMEN 3V KUB W/OBLIQUES RADIOLOGIC EXAM ABDOMEN 3+ VIEWS Ricco Garland MD [address] [place] [address] [place] [address] Referral ID Status Reason Start Date Expiration Date V isits Requested Visits Authorized [id number] Closed Auto-Generate d Referral 10/27/2023 11/25/2024 1 1 Reason Comments Post-Op Visit Reason Comments Results Reason Comments Appointment Reason Comments Results INFORMATION SOURCE (unrecogn ized section and content) DATE CREATED AUTHOR 05/22/2020 [facility] DATE CREATED AUTHOR AUTHOR'S ORGANIZ ATION 08/29/2020 [facility] DATE CREATED AUTHOR AUTHOR'S ORGANIZ ATION 04/20/2021 [facility] DATE CREATED AUTHOR AUTHOR'S ORGANIZ ATION 10/15/2021 [facility] DATE CREATED AUTHOR AUTHOR'S ORGANIZ ATION 09/07/2023 [facility] DATE CREATED AUTHOR AUTHOR'S ORGANIZ ATION 09/14/2023 Meza Coleman [facility] ical Center DATE CREATED AUTHOR AUTHOR'S ORGANIZ ATION 02/02/2024 [facility] DATE CREATED AUTHOR AUTHOR'S ORGANIZ ATION 02/25/2024 [facility] DATE CREATED AUTHOR AUTHOR'S ORGANIZ ATION 02/29/2024 [facility] dical Specialists EPIC Care Teams (unrecognized sec tion and content) Team Status: Active Member Role Status Dates Brina Cordero MD Primary Care Provider Active Team Status: Active Member Role Status Dates Destiny Irwin MD Emergency Provider Active Brina Cordero MD Primary Care Provider Active Riky Bundy MD Admit Provider, Attending Martín foreman Active Material Chaser Relationship Specialty Start Date End Date Brina Cordero MD [address] [place] [address] PCP - General Family Medicine 09/09/23 Material Chaser Relationship Specialty Start Date End Date Brina Cordero MD [address] [place] [address] PCP - General Family Medicine 09/09/23 Material Chaser Relationship Specialty Start Date End Date Brina Cordero MD [address] [place] [facility] [place] [address] PCP - General Family Medicine 09/09/23 Material Chaser Relationship Specialty Start Date End Date Brina Cordero MD [address] [place] [facility] [address] PCP - General Family Medicine 09/09/23 Material Chaser Relationship Specialty Start Date End Date Brina Cordero MD [address] [place] [facility] [address] PCP - [facility] Medicine 09/09/23 Material Chaser Relationship Specialty Start Date End Date Brina Cordero MD [address] [place] [facility] [address] PCP - General Family Medicine 09/09/23 Team Status: Active Member Role Status Dates Brina Cordero MD Primary Care Provider Active Start: November 11, 2023 ADITHYA Rush Attending Provider Active Start : November 11, 2023 Team Status: Active Member Role Status Dates Brina Cordero MD Primary Care Provide r, Attending Provider Active Start: November 12, 2023 Team Status: Active Member Role Status Dates Brina Cordero MD Primary Care Provider Active Start: November 22, 2023 ADITHYA Rush Attending Provider Active Start : November 22, 2023 Team Status: Active Member Role Status Dates Brina Cordero MD Primary Care Provider Active Start: November 24, 2023 ADITHYA Rush Attending Provider Active Start : November 24, 2023 Team Status: Active Member Role Status Dates Brina Cordero MD Primary Care Provide r, Attending Provider Active Start: December 21, 2023 Team Status: Active Member Role Status Dates Brina Cordero MD Primary Care Provide r, Attending Provider Active Start: January 04, 2024 Team Status: Active Member Role Status Dates Brina Cordero MD Primary Care Provide r, Attending Provider Active Start: January 09, 2024 Team Status: Active Member Role Status Dates Brina Cordero MD Primary Care Provide r, Attending Provider Active Start: January 10, 2024 Team Status: Inactive Member Role Status Dates Brina Cordero MD Primary Care Provide r, Attending Provider Active Start: January 19, 2024 End: January 19, 2024 Material Chaser Relationship Specialty Start Date End Date Brina Cordero MD [address] [place] [id number] PCP - General Family Medicine 09/09/23 Material Chaser Relationship Specialty Start Date End Date Brina Cordero MD [address] [place] [address] PCP - General Family Medicine 09/09/23 Goals [...] or prosecute any alcohol or drug abuse patient.[facility] CenterIn the event this information is protected by the Federal Confidentiality of Alcohol and Drug Abuse Patient Records regulations: The Federal rules restrict any use of the information to criminally investigate or prosecute any alcohol or drug abuse patient.[facility] CenterIn the event this information is protected by the Federal Confidentiality of Alcohol and Drug Abuse Patient Records regulations: The Federal rules restrict any use of the information to criminally investigate or prosecute any alcohol or drug abuse patient.[facility] CenterIn the event this information is protected by the Federal Confidentiality of Alcohol and Drug Abuse Patient Records regulations: The Federal rules restrict any use of the information to criminally investigate or prosecute any alcohol or drug abuse patient.[facility] CenterIn the event this information is protected by the Federal Confidentiality of Alcohol and Drug Abuse Patient Records regulations: The Federal rules restrict any use of the information to criminally investigate or prosecute any alcohol or drug abuse patient.[facility] CenterIn the event this information is protected by the Federal Confidentiality of Alcohol and Drug Abuse Patient Records regulations: The Federal rules restrict any use of the information to criminally investigate or prosecute any alcohol or drug abuse patient.[facility] CenterIn the event this information is protected by the Federal Confidentiality of Alcohol and Drug Abuse Patient Records regulations: The Federal rules restrict any use of the information to criminally investigate or prosecute any alcohol or drug abuse patient.[facility] CenterIn the event this information is protected by the Federal Confidentiality of Alcohol and Drug Abuse Patient Records regulations: The Federal rules restrict any use of the information to criminally investigate or prosecute any alcohol or drug abuse patient.[facility] CenterIn the event this information is protected by the Federal Confidentiality of Alcohol and Drug Abuse Patient Records regulations: The Federal rules restrict any use of the information to criminally investigate or prosecute any alcohol or drug abuse patient.[facility] CenterIn the event this information is protected by the Federal Confidentiality of Alcohol and Drug Abuse Patient Records regulations: The Federal rules restrict any use of the information to criminally investigate or prosecute any alcohol or drug abuse patient.[facility] FOR RECORDS PERTAINING TO PATIENTS WHO ARE [...] BE BASED ON THE PRIMARY CLINICAL RECORDS. [facility]. provides no warranty or guarantee of the accuracy or completeness of information in this document.
[2024-04-03 08:40] LABS: Basophils Percent Auto 0.2 % (0.2-2.0); Eosinophils Absolute Auto 0.2 10^3/uL (0.0-0.7); Eosinophils Percent Auto 3.3 % (0.9-7.0); Hematocrit 36.6 % (36.0-48.0); Hemoglobin 11.5 g/dL (12.0-16.0); Immature Granulocytes Abs Auto 0.01 10^3/uL (0.00-0.03); Immature Granulocytes Pct Auto 0.2 % (0.0-0.5); Lymphocytes Absolute Auto 1.9 10^3/uL (1.2-3.8); Lymphocytes Percent Auto 35.6 % (20.5-60.0); Mean Corpuscular HGB Conc 31.4 g/dL (29.9-35.2); Mean Corpuscular Hemoglobin 30.9 pg (26.7-34.0); Mean Corpuscular Volume 98.4 fL (81.0-99.0); Mean Platelet Volume 10.3 fL (9.5-13.5); Monocytes Absolute Auto 0.6 10^3/uL (0.3-0.8); Monocytes Percent Auto 11.9 % (1.7-12.0); Neutrophils Absolute Auto 2.5 10^3/uL (1.4-6.5); Neutrophils Percent Auto 48.8 % (43.0-75.0); Platelet Count 191 10^3/uL (150-450); Red Blood Count 3.72 10^6/uL (4.20-5.40); Red Cell Distribution Width 13.7 % (11.0-15.0); White Blood Count 5.2 10^3/uL (4.0-11.0)
[2024-04-03 09:19] LABS: Albumin Level 3.1 g/dL (3.4-5.0); Anion Gap 12.4; BUN Creatinine Ratio 18.2; Calcium 8.1 mg/dL (8.5-10.1); Carbon Dioxide 28.4 mmol/L (21.0-32.0); Chloride 105 mmol/L (98-107); Estimated GFR (African America 28 (>=60); Estimated GFR (Non-African Ame 23 (>=60); Glucose 107 mg/dL (74-106); Magnesium 2.2 mg/dL (1.8-2.4); Phosphorus 3.9 mg/dL (2.6-4.7); Potassium 3.8 mmol/L (3.5-5.1); Sodium 142 mmol/L (136-145); Uric Acid 6.6 mg/dL (2.6-6.0)
[2024-04-04 13:17] LABS: PTH, Intact 90 pg/mL (15-65)
== END 2024-04-03 00:30 | disposition home or self-care (01) ==
LOC: LAB 00:29
PROVIDERS: PCP Family Medicine; Visit Provider Specialist
DX: N18.4 Chronic kidney disease, stage 4 (severe) (principal); I12.9 Hypertensive chronic kidney disease with stage 1 through stage 4 chronic kidney disease, or unspecified chronic kidney disease; N25.0 Renal osteodystrophy; E87.8 Other disorders of electrolyte and fluid balance, not elsewhere classified; E87.70 Fluid overload, unspecified
CPT/HCPCS: 36415; 80069; 83735; 83970; 84100; 84550; 85025

== ENCOUNTER 2024-04-04 16:30 | Outpatient (REF) | payer MEDICARE, MEDICAID, SELFPAY ==
[2024-04-05 10:40] LABS: Bilirubin Urine NEGATIVE (NEGATIVE); Blood Urine NEGATIVE (NEGATIVE); Clarity Urine CLEAR (CLEAR); Color Urine LT. YELLOW (YELLOW); Glucose Urine UA NEGATIVE (NEGATIVE); Ketones Urine NEGATIVE (NEGATIVE); Leukocyte Esterase Urine NEGATIVE (NEGATIVE); Nitrite Urine NEGATIVE (NEGATIVE); Protein Urine NEGATIVE (NEG/TRACE); Specific Gravity Urine 1.015 (1.005-1.025); Urobilinogen Urine 0.2 EU/dL (0.2-1.0)
[2024-04-05 10:42] LABS: Urine Microscopic Indicated NO
== END 2024-04-04 16:31 | disposition home or self-care (01) ==
LOC: LAB 16:30
PROVIDERS: PCP Family Medicine; Visit Provider Specialist
DX: I12.9 Hypertensive chronic kidney disease with stage 1 through stage 4 chronic kidney disease, or unspecified chronic kidney disease (principal); N18.4 Chronic kidney disease, stage 4 (severe); N25.0 Renal osteodystrophy; E87.8 Other disorders of electrolyte and fluid balance, not elsewhere classified; E87.70 Fluid overload, unspecified
CPT/HCPCS: 81003

== ENCOUNTER 2024-05-22 16:21 | Outpatient (REF) | payer MEDICARE, MEDICAID, SELFPAY | END 2024-05-22 16:22 | disposition home or self-care (01) | LOC: LAB 16:21 | PROVIDERS: PCP Family Medicine; Visit Provider Family Medicine | DX: R30.0 Dysuria (principal) | CPT/HCPCS: 87086 ==

== ENCOUNTER 2024-06-28 07:49 | Outpatient (RCR) | payer MEDICARE, MEDICAID, SELFPAY ==
--- OUTSIDE RECORDS SUMMARY | 2024-06-28 07:58 | XMS_ITS | CCD ---
Author Organization [facility] Care Team Providers Care Soft Sugar Cutter Name Role Phone Justino Dhaliwal Primary Care Provider CHELE LAGOS Admitting Unavailable CHELE LAGOS Attending Unavailable YAZMIN, JUSTINO Boone Primary Care Unavailable PENNY DOWNEY Consulting Unavailable CONSTANTIN ESCOBEDO Consulting Unavailable Justino Dhaliwal Primary Care Provider Carlos Carlin Admitting Unavailable Carlos Carlin Attending Unavailable YAZMINJUSTINO ALVARADO Primary Care Unavailab le YAZMIN, JUSTINO HUNG Consulting Unavailab le Yazmin Justino NIELSON Primary Care Provider DR ALAN HERNANDEZ Attending Unavailable HERNANDEZ, DR ALAN Grayson Consulting [...] Provider MD Riky Bundy Attending Provider [phone] Brina Cordero Primary Care Unavailable Riky Bundy Admitting Unavailab Kishan Downs Attending Unavailable Justino Martinez Consulting Unavailable Unavailable Primary Care Provider UnavailHarsh Ireland Attending Unavailable Harsh CLAYTON Attending Unavailable Harsh CLAYTON Referring Unavailable Justino Martinez Attending Unavailable Justino Martinez Referring Unavailable Brina Cordero MD Primary Care Provider [phone] Brina Cordero MD Primary Care Provider [phone] BRINA CORDERO Primary Care Unavailable BRINA CORDERO E Primary Care Unavailable ROXIE, BRINA E Primary Care Unavailable GARLAND, RICCO Attending Unavailable BRINA CORDERO E Primary Care Unavailable MARK CESAR Attending Unavailable GARLAND, RICCO Referring Unavailable GARLAND, RICCO Referring Unavailable ROXIE, BRINA E Primary Care Unavailable GARLAND, RICCO Referring Unavailable ROXIE, BRINA E Primary Care Unavailable GARLAND, RICCO Attending Unavailable GARLAND, RICCO Referring Unavailable CORDERO, BRINA E Primary Care Unavailable ROXIE, BRINA E Primary Care Unavailable ANAJE, STEFANIE Referring Unavailable GARLAND, RICCO Attending Unavailable GARLAND, RICCO Admitting Unavailable ROXIE, BRINA E Primary Care Unavailable ROXIE, BRINA E Primary Care Unavailable FACUNDOMISH A Attending Unavailable BRINA CORDERO Referring Unavailable FACUNDO, KODY A Attending Unavailable FACUNDO, KODY A Attending Unavailable FACUNDO, KODY A Attending Unavailable FACUNDO, KODY A Attending Unavailable FACUNDO, KODY A Attending Unavailable NEELAM CORDEROIA Referring Unavailable Luis Nolasco Attending Unavailable Luis Nolasco Referring Unavailable Allergies Allergy Classification Reported Allergen(s) Allergy Type Date of Onset Reaction(s) Facility (1 source) No Known Medication Allergies; Translations: [No Known Medication Allergies] Propensity to adverse reactions to drug (disorder) [facility] Repository Medications Current Medications Medication Drug [...] 1 tablet by mouth at dinner Vitamins A,C,A-Shed-Mvfyff (Preservision Areds) 2,148 mcg-113 mg-45 mg-17.4mg Tablet [...] ARE DS 2 - as directed Orally 890-11-13-1MG Active busPIRone hydrochloride 10 mg oral tablet (20 sources) Start: 08-31-20 busPIRone (BUSPAR) 10 mg tablet Start: 05-10-2020 take 5 mg by mouth twice daily 5 mg, Oral, 2 TIMES DAILY, First dose on Wed05/10/20 at 2100 calcitriol 0.58411 mg oral capsule (20 sources) Vitamin D3 Analog Start: 08-31-2023 take 0.25 ug by mouth once daily Calcitriol Active 0.25 MCG PO Daily August 31, 2023 1:00am take 1 capsule by [facility] three times weekly Calcitriol 0.25 MCG 1 capsule Orally Thr ee times a Week Active take 1 capsule by [facility] three times weekly Calcitriol 0.25 MCG 1 capsule Orally Thr ee times a Week Active Comment on above: Take 0.25 mcg by [facility]. calcium acetate 667 mg oral [...] 100 mg, Oral, DAILY, First dose on Wed05/11/20 at 0900 Do not crush or break. [...] IVPB extended infusion (mini-bag) polyethylene glycol 3350 18040 mg powder for oral solution (20 sources) [...] Comment on above: Take 1 capsule by [facility] once daily. 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] Onset: 4 Chronic Chronic kidney disease (20 sources) Chronic kidney [...] disturbance] Onset: 3 09-01-2023 Chronic Essential hypertension (16 sources) Hypertensive disorder; Translations: [Essential (primary) hypertension] Onset: 3 09-01-2023 Chronic Fracture of neck of femur (hip) (1 source) Closed intertrochanteric fracture; Translations: [Closed displaced intertrochanteric fracture of left femur, initial encounter ([facility])] Episodic Osteoarthritis (11 sources) Arthritis; Translations: [Unspecified [...] (1 source) Impacted cerumen, bilateral Episodic Other eye disorders (1 source) Vitreous degeneration, bilateral; 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), both eyes] Onset: 4 Chronic Other eye disorders (1 source) Dry eye syndrome of bilateral lacrimal glands; Translations: [Dry eyes, bilateral] Onset: 4 Episodic Other gastrointestinal disorders (18 sources) Slow [...] unspecified; Translations: [Disorientation, unspecified] Onset: 3 Episodic Retinal detachments; defects; vascular occlusion; and retinopathy (20 sources) Degenerative disorder of macula ; Translations: [Unspecified macular degeneration] Onset: 4 Chronic Skin and subcutaneous tissue infections (20 [...] Test Name Value Interpretation Reference Range Facility [facility] ([id number]) 1935 F Date Time Provider Department 02/17/24 [...] discuss the next steps. Please advise. Thanks, Khsuhboo HollidayAdm Urology Moni Chaudhari RN 02/18/2024 12:49 PM [...] Encounter Status:Closed by MONI CHAUDHARI on 02/17/24 [facility] 01-31-2024 KENISHA Telephone (UROB) JESÚS NOLAN ([id number]) 1935 F Date Time Provider Department 01/31/24 MARK CESAR During your visit today, we [...] Encounter Status:Closed by YULY HERNANDEZ on 02/01/24 [facility] Basophils Auto (Bld) [#/Vol] on 01-10-2024 Basophils (Bld) [#/Vol] 0.0 10 3/uL 0.0-0.1 [facility] Basophils/100 WBC Auto (Bld) on 01-10-2024 Basophils/100 WBC (Bld) 0.1 % 0.2-2.0 [facility] Eosinophils/100 WBC Auto (Bl d)on 01-10-2024 Eosinophils/100 WBC (Bld) 2.0 % 0.9-7.0 [facility] Erythrocyte distribution wid th Auto (RBC) [Ratio]on 01-10-2024 Erythrocyte distribution width (RBC) [Ratio] 12.6 % 11.0-15.0 [facility] Estimated glomerular filtrat ion rate (GFR) non- Americanon 01-10-2024 GFR/1.73 sq M.predicted among non-blacks MDRD (S/P/Bld) [Vol rate/Area] 21 mL/min/{1.73_m2} >=60 [facility] Hematocrit Auto (Bld) [Volum e fraction]on 01-10-2024 Hematocrit (Bld) [Volume fraction] 35.0 % 36.0-48.0 [facility] Hemoglobin [Mass/volume] in Bloodon 01-10-2024 Hemoglobin (Bld) [Mass/Vol] 10.9 g/dL 12.0-16.0 [facility] Laboratory - Chemistry and C hemistry - challengeon 01-10-2024 Albumin [Mass/Vol] 2.5 g/dL 3.4-5.0 [facility] Calcium [Mass/Vol] 8.9 mg/dL 8.5-10.1 [facility] Chloride [Moles/Vol] 104 mmol/L 98-107 [facility] CO2 [Moles/Vol] 27.0 mmol/L 21.0-32.0 [facility] Creatinine [Mass/Vol] 2.22 mg/dL 0.55-1.02 [facility] GFR/1.73 sq M.predicted MDRD (S/P/Bld) [Vol rate/Area] 25 mL/min/{1.73_m2} >=60 [facility] Glucose [Mass/Vol] 125 mg/dL 74-106 [facility] Magnesium [Mass/Vol] 2.1 mg/dL 1.8-2.4 [facility] Potassium [Moles/Vol] 3.8 mmol/L 3.5-5.1 [facility] Sodium [Moles/Vol] 142 mmol/L 136-145 [facility] Urate [Mass/Vol] 6.7 mg/dL 2.6-6.0 [facility] Urea nitrogen [Mass/Vol] 32.0 mg/dL 7.0-18.0 [facility] Urea nitrogen/Creatinine [Mass ratio] 14.4 mg/mg [facility] Laboratory - Hematology and Cell countson 01-10-2024 Immature granulocytes/100 WBC (Bld) 1.5 % 0.0-0.5 [facility] Leukocytes [#/volume] correc tavia for nucleated erythrocytes in Blood by Automated counon 01-10-2024 WBC corrected for nucl RBC Auto (Bld) [#/Vol] 7.4 10 3/uL 4.0-11.0 [facility] Lymphocytes Auto (Bld) [#/Vo l]on 01-10-2024 Lymphocytes (Bld) [#/Vol] 1.9 10 3/uL 1.2-3.8 [facility] Lymphocytes/100 WBC Auto (Bl d)on 01-10-2024 Lymphocytes/100 WBC (Bld) 26.1 % 20.5-60.0 [facility] MCH Auto (RBC) [Entitic mass ]on 01-10-2024 MCH (RBC) [Entitic mass] 30.3 pg 26.7-34.0 [facility] MCHC Auto (RBC) [Mass/Vol]on 01-10-2024 MCHC (RBC) [Mass/Vol] 31.1 g/dL 29.9-35.2 [facility] MCV Auto (RBC) [Entitic vol] on 01-10-2024 MCV (RBC) [Entitic vol] 97.2 fL 81.0-99.0 F [facility] Monocytes Auto (Bld) [#/Vol] on 01-10-2024 Monocytes (Bld) [#/Vol] 0.8 10 3/uL 0.3-0.8 [facility] Monocytes/100 WBC Auto (Bld) on 01-10-2024 Monocytes/100 WBC (Bld) 10.6 % 1.7-12.0 F [facility] Neutrophils Auto (Bld) [#/Vo l]on 01-10-2024 Neutrophils (Bld) [#/Vol] 4.4 10 3/uL 1.4-6.5 [facility] Neutrophils/100 WBC Auto (Bl d)on 01-10-2024 Neutrophils/100 WBC (Bld) 59.7 % 43.0-75.0 [facility] No Panel Informationon 01-09 Eosinophils # (Auto) 0.2 10 3/uL 0.0-0.7 [facility] Immature Granulocyte # (Auto) 0.11 10 3/uL 0.00-0.03 [facility] Parathyroid Hormone (Intact) 49 pg/mL 15-65 [facility] Comment on above: Performed at: - [address] [id number] Director: Sriram Knapp PhD, Phone: [phone] Phosphorus Level 4.1 mg/dL 2.6-4.7 [facility] Platelet mean volume Auto (B ld) [Entitic vol]on 01-10-2024 Platelet mean volume (Bld) [Entitic vol] 10.0 fL 9.5-13.5 [facility] Platelets Auto (Bld) [#/Vol] on 01-10-2024 Platelets (Bld) [#/Vol] 285 10 3/uL 150-450 [facility] RBC Auto (Bld) [#/Vol]on RBC (Bld) [#/Vol] 3.60 10 6/uL 4.20-5.40 [facility] Serum or plasma anion gap de terminationon 01-10-2024 Anion gap [Moles/Vol] 14.8 mmol/L [facility] Automated urine specific gra vity by refractometryon 01-09-2024 Specific gravity Refractometry automated (U) [Rel density] 1.015 1.005-1.025 [facility] Bilirubin Auto test strip (U ) [Mass/Vol]on 01-09-2024 Bilirubin (U) [Mass/Vol] Negative NEGATIVE [facility] Color Auto (U)on 01-09-2024 Color (U) LT. YELLOW YELLOW [facility] Ketones Auto test strip (U) [Mass/Vol]on 01-09-2024 Ketones (U) [Mass/Vol] Negative NEGATIVE [facility] Laboratory - Urinalysison Protein (U) [Mass/Vol] 25.2 mg/dL <=11.9 [facility] No Panel Informationon 01-08 Urine Microscopic Review NO [facility] Urine Random Creatinine 59.29 mg/dL 20.0 0-300.0 0 [facility] Protein Auto test strip (U) [Mass/Vol]on 01-09-2024 Protein (U) [Mass/Vol] Negative NEG/TRACE Fi [facility] Specific gravity Auto test s trip (U) [Rel density]on 01-09-2024 Specific gravity (U) [Rel density] CLEAR CLEAR [facility] Urine glucose measurement by test strip (mass/volume)on 01-09-2024 Glucose Test strip (U) [Mass/Vol] Negative NEGATIVE [facility] Urine hemoglobin detection b y automated test stripon 01-09-2024 Hemoglobin Auto test strip Ql (U) Negative NEGATIVE [facility] Urine nitrite detection by a utomated test stripon 01-09-2024 Nitrite Auto test strip Ql (U) Negative NEGATIVE [facility] Urine protein/creatinine rat ioon 01-09-2024 Protein/Creatinine (U) [Ratio] 0.43 [facility] Urobilinogen Auto test strip (U) [Mass/Vol]on 01-09-2024 Urobilinogen Qn (U) 0.2 {Gerard'U}/dL 0.2-1.0 [facility] pH Auto test strip (U)on pH (U) 6.0 [pH] 5.0-9.0 [facility] CNPNon 01-04-2024 CNPN Telephone (UROLMN) JESÚS NOLAN ([id number]) 1935 F Date Time Provider Department 01/04/24 MARK CESAR During your visit today, we recorded the following information about you: Khushboo Davila 01/04/2024 10:24 AM Signed Mailed pt CT orders so they can have done locally when they get apt they will call to schedule VV with Mark O'wiley Allergies As of Date: 01/04/2024 (No Known [...] Status:Closed by KHUSHBOO DAVILA on 01/04/24 [facility] - Microbiology an d Antimicrobial susceptibilityOrdered By: Brina Cordero on 01-04-2024 Bacteria identified Cx Nom (U) [facility] CNPNon 12-08-2023 CNPN Telephone (URFMOB) JESÚS NOLAN ([id number]) 1935 F Date Time Provider Department 12/08/23 MARK CESAR UROB During your visit today, we recorded the [...] Diagnosis:Nephrolithia sis [N20.0] Order(s):CT FLANK WO IVCON [[id number]] Order #: [id number] FUTURE Prescriptions as of 12/08/2023 - acetaminophen [...] Encounter Status:Closed by [facility] Office Visit (UROLMN ) JESÚS NOLAN ([id number]) 1935 F Date Time Provider Department 12/06/23 2:30 PM MARK CESAR UROLUCIANA During your visit today, we recorded the following information about you: Pulse Blood pressure 60/minute 155/88 Mrak Cesar PA-C 12/07/2023 2:24 PM Signed UROLOGY [...] Monocytes % 10/17/2023 9.5 % Final Abs Charlton 10/17/2023 0.68 <0.87 k/uL Final Eosinophils % [...] (H) 74 - 99 mg/dL Final The [place] [employer] (ADA) provides guidance for cutoff [...] Standards of Medical Care in Diabetes 2016, [place] [employer]. Diabetes Care. 2016.39(Suppl 1). BUN 10/17/2023 30 (H) 7 - 21 mg/dL Final Creatinine 10/17/2023 2.11 (H) 0.58 - 0.96 mg/dL Final Sodium 10/17/2023 143 (more content not included)... [facility] US KIDNEY/BLADDERon 12-06-19 US KIDNEY/BLADDER * * *Final [...] with Dr. Garland at 1:55pm on 12/06/23 Roving Hand: [facility] Transcribe Date/Time: Dec 06 2023 1:44P Dictated by : ERICA OSBORN MD This examination was interpreted and the report reviewed and electronically signed by: ERICA OSBORN MD on Dec 06 2023 1:58PM EST [id number] [facility] US Kidney - bilateral and Ur inary bladderon 12-06-2023 [facility] XR ABDOMEN 3V KUB W/OBLIQUES [...] clips. Bones: Left hip prosthesis. Degenerative changes. Roving Hand: PSCB Transcribe Date/Time: Dec 06 2023 2:00P Dictated by : ERICA OSBORN MD This examination was interpreted and the report reviewed and electronically signed by: ERICA OSBORN MD on Dec 06 2023 2:02PM EST [id number] [facility] XR Abdomen GE 3 Views AP and Oblique and Coneon 12-06-2023 [facility] Basophils Auto (Bld) [#/Vol] on 11-12-2023 Basophils (Bld) [#/Vol] 0.0 10 3/uL 0.0-0.1 [facility] Basophils/100 WBC Auto (Bld) on 11-12-2023 Basophils/100 WBC (Bld) 0.2 % 0.2-2.0 F [facility] Eosinophils/100 WBC Auto (Bl d)on 11-12-2023 Eosinophils/100 WBC (Bld) 3.8 % 0.9-7.0 [facility] Erythrocyte distribution wid th Auto (RBC) [Ratio]on 11-12-2023 Erythrocyte distribution width (RBC) [Ratio] 13.6 % 11.0-15.0 [facility] Estimated glomerular filtrat ion rate (GFR) non- Americanon 11-12-2023 GFR/1.73 sq M.predicted among non-blacks MDRD (S/P/Bld) [Vol rate/Area] 23 mL/min/{1.73_m2} >=60 [facility] Hematocrit Auto (Bld) [Volum e fraction]on 11-12-2023 Hematocrit (Bld) [Volume fraction] 35.0 % 36.0-48.0 [facility] Hemoglobin [Mass/volume] in Bloodon 11-12-2023 Hemoglobin (Bld) [Mass/Vol] 10.7 g/dL 12.0-16.0 [facility] Laboratory - Chemistry and C hemistry - challengeon 11-12-2023 Albumin [Mass/Vol] 2.9 g/dL 3.4-5.0 [facility] Calcium [Mass/Vol] 8.5 mg/dL 8.5-10.1 [facility] Chloride [Moles/Vol] 104 mmol/L 98-107 [facility] CO2 [Moles/Vol] 29.4 mmol/L 21.0-32.0 [facility] Creatinine [Mass/Vol] 2.08 mg/dL 0.55-1.02 [facility] GFR/1.73 sq M.predicted MDRD (S/P/Bld) [Vol rate/Area] 27 mL/min/{1.73_m2} >=60 [facility] Glucose [Mass/Vol] 110 mg/dL 74-106 [facility] Magnesium [Mass/Vol] 2.2 mg/dL 1.8-2.4 [facility] Potassium [Moles/Vol] 4.3 mmol/L 3.5-5.1 [facility] Sodium [Moles/Vol] 142 mmol/L 136-145 [facility] Urate [Mass/Vol] 5.9 mg/dL 2.6-6.0 [facility] Urea nitrogen [Mass/Vol] 32.0 mg/dL 7.0-18.0 [facility] Urea nitrogen/Creatinine [Mass ratio] 15.4 mg/mg [facility] Laboratory - Hematology and Cell countson 11-12-2023 Immature granulocytes/100 WBC (Bld) 0.2 % 0.0-0.5 [facility] Leukocytes [#/volume] correc tavia for nucleated erythrocytes in Blood by Automated counon 11-12-2023 WBC corrected for nucl RBC Auto (Bld) [#/Vol] 5.7 10 3/uL 4.0-11.0 [facility] Lymphocytes Auto (Bld) [#/Vo l]on 11-12-2023 Lymphocytes (Bld) [#/Vol] 2.1 10 3/uL 1.2-3.8 [facility] Lymphocytes/100 WBC Auto (Bl d)on 11-12-2023 Lymphocytes/100 WBC (Bld) 36.9 % 20.5-60.0 [facility] MCH Auto (RBC) [Entitic mass ]on 11-12-2023 MCH (RBC) [Entitic mass] 31.7 pg 26.7-34.0 [facility] MCHC Auto (RBC) [Mass/Vol]on 11-12-2023 MCHC (RBC) [Mass/Vol] 30.6 g/dL 29.9-35.2 [facility] MCV Auto (RBC) [Entitic vol] on 11-12-2023 MCV (RBC) [Entitic vol] 103.6 fL 81.0-99.0 F [facility] Monocytes Auto (Bld) [#/Vol] on 11-12-2023 Monocytes (Bld) [#/Vol] 0.7 10 3/uL 0.3-0.8 [facility] Monocytes/100 WBC Auto (Bld) on 11-12-2023 Monocytes/100 WBC (Bld) 11.7 % 1.7-12.0 F [facility] Neutrophils Auto (Bld) [#/Vo l]on 11-12-2023 Neutrophils (Bld) [#/Vol] 2.7 10 3/uL 1.4-6.5 [facility] Neutrophils/100 WBC Auto (Bl d)on 11-12-2023 Neutrophils/100 WBC (Bld) 47.2 % 43.0-75.0 [facility] No Panel Informationon 11-12 Eosinophils # (Auto) 0.2 10 3/uL 0.0-0.7 [facility] Immature Granulocyte # (Auto) 0.01 10 3/uL 0.00-0.03 [facility] Parathyroid Hormone (Intact) 57 pg/mL 15-65 [facility] Comment on above: Performed at: - [employer] [address] [id number] Director: Sriram Knapp PhD, Phone: [phone] Phosphorus Level 3.8 mg/dL 2.6-4.7 [facility] Platelet mean volume Auto (B ld) [Entitic vol]on 11-12-2023 Platelet mean volume (Bld) [Entitic vol] 10.5 fL 9.5-13.5 [facility] Platelets Auto (Bld) [#/Vol] on 11-12-2023 Platelets (Bld) [#/Vol] 260 10 3/uL 150-450 [facility] RBC Auto (Bld) [#/Vol]on RBC (Bld) [#/Vol] 3.38 10 6/uL 4.20-5.40 [facility] Serum or plasma anion gap de terminationon 11-12-2023 Anion gap [Moles/Vol] 12.9 mmol/L [facility] CNOVon 10-27-2023 CNOV Office Visit (UROSMN ) JESÚS NOLAN ([id number]) 1935 F Date Time Provider Department 10/27/23 [...] Yes Patient was roomed in: Q9- 06 Student Financial Aid Manager offered:Patient accepts, visit chaperoned by daughter Patient [...] Instruction Provided To: Patient and family member Plant Technician/Control Room Operator Present: not applicable Discipline: Nursing Learning Topic: SURVIVAL SKILLS: Symptom Management Patient Evaluation: Verbalizes understanding: Yes Supplemental Material Given: Written Material Instructed By Christa Flanagan RN In Department Urology . One suture removed by MD from left side of back with suture [...] Operative Finding (more content not included)... [facility] Basic metabolic 2000 panelon 10-21-2023 Anion gap [Moles/Vol] 10 mmol/L Normal 9-18 [facility] Comment on above: Order Comment: Speci men Type: BLOOD SPECIMENOrdering Facility: [facility] Address: [address] [place] [address] Performed By: #### 2 4321-2 ####[facility] LABCLIA [id number] [place] [address] [place] Calcium [Mass/Vol] 8.7 mg/dL Normal 8.5-10.2 [facility] Comment on above: Order Comment: Speci men Type: BLOOD SPECIMENOrdering Facility: [facility] Address: [address] [place] [address] Performed By: #### 2 4321-2 ####[facility] LABCLIA [id number] [place] [address] [place] Chloride [Moles/Vol] 105 mmol/L Normal 97-105 [place] Comment on above: Order Comment: Speci men Type: BLOOD SPECIMENOrdering Facility: [facility] Address: [address] [place] [address] Performed By: #### 2 4321-2 ####[facility] LABCLIA [id number] [place] [address] [place] CO2 [Moles/Vol] 27 mmol/L Normal 22-30 [facility] Comment on above: Order Comment: Speci men Type: BLOOD SPECIMENOrdering Facility: [facility] Address: [address] [place] [address] Performed By: #### 2 4321-2 ####[facility] LABCLIA [id number] [place] [address] [place] Creatinine [Mass/Vol] 2.04 mg/dL High 0.58-0.96 [facility] Comment on above: Order Comment: Speci men Type: BLOOD SPECIMENOrdering Facility: [facility] Address: [address] [place] [address] Performed By: #### 2 4321-2 ####[facility] LABCLIA [id number] [place] [address] [place] Creatinine and Glomerular filtration rate.predicted panel (S/P/Bld) 23 mL/min/1.73m??? Low >=60 [facility] Comment on above: Order Comment: Lalo mclaughlin Type: BLOOD SPECIMENOrdering Facility: [facility] Address: [address] [place] [address] Result Comment: Melissa mated Glomerular Filtration Rate [...] actual GFR. Performed By: #### 2 4321-2 ####[facility] LABIA [id number] [place] [address] [place] Glucose [Mass/Vol] 180 mg/dL High 74-99 [facility] Comment on above: Order Comment: Lalo mclaughlin Type: BLOOD SPECIMENOrdering Facility: [facility] Address: [address] [place] [address] Result Comment: The [place] Diabetes Association (ADA) provides guidance for cutoff [...] Standards of Medical Care in Diabetes 2016, [place] [employer]. Diabetes Care. 2016.39(Suppl 1). Performed By: #### 2 4321-2 ####[facility] [id number] [place] [address] [place] Potassium [Moles/Vol] 3.5 mmol/L Low 3.7-5.1 [facility] Comment on above: Order Comment: Lalo mclaughlin Type: BLOOD SPECIMENOrdering Facility: [facility] Address: [address] [place] [address] Performed By: #### 2 4321-2 ####[facility] LABCLIA [id number] [place] [address] [place] Sodium [Moles/Vol] 142 mmol/L Normal 136-144 [facility] Comment on above: Order Comment: Speci men Type: BLOOD SPECIMENOrdering Facility: [facility] Address: [address] [place] [address] Performed By: #### 2 4321-2 ####[facility] LABCLIA [id number] [place] [address] [place] Urea nitrogen [Mass/Vol] 26 mg/dL High 7-21 [facility] Comment on above: Order Comment: Speci men Type: BLOOD SPECIMENOrdering Facility: [facility] Address: [address] [place] [address] Performed By: #### 2 4321-2 ####[facility] LABCLIA [id number] [place] [address] [place] CBC panel Auto (Bld)on 10-21 Erythrocyte distribution width (RBC) [Ratio] 13.1 % Normal 11.5-15.0 [facility] Comment on above: Order Comment: Speci men Type: BLOOD SPECIMENOrdering Facility: [facility] Address: [address] [place] [address] Performed By: #### 5 8410-2 ####[facility] [facility] [id number] [place] [address] [place] Hematocrit (Bld) [Volume fraction] 35.1 % Low 36.0-46.0 [facility] Comment on above: Order Comment: Speci men Type: BLOOD SPECIMENOrdering Facility: [facility] Address: [address] [place] [address] Performed By: #### 5 8410-2 ####[facility] LABCLIA [id number] [place] [address] [place] Hemoglobin (Bld) [Mass/Vol] 11.5 g/dL Normal 11.5-15.5 [facility] Comment on above: Order Comment: Speci men Type: BLOOD SPECIMENOrdering Facility: [facility] Address: [address] [place] [address] Performed By: #### 5 8410-2 ####[facility] LABIA [id number] [place] [address] [place] MCH (RBC) [Entitic mass] 31.6 pg Normal 26.0-34.0 [facility] Comment on above: Order Comment: Speci men Type: BLOOD SPECIMENOrdering Facility: [facility] Address: [address] [place] [address] Performed By: #### 5 8410-2 ####[facility] LABCLIA [id number] [place] [address] [place] MCHC (RBC) [Mass/Vol] 32.8 g/dL Normal 30.5-36.0 [facility] Comment on above: Order Comment: Speci men Type: BLOOD SPECIMENOrdering Facility: [facility] Address: [address] [place] [address] Performed By: #### 5 8410-2 ####[facility] LABIA [id number] [place] [address] [place] MCV (RBC) [Entitic vol] 96.4 fL Normal 80.0-100.0 [facility] Comment on above: Order Comment: Speci men Type: BLOOD SPECIMENOrdering Facility: [facility] Address: [address] [place] [address] Performed By: #### 5 8410-2 ####[facility] LABCLIA [id number] [place] [address] [place] Nucleated RBC (Bld) [#/Vol] 10*3/uL Normal <0.01 [facility] Comment on above: Order Comment: Speci men Type: BLOOD SPECIMENOrdering Facility: [facility] Address: [address] [place] [address] Performed By: #### 5 8410-2 ####[facility] LABIA [id number] [place] [address] [place] Platelet mean volume (Bld) [Entitic vol] 10.7 fL Normal 9.0-12.7 [facility] Comment on above: Order Comment: Speci men Type: BLOOD SPECIMENOrdering Facility: [facility] Address: [address] [place] [address] Performed By: #### 5 8410-2 ####[facility] LABIA [id number] [place] [address] [place] Platelets (Bld) [#/Vol] 158 10*3/uL Normal 150-400 [facility] Comment on above: Order Comment: Speci men Type: BLOOD SPECIMENOrdering Facility: [facility] Address: [address] [place] [address] Performed By: #### 5 8410-2 ####[facility] LABIA [id number] [place] [address] [place] RBC (Bld) [#/Vol] 3.64 10*6/uL Low 3.90-5.20 [facility] Comment on above: Order Comment: Speci men Type: BLOOD SPECIMENOrdering Facility: [facility] Address: [address] [place] [address] Performed By: #### 5 8410-2 ####[facility] LABIA [id number] [place] [address] [place] WBC (Bld) [#/Vol] 8.61 10*3/uL Normal 3.70-11.00 [facility] Comment on above: Order Comment: Speci men Type: BLOOD SPECIMENOrdering Facility: [facility] Address: [address] [place] [address] Performed By: #### 5 8410-2 ####[facility]CLIA [id number] ASHANTI RODRIGUES [id number] [place], [place] [address] [place] THERAPY NTon 10-21-2023 THERAPY NT HNO ID: [id number] Author: MERY KAUR OT/L Service: Occupational Therapy Author Type: Occupational Therapist Type: Therapy (PT/OT/Speech/Resp) Filed: 10/21/2023 10:57 Note Text: Occupational Therapy Evaluation Summary SERVICE DATE: 10/21/2023 SERVICE TIME: 0935 to 1003 ROOM: [place] [address] OT 6 Clicks Score: 18 DISCHARGE RECOMMENDATIONS Subacute/SNF Recommended Discharge Disposition Comments: Return to [facility] Anticipated Discharge Needs: Physical Assist at Home [...] EOB > chair with min A and CARE COORDINATOR this date. Pt completed grooming tasks seated [...] > w/c with assist, (-) driving, from [facility] and was participating in therapy CTRS. Baseline Cognition: Oriented to self, Oriented to [...] symptoms and signs-other TREATMENT INTERVENTIONS Evaluation, Self Detention Management (71508) Timed Code Treatment (minutes): 13 Skilled Treatment Time (minutes): 28 TRAINING AND EDUCATION PROVIDED Activity Adaptation/Floral Specialist y Strategies, Altering Thinking Patterns, Adaptive [...] Therapy, Sensory Integration, Sitting Balance to Improve [place] with ADLs/Self-Care, Standing Balance to Improve [place] with ADLs/Self-Care, Transfer - Sit to Stand, [...] Type: Stepping Bed To Chair Transfer Equipment: (CARE COORDINATOR) Toilet/Commode Shower Functional Mobility GOALS Patient will demonstrate understanding (more content not included)... [facility] Basic metabolic 2000 panelon 10-20-2023 Anion gap [Moles/Vol] 14 mmol/L Normal 9-18 [facility] Comment on above: Order Comment: Speci men Type: BLOOD SPECIMENOrdering Facility: [facility] Address: [address] [place] [address] Performed By: #### 2 4321-2 ####[facility] LABCLIA [id number] [place] [address] [place] Calcium [Mass/Vol] 9.2 mg/dL Normal 8.5-10.2 [facility] Comment on above: Order Comment: Speci men Type: BLOOD SPECIMENOrdering Facility: [facility] Address: [address] [place] [address] Performed By: #### 2 4321-2 ####[facility] LABCLIA [id number] [place] [address] [place] Chloride [Moles/Vol] 103 mmol/L Normal 97-105 [place] Comment on above: Order Comment: Speci men Type: BLOOD SPECIMENOrdering Facility: [facility] Address: [address] [place] [address] Performed By: #### 2 4321-2 ####[facility]CLIA [id number] [place] [address] [place] CO2 [Moles/Vol] 25 mmol/L Normal 22-30 [facility] Comment on above: Order Comment: Speci men Type: BLOOD SPECIMENOrdering Facility: [facility] Address: [address] [place] [address] Performed By: #### 2 4321-2 ####[facility] LABCLIA [id number] [place] [address] [place] Creatinine [Mass/Vol] 1.90 mg/dL High 0.58-0.96 [facility] Comment on above: Order Comment: Lalo mclaughlin Type: BLOOD SPECIMENOrdering Facility: [facility] Address: [address] [place] [address] Performed By: #### 2 4321-2 ####[facility] LABCLIA [id number] [place] [address] [place] Creatinine and Glomerular filtration rate.predicted panel (S/P/Bld) 25 mL/min/1.73m??? Low >=60 [facility] Comment on above: Order Comment: Lalo mclaughlin Type: BLOOD SPECIMENOrdering Facility: [facility] Address: [address] [place] [address] Result Comment: Melissa mated Glomerular Filtration Rate [...] actual GFR. Performed By: #### 2 4321-2 ####[facility] LABCLIA [id number] [place] [address] [place] Glucose [Mass/Vol] 92 mg/dL Normal 74-99 [facility] Comment on above: Order Comment: Lalo mclaughlin Type: BLOOD SPECIMENOrdering Facility: [facility] Address: [address] [place] [address] Result Comment: The [place] Diabetes Association (ADA) provides guidance for cutoff [...] Standards of Medical Care in Diabetes 2016, [place] [employer]. Diabetes Care. 2016.39(Suppl 1). Performed By: #### 2 4321-2 ####[facility] LABCLIA [id number] [place] [address] [place] Potassium [Moles/Vol] Normal [facility] Comment on above: Order Comment: Speci men Type: BLOOD SPECIMENOrdering Facility: [facility] Address: [address] [place] [address] Result Comment: Unab le to assay due to interference from hemolysis. Suggest reorder as clinically indicated. Performed By: #### 2 4321-2 ####[facility] LABIA [id number] [place] [address] [place] Sodium [Moles/Vol] 142 mmol/L Normal 136-144 [facility] Comment on above: Order Comment: Speci men Type: BLOOD SPECIMENOrdering Facility: [facility] Address: [address] [place] [address] Performed By: #### 2 4321-2 ####[facility] LABIA [id number] [place] [address] [place] Urea nitrogen [Mass/Vol] 21 mg/dL Normal 7-21 [facility] Comment on above: Order Comment: Speci men Type: BLOOD SPECIMENOrdering Facility: [facility] Address: [address] [place] [address] Performed By: #### 2 4321-2 ####[facility] LABIA [id number] [place] [id number] [place] CNDSon 10-20-2023 CNDS HNO ID: [id number] Author: RICCO GARLAND MD Service: Urology Author Type: Physician Type: Discharge Summary Filed: 10/24/2023 20:32 Note Text: [place] [address] or (517) [facility] N T I A L I N F O R M A T I O N STANDARD [facility] DOCUMENT DISCHARGE SUMMARY Patient Name: Jesús Nolan [...] UP TO 2cm (Left) on 10/18. Subsequently TELEPHONE CLERKS SUPERVISOR is required. Please contact your jr. systems administrator to configure this SmartLink. was transferred to a regular nursing unit. Pain was initially controlled with intravenous/oral analgesia, Diet was slowly advanced as tolerated , Activity level was gradually increased, On post-operative day 2 she was afebrile for approximately 24 hours, ambulating without difficulty, tolerating diet, and pain was adequately controlled with oral medication. The [facility] with instructions to return for follow up [...] Medications These medications were sent to e- [facility]/pharmacy #[id number] [phone] [place] [address] amoxicillin 250 mg capsule tamsulosin 0.4 mg You can get these medications from any pharmacy You don't need a prescription for these medications acetaminophen 500 mg tablet Future Appointments: No future appointments. Electronically SIGNED by Licensed Independent Practitioner: MD Ricco Wilcox MD, FACS Director, Surgical Stone Disease, [facility] [place] baseboard heating installer, [facility] Pager [phone] 10/20/2023 Note: Due to patient confusion/combativenes s, we may need to hold discharge and revise this summary. Ricco Garland MD, FACS Director, Surgical Stone Disease, [facility] [place] baseboard heating installer, [facility] Pager [phone] 10/20/2023 [facility] CONSULTon 10-20-2023 CONSULT HNO ID: [id number] Author: FANTA MEDELLIN MD Service: Psychiatry Author Type: Physician Type: Consults Filed: 10/21/2023 18:06 Note Text: PSYCHIATRY CONSULT SERVICE MEDICAL STUDENT INITIAL CONSULT NOTE DAY TIME COVERAGE: Between 8AM to 5PM, page [phone] NIGHT AND WEEKEND COVERAGE: After hours (5PM to 8AM) and weekends, page [phone] SERVICE DATE: October 20, 2023 SERVICE TIME: [...] managed RECOMMENDATIONS: -Delirium protocol - 1:1 director park for safety - Use Haloperidol 2 mg PO or IM q 6 hours, PRN for severe agitation if behavioral interventions fail - Continue 9 mg Melatonin at bedtime for sleep - Continue home psychiatric medications- Buspar 10 mg daily for anxiety. - Please AVOID opioids, benzodiazepines, or anticholinergic medications. - Psych to follow up while inpatient [facility] KUMAR [phone] ____ This note was generated by a [...] is a 88 year old female from [place], [place]. History of Present Illness: She is [...] daughter and son in law in the [facility] area. She was well-groomed and dressed in [...] SYMPTOMS: Depressio (more content not included)... [facility] NURSING PROGon 10-20-2023 NURSING PROG HNO ID: [id number] Author: MIRIAN WALSH RN Service: Nursing Author [...] and given in the left thigh. Mirian FERNANDES RN [facility] THERAPY NTon 10-20-2023 THERAPY NT HNO ID: [id number] Author: [place] GATICA PT Service: Physical Therapy Author Type: Physical Therapist Type: Therapy (PT/OT/Speech/Resp) Filed: 10/20/2023 12:00 Note Text: PHYSICAL THERAPY MISSED VISIT SERVICE DATE: 10/20/2023 SERVICE TIME: 942 ROOM: [place] [address] Patient not seen due to: Spoke with CM who stated the patient is being discharged. SIGNATURE: Oh Gatica PT PATIENT NAME: Jesús Nolan DATE: October 20, 2023 TIME: 11:59 AM [facility] [place] NT HNO ID: [id number] Author: MERY KAUR OT/Semaj Service: Occupational Therapy Author Type: Occupational Therapist Type: Therapy (PT/OT/Speech/Resp) Filed: 10/20/2023 09:49 Note Text: OCCUPATIONAL THERAPY MISSED VISIT SERVICE DATE: 10/20/2023 SERVICE TIME: 814 ROOM: [place] [address] Patient not seen due to Clinical Appropriateness. OT attempted eval this AM- pt combative, aggressive, and verbally abusive towards therapist. Pt now with active discharge order for this AM. OT will reattempt if necessary. SIGNATURE: Mery Kaur OT/Semaj PATIENT NAME: Jesús Nolan DATE: October 20, 2023 TIME: 9:47 AM [facility] Basic metabolic 2000 panelon 10-19-2023 Anion gap [Moles/Vol] 11 mmol/L Normal 9-18 [facility] Comment on above: Order Comment: Speci men Type: BLOOD SPECIMENOrdering Facility: [facility] Address: [address] [place] [address] Performed By: #### 2 4321-2 ####[facility] LABIA [id number] [place] [address] [place] Calcium [Mass/Vol] 8.6 mg/dL Normal 8.5-10.2 [facility] Comment on above: Order Comment: Speci men Type: BLOOD SPECIMENOrdering Facility: [facility] Address: [address] [place] [address] Performed By: #### 2 4321-2 ####[facility] LABCLIA [id number] [place] [address] [place] Chloride [Moles/Vol] 105 mmol/L Normal 97-105 [place] Comment on above: Order Comment: Speci men Type: BLOOD SPECIMENOrdering Facility: [facility] Address: [address] [place] [address] Performed By: #### 2 4321-2 ####[facility] LABCLIA [id number] [place] [address] [place] CO2 [Moles/Vol] 26 mmol/L Normal 22-30 [facility] Comment on above: Order Comment: Speci men Type: BLOOD SPECIMENOrdering Facility: [facility] Address: [address] [place] [address] Performed By: #### 2 4321-2 ####[facility] LABCLIA [id number] [place] [address] [place] Creatinine [Mass/Vol] 2.02 mg/dL High 0.58-0.96 [facility] Comment on above: Order Comment: Speci men Type: BLOOD SPECIMENOrdering Facility: [facility] Address: [address] [place] [address] Performed By: #### 2 4321-2 ####[facility] LABCLIA [id number] [place] [address] [place] Creatinine and Glomerular filtration rate.predicted panel (S/P/Bld) 24 mL/min/1.73m??? Low >=60 [facility] Comment on above: Order Comment: Speci men Type: BLOOD SPECIMENOrdering Facility: [facility] Address: [address] [place] [address] Result Comment: Melissa mated Glomerular Filtration Rate [...] actual GFR. Performed By: #### 2 4321-2 ####[facility] LABCLIA [id number] [place] [address] [place] Glucose [Mass/Vol] 131 mg/dL High 74-99 [facility] Comment on above: Order Comment: Speci men Type: BLOOD SPECIMENOrdering Facility: [facility] Address: [address] [place] [address] Result Comment: The [place] Diabetes Association (ADA) provides guidance for cutoff [...] Standards of Medical Care in Diabetes 2016, [place] [employer]. Diabetes Care. 2016.39(Suppl 1). Performed By: #### 2 4321-2 ####[facility] LABCLIA [id number] [place] [address] [place] Potassium [Moles/Vol] 3.9 mmol/L Normal 3.7-5.1 [facility] Comment on above: Order Comment: Speci men Type: BLOOD SPECIMENOrdering Facility: [facility] Address: [address] [place] [address] Performed By: #### 2 4321-2 ####[facility] LABIA [id number] [place] [address] [place] Sodium [Moles/Vol] 142 mmol/L Normal 136-144 [facility] Comment on above: Order Comment: Speci men Type: BLOOD SPECIMENOrdering Facility: [facility] Address: [address] [place] [address] Performed By: #### 2 4321-2 ####[facility] LABCLIA [id number] [place] [address] [place] Urea nitrogen [Mass/Vol] 25 mg/dL High 7-21 [facility] Comment on above: Order Comment: Speci men Type: BLOOD SPECIMENOrdering Facility: [facility] Address: [address] [place] [address] Performed By: #### 2 4321-2 ####[facility] LABCLIA [id number] [place] [address] [place] CBC W Auto Differential pane l (Bld)on 10-19-2023 Basophils (Bld) [#/Vol] 10*3/uL Normal <0.11 [facility] Comment on above: Order Comment: Speci men Type: BLOOD SPECIMENOrdering Facility: [facility] Address: [address] [place] [address] Performed By: #### 5 7021-8 ####[facility] LABCLIA [id number] [place] [address] [place] Basophils/100 WBC (Bld) 0.2 % Normal [facility] Comment on above: Order Comment: Speci men Type: BLOOD SPECIMENOrdering Facility: [facility] Address: [address] [place] [address] Performed By: #### 5 7021-8 ####[facility] LABCLIA [id number] [place] [address] [place] Differential cell count method Nom (Bld) Auto [facility] Comment on above: Order Comment: Speci men Type: BLOOD SPECIMENOrdering Facility: [facility] Address: [address] [place] [address] Performed By: #### 5 7021-8 ####[facility] LABCLIA [id number] [place] [address] [place] Eosinophils (Bld) [#/Vol] 0.03 10*3/uL Normal <0.46 [facility] Comment on above: Order Comment: Speci men Type: BLOOD SPECIMENOrdering Facility: [facility] Address: [address] [place] [address] Performed By: #### 5 7021-8 ####[facility] LABCLIA [id number] [place] [address] [place] Eosinophils/100 WBC (Bld) 0.2 % [facility] Comment on above: Order Comment: Speci men Type: BLOOD SPECIMENOrdering Facility: [facility] Address: [address] [place] [address] Performed By: #### 5 7021-8 ####[facility] LABCLIA [id number] [place] [address] [place] Erythrocyte distribution width (RBC) [Ratio] 13.3 % Normal 11.5-15.0 [facility] Comment on above: Order Comment: Speci men Type: BLOOD SPECIMENOrdering Facility: [facility] Address: [address] [place] [address] Performed By: #### 5 7021-8 ####[facility] LABCLIA [id number] [place] [address] [place] Hematocrit (Bld) [Volume fraction] 36.8 % Normal 36.0-46.0 [facility] Comment on above: Order Comment: Speci men Type: BLOOD SPECIMENOrdering Facility: [facility] Address: [address] [place] [address] Performed By: #### 5 7021-8 ####[facility] LABIA [id number] [place] [address] [place] Hemoglobin (Bld) [Mass/Vol] 11.8 g/dL Normal 11.5-15.5 [facility] Comment on above: Order Comment: Speci men Type: BLOOD SPECIMENOrdering Facility: [facility] Address: [address] [place] [address] Performed By: #### 5 7021-8 ####[facility] LABCLIA [id number] [place] [address] [place] Immature granulocytes (Bld) [#/Vol] 0.05 10*3/uL Normal <0.10 [facility] Comment on above: Order Comment: Speci men Type: BLOOD SPECIMENOrdering Facility: [facility] Address: [address] [place] [address] Performed By: #### 5 7021-8 ####[facility] LABCLIA [id number] [place] [address] [place] Immature granulocytes/100 WBC (Bld) 0.4 % [facility] Comment on above: Order Comment: Speci men Type: BLOOD SPECIMENOrdering Facility: [facility] Address: [address] [place] [address] Performed By: #### 5 7021-8 ####[facility] LABCLIA [id number] [place] [address] [place] Lymphocytes (Bld) [#/Vol] 1.26 10*3/uL Normal 1.00-4.00 [facility] Comment on above: Order Comment: Speci men Type: BLOOD SPECIMENOrdering Facility: [facility] Address: [address] [place] [address] Performed By: #### 5 7021-8 ####[facility] LABCLIA [id number] [place] [address] [place] Lymphocytes/100 WBC (Bld) 10.1 % [facility] Comment on above: Order Comment: Speci men Type: BLOOD SPECIMENOrdering Facility: [facility] Address: [address] [place] [address] Performed By: #### 5 7021-8 ####[facility] LABCLIA [id number] [place] [address] [place] MCH (RBC) [Entitic mass] 32.6 pg Normal 26.0-34.0 [facility] Comment on above: Order Comment: Speci men Type: BLOOD SPECIMENOrdering Facility: [facility] Address: [address] [place] [address] Performed By: #### 5 7021-8 ####[facility] LABCLIA [id number] [place] [address] [place] MCHC (RBC) [Mass/Vol] 32.1 g/dL Normal 30.5-36.0 [facility] Comment on above: Order Comment: Speci men Type: BLOOD SPECIMENOrdering Facility: [facility] Address: [address] [place] [address] Performed By: #### 5 7021-8 ####[facility] LABCLIA [id number] [place] [address] [place] MCV (RBC) [Entitic vol] 101.7 fL High 80.0-100.0 [facility] Comment on above: Order Comment: Speci men Type: BLOOD SPECIMENOrdering Facility: [facility] Address: [address] [place] [address] Performed By: #### 5 7021-8 ####[facility] LABCLIA [id number] [place] [address] [place] Monocytes (Bld) [#/Vol] 1.09 10*3/uL High <0.87 [facility] Comment on above: Order Comment: Speci men Type: BLOOD SPECIMENOrdering Facility: [facility] Address: [address] [place] [address] Performed By: #### 5 7021-8 ####[facility] LABCLIA [id number] [place] [address] [place] Monocytes/100 WBC (Bld) 8.7 % Normal [facility] Comment on above: Order Comment: Speci men Type: BLOOD SPECIMENOrdering Facility: [facility] Address: [address] [place] [address] Performed By: #### 5 7021-8 ####[facility] LABCLIA [id number] [place] [address] [place] Neutrophils (Bld) [#/Vol] 10.04 10*3/uL High 1.45-7.50 [facility] Comment on above: Order Comment: Speci men Type: BLOOD SPECIMENOrdering Facility: [facility] Address: [address] [place] [address] Performed By: #### 5 7021-8 ####[facility] LABCLIA [id number] [place] [address] [place] Neutrophils/100 WBC (Bld) 80.4 % [facility] Comment on above: Order Comment: Speci men Type: BLOOD SPECIMENOrdering Facility: [facility] Address: [address] [place] [address] Performed By: #### 5 7021-8 ####[facility] LABCLIA [id number] [place] [address] [place] Nucleated RBC (Bld) [#/Vol] 10*3/uL Normal <0.01 [facility] Comment on above: Order Comment: Speci men Type: BLOOD SPECIMENOrdering Facility: [facility] Address: [address] [place] [address] Performed By: #### 5 7021-8 ####[facility] LABIA [id number] [place] [address] [place] Nucleated RBC/100 WBC (Bld) [Ratio] 0.0 /100 WBC [facility] Comment on above: Order Comment: Speci men Type: BLOOD SPECIMENOrdering Facility: [facility] Address: [address] [place] [address] Performed By: #### 5 7021-8 ####[facility] LABIA [id number] [place] [address] [place] Platelet mean volume (Bld) [Entitic vol] 10.6 fL Normal 9.0-12.7 [facility] Comment on above: Order Comment: Speci men Type: BLOOD SPECIMENOrdering Facility: [facility] Address: [address] [place] [address] Performed By: #### 5 7021-8 ####[facility] LABCLIA [id number] [place] [address] [place] Platelets (Bld) [#/Vol] 168 10*3/uL Normal 150-400 [facility] Comment on above: Order Comment: Speci men Type: BLOOD SPECIMENOrdering Facility: [facility] Address: [address] [place] [address] Performed By: #### 5 7021-8 ####[facility] LABCLIA [id number] [place] [address] [place] RBC (Bld) [#/Vol] 3.62 10*6/uL Low 3.90-5.20 [facility] Comment on above: Order Comment: Speci men Type: BLOOD SPECIMENOrdering Facility: [facility] Address: [address] [place] [address] Performed By: #### 5 7021-8 ####[facility] LABCLIA [id number] [place] [address] [place] WBC (Bld) [#/Vol] 12.49 10*3/uL High 3.70-11.00 [place] Comment on above: Order Comment: Speci men Type: BLOOD SPECIMENOrdering Facility: [facility] Address: [address] [place] [address] Performed By: #### 5 7021-8 ####[facility] LABIA [id number] [place] [address] [place] ANES POSTPROC EVALon 024 ANES POSTPROC EVAL HNO ID: [id number] Author: ESVIN ALLEN MD Service: ? Author Type: Anesthesiologist Type: Anesthesia Postprocedure Evaluation Filed: 10/18/2023 12:06 Note Text: POST ANESTHESIA EVALUATION NOTE : 1935 Procedure Summary Date: 10/18/23 Room / Location: [address] Anesthesia Start: 732 Anesthesia Stop: 1057 [...] October 18, 2023 TIME: 12:06 PM CSN: [id number] [facility] ANES PRE-OPon 10-18-2023 ANES PRE-OP HNO ID: [id number] Author: ESVIN ALLEN MD Service: ? Author [...] and consent discussed: yes. Patient / Responsible [employer] agrees to proceed: yes Patient / [...] October 18, 2023 TIME: 7:49 AM CSN: [id number] [facility] Bacteria Ur Culton 4 Bacteria identified Cx Nom (U) CULTURE, URINE: No growth (<1,000 CFU/ml) [facility] Comment on above: Performed By: #### 6 30-4 ####[facility] LABCLIA [id number] [address] [address] [place] Basic metabolic 2000 panelon 10-18-2023 Anion gap [Moles/Vol] 14 mmol/L Normal 9-18 [facility] Comment on above: Order Comment: Speci men Type: BLOOD SPECIMENOrdering Facility: [facility] Address: [address] [place] [address] Performed By: #### 2 4321-2 ####[facility] LABCLIA [id number] [place] [address] [place] Calcium [Mass/Vol] 8.0 mg/dL Low 8.5-10.2 [facility] Comment on above: Order Comment: Speci men Type: BLOOD SPECIMENOrdering Facility: [facility] Address: [address] [place] [address] Performed By: #### 2 4321-2 ####[facility] LABCLIA [id number] [place] [address] [place] Chloride [Moles/Vol] 106 mmol/L High 97-105 [place] Comment on above: Order Comment: Speci men Type: BLOOD SPECIMENOrdering Facility: [facility] Address: [address] [place] [address] Performed By: #### 2 4321-2 ####[facility] LABCLIA [id number] [place] [id number] [place] CO2 [Moles/Vol] 24 mmol/L Normal 22-30 [facility] Comment on above: Order Comment: Speci men Type: BLOOD SPECIMENOrdering Facility: [facility] Address: [address] [place] [address] Performed By: #### 2 4321-2 ####[facility] LABCLIA [id number] [place] [id number] [place] Creatinine [Mass/Vol] 1.91 mg/dL High 0.58-0.96 [facility] Comment on above: Order Comment: Lalo mclaughlin Type: BLOOD SPECIMENOrdering Facility: [facility] Address: [address] [place] [address] Performed By: #### 2 4321-2 ####[facility] LABIA [id number] [place] [address] [place] Creatinine and Glomerular filtration rate.predicted panel (S/P/Bld) 25 mL/min/1.73m??? Low >=60 [facility] Comment on above: Order Comment: Lalo mclaughlin Type: BLOOD SPECIMENOrdering Facility: [facility] Address: [address] [place] [address] Result Comment: Melissa mated Glomerular Filtration Rate [...] actual GFR. Performed By: #### 2 4321-2 ####[facility] LABCLIA [id number] [place] [address] [place] Glucose [Mass/Vol] 197 mg/dL High 74-99 [facility] Comment on above: Order Comment: Lalo mclaughlin Type: BLOOD SPECIMENOrdering Facility: [facility] Address: [address] [place] [address] Result Comment: The [place] Diabetes Association (ADA) provides guidance for cutoff [...] Standards of Medical Care in Diabetes 2016, [place] [employer]. Diabetes Care. 2016.39(Suppl 1). Performed By: #### 2 4321-2 ####[facility] LABCLIA [id number] [place] [address] [place] Potassium [Moles/Vol] 4.0 mmol/L Normal 3.7-5.1 [facility] Comment on above: Order Comment: Speci men Type: BLOOD SPECIMENOrdering Facility: [facility] Address: [address] [place] [address] Performed By: #### 2 4321-2 ####[facility] LABIA [id number] [place] [address] [place] Sodium [Moles/Vol] 144 mmol/L Normal 136-144 [facility] Comment on above: Order Comment: Speci men Type: BLOOD SPECIMENOrdering Facility: [facility] Address: [address] [place] [address] Performed By: #### 2 4321-2 ####[facility] LABIA [id number] [place] [address] [place] Urea nitrogen [Mass/Vol] 25 mg/dL High 7-21 [facility] Comment on above: Order Comment: Speci men Type: BLOOD SPECIMENOrdering Facility: [facility] Address: [address] [place] [address] Performed By: #### 2 4321-2 ####[facility] LABIA [id number] [place] [address] [place] CALCULI ANALYSISon 4 Calculus analysis [Interp] [facility] Comment on above: Order Comment: Speci men Type: CALCULUS SPECIMENOrdering Facility: [facility] Address: [address] [place] [address] Result Comment: This test was developed and its performance characteristics determined by [facility]'s Jigar Brody [facility] Pathology and [facility] [place] ([facility]). It has not been cleared or approved by the FDA. -[facility] is regulated under CLIA as qualified to perform high-complexity testing. This test is used for clinical purposes. It should not be regarded as investigational or for research. Performed By: #### C SA ####[facility] LABIA [id number] [place] [address] [place] CALCULUS COLOR MEDINA [facility] Comment on above: Order Comment: Speci men Type: CALCULUS SPECIMENOrdering Facility: [facility] Address: [address] [place] [address] Performed By: #### C SA ####[facility] [id number] [address] [place] CALCULUS COMPOSITION 1 60% Calcium Phosphate [facility] Comment on above: Order Comment: Speci men Type: CALCULUS SPECIMENOrdering Facility: [facility] Address: [address] [place] [address] Performed By: #### C SA ####[place] [id number] [address] [place] CALCULUS COMPOSITION 2 40% Magnesium Amm onium Phosphate [facility] Comment on above: Order Comment: Speci men Type: CALCULUS SPECIMENOrdering Facility: [facility] Address: [address] [place] [address] Performed By: #### C SA ####[facility] LABIA [id number] [address] [place] CALCULUS SIZE AND WT Multiple pieces. 12.1620 GRAMS [facility] Comment on above: Order Comment: Speci men Type: CALCULUS SPECIMENOrdering Facility: [facility] Address: [address] [place] [address] Performed By: #### C SA ####[facility] LABCLIA [id number] [place] [address] [place] CALCULUS TYPE CALCULI/CALCULUS Normal [facility] Comment on above: Order Comment: Speci men Type: CALCULUS SPECIMENOrdering Facility: [facility] Address: [address] [place] [address] Performed By: #### C SA ####[facility] LABCLIA [id number] [place] [address] [place] CBC panel Auto (Bld)on 10-18 Erythrocyte distribution width (RBC) [Ratio] 13.2 % Normal 11.5-15.0 [facility] Comment on above: Order Comment: Speci men Type: BLOOD SPECIMENOrdering Facility: [facility] Address: [address] [place] [address] Performed By: #### 5 8410-2 ####[facility] LABIA [id number] [address] [place] Hematocrit (Bld) [Volume fraction] 37.0 % Normal 36.0-46.0 [facility] Comment on above: Order Comment: Speci men Type: BLOOD SPECIMENOrdering Facility: [facility] Address: [address] [place] [address] Performed By: #### 5 8410-2 ####[facility] LABIA [id number] [place] [address] [place] Hemoglobin (Bld) [Mass/Vol] 11.8 g/dL Normal 11.5-15.5 [facility] Comment on above: Order Comment: Speci men Type: BLOOD SPECIMENOrdering Facility: [facility] Address: [address] [place] [address] Performed By: #### 5 8410-2 ####[facility] LABCLIA [id number] [place] [address] [place] MCH (RBC) [Entitic mass] 31.7 pg Normal 26.0-34.0 [facility] Comment on above: Order Comment: Speci men Type: BLOOD SPECIMENOrdering Facility: [facility] Address: [address] [place] [address] Performed By: #### 5 8410-2 ####[facility] LABIA [id number] [place] [address] [place] MCHC (RBC) [Mass/Vol] 31.9 g/dL Normal 30.5-36.0 [facility] Comment on above: Order Comment: Speci men Type: BLOOD SPECIMENOrdering Facility: [facility] Address: [address] [place] [address] Performed By: #### 5 8410-2 ####[facility] LABIA [id number] [place] [address] [place] MCV (RBC) [Entitic vol] 99.5 fL Normal 80.0-100.0 [facility] Comment on above: Order Comment: Speci men Type: BLOOD SPECIMENOrdering Facility: [facility] Address: [address] [place] [address] Performed By: #### 5 8410-2 ####[facility] LABIA [id number] [place] [address] [place] Nucleated RBC (Bld) [#/Vol] 10*3/uL Normal <0.01 [facility] Comment on above: Order Comment: Speci men Type: BLOOD SPECIMENOrdering Facility: [facility] Address: [address] [place] [address] Performed By: #### 5 8410-2 ####[facility] LABIA [id number] [place] [address] [place] Platelet mean volume (Bld) [Entitic vol] 10.4 fL Normal 9.0-12.7 [facility] Comment on above: Order Comment: Speci men Type: BLOOD SPECIMENOrdering Facility: [facility] Address: [address] [place] [address] Performed By: #### 5 8410-2 ####[facility] LABIA [id number] [place] [id number] [place] Platelets (Bld) [#/Vol] 165 10*3/uL Normal 150-400 [facility] Comment on above: Order Comment: Speci men Type: BLOOD SPECIMENOrdering Facility: [facility] Address: [address] [place] [address] Performed By: #### 5 8410-2 ####[facility] [id number] [place] [address] [place] RBC (Bld) [#/Vol] 3.72 10*6/uL Low 3.90-5.20 [facility] Comment on above: Order Comment: Speci men Type: BLOOD SPECIMENOrdering Facility: [facility] Address: [address] [place] [address] Performed By: #### 5 8410-2 ####[facility] [id number] [place] [address] [place] WBC (Bld) [#/Vol] 18.32 10*3/uL High 3.70-11.00 [place] Comment on above: Order Comment: Speci men Type: BLOOD SPECIMENOrdering Facility: [facility] Address: [address] [place] [address] Performed By: #### 5 8410-2 ####[facility] [id number] [place] [id number] [place] OPERATIVE NOon 10-18-2023 OPERATIVE NO HNO ID: [id number] Author: RICCO GARLAND MD Service: Urology Author Type: Physician Type: Operative Report Filed: 10/18/2023 11:07 Note Text: OPERATIVE/PROCEDURE REPORT LOG ID: [id number] Surgery/Procedure Date: 10/18/2023 Incision/Procedure Start Time: 8:31 AM Incision Close/Procedure End Time: 10:20 AM Surgeon(s)/Procedurali st(s) and Dance Therapist(s): Surgeon(s) and Role: * Ricco Garland MD [...] < 1 hr Anesthesia: General Findings: Stone [place]: 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 [facility] XR CHEST 1V FRONTAL PORTon 0 [...] normal limits. IMPRESSION: No acute cardiopulmonary process. Roving Hand: PSCB Transcribe Date/Time: Oct 18 2023 11:35A Dictated by : CHARLIE JOHNSON MD This examination was interpreted and the report reviewed and electronically signed by: CHARLIE JOHNSON MD on Oct 18 2023 11:35AM EST [id number] [facility] Bacteria Ur Culton 4 Bacteria identified Cx Nom (U) CULTURE, URINE: No growth (<1,000 CFU/ml) [facility] Comment on above: Performed By: #### 6 30-4 ####[facility] LABCLIA [id number] [place] [address] [place] Basic metabolic 2000 panelon 10-17-2023 Anion gap [Moles/Vol] 17 mmol/L Normal 9-18 [facility] Comment on above: Order Comment: Speci men Type: BLOOD SPECIMENOrdering Facility: [facility] Address: [address] [place] [address] Performed By: #### 2 4321-2 ####[facility] LABCLIA [id number] [place] [address] [place] Calcium [Mass/Vol] 9.7 mg/dL Normal 8.5-10.2 [facility] Comment on above: Order Comment: Speci men Type: BLOOD SPECIMENOrdering Facility: [facility] Address: [address] [place] [address] Performed By: #### 2 4321-2 ####[facility] LABCLIA [id number] [place] [address] [place] Chloride [Moles/Vol] 103 mmol/L Normal 97-105 [place] Comment on above: Order Comment: Speci men Type: BLOOD SPECIMENOrdering Facility: [facility] Address: [address] [place] [address] Performed By: #### 2 4321-2 ####[facility] LABCLIA [id number] [place] [address] [place] CO2 [Moles/Vol] 23 mmol/L Normal 22-30 [facility] Comment on above: Order Comment: Speci men Type: BLOOD SPECIMENOrdering Facility: [facility] Address: [address] [place] [address] Performed By: #### 2 4321-2 ####[facility] LABCLIA [id number] [place] [address] [place] Creatinine [Mass/Vol] 2.11 mg/dL High 0.58-0.96 [facility] Comment on above: Order Comment: Speci men Type: BLOOD SPECIMENOrdering Facility: [facility] Address: [address] [place] [address] Performed By: #### 2 4321-2 ####[facility] LABCLIA [id number] [place] [address] [place] [facility] [place] Creatinine and Glomerular filtration rate.predicted panel (S/P/Bld) 22 mL/min/1.73m??? Low >=60 [facility] Comment on above: Order Comment: Speci men Type: BLOOD SPECIMENOrdering Facility: [facility] Address: [address] [place] [address] Result Comment: Melissa mated Glomerular Filtration Rate [...] actual GFR. Performed By: #### 2 4321-2 ####[facility] LABIA [id number] [place] [address] [place] Glucose [Mass/Vol] 129 mg/dL High 74-99 [facility] Comment on above: Order Comment: Speci men Type: BLOOD SPECIMENOrdering Facility: [facility] Address: [address] [place] [address] Result Comment: The [place] Diabetes Association (ADA) provides guidance for cutoff [...] Standards of Medical Care in Diabetes 2016, [place] [employer]. Diabetes Care. 2016.39(Suppl 1). Performed By: #### 2 4321-2 ####[facility] LABIA [id number] [place] [address] [place] Potassium [Moles/Vol] 4.3 mmol/L Normal 3.7-5.1 [facility] Comment on above: Order Comment: Venkati men Type: BLOOD SPECIMENOrdering Facility: [facility] Address: [address] [place] [address] Performed By: #### 2 4321-2 ####[facility] [id number] [place] [address] [place] Sodium [Moles/Vol] 143 mmol/L Normal 136-144 [facility] Comment on above: Order Comment: Venkati men Type: BLOOD SPECIMENOrdering Facility: [facility] Address: [address] [place] [address] Performed By: #### 2 4321-2 ####[facility] LABCLIA [id number] [place] [address] [place] Urea nitrogen [Mass/Vol] 30 mg/dL High 04-16 [facility] Comment on above: Order Comment: Speci men Type: BLOOD SPECIMENOrdering Facility: [facility] Address: [address] [place] [address] Performed By: #### 2 4321-2 ####[facility] LABCLIA [id number] [place] [address] [place] CBC W Auto Differential pane l (Bld)on 10-17-2023 Basophils (Bld) [#/Vol] 10*3/uL Normal <0.11 [facility] Comment on above: Order Comment: Speci men Type: BLOOD SPECIMENOrdering Facility: [facility] Address: [address] [place] [address] Performed By: #### 5 7021-8 ####[facility] LABCLIA [id number] [place] [address] [place] Basophils/100 WBC (Bld) 0.1 % Normal [facility] Comment on above: Order Comment: Speci men Type: BLOOD SPECIMENOrdering Facility: [facility] Address: [address] [place] [address] Performed By: #### 5 7021-8 ####[facility] LABCLIA [id number] [place] [address] [place] Differential cell count method Nom (Bld) Auto [facility] Comment on above: Order Comment: Speci men Type: BLOOD SPECIMENOrdering Facility: [facility] Address: [address] [place] [address] Performed By: #### 5 7021-8 ####[facility] LABCLIA [id number] [place] [address] [place] Eosinophils (Bld) [#/Vol] 0.07 10*3/uL Normal <0.46 [facility] Comment on above: Order Comment: Speci men Type: BLOOD SPECIMENOrdering Facility: [facility] Address: [address] [place] [address] Performed By: #### 5 7021-8 ####[facility] LABCLIA [id number] [place] [address] [place] Eosinophils/100 WBC (Bld) 1.0 % [facility] Comment on above: Order Comment: Speci men Type: BLOOD SPECIMENOrdering Facility: [facility] Address: [address] [place] [address] Performed By: #### 5 7021-8 ####[facility] LABCLIA [id number] [place] [address] [place] Erythrocyte distribution width (RBC) [Ratio] 13.2 % Normal 11.5-15.0 [facility] Comment on above: Order Comment: Speci men Type: BLOOD SPECIMENOrdering Facility: [facility] Address: [address] [place] [address] Performed By: #### 5 7021-8 ####[facility] LABCLIA [id number] [place] [address] [place] Hematocrit (Bld) [Volume fraction] 40.4 % Normal 36.0-46.0 [facility] Comment on above: Order Comment: Speci men Type: BLOOD SPECIMENOrdering Facility: [facility] Address: [address] [place] [address] Performed By: #### 5 7021-8 ####[facility] LABCLIA [id number] [place] [address] [place] Hemoglobin (Bld) [Mass/Vol] 13.1 g/dL Normal 11.5-15.5 [facility] Comment on above: Order Comment: Speci men Type: BLOOD SPECIMENOrdering Facility: [facility] Address: [address] [place] [address] Performed By: #### 5 7021-8 ####[facility] LABCLIA [id number] [place] [address] [place] Immature granulocytes (Bld) [#/Vol] 10*3/uL Normal <0.10 [facility] Comment on above: Order Comment: Speci men Type: BLOOD SPECIMENOrdering Facility: [facility] Address: [address] [place] [address] Performed By: #### 5 7021-8 ####[facility] LABCLIA [id number] [place] [address] [place] Immature granulocytes/100 WBC (Bld) 0.3 % [facility] Comment on above: Order Comment: Speci men Type: BLOOD SPECIMENOrdering Facility: [facility] Address: [address] [place] [address] Performed By: #### 5 7021-8 ####[facility] LABCLIA [id number] [place] [address] [place] Lymphocytes (Bld) [#/Vol] 2.21 10*3/uL Normal 1.00-4.00 [facility] Comment on above: Order Comment: Speci men Type: BLOOD SPECIMENOrdering Facility: [facility] Address: [address] [place] [address] Performed By: #### 5 7021-8 ####[facility] LABCLIA [id number] [place] [address] [place] Lymphocytes/100 WBC (Bld) 30.8 % [facility] Comment on above: Order Comment: Speci men Type: BLOOD SPECIMENOrdering Facility: [facility] Address: [address] [place] [address] Performed By: #### 5 7021-8 ####[facility] LABCLIA [id number] [place] [address] [place] MCH (RBC) [Entitic mass] 31.9 pg Normal 26.0-34.0 [facility] Comment on above: Order Comment: Speci men Type: BLOOD SPECIMENOrdering Facility: [facility] Address: [address] [place] [address] Performed By: #### 5 7021-8 ####[facility] LABIA [id number] [place] [address] [place] MCHC (RBC) [Mass/Vol] 32.4 g/dL Normal 30.5-36.0 [facility] Comment on above: Order Comment: Speci men Type: BLOOD SPECIMENOrdering Facility: [facility] Address: [address] [place] [address] Performed By: #### 5 7021-8 ####[facility] [id number] [place] [address] [place] MCV (RBC) [Entitic vol] 98.3 fL Normal 80.0-100.0 [facility] Comment on above: Order Comment: Speci men Type: BLOOD SPECIMENOrdering Facility: [facility] Address: [address] [place] [address] Performed By: #### 5 7021-8 ####[facility] LABIA [id number] [place] [address] [place] Monocytes (Bld) [#/Vol] 0.68 10*3/uL Normal <0.87 [facility] Comment on above: Order Comment: Speci men Type: BLOOD SPECIMENOrdering Facility: [facility] Address: [address] [place] [address] Performed By: #### 5 7021-8 ####[facility] LABIA [id number] [place] [address] [place] Monocytes/100 WBC (Bld) 9.5 % Normal [facility] Comment on above: Order Comment: Speci men Type: BLOOD SPECIMENOrdering Facility: [facility] Address: [address] [place] [address] Performed By: #### 5 7021-8 ####[facility] LABCLIA [id number] [place] [address] [place] Neutrophils (Bld) [#/Vol] 4.19 10*3/uL Normal 1.45-7.50 [facility] Comment on above: Order Comment: Speci men Type: BLOOD SPECIMENOrdering Facility: [facility] Address: [address] [place] [address] Performed By: #### 5 7021-8 ####[facility] LABCLIA [id number] [place] [address] [place] Neutrophils/100 WBC (Bld) 58.3 % Normal [facility] Comment on above: Order Comment: Speci men Type: BLOOD SPECIMENOrdering Facility: [facility] Address: [address] [place] [address] Performed By: #### 5 7021-8 ####[facility] LABCLIA [id number] [place] [address] [place] Nucleated RBC (Bld) [#/Vol] 10*3/uL Normal <0.01 [facility] Comment on above: Order Comment: Speci men Type: BLOOD SPECIMENOrdering Facility: [facility] Address: [address] [place] [address] Performed By: #### 5 7021-8 ####[facility] LABCLIA [id number] [place] [address] [place] Nucleated RBC/100 WBC (Bld) [Ratio] 0.0 /100 WBC Normal [facility] Comment on above: Order Comment: Speci men Type: BLOOD SPECIMENOrdering Facility: [facility] Address: [address] [place] [address] Performed By: #### 5 7021-8 ####[facility] LABCLIA [id number] [place] [address] [place] Platelet mean volume (Bld) [Entitic vol] 10.4 fL Normal 9.0-12.7 [facility] Comment on above: Order Comment: Speci men Type: BLOOD SPECIMENOrdering Facility: [facility] Address: [address] [place] [address] Performed By: #### 5 7021-8 ####[facility] LABCLIA [id number] [place] [address] [place] Platelets (Bld) [#/Vol] 194 10*3/uL Normal 150-400 [facility] Comment on above: Order Comment: Speci men Type: BLOOD SPECIMENOrdering Facility: [facility] Address: [address] [place] [address] Performed By: #### 5 7021-8 ####[facility] LABIA [id number] [place] [address] [place] RBC (Bld) [#/Vol] 4.11 10*6/uL Normal 3.90-5.20 [facility] Comment on above: Order Comment: Speci men Type: BLOOD SPECIMENOrdering Facility: [facility] Address: [address] [place] [address] Performed By: #### 5 7021-8 ####[facility] LABIA [id number] [place] [address] [place] WBC (Bld) [#/Vol] 7.18 10*3/uL Normal 3.70-11.00 [facility] Comment on above: Order Comment: Speci men Type: BLOOD SPECIMENOrdering Facility: [facility] Address: [address] [place] [address] Performed By: #### 5 7021-8 ####[facility] LABIA [id number] [place] [address] [place] CONSULT PROGon 10-17-2023 CONSULT PROG HNO ID: [id number] Author: BENNY STINSON RPh Service: Pharmacy Author [...] indication Empiric Pharmacist may modify dose per [facility] dose optimization consult agreement Yes 10/17/23 1300 For medications which dose is dependent on renal function, a pharmacist will monitor renal function daily and adjust doses accordingly. Any dose adjustments needed based on changes in indication will require an LIP to enter a new order. Managing Pharmacist: Benny Stinson RPh, available at: [email or web address] If you have any questions, please contact Pharmacy at [phone]. Estimated Creatinine Clearance: 15.1 mL/min (A) (based [...] RPh October 17, 2023 3:17 PM [facility] HISTORY PHYSICALon HISTORY PHYSICAL HNO ID: [id number] Author: RICCO GARLAND MD Service: Urology Author [...] Dr. Dada Thomas MD Resident PGY-2 Urology [facility] [place] [facility] Pager [phone] For weekend or after hours issues [place] [phone] 11:03 AM 10/17/2023 HPI Jesús Nolan is [...] FACS Director, Surgical Stone Disease, [facility] [place] baseboard heating installer, [facility] [employer] Pager [phone] 10/17/2023 Normal [facility] PT panel Coag (PPP)on 2023 INR Coag (PPP) [Relative time] 1.0 {INR} Normal 0.9-1.3 [facility] Comment on above: Order Comment: Speci men Type: BLOOD SPECIMENOrdering Facility: [facility] Address: [address] [place] [address] Result Comment: Kristen min K Antagonist (VKA) Therapeutic Range: INR 2 to 3 (Target INR of 2.5) Note: For patients treated with VKA drugs, such as warfarin, the [place] [employer] 2012 Guideline recommends [...] HERNANDEZ, et al. Chest 2012, 141:7S-47S Shital TORRES et al. [facility] 2017, 70: 252-289 Performed By: #### 3 4528-0 ####[facility] LABCLIA [id number] [place] [id number] [place] PT Coag (PPP) [Time] 11.1 s Normal 9.7-13.[address] [facility] Comment on above: Order Comment: Speci men Type: BLOOD SPECIMENOrdering Facility: [facility] Address: [address] [place] [address] [place] [address] Performed By: #### 3 4528-0 ####[facility] LABCLIA [id number] [place] [id number] [facility] CNPNon 10-06-2023 CNPN Telephone (UROLUCIANA) JESÚS NOLAN ([id number]) 1935 F Date Time Provider Department 10/06/23 LETY GARCIA During your visit today, we recorded the following information about you: Lety Garcia RN 10/06/2023 12:04 PM Signed ----- Message from Fanny Nagel Whirley Operator II sent at 10/06/2023 10:22 AM EST ----- Regarding: discuss abx for UTI prior to surgery Contact: Ms! Pt's daughter, Maranda, has a few questions [...] Date Reviewed: 09/23/2023 Reviewed by: Stefanie Ocampo APRN.DITTO MACHINE OPERATOR, DNP - Fully Assessed Reason for Visit: [...] Encounter Status:Closed by LETY GARCIA on 10/07/23 [facility] Jenaro 09-29-2023 KENISHAN Telephone (UROSHARONN) JESÚS NOLAN ([id number]) 1935 F Date Time Provider Department 09/29/23 [...] Called and spoke with patients daughter and POA Maranda. Informed her that Dr. Garland has ordered Keflex to start 1 week prior to patients scheduled surgery. Informed her that this was sent to [facility] in [place] and patient should be sure to begin about 1 week prior and no sooner as it would select for resistant bacteria. Patients daughter voiced understanding. Provided office number if questions arise. Moni Chaudhari RN October 01, 2023 9:29 AM Allergies As of Date: 09/29/2023 (No Known Allergies) Date Reviewed: 09/23/2023 Reviewed by: tSefanie Ocampo APRN.DITTO MACHINE OPERATOR, DNP - Fully Assessed Reason for Visit: [...] Status:Closed by MONI CHAUDHARI on 09/29/23 [facility] Bacteria Ur Culton 3 Bacteria identified [...] , Intermediate >32 , Resistant >64 Abnormal [facility] Comment on above: Performed By: #### 6 30-4 ####[facility] LABCLIA [id number] [place] [address] [place] CBC W Auto Differential pane l (Bld)on 09-23-2023 Basophils (Bld) [#/Vol] 10*3/uL Normal <0.11 [facility] Comment on above: Order Comment: Speci men Type: BLOOD SPECIMENOrdering Facility: [facility] Address: [address] [place] [address] Performed By: #### 5 7021-8 ####[facility] LABCLIA [id number] [place] [address] [place] Basophils/100 WBC (Bld) 0.3 % Normal [facility] Comment on above: Order Comment: Speci men Type: BLOOD SPECIMENOrdering Facility: [facility] Address: [address] [place] [address] Performed By: #### 5 7021-8 ####[facility] LABCLIA [id number] [place] [address] [place] Differential cell count method Nom (Bld) Auto Normal [facility] Comment on above: Order Comment: Speci men Type: BLOOD SPECIMENOrdering Facility: [facility] Address: [address] [place] [address] Performed By: #### 5 7021-8 ####[facility] LABCLIA [id number] [place] [address] [place] Eosinophils (Bld) [#/Vol] 0.16 10*3/uL Normal <0.46 [facility] Comment on above: Order Comment: Speci men Type: BLOOD SPECIMENOrdering Facility: [facility] Address: [address] [place] [address] Performed By: #### 5 7021-8 ####[facility] LABCLIA [id number] [place] [address] [place] Eosinophils/100 WBC (Bld) 2.2 % Normal [facility] Comment on above: Order Comment: Speci men Type: BLOOD SPECIMENOrdering Facility: [facility] Address: [address] [place] [address] Performed By: #### 5 7021-8 ####[facility] LABCLIA [id number] [place] [address] [place] Erythrocyte distribution width (RBC) [Ratio] 14.0 % Normal 11.5-15.0 [facility] Comment on above: Order Comment: Speci men Type: BLOOD SPECIMENOrdering Facility: [facility] Address: [address] [place] [address] Performed By: #### 5 7021-8 ####[facility] LABCLIA [id number] [place] [address] [place] Hematocrit (Bld) [Volume fraction] 39.8 % Normal 36.0-46.0 [facility] Comment on above: Order Comment: Speci men Type: BLOOD SPECIMENOrdering Facility: [facility] Address: [address] [place] [address] Performed By: #### 5 7021-8 ####[facility] LABCLIA [id number] [place] [address] [place] Hemoglobin (Bld) [Mass/Vol] 12.6 g/dL Normal 11.5-15.5 [facility] Comment on above: Order Comment: Speci men Type: BLOOD SPECIMENOrdering Facility: [facility] Address: [address] [place] [address] Performed By: #### 5 7021-8 ####[facility] LABCLIA [id number] [place] [address] [place] Immature granulocytes (Bld) [#/Vol] 10*3/uL Normal <0.10 [facility] Comment on above: Order Comment: Speci men Type: BLOOD SPECIMENOrdering Facility: [facility] Address: [address] [place] [address] Performed By: #### 5 7021-8 ####[facility] LABCLIA [id number] [place] [address] [place] Immature granulocytes/100 WBC (Bld) 0.1 % Normal [facility] Comment on above: Order Comment: Speci men Type: BLOOD SPECIMENOrdering Facility: [facility] Address: [address] [place] [address] Performed By: #### 5 7021-8 ####[facility] LABCLIA [id number] [place] [address] [place] Lymphocytes (Bld) [#/Vol] 2.33 10*3/uL Normal 1.00-4.00 [facility] Comment on above: Order Comment: Speci men Type: BLOOD SPECIMENOrdering Facility: [facility] Address: [address] [place] [address] Performed By: #### 5 7021-8 ####[facility] LABCLIA [id number] [place] [address] [place] Lymphocytes/100 WBC (Bld) 31.4 % Normal [facility] Comment on above: Order Comment: Speci men Type: BLOOD SPECIMENOrdering Facility: [facility] Address: [address] [place] [address] Performed By: #### 5 7021-8 ####[facility] LABCLIA [id number] [place] [address] [place] MCH (RBC) [Entitic mass] 31.7 pg Normal 26.0-34.0 [facility] Comment on above: Order Comment: Speci men Type: BLOOD SPECIMENOrdering Facility: [facility] Address: [address] [place] [address] Performed By: #### 5 7021-8 ####[facility] LABCLIA [id number] [place] [address] [place] MCHC (RBC) [Mass/Vol] 31.7 g/dL Normal 30.5-36.0 [facility] Comment on above: Order Comment: Speci men Type: BLOOD SPECIMENOrdering Facility: [facility] Address: [address] [place] [address] Performed By: #### 5 7021-8 ####[facility] LABCLIA [id number] [place] [address] [place] MCV (RBC) [Entitic vol] 100.3 fL High 80.0-100.0 [facility] Comment on above: Order Comment: Speci men Type: BLOOD SPECIMENOrdering Facility: [facility] Address: [address] [place] [address] Performed By: #### 5 7021-8 ####[facility] LABCLIA [id number] [place] [address] [place] Monocytes (Bld) [#/Vol] 0.77 10*3/uL Normal <0.87 [facility] Comment on above: Order Comment: Speci men Type: BLOOD SPECIMENOrdering Facility: [facility] Address: [address] [place] [address] Performed By: #### 5 7021-8 ####[facility] LABCLIA [id number] [place] [address] [place] Monocytes/100 WBC (Bld) 10.4 % Normal [facility] Comment on above: Order Comment: Speci men Type: BLOOD SPECIMENOrdering Facility: [facility] Address: [address] [place] [address] Performed By: #### 5 7021-8 ####[facility] LABCLIA [id number] [place] [address] [place] Neutrophils (Bld) [#/Vol] 4.14 10*3/uL Normal 1.45-7.50 [facility] Comment on above: Order Comment: Speci men Type: BLOOD SPECIMENOrdering Facility: [facility] Address: [address] [place] [address] Performed By: #### 5 7021-8 ####[facility] LABCLIA [id number] [place] [address] [place] Neutrophils/100 WBC (Bld) 55.6 % Normal [facility] Comment on above: Order Comment: Speci men Type: BLOOD SPECIMENOrdering Facility: [facility] Address: [address] [place] [address] Performed By: #### 5 7021-8 ####[facility] LABCLIA [id number] [place] [address] [place] Nucleated RBC (Bld) [#/Vol] 10*3/uL Normal <0.01 [facility] Comment on above: Order Comment: Speci men Type: BLOOD SPECIMENOrdering Facility: [facility] Address: [address] [place] [address] Performed By: #### 5 7021-8 ####[facility] LABCLIA [id number] [place] [address] [place] Nucleated RBC/100 WBC (Bld) [Ratio] 0.0 /100 WBC Normal [facility] Comment on above: Order Comment: Speci men Type: BLOOD SPECIMENOrdering Facility: [facility] Address: [address] [place] [address] Performed By: #### 5 7021-8 ####[facility] LABCLIA [id number] [place] [address] [place] Platelet mean volume (Bld) [Entitic vol] 10.3 fL Normal 9.0-12.7 [facility] Comment on above: Order Comment: Speci men Type: BLOOD SPECIMENOrdering Facility: [facility] Address: [address] [place] [address] Performed By: #### 5 7021-8 ####[facility] LABCLIA [id number] [place] [address] [place] Platelets (Bld) [#/Vol] 228 10*3/uL Normal 150-400 [facility] Comment on above: Order Comment: Speci men Type: BLOOD SPECIMENOrdering Facility: [facility] Address: [address] [place] [address] Performed By: #### 5 7021-8 ####[facility] LABCLIA [id number] [place] [address] [place] RBC (Bld) [#/Vol] 3.97 10*6/uL Normal 3.90-5.20 [facility] Comment on above: Order Comment: Speci men Type: BLOOD SPECIMENOrdering Facility: [facility] Address: [address] [place] [address] Performed By: #### 5 7021-8 ####[facility] LABCLIA [id number] [place] [address] [place] WBC (Bld) [#/Vol] 7.43 10*3/uL Normal 3.70-11.00 [facility] Comment on above: Order Comment: Speci men Type: BLOOD SPECIMENOrdering Facility: [facility] Address: [address] [place] [address] Performed By: #### 5 7021-8 ####[facility] LABCLIA [id number] [place] [address] [place] CONFIRM BLOOD TYPEon 12-28-2 023 ABO A Normal [facility] Comment on above: Order Comment: Speci men Type: BLOOD SPECIMENOrdering Facility: [facility] Address: [address] [place] [address] Performed By: #### C ONABO ####[facility] BLOOD BANKCLIA [id number] [place] [address] [place] Rh Nom (Bld) Positive Normal [facility] Comment on above: Order Comment: Speci men Type: BLOOD SPECIMENOrdering Facility: [facility] Address: [address] [place] [address] Performed By: #### C ONAB ####[facility] [id number] [place] [address] [place] Comprehensive metabolic 2000 panelon 09-23-2023 Albumin [Mass/Vol] 4.3 g/dL Normal 3.9-4.9 [facility] Comment on above: Order Comment: Speci men Type: BLOOD SPECIMENOrdering Facility: [facility] Address: [address] [place] [address] Performed By: #### 2 4323-8 ####[facility] LABCLIA [id number] [place] [address] [place] ALP [Catalytic activity/Vol] 96 U/L Normal 34-123 [facility] Comment on above: Order Comment: Speci men Type: BLOOD SPECIMENOrdering Facility: [facility] Address: [address] [place] [address] Performed By: #### 2 4323-8 ####[facility] LABCLIA [id number] [place] [address] [place] ALT [Catalytic activity/Vol] 17 U/L Normal 7-38 [facility] Comment on above: Order Comment: Speci men Type: BLOOD SPECIMENOrdering Facility: [facility] Address: [address] [place] [address] Performed By: #### 2 4323-8 ####[facility] LABCLIA [id number] [place] [address] [place] Anion gap [Moles/Vol] 15 mmol/L Normal 9-18 [facility] Comment on above: Order Comment: Speci men Type: BLOOD SPECIMENOrdering Facility: [facility] Address: [address] [place] [address] Performed By: #### 2 4323-8 ####[facility] LABCLIA [id number] [place] [address] [place] AST [Catalytic activity/Vol] 22 U/L Normal 13-35 [facility] Comment on above: Order Comment: Speci men Type: BLOOD SPECIMENOrdering Facility: [facility] Address: [address] [place] [address] Performed By: #### 2 4323-8 ####[facility] LABCLIA [id number] [place] [address] [place] Bilirubin [Mass/Vol] 0.3 mg/dL Normal 0.2-1.3 [place] Comment on above: Order Comment: Speci men Type: BLOOD SPECIMENOrdering Facility: [facility] Address: [address] [place] [address] Performed By: #### 2 4323-8 ####[facility] LABCLIA [id number] [place] [address] [place] Calcium [Mass/Vol] 9.4 mg/dL Normal 8.5-10.2 [facility] Comment on above: Order Comment: Speci men Type: BLOOD SPECIMENOrdering Facility: [facility] Address: [address] [place] [address] Performed By: #### 2 4323-8 ####[facility] LABCLIA [id number] [place] [address] [place] Chloride [Moles/Vol] 103 mmol/L Normal 97-105 [place] Comment on above: Order Comment: Speci men Type: BLOOD SPECIMENOrdering Facility: [facility] Address: [address] [place] [address] Performed By: #### 2 4323-8 ####[facility] LABCLIA [id number] [place] [address] [place] CO2 [Moles/Vol] 26 mmol/L Normal 22-30 [facility] Comment on above: Order Comment: Speci men Type: BLOOD SPECIMENOrdering Facility: [facility] Address: [address] [place] [address] Performed By: #### 2 4323-8 ####[facility] LABIA [id number] [address] [place] Creatinine [Mass/Vol] 2.05 mg/dL High 0.58-0.96 [facility] Comment on above: Order Comment: Speci men Type: BLOOD SPECIMENOrdering Facility: [facility] Address: [address] [place] [address] Performed By: #### 2 4323-8 ####[facility] LABIA [id number] [place] [address] [place] Creatinine and Glomerular filtration rate.predicted panel (S/P/Bld) 23 mL/min/1.73m??? Low >=60 [facility] Comment on above: Order Comment: Venkati men Type: BLOOD SPECIMENOrdering Facility: [facility] Address: [address] [place] [address] Result Comment: Melissa mated Glomerular Filtration Rate [...] actual GFR. Performed By: #### 2 4323-8 ####[facility] LABIA [id number] [place] [address] [place] Glucose [Mass/Vol] 107 mg/dL High 74-99 [facility] Comment on above: Order Comment: Speci men Type: BLOOD SPECIMENOrdering Facility: [facility] Address: [address] [place] [address] Result Comment: The [place] [employer] (ADA) provides guidance for cutoff [...] Standards of Medical Care in Diabetes 2016, [place] [employer]. Diabetes Care. 2016.39(Suppl 1). Performed By: #### 2 4323-8 ####[facility] LABCLIA [id number] [place] [address] [place] Potassium [Moles/Vol] 4.0 mmol/L Normal 3.7-5.1 [facility] Comment on above: Order Comment: Speci men Type: BLOOD SPECIMENOrdering Facility: [facility] Address: [address] [place] [address] Performed By: #### 2 4323-8 ####[facility] LABCLIA [id number] [place] [address] [place] Protein [Mass/Vol] 7.0 g/dL Normal 6.3-8.0 [facility] Comment on above: Order Comment: Speci men Type: BLOOD SPECIMENOrdering Facility: [facility] Address: [address] [place] [address] Performed By: #### 2 4323-8 ####[facility] LABCLIA [id number] [place] [address] [place] Sodium [Moles/Vol] 144 mmol/L Normal 136-144 [facility] Comment on above: Order Comment: Speci men Type: BLOOD SPECIMENOrdering Facility: [facility] Address: [address] [place] [address] Performed By: #### 2 4323-8 ####[facility] LABCLIA [id number] [place] [address] [place] Urea nitrogen [Mass/Vol] 30 mg/dL High 7-21 [facility] Comment on above: Order Comment: Speci men Type: BLOOD SPECIMENOrdering Facility: [facility] Address: [address] [place] [address] Performed By: #### 2 4323-8 ####[facility] LABCLIA [id number] [facility]ITALNannette RODRIGUES [id number] [id number] [place] ECG COMPLETEon 09-23-2023 ECG COMPLETE Ventricular Rate : 6 2 BPM Atrial Rate : 62 BPM P-R Interval : 202 ms QRS Duration : 90 ms Q-T Interval : 424 ms QTC Calculation(Bazett) : 430 ms Calculated P [place] : 100 degrees Calculated R [place] : -29 degrees Calculated T [place] : 17 degrees NORMAL SINUS RHYTHM LEFT VENTRICULAR HYPERTROPHY POSSIBLE ANTEROSEPTAL MYOCARDIAL INFARCTION , 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 ECG Confirmed by MITZI PACHECO MD () on 10/13/2023 8:12:00 AM NAME : JESÚS NOLAN PID : [id number] : 1935 Gender : Female Race : ORD : [id number] Procedure Date : Sep 23 2023 15:23:33 [...] OCAMPO Acquired by : VERONIKA CONWAY [facility] ECG COMPLETE Ventricular Rate : 7 5 BPM Atrial Rate : 75 BPM QRS Duration : 108 ms Q-T Interval : 410 ms QTC Calculation(Bazett) : 457 ms Calculated R [place] : -32 degrees Calculated T [place] : 97 degrees 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 , 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 ECG Reconfirmed by KIAN CLARK MD ([id number]) on 09/23/2023 8:45:27 PM NAME : JESÚS NOLAN PID : [id number] : 1935 Gender : Female Race : ORD : [id number] Procedure Date : Sep 23 2023 12:56:29 Edit Date : Sep 23 2023 20:45:28 Diagnosis: 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 , 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 ECG Reconfirmed by KIAN CLARK MD ([id number]) on 09/23/2023 8:45:27 PM Test Reason : Location : 119 : A17 Overread By : KIAN CLARK MD Edited By : KIAN CLARK MD Referred By : , Acquired by : AYSESANTI [facility] HISTORY PHYSICALon HISTORY PHYSICAL HNO ID: [id number] Author: STEFANIE OCAMPO APRN.DITTO MACHINE OPERATOR, DNP Service: ? Author Type: Nurse Practitioner [...] 35 kg/m2 Non-male patient STOP-Bang Score: 1 [id number] Score: Hypertension history: Yes [id number] Score: 1 ARISCAT Score: Age: >80 Preoperative [...] fevers. Neurological: No history of TIA's, stroke, VIDEO PRODUCER tumor, impaired sensorium, hemiplegia, paraplegia or quadraplegia. No neurological symptoms or problems. Respiratory: No history of current cough or dyspnea, or pneumonia in the past 6 weeks. No history of respiratory/pulmonary symptoms or problems. Cardiovascular: Positive for: hypertension (on rx) Negative for: abdominal aortic aneurysm, AICD/PPM, anticoagulation (more content not included)... [facility] TYPE AND SCREEN,30 DAYon ABO A [facility] Comment on above: Order Comment: Speci men Type: BLOOD SPECIMENOrdering Facility: [facility] Address: [address] [place] [address] Performed By: #### T [id number] ####CC MAIN BLOOD BANKCLIA [id number] [place] [address] [place] HISTORICAL AB SCR STATUS Negative Normal [facility] Comment on above: Order Comment: Speci men Type: BLOOD SPECIMENOrdering Facility: [facility] Address: [address] [place] [address] Performed By: #### T SCR30 ####CC MAIN BLOOD BANKCLIA [id number] [place] [address] [place] Rh Nom (Bld) Positive Normal [facility] Comment on above: Order Comment: Speci men Type: BLOOD SPECIMENOrdering Facility: [facility] Address: [address] [place] [address] Performed By: #### T SCR30 ####CC [facility] [id number] [address] OF [facility] Consultation Noteon 09-12-20 23 Consultation Note [id number]#1.0 0TIFF Normal [facility] Bacteria Ur Culton 3 Bacteria identified Cx Nom (U) CULTURE, URINE: No growth (<1,000 CFU/ml) [facility] Comment on above: Performed By: #### 6 30-4 ####[facility] LABIA [id number] [address] CNOVon 09-07-2023 CNOV Office Visit (UROLMN ) JESÚS NOLAN ([id number]) 1935 F Date Time Provider Department 09/07/23 [...] based on size, location, hounsfield units and bguv-ga-harxt distance: 0% 3. Ureteroscopy - risks of [...] with more than 50% of the total kjus-lg-wvue time of the visit devoted to patient counseling/coordinatio n of care. Ricco Garland MD, FACS Director, Surgical Stone Disease, [facility] [place] baseboard heating installer, [facility] [employer] [facility] Pager [phone] 09/07/2023 Referring Provider: SELF [200] Allergies As of Date: 09/07/2023 (No Known Allergies) Date Reviewed: 09/07/2023 Reviewed by: Karen aClvillo OCCA - Fully Assessed Primary Visit Diagnosis:Staghorn calculus [N20.0] Other Visit Diagnoses:Abnormal urinalysis [R82.90] History of recurrent UTIs [Z87.440] Essential hypertension [I10] Constipation, unspecified constipation type [K59.00] Arthritis [M19.90] Status post hip surgery [Z98.890] Order(s):URINE CULTURE [SQURCUL] Order #: [id number]. #:[id number] estradiol (ESTRACE) 0.01 % (0.1 mg/gram) vaginal creamUse 1 g vaginally one time a week.Disp: 42 gRfl: 1 Prescriptions (more content not included)... [facility] URINALYSIS, REFLEX MICROSCOP ICon 09-07-2023 Bacteria LM.HPF (Urine sed) [#/Area] Few Abnormal None Seen [facility] Comment on above: Order Comment: Speci men Type: URINE SPECIMENOrdering Facility: [facility] Address: [address] [place] [address] [place] [address] Performed By: #### L [id number] ####[facility] LABCLIA [id number] [place] [address] [place] Bilirubin Ql (U) Negative Normal Negative [facility] Comment on above: Order Comment: Speci men Type: URINE SPECIMENOrdering Facility: [facility] Address: [address] [place] [address] Performed By: #### L [id number] ####[facility] LABIA [id number] [place] [address] [place] Clarity (Unsp spec) Clear Normal Clear [facility] Comment on above: Order Comment: Speci men Type: URINE SPECIMENOrdering Facility: [facility] Address: [address] [place] [address] Performed By: #### L [id number] ####[facility] LABIA [id number] [place] [address] [place] Color (U) Light Yellow Normal Yellow [facility] Comment on above: Order Comment: Speci men Type: URINE SPECIMENOrdering Facility: [facility] Address: [address] [place] [address] Performed By: #### L [id number] ####[facility] LABIA [id number] [place] [address] [place] Epithelial cells LM.HPF (Urine sed) [#/Area] Few Normal [facility] Comment on above: Order Comment: Speci men Type: URINE SPECIMENOrdering Facility: [facility] Address: [address] [place] [address] Performed By: #### L [id number] ####[facility] LABIA [id number] [place] [address] [place] Glucose Test strip (U) [Mass/Vol] Negative Normal Trace, Negative [facility] Comment on above: Order Comment: Speci men Type: URINE SPECIMENOrdering Facility: [facility] Address: [address] [place] [address] Performed By: #### L [id number] ####[facility] LABCLIA [id number] [place] [address] [place] Hemoglobin Ql (U) Negative Normal Negative, Trace [facility] Comment on above: Order Comment: Speci men Type: URINE SPECIMENOrdering Facility: [facility] Address: [address] [place] [address] Performed By: #### L [id number] ####[facility] LABCLIA [id number] [place] [address] [place] Hyaline casts (Urine sed) [#/Area] 1-3 /LPF Abnormal 0 /LPF [facility] Comment on above: Order Comment: Speci men Type: URINE SPECIMENOrdering Facility: [facility] Address: [address] [place] [address] Performed By: #### L [id number] ####[facility] LABCLIA [id number] [place] [address] [place] Ketones Ql (U) Negative Normal Negative, Trace [facility] Comment on above: Order Comment: Speci men Type: URINE SPECIMENOrdering Facility: [facility] Address: [address] [place] [address] Performed By: #### L [id number] ####[facility] LABCLIA [id number] [place] [address] [place] Leukocyte esterase Test strip Ql (U) 500 Dorian/uL Abnormal Negative, 25 Dorian/uL [facility] Comment on above: Order Comment: Speci men Type: URINE SPECIMENOrdering Facility: [facility] Address: [address] [place] [address] Performed By: #### L [id number] ####[facility] LABCLIA [id number] [place] [address] [place] Nitrite Ql (U) Negative Normal Negative [facility] Comment on above: Order Comment: Speci men Type: URINE SPECIMENOrdering Facility: [facility] Address: [address] [place] [address] Performed By: #### L [id number] ####[facility] LABIA [id number] [place] [address] [place] pH (U) 5.5 [pH] Normal 5.0-8.0 [facility] Comment on above: Order Comment: Speci men Type: URINE SPECIMENOrdering Facility: [facility] Address: [address] [place] [address] Performed By: #### L [id number] ####[facility] [id number] [place] [address] [place] Protein (U) [Mass/Vol] Trace Normal Trace , Negative [facility] Comment on above: Order Comment: Speci men Type: URINE SPECIMENOrdering Facility: [facility] Address: [address] [place] [address] Performed By: #### L [id number] ####[facility] [id number] [place] [address] [place] RBC LM.HPF (Urine sed) [#/Area] 3-5 /HPF Abnormal 0-3 /HPF [facility] Comment on above: Order Comment: Speci men Type: URINE SPECIMENOrdering Facility: [facility] Address: [address] [place] [address] Performed By: #### L [id number] ####[facility] [id number] [place] [address] [place] Specific gravity (U) [Rel density] 1.014 Normal 1.005-1.030 [facility] Comment on above: Order Comment: Speci men Type: URINE SPECIMENOrdering Facility: [facility] Address: [address] [place] [address] Performed By: #### L [id number] ####[facility] [id number] [place] [address] [place] Urobilinogen Ql (U) Negative Normal Negative [facility] Comment on above: Order Comment: Speci men Type: URINE SPECIMENOrdering Facility: [facility] Address: [address] [place] [address] Performed By: #### L [id number] ####[facility] LABCLIA [id number] [place] [address] [place] WBC LM.HPF (Urine sed) [#/Area] /[HPF] Abnormal 0-5 /HPF [facility] Comment on above: Order Comment: Speci men Type: URINE SPECIMENOrdering Facility: [facility] Address: [address] [place] [address] Performed By: #### L [id number] ####[facility] LABCLIA [id number] [place] [address] [place] Consultation Noteon 09-06-20 Consultation Note [id number]#1.0 0TIFF Normal [facility] Consultation Noteon 09-03-20 Consultation Note [id number]#1.0 0TIFF Normal [facility] Lab Reportson 09-03-2023 Lab Reports [id number]#1.0 0TIFF Normal [facility] Basic Metabolic Panelon Anion gap [Moles/Vol] 11.2 mmol/L Normal 6.0-15.0 [facility] Comment on above: Performed By: #### EDITA Warren, CBCNO ####[facility] [address] [place] [address] [facility] Calcium [Mass/Vol] 8.0 mg/dL Low 8.6-10.3 [facility] Comment on above: Performed By: #### EDITA Warren, CBCNO ####[facility] [address] [place] [address] [facility] Chloride [Moles/Vol] 110 mmol/L High 98-107 [facility] Comment on above: Performed By: #### EDITA Warren, CBCNO ####[facility] [address] [place] [address] [facility] CO2 [Moles/Vol] 25.2 mmol/L Normal 21.0-31.0 [facility] Comment on above: Performed By: #### EDITA Warren, CBCNO ####[place] [address] [place] [id number] [facility] Creatinine [Mass/Vol] 2.30 mg/dL High 0.60-1.20 [facility] Comment on above: Performed By: #### EDITA Warren, CBCNO ####[place] [address] [place] [id number] [place] Creatinine Clr Calc Pharmacy 14.54 [facility] Comment on above: Performed By: #### EDITA Warren, CBCNO ####[place] [address] [place] [id number] [place] GFR/1.73 sq M.predicted MDRD (S/P/Bld) [Vol rate/Area] 20.194 mL/min/{1.73_m2} [facility] Comment on above: Performed By: #### EDITA Warren, CBCNO ####[place] [address] [place] [id number] [facility] Glucose [Mass/Vol] 109 mg/dL High 70-100 [facility] Comment on above: Result Comment: [place] Glucose Reference Range is dependent on time and content of last meal. Glucose of more than 200 mg/dL in a nonstressed, ambulatory subject supports the diagnosis of Diabetes Mellitus. ADA recommended reference range Performed By: #### EDITA Warren, CBCNO ####[facility] [id number] [place] [id number] [facility] Potassium [Moles/Vol] 4.4 mmol/L Normal 3.5-5.1 [facility] Comment on above: Performed By: #### EDITA Warren, CBCNO ####[facility] [address] [place] [id number] [place] Sodium [Moles/Vol] 142 mmol/L Normal 136-145 [facility] Comment on above: Performed By: #### EDITA Warren CBCNO ####[place] [id number] [facility] Urea nitrogen [Mass/Vol] 31 mg/dL High 7-25 [facility] Comment on above: Performed By: #### EDITA Warren, CBCNO ####[address] Hemogram CBC Without Diffon 09-02-2023 Erythrocyte distribution width (RBC) [Ratio] 14.1 % Normal 11.9-15.3 [facility] Comment on above: Performed By: #### EDITA Warren CBCNO ####[address] Hematocrit (Bld) [Volume fraction] 32.6 % Low 34.0-46.4 [facility] Comment on above: Performed By: #### EDITA Warren CBCNO ####[address] Hemoglobin (Bld) [Mass/Vol] 10.9 g/dL Low 11.8-15.4 [facility] Comment on above: Performed By: #### EDITA Warren CBCNO ####[address] MCH (RBC) [Entitic mass] 31.6 pg Normal 24.7-34.3 [facility] Comment on above: Performed By: #### EDITA Warren, CBCNO ####[place] [id number] [facility] MCV (RBC) [Entitic vol] 94.7 fL Normal 80-100 F [facility] Comment on above: Performed By: #### EDITA Warren, CBCNO ####[place] [id number] [facility] Mean Corpuscular HGB Conc 33.4 g/dL Normal 32.0-35.0 [facility] Comment on above: Performed By: #### EDITA Warren, CBCNO ####[place] [address] [place] [address] [facility] Platelet mean volume (Bld) [Entitic vol] 8.8 fL Normal 6.3-10.7 [facility] Comment on above: Result Comment: PERF ORMED BY: [facility] [address] [place] [address] PATHOLOGIST [employer]OPLESOFT DEVELOPER BARBARA MUNOZ M.D. Performed By: #### M EDITA Padgett, CBCNO ####[place] [address] [place] [address] [facility] Platelets (Bld) [#/Vol] 192 10*3/uL Normal 150-450 [facility] Comment on above: Performed By: #### M EDITA Padgett, CBCNO ####[address] [address] [facility] RBC (Bld) [#/Vol] 3.44 10*6/uL Low 3.60-5.00 [facility] Comment on above: Performed By: #### M EDITA Padgett, CBCNO ####[address] [address] [facility] WBC (Bld) [#/Vol] 7.8 10*3/uL Normal 3.8-11.6 [facility] Comment on above: Performed By: #### M EDITA Padgett, CBCNO ####[address] [address] [facility] Magnesiumon 09-02-2023 Magnesium [Mass/Vol] 2.5 mg/dL Normal 1.9-2.7 [facility] Comment on above: Result Comment: PERF ORMED BY: [facility] [address] [place] [address] PATHOLOGIST [employer]OPLESO[employer] DEVELOPER BARBARA MUNOZ M.D. Performed By: #### M EDITA Padgett, CBCNO ####[place] [id number] [facility] Ammoniaon 09-01-2023 Ammonia (P) [Moles/Vol] 23 umol/L Normal 11-35 [facility] Comment on above: Result Comment: PERF ORMED BY: [facility] [address] [place] [address] PATHOLOGIST [employer] DEVELOPER BARBARA MUNOZ M.D. Performed By: #### A MM ####[address] Basic Metabolic Panelon 12-0 -2022 Anion gap [Moles/Vol] 11.9 mmol/L Normal 6.0-15.0 [facility] Comment on above: Performed By: #### V [id number], MG, CBC, BMP, TSH3 ####[address] Calcium [Mass/Vol] 8.4 mg/dL Low 8.6-10.3 [facility] Comment on above: Performed By: #### V [id number], MG, CBC, BMP, TSH3 ####[place] [id number] [facility] Chloride [Moles/Vol] 111 mmol/L High 98-107 [facility] Comment on above: Performed By: #### V [id number], MG, CBC, BMP, TSH3 ####[address] CO2 [Moles/Vol] 23.2 mmol/L Normal 21.0-31.0 [facility] Comment on above: Performed By: #### V [id number], MG, CBC, BMP, TSH3 ####[place] [id number] [facility] Creatinine [Mass/Vol] 2.45 mg/dL High 0.60-1.20 [facility] Comment on above: Performed By: #### V [id number], MG, CBC, BMP, TSH3 ####[place] [address] [facility] Creatinine Clr Calc Pharmacy 13.65 Normal [facility] Comment on above: Performed By: #### V [id number], MG, CBC, BMP, TSH3 ####[place] [address] [place] [id number] [facility] GFR/1.73 sq M.predicted MDRD (S/P/Bld) [Vol rate/Area] 18.720 mL/min/{1.73_m2} [facility] Comment on above: Performed By: #### V [id number], MG, CBC, BMP, TSH3 ####[place] [address] [facility] Glucose [Mass/Vol] 90 mg/dL Normal 70-100 [facility] Comment on above: Result Comment: [facility] Glucose Reference Range is dependent on time and content of last meal. Glucose of more than 200 mg/dL in a nonstressed, ambulatory subject supports the diagnosis of Diabetes Mellitus. ADA recommended reference range Performed By: #### V [id number], MG, CBC, BMP, TSH3 ####[place] [address] [facility] Potassium [Moles/Vol] 4.1 mmol/L Normal 3.5-5.1 [facility] Comment on above: Performed By: #### V [id number], MG, CBC, BMP, TSH3 ####[place] [address] [facility] Sodium [Moles/Vol] 142 mmol/L Normal 136-145 [facility] Comment on above: Performed By: #### V [id number], MG, CBC, BMP, TSH3 ####[place] [address] [facility] Urea nitrogen [Mass/Vol] 28 mg/dL High 7-25 [facility] Comment on above: Performed By: #### V [id number], MG, CBC, BMP, TSH3 ####[place] [id number] [facility] Blood Cultureon 09-01-2023 Bacteria identified Cx Nom (Bld) PT IS BEING MEDICATED NO GROWTH 5 DAYS PERFORMED BY: [facility] [address] [place] [id number] PATHOLOGIST [employer] DEVELOPER BARBARA MUNOZ M.D. [facility] Comment on above: Performed By: #### L SARANYA FUNESLD #### [facility] [address] [place] [address] Bacteria identified Cx Nom (Bld) PT IS BEING MEDICATED NO GROWTH 5 DAYS PERFORMED BY: [place] [address] PATHOLOGIST [employer] DEVELOPER BARBARA MUNOZ M.D. [facility] Comment on above: Performed By: #### L SARANYA FUNESLD #### [facility] [address] [place] [address] CT abdomen pelvis wo conon 1 11-02-2022 CT abdomen pelvis wo con [facility] Main [place] [address] [place] [address] CT Scan Report Signed Patient: Jesús Nolan MR#: [id number] 34 : 1935 Acct:[id number] Age/Sex: 88 / F ADM Date: 08/31/23 Loc: Room: [address] [place] [address] Type: ADM IN Attending Dr: Riky Bundy [...] Isabel Vega M.D.09/01/2023 6:29 AM Dictation Location: [place] [address] Transcribed By: [facility] 09/01/23628 Dictated By: Isabel Vega MD 09/01/23622 Signed By: 09/01/23628 [facility] CT head/brain wo [facility] 09-01 CT head/brain wo [facility] [place] [address] CT Scan Report Signed Patient: Jesús Nolan MR#: [id number] [birth year] : 1935 Acct:[id number] Age/Sex: 88 / F ADM Date: 08/31/23 Loc: Room: [address] [place] [address] Type: ADM IN Attending Dr: Riky Bundy [...] Isabel Vega M.D.09/01/2023 6:14 AM Dictation Location: [place] [address] Transcribed By: [facility] 09/01/23613 Dictated By: Isabel Vega MD 09/01/23611 Signed By: 09/01/23613 Normal [facility] Complete Blood Count Auto Di ffon 09-01-2023 Basophils (Bld) [#/Vol] 0.0 10*3/uL Normal 0.0-0.2 [facility] Comment on above: Result Comment: PERF ORMED BY: [facility] [address] [place] [id number] PATHOLOGIST [employer] DEVELOPER BARBARA MUNOZ M.D. Performed By: #### V [id number], MG, CBC, BMP, TSH3 ####[place] [address] Basophils/100 WBC (Bld) 0.3 % Normal . F [facility] Comment on above: Performed By: #### V [id number], MG, CBC, BMP, TSH3 ####[place] [address] Eosinophils (Bld) [#/Vol] 0.1 10*3/uL Normal 0.0-0.45 [facility] Comment on above: Performed By: #### V [id number], MG, CBC, BMP, TSH3 ####[place] [address] Eosinophils/100 WBC (Bld) 1.6 % Normal . [facility] Comment on above: Performed By: #### V [id number], MG, CBC, BMP, TSH3 ####[address] Erythrocyte distribution width (RBC) [Ratio] 14.0 % Normal 11.9-15.3 [facility] Comment on above: Performed By: #### V [id number], MG, CBC, BMP, TSH3 ####[address] Hematocrit (Bld) [Volume fraction] 35.9 % Normal 34.0-46.4 [facility] Comment on above: Performed By: #### V [id number], MG, CBC, BMP, TSH3 ####[address] Hemoglobin (Bld) [Mass/Vol] 11.9 g/dL Normal 11.8-15.4 [facility] Comment on above: Performed By: #### V [id number], MG, CBC, BMP, TSH3 ####[address] Lymphocytes (Bld) [#/Vol] 1.5 10*3/uL Normal 1.00-4.8 [facility] Comment on above: Performed By: #### V [id number], MG, CBC, BMP, TSH3 ####[address] Lymphocytes/100 WBC (Bld) 19.5 % Normal . [facility] Comment on above: Performed By: #### V [id number], MG, CBC, BMP, TSH3 ####[address] MCH (RBC) [Entitic mass] 31.2 pg Normal 24.7-34.3 [facility] Comment on above: Performed By: #### V [id number], MG, CBC, BMP, TSH3 ####[address] MCV (RBC) [Entitic vol] 94.6 fL Normal 80-100 F [facility] Comment on above: Performed By: #### V [id number], MG, CBC, BMP, TSH3 ####[address] Mean Corpuscular HGB Conc 33.0 g/dL Normal 32.0-35.0 [facility] Comment on above: Performed By: #### V [id number], MG, CBC, BMP, TSH3 ####[address] Monocytes (Bld) [#/Vol] 1.0 10*3/uL High 0.0-0.8 [facility] Comment on above: Performed By: #### V [id number], MG, CBC, BMP, TSH3 ####[address] Monocytes/100 WBC (Bld) 12.4 % Normal . F [facility] Comment on above: Performed By: #### V [id number], MG, CBC, BMP, TSH3 ####[address] Neutrophils (Bld) [#/Vol] 5.2 10*3/uL Normal 1.8-7.7 [facility] Comment on above: Performed By: #### V [id number], MG, CBC, BMP, TSH3 ####[address] Neutrophils/100 WBC (Bld) 66.2 % Normal . [facility] Comment on above: Performed By: #### V [id number], MG, CBC, BMP, TSH3 ####[address] NRBC% 0.0 /100{WBC} Normal 0-0.5 [facility] Comment on above: Performed By: #### V [id number], MG, CBC, BMP, TSH3 ####[facility] Platelet mean volume (Bld) [Entitic vol] 8.2 fL Normal 6.3-10.7 [facility] Comment on above: Performed By: #### V [id number], MG, CBC, BMP, TSH3 ####[facility] Platelets (Bld) [#/Vol] 216 10*3/uL Normal 150-450 [facility] Comment on above: Performed By: #### V [id number], MG, CBC, BMP, TSH3 ####[facility] RBC (Bld) [#/Vol] 3.80 10*6/uL Normal 3.60-5.00 [facility] Comment on above: Performed By: #### V [id number], MG, CBC, BMP, TSH3 ####[place] [address] WBC (Bld) [#/Vol] 7.8 10*3/uL Normal 3.8-11.6 [facility] Comment on above: Performed By: #### V [id number], MG, CBC, BMP, TSH3 ####[place] [address] Consultation Noteon 09-01-20 23 Consultation Note [id number]#1.0 0TIFF Normal [facility] Dipstick and Microscopicon 1 11-02-2022 Appearance (U) Cloudy Critically abnormal Clear [facility] Comment on above: Order Comment: Name Collection Type:: Voided Performed By: #### C UU, ADDONUAPLUS #### [facility] [address] Bacteria,Urine None Seen Normal None Seen [facility] Comment on above: Order Comment: Name Collection Type:: Voided Result Comment: PERF ORMED BY: [place] [address] PATHOLOGIST [employer] DEVELOPER BARBARA MUNOZ M.D. Performed By: #### C UU, ADDONUAPLUS #### [facility] [address] [place] [address] [place] Bilirubin,Urine Negative Normal Negative [facility] Comment on above: Order Comment: Name Collection Type:: Voided Performed By: #### C UU, ADDONUAPLUS #### [facility] [address] [place] [address] [place] Color (U) Yellow Normal Yellow [facility] Comment on above: Order Comment: Name Collection Type:: Voided Performed By: #### C UU, ADDONUAPLUS #### [address] Glucose Ql (U) Normal Normal Normal [facility] Comment on above: Order Comment: Name Collection Type:: Voided Performed By: #### C UU, ADDONUAPLUS #### [facility] [address] [place] [address] [place] Ketones Ql (U) Negative Normal Negative [facility] Comment on above: Order Comment: Name Collection Type:: Voided Performed By: #### C UU, ADDONUAPLUS #### [facility] [address] [place] [address] Leukocyte esterase Test strip Ql (U) 4+ High Negative [facility] Comment on above: Order Comment: Name Collection Type:: Voided Performed By: #### C UU, ADDONUAPLUS #### [facility] [address] [place] [address] [place] Nitrite,Urine Negative Normal Negative [facility] Comment on above: Order Comment: Name Collection Type:: Voided Performed By: #### C UU, ADDONUAPLUS #### [facility] [address] [place] [address] [place] Occult Blood,Urine Trace High Negative [facility] Comment on above: Order Comment: Name Collection Type:: Voided Result Comment: PERF ORMED BY: [place] [address] PATHOLOGIST [employer] DEVELOPER BARBARA MUNOZ M.D. Performed By: #### C UU, ADDONUAPLUS #### [address] pH (U) 6.0 [pH] Normal 5.0-9.0 [facility] Comment on above: Order Comment: Name Collection Type:: Voided Performed By: #### C UU, ADDONUAPLUS #### [address] Protein (U) [Mass/Vol] 30 mg/dL High Negative [facility] Comment on above: Order Comment: Name Collection Type:: Voided Performed By: #### C UU, ADDONUAPLUS #### [address] RBC,Urine 1-2 Normal 0-4 [facility] Comment on above: Order Comment: Name Collection Type:: Voided Performed By: #### C UU, ADDONUAPLUS #### [address] Specificy [place],Urine 1.016 Normal 1.001-1.030 [facility] Comment on above: Order Comment: Name Collection Type:: Voided Performed By: #### C UU, ADDONUAPLUS #### [address] Squamous Epithelial Cell,Urine 3-4 High 0-2 [facility] Comment on above: Order Comment: Name Collection Type:: Voided Performed By: #### C UU, ADDONUAPLUS #### [address] Urobilinogen,Urine Normal Normal Normal [facility] Comment on above: Order Comment: Name Collection Type:: Voided Performed By: #### C UU, ADDONUAPLUS #### [address] WBC,Urine 50-100 High 0-4 [facility] Comment on above: Order Comment: Name Collection Type:: Voided Performed By: #### C UU, ADDONUAPLUS #### [facility] [address] [place] [address] Lactic Acidon 09-01-2023 Lactate [Moles/Vol] 0.8 mmol/L Normal 0.5-2.2 [facility] Comment on above: Order Comment: PT IS BEING MEDICATED Result Comment: PERF ORMED BY: [place] [address] PATHOLOGIST [employer] DEVELOPER BARBARA MUNOZ M.D. Performed By: #### L ACTIC, CUBLD #### [facility] [address] [place] [address] Magnesiumon 09-01-2023 Magnesium [Mass/Vol] 2.2 mg/dL Normal 1.9-2.7 [facility] Comment on above: Performed By: #### V [id number], MG, CBC, BMP, TSH3 ####[address] Thyroid Stimulating Hormoneo n 09-01-2023 TSH Qn 1.90 m[IU]/L Normal 0.45-5.33 [facility] Comment on above: Result Comment: PERF ORMED BY: [place] [address] PATHOLOGIST [employer] DEVELOPER BARBARA MUNOZ M.D. Performed By: #### V [id number], MG, CBC, BMP, TSH3 ####[address] Troponin I High Sensitivityo n 09-01-2023 Troponin I High Sensitivity 33.3 pg/mL High 0.0-15.0 [facility] Comment on above: Result Comment: PERF ORMED BY: [place] [address] PATHOLOGIST [employer]ELOPER BARBARA MUNOZ M.D. Performed By: #### H S TROP #### [facility] [address] [place] [address] Urine Cultureon 09-01-2023 Bacteria identified Cx Nom (U) 75,000 colonies/ml mixed bacterial skin contaminants 2 Days PERFORMED BY: [place] [address] PATHOLOGIST [employer]ELOPER BARBARA MUNOZ M.D. Normal [facility] Comment on above: Performed By: #### C UU, ADDONUAPLUS #### [facility] [address] [place] [address] Vit. B12/Folate Profileon Cobalamin (Vitamin B12) [Mass/Vol] 465 pg/mL Normal 180-914 [facility] Comment on above: Performed By: #### V [id number], MG, CBC, BMP, TSH3 ####[address] Folate 41.0 ng/mL Normal >5.9 [facility] Comment on above: Result Comment: Danielle te reference range: >5.9 ng/ml The WHO technical consultation on folate and vitamin b12 deficiencies has determined that folate concentrations less than 4 ng/ml are considered deficient. Performed By: #### V [id number], MG, CBC, BMP, TSH3 ####[address] XR chest 2V*on 09-01-2023 XR chest 2V* [facility] [place] [address] [place] [address] XRay Report Signed Patient: Jesús Nolan MR#: [id number] [birth year] : 1935 Acct:[id number] Age/Sex: 88 / F ADM Date: 08/31/23 Loc: Room: [address] [place] [address] Type: ADM IN Attending Dr: Riky Bundy [...] Isabel Vega M.D.09/01/2023 6:23 AM Dictation Location: [place] [address] Transcribed By: RYAN 09/01/23622 Dictated By: Isabel Vega MD 09/01/23621 Signed By: 09/01/23622 Normal [facility] Alanine aminotransferase [En zymatic activity/volume] in Serum or PlasmaOrdered By: Destiny Irwin on 08-31-2023 ALT [Catalytic activity/Vol] 29 U/L 7-52 [facility] Albumin [Mass/volume] in Ser um or Plasma by Bromocresol green (BCG) dye binding methoOrdered By: Destiny Irwin on 08-31-2023 Albumin BCG dye [Mass/Vol] 4.7 g/dL 3.5-5.7 [facility] Alkaline phosphatase [Enzyma tic activity/volume] in Serum or PlasmaOrdered By: Destiny Irwin on 08-31-2023 ALP [Catalytic activity/Vol] 101 U/L 34-104 [facility] Aspartate aminotransferase [ Enzymatic activity/volume] in Serum or PlasmaOrdered By: Destiny Irwin on 08-31-2023 AST [Catalytic activity/Vol] 29 U/L 13-39 [facility] Automated erythrocytes count in urine sediment (number/area)Ordered By: Destiny Irwin on 08-31-2023 RBC Auto (Urine sed) [#/Area] 1-2 [HPF] 0-4 [facility] Automated leukocytes count i n urine sediment (number/area)Ordered By: Destiny Irwin on 08-31-2023 WBC Auto (Urine sed) [#/Area] 50-100 [HPF] 0-4 [facility] Basic Metabolic Panelon Anion gap [Moles/Vol] 16.9 mmol/L High 6.0-15.0 [facility] Comment on above: Performed By: #### B MP, HEPATIC, CBC, LIPASE ####[facility] [place] [address] [facility] Calcium [Mass/Vol] 9.5 mg/dL Normal 8.6-10.3 [facility] Comment on above: Performed By: #### B MP, HEPATIC, CBC, LIPASE ####[place] [address] [place] [address] [facility] Chloride [Moles/Vol] 103 mmol/L Normal 98-107 [facility] Comment on above: Performed By: #### B MP, HEPATIC, CBC, LIPASE ####[place] [address] [place] [address] [facility] CO2 [Moles/Vol] 23.7 mmol/L Normal 21.0-31.0 [facility] Comment on above: Performed By: #### B MP, HEPATIC, CBC, LIPASE ####[place] [id number] [facility] Creatinine [Mass/Vol] 2.74 mg/dL High 0.60-1.20 [facility] Comment on above: Performed By: #### B MP, HEPATIC, CBC, LIPASE ####[place] [address] [place] [id number] [facility] Creatinine Clr Calc Pharmacy 12.25 [facility] Comment on above: Performed By: #### B MP, HEPATIC, CBC, LIPASE ####[place] [id number] [facility] GFR/1.73 sq M.predicted MDRD (S/P/Bld) [Vol rate/Area] 16.368 mL/min/{1.73_m2} [facility] Comment on above: Performed By: #### B MP, HEPATIC, CBC, LIPASE ####[place] [id number] [facility] Glucose [Mass/Vol] 132 mg/dL High 70-100 [facility] Comment on above: Result Comment: [place] Glucose Reference Range is dependent on time and content of last meal. Glucose of more than 200 mg/dL in a nonstressed, ambulatory subject supports the diagnosis of Diabetes Mellitus. ADA recommended reference range Performed By: #### B MP, HEPATIC, CBC, LIPASE ####[facility] [id number] Potassium [Moles/Vol] 4.6 mmol/L Normal 3.5-5.1 [facility] Comment on above: Performed By: #### B MP, HEPATIC, CBC, LIPASE ####[facility] [id number] Sodium [Moles/Vol] 139 mmol/L Normal 136-145 [facility] Comment on above: Performed By: #### B MP, HEPATIC, CBC, LIPASE ####[facility] [id number] Urea nitrogen [Mass/Vol] 30 mg/dL High 7-25 [facility] Comment on above: Performed By: #### B MP, HEPATIC, CBC, LIPASE ####[facility] [id number] Basophils Auto (Bld) [#/Vol] Ordered By: Destiny Irwin on 08-31-2023 Basophils (Bld) [#/Vol] 0.1 10*3/uL 0.0-0.2 [facility] Basophils/100 WBC Auto (Bld) Ordered By: Destiny Irwin on 08-31-2023 Basophils/100 WBC (Bld) 0.6 % . F [facility] Bilirubin Test strip Ql (U)O rdered By: Destiny Irwin on 08-31-2023 Bilirubin Ql (U) Negative Negative [facility] Bilirubin.direct [Mass/volum e] in Serum or PlasmaOrdered By: Destiny Irwin on 08-31-2023 Bilirubin.direct [Mass/Vol] 0.10 mg/dL 0.03-0.18 [facility] Bilirubin.total [Mass/volume ] in Serum or PlasmaOrdered By: Destiny Irwin on 08-31-2023 Bilirubin [Mass/Vol] 0.5 mg/dL 0.3-1.0 [facility] Calcium [Mass/volume] in Ser um or PlasmaOrdered By: Destiny Irwin on 08-31-2023 Calcium [Mass/Vol] 9.5 mg/dL 8.6-10.3 [facility] Carbon dioxide, total [Moles /volume] in Serum or PlasmaOrdered By: Destiny Irwin on 08-31-2023 CO2 [Moles/Vol] 23.7 mmol/L 21.0-31.0 [facility] Chloride [Moles/volume] in S shelley or PlasmaOrdered By: Destiny Irwin on 08-31-2023 Chloride [Moles/Vol] 103 mmol/L 98-107 [facility] Color Auto (U)Ordered By: As yamil Irwin on 08-31-2023 Color (U) Yellow Yellow [facility] Complete Blood Count Auto Di ffon 08-31-2023 Basophils (Bld) [#/Vol] 0.1 10*3/uL Normal 0.0-0.2 [facility] Comment on above: Result Comment: PERF ORMED BY: [facility] [address] [facility] [address] PATHOLOGIST [employer]ELOPER BARBARA MUNOZ M.D. Performed By: #### B MP, HEPATIC, CBC, LIPASE ####[place] [id number] [facility] Basophils/100 WBC (Bld) 0.6 % Normal . [facility] Comment on above: Performed By: #### B MP, HEPATIC, CBC, LIPASE ####[place] [id number] [facility] Eosinophils (Bld) [#/Vol] 0.0 10*3/uL Normal 0.0-0.45 [facility] Comment on above: Performed By: #### B MP, HEPATIC, CBC, LIPASE ####[place] [id number] [facility] Eosinophils/100 WBC (Bld) 0.5 % Normal . [facility] Comment on above: Performed By: #### B MP, HEPATIC, CBC, LIPASE ####[place] [id number] [facility] Erythrocyte distribution width (RBC) [Ratio] 13.7 % Normal 11.9-15.3 [facility] Comment on above: Performed By: #### B MP, HEPATIC, CBC, LIPASE ####[address] Hematocrit (Bld) [Volume fraction] 40.5 % Normal 34.0-46.4 [facility] Comment on above: Performed By: #### B MP, HEPATIC, CBC, LIPASE ####[address] Hemoglobin (Bld) [Mass/Vol] 13.3 g/dL Normal 11.8-15.4 [facility] Comment on above: Performed By: #### B MP, HEPATIC, CBC, LIPASE ####[address] Lymphocytes (Bld) [#/Vol] 1.9 10*3/uL Normal 1.00-4.8 [facility] Comment on above: Performed By: #### B MP, HEPATIC, CBC, LIPASE ####[address] Lymphocytes/100 WBC (Bld) 20.5 % Normal . [facility] Comment on above: Performed By: #### B MP, HEPATIC, CBC, LIPASE ####[address] MCH (RBC) [Entitic mass] 31.5 pg Normal 24.7-34.3 [facility] Comment on above: Performed By: #### B MP, HEPATIC, CBC, LIPASE ####[address] MCV (RBC) [Entitic vol] 95.4 fL Normal 80-100 [facility] Comment on above: Performed By: #### B MP, HEPATIC, CBC, LIPASE ####[address] Mean Corpuscular HGB Conc 33.0 g/dL Normal 32.0-35.0 [facility] Comment on above: Performed By: #### B MP, HEPATIC, CBC, LIPASE ####[address] Monocytes (Bld) [#/Vol] 1.0 10*3/uL High 0.0-0.8 [facility] Comment on above: Performed By: #### B MP, HEPATIC, CBC, LIPASE ####[address] [address] [facility] Monocytes/100 WBC (Bld) 18.57 % Normal 0.00-20.00 [facility] Comment on above: Performed By: #### B MP, HEPATIC, CBC, LIPASE ####[place] [id number] [facility] Monocytes/100 WBC (Bld) 10.6 % Normal . [facility] Comment on above: Performed By: #### B MP, HEPATIC, CBC, LIPASE ####[address] Neutrophils (Bld) [#/Vol] 6.4 10*3/uL Normal 1.8-7.7 [facility] Comment on above: Performed By: #### B MP, HEPATIC, CBC, LIPASE ####[place] [id number] [facility] Neutrophils/100 WBC (Bld) 67.8 % Normal . [facility] Comment on above: Performed By: #### B MP, HEPATIC, CBC, LIPASE ####[place] [id number] [facility] NRBC% 0.0 /100{WBC} Normal 0-0.5 [facility] Comment on above: Performed By: #### B MP, HEPATIC, CBC, LIPASE ####[place] [id number] [facility] Platelet mean volume (Bld) [Entitic vol] 8.4 fL Normal 6.3-10.7 [facility] Comment on above: Performed By: #### B MP, HEPATIC, CBC, LIPASE ####[address] [address] [facility] Platelets (Bld) [#/Vol] 249 10*3/uL Normal 150-450 [facility] Comment on above: Performed By: #### B MP, HEPATIC, CBC, LIPASE ####[facility] RBC (Bld) [#/Vol] 4.24 10*6/uL Normal 3.60-5.00 [facility] Comment on above: Performed By: #### B MP, HEPATIC, CBC, LIPASE ####[facility] [place] [id number] [facility] WBC (Bld) [#/Vol] 9.4 10*3/uL Normal 3.8-11.6 [facility] Comment on above: Performed By: #### B MP, HEPATIC, CBC, LIPASE ####[facility] Creatinine [Mass/volume] in Serum or PlasmaOrdered By: Destiny Irwin on 08-31-2023 Creatinine [Mass/Vol] 2.74 mg/dL 0.60-1.20 [facility] D-Dimer High Sensitivityon 1 11-01-2022 D-Dimer High Sensitivity < 200 Normal 0-243 [facility] Comment on above: Result Comment: The [...] coagulation studies. Please contact the laboratory at [phone] for redraw instructions. PERFORMED BY: [facility] [address] [place] [address] PATHOLOGIST [employer]ELOPER BARBARA MUNOZ M.D. Performed By: #### D DIMER #### [address] ECG 12 lead ECGon 08-31-2023 ECG 12 lead ECG [facility] [place] [address] [place] [address] Electrocardiograph Report Signed Patient: Jesús Nolan MR#: [id number] 36 : 1935 Acct:[id number] Age/Sex: 88 / F ADM Date: 08/31/23 Loc: Room: [address] [place] [address] Type: ADM IN Attending Dr: Riky Bundy [...] anterior infarct Confirmed by Yuly Marx DO ([id number]) on 09/01/2023 6:18:58 AM Referred By: Electronically Signed By:Yuly Marx DO Transcribed By: MUS Signed By Yuly Marx DO [id number] Normal [facility] Eosinophils Auto (Bld) [#/Vo l]Ordered By: Destiny Irwin on 08-31-2023 Eosinophils (Bld) [#/Vol] 0.0 10*3/uL 0.0-0.45 [facility] Eosinophils/100 WBC Auto (Bl d)Ordered By: Destiny Irwin on 08-31-2023 Eosinophils/100 WBC (Bld) 0.5 % . [facility] Erythrocyte distribution wid th Auto (RBC) [Ratio]Ordered By: Destiny Irwin on 08-31-2023 Erythrocyte distribution width (RBC) [Ratio] 13.7 % 11.9-15.3 [facility] Fibrin D-dimer [Presence] in Platelet poor plasma by Latex agglutinationOrdered By: Destiny Irwin on 08-31-2023 Fibrin D-dimer LA Ql (PPP) < 200 ng/mL 0-243 [facility] Comment on above: The reference range [...] coagulation studies. Please contact the laboratory at [phone] for redraw instructions. Globulin Calc (S) [Mass/Vol] Ordered By: Destiny Irwin on 08-31-2023 Globulin (S) [Mass/Vol] 3.3 g/dL F [facility] Glucose [Mass/volume] in Ser um or PlasmaOrdered By: Destiny Irwin on 08-31-2023 Glucose [Mass/Vol] 132 mg/dL 70-100 [facility] Comment on above: ADA recommended refe rence rangeRandom Glucose Reference Range is dependent on time and content of last meal. Glucose of more than 200 mg/dL in a nonstressed, ambulatory subject supports the diagnosis of Diabetes Mellitus. Hematocrit Auto (Bld) [Volum e fraction]Ordered By: Destiny Irwin on 08-31-2023 Hematocrit (Bld) [Volume fraction] 40.5 % 34.0-46.4 [facility] Hemoglobin [Mass/volume] in BloodOrdered By: Destiny Irwin on 08-31-2023 Hemoglobin (Bld) [Mass/Vol] 13.3 g/dL 11.8-15.4 [facility] Hepatic Panelon 08-31-2023 Albumin [Mass/Vol] 4.7 g/dL Normal 3.5-5.7 [facility] Comment on above: Performed By: #### B MP, HEPATIC, CBC, LIPASE ####[facility] [address] Albumin/Globulin [Mass ratio] 1.4 {ratio} Normal [facility] Comment on above: Performed By: #### B MP, HEPATIC, CBC, LIPASE ####[place] [address] [place] [id number] [facility] ALP [Catalytic activity/Vol] 101 U/L Normal 34-104 [facility] Comment on above: Performed By: #### B MP, HEPATIC, CBC, LIPASE ####[place] [address] ALT [Catalytic activity/Vol] 29 U/L Normal 7-52 [facility] Comment on above: Performed By: #### B MP, HEPATIC, CBC, LIPASE ####[address] AST [Catalytic activity/Vol] 29 U/L Normal 13-39 [facility] Comment on above: Performed By: #### B MP, HEPATIC, CBC, LIPASE ####[address] Bilirubin [Mass/Vol] 0.5 mg/dL Normal 0.3-1.0 [facility] Comment on above: Performed By: #### B MP, HEPATIC, CBC, LIPASE ####[address] Bilirubin,Indirect 0.4 mg/dL Normal [facility] Comment on above: Performed By: #### B MP, HEPATIC, CBC, LIPASE ####[address] Bilirubin.indirect [Mass/Vol] 0.10 mg/dL Normal 0.03-0.18 [facility] Comment on above: Performed By: #### B MP, HEPATIC, CBC, LIPASE ####[place] [id number] [facility] Globulin (S) [Mass/Vol] 3.3 g/dL Normal [facility] Comment on above: Performed By: #### B MP, HEPATIC, CBC, LIPASE ####[address] Protein [Mass/Vol] 8.0 g/dL Normal 6.4-8.9 [facility] Comment on above: Performed By: #### B MP, HEPATIC, CBC, LIPASE ####[facility] [id number] Ketones Auto test strip (U) [Mass/Vol]Ordered By: Destiny Irwin on 08-31-2023 Ketones (U) [Mass/Vol] Negative Negative [facility] Leukocytes [#/volume] correc tavia for nucleated erythrocytes in Blood by Automated counOrdered By: Destiny Irwin on 08-31-2023 WBC corrected for nucl RBC Auto (Bld) [#/Vol] 9.4 10*3/uL 3.8-11.6 [facility] Lipaseon 08-31-2023 Lipase [Catalytic activity/Vol] 33.0 U/L Normal 11.0-82.0 [facility] Comment on above: Result Comment: PERF ORMED BY: [facility] [address] [place] [address] PATHOLOGIST [employer]ELOPER BARBARA MUNOZ M.D. Performed By: #### B MP, HEPATIC, CBC, LIPASE ####[facility] [id number] [place] [id number] [facility] Lipase [Enzymatic activity/v olume] in Serum or PlasmaOrdered By: Destiny Irwin on 08-31-2023 Lipase [Catalytic activity/Vol] 33.0 U/L 11.0-82.0 [facility] Lymphocytes Auto (Bld) [#/Vo l]Ordered By: Destiny Irwin on 08-31-2023 Lymphocytes (Bld) [#/Vol] 1.9 10*3/uL 1.00-4.8 [facility] Lymphocytes/100 WBC Auto (Bl d)Ordered By: Destiny Irwin on 08-31-2023 Lymphocytes/100 WBC (Bld) 20.5 % . [facility] MCH Auto (RBC) [Entitic mass ]Ordered By: Destiny Irwin on 08-31-2023 MCH (RBC) [Entitic mass] 31.5 pg 24.7-34.3 [facility] MCHC Auto (RBC) [Mass/Vol]Or dered By: Destiny Irwin on 08-31-2023 MCHC (RBC) [Mass/Vol] 33.0 g/dL 32.0-35.0 [facility] MCV Auto (RBC) [Entitic vol] Ordered By: Destiny Irwin on 08-31-2023 MCV (RBC) [Entitic vol] 95.4 fL 80-100 F [facility] Monocyte distribution width [Entitic volume] in Blood by AutomatedOrdered By: Destiny Irwin on 08-31-2023 Monocyte distribution width Auto (Bld) [Entitic vol] 18.57 % 0.00-20.00 [facility] Monocytes Auto (Bld) [#/Vol] Ordered By: Destiny Irwin on 08-31-2023 Monocytes (Bld) [#/Vol] 1.0 10*3/uL 0.0-0.8 [facility] Monocytes/100 WBC Auto (Bld) Ordered By: Destiny Irwin on 08-31-2023 Monocytes/100 WBC (Bld) 10.6 % . F [facility] Neutrophils Auto (Bld) [#/Vo l]Ordered By: Destiny Irwin on 08-31-2023 Neutrophils (Bld) [#/Vol] 6.4 10*3/uL 1.8-7.7 [facility] Neutrophils/100 WBC Auto (Bl d)Ordered By: Destiny Irwin on 08-31-2023 Neutrophils/100 WBC (Bld) 67.8 % . [facility] Nitrite Test strip Ql (U)Ord ered By: Destiny Irwin on 08-31-2023 Nitrite Ql (U) Negative Negative [facility] No Panel InformationOrdered By: Destiny Irwin on 08-31-2023 Estimated GFR (CKD-EPI) 16.368 mL/Min [facility] Creatinine Clearance (Chem 12.25 [facility] Nucleated erythrocytes [Pres ence] in Blood by Automated countOrdered By: Destiny Irwin on 08-31-2023 Nucleated RBC Auto Ql (Bld) 0.0 /100{WBC} 0-0.5 [facility] Platelet mean volume Auto (B ld) [Entitic vol]Ordered By: Destiny Irwin on 08-31-2023 Platelet mean volume (Bld) [Entitic vol] 8.4 fL 6.3-10.7 [facility] Platelets Auto (Bld) [#/Vol] Ordered By: Destiny Irwin on 08-31-2023 Platelets (Bld) [#/Vol] 249 10*3/uL 150-450 [facility] Potassium [Moles/volume] in Serum or PlasmaOrdered By: Destiny Irwin on 08-31-2023 Potassium [Moles/Vol] 4.6 mmol/L 3.5-5.1 [facility] Protein Auto test strip (U) [Mass/Vol]Ordered By: Destiny Irwin on 08-31-2023 Protein (U) [Mass/Vol] 30 mg/dL Negative [facility] Protein [Mass/volume] in Ser um or PlasmaOrdered By: Destiny Irwin on 08-31-2023 Protein [Mass/Vol] 8.0 g/dL 6.4-8.9 [facility] RBC Auto (Bld) [#/Vol]Ordere d By: Destiny Irwin on 08-31-2023 RBC (Bld) [#/Vol] 4.24 10*6/uL 3.60-5.00 [facility] Serum or plasma albumin/glob ulin mass ratioOrdered By: Destiny Irwin on 08-31-2023 Albumin/Globulin [Mass ratio] 1.4 {ratio} [facility] Serum or plasma anion gap de terminationOrdered By: Destiny Irwin on 08-31-2023 Anion gap [Moles/Vol] 16.9 mmol/L 6.0-15.0 [facility] Serum or plasma non-glucuron idated bilirubin measurement (mass/volume)Ordered By: Destiny Irwin on 08-31-2023 Bilirubin.indirect [Mass/Vol] 0.4 mg/dL [facility] Sodium [Moles/volume] in Ser um or PlasmaOrdered By: Destiny Irwin on 08-31-2023 Sodium [Moles/Vol] 139 mmol/L 136-145 [facility] Specific gravity Auto test s trip (U) [Rel density]Ordered By: Destiny Irwin on 08-31-2023 Specific gravity (U) [Rel density] 1.016 1.001-1.030 [facility] Squamous epithelial cells de tection in urine sediment by light microscopyOrdered By: Destiny Irwin on 08-31-2023 Epithelial cells.squamous LM Ql (Urine sed) 3-4 [HPF] 0-2 [facility] Troponin I High Sensitivityo n 08-31-2023 Troponin I High Sensitivity 18.1 pg/mL High 0.0-15.0 [facility] Comment on above: Result Comment: PERF ORMED BY: [facility] [address] [place] [address] PATHOLOGIST [employer]EL[employer] BARBARA MUNOZ M.D. Performed By: #### H S TROP ####[facility] [id number] [facility] Troponin I.cardiac [Mass/vol ume] in Serum or Plasma by Detection limit <= 0.01 ng/Ordered By: Destiny Irwin on 08-31-2023 Troponin I.cardiac DL <= 0.01 ng/mL [Mass/Vol] 18.1 pg/mL 0.0-15.0 [facility] Urea nitrogen [Mass/volume] in Serum or PlasmaOrdered By: Destiny Irwin on 08-31-2023 Urea nitrogen [Mass/Vol] 30 mg/dL 7-25 [facility] Urine bacteria detection by automated methodOrdered By: Destiny Irwin on 08-31-2023 Bacteria Auto Ql (U) None seen None Seen [facility] Urine clarity by refractomet ry automatedOrdered By: Destiny Irwin on 08-31-2023 Clarity Refractometry automated (U) Cloudy Clear [facility] Urine glucose measurement by automated test strip (mass/volume)Ordered By: Destiny Irwin on 08-31-2023 Glucose Auto test strip (U) [Mass/Vol] Normal mg/dL Normal [facility] Urine hemoglobin detection b y automated test stripOrdered By: Destiny Irwin on 08-31-2023 Hemoglobin Auto test strip Ql (U) Trace Negative [facility] Urine leukocyte esterase det ection by automated test stripOrdered By: Destiny Irwin on 08-31-2023 Leukocyte esterase Auto test strip Ql (U) 4+ Negative [facility] Urobilinogen Auto test strip (U) [Mass/Vol]Ordered By: Destiny Irwin on 08-31-2023 Urobilinogen (U) [Mass/Vol] Normal mg/dL Normal [facility] WBC Auto (Bld) [#/Vol]Ordere d By: Destiny Irwin on 08-31-2023 WBC (Bld) [#/Vol] 9.4 10*3/uL 3.8-11.6 [facility] pH Auto test strip (U)Ordere d By: Destiny Irwin on 08-31-2023 pH (U) 6.0 [pH] 5.0-9.0 [facility] Insurance Correspondence Off iceon 08-27-2023 Insurance Correspondence Office [id number] 0TIFF Normal [facility] CBC AUTO DIFFon 04-12-2021 BASO # 0.0 103/ul Normal 0.0-0.1 [facility] Comment on above: Performed By: #### C BC #### [facility] [address] [place] [address] Chelsey Isabel Basophils/100 WBC (Bld) 0.3 % Normal 0.2-2.0 [facility] Comment on above: Performed By: #### C BC #### [facility] [address] [place] [address] Chelsey Isabel EO # 0.1 103/ul Normal 0.0-0.7 [facility] Comment on above: Performed By: #### C BC #### [facility] [address] [place], [place] [address] Chelsey Isabel Eosinophils/100 WBC (Bld) 2.1 % Normal 0.9-7.0 [facility] Comment on above: Performed By: #### C BC #### [facility] [address] [place], [place] [address] Chelsey Isabel Erythrocyte distribution width (RBC) [Ratio] 13.7 % Normal 11.0-15.0 [facility] Comment on above: Performed By: #### C BC #### [facility] [address] [place] [address] Chelsey Hall Hematocrit (Bld) [Volume fraction] 39.6 % Normal 36.0-48.0 [facility] Comment on above: Performed By: #### C BC #### [facility] [address] [place] [address] Chel[place] Hall Hemoglobin (Bld) [Mass/Vol] 12.9 g/dL Normal 12.0-16.0 [facility] Comment on above: Performed By: #### C BC #### [facility] [address] [place] [address] Chelseyfeliberto Hall IG # 0.01 10e3/ul Normal 0.00-0.03 [facility] Comment on above: Performed By: #### C BC #### [facility] [address] [place] [address] Chelseyfeliberto Hall IG % 0.2 % Normal 0.0-0.5 [facility] Comment on above: Performed By: #### C BC #### [facility] [address] [place] [address] Chelsey Hall LYMPH # 2.2 103/ul Normal 1.2-3.8 [facility] Comment on above: Performed By: #### C BC #### [facility] [address] [place] [address] Chelsey Hall Lymphocytes/100 WBC (Bld) 35.3 % Normal 20.5-60.0 [facility] Comment on above: Performed By: #### C BC #### [facility] [address] [place] [address] Chelsey Hall MANUAL DIFF REQ NO Normal [facility] Comment on above: Performed By: #### C BC #### [facility] [address] [place], [place] [id number] Chelsey Hall MCH (RBC) [Entitic mass] 31.1 pg Normal 26.7-34.0 [facility] Comment on above: Performed By: #### C BC #### [facility] [address] [place] [address] Chelsey Hall MCHC (RBC) [Mass/Vol] 32.6 g/dL Normal 29.9-35.2 [facility] Comment on above: Performed By: #### C BC #### [facility] [address] [place], [place] [id number] Chelsey Hall MCV (RBC) [Entitic vol] 95.4 fL Normal 81.0-99.0 [facility] Comment on above: Performed By: #### C BC #### [facility] [address] [place], [place] [address] Chelsey Hall MONO # 0.7 103/ul Normal 0.3-0.8 [facility] Comment on above: Performed By: #### C BC #### [facility] [address] [place], [place] [address] Chelsey Hall Monocytes/100 WBC (Bld) 12.1 % Critically high 1.7-12. 0 [facility] Comment on above: Performed By: #### C BC #### [facility] [address] [place] [address] Chelsey Hall NEUT # 3.1 103/ul Normal 1.4-6.5 [facility] Comment on above: Performed By: #### C BC #### [facility] [address] [place], [place] [id number] Chelsey Hall Neutrophils/100 WBC (Bld) 50.0 % Normal 43.0-75.0 [facility] Comment on above: Performed By: #### C BC #### [facility] [address] [place], [place] [id number] Chelsey Hall Platelet mean volume (Bld) [Entitic vol] 10.2 fL Normal 9.5-13.5 [facility] Comment on above: Performed By: #### C BC #### [facility] [address] [place], [place] [address] Chelsey Isabel PLT 212 103/ul Normal 150-450 [facility] Comment on above: Performed By: #### C BC #### [facility] [address] [place], [place] [address] Chelsey Isabel RBC 4.15 106/ul Critically low 4.20-5.40 [facility] Comment on above: Performed By: #### C BC #### [facility] [address] [place], [place] [address] Chelsey Isabel WBC 6.1 103/ul Normal 4.0-11.0 [facility] Comment on above: Performed By: #### C BC #### [facility] [address] [place], [place] [address] Chelsey Isabel RENAL FUNCTION PANELon 04-12 Albumin [Mass/Vol] 3.4 g/dL Critically low 3.5-5.0 [facility] Comment on above: Performed By: #### R ENAL #### [facility] [address] [place] [id number] Chelsey Isabel Calcium [Mass/Vol] 8.9 mg/dL Normal 8.4-10.2 [facility] Comment on above: Performed By: #### R ENAL #### [facility] [address] [place] [address] Chelsey Isabel Chloride [Moles/Vol] 106 mmol/L Normal 98-107 [facility] Comment on above: Performed By: #### R ENAL #### [facility] [address] [place], [place] [address] Chelsey Isabel CO2 [Moles/Vol] 29.4 mmol/L Normal 22.0-30.0 [facility] Comment on above: Performed By: #### R ENAL #### [facility] [address] [id number] Chelsey Isabel Creatinine [Mass/Vol] 1.49 mg/dL Critically high 0.52-1.04 [facility] Comment on above: Performed By: #### R ENAL #### [facility] [address] [place], [place] [address] Chelsey Isabel EGFR-AF SWEDISH 41 mL/min/1.73m2 Critically low >=60 [facility] Comment on above: Performed By: #### R ENAL #### [facility] [address] [id number] Chelsey Isabel EGFR-NON AF SWEDISH 33 mL/min/1.73m2 Critically low >=60 [facility] Comment on above: Performed By: #### R ENAL #### [facility] [address] [id number] Chelsey Isabel Glucose [Mass/Vol] 138 mg/dL Critically high 74-106 [facility] Comment on above: Performed By: #### R ENAL #### [facility] [address] [address] Chelsey Isabel Phosphate [Mass/Vol] 4.3 mg/dL Normal 2.5-4.5 [facility] Comment on above: Performed By: #### R ENAL #### [facility] [address] [place] [address] Chelsey Isabel Potassium [Moles/Vol] 3.2 mmol/L Critically low 3.4-5.0 [facility] Comment on above: Performed By: #### R ENAL #### [facility] [address] [place] [address] Chelsey Isabel Sodium [Moles/Vol] 144 mmol/L Normal 137-145 [facility] Comment on above: Performed By: #### R ENAL #### [facility] [address] [place] [address] Chelsey Isabel Urea nitrogen [Mass/Vol] 28.0 mg/dL Critically high 7.0-17 .0 [facility] Comment on above: Performed By: #### R ENAL #### [facility] [address] [place], [place] [address] Chelsey Isabel UA RANDOMon 04-12-2021 Bilirubin Ql (U) Negative Normal NEGATIVE [facility] Comment on above: Performed By: #### U A #### [facility] [address] [place] [address] Chelsey Isabel Clarity (U) CLOUDY Abnormal CLEAR [facility] Comment on above: Performed By: #### U A #### [facility] [address] [place], [place] [address] Chelsey Isabel Color (U) LT. YELLOW Normal YELLOW [facility] Comment on above: Performed By: #### U A #### [facility] [address] [place], [place] [address] Chelsey Isabel Glucose Ql (U) Negative Normal NEGATIVE [facility] Comment on above: Performed By: #### U A #### [facility] [address] [place] [address] Chelsey Isabel Hemoglobin Ql (U) LARGE Abnormal NEGATIVE [facility] Comment on above: Performed By: #### U A #### [facility] [address] [place] [address] Chelsey Isabel Ketones Ql (U) Negative Normal NEGATIVE [facility] Comment on above: Performed By: #### U A #### [facility] [address] [place] [address] Chelsey Isabel LEUKOCYTES LARGE Abnormal NEGATIVE [facility] Comment on above: Performed By: #### U A #### [facility] [address] [place] [address] Chelsey Isabel Nitrite Ql (U) Negative Normal NEGATIVE [facility] Comment on above: Performed By: #### U A #### [facility] [address] [place] [address] Chelsey Isabel pH (U) 6.5 [pH] Normal 5-9 [facility] Comment on above: Performed By: #### U A #### [facility] [address] [place] [address] Chelsey Hall SPEC GRAVITY 1.015 Normal 1.005-<=1.0 25 [facility] Comment on above: Performed By: #### U A #### [facility] [address] [place] [address] Chelseyfeliberto Hall UA PROTEIN 30 mg/dl Abnormal NEGATIVE/ TRACE [facility] Comment on above: Performed By: #### U A #### [facility] [address] [place] [address] Chelseyfeliberto Hall Urobilinogen Qn (U) 0.2 {Gerard'U}/dL Normal 0.2 - 1. 0 [facility] Comment on above: Performed By: #### U A #### [facility] [address] [place] [address] Chelsey Hall C-Reactive Proteinon 03-12-2 021 CRP [Mass/Vol] 7.9 mg/L High 0.0-5.0 [facility] Comment on above: Performed By: #### C DP #### [facility] [address] [place] [address] [employer] Machinist: Loi Irene MD #### CRP #### [address] [address] [place], [place] [id number] [employer] L[employer] Machinist: Dg Aparicio MD CRP [Mass/Vol] 7.9 mg/L High 0.0 - 5.0 mg/L [facility] [employer] Phone: Interpretation and review of laboratory results Abnormal [facility] Phone: PTH, Intacton 12-06-2020 PTH, Intact 39.87 pg/mL Normal 15.0-65.0 [facility] Comment on above: Result Comment: SAMP LES FROM PATIENTS ROUTINELY RECEIVING HIGH DOSE BIOTIN THERAPY MAY SHOW FALSELY DEPRESSED RESULTS. ADDITIONAL INFORMATION MAY BE REQUIRED FOR DIAGNOSIS. Performed By: #### M ARMANDO Padgett URI #### [facility] [address] [place] [address] [place] [address] [employer] Lathe Machinist: Loi Irene MD #### PTHNCA #### [address] [place], [place] [id number] [employer] Lathe Machinist: Dg Aparicio MD Pth Intact 39.87 pg/mL 15.0 - 65.0 pg/mL [facility] Phone: Comment on above: SAMPLES FROM PATIENT S ROUTINELY RECEIVING HIGH DOSE BIOTIN THERAPY MAY SHOW FALSELY DEPRESSED RESULTS. ADDITIONAL INFORMATION MAY BE REQUIRED FOR DIAGNOSIS. CBC Auto Differentialon 11-25 Basophils (Bld) [#/Vol] 10*3/uL [facility] Phone: Basophils/100 WBC (Bld) 0 % 0 - 2 % [facility] Phone: Differential Type NOT REPORTED [facility] Phone: Eosinophils (Bld) [#/Vol] 0.16 10*3/uL [facility] Phone: Eosinophils/100 WBC (Bld) 3 % 1 - 4 % [facility] Phone: Erythrocyte distribution width (RBC) [Ratio] 15.3 % High 11.8 - 14.4 % [facility] Phone: Hematocrit (Bld) [Volume fraction] 38.3 % 36.3 - 47.1 % [facility] Phone: Hemoglobin (Bld) [Mass/Vol] 11.9 g/dL 11.9 - 15.1 g/dL [facility] Phone: Immature granulocytes (Bld) [#/Vol] 10*3/uL [facility] Phone: Immature granulocytes (Bld) [#/Vol] 0 % 0 [facility] Phone: Interpretation and review of laboratory results Abnormal [facility] Phone: Lymphocytes (Bld) [#/Vol] 1.68 10*3/uL [facility] Phone: Lymphocytes/100 WBC (Bld) 32 % 24 - 43 % [facility] Phone: MCH (RBC) [Entitic mass] 31.2 pg 25. 2 - 33.5 pg [facility] Phone: MCHC (RBC) [Mass/Vol] 31.1 g/dL 28.4 - 34.8 g/dL [facility] Phone: MCV (RBC) [Entitic vol] 100.3 fL 82.6 - 102.9 fL [facility] Phone: Monocytes (Bld) [#/Vol] 0.67 10*3/uL [facility] Phone: Monocytes/100 WBC (Bld) 13 % High 3 - 12 % M [facility] Phone: Platelet mean volume (Bld) [Entitic vol] 10.2 fL 8.1 - 13.5 fL [facility] Phone: Platelets (Bld) [#/Vol] 238 10*3/uL [facility] Phone: Platelets (Bld) [#/Vol] NOT REPORTED [facility] Phone: RBC (Bld) [#/Vol] 3.82 10*6/uL Low 3.95 - 5.1 1 m/uL [facility] Phone: RBC morphology finding Nom (Bld) NOT REPORTED [facility] Phone: Segmented neutrophils/100 WBC (Bld) 52 % 36 - 65 % [facility] Phone: Segs Absolute 2.75 [facility] Phone: WBC (Bld) [#/Vol] 5.3 10*3/uL [facility] Phone: WBC (Bld) [#/Vol] 0.0 10*3/uL 0.0 per 10 0 WBC [facility] Phone: WBC Morphology NOT REPORTED [facility] Phone: CBC with Diffon 12-05-2020 Abs. Basophil <0.03 Normal 0.00-0.20 [facility] Comment on above: Performed By: #### C DP #### [facility] [address] [place] [address] [employer] L[employer] Machinist: Loi Irene MD #### CRP #### [address] [place] [address] C[employer] Lathe Machinist: Dg Aparicio MD Abs.Imm.Granulocyte <0.03 Normal 0.00-0.30 [facility] Comment on above: Performed By: #### C DP #### [facility] [address] [place] [address] [place] [address] [employer] L[employer] Machinist: Loi Irene MD #### CRP #### [address] [id number] [employer] Machinist: Dg Aparicio MD Abs.Neutrophil (Seg) 2.75 k/uL Normal 1.50-8.10 [facility] Comment on above: Performed By: #### C DP #### [address] [place] [id number] [employer] Machinist: Loi Irene MD #### CRP #### [address] [id number] C[employer] L[employer] Machinist: Dg Aparicio MD Basophils/100 WBC (Bld) 0 % Normal 0-2 [facility] Comment on above: Performed By: #### C DP #### [address] [place] [id number] [employer] Machinist: Loi Irene MD #### CRP #### [address] [address] [employer] L[employer] Machinist: Dg Aparicio MD Eosinophils (Bld) [#/Vol] 0.16 10*3/uL Normal 0.00-0.44 [facility] Comment on above: Performed By: #### C DP #### [facility] [address] [place] [address] Dr. [place] [id number] [employer] Machinist: Loi Irene MD #### CRP #### [address] [address] C[employer] Lathe Machinist: Dg Aparicio MD Eosinophils/100 WBC (Bld) 3 % Normal 1-4 [facility] Comment on above: Performed By: #### C DP #### [facility] [place] [address] [employer] Machinist: Loi Irene MD #### CRP #### [address] [id number] [employer] Machinist: Dg Aparicio MD Erythrocyte distribution width (RBC) [Ratio] 15.3 % High 11.8-14.4 [facility] Comment on above: Performed By: #### C DP #### [address] [place] [id number] [employer] Machinist: Loi Irene MD #### CRP #### [place] [address] C[employer] Lathe Machinist: Dg Aparicio MD Hematocrit (Bld) [Volume fraction] 38.3 % Normal 36.3-47.1 [facility] Comment on above: Performed By: #### C DP #### [address] [place] [id number] [employer] Machinist: Loi Irene MD #### CRP #### [place] [address] C[employer] Lathe Machinist: Dg Aparicio MD Hemoglobin (Bld) [Mass/Vol] 11.9 g/dL Normal 11.9-15.1 [facility] Comment on above: Performed By: #### C DP #### [address] [place] [id number] [employer] Lathe Machinist: Loi Irene MD #### CRP #### [place] [id number] C[employer] Lathe Machinist: Dg Aparicio MD Immature granulocytes/100 WBC (Bld) 0 % Normal 0 [facility] Comment on above: Performed By: #### C DP #### [address] [place] [place] [address] Cnc Lathe Machinist: Loi Irene MD #### CRP #### [address] [address] C[employer] Lathe Machinist: Dg Aparicio MD Lymphocytes (Bld) [#/Vol] 1.68 10*3/uL Normal 1.10-3.70 [facility] Comment on above: Performed By: #### C DP #### [facility] [address] [place] [address] Dr[address] [place] [id number] [employer] Machinist: Loi Irene MD #### CRP #### [address] [address] C[employer] Lathe Machinist: Dg Aparicio MD Lymphocytes/100 WBC (Bld) 32 % Normal 24-43 [facility] Comment on above: Performed By: #### C DP #### [address] [place] [address] [employer] Machinist: Loi Irene MD #### CRP #### [address] [address] C[employer] Lathe Machinist: Dg Aparicio MD MCH (RBC) [Entitic mass] 31.2 pg Normal 25.2-33.5 [facility] Comment on above: Performed By: #### C DP #### [address] [place] [address] [employer] Machinist: Loi Irene MD #### CRP #### [address] [address] C[employer] Lathe Machinist: Dg Aparicio MD MCHC (RBC) [Mass/Vol] 31.1 g/dL Normal 28.4-34.8 [facility] Comment on above: Performed By: #### C DP #### [address] [place], [place] [id number] C[employer] Lathe Machinist: Loi Irene MD #### CRP #### [address] [address] C[employer] Lathe Machinist: Dg Aparicio MD MCV (RBC) [Entitic vol] 100.3 fL Normal 82.6-102.9 [facility] Comment on above: Performed By: #### C DP #### [facility] [address] [place] [address] Dr[address] [place], [place] [id number] [employer] Lathe Machinist: Loi Irene MD #### CRP #### [address] [address] C[employer] Lathe Machinist: Dg Aparicio MD Monocytes (Bld) [#/Vol] 0.67 10*3/uL Normal 0.10-1.20 [facility] Comment on above: Performed By: #### C DP #### [address] [place] [address] [employer] Machinist: Loi Irene MD #### CRP #### [address] [address] C[employer] Lathe Machinist: Dg Aparicio MD Monocytes/100 WBC (Bld) 13 % High 3-12 [facility] Comment on above: Performed By: #### C DP #### [address] [place] [address] ( C[employer] Lathe Machinist: oLi Irene MD #### CRP #### [address] [address] C[employer] Lathe Machinist: Dg Aparicio MD Neutrophil (Seg) 52 % Normal 36-65 [facility] Comment on above: Performed By: #### C DP #### [facility] [address] [place] [address] Dr[address] [place] [id number] C[employer] Lathe Machinist: Loi Irene MD #### CRP #### [address] [address] C[employer] Lathe Machinist: Dg Aparicio MD NRBC Automated 0.0 per 100 WBC Normal 0.0 [facility] Comment on above: Performed By: #### C DP #### [facility] [address] [place], [place] [id number] C[employer] Lathe Machinist: Loi Irene MD #### CRP #### [address] [place] [address] Cnc Lathe Machinist: Dg Aparicio MD Platelet mean volume (Bld) [Entitic vol] 10.2 fL Normal 8.1-13.5 [facility] Comment on above: Performed By: #### C DP #### [facility] [address] [place], [place] [address] C[employer] Lathe Machinist: Loi Irene MD #### CRP #### [address] [address] C[employer] Lathe Machinist: Dg Aparicio MD Platelets (Bld) [#/Vol] 238 10*3/uL Normal 138-453 [facility] Comment on above: Performed By: #### C DP #### [facility] [address] [place], [place] [address] C[employer] Lathe Machinist: Loi Irene MD #### CRP #### [address] [address] C[employer] Lathe Machinist: Dg Aparicio MD RBC (Bld) [#/Vol] 3.82 10*6/uL Low 3.95-5.11 [facility] Comment on above: Performed By: #### C DP #### [facility] [address] [place] [address] Cnc Lathe Machinist: Loi Irnee MD #### CRP #### [address] [address] C[employer] Lathe Machinist: Dg Aparicio MD WBC (Bld) [#/Vol] 5.3 10*3/uL Normal 3.5-11.3 [facility] Comment on above: Performed By: #### C DP #### [facility] [address] [place] [address] [place] [address] Cnc Lathe Machinist: Loi Irene MD #### CRP #### [address] [address] C[employer] Lathe Machinist: Dg Aparicio MD Auto Diff Performed NOT REPORTED Normal [facility] Comment on above: Performed By: #### C DP #### [facility] [address] [place] [address] [place] [address] Cnc Lathe Machinist: Loi Irene MD #### CRP #### [address] [address] Cnc Lathe Machinist: Dg Aparicio MD Platelet Estimate NOT REPORTED Normal [facility] Comment on above: Performed By: #### C DP #### [address] [place] [place] [address] C[employer] Lathe Machinist: Loi Irene MD #### CRP #### [address] [address] Cnc Lathe Machinist: Dg Aparicio MD RBC morphology finding Nom (Bld) NOT REPORTED Normal [facility] Comment on above: Performed By: #### C DP #### [address] [place] [place] [address] [employer] Lathe Machinist: Loi Irene MD #### CRP #### [address] [address] Cnc Lathe Machinist: Dg Aparicio MD WBC Morphology NOT REPORTED Normal [facility] Comment on above: Performed By: #### C DP #### [address] [place] [address] [employer] Lathe Machinist: Loi Irene MD #### CRP #### [address] [address] Cnc Lathe Machinist: Dg Aparicio MD Magnesiumon 12-05-2020 Magnesium [Mass/Vol] 2.2 mg/dL Normal 1.6-2.6 [facility] Comment on above: Performed By: #### M ARMANDO Padgett URI #### [facility] [address] [place] [address] Cnc Lathe Machinist: Loi Irene MD #### PTHNCA #### [facility] [address] [place] [address] Cnc Lathe Machinist: Dg Aparicio MD Magnesium [Mass/Vol] 2.2 mg/dL 1.6 - 2 .6 mg/dL [facility] Phone: Metabolic Panelon 12-05-2020 GFR/1.73 sq M predicted among non-blacks MDRD (S/P/Bld) [Vol rate/Area] [facility] Phone: Comment on above: Average GFR for 70 o r more years old: 75 mL/min/1.73sq m Chronic Kidney Disease: <60 mL/min/1.73sq m Kidney failure: <15 mL/min/1.73sq m eGFR calculated using average adult body mass. Additional eGFR calculator available at: http://www.[employer]OR[employer]/multiple_crcl_2012.htm Stage 1: Some kidney damage normal GFR Stage 2: Mild kidney damage GFR 60-89 Stage 3: Moderate kidney damage GFR 30-59 Stage 4: Severe kidney damage GFR 15-29 Stage 5: Severe kidney damage GFR <15 ESRD - chronic treatment by dialysis or transplant Otheron 12-05-2020 Interpretation and review of laboratory results Abnormal [facility] Phone: Renal Function Panelon 12-05 (cont.) Normal [facility] Comment on above: Result Comment: Aver age GFR for 70 or more years old: 75 mL/min/1.73sq m Chronic Kidney Disease: <60 mL/min/1.73sq m Kidney failure: <15 mL/min/1.73sq m eGFR calculated using average adult body mass. Additional eGFR calculator available at: http://www.[employer]/multiple_crcl_2012.htm Performed By: #### ARMANDO Warren URI #### [facility] [address] [place], [place] [id number] Cnc Lathe Machinist: Loi Irene MD #### PTHNCA #### [address] [id number] C[employer] Lathe Machinist: Dg Aparicio MD Albumin [Mass/Vol] 3.5 g/dL Normal 3.5-5.2 [facility] Comment on above: Performed By: #### ARMANDO Warren URI #### [address] [place], [place] 1562383 C[employer] Lathe Machinist: Loi Irene MD #### PTHNCA #### [address] [place], [place] [id number] Cnc Lathe Machinist: Dg Aparicio MD Anion gap [Moles/Vol] 11 mmol/L Normal -17 [facility] Comment on above: Performed By: #### ARMANDO Warren URI #### [address] [place], [place] [address]783 C[employer] Lathe Machinist: Loi Irene MD #### PTHNCA #### [address] [place] [address] Cnc Lathe Machinist: Dg Aparicio MD BUN/CRE Ratio 20 Normal -20 [facility] Comment on above: Performed By: #### ARMANDO Warren, URI #### [facility] [address] [place], [place] 5173283 Cnc Lathe Machinist: Loi Irene MD #### PTHNCA #### [address] [place] [address] Cnc Lathe Machinist: Dg Aparicio MD Calcium [Mass/Vol] 9.3 mg/dL Normal 8.6-10.4 [facility] Comment on above: Performed By: #### M G RENP, URI #### [facility] [address] [place], [place] [id number] C[employer] Lathe Machinist: Loi Irene MD #### PTHNCA #### [address] [id number] C[employer] Lathe Machinist: Dg Aparicio MD Chloride [Moles/Vol] 103 mmol/L Normal 98-107 [facility] Comment on above: Performed By: #### M G RENP, URI #### [facility] [address] [place], [place] 1069283 Cnc Lathe Machinist: Loi Irene MD #### PTHNCA #### [address] [id number] C[employer] Lathe Machinist: Dg Aparicio MD CO2 [Moles/Vol] 29 mmol/L Normal 20-31 [facility] Comment on above: Performed By: #### FROY WarrenP, URI #### [facility] [address] [place], [place] [id number] C[employer] Lathe Machinist: Loi Irene MD #### PTHNCA #### [address] [address] Cnc Lathe Machinist: Dg Aparicio MD Creatinine [Mass/Vol] 1.43 mg/dL High 0.50-0.90 [facility] Comment on above: Performed By: #### FROY WarrenP, URI #### [facility] [address] [place], [place] [id number] Cnc Lathe Machinist: Loi Irene MD #### PTHNCA #### [address] [address] Cnc Lathe Machinist: Dg Aparicio MD GFR, Amer 42 mL/min Low >60 [facility] Comment on above: Performed By: #### ARMANDO Warren, URI #### [facility] [address] [place], [place] 7164383 Cnc Lathe Machinist: Loi Irene MD #### PTHNCA #### [address] [place], [place] 6371108 Cnc Lathe Machinist: Dg Aparicio MD GFR,non Amer 35 mL/min Low >60 [facility] Comment on above: Performed By: #### ARMANDO Warren, URI #### [facility] [address] [place], [place] 1445183 Cnc Lathe Machinist: Loi Irene MD #### PTHNCA #### [address] [id number] C[employer] Lathe Machinist: Dg Aparicio MD Glucose [Mass/Vol] 131 mg/dL High 70-99 [facility] Comment on above: Performed By: #### ARMANDO Warren URI #### [facility] [address] [place], [place] 2890583 Cnc Lathe Machinist: Loi Irene MD #### PTHNCA #### [address] [address] Cnc Lathe Machinist: Dg Aparicio MD Phosphorus, Inorg. 3.6 mg/dL Normal 2.6-4.5 [facility] Comment on above: Performed By: #### ARMANDO Warren, URI #### [facility] [address] [place], [place] 0390383 Cnc Lathe Machinist: Loi Irene MD #### PTHNCA #### [address] [address] Cnc Lathe Machinist: Dg Aparicio MD Potassium [Moles/Vol] 3.4 mmol/L Low 3.7-5.3 [facility] Comment on above: Performed By: #### ARMANDO Warren URI #### [address] [place], [place] 7954483 Cnc Lathe Machinist: Loi Irene MD #### PTHNCA #### [address] [address] Cnc Lathe Machinist: Dg Aparicio MD Sodium [Moles/Vol] 143 mmol/L Normal 135-144 [facility] Comment on above: Performed By: #### ARMANDO Warren URI #### [address] [place], [place] [address]3 Cnc Lathe Machinist: Loi Irene MD #### PTHNCA #### [address] [address] Cnc Lathe Machinist: Dg Aparicio MD Staging: Normal [facility] Comment on above: Result Comment: Stag e 1: Some kidney damage normal GFR Stage 2: Mild kidney damage GFR 60-89 Stage 3: Moderate kidney damage GFR 30-59 Stage 4: Severe kidney damage GFR 15-29 Stage 5: Severe kidney damage GFR <15 ESRD - chronic treatment by dialysis or transplant Performed By: #### ARMANDO Warren URI #### [address] [place], [place] [id number] Cnc Lathe Machinist: Loi Irene MD #### PTHNCA #### [address] [address] Cnc Lathe Machinist: Dg Aparicio MD Urea nitrogen [Mass/Vol] 29 mg/dL High 8-23 [facility] Comment on above: Performed By: #### ARMANDO Warren URI #### [address] [place], [place] 9327983 Cnc Lathe Machinist: Loi Irene MD #### PTHNCA #### [address] [address] Cnc Lathe Machinist: Dg Aparicio MD Albumin [Mass/Vol] 3.5 g/dL 3.5 - 5.2 g/dL [facility] Phone: Anion gap [Moles/Vol] 11 mmol/L 9 - 17 mmol/L [facility] Phone: Bun/Cre Ratio 20 [facility] Phone: Calcium [Mass/Vol] 9.3 mg/dL 8.6 - 10. 4 mg/dL [facility] Phone: Chloride [Moles/Vol] 103 mmol/L 98 - 10 7 mmol/L [facility] Phone: CO2 [Moles/Vol] 29 mmol/L 20 - 31 mmol/L [facility] Phone: Creatinine [Mass/Vol] 1.43 mg/dL High 0.50 - 0.90 mg/dL [facility] Phone: GFR 42 mL/min Low >60 [employer] Phone: GFR Non- 35 mL/min Low >60 [facility] Phone: Glucose [Mass/Vol] 131 mg/dL High 70 - 99 mg/dL [facility] Phone: Phosphate [Mass/Vol] 3.6 mg/dL 2.6 - 4 .5 mg/dL [facility] Phone: Potassium [Moles/Vol] 3.4 mmol/L Low 3.7 - 5.3 mmol/L [facility] Phone: Sodium [Moles/Vol] 143 mmol/L 135 - 144 mmol/L [facility] Phone: Urea nitrogen [Mass/Vol] 29 mg/dL High 8 - 23 mg/dL [facility] Phone: Uric Acidon 12-05-2020 Urate [Mass/Vol] 7.3 mg/dL High 2.4-5.7 [facility] Comment on above: Performed By: #### M G, RENP, URI #### [facility] [address] [place] [address] [place] [address] Cnc Lathe Machinist: Loi Irene MD #### PTHNCA #### [facility] [address] [facility] [place], [place] [id number] Cnc Lathe Machinist: Dg Aparicio MD Urate [Mass/Vol] 7.3 mg/dL High 2.4 - 5.7 mg/dL [facility] Phone: C-Reactive Proteinon 021 CRP [Mass/Vol] 7.8 mg/L High 0.0-5.0 [facility] Comment on above: Performed By: #### C DP, SED #### [address] [place] [address] Cnc Lathe Machinist: Loi Irene MD #### CRP #### [facility] [address] [facility] [place], [place] [id number] Cnc Lathe Machinist: Dg Aparicio MD CRP [Mass/Vol] 7.8 mg/L High 0 - 5 mg/L [facility] Phone: Interpretation and review of laboratory results Abnormal [facility] Phone: CBC Auto Differentialon 10-28 Basophils (Bld) [#/Vol] 10*3/uL [facility] Phone: Basophils/100 WBC (Bld) 0 % 0 - 2 % [facility] Phone: Differential Type NOT REPORTED [facility] Phone: Eosinophils (Bld) [#/Vol] 0.37 10*3/uL [facility] Phone: Eosinophils/100 WBC (Bld) 5 % High 1 - 4 % [facility] Phone: Erythrocyte distribution width (RBC) [Ratio] 17.7 % High 11.8 - 14.4 % [facility] Phone: Hematocrit (Bld) [Volume fraction] 36.9 % 36.3 - 47.1 % [facility] Phone: Hemoglobin (Bld) [Mass/Vol] 11.1 g/dL Low 11.9 - 15.1 g/dL [facility] Phone: Immature granulocytes (Bld) [#/Vol] 10*3/uL [facility] Phone: Immature granulocytes (Bld) [#/Vol] 0 % 0 [facility] Phone: Interpretation and review of laboratory results Abnormal [facility] Phone: Lymphocytes (Bld) [#/Vol] 1.74 10*3/uL [facility] Phone: Lymphocytes/100 WBC (Bld) 23 % Low 24 - 43 % [facility] Phone: MCH (RBC) [Entitic mass] 29.6 pg 25. 2 - 33.5 pg [facility] Phone: MCHC (RBC) [Mass/Vol] 30.1 g/dL 28.4 - 34.8 g/dL [facility] Phone: MCV (RBC) [Entitic vol] 98.4 fL 82.6 - 102.9 fL [facility] Phone: Monocytes (Bld) [#/Vol] 0.76 10*3/uL [facility] Phone: Monocytes/100 WBC (Bld) 10 % 3 - 12 % M [facility] Phone: Platelet mean volume (Bld) [Entitic vol] 9.9 fL 8.1 - 13.5 fL [facility] Phone: Platelets (Bld) [#/Vol] NOT REPORTED [facility] Phone: Platelets (Bld) [#/Vol] 344 10*3/uL [facility] Phone: RBC (Bld) [#/Vol] 3.75 10*6/uL Low 3.95 - 5.1 1 m/uL [facility] Phone: RBC morphology finding Nom (Bld) NOT REPORTED [facility] Phone: Segmented neutrophils/100 WBC (Bld) 62 % 36 - 65 % [facility] Phone: Segs Absolute 4.61 [facility] Phone: WBC (Bld) [#/Vol] 7.5 10*3/uL [facility] Phone: WBC (Bld) [#/Vol] 0.0 10*3/uL 0.0 per 10 0 WBC [facility] Phone: WBC Morphology NOT REPORTED [facility] Phone: CBC with Diffon 11-07-2020 Abs. Basophil <0.03 Normal 0.00-0.20 [facility] Comment on above: Performed By: #### C DP, SED #### [facility] [address] [place] [address] Cnc Lathe Machinist: Loi Irene MD #### CRP #### [address] [address] Cnc Lathe Machinist: Dg Aparicio MD Abs.Imm.Granulocyte <0.03 Normal 0.00-0.30 [facility] Comment on above: Performed By: #### C DP, SED #### [facility] [address] [place] [address] Cnc Lathe Machinist: Loi Irene MD #### CRP #### [address] [address] Cnc Lathe Machinist: Dg Aparicio MD Abs.Neutrophil (Seg) 4.61 k/uL Normal 1.50-8.10 [facility] Comment on above: Performed By: #### C DP, SED #### [facility] [address] [place], [place] 5482783 Cnc Lathe Machinist: Loi Irene MD #### CRP #### [address] [address] Cnc Lathe Machinist: Dg Aparicio MD Basophils/100 WBC (Bld) 0 % Normal 0-2 [facility] Comment on above: Performed By: #### C DP, SED #### [facility] [address] [place] [address] Dr[address] [place] 2484583 Cnc Lathe Machinist: Loi Irene MD #### CRP #### [address] [address] Cnc Lathe Machinist: Dg Aparicio MD Eosinophils (Bld) [#/Vol] 0.37 10*3/uL Normal 0.00-0.44 [facility] Comment on above: Performed By: #### C DP, SED #### [address] [place], [place] 4737283 Cnc Lathe Machinist: Loi Irene MD #### CRP #### [address] [address] Cnc Lathe Machinist: Dg Aparicio MD Eosinophils/100 WBC (Bld) 5 % High 1-4 [facility] Comment on above: Performed By: #### C DP, SED #### [address] [place] [address] Cnc Lathe Machinist: Loi Irene MD #### CRP #### [address] [id number] Cnc Lathe Machinist: Dg Aparicio MD Erythrocyte distribution width (RBC) [Ratio] 17.7 % High 11.8-14.4 [facility] Comment on above: Performed By: #### C DP, SED #### [address] [place], [place] 0258783 Cnc Lathe Machinist: Loi Irene MD #### CRP #### [address] [id number] Cnc Lathe Machinist: Dg Aparicio MD Hematocrit (Bld) [Volume fraction] 36.9 % Normal 36.3-47.1 [facility] Comment on above: Performed By: #### C DP, SED #### [address] [place] 2484583 Cnc Lathe Machinist: Loi Irene MD #### CRP #### [address] [id number] Cnc Lathe Machinist: Dg Aparicio MD Hemoglobin (Bld) [Mass/Vol] 11.1 g/dL Low 11.9-15.1 [facility] Comment on above: Performed By: #### C DP, SED #### [address] [place], [place] 9764283 Cnc Lathe Machinist: Loi Irene MD #### CRP #### [address] [address] Cnc Lathe Machinist: Dg Aparicio MD Immature granulocytes/100 WBC (Bld) 0 % Normal 0 [facility] Comment on above: Performed By: #### C DP, SED #### [address] [place], [place] 4839683 Cnc Lathe Machinist: Loi Irene MD #### CRP #### [address] [id number] Cnc Lathe Machinist: Dg Aparicio MD Lymphocytes (Bld) [#/Vol] 1.74 10*3/uL Normal 1.10-3.70 [facility] Comment on above: Performed By: #### C DP, SED #### [address] [place] 2484583 Cnc Lathe Machinist: Loi Irene MD #### CRP #### [address] 1904408 Cnc Lathe Machinist: Dg Aparicio MD Lymphocytes/100 WBC (Bld) 23 % Low 24-43 [facility] Comment on above: Performed By: #### C DP, SED #### [address] [place] [address] Cnc Lathe Machinist: Loi Irene MD #### CRP #### [place] [address] Cnc Lathe Machinist: Dg Aparicio MD MCH (RBC) [Entitic mass] 29.6 pg Normal 25.2-33.5 [facility] Comment on above: Performed By: #### C DP, SED #### [address] [place] 2484594 ( Cnc Lathe Machinist: Loi Irene MD #### CRP #### [place] [address] Cnc Lathe Machinist: Dg Aparicio MD MCHC (RBC) [Mass/Vol] 30.1 g/dL Normal 28.4-34.8 [facility] Comment on above: Performed By: #### C DP, SED #### [address] [place] 2484583 Cnc Lathe Machinist: Loi Irene MD #### CRP #### [address] [address] Cnc Lathe Machinist: Dg Aparicio MD MCV (RBC) [Entitic vol] 98.4 fL Normal 82.6-102.9 [facility] Comment on above: Performed By: #### C DP, SED #### [facility] [address] [place], [place] 3946583 Cnc Lathe Machinist: Loi Irene MD #### CRP #### [address] [address] Cnc Lathe Machinist: Dg Aparicio MD Monocytes (Bld) [#/Vol] 0.76 10*3/uL Normal 0.10-1.20 [facility] Comment on above: Performed By: #### C DP, SED #### [facility] [address] [place] [address] Dr. [place] 2484583 Cnc Lathe Machinist: Loi Irene MD #### CRP #### [address] [id number] Cnc Lathe Machinist: Dg Aparicio MD Monocytes/100 WBC (Bld) 10 % Normal 3-12 M [facility] Comment on above: Performed By: #### C DP, SED #### [address] [place] 2484583 Cnc Lathe Machinist: Loi Irene MD #### CRP #### [address] [address] Cnc Lathe Machinist: Dg Aparicio MD Neutrophil (Seg) 62 % Normal 36-65 [facility] Comment on above: Performed By: #### C DP, SED #### [facility] [address] [place] [address] Dr. [place] 2484583 Cnc Lathe Machinist: Loi Irene MD #### CRP #### [address] [address] Cnc Lathe Machinist: Dg Aparicio MD NRBC Automated 0.0 per 100 WBC Normal 0.0 [facility] Comment on above: Performed By: #### C DP, SED #### [facility] [address] [place] [address] [place] [address] Cnc Lathe Machinist: Loi Irene MD #### CRP #### [address] [place], [place] [id number] Cnc Lathe Machinist: Dg Aparicio MD Platelet mean volume (Bld) [Entitic vol] 9.9 fL Normal 8.1-13.5 [facility] Comment on above: Performed By: #### C DP, SED #### [facility] [address] [place] [address] [place] [address] Cnc Lathe Machinist: Loi Irene MD #### CRP #### [address] [id number] Cnc Lathe Machinist: Dg Aparicio MD Platelets (Bld) [#/Vol] 344 10*3/uL Normal 138-453 [facility] Comment on above: Performed By: #### C DP, SED #### [address] [place] [id number] Cnc Lathe Machinist: Loi Irene MD #### CRP #### [address] [id number] Cnc Lathe Machinist: Dg Aparicio MD RBC (Bld) [#/Vol] 3.75 10*6/uL Low 3.95-5.11 [facility] Comment on above: Performed By: #### C DP, SED #### [facility] [address] [place] [address] [place], [place] 7310783 Cnc Lathe Machinist: Loi Irene MD #### CRP #### [address] [id number] Cnc Lathe Machinist: Dg Aparicio MD WBC (Bld) [#/Vol] 7.5 10*3/uL Normal 3.5-11.3 [facility] Comment on above: Performed By: #### C DP, SED #### [facility] [address] [place] [address] [place] [address] Cnc Lathe Machinist: Loi Irene MD #### CRP #### [address] [address] Cnc Lathe Machinist: Dg Aparicio MD Auto Diff Performed NOT REPORTED Normal [facility] Comment on above: Performed By: #### C DP, SED #### [address] [place] [address] Cnc Lathe Machinist: Loi Irene MD #### CRP #### [address] [address] Cnc Lathe Machinist: Dg Aparicio MD Platelet Estimate NOT REPORTED Normal [facility] Comment on above: Performed By: #### C DP, SED #### [address] [place] [address] Cnc Lathe Machinist: Loi Irene MD #### CRP #### [address] [address] Cnc Lathe Machinist: Dg Aparicio MD RBC morphology finding Nom (Bld) NOT REPORTED Normal [facility] Comment on above: Performed By: #### C DP, SED #### [address] [place] [address] Cnc Lathe Machinist: oLi Irene MD #### CRP #### [address] [address] Cnc Lathe Machinist: Dg Aparicio MD WBC Morphology NOT REPORTED Normal [facility] Comment on above: Performed By: #### C DP, SED #### [address] [place] [address] Cnc Lathe Machinist: Loi Irene MD #### CRP #### [address] [address] Cnc Lathe Machinist: Dg Aparicio MD Sedimentation Rateon 02-11-2 021 Sedimentation Rate 51 mm High 0-20 [facility] Comment on above: Performed By: #### C DP, SED #### [facility] [address] [place] [address] Cnc Lathe Machinist: Loi Irene MD #### CRP #### [facility] [address] [place] [address] Cnc Lathe Machinist: Dg Aparicio MD Interpretation and review of laboratory results Abnormal [facility] Work Phone: Sed Rate 51 mm High 0 - 20 mm [facility] Work Phone: Lipid Panelon 10-30-2020 Cholesterol [Mass/Vol] 147 mg/dL <200 [place], [place] Comment on above: Cholesterol Guidelines: <200 Desirable 200-240 Borderline >240 Undesirable Cholesterol in HDL [Mass/Vol] 50 mg/dL >40 [place], [place] Comment on above: HDL Guidelines: <40 Undesirable 40-59 Borderline >59 Desirable Cholesterol in LDL [Mass/Vol] 64 mg/dL 0 - 130 mg/dL [place], [place] Comment on above: LDL Guidelines: <100 Desirable 100-129 Near to/above Desirable 130-159 Borderline >159 Undesirable Direct (measured) LDL and calculated LDL are not interchangeable tests. Cholesterol in VLDL [Mass/Vol] NOT REPORTED High 1 - 30 mg/dL [place], [place] Cholesterol.total/Choles terol in HDL [Mass ratio] 2.9 {ratio} <5 [place], [place] Interpretation and review of laboratory results Abnormal [place], [place] Triglyceride [Mass/Vol] 166 mg/dL High <150 M [place], [place] Comment on above: Triglyceride Guidelines: <150 Desirable 150-199 Borderline 200-499 High >499 Very high Based on AHA Guidelines for fasting triglyceride, June 2012. Lipid Profileon 10-30-2020 Cholesterol [Mass/Vol] 147 mg/dL Normal <200 [facility] Comment on above: Result Comment: Cholesterol Guidelines: <200 Desirable 200-240 Borderline >240 Undesirable Performed By: #### L IPR #### [facility] [address] [place] [address] Cnc Lathe Machinist: Dg Aparicio MD Cholesterol in HDL [Mass/Vol] 50 mg/dL Normal >40 [facility] Comment on above: Result Comment: HDL Guidelines: <40 Undesirable 40-59 Borderline >59 Desirable Performed By: #### L IPR #### [address] [address] Cnc Lathe Machinist: Dg Aparicio MD Cholesterol in LDL [Mass/Vol] 64 mg/dL Normal 0-130 [facility] Comment on above: Result Comment: LDL Guidelines: <100 Desirable 100-129 Near to/above Desirable 130-159 Borderline >159 Undesirable Direct (measured) LDL and calculated LDL are not interchangeable tests. Performed By: #### L IPR #### [address] [address] Cnc Lathe Machinist: Dg Aparicio MD Cholesterol.total/Choles terol in HDL [Mass ratio] 2.9 {ratio} Normal <5 [facility] Comment on above: Performed By: #### L IPR #### [address] [address] Cnc Lathe Machinist: Dg Aparicio MD Triglyceride [Mass/Vol] 166 mg/dL High <150 M [facility] Comment on above: Result Comment: Triglyceride Guidelines: <150 Desirable 150-199 Borderline 200-499 High >499 Very high Based on AHA Guidelines for fasting triglyceride, June 2012. Performed By: #### L IPR #### [address] [address] Cnc Lathe Machinist: Dg Aparicio MD Cholesterol,VLDL NOT REPORTED Normal -30 [facility] Comment on above: Performed By: #### L IPR #### [facility] [address] [place] [address] C[employer] Lathe Machinist: Dg Aparicio MD C-Reactive Proteinon 021 CRP [Mass/Vol] 51.2 mg/L High 0.0-5.0 [facility] Comment on above: Performed By: #### C DP #### [address] [place], [place] 2532483 C[employer] Lathe Machinist: Loi Irene MD #### CRP #### [address] [address] Cnc Lathe Machinist: Dg Aparicio MD CRP [Mass/Vol] 51.2 mg/L High 0 - 5 mg/L [place], [place] Interpretation and review of laboratory results Abnormal [place], [place] CBCon 10-23-2020 Erythrocyte distribution width (RBC) [Ratio] 16.5 % High 11.8-14.4 [facility] Comment on above: Performed By: #### C DP #### [address] [place] [id number] C[employer] Lathe Machinist: Loi Irene MD #### CRP #### [address] [address] Cnc Lathe Machinist: Dg Aparicio MD Hematocrit (Bld) [Volume fraction] 32.7 % Low 36.3-47.1 [facility] Comment on above: Performed By: #### C DP #### [address] [place], [place] 0009883 Cnc Lathe Machinist: Loi Irene MD #### CRP #### [address] [address] C[employer] Lathe Machinist: Dg Aparicio MD Hemoglobin (Bld) [Mass/Vol] 10.0 g/dL Low 11.9-15.1 [facility] Comment on above: Performed By: #### C DP #### [address] [place], [place] [id number] [employer] Lathe Machinist: Loi Irene MD #### CRP #### [address] [address] Cnc Lathe Machinist: Dg Aparicio MD MCH (RBC) [Entitic mass] 29.0 pg Normal 25.2-33.5 [facility] Comment on above: Performed By: #### C DP #### [facility] [address] [place] [address] [place] [address] [employer]nc Lathe Machinist: Loi Irene MD #### CRP #### [address] [id number] C[employer] Lathe Machinist: Dg Aparicio MD MCHC (RBC) [Mass/Vol] 30.6 g/dL Normal 28.4-34.8 [facility] Comment on above: Performed By: #### C DP #### [address] [place] [place] [address] [employer] Lathe Machinist: Loi Irene MD #### CRP #### [address] [id number] C[employer] L[employer] Machinist: Dg Aparicio MD MCV (RBC) [Entitic vol] 94.8 fL Normal 82.6-102.9 M [facility] Comment on above: Performed By: #### C DP #### [address] [place] [place] [address] [employer] Lathe Machinist: Loi Irene MD #### CRP #### [address] [id number] C[employer] Lathe Machinist: Dg Aparicio MD NRBC Automated 0.0 per 100 WBC Normal 0.0 [facility] Comment on above: Performed By: #### C DP #### [facility] [address] [place] [address] [address] [place] [id number] C[employer] Lathe Machinist: Loi Irene MD #### CRP #### [address] [address] Cnc Lathe Machinist: Dg Aparicio MD Platelet mean volume (Bld) [Entitic vol] 9.6 fL Normal 8.1-13.5 [facility] Comment on above: Performed By: #### C DP #### [facility] [address] [place], [place] [id number] C[employer] Lathe Machinist: Loi Irene MD #### CRP #### [address] [id number] C[employer] L[employer] Machinist: Dg Aparicio MD Platelets (Bld) [#/Vol] 478 10*3/uL High 138-453 [facility] Comment on above: Performed By: #### C DP #### [facility] [address] [place], [place] [id number] Cnc Lathe Machinist: Loi Irene MD #### CRP #### [address] [id number] C[employer] L[employer] Machinist: Dg Aparicio MD RBC (Bld) [#/Vol] 3.45 10*6/uL Low 3.95-5.11 [facility] Comment on above: Performed By: #### C DP #### [facility] [address] [place], [place] [id number] C[employer] Lathe Machinist: Loi Irene MD #### CRP #### [address] [address] C[employer] Lathe Machinist: Dg Aparicio MD WBC (Bld) [#/Vol] 8.2 10*3/uL Normal 3.5-11.3 [facility] Comment on above: Performed By: #### C DP #### [facility] [address] [place], [place] [id number] Cnc Lathe Machinist: Loi Irene MD #### CRP #### [address] [address] Cnc Lathe Machinist: Dg Aparicio MD Erythrocyte distribution width (RBC) [Ratio] 16.5 % High 11.8 - 14.4 % [place] Hematocrit (Bld) [Volume fraction] 32.7 % Low 36.3 - 47.1 % [place] Hemoglobin (Bld) [Mass/Vol] 10.0 g/dL Low 11.9 - 15.1 g/dL [place] Interpretation and review of laboratory results Abnormal [place] MCH (RBC) [Entitic mass] 29.0 pg 25. 2 - 33.5 pg [place] MCHC (RBC) [Mass/Vol] 30.6 g/dL 28.4 - 34.8 g/dL [place] MCV (RBC) [Entitic vol] 94.8 fL 82.6 - 102.9 fL [place] Platelet mean volume (Bld) [Entitic vol] 9.6 fL 8.1 - 13.5 fL [place] Platelets (Bld) [#/Vol] 478 10*3/uL High [place] RBC (Bld) [#/Vol] 3.45 10*6/uL Low 3.95 - 5.1 1 m/uL [place] WBC (Bld) [#/Vol] 8.2 10*3/uL [place] WBC (Bld) [#/Vol] 0.0 10*3/uL 0.0 per 10 0 WBC [place] Comp Metabolic Profon 2020 (cont.) Normal [facility] Comment on above: Result Comment: Aver age GFR for 70 or more years old: 75 mL/min/1.73sq m Chronic Kidney Disease: <60 mL/min/1.73sq m Kidney failure: <15 mL/min/1.73sq m eGFR calculated using average adult body mass. Additional eGFR calculator available at: http://[email or web address]/multiple_crcl_2011.htm Performed By: #### C DP #### [facility] [address] [place] [address] Cnc Lathe Machinist: Loi Irene MD #### CRP #### [facility] [address] [place] [address] Cnc Lathe Machinist: Dg Apariico MD Albumin [Mass/Vol] 3.0 g/dL Low 3.5-5.2 [facility] Comment on above: Performed By: #### C DP #### [facility] [address] [place], [place] [id number] Cnc Lathe Machinist: Loi Irene MD #### CRP #### [address] [address] C[employer] Lathe Machinist: Dg Aparicio MD Albumin/Glob Ratio 0.8 Low 1.0-2.5 [facility] Comment on above: Performed By: #### C DP #### [address] [place], [place] [phone] C[employer] Lathe Machinist: Loi Irene MD #### CRP #### [address] [address] Cnc Lathe Machinist: Dg Aparicio MD Alkaline Phos 105 U/L High 35-104 [facility] Comment on above: Performed By: #### C DP #### [address] [place], [place] [id number] Cnc Lathe Machinist: Loi Irene MD #### CRP #### [address] [address] Cnc Lathe Machinist: Dg Aparicio MD ALT [Catalytic activity/Vol] 11 U/L Normal 5-33 [facility] Comment on above: Performed By: #### C DP #### [address] [place] [address] Cnc Lathe Machinist: Loi Irene MD #### CRP #### [address] [address] Cnc Lathe Machinist: Dg Aparicio MD Anion gap [Moles/Vol] 11 mmol/L Normal 9-17 [facility] Comment on above: Performed By: #### C DP #### [facility] [address] [place] [address] Dr. [place], [place] [id number] C[employer] Lathe Machinist: Loi Irene MD #### CRP #### [facility] [address] [place] [address] Cnc Lathe Machinist: Dg Aparicio MD AST [Catalytic activity/Vol] 14 U/L Normal <32 [facility] Comment on above: Performed By: #### C DP #### [facility] [address] [place] [address] Cnc Lathe Machinist: Loi Irene MD #### CRP #### [address] [address] Cnc Lathe Machinist: Dg Aparicio MD Bilirubin [Mass/Vol] 0.24 mg/dL Low 0.3-1.2 [facility] Comment on above: Performed By: #### C DP #### [facility] [address] [place] [address] Cnc Lathe Machinist: Loi Irene MD #### CRP #### [address] [address] Cnc Lathe Machinist: Dg Aparicio MD BUN/CRE Ratio 22 High 9-20 [facility] Comment on above: Performed By: #### C DP #### [facility] [address] [place] [address] Cnc Lathe Machinist: Loi Irene MD #### CRP #### [address] [address] Cnc Lathe Machinist: Dg Aparicio MD Calcium [Mass/Vol] 8.9 mg/dL Normal 8.6-10.4 [facility] Comment on above: Performed By: #### C DP #### [facility] [address] [place] [address] Cnc Lathe Machinist: Loi Irene MD #### CRP #### [address] [address] Cnc Lathe Machinist: Dg Aparicio MD Chloride [Moles/Vol] 99 mmol/L Normal 98-107 [facility] Comment on above: Performed By: #### C DP #### [facility] [address] [place], [place] [id number] Cnc Lathe Machinist: Loi Irene MD #### CRP #### [address] [address] Cnc Lathe Machinist: Dg Aparicio MD CO2 [Moles/Vol] 28 mmol/L Normal 20-31 [facility] Comment on above: Performed By: #### C DP #### [facility] [address] [place] [address] Cnc Lathe Machinist: Loi Irene MD #### CRP #### [address] [address] Cnc Lathe Machinist: Dg Aparicio MD Creatinine [Mass/Vol] 1.27 mg/dL High 0.50-0.90 [facility] Comment on above: Performed By: #### C DP #### [facility] [address] [place] [address] Cnc Lathe Machinist: Loi Irene MD #### CRP #### [address] [address] Cnc Lathe Machinist: Dg Aparicio MD GFR, Amer 49 mL/min Low >60 [facility] Comment on above: Performed By: #### C DP #### [facility] [address] [place], [place] [id number] Cnc Lathe Machinist: Loi Irene MD #### CRP #### [address] [address] Cnc Lathe Machinist: Dg Aparicio MD GFR,non Amer 40 mL/min Low >60 [facility] Comment on above: Performed By: #### C DP #### [address] [place] [address] Cnc Lathe Machinist: Loi Irene MD #### CRP #### [place] [address] [place] [address] Cnc Lathe Machinist: Dg Aparicio MD Glucose [Mass/Vol] 159 mg/dL High 70-99 [facility] Comment on above: Performed By: #### C DP #### [address] [place] [place] [address] Cnc Lathe Machinist: Loi Irene MD #### CRP #### [address] [address] Cnc Lathe Machinist: Dg Aparicio MD Potassium [Moles/Vol] 3.3 mmol/L Low 3.7-5.3 [facility] Comment on above: Performed By: #### C DP #### [address] [place], [place] [id number] Cnc Lathe Machinist: Loi Irene MD #### CRP #### [address] [address] Cnc Lathe Machinist: Dg Aparicio MD Protein [Mass/Vol] 6.7 g/dL Normal 6.4-8.3 [facility] Comment on above: Performed By: #### C DP #### [address] [place] [place] [address] Cnc Lathe Machinist: Loi Irene MD #### CRP #### [address] [address] Cnc Lathe Machinist: Dg Aparicio MD Sodium [Moles/Vol] 138 mmol/L Normal 135-144 [facility] Comment on above: Performed By: #### C DP #### [address] [place], [place] [phone] Cnc Lathe Machinist: Loi Irene MD #### CRP #### [facility] [address] [place], [place] [id number] Cnc Lathe Machinist: Dg Aparicio MD Staging: Normal [facility] Comment on above: Result Comment: Stag e 1: Some kidney damage normal GFR Stage 2: Mild kidney damage GFR 60-89 Stage 3: Moderate kidney damage GFR 30-59 Stage 4: Severe kidney damage GFR 15-29 Stage 5: Severe kidney damage GFR <15 ESRD - chronic treatment by dialysis or transplant Performed By: #### C DP #### [facility] [address] [place] [address] [place] [address] Cnc Lathe Machinist: Loi Irene MD #### CRP #### [facility] [address] [place], [place] [id number] Cnc Lathe Machinist: Dg Aparicio MD Urea nitrogen [Mass/Vol] 28 mg/dL High 8-23 [facility] Comment on above: Performed By: #### C DP #### [address] [place] [place] [address] Cnc Lathe Machinist: Loi Irene MD #### CRP #### [place] [address] [place], [place] [id number] Cnc Lathe Machinist: Dg Aparicio MD Comprehensive Metabolic Pane [facility] 10-23-2020 Albumin [Mass/Vol] 3 g/dL Low 3.5 - 5.2 g/dL [place] Albumin/Globulin [Mass ratio] 0.8 {ratio} Low [place] ALP [Catalytic activity/Vol] 105 U/L High 35 - 104 U/L [place] ALT [Catalytic activity/Vol] 11 U/L 5 - 33 U/L [place] Anion gap [Moles/Vol] 11 mmol/L 9 - 17 mmol/L [place] AST [Catalytic activity/Vol] 14 U/L <32 [place] Bilirubin Ql (U) 0.24 mg/dL Low 0.3 - 1.2 mg/dL [place] Bun/Cre Ratio 22 High [place] Calcium [Mass/Vol] 8.9 mg/dL 8.6 - 10. 4 mg/dL [place] Chloride [Moles/Vol] 99 mmol/L 98 - 10 7 mmol/L [place] CO2 [Moles/Vol] 28 mmol/L 20 - 31 mmol/L [place] Creatinine [Mass/Vol] 1.27 mg/dL High 0.5 - 0.9 mg/dL [place] GFR 49 mL/min Low >60 [place] GFR Non- 40 mL/min Low >60 [place] Glucose [Mass/Vol] 159 mg/dL High 70 - 99 mg/dL [place] Interpretation and review of laboratory results Abnormal [place] Potassium [Moles/Vol] 3.3 mmol/L Low 3.7 - 5.3 mmol/L [place] Protein [Mass/Vol] 6.7 g/dL 6.4 - 8.3 g/dL [place] Sodium [Moles/Vol] 138 mmol/L 135 - 144 mmol/L [place] Urea nitrogen [Mass/Vol] 28 mg/dL High 8 - 23 mg/dL [place] Metabolic Panelon 10-23-2020 GFR/1.73 sq M predicted among non-blacks MDRD (S/P/Bld) [Vol rate/Area] [place] Comment on above: Average GFR for 70 o r more years old: 75 mL/min/1.73sq m Chronic Kidney Disease: <60 mL/min/1.73sq m Kidney failure: <15 mL/min/1.73sq m eGFR calculated using average adult body mass. Additional eGFR calculator available at: http://www.[employer]/multiple_crcl_2011.htm Stage 1: Some kidney damage normal GFR Stage 2: Mild kidney damage GFR 60-89 Stage 3: Moderate kidney damage GFR 30-59 Stage 4: Severe kidney damage GFR 15-29 Stage 5: Severe kidney damage GFR <15 ESRD - chronic treatment by dialysis or transplant Sedimentation Rateon 021 Sedimentation Rate 101 mm High 0-20 [facility] Comment on above: Performed By: #### C DP #### [facility] [address] [place] [address] Cnc Lathe Machinist: Loi Irene MD #### CRP #### [facility] [address] [place], [place] [id number] Cnc Lathe Machinist: Dg Aparicio MD Interpretation and review of laboratory results Abnormal [place] Sed Rate 101 mm High 0 - 20 mm [place] C-Reactive Proteinon 020 CRP [Mass/Vol] 33.8 mg/L High 0 - 5 mg/L [place] Interpretation and review of laboratory results Abnormal [place] CBCon 09-26-2020 Erythrocyte distribution width (RBC) [Ratio] 14.3 % 11.8 - 14.4 % [place] Hematocrit (Bld) [Volume fraction] 38.8 % 36.3 - 47.1 % [place] Hemoglobin (Bld) [Mass/Vol] 11.8 g/dL Low 11.9 - 15.1 g/dL [place] Interpretation and review of laboratory results Abnormal [place] MCH (RBC) [Entitic mass] 28.5 pg 25. 2 - 33.5 pg [place] MCHC (RBC) [Mass/Vol] 30.4 g/dL 28.4 - 34.8 g/dL [place] MCV (RBC) [Entitic vol] 93.7 fL 82.6 - 102.9 fL [place] Platelet mean volume (Bld) [Entitic vol] 9.9 fL 8.1 - 13.5 fL [place] Platelets (Bld) [#/Vol] 230 10*3/uL [place] RBC (Bld) [#/Vol] 4.14 10*6/uL 3.95 - 5.1 1 m/uL [place] WBC (Bld) [#/Vol] 6.9 10*3/uL [place] WBC (Bld) [#/Vol] 0.0 10*3/uL 0.0 per 10 0 WBC [place] Comprehensive Metabolic Pane r[facility] 09-26-2020 Albumin [Mass/Vol] 3.4 g/dL Low 3.5 - 5.2 g/dL [place] Albumin/Globulin [Mass ratio] 1.0 {ratio} [place] ALP [Catalytic activity/Vol] 131 U/L High 35 - 104 U/L [place] ALT [Catalytic activity/Vol] 23 U/L 5 - 33 U/L [place] Anion gap [Moles/Vol] 13 mmol/L 9 - 17 mmol/L [place] AST [Catalytic activity/Vol] 21 U/L <32 [place] Bilirubin Ql (U) 0.36 mg/dL 0.3 - 1.2 mg/dL [place] Bun/Cre Ratio 24 High [place] Calcium [Mass/Vol] 8.7 mg/dL 8.6 - 10. 4 mg/dL [place] Chloride [Moles/Vol] 96 mmol/L Low 98 - 10 7 mmol/L [place] CO2 [Moles/Vol] 28 mmol/L 20 - 31 mmol/L [place] Creatinine [Mass/Vol] 1.27 mg/dL High 0.5 - 0.9 mg/dL [place] GFR 49 mL/min Low >60 [place] GFR Non- 40 mL/min Low >60 [place] Glucose [Mass/Vol] 138 mg/dL High 70 - 99 mg/dL [place] Interpretation and review of laboratory results Abnormal [place] Potassium [Moles/Vol] 3.4 mmol/L Low 3.7 - 5.3 mmol/L [place] Protein [Mass/Vol] 6.7 g/dL 6.4 - 8.3 g/dL [place] Sodium [Moles/Vol] 137 mmol/L 135 - 144 mmol/L [place] Urea nitrogen [Mass/Vol] 31 mg/dL High 8 - 23 mg/dL [place] Magnesiumon 09-26-2020 Magnesium [Mass/Vol] 2.1 mg/dL 1.6 - 2 .6 mg/dL [place] Metabolic Panelon 09-26-2020 GFR/1.73 sq M predicted among non-blacks MDRD (S/P/Bld) [Vol rate/Area] [place] Comment on above: Average GFR for 70 o r more years old: 75 mL/min/1.73sq m Chronic Kidney Disease: <60 mL/min/1.73sq m Kidney failure: <15 mL/min/1.73sq m eGFR calculated using average adult body mass. Additional eGFR calculator available at: http://www.[employer]/multiple_crcl_2012.htm Stage 1: Some kidney damage normal GFR Stage 2: Mild kidney damage GFR 60-89 Stage 3: Moderate kidney damage GFR 30-59 Stage 4: Severe kidney damage GFR 15-29 Stage 5: Severe kidney damage GFR <15 ESRD - chronic treatment by dialysis or transplant Sedimentation Rateon 020 Interpretation and review of laboratory results Abnormal [place] Sed Rate 53 mm High 0 - 20 mm [place] C-Reactive Proteinon CRP [Mass/Vol] 43.7 mg/L High 0 - 5 mg/L [place] Interpretation and review of laboratory results Abnormal [place] CBCon 09-18-2020 Erythrocyte distribution width (RBC) [Ratio] 14.0 % 11.8 - 14.4 % [place] Hematocrit (Bld) [Volume fraction] 37.2 % 36.3 - 47.1 % [place] Hemoglobin (Bld) [Mass/Vol] 11.4 g/dL Low 11.9 - 15.1 g/dL [place] Interpretation and review of laboratory results Abnormal [place] MCH (RBC) [Entitic mass] 29.2 pg 25. 2 - 33.5 pg [place] MCHC (RBC) [Mass/Vol] 30.6 g/dL 28.4 - 34.8 g/dL [place] MCV (RBC) [Entitic vol] 95.4 fL 82.6 - 102.9 fL [place] Platelet mean volume (Bld) [Entitic vol] 10.6 fL 8.1 - 13.5 fL [place] Platelets (Bld) [#/Vol] 254 10*3/uL [place] RBC (Bld) [#/Vol] 3.90 10*6/uL Low 3.95 - 5.1 1 m/uL [place] WBC (Bld) [#/Vol] 8.3 10*3/uL [place] WBC (Bld) [#/Vol] 0.0 10*3/uL 0.0 per 10 0 WBC [place] Comprehensive Metabolic Pane r[facility] 09-18-2020 Albumin [Mass/Vol] 3.3 g/dL Low 3.5 - 5.2 g/dL [place] Albumin/Globulin [Mass ratio] 1.1 {ratio} [place] ALP [Catalytic activity/Vol] 137 U/L High 35 - 104 U/L [place] ALT [Catalytic activity/Vol] 14 U/L 5 - 33 U/L [place] Anion gap [Moles/Vol] 8 mmol/L Low 9 - 17 mmol/L [place] AST [Catalytic activity/Vol] 12 U/L <32 [place] Bilirubin Ql (U) 0.27 mg/dL Low 0.3 - 1.2 mg/dL [place] Bun/Cre Ratio 30 High [place] Calcium [Mass/Vol] 8.9 mg/dL 8.6 - 10. 4 mg/dL [place] Chloride [Moles/Vol] 95 mmol/L Low 98 - 10 7 mmol/L [place] CO2 [Moles/Vol] 30 mmol/L 20 - 31 mmol/L [place] Creatinine [Mass/Vol] 1.21 mg/dL High 0.5 - 0.9 mg/dL [place] GFR 52 mL/min Low >60 [place] GFR Non- 42 mL/min Low >60 [place] Glucose [Mass/Vol] 206 mg/dL High 70 - 99 mg/dL [place] Interpretation and review of laboratory results Abnormal [place] Potassium [Moles/Vol] 2.9 mmol/L Critically low 3.7 - 5.3 mmol/L [place] Protein [Mass/Vol] 6.4 g/dL 6.4 - 8.3 g/dL [place] Sodium [Moles/Vol] 133 mmol/L Low 135 - 144 mmol/L [place] Urea nitrogen [Mass/Vol] 36 mg/dL High 8 - 23 mg/dL [place] Metabolic Panelon 09-18-2020 GFR/1.73 sq M predicted among non-blacks MDRD (S/P/Bld) [Vol rate/Area] [place] Comment on above: Average GFR for 70 o r more years old: 75 mL/min/1.73sq m Chronic Kidney Disease: <60 mL/min/1.73sq m Kidney failure: <15 mL/min/1.73sq m eGFR calculated using average adult body mass. Additional eGFR calculator available at: http://www.[employer]/multiple_crcl_2012.htm Stage 1: Some kidney damage normal GFR Stage 2: Mild kidney damage GFR 60-89 Stage 3: Moderate kidney damage GFR 30-59 Stage 4: Severe kidney damage GFR 15-29 Stage 5: Severe kidney damage GFR <15 ESRD - chronic treatment by dialysis or transplant Sedimentation Rateon Interpretation and review of laboratory results Abnormal [place] Sed Rate 37 mm High 0 - 20 mm [place] C-Reactive Proteinon CRP [Mass/Vol] 17.9 mg/L High 0 - 5 mg/L [place] Interpretation and review of laboratory results Abnormal [place] CBCon 09-11-2020 Erythrocyte distribution width (RBC) [Ratio] 13.8 % 11.8 - 14.4 % [place] Hematocrit (Bld) [Volume fraction] 37.9 % 36.3 - 47.1 % [place] Hemoglobin (Bld) [Mass/Vol] 11.4 g/dL Low 11.9 - 15.1 g/dL [place] Interpretation and review of laboratory results Abnormal [place] MCH (RBC) [Entitic mass] 28.4 pg 25. 2 - 33.5 pg [place] MCHC (RBC) [Mass/Vol] 30.1 g/dL 28.4 - 34.8 g/dL [place] MCV (RBC) [Entitic vol] 94.5 fL 82.6 - 102.9 fL [place] Platelet mean volume (Bld) [Entitic vol] 10.7 fL 8.1 - 13.5 fL [place] Platelets (Bld) [#/Vol] 269 10*3/uL [place] RBC (Bld) [#/Vol] 4.01 10*6/uL 3.95 - 5.1 1 m/uL [place] WBC (Bld) [#/Vol] 0.0 10*3/uL 0.0 per 10 0 WBC [place] WBC (Bld) [#/Vol] 7.1 10*3/uL [place] Comprehensive Metabolic Pane riddhi 09-11-2020 Albumin [Mass/Vol] 3.8 g/dL 3.5 - 5.2 g/dL [place] Albumin/Globulin [Mass ratio] 1.7 {ratio} [place] ALP [Catalytic activity/Vol] 145 U/L High 35 - 104 U/L [place] ALT [Catalytic activity/Vol] 14 U/L 5 - 33 U/L [place] Anion gap [Moles/Vol] 13 mmol/L 9 - 17 mmol/L [place] AST [Catalytic activity/Vol] 12 U/L <32 [place] Bilirubin Ql (U) 0.28 mg/dL Low 0.3 - 1.2 mg/dL [place] Bun/Cre Ratio 35 High [place] Calcium [Mass/Vol] 9.3 mg/dL 8.6 - 10. 4 mg/dL [place] Chloride [Moles/Vol] 98 mmol/L 98 - 10 7 mmol/L [place] CO2 [Moles/Vol] 28 mmol/L 20 - 31 mmol/L [place] Creatinine [Mass/Vol] 1.33 mg/dL High 0.5 - 0.9 mg/dL [place] GFR 46 mL/min Low >60 [place] GFR Non- 38 mL/min Low >60 [place] Glucose [Mass/Vol] 150 mg/dL High 70 - 99 mg/dL [place] Interpretation and review of laboratory results Abnormal [place] Potassium [Moles/Vol] 3.0 mmol/L Low 3.7 - 5.3 mmol/L [place] Protein [Mass/Vol] 6.1 g/dL Low 6.4 - 8.3 g/dL [place] Sodium [Moles/Vol] 139 mmol/L 135 - 144 mmol/L [place] Urea nitrogen [Mass/Vol] 46 mg/dL High 8 - 23 mg/dL [place] Metabolic Panelon 09-11-2020 GFR/1.73 sq M predicted among non-blacks MDRD (S/P/Bld) [Vol rate/Area] [place] Comment on above: Average GFR for 70 o r more years old: 75 mL/min/1.73sq m Chronic Kidney Disease: <60 mL/min/1.73sq m Kidney failure: <15 mL/min/1.73sq m eGFR calculated using average adult body mass. Additional eGFR calculator available at: http://www.[employer]/multiple_crcl_2012.htm Stage 1: Some kidney damage normal GFR Stage 2: Mild kidney damage GFR 60-89 Stage 3: Moderate kidney damage GFR 30-59 Stage 4: Severe kidney damage GFR 15-29 Stage 5: Severe kidney damage GFR <15 ESRD - chronic treatment by dialysis or transplant Sedimentation Rateon 020 Interpretation and review of laboratory results Abnormal [place] Sed Rate 34 mm High 0 - 20 mm [place] C-Reactive Proteinon 020 CRP [Mass/Vol] 11.1 mg/L High 0 - 5 mg/L [place] Interpretation and review of laboratory results Abnormal [place] Comprehensive Metabolic Pane riddhi 09-06-2020 Albumin [Mass/Vol] 3.8 g/dL 3.5 - 5.2 g/dL [place] Albumin/Globulin [Mass ratio] 1.2 {ratio} [place] ALP [Catalytic activity/Vol] 149 U/L High 35 - 104 U/L [place] ALT [Catalytic activity/Vol] 18 U/L 5 - 33 U/L [place] Anion gap [Moles/Vol] 13 mmol/L 9 - 17 mmol/L [place] AST [Catalytic activity/Vol] 18 U/L <32 [place] Bilirubin Ql (U) 0.28 mg/dL Low 0.3 - 1.2 mg/dL [place] Bun/Cre Ratio 33 High [place] Calcium [Mass/Vol] 9.8 mg/dL 8.6 - 10. 4 mg/dL [place] Chloride [Moles/Vol] 97 mmol/L Low 98 - 10 7 mmol/L [place] CO2 [Moles/Vol] 28 mmol/L 20 - 31 mmol/L [place] Creatinine [Mass/Vol] 1.33 mg/dL High 0.5 - 0.9 mg/dL [place] GFR 46 mL/min Low >60 [place] GFR Non- 38 mL/min Low >60 [place] Glucose [Mass/Vol] 209 mg/dL High 70 - 99 mg/dL [place] Interpretation and review of laboratory results Abnormal [place] Potassium [Moles/Vol] 3.0 mmol/L Low 3.7 - 5.3 mmol/L [place] Protein [Mass/Vol] 7.0 g/dL 6.4 - 8.3 g/dL [place] Sodium [Moles/Vol] 138 mmol/L 135 - 144 mmol/L [place] Urea nitrogen [Mass/Vol] 44 mg/dL High 8 - 23 mg/dL [place] Metabolic Panelon 09-06-2020 GFR/1.73 sq M predicted among non-blacks MDRD (S/P/Bld) [Vol rate/Area] [place], [place] Comment on above: Stage 1: Some [...] body mass. Additional eGFR calculator available at: http://[email or web address] [facility]Con 09-05-2020 Erythrocyte distribution width (RBC) [Ratio] 13.9 % 11.8 - 14.4 % [place] Hematocrit (Bld) [Volume fraction] 39.5 % 36.3 - 47.1 % [place] Hemoglobin (Bld) [Mass/Vol] 12.0 g/dL 11.9 - 15.1 g/dL [place] MCH (RBC) [Entitic mass] 29.0 pg 25. 2 - 33.5 pg [place] MCHC (RBC) [Mass/Vol] 30.4 g/dL 28.4 - 34.8 g/dL [place] MCV (RBC) [Entitic vol] 95.4 fL 82.6 - 102.9 fL [place] Platelet mean volume (Bld) [Entitic vol] 10.3 fL 8.1 - 13.5 fL [place] Platelets (Bld) [#/Vol] 295 10*3/uL [place] RBC (Bld) [#/Vol] 4.14 10*6/uL 3.95 - 5.1 1 m/uL [place] WBC (Bld) [#/Vol] 7.8 10*3/uL [place] WBC (Bld) [#/Vol] 0.0 10*3/uL 0.0 per 10 0 WBC [place] Comprehensive Metabolic Pane riddhi 09-05-2020 Albumin [Mass/Vol] 3.9 g/dL 3.5 - 5.2 g/dL [place] Albumin/Globulin [Mass ratio] 1.3 {ratio} [place] ALP [Catalytic activity/Vol] 143 U/L High 35 - 104 U/L [place] ALT [Catalytic activity/Vol] 15 U/L 5 - 33 U/L [place] Anion gap [Moles/Vol] 12 mmol/L 9 - 17 mmol/L [place] AST [Catalytic activity/Vol] 17 U/L <32 [place] Bilirubin Ql (U) 0.32 mg/dL 0.3 - 1.2 mg/dL [place] Bun/Cre Ratio 39 High [place] Calcium [Mass/Vol] 9.5 mg/dL 8.6 - 10. 4 mg/dL [place] Chloride [Moles/Vol] 100 mmol/L 98 - 10 7 mmol/L [place] CO2 [Moles/Vol] 29 mmol/L 20 - 31 mmol/L [place] Creatinine [Mass/Vol] 1.29 mg/dL High 0.5 - 0.9 mg/dL [place] GFR 48 mL/min Low >60 [place] GFR Non- 39 mL/min Low >60 [place] Glucose [Mass/Vol] 191 mg/dL High 70 - 99 mg/dL [place] Interpretation and review of laboratory results Abnormal [place] Potassium [Moles/Vol] 3.3 mmol/L Low 3.7 - 5.3 mmol/L [place] Protein [Mass/Vol] 7.0 g/dL 6.4 - 8.3 g/dL [place] Sodium [Moles/Vol] 141 mmol/L 135 - 144 mmol/L [place] Urea nitrogen [Mass/Vol] 50 mg/dL High 8 - 23 mg/dL [place] Metabolic Panelon 09-05-2020 GFR/1.73 sq M predicted among non-blacks MDRD (S/P/Bld) [Vol rate/Area] [place] Comment on above: Stage 1: Some [...] body mass. Additional eGFR calculator available at: http://www.[facility]/multiple_crcl_2012.htm Sedimentation Rateon 020 Interpretation and review of laboratory results Abnormal [place] Sed Rate 38 mm High 0 - 20 mm [place] C-Reactive Proteinon 020 CRP [Mass/Vol] 9.3 mg/L High 0 - 5 mg/L [place] Interpretation and review of laboratory results Abnormal [place] CBCon 08-28-2020 Erythrocyte distribution width (RBC) [Ratio] 13.5 % 11.8 - 14.4 % [place] Hematocrit (Bld) [Volume fraction] 37.9 % 36.3 - 47.1 % [place] Hemoglobin (Bld) [Mass/Vol] 11.9 g/dL 11.9 - 15.1 g/dL [place] MCH (RBC) [Entitic mass] 29.3 pg 25. 2 - 33.5 pg [place] MCHC (RBC) [Mass/Vol] 31.4 g/dL 28.4 - 34.8 g/dL [place] MCV (RBC) [Entitic vol] 93.3 fL 82.6 - 102.9 fL [place] Platelet mean volume (Bld) [Entitic vol] 10.1 fL 8.1 - 13.5 fL [place] Platelets (Bld) [#/Vol] 303 10*3/uL [place] RBC (Bld) [#/Vol] 4.06 10*6/uL 3.95 - 5.1 1 m/uL [place] WBC (Bld) [#/Vol] 6.9 10*3/uL [place] WBC (Bld) [#/Vol] 0.0 10*3/uL 0.0 per 10 0 WBC [place] Comprehensive Metabolic Pane riddhi 08-28-2020 Albumin [Mass/Vol] 3.5 g/dL 3.5 - 5.2 g/dL [place] Albumin/Globulin [Mass ratio] 1.2 {ratio} [place] ALP [Catalytic activity/Vol] 134 U/L High 35 - 104 U/L [place] ALT [Catalytic activity/Vol] 12 U/L 5 - 33 U/L [place] Anion gap [Moles/Vol] 11 mmol/L 9 - 17 mmol/L [place] AST [Catalytic activity/Vol] 14 U/L <32 [place] Bilirubin Ql (U) 0.22 mg/dL Low 0.3 - 1.2 mg/dL [place] Bun/Cre Ratio 38 High [place] Calcium [Mass/Vol] 9.1 mg/dL 8.6 - 10. 4 mg/dL [place] Chloride [Moles/Vol] 105 mmol/L 98 - 10 7 mmol/L [place] CO2 [Moles/Vol] 27 mmol/L 20 - 31 mmol/L [place] Creatinine [Mass/Vol] 1.13 mg/dL High 0.5 - 0.9 mg/dL [place] GFR 56 mL/min Low >60 [place] GFR Non- 46 mL/min Low >60 [place] Glucose [Mass/Vol] 174 mg/dL High 70 - 99 mg/dL [place] Interpretation and review of laboratory results Abnormal [place] Potassium [Moles/Vol] 3.5 mmol/L Low 3.7 - 5.3 mmol/L [place] Protein [Mass/Vol] 6.4 g/dL 6.4 - 8.3 g/dL [place] Sodium [Moles/Vol] 143 mmol/L 135 - 144 mmol/L [place] Urea nitrogen [Mass/Vol] 43 mg/dL High 8 - 23 mg/dL [place] Metabolic Panelon 08-28-2020 GFR/1.73 sq M predicted among non-blacks MDRD (S/P/Bld) [Vol rate/Area] [place] Comment on above: Average GFR for 70 o r more years old: 75 mL/min/1.73sq m Chronic Kidney Disease: <60 mL/min/1.73sq m Kidney failure: <15 mL/min/1.73sq m eGFR calculated using average adult body mass. Additional eGFR calculator available at: http://www.[facility]/multiple_crcl_2012.htm Stage 1: Some kidney damage normal GFR Stage 2: Mild kidney damage GFR 60-89 Stage 3: Moderate kidney damage GFR 30-59 Stage 4: Severe kidney damage GFR 15-29 Stage 5: Severe kidney damage GFR <15 ESRD - chronic treatment by dialysis or transplant Sedimentation Rateon 020 Interpretation and review of laboratory results Abnormal [place] Sed Rate 30 mm High 0 - 20 mm [place] Infectious Disease Office/Cl inic Noteon 08-27-2020 [...] cephalexin and antibiotics to be adjusted by prison physician based on culture. Problem List/Past Medical [...] the leg ulcer area. Electronically signed by Frannie KUMAR, Manuel Brody 08/29/20 09:08 EST Normal [facility] Microscopic Urinalysison Amorphous, UA NOT REPORTED None [facility] Bacteria, UA 4+ Abnormal None [facility] [place] Casts UA NOT REPORTED /LPF [facility] Crystals, UA 10 TO 20 Abnormal None /HPF [facility] Crystals, UA TRIPLE PHOSPHATE Abnormal None /HPF [facility] Epithelial Cells UA 5 TO 10 [facility] Interpretation and review of laboratory results Abnormal [facility] Mucus, UA NOT REPORTED None [facility] Other Observations UA NOT REPORTED NOT REQ. M [facility] [place] RBC (U) [#/Vol] 20 TO 50 [facility] Renal Epithelial, UA NOT REPORTED 0 /HPF Me [facility] Trichomonas, UA NOT REPORTED None [facility] WBC, UA GREATER THAN 100 [facility] Yeast, UA NOT REPORTED None [facility] - [facility] Provider Letteron 08-27-2020 Provider Letter Justino Dhaliwal, [address] [place] [id number] Re: Jesús Nolan Date of Visit: 08/27/[address] Dhaliwal, Thank you for your referral to my office. Attached you will find the most recent office visit note. Please call if you have any questions or concerns. Sincerely, Manuel Ibarra MD [address] [place] [address], [address] [place] [address] The following document(s) were included in the letter: August 27, 2020 15:16:22 EST - (08/27/2020) Telehealth Office Visit Note Normal [facility] Urinalysison 08-27-2020 Bilirubin Urine Negative NEGATIVE [place] Color, UA YELLOW YELLOW [place] Glucose, Ur Negative NEGATIVE [place] Interpretation and review of laboratory results Abnormal [place] Ketones Ql (U) Negative NEGATIVE [place] Leukocyte esterase Test strip Ql (U) LARGE Abnormal NEGATIVE [place] Nitrite, Urine Negative NEGATIVE [place] pH, UA >=9.0 [place] Protein (U) [Mass/Vol] 2+ Abnormal NEGATIVE [place] Specific [place], UA 1.010 [place] Turbidity UA CLOUDY Abnormal CLEAR [place] Urinalysis Comments NOT REPORTED [place] Urine Hgb Negative NEGATIVE [place] Urobilinogen, Urine Normal Normal [place] C-Reactive Proteinon 020 CRP [Mass/Vol] 26.8 mg/L High 0 - 5 mg/L [place] Interpretation and review of laboratory results Abnormal [place] CBCon 08-21-2020 Erythrocyte distribution width (RBC) [Ratio] 13.7 % 11.8 - 14.4 % [place] Hematocrit (Bld) [Volume fraction] 40.0 % 36.3 - 47.1 % [place] Hemoglobin (Bld) [Mass/Vol] 11.9 g/dL 11.9 - 15.1 g/dL [place] MCH (RBC) [Entitic mass] 29.0 pg 25. 2 - 33.5 pg [place] MCHC (RBC) [Mass/Vol] 29.8 g/dL 28.4 - 34.8 g/dL [place] MCV (RBC) [Entitic vol] 97.3 fL 82.6 - 102.9 fL [place] Platelet mean volume (Bld) [Entitic vol] 10.3 fL 8.1 - 13.5 fL [place] Platelets (Bld) [#/Vol] 380 10*3/uL [place] RBC (Bld) [#/Vol] 4.11 10*6/uL 3.95 - 5.1 1 m/uL [place] WBC (Bld) [#/Vol] 0.0 10*3/uL 0.0 per 10 0 WBC [place] WBC (Bld) [#/Vol] 6.8 10*3/uL [place] Comprehensive Metabolic Pane riddhi 08-21-2020 Albumin [Mass/Vol] 4 g/dL 3.5 - 5.2 g/dL [place] Albumin/Globulin [Mass ratio] 1.2 {ratio} [place] ALP [Catalytic activity/Vol] 143 U/L High 35 - 104 U/L [place] ALT [Catalytic activity/Vol] 13 U/L 5 - 33 U/L [place] Anion gap [Moles/Vol] 14 mmol/L 9 - 17 mmol/L [place] AST [Catalytic activity/Vol] 14 U/L <32 [place] Bilirubin Ql (U) 0.18 mg/dL Low 0.3 - 1.2 mg/dL [place] Bun/Cre Ratio 38 High [place] Calcium [Mass/Vol] 10.0 mg/dL 8.6 - 10. 4 mg/dL [place] Chloride [Moles/Vol] 102 mmol/L 98 - 10 7 mmol/L [place] CO2 [Moles/Vol] 27 mmol/L 20 - 31 mmol/L [place] Creatinine [Mass/Vol] 1.57 mg/dL High 0.5 - 0.9 mg/dL [place] GFR 38 mL/min Low >60 [place] GFR Non- 31 mL/min Low >60 [place] Glucose [Mass/Vol] 123 mg/dL High 70 - 99 mg/dL [place] Interpretation and review of laboratory results Abnormal [place] Potassium [Moles/Vol] 3.8 mmol/L 3.7 - 5.3 mmol/L [place] Protein [Mass/Vol] 7.4 g/dL 6.4 - 8.3 g/dL [place] Sodium [Moles/Vol] 143 mmol/L 135 - 144 mmol/L [place] Urea nitrogen [Mass/Vol] 60 mg/dL High 8 - 23 mg/dL [place] Metabolic Panelon 08-21-2020 GFR/1.73 sq M predicted among non-blacks MDRD (S/P/Bld) [Vol rate/Area] [place] Comment on above: Average GFR for 70 o r more years old: 75 mL/min/1.73sq m Chronic Kidney Disease: <60 mL/min/1.73sq m Kidney failure: <15 mL/min/1.73sq m eGFR calculated using average adult body mass. Additional eGFR calculator available at: http://www.[facility]/multiple_crcl_2012.htm Stage 1: Some kidney damage normal GFR Stage 2: Mild kidney damage GFR 60-89 Stage 3: Moderate kidney damage GFR 30-59 Stage 4: Severe kidney damage GFR 15-29 Stage 5: Severe kidney damage GFR <15 ESRD - chronic treatment by dialysis or transplant Sedimentation Rateon Interpretation and review of laboratory results Abnormal [place] Sed Rate 38 mm High 0 - 20 mm [place] C-Reactive Proteinon CRP [Mass/Vol] 14.9 mg/L High 0 - 5 mg/L [place] Interpretation and review of laboratory results Abnormal [place] CBCon 08-16-2020 Erythrocyte distribution width (RBC) [Ratio] 13.9 % 11.8 - 14.4 % [place] Hematocrit (Bld) [Volume fraction] 40.8 % 36.3 - 47.1 % [place] Hemoglobin (Bld) [Mass/Vol] 12.2 g/dL 11.9 - 15.1 g/dL [place] MCH (RBC) [Entitic mass] 28.8 pg 25. 2 - 33.5 pg [place] MCHC (RBC) [Mass/Vol] 29.9 g/dL 28.4 - 34.8 g/dL [place] MCV (RBC) [Entitic vol] 96.5 fL 82.6 - 102.9 fL [place] Platelet mean volume (Bld) [Entitic vol] 9.7 fL 8.1 - 13.5 fL [place] Platelets (Bld) [#/Vol] 405 10*3/uL [place] RBC (Bld) [#/Vol] 4.23 10*6/uL 3.95 - 5.1 1 m/uL [place] WBC (Bld) [#/Vol] 0.0 10*3/uL 0.0 per 10 0 WBC [place] WBC (Bld) [#/Vol] 9.7 10*3/uL [place] Comprehensive Metabolic Pane riddhi 08-16-2020 Albumin [Mass/Vol] 3.9 g/dL 3.5 - 5.2 g/dL [place] Albumin/Globulin [Mass ratio] 1.3 {ratio} [place] ALP [Catalytic activity/Vol] 143 U/L High 35 - 104 U/L [place] ALT [Catalytic activity/Vol] 13 U/L 5 - 33 U/L [place] Anion gap [Moles/Vol] 14 mmol/L 9 - 17 mmol/L [place] AST [Catalytic activity/Vol] 17 U/L <32 [place] Bilirubin Ql (U) 0.26 mg/dL Low 0.3 - 1.2 mg/dL [place] Bun/Cre Ratio 40 High [place] Calcium [Mass/Vol] 9.4 mg/dL 8.6 - 10. 4 mg/dL [place] Chloride [Moles/Vol] 102 mmol/L 98 - 10 7 mmol/L [place] CO2 [Moles/Vol] 25 mmol/L 20 - 31 mmol/L [place] Creatinine [Mass/Vol] 1.24 mg/dL High 0.5 - 0.9 mg/dL [place] GFR 50 mL/min Low >60 [place] GFR Non- 41 mL/min Low >60 [place] Glucose [Mass/Vol] 104 mg/dL High 70 - 99 mg/dL [place] Interpretation and review of laboratory results Abnormal [place] Potassium [Moles/Vol] 4.2 mmol/L 3.7 - 5.3 mmol/L [place] Protein [Mass/Vol] 7.0 g/dL 6.4 - 8.3 g/dL [place] Sodium [Moles/Vol] 141 mmol/L 135 - 144 mmol/L [place] Urea nitrogen [Mass/Vol] 49 mg/dL High 8 - 23 mg/dL [place] Metabolic Panelon 08-16-2020 GFR/1.73 sq M predicted among non-blacks MDRD (S/P/Bld) [Vol rate/Area] [place] Comment on above: Average GFR for 70 o r more years old: 75 mL/min/1.73sq m Chronic Kidney Disease: <60 mL/min/1.73sq m Kidney failure: <15 mL/min/1.73sq m eGFR calculated using average adult body mass. Additional eGFR calculator available at: http://www.[facility]/multiple_crcl_2012.htm Stage 1: Some kidney damage normal GFR Stage 2: Mild kidney damage GFR 60-89 Stage 3: Moderate kidney damage GFR 30-59 Stage 4: Severe kidney damage GFR 15-29 Stage 5: Severe kidney damage GFR <15 ESRD - chronic treatment by dialysis or transplant Sedimentation Rateon 020 Interpretation and review of laboratory results Abnormal [place] Sed Rate 42 mm High 0 - 20 mm [place] CBCon 08-09-2020 Erythrocyte distribution width (RBC) [Ratio] 13.7 % 11.8 - 14.4 % [place] Hematocrit (Bld) [Volume fraction] 37.1 % 36.3 - 47.1 % [place] Hemoglobin (Bld) [Mass/Vol] 11.4 g/dL Low 11.9 - 15.1 g/dL [place] Interpretation and review of laboratory results Abnormal [place] MCH (RBC) [Entitic mass] 29.5 pg 25. 2 - 33.5 pg [place] MCHC (RBC) [Mass/Vol] 30.7 g/dL 28.4 - 34.8 g/dL [place] MCV (RBC) [Entitic vol] 96.1 fL 82.6 - 102.9 fL [place] Platelet mean volume (Bld) [Entitic vol] 10.0 fL 8.1 - 13.5 fL [place] Platelets (Bld) [#/Vol] 334 10*3/uL [place] RBC (Bld) [#/Vol] 3.86 10*6/uL Low 3.95 - 5.1 1 m/uL [place] WBC (Bld) [#/Vol] 10.0 10*3/uL [place] WBC (Bld) [#/Vol] 0.0 10*3/uL 0.0 per 10 0 WBC [place] Creatinine, Random Urineon 1 10-09-2019 Creatinine, Ur 25.9 mg/dL Low 28 - 217 mg/dL [place] Interpretation and review of laboratory results Abnormal [place] Ferritinon 08-09-2020 Ferritin [Mass/Vol] 179 ug/L High 13 - 150 ug/L [place] Iron and TIBCon 08-09-2020 Iron [Mass/Vol] 38 ug/dL 37 - 145 ug/dL [place] Iron Saturation 13 % Low 20 - 55 % [place] TIBC 291 ug/dL 250 - 450 ug/dL [place] UIBC 253 ug/dL 112 - 347 ug/dL [place] Magnesiumon 08-09-2020 Magnesium [Mass/Vol] 2.1 mg/dL 1.6 - 2 .6 mg/dL [place] Metabolic Panelon 08-09-2020 GFR/1.73 sq M predicted among non-blacks MDRD (S/P/Bld) [Vol rate/Area] [place] Comment on above: Average GFR for 70 o r more years old: 75 mL/min/1.73sq m Chronic Kidney Disease: <60 mL/min/1.73sq m Kidney failure: <15 mL/min/1.73sq m eGFR calculated using average adult body mass. Additional eGFR calculator available at: http://www.[facility]/multiple_crcl_2012.htm Stage 1: Some kidney damage normal GFR Stage 2: Mild kidney damage GFR 60-89 Stage 3: Moderate kidney damage GFR 30-59 Stage 4: Severe kidney damage GFR 15-29 Stage 5: Severe kidney damage GFR <15 ESRD - chronic treatment by dialysis or transplant Microscopic Urinalysison Amorphous, UA NOT REPORTED None [place] Bacteria, UA 1+ Abnormal None [place] Casts UA NOT REPORTED /LPF [place] Crystals, UA NOT REPORTED None /HPF [place] Epithelial Cells UA 5 TO 10 [place] Interpretation and review of laboratory results Abnormal [place] Mucus, UA NOT REPORTED None [place] Other Observations UA NOT REPORTED NOT REQ. M [place] RBC (U) [#/Vol] 2 TO 5 [place] Renal Epithelial, UA NOT REPORTED 0 /HPF [place] Trichomonas, UA NOT REPORTED None [place] WBC, UA 10 TO 20 [place] Yeast, UA NOT REPORTED None [place] Otheron 08-09-2020 Interpretation and review of laboratory results Abnormal [place] PTH, Intacton 08-09-2020 Pth Intact 40.39 pg/mL 15 - 65 pg/mL [place] Comment on above: SAMPLES FROM PATIENT S ROUTINELY RECEIVING HIGH DOSE BIOTIN THERAPY MAY SHOW FALSELY DEPRESSED RESULTS. ADDITIONAL INFORMATION MAY BE REQUIRED FOR DIAGNOSIS. Protein, urine, randomon Protein (U) [Mass/Vol] 10 mg/dL [place] Comment on above: No normal range esta blished. Renal Function Panelon 08-09 Albumin [Mass/Vol] 3.7 g/dL 3.5 - 5.2 g/dL [place] Anion gap [Moles/Vol] 14 mmol/L 9 - 17 mmol/L [place] Bun/Cre Ratio 38 High [place] Calcium [Mass/Vol] 9.2 mg/dL 8.6 - 10. 4 mg/dL [place] Chloride [Moles/Vol] 102 mmol/L 98 - 10 7 mmol/L [place] CO2 [Moles/Vol] 24 mmol/L 20 - 31 mmol/L [place] Creatinine [Mass/Vol] 1.07 mg/dL High 0.5 - 0.9 mg/dL [place] GFR 60 mL/min Low >60 [place] GFR Non- 49 mL/min Low >60 [place] Glucose [Mass/Vol] 111 mg/dL High 70 - 99 mg/dL [place] Interpretation and review of laboratory results Abnormal [place] Phosphate [Mass/Vol] 3.2 mg/dL 2.6 - 4 .5 mg/dL [place] Potassium [Moles/Vol] 3.9 mmol/L 3.7 - 5.3 mmol/L [place] Sodium [Moles/Vol] 140 mmol/L 135 - 144 mmol/L [place] Urea nitrogen [Mass/Vol] 41 mg/dL High 8 - 23 mg/dL [place] Uric Acidon 08-09-2020 Urate [Mass/Vol] 4.5 mg/dL 2.4 - 5.7 mg/dL [place] Urinalysis Reflex to Culture on 08-09-2020 Bilirubin Urine Negative NEGATIVE [place] Color, UA YELLOW YELLOW [place] Glucose, Ur Negative NEGATIVE [place] Interpretation and review of laboratory results Abnormal [place] Ketones Ql (U) Negative NEGATIVE [place] Leukocyte esterase Test strip Ql (U) LARGE Abnormal NEGATIVE [place] Nitrite, Urine Negative NEGATIVE [place] pH, UA 7.0 [place] Protein (U) [Mass/Vol] Negative NEGATIVE [place] Specific [place], UA 1.015 [place] Turbidity UA CLEAR CLEAR [place] Urinalysis Comments NOT REPORTED [place] Urine Hgb TRACE Abnormal NEGATIVE [place] Urobilinogen, Urine Normal Normal [place] CBCon 07-18-2020 Erythrocyte distribution width (RBC) [Ratio] 14.7 % High 11.8 - 14.4 % [place] Hematocrit (Bld) [Volume fraction] 34.6 % Low 36.3 - 47.1 % [place] Hemoglobin (Bld) [Mass/Vol] 10.3 g/dL Low 11.9 - 15.1 g/dL [place] Interpretation and review of laboratory results Abnormal [place] MCH (RBC) [Entitic mass] 30.1 pg 25. 2 - 33.5 pg [place] MCHC (RBC) [Mass/Vol] 29.8 g/dL 28.4 - 34.8 g/dL [place] MCV (RBC) [Entitic vol] 101.2 fL 82.6 - 102.9 fL [place] Platelet mean volume (Bld) [Entitic vol] 9.9 fL 8.1 - 13.5 fL [place] Platelets (Bld) [#/Vol] 328 10*3/uL [place] RBC (Bld) [#/Vol] 3.42 10*6/uL Low 3.95 - 5.1 1 m/uL [place] WBC (Bld) [#/Vol] 0.0 10*3/uL 0.0 per 10 0 WBC [place] WBC (Bld) [#/Vol] 7.5 10*3/uL [place] Creatinine, Random Urineon 1 Creatinine, Ur 97.1 mg/dL 28 - 217 mg/dL [place] Magnesiumon 07-18-2020 Magnesium [Mass/Vol] 2.2 mg/dL 1.6 - 2 .6 mg/dL [place] Metabolic Panelon 07-18-2020 GFR/1.73 sq M predicted among non-blacks MDRD (S/P/Bld) [Vol rate/Area] [place] Comment on above: Average GFR for 70 o r more years old: 75 mL/min/1.73sq m Chronic Kidney Disease: <60 mL/min/1.73sq m Kidney failure: <15 mL/min/1.73sq m eGFR calculated using average adult body mass. Additional eGFR calculator available at: http://www.[facility]/multiple_crcl_2012.htm Stage 1: Some kidney damage normal GFR Stage 2: Mild kidney damage GFR 60-89 Stage 3: Moderate kidney damage GFR 30-59 Stage 4: Severe kidney damage GFR 15-29 Stage 5: Severe kidney damage GFR <15 ESRD - chronic treatment by dialysis or transplant Microscopic Urinalysison Amorphous, UA NOT REPORTED None [place] Bacteria, UA NOT REPORTED None [place] Casts UA NOT REPORTED /LPF [place] Crystals, UA CALCIUM OXALATE Abnormal None /HPF [place] Crystals, UA 0 TO 2 Abnormal None /HPF [place] Epithelial Cells UA 2 TO 5 [place] Interpretation and review of laboratory results Abnormal [place] Mucus, UA NOT REPORTED None [place] Other Observations UA NOT REPORTED NOT REQ. [place] RBC (U) [#/Vol] 0 TO 2 [place] Renal Epithelial, UA NOT REPORTED 0 /HPF [place] Trichomonas, UA NOT REPORTED None [place] WBC, UA None [place] Yeast, UA NOT REPORTED None [place] PTH, Intacton 07-18-2020 Pth Intact 58.77 pg/mL 15 - 65 pg/mL [place] Comment on above: SAMPLES FROM PATIENT S ROUTINELY RECEIVING HIGH DOSE BIOTIN THERAPY MAY SHOW FALSELY DEPRESSED RESULTS. ADDITIONAL INFORMATION MAY BE REQUIRED FOR DIAGNOSIS. Protein, urine, randomon Protein (U) [Mass/Vol] 19 mg/dL [place] Comment on above: No normal range esta blished. Renal Function Panelon 07-18 Albumin [Mass/Vol] 3.3 g/dL Low 3.5 - 5.2 g/dL [place] Anion gap [Moles/Vol] 16 mmol/L 9 - 17 mmol/L [place] Bun/Cre Ratio 27 High [place] Calcium [Mass/Vol] 8.6 mg/dL 8.6 - 10. 4 mg/dL [place] Chloride [Moles/Vol] 102 mmol/L 98 - 10 7 mmol/L [place] CO2 [Moles/Vol] 25 mmol/L 20 - 31 mmol/L [place] Creatinine [Mass/Vol] 1.17 mg/dL High 0.5 - 0.9 mg/dL [place] GFR 54 mL/min Low >60 [place] GFR Non- 44 mL/min Low >60 [place] Glucose [Mass/Vol] 97 mg/dL 70 - 99 mg/dL [place] Interpretation and review of laboratory results Abnormal [place] Phosphate [Mass/Vol] 4.3 mg/dL 2.6 - 4 .5 mg/dL [place] Potassium [Moles/Vol] 3.9 mmol/L 3.7 - 5.3 mmol/L [place] Sodium [Moles/Vol] 143 mmol/L 135 - 144 mmol/L [place] Urea nitrogen [Mass/Vol] 32 mg/dL High 8 - 23 mg/dL [place] Uric Acidon 07-18-2020 Urate [Mass/Vol] 5.1 mg/dL 2.4 - 5.7 mg/dL [place] Urinalysis Reflex to Culture on 07-18-2020 Bilirubin Urine Negative NEGATIVE [place] Color, UA YELLOW YELLOW [place] Glucose, Ur Negative NEGATIVE [place] Interpretation and review of laboratory results Abnormal [place] Ketones Ql (U) Negative NEGATIVE [place] Leukocyte esterase Test strip Ql (U) Negative NEGATIVE [place] Nitrite, Urine Negative NEGATIVE [place] pH, UA 5.5 [place] Protein (U) [Mass/Vol] Negative NEGATIVE [place] Specific [place], UA 1.025 High [place] Turbidity UA CLEAR CLEAR [place] Urinalysis Comments NOT REPORTED [place] Urine Hgb Negative NEGATIVE [place] Urobilinogen, Urine Normal Normal [place] Basic Metabolic Panelon 06-27 Anion gap [Moles/Vol] 12 mmol/L 9 - 17 mmol/L [place] Bun/Cre Ratio 35 High [place] Calcium [Mass/Vol] 8.7 mg/dL 8.6 - 10. 4 mg/dL [place] Chloride [Moles/Vol] 105 mmol/L 98 - 10 7 mmol/L [place] CO2 [Moles/Vol] 24 mmol/L 20 - 31 mmol/L [place] Creatinine [Mass/Vol] 1.02 mg/dL High 0.5 - 0.9 mg/dL [place] GFR >60 >60 mL/min [place] GFR Non- 52 mL/min Low >60 [place] Glucose [Mass/Vol] 98 mg/dL 70 - 99 mg/dL [place] Interpretation and review of laboratory results Abnormal [place] Potassium [Moles/Vol] 4.0 mmol/L 3.7 - 5.3 mmol/L [place] Sodium [Moles/Vol] 141 mmol/L 135 - 144 mmol/L [place] Urea nitrogen [Mass/Vol] 36 mg/dL High 8 - 23 mg/dL [place] Metabolic Panelon 07-09-2020 GFR/1.73 sq M predicted among non-blacks MDRD (S/P/Bld) [Vol rate/Area] [place], [place] Comment on above: Stage 1: Some [...] body mass. Additional eGFR calculator available at: http://[email or web address]_[email or web address] Basic Metabolic Panelon Anion gap [Moles/Vol] 11 mmol/L 9 - 17 mmol/L [place] Bun/Cre Ratio 36 [place] Calcium [Mass/Vol] 9.0 mg/dL 8.6 - 10. 4 mg/dL [place] Chloride [Moles/Vol] 104 mmol/L 98 - 10 7 mmol/L [place] CO2 [Moles/Vol] 23 mmol/L 20 - 31 mmol/L [place] Creatinine [Mass/Vol] 1.59 mg/dL High 0.5 - 0.9 mg/dL [place] GFR 38 mL/min Low >60 [place] GFR Non- 31 mL/min Low >60 [place] Glucose [Mass/Vol] 82 mg/dL 70 - 99 mg/dL [place] Interpretation and review of laboratory results Abnormal [place] Potassium [Moles/Vol] 4.1 mmol/L 3.7 - 5.3 mmol/L [place] Sodium [Moles/Vol] 138 mmol/L 135 - 144 mmol/L [place] Urea nitrogen [Mass/Vol] 58 mg/dL High 8 - 23 mg/dL [place] Metabolic Panelon 07-01-2020 GFR/1.73 sq M predicted among non-blacks MDRD (S/P/Bld) [Vol rate/Area] [place] Comment on above: Stage 1: Some [...] body mass. Additional eGFR calculator available at: http://[email or web address]_crcl_[email or web address] Basic Metabolic Panelon 05-29 Anion gap [Moles/Vol] 12 mmol/L 9 - 17 mmol/L [place] Bun/Cre Ratio 36 [place] Calcium [Mass/Vol] 8.9 mg/dL 8.6 - 10. 4 mg/dL [place] Chloride [Moles/Vol] 101 mmol/L 98 - 10 7 mmol/L [place] CO2 [Moles/Vol] 23 mmol/L 20 - 31 mmol/L [place] Creatinine [Mass/Vol] 1.34 mg/dL High 0.5 - 0.9 mg/dL [place] GFR 46 mL/min Low >60 [place] GFR Non- 38 mL/min Low >60 [place] Glucose [Mass/Vol] 112 mg/dL High 70 - 99 mg/dL [place] Interpretation and review of laboratory results Abnormal [place] Potassium [Moles/Vol] 4.5 mmol/L 3.7 - 5.3 mmol/L [place] Sodium [Moles/Vol] 136 mmol/L 135 - 144 mmol/L [place] Urea nitrogen [Mass/Vol] 48 mg/dL High 8 - 23 mg/dL [place] Infectious Disease Office/Cl inic Noteon 06-25-2020 [...] Manuel Ibarra MD 06/25/20 09:51 EDT Normal [facility] Metabolic Panelon 06-25-2020 GFR/1.73 sq M predicted among non-blacks MDRD (S/P/Bld) [Vol rate/Area] [facility]- [place], [place] Comment on above: Stage 1: Some kidney [...] body mass. Additional eGFR calculator available at: http://www.[employer]/multiple_crcl_2012.htm Provider Letteron 06-25-2020 Provider Letter Justino Dhaliwal DO [address] [place] [address] Re: Jesús Ovidio Date of Visit: 06/25/[address] Dhaliwal, Thank you for your referral to my office. Attached you will find the most recent office visit note. Please call if you have any questions or concerns. Sincerely, Manuel Ibarra MD [address] [place] [address], [address] [place] [address] The following document(s) were included in the letter: June 25, 2020 09:49:14 EDT - (06/25/2020) Telehealth Office Visit Note Normal [facility] Lipid Panelon 06-19-2020 Cholesterol [Mass/Vol] 151 mg/dL <200 [place], [place] Comment on above: Cholesterol Guidelines: <200 Desirable 200-240 Borderline >240 Undesirable Cholesterol in HDL [Mass/Vol] 58 mg/dL >40 [place] Comment on above: HDL Guidelines: <40 Undesirable 40-59 Borderline >59 Desirable Cholesterol in LDL [Mass/Vol] 72 mg/dL 0 - 130 mg/dL [place] Comment on above: LDL Guidelines: <100 Desirable 100-129 Near to/above Desirable 130-159 Borderline >159 Undesirable Direct (measured) LDL and calculated LDL are not interchangeable tests. Cholesterol in VLDL [Mass/Vol] NOT REPORTED 1 - 30 mg/dL [place] Cholesterol.total/Choles terol in HDL [Mass ratio] 2.6 {ratio} <5 [place] Triglyceride [Mass/Vol] 107 mg/dL <150 [place] Comment on above: Triglyceride Guidelines: <150 Desirable 150-199 Borderline 200-499 High >499 Very high Based on AHA Guidelines for fasting triglyceride, June 2012. C-Reactive Proteinon 020 CRP [Mass/Vol] 3.9 mg/L 0 - 5 mg/L [place] CBCon 06-12-2020 Erythrocyte distribution width (RBC) [Ratio] 17.4 % High 11.8 - 14.4 % [place] Hematocrit (Bld) [Volume fraction] 31.3 % Low 36.3 - 47.1 % [place] Hemoglobin (Bld) [Mass/Vol] 9.3 g/dL Low 11.9 - 15.1 g/dL [place] Interpretation and review of laboratory results Abnormal [place] MCH (RBC) [Entitic mass] 30.1 pg 25. 2 - 33.5 pg [place] MCHC (RBC) [Mass/Vol] 29.7 g/dL 28.4 - 34.8 g/dL [place] MCV (RBC) [Entitic vol] 101.3 fL 82.6 - 102.9 fL [place] Platelet mean volume (Bld) [Entitic vol] 9.5 fL 8.1 - 13.5 fL [place] Platelets (Bld) [#/Vol] 382 10*3/uL [place] RBC (Bld) [#/Vol] 3.09 10*6/uL Low 3.95 - 5.1 1 m/uL [place] WBC (Bld) [#/Vol] 0.0 10*3/uL 0.0 per 10 0 WBC [place] WBC (Bld) [#/Vol] 7.3 10*3/uL [place] Comprehensive Metabolic Pane riddhi 06-12-2020 Albumin [Mass/Vol] 2.9 g/dL Low 3.5 - 5.2 g/dL [place] Albumin/Globulin [Mass ratio] 1.1 {ratio} [place] ALP [Catalytic activity/Vol] 155 U/L High 35 - 104 U/L [place] ALT [Catalytic activity/Vol] 25 U/L 5 - 33 U/L [place] Anion gap [Moles/Vol] 10 mmol/L 9 - 17 mmol/L [place] AST [Catalytic activity/Vol] 22 U/L <32 [place] Bilirubin Ql (U) 0.24 mg/dL Low 0.3 - 1.2 mg/dL [place] Bun/Cre Ratio 23 High [place] Calcium [Mass/Vol] 8.6 mg/dL 8.6 - 10. 4 mg/dL [place] Chloride [Moles/Vol] 102 mmol/L 98 - 10 7 mmol/L [place] CO2 [Moles/Vol] 26 mmol/L 20 - 31 mmol/L [place] Creatinine [Mass/Vol] 1.03 mg/dL High 0.5 - 0.9 mg/dL [place] GFR >60 >60 mL/min [place] GFR Non- 51 mL/min Low >60 [place] Glucose [Mass/Vol] 110 mg/dL High 70 - 99 mg/dL [place] Interpretation and review of laboratory results Abnormal [place] Potassium [Moles/Vol] 4.1 mmol/L 3.7 - 5.3 mmol/L [place] Protein [Mass/Vol] 5.5 g/dL Low 6.4 - 8.3 g/dL [place] Sodium [Moles/Vol] 138 mmol/L 135 - 144 mmol/L [place] Urea nitrogen [Mass/Vol] 24 mg/dL High 8 - 23 mg/dL [place] Infectious Disease Office/ inic Noteon 06-12-2020 Infectious Disease Office/Clinic Note [...] system negative. [facility]am [facility]als [facility] the [facility] been okay. She appears to be [...] Continue to follow-up with Dr. Yousif in [place] wound clinic. Problem List/Past Medical History Ongoing [...] Use:. Family History Cancer: Sibling. Lab Results [place] studies of June 06 showed a white [...] Manuel Ibarra MD 06/12/20 14:48 EDT Normal [facility] Metabolic Panelon 06-12-2020 GFR/1.73 sq M predicted among non-blacks MDRD (S/P/Bld) [Vol rate/Area] [facility]- [place] Comment on above: Average GFR for 70 o r more years old: 75 mL/min/1.73sq m Chronic Kidney Disease: <60 mL/min/1.73sq m Kidney failure: <15 mL/min/1.73sq m eGFR calculated using average adult body mass. Additional eGFR calculator available at: http://www.[employer]/multiple_crcl_2012.htm Stage 1: Some kidney damage normal GFR Stage 2: Mild kidney damage GFR 60-89 Stage 3: Moderate kidney damage GFR 30-59 Stage 4: Severe kidney damage GFR 15-29 Stage 5: Severe kidney damage GFR <15 ESRD - chronic treatment by dialysis or transplant Sedimentation Rateon 020 Interpretation and review of laboratory results Abnormal [place] Sed Rate 54 mm High 0 - 20 mm [place] C-Reactive Proteinon CRP [Mass/Vol] 6.5 mg/L High 0 - 5 mg/L [place] Interpretation and review of laboratory results Abnormal [place] CBCon 06-06-2020 Erythrocyte distribution width (RBC) [Ratio] 17.4 % High 11.8 - 14.4 % [place] Hematocrit (Bld) [Volume fraction] 30.6 % Low 36.3 - 47.1 % [place] Hemoglobin (Bld) [Mass/Vol] 9.0 g/dL Low 11.9 - 15.1 g/dL [place] Interpretation and review of laboratory results Abnormal [place] MCH (RBC) [Entitic mass] 30.2 pg 25. 2 - 33.5 pg [place] MCHC (RBC) [Mass/Vol] 29.4 g/dL 28.4 - 34.8 g/dL [place] MCV (RBC) [Entitic vol] 102.7 fL 82.6 - 102.9 fL [place] Platelet mean volume (Bld) [Entitic vol] 9.4 fL 8.1 - 13.5 fL [place] Platelets (Bld) [#/Vol] 356 10*3/uL [place] RBC (Bld) [#/Vol] 2.98 10*6/uL Low 3.95 - 5.1 1 m/uL [place] WBC (Bld) [#/Vol] 8.0 10*3/uL [place] WBC (Bld) [#/Vol] 0.0 10*3/uL 0.0 per 10 0 WBC [place] Comprehensive Metabolic Pane riddhi 06-06-2020 Albumin [Mass/Vol] 2.9 g/dL Low 3.5 - 5.2 g/dL [place] Albumin/Globulin [Mass ratio] 1.2 {ratio} [place] ALP [Catalytic activity/Vol] 170 U/L High 35 - 104 U/L [place] ALT [Catalytic activity/Vol] 13 U/L 5 - 33 U/L [place] Anion gap [Moles/Vol] 11 mmol/L 9 - 17 mmol/L [place] AST [Catalytic activity/Vol] 18 U/L <32 [place] Bilirubin Ql (U) 0.28 mg/dL Low 0.3 - 1.2 mg/dL [place] Bun/Cre Ratio 23 High [place] Calcium [Mass/Vol] 8.5 mg/dL Low 8.6 - 10. 4 mg/dL [place] Chloride [Moles/Vol] 106 mmol/L 98 - 10 7 mmol/L [place] CO2 [Moles/Vol] 23 mmol/L 20 - 31 mmol/L [place] Creatinine [Mass/Vol] 1.01 mg/dL High 0.5 - 0.9 mg/dL [place] GFR >60 >60 mL/min [place] GFR Non- 52 mL/min Low >60 [place] Glucose [Mass/Vol] 109 mg/dL High 70 - 99 mg/dL [place] Interpretation and review of laboratory results Abnormal [place] Potassium [Moles/Vol] 3.9 mmol/L 3.7 - 5.3 mmol/L [place] Protein [Mass/Vol] 5.4 g/dL Low 6.4 - 8.3 g/dL [place] Sodium [Moles/Vol] 140 mmol/L 135 - 144 mmol/L [place] Urea nitrogen [Mass/Vol] 23 mg/dL 8 - 23 mg/dL [place] Metabolic Panelon 06-06-2020 GFR/1.73 sq M predicted among non-blacks MDRD (S/P/Bld) [Vol rate/Area] [place] Comment on above: Average GFR for 70 o r more years old: 75 mL/min/1.73sq m Chronic Kidney Disease: <60 mL/min/1.73sq m Kidney failure: <15 mL/min/1.73sq m eGFR calculated using average adult body mass. Additional eGFR calculator available at: http://www.[employer]/multiple_crcl_2012.htm Stage 1: Some kidney damage normal GFR Stage 2: Mild kidney damage GFR 60-89 Stage 3: Moderate kidney damage GFR 30-59 Stage 4: Severe kidney damage GFR 15-29 Stage 5: Severe kidney damage GFR <15 ESRD - chronic treatment by dialysis or transplant Sedimentation Rateon 020 Interpretation and review of laboratory results Abnormal [place] Sed Rate 58 mm High 0 - 20 mm [place] C-Reactive Proteinon 020 CRP [Mass/Vol] 7.6 mg/L High 0 - 5 mg/L [place] Interpretation and review of laboratory results Abnormal [place] CBC Auto Differentialon Basophils (Bld) [#/Vol] 0.00 10*3/uL [place] Basophils/100 WBC (Bld) 0 % 0 - 2 % [place] Differential Type NOT REPORTED [place] Eosinophils (Bld) [#/Vol] 0.43 10*3/uL [place] Eosinophils/100 WBC (Bld) 8 % High 1 - 4 % [place] Erythrocyte distribution width (RBC) [Ratio] 17.0 % High 11.8 - 14.4 % [place] Hematocrit (Bld) [Volume fraction] 32.6 % Low 36.3 - 47.1 % [place] Hemoglobin (Bld) [Mass/Vol] 9.4 g/dL Low 11.9 - 15.1 g/dL [place] Immature granulocytes (Bld) [#/Vol] 1 % High 0 [place] Immature granulocytes (Bld) [#/Vol] 0.05 10*3/uL [place] Interpretation and review of laboratory results Abnormal [place] Lymphocytes (Bld) [#/Vol] 2.11 10*3/uL [place] Lymphocytes/100 WBC (Bld) 39 % 24 - 43 % [place] MCH (RBC) [Entitic mass] 29.5 pg 25. 2 - 33.5 pg [place] MCHC (RBC) [Mass/Vol] 28.8 g/dL 28.4 - 34.8 g/dL [place] MCV (RBC) [Entitic vol] 102.2 fL 82.6 - 102.9 fL [place] Monocytes (Bld) [#/Vol] 0.59 10*3/uL [place] Monocytes/100 WBC (Bld) 11 % 3 - 12 % [place] Morphology [place] (Bld) [Interp] HYPOCHROMASIA PRESENT [place] Platelet mean volume (Bld) [Entitic vol] 9.3 fL 8.1 - 13.5 fL [place] Platelets (Bld) [#/Vol] 398 10*3/uL [place] Platelets (Bld) [#/Vol] NOT REPORTED [place] RBC (Bld) [#/Vol] 3.19 10*6/uL Low 3.95 - 5.1 1 m/uL [place] RBC morphology finding Nom (Bld) NOT REPORTED [place] Segmented neutrophils/100 WBC (Bld) 41 % 36 - 65 % [place] Segs Absolute 2.22 [place] WBC (Bld) [#/Vol] 5.4 10*3/uL [place] WBC (Bld) [#/Vol] 0.0 10*3/uL 0.0 per 10 0 WBC [place] WBC Morphology NOT REPORTED [place] Comprehensive Metabolic Pane riddhi 05-30-2020 Albumin [Mass/Vol] 2.8 g/dL Low 3.5 - 5.2 g/dL [place] Albumin/Globulin [Mass ratio] 1.0 {ratio} [place] ALP [Catalytic activity/Vol] 147 U/L High 35 - 104 U/L [place] ALT [Catalytic activity/Vol] 7 U/L 5 - 33 U/L [place] Anion gap [Moles/Vol] 10 mmol/L 9 - 17 mmol/L [place] AST [Catalytic activity/Vol] 13 U/L <32 [place] Bilirubin Ql (U) 0.23 mg/dL Low 0.3 - 1.2 mg/dL [place] Bun/Cre Ratio 16 [place] Calcium [Mass/Vol] 8.5 mg/dL Low 8.6 - 10. 4 mg/dL [place] Chloride [Moles/Vol] 104 mmol/L 98 - 10 7 mmol/L [place] CO2 [Moles/Vol] 23 mmol/L 20 - 31 mmol/L [place] Creatinine [Mass/Vol] 1.3 mg/dL High 0.5 - 0.9 mg/dL [place] GFR 48 mL/min Low >60 [place] GFR Non- 39 mL/min Low >60 [place] Glucose [Mass/Vol] 101 mg/dL High 70 - 99 mg/dL [place] Interpretation and review of laboratory results Abnormal [place] Potassium [Moles/Vol] 4.1 mmol/L 3.7 - 5.3 mmol/L [place] Protein [Mass/Vol] 5.6 g/dL Low 6.4 - 8.3 g/dL [place] Sodium [Moles/Vol] 137 mmol/L 135 - 144 mmol/L [place] Urea nitrogen [Mass/Vol] 21 mg/dL 8 - 23 mg/dL [place] Metabolic Panelon 05-30-2020 GFR/1.73 sq M predicted among non-blacks MDRD (S/P/Bld) [Vol rate/Area] [place] Comment on above: Stage 1: Some [...] body mass. Additional eGFR calculator available at: http://www.[employer]/multiple_crcl_2012.htm Sedimentation Rateon 020 Interpretation and review of laboratory results Abnormal [place] Sed Rate 44 mm High 0 - 20 mm [place] Infectious Disease Office/Cl inic Noteon 05-29-2020 [...] lower leg Consult with wound clinic in [place]. 3. Chronic kidney disease Continue to monitor [...] Electronically signed by Frannie KUMAR, Manuel Brody 05/29/20 14:48 EDT Normal [facility] C-Reactive Proteinon 020 CRP [Mass/Vol] 52.4 mg/L High 0 - 5 mg/L [place] Interpretation and review of laboratory results Abnormal [place] CBC Auto Differentialon 04-28 Basophils (Bld) [#/Vol] 0.03 10*3/uL [place] Basophils/100 WBC (Bld) 0 % 0 - 2 % [place] Differential Type NOT REPORTED [place] Eosinophils (Bld) [#/Vol] 0.27 10*3/uL [place] Eosinophils/100 WBC (Bld) 3 % 1 - 4 % [place] Erythrocyte distribution width (RBC) [Ratio] 16.5 % High 11.8 - 14.4 % [place] Hematocrit (Bld) [Volume fraction] 27.8 % Low 36.3 - 47.1 % [place] Hemoglobin (Bld) [Mass/Vol] 8.5 g/dL Low 11.9 - 15.1 g/dL [place] Immature granulocytes (Bld) [#/Vol] 0.09 10*3/uL [place] Immature granulocytes (Bld) [#/Vol] 1 % High 0 [place] Interpretation and review of laboratory results Abnormal [place] Lymphocytes (Bld) [#/Vol] 1.64 10*3/uL [place] Lymphocytes/100 WBC (Bld) 16 % Low 24 - 43 % [place] MCH (RBC) [Entitic mass] 30.1 pg 25. 2 - 33.5 pg [place] MCHC (RBC) [Mass/Vol] 30.6 g/dL 28.4 - 34.8 g/dL [place] MCV (RBC) [Entitic vol] 98.6 fL 82.6 - 102.9 fL [place] Monocytes (Bld) [#/Vol] 1.02 10*3/uL [place] Monocytes/100 WBC (Bld) 10 % 3 - 12 % [place] Platelet mean volume (Bld) [Entitic vol] 9.2 fL 8.1 - 13.5 fL [place] Platelets (Bld) [#/Vol] NOT REPORTED [place] Platelets (Bld) [#/Vol] 516 10*3/uL [place] RBC (Bld) [#/Vol] 2.82 10*6/uL Low 3.95 - 5.1 1 m/uL [place] RBC morphology finding Nom (Bld) NOT REPORTED [place] Segmented neutrophils/100 WBC (Bld) 70 % High 36 - 65 % [place] Segs Absolute 7.00 [place] WBC (Bld) [#/Vol] 0.0 10*3/uL 0.0 per 10 0 WBC [place] WBC (Bld) [#/Vol] 10.1 10*3/uL [place] WBC Morphology NOT REPORTED [place] Comprehensive Metabolic Pane riddhi 05-23-2020 Albumin [Mass/Vol] 3 g/dL Low 3.5 - 5.2 g/dL [place] Albumin/Globulin [Mass ratio] 1.1 {ratio} [place] ALP [Catalytic activity/Vol] 152 U/L High 35 - 104 U/L [place] ALT [Catalytic activity/Vol] 11 U/L 5 - 33 U/L [place] Anion gap [Moles/Vol] 12 mmol/L 9 - 17 mmol/L [place] AST [Catalytic activity/Vol] 27 U/L <32 [place] Bilirubin Ql (U) 0.37 mg/dL 0.3 - 1.2 mg/dL [place] Bun/Cre Ratio 10 [place] Calcium [Mass/Vol] 8.4 mg/dL Low 8.6 - 10. 4 mg/dL [place] Chloride [Moles/Vol] 103 mmol/L 98 - 10 7 mmol/L [place] CO2 [Moles/Vol] 23 mmol/L 20 - 31 mmol/L [place] Creatinine [Mass/Vol] 1.53 mg/dL High 0.5 - 0.9 mg/dL [place] GFR 39 mL/min Low >60 [place] GFR Non- 32 mL/min Low >60 [place] Glucose [Mass/Vol] 87 mg/dL 70 - 99 mg/dL [place] Interpretation and review of laboratory results Abnormal [place] Potassium [Moles/Vol] 3.7 mmol/L 3.7 - 5.3 mmol/L [place] Protein [Mass/Vol] 5.7 g/dL Low 6.4 - 8.3 g/dL [place] Sodium [Moles/Vol] 138 mmol/L 135 - 144 mmol/L [place] Urea nitrogen [Mass/Vol] 16 mg/dL 8 - 23 mg/dL [place] Metabolic Panelon 05-23-2020 GFR/1.73 sq M predicted among non-blacks MDRD (S/P/Bld) [Vol rate/Area] [place] Comment on above: Average GFR for 70 o r more years old: 75 mL/min/1.73sq m Chronic Kidney Disease: <60 mL/min/1.73sq m Kidney failure: <15 mL/min/1.73sq m eGFR calculated using average adult body mass. Additional eGFR calculator available at: http://www.[employer]/multiple_crcl_2012.htm Stage 1: Some kidney damage normal GFR Stage 2: Mild kidney damage GFR 60-89 Stage 3: Moderate kidney damage GFR 30-59 Stage 4: Severe kidney damage GFR 15-29 Stage 5: Severe kidney damage GFR <15 ESRD - chronic treatment by dialysis or transplant Sedimentation Rateon 020 Interpretation and review of laboratory results Abnormal [place] Sed Rate 70 mm High 0 - 20 mm [place] Infectious Disease Office/Cl inic Noteon 05-22-2020 [...] on February 08. She was [facility] prison on February 14. She made progress and was discharged home the . However within 3 days on the she was readmitted to prison. X-rays were done in follow-up and there [...] Electronically signed by Frannie KUMAR, Manuel Brody 05/22/20 17:13 EDT Normal [facility] CBC Auto Differentialon 04-28 Basophils (Bld) [#/Vol] 10*3/uL [place] Basophils/100 WBC (Bld) 0 % 0 - 2 % [place] Differential Type NOT REPORTED [place] Eosinophils (Bld) [#/Vol] 0.26 10*3/uL [place] Eosinophils/100 WBC (Bld) 3 % 1 - 4 % [place] Erythrocyte distribution width (RBC) [Ratio] 15.0 % High 11.8 - 14.4 % [place] Hematocrit (Bld) [Volume fraction] 27.8 % Low 36.3 - 47.1 % [place] Hemoglobin (Bld) [Mass/Vol] 8.4 g/dL Low 11.9 - 15.1 g/dL [place] Immature granulocytes (Bld) [#/Vol] 0.11 10*3/uL [place] Immature granulocytes (Bld) [#/Vol] 1 % High 0 [place] Interpretation and review of laboratory results Abnormal [place] Lymphocytes (Bld) [#/Vol] 1.84 10*3/uL [place] Lymphocytes/100 WBC (Bld) 19 % Low 24 - 43 % [place] MCH (RBC) [Entitic mass] 29.6 pg 25. 2 - 33.5 pg [place] MCHC (RBC) [Mass/Vol] 30.2 g/dL 28.4 - 34.8 g/dL [place] MCV (RBC) [Entitic vol] 97.9 fL 82.6 - 102.9 fL [place] Monocytes (Bld) [#/Vol] 1.08 10*3/uL [place] Monocytes/100 WBC (Bld) 11 % 3 - 12 % [place] Platelet mean volume (Bld) [Entitic vol] 9.4 fL 8.1 - 13.5 fL [place] Platelets (Bld) [#/Vol] NOT REPORTED [place] Platelets (Bld) [#/Vol] 431 10*3/uL [place] RBC (Bld) [#/Vol] 2.84 10*6/uL Low 3.95 - 5.1 1 m/uL [place] RBC morphology finding Nom (Bld) NOT REPORTED [place] Segmented neutrophils/100 WBC (Bld) 66 % High 36 - 65 % [place] Segs Absolute 6.43 [place] WBC (Bld) [#/Vol] 0.0 10*3/uL 0.0 per 10 0 WBC [place] WBC (Bld) [#/Vol] 9.7 10*3/uL [place] WBC Morphology NOT REPORTED [place] Comprehensive Metabolic Pane riddhi 05-17-2020 Albumin [Mass/Vol] 2.2 g/dL Low 3.5 - 5.2 g/dL [place] Albumin/Globulin [Mass ratio] 0.7 {ratio} Low [place] ALP [Catalytic activity/Vol] 102 U/L 35 - 104 U/L [place] ALT [Catalytic activity/Vol] 7 U/L 5 - 33 U/L [place] Anion gap [Moles/Vol] 8 mmol/L Low 9 - 17 mmol/L [place] AST [Catalytic activity/Vol] 14 U/L <32 [place] Bilirubin Ql (U) 0.27 mg/dL Low 0.3 - 1.2 mg/dL [place] Bun/Cre Ratio 17 [place] Calcium [Mass/Vol] 8.4 mg/dL Low 8.6 - 10. 4 mg/dL [place] Chloride [Moles/Vol] 100 mmol/L 98 - 10 7 mmol/L [place] CO2 [Moles/Vol] 26 mmol/L 20 - 31 mmol/L [place] Creatinine [Mass/Vol] 1.01 mg/dL High 0.5 - 0.9 mg/dL [place] GFR >60 >60 mL/min [place] GFR Non- 52 mL/min Low >60 [place] Glucose [Mass/Vol] 124 mg/dL High 70 - 99 mg/dL [place] Interpretation and review of laboratory results Abnormal [place] Potassium [Moles/Vol] 4.1 mmol/L 3.7 - 5.3 mmol/L [place] Protein [Mass/Vol] 5.2 g/dL Low 6.4 - 8.3 g/dL [place] Sodium [Moles/Vol] 134 mmol/L Low 135 - 144 mmol/L [place] Urea nitrogen [Mass/Vol] 17 mg/dL 8 - 23 mg/dL [place] Metabolic Panelon 05-17-2020 GFR/1.73 sq M predicted among non-blacks MDRD (S/P/Bld) [Vol rate/Area] [place] Comment on above: Stage 1: Some [...] body mass. Additional eGFR calculator available at: http://www.[employer]/multiple_crcl_2012.htm HGB,HCTon 05-15-2020 Hematocrit (Bld) [Volume fraction] 26.2 % Low 37.0-47.0 [facility] Comment on above: Performed By: #### C BCWD, BMP, ANION, EGFR1 #### [facility] [address] [place] [address] Hemoglobin (Bld) [Mass/Vol] 8.3 gm/dl Low 12.0-16.0 [facility] Comment on above: Performed By: #### C BCWD, BMP, ANION, EGFR1 #### [facility] [address] [place] [address] Hemoglobin and hematocrit, b loodon 05-15-2020 Hematocrit (Bld) [Volume fraction] 26.2 % Low 37 - 47 % [place] Comment on above: Performed at [email or web address] [address] [place] [id number] Hemoglobin (Bld) [Mass/Vol] 8.3 g/dL Low [place] Interpretation and review of laboratory results Abnormal [place] ANION GAPon 05-14-2020 Anion gap [Moles/Vol] 9.0 mmol/L Normal 8.0-16.0 [facility] Comment on above: Result Comment: ANIO N GAP = Sodium -(Chloride + CO2) Performed By: #### C BCWD, BMP, ANION, EGFR1 #### [facility] [address] [place] [address] Anion Gapon 05-14-2020 Anion gap [Moles/Vol] 9.0 mmol/L 8 - 16 meq/L [place] Comment on above: ANION GAP = Sodium - (Chloride + CO2) Performed at [facility] [address] [place] [address] BASIC METABOL PANELon 2019 Calcium [Mass/Vol] 7.6 mg/dL Low 8.5-10.5 [facility] Comment on above: Performed By: #### C BCWD, BMP, ANION, EGFR1 #### [facility] [address] [place] [address] Chloride [Moles/Vol] 105 mmol/L Normal 98-111 [facility] Comment on above: Performed By: #### C BCWD, BMP, ANION, EGFR1 #### [email or web address] [address] [place] [address] CO2 [Moles/Vol] 24 mmol/L Normal 23-33 [facility] Comment on above: Performed By: #### C BCWD, BMP, ANION, EGFR1 #### [email or web address] [address] [place] [address] Creatinine [Mass/Vol] 1.1 mg/dL Normal 0.4-1.2 [facility] Comment on above: Performed By: #### C BCWD, BMP, ANION, EGFR1 #### [email or web address] [address] [place] [address] Glucose [Mass/Vol] 104 mg/dL Normal 70-108 [facility] Comment on above: Performed By: #### C BCWD, BMP, ANION, EGFR1 #### [email or web address] [address] [place] [address] Potassium [Moles/Vol] 4.0 mmol/L Normal 3.5-5.2 [facility] Comment on above: Performed By: #### C BCWD, BMP, ANION, EGFR1 #### [email or web address] [address] [place] [address] Sodium [Moles/Vol] 138 mmol/L Normal 135-145 [facility] Comment on above: Performed By: #### C BCWD, BMP, ANION, EGFR1 #### [email or web address] [address] [place] [address] Urea nitrogen [Mass/Vol] 18 mg/dL Normal 7-22 [facility] Comment on above: Performed By: #### C BCWD, BMP, ANION, EGFR1 #### [email or web address] [address] [place] [address] Basic Metabolic Panelon 04-27 Calcium [Mass/Vol] 7.6 mg/dL Low 8.5 - 10. 5 mg/dL [place], [place] Comment on above: Performed at [facility] [address] [place] [address] Chloride [Moles/Vol] 105 mmol/L 98 - 11 1 meq/L [place], [place] CO2 [Moles/Vol] 24 mmol/L 23 - 33 meq/L [place] Creatinine [Mass/Vol] 1.1 mg/dL 0.4 - 1.2 mg/dL [place] Glucose [Mass/Vol] 104 mg/dL 70 - 108 mg/dL [place] Potassium [Moles/Vol] 4.0 mmol/L 3.5 - 5.2 meq/L [place] Sodium [Moles/Vol] 138 mmol/L 135 - 145 meq/[place] Urea nitrogen [Mass/Vol] 18 mg/dL 7 - 22 mg/dL [place] CBC Auto Differentialon 04-27 Basophils (Bld) [#/Vol] 0.0 10*3/uL [place] Basophils/100 WBC (Bld) 0.2 % [place] Eosinophils (Bld) [#/Vol] 0.2 10*3/uL [place] Eosinophils/100 WBC (Bld) 2 % [place] Erythrocyte distribution width (RBC) [Ratio] 15.2 % High 11.5 - 14.5 % [place] Hematocrit (Bld) [Volume fraction] 23.1 % Low 37 - 47 % [place] Hemoglobin (Bld) [Mass/Vol] 7.0 g/dL Critically low [place] Immature Grans (Abs) 0.07 [place] Immature granulocytes (Bld) [#/Vol] 0.7 % [place] Interpretation and review of laboratory results Abnormal [place] Lymphocytes (Bld) [#/Vol] 2.0 10*3/uL [place] Lymphocytes/100 WBC (Bld) 19.6 % [place] MCH (RBC) [Entitic mass] 29.4 pg 26 - 33 pg [place] MCHC (RBC) [Mass/Vol] 30.3 g/dL [place] MCV (RBC) [Entitic vol] 97.1 fL 81 - 99 fL [place] Monocytes (Bld) [#/Vol] 0.9 10*3/uL [place] Monocytes/100 WBC (Bld) 8.4 % [place] Nucleated RBC/100 WBC (Bld) [Ratio] 0 % /100 wbc [place] Pathologist Review Shona VILLAFANA M [place], [place] Platelet mean volume (Bld) [Entitic vol] 9.5 fL 9.4 - 12.4 fL [place] Platelets (Bld) [#/Vol] ADEQUATE Adequate [place], [place] Platelets (Bld) [#/Vol] 385 10*3/uL [place] RBC (Bld) [#/Vol] 2.38 10*6/uL Low [place] RDW-SD 53.4 fL High 35 - 45 fL [place] Rouleaux SLIGHT Absent [place] Comment on above: Performed at [facility] [address] [place] [address] Segmented neutrophils/100 WBC (Bld) 69.1 % [place] Segs Absolute 7.0 [place] WBC (Bld) [#/Vol] 10.2 10*3/uL [place] CBC WITH DIFFERENTIALon 04-27 PATHOLOGIST REVIEWED Shona VILLAFANA Normal [facility] Comment on above: Performed By: #### C BCWD, BMP, ANION, EGFR1 #### On License Of [facility] [address] [place] [address] Platelets (Bld) [#/Vol] ADEQUATE Normal Adequate [facility] Comment on above: Performed By: #### C BCWD, BMP, ANION, EGFR1 #### [address] [address] ROULEAUX SLIGHT Normal Absent [facility] Comment on above: Performed By: #### C BCWD, BMP, ANION, EGFR1 #### [address] [address] ABS IMMATURE GRANS (IG) 0.07 thou/mm3 Normal 0.00-0.07 [facility] Comment on above: Performed By: #### C BCWD, BMP, ANION, EGFR1 #### [address] [address] ABS NEUTROPHILS 7.0 thou/mm3 Normal 1.8-7.7 [facility] Comment on above: Performed By: #### C BCWD, BMP, ANION, EGFR1 #### [address] [address] Basophils (Bld) [#/Vol] 0.0 thou/mm3 Normal 0.0-0.1 [facility] Comment on above: Performed By: #### C BCWD, BMP, ANION, EGFR1 #### [address] [address] Basophils/100 WBC (Bld) 0.2 % Normal [facility] Comment on above: Performed By: #### C BCWD, BMP, ANION, EGFR1 #### [facility] [email or web address] [facility] [address] [place] [address] Eosinophils (Bld) [#/Vol] 0.2 thou/mm3 Normal 0.0-0.4 [facility] Comment on above: Performed By: #### C BCWD, BMP, ANION, EGFR1 #### [facility] [employer] [facility] [address] [place] [address] Eosinophils/100 WBC (Bld) 2.0 % Normal [facility] Comment on above: Performed By: #### C BCWD, BMP, ANION, EGFR1 #### [address] [address] Erythrocyte distribution width (RBC) [Ratio] 15.2 % High 11.5-14.5 [facility] Comment on above: Performed By: #### C BCWD, BMP, ANION, EGFR1 #### [address] [address] Hematocrit (Bld) [Volume fraction] 23.1 % Low 37.0-47.0 [facility] Comment on above: Performed By: #### C BCWD, BMP, ANION, EGFR1 #### [address] [address] Hemoglobin (Bld) [Mass/Vol] 7.0 gm/dl Critically low 12.0-16.0 [facility] Comment on above: Performed By: #### C BCWD, BMP, ANION, EGFR1 #### [address] [address] IMMATURE GRANS (IG) 0.7 % Normal [facility] Comment on above: Performed By: #### C BCWD, BMP, ANION, EGFR1 #### [address] [address] Lymphocytes (Bld) [#/Vol] 2.0 thou/mm3 Normal 1.0-4.8 [facility] Comment on above: Performed By: #### C BCWD, BMP, ANION, EGFR1 #### [address] [address] Lymphocytes/100 WBC (Bld) 19.6 % Normal [facility] Comment on above: Performed By: #### C BCWD, BMP, ANION, EGFR1 #### [address] [address] MCH (RBC) [Entitic mass] 29.4 pg Normal 26.0-33.0 [facility] Comment on above: Performed By: #### C BCWD, BMP, ANION, EGFR1 #### [facility] [address] [place] [address] MCHC (RBC) [Mass/Vol] 30.3 gm/dl Low 32.2-35.5 [facility] Comment on above: Performed By: #### C BCWD, BMP, ANION, EGFR1 #### [facility] [employer] [facility] [address] [place] [address] MCV (RBC) [Entitic vol] 97.1 fL Normal 81.0-99.0 [facility] Comment on above: Performed By: #### C BCWD, BMP, ANION, EGFR1 #### On License Of [facility] [address] [place] [address] Monocytes (Bld) [#/Vol] 0.9 thou/mm3 Normal 0.4-1.3 [facility] Comment on above: Performed By: #### C BCWD, BMP, ANION, EGFR1 #### [address] [address] Monocytes/100 WBC (Bld) 8.4 % Normal [facility] Comment on above: Performed By: #### C BCWD, BMP, ANION, EGFR1 #### [address] [address] Neutrophils/100 WBC (Bld) 69.1 % Normal [facility] Comment on above: Performed By: #### C BCWD, BMP, ANION, EGFR1 #### [facility] [address] [place] [address] Nucleated RBC/100 WBC (Bld) [Ratio] 0 /100 wbc Normal [facility] Comment on above: Performed By: #### C BCWD, BMP, ANION, EGFR1 #### [facility] [employer] [facility] [address] [place] [address] Platelet mean volume (Bld) [Entitic vol] 9.5 fL Normal 9.4-12.4 [facility] Comment on above: Performed By: #### C BCWD, BMP, ANION, EGFR1 #### [facility] [employer] [facility] [address] [place] [address] Platelets (Bld) [#/Vol] 385 thou/mm3 Normal 130-400 [facility] Comment on above: Performed By: #### C BCWD, BMP, ANION, EGFR1 #### [facility] [address] [place] [address] RBC (Bld) [#/Vol] 2.38 mill/mm3 Low 4.20-5.40 [facility] Comment on above: Performed By: #### C BCWD, BMP, ANION, EGFR1 #### [address] [address] RDW-SD 53.4 fL High 35.0-45.0 [facility] Comment on above: Performed By: #### C BCWD, BMP, ANION, EGFR1 #### [address] [address] WBC (Bld) [#/Vol] 10.2 thou/mm3 Normal 4.8-10.8 [facility] Comment on above: Performed By: #### C BCWD, BMP, ANION, EGFR1 #### [address] [address] GFR, ESTIMATEDon 05-14-2020 GFR/1.73 sq M.predicted MDRD (S/P/Bld) [Vol rate/Area] 47 ml/min/1.73m2 Abnormal [facility] Comment on above: Result Comment: Stag [...] #### C BCWD, BMP, ANION, EGFR1 #### [address] [address] Glomerular Filtration Rate, Estimatedon 05-14-2020 Est, Glom Filt Rate 47 Abnormal ml/min/1 .73 m2 [facility] [place] Comment on above: Stage Description G [...] Vol. 139 (2) pg 137-147. Performed at [facility] [email or web address] [address] [address] HGB,HCTon 05-14-2020 Hematocrit (Bld) [Volume fraction] 27.1 % Low 37.0-47.0 [facility] Comment on above: Performed By: #### C BCWD, BMP, ANION, EGFR1 #### [address] [address] Hemoglobin (Bld) [Mass/Vol] 8.2 gm/dl Low 12.0-16.0 [facility] Comment on above: Performed By: #### C BCWD, BMP, ANION, EGFR1 #### [facility] [email or web address] [address] [address] Hemoglobin and hematocrit, b loodon 05-14-2020 Hematocrit (Bld) [Volume fraction] 27.1 % Low 37 - 47 % [place] Comment on above: Performed at [address] [address] Hemoglobin (Bld) [Mass/Vol] 8.2 g/dL [place] Interpretation and review of laboratory results Abnormal [place] LEUKO-REDUCED RCon 0 -1 IRR LEUKO-REDUCED RC [id number] transfused Normal [facility] Comment on above: Performed By: #### C BCWD, BMP, ANION, EGFR1 #### [facility] [email or web address] [address] [address] Otheron 05-14-2020 Interpretation and review of laboratory results Abnormal [place] SCAN OF BLOOD SMEARon 2019 SCAN OF BLOOD SMEAR see below Normal [facility] Comment on above: Result Comment: Alix juliania Exceeded; Scan of Differential Slide Performed Performed By: #### C BCWD, BMP, ANION, EGFR1 #### [facility] [address] [place] [address] Scan of Blood Smearon 2019 SCAN OF BLOOD SMEAR see below [place] Comment on above: Criteria Exceeded; S can of Differential Slide Performed Performed at [facility] [email or web address] [facility] [address] [place] [address] TYPE AND SCREENon 05-14-2020 ABO A [place] Rh Factor Positive [place] TYPE AND SCREEN CAPTUREon ABO CAPTURE A Normal [facility] Comment on above: Performed By: #### C BCWD, BMP, ANION, EGFR1 #### [facility] [address] [place] [address] INDIRECT AUTUMN CAPTURE Negative Normal [facility] Comment on above: Performed By: #### C BCWD, BMP, ANION, EGFR1 #### [facility] [address] [place] [address] RH CAPTURE (2 D CLONES) Positive Normal [facility] Comment on above: Performed By: #### C BCWD, BMP, ANION, EGFR1 #### [facility] [address] [place] [address] XR FOOT LEFT (MIN 3 VIEWS)on 05-14-2020 [...] Rodrick Baker MD 05/14/20 Final result Normal [facility] 1. Osteoporosis. Multifocal degenerative changes. 2. Soft tissue swelling of the foot. Questionable small erosion first metatarsal head versus cortical cyst.. Cannot exclude gout. This report has been created using voice recognition software. It may contain minor errors which are inherent in voice recognition technology. Final report electronically signed by Dr. Rodrick Baker on 05/14/2020 8:45 AM [facility] [employer] SHREYA PROCEDURE: XR FOOT LEFT (MIN 3 VIEWS) [...] the first metatarsal head. Cannot exclude gout. [facility] [place], [facility] Incoming Radiant Results From [employer] - 05/14/2020 8:47 AM EDT PROCEDURE: XR [...] Dr. Rodrick Baker on 05/14/2020 8:45 AM [place] ANION GAPon 05-13-2020 Anion gap [Moles/Vol] 10.0 mmol/L Normal 8.0-16.0 [facility] Comment on above: Result Comment: ANIO N GAP = Sodium -(Chloride + CO2) Performed By: #### C BCWD, BMP, ANION, EGFR1 #### [facility] [address] [place] [address] Anion Gapon 05-13-2020 Anion gap [Moles/Vol] 10.0 mmol/L 8 - 16 meq/L [place] Comment on above: ANION GAP = Sodium - (Chloride + CO2) Performed at [facility] [address] [place] [address] BASIC METABOL PANELon 2019 Calcium [Mass/Vol] 7.8 mg/dL Low 8.5-10.5 [facility] Comment on above: Performed By: #### C BCWD, BMP, ANION, EGFR1 #### [facility] [address] [place] [address] Chloride [Moles/Vol] 102 mmol/L Normal 98-111 [facility] Comment on above: Performed By: #### C BCWD, BMP, ANION, EGFR1 #### [facility] [email or web address] [facility] [address] [place] [address] CO2 [Moles/Vol] 23 mmol/L Normal 23-33 [facility] Comment on above: Performed By: #### C BCWD, BMP, ANION, EGFR1 #### [facility] [address] [place] [address] Creatinine [Mass/Vol] 1.0 mg/dL Normal 0.4-1.2 [facility] Comment on above: Performed By: #### C BCWD, BMP, ANION, EGFR1 #### [facility] [email or web address] [facility] [address] [place] [address] Glucose [Mass/Vol] 151 mg/dL High 70-108 [facility] Comment on above: Performed By: #### C BCWD, BMP, ANION, EGFR1 #### [facility] [email or web address] [facility] [address] [place] [address] Potassium [Moles/Vol] 4.0 mmol/L Normal 3.5-5.2 [facility] Comment on above: Performed By: #### C BCWD, BMP, ANION, EGFR1 #### [facility] [email or web address] [facility] [address] [place] [address] Sodium [Moles/Vol] 135 mmol/L Normal 135-145 [facility] Comment on above: Performed By: #### C BCWD, BMP, ANION, EGFR1 #### [facility] [email or web address] [facility] [address] [place] [address] Urea nitrogen [Mass/Vol] 18 mg/dL Normal 7-22 [facility] Comment on above: Performed By: #### C BCWD, BMP, ANION, EGFR1 #### [facility] [email or web address] [facility] [address] [place] [address] Basic Metabolic Panelon 04-27 Calcium [Mass/Vol] 7.8 mg/dL Low 8.5 - 10. 5 mg/dL [place] Comment on above: Performed at [facility] [address] [place] [address] Chloride [Moles/Vol] 102 mmol/L 98 - 11 1 meq/L [place] CO2 [Moles/Vol] 23 mmol/L 23 - 33 meq/L [place] Creatinine [Mass/Vol] 1 mg/dL 0.4 - 1.2 mg/dL [place] Glucose [Mass/Vol] 151 mg/dL High 70 - 108 mg/dL [place] Potassium [Moles/Vol] 4.0 mmol/L 3.5 - 5.2 meq/L [place] Sodium [Moles/Vol] 135 mmol/L 135 - 145 meq/L [place] Urea nitrogen [Mass/Vol] 18 mg/dL 7 - 22 mg/dL [place] CBC Auto Differentialon 04-27 Basophils (Bld) [#/Vol] 0.0 10*3/uL [place] Basophils/100 WBC (Bld) 0.1 % [place] Eosinophils (Bld) [#/Vol] 0.1 10*3/uL [place] Eosinophils/100 WBC (Bld) 1.3 % [place] Erythrocyte distribution width (RBC) [Ratio] 15.1 % High 11.5 - 14.5 % [place] Hematocrit (Bld) [Volume fraction] 25.0 % Low 37 - 47 % [place] Hemoglobin (Bld) [Mass/Vol] 7.6 g/dL Low [place] Immature Grans (Abs) 0.12 [place] Immature granulocytes (Bld) [#/Vol] 1 % [place] Interpretation and review of laboratory results Abnormal [place] Lymphocytes (Bld) [#/Vol] 1.5 10*3/uL [place] Lymphocytes/100 WBC (Bld) 13.4 % [place] MCH (RBC) [Entitic mass] 30.0 pg 26 - 33 pg [place] MCHC (RBC) [Mass/Vol] 30.4 g/dL [place] MCV (RBC) [Entitic vol] 98.8 fL 81 - 99 fL [place] Monocytes (Bld) [#/Vol] 0.8 10*3/uL [place] Monocytes/100 WBC (Bld) 7.3 % [place] Nucleated RBC/100 WBC (Bld) [Ratio] 0 % /100 wbc [place] Comment on above: Performed at [facility] [address] [place] [address] Platelet mean volume (Bld) [Entitic vol] 9.5 fL 9.4 - 12.4 fL [place] Platelets (Bld) [#/Vol] 396 10*3/uL [place] RBC (Bld) [#/Vol] 2.53 10*6/uL Low [place] RDW-SD 54.4 fL High 35 - 45 fL [place] Segmented neutrophils/100 WBC (Bld) 76.9 % [place] Segs Absolute 8.8 [place] WBC (Bld) [#/Vol] 11.5 10*3/uL [place] CBC WITH DIFFERENTIALon 04-27 ABS IMMATURE GRANS (IG) 0.12 thou/mm3 High 0.00-0.07 [facility] Comment on above: Performed By: #### C BCWD, BMP, ANION, EGFR1 #### [facility] [address] [place] [address] ABS NEUTROPHILS 8.8 thou/mm3 High 1.8-7.7 [facility] Comment on above: Performed By: #### C BCWD, BMP, ANION, EGFR1 #### [facility] [address] [place] [address] Basophils (Bld) [#/Vol] 0.0 thou/mm3 Normal 0.0-0.1 [facility] Comment on above: Performed By: #### C BCWD, BMP, ANION, EGFR1 #### [facility] [address] [place] [address] Basophils/100 WBC (Bld) 0.1 % Normal [facility] Comment on above: Performed By: #### C BCWD, BMP, ANION, EGFR1 #### [facility] [address] [place] [address] Eosinophils (Bld) [#/Vol] 0.1 thou/mm3 Normal 0.0-0.4 [facility] Comment on above: Performed By: #### C BCWD, BMP, ANION, EGFR1 #### [facility] [address] [place] [address] Eosinophils/100 WBC (Bld) 1.3 % Normal [facility] Comment on above: Performed By: #### C BCWD, BMP, ANION, EGFR1 #### [facility] [address] [place] [address] Erythrocyte distribution width (RBC) [Ratio] 15.1 % High 11.5-14.5 [facility] Comment on above: Performed By: #### C BCWD, BMP, ANION, EGFR1 #### On License Of [facility] [address] [place] [address] Hematocrit (Bld) [Volume fraction] 25.0 % Low 37.0-47.0 [facility] Comment on above: Performed By: #### C BCWD, BMP, ANION, EGFR1 #### On License Of [facility] [address] [place] [address] Hemoglobin (Bld) [Mass/Vol] 7.6 gm/dl Low 12.0-16.0 [facility] Comment on above: Performed By: #### C BCWD, BMP, ANION, EGFR1 #### [address] [address] IMMATURE GRANS (IG) 1.0 % Normal [facility] Comment on above: Performed By: #### C BCWD, BMP, ANION, EGFR1 #### [address] [address] Lymphocytes (Bld) [#/Vol] 1.5 thou/mm3 Normal 1.0-4.8 [facility] Comment on above: Performed By: #### C BCWD, BMP, ANION, EGFR1 #### [address] [address] Lymphocytes/100 WBC (Bld) 13.4 % Normal [facility] Comment on above: Performed By: #### C BCWD, BMP, ANION, EGFR1 #### [address] [address] MCH (RBC) [Entitic mass] 30.0 pg Normal 26.0-33.0 [facility] Comment on above: Performed By: #### C BCWD, BMP, ANION, EGFR1 #### [address] [address] MCHC (RBC) [Mass/Vol] 30.4 gm/dl Low 32.2-35.5 [facility] Comment on above: Performed By: #### C BCWD, BMP, ANION, EGFR1 #### [address] [address] MCV (RBC) [Entitic vol] 98.8 fL Normal 81.0-99.0 [facility] Comment on above: Performed By: #### C BCWD, BMP, ANION, EGFR1 #### [facility] [email or web address] [facility] [employer] [address] [place] [address] Monocytes (Bld) [#/Vol] 0.8 thou/mm3 Normal 0.4-1.3 [facility] Comment on above: Performed By: #### C BCWD, BMP, ANION, EGFR1 #### [facility] [address] [place] [address] Monocytes/100 WBC (Bld) 7.3 % Normal [facility] Comment on above: Performed By: #### C BCWD, BMP, ANION, EGFR1 #### [address] [address] Neutrophils/100 WBC (Bld) 76.9 % Normal [facility] Comment on above: Performed By: #### C BCWD, BMP, ANION, EGFR1 #### [facility] [address] [place] [address] Nucleated RBC/100 WBC (Bld) [Ratio] 0 /100 wbc Normal [facility] Comment on above: Performed By: #### C BCWD, BMP, ANION, EGFR1 #### [facility] [address] [address] Platelet mean volume (Bld) [Entitic vol] 9.5 fL Normal 9.4-12.4 [facility] Comment on above: Performed By: #### C BCWD, BMP, ANION, EGFR1 #### [facility] [address] [place] [address] Platelets (Bld) [#/Vol] 396 thou/mm3 Normal 130-400 [facility] Comment on above: Performed By: #### C BCWD, BMP, ANION, EGFR1 #### [facility] [address] [place] [address] RBC (Bld) [#/Vol] 2.53 mill/mm3 Low 4.20-5.40 [facility] Comment on above: Performed By: #### C BCWD, BMP, ANION, EGFR1 #### [facility] [address] [place] [address] RDW-SD 54.4 fL High 35.0-45.0 [facility] Comment on above: Performed By: #### C BCWD, BMP, ANION, EGFR1 #### [facility] [address] [place] [address] WBC (Bld) [#/Vol] 11.5 thou/mm3 High 4.8-10.8 [facility] Comment on above: Performed By: #### C BCWD, BMP, ANION, EGFR1 #### [facility] [address] [place] [address] GFR, ESTIMATEDon 05-13-2020 GFR/1.73 sq M.predicted MDRD (S/P/Bld) [Vol rate/Area] 53 ml/min/1.73m2 Abnormal [facility] Comment on above: Result Comment: Stag [...] #### C BCWD, BMP, ANION, EGFR1 #### [facility] [employer] [facility] [address] [place] [address] Glomerular Filtration Rate, Estimatedon 05-13-2020 Est, Glom Filt Rate 53 Abnormal ml/min/1 .73 m2 [facility], [place] Comment on above: Stage Description GF R, [...] Vol. 139 (2) pg 137-147. Performed at [facility] [address] [place] [address] Otheron 05-13-2020 Interpretation and review of laboratory results Abnormal [place] ANION GAPon 05-12-2020 Anion gap [Moles/Vol] 8.0 mmol/L Normal 8.0-16.0 [facility] Comment on above: Result Comment: ANIO N GAP = Sodium -(Chloride + CO2) Performed By: #### B MP, ANION, EGFR1, CBCWD #### [facility] [address] [place] [address] Anion Gapon 05-12-2020 Anion gap [Moles/Vol] 8.0 mmol/L 8 - 16 meq/L [place] Comment on above: ANION GAP = Sodium - (Chloride + CO2) Performed at [facility] [address] [place] [address] BASIC METABOL PANELon 2019 Calcium [Mass/Vol] 7.7 mg/dL Low 8.5-10.5 [facility] Comment on above: Performed By: #### B MP, ANION, EGFR1, CBCWD #### [facility] [address] [place] [address] Chloride [Moles/Vol] 105 mmol/L Normal 98-111 [facility] Comment on above: Performed By: #### B MP, ANION, EGFR1, CBCWD #### [facility] [address] [place] [address] CO2 [Moles/Vol] 24 mmol/L Normal 23-33 [facility] Comment on above: Performed By: #### B MP, ANION, EGFR1, CBCWD #### [facility] [address] [place] [address] Creatinine [Mass/Vol] 1.1 mg/dL Normal 0.4-1.2 [facility] Comment on above: Performed By: #### B MP, ANION, EGFR1, CBCWD #### [facility] [address] [place] [address] Glucose [Mass/Vol] 123 mg/dL High 70-108 [facility] Comment on above: Performed By: #### B MP, ANION, EGFR1, CBCWD #### [facility] [employer] [facility] [address] [place] [address] Potassium [Moles/Vol] 3.9 mmol/L Normal 3.5-5.2 [facility] Comment on above: Performed By: #### B MP, ANION, EGFR1, CBCWD #### [facility] [email or web address] [facility] [address] [place] [address] Sodium [Moles/Vol] 137 mmol/L Normal 135-145 [facility] Comment on above: Performed By: #### B MP, ANION, EGFR1, CBCWD #### [facility] [employer] [facility] [address] [place] [address] Urea nitrogen [Mass/Vol] 20 mg/dL Normal 7-22 [facility] Comment on above: Performed By: #### B MP, ANION, EGFR1, CBCWD #### [facility] [address] [place] [address] Basic Metabolic Panelon 04-27 Calcium [Mass/Vol] 7.7 mg/dL Low 8.5 - 10. 5 mg/dL [place] Comment on above: Performed at [facility] [address] [place] [address] Chloride [Moles/Vol] 105 mmol/L 98 - 11 1 meq/L [facility], [place] CO2 [Moles/Vol] 24 mmol/L 23 - 33 meq/L [facility], [place] Creatinine [Mass/Vol] 1.1 mg/dL 0.4 - 1.2 mg/dL [facility], [place] Glucose [Mass/Vol] 123 mg/dL High 70 - 108 mg/dL [facility], [place] Potassium [Moles/Vol] 3.9 mmol/L 3.5 - 5.2 meq/L [facility], [place] Sodium [Moles/Vol] 137 mmol/L 135 - 145 meq/L [facility], [place] Urea nitrogen [Mass/Vol] 20 mg/dL 7 - 22 mg/dL [facility], [place] Bladder scanon 05-12-2020 Dora Costa 05/12/2020 1:12 PM Bladder scan was completed by Sadie Costa at 1245pm. The residual amount of 725ml was resulted to Mirza WESLEY. [place] Floralatanya Nesbitt 05/12/2020 12:25 AM A Bladder scan was performed at 0021 . The patient's last void was at has not voided since she was straight cathed at 15:30. The residual amount was measured to be 656 ML. Report of results was given to Missy WESLEY. [place] CBC Auto Differentialon 04-27 Basophils (Bld) [#/Vol] 0.0 10*3/uL [place] Basophils/100 WBC (Bld) 0.1 % [place] Eosinophils (Bld) [#/Vol] 0.2 10*3/uL [place] Eosinophils/100 WBC (Bld) 2.4 % [place] Erythrocyte distribution width (RBC) [Ratio] 15 % High 11.5 - 14.5 % [place] Hematocrit (Bld) [Volume fraction] 24.8 % Low 37 - 47 % [place] Hemoglobin (Bld) [Mass/Vol] 7.4 g/dL Low [place] Immature Grans (Abs) 0.06 [place] Immature granulocytes (Bld) [#/Vol] 0.6 % [place] Interpretation and review of laboratory results Abnormal [place] Lymphocytes (Bld) [#/Vol] 1.4 10*3/uL [place] Lymphocytes/100 WBC (Bld) 14.9 % [place] MCH (RBC) [Entitic mass] 29.4 pg 26 - 33 pg [place] MCHC (RBC) [Mass/Vol] 29.8 g/dL [place] MCV (RBC) [Entitic vol] 98.4 fL 81 - 99 fL [place] Monocytes (Bld) [#/Vol] 0.9 10*3/uL [place] Monocytes/100 WBC (Bld) 8.9 % [place] Nucleated RBC/100 WBC (Bld) [Ratio] 0 % /100 wbc [place] Comment on above: Performed at [facility] [address] [place] [address] Platelet mean volume (Bld) [Entitic vol] 9.6 fL 9.4 - 12.4 fL [place] Platelets (Bld) [#/Vol] 370 10*3/uL [place] RBC (Bld) [#/Vol] 2.52 10*6/uL Low [place] RDW-SD 54 fL High 35 - 45 fL [place] Segmented neutrophils/100 WBC (Bld) 73.1 % [place] Segs Absolute 7.0 [place] WBC (Bld) [#/Vol] 9.6 10*3/uL [place] CBC WITH DIFFERENTIALon 04-27 ABS IMMATURE GRANS (IG) 0.06 thou/mm3 Normal 0.00-0.07 [facility] Comment on above: Performed By: #### B MP, ANION, EGFR1, CBCWD #### [facility] [address] [place] [address] ABS NEUTROPHILS 7.0 thou/mm3 Normal 1.8-7.7 [facility] Comment on above: Performed By: #### B MP, ANION, EGFR1, CBCWD #### [facility] [address] [place] [address] Basophils (Bld) [#/Vol] 0.0 thou/mm3 Normal 0.0-0.1 [facility] Comment on above: Performed By: #### B MP, ANION, EGFR1, CBCWD #### [facility] [employer] [facility] [address] [place] [address] Basophils/100 WBC (Bld) 0.1 % Normal [facility] Comment on above: Performed By: #### B MP, ANION, EGFR1, CBCWD #### [facility] [address] [place] [address] Eosinophils (Bld) [#/Vol] 0.2 thou/mm3 Normal 0.0-0.4 [facility] Comment on above: Performed By: #### B MP, ANION, EGFR1, CBCWD #### [address] [address] Eosinophils/100 WBC (Bld) 2.4 % Normal [facility] Comment on above: Performed By: #### B MP, ANION, EGFR1, CBCWD #### [address] [address] Erythrocyte distribution width (RBC) [Ratio] 15.0 % High 11.5-14.5 [facility] Comment on above: Performed By: #### B MP, ANION, EGFR1, CBCWD #### [address] [address] Hematocrit (Bld) [Volume fraction] 24.8 % Low 37.0-47.0 [facility] Comment on above: Performed By: #### B MP, ANION, EGFR1, CBCWD #### [address] [address] Hemoglobin (Bld) [Mass/Vol] 7.4 gm/dl Low 12.0-16.0 [facility] Comment on above: Performed By: #### B MP, ANION, EGFR1, CBCWD #### [address] [address] IMMATURE GRANS (IG) 0.6 % Normal [facility] Comment on above: Performed By: #### B MP, ANION, EGFR1, CBCWD #### [address] [address] Lymphocytes (Bld) [#/Vol] 1.4 thou/mm3 Normal 1.0-4.8 [facility] Comment on above: Performed By: #### B MP, ANION, EGFR1, CBCWD #### [address] [address] Lymphocytes/100 WBC (Bld) 14.9 % Normal [facility] Comment on above: Performed By: #### B MP, ANION, EGFR1, CBCWD #### [address] [address] MCH (RBC) [Entitic mass] 29.4 pg Normal 26.0-33.0 [facility] Comment on above: Performed By: #### B MP, ANION, EGFR1, CBCWD #### On License Of [facility] [address] [place] [address] MCHC (RBC) [Mass/Vol] 29.8 gm/dl Low 32.2-35.5 [facility] Comment on above: Performed By: #### B MP, ANION, EGFR1, CBCWD #### On License Of [facility] [address] [place] [address] MCV (RBC) [Entitic vol] 98.4 fL Normal 81.0-99.0 [facility] Comment on above: Performed By: #### B MP, ANION, EGFR1, CBCWD #### [address] [address] Monocytes (Bld) [#/Vol] 0.9 thou/mm3 Normal 0.4-1.3 [facility] Comment on above: Performed By: #### B MP, ANION, EGFR1, CBCWD #### [address] [address] Monocytes/100 WBC (Bld) 8.9 % Normal [facility] Comment on above: Performed By: #### B MP, ANION, EGFR1, CBCWD #### [address] [address] Neutrophils/100 WBC (Bld) 73.1 % Normal [facility] Comment on above: Performed By: #### B MP, ANION, EGFR1, CBCWD #### On License Of [facility] [address] [place] [address] Nucleated RBC/100 WBC (Bld) [Ratio] 0 /100 wbc Normal [facility] Comment on above: Performed By: #### B MP, ANION, EGFR1, CBCWD #### [facility] [address] [place] [address] Platelet mean volume (Bld) [Entitic vol] 9.6 fL Normal 9.4-12.4 [facility] Comment on above: Performed By: #### B MP, ANION, EGFR1, CBCWD #### [facility] [address] [place] [address] Platelets (Bld) [#/Vol] 370 thou/mm3 Normal 130-400 [facility] Comment on above: Performed By: #### B MP, ANION, EGFR1, CBCWD #### [address] [address] RBC (Bld) [#/Vol] 2.52 mill/mm3 Low 4.20-5.40 [facility] Comment on above: Performed By: #### B MP, ANION, EGFR1, CBCWD #### [address] [address] RDW-SD 54.0 fL High 35.0-45.0 [facility] Comment on above: Performed By: #### B MP, ANION, EGFR1, CBCWD #### [address] [address] WBC (Bld) [#/Vol] 9.6 thou/mm3 Normal 4.8-10.8 [facility] Comment on above: Performed By: #### B MP, ANION, EGFR1, CBCWD #### [address] [address] GFR, ESTIMATEDon 05-12-2020 GFR/1.73 sq M.predicted MDRD (S/P/Bld) [Vol rate/Area] 47 ml/min/1.73m2 Abnormal [facility] Comment on above: Result Comment: Stag [...] #### B MP, ANION, EGFR1, CBCWD #### [address] [address] Glomerular Filtration Rate, Estimatedon 05-12-2020 Est, Glom Filt Rate 47 Abnormal ml/min/1 .73 m2 [place] Comment on above: Stage Description GF [...] Vol. 139 (2) pg 137-147. Performed at [facility] [address] [place] [address] Otheron 05-12-2020 Interpretation and review of laboratory results Abnormal [place] ANION GAPon 05-11-2020 Anion gap [Moles/Vol] 11.0 mmol/L Normal 8.0-16.0 [facility] Comment on above: Result Comment: ANIO N GAP = Sodium -(Chloride + CO2) Performed By: #### C BCWD, BMP, ANION, EGFR1 #### [facility] [address] [place] [address] Anion Gapon 05-11-2020 Anion gap [Moles/Vol] 11.0 mmol/L 8 - 16 meq/L [place] Comment on above: ANION GAP = Sodium - (Chloride + CO2) Performed at [facility] [address] [place] [address] BASIC METABOL PANELon 2019 Calcium [Mass/Vol] 8.1 mg/dL Low 8.5-10.5 [facility] Comment on above: Performed By: #### C BCWD, BMP, ANION, EGFR1 #### [facility] [address] [place] [address] Chloride [Moles/Vol] 107 mmol/L Normal 98-111 [facility] Comment on above: Performed By: #### C BCWD, BMP, ANION, EGFR1 #### [email or web address] [address] [place] [address] CO2 [Moles/Vol] 24 mmol/L Normal 23-33 [facility] Comment on above: Performed By: #### C BCWD, BMP, ANION, EGFR1 #### [facility] [address] [place] [address] Creatinine [Mass/Vol] 1.1 mg/dL Normal 0.4-1.2 [facility] Comment on above: Performed By: #### C BCWD, BMP, ANION, EGFR1 #### [facility] [address] [place] [address] Glucose [Mass/Vol] 131 mg/dL High 70-108 [facility] Comment on above: Performed By: #### C BCWD, BMP, ANION, EGFR1 #### [facility] [address] [place] [address] Potassium [Moles/Vol] 4.3 mmol/L Normal 3.5-5.2 [facility] Comment on above: Performed By: #### C BCWD, BMP, ANION, EGFR1 #### [facility] [address] [place] [address] Sodium [Moles/Vol] 142 mmol/L Normal 135-145 [facility] Comment on above: Performed By: #### C BCWD, BMP, ANION, EGFR1 #### [facility] [address] [place] [address] Urea nitrogen [Mass/Vol] 23 mg/dL High 7-22 [facility] Comment on above: Performed By: #### C BCWD, BMP, ANION, EGFR1 #### [facility] [address] [place] [address] Basic Metabolic Panel 04-27 Calcium [Mass/Vol] 8.1 mg/dL Low 8.5 - 10. 5 mg/dL [place] Comment on above: Performed at [facility] [address] [place] [address] Chloride [Moles/Vol] 107 mmol/L 98 - 11 1 meq/L [place] CO2 [Moles/Vol] 24 mmol/L 23 - 33 meq/L [place] Creatinine [Mass/Vol] 1.1 mg/dL 0.4 - 1.2 mg/dL [place] Glucose [Mass/Vol] 131 mg/dL High 70 - 108 mg/dL [place] Potassium [Moles/Vol] 4.3 mmol/L 3.5 - 5.2 meq/L [place] Sodium [Moles/Vol] 142 mmol/L 135 - 145 meq/L [place] Urea nitrogen [Mass/Vol] 23 mg/dL High 7 - 22 mg/dL [place] Bladder scanon 05-11-2020 Dora Costa 05/11/2020 3:29 PM Bladder scan was completed by Sadie Costa at 1505. The residual amount of 770ml was resulted to Franca WESLEY. [place], [place] CBC Auto Differentialon 04-27 Basophils (Bld) [#/Vol] 0.0 10*3/uL [place] Basophils/100 WBC (Bld) 0.2 % [place] Eosinophils (Bld) [#/Vol] 0.1 10*3/uL [place] Eosinophils/100 WBC (Bld) 0.7 % [place] Erythrocyte distribution width (RBC) [Ratio] 15.5 % High 11.5 - 14.5 % [place] Hematocrit (Bld) [Volume fraction] 30.3 % Low 37 - 47 % [place] Hemoglobin (Bld) [Mass/Vol] 8.9 g/dL Low [place] Immature Grans (Abs) 0.05 [place] Immature granulocytes (Bld) [#/Vol] 0.5 % [place] Interpretation and review of laboratory results Abnormal [place] Lymphocytes (Bld) [#/Vol] 1.4 10*3/uL [place] Lymphocytes/100 WBC (Bld) 14.7 % [place] MCH (RBC) [Entitic mass] 29.5 pg 26 - 33 pg [place] MCHC (RBC) [Mass/Vol] 29.4 g/dL [place] MCV (RBC) [Entitic vol] 100.3 fL High 81 - 99 fL [place] Monocytes (Bld) [#/Vol] 0.9 10*3/uL [place] Monocytes/100 WBC (Bld) 9.6 % [place] Nucleated RBC/100 WBC (Bld) [Ratio] 0 % /100 wbc [place] Comment on above: Performed at [facility] [address] [place] [address] Platelet mean volume (Bld) [Entitic vol] 9.5 fL 9.4 - 12.4 fL [place] Platelets (Bld) [#/Vol] 445 10*3/uL [place] RBC (Bld) [#/Vol] 3.02 10*6/uL Low [place] RDW-SD 57.2 fL High 35 - 45 fL [place] Segmented neutrophils/100 WBC (Bld) 74.3 % [place] Segs Absolute 7.2 [place] WBC (Bld) [#/Vol] 9.7 10*3/uL [place] CBC WITH DIFFERENTIALon 04-27 ABS IMMATURE GRANS (IG) 0.05 thou/mm3 Normal 0.00-0.07 [facility] Comment on above: Performed By: #### C BCWD, BMP, ANION, EGFR1 #### [facility] [address] [place] [address] ABS NEUTROPHILS 7.2 thou/mm3 Normal 1.8-7.7 [facility] Comment on above: Performed By: #### C BCWD, BMP, ANION, EGFR1 #### [facility] [address] [place] [address] Basophils (Bld) [#/Vol] 0.0 thou/mm3 Normal 0.0-0.1 [facility] Comment on above: Performed By: #### C BCWD, BMP, ANION, EGFR1 #### [facility] [address] [place] [address] Basophils/100 WBC (Bld) 0.2 % Normal [facility] Comment on above: Performed By: #### C BCWD, BMP, ANION, EGFR1 #### [address] [address] Eosinophils (Bld) [#/Vol] 0.1 thou/mm3 Normal 0.0-0.4 [facility] Comment on above: Performed By: #### C BCWD, BMP, ANION, EGFR1 #### [address] [address] Eosinophils/100 WBC (Bld) 0.7 % Normal [facility] Comment on above: Performed By: #### C BCWD, BMP, ANION, EGFR1 #### [address] [address] Erythrocyte distribution width (RBC) [Ratio] 15.5 % High 11.5-14.5 [facility] Comment on above: Performed By: #### C BCWD, BMP, ANION, EGFR1 #### [address] [address] Hematocrit (Bld) [Volume fraction] 30.3 % Low 37.0-47.0 [facility] Comment on above: Performed By: #### C BCWD, BMP, ANION, EGFR1 #### [address] [address] Hemoglobin (Bld) [Mass/Vol] 8.9 gm/dl Low 12.0-16.0 [facility] Comment on above: Performed By: #### C BCWD, BMP, ANION, EGFR1 #### [address] [address] IMMATURE GRANS (IG) 0.5 % Normal [facility] Comment on above: Performed By: #### C BCWD, BMP, ANION, EGFR1 #### [address] [address] Lymphocytes (Bld) [#/Vol] 1.4 thou/mm3 Normal 1.0-4.8 [facility] Comment on above: Performed By: #### C BCWD, BMP, ANION, EGFR1 #### [address] [address] Lymphocytes/100 WBC (Bld) 14.7 % Normal [facility] Comment on above: Performed By: #### C BCWD, BMP, ANION, EGFR1 #### [address] [address] MCH (RBC) [Entitic mass] 29.5 pg Normal 26.0-33.0 [facility] Comment on above: Performed By: #### C BCWD, BMP, ANION, EGFR1 #### [address] [address] MCHC (RBC) [Mass/Vol] 29.4 gm/dl Low 32.2-35.5 [facility] Comment on above: Performed By: #### C BCWD, BMP, ANION, EGFR1 #### [address] [address] MCV (RBC) [Entitic vol] 100.3 fL High 81.0-99.0 [facility] Comment on above: Performed By: #### C BCWD, BMP, ANION, EGFR1 #### [address] [address] Monocytes (Bld) [#/Vol] 0.9 thou/mm3 Normal 0.4-1.3 [facility] Comment on above: Performed By: #### C BCWD, BMP, ANION, EGFR1 #### [address] [address] Monocytes/100 WBC (Bld) 9.6 % Normal [facility] Comment on above: Performed By: #### C BCWD, BMP, ANION, EGFR1 #### [address] [address] Neutrophils/100 WBC (Bld) 74.3 % Normal [facility] Comment on above: Performed By: #### C BCWD, BMP, ANION, EGFR1 #### [facility] [email or web address] [address] [address] Nucleated RBC/100 WBC (Bld) [Ratio] 0 /100 wbc Normal [facility] Comment on above: Performed By: #### C BCWD, BMP, ANION, EGFR1 #### [email or web address] [address] [place] [address] Platelet mean volume (Bld) [Entitic vol] 9.5 fL Normal 9.4-12.4 [facility] Comment on above: Performed By: #### C BCWD, BMP, ANION, EGFR1 #### [address] [address] Platelets (Bld) [#/Vol] 445 thou/mm3 High 130-400 [facility] Comment on above: Performed By: #### C BCWD, BMP, ANION, EGFR1 #### [address] [address] RBC (Bld) [#/Vol] 3.02 mill/mm3 Low 4.20-5.40 [facility] Comment on above: Performed By: #### C BCWD, BMP, ANION, EGFR1 #### [address] [address] RDW-SD 57.2 fL High 35.0-45.0 [facility] Comment on above: Performed By: #### C BCWD, BMP, ANION, EGFR1 #### [address] [address] WBC (Bld) [#/Vol] 9.7 thou/mm3 Normal 4.8-10.8 [facility] Comment on above: Performed By: #### C BCWD, BMP, ANION, EGFR1 #### [address] [address] GFR, ESTIMATEDon 05-11-2020 GFR/1.73 sq M.predicted MDRD (S/P/Bld) [Vol rate/Area] 47 ml/min/1.73m2 Abnormal [facility] Comment on above: Result Comment: Aris pelaez [...] #### C BCWD, BMP, ANION, EGFR1 #### [address] [address] Glomerular Filtration Rate, Estimatedon 05-11-2020 Est, Glom Filt Rate 47 Abnormal ml/min/1 .73 m2 [place] Comment on above: Stage Description GF [...] Vol. 139 (2) pg 137-147[place] [address] Otheron 05-11-2020 Interpretation and review of laboratory results Abnormal [place] AER/ANAEROBIC CULTUREon 04-27 AER/ANAEROBIC CULTURE MICROBIOLOGY REPOR T [facility], [address] [place] [address], [address] PATIENT: JESÚS NOLAN LOCATION: [address] [place] [address] : 1935 AGE: 84 SEX: F ADM: 05/10/20 Att. Physician: CHELE LAGOS Order Id: [id number] Req. Physician: CHELE LAGOS Source: tissue Site: [...] 8 h 5-7 >=100 Trimethoprim/Vargas <=20 S [id number]/800mgSMX q 12h 1-2TMP/[id number]/ 97SM IV 160mgTMP/800mgSMX q 8 h9TMP/105 SMX [...] 8 h 5-7 >=100 Trimethoprim/Vargas <=20 S [id number]/800mgSMX q 12h 1-2TMP/[id number]/ 97SM IV 160mgTMP/800mgSMX q 8 h9TMP/105 SMX [...] liver disease consult PDR or pharmacist. Normal [facility] COVID-19on 05-10-2020 COVID-19 BY RT-PCR NOT DETECTED Normal NOT DETECT Ana Laura frederick [facility] Comment on above: Result Comment: This test [...] #### C BCWD, BMP, ANION, EGFR1 #### [facility] [address] [place] [address] SARS-CoV-2, PCR NOT DETECTED NOT DETECT [place] Comment on above: This test has [...] or revoked sooner. METHODOLOGY: RT-PCR Performed at [email or web address] [address] [place] [address] TYPE AND SCREENon 05-10-2020 ABO A [place] Rh Factor Positive [place] TYPE AND SCREEN CAPTUREon ABO CAPTURE A Normal [facility] Comment on above: Performed By: #### C BCWD, BMP, ANION, EGFR1 #### [facility] [address] [place] [address] INDIRECT AUTUMN CAPTURE Negative Normal [facility] Comment on above: Performed By: #### C BCWD, BMP, ANION, EGFR1 #### [facility] [address] [place] [address] RH CAPTURE (2 D CLONES) Positive Normal [facility] Comment on above: Performed By: #### C BCWD, BMP, ANION, EGFR1 #### [facility] [address] [place] [address] XR HIP LEFT (2-3 VIEWS)on XR HIP [...] Benson Edwards MD 05/10/20 Final result Normal [facility] [place], [place] Incoming Radiant Results From [employer] - 05/10/2020 3:32 PM EDT PROCEDURE: XR [...] Dr Benson Edwards on 05/10[facility]2020 3[facility] [place] [facility]ED[facility]: XR HIP LE FT (2-3 VIEWS) [...] of the arthroplasty likely related to surgery. [employer] [place], [employer] Status post left tot al hip arthroplasty. This report has been created using voice recognition software. It may contain minor errors which are inherent in voice recognition technology. Final report electronically signed by Dr Benson Edwards on 05/10/2020 3:30 PM [place] Basic Metabolic Panelon 04-27 Anion gap [Moles/Vol] 10 mmol/L 9 - 17 mmol/L [place] Bun/Cre Ratio 20 [place] Calcium [Mass/Vol] 8.9 mg/dL 8.6 - 10. 4 mg/dL [place] Chloride [Moles/Vol] 105 mmol/L 98 - 10 7 mmol/L [place] CO2 [Moles/Vol] 27 mmol/L 20 - 31 mmol/L [place] Creatinine [Mass/Vol] 1.12 mg/dL High 0.5 - 0.9 mg/dL [place] GFR 56 mL/min Low >60 [place] GFR Non- 47 mL/min Low >60 [place] Glucose [Mass/Vol] 110 mg/dL High 70 - 99 mg/dL [place] Interpretation and review of laboratory results Abnormal [place] Potassium [Moles/Vol] 3.8 mmol/L 3.7 - 5.3 mmol/L [place] Sodium [Moles/Vol] 142 mmol/L 135 - 144 mmol/L [place] Urea nitrogen [Mass/Vol] 22 mg/dL 8 - 23 mg/dL [place] CBCon 05-09-2020 Erythrocyte distribution width (RBC) [Ratio] 15.5 % High 11.8 - 14.4 % [place] Hematocrit (Bld) [Volume fraction] 34.3 % Low 36.3 - 47.1 % [place] Hemoglobin (Bld) [Mass/Vol] 10.2 g/dL Low 11.9 - 15.1 g/dL [place] Interpretation and review of laboratory results Abnormal [place] MCH (RBC) [Entitic mass] 29.4 pg 25. 2 - 33.5 pg [place] MCHC (RBC) [Mass/Vol] 29.7 g/dL 28.4 - 34.8 g/dL [place] MCV (RBC) [Entitic vol] 98.8 fL 82.6 - 102.9 fL [place] Platelet mean volume (Bld) [Entitic vol] 9.4 fL 8.1 - 13.5 fL [place] Platelets (Bld) [#/Vol] 512 10*3/uL High [place] RBC (Bld) [#/Vol] 3.47 10*6/uL Low 3.95 - 5.1 1 m/uL [place] WBC (Bld) [#/Vol] 0.0 10*3/uL 0.0 per 10 0 WBC [place] WBC (Bld) [#/Vol] 8.6 10*3/uL [place] Metabolic Panelon 05-09-2020 GFR/1.73 sq M predicted among non-blacks MDRD (S/P/Bld) [Vol rate/Area] [place] Comment on above: Stage 1: Some [...] body mass. Additional eGFR calculator available at: http://www.[employer]/multiple_crcl_2012.htm Microscopic Urinalysison Amorphous, UA NOT REPORTED None [place] Bacteria, UA 2+ Abnormal None [place] Casts UA NOT REPORTED /LPF [place] Crystals, UA NOT REPORTED None /HPF [place] Epithelial Cells UA 0 TO 2 [place] Interpretation and review of laboratory results Abnormal [place] Mucus, UA NOT REPORTED None [place] Other Observations UA NOT REPORTED NOT REQ. M [place] RBC (U) [#/Vol] 5 TO 10 [place] Renal Epithelial, UA 0 TO 2 0 /HPF [place] Trichomonas, UA NOT REPORTED None [place] WBC, UA 50 TO 100 [place] Yeast, UA NOT REPORTED None [place] - [place] Urinalysison 05-08-2020 Bilirubin Urine Negative NEGATIVE [place] Color, UA YELLOW YELLOW [place] Glucose, Ur Negative NEGATIVE [place] Interpretation and review of laboratory results Abnormal [place] Ketones Ql (U) Negative NEGATIVE [place] Leukocyte esterase Test strip Ql (U) MODERATE Abnormal NEGATIVE [place] Nitrite, Urine Negative NEGATIVE [place] pH, UA 6.5 [place] Protein (U) [Mass/Vol] TRACE Abnormal NEGATIVE [place] Specific [place], UA 1.020 [place] Turbidity UA SLIGHTLY CLOUDY Abnormal CLEAR [place] Urinalysis Comments NOT REPORTED [place] Urine Hgb 2+ Abnormal NEGATIVE [place] Urobilinogen, Urine Normal Normal [place] Basic Metabolic Panelon 08 Anion gap [Moles/Vol] 17 mmol/L 9 - 17 mmol/L [place] Bun/Cre Ratio 20 [place] Calcium [Mass/Vol] 9.2 mg/dL 8.6 - 10. 4 mg/dL [place] Chloride [Moles/Vol] 97 mmol/L Low 98 - 10 7 mmol/L [place] CO2 [Moles/Vol] 23 mmol/L 20 - 31 mmol/L [place] Creatinine [Mass/Vol] 1.29 mg/dL High 0.5 - 0.9 mg/dL [place] GFR 48 mL/min Low >60 [place] GFR Non- 40 mL/min Low >60 [place] Glucose [Mass/Vol] 209 mg/dL High 70 - 99 mg/dL [place] Interpretation and review of laboratory results Abnormal [place] Potassium [Moles/Vol] 3.7 mmol/L 3.7 - 5.3 mmol/L [place] Sodium [Moles/Vol] 137 mmol/L 135 - 144 mmol/L [place] Urea nitrogen [Mass/Vol] 26 mg/dL High 8 - 23 mg/dL [place] CBC Auto Differentialon 0 Basophils (Bld) [#/Vol] 10*3/uL [place] Basophils/100 WBC (Bld) 0 % 0 - 2 % [place] Differential Type NOT REPORTED [place] Eosinophils (Bld) [#/Vol] 0.17 10*3/uL [place] Eosinophils/100 WBC (Bld) 2 % 1 - 4 % [place] Erythrocyte distribution width (RBC) [Ratio] 15.3 % High 11.8 - 14.4 % [place] Hematocrit (Bld) [Volume fraction] 36.5 % 36.3 - 47.1 % [place] Hemoglobin (Bld) [Mass/Vol] 11.2 g/dL Low 11.9 - 15.1 g/dL [place] Immature granulocytes (Bld) [#/Vol] 1 % High 0 [place] Immature granulocytes (Bld) [#/Vol] 0.05 10*3/uL [place] Interpretation and review of laboratory results Abnormal [place] Lymphocytes (Bld) [#/Vol] 2.30 10*3/uL [place] Lymphocytes/100 WBC (Bld) 21 % Low 24 - 43 % [place] MCH (RBC) [Entitic mass] 30.3 pg 25. 2 - 33.5 pg [place] MCHC (RBC) [Mass/Vol] 30.7 g/dL 28.4 - 34.8 g/dL [place] MCV (RBC) [Entitic vol] 98.6 fL 82.6 - 102.9 fL [place] Monocytes (Bld) [#/Vol] 1.01 10*3/uL [place] Monocytes/100 WBC (Bld) 9 % 3 - 12 % [place] Platelet mean volume (Bld) [Entitic vol] 9.7 fL 8.1 - 13.5 fL [place] Platelets (Bld) [#/Vol] NOT REPORTED [place] Platelets (Bld) [#/Vol] 481 10*3/uL High [place] RBC (Bld) [#/Vol] 3.70 10*6/uL Low 3.95 - 5.1 1 m/uL [place] RBC morphology finding Nom (Bld) NOT REPORTED [place] Segmented neutrophils/100 WBC (Bld) 67 % High 36 - 65 % [place] Segs Absolute 7.38 [place] WBC (Bld) [#/Vol] 10.9 10*3/uL [place] WBC (Bld) [#/Vol] 0.0 10*3/uL 0.0 per 10 0 WBC [place] WBC Morphology NOT REPORTED [place] Metabolic Panelon 05-03-2020 GFR/1.73 sq M predicted among non-blacks MDRD (S/P/Bld) [Vol rate/Area] [place], [place] Comment on above: Stage 1: Some [...] body mass. Additional eGFR calculator available at: [email or web address] CBC Auto Differentialon 03-27 Basophils (Bld) [#/Vol] 0.00 10*3/uL [place] Basophils/100 WBC (Bld) 0 % 0 - 2 % [place], [place] Differential Type NOT REPORTED [place] Eosinophils (Bld) [#/Vol] 0.00 10*3/uL [place] Eosinophils/100 WBC (Bld) 0 % Low 1 - 4 % [place] Erythrocyte distribution width (RBC) [Ratio] 15.9 % High 11.8 - 14.4 % [place] Hematocrit (Bld) [Volume fraction] 36.3 % 36.3 - 47.1 % [place] Hemoglobin (Bld) [Mass/Vol] 11.0 g/dL Low 11.9 - 15.1 g/dL [place] Immature granulocytes (Bld) [#/Vol] 4 % High 0 [place] Immature granulocytes (Bld) [#/Vol] 0.51 10*3/uL [place] Interpretation and review of laboratory results Abnormal [place] Lymphocytes (Bld) [#/Vol] 1.40 10*3/uL [place] Lymphocytes/100 WBC (Bld) 11 % Low 24 - 43 % [place] MCH (RBC) [Entitic mass] 30.1 pg 25. 2 - 33.5 pg [place] MCHC (RBC) [Mass/Vol] 30.3 g/dL 28.4 - 34.8 g/dL [place] MCV (RBC) [Entitic vol] 99.5 fL 82.6 - 102.9 fL [place] Monocytes (Bld) [#/Vol] 0.76 10*3/uL [place] Monocytes/100 WBC (Bld) 6 % 3 - 12 % [place] Morphology [place] (Bld) [Interp] Normal [place] Platelet mean volume (Bld) [Entitic vol] 10.0 fL 8.1 - 13.5 fL [place] Platelets (Bld) [#/Vol] NOT REPORTED [place] Platelets (Bld) [#/Vol] 613 10*3/uL [place] RBC (Bld) [#/Vol] 3.65 10*6/uL Low 3.95 - 5.1 1 m/uL [place] RBC morphology finding Nom (Bld) NOT REPORTED [place] Segmented neutrophils/100 WBC (Bld) 79 % High 36 - 65 % [place] Segs Absolute 10.03 High [place] WBC (Bld) [#/Vol] 0.0 10*3/uL 0.0 per 10 0 WBC [place] WBC (Bld) [#/Vol] 12.7 10*3/uL [place] WBC Morphology NOT REPORTED [place] Comprehensive Metabolic Pane riddhi 04-10-2020 Albumin [Mass/Vol] 2.4 g/dL Low 3.5 - 5.2 g/dL [place] Albumin/Globulin [Mass ratio] 0.8 {ratio} Low [place] ALP [Catalytic activity/Vol] 136 U/L High 35 - 104 U/L [place] ALT [Catalytic activity/Vol] 29 U/L 5 - 33 U/L [place] Anion gap [Moles/Vol] 11 mmol/L 9 - 17 mmol/L [place] AST [Catalytic activity/Vol] 20 U/L <32 [place] Bilirubin Ql (U) 0.20 mg/dL Low 0.3 - 1.2 mg/dL [place] Bun/Cre Ratio 20 [place] Calcium [Mass/Vol] 8.2 mg/dL Low 8.6 - 10. 4 mg/dL [place] Chloride [Moles/Vol] 100 mmol/L 98 - 10 7 mmol/L [place] CO2 [Moles/Vol] 25 mmol/L 20 - 31 mmol/L [place] Creatinine [Mass/Vol] 1.11 mg/dL High 0.5 - 0.9 mg/dL [place] GFR 57 mL/min Low >60 [place] GFR Non- 47 mL/min Low >60 [place] Glucose [Mass/Vol] 135 mg/dL High 70 - 99 mg/dL [place] Interpretation and review of laboratory results Abnormal [place] Potassium [Moles/Vol] 3.6 mmol/L Low 3.7 - 5.3 mmol/L [place] Protein [Mass/Vol] 5.6 g/dL Low 6.4 - 8.3 g/dL [place] Sodium [Moles/Vol] 136 mmol/L 135 - 144 mmol/L [place] Urea nitrogen [Mass/Vol] 22 mg/dL 8 - 23 mg/dL [place] Metabolic Panelon 04-10-2020 GFR/1.73 sq M predicted among non-blacks MDRD (S/P/Bld) [Vol rate/Area] [place] Comment on above: Stage 1: Some [...] body mass. Additional eGFR calculator available at: http://[email or web address]_[email or web address].htm Urinalysis with Microscopico n 04-10-2020 Amorphous, UA NOT REPORTED None [place] Bacteria, UA TRACE Abnormal None [place] Bilirubin Urine Negative NEGATIVE [place] Casts UA NOT REPORTED /LPF [place] Color, UA YELLOW YELLOW [place] Crystals, UA NOT REPORTED None /HPF [place] Epithelial Cells UA 10 TO 20 [place] Glucose, Ur Negative NEGATIVE [place] Interpretation and review of laboratory results Abnormal [place] Ketones Ql (U) Negative NEGATIVE [place] Leukocyte esterase Test strip Ql (U) Negative NEGATIVE [place] Mucus, UA NOT REPORTED None [place] Nitrite, Urine Negative NEGATIVE [place] Other Observations UA NOT REPORTED NOT REQ. M [place] pH, UA 7.0 [place] Protein (U) [Mass/Vol] Negative NEGATIVE [place] RBC (U) [#/Vol] 0 TO 2 [place] Renal Epithelial, UA NOT REPORTED 0 /HPF [place] Specific [place], UA 1.015 [place] Trichomonas, UA NOT REPORTED None [place] Turbidity UA CLEAR CLEAR [place] Urinalysis Comments NOT REPORTED [place] Urine Hgb Negative NEGATIVE [place] Urobilinogen, Urine Normal Normal [place] WBC, UA 0 TO 2 [place] Yeast, UA NOT REPORTED None [place] CBC auto differentialon 03-27 Basophils (Bld) [#/Vol] 0.04 10*3/uL [place] Basophils/100 WBC (Bld) 0 % 0 - 2 % [place] Differential Type NOT REPORTED [place] Eosinophils (Bld) [#/Vol] 0.24 10*3/uL [place] Eosinophils/100 WBC (Bld) 2 % 1 - 4 % [place] Erythrocyte distribution width (RBC) [Ratio] 15.6 % High 11.8 - 14.4 % [place] Hematocrit (Bld) [Volume fraction] 29.2 % Low 36.3 - 47.1 % [place] Hemoglobin (Bld) [Mass/Vol] 8.8 g/dL Low 11.9 - 15.1 g/dL [place] Immature granulocytes (Bld) [#/Vol] 0.49 10*3/uL [place] Immature granulocytes (Bld) [#/Vol] 3 % High 0 [place] Interpretation and review of laboratory results Abnormal [place] Lymphocytes (Bld) [#/Vol] 1.99 10*3/uL [place] Lymphocytes/100 WBC (Bld) 13 % Low 24 - 43 % [place] MCH (RBC) [Entitic mass] 30.1 pg 25. 2 - 33.5 pg [place] MCHC (RBC) [Mass/Vol] 30.1 g/dL 28.4 - 34.8 g/dL [place] MCV (RBC) [Entitic vol] 100.0 fL 82.6 - 102.9 fL [place] Monocytes (Bld) [#/Vol] 1.02 10*3/uL [place] Monocytes/100 WBC (Bld) 7 % 3 - 12 % [place] Platelet mean volume (Bld) [Entitic vol] 10.7 fL 8.1 - 13.5 fL [place] Platelets (Bld) [#/Vol] NOT REPORTED [place] Platelets (Bld) [#/Vol] 444 10*3/uL [place] RBC (Bld) [#/Vol] 2.92 10*6/uL Low 3.95 - 5.1 1 m/uL [place] RBC morphology finding Nom (Bld) NOT REPORTED [place] Segmented neutrophils/100 WBC (Bld) 75 % High 36 - 65 % [place] Segs Absolute 11.50 High [place] WBC (Bld) [#/Vol] 0.0 10*3/uL 0.0 per 10 0 WBC [place] WBC (Bld) [#/Vol] 15.3 10*3/uL [place] WBC Morphology NOT REPORTED [place] Comprehensive metabolic pane riddhi 04-06-2020 Albumin [Mass/Vol] 2.1 g/dL Low 3.5 - 5.2 g/dL [place] Albumin/Globulin [Mass ratio] 0.7 {ratio} Low [place] ALP [Catalytic activity/Vol] 139 U/L High 35 - 104 U/L [place] ALT [Catalytic activity/Vol] 67 U/L High 5 - 33 U/L [place] Anion gap [Moles/Vol] 11 mmol/L 9 - 17 mmol/L [place] AST [Catalytic activity/Vol] 61 U/L High <32 [place] Bilirubin Ql (U) 0.34 mg/dL 0.3 - 1.2 mg/dL [place] Bun/Cre Ratio 20 [place] Calcium [Mass/Vol] 8.2 mg/dL Low 8.6 - 10. 4 mg/dL [place] Chloride [Moles/Vol] 101 mmol/L 98 - 10 7 mmol/L [place] CO2 [Moles/Vol] 25 mmol/L 20 - 31 mmol/L [place] Creatinine [Mass/Vol] 1.12 mg/dL High 0.5 - 0.9 mg/dL [place] GFR 56 mL/min Low >60 [place] GFR Non- 47 mL/min Low >60 [place] Glucose [Mass/Vol] 149 mg/dL High 70 - 99 mg/dL [place] Interpretation and review of laboratory results Abnormal [place] Potassium [Moles/Vol] 3.5 mmol/L Low 3.7 - 5.3 mmol/L [place] Protein [Mass/Vol] 5.3 g/dL Low 6.4 - 8.3 g/dL [place] Sodium [Moles/Vol] 137 mmol/L 135 - 144 mmol/L [place] Urea nitrogen [Mass/Vol] 22 mg/dL 8 - 23 mg/dL [place] Metabolic Panelon 04-06-2020 GFR/1.73 sq M predicted among non-blacks MDRD (S/P/Bld) [Vol rate/Area] [place] Comment on above: Stage 1: Some [...] body mass. Additional eGFR calculator available at: http://www.[employer]/multiple_crcl_2012.htm CBC auto differentialon 03-27 Basophils (Bld) [#/Vol] 10*3/uL [place] Basophils/100 WBC (Bld) 0 % 0 - 2 % [place] Differential Type NOT REPORTED [place] Eosinophils (Bld) [#/Vol] 0.05 10*3/uL [place] Eosinophils/100 WBC (Bld) 0 % Low 1 - 4 % [place] Erythrocyte distribution width (RBC) [Ratio] 15.3 % High 11.8 - 14.4 % [place] Hematocrit (Bld) [Volume fraction] 32.0 % Low 36.3 - 47.1 % [place] Hemoglobin (Bld) [Mass/Vol] 10.0 g/dL Low 11.9 - 15.1 g/dL [place] Immature granulocytes (Bld) [#/Vol] 2 % High 0 [place] Immature granulocytes (Bld) [#/Vol] 0.40 10*3/uL [place] Interpretation and review of laboratory results Abnormal [place] Lymphocytes (Bld) [#/Vol] 1.67 10*3/uL [place] Lymphocytes/100 WBC (Bld) 9 % Low 24 - 43 % [place] MCH (RBC) [Entitic mass] 30.8 pg 25. 2 - 33.5 pg [place] MCHC (RBC) [Mass/Vol] 31.3 g/dL 28.4 - 34.8 g/dL [place] MCV (RBC) [Entitic vol] 98.5 fL 82.6 - 102.9 fL [place] Monocytes (Bld) [#/Vol] 1.38 10*3/uL [place] Monocytes/100 WBC (Bld) 8 % 3 - 12 % [place] Platelet mean volume (Bld) [Entitic vol] 10.7 fL 8.1 - 13.5 fL [place] Platelets (Bld) [#/Vol] 497 10*3/uL [place] Platelets (Bld) [#/Vol] NOT REPORTED [place] RBC (Bld) [#/Vol] 3.25 10*6/uL Low 3.95 - 5.1 1 m/uL [place] RBC morphology finding Nom (Bld) NOT REPORTED [place] Segmented neutrophils/100 WBC (Bld) 81 % High 36 - 65 % [place] Segs Absolute 14.36 High [place] WBC (Bld) [#/Vol] 17.9 10*3/uL [place] WBC (Bld) [#/Vol] 0.0 10*3/uL 0.0 per 10 0 WBC [place] WBC Morphology NOT REPORTED [place] COVID-19on 04-05-2020 SARS-CoV-2 [place] SARS-CoV-2, PCR [place] SARS-CoV-2, Rapid Not Detected Not Detected [place] Comment on above: Rapid NAAT: The [...] management decisions. Fact sheet for Healthcare Providers: https://www.fda.gov/media/380395/download Fact sheet for Patients: https://www.fda.gov/media/717848/download Methodology: Isothermal Nucleic Acid Amplification Source .NASOPHARYNGEAL SWAB [place] Comprehensive metabolic pane riddhi 04-05-2020 Albumin [Mass/Vol] 2.5 g/dL Low 3.5 - 5.2 g/dL [place] Albumin/Globulin [Mass ratio] 0.7 {ratio} Low [place] ALP [Catalytic activity/Vol] 137 U/L High 35 - 104 U/L [place] ALT [Catalytic activity/Vol] 76 U/L High 5 - 33 U/L [place] Anion gap [Moles/Vol] 16 mmol/L 9 - 17 mmol/L [place] AST [Catalytic activity/Vol] 73 U/L High <32 [place] Bilirubin Ql (U) 0.41 mg/dL 0.3 - 1.2 mg/dL [place] Bun/Cre Ratio 21 [place] Calcium [Mass/Vol] 8.4 mg/dL Low 8.6 - 10. 4 mg/dL [place] Chloride [Moles/Vol] 102 mmol/L 98 - 10 7 mmol/L [place] CO2 [Moles/Vol] 24 mmol/L 20 - 31 mmol/L [place] Creatinine [Mass/Vol] 1.16 mg/dL High 0.5 - 0.9 mg/dL [place] GFR 54 mL/min Low >60 [place] GFR Non- 45 mL/min Low >60 [place] Glucose [Mass/Vol] 128 mg/dL High 70 - 99 mg/dL [place] Interpretation and review of laboratory results Abnormal [place] Potassium [Moles/Vol] 3.3 mmol/L Low 3.7 - 5.3 mmol/L [place] Protein [Mass/Vol] 6.3 g/dL Low 6.4 - 8.3 g/dL [place] Sodium [Moles/Vol] 142 mmol/L 135 - 144 mmol/L [place] Urea nitrogen [Mass/Vol] 24 mg/dL High 8 - 23 mg/dL [place] Metabolic Panelon 04-05-2020 GFR/1.73 sq M predicted among non-blacks MDRD (S/P/Bld) [Vol rate/Area] [place] Comment on above: Stage 1: Some [...] body mass. Additional eGFR calculator available at: http://www.[employer]/multiple_crcl_2012.htm Basic Metabolic Panel w/ Ref tosha to MGon 04-03-2020 Anion gap [Moles/Vol] 18 mmol/L High 9 - 17 mmol/L [place] Bun/Cre Ratio 26 [place] Calcium [Mass/Vol] 9.0 mg/dL 8.6 - 10. 4 mg/dL [place] Chloride [Moles/Vol] 96 mmol/L Low 98 - 10 7 mmol/L [place] CO2 [Moles/Vol] 26 mmol/L 20 - 31 mmol/L [place] Creatinine [Mass/Vol] 1.17 mg/dL High 0.5 - 0.9 mg/dL [place] GFR 54 mL/min Low >60 [place] GFR Non- 44 mL/min Low >60 [place] Glucose [Mass/Vol] 157 mg/dL High 70 - 99 mg/dL [place] Interpretation and review of laboratory results Abnormal [place] Potassium [Moles/Vol] 3.5 mmol/L Low 3.7 - 5.3 mmol/L [place] Sodium [Moles/Vol] 140 mmol/L 135 - 144 mmol/L [place] Urea nitrogen [Mass/Vol] 30 mg/dL High 8 - 23 mg/dL [place] CBCon 04-03-2020 Erythrocyte distribution width (RBC) [Ratio] 14.9 % High 11.8 - 14.4 % [place] Hematocrit (Bld) [Volume fraction] 34.0 % Low 36.3 - 47.1 % [place] Hemoglobin (Bld) [Mass/Vol] 10.8 g/dL Low 11.9 - 15.1 g/dL [place] Interpretation and review of laboratory results Abnormal [place] MCH (RBC) [Entitic mass] 30.9 pg 25. 2 - 33.5 pg [place] MCHC (RBC) [Mass/Vol] 31.8 g/dL 28.4 - 34.8 g/dL [place] MCV (RBC) [Entitic vol] 97.4 fL 82.6 - 102.9 fL [place] Platelet mean volume (Bld) [Entitic vol] 10.6 fL 8.1 - 13.5 fL [place] Platelets (Bld) [#/Vol] 455 10*3/uL [place] RBC (Bld) [#/Vol] 3.49 10*6/uL Low 3.95 - 5.1 1 m/uL [place] WBC (Bld) [#/Vol] 17.6 10*3/uL [place] WBC (Bld) [#/Vol] 0.0 10*3/uL 0.0 per 10 0 WBC [place] EKG 12 Leadon 04-03-2020 Atrial Rate 78 BPM [place] P [place] 90 degrees [place] P-R Interval 174 ms [place] Q-T Interval 426 ms [place] QRS Duration 114 ms [place] QTc Calculation (Bazett) 485 ms [place] R [place] -27 degrees [place] T [place] 61 degrees [place] Urea nitrogen [Mass/Vol] Sinus rhythm wi th Premature atrial complexes Incomplete left bundle branch block Left ventricular hypertrophy with repolarization abnormality Abnormal ECG When compared with ECG of 02-APR-2020 14:43, Premature atrial complexes are now Present Minimal criteria for Septal infarct are no longer Present Confirmed by Sadie GRACE MD ([id number]) on 04/03/2020 7:17:15 AM [place] Ventricular Rate 78 BPM [place], Mhpn Incoming E kg Results From [facility] [place] - 04/03/2020 7:17 AM EDT Sinus rhythm with Premature atrial complexes Incomplete left bundle branch block Left ventricular hypertrophy with repolarization abnormality Abnormal ECG When compared with ECG of 02-APR-2020 14:43, Premature atrial complexes are now Present Minimal criteria for Septal infarct are no longer Present Confirmed by Sadie GRACE MD ([id number]) on 04/03/2020 7:17:15 AM [place] Lactic acid, plasmaon 2019 Lactate [Moles/Vol] 1.9 mmol/L 0.5 - 2. 2 mmol/L [place] Lactic Acid, Whole Blood NOT REPORTED 0.7 - 2.1 mmol/L [place] Magnesiumon 04-03-2020 Magnesium [Mass/Vol] 1.9 mg/dL 1.6 - 2 .6 mg/dL [place] Metabolic Panelon 04-03-2020 GFR/1.73 sq M predicted among non-blacks MDRD (S/P/Bld) [Vol rate/Area] [place] Comment on above: Stage 1: Some [...] body mass. Additional eGFR calculator available at: http://www.[employer]/multiple_crcl_2012.htm Basic Metabolic Panelon Anion gap [Moles/Vol] 16 mmol/L 9 - 17 mmol/L [place] Bun/Cre Ratio 26 [place] Calcium [Mass/Vol] 8.9 mg/dL 8.6 - 10. 4 mg/dL [place] Chloride [Moles/Vol] 92 mmol/L Low 98 - 10 7 mmol/L [place] CO2 [Moles/Vol] 29 mmol/L 20 - 31 mmol/L [place] Creatinine [Mass/Vol] 1.41 mg/dL High 0.5 - 0.9 mg/dL [place] GFR 43 mL/min Low >60 [place] GFR Non- 36 mL/min Low >60 [place] Glucose [Mass/Vol] 200 mg/dL High 70 - 99 mg/dL [place] Interpretation and review of laboratory results Abnormal [place] Potassium [Moles/Vol] 2.9 mmol/L Critically low 3.7 - 5.3 mmol/L [place] Sodium [Moles/Vol] 137 mmol/L 135 - 144 mmol/L [place] Urea nitrogen [Mass/Vol] 37 mg/dL High 8 - 23 mg/dL [place] Basic Metabolic Panel w/ Ref tosha to MGon 04-02-2020 Anion gap [Moles/Vol] 15 mmol/L 9 - 17 mmol/L [place] Bun/Cre Ratio 26 High [place] Calcium [Mass/Vol] 8.6 mg/dL 8.6 - 10. 4 mg/dL [place] Chloride [Moles/Vol] 96 mmol/L Low 98 - 10 7 mmol/L [place] CO2 [Moles/Vol] 28 mmol/L 20 - 31 mmol/L [place] Creatinine [Mass/Vol] 1.33 mg/dL High 0.5 - 0.9 mg/dL [place] GFR 46 mL/min Low >60 [place] GFR Non- 38 mL/min Low >60 [place] Glucose [Mass/Vol] 149 mg/dL High 70 - 99 mg/dL [place] Interpretation and review of laboratory results Abnormal [place] Potassium [Moles/Vol] 3.4 mmol/L Low 3.7 - 5.3 mmol/L [place] Sodium [Moles/Vol] 139 mmol/L 135 - 144 mmol/L [place] Urea nitrogen [Mass/Vol] 35 mg/dL High 8 - 23 mg/dL [place] CBC Auto Differentialon 07-0 Basophils (Bld) [#/Vol] 10*3/uL [place] Basophils/100 WBC (Bld) 0 % 0 - 2 % [place] Differential Type NOT REPORTED [place] Eosinophils (Bld) [#/Vol] 10*3/uL [place] Eosinophils/100 WBC (Bld) 0 % Low 1 - 4 % [place] Erythrocyte distribution width (RBC) [Ratio] 14.7 % High 11.8 - 14.4 % [place] Hematocrit (Bld) [Volume fraction] 32.6 % Low 36.3 - 47.1 % [place] Hemoglobin (Bld) [Mass/Vol] 10.5 g/dL Low 11.9 - 15.1 g/dL [place] Immature granulocytes (Bld) [#/Vol] 1 % High 0 [place] Immature granulocytes (Bld) [#/Vol] 0.15 10*3/uL [place] Interpretation and review of laboratory results Abnormal [place] Lymphocytes (Bld) [#/Vol] 1.25 10*3/uL [place] Lymphocytes/100 WBC (Bld) 7 % Low 24 - 43 % [place] MCH (RBC) [Entitic mass] 30.7 pg 25. 2 - 33.5 pg [place] MCHC (RBC) [Mass/Vol] 32.2 g/dL 28.4 - 34.8 g/dL [place] MCV (RBC) [Entitic vol] 95.3 fL 82.6 - 102.9 fL [place] Monocytes (Bld) [#/Vol] 1.50 10*3/uL [place] Monocytes/100 WBC (Bld) 9 % 3 - 12 % [place] Platelet mean volume (Bld) [Entitic vol] 10.8 fL 8.1 - 13.5 fL [place] Platelets (Bld) [#/Vol] NOT REPORTED [place] Platelets (Bld) [#/Vol] 401 10*3/uL [place] RBC (Bld) [#/Vol] 3.42 10*6/uL Low 3.95 - 5.1 1 m/uL [place] RBC morphology finding Nom (Bld) NOT REPORTED [place] Segmented neutrophils/100 WBC (Bld) 83 % High 36 - 65 % [place] Segs Absolute 14.35 High [place] WBC (Bld) [#/Vol] 17.3 10*3/uL [place] WBC (Bld) [#/Vol] 0.0 10*3/uL 0.0 per 10 0 WBC [place] WBC Morphology NOT REPORTED [place] EKG 12 Leadon 04-02-2020 Atrial Rate 73 BPM [place] P [place] 90 degrees [place] P-R Interval 192 ms [place] Q-T Interval 430 ms [place] QRS Duration 108 ms [place] QTc Calculation (Bazett) 473 ms [place] R [place] -33 degrees [place] T [place] 50 degrees [place] Ventricular Rate 73 BPM [place] Normal sinus rhythm Left axis deviation Pulmonary disease pattern Left ventricular hypertrophy with repolarization abnormality Cannot rule out Septal infarct (cited on or before 30-JUN-2001) Abnormal ECG When compared with ECG of 11-NOV-2011 11:12, QRS duration has increased Questionable change in initial forces of Anterior leads Confirmed by Sadie GRACE MD ([id number]) on 04/02/2020 4:19:24 PM [place], Mhpn Incoming E kg Results From [place] - 04/02/2020 4:19 PM EDT Normal sinus rhythm Left axis deviation Pulmonary disease pattern Left ventricular hypertrophy with repolarization abnormality Cannot rule out Septal infarct (cited on or before 30-JUN-2001) Abnormal ECG When compared with ECG of 11-NOV-2011 11:12, QRS duration has increased Questionable change in initial forces of Anterior leads Confirmed by Sadie GRACE MD ([id number]) on 04/02/2020 4:19:24 PM [place] Magnesiumon 04-02-2020 Magnesium [Mass/Vol] 2.0 mg/dL 1.6 - 2 .6 mg/dL [place] Metabolic Panelon 04-02-2020 GFR/1.73 sq M predicted among non-blacks MDRD (S/P/Bld) [Vol rate/Area] [place] Comment on above: Average GFR for 70 o r more years old: 75 mL/min/1.73sq m Chronic Kidney Disease: <60 mL/min/1.73sq m Kidney failure: <15 mL/min/1.73sq m eGFR calculated using average adult body mass. Additional eGFR calculator available at: http://www.[employer]/multiple_crcl_2012.htm Stage 1: Some kidney damage normal GFR Stage 2: Mild kidney damage GFR 60-89 Stage 3: Moderate kidney damage GFR 30-59 Stage 4: Severe kidney damage GFR 15-29 Stage 5: Severe kidney damage GFR <15 ESRD - chronic treatment by dialysis or transplant GFR/1.73 sq M predicted among non-blacks MDRD (S/P/Bld) [Vol rate/Area] [place] Comment on above: Average GFR for 70 o r more years old: 75 mL/min/1.73sq m Chronic Kidney Disease: <60 mL/min/1.73sq m Kidney failure: <15 mL/min/1.73sq m eGFR calculated using average adult body mass. Additional eGFR calculator available at: http://www.[employer]/multiple_crcl_2012.htm Stage 1: Some kidney damage normal GFR Stage 2: Mild kidney damage GFR 60-89 Stage 3: Moderate kidney damage GFR 30-59 Stage 4: Severe kidney damage GFR 15-29 Stage 5: Severe kidney damage GFR <15 ESRD - chronic treatment by dialysis or transplant Troponinon 04-02-2020 Interpretation and review of laboratory results Abnormal [place] Troponin I.cardiac [Mass/Vol] NOT REPORTED [place] Troponin T.cardiac [Mass/Vol] NOT REPORTED <0.03 ng/mL [place] Troponin, High Sensitivity 44 ng/L High 0 - 14 ng/L [place] Comment on above: High Sensitivity Troponin values cannot be compared with other Troponin methodologies. Patients with high levels of Biotin oral intake (i.e >5mg/day) may have falsely decreased Troponin levels. Samples collected within 8 hours of biotin intake may require additional information for diagnosis. Interpretation and review of laboratory results Abnormal [place] Troponin I.cardiac [Mass/Vol] NOT REPORTED [place] Troponin T.cardiac [Mass/Vol] NOT REPORTED <0.03 ng/mL [place] Troponin, High Sensitivity 47 ng/L High 0 - 14 ng/L [place] Comment on above: High Sensitivity Troponin values cannot be compared with other Troponin methodologies. Patients with high levels of Biotin oral intake (i.e >5mg/day) may have falsely decreased Troponin levels. Samples collected within 8 hours of biotin intake may require additional information for diagnosis. Urinalysis with Microscopico n 04-02-2020 Amorphous, UA NOT REPORTED None [place] Bacteria, UA 4+ Abnormal None [place] Bilirubin Urine Negative NEGATIVE [place] Casts UA NOT REPORTED /LPF [place] Color, UA YELLOW YELLOW [place] Crystals, UA NOT REPORTED None /HPF [place] Epithelial Cells UA 0 TO 2 [place] Glucose, Ur Negative NEGATIVE [place] Interpretation and review of laboratory results Abnormal [place] Ketones Ql (U) Negative NEGATIVE [place] Leukocyte esterase Test strip Ql (U) Negative NEGATIVE [place] Mucus, UA NOT REPORTED None [place] Nitrite, Urine Positive Abnormal NEGATIVE [place] Other Observations UA NOT REPORTED NOT REQ. [place] pH, UA 6.0 [place] Protein (U) [Mass/Vol] 1+ Abnormal NEGATIVE [place] RBC (U) [#/Vol] 0 TO 2 [place] Renal Epithelial, UA NOT REPORTED 0 /HPF [place] Specific [place], UA 1.025 High [place] Trichomonas, UA NOT REPORTED None [place] Turbidity UA SLIGHTLY CLOUDY Abnormal CLEAR [place] Urinalysis Comments NOT REPORTED [place] Urine Hgb 1+ Abnormal NEGATIVE [place] Urobilinogen, Urine Normal Normal [place] WBC, UA 2 TO 5 [place] Yeast, UA NOT REPORTED None [place] - [place] XR CHEST 1 VWon 04-02-2020 No acute cardiopulmonary disease. [place], Mhpn Incoming Radiant Results From [employer] - 04/02/2020 8:01 PM EDT EXAMINATION: ONE [...] osseous abnormality. IMPRESSION: No acute cardiopulmonary disease. [place] EXAMINATION: ONE XRA Y VIEW OF [...] edema. No pneumothorax. No acute osseous abnormality. [place] CBC Auto Differentialon 02-26 Basophils (Bld) [#/Vol] 10*3/uL [place] Basophils/100 WBC (Bld) 0 % 0 - 2 % [place] Differential Type NOT REPORTED [place] Eosinophils (Bld) [#/Vol] 0.07 10*3/uL [place] Eosinophils/100 WBC (Bld) 1 % 1 - 4 % [place] Erythrocyte distribution width (RBC) [Ratio] 14.1 % 11.8 - 14.4 % [place] Hematocrit (Bld) [Volume fraction] 35.7 % Low 36.3 - 47.1 % [place] Hemoglobin (Bld) [Mass/Vol] 11.1 g/dL Low 11.9 - 15.1 g/dL [place] Immature granulocytes (Bld) [#/Vol] 0.04 10*3/uL [place] Immature granulocytes (Bld) [#/Vol] 0 % 0 [place] Interpretation and review of laboratory results Abnormal [place] Lymphocytes (Bld) [#/Vol] 1.62 10*3/uL [place] Lymphocytes/100 WBC (Bld) 14 % Low 24 - 43 % [place] MCH (RBC) [Entitic mass] 31.5 pg 25. 2 - 33.5 pg [place] MCHC (RBC) [Mass/Vol] 31.1 g/dL 28.4 - 34.8 g/dL [place] MCV (RBC) [Entitic vol] 101.4 fL 82.6 - 102.9 fL [place] Monocytes (Bld) [#/Vol] 1.43 10*3/uL [place] Monocytes/100 WBC (Bld) 12 % 3 - 12 % [place] Platelet mean volume (Bld) [Entitic vol] 10.3 fL 8.1 - 13.5 fL [place] Platelets (Bld) [#/Vol] 245 10*3/uL [place] Platelets (Bld) [#/Vol] NOT REPORTED [place] RBC (Bld) [#/Vol] 3.52 10*6/uL Low 3.95 - 5.1 1 m/uL [place] RBC morphology finding Nom (Bld) NOT REPORTED [place] Segmented neutrophils/100 WBC (Bld) 73 % High 36 - 65 % [place] Segs Absolute 8.49 [place] WBC (Bld) [#/Vol] 0.0 10*3/uL 0.0 per 10 0 WBC [place] WBC (Bld) [#/Vol] 11.7 10*3/uL [place] WBC Morphology NOT REPORTED [place] Comprehensive Metabolic Pane riddhi 03-25-2020 Albumin [Mass/Vol] 3.3 g/dL Low 3.5 - 5.2 g/dL [place] Albumin/Globulin [Mass ratio] 1.1 {ratio} [place] ALP [Catalytic activity/Vol] 118 U/L High 35 - 104 U/L [place] ALT [Catalytic activity/Vol] 14 U/L 5 - 33 U/L [place] Anion gap [Moles/Vol] 14 mmol/L 9 - 17 mmol/L [place] AST [Catalytic activity/Vol] 15 U/L <32 [place] Bilirubin Ql (U) 0.39 mg/dL 0.3 - 1.2 mg/dL [place] Bun/Cre Ratio 17 [place] Calcium [Mass/Vol] 9.1 mg/dL 8.6 - 10. 4 mg/dL [place] Chloride [Moles/Vol] 101 mmol/L 98 - 10 7 mmol/L [place] CO2 [Moles/Vol] 27 mmol/L 20 - 31 mmol/L [place] Creatinine [Mass/Vol] 1.32 mg/dL High 0.5 - 0.9 mg/dL [place] GFR 47 mL/min Low >60 [place] GFR Non- 39 mL/min Low >60 [place] Glucose [Mass/Vol] 140 mg/dL High 70 - 99 mg/dL [place] Interpretation and review of laboratory results Abnormal [place] Potassium [Moles/Vol] 3.7 mmol/L 3.7 - 5.3 mmol/L [place] Protein [Mass/Vol] 6.2 g/dL Low 6.4 - 8.3 g/dL [place] Sodium [Moles/Vol] 142 mmol/L 135 - 144 mmol/L [place] Urea nitrogen [Mass/Vol] 22 mg/dL 8 - 23 mg/dL [place] Metabolic Panelon 03-25-2020 GFR/1.73 sq M predicted among non-blacks MDRD (S/P/Bld) [Vol rate/Area] [place] Comment on above: Average GFR for 70 o r more years old: 75 mL/min/1.73sq m Chronic Kidney Disease: <60 mL/min/1.73sq m Kidney failure: <15 mL/min/1.73sq m eGFR calculated using average adult body mass. Additional eGFR calculator available at: http://www.PERORA/multiple_crcl_2012.htm Stage 1: Some kidney damage normal GFR Stage 2: Mild kidney damage GFR 60-89 Stage 3: Moderate kidney damage GFR 30-59 Stage 4: Severe kidney damage GFR 15-29 Stage 5: Severe kidney damage GFR <15 ESRD - chronic treatment by dialysis or transplant APTTon 03-23-2020 aPTT Coag (Bld) [Time] 33.4 s Me [place] Comment on above: IV Heparin Therapy Range: 62.0-94.0 Basic Metabolic Panel w/ Ref tosha to MGon 03-23-2020 Anion gap [Moles/Vol] 16 mmol/L 9 - 17 mmol/L [place] Bun/Cre Ratio 17 [place] Calcium [Mass/Vol] 9.2 mg/dL 8.6 - 10. 4 mg/dL [place] Chloride [Moles/Vol] 99 mmol/L 98 - 10 7 mmol/L [place] CO2 [Moles/Vol] 25 mmol/L 20 - 31 mmol/L [place] Creatinine [Mass/Vol] 1.43 mg/dL High 0.5 - 0.9 mg/dL [place] GFR 43 mL/min Low >60 [place] GFR Non- 35 mL/min Low >60 [place] Glucose [Mass/Vol] 112 mg/dL High 70 - 99 mg/dL [place] Interpretation and review of laboratory results Abnormal [place] Potassium [Moles/Vol] 4.1 mmol/L 3.7 - 5.3 mmol/L [place] Sodium [Moles/Vol] 140 mmol/L 135 - 144 mmol/L [place] Urea nitrogen [Mass/Vol] 25 mg/dL High 8 - 23 mg/dL [place] CBC Auto Differentialon 02-26 Basophils (Bld) [#/Vol] 10*3/uL [place] Basophils/100 WBC (Bld) 0 % 0 - 2 % [place] Differential Type NOT REPORTED [place] Eosinophils (Bld) [#/Vol] 0.12 10*3/uL [place] Eosinophils/100 WBC (Bld) 1 % 1 - 4 % [place] Erythrocyte distribution width (RBC) [Ratio] 14.5 % High 11.8 - 14.4 % [place] Hematocrit (Bld) [Volume fraction] 38.0 % 36.3 - 47.1 % [place] Hemoglobin (Bld) [Mass/Vol] 11.4 g/dL Low 11.9 - 15.1 g/dL [place] Immature granulocytes (Bld) [#/Vol] 0 % 0 [place] Immature granulocytes (Bld) [#/Vol] 0.03 10*3/uL [place] Interpretation and review of laboratory results Abnormal [place] Lymphocytes (Bld) [#/Vol] 1.80 10*3/uL [place] Lymphocytes/100 WBC (Bld) 17 % Low 24 - 43 % [place] MCH (RBC) [Entitic mass] 31.1 pg 25. 2 - 33.5 pg [place] MCHC (RBC) [Mass/Vol] 30.0 g/dL 28.4 - 34.8 g/dL [place] MCV (RBC) [Entitic vol] 103.8 fL High 82.6 - 102.9 fL [place] Monocytes (Bld) [#/Vol] 1.42 10*3/uL [place] Monocytes/100 WBC (Bld) 13 % High 3 - 12 % [place] Platelet mean volume (Bld) [Entitic vol] 10.2 fL 8.1 - 13.5 fL [place] Platelets (Bld) [#/Vol] NOT REPORTED [place] Platelets (Bld) [#/Vol] 245 10*3/uL [place] RBC (Bld) [#/Vol] 3.66 10*6/uL Low 3.95 - 5.1 1 m/uL [place] RBC morphology finding Nom (Bld) NOT REPORTED [place] Segmented neutrophils/100 WBC (Bld) 69 % High 36 - 65 % [place] Segs Absolute 7.34 [place] WBC (Bld) [#/Vol] 10.7 10*3/uL [place] WBC (Bld) [#/Vol] 0.0 10*3/uL 0.0 per 10 0 WBC [place] WBC Morphology NOT REPORTED [place] COVID-19, PCRon 03-23-2020 SARS-CoV-2 [place] SARS-CoV-2, PCR [place] SARS-CoV-2, Rapid Not Detected Not Detected [place] Comment on above: Rapid NAAT: The [...] management decisions. Fact sheet for Healthcare Providers: https://www.fda.gov/media/383988/download Fact sheet for Patients: https://www.fda.gov/media/206530/download Methodology: Isothermal Nucleic Acid Amplification Source .NASOPHARYNGEAL SWAB [place] Metabolic Panelon 03-23-2020 GFR/1.73 sq M predicted among non-blacks MDRD (S/P/Bld) [Vol rate/Area] [place] Comment on above: Average GFR for 70 o r more years old: 75 mL/min/1.73sq m Chronic Kidney Disease: <60 mL/min/1.73sq m Kidney failure: <15 mL/min/1.73sq m eGFR calculated using average adult body mass. Additional eGFR calculator available at: http://www.PERORA/StudioNow_crcl_2012.htm Stage 1: Some kidney damage normal GFR Stage 2: Mild kidney damage GFR 60-89 Stage 3: Moderate kidney damage GFR 30-59 Stage 4: Severe kidney damage GFR 15-29 Stage 5: Severe kidney damage GFR <15 ESRD - chronic treatment by dialysis or transplant Protime-INRon 03-23-2020 INR Coag (PPP) [Relative time] 1.2 {INR} [place] Comment on above: Non-therapeutic Range: INR = 0.9-1.2 Therapeutic Range: Moderate Anticoagulant Intensity: INR = 2.0-3.0 High Anticoagulant Intensity: INR = 2.5-3.5 Interpretation and review of laboratory results Abnormal [place] PT Coag (PPP) [Time] 14.9 s High [place] XR HIP 2-3 VW W PELVIS LEFTo n 03-23-2020 Erythrocyte distribution width (RBC) [Ratio] Hardware fixation of the proximal left femoral fracture without evidence for complication. Degenerative change of the SI joints and hip joints. [place], [facility] Incoming Radiant Results From [employer] - 03/23/2020 3:40 PM EDT EXAMINATION: ONE [...] of the SI joints and hip joints. [place] EXAMINATION: ONE XRA Y VIEW OF [...] joints. The surrounding soft tissues are unremarkable. [place] CBC Auto Differentialon 02-25 Basophils (Bld) [#/Vol] 10*3/uL [place] Basophils/100 WBC (Bld) 0 % 0 - 2 % [place] Differential Type NOT REPORTED [place] Eosinophils (Bld) [#/Vol] 0.25 10*3/uL [place] Eosinophils/100 WBC (Bld) 5 % High 1 - 4 % [place] Erythrocyte distribution width (RBC) [Ratio] 16.0 % High 11.8 - 14.4 % [place] Hematocrit (Bld) [Volume fraction] 34.2 % Low 36.3 - 47.1 % [place] Hemoglobin (Bld) [Mass/Vol] 10.0 g/dL Low 11.9 - 15.1 g/dL [place] Immature granulocytes (Bld) [#/Vol] 0.03 10*3/uL [place] Immature granulocytes (Bld) [#/Vol] 1 % High 0 [place] Interpretation and review of laboratory results Abnormal [place] Lymphocytes (Bld) [#/Vol] 1.50 10*3/uL [place] Lymphocytes/100 WBC (Bld) 30 % 24 - 43 % [place] MCH (RBC) [Entitic mass] 31.2 pg 25. 2 - 33.5 pg [place] MCHC (RBC) [Mass/Vol] 29.2 g/dL 28.4 - 34.8 g/dL [place] MCV (RBC) [Entitic vol] 106.5 fL High 82.6 - 102.9 fL [place] Monocytes (Bld) [#/Vol] 0.70 10*3/uL [place] Monocytes/100 WBC (Bld) 14 % High 3 - 12 % [place] Platelet mean volume (Bld) [Entitic vol] 10.2 fL 8.1 - 13.5 fL [place] Platelets (Bld) [#/Vol] NOT REPORTED [place] Platelets (Bld) [#/Vol] 311 10*3/uL [place] RBC (Bld) [#/Vol] 3.21 10*6/uL Low 3.95 - 5.1 1 m/uL [place] RBC morphology finding Nom (Bld) NOT REPORTED [place] Segmented neutrophils/100 WBC (Bld) 50 % 36 - 65 % [place] Segs Absolute 2.44 [place] WBC (Bld) [#/Vol] 0.0 10*3/uL 0.0 per 10 0 WBC [place] WBC (Bld) [#/Vol] 4.9 10*3/uL [place] WBC Morphology NOT REPORTED [place] Comprehensive Metabolic Pane riddhi 03-12-2020 Albumin [Mass/Vol] 3.3 g/dL Low 3.5 - 5.2 g/dL [place] Albumin/Globulin [Mass ratio] 1.6 {ratio} [place] ALP [Catalytic activity/Vol] 124 U/L High 35 - 104 U/L [place] ALT [Catalytic activity/Vol] 18 U/L 5 - 33 U/L [place] Anion gap [Moles/Vol] 14 mmol/L 9 - 17 mmol/L [place] AST [Catalytic activity/Vol] 20 U/L <32 [place] Bilirubin Ql (U) 0.19 mg/dL Low 0.3 - 1.2 mg/dL [place] Bun/Cre Ratio 20 [place] Calcium [Mass/Vol] 8.6 mg/dL 8.6 - 10. 4 mg/dL [place] Chloride [Moles/Vol] 106 mmol/L 98 - 10 7 mmol/L [place] CO2 [Moles/Vol] 24 mmol/L 20 - 31 mmol/L [place] Creatinine [Mass/Vol] 1.5 mg/dL High 0.5 - 0.9 mg/dL [place] GFR 40 mL/min Low >60 [place] GFR Non- 33 mL/min Low >60 [place] Glucose [Mass/Vol] 78 mg/dL 70 - 99 mg/dL [place] Interpretation and review of laboratory results Abnormal [place] Potassium [Moles/Vol] 4.3 mmol/L 3.7 - 5.3 mmol/L [place] Protein [Mass/Vol] 5.4 g/dL Low 6.4 - 8.3 g/dL [place] Sodium [Moles/Vol] 144 mmol/L 135 - 144 mmol/L [place] Urea nitrogen [Mass/Vol] 30 mg/dL High 8 - 23 mg/dL [place] Metabolic Panelon 03-12-2020 GFR/1.73 sq M predicted among non-blacks MDRD (S/P/Bld) [Vol rate/Area] [place] Comment on above: Stage 1: Some [...] body mass. Additional eGFR calculator available at: http://www.PERORA/multiple_crcl_2012.htm CBC Auto Differentialon Basophils (Bld) [#/Vol] 10*3/uL [place] Basophils/100 WBC (Bld) 0 % 0 - 2 % [place] Differential Type NOT REPORTED [place] Eosinophils (Bld) [#/Vol] 0.25 10*3/uL [place] Eosinophils/100 WBC (Bld) 4 % 1 - 4 % [place] Erythrocyte distribution width (RBC) [Ratio] 17.5 % High 11.8 - 14.4 % [place] Hematocrit (Bld) [Volume fraction] 33.4 % Low 36.3 - 47.1 % [place] Hemoglobin (Bld) [Mass/Vol] 10.0 g/dL Low 11.9 - 15.1 g/dL [place] Immature granulocytes (Bld) [#/Vol] 0.03 10*3/uL [place] Immature granulocytes (Bld) [#/Vol] 1 % High 0 [place] Interpretation and review of laboratory results Abnormal [place] Lymphocytes (Bld) [#/Vol] 1.40 10*3/uL [place] Lymphocytes/100 WBC (Bld) 23 % Low 24 - 43 % [place] MCH (RBC) [Entitic mass] 31.1 pg 25. 2 - 33.5 pg [place] MCHC (RBC) [Mass/Vol] 29.9 g/dL 28.4 - 34.8 g/dL [place] MCV (RBC) [Entitic vol] 103.7 fL High 82.6 - 102.9 fL [place] Monocytes (Bld) [#/Vol] 0.58 10*3/uL [place] Monocytes/100 WBC (Bld) 9 % 3 - 12 % [place] Platelet mean volume (Bld) [Entitic vol] 9.6 fL 8.1 - 13.5 fL [place] Platelets (Bld) [#/Vol] NOT REPORTED [place] Platelets (Bld) [#/Vol] 403 10*3/uL [place] RBC (Bld) [#/Vol] 3.22 10*6/uL Low 3.95 - 5.1 1 m/uL [place] RBC morphology finding Nom (Bld) NOT REPORTED [place] Segmented neutrophils/100 WBC (Bld) 63 % 36 - 65 % [place] Segs Absolute 3.89 [place] WBC (Bld) [#/Vol] 0.0 10*3/uL 0.0 per 10 0 WBC [place] WBC (Bld) [#/Vol] 6.2 10*3/uL [place] WBC Morphology NOT REPORTED [place] Comprehensive Metabolic Pane riddhi 02-27-2020 Albumin [Mass/Vol] 3.3 g/dL Low 3.5 - 5.2 g/dL [place] Albumin/Globulin [Mass ratio] 1.3 {ratio} [place] ALP [Catalytic activity/Vol] 145 U/L High 35 - 104 U/L [place] ALT [Catalytic activity/Vol] 40 U/L High 5 - 33 U/L [place] Anion gap [Moles/Vol] 11 mmol/L 9 - 17 mmol/L [place] AST [Catalytic activity/Vol] 34 U/L High <32 [place] Bilirubin Ql (U) 0.39 mg/dL 0.3 - 1.2 mg/dL [place] Bun/Cre Ratio 21 [place] Calcium [Mass/Vol] 8.8 mg/dL 8.6 - 10. 4 mg/dL [place] Chloride [Moles/Vol] 107 mmol/L 98 - 10 7 mmol/L [place] CO2 [Moles/Vol] 24 mmol/L 20 - 31 mmol/L [place] Creatinine [Mass/Vol] 1.32 mg/dL High 0.5 - 0.9 mg/dL [place] GFR 47 mL/min Low >60 [place] GFR Non- 39 mL/min Low >60 [place] Glucose [Mass/Vol] 103 mg/dL High 70 - 99 mg/dL [place] Interpretation and review of laboratory results Abnormal [place] Potassium [Moles/Vol] 3.8 mmol/L 3.7 - 5.3 mmol/L [place] Protein [Mass/Vol] 5.9 g/dL Low 6.4 - 8.3 g/dL [place] Sodium [Moles/Vol] 142 mmol/L 135 - 144 mmol/L [place] Urea nitrogen [Mass/Vol] 28 mg/dL High 8 - 23 mg/dL [place] Metabolic Panelon 02-27-2020 GFR/1.73 sq M predicted among non-blacks MDRD (S/P/Bld) [Vol rate/Area] [place] Comment on above: Stage 1: Some [...] body mass. Additional eGFR calculator available at: http://www.[employer]/multiple_crcl_2012.htm CBC Auto Differentialon 01-26 Basophils (Bld) [#/Vol] 10*3/uL [place] Basophils/100 WBC (Bld) 0 % 0 - 2 % [place] Differential Type NOT REPORTED [place] Eosinophils (Bld) [#/Vol] 0.33 10*3/uL [place] Eosinophils/100 WBC (Bld) 4 % 1 - 4 % [place] Erythrocyte distribution width (RBC) [Ratio] 16.7 % High 11.8 - 14.4 % [place] Hematocrit (Bld) [Volume fraction] 31.9 % Low 36.3 - 47.1 % [place] Hemoglobin (Bld) [Mass/Vol] 9.7 g/dL Low 11.9 - 15.1 g/dL [place] Immature granulocytes (Bld) [#/Vol] 0.20 10*3/uL [place] Immature granulocytes (Bld) [#/Vol] 2 % High 0 [place] Interpretation and review of laboratory results Abnormal [place] Lymphocytes (Bld) [#/Vol] 2.08 10*3/uL [place] Lymphocytes/100 WBC (Bld) 23 % Low 24 - 43 % [place] MCH (RBC) [Entitic mass] 30.8 pg 25. 2 - 33.5 pg [place] MCHC (RBC) [Mass/Vol] 30.4 g/dL 28.4 - 34.8 g/dL [place] MCV (RBC) [Entitic vol] 101.3 fL 82.6 - 102.9 fL [place] Monocytes (Bld) [#/Vol] 1.09 10*3/uL [place] Monocytes/100 WBC (Bld) 12 % 3 - 12 % [place] Platelet mean volume (Bld) [Entitic vol] 9.8 fL 8.1 - 13.5 fL [place] Platelets (Bld) [#/Vol] NOT REPORTED [place] Platelets (Bld) [#/Vol] 468 10*3/uL [place] RBC (Bld) [#/Vol] 3.15 10*6/uL Low 3.95 - 5.1 1 m/uL [place] RBC morphology finding Nom (Bld) NOT REPORTED [place] Segmented neutrophils/100 WBC (Bld) 59 % 36 - 65 % [place] Segs Absolute 5.43 [place] WBC (Bld) [#/Vol] 0.0 10*3/uL 0.0 per 10 0 WBC [place] WBC (Bld) [#/Vol] 9.2 10*3/uL [place] WBC Morphology NOT REPORTED [place] Comprehensive Metabolic Pane riddhi 02-20-2020 Albumin [Mass/Vol] 3.3 g/dL Low 3.5 - 5.2 g/dL [place] Albumin/Globulin [Mass ratio] 1.2 {ratio} [place] ALP [Catalytic activity/Vol] 158 U/L High 35 - 104 U/L [place] ALT [Catalytic activity/Vol] 101 U/L High 5 - 33 U/L [place] Anion gap [Moles/Vol] 15 mmol/L 9 - 17 mmol/L [place] AST [Catalytic activity/Vol] 100 U/L High <32 [place] Bilirubin Ql (U) 0.43 mg/dL 0.3 - 1.2 mg/dL [place] Bun/Cre Ratio 23 [place] Calcium [Mass/Vol] 8.6 mg/dL 8.6 - 10. 4 mg/dL [place] Chloride [Moles/Vol] 102 mmol/L 98 - 10 7 mmol/L [place] CO2 [Moles/Vol] 22 mmol/L 20 - 31 mmol/L [place] Creatinine [Mass/Vol] 1.46 mg/dL High 0.5 - 0.9 mg/dL [place] GFR 42 mL/min Low >60 [place] GFR Non- 34 mL/min Low >60 [place] Glucose [Mass/Vol] 98 mg/dL 70 - 99 mg/dL [place] Interpretation and review of laboratory results Abnormal [place] Potassium [Moles/Vol] 3.6 mmol/L Low 3.7 - 5.3 mmol/L [place] Protein [Mass/Vol] 6.0 g/dL Low 6.4 - 8.3 g/dL [place] Sodium [Moles/Vol] 139 mmol/L 135 - 144 mmol/L [place] Urea nitrogen [Mass/Vol] 33 mg/dL High 8 - 23 mg/dL [place] Metabolic Panelon 02-20-2020 GFR/1.73 sq M predicted among non-blacks MDRD (S/P/Bld) [Vol rate/Area] [place] Comment on above: Stage 1: Some [...] body mass. Additional eGFR calculator available at: http://www.PERORA/multiple_crcl_2012.htm C Bldon 02-17-2020 C Bld -- - Final No growth at 5 days. Normal [facility] Comment on above: Performed By: #### E GFR #### [address] [address] C Bld Blood cultures x 2 - Final No growth at 5 days. Normal [facility] Comment on above: Performed By: #### F OL #### [address] [address] .eGFRon 02-15-2020 eGFR AA 40 mL/min/1.73m? Low >=60 [facility] Comment on above: Result Comment: Resu lt = 0-14.9 mL/min/1.73 m2 Kidney failure or Dialysis Result = 15-29 mL/min/1.73 m2 Severe decrease in GFR Result = 30-59 mL/min/1.73 m2 Moderate decrease in GFR Result >= 60 mL/min/1.73 m2 Normal or increased GFR Performed By: #### T IBC #### [address] [address] eGFR Non-AA 33 mL/min/1.73m? Low >=60 [facility] Comment on above: Result Comment: Resu [...] dosing. Performed By: #### T IBC #### [address] [address] CBCon 02-15-2020 Erythrocyte distribution width (RBC) [Ratio] 14.7 % Normal 11.6-14.8 [facility] Comment on above: Performed By: #### F OL #### [address] [address] Hematocrit (Bld) [Volume fraction] 28.4 % Low 36.0-46.0 [facility] Comment on above: Performed By: #### F OL #### [address] [address] Hemoglobin (Bld) [Mass/Vol] 9.3 g/dL Low 12.0-16.0 [facility] Comment on above: Performed By: #### F OL #### [address] [address] MCH (RBC) [Entitic mass] 30.7 pg Normal 27.0-35.0 [facility] Comment on above: Performed By: #### F OL #### [address] [address] MCHC (RBC) [Mass/Vol] 32.8 % Normal 31.0-37.0 [facility] Comment on above: Performed By: #### F OL #### [address] [address] MCV (RBC) [Entitic vol] 93.4 fL Normal 80.0-100.0 [facility] Comment on above: Performed By: #### F OL #### [address] [address] Platelet mean volume (Bld) [Entitic vol] 8.4 fL Normal 6.7-10.6 [facility] Comment on above: Performed By: #### F OL #### [address] [address] Platelets (Bld) [#/Vol] 246 x10*3/mcL Normal 150-350 [facility] Comment on above: Performed By: #### F OL #### [address] [address] RBC (Bld) [#/Vol] 3.04 x10*6/mcL Low 3.80-5.20 [facility] Comment on above: Performed By: #### F OL #### [address] [address] WBC (Bld) [#/Vol] 8.2 x10*3/mcL Normal 4.5-11.0 [facility] Comment on above: Performed By: #### F OL #### [address] [address] Magnesiumon 02-15-2020 Magnesium [Mass/Vol] 2.1 mg/dL Normal 1.7-2.4 [facility] Comment on above: Performed By: #### T IBC #### [facility] [address] [place] [address] Nephrology Progress Noteon 0 02-15-2020 Nephrology Progress [...] Oral, q6hr, PRN acetaminophen, 1000 mg, Oral, [id number] Times ALPRAZolam, 0.25 mg, Oral, HS (at bedtime) calcitriol, 0.25 mcg, Oral, Mo/We/Fr Dulcolax Laxative, 10 mg, Oral, Daily, PRN Haldol, 2.5 mg, 0.5 mL, IM, [id number] Times, PRN hydrALAZINE, 25 mg, Oral, TID Lovenox, 30 mg, 0.3 mL, Subcutaneous, q24hr meclizine, 25 mg, Oral, TID, PRN MiraLax, 17 g, 1 EA, Oral, Daily naloxone, 0.4 mg, 1 mL, IV Push, q2min, PRN [place] 5 mg-325 mg oral tablet, 1 tabs, [...] by Dr. Jordan on 02/09 Discharged to [place] for rehab post surgery. 6. Intertrochanteric fracture [...] Hearing loss sensory, bilateral Discharge planning to [place]. Follow-up with Dr. Chew on discharge. Electronically [...] from now Electronically signed by Dilan Chew DO [place] 02/15/20 23:31 EDT Normal [facility] Progress Note-Nurseon 2019 Progress Note-Nurse Nurse Serg called [facility] to give report regarding the discharge. [...] Ming Serg S 02/15/20 13:31 EDT Normal [facility] Provider Letteron 02-15-2020 Provider Letter Justino Dhaliwal DO [address] [place] [id number] Re: Jesús Nolan Date of Visit: 02/09/2020 Dear Justino Dhaliwal, I had the pleasure of taking care of your patient in the hospital. I have included my documentation for your review. Please let me know if you have any questions or concerns. Sincerely, Valerie Mota APRN-DITTO MACHINE OPERATOR C C Providers: The following document(s) were included in the letter: February 15, 2020 10:09:39 EDT - (02/15/2020) Hospitalist Discharge Summary Note Normal [facility] Renal Panelon 02-15-2020 Albumin [Mass/Vol] 3.0 g/dL Low 3.2-4.9 [facility] Comment on above: Result Comment: [facility] Laboratory updated the methodology used for albumin testing on 05/04/18. Albumin measurement was performed using a bromcresol purple dye-binding assay. Performed By: #### E GFR #### [address] [address] Anion gap [Moles/Vol] 15 mmol/L Normal 7-17 [facility] Comment on above: Performed By: #### E GFR #### [address] [address] Calcium [Mass/Vol] 8.2 mg/dL Low 8.5-10.3 [facility] Comment on above: Performed By: #### E GFR #### [address] [address] Chloride [Moles/Vol] 103 mmol/L Normal 98-110 [facility] Comment on above: Performed By: #### E GFR #### [address] [address] CO2 [Moles/Vol] 25 mmol/L Normal 22-32 [facility] Comment on above: Performed By: #### E GFR #### [address] [address] Creatinine [Mass/Vol] 1.51 mg/dL High 0.44-1.03 [facility] Comment on above: Performed By: #### E GFR #### [address] [address] Glucose [Mass/Vol] 105 mg/dL High 70-99 [facility] Comment on above: Performed By: #### E GFR #### [address] [address] Phosphate [Mass/Vol] 3.4 mg/dL Normal 2.5-4.6 [facility] Comment on above: Performed By: #### E GFR #### [address] [address] Potassium [Moles/Vol] 4.4 mmol/L Normal 3.4-4.8 [facility] Comment on above: Performed By: #### E GFR #### [address] [address] Sodium [Moles/Vol] 139 mmol/L Normal 133-142 [facility] Comment on above: Performed By: #### E GFR #### [address] [address] Urea nitrogen [Mass/Vol] 26 mg/dL Normal 8-26 [facility] Comment on above: Performed By: #### E GFR #### [address] [address] Urea nitrogen/Creatinine [Mass ratio] 17.2 mg/mg Normal 10.0-20.0 [facility] Comment on above: Performed By: #### E GFR #### [address] [address] [id number] RNA PCR Send O uton 02-15-2020 [id number] RNA by PCR Not Detected Normal Not Detected [facility] Comment on above: Order Comment: utmcf or nh placement in a couple days Result Comment: Miss ing Attachment Chartable Reference Lab Reports Can be viewed in source system Performed By: #### E GFR #### [address] [address] .eGFRon 02-14-2020 eGFR Non-AA 37 mL/min/1.73m? Low >=60 [facility] Comment on above: Result Comment: Resu [...] dosing. Performed By: #### E GFR #### [address] [address] eGFR AA 45 mL/min/1.73m? Low >=60 [facility] Comment on above: Result Comment: Resu lt = 0-14.9 mL/min/1.73 m2 Kidney failure or Dialysis Result = 15-29 mL/min/1.73 m2 Severe decrease in GFR Result = 30-59 mL/min/1.73 m2 Moderate decrease in GFR Result >= 60 mL/min/1.73 m2 Normal or increased GFR Performed By: #### E GFR #### [address] [address] CBCon 02-14-2020 Erythrocyte distribution width (RBC) [Ratio] 14.5 % Normal 11.6-14.8 [facility] Comment on above: Performed By: #### T IBC #### [address] [address] Hematocrit (Bld) [Volume fraction] 26.8 % Low 36.0-46.0 [facility] Comment on above: Performed By: #### T IBC #### [address] [address] Hemoglobin (Bld) [Mass/Vol] 8.8 g/dL Low 12.0-16.0 [facility] Comment on above: Performed By: #### T IBC #### [address] [address] MCH (RBC) [Entitic mass] 30.6 pg Normal 27.0-35.0 [facility] Comment on above: Performed By: #### T IBC #### [address] [address] MCHC (RBC) [Mass/Vol] 33.0 % Normal 31.0-37.0 [facility] Comment on above: Performed By: #### T IBC #### [address] [address] MCV (RBC) [Entitic vol] 92.8 fL Normal 80.0-100.0 [facility] Comment on above: Performed By: #### T IBC #### [address] [address] Platelet mean volume (Bld) [Entitic vol] 8.7 fL Normal 6.7-10.6 [facility] Comment on above: Performed By: #### T IBC #### [address] [address] Platelets (Bld) [#/Vol] 190 x10*3/mcL Normal 150-350 [facility] Comment on above: Performed By: #### T IBC #### [address] [address] RBC (Bld) [#/Vol] 2.89 x10*6/mcL Low 3.80-5.20 [facility] Comment on above: Performed By: #### T IBC #### [address] [address] WBC (Bld) [#/Vol] 8.6 x10*3/mcL Normal 4.5-11.0 [facility] Comment on above: Performed By: #### T IBC #### [address] [address] Magnesiumon 02-14-2020 Magnesium [Mass/Vol] 2.2 mg/dL Normal 1.7-2.4 [facility] Comment on above: Performed By: #### P HOS #### [address] [address] Nephrology Progress Noteon 0 02-14-2020 Nephrology Progress [...] acute pulmonary process. Signed By: Manolo KUMAR, [facility] Computed Tomography No qualifying data [...] Oral, q6hr, PRN acetaminophen, 1000 mg, Oral, [id number]-[id number] Times ALPRAZolam, 0.25 mg, Oral, HS (at bedtime) calcitriol, 0.25 mcg, Oral, // Dulcolax Laxative, 10 mg, Oral, Daily, PRN Haldol, 2.5 mg, 0.5 mL, IM, [id number] Times, PRN hydrALAZINE, 25 mg, Oral, TID Lovenox, 30 mg, 0.3 mL, Subcutaneous, q24hr meclizine, 25 mg, Oral, TID, PRN naloxone, 0.4 mg, 1 mL, IV Push, q2min, PRN [place]itesburg 5 mg-325 mg oral tablet, 1 tabs, [...] Hearing loss sensory, bilateral Possible discharge to [facility] testing pending. Follow-up with Dr. Chew on [...] with use of hydralazine. Electronically signed by Jeevan NIELSON Dilan Uwariomilamar 02/14/20 22:40 EDT Normal [facility] Orthopedic Progress Noteon 0 02-14-2020 Orthopedic [...] Oral, q6hr, PRN acetaminophen, 1000 mg, Oral, [id number] Times ALPRAZolam, 0.25 mg, Oral, HS (at bedtime) calcitriol, 0.25 mcg, Oral, Mo/We/Fr Dulcolax Laxative, 10 mg, Oral, Daily, PRN Haldol, 2.5 mg, 0.5 mL, IM, [id number] Times, PRN hydrALAZINE, 25 mg, Oral, TID Lovenox, 30 mg, 0.3 mL, Subcutaneous, q24hr meclizine, 25 mg, Oral, TID, PRN MiraLax, 17 g, 1 EA, Oral, Daily naloxone, 0.4 mg, 1 mL, IV Push, q2min, PRN [place]itesburg 5 mg-325 mg oral tablet, 1 tabs, [...] and pain control. We will follow-up at [facility] in 2 weeks for recheck. 3. Chronic kidney disease 4. Electrolyte abnormality 5. Renal osteodystrophy 6. Hypertension 7. Status post hip surgery 8. Laceration of head 9. Hearing loss sensory, bilateral 10. Anemia Electronically signed by Naman Edmond PA-C 02/14/20 19:09 EDT Normal [facility] Renal Panelon 02-14-2020 Albumin [Mass/Vol] 2.9 g/dL Low 3.2-4.9 [facility] Comment on above: Result Comment: [facility] Laboratory updated the methodology used for albumin testing on 05/04/18. Albumin measurement was performed using a bromcresol purple dye-binding assay. Performed By: #### E GFR #### [address] [address] Anion gap [Moles/Vol] 14 mmol/L Normal 7-17 [facility] Comment on above: Performed By: #### E GFR #### [address] [address] Calcium [Mass/Vol] 8.1 mg/dL Low 8.5-10.3 [facility] Comment on above: Performed By: #### E GFR #### [address] [address] Chloride [Moles/Vol] 103 mmol/L Normal 98-110 [facility] Comment on above: Performed By: #### E GFR #### [address] [address] CO2 [Moles/Vol] 25 mmol/L Normal 22-32 [facility] Comment on above: Performed By: #### E GFR #### [address] [address] Creatinine [Mass/Vol] 1.37 mg/dL High 0.44-1.03 [facility] Comment on above: Performed By: #### E GFR #### [address] [address] Glucose [Mass/Vol] 115 mg/dL High 70-99 [facility] Comment on above: Performed By: #### E GFR #### [address] [address] Phosphate [Mass/Vol] 2.0 mg/dL Low 2.5-4.6 [facility] Comment on above: Performed By: #### E GFR #### [address] [address] Potassium [Moles/Vol] 3.9 mmol/L Normal 3.4-4.8 [facility] Comment on above: Performed By: #### E GFR #### [address] [address] Sodium [Moles/Vol] 138 mmol/L Normal 133-142 [facility] Comment on above: Performed By: #### E GFR #### [address] [address] Urea nitrogen [Mass/Vol] 20 mg/dL Normal 8-26 [facility] Comment on above: Performed By: #### E GFR #### [address] [address] Urea nitrogen/Creatinine [Mass ratio] 14.6 mg/mg Normal 10.0-20.0 [facility] Comment on above: Performed By: #### E GFR #### [address] [address] .UA Microscp Aon 02-13-2020 UA Mucus Present Abnormal Absent [facility] Comment on above: Performed By: #### C [id number] #### [address] [address] UA RBC Quant 0 /HPF Normal 0-5 [facility] Comment on above: Performed By: #### C [id number] #### [address] [address] UA WBC Quant 0 /HPF Normal 0-5 [facility] Comment on above: Performed By: #### C [id number] #### [address] [address] .eGFRon 02-13-2020 eGFR Non-AA 30 mL/min/1.73m? Low >=60 [facility] Comment on above: Order Comment: Order [...] dosing. Performed By: #### E GFR #### [address] [address] eGFR AA 36 mL/min/1.73m? Low >=60 [facility] Comment on above: Order Comment: Order added by Discern rule Result Comment: Resu lt = 0-14.9 mL/min/1.73 m2 Kidney failure or Dialysis Result = 15-29 mL/min/1.73 m2 Severe decrease in GFR Result = 30-59 mL/min/1.73 m2 Moderate decrease in GFR Result >= 60 mL/min/1.73 m2 Normal or increased GFR Performed By: #### E GFR #### [address] [address] CBCon 02-13-2020 Erythrocyte distribution width (RBC) [Ratio] 14.5 % Normal 11.6-14.8 [facility] Comment on above: Performed By: #### E GFR #### [address] [address] Hematocrit (Bld) [Volume fraction] 27.6 % Low 36.0-46.0 [facility] Comment on above: Performed By: #### E GFR #### [address] [address] Hemoglobin (Bld) [Mass/Vol] 9.1 g/dL Low 12.0-16.0 [facility] Comment on above: Performed By: #### E GFR #### [address] [address] MCH (RBC) [Entitic mass] 30.7 pg Normal 27.0-35.0 [facility] Comment on above: Performed By: #### E GFR #### [address] [address] MCHC (RBC) [Mass/Vol] 32.9 % Normal 31.0-37.0 [facility] Comment on above: Performed By: #### E GFR #### [address] [address] MCV (RBC) [Entitic vol] 93.2 fL Normal 80.0-100.0 [facility] Comment on above: Performed By: #### E GFR #### [address] [address] Platelet mean volume (Bld) [Entitic vol] 9.0 fL Normal 6.7-10.6 [facility] Comment on above: Performed By: #### E GFR #### [address] [address] Platelets (Bld) [#/Vol] 169 x10*3/mcL Normal 150-350 [facility] Comment on above: Performed By: #### E GFR #### [address] [place] [address] RBC (Bld) [#/Vol] 2.96 x10*6/mcL Low 3.80-5.20 [facility] Comment on above: Performed By: #### E GFR #### [address] [address] WBC (Bld) [#/Vol] 9.8 x10*3/mcL Normal 4.5-11.0 [facility] Comment on above: Performed By: #### E GFR #### [address] [address] Water Use Inspector Progress Noteon 02-13-2020 Water Use Inspector Progress Note Second IMM letter delivered to patient. Electronically signed by Kasie Flowers 02/13/20 09:58 EDT Normal [facility] Magnesiumon 02-13-2020 Magnesium [Mass/Vol] 2.3 mg/dL Normal 1.7-2.4 [facility] Comment on above: Performed By: #### E GFR #### [address] [address] Nephrology Progress Noteon 0 02-13-2020 Nephrology Progress [...] pulmonary process. Signed By: Manolo KUMAR, Benny XR Femur 2 or More Views Left [...] mg, 1 mL, IV Push, q2min, PRN [place]itesburg 5 mg-325 mg oral tablet, 1 tabs, [...] medications. Electronically signed by Dilan Chew DO Juliacarl 02/13/20 23:09 EDT Normal [facility] Orthopedic Progress Noteon 0 02-13-2020 Orthopedic [...] Oral, q6hr, PRN acetaminophen, 1000 mg, Oral, [id number] Times ALPRAZolam, 0.25 mg, Oral, HS (at bedtime) calcitriol, 0.25 mcg, Oral, Mo/We/Fr Dulcolax Laxative, 10 mg, Oral, Daily, PRN Haldol, 2.5 mg, 0.5 mL, IM, [id number]-[id number] Times, PRN hydrALAZINE, 25 mg, Oral, TID Lovenox, 30 mg, 0.3 mL, Subcutaneous, q24hr meclizine, 25 mg, Oral, TID, PRN naloxone, 0.4 mg, 1 mL, IV Push, q2min, PRN [place] 5 mg-325 mg oral tablet, 1 tabs, [...] prophylaxis, and PT. Okay to [facility] to [facility] facility from orthopedic standpoint. Follow-up at [facility] with Dr. Jordan in 2 weeks. 3. Chronic kidney disease 4. Electrolyte abnormality 5. Renal osteodystrophy 6. Hypertension 7. Status post hip surgery 8. Laceration of head 9. Hearing loss sensory, bilateral 10. Anemia Electronically signed by Naman Edmond PA-C 02/13/20 17:38 EDT Normal [facility] Renal Panelon 02-13-2020 Albumin [Mass/Vol] 3.4 g/dL Normal 3.2-4.9 [facility] Comment on above: Result Comment: [facility] Laboratory updated the methodology used for albumin testing on 05/04/18. Albumin measurement was performed using a bromcresol purple dye-binding assay. Performed By: #### R ENAL #### [address] [address] Anion gap [Moles/Vol] 13 mmol/L Normal 7-17 [facility] Comment on above: Performed By: #### R ENAL #### [address] [address] Calcium [Mass/Vol] 8.0 mg/dL Low 8.5-10.3 [facility] Comment on above: Performed By: #### R ENAL #### [address] [address] Chloride [Moles/Vol] 105 mmol/L Normal 98-110 [facility] Comment on above: Performed By: #### R ENAL #### [address] [address] CO2 [Moles/Vol] 26 mmol/L Normal 22-32 [facility] Comment on above: Performed By: #### R ENAL #### [address] [place] [address] Creatinine [Mass/Vol] 1.64 mg/dL High 0.44-1.03 [facility] Comment on above: Performed By: #### R ENAL #### [address] [place] [address] Glucose [Mass/Vol] 114 mg/dL High 70-99 [facility] Comment on above: Performed By: #### R ENAL #### [address] [place] [address] Phosphate [Mass/Vol] 2.8 mg/dL Normal 2.5-4.6 [facility] Comment on above: Performed By: #### R ENAL #### [address] [place] [address] Potassium [Moles/Vol] 4.2 mmol/L Normal 3.4-4.8 [facility] Comment on above: Performed By: #### R ENAL #### [address] [place] [address] Sodium [Moles/Vol] 140 mmol/L Normal 133-142 [facility] Comment on above: Performed By: #### R ENAL #### [address] [address] Urea nitrogen [Mass/Vol] 23 mg/dL Normal 8-26 [facility] Comment on above: Performed By: #### R ENAL #### [address] [address] Urea nitrogen/Creatinine [Mass ratio] 14.0 mg/mg Normal 10.0-20.0 [facility] Comment on above: Performed By: #### R ENAL #### [address] [address] UA w Culture if Indon 2019 Color (U) Yellow Normal [facility] Comment on above: Performed By: #### T IBC #### [address] [address] Glucose (U) [Mass/Vol] Negative Normal Negative [facility] Comment on above: Performed By: #### T IBC #### [address] [address] Ketones Ql (U) Negative Normal Negative [facility] Comment on above: Performed By: #### T IBC #### [address] [place] [address] UA Blood Moderate Abnormal Negative [facility] Comment on above: Performed By: #### T IBC #### [address] [place] [address] UA Clarity Hazy Normal [facility] Comment on above: Performed By: #### T IBC #### [address] [place] [address] UA Leukocyte Esterase Negative Normal Negative [facility] Comment on above: Performed By: #### T IBC #### [address] [address] UA Nitrite Negative Normal Negative [facility] Comment on above: Performed By: #### T IBC #### [address] [address] UA pH 5.0 Normal 4.5 - 7.8 [facility] Comment on above: Performed By: #### T IBC #### [address] [address] UA Protein 30 mg/dL Abnormal Negative [facility] Comment on above: Performed By: #### T IBC #### [address] [address] UA Source Clean Catch Normal [facility] Comment on above: Performed By: #### T IBC #### [address] [address] UA Spec Grav 1.014 Normal 1.003-1.035 [facility] Comment on above: Performed By: #### T IBC #### [address] [address] UA Urobilinogen 0.2 mg/dL Normal 0.2 - 1.0 [facility] Comment on above: Performed By: #### T IBC #### [address] [address] Urobilinogen Qn (U) Negative Normal Negative [facility] Comment on above: Performed By: #### T IBC #### [address] [address] .eGFRon 02-12-2020 eGFR AA 44 mL/min/1.73m? Low >=60 [facility] Comment on above: Order Comment: Order added by Discern rule Result Comment: Resu lt = 0-14.9 mL/min/1.73 m2 Kidney failure or Dialysis Result = 15-29 mL/min/1.73 m2 Severe decrease in GFR Result = 30-59 mL/min/1.73 m2 Moderate decrease in GFR Result >= 60 mL/min/1.73 m2 Normal or increased GFR Performed By: #### E GFR #### [address] [place] [address] eGFR Non-AA 36 mL/min/1.73m? Low >=60 [facility] Comment on above: Order Comment: Order [...] dosing. Performed By: #### E GFR #### [address] [address] CBCon 02-12-2020 Erythrocyte distribution width (RBC) [Ratio] 14.3 % Normal 11.6-14.8 [facility] Comment on above: Performed By: #### T IBC #### [address] [address] Hematocrit (Bld) [Volume fraction] 28.6 % Low 36.0-46.0 [facility] Comment on above: Performed By: #### T IBC #### [address] [address] Hemoglobin (Bld) [Mass/Vol] 9.4 g/dL Low 12.0-16.0 [facility] Comment on above: Performed By: #### T IBC #### [address] [address] MCH (RBC) [Entitic mass] 31.0 pg Normal 27.0-35.0 [facility] Comment on above: Performed By: #### T IBC #### [address] [address] MCHC (RBC) [Mass/Vol] 33.0 % Normal 31.0-37.0 [facility] Comment on above: Performed By: #### T IBC #### [address] [address] MCV (RBC) [Entitic vol] 93.9 fL Normal 80.0-100.0 [facility] Comment on above: Performed By: #### T IBC #### [address] [address] Platelet mean volume (Bld) [Entitic vol] 8.7 fL Normal 6.7-10.6 [facility] Comment on above: Performed By: #### T IBC #### [address] [address] Platelets (Bld) [#/Vol] 136 x10*3/mcL Low 150-350 [facility] Comment on above: Performed By: #### T IBC #### [address] [address] RBC (Bld) [#/Vol] 3.05 x10*6/mcL Low 3.80-5.20 [facility] Comment on above: Performed By: #### T IBC #### [address] [address] WBC (Bld) [#/Vol] 11.4 x10*3/mcL High 4.5-11.0 [facility] Comment on above: Performed By: #### T IBC #### [address] [address] Magnesiumon 02-12-2020 Magnesium [Mass/Vol] 2.5 mg/dL High 1.7-2.4 [facility] Comment on above: Performed By: #### M G #### [address] [address] Nephrology Progress Noteon 0 02-12-2020 Nephrology Progress [...] pulmonary process. Signed By: Manolo KUMAR, Benny XR Femur 2 or More Views Left [...] mg, 1 mL, IV Push, q2min, PRN [place] 5 mg-325 mg oral tablet, 1 tabs, [...] for insurance for rehab Electronically signed by Beti GEORGEKenyatta DE 02/12/20 13:14 EDT The patient was personally evaluated by myself and the case was discussed with Stephanie Marrufo CNP. I agree with the above noted assessment and plans. Improved admission CKD, baseline stage IV. Presently with some delirium that is possibly from an infectious process, or stress from patient's current clinical incident with her left intertrochanteric fracture Electronically signed by KerriDilan walters DO Juliarominalamar 02/12/20 21:34 EDT Normal [facility] Orthopedic Progress Noteon 0 02-12-2020 Orthopedic [...] mg, 1 mL, IV Push, q2min, PRN [place] 5 mg-325 mg oral tablet, 1 tabs, [...] Naman Edmond PA-C 02/12/20 11:16 EDT Normal [facility] PTH-INTon 02-12-2020 PTH Intact 94 pg/mL High 12-88 [facility] Comment on above: Performed By: #### P HOS #### [address] [address] Procalcitonin Levelon 2019 Procalcitonin Lvl 0.54 ng/mL High <=0.49 [facility] Comment on above: Result Comment: < [...] hours. Performed By: #### E GFR #### [address] [address] Progress Note - [employer] Progress Note - [...] mg, 1 mL, IV Push, q2min, PRN [place] 5 mg-325 mg oral tablet, 1 tabs, [...] Anticipated Discharge Date: Undetermined Electronically signed by Beti MOTLEY Kenyatta Jaquelin 02/12/20 10:03 EDT Normal [facility] Progress Note-Nurseon 2019 Progress Note-Nurse Attempted to administer morning meds and new meds that were ordered by nephrology. Patient is currently confused and combative, and refusing all patient care. Electronically signed by Estrella Mery M 02/12/20 13:24 EDT Normal [facility] Renal Panelon 02-12-2020 Albumin [Mass/Vol] 3.6 g/dL Normal 3.2-4.9 [facility] Comment on above: Result Comment: [facility] Laboratory updated the methodology used for albumin testing on 05/04/18. Albumin measurement was performed using a bromcresol purple dye-binding assay. Performed By: #### P HOS #### [address] [address] Anion gap [Moles/Vol] 14 mmol/L Normal 7-17 [facility] Comment on above: Performed By: #### P HOS #### [address] [address] Calcium [Mass/Vol] 8.1 mg/dL Low 8.5-10.3 [facility] Comment on above: Performed By: #### P HOS #### [address] [address] Chloride [Moles/Vol] 98 mmol/L Normal 98-110 [facility] Comment on above: Performed By: #### P HOS #### [address] [address] CO2 [Moles/Vol] 26 mmol/L Normal 22-32 [facility] Comment on above: Performed By: #### P HOS #### [address] [address] Creatinine [Mass/Vol] 1.39 mg/dL High 0.44-1.03 [facility] Comment on above: Performed By: #### P HOS #### [address] [address] Glucose [Mass/Vol] 134 mg/dL High 70-99 [facility] Comment on above: Performed By: #### P HOS #### [address] [address] Phosphate [Mass/Vol] 2.6 mg/dL Normal 2.5-4.6 [facility] Comment on above: Performed By: #### P HOS #### [address] [address] Potassium [Moles/Vol] 3.8 mmol/L Normal 3.4-4.8 [facility] Comment on above: Performed By: #### P HOS #### [address] [address] Sodium [Moles/Vol] 134 mmol/L Normal 133-142 [facility] Comment on above: Performed By: #### P HOS #### [address] [address] Urea nitrogen [Mass/Vol] 21 mg/dL Normal 8-26 [facility] Comment on above: Performed By: #### P HOS #### [address] [address] Urea nitrogen/Creatinine [Mass ratio] 15.1 mg/mg Normal 10.0-20.0 [facility] Comment on above: Performed By: #### P HOS #### [address] [address] XR Chest 1 Viewon 02-12-2020 XR Chest [...] Electronically Signed in Other Vendor System) Normal [facility] .eGFRon 02-11-2020 eGFR Non-AA 33 mL/min/1.73m? Low >=60 [facility] Comment on above: Order Comment: Order [...] dosing. Performed By: #### F OL #### [address] [address] eGFR AA 40 mL/min/1.73m? Low >=60 [facility] Comment on above: Order Comment: Order added by Discern rule Result Comment: Resu lt = 0-14.9 mL/min/1.73 m2 Kidney failure or Dialysis Result = 15-29 mL/min/1.73 m2 Severe decrease in GFR Result = 30-59 mL/min/1.73 m2 Moderate decrease in GFR Result >= 60 mL/min/1.73 m2 Normal or increased GFR Performed By: #### F OL #### [address] [address] B12on 02-11-2020 Cobalamin (Vitamin B12) [Mass/Vol] 135 pg/mL Low 180-914 [facility] Comment on above: Order Comment: ok to add on to am labs per [place]02/11/2020 12:08:01 EDT cbowman Performed By: #### T IBC #### [address] [address] CBCon 02-11-2020 Erythrocyte distribution width (RBC) [Ratio] 14.2 % Normal 11.6-14.8 [facility] Comment on above: Performed By: #### P HOS #### [address] [address] Hematocrit (Bld) [Volume fraction] 32.5 % Low 36.0-46.0 [facility] Comment on above: Performed By: #### P HOS #### [address] [address] Hemoglobin (Bld) [Mass/Vol] 10.6 g/dL Low 12.0-16.0 [facility] Comment on above: Performed By: #### P HOS #### [address] [address] MCH (RBC) [Entitic mass] 30.9 pg Normal 27.0-35.0 [facility] Comment on above: Performed By: #### P HOS #### [address] [address] MCHC (RBC) [Mass/Vol] 32.6 % Normal 31.0-37.0 [facility] Comment on above: Performed By: #### P HOS #### [address] [address] MCV (RBC) [Entitic vol] 94.6 fL Normal 80.0-100.0 [facility] Comment on above: Performed By: #### P HOS #### [address] [address] Platelet mean volume (Bld) [Entitic vol] 8.5 fL Normal 6.7-10.6 [facility] Comment on above: Performed By: #### P HOS #### [address] [address] Platelets (Bld) [#/Vol] 156 x10*3/mcL Normal 150-350 [facility] Comment on above: Performed By: #### P HOS #### [address] [address] RBC (Bld) [#/Vol] 3.44 x10*6/mcL Low 3.80-5.20 [facility] Comment on above: Performed By: #### P HOS #### [address] [address] WBC (Bld) [#/Vol] 11.3 x10*3/mcL High 4.5-11.0 [facility] Comment on above: Performed By: #### P HOS #### [address] [address] Ferritinon 02-11-2020 Ferritin [Mass/Vol] 75.8 ng/mL Normal 11.0-306.8 [facility] Comment on above: Performed By: #### T IBC #### [address] [address] Folate Lvlon 02-11-2020 Folate Lvl 4.0 ng/mL Low >=5.9 [facility] Comment on above: Result Comment: A [facility] Technical Consultation has determined that deficient Folate concentrations are considered to be less than 4 ng/mL. Performed By: #### F OL #### [address] [address] Magnesiumon 02-11-2020 Magnesium [Mass/Vol] 1.6 mg/dL Low 1.7-2.4 [facility] Comment on above: Performed By: #### E GFR #### [facility] [address] [place] [address] Nephrology Progress Noteon 0 02-11-2020 Nephrology Progress [...] HS (at bedtime) calcitriol, 0.25 mcg, Oral, // hydrALAZINE, 25 mg, Oral, TID HYDROmorphone, 0.5 mg, 0.5 mL, IV Push, q2hr, PRN Lovenox, 30 mg, 0.3 mL, Subcutaneous, q24hr meclizine, 25 mg, Oral, TID, PRN naloxone, 0.4 mg, 1 mL, IV Push, q2min, PRN [place] 5 mg-325 mg oral tablet, 1 tabs, [...] Dose: 02/11/20 14:00:00 EDT, [facility] Electron[facility] signed by Dilan Chew DO Juliarominalamar 02/11/20 20:26 EDT Normal [facility] Orthopedic Progress Noteon 0 02-11-2020 Orthopedic [...] Date: 02/11/20 13:56:00 EDT, [facility], Prophylaxis- Pre/Post-Op enoxaparin, 30 mg, Subcutaneous, Injection, q24hr, First Dose: 02/11/20 13:00:00 EDT, Dispense From Location: Qieklvy-FAN-3C hydrocodone-acetaminop hen, 1 tabs, Oral, Tab, q4hr, PRN moderate pain [4-6 on pain scale], First Dose: 02/10/20 13:57:00 EDT, Dispense From Location: Anxgqqr-[id number] sodium chloride, 10 mL, IV Push, Injection, As Indicated, PRN flush, First Dose: 02/10/20 14:05:00 EDT, Dispense From Location: [id number] Basic Metabolic Profile Below the Knee Graduated [...] Chele Jordan MD 02/11/20 09:11 EDT Normal [facility] Progress Note - [employer] Progress Note [...] mg, 1 mL, IV Push, q2min, PRN [place] 5 mg-325 mg oral tablet, 1 tabs, [...] by Sneha Martell 02/11/20 17:37 EDT Normal [facility] Renal Panelon 02-11-2020 Albumin [Mass/Vol] 2.9 g/dL Low 3.2-4.9 [facility] Comment on above: Result Comment: [facility] Laboratory updated the methodology used for albumin testing on 05/04/18. Albumin measurement was performed using a bromcresol purple dye-binding assay. Performed By: #### F OL #### [address] [address] Anion gap [Moles/Vol] 12 mmol/L Normal 7-17 [facility] Comment on above: Performed By: #### F OL #### [address] [address] Calcium [Mass/Vol] 8.0 mg/dL Low 8.5-10.3 [facility] Comment on above: Performed By: #### F OL #### [address] [address] Chloride [Moles/Vol] 99 mmol/L Normal 98-110 [facility] Comment on above: Performed By: #### F OL #### [address] [address] CO2 [Moles/Vol] 25 mmol/L Normal 22-32 [facility] Comment on above: Performed By: #### F OL #### [address] [address] Creatinine [Mass/Vol] 1.51 mg/dL High 0.44-1.03 [facility] Comment on above: Performed By: #### F OL #### [address] [address] Glucose [Mass/Vol] 193 mg/dL High 70-99 [facility] Comment on above: Performed By: #### F OL #### [address] [address] Phosphate [Mass/Vol] 2.2 mg/dL Low 2.5-4.6 [facility] Comment on above: Performed By: #### F OL #### [address] [address] Potassium [Moles/Vol] 4.0 mmol/L Normal 3.4-4.8 [facility] Comment on above: Performed By: #### F OL #### [address] [address] Sodium [Moles/Vol] 132 mmol/L Low 133-142 [facility] Comment on above: Performed By: #### F OL #### [address] [address] Urea nitrogen [Mass/Vol] 29 mg/dL High 8-26 [facility] Comment on above: Performed By: #### F OL #### [address] [address] Urea nitrogen/Creatinine [Mass ratio] 19.2 mg/mg Normal 10.0-20.0 [facility] Comment on above: Performed By: #### F OL #### [address] [address] TIBCon 02-11-2020 Iron [Mass/Vol] 22 ug/dL Low 28-170 [facility] Comment on above: Performed By: #### T IBC #### [address] [address] Iron Sat 7.6 % Low >=16.0 [facility] Comment on above: Performed By: #### T IBC #### [address] [address] [address] TIBC 288 mcg/dL Normal 261-478 [facility] Comment on above: Performed By: #### T IBC #### [address] [address] Transferrin [Mass/Vol] 193 mg/dL Normal 192-382 [facility] Comment on above: Performed By: #### T IBC #### [address] [address] XR Femur 2 or More Views Lef [...] Electronically Signed in Other Vendor System) Normal [facility] .eGFRon 02-10-2020 eGFR Non-AA 26 mL/min/1.73m? Low >=60 [facility] Comment on above: Result Comment: Resu [...] dosing. Performed By: #### T IBC #### [place] [address] eGFR AA 31 mL/min/1.73m? Low >=60 [facility] Comment on above: Result Comment: Resu lt = 0-14.9 mL/min/1.73 m2 Kidney failure or Dialysis Result = 15-29 mL/min/1.73 m2 Severe decrease in GFR Result = 30-59 mL/min/1.73 m2 Moderate decrease in GFR Result >= 60 mL/min/1.73 m2 Normal or increased GFR Performed By: #### T IBC #### [address] [address] CBC w/ Diffon 02-10-2020 Erythrocyte distribution width (RBC) [Ratio] 14.8 % Normal 11.6-14.8 [facility] Comment on above: Performed By: #### P HOS #### [address] [address] Hematocrit (Bld) [Volume fraction] 38.8 % Normal 36.0-46.0 [facility] Comment on above: Performed By: #### P HOS #### [address] [address] Hemoglobin (Bld) [Mass/Vol] 12.4 g/dL Normal 12.0-16.0 [facility] Comment on above: Performed By: #### P HOS #### [address] [address] MCH (RBC) [Entitic mass] 30.0 pg Normal 27.0-35.0 [facility] Comment on above: Performed By: #### P HOS #### [address] [address] MCHC (RBC) [Mass/Vol] 32.1 % Normal 31.0-37.0 [facility] Comment on above: Performed By: #### P HOS #### [address] [address] MCV (RBC) [Entitic vol] 93.5 fL Normal 80.0-100.0 [facility] Comment on above: Performed By: #### P HOS #### [address] [address] Platelet mean volume (Bld) [Entitic vol] 8.2 fL Normal 6.7-10.6 [facility] Comment on above: Performed By: #### P HOS #### [address] [address] Platelets (Bld) [#/Vol] 198 x10*3/mcL Normal 150-350 [facility] Comment on above: Performed By: #### P HOS #### [address] [address] RBC (Bld) [#/Vol] 4.15 x10*6/mcL Normal 3.80-5.20 [facility] Comment on above: Performed By: #### P HOS #### [address] [address] WBC (Bld) [#/Vol] 11.1 x10*3/mcL High 4.5-11.0 [facility] Comment on above: Performed By: #### P HOS #### [address] [address] CMPon 02-10-2020 Albumin [Mass/Vol] 3.7 g/dL Normal 3.2-4.9 [facility] Comment on above: Result Comment: [facility] Laboratory updated the methodology used for albumin testing on 05/04/18. Albumin measurement was performed using a bromcresol purple dye-binding assay. Performed By: #### T IBC #### [address] [address] Albumin/Globulin [Mass ratio] 1.3 {ratio} Normal 1.1-2.2 [facility] Comment on above: Performed By: #### T IBC #### [address] [address] Alk Phos 89 IU/L Normal 32-91 [facility] Comment on above: Performed By: #### T IBC #### [address] [address] ALT [Catalytic activity/Vol] 20 U/L Normal 14-54 [facility] Comment on above: Performed By: #### T IBC #### [address] [address] Anion gap [Moles/Vol] 17 mmol/L Normal 7-17 [facility] Comment on above: Performed By: #### T IBC #### [address] [address] AST [Catalytic activity/Vol] 21 U/L Normal 15-41 [facility] Comment on above: Performed By: #### T IBC #### [address] [address] Bili Total 0.9 mg/dL Normal 0.3-1.2 [facility] Comment on above: Performed By: #### T IBC #### [address] [address] Calcium [Mass/Vol] 8.8 mg/dL Normal 8.5-10.3 [facility] Comment on above: Performed By: #### T IBC #### [address] [address] Chloride [Moles/Vol] 102 mmol/L Normal 98-110 [facility] Comment on above: Performed By: #### T IBC #### [facility] [address] [place] [address] CO2 [Moles/Vol] 24 mmol/L Normal 22-32 [facility] Comment on above: Performed By: #### T IBC #### [facility] [address] [place] [address] Creatinine [Mass/Vol] 1.87 mg/dL High 0.44-1.03 [facility] Comment on above: Performed By: #### T IBC #### [facility] [address] [place] [address] Glucose [Mass/Vol] 111 mg/dL High 70-99 [facility] Comment on above: Performed By: #### T IBC #### [facility] [address] [place] [address] Potassium [Moles/Vol] 5.2 mmol/L High 3.4-4.8 [facility] Comment on above: Performed By: #### T IBC #### [facility] [address] [place] [address] Protein [Mass/Vol] 6.6 g/dL Normal 6.5-8.1 [facility] Comment on above: Performed By: #### T IBC #### [facility] [address] [place] [address] Sodium [Moles/Vol] 138 mmol/L Normal 133-142 [facility] Comment on above: Performed By: #### T IBC #### [facility] [address] [place] [address] Urea nitrogen [Mass/Vol] 41 mg/dL High 8-26 [facility] Comment on above: Performed By: #### T IBC #### [address] [address] Urea nitrogen/Creatinine [Mass ratio] 21.9 mg/mg High 10.0-20.0 [facility] Comment on above: Performed By: #### T IBC #### [address] [address] Diff Autoon 02-10-2020 Baso Absolute 0.0 x10*3/mcL Normal 0.0-0.2 [facility] Comment on above: Performed By: #### T IBC #### [address] [address] Basophils/100 WBC (Bld) 0.2 % Normal 0.0-1.5 [facility] Comment on above: Performed By: #### T IBC #### [address] [address] Eos Absolute 0.0 x10*3/mcL Normal 0.0-0.4 [facility] Comment on above: Performed By: #### T IBC #### [address] [address] Eosinophils/100 WBC (Bld) 0.0 % Normal 0.0-5.4 [facility] Comment on above: Performed By: #### T IBC #### [address] [address] Lymphocytes (Bld) [#/Vol] 1.2 x10*3/mcL Normal 1.0-4.8 [facility] Comment on above: Performed By: #### T IBC #### [address] [address] Lymphocytes/100 WBC (Bld) 10.7 % Low 27.2-40.8 [facility] Comment on above: Performed By: #### T IBC #### [address] [address] [place] Absolute 1.2 x10*3/mcL High 0.1-1.1 [facility] Comment on above: Performed By: #### T IBC #### [address] [address] Monocytes/100 WBC (Bld) 10.7 % Normal 3.7-11.9 [facility] Comment on above: Performed By: #### T IBC #### [facility] [address] [place] [address] Neutro Absolute 8.7 x10*3/mcL High 1.8-7.7 [facility] Comment on above: Performed By: #### T IBC #### [address] [address] Neutro Auto 78.4 % High 47.2-70.8 [facility] Comment on above: Performed By: #### T IBC #### [address] [address] Magnesiumon 02-10-2020 Magnesium [Mass/Vol] 2.0 mg/dL Normal 1.7-2.4 [facility] Comment on above: Performed By: #### M G #### [address] [address] Nephrology Consultationon Nephrology Consultation Reason for Consultation Advanced renal dysfunction CKD stage IV History of Present Illness Patient is an 84-year-old female who is well known to the [facility] and has a known history of [...] activation of EMS. Patient was taken to [facility] ER where she had some scans performed and was found to she had sustained a left intertrochanteric fracture. She was subsequently transferred to [facility] where she has been seen by Dr. Jordan and at time of examination , she is back from her surgery. She denies having any significant pain, she did report some discomfort, she denies having any chest pain, denies any arrhythmia, denies any fever or chills, nausea or vomiting. being managed from [place] emergency emergency department for left intertrochanteric hip [...] Date: 02/11/20 4:48:00 EDT, Dispense From Location: BV 6NU, 1.69, m2 hydrALAZINE, 50 mg, Oral, Tab, TID, First Dose: 02/10/20 22:00:00 EDT, Dispense From Location: [place] Magnesium Level Phosphorus Level Renal Function Panel [...] mg, 1 mL, IV Push, q2min, PRN [place] 5 mg-325 mg oral tablet, 1 tabs, [...] Phos 3.8 (FEBRUARY 09) Electronically signed by Jeevan NIELSON Herberthdavid [facility] 02/10/20 23:31 EDT Normal [facility] Operative Reporton 0 Operative Report Indication for Surge ry Patient is an 84-year-old with a left hip fracture. Treatment options were discussed with her as well as risks and benefits and she elected to proceed with surgery. Preoperative Diagnosis Left hip intertrochanteric fracture Postoperative Diagnosis Left hip intertrochanteric fracture Operation Left hip intramedullary nail Surgeon(s) Nikki Dance Therapist None Anesthesia Spinal Estimated Blood Loss 75 [...] Chele Jordan MD 02/10/20 13:55 EDT Normal [facility] Orthopedic Consultationon Orthopedic Consultation Reason for Consultation Left hip fracture History of Present Illness Patient was walking yesterday when she lost her balance and fell on to her left hip with pain and inability to bear weight. She presented to [facility] ER where xrays revealed a left hip fracture. Patient was transferred to [facility] for treatment of this injury. Patient denies [...] Chele Jordan MD 02/10/20 12:20 EDT Normal [facility] Pharmacy Progress Noteon Pharmacy Progress Note [...] by Karen Uriarte 02/10/20 18:35 EDT Normal [facility] Phosphoruson 02-10-2020 Phosphate [Mass/Vol] 3.8 mg/dL Normal 2.5-4.6 [facility] Comment on above: Performed By: #### P HOS #### [facility] [address] [place] [id number] Progress Note - [employer] Progress Note - [...] mg, 1 mL, IV Push, q2min, PRN [place] 5 mg-325 mg oral tablet, 1 tabs, [...] she is not - Reported creatinine at [facility] was 2.42, creatinine significantly improved today [...] by Sneha Martell 02/10/20 16:09 EDT Normal [facility] APTHiginio 02-09-2020 aPTT Coag (Nelsond) [Time] 27.1 s [facility] [place], [place] CBC Auto Differentialon 01-25 Basophils (Bld) [#/Vol] 10*3/uL [place] Basophils/100 WBC (Bld) 0 % 0 - 2 % [place] Differential Type NOT REPORTED [place] Eosinophils (Bld) [#/Vol] 0.10 10*3/uL [place] Eosinophils/100 WBC (Bld) 1 % 1 - 4 % [place] Erythrocyte distribution width (RBC) [Ratio] 14.0 % 11.8 - 14.4 % [place] Hematocrit (Bld) [Volume fraction] 41.9 % 36.3 - 47.1 % [place] Hemoglobin (Bld) [Mass/Vol] 13.0 g/dL 11.9 - 15.1 g/dL [place] Immature granulocytes (Bld) [#/Vol] 0 % 0 [place] Immature granulocytes (Bld) [#/Vol] 10*3/uL [place] Lymphocytes (Bld) [#/Vol] 2.13 10*3/uL [place] Lymphocytes/100 WBC (Bld) 26 % 24 - 43 % [place] MCH (RBC) [Entitic mass] 30.1 pg 25. 2 - 33.5 pg [place] MCHC (RBC) [Mass/Vol] 31.0 g/dL 28.4 - 34.8 g/dL [place] MCV (RBC) [Entitic vol] 97.0 fL 82.6 - 102.9 fL [place] Monocytes (Bld) [#/Vol] 0.78 10*3/uL [place] Monocytes/100 WBC (Bld) 10 % 3 - 12 % [place] Platelet mean volume (Bld) [Entitic vol] 10.7 fL 8.1 - 13.5 fL [place] Platelets (Bld) [#/Vol] NOT REPORTED [place] Platelets (Bld) [#/Vol] 197 10*3/uL [place] RBC (Bld) [#/Vol] 4.32 10*6/uL 3.95 - 5.1 1 m/uL [place] RBC morphology finding Nom (Bld) NOT REPORTED [place] Segmented neutrophils/100 WBC (Bld) 63 % 36 - 65 % [place] Segs Absolute 5.15 [place] WBC (Bld) [#/Vol] 0.0 10*3/uL 0.0 per 10 0 WBC [place] WBC (Bld) [#/Vol] 8.2 10*3/uL [place] WBC Morphology NOT REPORTED [place] CERVICAL SPINE WO CONTRAS Ton 02-09-2020 Damion, Mhpn Incoming Radiant Results From [employer] - 02/09/2020 12:08 PM EDT EXAMINATION: CT [...] with left bony foraminal narrowing at C5-6. [place] EXAMINATION: CT OF T HE CERVICAL [...] The lung apices are without acute process. [place] No acute fracture or malalignment of the cervical spine. Multilevel degenerative disc disease with associated uncovertebral and facet hypertrophy with left bony foraminal narrowing at C5-6. [place] CT Head WO Contraston 2019 [place], [place] Incoming Radiant Results From [employer] - 02/09/2020 11:56 AM EDT EXAMINATION: CT [...] acute CT abnormality identified in the brain. [place] EXAMINATION: CT OF T HE HEAD [...] left posterosuperior scalp injury. No underlying fracture. [place] Left posterosuperior scalp injury without underlying fracture. No acute CT abnormality identified in the brain. [place] Comprehensive Metabolic Pane l w/ Reflex to MGon 02-09-2020 Albumin [Mass/Vol] 4.2 g/dL 3.5 - 5.2 g/dL [place] Albumin/Globulin [Mass ratio] 1.6 {ratio} [place] ALP [Catalytic activity/Vol] 97 U/L 35 - 104 U/L [place] ALT [Catalytic activity/Vol] 16 U/L 5 - 33 U/L [place] Anion gap [Moles/Vol] 16 mmol/L 9 - 17 mmol/L [place] AST [Catalytic activity/Vol] 19 U/L <32 [place] Bilirubin Ql (U) 0.38 mg/dL 0.3 - 1.2 mg/dL [place] Bun/Cre Ratio 18 [place] Calcium [Mass/Vol] 9.3 mg/dL 8.6 - 10. 4 mg/dL [place] Chloride [Moles/Vol] 102 mmol/L 98 - 10 7 mmol/L [place] CO2 [Moles/Vol] 23 mmol/L 20 - 31 mmol/L [place] Creatinine [Mass/Vol] 2.42 mg/dL High 0.5 - 0.9 mg/dL [place] GFR 23 mL/min Low >60 [place] GFR Non- 19 mL/min Low >60 [place] Glucose [Mass/Vol] 132 mg/dL High 70 - 99 mg/dL [place] Interpretation and review of laboratory results Abnormal [place] Potassium [Moles/Vol] 4.5 mmol/L 3.7 - 5.3 mmol/L [place] Protein [Mass/Vol] 6.8 g/dL 6.4 - 8.3 g/dL [place] Sodium [Moles/Vol] 141 mmol/L 135 - 144 mmol/L [place] Urea nitrogen [Mass/Vol] 43 mg/dL High 8 - 23 mg/dL [place] History and Physicalon 02-08 History and Physical Chief Complaint Fall with left hip fracture. History of Present Illness Patient is a 84-year-old female being managed from [place] emergency emergency department for left intertrochanteric hip [...] and oriented, well nourished, no acute distress. [place] Eye: PERRL, EOMI, normal conjunctiva. HENT: Normocephalic, [...] every 4 hours as needed for nausea. business services assistant consult for discharge planning. 2. Fall See #1. 3. Laceration of head Scabbed. 4. Hypertension Continue hydrochlorothiazide and verapamil. 5. ESRD on dialysis Creatine in [place] was 2.42 Consult nephrology in the morning. 6. Hyperlipidemia Continue pravastatin. Medical Necessity for the hospitilization: Left intertrochanteric hip Fracture Complication Risk: Debility and . Activity at baseline: Independent Anticipated Discharge [facility] Anticipated Discharge Date: Likely greater than [...] by Anshul Jack 02/09/20 18:20 EDT Normal [facility] Metabolic Panelon 02-09-2020 GFR/1.73 sq M predicted among non-blacks MDRD (S/P/Bld) [Vol rate/Area] [place] Comment on above: Average GFR for 70 o r more years old: 75 mL/min/1.73sq m Chronic Kidney Disease: <60 mL/min/1.73sq m Kidney failure: <15 mL/min/1.73sq m eGFR calculated using average adult body mass. Additional eGFR calculator available at: http://www.[employer]/multiple_crcl_2012.htm Stage 1: Some kidney damage normal GFR [...] by Fer Bautista 02/09/20 22:53 EDT Normal [facility] Protime-INRon 02-09-2020 INR Coag (PPP) [Relative time] 1.0 {INR} [facility] [place] PT Coag (PPP) [Time] 10.7 s [facility] [place] XR CHEST PORTABLEon 02-09-20 20 [place], Mhpn Incoming Radiant Results From [employer] - 02/09/2020 11:50 AM EDT EXAMINATION: ONE XRAY VIEW OF THE CHEST 02/09/2020 11:43 am COMPARISON: 09/27/2017 HISTORY: ORDERING SYSTEM PROVIDED HISTORY: for admission TECHNOLOGIST PROVIDED HISTORY: for admission FINDINGS: The lungs are without acute focal process. There is no effusion or pneumothorax. The cardiomediastinal silhouette is stable. The osseous structures are stable. IMPRESSION: No acute process. [facility] [place] EXAMINATION: ONE XRA Y VIEW OF THE CHEST 02/09/2020 11:43 am COMPARISON: 09/27/2017 HISTORY: ORDERING SYSTEM PROVIDED HISTORY: for admission TECHNOLOGIST PROVIDED HISTORY: for admission FINDINGS: The lungs are without acute focal process. There is no effusion or pneumothorax. The cardiomediastinal silhouette is stable. The osseous structures are stable. [facility] [place] XR HIP 2-3 VW W PELVIS LEFTo n 02-09-2020 Intertrochanteric le ft hip fracture. [facility] [place] Damion, Mhpn Incoming Radiant Results From [employer] - 02/09/2020 3:31 PM EDT EXAMINATION: ONE [...] vascular calcifications. IMPRESSION: Intertrochanteric left hip fracture. [place] EXAMINATION: ONE XRA Y VIEW OF [...] within the acetabulum. There are vascular calcifications. [place] CBCon 02-02-2020 Erythrocyte distribution width (RBC) [Ratio] 14.1 % 11.8 - 14.4 % [place] Hematocrit (Bld) [Volume fraction] 44.3 % 36.3 - 47.1 % [place] Hemoglobin (Bld) [Mass/Vol] 13.4 g/dL 11.9 - 15.1 g/dL [place] MCH (RBC) [Entitic mass] 30.2 pg 25. 2 - 33.5 pg [place] MCHC (RBC) [Mass/Vol] 30.2 g/dL 28.4 - 34.8 g/dL [place] MCV (RBC) [Entitic vol] 100.0 fL 82.6 - 102.9 fL [place] Platelet mean volume (Bld) [Entitic vol] 10.6 fL 8.1 - 13.5 fL [place] Platelets (Bld) [#/Vol] 231 10*3/uL [place] RBC (Bld) [#/Vol] 4.43 10*6/uL 3.95 - 5.1 1 m/uL [place] WBC (Bld) [#/Vol] 8.8 10*3/uL [place] WBC (Bld) [#/Vol] 0.0 10*3/uL 0.0 per 10 0 WBC [place] Creatinine, Random Urineon 0 02-02-2020 Creatinine, Ur 148.3 mg/dL 28 - 217 mg/dL [place] Magnesiumon 02-02-2020 Magnesium [Mass/Vol] 2.0 mg/dL 1.6 - 2 .6 mg/dL [place] Metabolic Panelon 02-02-2020 GFR/1.73 sq M predicted among non-blacks MDRD (S/P/Bld) [Vol rate/Area] [place] Comment on above: Stage 1: Some [...] body mass. Additional eGFR calculator available at: http://www.[employer]/multiple_crcl_2012.htm PTH, Int[place]on 02-02-2020 Interpretation and review of laboratory results Abnormal [place] Pth Intact 103.6 pg/mL High 15 - 65 pg/mL [place] Comment on above: SAMPLES FROM PATIENT S ROUTINELY RECEIVING HIGH DOSE BIOTIN THERAPY MAY SHOW FALSELY DEPRESSED RESULTS. ADDITIONAL INFORMATION MAY BE REQUIRED FOR DIAGNOSIS. Protein, urine, randomon Protein (U) [Mass/Vol] 21 mg/dL [place] Comment on above: No normal range esta blished. Renal Function Panelon 02-01 Albumin [Mass/Vol] 4.6 g/dL 3.5 - 5.2 g/dL [place] Anion gap [Moles/Vol] 15 mmol/L 9 - 17 mmol/L [place] Bun/Cre Ratio 17 [place] Calcium [Mass/Vol] 9.9 mg/dL 8.6 - 10. 4 mg/dL [place] Chloride [Moles/Vol] 102 mmol/L 98 - 10 7 mmol/L [place] CO2 [Moles/Vol] 23 mmol/L 20 - 31 mmol/L [place] Creatinine [Mass/Vol] 1.69 mg/dL High 0.5 - 0.9 mg/dL [place] GFR 35 mL/min Low >60 [place] GFR Non- 29 mL/min Low >60 [place] Glucose [Mass/Vol] 120 mg/dL High 70 - 99 mg/dL [place] Interpretation and review of laboratory results Abnormal [place] Phosphate [Mass/Vol] 2.7 mg/dL 2.6 - 4 .5 mg/dL [place] Potassium [Moles/Vol] 4.0 mmol/L 3.7 - 5.3 mmol/L [place] Sodium [Moles/Vol] 140 mmol/L 135 - 144 mmol/L [place] Urea nitrogen [Mass/Vol] 28 mg/dL High 8 - 23 mg/dL [place] Uric Acidon 02-02-2020 Urate [Mass/Vol] 5.5 mg/dL 2.4 - 5.7 mg/dL [place] Urinalysis with Microscopico n 02-02-2020 Amorphous, UA NOT REPORTED None [place] Bacteria, UA 3+ Abnormal None [place] Bilirubin Urine Negative NEGATIVE [place] Casts UA NOT REPORTED /LPF [place] Color, UA YELLOW YELLOW [place] Crystals, UA NOT REPORTED None /HPF [place] Epithelial Cells UA 10 TO 20 [place] Glucose, Ur Negative NEGATIVE [place] Interpretation and review of laboratory results Abnormal [facility] [place] Ketones Ql (U) Negative NEGATIVE [place] Leukocyte esterase Test strip Ql (U) Negative NEGATIVE [place] Mucus, UA NOT REPORTED None [place] Nitrite, Urine Positive Abnormal NEGATIVE [place] Other Observations UA NOT REPORTED NOT REQ. [facility] [place] pH, UA 5.5 [place] Protein (U) [Mass/Vol] Negative NEGATIVE [place] RBC (U) [#/Vol] None [facility] [place] Renal Epithelial, UA NOT REPORTED 0 /HPF [facility] [employer] [place] Specific [place], UA 1.020 [facility] [place] Trichomonas, UA NOT REPORTED None [place] Turbidity UA CLEAR CLEAR [place] Urinalysis Comments NOT REPORTED [place] Urine Hgb Negative NEGATIVE [place] Urobilinogen, Urine Normal Normal [place] WBC, UA 2 TO 5 [place] Yeast, UA NOT REPORTED None [facility] [place] CBCon 10-30-2019 Erythrocyte distribution width (RBC) [Ratio] 12.9 % 11.8 - 14.4 % [facility] Phone: Hematocrit (Bld) [Volume fraction] 42.8 % 36.3 - 47.1 % [facility] Phone: Hemoglobin (Bld) [Mass/Vol] 12.9 g/dL 11.9 - 15.1 g/dL [facility] Phone: MCH (RBC) [Entitic mass] 30.8 pg 25. 2 - 33.5 pg [facility] Phone: MCHC (RBC) [Mass/Vol] 30.1 g/dL 28.4 - 34.8 g/dL [facility] Phone: MCV (RBC) [Entitic vol] 102.1 fL 82.6 - 102.9 fL [employer]: [phone] Platelet mean volume (Bld) [Entitic vol] 11.0 fL 8.1 - 13.5 fL [facility] Phone: Platelets (Bld) [#/Vol] 210 10*3/uL [facility] Phone: RBC (Bld) [#/Vol] 4.19 10*6/uL 3.95 - 5.1 1 m/uL [facility] Phone: WBC (Bld) [#/Vol] 7.9 10*3/uL [facility] Phone: WBC (Bld) [#/Vol] 0.0 10*3/uL 0.0 per 10 0 WBC [facility] Phone: Creatinine, Random Urineon 0 10-30-2019 Creatinine, Ur 173.2 mg/dL 28 - 217 mg/dL [facility] Phone: Magnesiumon 10-30-2019 Magnesium [Mass/Vol] 2.2 mg/dL 1.6 - 2 .6 mg/dL [facility] Phone: Metabolic Panelon 10-30-2019 GFR/1.73 sq M predicted among non-blacks MDRD (S/P/Bld) [Vol rate/Area] [facility] Phone: Comment on above: Average GFR for 70 o r more years old: 75 mL/min/1.73sq m Chronic Kidney Disease: <60 mL/min/1.73sq m Kidney failure: <15 mL/min/1.73sq m eGFR calculated using average adult body mass. Additional eGFR calculator available at: http://www.[employer]/multiple_crcl_2012.htm Stage 1: Some kidney damage normal GFR Stage 2: Mild kidney damage GFR 60-89 Stage 3: Moderate kidney damage GFR 30-59 Stage 4: Severe kidney damage GFR 15-29 Stage 5: Severe kidney damage GFR <15 ESRD - chronic treatment by dialysis or transplant PTH, [place] 10-30-2019 Interpretation and review of laboratory results Abnormal [facility] Phone: Pth Intact 121.6 pg/mL High 15 - 65 pg/mL [facility] Phone: Comment on above: SAMPLES FROM PATIENT S ROUTINELY RECEIVING HIGH DOSE BIOTIN THERAPY MAY SHOW FALSELY DEPRESSED RESULTS. ADDITIONAL INFORMATION MAY BE REQUIRED FOR DIAGNOSIS. Protein, urine, randomon Protein (U) [Mass/Vol] 22 mg/dL [employer] Phone: Comment on above: No normal range esta blished. Renal Function Panelon 10-30 Albumin [Mass/Vol] 4.4 g/dL 3.5 - 5.2 g/dL [facility] Phone: Anion gap [Moles/Vol] 13 mmol/L 9 - 17 mmol/L [facility] Phone: Bun/Cre Ratio 17 [facility] Phone: Calcium [Mass/Vol] 9.6 mg/dL 8.6 - 10. 4 mg/dL [facility] Phone: Chloride [Moles/Vol] 105 mmol/L 98 - 10 7 mmol/L [facility] Phone: CO2 [Moles/Vol] 25 mmol/L 20 - 31 mmol/L [facility] Phone: Creatinine [Mass/Vol] 1.72 mg/dL High 0.5 - 0.9 mg/dL [facility] Phone: GFR 34 mL/min Low >60 [employer] Phone: GFR Non- 28 mL/min Low >60 [facility] Phone: Glucose [Mass/Vol] 122 mg/dL High 70 - 99 mg/dL [facility] Phone: Interpretation and review of laboratory results Abnormal [facility] Phone: Phosphate [Mass/Vol] 3.5 mg/dL 2.6 - 4 .5 mg/dL [facility] Phone: Potassium [Moles/Vol] 4.7 mmol/L 3.7 - 5.3 mmol/L [facility] Phone: Sodium [Moles/Vol] 143 mmol/L 135 - 144 mmol/L [facility] Phone: Urea nitrogen [Mass/Vol] 30 mg/dL High 8 - 23 mg/dL [facility] Phone: Uric Acidon 10-30-2019 Urate [Mass/Vol] 5.2 mg/dL 2.4 - 5.7 mg/dL [facility] Phone: Urinalysis with Microscopico n 10-30-2019 Amorphous, UA NOT REPORTED None [facility] Phone: Bacteria, UA 3+ Abnormal None [facility] Phone: Bilirubin Urine Negative NEGATIVE [facility] Phone: Casts UA NOT REPORTED /LPF [facility] Phone: Color, UA YELLOW YELLOW [facility] Phone: Crystals UA NOT REPORTED None /HPF [facility] Phone: Epithelial Cells UA 10 TO 20 [facility] Phone: Glucose, Ur Negative NEGATIVE [facility] Phone: Interpretation and review of laboratory results Abnormal [facility] Phone: Ketones Ql (U) Negative NEGATIVE [facility] Phone: Leukocyte esterase Test strip Ql (U) TRACE Abnormal NEGATIVE [facility] Phone: Mucus, UA NOT REPORTED None [facility] Phone: Nitrite, Urine Negative NEGATIVE [facility] [employer] Work Phone: Other Observations UA NOT REPORTED NOT REQ. [facility] Work Phone: pH, UA 5.0 [facility] [employer] Work Phone: Protein (U) [Mass/Vol] Negative NEGATIVE Me [facility] [employer] Work Phone: RBC (U) [#/Vol] 0 TO 2 [facility] Work Phone: Renal Epithelial, Urine NOT REPORTED 0 /HPF [facility] Work Phone: Specific [place], UA 1.020 [facility] [employer] Work Phone: Trichomonas, UA NOT REPORTED None [facility] [employer] Work Phone: Turbidity UA SLIGHTLY CLOUDY Abnormal CLEAR [facility] [employer] Work Phone: Urinalysis Comments NOT REPORTED [facility] [employer] Work Phone: Urine Hgb Negative NEGATIVE [facility] [employer] Work Phone: Urobilinogen, Urine Normal Normal [facility] [employer] Work Phone: WBC, UA 5 TO 10 [facility] [employer] Phone: Yeast, UA NOT REPORTED None [facility] [employer] Phone: - [facility] [employer] Work Phone: CBCon 08-11-2019 Erythrocyte distribution width (RBC) [Ratio] 13.8 % 11.8 - 14.4 % [place] Hematocrit (Bld) [Volume fraction] 40.5 % 36.3 - 47.1 % [place] Hemoglobin (Bld) [Mass/Vol] 12.5 g/dL 11.9 - 15.1 g/dL [place] MCH (RBC) [Entitic mass] 30.9 pg 25. 2 - 33.5 pg [place] MCHC (RBC) [Mass/Vol] 30.9 g/dL 28.4 - 34.8 g/dL [place] MCV (RBC) [Entitic vol] 100.2 fL 82.6 - 102.9 fL [place] Platelet mean volume (Bld) [Entitic vol] 10.5 fL 8.1 - 13.5 fL [place] Platelets (Bld) [#/Vol] 245 10*3/uL [place] RBC (Bld) [#/Vol] 4.04 10*6/uL 3.95 - 5.1 1 m/uL [place] WBC (Bld) [#/Vol] 7.1 10*3/uL [place] WBC (Bld) [#/Vol] 0.0 10*3/uL 0.0 per 10 0 WBC [place] Creatinine Clearanceon 08-11 Creatinine [Mass/Vol] 54.7 mg/dL 28 - 2 17 mg/dL [place] Creatinine [Mass/Vol] 1.8 mg/dL High 0.5 - 0.9 mg/dL [place] Creatinine Clearance 25.8 [place] Interpretation and review of laboratory results Abnormal [place] Length Of Collection 24 h [place] Patient Height 155 cm [place] Volume 1175 mL [place] Creatinine, Random Urineon 1 10-11-2018 Creatinine, Ur 18.5 mg/dL Low 28 - 217 mg/dL [place] Interpretation and review of laboratory results Abnormal [place] Magnesiumon 08-11-2019 Magnesium [Mass/Vol] 1.9 mg/dL 1.6 - 2 .6 mg/dL [place] Metabolic Panelon 08-11-2019 GFR/1.73 sq M predicted among non-blacks MDRD (S/P/Bld) [Vol rate/Area] [place] Comment on above: Average GFR for 70 o r more years old: 75 mL/min/1.73sq m Chronic Kidney Disease: <60 mL/min/1.73sq m Kidney failure: <15 mL/min/1.73sq m eGFR calculated using average adult body mass. Additional eGFR calculator available at: http://[email or web address]_crcl_2012.htm Stage 1: Some kidney damage normal GFR Stage 2: Mild kidney damage GFR 60-89 Stage 3: Moderate kidney damage GFR 30-59 Stage 4: Severe kidney damage GFR 15-29 Stage 5: Severe kidney damage GFR <15 ESRD - chronic treatment by dialysis or transplant PTH, Intacton 08-11-2019 Interpretation and review of laboratory results Abnormal [place] Pth Intact 99.15 pg/mL High 15 - 65 pg/mL [place] Comment on above: SAMPLES FROM PATIENT S ROUTINELY RECEIVING HIGH DOSE BIOTIN THERAPY MAY SHOW FALSELY DEPRESSED RESULTS. ADDITIONAL INFORMATION MAY BE REQUIRED FOR DIAGNOSIS. Protein, urine, randomon Protein (U) [Mass/Vol] mg/dL mg/dL [place] Comment on above: No normal range esta blished. Protein, urine, timedon 07-28 Hours Collected 24 h [place] Protein (U) [Mass/Vol] 5 mg/dL [place] Volume 1175 mL [place] Comment on above: CORRECTED ON 08/11 A T 1745: PREVIOUSLY REPORTED 1175 ML Renal Function Panelon 08-11 Albumin [Mass/Vol] 4.3 g/dL 3.5 - 5.2 g/dL [place] Anion gap [Moles/Vol] 15 mmol/L 9 - 17 mmol/L [place] Bun/Cre Ratio 16 [place] Calcium [Mass/Vol] 9.2 mg/dL 8.6 - 10. 4 mg/dL [place] Chloride [Moles/Vol] 100 mmol/L 98 - 10 7 mmol/L [place] CO2 [Moles/Vol] 22 mmol/L 20 - 31 mmol/L [place] Creatinine [Mass/Vol] 1.8 mg/dL High 0.5 - 0.9 mg/dL [place] GFR 33 mL/min Low >60 [place] GFR Non- 27 mL/min Low >60 [place] Glucose [Mass/Vol] 110 mg/dL High 70 - 99 mg/dL [place] Interpretation and review of laboratory results Abnormal [place] Phosphate [Mass/Vol] 2.8 mg/dL 2.6 - 4 .5 mg/dL [place] Potassium [Moles/Vol] 4.1 mmol/L 3.7 - 5.3 mmol/L [place] Sodium [Moles/Vol] 137 mmol/L 135 - 144 mmol/L [place] Urea nitrogen [Mass/Vol] 29 mg/dL High 8 - 23 mg/dL [place] TSH without Reflexon 019 TSH Qn 3.22 m[IU]/L [place] US RENAL COMPLETEon 08-11-20 19 1. [...] CT for confirmation of the above findings. [place] EXAMINATION: RETROPERITONEAL ULTRASOUND OF THE KIDNEYS AND URINARY BLADDER 08/11/2019 COMPARISON: None HISTORY: ORDERING SYSTEM PROVIDED HISTORY: Chronic kidney disease, stage IV (severe) ([facility]) FINDINGS: Kidneys: Suboptimal evaluation due to [...] the bladder. No significant post void residual. [place], [employer] Incoming Radiant Results From [employer] - 08/11/2019 12:53 PM EST EXAMINATION: RETROPERITONEAL ULTRASOUND OF THE KIDNEYS AND URINARY BLADDER 08/11/2019 COMPARISON: None HISTORY: ORDERING SYSTEM PROVIDED HISTORY: Chronic kidney disease, stage IV (severe) ([facility]) FINDINGS: Kidneys: Suboptimal evaluation due to [...] CT for confirmation of the above findings. [place] Uric Acidon 08-11-2019 Urate [Mass/Vol] 5.4 mg/dL 2.4 - 5.7 mg/dL [place] Urinalysison 08-11-2019 Protein (U) [Mass/Vol] NOT REPORTED mg/X h [place] Urinalysis with Microscopico n 08-11-2019 Amorphous, UA NOT REPORTED None [place] Bacteria, UA TRACE Abnormal None [place] Bilirubin Urine Negative NEGATIVE [place] Casts UA NOT REPORTED /LPF [place] Color, UA YELLOW YELLOW [place] Crystals UA NOT REPORTED None /HPF [place] Epithelial Cells UA 0 TO 2 [place] Glucose, Ur Negative NEGATIVE [place] Interpretation and review of laboratory results Abnormal [place] Ketones Ql (U) Negative NEGATIVE [place] Leukocyte esterase Test strip Ql (U) Negative NEGATIVE [place] Mucus, UA NOT REPORTED None [place] Nitrite, Urine Negative NEGATIVE [place] Other Observations UA NOT REPORTED NOT REQ. M [facility] [place], [place] pH, UA 5.5 [place] Protein (U) [Mass/Vol] Negative NEGATIVE [place] RBC (U) [#/Vol] 0 TO 2 [place] Renal Epithelial, Urine NOT REPORTED 0 /HPF [place] Specific [place], UA <1.005 [place] Trichomonas, UA NOT REPORTED None [place] Turbidity UA CLEAR CLEAR [place] Urinalysis Comments NOT REPORTED [place] Urine Hgb Negative NEGATIVE [place] Urobilinogen, Urine Normal Normal [place] WBC, UA 0 TO 2 [place] Yeast, UA NOT REPORTED None [place] Vitamin B12 & Folateon 08-11 Cobalamin (Vitamin B12) [Mass/Vol] 391 pg/mL 232 - 1245 pg/mL [place] Folate 7.7 ng/mL >4.8 [place] Vital Signs Date Time Vital Sign Value Performing Clinician Facility 01-19-2024 09:43-0400 Body height 152.4 cm [facility] 01-19-2024 09:43-0400 Body mass index (BMI) [Ratio] 25.4 kg/m2 [facility] 01-19-2024 09:43-0400 Body temperature 97.9 [degF] [facility] 01-19-2024 09:43-0400 Body weight 58.96 kg [facility] 01-19-2024 09:43-0400 Diastolic blood pressure 75 mm[Hg] [facility] 01-19-2024 09:43-0400 Heart rate 74 /min [facility] 01-19-2024 09:43-0400 Systolic blood pressure 148 mm[Hg] [facility] 12-06-2023 14:21-0400 Diastolic blood pressure 88 mm[Hg] Mark Cesar PA-C Work Phone: [facility] 12-06-2023 14:21-0400 Heart rate 60 /min Mark O'Wiley PA-C Work Phone: [facility] 12-06-2023 14:21-0400 Systolic blood pressure 155 mm[Hg] Mark O'Wiley PA-C Work Phone: [facility] 09-09-2023 13:00-0500 Diastolic blood pressure 88 mm[Hg] Brina Cordero Other [facility] [employer] Other 09-09-2023 13:00-0500 Respiratory rate 12 /min Brina Cordero Other [facility] [employer] Other 09-09-2023 13:00-0500 Systolic blood pressure 132 mm[Hg] Brina Cordero Other [facility] [employer] Other 08-31-2023 22:45-0500 Diastolic blood pressure 94 mm[Hg] MD Destiny Irwin Work Phone: [facility] 08-31-2023 22:45-0500 Heart rate 89 /min MD Destiny Irwin Work Phone: [facility] 08-31-2023 22:45-0500 Respiratory rate 18 /min MD Destiny Irwin Work Phone: [facility] 08-31-2023 22:45-0500 SaO2% (BldA) [Mass fraction] 97 % MD Destiny Irwin Work Phone: [facility] 08-31-2023 22:45-0500 Systolic blood pressure 165 mm[Hg] MD Destiny Irwin Work Phone: [facility] 08-31-2023 18:28-0500 Body height 154.94 cm MD Destiny Irwin Work Phone: [facility] 08-31-2023 18:28-0500 Body weight 59.87 kg MD Destiny Irwin Work Phone: [facility] 08-31-2023 18:27-0500 Body temperature 98.2 [degF] MD Destiny Irwin Work Phone: [facility] 06-11-2023 13:00-0400 Diastolic blood pressure 72 mm[Hg] Brina Cordero Other [employer] Other 06-11-2023 13:00-0400 Respiratory rate 12 /min Brina Cordero Other [facility] [employer] Other 06-11-2023 13:00-0400 Systolic blood pressure 178 mm[Hg] Brina Cordero Other [facility] [employer] Other 09-12-2020 11:04-0500 BP Diastolic 63 mm[Hg] Glenn Mart[facility]nez [facility] [place] , [place] Comment on above: 2nd reading 09-12-2020 11:04-0500 BP Systolic 139 mm[Hg] Glenn Mart[facility]nez [facility] [place] , [place] Comment on above: 2nd reading 09-12-2020 11:04-0500 Pulse (Heart Rate) 65 /min Glenn [facility] [place] 09-12-2020 11:02-0500 Body Temperature 96.1 [degF] [facility] [place] 09-12-2020 11:02-0500 Respiratory Rate 20 /min [facility] [place] 08-15-2020 10:48-0500 Body Temperature 96.69 [degF] Glenn [facility] [place] 08-15-2020 10:48-0500 BP Diastolic 90 mm[Hg] Glenn [facility] [place] 08-15-2020 10:48-0500 BP Systolic 147 mm[Hg] Glenn Mart[facility] [place] 08-15-2020 10:48-0500 Pulse (Heart Rate) 69 /min [facility] [place] 08-15-2020 10:48-0500 Respiratory Rate 22 /min Glenn [facility] [place] 07-18-2020 10:55-0400 Body Temperature 97.81 [degF] [facility] [place] 07-18-2020 10:55-0400 BP Diastolic 71 mm[Hg] [facility] [place] [facility] [place] 07-18-2020 10:55-0400 BP Systolic 133 mm[Hg] [facility] [place] 07-18-2020 10:55-0400 Pulse (Heart Rate) 79 /min [facility] [place] 07-18-2020 10:55-0400 Respiratory Rate 16 /min [facility] 06-27-2020 11:04-0400 BP Diastolic 71 mm[Hg] [facility] [place] 06-27-2020 11:04-0400 BP Systolic 123 mm[Hg] [facility] [place] 06-27-2020 11:04-0400 Pulse (Heart Rate) 84 /min [facility] [place] 06-27-2020 11:04-0400 Respiratory Rate 22 /min [facility] [place] 05-30-2020 13:10-0400 Body Temperature 97.59 [degF] [facility] 05-30-2020 13:10-0400 BP Diastolic 86 mm[Hg] [facility] [place] 05-30-2020 13:10-0400 BP Systolic 136 mm[Hg] [facility] [place] 05-30-2020 13:10-0400 Pulse (Heart Rate) 108 /min [facility] [place] 05-30-2020 13:10-0400 Respiratory Rate 20 /min [facility] [place] 05-15-2020 14:09-0400 Pulse Oximetry 97 % [facility] [place] 05-15-2020 08:52-0400 Body Temperature 98.2 [degF] [facility] 05-15-2020 08:52-0400 BP Diastolic 58 mm[Hg] [facility] [place] 05-15-2020 08:52-0400 BP Systolic 118 mm[Hg] Chele Lagos [facility] , [place] 05-15-2020 08:52-0400 Pulse (Heart Rate) 68 /min Chele Lagos [facility], [place] 05-15-2020 08:52-0400 Respiratory Rate 16 /min Chele Simon [facility], [place] 05-10-2020 10:40-0400 BMI (Body Mass Index) 27.21 kg/m2 Chele Lagos [facility], [place] 05-10-2020 10:40-0400 Body weight 69.67 kg Chele Lagos [facility] , [place] 05-10-2020 10:40-0400 Height 160 cm Chele Lagos [facility] , [place] 04-06-2020 07:53-0400 Body Temperature 97 [degF] Kian Simon [facility] [place], [place] 04-06-2020 07:53-0400 BP Diastolic 80 mm[Hg] [facility] [place] 04-06-2020 07:53-0400 BP Systolic 120 mm[Hg] [facility] [place] 04-06-2020 07:53-0400 Pulse (Heart Rate) 66 /min Kian Simon [facility], [place] 04-06-2020 07:53-0400 Pulse Oximetry 96 % Kian Ernst [facility], [place] 04-06-2020 07:53-0400 Respiratory Rate 16 /min [facility] [place] 04-06-2020 04:30-0400 BMI (Body Mass Index) 30.86 kg/m2 [facility] [place] 04-06-2020 04:30-0400 Body weight 71.67 kg Kian Ernst [facility], [place] 04-03-2020 07:32-0400 Height 152.4 cm Kian Ernst [facility], [place] 03-23-2020 17:22-0400 BP Diastolic 82 mm[Hg] [facility] , [place] 03-23-2020 17:22-0400 BP Systolic 137 mm[Hg] [facility] , [place] 03-23-2020 17:22-0400 Pulse Oximetry 99 % Forestbrett [place], [place] 03-23-2020 15:09-0400 Body Temperature 98.4 [degF] Forest Baer [facility], [place] 03-23-2020 15:09-0400 Pulse (Heart Rate) 76 /min [place] 03-23-2020 15:07-0400 BMI (Body Mass Index) 31.05 kg/m2 [facility] [place] 03-23-2020 15:07-0400 Body weight 72.12 kg [place] 03-23-2020 15:07-0400 Height 152.4 cm [place], [place] 03-23-2020 15:07-0400 Respiratory Rate 18 /min [place] 02-09-2020 15:52-0400 BP Diastolic 50 mm[Hg] [place] 02-09-2020 15:52-0400 BP Systolic 136 mm[Hg] [place] 02-09-2020 15:52-0400 Pulse (Heart Rate) 54 /min [place], [place] 02-09-2020 15:52-0400 Pulse Oximetry 98 % [place] 02-09-2020 15:52-0400 Respiratory Rate 18 /min [place], [place] 02-09-2020 11:10-0400 Body Temperature 98.6 [degF] [place] 02-09-2020 11:10-0400 Body weight 68.04 kg [place] 08-11-2019 15:08-0500 Body weight 67 kg [place] Encounters Encounter Date Encounter Type Care Provider Facility Start: 06-15-2024 ambulatory Luis Nolasco [facility] Start: 05-03-2024 End: 05-03-2024 ambulatory BRINA CORDERO Not Available Start: 02-28-2024 End: 02-28-2024 ambulatory KODY A FACUNDO Not Available Start: 02-17-2024 End: 02-17-2024 ambulatory KODY A FACUNDO Not Available Start: 02-17-2024 Telephone encounter Moni bell Comment on above: Results Start: 01-31-2024 Telephone encounter Mark O'Do nohue PA-C Work Phone: Urology Comment on above: Appointment Start: 01-28-2024 End: 01-28-2024 ambulatory KODY A FACUNDO Not Available Start: 01-19-2024 End: 01-19-2024 ambulatory [facility] Work Phone: Start: 01-19-2024 End: 01-19-2024 Patient encounter procedure [facility] Work Phone: Start: 01-10-2024 End: 01-10-2024 ambulatory KODY A FACUNDO Not Available Start: 01-10-2024 Non-patient / Non-visit [facility] Work Phone: Start: 01-09-2024 Non-patient / Non-visit [facility] Work Phone: Start: 01-04-2024 Telephone encounter Mark Jacob nohue PA-C Work Phone: Urology Start: 01-04-2024 Non-patient / Non-visit [facility] Work Phone: Start: 12-29-2023 End: 12-29-2023 ambulatory KODY A FACUNDO Not Available Start: 12-21-2023 Non-patient / Non-visit [facility] Work Phone: Start: 12-08-2023 Telephone encounter Mark NolanDo nohue PA-C Work Phone: Urology Comment on above: Results Start: 12-06-2023 End: 12-06-2023 Patient encounter procedure Mark Cesar PA-C Work Phone: Urology Comment on above: Nephrolithiasis (Mckenna kapil Dx); Hydronephrosis, unspecified hydronephrosis type Start: 12-06-2023 End: 12-07-2023 ambulatory Mark AlxeandriaMoiraWiley PA-C Work Phone: Urology Start: 12-06-2023 End: 12-06-2023 Subsequent hospital visit by physician [facility] Comment on above: Nephrolithiasis [N20 .0] Start: 12-06-2023 End: 12-06-2023 Subsequent hospital visit by physician [facility] 5 Work Phone: Radiology Comment on above: Nephrolithiasis [N20 .0] Start: 12-01-2023 End: 12-01-2023 ambulatory KODY LOREDO Not Available Start: 11-24-2023 Non-patient / Non-visit [facility] Work Phone: Start: 11-22-2023 Non-patient / Non-visit [facility] Work Phone: Start: 11-12-2023 Non-patient / Non-visit [facility] Work Phone: Start: 11-11-2023 Non-patient / Non-visit [facility] Work Phone: Start: 10-27-2023 End: 10-28-2023 ambulatory RICCO GARLAND Facility:[facility] Start: 10-17-2023 End: 10-21-2023 ambulatory RICCO GARLAND Facility:[facility] Start: 10-15-2023 End: 10-15-2023 ambulatory Brina Cordero Other [employer] Other Start: 10-15-2023 Telephone encounter Brina Cordero [facility] Start: 10-07-2023 End: 10-07-2023 ambulatory Brina Cordero Other [employer] Other Start: 10-07-2023 Telephone encounter Brina Cordero [facility] Start: 10-05-2023 End: 10-05-2023 ambulatory Brina Cordero Other [employer] Other Start: 10-05-2023 Telephone encounter Brnia Cordero [facility] Start: 09-23-2023 Encounter for other preprocedural examination BRINA [facility] Start: 09-23-2023 End: 09-23-2023 ambulatory BRINA Latanya ROXIE Facility:[facility] Start: 09-23-2023 End: 09-24-2023 ambulatory BRINA Pelaez ROXIE Facility:[facility] Start: 09-23-2023 End: 09-24-2023 ambulatory BRINA Pelaez CORDERO Facility:[facility] Start: 09-23-2023 Preprocedural examin ation done Xr A21 [facility] Work Phone: Start: 09-17-2023 ambulatory BRINA CORDERO Facility :[facility] Start: 09-09-2023 End: 09-09-2023 ambulatory Brina Cordero Other [employer] Other Start: 09-09-2023 Transitional care janina singh sr 14 day discharge Brina Roxie [facility] Start: 09-08-2023 Orders Only Ricco Garland MD Work Phone: Urology Comment on above: Hydronephrosis with urinary obstruction due to renal calculus (Primary Dx) Start: 09-07-2023 End: 09-08-2023 ambulatory RICCO GARLAND Facility:[facility] Start: 09-06-2023 ambulatory Harsh Hardy ty:OSWALDO Galvan Start: 09-03-2023 End: 09-04-2023 ambulatory Justino Martinez [employer] Other Start: 09-03-2023 Telephone encounter Brina Roxie [facility] Start: 09-01-2023 End: 09-03-2023 Evaluation and management of inpatient Brina Cordero Facility:[facility] Start: 08-31-2023 Evaluation and manag ement of inpatient MD Destiny Irwin Work Phone: [facility] Work Phone: Start: 08-31-2023 End: 08-31-2023 ambulatory Brina Cordero Other [employer] Other Start: 08-31-2023 Telephone encounter Brina Roxie [facility] Start: 08-30-2023 End: 08-30-2023 ambulatory Brina Cordero Other [employer] Other Start: 08-30-2023 Telephone encounter Brina Roxie [facility] Start: 08-26-2023 End: 08-27-2023 ambulatory Harsh CLAYTON [employer] Other Start: 08-26-2023 Telephone encounter Brina Cordero [facility] Start: 08-24-2023 End: 08-24-2023 ambulatory Brina Roxie Other [employer] Other Start: 08-24-2023 Telephone encounter Brina Cordero [facility] Start: 08-23-2023 End: 08-23-2023 ambulatory Brina Roxie Other [employer] Other Start: 08-23-2023 Telephone encounter Brina Cordero [facility] Start: 08-03-2023 End: 08-03-2023 ambulatory Brina Roxie Other [employer] Other Start: 08-03-2023 Telephone encounter Birna Cordero [facility] Start: 08-02-2023 End: 08-02-2023 ambulatory Brina Roxie Other [employer] Other Start: 08-02-2023 Telephone encounter Brina Cordero [facility] Start: 07-21-2023 End: 07-21-2023 ambulatory Brina Roxie Other [employer] Other Start: 07-21-2023 Telephone encounter Brina Cordero [facility] Start: 07-19-2023 End: 07-19-2023 ambulatory Brina Cordero Other [employer] Other Start: 07-19-2023 Telephone encounter Brina Cordero [facility] Start: 07-05-2023 End: 07-05-2023 ambulatory Brina Cordero Other [employer] Other Start: 07-05-2023 Telephone encounter Brina Cordero [facility] Start: 06-11-2023 End: 06-11-2023 ambulatory Brina Cordero Other [employer] Other Start: 06-11-2023 Patient encounter procedure Brina Roxie [facility] Start: 05-26-2023 ([place]) Long-Term Brina Cordero [facility] Start: 05-26-2023 End: 05-26-2023 ambulatory Brina Roxie Other [employer] Other Start: 10-14-2021 End: 10-15-2021 ambulatory JUSTINO Paolo YAZMINSE [facility] Start: 10-03-2021 End: 10-04-2021 ambulatory JUSTINO Paolo YAZMINSE [facility] Start: 06-24-2021 End: 06-25-2021 ambulatory JUSTINO Paolo YAZMIN [facility] Start: 06-24-2021 End: 06-24-2021 Subsequent hospital visit by physician Justino Dhaliwal DO Work Phone: [facility] Start: 04-12-2021 End: 04-12-[address] ALAN HERNANDEZ Facility: Start: 02-20-2021 End: 02-21-2021 ambulatory JUSTINO Paolo DHALIWAL [facility] Start: 02-20-2021 End: 02-20-2021 Subsequent hospital visit by physician Justino Dhaliwal DO Work Phone: [facility] Start: 12-05-2020 End: 12-06-2020 ambulatory [facility]ILAN CHEW [facility] Start: 12-05-2020 End: 12-05-2020 Subsequent hospital visit by physician Justino Dhaliwal [facility] Start: 11-07-2020 End: 11-08-2020 ambulatory [facility]AL [facility] Start: 11-07-2020 End: 11-07-2020 Subsequent hospital visit by physician Justino Dhaliwal [facility] Start: 11-06-2020 End: 11-07-2020 ambulatory [facility] Start: 11-06-2020 End: 11-06-2020 Subsequent hospital visit by physician Justino Dhaliwal [facility] Start: 10-30-2020 End: 10-31-2020 ambulatory JUSTINO [facility]ALIWAL [facility] Start: 10-30-2020 End: 10-30-2020 Subsequent hospital visit by physician Justino Dhaliwal [facility] Start: 10-23-2020 End: 10-24-2020 ambulatory MANUEL IBARRA [facility] Start: 10-23-2020 End: 10-23-2020 Subsequent hospital visit by physician Justino Dhaliwal [facility] Start: 09-26-2020 End: 09-26-2020 Subsequent hospital visit by physician Justino Dhaliwal [facility] Start: 09-25-2020 End: 09-25-2020 Subsequent hospital visit by physician Justino Dhaliwal [facility] Start: 09-18-2020 End: 09-18-2020 Subsequent hospital visit by physician Justino Dhaliwal [facility] Start: 09-12-2020 End: 09-12-2020 Subsequent hospital visit by physician Glenn Martínez Work Phone: [facility] Comment on above: Decubitus ulcer of h eel, left, unstageable (HCC) (Primary Dx) Start: 09-11-2020 End: 09-11-2020 Subsequent hospital visit by physician Justino Dhaliwal [facility] Start: 09-06-2020 End: 09-06-2020 Subsequent hospital visit by physician Justino Dhaliwal [facility] Start: 09-05-2020 End: 09-05-2020 Subsequent hospital visit by physician Justino Dhaliwal [facility] Start: 08-28-2020 End: 08-28-2020 [...] visit by physician Glenn Martínez Work Phone: [facility] Comment on above: Decubitus ulcer of h eel, left, unstageable (HCC) (Primary Dx) Start: 08-09-2020 End: 08-09-2020 Subsequent hospital visit by physician Justino RED [facility] Start: 07-18-2020 End: 07-18-2020 Subsequent hospital visit by physician Glenn Martínez Work Phone: [facility] Comment on above: [...] visit by physician Glenn Martínez Work Phone: [facility] Comment on above: [...] Subsequent hospital visit by physician Justino Dhaliwal [facility] Start: 06-18-2020 End: 06-18-2020 Subsequent hospital visit by physician Justino Dhaliwal [facility] Start: 06-13-2020 End: 06-13-2020 Subsequent hospital visit by physician Asif Ventura Drawing Room [facility] Comment on above: Arrived Decubitus ulcer of h eel, left, unstageable (HCC) (Primary Dx) Start: 06-12-2020 End: 06-12-2020 Subsequent hospital visit by physician Justino Dhaliwal [facility] Start: 06-06-2020 End: 06-06-2020 Subsequent hospital visit by physician Justino Dhaliwal [facility] Start: 05-30-2020 End: 05-30-2020 Subsequent hospital visit by physician Glenn Martínez Work Phone: [facility] Start: 05-30-2020 End: 05-30-2020 Subsequent hospital visit by physician Justino Dhaliwal [facility] Start: 05-23-2020 End: 05-23-2020 Subsequent hospital visit by physician Justino Dhaliwal [facility] Start: 05-23-2020 End: 05-23-2020 Subsequent hospital visit by physician Justino Dhaliwal [facility] Start: 05-17-2020 End: 05-17-2020 Subsequent hospital visit by physician Justino Dhaliwal [facility] Start: 05-10-2020 End: 05-15-2020 Evaluation and management of inpatient CHELE LAGOS [facility] Start: 05-10-2020 End: 05-15-2020 Evaluation and management of inpatient Chele Lagos Work Phone: [facility] Orthopedics 7K Comment on above: 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); Periprosthetic intertrochanteric fracture of femur, initial encounter Start: 05-09-2020 End: 05-09-2020 Subsequent hospital visit by physician Justino Dhaliwal [facility] Start: 05-08-2020 End: 05-08-2020 Subsequent hospital visit by physician Justino Dhaliwal [facility] Start: 05-03-2020 End: 05-03-2020 Subsequent hospital visit by physician Justino Dhaliwal [facility] Start: 04-10-2020 End: 04-10-2020 Subsequent hospital visit by physician Justino Dhaliwal [facility] Start: 04-02-2020 End: 04-06-2020 Evaluation and management of inpatient Kian Ernst [facility] Comment on above: General weakness (Pr imary Dx); Hypokalemia; Malaise; Cellulitis of right upper extremity Start: 03-25-2020 End: 03-25-2020 Subsequent [facility] Start: 03-23-2020 End: 03-23-2020 Emergency department patient visit Forest Baer Work Phone: [facility] Comment on above: Pain of left hip bridger nt (Primary Dx) Start: 03-12-2020 End: 03-12-2020 Subsequent hospital visit by physician [facility]hal[facility]wal [facility] Start: 02-27-2020 End: 02-27-2020 Subsequent hospital visit by physician [facility]hal[facility]wal [facility] Start: 02-20-2020 End: 02-20-2020 Subsequent hospital visit by physician [facility]hal[facility]wal [facility] Start: 02-09-2020 End: 02-15-2020 Evaluation and management of inpatient Carlos Carlin Facility:[facility] Start: 02-09-2020 End: 02-09-2020 Emergency department patient visit Mariusz Rodriguez Work Phone: [facility] ED Comment on above: Closed displaced int ertrochanteric fracture of left femur, initial encounter (HCC) (Primary Dx) Start: 02-02-2020 End: 02-02-2020 Subsequent hospital visit by physician [facility] Drawing Room [facility] Comment on above: Arrived Start: 10-30-2019 End: 10-30-2019 Subsequent hospital visit by physician Justino Dhaliwal [facility] Start: 08-11-2019 End: 08-13-2019 Subsequent hospital visit by physician [facility] Drawing Room [facility] Comment on above: Arrived Chronic kidney disea se, stage IV (severe) ([facility]) Procedures Date Procedure Procedure Detail Performing Clinician Start: 06-15-2024 Computerized ophthal alan imaging retina Luis Nolasco Start: 01-04-2024 Bacteria identified in Urine by Culture Start: 12-06-2023 Radiologic exam abdo men 3+ views Ricco Garland MD Work Phone: Start: 12-06-2023 Us retroperitoneal r eal time w/image complete Ricco Garland MD Work Phone: Start: 09-23-2023 Antibody screen BRINA CORDERO Comment on above: Order Comment: Speci men Type: BLOOD SPECIMENOrdering Facility: [facility] Address: [address] [place] [address] Performed By: #### T [id number] ####CC [facility] BLOOD BANKCLIA [id number] ASHANTI PARKESBURGMICHAEL [id number], [place] [address] [place] Start: 08-31-2023 Urine culture MD Destiny Irwin Work Phone: Start: 12-05-2020 Blood count complete auto&auto difrntl wbc Manuel Ibarra Work Phone: Start: 12-05-2020 C-reactive protein Sanalucie Ibarra Work Phone: Start: 12-05-2020 Assay of blood/uric acid Benahili U Iboaya Work Phone: Start: 12-05-2020 Assay of magnesium [place] U Iboaya Work Phone: Start: 12-05-2020 Assay of parathormone B enahili U Iboaya Work Phone: Start: 12-05-2020 Renal function panel Be nahili U Iboaya Work Phone: Start: 11-07-2020 Blood count complete auto&auto difrntl wbc Manuel Ibarra Work Phone: Start: 11-07-2020 C-reactive protein Sanalucie Ibarra Work Phone: Start: 11-07-2020 Sedimentation rate r bc automated Manuel Cunhaamy Work Phone: Start: 10-30-2020 Lipid panel Justino F Dany sse Work Phone: Start: 10-23-2020 Blood count complete automated Manuel Cunhaamy Work Phone: Start: 10-23-2020 C-reactive protein Sanalucie Ibarra Work Phone: Start: 10-23-2020 Comprehensive metabo lic panel Manuel Ratnasamy Work Phone: Start: 10-23-2020 Sedimentation rate r bc automated Manuel Ratnasamy Work Phone: Start: 09-26-2020 Assay of magnesium [...] Phone: Start: 09-11-2020 C-reactive protein Sana jeffreychino Myersnasamy Work Phone: Start: 09-11-2020 Comprehensive metabo lic panel Manuel Ratnasamy Work Phone: Start: 09-11-2020 Sedimentation rate r bc automated Manuel Ratnasamy Work Phone: Start: 09-06-2020 C-reactive protein Sana jeffrey Ratnasamy Work Phone: Start: 09-06-2020 Comprehensive metabo lic panel Manuel Ratnasamy Work Phone: Start: 09-05-2020 Blood count complete automated Manuel Ratnasamy Work Phone: Start: 09-05-2020 Comprehensive metabo lic panel Manuel Cunhaamy Work Phone: Start: 09-05-2020 Sedimentation rate r bc automated Manuelraymond Myersnasamy Work Phone: Start: 08-28-2020 Blood count complete automated Manuelraymond Myersnasamy Work Phone: Start: 08-28-2020 C-reactive protein Sanalucie Cunhaamy Work Phone: Start: 08-28-2020 Comprehensive metabo lic panel Manuelraymond Myersnasamy Work Phone: Start: 08-28-2020 Sedimentation rate r bc automated Manuelraymond Cunhaamy Work Phone: Start: 08-27-2020 Urinalysis microscop ic only Justino Dhaliwal Work Phone: Start: 08-27-2020 Urnls dip stick/tabl et rgnt auto w/o microscopy Justino Dhaliwal Work Phone: Start: 08-21-2020 Blood count complete automated Manuel Cunhaamy Work Phone: Start: 08-21-2020 C-reactive protein Sana Cunhaamy Work Phone: Start: 08-21-2020 Comprehensive metabo lic panel Manuel Cunhaamy Work Phone: Start: 08-21-2020 Sedimentation rate r bc automated Manuel Cunhaamy Work Phone: Start: 08-16-2020 Blood count complete automated Manuelraymond Myersnasamy Work Phone: Start: 08-16-2020 C-reactive protein Sanalucie Cunhaamy Work Phone: Start: 08-16-2020 Comprehensive metabo lic panel Manuelraymond Myersnasamy Work Phone: Start: 08-16-2020 Sedimentation rate r bc automated Manuelraymond Myersnasamy Work Phone: Start: 08-09-2020 Assay of blood/uric [...] Work Phone: Start: 07-18-2020 Assay of magnesium [place] U Iboaya Work Phone: Start: 07-18-2020 [...] Work Phone: Start: 05-30-2020 C-reactive protein Sana Ibarra Work Phone: Start: 05-30-2020 Sedimentation rate r bc automated Manuel Ibarra Work Phone: Start: 05-30-2020 Blood count complete [...] CHELE LAGOS Start: 05-15-2020 DISCHARGE PATIENT NIKHIL LAGOS Start: 05-15-2020 Blood count hemoglobin Constantin Escobedo Work Phone: Start: 05-15-2020 INITIATE OXYGEN THER APY PROTOCOL CHELE LAGOS Start: 05-14-2020 HEMOGLOBIN AND HEMAT OCRIT, BLOOD CHELE LAGOS Start: 05-14-2020 Blood count hemoglobin Katarina Pike Work Phone: Start: 05-14-2020 TRANSFUSE RED BLOOD CELLS CHELE LAGOS Start: 05-14-2020 Antibody screen Chele Lagos Comment on above: [place] [address] Start: 05-14-2020 PREPARE RBC (CROSSMATCH) CHELE LAGOS [...] LAGOS Start: 05-14-2020 Antibody bordetella SARA CRISTOBAL ANURAG Start: 05-14-2020 Basic metabolic pane l calcium total CHELE LAGOS Start: 05-14-2020 Blood count complete auto&auto difrntl wbc CHELE LAGOS Start: 05-14-2020 Blood smear peripher al interp phys w/writ report CHELE LAGOS Start: 05-14-2020 Creatinine blood CHELE LAGOS Start: 05-14-2020 Blood typing serologic abo Gheith Eliseo Work Phone: Start: 05-14-2020 Radex foot complete minimum 3 views Katarina Carrollwood Work Phone: Start: 05-14-2020 Anion gap [Moles/Vol] [...] CHELE LAGOS Start: 05-13-2020 Antibody bordetella SARA CRISTOBAL ANURAG Start: 05-13-2020 Basic metabolic pane l calcium [...] 05-13-2020 INITIATE OXYGEN THER APY PROTOCOL CHELE ARANGOZINA Start: 05-13-2020 IP CONSULT TO SOCIAL WORK CHELE ANURAG Start: 05-12-2020 BLADDER SCAN CHELE ARANGO ZINA Start: 05-12-2020 BLADDER SCAN Gheith You sif Work Phone: Start: 05-12-2020 INITIATE OXYGEN THER APY PROTOCOL CHELE ANURAG Start: 05-12-2020 WOUND OSTOMY EVAL NIKHIL LAGOS Start: 05-12-2020 Antibody bordetella SARA LAGOS Start: 05-12-2020 Basic metabolic pane l calcium total CHELE LAGOS Start: 05-12-2020 Blood count complete auto&auto difrntl wbc CHELE LAGOS Start: 05-12-2020 Creatinine blood CHELE ARANGOZINA Start: 05-12-2020 WOUND OSTOMY EVAL Nikhil n Martín Lagos Work Phone: Start: 05-12-2020 Anion gap [Moles/Vol] C jonnathan Grayson [employer] Work Phone: Start: 05-12-2020 Basic metabolic pane l calcium total Sylvia A Hebhaktimedeanna Work Phone: Start: 05-12-2020 Blood count complete auto&auto difrntl wbc Sylvia A ALTHIAbhaktimedeanna Work Phone: Start: 05-12-2020 GLOMERULAR FILTRATIO N RATE, ESTIMATED Sylvia Grayson [employer] Work Phone: Start: 05-12-2020 STRAIGHT CATH CHELE SINGH Start: 05-12-2020 BLADDER SCAN CHELE IZAGUIRRE Start: 05-12-2020 BLADDER SCAN Mirian Gomez Start: [...] count complete auto&auto difrntl wbc Sylvia Grayson [employer] Work Phone: Start: 05-11-2020 Anion gap [Moles/Vol] C ourtgail Grayson [employer] Work Phone: Start: 05-11-2020 Basic metabolic pane l calcium total Sylvia Grayson [employer] Work Phone: Start: 05-11-2020 GLOMERULAR FILTRATIO N RATE, ESTIMATED Sylvia Grayson [employer] Work Phone: Start: 05-10-2020 DIET GENERAL CHELE IZAGUIRRE Start: 05-10-2020 IP CONSULT TO HOSPITALIST CHELE LAGOS Start: 05-10-2020 OT EVAL AND TREAT NIKHIL LAGOS Start: 05-10-2020 PLACE INTERMITTENT PNEUMATIC COMPRESSION DEVICE CHELE LAGOS Start: 05-10-2020 PT EVAL AND TREAT NIKHIL LAGOS Start: 05-10-2020 WEIGHT BEARING TOLERATED CHELE ARANGOZINA Start: 05-10-2020 FULL CODE CHELE IZAGUIRRE Start: 05-10-[address]FFECT[address]A [address] MALICK ANURAG Start: 05-10-2020 INITIATE OXYGEN THER APY PROTOCOL CHELE LAGOS Start: 05-10-2020 INTAKE AND OUTPUT NIKHIL Sarita ANURAG Start: 05-10-2020 NEURO/VASCULAR CHECKS S MAGDIEL LAGOS [...] Chele Lagos Comment on above: Performed at [facility] [address] [place] [address] Start: 05-10-2020 Blood typing serologic abo Chele Lagos Work Phone: Start: 05-10-2020 COVID-19 Chele Resendiz H jose Work Phone: Start: 05-09-2020 Basic metabolic pane l calcium total Chele Lagos Work Phone: Start: 05-09-2020 Blood count complete automated Chele Lagos Work Phone: Start: 05-08-2020 Urinalysis microscop ic only Jose Armando Acosta Work Phone: Start: 05-08-2020 Urnls dip stick/tabl et rgnt auto w/o microscopy Jose Armando Acosta Work Phone: Start: 05-03-2020 Basic metabolic pane l calcium total Justino Dhaliwal Work Phone: Start: 05-03-2020 Blood count complete auto&auto difrntl wbc Justino Dhaliwal Work Phone: Start: 04-10-2020 Blood count complete auto&auto difrntl wbc Justino Dhaliwal Work Phone: Start: 04-10-2020 Comprehensive metabo lic panel Justion Dhaliwal Work Phone: Start: 04-10-2020 Urnls dip [...] End: 04-02-2020 CULTURE, BLOOD 1 Mariusz Latanya Rodriguez Work Phone: Start: 04-02-2020 Urnls dip stick/tabl et reagent auto microscopy Kian Cha Klever Start: 04-02-2020 Assay of magnesium Mariusz Rodriguez Work Phone: Start: 04-02-2020 BASIC METABOLIC PANE L W/ REFLEX TO MG FOR LOW K Mariusz Latanya Rodriguez Work Phone: Start: 04-02-2020 Ecg routine ecg w/le ast 12 lds i&r only Kian Cha Klever Start: 04-02-2020 EKG REPORT Hpf Scanni ng Start: 04-02-2020 Assay of troponin quantitative Kian Cha Klever Start: 04-02-2020 Assay of troponin quantitative Kian Cha Klever Start: 04-02-2020 Basic metabolic pane l calcium total Kian Cha Klever Start: 04-02-2020 Blood count complete auto&auto difrntl wbc Kian Cha Klever Start: 04-02-2020 Ecg routine ecg w/le ast 12 lds i&r only Kian Cha Klever Start: 04-02-2020 EKG REPORT Hpf Scanni ng Start: 04-02-2020 Radiologic exam ches t single view Kian Cha Klever Start: 03-25-2020 Blood count complete auto&auto difrntl wbc Justino Paolo Yazmin Work Phone: Start: 03-25-2020 Comprehensive metabo lic panel Justino Paolo Yazmin Work Phone: Start: 03-23-2020 COVID-19 Forest cabrera [...] spine w/ o contrast material Mariusz E [employer] Work Phone: Start: 02-09-2020 Ct head/brain w/o co ntrast material Mariusz Latanya [employer] Work Phone: Start: 02-09-2020 Radex hip unilateral with pelvis 2-3 views Mariusz Latanya [employer] Work Phone: Start: 02-09-2020 Radiologic exam ches t single view Mariusz E [employer] Work Phone: Start: 02-09-2020 Blood count complete auto&auto difrntl wbc Mariusz E [employer] Work Phone: Start: 02-09-2020 Prothrombin time Mariusz E [employer] Work Phone: Start: 02-09-2020 Thromboplastin time partial plasma/whole blood Mariusz E [employer] Work Phone: Start: 02-02-2020 Assay of blood/uric acid [place] U Iboaya Start: 02-02-2020 Assay of magnesium [place] U Iboaya Start: 02-02-2020 Assay of [...] U Iboaya Start: 08-11-2019 Assay of magnesium [place] U Iboaya Start: 08-11-2019 Assay of [...] B12 & FOLATE Be nahili U Iboaya History of operative procedure on knee History of knee replacement Plan of Treatment Date Care Activity Detail Author Start: 10-21-2026 Diabetes Screening Diabetes Screenin gonzalo [facility] Start: 06-09-2024 End: 06-09-2024 Patient encounter procedure Radiology Comment on above: XR ABDOMEN 3V KUB W/ OBLIQUES per checkout US KIDNEY/BLADDER pe r checkout 6 month f/u for neph rolithiasis per checkout Start: 05-28-2024 Influenza vaccination Influenz a Vaccine (Season Ended) [facility] Start: 10-23-2023 Diabetes Screening Diabetes Screenin g [facility] Start: 09-27-2023 Advance Directive Discussion Advance Directive Discussion [facility] Start: 09-27-2023 Behavioral Health Screening Behavioral Health Screening [facility] Start: 09-27-2023 [facility] Start: 08-31-2023 End: 08-31-2023 [facility] Start: 08-31-2023 Plain chest X-ray XR chest 2V* [facility] Start: 08-31-2023 XR Chest 2 Views [facility] Start: 08-31-2023 CT Abdomen and Pelvi s WO contrast [facility] Start: 08-31-2023 CT of abdomen and pe lvis without contrast CT abdomen pelvis wo con [facility] Start: 08-31-2023 CT of head without contrast CT head/brain wo [facility] Start: 08-31-2023 CT Unspecified body region WO contrast [facility] Start: 08-31-2023 [facility] Start: 05-28-2023 Covid-19 Vaccine ( season) Covid-19 Vaccine ( season) [facility] Start: 05-28-2023 Influenza vaccination Influenza Vacc ine (#1) [facility] Start: 09-27-2022 Advance Directive Discussion Advance Directive Discussion [facility] Start: 09-27-2022 Depression Assessment Depression Ass essment [facility] Start: 12-05-2021 Creatinine measurement Creatinine mo [facility] Phone: Start: 12-05-2021 Potassium monitoring Potassium monit [facility] [employer] Phone: Start: 10-30-2021 Lipid panel Lipid screen [facility] Work Phone: Start: 10-23-2021 Creatinine measurement Creatinine mo [place], [place] Start: 10-23-2021 Potassium monitoring Potassium monit [facility], [place] Start: 09-26-2021 Creatinine measurement Creatinine mo [place] Start: 09-26-2021 Potassium monitoring Potassium monit [facility] Start: 09-18-2021 Creatinine measurement Creatinine mo [place] Start: 09-18-2021 Potassium monitoring Potassium monit [facility] [place] Start: 09-11-2021 Creatinine measurement Creatinine mo [place] Start: 09-11-2021 Potassium monitoring Potassium monit [place] Start: 06-19-2021 Lipid panel Lipid screen [place] Start: 05-28-[address] [facility] Work Phone: Start: 04-05-2021 Creatinine measurement Creatinine mo [place] Start: 04-05-2021 Potassium monitoring Potassium monit [place] Start: 03-23-2021 Creatinine measurement Creatinine mo [place] Start: 03-23-2021 Potassium monitoring Potassium monit [place] Start: 03-12-2021 Creatinine measurement Creatinine mo [place] Start: 03-12-2021 Potassium monitoring Pot[place] monit [place] Start: 02-26-2021 Creatinine measurement Creatinine mo [place] Start: 02-26-2021 Potassium monitoring Potassium monit [facility], [place] Start: 02-19-2021 Creatinine measurement Creatinine mo [place] Start: 02-19-2021 Potassium monitoring Potassium monit [facility], [place] Start: 02-08-2021 Creatinine measurement Creatinine mo [place] Start: 02-08-2021 Potassium monitoring Potassium monit [facility], [place] Start: 02-01-2021 Creatinine measurement Creatinine mo [place] Start: 02-01-2021 Potassium monitoring Pot[place] monit [place] Start: 10-30-2020 Creatinine measurement Creatinine mo [place] Start: 10-30-2020 Potassium monitoring Potassium monit [place] Start: 09-12-2020 End: 09-12-2020 Appointment 09/12/2020 Appointment Wound Glenn Camargo, NORAH [address] [place] [id number] [phone] [facility] Start: 08-15-2020 End: 08-15-2020 Appointment 08/15/2020 Appointment Wound Glenn Camargo, NORAH [address] [address] [phone] [facility] Start: 08-11-2020 Creatinine [place] Start: 08-11-2020 Potassium monitoring Potassium monit [place] Start: 07-18-2020 End: 07-18-2020 Appointment 07/18/2020 Appointment Wound Glenn Camargo, NORAH [address] [address] [phone] [facility] Start: 06-27-2020 End: 06-27-2020 Appointment 06/27/2020 Appointment Wound Glenn Camargo, NORAH [address] [place] [id number] [phone] [facility] Start: 06-13-2020 End: 06-13-2020 Appointment 06/13/2020 Appointment Wound Glenn Camargo, NORAH [address] [address] [facility] Start: 05-28-2020 Influenza vaccination [place] Start: 05-28-2019 Influenza vaccination Flu vaccine (# 1) [place] Start: 03-17-2019 Annual Wellness Visi t (AWV) Annual Wellness Visit (AWV) [place] Start: 03-08-2019 Creatinine monitoring Creatinine mon [place]oring [place] Start: 03-08-2019 Lipid panel Lipid screen [place] Start: 03-08-2019 Lipid screen Lipid [place] Start: 03-08-2019 Potassium monitoring Potassium monit [place]ing [place] Start: 2002 DEXA (modify frequen cy per FRAX score) DEXA (modify frequency per FRAX score) [place] Start: 2002 Pneumococcal 65+ yea rs Vaccine (1 of 1 - PPSV23) Pneumococcal 65+ years Vaccine (1 of 1 - PPSV23) [place] Start: 2002 Pneumococcal 65+ yrs at Risk Vaccine (1 of 2 - PCV13) Pneumococcal 65+ yrs at Risk Vaccine (1 of 2 - PCV13) [place] Start: 2002 Pneumococcal Vaccine : 65+ (1 - PCV) Pneumococcal Vaccine: 65+ (1 - PCV) [facility] Start: 2002 Pneumococcal Vaccine : 65+ (1 of 1 - PCV) Pneumococcal Vaccine: 65+ (1 of 1 - PCV) [facility] Start: 2002 Screening for osteoporosis Bone Density Screening [facility] Start: 1997 RSV Vaccine (1 - 1-d ose 60+ series) RSV Vaccine (1 - 1-dose 60+ series) [facility] Start: 1992 Screening for osteoporosis DEXA (modify frequency per FRAX score) [place] Start: 1987 Shingles Vaccine (1 of 2) Galindo gles Vaccine (1 of 2) [place] Start: 1987 Shingrix Vaccine (1 of 2) Galindo grix Vaccine (1 of 2) [facility] Start: 1956 DTaP/Tdap/Td vaccine (1 - Tdap) DTaP/Tdap/Td vaccine (1 - Tdap) [place] Start: 1956 Urine microalbumin profile DTaP,Tdap,Td Vaccine (1 - Tdap) [facility] Start: 1953 COVID-19 Vaccine (1 of 2) COVI D-19 Vaccine (1 of 2) [place] Start: 1949 COVID-19 Vaccine (1) COVID-19 Vaccin e (1) [place] [facility] Work Phone: Start: 1946 DTaP/Tdap/Td vaccine (1 - Tdap) DTaP/Tdap/Td vaccine (1 - Tdap) [place], [place] Start: 02-07-1936 Covid-19 Vaccine (#1) Covid-19 Vacci ne (#1) [facility] Bacteria identified in Blood by Culture [facility] Bacteria identified in Urine by Culture [facility] CBC auto differential CBC auto d ifferential Lab Routine Daily until discontinued starting 04/05/2020, 2 completed [place] Comment on above: Daily until disconti nued starting 04/05/2020, 2 completed Comprehensive metabo lic 2000 panel Comprehensive metabolic panel Lab Routine Daily until discontinued starting 04/05/2020, 2 completed [place] Comment on above: Daily until disconti nued starting 04/05/2020, 2 completed End: 01-06-2025 CT Abdomen and Pelvis WO contrast CT FLANK WO IVCON Radiology STAT Nephrolithiasis 1 Occurrences starting 12/08/2023 until 01/06/2025 [facility] Work Phone: Comment on above: 1 Occurrences starti ng 12/08/2023 until 01/06/2025 Culture, Anaerobic a nd Aerobic Culture, Anaerobic and Aerobic Microbiology Routine 05/10/2020 1:31 PM EDT [place] Culture, Blood [facility] [place] [place] End: 04-10-2020 Culture, Urine Culture, Urine Microbiology Routine Once for 1 Occurrences starting 04/10/2020 until 04/10/2020 [place] Comment on above: Once for 1 Occurrenc es starting 04/10/2020 until 04/10/2020 Culture, Urine [place] End: 05-08-2020 Culture, Urine Culture, Urine Microbiology Routine Once for 1 Occurrences starting 05/08/2020 until 05/08/2020 [place] Comment on above: Once for 1 Occurrenc es starting 05/08/2020 until 05/08/2020 End: 08-09-2020 Culture, Urine Culture, Urine Microbiology Routine Once for 1 Occurrences starting 08/09/2020 until 08/09/2020 [place] Comment on above: Once for 1 Occurrenc es starting 08/09/2020 until 08/09/2020 End: 08-27-2020 Culture, Urine Culture, Urine Microbiology Routine Once for 1 Occurrences starting 08/27/2020 until 08/27/2020 [place] Comment on above: Once for 1 Occurrenc es starting 08/27/2020 until 08/27/2020 Culture, Wound [place] Hemoglobin and Hematocrit, Blood, Post Transfusion Hemoglobin and Hematocrit, Blood, Post Transfusion Lab Routine Post Transfusion Post Transfusion Post Transfustion for 1 Occurrences starting 05/14/2020 [place] Comment on above: Post Transfusion Pos t Transfusion Post Transfustion for 1 Occurrences starting 05/14/2020 Initiate Oxygen Ther apy Protocol Initiate Oxygen Therapy Protocol Respiratory Care Routine Daily until discontinued starting 04/03/2020 [place] Comment on above: Daily until disconti nued starting 04/03/2020 End: 08-11-2019 Iron and TIBC Iron and TIBC Lab Routine Once for 1 Occurrences starting 08/11/2019 until 08/11/2019 [place] Comment on above: Once for 1 Occurrenc es starting 08/11/2019 until 08/11/2019 Iron and TIBC Iron and TIBC La b Routine 08/11/2019 10:35 AM EST [place] End: 10-07-2024 Kidney img morphology vascular flow 1 w/rx NM RENAL FLOW/FXN W PHARM Radiology Routine Hydronephrosis with urinary obstruction due to renal calculus 1 Occurrences starting 09/08/2023 until 10/07/2024 [facility] Work Phone: Comment on above: 1 Occurrences starti ng 09/08/2023 until 10/07/2024 Oxygen therapy [[facility]ini [facility] Data Set] Initiate Oxygen Therapy Protocol Respiratory Care Routine Daily until discontinued starting 05/11/2020 [place] Comment on above: Daily until disconti nued starting 05/11/2020 PREPARE RBC (CROSSMA TCH), 1 Units PREPARE RBC (CROSSMATCH), 1 Units Blood Bank Non-Stat 05/14[facility]2020 8[facility]58 [facility] erythrocyt [facility] [Vol] Transfuse RBC Nursing Transfusion Routine 05/14/2020 11:30 AM EDT [facility], REFLEX MICROSCOPIC URINALYSIS, REFLEX MICROSCOPIC Lab Routine Screening for genitourinary condition Ordered: 12/06/2023 [facility] Work Phone: Comment on above: Ordered: 12/06/2023 End: 01-05-2025 US Kidney - bilateral and Urinary bladder US KIDNEY/BLADDER Radiology Routine Nephrolithiasis 1 Occurrences starting 12/06/2023 until 01/05/2025 [facility] Work Phone: Comment on above: 1 Occurrences starti ng 12/06/2023 until 01/05/2025 End: 01-04-2025 XR Abdomen GE 3 Views AP and Oblique and Cone XR ABDOMEN 3V KUB W/OBLIQUES Radiology Routine Nephrolithiasis 1 Occurrences starting 12/06/2023 until 01/04/2025 [facility] [place] Work Phone: Comment on above: 1 Occurrences starti ng 12/06/2023 until 01/04/2025 [facility] Payers Date Payer Category Payer Self-pay 2023 Medicaid MEDICAID [facility] MEDICAID [id number] 2023-Present [phone] [address] [place] [address] Medicaid [id number] 2023 Unknown [id number] 2022 Medicaid [id number] 2020 Unknown 2017 Medicare BCBS MEDICARE AN THEM MEDIBLUE ESSENTIAL/PLUS xxxxxxxxxxxx 2017-Present [address] [address] [place] [address] xxxxxxxxxxxx [id number] [id number] 2017 Medicare BCBS MEDICARE AN THEM MEDIBLUE ESSENTIAL/PLUS [id number] 2017-Present [address] [address] [place] [address] [id number] .[id number] 2002 Medicare 2002 Medicare [id number] [id number] 1959 Medicare [id number] 1.2.840.276812.1.13.239.2.7.3 .[id number] 1937 Unknown [id number] 2.16.840.1.197277.3.579.2.93 1937 Unknown [id number] 2.16.840.1.072538.3.579.2.196 1937 Unknown [id number] 2.16.840.1.411133.3.579.2.593 1937 Unknown [id number] 2.16.840.1.403943.3.579.2.173 1937 Unknown [id number] 2.16.840.1.180083.3.579.2.173 1937 Unknown [id number] 2.16.840.1.221408.3.579.2.173 1937 Unknown [id number] 2.16.840.1.877563.3.579.2.173 1937 Unknown [id number] 2.16.840.1.682786.3.579.2.173 1937 Unknown [id number] 2.16.840.1.031373.3.579.2.173 1937 Unknown [id number] 2.16.840.1.882758.3.579.2.173 1937 Unknown [id number] 2.16.840.1.181081.3.579.2.173 1937 Unknown [id number] 2.16.840.1.108434.3.579.2.173 1937 Unknown [id number] 2.16.840.1.188069.3.579.2.173 1937 Unknown [id number] 2.16.840.1.361516.3.579.2.727 1937 Unknown [id number] 2.16.840.1.938311.3.579.2.727 1937 Unknown [id number] 2.16.840.1.504703.3.579.2.125 9 1937 Unknown [id number] 2.16.840.1.843112.3.579.2.125 9 1937 Unknown [id number] 2.16.840.1.086198.3.579.2.125 9 1937 Unknown [id number] 2.16.840.1.398911.3.579.2.125 9 1937 Unknown [id number] 2.16.840.1.704092.3.579.2.125 9 1937 Unknown [id number] 2.16.840.1.706517.3.579.2.125 9 1937 Unknown [id number] 2.16.840.1.744792.3.579.2.125 9 1937 Unknown [id number] 2.16.840.1.417621.3.579.2.134 7 Unknown [id number] 2.16.840.1.178735.3.579.2.531 Social History Date Type Detail Facility Start: 09-27-2017 End: 09-07-2023 Tobacco smoking status NHIS Never smoker [facility] Start: 09-27-2017 End: 09-12-2020 Alcohol intake Current non-drinker of alcohol (finding) [place], [place] Start: 1935 Sex Assigned At Not on file [employer], [place] Exposure to SARS-CoV-2 (event) Unable to assess [place] [employer], [place] Start: 04-03-2020 End: 09-07-2023 Tobacco use and exposure Never used [employer], [place] Exposure to SARS-CoV-2 (event) Not sure [employer], [place] Exposure to SARS-CoV-2 (event) Yes [employer], [place] Start: 09-07-2023 End: 12-06-2023 Sex Assigned At [facility] [employer] Other Start: 1935 Sex Assigned At Female F [facility] Start: 09-07-2023 End: 12-06-2023 History of Social function [facility] National Score (1-100), lower number is lower risk 63 [facility] Start: 12-06-2023 Alcohol intake Lifetime non-d denise (finding) [facility] Medical Equipment Procedure Code Equipment [...] 52 [id number] Start: 05-10-2020 Redapt Modular- Ackerman/Nephew 93_imp Start: 05-10-2020 Impl Hip Fem Com p Redapt 240mm Sz 15 935_imp Start: 05-10-2020 Impl Hip Fem Hea d Coblt Chrome 12to14 3 [id number] Start: 05-10-2020 Stent Inlay Opti ma 7fr Taper [employer] Green Polymer Phreecoat 24cm Ureteral - [id number]_[id number] Start: 10-18-2023 Clinical Notes 05-26-2023 to 02-17-2024 [...] 2024 11:09 AM ----- Message from Khushboo Davial sent at 02/17/2024 10:57 AM EDT ----- Regarding: CT Follow up Contact: Good morning, Pt daughter called she wants someone to call her and go over pt CT with her and discuss the next steps. Please advise. Thanks, Khushboo Clay Urology [facility] 02-17-2024 Miscellaneous Notes Called and spoke with patients daughter to discuss external CT results. 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 No swelling or obstruction seen in either kidney. Will update Mark FranciscoWiley to review actual imaging and advise on [...] the next steps. Please advise. Thanks, Khushboo HollidayAdm Urology documented in this encounter [facility] 01-31-2024 Telephone encounter Note Today we got an outside CT faxed in for Jesús. It is uploaded in her scanned documents. [facility] 01-31-2024 Miscellaneous Notes Today we got an outside CT faxed in for Jesús. It is uploaded in her scanned documents. documented in this encounter [facility] 01-04-2024 Miscellaneous Notes Mailed pt CT orders so they can have done locally when they get apt they will call to schedule VV with Mark Cesar documented in this encounter [facility] 12-08-2023 Miscellaneous Notes Addended by: [...] 2023 12 PM documented in this encounter [facility] 12-06-2023 Note HNO ID: [id number] Author: MARK CESAR PA-C Service: ? Author Type: Physician Dance Therapist Type: Progress Notes Filed: 12/07/2023 14:24 Note [...] Monocytes % 10/17/2023 9.5 % Final Abs Charlton 10/17/2023 0.68 <0.87 k/uL Final Eosinophils % [...] (H) 74 - 99 mg/dL Final The [place] Diabetes Association (ADA) provides guidance for cutoff [...] Standards of Medical Care in Diabetes 2016, [place] Diabetes Association. Diabetes Care. 2016.39(Suppl 1). BUN [...] Final Calcium, Total (more content not included)... [facility] 12-06-2023 Note HNO ID: [id number] Author: STAR CANALES RT(R) Service: ? Author [...] PATIENT PRESENTS WITH AN IMPLANTABLE OR ATTACHED JANITORIAL ACCOUNT MANAGER: No RADIOLOGY DEPARTMENT: General X-ray: Exam(s) Completed: Abdomen X-Ray: Abdomen with Obliques PERIPHERAL IV DATA: Not applicable SIGNED BY: RT Eveline(R) December 06, 2023 1:47 PM [facility] 12-06-2023 Instructions Mark Cesar PA-C - 12/06/2023 2:49 PM EDT documented in this encounter [facility] 12-06-2023 History of Presen t [...] Monocytes % 10/17/2023 9.5 % Final Abs Charlton 10/17/2023 0.68 <0.87 k/uL Final Eosinophils % [...] (H) 74 - 99 mg/dL Final The [place] Diabetes Association (ADA) provides guidance for cutoff [...] Standards of Medical Care in Diabetes 2016, [place] Diabetes Association. Diabetes Care. 2016.39(Suppl 1). BUN [...] with VKA drugs, such as warfarin, the [place] College [employer] Chest [employer]icians 2012 Guideline recommends [...] Chest 2012, 141:7S-47S Shital RA, et al. [facility] 2017, 70: 252-289 WBC 10/18/2023 18.32 (H) [...] (H) 74 - 99 mg/dL Final The [place] Diabetes Association (ADA) provides guidance for cutoff [...] Standards of Medical Care in Diabetes 2016, [place] Diabetes Association. Diabetes Care. 2016.39(Suppl 1). BUN [...] developed and its performance characteristics determined by [facility]'s Jigar Brody [facility] Pathology and Laboratory Medicine [place] ([facility]). It has not been cleared or approved by the FDA. [facility] is regulated under CLIA as qualified to perform high-complexity testing. This test is used for clinical purposes. It should not be regarded as investigational or for research. Glucose 10/19/2023 131 (H) 74 - 99 mg/dL Final The [place] Diabetes Association (ADA) provides guidance for cutoff [...] Standards of Medical Care in Diabetes 2016, [place] Diabetes Association. Diabetes Care. 2016.39(Suppl 1). BUN [...] Monocytes % 10/19/2023 8.7 % Final Abs Charlton 10/19/2023 1.09 (H) <0.87 k/uL Final Eosinophils [...] 92 74 - 99 mg/dL Final The [place] Diabetes Association (ADA) provides guidance for cutoff [...] Standards of Medical Care in Diabetes 2016, [place] Diabetes Association. Diabetes Care. 2016.39(Suppl 1). BUN [...] (H) 74 - 99 mg/dL Final The [place] Diabetes Association (ADA) provides guidance for cutoff [...] Standards of Medical Care in Diabetes 2016, [place] Diabetes Association. Diabetes Care. 2016.39(Suppl 1). BUN [...] All fluids count but water is best. [place] intake - Recommend increasing dietary citrate intake. [...] your diet without supplements if you eat tfort-if-flao servings of calcium-rich food. Many foods and [...] is affecting your uric acid levels. https://www.urologyhealth.org/ur ology-a-z/k/kidney-stones#Preven tion%20of%20Future%20Stones RTC in 6 months w/ new imaging. I spent a total of 20 minutes on the date of the service which included preparing to see the patient, hzfb-zo-mzco patient care, completing clinical documentation, obtaining and/or reviewing separately obtained history, counseling and educating the patient/family/caregiver, ordering medications, tests, or procedures, and communicating results to the patient/family/caregiver. Mark O'Wiley, PA-C documented in this encounter [facility] 12-06-2023 Note Patient Outreach (UR OLMN) OVIDIOJESÚS ([id number]) 1935 F Date Time Provider Department 12/06/23 MARK CESAR During your visit today, we recorded the following information about you: Allergies As of Date: 12/06/2023 (No Known Allergies) Date Reviewed: 12/06/2023 Reviewed by: Kya Rodriguez OCCA - Fully Assessed Visit Diagnosis:Screening for genitourinary condition [Z13.89] Order(s):URINALYSIS, REFLEX MICROSCOPIC [[id number]] Order #: [id number]. #:[id number] Prescriptions as of 12/09/2023 - acetaminophen (TYLENOL [...] Encounter Status:Closed by EPIC, PRODUSER on 12/09/23 [facility] 12-06-2023 History of Presen t illness [...] PATIENT PRESENTS WITH AN IMPLANTABLE OR ATTACHED JANITORIAL ACCOUNT MANAGER: No RADIOLOGY DEPARTMENT: General X-ray: Exam(s) Completed: Abdomen X-Ray: Abdomen with Obliques PERIPHERAL IV DATA: Not applicable SIGNED BY: RT Eveline(R) December 06, 2023 1:47 PM documented in this encounter [facility] 10-27-2023 Note HNO ID: [id number] Author: RICCO GARLAND MD Service: ? Author Type: Physician Type: Progress Notes Filed: 10/27/2023 13:12 Note Text: CYSTOSCOPY PROCEDURE Shona'Skye DODGE NOTE Pertinent History and Physical Exam [...] Ricco Garland MD Director, [facility] [place], [facility] Pager [phone] 10/27/2023 [facility] 10-27-2023 Note HNO ID: [id number] Author: CHRISTA FLANAGAN RN Service: ? Author [...] Visit completed when applicable. Christa Flanagan RN [facility] 10-21-2023 Note HNO ID: [id number] Author: JACOB PALMER MD Service: Urology Author Type: Resident Type: Progress Notes Filed: 10/21/2023 06:46 Note Text: [facility] UROLOGY PROGRESS NOTE Name: Jesús Nolan Bed: G090 [id number]/[id number] Date: 10/21/2023 After Hours [facility] Urology Service Pager: [phone] ASSESSMENT Jesús Nolan is a 88 year [...] physician Dr Dada Esteves MD Urology PGY2 [facility] [place] For weekend or after hours issues [place] [phone] Active Problems Anemia of chronic disease, POA- [...] 1.91* GLUC 92 131* 197* Imaging Reviewed [facility] 10-20-2023 Note HNO ID: [id number] Author: LORENA PRESTON RPh Service: Pharmacy Author [...] Solid Organ Transplant and Internal Medicine Clinical Drilling Plant Operator Phone: [phone] Serum creatinine: 2.02 mg/dL (H) 10/19/23 0615 [...] Your Medications These medications were sent to [facility]/pharmacy #[id number] [place] [address] [address] [address] - [phone] [place] [address] [address] [facility] [address] amoxicillin 250 mg capsule tamsulosin 0.4 mg You can get these medications from any pharmacy You don't need a prescription for these medications acetaminophen 500 mg tablet [facility] 10-20-2023 Note HNO ID: [id number] Author: RICCO GARLAND MD Service: Urology Author [...] FACS Director, Surgical Stone Disease, [facility] [place] baseboard heating installer, [facility] Pager [phone] 10/20/2023 [facility] 10-20-2023 Note HNO ID: [id number] Author: YESSICA LEE, [place] Service: Pharmacy Author Type: Build Master Type: Plan of Care Filed: 10/20/2023 08:37 Note Text: Insurance investigation completed Patient has active prescription insurance: Yes - Patient's insurance is in-network with [facility] Insurance loaded into [place]: Yes Test claim was completed to verify insurance is active: Successful Any questions, please contact your medication family services coordinator. Pager #: [phone] [facility] 10-20-2023 Note HNO ID: [id number] Author: RICCO GARLAND MD Service: Urology Author [...] mental status. Her stone came back infected (rbrhurpyz-hqclexcm-dmzzasamy) and even though there are no other signs of sepsis at this time, we need to watch for this as well. Ricco Garland MD, FACS Director, Surgical Stone Disease, [facility] [place] baseboard heating installer, [facility] Pager [phone] 10/20/2023 [facility] 10-20-2023 Note HNO ID: [id number] Author: JACOB PALMER MD Service: Urology Author Type: Resident Type: Progress Notes Filed: 10/20/2023 06:56 Note Text: [facility] UROLOGY PROGRESS NOTE Name: Jesús Nolan Bed: G090 [id number]/[id number] Date: 10/20/2023 After Hours [facility] [place] [facility] Service Pager: [phone] ASSESSMENT Jesús Nolan is a 88 year [...] physician Dr Dada Esteves MD Urology PGY2 [facility] [place] For weekend or after hours issues [place] [phone] Active Problems Anemia of chronic disease, POA- [...] 2.11* GLUC 131* 197* 129* Imaging Reviewed [facility] 10-19-2023 Note HNO ID: [id number] Author: SERG ROTH LSW Service: Care Management Author Type: Nightman Type: Care Mgt Initial Assessment Filed: 10/19/2023 16:08 Note Text: CARE MANAGEMENT: ASSESSMENT AND DISCHARGE PLAN SERVICE DATE: October 19, 2023 SERVICE TIME: 4:04 PM PCP: Brina Cordero MD Primary Contact: Extended Emergency Contact Information Primary Emergency Contact: [facility] Mobile Relation: Daughter Admission Status: Observation Insurance Provider: MEDICARE A AND B Discharge Planning requested by: Per Department Practice Potential Transition Plans Jail/Supervised Living Advance Directives Current Advance Directive: None Broom Bundler Attempted to Assist with AD Completion: Yes Action: Education Provided Current Living Arrangements and Support Lives with: Other person(s) Assisted Living Type of Residence: Assisted Living Facility Care Facility Name: [facility] [phone] Support: Family members How do you manage to accomplish the following: Needs Assistance: Ambulation;Bathe/Shower;Dress;Me als/Meal Prep;Going to the bathroom;Medication Management;Transportation to appointments/community Current Services/Equipment Current Post-Acute Service(s): None Discharge Planning Patient Goal(s): Be able to go home, General wellness [place] of Choice Explained: [place] of Choice Given: No Reason Not Given: No placements necessary Are you interested in bedside delivery of your medications? Yes Discharge Planning Participant(s): Patient;Family Patient/Family Comments: Dtr completed assessment. Pt is extremely [place] Caregiver Assessment: Caregiver is ready, willing and able to meet the patient's needs as recommended by the inter-professional team: Yes Transport at Discharge: Transportation Arrangements: Car Needs Prior to Discharge: Needs Prior to Discharge: None Post-Acute Discharge Plan: Chart reviewed and initial assessment completed. Met with pt at bedside. Pt is very [place]. Vision is limited as well. She gave permission to speak with her dtr, Maranda. Call placed to Maranda. Pt lives in at [facility] ([phone]). The assisted living assists with meals, meds, and some personal care as needed. Plan is to return to assisted living at ca. Dtr will transport. Call placed to [facility]. Spoke with Mahsa in admissions. She [...] 19, 2023 TIME: 4:04 PM CONTACT #: [phone] [facility] 10-19-2023 Note HNO ID: [id number] Author: JACOB PALMER MD Service: Urology Author Type: Resident Type: Progress Notes Filed: 10/19/2023 06:55 Note Text: [facility] UROLOGY PROGRESS NOTE Name: Jesús Nolan Bed: G090 033/[id number] Date: 10/19/2023 After Hours [facility] Urology Service Pager: [phone] ASSESSMENT Jesús Nolan is a 88 year [...] physician Dr Dada Esteves MD Urology PGY2 [facility] [place] For weekend or after hours issues [place] [phone] Active Problems Anemia of chronic disease, POA- [...] 2.11* GLUC -- 197* 129* Imaging Reviewed [facility] 10-18-2023 Note HNO ID: [id number] Author: JACOB PALMER MD Service: Urology Author Type: Resident Type: Progress Notes Filed: 10/18/2023 18:13 Note Text: [facility] UROLOGY PROGRESS NOTE Name: Jesús Nolan Bed: G090 033/[id number] Date: 10/18/2023 After Hours [facility] Urology Service Pager: [phone] ASSESSMENT Jesús Nolan is a 88 year [...] physician Dr Dada Esteves MD Urology PGY2 [facility] [place] For weekend or after hours issues [place] [phone] Active Problems Anemia of chronic disease, POA- [...] 30* CREAT 2.11* GLUC 129* Imaging Reviewed [facility] 10-18-2023 Note HNO ID: [id number] Author: JON CERDA SRNA Service: ? Author [...] October 18, 2023 TIME: 8:33 AM CSN: [id number] [facility] 10-18-2023 Note HNO ID: [id number] Author: JON CERDA SRNA Service: ? Author [...] October 18, 2023 TIME: 8:32 AM CSN: [id number] [facility] 10-18-2023 Note HNO ID: [id number] Author: JON CERDA SRNA Service: ? Author [...] October 18, 2023 TIME: 8:27 AM CSN: [id number] [facility] 10-17-2023 Note HNO ID: [id number] Author: RONEL JUAN RN Service: Nursing Author [...] maranda and son in law at bedside. [facility] 10-17-2023 Note HNO ID: [id number] Author: RONEL JUAN RN Service: Nursing Author Type: Registered Nurse Type: Progress Notes Filed: 10/17/2023 11:01 [place]: [place] [phone] Urology: Jesús Nolan G90/33 patient is here as a direct admit. Awaiting orders. Ronel Juan RN [facility] 09-09-2023 Evaluation note Encounter Date Diagnosis Assessment Notes Aug, Acute UTI (ICD-10 - N39.0) Finish antibiotic prescribed at [facility]. Aug, Staghorn calculus (ICD-10 - N20.0) Plan per surgeon in [place] - has appt for preoperative testing Aug, Obstructive uropathy (ICD-10 - N13.9) Aug, Metabolic encephalopathy (ICD-10 - G93.41) improved on proper antibiotics Aug, CKD (chronic kidney disease) stage 4, GFR 15-29 ml/min (ICD-10 - N18.4) stable, has televisit with her [employer] in near future. [employer] Other 12-12-2023 NotePatient Outreach (UROLMN) OVIDIOJESÚS ([id number]) 1935 F Date Time Provider Department 09/07/23 RICCO GARLAND During your visit today, we recorded the following information about you: Allergies As of Date: 09/07/2023 (No Known Allergies) Date Reviewed: 09/07/2023 Reviewed by: Karen Calvillo OCCA - Fully Assessed Visit Diagnosis:Screening for genitourinary condition [Z13.89] Order(s):URINALYSIS, REFLEX MICROSCOPIC [FZZ2114] Order #: [id number]. #:[id number] Prescriptions as of 09/10/2023 - VITAMIN C [...] hip surgery [Z98.890] 09/07/2023 Encounter Status:Closed by [facility] on 09/10/23[facility] 09-07-2023 NoteHNO ID: [id number] Author: Ricco Garland MD Service: ? Author [...] hardly hear me. Though not listed in [employer], patient's daughter indicates Dr. Harsh Clayton recommended [...] based on size, location, hounsfield units and gaii-rs-yglzb distance: 0% 3. Ureteroscopy - risks of [...] with more than 50% of the total graa-bw-thio time of the visit devoted to patient counseling/coordination of care. Ricco Garland MD, FACS Director, Surgical Stone Disease, [facility] [place] baseboard heating installer, [facility] Pager [phone] 09/07/2023[facility]09-15-2023 Evaluation note* Encounter Date Diagnosis Assessment Notes Treatment Notes Treatment Clinical Notes May, Bilateral impacted cerumen (ICD-10 - H61.23) [employer] Other 08-30-2023 Evaluation note* Encounter Date Diagnosis [...] chronic disease (ICD-10 - D63.8) As above. [employer] Other Evaluation noteNo InformationNort VANCL Other Evalufhkiw note* Diagnosis Onset Date Resolution Status Acute metabolic encephalopathy acute PRESTON (acute kidney injury) ac debi Constipation acute Dementia acute Hallucinations acute Hypertension acute Right nephrolithiasis acute Staghorn calculus acute UTI (urinary tract infection) acute [facility] Work Phone: Evaluation note* Diagnosis Hydronephrosis with urinary obstruction due to renal calculus- Primary Nephrolithiasis Calculus of kidney [facility] Nephrolithiasis- Primary Calculus of kidney Nephrolithiasis Calculus of kidney [facility] Nephrolithiasis Calculus of kidney [facility] Nephrolithiasis Calculus of kidney [facility] Diagnosis Nephrolithiasis- Primary Calculus of kidney Hydronephrosis, unspecified hydronephrosis type [facility] Diagnosis Nephrolithiasis- Primary Calculus of kidney documented in this encounter [facility] note* Diagnosis Screening for genitourinary condition Screening for other and unspecified genitourinary condition documented in this encounter [facility] noteNo assessment [facility] Work Phone: History general Narrative - Reported* [...] History CHOLECYSTECTOMY Hospitalization History SEE SURGICAL HX [facility] [employer] Other Reason for referral (narrative)* Diagnostic Procedure Only (Routine) - Pending Review Specialty Diagnoses / Procedures Referred By Megha frederick Referred To Contact MOLECULAR & FUNCTIONAL IMAGING Diagnoses Hydronephrosis with urinary obstruction due to renal calculus Procedures NM RENAL FLOW/FXN W PHARM KIDNEY IMG MORPHOLOGY VASCULAR FLOW 1 W/RX Ricco Garland MD [address] [place] [address] Molecular & Functional Imaging [address] [place] [address] Referral ID Status Reason Start Date Expiration Date Visits Requested Visits Authorized [id number] Pending Review Auto-Generat ed Referral 3 10/07/2024 1 1 [facility] for referral (narrative)* Diagnostic Procedure Only (Routine) - Closed Specialty Diagnoses / Procedures Referred By Megha frederick Referred To Contact XR IMAGING Diagnoses Nephrolithiasis Procedures XR ABDOMEN 3V KUB W/OBLIQUES RADIOLOGIC EXAM ABDOMEN 3+ VIEWS Ricco Garland MD [address] [place] [id number] Xr Imaging [place] [address] Referral ID Status Reason Start Date Expiration Date V isits Requested Visits Authorized [id number] Closed Auto-Generate d Referral 10/27/2023 11/25/2024 1 1 [facility] for referral (narrative)* Diagnostic Procedure Only (Routine) - Closed Specialty Diagnoses / Procedures Referred By Contac t Referred To Contact US IMAGING Diagnoses Nephrolithiasis Procedures US KIDNEY/BLADDER US RETROPERITONEAL REAL TIME W/IMAGE COMPLETE Ricco Garland MD [address] [place] [address] [place] [address] Referral ID Status Reason Start Date Expiration Date V isits Requested Visits Authorized [id number] Closed Auto-Generate d Referral 10/27/2023 11/25/2024 1 1 [facility] for referral (narrative)* Diagnostic Procedure Only (Routine) - Authorized Specialty Diagnoses / Procedures Referred By Contac t Referred To Contact XR IMAGING Diagnoses Nephrolithiasis Procedures XR ABDOMEN 3V KUB W/OBLIQUES RADIOLOGIC EXAM ABDOMEN 3+ VIEWS Mark Cesar PA-C [address] [place] [address] [place] [address] Referral ID Status Reason Start Date Expiration Date Visits Requested Visits Authorized [id number] Authorized Auto-Generat ed Referral 12/06/2023 01/04/2025 1 1 * Diagnostic Procedure Only (Routine) - Authorized Specialty Diagnoses / Procedures Referred By Contac t Referred To Contact US IMAGING Diagnoses Nephrolithiasis Procedures US KIDNEY/BLADDER US RETROPERITONEAL REAL TIME W/IMAGE COMPLETE Mark Cesar PA-C [address] [place] [address] [place] [address] Referral ID Status Reason Start Date Expiration Date Visits Requested Visits Authorized [id number] Authorized Auto-Generat ed Referral 12/06/2023 01/04/2025 1 [facility] Diagnostic Procedure Only (Routine) - Closed Specialty Diagnoses / Procedures Referred By Contac t Referred To Contact US IMAGING Diagnoses Nephrolithiasis Procedures US KIDNEY/BLADDER US RETROPERITONEAL REAL TIME W/IMAGE COMPLETE Ricco Garland MD [address] [place] [address] [place] [address] Referral ID Status Reason Start Date Expiration Date V isits Requested Visits Authorized [id number] Closed Auto-Generate d Referral 10/27/2023 11/25/2024 1 1 [facility] Advance Directives No Advanced Directives Records FoundDocuments on File Type Date Recorded Patient Finance Business Partner Expl anation Advance Directives and Living Will Power of Lawyer Criminal Documents on File Type Date Recorded Patient Finance Business Partner Expl anation Advance Directives and Living Will Power of Lawyer Criminal Latest Code Status on File Code Status Date Activated Date Inactivated Comments DNR-CCA 04/05/2020 7:40 AM Full Code 04/02/2020 11:53 PM 04/05/2020 7:40 AM Documents on File Type Date Recorded Patient Finance Business Partner Expl anation Advance Directives and Livin g Will Advance Directives and Livin g Will 04/09/2020 4:57 PM Power of Lawyer Criminal Power of Lawyer Criminal 04/09/2020 4:57 PM Latest Code Status on File Code Status Date Activated Date Inactivated Comments DNR-CCA 04/05/2020 7:40 AM 04/06/2020 2:39 PM Full Code 04/02/2020 11:53 PM 04/05/2020 7:40 AM Documents on File Type Date Recorded Patient Finance Business Partner Expl anation ACP-Advance Directive ACP-Advance Directive 04/09/2020 4:57 PM ACP-Power of Lawyer Criminal ACP-Power of Lawyer Criminal 04/09/2020 4:57 PM DNR Documentation 04/09/2020 4:57 PM Latest Code Status on File Code Status Date Activated Date Inactivated Comments Full Code 05/10/2020 3:57 PM Full Code 05/10/2020 10:16 AM 05/10/2020 3:48 PM DNR-CCA 04/05/2020 7:40 AM 04/06/2020 2:39 PM Documents on File Type Date Recorded Patient Finance Business Partner Expl anation ACP-Advance Directive ACP-Advance Directive 04/09/2020 4:57 PM ACP-Do Not Resuscitate 05/16/2020 1:04 PM ACP-Power of Lawyer Criminal ACP-Power of Lawyer Criminal 04/09/2020 4:57 PM DNR Documentation 04/09/2020 4:57 PM Latest Code Status on File Code Status Date Activated Date Inactivated Comments Full Code 05/10/2020 3:57 PM 05/15/2020 9:57 PM Full Code 05/10/2020 10:16 AM 05/10/2020 3:48 PM DNR-CCA 04/05/2020 7:40 AM 04/06/2020 2:39 PM Documents on File Type Date Recorded Patient Finance Business Partner Expl anation ACP-Advance Directive ACP-Advance Directive 04/09/2020 4:57 PM ACP-Advance Directive 06/13/2020 10:59 AM ACP-Do Not Resuscitate 05/16/2020 1:04 PM ACP-Do Not Resuscitate ACP-Do Not Resuscitate 06/13/2020 10:59 AM ACP-Power of Lawyer Criminal ACP-Power of Lawyer Criminal 04/09/2020 4:57 PM DNR Documentation 04/09/2020 4:57 PM Documents on File Type Date Recorded Patient Finance Business Partner Expl anation ACP-Advance Directive ACP-Do Not Resuscitate ACP-Power of Lawyer Criminal ACP-Advance Directive 06/13/2020 10:59 AM ACP-Do Not Resuscitate 06/13/2020 10:59 AM ACP-Do Not Resuscitate 05/16/2020 1:04 PM ACP-Advance Directive 04/09/2020 4:57 PM ACP-Do Not Resuscitate 04/09/2020 4:57 PM ACP-Power of Lawyer Criminal 04/09/2020 4:57 PM Advance Directive Response Recorded Date/ Time Advance Directives No August 31, 2023 8:19pm Advance Directive Response Recorded Date/ Time Advance Directives No August 31, 2023 9:19pm Reason for Referral Status Reason Specialty Diagnoses / Procedures Referre d By Contact Referred To Contact Open Radiology Diagnoses Chronic kidney disease, stage IV (severe) (HCC) Procedures US RENAL COMPLETE IbDilan hernandez U, DO Status Reason Specialty Diagnoses / Procedures Referred By Contact Referred To Contact Open Specialty Services Required Physical Therapy Diagnoses General weakness Ricco Sánchez MD [address] [place] [address], [place] [address] Specialty Diagnoses / Procedures Referred By Megha frederick Referred To Contact CT IMAGING Diagnoses Nephrolithiasis Procedures CT FLANK WO IVCON CT ABD & PELVIS W/O CONTRAST Mark Cesar PA-C [address] [place] [address] [place] [address] Referral ID Status Reason Start Date Expiration Date Visits Requested Visits Authorized [id number] Pending Review Auto-Generat ed Referral 12/08/2023 01/06/2025 1 1 Assessments Diagnosis Chronic kidney disease, stage IV (severe) (HCC) Chronic kidney disease, Stage IV (severe) Diagnosis Closed displaced intertrochanteric fracture of left femur, initial encounter ([facility]) Diagnosis Pain of left hip joint [...] Care Everywhere. * Hip Fracture: Surgery: Post-op (Danish) documented in this encounter* Discharge Instr - [...] most local grocery stores, pharmacies, and chain super-stores. ? If you have any questions about [...] Hospital Unit/Room#: 0311/0311-01 Discharging Unit Phone Number: [phone] Emergency Contact: Extended Emergency Contact Information Primary Emergency Contact: Isaias Nolan [address]: [address] [place] [address] [address] [place] [address] Relation: Spouse Secondary Emergency Contact: Maranda Da [...] Dependent Dressing Dependent Toileting Dependent Feeding Independent Superintendent Pressure Assisted Med Delivery whole Wound Care Documentation [...] Readmission: 15 Discharging to Facility/ Agency Name: [facility] Address:[address] [facility] Dialysis Facility (if applicable) Name: Address: Dialysis Schedule: Phone: Fax: Water Use Inspector/Nightman signature: PHYSICIAN SECTION Prognosis: {Prognosis:2353582533} Condition at Discharge: { Patient Condition:597466688} Rehab Potential (if transferring to Rehab): {Prognosis:2280383024} Recommended Labs or Other Treatments After Discharge: Physician Certification: I certify the above information and transfer of Jesús Nolan is necessary for the continuing treatment of the diagnosis listed and that she requires Prison Facility for greater 30 days. Update Admission H&P: {CHP DME Changes in HandP:030358052} PHYSICIAN SIGNATURE: {Esignature:139734249} documented in this encounter* Discharge Instr - [...] Information Primary Emergency Contact: Isaias Nolan Address: [address] [place] [id number] Relation: Spouse Secondary Emergency Contact: Maranda Da Silva Relation: Child Past Surgical History: Past Surgical History: Procedure Laterality Date CHOLECYSTECTOMY HYSTERECTOMY JOINT REPLACEMENT knee REVISION TOTAL HIP ARTHROPLASTY Left 05/10/2020 HARDWARE REMOVAL LEFT HIP, CONVERSION TO LEFT TOTAL HIP performed by Chele Lagos MD at [facility] OR Immunization History: There is no immunization [...] Assisted Dressing Assisted Toileting Assisted Feeding Independent Superintendent Pressure Assisted Med Delivery whole Wound Care Documentation [...] Readmission: 20 Discharging to Facility/ Agency Name: [facility] Address: [address] [place] [address] Dialysis Facility (if applicable) Name: Address: Dialysis Schedule: Phone: Fax: Water Use Inspector/Nightman signature: ICIAN SECTION Prognosis: Fair Condition at [...] not made for you at discharge, call [phone] ([place] office) or [phone] ([place] office) to schedule an appointment for 8 [...] Everywhere. * Hip Replacement: Posterior: Precautions: Post-op (Danish) * Hip Replacement Surgery: Posterior: Post-op (Danish) documented in this encounter* Instructions* Leta Irwin RN - 05/30/2020 Wound Management Patient Discharge Instructions CALL [phone] for questions regarding care of your wounds. [...] Put on bandages as your doctor or outpatient coding specialist says. Keep healthy tissue around the [...] Where can you learn more? Go to [email or web address] and sign in to your [employer] account. Enter F114 in the Search Health Information box to learn more about Pressure Injuries: Care Instructions. If you do not have an account, please click on the Sign Up Now link. Current as of: November 29, 2019 Content Version: 12. [employer]. Care instructions adapted under license by [employer]. If you have questions about a medical condition or this instruction, always ask your healthcare professional. [employer] disclaims any warranty or liability for your use of this information. Wound Management Patient Discharge Instructions CALL [phone] for questions regarding care of your wounds. [...] care today! documented in this encounter* Instructions* Crysatl Jones RN - 06/27/2020 Wound Management Patient Discharge Instructions CALL [phone] for questions regarding care of your wounds. [...] 07/18/2020 Wound Management Patient Discharge Instructions CALL [phone] for questions regarding care of your wounds. [...] 09/12/2020 Wound Management Patient Discharge Instructions CALL [phone] for questions regarding care of your wounds. [...] 08/15/2020 Wound Management Patient Discharge Instructions CALL [phone] for questions regarding care of your wounds. [...] Course Note Admission Information Bell t: Jesús Nolan : 1935 Admission date: [...] know that pt is discharged back to [facility]. Voicemail left for to return call. * [...] 04/05/2020 7:53 AM EDT Occupational Therapy Facility/Department: [facility] Daily Treatment Note NAME: [...] Pt uncooperative with assessment. Eyes closed upon gag writer entering room, easily aroused. Pt yells at gag writer to leave her alone. Pt tachypneic [...] Patient has not eaten any meals today. Auditor Tax attempted to help feed the patient. Patient refused. * Robinson Ellsworth PTA - 04/04/2020 2:38 PM EDT Physical Therapy Facility/Department: [facility] Daily Treatment Note NAME: [...] is approved by insurance to return to [facility] home. SAAD Hough * Caprice Echeverria RN [...] Tells me that she has been at [facility] for 6 weeks now for therapy after a fractured hip. Her confusion has gradually gotten worse, more so lately. Support given. states that she has been unable to walk lately, which is the reason she was brought to the hospital. Admitted with cellulitis. Spiritual screening done. Tells me that the dietitian helper visited with them yesterday. Denies any spiritual needs at this time. Emotional support given. DNR paper order form to be placed on paper chart for signature. Will continue to follow and support. Caprice Echeverria RN, [facility] Palliative Care Nurse Coordinator 04/04/2020 11:24 AM * Alicia Miller RN - 04/04/2020 9:04 AM EDT Patient resting quietly in bed. No complaints at this time. Patient tolerated medications well. * Alicia Miller RN - 04/04/2020 8:45 AM EDT Patient refuses breakfast at this time. * Natalie Guzman, CTRS - 04/04/2020 8:39 AM EDT Physical Therapy Facility/Department: [facility] Daily Treatment Note NAME: [...] like for her mother to return to [facility] following this hospitalization. Daughter is aware, per this gag writer, that [facility] does have Covid positive resident in their facility at this time. Referral made to [facility] via telephone voicemail message left for Kapil Orta re:above. [facility] will begin pre-cert and notify HUMID SYSTEM OPERATOR when Patient is able to return. SAAD Koroma 04/03/2020 * Iza Hein LSW - 04/03/2020 3:15 PM EDT Met with Patient to discuss discharge planning. Unable to complete assessment due to Patient confusion. Telephone voicemail message left for Patient's spouse and for her daughter. Spoke with Admission's outside dealer sales representative at [facility] where Patient was residing at the time ofher hospitalization. She states that [facility] will take Patient back if she or her family chooseto send her back at this time with the knowledge that [facility] has Covid positive Patient in their facility at this time. HUMID SYSTEM OPERATOR will await a telephone call back from Patient's family to determine discharge planning goals. SAAD Koroma 04/03/2020 * Gretchen Chapa, SUZI - 04/03/2020 3:09 PM EDT [facility] Inpatient/Observation/Outpatient Rehabilitation Date: 04/03/2020 Patient Name: Jesús [...] 04/03/2020 9:30 AM EDT Physical Therapy Facility/Department: [facility] Initial Assessment NAME: Jesús [...] History Lives With: Alone Type of Home: Facility([facility]) Home Layout: One level Home Equipment: Rolling walker ADL Assistance: Needs assistance Homemaking Assistance: Needs assistance IADL Comments: Limited hx provided by pt d/t impaired cognition. Pt resided at [facility], butunable to determine what length of time. Per EMR, pt went to [facility] for rehab following L hip fx. Cognition [...] Astrid Alan, PT , DPT * Sofía Esparza, RD, LD - 04/03/2020 8:17 AM EDT [...] 5. Fluid Accumulation-Mild fluid accumulation, Extremities 6. Improvement Leader Strength-Not measured Recent Labs 04/02/20 1445 04/02/20200404/03/20 0555 NA 137 139 140 K 2.9* 3.4* 3.5* CL 92* 96* 96* CO2 29 28 26 BUN 37* 35* 30* CREATININE 1.41* 1.33* 1.17* GLUCOSE 200* 149* 157* GFR Lab Results Component Value Date LABALBU 3.3 03/25/2020 LABALBU 4.4 02/19/2012 Nutrition Risk Level: Moderate Nutrient Needs: Estimated Daily Total Kcal: 5213-1283 Estimated Daily Protein (g): 55-65 Estimated Daily [...] Usual Body Wt: 159 lb (72.1 kg) Winifrede Body Wt: 100 lb (45.4 kg), % Winifrede Body 158% BMI Classification: BMI 30.0 - 34.9 Obese Class I Nutrition Interventions: Continue current diet Continued Inpatient Monitoring, Education Completed Nutrition Evaluation: Evaluation: Goals set Goals: >75% PO Monitoring: Meal Intake, Supplement Intake, Weight, Pertinent Labs, Chewing/Swallowing, Patient/Family Education, Constipation Contact Number: [phone] * Sonali Avitia, [facility] - 04/03/2020 8:11 AM EDT Piperacillin-Tazobactam Extended [...] Avitia04/03/20208:11 AM * Vernell Stephenson [facility] - 04/03/2020 7:29 AM EDT [facility] Department of Pharmacy Pharmacy Renal Adjustment [...] Stephenson,04/03/2020,7:29 AM * Vernell Stephenson [facility] - 04/03/2020 7:26 AM EDT [facility] Department of Pharmacy Pharmacy Renal Adjustment [...] Garcia RN - 04/03/2020 5:58 AM EDT Auditor Tax and 2 RNs came change's patient's bed linen, gown, and brief at this time. Corrine care was performed. Patient is suddenly a lot more pleasant, cooperative, and able to hold a conversation. Patient is now orientated to person, birthday and place. Patient states she does not know the month. Auditor Tax re orientated patient to month. Auditor Tax is going to attempt to regain IV access. Leads were also off and reapplied. * Vicki Garcia RN - 04/03/2020 5:40 AM EDT Graphics Specialist alerted gag writer that patient had removed her brief and pull out her IV at this time. * Vicki Garcia RN - 04/03/2020 2:45 AM EDT Patient refused being repositioned at this time. Don't touch me, patient stated. * Vicki Garcia RN - 04/03/2020 2:28 AM EDT Navigator completed to gag writer's best ability. Multiple items of the [...] to leave the room at this time. Auditor Tax will continue to monitor. * Vicki Garcia [...] Garcia RN - 04/03/2020 12:43 AM EDT Auditor Tax attempted to give verpamil, xanax and tylenol crushed in pudding at this time. Patient refused, patient smacked gag writer and swore at gag writer and with gag writer's final attempt after explaining it had pain medication in the pudding to help her feel better, patient smacked the spoon out of gag writer'antonio and onto the floor, stating it smells like shit and I dont want no pills. Auditor Tax was able to billposting supervisor patient to IV fluids however patient was mad at gag writer for doing so and swatted at gag writer. * Vicki Garcia RN - 04/03/2020 12:28 AM EDT Patient stated get the hell out of here and that myself and Valerie RN are a pain in the ass and need to get out. Auditor Tax is attempting to give medications at this time. * Vicki Garcia RN - 04/03/2020 12:10 AM EDT Heart monitor applied at this time by gag writer. While applying heart monitor tabs patient was verbally agressive stating leave me alone, stop touching me and will you go downstairs and stay down there!? * Alan Jalloh [facility] - 04/03/2020 12:10 AM EDT Pharmacy Note Renal Dose Adjustment Jesús Nolan is a 84 y.o. female. Pharmacist assessment of renally cleared medications. Recent Labs 04/02/20 1445 04/02/202004 BUN 37* 35* Recent Labs 04/02/20 1445 04/02/202004 CREATININE 1.41* 1.33* CrCl cannot be calculated (Unknown ideal weight.). Estimated CrCl using Winifrede Body Weight: 23.4 mL/min (based on IBW 45.5 kg) Height: Ht Readings from Last 1 Encounters: 03/23/20 5' (1.524 m) Weight: Wt Readings from Last 1 Encounters: 03/23/20 159 lb (72.1 kg) The following medication dose has been adjusted based upon renal function per P&T Guidelines: Unasyn 1.5 gm IV every 8 hours changed to 1.5 gm IV every 12 hours. Alan Jalloh [facility] 04/03/2020 12:10 AM * Vicki Garcia RN - 04/03/2020 12:03 AM EDT Patient is disorientated x4. Patient stated I do not have a name. Did not respond when asked whenpatient was born multiple times. Patient stated we're at [facility]'s house when replying to location and stated no what was the month. Patient unable to answer questions at this time due to disorientation. ER nurses states hasnot seen weeks and was unable to speak on her care. Patient is from [facility], gag writer will review the paperwork sent over by [facility]. Patient is resting with eyes closed at this time, patient is confused and opens eyes occasional when spoken to. * Alan Jalloh [facility] - 04/03/2020 12:03 AM EDT Pharmacy Note Renal Dose Adjustment Jesús Nolan is a 84 y.o. female. Pharmacist assessment of renally cleared medications. Recent Labs 04/02/20 1445 04/02/202004 BUN 37* 35* Recent Labs 04/02/20 1445 04/02/202004 CREATININE 1.41* 1.33* CrCl cannot be calculated (Unknown ideal weight.). Estimated CrCl using Winifrede Body Weight: 23.42 mL/min (based on IBW 45.5 kg) Height: Ht Readings from Last 1 Encounters: 03/23/20 5' (1.524 m) Weight: Wt Readings from Last 1 Encounters: 03/23/20 159 lb (72.1 kg) The following medication dose has been adjusted based upon renal function per P&T Guidelines: Enoxaparin 40 mg subcutaneously once daily changed to enoxaparin 30 mg subcutaneously once daily. Alan Jalloh [facility] 04/03/2020 12:03 AM * Vicki Garcia RN - 04/02/2020 11:20 PM EDT [facility] from ER via bed at this time. Patient was moved over to bed via flat sheet with 4 nurses. Patient unable to assist. documented in this encounter* Nirmala Lanier RN - 05/15/2020 3:50 PM EDT Report called to RN at [facility] in [place]. Facility will accept patient after 10pm when [facility] pick her up. * Constantin Escobedo MD - 05/15/2020 11:58 AM EDT Hospitalist Progress Note Patient: Jesús Nolan Unit/Bed:-19/019-A Date of : 1935 Acct: [id number] PCP: Justino Dhaliwal DO Date of Admission: [...] hypertension Hospital Course: Initial admission HPI by transformation consultant physician reviewed as below: 84-year-old female [...] [] Rehab [] Psych [] SNF [] Care Home Care Facility [] Other- Code Status: Full Code PT/OT Eval Status: * Katarina Pike, WATER ENGINEER - DITTO MACHINE OPERATOR - 05/15/2020 11:39 AM EDT Orthopaedic Progress [...] Chavez PTA - 05/14/2020 12:06 PM EDT [facility] INPATIENT PHYSICAL THERAPY DAILY NOTE [facility] ORTHOPEDICS 7K - 7K-19/019-A Time In: 1125 [...] Function: Lives With: Alone Type of Home: Facility([place] x6-7 months) ADL Assistance: Needs assistance(recently requiring assist with all at [facility]) Homemaking Assistance: (dependent on staff) Ambulation Assistance: Needs assistance Transfer Assistance: Needs assistance Additional Comments: Pt reports being a long time since she has walked, reports living at [place] x6-7 months, was starting to work on [...] with functional mobility. Functional Outcome Measures: Completed AM-[facility] Inpatient Mobility Raw Score : 8 AM-[facility] Inpatient T-Scale Score : 28.52 ASSESSMENT: [...] A x 2 for increased functional mobility. sailing officer goals Time Frame for sailing officer goals : NA due to short length of stay. Following session, patient left in safe position with all fall risk precautions in place. * Chele Lagos MD - 05/14/2020 9:42 AM EDT Physician Progress Note PATIENT: JESÚS NOLAN [facility] #: [id number] : 1935 ADMIT DATE: 05/10/2020 9:36 AM [...] you! Howard Darling, STEVON,RN, CRCR RN Clinical Calender Machine Operator Helper P: [phone] Options provided: -- Acute blood loss anemia [...] MD 05/14/2020 9:41 AM * Katarina Pike, WATER ENGINEER - DITTO MACHINE OPERATOR - 05/14/2020 8:35 AM EDT Orthopaedic Progress [...] Nolan Unit/Bed:7K-19/019-A Date of : 1935 Acct: [id number] PCP: Justino Dhaliwal DO Date of Admission: [...] medical management HPI: Initial admission HPI by transformation consultant physician reviewed as below: 84-year-old female [...] Please excuse my TYPOS! * Katarina Pike, WATER ENGINEER - DITTO MACHINE OPERATOR - 05/13/2020 11:30 AM EDT Orthopaedic Progress [...] Time does not include documentation. * Bettie Chavez, CTRS - 05/13/2020 9:29 AM EDT [facility] INPATIENT PHYSICAL THERAPY DAILY NOTE [facility] ORTH[facility] 7K - 7K-19/019-A Time In: 08 Time Out: 0909 Timed Code Treatment Minutes: [...] Function: Lives With: Alone Type of Home: Facility([place] x6-7 months) ADL Assistance: Needs assistance(recently requiring assist with all at [facility]) Homemaking Assistance: (dependent on staff) Ambulation Assistance: Needs assistance Transfer Assistance: Needs assistance Additional Comments: Pt reports being a long time since she has walked, reports living at [place] x6-7 months, was starting to work on [...] with functional mobility. Functional Outcome Measures: Completed -[facility] Inpatient Mobility without Stair Climbing Raw Score : 8 AM-[facility] Inpatient without Stair Climbing T-Scale Score [...] A x 2 for increased functional mobility. jail goals Time Frame for sailing officer goals : NA due to short length of stay. Following session, patient left in safe position with all fall risk precautions in place. * Saleem Gomes MD - 05/13/2020 8:25 AM EDT Hospitalist Progress Note Patient: Jesús Nolan Unit/Bed:7K-19/019-A Date of : 1935 Acct: [id number] PCP: Justino Dhaliwal DO Date of Admission: [...] reviewed in chart review snap shot in [facility] CC: Consult for medical management HPI: Initial admission HPI by transformation consultant physician reviewed as below: 84-year-old female [...] EDT Hospitalist Progress Note Patient: Jesús Nolan Unit/Bed:[address] [place] [address] Date of : 1935 Acct: [id number] PCP: Justino Dhaliwal DO Date of Admission: [...] reviewed in chart review snap shot in [facility] CC: Consult for medical management HPI: Initial admission HPI by transformation consultant physician reviewed as below: 84-year-old female [...] Tinajero, PT - 05/11/2020 2:37 PM EDT [facility] INPATIENT PHYSICAL THERAPY EVALUATION [facility] 7K - 7K-19/019-A Time In: 1325 [...] History: Lives With: Alone Type of Home: Facility([place] x6-7 months) ADL Assistance: Needs assistance(recently requiring assist with all at [facility]) Homemaking Assistance: (dependent on staff) Ambulation Assistance: Needs assistance Transfer Assistance: Needs assistance Additional Comments: Pt reports being a long time since she has walked, reports living at [place] x6-7 months, was starting to work on [...] with functional mobility. Functional Outcome Measures: Completed -[facility] Inpatient Mobility without Stair Climbing Raw Score : 6 AM-[facility] Inpatient without Stair Climbing T-Scale Score [...] A x 2 for increased functional mobility. jail goals Time Frame for sailing officer goals : NA due to short length of stay. Following session, patient left in safe position with all fall risk precautions in place. * Marcia Escalera OT - 05/11/2020 10:44 AM EDT [facility] INPATIENT OCCUPATIONAL THERAPY [facility] ORTH[facility]ED[facility] 7K EVALUATION Time: Time In: 958 [...] History: Lives With: Alone Type of Home: Facility([place] x6-7 months) ADL Assistance: Needs assistance(recently requiring assist with all at [facility]) Homemaking Assistance: (dependent on staff) Ambulation Assistance: Needs assistance Transfer Assistance: Needs assistance Additional Comments: Pt reports being a long time since she has walked, reports living at [place] x6-7 months, was starting to work on [...] Assistance, X 2. to recliner from Romario stedy FUNCTIONAL MOBILITY: Assistive Device: romario stedy Assist [...] next level of care and return to [facility]. Performance deficits / Impairments: Decreased functional [...] [facility] Date of : 1935 Acct: [id number] PCP: Justino Dhaliwal DO Date of Admission: [...] reviewed in chart review snap shot in [employer] CC: Consult for medical management HPI: Initial admission HPI by transformation consultant physician reviewed as below: 84-year-old female [...] meets criteria for discharge , transported to [address] [place] [address] upstairs waiting * Natali Tobias RN - 05/10/2020 10:43 AM EDT The patient arrived with a career services assistant. Patient in a wheelchair. Patient was transferred [...] Martínez DPM - 06/13/2020 10:45 AM EDT [facility] Progress Note and [...] MRR: ID consult ; all TELE Health Bill Wound/Ulcer Pain Timing/Severity: constant, mild [...] HIP performed by Chele Lagos MD at [facility] OR FAMILY HISTORY History reviewed. No pertinent [...] Z96.649 Decubitus ulcer of heel, left, unstageable ([facility]) L89.620 REC: excisional debridement / culture [...] (cm^3) 0.99 cm^3 05/30/20 1346 Wound Assessment Odem;Slough;Yellow 05/30/20 1346 Drainage Amount Moderate 05/30/20 1346 Drainage Description Serosanguinous 05/30/20 1318 Odor None 05/30/20 1318 Corrine-wound Assessment Clean;Dry;Intact 05/30/20 1318 Non-staged Wound Description Full thickness 05/30/20 1346 Odem%Wound Bed 50 05/30/20 1346 Yellow%Wound Bed 50 [...] Weight- Weight: 161 lb 8 oz (73.3 kg)([facility] weight) IBW- 115 # %IBW- 141 [...] Needs- BEE- 1162 kcal Total Calorie Needs- 9304-2607 (25-28 kcal/kg) Total Protein Needs- 78-94 (1.5-1.8 [...] States she eats too much. Staff from [facility] Pt is on a daily MVI w/minerals [...] IV (severe) (HCC) Procedures US RENAL COMPLETE IbDilan hernandez U, DO Reason Comments Fall C/o left hip pain st atus post /fall LOC Laceration posterior head from fall Reason Comments Leg Pain Fall at home prior t o arrival. Left leg and hip pain with shortening. Reason Comments Fatigue Generaliezed weaknes s, pain in joints. Sent from [facility] for decrease in activity level, inablility to stand Status Reason Specialty Diagnoses / Procedures Referre d By Contact Referred To Contact Diagnoses Cellulitis Ricco Sánchez MD [address] [place] [address], [place] [address] [facility] Status Reason Specialty Diagnoses / Procedures Re ferred By Contact Referred To Contact Diagnoses Periprosthetic fracture of femur following total replacement of hip Displaced intertrochanteric fracture of left femur, subsequent encounter for closed fracture with routine healing LEFT HIP PERIPROSTHETIC FEMUR FX WITH COMPLETE DISPLACEMENT Procedures VA REMOVAL SUPERFICIAL IMPLANT VA CONV PREV HIP SURG TO TOT HIP ARTHROPLAS HARDWARE REMOVAL LEFT HIP, CONVERSION TO LEFT TOTAL HIP Chele Lagos MD [address] [place] [address] [email or web address] Reason Comments Wound Check Bilateral heels Reason Comments Wound Check bilateral heels Reason Comments Wound Check bilateral heel/leg w ounds Reason Comments Wound Check left heel Reason Comments Wound Check Left heel Reason Comments Wound Check LEFT HEEL AND NOTE TELLER RIOR LOWER LEG Reason Comments Radio Gen A21 Specialty Diagnoses / Procedures Referred By Contac t Referred To Contact XR IMAGING Diagnoses Nephrolithiasis Procedures XR ABDOMEN 3V KUB W/OBLIQUES RADIOLOGIC EXAM ABDOMEN 3+ VIEWS Ricco Garland MD [address] [place] [address] [place] [address] Referral ID Status Reason Start Date Expiration Date V isits Requested Visits Authorized [id number] Closed Auto-Generate d Referral 10/27/2023 11/25/2024 1 1 Reason Comments Post-Op Visit Reason Comments Results Reason Comments Appointment Reason Comments Results INFORMATION SOURCE (unrecogn ized section and content) DATE CREATED AUTHOR 05/22/2020 [facility] DATE CREATED AUTHOR AUTHOR'S ORGANIZ ATION 08/29/2020 [facility] DATE CREATED AUTHOR AUTHOR'S ORGANIZ ATION 04/20/2021 [facility] DATE CREATED AUTHOR AUTHOR'S ORGANIZ ATION 10/15/2021 [facility] DATE CREATED AUTHOR AUTHOR'S ORGANIZ ATION 09/07/2023 [facility] DATE CREATED AUTHOR AUTHOR'S ORGANIZ ATION 09/14/2023 [facility] DATE CREATED AUTHOR AUTHOR'S ORGANIZ ATION 02/02/2024 [facility] DATE CREATED AUTHOR AUTHOR'S ORGANIZ ATION 02/25/2024 [facility] DATE CREATED AUTHOR AUTHOR'S ORGANIZ ATION 05/05/2024 [facility] DATE CREATED AUTHOR AUTHOR'S ORGANIZ ATION 06/18/2024 [facility] Care Teams (unrecognized sec tion and content) Team Status: Active Member Role Status Dates Brina Cordero MD Primary Care Provider Active Team Status: Active Member Role Status Dates Destiny Irwin MD Emergency Provider Active Brina Cordero MD Primary Care Provider Active Riky Bundy MD Admit Provider, Attending Martín foreman Active Soft Sugar Cutter Relationship Specialty Start Date End Date Brina Cordero MD [address] [place] [id number] PCP - General Family Medicine 09/09/23 Soft Sugar Cutter Relationship Specialty Start Date End Date Brina Cordero MD [address] [place] [place] [address] PCP - General Family Medicine 09/09/23 Soft Sugar Cutter Relationship Specialty Start Date End Date Brina Cordero MD [address] [place] [address] PCP - General Family Medicine 09/09/23 Soft Sugar Cutter Relationship Specialty Start Date End Date Brina Cordero MD [address] [place] [address] PCP - General Family Medicine 09/09/23 Soft Sugar Cutter Relationship Specialty Start Date End Date Brina Cordero MD [address] [place] [address] PCP - General Family Medicine 09/09/23 Soft Sugar Cutter Relationship Specialty Start Date End Date Brina Cordero MD [address] [place] [place] [address] PCP - General Family Medicine 09/09/23 Team [...] January 19, 2024 End: January 19, 2024 Soft Sugar Cutter Relationship Specialty Start Date End Date Brina Cordero MD [address] [place] [phone] PCP - General Family Medicine 09/09/23 Soft Sugar Cutter Relationship Specialty Start Date End Date Brina Cordero MD [address] [place] [address] PCP - General Family Medicine 09/09/23 Goals [...] or prosecute any alcohol or drug abuse patient.[facility] the event this information is protected by the Federal Confidentiality of Alcohol and Drug Abuse Patient Records regulations: The Federal rules restrict any use of the information to criminally investigate or prosecute any alcohol or drug abuse patient.[facility] Center[facility] the event this information is protected by the Federal Confidentiality of Alcohol and Drug Abuse Patient Records regulations: The Federal rules restrict any use of the information to criminally investigate or prosecute any alcohol or drug abuse patient.[facility] Center[facility] the event this information is protected by the Federal Confidentiality of Alcohol and Drug Abuse Patient Records regulations: The Federal rules restrict any use of the information to criminally investigate or prosecute any alcohol or drug abuse patient.[facility] Center[facility] the event this information is protected by the Federal Confidentiality of Alcohol and Drug Abuse Patient Records regulations: The Federal rules restrict any use of the information to criminally investigate or prosecute any alcohol or drug abuse patient.[facility] Center[facility] the event this information is protected by the Federal Confidentiality of Alcohol and Drug Abuse Patient Records regulations: The Federal rules restrict any use of the information to criminally investigate or prosecute any alcohol or drug abuse patient.[facility] Center[facility] the event this information is protected by the Federal Confidentiality of Alcohol and Drug Abuse Patient Records regulations: The Federal rules restrict any use of the information to criminally investigate or prosecute any alcohol or drug abuse patient.[facility] Center[facility] the event this information is protected by the Federal Confidentiality of Alcohol and Drug Abuse Patient Records regulations: The Federal rules restrict any use of the information to criminally investigate or prosecute any alcohol or drug abuse patient.[facility] CenterIn the event this information is protected by the [facility] Confidentiality of Alcohol and Drug Abuse Patient Records regulations: The Federal rules restrict any use of the information to criminally investigate or prosecute any alcohol or drug abuse patient.[facility] Center[facility] the event this information is protected by the Federal Confidentiality of Alcohol and Drug Abuse Patient Records regulations: The Federal rules restrict any use of the information to criminally investigate or prosecute any alcohol or drug abuse patient.[facility] FOR RECORDS PERTAINING TO PATIENTS [...] BE BASED ON THE PRIMARY CLINICAL RECORDS. [employer] [facility]. provides no warranty or guarantee of the accuracy or completeness of information in this document.
[2024-06-28 10:26] LABS: Basophils Percent Auto 0.2 % (0.2-2.0); Eosinophils Absolute Auto 0.2 10^3/uL (0.0-0.7); Hematocrit 39.4 % (36.0-48.0); Hemoglobin 12.6 g/dL (12.0-16.0); Immature Granulocytes Abs Auto 0.01 10^3/uL (0.00-0.03); Immature Granulocytes Pct Auto 0.2 % (0.0-0.5); Lymphocytes Absolute Auto 1.4 10^3/uL (1.2-3.8); Lymphocytes Percent Auto 26.5 % (20.5-60.0); Mean Corpuscular Hemoglobin 31.3 pg (26.7-34.0); Mean Corpuscular Volume 97.8 fL (81.0-99.0); Mean Platelet Volume 10.4 fL (9.5-13.5); Monocytes Absolute Auto 0.6 10^3/uL (0.3-0.8); Neutrophils Absolute Auto 3.2 10^3/uL (1.4-6.5); Neutrophils Percent Auto 59.1 % (43.0-75.0); Platelet Count 203 10^3/uL (150-450); Red Blood Count 4.03 10^6/uL (4.20-5.40); Red Cell Distribution Width 12.8 % (11.0-15.0); White Blood Count 5.4 10^3/uL (4.0-11.0)
[2024-06-28 10:27] LABS: Bilirubin Urine NEGATIVE (NEGATIVE); Blood Urine NEGATIVE (NEGATIVE); Clarity Urine CLEAR (CLEAR); Color Urine LT. YELLOW (YELLOW); Glucose Urine UA NEGATIVE (NEGATIVE); Ketones Urine NEGATIVE (NEGATIVE); Leukocyte Esterase Urine NEGATIVE (NEGATIVE); Nitrite Urine NEGATIVE (NEGATIVE); Protein Urine NEGATIVE (NEG/TRACE); Specific Gravity Urine 1.015 (1.005-1.025); Urobilinogen Urine 0.2 EU/dL (0.2-1.0)
[2024-06-28 10:29] LABS: Urine Microscopic Indicated NO
[2024-06-28 10:33] LABS: Creatinine Urine Random 17.32 mg/dL (20.00-300.00); Protein Creatinine Ratio Urine 0.35; Total Protein Urine Random <6.0 mg/dL (<=11.9)
[2024-06-28 12:40] LABS: Albumin Level 3.2 g/dL (3.4-5.0); Anion Gap 13.5; BUN Creatinine Ratio 16.1; Carbon Dioxide 28.3 mmol/L (21.0-32.0); Chloride 103 mmol/L (98-107); Estimated GFR (African America 31 (>=60 mL/min/1.73m^2); Estimated GFR (Non-African Ame 26 (>=60 mL/min/1.73m^2); Glucose 117 mg/dL (74-106); Magnesium 2.2 mg/dL (1.8-2.4); Phosphorus 3.7 mg/dL (2.6-4.7); Potassium 3.8 mmol/L (3.5-5.1); Sodium 141 mmol/L (136-145)
[2024-06-29 12:10] LABS: PTH, Intact 86 pg/mL (15-65)
[2024-06-30 10:28] LABS: Phosphorus 3.9 mg/dL (2.6-4.7)
== END 2024-09-26 23:59 | disposition home or self-care (01) ==
LOC: LAB 07:49
PROVIDERS: PCP Family Medicine; Visit Provider Specialist
DX: I12.9 Hypertensive chronic kidney disease with stage 1 through stage 4 chronic kidney disease, or unspecified chronic kidney disease (principal); N18.4 Chronic kidney disease, stage 4 (severe); N25.0 Renal osteodystrophy; E87.8 Other disorders of electrolyte and fluid balance, not elsewhere classified; E87.70 Fluid overload, unspecified
CPT/HCPCS: 36415; 80069; 81003; 82570; 83735; 83970; 84100; 84156; 84550; 85025

== ENCOUNTER 2024-06-29 08:57 | Outpatient (OUT) | payer MEDICARE, MEDICAID, SELFPAY ==
--- NOTE | 2024-06-29 | XR_ITS ---
The [address] [address] Patient Name: JESÚS GONSALES MRN: [id number] date: 1935 Sex: F Assigned Patient Location: Current Patient Location: [place] Accession/Order Number: [id number] Exam Date: 06/29/2024 10:00 Report Date: 06/29/2024 13:27 At the request of: NON-STAFF PHYSICIAN Procedure: XR abdomen min 2V EXAMINATION: XR abdomen min 2V HISTORY: Nephrolithiasis N20.0 COMPARISON: No relevant comparison available. FINDINGS: KIDNEY/URETER - RIGHT: No visible renal or ureteral calcifications. KIDNEY/URETER - LEFT: No visible renal or ureteral calcifications. PELVIS: No visible ureteral calcifications. Any visible calcifications favor phleboliths. BOWEL: No abnormal dilation or deviation. Moderate stool in the left colon BONES: No acute abnormality. 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 No abnormal gaseous collections. XR/XR abdomen min 2V IMPRESSION: No definite urinary tract calculi Electronically authenticated by: ROSENDO ALCALA Date: 06/29/2024 13:27
--- NOTE | 2024-06-29 09:01 | US_ITS ---
The [address] [address] Patient Name: JESÚS GONSALES MRN: [id number] date: 1935 Sex: F Assigned Patient Location: US Current Patient Location: [place] Accession/Order Number: [id number] Exam Date: 06/29/2024 09:02 Report Date: 06/29/2024 13:11 At the request of: NON-STAFF PHYSICIAN Procedure: US renal bladder EXAMINATION: US renal bladder HISTORY: Nephrolithiasis COMPARISON: No relevant comparison available. TECHNIQUE: Ultrasound examination was performed of the bladder. FINDINGS: Right Kidney: Normal in size, contour and cortical echotexture. The cortex measures 0.8 cm thick. No solid cortical mass, hydronephrosis or obstructing nephrolithiasis. Hyperechogenicity measuring 2 cm and lower pole with acoustic shadowing consistent with a large calcification. 1.7 cm area of anechoic echogenicity lower pole cortex, simple cortical cyst. Height: 3.88 cm Length: 9.72 cm Width: 3.59 cm Left Kidney: Poorly visualized grossly normal in size. 3.0 x 2.2 x 1.4 cm echogenic lesion in the cortex with acoustic shadowing consistent with a large calcification. No hydronephrosis Height: 4.27 cm Length: 8.38 cm Width: 4.81 cm Urinary bladder wall measures 3.7 mm. Post void volume 196 mL. Post void volume 27 mL Ureteral jets: Visualized bilaterally US/US renal bladder IMPRESSION: Large bilateral nephroliths, 2 cm in the right, 3 cm in the left Electronically authenticated by: ROSENDO ALCALA Date: 06/29/2024 13:11
== END 2024-06-29 08:58 | disposition home or self-care (01) ==
LOC: US 08:57
PROVIDERS: PCP Family Medicine
DX: N20.0 Calculus of kidney (principal)
CPT/HCPCS: 74019; 76770

== ENCOUNTER 2024-08-16 16:42 | Outpatient (REF) | payer MEDICARE, MEDICAID, SELFPAY ==
--- OUTSIDE RECORDS SUMMARY | 2024-08-16 16:58 | XMS_ITS | CCD ---
Author Organization [facility] Care Team Providers Care Exercise 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 Name Role Phone Justino Dhaliwal Primary Care Provider CHELE LAGOS Admitting Unavailable CHELE LAGOS Attending Unavailable YAZMIN, JUSTINO Boone Primary Care Unavailable PENNY DOWNEY Consulting Unavailable CONSTANTIN ESCOBEDO Consulting Unavailable Yazmin, Justino Boone Primary Care Provider Carlos Carlin Admitting Unavailable [...] JUSTINO Boone Primary Care Unavailable YAZMIN, JUSTINO F Referring Unavailable YAZMIN, JUSTINO Booen Primary Care Unavailable RATNASAMY, MANUEL Referring Unavailable YAZMIN, JUSTINO F Primary Care Unavailable RATNASAMY, MANUEL Referring Unavailable RATNASAMY, MANUEL Referring Unavailable YAZMIN, JUSTINO Boone Primary Care Unavailable IBOAYA, BENAHILI U Referring Unavailable YAZMIN, JUSTINO Boone Primary Care Unavailable YAZMIN, JUSTINO Boone Referring Unavailable YAZMIN, JUSTINO Boone Primary Care Unavailable YAZMIN, JUSTINO F Referring Unavailable YAZMIN, JUSTINO Boone Primary Care Unavailable Brina Cordero Unavailable MD Destiny Irwin Emergency Provider [phone] MD Brina Cordero Primary Care Provider MD Riky Bnudy Admit Provider MD Riky Bundy Attending Provider Brina Cordero Primary Care Unavailable Riky Bundy Admitting Unavailab Kishan Downs Attending Unavailable Justino Martinez Consulting Unavailable Unavailable Primary Care Provider UnavailHarsh Ireland Attending Unavailable Harsh CLAYTON Attending Unavailable Harsh CLAYTON Referring Unavailable Justino Martinez Attending Unavailable Justino Martinez Referring Unavailable Brina Cordero MD Primary Care Provider [phone] Brina Cordero MD Primary Care Provider [phone] FACUNDO, KODY Grayson Attending Unavailable BRINA CORDERO Referring Unavailable FACUNDO, KODY A Attending Unavailable FACUNDO, KODY A Attending Unavailable FACUNDO, KODY A Attending Unavailable FACUNDO, KODY A Attending Unavailable FACUNDO, KODY A Attending Unavailable BRINA CORDERO Referring Unavailable Al Shweiki, Luis Attending Unavailable Al Shweiki, Luis Referring Unavailable GARLAND, RICCO Referring Unavailable O'WILEY, MARK Attending Unavailable CORDERO, BRINA E Primary Care Unavailable GARLAND, RICCO Referring Unavailable CORDERO, BRINA E Primary Care Unavailable CORDERO, BRINA E Primary Care Unavailable GARLAND, RICCO Referring Unavailable GARLAND, RICCO Referring Unavailable CORDERO, BRINA E Primary Care Unavailable GARLAND, RICCO Attending Unavailable STEFANIE OCAMPO Referring Unavailable CORDERO, BRINA E Primary Care Unavailable CORDERO, BRINA E Primary Care Unavailable CORDERO, BRINA E Primary Care Unavailable GARLAND, RICCO Admitting Unavailable GARLAND, RICCO Attending Unavailable CORDERO, BRINA E Primary Care Unavailable CORDERO, BRINA E Primary Care Unavailable CORDERO, BRINA E Primary Care Unavailable GARLAND, RICCO Attending Unavailable O'WILEY, MARK Attending Unavailable O'WILEY, MARK Referring Unavailable CORDERO, BRINA E Primary Care Unavailable Allergies Allergy Classification Reported Allergen(s) Allergy Type Date of Onset Reaction(s) Facility (1 source) No Known Medication Allergies; Translations: [No Known Medication Allergies] Propensity to adverse reactions to drug (disorder) [facility] Medications Current Medications Medication Drug Class(es) Dates Sig (Normalized) Sig (Original) acetaminophen 500 mg oral tablet (20 sources) Start: 10-20-2023 take 2 tablets by mouth every six hours as needed acetaminophen (TYLENOL EXTRA STRENGTH) 500 mg tablet Take 2 tablets by mouth every 6 hours as needed for pain. 10/20/2023 Active Start: 08-31-2023 take 2 tablets by mo [facility] four times daily as needed for pain Acetaminophen 325 mg Tablet Active 650 MG PO Four times daily as needed for Pain August 31, 2023 12:00am Start: 08-31-2023 take 650 mg by mouth [...] tablet 650 mg take 1 capsule by [facility] every six hours Acetaminophen 500 MG 1 capsule as needed Orally every 6 hrs 650 MG Active take 2 tablets by [facility] every six hours as needed for pain acetaminophen (TYLENOL) 325 MG tablet Take 650 mg by mouth every 6 hours as needed for Pain 0 Active Comment on above: Take 2 tablets by mo [facility] every 6 hours as needed for pain. ALPRAZolam 0.25 mg oral tablet (20 sources) Benzodiazepine Start: 0 End: 0 take 0.25 mg by mouth once daily as needed for sleep 0.25 mg, Oral, NIGHTLY PRN, Sleep, Starting Wed05/10/20 at 2100 take 1 tablet by [facility] once daily as needed for sleep ALPRAZolam (XANAX) 0.25 MG tablet Take 0 .25 mg by mouth nightly as needed for Sleep. 0 Active ascorbic acid 500 mg oral tablet (20 sources) Vitamin C Start: 08-31-2023 take 1 tablet by mouth once daily Ascorbic Acid (Vitamin C) 500 mg Tablet Active 500 MG PO Daily August 31, 2023 12:00am take 1 tablet by mouth twice melva [...] / zinc oxide 17.4 mg oral tablet (3 sources) Vitamin C Start: 08-31-20 take 1 tablet by mouth at dinner Vitamins A,C,T-Updf-Xaqond (Preservision Areds) 2,148 mcg-113 mg-45 mg-17.4mg Tablet [...] ARE DS 2 - as directed Orally 140-11-50-1MG Active busPIRone hydrochloride 10 mg oral tablet (20 sources) Start: 08-31-20 take 1 tablet by mouth twice daily Buspirone 10 mg Tablet Active 10 MG PO Twice daily August 31, 2023 12:00am Start: 05-10-2020 take 5 mg by mouth twice daily 5 mg, Oral, 2 TIMES DAILY, First dose on Wed05/10/20 at 2100 calcitriol 0.94588 mg oral capsule (20 sources) Vitamin D3 Analog Start: 08-31-2023 take 1 capsule by mouth once daily Calcitriol 0.25 mcg Capsule Active 0.25 MCG PO Daily August 31, 2023 12:00am take 1 capsule by [facility] three times weekly Calcitriol 0.25 MCG 1 capsule Orally Thr ee times a Week Active take 1 capsule by [facility] three times weekly Calcitriol 0.25 MCG 1 capsule Orally Thr ee times a Week Active Comment on above: Take 0.25 mcg by [facility]. calcium acetate 667 mg oral tablet (20 sources) Start: 3 take 1 tablet by mouth twice daily at mealtime Calcium Acetate 667 mg Tablet Active 667 MG PO Twice daily with meals August 31, 2023 12:00am cephalexin 500 mg oral capsule (4 sources) Cephalosporin Antibacterial Start: 4 End: 4 take 1 capsule by mouth three times daily cephALEXin (KEFLEX) 500 mg capsule Take 1 capsule by mouth three times a day for 7 days. 21 capsule 07/28/2024 08/04/2024 Active Start: 09-03-2023 End: 01-19-2024 take 1 capsule by mouth twice daily Cephalexin 500 mg capsule Discontinued 500 MG PO Twice daily September 03, 2023 12:00am January 19, 2024 8:49am cyclobenzaprine hydrochloride 10 mg oral tablet (1 [...] Active diclofenac sodium 0.01 mg/mg topical gel (17 sources) Nonsteroidal Anti-inflammatory Drug Start: 09-04-2023 diclofenac (VOLTAREN) 1 % topical gel 09/04/2023 Active Voltaren 1 % as directed Externally Active Voltaren 1 % as directed Externally Active docusate sodium 100 mg oral capsule (20 sources) Start: 08-31-2023 take 1 capsule by mouth twice daily Docusate Sodium 100 mg Capsule Active 100 MG PO Twice daily August 31, 2023 12:00am Start: 05-11-2020 take 100 mg by mouth once quin y 100 mg, Oral, DAILY, First dose on 05/11/20 at 0900 Do not crush or break. Comment on above: Take 100 mg by mouth . doxepin 6 mg oral tablet (1 source) Tricyclic Antidepressant Start: take 1 tablet by mouth once daily at bedtime Doxepin 6 mg tablet Active 6 MG PO Daily at bedtime August 16, 2024 12:00am 0.4 ml enoxaparin sodium 100 mg/ml prefilled syringe (20 sources) Low Molecular Weight Heparin Start: 0 End: 0 enoxaparin (LOVENOX) 40 MG/0.4ML injection Inject 0.4 mLs into the skin daily 18 Syringe 0 05/10/2020 Active Start: 04-03-2020 enoxaparin (LO VENOX) injection 40 mg estradiol 0.1 mg/ml vaginal cream (12 sources) Estrogen Start: 09-07-2023 estradiol (ESTRACE) 0.01 % (0.1 mg/gram) vaginal cream Use 1 g vaginally one time a week. 42 g 1 09/07/2023 Active Comment on above: Use 1 g vaginally on e time a week. ferrous sulfate 325 mg oral tablet (20 sources) Start: 08-29-2023 take 1 tablet by mouth once daily Ferrous Sulfate 325 mg (65 mg iron) Tablet Active 325 MG PO Daily August 31, 2023 12:00am take 1 tablet by mouth once quin y Ferrous Sulfate 325 (65 Fe) MG 1 tablet Orally Once a day Active furosemide 20 mg oral tablet (20 sources) Loop Diuretic Start: 08-31-2023 take 1 tablet by mouth once daily Furosemide 20 mg Tablet Active 20 MG PO Daily August 31, 2023 12:00am Comment on above: Take 20 mg by mouth. High Potency Multivitamin - (13 sources) take 1 tablet by mouth once daily High Potency Multivitamin - 1 tablet Orally Once a day Active HIGH POTENCY MULTIVITAMIN 400 mcg (12 sources) Start: 08-19-2023 HIGH POTENCY MULTIVITAMIN 400 mcg 08/19/2023 Active Start: 08-19-2023 HIGH POTENCY M ULTIVITAMIN 400 mcg hydrALAZINE hydrochloride 25 mg oral tablet (20 sources) Arteriolar Vasodilator Start: 08-31-2023 take 1 tablet by mouth twice daily Hydralazine 25 mg Tablet Active 25 MG PO Twice daily August 31, 2023 12:00am take 1 tablet by [facility] every eight hours hydrALAZINE HCl 25 MG 1 tablet with food Orally Three times a day Active Comment on above: Take 25 mg by mouth. lactulose 667 mg/ml oral solution (20 sources) Osmotic Laxative Start: 09-04-2023 lactulose 10 gram/15 mL solution 09/04/2023 Active Start: 08-31-2023 End: 08-16-2024 take 1 mL by mouth once daily as needed for constipation Lactulose 10 gram/15 mL (15 mL) Solution Discontinued 10 ML PO Daily as needed for Constipation August 31, 2023 12:00am August 16, 2024 11:19am Start: 01-15-2023 take 10 mL by mouth [...] days 10 tablet 0 04/06/2020 04/16/2020 Active magnesium hydroxide 80 mg/ml oral suspension (1 source) Start: 05-10-2020 take 30 mL by mouth once daily as needed for constipation 30 mL, Oral, DAILY PRN, Constipation, Starting Wed05/10/20 at 1557 melatonin 10 mg disintegrating oral tablet (20 sources) Start: 09-04-2023 melatonin 10 mg ODT 09/04/2023 Active Start: 08-31-2023 End: 08-16-2024 take 1 tablet by mouth at bedtime Melatonin 1 mg Tablet Discontinued 1 MG PO Bedtime August 31, 2023 12:00am August 16, 2024 11:36am Start: 05-10-2020 take 5 mg by mouth [...] TAB PO Daily August 31, 2023 12:00am Multivitamin Tablet (1 source) Start: 08-31-2023 take 1 tablet by mouth once daily Multivitamin Tablet Active 1 TAB PO Daily August 31, 2023 12:00am Nutritional Supplements (BILL) PACK (20 sources) take 1 dose by mouth once Nutritional Supplements (BILL) PACK Take 1 each by mouth once 0 Active nystatin 585835 unt/ml topical cream (1 source) Polyene Antifungal Start: 03-16-2024 Nystatin 100,000 unit/gram cream Active 1 APPLIC TOPICAL Twice daily March 15, 2024 11:00pm 2 ml ondansetron 2 mg/ml injection (3 [...] IVPB extended infusion (mini-bag) polyethylene glycol 3350 88228 mg powder for oral solution (20 sources) Osmotic Laxative Start: 04-02-2020 Polyethylene Glycol 3350 (Miralax) 17 gram Powder In Packet Active 17 GM PO Daily as needed for Constipation August 31, 2023 12:00am Comment on above: Take 17 g by mouth. potassium chloride 20 meq extended release oral tablet (20 sources) Start: 08-31-2023 take 1 tablet by mouth once daily Potassium Chloride 20 mEq Tablet Extended Release Active 20 MEQ PO Daily August 31, [...] sources) HMG-CoA Reductase Inhibitor Start: 05-11-2020 take 1 tablet by mouth once daily Pravastatin 10 mg Tablet Active 10 MG PO Daily August 31, [...] Active tamsulosin hydrochloride 0.4 mg oral capsule (7 sources) alpha-Adrenergic Ellie Start: 10-20-19 tamsulosin (FLOMAX) 0.4 mg Take 1 capsule by mouth once daily. 30 minutes after the same meal each day. 30 capsule 10/20/2023 Active Comment on above: Take 1 capsule by [facility] once daily. 30 minutes after the same meal each day. verapamil hydrochloride 180 mg extended release oral tablet (20 sources) Calcium Channel Ellie Start: 04-03-20 take 1 tablet by mouth at bedtime Verapamil 180 mg Tablet Extended Release Active 180 MG PO Bedtime August 31, 2023 12:00am Comment on above: Take 180 mg by mouth . Completed/Discontinued Medications Medication Drug Class(es) Dates Sig (Normalized) Sig (Original) acetaminophen 325 mg / HYDROcodone bitartrate 5 mg oral tablet (20 sources) Opioid Agonist Start: 12-22-2023 End: 08-16-2024 take 1 tablet by mouth twice daily as needed for pain Hydrocodone-Acetami nophen 5-325 mg tablet Discontinued 1 TAB PO Twice daily as needed for pain 60 December 22, 2023 August 16, 2024 11:36am Start: 11-22-2023 End: 12-22-2023 take 1 tablet by mouth three times daily as needed for pain Hydrocodone-Acetaminophen 5-325 mg table t Discontinued 1 TAB PO Three times daily as needed for pain 90 November 25, 2023 December 22, 2023 1:24pm Start: 10-15-2023 HYDROcodone-Ac etaminophen 10-325 MG 1 tablet six times per day Orally prn for 30 days Sep, Active Start: 08-31-2023 End: 11-22-2023 take 1 tablet by mouth every six hours as needed for pain Hydrocodone-Acetaminophen 10-325 mg Tabl et Discontinued 1 TAB PO Q6H as needed for Pain 10 September 03, 2023 November 22, 2023 4:35pm Start: 2023 HYDROcodone-Ac etaminophen (NORCO) 10-325 mg per tablet 2023 Active Start: 07-21-2023 take 1 tablet by [facility] [...] pain 6-10 every 4 hours 0 Active amoxicillin 500 mg oral tablet (2 sources) Penicillin-class Antibacterial Start: 01-19-2024 End: 08-16-2024 take 1 tablet by mouth three times daily Amoxicillin 500 mg tablet Discontinued 500 MG PO Three times daily January 18, 2024 11:00pm August 16, 2024 11:17am ampicillin-sulbacta m (UNASYN) 1.5 g IVPB minibag [...] Last dose on Wed05/11/20 at 0500 ciprofloxacin 250 mg oral tablet (13 sources) Quinolone Antimicrobial Start: 05-30-2024 End: 08-16-2024 take 1 tablet by mouth once daily Ciprofloxacin Hcl 250 mg tablet Discontinued 250 MG PO Daily May 29, 2024 11:00pm August 16, 2024 11:18am Start: 01-06-2024 End: 01-19-2024 take 1 tablet by mouth once daily Ciprofloxacin Hcl 250 mg tablet Discontinued 250 MG PO Daily January 05, 2024 11:00pm January 19, 2024 8:49am Start: 01-04-2024 End: 01-19-2024 Ciprofloxacin Hcl 0.3 % drop s Discontinued 0 OPHTHALMIC .COMPLEX January 03, 2024 11:00pm January 19, 2024 8:49am put 1-2 drps in affected eye(s) every [...] 02-09-2020 fentaNYL (SUBLIMAZE) injecti on 25 mcg fluticasone propionate 0.05 mg/actuat metered dose nasal spray (2 sources) Corticosteroid Start: 01-19-2024 End: 08-16-2024 take 1 spray(s) nasal route once daily Fluticasone Propionate 50 mcg/actuation spray,suspension Discontinued 2 SPRAY INTRANASAL Daily January 18, 2024 11:00pm August 16, 2024 11:18am administer into each nostril hydroCHLOROthiazide 25 mg oral tablet (11 sources) [...] not administer for more than 5 days. LORazepam 0.5 mg oral tablet (20 sources) Benzodiazepine Start: 08-31-2023 End: 09-03-2023 take 1 tablet by mouth once daily as needed for anxiety Lorazepam 0.5 mg Tablet Discontinued 0.5 MG PO Daily as needed for Anxiety August 31, 2023 12:00am September 03, 2023 11:08am Start: 08-31-2023 End: 09-03-2023 take 2 tablets by mouth three times daily Lorazepam 0.5 mg Tablet Discontinued 1 MG PO Three times daily August 31, 2023 12:00am September 03, 2023 11:07am Start: 08-31-2023 End: 09-03-2023 take 1 mg by mouth three times daily Lorazepam Discontinued 1 MG PO Three times daily August 31, 2023 1:00am September 03, 2023 12:07pm Start: 08-30-2023 End: 08-07-2024 take 1 tablet by mouth three times daily Lorazepam 0.5 mg tablet Discontinued 0.5 MG PO Three times daily November 11, 2023 1:16pm December 15, 2023 11:52am Start: 07-05-2023 take 1-2 tablets by mouth [...] by mouth every 6 hours as needed. Active take 1 tablet by hailey th every eight hours LORazepam (ATIVAN) 0.5 MG tablet Take 0.5 mg by mouth every 8 hours. 0 Active Comment on above: Take 0.5 mg by mouth every 6 hours as needed. meclizine hydrochloride 25 mg oral tablet (11 sources) Antiemetic End: 04-06-20 take 1 tablet by mouth three times daily as needed meclizine (ANTIVERT) 25 MG tablet Take 25 mg by mouth 3 times daily as needed 0 04/06/2020 Discontinued (Stop Taking at Discharge) meloxicam 7.5 mg oral tablet (11 sources) Nonsteroidal Anti-inflammatory Drug End: 04-06-20 take 1 tablet by mouth once daily meloxicam (MOBIC) 7.5 MG tablet Take 7.5 mg by mouth daily 0 04/06/2020 Discontinued (Stop Taking at Discharge) 1 ml morphine sulfate 2 mg/ml injection (7 sources) Opioid Agonist Start: 05-10-20 End: 05-10-20 morphine 2 MG/ML injection Start: 05-10-2020 End: [...] mg / trimethoprim 160 mg oral tablet (13 sources) Dihydrofolate Reductase Inhibitor Antibacterial, Sulfonamide Antimicrobial Start: 08-31-2023 End: 09-03-2023 take 1 tablet by mouth twice daily Sulfamethoxazole-Trimethoprim (Bactrim Ds) 800-160 mg Tablet Discontinued 1 TAB PO Twice daily August 31, 2023 12:00am September 03, 2023 11:08am traMADol hydrochloride 50 mg oral tablet (1 [...] te Episodic/Chronic Acute and unspecified renal failure (7 sources) Acute renal failure syndrome; Translations: [Acute kidney failure, unspecified] Onset: 3 09-01-2023 Episodic Comment on above: Problem List clean-u p per request of Phys. 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 EHR Cmte Chronic ulcer of skin (20 sources) Pressure [...] dementia, and amnestic and other cognitive disorders (5 sources) Dementia; Translations: [Unspecified dementia without behavioral disturbance] Onset: 3 09-01-2023 Chronic Comment on above: Problem List clean-u p per request of Phys. EHR Cmte Essential hypertension (19 sources) Hypertensive disorder; Translations: [Essential (primary) hypertension] Onset: 3 09-01-2023 Chronic Comment on above: Problem List clean-u p per request of Phys. EHR Cmte Fracture of neck of femur (hip) (1 source) Closed intertrochanteric fracture; Translations: [Closed displaced intertrochanteric fracture of left femur, initial encounter ([facility])] Episodic Genitourinary symptoms and ill-defined conditions (20 sources) Urinary tract obstruction; Translations: [Obstructive and reflux uropathy, unspecified] Onset: 3 09-07-2023 Episodic Malaise and fatigue (20 sources) Asthenia; Translations: [Malaise] Onset: 0 04-02-2020 Episodic Osteoarthritis (13 sources) Arthritis; Translations: [Unspecified osteoarthritis, unspecified site] [...] anterior, left] Episodic Other connective tissue disease (2 sources) Neuropathic pain; Translations: [Neuralgia and neuritis, unspecified] 12-22-2023 Episodic Other diseases of kidney and ureters (1 source) Hydronephrosis with renal and ureteral calculous obstruction; Translations: [Hydronephrosis] 09-08-2023 Episodic Other diseases of kidney and ureters (1 source) Hydronephrosis; Translations: [Unspecified hydronephrosis] 12-07-2023 Episodic Other diseases of kidney and ureters (1 source) Cyst of kidney; Translations: [Cyst of kidney, acquired] 07-28-2024 Episodic Other diseases of kidney and ureters (1 source) Cyst of kidney, acquired; Translations: [Renal cyst] Onset: 4 Episodic Other ear and sense [...] [Slow transit constipation] Episodic Other gastrointestinal disorders (15 sources) Constipation; Translations: [Constipation, unspecified] Onset: 3 09-01-2023 Episodic Comment on above: Problem List clean-u p per request of Phys. EHR Cmte Other nervous system disorders (8 sources) Metabolic encephalopathy; Translations: [Metabolic encephalopathy] 09-01-2023 Chronic Comment on above: Problem List clean-u p per request of Phys. EHR Cmte Other nervous system disorders (4 sources) Metabolic encephalopathy; Translations: [Metabolic encephalopathy] Onset: 3 08-31-2023 Chronic Other non-traumatic joint disorders (1 source) Pain of left hip joint; Translations: [Pain of left hip joint] Other screening for suspected conditions (not mental disorders or infectious disease) (2 sources) Patient encounter status; Translations: [Encounter for screening for other disorder] 12-06-2023 Episodic Other upper respiratory infections (1 source) Acute maxillary sinusitis; Translations: [Acute maxillary sinusitis, unspecified] 01-19-2024 Episodic Otitis media and related conditions (1 source) Disorder of left Eustachian tube; Translations: [Unspecified Eustachian tube disorder, left ear] 01-19-2024 Episodic Residual codes; unclassified (13 sources) Hallucinations; Translations: [Hallucinations, unspecified] Onset: 3 08-31-2023 Episodic Comment on above: Problem List clean-u p per request of Phys. EHR Cmte Residual codes; unclassified (2 sources) Hallucinations, unspecified; Translations: [Hallucinations] Onset: 3 08-31-2023 Episodic Residual codes; unclassified (1 source) Disorientation, unspecified; Translations: [Disorientation, unspecified] Onset: Episodic Residual codes; unclassified (12 sources) Delirium; Translations: [Disorientation, unspecified] Onset: 4 10-21-2023 Episodic Comment on above: Problem List clean-u p per request of Phys. EHR Cmte Residual codes; unclassified (1 source) Insomnia; Translations: [Insomnia, unspecified] 08-16-2024 Episodic Residual codes; unclassified (1 source) Insomnia, unspecified; Translations: [Insomnia, unspecified] 08-16-2024 Episodic Retinal detachments; defects; vascular occlusion; and retinopathy (20 sources) Degenerative disorder of macula ; Translations: [Unspecified macular degeneration] Onset: 4 Chronic Skin and subcutaneous tissue infections (20 sources) Cellulitis of right upper limb; Translations: [Cellulitis of right upper limb] Onset: 0 04-03-2020 Urinary tract infections (20 sources) Bacterial urinary infection; Translations: [Bacteriuria] Onset: 0 04-03-2020 Episodic Comment on above: Problem List clean-u p per request of Phys. 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, initial encounter] Onset: 05-10-2020 05-10-2020 Episodic Other gastrointestinal disorders (3 sources) Constipation, unspecified; Translations: [Constipation, unspecified] Onset: 09-01-2023 08-31-2023 Episodic Residual codes; unclassified (12 sources) History of operative procedure on hip; Translations: [Other specified postprocedural states] Onset: 09-07-2023 09-07-2023 Episodic Residual codes; unclassified (1 source) Other specified postprocedural states; Translations: [Status post hip surgery] Onset: 09-07-2023 Episodic Skin and subcutaneous tissue infections (2 sources) Cellulitis of right upper limb; Translations: [Cellulitis of right upper limb] Onset: 04-02-2020 04-03-2020 Episodic Results Test Name Value Interpretation Reference Range Facility [facility] 07-28-2024 CNOV Office Visit (UROLMN ) JESÚS NOLAN ([id number]) 1935 F Date Time Provider Department 07/28/24 3:00 PM MARK CESAR UROLUCIANA During your visit today, we recorded the following information about you: Mark Cesar PA-C 08/02/2024 7:03 PM Signed UROLOGY NOTE Chief complaint: kidney stones Jesús Nolan is a 88 year old female who presents today for kidney stone management and prevention counseling. Interval hx December 06, 2023 s/p L miniPCNL w/ Dr. Garland on 10/18/23. CaP, struvite. She completed US and KUB today, the former showing mild/moderate left hydro despite no apparent stone (staghorn stone no longer visualized). She denies any pain on that side. [facility]olink 24-hour urine collection was sent off three days ago, so results not yet available. - Reviewed US and KUB showing no further L renal stones but noted hydronephrosis - Consider CT scan for further assessment of stone fragment vs stricture; will reach out to Dr. Garland to confirm - Litholink sent off, and we can review results in a couple weeks. - Plan for eventual US and KUB in about 6 months for reassessment Interval hx July 28, 2024 Patient returns to clinic having completed new US and KUB showing seemingly small stones bilaterally, especially when assessing CT scan earlier this year. Daughter does voice concern about possible beginning UTI due to seeming hallucination recently, which has been a previous sign. There is no height or weight on [...] HYDROcodone-Acetaminop hen (NORCO) 10-325 mg per tablet lactulose 10 gram/15 mL solution HIGH POTENCY MULTIVITAMIN 400 mcg estradiol (ESTRACE) 0.01 % (0.1 mg/gram) vaginal cream Use 1 g vaginally one time a week. tamsulosin (FLOMAX) 0.4 mg Take 1 capsule by mouth once daily. 30 minutes after the same meal each day. No current facility-administered medications on file prior to visit. ALLERGIES No Known Allergies Results Only on 12/03/2023 Component Date Value Ref Range Status CYSTINE, URINE, QUALITATIVE 12/03/2023 Neg Negative Final URINE VOLUME (PRESERVED) 12/03/2023 1,050 500 - 4,000 mL/24 hr Final CALCIUM OXALATE SATURATION 12/03/2023 10.39 (H) 6.00 - 10.00 Final CALCIUM, URINE 12/03/2023 100 <200 mg/24 hr Final OXALATE, URINE 12/03/2023 39 20 - 40 mg/24 hr Final CITRATE, URINE 12/03/2023 109 (L) >550 mg/24 hr Final CALCIUM PHOSPHATE SATURATION 12/03/2023 0.72 0.50 - 2.00 Final PH, 24 HR, URINE 12/03/2023 5.978 5.800 - 6.200 Final URIC ACID SATURATION 12/03/2023 0.57 <1.00 Final URIC ACID, URINE 12/03/2023 285 <750 mg/24 hr Final SODIUM, URINE 12/03/2023 77 50 - 150 mmol/24 hr Final POTASSIUM, URINE 12/03/2023 56 20 - 100 mmol/24 hr Final MAGNESIUM, URINE 12/03/2023 80 30 - 120 mg/24 hr Final PHOSPHORUS, URINE 12/03/2023 489 (L) 600 - 1,200 mg/24 hr Final AMMONIUM, URINE 12/03/2023 12 (L) 15 - 60 mmol/24 hr Final CHLORIDE, URINE 12/03/2023 82 70 - 250 mmol/24 hr Final SULFATE, URINE 12/03/2023 23 20 - 80 meq/24 hr Final UREA NITROGEN, URINE 12/03/2023 7.16 6.00 - 14.00 g/24 hr Final PROTEIN CATABOLIC RATE 12/03/2023 0.9 0.8 - 1.4 g/kg/24 hr Final CREATININE, URINE 12/03/2023 747 Not Applic. mg/24 hr Final CREATININE/KG BODY WEIGHT 12/03/2023 12.5 8.7 - 20.3 mg/24 hr/kg Final CALCIUM/KG BODY WEIGHT 12/03/2023 1.7 <4.0 mg/24 hr/kg Final CALCIUM/CREATININE RATIO 12/03/2023 134 51 - 262 mg/g creat Final COMMENT 12/03/2023 Note Final Images: US and KUB 06/29/24 (external) reviewed. CT 01/28/24 (external): Assessment/Plan: Encou (more content not included)... Normal [facility] URINALYSIS, REFLEX MICROSCOP ICon 07-28-2024 Bilirubin Ql (U) Negative Negative [facility] Clarity (Unsp spec) Clear Clear [facility] Color (U) Yellow Yellow [facility] Glucose Test strip (U) [Mass/Vol] Negative Negative [facility] Hemoglobin Ql (U) Negative Negative [facility] Interpretation and review of laboratory results Normal [facility] Ketones Ql (U) Negative Negative [facility] Leukocyte esterase Test strip Ql (U) Negative Negative [facility] Nitrite Ql (U) Negative Negative [facility] pH (U) 6.5 [pH] NINF - 8.5 [facility] Protein (U) [Mass/Vol] Negative Negative [facility] Specific gravity (U) [Rel density] 1.010 1.005 - 1.030 [facility] Urobilinogen Ql (U) 0.2 EU/dL 0.2-1.0 EU/dL [facility] Bilirubin Ql (U) Negative Normal Negative [facility] Comment on above: Order Comment: Speci men Type: URINE SPECIMENOrdering Facility: [facility] Address: [address] [place] [address] Performed By: #### L [id number] ####[facility] LABCLIA [id number] [place] [address] [place] Clarity (Unsp spec) Clear Normal Clear [facility] Comment on above: Order Comment: Speci men Type: URINE SPECIMENOrdering Facility: [facility] Address: [address] [place] [address] Performed By: #### L [id number] ####[facility] LABCLIA [id number] [place] [address] [place] Color (U) Yellow Normal Yellow [facility] Comment on above: Order Comment: Speci men Type: URINE SPECIMENOrdering Facility: [facility] Address: [address] [place] [address] Performed By: #### L [id number] ####[facility] LABCLIA [id number] [place] [address] [place] Glucose Test strip (U) [Mass/Vol] Negative Normal Negative [facility] Comment on above: Order Comment: Speci men Type: URINE SPECIMENOrdering Facility: [facility] Address: [address] [place] [address] Performed By: #### L [id number] ####[facility] LABCLIA [id number] [place] [address] [place] Hemoglobin Ql (U) Negative Normal Negative [facility] Comment on above: Order Comment: Speci men Type: URINE SPECIMENOrdering Facility: [facility] Address: [address] [place] [address] Performed By: #### L [id number] ####[facility] LABCLIA [id number] [place] [address] [place] Ketones Ql (U) Negative Normal Negative [facility] Comment on above: Order Comment: Speci men Type: URINE SPECIMENOrdering Facility: [facility] Address: [facility] [place] [address] Performed By: #### L [id number] ####[facility] LABCLIA [id number] [place] [address] [place] Leukocyte esterase Test strip Ql (U) Negative Normal Negative [facility] Comment on above: Order Comment: Speci men Type: URINE SPECIMENOrdering Facility: [facility] Address: [address] [place] [address] Performed By: #### L [id number] ####[facility] LABCLIA [id number] [place] [address] [place] Nitrite Ql (U) Negative Normal Negative [facility] Comment on above: Order Comment: Speci men Type: URINE SPECIMENOrdering Facility: [facility] Address: [address] [place] [address] Performed By: #### L [id number] ####[facility] LABCLIA [id number] [place] [address] [place] pH (U) 6.5 [pH] Normal <8.5 [facility] Comment on above: Order Comment: Speci men Type: URINE SPECIMENOrdering Facility: [facility] Address: [address] [place] [address] Performed By: #### L [id number] ####[facility] LABCLIA [id number] [place] [address] [place] Protein (U) [Mass/Vol] Negative Normal Negative [facility] Comment on above: Order Comment: Speci men Type: URINE SPECIMENOrdering Facility: [facility] Address: [address] [place] [address] Performed By: #### L [id number] ####[facility] LABCLIA [id number] [address] [place] Specific gravity (U) [Rel density] 1.010 Normal 1.005-1.030 [facility] Comment on above: Order Comment: Speci men Type: URINE SPECIMENOrdering Facility: [facility] Address: [address] [place] [address] Performed By: #### L [id number] ####[facility] LABCLIA [id number] [place] [address] [place] Urobilinogen Ql (U) 0.2 EU/dL Normal 0.2-1.0 EU/dL [facility] Comment on above: Order Comment: Speci men Type: URINE SPECIMENOrdering Facility: [facility] Address: [address] [place] [address] Performed By: #### L [id number] ####[facility] LABCLIA [id number] [place] [address] [place] Basophils Auto (Bld) [#/Vol] on 06-28-2024 Basophils (Bld) [#/Vol] Automated basoph il count 0.0-0.1 [facility] Basophils/100 WBC Auto (Bld) on 06-28-2024 Basophils/100 WBC (Bld) Automated basophil % 0. 2-2.0 [facility] Eosinophils/100 WBC Auto (Bl d)on 06-28-2024 Eosinophils/100 WBC (Bld) Automated eosinophil % 0.9-7.0 [facility] Erythrocyte distribution wid th Auto (RBC) [Ratio]on 06-28-2024 Erythrocyte distribution width (RBC) [Ratio] Erythrocyte distribution width [Ratio] by Automated count 11.0-15.0 [facility] Estimated glomerular filtrat ion rate (GFR) non- Americanon 06-28-2024 GFR/1.73 sq M.predicted among non-blacks MDRD (S/P/Bld) [Vol rate/Area] Estimated glomerular filtration rate (GFR) non- Low >=60 mL/min/1.73 m 2 [facility] Hematocrit Auto (Bld) [Volum e fraction]on 06-28-2024 Hematocrit (Bld) [Volume fraction] Hematocrit [Volume Fraction] of Blood by Automated count 36.0-48.0 [facility] Hemoglobin [Mass/volume] in Bloodon 06-28-2024 Hemoglobin (Bld) [Mass/Vol] Hemoglobin [Mass/volume] in Blood 12.0-16.0 [facility] Laboratory - Chemistry and C hemistry - challengeon 06-28-2024 Albumin [Mass/Vol] 3.2 g/dL Low 3.4-5.0 [facility] Calcium [Mass/Vol] 9.0 mg/dL 8.5-10.1 [facility] Chloride [Moles/Vol] 103 mmol/L 98-107 [facility] CO2 [Moles/Vol] 28.3 mmol/L 21.0-32.0 [facility] Creatinine [Mass/Vol] 1.86 mg/dL High 0.55-1.02 [facility] GFR/1.73 sq M.predicted MDRD (S/P/Bld) [Vol rate/Area] 31 mL/min/{1.73_m2} Low >=60 mL/min/1.73 m 2 [facility] Glucose [Mass/Vol] 117 mg/dL High 74-106 [facility] Magnesium [Mass/Vol] 2.2 mg/dL 1.8-2.4 [facility] Potassium [Moles/Vol] 3.8 mmol/L 3.5-5.1 [facility] Sodium [Moles/Vol] 141 mmol/L 136-145 [facility] Urate [Mass/Vol] 6.0 mg/dL 2.6-6.0 [facility] Urea nitrogen [Mass/Vol] 30.0 mg/dL High 7.0-18.0 [facility] Urea nitrogen/Creatinine [Mass ratio] 16.1 mg/mg [facility] Laboratory - Hematology and Cell countson 06-28-2024 Immature granulocytes/100 WBC (Bld) 0.2 % 0.0-0.5 [facility] Leukocytes [#/volume] correc tavia for nucleated erythrocytes in Blood by Automated counon 06-28-2024 WBC corrected for nucl RBC Auto (Bld) [#/Vol] Leukocytes [#/volume] corrected for nucleated erythrocytes in Blood by Automated coun 4.0-11.0 [facility] Lymphocytes Auto (Bld) [#/Vo l]on 06-28-2024 Lymphocytes (Bld) [#/Vol] Lymphocytes [#/volume] in Blood by Automated count 1.2-3.8 [facility] Lymphocytes/100 WBC Auto (Bl d)on 06-28-2024 Lymphocytes/100 WBC (Bld) Lymphocytes/100 leukocytes in Blood by Automated count 20.5-60.0 [facility] MCH Auto (RBC) [Entitic mass ]on 06-28-2024 MCH (RBC) [Entitic mass] MCH [Entitic ma ss] by Automated count 26.7-34.0 [facility] MCHC Auto (RBC) [Mass/Vol]on 06-28-2024 MCHC (RBC) [Mass/Vol] MCHC [Mass/volume] by Automated count 29.9-35.2 [facility] MCV Auto (RBC) [Entitic vol] on 06-28-2024 MCV (RBC) [Entitic vol] MCV [Entitic vol ume] by Automated count 81.0-99.0 [facility] Monocytes Auto (Bld) [#/Vol] on 06-28-2024 Monocytes (Bld) [#/Vol] Automated blood monocyte count 0.3-0.8 [facility] Monocytes/100 WBC Auto (Bld) on 06-28-2024 Monocytes/100 WBC (Bld) Automated monocyte % 1. 7-12.0 [facility] Neutrophils Auto (Bld) [#/Vo l]on 06-28-2024 Neutrophils (Bld) [#/Vol] Neutrophils [#/volume] in Blood by Automated count 1.4-6.5 [facility] Neutrophils/100 WBC Auto (Bl d)on 06-28-2024 Neutrophils/100 WBC (Bld) Automated neutrophil % 43.0-75.0 [facility] No Panel Informationon 06-28 Eosinophils # (Auto) 0.2 10 3/uL 0.0-0.7 [facility] Immature Granulocyte # (Auto) 0.01 10 3/uL 0.00-0.03 [facility] Parathyroid Hormone (Intact) 86 pg/mL Abnormal 15-65 [facility] Comment on above: Performed at: [address] [id number] Director: Sriram Knapp PhD, Phone: [phone] Phosphorus Level 3.9 mg/dL 2.6-4.7 [facility] Platelet mean volume Auto (B ld) [Entitic vol]on 06-28-2024 Platelet mean volume (Bld) [Entitic vol] Platelet mean volume [Entitic volume] in Blood by Automated count 9.5-13.5 [facility] Platelets Auto (Bld) [#/Vol] on 06-28-2024 Platelets (Bld) [#/Vol] Platelets [#/vol ume] in Blood by Automated count 150-450 [facility] RBC Auto (Bld) [#/Vol]on RBC (Bld) [#/Vol] Erythrocytes [#/volume] in Blood by Automated count Low 4.20-5.40 [facility] Serum or plasma anion gap de terminationon 06-28-2024 Anion gap [Moles/Vol] Serum or plasma an ion gap determination [facility] Laboratory - Chemistry and C hemistry - challengeon 06-27-2024 Bilirubin Ql (U) Negative NEGATIVE [facility] Glucose (U) [Mass/Vol] [facility] Ketones Ql (U) Negative NEGATIVE [facility] pH (U) 6.0 [pH] 5.0-9.0 [facility] Specific gravity (U) [Rel density] 1.015 1.005-1.025 [facility] Urobilinogen Qn (U) 0.2 {Gerard'U}/dL 0.2-1.0 [facility] Laboratory - Specimen inform ationon 06-27-2024 Appearance (U) CLEAR CLEAR [facility] Color (U) LT. YELLOW YELLOW [facility] Laboratory - Urinalysison Leukocyte esterase Test strip Ql (U) Negative NEGATIVE [facility] Nitrite Ql (U) Negative NEGATIVE [facility] Protein Ql (U) Negative NEG/TRACE [facility] No Panel Informationon 06-27 Urine Microscopic Review NO [facility] Urine Occult Blood Negative NEGATIVE [facility] Urine Random Creatinine 17.32 mg/dL Low 20.0 0-300.0 0 [facility] Urine Random Total Protein <6.0 mg/dL <=11.9 [facility] Urine protein/creatinine rat ioon 06-27-2024 Protein/Creatinine (U) [Ratio] Urine protein/creatinine ratio [facility] Laboratory - Microbiology an d Antimicrobial susceptibilityon 05-22-2024 Bacteria identified Cx Nom (U) [facility] No Panel Informationon 05-22 Miscellaneous Test Comment See comment [facility] Comment on above: Specimen Source: UCC - Urine,Clean Catch - Urine CC - 200.100 CNPNon 02-17-2024 CNPN Telephone (UROLMN) JESÚS NOLAN ([id number]) 1935 F Date Time Provider Department 02/17/24 [...] with US/KUB in 6 months. No answer, M with phone number to return call to [...] Encounter Status:Closed by MONI CHAUDHARI [facility] OV[facility]S ([id number]) 1935 F Date Time Provider Department 01/31/24 MARK CESAR URFMOB During your visit today, [...] Encounter Status:Closed by YULY HERNANDEZ on 02/01/24 [facility] Basophils Auto (Bld) [#/Vol] on 01-10-2024 Basophils (Bld) [#/Vol] 0.0 10 3/uL 0.0-0.1 [facility] Basophils/100 WBC Auto (Bld) on 01-10-2024 Basophils/100 WBC (Bld) 0.1 % 0.2-2.0 [facility] Eosinophils/100 WBC Auto (Bl d)on 01-10-2024 Eosinophils/100 [...] challengeon 01-10-2024 Albumin [Mass/Vol] 2.5 g/dL 3.4-5.0 [facility] Calcium [Mass/Vol] 8.9 mg/dL 8.5-10.1 [facility] Chloride [Moles/Vol] 104 mmol/L 98-107 [facility] CO2 [Moles/Vol] 27.0 mmol/L 21.0-32.0 [facility] Creatinine [Mass/Vol] 2.22 mg/dL 0.55-1.02 [facility] GFR/1.73 sq M.predicted MDRD (S/P/Bld) [Vol rate/Area] 25 mL/min/{1.73_m2} >=60 [facility] Glucose [Mass/Vol] 125 mg/dL 74-106 [facility] Magnesium [Mass/Vol] 2.1 mg/dL 1.8-2.4 [facility] Potassium [Moles/Vol] 3.8 mmol/L 3.5-5.1 [facility] Sodium [Moles/Vol] 142 mmol/L 136-145 [facility] Urate [Mass/Vol] 6.7 mg/dL 2.6-6.0 [facility] Urea nitrogen [Mass/Vol] 32.0 mg/dL 7.0-18.0 University [...] 01-10-2024 MCHC (RBC) [Mass/Vol] 31.1 g/dL 29.9-35.2 Fir [facility] MCV Auto (RBC) [Entitic vol] on 01-10-2024 MCV (RBC) [Entitic vol] 97.2 fL 81.0-99.0 F [facility] Monocytes Auto (Bld) [#/Vol] on 01-10-2024 Monocytes (Bld) [#/Vol] 0.8 10 3/uL 0.3-0.8 [facility] Monocytes/100 WBC Auto (Bld) on 01-10-2024 Monocytes/100 WBC (Bld) 10.6 % 1.7-12.0 F [facility] Neutrophils Auto (Bld) [#/Vo l]on 01-10-2024 Neutrophils (Bld) [#/Vol] 4.4 10 3/uL 1.4-6.5 [facility] Neutrophils/100 WBC Auto (Bl d)on 01-10-2024 Neutrophils/100 WBC (Bld) 59.7 % 43.0-75.0 [facility] No Panel Informationon 01-09 Eosinophils # (Auto) 0.2 10 3/uL 0.0-0.7 [facility] Immature Granulocyte # (Auto) 0.11 10 3/uL 0.00-0.03 [facility] Parathyroid Hormone (Intact) 49 pg/mL 15-65 [facility] Comment on above: Performed at: - [facility] [address] [id number] Director: Sriram Knapp PhD, Phone: [phone] Phosphorus Level 4.1 mg/dL 2.6-4.7 [facility] Platelet mean volume Auto (B ld) [Entitic vol]on 01-10-2024 Platelet mean volume (Bld) [Entitic vol] 10.0 fL 9.5-13.5 [facility] Platelets Auto (Bld) [#/Vol] on 01-10-2024 Platelets (Bld) [#/Vol] 285 10 3/uL 150-450 [facility] RBC Auto (Bld) [#/Vol]on RBC (Bld) [#/Vol] 3.60 10 6/uL 4.20-5.40 [facility] Serum or plasma anion gap de terminationon 01-10-2024 Anion gap [Moles/Vol] 14.8 mmol/L [facility] Automated urine specific gra vity by refractometryon 01-09-2024 Specific gravity Refractometry automated (U) [Rel density] 1.015 1.005-1.025 [facility] Bilirubin Auto test strip (U ) [Mass/Vol]on 01-09-2024 Bilirubin (U) [Mass/Vol] Negative NEGATIVE [facility] Color Auto (U)on 01-09-2024 Color (U) LT. YELLOW YELLOW [facility] Ketones Auto test strip (U) [Mass/Vol]on 01-09-2024 Ketones (U) [Mass/Vol] Negative NEGATIVE [facility] Laboratory - Urinalysison Protein (U) [Mass/Vol] 25.2 mg/dL <=11.9 [facility] No Panel Informationon 01-08 Urine Microscopic Review NO [facility] Urine Random Creatinine 59.29 mg/dL 20.0 0-300.0 0 [facility] Protein Auto test strip (U) [Mass/Vol]on 01-09-2024 Protein (U) [Mass/Vol] Negative NEG/TRACE [facility] Specific gravity Auto test s trip (U) [...] CNPNon 01-04-2024 CNPN Telephone (UROLMN) JESÚS NOLAN ([id number]) 1935 F Date Time Provider Department 01/04/24 [...] Status:Closed by KHUSHBOO DAVILA on 01/04/24 Normal [facility] Laboratory - Microbiology an d Antimicrobial susceptibilityOrdered By: Brina Cordero on 01-04-2024 Bacteria identified Cx Nom (U) [facility] CNPNon 12-08-2023 CNPN Telephone (URFMOB) JESÚS NOLAN ([id number]) 1935 F Date Time Provider Department 12/08/23 [...] Diagnosis:Nephrolithia sis [N20.0] Order(s):CT FLANK WO IVCON [[id number]] Order #: [id number] FUTURE Prescriptions as of 12/08/2023 - acetaminophen [...] Encounter Status:Closed by MARK CESAR on 12/08/23 [facility] CNOVon 12-06-2023 CNOV Office Visit (UROLMN ) JESÚS NOLAN ([id number]) 1935 F Date Time Provider Department 12/06/23 [...] Monocytes % 10/17/2023 9.5 % Final Abs [place] 10/17/2023 0.68 <0.87 k/uL Final Eosinophils % [...] (H) 74 - 99 mg/dL Final The [place] [employer] (ADA) provides guidance for cutoff [...] Standards of Medical Care in Diabetes 2016, [place] [employer]. Diabetes Care. 2016.39(Suppl 1). BUN 10/17/2023 30 (H) 7 - 21 mg/dL Final Creatinine 10/17/2023 2.11 (H) 0.58 - 0.96 mg/dL Final Sodium 10/17/2023 143 (more content not included)... Normal [facility] KIDNEY/BLADDERon 12-06-19 US KIDNEY/BLADDER * * [...] with Dr. Garland at 1:55pm on 12/06/23 Stamp Pad Finisher: ELISABET Transcribe Date/Time: Dec 06 2023 1:44P Dictated by : ERICA OSBORN MD This examination was interpreted and the report reviewed and electronically signed by: ERICA OSBORN MD on Dec 06 2023 1:58PM EST [id number] Normal [facility] US Kidney - bilateral and Ur inary bladderon 12-06-2023 [facility] XR ABDOMEN 3V KUB W/OBLIQUES on 12-06-2023 [...] clips. Bones: Left hip prosthesis. Degenerative changes. Stamp Pad Finisher: ELISABET Transcribe Date/Time: Dec 06 2023 2:00P Dictated by : ERICA OSBORN MD This examination was interpreted and the report reviewed and electronically signed by: ERICA OSBORN MD on Dec 06 2023 2:02PM EST [id number] Normal [facility] XR Abdomen GE 3 Views AP and Oblique and [place]oneon 12-06-2023 [facility] Basophils Auto (Bld) [#/Vol] on 11-12-2023 Basophils (Bld) [#/Vol] 0.0 10 3/uL 0.0-0.1 [facility] Basophils/100 WBC Auto (Bld) on 11-12-2023 Basophils/100 WBC (Bld) 0.2 % 0.2-2.0 [facility] Eosinophils/100 WBC Auto (Bl d)on 11-12-2023 Eosinophils/100 [...] challengeon 11-12-2023 Albumin [Mass/Vol] 2.9 g/dL 3.4-5.0 [facility] Calcium [Mass/Vol] 8.5 mg/dL 8.5-10.1 [facility] Chloride [Moles/Vol] 104 mmol/L 98-107 [facility] CO2 [Moles/Vol] 29.4 mmol/L 21.0-32.0 [facility] Creatinine [Mass/Vol] 2.08 mg/dL 0.55-1.02 [facility] GFR/1.73 sq M.predicted MDRD (S/P/Bld) [Vol rate/Area] 27 mL/min/{1.73_m2} >=60 [facility] Glucose [Mass/Vol] 110 mg/dL 74-106 [facility] Magnesium [Mass/Vol] 2.2 mg/dL 1.8-2.4 [facility] Potassium [Moles/Vol] 4.3 mmol/L 3.5-5.1 [facility] Sodium [Moles/Vol] 142 mmol/L 136-145 [facility] Urate [Mass/Vol] 5.9 mg/dL 2.6-6.0 [facility] Urea nitrogen [Mass/Vol] 32.0 mg/dL 7.0-18.0 University [...] MCHC (RBC) [Mass/Vol] 30.6 g/dL 29.9-35.2 Fir [facility] MCV Auto (RBC) [Entitic vol] on 11-12-2023 MCV (RBC) [Entitic vol] 103.6 fL 81.0-99.0 F [facility] Monocytes Auto (Bld) [#/Vol] on 11-12-2023 Monocytes (Bld) [#/Vol] 0.7 10 3/uL 0.3-0.8 [facility] Monocytes/100 WBC Auto (Bld) on 11-12-2023 Monocytes/100 WBC (Bld) 11.7 % 1.7-12.0 F [facility] Neutrophils Auto (Bld) [#/Vo l]on 11-12-2023 Neutrophils (Bld) [#/Vol] 2.7 10 3/uL 1.4-6.5 [facility] Neutrophils/100 WBC Auto (Bl d)on 11-12-2023 Neutrophils/100 WBC (Bld) 47.2 % 43.0-75.0 [facility] No Panel Informationon 11-12 Eosinophils # (Auto) 0.2 10 3/uL 0.0-0.7 [facility] Immature Granulocyte # (Auto) 0.01 10 3/uL 0.00-0.03 [facility] Parathyroid Hormone (Intact) 57 pg/mL 15-65 [facility] Comment on above: Performed at: [facility] [place] [id number] Director: Sriram Knapp PhD, Phone: [phone] Phosphorus Level 3.8 mg/dL 2.6-4.7 [facility] Platelet mean volume Auto (B ld) [Entitic vol]on 11-12-2023 Platelet mean volume (Bld) [Entitic vol] 10.5 fL 9.5-13.5 [facility] Platelets Auto (Bld) [#/Vol] on 11-12-2023 Platelets (Bld) [#/Vol] 260 10 3/uL 150-450 [facility] RBC Auto (Bld) [#/Vol]on RBC (Bld) [#/Vol] 3.38 10 6/uL 4.20-5.40 [facility] Serum or plasma anion gap de terminationon 11-12-2023 Anion gap [Moles/Vol] 12.9 mmol/L [facility] CNOVon 10-27-2023 CNOV Office Visit (UROSMN ) JESÚS NOLAN ([id number]) 1935 F Date Time Provider Department 10/27/23 [...] Yes Patient was roomed in: Q9- 06 Head Of Human Resources offered:Patient accepts, visit chaperoned by daughter Patient [...] Instruction Provided To: Patient and family member Drafter Electrical Present: not applicable Discipline: Nursing Learning Topic: [...] Operative Finding (more content not included)... Normal [facility] Basic metabolic 2000 panelon 10-21-2023 Anion gap [Moles/Vol] 10 mmol/L Normal 9-18 [facility] Comment on above: Order Comment: Speci men Type: BLOOD SPECIMENOrdering Facility: [facility] Address: [address] [id number] Performed By: #### 2 4321-2 ####[facility] LABCLIA [id number] [address] [address] [place] Calcium [Mass/Vol] 8.7 mg/dL Normal 8.5-10.2 [facility] Comment on above: Order Comment: Speci men Type: BLOOD SPECIMENOrdering Facility: [facility] Address: [address] [place], [place] [address] Performed By: #### 2 4321-2 ####[facility] LABCLIA [id number] [place] [address] [place] Chloride [Moles/Vol] 105 mmol/L Normal 97-105 [facility] Comment on above: Order Comment: Speci men Type: BLOOD SPECIMENOrdering Facility: [facility] Address: [address] [place] [address] Performed By: #### 2 4321-2 ####[facility] LABCLIA [id number] [place] [address] [place] CO2 [Moles/Vol] 27 mmol/L Normal 22-30 [facility] Comment on above: Order Comment: Speci men Type: BLOOD SPECIMENOrdering Facility: [facility] Address: [address] [place], [place] [address] Performed By: #### 2 4321-2 ####[facility] LABCLIA [id number] [place] [address] [place] Creatinine [Mass/Vol] 2.04 mg/dL High 0.58-0.96 [facility] Comment on above: Order Comment: Speci men Type: BLOOD SPECIMENOrdering Facility: [facility] Address: [address] [id number] Performed By: #### 2 4321-2 ####[facility] LABCLIA [id number] [place] [address] [place] Creatinine and Glomerular filtration rate.predicted panel (S/P/Bld) 23 mL/min/1.73m??? Low >=60 [facility] Comment on above: Order Comment: Lalo mclaughlin Type: BLOOD SPECIMENOrdering Facility: [facility] Address: [address] [place] [address] Result Comment: Melissa mated Glomerular Filtration Rate [...] actual GFR. Performed By: #### 2 4321-2 ####[facility] LABCLIA [id number] [place] [address] [place] Glucose [Mass/Vol] 180 mg/dL High 74-99 [facility] Comment on above: Order Comment: Lalo mclaughlin Type: BLOOD SPECIMENOrdering Facility: [facility] Address: [address] [place] [address] Result Comment: The [place] Diabetes Association (ADA) provides guidance for cutoff [...] Standards of Medical Care in Diabetes 2016, [place] [employer]. Diabetes Care. 2016.39(Suppl 1). Performed By: #### 2 4321-2 ####[facility] LABIA [id number] [place] [address] [place] Potassium [Moles/Vol] 3.5 mmol/L Low 3.7-5.1 [facility] Comment on above: Order Comment: Speci men Type: BLOOD SPECIMENOrdering Facility: [facility] Address: [address] [place] [address] Performed By: #### 2 4321-2 ####[facility] LABCLIA [id number] [place] [id number] [place] Sodium [Moles/Vol] 142 mmol/L Normal 136-144 [facility] Comment on above: Order Comment: Speci men Type: BLOOD SPECIMENOrdering Facility: [facility] Address: [address] [place] [address] Performed By: #### 2 4321-2 ####[facility] LABCLIA [id number] [place] [address] [place] Urea nitrogen [Mass/Vol] 26 mg/dL High 7-21 [facility] Comment on above: Order Comment: Speci men Type: BLOOD SPECIMENOrdering Facility: [facility] Address: [address] [place] [address] Performed By: #### 2 4321-2 ####[facility] LABCLIA [id number] [place] [address] [place] CBC panel Auto (Bld)on 10-21 Erythrocyte distribution width (RBC) [Ratio] 13.1 % Normal 11.5-15.0 [facility] Comment on above: Order Comment: Speci men Type: BLOOD SPECIMENOrdering Facility: [facility] Address: [address] [place] [address] Performed By: #### 5 8410-2 ####[facility] LABCLIA [id number] [place] [address] [place] Hematocrit (Bld) [Volume fraction] 35.1 % Low 36.0-46.0 [facility] Comment on above: Order Comment: Speci men Type: BLOOD SPECIMENOrdering Facility: [facility] Address: [address] [place] [address] Performed By: #### 5 8410-2 ####[facility] [id number] [place] [address] [place] Hemoglobin (Bld) [Mass/Vol] 11.5 g/dL Normal 11.5-15.5 [facility] Comment on above: Order Comment: Speci men Type: BLOOD SPECIMENOrdering Facility: [facility] Address: [address] [place] [address] Performed By: #### 5 8410-2 ####[facility] [id number] [place] [address] [place] MCH (RBC) [Entitic mass] 31.6 pg Normal 26.0-34.0 [facility] Comment on above: Order Comment: Speci men Type: BLOOD SPECIMENOrdering Facility: [facility] Address: [address] [place] [address] Performed By: #### 5 8410-2 ####[facility] [id number] [place] [address] [place] MCHC (RBC) [Mass/Vol] 32.8 g/dL Normal 30.5-36.0 [facility] Comment on above: Order Comment: Speci men Type: BLOOD SPECIMENOrdering Facility: [facility] Address: [address] [place] [address] Performed By: #### 5 8410-2 ####[facility] [id number] [place] [address] [place] MCV (RBC) [Entitic vol] 96.4 fL Normal 80.0-100.0 [facility] Comment on above: Order Comment: Speci men Type: BLOOD SPECIMENOrdering Facility: [facility] Address: [address] [place] [address] Performed By: #### 5 8410-2 ####[facility] [id number] [place] [address] [place] Nucleated RBC (Bld) [#/Vol] 10*3/uL Normal <0.01 [facility] Comment on above: Order Comment: Speci men Type: BLOOD SPECIMENOrdering Facility: [facility] Address: [address] [place] [address] Performed By: #### 5 8410-2 ####[facility] LABCLIA [id number] [place] [address] [place] Platelet mean volume (Bld) [Entitic vol] 10.7 fL Normal 9.0-12.7 [facility] Comment on above: Order Comment: Speci men Type: BLOOD SPECIMENOrdering Facility: [facility] Address: [address] [place] [address] Performed By: #### 5 8410-2 ####[facility] LABCLIA [id number] [place] [address] [place] Platelets (Bld) [#/Vol] 158 10*3/uL Normal 150-400 [facility] Comment on above: Order Comment: Speci men Type: BLOOD SPECIMENOrdering Facility: [facility] Address: [address] [place] [address] Performed By: #### 5 8410-2 ####[facility] LABCLIA [id number] [place] [address] [place] RBC (Bld) [#/Vol] 3.64 10*6/uL Low 3.90-5.20 [facility] Comment on above: Order Comment: Speci men Type: BLOOD SPECIMENOrdering Facility: [facility] Address: [address] [place] [address] Performed By: #### 5 8410-2 ####[facility] LABCLIA [id number] [place] [address] [place] WBC (Bld) [#/Vol] 8.61 10*3/uL Normal 3.70-11.00 [facility] Comment on above: Order Comment: Speci men Type: BLOOD SPECIMENOrdering Facility: [facility] Address: [address] [place] [address] Performed By: #### 5 8410-2 ####[facility] LABCLIA [id number] [facility]ITALNannette RODRIGUES [id number] [address] [place] THERAPY NTon 10-21-2023 THERAPY NT HNO ID: [id number] Author: MERY KAUR, OT/L Service: Occupational Therapy Author Type: Occupational Therapist Type: Therapy (PT/OT/Speech/Resp) Filed: 10/21/2023 10:57 Note Text: Occupational Therapy Evaluation Summary SERVICE DATE: 10/21/2023 SERVICE TIME: 35 to 100 ROOM: [place] [address] OT 6 Clicks Score: 18 DISCHARGE RECOMMENDATIONS Subacute/SNF Recommended Discharge Disposition Comments: Return to [facility] Anticipated Discharge Needs: Physical Assist at Home [...] EOB > chair with min A and SUPERVISOR PASTE MIXING this date. 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 Baseline Cognition: Oriented to self, Oriented to [...] symptoms and signs-other TREATMENT INTERVENTIONS Evaluation, Self [facility] Management ([id number]) Timed Code Treatment (minutes): 13 Skilled Treatment Time (minutes): 28 TRAINING AND EDUCATION PROVIDED Activity Adaptation/Client Onboarding Analyst y Strategies, Altering Thinking Patterns, Adaptive Equipment/DME, [...] Therapy, Sensory Integration, Sitting Balance to Improve Dare with ADLs/Self-Care, Standing Balance to Improve Dare with ADLs/Self-Care, Transfer - Sit to Stand, [...] Type: Stepping Bed To Chair Transfer Equipment: (SUPERVISOR PASTE MIXING) Toilet/Commode Shower Functional Mobility GOALS Patient will demonstrate understanding (more content not included)... Normal [facility] Basic metabolic 2000 panelon 10-20-2023 Anion gap [Moles/Vol] 14 mmol/L Normal 9-18 [facility] Comment on above: Order Comment: Speci men Type: BLOOD SPECIMENOrdering Facility: [facility] Address: [address] [place] [address] Performed By: #### 2 4321-2 ####[facility] LABCLIA [id number] [place] [address] [place] Calcium [Mass/Vol] 9.2 mg/dL Normal 8.5-10.2 [facility] Comment on above: Order Comment: Speci men Type: BLOOD SPECIMENOrdering Facility: [facility] Address: [address] [place] [address] Performed By: #### 2 4321-2 ####[facility] LABCLIA [id number] [place] [address] [place] Chloride [Moles/Vol] 103 mmol/L Normal 97-105 [facility] Comment on above: Order Comment: Speci men Type: BLOOD SPECIMENOrdering Facility: [facility] Address: [address] [place] [address] Performed By: #### 2 4321-2 ####[facility] LABCLIA [id number] [place] [address] [place] CO2 [Moles/Vol] 25 mmol/L Normal 22-30 [facility] Comment on above: Order Comment: Speci men Type: BLOOD SPECIMENOrdering Facility: [facility] Address: [address] [place] [address] Performed By: #### 2 4321-2 ####[facility] LABIA [id number] [place] [id number] [place] Creatinine [Mass/Vol] 1.90 mg/dL High 0.58-0.96 [facility] Comment on above: Order Comment: Lalo mclaughlin Type: BLOOD SPECIMENOrdering Facility: [facility] Address: [address] [place] [address] Performed By: #### 2 4321-2 ####[facility] LABIA [id number] [place] [address] [place] Creatinine and Glomerular filtration rate.predicted panel (S/P/Bld) 25 mL/min/1.73m??? Low >=60 [facility] Comment on above: Order Comment: Lalo mclaughlin Type: BLOOD SPECIMENOrdering Facility: [facility] Address: [address] [place] [address] Result Comment: Melissa mated Glomerular Filtration Rate [...] actual GFR. Performed By: #### 2 4321-2 ####[facility] LABIA [id number] [place] [address] [place] Glucose [Mass/Vol] 92 mg/dL Normal 74-99 [facility] Comment on above: Order Comment: Lalo mclaughlin Type: BLOOD SPECIMENOrdering Facility: [facility] Address: [address] [place] [address] Result Comment: The [place] Diabetes Association (ADA) provides guidance for cutoff [...] Standards of Medical Care in Diabetes 2016, [place] [employer]. Diabetes Care. 2016.39(Suppl 1). Performed By: #### 2 4321-2 ####[facility] LABCLIA [id number] [place] [address] [place] Potassium [Moles/Vol] Normal [facility] Comment on above: Order Comment: Speci men Type: BLOOD SPECIMENOrdering Facility: [facility] Address: [address] [place] [address] Result Comment: Unab le to assay due to interference from hemolysis. Suggest reorder as clinically indicated. Performed By: #### 2 4321-2 ####[facility] LABIA [id number] [place] [address] [place] Sodium [Moles/Vol] 142 mmol/L Normal 136-144 [facility] Comment on above: Order Comment: Speci men Type: BLOOD SPECIMENOrdering Facility: [facility] Address: [address] [place] [address] Performed By: #### 2 4321-2 ####[facility] LABIA [id number] [place] [address] [place] Urea nitrogen [Mass/Vol] 21 mg/dL Normal 7-21 [facility] Comment on above: Order Comment: Speci men Type: BLOOD SPECIMENOrdering Facility: [facility] Address: [address] [place] [address] Performed By: #### 2 4321-2 ####[facility] LABIA [id number] [place] [id number] [place] CNDSon 10-20-2023 CNDS HNO ID: [id number] Author: RICCO GARLAND MD Service: Urology Author Type: Physician Type: Discharge Summary Filed: 10/24/2023 20:32 Note Text: The [place] [phone] or ([phone]) [facility] I D E N T I A L I N F O R M A T I O N STANDARD [facility] DOCUMENT DISCHARGE SUMMARY Patient Name: Jesús [...] UP TO 2cm (Left) on 10/18. Subsequently AGATE SETTER is required. Please contact your sql database administrator to configure this SmartLink. was transferred to a regular nursing unit. Pain was initially controlled with intravenous/oral analgesia, Diet was slowly advanced as tolerated , Activity level was gradually increased, On post-operative day 2 she was afebrile for approximately 24 hours, ambulating without difficulty, tolerating diet, and pain was adequately controlled with oral medication. The patient was discharged to her fpc with instructions to return for follow up [...] Medications These medications were sent to e- [facility]/pharmacy #[id number] [place] [id number] - [address] [place] [address] - [phone] [place] [id number] amoxicillin 250 mg capsule tamsulosin 0.4 mg You can get these medications from any pharmacy You don't need a prescription for these medications acetaminophen 500 mg tablet Future Appointments: No future appointments. Electronically SIGNED by Licensed Independent Practitioner: MD Ricco Wilcox MD, FACS Director, Surgical Stone Disease, [facility] director information security, [facility] Pager [phone] 10/20/2023 Note: Due to patient confusion/combativenes s, we may need to hold discharge and revise this summary. Ricco Garland MD, FACS Director, Surgical Stone Disease, [facility] director information security, [facility] Pager [phone] 10/20/2023 Normal [facility] CONSULTon 10-20-2023 CONSULT HNO ID: [id number] Author: FANTA MEDELLIN MD Service: Psychiatry Author Type: Physician Type: Consults Filed: 10/21/2023 18:06 Note Text: PSYCHIATRY CONSULT SERVICE MEDICAL STUDENT INITIAL CONSULT NOTE DAY TIME COVERAGE: Between 8AM to 5PM, page [phone] NIGHT AND WEEKEND COVERAGE: After hours (5PM to 8AM) and weekends, page [phone] SERVICE DATE: October 20, 2023 SERVICE TIME: [...] medically managed RECOMMENDATIONS: -Delirium protocol - 1:1 day care worker for safety - Use Haloperidol 2 mg PO or IM q 6 hours, PRN for severe agitation if behavioral interventions fail - Continue 9 mg Melatonin at bedtime for sleep - Continue home psychiatric medications- Buspar 10 mg daily for anxiety. - Please AVOID opioids, benzodiazepines, or anticholinergic medications. - Psych to follow up while inpatient Jose KUMAR [phone] ____ This note was generated by a [...] is a 88 year old female from [place], [place]. History of Present Illness: She is [...] daughter and son in law in the [facility] area. She was well-groomed and dressed in [...] SYMPTOMS: Depressio (more content not included)... Normal [facility] NURSING PROGon 10-20-2023 NURSING PROG HNO ID: [id number] Author: MIRIAN WALSH RN Service: Nursing Author [...] the left thigh. Mirian FERNANDES RN Normal [facility] THERAPY NTon 10-20-2023 THERAPY NT HNO ID: [id number] Author: [place] GATICA PT Service: Physical Therapy Author Type: Physical Therapist Type: Therapy (PT/OT/Speech/Resp) Filed: 10/20/2023 12:00 Note Text: PHYSICAL THERAPY MISSED VISIT SERVICE DATE: 10/20/2023 SERVICE TIME: 0943 ROOM: [place] [address] Patient not seen due to: Spoke with CM who stated the patient is being discharged. SIGNATURE: Oh Gatica PT PATIENT NAME: Jesús Nolan DATE: October 20, 2023 TIME: 11:59 AM Normal [facility] THERAPY NT HNO ID: [id number] Author: MERY KAUR OT/L Service: Occupational Therapy Author Type: Occupational Therapist Type: Therapy (PT/OT/Speech/Resp) Filed: 10/20/2023 09:49 Note Text: OCCUPATIONAL THERAPY MISSED VISIT SERVICE DATE: 10/20/2023 SERVICE TIME: 0815 ROOM: [place] [address] Patient not seen due to Clinical Appropriateness. OT attempted eval this AM- pt combative, aggressive, and verbally abusive towards therapist. Pt now with active discharge order for this AM. OT will reattempt if necessary. SIGNATURE: KAYLA Ornelas PATIENT NAME: Jesús Nolan DATE: October 20, 2023 TIME: 9:47 AM Normal [facility] Basic metabolic 2000 panelon 10-19-2023 Anion gap [Moles/Vol] 11 mmol/L Normal 9-18 [facility] Comment on above: Order Comment: Speci men Type: BLOOD SPECIMENOrdering Facility: [facility] Address: [address] [place] [address] Performed By: #### 2 4321-2 ####[facility] LABCLIA [id number] [place] [address] [place] Calcium [Mass/Vol] 8.6 mg/dL Normal 8.5-10.2 [facility] Comment on above: Order Comment: Speci men Type: BLOOD SPECIMENOrdering Facility: [facility] Address: [address] [place] [address] Performed By: #### 2 4321-2 ####[facility] LABCLIA [id number] [place] [address] [place] Chloride [Moles/Vol] 105 mmol/L Normal 97-105 [facility] Comment on above: Order Comment: Speci men Type: BLOOD SPECIMENOrdering Facility: [facility] Address: [address] [place] [address] Performed By: #### 2 4321-2 ####[facility] LABCLIA [id number] [place] [address] [place] CO2 [Moles/Vol] 26 mmol/L Normal 22-30 [facility] Comment on above: Order Comment: Speci men Type: BLOOD SPECIMENOrdering Facility: [facility] Address: [address] [place] [address] Performed By: #### 2 4321-2 ####[facility] LABCLIA [id number] [place] [address] [place] Creatinine [Mass/Vol] 2.02 mg/dL High 0.58-0.96 [facility] Comment on above: Order Comment: Speci men Type: BLOOD SPECIMENOrdering Facility: [facility] Address: [address] [place] [address] Performed By: #### 2 4321-2 ####[facility] LABIA [id number] [place] [address] [place] Creatinine and Glomerular filtration rate.predicted panel (S/P/Bld) 24 mL/min/1.73m??? Low >=60 [facility] Comment on above: Order Comment: Speci men Type: BLOOD SPECIMENOrdering Facility: [facility] Address: [address] [place] [address] Result Comment: Melissa mated Glomerular Filtration Rate [...] actual GFR. Performed By: #### 2 4321-2 ####[facility] LABIA [id number] [place] [address] [place] Glucose [Mass/Vol] 131 mg/dL High 74-99 [facility] Comment on above: Order Comment: Speci men Type: BLOOD SPECIMENOrdering Facility: [facility] Address: [address] [place] [address] Result Comment: The [place] Diabetes Association (ADA) provides guidance for cutoff [...] Standards of Medical Care in Diabetes 2016, [place] [employer]. Diabetes Care. 2016.39(Suppl 1). Performed By: #### 2 4321-2 ####[facility] LABCLIA [id number] [place] [address] [place] Potassium [Moles/Vol] 3.9 mmol/L Normal 3.7-5.1 [facility] Comment on above: Order Comment: Speci men Type: BLOOD SPECIMENOrdering Facility: [facility] Address: [address] [place] [address] Performed By: #### 2 4321-2 ####[facility] LABCLIA [id number] [place] [address] [place] Sodium [Moles/Vol] 142 mmol/L Normal 136-144 [facility] Comment on above: Order Comment: Speci men Type: BLOOD SPECIMENOrdering Facility: [facility] Address: [address] [place] [address] Performed By: #### 2 4321-2 ####[facility] LABCLIA [id number] [place] [address] [place] Urea nitrogen [Mass/Vol] 25 mg/dL High 7-21 [facility] Comment on above: Order Comment: Speci men Type: BLOOD SPECIMENOrdering Facility: [facility] Address: [address] [place] [address] Performed By: #### 2 4321-2 ####[facility] LABCLIA [id number] [place] [address] [place] CBC W Auto Differential pane l (Bld)on 10-19-2023 Basophils (Bld) [#/Vol] 10*3/uL Normal <0.11 [facility] Comment on above: Order Comment: Speci men Type: BLOOD SPECIMENOrdering Facility: [facility] Address: [address] [place] [address] Performed By: #### 5 7021-8 ####[facility] LABCLIA [id number] [place] [address] [place] Basophils/100 WBC (Bld) 0.2 % Normal [facility] Comment on above: Order Comment: Speci men Type: BLOOD SPECIMENOrdering Facility: [facility] Address: [address] [place] [address] Performed By: #### 5 7021-8 ####[facility] LABCLIA [id number] [place] [address] [place] Differential cell count method Nom (Bld) Auto Normal [facility] Comment on above: Order Comment: Speci men Type: BLOOD SPECIMENOrdering Facility: [facility] Address: [address] [place] [address] Performed By: #### 5 7021-8 ####[facility] LABCLIA [id number] [place] [address] [place] Eosinophils (Bld) [#/Vol] 0.03 10*3/uL Normal <0.46 [facility] Comment on above: Order Comment: Speci men Type: BLOOD SPECIMENOrdering Facility: [facility] Address: [address] [place] [address] Performed By: #### 5 7021-8 ####[facility] LABCLIA [id number] [place] [address] [place] Eosinophils/100 WBC (Bld) 0.2 % Normal [facility] Comment on above: Order Comment: Speci men Type: BLOOD SPECIMENOrdering Facility: [facility] Address: [address] [place] [address] Performed By: #### 5 7021-8 ####[facility] LABCLIA [id number] [place] [address] [place] Erythrocyte distribution width (RBC) [Ratio] 13.3 % Normal 11.5-15.0 [facility] Comment on above: Order Comment: Speci men Type: BLOOD SPECIMENOrdering Facility: [facility] Address: [address] [place] [address] Performed By: #### 5 7021-8 ####[facility] LABIA [id number] [place] [address] [place] Hematocrit (Bld) [Volume fraction] 36.8 % Normal 36.0-46.0 [facility] Comment on above: Order Comment: Speci men Type: BLOOD SPECIMENOrdering Facility: [facility] Address: [address] [place] [address] Performed By: #### 5 7021-8 ####[facility] LABIA [id number] [place] [address] [place] Hemoglobin (Bld) [Mass/Vol] 11.8 g/dL Normal 11.5-15.5 [facility] Comment on above: Order Comment: Speci men Type: BLOOD SPECIMENOrdering Facility: [facility] Address: [address] [place] [address] Performed By: #### 5 7021-8 ####[facility] LABIA [id number] [place] [address] [place] Immature granulocytes (Bld) [#/Vol] 0.05 10*3/uL Normal <0.10 [facility] Comment on above: Order Comment: Speci men Type: BLOOD SPECIMENOrdering Facility: [facility] Address: [address] [place] [address] Performed By: #### 5 7021-8 ####[facility] LABCLIA [id number] [place] [address] [place] Immature granulocytes/100 WBC (Bld) 0.4 % Normal [facility] Comment on above: Order Comment: Speci men Type: BLOOD SPECIMENOrdering Facility: [facility] Address: [address] [place] [address] Performed By: #### 5 7021-8 ####[facility] LABIA [id number] [place] [address] [place] Lymphocytes (Bld) [#/Vol] 1.26 10*3/uL Normal 1.00-4.00 [facility] Comment on above: Order Comment: Speci men Type: BLOOD SPECIMENOrdering Facility: [facility] Address: [address] [place] [address] Performed By: #### 5 7021-8 ####[facility] LABIA [id number] [place] [address] [place] Lymphocytes/100 WBC (Bld) 10.1 % Normal [facility] Comment on above: Order Comment: Speci men Type: BLOOD SPECIMENOrdering Facility: [facility] Address: [address] [place] [address] Performed By: #### 5 7021-8 ####[facility] LABIA [id number] [place] [address] [place] MCH (RBC) [Entitic mass] 32.6 pg Normal 26.0-34.0 [facility] Comment on above: Order Comment: Speci men Type: BLOOD SPECIMENOrdering Facility: [facility] Address: [address] [place] [address] Performed By: #### 5 7021-8 ####[facility] LABIA [id number] [place] [address] [place] MCHC (RBC) [Mass/Vol] 32.1 g/dL Normal 30.5-36.0 [facility] Comment on above: Order Comment: Speci men Type: BLOOD SPECIMENOrdering Facility: [facility] Address: [address] [place] [address] Performed By: #### 5 7021-8 ####[facility] LABCLIA [id number] [place] [address] [place] MCV (RBC) [Entitic vol] 101.7 fL High 80.0-100.0 [facility] Comment on above: Order Comment: Speci men Type: BLOOD SPECIMENOrdering Facility: [facility] Address: [address] [place] [address] Performed By: #### 5 7021-8 ####[facility] LABIA [id number] [place] [address] [place] Monocytes (Bld) [#/Vol] 1.09 10*3/uL High <0.87 [facility] Comment on above: Order Comment: Speci men Type: BLOOD SPECIMENOrdering Facility: [facility] Address: [address] [place] [address] Performed By: #### 5 7021-8 ####[facility] LABIA [id number] [place] [address] [place] Monocytes/100 WBC (Bld) 8.7 % Normal [facility] Comment on above: Order Comment: Speci men Type: BLOOD SPECIMENOrdering Facility: [facility] Address: [address] [place] [address] Performed By: #### 5 7021-8 ####[facility] LABIA [id number] [place] [address] [place] Neutrophils (Bld) [#/Vol] 10.04 10*3/uL High 1.45-7.50 [facility] Comment on above: Order Comment: Speci men Type: BLOOD SPECIMENOrdering Facility: [facility] Address: [address] [place], [place] [address] Performed By: #### 5 7021-8 ####[facility] LABCLIA [id number] [place] [address] [place] Neutrophils/100 WBC (Bld) 80.4 % Normal [facility] Comment on above: Order Comment: Speci men Type: BLOOD SPECIMENOrdering Facility: [facility] Address: [address] [place] [address] Performed By: #### 5 7021-8 ####[facility] LABCLIA [id number] [place] [address] [place] Nucleated RBC (Bld) [#/Vol] 10*3/uL Normal <0.01 [facility] Comment on above: Order Comment: Speci men Type: BLOOD SPECIMENOrdering Facility: [facility] Address: [address] [place] [address] Performed By: #### 5 7021-8 ####[facility] LABIA [id number] [place] [address] [place] Nucleated RBC/100 WBC (Bld) [Ratio] 0.0 /100 WBC Normal [facility] Comment on above: Order Comment: Speci men Type: BLOOD SPECIMENOrdering Facility: [facility] Address: [address] [place] [address] Performed By: #### 5 7021-8 ####[facility] LABIA [id number] [place] [address] [place] Platelet mean volume (Bld) [Entitic vol] 10.6 fL Normal 9.0-12.7 [facility] Comment on above: Order Comment: Speci men Type: BLOOD SPECIMENOrdering Facility: [facility] Address: [address] [place] [address] Performed By: #### 5 7021-8 ####[facility] LABIA [id number] [place] [address] [place] Platelets (Bld) [#/Vol] 168 10*3/uL Normal 150-400 [facility] Comment on above: Order Comment: Speci men Type: BLOOD SPECIMENOrdering Facility: [facility] Address: [place] [address] Performed By: #### 5 7021-8 ####[facility] LABCLIA [id number] [place] [address] [place] RBC (Bld) [#/Vol] 3.62 10*6/uL Low 3.90-5.20 [facility] Comment on above: Order Comment: Speci men Type: BLOOD SPECIMENOrdering Facility: [facility] Address: [place] [address] Performed By: #### 5 7021-8 ####[facility] LABCLIA [id number] [place] [address] [place] WBC (Bld) [#/Vol] 12.49 10*3/uL High 3.70-11.00 [facility] Comment on above: Order Comment: Speci men Type: BLOOD SPECIMENOrdering Facility: [facility] Address: [place] [address] Performed By: #### 5 7021-8 ####[facility] LABIA [id number] [place] [address] [place] ANES POSTPROC EVALon 024 ANES POSTPROC EVAL HNO ID: [id number] Author: ESVIN ALLEN MD Service: ? Author Type: Anesthesiologist Type: Anesthesia Postprocedure Evaluation Filed: 10/18/2023 12:06 Note Text: POST ANESTHESIA EVALUATION NOTE : 1935 Procedure Summary Date: 10/18/23 Room / Location: [address] [facility] Anesthesia Start: 33 Anesthesia Stop: 105 Procedure: PERC NEPHROLITHOTOMY LITHOTRIPSY,STONE EXTRACTION,ANTEGRADE URETEROSCOPY,STENT PLACEMENT [...] October 18, 2023 TIME: 12:06 PM CSN: [id number] Normal [facility] ANES PRE-OPon 10-18-2023 ANES PRE-OP HNO ID: [id number] Author: ESVIN ALLEN MD Service: ? Author [...] October 18, 2023 TIME: 7:49 AM CSN: [id number] Normal [facility] Bacteria Ur Culton Bacteria identified Cx Nom (U) CULTURE, URINE: No growth (<1,000 CFU/ml) Normal [facility] Comment on above: Performed By: #### 6 30-4 ####[facility] LABCLIA [id number] [place] [address] [place] Basic metabolic 2000 panelon 10-18-2023 Anion gap [Moles/Vol] 14 mmol/L Normal 9-18 [facility] Comment on above: Order Comment: Speci men Type: BLOOD SPECIMENOrdering Facility: [facility] Address: [address] [place] [address] Performed By: #### 2 4321-2 ####[facility] LABCLIA [id number] [place] [address] [place] Calcium [Mass/Vol] 8.0 mg/dL Low 8.5-10.2 [facility] Comment on above: Order Comment: Speci men Type: BLOOD SPECIMENOrdering Facility: [facility] Address: [address] [place] [address] Performed By: #### 2 4321-2 ####[facility] LABCLIA [id number] [place] [address] [place] Chloride [Moles/Vol] 106 mmol/L High 97-105 [facility] Comment on above: Order Comment: Speci men Type: BLOOD SPECIMENOrdering Facility: [facility] Address: [address] [place] [address] Performed By: #### 2 4321-2 ####[facility] LABCLIA [id number] [place] [address] [place] CO2 [Moles/Vol] 24 mmol/L Normal 22-30 [facility] Comment on above: Order Comment: Speci men Type: BLOOD SPECIMENOrdering Facility: [facility] Address: [address] [place] [address] Performed By: #### 2 4321-2 ####[facility] LABIA [id number] [place] [address] [place] Creatinine [Mass/Vol] 1.91 mg/dL High 0.58-0.96 [facility] Comment on above: Order Comment: Speci men Type: BLOOD SPECIMENOrdering Facility: [facility] Address: [address] [place] [address] Performed By: #### 2 4321-2 ####[facility] LABIA [id number] [place] [address] [place] Creatinine and Glomerular filtration rate.predicted panel (S/P/Bld) 25 mL/min/1.73m??? Low >=60 [facility] Comment on above: Order Comment: Speci men Type: BLOOD SPECIMENOrdering Facility: [facility] Address: [address] [place] [address] Result Comment: Melissa mated Glomerular Filtration Rate [...] actual GFR. Performed By: #### 2 4321-2 ####[facility] LABIA [id number] [place] [id number] [place] Glucose [Mass/Vol] 197 mg/dL High 74-99 [facility] Comment on above: Order Comment: Speci men Type: BLOOD SPECIMENOrdering Facility: [facility] Address: [address] [place] [address] Result Comment: The [place] Diabetes [employer] (ADA) provides guidance for cutoff [...] Standards of Medical Care in Diabetes 2016, [place] [employer]. Diabetes Care. 2016.39(Suppl 1). Performed By: #### 2 4321-2 ####[facility] LABIA [id number] [place] [address] [place] Potassium [Moles/Vol] 4.0 mmol/L Normal 3.7-5.1 [facility] Comment on above: Order Comment: Speci men Type: BLOOD SPECIMENOrdering Facility: [facility] Address: [address] [place] [address] Performed By: #### 2 4321-2 ####[facility] LABIA [id number] [place] [address] [place] Sodium [Moles/Vol] 144 mmol/L Normal 136-144 [facility] Comment on above: Order Comment: Speci men Type: BLOOD SPECIMENOrdering Facility: [facility] Address: [address] [place] [address] Performed By: #### 2 4321-2 ####[facility] LABIA [id number] [place] [address] [place] Urea nitrogen [Mass/Vol] 25 mg/dL High 7-21 [facility] Comment on above: Order Comment: Speci men Type: BLOOD SPECIMENOrdering Facility: [facility] Address: [address] [place] [address] Performed By: #### 2 4321-2 ####[facility] LABIA [id number] [place] [address] [place] CALCULI ANALYSISon 4 Calculus analysis [Interp] Normal [facility] Comment on above: Order Comment: Speci men Type: CALCULUS SPECIMENOrdering Facility: [facility] Address: [address] [place] [address] Result Comment: This test was developed and its performance characteristics determined by [facility] [place] ([facility] It has not been cleared or approved by the FDA. [facility] is regulated under CLIA as qualified to perform high-complexity testing. This test is used for clinical purposes. It should not be regarded as investigational or for research. Performed By: #### C SA ####[facility] LABIA [id number] [place] [address] [place] CALCULUS COLOR MEDINA Normal [facility] Comment on above: Order Comment: Speci men Type: CALCULUS SPECIMENOrdering Facility: [facility] Address: [address] [place] [address] Performed By: #### C SA ####[facility] LABIA [id number] [place] [address] [place] CALCULUS COMPOSITION 1 60% Calcium Phosphate Normal [facility] Comment on above: Order Comment: Speci men Type: CALCULUS SPECIMENOrdering Facility: [facility] Address: [address] [place] [address] Performed By: #### C SA ####[facility] [id number] [address] [place] CALCULUS COMPOSITION 2 40% Magnesium Amm onium Phosphate Normal [facility] Comment on above: Order Comment: Speci men Type: CALCULUS SPECIMENOrdering Facility: [facility] Address: [address] [place] [address] Performed By: #### C SA ####[facility] LABIA [id number] [place] [address] [place] CALCULUS SIZE AND WT Multiple pieces. 12.1620 GRAMS Normal [facility] Comment on above: Order Comment: Speci men Type: CALCULUS SPECIMENOrdering Facility: [facility] Address: [address] [place] [address] Performed By: #### C SA ####[facility] LABIA [id number] [place] [address] [place] CALCULUS TYPE CALCULI/CALCULUS Normal [facility] Comment on above: Order Comment: Speci men Type: CALCULUS SPECIMENOrdering Facility: [facility] Address: [address] [place] [address] Performed By: #### C SA ####[facility] LABIA [id number] [place] [address] [place] CBC panel Auto (Bld)on 10-18 Erythrocyte distribution width (RBC) [Ratio] 13.2 % Normal 11.5-15.0 [facility] Comment on above: Order Comment: Speci men Type: BLOOD SPECIMENOrdering Facility: [facility] Address: [address] [place] [address] Performed By: #### 5 8410-2 ####[facility] LABIA [id number] [place] [address] [place] Hematocrit (Bld) [Volume fraction] 37.0 % Normal 36.0-46.0 [facility] Comment on above: Order Comment: Speci men Type: BLOOD SPECIMENOrdering Facility: [facility] Address: [address] [place] [address] Performed By: #### 5 8410-2 ####[facility] LABIA [id number] [place] [address] [place] Hemoglobin (Bld) [Mass/Vol] 11.8 g/dL Normal 11.5-15.5 [facility] Comment on above: Order Comment: Speci men Type: BLOOD SPECIMENOrdering Facility: [facility] Address: [address] [place] [address] Performed By: #### 5 8410-2 ####[facility] LABIA [id number] [place] [id number] [place] MCH (RBC) [Entitic mass] 31.7 pg Normal 26.0-34.0 [facility] Comment on above: Order Comment: Speci men Type: BLOOD SPECIMENOrdering Facility: [facility] Address: [address] [place] [address] Performed By: #### 5 8410-2 ####[facility] LABCLIA [id number] [place] [address] [place] MCHC (RBC) [Mass/Vol] 31.9 g/dL Normal 30.5-36.0 [facility] Comment on above: Order Comment: Speci men Type: BLOOD SPECIMENOrdering Facility: [facility] Address: [address] [place] [address] Performed By: #### 5 8410-2 ####[facility] LABCLIA [id number] [place] [address] [place] MCV (RBC) [Entitic vol] 99.5 fL Normal 80.0-100.0 [facility] Comment on above: Order Comment: Speci men Type: BLOOD SPECIMENOrdering Facility: [facility] Address: [address] [place] [address] Performed By: #### 5 8410-2 ####[facility] LABIA [id number] [place] [address] [place] Nucleated RBC (Bld) [#/Vol] 10*3/uL Normal <0.01 [facility] Comment on above: Order Comment: Speci men Type: BLOOD SPECIMENOrdering Facility: [facility] Address: [address] [place] [address] Performed By: #### 5 8410-2 ####[facility] LABCLIA [id number] [place] [address] [place] Platelet mean volume (Bld) [Entitic vol] 10.4 fL Normal 9.0-12.7 [facility] Comment on above: Order Comment: Speci men Type: BLOOD SPECIMENOrdering Facility: [facility] Address: [address] [place] [address] Performed By: #### 5 8410-2 ####[facility] LABCLIA [id number] [place] [address] [place] Platelets (Bld) [#/Vol] 165 10*3/uL Normal 150-400 [facility] Comment on above: Order Comment: Speci men Type: BLOOD SPECIMENOrdering Facility: [facility] Address: [address] [place] [address] Performed By: #### 5 8410-2 ####[facility] LABCLIA [id number] [place] [address] [place] RBC (Bld) [#/Vol] 3.72 10*6/uL Low 3.90-5.20 [facility] Comment on above: Order Comment: Speci men Type: BLOOD SPECIMENOrdering Facility: [facility] Address: [address] [place] [address] Performed By: #### 5 8410-2 ####[facility] LABCLIA [id number] [place] [address] [place] WBC (Bld) [#/Vol] 18.32 10*3/uL High 3.70-11.00 [facility] Comment on above: Order Comment: Speci men Type: BLOOD SPECIMENOrdering Facility: [facility] Address: [address] [place] [address] Performed By: #### 5 8410-2 ####[facility] LABCLIA [id number] [place] [address] [place] OPERATIVE NOon 10-18-2023 OPERATIVE NO HNO ID: [id number] Author: RICCO GARLAND MD Service: Urology Author Type: Physician Type: Operative Report Filed: 10/18/2023 11:07 Note Text: OPERATIVE/PROCEDURE REPORT LOG ID: [id number] Surgery/Procedure Date: 10/18/2023 Incision/Procedure Start Time: 8:31 AM Incision Close/Procedure End Time: 10:20 AM Surgeon(s)/Procedurali st(s) and Sand Mixer Operator(s): Surgeon(s) and Role: * Ricco Garland MD [...] < 1 hr Anesthesia: General Findings: Stone Sheridan: 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 Normal [facility] XR CHEST 1V FRONTAL PORTon [...] normal limits. IMPRESSION: No acute cardiopulmonary process. Stamp Pad Finisher: PSCB Transcribe Date/Time: Oct 18 2023 11:35A Dictated by : CHARLIE JOHNSON MD This examination was interpreted and the report reviewed and electronically signed by: CHARLIE JOHNSON MD on Oct 18 2023 11:35AM EST [id number] Normal [facility] Bacteria Ur Culton Bacteria identified Cx Nom (U) CULTURE, URINE: No growth (<1,000 CFU/ml) Normal [facility] Comment on above: Performed By: #### 6 30-4 ####[facility] LABCLIA [id number] [place] [address] [place] Basic metabolic 2000 panelon 10-17-2023 Anion gap [Moles/Vol] 17 mmol/L Normal 9-18 [facility] Comment on above: Order Comment: Speci men Type: BLOOD SPECIMENOrdering Facility: [facility] Address: [address] [place] [address] Performed By: #### 2 4321-2 ####[facility] LABCLIA [id number] [place] [address] [place] Calcium [Mass/Vol] 9.7 mg/dL Normal 8.5-10.2 [facility] Comment on above: Order Comment: Speci men Type: BLOOD SPECIMENOrdering Facility: [facility] Address: [address] [place] [address] Performed By: #### 2 4321-2 ####[facility] LABCLIA [id number] [place] [address] [place] Chloride [Moles/Vol] 103 mmol/L Normal 97-105 [facility] Comment on above: Order Comment: Speci men Type: BLOOD SPECIMENOrdering Facility: [facility] Address: [address] [place] [address] Performed By: #### 2 4321-2 ####[facility] LABCLIA [id number] [place] [address] [place] CO2 [Moles/Vol] 23 mmol/L Normal 22-30 [facility] Comment on above: Order Comment: Speci men Type: BLOOD SPECIMENOrdering Facility: [facility] Address: [address] [place] [address] Performed By: #### 2 4321-2 ####[facility] LABCLIA [id number] [place] [address] [place] Creatinine [Mass/Vol] 2.11 mg/dL High 0.58-0.96 [facility] Comment on above: Order Comment: Speci men Type: BLOOD SPECIMENOrdering Facility: [facility] Address: [address] [place] [address] Performed By: #### 2 4321-2 ####[facility] LABCLIA [id number] [place] [address] [place] Creatinine and Glomerular filtration rate.predicted panel (S/P/Bld) 22 mL/min/1.73m??? Low >=60 [facility] Comment on above: Order Comment: Speci men Type: BLOOD SPECIMENOrdering Facility: [facility] Address: [address] [place] [address] Result Comment: Melissa mated Glomerular Filtration Rate [...] actual GFR. Performed By: #### 2 4321-2 ####[facility] LABCLIA [id number] [place] [address] [place] Glucose [Mass/Vol] 129 mg/dL High 74-99 [facility] Comment on above: Order Comment: Speci men Type: BLOOD SPECIMENOrdering Facility: [facility] Address: [address] [place] [address] Result Comment: The [place] Diabetes [employer] (ADA) provides guidance for cutoff [...] Standards of Medical Care in Diabetes 2016, [place] [employer]. Diabetes Care. 2016.39(Suppl 1). Performed By: #### 2 4321-2 ####[facility] LABCLIA [id number] [place] [id number] [place] Potassium [Moles/Vol] 4.3 mmol/L Normal 3.7-5.1 [facility] Comment on above: Order Comment: Speci men Type: BLOOD SPECIMENOrdering Facility: [facility] Address: [address] [place] [id number] Performed By: #### 2 4321-2 ####[facility] LABCLIA [id number] [address] [address] [place] Sodium [Moles/Vol] 143 mmol/L Normal 136-144 [facility] Comment on above: Order Comment: Speci men Type: BLOOD SPECIMENOrdering Facility: [facility] Address: [address] [place] [address] Performed By: #### 2 4321-2 ####[facility] LABCLIA [id number] [place] [address] [place] Urea nitrogen [Mass/Vol] 30 mg/dL High 04-16 [facility] Comment on above: Order Comment: Speci men Type: BLOOD SPECIMENOrdering Facility: [facility] Address: [address] [place] [address] Performed By: #### 2 4321-2 ####[facility] LABCLIA [id number] [place] [address] [place] CBC W Auto Differential pane l (Bld)on 10-17-2023 Basophils (Bld) [#/Vol] 10*3/uL Normal <0.11 [facility] Comment on above: Order Comment: Speci men Type: BLOOD SPECIMENOrdering Facility: [facility] Address: [address] [place] [address] Performed By: #### 5 7021-8 ####[facility] LABCLIA [id number] [place] [address] [place] Basophils/100 WBC (Bld) 0.1 % [facility] Comment on above: Order Comment: Speci men Type: BLOOD SPECIMENOrdering Facility: [facility] Address: [address] [place] [address] Performed By: #### 5 7021-8 ####[facility] LABCLIA [id number] [place] [address] [place] Differential cell count method Nom (Bld) Auto Normal [facility] Comment on above: Order Comment: Speci men Type: BLOOD SPECIMENOrdering Facility: [facility] Address: [address] [place] [address] Performed By: #### 5 7021-8 ####[facility] LABCLIA [id number] [place] [address] [place] Eosinophils (Bld) [#/Vol] 0.07 10*3/uL Normal <0.46 [facility] Comment on above: Order Comment: Speci men Type: BLOOD SPECIMENOrdering Facility: [facility] Address: [address] [place] [address] Performed By: #### 5 7021-8 ####[facility] LABCLIA [id number] [place] [address] [place] Eosinophils/100 WBC (Bld) 1.0 % Normal [facility] Comment on above: Order Comment: Speci men Type: BLOOD SPECIMENOrdering Facility: [facility] Address: [address] [place] [address] Performed By: #### 5 7021-8 ####[facility] LABCLIA [id number] [place] [address] [place] Erythrocyte distribution width (RBC) [Ratio] 13.2 % Normal 11.5-15.0 [facility] Comment on above: Order Comment: Speci men Type: BLOOD SPECIMENOrdering Facility: [facility] Address: [address] [place] [address] Performed By: #### 5 7021-8 ####[facility] LABCLIA [id number] [place] [address] [place] Hematocrit (Bld) [Volume fraction] 40.4 % Normal 36.0-46.0 [facility] Comment on above: Order Comment: Speci men Type: BLOOD SPECIMENOrdering Facility: [facility] Address: [address] [place] [address] Performed By: #### 5 7021-8 ####[facility] LABCLIA [id number] [place] [address] [place] Hemoglobin (Bld) [Mass/Vol] 13.1 g/dL Normal 11.5-15.5 [facility] Comment on above: Order Comment: Speci men Type: BLOOD SPECIMENOrdering Facility: [facility] Address: [address] [place] [address] Performed By: #### 5 7021-8 ####[facility] LABCLIA [id number] [place] [address] [place] Immature granulocytes (Bld) [#/Vol] 10*3/uL Normal <0.10 [facility] Comment on above: Order Comment: Speci men Type: BLOOD SPECIMENOrdering Facility: [facility] Address: [address] [place] [address] Performed By: #### 5 7021-8 ####[facility] LABCLIA [id number] [place] [address] [place] Immature granulocytes/100 WBC (Bld) 0.3 % Normal [facility] Comment on above: Order Comment: Speci men Type: BLOOD SPECIMENOrdering Facility: [facility] Address: [address] [place] [address] Performed By: #### 5 7021-8 ####[facility] LABCLIA [id number] [place] [address] [place] Lymphocytes (Bld) [#/Vol] 2.21 10*3/uL Normal 1.00-4.00 [facility] Comment on above: Order Comment: Speci men Type: BLOOD SPECIMENOrdering Facility: [facility] Address: [address] [place] [address] Performed By: #### 5 7021-8 ####[facility] LABCLIA [id number] [place] [address] [place] Lymphocytes/100 WBC (Bld) 30.8 % Normal [facility] Comment on above: Order Comment: Speci men Type: BLOOD SPECIMENOrdering Facility: [facility] Address: [address] [place] [address] Performed By: #### 5 7021-8 ####[facility] LABCLIA [id number] [place] [address] [place] MCH (RBC) [Entitic mass] 31.9 pg Normal 26.0-34.0 [facility] Comment on above: Order Comment: Speci men Type: BLOOD SPECIMENOrdering Facility: [facility] Address: [address] [place] [address] Performed By: #### 5 7021-8 ####[facility] LABCLIA [id number] [place] [address] [place] MCHC (RBC) [Mass/Vol] 32.4 g/dL Normal 30.5-36.0 [facility] Comment on above: Order Comment: Speci men Type: BLOOD SPECIMENOrdering Facility: [facility] Address: [address] [place] [address] Performed By: #### 5 7021-8 ####[facility] LABCLIA [id number] [place] [address] [place] MCV (RBC) [Entitic vol] 98.3 fL Normal 80.0-100.0 [facility] Comment on above: Order Comment: Speci men Type: BLOOD SPECIMENOrdering Facility: [facility] Address: [address] [place] [address] Performed By: #### 5 7021-8 ####[facility] LABCLIA [id number] [place] [address] [place] Monocytes (Bld) [#/Vol] 0.68 10*3/uL Normal <0.87 [facility] Comment on above: Order Comment: Speci men Type: BLOOD SPECIMENOrdering Facility: [facility] Address: [address] [place] [address] Performed By: #### 5 7021-8 ####[facility] LABCLIA [id number] [place] [address] [place] Monocytes/100 WBC (Bld) 9.5 % Normal [facility] Comment on above: Order Comment: Speci men Type: BLOOD SPECIMENOrdering Facility: [facility] Address: [address] [place] [address] Performed By: #### 5 7021-8 ####[facility] LABCLIA [id number] [place] [address] [place] Neutrophils (Bld) [#/Vol] 4.19 10*3/uL Normal 1.45-7.50 [facility] Comment on above: Order Comment: Speci men Type: BLOOD SPECIMENOrdering Facility: [facility] Address: [address] [place] [address] Performed By: #### 5 7021-8 ####[facility] LABCLIA [id number] [place] [address] [place] Neutrophils/100 WBC (Bld) 58.3 % Normal [facility] Comment on above: Order Comment: Speci men Type: BLOOD SPECIMENOrdering Facility: [facility] Address: [address] [place] [address] Performed By: #### 5 7021-8 ####[facility] LABCLIA [id number] [place] [address] [place] Nucleated RBC (Bld) [#/Vol] 10*3/uL Normal <0.01 [facility] Comment on above: Order Comment: Speci men Type: BLOOD SPECIMENOrdering Facility: [facility] Address: [address] [place] [address] Performed By: #### 5 7021-8 ####[facility] LABCLIA [id number] [place] [address] [place] Nucleated RBC/100 WBC (Bld) [Ratio] 0.0 /100 WBC Normal [facility] Comment on above: Order Comment: Speci men Type: BLOOD SPECIMENOrdering Facility: [facility] Address: [address] [place] [address] Performed By: #### 5 7021-8 ####[facility] LABCLIA [id number] [place] [address] [place] Platelet mean volume (Bld) [Entitic vol] 10.4 fL Normal 9.0-12.7 [facility] Comment on above: Order Comment: Speci men Type: BLOOD SPECIMENOrdering Facility: [facility] Address: [address] [place] [address] Performed By: #### 5 7021-8 ####[facility] LABCLIA [id number] [place] [address] [place] Platelets (Bld) [#/Vol] 194 10*3/uL Normal 150-400 [facility] Comment on above: Order Comment: Speci men Type: BLOOD SPECIMENOrdering Facility: [facility] Address: [address] [place] [address] Performed By: #### 5 7021-8 ####[facility] LABCLIA [id number] [place] [address] [place] RBC (Bld) [#/Vol] 4.11 10*6/uL Normal 3.90-5.20 [facility] Comment on above: Order Comment: Speci men Type: BLOOD SPECIMENOrdering Facility: [facility] Address: [address] [place] [address] Performed By: #### 5 7021-8 ####[facility] LABIA [id number] [place] [address] [place] WBC (Bld) [#/Vol] 7.18 10*3/uL Normal 3.70-11.00 [facility] Comment on above: Order Comment: Speci men Type: BLOOD SPECIMENOrdering Facility: [facility] Address: [address] [place] [address] Performed By: #### 5 7021-8 ####[facility] LABCLIA [id number] [place] [address] [place] CONSULT PROGon 10-17-2023 CONSULT PROG HNO ID: [id number] Author: BENNY STINSON RPh Service: Pharmacy Author [...] Pharmacist may modify dose per [facility] dose optimization consult agreement Yes 10/17/23 1300 For medications which dose is dependent on renal function, a pharmacist will monitor renal function daily and adjust doses accordingly. Any dose adjustments needed based on changes in indication will require an LIP to enter a new order. Managing Pharmacist: Benny Stinson RPh, available at: [phone] If you have any questions, please contact Pharmacy at [phone]. Estimated Creatinine Clearance: 15.1 mL/min (A) (based [...] RPh October 17, 2023 3:17 PM Normal [facility] HISTORY PHYSICALon HISTORY PHYSICAL HNO ID: [id number] Author: RICCO GARLAND MD Service: Urology Author [...] Dr. Dada Thomas MD Resident PGY-2 Urology [facility] [facility] Pager [phone] For weekend or after hours issues please [place] [phone] 11:03 AM 10/17/2023 HPI Jesús Nolan is [...] Garland MD, FACS Director, Surgical Stone Disease, [facility] [place] director information security, [facility] Pager [phone] 10/17/2023 Normal [facility] PT panel Coag (PPP)on 2023 INR Coag (PPP) [Relative time] 1.0 {INR} Normal 0.9-1.3 [facility] Comment on above: Order Comment: Speci men Type: BLOOD SPECIMENOrdering Facility: [facility] Address: [facility] [place] [address] Result Comment: Kristen min K Antagonist (VKA) Therapeutic Range: INR 2 to 3 (Target INR of 2.5) Note: For patients treated with VKA drugs, such as warfarin, the [place] [employer] 2012 Guideline recommends [...] Chest 2012, 141:7S-47S Shital RA, et al. JACC 2017, 70: 252-289 Performed By: #### 3 4528-0 ####[facility] LABIA [id number] [address] [place] PT Coag (PPP) [Time] 11.1 s Normal 9.7-13.0 [facility] Comment on above: Order Comment: Speci men Type: BLOOD SPECIMENOrdering Facility: [facility] Address: [facility] [facility] [place] [address] Performed By: #### 3 4528-0 ####[facility] LABIA [id number] [address] OF [facility] Jenaro 10-06-2023 CNPN Telephone (UR[place]UC[place]NA) JESÚS NOLAN ([id number]) 1935 F Date Time Provider Department 10/06/23 LETY GARCIA During your visit today, we recorded the following information about you: Lety Garcia RN 10/06/2023 12:04 PM Signed ----- Message from Fanny Nagel Induction Heat Treater II sent at 10/06/2023 10:22 AM EST ----- Regarding: discuss abx for UTI prior to surgery Contact: Wa! Pt's daughter, Maranda, has a few questions and would like to discuss abx for UTI prior to surgery w/ Dr. Garland on 10/18 if someone could please reach out to her when possible. Thanks so much, Lety Alvarado, MARYJANE 10/06/2023 12:18 PM Signed Returned call to speak with daughter. Daughter explained that patient had new urine done this week with her [facility] nephrology team, showing a UTI. They wanted [...] Date Reviewed: 09/23/2023 Reviewed by: Stefanie Ocampo APRN.CONTRACT LOADER, DNP - Fully Assessed Reason for Visit: [...] Encounter Status:Closed by LETY GARCIA [facility]07/23 [facility] JES[facility]S NOLAN ([id number]) 1935 F Date Time Provider Department 09/29/23 [...] Informed her that this was sent to [facility] in [place] and patient should be sure to begin about 1 week prior and no sooner as it would select for resistant bacteria. Patients daughter voiced understanding. Provided office number if questions arise. Moni Chaudhari RN October 01, 2023 9:29 AM Allergies As of Date: 09/29/2023 (No Known Allergies) Date Reviewed: 09/23/2023 Reviewed by: Stefanie Ocampo APRN.CONTRACT LOADER, DNP - Fully Assessed Reason for Visit: [...] 09/23/2023 Encounter Status:Closed by MONI CHAUDHARI on 1/3/24 Normal [facility] Bacteria Ur Culton 3 Bacteria identified [...] , Intermediate >32 , Resistant >64 Abnormal [facility] Comment on above: Performed By: #### 6 30-4 ####[facility] LABCLIA [id number] [place] [address] [place] CBC W Auto Differential pane l (Bld)on 09-23-2023 Basophils (Bld) [#/Vol] 10*3/uL Normal <0.11 [facility] Comment on above: Order Comment: Speci men Type: BLOOD SPECIMENOrdering Facility: [facility] Address: [address] [place] [address] Performed By: #### 5 7021-8 ####[facility] LABIA [id number] [place] [address] [place] Basophils/100 WBC (Bld) 0.3 % Normal [facility] Comment on above: Order Comment: Speci men Type: BLOOD SPECIMENOrdering Facility: [facility] Address: [address] [place] [address] Performed By: #### 5 7021-8 ####[facility] LABIA [id number] [place] [address] [place] Differential cell count method Nom (Bld) Auto Normal [facility] Comment on above: Order Comment: Speci men Type: BLOOD SPECIMENOrdering Facility: [facility] Address: [address] [place] [address] Performed By: #### 5 7021-8 ####[facility] LABIA [id number] [place] [address] [place] Eosinophils (Bld) [#/Vol] 0.16 10*3/uL Normal <0.46 [facility] Comment on above: Order Comment: Speci men Type: BLOOD SPECIMENOrdering Facility: [facility] Address: [address] [place] [address] Performed By: #### 5 7021-8 ####[facility] LABCLIA [id number] [place] [address] [place] Eosinophils/100 WBC (Bld) 2.2 % Normal [facility] Comment on above: Order Comment: Speci men Type: BLOOD SPECIMENOrdering Facility: [facility] Address: [address] [place] [address] Performed By: #### 5 7021-8 ####[facility] LABCLIA [id number] [place] [address] [place] Erythrocyte distribution width (RBC) [Ratio] 14.0 % Normal 11.5-15.0 [facility] Comment on above: Order Comment: Speci men Type: BLOOD SPECIMENOrdering Facility: [facility] Address: [address] [place] [address] Performed By: #### 5 7021-8 ####[facility] LABIA [id number] [place] [address] [place] Hematocrit (Bld) [Volume fraction] 39.8 % Normal 36.0-46.0 [facility] Comment on above: Order Comment: Speci men Type: BLOOD SPECIMENOrdering Facility: [facility] Address: [address] [place] [address] Performed By: #### 5 7021-8 ####[facility] LABCLIA [id number] [place] [address] [place] Hemoglobin (Bld) [Mass/Vol] 12.6 g/dL Normal 11.5-15.5 [facility] Comment on above: Order Comment: Speci men Type: BLOOD SPECIMENOrdering Facility: [facility] Address: [address] [place] [address] Performed By: #### 5 7021-8 ####[facility] LABCLIA [id number] [place] [address] [place] Immature granulocytes (Bld) [#/Vol] 10*3/uL Normal <0.10 [facility] Comment on above: Order Comment: Speci men Type: BLOOD SPECIMENOrdering Facility: [facility] Address: [address] [place] [address] Performed By: #### 5 7021-8 ####[facility] LABCLIA [id number] [place] [address] [place] Immature granulocytes/100 WBC (Bld) 0.1 % Normal [facility] Comment on above: Order Comment: Speci men Type: BLOOD SPECIMENOrdering Facility: [facility] Address: [address] [place] [address] Performed By: #### 5 7021-8 ####[facility] LABCLIA [id number] [place] [address] [place] Lymphocytes (Bld) [#/Vol] 2.33 10*3/uL Normal 1.00-4.00 [facility] Comment on above: Order Comment: Speci men Type: BLOOD SPECIMENOrdering Facility: [facility] Address: [address] [place] [address] Performed By: #### 5 7021-8 ####[facility] LABCLIA [id number] [place] [address] [place] Lymphocytes/100 WBC (Bld) 31.4 % Normal [facility] Comment on above: Order Comment: Speci men Type: BLOOD SPECIMENOrdering Facility: [facility] Address: [address] [place] [address] Performed By: #### 5 7021-8 ####[facility] LABCLIA [id number] [place] [address] [place] MCH (RBC) [Entitic mass] 31.7 pg Normal 26.0-34.0 [facility] Comment on above: Order Comment: Speci men Type: BLOOD SPECIMENOrdering Facility: [facility] Address: [address] [place] [address] Performed By: #### 5 7021-8 ####[facility] LABCLIA [id number] [place] [address] [place] MCHC (RBC) [Mass/Vol] 31.7 g/dL Normal 30.5-36.0 [facility] Comment on above: Order Comment: Speci men Type: BLOOD SPECIMENOrdering Facility: [facility] Address: [address] [place] [address] Performed By: #### 5 7021-8 ####[facility] LABCLIA [id number] [place] [address] [place] MCV (RBC) [Entitic vol] 100.3 fL High 80.0-100.0 [facility] Comment on above: Order Comment: Speci men Type: BLOOD SPECIMENOrdering Facility: [facility] Address: [address] [place] [address] Performed By: #### 5 7021-8 ####[facility] LABIA [id number] [place] [address] [place] Monocytes (Bld) [#/Vol] 0.77 10*3/uL Normal <0.87 [facility] Comment on above: Order Comment: Speci men Type: BLOOD SPECIMENOrdering Facility: [facility] Address: [address] [place] [address] Performed By: #### 5 7021-8 ####[facility] LABCLIA [id number] [place] [address] [place] Monocytes/100 WBC (Bld) 10.4 % Normal [facility] Comment on above: Order Comment: Speci men Type: BLOOD SPECIMENOrdering Facility: [facility] Address: [address] [place] [address] Performed By: #### 5 7021-8 ####[facility] LABCLIA [id number] [place] [address] [place] Neutrophils (Bld) [#/Vol] 4.14 10*3/uL Normal 1.45-7.50 [facility] Comment on above: Order Comment: Speci men Type: BLOOD SPECIMENOrdering Facility: [facility] Address: [address] [place] [address] Performed By: #### 5 7021-8 ####[facility] LABCLIA [id number] [place] [address] [place] Neutrophils/100 WBC (Bld) 55.6 % Normal [facility] Comment on above: Order Comment: Speci men Type: BLOOD SPECIMENOrdering Facility: [facility] Address: [address] [place] [address] Performed By: #### 5 7021-8 ####[facility] LABCLIA [id number] [place] [address] [place] Nucleated RBC (Bld) [#/Vol] 10*3/uL Normal <0.01 [facility] Comment on above: Order Comment: Speci men Type: BLOOD SPECIMENOrdering Facility: [facility] Address: [address] [place] [address] Performed By: #### 5 7021-8 ####[facility] LABCLIA [id number] [place] [address] [place] Nucleated RBC/100 WBC (Bld) [Ratio] 0.0 /100 WBC Normal [facility] Comment on above: Order Comment: Speci men Type: BLOOD SPECIMENOrdering Facility: [facility] Address: [address] [place] [address] Performed By: #### 5 7021-8 ####[facility] LABCLIA [id number] [place] [address] [place] Platelet mean volume (Bld) [Entitic vol] 10.3 fL Normal 9.0-12.7 [facility] Comment on above: Order Comment: Speci men Type: BLOOD SPECIMENOrdering Facility: [facility] Address: [address] [place] [address] Performed By: #### 5 7021-8 ####[facility] LABCLIA [id number] [place] [address] [place] Platelets (Bld) [#/Vol] 228 10*3/uL Normal 150-400 [facility] Comment on above: Order Comment: Speci men Type: BLOOD SPECIMENOrdering Facility: [facility] Address: [address] [place] [address] Performed By: #### 5 7021-8 ####[facility] LABCLIA [id number] [place] [address] [place] RBC (Bld) [#/Vol] 3.97 10*6/uL Normal 3.90-5.20 [facility] Comment on above: Order Comment: Speci men Type: BLOOD SPECIMENOrdering Facility: [facility] Address: [address] [place] [address] Performed By: #### 5 7021-8 ####[facility] LABIA [id number] [place] [address] [place] WBC (Bld) [#/Vol] 7.43 10*3/uL Normal 3.70-11.00 [facility] Comment on above: Order Comment: Speci men Type: BLOOD SPECIMENOrdering Facility: [facility] Address: [address] [place] [address] Performed By: #### 5 7021-8 ####[facility] LABCLIA [id number] [place] [address] [place] CONFIRM BLOOD TYPEon 12-28-2 023 ABO A Normal [facility] Comment on above: Order Comment: Speci men Type: BLOOD SPECIMENOrdering Facility: [facility] Address: [address] [place] [address] Performed By: #### C ONABO ####[facility] BLOOD BANKCLIA [id number] [address] [id number] [address] [place] Rh Nom (Bld) Positive Normal [facility] Comment on above: Order Comment: Speci men Type: BLOOD SPECIMENOrdering Facility: [facility] Address: [address] [place] [address] Performed By: #### C ONABO ####[facility] BANKIA [id number] [address] [address] [place] Comprehensive metabolic 2000 panelon 09-23-2023 Albumin [Mass/Vol] 4.3 g/dL Normal 3.9-4.9 [facility] Comment on above: Order Comment: Speci men Type: BLOOD SPECIMENOrdering Facility: [facility] Address: [address] [place] [address] Performed By: #### 2 4323-8 ####[facility] LABCLIA [id number] [place] [address] [place] ALP [Catalytic activity/Vol] 96 U/L Normal 34-123 [facility] Comment on above: Order Comment: Speci men Type: BLOOD SPECIMENOrdering Facility: [facility] Address: [address] [place] [address] Performed By: #### 2 4323-8 ####[facility] LABCLIA [id number] [place] [address] [place] ALT [Catalytic activity/Vol] 17 U/L Normal 7-38 [facility] Comment on above: Order Comment: Speci men Type: BLOOD SPECIMENOrdering Facility: [facility] Address: [address] [place] [address] Performed By: #### 2 4323-8 ####[facility] LABCLIA [id number] [place] [address] [place] Anion gap [Moles/Vol] 15 mmol/L Normal 9-18 [facility] Comment on above: Order Comment: Speci men Type: BLOOD SPECIMENOrdering Facility: [facility] Address: [address] [place] [address] Performed By: #### 2 4323-8 ####[facility] LABCLIA [id number] [place] [address] [place] AST [Catalytic activity/Vol] 22 U/L Normal 13-35 [facility] Comment on above: Order Comment: Speci men Type: BLOOD SPECIMENOrdering Facility: [facility] Address: [address] [place] [address] Performed By: #### 2 4323-8 ####[facility] LABCLIA [id number] [place] [address] [place] Bilirubin [Mass/Vol] 0.3 mg/dL Normal 0.2-1.3 [facility] Comment on above: Order Comment: Speci men Type: BLOOD SPECIMENOrdering Facility: [facility] Address: [address] [place] [address] Performed By: #### 2 4323-8 ####[facility] LABCLIA [id number] [place] [address] [place] Calcium [Mass/Vol] 9.4 mg/dL Normal 8.5-10.2 [facility] Comment on above: Order Comment: Speci men Type: BLOOD SPECIMENOrdering Facility: [facility] Address: [address] [place] [address] Performed By: #### 2 4323-8 ####[facility] LABCLIA [id number] [place] [address] [place] Chloride [Moles/Vol] 103 mmol/L Normal 97-105 [facility] Comment on above: Order Comment: Speci men Type: BLOOD SPECIMENOrdering Facility: [facility] Address: [address] [place] [address] Performed By: #### 2 4323-8 ####[facility] LABCLIA [id number] [place] [address] [place] CO2 [Moles/Vol] 26 mmol/L Normal 22-30 [facility] Comment on above: Order Comment: Speci men Type: BLOOD SPECIMENOrdering Facility: [facility] Address: [address] [place] [address] Performed By: #### 2 4323-8 ####[facility] LABIA [id number] [place] [address] [place] Creatinine [Mass/Vol] 2.05 mg/dL High 0.58-0.96 [facility] Comment on above: Order Comment: Speci men Type: BLOOD SPECIMENOrdering Facility: [facility] Address: [address] [place] [address] Performed By: #### 2 4323-8 ####[facility] LABIA [id number] [place] [address] [place] Creatinine and Glomerular filtration rate.predicted panel (S/P/Bld) 23 mL/min/1.73m??? Low >=60 [facility] Comment on above: Order Comment: Speci men Type: BLOOD SPECIMENOrdering Facility: [facility] Address: [address] [place] [address] Result Comment: Melissa mated Glomerular Filtration Rate [...] actual GFR. Performed By: #### 2 4323-8 ####[facility] LABIA [id number] [place] [address] [place] Glucose [Mass/Vol] 107 mg/dL High 74-99 [facility] Comment on above: Order Comment: Speci men Type: BLOOD SPECIMENOrdering Facility: [facility] Address: [address] [place] [address] Result Comment: The [place] Diabetes Association (ADA) provides guidance for cutoff [...] Standards of Medical Care in Diabetes 2016, [place] [employer]. Diabetes Care. 2016.39(Suppl 1). Performed By: #### 2 4323-8 ####[facility] LABCLIA [id number] [place] [address] [place] Potassium [Moles/Vol] 4.0 mmol/L Normal 3.7-5.1 [facility] Comment on above: Order Comment: Speci men Type: BLOOD SPECIMENOrdering Facility: [facility] Address: [address] [place] [address] Performed By: #### 2 432-8 ####[facility] LABIA [id number] [place] [address] [place] Protein [Mass/Vol] 7.0 g/dL Normal 6.3-8.0 [facility] Comment on above: Order Comment: Speci men Type: BLOOD SPECIMENOrdering Facility: [facility] Address: [address] [place] [address] Performed By: #### 2 4323-8 ####[facility] LABCLIA [id number] [place] [address] [place] Sodium [Moles/Vol] 144 mmol/L Normal 136-144 [facility] Comment on above: Order Comment: Speci men Type: BLOOD SPECIMENOrdering Facility: [facility] Address: [address] [place] [address] Performed By: #### 2 4323-8 ####[facility] LABCLIA [id number] [place] [address] [place] Urea nitrogen [Mass/Vol] 30 mg/dL High 7-21 [facility] Comment on above: Order Comment: Speci men Type: BLOOD SPECIMENOrdering Facility: [facility] Address: [address] [place] [address] [place] [address] Performed By: #### 2 4323-8 ####[facility] LABCLIA [id number] ASHANTI RODRIGUES [id number] ECG COMPLETEon 09-23-2023 ECG COMPLETE Ventricular Rate : 6 2 BPM Atrial Rate : 62 BPM P-R Interval : 202 ms QRS Duration : 90 ms Q-T Interval : 424 ms QTC Calculation(Bazett) : 430 ms Calculated P [employer] : 100 degrees Calculated R [employer] [place] : -29 degrees Calculated T [employer] [place] : 17 degrees NORMAL SINUS RHYTHM LEFT VENTRICULAR HYPERTROPHY POSSIBLE ANTEROSEPTAL MYOCARDIAL INFARCTION , 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 ECG Confirmed by MITZI PACHECO MD () on 10/13/2023 8:12:00 AM NAME : JESÚS NOLAN PID : [id number] : 1935 Gender : Female Race : ORD : [id number] Procedure Date : Sep 23 2023 15:23:33 [...] OCAMPO Acquired by : VERONIKA CONWAY Normal [facility] ECG COMPLETE Ventricular Rate : 7 5 BPM Atrial Rate : 75 BPM QRS Duration : 108 ms Q-T Interval : 410 ms QTC Calculation(Bazett) : 457 ms Calculated R [employer] [place] : -32 degrees Calculated T [employer] : 97 degrees 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 , 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 ECG Reconfirmed by KIAN CLARK MD ([id number]) on 09/23/2023 8:45:27 PM NAME : JESÚS NOLAN PID : [id number] : 1935 Gender : Female Race : ORD : [id number] Procedure Date : Sep 23 2023 12:56:29 Edit Date : Sep 23 2023 20:45:28 Diagnosis: 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 , 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 ECG Reconfirmed by KIAN CLARK MD ([id number]) on 09/23/2023 8:45:27 PM Test Reason : Location : 119 : A17 Overread By : KIAN CLARK MD Edited By : KIAN CLARK MD Referred By : , Acquired by : SANTI TAVERA [facility] HISTORY PHYSICALon HISTORY PHYSICAL HNO ID: [id number] Author: STEFANIE OCAMPO APRN.CONTRACT LOADER, DNP Service: ? Author Type: Nurse Practitioner [...] 35 kg/m2 Non-male patient STOP-Bang Score: 1 [id number] Score: Hypertension history: Yes [id number] Score: 1 ARISCAT Score: Age: >80 Preoperative [...] fevers. Neurological: No history of TIA's, stroke, M[employer] M[employer] WORKER tumor, impaired sensorium, hemiplegia, paraplegia or quadraplegia. No neurological symptoms or problems. Respiratory: No history of current cough or dyspnea, or pneumonia in the past 6 weeks. No history of respiratory/pulmonary symptoms or problems. Cardiovascular: Positive for: hypertension (on rx) Negative for: abdominal aortic aneurysm, AICD/PPM, anticoagulation (more content not included)... Normal [facility] TYPE AND SCREEN,30 DAYon ABO A Normal [facility] Comment on above: Order Comment: Speci men Type: BLOOD SPECIMENOrdering Facility: [facility] Address: [address] [place] [address] Performed By: #### T SCR30 ####[facility] BLO[facility] BANKCLIA [id number] [place] [address] [place] HISTORICAL AB SCR STATUS Negative Normal [facility] Comment on above: Order Comment: Speci men Type: BLOOD SPECIMENOrdering Facility: [facility] Address: [address] [place] [address] Performed By: #### T SCR30 ####[facility] BLOOD BANKCLIA [id number] [place] [address] [place] Rh Nom (Bld) Positive Normal [facility] Comment on above: Order Comment: Speci men Type: BLOOD SPECIMENOrdering Facility: [facility] Address: [address] [place] [address] Performed By: #### T SCR30 ####[facility] BLOOD BANKCLIA [id number] [address] OF [facility] Consultation Noteon 09-12-20 23 Consultation Note [id number]#1.0 0TIFF Normal [facility] Bacteria Ur Culton 3 Bacteria identified Cx Nom (U) CULTURE, URINE: No growth (<1,000 CFU/ml) Normal [facility] Comment on above: Performed By: #### 6 30-4 ####[facility] LABCLIA [id number] [address] CNOVon 09-07-2023 CNOV Office Visit (UROLMN ) JESÚS NOLAN ([id number]) 1935 F Date Time Provider Department 09/07/23 [...] based on size, location, hounsfield units and xkpg-io-ntlgq distance: 0% 3. Ureteroscopy - risks of [...] with more than 50% of the total wncy-kp-uyke time of the visit devoted to patient counseling/coordinatio n of care. Ricco Garland MD, FACS Director, [facility], [facility] director information security, [facility] Pager [phone] 09/07/2023 Referring Provider: SELF [200] Allergies As of Date: 09/07/2023 (No Known Allergies) Date Reviewed: 09/07/2023 Reviewed by: Karen Calvillo OCCA - Fully Assessed Primary Visit Diagnosis:Staghorn calculus [N20.0] Other Visit Diagnoses:Abnormal urinalysis [R82.90] History of recurrent UTIs [Z87.440] Essential hypertension [I10] Constipation, unspecified constipation type [K59.00] Arthritis [M19.90] Status post hip surgery [Z98.890] Order(s):URINE CULTURE [SQURCUL] Order #: [id number]. #:[id number] estradiol (ESTRACE) 0.01 % (0.1 mg/gram) vaginal creamUse 1 g vaginally one time a week.Disp: 42 gRfl: 1 Prescriptions (more content not included)... Normal [facility] URINALYSIS, REFLEX MICROSCOP ICon 09-07-2023 Bacteria LM.HPF (Urine sed) [#/Area] Few Abnormal None Seen [facility] Comment on above: Order Comment: Speci men Type: URINE SPECIMENOrdering Facility: [facility] Address: [address] [place] [address] Performed By: #### L [id number] ####[facility] LABCLIA [id number] [place] [address] [place] Bilirubin Ql (U) Negative Normal Negative [facility] Comment on above: Order Comment: Speci men Type: URINE SPECIMENOrdering Facility: [facility] Address: [address] [place] [address] Performed By: #### L [id number] ####[facility] LABCLIA [id number] [place] [address] [place] Clarity (Unsp spec) Clear Normal Clear [facility] Comment on above: Order Comment: Speci men Type: URINE SPECIMENOrdering Facility: [facility] Address: [address] [place] [address] Performed By: #### L [id number] ####[facility] LABCLIA [id number] [place] [address] [place] Color (U) Light Yellow Normal Yellow [facility] Comment on above: Order Comment: Speci men Type: URINE SPECIMENOrdering Facility: [facility] Address: [address] [place] [address] Performed By: #### L [id number] ####[facility] LABIA [id number] [place] [address] [place] Epithelial cells LM.HPF (Urine sed) [#/Area] Few Normal [facility] Comment on above: Order Comment: Speci men Type: URINE SPECIMENOrdering Facility: [facility] Address: [address] [place] [address] Performed By: #### L [id number] ####[facility] LABIA [id number] [place] [address] [place] Glucose Test strip (U) [Mass/Vol] Negative Normal Trace, Negative [facility] Comment on above: Order Comment: Speci men Type: URINE SPECIMENOrdering Facility: [facility] Address: [address] [place] [address] Performed By: #### L [id number] ####[facility] LABCLIA [id number] [place] [address] [place] Hemoglobin Ql (U) Negative Normal Negative, Trace [facility] Comment on above: Order Comment: Speci men Type: URINE SPECIMENOrdering Facility: [facility] Address: [address] [place] [address] Performed By: #### L [id number] ####[facility] LABCLIA [id number] [place] [address] [place] Hyaline casts (Urine sed) [#/Area] 1-3 /LPF Abnormal 0 /LPF [facility] Comment on above: Order Comment: Speci men Type: URINE SPECIMENOrdering Facility: [facility] Address: [address] [place] [address] Performed By: #### L [id number] ####[facility] LABCLIA [id number] [place] [address] [place] Ketones Ql (U) Negative Normal Negative, Trace [facility] Comment on above: Order Comment: Speci men Type: URINE SPECIMENOrdering Facility: [facility] Address: [address] [place] [address] Performed By: #### L [id number] ####[facility] LABCLIA [id number] [place] [address] [place] Leukocyte esterase Test strip Ql (U) 500 Dorian/uL Abnormal Negative, 25 Dorian/uL [facility] Comment on above: Order Comment: Speci men Type: URINE SPECIMENOrdering Facility: [facility] Address: [address] [place] [address] Performed By: #### L [id number] ####[facility] LABCLIA [id number] [place] [address] [place] Nitrite Ql (U) Negative Normal Negative [facility] Comment on above: Order Comment: Speci men Type: URINE SPECIMENOrdering Facility: [facility] Address: [address] [place] [address] Performed By: #### L [id number] ####[facility] LABIA [id number] [place] [address] [place] pH (U) 5.5 [pH] Normal 5.0-8.0 [facility] Comment on above: Order Comment: Speci men Type: URINE SPECIMENOrdering Facility: [facility] Address: [address] [place] [address] Performed By: #### L [id number] ####[facility] LABIA [id number] [place] [address] [place] Protein (U) [Mass/Vol] Trace Normal Trace , Negative [facility] Comment on above: Order Comment: Speci men Type: URINE SPECIMENOrdering Facility: [facility] Address: [address] [place] [address] Performed By: #### L [id number] ####[facility] LABIA [id number] [place] [address] [place] RBC LM.HPF (Urine sed) [#/Area] 3-5 /HPF Abnormal 0-3 /HPF [facility] Comment on above: Order Comment: Speci men Type: URINE SPECIMENOrdering Facility: [facility] Address: [address] [place] [address] Performed By: #### L [id number] ####[facility] LABIA [id number] [place] [address] [place] Specific gravity (U) [Rel density] 1.014 Normal 1.005-1.030 [facility] Comment on above: Order Comment: Speci men Type: URINE SPECIMENOrdering Facility: [facility] Address: [address] [place] [address] Performed By: #### L [id number] ####[facility] LABCLIA [id number] [place] [address] [place] Urobilinogen Ql (U) Negative Normal Negative [facility] Comment on above: Order Comment: Speci men Type: URINE SPECIMENOrdering Facility: [facility] Address: [address] [place] [address] Performed By: #### L [id number] ####[facility] LABCLIA [id number] [place] [address] [place] WBC LM.HPF (Urine sed) [#/Area] /[HPF] Abnormal 0-5 /HPF [facility] Comment on above: Order Comment: Speci men Type: URINE SPECIMENOrdering Facility: [facility] Address: [address] [place] [address] Performed By: #### L [id number] ####[facility] LABIA [id number] [place] [address] [place] Consultation Noteon 09-06-20 Consultation Note [id number]#1.0 0TIFF Normal [facility] Consultation Noteon 09-03-20 Consultation Note [id number]#1.0 0TIFF Normal [facility] Lab Reportson 09-03-2023 Lab Reports [id number]#1.0 0TIFF Normal [facility] Basic Metabolic Panelon Anion gap [Moles/Vol] 11.2 mmol/L Normal 6.0-15.0 [facility] Comment on above: Performed By: #### EDITA Warren CBCNO ####[facility] [address] [place] [address] [facility] Calcium [Mass/Vol] 8.0 mg/dL Low 8.6-10.3 [facility] Comment on above: Performed By: #### EDITA Warren CBCNO ####[facility] [place] [address] [facility] Chloride [Moles/Vol] 110 mmol/L High 98-107 [facility] Comment on above: Performed By: #### EDITA Warren CBCNO ####[place] [address] [place] [address] [facility] CO2 [Moles/Vol] 25.2 mmol/L Normal 21.0-31.0 [facility] Comment on above: Performed By: #### EDITA Warren CBCNO ####[place] [address] [place] [id number] [facility] Creatinine [Mass/Vol] 2.30 mg/dL High 0.60-1.20 [facility] Comment on above: Performed By: #### EDITA Warren CBCNO ####[place] [address] [place] [id number] [facility] Creatinine Clr Calc Pharmacy 14.54 [facility] Comment on above: Performed By: #### EDITA Warren CBCNO ####[place] [address] [place] [id number] [place] GFR/1.73 sq M.predicted MDRD (S/P/Bld) [Vol rate/Area] 20.194 mL/min/{1.73_m2} [facility] Comment on above: Performed By: #### EDITA Warren CBCNO ####[place] [address] [place] [id number] [facility] Glucose [Mass/Vol] 109 mg/dL High 70-100 [facility] Comment on above: Result Comment: [facility] Glucose Reference Range is dependent on time and content of last meal. Glucose of more than 200 mg/dL in a nonstressed, ambulatory subject supports the diagnosis of Diabetes Mellitus. ADA recommended reference range Performed By: #### EDITA Warren CBCNO ####[place] [address] [place] [id number] [facility] Potassium [Moles/Vol] 4.4 mmol/L Normal 3.5-5.1 [facility] Comment on above: Performed By: #### M G, BMP, CBCNO ####[place] [address] [place] [id number] [facility] Sodium [Moles/Vol] 142 mmol/L Normal 136-145 [facility] Comment on above: Performed By: #### EDITA Warren, CBCNO ####[place] [address] [place] [id number] [facility] Urea nitrogen [Mass/Vol] 31 mg/dL High 7-25 [facility] Comment on above: Performed By: #### EDITA Warren, CBCNO ####[place] [id number] [facility] Hemogram CBC Without Diffon 09-02-2023 Erythrocyte distribution width (RBC) [Ratio] 14.1 % Normal 11.9-15.3 [facility] Comment on above: Performed By: #### EDITA Warren, CBCNO ####[address] Hematocrit (Bld) [Volume fraction] 32.6 % Low 34.0-46.4 [facility] Comment on above: Performed By: #### EDITA Warren, CBCNO ####[address] Hemoglobin (Bld) [Mass/Vol] 10.9 g/dL Low 11.8-15.4 [facility] Comment on above: Performed By: #### EDITA Warren, CBCNO ####[place] [id number] [facility] MCH (RBC) [Entitic mass] 31.6 pg Normal 24.7-34.3 [facility] Comment on above: Performed By: #### EDITA Warren, CBCNO ####[place] [id number] [facility] MCV (RBC) [Entitic vol] 94.7 fL Normal 80-100 F [facility] Comment on above: Performed By: #### EDITA Warren, CBCNO ####[place] [id number] [facility] Mean Corpuscular HGB Conc 33.4 g/dL Normal 32.0-35.0 [facility] Comment on above: Performed By: #### EDITA Warren, CBCNO ####[address] Platelet mean volume (Bld) [Entitic vol] 8.8 fL Normal 6.3-10.7 [facility] Comment on above: Result Comment: PERF ORMED BY: [facility] [address] [place] [address] PATHOLOGIST FIRE DEPARTMENT BATTALION CHIEF BARBARA MUNOZ M.D. Performed By: #### EDITA Warren, CBCNO ####[address] Platelets (Bld) [#/Vol] 192 10*3/uL Normal 150-450 [facility] Comment on above: Performed By: #### EDITA Warren, CBCNO ####[address] RBC (Bld) [#/Vol] 3.44 10*6/uL Low 3.60-5.00 [facility] Comment on above: Performed By: #### EDITA Warren, CBCNO ####[address] WBC (Bld) [#/Vol] 7.8 10*3/uL Normal 3.8-11.6 [facility] Comment on above: Performed By: #### EDITA Warren, CBCNO ####[place] [id number] [facility] Magnesiumon 09-02-2023 Magnesium [Mass/Vol] 2.5 mg/dL Normal 1.9-2.7 [facility] Comment on above: Result Comment: PERF ORMED BY: [facility] [address] [place] [address] PATHOLOGIST FIRE DEPARTMENT BATTALION CHIEF BARBARA MUNOZ M.D. Performed By: #### EDITA Warren, CBCNO ####[place] [id number] [facility] Ammoniaon 09-01-2023 Ammonia (P) [Moles/Vol] 23 umol/L Normal 11-35 F [facility] Comment on above: Result Comment: PERF ORMED BY: [facility] [address] [place] [id number] PATHOLOGIST FIRE DEPARTMENT BATTALION CHIEF BARBARA MUNOZ M.D. Performed By: #### A MM ####[place] [id number] [facility] Basic Metabolic Panelon 12- Anion gap [Moles/Vol] 11.9 mmol/L Normal 6.0-15.0 [facility] Comment on above: Performed By: #### V [id number], MG, CBC, BMP, TSH3 ####[place] [id number] [facility] Calcium [Mass/Vol] 8.4 mg/dL Low 8.6-10.3 [facility] Comment on above: Performed By: #### V [id number], MG, CBC, BMP, TSH3 ####[address] [address] [facility] Chloride [Moles/Vol] 111 mmol/L High 98-107 [facility] Comment on above: Performed By: #### V [id number], MG, CBC, BMP, TSH3 ####[address] [address] [facility] CO2 [Moles/Vol] 23.2 mmol/L Normal 21.0-31.0 [facility] Comment on above: Performed By: #### V [id number], MG, CBC, BMP, TSH3 ####[address] [address] [facility] Creatinine [Mass/Vol] 2.45 mg/dL High 0.60-1.20 [facility] Comment on above: Performed By: #### V [id number], MG, CBC, BMP, TSH3 ####[place] [id number] [facility] Creatinine Clr Calc Pharmacy 13.65 [facility] Comment on above: Performed By: #### V [id number], MG, CBC, BMP, TSH3 ####[place] [id number] [facility] GFR/1.73 sq M.predicted MDRD (S/P/Bld) [Vol rate/Area] 18.720 mL/min/{1.73_m2} Normal [facility] Comment on above: Performed By: #### V [id number], MG, CBC, BMP, TSH3 ####[place] [id number] [facility] Glucose [Mass/Vol] 90 mg/dL Normal 70-100 [facility] Comment on above: Result Comment: [facility] Glucose Reference Range is dependent on time and content of last meal. Glucose of more than 200 mg/dL in a nonstressed, ambulatory subject supports the diagnosis of Diabetes Mellitus. ADA recommended reference range Performed By: #### V [id number], MG, CBC, BMP, TSH3 ####[place] [id number] [facility] Potassium [Moles/Vol] 4.1 mmol/L Normal 3.5-5.1 [facility] Comment on above: Performed By: #### V [id number], MG, CBC, BMP, TSH3 ####[place] [id number] [facility] Sodium [Moles/Vol] 142 mmol/L Normal 136-145 [facility] Comment on above: Performed By: #### V [id number], MG, CBC, BMP, TSH3 ####[place] [id number] [facility] Urea nitrogen [Mass/Vol] 28 mg/dL High 7-25 [facility] Comment on above: Performed By: #### V [id number], MG, CBC, BMP, TSH3 ####[place] [id number] [facility] Blood Cultureon 09-01-2023 Bacteria identified Cx Nom (Bld) PT IS BEING MEDICATED NO GROWTH 5 DAYS PERFORMED BY: [place] [address] PATHOLOGIST FIRE DEPARTMENT BATTALION CHIEF BARBARA MUNOZ M.D. [facility] Comment on above: Performed By: #### L JUVENAL FUNES #### [address] Bacteria identified Cx Nom (Bld) PT IS BEING MEDICATED NO GROWTH 5 DAYS PERFORMED BY: [place] [address] PATHOLOGIST FIRE DEPARTMENT BATTALION CHIEF BARBARA MUNOZ M.D. [facility] Comment on above: Performed By: #### L JUVENAL FUNES #### [address] abdomen pelvis wo conon 1 11-02-2022 CT abdomen pelvis wo con [facility] Main [place] [address] [place] [address] CT Scan Report Signed Patient: Jesús Nolan MR#: [id number] 34 : 1935 Acct:[id number] Age/Sex: 88 / F ADM Date: 08/31/23 Loc: Room: [address] [place] [address] Type: ADM IN Attending Dr: Riky Bundy [...] Isabel Vega M.D.09/01/2023 6:29 AM Dictation Location: [place] [address] Transcribed By: [facility] 09/01/23628 Dictated By: Isabel Vega MD 09/01/23622 Signed By: 09/01/23628 [facility] CT head/brain wo [facility] 09-01 CT head/brain wo [facility] Main [place] [address] [place] [address] CT Scan Report Signed Patient: Jesús Nolan MR#: [id number] 34 : 1935 Acct:[id number] Age/Sex: 88 / F ADM Date: 08/31/23 Loc: Room: [address] [place] [address] Type: ADM IN Attending Dr: Riky Bundy [...] Isabel Vega M.D.09/01/2023 6:14 AM Dictation Location: [place] [address] Transcribed By: [facility] 09/01/23613 Dictated By: Isabel Vega MD 09/01/23611 Signed By: 09/01/23613 Normal [facility] Complete Blood Count Auto Di ffon 09-01-2023 Basophils (Bld) [#/Vol] 0.0 10*3/uL Normal 0.0-0.2 [facility] Comment on above: Result Comment: PERF ORMED BY: [facility] [address] [facility] [place] [address] PATHOLOGIST FIRE DEPARTMENT BATTALION CHIEF BARBARA MUNOZ M.D. Performed By: #### V [id number], MG, CBC, BMP, TSH3 ####[facility] [id number] [place] [address] [facility] Basophils/100 WBC (Bld) 0.3 % Normal . F [facility] Comment on above: Performed By: #### V [id number], MG, CBC, BMP, TSH3 ####[facility] [id number] [place] [address] [facility] Eosinophils (Bld) [#/Vol] 0.1 10*3/uL Normal 0.0-0.45 [facility] Comment on above: Performed By: #### V [id number], MG, CBC, BMP, TSH3 ####[address] Eosinophils/100 WBC (Bld) 1.6 % Normal . [facility] Comment on above: Performed By: #### V [id number], MG, CBC, BMP, TSH3 ####[address] Erythrocyte distribution width (RBC) [Ratio] 14.0 % Normal 11.9-15.3 [facility] Comment on above: Performed By: #### V [id number], MG, CBC, BMP, TSH3 ####[address] Hematocrit (Bld) [Volume fraction] 35.9 % Normal 34.0-46.4 [facility] Comment on above: Performed By: #### V [id number], MG, CBC, BMP, TSH3 ####[address] Hemoglobin (Bld) [Mass/Vol] 11.9 g/dL Normal 11.8-15.4 [facility] Comment on above: Performed By: #### V [id number], MG, CBC, BMP, TSH3 ####[address] Lymphocytes (Bld) [#/Vol] 1.5 10*3/uL Normal 1.00-4.8 [facility] Comment on above: Performed By: #### V [id number], MG, CBC, BMP, TSH3 ####[address] Lymphocytes/100 WBC (Bld) 19.5 % Normal . [facility] Comment on above: Performed By: #### V [id number], MG, CBC, BMP, TSH3 ####[address] MCH (RBC) [Entitic mass] 31.2 pg Normal 24.7-34.3 [facility] Comment on above: Performed By: #### V [id number], MG, CBC, BMP, TSH3 ####[address] MCV (RBC) [Entitic vol] 94.6 fL Normal 80-100 F [facility] Comment on above: Performed By: #### V [id number], MG, CBC, BMP, TSH3 ####[address] Mean Corpuscular HGB Conc 33.0 g/dL Normal 32.0-35.0 [facility] Comment on above: Performed By: #### V [id number], MG, CBC, BMP, TSH3 ####[address] Monocytes (Bld) [#/Vol] 1.0 10*3/uL High 0.0-0.8 [facility] Comment on above: Performed By: #### V [id number], MG, CBC, BMP, TSH3 ####[address] Monocytes/100 WBC (Bld) 12.4 % Normal . F [facility] Comment on above: Performed By: #### V [id number], MG, CBC, BMP, TSH3 ####[address] Neutrophils (Bld) [#/Vol] 5.2 10*3/uL Normal 1.8-7.7 [facility] Comment on above: Performed By: #### V [id number], MG, CBC, BMP, TSH3 ####[address] Neutrophils/100 WBC (Bld) 66.2 % Normal . [facility] Comment on above: Performed By: #### V [id number], MG, CBC, BMP, TSH3 ####[address] NRBC% 0.0 /100{WBC} Normal 0-0.5 [facility] Comment on above: Performed By: #### V [id number], MG, CBC, BMP, TSH3 ####[place] [id number] Platelet mean volume (Bld) [Entitic vol] 8.2 fL Normal 6.3-10.7 [facility] Comment on above: Performed By: #### V [id number], MG, CBC, BMP, TSH3 ####[place] [address] Platelets (Bld) [#/Vol] 216 10*3/uL Normal 150-450 [facility] Comment on above: Performed By: #### V [id number], MG, CBC, BMP, TSH3 ####[address] RBC (Bld) [#/Vol] 3.80 10*6/uL Normal 3.60-5.00 [facility] Comment on above: Performed By: #### V [id number], MG, CBC, BMP, TSH3 ####[address] WBC (Bld) [#/Vol] 7.8 10*3/uL Normal 3.8-11.6 [facility] Comment on above: Performed By: #### V [id number], MG, CBC, BMP, TSH3 ####[place] [id number] Consultation Noteon 09-01-20 Consultation Note [id number] [id number] Normal [facility] Dipstick and Microscopicon 1 11-02-2022 Appearance (U) Cloudy Critically abnormal Clear [facility] Comment on above: Order Comment: Name Collection Type:: Voided Performed By: #### C UU, ADDONUAPLUS #### [facility] [address] Bacteria,Urine None Seen Normal None Seen [facility] Comment on above: Order Comment: Name Collection Type:: Voided Result Comment: PERF ORMED BY: [place] [address] PATHOLOGIST FIRE DEPARTMENT BATTALION CHIEF BARBARA MUNOZ M.D. Performed By: #### C UU, ADDONUAPLUS #### [facility] [address] [place] [address] [place] Bilirubin,Urine Negative Normal Negative [facility] Comment on above: Order Comment: Name Collection Type:: Voided Performed By: #### C UU, ADDONUAPLUS #### [facility] [address] [place] [address] [place] Color (U) Yellow Normal Yellow [facility] Comment on above: Order Comment: Name Collection Type:: Voided Performed By: #### C UU, ADDONUAPLUS #### [facility] [address] [place] [address] [place] Glucose Ql (U) Normal Normal Normal [facility] Comment on above: Order Comment: Name Collection Type:: Voided Performed By: #### C UU, ADDONUAPLUS #### [facility] [address] [place] [address] [place] Ketones Ql (U) Negative Normal Negative [facility] Comment on above: Order Comment: Name Collection Type:: Voided Performed By: #### C UU, ADDONUAPLUS #### [facility] [address] [place] [address] [place] Leukocyte esterase Test strip Ql (U) 4+ High Negative [facility] Comment on above: Order Comment: Name Collection Type:: Voided Performed By: #### C UU, ADDONUAPLUS #### [facility] [address] [place] [address] [place] Nitrite,Urine Negative Normal Negative [facility] Comment on above: Order Comment: Name Collection Type:: Voided Performed By: #### C UU, ADDONUAPLUS #### [facility] [address] [place] [address] [place] Occult Blood,Urine Trace High Negative [facility] Comment on above: Order Comment: Name Collection Type:: Voided Result Comment: PERF ORMED BY: [place] [address] PATHOLOGIST FIRE DEPARTMENT BATTALION CHIEF BARBARA MUNOZ M.D. Performed By: #### C UU, ADDONUAPLUS #### [address] pH (U) 6.0 [pH] Normal 5.0-9.0 [facility] Comment on above: Order Comment: Name Collection Type:: Voided Performed By: #### C UU, ADDONUAPLUS #### [address] Protein (U) [Mass/Vol] 30 mg/dL High Negative [facility] Comment on above: Order Comment: Name Collection Type:: Voided Performed By: #### C UU, ADDONUAPLUS #### [address] RBC,Urine 1-2 Normal 0-4 [facility] Comment on above: Order Comment: Name Collection Type:: Voided Performed By: #### C UU, ADDONUAPLUS #### [address] Specificy [place],Urine 1.016 Normal 1.001-1.030 [facility] Comment on above: Order Comment: Name Collection Type:: Voided Performed By: #### C UU, ADDONUAPLUS #### [place] [address] [place] Squamous Epithelial Cell,Urine 3-4 High 0-2 [facility] Comment on above: Order Comment: Name Collection Type:: Voided Performed By: #### C UU, ADDONUAPLUS #### [address] Urobilinogen,Urine Normal Normal Normal [facility] Comment on above: Order Comment: Name Collection Type:: Voided Performed By: #### C UU, ADDONUAPLUS #### [place] [address] [place] WBC,Urine 50-100 High 0-4 [facility] Comment on above: Order Comment: Name Collection Type:: Voided Performed By: #### C UAJAY ChristineBLANCAUAPLUS #### [facility] [address] [place] [address] Lactic Acidon 09-01-2023 Lactate [Moles/Vol] 0.8 mmol/L Normal 0.5-2.2 [facility] Comment on above: Order Comment: PT IS BEING MEDICATED Result Comment: PERF ORMED BY: [place] [address] PATHOLOGIST FIRE DEPARTMENT BATTALION CHIEF BARBARA MUNOZ M.D. Performed By: #### L JUVENAL FUNES #### [facility] [address] [place] [address] Magnesiumon 09-01-2023 Magnesium [Mass/Vol] 2.2 mg/dL Normal 1.9-2.7 [facility] Comment on above: Performed By: #### V [id number], MG, CBC, BMP, TSH3 ####[address] Thyroid Stimulating Hormoneo n 09-01-2023 TSH Qn 1.90 m[IU]/L Normal 0.45-5.33 [facility] Comment on above: Result Comment: PERF ORMED BY: [place] [address] PATHOLOGIST FIRE DEPARTMENT BATTALION CHIEF BARBARA MUNOZ M.D. Performed By: #### V [id number], MG, CBC, BMP, TSH3 ####[place] [id number] [facility] Troponin I High Sensitivityo n 09-01-2023 Troponin I High Sensitivity 33.3 pg/mL High 0.0-15.0 [facility] Comment on above: Result Comment: PERF ORMED BY: [place] [address] PATHOLOGIST FIRE DEPARTMENT BATTALION CHIEF BARBARA MUNOZ M.D. Performed By: #### H S TROP #### [facility] [address] [place] [address] Urine Cultureon 09-01-2023 Bacteria identified Cx Nom (U) 75,000 colonies/ml mixed bacterial skin contaminants 2 Days PERFORMED BY: [place] [address] PATHOLOGIST FIRE DEPARTMENT BATTALION CHIEF BARBARA MUNOZ M.D. Normal [facility] Comment on above: Performed By: #### C UU, ADDONUAPLUS #### [address] Vit. B12/Folate Profileon Cobalamin (Vitamin B12) [Mass/Vol] 465 pg/mL Normal 180-914 [facility] Comment on above: Performed By: #### V [id number], MG, CBC, BMP, TSH3 ####[address] Folate 41.0 ng/mL Normal >5.9 [facility] Comment on above: Result Comment: Danielle te reference range: >5.9 ng/ml The WHO technical consultation on folate and vitamin b12 deficiencies has determined that folate concentrations less than 4 ng/ml are considered deficient. Performed By: #### V [id number], MG, CBC, BMP, TSH3 ####[address] XR chest 2V*on 09-01-2023 XR chest 2V* [facility] Main [place] [address] [place] [address] XRay Report Signed Patient: Jesús Nolan MR#: [id number] 34 : 1935 Acct:[id number] Age/Sex: 88 / F ADM Date: 08/31/23 Loc: Room: [address] [place] [address] Type: ADM IN Attending Dr: Riky Bundy [...] NO ACUTE CARDIOPULMONARY ABNORMALITY. Impression dictated by: Isable Vega M.D.09/01/2023 6:23 AM Dictation Location: [place] [address] Transcribed By: [facility] 09/01/23622 Dictated By: Isabel Vega MD [...] Anion gap [Moles/Vol] 16.9 mmol/L High 6.0-15.0 [facility] Comment on above: Performed By: #### B MP, HEPATIC, CBC, LIPASE ####[address] Calcium [Mass/Vol] 9.5 mg/dL Normal 8.6-10.3 [facility] Comment on above: Performed By: #### B MP, HEPATIC, CBC, LIPASE ####[address] Chloride [Moles/Vol] 103 mmol/L Normal 98-107 [facility] Comment on above: Performed By: #### B MP, HEPATIC, CBC, LIPASE ####[address] CO2 [Moles/Vol] 23.7 mmol/L Normal 21.0-31.0 [facility] Comment on above: Performed By: #### B MP, HEPATIC, CBC, LIPASE ####[address] Creatinine [Mass/Vol] 2.74 mg/dL High 0.60-1.20 [facility] Comment on above: Performed By: #### B MP, HEPATIC, CBC, LIPASE ####[address] Creatinine Clr Calc Pharmacy 12.25 [facility] Comment on above: Performed By: #### B MP, HEPATIC, CBC, LIPASE ####[address] GFR/1.73 sq M.predicted MDRD (S/P/Bld) [Vol rate/Area] 16.368 mL/min/{1.73_m2} [facility] Comment on above: Performed By: #### B MP, HEPATIC, CBC, LIPASE ####[address] Glucose [Mass/Vol] 132 mg/dL High 70-100 [facility] Comment on above: Result Comment: [place] Glucose Reference Range is dependent on time and content of last meal. Glucose of more than 200 mg/dL in a nonstressed, ambulatory subject supports the diagnosis of Diabetes Mellitus. ADA recommended reference range Performed By: #### B MP, HEPATIC, CBC, LIPASE ####[facility] [id number] Potassium [Moles/Vol] 4.6 mmol/L Normal 3.5-5.1 [facility] Comment on above: Performed By: #### B MP, HEPATIC, CBC, LIPASE ####[facility] [address] Sodium [Moles/Vol] 139 mmol/L Normal 136-145 [facility] Comment on above: Performed By: #### B MP, HEPATIC, CBC, LIPASE ####[facility] Urea nitrogen [Mass/Vol] 30 mg/dL High 7-25 [facility] Comment on above: Performed By: #### B MP, HEPATIC, CBC, LIPASE ####[facility] Basophils Auto (Bld) [#/Vol] Ordered By: Destiny Irwin on 08-31-2023 Basophils (Bld) [#/Vol] 0.1 10*3/uL 0.0-0.2 [facility] Basophils/100 WBC Auto (Bld) Ordered By: Destiny Irwin on 08-31-2023 Basophils/100 WBC (Bld) 0.6 % . F [facility] Bilirubin Test strip Ql (U)O rdered By: Destiny Irwin on 08-31-2023 Bilirubin Ql (U) Negative Negative [facility] Bilirubin.direct [Mass/volum e] in Serum or PlasmaOrdered By: Destiny Irwin on 08-31-2023 Bilirubin.direct [Mass/Vol] 0.10 mg/dL 0.03-0.18 [facility] Bilirubin.total [Mass/volume ] in Serum or PlasmaOrdered By: Destiny Irwin on 08-31-2023 Bilirubin [Mass/Vol] 0.5 mg/dL 0.3-1.0 [facility] Calcium [Mass/volume] in Ser um or PlasmaOrdered By: Destiny Irwin on 08-31-2023 Calcium [Mass/Vol] 9.5 mg/dL 8.6-10.3 [facility] Carbon dioxide, total [Moles /volume] in Serum or PlasmaOrdered By: Destiny Irwin on 08-31-2023 CO2 [Moles/Vol] 23.7 mmol/L 21.0-31.0 [facility] Chloride [Moles/volume] in S shelley or PlasmaOrdered By: Destiny Irwin on 08-31-2023 Chloride [Moles/Vol] 103 mmol/L 98-107 [facility] Color Auto (U)Ordered By: As yamil Irwin on 08-31-2023 Color (U) Yellow Yellow [facility] Complete Blood Count Auto Di ffon 08-31-2023 Basophils (Bld) [#/Vol] 0.1 10*3/uL Normal 0.0-0.2 [facility] Comment on above: Result Comment: PERF ORMED BY: [facility] [address] [place] [address] PATHOLOGIST FIRE DEPARTMENT BATTALION CHIEF BARBARA MUNOZ M.D. Performed By: #### B MP, HEPATIC, CBC, LIPASE ####[address] Basophils/100 WBC (Bld) 0.6 % Normal . F [facility] Comment on above: Performed By: #### B MP, HEPATIC, CBC, LIPASE ####[place] [id number] [facility] Eosinophils (Bld) [#/Vol] 0.0 10*3/uL Normal 0.0-0.45 [facility] Comment on above: Performed By: #### B MP, HEPATIC, CBC, LIPASE ####[address] Eosinophils/100 WBC (Bld) 0.5 % Normal . [facility] Comment on above: Performed By: #### B MP, HEPATIC, CBC, LIPASE ####[address] Erythrocyte distribution width (RBC) [Ratio] 13.7 % Normal 11.9-15.3 [facility] Comment on above: Performed By: #### B MP, HEPATIC, CBC, LIPASE ####[address] Hematocrit (Bld) [Volume fraction] 40.5 % Normal 34.0-46.4 [facility] Comment on above: Performed By: #### B MP, HEPATIC, CBC, LIPASE ####[address] Hemoglobin (Bld) [Mass/Vol] 13.3 g/dL Normal 11.8-15.4 [facility] Comment on above: Performed By: #### B MP, HEPATIC, CBC, LIPASE ####[address] Lymphocytes (Bld) [#/Vol] 1.9 10*3/uL Normal 1.00-4.8 [facility] Comment on above: Performed By: #### B MP, HEPATIC, CBC, LIPASE ####[address] Lymphocytes/100 WBC (Bld) 20.5 % Normal . [facility] Comment on above: Performed By: #### B MP, HEPATIC, CBC, LIPASE ####[address] MCH (RBC) [Entitic mass] 31.5 pg Normal 24.7-34.3 [facility] Comment on above: Performed By: #### B MP, HEPATIC, CBC, LIPASE ####[address] MCV (RBC) [Entitic vol] 95.4 fL Normal 80-100 F [facility] Comment on above: Performed By: #### B MP, HEPATIC, CBC, LIPASE ####[address] Mean Corpuscular HGB Conc 33.0 g/dL Normal 32.0-35.0 [facility] Comment on above: Performed By: #### B MP, HEPATIC, CBC, LIPASE ####[address] Monocytes (Bld) [#/Vol] 1.0 10*3/uL High 0.0-0.8 [facility] Comment on above: Performed By: #### B MP, HEPATIC, CBC, LIPASE ####[address] Monocytes/100 WBC (Bld) 18.57 % Normal 0.00-20.00 F [facility] Comment on above: Performed By: #### B MP, HEPATIC, CBC, LIPASE ####[address] Monocytes/100 WBC (Bld) 10.6 % Normal . F [facility] Comment on above: Performed By: #### B MP, HEPATIC, CBC, LIPASE ####[address] Neutrophils (Bld) [#/Vol] 6.4 10*3/uL Normal 1.8-7.7 [facility] Comment on above: Performed By: #### B MP, HEPATIC, CBC, LIPASE ####[address] Neutrophils/100 WBC (Bld) 67.8 % Normal . [facility] Comment on above: Performed By: #### B MP, HEPATIC, CBC, LIPASE ####[address] NRBC% 0.0 /100{WBC} Normal 0-0.5 [facility] Comment on above: Performed By: #### B MP, HEPATIC, CBC, LIPASE ####[address] Platelet mean volume (Bld) [Entitic vol] 8.4 fL Normal 6.3-10.7 [facility] Comment on above: Performed By: #### B MP, HEPATIC, CBC, LIPASE ####[address] Platelets (Bld) [#/Vol] 249 10*3/uL Normal 150-450 [facility] Comment on above: Performed By: #### B MP, HEPATIC, CBC, LIPASE ####[facility] [place] [address] [facility] RBC (Bld) [#/Vol] 4.24 10*6/uL Normal 3.60-5.00 [facility] Comment on above: Performed By: #### B MP, HEPATIC, CBC, LIPASE ####[facility] [place] [address] [facility] WBC (Bld) [#/Vol] 9.4 10*3/uL Normal 3.8-11.6 [facility] Comment on above: Performed By: #### B MP, HEPATIC, CBC, LIPASE ####[facility] [place] [id number] [facility] Creatinine [Mass/volume] in Serum or PlasmaOrdered By: Destiny Irwin on 08-31-2023 Creatinine [Mass/Vol] 2.74 mg/dL 0.60-1.20 [facility] D-Dimer High Sensitivityon 1 11-01-2022 D-Dimer [...] coagulation studies. Please contact the laboratory at [phone] for redraw instructions. PERFORMED BY: [facility] [address] [place] [id number] PATHOLOGIST FIRE DEPARTMENT BATTALION CHIEF BARBARA MUNOZ M.D. Performed By: #### D DIMER #### [address] ECG 12 lead ECGon 08-31-2023 ECG 12 lead ECG [facility] Main [place] [address] [place] [address] Electrocardiograph Report Signed Patient: Jesús Nolan MR#: [id number] 34 : 1935 Acct:[id number] Age/Sex: 88 / F ADM Date: 08/31/23 Loc: Room: [address] [place] [address] Type: ADM IN Attending Dr: Riky Bundy [...] anterior infarct Confirmed by Yuly Marx DO ([id number]) on 09/01/2023 6:18:58 AM Referred By: Electronically Signed By:Yuly Marx DO Transcribed By: MUS Signed By Yuly Marx DO [id number] Normal [facility] Eosinophils Auto [...] coagulation studies. Please contact the laboratory at [phone] for redraw instructions. Globulin Calc (S) [Mass/Vol] Ordered By: Destiny Irwin on 08-31-2023 Globulin (S) [Mass/Vol] 3.3 g/dL F [facility] Glucose [Mass/volume] in Ser um or PlasmaOrdered By: Destiny Irwin on 08-31-2023 Glucose [Mass/Vol] 132 mg/dL 70-100 [facility] Comment on above: ADA recommended [...] 08-31-2023 Albumin [Mass/Vol] 4.7 g/dL Normal 3.5-5.7 [facility] Comment on above: Performed By: #### B MP, HEPATIC, CBC, LIPASE ####[place] [address] [place] [address] [facility] Albumin/Globulin [Mass ratio] 1.4 {ratio} Normal [facility] Comment on above: Performed By: #### B MP, HEPATIC, CBC, LIPASE ####[place] [address] [place] [address] [facility] ALP [Catalytic activity/Vol] 101 U/L Normal 34-104 [facility] Comment on above: Performed By: #### B MP, HEPATIC, CBC, LIPASE ####[place] [address] [place] [address] [facility] ALT [Catalytic activity/Vol] 29 U/L Normal 7-52 [facility] Comment on above: Performed By: #### B MP, HEPATIC, CBC, LIPASE ####[address] [address] [facility] AST [Catalytic activity/Vol] 29 U/L Normal 13-39 [facility] Comment on above: Performed By: #### B MP, HEPATIC, CBC, LIPASE ####[place] [address] [place] [address] [facility] Bilirubin [Mass/Vol] 0.5 mg/dL Normal 0.3-1.0 [facility] Comment on above: Performed By: #### B MP, HEPATIC, CBC, LIPASE ####[address] [address] [facility] Bilirubin,Indirect 0.4 mg/dL Normal [facility] Comment on above: Performed By: #### B MP, HEPATIC, CBC, LIPASE ####[address] [address] [facility] Bilirubin.indirect [Mass/Vol] 0.10 mg/dL Normal 0.03-0.18 [facility] Comment on above: Performed By: #### B MP, HEPATIC, CBC, LIPASE ####[place] [address] [place] [address] [facility] Globulin (S) [Mass/Vol] 3.3 g/dL Normal [facility] Comment on above: Performed By: #### B MP, HEPATIC, CBC, LIPASE ####[place] [id number] [place] [address] [facility] Protein [Mass/Vol] 8.0 g/dL Normal 6.4-8.9 [facility] Comment on above: Performed By: #### B MP, HEPATIC, CBC, LIPASE ####[place] [id number] [place] [id number] [facility] Ketones Auto test strip (U) [Mass/Vol]Ordered By: Destiny Irwin on 08-31-2023 Ketones (U) [Mass/Vol] Negative Negative [facility] Leukocytes [#/volume] correc tavia for nucleated erythrocytes in Blood by Automated counOrdered By: Destiny Irwin on 08-31-2023 WBC corrected for nucl RBC Auto (Bld) [#/Vol] 9.4 10*3/uL 3.8-11.6 [facility] Lipaseon 08-31-2023 Lipase [Catalytic activity/Vol] 33.0 U/L Normal 11.0-82.0 [facility] Comment on above: Result Comment: PERF ORMED BY: [facility] [address] [place] [id number] PATHOLOGIST [employer] BATT[employer] CHIEF BARBARA MUNOZ M.D. Performed By: #### B MP, HEPATIC, CBC, LIPASE ####[address] [place] [address] [facility] Lipase [Enzymatic activity/v olume] in Serum [...] 08-31-2023 MCHC (RBC) [Mass/Vol] 33.0 g/dL 32.0-35.0 [facility] MCV Auto (RBC) [Entitic vol] Ordered By: Destiny Irwin on 08-31-2023 MCV (RBC) [Entitic vol] 95.4 fL 80-100 F [facility] Monocyte distribution width [Entitic volume] in Blood [...] Monocytes/100 WBC (Bld) 10.6 % . F [facility] Neutrophils Auto (Bld) [#/Vo l]Ordered By: Destiny [...] on 08-31-2023 Potassium [Moles/Vol] 4.6 mmol/L 3.5-5.1 [facility] Protein Auto test strip (U) [Mass/Vol]Ordered By: Destiny Irwin on 08-31-2023 Protein (U) [Mass/Vol] 30 mg/dL Negative Fi [facility] Protein [Mass/volume] in Ser um or PlasmaOrdered By: Destiny Irwin on 08-31-2023 Protein [Mass/Vol] 8.0 g/dL 6.4-8.9 [facility] RBC Auto (Bld) [#/Vol]Ordere d By: Destiny Irwin on 08-31-2023 RBC (Bld) [#/Vol] 4.24 10*6/uL 3.60-5.00 [facility] Serum or plasma albumin/glob ulin mass ratioOrdered By: Destiny Irwin on 08-31-2023 Albumin/Globulin [Mass ratio] 1.4 {ratio} [facility] Serum or plasma anion gap de terminationOrdered By: Destiny Irwin on 08-31-2023 Anion gap [Moles/Vol] 16.9 mmol/L 6.0-15.0 [facility] Serum or plasma non-glucuron idated bilirubin measurement (mass/volume)Ordered By: Destiny Irwin on 08-31-2023 Bilirubin.indirect [Mass/Vol] 0.4 mg/dL [facility] Sodium [Moles/volume] in Ser um or PlasmaOrdered By: Destiny Irwin on 08-31-2023 Sodium [Moles/Vol] 139 mmol/L 136-145 [facility] Specific gravity Auto test s [...] on above: Result Comment: PERF ORMED BY: [facility] [address] [facility] [place] [address] PATHOLOGIST [employer] BATT[employer] CHIEF BARBARA MUNOZ M.D. Performed By: #### H S TROP ####[facility] [place] [id number] [facility] Troponin I.cardiac [Mass/vol ume] in Serum [...] Auto Ql (U) None seen None Seen [facility] [place] Urine clarity by refractomet ry automatedOrdered By: [...] 08-31-2023 WBC (Bld) [#/Vol] 9.4 10*3/uL 3.8-11.6 [facility] pH Auto test strip (U)Ordere d By: Destiny Irwin on 08-31-2023 pH (U) 6.0 [pH] 5.0-9.0 [facility] Insurance Correspondence Off iceon 08-27-2023 Insurance Correspondence Office [id number] 0TIFF Normal [facility] CBC AUTO DIFFon 04-12-2021 BASO # 0.0 103/ul Normal 0.0-0.1 [facility] Comment on above: Performed By: #### C BC #### [facility] [address] [place], [place] [address] [place] Basophils/100 WBC (Bld) 0.3 % Normal 0.2-2.0 [facility] Comment on above: Performed By: #### C BC #### [facility] [address] [place], [place] [address] [place] EO # 0.1 103/ul Normal 0.0-0.7 [facility] Comment on above: Performed By: #### C BC #### [facility] [address] [place], [place] [address] [place] Eosinophils/100 WBC (Bld) 2.1 % Normal 0.9-7.0 [facility] Comment on above: Performed By: #### C BC #### [facility] [address] [place], [place] [address] [place] Erythrocyte distribution width (RBC) [Ratio] 13.7 % Normal 11.0-15.0 [facility] Comment on above: Performed By: #### C BC #### [facility] [address] [place] [address] Chel[place] Hematocrit (Bld) [Volume fraction] 39.6 % Normal 36.0-48.0 [facility] Comment on above: Performed By: #### C BC #### [facility] [address] [place], [place] [address] [place] Hemoglobin (Bld) [Mass/Vol] 12.9 g/dL Normal 12.0-16.0 [facility] Comment on above: Performed By: #### C BC #### [facility] [address] [place] [address] Chel[place] IG # 0.01 10e3/ul Normal 0.00-0.03 [facility] Comment on above: Performed By: #### C BC #### [facility] [address] [place] [address] [place] IG % 0.2 % Normal 0.0-0.5 [facility] Comment on above: Performed By: #### C BC #### [facility] [address] [place] [address] [place] LYMPH # 2.2 103/ul Normal 1.2-3.8 [facility] Comment on above: Performed By: #### C BC #### [facility] [address] [place] [address] [place] Lymphocytes/100 WBC (Bld) 35.3 % Normal 20.5-60.0 [facility] Comment on above: Performed By: #### C BC #### [facility] [address] [place] [address] [place] MANUAL DIFF REQ NO Normal [facility] Comment on above: Performed By: #### C BC #### [facility] [address] [place], [place] [address] [place] MCH (RBC) [Entitic mass] 31.1 pg Normal 26.7-34.0 [facility] Comment on above: Performed By: #### C BC #### [facility] [address] [place] [id number] [place] MCHC (RBC) [Mass/Vol] 32.6 g/dL Normal 29.9-35.2 [facility] Comment on above: Performed By: #### C BC #### [facility] [address] [place] [id number] [place] MCV (RBC) [Entitic vol] 95.4 fL Normal 81.0-99.0 [facility] Comment on above: Performed By: #### C BC #### [facility] [address] [place] [id number] [place] MONO # 0.7 103/ul Normal 0.3-0.8 [facility] Comment on above: Performed By: #### C BC #### [facility] [address] [place], [place] [address] [place] Monocytes/100 WBC (Bld) 12.1 % Critically high 1.7-12. 0 [facility] Comment on above: Performed By: #### C BC #### [facility] [address] [place], [place] [address] [place] NEUT # 3.1 103/ul Normal 1.4-6.5 [facility] Comment on above: Performed By: #### C BC #### [facility] [address] [place], [place] [address] [place] Neutrophils/100 WBC (Bld) 50.0 % Normal 43.0-75.0 [facility] Comment on above: Performed By: #### C BC #### [facility] [address] [place], [place] [address] Chel[place] Platelet mean volume (Bld) [Entitic vol] 10.2 fL Normal 9.5-13.5 [facility] Comment on above: Performed By: #### C BC #### [facility] [address] [place], [place] [address] [place] PLT 212 103/ul Normal 150-450 [facility] Comment on above: Performed By: #### C BC #### [facility] [address] [place], [place] [address] [place] RBC 4.15 106/ul Critically low 4.20-5.40 [facility] Comment on above: Performed By: #### C BC #### [facility] [address] [place], [place] [address] [place] WBC 6.1 103/ul Normal 4.0-11.0 [facility] Comment on above: Performed By: #### C BC #### [facility] [address] [place] [address] [place] RENAL FUNCTION PANELon 04-12 Albumin [Mass/Vol] 3.4 g/dL Critically low 3.5-5.0 [facility] Comment on above: Performed By: #### R ENAL #### [facility] [address] [place] [address] Chelsey Isabel Calcium [Mass/Vol] 8.9 mg/dL Normal 8.4-10.2 [facility] Comment on above: Performed By: #### R ENAL #### [facility] [address] [place] [address] [place] Chloride [Moles/Vol] 106 mmol/L Normal 98-107 [facility] Comment on above: Performed By: #### R ENAL #### [facility] [address] [place] [address] Chel[place] CO2 [Moles/Vol] 29.4 mmol/L Normal 22.0-30.0 [facility] Comment on above: Performed By: #### R ENAL #### [facility] [address] [place] [address] Chel[place] Creatinine [Mass/Vol] 1.49 mg/dL Critically high 0.52-1.04 [facility] Comment on above: Performed By: #### R ENAL #### [facility] [address] [place], [place] [address] [place] EGFR-AF MEXICAN 41 mL/min/1.73m2 Critically low >=60 [facility] Comment on above: Performed By: #### R ENAL #### [facility] [address] [place], [place] [address] [place] EGFR-NON AF M[place]ICAN 33 mL/min/1.73m2 Critically low >=60 [facility] Comment on above: Performed By: #### R ENAL #### [facility] [address] [place] [address] Chelsey [place] Glucose [Mass/Vol] 138 mg/dL Critically high 74-106 T [facility] Comment on above: Performed By: #### R ENAL #### [facility] [address] [place] [address] Chelsey [place] Phosphate [Mass/Vol] 4.3 mg/dL Normal 2.5-4.5 [facility] Comment on above: Performed By: #### R ENAL #### [facility] [address] [place] [address] Chelsey Isabel Potassium [Moles/Vol] 3.2 mmol/L Critically low 3.4-5.0 [facility] Comment on above: Performed By: #### R ENAL #### [facility] [address] [place] [address] Chel[place] Sodium [Moles/Vol] 144 mmol/L Normal 137-145 [facility] Comment on above: Performed By: #### R ENAL #### [facility] [address] [place] [address] Chelsey [place] Urea nitrogen [Mass/Vol] 28.0 mg/dL Critically high 7.0-17 .0 [facility] Comment on above: Performed By: #### R ENAL #### [facility] [address] [place], [place] [address] [place] UA RANDOMon 04-12-2021 Bilirubin Ql (U) Negative Normal NEGATIVE [facility] Comment on above: Performed By: #### U A #### [facility] [address] [place], [place] [address] [place] Clarity (U) CLOUDY Abnormal CLEAR [facility] Comment on above: Performed By: #### U A #### [facility] [address] [place], [place] [address] Chel[place] Color (U) LT. YELLOW Normal YELLOW [facility] Comment on above: Performed By: #### U A #### [facility] [address] [place] [address] Chelsey [place] Glucose Ql (U) Negative Normal NEGATIVE [facility] Comment on above: Performed By: #### U A #### [facility] [address] [place] [address] Chel[place] Isabel Hemoglobin Ql (U) LARGE Abnormal NEGATIVE [facility] Comment on above: Performed By: #### U A #### [facility] [address] [place] [address] Chel[place] Ketones Ql (U) Negative Normal NEGATIVE [facility] Comment on above: Performed By: #### U A #### [facility] [address] [place] [address] Chel[place] LEUKOCYTES LARGE Abnormal NEGATIVE [facility] Comment on above: Performed By: #### U A #### [facility] [address] [place] [address] Chel[place] Isabel Nitrite Ql (U) Negative Normal NEGATIVE [facility] Comment on above: Performed By: #### U A #### [facility] [address] [place] [address] Chel[place] pH (U) 6.5 [pH] Normal 5-9 [facility] Comment on above: Performed By: #### U A #### [facility] [address] [place] [address] Chelsey Isabel SPEC GRAVITY 1.015 Normal 1.005-<=1.[address] [place] [address] Comment on above: Performed By: #### U A #### [facility] [address] [place] [address] Chel[place] Isabel UA PROTEIN 30 mg/dl Abnormal NEGATIVE/ TRACE [facility] Comment on above: Performed By: #### U A #### [facility] [address] [place] [address] Chelsey Isabel Urobilinogen Qn (U) 0.2 {Gerard'U}/dL Normal 0.2 - 1. 0 [facility] Comment on above: Performed By: #### U A #### [facility] [address] [place], [place] [address] [place] C-Reactive Proteinon 021 CRP [Mass/Vol] 7.9 mg/L High 0.0-5.0 [facility] Comment on above: Performed By: #### C DP #### [facility] [address] [place] [address] [place], [place] [id number] Screen Printer Helper: Loi Irene MD #### CRP #### [facility] [address] [place], [place] [id number] Screen Printer Helper: Dg Aparicio MD CRP [Mass/Vol] 7.9 mg/L High 0.0 - 5.0 mg/L [facility] Phone: Interpretation and review of laboratory results Abnormal [employer] Phone: PTH, Intacton 12-06-2020 PTH, Intact 39.87 pg/mL Normal 15.0-65.0 [facility] Comment on above: Result Comment: SAMP LES FROM PATIENTS ROUTINELY RECEIVING HIGH DOSE BIOTIN THERAPY MAY SHOW FALSELY DEPRESSED RESULTS. ADDITIONAL INFORMATION MAY BE REQUIRED FOR DIAGNOSIS. Performed By: #### ARMANDO Warren URI #### [facility] [address] [place] [address] [place] [address] Screen Printer Helper: Loi Irene MD #### PTHNCA #### [facility] [address] [address] [place], [place] [id number] Screen Printer Helper: Dg Aparicio MD Pth Intact 39.87 pg/mL 15.0 - 65.0 pg/mL [employer] Phone: Comment on above: SAMPLES FROM PATIENT S ROUTINELY RECEIVING HIGH DOSE BIOTIN THERAPY MAY SHOW FALSELY DEPRESSED RESULTS. ADDITIONAL INFORMATION MAY BE REQUIRED FOR DIAGNOSIS. CBC Auto Differentialon 11-25 Basophils (Bld) [#/Vol] 10*3/uL [employer] Phone: Basophils/100 WBC (Bld) 0 % 0 - 2 % [employer] Phone: Differential Type NOT REPORTED [employer] Phone: Eosinophils (Bld) [#/Vol] 0.16 10*3/uL [employer] Phone: Eosinophils/100 WBC (Bld) 3 % 1 - 4 % [employer] Phone: Erythrocyte distribution width (RBC) [Ratio] 15.3 % High 11.8 - 14.4 % [employer] Phone: Hematocrit (Bld) [Volume fraction] 38.3 % 36.3 - 47.1 % [employer] Phone: Hemoglobin (Bld) [Mass/Vol] 11.9 g/dL 11.9 - 15.1 g/dL [employer] Phone: Immature granulocytes (Bld) [#/Vol] 10*3/uL [employer] Phone: Immature granulocytes (Bld) [#/Vol] 0 % 0 [employer] Phone: Interpretation and review of laboratory results Abnormal [employer] Phone: Lymphocytes (Bld) [#/Vol] 1.68 10*3/uL [employer] Phone: Lymphocytes/100 WBC (Bld) 32 % 24 - 43 % [employer] Phone: MCH (RBC) [Entitic mass] 31.2 pg 25. 2 - 33.5 pg [employer] Phone: MCHC (RBC) [Mass/Vol] 31.1 g/dL 28.4 - 34.8 g/dL [employer] Phone: MCV (RBC) [Entitic vol] 100.3 fL 82.6 - 102.9 fL [employer] Phone: Monocytes (Bld) [#/Vol] 0.67 10*3/uL [employer] Phone: Monocytes/100 WBC (Bld) 13 % High 3 - 12 % [facility] Phone: Platelet mean volume (Bld) [Entitic vol] 10.2 fL 8.1 - 13.5 fL [employer] Phone: Platelets (Bld) [#/Vol] 238 10*3/uL [employer] Phone: Platelets (Bld) [#/Vol] NOT REPORTED [employer] Phone: RBC (Bld) [#/Vol] 3.82 10*6/uL Low 3.95 - 5.1 1 m/uL [employer] Phone: RBC morphology finding Nom (Bld) NOT REPORTED [facility] Phone: Segmented neutrophils/100 WBC (Bld) 52 % 36 - 65 % [employer] Phone: Segs Absolute 2.75 [employer] Phone: WBC (Bld) [#/Vol] 5.3 10*3/uL [employer] Phone: WBC (Bld) [#/Vol] 0.0 10*3/uL 0.0 per 10 0 WBC [employer] Phone: WBC Morphology NOT REPORTED [employer] Phone: CBC with Diffon 12-05-2020 Abs. Basophil <0.03 Normal 0.00-0.20 [facility] Comment on above: Performed By: #### C DP #### [facility] [address] [place] [address] Screen Printer Helper: Loi Irene MD #### CRP #### [facility] [address] [address] [place] [address] Screen Printer Helper: Dg Aparicio MD Abs.Imm.Granulocyte <0.03 Normal 0.00-0.30 [facility] Comment on above: Performed By: #### C DP #### [facility] [address] [place] [address] [place] [address] Screen Printer Helper: Loi Irene MD #### CRP #### [address] [address] Screen Printer Helper: Dg Aparicio MD Abs.Neutrophil (Seg) 2.75 k/uL Normal 1.50-8.10 [facility] Comment on above: Performed By: #### C DP #### [address] [place] [phone] ( Screen Printer Helper: Loi Irene MD #### CRP #### [place] [address] Screen Printer Helper: Dg Aparicio MD Basophils/100 WBC (Bld) 0 % Normal 0-2 [facility] Comment on above: Performed By: #### C DP #### [address] [place] [phone] ( Screen Printer Helper: Loi Irene MD #### CRP #### [address] [address] Screen Printer Helper: Dg Aparicio MD Eosinophils (Bld) [#/Vol] 0.16 10*3/uL Normal 0.00-0.44 [facility] Comment on above: Performed By: #### C DP #### [facility] [address] [place] [address] Dr. [place] [phone] ( Screen Printer Helper: Loi Irene MD #### CRP #### [address] [address] Screen Printer Helper: Dg Aparicio MD Eosinophils/100 WBC (Bld) 3 % Normal 1-4 [facility] Comment on above: Performed By: #### C DP #### [facility] [address] [place], [place] [id number] Screen Printer Helper: Loi Irene MD #### CRP #### [address] [phone] Screen Printer Helper: Dg Aparicio MD Erythrocyte distribution width (RBC) [Ratio] 15.3 % High 11.8-14.4 [facility] Comment on above: Performed By: #### C DP #### [facility] [address] [place], [place] [phone] Screen Printer Helper: Loi Irene MD #### CRP #### [address] [id number] Screen Printer Helper: Dg Aparicio MD Hematocrit (Bld) [Volume fraction] 38.3 % Normal 36.3-47.1 [facility] Comment on above: Performed By: #### C DP #### [address] [place], [place] [id number] Screen Printer Helper: Loi Irene MD #### CRP #### [address] [address] Screen Printer Helper: Dg Aparicio MD Hemoglobin (Bld) [Mass/Vol] 11.9 g/dL Normal 11.9-15.1 [facility] Comment on above: Performed By: #### C DP #### [facility] [address] [place] [address] Dr. [place], [place] [id number] Screen Printer Helper: Loi Irene MD #### CRP #### [address] [address] Screen Printer Helper: Dg Aparicio MD Immature granulocytes/100 WBC (Bld) 0 % Normal 0 [facility] Comment on above: Performed By: #### C DP #### [facility] [address] [place] [address] Dr. [place] [phone] Screen Printer Helper: Loi Irene MD #### CRP #### [address] [phone] Screen Printer Helper: Dg Aparicio MD Lymphocytes (Bld) [#/Vol] 1.68 10*3/uL Normal 1.10-3.70 [facility] Comment on above: Performed By: #### C DP #### [facility] [address] [place] [address] Dr. [place] [phone] Screen Printer Helper: Loi Irene MD #### CRP #### [place] [phone] Screen Printer Helper: Dg Aparicio MD Lymphocytes/100 WBC (Bld) 32 % Normal 24-43 [facility] Comment on above: Performed By: #### C DP #### [address] [place] [phone] ( Screen Printer Helper: Loi Irene MD #### CRP #### [place] [address] Screen Printer Helper: Dg Aparicio MD MCH (RBC) [Entitic mass] 31.2 pg Normal 25.2-33.5 [facility] Comment on above: Performed By: #### C DP #### [address] [place] [phone] ( Screen Printer Helper: Loi Irene MD #### CRP #### [address] [address] Screen Printer Helper: Dg Aparicio MD MCHC (RBC) [Mass/Vol] 31.1 g/dL Normal 28.4-34.8 [facility] Comment on above: Performed By: #### C DP #### [address] [place] [phone] Screen Printer Helper: Loi Irene MD #### CRP #### [address] [address] Screen Printer Helper: Dg Aparicio MD MCV (RBC) [Entitic vol] 100.3 fL Normal 82.6-102.9 M [facility] Comment on above: Performed By: #### C DP #### [facility] [address] [place], [place] 10[address] Screen Printer Helper: Loi Irene MD #### CRP #### [address] [address] Screen Printer Helper: Dg Aparicio MD Monocytes (Bld) [#/Vol] 0.67 10*3/uL Normal 0.10-1.20 [facility] Comment on above: Performed By: #### C DP #### [facility] [address] [place] [address] Dr. [place] [phone] ( Screen Printer Helper: Loi Irene MD #### CRP #### [address] [address] Screen Printer Helper: Dg Aparicio MD Monocytes/100 WBC (Bld) 13 % High 3-12 [facility] Comment on above: Performed By: #### C DP #### [address] [place], [place] 8[address]383 Screen Printer Helper: Loi Irene MD #### CRP #### [address] [address] Screen Printer Helper: Dg Aparicio MD Neutrophil (Seg) 52 % Normal 36-65 [facility] Comment on above: Performed By: #### C DP #### [facility] [address] [place] [address] Screen Printer Helper: Loi Irene MD #### CRP #### [address] [address] Screen Printer Helper: Dg Aparicio MD NRBC Automated 0.0 per [address] [facility] Comment on above: Performed By: #### C DP #### [facility] [address] [place] [address] Dr. [place] [phone] Screen Printer Helper: Loi Irene MD #### CRP #### [address] [phone] Screen Printer Helper: Dg Aparicio MD Platelet mean volume (Bld) [Entitic vol] 10.2 fL Normal 8.1-13.5 [facility] Comment on above: Performed By: #### C DP #### [address] [place] [phone] ( Screen Printer Helper: Loi Irene MD #### CRP #### [place] [address] Screen Printer Helper: Dg Aparicio MD Platelets (Bld) [#/Vol] 238 10*3/uL Normal 138-453 [facility] Comment on above: Performed By: #### C DP #### [address] [place] [phone] Screen Printer Helper: Loi Irene MD #### CRP #### [place] [address] Screen Printer Helper: Dg Aparicio MD RBC (Bld) [#/Vol] 3.82 10*6/uL Low 3.95-5.11 [facility] Comment on above: Performed By: #### C DP #### [facility] [address] [place] [address] Dr. [place] [phone] Screen Printer Helper: Loi Irene MD #### CRP #### [address] [address] Screen Printer Helper: Dg Aparicio MD WBC (Bld) [#/Vol] 5.3 10*3/uL Normal 3.5-11.3 [facility] Comment on above: Performed By: #### C DP #### [facility] [address] [place] [address] [place] [address] Screen Printer Helper: Loi Irene MD #### CRP #### [address] [address] Screen Printer Helper: Dg Aparicio MD Auto Diff Performed NOT REPORTED Normal [place] [facility] Comment on above: Performed By: #### C DP #### [address] [place] [address] Screen Printer Helper: Loi Irene MD #### CRP #### [address] [address] Screen Printer Helper: Dg Aparicio MD Platelet Estimate NOT REPORTED Normal [facility] Comment on above: Performed By: #### C DP #### [address] [place] [address] Screen Printer Helper: Loi Irene MD #### CRP #### [address] [address] Screen Printer Helper: Dg Aparicio MD RBC morphology finding Nom (Bld) NOT REPORTED Normal [facility] Comment on above: Performed By: #### C DP #### [address] [place] [address] Screen Printer Helper: Loi Irene MD #### CRP #### [address] [address] Screen Printer Helper: Dg Aparicio MD WBC Morphology NOT REPORTED Normal [facility] Comment on above: Performed By: #### C DP #### [address] [place] [address] Screen Printer Helper: Loi Irene MD #### CRP #### [address], [place] [phone] Screen Printer Helper: Dg Aparicio MD Magnesiumon 12-05-2020 Magnesium [Mass/Vol] 2.2 mg/dL Normal 1.6-2.6 [facility] Comment on above: Performed By: #### M ARMANDO Padgett URI #### [facility] [address] [place] [address] Screen Printer Helper: Loi Irene MD #### PTHNCA #### [facility] [address] [place], [place] [phone] Screen Printer Helper: Dg Aparicio MD Magnesium [Mass/Vol] 2.2 mg/dL 1.6 - 2 .6 mg/dL [facility] Phone: Metabolic Panelon 12-05-2020 GFR/1.73 sq M predicted among non-blacks MDRD (S/P/Bld) [Vol rate/Area] [facility] Phone: Comment on above: Average GFR for 70 o r more years old: 75 mL/min/1.73sq m Chronic Kidney Disease: <60 mL/min/1.73sq m Kidney failure: <15 mL/min/1.73sq m eGFR calculated using average adult body mass. Additional eGFR calculator available at: http://www.[employer].Appconomy/multiple_crcl_2012.htm Stage 1: Some kidney damage normal GFR Stage 2: Mild kidney damage GFR 60-89 Stage 3: Moderate kidney damage GFR 30-59 Stage 4: Severe kidney damage GFR 15-29 Stage 5: Severe kidney damage GFR <15 ESRD - chronic treatment by dialysis or transplant Otheron 12-05-2020 Interpretation and review of laboratory results Abnormal [employer] Phone: Renal Function Panelon 12-05 (cont.) Normal [facility] Comment on above: Result Comment: Aver age GFR for 70 or more years old: 75 mL/min/1.73sq m Chronic Kidney Disease: <60 mL/min/1.73sq m Kidney failure: <15 mL/min/1.73sq m eGFR calculated using average adult body mass. Additional eGFR calculator available at: http://www.[employer].Appconomy/multiple_crcl_2012.htm Performed By: #### ARMANDO Warren URI #### [facility] [address] [place], [place] [id number] Screen Printer Helper: Loi Irene MD #### PTHNCA #### [address] [address] Screen Printer Helper: Dg Aparicio MD Albumin [Mass/Vol] 3.5 g/dL Normal 3.5-5.2 [facility] Comment on above: Performed By: #### ARMANDO Warren URI #### [facility] [address] [place] [address] Dr. [place], [place] [phone] Screen Printer Helper: Loi Irene MD #### PTHNCA #### [address] [address] Screen Printer Helper: Dg Aparicio MD Anion gap [Moles/Vol] 11 mmol/L Normal 9-17 [facility] Comment on above: Performed By: #### ARMANDO Warren URI #### [address] [place], [place] 1896683 Screen Printer Helper: Loi Irene MD #### PTHNCA #### [address] [address] Screen Printer Helper: Dg Aparicio MD BUN/CRE Ratio 20 Normal 9-20 [facility] Comment on above: Performed By: #### ARMANDO Warren URI #### [address] [place], [place] [phone] Screen Printer Helper: Loi Irene MD #### PTHNCA #### [address] [address] Screen Printer Helper: Dg Aparicio MD Calcium [Mass/Vol] 9.3 mg/dL Normal 8.6-10.4 [facility] Comment on above: Performed By: #### ARMANDO Warren URI #### [facility] [address] [place], [place] [phone] Screen Printer Helper: Loi Irene MD #### PTHNCA #### [address] [phone] Screen Printer Helper: Dg Aparicio MD Chloride [Moles/Vol] 103 mmol/L Normal 98-107 [facility] Comment on above: Performed By: #### ARMANDO Warren URI #### [facility] [address] [place] [address] [place], [place] [phone] Screen Printer Helper: Loi Irene MD #### PTHNCA #### [address] [phone] Screen Printer Helper: Dg Aparicio MD CO2 [Moles/Vol] 29 mmol/L Normal 20-31 [facility] Comment on above: Performed By: #### ARMANDO Warren URI #### [facility] [address] [place] [address] [place], [place] [phone] Screen Printer Helper: Loi Irene MD #### PTHNCA #### [address] [address] Screen Printer Helper: Dg Aparicio MD Creatinine [Mass/Vol] 1.43 mg/dL High 0.50-0.90 [facility] Comment on above: Performed By: #### ARMANDO Warren URI #### [address] [place], [place] [phone] Screen Printer Helper: Loi Irene MD #### PTHNCA #### [address] [phone] Screen Printer Helper: Dg Aparicio MD GFR, Amer 42 mL/min Low >60 [facility] Comment on above: Performed By: #### M FROY PadgettP, URI #### [facility] [address] [place], [place] [phone] Screen Printer Helper: Loi Irene MD #### PTHNCA #### [address] [phone] Screen Printer Helper: Dg Aparicio MD GFR,non Amer 35 mL/min Low >60 [facility] Comment on above: Performed By: #### FROY WarrenP, URI #### [facility] [address] [place] [address] Dr. [place], [place] [phone] Screen Printer Helper: Loi Irene MD #### PTHNCA #### [address] [phone] Screen Printer Helper: Dg Aparicio MD Glucose [Mass/Vol] 131 mg/dL High 70-99 [facility] Comment on above: Performed By: #### FROY WarrenP, URI #### [address] [place], [place] 1650283 Screen Printer Helper: Loi Irene MD #### PTHNCA #### [address] [address] Screen Printer Helper: Dg Aparicio MD Phosphorus, Inorg. 3.6 mg/dL Normal 2.6-4.5 [facility] Comment on above: Performed By: #### FROY WarrenP, URI #### [facility] [address] [place], [place] 8881183 Screen Printer Helper: Loi Irene MD #### PTHNCA #### [address] [address] Screen Printer Helper: Dg Aparicio MD Potassium [Moles/Vol] 3.4 mmol/L Low 3.7-5.3 [facility] Comment on above: Performed By: #### ARMANDO Warren URI #### [facility] [address] [place] [address] Dr. [place], [place] [phone] Screen Printer Helper: Loi Irene MD #### PTHNCA #### [address] [place] [address] Screen Printer Helper: Dg Aparicio MD Sodium [Moles/Vol] 143 mmol/L Normal 135-144 [facility] Comment on above: Performed By: #### ARMANDO Warren URI #### [address] [place], [place] [phone] Screen Printer Helper: Loi Irene MD #### PTHNCA #### [address] [phone] Screen Printer Helper: Dg Aparicio MD Staging: Normal [facility] Comment on above: Result Comment: Stag e 1: Some kidney damage normal GFR Stage 2: Mild kidney damage GFR 60-89 Stage 3: Moderate kidney damage GFR 30-59 Stage 4: Severe kidney damage GFR 15-29 Stage 5: Severe kidney damage GFR <15 ESRD - chronic treatment by dialysis or transplant Performed By: #### ARMANDO Warren URI #### [address] [place], [place] 6484483 Screen Printer Helper: Loi Irene MD #### PTHNCA #### [address] [place] [address] Screen Printer Helper: Dg Aparicio MD Urea nitrogen [Mass/Vol] 29 mg/dL High 8-23 [facility] Comment on above: Performed By: #### ARMANDO Warren URI #### [address] [place], [place] 6412583 Screen Printer Helper: Loi Irene MD #### PTHNCA #### [address] [phone] Screen Printer Helper: Dg Aparicio MD Albumin [Mass/Vol] 3.5 g/dL 3.5 - 5.2 g/dL [employer] Phone: Anion gap [Moles/Vol] 11 mmol/L 9 - 17 mmol/L [employer] Phone: Bun/Cre Ratio 20 [employer] Phone: Calcium [Mass/Vol] 9.3 mg/dL 8.6 - 10. 4 mg/dL [employer] Phone: Chloride [Moles/Vol] 103 mmol/L 98 - 10 7 mmol/L [employer] Phone: CO2 [Moles/Vol] 29 mmol/L 20 - 31 mmol/L [employer] Phone: Creatinine [Mass/Vol] 1.43 mg/dL High 0.50 - 0.90 mg/dL [employer] Phone: GFR 42 mL/min Low >60 [employer] Phone: GFR Non- 35 mL/min Low >60 [employer] Phone: Glucose [Mass/Vol] 131 mg/dL High 70 - 99 mg/dL [employer] Phone: Phosphate [Mass/Vol] 3.6 mg/dL 2.6 - 4 .5 mg/dL [employer] Phone: Potassium [Moles/Vol] 3.4 mmol/L Low 3.7 - 5.3 mmol/L [employer] Phone: Sodium [Moles/Vol] 143 mmol/L 135 - 144 mmol/L [employer] Phone: Urea nitrogen [Mass/Vol] 29 mg/dL High 8 - 23 mg/dL [employer] Phone: Uric Acidon 12-05-2020 Urate [Mass/Vol] 7.3 mg/dL High 2.4-5.7 [facility] Comment on above: Performed By: #### M G, FROYP, URI #### [address] [place] [address] Screen Printer Helper: Loi Irene MD #### PTHNCA #### [facility] [address] [place], [place] [phone] Screen Printer Helper: Dg Aparicio MD Urate [Mass/Vol] 7.3 mg/dL High 2.4 - 5.7 mg/dL [employer] Phone: C-Reactive Proteinon 021 CRP [Mass/Vol] 7.8 mg/L High 0.0-5.0 [facility] Comment on above: Performed By: #### C DP, SED #### [facility] [address] [place] [address] [place] [address] Screen Printer Helper: Loi Irene MD #### CRP #### [facility] [address] [place], [place] [phone] Screen Printer Helper: Dg Aparicio MD CRP [Mass/Vol] 7.8 mg/L High 0 - 5 mg/L [employer] Phone: Interpretation and review of laboratory results Abnormal [employer] Phone: CBC Auto Differentialon 10-28 Basophils (Bld) [#/Vol] 10*3/uL [employer] Phone: Basophils/100 WBC (Bld) 0 % 0 - 2 % [employer] Phone: Differential Type NOT REPORTED [employer] Phone: Eosinophils (Bld) [#/Vol] 0.37 10*3/uL [employer] Phone: Eosinophils/100 WBC (Bld) 5 % High 1 - 4 % [employer] Phone: Erythrocyte distribution width (RBC) [Ratio] 17.7 % High 11.8 - 14.4 % [employer] Phone: Hematocrit (Bld) [Volume fraction] 36.9 % 36.3 - 47.1 % [employer] Phone: Hemoglobin (Bld) [Mass/Vol] 11.1 g/dL Low 11.9 - 15.1 g/dL [employer] Phone: Immature granulocytes (Bld) [#/Vol] 10*3/uL [employer] Phone: Immature granulocytes (Bld) [#/Vol] 0 % 0 [employer] Phone: Interpretation and review of laboratory results Abnormal [employer] Phone: Lymphocytes (Bld) [#/Vol] 1.74 10*3/uL [employer] Phone: Lymphocytes/100 WBC (Bld) 23 % Low 24 - 43 % [employer] Phone: MCH (RBC) [Entitic mass] 29.6 pg 25. 2 - 33.5 pg [employer] Phone: MCHC (RBC) [Mass/Vol] 30.1 g/dL 28.4 - 34.8 g/dL [employer] Phone: MCV (RBC) [Entitic vol] 98.4 fL 82.6 - 102.9 fL [employer] Phone: Monocytes (Bld) [#/Vol] 0.76 10*3/uL [employer] Phone: Monocytes/100 WBC (Bld) 10 % 3 - 12 % [employer] Phone: Platelet mean volume (Bld) [Entitic vol] 9.9 fL 8.1 - 13.5 fL [employer] Phone: Platelets (Bld) [#/Vol] NOT REPORTED [employer] Phone: [phone] Platelets (Bld) [#/Vol] 344 10*3/uL [employer] Phone: RBC (Bld) [#/Vol] 3.75 10*6/uL Low 3.95 - 5.1 1 m/uL [employer] Phone: RBC morphology finding Nom (Bld) NOT REPORTED [employer] Phone: Segmented neutrophils/100 WBC (Bld) 62 % 36 - 65 % [employer] Phone: Segs Absolute 4.61 [employer] Phone: WBC (Bld) [#/Vol] 7.5 10*3/uL [employer] Phone: WBC (Bld) [#/Vol] 0.0 10*3/uL 0.0 per 10 0 WBC [employer] Phone: WBC Morphology NOT REPORTED [employer] Phone: CBC with Diffon 11-07-2020 Abs. Basophil <0.03 Normal 0.00-0.20 [facility] Comment on above: Performed By: #### C DP, SED #### [facility] [address] [place] [address] [place] [address] Screen Printer Helper: Loi Irene MD #### CRP #### [address] [place] [address] Screen Printer Helper: Dg Aparicio MD Abs.Imm.Granulocyte <0.03 Normal 0.00-0.30 [facility] Comment on above: Performed By: #### C DP, SED #### [address] [place] 7863983 Screen Printer Helper: Loi Irene MD #### CRP #### [place] [phone] Screen Printer Helper: Dg Aparicio MD Abs.Neutrophil (Seg) 4.61 k/uL Normal 1.50-8.10 [facility] Comment on above: Performed By: #### C DP, SED #### [facility] [address] [place] [address] Dr. [place] [phone] Screen Printer Helper: Loi Irene MD #### CRP #### [place] [address] Screen Printer Helper: Dg Aparicio MD Basophils/100 WBC (Bld) 0 % Normal 0-2 [facility] Comment on above: Performed By: #### C DP, SED #### [address] [place] 7863960 ( Screen Printer Helper: Loi Irene MD #### CRP #### [place] [address] Screen Printer Helper: Dg Aparicio MD Eosinophils (Bld) [#/Vol] 0.37 10*3/uL Normal 0.00-0.44 [facility] Comment on above: Performed By: #### C DP, SED #### [address] [place] [phone] Screen Printer Helper: Loi Irene MD #### CRP #### [place] [address] Screen Printer Helper: Dg Aparicio MD Eosinophils/100 WBC (Bld) 5 % High 1-4 [facility] Comment on above: Performed By: #### C DP, SED #### [address] [place] [phone] Screen Printer Helper: Loi Irene MD #### CRP #### [address] [phone] Screen Printer Helper: Dg Aparicio MD Erythrocyte distribution width (RBC) [Ratio] 17.7 % High 11.8-14.4 [facility] Comment on above: Performed By: #### C DP, SED #### [facility] [address] [place] [address] Dr. [place] [phone] Screen Printer Helper: Loi Irene MD #### CRP #### [address] [address] Screen Printer Helper: Dg Aparicio MD Hematocrit (Bld) [Volume fraction] 36.9 % Normal 36.3-47.1 [facility] Comment on above: Performed By: #### C DP, SED #### [address] [place] [phone] Screen Printer Helper: Loi Irene MD #### CRP #### [address] [address] Screen Printer Helper: Dg Aparicio MD Hemoglobin (Bld) [Mass/Vol] 11.1 g/dL Low 11.9-15.1 [facility] Comment on above: Performed By: #### C DP, SED #### [address] [place] [phone] Screen Printer Helper: Loi Irene MD #### CRP #### [address] [phone] Screen Printer Helper: Dg Aparicio MD Immature granulocytes/100 WBC (Bld) 0 % Normal 0 [facility] Comment on above: Performed By: #### C DP, SED #### [address] [place], [place] [phone] Screen Printer Helper: Loi Irene MD #### CRP #### [address] [place] [phone] Screen Printer Helper: Dg Aparicio MD Lymphocytes (Bld) [#/Vol] 1.74 10*3/uL Normal 1.10-3.70 [facility] Comment on above: Performed By: #### C DP, SED #### [facility] [address] [place] [address] Dr. [place] [phone] Screen Printer Helper: Loi Irene MD #### CRP #### [address] [phone] Screen Printer Helper: Dg Aparicio MD Lymphocytes/100 WBC (Bld) 23 % Low 24-43 [facility] Comment on above: Performed By: #### C DP, SED #### [facility] [address] [place] [address] [place] [address] Screen Printer Helper: Loi Irene MD #### CRP #### [place] [address] Screen Printer Helper: Dg Aparicio MD MCH (RBC) [Entitic mass] 29.6 pg Normal 25.2-33.5 [facility] Comment on above: Performed By: #### C DP, SED #### [address] [place] [phone] Screen Printer Helper: Loi Irene MD #### CRP #### [address] [address] Screen Printer Helper: Dg Aparicio MD MCHC (RBC) [Mass/Vol] 30.1 g/dL Normal 28.4-34.8 [facility] Comment on above: Performed By: #### C DP, SED #### [address] [place] [phone] Screen Printer Helper: Loi Irene MD #### CRP #### [address] [address] Screen Printer Helper: Dg Aparicio MD MCV (RBC) [Entitic vol] 98.4 fL Normal 82.6-102.9 M [facility] Comment on above: Performed By: #### C DP, SED #### [address] [place], [place] [phone] Screen Printer Helper: Loi Irene MD #### CRP #### [address] [phone] Screen Printer Helper: Dg Aparicio MD Monocytes (Bld) [#/Vol] 0.76 10*3/uL Normal 0.10-1.20 [facility] Comment on above: Performed By: #### C DP, SED #### [address] [place] [phone] Screen Printer Helper: Loi Irene MD #### CRP #### [address] [address] Screen Printer Helper: Dg Aparicio MD Monocytes/100 WBC (Bld) 10 % Normal 3-12 M [facility] Comment on above: Performed By: #### C DP, SED #### [address] [place] 7863983 Screen Printer Helper: Loi Irene MD #### CRP #### [address] [address] Screen Printer Helper: Dg Aparicio MD Neutrophil (Seg) 62 % Normal 36-65 [facility] Comment on above: Performed By: #### C DP, SED #### [address] [place] [phone] Screen Printer Helper: Loi Irene MD #### CRP #### [address] [address] Screen Printer Helper: Dg Aparicio MD NRBC Automated 0.0 per [address] [facility] Comment on above: Performed By: #### C DP, SED #### [facility] [address] [place], [place] [phone] Screen Printer Helper: Loi Irene MD #### CRP #### [address] [place], [place] [phone] Screen Printer Helper: Dg Aparicio MD Platelet mean volume (Bld) [Entitic vol] 9.9 fL Normal 8.1-13.5 [facility] Comment on above: Performed By: #### C DP, SED #### [facility] [address] [place], [place] [phone] Screen Printer Helper: Loi Irene MD #### CRP #### [address] [phone] Screen Printer Helper: Dg Aparicio MD Platelets (Bld) [#/Vol] 344 10*3/uL Normal 138-453 [facility] Comment on above: Performed By: #### C DP, SED #### [facility] [address] [place], [place] [phone] Screen Printer Helper: Loi Irene MD #### CRP #### [address] [address] Screen Printer Helper: Dg Aparicio MD RBC (Bld) [#/Vol] 3.75 10*6/uL Low 3.95-5.11 [facility] Comment on above: Performed By: #### C DP, SED #### [facility] [address] [place], [place] [phone] Screen Printer Helper: Loi Irene MD #### CRP #### [address] [address] Screen Printer Helper: Dg Aparicio MD WBC (Bld) [#/Vol] 7.5 10*3/uL Normal 3.5-11.3 [facility] Comment on above: Performed By: #### C DP, SED #### [facility] [address] [place] [address] [place] [address] Screen Printer Helper: Loi Irene MD #### CRP #### [facility] [address] [place] [address] Screen Printer Helper: Dg Aparicio MD Auto Diff Performed NOT REPORTED Normal [facility] Comment on above: Performed By: #### C DP, SED #### [facility] [address] [place] [address] [place] [address] Screen Printer Helper: Loi Irene MD #### CRP #### [address] [address] Screen Printer Helper: Dg Aparicio MD Platelet Estimate NOT REPORTED Normal [facility] Comment on above: Performed By: #### C DP, SED #### [address] [place] [address] Screen Printer Helper: Loi Irene MD #### CRP #### [address] [address] Screen Printer Helper: Dg Aparicio MD RBC morphology finding Nom (Bld) NOT REPORTED Normal [facility] Comment on above: Performed By: #### C DP, SED #### [address] [place] [address] Screen Printer Helper: Loi Irene MD #### CRP #### [address] [address] Screen Printer Helper: Dg Aparicio MD WBC Morphology NOT REPORTED Normal [facility] Comment on above: Performed By: #### C DP, SED #### [address] [place] [address] Screen Printer Helper: Loi Irene MD #### CRP #### [address] [id number] Screen Printer Helper: Dg Aparicio MD Sedimentation Rateon 021 Sedimentation Rate 51 mm High 0-20 [facility] Comment on above: Performed By: #### C DP, SED #### [facility] [address] [place] [address] Screen Printer Helper: Loi Irene MD #### CRP #### [facility] [address] [place], [place] [phone] Screen Printer Helper: Dg Aparicio MD Interpretation and review of laboratory results Abnormal [facility] Work Phone: Sed Rate 51 mm High 0 - 20 mm [facility] Work Phone: Lipid Panelon 10-30-2020 Cholesterol [Mass/Vol] 147 mg/dL <200 [place], [place] Comment on above: Cholesterol Guidelines: <200 Desirable 200-240 Borderline >240 Undesirable Cholesterol in HDL [Mass/Vol] 50 mg/dL >40 [place], [place] Comment on above: HDL Guidelines: <40 Undesirable 40-59 Borderline >59 Desirable Cholesterol in LDL [Mass/Vol] 64 mg/dL 0 - 130 mg/dL [place], [place] Comment on above: LDL Guidelines: <100 Desirable 100-129 Near to/above Desirable 130-159 Borderline >159 Undesirable Direct (measured) LDL and calculated LDL are not interchangeable tests. Cholesterol in VLDL [Mass/Vol] NOT REPORTED High 1 - 30 mg/dL [place], [place] Cholesterol.total/Choles terol in HDL [Mass ratio] 2.9 {ratio} <5 [place], [place] Interpretation and review of laboratory results Abnormal [place] Triglyceride [Mass/Vol] 166 mg/dL High <150 M [place], [place] Comment on above: Triglyceride Guidelines: <150 Desirable 150-199 Borderline 200-499 High >499 Very high Based on AHA Guidelines for fasting triglyceride, June 2012. Lipid Profileon 10-30-2020 Cholesterol [Mass/Vol] 147 mg/dL Normal <200 [facility] Comment on above: Result Comment: Cholesterol Guidelines: <200 Desirable 200-240 Borderline >240 Undesirable Performed By: #### L IPR #### [facility] [address] [place] [address] Screen Printer Helper: Dg Aparicio MD Cholesterol in HDL [Mass/Vol] 50 mg/dL Normal >40 [facility] Comment on above: Result Comment: HDL Guidelines: <40 Undesirable 40-59 Borderline >59 Desirable Performed By: #### L IPR #### [address] [address] Screen Printer Helper: Dg Aparicio MD Cholesterol in LDL [Mass/Vol] 64 mg/dL Normal 0-130 [facility] Comment on above: Result Comment: LDL Guidelines: <100 Desirable 100-129 Near to/above Desirable 130-159 Borderline >159 Undesirable Direct (measured) LDL and calculated LDL are not interchangeable tests. Performed By: #### L IPR #### [address] [address] Screen Printer Helper: Dg Aparicio MD Cholesterol.total/Choles terol in HDL [Mass ratio] 2.9 {ratio} Normal <5 [facility] Comment on above: Performed By: #### L IPR #### [facility] [address] [place] [address] Screen Printer Helper: Dg Aparicio MD Triglyceride [Mass/Vol] 166 mg/dL High <150 M [facility] Comment on above: Result Comment: Triglyceride Guidelines: <150 Desirable 150-199 Borderline 200-499 High >499 Very high Based on AHA Guidelines for fasting triglyceride, June 2012. Performed By: #### L IPR #### [facility] [address] [place] [address] Screen Printer Helper: Dg Aparicio MD Cholesterol,VLDL NOT REPORTED Normal 1-30 [facility] Comment on above: Performed By: #### L IPR #### [facility] [address] [place] [address] Screen Printer Helper: Dg Aparicio MD C-Reactive Proteinon 021 CRP [Mass/Vol] 51.2 mg/L High 0.0-5.0 [facility] Comment on above: Performed By: #### C DP #### [facility] [address] [place] [address] Dr[address] [place], [place] [phone] Screen Printer Helper: Loi Irene MD #### CRP #### [address] [address] Screen Printer Helper: Dg Aparicio MD CRP [Mass/Vol] 51.2 mg/L High 0 - 5 mg/L [place], [place] Interpretation and review of laboratory results Abnormal [place], [place] CBCon 10-23-2020 Erythrocyte distribution width (RBC) [Ratio] 16.5 % High 11.8-14.4 [facility] Comment on above: Performed By: #### C DP #### [address] [place], [place] [phone] Screen Printer Helper: Loi Irene MD #### CRP #### [address] [address] [address] Screen Printer Helper: Dg Aparicio MD Hematocrit (Bld) [Volume fraction] 32.7 % Low 36.3-47.1 [facility] Comment on above: Performed By: #### C DP #### [facility] [address] [place] [address] Dr. [place], [place] [id number] Screen Printer Helper: Loi Irene MD #### CRP #### [address] [address] Screen Printer Helper: Dg Aparicio MD Hemoglobin (Bld) [Mass/Vol] 10.0 g/dL Low 11.9-15.1 [facility] Comment on above: Performed By: #### C DP #### [address] [place], [place] [id number] Screen Printer Helper: Loi Irene MD #### CRP #### [address] [id number] Screen Printer Helper: Dg Aparicio MD MCH (RBC) [Entitic mass] 29.0 pg Normal 25.2-33.5 [facility] Comment on above: Performed By: #### C DP #### [facility] [address] [place] [address] Dr. [place], [place] [id number] Screen Printer Helper: Loi Irene MD #### CRP #### [address] [id number] Screen Printer Helper: Dg Aparicio MD MCHC (RBC) [Mass/Vol] 30.6 g/dL Normal 28.4-34.8 [facility] Comment on above: Performed By: #### C DP #### [address] [place] [phone] Screen Printer Helper: Loi Irene MD #### CRP #### [address] [phone] Screen Printer Helper: Dg Aparicio MD MCV (RBC) [Entitic vol] 94.8 fL Normal 82.6-102.9 M [facility] Comment on above: Performed By: #### C DP #### [address] [place] [phone] Screen Printer Helper: Loi Irene MD #### CRP #### [address] [address] Screen Printer Helper: Dg Aparicio MD NRBC Automated 0.0 per [address] [facility] Comment on above: Performed By: #### C DP #### [address] [place] [phone] Screen Printer Helper: Loi Irene MD #### CRP #### [address] [address] Screen Printer Helper: Dg Aparicio MD Platelet mean volume (Bld) [Entitic vol] 9.6 fL Normal 8.1-13.5 [facility] Comment on above: Performed By: #### C DP #### [facility] [address] [place], [place] [id number] Screen Printer Helper: Loi Irene MD #### CRP #### [address] [id number] Screen Printer Helper: Dg Aparicio MD Platelets (Bld) [#/Vol] 478 10*3/uL High 138-453 [facility] Comment on above: Performed By: #### C DP #### [facility] [address] [place], [place] [id number] Screen Printer Helper: Loi Irene MD #### CRP #### [address] [address] Screen Printer Helper: Dg Aparicio MD RBC (Bld) [#/Vol] 3.45 10*6/uL Low 3.95-5.11 [facility] Comment on above: Performed By: #### C DP #### [facility] [address] [place], [place] [phone] Screen Printer Helper: Loi Irene MD #### CRP #### [address] [address] Screen Printer Helper: Dg Aparicio MD WBC (Bld) [#/Vol] 8.2 10*3/uL Normal 3.5-11.3 [facility] Comment on above: Performed By: #### C DP #### [facility] [address] [place], [place] [phone] Screen Printer Helper: Loi Irene MD #### CRP #### [address] [address] Screen Printer Helper: Dg Aparicio MD Erythrocyte distribution width (RBC) [Ratio] 16.5 % High 11.8 - 14.4 % [place] Hematocrit (Bld) [Volume fraction] 32.7 % Low 36.3 - 47.1 % [place] Hemoglobin (Bld) [Mass/Vol] 10.0 g/dL Low 11.9 - 15.1 g/dL [place] Interpretation and review of laboratory results Abnormal [place] MCH (RBC) [Entitic mass] 29.0 pg 25. 2 - 33.5 pg [place] MCHC (RBC) [Mass/Vol] 30.6 g/dL 28.4 - 34.8 g/dL [place] MCV (RBC) [Entitic vol] 94.8 fL 82.6 - 102.9 fL [place] Platelet mean volume (Bld) [Entitic vol] 9.6 fL 8.1 - 13.5 fL [place] Platelets (Bld) [#/Vol] 478 10*3/uL High [place] RBC (Bld) [#/Vol] 3.45 10*6/uL Low 3.95 - 5.1 1 m/uL [place] WBC (Bld) [#/Vol] 8.2 10*3/uL [place] WBC (Bld) [#/Vol] 0.0 10*3/uL 0.0 per 10 0 WBC [place] Comp Metabolic Profon 2020 (cont.) Normal [facility] Comment on above: Result Comment: Aver age GFR for 70 or more years old: 75 mL/min/1.73sq m Chronic Kidney Disease: <60 mL/min/1.73sq m Kidney failure: <15 mL/min/1.73sq m eGFR calculated using average adult body mass. Additional eGFR calculator available at: http://www.[employer].App[employer]y/multiple_crcl_2011.htm Performed By: #### C DP #### [facility] [address] [place] [address] Screen Printer Helper: Loi Irene MD #### CRP #### [facility] [address] [place] [address] Screen Printer Helper: Dg Aparicio MD Albumin [Mass/Vol] 3.0 g/dL Low 3.5-5.2 [facility] Comment on above: Performed By: #### C DP #### [facility] [address] [place], [place] [phone] Screen Printer Helper: Loi Irene MD #### CRP #### [address] [address] Screen Printer Helper: Dg Aparicio MD Albumin/Glob Ratio 0.8 Low 1.0-2.5 [facility] Comment on above: Performed By: #### C DP #### [facility] [address] [place] [address] Dr. [place] [phone] Screen Printer Helper: Loi Irene MD #### CRP #### [address] [address] Screen Printer Helper: Dg Aparicio MD Alkaline Phos 105 U/L High 35-104 [facility] Comment on above: Performed By: #### C DP #### [facility] [address] [place] [address] [place] [address] Screen Printer Helper: Loi Irene MD #### CRP #### [address] [address] Screen Printer Helper: Dg Aparicio MD ALT [Catalytic activity/Vol] 11 U/L Normal 5-33 [facility] Comment on above: Performed By: #### C DP #### [facility] [address] [place] [address] Dr. [place], [place] [phone] Screen Printer Helper: Loi Irene MD #### CRP #### [address] [address] Screen Printer Helper: Dg Aparicio MD Anion gap [Moles/Vol] 11 mmol/L Normal 9-17 [facility] Comment on above: Performed By: #### C DP #### [facility] [address] [place], [place] [phone] Screen Printer Helper: Loi Irene MD #### CRP #### [facility] [address] [place] [address] Screen Printer Helper: Dg Aparicio MD AST [Catalytic activity/Vol] 14 U/L Normal <32 [facility] Comment on above: Performed By: #### C DP #### [facility] [address] [place] [address] Screen Printer Helper: Loi Irene MD #### CRP #### [address] [address] Screen Printer Helper: Dg Aparicio MD Bilirubin [Mass/Vol] 0.24 mg/dL Low 0.3-1.2 [facility] Comment on above: Performed By: #### C DP #### [facility] [address] [place] [address] [place] [address] Screen Printer Helper: Loi Irene MD #### CRP #### [address] [address] Screen Printer Helper: Dg Aparicio MD BUN/CRE Ratio 22 High 9-20 [facility] Comment on above: Performed By: #### C DP #### [facility] [address] [place] [address] Screen Printer Helper: Loi Irene MD #### CRP #### [facility] [address] [place] [address] Screen Printer Helper: Dg Aparicio MD Calcium [Mass/Vol] 8.9 mg/dL Normal 8.6-10.4 [facility] Comment on above: Performed By: #### C DP #### [facility] [address] [place], [place] [phone] Screen Printer Helper: Loi Irene MD #### CRP #### [place] [address] [place] [address] Screen Printer Helper: Dg Aparicio MD Chloride [Moles/Vol] 99 mmol/L Normal 98-107 [facility] Comment on above: Performed By: #### C DP #### [facility] [address] [place], [place] [phone] Screen Printer Helper: Loi Irene MD #### CRP #### [address] [address] Screen Printer Helper: gD Aparicio MD CO2 [Moles/Vol] 28 mmol/L Normal 20-31 [facility] Comment on above: Performed By: #### C DP #### [facility] [address] [place] [address] Dr. [place], [place] [phone] Screen Printer Helper: Loi Irene MD #### CRP #### [address] [address] Screen Printer Helper: Dg Aparicio MD Creatinine [Mass/Vol] 1.27 mg/dL High 0.50-0.90 [facility] Comment on above: Performed By: #### C DP #### [facility] [address] [place] [address] Dr. [place], [place] [phone] Screen Printer Helper: Loi Irene MD #### CRP #### [address] [address] Screen Printer Helper: Dg Aparicio MD GFR, Amer 49 mL/min Low >60 [facility] Comment on above: Performed By: #### C DP #### [facility] [address] [place], [place] [phone] Screen Printer Helper: Loi Irene MD #### CRP #### [address] [address] Screen Printer Helper: Dg Aparicio MD GFR,non Amer 40 mL/min Low >60 [facility] Comment on above: Performed By: #### C DP #### [facility] [address] [place], [place] [phone] Screen Printer Helper: Loi Irene MD #### CRP #### [address] [address] Screen Printer Helper: Dg Aparicio MD Glucose [Mass/Vol] 159 mg/dL High 70-99 [facility] Comment on above: Performed By: #### C DP #### [facility] [address] [place] [address] Screen Printer Helper: Loi Irene MD #### CRP #### [address] [address] Screen Printer Helper: Dg Aparicio MD Potassium [Moles/Vol] 3.3 mmol/L Low 3.7-5.3 [facility] Comment on above: Performed By: #### C DP #### [facility] [address] [place] [address] Screen Printer Helper: Loi Irene MD #### CRP #### [address] [address] Screen Printer Helper: Dg Aparicio MD Protein [Mass/Vol] 6.7 g/dL Normal 6.4-8.3 [facility] Comment on above: Performed By: #### C DP #### [facility] [address] [place] [address] Screen Printer Helper: Loi Irene MD #### CRP #### [address] [address] Screen Printer Helper: Dg Aparicio MD Sodium [Moles/Vol] 138 mmol/L Normal 135-144 [facility] Comment on above: Performed By: #### C DP #### [facility] [address] [place], [place] [phone] Screen Printer Helper: Loi Irene MD #### CRP #### [place] [place], [place] [phone] Screen Printer Helper: Dg Aparicio MD Staging: Normal [facility] Comment on above: Result Comment: Stag e 1: Some kidney damage normal GFR Stage 2: Mild kidney damage GFR 60-89 Stage 3: Moderate kidney damage GFR 30-59 Stage 4: Severe kidney damage GFR 15-29 Stage 5: Severe kidney damage GFR <15 ESRD - chronic treatment by dialysis or transplant Performed By: #### C DP #### [address] [place] [address] Screen Printer Helper: Loi Irene MD #### CRP #### [address] [phone] Screen Printer Helper: Dg Aparicio MD Urea nitrogen [Mass/Vol] 28 mg/dL High 8-23 [facility] Comment on above: Performed By: #### C DP #### [facility] [address] [place] [address] Dr. [place], [place] [phone] Screen Printer Helper: Loi Irene MD #### CRP #### [address] [place] [place] [address] Screen Printer Helper: Dg Aparicio MD Comprehensive Metabolic Pane [facility] 10-23-2020 Albumin [Mass/Vol] 3 g/dL Low 3.5 - 5.2 g/dL [place] Albumin/Globulin [Mass ratio] 0.8 {ratio} Low [place] ALP [Catalytic activity/Vol] 105 U/L High 35 - 104 U/L [place] ALT [Catalytic activity/Vol] 11 U/L 5 - 33 U/L [place] Anion gap [Moles/Vol] 11 mmol/L 9 - 17 mmol/L [place] AST [Catalytic activity/Vol] 14 U/L <32 [place] Bilirubin Ql (U) 0.24 mg/dL Low 0.3 - 1.2 mg/dL [place] Bun/Cre Ratio 22 High [place] Calcium [Mass/Vol] 8.9 mg/dL 8.6 - 10. 4 mg/dL [place] Chloride [Moles/Vol] 99 mmol/L 98 - 10 7 mmol/L [place] CO2 [Moles/Vol] 28 mmol/L 20 - 31 mmol/L [place] Creatinine [Mass/Vol] 1.27 mg/dL High 0.5 - 0.9 mg/dL [place] GFR 49 mL/min Low >60 [place] GFR Non- 40 mL/min Low >60 [place] Glucose [Mass/Vol] 159 mg/dL High 70 - 99 mg/dL [place] Interpretation and review of laboratory results Abnormal [place] Potassium [Moles/Vol] 3.3 mmol/L Low 3.7 - 5.3 mmol/L [place] Protein [Mass/Vol] 6.7 g/dL 6.4 - 8.3 g/dL [place] Sodium [Moles/Vol] 138 mmol/L 135 - 144 mmol/L [place] Urea nitrogen [Mass/Vol] 28 mg/dL High 8 - 23 mg/dL [place] Metabolic Panelon 10-23-2020 GFR/1.73 sq M predicted among non-blacks MDRD (S/P/Bld) [Vol rate/Area] [place] Comment on above: Average GFR for 70 o r more years old: 75 mL/min/1.73sq m Chronic Kidney Disease: <60 mL/min/1.73sq m Kidney failure: <15 mL/min/1.73sq m eGFR calculated using average adult body mass. Additional eGFR calculator available at: http://www.[employer]/multiple_crcl_2012.htm Stage 1: Some kidney damage normal GFR Stage 2: Mild kidney damage GFR 60-89 Stage 3: Moderate kidney damage GFR 30-59 Stage 4: Severe kidney damage GFR 15-29 Stage 5: Severe kidney damage GFR <15 ESRD - chronic treatment by dialysis or transplant Sedimentation Rateon 021 Sedimentation Rate 101 mm High 0-20 [facility] Comment on above: Performed By: #### C DP #### [facility] [address] [place] [address] Screen Printer Helper: Loi Irnee MD #### CRP #### [facility] [address] [place] [address] Screen Printer Helper: Dg Aparicio MD Interpretation and review of laboratory results Abnormal [place] Sed Rate 101 mm High 0 - 20 mm [place] C-Reactive Proteinon 020 CRP [Mass/Vol] 33.8 mg/L High 0 - 5 mg/L [place] Interpretation and review of laboratory results Abnormal [place] CBCon 09-26-2020 Erythrocyte distribution width (RBC) [Ratio] 14.3 % 11.8 - 14.4 % [place] Hematocrit (Bld) [Volume fraction] 38.8 % 36.3 - 47.1 % [place] Hemoglobin (Bld) [Mass/Vol] 11.8 g/dL Low 11.9 - 15.1 g/dL [place] Interpretation and review of laboratory results Abnormal [place] MCH (RBC) [Entitic mass] 28.5 pg 25. 2 - 33.5 pg [place] MCHC (RBC) [Mass/Vol] 30.4 g/dL 28.4 - 34.8 g/dL [place] MCV (RBC) [Entitic vol] 93.7 fL 82.6 - 102.9 fL [place] Platelet mean volume (Bld) [Entitic vol] 9.9 fL 8.1 - 13.5 fL [place] Platelets (Bld) [#/Vol] 230 10*3/uL [place] RBC (Bld) [#/Vol] 4.14 10*6/uL 3.95 - 5.1 1 m/uL [place] WBC (Bld) [#/Vol] 6.9 10*3/uL [place] WBC (Bld) [#/Vol] 0.0 10*3/uL 0.0 per 10 0 WBC [place] Comprehensive Metabolic Pane rdidhi 09-26-2020 Albumin [Mass/Vol] 3.4 g/dL Low 3.5 - 5.2 g/dL [place] Albumin/Globulin [Mass ratio] 1.0 {ratio} [place] ALP [Catalytic activity/Vol] 131 U/L High 35 - 104 U/L [place] ALT [Catalytic activity/Vol] 23 U/L 5 - 33 U/L [place] Anion gap [Moles/Vol] 13 mmol/L 9 - 17 mmol/L [place] AST [Catalytic activity/Vol] 21 U/L <32 [place] Bilirubin Ql (U) 0.36 mg/dL 0.3 - 1.2 mg/dL [place] Bun/Cre Ratio 24 High [place] Calcium [Mass/Vol] 8.7 mg/dL 8.6 - 10. 4 mg/dL [place] Chloride [Moles/Vol] 96 mmol/L Low 98 - 10 7 mmol/L [place] CO2 [Moles/Vol] 28 mmol/L 20 - 31 mmol/L [place] Creatinine [Mass/Vol] 1.27 mg/dL High 0.5 - 0.9 mg/dL [place] GFR 49 mL/min Low >60 [place] GFR Non- 40 mL/min Low >60 [place] Glucose [Mass/Vol] 138 mg/dL High 70 - 99 mg/dL [place] Interpretation and review of laboratory results Abnormal [place] Potassium [Moles/Vol] 3.4 mmol/L Low 3.7 - 5.3 mmol/L [place] Protein [Mass/Vol] 6.7 g/dL 6.4 - 8.3 g/dL [place] Sodium [Moles/Vol] 137 mmol/L 135 - 144 mmol/L [place] Urea nitrogen [Mass/Vol] 31 mg/dL High 8 - 23 mg/dL [place] Magnesiumon 09-26-2020 Magnesium [Mass/Vol] 2.1 mg/dL 1.6 - 2 .6 mg/dL [place] Metabolic Panelon 09-26-2020 GFR/1.73 sq M predicted among non-blacks MDRD (S/P/Bld) [Vol rate/Area] [place] Comment on above: Average GFR for 70 o r more years old: 75 mL/min/1.73sq m Chronic Kidney Disease: <60 mL/min/1.73sq m Kidney failure: <15 mL/min/1.73sq m eGFR calculated using average adult body mass. Additional eGFR calculator available at: http://www.[employer]/multiple_crcl_2012.htm Stage 1: Some kidney damage normal GFR Stage 2: Mild kidney damage GFR 60-89 Stage 3: Moderate kidney damage GFR 30-59 Stage 4: Severe kidney damage GFR 15-29 Stage 5: Severe kidney damage GFR <15 ESRD - chronic treatment by dialysis or transplant Sedimentation Rateon 020 Interpretation and review of laboratory results Abnormal [place] Sed Rate 53 mm High 0 - 20 mm [place] C-Reactive Proteinon 020 CRP [Mass/Vol] 43.7 mg/L High 0 - 5 mg/L [place] Interpretation and review of laboratory results Abnormal [place] CBCon 09-18-2020 Erythrocyte distribution width (RBC) [Ratio] 14.0 % 11.8 - 14.4 % [place] Hematocrit (Bld) [Volume fraction] 37.2 % 36.3 - 47.1 % [place] Hemoglobin (Bld) [Mass/Vol] 11.4 g/dL Low 11.9 - 15.1 g/dL [place] Interpretation and review of laboratory results Abnormal [place] MCH (RBC) [Entitic mass] 29.2 pg 25. 2 - 33.5 pg [place] MCHC (RBC) [Mass/Vol] 30.6 g/dL 28.4 - 34.8 g/dL [place] MCV (RBC) [Entitic vol] 95.4 fL 82.6 - 102.9 fL [place] Platelet mean volume (Bld) [Entitic vol] 10.6 fL 8.1 - 13.5 fL [place] Platelets (Bld) [#/Vol] 254 10*3/uL [place] RBC (Bld) [#/Vol] 3.90 10*6/uL Low 3.95 - 5.1 1 m/uL [place] WBC (Bld) [#/Vol] 8.3 10*3/uL [place] WBC (Bld) [#/Vol] 0.0 10*3/uL 0.0 per 10 0 WBC [place] Comprehensive Metabolic Pane riddhi 09-18-2020 Albumin [Mass/Vol] 3.3 g/dL Low 3.5 - 5.2 g/dL [place] Albumin/Globulin [Mass ratio] 1.1 {ratio} [place] ALP [Catalytic activity/Vol] 137 U/L High 35 - 104 U/L [place] ALT [Catalytic activity/Vol] 14 U/L 5 - 33 U/L [place] Anion gap [Moles/Vol] 8 mmol/L Low 9 - 17 mmol/L [place] AST [Catalytic activity/Vol] 12 U/L <32 [place] Bilirubin Ql (U) 0.27 mg/dL Low 0.3 - 1.2 mg/dL [place] Bun/Cre Ratio 30 High [place] Calcium [Mass/Vol] 8.9 mg/dL 8.6 - 10. 4 mg/dL [place] Chloride [Moles/Vol] 95 mmol/L Low 98 - 10 7 mmol/L [place] CO2 [Moles/Vol] 30 mmol/L 20 - 31 mmol/L [place] Creatinine [Mass/Vol] 1.21 mg/dL High 0.5 - 0.9 mg/dL [place] GFR 52 mL/min Low >60 [place] GFR Non- 42 mL/min Low >60 [place] Glucose [Mass/Vol] 206 mg/dL High 70 - 99 mg/dL [place] Interpretation and review of laboratory results Abnormal [place] Potassium [Moles/Vol] 2.9 mmol/L Critically low 3.7 - 5.3 mmol/L [place] Protein [Mass/Vol] 6.4 g/dL 6.4 - 8.3 g/dL [place] Sodium [Moles/Vol] 133 mmol/L Low 135 - 144 mmol/L [place] Urea nitrogen [Mass/Vol] 36 mg/dL High 8 - 23 mg/dL [place] Metabolic Panelon 09-18-2020 GFR/1.73 sq M predicted among non-blacks MDRD (S/P/Bld) [Vol rate/Area] [place] Comment on above: Average GFR for 70 o r more years old: 75 mL/min/1.73sq m Chronic Kidney Disease: <60 mL/min/1.73sq m Kidney failure: <15 mL/min/1.73sq m eGFR calculated using average adult body mass. Additional eGFR calculator available at: http://www.[employer]/multiple_crcl_2012.htm Stage 1: Some kidney damage normal GFR Stage 2: Mild kidney damage GFR 60-89 Stage 3: Moderate kidney damage GFR 30-59 Stage 4: Severe kidney damage GFR 15-29 Stage 5: Severe kidney damage GFR <15 ESRD - chronic treatment by dialysis or transplant Sedimentation Rateon Interpretation and review of laboratory results Abnormal [place] Sed Rate 37 mm High 0 - 20 mm [place] C-Reactive Proteinon 020 CRP [Mass/Vol] 17.9 mg/L High 0 - 5 mg/L [place] Interpretation and review of laboratory results Abnormal [place] CBCon 09-11-2020 Erythrocyte distribution width (RBC) [Ratio] 13.8 % 11.8 - 14.4 % [place] Hematocrit (Bld) [Volume fraction] 37.9 % 36.3 - 47.1 % [place] Hemoglobin (Bld) [Mass/Vol] 11.4 g/dL Low 11.9 - 15.1 g/dL [place] Interpretation and review of laboratory results Abnormal [place] MCH (RBC) [Entitic mass] 28.4 pg 25. 2 - 33.5 pg [place] MCHC (RBC) [Mass/Vol] 30.1 g/dL 28.4 - 34.8 g/dL [place] MCV (RBC) [Entitic vol] 94.5 fL 82.6 - 102.9 fL [place] Platelet mean volume (Bld) [Entitic vol] 10.7 fL 8.1 - 13.5 fL [place] Platelets (Bld) [#/Vol] 269 10*3/uL [place] RBC (Bld) [#/Vol] 4.01 10*6/uL 3.95 - 5.1 1 m/uL [place] WBC (Bld) [#/Vol] 0.0 10*3/uL 0.0 per 10 0 WBC [place] WBC (Bld) [#/Vol] 7.1 10*3/uL [place] Comprehensive Metabolic Pane riddhi 09-11-2020 Albumin [Mass/Vol] 3.8 g/dL 3.5 - 5.2 g/dL [place] Albumin/Globulin [Mass ratio] 1.7 {ratio} [place] ALP [Catalytic activity/Vol] 145 U/L High 35 - 104 U/L [place] ALT [Catalytic activity/Vol] 14 U/L 5 - 33 U/L [place] Anion gap [Moles/Vol] 13 mmol/L 9 - 17 mmol/L [place] AST [Catalytic activity/Vol] 12 U/L <32 [place] Bilirubin Ql (U) 0.28 mg/dL Low 0.3 - 1.2 mg/dL [place] Bun/Cre Ratio 35 High [place] Calcium [Mass/Vol] 9.3 mg/dL 8.6 - 10. 4 mg/dL [place] Chloride [Moles/Vol] 98 mmol/L 98 - 10 7 mmol/L [place] CO2 [Moles/Vol] 28 mmol/L 20 - 31 mmol/L [place] Creatinine [Mass/Vol] 1.33 mg/dL High 0.5 - 0.9 mg/dL [place] GFR 46 mL/min Low >60 [place] GFR Non- 38 mL/min Low >60 [place] Glucose [Mass/Vol] 150 mg/dL High 70 - 99 mg/dL [place] Interpretation and review of laboratory results Abnormal [place] Potassium [Moles/Vol] 3.0 mmol/L Low 3.7 - 5.3 mmol/L [place] Protein [Mass/Vol] 6.1 g/dL Low 6.4 - 8.3 g/dL [place] Sodium [Moles/Vol] 139 mmol/L 135 - 144 mmol/L [place] Urea nitrogen [Mass/Vol] 46 mg/dL High 8 - 23 mg/dL [place] Metabolic Panelon 09-11-2020 GFR/1.73 sq M predicted among non-blacks MDRD (S/P/Bld) [Vol rate/Area] [place] Comment on above: Average GFR for 70 o r more years old: 75 mL/min/1.73sq m Chronic Kidney Disease: <60 mL/min/1.73sq m Kidney failure: <15 mL/min/1.73sq m eGFR calculated using average adult body mass. Additional eGFR calculator available at: http://www.Us[employer]/multiple_crcl_2012.htm Stage 1: Some kidney damage normal GFR Stage 2: Mild kidney damage GFR 60-89 Stage 3: Moderate kidney damage GFR 30-59 Stage 4: Severe kidney damage GFR 15-29 Stage 5: Severe kidney damage GFR <15 ESRD - chronic treatment by dialysis or transplant Sedimentation Rateon Interpretation and review of laboratory results Abnormal [place] Sed Rate 34 mm High 0 - 20 mm [place] C-Reactive Proteinon CRP [Mass/Vol] 11.1 mg/L High 0 - 5 mg/L [place] Interpretation and review of laboratory results Abnormal [place] Comprehensive Metabolic Pane riddhi 09-06-2020 Albumin [Mass/Vol] 3.8 g/dL 3.5 - 5.2 g/dL [place] Albumin/Globulin [Mass ratio] 1.2 {ratio} [place] ALP [Catalytic activity/Vol] 149 U/L High 35 - 104 U/L [place] ALT [Catalytic activity/Vol] 18 U/L 5 - 33 U/L [place] Anion gap [Moles/Vol] 13 mmol/L 9 - 17 mmol/L [place] AST [Catalytic activity/Vol] 18 U/L <32 [place] Bilirubin Ql (U) 0.28 mg/dL Low 0.3 - 1.2 mg/dL [place] Bun/Cre Ratio 33 High [place] Calcium [Mass/Vol] 9.8 mg/dL 8.6 - 10. 4 mg/dL [place] Chloride [Moles/Vol] 97 mmol/L Low 98 - 10 7 mmol/L [place] CO2 [Moles/Vol] 28 mmol/L 20 - 31 mmol/L [place] Creatinine [Mass/Vol] 1.33 mg/dL High 0.5 - 0.9 mg/dL [place] GFR 46 mL/min Low >60 [place] GFR Non- 38 mL/min Low >60 [place] Glucose [Mass/Vol] 209 mg/dL High 70 - 99 mg/dL [place] Interpretation and review of laboratory results Abnormal [place] Potassium [Moles/Vol] 3.0 mmol/L Low 3.7 - 5.3 mmol/L [place] Protein [Mass/Vol] 7.0 g/dL 6.4 - 8.3 g/dL [place] Sodium [Moles/Vol] 138 mmol/L 135 - 144 mmol/L [place] Urea nitrogen [Mass/Vol] 44 mg/dL High 8 - 23 mg/dL [place] Metabolic Panelon 09-06-2020 GFR/1.73 sq M predicted among non-blacks MDRD (S/P/Bld) [Vol rate/Area] [place] Comment on above: Stage 1: Some [...] body mass. Additional eGFR calculator available at: http://www.Usermind/multiple_crcl_2012.htm CBCon 09-05-2020 Erythrocyte distribution width (RBC) [Ratio] 13.9 % 11.8 - 14.4 % [place] Hematocrit (Bld) [Volume fraction] 39.5 % 36.3 - 47.1 % [place] Hemoglobin (Bld) [Mass/Vol] 12.0 g/dL 11.9 - 15.1 g/dL [place] MCH (RBC) [Entitic mass] 29.0 pg 25. 2 - 33.5 pg [place] MCHC (RBC) [Mass/Vol] 30.4 g/dL 28.4 - 34.8 g/dL [place] MCV (RBC) [Entitic vol] 95.4 fL 82.6 - 102.9 fL [place] Platelet mean volume (Bld) [Entitic vol] 10.3 fL 8.1 - 13.5 fL [place] Platelets (Bld) [#/Vol] 295 10*3/uL [place] RBC (Bld) [#/Vol] 4.14 10*6/uL 3.95 - 5.1 1 m/uL [place] WBC (Bld) [#/Vol] 7.8 10*3/uL [place] WBC (Bld) [#/Vol] 0.0 10*3/uL 0.0 per 10 0 WBC [place] Comprehensive Metabolic Pane riddhi 09-05-2020 Albumin [Mass/Vol] 3.9 g/dL 3.5 - 5.2 g/dL [place] Albumin/Globulin [Mass ratio] 1.3 {ratio} [place] ALP [Catalytic activity/Vol] 143 U/L High 35 - 104 U/L [place] ALT [Catalytic activity/Vol] 15 U/L 5 - 33 U/L [place] Anion gap [Moles/Vol] 12 mmol/L 9 - 17 mmol/L [place] AST [Catalytic activity/Vol] 17 U/L <32 [place] Bilirubin Ql (U) 0.32 mg/dL 0.3 - 1.2 mg/dL [place] Bun/Cre Ratio 39 High [place] Calcium [Mass/Vol] 9.5 mg/dL 8.6 - 10. 4 mg/dL [place] Chloride [Moles/Vol] 100 mmol/L 98 - 10 7 mmol/L [place] CO2 [Moles/Vol] 29 mmol/L 20 - 31 mmol/L [place] Creatinine [Mass/Vol] 1.29 mg/dL High 0.5 - 0.9 mg/dL [place] GFR 48 mL/min Low >60 [place] GFR Non- 39 mL/min Low >60 [place] Glucose [Mass/Vol] 191 mg/dL High 70 - 99 mg/dL [place] Interpretation and review of laboratory results Abnormal [place] Potassium [Moles/Vol] 3.3 mmol/L Low 3.7 - 5.3 mmol/L [place] Protein [Mass/Vol] 7.0 g/dL 6.4 - 8.3 g/dL [place] Sodium [Moles/Vol] 141 mmol/L 135 - 144 mmol/L [place] Urea nitrogen [Mass/Vol] 50 mg/dL High 8 - 23 mg/dL [place] Metabolic Panelon 09-05-2020 GFR/1.73 sq M predicted among non-blacks MDRD (S/P/Bld) [Vol rate/Area] [place] Comment on above: Stage 1: Some [...] body mass. Additional eGFR calculator available at: http://www.Usermind/multiple_crcl_2012.htm Sedimentation Rateon 020 Interpretation and review of laboratory results Abnormal [place] Sed Rate 38 mm High 0 - 20 mm [place] C-Reactive Proteinon CRP [Mass/Vol] 9.3 mg/L High 0 - 5 mg/L [place] Interpretation and review of laboratory results Abnormal [place] CBCon 08-28-2020 Erythrocyte distribution width (RBC) [Ratio] 13.5 % 11.8 - 14.4 % [place] Hematocrit (Bld) [Volume fraction] 37.9 % 36.3 - 47.1 % [place] Hemoglobin (Bld) [Mass/Vol] 11.9 g/dL 11.9 - 15.1 g/dL [place] MCH (RBC) [Entitic mass] 29.3 pg 25. 2 - 33.5 pg [place] MCHC (RBC) [Mass/Vol] 31.4 g/dL 28.4 - 34.8 g/dL [place] MCV (RBC) [Entitic vol] 93.3 fL 82.6 - 102.9 fL [place] Platelet mean volume (Bld) [Entitic vol] 10.1 fL 8.1 - 13.5 fL [place] Platelets (Bld) [#/Vol] 303 10*3/uL [place] RBC (Bld) [#/Vol] 4.06 10*6/uL 3.95 - 5.1 1 m/uL [place] WBC (Bld) [#/Vol] 6.9 10*3/uL [place] WBC (Bld) [#/Vol] 0.0 10*3/uL 0.0 per 10 0 WBC [place] Comprehensive Metabolic Pane riddhi 08-28-2020 Albumin [Mass/Vol] 3.5 g/dL 3.5 - 5.2 g/dL [place] Albumin/Globulin [Mass ratio] 1.2 {ratio} [place] ALP [Catalytic activity/Vol] 134 U/L High 35 - 104 U/L [place] ALT [Catalytic activity/Vol] 12 U/L 5 - 33 U/L [place] Anion gap [Moles/Vol] 11 mmol/L 9 - 17 mmol/L [place] AST [Catalytic activity/Vol] 14 U/L <32 [place] Bilirubin Ql (U) 0.22 mg/dL Low 0.3 - 1.2 mg/dL [place] Bun/Cre Ratio 38 High [place] Calcium [Mass/Vol] 9.1 mg/dL 8.6 - 10. 4 mg/dL [place] Chloride [Moles/Vol] 105 mmol/L 98 - 10 7 mmol/L [place] CO2 [Moles/Vol] 27 mmol/L 20 - 31 mmol/L [place] Creatinine [Mass/Vol] 1.13 mg/dL High 0.5 - 0.9 mg/dL [place] GFR 56 mL/min Low >60 [place] GFR Non- 46 mL/min Low >60 [place] Glucose [Mass/Vol] 174 mg/dL High 70 - 99 mg/dL [place] Interpretation and review of laboratory results Abnormal [place] Potassium [Moles/Vol] 3.5 mmol/L Low 3.7 - 5.3 mmol/L [place] Protein [Mass/Vol] 6.4 g/dL 6.4 - 8.3 g/dL [place] Sodium [Moles/Vol] 143 mmol/L 135 - 144 mmol/L [place] Urea nitrogen [Mass/Vol] 43 mg/dL High 8 - 23 mg/dL [place] Metabolic Panelon 08-28-2020 GFR/1.73 sq M predicted among non-blacks MDRD (S/P/Bld) [Vol rate/Area] [place] Comment on above: Average GFR for 70 o r more years old: 75 mL/min/1.73sq m Chronic Kidney Disease: <60 mL/min/1.73sq m Kidney failure: <15 mL/min/1.73sq m eGFR calculated using average adult body mass. Additional eGFR calculator available at: http://www.Usermind/multiple_crcl_2012.htm Stage 1: Some kidney damage normal GFR Stage 2: Mild kidney damage GFR 60-89 Stage 3: Moderate kidney damage GFR 30-59 Stage 4: Severe kidney damage GFR 15-29 Stage 5: Severe kidney damage GFR <15 ESRD - chronic treatment by dialysis or transplant Sedimentation Rateon 020 Interpretation and review of laboratory results Abnormal [place] Sed Rate 30 mm High 0 - 20 mm [place] Infectious Disease Office/Cl inic Noteon 08-27-2020 [...] cephalexin and antibiotics to be adjusted by fpc physician based on culture. Problem List/Past Medical [...] KUMAR, Manuel Brody 08/29/20 09:08 EST Normal [facility] Microscopic Urinalysison Amorphous, UA NOT REPORTED None [facility] Bacteria, UA 4+ Abnormal None [facility] [place] Casts UA NOT REPORTED /LPF [facility] Crystals, UA 10 TO 20 Abnormal None /HPF [facility] Crystals, UA TRIPLE PHOSPHATE Abnormal None /HPF [facility] [place] Epithelial Cells UA 5 TO 10 [facility] [place] Interpretation and review of laboratory results Abnormal [facility] Mucus, UA NOT REPORTED None [facility] [place] Other Observations UA NOT REPORTED NOT REQ. M [facility] RBC (U) [#/Vol] 20 TO 50 [facility] [place] Renal Epithelial, UA NOT REPORTED 0 /HPF [facility] Trichomonas, UA NOT REPORTED None [facility] WBC, UA GREATER THAN 100 [facility] [place] Yeast, UA NOT REPORTED None [facility] [place] - [facility] [place] Provider Letteron 08-27-2020 Provider Letter Justino Dhaliawl DO [address] [place] [id number] Re: Jesús Nolan Date of Visit: 08/27/[address] Dhaliwal, Thank you for your referral to my office. Attached you will find the most recent office visit note. Please call if you have any questions or concerns. Sincerely, Manuel Ibarra MD [address] [place] [address], [place] [address] The following document(s) were included in the letter: August 27, 2020 15:16:22 EST - (08/27/2020) Telehealth Office Visit Note Normal [facility] Urinalysison 08-27-2020 Bilirubin Urine Negative NEGATIVE [place] Color, UA YELLOW YELLOW [place] Glucose, Ur Negative NEGATIVE [place] Interpretation and review of laboratory results Abnormal [place] Ketones Ql (U) Negative NEGATIVE [place] Leukocyte esterase Test strip Ql (U) LARGE Abnormal NEGATIVE [place] Nitrite, Urine Negative NEGATIVE [place] pH, UA >=9.0 [place] Protein (U) [Mass/Vol] 2+ Abnormal NEGATIVE [place] Specific [place], UA 1.010 [place] Turbidity UA CLOUDY Abnormal CLEAR [place] Urinalysis Comments NOT REPORTED [place] Urine Hgb Negative NEGATIVE [place] Urobilinogen, Urine Normal Normal [place] C-Reactive Proteinon 020 CRP [Mass/Vol] 26.8 mg/L High 0 - 5 mg/L [place] Interpretation and review of laboratory results Abnormal [place] CBCon 08-21-2020 Erythrocyte distribution width (RBC) [Ratio] 13.7 % 11.8 - 14.4 % [place] Hematocrit (Bld) [Volume fraction] 40.0 % 36.3 - 47.1 % [place] Hemoglobin (Bld) [Mass/Vol] 11.9 g/dL 11.9 - 15.1 g/dL [place] MCH (RBC) [Entitic mass] 29.0 pg 25. 2 - 33.5 pg [place] MCHC (RBC) [Mass/Vol] 29.8 g/dL 28.4 - 34.8 g/dL [place] MCV (RBC) [Entitic vol] 97.3 fL 82.6 - 102.9 fL [place] Platelet mean volume (Bld) [Entitic vol] 10.3 fL 8.1 - 13.5 fL [place] Platelets (Bld) [#/Vol] 380 10*3/uL [place] RBC (Bld) [#/Vol] 4.11 10*6/uL 3.95 - 5.1 1 m/uL [place] WBC (Bld) [#/Vol] 0.0 10*3/uL 0.0 per 10 0 WBC [place] WBC (Bld) [#/Vol] 6.8 10*3/uL [place] Comprehensive Metabolic Pane riddhi 08-21-2020 Albumin [Mass/Vol] 4 g/dL 3.5 - 5.2 g/dL [place] Albumin/Globulin [Mass ratio] 1.2 {ratio} [place] ALP [Catalytic activity/Vol] 143 U/L High 35 - 104 U/L [place] ALT [Catalytic activity/Vol] 13 U/L 5 - 33 U/L [place] Anion gap [Moles/Vol] 14 mmol/L 9 - 17 mmol/L [place] AST [Catalytic activity/Vol] 14 U/L <32 [place] Bilirubin Ql (U) 0.18 mg/dL Low 0.3 - 1.2 mg/dL [place] Bun/Cre Ratio 38 High [place] Calcium [Mass/Vol] 10.0 mg/dL 8.6 - 10. 4 mg/dL [place] Chloride [Moles/Vol] 102 mmol/L 98 - 10 7 mmol/L [place] CO2 [Moles/Vol] 27 mmol/L 20 - 31 mmol/L [place] Creatinine [Mass/Vol] 1.57 mg/dL High 0.5 - 0.9 mg/dL [place] GFR 38 mL/min Low >60 [place] GFR Non- 31 mL/min Low >60 [place] Glucose [Mass/Vol] 123 mg/dL High 70 - 99 mg/dL [place] Interpretation and review of laboratory results Abnormal [place] Potassium [Moles/Vol] 3.8 mmol/L 3.7 - 5.3 mmol/L [place] Protein [Mass/Vol] 7.4 g/dL 6.4 - 8.3 g/dL [place] Sodium [Moles/Vol] 143 mmol/L 135 - 144 mmol/L [place] Urea nitrogen [Mass/Vol] 60 mg/dL High 8 - 23 mg/dL [place] Metabolic Panelon 08-21-2020 GFR/1.73 sq M predicted among non-blacks MDRD (S/P/Bld) [Vol rate/Area] [place] Comment on above: Average GFR for 70 o r more years old: 75 mL/min/1.73sq m Chronic Kidney Disease: <60 mL/min/1.73sq m Kidney failure: <15 mL/min/1.73sq m eGFR calculated using average adult body mass. Additional eGFR calculator available at: http://www.Usermind/multiple_crcl_2012.htm Stage 1: Some kidney damage normal GFR Stage 2: Mild kidney damage GFR 60-89 Stage 3: Moderate kidney damage GFR 30-59 Stage 4: Severe kidney damage GFR 15-29 Stage 5: Severe kidney damage GFR <15 ESRD - chronic treatment by dialysis or transplant Sedimentation Rateon Interpretation and review of laboratory results Abnormal [place] Sed Rate 38 mm High 0 - 20 mm [place] C-Reactive Proteinon CRP [Mass/Vol] 14.9 mg/L High 0 - 5 mg/L [place] Interpretation and review of laboratory results Abnormal [place] CBCon 08-16-2020 Erythrocyte distribution width (RBC) [Ratio] 13.9 % 11.8 - 14.4 % [place] Hematocrit (Bld) [Volume fraction] 40.8 % 36.3 - 47.1 % [place] Hemoglobin (Bld) [Mass/Vol] 12.2 g/dL 11.9 - 15.1 g/dL [place] MCH (RBC) [Entitic mass] 28.8 pg 25. 2 - 33.5 pg [place] MCHC (RBC) [Mass/Vol] 29.9 g/dL 28.4 - 34.8 g/dL [place] MCV (RBC) [Entitic vol] 96.5 fL 82.6 - 102.9 fL [place] Platelet mean volume (Bld) [Entitic vol] 9.7 fL 8.1 - 13.5 fL [place] Platelets (Bld) [#/Vol] 405 10*3/uL [place] RBC (Bld) [#/Vol] 4.23 10*6/uL 3.95 - 5.1 1 m/uL [place] WBC (Bld) [#/Vol] 0.0 10*3/uL 0.0 per 10 0 WBC [place] WBC (Bld) [#/Vol] 9.7 10*3/uL [place] Comprehensive Metabolic Pane riddhi 08-16-2020 Albumin [Mass/Vol] 3.9 g/dL 3.5 - 5.2 g/dL [place] Albumin/Globulin [Mass ratio] 1.3 {ratio} [place] ALP [Catalytic activity/Vol] 143 U/L High 35 - 104 U/L [place] ALT [Catalytic activity/Vol] 13 U/L 5 - 33 U/L [place] Anion gap [Moles/Vol] 14 mmol/L 9 - 17 mmol/L [place] AST [Catalytic activity/Vol] 17 U/L <32 [place] Bilirubin Ql (U) 0.26 mg/dL Low 0.3 - 1.2 mg/dL [place] Bun/Cre Ratio 40 High [place] Calcium [Mass/Vol] 9.4 mg/dL 8.6 - 10. 4 mg/dL [place] Chloride [Moles/Vol] 102 mmol/L 98 - 10 7 mmol/L [place] CO2 [Moles/Vol] 25 mmol/L 20 - 31 mmol/L [place] Creatinine [Mass/Vol] 1.24 mg/dL High 0.5 - 0.9 mg/dL [place] GFR 50 mL/min Low >60 [place] GFR Non- 41 mL/min Low >60 [place] Glucose [Mass/Vol] 104 mg/dL High 70 - 99 mg/dL [place] Interpretation and review of laboratory results Abnormal [place] Potassium [Moles/Vol] 4.2 mmol/L 3.7 - 5.3 mmol/L [place] Protein [Mass/Vol] 7.0 g/dL 6.4 - 8.3 g/dL [place] Sodium [Moles/Vol] 141 mmol/L 135 - 144 mmol/L [place] Urea nitrogen [Mass/Vol] 49 mg/dL High 8 - 23 mg/dL [place] Metabolic Panelon 08-16-2020 GFR/1.73 sq M predicted among non-blacks MDRD (S/P/Bld) [Vol rate/Area] [place] Comment on above: Average GFR for 70 o r more years old: 75 mL/min/1.73sq m Chronic Kidney Disease: <60 mL/min/1.73sq m Kidney failure: <15 mL/min/1.73sq m eGFR calculated using average adult body mass. Additional eGFR calculator available at: http://www.Usermind/multiple_crcl_2012.htm Stage 1: Some kidney damage normal GFR Stage 2: Mild kidney damage GFR 60-89 Stage 3: Moderate kidney damage GFR 30-59 Stage 4: Severe kidney damage GFR 15-29 Stage 5: Severe kidney damage GFR <15 ESRD - chronic treatment by dialysis or transplant Sedimentation Rateon 020 Interpretation and review of laboratory results Abnormal [place] Sed Rate 42 mm High 0 - 20 mm [place] CBCon 08-09-2020 Erythrocyte distribution width (RBC) [Ratio] 13.7 % 11.8 - 14.4 % [place] Hematocrit (Bld) [Volume fraction] 37.1 % 36.3 - 47.1 % [place] Hemoglobin (Bld) [Mass/Vol] 11.4 g/dL Low 11.9 - 15.1 g/dL [place] Interpretation and review of laboratory results Abnormal [place] MCH (RBC) [Entitic mass] 29.5 pg 25. 2 - 33.5 pg [place] MCHC (RBC) [Mass/Vol] 30.7 g/dL 28.4 - 34.8 g/dL [place] MCV (RBC) [Entitic vol] 96.1 fL 82.6 - 102.9 fL [place] Platelet mean volume (Bld) [Entitic vol] 10.0 fL 8.1 - 13.5 fL [place] Platelets (Bld) [#/Vol] 334 10*3/uL [place] RBC (Bld) [#/Vol] 3.86 10*6/uL Low 3.95 - 5.1 1 m/uL [place] WBC (Bld) [#/Vol] 10.0 10*3/uL [place] WBC (Bld) [#/Vol] 0.0 10*3/uL 0.0 per 10 0 WBC [place] Creatinine, Random Urineon 1 10-09-2019 Creatinine, Ur 25.9 mg/dL Low 28 - 217 mg/dL [place] Interpretation and review of laboratory results Abnormal [place] Ferritinon 08-09-2020 Ferritin [Mass/Vol] 179 ug/L High 13 - 150 ug/L [place] Iron and TIBCon 08-09-2020 Iron [Mass/Vol] 38 ug/dL 37 - 145 ug/dL [place] Iron Saturation 13 % Low 20 - 55 % [place] TIBC 291 ug/dL 250 - 450 ug/dL [place] UIBC 253 ug/dL 112 - 347 ug/dL [place] Magnesiumon 08-09-2020 Magnesium [Mass/Vol] 2.1 mg/dL 1.6 - 2 .6 mg/dL [place] Metabolic Panelon 08-09-2020 GFR/1.73 sq M predicted among non-blacks MDRD (S/P/Bld) [Vol rate/Area] [place] Comment on above: Average GFR for 70 o r more years old: 75 mL/min/1.73sq m Chronic Kidney Disease: <60 mL/min/1.73sq m Kidney failure: <15 mL/min/1.73sq m eGFR calculated using average adult body mass. Additional eGFR calculator available at: http://www.Usermind/multiple_crcl_2012.htm Stage 1: Some kidney damage normal GFR Stage 2: Mild kidney damage GFR 60-89 Stage 3: Moderate kidney damage GFR 30-59 Stage 4: Severe kidney damage GFR 15-29 Stage 5: Severe kidney damage GFR <15 ESRD - chronic treatment by dialysis or transplant Microscopic Urinalysison Amorphous, UA NOT REPORTED None [place] Bacteria, UA 1+ Abnormal None [place] Casts UA NOT REPORTED /LPF [place] Crystals, UA NOT REPORTED None /HPF [place] Epithelial Cells UA 5 TO 10 [place] Interpretation and review of laboratory results Abnormal [place] Mucus, UA NOT REPORTED None [place] Other Observations UA NOT REPORTED NOT REQ. M [place] RBC (U) [#/Vol] 2 TO 5 [place] Renal Epithelial, UA NOT REPORTED 0 /HPF [place] Trichomonas, UA NOT REPORTED None [place] WBC, UA 10 TO 20 [place] Yeast, UA NOT REPORTED None [place] Otheron 08-09-2020 Interpretation and review of laboratory results Abnormal [place] PTH, Intacton 08-09-2020 Pth Intact 40.39 pg/mL 15 - 65 pg/mL [place] Comment on above: SAMPLES FROM PATIENT S ROUTINELY RECEIVING HIGH DOSE BIOTIN THERAPY MAY SHOW FALSELY DEPRESSED RESULTS. ADDITIONAL INFORMATION MAY BE REQUIRED FOR DIAGNOSIS. Protein, urine, randomon Protein (U) [Mass/Vol] 10 mg/dL [place] Comment on above: No normal range esta blished. Renal Function Panelon 08-09 Albumin [Mass/Vol] 3.7 g/dL 3.5 - 5.2 g/dL [place] Anion gap [Moles/Vol] 14 mmol/L 9 - 17 mmol/L [place] Bun/Cre Ratio 38 High [place] Calcium [Mass/Vol] 9.2 mg/dL 8.6 - 10. 4 mg/dL [place] Chloride [Moles/Vol] 102 mmol/L 98 - 10 7 mmol/L [place] CO2 [Moles/Vol] 24 mmol/L 20 - 31 mmol/L [place] Creatinine [Mass/Vol] 1.07 mg/dL High 0.5 - 0.9 mg/dL [place] GFR 60 mL/min Low >60 [place] GFR Non- 49 mL/min Low >60 [place] Glucose [Mass/Vol] 111 mg/dL High 70 - 99 mg/dL [place] Interpretation and review of laboratory results Abnormal [place] Phosphate [Mass/Vol] 3.2 mg/dL 2.6 - 4 .5 mg/dL [place] Potassium [Moles/Vol] 3.9 mmol/L 3.7 - 5.3 mmol/L [place] Sodium [Moles/Vol] 140 mmol/L 135 - 144 mmol/L [place] Urea nitrogen [Mass/Vol] 41 mg/dL High 8 - 23 mg/dL [place] Uric Acidon 08-09-2020 Urate [Mass/Vol] 4.5 mg/dL 2.4 - 5.7 mg/dL [place] Urinalysis Reflex to Culture on 08-09-2020 Bilirubin Urine Negative NEGATIVE [place] Color, UA YELLOW YELLOW [place] Glucose, Ur Negative NEGATIVE [place] Interpretation and review of laboratory results Abnormal [place] Ketones Ql (U) Negative NEGATIVE [place] Leukocyte esterase Test strip Ql (U) LARGE Abnormal NEGATIVE [place] Nitrite, Urine Negative NEGATIVE [place] pH, UA 7.0 [place] Protein (U) [Mass/Vol] Negative NEGATIVE [place] Specific [place], UA 1.015 [place] Turbidity UA CLEAR CLEAR [place] Urinalysis Comments NOT REPORTED [place] Urine Hgb TRACE Abnormal NEGATIVE [place] Urobilinogen, Urine Normal Normal [place] CBCon 07-18-2020 Erythrocyte distribution width (RBC) [Ratio] 14.7 % High 11.8 - 14.4 % [place] Hematocrit (Bld) [Volume fraction] 34.6 % Low 36.3 - 47.1 % [place] Hemoglobin (Bld) [Mass/Vol] 10.3 g/dL Low 11.9 - 15.1 g/dL [place] Interpretation and review of laboratory results Abnormal [place] MCH (RBC) [Entitic mass] 30.1 pg 25. 2 - 33.5 pg [place] MCHC (RBC) [Mass/Vol] 29.8 g/dL 28.4 - 34.8 g/dL [place] MCV (RBC) [Entitic vol] 101.2 fL 82.6 - 102.9 fL [place] Platelet mean volume (Bld) [Entitic vol] 9.9 fL 8.1 - 13.5 fL [place] Platelets (Bld) [#/Vol] 328 10*3/uL [place] RBC (Bld) [#/Vol] 3.42 10*6/uL Low 3.95 - 5.1 1 m/uL [place] WBC (Bld) [#/Vol] 0.0 10*3/uL 0.0 per 10 0 WBC [place] WBC (Bld) [#/Vol] 7.5 10*3/uL [place] Creatinine, Random Urineon 1 Creatinine, Ur 97.1 mg/dL 28 - 217 mg/dL [place] Magnesiumon 07-18-2020 Magnesium [Mass/Vol] 2.2 mg/dL 1.6 - 2 .6 mg/dL [place] Metabolic Panelon 07-18-2020 GFR/1.73 sq M predicted among non-blacks MDRD (S/P/Bld) [Vol rate/Area] [place] Comment on above: Average GFR for 70 o r more years old: 75 mL/min/1.73sq m Chronic Kidney Disease: <60 mL/min/1.73sq m Kidney failure: <15 mL/min/1.73sq m eGFR calculated using average adult body mass. Additional eGFR calculator available at: http://www.Usermind/multiple_crcl_2012.htm Stage 1: Some kidney damage normal GFR Stage 2: Mild kidney damage GFR 60-89 Stage 3: Moderate kidney damage GFR 30-59 Stage 4: Severe kidney damage GFR 15-29 Stage 5: Severe kidney damage GFR <15 ESRD - chronic treatment by dialysis or transplant Microscopic Urinalysison Amorphous, UA NOT REPORTED None [place] Bacteria, UA NOT REPORTED None [place] Casts UA NOT REPORTED /LPF [place] Crystals, UA CALCIUM OXALATE Abnormal None /HPF [place] Crystals, UA 0 TO 2 Abnormal None /HPF [place] Epithelial Cells UA 2 TO 5 [place] Interpretation and review of laboratory results Abnormal [place] Mucus, UA NOT REPORTED None [place] Other Observations UA NOT REPORTED NOT REQ. [place] RBC (U) [#/Vol] 0 TO 2 [place] Renal Epithelial, UA NOT REPORTED 0 /HPF [place] Trichomonas, UA NOT REPORTED None [place] WBC, UA None [place] Yeast, UA NOT REPORTED None [place] PTH, Intacton 07-18-2020 Pth Intact 58.77 pg/mL 15 - 65 pg/mL [place] Comment on above: SAMPLES FROM PATIENT S ROUTINELY RECEIVING HIGH DOSE BIOTIN THERAPY MAY SHOW FALSELY DEPRESSED RESULTS. ADDITIONAL INFORMATION MAY BE REQUIRED FOR DIAGNOSIS. Protein, urine, randomon Protein (U) [Mass/Vol] 19 mg/dL [place] Comment on above: No normal range esta blished. Renal Function Panelon 07-18 Albumin [Mass/Vol] 3.3 g/dL Low 3.5 - 5.2 g/dL [place] Anion gap [Moles/Vol] 16 mmol/L 9 - 17 mmol/L [place] Bun/Cre Ratio 27 High [place] Calcium [Mass/Vol] 8.6 mg/dL 8.6 - 10. 4 mg/dL [place] Chloride [Moles/Vol] 102 mmol/L 98 - 10 7 mmol/L [place] CO2 [Moles/Vol] 25 mmol/L 20 - 31 mmol/L [place] Creatinine [Mass/Vol] 1.17 mg/dL High 0.5 - 0.9 mg/dL [place] GFR 54 mL/min Low >60 [place] GFR Non- 44 mL/min Low >60 [place] Glucose [Mass/Vol] 97 mg/dL 70 - 99 mg/dL [place] Interpretation and review of laboratory results Abnormal [place] Phosphate [Mass/Vol] 4.3 mg/dL 2.6 - 4 .5 mg/dL [place] Potassium [Moles/Vol] 3.9 mmol/L 3.7 - 5.3 mmol/L [place] Sodium [Moles/Vol] 143 mmol/L 135 - 144 mmol/L [place] Urea nitrogen [Mass/Vol] 32 mg/dL High 8 - 23 mg/dL [place] Uric Acidon 07-18-2020 Urate [Mass/Vol] 5.1 mg/dL 2.4 - 5.7 mg/dL [place] Urinalysis Reflex to Culture on 07-18-2020 Bilirubin Urine Negative NEGATIVE [place] Color, UA YELLOW YELLOW [place] Glucose, Ur Negative NEGATIVE [place] Interpretation and review of laboratory results Abnormal [place] Ketones Ql (U) Negative NEGATIVE [place] Leukocyte esterase Test strip Ql (U) Negative NEGATIVE [place] Nitrite, Urine Negative NEGATIVE [place] pH, UA 5.5 [place] Protein (U) [Mass/Vol] Negative NEGATIVE [place] Specific [place], UA 1.025 High [place] Turbidity UA CLEAR CLEAR [place] Urinalysis Comments NOT REPORTED [place] Urine Hgb Negative NEGATIVE [place] Urobilinogen, Urine Normal Normal [place] Basic Metabolic Panelon 06-27 Anion gap [Moles/Vol] 12 mmol/L 9 - 17 mmol/L [place] Bun/Cre Ratio 35 High [place] Calcium [Mass/Vol] 8.7 mg/dL 8.6 - 10. 4 mg/dL [place] Chloride [Moles/Vol] 105 mmol/L 98 - 10 7 mmol/L [place] CO2 [Moles/Vol] 24 mmol/L 20 - 31 mmol/L [place] Creatinine [Mass/Vol] 1.02 mg/dL High 0.5 - 0.9 mg/dL [place] GFR >60 >60 mL/min [place] GFR Non- 52 mL/min Low >60 [place] Glucose [Mass/Vol] 98 mg/dL 70 - 99 mg/dL [place] Interpretation and review of laboratory results Abnormal [place] Potassium [Moles/Vol] 4.0 mmol/L 3.7 - 5.3 mmol/L [place] Sodium [Moles/Vol] 141 mmol/L 135 - 144 mmol/L [place] Urea nitrogen [Mass/Vol] 36 mg/dL High 8 - 23 mg/dL [place] Metabolic Panelon 07-09-2020 GFR/1.73 sq M predicted among non-blacks MDRD (S/P/Bld) [Vol rate/Area] [place] Comment on above: Stage 1: Some [...] body mass. Additional eGFR calculator available at: http://[email or web address] Basic Metabolic Panelon Anion gap [Moles/Vol] 11 mmol/L 9 - 17 mmol/L [place] Bun/Cre Ratio 36 [place] Calcium [Mass/Vol] 9.0 mg/dL 8.6 - 10. 4 mg/dL [place] Chloride [Moles/Vol] 104 mmol/L 98 - 10 7 mmol/L [place] CO2 [Moles/Vol] 23 mmol/L 20 - 31 mmol/L [place] Creatinine [Mass/Vol] 1.59 mg/dL High 0.5 - 0.9 mg/dL [place] GFR 38 mL/min Low >60 [place] GFR Non- 31 mL/min Low >60 [place] Glucose [Mass/Vol] 82 mg/dL 70 - 99 mg/dL [place] Interpretation and review of laboratory results Abnormal [place] Potassium [Moles/Vol] 4.1 mmol/L 3.7 - 5.3 mmol/L [place] Sodium [Moles/Vol] 138 mmol/L 135 - 144 mmol/L [place] Urea nitrogen [Mass/Vol] 58 mg/dL High 8 - 23 mg/dL [place] Metabolic Panelon 07-01-2020 GFR/1.73 sq M predicted among non-blacks MDRD (S/P/Bld) [Vol rate/Area] [place] Comment on above: Stage 1: Some [...] body mass. Additional eGFR calculator available at: http://[email or web address] Basic Metabolic Panelon 05-29 Anion gap [Moles/Vol] 12 mmol/L 9 - 17 mmol/L [place] Bun/Cre Ratio 36 [place] Calcium [Mass/Vol] 8.9 mg/dL 8.6 - 10. 4 mg/dL [place] Chloride [Moles/Vol] 101 mmol/L 98 - 10 7 mmol/L [place] CO2 [Moles/Vol] 23 mmol/L 20 - 31 mmol/L [place] Creatinine [Mass/Vol] 1.34 mg/dL High 0.5 - 0.9 mg/dL [place] GFR 46 mL/min Low >60 [place] GFR Non- 38 mL/min Low >60 [place] Glucose [Mass/Vol] 112 mg/dL High 70 - 99 mg/dL [place] Interpretation and review of laboratory results Abnormal [place] Potassium [Moles/Vol] 4.5 mmol/L 3.7 - 5.3 mmol/L [place] Sodium [Moles/Vol] 136 mmol/L 135 - 144 mmol/L [place] Urea nitrogen [Mass/Vol] 48 mg/dL High 8 - 23 mg/dL [place] Infectious Disease Office/Cl inic Noteon 06-25-2020 [...] Manuel Ibarra MD 06/25/20 09:51 EDT Normal [facility] Metabolic Panelon 06-25-2020 GFR/1.73 sq M predicted among non-blacks MDRD (S/P/Bld) [Vol rate/Area] [facility], [place] Comment on above: Stage 1: Some kidney [...] body mass. Additional eGFR calculator available at: http://www.Usermind/multiple_crcl_2012.htm Provider Letteron 06-25-2020 Provider Letter Justino Dhaliwal DO [address] [place] [id number] Re: Jesús Nolan Date of Visit: 06/25/[address] Dhaliwal, Thank you for your referral to my office. Attached you will find the most recent office visit note. Please call if you have any questions or concerns. Sincerely, Manuel Ibarra MD [address] [place] [address], [place] [address] The following document(s) were included in the letter: June 25, 2020 09:49:14 EDT - (06/25/2020) Telehealth Office Visit Note Normal [facility] Lipid Panelon 06-19-2020 Cholesterol [Mass/Vol] 151 mg/dL <200 [place] Comment on above: Cholesterol Guidelines: <200 Desirable 200-240 Borderline >240 Undesirable Cholesterol in HDL [Mass/Vol] 58 mg/dL >40 [place] Comment on above: HDL Guidelines: <40 Undesirable 40-59 Borderline >59 Desirable Cholesterol in LDL [Mass/Vol] 72 mg/dL 0 - 130 mg/dL [place] Comment on above: LDL Guidelines: <100 Desirable 100-129 Near to/above Desirable 130-159 Borderline >159 Undesirable Direct (measured) LDL and calculated LDL are not interchangeable tests. Cholesterol in VLDL [Mass/Vol] NOT REPORTED 1 - 30 mg/dL [place] Cholesterol.total/Choles terol in HDL [Mass ratio] 2.6 {ratio} <5 [place] Triglyceride [Mass/Vol] 107 mg/dL <150 [place] Comment on above: Triglyceride Guidelines: <150 Desirable 150-199 Borderline 200-499 High >499 Very high Based on AHA Guidelines for fasting triglyceride, June 2012. C-Reactive Proteinon 020 CRP [Mass/Vol] 3.9 mg/L 0 - 5 mg/L [place] CBCon 06-12-2020 Erythrocyte distribution width (RBC) [Ratio] 17.4 % High 11.8 - 14.4 % [place] Hematocrit (Bld) [Volume fraction] 31.3 % Low 36.3 - 47.1 % [place] Hemoglobin (Bld) [Mass/Vol] 9.3 g/dL Low 11.9 - 15.1 g/dL [place] Interpretation and review of laboratory results Abnormal [place] MCH (RBC) [Entitic mass] 30.1 pg 25. 2 - 33.5 pg [place] MCHC (RBC) [Mass/Vol] 29.7 g/dL 28.4 - 34.8 g/dL [place] MCV (RBC) [Entitic vol] 101.3 fL 82.6 - 102.9 fL [place] Platelet mean volume (Bld) [Entitic vol] 9.5 fL 8.1 - 13.5 fL [place] Platelets (Bld) [#/Vol] 382 10*3/uL [place] RBC (Bld) [#/Vol] 3.09 10*6/uL Low 3.95 - 5.1 1 m/uL [place] WBC (Bld) [#/Vol] 0.0 10*3/uL 0.0 per 10 0 WBC [place] WBC (Bld) [#/Vol] 7.3 10*3/uL [place] Comprehensive Metabolic Pane riddhi 06-12-2020 Albumin [Mass/Vol] 2.9 g/dL Low 3.5 - 5.2 g/dL [place] Albumin/Globulin [Mass ratio] 1.1 {ratio} [place] ALP [Catalytic activity/Vol] 155 U/L High 35 - 104 U/L [place] ALT [Catalytic activity/Vol] 25 U/L 5 - 33 U/L [place] Anion gap [Moles/Vol] 10 mmol/L 9 - 17 mmol/L [place] AST [Catalytic activity/Vol] 22 U/L <32 [place] Bilirubin Ql (U) 0.24 mg/dL Low 0.3 - 1.2 mg/dL [place] Bun/Cre Ratio 23 High [place] Calcium [Mass/Vol] 8.6 mg/dL 8.6 - 10. 4 mg/dL [place] Chloride [Moles/Vol] 102 mmol/L 98 - 10 7 mmol/L [place] CO2 [Moles/Vol] 26 mmol/L 20 - 31 mmol/L [place] Creatinine [Mass/Vol] 1.03 mg/dL High 0.5 - 0.9 mg/dL [place] GFR >60 >60 mL/min [place] GFR Non- 51 mL/min Low >60 [place] Glucose [Mass/Vol] 110 mg/dL High 70 - 99 mg/dL [place] Interpretation and review of laboratory results Abnormal [place] Potassium [Moles/Vol] 4.1 mmol/L 3.7 - 5.3 mmol/L [place] Protein [Mass/Vol] 5.5 g/dL Low 6.4 - 8.3 g/dL [place] Sodium [Moles/Vol] 138 mmol/L 135 - 144 mmol/L [place] Urea nitrogen [Mass/Vol] 24 mg/dL High 8 - 23 mg/dL [place] Infectious Disease Office/Cl inic Noteon 06-12-2020 [...] system negative. Physical Exam Vitals at the [facility] of been okay. She appears to be [...] Use:. Family History Cancer: Sibling. Lab Results [place] studies of June 06 showed a white [...] Manuel Ibarra MD 06/12/20 14:48 EDT Normal [facility] Metabolic Panelon 06-12-2020 GFR/1.73 sq M predicted among non-blacks MDRD (S/P/Bld) [Vol rate/Area] [place] Comment on above: Average GFR for 70 o r more years old: 75 mL/min/1.73sq m Chronic Kidney Disease: <60 mL/min/1.73sq m Kidney failure: <15 mL/min/1.73sq m eGFR calculated using average adult body mass. Additional eGFR calculator available at: http://www.Usermind/multiple_crcl_2012.htm Stage 1: Some kidney damage normal GFR Stage 2: Mild kidney damage GFR 60-89 Stage 3: Moderate kidney damage GFR 30-59 Stage 4: Severe kidney damage GFR 15-29 Stage 5: Severe kidney damage GFR <15 ESRD - chronic treatment by dialysis or transplant Sedimentation Rateon 020 Interpretation and review of laboratory results Abnormal [place] Sed Rate 54 mm High 0 - 20 mm [place] C-Reactive Proteinon CRP [Mass/Vol] 6.5 mg/L High 0 - 5 mg/L [place] Interpretation and review of laboratory results Abnormal [place] CBCon 06-06-2020 Erythrocyte distribution width (RBC) [Ratio] 17.4 % High 11.8 - 14.4 % [place] Hematocrit (Bld) [Volume fraction] 30.6 % Low 36.3 - 47.1 % [place] Hemoglobin (Bld) [Mass/Vol] 9.0 g/dL Low 11.9 - 15.1 g/dL [place] Interpretation and review of laboratory results Abnormal [place] MCH (RBC) [Entitic mass] 30.2 pg 25. 2 - 33.5 pg [place] MCHC (RBC) [Mass/Vol] 29.4 g/dL 28.4 - 34.8 g/dL [place] MCV (RBC) [Entitic vol] 102.7 fL 82.6 - 102.9 fL [place] Platelet mean volume (Bld) [Entitic vol] 9.4 fL 8.1 - 13.5 fL [place] Platelets (Bld) [#/Vol] 356 10*3/uL [place] RBC (Bld) [#/Vol] 2.98 10*6/uL Low 3.95 - 5.1 1 m/uL [place] WBC (Bld) [#/Vol] 8.0 10*3/uL [place] WBC (Bld) [#/Vol] 0.0 10*3/uL 0.0 per 10 0 WBC [place] Comprehensive Metabolic Pane riddhi 06-06-2020 Albumin [Mass/Vol] 2.9 g/dL Low 3.5 - 5.2 g/dL [place] Albumin/Globulin [Mass ratio] 1.2 {ratio} [place] ALP [Catalytic activity/Vol] 170 U/L High 35 - 104 U/L [place] ALT [Catalytic activity/Vol] 13 U/L 5 - 33 U/L [place] Anion gap [Moles/Vol] 11 mmol/L 9 - 17 mmol/L [place] AST [Catalytic activity/Vol] 18 U/L <32 [place] Bilirubin Ql (U) 0.28 mg/dL Low 0.3 - 1.2 mg/dL [place] Bun/Cre Ratio 23 High [place] Calcium [Mass/Vol] 8.5 mg/dL Low 8.6 - 10. 4 mg/dL [place] Chloride [Moles/Vol] 106 mmol/L 98 - 10 7 mmol/L [place] CO2 [Moles/Vol] 23 mmol/L 20 - 31 mmol/L [place] Creatinine [Mass/Vol] 1.01 mg/dL High 0.5 - 0.9 mg/dL [place] GFR >60 >60 mL/min [place] GFR Non- 52 mL/min Low >60 [place] Glucose [Mass/Vol] 109 mg/dL High 70 - 99 mg/dL [place] Interpretation and review of laboratory results Abnormal [place] Potassium [Moles/Vol] 3.9 mmol/L 3.7 - 5.3 mmol/L [place] Protein [Mass/Vol] 5.4 g/dL Low 6.4 - 8.3 g/dL [place] Sodium [Moles/Vol] 140 mmol/L 135 - 144 mmol/L [place] Urea nitrogen [Mass/Vol] 23 mg/dL 8 - 23 mg/dL [place] Metabolic Panelon 06-06-2020 GFR/1.73 sq M predicted among non-blacks MDRD (S/P/Bld) [Vol rate/Area] [place] Comment on above: Average GFR for 70 o r more years old: 75 mL/min/1.73sq m Chronic Kidney Disease: <60 mL/min/1.73sq m Kidney failure: <15 mL/min/1.73sq m eGFR calculated using average adult body mass. Additional eGFR calculator available at: http://www.Usermind/multiple_crcl_2012.htm Stage 1: Some kidney damage normal GFR Stage 2: Mild kidney damage GFR 60-89 Stage 3: Moderate kidney damage GFR 30-59 Stage 4: Severe kidney damage GFR 15-29 Stage 5: Severe kidney damage GFR <15 ESRD - chronic treatment by dialysis or transplant Sedimentation Rateon 020 Interpretation and review of laboratory results Abnormal [place] Sed Rate 58 mm High 0 - 20 mm [place] C-Reactive Proteinon 020 CRP [Mass/Vol] 7.6 mg/L High 0 - 5 mg/L [place] Interpretation and review of laboratory results Abnormal [place] CBC Auto Differentialon Basophils (Bld) [#/Vol] 0.00 10*3/uL [place] Basophils/100 WBC (Bld) 0 % 0 - 2 % [place] Differential Type NOT REPORTED [place] Eosinophils (Bld) [#/Vol] 0.43 10*3/uL [place] Eosinophils/100 WBC (Bld) 8 % High 1 - 4 % [place] Erythrocyte distribution width (RBC) [Ratio] 17.0 % High 11.8 - 14.4 % [place] Hematocrit (Bld) [Volume fraction] 32.6 % Low 36.3 - 47.1 % [place] Hemoglobin (Bld) [Mass/Vol] 9.4 g/dL Low 11.9 - 15.1 g/dL [place] Immature granulocytes (Bld) [#/Vol] 1 % High 0 [place] Immature granulocytes (Bld) [#/Vol] 0.05 10*3/uL [place] Interpretation and review of laboratory results Abnormal [place] Lymphocytes (Bld) [#/Vol] 2.11 10*3/uL [place] Lymphocytes/100 WBC (Bld) 39 % 24 - 43 % [place] MCH (RBC) [Entitic mass] 29.5 pg 25. 2 - 33.5 pg [place] MCHC (RBC) [Mass/Vol] 28.8 g/dL 28.4 - 34.8 g/dL [place] MCV (RBC) [Entitic vol] 102.2 fL 82.6 - 102.9 fL [place] Monocytes (Bld) [#/Vol] 0.59 10*3/uL [place] Monocytes/100 WBC (Bld) 11 % 3 - 12 % [place] Morphology [place] (Bld) [Interp] HYPOCHROMASIA PRESENT [place] Platelet mean volume (Bld) [Entitic vol] 9.3 fL 8.1 - 13.5 fL [place] Platelets (Bld) [#/Vol] 398 10*3/uL [place] Platelets (Bld) [#/Vol] NOT REPORTED [place] RBC (Bld) [#/Vol] 3.19 10*6/uL Low 3.95 - 5.1 1 m/uL [place] RBC morphology finding Nom (Bld) NOT REPORTED [place] Segmented neutrophils/100 WBC (Bld) 41 % 36 - 65 % [place] Segs Absolute 2.22 [place] WBC (Bld) [#/Vol] 5.4 10*3/uL [place] WBC (Bld) [#/Vol] 0.0 10*3/uL 0.0 per 10 0 WBC [place] WBC Morphology NOT REPORTED [place] Comprehensive Metabolic Pane riddhi 05-30-2020 Albumin [Mass/Vol] 2.8 g/dL Low 3.5 - 5.2 g/dL [place] Albumin/Globulin [Mass ratio] 1.0 {ratio} [place] ALP [Catalytic activity/Vol] 147 U/L High 35 - 104 U/L [place] ALT [Catalytic activity/Vol] 7 U/L 5 - 33 U/L [place] Anion gap [Moles/Vol] 10 mmol/L 9 - 17 mmol/L [place] AST [Catalytic activity/Vol] 13 U/L <32 [place] Bilirubin Ql (U) 0.23 mg/dL Low 0.3 - 1.2 mg/dL [place] Bun/Cre Ratio 16 [place] Calcium [Mass/Vol] 8.5 mg/dL Low 8.6 - 10. 4 mg/dL [place] Chloride [Moles/Vol] 104 mmol/L 98 - 10 7 mmol/L [place] CO2 [Moles/Vol] 23 mmol/L 20 - 31 mmol/L [place] Creatinine [Mass/Vol] 1.3 mg/dL High 0.5 - 0.9 mg/dL [place] GFR 48 mL/min Low >60 [place] GFR Non- 39 mL/min Low >60 [place] Glucose [Mass/Vol] 101 mg/dL High 70 - 99 mg/dL [place] Interpretation and review of laboratory results Abnormal [place] Potassium [Moles/Vol] 4.1 mmol/L 3.7 - 5.3 mmol/L [place] Protein [Mass/Vol] 5.6 g/dL Low 6.4 - 8.3 g/dL [place] Sodium [Moles/Vol] 137 mmol/L 135 - 144 mmol/L [place] Urea nitrogen [Mass/Vol] 21 mg/dL 8 - 23 mg/dL [place] Metabolic Panelon 05-30-2020 GFR/1.73 sq M predicted among non-blacks MDRD (S/P/Bld) [Vol rate/Area] [place] Comment on above: Stage 1: Some [...] body mass. Additional eGFR calculator available at: http://www.Usermind/multiple_crcl_2012.htm Sedimentation Rateon 020 Interpretation and review of laboratory results Abnormal [place] Sed Rate 44 mm High 0 - 20 mm [place] Infectious Disease Office/Cl inic Noteon 05-29-2020 [...] Manuel Ibarra MD 05/29/20 14:48 EDT Normal [facility] C-Reactive Proteinon 020 CRP [Mass/Vol] 52.4 mg/L High 0 - 5 mg/L [place] Interpretation and review of laboratory results Abnormal [place] CBC Auto Differentialon 04-28 Basophils (Bld) [#/Vol] 0.03 10*3/uL [place] Basophils/100 WBC (Bld) 0 % 0 - 2 % [place] Differential Type NOT REPORTED [place] Eosinophils (Bld) [#/Vol] 0.27 10*3/uL [place] Eosinophils/100 WBC (Bld) 3 % 1 - 4 % [place] Erythrocyte distribution width (RBC) [Ratio] 16.5 % High 11.8 - 14.4 % [place] Hematocrit (Bld) [Volume fraction] 27.8 % Low 36.3 - 47.1 % [place] Hemoglobin (Bld) [Mass/Vol] 8.5 g/dL Low 11.9 - 15.1 g/dL [place] Immature granulocytes (Bld) [#/Vol] 0.09 10*3/uL [place] Immature granulocytes (Bld) [#/Vol] 1 % High 0 [place] Interpretation and review of laboratory results Abnormal [place] Lymphocytes (Bld) [#/Vol] 1.64 10*3/uL [place] Lymphocytes/100 WBC (Bld) 16 % Low 24 - 43 % [place] MCH (RBC) [Entitic mass] 30.1 pg 25. 2 - 33.5 pg [place] MCHC (RBC) [Mass/Vol] 30.6 g/dL 28.4 - 34.8 g/dL [place] MCV (RBC) [Entitic vol] 98.6 fL 82.6 - 102.9 fL [place] Monocytes (Bld) [#/Vol] 1.02 10*3/uL [place] Monocytes/100 WBC (Bld) 10 % 3 - 12 % [place] Platelet mean volume (Bld) [Entitic vol] 9.2 fL 8.1 - 13.5 fL [place] Platelets (Bld) [#/Vol] NOT REPORTED [place] Platelets (Bld) [#/Vol] 516 10*3/uL [place] RBC (Bld) [#/Vol] 2.82 10*6/uL Low 3.95 - 5.1 1 m/uL [place] RBC morphology finding Nom (Bld) NOT REPORTED [place] Segmented neutrophils/100 WBC (Bld) 70 % High 36 - 65 % [place] Segs Absolute 7.00 [place] WBC (Bld) [#/Vol] 0.0 10*3/uL 0.0 per 10 0 WBC [place] WBC (Bld) [#/Vol] 10.1 10*3/uL [place] WBC Morphology NOT REPORTED [place] Comprehensive Metabolic Pane riddhi 05-23-2020 Albumin [Mass/Vol] 3 g/dL Low 3.5 - 5.2 g/dL [place] Albumin/Globulin [Mass ratio] 1.1 {ratio} [place] ALP [Catalytic activity/Vol] 152 U/L High 35 - 104 U/L [place] ALT [Catalytic activity/Vol] 11 U/L 5 - 33 U/L [place] Anion gap [Moles/Vol] 12 mmol/L 9 - 17 mmol/L [place] AST [Catalytic activity/Vol] 27 U/L <32 [place] Bilirubin Ql (U) 0.37 mg/dL 0.3 - 1.2 mg/dL [place] Bun/Cre Ratio 10 [place] Calcium [Mass/Vol] 8.4 mg/dL Low 8.6 - 10. 4 mg/dL [place] Chloride [Moles/Vol] 103 mmol/L 98 - 10 7 mmol/L [place] CO2 [Moles/Vol] 23 mmol/L 20 - 31 mmol/L [place] Creatinine [Mass/Vol] 1.53 mg/dL High 0.5 - 0.9 mg/dL [place] GFR 39 mL/min Low >60 [place] GFR Non- 32 mL/min Low >60 [place] Glucose [Mass/Vol] 87 mg/dL 70 - 99 mg/dL [place] Interpretation and review of laboratory results Abnormal [place] Potassium [Moles/Vol] 3.7 mmol/L 3.7 - 5.3 mmol/L [place] Protein [Mass/Vol] 5.7 g/dL Low 6.4 - 8.3 g/dL [place] Sodium [Moles/Vol] 138 mmol/L 135 - 144 mmol/L [place] Urea nitrogen [Mass/Vol] 16 mg/dL 8 - 23 mg/dL [place] Metabolic Panelon 05-23-2020 GFR/1.73 sq M predicted among non-blacks MDRD (S/P/Bld) [Vol rate/Area] [place] Comment on above: Average GFR for 70 o r more years old: 75 mL/min/1.73sq m Chronic Kidney Disease: <60 mL/min/1.73sq m Kidney failure: <15 mL/min/1.73sq m eGFR calculated using average adult body mass. Additional eGFR calculator available at: http://www.Usermind/multiple_crcl_2012.htm Stage 1: Some kidney damage normal GFR Stage 2: Mild kidney damage GFR 60-89 Stage 3: Moderate kidney damage GFR 30-59 Stage 4: Severe kidney damage GFR 15-29 Stage 5: Severe kidney damage GFR <15 ESRD - chronic treatment by dialysis or transplant Sedimentation Rateon 020 Interpretation and review of laboratory results Abnormal [place] Sed Rate 70 mm High 0 - 20 mm [place] Infectious Disease Office/Cl inic Noteon 05-22-2020 [...] on February 08. She was discharged to [facility] on February 14. She made progress and was discharged home the . However within 3 days on the she was readmitted to [facility]. X-rays were done in follow-up and there [...] Manuel Ibarra MD 05/22/20 17:13 EDT Normal [facility] CBC Auto Differentialon 04-28 Basophils (Bld) [#/Vol] 10*3/uL [place] Basophils/100 WBC (Bld) 0 % 0 - 2 % [place] Differential Type NOT REPORTED [place] Eosinophils (Bld) [#/Vol] 0.26 10*3/uL [place] Eosinophils/100 WBC (Bld) 3 % 1 - 4 % [place] Erythrocyte distribution width (RBC) [Ratio] 15.0 % High 11.8 - 14.4 % [place] Hematocrit (Bld) [Volume fraction] 27.8 % Low 36.3 - 47.1 % [place] Hemoglobin (Bld) [Mass/Vol] 8.4 g/dL Low 11.9 - 15.1 g/dL [place] Immature granulocytes (Bld) [#/Vol] 0.11 10*3/uL [place] Immature granulocytes (Bld) [#/Vol] 1 % High 0 [place] Interpretation and review of laboratory results Abnormal [place] Lymphocytes (Bld) [#/Vol] 1.84 10*3/uL [place] Lymphocytes/100 WBC (Bld) 19 % Low 24 - 43 % [place] MCH (RBC) [Entitic mass] 29.6 pg 25. 2 - 33.5 pg [place] MCHC (RBC) [Mass/Vol] 30.2 g/dL 28.4 - 34.8 g/dL [place] MCV (RBC) [Entitic vol] 97.9 fL 82.6 - 102.9 fL [place] Monocytes (Bld) [#/Vol] 1.08 10*3/uL [place] Monocytes/100 WBC (Bld) 11 % 3 - 12 % [place] Platelet mean volume (Bld) [Entitic vol] 9.4 fL 8.1 - 13.5 fL [place] Platelets (Bld) [#/Vol] NOT REPORTED [place] Platelets (Bld) [#/Vol] 431 10*3/uL [place] RBC (Bld) [#/Vol] 2.84 10*6/uL Low 3.95 - 5.1 1 m/uL [place] RBC morphology finding Nom (Bld) NOT REPORTED [place] Segmented neutrophils/100 WBC (Bld) 66 % High 36 - 65 % [place] Segs Absolute 6.43 [place] WBC (Bld) [#/Vol] 0.0 10*3/uL 0.0 per 10 0 WBC [place] WBC (Bld) [#/Vol] 9.7 10*3/uL [place] WBC Morphology NOT REPORTED [place] Comprehensive Metabolic Pane riddhi 05-17-2020 Albumin [Mass/Vol] 2.2 g/dL Low 3.5 - 5.2 g/dL [place] Albumin/Globulin [Mass ratio] 0.7 {ratio} Low [place] ALP [Catalytic activity/Vol] 102 U/L 35 - 104 U/L [place] ALT [Catalytic activity/Vol] 7 U/L 5 - 33 U/L [place] Anion gap [Moles/Vol] 8 mmol/L Low 9 - 17 mmol/L [place] AST [Catalytic activity/Vol] 14 U/L <32 [place] Bilirubin Ql (U) 0.27 mg/dL Low 0.3 - 1.2 mg/dL [place] Bun/Cre Ratio 17 [place] Calcium [Mass/Vol] 8.4 mg/dL Low 8.6 - 10. 4 mg/dL [place] Chloride [Moles/Vol] 100 mmol/L 98 - 10 7 mmol/L [place] CO2 [Moles/Vol] 26 mmol/L 20 - 31 mmol/L [place] Creatinine [Mass/Vol] 1.01 mg/dL High 0.5 - 0.9 mg/dL [place] GFR >60 >60 mL/min [place] GFR Non- 52 mL/min Low >60 [place] Glucose [Mass/Vol] 124 mg/dL High 70 - 99 mg/dL [place] Interpretation and review of laboratory results Abnormal [place] Potassium [Moles/Vol] 4.1 mmol/L 3.7 - 5.3 mmol/L [place] Protein [Mass/Vol] 5.2 g/dL Low 6.4 - 8.3 g/dL [place] Sodium [Moles/Vol] 134 mmol/L Low 135 - 144 mmol/L [place] Urea nitrogen [Mass/Vol] 17 mg/dL 8 - 23 mg/dL [place] Metabolic Panelon 05-17-2020 GFR/1.73 sq M predicted among non-blacks MDRD (S/P/Bld) [Vol rate/Area] [place] Comment on above: Stage 1: Some [...] body mass. Additional eGFR calculator available at: http://www.Usermind/multiple_crcl_2012.htm HGB,HCTon 05-15-2020 Hematocrit (Bld) [Volume fraction] 26.2 % Low 37.0-47.0 [facility] Comment on above: Performed By: #### C BCWD, BMP, ANION, EGFR1 #### [facility] [employer] [address] [place] [address] Hemoglobin (Bld) [Mass/Vol] 8.3 gm/dl Low 12.0-16.0 [facility] Comment on above: Performed By: #### C BCWD, BMP, ANION, EGFR1 #### [facility] [address] [place] [phone] Hemoglobin and hematocrit, b loodon 05-15-2020 Hematocrit (Bld) [Volume fraction] 26.2 % Low 37 - 47 % [place] Comment on above: Performed at [facility] [address] [place] [address] Hemoglobin (Bld) [Mass/Vol] 8.3 g/dL Low [place] Interpretation and review of laboratory results Abnormal [place] ANION GAPon 05-14-2020 Anion gap [Moles/Vol] 9.0 mmol/L Normal 8.0-16.0 [facility] Comment on above: Result Comment: ANIO N GAP = Sodium -(Chloride + CO2) Performed By: #### C BCWD, BMP, ANION, EGFR1 #### [facility] [address] [place] [address] Anion Gapon 05-14-2020 Anion gap [Moles/Vol] 9.0 mmol/L 8 - 16 meq/L [facility], [place] Comment on above: ANION GAP = Sodium - (Chloride + CO2) Performed at [facility] [address] [place] [address] BASIC METABOL PANELon 2019 Calcium [Mass/Vol] 7.6 mg/dL Low 8.5-10.5 [facility] Comment on above: Performed By: #### C BCWD, BMP, ANION, EGFR1 #### [place] [address] Chloride [Moles/Vol] 105 mmol/L Normal 98-111 [facility] Comment on above: Performed By: #### C BCWD, BMP, ANION, EGFR1 #### [facility] [address] [place] [phone] CO2 [Moles/Vol] 24 mmol/L Normal 23-33 [facility] Comment on above: Performed By: #### C BCWD, BMP, ANION, EGFR1 #### [facility] [employer] [address] [place] [address] Creatinine [Mass/Vol] 1.1 mg/dL Normal 0.4-1.2 [facility] Comment on above: Performed By: #### C BCWD, BMP, ANION, EGFR1 #### [facility] [address] [place] [address] Glucose [Mass/Vol] 104 mg/dL Normal 70-108 [facility] Comment on above: Performed By: #### C BCWD, BMP, ANION, EGFR1 #### [facility] [address] [place] [address] Potassium [Moles/Vol] 4.0 mmol/L Normal 3.5-5.2 [facility] Comment on above: Performed By: #### C BCWD, BMP, ANION, EGFR1 #### [facility] [address] [place] [address] Sodium [Moles/Vol] 138 mmol/L Normal 135-145 [facility] Comment on above: Performed By: #### C BCWD, BMP, ANION, EGFR1 #### [facility] [address] [place] [address] Urea nitrogen [Mass/Vol] 18 mg/dL Normal 7-22 [facility] Comment on above: Performed By: #### C BCWD, BMP, ANION, EGFR1 #### [facility] [address] [place] [address] Basic Metabolic Panelon 04-27 Calcium [Mass/Vol] 7.6 mg/dL Low 8.5 - 10. 5 mg/dL [place] Comment on above: Performed at [facility] [address] [place] [id number] Chloride [Moles/Vol] 105 mmol/L 98 - 11 1 meq/L [place], [place] CO2 [Moles/Vol] 24 mmol/L 23 - 33 meq/L [place] Creatinine [Mass/Vol] 1.1 mg/dL 0.4 - 1.2 mg/dL [place] Glucose [Mass/Vol] 104 mg/dL 70 - 108 mg/dL [place] Potassium [Moles/Vol] 4.0 mmol/L 3.5 - 5.2 meq/L [place] Sodium [Moles/Vol] 138 mmol/L 135 - 145 meq/L [place] Urea nitrogen [Mass/Vol] 18 mg/dL 7 - 22 mg/dL [place] CBC Auto Differentialon 04-27 Basophils (Bld) [#/Vol] 0.0 10*3/uL [place] Basophils/100 WBC (Bld) 0.2 % [place] Eosinophils (Bld) [#/Vol] 0.2 10*3/uL [place] Eosinophils/100 WBC (Bld) 2 % [place] Erythrocyte distribution width (RBC) [Ratio] 15.2 % High 11.5 - 14.5 % [place] Hematocrit (Bld) [Volume fraction] 23.1 % Low 37 - 47 % [place] Hemoglobin (Bld) [Mass/Vol] 7.0 g/dL Critically low [place] Immature Grans (Abs) 0.07 [place], [place] Immature granulocytes (Bld) [#/Vol] 0.7 % [place] Interpretation and review of laboratory results Abnormal [place] Lymphocytes (Bld) [#/Vol] 2.0 10*3/uL [place] Lymphocytes/100 WBC (Bld) 19.6 % [place] MCH (RBC) [Entitic mass] 29.4 pg 26 - 33 pg [place] MCHC (RBC) [Mass/Vol] 30.3 g/dL [place] MCV (RBC) [Entitic vol] 97.1 fL 81 - 99 fL [place] Monocytes (Bld) [#/Vol] 0.9 10*3/uL [place] Monocytes/100 WBC (Bld) 8.4 % [place] Nucleated RBC/100 WBC (Bld) [Ratio] 0 % /100 wbc [place] Pathologist Review Shona VILLAFANA [place] Platelet mean volume (Bld) [Entitic vol] 9.5 fL 9.4 - 12.4 fL [place] Platelets (Bld) [#/Vol] ADEQUATE Adequate [place] Platelets (Bld) [#/Vol] 385 10*3/uL [place] RBC (Bld) [#/Vol] 2.38 10*6/uL [place] RDW-SD 53.4 fL High 35 - 45 fL [place] SLIGHT Absent [place] Comment on above: Performed at [facility] [address] [place] [address] Segmented neutrophils/100 WBC (Bld) 69.1 % [place] Segs Absolute 7.0 [place] WBC (Bld) [#/Vol] 10.2 10*3/uL [facility] [place], [place] CBC WITH DIFFERENTIALon 04-27 PATHOLOGIST REVIEWED Shona VILLAFANA Normal [facility] Comment on above: Performed By: #### C BCWD, BMP, ANION, EGFR1 #### [employer] [address] [place] [address] Platelets (Bld) [#/Vol] ADEQUATE Normal Adequate [facility] Comment on above: Performed By: #### C BCWD, BMP, ANION, EGFR1 #### [employer] [address] [place] [address] ROULEAUX SLIGHT Normal Absent [facility] Comment on above: Performed By: #### C BCWD, BMP, ANION, EGFR1 #### [facility] [address] [place] [address] ABS IMMATURE GRANS (IG) 0.07 thou/mm3 Normal 0.00-0.07 [facility] Comment on above: Performed By: #### C BCWD, BMP, ANION, EGFR1 #### [employer] [address] [place] [address] ABS NEUTROPHILS 7.0 thou/mm3 Normal 1.8-7.7 [facility] Comment on above: Performed By: #### C BCWD, BMP, ANION, EGFR1 #### [employer] [address] [place] [address] Basophils (Bld) [#/Vol] 0.0 thou/mm3 Normal 0.0-0.1 [facility] Comment on above: Performed By: #### C BCWD, BMP, ANION, EGFR1 #### [employer] [address] [place] [address] Basophils/100 WBC (Bld) 0.2 % Normal [facility] Comment on above: Performed By: #### C BCWD, BMP, ANION, EGFR1 #### [employer] [address] [place] [address] Eosinophils (Bld) [#/Vol] 0.2 thou/mm3 Normal 0.0-0.4 [facility] Comment on above: Performed By: #### C BCWD, BMP, ANION, EGFR1 #### [address] [address] Eosinophils/100 WBC (Bld) 2.0 % Normal [facility] Comment on above: Performed By: #### C BCWD, BMP, ANION, EGFR1 #### [facility] [address] [place] [address] Erythrocyte distribution width (RBC) [Ratio] 15.2 % High 11.5-14.5 [facility] Comment on above: Performed By: #### C BCWD, BMP, ANION, EGFR1 #### [address] [address] Hematocrit (Bld) [Volume fraction] 23.1 % Low 37.0-47.0 [facility] Comment on above: Performed By: #### C BCWD, BMP, ANION, EGFR1 #### [address] [address] Hemoglobin (Bld) [Mass/Vol] 7.0 gm/dl Critically low 12.0-16.0 [facility] Comment on above: Performed By: #### C BCWD, BMP, ANION, EGFR1 #### [address] [address] IMMATURE GRANS (IG) 0.7 % Normal [facility] Comment on above: Performed By: #### C BCWD, BMP, ANION, EGFR1 #### [address] [address] Lymphocytes (Bld) [#/Vol] 2.0 thou/mm3 Normal 1.0-4.8 [facility] Comment on above: Performed By: #### C BCWD, BMP, ANION, EGFR1 #### [address] [address] Lymphocytes/100 WBC (Bld) 19.6 % Normal [facility] Comment on above: Performed By: #### C BCWD, BMP, ANION, EGFR1 #### [facility] [address] [place] [address] MCH (RBC) [Entitic mass] 29.4 pg Normal 26.0-33.0 [facility] Comment on above: Performed By: #### C BCWD, BMP, ANION, EGFR1 #### [address] [address] MCHC (RBC) [Mass/Vol] 30.3 gm/dl Low 32.2-35.5 [facility] Comment on above: Performed By: #### C BCWD, BMP, ANION, EGFR1 #### [address] [address] MCV (RBC) [Entitic vol] 97.1 fL Normal 81.0-99.0 [facility] Comment on above: Performed By: #### C BCWD, BMP, ANION, EGFR1 #### [address] [address] Monocytes (Bld) [#/Vol] 0.9 thou/mm3 Normal 0.4-1.3 [facility] Comment on above: Performed By: #### C BCWD, BMP, ANION, EGFR1 #### [address] [address] Monocytes/100 WBC (Bld) 8.4 % Normal [facility] Comment on above: Performed By: #### C BCWD, BMP, ANION, EGFR1 #### [address] [address] Neutrophils/100 WBC (Bld) 69.1 % Normal [facility] Comment on above: Performed By: #### C BCWD, BMP, ANION, EGFR1 #### [address] [address] Nucleated RBC/100 WBC (Bld) [Ratio] 0 /100 wbc Normal [facility] Comment on above: Performed By: #### C BCWD, BMP, ANION, EGFR1 #### [address] [address] Platelet mean volume (Bld) [Entitic vol] 9.5 fL Normal 9.4-12.4 [facility] Comment on above: Performed By: #### C BCWD, BMP, ANION, EGFR1 #### [employer] [address] [place] [address] Platelets (Bld) [#/Vol] 385 thou/mm3 Normal 130-400 [facility] Comment on above: Performed By: #### C BCWD, BMP, ANION, EGFR1 #### [address] [address] RBC (Bld) [#/Vol] 2.38 mill/mm3 Low 4.20-5.40 [facility] Comment on above: Performed By: #### C BCWD, BMP, ANION, EGFR1 #### [address] [address] RDW-SD 53.4 fL High 35.0-45.0 [facility] Comment on above: Performed By: #### C BCWD, BMP, ANION, EGFR1 #### [address] [address] WBC (Bld) [#/Vol] 10.2 thou/mm3 Normal 4.8-10.8 [facility] Comment on above: Performed By: #### C BCWD, BMP, ANION, EGFR1 #### [address] [address] GFR, ESTIMATEDon 05-14-2020 GFR/1.73 sq M.predicted MDRD (S/P/Bld) [Vol rate/Area] 47 ml/min/1.73m2 Abnormal [facility] Comment on above: Result Comment: Stag latanya Description GFR, ml/min/1.73 m2 - At increased [...] C BCWD, BMP, ANION, EGFR1 #### [address] [address] Glomerular Filtration Rate, Estimatedon 05-14-2020 Est, Glooswaldo Filt Rate 47 Abnormal ml/min/1 .73 m2 [place] Comment on above: Stage Description GF [...] Vol. 139 (2) pg 137-147. Performed at [facility] [address] [place] [address] HGB,HCTon 05-14-2020 Hematocrit (Bld) [Volume fraction] 27.1 % Low 37.0-47.0 [facility] Comment on above: Performed By: #### C BCWD, BMP, ANION, EGFR1 #### [facility] [address] [place] [address] Hemoglobin (Bld) [Mass/Vol] 8.2 gm/dl Low 12.0-16.0 [facility] Comment on above: Performed By: #### C BCWD, BMP, ANION, EGFR1 #### [facility] [address] [place] [address] Hemoglobin and hematocrit, b loodon 05-14-2020 Hematocrit (Bld) [Volume fraction] 27.1 % Low 37 - 47 % [place] Comment on above: Performed at [facility] [address] [place] [address] Hemoglobin (Bld) [Mass/Vol] 8.2 g/dL Low [place] Interpretation and review of laboratory results Abnormal [place] LEUKO-REDUCED RCon 0 -1 IRR LEUKO-REDUCED RC [id number] transfused Normal [facility] Comment on above: Performed By: #### C BCWD, BMP, ANION, EGFR1 #### [facility] [address] [place] [address] Otheron 05-14-2020 Interpretation and review of laboratory results Abnormal [place] SCAN OF BLOOD SMEARon 2019 SCAN OF BLOOD SMEAR see below Normal [facility] Comment on above: Result Comment: Alix german Exceeded; Scan of Differential Slide Performed Performed By: #### C BCWD, BMP, ANION, EGFR1 #### [facility] [address] [place] [address] Scan of Blood Smearon 2019 SCAN OF BLOOD SMEAR see below [place] Comment on above: Criteria Exceeded; S can of Differential Slide Performed Performed at [facility] [address] [place] [address] TYPE AND SCREENon 05-14-2020 ABO A [place], [place] Rh Factor Positive [place] TYPE AND SCREEN CAPTUREon ABO CAPTURE A Normal [facility] Comment on above: Performed By: #### C BCWD, BMP, ANION, EGFR1 #### [facility] [address] [place] [address] INDIRECT AUTUMN CAPTURE Negative Normal [facility] Comment on above: Performed By: #### C BCWD, BMP, ANION, EGFR1 #### [facility] [address] [place] [address] RH CAPTURE (2 D CLONES) Positive Normal [facility] Comment on above: Performed By: #### C BCWD, BMP, ANION, EGFR1 #### [facility] [address] [place] [address] XR FOOT LEFT (MIN 3 VIEWS)on 05-14-2020 [...] Rodrick Baker MD 05/14/20 Final result Normal [facility] 1. Osteoporosis. Multifocal degenerative changes. 2. Soft tissue swelling of the foot. Questionable small erosion first metatarsal head versus cortical cyst.. Cannot exclude gout. This report has been created using voice recognition software. It may contain minor errors which are inherent in voice recognition technology. Final report electronically signed by Dr. Rodrick Baker on 05/14/2020 8:45 AM [facility] PROCED[facility]: XR FOOT LEFT (MIN 3 VIEWS) [...] the first metatarsal head. Cannot exclude gout. [facility] [place], [facility] Incoming Radiant Results From [employer] - 05/14/2020 8:47 AM EDT PROCEDURE: XR [...] Dr. Rodrick Baker on 05/14/2020 8:45 AM [place] ANION GAPon 05-13-2020 Anion gap [Moles/Vol] 10.0 mmol/L Normal 8.0-16.0 [facility] Comment on above: Result Comment: ANIO N GAP = Sodium -(Chloride + CO2) Performed By: #### C BCWD, BMP, ANION, EGFR1 #### [facility] [address] [address] Anion Gapon 05-13-2020 Anion gap [Moles/Vol] 10.0 mmol/L 8 - 16 meq/L [place] Comment on above: ANION GAP = Sodium - (Chloride + CO2) Performed at [facility] [address] [place] [address] BASIC METABOL PANELon 2019 Calcium [Mass/Vol] 7.8 mg/dL Low 8.5-10.5 [facility] Comment on above: Performed By: #### C BCWD, BMP, ANION, EGFR1 #### [facility] [address] [address] Chloride [Moles/Vol] 102 mmol/L Normal 98-111 [facility] Comment on above: Performed By: #### C BCWD, BMP, ANION, EGFR1 #### [facility] [address] [place] [address] CO2 [Moles/Vol] 23 mmol/L Normal 23-33 [facility] Comment on above: Performed By: #### C BCWD, BMP, ANION, EGFR1 #### [facility] [address] [place] [address] Creatinine [Mass/Vol] 1.0 mg/dL Normal 0.4-1.2 [facility] Comment on above: Performed By: #### C BCWD, BMP, ANION, EGFR1 #### [facility] [address] [place] [address] Glucose [Mass/Vol] 151 mg/dL High 70-108 [facility] Comment on above: Performed By: #### C BCWD, BMP, ANION, EGFR1 #### [facility] [address] [place] [address] Potassium [Moles/Vol] 4.0 mmol/L Normal 3.5-5.2 [facility] Comment on above: Performed By: #### C BCWD, BMP, ANION, EGFR1 #### [facility] [address] [place] [address] Sodium [Moles/Vol] 135 mmol/L Normal 135-145 [facility] Comment on above: Performed By: #### C BCWD, BMP, ANION, EGFR1 #### [facility] [address] [place] [address] Urea nitrogen [Mass/Vol] 18 mg/dL Normal 7-22 [facility] Comment on above: Performed By: #### C BCWD, BMP, ANION, EGFR1 #### [facility] [address] [place] [address] Basic Metabolic Panelon 04-27 Calcium [Mass/Vol] 7.8 mg/dL Low 8.5 - 10. 5 mg/dL [place] Comment on above: Performed at [facility] [address] [place] [address] Chloride [Moles/Vol] 102 mmol/L 98 - 11 1 meq/L [place] CO2 [Moles/Vol] 23 mmol/L 23 - 33 meq/L [place] Creatinine [Mass/Vol] 1 mg/dL 0.4 - 1.2 mg/dL [place] Glucose [Mass/Vol] 151 mg/dL High 70 - 108 mg/dL [place] Potassium [Moles/Vol] 4.0 mmol/L 3.5 - 5.2 meq/L [place] Sodium [Moles/Vol] 135 mmol/L 135 - 145 meq/L [place] Urea nitrogen [Mass/Vol] 18 mg/dL 7 - 22 mg/dL [place] CBC Auto Differentialon 04-27 Basophils (Bld) [#/Vol] 0.0 10*3/uL [place] Basophils/100 WBC (Bld) 0.1 % [place], [place] Eosinophils (Bld) [#/Vol] 0.1 10*3/uL [place] Eosinophils/100 WBC (Bld) 1.3 % [place] Erythrocyte distribution width (RBC) [Ratio] 15.1 % High 11.5 - 14.5 % [place] Hematocrit (Bld) [Volume fraction] 25.0 % Low 37 - 47 % [place] Hemoglobin (Bld) [Mass/Vol] 7.6 g/dL [place] Immature Grans (Abs) 0.12 High [place], [place] Immature granulocytes (Bld) [#/Vol] 1 % [place] Interpretation and review of laboratory results Abnormal [place] Lymphocytes (Bld) [#/Vol] 1.5 10*3/uL [place] Lymphocytes/100 WBC (Bld) 13.4 % [place] MCH (RBC) [Entitic mass] 30.0 pg 26 - 33 pg [place] MCHC (RBC) [Mass/Vol] 30.4 g/dL [place] MCV (RBC) [Entitic vol] 98.8 fL 81 - 99 fL [place] Monocytes (Bld) [#/Vol] 0.8 10*3/uL [place] Monocytes/100 WBC (Bld) 7.3 % [place] Nucleated RBC/100 WBC (Bld) [Ratio] 0 % /100 wbc [place] Comment on above: Performed at [facility] [address] [place] [address] Platelet mean volume (Bld) [Entitic vol] 9.5 fL 9.4 - 12.4 fL [place] Platelets (Bld) [#/Vol] 396 10*3/uL [place] RBC (Bld) [#/Vol] 2.53 10*6/uL Low [facility] [place], [place] RDW-SD 54.4 fL High 35 - 45 fL [place] Segmented neutrophils/100 WBC (Bld) 76.9 % [place] Segs Absolute 8.8 [place] WBC (Bld) [#/Vol] 11.5 10*3/uL [place] CBC WITH DIFFERENTIALon 04-27 ABS IMMATURE GRANS (IG) 0.12 thou/mm3 High 0.00-0.07 [facility] Comment on above: Performed By: #### C BCWD, BMP, ANION, EGFR1 #### [facility] [employer] [address] [place] [address] ABS NEUTROPHILS 8.8 thou/mm3 High 1.8-7.7 [facility] Comment on above: Performed By: #### C BCWD, BMP, ANION, EGFR1 #### [facility] [address] [place] [address] Basophils (Bld) [#/Vol] 0.0 thou/mm3 Normal 0.0-0.1 [facility] Comment on above: Performed By: #### C BCWD, BMP, ANION, EGFR1 #### [facility] [address] [place] [address] Basophils/100 WBC (Bld) 0.1 % Normal [facility] Comment on above: Performed By: #### C BCWD, BMP, ANION, EGFR1 #### [facility] [address] [place] [address] Eosinophils (Bld) [#/Vol] 0.1 thou/mm3 Normal 0.0-0.4 [facility] Comment on above: Performed By: #### C BCWD, BMP, ANION, EGFR1 #### [facility] [address] [place] [address] Eosinophils/100 WBC (Bld) 1.3 % Normal [facility] Comment on above: Performed By: #### C BCWD, BMP, ANION, EGFR1 #### [facility] [address] [place] [address] Erythrocyte distribution width (RBC) [Ratio] 15.1 % High 11.5-14.5 [facility] Comment on above: Performed By: #### C BCWD, BMP, ANION, EGFR1 #### [address] [address] Hematocrit (Bld) [Volume fraction] 25.0 % Low 37.0-47.0 [facility] Comment on above: Performed By: #### C BCWD, BMP, ANION, EGFR1 #### [address] [address] Hemoglobin (Bld) [Mass/Vol] 7.6 gm/dl Low 12.0-16.0 [facility] Comment on above: Performed By: #### C BCWD, BMP, ANION, EGFR1 #### [address] [address] IMMATURE GRANS (IG) 1.0 % Normal [facility] Comment on above: Performed By: #### C BCWD, BMP, ANION, EGFR1 #### [address] [address] Lymphocytes (Bld) [#/Vol] 1.5 thou/mm3 Normal 1.0-4.8 [facility] Comment on above: Performed By: #### C BCWD, BMP, ANION, EGFR1 #### [address] [address] Lymphocytes/100 WBC (Bld) 13.4 % Normal [facility] Comment on above: Performed By: #### C BCWD, BMP, ANION, EGFR1 #### [address] [address] MCH (RBC) [Entitic mass] 30.0 pg Normal 26.0-33.0 [facility] Comment on above: Performed By: #### C BCWD, BMP, ANION, EGFR1 #### [address] [address] MCHC (RBC) [Mass/Vol] 30.4 gm/dl Low 32.2-35.5 [facility] Comment on above: Performed By: #### C BCWD, BMP, ANION, EGFR1 #### [facility] [address] [place] [address] MCV (RBC) [Entitic vol] 98.8 fL Normal 81.0-99.0 [facility] Comment on above: Performed By: #### C BCWD, BMP, ANION, EGFR1 #### [facility] [address] [place] [address] Monocytes (Bld) [#/Vol] 0.8 thou/mm3 Normal 0.4-1.3 [facility] Comment on above: Performed By: #### C BCWD, BMP, ANION, EGFR1 #### [employer] [address] [place] [address] Monocytes/100 WBC (Bld) 7.3 % Normal [facility] Comment on above: Performed By: #### C BCWD, BMP, ANION, EGFR1 #### [employer] [address] [place] [address] Neutrophils/100 WBC (Bld) 76.9 % Normal [facility] Comment on above: Performed By: #### C BCWD, BMP, ANION, EGFR1 #### [employer] [address] [place] [address] Nucleated RBC/100 WBC (Bld) [Ratio] 0 /100 wbc Normal [facility] Comment on above: Performed By: #### C BCWD, BMP, ANION, EGFR1 #### [employer] [address] [place] [address] Platelet mean volume (Bld) [Entitic vol] 9.5 fL Normal 9.4-12.4 [facility] Comment on above: Performed By: #### C BCWD, BMP, ANION, EGFR1 #### [employer] [address] [place] [address] Platelets (Bld) [#/Vol] 396 thou/mm3 Normal 130-400 [facility] Comment on above: Performed By: #### C BCWD, BMP, ANION, EGFR1 #### [employer] [address] [place] [address] RBC (Bld) [#/Vol] 2.53 mill/mm3 Low 4.20-5.40 [facility] Comment on above: Performed By: #### C BCWD, BMP, ANION, EGFR1 #### [facility] [address] [place] [address] RDW-SD 54.4 fL High 35.0-45.0 [facility] Comment on above: Performed By: #### C BCWD, BMP, ANION, EGFR1 #### [facility] [address] [place] [address] WBC (Bld) [#/Vol] 11.5 thou/mm3 High 4.8-10.8 [facility] Comment on above: Performed By: #### C BCWD, BMP, ANION, EGFR1 #### [facility] [address] [place] [address] GFR, ESTIMATEDon 05-13-2020 GFR/1.73 sq M.predicted MDRD (S/P/Bld) [Vol rate/Area] 53 ml/min/1.73m2 Abnormal [facility] Comment on above: Result Comment: [...] #### C BCWD, BMP, ANION, EGFR1 #### [facility] [address] [place] [address] Glomerular Filtration Rate, Estimatedon 05-13-2020 Est, Glom Filt Rate 53 Abnormal ml/min/1 .73 m2 [facility] [place], [place] Comment on above: Stage Description G [...] Vol. 139 (2) pg 137-147[place] [address] Otheron 05-13-2020 Interpretation and review of laboratory results Abnormal [place] ANION GAPon 05-12-2020 Anion gap [Moles/Vol] 8.0 mmol/L Normal 8.0-16.0 [facility] Comment on above: Result Comment: ANIO N GAP = Sodium -(Chloride + CO2) Performed By: #### B MP, ANION, EGFR1, CBCWD #### [address] [address] Anion Gapon 05-12-2020 Anion gap [Moles/Vol] 8.0 mmol/L 8 - 16 meq/L [place] Comment on above: ANION GAP = Sodium - (Chloride + CO2) Performed at [facility] [place] [address] BASIC METABOL PANELon 2019 Calcium [Mass/Vol] 7.7 mg/dL Low 8.5-10.5 [facility] Comment on above: Performed By: #### B MP, ANION, EGFR1, CBCWD #### [address] [address] Chloride [Moles/Vol] 105 mmol/L Normal 98-111 [facility] Comment on above: Performed By: #### B MP, ANION, EGFR1, CBCWD #### [employer] [facility] [address] [place] [address] CO2 [Moles/Vol] 24 mmol/L Normal 23-33 [facility] Comment on above: Performed By: #### B MP, ANION, EGFR1, CBCWD #### [facility] [address] [place] [address] Creatinine [Mass/Vol] 1.1 mg/dL Normal 0.4-1.2 [facility] Comment on above: Performed By: #### B MP, ANION, EGFR1, CBCWD #### [facility] [address] [place] [address] Glucose [Mass/Vol] 123 mg/dL High 70-108 [facility] Comment on above: Performed By: #### B MP, ANION, EGFR1, CBCWD #### [facility] [address] [place] [address] Potassium [Moles/Vol] 3.9 mmol/L Normal 3.5-5.2 [facility] Comment on above: Performed By: #### B MP, ANION, EGFR1, CBCWD #### [facility] [address] [place] [address] Sodium [Moles/Vol] 137 mmol/L Normal 135-145 [facility] Comment on above: Performed By: #### B MP, ANION, EGFR1, CBCWD #### [facility] [address] [place] [address] Urea nitrogen [Mass/Vol] 20 mg/dL Normal 7-22 [facility] Comment on above: Performed By: #### B MP, ANION, EGFR1, CBCWD #### [facility] [address] [place] [address] Basic Metabolic Panelon 04-27 Calcium [Mass/Vol] 7.7 mg/dL Low 8.5 - 10. 5 mg/dL [place] Comment on above: Performed at [facility] [address] [place] [address] Chloride [Moles/Vol] 105 mmol/L 98 - 11 1 meq/L [facility] [place] CO2 [Moles/Vol] 24 mmol/L 23 - 33 meq/L [place] Creatinine [Mass/Vol] 1.1 mg/dL 0.4 - 1.2 mg/dL [place] Glucose [Mass/Vol] 123 mg/dL High 70 - 108 mg/dL [place] Potassium [Moles/Vol] 3.9 mmol/L 3.5 - 5.2 meq/L [place] Sodium [Moles/Vol] 137 mmol/L 135 - 145 meq/L [place] Urea nitrogen [Mass/Vol] 20 mg/dL 7 - 22 mg/dL [place] Bladder scanon 05-12-2020 Dora Lynn Julissa 05/12/2020 1:12 PM Bladder scan was completed by Sadie Costa at 1245pm. The residual amount of 725ml was resulted to Mirza WESLEY. [place] Floralatanya Nesbitt 05/12/2020 12:25 AM A Bladder scan was performed at 0021 . The patient's last void was at has not voided since she was straight cathed at 15:30. The residual amount was measured to be 656 ML. Report of results was given to Missy WESLEY. [place] CBC Auto Differentialon 04-27 Basophils (Bld) [#/Vol] 0.0 10*3/uL [place] Basophils/100 WBC (Bld) 0.1 % [place] Eosinophils (Bld) [#/Vol] 0.2 10*3/uL [place] Eosinophils/100 WBC (Bld) 2.4 % [place] Erythrocyte distribution width (RBC) [Ratio] 15 % High 11.5 - 14.5 % [place] Hematocrit (Bld) [Volume fraction] 24.8 % Low 37 - 47 % [place] Hemoglobin (Bld) [Mass/Vol] 7.4 g/dL Low [place] Immature Grans (Abs) 0.06 [place], [place] Immature granulocytes (Bld) [#/Vol] 0.6 % [place] Interpretation and review of laboratory results Abnormal [place] Lymphocytes (Bld) [#/Vol] 1.4 10*3/uL [place] Lymphocytes/100 WBC (Bld) 14.9 % [place] MCH (RBC) [Entitic mass] 29.4 pg 26 - 33 pg [place] MCHC (RBC) [Mass/Vol] 29.8 g/dL Low [place] MCV (RBC) [Entitic vol] 98.4 fL 81 - 99 fL [place] Monocytes (Bld) [#/Vol] 0.9 10*3/uL [place] Monocytes/100 WBC (Bld) 8.9 % [place] Nucleated RBC/100 WBC (Bld) [Ratio] 0 % /100 wbc [place] Comment on above: Performed at [facility] [address] [place] [address] Platelet mean volume (Bld) [Entitic vol] 9.6 fL 9.4 - 12.4 fL [place] Platelets (Bld) [#/Vol] 370 10*3/uL [place] RBC (Bld) [#/Vol] 2.52 10*6/uL Low [place] RDW-SD 54 fL High 35 - 45 fL [place] Segmented neutrophils/100 WBC (Bld) 73.1 % [place] Segs Absolute 7.0 [place] WBC (Bld) [#/Vol] 9.6 10*3/uL [place] CBC WITH DIFFERENTIALon 04-27 ABS IMMATURE GRANS (IG) 0.06 thou/mm3 Normal 0.00-0.07 [facility] Comment on above: Performed By: #### B MP, ANION, EGFR1, CBCWD #### [facility] [address] [place] [address] ABS NEUTROPHILS 7.0 thou/mm3 Normal 1.8-7.7 [facility] Comment on above: Performed By: #### B MP, ANION, EGFR1, CBCWD #### [facility] [address] [place] [address] Basophils (Bld) [#/Vol] 0.0 thou/mm3 Normal 0.0-0.1 [facility] Comment on above: Performed By: #### B MP, ANION, EGFR1, CBCWD #### [facility] [employer] [address] [place] [address] Basophils/100 WBC (Bld) 0.1 % Normal [facility] Comment on above: Performed By: #### B MP, ANION, EGFR1, CBCWD #### [facility] [employer] [address] [place] [address] Eosinophils (Bld) [#/Vol] 0.2 thou/mm3 Normal 0.0-0.4 [facility] Comment on above: Performed By: #### B MP, ANION, EGFR1, CBCWD #### [address] [address] Eosinophils/100 WBC (Bld) 2.4 % Normal [facility] Comment on above: Performed By: #### B MP, ANION, EGFR1, CBCWD #### [address] [address] Erythrocyte distribution width (RBC) [Ratio] 15.0 % High 11.5-14.5 [facility] Comment on above: Performed By: #### B MP, ANION, EGFR1, CBCWD #### [address] [address] Hematocrit (Bld) [Volume fraction] 24.8 % Low 37.0-47.0 [facility] Comment on above: Performed By: #### B MP, ANION, EGFR1, CBCWD #### [address] [address] Hemoglobin (Bld) [Mass/Vol] 7.4 gm/dl Low 12.0-16.0 [facility] Comment on above: Performed By: #### B MP, ANION, EGFR1, CBCWD #### [address] [address] IMMATURE GRANS (IG) 0.6 % Normal [facility] Comment on above: Performed By: #### B MP, ANION, EGFR1, CBCWD #### [address] [address] Lymphocytes (Bld) [#/Vol] 1.4 thou/mm3 Normal 1.0-4.8 [facility] Comment on above: Performed By: #### B MP, ANION, EGFR1, CBCWD #### [address] [address] Lymphocytes/100 WBC (Bld) 14.9 % Normal [facility] Comment on above: Performed By: #### B MP, ANION, EGFR1, CBCWD #### [facility] [address] [place] [address] MCH (RBC) [Entitic mass] 29.4 pg Normal 26.0-33.0 [facility] Comment on above: Performed By: #### B MP, ANION, EGFR1, CBCWD #### [facility] [address] [place] [address] MCHC (RBC) [Mass/Vol] 29.8 gm/dl Low 32.2-35.5 [facility] Comment on above: Performed By: #### B MP, ANION, EGFR1, CBCWD #### [address] [address] MCV (RBC) [Entitic vol] 98.4 fL Normal 81.0-99.0 [facility] Comment on above: Performed By: #### B MP, ANION, EGFR1, CBCWD #### [address] [address] Monocytes (Bld) [#/Vol] 0.9 thou/mm3 Normal 0.4-1.3 [facility] Comment on above: Performed By: #### B MP, ANION, EGFR1, CBCWD #### [address] [address] Monocytes/100 WBC (Bld) 8.9 % Normal [facility] Comment on above: Performed By: #### B MP, ANION, EGFR1, CBCWD #### [address] [address] Neutrophils/100 WBC (Bld) 73.1 % Normal [facility] Comment on above: Performed By: #### B MP, ANION, EGFR1, CBCWD #### [facility] [address] [place] [address] Nucleated RBC/100 WBC (Bld) [Ratio] 0 /100 wbc Normal [facility] Comment on above: Performed By: #### B MP, ANION, EGFR1, CBCWD #### [facility] [address] [place] [address] Platelet mean volume (Bld) [Entitic vol] 9.6 fL Normal 9.4-12.4 [facility] Comment on above: Performed By: #### B MP, ANION, EGFR1, CBCWD #### [address] [address] Platelets (Bld) [#/Vol] 370 thou/mm3 Normal 130-400 [facility] Comment on above: Performed By: #### B MP, ANION, EGFR1, CBCWD #### [address] [address] RBC (Bld) [#/Vol] 2.52 mill/mm3 Low 4.20-5.40 [facility] Comment on above: Performed By: #### B MP, ANION, EGFR1, CBCWD #### [address] [address] RDW-SD 54.0 fL High 35.0-45.0 [facility] Comment on above: Performed By: #### B MP, ANION, EGFR1, CBCWD #### [address] [address] WBC (Bld) [#/Vol] 9.6 thou/mm3 Normal 4.8-10.8 [facility] Comment on above: Performed By: #### B MP, ANION, EGFR1, CBCWD #### [address] [address] GFR, ESTIMATEDon 05-12-2020 GFR/1.73 sq M.predicted MDRD (S/P/Bld) [Vol rate/Area] 47 ml/min/1.73m2 Abnormal [facility] Comment on above: Result Comment: Aris alford [...] B MP, ANION, EGFR1, CBCWD #### [address] [address] Glomerular Filtration Rate, Estimatedon 05-12-2020 Est, Glom Filt Rate 47 Abnormal ml/min/1 .73 m2 [place] Comment on above: Stage Description GF [...] Vol. 139 (2) pg 137-147. Performed at [facility] [place] [address] Otheron 05-12-2020 Interpretation and review of laboratory results Abnormal [place] ANION GAPon 05-11-2020 Anion gap [Moles/Vol] 11.0 mmol/L Normal 8.0-16.0 [facility] Comment on above: Result Comment: ANIO N GAP = Sodium -(Chloride + CO2) Performed By: #### C GLENN, BMP, ANION, EGFR1 #### [address] [address] Anion Gapon 05-11-2020 Anion gap [Moles/Vol] 11.0 mmol/L 8 - 16 meq/L [place] Comment on above: ANION GAP = Sodium - (Chloride + CO2) Performed at [facility] [address] [place] [address] BASIC METABOL PANELon 2019 Calcium [Mass/Vol] 8.1 mg/dL Low 8.5-10.5 [facility] Comment on above: Performed By: #### C BCALEKS, BMP, ANION, EGFR1 #### [facility] [address] [place] [address] Chloride [Moles/Vol] 107 mmol/L Normal 98-111 [facility] Comment on above: Performed By: #### C BCWD, BMP, ANION, EGFR1 #### [facility] [address] [place] [address] CO2 [Moles/Vol] 24 mmol/L Normal 23-33 [facility] Comment on above: Performed By: #### C BCWD, BMP, ANION, EGFR1 #### [facility] [address] [place] [address] Creatinine [Mass/Vol] 1.1 mg/dL Normal 0.4-1.2 [facility] Comment on above: Performed By: #### C BCWD, BMP, ANION, EGFR1 #### [facility] [address] [place] [address] Glucose [Mass/Vol] 131 mg/dL High 70-108 [facility] Comment on above: Performed By: #### C BCWD, BMP, ANION, EGFR1 #### [facility] [employer] [address] [place] [address] Potassium [Moles/Vol] 4.3 mmol/L Normal 3.5-5.2 [facility] Comment on above: Performed By: #### C BCWD, BMP, ANION, EGFR1 #### [employer] [address] [place] [address] Sodium [Moles/Vol] 142 mmol/L Normal 135-145 [facility] Comment on above: Performed By: #### C BCWD, BMP, ANION, EGFR1 #### [facility] [address] [place] [address] Urea nitrogen [Mass/Vol] 23 mg/dL High 7-22 [facility] Comment on above: Performed By: #### C BCWD, BMP, ANION, EGFR1 #### [facility] [address] [place] [address] Basic Metabolic Panelon 04-27 Calcium [Mass/Vol] 8.1 mg/dL Low 8.5 - 10. 5 mg/dL [place] Comment on above: Performed at [facility] [address] [place] [address] Chloride [Moles/Vol] 107 mmol/L 98 - 11 1 meq/L [place] CO2 [Moles/Vol] 24 mmol/L 23 - 33 meq/L [place] Creatinine [Mass/Vol] 1.1 mg/dL 0.4 - 1.2 mg/dL [place] Glucose [Mass/Vol] 131 mg/dL High 70 - 108 mg/dL [place] Potassium [Moles/Vol] 4.3 mmol/L 3.5 - 5.2 meq/L [place] Sodium [Moles/Vol] 142 mmol/L 135 - 145 meq/L [place] Urea nitrogen [Mass/Vol] 23 mg/dL High 7 - 22 mg/dL [place] Bladder scanon 05-11-2020 Dora Costa 05/11/2020 3:29 PM Bladder scan was completed by Sadie Costa at 1505. The residual amount of 770ml was resulted to Franca WESLEY. [place] CBC Auto Differentialon 04-27 Basophils (Bld) [#/Vol] 0.0 10*3/uL [place] Basophils/100 WBC (Bld) 0.2 % [place] Eosinophils (Bld) [#/Vol] 0.1 10*3/uL [place] Eosinophils/100 WBC (Bld) 0.7 % [place] Erythrocyte distribution width (RBC) [Ratio] 15.5 % High 11.5 - 14.5 % [place] Hematocrit (Bld) [Volume fraction] 30.3 % Low 37 - 47 % [place] Hemoglobin (Bld) [Mass/Vol] 8.9 g/dL Low [place] Immature Grans (Abs) 0.05 [place], [place] Immature granulocytes (Bld) [#/Vol] 0.5 % [place] Interpretation and review of laboratory results Abnormal [place] Lymphocytes (Bld) [#/Vol] 1.4 10*3/uL [place] Lymphocytes/100 WBC (Bld) 14.7 % [place] MCH (RBC) [Entitic mass] 29.5 pg 26 - 33 pg [place] MCHC (RBC) [Mass/Vol] 29.4 g/dL Low [place] MCV (RBC) [Entitic vol] 100.3 fL High 81 - 99 fL [place] Monocytes (Bld) [#/Vol] 0.9 10*3/uL [place] Monocytes/100 WBC (Bld) 9.6 % [place] Nucleated RBC/100 WBC (Bld) [Ratio] 0 % /100 wbc [place] Comment on above: Performed at [facility] [address] [place] [address] Platelet mean volume (Bld) [Entitic vol] 9.5 fL 9.4 - 12.4 fL [place] Platelets (Bld) [#/Vol] 445 10*3/uL [place] RBC (Bld) [#/Vol] 3.02 10*6/uL [place] RDW-SD 57.2 fL High 35 - 45 fL [place] Segmented neutrophils/100 WBC (Bld) 74.3 % [place] Segs Absolute 7.2 [place] WBC (Bld) [#/Vol] 9.7 10*3/uL [place] CBC WITH DIFFERENTIALon 04-27 ABS IMMATURE GRANS (IG) 0.05 thou/mm3 Normal 0.00-0.07 [facility] Comment on above: Performed By: #### C BCWD, BMP, ANION, EGFR1 #### [facility] [address] [place] [address] ABS NEUTROPHILS 7.2 thou/mm3 Normal 1.8-7.7 [facility] Comment on above: Performed By: #### C BCWD, BMP, ANION, EGFR1 #### [facility] [address] [place] [address] Basophils (Bld) [#/Vol] 0.0 thou/mm3 Normal 0.0-0.1 [facility] Comment on above: Performed By: #### C BCWD, BMP, ANION, EGFR1 #### [facility] [address] [place] [address] Basophils/100 WBC (Bld) 0.2 % Normal [facility] Comment on above: Performed By: #### C BCWD, BMP, ANION, EGFR1 #### [address] [address] Eosinophils (Bld) [#/Vol] 0.1 thou/mm3 Normal 0.0-0.4 [facility] Comment on above: Performed By: #### C BCWD, BMP, ANION, EGFR1 #### [address] [address] Eosinophils/100 WBC (Bld) 0.7 % Normal [facility] Comment on above: Performed By: #### C BCWD, BMP, ANION, EGFR1 #### [address] [address] Erythrocyte distribution width (RBC) [Ratio] 15.5 % High 11.5-14.5 [facility] Comment on above: Performed By: #### C BCWD, BMP, ANION, EGFR1 #### [address] [address] Hematocrit (Bld) [Volume fraction] 30.3 % Low 37.0-47.0 [facility] Comment on above: Performed By: #### C BCWD, BMP, ANION, EGFR1 #### [address] [address] Hemoglobin (Bld) [Mass/Vol] 8.9 gm/dl Low 12.0-16.0 [facility] Comment on above: Performed By: #### C BCWD, BMP, ANION, EGFR1 #### [address] [address] IMMATURE GRANS (IG) 0.5 % Normal [facility] Comment on above: Performed By: #### C BCWD, BMP, ANION, EGFR1 #### [address] [address] Lymphocytes (Bld) [#/Vol] 1.4 thou/mm3 Normal 1.0-4.8 [facility] Comment on above: Performed By: #### C BCWD, BMP, ANION, EGFR1 #### [address] [address] Lymphocytes/100 WBC (Bld) 14.7 % Normal [facility] Comment on above: Performed By: #### C BCWD, BMP, ANION, EGFR1 #### [facility] [address] [place] [address] MCH (RBC) [Entitic mass] 29.5 pg Normal 26.0-33.0 [facility] Comment on above: Performed By: #### C BCWD, BMP, ANION, EGFR1 #### [address] [address] MCHC (RBC) [Mass/Vol] 29.4 gm/dl Low 32.2-35.5 [facility] Comment on above: Performed By: #### C BCWD, BMP, ANION, EGFR1 #### [address] [address] MCV (RBC) [Entitic vol] 100.3 fL High 81.0-99.0 [facility] Comment on above: Performed By: #### C BCWD, BMP, ANION, EGFR1 #### [address] [address] Monocytes (Bld) [#/Vol] 0.9 thou/mm3 Normal 0.4-1.3 [facility] Comment on above: Performed By: #### C BCWD, BMP, ANION, EGFR1 #### [address] [address] Monocytes/100 WBC (Bld) 9.6 % Normal [facility] Comment on above: Performed By: #### C BCWD, BMP, ANION, EGFR1 #### [address] [address] Neutrophils/100 WBC (Bld) 74.3 % Normal [facility] Comment on above: Performed By: #### C BCWD, BMP, ANION, EGFR1 #### [address] [address] Nucleated RBC/100 WBC (Bld) [Ratio] 0 /100 wbc Normal [facility] Comment on above: Performed By: #### C BCWD, BMP, ANION, EGFR1 #### [place] [address] Platelet mean volume (Bld) [Entitic vol] 9.5 fL Normal 9.4-12.4 [facility] Comment on above: Performed By: #### C BCWD, BMP, ANION, EGFR1 #### [place] [address] Platelets (Bld) [#/Vol] 445 thou/mm3 High 130-400 [facility] Comment on above: Performed By: #### C BCWD, BMP, ANION, EGFR1 #### [place] [address] RBC (Bld) [#/Vol] 3.02 mill/mm3 Low 4.20-5.40 [facility] Comment on above: Performed By: #### C BCWD, BMP, ANION, EGFR1 #### [place] [address] RDW-SD 57.2 fL High 35.0-45.0 [facility] Comment on above: Performed By: #### C BCWD, BMP, ANION, EGFR1 #### [place] [address] WBC (Bld) [#/Vol] 9.7 thou/mm3 Normal 4.8-10.8 [facility] Comment on above: Performed By: #### C BCWD, BMP, ANION, EGFR1 #### [place] [address] GFR, ESTIMATEDon 05-11-2020 GFR/1.73 sq M.predicted MDRD (S/P/Bld) [Vol rate/Area] 47 ml/min/1.73m2 Abnormal [facility] Comment on above: Result Comment: Aris alford [...] #### C BCWD, BMP, ANION, EGFR1 #### [facility] [address] [address] Glomerular Filtration Rate, Estimatedon 05-11-2020 Est, Glom Filt Rate 47 Abnormal ml/min/1 .73 m2 [place] Comment on above: Stage Description G [...] Vol. 139 (2) pg 137-147. Performed at [address] [address] Otheron 05-11-2020 Interpretation and review of laboratory results Abnormal [place] AER/ANAEROBIC CULTUREon 04-27 AER/ANAEROBIC CULTURE MICROBIOLOGY REPOR T [facility], [address] [place] [address], [id number] PATIENT: JESÚS NOLAN LOCATION: [facility] -A : 1935 AGE: 84 SEX: F ADM: 05/10/20 Att. Physician: CHELE LAGOS Order Id: [id number] Req. Physician: CHELE LAGOS Source: tissue Site: [...] 8 h 5-7 >=100 Trimethoprim/Vargas <=20 S [id number] q 12h 1-2TMP/[id number]/ 97SM IV 160mgTMP/800mgSMX q 8 h9TMP/105 SMX [...] IV 1.7mg/kg q 8 h 5-7 >=100 Trimethoprim/Vagras <=20 S [id number]/800mgSMX q 12h 1-2TMP/[id number]/ 97SM IV 160mgTMP/800mgSMX q 8 h9TMP/105 SMX [...] liver disease consult PDR or pharmacist. Normal [facility] COVID-19on 05-10-2020 COVID-19 BY RT-PCR NOT DETECTED Normal NOT DETECT Ana [facility] Comment on above: Result Comment: [...] #### C BCWD, BMP, ANION, EGFR1 #### [facility] [address] [place] [address] SARS-CoV-2, PCR NOT DETECTED NOT DETECT [place] Comment on above: This test has [...] or revoked sooner. METHODOLOGY: RT-PCR Performed at [facility] [address] [place] [address] TYPE AND SCREENon 05-10-2020 ABO A [place] Rh Factor Positive [place] TYPE AND SCREEN CAPTUREon ABO CAPTURE A Normal [facility] Comment on above: Performed By: #### C BCWD, BMP, ANION, EGFR1 #### [facility] [address] [place] [address] INDIRECT AUTUMN CAPTURE Negative Normal [facility] Comment on above: Performed By: #### C BCWD, BMP, ANION, EGFR1 #### [facility] [address] [place] [address] RH CAPTURE (2 D CLONES) Positive Normal [facility] Comment on above: Performed By: #### C BCWD, BMP, ANION, EGFR1 #### [facility] [address] [place] [address] XR HIP LEFT (2-3 VIEWS)on XR HIP [...] Benson Edwards MD 05/10/20 Final result Normal [facility] [place], [facility] Incoming Radiant Results From [facility] - 05/10/2020 3:32 PM EDT PROCEDURE: XR [...] Dr Benson Edwards on 05/10/2020 3:30 PM [facility], [place] PROCEDURE: XR HIP LE FT (2-3 VIEWS) [...] of the arthroplasty likely related to surgery. [place] Status post left tot al hip arthroplasty. This report has been created using voice recognition software. It may contain minor errors which are inherent in voice recognition technology. Final report electronically signed by Dr Benson Edwards on 05/10/2020 3:30 PM [place] Basic Metabolic Panelon 04-27 Anion gap [Moles/Vol] 10 mmol/L 9 - 17 mmol/L [place] Bun/Cre Ratio 20 [place] Calcium [Mass/Vol] 8.9 mg/dL 8.6 - 10. 4 mg/dL [place] Chloride [Moles/Vol] 105 mmol/L 98 - 10 7 mmol/L [place] CO2 [Moles/Vol] 27 mmol/L 20 - 31 mmol/L [place] Creatinine [Mass/Vol] 1.12 mg/dL High 0.5 - 0.9 mg/dL [place] GFR 56 mL/min Low >60 [place] GFR Non- 47 mL/min Low >60 [place] Glucose [Mass/Vol] 110 mg/dL High 70 - 99 mg/dL [place] Interpretation and review of laboratory results Abnormal [place] Potassium [Moles/Vol] 3.8 mmol/L 3.7 - 5.3 mmol/L [place] Sodium [Moles/Vol] 142 mmol/L 135 - 144 mmol/L [place] Urea nitrogen [Mass/Vol] 22 mg/dL 8 - 23 mg/dL [place] CBCon 05-09-2020 Erythrocyte distribution width (RBC) [Ratio] 15.5 % High 11.8 - 14.4 % [place] Hematocrit (Bld) [Volume fraction] 34.3 % Low 36.3 - 47.1 % [place] Hemoglobin (Bld) [Mass/Vol] 10.2 g/dL Low 11.9 - 15.1 g/dL [place] Interpretation and review of laboratory results Abnormal [place] MCH (RBC) [Entitic mass] 29.4 pg 25. 2 - 33.5 pg [place] MCHC (RBC) [Mass/Vol] 29.7 g/dL 28.4 - 34.8 g/dL [place] MCV (RBC) [Entitic vol] 98.8 fL 82.6 - 102.9 fL [place] Platelet mean volume (Bld) [Entitic vol] 9.4 fL 8.1 - 13.5 fL [place] Platelets (Bld) [#/Vol] 512 10*3/uL High [place] RBC (Bld) [#/Vol] 3.47 10*6/uL Low 3.95 - 5.1 1 m/uL [place] WBC (Bld) [#/Vol] 0.0 10*3/uL 0.0 per 10 0 WBC [place] WBC (Bld) [#/Vol] 8.6 10*3/uL [place] Metabolic Panelon 05-09-2020 GFR/1.73 sq M predicted among non-blacks MDRD (S/P/Bld) [Vol rate/Area] [place] Comment on above: Stage 1: Some [...] body mass. Additional eGFR calculator available at: http://www.[employer].Appconomy/multiple_crcl_2012.htm Microscopic Urinalysison Amorphous, UA NOT REPORTED None [place] Bacteria, UA 2+ Abnormal None [place] Casts UA NOT REPORTED /LPF [place] Crystals, UA NOT REPORTED None /HPF [place] Epithelial Cells UA 0 TO 2 [place] Interpretation and review of laboratory results Abnormal [place] Mucus, UA NOT REPORTED None [place] Other Observations UA NOT REPORTED NOT REQ. [place] RBC (U) [#/Vol] 5 TO 10 [place] Renal Epithelial, UA 0 TO 2 0 /HPF [place], [place] Trichomonas, UA NOT REPORTED None [place] WBC, UA 50 TO 100 [place] Yeast, UA NOT REPORTED None [place] - [place] Urinalysison 05-08-2020 Bilirubin Urine Negative NEGATIVE [place] Color, UA YELLOW YELLOW [place] Glucose, Ur Negative NEGATIVE [place] Interpretation and review of laboratory results Abnormal [place] Ketones Ql (U) Negative NEGATIVE [place] Leukocyte esterase Test strip Ql (U) MODERATE Abnormal NEGATIVE [place] Nitrite, Urine Negative NEGATIVE [place] pH, UA 6.5 [place] Protein (U) [Mass/Vol] TRACE Abnormal NEGATIVE [place], [place] Specific [place], UA 1.020 [place], [place] Turbidity UA SLIGHTLY CLOUDY Abnormal CLEAR [place] Urinalysis Comments NOT REPORTED [place] Urine Hgb 2+ Abnormal NEGATIVE [place] Urobilinogen, Urine Normal Normal [place] Basic Metabolic Panelon Anion gap [Moles/Vol] 17 mmol/L 9 - 17 mmol/L [place] Bun/Cre Ratio 20 [place] Calcium [Mass/Vol] 9.2 mg/dL 8.6 - 10. 4 mg/dL [place] Chloride [Moles/Vol] 97 mmol/L Low 98 - 10 7 mmol/L [place] CO2 [Moles/Vol] 23 mmol/L 20 - 31 mmol/L [place] Creatinine [Mass/Vol] 1.29 mg/dL High 0.5 - 0.9 mg/dL [place] GFR 48 mL/min Low >60 [place], [place] GFR Non- 40 mL/min Low >60 [place] Glucose [Mass/Vol] 209 mg/dL High 70 - 99 mg/dL [place] Interpretation and review of laboratory results Abnormal [place] Potassium [Moles/Vol] 3.7 mmol/L 3.7 - 5.3 mmol/L [place] Sodium [Moles/Vol] 137 mmol/L 135 - 144 mmol/L [place] Urea nitrogen [Mass/Vol] 26 mg/dL High 8 - 23 mg/dL [place] CBC Auto Differentialon Basophils (Bld) [#/Vol] 10*3/uL [place] Basophils/100 WBC (Bld) 0 % 0 - 2 % [place] Differential Type NOT REPORTED [place] Eosinophils (Bld) [#/Vol] 0.17 10*3/uL [place] Eosinophils/100 WBC (Bld) 2 % 1 - 4 % [place] Erythrocyte distribution width (RBC) [Ratio] 15.3 % High 11.8 - 14.4 % [place] Hematocrit (Bld) [Volume fraction] 36.5 % 36.3 - 47.1 % [place] Hemoglobin (Bld) [Mass/Vol] 11.2 g/dL Low 11.9 - 15.1 g/dL [place] Immature granulocytes (Bld) [#/Vol] 1 % High 0 [place] Immature granulocytes (Bld) [#/Vol] 0.05 10*3/uL [place] Interpretation and review of laboratory results Abnormal [place] Lymphocytes (Bld) [#/Vol] 2.30 10*3/uL [place] Lymphocytes/100 WBC (Bld) 21 % Low 24 - 43 % [place] MCH (RBC) [Entitic mass] 30.3 pg 25. 2 - 33.5 pg [place] MCHC (RBC) [Mass/Vol] 30.7 g/dL 28.4 - 34.8 g/dL [place] MCV (RBC) [Entitic vol] 98.6 fL 82.6 - 102.9 fL [place] Monocytes (Bld) [#/Vol] 1.01 10*3/uL [place] Monocytes/100 WBC (Bld) 9 % 3 - 12 % [place] Platelet mean volume (Bld) [Entitic vol] 9.7 fL 8.1 - 13.5 fL [place] Platelets (Bld) [#/Vol] NOT REPORTED [place] Platelets (Bld) [#/Vol] 481 10*3/uL High [place] RBC (Bld) [#/Vol] 3.70 10*6/uL Low 3.95 - 5.1 1 m/uL [place] RBC morphology finding Nom (Bld) NOT REPORTED [place] Segmented neutrophils/100 WBC (Bld) 67 % High 36 - 65 % [place] Segs Absolute 7.38 [place] WBC (Bld) [#/Vol] 10.9 10*3/uL [place] WBC (Bld) [#/Vol] 0.0 10*3/uL 0.0 per 10 0 WBC [place] WBC Morphology NOT REPORTED [place] Metabolic Panelon 05-03-2020 GFR/1.73 sq M predicted among non-blacks MDRD (S/P/Bld) [Vol rate/Area] [place] Comment on above: Stage 1: Some [...] body mass. Additional eGFR calculator available at: http://www.[employer]ind/multiple_crcl_2012.htm CBC Auto Differentialon 03-27 Basophils (Bld) [#/Vol] 0.00 10*3/uL [place] Basophils/100 WBC (Bld) 0 % 0 - 2 % [place] Differential Type NOT REPORTED [place] Eosinophils (Bld) [#/Vol] 0.00 10*3/uL [place] Eosinophils/100 WBC (Bld) 0 % Low 1 - 4 % [place] Erythrocyte distribution width (RBC) [Ratio] 15.9 % High 11.8 - 14.4 % [place] Hematocrit (Bld) [Volume fraction] 36.3 % 36.3 - 47.1 % [place] Hemoglobin (Bld) [Mass/Vol] 11.0 g/dL Low 11.9 - 15.1 g/dL [place] Immature granulocytes (Bld) [#/Vol] 4 % High 0 [place] Immature granulocytes (Bld) [#/Vol] 0.51 10*3/uL [place] Interpretation and review of laboratory results Abnormal [place] Lymphocytes (Bld) [#/Vol] 1.40 10*3/uL [place] Lymphocytes/100 WBC (Bld) 11 % Low 24 - 43 % [place] MCH (RBC) [Entitic mass] 30.1 pg 25. 2 - 33.5 pg [place] MCHC (RBC) [Mass/Vol] 30.3 g/dL 28.4 - 34.8 g/dL [place] MCV (RBC) [Entitic vol] 99.5 fL 82.6 - 102.9 fL [place] Monocytes (Bld) [#/Vol] 0.76 10*3/uL [place] Monocytes/100 WBC (Bld) 6 % 3 - 12 % [place] Morphology [place] (Bld) [Interp] Normal [place] Platelet mean volume (Bld) [Entitic vol] 10.0 fL 8.1 - 13.5 fL [place] Platelets (Bld) [#/Vol] NOT REPORTED [place] Platelets (Bld) [#/Vol] 613 10*3/uL High [place] RBC (Bld) [#/Vol] 3.65 10*6/uL Low 3.95 - 5.1 1 m/uL [place] RBC morphology finding Nom (Bld) NOT REPORTED [place] Segmented neutrophils/100 WBC (Bld) 79 % High 36 - 65 % [place] Segs Absolute 10.03 High [place] WBC (Bld) [#/Vol] 0.0 10*3/uL 0.0 per 10 0 WBC [place] WBC (Bld) [#/Vol] 12.7 10*3/uL High [place] WBC Morphology NOT REPORTED [place] Comprehensive Metabolic Pane [facility] 04-10-2020 Albumin [Mass/Vol] 2.4 g/dL Low 3.5 - 5.2 g/dL [place] Albumin/Globulin [Mass ratio] 0.8 {ratio} Low [place] ALP [Catalytic activity/Vol] 136 U/L High 35 - 104 U/L [place] ALT [Catalytic activity/Vol] 29 U/L 5 - 33 U/L [place] Anion gap [Moles/Vol] 11 mmol/L 9 - 17 mmol/L [place] AST [Catalytic activity/Vol] 20 U/L <32 [place] Bilirubin Ql (U) 0.20 mg/dL Low 0.3 - 1.2 mg/dL [place] Bun/Cre Ratio 20 [place] Calcium [Mass/Vol] 8.2 mg/dL Low 8.6 - 10. 4 mg/dL [place] Chloride [Moles/Vol] 100 mmol/L 98 - 10 7 mmol/L [place] CO2 [Moles/Vol] 25 mmol/L 20 - 31 mmol/L [place] Creatinine [Mass/Vol] 1.11 mg/dL High 0.5 - 0.9 mg/dL [place] GFR 57 mL/min Low >60 [place] GFR Non- 47 mL/min Low >60 [place] Glucose [Mass/Vol] 135 mg/dL High 70 - 99 mg/dL [place] Interpretation and review of laboratory results Abnormal [place] Potassium [Moles/Vol] 3.6 mmol/L Low 3.7 - 5.3 mmol/L [place] Protein [Mass/Vol] 5.6 g/dL Low 6.4 - 8.3 g/dL [place] Sodium [Moles/Vol] 136 mmol/L 135 - 144 mmol/L [place] Urea nitrogen [Mass/Vol] 22 mg/dL 8 - 23 mg/dL [place] Metabolic Panelon 04-10-2020 GFR/1.73 sq M predicted among non-blacks MDRD (S/P/Bld) [Vol rate/Area] [place], [place] Comment on above: Stage 1: Some [...] body mass. Additional eGFR calculator available at: http://[email or web address]/multiple_crcl_2012.htm Urinalysis with Microscopico n 04-10-2020 Amorphous, UA NOT REPORTED None [place] Bacteria, UA TRACE Abnormal None [place] Bilirubin Urine Negative NEGATIVE [place] Casts UA NOT REPORTED /LPF [place] Color, UA YELLOW YELLOW [place] Crystals, UA NOT REPORTED None /HPF [place] Epithelial Cells UA 10 TO 20 [place] Glucose, Ur Negative NEGATIVE [place] Interpretation and review of laboratory results Abnormal [place] Ketones Ql (U) Negative NEGATIVE [place] Leukocyte esterase Test strip Ql (U) Negative NEGATIVE [place] Mucus, UA NOT REPORTED None [place] Nitrite, Urine Negative NEGATIVE [place] Other Observations UA NOT REPORTED NOT REQ. [place] pH, UA 7.0 [place] Protein (U) [Mass/Vol] Negative NEGATIVE [place] RBC (U) [#/Vol] 0 TO 2 [place] Renal Epithelial, UA NOT REPORTED 0 /HPF [place] Specific [place], UA 1.015 [place], [place] Trichomonas, UA NOT REPORTED None [place] Turbidity UA CLEAR CLEAR [place] Urinalysis Comments NOT REPORTED [place] Urine Hgb Negative NEGATIVE [place] Urobilinogen, Urine Normal Normal [place] WBC, UA 0 TO 2 [place] Yeast, UA NOT REPORTED None [place] CBC auto differentialon 03-27 Basophils (Bld) [#/Vol] 0.04 10*3/uL [place] Basophils/100 WBC (Bld) 0 % 0 - 2 % [place] Differential Type NOT REPORTED [place] Eosinophils (Bld) [#/Vol] 0.24 10*3/uL [place] Eosinophils/100 WBC (Bld) 2 % 1 - 4 % [place] Erythrocyte distribution width (RBC) [Ratio] 15.6 % High 11.8 - 14.4 % [place] Hematocrit (Bld) [Volume fraction] 29.2 % Low 36.3 - 47.1 % [place] Hemoglobin (Bld) [Mass/Vol] 8.8 g/dL Low 11.9 - 15.1 g/dL [place] Immature granulocytes (Bld) [#/Vol] 0.49 10*3/uL [place] Immature granulocytes (Bld) [#/Vol] 3 % High 0 [place] Interpretation and review of laboratory results Abnormal [place] Lymphocytes (Bld) [#/Vol] 1.99 10*3/uL [place] Lymphocytes/100 WBC (Bld) 13 % Low 24 - 43 % [place] MCH (RBC) [Entitic mass] 30.1 pg 25. 2 - 33.5 pg [place] MCHC (RBC) [Mass/Vol] 30.1 g/dL 28.4 - 34.8 g/dL [place] MCV (RBC) [Entitic vol] 100.0 fL 82.6 - 102.9 fL [place] Monocytes (Bld) [#/Vol] 1.02 10*3/uL [place] Monocytes/100 WBC (Bld) 7 % 3 - 12 % [place] Platelet mean volume (Bld) [Entitic vol] 10.7 fL 8.1 - 13.5 fL [place] Platelets (Bld) [#/Vol] NOT REPORTED [place] Platelets (Bld) [#/Vol] 444 10*3/uL [place] RBC (Bld) [#/Vol] 2.92 10*6/uL Low 3.95 - 5.1 1 m/uL [place] RBC morphology finding Nom (Bld) NOT REPORTED [place] Segmented neutrophils/100 WBC (Bld) 75 % High 36 - 65 % [place] Segs Absolute 11.50 High [place] WBC (Bld) [#/Vol] 0.0 10*3/uL 0.0 per 10 0 WBC [place] WBC (Bld) [#/Vol] 15.3 10*3/uL [place] WBC Morphology NOT REPORTED [place] Comprehensive metabolic pane riddhi 04-06-2020 Albumin [Mass/Vol] 2.1 g/dL Low 3.5 - 5.2 g/dL [place] Albumin/Globulin [Mass ratio] 0.7 {ratio} Low [place] ALP [Catalytic activity/Vol] 139 U/L High 35 - 104 U/L [place] ALT [Catalytic activity/Vol] 67 U/L High 5 - 33 U/L [place] Anion gap [Moles/Vol] 11 mmol/L 9 - 17 mmol/L [place] AST [Catalytic activity/Vol] 61 U/L High <32 [place] Bilirubin Ql (U) 0.34 mg/dL 0.3 - 1.2 mg/dL [place] Bun/Cre Ratio 20 [place] Calcium [Mass/Vol] 8.2 mg/dL Low 8.6 - 10. 4 mg/dL [place] Chloride [Moles/Vol] 101 mmol/L 98 - 10 7 mmol/L [place] CO2 [Moles/Vol] 25 mmol/L 20 - 31 mmol/L [place] Creatinine [Mass/Vol] 1.12 mg/dL High 0.5 - 0.9 mg/dL [place] GFR 56 mL/min Low >60 [place] GFR Non- 47 mL/min Low >60 [place] Glucose [Mass/Vol] 149 mg/dL High 70 - 99 mg/dL [place] Interpretation and review of laboratory results Abnormal [place] Potassium [Moles/Vol] 3.5 mmol/L Low 3.7 - 5.3 mmol/L [place] Protein [Mass/Vol] 5.3 g/dL Low 6.4 - 8.3 g/dL [place] Sodium [Moles/Vol] 137 mmol/L 135 - 144 mmol/L [place] Urea nitrogen [Mass/Vol] 22 mg/dL 8 - 23 mg/dL [place] Metabolic Panelon 04-06-2020 GFR/1.73 sq M predicted among non-blacks MDRD (S/P/Bld) [Vol rate/Area] [place] Comment on above: Stage 1: Some [...] body mass. Additional eGFR calculator available at: http://www.[employer]/multiple_crcl_2012.htm CBC auto differentialon 03-27 Basophils (Bld) [#/Vol] 10*3/uL [place] Basophils/100 WBC (Bld) 0 % 0 - 2 % [place] Differential Type NOT REPORTED [place] Eosinophils (Bld) [#/Vol] 0.05 10*3/uL [place] Eosinophils/100 WBC (Bld) 0 % Low 1 - 4 % [place] Erythrocyte distribution width (RBC) [Ratio] 15.3 % High 11.8 - 14.4 % [place] Hematocrit (Bld) [Volume fraction] 32.0 % Low 36.3 - 47.1 % [place] Hemoglobin (Bld) [Mass/Vol] 10.0 g/dL Low 11.9 - 15.1 g/dL [place] Immature granulocytes (Bld) [#/Vol] 2 % High 0 [place] Immature granulocytes (Bld) [#/Vol] 0.40 10*3/uL [place] Interpretation and review of laboratory results Abnormal [place] Lymphocytes (Bld) [#/Vol] 1.67 10*3/uL [place] Lymphocytes/100 WBC (Bld) 9 % Low 24 - 43 % [place] MCH (RBC) [Entitic mass] 30.8 pg 25. 2 - 33.5 pg [place] MCHC (RBC) [Mass/Vol] 31.3 g/dL 28.4 - 34.8 g/dL [place] MCV (RBC) [Entitic vol] 98.5 fL 82.6 - 102.9 fL [place] Monocytes (Bld) [#/Vol] 1.38 10*3/uL [place] Monocytes/100 WBC (Bld) 8 % 3 - 12 % [place] Platelet mean volume (Bld) [Entitic vol] 10.7 fL 8.1 - 13.5 fL [place] Platelets (Bld) [#/Vol] 497 10*3/uL [place] Platelets (Bld) [#/Vol] NOT REPORTED [place] RBC (Bld) [#/Vol] 3.25 10*6/uL Low 3.95 - 5.1 1 m/uL [place] RBC morphology finding Nom (Bld) NOT REPORTED [place] Segmented neutrophils/100 WBC (Bld) 81 % High 36 - 65 % [place] Segs Absolute 14.36 High [place] WBC (Bld) [#/Vol] 17.9 10*3/uL [place] WBC (Bld) [#/Vol] 0.0 10*3/uL 0.0 per 10 0 WBC [place] WBC Morphology NOT REPORTED [place] COVID-19on 04-05-2020 SARS-CoV-2 [place] SARS-CoV-2, PCR [place] SARS-CoV-2, Rapid Not Detected Not Detected [place] Comment on above: Rapid NAAT: The [...] management decisions. Fact sheet for Healthcare Providers: https://www.fda.gov/media/765847/download Fact sheet for Patients: https://www.fda.gov/media/805440/download Methodology: Isothermal Nucleic Acid Amplification Source .NASOPHARYNGEAL SWAB [place] Comprehensive metabolic pane riddhi 04-05-2020 Albumin [Mass/Vol] 2.5 g/dL Low 3.5 - 5.2 g/dL [place] Albumin/Globulin [Mass ratio] 0.7 {ratio} Low [place] ALP [Catalytic activity/Vol] 137 U/L High 35 - 104 U/L [place] ALT [Catalytic activity/Vol] 76 U/L High 5 - 33 U/L [place] Anion gap [Moles/Vol] 16 mmol/L 9 - 17 mmol/L [place] AST [Catalytic activity/Vol] 73 U/L High <32 [place] Bilirubin Ql (U) 0.41 mg/dL 0.3 - 1.2 mg/dL [place] Bun/Cre Ratio 21 High [place] Calcium [Mass/Vol] 8.4 mg/dL Low 8.6 - 10. 4 mg/dL [place] Chloride [Moles/Vol] 102 mmol/L 98 - 10 7 mmol/L [place] CO2 [Moles/Vol] 24 mmol/L 20 - 31 mmol/L [place] Creatinine [Mass/Vol] 1.16 mg/dL High 0.5 - 0.9 mg/dL [place] GFR 54 mL/min Low >60 [place] GFR Non- 45 mL/min Low >60 [place] Glucose [Mass/Vol] 128 mg/dL High 70 - 99 mg/dL [place] Interpretation and review of laboratory results Abnormal [place] Potassium [Moles/Vol] 3.3 mmol/L Low 3.7 - 5.3 mmol/L [place] Protein [Mass/Vol] 6.3 g/dL Low 6.4 - 8.3 g/dL [place] Sodium [Moles/Vol] 142 mmol/L 135 - 144 mmol/L [place] Urea nitrogen [Mass/Vol] 24 mg/dL High 8 - 23 mg/dL [place] Metabolic Panelon 04-05-2020 GFR/1.73 sq M predicted among non-blacks MDRD (S/P/Bld) [Vol rate/Area] [place] Comment on above: Stage 1: Some [...] body mass. Additional eGFR calculator available at: http://www.[employer]/multiple_crcl_2012.htm Basic Metabolic Panel w/ Ref tosha to MGon 04-03-2020 Anion gap [Moles/Vol] 18 mmol/L High 9 - 17 mmol/L [place] Bun/Cre Ratio 26 [place] Calcium [Mass/Vol] 9.0 mg/dL 8.6 - 10. 4 mg/dL [place] Chloride [Moles/Vol] 96 mmol/L Low 98 - 10 7 mmol/L [place] CO2 [Moles/Vol] 26 mmol/L 20 - 31 mmol/L [place] Creatinine [Mass/Vol] 1.17 mg/dL High 0.5 - 0.9 mg/dL [place] GFR 54 mL/min Low >60 [place] GFR Non- 44 mL/min Low >60 [place] Glucose [Mass/Vol] 157 mg/dL High 70 - 99 mg/dL [place] Interpretation and review of laboratory results Abnormal [place] Potassium [Moles/Vol] 3.5 mmol/L Low 3.7 - 5.3 mmol/L [place] Sodium [Moles/Vol] 140 mmol/L 135 - 144 mmol/L [place] Urea nitrogen [Mass/Vol] 30 mg/dL High 8 - 23 mg/dL [place] CBCon 04-03-2020 Erythrocyte distribution width (RBC) [Ratio] 14.9 % High 11.8 - 14.4 % [place] Hematocrit (Bld) [Volume fraction] 34.0 % Low 36.3 - 47.1 % [place] Hemoglobin (Bld) [Mass/Vol] 10.8 g/dL Low 11.9 - 15.1 g/dL [place] Interpretation and review of laboratory results Abnormal [place] MCH (RBC) [Entitic mass] 30.9 pg 25. 2 - 33.5 pg [place] MCHC (RBC) [Mass/Vol] 31.8 g/dL 28.4 - 34.8 g/dL [place] MCV (RBC) [Entitic vol] 97.4 fL 82.6 - 102.9 fL [place] Platelet mean volume (Bld) [Entitic vol] 10.6 fL 8.1 - 13.5 fL [place] Platelets (Bld) [#/Vol] 455 10*3/uL [place] RBC (Bld) [#/Vol] 3.49 10*6/uL Low 3.95 - 5.1 1 m/uL [place] WBC (Bld) [#/Vol] 17.6 10*3/uL [place] WBC (Bld) [#/Vol] 0.0 10*3/uL 0.0 per 10 0 WBC [place] EKG 12 Leadon 04-03-2020 Atrial Rate 78 BPM [place] P [place] 90 degrees [place] P-R Interval 174 ms [place] Q-T Interval 426 ms [place] QRS Duration 114 ms [place] QTc Calculation (Bazett) 485 ms [place] R [place] -27 degrees [place] T [place] 61 degrees [place] Urea nitrogen [Mass/Vol] Sinus rhythm wi th Premature atrial complexes Incomplete left bundle branch block Left ventricular hypertrophy with repolarization abnormality Abnormal ECG When compared with ECG of 02-APR-2020 14:43, Premature atrial complexes are now Present Minimal criteria for Septal infarct are no longer Present Confirmed by Sadie GRACE MD ([id number]) on 04/03/2020 7:17:15 AM [place] Ventricular Rate 78 BPM [place], Mhpn Incoming E kg Results From [facility] - 04/03/2020 7:17 AM EDT Sinus rhythm with Premature atrial complexes Incomplete left bundle branch block Left ventricular hypertrophy with repolarization abnormality Abnormal ECG When compared with ECG of 02-APR-2020 14:43, Premature atrial complexes are now Present Minimal criteria for Septal infarct are no longer Present Confirmed by Sadie GRACE MD ([id number]) on 04/03/2020 7:17:15 AM [place] Lactic acid, plasmaon 2019 Lactate [Moles/Vol] 1.9 mmol/L 0.5 - 2. 2 mmol/L [place] Lactic Acid, Whole Blood NOT REPORTED 0.7 - 2.1 mmol/L [place] Magnesiumon 04-03-2020 Magnesium [Mass/Vol] 1.9 mg/dL 1.6 - 2 .6 mg/dL [place] Metabolic Panelon 04-03-2020 GFR/1.73 sq M predicted among non-blacks MDRD (S/P/Bld) [Vol rate/Area] [place] Comment on above: Stage 1: Some [...] body mass. Additional eGFR calculator available at: http://www.[employer]/multiple_crcl_2012.htm Basic Metabolic Panelon Anion gap [Moles/Vol] 16 mmol/L 9 - 17 mmol/L [place] Bun/Cre Ratio 26 High [place] Calcium [Mass/Vol] 8.9 mg/dL 8.6 - 10. 4 mg/dL [place] Chloride [Moles/Vol] 92 mmol/L Low 98 - 10 7 mmol/L [place] CO2 [Moles/Vol] 29 mmol/L 20 - 31 mmol/L [place] Creatinine [Mass/Vol] 1.41 mg/dL High 0.5 - 0.9 mg/dL [place] GFR 43 mL/min Low >60 [place] GFR Non- 36 mL/min Low >60 [place] Glucose [Mass/Vol] 200 mg/dL High 70 - 99 mg/dL [place] Interpretation and review of laboratory results Abnormal [place] Potassium [Moles/Vol] 2.9 mmol/L Critically low 3.7 - 5.3 mmol/L [place] Sodium [Moles/Vol] 137 mmol/L 135 - 144 mmol/L [place] Urea nitrogen [Mass/Vol] 37 mg/dL High 8 - 23 mg/dL [place] Basic Metabolic Panel w/ Ref tosha to MGon 04-02-2020 Anion gap [Moles/Vol] 15 mmol/L 9 - 17 mmol/L [place] Bun/Cre Ratio 26 High [place] Calcium [Mass/Vol] 8.6 mg/dL 8.6 - 10. 4 mg/dL [place] Chloride [Moles/Vol] 96 mmol/L Low 98 - 10 7 mmol/L [place] CO2 [Moles/Vol] 28 mmol/L 20 - 31 mmol/L [place] Creatinine [Mass/Vol] 1.33 mg/dL High 0.5 - 0.9 mg/dL [place] GFR 46 mL/min Low >60 [place] GFR Non- 38 mL/min Low >60 [place] Glucose [Mass/Vol] 149 mg/dL High 70 - 99 mg/dL [place] Interpretation and review of laboratory results Abnormal [place] Potassium [Moles/Vol] 3.4 mmol/L Low 3.7 - 5.3 mmol/L [place] Sodium [Moles/Vol] 139 mmol/L 135 - 144 mmol/L [place] Urea nitrogen [Mass/Vol] 35 mg/dL High 8 - 23 mg/dL [place] CBC Auto Differentialon Basophils (Bld) [#/Vol] 10*3/uL [place] Basophils/100 WBC (Bld) 0 % 0 - 2 % [place] Differential Type NOT REPORTED [place] Eosinophils (Bld) [#/Vol] 10*3/uL [place] Eosinophils/100 WBC (Bld) 0 % Low 1 - 4 % [place] Erythrocyte distribution width (RBC) [Ratio] 14.7 % High 11.8 - 14.4 % [place] Hematocrit (Bld) [Volume fraction] 32.6 % Low 36.3 - 47.1 % [place] Hemoglobin (Bld) [Mass/Vol] 10.5 g/dL Low 11.9 - 15.1 g/dL [place] Immature granulocytes (Bld) [#/Vol] 1 % High 0 [place] Immature granulocytes (Bld) [#/Vol] 0.15 10*3/uL [place] Interpretation and review of laboratory results Abnormal [place] Lymphocytes (Bld) [#/Vol] 1.25 10*3/uL [place] Lymphocytes/100 WBC (Bld) 7 % Low 24 - 43 % [place] MCH (RBC) [Entitic mass] 30.7 pg 25. 2 - 33.5 pg [place] MCHC (RBC) [Mass/Vol] 32.2 g/dL 28.4 - 34.8 g/dL [place] MCV (RBC) [Entitic vol] 95.3 fL 82.6 - 102.9 fL [place] Monocytes (Bld) [#/Vol] 1.50 10*3/uL [place] Monocytes/100 WBC (Bld) 9 % 3 - 12 % [place] Platelet mean volume (Bld) [Entitic vol] 10.8 fL 8.1 - 13.5 fL [place] Platelets (Bld) [#/Vol] NOT REPORTED [place] Platelets (Bld) [#/Vol] 401 10*3/uL [place] RBC (Bld) [#/Vol] 3.42 10*6/uL Low 3.95 - 5.1 1 m/uL [place] RBC morphology finding Nom (Bld) NOT REPORTED [place] Segmented neutrophils/100 WBC (Bld) 83 % High 36 - 65 % [place] Segs Absolute 14.35 High [place] WBC (Bld) [#/Vol] 17.3 10*3/uL [place] WBC (Bld) [#/Vol] 0.0 10*3/uL 0.0 per 10 0 WBC [place] WBC Morphology NOT REPORTED [place] EKG 12 Leadon 04-02-2020 Atrial Rate 73 BPM [place] P [place] 90 degrees [place] P-R Interval 192 ms [place] Q-T Interval 430 ms [place] QRS Duration 108 ms [place] QTc Calculation (Bazett) 473 ms [place] R [place] -33 degrees [place] T [place] 50 degrees [place] Ventricular Rate 73 BPM [place] Normal sinus rhythm Left axis deviation Pulmonary disease pattern Left ventricular hypertrophy with repolarization abnormality Cannot rule out Septal infarct (cited on or before 30-JUN-2001) Abnormal ECG When compared with ECG of 11-NOV-2011 11:12, QRS duration has increased Questionable change in initial forces of Anterior leads Confirmed by Sadie GRACE MD ([id number]) on 04/02/2020 4:19:24 PM [place], Mhpn Incoming E kg Results From [facility] - 04/02/2020 4:19 PM EDT Normal sinus rhythm Left axis deviation Pulmonary disease pattern Left ventricular hypertrophy with repolarization abnormality Cannot rule out Septal infarct (cited on or before 30-JUN-2001) Abnormal ECG When compared with ECG of 11-NOV-2011 11:12, QRS duration has increased Questionable change in initial forces of Anterior leads Confirmed by Sadie GRACE MD ([id number]) on 04/02/2020 4:19:24 PM [place] Magnesiumon 04-02-2020 Magnesium [Mass/Vol] 2.0 mg/dL 1.6 - 2 .6 mg/dL [place] Metabolic Panelon 04-02-2020 GFR/1.73 sq M predicted among non-blacks MDRD (S/P/Bld) [Vol rate/Area] [place] Comment on above: Average GFR for 70 o r more years old: 75 mL/min/1.73sq m Chronic Kidney Disease: <60 mL/min/1.73sq m Kidney failure: <15 mL/min/1.73sq m eGFR calculated using average adult body mass. Additional eGFR calculator available at: http://www.[employer]/Transphorm_crcl_2012.htm Stage 1: Some kidney damage normal GFR Stage 2: Mild kidney damage GFR 60-89 Stage 3: Moderate kidney damage GFR 30-59 Stage 4: Severe kidney damage GFR 15-29 Stage 5: Severe kidney damage GFR <15 ESRD - chronic treatment by dialysis or transplant GFR/1.73 sq M predicted among non-blacks MDRD (S/P/Bld) [Vol rate/Area] [place] Comment on above: Average GFR for 70 o r more years old: 75 mL/min/1.73sq m Chronic Kidney Disease: <60 mL/min/1.73sq m Kidney failure: <15 mL/min/1.73sq m eGFR calculated using average adult body mass. Additional eGFR calculator available at: http://www.[employer]/multiple_crcl_2012.htm Stage 1: Some kidney damage normal GFR Stage 2: Mild kidney damage GFR 60-89 Stage 3: Moderate kidney damage GFR 30-59 Stage 4: Severe kidney damage GFR 15-29 Stage 5: Severe kidney damage GFR <15 ESRD - chronic treatment by dialysis or transplant Troponinon 04-02-2020 Interpretation and review of laboratory results Abnormal [place] Troponin I.cardiac [Mass/Vol] NOT REPORTED [place] Troponin T.cardiac [Mass/Vol] NOT REPORTED <0.03 ng/mL [place] Troponin, High Sensitivity 44 ng/L High 0 - 14 ng/L [place] Comment on above: High Sensitivity Troponin values cannot be compared with other Troponin methodologies. Patients with high levels of Biotin oral intake (i.e >5mg/day) may have falsely decreased Troponin levels. Samples collected within 8 hours of biotin intake may require additional information for diagnosis. Interpretation and review of laboratory results Abnormal [place] Troponin I.cardiac [Mass/Vol] NOT REPORTED [place] Troponin T.cardiac [Mass/Vol] NOT REPORTED <0.03 ng/mL [place] Troponin, High Sensitivity 47 ng/L High 0 - 14 ng/L [place] Comment on above: High Sensitivity Troponin values cannot be compared with other Troponin methodologies. Patients with high levels of Biotin oral intake (i.e >5mg/day) may have falsely decreased Troponin levels. Samples collected within 8 hours of biotin intake may require additional information for diagnosis. Urinalysis with Microscopico n 04-02-2020 Amorphous, UA NOT REPORTED None [place] Bacteria, UA 4+ Abnormal None [place] Bilirubin Urine Negative NEGATIVE [place] Casts UA NOT REPORTED /LPF [place] Color, UA YELLOW YELLOW [place] Crystals, UA NOT REPORTED None /HPF [place] Epithelial Cells UA 0 TO 2 [place] Glucose, Ur Negative NEGATIVE [place] Interpretation and review of laboratory results Abnormal [place] Ketones Ql (U) Negative NEGATIVE [place] Leukocyte esterase Test strip Ql (U) Negative NEGATIVE [place] Mucus, UA NOT REPORTED None [place] Nitrite, Urine Positive Abnormal NEGATIVE [place] Other Observations UA NOT REPORTED NOT REQ. [place] pH, UA 6.0 [place] Protein (U) [Mass/Vol] 1+ Abnormal NEGATIVE [place] RBC (U) [#/Vol] 0 TO 2 [place] Renal Epithelial, UA NOT REPORTED 0 /HPF [place] Specific [place], UA 1.025 High [place], [place] Trichomonas, UA NOT REPORTED None [place] Turbidity UA SLIGHTLY CLOUDY Abnormal CLEAR [place] Urinalysis Comments NOT REPORTED [place] Urine Hgb 1+ Abnormal NEGATIVE [place] Urobilinogen, Urine Normal Normal [place] WBC, UA 2 TO 5 [place] Yeast, UA NOT REPORTED None [place] XR CHEST 1 VWon 04-02-2020 No acute cardiopulmonary disease. [place], [place]pn Incoming Radiant Results From [facility] - 04/02/2020 8:01 PM EDT EXAMINATION: ONE [...] osseous abnormality. IMPRESSION: No acute cardiopulmonary disease. [place] EXAMINATION: ONE XRA Y VIEW OF [...] edema. No pneumothorax. No acute osseous abnormality. [place] CBC Auto Differentialon 02-26 Basophils (Bld) [#/Vol] 10*3/uL [place] Basophils/100 WBC (Bld) 0 % 0 - 2 % [place] Differential Type NOT REPORTED [place] Eosinophils (Bld) [#/Vol] 0.07 10*3/uL [place] Eosinophils/100 WBC (Bld) 1 % 1 - 4 % [place] Erythrocyte distribution width (RBC) [Ratio] 14.1 % 11.8 - 14.4 % [place] Hematocrit (Bld) [Volume fraction] 35.7 % Low 36.3 - 47.1 % [place] Hemoglobin (Bld) [Mass/Vol] 11.1 g/dL Low 11.9 - 15.1 g/dL [place] Immature granulocytes (Bld) [#/Vol] 0.04 10*3/uL [place] Immature granulocytes (Bld) [#/Vol] 0 % 0 [place] Interpretation and review of laboratory results Abnormal [place] Lymphocytes (Bld) [#/Vol] 1.62 10*3/uL [place] Lymphocytes/100 WBC (Bld) 14 % Low 24 - 43 % [place] MCH (RBC) [Entitic mass] 31.5 pg 25. 2 - 33.5 pg [place] MCHC (RBC) [Mass/Vol] 31.1 g/dL 28.4 - 34.8 g/dL [place] MCV (RBC) [Entitic vol] 101.4 fL 82.6 - 102.9 fL [place] Monocytes (Bld) [#/Vol] 1.43 10*3/uL High [place] Monocytes/100 WBC (Bld) 12 % 3 - 12 % [place] Platelet mean volume (Bld) [Entitic vol] 10.3 fL 8.1 - 13.5 fL [place] Platelets (Bld) [#/Vol] 245 10*3/uL [place] Platelets (Bld) [#/Vol] NOT REPORTED [place] RBC (Bld) [#/Vol] 3.52 10*6/uL Low 3.95 - 5.1 1 m/uL [place] RBC morphology finding Nom (Bld) NOT REPORTED [place] Segmented neutrophils/100 WBC (Bld) 73 % High 36 - 65 % [place] Segs Absolute 8.49 High [place] WBC (Bld) [#/Vol] 0.0 10*3/uL 0.0 per 10 0 WBC [place] WBC (Bld) [#/Vol] 11.7 10*3/uL [place] WBC Morphology NOT REPORTED [place] Comprehensive Metabolic Pane riddhi 03-25-2020 Albumin [Mass/Vol] 3.3 g/dL Low 3.5 - 5.2 g/dL [place] Albumin/Globulin [Mass ratio] 1.1 {ratio} [place] ALP [Catalytic activity/Vol] 118 U/L High 35 - 104 U/L [place] ALT [Catalytic activity/Vol] 14 U/L 5 - 33 U/L [place] Anion gap [Moles/Vol] 14 mmol/L 9 - 17 mmol/L [place] AST [Catalytic activity/Vol] 15 U/L <32 [place] Bilirubin Ql (U) 0.39 mg/dL 0.3 - 1.2 mg/dL [place] Bun/Cre Ratio 17 [place] Calcium [Mass/Vol] 9.1 mg/dL 8.6 - 10. 4 mg/dL [place] Chloride [Moles/Vol] 101 mmol/L 98 - 10 7 mmol/L [place] CO2 [Moles/Vol] 27 mmol/L 20 - 31 mmol/L [place] Creatinine [Mass/Vol] 1.32 mg/dL High 0.5 - 0.9 mg/dL [place] GFR 47 mL/min Low >60 [place] GFR Non- 39 mL/min Low >60 [place] Glucose [Mass/Vol] 140 mg/dL High 70 - 99 mg/dL [place] Interpretation and review of laboratory results Abnormal [place] Potassium [Moles/Vol] 3.7 mmol/L 3.7 - 5.3 mmol/L [place] Protein [Mass/Vol] 6.2 g/dL Low 6.4 - 8.3 g/dL [place] Sodium [Moles/Vol] 142 mmol/L 135 - 144 mmol/L [place] Urea nitrogen [Mass/Vol] 22 mg/dL 8 - 23 mg/dL [place] Metabolic Panelon 03-25-2020 GFR/1.73 sq M predicted among non-blacks MDRD (S/P/Bld) [Vol rate/Area] [place] Comment on above: Average GFR for 70 o r more years old: 75 mL/min/1.73sq m Chronic Kidney Disease: <60 mL/min/1.73sq m Kidney failure: <15 mL/min/1.73sq m eGFR calculated using average adult body mass. Additional eGFR calculator available at: http://[email or web address] Stage 1: Some kidney damage normal GFR Stage 2: Mild kidney damage GFR 60-89 Stage 3: Moderate kidney damage GFR 30-59 Stage 4: Severe kidney damage GFR 15-29 Stage 5: Severe kidney damage GFR <15 ESRD - chronic treatment by dialysis or transplant APTTon 03-23-2020 aPTT Coag (Bld) [Time] 33.4 s [place] Comment on above: IV Heparin Therapy Range: 62.0-94.0 Basic Metabolic Panel w/ Ref tosha to MGon 03-23-2020 Anion gap [Moles/Vol] 16 mmol/L 9 - 17 mmol/L [place] Bun/Cre Ratio 17 [place] Calcium [Mass/Vol] 9.2 mg/dL 8.6 - 10. 4 mg/dL [place] Chloride [Moles/Vol] 99 mmol/L 98 - 10 7 mmol/L [place] CO2 [Moles/Vol] 25 mmol/L 20 - 31 mmol/L [place] Creatinine [Mass/Vol] 1.43 mg/dL High 0.5 - 0.9 mg/dL [place] GFR 43 mL/min Low >60 [place] GFR Non- 35 mL/min Low >60 [place] Glucose [Mass/Vol] 112 mg/dL High 70 - 99 mg/dL [place] Interpretation and review of laboratory results Abnormal [place] Potassium [Moles/Vol] 4.1 mmol/L 3.7 - 5.3 mmol/L [place] Sodium [Moles/Vol] 140 mmol/L 135 - 144 mmol/L [place] Urea nitrogen [Mass/Vol] 25 mg/dL High 8 - 23 mg/dL [place] CBC Auto Differentialon 02-26 Basophils (Bld) [#/Vol] 10*3/uL [place] Basophils/100 WBC (Bld) 0 % 0 - 2 % [place] Differential Type NOT REPORTED [place] Eosinophils (Bld) [#/Vol] 0.12 10*3/uL [place] Eosinophils/100 WBC (Bld) 1 % 1 - 4 % [place] Erythrocyte distribution width (RBC) [Ratio] 14.5 % High 11.8 - 14.4 % [place] Hematocrit (Bld) [Volume fraction] 38.0 % 36.3 - 47.1 % [place] Hemoglobin (Bld) [Mass/Vol] 11.4 g/dL Low 11.9 - 15.1 g/dL [place] Immature granulocytes (Bld) [#/Vol] 0 % 0 [place] Immature granulocytes (Bld) [#/Vol] 0.03 10*3/uL [place] Interpretation and review of laboratory results Abnormal [place] Lymphocytes (Bld) [#/Vol] 1.80 10*3/uL [place] Lymphocytes/100 WBC (Bld) 17 % Low 24 - 43 % [place] MCH (RBC) [Entitic mass] 31.1 pg 25. 2 - 33.5 pg [place] MCHC (RBC) [Mass/Vol] 30.0 g/dL 28.4 - 34.8 g/dL [place] MCV (RBC) [Entitic vol] 103.8 fL High 82.6 - 102.9 fL [place] Monocytes (Bld) [#/Vol] 1.42 10*3/uL [place] Monocytes/100 WBC (Bld) 13 % High 3 - 12 % [place] Platelet mean volume (Bld) [Entitic vol] 10.2 fL 8.1 - 13.5 fL [place] Platelets (Bld) [#/Vol] NOT REPORTED [place] Platelets (Bld) [#/Vol] 245 10*3/uL [place] RBC (Bld) [#/Vol] 3.66 10*6/uL Low 3.95 - 5.1 1 m/uL [place] RBC morphology finding Nom (Bld) NOT REPORTED [place] Segmented neutrophils/100 WBC (Bld) 69 % High 36 - 65 % [place] Segs Absolute 7.34 [place] WBC (Bld) [#/Vol] 10.7 10*3/uL [place] WBC (Bld) [#/Vol] 0.0 10*3/uL 0.0 per 10 0 WBC [place] WBC Morphology NOT REPORTED [place] COVID-19, PCRon 03-23-2020 SARS-CoV-2 [place] SARS-CoV-2, PCR [place] SARS-CoV-2, Rapid Not Detected Not Detected [place] Comment on above: Rapid NAAT: The [...] management decisions. Fact sheet for Healthcare Providers: https://www.fda.gov/media/954397/download Fact sheet for Patients: https://www.fda.gov/media/174287/download Methodology: Isothermal Nucleic Acid Amplification Source .NASOPHARYNGEAL SWAB [place], [place] Metabolic Panelon 03-23-2020 GFR/1.73 sq M predicted among non-blacks MDRD (S/P/Bld) [Vol rate/Area] [place] Comment on above: Average GFR for 70 o r more years old: 75 mL/min/1.73sq m Chronic Kidney Disease: <60 mL/min/1.73sq m Kidney failure: <15 mL/min/1.73sq m eGFR calculated using average adult body mass. Additional eGFR calculator available at: http://www.Usermind/multiple_crcl_2012.htm Stage 1: Some kidney damage normal GFR Stage 2: Mild kidney damage GFR 60-89 Stage 3: Moderate kidney damage GFR 30-59 Stage 4: Severe kidney damage GFR 15-29 Stage 5: Severe kidney damage GFR <15 ESRD - chronic treatment by dialysis or transplant Protime-INRon 03-23-2020 INR Coag (PPP) [Relative time] 1.2 {INR} [place] Comment on above: Non-therapeutic Range: INR = 0.9-1.2 Therapeutic Range: Moderate Anticoagulant Intensity: INR = 2.0-3.0 High Anticoagulant Intensity: INR = 2.5-3.5 Interpretation and review of laboratory results Abnormal [place] PT Coag (PPP) [Time] 14.9 s High [place] XR HIP 2-3 VW W PELVIS LEFTo n 03-23-2020 Erythrocyte distribution width (RBC) [Ratio] Hardware fixation of the proximal left femoral fracture without evidence for complication. Degenerative change of the SI joints and hip joints. [place], M[facility]pn Incoming Radiant Results From [employer] - 03/23/2020 3:40 PM EDT EXAMINATION: ONE [...] of the SI joints and hip joints. [place] EXAMINATION: ONE XRA Y VIEW OF [...] joints. The surrounding soft tissues are unremarkable. [place] CBC Auto Differentialon 02-25 Basophils (Bld) [#/Vol] 10*3/uL [place] Basophils/100 WBC (Bld) 0 % 0 - 2 % [place] Differential Type NOT REPORTED [place] Eosinophils (Bld) [#/Vol] 0.25 10*3/uL [place] Eosinophils/100 WBC (Bld) 5 % High 1 - 4 % [place] Erythrocyte distribution width (RBC) [Ratio] 16.0 % High 11.8 - 14.4 % [place] Hematocrit (Bld) [Volume fraction] 34.2 % Low 36.3 - 47.1 % [place] Hemoglobin (Bld) [Mass/Vol] 10.0 g/dL Low 11.9 - 15.1 g/dL [place] Immature granulocytes (Bld) [#/Vol] 0.03 10*3/uL [place] Immature granulocytes (Bld) [#/Vol] 1 % High 0 [place] Interpretation and review of laboratory results Abnormal [place] Lymphocytes (Bld) [#/Vol] 1.50 10*3/uL [place] Lymphocytes/100 WBC (Bld) 30 % 24 - 43 % [place] MCH (RBC) [Entitic mass] 31.2 pg 25. 2 - 33.5 pg [place] MCHC (RBC) [Mass/Vol] 29.2 g/dL 28.4 - 34.8 g/dL [place] MCV (RBC) [Entitic vol] 106.5 fL High 82.6 - 102.9 fL [place] Monocytes (Bld) [#/Vol] 0.70 10*3/uL [place] Monocytes/100 WBC (Bld) 14 % High 3 - 12 % [place] Platelet mean volume (Bld) [Entitic vol] 10.2 fL 8.1 - 13.5 fL [place] Platelets (Bld) [#/Vol] NOT REPORTED [place] Platelets (Bld) [#/Vol] 311 10*3/uL [place] RBC (Bld) [#/Vol] 3.21 10*6/uL Low 3.95 - 5.1 1 m/uL [place] RBC morphology finding Nom (Bld) NOT REPORTED [place] Segmented neutrophils/100 WBC (Bld) 50 % 36 - 65 % [place] Segs Absolute 2.44 [place] WBC (Bld) [#/Vol] 0.0 10*3/uL 0.0 per 10 0 WBC [place] WBC (Bld) [#/Vol] 4.9 10*3/uL [place] WBC Morphology NOT REPORTED [place] Comprehensive Metabolic Pane riddhi 03-12-2020 Albumin [Mass/Vol] 3.3 g/dL Low 3.5 - 5.2 g/dL [place] Albumin/Globulin [Mass ratio] 1.6 {ratio} [place] ALP [Catalytic activity/Vol] 124 U/L High 35 - 104 U/L [place] ALT [Catalytic activity/Vol] 18 U/L 5 - 33 U/L [place] Anion gap [Moles/Vol] 14 mmol/L 9 - 17 mmol/L [place] AST [Catalytic activity/Vol] 20 U/L <32 [place] Bilirubin Ql (U) 0.19 mg/dL Low 0.3 - 1.2 mg/dL [place] Bun/Cre Ratio 20 [place] Calcium [Mass/Vol] 8.6 mg/dL 8.6 - 10. 4 mg/dL [place] Chloride [Moles/Vol] 106 mmol/L 98 - 10 7 mmol/L [place] CO2 [Moles/Vol] 24 mmol/L 20 - 31 mmol/L [place] Creatinine [Mass/Vol] 1.5 mg/dL High 0.5 - 0.9 mg/dL [place] GFR 40 mL/min Low >60 [place] GFR Non- 33 mL/min Low >60 [place] Glucose [Mass/Vol] 78 mg/dL 70 - 99 mg/dL [place] Interpretation and review of laboratory results Abnormal [place] Potassium [Moles/Vol] 4.3 mmol/L 3.7 - 5.3 mmol/L [place] Protein [Mass/Vol] 5.4 g/dL Low 6.4 - 8.3 g/dL [place] Sodium [Moles/Vol] 144 mmol/L 135 - 144 mmol/L [place] Urea nitrogen [Mass/Vol] 30 mg/dL High 8 - 23 mg/dL [place] Metabolic Panelon 03-12-2020 GFR/1.73 sq M predicted among non-blacks MDRD (S/P/Bld) [Vol rate/Area] [place] Comment on above: Stage 1: Some [...] body mass. Additional eGFR calculator available at: http://www.[employer].Appconomy/multiple_crcl_2012.htm CBC Auto Differentialon -0 Basophils (Bld) [#/Vol] 10*3/uL [place] Basophils/100 WBC (Bld) 0 % 0 - 2 % [place] Differential Type NOT REPORTED [place] Eosinophils (Bld) [#/Vol] 0.25 10*3/uL [place] Eosinophils/100 WBC (Bld) 4 % 1 - 4 % [place] Erythrocyte distribution width (RBC) [Ratio] 17.5 % High 11.8 - 14.4 % [place] Hematocrit (Bld) [Volume fraction] 33.4 % Low 36.3 - 47.1 % [place] Hemoglobin (Bld) [Mass/Vol] 10.0 g/dL Low 11.9 - 15.1 g/dL [place] Immature granulocytes (Bld) [#/Vol] 0.03 10*3/uL [place] Immature granulocytes (Bld) [#/Vol] 1 % High 0 [place] Interpretation and review of laboratory results Abnormal [place] Lymphocytes (Bld) [#/Vol] 1.40 10*3/uL [place] Lymphocytes/100 WBC (Bld) 23 % Low 24 - 43 % [place] MCH (RBC) [Entitic mass] 31.1 pg 25. 2 - 33.5 pg [place] MCHC (RBC) [Mass/Vol] 29.9 g/dL 28.4 - 34.8 g/dL [place] MCV (RBC) [Entitic vol] 103.7 fL High 82.6 - 102.9 fL [place] Monocytes (Bld) [#/Vol] 0.58 10*3/uL [place] Monocytes/100 WBC (Bld) 9 % 3 - 12 % [place] Platelet mean volume (Bld) [Entitic vol] 9.6 fL 8.1 - 13.5 fL [place] Platelets (Bld) [#/Vol] NOT REPORTED [place] Platelets (Bld) [#/Vol] 403 10*3/uL [place] RBC (Bld) [#/Vol] 3.22 10*6/uL Low 3.95 - 5.1 1 m/uL [place] RBC morphology finding Nom (Bld) NOT REPORTED [place] Segmented neutrophils/100 WBC (Bld) 63 % 36 - 65 % [place] Segs Absolute 3.89 [place] WBC (Bld) [#/Vol] 0.0 10*3/uL 0.0 per 10 0 WBC [place] WBC (Bld) [#/Vol] 6.2 10*3/uL [place] WBC Morphology NOT REPORTED [place] Comprehensive Metabolic Pane riddhi 02-27-2020 Albumin [Mass/Vol] 3.3 g/dL Low 3.5 - 5.2 g/dL [place] Albumin/Globulin [Mass ratio] 1.3 {ratio} [place] ALP [Catalytic activity/Vol] 145 U/L High 35 - 104 U/L [place] ALT [Catalytic activity/Vol] 40 U/L High 5 - 33 U/L [place] Anion gap [Moles/Vol] 11 mmol/L 9 - 17 mmol/L [place] AST [Catalytic activity/Vol] 34 U/L High <32 [place] Bilirubin Ql (U) 0.39 mg/dL 0.3 - 1.2 mg/dL [place] Bun/Cre Ratio 21 High [place] Calcium [Mass/Vol] 8.8 mg/dL 8.6 - 10. 4 mg/dL [place] Chloride [Moles/Vol] 107 mmol/L 98 - 10 7 mmol/L [place] CO2 [Moles/Vol] 24 mmol/L 20 - 31 mmol/L [place] Creatinine [Mass/Vol] 1.32 mg/dL High 0.5 - 0.9 mg/dL [place] GFR 47 mL/min Low >60 [place] GFR Non- 39 mL/min Low >60 [place] Glucose [Mass/Vol] 103 mg/dL High 70 - 99 mg/dL [place] Interpretation and review of laboratory results Abnormal [place] Potassium [Moles/Vol] 3.8 mmol/L 3.7 - 5.3 mmol/L [place] Protein [Mass/Vol] 5.9 g/dL Low 6.4 - 8.3 g/dL [place] Sodium [Moles/Vol] 142 mmol/L 135 - 144 mmol/L [place] Urea nitrogen [Mass/Vol] 28 mg/dL High 8 - 23 mg/dL [place] Metabolic Panelon 02-27-2020 GFR/1.73 sq M predicted among non-blacks MDRD (S/P/Bld) [Vol rate/Area] [place] Comment on above: Stage 1: Some [...] body mass. Additional eGFR calculator available at: http://www.[employer].Appconomy/multiple_crcl_2012.htm CBC Auto Differentialon 01-26 Basophils (Bld) [#/Vol] 10*3/uL [place] Basophils/100 WBC (Bld) 0 % 0 - 2 % [place] Differential Type NOT REPORTED [place] Eosinophils (Bld) [#/Vol] 0.33 10*3/uL [place] Eosinophils/100 WBC (Bld) 4 % 1 - 4 % [place] Erythrocyte distribution width (RBC) [Ratio] 16.7 % High 11.8 - 14.4 % [place] Hematocrit (Bld) [Volume fraction] 31.9 % Low 36.3 - 47.1 % [place] Hemoglobin (Bld) [Mass/Vol] 9.7 g/dL Low 11.9 - 15.1 g/dL [place] Immature granulocytes (Bld) [#/Vol] 0.20 10*3/uL [place] Immature granulocytes (Bld) [#/Vol] 2 % High 0 [place] Interpretation and review of laboratory results Abnormal [place] Lymphocytes (Bld) [#/Vol] 2.08 10*3/uL [place] Lymphocytes/100 WBC (Bld) 23 % Low 24 - 43 % [place] MCH (RBC) [Entitic mass] 30.8 pg 25. 2 - 33.5 pg [place] MCHC (RBC) [Mass/Vol] 30.4 g/dL 28.4 - 34.8 g/dL [place] MCV (RBC) [Entitic vol] 101.3 fL 82.6 - 102.9 fL [place] Monocytes (Bld) [#/Vol] 1.09 10*3/uL [place] Monocytes/100 WBC (Bld) 12 % 3 - 12 % [place] Platelet mean volume (Bld) [Entitic vol] 9.8 fL 8.1 - 13.5 fL [place] Platelets (Bld) [#/Vol] NOT REPORTED [place] Platelets (Bld) [#/Vol] 468 10*3/uL [place] RBC (Bld) [#/Vol] 3.15 10*6/uL Low 3.95 - 5.1 1 m/uL [place] RBC morphology finding Nom (Bld) NOT REPORTED [place] Segmented neutrophils/100 WBC (Bld) 59 % 36 - 65 % [place] Segs Absolute 5.43 [place] WBC (Bld) [#/Vol] 0.0 10*3/uL 0.0 per 10 0 WBC [place] WBC (Bld) [#/Vol] 9.2 10*3/uL [place] WBC Morphology NOT REPORTED [place] Comprehensive Metabolic Pane riddhi 02-20-2020 Albumin [Mass/Vol] 3.3 g/dL Low 3.5 - 5.2 g/dL [place] Albumin/Globulin [Mass ratio] 1.2 {ratio} [place] ALP [Catalytic activity/Vol] 158 U/L High 35 - 104 U/L [place] ALT [Catalytic activity/Vol] 101 U/L High 5 - 33 U/L [place] Anion gap [Moles/Vol] 15 mmol/L 9 - 17 mmol/L [place] AST [Catalytic activity/Vol] 100 U/L High <32 [place] Bilirubin Ql (U) 0.43 mg/dL 0.3 - 1.2 mg/dL [place] Bun/Cre Ratio 23 [place] Calcium [Mass/Vol] 8.6 mg/dL 8.6 - 10. 4 mg/dL [place] Chloride [Moles/Vol] 102 mmol/L 98 - 10 7 mmol/L [place] CO2 [Moles/Vol] 22 mmol/L 20 - 31 mmol/L [place] Creatinine [Mass/Vol] 1.46 mg/dL High 0.5 - 0.9 mg/dL [place] GFR 42 mL/min Low >60 [place] GFR Non- 34 mL/min Low >60 [place] Glucose [Mass/Vol] 98 mg/dL 70 - 99 mg/dL [place] Interpretation and review of laboratory results Abnormal [place] Potassium [Moles/Vol] 3.6 mmol/L Low 3.7 - 5.3 mmol/L [place] Protein [Mass/Vol] 6.0 g/dL Low 6.4 - 8.3 g/dL [place] Sodium [Moles/Vol] 139 mmol/L 135 - 144 mmol/L [place] Urea nitrogen [Mass/Vol] 33 mg/dL High 8 - 23 mg/dL [place] Metabolic Panelon 02-20-2020 GFR/1.73 sq M predicted among non-blacks MDRD (S/P/Bld) [Vol rate/Area] [place] Comment on above: Stage 1: Some [...] body mass. Additional eGFR calculator available at: http://www.Usermind/multiple_crcl_2012.htm C Nelsondon 02-17-2020 C Bld -- - Final No growth at 5 days. Normal [facility] Comment on above: Performed By: #### E GFR #### [address] [address] C Bld Blood cultures x 2 - Final No growth at 5 days. Normal [facility] Comment on above: Performed By: #### F OL #### [address] [address] [place] [address] .eGFRon 02-15-2020 eGFR AA 40 mL/min/1.73m? Low >=60 [facility] Comment on above: Result Comment: Resu lt = 0-14.9 mL/min/1.73 m2 Kidney failure or Dialysis Result = 15-29 mL/min/1.73 m2 Severe decrease in GFR Result = 30-59 mL/min/1.73 m2 Moderate decrease in GFR Result >= 60 mL/min/1.73 m2 Normal or increased GFR Performed By: #### T IBC #### [address] [address] eGFR Non-AA 33 mL/min/1.73m? Low >=60 [facility] Comment on above: Result Comment: [...] dosing. Performed By: #### T IBC #### [address] [address] CBCon 02-15-2020 Erythrocyte distribution width (RBC) [Ratio] 14.7 % Normal 11.6-14.8 [facility] Comment on above: Performed By: #### F OL #### [address] [address] Hematocrit (Bld) [Volume fraction] 28.4 % Low 36.0-46.0 [facility] Comment on above: Performed By: #### F OL #### [address] [address] Hemoglobin (Bld) [Mass/Vol] 9.3 g/dL Low 12.0-16.0 [facility] Comment on above: Performed By: #### F OL #### [address] [address] MCH (RBC) [Entitic mass] 30.7 pg Normal 27.0-35.0 [facility] Comment on above: Performed By: #### F OL #### [address] [address] MCHC (RBC) [Mass/Vol] 32.8 % Normal 31.0-37.0 [facility] Comment on above: Performed By: #### F OL #### [address] [address] MCV (RBC) [Entitic vol] 93.4 fL Normal 80.0-100.0 B [facility] Comment on above: Performed By: #### F OL #### [address] [address] Platelet mean volume (Bld) [Entitic vol] 8.4 fL Normal 6.7-10.6 [facility] Comment on above: Performed By: #### F OL #### [address] [address] Platelets (Bld) [#/Vol] 246 x10*3/mcL Normal 150-350 [facility] Comment on above: Performed By: #### F OL #### [address] [address] RBC (Bld) [#/Vol] 3.04 x10*6/mcL Low 3.80-5.20 [facility] Comment on above: Performed By: #### F OL #### [address] [address] WBC (Bld) [#/Vol] 8.2 x10*3/mcL Normal 4.5-11.0 [facility] Comment on above: Performed By: #### F OL #### [address] [address] Magnesiumon 02-15-2020 Magnesium [Mass/Vol] 2.1 mg/dL Normal 1.7-2.4 [facility] Comment on above: Performed By: #### T [facility] #### [facility] [address] [place] [address] Nephrology Progress Noteon 0 02-15-2020 Nephrology Progress [...] Oral, q6hr, PRN acetaminophen, 1000 mg, Oral, [id number] Times ALPRAZolam, 0.25 mg, Oral, HS (at bedtime) calcitriol, 0.25 mcg, Oral, Mo/We/Fr Dulcolax Laxative, 10 mg, Oral, Daily, PRN Haldol, 2.5 mg, 0.5 mL, IM, [id number] Times, PRN hydrALAZINE, 25 mg, Oral, TID Lovenox, 30 mg, 0.3 mL, Subcutaneous, q24hr meclizine, 25 mg, Oral, TID, PRN MiraLax, 17 g, 1 EA, Oral, Daily naloxone, 0.4 mg, 1 mL, IV Push, q2min, PRN Troy 5 mg-325 mg oral tablet, 1 tabs, [...] by Dr. Jordan on 02/09 Discharged to [place] for rehab post surgery. 6. Intertrochanteric fracture [...] Hearing loss sensory, bilateral Discharge planning to [place]. Follow-up with Dr. Chew on discharge. Electronically [...] now Electronically signed by Dilan Chew DO 02/15/20 23:31 EDT Normal [facility] Progress Note-Nurseon 2019 Progress Note-Nurse Nurse Serg called [facility] to give report regarding the discharge. [...] skin tears. Electronically signed by Ming Serg Skye 02/15/20 13:31 EDT Normal [facility] Provider Letteron 02-15-2020 Provider Letter Justino Dhaliwal DO [address] [place] [id number] Re: Jesús Nolan Date of Visit: 02/09/2020 Dear Justino Dhaliwal, I had the pleasure of taking care of your patient in the hospital. I have included my documentation for your review. Please let me know if you have any questions or concerns. Sincerely, Valerie Mota, [employer] C C Providers: The following document(s) were included in the letter: February 15, 2020 10:09:39 EDT - (02/15/2020) Hospitalist Discharge Summary Note Normal [facility] Renal Panelon 02-15-2020 Albumin [Mass/Vol] 3.0 g/dL Low 3.2-4.9 [facility] Comment on above: Result Comment: [facility] Laboratory updated the methodology used for albumin testing on 05/04/18. Albumin measurement was performed using a bromcresol purple dye-binding assay. Performed By: #### E GFR #### [address] [address] Anion gap [Moles/Vol] 15 mmol/L Normal 7-17 [facility] Comment on above: Performed By: #### E GFR #### [address] [address] Calcium [Mass/Vol] 8.2 mg/dL Low 8.5-10.3 [facility] Comment on above: Performed By: #### E GFR #### [address] [address] Chloride [Moles/Vol] 103 mmol/L Normal 98-110 [facility] Comment on above: Performed By: #### E GFR #### [address] [address] CO2 [Moles/Vol] 25 mmol/L Normal 22-32 [facility] Comment on above: Performed By: #### E GFR #### [address] [address] Creatinine [Mass/Vol] 1.51 mg/dL High 0.44-1.03 [facility] Comment on above: Performed By: #### E GFR #### [address] [address] Glucose [Mass/Vol] 105 mg/dL High 70-99 [facility] Comment on above: Performed By: #### E GFR #### [address] [address] Phosphate [Mass/Vol] 3.4 mg/dL Normal 2.5-4.6 [facility] Comment on above: Performed By: #### E GFR #### [address] [address] Potassium [Moles/Vol] 4.4 mmol/L Normal 3.4-4.8 [facility] Comment on above: Performed By: #### E GFR #### [address] [address] Sodium [Moles/Vol] 139 mmol/L Normal 133-142 [facility] Comment on above: Performed By: #### E GFR #### [address] [address] Urea nitrogen [Mass/Vol] 26 mg/dL Normal 8-26 [facility] Comment on above: Performed By: #### E GFR #### [address] [address] Urea nitrogen/Creatinine [Mass ratio] 17.2 mg/mg Normal 10.0-20.0 [facility] Comment on above: Performed By: #### E GFR #### [address] [address] [id number] RNA PCR Send O uton 02-15-2020 [id number] RNA by PCR Not Detected Normal Not Detected [facility] Comment on above: Order Comment: utmcf or nh placement in a couple days Result Comment: Miss ing Attachment Chartable Reference Lab Reports Can be viewed in source system Performed By: #### E GFR #### [address] [address] .eGFRon 02-14-2020 eGFR Non-AA 37 mL/min/1.73m? Low >=60 [facility] Comment on above: Result Comment: [...] dosing. Performed By: #### E GFR #### [address] [address] eGFR AA 45 mL/min/1.73m? Low >=60 [facility] Comment on above: Result Comment: Resu lt = 0-14.9 mL/min/1.73 m2 Kidney failure or Dialysis Result = 15-29 mL/min/1.73 m2 Severe decrease in GFR Result = 30-59 mL/min/1.73 m2 Moderate decrease in GFR Result >= 60 mL/min/1.73 m2 Normal or increased GFR Performed By: #### E GFR #### [address] [address] CBCon 02-14-2020 Erythrocyte distribution width (RBC) [Ratio] 14.5 % Normal 11.6-14.8 [facility] Comment on above: Performed By: #### T IBC #### [address] [address] Hematocrit (Bld) [Volume fraction] 26.8 % Low 36.0-46.0 [facility] Comment on above: Performed By: #### T IBC #### [address] [address] Hemoglobin (Bld) [Mass/Vol] 8.8 g/dL Low 12.0-16.0 [facility] Comment on above: Performed By: #### T IBC #### [address] [address] MCH (RBC) [Entitic mass] 30.6 pg Normal 27.0-35.0 [facility] Comment on above: Performed By: #### T IBC #### [address] [address] MCHC (RBC) [Mass/Vol] 33.0 % Normal 31.0-37.0 [facility] Comment on above: Performed By: #### T IBC #### [address] [address] MCV (RBC) [Entitic vol] 92.8 fL Normal 80.0-100.0 [facility] Comment on above: Performed By: #### T IBC #### [address] [address] Platelet mean volume (Bld) [Entitic vol] 8.7 fL Normal 6.7-10.6 [facility] Comment on above: Performed By: #### T IBC #### [address] [address] Platelets (Bld) [#/Vol] 190 x10*3/mcL Normal 150-350 [facility] Comment on above: Performed By: #### T IBC #### [address] [address] RBC (Bld) [#/Vol] 2.89 x10*6/mcL Low 3.80-5.20 [facility] Comment on above: Performed By: #### T IBC #### [address] [address] WBC (Bld) [#/Vol] 8.6 x10*3/mcL Normal 4.5-11.0 [facility] Comment on above: Performed By: #### T IBC #### [address] [address] Magnesiumon 02-14-2020 Magnesium [Mass/Vol] 2.2 mg/dL Normal 1.7-2.4 [facility] Comment on above: Performed By: #### P HOS #### [address] [address] Nephrology Progress Noteon 0 02-14-2020 Nephrology Progress [...] acute pulmonary process. Signed By: Manolo KUMAR, [facility] [employer] No qualifying data available. [...] Oral, q6hr, PRN acetaminophen, 1000 mg, Oral, [id number] Times ALPRAZolam, 0.25 mg, Oral, HS (at bedtime) calcitriol, 0.25 mcg, Oral, Mo//Fr Dulcolax Laxative, 10 mg, Oral, Daily, PRN Haldol, 2.5 mg, 0.5 mL, IM, [id number] Times, PRN hydrALAZINE, 25 mg, Oral, TID Lovenox, 30 mg, 0.3 mL, Subcutaneous, q24hr meclizine, 25 mg, Oral, TID, PRN naloxone, 0.4 mg, 1 mL, IV Push, q2min, PRN Troy 5 mg-325 mg oral tablet, 1 tabs, [...] Hearing loss sensory, bilateral Possible discharge to [facility] [place] testing pending. Follow-up with Dr. Chew on [...] Dilan Chew DO 02/14/20 22:40 EDT Normal [facility] Orthopedic Progress Noteon 0 02-14-2020 Orthopedic [...] Oral, q6hr, PRN acetaminophen, 1000 mg, Oral, [id number] Times ALPRAZolam, 0.25 mg, Oral, HS (at bedtime) calcitriol, 0.25 mcg, Oral, Mo// Dulcolax Laxative, 10 mg, Oral, Daily, PRN Haldol, 2.5 mg, 0.5 mL, IM, [id number] Times, PRN hydrALAZINE, 25 mg, Oral, TID Lovenox, 30 mg, 0.3 mL, Subcutaneous, q24hr meclizine, 25 mg, Oral, TID, PRN MiraLax, 17 g, 1 EA, Oral, Daily naloxone, 0.4 mg, 1 mL, IV Push, q2min, PRN Troy 5 mg-325 mg oral tablet, 1 tabs, [...] Naman Edmond PA-C 02/14/20 19:09 EDT Normal [facility] Renal Panelon 02-14-2020 Albumin [Mass/Vol] 2.9 g/dL Low 3.2-4.9 [facility] Comment on above: Result Comment: [facility] Laboratory updated the methodology used for albumin testing on 05/04/18. Albumin measurement was performed using a bromcresol purple dye-binding assay. Performed By: #### E GFR #### [address] [address] Anion gap [Moles/Vol] 14 mmol/L Normal 7-17 [facility] Comment on above: Performed By: #### E GFR #### [address] [address] Calcium [Mass/Vol] 8.1 mg/dL Low 8.5-10.3 [facility] Comment on above: Performed By: #### E GFR #### [address] [address] Chloride [Moles/Vol] 103 mmol/L Normal 98-110 [facility] Comment on above: Performed By: #### E GFR #### [address] [address] CO2 [Moles/Vol] 25 mmol/L Normal 22-32 [facility] Comment on above: Performed By: #### E GFR #### [address] [address] Creatinine [Mass/Vol] 1.37 mg/dL High 0.44-1.03 [facility] Comment on above: Performed By: #### E GFR #### [address] [address] Glucose [Mass/Vol] 115 mg/dL High 70-99 [facility] [facility] Comment on above: Performed By: #### E GFR #### [address] [address] Phosphate [Mass/Vol] 2.0 mg/dL Low 2.5-4.6 [facility] Comment on above: Performed By: #### E GFR #### [address] [address] Potassium [Moles/Vol] 3.9 mmol/L Normal 3.4-4.8 [facility] Comment on above: Performed By: #### E GFR #### [address] [address] Sodium [Moles/Vol] 138 mmol/L Normal 133-142 [facility] Comment on above: Performed By: #### E GFR #### [address] [address] Urea nitrogen [Mass/Vol] 20 mg/dL Normal 8-26 [facility] Comment on above: Performed By: #### E GFR #### [address] [address] Urea nitrogen/Creatinine [Mass ratio] 14.6 mg/mg Normal 10.0-20.0 [facility] Comment on above: Performed By: #### E GFR #### [address] [address] .UA Microscp Aon 02-13-2020 UA Mucus Present Abnormal Absent [facility] Comment on above: Performed By: #### C [id number] #### [address] [address] UA RBC Quant 0 /HPF Normal 0-5 [facility] Comment on above: Performed By: #### C [id number] #### [address] [address] UA WBC Quant 0 /HPF Normal 0-5 [facility] Comment on above: Performed By: #### C [id number] #### [address] [address] .eGFRon 02-13-2020 eGFR Non-AA 30 mL/min/1.73m? Low >=60 [facility] Comment on above: Order Comment: [...] dosing. Performed By: #### E GFR #### [place] [address] eGFR AA 36 mL/min/1.73m? Low >=60 [facility] Comment on above: Order Comment: Order added by Discern rule Result Comment: Resu lt = 0-14.9 mL/min/1.73 m2 Kidney failure or Dialysis Result = 15-29 mL/min/1.73 m2 Severe decrease in GFR Result = 30-59 mL/min/1.73 m2 Moderate decrease in GFR Result >= 60 mL/min/1.73 m2 Normal or increased GFR Performed By: #### E GFR #### [address] [address] CBCon 02-13-2020 Erythrocyte distribution width (RBC) [Ratio] 14.5 % Normal 11.6-14.8 [facility] Comment on above: Performed By: #### E GFR #### [address] [address] Hematocrit (Bld) [Volume fraction] 27.6 % Low 36.0-46.0 [facility] Comment on above: Performed By: #### E GFR #### [address] [address] Hemoglobin (Bld) [Mass/Vol] 9.1 g/dL Low 12.0-16.0 [facility] Comment on above: Performed By: #### E GFR #### [address] [address] MCH (RBC) [Entitic mass] 30.7 pg Normal 27.0-35.0 [facility] Comment on above: Performed By: #### E GFR #### [address] [address] MCHC (RBC) [Mass/Vol] 32.9 % Normal 31.0-37.0 [facility] Comment on above: Performed By: #### E GFR #### [address] [address] MCV (RBC) [Entitic vol] 93.2 fL Normal 80.0-100.0 [facility] Comment on above: Performed By: #### E GFR #### [address] [address] Platelet mean volume (Bld) [Entitic vol] 9.0 fL Normal 6.7-10.6 [facility] Comment on above: Performed By: #### E GFR #### [address] [address] Platelets (Bld) [#/Vol] 169 x10*3/mcL Normal 150-350 [facility] Comment on above: Performed By: #### E GFR #### [address] [address] RBC (Bld) [#/Vol] 2.96 x10*6/mcL Low 3.80-5.20 [facility] Comment on above: Performed By: #### E GFR #### [address] [address] WBC (Bld) [#/Vol] 9.8 x10*3/mcL Normal 4.5-11.0 [facility] Comment on above: Performed By: #### E GFR #### [address] [address] [employer] Progress Noteon 02-13-2020 [employer] Progress Note Second IMM letter delivered to patient. Electronically signed by Kasie Flowers 02/13/20 09:58 EDT Normal [facility] Magnesiumon 02-13-2020 Magnesium [Mass/Vol] 2.3 mg/dL Normal 1.7-2.4 [facility] Comment on above: Performed By: #### E GFR #### [address] [address] Nephrology Progress Noteon 0 02-13-2020 Nephrology Progress [...] mg, 1 mL, IV Push, q2min, PRN Troy 5 mg-325 mg oral tablet, 1 tabs, [...] Hearing loss sensory, bilateral Electronically signed by Kelly CASTRO-KENISHAStephanien 02/13/20 18:43 EDT The patient was personally [...] of her antihypertensive medications. Electronically signed by Jeevan Dilan NIELSON Juilarominalamar 02/13/20 23:09 EDT Normal [facility] Orthopedic Progress Noteon 0 02-13-2020 Orthopedic [...] acute pulmonary process. Signed By: Manolo KUMAR, Alonsomanannette Computed Tomography No qualifying data available. Ultrasound [...] Oral, q6hr, PRN acetaminophen, 1000 mg, Oral, [id number] Times ALPRAZolam, 0.25 mg, Oral, HS (at bedtime) calcitriol, 0.25 mcg, Oral, Mo/We/Fr Dulcolax Laxative, 10 mg, Oral, Daily, PRN Haldol, 2.5 mg, 0.5 mL, IM, [id number] Times, PRN hydrALAZINE, 25 mg, Oral, TID Lovenox, 30 mg, 0.3 mL, Subcutaneous, q24hr meclizine, 25 mg, Oral, TID, PRN naloxone, 0.4 mg, 1 mL, IV Push, q2min, PRN Troy 5 mg-325 mg oral tablet, 1 tabs, [...] prophylaxis, and PT. Okay to DC to long-term facility from orthopedic standpoint. Follow-up at [facility] with Dr. Jordan in 2 weeks. 3. Chronic kidney disease 4. Electrolyte abnormality 5. Renal osteodystrophy 6. Hypertension 7. Status post hip surgery 8. Laceration of head 9. Hearing loss sensory, bilateral 10. Anemia Electronically signed by Naman Edmond PA-C 02/13/20 17:38 EDT Normal [facility] Renal Panelon 02-13-2020 Albumin [Mass/Vol] 3.4 g/dL Normal 3.2-4.9 [facility] Comment on above: Result Comment: [facility] Laboratory updated the methodology used for albumin testing on 05/04/18. Albumin measurement was performed using a bromcresol purple dye-binding assay. Performed By: #### R ENAL #### [address] [address] Anion gap [Moles/Vol] 13 mmol/L Normal 7-17 [facility] Comment on above: Performed By: #### R ENAL #### [address] [address] Calcium [Mass/Vol] 8.0 mg/dL Low 8.5-10.3 [facility] Comment on above: Performed By: #### R ENAL #### [address] [address] Chloride [Moles/Vol] 105 mmol/L Normal 98-110 [facility] Comment on above: Performed By: #### R ENAL #### [address] [address] CO2 [Moles/Vol] 26 mmol/L Normal 22-32 [facility] Comment on above: Performed By: #### R ENAL #### [address] [address] Creatinine [Mass/Vol] 1.64 mg/dL High 0.44-1.03 [facility] Comment on above: Performed By: #### R ENAL #### [address] [address] Glucose [Mass/Vol] 114 mg/dL High 70-99 [facility] Comment on above: Performed By: #### R ENAL #### [address] [address] Phosphate [Mass/Vol] 2.8 mg/dL Normal 2.5-4.6 [facility] Comment on above: Performed By: #### R ENAL #### [address] [address] Potassium [Moles/Vol] 4.2 mmol/L Normal 3.4-4.8 [facility] Comment on above: Performed By: #### R ENAL #### [address] [address] Sodium [Moles/Vol] 140 mmol/L Normal 133-142 [facility] Comment on above: Performed By: #### R ENAL #### [address] [address] Urea nitrogen [Mass/Vol] 23 mg/dL Normal 8-26 [facility] Comment on above: Performed By: #### R ENAL #### [address] [address] Urea nitrogen/Creatinine [Mass ratio] 14.0 mg/mg Normal 10.0-20.0 [facility] Comment on above: Performed By: #### R ENAL #### [address] [address] UA w Culture if Indon 2019 Color (U) Yellow Normal [facility] Comment on above: Performed By: #### T IBC #### [address] [address] Glucose (U) [Mass/Vol] Negative Normal Negative [facility] Comment on above: Performed By: #### T IBC #### [address] [address] Ketones Ql (U) Negative Normal Negative [facility] Comment on above: Performed By: #### T IBC #### [address] [place] [address] UA Blood Moderate Abnormal Negative [facility] Comment on above: Performed By: #### T IBC #### [address] [address] UA Clarity Hazy Normal [facility] Comment on above: Performed By: #### T IBC #### [address] [address] UA Leukocyte Esterase Negative Normal Negative [facility] Comment on above: Performed By: #### T IBC #### [address] [place] [address] UA Nitrite Negative Normal Negative [facility] Comment on above: Performed By: #### T IBC #### [address] [address] UA pH 5.0 Normal 4.5 - 7.8 [facility] Comment on above: Performed By: #### T IBC #### [address] [address] UA Protein 30 mg/dL Abnormal Negative [facility] Comment on above: Performed By: #### T IBC #### [address] [address] UA Source Clean Catch Normal [facility] Comment on above: Performed By: #### T IBC #### [address] [address] UA Spec Grav 1.014 Normal 1.003-1.035 [facility] Comment on above: Performed By: #### T IBC #### [address] [address] UA Urobilinogen 0.2 mg/dL Normal 0.2 - 1.0 [facility] Comment on above: Performed By: #### T IBC #### [address] [address] Urobilinogen Qn (U) Negative Normal Negative [facility] Comment on above: Performed By: #### T IBC #### [address] [address] .eGFRon 02-12-2020 eGFR AA 44 mL/min/1.73m? Low >=60 [facility] Comment on above: Order Comment: Order added by Discern rule Result Comment: Resu lt = 0-14.9 mL/min/1.73 m2 Kidney failure or Dialysis Result = 15-29 mL/min/1.73 m2 Severe decrease in GFR Result = 30-59 mL/min/1.73 m2 Moderate decrease in GFR Result >= 60 mL/min/1.73 m2 Normal or increased GFR Performed By: #### E GFR #### [address] [address] eGFR Non-AA 36 mL/min/1.73m? Low >=60 [facility] Comment on above: Order Comment: [...] dosing. Performed By: #### E GFR #### [address] [address] CBCon 02-12-2020 Erythrocyte distribution width (RBC) [Ratio] 14.3 % Normal 11.6-14.8 [facility] Comment on above: Performed By: #### T IBC #### [address] [address] Hematocrit (Bld) [Volume fraction] 28.6 % Low 36.0-46.0 [facility] Comment on above: Performed By: #### T IBC #### [address] [address] Hemoglobin (Bld) [Mass/Vol] 9.4 g/dL Low 12.0-16.0 [facility] Comment on above: Performed By: #### T IBC #### [address] [address] MCH (RBC) [Entitic mass] 31.0 pg Normal 27.0-35.0 [facility] Comment on above: Performed By: #### T IBC #### [address] [address] MCHC (RBC) [Mass/Vol] 33.0 % Normal 31.0-37.0 [facility] Comment on above: Performed By: #### T IBC #### [address] [address] MCV (RBC) [Entitic vol] 93.9 fL Normal 80.0-100.0 [facility] Comment on above: Performed By: #### T IBC #### [address] [address] Platelet mean volume (Bld) [Entitic vol] 8.7 fL Normal 6.7-10.6 [facility] Comment on above: Performed By: #### T IBC #### [address] [address] Platelets (Bld) [#/Vol] 136 x10*3/mcL Low 150-350 [facility] Comment on above: Performed By: #### T IBC #### [address] [address] RBC (Bld) [#/Vol] 3.05 x10*6/mcL Low 3.80-5.20 [facility] Comment on above: Performed By: #### T IBC #### [address] [address] WBC (Bld) [#/Vol] 11.4 x10*3/mcL High 4.5-11.0 [facility] Comment on above: Performed By: #### T IBC #### [address] [address] Magnesiumon 02-12-2020 Magnesium [Mass/Vol] 2.5 mg/dL High 1.7-2.4 [facility] Comment on above: Performed By: #### M G #### [address] [address] Nephrology Progress Noteon 0 02-12-2020 Nephrology Progress [...] mg, 1 mL, IV Push, q2min, PRN Troy 5 mg-325 mg oral tablet, 1 tabs, [...] insurance for rehab Electronically signed by Beti MOTLEYKenyatta Jaquelin 02/12/20 13:14 EDT The patient was personally evaluated by myself and the case was discussed with Stephanie Marrufo CNP. I agree with the above noted assessment and plans. Improved admission CKD, baseline stage IV. Presently with some delirium that is possibly from an infectious process, or stress from patient's current clinical incident with her left intertrochanteric fracture Electronically signed by Jeevan Dilan NIELSON Jomar 02/12/20 21:34 EDT Normal [facility] Orthopedic Progress Noteon 0 02-12-2020 Orthopedic [...] mg, 1 mL, IV Push, q2min, PRN Troy 5 mg-325 mg oral tablet, 1 tabs, [...] Naman Edmond PA-C 02/12/20 11:16 EDT Normal [facility] PTH-INTon 02-12-2020 PTH Intact 94 pg/mL High 12-88 [facility] Comment on above: Performed By: #### P HOS #### [address] [address] Procalcitonin Levelon 2019 Procalcitonin Lvl 0.54 ng/mL High <=0.49 [facility] Comment on above: Result Comment: [...] hours. Performed By: #### E GFR #### [address] [address] Progress Note - [employer] Progress Note - [...] laterality on these images. Signed By: Sterling Agiullon MD Computed Tomography No qualifying data available. [...] mg, 1 mL, IV Push, q2min, PRN Troy 5 mg-325 mg oral tablet, 1 tabs, [...] Dose: 02/12/20 21:00:00 EDT, Dispense From Location: [employer] EKG Indwelling Urinary Catheter Discontinue Sitter at [...] by Kenyatta Pena 02/12/20 10:03 EDT Normal [facility] Progress Note-Nurseon 2019 Progress Note-Nurse Attempted to administer morning meds and new meds that were ordered by nephrology. Patient is currently confused and combative, and refusing all patient care. Electronically signed by Mery De La Rosa 02/12/20 13:24 EDT Normal [facility] Renal Panelon 02-12-2020 Albumin [Mass/Vol] 3.6 g/dL Normal 3.2-4.9 [facility] Comment on above: Result Comment: [facility] Laboratory updated the methodology used for albumin testing on 05/04/18. Albumin measurement was performed using a bromcresol purple dye-binding assay. Performed By: #### P HOS #### [facility] [address] [place] [address] Anion gap [Moles/Vol] 14 mmol/L Normal 7-17 [facility] Comment on above: Performed By: #### P HOS #### [facility] [address] [place] [address] Calcium [Mass/Vol] 8.1 mg/dL Low 8.5-10.3 [facility] Comment on above: Performed By: #### P HOS #### [address] [place] [address] Chloride [Moles/Vol] 98 mmol/L Normal 98-110 [facility] Comment on above: Performed By: #### P HOS #### [address] [place] [address] CO2 [Moles/Vol] 26 mmol/L Normal 22-32 [facility] Comment on above: Performed By: #### P HOS #### [address] [place] [address] Creatinine [Mass/Vol] 1.39 mg/dL High 0.44-1.03 [facility] Comment on above: Performed By: #### P HOS #### [address] [address] Glucose [Mass/Vol] 134 mg/dL High 70-99 [facility] Comment on above: Performed By: #### P HOS #### [address] [address] Phosphate [Mass/Vol] 2.6 mg/dL Normal 2.5-4.6 [facility] Comment on above: Performed By: #### P HOS #### [address] [address] Potassium [Moles/Vol] 3.8 mmol/L Normal 3.4-4.8 [facility] Comment on above: Performed By: #### P HOS #### [address] [place] [address] Sodium [Moles/Vol] 134 mmol/L Normal 133-142 [facility] Comment on above: Performed By: #### P HOS #### [address] [address] Urea nitrogen [Mass/Vol] 21 mg/dL Normal 8-26 [facility] Comment on above: Performed By: #### P HOS #### [address] [address] Urea nitrogen/Creatinine [Mass ratio] 15.1 mg/mg Normal 10.0-20.0 [facility] Comment on above: Performed By: #### P HOS #### [address] [address] XR Chest 1 Viewon 02-12-2020 XR Chest [...] Electronically Signed in Other Vendor System) Normal [facility] .eGFRon 02-11-2020 eGFR Non-AA 33 mL/min/1.73m? Low >=60 [facility] Comment on above: Order Comment: [...] dosing. Performed By: #### F OL #### [address] [address] eGFR AA 40 mL/min/1.73m? Low >=60 [facility] Comment on above: Order Comment: Order added by Discern rule Result Comment: Resu lt = 0-14.9 mL/min/1.73 m2 Kidney failure or Dialysis Result = 15-29 mL/min/1.73 m2 Severe decrease in GFR Result = 30-59 mL/min/1.73 m2 Moderate decrease in GFR Result >= 60 mL/min/1.73 m2 Normal or increased GFR Performed By: #### F OL #### [address] [address] B12on 02-11-2020 Cobalamin (Vitamin B12) [Mass/Vol] 135 pg/mL Low 180-914 [facility] Comment on above: Order Comment: ok to add on to am labs per [place]02/11/2020 12:08:01 EDT cbowman Performed By: #### T IBC #### [address] [address] CBCon 02-11-2020 Erythrocyte distribution width (RBC) [Ratio] 14.2 % Normal 11.6-14.8 [facility] Comment on above: Performed By: #### P HOS #### [address] [address] Hematocrit (Bld) [Volume fraction] 32.5 % Low 36.0-46.0 [facility] Comment on above: Performed By: #### P HOS #### [address] [address] Hemoglobin (Bld) [Mass/Vol] 10.6 g/dL Low 12.0-16.0 [facility] Comment on above: Performed By: #### P HOS #### [address] [address] MCH (RBC) [Entitic mass] 30.9 pg Normal 27.0-35.0 [facility] Comment on above: Performed By: #### P HOS #### [address] [address] MCHC (RBC) [Mass/Vol] 32.6 % Normal 31.0-37.0 [facility] Comment on above: Performed By: #### P HOS #### [address] [address] MCV (RBC) [Entitic vol] 94.6 fL Normal 80.0-100.0 B [facility] Comment on above: Performed By: #### P HOS #### [address] [address] Platelet mean volume (Bld) [Entitic vol] 8.5 fL Normal 6.7-10.6 [facility] Comment on above: Performed By: #### P HOS #### [address] [address] Platelets (Bld) [#/Vol] 156 x10*3/mcL Normal 150-350 [facility] Comment on above: Performed By: #### P HOS #### [address] [address] RBC (Bld) [#/Vol] 3.44 x10*6/mcL Low 3.80-5.20 [facility] Comment on above: Performed By: #### P HOS #### [address] [address] WBC (Bld) [#/Vol] 11.3 x10*3/mcL High 4.5-11.0 [facility] Comment on above: Performed By: #### P HOS #### [address] [address] Ferritinon 02-11-2020 Ferritin [Mass/Vol] 75.8 ng/mL Normal 11.0-306.8 [facility] Comment on above: Performed By: #### T IBC #### [address] [address] Folate Lvlon 02-11-2020 Folate Lvl 4.0 ng/mL Low >=5.9 [facility] Comment on above: Result Comment: A [facility] Technical Consultation has determined that deficient Folate concentrations are considered to be less than 4 ng/mL. Performed By: #### F OL #### [address] [address] Magnesiumon 02-11-2020 Magnesium [Mass/Vol] 1.6 mg/dL Low 1.7-2.4 [facility] Comment on above: Performed By: #### E GFR #### [facility] [address] [place] [address] Nephrology Progress Noteon 0 02-11-2020 Nephrology Progress [...] mg, 1 mL, IV Push, q2min, PRN Troy 5 mg-325 mg oral tablet, 1 tabs, [...] Dose: 02/11/20 14:00:00 EDT, [facility] by Dilan Chew DO Uwariomilamar 02/11/20 20:26 EDT Normal [facility] Orthopedic Progress Noteon 0 02-11-2020 Orthopedic [...] Date: 02/11/20 13:56:00 EDT, Dispense From Location: [facility], Prophylaxis- Pre/Post-Op enoxaparin, 30 mg, Subcutaneous, Injection, q24hr, First Dose: 02/11/20 13:00:00 EDT, Dispense From Location: [id number] hydrocodone-acetaminop hen, 1 tabs, Oral, Tab, q4hr, PRN moderate pain [4-6 on pain scale], First Dose: 02/10/20 13:57:00 EDT, Dispense From Location: [facility]SHX[facility]2C sodium chloride, 10 mL, IV Push, Injection, As Indicated, PRN flush, First Dose: 02/10/20 14:05:00 EDT, Dispense From Location: [id number] Basic Metabolic Profile Below the Knee Graduated [...] Chele Jordan MD 02/11/20 09:11 EDT Normal [facility] Progress Note - [employer] Progress Note [...] mg, 1 mL, IV Push, q2min, PRN Troy 5 mg-325 mg oral tablet, 1 tabs, [...] by Sneha Martell 02/11/20 17:37 EDT Normal [facility] Renal Panelon 02-11-2020 Albumin [Mass/Vol] 2.9 g/dL Low 3.2-4.9 [facility] Comment on above: Result Comment: [facility] Laboratory updated the methodology used for albumin testing on 05/04/18. Albumin measurement was performed using a bromcresol purple dye-binding assay. Performed By: #### F OL #### [facility] [address] [place] [address] Anion gap [Moles/Vol] 12 mmol/L Normal - [facility] Comment on above: Performed By: #### F OL #### [address] [address] Calcium [Mass/Vol] 8.0 mg/dL Low 8.5-10.3 [facility] Comment on above: Performed By: #### F OL #### [address] [address] Chloride [Moles/Vol] 99 mmol/L Normal 98-110 [facility] Comment on above: Performed By: #### F OL #### [address] [address] CO2 [Moles/Vol] 25 mmol/L Normal 22-32 [facility] Comment on above: Performed By: #### F OL #### [address] [address] Creatinine [Mass/Vol] 1.51 mg/dL High 0.44-1.03 [facility] Comment on above: Performed By: #### F OL #### [address] [address] Glucose [Mass/Vol] 193 mg/dL High 70-99 [facility] Comment on above: Performed By: #### F OL #### [address] [address] Phosphate [Mass/Vol] 2.2 mg/dL Low 2.5-4.6 [facility] Comment on above: Performed By: #### F OL #### [address] [place] [address] Potassium [Moles/Vol] 4.0 mmol/L Normal 3.4-4.8 [facility] Comment on above: Performed By: #### F OL #### [address] [address] Sodium [Moles/Vol] 132 mmol/L Low 133-142 [facility] Comment on above: Performed By: #### F OL #### [address] [address] Urea nitrogen [Mass/Vol] 29 mg/dL High 8-26 [facility] Comment on above: Performed By: #### F OL #### [address] [address] Urea nitrogen/Creatinine [Mass ratio] 19.2 mg/mg Normal 10.0-20.0 [facility] Comment on above: Performed By: #### F OL #### [address] [address] TIBCon 02-11-2020 Iron [Mass/Vol] 22 ug/dL Low 28-170 [facility] Comment on above: Performed By: #### T IBC #### [address] [address] Iron Sat 7.6 % Low >=16.0 [facility] Comment on above: Performed By: #### T IBC #### [address] [address] TIBC 288 mcg/dL Normal 261-478 [facility] Comment on above: Performed By: #### T IBC #### [address] [address] Transferrin [Mass/Vol] 193 mg/dL Normal 192-382 [facility] Comment on above: Performed By: #### T IBC #### [address] [address] XR Femur 2 or More Views Lef [...] Electronically Signed in Other Vendor System) Normal [facility] .eGFRon 02-10-2020 eGFR Non-AA 26 mL/min/1.73m? Low >=60 [facility] Comment on above: Result Comment: [...] dosing. Performed By: #### T IBC #### [place] [address] eGFR AA 31 mL/min/1.73m? Low >=60 [facility] Comment on above: Result Comment: Resu lt = 0-14.9 mL/min/1.73 m2 Kidney failure or Dialysis Result = 15-29 mL/min/1.73 m2 Severe decrease in GFR Result = 30-59 mL/min/1.73 m2 Moderate decrease in GFR Result >= 60 mL/min/1.73 m2 Normal or increased GFR Performed By: #### T IBC #### [place] [id number] CBC w/ Diffon 02-10-2020 Erythrocyte distribution width (RBC) [Ratio] 14.8 % Normal 11.6-14.8 [facility] Comment on above: Performed By: #### P HOS #### [place] [id number] Hematocrit (Bld) [Volume fraction] 38.8 % Normal 36.0-46.0 [facility] Comment on above: Performed By: #### P HOS #### [place] [id number] Hemoglobin (Bld) [Mass/Vol] 12.4 g/dL Normal 12.0-16.0 [facility] Comment on above: Performed By: #### P HOS #### [address] [address] MCH (RBC) [Entitic mass] 30.0 pg Normal 27.0-35.0 [facility] Comment on above: Performed By: #### P HOS #### [address] [address] MCHC (RBC) [Mass/Vol] 32.1 % Normal 31.0-37.0 [facility] Comment on above: Performed By: #### P HOS #### [address] [address] MCV (RBC) [Entitic vol] 93.5 fL Normal 80.0-100.0 [facility] Comment on above: Performed By: #### P HOS #### [address] [address] Platelet mean volume (Bld) [Entitic vol] 8.2 fL Normal 6.7-10.6 [facility] Comment on above: Performed By: #### P HOS #### [address] [address] Platelets (Bld) [#/Vol] 198 x10*3/mcL Normal 150-350 [facility] Comment on above: Performed By: #### P HOS #### [address] [address] RBC (Bld) [#/Vol] 4.15 x10*6/mcL Normal 3.80-5.20 [facility] Comment on above: Performed By: #### P HOS #### [address] [address] WBC (Bld) [#/Vol] 11.1 x10*3/mcL High 4.5-11.0 [facility] Comment on above: Performed By: #### P HOS #### [address] [address] [facility] 02-10-2020 Albumin [Mass/Vol] 3.7 g/dL Normal 3.2-4.9 [facility] Comment on above: Result Comment: [facility] Laboratory updated the methodology used for albumin testing on 05/04/18. Albumin measurement was performed using a bromcresol purple dye-binding assay. Performed By: #### T IBC #### [address] [address] Albumin/Globulin [Mass ratio] 1.3 {ratio} Normal 1.1-2.2 [facility] Comment on above: Performed By: #### T IBC #### [address] [address] Alk Phos 89 IU/L Normal 32-91 [facility] Comment on above: Performed By: #### T IBC #### [address] [address] ALT [Catalytic activity/Vol] 20 U/L Normal 14-54 [facility] Comment on above: Performed By: #### T IBC #### [address] [address] Anion gap [Moles/Vol] 17 mmol/L Normal 7-17 [facility] Comment on above: Performed By: #### T IBC #### [address] [address] AST [Catalytic activity/Vol] 21 U/L Normal 15-41 [facility] Comment on above: Performed By: #### T IBC #### [address] [address] Bili Total 0.9 mg/dL Normal 0.3-1.2 [facility] Comment on above: Performed By: #### T IBC #### [address] [address] Calcium [Mass/Vol] 8.8 mg/dL Normal 8.5-10.3 [facility] Comment on above: Performed By: #### T IBC #### [address] [address] Chloride [Moles/Vol] 102 mmol/L Normal 98-110 [facility] Comment on above: Performed By: #### T IBC #### [address] [address] CO2 [Moles/Vol] 24 mmol/L Normal 22-32 [facility] Comment on above: Performed By: #### T IBC #### [address] [address] Creatinine [Mass/Vol] 1.87 mg/dL High 0.44-1.03 [facility] Comment on above: Performed By: #### T IBC #### [address] [address] Glucose [Mass/Vol] 111 mg/dL High 70-99 [facility] Comment on above: Performed By: #### T IBC #### [address] [address] Potassium [Moles/Vol] 5.2 mmol/L High 3.4-4.8 [facility] Comment on above: Performed By: #### T IBC #### [address] [address] Protein [Mass/Vol] 6.6 g/dL Normal 6.5-8.1 [facility] Comment on above: Performed By: #### T IBC #### [address] [address] Sodium [Moles/Vol] 138 mmol/L Normal 133-142 [facility] Comment on above: Performed By: #### T IBC #### [address] [address] Urea nitrogen [Mass/Vol] 41 mg/dL High 8-26 [facility] Comment on above: Performed By: #### T IBC #### [address] [address] Urea nitrogen/Creatinine [Mass ratio] 21.9 mg/mg High 10.0-20.0 [facility] Comment on above: Performed By: #### T IBC #### [address] [address] Diff Autoon 02-10-2020 Baso Absolute 0.0 x10*3/mcL Normal 0.0-0.2 [facility] Comment on above: Performed By: #### T IBC #### [address] [address] Basophils/100 WBC (Bld) 0.2 % Normal 0.0-1.5 B [facility] Comment on above: Performed By: #### T IBC #### [address] [address] Eos Absolute 0.0 x10*3/mcL Normal 0.0-0.4 [facility] Comment on above: Performed By: #### T IBC #### [address] [address] Eosinophils/100 WBC (Bld) 0.0 % Normal 0.0-5.4 [facility] Comment on above: Performed By: #### T IBC #### [address] [address] Lymphocytes (Bld) [#/Vol] 1.2 x10*3/mcL Normal 1.0-4.8 [facility] Comment on above: Performed By: #### T IBC #### [address] [address] Lymphocytes/100 WBC (Bld) 10.7 % Low 27.2-40.8 [facility] Comment on above: Performed By: #### T IBC #### [address] [address] [place] Absolute 1.2 x10*3/mcL High 0.1-1.1 [facility] Comment on above: Performed By: #### T IBC #### [address] [address] Monocytes/100 WBC (Bld) 10.7 % Normal 3.7-11.9 B [facility] Comment on above: Performed By: #### T IBC #### [address] [address] Neutro Absolute 8.7 x10*3/mcL High 1.8-7.7 [facility] Comment on above: Performed By: #### T IBC #### [address] [address] Neutro Auto 78.4 % High 47.2-70.8 [facility] Comment on above: Performed By: #### T IBC #### [address] [address] Magnesiumon 02-10-2020 Magnesium [Mass/Vol] 2.0 mg/dL Normal 1.7-2.4 [facility] Comment on above: Performed By: #### M G #### [address] [address] Nephrology Consultationon Nephrology Consultation Reason for Consultation [...] activation of EMS. Patient was taken to [facility] ER where she had some scans performed and was found to she had sustained a left intertrochanteric fracture. She was subsequently transferred to [facility] where she has been seen by Dr. [...] mg, 1 mL, IV Push, q2min, PRN Troy 5 mg-325 mg oral tablet, 1 tabs, [...] Dilan Chew DO 02/10/20 23:31 EDT Normal [facility] Operative Reporton 0 Operative Report Indication for Surge ry Patient is an 84-year-old with a left hip fracture. Treatment options were discussed with her as well as risks and benefits and she elected to proceed with surgery. Preoperative Diagnosis Left hip intertrochanteric fracture Postoperative Diagnosis Left hip intertrochanteric fracture Operation Left hip intramedullary nail Surgeon(s) Nikki Sand Mixer Operator None Anesthesia Spinal Estimated Blood Loss 75 [...] Chele Jordan MD 02/10/20 13:55 EDT Normal [facility] Orthopedic Consultationon Orthopedic Consultation Reason for Consultation Left hip fracture History of Present Illness Patient was walking yesterday when she lost her balance and fell on to her left hip with pain and inability to bear weight. She presented to [facility] ER where xrays revealed a left hip fracture. Patient was transferred to [facility] for treatment of this injury. [...] Chele Jordan MD 02/10/20 12:20 EDT Normal [facility] Pharmacy Progress Noteon Pharmacy Progress Note [...] by Karen Uriarte 02/10/20 18:35 EDT Normal [facility] Phosphoruson 02-10-2020 Phosphate [Mass/Vol] 3.8 mg/dL Normal 2.5-4.6 [facility] Comment on above: Performed By: #### P HOS #### [facility] [address] [place] [address] Progress Note - [employer] Progress Note - [...] mg, 1 mL, IV Push, q2min, PRN Troy 5 mg-325 mg oral tablet, 1 tabs, [...] she is not - Reported creatinine at [facility] was 2.42, creatinine significantly improved today at [...] by Sneha Martell 02/10/20 16:09 EDT [facility] Coag (Bld) [Time] 27.1 [place] CBC Auto Differentialon 01-25 Basophils (Bld) [#/Vol] 10*3/uL [place] Basophils/100 WBC (Bld) 0 % 0 - 2 % [place] Differential Type NOT REPORTED [place] Eosinophils (Bld) [#/Vol] 0.10 10*3/uL [place] Eosinophils/100 WBC (Bld) 1 % 1 - 4 % [place] Erythrocyte distribution width (RBC) [Ratio] 14.0 % 11.8 - 14.4 % [place] Hematocrit (Bld) [Volume fraction] 41.9 % 36.3 - 47.1 % [place] Hemoglobin (Bld) [Mass/Vol] 13.0 g/dL 11.9 - 15.1 g/dL [place] Immature granulocytes (Bld) [#/Vol] 0 % 0 [place] Immature granulocytes (Bld) [#/Vol] 10*3/uL [place] Lymphocytes (Bld) [#/Vol] 2.13 10*3/uL [place] Lymphocytes/100 WBC (Bld) 26 % 24 - 43 % [place] MCH (RBC) [Entitic mass] 30.1 pg 25. 2 - 33.5 pg [place] MCHC (RBC) [Mass/Vol] 31.0 g/dL 28.4 - 34.8 g/dL [place] MCV (RBC) [Entitic vol] 97.0 fL 82.6 - 102.9 fL [place] Monocytes (Bld) [#/Vol] 0.78 10*3/uL [place] Monocytes/100 WBC (Bld) 10 % 3 - 12 % [place] Platelet mean volume (Bld) [Entitic vol] 10.7 fL 8.1 - 13.5 fL [place] Platelets (Bld) [#/Vol] NOT REPORTED [place] Platelets (Bld) [#/Vol] 197 10*3/uL [place] RBC (Bld) [#/Vol] 4.32 10*6/uL 3.95 - 5.1 1 m/uL [place] RBC morphology finding Nom (Bld) NOT REPORTED [place] Segmented neutrophils/100 WBC (Bld) 63 % 36 - 65 % [place] Segs Absolute 5.15 [place] WBC (Bld) [#/Vol] 0.0 10*3/uL 0.0 per 10 0 WBC [place] WBC (Bld) [#/Vol] 8.2 10*3/uL [place] WBC Morphology NOT REPORTED [place] CERVICAL SPINE WO VALERIO Ton 02-09-2020 [place], [facility] Incoming Radiant Results From [employer] - 02/09/2020 12:08 PM EDT EXAMINATION: CT [...] with left bony foraminal narrowing at C5-6. [place] EXAMINATION: CT OF T HE CERVICAL [...] The lung apices are without acute process. [place] No acute fracture or malalignment of the cervical spine. Multilevel degenerative disc disease with associated uncovertebral and facet hypertrophy with left bony foraminal narrowing at C5-6. [place] CT Head WO Contraston 2019 [place], [facility] Incoming Radiant Results From [employer] - 02/09/2020 11:56 AM EDT EXAMINATION: CT [...] acute CT abnormality identified in the brain. [place] EXAMINATION: CT OF T HE HEAD [...] left posterosuperior scalp injury. No underlying fracture. [place] Left posterosuperior scalp injury without underlying fracture. No acute CT abnormality identified in the brain. [place] Comprehensive Metabolic Pane l w/ Reflex to MGon 02-09-2020 Albumin [Mass/Vol] 4.2 g/dL 3.5 - 5.2 g/dL [place] Albumin/Globulin [Mass ratio] 1.6 {ratio} [place] ALP [Catalytic activity/Vol] 97 U/L 35 - 104 U/L [place] ALT [Catalytic activity/Vol] 16 U/L 5 - 33 U/L [place] Anion gap [Moles/Vol] 16 mmol/L 9 - 17 mmol/L [place] AST [Catalytic activity/Vol] 19 U/L <32 [place] Bilirubin Ql (U) 0.38 mg/dL 0.3 - 1.2 mg/dL [place] Bun/Cre Ratio 18 [place] Calcium [Mass/Vol] 9.3 mg/dL 8.6 - 10. 4 mg/dL [place] Chloride [Moles/Vol] 102 mmol/L 98 - 10 7 mmol/L [place] CO2 [Moles/Vol] 23 mmol/L 20 - 31 mmol/L [place] Creatinine [Mass/Vol] 2.42 mg/dL High 0.5 - 0.9 mg/dL [place] GFR 23 mL/min Low >60 [place] GFR Non- 19 mL/min Low >60 [place] Glucose [Mass/Vol] 132 mg/dL High 70 - 99 mg/dL [place] Interpretation and review of laboratory results Abnormal [place] Potassium [Moles/Vol] 4.5 mmol/L 3.7 - 5.3 mmol/L [place] Protein [Mass/Vol] 6.8 g/dL 6.4 - 8.3 g/dL [place] Sodium [Moles/Vol] 141 mmol/L 135 - 144 mmol/L [place] Urea nitrogen [Mass/Vol] 43 mg/dL High 8 - 23 mg/dL [place] History and Physicalon 02-08 History and [...] and oriented, well nourished, no acute distress. [place] Eye: PERRL, EOMI, normal conjunctiva. HENT: Normocephalic, [...] every 4 hours as needed for nausea. construction services technician consult for discharge planning. 2. Fall See #1. 3. Laceration of head Scabbed. 4. Hypertension Continue hydrochlorothiazide and verapamil. 5. ESRD on dialysis Creatine in [place] was 2.42 Consult nephrology in the morning. 6. Hyperlipidemia Continue pravastatin. Medical Necessity for the hospitilization: Left intertrochanteric hip Fracture Complication Risk: Debility and . Activity at baseline: Independent Anticipated Discharge Location: senior living facility Anticipated Discharge Date: Likely greater than [...] by Anshul Jack 02/09/20 18:20 EDT Normal [facility] Metabolic Panelon 02-09-2020 GFR/1.73 sq M predicted among non-blacks MDRD (S/P/Bld) [Vol rate/Area] [facility] [place], [place] Comment on above: Average GFR for 70 o r more years old: 75 mL/min/1.73sq m Chronic Kidney Disease: <60 mL/min/1.73sq m Kidney failure: <15 mL/min/1.73sq m eGFR calculated using average adult body mass. Additional eGFR calculator available at: http://www.[employer].Appconomy/multiple_crcl_2012.htm Stage 1: Some kidney damage normal GFR [...] by Fer Bautista 02/09/20 22:53 EDT Normal [facility] Protime-INRon 02-09-2020 INR Coag (PPP) [Relative time] 1.0 {INR} [facility] Coag (PPP) [Time] 10.7 s [facility] IASHREYA XR CHEST PORTABLEon 02-09-20 20 [place], [facility] Incoming Radiant Results From [facility] - 02/09/2020 11:50 AM EDT EXAMINATION: ONE XRAY VIEW OF THE CHEST 02/09/2020 11:43 am COMPARISON: 09/27/2017 HISTORY: ORDERING SYSTEM PROVIDED HISTORY: for admission TECHNOLOGIST PROVIDED HISTORY: for admission FINDINGS: The lungs are without acute focal process. There is no effusion or pneumothorax. The cardiomediastinal silhouette is stable. The osseous structures are stable. IMPRESSION: No acute process. [facility] No acute process. [place] EXAMINATION: ONE XRA Y VIEW OF THE CHEST 02/09/2020 11:43 am COMPARISON: 09/27/2017 HISTORY: ORDERING SYSTEM PROVIDED HISTORY: for admission TECHNOLOGIST PROVIDED HISTORY: for admission FINDINGS: The lungs are without acute focal process. There is no effusion or pneumothorax. The cardiomediastinal silhouette is stable. The osseous structures are stable. [facility] XR HIP 2-3 VW W PELVIS LEFTo n 02-09-2020 Intertrochanteric le ft hip fracture. [place], [facility] Incoming Radiant Results From [employer] - 02/09/2020 3:31 PM EDT EXAMINATION: ONE [...] vascular calcifications. IMPRESSION: Intertrochanteric left hip fracture. [place] EXAMINATION: ONE XRA Y VIEW OF [...] within the acetabulum. There are vascular calcifications. [place] CBCon 02-02-2020 Erythrocyte distribution width (RBC) [Ratio] 14.1 % 11.8 - 14.4 % [place] Hematocrit (Bld) [Volume fraction] 44.3 % 36.3 - 47.1 % [place] Hemoglobin (Bld) [Mass/Vol] 13.4 g/dL 11.9 - 15.1 g/dL [place] MCH (RBC) [Entitic mass] 30.2 pg 25. 2 - 33.5 pg [place] MCHC (RBC) [Mass/Vol] 30.2 g/dL 28.4 - 34.8 g/dL [place] MCV (RBC) [Entitic vol] 100.0 fL 82.6 - 102.9 fL [place] Platelet mean volume (Bld) [Entitic vol] 10.6 fL 8.1 - 13.5 fL [place] Platelets (Bld) [#/Vol] 231 10*3/uL [place] RBC (Bld) [#/Vol] 4.43 10*6/uL 3.95 - 5.1 1 m/uL [place] WBC (Bld) [#/Vol] 8.8 10*3/uL [place] WBC (Bld) [#/Vol] 0.0 10*3/uL 0.0 per 10 0 WBC [place] Creatinine, Random Urineon 0 02-02-2020 Creatinine, Ur 148.3 mg/dL 28 - 217 mg/dL [place] Magnesiumon 02-02-2020 Magnesium [Mass/Vol] 2.0 mg/dL 1.6 - 2 .6 mg/dL [place] Metabolic Panelon 02-02-2020 GFR/1.73 sq M predicted among non-blacks MDRD (S/P/Bld) [Vol rate/Area] [place] Comment on above: Stage 1: Some [...] body mass. Additional eGFR calculator available at: http://www.[employer].Appconomy/multiple_crcl_2012.htm PTH, Int[place]on 02-02-2020 Interpretation and review of laboratory results Abnormal [place] Pth Intact 103.6 pg/mL High 15 - 65 pg/mL [place] Comment on above: SAMPLES FROM PATIENT S ROUTINELY RECEIVING HIGH DOSE BIOTIN THERAPY MAY SHOW FALSELY DEPRESSED RESULTS. ADDITIONAL INFORMATION MAY BE REQUIRED FOR DIAGNOSIS. Protein, urine, randomon Protein (U) [Mass/Vol] 21 mg/dL [place] Comment on above: No normal range esta blished. Renal Function Panelon 02-01 Albumin [Mass/Vol] 4.6 g/dL 3.5 - 5.2 g/dL [place] Anion gap [Moles/Vol] 15 mmol/L 9 - 17 mmol/L [place] Bun/Cre Ratio 17 [place] Calcium [Mass/Vol] 9.9 mg/dL 8.6 - 10. 4 mg/dL [place] Chloride [Moles/Vol] 102 mmol/L 98 - 10 7 mmol/L [place] CO2 [Moles/Vol] 23 mmol/L 20 - 31 mmol/L [place] Creatinine [Mass/Vol] 1.69 mg/dL High 0.5 - 0.9 mg/dL [place] GFR 35 mL/min Low >60 [place] GFR Non- 29 mL/min Low >60 [place] Glucose [Mass/Vol] 120 mg/dL High 70 - 99 mg/dL [place] Interpretation and review of laboratory results Abnormal [place] Phosphate [Mass/Vol] 2.7 mg/dL 2.6 - 4 .5 mg/dL [place] Potassium [Moles/Vol] 4.0 mmol/L 3.7 - 5.3 mmol/L [place] Sodium [Moles/Vol] 140 mmol/L 135 - 144 mmol/L [place] Urea nitrogen [Mass/Vol] 28 mg/dL High 8 - 23 mg/dL [place] Uric Acidon 02-02-2020 Urate [Mass/Vol] 5.5 mg/dL 2.4 - 5.7 mg/dL [place] Urinalysis with Microscopico n 02-02-2020 Amorphous, UA NOT REPORTED None [place] Bacteria, UA 3+ Abnormal None [place] Bilirubin Urine Negative NEGATIVE [place] Casts UA NOT REPORTED /LPF [place] Color, UA YELLOW YELLOW [place] Crystals, UA NOT REPORTED None /HPF [place] Epithelial Cells UA 10 TO 20 [place] Glucose, Ur Negative NEGATIVE [place] Interpretation and review of laboratory results Abnormal [place] Ketones Ql (U) Negative NEGATIVE [place] Leukocyte esterase Test strip Ql (U) Negative NEGATIVE [place] Mucus, UA NOT REPORTED None [place] Nitrite, Urine Positive Abnormal NEGATIVE [place] Other Observations UA NOT REPORTED NOT REQ. [place] pH, UA 5.5 [place] Protein (U) [Mass/Vol] Negative NEGATIVE [place] RBC (U) [#/Vol] None [place] Renal Epithelial, UA NOT REPORTED 0 /HPF [place] Specific [place], UA 1.020 [place], [place] Trichomonas, UA NOT REPORTED None [place] Turbidity UA CLEAR CLEAR [place] Urinalysis Comments NOT REPORTED [place] Urine Hgb Negative NEGATIVE [place] Urobilinogen, Urine Normal Normal [place] WBC, UA 2 TO 5 [place] Yeast, UA NOT REPORTED None [place] CBCon 10-30-2019 Erythrocyte distribution width (RBC) [Ratio] 12.9 % 11.8 - 14.4 % [facility] [employer] Phone: Hematocrit (Bld) [Volume fraction] 42.8 % 36.3 - 47.1 % [facility] [employer] Phone: Hemoglobin (Bld) [Mass/Vol] 12.9 g/dL 11.9 - 15.1 g/dL [facility] [employer] Phone: MCH (RBC) [Entitic mass] 30.8 pg 25. 2 - 33.5 pg [facility] Phone: MCHC (RBC) [Mass/Vol] 30.1 g/dL 28.4 - 34.8 g/dL [facility] Phone: MCV (RBC) [Entitic vol] 102.1 fL 82.6 - 102.9 fL [employer] Phone: Platelet mean volume (Bld) [Entitic vol] 11.0 fL 8.1 - 13.5 fL [employer] Phone: Platelets (Bld) [#/Vol] 210 10*3/uL [employer] Phone: RBC (Bld) [#/Vol] 4.19 10*6/uL 3.95 - 5.1 1 m/uL [employer] Phone: WBC (Bld) [#/Vol] 7.9 10*3/uL [employer] Phone: WBC (Bld) [#/Vol] 0.0 10*3/uL 0.0 per 10 0 WBC [employer] Phone: Creatinine, Random Urineon 0 10-30-2019 Creatinine, Ur 173.2 mg/dL 28 - 217 mg/dL [employer] Phone: Magnesiumon 10-30-2019 Magnesium [Mass/Vol] 2.2 mg/dL 1.6 - 2 .6 mg/dL [employer] Phone: Metabolic Panelon 10-30-2019 GFR/1.73 sq M predicted among non-blacks MDRD (S/P/Bld) [Vol rate/Area] [employer] Phone: Comment on above: Average GFR for 70 o r more years old: 75 mL/min/1.73sq m Chronic Kidney Disease: <60 mL/min/1.73sq m Kidney failure: <15 mL/min/1.73sq m eGFR calculated using average adult body mass. Additional eGFR calculator available at: http://www.Usermind/multiple_crcl_2012.htm Stage 1: Some kidney damage normal GFR Stage 2: Mild kidney damage GFR 60-89 Stage 3: Moderate kidney damage GFR 30-59 Stage 4: Severe kidney damage GFR 15-29 Stage 5: Severe kidney damage GFR <15 ESRD - chronic treatment by dialysis or transplant PTH, [place] 10-30-2019 Interpretation and review of laboratory results Abnormal [employer] Phone: Pth Intact 121.6 pg/mL High 15 - 65 pg/mL [employer] Phone: Comment on above: SAMPLES FROM PATIENT S ROUTINELY RECEIVING HIGH DOSE BIOTIN THERAPY MAY SHOW FALSELY DEPRESSED RESULTS. ADDITIONAL INFORMATION MAY BE REQUIRED FOR DIAGNOSIS. Protein, urine, randomon Protein (U) [Mass/Vol] 22 mg/dL [facility] Phone: Comment on above: No normal range esta blished. Renal Function Panelon 10-30 Albumin [Mass/Vol] 4.4 g/dL 3.5 - 5.2 g/dL [employer] Phone: Anion gap [Moles/Vol] 13 mmol/L 9 - 17 mmol/L [employer] Phone: Bun/Cre Ratio 17 [employer] Phone: Calcium [Mass/Vol] 9.6 mg/dL 8.6 - 10. 4 mg/dL [employer] Phone: Chloride [Moles/Vol] 105 mmol/L 98 - 10 7 mmol/L [employer] Phone: CO2 [Moles/Vol] 25 mmol/L 20 - 31 mmol/L [employer] Phone: Creatinine [Mass/Vol] 1.72 mg/dL High 0.5 - 0.9 mg/dL [employer] Phone: GFR 34 mL/min Low >60 [employer] Phone: GFR Non- 28 mL/min Low >60 [employer] Phone: Glucose [Mass/Vol] 122 mg/dL High 70 - 99 mg/dL [employer] Phone: Interpretation and review of laboratory results Abnormal [employer] Phone: Phosphate [Mass/Vol] 3.5 mg/dL 2.6 - 4 .5 mg/dL [employer] Phone: Potassium [Moles/Vol] 4.7 mmol/L 3.7 - 5.3 mmol/L [employer] Phone: Sodium [Moles/Vol] 143 mmol/L 135 - 144 mmol/L [employer] Phone: Urea nitrogen [Mass/Vol] 30 mg/dL High 8 - 23 mg/dL [employer] Phone: Uric Acidon 10-30-2019 Urate [Mass/Vol] 5.2 mg/dL 2.4 - 5.7 mg/dL [employer] Phone: Urinalysis with Microscopico n 10-30-2019 Amorphous, UA NOT REPORTED None [employer] Phone: Bacteria, UA 3+ Abnormal None [employer] Phone: Bilirubin Urine Negative NEGATIVE [employer] Phone: Casts UA NOT REPORTED /LPF [employer] Phone: Color, UA YELLOW YELLOW [employer] Phone: Crystals UA NOT REPORTED None /HPF [employer] Phone: Epithelial Cells UA 10 TO 20 [employer] Phone: Glucose, Ur Negative NEGATIVE [employer] Phone: Interpretation and review of laboratory results Abnormal [employer] Phone: Ketones Ql (U) Negative NEGATIVE [employer] Phone: Leukocyte esterase Test strip Ql (U) TRACE Abnormal NEGATIVE [employer] Phone: Mucus, UA NOT REPORTED None [facility] Phone: Nitrite, Urine Negative NEGATIVE [facility] [employer] Phone: Other Observations UA NOT REPORTED NOT REQ. M [facility] [employer] Work Phone: pH, UA 5.0 [facility] [employer] Work Phone: Protein (U) [Mass/Vol] Negative NEGATIVE [facility] [employer] Work Phone: RBC (U) [#/Vol] 0 TO 2 [facility] [employer] Work Phone: Renal Epithelial, Urine NOT REPORTED 0 /HPF [facility] Phone: Specific [place], UA 1.020 [facility] Phone: Trichomonas, UA NOT REPORTED None [facility] [employer] Work Phone: Turbidity UA SLIGHTLY CLOUDY Abnormal CLEAR [facility] [employer] Work Phone: Urinalysis Comments NOT REPORTED [facility] [employer] Work Phone: Urine Hgb Negative NEGATIVE [facility] [employer] Phone: Urobilinogen, Urine Normal Normal [facility] [employer] Phone: WBC, UA 5 TO 10 [facility] [employer] Work Phone: Yeast, UA NOT REPORTED None [facility] [employer] Work Phone: - [facility] [employer] Work Phone: CBCon 08-11-2019 Erythrocyte distribution width (RBC) [Ratio] 13.8 % 11.8 - 14.4 % [place] Hematocrit (Bld) [Volume fraction] 40.5 % 36.3 - 47.1 % [place] Hemoglobin (Bld) [Mass/Vol] 12.5 g/dL 11.9 - 15.1 g/dL [place] MCH (RBC) [Entitic mass] 30.9 pg 25. 2 - 33.5 pg [place] MCHC (RBC) [Mass/Vol] 30.9 g/dL 28.4 - 34.8 g/dL [place] MCV (RBC) [Entitic vol] 100.2 fL 82.6 - 102.9 fL [place] Platelet mean volume (Bld) [Entitic vol] 10.5 fL 8.1 - 13.5 fL [place] Platelets (Bld) [#/Vol] 245 10*3/uL [place] RBC (Bld) [#/Vol] 4.04 10*6/uL 3.95 - 5.1 1 m/uL [place] WBC (Bld) [#/Vol] 7.1 10*3/uL [place] WBC (Bld) [#/Vol] 0.0 10*3/uL 0.0 per 10 0 WBC [place] Creatinine Clearanceon 08-11 Creatinine [Mass/Vol] 54.7 mg/dL 28 - 2 17 mg/dL [place] Creatinine [Mass/Vol] 1.8 mg/dL High 0.5 - 0.9 mg/dL [place] Creatinine Clearance 25.8 Low [place] Interpretation and review of laboratory results Abnormal [place] Length Of Collection 24 h [place], [place] Patient Height 155 cm [place] Volume 1175 mL [place] Creatinine, Random Urineon 1 10-11-2018 Creatinine, Ur 18.5 mg/dL Low 28 - 217 mg/dL [place] Interpretation and review of laboratory results Abnormal [place] Magnesiumon 08-11-2019 Magnesium [Mass/Vol] 1.9 mg/dL 1.6 - 2 .6 mg/dL [place] Metabolic Panelon 08-11-2019 GFR/1.73 sq M predicted among non-blacks MDRD (S/P/Bld) [Vol rate/Area] [place] Comment on above: Average GFR for 70 o r more years old: 75 mL/min/1.73sq m Chronic Kidney Disease: <60 mL/min/1.73sq m Kidney failure: <15 mL/min/1.73sq m eGFR calculated using average adult body mass. Additional eGFR calculator available at: [email or web address] Stage 1: Some kidney damage normal GFR Stage 2: Mild kidney damage GFR 60-89 Stage 3: Moderate kidney damage GFR 30-59 Stage 4: Severe kidney damage GFR 15-29 Stage 5: Severe kidney damage GFR <15 ESRD - chronic treatment by dialysis or transplant PTH, [place] 08-11-2019 Interpretation and review of laboratory results Abnormal [place] Pth Intact 99.15 pg/mL High 15 - 65 pg/mL [place] Comment on above: SAMPLES FROM PATIENT S ROUTINELY RECEIVING HIGH DOSE BIOTIN THERAPY MAY SHOW FALSELY DEPRESSED RESULTS. ADDITIONAL INFORMATION MAY BE REQUIRED FOR DIAGNOSIS. Protein, urine, randomon Protein (U) [Mass/Vol] mg/dL mg/dL [place] Comment on above: No normal range esta blished. Protein, urine, timedon 07-28 Hours Collected 24 h [place] Protein (U) [Mass/Vol] 5 mg/dL [place] Volume 1175 mL [place] Comment on above: CORRECTED ON 08/11 A T 1745: PREVIOUSLY REPORTED 1175 ML Renal Function Panelon 08-11 Albumin [Mass/Vol] 4.3 g/dL 3.5 - 5.2 g/dL [place] Anion gap [Moles/Vol] 15 mmol/L 9 - 17 mmol/L [place] Bun/Cre Ratio 16 [place] Calcium [Mass/Vol] 9.2 mg/dL 8.6 - 10. 4 mg/dL [place] Chloride [Moles/Vol] 100 mmol/L 98 - 10 7 mmol/L [place] CO2 [Moles/Vol] 22 mmol/L 20 - 31 mmol/L [place] Creatinine [Mass/Vol] 1.8 mg/dL High 0.5 - 0.9 mg/dL [place] GFR 33 mL/min Low >60 [place] GFR Non- 27 mL/min Low >60 [place] Glucose [Mass/Vol] 110 mg/dL High 70 - 99 mg/dL [place] Interpretation and review of laboratory results Abnormal [place] Phosphate [Mass/Vol] 2.8 mg/dL 2.6 - 4 .5 mg/dL [place] Potassium [Moles/Vol] 4.1 mmol/L 3.7 - 5.3 mmol/L [place] Sodium [Moles/Vol] 137 mmol/L 135 - 144 mmol/L [place] Urea nitrogen [Mass/Vol] 29 mg/dL High 8 - 23 mg/dL [place] TSH without Reflexon 019 TSH Qn 3.22 m[IU]/L [place] RENAL COMPLETEon 08-11-20 19 1. [...] CT for confirmation of the above findings. [place] EXAMINATION: RETROPERITONEAL ULTRASOUND OF THE KIDNEYS AND URINARY BLADDER 08/11/2019 COMPARISON: None HISTORY: ORDERING SYSTEM PROVIDED HISTORY: Chronic kidney disease, stage IV (severe) ([facility]) FINDINGS: Kidneys: Suboptimal evaluation due to patient [...] the bladder. No significant post void residual. [place], [employer] Incoming Radiant Results From [employer] - 08/11/2019 12:53 PM EST EXAMINATION: RETROPERITONEAL ULTRASOUND OF THE KIDNEYS AND URINARY BLADDER 08/11/2019 COMPARISON: None HISTORY: ORDERING SYSTEM PROVIDED HISTORY: Chronic kidney disease, stage IV (severe) ([facility]) FINDINGS: Kidneys: Suboptimal evaluation due to patient [...] CT for confirmation of the above findings. [place] Uric Acidon 08-11-2019 Urate [Mass/Vol] 5.4 mg/dL 2.4 - 5.7 mg/dL [place] Urinalysison 08-11-2019 Protein (U) [Mass/Vol] NOT REPORTED mg/X h [place] Urinalysis with Microscopico n 08-11-2019 Amorphous, UA NOT REPORTED None [place] Bacteria, UA TRACE Abnormal None [place] Bilirubin Urine Negative NEGATIVE [place] Casts UA NOT REPORTED /LPF [place] Color, UA YELLOW YELLOW [place] Crystals UA NOT REPORTED None /HPF [place] Epithelial Cells UA 0 TO 2 [place] Glucose, Ur Negative NEGATIVE [place] Interpretation and review of laboratory results Abnormal [place] Ketones Ql (U) Negative NEGATIVE [place] Leukocyte esterase Test strip Ql (U) Negative NEGATIVE [facility] Mucus, UA NOT REPORTED None [facility] Nitrite, Urine Negative NEGATIVE [facility] Other Observations UA NOT REPORTED NOT REQ. M [facility] pH, UA 5.5 [facility] Protein (U) [Mass/Vol] Negative NEGATIVE Me [facility] RBC (U) [#/Vol] 0 TO 2 [facility] Renal Epithelial, Urine NOT REPORTED 0 /HPF [facility] Specific [place], UA <1.005 [facility] [place] Trichomonas, UA NOT REPORTED None [facility] Turbidity UA CLEAR CLEAR [facility] Urinalysis Comments NOT REPORTED [facility] Urine Hgb Negative NEGATIVE [facility] Urobilinogen, Urine Normal Normal [facility] WBC, UA 0 TO 2 [facility] Yeast, UA NOT REPORTED None [facility], [place] - [facility] Vitamin B12 & Folateon 08-11 Cobalamin (Vitamin B12) [Mass/Vol] 391 pg/mL 232 - 1245 pg/mL [place] Folate 7.7 ng/mL >4.8 [place] Vital Signs Date Time Vital Sign Value Performing Clinician Facility 08-16-2024 11:120500 Body height 152.4 cm [facility] 08-16-2024 11:12-0500 Body mass index (BMI) [Ratio] 27.1 kg/m2 [facility] 08-16-2024 11:12-0500 Body weight 63.04 kg [facility] 08-16-2024 11:12-0500 Diastolic blood pressure 76 mm[Hg] [facility] 08-16-2024 11:12-0500 Heart rate 66 /min [facility] 08-16-2024 11:12-0500 Systolic blood pressure 163 mm[Hg] [facility] 01-19-2024 09:43-0400 Body height 152.4 cm [facility] 01-19-2024 09:43-0400 Body mass index (BMI) [Ratio] 25.4 kg/m2 [facility] 01-19-2024 09:43-0400 Body temperature 97.9 [degF] [facility] 01-19-2024 09:43-0400 Body weight 58.96 kg [facility] 01-19-2024 09:43-0400 Diastolic blood pressure 75 mm[Hg] [facility] 01-19-2024 09:43-0400 Heart rate 74 /min [facility] 01-19-2024 09:43-0400 Systolic blood pressure 148 mm[Hg] [facility] 12-06-2023 14:21-0400 Diastolic blood pressure 88 mm[Hg] Mark O'Wiley PA-C Work Phone: [facility] 12-06-2023 14:21-0400 Heart rate 60 /min Mark O'Wiley PA-C Work Phone: [facility] 12-06-2023 14:21-0400 Systolic blood pressure 155 mm[Hg] Mark O'Wiley PA-C Work Phone: [facility] 09-09-2023 13:00-0500 Diastolic blood pressure 88 mm[Hg] Brina Cordero Other [facility] [employer] Other 09-09-2023 13:00-0500 Respiratory rate 12 /min Brina Cordero Other [employer] [facility] [employer] Other 09-09-2023 13:00-0500 Systolic blood pressure 132 mm[Hg] Brina Cordero Other [facility] [employer] Other 08-31-2023 22:45-0500 Diastolic blood pressure 94 [...] blood pressure 72 mm[Hg] Brina Cordero Other [facility] [employer] Other 06-11-2023 13:00-0400 Respiratory rate 12 /min Brina Cordero Other [employer] [facility] [employer] Other 06-11-2023 13:00-0400 Systolic blood pressure 178 mm[Hg] Brina Cordero Other [facility] [employer] Other 09-12-2020 11:04-0500 BP Diastolic 63 mm[Hg] [facility] [place] Comment on above: 2nd reading 09-12-2020 11:04-0500 BP Systolic 139 mm[Hg] [facility] [place] Comment on above: 2nd reading 09-12-2020 11:04-0500 Pulse (Heart Rate) 65 /min [facility] [place] 09-12-2020 11:02-0500 Body Temperature 96.1 [degF] [facility] [place] 09-12-2020 11:02-0500 Respiratory Rate 20 /min [facility] [place] 08-15-2020 10:48-0500 Body Temperature 96.69 [degF] [facility] [place] 08-15-2020 10:48-0500 BP Diastolic 90 mm[Hg] [facility] [place] 08-15-2020 10:48-0500 BP Systolic 147 mm[Hg] [facility] [place] 08-15-2020 10:48-0500 Pulse (Heart Rate) 69 /min [facility] [place] 08-15-2020 10:48-0500 Respiratory Rate 22 /min [facility] [place] 07-18-2020 10:55-0400 Body Temperature 97.81 [degF] [facility] [place] 07-18-2020 10:55-0400 BP Diastolic 71 mm[Hg] [facility] [place] 07-18-2020 10:55-0400 BP Systolic 133 mm[Hg] [facility] [place] 07-18-2020 10:55-0400 Pulse (Heart Rate) 79 /min [facility] [place] 07-18-2020 10:55-0400 Respiratory Rate 16 /min [facility] [place] 06-27-2020 11:04-0400 BP Diastolic 71 mm[Hg] [facility] [place] 06-27-2020 11:04-0400 BP Systolic 123 mm[Hg] [facility] [place] 06-27-2020 11:04-0400 Pulse (Heart Rate) 84 /min [facility] [place] 06-27-2020 11:04-0400 Respiratory Rate 22 /min [facility] [place] 05-30-2020 13:10-0400 Body Temperature 97.59 [degF] [facility] [place] 05-30-2020 13:10-0400 BP Diastolic 86 mm[Hg] [facility] [place] 05-30-2020 13:10-0400 BP Systolic 136 mm[Hg] Glenn Simon [facility] , [place] 05-30-2020 13:10-0400 Pulse (Heart Rate) 108 /min Glenn Simon [facility], [place] 05-30-2020 13:10-0400 Respiratory Rate 20 /min Glenn Simon [facility] [place] 05-15-2020 14:09-0400 Pulse Oximetry 97 % Chele Simon [facility] , [place] 05-15-2020 08:52-0400 Body Temperature 98.2 [degF] Chele Simon [facility] [place] 05-15-2020 08:52-0400 BP Diastolic 58 mm[Hg] [facility] [place] 05-15-2020 08:52-0400 BP Systolic 118 mm[Hg] [facility] [place] 05-15-2020 08:52-0400 Pulse (Heart Rate) 68 /min [facility] [place] 05-15-2020 08:52-0400 Respiratory Rate 16 /min Chele Simon [facility] [place] , [place] 05-10-2020 10:40-0400 BMI (Body Mass Index) 27.21 kg/m2 Chele Simon [facility], [place] 05-10-2020 10:40-0400 Body weight 69.67 kg Chele Lagos [facility] , [place] 05-10-2020 10:40-0400 Height 160 cm Chele Simon [facility] , [place] 04-06-2020 07:53-0400 Body Temperature 97 [degF] Kian Ernst [facility] [place] 04-06-2020 07:53-0400 BP Diastolic 80 mm[Hg] Kian Ernts [facility] [place] 04-06-2020 07:53-0400 BP Systolic 120 mm[Hg] Kian Klever [facility] [place], [place] 04-06-2020 07:53-0400 Pulse (Heart Rate) 66 /min Kian Ernst [facility] [place], [place] 04-06-2020 07:53-0400 Pulse Oximetry 96 % Kian Klever [facility], [place] 04-06-2020 07:53-0400 Respiratory Rate 16 /min Kian Simon [facility], [place] 04-06-2020 04:30-0400 BMI (Body Mass Index) 30.86 kg/m2 Kian Ernst [facility], [place] 04-06-2020 04:30-0400 Body weight 71.67 kg Kian Ernst [facility], [place] 04-03-2020 07:32-0400 Height 152.4 cm Kian Ernst [facility], [place] 03-23-2020 17:22-0400 BP Diastolic 82 mm[Hg] Forest Mtzvelma [facility] , [place] 03-23-2020 17:22-0400 BP Systolic 137 mm[Hg[facility] [place] 03-23-2020 17:22-0400 Pulse [facility]ximetry 99 % [facility] [place] 03-23-2020 15:09-0400 Body Temperature 98.4 [degF] [facility] [place] 03-23-2020 15:09-0400 Pulse (Heart Rate) 76 /min [facility] [place] 03-23-2020 15:07-0400 BMI (Body Mass Index) 31.05 kg/m2 Forest Baer [facility], [place] 03-23-2020 15:07-0400 Body weight 72.12 kg Forest Baer [facility] , [place] 03-23-2020 15:07-0400 Height 152.4 cm [facility] [place] 03-23-2020 15:07-0400 Respiratory Rate 18 /min Forest Baer [facility] [place] 02-09-2020 15:52-0400 BP Diastolic 50 mm[Hg] [facility] [place] 02-09-2020 15:52-0400 BP Systolic 136 mm[Hg] [facility] [place] 02-09-2020 15:52-0400 Pulse (Heart Rate) 54 /min [facility] [place] 02-09-2020 15:52-0400 Pulse Oximetry 98 % Mariusz Simon [facility] SHREYA 02-09-2020 15:52-0400 Respiratory Rate 18 /min Mariusz Lovett SHREYA Sneed 02-09-2020 11:10-0400 Body Temperature 98.6 [degF] SHREYA Dalal 02-09-2020 11:10-0400 Body weight 68.04 kg Mariusz Simon [facility] SHREYA 08-11-2019 15:08-0500 Body weight 67 kg [facility] [place] Encounters Encounter Date Encounter Type Care Provider Facility Start: 08-16-2024 End: 08-16-2024 ambulatory [facility] Work Phone: Start: 08-16-2024 End: 08-16-2024 Patient encounter procedure [facility] Physician [facility] Work Phone: Start: 07-28-2024 End: 07-28-2024 Office outpatient visit 25 minutes Mark Cesar PA-C Work Phone: Urology Comment on above: Nephrolithiasis (Mckenna kapil Dx); Renal cyst Start: 07-28-2024 End: 07-31-2024 ambulatory Mark Ibrahim'Wiley PA-C Work Phone: Urology Start: 07-14-2024 Non-patient / [facility] Work Phone: Start: 06-28-2024 Non-patient / Non-visit [facility] Physician [facility] Work Phone: Start: 06-27-2024 Non-patient / Non-visit [facility] Work Phone: Start: 06-15-2024 ambulatory Luis Jaquez [facility] Start: 05-22-2024 Non-patient / Non-visit [facility] Physician [facility] Work Phone: Start: 05-03-2024 End: 05-03-2024 ambulatory BRINA CORDERO [...] Not Available Start: 01-19-2024 End: 01-19-2024 ambulatory [facility] Work Phone: Start: 01-19-2024 End: 01-19-2024 Patient encounter procedure [facility] Work Phone: Start: 01-10-2024 End: 01-10-2024 ambulatory KODY A FACUNDO Not Available Start: 01-10-2024 Non-patient / Non-visit [facility] Physician [facility] Work Phone: Start: 01-09-2024 Non-patient / Non-visit [facility] Work Phone: Start: 01-04-2024 Telephone encounter Mark Nidia nohue PA-C Work Phone: Urology Start: 01-04-2024 Non-patient / Non-visit [facility] Work Phone: Start: 12-29-2023 End: 12-29-2023 ambulatory KODY A FACUNDO Not Available Start: 12-21-2023 Non-patient / Non-visit [facility] Physician [facility] Work Phone: Start: 12-08-2023 Telephone encounter Mark Alexandria'Do nohue PA-C Work Phone: Urology Comment on above: Results Start: 12-06-2023 End: 12-06-2023 Patient encounter procedure Mark O'Wiley PA-C Work Phone: Urology Comment on above: Nephrolithiasis (Mckenna kapil Dx); Hydronephrosis, unspecified hydronephrosis type Start: 12-06-2023 End: 12-06-2023 ambulatory Mark Ute PA-C Work Phone: Urology Start: 12-06-2023 End: 12-06-2023 Subsequent hospital visit by physician [facility] Comment on above: Nephrolithiasis [N20 .0] Start: 12-06-2023 End: 12-06-2023 Subsequent hospital visit by physician [facility] 5 Work Phone: Radiology Comment on above: Nephrolithiasis [N20 .0] Start: 12-01-2023 End: 12-01-2023 ambulatory KODY LOREDO Not Available Start: 11-24-2023 Non-patient / Non-visit [facility] Physician [facility] Work Phone: Start: 11-22-2023 Non-patient / Non-visit [facility] Physician [facility] Work Phone: Start: 11-12-2023 Non-patient / Non-visit [facility] Physician [facility] Work Phone: Start: 11-11-2023 Non-patient / Non-visit [facility] Physician [facility] Work Phone: Start: 10-27-2023 End: 10-27-2023 ambulatory RICCO GARLAND Facility:[facility] Start: 10-17-2023 End: 10-21-2023 ambulatory RICCO GARLAND Facility:[facility] Start: 10-15-2023 End: 10-15-2023 ambulatory Brina Cordero Other [employer] Other Start: 10-15-2023 Telephone encounter Brina Cordero [facility] Start: 10-07-2023 End: 10-07-2023 ambulatory Brina Cordero Other [employer] Other Start: 10-07-2023 Telephone encounter Brina Cordero [facility] Start: 10-05-2023 End: 10-05-2023 ambulatory Brina Roxie Other [employer] Other Start: 10-05-2023 Telephone encounter Brina Cordero [facility] Start: 09-23-2023 Encounter for other preprocedural examination RICCO GARLAND [facility] Start: 09-23-2023 End: 09-23-2023 ambulatory STEFANIECARMELLA OCAMPO Facility:[facility] Start: 09-23-2023 Preprocedural examin ation done Xr A[facility] Work Phone: Start: 09-23-2023 End: 09-23-2023 ambulatory BRINA CORDERO Facility:[facility] Start: 09-23-2023 End: 09-23-2023 ambulatory BRINA CORDERO Facility:[facility] Start: 09-17-2023 ambulatory BRINA CORDERO Facility :[facility] Start: 09-09-2023 End: 09-09-2023 ambulatory Brina Roxie Other [employer] Other Start: 09-09-2023 Transitional care janina singh sr 14 day discharge Brina Cordero [facility] Start: 09-08-2023 Orders Only Ricco Garland MD Work Phone: Urology Comment on above: Hydronephrosis with urinary obstruction due to renal calculus (Primary Dx) Start: 09-07-2023 End: 09-07-2023 ambulatory RICCO GARLAND Facility:[facility] Start: 09-06-2023 ambulatory Harsh Hardy ty:OSWALDO Galvan Start: 09-03-2023 End: 09-04-2023 ambulatory Justino Martinez [employer] Other Start: 09-03-2023 Telephone encounter Brina Roxie [facility] Start: 09-01-2023 End: 09-03-2023 Evaluation and management of inpatient Brina Cordero Facility:[facility] Start: 08-31-2023 Evaluation and manag ement of inpatient MD Destiny Irwin Work Phone: [facility] Work Phone: Start: 08-31-2023 End: 08-31-2023 ambulatory Brina Cordero Other [employer] Other Start: 08-31-2023 Telephone encounter Brina Roxie [facility] Start: 08-30-2023 End: 08-30-2023 ambulatory Brina Cordero Other [employer] Other Start: 08-30-2023 Telephone encounter Brina Roxie [facility] Start: 08-26-2023 End: 08-27-2023 ambulatory Harsh Elizabeth CLAYTON [employer] Other Start: 08-26-2023 Telephone encounter Brina Roxie [facility] Start: 08-24-2023 End: 08-24-2023 ambulatory Brina Roxie Other [employer] Other Start: 08-24-2023 Telephone encounter Brina Cordero [facility] Start: 08-23-2023 End: 08-23-2023 ambulatory Brina Roxie Other [employer] Other Start: 08-23-2023 Telephone encounter Brina Cordero [facility] Start: 08-03-2023 End: 08-03-2023 ambulatory Brina Roxie Other [employer] Other Start: 08-03-2023 Telephone encounter Brina Cordero [facility] Start: 08-02-2023 End: 08-02-2023 ambulatory Brina Roxie Other [employer] Other Start: 08-02-2023 Telephone encounter Brina Cordero [facility] Start: 07-21-2023 End: 07-21-2023 ambulatory Brina Roxie Other [employer] Other Start: 07-21-2023 Telephone encounter Brina Cordero [facility] Start: 07-19-2023 End: 07-19-2023 ambulatory Brina Cordero Other [employer] Other Start: 07-19-2023 Telephone encounter Brina Cordero [facility] Start: 07-05-2023 End: 07-05-2023 ambulatory Brina Roxie Other [employer] Other Start: 07-05-2023 Telephone encounter Brina Cordero [facility] Start: 06-11-2023 End: 06-11-2023 ambulatory Brina Roxie Other [employer] Other Start: 06-11-2023 Patient encounter procedure Brina Roxie [facility] Start: 05-26-2023 (PA) [facility] Brina [facility]ordero [facility] Start: 05-26-2023 End: 05-26-2023 ambulatory Brina Roxie Other [employer] Other Start: 10-14-2021 End: 10-15-2021 ambulatory JUSTINO Paolo [facility] Start: 10-03-2021 End: 10-04-2021 ambulatory JUSTINO Paolo [facility] Start: 06-24-2021 End: 06-25-2021 ambulatory JUSTINO Paolo [facility] Start: 06-24-2021 End: 06-24-2021 Subsequent hospital visit by physician Justino Dhaliwal DO Work Phone: [facility] Start: 04-12-2021 End: 04-12-[address] ALAN HERNANDEZ Facility: Start: 02-20-2021 End: 02-21-2021 ambulatory JUSTINO Paolo [facility] Start: 02-20-2021 End: 02-20-2021 Subsequent hospital visit by physician Justino Dhaliwal DO Work Phone: [facility] Start: 12-05-2020 End: 12-06-2020 ambulatory [facility] CHEW [facility] Start: 12-05-2020 End: 12-05-2020 Subsequent hospital visit by physician Justino Dhaliwal [facility] Start: 11-07-2020 End: 11-08-2020 ambulatory JUSTINO [facility]ALIWAL [facility] Start: 11-07-2020 End: 11-07-2020 Subsequent hospital visit by physician Justino Dhaliwal [facility] Start: 11-06-2020 End: 11-07-2020 ambulatory JUSTINO [facility]ALIWAL [facility] Start: 11-06-2020 End: 11-06-2020 Subsequent hospital visit by physician Justino Dhaliwal [facility] Start: 10-30-2020 End: 10-31-2020 ambulatory JUSTINO [facility]ALIWAL [facility] Start: 10-30-2020 End: 10-30-2020 Subsequent hospital visit by physician Justino Dhaliwal [facility] Start: 10-23-2020 End: 10-24-2020 ambulatory [facility] Start: 10-23-2020 End: 10-23-2020 Subsequent hospital visit by physician Justino Dhaliwal [facility] Start: 09-26-2020 End: 09-26-2020 Subsequent hospital visit by physician Justino Dhaliwal [facility] Start: 09-25-2020 End: 09-25-2020 Subsequent hospital visit by physician Justino Dhaliwal [facility] Start: 09-18-2020 End: 09-18-2020 Subsequent hospital visit by physician Justino Dhaliwal [facility] Start: 09-12-2020 End: 09-12-2020 Subsequent hospital visit by physician Glenn Martínez Work Phone: [facility] Comment on above: Decubitus ulcer of h eel, left, unstageable (HCC) (Primary Dx) Start: 09-11-2020 End: 09-11-2020 Subsequent hospital visit by physician Justino Dhaliwal [facility] Start: 09-06-2020 End: 09-06-2020 Subsequent hospital visit by physician Justino Dhaliwal [facility] Start: 09-05-2020 End: 09-05-2020 Subsequent hospital visit by physician Justino Dhaliwal [facility] Start: 08-28-2020 End: 08-28-2020 Subsequent hospital visit by physician Justino [facility] Start: 08-27-2020 End: 08-27-2020 Subsequent hospital visit by physician Justino [facility] Start: 08-21-2020 End: 08-21-2020 Subsequent hospital visit by physician Justino [facility] Start: 08-16-2020 End: 08-16-2020 Subsequent hospital visit by physician Justino [facility] Start: 08-15-2020 End: 08-15-2020 Subsequent hospital visit by physician Glenn Martínez Work Phone: [facility] Comment on above: Decubitus ulcer of h eel, left, unstageable (HCC) (Primary Dx) Start: 08-09-2020 End: 08-09-2020 Subsequent hospital visit by physician Justino [facility] Start: 07-18-2020 End: 07-18-2020 Subsequent hospital visit by physician Glenn Martínez Work Phone: [facility] Comment on above: Decubitus [...] visit by physician Glenn Martínez Work Phone: [facility] Comment on above: Decubitus [...] Subsequent [facility] Start: 06-18-2020 End: 06-18-2020 Subsequent hospital visit by physician Justino Dhaliwal [facility] Start: 06-13-2020 End: 06-13-2020 Subsequent hospital visit by physician Asif Ventura Drawing Room [facility] Comment on above: Arrived Decubitus ulcer of h eel, left, unstageable (HCC) (Primary Dx) Start: 06-12-2020 End: 06-12-2020 Subsequent hospital visit by physician Justino Dhaliwal [facility] Start: 06-06-2020 End: 06-06-2020 Subsequent hospital visit by physician Justino Dhaliwal [facility] Start: 05-30-2020 End: 05-30-2020 Subsequent hospital visit by physician Glenn Martínez Work Phone: [facility] Start: 05-30-2020 End: 05-30-2020 Subsequent hospital visit by physician Justino Dhaliwal [facility] Start: 05-23-2020 End: 05-23-2020 Subsequent hospital visit by physician Justino Dhaliwal [facility] Start: 05-23-2020 End: 05-23-2020 Subsequent hospital visit by physician Justino Dhaliwal [facility] Start: 05-17-2020 End: 05-17-2020 Subsequent hospital visit by physician Justino Dhaliwal [facility] Start: 05-10-2020 End: 05-15-2020 Evaluation and management of inpatient CHELE LAGOS [facility] Start: 05-10-2020 End: 05-15-2020 Evaluation and management of inpatient Chele Lagos Work Phone: [facility] Orthoped[facility] 7K Comment on above: 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); Periprosthetic intertrochanteric fracture of femur, initial encounter Start: 05-09-2020 End: 05-09-2020 Subsequent hospital visit by physician Justino Dhaliwal [facility] Start: 05-08-2020 End: 05-08-2020 Subsequent hospital visit by physician Justino Dhaliwal [facility] Start: 05-03-2020 End: 05-03-2020 Subsequent hospital visit by physician Justino Dhaliwal [facility] Start: 04-10-2020 End: 04-10-2020 Subsequent hospital visit by physician Justino Dhaliwal [facility] Start: 04-02-2020 End: 04-06-2020 Evaluation and management of inpatient Kian Ernst [facility] Comment on above: General weakness (Pr imary Dx); Hypokalemia; Malaise; Cellulitis of right upper extremity Start: 03-25-2020 End: 03-25-2020 Subsequent hospital visit [facility] Start: 03-23-2020 End: 03-23-2020 Emergency department patient visit Forest Baer Work Phone: [facility] ED Comment on above: Pain of left hip bridger nt (Primary Dx) Start: 03-12-2020 End: 03-12-2020 Subsequent hospital visit by physician [facility] Start: 02-27-2020 End: 02-27-2020 Subsequent hospital visit by physician [facility] Start: 02-20-2020 End: 02-20-2020 Subsequent hospital visit by physician [facility] Start: 02-09-2020 End: 02-15-2020 Evaluation and management of inpatient Carlos Carlin Facility:[facility] Start: 02-09-2020 End: 02-09-2020 Emergency department patient visit Mariusz Rodriguez Work Phone: [facility] ED Comment on above: Closed displaced int ertrochanteric fracture of left femur, initial encounter (HCC) (Primary Dx) Start: 02-02-2020 End: 02-02-2020 Subsequent hospital visit by physician [facility] Drawing Room [facility] Comment on above: Arrived Start: 10-30-2019 End: 10-30-2019 Subsequent hospital visit by physician Justino Dhaliwal [facility] Start: 08-11-2019 End: 08-13-2019 Subsequent hospital visit by physician [facility] Drawing Room [facility] Comment on above: Arrived Chronic kidney disea se, stage IV (severe) ([facility]) Procedures Date Procedure Procedure Detail Performing Clinician Start: 07-28-2024 Urnls dip stick/tabl et rgnt auto w/o microscopy Bulk Order Provider Start: 06-15-2024 Computerized ophthal alan imaging retina Luis Nolasco Start: 01-04-2024 Bacteria identified in Urine by Culture Start: 12-06-2023 Radiologic exam abdo men 3+ views Ricco Garland MD Work Phone: Start: 12-06-2023 Us retroperitoneal r eal time w/image complete Ricco Garland MD Work Phone: Start: 09-23-2023 Antibody screen RICCO NO BLE Comment on above: Order Comment: Speci men Type: BLOOD SPECIMENOrdering Facility: [facility] Address: [address] [place] [address] Performed By: #### T [id number] ####CC MAIN BLOOD BANKCLIA [id number] ASHANTI [facility] [id number] STATES [facility] Start: 08-31-2023 Urine culture MD Destiny Irwin Work Phone: Start: 12-05-2020 Blood count complete auto&auto difrntl wbc Manuel Ratnasamy Work Phone: Start: 12-05-2020 C-reactive protein Sana jeffrey Ratnasamy Work Phone: Start: 12-05-2020 Assay of blood/uric acid [place]ah[place] U Iboaya Work Phone: Start: 12-05-2020 Assay of magnesium [place] [facility] U Iboaya Work Phone: Start: 12-05-2020 Assay of parathormone B enahili U Iboaya Work Phone: Start: 12-05-2020 Renal function panel Be nahili U Iboaya Work Phone: Start: 11-07-2020 Blood count complete auto&auto difrntl wbc Manuel Ratnasamy Work Phone: Start: 11-07-2020 C-reactive protein Sana jeffrey Ratnasamy Work Phone: Start: 11-07-2020 Sedimentation rate r bc automated Manuel Ratnasamy Work Phone: Start: 10-30-2020 Lipid panel Justino F Dany rachel Work Phone: Start: 10-23-2020 Blood count complete automated Manuel Ratnasamy Work Phone: Start: 10-23-2020 C-reactive protein Sana jeffrey Ratnasamy Work Phone: Start: 10-23-2020 Comprehensive metabo lic panel Manuel Ratnasamy Work Phone: Start: 10-23-2020 Sedimentation rate r bc automated Manuel Ratnasamy Work Phone: Start: 09-26-2020 Assay of magnesium Vincent s F Yazmin Work Phone: Start: 09-26-2020 Blood count complete automated Manuel Ratnasamy Work Phone: Start: 09-26-2020 C-reactive protein Sana jeffreychino Myersnasamy Work Phone: Start: 09-26-2020 Comprehensive metabo lic panel Manuelraymond Myersnasamy Work Phone: Start: 09-26-2020 Sedimentation rate r bc automated Manuel Ratnasamy Work Phone: Start: 09-18-2020 Blood count complete automated Manuel Ratnasamy Work Phone: Start: 09-18-2020 C-reactive protein Sana jeffreychino Myersnasamy Work Phone: Start: 09-18-2020 Comprehensive metabo lic panel Manuelraymond Myersnasamy Work Phone: Start: 09-18-2020 Sedimentation rate r [...] 08-28-2020 Sedimentation rate r bc automated Manuel Myersnasamy Work Phone: Start: 08-27-2020 Urinalysis microscop ic [...] Start: 08-16-2020 Blood count complete automated Manuel Myersnasamy Work Phone: Start: 08-16-2020 C-reactive protein Sana jeffreychino Cunhaamy Work Phone: Start: 08-16-2020 Comprehensive metabo lic panel Manuelraymond Myersnasamy Work Phone: Start: 08-16-2020 Sedimentation rate r bc automated Manuel Myersnasamy Work Phone: Start: 08-09-2020 Assay of [...] Work Phone: Start: 07-18-2020 Assay of magnesium [place] [facility] [facility] Iboaya Work Phone: Start: 07-18-2020 [...] 06-06-2020 Sedimentation rate r bc automated Manuel Ibarra Work Phone: Start: 05-30-2020 C-reactive protein Sana [...] LAGOS Start: 05-15-2020 DISCHARGE PATIENT NIKHIL Ross DEMODN Start: 05-15-2020 Blood count hemoglobin [place] Danna Escobedo Work Phone: Start: 05-15-2020 INITIATE OXYGEN THER APY PROTOCOL CHELE LAGOS Start: 05-14-2020 HEMOGLOBIN AND HEMAT OCRIT, BLOOD CHELE LAGOS Start: 05-14-2020 Blood count hemoglobin Katarina Pike Work Phone: Start: 05-14-2020 TRANSFUSE RED BLOOD CELLS CHELE LAGOS Start: 05-14-2020 Antibody screen Chele Lagos Comment on above: Performed at [facility] [address] [place] [id number] Start: 05-14-2020 PREPARE RBC (CROSSMATCH) CHELE DEMOND Start: 05-14-2020 TYPE AND SCREEN CHELE DEMOND Start: 05-14-2020 FOOT/ANKLE BOOT CHELE ARANGOZINA Start: 05-14-2020 Radex foot complete minimum 3 views CHELE ARANGOZINA Start: 05-14-2020 INITIATE OXYGEN THER APY PROTOCOL CHELE DEMOND Start: 05-14-2020 TRANSFUSION REACTION MANAGEMENT CHELE DEMOND Start: 05-14-2020 VERIFY INFORMED CONSENT CHELE ARANGOZINA Start: 05-14-2020 VITAL SIGNS PER TRANSFUSION PROTOCOL CHELE DEMOND Start: 05-14-2020 Antibody bordetella SARA CRISTOBAL DEMOND Start: 05-14-2020 Basic metabolic pane l calcium total CHELE DEMOND Start: 05-14-2020 Blood count complete auto&auto difrntl wbc CHELE HAMZINA Start: 05-14-2020 Blood smear peripher al interp phys w/writ report CHELE DEMOND Start: 05-14-2020 Creatinine blood CHELE HAMZINA Start: 05-14-2020 Blood typing serologic abo Gheith Eliseo Work Phone: Start: 05-14-2020 Radex foot complete minimum 3 views Katarina Pike Work Phone: Start: 05-14-2020 Anion gap [...] N DEMOND Start: 05-12-2020 Antibody bordetella SARA LAGOS Start: [...] count complete auto&auto difrntl wbc Sylvia Grayson [employer] Work Phone: Start: 05-12-2020 GLOMERULAR FILTRATIO N RATE, ESTIMATED Sylvia Grayson [employer] Work Phone: Start: 05-12-2020 STRAIGHT CATH CHELE SINGH Start: 05-12-2020 BLADDER SCAN CHELE IZAGUIRRE Start: 05-12-2020 BLADDER SCAN Mirian Merazing Start: 05-11-2020 NURSING COMMUNICATION S MAGDIEL LAGOS [...] count complete auto&auto difrntl wbc Sylvia Grayson [employer] Work Phone: Start: 05-11-2020 Anion gap [Moles/Vol] C ourlauren Grayson [employer] Work Phone: Start: 05-11-2020 Basic metabolic pane l calcium total Sylvia Grayson [employer] Work Phone: Start: 05-11-2020 GLOMERULAR FILTRATIO N RATE, ESTIMATED Sylvia Grayson [employer] Work Phone: Start: 05-10-2020 DIET GENERAL CHELE IZAGUIRRE Start: 05-10-2020 IP CONSULT TO HOSPITALIST CHELE LAGOS Start: 05-10-2020 OT EVAL AND TREAT NIKHIL LAGOS Start: 05-10-2020 PLACE INTERMITTENT PNEUMATIC COMPRESSION DEVICE CHELE ARANGOZINA Start: 05-10-2020 PT EVAL AND TREAT NIKHIL LAGOS Start: 05-10-2020 WEIGHT BEARING TOLERATED CHELE DEMOND Start: 05-10-2020 FULL CODE CHELE IZAGUIRRE Start: 05-10-[address] AFFECTED AREA [address] MALICK LAGOS Start: 05-10-2020 INITIATE OXYGEN THER APY PROTOCOL CHELE LAGOS Start: 05-10-2020 INTAKE AND OUTPUT NIKHIL Ross CONCHITAZINA Start: 05-10-2020 NEURO/VASCULAR CHECKS S MAGDIEL LAGOS [...] CHELE LAGOS Start: 05-10-2020 NURSING COMMUNICATION S MOSESLAMAR LAGOS Start: 05-10-2020 TURN PATIENT CHELE IZAGUIRRE Start: 05-10-2020 TYPE AND SCREEN CHELE LAGOS Start: 05-10-2020 End: 05-10-2020 HIP TOTAL ARTHROPLASTY REVISION Chele Lagos Work Phone: Start: 05-10-2020 COVID-19 CHELE IZAGUIRRE Start: 05-10-2020 Antibody screen Chele Lagos Comment on above: Performed at [facility] [address] [place] [id number] Start: 05-10-2020 Blood typing serologic abo Chele Lagos Work Phone: Start: 05-10-2020 COVID-19 Chele Resendiz H jose Work Phone: Start: 05-09-2020 Basic metabolic pane l calcium total Chele Lagos Work Phone: Start: 05-09-2020 Blood count complete automated Chele Lagos Work Phone: Start: 05-08-2020 Urinalysis microscop ic only Jose Armando Acosta Work Phone: Start: 05-08-2020 Urnls dip stick/tabl et rgnt auto w/o microscopy Kermitbrianeliel Nannette Acosta Work Phone: Start: 05-03-2020 Basic metabolic [...] REFLEX TO MG FOR LOW K Mariusz Rodriguez Work Phone: Start: 04-02-2020 Ecg routine [...] Baer Work Phone: Start: 03-23-2020 Prothrombin time Forset Baer Work Phone: Start: 03-23-2020 Thromboplastin time [...] Ct cervical spine w/ o contrast material Mraiusz Latanya [employer] Work Phone: Start: 02-09-2020 Ct head/brain w/o co ntrast material Mariusz E [employer] Work Phone: Start: 02-09-2020 Radex hip unilateral with pelvis 2-3 views Mariusz E [employer] Work Phone: Start: 02-09-2020 Radiologic exam ches t single view Mariusz E [employer] Work Phone: Start: 02-09-2020 Blood count complete auto&auto difrntl wbc Mariusz E [employer] Work Phone: Start: 02-09-2020 Prothrombin time Mariusz E [employer] Work Phone: Start: 02-09-2020 Thromboplastin time partial plasma/whole blood Mariusz E [employer] Work Phone: Start: 02-02-2020 Assay of blood/uric [...] procedure on knee History of knee replacement Comment on above: leftProblem List atilio an-up per request of Phys. EHR Cmte Plan of Treatment Date Care Activity Detail Author Start: 10-21-2026 Diabetes Screening Diabetes Screenin g [facility] Start: 06-09-2024 End: 06-09-2024 Patient encounter procedure Radiology Comment on above: XR ABDOMEN 3V KUB W/ OBLIQUES per checkout US KIDNEY/BLADDER pe r checkout 6 month f/u for neph rolithiasis per checkout Start: 05-28-2024 Covid-19 Vaccine () Covid-19 Vaccine () [facility] Start: 05-28-2024 Influenza vaccination C [facility] Start: 10-23-2023 Diabetes Screening Diabetes Screenin [place] Start: 09-27-2023 Advance Directive Discussion Advance Directive Discussion [facility] Start: 09-27-2023 Behavioral Health Screening Behavioral Health Screening [facility] Start: 09-27-2023 Depression Assessment Depression Ass essment [facility] Start: 08-31-2023 End: 08-31-2023 [facility] Start: 08-31-2023 Plain chest X-ray XR chest 2V* [facility] Start: 08-31-2023 XR Chest 2 Views [facility] Start: 08-31-2023 CT Abdomen and Pelvi s WO contrast [facility] Start: 08-31-2023 CT of abdomen and pe lvis without contrast CT abdomen pelvis wo con [facility] Start: 08-31-2023 CT of head without contrast CT head/brain wo [facility] Start: 08-31-2023 CT Unspecified body region WO contrast [facility] Start: 08-31-2023 [facility] Start: 05-28-2023 Covid-19 Vaccine ( season) Covid-19 Vaccine () [facility] Start: 05-28-2023 Influenza vaccination Influenza Vacc ine (#1) [facility] Start: 09-27-2022 Advance Directive Discussion Advance Directive Discussion [facility] Start: 09-27-2022 Depression Assessment Depression Ass [facility] Start: 12-05-2021 Creatinine measurement Creatinine mo [facility] Work Phone: Start: 12-05-2021 Potassium monitoring Potassium monit [facility] Phone: Start: 10-30-2021 Lipid panel [facility]id screen [facility] [employer] Phone: Start: 10-23-2021 Creatinine measurement Creatinine mo [place], [place] Start: 10-23-2021 Potassium monitoring Potassium monit [place], [place] Start: 09-26-2021 Creatinine measurement Creatinine [place] Start: 09-26-2021 Potassium monitoring Potassium monit [place] Start: 09-18-2021 Creatinine measurement Creatinine [place], [place] Start: 09-18-2021 Potassium monitoring Pot[place] monit [place] Start: 09-11-2021 Creatinine measurement Creatinine [place] Start: 09-11-2021 Potassium monitoring Potassium monit [place] Start: 06-19-2021 Lipid panel Lipid screen [place], [place] Start: 05-28-2021 Influenza vaccination [facility] [employer] Phone: Start: 04-05-2021 Creatinine measurement Creatinine mo [place] Start: 04-05-2021 Potassium monitoring Potassium monit [place] Start: 03-23-2021 Creatinine measurement Creatinine [place] Start: 03-23-2021 Potassium monitoring Potassium monit [place] Start: 03-12-2021 Creatinine measurement Creatinine [place] Start: 03-12-2021 Potassium monitoring Potassium monit [place] Start: 02-26-2021 Creatinine measurement Creatinine [place] Start: 02-26-2021 Potassium monitoring Potassium monit [place] Start: 02-19-2021 Creatinine measurement Creatinine [place] Start: 02-19-2021 Potassium monitoring Potassium monit [place] Start: 02-08-2021 Creatinine measurement Creatinine [place] Start: 02-08-2021 Potassium monitoring Potassium monit [place] Start: 02-01-2021 Creatinine measurement Creatinine [place] Start: 02-01-2021 Potassium monitoring Potassium monit [facility], [place] Start: 10-30-2020 Creatinine measurement Creatinine [place] Start: 10-30-2020 Potassium monitoring Potassium monit [place] Start: 09-12-2020 End: 09-12-2020 Appointment 09/12/2020 Appointment Wound Glenn Camargo, NORAH [address] [place] [address] [phone] [facility] Start: 08-15-2020 End: 08-15-2020 Appointment 08/15/2020 Appointment Wound Glenn Camargo, NORAH [address] [place] [address] [phone] [facility] Start: 08-11-2020 Creatinine monitoring Creatinine mon [place], [place] Start: 08-11-2020 Potassium monitoring Potassium monit [place] Start: 07-18-2020 End: 07-18-2020 Appointment 07/18/2020 Appointment Wound Glenn Camargo DPM [address] [place] [address] [phone] [facility] Start: 06-27-2020 End: 06-27-2020 Appointment 06/27/2020 Appointment Wound Glenn Camargo, NORAH [address] [place] [address] [phone] [facility] Start: 06-13-2020 End: 06-13-2020 Appointment 06/13/2020 Appointment Wound Glenn Camargo, NORAH [address] [place] [address] [address] [place] [address] [phone] [facility] Start: 05-28-2020 Influenza vaccination [place] Start: 05-28-2019 Influenza vaccination Flu vaccine (# 1) [place] Start: 03-17-2019 Annual Wellness Visi t (AWV) Annual Wellness Visit (AWV) [place] Start: 03-08-2019 Creatinine monitoring Creatinine mon [place] Start: 03-08-2019 Lipid panel Lipid screen [place] Start: 03-08-2019 Lipid screen Lipid [place] Start: 03-08-2019 Potassium monitoring Potassium monit [place]ing [place] Start: 2012 RSV Vaccine (1 - 1-d ose 75+ series) RSV Vaccine (1 - 1-dose 75+ series) [facility] Start: 2002 DEXA (modify frequen cy per FRAX score) DEXA (modify frequency per FRAX score) [place] Start: 2002 Pneumococcal 65+ yea rs Vaccine (1 of 1 - PPSV23) Pneumococcal 65+ years Vaccine (1 of 1 - PPSV23) [place] Start: 2002 Pneumococcal 65+ yrs at Risk Vaccine (1 of 2 - PCV13) Pneumococcal 65+ yrs at Risk Vaccine (1 of 2 - PCV13) [place] Start: 2002 Pneumococcal Vaccine : 65+ (1 - PCV) Pneumococcal Vaccine: 65+ (1 - PCV) [facility] Start: 2002 Pneumococcal Vaccine : 65+ (1 of 1 - PCV) Pneumococcal Vaccine: 65+ (1 of 1 - PCV) [facility] Start: 2002 Screening for osteoporosis Bone Density Screening [facility] Start: 1997 RSV Vaccine (1 - 1-d ose 60+ series) RSV Vaccine (1 - 1-dose 60+ series) [facility] Start: 1992 Screening for osteoporosis DEXA (modify frequency per FRAX score) [place] Start: 1987 Shingles Vaccine (1 of 2) Galindo gles Vaccine (1 of 2) [place] Start: 1987 Shingrix Vaccine (1 of 2) Galindo grix Vaccine (1 of 2) [facility] Start: 1956 DTaP/Tdap/Td vaccine (1 - Tdap) DTaP/Tdap/Td vaccine (1 - Tdap) [place] Start: 1956 Urine microalbumin profile DTaP,Tdap,Td Vaccine (1 - Tdap) [facility] Start: 1955 Depression Screening Depression Scre ening [facility] Start: 1953 COVID-19 Vaccine (1 of 2) COVI D-19 Vaccine (1 of 2) [place] Start: 1949 COVID-19 Vaccine (1) COVID-19 Vaccin e (1) [facility] Work Phone: Start: 1948 DTaP/Tdap/Td vaccine (1 - Tdap) DTaP/Tdap/Td vaccine (1 - Tdap) [place] Start: 02-07-1936 Covid-19 Vaccine (#1) Covid-19 Vacci ne (#1) [facility] Bacteria identified in Blood by Culture [facility] Bacteria identified in Urine by Culture [facility] Bacteria identified in Urine by Culture URINE CULTURE Microbiology Routine Nephrolithiasis Ordered: 07/28/2024 [facility] Work Phone: Comment on above: Ordered: 07/28/2024 CBC auto differential CBC auto d ifferential Lab Routine Daily until discontinued starting 04/05/2020, 2 completed [place] Comment on above: Daily until disconti nued starting 04/05/2020, 2 completed Comprehensive metabo lic 2000 panel Comprehensive metabolic panel Lab Routine Daily until discontinued starting 04/05/2020, 2 completed [place] Comment on above: Daily until disconti nued starting 04/05/2020, 2 completed End: 01-06-2025 CT Abdomen and Pelvis WO contrast CT FLANK WO IVCON Radiology STAT Nephrolithiasis 1 Occurrences starting 12/08/2023 until 01/06/2025 [facility] Work Phone: Comment on above: 1 Occurrences starti ng 12/08/2023 until 01/06/2025 Culture, Anaerobic a nd Aerobic Culture, Anaerobic and Aerobic Microbiology Routine 05/10/2020 1:31 PM EDT [place], [place] Culture, Blood 1 [place], [place] End: 04-10-2020 Culture, Urine Culture, Urine Microbiology Routine Once for 1 Occurrences starting 04/10/2020 until 04/10/2020 [place] Comment on above: Once for 1 Occurrenc es starting 04/10/2020 until 04/10/2020 Culture, Urine [place] End: 05-08-2020 Culture, Urine Culture, Urine Microbiology Routine Once for 1 Occurrences starting 05/08/2020 until 05/08/2020 [place] Comment on above: Once for 1 Occurrenc es starting 05/08/2020 until 05/08/2020 End: 08-09-2020 Culture, Urine Culture, Urine Microbiology Routine Once for 1 Occurrences starting 08/09/2020 until 08/09/2020 [place] Comment on above: Once for 1 Occurrenc es starting 08/09/2020 until 08/09/2020 End: 08-27-2020 Culture, Urine Culture, Urine Microbiology Routine Once for 1 Occurrences starting 08/27/2020 until 08/27/2020 [place] Comment on above: Once for 1 Occurrenc es starting 08/27/2020 until 08/27/2020 Culture, Wound [place] Hemoglobin and Hematocrit, Blood, Post Transfusion Hemoglobin and Hematocrit, Blood, Post Transfusion Lab Routine Post Transfusion Post Transfusion Post Transfustion for 1 Occurrences starting 05/14/2020 [place] Comment on above: Post Transfusion Pos t Transfusion Post Transfustion for 1 Occurrences starting 05/14/2020 Initiate Oxygen Ther apy Protocol Initiate Oxygen Therapy Protocol Respiratory Care Routine Daily until discontinued starting 04/03/2020 [place] Comment on above: Daily until disconti nued starting 04/03/2020 End: 08-11-2019 Iron and TIBC Iron and TIBC Lab Routine Once for 1 Occurrences starting 08/11/2019 until 08/11/2019 [place] Comment on above: Once for 1 Occurrenc es starting 08/11/2019 until 08/11/2019 Iron and TIBC Iron and TIBC La b Routine 08/11/2019 10:35 AM [facility]: [facility]24 Kidney img morphology vascular flow 1 w/rx NM RENAL FLOW/FXN W PHARM Radiology Routine Hydronephrosis with urinary obstruction due to renal calculus 1 Occurrences starting 09/08/2023 until 10/07/2024 [facility] Work Phone: Comment on above: 1 Occurrences starti ng 09/08/2023 until 10/07/2024 Oxygen therapy [[facility] Data Set] Initiate Oxygen Therapy Protocol Respiratory Care Routine Daily until discontinued starting 05/11/2020 [facility] Comment on above: Daily until disconti nued starting 05/11/2020 PREPARE RBC (CROSSMA TCH), 1 Units PREPARE RBC (CROSSMATCH), 1 Units Blood Bank Non-Stat 05/14/2020 8:58 AM EDT [facility] Transfuse erythrocyt es [Vol] Transfuse RBC Nursing Transfusion Routine 05/14/2020 11:30 AM EDT [facility], REFLEX MICROSCOPIC URINALYSIS, REFLEX MICROSCOPIC Lab Routine Screening for genitourinary condition Ordered: 12/06/2023 [facility] Work Phone: Comment on above: Ordered: 12/06/2023 Urine culture [facility] End: 01-05-2025 US Kidney - bilateral and Urinary bladder US KIDNEY/BLADDER Radiology Routine Nephrolithiasis 1 Occurrences starting 12/06/2023 until 01/05/2025 [facility] Work Phone: Comment on above: 1 Occurrences starti ng 12/06/2023 until 01/05/2025 End: 08-27-2025 US Kidney - bilateral and Urinary bladder US KIDNEY/BLADDER Radiology Routine Nephrolithiasis Renal cyst 1 Occurrences starting 07/28/2024 until 08/27/2025 [facility] Comment on above: 1 Occurrences starti ng 07/28/2024 until 08/27/2025 End: 01-04-2025 XR Abdomen GE 3 Views AP and Oblique and Cone XR ABDOMEN 3V KUB W/OBLIQUES Radiology Routine Nephrolithiasis 1 Occurrences starting 12/06/2023 until 01/04/2025 [facility] Work Phone: Comment on above: 1 Occurrences starti ng 12/06/2023 until 01/04/2025 End: 08-27-2025 XR Abdomen GE 3 Views AP and Oblique and Cone XR ABDOMEN 3V KUB W/OBLIQUES Radiology Routine Nephrolithiasis 1 Occurrences starting 07/28/2024 until 08/27/2025 [facility] Comment on above: 1 Occurrences starti ng 07/28/2024 until 08/27/2025 [facility] Payers Date Payer Category Payer Self-pay 2023 Medicaid MEDICAID [facility] MEDICAID [id number] 2023-Present [phone] [address] [place] [address] Medicaid [id number] 2023 Unknown [id number] 2022 Medicaid [id number] [id number] 2020 Unknown 2017 Medicare BS MEDICARE AN THEM MEDIBLUE ESSENTIAL/PLUS xxxxxxxxxxxx 2017-Present [address] [address] [place] [address] xxxxxxxxxxxx [id number] 2017 Medicare BCBS MEDICARE AN THEM MEDIBLUE ESSENTIAL/PLUS [id number] 2017-Present [address] [address] [place] [address] [id number] .[id number] 2002 Medicare 2002 Medicare [id number] 2.16.840.1.508581.19 1959 Medicare [id number] 1.2.840.591467.1.13.239.2.7.3 .[id number] 1937 Unknown [id number] 2.16.840.1.148712.3.579.2.93 1937 Unknown [id number] 2.16.840.1.448595.3.579.2.196 1937 Unknown [id number] 2.16.840.1.648075.3.579.2.593 1937 Unknown [id number] 2.16.840.1.167648.3.579.2.173 1937 Unknown [id number] 2.16.840.1.733936.3.579.2.173 1937 Unknown [id number] 2.16.840.1.916875.3.579.2.173 1937 Unknown [id number] 2.16.840.1.785581.3.579.2.173 1937 Unknown [id number] 2.16.840.1.012054.3.579.2.173 1937 Unknown [id number] 2.16.840.1.061635.3.579.2.173 1937 Unknown [id number] 2.16.840.1.753816.3.579.2.173 1937 Unknown [id number] 2.16.840.1.173084.3.579.2.173 1937 Unknown [id number] 2.16.840.1.131693.3.579.2.173 1937 Unknown [id number] 2.16.840.1.595796.3.579.2.173 1937 Unknown [id number] 2.16.840.1.839675.3.579.2.727 1937 Unknown [id number] 2.16.840.1.706103.3.579.2.727 1937 Unknown [id number] 2.16.840.1.233650.3.579.2.125 9 1937 Unknown [id number] 2.16.840.1.627653.3.579.2.125 9 1937 Unknown [id number] 2.16.840.1.854149.3.579.2.125 9 1937 Unknown [id number] 2.16.840.1.195879.3.579.2.125 9 1937 Unknown [id number] 2.16.840.1.563229.3.579.2.125 9 1937 Unknown [id number] 2.16.840.1.441798.3.579.2.125 9 1937 Unknown [id number] 2.16.840.1.982192.3.579.2.125 9 1937 Unknown [id number] 2.16.840.1.263928.3.579.2.134 7 Unknown [id number] 2.16.840.1.237618.3.579.2.531 Social History Date Type Detail Facility Start: 09-27-2017 End: 09-09-2023 Tobacco smoking status PAIS Never smoker [facility] Start: 09-27-2017 End: 09-12-2020 Alcohol intake Current non-drinker of alcohol (finding) [facility] [place] Start: 1935 Sex Assigned At Not on file [facility] [place] Exposure to SARS-CoV-2 (event) Unable to assess [facility] [place] Start: 04-03-2020 End: 09-07-2023 Tobacco use and exposure Never used [facility] [place] Exposure to SARS-CoV-2 (event) Not sure [facility] [place] Exposure to SARS-CoV-2 (event) Yes [facility] [place] Start: 09-07-2023 End: 12-06-2023 Sex Assigned At [facility] [place] Other Start: 1935 Sex Assigned At Female F [facility] Start: 09-07-2023 End: 12-06-2023 History of Social function [facility] National Score (1-100), lower number is lower risk 63 [facility] Start: 12-06-2023 Alcohol intake Lifetime non-d denise (finding) [facility] Start: 08-16-2024 Sex Female (finding) [facility] Medical Equipment Procedure Code Equipment Code Equipment Origin al Text Equipment Identifier Dates Impl Hip Cover T hr Hole Med Demand [id number] Start: 05-10-2020 Impl Hip Screw Redapt Lk 30mm [id number] Start: 05-10-2020 Impl Hip Screw Redapt Lk 40mm [id number] Start: 05-10-2020 Impl Hip Screw Redapt Lk 30mm [id number] Start: 05-10-2020 Impl Hip Acet Li ner R3 0 Deg 36 X 52 [id number] Start: 05-10-2020 Redapt Modular- Ackerman/Nephew 93_imp Start: 05-10-2020 Impl Hip Fem Com p Redapt 240mm Sz 15 [id number] Start: 05-10-2020 Impl Hip Fem Hea d Coblt Chrome 12to14 3 [id number] Start: 05-10-2020 Stent Inlay Opti ma 7fr Taper [place] Green Polymer Phreecoat 24cm Ureteral - [id number] Start: 10-18-2023 Clinical Notes 05-26-2023 to 07-28-2024 Patient InstructionsMark Cesar PA-C - 07/28/2024 3:09 PM EDTTelephone Encounter - Moni Chaudhari RN - 02/17/2024 11:06 AM EDTTelephone Encounter - Moni Chaudhari RN - 02/17/2024 11:06 AM EDT Note Date & Type Note Facility 07-28-2024 Instructions Mark Cesar PA-C - 07/28/2024 3:27 PM EDT Please follow up in about 1 year with LAKESHIA HERNÁNDEZ documented in this encounter [facility] 07-28-2024 Note HNO ID: [id number] Author: MARK CESAR PA-C Service: ? Author Type: Physician Sand Mixer Operator Type: Progress Notes Filed: 08/02/2024 19:03 Note Text: UROLOGY NOTE Chief complaint: kidney stones Jesús Nolan is a 88 year old female who presents today for kidney stone management and prevention counseling. Interval hx December 06, 2023 s/p L miniPCNL w/ Dr. Garland on 10/18/23. CaP, struvite. She completed US and KUB today, the former showing mild/moderate left hydro despite no apparent stone (staghorn stone no longer visualized). She denies any pain on that side. Litholink 24-hour urine collection was sent off three days ago, so results not yet available. - Reviewed US and KUB showing no further L renal stones but noted hydronephrosis - Consider CT scan for further assessment of stone fragment vs stricture; will reach out to Dr. Garland to confirm - Litholink sent off, and we can review results in a couple weeks. - Plan for eventual US and KUB in about 6 months for reassessment Interval hx July 28, 2024 Patient returns to clinic having completed new US and KUB showing seemingly small stones bilaterally, especially when assessing CT scan earlier this year. Daughter does voice concern about possible beginning UTI due to seeming hallucination recently, which has been a previous sign. There is no height or weight on [...] gel HYDROcodone-Acetaminophen (NORCO) 10-325 mg per tablet lactulose 10 gram/15 mL solution HIGH POTENCY MULTIVITAMIN 400 mcg estradiol (ESTRACE) 0.01 % (0.1 mg/gram) vaginal cream Use 1 g vaginally one time a week. tamsulosin (FLOMAX) 0.4 mg Take 1 capsule by mouth once daily. 30 minutes after the same meal each day. No current facility-administered medications on file prior to visit. ALLERGIES No Known Allergies Results Only on 12/03/2023 Component Date Value Ref Range Status CYSTINE, URINE, QUALITATIVE 12/03/2023 Neg Negative Final URINE VOLUME (PRESERVED) 12/03/2023 1,050 500 - 4,000 mL/24 hr Final CALCIUM OXALATE SATURATION 12/03/2023 10.39 (H) 6.00 - 10.00 Final CALCIUM, URINE 12/03/2023 100 <200 mg/24 hr Final OXALATE, URINE 12/03/2023 39 20 - 40 mg/24 hr Final CITRATE, URINE 12/03/2023 109 (L) >550 mg/24 hr Final CALCIUM PHOSPHATE SATURATION 12/03/2023 0.72 0.50 - 2.00 Final PH, 24 HR, URINE 12/03/2023 5.978 5.800 - 6.200 Final URIC ACID SATURATION 12/03/2023 0.57 <1.00 Final URIC ACID, URINE 12/03/2023 285 <750 mg/24 hr Final SODIUM, URINE 12/03/2023 77 50 - 150 mmol/24 hr Final POTASSIUM, URINE 12/03/2023 56 20 - 100 mmol/24 hr Final MAGNESIUM, URINE 12/03/2023 80 30 - 120 mg/24 hr Final PHOSPHORUS, URINE 12/03/2023 489 (L) 600 - 1,200 mg/24 hr Final AMMONIUM, URINE 12/03/2023 12 (L) 15 - 60 mmol/24 hr Final CHLORIDE, URINE 12/03/2023 82 70 - 250 mmol/24 hr Final SULFATE, URINE 12/03/2023 23 20 - 80 meq/24 hr Final UREA NITROGEN, URINE 12/03/2023 7.16 6.00 - 14.00 g/24 hr Final PROTEIN CATABOLIC RATE 12/03/2023 0.9 0.8 - 1.4 g/kg/24 hr Final CREATININE, URINE 12/03/2023 747 Not Applic. mg/24 hr Final CREATININE/KG BODY WEIGHT 12/03/2023 12.5 8.7 - 20.3 mg/24 hr/kg Final CALCIUM/KG BODY WEIGHT 12/03/2023 1.7 <4.0 mg/24 hr/kg Final CALCIUM/CREATININE RATIO 12/03/2023 134 51 - 262 mg/g creat Final COMMENT 12/03/2023 Note Final Images: US and KUB 06/29/24 (external) reviewed. CT 01/28/24 (external): Assessment/Plan: Encounter Diagnosis ICD-10-CM 1. Nephrolithiasis N20.0 URINE CULTURE US KIDNEY/BLADDER XR ABDOMEN 3V KUB W/OBLIQUES 2. Renal cyst N28.1 US KIDNEY/BLADDER - Reviewed KUB and U (more content not included)... [facility] 07-28-2024 History of Presen t illness Narrative Images from the original note were not included. UROLOGY NOTE Chief complaint: kidney stones Jesús Nolan is a 88 year old female who presents today for kidney stone management and prevention counseling. Interval hx December 06, 2023 s/p L miniPCNL w/ Dr. Garland on 10/18/23. CaP, struvite. She completed US and KUB today, the former showing mild/moderate left hydro despite no apparent stone (staghorn stone no longer visualized). She denies any pain on that side. Litholink 24-hour urine collection was sent off three days ago, so results not yet available. - Reviewed US and KUB showing no further L renal stones but noted hydronephrosis - Consider CT scan for further assessment of stone fragment vs stricture; will reach out to Dr. Garland to confirm - Litholink sent off, and we can review results in a couple weeks. - Plan for eventual US and KUB in about 6 months for reassessment Interval hx July 28, 2024 Patient returns to clinic having completed new US and KUB showing seemingly small stones bilaterally, especially when assessing CT scan earlier this year. Daughter does voice concern about possible beginning UTI due to seeming hallucination recently, which has been a previous sign. There is no height or weight on [...] gel HYDROcodone-Acetaminophen (NORCO) 10-325 mg per tablet lactulose 10 gram/15 mL solution HIGH POTENCY MULTIVITAMIN 400 mcg estradiol (ESTRACE) 0.01 % (0.1 mg/gram) vaginal cream Use 1 g vaginally one time a week. tamsulosin (FLOMAX) 0.4 mg Take 1 capsule by mouth once daily. 30 minutes after the same meal each day. No current facility-administered medications on file prior to visit. ALLERGIES No Known Allergies Results Only on 12/03/2023 Component Date Value Ref Range Status CYSTINE, URINE, QUALITATIVE 12/03/2023 Neg Negative Final URINE VOLUME (PRESERVED) 12/03/2023 1,050 500 - 4,000 mL/24 hr Final CALCIUM OXALATE SATURATION 12/03/2023 10.39 (H) 6.00 - 10.00 Final CALCIUM, URINE 12/03/2023 100 <200 mg/24 hr Final OXALATE, URINE 12/03/2023 39 20 - 40 mg/24 hr Final CITRATE, URINE 12/03/2023 109 (L) >550 mg/24 hr Final CALCIUM PHOSPHATE SATURATION 12/03/2023 0.72 0.50 - 2.00 Final PH, 24 HR, URINE 12/03/2023 5.978 5.800 - 6.200 Final URIC ACID SATURATION 12/03/2023 0.57 <1.00 Final URIC ACID, URINE 12/03/2023 285 <750 mg/24 hr Final SODIUM, URINE 12/03/2023 77 50 - 150 mmol/24 hr Final POTASSIUM, URINE 12/03/2023 56 20 - 100 mmol/24 hr Final MAGNESIUM, URINE 12/03/2023 80 30 - 120 mg/24 hr Final PHOSPHORUS, URINE 12/03/2023 489 (L) 600 - 1,200 mg/24 hr Final AMMONIUM, URINE 12/03/2023 12 (L) 15 - 60 mmol/24 hr Final CHLORIDE, URINE 12/03/2023 82 70 - 250 mmol/24 hr Final SULFATE, URINE 12/03/2023 23 20 - 80 meq/24 hr Final UREA NITROGEN, URINE 12/03/2023 7.16 6.00 - 14.00 g/24 hr Final PROTEIN CATABOLIC RATE 12/03/2023 0.9 0.8 - 1.4 g/kg/24 hr Final CREATININE, URINE 12/03/2023 747 Not Applic. mg/24 hr Final CREATININE/KG BODY WEIGHT 12/03/2023 12.5 8.7 - 20.3 mg/24 hr/kg Final CALCIUM/KG BODY WEIGHT 12/03/2023 1.7 <4.0 mg/24 hr/kg Final CALCIUM/CREATININE RATIO 12/03/2023 134 51 - 262 mg/g creat Final COMMENT 12/03/2023 Note Final Images: US and KUB 06/29/24 (external) reviewed. CT 01/28/24 (external): Assessment/Plan: Encounter Diagnosis ICD-10-CM 1. Nephrolithiasis N20.0 URINE CULTURE US KIDNEY/BLADDER XR ABDOMEN 3V KUB W/OBLIQUES 2. Renal cyst N28.1 US KIDNEY/BLADDER - Reviewed KUB and US imaging (as well as previous CT), showing possible bilateral stones / echogenic foci, right likely renal cyst - Urine culture ordered to assess for potential infection - US and KUB ordered for reassessment in 1 year General stone prevention guidelines: Fluid intake - [...] All fluids count but water is best. [place] intake - Recommend increasing dietary citrate intake. [...] your diet without supplements if you eat plrwz-ib-jjzj servings of calcium-rich food. Many foods and [...] acid levels. https://www.urologyhealth.org/ur ology-a-z/k/kidney-stones#Preven tion%20of%20Future%20Stones RTC in 12 months w/ new US and LAKESHIA. Mark Cesar PA-C documented in this encounter [facility] 07-28-2024 Note Patient Outreach (UR OLMN) OVIDIOJESÚS ([id number]) 1935 F Date Time Provider Department 07/28/24 MARK CESAR UROLUCIANA During your visit today, we recorded the following information about you: Allergies As of Date: 07/28/2024 (No Known Allergies) Date Reviewed: 07/28/2024 Reviewed by: Alis Silva OCCA - Fully Assessed Visit Diagnosis:Screening for genitourinary condition [Z13.89] Order(s):URINALYSIS, REFLEX MICROSCOPIC [[id number]] Order #: [id number]. #:[id number] Prescriptions as of 07/31/2024 - cephALEXin (KEFLEX) 500 mg capsule Take 1 capsule by mouth three times a day for 7 days. - acetaminophen (TYLENOL EXTRA STRENGTH) 500 mg [...] a week. 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] 09/07/2023 Essential hypertension [I10] 09/07/2023 Constipation [K59.00] 09/07/2023 Arthritis [M19.90] 09/07/2023 Status post hip surgery [Z98.890] 09/07/2023 Stage 4 chronic kidney disease (HCC) [N18.4] 04/12/2021 Diagnosed: 09/23/2023 Generalized anxiety disorder [F41.1] 09/23/2023 Diagnosed: 09/23/2023 Hallucinations [R44.3] 09/01/2023 Diagnosed: 09/23/2023 Hypokalemia [E87.6] 09/23/2023 Diagnosed: 09/23/2023 Anemia of chronic disease [D63.8] 09/23/2023 Diagnosed: 09/23/2023 Pre-op evaluation [Z01.818] 09/23/2023 Calculus, kidney [N20.0] 10/19/2023 Delirium [R41.0] 10/21/2023 Encounter Status:Closed by [employer] on 07/31/24 [facility] 02-17-2024 Telephone encounter Note Called and spoke [...] steps. Please advise. Thanks, Khushboo [facility] 02-17-2024 Miscellaneous Notes Called and spoke with [...] steps. Please advise. Thanks, Khushboo [facility] documented in this encounter [facility] 01-31-2024 Telephone encounter Note Today we got an outside CT faxed in for Jesús. It is uploaded in her scanned documents. [facility] 01-31-2024 Miscellaneous Notes Today we got an outside CT faxed in for Jesús. It is uploaded in her scanned documents. documented in this encounter [facility] 01-04-2024 Miscellaneous Notes Mailed pt CT orders so they can have done locally when they get apt they will call to schedule VV with Mark Cesar documented in this encounter [facility] 12-08-2023 Miscellaneous Notes Addended by: MARK CESAR [...] 2023 12 PM documented in this encounter [facility] 12-06-2023 Instructions Mark Cesar PA-C - 12/06/2023 2:49 PM EDT documented in this encounter [facility] 12-06-2023 Note HNO ID: [id number] Author: MARK CESAR PA-C Service: ? Author Type: Physician Sand Mixer Operator Type: Progress Notes Filed: 12/07/2023 14:24 Note [...] Monocytes % 10/17/2023 9.5 % Final Abs [place] 10/17/2023 0.68 <0.87 k/uL Final Eosinophils % [...] (H) 74 - 99 mg/dL Final The [place] Diabetes Association (ADA) provides guidance for cutoff [...] Standards of Medical Care in Diabetes 2016, [place] [employer]. Diabetes Care. 2016.39(Suppl 1). BUN [...] Final Calcium, Total (more content not included)... [facility] 12-06-2023 History of Presen t [...] Monocytes % 10/17/2023 9.5 % Final Abs [place] 10/17/2023 0.68 <0.87 k/uL Final Eosinophils % [...] (H) 74 - 99 mg/dL Final The [place] Diabetes Association (ADA) provides guidance for cutoff [...] Standards of Medical Care in Diabetes 2016, [place] [employer] Association. Diabetes Care. 2016.39(Suppl 1). BUN [...] with VKA drugs, such as warfarin, the [place] [employer] 2012 Guideline recommends [...] Chest 2012, 141:7S-47S Shital RA, et al. [facility] 2017, 70: 252-289 WBC 10/18/2023 18.32 [...] (H) 74 - 99 mg/dL Final The [place] Diabetes Association (ADA) provides guidance for cutoff [...] Standards of Medical Care in Diabetes 2016, [place] [employer]. Diabetes Care. 2016.39(Suppl 1). BUN [...] developed and its performance characteristics determined by [facility]'s [facility] [place] ([facility]). It has not been cleared or approved by the FDA. -[facility] is regulated under CLIA as qualified to perform high-complexity testing. This test is used for clinical purposes. It should not be regarded as investigational or for research. Glucose 10/19/2023 131 (H) 74 - 99 mg/dL Final The [place] Diabetes Association (ADA) provides guidance for cutoff [...] Standards of Medical Care in Diabetes 2016, [place] [employer]. Diabetes Care. 2016.39(Suppl 1). BUN [...] Monocytes % 10/19/2023 8.7 % Final Abs [place] 10/19/2023 1.09 (H) <0.87 k/uL Final Eosinophils [...] 92 74 - 99 mg/dL Final The [place] Diabetes Association (ADA) provides guidance for cutoff [...] Standards of Medical Care in Diabetes 2016, [place] [employer]. Diabetes Care. 2016.39(Suppl 1). BUN [...] (H) 74 - 99 mg/dL Final The [place] Diabetes Association (ADA) provides guidance for cutoff [...] Standards of Medical Care in Diabetes 2016, [place] Diabetes Association. Diabetes Care. 2016.39(Suppl 1). BUN [...] All fluids count but water is best. [place] intake - Recommend increasing dietary citrate intake. [...] your diet without supplements if you eat gexlx-zm-gbxj servings of calcium-rich food. Many foods and [...] which included preparing to see the patient, dvqo-bg-lygn patient care, completing clinical documentation, obtaining and/or reviewing separately obtained history, counseling and educating the patient/family/caregiver, ordering medications, tests, or procedures, and communicating results to the patient/family/caregiver. Mark Cesar PA-C documented in this encounter [facility] 12-06-2023 History of Presen t illness [...] PATIENT PRESENTS WITH AN IMPLANTABLE OR ATTACHED PHARMACY TECHNOLOGIST: No RADIOLOGY DEPARTMENT: General X-ray: Exam(s) Completed: Abdomen X-Ray: Abdomen with Obliques PERIPHERAL IV DATA: Not applicable SIGNED BY: SABINO Mosquera) December 06, 2023 1:47 PM documented in this encounter [facility] 12-06-2023 Note HNO ID: [id number] Author: STAR CANALES RT(R) Service: ? Author [...] PATIENT PRESENTS WITH AN IMPLANTABLE OR ATTACHED PHARMACY TECHNOLOGIST: No RADIOLOGY DEPARTMENT: General X-ray: Exam(s) Completed: Abdomen X-Ray: Abdomen with Obliques PERIPHERAL IV DATA: Not applicable SIGNED BY: SABINO Mosquera) December 06, 2023 1:47 PM [facility] 12-06-2023 Note Patient Outreach (UR OLMN) JESÚS NOLAN ([id number]) 1935 F Date Time Provider Department 12/06/23 MARK CESAR During your visit today, we recorded the following information about you: Allergies As of Date: 12/06/2023 (No Known Allergies) Date Reviewed: 12/06/2023 Reviewed by: Kya Rodriguez OCCA - Fully Assessed Visit Diagnosis:Screening for genitourinary condition [Z13.89] Order(s):URINALYSIS, REFLEX MICROSCOPIC [[id number]] Order #: [id number]. #:[id number] Prescriptions as of 12/09/2023 - acetaminophen (TYLENOL [...] 10/19/2023 Delirium [R41.0] 10/21/2023 Encounter Status:Closed by [employer], PRODUSER on 12/09/23 [facility] 10-27-2023 Note HNO ID: [id number] Author: RICCO GARLAND MD Service: ? Author [...] Ricco Garland MD Director, Surgical Stone Disease [facility] [place], [facility] Pager [phone] 10/27/2023 [facility] 10-27-2023 Note HNO ID: [id number] Author: CHRISTA FLANAGAN RN Service: ? Author [...] Visit completed when applicable. Christa Flanagan RN [facility] 10-21-2023 Note HNO ID: [id number] Author: JACOB PALMER MD Service: Urology Author Type: Resident Type: Progress Notes Filed: 10/21/2023 06:46 Note Text: [facility] UROLOGY PROGRESS NOTE Name: Jesús Nolan Bed: G090 [id number] Date: 10/21/2023 After Hours [facility] [place] [facility] Service Pager: [phone] ASSESSMENT Jesús Nolan is a 88 year [...] physician Dr Dada Esteves MD Urology PGY2 [facility] [place] For weekend or after hours issues [place] [phone] Active Problems Anemia of chronic disease, POA- [...] 1.91* GLUC 92 131* 197* Imaging Reviewed [facility] 10-20-2023 Note HNO ID: [id number] Author: LORENA PRESTON RPh Service: Pharmacy Author [...] [facility] Phone: [phone] Serum creatinine: 2.02 mg/dL (H) 10/19/23 0615 [...] Medications These medications were sent to e- [facility]/pharmacy [address] [phone] [place] [address] amoxicillin 250 mg capsule tamsulosin 0.4 mg You can get these medications from any pharmacy You don't need a prescription for these medications acetaminophen 500 mg tablet [facility] 10-20-2023 Note HNO ID: [id number] Author: RICCO GARLAND MD Service: Urology Author [...] Garland MD, FACS Director, Surgical Stone Disease, [facility] [place] director information security, [facility] Pager [phone] 10/20/2023 [facility] 10-20-2023 Note HNO ID: [id number] Author: YESSICA LEE, [place] Service: Pharmacy Author Type: Feller Buncher Operator Type: Plan of Care Filed: 10/20/2023 08:37 Note Text: Insurance investigation completed Patient has active prescription insurance: Yes - Patient's insurance is in-network with [facility] Insurance loaded into [place]: Yes Test claim was completed to verify insurance is active: Successful Any questions, please contact your medication accessioner. Pager #: [phone] [facility] 10-20-2023 Note HNO ID: [id number] Author: RICCO GARLAND MD Service: Urology Author [...] mental status. Her stone came back infected (xlgpmmizd-nxdkhycf-pdalpbien) and even though there are no other signs of sepsis at this time, we need to watch for this as well. Ricco Garland MD, FACS Director, Surgical Stone Disease, [facility] [place] director information security, [facility] Pager [phone] 10/20/2023 [facility] 10-20-2023 Note HNO ID: [id number] Author: JACOB PALMER MD Service: Urology Author Type: Resident Type: Progress Notes Filed: 10/20/2023 06:56 Note Text: [facility] [place] UROLOGY PROGRESS NOTE Name: Jesús Nolan Bed: G090 [id number] Date: 10/20/2023 After Hours [facility] Urology Service Pager: [phone] ASSESSMENT Jesús Nolan is a 88 year [...] DC Today Discussed with attending physician Dr Ddaa Esteves MD [facility]rology PGY2 [facility] [place] For weekend or after hours issues [place] [phone] Active Problems Anemia of chronic disease, POA- [...] 2.11* GLUC 131* 197* 129* Imaging Reviewed [facility] 10-19-2023 Note HNO ID: [id number] Author: SERG ROTH LSW Service: Care Management Author Type: Craft Demonstrator Type: Care Mgt Initial Assessment Filed: 10/19/2023 16:08 Note Text: CARE MANAGEMENT: ASSESSMENT AND DISCHARGE PLAN SERVICE DATE: October 19, 2023 SERVICE TIME: 4:04 PM PCP: Brina Cordero MD Primary Contact: Extended Emergency Contact Information Primary Emergency Contact: [facility]ANDA [facility] Mobile Relation: Daughter Admission Status: Observation Insurance Provider: MEDICARE A AND B Discharge Planning requested by: Per Department Practice Potential Transition Plans Halfway/Supervised Living Advance Directives Current Advance Directive: None Director Of Clinical Trials Attempted to Assist with AD Completion: Yes Action: Education Provided Current Living Arrangements and Support Lives with: Other person(s) Assisted Living Type of Residence: Assisted Living Facility [facility] [phone] Support: Family members How do you manage to accomplish the following: Needs Assistance: Ambulation;Bathe/Shower;Dress;Me als/Meal Prep;Going to the bathroom;Medication Management;Transportation to appointments/community Current Services/Equipment Current Post-Acute Service(s): None Discharge Planning Patient Goal(s): Be able to go home, General wellness [place] of Choice Explained: [place] of Choice Given: No Reason Not Given: No placements necessary Are you interested in bedside delivery of your medications? Yes Discharge Planning Participant(s): Patient;Family Patient/Family Comments: Dtr completed assessment. Pt is extremely [place] Caregiver Assessment: Caregiver is ready, willing and able to meet the patient's needs as recommended by the inter-professional team: Yes Transport at Discharge: Transportation Arrangements: Car Needs Prior to Discharge: Needs Prior to Discharge: None Post-Acute Discharge Plan: Chart reviewed and initial assessment completed. Met with pt at bedside. Pt is very [place]. Vision is limited as well. She gave permission to speak with her dtr, Maranda. Call placed to Maranda. Pt lives in at [facility] ([phone]). The assisted living assists with meals, meds, and some personal care as needed. Plan is to return to assisted living at pr. Dtr will transport. Call placed to [facility]. Spoke with Mahsa in admissions. She [...] 19, 2023 TIME: 4:04 PM CONTACT #: [phone] [facility] 10-19-2023 Note HNO ID: [id number] Author: JACOB PALMER MD Service: Urology Author Type: Resident Type: Progress Notes Filed: 10/19/2023 06:55 Note Text: [facility] UROLOGY PROGRESS NOTE Name: Jesús Nolan Bed: G090 033/[id number] Date: 10/19/2023 After Hours Main [place] [facility] Service Pager: [phone] ASSESSMENT Jesús Nolan is a 88 year [...] physician Dr Dada Esteves MD Urology PGY2 [facility] [place] For weekend or after hours issues [place] [phone] Active Problems Anemia of chronic disease, POA- [...] 2.11* GLUC -- 197* 129* Imaging Reviewed [facility] 10-18-2023 Note HNO ID: [id number] Author: JACOB PALMER MD Service: Urology Author Type: Resident Type: Progress Notes Filed: 10/18/2023 18:13 Note Text: [facility] UROLOGY PROGRESS NOTE Name: Jesús Nolan Bed: G090 033/G090-33 Date: 10/18/2023 After Hours Main [place] [facility] Service Pager: [phone] ASSESSMENT Jesús Nolan is a 88 year [...] physician Dr Dada Esteves MD [facility]rology PGY2 [facility] [place] For weekend or after hours issues [place] [phone] Active Problems Anemia of chronic disease, POA- [...] 30* CREAT 2.11* GLUC 129* Imaging Reviewed [facility] 10-18-2023 Note HNO ID: [id number] Author: JON CERDA SRNA Service: ? Author [...] October 18, 2023 TIME: 8:33 AM CSN: [id number] [facility] 10-18-2023 Note HNO ID: [id number] Author: JON CERDA SRNA Service: ? Author [...] October 18, 2023 TIME: 8:32 AM CSN: [id number] [facility] 10-18-2023 Note HNO ID: [id number] Author: JON CERDA SRNA Service: ? Author [...] Successful intubation technique: video laryngoscopy Devices used: [employer] Endotracheal tube insertion site: oral Blade size: #3 ETT size (mm): 7.0 Measured from: gums Measurement (cm): 20 Cormack-Lehane Classification: grade I - full view of glottis Number of attempts at approach: 1 Failed airway: no Unrecognized esophageal intubation: no Airway not difficult SIGNATURE: CHANDA Carias PATIENT NAME: Jesús Nolan DATE: October 18, 2023 TIME: 8:27 AM CSN: [id number] [facility] 10-17-2023 Note HNO ID: [id number] Author: RONEL JUAN RN Service: Nursing Author [...] maranda and son in law at bedside. [facility] 10-17-2023 Note HNO ID: [id number] Author: RONEL JUAN RN Service: Nursing Author Type: Registered Nurse Type: Progress Notes Filed: 10/17/2023 11:01 Note Text: [place] [phone] Urology: Jesús Nolan G90/33 patient is here as a direct admit. Awaiting orders. Ronel Juan RN [facility] 09-09-2023 Evaluation note Encounter Date Diagnosis Assessment Notes Aug, Acute UTI (ICD-10 - N39.0) Finish antibiotic prescribed at [facility]. Aug, Staghorn calculus (ICD-10 - N20.0) Plan per surgeon in [place] - has appt for preoperative testing Aug, Obstructive uropathy (ICD-10 - N13.9) Aug, Metabolic encephalopathy (ICD-10 - G93.41) improved on proper antibiotics Aug, CKD (chronic kidney disease) stage 4, GFR 15-29 ml/min (ICD-10 - N18.4) stable, has televisit with her [place] Hardware Installer in near future. [employer] Other 12-12-2023 NoteHNO ID: [id number] Author: Ricco Garland MD Service: ? Author [...] hardly hear me. Though not listed in [facility], patient's daughter indicates Dr. Harsh Clayton [...] based on size, location, hounsfield units and flsi-kz-vlnjn distance: 0% 3. Ureteroscopy - risks of [...] with more than 50% of the total arck-ik-vfpi time of the visit devoted to patient counseling/coordination of care. Ricco Garland MD, FACS Director, Surgical Stone Disease, [facility] [place] director information security, [facility] Pager [phone] 09/07/2023[facility]12-12-2023 NotePatient Outreach (UROLMN) JESÚS NOLAN ([id number]) 1935 F Date Time Provider Department 09/07/23 RICCO GARLAND During your visit today, we recorded the following information about you: Allergies As of Date: 09/07/2023 (No Known Allergies) Date Reviewed: 09/07/2023 Reviewed by: Karen Calvillo OCCA - Fully Assessed Visit Diagnosis:Screening for genitourinary condition [Z13.89] Order(s):URINALYSIS, REFLEX MICROSCOPIC [[id number]] Order #: [id number]. #:[id number] Prescriptions as of 09/10/2023 - VITAMIN C [...] hip surgery [Z98.890] 09/07/2023 Encounter Status:Closed by [employer] on 09/10/23[facility] 06-11-2023 Evaluation note* Encounter Date Diagnosis Assessment Notes Treatment Notes Treatment Clinical Notes May, Bilateral impacted cerumen (ICD-10 - H61.23) [facility] Other 08-30-2023 Evaluation note* Encounter Date Diagnosis [...] chronic disease (ICD-10 - D63.8) As above. [facility] Other Evaluation noteNo InformationNort My[employer] Other Evaluation note* Diagnosis Onset Date Resolution Status Acute metabolic encephalopathy acute PRESTON (acute kidney injury) ac debi Constipation acute Dementia acute Hallucinations acute Hypertension acute Right nephrolithiasis acute Staghorn calculus acute UTI (urinary tract infection) acute [facility] Work Phone: Evaluation note* Diagnosis Hydronephrosis with urinary obstruction due to renal calculus- Primary Nephrolithiasis Calculus of kidney documented in this encounter [facility] note* Diagnosis Nephrolithiasis- Primary Calculus of kidney Nephrolithiasis Calculus of kidney documented in this encounter [facility] note* Diagnosis Nephrolithiasis Calculus of kidney documented in this encounter [facility] note* Diagnosis Nephrolithiasis Calculus of kidney documented in this encounter [facility] note* Diagnosis Nephrolithiasis- Primary Calculus of kidney Hydronephrosis, unspecified hydronephrosis type documented in this encounter [facility] note* Diagnosis Nephrolithiasis- Primary Calculus of kidney documented in this encounter [facility] note* Diagnosis Screening for genitourinary condition Screening for other and unspecified genitourinary condition documented in this encounter [facility] noteNo assessment [facility] Work Phone: Evalutczob note* Diagnosis Pre-op evaluation- Primary Preoperative examination, unspecified Essential hypertension Unspecified essential hypertension Stage 4 chronic kidney disease (HCC) Generalized anxiety disorder Anemia of chronic disease Anemia of other chronic disease Constipation, unspecified constipation type Screening for genitourinary condition Screening for other and unspecified genitourinary condition documented in this encounter [facility] note* Diagnosis Pre-op evaluation- Primary Preoperative examination, unspecified Essential hypertension Unspecified essential hypertension Stage 4 chronic kidney disease (HCC) Generalized anxiety disorder Anemia of chronic disease Anemia of other chronic disease Constipation, unspecified constipation type Nephrolithiasis- Primary Calculus of kidney Renal cyst Unspecified congenital cystic kidney disease documented in this encounter [facility] note* Diagnosis Onset Date Resolution Status Admit Date Dysuria acute August 16, 2024 10:50am Fatigue acute August 16, 2024 10:50am Insomnia acute August 16, 2024 10:50am Acute metabolic encephalopathy inact bob August 16, 2024 10:50am [facility] Work Phone: History general Narrative - Reported* [...] History CHOLECYSTECTOMY Hospitalization History SEE SURGICAL HX [place] [facility] Other Reason for referral (narrative)* Diagnostic Procedure Only (Routine) - Pending Review Specialty Diagnoses / Procedures Referred By Megha frederick Referred To Contact MOLECULAR & FUNCTIONAL IMAGING Diagnoses Hydronephrosis with urinary obstruction due to renal calculus Procedures NM RENAL FLOW/FXN W PHARM KIDNEY IMG MORPHOLOGY VASCULAR FLOW 1 W/RX Ricco Garland MD [address] [place] [address] Molecular & Functional Imaging [address] [place] [address] Referral ID Status Reason Start Date Expiration Date Visits Requested Visits Authorized [id number] Pending Review Auto-Generat ed Referral 3 10/07/2024 1 1 [facility] for referral (narrative)* Diagnostic Procedure Only (Routine) - Closed Specialty Diagnoses / Procedures Referred By Megha frederick Referred To Contact XR IMAGING Diagnoses Nephrolithiasis Procedures XR ABDOMEN 3V KUB W/OBLIQUES RADIOLOGIC EXAM ABDOMEN 3+ VIEWS Ricco Garland MD [address] [place] [address] Xr Imaging [place] [address] Referral ID Status Reason Start Date Expiration Date V isits Requested Visits Authorized [id number] Closed Auto-Generate d Referral 10/27/2023 11/25/2024 1 1 [facility] for referral (narrative)* Diagnostic Procedure Only (Routine) - Closed Specialty Diagnoses / Procedures Referred By Contac t Referred To Contact US IMAGING Diagnoses Nephrolithiasis Procedures US KIDNEY/BLADDER US RETROPERITONEAL REAL TIME W/IMAGE COMPLETE Ricco Garland MD [address] [place] [address] [place] [address] Referral ID Status Reason Start Date Expiration Date V isits Requested Visits Authorized [id number] Closed Auto-Generate d Referral 10/27/2023 11/25/2024 1 1 [facility] for referral (narrative)* Diagnostic Procedure Only (Routine) - Authorized Specialty Diagnoses / Procedures Referred By Contac t Referred To Contact XR IMAGING Diagnoses Nephrolithiasis Procedures XR ABDOMEN 3V KUB W/OBLIQUES RADIOLOGIC EXAM ABDOMEN 3+ VIEWS Mark Cesar PA-C [address] [place] [id number] Xr Imaging [facility] Referral ID Status Reason Start Date Expiration Date Visits Requested Visits Authorized [id number] Authorized Auto-Generat ed Referral 12/06/2023 01/04/2025 1 1 * Diagnostic Procedure Only (Routine) - Authorized Specialty Diagnoses / Procedures Referred By Contac t Referred To Contact US IMAGING Diagnoses Nephrolithiasis Procedures US KIDNEY/BLADDER US RETROPERITONEAL REAL TIME W/IMAGE COMPLETE Mark Cesar PA-C [address] [place] [address] [place] [address] Referral ID Status Reason Start Date Expiration Date Visits Requested Visits Authorized [id number] Authorized Auto-Generat ed Referral 12/06/2023 01/04/2025 1 1 [facility] for referral (narrative)* Diagnostic Procedure Only (Routine) - New Request Specialty Diagnoses / Procedures Referred By Contac t Referred To Contact XR IMAGING Diagnoses Nephrolithiasis Procedures XR ABDOMEN 3V KUB W/OBLIQUES RADIOLOGIC EXAM ABDOMEN 3+ VIEWS Mark Cesar PA-C [address] [place] [address] [place] [address] Referral ID Status Reason Start Date Expiration Date Visits Requested Visits Authorized [id number] New Request Auto-Generat ed Referral 07/28/2024 08/27/2025 1 1 * Diagnostic Procedure Only (Routine) - New Request Specialty Diagnoses / Procedures Referred By Megha frederick Referred To Contact US IMAGING Diagnoses Nephrolithiasis Renal cyst Procedures US KIDNEY/BLADDER US RETROPERITONEAL REAL TIME W/IMAGE COMPLETE Mark Cesar PA-C [address] [place] [address] [place] [address] Referral ID Status Reason Start Date Expiration Date Visits Requested Visits Authorized [id number] New Request Auto-Generat ed Referral 07/28/2024 08/27/2025 1 1 [facility] for visit Narrative* Diagnostic Procedure Only (Routine) - Closed Specialty Diagnoses / Procedures Referred By Contdemetrio frederick Referred To Contact US IMAGING Diagnoses Nephrolithiasis Procedures US KIDNEY/BLADDER US RETROPERITONEAL REAL TIME W/IMAGE COMPLETE Ricco Garland MD [address] [place] [id number] Us Imaging [facility] Referral ID Status Reason Start Date Expiration Date V isits Requested Visits Authorized [id number] Closed Auto-Generate d Referral 10/27/2023 11/25/2024 1 1 [facility] Advance Directives Documents on File Type Date Recorded Patient Film Sound Coordinator Expl anation Advance Directives and Living Will Power of Special Assets Officer Documents on File Type Date Recorded Patient Film Sound Coordinator Expl anation Advance Directives and Living Will Power of Special Assets Officer Latest Code Status on File Code Status Date Activated Date Inactivated Comments DNR-CCA 04/05/2020 7:40 AM Full Code 04/02/2020 11:53 PM 04/05/2020 7:40 AM Documents on File Type Date Recorded Patient Film Sound Coordinator Expl anation Advance Directives and Livin g Will Advance Directives and Livin g Will 04/09/2020 4:57 PM Power of Special Assets Officer Power of Special Assets Officer 04/09/2020 4:57 PM Latest Code Status on File Code Status Date Activated Date Inactivated Comments DNR-CCA 04/05/2020 7:40 AM 04/06/2020 2:39 PM Full Code 04/02/2020 11:53 PM 04/05/2020 7:40 AM Documents on File Type Date Recorded Patient Film Sound Coordinator Expl anation ACP-Advance Directive ACP-Advance Directive 04/09/2020 4:57 PM ACP-Power of Special Assets Officer ACP-Power of Special Assets Officer 04/09/2020 4:57 PM DNR Documentation 04/09/2020 4:57 PM Latest Code Status on File Code Status Date Activated Date Inactivated Comments Full Code 05/10/2020 3:57 PM Full Code 05/10/2020 10:16 AM 05/10/2020 3:48 PM DNR-CCA 04/05/2020 7:40 AM 04/06/2020 2:39 PM Documents on File Type Date Recorded Patient Film Sound Coordinator Expl anation ACP-Advance Directive ACP-Advance Directive 04/09/2020 4:57 PM ACP-Do Not Resuscitate 05/16/2020 1:04 PM ACP-Power of Special Assets Officer ACP-Power of Special Assets Officer 04/09/2020 4:57 PM DNR Documentation 04/09/2020 4:57 PM Latest Code Status on File Code Status Date Activated Date Inactivated Comments Full Code 05/10/2020 3:57 PM 05/15/2020 9:57 PM Full Code 05/10/2020 10:16 AM 05/10/2020 3:48 PM DNR-CCA 04/05/2020 7:40 AM 04/06/2020 2:39 PM Documents on File Type Date Recorded Patient Film Sound Coordinator Expl anation ACP-Advance Directive ACP-Advance Directive 04/09/2020 4:57 PM ACP-Advance Directive 06/13/2020 10:59 AM ACP-Do Not Resuscitate 05/16/2020 1:04 PM ACP-Do Not Resuscitate ACP-Do Not Resuscitate 06/13/2020 10:59 AM ACP-Power of Special Assets Officer ACP-Power of Special Assets Officer 04/09/2020 4:57 PM DNR Documentation 04/09/2020 4:57 PM Documents on File Type Date Recorded Patient Film Sound Coordinator Expl anation ACP-Advance Directive ACP-Do Not Resuscitate ACP-Power of Special Assets Officer ACP-Advance Directive 06/13/2020 10:59 AM ACP-Do Not Resuscitate 06/13/2020 10:59 AM ACP-Do Not Resuscitate 05/16/2020 1:04 PM ACP-Advance Directive 04/09/2020 4:57 PM ACP-Do Not Resuscitate 04/09/2020 4:57 PM ACP-Power of Special Assets Officer 04/09/2020 4:57 PM Advance Directive Response Recorded Date/ Time Advance Directives No August 31, 2023 8:19pm Advance Directive Response Recorded Date/ Time Advance Directives No August 31, 2023 9:19pm Reason for Referral Status Reason Specialty Diagnoses / Procedures Referre d By Contact Referred To Contact Open Radiology Diagnoses Chronic kidney disease, stage IV (severe) ([facility]) Procedures US RENAL COMPLETE Ibkameronselena Dilan U, DO Status Reason Specialty Diagnoses / Procedures Referred By Contact Referred To Contact Open Specialty Services Required Physical Therapy Diagnoses General weakness Ricco Sánchez MD [address] [place] [address], [place] [address] Specialty Diagnoses / Procedures Referred By Contac t Referred To Contact CT IMAGING Diagnoses Nephrolithiasis Procedures CT FLANK WO IVCON CT ABD & PELVIS W/O CONTRAST Mark Cesar PA-C [address] [place] [address] [place] [address] Referral ID Status Reason Start Date Expiration Date Visits Requested Visits Authorized [id number] Pending Review Auto-Generat ed Referral 12/08/2023 01/06/2025 1 1 Assessments Diagnosis Chronic kidney disease, stage IV (severe) ([facility]) Chronic kidney disease, Stage IV (severe) Diagnosis Closed displaced intertrochanteric fracture of left femur, initial encounter ([facility]) Diagnosis Pain of left hip joint Diagnosis [...] Care Everywhere. * Hip Fracture: Surgery: Post-op (Singaporean) documented in this encounter* Discharge Instr - [...] most local grocery stores, pharmacies, and chain [email or web address]. ? If you have any questions about [...] Hospital Unit/Room#: 0311/0311-01 Discharging Unit Phone Number: [phone] Emergency Contact: Extended Emergency Contact Information Primary Emergency Contact: Isaias Nolan Address: [address] [place] [address] Relation: Spouse Secondary Emergency Contact: Maranda Da [...] Dependent Dressing Dependent Toileting Dependent Feeding Independent Collect On Delivery Clerk Assisted Med Delivery whole Wound Care Documentation [...] Readmission: 15 Discharging to Facility/ Agency Name: [facility] Address:[address] [place] [address] Dialysis Facility (if applicable) Name: Address: Dialysis Schedule: Phone: Fax: Inspector Air Carrier/Craft Demonstrator signature: PHYSICIAN SECTION Prognosis: {Prognosis:9915635963} Condition at Discharge: {MH Patient Condition:497865217} Rehab Potential (if transferring to Rehab): {Prognosis:9968445404} Recommended Labs or Other Treatments After Discharge: Physician Certification: I certify the above information and transfer of Jesús Nolan is necessary for the continuing treatment of the diagnosis listed and that she requires Correction Facility for greater 30 days. Update Admission H&P: {CHP DME Changes in HandP:635711794} PHYSICIAN SIGNATURE: {Esignature:897079423} documented in this encounter* Discharge Instr - GERALD* Nirmala Lanier, RN - 05/14/2020 2:28 PM EDT Continuity [...] Information Primary Emergency Contact: Isaias Nolan Address: [address] [place] [address] [address] [place] [address] Relation: Spouse Secondary Emergency Contact: Maranda Da Silva Relation: Child Past Surgical History: Past Surgical History: Procedure Laterality Date CHOLECYSTECTOMY HYSTERECTOMY JOINT REPLACEMENT knee REVISION TOTAL HIP ARTHROPLASTY Left 05/10/2020 HARDWARE REMOVAL LEFT HIP, CONVERSION TO LEFT TOTAL HIP performed by Chele Lagos MD at [facility] [place] Immunization History: There is no immunization [...] Assisted Dressing Assisted Toileting Assisted Feeding Independent Collect On Delivery Clerk Assisted Med Delivery whole Wound Care Documentation [...] Readmission: 20 Discharging to Facility/ Agency Name: [facility] Address: [address] [place] [address] Dialysis Facility (if applicable) Name: Address: Dialysis Schedule: Phone: Fax: Inspector Air Carrier/Craft Demonstrator signature: ICIAN SECTION Prognosis: Fair Condition at Discharge: Stable Rehab Potential (if transferring to Rehab): Fair Recommended Labs or Other Treatments After Discharge: n/a Physician Certification: I certify the above information and transfer of Jesús Nolan is necessary for the continuing treatment of the diagnosis listed and that she requires Correction Facility for greater 30 days. Update Admission [...] not made for you at discharge, call [phone] ([place] office) or [phone] ([place] office) to schedule an appointment for 8 [...] Everywhere. * Hip Replacement: Posterior: Precautions: Post-op (Singaporean) * Hip Replacement Surgery: Posterior: Post-op (Singaporean) documented in this encounter* Instructions* Leta Irwin RN - 05/30/2020 Wound Management Patient Discharge Instructions CALL [phone] for questions regarding care of your wounds. [...] in this encounter* Instructions* Mary Newman RD, LEIF - 06/13/2020 Pressure Injuries: Care Instructions Your [...] Put on bandages as your doctor or clinical product specialist says. Keep healthy tissue around the [...] Where can you learn more? Go to [email or web address] and sign in to your [employer] account. Enter F114 in the Search Health Information box to learn more about Pressure Injuries: Care Instructions. If you do not have an account, please click on the Sign Up Now link. Current as of: November 29, 2019 Content Version: 12.5 [employer]. Care instructions adapted under license by [employer]. If you have questions about a medical condition or this instruction, always ask your healthcare professional. [employer] disclaims any warranty or liability for your use of this information. Wound Management Patient Discharge Instructions CALL [phone] for questions regarding care of your wounds. [...] 06/27/2020 Wound Management Patient Discharge Instructions CALL [phone] for questions regarding care of your wounds. [...] 07/18/2020 Wound Management Patient Discharge Instructions CALL [phone] for questions regarding care of your wounds. OFFICE HOURS ARE Tuesdays AND THURSDAYS(9:30) and subject to change without notice PLEASE [...] 09/12/2020 Wound Management Patient Discharge Instructions CALL [phone] for questions regarding care of your wounds. [...] care today! documented in this encounter* Instructions* Lelo Jonesann Semaj RN - 08/15/2020 Wound Management Patient Discharge Instructions CALL [phone] for questions regarding care of your wounds. [...] Note Admission Information Patilamar t: Jesús Cha Ovidio : 1935 Admission [...] know that pt is discharged back to [place]. Voicemail left for to return call. * [...] 7:[address] Sánchez at bedside. Ricco Howard MD - 04/05/2020 4:29 PM EDT Progress [...] 04/05/2020 7:53 AM EDT Occupational Therapy Facility/Department: [facility] MED SURG Daily Treatment Note NAME: Jesús Nolan : 1935 Date of Service: 04/05/2020 Discharge Recommendations: Continue to assess pending progress, Subacute/Correction Facility, Patient would benefit from continued therapy [...] Pt uncooperative with assessment. Eyes closed upon contract writer entering room, easily aroused. Pt yells at contract writer to leave her alone. Pt tachypneic [...] Patient has not eaten any meals today. Client Technologies Specialist attempted to help feed the patient. Patient refused. * Robinson Ellsworth PTA - 04/04/2020 2:38 PM EDT Physical Therapy Facility/Department: [facility] MED SURG Daily Treatment Note NAME: Jesús Nolan : 1935 Date of Service: 04/04/2020 Discharge Recommendations: Continue to assess pending progress, Subacute/Correction Facility, ECF with PT, Patient would benefit [...] is approved by insurance to return to [facility]. SAAD Hough * Caprice Echeverria [...] Tells me that she has been at [facility] for 6 weeks now for therapy after a fractured hip. Her confusion has gradually gotten worse, more so lately. Support given. states that she has been unable to walk lately, which is the reason she was brought to the hospital. Admitted with cellulitis. Spiritual screening done. Tells me that the sample patternmaker visited with them yesterday. Denies any spiritual needs at this time. Emotional support given. DNR paper order form to be placed on paper chart for signature. Will continue to follow and support. Caprice Echeverria, RN, [facility] Palliative Care Nurse Coordinator 04/04/2020 11:24 AM * Alicia Miller RN - 04/04/2020 9:04 AM EDT Patient resting quietly in bed. No complaints at this time. Patient tolerated medications well. * Alicia Miller RN - 04/04/2020 8:45 AM EDT Patient refuses breakfast at this time. * Natalie Guzman PTA - 04/04/2020 8:39 AM EDT Physical Therapy Facility/Department: [facility] MED SURG Daily Treatment Note NAME: Jesús Nolan : 1935 Date of Service: 04/04/2020 Discharge Recommendations: Continue to assess pending progress, Subacute/Correction Facility, ECF with PT, Patient would benefit [...] Chart Reviewed: Yes Subjective Subjective: Assisted OT (Greman) with transfer. Pt pleasantly confused and requesting [...] like for her mother to return to [facility] following this hospitalization. Daughter is aware, per this contract writer, that [facility] does have Covid positive resident in their facility at this time. Referral made to [facility] via telephone voicemail message left for Kapil Robledoxler re:above. [facility] will begin pre-cert and notify ACCOUNT SERVICE REPRESENTATIVE when Patient is able to return. SAAD Koroma 04/03/2020 * Iza Hein LSW - 04/03/2020 3:15 PM EDT Met with Patient to discuss discharge planning. Unable to complete assessment due to Patient confusion. Telephone voicemail message left for Patient's spouse and for her daughter. Spoke with Admission's product representative at [facility] where Patient was residing at the time ofher hospitalization. She states that [facility] will take Patient back if she or her family chooseto send her back at this time with the knowledge that [facility] has Covid positive Patient in their facility at this time. ACCOUNT SERVICE REPRESENTATIVE will await a telephone call back from Patient's family to determine discharge planning goals. SAAD Koroma 04/03/2020 * Gretchen Chapa PTA - 04/03/2020 3:[address] [facility] Inpatient/Observation/Outpatient Rehabilitation Date: 04/03/2020 Patient Name: Jesús Nolan [x] Inpatient Acute/Observation [] Outpatient : 1935 [] Pt no showed for scheduled appointment [] Pt refused/declined therapy at this time due to: [x] Pt cancelled due to: [] No Reason Given [] Sick/ill [x] Other: Physical therapy treatment was attempted at 2:40pm. Patient demonstrating increased agitation. Consulted with Fanny, treatment withheld. Gretchen Chapa, YOGA INSTRUCTOR Date: 04/03/2020 * Astrid Alan, PT - 04/03/2020 9:30 AM EDT Physical Therapy Facility/Department: [facility] MED SURG Initial Assessment NAME: Jesús Nolan : 1935 Date of Service: 04/03/2020 Discharge Recommendations: Continue to assess pending progress, Subacute/Correction Facility, ECF with PT, Patient would benefit [...] History Lives With: Alone Type of Home: Facility([facility]) Home Layout: One level Home Equipment: Rolling walker ADL Assistance: Needs assistance Homemaking Assistance: Needs assistance IADL Comments: Limited hx provided by pt d/t impaired cognition. Pt resided at [facility], butunable to determine what length of time. Per EMR, pt went to [facility] for rehab following L hip fx. Cognition [...] 5. Fluid Accumulation-Mild fluid accumulation, Extremities 6. Warper Tender Strength-Not measured Recent Labs 04/02/20 1445 04/02/20200404/03/20 0555 NA 137 139 140 K 2.9* 3.4* 3.5* CL 92* 96* 96* CO2 29 28 26 BUN 37* 35* 30* CREATININE 1.41* 1.33* 1.17* GLUCOSE 200* 149* 157* GFR Lab Results Component Value Date LABALBU 3.3 03/25/2020 LABALBU 4.4 02/19/2012 Nutrition Risk Level: Moderate Nutrient Needs: Estimated Daily Total Kcal: 8804-3011 Estimated Daily Protein (g): 55-65 Estimated Daily [...] Usual Body Wt: 159 lb (72.1 kg) Hartland Body Wt: 100 lb (45.4 kg), % Hartland Body 158% BMI Classification: BMI 30.0 - 34.9 Obese Class I Nutrition Interventions: Continue current diet Continued Inpatient Monitoring, Education Completed Nutrition Evaluation: Evaluation: Goals set Goals: >75% PO Monitoring: Meal Intake, Supplement Intake, Weight, Pertinent Labs, Chewing/Swallowing, Patient/Family Education, Constipation Contact Number: [phone] * Sonali Avitia [facility] - 04/03/2020 8:11 AM EDT Piperacillin-Tazobactam Extended [...] You, Sonali Avitia04/03/20208:11 AM * Vernell Stephenson [facility] - 04/03/2020 7:29 AM EDT [facility] Department of Pharmacy Pharmacy Renal Adjustment [...] Stephenson RP - 04/03/2020 7:26 AM EDT [facility] Department of Pharmacy Pharmacy Renal Adjustment [...] Garcia RN - 04/03/2020 5:58 AM EDT Client Technologies Specialist and 2 RNs came change's patient's bed linen, gown, and brief at this time. Corrine care was performed. Patient is suddenly a lot more pleasant, cooperative, and able to hold a conversation. Patient is now orientated to person, birthday and place. Patient states she does not know the month. Client Technologies Specialist re orientated patient to month. Client Technologies Specialist is going to attempt to regain IV access. Leads were also off and reapplied. * Vicki Garcia RN - 04/03/2020 5:40 AM EDT Winch Derrick Operator alerted contract writer that patient had removed her brief and pull out her IV at this time. * Vicki Garcia RN - 04/03/2020 2:45 AM EDT Patient refused being repositioned at this time. Don't touch me, patient stated. * Vicki Garcia RN - 04/03/2020 2:28 AM EDT Navigator completed to contract writer's best ability. Multiple items of the [...] to leave the room at this time. Client Technologies Specialist will continue to monitor. * Vicki Garcia [...] Garcia RN - 04/03/2020 12:43 AM EDT Client Technologies Specialist attempted to give verpamil, xanax and tylenol crushed in pudding at this time. Patient refused, patient smacked contract writer and swore at contract writer and with contract writer's final attempt after explaining it had pain medication in the pudding to help her feel better, patient smacked the spoon out of contract writer'antonio and onto the floor, stating it smells like shit and I dont want no pills. Client Technologies Specialist was able to hook up driver patient to IV fluids however patient was mad at contract writer for doing so and swatted at contract writer. * Vicki Garcia RN - 04/03/2020 12:28 AM EDT Patient stated get the hell out of here and that myself and Valerie RN are a pain in the ass and need to get out. Client Technologies Specialist is attempting to give medications at this time. * Vicki Garcia RN - 04/03/2020 12:10 AM EDT Heart monitor applied at this time by contract writer. While applying heart monitor tabs patient was verbally agressive stating leave me alone, stop touching me and will you go downstairs and stay down there!? * Alan Jalloh, [facility] - 04/03/2020 12:10 AM EDT Pharmacy Note Renal Dose Adjustment Jesús Nolan is a 84 y.o. female. Pharmacist assessment of renally cleared medications. Recent Labs 04/02/20 1445 04/02/202004 BUN 37* 35* Recent Labs 04/02/20 1445 04/02/202004 CREATININE 1.41* 1.33* CrCl cannot be calculated (Unknown ideal weight.). Estimated CrCl using Hartland Body Weight: 23.4 mL/min (based on IBW 45.5 kg) Height: Ht Readings from Last 1 Encounters: 03/23/20 5' (1.524 m) Weight: Wt Readings from Last 1 Encounters: 03/23/20 159 lb (72.1 kg) The following medication dose has been adjusted based upon renal function per P&T Guidelines: Unasyn 1.5 gm IV every 8 hours changed to 1.5 gm IV every 12 hours. Alan Jalloh [facility] 04/03/2020 12:10 AM * Vicki Garcia RN - 04/03/2020 12:03 AM EDT Patient is disorientated x4. Patient stated I do not have a name. Did not respond when asked whenpatient was born multiple times. Patient stated we're at spoak's house when replying to location and stated no what was the month. Patient unable to answer questions at this time due to disorientation. ER nurses states hasnot seen weeks and was unable to speak on her care. Patient is from [facility], contract writer will review the paperwork sent over by [facility]. Patient is resting with eyes closed at this time, patient is confused and opens eyes occasional when spoken to. * Alan Jalloh [facility] - 04/03/2020 12:03 AM EDT Pharmacy Note Renal Dose Adjustment Jesús Nolan is a 84 y.o. female. Pharmacist assessment of renally cleared medications. Recent Labs 04/02/20 1445 04/02/202004 BUN 37* 35* Recent Labs 04/02/20 1445 04/02/202004 CREATININE 1.41* 1.33* CrCl cannot be calculated (Unknown ideal weight.). Estimated CrCl using Hartland Body Weight: 23.42 mL/min (based on IBW 45.5 kg) Height: Ht Readings from Last 1 Encounters: 03/23/20 5' (1.524 m) Weight: Wt Readings from Last 1 Encounters: 03/23/20 159 lb (72.1 kg) The following medication dose has been adjusted based upon renal function per P&T Guidelines: Enoxaparin 40 mg subcutaneously once daily changed to enoxaparin 30 mg subcutaneously once daily. Alan Jalloh [facility] 04/03/2020 12:03 AM * Vicki Garcia RN - 04/02/2020 11:20 PM EDT [facility] from ER via bed at this time. Patient was moved over to bed via flat sheet with 4 nurses. Patient unable to assist. documented in this encounter* Nirmala Lanier RN - 05/15/2020 3:50 PM EDT Report called to RN at [facility] in [place]. Facility will accept patient after 10pm when LACPcan pick her up. * Constantin Escobedo MD - 05/15/2020 11:58 AM EDT Hospitalist Progress Note Patient: Jesús Nolan [facility] Date [facility] 1935 Acct: [id number] PCP: Justino Dhaliwal DO Date of Admission: [...] [] Rehab [] Psych [] SNF [] Operating Room Registered Nurse Care Facility [] Other- Code Status: Full Code PT/OT Eval Status: * Katarina Pike, SALESPERSON PETS AND PET SUPPLIES - CONTRACT LOADER - 05/15/2020 11:39 AM EDT Orthopaedic Progress [...] LLE Dry dressings prn PT/OT dvt ppx Bettie Gamino PTA - 05/14/2020 12:06 PM EDT [facility] INPATIENT PHYSICAL THERAPY DAILY NOTE [facility] ORTHOPEDICS 7K - 7K-19/019-A Time In: 1125 [...] Function: Lives With: Alone Type of Home: Facility([facility] x6-7 months) ADL Assistance: Needs assistance(recently requiring assist with all at [facility]) Homemaking Assistance: (dependent on staff) Ambulation Assistance: Needs assistance Transfer Assistance: Needs assistance Additional Comments: Pt reports being a long time since she has walked, reports living at [facility] x6-7 months, was starting to work on [...] with functional mobility. Functional Outcome Measures: Completed -[facility] Inpatient Mobility Raw Score : 8 AM-[facility] Inpatient T-Scale Score : 28.52 ASSESSMENT: Assessment: Patient progressing toward established goals. Activity Tolerance: Patient tolerance of treatment: fair. Pt pleasantly confused during session. Equipment Recommendations:Equipment Needed: No Discharge Recommendations: Subacute/Correction Facility Plan: Times per week: 4-5x O [...] A x 2 for increased functional mobility. long-term goals Time Frame for long-term goals : NA due to short length of stay. Following session, patient left in safe position with all fall risk precautions in place. * Chele Lagos MD - 05/14/2020 9:42 AM EDT Physician Progress Note PATIENT: JESÚS NOLAN [facility] #: [id number] : 1935 ADMIT DATE: 05/10/2020 9:36 AM [...] Thank you! STEVO WallsN,RN, CRCR RN Clinical Nipple Machine Operator P: [phone] Options provided: -- Acute blood loss anemia [...] MD 05/14/2020 9:41 AM * Katarina Pike, SALESPERSON PETS AND PET SUPPLIES - CONTRACT LOADER - 05/14/2020 8:35 AM EDT Orthopaedic Progress [...] EDT Hospitalist Progress Note Patient: Jesús Nolan [facility]Bed[facility]19/019-A Date of : 1935 Acct: [id number] PCP: Justino Dhaliwal DO Date of Admission: [...] reviewed in chart review snap shot in [employer] CC: Consult for medical management HPI: Initial [...] Please excuse my TYPOS! * Katarina Pike, SALESPERSON PETS AND PET SUPPLIES - CONTRACT LOADER - 05/13/2020 11:30 AM EDT Orthopaedic Progress [...] - 05/13/2020 9:29 AM EDT [facility] INPATIENT PHYSICAL THERAPY DAILY NOTE [place] [employer] [...] Function: Lives With: Alone Type of Home: Facility([facility] x6-7 months) ADL Assistance: Needs assistance(recently requiring assist with all at [facility]) Homemaking Assistance: (dependent on staff) Ambulation Assistance: Needs assistance Transfer Assistance: Needs assistance Additional Comments: Pt reports being a long time since she has walked, reports living at [facility] x6-7 months, was starting to work on [...] without Stair Climbing Raw Score : 8 AM-[facility] Inpatient without Stair Climbing T-Scale Score : 30.65 ASSESSMENT: Assessment: Patient progressing toward established goals. Activity Tolerance: Patient tolerance of treatment: good. Pt able to get up with less assist this date. Equipment Recommendations:Equipment Needed: No Discharge Recommendations: Subacute/Correction Facility Plan: Times per week: 4-5x O [...] A x 2 for increased functional mobility. 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 Following session, patient left in safe position with all fall risk precautions in place. * Saleem Gomes MD - 05/13/2020 8:25 AM EDT Hospitalist Progress Note Patient: Jesús Nolan Unit/Bed:7K-19/019-A Date of : 1935 Acct: [id number] PCP: Justino Dhaliwal DO Date of Admission: [...] reviewed in chart review snap shot in [employer] CC: Consult for medical management HPI: Initial [...] Nolan Unit/Bed:7K-19/019-A Date of : 1935 Acct: [id number] PCP: Justino Dhaliwal DO Date of Admission: [...] reviewed in chart review snap shot in [employer] CC: Consult for medical management HPI: Initial [...] - 05/11/2020 2:37 PM EDT [facility] INPATIENT PHYSICAL THERAPY EVALUATION [facility] ORTHOPEDICS 7K - 7K-19/019-A Time In: 1325 [...] History: Lives With: Alone Type of Home: Facility([facility] x6-7 months) ADL Assistance: Needs assistance(recently requiring assist with all at [facility]) Homemaking Assistance: (dependent on staff) Ambulation Assistance: Needs assistance Transfer Assistance: Needs assistance Additional Comments: Pt reports being a long time since she has walked, reports living at [facility] x6-7 months, was starting to work on [...] with functional mobility. Functional Outcome Measures: Completed AM-[facility] Inpatient Mobility without Stair Climbing Raw Score : 6 AM-[facility] Inpatient without Stair Climbing T-Scale Score [...] FOLLOW UP: Yes Discharge Recommendations: Discharge Recommendations: Subacute/Correction Facility Patient Education: PT Education: PT Role, [...] x 2 for increased functional mobility. 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 Following session, patient left in safe position with all fall risk precautions in place. * Marcia Escalera OT - 05/11/2020 10:44 AM EDT [facility] INPATIENT OCCUPATIONAL THERAPY [facility] ORTHOPEDICS 7K EVALUATION Time: Time In: 958 Time Out: 5 Timed Code Treatment Minutes: 26 Minutes Minutes: 36 Date: 05/11/2020 Patient Name: Jesús Nolan, Gender: female : 1935 (84 y.o.) Referring Practitioner: Sylvia Monte APRN - KENISHA Diagnosis: periprosthetic hip fracture Additional [...] History: Lives With: Alone Type of Home: Facility([facility] x6-7 months) ADL Assistance: Needs assistance(recently requiring assist with all at [facility]) Homemaking Assistance: (dependent on staff) Ambulation Assistance: Needs assistance Transfer Assistance: Needs assistance Additional Comments: Pt reports being a long time since she has walked, reports living at [facility] x6-7 months, was starting to work on [...] Balance: Maximum Assistance, X 2. within [facility] BED MOBILITY: Supine to Sit: Moderate Assistance with cues and inc time TRANSFERS: Sit to Stand: Maximum Assistance, x3, pt unable to clear paddles on [facility] without 3rd person. from EOB Stand to Sit: Maximum Assistance, X 2. to recliner from [facility] FUNCTIONAL MOBILITY: Assistive Device: [facility] [...] independence and quality of life. Discharge Recommendations: Subacute/Correction Facility, Patient would benefit from continued therapy [...] Nolan Unit/Bed:-19/019-A Date of : 1935 Acct: [id number] PCP: Justino Dhaliwal DO Date of Admission: [...] reviewed in chart review snap shot in [employer] CC: Consult for medical management HPI: Initial [...] to K family upstairs waiting * Natali Tobias, RN - 05/10/2020 10:43 AM EDT The patient arrived with a primary care md. Patient in a wheelchair. Patient was transferred [...] - 06/13/2020 10:45 AM EDT [facility] Progress Note and Procedure Note Jesús Semaj Nolan AGE: 84 y.o. GENDER: female : [...] HIP performed by Chele Lagos MD at [facility] OR FAMILY HISTORY History reviewed. No pertinent [...] Z96.649 Decubitus ulcer of heel, left, unstageable ([facility]) L89.620 REC: excisional debridement / culture Specialized [...] Attached edges;Defined edges 05/30/201317 Corrine-wound Assessment Clean;Dry;Intact 05/30/20 1318 Culture Taken [...] (cm^3) 0.99 cm^3 05/30/20 1346 Wound Assessment [place];Slough;Yellow 05/30/20 1346 Drainage Amount Moderate 05/30/20 1346 Drainage Description Serosanguinous 05/30/20 1318 Odor None 05/30/20 1318 Corrine-wound Assessment Clean;Dry;Intact 05/30/20 1318 Non-staged Wound Description Full thickness 05/30/20 1346 [place]%Wound Bed 50 05/30/20 1346 Yellow%Wound Bed 50 [...] Weight- Weight: 161 lb 8 oz (73.3 kg)([facility] weight) IBW- 115 # %IBW- 141 % [...] Needs- BEE- 1162 kcal Total Calorie Needs- 3419-1794 (25-28 kcal/kg) Total Protein Needs- 78-94 (1.5-1.8 [...] States she eats too much. Staff from [facility] Pt is on a daily MVI [...] in this encounter Summary Purpose Family History Relationship Condition Age at Onset Recorded Date/T [...] Documentation Amb Documentation Amb Documentation Ear pain Chief Complaint Admit Date concerns about heladio August 16, 2024 10:50am Reason for Visit Admit Date Dysuria August 16, 2024 10:50am Fatigue August 16, 2024 10:50am Insomnia August 16, 2024 10:50am Acute metabolic encephalopathy August 16, 2024 10:50am Additional Source Comments Reason for Visit (unrecogniz [...] weaknes s, pain in joints. 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 Displaced intertrochanteric fracture of left femur, subsequent encounter for closed fracture with routine healing LEFT HIP PERIPROSTHETIC FEMUR FX WITH COMPLETE DISPLACEMENT Procedures SC REMOVAL SUPERFICIAL IMPLANT SC CONV PREV HIP SURG TO TOT HIP ARTHROPLAS HARDWARE REMOVAL LEFT HIP, CONVERSION TO LEFT TOTAL HIP Chele Lagos MD [address] [place] [address] [employer] Reason Comments Wound Check Bilateral heels Reason Comments Wound Check bilateral heels Reason Comments Wound Check bilateral heel/leg w ounds Reason Comments Wound Check left heel Reason Comments Wound Check Left heel Reason Comments Wound Check LEFT HEEL AND 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 CHECKER RIOR LOWER LEG Reason Comments Radio Gen A21 Specialty Diagnoses / Procedures Referred By Contac t Referred To Contact XR IMAGING Diagnoses Nephrolithiasis Procedures XR ABDOMEN 3V KUB W/OBLIQUES RADIOLOGIC EXAM ABDOMEN 3+ VIEWS Ricco Garland MD [address] [place] [address] [place] [address] Referral ID Status Reason Start Date Expiration Date V isits Requested Visits Authorized [id number] Closed Auto-Generate d Referral 10/27/2023 11/25/2024 1 1 Reason Comments Post-Op Visit Reason Comments Results Reason Comments Appointment Reason Comments Results Reason Comments Consult INFORMATION SOURCE (unrecogn ized section and content) DATE CREATED AUTHOR 05/22/2020 [facility] DATE CREATED AUTHOR AUTHOR'S ORGANIZ ATION 08/29/2020 [facility] DATE CREATED AUTHOR AUTHOR'S ORGANIZ ATION 04/20/2021 [facility] DATE CREATED AUTHOR AUTHOR'S ORGANIZ ATION 10/15/2021 [facility] DATE CREATED AUTHOR AUTHOR'S ORGANIZ ATION 09/07/2023 [facility] DATE CREATED AUTHOR AUTHOR'S ORGANIZ ATION 09/14/2023 [facility] ical Center DATE CREATED AUTHOR AUTHOR'S ORGANIZ ATION 02/02/2024 [facility] DATE CREATED AUTHOR AUTHOR'S ORGANIZ ATION 05/05/2024 [facility] d[facility] Specialists EPIC DATE CREATED AUTHOR AUTHOR'S ORGANIZ ATION 06/18/2024 [facility] DATE CREATED AUTHOR AUTHOR'S ORGANIZ ATION 08/04/2024 [facility] Care Teams (unrecognized sec tion and content) Team Status: Active Member Role Status Dates Brina Cordero MD Primary Care Provider Active Team Status: Active Member Role Status Dates Destiny Irwin MD Emergency Provider Active Brina Cordero MD Primary Care Provider Active Riky Bundy MD Admit Provider, Attending Martín foreman Active Exercise 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 Relationship Specialty Start Date End Date Brina Cordero MD [address] [place] [facility] [place] [id number] PCP - General Family Medicine 09/09/23 Exercise 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 Relationship Specialty Start Date End Date Brina Cordero MD [address] [facility] [place] [id number] PCP - General Family Medicine 09/09/23 Exercise 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 Relationship Specialty Start Date End Date Brina Cordero MD [address] [facility] [place] [phone] PCP - General Family Medicine 09/09/23 Exercise 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 Relationship Specialty Start Date End Date Brina Cordero MD [address] [facility] [place] [place] [address] PCP - General Family Medicine 09/09/23 Exercise 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 Relationship Specialty Start Date End Date Brina Cordero MD [address] [facility], [place] [address] PCP - General Family Medicine 09/09/23 Exercise 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 Relationship Specialty Start Date End Date Brina Cordero MD [address] [facility] [place] [address] PCP - General [...] January 19, 2024 End: January 19, 2024 Exercise 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 Relationship Specialty Start Date End Date Brina Cordero MD [address] [place] [id number] PCP - General Family Medicine 09/09/23 Exercise 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 Relationship Specialty Start Date End Date Brina Cordero MD [address] [place] [address] PCP - General Family Medicine 09/09/23 Exercise 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 Relationship Specialty Start Date End Date Brina Cordero MD [address] [place] [id number] PCP - General Family Medicine 09/09/23 Exercise 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 Relationship Specialty Start Date End Date Brina Cordero MD [address] [place] [address] PCP - General Family Medicine 09/09/23 Team Status: Active Member Role Status Dates Brina Cordero MD Primary Care Provide r, Attending Provider Active Start: May 22, 2024 Team Status: Active Member Role Status Dates Brina Cordero MD Primary Care Provide r, Attending Provider Active Start: June 27, 2024 Team Status: Active Member Role Status Dates Brina Cordero MD Primary Care Provide r, Attending Provider Active Start: June 28, 2024 Team Status: Active Member Role Status Dates Brina Cordero MD Primary Care Provide r, Attending Provider Active Start: July 14, 2024 Team Status: Inactive Member Role Status Dates Brina Cordero MD Primary Care Provide r, Attending Provider Active Start: August 16, 2024 End: August 16, 2024 Goals (unrecognized section and content) Goals may be documented in a n alternate section Source Comments (unrecognize d section and content) In the event this informatio n is protected by the Federal Confidentiality of Alcohol and Drug Abuse Patient Records regulations: The Federal rules restrict any use of the information to criminally investigate or prosecute any alcohol or drug abuse patient.[facility] the event this information is protected by the Federal Confidentiality of Alcohol and Drug Abuse Patient Records regulations: The Federal rules restrict any use of the information to criminally investigate or prosecute any alcohol or drug abuse patient.[facility] the event this information is protected by the Federal Confidentiality of Alcohol and Drug Abuse Patient Records regulations: The Federal rules restrict any use of the information to criminally investigate or prosecute any alcohol or drug abuse patient.[facility] the event this information is protected by the Federal Confidentiality of Alcohol and Drug Abuse Patient Records regulations: The Federal rules restrict any use of the information to criminally investigate or prosecute any alcohol or drug abuse patient.[facility] the event this information is protected by the Federal Confidentiality of Alcohol and Drug Abuse Patient Records regulations: The Federal rules restrict any use of the information to criminally investigate or prosecute any alcohol or drug abuse patient.[facility] the event this information is protected by the Federal Confidentiality of Alcohol and Drug Abuse Patient Records regulations: The Federal rules restrict any use of the information to criminally investigate or prosecute any alcohol or drug abuse patient.[facility] the event this information is protected by the Federal Confidentiality of Alcohol and Drug Abuse Patient Records regulations: The Federal rules restrict any use of the information to criminally investigate or prosecute any alcohol or drug abuse patient.[facility] the event this information is protected by the Federal Confidentiality of Alcohol and Drug Abuse Patient Records regulations: The Federal rules restrict any use of the information to criminally investigate or prosecute any alcohol or drug abuse patient.[facility] the event this information is protected by the Federal Confidentiality of Alcohol and Drug Abuse Patient Records regulations: The Federal rules restrict any use of the information to criminally investigate or prosecute any alcohol or drug abuse patient.[facility] the event this information is protected by the Federal Confidentiality of Alcohol and Drug Abuse Patient Records regulations: The Federal rules restrict any use of the information to criminally investigate or prosecute any alcohol or drug abuse patient.[facility] the event this information is protected by the Federal Confidentiality of Alcohol and Drug Abuse Patient Records regulations: The Federal rules restrict any use of the information to criminally investigate or prosecute any alcohol or drug abuse patient.[facility] Hospital[facility] the event this information is protected by the Federal Confidentiality of Alcohol and Drug Abuse Patient Records regulations: The Federal rules restrict any use of the information to criminally investigate or prosecute any alcohol or drug abuse patient.[facility] FOR RECORDS PERTAINING TO PATIENTS WHO [...] ON THE PRIMARY CLINICAL RECORDS. [facility] [employer] [facility]. provides no warranty or guarantee of the accuracy or completeness of information in this document.
== END 2024-08-16 16:43 | disposition home or self-care (01) ==
LOC: LAB 16:42
PROVIDERS: PCP Family Medicine; Visit Provider Family Medicine
DX: R30.0 Dysuria (principal); G93.41 Metabolic encephalopathy; R53.83 Other fatigue; G47.00 Insomnia, unspecified
CPT/HCPCS: 87086

== ENCOUNTER 2024-08-17 14:41 | Outpatient (OUT) | payer MEDICARE, MEDICAID, SELFPAY ==
[2024-08-17 15:12] LABS: Basophils Percent Auto 0.1 % (0.2-2.0); Eosinophils Absolute Auto 0.2 10^3/uL (0.0-0.7); Hematocrit 42.8 % (36.0-48.0); Hemoglobin 13.6 g/dL (12.0-16.0); Immature Granulocytes Abs Auto 0.02 10^3/uL (0.00-0.03); Immature Granulocytes Pct Auto 0.3 % (0.0-0.5); Lymphocytes Absolute Auto 1.9 10^3/uL (1.2-3.8); Mean Corpuscular HGB Conc 31.8 g/dL (29.9-35.2); Mean Corpuscular Hemoglobin 31.1 pg (26.7-34.0); Mean Corpuscular Volume 97.9 fL (81.0-99.0); Mean Platelet Volume 10.2 fL (9.5-13.5); Monocytes Absolute Auto 0.8 10^3/uL (0.3-0.8); Monocytes Percent Auto 10.8 % (1.7-12.0); Neutrophils Absolute Auto 4.6 10^3/uL (1.4-6.5); Neutrophils Percent Auto 61.8 % (43.0-75.0); Platelet Count 229 10^3/uL (150-450); Red Blood Count 4.37 10^6/uL (4.20-5.40); Red Cell Distribution Width 13.2 % (11.0-15.0); White Blood Count 7.4 10^3/uL (4.0-11.0)
[2024-08-17 16:47] LABS: Free T4 0.98 ng/dL (0.76-1.46)
[2024-08-17 16:52] LABS: Anion Gap 13.4; BUN Creatinine Ratio 15.3; Calcium 9.5 mg/dL (8.5-10.1); Carbon Dioxide 29.7 mmol/L (21.0-32.0); Chloride 106 mmol/L (98-107); Estimated GFR (African America 28 (>=60 mL/min/1.73m^2); Estimated GFR (Non-African Ame 23 (>=60 mL/min/1.73m^2); Glucose 161 mg/dL (74-106); Potassium 4.1 mmol/L (3.5-5.1); Sodium 145 mmol/L (136-145); Thyroid Stimulating Hormone 1.308 uIU/mL (0.358-3.740)
== END 2024-08-17 14:42 | disposition home or self-care (01) ==
PROVIDERS: PCP Family Medicine; Visit Provider Family Medicine
DX: R30.0 Dysuria (principal); G93.41 Metabolic encephalopathy; R53.83 Other fatigue; G47.00 Insomnia, unspecified
CPT/HCPCS: 36415; 80048; 84439; 84443; 85025

== ENCOUNTER 2024-09-15 13:40 | Outpatient (OUT) | payer MEDICARE, MEDICAID, SELFPAY ==
--- NOTE | 2024-09-15 13:45 | CT_ITS ---
The [address] [address] Patient Name: JESÚS GONSALES MRN: [id number] date: 1935 Sex: F Assigned Patient Location: CT Current Patient Location: CT Accession/Order Number: [id number] Exam Date: 09/15/2024 13:50 Report Date: 09/15/2024 14:43 At the request of: BRINA CORDERO Procedure: CT head/brain wo con CT head/brain wo con, 09/15/2024 1:50 PM EST INDICATION: Visual Hallucinations COMPARISON: Prior CT of the head dated 08/24/2023 TECHNIQUE: Axial CT images of the brain from skull base to vertex, including portions of the face and sinuses, were obtained without contrast . Multiplanar reformatted images were generated and reviewed as needed. Dose reduction techniques were achieved by using automated exposure control and/or adjustment of mA and/or kV according to patient size and/or use of iterative reconstruction technique. FINDINGS: The cerebral sulci as well as ventricular system are appropriate for age. There is no intracranial mass, mass effect, midline shift, intra or extra-axial fluid collection or hemorrhage. Periventricular and centrum semiovale hypodensities are most likely consistent with microvascular ischemic changes. Lacunar infarct within the right putamen is noted. The visualized portions of orbits, mastoid air cells as well as paranasal sinuses are unremarkable. Status post bilateral lens replacement. There is no suspicious osteolytic or osteoblastic lesion. CT/CT head/brain wo con IMPRESSION: No acute intracranial process is noted. Electronically authenticated by: ZEEK ARIZMENDI Date: 09/15/2024 14:43
== END 2024-09-15 13:41 | disposition home or self-care (01) ==
LOC: CT 13:40
PROVIDERS: PCP Family Medicine; Visit Provider Family Medicine
DX: R44.1 Visual hallucinations (principal)
CPT/HCPCS: 70450

== ENCOUNTER 2024-11-13 05:00 | Emergency (ER) | payer MEDICARE, MEDICAID, SELFPAY ==
[2024-11-13 04:59] VITALS: BP 133/95; PULSE 84; TEMP 36.7; O2SAT 98; BMI 32.0
--- NOTE | 2024-11-13 05:10 | XR_ITS ---
The [address] [address] Patient Name: JESÚS GONSALES MRN: [id number] date: 1935 Sex: F Assigned Patient Location: ER Current Patient Location: ER Accession/Order Number: [id number] Exam Date: 11/13/2024 05:30 Report Date: 11/13/2024 06:09 At the request of: MAKSIM MARKER Procedure: XR knee SLIM 3V EXAM: XR knee SLIM 3V HISTORY: fall, kne pain COMPARISON: None. TECHNIQUE: 3 views of each knee were obtained. FINDINGS: Right knee: No acute fracture or dislocation is seen. There are moderate degenerative changes of the right knee. Chondrocalcinosis is seen within the right knee. There is no significant right knee joint effusion. Left knee: There are postsurgical changes of a total knee arthroplasty. No acute fracture or dislocation is seen. There is no significant left knee joint effusion. Atherosclerotic calcifications are noted. XR/XR knee SLIM 3V IMPRESSION: 1. No acute fracture or dislocation of either knee is seen. If pain persists, repeat radiographs are recommended in 7-10 days. Electronically authenticated by: Brant BURGESS Date: 11/13/2024 06:09
--- NOTE | 2024-11-13 05:10 | XR_ITS ---
The [address] [address] Patient Name: JESÚS GONSALES MRN: [id number] date: 1935 Sex: F Assigned Patient Location: ER Current Patient Location: ER Accession/Order Number: [id number] Exam Date: 11/13/2024 05:30 Report Date: 11/13/2024 06:15 At the request of: MAKSIM MARKER Procedure: XR chest 1V EXAM: XR chest 1V HISTORY: fall COMPARISON: Chest radiograph dated 08/24/2023. TECHNIQUE: One view of the chest. FINDINGS: The cardiac silhouette is stable in size. Aortic atherosclerotic disease is seen. A calcified granuloma is seen in the mid left lung. There is no significant pneumothorax or pleural effusion. No acute osseous abnormality is seen. Cholecystectomy clips are partially imaged. XR/XR chest 1V IMPRESSION: 1. No acute cardiopulmonary abnormality. Electronically authenticated by: Brant BURGESS Date: 11/13/2024 06:15
--- NOTE | 2024-11-13 05:10 | CT_ITS ---
The [address] [address] Patient Name: JESÚS GONSALES MRN: [id number] date: 1935 Sex: F Assigned Patient Location: ER Current Patient Location: Accession/Order Number: [id number] Exam Date: 11/13/2024 05:30 Report Date: 11/13/2024 06:12 At the request of: MAKSIM MARKER Procedure: CT head/brain wo con EXAM: CT head/brain wo con, CT cervical spine wo con INDICATION: 89 years old; Female. Unwitnessed fall. TECHNIQUE: CT Head (ax/cor/sag reformats). Ionizing radiation dose reduced via iterative reconstruction/FBP blend and body size kV/mA adjustment. Comparison: Head CT dated 09/15/2024. FINDINGS: POSTOPERATIVE CHANGES: None. BRAIN PARENCHYMA: No intraparenchymal or extra-axial hemorrhage. No mass effect. No midline shift or herniation. 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 Subtle patchy low-density in the periventricular white matter without mass effect. VENTRICLES/EXTRA-AXIAL SPACES: Normal for patient's age. SINUSES/MASTOIDS: The sinuses are clear although the maxillary sinuses are not completely included. Nasal septal deviation to the left with spur formation. Christina bullosa present on the right. Mastoids and middle ears are clear. MSK: No displaced or depressed calvarial fracture. There is a lobulated lucency in the occipital bone consistent with an arachnoid granulation. OTHER: No hyperdense intraluminal thrombus. There is dense vascular calcification in the anterior and posterior circulation. TECHNIQUE: CT imaging of the cervical spine was performed. IV contrast: None. Dose reduction techniques were achieved by using automated exposure control and/or adjustment of mA and/or kV according to patient size and/or use of iterative reconstruction technique. COMPARISON: None available. FINDINGS: POSTOPERATIVE CHANGES: None. ALIGNMENT: Nonspecific straightening of the normal cervical curve. There is grade 1 degenerative spondylolisthesis at C2-C3, C3-C4, and C7-T1. C2 is positioned 2.85 mm anterior to C3. C3 is positioned 2.26 mm anterior to C4. C7 is positioned 1.98 mm anterior to T1. COMPRESSION FRACTURES: Generalized bony demineralization is present. No acute fracture or vertebral body collapse. No bone destruction. No asymmetric widening of the facets. PREVERTEBRAL SOFT TISSUES: Normal. CRANIOCERVICAL JUNCTION: There is a normal relationship of the occipital condyles, lateral masses of C1, and articular surfaces of C2. The base of the dens and body of C2 are intact. There is narrowing of the predental space associated with spur formation arising from the anterior arch of C1 and the tip of the dens. POSTERIOR FOSSA: The cerebellar tonsils are above the foramen magnum. There is dense calcification in the V3 and V4 segments of vertebral arteries. Disc levels: C2-C3: Grade 1 degenerative spondylolisthesis. Facet degeneration. Central canal patent. Neural foramina patent. C3-C4: Disc space narrowing. Vertebral endplate degeneration. Grade 1 degenerative spondylolisthesis. Facet degeneration. Central canal patent. Neural foramina patent. C4-C5: Disc space narrowing. Vertebral endplate degeneration. Anterior osteophytes. Shallow broad-based central disc osteophyte complex. Central canal patent. Neural foramina patent. C5-C6: Disc space narrowing. Vertebral endplate degeneration. Endplate osteophyte formation. Uncovertebral joint degeneration, worse on the left than the right. Mild to moderate left foraminal stenosis. C6-C7: Disc space narrowing. Vertebral endplate degeneration. Endplate osteophyte formation. Central and left-sided disc osteophyte complex. Central canal patent. Neural foramina patent. C7-T1: Facet degeneration. Grade 1 degenerative spondylolisthesis. Central canal patent. Mild foraminal stenosis. UPPER THORACIC SPINE: At T1-T2, Beam hardening artifacts. Posterior ligament is calcification. Central canal and neural foramina are patent. OTHER: Inhomogeneous appearance of the thyroid with enlargement of the left lobe of the thyroid demonstrating an ill-defined nodule. This measures 15.31 x 12.75 mm in diameter, image 59/series 4. Recommend nonemergent thyroid ultrasound. Vascular calcifications are present. CT/CT head/brain wo con IMPRESSION: 1. No acute intracranial abnormality. No hemorrhage or mass effect. 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 3. Subtle nonspecific white matter changes without mass effect. 4. Vascular calcification the anterior and posterior circulation. 5. Multilevel cervical spondylosis. No acute fracture. Please see the detailed discussion of the individual levels in the body of this report. 6. Abnormal appearance of the thyroid gland. Recommend nonemergent thyroid ultrasound. Electronically authenticated by: KIAN OCONNOR Date: 11/13/2024 06:12
--- NOTE | 2024-11-13 05:10 | XR_ITS ---
The [address] [address] Patient Name: JESÚS GONSALES MRN: [id number] date: 1935 Sex: F Assigned Patient Location: ER Current Patient Location: ER Accession/Order Number: [id number] Exam Date: 11/13/2024 05:30 Report Date: 11/13/2024 06:12 At the request of: MAKSIM MARKER Procedure: XR hip BI w PEL 1V EXAM: XR hip BI w PEL 1V HISTORY: unwitnessed fall COMPARISON: None. TECHNIQUE: One view of the pelvis and 2 views of each hip were obtained. FINDINGS: There are postsurgical changes of a left total hip arthroplasty. Atherosclerotic calcifications are noted. No acute fracture or dislocation is seen. The right femoral head is well-seated in the acetabulum. There are mild degenerative changes of both sacroiliac joints. There are [id number] degenerative changes of the right hip joint. XR/XR hip BI w PEL 1V IMPRESSION: 1. No acute fracture or dislocation of the pelvis or either hip is seen. If there is concern for an occult injury, cross-sectional imaging is recommended. Electronically authenticated by: Brant BURGESS Date: 11/13/2024 06:12
--- NOTE | 2024-11-13 05:12 | ED.FALL1 ---
HPI HPI - Fall General Chief Complaint: Fall Stated Complaint: FALL Time Seen by Provider: 11/13/24 05:30 Source: patient and EMR Source comment: report from EMS and from assisted living nurse Mode of arrival: ambulance Limitations: other Limitations comment: Hx dementia History of Present Illness HPI Narrative: This 89-year-old female with a history of dementia who lives at [facility] is transferred for evaluation after she fell last night around 9pm. Apparently she told one of the nurses at the facility this morning that she had fallen and or her knees were hurting. The fall was unwitnessed. Apparently the patient typically walks with a walker but told the nurse that she could not walk this morning. The patient cannot recall the details of her fall. She states to me that there were some people visiting that were spending the night so she was going to sleep on the recliner. She states she was going to the recliner when she fell. She denies any chest pain or shortness of breath. She is awake alert oriented to person and place. Related Data Home Medications ?Medication ?Instructions ?Recorded ?Confirmed ascorbic acid (vitamin C) 500 mg 500 mg PO .QD 08/24/23 11/13/24 tablet (Vitamin C) buspirone 10 mg tablet 10 mg PO BID 08/24/23 11/13/24 calcitriol 0.25 mcg capsule 0.25 mcg PO .QD 08/24/23 11/13/24 docusate sodium 100 mg capsule 100 mg PO BID 08/24/23 11/13/24 ferrous sulfate 325 mg (65 mg 325 mg PO .QD 08/24/23 11/13/24 iron) tablet furosemide 20 mg tablet 20 mg PO .QD 08/24/23 11/13/24 hydralazine 25 mg tablet 25 mg PO BID 08/24/23 11/13/24 hydrocodone 10 mg-acetaminophen 1 tab PO Q8H PRN pain 08/24/23 11/13/24 325 mg tablet lorazepam 0.5 mg tablet 0.5 mg PO Q8H PRN anxiety 08/24/23 11/13/24 melatonin 10 mg disintegrating 10 mg PO .QHS PRN sleep 08/24/23 11/13/24 tablet multivitamin with folic acid 400 1 tab PO .QD 08/24/23 11/13/24 mcg tablet (High Potency Multivitamin) potassium chloride 20 mEq 20 meq PO .QD 08/24/23 11/13/24 tablet,extended release(part/cryst) pravastatin 10 mg tablet 10 mg PO QPM 08/24/23 11/13/24 verapamil 180 mg tablet,extended 180 mg PO .QD 08/24/23 11/13/24 release Allergies Allergy/AdvReac Type Severity Reaction Status Date / Time No Known Drug Allergies Allergy Verified 08/24/23 20:42 Opioid HPI Opioid Management Most Recent Pain and Opioid Data: Last Pain Scale 4 11/13/24 06:02 11/13/24 Last MAR Pain Assessment 11/13/24 06:02 Review of Systems ROS Status of ROS 10 or more systems reviewed and unremarkable except as noted in history and below [facility] Medical History (Updated 11/13/24 @ 06:37 by Yesi Urena MD) GERD (gastroesophageal reflux disease) ?K21.9 - Gastro-esophageal reflux disease without esophagitis (ICD-10) Polyosteoarthritis ?M15.9 - Polyosteoarthritis, unspecified (ICD-10) Anxiety ?F41.9 - Anxiety disorder, unspecified (ICD-10) Hyperlipemia ?E78.5 - Hyperlipidemia, unspecified (ICD-10) Anemia ?D64.9 - Anemia, unspecified (ICD-10) Macular degeneration ?H35.30 - Unspecified macular degeneration (ICD-10) Insomnia ?G47.00 - Insomnia, unspecified (ICD-10) Alzheimer disease ?G30.9 - Alzheimer's disease, unspecified (ICD-10) ?F02.80 - Dementia in other diseases classified elsewhere, unspecified severity, without behavioral disturbance, psychotic disturbance, mood disturbance, and anxiety (ICD-10) CKD (chronic kidney disease) stage 4, GFR 15-29 ml/min ?N18.4 - Chronic kidney disease, stage 4 (severe) (ICD-10) Skin cancer ?C44.90 - Unspecified malignant neoplasm of skin, unspecified (ICD-10) Dementia ?F03.90 - Unspecified dementia, unspecified severity, without behavioral disturbance, psychotic disturbance, mood disturbance, and anxiety (ICD-10) Chronic kidney disease ?N18.9 - Chronic kidney disease, unspecified (ICD-10) HTN (hypertension) ?I10 - Essential (primary) hypertension (ICD-10) Surgical History (Updated 08/25/23 @ 00:26 by Rosario Andersen) History of hip surgery ?Z98.890 - Other specified postprocedural states (ICD-10) Family History (Updated 08/25/23 @ 00:27 by Rosario Andersen) Grandmother Family history of stroke Grandfather Family history of stroke Social History (Updated 08/25/23 @ 00:28 by Rosario Andersen) Within the past year, how often did you have a drink containing alcohol: never Score interpretation: A score less than 3 is consistent with normal alcohol consumption. Smoking status: Never smoker Second hand tobacco smoke exposure: No Non-prescribed substance use: denies use Previous occupational history: retired Known occupational exposures/hazards: No Highest level of school completed/degree received: high school graduate Do you want help with school or training: No Are you now , , , , never or living with a partner: In a typical week, how many times do you talk on the telephone with family, friends, or neighbors: 3 or more times per week How often do you get together with friends or relatives: 3 or more times per week How often do you attend sabianism or orthodox services: never Do you belong to any clubs or organizations such as sabianism groups unions, fraternal or athletic groups, or school groups: no Total score: 1 Score interpretation: A score of less than or equal to 1 indicates the most socially isolated. Little interest or pleasure in doing things: not at all Feeling down, depressed, or hopeless: not at all Feel stressed/tense/nervous/anxious/difficulty sleeping: very much Life stressor details: medical issues Due to disability, difficulty making decisions: No Do you think of yourself as: straight/heterosexual Gender Identity: female Exam Narrative Exam Narrative: Vital signs and Nursing Notes reviewed: Patient is afebrile with a normal pulse, blood pressure is mildly elevated 133/95, she is not hypoxic with pulse ox of 98% on room air General: Awake, alert, oriented to person and place. She is unaware of the year. She is pleasantly confused but alert, hard of hearing and able to follow commands HEENT: Normocephalic atraumatic, mucous membranes are moist and pink, eyes are clear, normal conjunctiva, vision is grossly intact, posterior pharynx is normal in appearance. Neck: Supple, no midline bony vertebral tenderness or step-off Chest: Lungs are clear to auscultation with good air entry, there is no wheezing rhonchi or rales appreciated no accessory muscle use, patient is speaking in complete sentences-no chest wall tenderness to palpation CVS: Regular rate and rhythm S1-S2, systolic ejection murmur noted at the left sternal border, pulses are brisk and equal bilaterally ABD: Soft, nondistended, nontender, no rebound guarding or rigidity, bowel sounds are normal, no pulsatile masses appreciated, stable pelvic rock Extremities: There is no cervical, thoracic or lumbar tenderness to palpation. There is no clavicular tenderness. There is a superficial abrasion over the right lateral knee. Patient is reluctant to bend her knees due to pain. There is no leg length discrepancy. There are severe arthritic changes to her hands and more particularly her feet. Skin: Normal in appearance without rash,pallor, petechiae or purpura Neuro: No focal deficits Constitutional Vital Signs, click to edit/add: Last Vital Signs Temp 98.1 F 11/13/24 04:59 Pulse 84 11/13/24 04:59 Resp 14 11/13/24 04:59 BP 133/95 H 11/13/24 04:59 Pulse Ox 98 11/13/24 04:59 O2 Del Method Room Air 11/13/24 04:59 Course Vital Signs Vital signs: Vital Signs Temperature 98.1 F 11/13/24 04:59 Pulse Rate 84 11/13/24 04:59 Respiratory Rate 14 11/13/24 04:59 Blood Pressure 133/95 H 11/13/24 04:59 Pulse Oximetry 98 11/13/24 04:59 Oxygen Delivery Method Room Air 11/13/24 04:59 Temperature 98.1 F 11/13/24 04:59 Pulse Rate 84 11/13/24 04:59 Respiratory Rate 14 11/13/24 04:59 Blood Pressure 133/95 H 11/13/24 04:59 Pulse Oximetry 98 11/13/24 04:59 Oxygen Delivery Method Room Air 11/13/24 04:59 MDM - Fall MDM Narrative Medical decision making narrative: This 89-year-old female with a history of dementia is transferred from the extended care facility where she resides for evaluation of a fall. The fall was unwitnessed. She told a nurse this morning that she had fallen last night around 9 PM. She does have a very superficial abrasion on the lateral aspect of her right leg. According to the nurse who gave report the patient typically ambulates with a walker but this morning stated that she could not ambulate due to pain in her knees and hips. The patient denies any head injury or neck pain but is not a reliable historian. Her neuroexam is normal. She has no tenderness over her cervical or thoracic or lumbar spine. Besides the very superficial abrasion on the lateral aspect of her right leg she has severe arthritic changes of her hands and feet. Due to the history of an unwitnessed fall I scanned her head, cervical spine and did x-rays of her chest, pelvis and bilateral knees. She was medicated with Tylenol in the emergency department. CT scan of the head and neck was reviewed by radiology with no acute findings. Chronic changes are noted. X-ray of the hips and pelvis was negative for fracture dislocation or other notable abnormality. X-ray of the knees was negative for fracture dislocation or other notable abnormalities and chest x-ray was also read as normal. Patient is stable for return to the extended care facility at this time Medical Records Medical records narrative: The [address] [address] XRay Report Signed Patient: JESÚS GONSALES MR#: [id number] : 1935 Acct:[id number] Age/Sex: 89 / F ADM Date: 11/13/24 Loc: ER Attending Dr: Ordering Physician: Yesi Urena Date of Service: 11/13/24 Procedure(s): XR chest 1V Accession Number(s): [id number] cc: Marybeth Faustin M.D.; Yesi Marker~ The [address] [address] Patient Name: JESÚS GONSALES MRN: [id number] date: 1935 Sex: F Assigned Patient Location: ER Current Patient Location: ER Accession/Order Number: [id number] Exam Date: 11/13/2024 05:30 Report Date: 11/13/2024 06:15 At the request of: YESI URENA Procedure: XR chest 1V EXAM: XR chest 1V HISTORY: fall COMPARISON: Chest radiograph dated 08/24/2023. TECHNIQUE: One view of the chest. FINDINGS: The cardiac silhouette is stable in size. Aortic atherosclerotic disease is seen. A calcified granuloma is seen in the mid left lung. There is no significant pneumothorax or pleural effusion. No acute osseous abnormality is seen. Cholecystectomy clips are partially imaged. XR/XR chest 1V IMPRESSION: 1. No acute cardiopulmonary abnormality. Electronically authenticated by: Brant BURGESS Date: 11/13/2024 06:[address] [address] [address] Scan Report Signed Patient: JESÚS GONSALES MR#: [id number] : 1935 Acct:[id number] Age/Sex: 89 / F ADM Date: 11/13/24 Loc: ER Attending Dr: Ordering Physician: Yesi Urena Date of Service: 11/13/24 Procedure(s): CT cervical spine wo con Accession Number(s): [id number] cc: Marybeth Faustin M.D. The [address] [address] Patient Name: JESÚS GONSALES MRN: [id number] date: 1935 Sex: F Assigned Patient Location: ER Current Patient Location: ER Accession/Order Number: [id number] Exam Date: 11/13/2024 05:30 Report Date: 11/13/2024 06:12 At the request of: YESI URENA Procedure: CT cervical spine wo con EXAM: CT head/brain wo con, CT cervical spine wo con INDICATION: 89 years old; Female. Unwitnessed fall. TECHNIQUE: CT Head (ax/cor/sag reformats). Ionizing radiation dose reduced via iterative reconstruction/FBP blend and body size kV/mA adjustment. Comparison: Head CT dated 09/15/2024. FINDINGS: POSTOPERATIVE CHANGES: None. BRAIN PARENCHYMA: No intraparenchymal or extra-axial hemorrhage. No mass effect. No midline shift or herniation. 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 Subtle patchy low-density in the periventricular white matter without mass effect. VENTRICLES/EXTRA-AXIAL SPACES: Normal for patient's age. SINUSES/MASTOIDS: The sinuses are clear although the maxillary sinuses are not completely included. Nasal septal deviation to the left with spur formation. Christina bullosa present on the right. Mastoids and middle ears are clear. MSK: No displaced or depressed calvarial fracture. There is a lobulated lucency in the occipital bone consistent with an arachnoid granulation. OTHER: No hyperdense intraluminal thrombus. There is dense vascular calcification in the anterior and posterior circulation. TECHNIQUE: CT imaging of the cervical spine was performed. IV contrast: None. Dose reduction techniques were achieved by using automated exposure control and/or adjustment of mA and/or kV according to patient size and/or use of iterative reconstruction technique. COMPARISON: None available. FINDINGS: POSTOPERATIVE CHANGES: None. ALIGNMENT: Nonspecific straightening of the normal cervical curve. There is grade 1 degenerative spondylolisthesis at C2-C3, C3-C4, and C7-T1. C2 is positioned 2.85 mm anterior to C3. C3 is positioned 2.26 mm anterior to C4. C7 is positioned 1.98 mm anterior to T1. COMPRESSION FRACTURES: Generalized bony demineralization is present. No acute fracture or vertebral body collapse. No bone destruction. No asymmetric widening of the facets. PREVERTEBRAL SOFT TISSUES: Normal. CRANIOCERVICAL JUNCTION: There is a normal relationship of the occipital condyles, lateral masses of C1, and articular surfaces of C2. The base of the dens and body of C2 are intact. There is narrowing of the predental space associated with spur formation arising from the anterior arch of C1 and the tip of the dens. POSTERIOR FOSSA: The cerebellar tonsils are above the foramen magnum. There is dense calcification in the V3 and V4 segments of vertebral arteries. Disc levels: C2-C3: Grade 1 degenerative spondylolisthesis. Facet degeneration. Central canal patent. Neural foramina patent. C3-C4: Disc space narrowing. Vertebral endplate degeneration. Grade 1 degenerative spondylolisthesis. Facet degeneration. Central canal patent. Neural foramina patent. C4-C5: Disc space narrowing. Vertebral endplate degeneration. Anterior osteophytes. Shallow broad-based central disc osteophyte complex. Central canal patent. Neural foramina patent. C5-C6: Disc space narrowing. Vertebral endplate degeneration. Endplate osteophyte formation. Uncovertebral joint degeneration, worse on the left than the right. Mild to moderate left foraminal stenosis. C6-C7: Disc space narrowing. Vertebral endplate degeneration. Endplate osteophyte formation. Central and left-sided disc osteophyte complex. Central canal patent. Neural foramina patent. C7-T1: Facet degeneration. Grade 1 degenerative spondylolisthesis. Central canal patent. Mild foraminal stenosis. UPPER THORACIC SPINE: At T1-T2, Beam hardening artifacts. Posterior ligament is calcification. Central canal and neural foramina are patent. OTHER: Inhomogeneous appearance of the thyroid with enlargement of the left lobe of the thyroid demonstrating an ill-defined nodule. This measures 15.31 x 12.75 mm in diameter, image 59/series 4. Recommend nonemergent thyroid ultrasound. Vascular calcifications are present. CT/CT cervical spine wo con IMPRESSION: 1. No acute intracranial abnormality. No hemorrhage or mass effect. 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 3. Subtle nonspecific white matter changes without mass effect. 4. Vascular calcification the anterior and posterior circulation. 5. Multilevel cervical spondylosis. No acute fracture. Please see the detailed discussion of the individual levels in the body of this report. 6. Abnormal appearance of the thyroid gland. Recommend nonemergent thyroid ultrasound. Electronically authenticated by: KIAN OCONNOR Date: 11/13/2024 06:[address] [address] XRay Report Signed Patient: JESÚS GONSALES MR#: [id number] : 1935 Acct:[id number] Age/Sex: 89 / F ADM Date: 11/13/24 Loc: ER Attending Dr: Ordering Physician: Yesi Urena Date of Service: 11/13/24 Procedure(s): XR hip BI w PEL 1V Accession Number(s): [id number] cc: Marybeth Faustin M.D.; Yesi Marker~ The [address] [address] Patient Name: JESÚS GONSALES MRN: [id number] date: 1935 Sex: F Assigned Patient Location: ER Current Patient Location: ER Accession/Order Number: [id number] Exam Date: 11/13/2024 05:30 Report Date: 11/13/2024 06:12 At the request of: YESI URENA Procedure: XR hip BI w PEL 1V EXAM: XR hip BI w PEL 1V HISTORY: unwitnessed fall COMPARISON: None. TECHNIQUE: One view of the pelvis and 2 views of each hip were obtained. FINDINGS: There are postsurgical changes of a left total hip arthroplasty. Atherosclerotic calcifications are noted. No acute fracture or dislocation is seen. The right femoral head is well-seated in the acetabulum. There are mild degenerative changes of both sacroiliac joints. There are [id number] degenerative changes of the right hip joint. XR/XR hip BI w PEL 1V IMPRESSION: 1. No acute fracture or dislocation of the pelvis or either hip is seen. If there is concern for an occult injury, cross-sectional imaging is recommended. Electronically authenticated by: Brant BURGESS Date: 11/13/2024 06:12 [place] [id number] XRay Report Signed Patient: JESÚS GONSALES MR#: [id number] : 1935 Acct:[id number] Age/Sex: 89 / F ADM Date: 11/13/24 Loc: ER Attending Dr: Ordering Physician: Yesi Urena Date of Service: 11/13/24 Procedure(s): XR knee SLIM 3V Accession Number(s): [id number] cc: Marybeth Faustin M.D.; Yesi Urena~ The [address] [address] Patient Name: JESÚS GONSALES MRN: [id number] date: 1935 Sex: F Assigned Patient Location: ER Current Patient Location: ER Accession/Order Number: [id number] Exam Date: 11/13/2024 05:30 Report Date: 11/13/2024 06:09 At the request of: YESI MARKER Procedure: XR knee SLIM 3V EXAM: XR knee SLIM 3V HISTORY: fall, kne pain COMPARISON: None. TECHNIQUE: 3 views of each knee were obtained. FINDINGS: Right knee: No acute fracture or dislocation is seen. There are moderate degenerative changes of the right knee. Chondrocalcinosis is seen within the right knee. There is no significant right knee joint effusion. Left knee: There are postsurgical changes of a total knee arthroplasty. No acute fracture or dislocation is seen. There is no significant left knee joint effusion. Atherosclerotic calcifications are noted. XR/XR knee SLIM 3V IMPRESSION: 1. No acute fracture or dislocation of either knee is seen. If pain persists, repeat radiographs are recommended in 7-10 days. Electronically authenticated by: Brant BURGESS Date: 11/13/2024 06:09 Discharge Plan Discharge Chief Complaint: Fall Clinical Impression: Unwitnessed fall, Contusion of knee and lower leg Patient Disposition: Home, Self-Care Time of Disposition Decision: 06:38 Condition: Good Prescriptions / Home Meds: No Action ascorbic acid (vitamin C) [Vitamin C] 500 mg tablet 500 mg PO .QD buspirone 10 mg tablet 10 mg PO BID calcitriol 0.25 mcg capsule 0.25 mcg PO .QD verapamil 180 mg tablet extended release 180 mg PO .QD hydralazine 25 mg tablet 25 mg PO BID hydrocodone-acetaminophen 10-325 mg tablet 1 tab PO Q8H PRN (Reason: pain) potassium chloride 20 mEq tablet,ER particles/crystals 20 meq PO .QD lorazepam 0.5 mg tablet 0.5 mg PO Q8H PRN (Reason: anxiety) pravastatin 10 mg tablet 10 mg PO QPM ferrous sulfate 325 mg (65 mg iron) tablet 325 mg PO .QD docusate sodium 100 mg capsule 100 mg PO BID furosemide 20 mg tablet 20 mg PO .QD multivitamin with folic acid [High Potency Multivitamin] 400 mcg tablet 1 tab PO .QD melatonin 10 mg tablet,disintegrating 10 mg PO .QHS PRN (Reason: sleep) Print Language: Nepali Instructions: Fall Prevention for Older Adults (ED), Contusion in Adults (ED), Musculoskeletal Pain (ED) Referrals: Marybeth Faustin MD [Primary Care Provider] - 1 week
--- NOTE | 2024-11-13 05:33 | PC.NURSE ---
Pt is from [facility].
--- OUTSIDE RECORDS SUMMARY | 2024-11-13 05:50 | XMS_ITS | CCD ---
Author Organization [facility] Care Team Providers Care 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 Name Role Phone Justino Dhaliwal Primary Care Provider CHELE LAGOS Admitting Unavailable CHELE LAGOS Attending Unavailable YAZMIN, JUSTINO Boone Primary Care Unavailable PENNY DOWNEY Consulting Unavailable CONSTANTIN ESCOBEDO Consulting Unavailable Justino Dhaliwal Primary Care Provider Carlos Carlin Admitting Unavailable Carlos Carlin Attending Unavailable YAZMINJUSTINO ALVARADO Primary Care Unavailab le YAZIMN, JUSTINO HUNG Consulting Unavailab le Yazmin Justino [...] Provider MD Brina Cordero Primary Care Provider [phone] MD Riky Bundy Admit Provider MD Riky Bundy Attending Provider Brina Cordero E Primary Care Unavailable Riky Bundy Admitting Unavailab Kishan Downs Attending Unavailable Justino Martinze Consulting Unavailable Unavailable Primary Care Provider UnavailHarsh Ireland Attending Unavailable Harsh CLAYTON Attending Unavailable Harsh CLAYTON Referring Unavailable Justino Martinez Attending Unavailable Justino Martinez Referring Unavailable Brina Cordero MD Primary Care Provider [phone] Brina Cordero MD Primary Care Provider [phone] GARLAND, RICCO Referring Unavailable O'WILEY, MARK Attending [...] Unavailable CORDERO, BRINA E Primary Care Unavailable Al Shweiki, Luis Attending Unavailable Al Yara, Luis Referring Unavailable Lucian Carvalho Jr Attending Unavailable Lucian Carvalho Jr Referring Unavailable Maia Santana MD, Lucian Unavailable Unavailable Brina Cordero MD Primary Care Provider [phone] ADELAIDA HUDSON Attending Unavailable ROXIE, BRINA Referring Unavailable FACUNDO, KODY A Attending Unavailable NEELAM CORDEROIA Referring Unavailable FACUNDO, KODY A Attending Unavailable FACUNDO, KODY A Attending Unavailable FACUNDO, KODY A Attending Unavailable FACUNDO, KODY A Attending Unavailable FACUNDO, KODY A Attending Unavailable ROXIE, BRINA Referring Unavailable Allergies Allergy Classification Reported Allergen(s) Allergy Type Date of Onset Reaction(s) Facility (1 source) No Known Medication Allergies; Translations: [No Known Medication Allergies] Propensity to adverse reactions to drug (disorder) [facility] Medications Current Medications Medication Drug Class(es) Dates Sig (Normalized) Sig (Original) acetaminophen 500 mg oral tablet (20 sources) Start: 10-20-2023 take 2 tablets by mouth every six hours as needed acetaminophen (TYLENOL EXTRA STRENGTH) 500 mg tablet Take 2 tablets by mouth every 6 hours as needed for pain. 10/20/2023 Active Start: 08-31-2023 take 2 tablets by mo uth four times daily as needed for pain [...] acetaminophen (TYLENOL) tablet 650 mg take 1 tablet by hailey every six hours as needed for pain acetaminophen (Tylenol) 325 MG tablet Take 325 mg by mouth every 6 (six) hours if needed for mild pain Active take 2 capsules by m outh every six hours as needed for pain acetaminophen 325 mg capsule give 650 mg by mouth every 6 hours as needed for pain - Active take 1 capsule by mo uth every [...] mg oral tablet (20 sources) Benzodiazepine Start: 020 End: 024 take 0.25 mg by mouth once daily as needed for sleep 0.25 mg, Oral, NIGHTLY PRN, Sleep, Starting Wed05/10/20 at 2100 aluminum hydroxide 40 mg/ml / magnesium hydroxide 40 mg/ml / simethicone 4 mg/ml oral suspension (2 sources) take 5 mL by mouth every six hours as needed for gastroesophageal reflux disease aluminum & magnesium hydroxide-simethi cone (Mylanta) 200-200-20 MG/5ML oral suspension Take 5 mL by mouth every 6 (six) hours if needed for indigestion or heartburn Active ascorbic acid 500 mg oral tablet (20 sources) Vitamin C Start: 023 take 1 tablet by mouth once daily Ascorbic Acid (Vitamin C) 500 mg Tablet Active 500 MG PO Daily August 31, 2023 12:00am take 2 tablets by mouth once melva ly Ascorbic Acid (vitamin C) 250 MG tablet Take 500 mg by mouth Daily Active take 1 capsule by mouth twice da serina ascorbic acid (vitamin C) 500 mg capsule give 500 mg by mouth two times per day for supplement - Active take 1 tablet by mouth twice melva [...] oral tablet (3 sources) Vitamin C Start: 2022 take 1 tablet by mouth at dinner Vitamins A,C,K-Inqj-Awpjdj (Preservision Areds) 2,148 mcg-113 mg-45 mg-17.4mg Tablet [...] ARE DS 2 - as directed Orally 484-69-73-1MG Active aspirin 81 mg delayed release oral tablet (1 source) Platelet Aggregation Inhibitor, Nonsteroidal Anti-inflammatory Drug aspirin 81 mg tablet,delayed release once daily - Active 4 ml bevacizumab 25 mg/ml injection (1 source) Vascular Endothelial Growth Factor Inhibitor Start: 2022 Avastin 25 mg/mL intravenous solution Direct Patient Administration Only - Active OU Comment on above: OU busPIRone hydrochloride 10 mg oral tablet (20 sources) Start: 2022 take 1 tablet by mouth twice daily Buspirone 10 mg Tablet Active 10 MG PO Twice daily August 31, 2023 12:00am Start: 05-10-2020 take 5 mg by mouth twice daily 5 mg, Oral, 2 TIMES DAILY, First dose on Wed05/10/20 at 2100 take 1 tablet by hailey three times daily buspirone 5 mg tablet take 1 tablet by oral route 3 times every day 5 MG - Active calcitriol 0.71653 mg oral capsule (20 sources) Vitamin D3 Analog Start: 08-31-2023 take 1 capsule by mouth once daily Calcitriol 0.25 mcg Capsule Active 0.25 MCG PO Daily August 31, 2023 12:00am take 3 capsules by mouth once da serina calcitriol 0.25 mcg capsule take 3 capsule by oral route every day 0.75 MCG - Active take 1 capsule by mo [facility] three times weekly Calcitriol 0.25 MCG 1 capsule Orally Thr ee times a Week Active take 1 capsule by mo [facility] three times weekly Calcitriol 0.25 MCG 1 capsule Orally Thr ee times a Week Active Comment on above: Take 0.25 mcg by hailey . calcium acetate 667 mg oral tablet (20 sources) Start: 3 take 1 tablet by mouth twice daily at mealtime Calcium Acetate 667 mg Tablet Active 667 MG PO Twice daily with meals August 31, 2023 12:00am cephalexin 500 mg oral capsule (4 sources) Cephalosporin Antibacterial Start: End: 4 take 1 capsule by mouth [...] Active diclofenac sodium 0.01 mg/mg topical gel (19 sources) Nonsteroidal Anti-inflammatory Drug Start: 09-04-2023 diclofenac (VOLTAREN) 1 % topical gel 09/04/2023 Active diclofenac (Volt aren) 0.1 % ophthalmic solution 1 drop in the morning and 1 drop at noon and 1 drop in the evening and 1 drop before bedtime. Active Voltaren 1 % as directed Externally Active Voltaren 1 % as directed Externally Active docusate sodium 100 mg oral capsule (20 sources) Start: 08-31-2023 take 1 capsule by mouth twice daily Docusate Sodium 100 mg Capsule Active 100 MG PO Twice daily August 31, 2023 12:00am Start: 05-11-2020 take 100 mg by mouth once quni y 100 mg, Oral, DAILY, First dose on 05/11/20 at 0900 Do not crush or break. Comment on above: Take 100 mg by mouth . doxepin 6 mg oral tablet (3 sources) Tricyclic Antidepressant Start: 08-16-2024 take 1 tablet by mouth once daily at bedtime Doxepin 6 mg tablet Active 6 MG PO Daily at bedtime August 16, 2024 12:00am take 1 capsule by mouth at bedti ut doxepin (SINEquan) 10 MG capsule Take 10 mg by mouth at bedtime Active 0.4 ml enoxaparin sodium 100 mg/ml prefilled [...] 12:00am take 1 tablet by hailey th three times daily at mealtime hydralazine 25 mg tablet take 1 tablet b y oral route 3 times every day with food 25 MG - Active Comment on above: Take 25 mg by mouth. hydroCHLOROthiazide 25 mg oral tablet (12 sources) Thiazide Diuretic End: 0 hydrochlorothiazide 25 mg tablet once daily - Active lactulose 667 mg/ml oral solution (20 sources) Osmotic Laxative Start: 3 lactulose 10 gram/15 mL solution 09/04/2023 Active [...] day prn for 30 days Dec, Active take 20 g by mouth i n the morning, then take 20 g by mouth in the evening, then take 20 g by mouth at bedtime lactulose (Chronulac) 10 GM/15ML solution Take 20 g by mouth in the morning and 20 g in the evening and 20 g before bedtime. Active levoFLOXacin 500 mg oral tablet (2 [...] NIGHTLY, First dose on Wed05/10/20 at 2100 Melatonin 10 MG capsule Take by mouth Active take 1 tablet by hailey th at bedtime melatonin 5 mg capsule one tablet by mouth at bedtime - Active take 1 tablet by hailey th every twenty-four hours Melatonin 5 MG 1 tablet in the evening Orally Once a day Active take 5 mg by mouth once daily me latonin 3 MG TABS tablet Take 5 mg by mouth nightly 0 Active meloxicam 7.5 mg oral tablet (12 sources) Nonsteroidal Anti-inflammatory Drug End: 04-06-2020 meloxicam 7.5 mg tablet once daily - Active morphine (PF) injection 2 mg (1 source) Start: 05-10-2020 morphine (PF) injection 2 mg Multiple Vitamins-Minerals (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 Active 1000 ml potassium chloride 0.02 meq/ml / [...] mouth. 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 b.I.d. 30 tablet 3 11/02/2024 Active take 1 tablet by mouth once quin y Seroquel 25 mg tablet take 1 tablet by oral route every day 25 MG - Active take 1 tablet by mouth twice melva ly QUEtiapine (SEROQUEL) 25 MG tablet Take 25 mg by mouth 2 times daily 0 Active tamsulosin hydrochloride 0.4 mg oral capsule (10 sources) alpha-Adrenergic Ellie Start: 10-20-2023 tamsulosin (FLOMAX) 0.4 mg Take 1 capsule by mouth once daily. 30 minutes after the same meal each day. 30 capsule 10/20/2023 Active Comment on above: Take 1 capsule by [facility] daily. 30 minutes after the same meal each day. Therapeutic-M Vitamin/Minerals 27 mg-0.4 mg tablet (1 source) take 1 tablet by mouth in the morning Therapeutic-M Vitamin/Mineral s 27 mg-0.4 mg tablet give one tablet by mouth in the morning for supplement - Active verapamil hydrochloride 180 mg extended release oral tablet (20 sources) Calcium Channel Ellie Start: 04-03-2020 take 1 tablet by mouth at bedtime Verapamil 180 mg Tablet Extended Release Active 180 MG PO Bedtime August 31, 2023 12:00am take 1 capsule by mo [facility] every twenty-four hours at bedtime verapamil ER (Verelan) 180 MG 24 hr capsule Take 180 mg by mouth at bedtime Do not crush or chew. Active Comment on above: Take 180 mg by [...] Start: 07-21-2023 take 1 tablet by hailey every six hours HYDROcodone-Acetaminophen 10-325 MG 1 [...] tablet by hailey th every six hours as needed for pain HYDROcodone-acetaminophen ([place]) 5-325 MG tablet Take 1 tablet by mouth every 6 (six) hours if needed for severe pain Active take 1 tablet by hailey th every four hours as needed for pain hydrocodone 5 mg-acetaminophen 325 mg tablet take 1 tablet by oral route every 4 hours as needed for pain 1 tablet - Active amoxicillin 500 mg oral tablet (2 [...] on Wed05/10/20 at 2100, Last dose on 05/11/20 at 0500 ciprofloxacin 250 mg oral tablet [...] 16, 2024 11:18am administer into each nostril 1 ml ketorolac tromethamine 30 mg/ml cartridge [...] mg oral tablet (11 sources) Antiemetic End: 0 take 1 tablet by mouth three times daily as needed meclizine (ANTIVERT) 25 MG tablet Take 25 mg by mouth 3 times daily as needed 0 04/06/2020 Discontinued (Stop Taking at Discharge) 1 ml morphine sulfate 2 mg/ml injection (7 sources) Opioid Agonist Start: 0 End: 0 morphine 2 MG/ML injection Start: 05-10-2020 End: [...] Translations: [Generalized anxiety disorder] Onset: 3 Chronic Blindness and vision defects (3 sources) Psychophysical visual disturbances; 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 EHR Cmte Cataract (20 sources) Presence of intraocular lens; Translations: [Age-related nuclear cataract, left eye] Onset: 4 Chronic Chronic kidney disease (20 [...] dementia, and amnestic and other cognitive disorders (7 sources) Dementia; Translations: [Unspecified dementia without behavioral disturbance] Onset: 3 09-01-2023 Chronic Comment on above: Problem List clean-u p per request of Phys. EHR Cmte Essential hypertension (20 sources) Hypertensive disorder; Translations: [Essential (primary) hypertension] Onset: 3 09-01-2023 Chronic Comment on above: Problem List clean-u p per request of Phys. 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), both eyes] Onset: 4 Chronic Other eye disorders (2 sources) Dry eye syndrome of bilateral lacrimal glands; Translations: [Dry eyes, bilateral] Onset: 4 Episodic Other eye disorders (1 source) Cysts of right lower eyelid Episodic Other gastrointestinal disorders (18 sources) Slow [...] unspecified] Onset: 3 Episodic Residual codes; unclassified (12 sources) Delirium; [...] macula ; Translations: [Unspecified macular degeneration] Onset: 7 Resolved: 4 10-08-2016 Chronic Skin and subcutaneous tissue infections (20 [...] right upper limb] Onset: 04-02-2020 04-03-2020 Episodic Unclassified (4 sources) Exudative ARMD (chief complaint) Onset: 06-10-2022 Resolved: 01-13-2024 Unclassified (5 sources) AMD (chief complaint) Onset: 04-30-2021 Resolved: 09-08-2023 Unclassified (1 source) macular degeneration followup (chief complaint) Onset: 12-03-2021 Unclassified (1 source) 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) Onset: 07-23-2021 Unclassified (1 source) 4 wk INJ 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 (chief complaint) Onset: 03-04-2021 Unclassified (1 source) 6 month fu due to exdtve AMD w/ actv chrdl neovas (chief complaint) decrease in vision (chief complaint) Onset: 02-04-2021 Unclassified (3 sources) macular degeneration (chief complaint) stable vision (chief complaint) Onset: 12-29-2018 Resolved: 07-18-2020 Unclassified (1 source) AMD (chief complaint) fuzzy vision (chief complaint) Onset: 12-29-2019 Unclassified (1 source) macular degeneration (chief complaint) denies new vision change (chief complaint) Onset: 12-30-2017 Unclassified (1 source) macular degeneration (chief complaint) denies vision change (chief complaint) Onset: 04-22-2017 Unclassified (1 source) macular degeneration (chief complaint) no change (chief complaint) Onset: 01-14-2017 Unclassified (1 source) an injection only (chief complaint) Onset: 11-12-2016 Unclassified (1 source) possible macular degeneration (chief complaint) decreased vision (chief complaint) stable vision (chief complaint) Onset: 10-08-2016 Results Test Name Value Interpretation Reference Range Facility OVon 07-28-2024 CNOV Office Visit (UROLMN ) JESÚS NOLAN ([id number]) 1935 F Date Time Provider Department 07/28/24 3:00 PM MARK CESAR During your visit today, [...] Assessment/Plan: Encou (more content not included)... Normal [facility] URINALYSIS, REFLEX MICROSCOP ICon 07-28-2024 Bilirubin Ql (U) Negative Negative [facility] Clarity (Unsp spec) Clear Clear [facility] Color (U) Yellow Yellow [facility] Glucose Test strip (U) [Mass/Vol] Negative Negative [facility] Hemoglobin Ql (U) Negative Negative [facility] Interpretation and review of laboratory results Normal [facility] Ketones Ql (U) Negative Negative [facility] Leukocyte esterase Test strip Ql (U) Negative Negative [facility] Nitrite Ql (U) Negative Negative [facility] pH (U) 6.5 [pH] NINF - 8.5 [facility] Protein (U) [Mass/Vol] Negative Negative [facility] Specific gravity (U) [Rel density] 1.010 1.005 - 1.030 [facility] Urobilinogen Ql (U) 0.2 EU/dL 0.2-1.0 EU/dL [facility] Bilirubin Ql (U) Negative Normal Negative [facility] Comment on above: Order Comment: Speci men Type: URINE SPECIMENOrdering Facility: [facility] Address: [address] [place] [address] Performed By: #### L [id number] ####[facility] LABCLIA [id number] [place] [address] [place] Clarity (Unsp spec) Clear Normal Clear [facility] Comment on above: Order Comment: Speci men Type: URINE SPECIMENOrdering Facility: [facility] Address: [address] [place] [address] Performed By: #### L [id number] ####[facility] LABCLIA [id number] [place] [address] [place] Color (U) Yellow Normal Yellow [facility] Comment on above: Order Comment: Speci men Type: URINE SPECIMENOrdering Facility: [facility] Address: [address] [place] [address] Performed By: #### L [id number] ####[facility] LABCLIA [id number] [place] [address] [place] Glucose Test strip (U) [Mass/Vol] Negative Normal Negative [facility] Comment on above: Order Comment: Speci men Type: URINE SPECIMENOrdering Facility: [facility] Address: [address] [place] [address] Performed By: #### L [id number] ####[facility] LABCLIA [id number] [place] [address] [place] Hemoglobin Ql (U) Negative Normal Negative [facility] Comment on above: Order Comment: Speci men Type: URINE SPECIMENOrdering Facility: [facility] Address: [address] [place] [address] Performed By: #### L [id number] ####[facility] LABCLIA [id number] [place] [address] [place] Ketones Ql (U) Negative Normal Negative [facility] Comment on above: Order Comment: Speci men Type: URINE SPECIMENOrdering Facility: [facility] Address: [address] [place] [address] Performed By: #### L [id number] ####[facility] LABCLIA [id number] [place] [address] [place] Leukocyte esterase Test strip Ql (U) Negative Normal Negative [facility] Comment on above: Order Comment: Speci men Type: URINE SPECIMENOrdering Facility: [facility] Address: [address] [place] [address] Performed By: #### L [id number] ####[facility] LABCLIA [id number] [place] [address] [place] Nitrite Ql (U) Negative Normal Negative [facility] Comment on above: Order Comment: Speci men Type: URINE SPECIMENOrdering Facility: [facility] Address: [address] [place], [place] [id number] Performed By: #### L [id number] ####[facility] LABCLIA [id number] [place] [address] [place] pH (U) 6.5 [pH] Normal <8.5 [facility] Comment on above: Order Comment: Speci men Type: URINE SPECIMENOrdering Facility: [facility] Address: [address] [place], [place] [id number] Performed By: #### L [id number] ####[facility] LABCLIA [id number] [place] [address] [place] Protein (U) [Mass/Vol] Negative Normal Negative [facility] Comment on above: Order Comment: Speci men Type: URINE SPECIMENOrdering Facility: [facility] Address: [address] [place] [address] Performed By: #### L [id number] ####[facility] LABIA [id number] [place] [address] [place] Specific gravity (U) [Rel density] 1.010 Normal 1.005-1.030 [facility] Comment on above: Order Comment: Speci men Type: URINE SPECIMENOrdering Facility: [facility] Address: [address] [place] [address] Performed By: #### L [id number] ####[facility] LABIA [id number] [place] [address] [place] Urobilinogen Ql (U) 0.2 EU/dL Normal 0.2-1.0 EU/dL [facility] Comment on above: Order Comment: Speci men Type: URINE SPECIMENOrdering Facility: [facility] Address: [address] [place] [address] Performed By: #### L [id number] ####[facility] LABIA [id number] [place] [address] [place] Basophils Auto (Bld) [#/Vol] on 06-28-2024 Basophils (Bld) [#/Vol] Automated basoph il count 0.0-0.1 [facility] Basophils/100 WBC Auto (Bld) on 06-28-2024 Basophils/100 WBC (Bld) Automated basophil % 0. 2-2.0 [facility] Eosinophils/100 WBC Auto (Bl d)on 06-28-2024 Eosinophils/100 WBC (Bld) Automated eosinophil % 0.9-7.0 [facility] Erythrocyte distribution wid th Auto (RBC) [Ratio]on 06-28-2024 Erythrocyte distribution width (RBC) [Ratio] Erythrocyte distribution width [Ratio] by Automated count 11.0-15.0 [facility] Estimated glomerular filtrat ion rate (GFR) non- Americanon 06-28-2024 GFR/1.73 sq M.predicted among non-blacks MDRD (S/P/Bld) [Vol rate/Area] Estimated glomerular filtration rate (GFR) non- Low >=60 mL/min/1.73 m 2 [facility] Hematocrit Auto (Bld) [Volum e fraction]on 06-28-2024 Hematocrit (Bld) [Volume fraction] Hematocrit [Volume Fraction] of Blood by Automated count 36.0-48.0 [facility] Hemoglobin [Mass/volume] in Bloodon 06-28-2024 Hemoglobin (Bld) [Mass/Vol] Hemoglobin [Mass/volume] in Blood 12.0-16.0 [facility] Laboratory - Chemistry and C hemistry - challengeon 06-28-2024 Albumin [Mass/Vol] 3.2 g/dL Low 3.4-5.0 [facility] Calcium [Mass/Vol] 9.0 mg/dL 8.5-10.1 [facility] Chloride [Moles/Vol] 103 mmol/L 98-107 [facility] CO2 [Moles/Vol] 28.3 mmol/L 21.0-32.0 [facility] Creatinine [Mass/Vol] 1.86 mg/dL High 0.55-1.02 [facility] GFR/1.73 sq M.predicted MDRD (S/P/Bld) [Vol rate/Area] 31 mL/min/{1.73_m2} Low >=60 mL/min/1.73 m 2 [facility] Glucose [Mass/Vol] 117 mg/dL High 74-106 [facility] Magnesium [Mass/Vol] 2.2 mg/dL 1.8-2.4 [facility] Potassium [Moles/Vol] 3.8 mmol/L 3.5-5.1 [facility] Sodium [Moles/Vol] 141 mmol/L 136-145 [facility] Urate [Mass/Vol] 6.0 mg/dL 2.6-6.0 [facility] Urea nitrogen [Mass/Vol] 30.0 mg/dL High 7.0-18.0 [facility] Urea nitrogen/Creatinine [Mass ratio] 16.1 mg/mg [facility] Laboratory - Hematology and Cell countson 06-28-2024 Immature granulocytes/100 WBC (Bld) 0.2 % 0.0-0.5 [facility] Leukocytes [#/volume] correc tavia for nucleated erythrocytes in Blood by Automated counon 06-28-2024 WBC corrected for nucl RBC Auto (Bld) [#/Vol] Leukocytes [#/volume] corrected for nucleated erythrocytes in Blood by Automated coun 4.0-11.0 [facility] Lymphocytes Auto (Bld) [#/Vo l]on 06-28-2024 Lymphocytes (Bld) [#/Vol] Lymphocytes [#/volume] in Blood by Automated count 1.2-3.8 [facility] Lymphocytes/100 WBC Auto (Bl d)on 06-28-2024 Lymphocytes/100 WBC (Bld) Lymphocytes/100 leukocytes in Blood by Automated count 20.5-60.0 [facility] MCH Auto (RBC) [Entitic mass ]on 06-28-2024 MCH (RBC) [Entitic mass] MCH [Entitic ma ss] by Automated count 26.7-34.0 [facility] MCHC Auto (RBC) [Mass/Vol]on 06-28-2024 MCHC (RBC) [Mass/Vol] MCHC [Mass/volume] by Automated count 29.9-35.2 [facility] MCV Auto (RBC) [Entitic vol] on 06-28-2024 MCV (RBC) [Entitic vol] MCV [Entitic vol ume] by Automated count 81.0-99.0 [facility] Monocytes Auto (Bld) [#/Vol] on 06-28-2024 Monocytes (Bld) [#/Vol] Automated blood monocyte count 0.3-0.8 [facility] Monocytes/100 WBC Auto (Bld) on 06-28-2024 Monocytes/100 WBC (Bld) Automated monocyte % 1. 7-12.0 [facility] Neutrophils Auto (Bld) [#/Vo l]on 06-28-2024 Neutrophils (Bld) [#/Vol] Neutrophils [#/volume] in Blood by Automated count 1.4-6.5 [facility] Neutrophils/100 WBC Auto (Bl d)on 06-28-2024 Neutrophils/100 WBC (Bld) Automated neutrophil % 43.0-75.0 [facility] No Panel Informationon 06-28 Eosinophils # (Auto) 0.2 10 3/uL 0.0-0.7 [facility] Immature Granulocyte # (Auto) 0.01 10 3/uL 0.00-0.03 [facility] Parathyroid Hormone (Intact) 86 pg/mL Abnormal 15-65 [facility] Comment on above: Performed at: [facility] [employer] [place] [id number] Director: Sriram Knapp PhD, Phone: [phone] Phosphorus Level 3.9 mg/dL 2.6-4.7 [facility] Platelet mean volume Auto (B ld) [Entitic vol]on 06-28-2024 Platelet mean volume (Bld) [Entitic vol] Platelet mean volume [Entitic volume] in Blood by Automated count 9.5-13.5 [facility] Platelets Auto (Bld) [#/Vol] on 06-28-2024 Platelets (Bld) [#/Vol] Platelets [#/vol ume] in Blood by Automated count 150-450 [facility] RBC Auto (Bld) [#/Vol]on RBC (Bld) [#/Vol] Erythrocytes [#/volume] in Blood by Automated count Low 4.20-5.40 [facility] Serum or plasma anion gap de terminationon 06-28-2024 Anion gap [Moles/Vol] Serum or plasma an ion gap determination [facility] Laboratory - Chemistry and C hemistry - challengeon 06-27-2024 Bilirubin Ql (U) Negative NEGATIVE [facility] Glucose (U) [Mass/Vol] Negative NE[facility]IVE [facility] Ketones Ql (U) Negative NEGATIVE [facility] pH (U) 6.0 [pH] 5.0-9.0 [facility] Specific gravity (U) [Rel density] 1.015 1.005-1.025 [facility] Urobilinogen Qn (U) 0.2 {Gerard'U}/dL 0.2-1.0 [facility] Laboratory - Specimen inform ationon 06-27-2024 Appearance (U) CLEAR CLEAR [facility] Color (U) LT. YELLOW YELLOW [facility] Laboratory - Urinalysison Leukocyte esterase Test strip Ql (U) Negative NEGATIVE [facility] Nitrite Ql (U) Negative NEGATIVE [facility] Protein Ql (U) Negative NEG/TRACE [facility] No Panel Informationon 06-27 Urine Microscopic Review NO [facility] Urine Occult Blood Negative NEGATIVE [facility] Urine Random Creatinine 17.32 mg/dL Low 20.0 0-300.0 0 [facility] Urine Random Total Protein <6.0 mg/dL <=11.9 [facility] Urine protein/creatinine rat ioon 06-27-2024 Protein/Creatinine (U) [Ratio] Urine protein/creatinine ratio [facility] Laboratory - Microbiology an d Antimicrobial susceptibilityon 05-22-2024 Bacteria identified Cx Nom (U) [facility] No Panel Informationon 05-22 Miscellaneous Test Comment See comment [facility] Comment on above: Specimen Source: UCC - Urine,Clean Catch - Urine [facility] ([id number]) 1935 F Date Time Provider Department 02/17/24 [...] seen in either kidney. Will update Mark O'Wiley to review actual imaging and advise on [...] with US/KUB in 6 months. No answer, [facility] with phone number to return call to [...] Encounter Status:Closed by MONI CHAUDHARI on 02/17/24 [facility] CNPIrma 01-31-2024 CNPN Telephone (URFMOB) JESÚS NOLAN ([id number]) 1935 F Date Time Provider Department 01/31/24 [...] Encounter Status:Closed by YULY HERNANDEZ on 02/01/24 Normal [facility] Basophils Auto (Bld) [#/Vol] on 01-10-2024 Basophils (Bld) [#/Vol] 0.0 10 3/uL 0.0-0.1 [facility] Basophils/100 WBC Auto (Bld) on 01-10-2024 Basophils/100 WBC (Bld) 0.1 % 0.2-2.0 [facility] Eosinophils/100 WBC Auto (Bl d)on 01-10-2024 Eosinophils/100 WBC (Bld) 2.0 % 0.9-7.0 [facility] Erythrocyte distribution wid th Auto (RBC) [Ratio]on 01-10-2024 Erythrocyte distribution width (RBC) [Ratio] 12.6 % 11.0-15.0 [facility] Estimated glomerular filtrat ion rate (GFR) non- Americanon 01-10-2024 GFR/1.73 sq M.predicted among non-blacks MDRD (S/P/Bld) [Vol rate/Area] 21 mL/min/{1.73_m2} >=60 [facility] Hematocrit Auto (Bld) [Volum e fraction]on 01-10-2024 Hematocrit (Bld) [Volume fraction] 35.0 % 36.0-48.0 [facility] Hemoglobin [Mass/volume] in Bloodon 01-10-2024 Hemoglobin (Bld) [Mass/Vol] 10.9 g/dL 12.0-16.0 [facility] Laboratory - Chemistry and C hemistry - challengeon 01-10-2024 Albumin [Mass/Vol] 2.5 g/dL 3.4-5.0 [facility] Calcium [Mass/Vol] 8.9 mg/dL 8.5-10.1 [facility] Chloride [Moles/Vol] 104 mmol/L 98-107 [facility] CO2 [Moles/Vol] 27.0 mmol/L 21.0-32.0 [facility] Creatinine [Mass/Vol] 2.22 mg/dL 0.55-1.02 [facility] GFR/1.73 sq M.predicted MDRD (S/P/Bld) [Vol rate/Area] 25 mL/min/{1.73_m2} >=60 [facility] Glucose [Mass/Vol] 125 mg/dL 74-106 [facility] Magnesium [Mass/Vol] 2.1 mg/dL 1.8-2.4 [facility] Potassium [Moles/Vol] 3.8 mmol/L 3.5-5.1 [facility] Sodium [Moles/Vol] 142 mmol/L 136-145 [facility] Urate [Mass/Vol] 6.7 mg/dL 2.6-6.0 [facility] Urea nitrogen [Mass/Vol] 32.0 mg/dL 7.0-18.0 [facility] Urea nitrogen/Creatinine [Mass ratio] 14.4 mg/mg [facility] Laboratory - Hematology and Cell countson 01-10-2024 Immature granulocytes/100 WBC (Bld) 1.5 % 0.0-0.5 [facility] Leukocytes [#/volume] correc tavia for nucleated erythrocytes in Blood by Automated counon 01-10-2024 WBC corrected for nucl RBC Auto (Bld) [#/Vol] 7.4 10 3/uL 4.0-11.0 [facility] Lymphocytes Auto (Bld) [#/Vo l]on 01-10-2024 Lymphocytes (Bld) [#/Vol] 1.9 10 3/uL 1.2-3.8 [facility] Lymphocytes/100 WBC Auto (Bl d)on 01-10-2024 Lymphocytes/100 WBC (Bld) 26.1 % 20.5-60.0 [facility] MCH Auto (RBC) [Entitic mass ]on 01-10-2024 MCH (RBC) [Entitic mass] 30.3 pg 26.7-34.0 [facility] MCHC Auto (RBC) [Mass/Vol]on 01-10-2024 MCHC (RBC) [Mass/Vol] 31.1 g/dL 29.9-35.2 [facility] MCV Auto (RBC) [Entitic vol] on 01-10-2024 MCV (RBC) [Entitic vol] 97.2 fL 81.0-99.0 [facility] Monocytes Auto (Bld) [#/Vol] on 01-10-2024 Monocytes (Bld) [#/Vol] 0.8 10 3/uL 0.3-0.8 [facility] Monocytes/100 WBC Auto (Bld) on 01-10-2024 Monocytes/100 WBC (Bld) 10.6 % 1.7-12.0 [facility] Neutrophils Auto (Bld) [#/Vo l]on 01-10-2024 Neutrophils (Bld) [#/Vol] 4.4 10 3/uL 1.4-6.5 [facility] Neutrophils/100 WBC Auto (Bl d)on 01-10-2024 Neutrophils/100 WBC (Bld) 59.7 % 43.0-75.0 [facility] No Panel Informationon 01-09 Eosinophils # (Auto) 0.2 10 3/uL 0.0-0.7 [facility] Immature Granulocyte # (Auto) 0.11 10 3/uL 0.00-0.03 [facility] Parathyroid Hormone (Intact) 49 pg/mL [facility] Comment on above: Performed at: [facility] [address] [id number] Director: Sriram Knapp PhD, Phone: [phone] Phosphorus Level 4.1 mg/dL 2.6-4.7 [facility] Platelet mean volume Auto (B ld) [Entitic vol]on 01-10-2024 Platelet mean volume (Bld) [Entitic vol] 10.0 fL 9.5-13.5 [facility] Platelets Auto (Bld) [#/Vol] on 01-10-2024 Platelets (Bld) [#/Vol] 285 10 3/uL 150-450 [facility] RBC Auto (Bld) [#/Vol]on RBC (Bld) [#/Vol] 3.60 10 6/uL 4.20-5.40 [facility] Serum or plasma anion gap de terminationon 01-10-2024 Anion gap [Moles/Vol] 14.8 mmol/L [facility] Automated urine specific gra vity by refractometryon 01-09-2024 Specific gravity Refractometry automated (U) [Rel density] 1.015 1.005-1.025 [facility] Bilirubin Auto test strip (U ) [Mass/Vol]on 01-09-2024 Bilirubin (U) [Mass/Vol] Negative NEGATIVE [facility] Color Auto (U)on 01-09-2024 Color (U) LT. YELLOW YELLOW [facility] Ketones Auto test strip (U) [Mass/Vol]on 01-09-2024 Ketones (U) [Mass/Vol] Negative NEGATIVE [facility] Laboratory - Urinalysison Protein (U) [Mass/Vol] 25.2 mg/dL <=11.9 [facility] No Panel Informationon 01-08 Urine Microscopic Review NO [facility] Urine Random Creatinine 59.29 mg/dL 20.0 0-300.0 0 [facility] Protein Auto test strip (U) [Mass/Vol]on 01-09-2024 Protein (U) [Mass/Vol] Negative NEG/TRACE [facility] Specific gravity Auto test s trip (U) [Rel density]on 01-09-2024 Specific gravity (U) [Rel density] CLEAR CLEAR [facility] Urine glucose measurement by test strip (mass/volume)on 01-09-2024 Glucose Test strip (U) [Mass/Vol] Negative NEGATIVE [facility] Urine hemoglobin detection b y automated test stripon 01-09-2024 Hemoglobin Auto test strip Ql (U) Negative NEGATIVE [facility] Urine nitrite detection by a utomated test stripon 01-09-2024 Nitrite Auto test strip Ql (U) Negative NEGATIVE [facility] Urine protein/creatinine rat ioon 01-09-2024 Protein/Creatinine (U) [Ratio] 0.43 [facility] Urobilinogen Auto test strip (U) [Mass/Vol]on 01-09-2024 Urobilinogen Qn (U) 0.2 {Gerard'U}/dL 0.2-1.0 [facility] pH Auto test strip (U)on pH (U) 6.0 [pH] 5.0-9.0 [facility] CNPNon 01-04-2024 CNPN Telephone (UROLMN) OVIDIOJESÚS ([id number]) 1935 F Date Time Provider Department 01/04/24 MARK CESAR During your visit today, we recorded the following information about you: Alex Davilafany 01/04/2024 10:24 AM Signed Mailed pt CT [...] Status:Closed by KHUSHBOO DAVILA on 01/04/24 Normal [facility] Laboratory - Microbiology an d Antimicrobial susceptibilityOrdered By: Brina Cordero on 01-04-2024 Bacteria identified Cx Nom (U) [facility] CNPNon 12-08-2023 CNPN Telephone (URFMOB) JESÚS NOLAN ([id number]) 1935 F Date Time Provider Department 12/08/23 MARK CESARRACHEL During your visit today, we recorded the [...] Diagnosis:Nephrolithia sis [N20.0] Order(s):CT FLANK WO IVCON [[id number]] Order #: [id number] FUTURE Prescriptions as of 12/08/2023 - acetaminophen [...] Encounter Status:Closed by [facility]AR on 12/08/23 [facility] Office [facility] (UROLMN ) JESÚS NOLAN ([id number]) 1935 F Date Time Provider Department 12/06/23 [...] Monocytes % 10/17/2023 9.5 % Final Abs Gallia 10/17/2023 0.68 <0.87 k/uL Final Eosinophils % [...] (H) 74 - 99 mg/dL Final The [place] [employer] (ADA) provides guidance for cutoff [...] Standards of Medical Care in Diabetes 2016, [place] [employer]. Diabetes Care. 2016.39(Suppl 1). BUN 10/17/2023 30 (H) 7 - 21 mg/dL Final Creatinine 10/17/2023 2.11 (H) 0.58 - 0.96 mg/dL Final Sodium 10/17/2023 143 (more content not included)... Normal [facility] US KIDNEY/BLADDERon 12-06-19 24 US KIDNEY/BLADDER * [...] with Dr. Garland at 1:55pm on 12/06/23 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: [facility] Transcribe Date/Time: Dec 06 2023 1:44P Dictated by : ERICA OSBORN MD This examination was interpreted and the report reviewed and electronically signed by: ERICA OSBORN MD on Dec 06 2023 1:58PM EST [id number] Normal [facility] Kidney - bilateral and Ur inary bladderon 12-06-2023 [facility] XR ABDOMEN 3V KUB W/OBLIQUES on [...] clips. Bones: Left hip prosthesis. Degenerative changes. 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: [facility] Transcribe Date/Time: Dec 06 2023 2:00P Dictated by : ERICA OSBORN MD This examination was interpreted and the report reviewed and electronically signed by: ERICA OSBORN MD on Dec 06 2023 2:02PM EST [id number] Normal [facility] XR Abdomen GE 3 Views AP and Oblique and Coneon 12-06-2023 [facility] Basophils Auto (Bld) [#/Vol] on 11-12-2023 Basophils (Bld) [#/Vol] 0.0 10 3/uL 0.0-0.1 [facility] Basophils/100 WBC Auto (Bld) on 11-12-2023 Basophils/100 WBC (Bld) 0.2 % 0.2-2.0 [facility] Eosinophils/100 WBC Auto (Bl d)on 11-12-2023 Eosinophils/100 WBC (Bld) 3.8 % 0.9-7.0 [facility] Erythrocyte distribution wid th Auto (RBC) [Ratio]on 11-12-2023 Erythrocyte distribution width (RBC) [Ratio] 13.6 % 11.0-15.0 [facility] Estimated glomerular filtrat ion rate (GFR) non- Americanon 11-12-2023 GFR/1.73 sq M.predicted among non-blacks MDRD (S/P/Bld) [Vol rate/Area] 23 mL/min/{1.73_m2} >=60 [facility] Hematocrit Auto (Bld) [Volum e fraction]on 11-12-2023 Hematocrit (Bld) [Volume fraction] 35.0 % 36.0-48.0 [facility] Hemoglobin [Mass/volume] in Bloodon 11-12-2023 Hemoglobin (Bld) [Mass/Vol] 10.7 g/dL 12.0-16.0 [facility] Laboratory - Chemistry and C hemistry - challengeon 11-12-2023 Albumin [Mass/Vol] 2.9 g/dL 3.4-5.0 [facility] Calcium [Mass/Vol] 8.5 mg/dL 8.5-10.1 [facility] Chloride [Moles/Vol] 104 mmol/L 98-107 [facility] CO2 [Moles/Vol] 29.4 mmol/L 21.0-32.0 [facility] Creatinine [Mass/Vol] 2.08 mg/dL 0.55-1.02 [facility] GFR/1.73 sq M.predicted MDRD (S/P/Bld) [Vol rate/Area] 27 mL/min/{1.73_m2} >=60 [facility] Glucose [Mass/Vol] 110 mg/dL 74-106 [facility] Magnesium [Mass/Vol] 2.2 mg/dL 1.8-2.4 [facility] Potassium [Moles/Vol] 4.3 mmol/L 3.5-5.1 [facility] Sodium [Moles/Vol] 142 mmol/L 136-145 [facility] Urate [Mass/Vol] 5.9 mg/dL 2.6-6.0 [facility] Urea nitrogen [Mass/Vol] 32.0 mg/dL 7.0-18.0 [facility] Urea nitrogen/Creatinine [Mass ratio] 15.4 mg/mg [facility] Laboratory - Hematology and Cell countson 11-12-2023 Immature granulocytes/100 WBC (Bld) 0.2 % 0.0-0.5 [facility] Leukocytes [#/volume] correc tavia for nucleated erythrocytes in Blood by Automated counon 11-12-2023 WBC corrected for nucl RBC Auto (Bld) [#/Vol] 5.7 10 3/uL 4.0-11.0 [facility] Lymphocytes Auto (Bld) [#/Vo l]on 11-12-2023 Lymphocytes (Bld) [#/Vol] 2.1 10 3/uL 1.2-3.8 [facility] Lymphocytes/100 WBC Auto (Bl d)on 11-12-2023 Lymphocytes/100 WBC (Bld) 36.9 % 20.5-60.0 [facility] MCH Auto (RBC) [Entitic mass ]on 11-12-2023 MCH (RBC) [Entitic mass] 31.7 pg 26.7-34.0 [facility] MCHC Auto (RBC) [Mass/Vol]on 11-12-2023 MCHC (RBC) [Mass/Vol] 30.6 g/dL 29.9-35.2 [facility] MCV Auto (RBC) [Entitic vol] on 11-12-2023 MCV (RBC) [Entitic vol] 103.6 fL 81.0-99.0 [facility] Monocytes Auto (Bld) [#/Vol] on 11-12-2023 Monocytes (Bld) [#/Vol] 0.7 10 3/uL 0.3-0.8 [facility] Monocytes/100 WBC Auto (Bld) on 11-12-2023 Monocytes/100 WBC (Bld) 11.7 % 1.7-12.0 [facility] Neutrophils Auto (Bld) [#/Vo l]on 11-12-2023 Neutrophils (Bld) [#/Vol] 2.7 10 3/uL 1.4-6.5 [facility] Neutrophils/100 WBC Auto (Bl d)on 11-12-2023 Neutrophils/100 WBC (Bld) 47.2 % 43.0-75.0 [facility] No Panel Informationon 11-12 Eosinophils # (Auto) 0.2 10 3/uL 0.0-0.7 [facility] Immature Granulocyte # (Auto) 0.01 10 3/uL 0.00-0.03 [facility] Parathyroid Hormone (Intact) 57 pg/mL 15-65 [facility] Comment on above: Performed at: [address] [id number] Director: Sriram Knapp PhD, Phone: [phone] Phosphorus Level 3.8 mg/dL 2.6-4.7 [facility] Platelet mean volume Auto (B ld) [Entitic vol]on 11-12-2023 Platelet mean volume (Bld) [Entitic vol] 10.5 fL 9.5-13.5 [facility] Platelets Auto (Bld) [#/Vol] on 11-12-2023 Platelets (Bld) [#/Vol] 260 10 3/uL 150-450 [facility] RBC Auto (Bld) [#/Vol]on RBC (Bld) [#/Vol] 3.38 10 6/uL 4.20-5.40 [facility] Serum or plasma anion gap de terminationon 11-12-2023 Anion gap [Moles/Vol] 12.9 mmol/L [facility] CNOVon 10-27-2023 CNOV Office Visit (UROSMN ) OVIDIOJESÚS ([id number]) 1935 F Date Time Provider Department 10/27/23 [...] Yes Patient was roomed in: Q9- 06 Jar Filler offered:Patient accepts, visit chaperoned by daughter Patient [...] Instruction Provided To: Patient and family member Instructional Technology Instructor Present: not applicable Discipline: Nursing Learning Topic: SURVIVAL SKILLS: Symptom Management Patient Evaluation: Verbalizes understanding: Yes Supplemental Material Given: Written Material Instructed By Christa Flanagan RN In Department Urology . One suture removed by from left side of back with suture removal kit. Dry bandaid applied to site. Ricco Garland MD 10/27/2023 1:12 PM Signed CYSTOSCOPY PROCEDURE [facility] NOTE Pertinent History and Physical Exam reviewed [...] Operative Finding (more content not included)... Normal [facility] Basic metabolic 2000 panelon 10-21-2023 Anion gap [Moles/Vol] 10 mmol/L Normal 9-18 [facility] Comment on above: Order Comment: Speci men Type: BLOOD SPECIMENOrdering Facility: [facility] Address: [address] [place] [address] Performed By: #### 2 4321-2 ####[facility] LABCLIA [id number] [place] [address] [place] Calcium [Mass/Vol] 8.7 mg/dL Normal 8.5-10.2 [facility] Comment on above: Order Comment: Speci men Type: BLOOD SPECIMENOrdering Facility: [facility] Address: [address] [place] [address] Performed By: #### 2 4321-2 ####[facility] LABCLIA [id number] [place] [address] [place] Chloride [Moles/Vol] 105 mmol/L Normal 97-105 [facility] Comment on above: Order Comment: Speci men Type: BLOOD SPECIMENOrdering Facility: [facility] Address: [address] [place] [address] Performed By: #### 2 4321-2 ####[facility] LABCLIA [id number] [place] [address] [place] CO2 [Moles/Vol] 27 mmol/L Normal 22-30 [facility] Comment on above: Order Comment: Speci men Type: BLOOD SPECIMENOrdering Facility: [facility] Address: [address] [place] [address] Performed By: #### 2 4321-2 ####[facility] LABCLIA [id number] [place] [id number] [place] Creatinine [Mass/Vol] 2.04 mg/dL High 0.58-0.96 [facility] Comment on above: Order Comment: Lalo mclaughlin Type: BLOOD SPECIMENOrdering Facility: [facility] Address: [address] [place] [address] Performed By: #### 2 4321-2 ####[facility] LABIA [id number] [place] [address] [place] Creatinine and Glomerular filtration rate.predicted panel (S/P/Bld) 23 mL/min/1.73m??? Low >=60 [facility] Comment on above: Order Comment: Lalo mclaughlin Type: BLOOD SPECIMENOrdering Facility: [facility] Address: [address] [place] [address] Result Comment: Melissa mated Glomerular Filtration Rate [...] actual GFR. Performed By: #### 2 4321-2 ####[facility] LABIA [id number] [place] [address] [place] Glucose [Mass/Vol] 180 mg/dL High 74-99 [facility] Comment on above: Order Comment: Lalo mclaughlin Type: BLOOD SPECIMENOrdering Facility: [facility] Address: [address] [place] [address] Result Comment: The [place] [employer] (ADA) provides guidance for cutoff [...] Standards of Medical Care in Diabetes 2016, [place] [employer]. Diabetes Care. 2016.39(Suppl 1). Performed By: #### 2 4321-2 ####[facility] LABCLIA [id number] [place] [address] [place] Potassium [Moles/Vol] 3.5 mmol/L Low 3.7-5.1 [facility] Comment on above: Order Comment: Speci men Type: BLOOD SPECIMENOrdering Facility: [facility] Address: [address] [place] [address] Performed By: #### 2 4321-2 ####[facility] LABCLIA [id number] [place] [address] [place] Sodium [Moles/Vol] 142 mmol/L Normal 136-144 [facility] Comment on above: Order Comment: Speci men Type: BLOOD SPECIMENOrdering Facility: [facility] Address: [address] [place] [address] Performed By: #### 2 4321-2 ####[facility] LABCLIA [id number] [place] [address] [place] Urea nitrogen [Mass/Vol] 26 mg/dL High 7-21 [facility] Comment on above: Order Comment: Speci men Type: BLOOD SPECIMENOrdering Facility: [facility] Address: [address] [place] [address] Performed By: #### 2 4321-2 ####[facility] LABCLIA [id number] [place] [address] [place] CBC panel Auto (Bld)on 10-21 Erythrocyte distribution width (RBC) [Ratio] 13.1 % Normal 11.5-15.0 [facility] Comment on above: Order Comment: Speci men Type: BLOOD SPECIMENOrdering Facility: [facility] Address: [address] [place] [address] Performed By: #### 5 8410-2 ####[facility] LABIA [id number] [place] [address] [place] Hematocrit (Bld) [Volume fraction] 35.1 % Low 36.0-46.0 [facility] Comment on above: Order Comment: Speci men Type: BLOOD SPECIMENOrdering Facility: [facility] Address: [address] [place] [address] Performed By: #### 5 8410-2 ####[facility] LABIA [id number] [place] [address] [place] Hemoglobin (Bld) [Mass/Vol] 11.5 g/dL Normal 11.5-15.5 [facility] Comment on above: Order Comment: Speci men Type: BLOOD SPECIMENOrdering Facility: [facility] Address: [address] [place] [address] Performed By: #### 5 8410-2 ####[facility] LABIA [id number] [place] [address] [place] MCH (RBC) [Entitic mass] 31.6 pg Normal 26.0-34.0 [facility] Comment on above: Order Comment: Speci men Type: BLOOD SPECIMENOrdering Facility: [facility] Address: [address] [place] [address] Performed By: #### 5 8410-2 ####[facility] LABIA [id number] [place] [address] [place] MCHC (RBC) [Mass/Vol] 32.8 g/dL Normal 30.5-36.0 [facility] Comment on above: Order Comment: Speci men Type: BLOOD SPECIMENOrdering Facility: [facility] Address: [address] [place] [address] Performed By: #### 5 8410-2 ####[facility] LABCLIA [id number] [place] [address] [place] MCV (RBC) [Entitic vol] 96.4 fL Normal 80.0-100.0 [facility] Comment on above: Order Comment: Speci men Type: BLOOD SPECIMENOrdering Facility: [facility] Address: [address] [place] [address] Performed By: #### 5 8410-2 ####[facility] LABIA [id number] [place] [address] [place] Nucleated RBC (Bld) [#/Vol] 10*3/uL Normal <0.01 [facility] Comment on above: Order Comment: Speci men Type: BLOOD SPECIMENOrdering Facility: [facility] Address: [address] [place] [address] Performed By: #### 5 8410-2 ####[facility] LABIA [id number] [place] [address] [place] Platelet mean volume (Bld) [Entitic vol] 10.7 fL Normal 9.0-12.7 [facility] Comment on above: Order Comment: Speci men Type: BLOOD SPECIMENOrdering Facility: [facility] Address: [address] [place] [address] Performed By: #### 5 8410-2 ####[facility] LABIA [id number] [place] [address] [place] Platelets (Bld) [#/Vol] 158 10*3/uL Normal 150-400 [facility] Comment on above: Order Comment: Speci men Type: BLOOD SPECIMENOrdering Facility: [facility] Address: [address] [place] [address] Performed By: #### 5 8410-2 ####[facility] LABIA [id number] [place] [address] [place] RBC (Bld) [#/Vol] 3.64 10*6/uL Low 3.90-5.20 [facility] Comment on above: Order Comment: Speci men Type: BLOOD SPECIMENOrdering Facility: [facility] Address: [address] [place] [address] Performed By: #### 5 8410-2 ####[facility] LABCLIA [id number] [address] OF [facility] WBC (Bld) [#/Vol] 8.61 10*3/uL Normal 3.70-11.00 [facility] Comment on above: Order Comment: Speci men Type: BLOOD SPECIMENOrdering Facility: [facility] Address: [address] [place] [address] Performed By: #### 5 8410-2 ####[facility] LABCLIA [id number] [address] [facility] THERAPY NTon 10-21-2023 THERAPY NT HNO ID: [id number] Author: MERY KAUR OT/Semaj Service: Occupational Therapy Author Type: Occupational Therapist Type: Therapy (PT/OT/Speech/Resp) Filed: 10/21/2023 10:57 Note Text: Occupational Therapy Evaluation Summary SERVICE DATE: 10/21/2023 SERVICE TIME: 0935 to 1003 ROOM: [address] 6 Clicks Score: 18 DISCHARGE RECOMMENDATIONS Subacute/SNF Recommended Discharge Disposition Comments: Return to [facility] Anticipated Discharge Needs: Physical Assist at Home [...] EOB > chair with min A and PLANT OPERATOR HELPER this date. 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 Baseline Cognition: Oriented to self, Oriented to [...] TREATMENT INTERVENTIONS Evaluation, Self Senior Living Management (07593) Timed Code Treatment (minutes): 13 Skilled Treatment Time (minutes): 28 TRAINING AND EDUCATION PROVIDED Activity Adaptation/Laborer Shaft Sinking y Strategies, Altering Thinking Patterns, Adaptive Equipment/DME, [...] Therapy, Sensory Integration, Sitting Balance to Improve [place]linger with ADLs/Self-Care, Standing Balance to Improve [place] with ADLs/Self-Care, Transfer - Sit to Stand, [...] Type: Stepping Bed To Chair Transfer Equipment: (PLANT OPERATOR HELPER) Toilet/Commode Shower Functional Mobility GOALS Patient will demonstrate understanding (more content not included)... Normal [facility] Basic metabolic 2000 panelon 10-20-2023 Anion gap [Moles/Vol] 14 mmol/L Normal 9-18 [facility] Comment on above: Order Comment: Speci men Type: BLOOD SPECIMENOrdering Facility: [facility] Address: [address] [place] [address] Performed By: #### 2 4321-2 ####[facility] LABCLIA [id number] [place] [address] [place] Calcium [Mass/Vol] 9.2 mg/dL Normal 8.5-10.2 [facility] [place] [facility] Comment on above: Order Comment: Speci men Type: BLOOD SPECIMENOrdering Facility: [facility] Address: [address] [place] [address] Performed By: #### 2 4321-2 ####[facility] LABCLIA [id number] [place] [address] [place] Chloride [Moles/Vol] 103 mmol/L Normal 97-105 [facility] Comment on above: Order Comment: Speci men Type: BLOOD SPECIMENOrdering Facility: [facility] Address: [address] [place] [address] Performed By: #### 2 4321-2 ####[facility] LABCLIA [id number] [place] [address] [place] CO2 [Moles/Vol] 25 mmol/L Normal 22-30 [facility] Comment on above: Order Comment: Speci men Type: BLOOD SPECIMENOrdering Facility: [facility] Address: [address] [place] [address] Performed By: #### 2 4321-2 ####[facility] LABIA [id number] [place] [address] [place] Creatinine [Mass/Vol] 1.90 mg/dL High 0.58-0.96 [facility] Comment on above: Order Comment: Speci men Type: BLOOD SPECIMENOrdering Facility: [facility] Address: [address] [place] [address] Performed By: #### 2 4321-2 ####[facility] LABIA [id number] [address] STATES [facility] Creatinine and Glomerular filtration rate.predicted panel (S/P/Bld) 25 mL/min/1.73m??? Low >=60 [facility] Comment on above: Order Comment: Speci men Type: BLOOD SPECIMENOrdering Facility: [facility] Address: [address] [place] [address] Result Comment: Melissa mated Glomerular Filtration Rate [...] actual GFR. Performed By: #### 2 4321-2 ####[facility] LABIA [id number] [place] [id number] [place] Glucose [Mass/Vol] 92 mg/dL Normal 74-99 [facility] [place] [facility] Comment on above: Order Comment: Speci men Type: BLOOD SPECIMENOrdering Facility: [facility] Address: [address] [place] [address] Result Comment: The [place] [employer] (ADA) provides guidance for cutoff [...] Standards of Medical Care in Diabetes 2016, [place] [employer]. Diabetes Care. 2016.39(Suppl 1). Performed By: #### 2 4321-2 ####[facility] LABCLIA [id number] [place] [address] [place] Potassium [Moles/Vol] Normal [facility] Comment on above: Order Comment: Speci men Type: BLOOD SPECIMENOrdering Facility: [facility] Address: [address] [place] [address] Result Comment: Unab le to assay due to interference from hemolysis. Suggest reorder as clinically indicated. Performed By: #### 2 4321-2 ####[facility] LABCLIA [id number] [place] [address] [place] Sodium [Moles/Vol] 142 mmol/L Normal 136-144 [facility] [place] [facility] Comment on above: Order Comment: Speci men Type: BLOOD SPECIMENOrdering Facility: [facility] Address: [address] [place] [address] Performed By: #### 2 4321-2 ####[facility] LABCLIA [id number] [place] [address] [place] Urea nitrogen [Mass/Vol] 21 mg/dL Normal 7-21 [facility] Comment on above: Order Comment: Speci men Type: BLOOD SPECIMENOrdering Facility: [facility] Address: [address] [place] [address] Performed By: #### 2 4321-2 ####[facility] LABCLIA [id number] [facility] [id number] [facility] CNDSon 10-20-2023 CNDS HNO ID: [id number] Author: RICCO GARLAND MD Service: Urology Author Type: Physician Type: Discharge Summary Filed: 10/24/2023 20:32 Note Text: [place] [address] or (259) SY-CARE C O N F I D E N T I A L I N F O R M A T I O N STANDARD [facility] DOCUMENT DISCHARGE SUMMARY Patient Name: Jesús Nolan [...] UP TO 2cm (Left) on 10/18. 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 Please contact your data administrator to configure this SmartLink. was transferred [...] These medications were sent to e- [id number] [place] [address] - [address] [facility] [facility] - [phone] [place] [address] [facility] [address] amoxicillin 250 mg capsule tamsulosin 0.4 mg You can get these medications from any pharmacy You don't need a prescription for these medications acetaminophen 500 mg tablet Future Appointments: No future appointments. Electronically SIGNED by Licensed Independent Practitioner: MD Ricco Wilcox MD, FACS Director, Surgical Stone Disease, [facility] online marketing coordinator, [facility] Pager [phone] 10/20/2023 Note: Due to patient confusion/combativenes s, we may need to hold discharge and revise this summary. Ricco Garland MD, FACS Director, Surgical Stone Disease, [facility] online marketing coordinator, [facility] Pager [phone] 10/20/2023 Normal [facility] CONSULTon 10-20-2023 CONSULT HNO ID: [id number] Author: FANTA MEDELLIN MD Service: Psychiatry Author Type: Physician Type: Consults Filed: 10/21/2023 18:06 Note Text: PSYCHIATRY CONSULT SERVICE MEDICAL STUDENT INITIAL CONSULT NOTE DAY TIME COVERAGE: Between 8AM to 5PM, page [phone] NIGHT AND WEEKEND COVERAGE: After hours (5PM to 8AM) and weekends, page [phone] SERVICE DATE: October 20, 2023 SERVICE TIME: [...] medically managed RECOMMENDATIONS: -Delirium protocol - 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 - Please AVOID opioids, benzodiazepines, or anticholinergic medications. - Psych to follow up while inpatient Jose KUMAR [phone] ____ This note was generated by a [...] is a 88 year old female from [place], [place]. History of Present Illness: She is [...] daughter and son in law in the [facility] [place]. She was well-groomed and dressed in [...] SYMPTOMS: Depressio (more content not included)... Normal [facility] NURSING PROGon 10-20-2023 NURSING PROG HNO ID: [id number] Author: MIRIAN WALSH, RN Service: Nursing Author [...] the left thigh. Mirian WHITESIDEN RN Normal [facility] THERAPY NTon 10-20-2023 THERAPY NT HNO ID: [id number] Author: [place] GATICA, PT Service: Physical Therapy Author Type: Physical Therapist Type: Therapy (PT/OT/Speech/Resp) Filed: 10/20/2023 12:00 Note Text: PHYSICAL THERAPY MISSED VISIT SERVICE DATE: 10/20/2023 SERVICE TIME: 0943 ROOM: [place] [address] Patient not seen due to: Spoke with CM who stated the patient is being discharged. SIGNATURE: Oh Gatica, PT PATIENT NAME: Jesús Nolan DATE: October 20, 2023 TIME: 11:59 AM Normal [facility] THERAPY NT HNO ID: [id number] Author: MERY KAUR, OT/L Service: Occupational Therapy Author Type: Occupational Therapist Type: Therapy (PT/OT/Speech/Resp) Filed: 10/20/2023 09:49 Note Text: OCCUPATIONAL THERAPY MISSED VISIT SERVICE DATE: 10/20/2023 SERVICE TIME: 0815 ROOM: [place] [address] Patient not seen due to Clinical Appropriateness. OT attempted eval this AM- pt combative, aggressive, and verbally abusive towards therapist. Pt now with active discharge order for this AM. OT will reattempt if necessary. SIGNATURE: Mery Kaur, OT/L PATIENT NAME: Jesús Nolan DATE: October 20, 2023 TIME: 9:47 AM Normal [facility] Basic metabolic 2000 panelon 10-19-2023 Anion gap [Moles/Vol] 11 mmol/L Normal 9-18 [facility] Comment on above: Order Comment: Speci men Type: BLOOD SPECIMENOrdering Facility: [facility] Address: [address] [place] [address] Performed By: #### 2 4321-2 ####[facility] LABCLIA [id number] [place] [address] [place] Calcium [Mass/Vol] 8.6 mg/dL Normal 8.5-10.2 [facility] Comment on above: Order Comment: Speci men Type: BLOOD SPECIMENOrdering Facility: [facility] Address: [address] [place] [address] Performed By: #### 2 4321-2 ####[facility] LABCLIA [id number] [place] [address] [place] Chloride [Moles/Vol] 105 mmol/L Normal 97-105 [facility] Comment on above: Order Comment: Speci men Type: BLOOD SPECIMENOrdering Facility: [facility] Address: [address] [place] [address] Performed By: #### 2 4321-2 ####[facility] LABCLIA [id number] [place] [address] [place] CO2 [Moles/Vol] 26 mmol/L Normal 22-30 [facility] Comment on above: Order Comment: Speci men Type: BLOOD SPECIMENOrdering Facility: [facility] Address: [address] [place] [address] Performed By: #### 2 4321-2 ####[facility] LABIA [id number] [place] [address] [place] Creatinine [Mass/Vol] 2.02 mg/dL High 0.58-0.96 [facility] Comment on above: Order Comment: Speci men Type: BLOOD SPECIMENOrdering Facility: [facility] Address: [address] [place] [address] Performed By: #### 2 4321-2 ####[facility] LABCLIA [id number] [place] [address] [place] Creatinine and Glomerular filtration rate.predicted panel (S/P/Bld) 24 mL/min/1.73m??? Low >=60 [facility] Comment on above: Order Comment: Speci men Type: BLOOD SPECIMENOrdering Facility: [facility] Address: [address] [place] [address] Result Comment: Melissa mated Glomerular Filtration Rate [...] actual GFR. Performed By: #### 2 4321-2 ####[facility] LABCLIA [id number] [place] [address] [place] Glucose [Mass/Vol] 131 mg/dL High 74-99 [facility] [place] [facility] Comment on above: Order Comment: Speci men Type: BLOOD SPECIMENOrdering Facility: [facility] Address: [address] [place] [address] Result Comment: The [place] [employer] (ADA) provides guidance for cutoff [...] Standards of Medical Care in Diabetes 2016, [place] [employer]. Diabetes Care. 2016.39(Suppl 1). Performed By: #### 2 4321-2 ####[facility] LABCLIA [id number] [place] [id number] [place] Potassium [Moles/Vol] 3.9 mmol/L Normal 3.7-5.1 [facility] Comment on above: Order Comment: Speci men Type: BLOOD SPECIMENOrdering Facility: [facility] Address: [address] [place] [address] Performed By: #### 2 4321-2 ####[facility] LABCLIA [id number] [address] [address] [place] Sodium [Moles/Vol] 142 mmol/L Normal 136-144 [facility] Comment on above: Order Comment: Speci men Type: BLOOD SPECIMENOrdering Facility: [facility] Address: [address] [place] [address] Performed By: #### 2 4321-2 ####[facility] LABCLIA [id number] [place] [address] [place] Urea nitrogen [Mass/Vol] 25 mg/dL High 7-21 [facility] Comment on above: Order Comment: Speci men Type: BLOOD SPECIMENOrdering Facility: [facility] Address: [address] [place] [address] Performed By: #### 2 4321-2 ####[facility] LABCLIA [id number] [place] [address] [place] CBC W Auto Differential pane l (Bld)on 10-19-2023 Basophils (Bld) [#/Vol] 10*3/uL Normal <0.11 [facility] Comment on above: Order Comment: Speci men Type: BLOOD SPECIMENOrdering Facility: [facility] Address: [address] [place] [address] Performed By: #### 5 7021-8 ####[facility] LABCLIA [id number] [place] [address] [place] Basophils/100 WBC (Bld) 0.2 % Normal [facility] Comment on above: Order Comment: Speci men Type: BLOOD SPECIMENOrdering Facility: [facility] Address: [address] [place] [address] Performed By: #### 5 7021-8 ####[facility] LABCLIA [id number] [place] [address] [place] Differential cell count method Nom (Bld) Auto Normal [facility] Comment on above: Order Comment: Speci men Type: BLOOD SPECIMENOrdering Facility: [facility] Address: [address] [place] [address] Performed By: #### 5 7021-8 ####[facility] LABCLIA [id number] [place] [address] [place] Eosinophils (Bld) [#/Vol] 0.03 10*3/uL Normal <0.46 [facility] Comment on above: Order Comment: Speci men Type: BLOOD SPECIMENOrdering Facility: [facility] Address: [address] [place] [address] Performed By: #### 5 7021-8 ####[facility] LABCLIA [id number] [place] [address] [place] Eosinophils/100 WBC (Bld) 0.2 % Normal [facility] Comment on above: Order Comment: Speci men Type: BLOOD SPECIMENOrdering Facility: [facility] Address: [address] [place] [address] Performed By: #### 5 7021-8 ####[facility] LABCLIA [id number] [place] [address] [place] Erythrocyte distribution width (RBC) [Ratio] 13.3 % Normal 11.5-15.0 [facility] Comment on above: Order Comment: Speci men Type: BLOOD SPECIMENOrdering Facility: [facility] Address: [address] [place] [address] Performed By: #### 5 7021-8 ####[facility] LABCLIA [id number] [place] [address] [place] Hematocrit (Bld) [Volume fraction] 36.8 % Normal 36.0-46.0 [facility] Comment on above: Order Comment: Speci men Type: BLOOD SPECIMENOrdering Facility: [facility] Address: [address] [place] [address] Performed By: #### 5 7021-8 ####[facility] LABCLIA [id number] [place] [address] [place] Hemoglobin (Bld) [Mass/Vol] 11.8 g/dL Normal 11.5-15.5 [facility] Comment on above: Order Comment: Speci men Type: BLOOD SPECIMENOrdering Facility: [facility] Address: [address] [place] [address] Performed By: #### 5 7021-8 ####[facility] LABCLIA [id number] [place] [address] [place] Immature granulocytes (Bld) [#/Vol] 0.05 10*3/uL Normal <0.10 [facility] Comment on above: Order Comment: Speci men Type: BLOOD SPECIMENOrdering Facility: [facility] Address: [address] [place] [address] Performed By: #### 5 7021-8 ####[facility] LABCLIA [id number] [place] [address] [place] Immature granulocytes/100 WBC (Bld) 0.4 % Normal [facility] Comment on above: Order Comment: Speci men Type: BLOOD SPECIMENOrdering Facility: [facility] Address: [address] [place] [address] Performed By: #### 5 7021-8 ####[facility] LABCLIA [id number] [place] [address] [place] Lymphocytes (Bld) [#/Vol] 1.26 10*3/uL Normal 1.00-4.00 [facility] Comment on above: Order Comment: Speci men Type: BLOOD SPECIMENOrdering Facility: [facility] Address: [address] [place] [address] Performed By: #### 5 7021-8 ####[facility] LABCLIA [id number] [place] [address] [place] Lymphocytes/100 WBC (Bld) 10.1 % Normal [facility] Comment on above: Order Comment: Speci men Type: BLOOD SPECIMENOrdering Facility: [facility] Address: [address] [place] [address] Performed By: #### 5 7021-8 ####[facility] LABCLIA [id number] [place] [address] [place] MCH (RBC) [Entitic mass] 32.6 pg Normal 26.0-34.0 [facility] Comment on above: Order Comment: Speci men Type: BLOOD SPECIMENOrdering Facility: [facility] Address: [address] [place] [address] Performed By: #### 5 7021-8 ####[facility] LABIA [id number] [place] [address] [place] MCHC (RBC) [Mass/Vol] 32.1 g/dL Normal 30.5-36.0 [facility] Comment on above: Order Comment: Speci men Type: BLOOD SPECIMENOrdering Facility: [facility] Address: [address] [place] [address] Performed By: #### 5 7021-8 ####[facility] LABIA [id number] [place] [address] [place] MCV (RBC) [Entitic vol] 101.7 fL High 80.0-100.0 [facility] Comment on above: Order Comment: Speci men Type: BLOOD SPECIMENOrdering Facility: [facility] Address: [address] [place] [address] Performed By: #### 5 7021-8 ####[facility] LABIA [id number] [place] [address] [place] Monocytes (Bld) [#/Vol] 1.09 10*3/uL High <0.87 [facility] Comment on above: Order Comment: Speci men Type: BLOOD SPECIMENOrdering Facility: [facility] Address: [address] [place] [address] Performed By: #### 5 7021-8 ####[facility] LABCLIA [id number] [place] [address] [place] Monocytes/100 WBC (Bld) 8.7 % Normal [facility] Comment on above: Order Comment: Speci men Type: BLOOD SPECIMENOrdering Facility: [facility] Address: [address] [place] [address] Performed By: #### 5 7021-8 ####[facility] LABCLIA [id number] [place] [address] [place] Neutrophils (Bld) [#/Vol] 10.04 10*3/uL High 1.45-7.50 [facility] Comment on above: Order Comment: Speci men Type: BLOOD SPECIMENOrdering Facility: [facility] Address: [address] [place] [address] Performed By: #### 5 7021-8 ####[facility] LABCLIA [id number] [place] [address] [place] Neutrophils/100 WBC (Bld) 80.4 % Normal [facility] Comment on above: Order Comment: Speci men Type: BLOOD SPECIMENOrdering Facility: [facility] Address: [address] [place] [address] Performed By: #### 5 7021-8 ####[facility] LABCLIA [id number] [place] [address] [place] Nucleated RBC (Bld) [#/Vol] 10*3/uL Normal <0.01 [facility] Comment on above: Order Comment: Speci men Type: BLOOD SPECIMENOrdering Facility: [facility] Address: [address] [place] [address] Performed By: #### 5 7021-8 ####[facility] LABCLIA [id number] [place] [address] [place] Nucleated RBC/100 WBC (Bld) [Ratio] 0.0 /100 WBC Normal [facility] Comment on above: Order Comment: Speci men Type: BLOOD SPECIMENOrdering Facility: [facility] Address: [address] [place] [address] Performed By: #### 5 7021-8 ####[facility] LABIA [id number] [place] [address] [place] Platelet mean volume (Bld) [Entitic vol] 10.6 fL Normal 9.0-12.7 [facility] Comment on above: Order Comment: Speci men Type: BLOOD SPECIMENOrdering Facility: [facility] Address: [address] [place] [address] Performed By: #### 5 7021-8 ####[facility] LABIA [id number] [place] [address] [place] Platelets (Bld) [#/Vol] 168 10*3/uL Normal 150-400 [facility] Comment on above: Order Comment: Speci men Type: BLOOD SPECIMENOrdering Facility: [facility] Address: [address] [place] [address] Performed By: #### 5 7021-8 ####[facility] LABIA [id number] [place] [address] [place] RBC (Bld) [#/Vol] 3.62 10*6/uL Low 3.90-5.20 [facility] Comment on above: Order Comment: Speci men Type: BLOOD SPECIMENOrdering Facility: [facility] Address: [address] [place] [address] Performed By: #### 5 7021-8 ####[facility] LABIA [id number] [place] [address] [place] WBC (Bld) [#/Vol] 12.49 10*3/uL High 3.70-11.00 [facility] Comment on above: Order Comment: Speci men Type: BLOOD SPECIMENOrdering Facility: [facility] Address: [address] [place] [address] Performed By: #### 5 7021-8 ####[facility] LABIA [id number] [place] [address] [place] ANES POSTPROC EVALon 01-22-2 024 ANES POSTPROC EVAL HNO ID: [id number] Author: ESVIN ALLEN MD Service: ? Author Type: Anesthesiologist Type: Anesthesia Postprocedure Evaluation Filed: 10/18/2023 12:06 Note Text: POST ANESTHESIA EVALUATION NOTE : 1935 Procedure Summary Date: 10/18/23 Room / Location: [address] Anesthesia Start: 732 Anesthesia Stop: 1057 [...] October 18, 2023 TIME: 12:06 PM CSN: [id number] Normal [facility] ANES PRE-OPon 10-18-2023 ANES PRE-OP HNO ID: [id number] Author: ESVIN ALLEN MD Service: ? Author Type: Anesthesiologist Type: Anesthesia Preprocedure Evaluation Filed: 10/18/2023 07:50 Note Text: ANESTHESIOLOGY DAY OF SURGERY NOTE : 1935 Procedure Information Anesthesia Start Date/Time: 10/18/2333 Procedure: PERC NEPHROLITHOTOMY LITHOTRIPSY,STONE EXTRACTION,ANTEGRADE URETEROSCOPY,STENT PLACEMENT WHEN PERFORMED INCD IMAGING UP TO 2cm (Left: Kidney) Location: [facility]IN [facility] Surgeons: Ricco Garland MD [...] October 18, 2023 TIME: 7:49 AM CSN: [id number] Normal [facility] Bacteria Ur Culton Bacteria identified Cx Nom (U) CULTURE, URINE: No growth (<1,000 CFU/ml) Normal [facility] Comment on above: Performed By: #### 6 30-4 ####[facility] LABCLIA [id number] [place] [address] [place] Basic metabolic 2000 panelon 10-18-2023 Anion gap [Moles/Vol] 14 mmol/L Normal 9-18 [facility] Comment on above: Order Comment: Speci men Type: BLOOD SPECIMENOrdering Facility: [facility] Address: [address] [place] [address] Performed By: #### 2 4321-2 ####[facility] LABCLIA [id number] [place] [address] [place] Calcium [Mass/Vol] 8.0 mg/dL Low 8.5-10.2 [facility] Comment on above: Order Comment: Speci men Type: BLOOD SPECIMENOrdering Facility: [facility] Address: [address] [place] [address] Performed By: #### 2 4321-2 ####[facility] LABCLIA [id number] [place] [address] [place] Chloride [Moles/Vol] 106 mmol/L High 97-105 [facility] Comment on above: Order Comment: Speci men Type: BLOOD SPECIMENOrdering Facility: [facility] Address: [address] [place] [address] Performed By: #### 2 4321-2 ####[facility] LABCLIA [id number] [place] [address] [place] CO2 [Moles/Vol] 24 mmol/L Normal 22-30 [facility] Comment on above: Order Comment: Speci men Type: BLOOD SPECIMENOrdering Facility: [facility] Address: [address] [place] [address] Performed By: #### 2 4321-2 ####[facility] LABCLIA [id number] [place] [address] [place] Creatinine [Mass/Vol] 1.91 mg/dL High 0.58-0.96 [facility] Comment on above: Order Comment: Speci men Type: BLOOD SPECIMENOrdering Facility: [facility] Address: [address] [place] [address] Performed By: #### 2 4321-2 ####[facility] LABCLIA [id number] [place] [address] [place] Creatinine and Glomerular filtration rate.predicted panel (S/P/Bld) 25 mL/min/1.73m??? Low >=60 [facility] Comment on above: Order Comment: Speci men Type: BLOOD SPECIMENOrdering Facility: [facility] Address: [address] [place] [address] Result Comment: Melissa mated Glomerular Filtration Rate [...] actual GFR. Performed By: #### 2 4321-2 ####[facility] LABCLIA [id number] [place] [address] [place] Glucose [Mass/Vol] 197 mg/dL High 74-99 [facility] Comment on above: Order Comment: Speci men Type: BLOOD SPECIMENOrdering Facility: [facility] Address: [address] [place] [address] Result Comment: The [place] [employer] (ADA) provides guidance for cutoff [...] Standards of Medical Care in Diabetes 2016, [place] [employer]. Diabetes Care. 2016.39(Suppl 1). Performed By: #### 2 4321-2 ####[facility] LABIA [id number] [place] [address] [place] Potassium [Moles/Vol] 4.0 mmol/L Normal 3.7-5.1 [facility] Comment on above: Order Comment: Speci men Type: BLOOD SPECIMENOrdering Facility: [facility] Address: [address] [place] [address] Performed By: #### 2 4321-2 ####[facility] LABIA [id number] [place] [address] [place] Sodium [Moles/Vol] 144 mmol/L Normal 136-144 [facility] Comment on above: Order Comment: Speci men Type: BLOOD SPECIMENOrdering Facility: [facility] Address: [address] [place] [address] Performed By: #### 2 4321-2 ####[facility] LABIA [id number] [place] [id number] [place] Urea nitrogen [Mass/Vol] 25 mg/dL High 7-21 [facility] Comment on above: Order Comment: Speci men Type: BLOOD SPECIMENOrdering Facility: [facility] Address: [address] [place] [address] Performed By: #### 2 4321-2 ####[facility] LABIA [id number] [place] [address] [place] CALCULI ANALYSISon 4 Calculus analysis [Interp] Normal [facility] Comment on above: Order Comment: Speci men Type: CALCULUS SPECIMENOrdering Facility: [facility] Address: [address] [place] [address] Result Comment: This test was developed and its performance characteristics determined by [facility] Pathology and Laboratory Medicine [place] ([facility]). It has not been cleared or approved by the FDA. -[facility] is regulated under CLIA as qualified to perform high-complexity testing. This test is used for clinical purposes. It should not be regarded as investigational or for research. Performed By: #### C SA ####[facility] LABIA [id number] [place] [address] [place] CALCULUS COLOR MEDINA Normal [facility] Comment on above: Order Comment: Speci men Type: CALCULUS SPECIMENOrdering Facility: [facility] Address: [address] [place] [address] Performed By: #### C SA ####[facility] LABIA [id number] [place] [address] [place] CALCULUS COMPOSITION 1 60% Calcium Phosphate Normal [facility] Comment on above: Order Comment: Speci men Type: CALCULUS SPECIMENOrdering Facility: [facility] Address: [address] [place] [address] Performed By: #### C SA ####[facility] LABIA [id number] [address] [place] CALCULUS COMPOSITION 2 40% Magnesium Amm onium Phosphate Normal [facility] Comment on above: Order Comment: Speci men Type: CALCULUS SPECIMENOrdering Facility: [facility] Address: [address] [place] [address] Performed By: #### C SA ####[facility] LABCLIA [id number] [address] [place] CALCULUS SIZE AND WT Multiple pieces. 12.1620 GRAMS Normal [facility] Comment on above: Order Comment: Speci men Type: CALCULUS SPECIMENOrdering Facility: [facility] Address: [address] [place] [address] Performed By: #### C SA ####[facility] LABIA [id number] [address] [place] CALCULUS TYPE CALCULI/CALCULUS Normal [facility] Comment on above: Order Comment: Speci men Type: CALCULUS SPECIMENOrdering Facility: [facility] Address: [address] [place] [address] Performed By: #### C SA ####[facility] LABIA [id number] [place] [address] [place] CBC panel Auto (Bld)on 10-18 Erythrocyte distribution width (RBC) [Ratio] 13.2 % Normal 11.5-15.0 [facility] Comment on above: Order Comment: Speci men Type: BLOOD SPECIMENOrdering Facility: [facility] Address: [address] [place] [address] Performed By: #### 5 8410-2 ####[facility] LABIA [id number] [place] [address] [place] Hematocrit (Bld) [Volume fraction] 37.0 % Normal 36.0-46.0 [facility] Comment on above: Order Comment: Speci men Type: BLOOD SPECIMENOrdering Facility: [facility] Address: [address] [place] [address] Performed By: #### 5 8410-2 ####[facility] LABCLIA [id number] [place] [address] [place] Hemoglobin (Bld) [Mass/Vol] 11.8 g/dL Normal 11.5-15.5 [facility] Comment on above: Order Comment: Speci men Type: BLOOD SPECIMENOrdering Facility: [facility] Address: [address] [place] [address] Performed By: #### 5 8410-2 ####[facility] LABCLIA [id number] [place] [address] [place] MCH (RBC) [Entitic mass] 31.7 pg Normal 26.0-34.0 [facility] Comment on above: Order Comment: Speci men Type: BLOOD SPECIMENOrdering Facility: [facility] Address: [address] [place] [address] Performed By: #### 5 8410-2 ####[facility] LABIA [id number] [place] [address] [place] MCHC (RBC) [Mass/Vol] 31.9 g/dL Normal 30.5-36.0 [facility] Comment on above: Order Comment: Speci men Type: BLOOD SPECIMENOrdering Facility: [facility] Address: [address] [place] [address] Performed By: #### 5 8410-2 ####[facility] LABIA [id number] [place] [address] [place] MCV (RBC) [Entitic vol] 99.5 fL Normal 80.0-100.0 [facility] Comment on above: Order Comment: Speci men Type: BLOOD SPECIMENOrdering Facility: [facility] Address: [address] [place] [address] Performed By: #### 5 8410-2 ####[facility] LABIA [id number] [place] [address] [place] Nucleated RBC (Bld) [#/Vol] 10*3/uL Normal <0.01 [facility] Comment on above: Order Comment: Speci men Type: BLOOD SPECIMENOrdering Facility: [facility] Address: [address] [place] [address] Performed By: #### 5 8410-2 ####[facility] LABCLIA [id number] [place] [address] [place] Platelet mean volume (Bld) [Entitic vol] 10.4 fL Normal 9.0-12.7 [facility] Comment on above: Order Comment: Speci men Type: BLOOD SPECIMENOrdering Facility: [facility] Address: [address] [place] [address] Performed By: #### 5 8410-2 ####[facility] LABCLIA [id number] [place] [address] [place] Platelets (Bld) [#/Vol] 165 10*3/uL Normal 150-400 [facility] Comment on above: Order Comment: Speci men Type: BLOOD SPECIMENOrdering Facility: [facility] Address: [address] [place] [address] Performed By: #### 5 8410-2 ####[facility] LABCLIA [id number] [place] [address] [place] RBC (Bld) [#/Vol] 3.72 10*6/uL Low 3.90-5.20 [facility] Comment on above: Order Comment: Speci men Type: BLOOD SPECIMENOrdering Facility: [facility] Address: [address] [place] [address] Performed By: #### 5 8410-2 ####[facility] LABCLIA [id number] [place] [address] [place] WBC (Bld) [#/Vol] 18.32 10*3/uL High 3.70-11.00 [facility] Comment on above: Order Comment: Speci men Type: BLOOD SPECIMENOrdering Facility: [facility] Address: [address] [place] [address] Performed By: #### 5 8410-2 ####[facility] LABCLIA [id number] [id number] [id number] [place] OPERATIVE NOon 10-18-2023 OPERATIVE NO HNO ID: [id number] Author: RICCO GARLAND MD Service: Urology Author Type: Physician Type: Operative Report Filed: 10/18/2023 11:07 Note Text: OPERATIVE/PROCEDURE REPORT LOG ID: [id number] Surgery/Procedure Date: 10/18/2023 Incision/Procedure Start Time: 8:31 AM Incision Close/Procedure End Time: 10:20 AM Surgeon(s)/Procedurali st(s) and Volunteer Specialist(s): Surgeon(s) and Role: * Ricco Garland MD [...] < 1 hr Anesthesia: General Findings: Stone Mcgrath: 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 Normal [facility] XR CHEST 1V FRONTAL PORTon [...] normal limits. IMPRESSION: No acute cardiopulmonary process. 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: PSCB Transcribe Date/Time: Oct 18 2023 11:35A Dictated by : CHARLIE JOHNSON MD This examination was interpreted and the report reviewed and electronically signed by: CHARLIE JOHNSON MD on Oct 18 2023 11:35AM EST [id number] Normal [facility] Bacteria Ur Culton Bacteria identified Cx Nom (U) CULTURE, URINE: No growth (<1,000 CFU/ml) Normal [facility] Comment on above: Performed By: #### 6 30-4 ####[facility] LABCLIA [id number] [place] [address] [place] Basic metabolic 2000 panelon 10-17-2023 Anion gap [Moles/Vol] 17 mmol/L Normal 9-18 [facility] Comment on above: Order Comment: Speci men Type: BLOOD SPECIMENOrdering Facility: [facility] Address: [address] [place] [address] Performed By: #### 2 4321-2 ####[facility] LABCLIA [id number] [place] [address] [place] Calcium [Mass/Vol] 9.7 mg/dL Normal 8.5-10.2 [facility] Comment on above: Order Comment: Speci men Type: BLOOD SPECIMENOrdering Facility: [facility] Address: [address] [place] [address] Performed By: #### 2 4321-2 ####[facility] LABCLIA [id number] [place] [address] [place] Chloride [Moles/Vol] 103 mmol/L Normal 97-105 [facility] Comment on above: Order Comment: Speci men Type: BLOOD SPECIMENOrdering Facility: [facility] Address: [address] [place] [address] Performed By: #### 2 4321-2 ####[facility] LABCLIA [id number] [place] [address] [place] CO2 [Moles/Vol] 23 mmol/L Normal 22-30 [facility] Comment on above: Order Comment: Speci men Type: BLOOD SPECIMENOrdering Facility: [facility] Address: [address] [place] [address] Performed By: #### 2 4321-2 ####[facility] LABCLIA [id number] [place] [address] [place] Creatinine [Mass/Vol] 2.11 mg/dL High 0.58-0.96 [facility] Comment on above: Order Comment: Speci men Type: BLOOD SPECIMENOrdering Facility: [facility] Address: [address] [place] [address] Performed By: #### 2 4321-2 ####[facility] LABCLIA [id number] [place] [address] [place] Creatinine and Glomerular filtration rate.predicted panel (S/P/Bld) 22 mL/min/1.73m??? Low >=60 [facility] Comment on above: Order Comment: Specronni mclaughlin Type: BLOOD SPECIMENOrdering Facility: [facility] Address: [address] [place] [address] Result Comment: Melissa mated Glomerular Filtration Rate [...] actual GFR. Performed By: #### 2 4321-2 ####[facility] LABIA [id number] [place] [address] [place] Glucose [Mass/Vol] 129 mg/dL High 74-99 [facility] Comment on above: Order Comment: Lalo mclaughlin Type: BLOOD SPECIMENOrdering Facility: [facility] Address: [address] [place] [address] Result Comment: The [place] [employer] (ADA) provides guidance for cutoff [...] Standards of Medical Care in Diabetes 2016, [place] [employer]. Diabetes Care. 2016.39(Suppl 1). Performed By: #### 2 4321-2 ####[facility] LABCLIA [id number] [place] [address] [place] Potassium [Moles/Vol] 4.3 mmol/L Normal 3.7-5.1 [facility] Comment on above: Order Comment: Speci men Type: BLOOD SPECIMENOrdering Facility: [facility] Address: [address] [place] [address] Performed By: #### 2 4321-2 ####[facility] LABCLIA [id number] [place] [address] [place] Sodium [Moles/Vol] 143 mmol/L Normal 136-144 [facility] Comment on above: Order Comment: Speci men Type: BLOOD SPECIMENOrdering Facility: [facility] Address: [address] [place] [address] Performed By: #### 2 4321-2 ####[facility] LABCLIA [id number] [place] [address] [place] Urea nitrogen [Mass/Vol] 30 mg/dL High 04-16 [facility] Comment on above: Order Comment: Speci men Type: BLOOD SPECIMENOrdering Facility: [facility] Address: [address] [place] [address] Performed By: #### 2 4321-2 ####[facility] LABCLIA [id number] [place] [address] [place] CBC W Auto Differential pane l (Bld)on 10-17-2023 Basophils (Bld) [#/Vol] 10*3/uL Normal <0.11 [facility] Comment on above: Order Comment: Speci men Type: BLOOD SPECIMENOrdering Facility: [facility] Address: [address] [place] [address] Performed By: #### 5 7021-8 ####[facility] LABCLIA [id number] [place] [address] [place] Basophils/100 WBC (Bld) 0.1 % Normal [facility] Comment on above: Order Comment: Speci men Type: BLOOD SPECIMENOrdering Facility: [facility] Address: [address] [place] [address] Performed By: #### 5 7021-8 ####[facility] LABCLIA [id number] [place] [address] [place] Differential cell count method Nom (Bld) Auto Normal [facility] Comment on above: Order Comment: Speci men Type: BLOOD SPECIMENOrdering Facility: [facility] Address: [address] [place] [address] Performed By: #### 5 7021-8 ####[facility] LABCLIA [id number] [place] [address] [place] Eosinophils (Bld) [#/Vol] 0.07 10*3/uL Normal <0.46 [facility] Comment on above: Order Comment: Speci men Type: BLOOD SPECIMENOrdering Facility: [facility] Address: [address] [place] [address] Performed By: #### 5 7021-8 ####[facility] LABCLIA [id number] [place] [address] [place] Eosinophils/100 WBC (Bld) 1.0 % Normal [facility] Comment on above: Order Comment: Speci men Type: BLOOD SPECIMENOrdering Facility: [facility] Address: [address] [place] [address] Performed By: #### 5 7021-8 ####[facility] LABCLIA [id number] [place] [address] [place] Erythrocyte distribution width (RBC) [Ratio] 13.2 % Normal 11.5-15.0 [facility] Comment on above: Order Comment: Speci men Type: BLOOD SPECIMENOrdering Facility: [facility] Address: [address] [place] [address] Performed By: #### 5 7021-8 ####[facility] LABCLIA [id number] [place] [address] [place] Hematocrit (Bld) [Volume fraction] 40.4 % Normal 36.0-46.0 [facility] Comment on above: Order Comment: Speci men Type: BLOOD SPECIMENOrdering Facility: [facility] Address: [address] [place] [address] Performed By: #### 5 7021-8 ####[facility] LABCLIA [id number] [place] [address] [place] Hemoglobin (Bld) [Mass/Vol] 13.1 g/dL Normal 11.5-15.5 [facility] Comment on above: Order Comment: Speci men Type: BLOOD SPECIMENOrdering Facility: [facility] Address: [address] [place] [address] Performed By: #### 5 7021-8 ####[facility] LABCLIA [id number] [place] [address] [place] Immature granulocytes (Bld) [#/Vol] 10*3/uL Normal <0.10 [facility] Comment on above: Order Comment: Speci men Type: BLOOD SPECIMENOrdering Facility: [facility] Address: [address] [place] [address] Performed By: #### 5 7021-8 ####[facility] LABCLIA [id number] [place] [address] [place] Immature granulocytes/100 WBC (Bld) 0.3 % Normal [facility] Comment on above: Order Comment: Speci men Type: BLOOD SPECIMENOrdering Facility: [facility] Address: [address] [place] [address] Performed By: #### 5 7021-8 ####[facility] LABCLIA [id number] [place] [address] [place] Lymphocytes (Bld) [#/Vol] 2.21 10*3/uL Normal 1.00-4.00 [facility] Comment on above: Order Comment: Speci men Type: BLOOD SPECIMENOrdering Facility: [facility] Address: [address] [place] [address] Performed By: #### 5 7021-8 ####[facility] LABIA [id number] [place] [address] [place] Lymphocytes/100 WBC (Bld) 30.8 % Normal [facility] Comment on above: Order Comment: Speci men Type: BLOOD SPECIMENOrdering Facility: [facility] Address: [address] [place] [address] Performed By: #### 5 7021-8 ####[facility] [id number] [place] [address] [place] MCH (RBC) [Entitic mass] 31.9 pg Normal 26.0-34.0 [facility] Comment on above: Order Comment: Speci men Type: BLOOD SPECIMENOrdering Facility: [facility] Address: [address] [place] [address] Performed By: #### 5 7021-8 ####[facility] [id number] [place] [address] [place] MCHC (RBC) [Mass/Vol] 32.4 g/dL Normal 30.5-36.0 [facility] Comment on above: Order Comment: Speci men Type: BLOOD SPECIMENOrdering Facility: [facility] Address: [address] [place] [address] Performed By: #### 5 7021-8 ####[facility] LABIA [id number] [place] [address] [place] MCV (RBC) [Entitic vol] 98.3 fL Normal 80.0-100.0 [facility] Comment on above: Order Comment: Speci men Type: BLOOD SPECIMENOrdering Facility: [facility] Address: [address] [place] [address] Performed By: #### 5 7021-8 ####[facility] LABIA [id number] [place] [id number] [place] Monocytes (Bld) [#/Vol] 0.68 10*3/uL Normal <0.87 [facility] Comment on above: Order Comment: Speci men Type: BLOOD SPECIMENOrdering Facility: [facility] Address: [address] [place] [address] Performed By: #### 5 7021-8 ####[facility] LABCLIA [id number] [place] [address] [place] Monocytes/100 WBC (Bld) 9.5 % Normal [facility] Comment on above: Order Comment: Speci men Type: BLOOD SPECIMENOrdering Facility: [facility] Address: [address] [place] [address] Performed By: #### 5 7021-8 ####[facility] LABCLIA [id number] [place] [address] [place] Neutrophils (Bld) [#/Vol] 4.19 10*3/uL Normal 1.45-7.50 [facility] Comment on above: Order Comment: Speci men Type: BLOOD SPECIMENOrdering Facility: [facility] Address: [address] [place] [address] Performed By: #### 5 7021-8 ####[facility] LABCLIA [id number] [place] [address] [place] Neutrophils/100 WBC (Bld) 58.3 % Normal [facility] Comment on above: Order Comment: Speci men Type: BLOOD SPECIMENOrdering Facility: [facility] Address: [address] [place] [address] Performed By: #### 5 7021-8 ####[facility] LABCLIA [id number] [place] [address] [place] Nucleated RBC (Bld) [#/Vol] 10*3/uL Normal <0.01 [facility] Comment on above: Order Comment: Speci men Type: BLOOD SPECIMENOrdering Facility: [facility] Address: [address] [place] [address] Performed By: #### 5 7021-8 ####[facility] LABIA [id number] [place] [address] [place] Nucleated RBC/100 WBC (Bld) [Ratio] 0.0 /100 WBC Normal [facility] Comment on above: Order Comment: Speci men Type: BLOOD SPECIMENOrdering Facility: [facility] Address: [address] [place] [address] Performed By: #### 5 7021-8 ####[facility] LABIA [id number] [place] [address] [place] Platelet mean volume (Bld) [Entitic vol] 10.4 fL Normal 9.0-12.7 [facility] Comment on above: Order Comment: Speci men Type: BLOOD SPECIMENOrdering Facility: [facility] Address: [address] [place] [address] Performed By: #### 5 7021-8 ####[facility] LABIA [id number] [place] [address] [place] Platelets (Bld) [#/Vol] 194 10*3/uL Normal 150-400 [facility] Comment on above: Order Comment: Speci men Type: BLOOD SPECIMENOrdering Facility: [facility] Address: [address] [place] [address] Performed By: #### 5 7021-8 ####[facility] LABIA [id number] [place] [address] [place] RBC (Bld) [#/Vol] 4.11 10*6/uL Normal 3.90-5.20 [facility] Comment on above: Order Comment: Speci men Type: BLOOD SPECIMENOrdering Facility: [facility] Address: [address] [place] [address] Performed By: #### 5 7021-8 ####[facility] LABCLIA [id number] [place] [address] [place] WBC (Bld) [#/Vol] 7.18 10*3/uL Normal 3.70-11.00 [facility] Comment on above: Order Comment: Speci men Type: BLOOD SPECIMENOrdering Facility: [facility] Address: [address] [place] [address] Performed By: #### 5 7021-8 ####[facility] LABCLIA [id number] [address] [place] CONSULT PROGon 10-17-2023 CONSULT PROG HNO ID: [id number] Author: BENNY STINSON RPh Service: Pharmacy Author [...] indication Empiric Pharmacist may modify dose per [facility] dose optimization consult agreement Yes 10/17/23 1300 For medications which dose is dependent on renal function, a pharmacist will monitor renal function daily and adjust doses accordingly. Any dose adjustments needed based on changes in indication will require an LIP to enter a new order. Managing Pharmacist: Benny Stinson RPh, available at: [phone] If you have any questions, please contact Pharmacy at [phone]. Estimated Creatinine Clearance: 15.1 mL/min (A) (based [...] Current Temp: 36.6 ?C (97.9 ?F) Benny Castillog, [facility] October 17, 2023 3:17 PM Normal [facility] HISTORY PHYSICALon HISTORY PHYSICAL HNO ID: [id number] Author: RICCO GARLAND MD Service: Urology Author [...] meds, hold home benzo Discussed with Dr. Rajendra Thomas MD Resident PGY-2 Urology [facility] [place] [facility] Pager [phone] For weekend or after hours issues [place] [phone] 11:03 AM 10/17/2023 HPI Jesús Nolan is [...] Garland MD, FACS Director, Surgical Stone Disease, [facility] [place] online marketing coordinator, [employer] Pager [phone] 10/17/2023 Normal [facility] PT panel Coag (PPP)on 2023 INR Coag (PPP) [Relative time] 1.0 {INR} Normal 0.9-1.3 [facility] Comment on above: Order Comment: Speci men Type: BLOOD SPECIMENOrdering Facility: [facility] Address: [address] [place] [address] Result Comment: Kristen min K Antagonist (VKA) Therapeutic Range: INR 2 to 3 (Target INR of 2.5) Note: For patients treated with VKA drugs, such as warfarin, the [employer] 2012 Guideline recommends [...] 70: 252-289 Performed By: #### 3 4528-0 ####[facility] [id number] [place] [address] [place] PT Coag (PPP) [Time] 11.1 s Normal 9.7-13.0 [facility] Comment on above: Order Comment: Speci men Type: BLOOD SPECIMENOrdering Facility: [facility] Address: [address] [place] [address] Performed By: #### 3 4528-0 ####[facility] [id number] [place] [address] [place] Jenaro 10-06-2023 KENISHAN Telephone (MICHAEL) JESÚS NOLAN ([id number]) 1935 F Date Time Provider Department 10/06/23 LETY GARCIA During your visit today, we recorded the following information about you: Lety Garcia RN 10/06/2023 12:04 PM Signed ----- Message from Fanny Nagel Classroom Monitor II sent at 10/06/2023 10:22 AM EST [...] Date Reviewed: 09/23/2023 Reviewed by: Stefanie Ocampo, GLORIA.PUBLIC RELATIONS COUNSELOR, DNP - Fully Assessed Reason for Visit: [...] Status:Closed by LETY GARCIA on 10/07/23 Normal [facility] Jenaro 09-29-2023 JOSH Telephone (URON) JESÚS NOLAN ([id number]) 1935 F Date Time Provider Department 09/29/23 [...] RN 09/30/2023 9:06 AM Signed Called patients renuka Low again to inform her of the antibiotic. [...] Informed her that this was sent to [facility] in [place] and patient should be sure to begin about 1 week prior and no sooner as it would select for resistant bacteria. Patients daughter voiced understanding. Provided office number if questions arise. Moni Chaudhari RN October 01, 2023 9:29 AM Allergies As of Date: 09/29/2023 (No Known Allergies) Date Reviewed: 09/23/2023 Reviewed by: Stefanie Ocampo APRN.PUBLIC RELATIONS COUNSELOR, DNP - Fully Assessed Reason for Visit: [...] Status:Closed by MONI CHAUDHARI on 09/29/23 Normal [facility] Bacteria Ur Culton Bacteria identified [...] , Intermediate >32 , Resistant >64 Abnormal [facility] Comment on above: Performed By: #### 6 30-4 ####[facility] LABCLIA [id number] [place] [address] [place] CBC W Auto Differential pane l (Bld)on 09-23-2023 Basophils (Bld) [#/Vol] 10*3/uL Normal <0.11 [facility] Comment on above: Order Comment: Speci men Type: BLOOD SPECIMENOrdering Facility: [facility] Address: [address] [place] [address] Performed By: #### 5 7021-8 ####[facility] LABCLIA [id number] [place] [address] [place] Basophils/100 WBC (Bld) 0.3 % Normal [facility] Comment on above: Order Comment: Speci men Type: BLOOD SPECIMENOrdering Facility: [facility] Address: [address] [place] [address] Performed By: #### 5 7021-8 ####[facility] LABCLIA [id number] [place] [address] [place] Differential cell count method Nom (Bld) Auto Normal [facility] Comment on above: Order Comment: Speci men Type: BLOOD SPECIMENOrdering Facility: [facility] Address: [address] [place] [address] Performed By: #### 5 7021-8 ####[facility] LABCLIA [id number] [place] [address] [place] Eosinophils (Bld) [#/Vol] 0.16 10*3/uL Normal <0.46 [facility] Comment on above: Order Comment: Speci men Type: BLOOD SPECIMENOrdering Facility: [facility] Address: [address] [place] [address] Performed By: #### 5 7021-8 ####[facility] LABCLIA [id number] [place] [address] [place] Eosinophils/100 WBC (Bld) 2.2 % Normal [facility] Comment on above: Order Comment: Speci men Type: BLOOD SPECIMENOrdering Facility: [facility] Address: [address] [place] [address] Performed By: #### 5 7021-8 ####[facility] LABCLIA [id number] [place] [address] [place] Erythrocyte distribution width (RBC) [Ratio] 14.0 % Normal 11.5-15.0 [facility] Comment on above: Order Comment: Speci men Type: BLOOD SPECIMENOrdering Facility: [facility] Address: [address] [place] [address] Performed By: #### 5 7021-8 ####[facility] LABCLIA [id number] [place] [address] [place] Hematocrit (Bld) [Volume fraction] 39.8 % Normal 36.0-46.0 [facility] Comment on above: Order Comment: Speci men Type: BLOOD SPECIMENOrdering Facility: [facility] Address: [address] [place] [address] Performed By: #### 5 7021-8 ####[facility] LABCLIA [id number] [place] [address] [place] Hemoglobin (Bld) [Mass/Vol] 12.6 g/dL Normal 11.5-15.5 [facility] Comment on above: Order Comment: Speci men Type: BLOOD SPECIMENOrdering Facility: [facility] Address: [address] [place] [address] Performed By: #### 5 7021-8 ####[facility] LABCLIA [id number] [place] [address] [place] Immature granulocytes (Bld) [#/Vol] 10*3/uL Normal <0.10 [facility] Comment on above: Order Comment: Speci men Type: BLOOD SPECIMENOrdering Facility: [facility] Address: [address] [place] [address] Performed By: #### 5 7021-8 ####[facility] LABCLIA [id number] [place] [address] [place] Immature granulocytes/100 WBC (Bld) 0.1 % Normal [facility] Comment on above: Order Comment: Speci men Type: BLOOD SPECIMENOrdering Facility: [facility] Address: [address] [place] [address] Performed By: #### 5 7021-8 ####[facility] LABCLIA [id number] [place] [address] [place] Lymphocytes (Bld) [#/Vol] 2.33 10*3/uL Normal 1.00-4.00 [facility] Comment on above: Order Comment: Speci men Type: BLOOD SPECIMENOrdering Facility: [facility] Address: [address] [place] [address] Performed By: #### 5 7021-8 ####[facility] LABCLIA [id number] [place] [address] [place] Lymphocytes/100 WBC (Bld) 31.4 % Normal [facility] Comment on above: Order Comment: Speci men Type: BLOOD SPECIMENOrdering Facility: [facility] Address: [address] [place] [address] Performed By: #### 5 7021-8 ####[facility] [id number] [place] [address] [place] MCH (RBC) [Entitic mass] 31.7 pg Normal 26.0-34.0 [facility] Comment on above: Order Comment: Speci men Type: BLOOD SPECIMENOrdering Facility: [facility] Address: [address] [place] [address] Performed By: #### 5 7021-8 ####[facility] [id number] [place] [address] [place] MCHC (RBC) [Mass/Vol] 31.7 g/dL Normal 30.5-36.0 [facility] Comment on above: Order Comment: Speci men Type: BLOOD SPECIMENOrdering Facility: [facility] Address: [address] [place] [address] Performed By: #### 5 7021-8 ####[facility] [id number] [place] [address] [place] MCV (RBC) [Entitic vol] 100.3 fL High 80.0-100.0 [facility] Comment on above: Order Comment: Speci men Type: BLOOD SPECIMENOrdering Facility: [facility] Address: [address] [place] [address] Performed By: #### 5 7021-8 ####[facility] LABR[facility] [id number] [place] [address] [place] Monocytes (Bld) [#/Vol] 0.77 10*3/uL Normal <0.87 [facility] Comment on above: Order Comment: Speci men Type: BLOOD SPECIMENOrdering Facility: [facility] Address: [address] [place] [address] Performed By: #### 5 7021-8 ####[facility] LABCLIA [id number] [place] [address] [place] Monocytes/100 WBC (Bld) 10.4 % Normal [facility] Comment on above: Order Comment: Speci men Type: BLOOD SPECIMENOrdering Facility: [facility] Address: [address] [place] [address] Performed By: #### 5 7021-8 ####[facility] LABCLIA [id number] [place] [address] [place] Neutrophils (Bld) [#/Vol] 4.14 10*3/uL Normal 1.45-7.50 [facility] Comment on above: Order Comment: Speci men Type: BLOOD SPECIMENOrdering Facility: [facility] Address: [address] [place] [address] Performed By: #### 5 7021-8 ####[facility] LABCLIA [id number] [place] [address] [place] Neutrophils/100 WBC (Bld) 55.6 % Normal [facility] Comment on above: Order Comment: Speci men Type: BLOOD SPECIMENOrdering Facility: [facility] Address: [address] [place] [address] Performed By: #### 5 7021-8 ####[facility] LABCLIA [id number] [place] [address] [place] Nucleated RBC (Bld) [#/Vol] 10*3/uL Normal <0.01 [facility] Comment on above: Order Comment: Speci men Type: BLOOD SPECIMENOrdering Facility: [facility] Address: [address] [place] [address] Performed By: #### 5 7021-8 ####[facility] LABCLIA [id number] [place] [id number] [place] Nucleated RBC/100 WBC (Bld) [Ratio] 0.0 /100 WBC Normal [facility] Comment on above: Order Comment: Speci men Type: BLOOD SPECIMENOrdering Facility: [facility] Address: [address] [place] [address] Performed By: #### 5 7021-8 ####[facility] LABCLIA [id number] [place] [address] [place] Platelet mean volume (Bld) [Entitic vol] 10.3 fL Normal 9.0-12.7 [facility] Comment on above: Order Comment: Speci men Type: BLOOD SPECIMENOrdering Facility: [facility] Address: [address] [place] [address] Performed By: #### 5 7021-8 ####[facility] LABIA [id number] [place] [address] [place] Platelets (Bld) [#/Vol] 228 10*3/uL Normal 150-400 [facility] Comment on above: Order Comment: Speci men Type: BLOOD SPECIMENOrdering Facility: [facility] Address: [address] [place] [address] Performed By: #### 5 7021-8 ####[facility] LABIA [id number] [place] [address] [place] RBC (Bld) [#/Vol] 3.97 10*6/uL Normal 3.90-5.20 [facility] Comment on above: Order Comment: Speci men Type: BLOOD SPECIMENOrdering Facility: [facility] Address: [address] [place] [address] Performed By: #### 5 7021-8 ####[facility] LABIA [id number] [place] [address] [place] WBC (Bld) [#/Vol] 7.43 10*3/uL Normal 3.70-11.00 [facility] Comment on above: Order Comment: Speci men Type: BLOOD SPECIMENOrdering Facility: [facility] Address: [address] [place] [address] Performed By: #### 5 7021-8 ####[facility] LABCLIA [id number] [address] [place] CONFIRM BLOOD TYPEon 023 ABO A Normal [facility] Comment on above: Order Comment: Speci men Type: BLOOD SPECIMENOrdering Facility: [facility] Address: [address] [place] [address] Performed By: #### C ONABO ####[facility] BLOOD BANKCLIA [id number] [place] [address] [place] Rh Nom (Bld) Positive Normal [facility] Comment on above: Order Comment: Speci men Type: BLOOD SPECIMENOrdering Facility: [facility] Address: [address] [place] [address] Performed By: #### C ONABO ####[facility] BLOOD BANKCLIA [id number] [place] [address] [place] Comprehensive metabolic 2000 panelon 09-23-2023 Albumin [Mass/Vol] 4.3 g/dL Normal 3.9-4.9 [facility] Comment on above: Order Comment: Speci men Type: BLOOD SPECIMENOrdering Facility: [facility] Address: [address] [place] [address] Performed By: #### 2 4323-8 ####[facility] LABCLIA [id number] [place] [address] [place] ALP [Catalytic activity/Vol] 96 U/L Normal 34-123 [facility] Comment on above: Order Comment: Speci men Type: BLOOD SPECIMENOrdering Facility: [facility] Address: [address] [place] [address] Performed By: #### 2 4323-8 ####[facility] LABCLIA [id number] [place] [address] [place] ALT [Catalytic activity/Vol] 17 U/L Normal 7-38 [facility] Comment on above: Order Comment: Speci men Type: BLOOD SPECIMENOrdering Facility: [facility] Address: [address] [place] [address] Performed By: #### 2 4323-8 ####[facility] LABCLIA [id number] [place] [address] [place] Anion gap [Moles/Vol] 15 mmol/L Normal 9-18 [facility] Comment on above: Order Comment: Speci men Type: BLOOD SPECIMENOrdering Facility: [facility] Address: [address] [place] [address] Performed By: #### 2 4323-8 ####[facility] LABCLIA [id number] [place] [address] [place] AST [Catalytic activity/Vol] 22 U/L Normal 13-35 [facility] Comment on above: Order Comment: Speci men Type: BLOOD SPECIMENOrdering Facility: [facility] Address: [address] [place] [address] Performed By: #### 2 4323-8 ####[facility] LABCLIA [id number] [place] [address] [place] Bilirubin [Mass/Vol] 0.3 mg/dL Normal 0.2-1.3 [facility] Comment on above: Order Comment: Speci men Type: BLOOD SPECIMENOrdering Facility: [facility] Address: [address] [place] [address] Performed By: #### 2 4323-8 ####[facility] LABCLIA [id number] [place] [address] [place] Calcium [Mass/Vol] 9.4 mg/dL Normal 8.5-10.2 [facility] Comment on above: Order Comment: Speci men Type: BLOOD SPECIMENOrdering Facility: [facility] Address: [address] [place] [address] Performed By: #### 2 4323-8 ####[facility] LABCLIA [id number] [place] [address] [place] Chloride [Moles/Vol] 103 mmol/L Normal 97-105 [facility] Comment on above: Order Comment: Speci men Type: BLOOD SPECIMENOrdering Facility: [facility] Address: [address] [place] [address] Performed By: #### 2 4323-8 ####[facility] LABCLIA [id number] [place] [address] [place] CO2 [Moles/Vol] 26 mmol/L Normal 22-30 [facility] Comment on above: Order Comment: Speci men Type: BLOOD SPECIMENOrdering Facility: [facility] Address: [address] [place] [address] Performed By: #### 2 4323-8 ####[facility] LABCLIA [id number] [place] [address] [place] Creatinine [Mass/Vol] 2.05 mg/dL High 0.58-0.96 [facility] Comment on above: Order Comment: Speci men Type: BLOOD SPECIMENOrdering Facility: [facility] Address: [address] [place] [address] Performed By: #### 2 4323-8 ####[facility] LABIA [id number] [place] [address] [place] Creatinine and Glomerular filtration rate.predicted panel (S/P/Bld) 23 mL/min/1.73m??? Low >=60 [facility] Comment on above: Order Comment: Speci men Type: BLOOD SPECIMENOrdering Facility: [facility] Address: [address] [place] [address] Result Comment: Melissa mated Glomerular Filtration Rate [...] actual GFR. Performed By: #### 2 4323-8 ####[facility] LABIA [id number] [place] [address] [place] Glucose [Mass/Vol] 107 mg/dL High 74-99 [facility] Comment on above: Order Comment: Speci men Type: BLOOD SPECIMENOrdering Facility: [facility] Address: [address] [place] [address] Result Comment: The [employer] (ADA) provides guidance for cutoff [...] Standards of Medical Care in Diabetes 2016, [employer]. Diabetes Care. 2016.39(Suppl 1). Performed By: #### 2 4323-8 ####[facility] LABIA [id number] [place] [address] [place] Potassium [Moles/Vol] 4.0 mmol/L Normal 3.7-5.1 [facility] Comment on above: Order Comment: Speci men Type: BLOOD SPECIMENOrdering Facility: [facility] Address: [address] [place] [address] Performed By: #### 2 4323-8 ####[facility] [id number] [place] [address] [place] Protein [Mass/Vol] 7.0 g/dL Normal 6.3-8.0 [facility] Comment on above: Order Comment: Speci men Type: BLOOD SPECIMENOrdering Facility: [facility] Address: [address] [place] [address] Performed By: #### 2 4323-8 ####[facility] LABCLIA [id number] [place] [address] [place] Sodium [Moles/Vol] 144 mmol/L Normal 136-144 [facility] Comment on above: Order Comment: Speci men Type: BLOOD SPECIMENOrdering Facility: [facility] Address: [address] [place] [address] Performed By: #### 2 4323-8 ####[facility] LABIA [id number] [place] [address] [place] Urea nitrogen [Mass/Vol] 30 mg/dL High 7-21 [facility] Comment on above: Order Comment: Speci men Type: BLOOD SPECIMENOrdering Facility: [facility] Address: [address] [place] [address] Performed By: #### 2 4323-8 ####[facility] LABIA [id number] [place] [address] [place] ECG COMPLETEon 09-23-2023 ECG COMPLETE Ventricular Rate : 6 2 BPM Atrial Rate : 62 BPM P-R Interval : 202 ms QRS Duration : 90 ms Q-T Interval : 424 ms QTC Calculation(Bazett) : 430 ms Calculated P Mickleton : 100 degrees Calculated R Mickleton : -29 degrees Calculated T Mickleton : 17 degrees NORMAL SINUS RHYTHM LEFT VENTRICULAR HYPERTROPHY POSSIBLE ANTEROSEPTAL MYOCARDIAL INFARCTION , 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 ECG Confirmed by MITZI PACHECO MD () on 10/13/2023 8:12:00 AM NAME : JESÚS NOLAN PID : [id number] : 1935 Gender : Female Race : ORD : [id number] Procedure Date : Sep 23 2023 15:23:33 [...] OCAMPO Acquired by : VERONIKA CONWAY Normal [facility] ECG COMPLETE Ventricular Rate : 7 5 BPM Atrial Rate : 75 BPM QRS Duration : 108 ms Q-T Interval : 410 ms QTC Calculation(Bazett) : 457 ms Calculated R Mickleton : -32 degrees Calculated T Mickleton : 97 degrees 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 , 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 ECG Reconfirmed by KIAN CLARK MD ([id number]) on 09/23/2023 8:45:27 PM NAME : JESÚS NOLAN PID : [id number] : 1935 Gender : Female Race : ORD : [id number] Procedure Date : Sep 23 2023 12:56:29 Edit Date : Sep 23 2023 20:45:28 Diagnosis: 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 , 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 ECG Reconfirmed by KIAN CLARK MD ([id number]) on 09/23/2023 8:45:27 PM Test Reason : Location : 119 : A17 Overread By : KIAN CLARK MD Edited By : KIAN CLARK MD Referred By : , Acquired by : SANTI TAVERA Normal [facility] HISTORY PHYSICALon HISTORY PHYSICAL HNO ID: [id number] Author: STEFANIE OCAMPO APRN.KENISHA, LAUREN Service: ? Author Type: Nurse Practitioner Type: [...] 35 kg/m2 Non-male patient STOP-Bang Score: 1 [id number] Score: Hypertension history: Yes [id number] Score: 1 ARISCAT Score: Age: >80 Preoperative [...] fevers. Neurological: No history of TIA's, stroke, LICENSED PLUMBER tumor, impaired sensorium, hemiplegia, paraplegia or quadraplegia. No neurological symptoms or problems. Respiratory: No history of current cough or dyspnea, or pneumonia in the past 6 weeks. No history of respiratory/pulmonary symptoms or problems. Cardiovascular: Positive for: hypertension (on rx) Negative for: abdominal aortic aneurysm, AICD/PPM, anticoagulation (more content not included)... Normal [facility] TYPE AND SCREEN,30 DAYon ABO A Normal [facility] Comment on above: Order Comment: Speci men Type: BLOOD SPECIMENOrdering Facility: [facility] Address: [address] [place] [address] Performed By: #### T SCR30 ####[facility] BLOOD BANKCLIA [id number] [address] [place] HISTORICAL AB SCR STATUS Negative Normal [facility] Comment on above: Order Comment: Speci men Type: BLOOD SPECIMENOrdering Facility: [facility] Address: [address] [place] [address] Performed By: #### T SCR30 ####[facility] BLOOD BANKCLIA [id number] [address] [place] Rh Nom (Bld) Positive Normal [facility] Comment on above: Order Comment: Speci men Type: BLOOD SPECIMENOrdering Facility: [facility] Address: [address] [place] [address] Performed By: #### T SCR30 ####[facility] BLOOD BANKCLIA [id number] [address] [place] Consultation Noteon 09-12-20 Consultation Note [id number]#1.0 0TIFF Normal [facility] Bacteria Ur Culton 3 Bacteria identified Cx Nom (U) CULTURE, URINE: No growth (<1,000 CFU/ml) Normal [facility] Comment on above: Performed By: #### 6 30-4 ####[facility] LABCLIA [id number] [address] [place] CNOVon 09-07-2023 CNOV Office Visit (UROLMN ) JESÚS NOLAN ([id number]) 1935 F Date Time Provider Department 09/07/23 [...] hardly hear me. Though not listed in [facility], patient's daughter indicates Dr. Harsh [...] based on size, location, hounsfield units and qfsz-bb-rpqyq distance: 0% 3. Ureteroscopy - risks of [...] with more than 50% of the total svrw-pq-hsvk time of the visit devoted to patient counseling/coordinatio n of care. Ricco Garland MD, FACS Director, Surgical Stone Disease, [facility] [place] online marketing coordinator, [facility] Pager [phone] 09/07/2023 Referring Provider: SELF [200] Allergies As of Date: 09/07/2023 (No Known Allergies) Date Reviewed: 09/07/2023 Reviewed by: Karen Calvillo [facility] - Fully Assessed Primary Visit Diagnosis:Staghorn calculus [N20.0] Other Visit Diagnoses:Abnormal urinalysis [R82.90] History of recurrent UTIs [Z87.440] Essential hypertension [I10] Constipation, unspecified constipation type [K59.00] Arthritis [M19.90] Status post hip surgery [Z98.890] Order(s):URINE CULTURE [SQURCUL] Order #: [id number]. #:[id number] estradiol (ESTRACE) 0.01 % (0.1 mg/gram) vaginal creamUse 1 g vaginally one time a week.Disp: 42 gRfl: 1 Prescriptions (more content not included)... Normal [facility] URINALYSIS, REFLEX MICROSCOP ICon 09-07-2023 Bacteria LM.HPF (Urine sed) [#/Area] Few Abnormal None Seen [facility] Comment on above: Order Comment: Speci men Type: URINE SPECIMENOrdering Facility: [facility] Address: [address] [place] [address] Performed By: #### L [id number] ####[facility] LABCLIA [id number] [place] [address] [place] Bilirubin Ql (U) Negative Normal Negative [facility] Comment on above: Order Comment: Speci men Type: URINE SPECIMENOrdering Facility: [facility] Address: [address] [place] [address] Performed By: #### L [id number] ####[facility] LABCLIA [id number] [place] [address] [place] Clarity (Unsp spec) Clear Normal [facility] Comment on above: Order Comment: Speci men Type: URINE SPECIMENOrdering Facility: [facility] Address: [address] [place] [address] Performed By: #### L [id number] ####[facility] LABCLIA [id number] [place] [address] [place] Color (U) Light Yellow Normal Yellow [facility] Comment on above: Order Comment: Speci men Type: URINE SPECIMENOrdering Facility: [facility] Address: [address] [place] [address] Performed By: #### L [id number] ####[facility] LABCLIA [id number] [place] [address] [place] Epithelial cells LM.HPF (Urine sed) [#/Area] Few Normal [facility] Comment on above: Order Comment: Speci men Type: URINE SPECIMENOrdering Facility: [facility] Address: [address] [place] [address] Performed By: #### L [id number] ####[facility] LABCLIA [id number] [place] [address] [place] Glucose Test strip (U) [Mass/Vol] Negative Normal Trace, Negative [facility] Comment on above: Order Comment: Speci men Type: URINE SPECIMENOrdering Facility: [facility] Address: [address] [place] [address] Performed By: #### L [id number] ####[facility] LABCLIA [id number] [place] [address] [place] Hemoglobin Ql (U) Negative Normal Negative, Trace [facility] Comment on above: Order Comment: Speci men Type: URINE SPECIMENOrdering Facility: [facility] Address: [address] [place] [address] Performed By: #### L [id number] ####[facility] LABCLIA [id number] [place] [address] [place] Hyaline casts (Urine sed) [#/Area] 1-3 /LPF Abnormal 0 /LPF [facility] Comment on above: Order Comment: Speci men Type: URINE SPECIMENOrdering Facility: [facility] Address: [address] [place] [address] Performed By: #### L [id number] ####[facility] LABCLIA [id number] [place] [address] [place] Ketones Ql (U) Negative Normal Negative, Trace [facility] Comment on above: Order Comment: Speci men Type: URINE SPECIMENOrdering Facility: [facility] Address: [address] [place] [address] Performed By: #### L [id number] ####[facility] LABCLIA [id number] [place] [address] [place] Leukocyte esterase Test strip Ql (U) 500 Dorian/uL Abnormal Negative, 25 Dorian/uL [facility] Comment on above: Order Comment: Speci men Type: URINE SPECIMENOrdering Facility: [facility] Address: [address] [place] [address] Performed By: #### L [id number] ####[facility] LABIA [id number] [place] [address] [place] Nitrite Ql (U) Negative Normal Negative [facility] Comment on above: Order Comment: Speci men Type: URINE SPECIMENOrdering Facility: [facility] Address: [address] [place] [address] Performed By: #### L [id number] ####[facility] LABIA [id number] [place] [address] [place] pH (U) 5.5 [pH] Normal 5.0-8.0 [facility] Comment on above: Order Comment: Speci men Type: URINE SPECIMENOrdering Facility: [facility] Address: [address] [place] [address] Performed By: #### L [id number] ####[facility] LABIA [id number] [place] [address] [place] Protein (U) [Mass/Vol] Trace Normal Trace , Negative [facility] Comment on above: Order Comment: Speci men Type: URINE SPECIMENOrdering Facility: [facility] Address: [address] [place] [address] Performed By: #### L [id number] ####[facility] LABIA [id number] [place] [address] [place] RBC LM.HPF (Urine sed) [#/Area] 3-5 /HPF Abnormal 0-3 /HPF [facility] Comment on above: Order Comment: Speci men Type: URINE SPECIMENOrdering Facility: [facility] Address: [address] [place] [address] Performed By: #### L [id number] ####[facility] LABCLIA [id number] [place] [address] [place] Specific gravity (U) [Rel density] 1.014 Normal 1.005-1.030 [facility] Comment on above: Order Comment: Speci men Type: URINE SPECIMENOrdering Facility: [facility] Address: [address] [place] [address] Performed By: #### L [id number] ####[facility] LABIA [id number] [place] [address] [place] Urobilinogen Ql (U) Negative Normal Negative [facility] Comment on above: Order Comment: Speci men Type: URINE SPECIMENOrdering Facility: [facility] Address: [address] [place] [address] Performed By: #### L [id number] ####[facility] LABIA [id number] [place] [address] [place] WBC LM.HPF (Urine sed) [#/Area] /[HPF] Abnormal 0-5 /HPF [facility] Comment on above: Order Comment: Speci men Type: URINE SPECIMENOrdering Facility: [facility] Address: [address] [place] [address] Performed By: #### L [id number] ####[facility] LABIA [id number] [place] [address] [place] Consultation Noteon 09-06-20 Consultation Note [id number]#1.0 0TIFF Normal [facility] Consultation Noteon 09-03-20 Consultation Note [id number]#1.0 0TIFF Normal [facility] Lab Reportson 09-03-2023 Lab Reports [id number]#1.0 0TIFF Normal [facility] Basic Metabolic Panelon 12-0 Anion gap [Moles/Vol] 11.2 mmol/L Normal 6.0-15.0 [facility] Comment on above: Performed By: #### EDITA Warren, CBCNO ####[place] [place] [address] [facility] Calcium [Mass/Vol] 8.0 mg/dL Low 8.6-10.3 [facility] Comment on above: Performed By: #### EDITA Warren, CBCNO ####[address] [place] [address] [facility] Chloride [Moles/Vol] 110 mmol/L High 98-107 [facility] Comment on above: Performed By: #### EDITA Warren, CBCNO ####[address] [address] [facility] CO2 [Moles/Vol] 25.2 mmol/L Normal 21.0-31.0 [facility] Comment on above: Performed By: #### EDITA Warren, CBCNO ####[address] [address] [facility] Creatinine [Mass/Vol] 2.30 mg/dL High 0.60-1.20 [facility] Comment on above: Performed By: #### EDITA Warren, CBCNO ####[address] [address] [facility] Creatinine Clr Calc Pharmacy 14.54 [facility] Comment on above: Performed By: #### EDITA Warren, CBCNO ####[address] [place] [address] [place] GFR/1.73 sq M.predicted MDRD (S/P/Bld) [Vol rate/Area] 20.194 mL/min/{1.73_m2} [facility] Comment on above: Performed By: #### EDITA Warren, CBCNO ####[address] [address] [facility] Glucose [Mass/Vol] 109 mg/dL High 70-100 [facility] Comment on above: Result Comment: [facility] Glucose Reference Range is dependent on time and content of last meal. Glucose of more than 200 mg/dL in a nonstressed, ambulatory subject supports the diagnosis of Diabetes Mellitus. ADA recommended reference range Performed By: #### M EDITA Padgett, CBCNO ####[facility] [address] [place] [id number] [facility] Potassium [Moles/Vol] 4.4 mmol/L Normal 3.5-5.1 [facility] Comment on above: Performed By: #### M EDITA Padgett, CBCNO ####[place] [id number] [facility] Sodium [Moles/Vol] 142 mmol/L Normal 136-145 [facility] Comment on above: Performed By: #### EDITA Warren, CBCNO ####[place] [address] [facility] Urea nitrogen [Mass/Vol] 31 mg/dL High 7-25 [facility] Comment on above: Performed By: #### EDITA Warren, CBCNO ####[address] Hemogram CBC Without Diffon 09-02-2023 Erythrocyte distribution width (RBC) [Ratio] 14.1 % Normal 11.9-15.3 [facility] Comment on above: Performed By: #### EDITA Warren, CBCNO ####[place] [id number] [facility] Hematocrit (Bld) [Volume fraction] 32.6 % Low 34.0-46.4 [facility] Comment on above: Performed By: #### EDITA Warren, CBCNO ####[place] [address] [facility] Hemoglobin (Bld) [Mass/Vol] 10.9 g/dL Low 11.8-15.4 [facility] Comment on above: Performed By: #### EDITA Warren, CBCNO ####[address] [address] [facility] MCH (RBC) [Entitic mass] 31.6 pg Normal 24.7-34.3 [facility] Comment on above: Performed By: #### EDITA Warren CBCNO ####[address] [place] [id number] [facility] MCV (RBC) [Entitic vol] 94.7 fL Normal 80-100 [facility] Comment on above: Performed By: #### EDITA Warren CBCNO ####[address] [place] [id number] [facility] Mean Corpuscular HGB Conc 33.4 g/dL Normal 32.0-35.0 [facility] Comment on above: Performed By: #### EDITA Warren CBCNO ####[address] Platelet mean volume (Bld) [Entitic vol] 8.8 fL Normal 6.3-10.7 [facility] Comment on above: Result Comment: PERF ORMED BY: [facility] [address] [facility] [place] [address] PATHOLOGIST POND TENDER BARBARA MUNOZ M.D. Performed By: #### EDITA Warren CBCNO ####[place] [id number] [facility] Platelets (Bld) [#/Vol] 192 10*3/uL Normal 150-450 [facility] Comment on above: Performed By: #### EDITA Warren CBCNO ####[place] [address] [facility] RBC (Bld) [#/Vol] 3.44 10*6/uL Low 3.60-5.00 [facility] Comment on above: Performed By: #### EDITA Warren CBCNO ####[place] [address] [facility] WBC (Bld) [#/Vol] 7.8 10*3/uL Normal 3.8-11.6 [facility] Comment on above: Performed By: #### EDITA Warren, CBCNO ####[address] [address] [facility] Magnesiumon 09-02-2023 Magnesium [Mass/Vol] 2.5 mg/dL Normal 1.9-2.7 [facility] Comment on above: Result Comment: PERF ORMED BY: [facility] [id number] PATHOLOGIST POND TENDER BARBARA MUNOZ M.D. Performed By: #### M G, BMP, CBCNO ####[address] [address] [facility] Ammoniaon 09-01-2023 Ammonia (P) [Moles/Vol] 23 umol/L Normal 11-35 [facility] Comment on above: Result Comment: PERF ORMED BY: [facility] [address] [place] [id number] PATHOLOGIST POND TENDER BARBARA MUNOZ M.D. Performed By: #### A MM ####[place] [id number] [facility] Basic Metabolic Panelon 12-0 Anion gap [Moles/Vol] 11.9 mmol/L Normal 6.0-15.0 [facility] Comment on above: Performed By: #### V [id number], MG, CBC, BMP, TSH3 ####[address] [address] [facility] Calcium [Mass/Vol] 8.4 mg/dL Low 8.6-10.3 [facility] Comment on above: Performed By: #### V [id number], MG, CBC, BMP, TSH3 ####[address] [address] [facility] Chloride [Moles/Vol] 111 mmol/L High 98-107 [facility] Comment on above: Performed By: #### V [id number], MG, CBC, BMP, TSH3 ####[address] [address] [facility] CO2 [Moles/Vol] 23.2 mmol/L Normal 21.0-31.0 [facility] Comment on above: Performed By: #### V [id number], MG, CBC, BMP, TSH3 ####[place] [address] Creatinine [Mass/Vol] 2.45 mg/dL High 0.60-1.20 [facility] Comment on above: Performed By: #### V [id number], MG, CBC, BMP, TSH3 ####[address] [place] [id number] [facility] Creatinine Clr Calc Pharmacy 13.65 [facility] Comment on above: Performed By: #### V [id number], MG, CBC, BMP, TSH3 ####[address] [place] [id number] [place] GFR/1.73 sq M.predicted MDRD (S/P/Bld) [Vol rate/Area] 18.720 mL/min/{1.73_m2} [facility] Comment on above: Performed By: #### V [id number], MG, CBC, BMP, TSH3 ####[place] [address] [facility] Glucose [Mass/Vol] 90 mg/dL Normal 70-100 [facility] Comment on above: Result Comment: [place] Glucose Reference Range is dependent on time and content of last meal. Glucose of more than 200 mg/dL in a nonstressed, ambulatory subject supports the diagnosis of Diabetes Mellitus. ADA recommended reference range Performed By: #### V [id number], MG, CBC, BMP, TSH3 ####[address] [place] [id number] [facility] Potassium [Moles/Vol] 4.1 mmol/L Normal 3.5-5.1 [facility] Comment on above: Performed By: #### V [id number], MG, CBC, BMP, TSH3 ####[place] [address] [facility] Sodium [Moles/Vol] 142 mmol/L Normal 136-145 [facility] Comment on above: Performed By: #### V [id number], MG, CBC, BMP, TSH3 ####[facility] [id number] Urea nitrogen [Mass/Vol] 28 mg/dL High 7-25 [facility] Comment on above: Performed By: #### V [id number], MG, CBC, BMP, TSH3 ####[facility] [id number] [place], [place] [id number] [facility] Blood Cultureon 09-01-2023 Bacteria identified Cx Nom (Bld) PT IS BEING MEDICATED NO GROWTH 5 DAYS PERFORMED BY: [place] [address] PATHOLOGIST POND TENDER BARBARA MUNOZ M.D. [facility] Comment on above: Performed By: #### L MARIN CUBLD #### [facility] [address] [place] [address] Bacteria identified Cx Nom (Bld) PT IS BEING MEDICATED NO GROWTH 5 DAYS PERFORMED BY: [place] [address] PATHOLOGIST POND TENDER BARBARA MUNOZ M.D. [facility] Comment on above: Performed By: #### L SARANYA FUNESLD #### [facility] [address] [place] [address] CT abdomen pelvis wo conon 1 11-02-2022 CT abdomen pelvis wo con [facility] [address] [place] [address] [place] [address] CT Scan Report Signed Patient: Jesús Nolan MR#: [id number] 34 : 1935 Acct:[id number] Age/Sex: 88 / F ADM Date: 08/31/23 Loc: Room: [address] [place] [address] Type: ADM IN Attending Dr: Riky Bundy [...] Isabel Vega M.D.09/01/2023 6:29 AM Dictation Location: [place] [address] Transcribed By: RYAN 09/01/23628 Dictated By: Isabel Vega MD 09/01/23622 Signed By: 09/01/[address] [facility] [address] head[facility] head[facility] wo [facility] Main [place] [id number] CT Scan Report Signed Patient: Jesús Nolan MR#: [id number] [birth year] : 1935 Acct:[id number] Age/Sex: 88 / F ADM Date: 08/31/23 Loc: Room: 5J9281-7 Type: ADM IN Attending Dr: Riky Bundy [...] Isabel Vega M.D.09/01/2023 6:14 AM Dictation Location: [place] [address] Transcribed By: [facility] 09/01/23613 Dictated By: Isabel Vega MD 09/01/23611 Signed By: 09/01/23613 Normal [facility] Complete Blood Count Auto Di ffon 09-01-2023 Basophils (Bld) [#/Vol] 0.0 10*3/uL Normal 0.0-0.2 [facility] Comment on above: Result Comment: PERF ORMED BY: [place] [address] PATHOLOGIST POND TENDER BARBARA MUNOZ M.D. Performed By: #### V [id number], MG, CBC, BMP, TSH3 ####[address] Basophils/100 WBC (Bld) 0.3 % Normal . [facility] Comment on above: Performed By: #### V [id number], MG, CBC, BMP, TSH3 ####[address] Eosinophils (Bld) [#/Vol] 0.1 10*3/uL Normal 0.0-0.45 [facility] Comment on above: Performed By: #### V [id number], MG, CBC, BMP, TSH3 ####[address] Eosinophils/100 WBC (Bld) 1.6 % Normal . [facility] Comment on above: Performed By: #### V [id number], MG, CBC, BMP, TSH3 ####[address] Erythrocyte distribution width (RBC) [Ratio] 14.0 % Normal 11.9-15.3 [facility] Comment on above: Performed By: #### V [id number], MG, CBC, BMP, TSH3 ####[address] Hematocrit (Bld) [Volume fraction] 35.9 % Normal 34.0-46.4 [facility] Comment on above: Performed By: #### V [id number], MG, CBC, BMP, TSH3 ####[address] Hemoglobin (Bld) [Mass/Vol] 11.9 g/dL Normal 11.8-15.4 [facility] Comment on above: Performed By: #### V [id number], MG, CBC, BMP, TSH3 ####[address] Lymphocytes (Bld) [#/Vol] 1.5 10*3/uL Normal 1.00-4.8 [facility] Comment on above: Performed By: #### V [id number], MG, CBC, BMP, TSH3 ####[address] Lymphocytes/100 WBC (Bld) 19.5 % Normal . [facility] Comment on above: Performed By: #### V [id number], MG, CBC, BMP, TSH3 ####[address] MCH (RBC) [Entitic mass] 31.2 pg Normal 24.7-34.3 [facility] Comment on above: Performed By: #### V [id number], MG, CBC, BMP, TSH3 ####[address] MCV (RBC) [Entitic vol] 94.6 fL Normal 80-100 [facility] Comment on above: Performed By: #### V [id number], MG, CBC, BMP, TSH3 ####[address] Mean Corpuscular HGB Conc 33.0 g/dL Normal 32.0-35.0 [facility] Comment on above: Performed By: #### V [id number], MG, CBC, BMP, TSH3 ####[address] Monocytes (Bld) [#/Vol] 1.0 10*3/uL High 0.0-0.8 [facility] Comment on above: Performed By: #### V [id number], MG, CBC, BMP, TSH3 ####[address] Monocytes/100 WBC (Bld) 12.4 % Normal . [facility] Comment on above: Performed By: #### V [id number], MG, CBC, BMP, TSH3 ####[address] Neutrophils (Bld) [#/Vol] 5.2 10*3/uL Normal 1.8-7.7 [facility] Comment on above: Performed By: #### V [id number], MG, CBC, BMP, TSH3 ####[address] Neutrophils/100 WBC (Bld) 66.2 % Normal . [facility] Comment on above: Performed By: #### V [id number], MG, CBC, BMP, TSH3 ####[address] NRBC% 0.0 /100{WBC} Normal 0-0.5 [facility] Comment on above: Performed By: #### V [id number], MG, CBC, BMP, TSH3 ####[address] Platelet mean volume (Bld) [Entitic vol] 8.2 fL Normal 6.3-10.7 [facility] Comment on above: Performed By: #### V [id number], MG, CBC, BMP, TSH3 ####[address] Platelets (Bld) [#/Vol] 216 10*3/uL Normal 150-450 [facility] Comment on above: Performed By: #### V [id number], MG, CBC, BMP, TSH3 ####[address] RBC (Bld) [#/Vol] 3.80 10*6/uL Normal 3.60-5.00 [facility] Comment on above: Performed By: #### V [id number], MG, CBC, BMP, TSH3 ####[address] WBC (Bld) [#/Vol] 7.8 10*3/uL Normal 3.8-11.6 [facility] Comment on above: Performed By: #### V [id number], MG, CBC, BMP, TSH3 ####[facility] [address] Consultation Noteon 09-01-20 Consultation Note [id number] 20 [id number] Normal Meza [facility] Dipstick and Microscopicon 1 11-02-2022 Appearance (U) Cloudy Critically abnormal Clear [facility] Comment on above: Order Comment: Name Collection Type:: Voided Performed By: #### C UU, ADDONUAPLUS #### [facility] [address] [place] [address] Bacteria,Urine None Seen Normal None Seen [facility] Comment on above: Order Comment: Name Collection Type:: Voided Result Comment: PERF ORMED BY: [place] [address] PATHOLOGIST POND TENDER BARBARA MUNOZ M.D. Performed By: #### C UU, ADDONUAPLUS #### [facility] [address] [place] [address] Bilirubin,Urine Negative Normal Negative [facility] Comment on above: Order Comment: Name Collection Type:: Voided Performed By: #### C UU, ADDONUAPLUS #### [facility] [address] [place] [address] Color (U) Yellow Normal Yellow [facility] Comment on above: Order Comment: Name Collection Type:: Voided Performed By: #### C UU, ADDONUAPLUS #### [facility] [address] [place] [address] Glucose Ql (U) Normal Normal Normal [facility] Comment on above: Order Comment: Name Collection Type:: Voided Performed By: #### C UU, ADDONUAPLUS #### [facility] [address] [place] [address] Ketones Ql (U) Negative Normal Negative [facility] Comment on above: Order Comment: Name Collection Type:: Voided Performed By: #### C UU, ADDONUAPLUS #### [facility] [address] [place] [address] Leukocyte esterase Test strip Ql (U) 4+ High Negative [facility] Comment on above: Order Comment: Name Collection Type:: Voided Performed By: #### C UU, ADDONUAPLUS #### [address] Nitrite,Urine Negative Normal Negative [facility] Comment on above: Order Comment: Name Collection Type:: Voided Performed By: #### C UU, ADDONUAPLUS #### [address] Occult Blood,Urine Trace High Negative [facility] Comment on above: Order Comment: Name Collection Type:: Voided Result Comment: PERF ORMED BY: [place] [address] PATHOLOGIST POND TENDER BARBARA MUNOZ M.D. Performed By: #### C UU, ADDONUAPLUS #### [address] pH (U) 6.0 [pH] Normal 5.0-9.0 [facility] Comment on above: Order Comment: Name Collection Type:: Voided Performed By: #### C UU, ADDONUAPLUS #### [address] Protein (U) [Mass/Vol] 30 mg/dL High Negative [facility] Comment on above: Order Comment: Name Collection Type:: Voided Performed By: #### C UU, ADDONUAPLUS #### [address] RBC,Urine 1-2 Normal 0-4 [facility] Comment on above: Order Comment: Name Collection Type:: Voided Performed By: #### C UU, ADDONUAPLUS #### [address] Specificy [place],Urine 1.016 Normal 1.001-1.030 [facility] Comment on above: Order Comment: Name Collection Type:: Voided Performed By: #### C UU, ADDONUAPLUS #### [facility] [address] Squamous Epithelial Cell,Urine 3-4 High 0-2 [facility] Comment on above: Order Comment: Name Collection Type:: Voided Performed By: #### C UU, ADDONUAPLUS #### [facility] [address] Urobilinogen,Urine Normal Normal Normal [facility] Comment on above: Order Comment: Name Collection Type:: Voided Performed By: #### C UU, ADDONUAPLUS #### [facility] [address] WBC,Urine 50-100 High 0-4 [facility] Comment on above: Order Comment: Name Collection Type:: Voided Performed By: #### C UU, ADDONUAPLUS #### [facility] [address] [place] [address] Lactic Acidon 09-01-2023 Lactate [Moles/Vol] 0.8 mmol/L Normal 0.5-2.2 [facility] Comment on above: Order Comment: PT IS BEING MEDICATED Result Comment: PERF ORMED BY: [place] [address] PATHOLOGIST POND TENDER BARBARA MUNOZ M.D. Performed By: #### L ACTIC, CUBLD #### [facility] [address] [place] [address] Magnesiumon 09-01-2023 Magnesium [Mass/Vol] 2.2 mg/dL Normal 1.9-2.7 [facility] Comment on above: Performed By: #### V [id number], MG, CBC, BMP, TSH3 ####[facility] [address] Thyroid Stimulating Hormoneo n 09-01-2023 TSH Qn 1.90 m[IU]/L Normal 0.45-5.33 [facility] Comment on above: Result Comment: PERF ORMED BY: [place] [address] PATHOLOGIST POND TENDER BARBARA MUNOZ M.D. Performed By: #### V [id number], MG, CBC, BMP, TSH3 ####[address] Troponin I High Sensitivityo n 09-01-2023 Troponin I High Sensitivity 33.3 pg/mL High 0.0-15.0 [facility] Comment on above: Result Comment: PERF ORMED BY: [place] [address] PATHOLOGIST POND TENDER BARBARA MUNOZ M.D. Performed By: #### H S TROP #### [facility] [address] [place] [address] Urine Cultureon 09-01-2023 Bacteria identified Cx Nom (U) 75,000 colonies/ml mixed bacterial skin contaminants 2 Days PERFORMED BY: [place] [address] PATHOLOGIST POND TENDER BARBARA MUNOZ M.D. Normal [facility] Comment on above: Performed By: #### C UU, ADDONUAPLUS #### [facility] [address] [place] [address] Vit. B12/Folate Profileon Cobalamin (Vitamin B12) [Mass/Vol] 465 pg/mL Normal 180-914 [facility] Comment on above: Performed By: #### V [id number], MG, CBC, BMP, TSH3 ####[address] Folate 41.0 ng/mL Normal >5.9 [facility] Comment on above: Result Comment: Danielle te reference range: >5.9 ng/ml The WHO technical consultation on folate and vitamin b12 deficiencies has determined that folate concentrations less than 4 ng/ml are considered deficient. Performed By: #### V [id number], MG, CBC, BMP, TSH3 ####[address] XR chest 2V*on 09-01-2023 XR chest 2V* [facility] [place] [address] XRay Report Signed Patient: Jesús Nolan MR#: [id number] 34 : 1935 Acct:[id number] Age/Sex: 88 / F ADM Date: 08/31/23 Loc: Room: [address] [place] [address] Type: ADM IN Attending Dr: Riky Bundy [...] Isabel Vega M.D.09/01/2023 6:23 AM Dictation Location: [place] [address] Transcribed By: [facility] 09/01/23622 Dictated By: Isabel Vega MD 09/01/23621 Signed By: 09/01/23622 Normal [facility] Alanine aminotransferase [En zymatic activity/volume] in Serum or PlasmaOrdered By: Destiny Irwin on 08-31-2023 ALT [Catalytic activity/Vol] 29 U/L 7-52 [facility] Albumin [Mass/volume] in Ser um or Plasma by Bromocresol green (BCG) dye binding methoOrdered By: Destiny Irwin on 08-31-2023 Albumin BCG dye [Mass/Vol] 4.7 g/dL 3.5-5.7 [facility] Alkaline phosphatase [Enzyma tic activity/volume] in Serum or PlasmaOrdered By: Destiny Irwin on 08-31-2023 ALP [Catalytic activity/Vol] 101 U/L 34-104 [facility] Aspartate aminotransferase [ Enzymatic activity/volume] in Serum or PlasmaOrdered By: Destiny Irwin on 08-31-2023 AST [Catalytic activity/Vol] 29 U/L 13-39 [facility] Automated erythrocytes count in urine sediment (number/area)Ordered By: Destiny Irwin on 08-31-2023 RBC Auto (Urine sed) [#/Area] 1-2 [HPF] 0-4 [facility] Automated leukocytes count i n urine sediment (number/area)Ordered By: Destiny Irwin on 08-31-2023 WBC Auto (Urine sed) [#/Area] 50-100 [HPF] 0-4 [facility] Basic Metabolic Panelon 12 Anion gap [Moles/Vol] 16.9 mmol/L High 6.0-15.0 [facility] Comment on above: Performed By: #### B MP, HEPATIC, CBC, LIPASE ####[facility] [address] [place] [address] [facility] Calcium [Mass/Vol] 9.5 mg/dL Normal 8.6-10.3 [facility] Comment on above: Performed By: #### B MP, HEPATIC, CBC, LIPASE ####[place] [address] [place] [address] [facility] Chloride [Moles/Vol] 103 mmol/L Normal 98-107 [facility] Comment on above: Performed By: #### B MP, HEPATIC, CBC, LIPASE ####[place] [address] [place] [address] [facility] CO2 [Moles/Vol] 23.7 mmol/L Normal 21.0-31.0 [facility] Comment on above: Performed By: #### B MP, HEPATIC, CBC, LIPASE ####[facility] [place] [address] [facility] Creatinine [Mass/Vol] 2.74 mg/dL High 0.60-1.20 [facility] Comment on above: Performed By: #### B MP, HEPATIC, CBC, LIPASE ####[facility] [place] [address] [facility] Creatinine Clr Calc Pharmacy 12.25 [facility] Comment on above: Performed By: #### B MP, HEPATIC, CBC, LIPASE ####[facility] [place] [id number] [facility] GFR/1.73 sq M.predicted MDRD (S/P/Bld) [Vol rate/Area] 16.368 mL/min/{1.73_m2} Normal [facility] Comment on above: Performed By: #### B MP, HEPATIC, CBC, LIPASE ####[place] [address] [place] [id number] [facility] Glucose [Mass/Vol] 132 mg/dL High 70-100 [facility] Comment on above: Result Comment: [facility] Glucose Reference Range is dependent on time and content of last meal. Glucose of more than 200 mg/dL in a nonstressed, ambulatory subject supports the diagnosis of Diabetes Mellitus. ADA recommended reference range Performed By: #### B MP, HEPATIC, CBC, LIPASE ####[place] [address] [place] [id number] [facility] Potassium [Moles/Vol] 4.6 mmol/L Normal 3.5-5.1 [facility] Comment on above: Performed By: #### B MP, HEPATIC, CBC, LIPASE ####[place] [address] [place] [id number] [facility] Sodium [Moles/Vol] 139 mmol/L Normal 136-145 [facility] Comment on above: Performed By: #### B MP, HEPATIC, CBC, LIPASE ####[place] [id number] [facility] Urea nitrogen [Mass/Vol] 30 mg/dL High 7-25 [facility] Comment on above: Performed By: #### B MP, HEPATIC, CBC, LIPASE ####[place] [id number] [place] Basophils Auto (Bld) [#/Vol] Ordered By: Destiny Irwin on 08-31-2023 Basophils (Bld) [#/Vol] 0.1 10*3/uL 0.0-0.2 [facility] Basophils/100 WBC Auto (Bld) Ordered By: Destiny Irwin on 08-31-2023 Basophils/100 WBC (Bld) 0.6 % . [facility] Bilirubin Test strip Ql (U)O rdered By: Destiny Irwin on 08-31-2023 Bilirubin Ql (U) Negative Negative [facility] Bilirubin.direct [Mass/volum e] in Serum or PlasmaOrdered By: Destiny Irwin on 08-31-2023 Bilirubin.direct [Mass/Vol] 0.10 mg/dL 0.03-0.18 [facility] Bilirubin.total [Mass/volume ] in Serum or PlasmaOrdered By: Destiny Irwin on 08-31-2023 Bilirubin [Mass/Vol] 0.5 mg/dL 0.3-1.0 [facility] Calcium [Mass/volume] in Ser um or PlasmaOrdered By: Destiny Irwin on 08-31-2023 Calcium [Mass/Vol] 9.5 mg/dL 8.6-10.3 [facility] Carbon dioxide, total [Moles /volume] in Serum or PlasmaOrdered By: Destiny Irwin on 08-31-2023 CO2 [Moles/Vol] 23.7 mmol/L 21.0-31.0 [facility] Chloride [Moles/volume] in S shelley or PlasmaOrdered By: Destiny Irwin on 08-31-2023 Chloride [Moles/Vol] 103 mmol/L 98-107 [facility] Color Auto (U)Ordered By: Ashley Irwin on 08-31-2023 Color (U) Yellow Yellow [facility] Complete Blood Count Auto Di ffon 08-31-2023 Basophils (Bld) [#/Vol] 0.1 10*3/uL Normal 0.0-0.2 [facility] Comment on above: Result Comment: PERF ORMED BY: [facility] [address] [place] [address] PATHOLOGIST POND TENDER BARBARA MUNOZ M.D. Performed By: #### B MP, HEPATIC, CBC, LIPASE ####[facility] [address] [place] [id number] [facility] Basophils/100 WBC (Bld) 0.6 % Normal . [facility] Comment on above: Performed By: #### B MP, HEPATIC, CBC, LIPASE ####[address] Eosinophils (Bld) [#/Vol] 0.0 10*3/uL Normal 0.0-0.45 [facility] Comment on above: Performed By: #### B MP, HEPATIC, CBC, LIPASE ####[address] Eosinophils/100 WBC (Bld) 0.5 % Normal . [facility] Comment on above: Performed By: #### B MP, HEPATIC, CBC, LIPASE ####[address] Erythrocyte distribution width (RBC) [Ratio] 13.7 % Normal 11.9-15.3 [facility] Comment on above: Performed By: #### B MP, HEPATIC, CBC, LIPASE ####[address] Hematocrit (Bld) [Volume fraction] 40.5 % Normal 34.0-46.4 [facility] Comment on above: Performed By: #### B MP, HEPATIC, CBC, LIPASE ####[address] Hemoglobin (Bld) [Mass/Vol] 13.3 g/dL Normal 11.8-15.4 [facility] Comment on above: Performed By: #### B MP, HEPATIC, CBC, LIPASE ####[address] Lymphocytes (Bld) [#/Vol] 1.9 10*3/uL Normal 1.00-4.8 [facility] Comment on above: Performed By: #### B MP, HEPATIC, CBC, LIPASE ####[address] Lymphocytes/100 WBC (Bld) 20.5 % Normal . [facility] Comment on above: Performed By: #### B MP, HEPATIC, CBC, LIPASE ####[address] MCH (RBC) [Entitic mass] 31.5 pg Normal 24.7-34.3 [facility] Comment on above: Performed By: #### B MP, HEPATIC, CBC, LIPASE ####[address] MCV (RBC) [Entitic vol] 95.4 fL Normal 80-100 [facility] Comment on above: Performed By: #### B MP, HEPATIC, CBC, LIPASE ####[address] Mean Corpuscular HGB Conc 33.0 g/dL Normal 32.0-35.0 [facility] Comment on above: Performed By: #### B MP, HEPATIC, CBC, LIPASE ####[address] Monocytes (Bld) [#/Vol] 1.0 10*3/uL High 0.0-0.8 [facility] Comment on above: Performed By: #### B MP, HEPATIC, CBC, LIPASE ####[address] Monocytes/100 WBC (Bld) 18.57 % Normal 0.00-20.00 [facility] Comment on above: Performed By: #### B MP, HEPATIC, CBC, LIPASE ####[address] Monocytes/100 WBC (Bld) 10.6 % Normal . [facility] Comment on above: Performed By: #### B MP, HEPATIC, CBC, LIPASE ####[address] Neutrophils (Bld) [#/Vol] 6.4 10*3/uL Normal 1.8-7.7 [facility] Comment on above: Performed By: #### B MP, HEPATIC, CBC, LIPASE ####[address] Neutrophils/100 WBC (Bld) 67.8 % Normal . [facility] Comment on above: Performed By: #### B MP, HEPATIC, CBC, LIPASE ####[place] [address] NRBC% 0.0 /100{WBC} Normal 0-0.5 [facility] Comment on above: Performed By: #### B MP, HEPATIC, CBC, LIPASE ####[address] Platelet mean volume (Bld) [Entitic vol] 8.4 fL Normal 6.3-10.7 [facility] Comment on above: Performed By: #### B MP, HEPATIC, CBC, LIPASE ####[address] Platelets (Bld) [#/Vol] 249 10*3/uL Normal 150-450 [facility] Comment on above: Performed By: #### B MP, HEPATIC, CBC, LIPASE ####[address] RBC (Bld) [#/Vol] 4.24 10*6/uL Normal 3.60-5.00 [facility] Comment on above: Performed By: #### B MP, HEPATIC, CBC, LIPASE ####[address] WBC (Bld) [#/Vol] 9.4 10*3/uL Normal 3.8-11.6 [facility] Comment on above: Performed By: #### B MP, HEPATIC, CBC, LIPASE ####[address] Creatinine [Mass/volume] in Serum or PlasmaOrdered By: Destiny Irwin on 08-31-2023 Creatinine [Mass/Vol] 2.74 mg/dL 0.60-1.20 [facility] D-Dimer High Sensitivityon 1 11-01-2022 D-Dimer High Sensitivity < 200 Normal 0-243 [facility] Comment on above: Result Comment: The reference [...] coagulation studies. Please contact the laboratory at [phone] for redraw instructions. PERFORMED BY: [place] [address] PATHOLOGIST POND TENDER BARBARA MUNOZ M.D. Performed By: #### D DIMER #### [place] [id number] [facility] ECG 12 lead ECGon 08-31-2023 ECG 12 lead ECG [facility] [place] [address] [place] [address] Electrocardiograph Report Signed Patient: Jesús Nolan MR#: [id number] 36 : 1935 Acct:[id number] Age/Sex: 88 / F ADM Date: 08/31/23 Loc: Room: [address] [place] [address] Type: ADM IN Attending Dr: Riky Bundy [...] anterior infarct Confirmed by Yuly Marx DO ([id number]) on 09/01/2023 6:18:58 AM Referred By: Electronically Signed By:Yuly Marx DO Transcribed By: MUS Signed By Yuly Marx DO [id number] Normal [facility] Eosinophils Auto (Bld) [#/Vo l]Ordered By: Destiny Irwin on 08-31-2023 Eosinophils (Bld) [#/Vol] 0.0 10*3/uL 0.0-0.45 [facility] Eosinophils/100 WBC Auto (Bl d)Ordered By: Destiny Irwin on 08-31-2023 Eosinophils/100 WBC (Bld) 0.5 % . [facility] Erythrocyte distribution wid th Auto (RBC) [Ratio]Ordered By: Destiny Irwin on 08-31-2023 Erythrocyte distribution width (RBC) [Ratio] 13.7 % 11.9-15.3 [facility] Fibrin D-dimer [Presence] in Platelet poor plasma by Latex agglutinationOrdered By: Destiny Irwin on 08-31-2023 Fibrin D-dimer LA Ql (PPP) < 200 ng/mL 0-243 [facility] Comment on above: The reference range for [...] coagulation studies. Please contact the laboratory at [phone] for redraw instructions. Globulin Calc (S) [Mass/Vol] Ordered By: Destiny Irwin on 08-31-2023 Globulin (S) [Mass/Vol] 3.3 g/dL [facility] Glucose [Mass/volume] in Ser um or PlasmaOrdered By: Destiny Irwin on 08-31-2023 Glucose [Mass/Vol] 132 mg/dL 70-100 [facility] Comment on above: ADA recommended refe rence rangeRandom Glucose Reference Range is dependent on time and content of last meal. Glucose of more than 200 mg/dL in a nonstressed, ambulatory subject supports the diagnosis of Diabetes Mellitus. Hematocrit Auto (Bld) [Volum e fraction]Ordered By: Destiny Irwin on 08-31-2023 Hematocrit (Bld) [Volume fraction] 40.5 % 34.0-46.4 [facility] Hemoglobin [Mass/volume] in BloodOrdered By: Destiny Irwin on 08-31-2023 Hemoglobin (Bld) [Mass/Vol] 13.3 g/dL 11.8-15.4 [facility] Hepatic Panelon 08-31-2023 Albumin [Mass/Vol] 4.7 g/dL Normal 3.5-5.7 [facility] Comment on above: Performed By: #### B MP, HEPATIC, CBC, LIPASE ####[address] Albumin/Globulin [Mass ratio] 1.4 {ratio} Normal [facility] Comment on above: Performed By: #### B MP, HEPATIC, CBC, LIPASE ####[place] [id number] [facility] ALP [Catalytic activity/Vol] 101 U/L Normal 34-104 [facility] Comment on above: Performed By: #### B MP, HEPATIC, CBC, LIPASE ####[place] [id number] [facility] ALT [Catalytic activity/Vol] 29 U/L Normal 7-52 [facility] Comment on above: Performed By: #### B MP, HEPATIC, CBC, LIPASE ####[address] [address] [facility] AST [Catalytic activity/Vol] 29 U/L Normal 13-39 [facility] Comment on above: Performed By: #### B MP, HEPATIC, CBC, LIPASE ####[place] [id number] [facility] Bilirubin [Mass/Vol] 0.5 mg/dL Normal 0.3-1.0 [facility] Comment on above: Performed By: #### B MP, HEPATIC, CBC, LIPASE ####[place] [id number] [facility] Bilirubin,Indirect 0.4 mg/dL Normal [facility] Comment on above: Performed By: #### B MP, HEPATIC, CBC, LIPASE ####[place] [address] Bilirubin.indirect [Mass/Vol] 0.10 mg/dL Normal 0.03-0.18 [facility] Comment on above: Performed By: #### B MP, HEPATIC, CBC, LIPASE ####[address] Globulin (S) [Mass/Vol] 3.3 g/dL Normal [facility] Comment on above: Performed By: #### B MP, HEPATIC, CBC, LIPASE ####[address] Protein [Mass/Vol] 8.0 g/dL Normal 6.4-8.9 [facility] Comment on above: Performed By: #### B MP, HEPATIC, CBC, LIPASE ####[address] Ketones Auto test strip (U) [Mass/Vol]Ordered By: Destiny Irwin on 08-31-2023 Ketones (U) [Mass/Vol] Negative Negative [facility] Leukocytes [#/volume] correc tavia for nucleated erythrocytes in Blood by Automated counOrdered By: Destiny Irwin on 08-31-2023 WBC corrected for nucl RBC Auto (Bld) [#/Vol] 9.4 10*3/uL 3.8-11.6 [facility] Lipaseon 08-31-2023 Lipase [Catalytic activity/Vol] 33.0 U/L Normal 11.0-82.0 [facility] Comment on above: Result Comment: PERF ORMED BY: [facility] [address] [place] [id number] PATHOLOGIST POND TENDER BARBARA MUNOZ M.D. Performed By: #### B MP, HEPATIC, CBC, LIPASE ####[address] Lipase [Enzymatic activity/v olume] in Serum or PlasmaOrdered By: Destiny Irwin on 08-31-2023 Lipase [Catalytic activity/Vol] 33.0 U/L 11.0-82.0 [facility] Lymphocytes Auto (Bld) [#/Vo l]Ordered By: Destiny Irwin on 08-31-2023 Lymphocytes (Bld) [#/Vol] 1.9 10*3/uL 1.00-4.8 [facility] Lymphocytes/100 WBC Auto (Bl d)Ordered By: Destiny Irwin on 08-31-2023 Lymphocytes/100 WBC (Bld) 20.5 % . [facility] MCH Auto (RBC) [Entitic mass ]Ordered By: Destiny Irwin on 08-31-2023 MCH (RBC) [Entitic mass] 31.5 pg 24.7-34.3 [facility] MCHC Auto (RBC) [Mass/Vol]Or dered By: Destiny Irwin on 08-31-2023 MCHC (RBC) [Mass/Vol] 33.0 g/dL 32.0-35.0 [facility] MCV Auto (RBC) [Entitic vol] Ordered By: Destiny Irwin on 08-31-2023 MCV (RBC) [Entitic vol] 95.4 fL 80-100 [facility] Monocyte distribution width [Entitic volume] in Blood by AutomatedOrdered By: Destiny Irwin on 08-31-2023 Monocyte distribution width Auto (Bld) [Entitic vol] 18.57 % 0.00-20.00 [facility] Monocytes Auto (Bld) [#/Vol] Ordered By: Destiny Irwin on 08-31-2023 Monocytes (Bld) [#/Vol] 1.0 10*3/uL 0.0-0.8 [facility] Monocytes/100 WBC Auto (Bld) Ordered By: Destiny Irwin on 08-31-2023 Monocytes/100 WBC (Bld) 10.6 % . [facility] Neutrophils Auto (Bld) [#/Vo l]Ordered By: Destiny Irwin on 08-31-2023 Neutrophils (Bld) [#/Vol] 6.4 10*3/uL 1.8-7.7 [facility] Neutrophils/100 WBC Auto (Bl d)Ordered By: Destiny Irwin on 08-31-2023 Neutrophils/100 WBC (Bld) 67.8 % . [facility] Nitrite Test strip Ql (U)Ord ered By: Destiny Irwin on 08-31-2023 Nitrite Ql (U) Negative Negative [facility] No Panel InformationOrdered By: Destiny Irwin on 08-31-2023 Estimated GFR (CKD-EPI) 16.368 mL/Min [facility] Creatinine Clearance (Chem 12.25 [facility] Nucleated erythrocytes [Pres ence] in Blood by Automated countOrdered By: Destiny Irwin on 08-31-2023 Nucleated RBC Auto Ql (Bld) 0.0 /100{WBC} 0-0.5 [facility] Platelet mean volume Auto (B ld) [Entitic vol]Ordered By: Destiny Irwin on 08-31-2023 Platelet mean volume (Bld) [Entitic vol] 8.4 fL 6.3-10.7 [facility] Platelets Auto (Bld) [#/Vol] Ordered By: Destiny Irwin on 08-31-2023 Platelets (Bld) [#/Vol] 249 10*3/uL 150-450 [facility] Potassium [Moles/volume] in Serum or PlasmaOrdered By: Destiny Irwin on 08-31-2023 Potassium [Moles/Vol] 4.6 mmol/L 3.5-5.1 [facility] Protein Auto test strip (U) [Mass/Vol]Ordered By: Destiny Irwin on 08-31-2023 Protein (U) [Mass/Vol] 30 mg/dL Negative [facility] Protein [Mass/volume] in Ser um or PlasmaOrdered By: Destiny Irwin on 08-31-2023 Protein [Mass/Vol] 8.0 g/dL 6.4-8.9 [facility] RBC Auto (Bld) [#/Vol]Ordere d By: Destiny Irwin on 08-31-2023 RBC (Bld) [#/Vol] 4.24 10*6/uL 3.60-5.00 [facility] Serum or plasma albumin/glob ulin mass ratioOrdered By: Destiny Irwin on 08-31-2023 Albumin/Globulin [Mass ratio] 1.4 {ratio} [facility] Serum or plasma anion gap de terminationOrdered By: Destiny Irwin on 08-31-2023 Anion gap [Moles/Vol] 16.9 mmol/L 6.0-15.0 [facility] Serum or plasma non-glucuron idated bilirubin measurement (mass/volume)Ordered By: Destiny Irwin on 08-31-2023 Bilirubin.indirect [Mass/Vol] 0.4 mg/dL [facility] Sodium [Moles/volume] in Ser um or PlasmaOrdered By: Destiny Irwin on 08-31-2023 Sodium [Moles/Vol] 139 mmol/L 136-145 [facility] Specific gravity Auto test s trip (U) [Rel density]Ordered By: Destiny Irwin on 08-31-2023 Specific gravity (U) [Rel density] 1.016 1.001-1.030 [facility] Squamous epithelial cells de tection in urine sediment by light microscopyOrdered By: Destiny Irwin on 08-31-2023 Epithelial cells.squamous LM Ql (Urine sed) 3-4 [HPF] 0-2 [facility] Troponin I High Sensitivityo n 08-31-2023 Troponin I High Sensitivity 18.1 pg/mL High 0.0-15.0 [facility] Comment on above: Result Comment: PERF ORMED BY: [facility] [address] [facility] [place] [id number] PATHOLOGIST POND TENDER BARBARA MUNOZ M.D. Performed By: #### H S TROP ####[facility] [id number] [facility] Troponin I.cardiac [Mass/vol ume] in Serum or Plasma by Detection limit <= 0.01 ng/Ordered By: Destiny Irwin on 08-31-2023 Troponin I.cardiac DL <= 0.01 ng/mL [Mass/Vol] 18.1 pg/mL 0.0-15.0 [facility] Urea nitrogen [Mass/volume] in Serum or PlasmaOrdered By: Destiny Irwin on 08-31-2023 Urea nitrogen [Mass/Vol] 30 mg/dL 7-25 [facility] Urine bacteria detection by automated methodOrdered By: Destiny Irwin on 08-31-2023 Bacteria Auto Ql (U) None seen None Seen [facility] Urine clarity by refractomet ry automatedOrdered By: Destiny Irwin on 08-31-2023 Clarity Refractometry automated (U) Cloudy Clear [facility] Urine glucose measurement by automated test strip (mass/volume)Ordered By: Destiny Irwin on 08-31-2023 Glucose Auto test strip (U) [Mass/Vol] Normal mg/dL Normal [facility] Urine hemoglobin detection b y automated test stripOrdered By: Destiny Irwin on 08-31-2023 Hemoglobin Auto test strip Ql (U) Trace Negative [facility] Urine leukocyte esterase det ection by automated test stripOrdered By: Destiny Irwin on 08-31-2023 Leukocyte esterase Auto test strip Ql (U) 4+ Negative [facility] Urobilinogen Auto test strip (U) [Mass/Vol]Ordered By: Destiny Irwin on 08-31-2023 Urobilinogen (U) [Mass/Vol] Normal mg/dL Normal [facility] WBC Auto (Bld) [#/Vol]Ordere d By: Destiny Irwin on 08-31-2023 WBC (Bld) [#/Vol] 9.4 10*3/uL 3.8-11.6 [facility] pH Auto test strip (U)Ordere d By: Destiny Irwin on 08-31-2023 pH (U) 6.0 [pH] 5.0-9.0 [facility] Insurance Correspondence Off iceon 08-27-2023 Insurance Correspondence Office [id number] 0TIFF Normal [facility] CBC AUTO DIFFon 04-12-2021 BASO # 0.0 103/ul Normal 0.0-0.1 [facility] Comment on above: Performed By: #### C BC #### [facility] [address] [address] [place] Basophils/100 WBC (Bld) 0.3 % Normal 0.2-2.0 [facility] Comment on above: Performed By: #### C BC #### [facility] [address] [address] [place] EO # 0.1 103/ul Normal 0.0-0.7 [facility] Comment on above: Performed By: #### C BC #### [facility] [address] [place] [address] [place] Eosinophils/100 WBC (Bld) 2.1 % Normal 0.9-7.0 [facility] Comment on above: Performed By: #### C BC #### [facility] [address] [address] [place] Erythrocyte distribution width (RBC) [Ratio] 13.7 % Normal 11.0-15.0 [facility] Comment on above: Performed By: #### C BC #### [facility] [address] [place] [address] [place] Hematocrit (Bld) [Volume fraction] 39.6 % Normal 36.0-48.0 [facility] Comment on above: Performed By: #### C BC #### [facility] [address] [place] [address] [place] Isabel Hemoglobin (Bld) [Mass/Vol] 12.9 g/dL Normal 12.0-16.0 [facility] Comment on above: Performed By: #### C BC #### [facility] [address] [place] [address] [place] Isabel IG # 0.01 10e3/ul Normal 0.00-0.03 [facility] Comment on above: Performed By: #### C BC #### [facility] [address] [place] [address] [place] IG % 0.2 % Normal 0.0-0.5 [facility] Comment on above: Performed By: #### C BC #### [facility] [address] [place] [address] [place] Isabel LYMPH # 2.2 103/ul Normal 1.2-3.8 [facility] Comment on above: Performed By: #### C BC #### [facility] [address] [place] [address] [place] Lymphocytes/100 WBC (Bld) 35.3 % Normal 20.5-60.0 [facility] Comment on above: Performed By: #### C BC #### [facility] [address] [place], [place] [phone] [place] MANUAL DIFF REQ NO Normal [facility] Comment on above: Performed By: #### C BC #### [facility] [address] [place], [place] [id number] Chelseyfeliberto Hall MCH (RBC) [Entitic mass] 31.1 pg Normal 26.7-34.0 [facility] Comment on above: Performed By: #### C BC #### [facility] [address] [place] [address] [place] MCHC (RBC) [Mass/Vol] 32.6 g/dL Normal 29.9-35.2 [facility] Comment on above: Performed By: #### C BC #### [facility] [address] [place] [address] [place]fel[place] Hall MCV (RBC) [Entitic vol] 95.4 fL Normal 81.0-99.0 [facility] Comment on above: Performed By: #### C BC #### [facility] [address] [place] [address] [place] MONO # 0.7 103/ul Normal 0.3-0.8 [facility] Comment on above: Performed By: #### C BC #### [facility] [address] [place] [address] [place] Monocytes/100 WBC (Bld) 12.1 % Critically high 1.7-12. 0 [facility] Comment on above: Performed By: #### C BC #### [facility] [address] [place] [address] [place] Isabel NEUT # 3.1 103/ul Normal 1.4-6.5 [facility] Comment on above: Performed By: #### C BC #### [facility] [address] [place] [address] [place] Isabel Neutrophils/100 WBC (Bld) 50.0 % Normal 43.0-75.0 [facility] Comment on above: Performed By: #### C BC #### [facility] [address] [place], [place] [address] [place] Isabel Platelet mean volume (Bld) [Entitic vol] 10.2 fL Normal 9.5-13.5 [facility] Comment on above: Performed By: #### C BC #### [facility] [address] [place], [place] [address] [place] Isabel PLT 212 103/ul Normal 150-450 [facility] Comment on above: Performed By: #### C BC #### [facility] [address] [place] [address] [place] Isabel RBC 4.15 106/ul Critically low 4.20-5.40 [facility] Comment on above: Performed By: #### C BC #### [facility] [address] [place] [address] [place] Isabel WBC 6.1 103/ul Normal 4.0-11.0 [facility] Comment on above: Performed By: #### C BC #### [facility] [address] [place], [place] [phone] [place] Isabel RENAL FUNCTION PANELon 04-12 Albumin [Mass/Vol] 3.4 g/dL Critically low 3.5-5.0 [facility] Comment on above: Performed By: #### R ENAL #### [facility] [address] [place], [place] [phone] [place] Isabel Calcium [Mass/Vol] 8.9 mg/dL Normal 8.4-10.2 [facility] Comment on above: Performed By: #### R ENAL #### [facility] [address] [place], [place] [phone] [place] Isabel Chloride [Moles/Vol] 106 mmol/L Normal 98-107 [facility] Comment on above: Performed By: #### R ENAL #### [facility] [address] [place], [place] [phone] [place] Isabel CO2 [Moles/Vol] 29.4 mmol/L Normal 22.0-30.0 [facility] Comment on above: Performed By: #### R ENAL #### [facility] [address] [address] [place] Isabel Creatinine [Mass/Vol] 1.49 mg/dL Critically high 0.52-1.04 [facility] Comment on above: Performed By: #### R ENAL #### [facility] [address] [id number] [place] Isabel EGFR-AF SWEDISH 41 mL/min/1.73m2 Critically low >=60 [facility] Comment on above: Performed By: #### R ENAL #### [facility] [address] [address] [place] Isabel EGFR-NON AF SWEDISH 33 mL/min/1.73m2 Critically low >=60 [facility] Comment on above: Performed By: #### R ENAL #### [facility] [address] [place] [address] [place] Isabel Glucose [Mass/Vol] 138 mg/dL Critically high 74-106 T [facility] Comment on above: Performed By: #### R ENAL #### [facility] [address] [address] [place] Isabel Phosphate [Mass/Vol] 4.3 mg/dL Normal 2.5-4.5 [facility] Comment on above: Performed By: #### R ENAL #### [facility] [address] [address] [place] Isabel Potassium [Moles/Vol] 3.2 mmol/L Critically low 3.4-5.0 [facility] Comment on above: Performed By: #### R ENAL #### [facility] [address] [address] [place] Sodium [Moles/Vol] 144 mmol/L Normal 137-145 [facility] Comment on above: Performed By: #### R ENAL #### [facility] [address] [id number] [place] Isabel Urea nitrogen [Mass/Vol] 28.0 mg/dL Critically high 7.0-17 .0 [facility] Comment on above: Performed By: #### R ENAL #### [facility] [address] [place] [address] [place] Isabel UA RANDOMon 04-12-2021 Bilirubin Ql (U) Negative Normal NEGATIVE [facility] Comment on above: Performed By: #### U A #### [facility] [address] [place] [address] [place] Isabel Clarity (U) CLOUDY Abnormal CLEAR [facility] Comment on above: Performed By: #### U A #### [facility] [address] [place] [address] Chel[place] Isabel Color (U) LT. YELLOW Normal YELLOW [facility] Comment on above: Performed By: #### U A #### [facility] [address] [place] [address] [place] Isabel Glucose Ql (U) Negative Normal NEGATIVE [facility] Comment on above: Performed By: #### U A #### [facility] [address] [place] [address] Chel[place] Isabel Hemoglobin Ql (U) LARGE Abnormal NEGATIVE [facility] Comment on above: Performed By: #### U A #### [facility] [address] [place] [address] [place] Isabel Ketones Ql (U) Negative Normal NEGATIVE [facility] Comment on above: Performed By: #### U A #### [facility] [address] [place] [address] [place] Isabel LEUKOCYTES LARGE Abnormal NEGATIVE [facility] Comment on above: Performed By: #### U A #### [facility] [address] [place] [address] Chel[place] Isabel Nitrite Ql (U) Negative Normal NEGATIVE [facility] Comment on above: Performed By: #### U A #### [facility] [address] [place] [address] Chel[place] Isabel pH (U) 6.5 [pH] Normal 5-9 [facility] Comment on above: Performed By: #### U A #### [facility] [address] [place] [address] Chelsey Isabel SPEC GRAVITY 1.015 Normal 1.005-<=1.0 25 [facility] Comment on above: Performed By: #### U A #### [facility] [address] [place], [place] [address] [place] UA PROTEIN 30 mg/dl Abnormal NEGATIVE/ TRACE [facility] Comment on above: Performed By: #### U A #### [facility] [address] [place], [place] [address] [place] Urobilinogen Qn (U) 0.2 {Gerard'U}/dL Normal 0.2 - 1. 0 [facility] Comment on above: Performed By: #### U A #### [facility] [address] [place], [place] [address] [place] C-Reactive Proteinon 021 CRP [Mass/Vol] 7.9 mg/L High 0.0-5.0 [facility] Comment on above: Performed By: #### C DP #### [address] [place] [address] Ski Tow Operator: Loi Irene MD #### CRP #### [place] [place] [address] [employer] Tow Operator: Dg Aparicio MD CRP [Mass/Vol] 7.9 mg/L High 0.0 - 5.0 mg/L [facility] [employer] Phone: Interpretation and review of laboratory results Abnormal [facility] [employer] Phone: PTH, Intacton 12-06-2020 PTH, Intact 39.87 pg/mL Normal 15.0-65.0 [facility] Comment on above: Result Comment: SAMP LES FROM PATIENTS ROUTINELY RECEIVING HIGH DOSE BIOTIN THERAPY MAY SHOW FALSELY DEPRESSED RESULTS. ADDITIONAL INFORMATION MAY BE REQUIRED FOR DIAGNOSIS. Performed By: #### ARMANDO Warren URI #### [facility] [address] [place] [address] [employer] Operator: Loi Irene MD #### PTHNCA #### [facility] [address] [place] [address] [employer] Operator: Dg Aparicio MD Pth Intact 39.87 pg/mL 15.0 - 65.0 pg/mL [employer] Phone: Comment on above: SAMPLES FROM PATIENT S ROUTINELY RECEIVING HIGH DOSE BIOTIN THERAPY MAY SHOW FALSELY DEPRESSED RESULTS. ADDITIONAL INFORMATION MAY BE REQUIRED FOR DIAGNOSIS. CBC Auto Differentialon 11-25 Basophils (Bld) [#/Vol] 10*3/uL M [employer] Phone: Basophils/100 WBC (Bld) 0 % 0 - 2 % [employer] Phone: Differential Type NOT REPORTED [employer] Phone: Eosinophils (Bld) [#/Vol] 0.16 10*3/uL [employer] Phone: Eosinophils/100 WBC (Bld) 3 % 1 - 4 % [employer] Phone: Erythrocyte distribution width (RBC) [Ratio] 15.3 % High 11.8 - 14.4 % [employer] Phone: Hematocrit (Bld) [Volume fraction] 38.3 % 36.3 - 47.1 % [employer] Phone: Hemoglobin (Bld) [Mass/Vol] 11.9 g/dL 11.9 - 15.1 g/dL [employer] Phone: Immature granulocytes (Bld) [#/Vol] 10*3/uL [employer] Phone: Immature granulocytes (Bld) [#/Vol] 0 % 0 [employer] Phone: Interpretation and review of laboratory results Abnormal [employer] Phone: Lymphocytes (Bld) [#/Vol] 1.68 10*3/uL [employer] Phone: Lymphocytes/100 WBC (Bld) 32 % 24 - 43 % [employer] Phone: MCH (RBC) [Entitic mass] 31.2 pg 25. 2 - 33.5 pg [employer] Phone: MCHC (RBC) [Mass/Vol] 31.1 g/dL 28.4 - 34.8 g/dL [employer] Phone: MCV (RBC) [Entitic vol] 100.3 fL 82.6 - 102.9 fL [employer] Phone: Monocytes (Bld) [#/Vol] 0.67 10*3/uL [employer] Phone: Monocytes/100 WBC (Bld) 13 % High 3 - 12 % [facility] [employer] [facility] Phone: Platelet mean volume (Bld) [Entitic vol] 10.2 fL 8.1 - 13.5 fL [employer] Phone: Platelets (Bld) [#/Vol] 238 10*3/uL [employer] Phone: Platelets (Bld) [#/Vol] NOT REPORTED [employer] Phone: RBC (Bld) [#/Vol] 3.82 10*6/uL Low 3.95 - 5.1 1 m/uL [employer] Phone: RBC morphology finding Nom (Bld) NOT REPORTED [employer] Phone: Segmented neutrophils/100 WBC (Bld) 52 % 36 - 65 % [employer] Phone: Segs Absolute 2.75 [employer] Phone: WBC (Bld) [#/Vol] 5.3 10*3/uL [employer] Phone: WBC (Bld) [#/Vol] 0.0 10*3/uL 0.0 per 10 0 WBC [facility] [employer] Phone: WBC Morphology NOT REPORTED [facility] [employer] Phone: CBC with Diffon 12-05-2020 Abs. Basophil <0.03 Normal 0.00-0.20 [facility] Comment on above: Performed By: #### C DP #### [facility] [address] [place] [address] [place] [address] [employer] Operator: Loi Irene MD #### CRP #### [address] [address] [employer] Operator: Dg Aparicio MD Abs.Imm.Granulocyte <0.03 Normal 0.00-0.30 [facility] Comment on above: Performed By: #### C DP #### [address] [place] [address] [employer] Tow Operator: Loi Irene MD #### CRP #### [address] [address] [employer] Tow Operator: Dg Aparicio MD Abs.Neutrophil (Seg) 2.75 k/uL Normal 1.50-8.10 [facility] Comment on above: Performed By: #### C DP #### [address] [place] [phone] [employer] Operator: Loi Irene MD #### CRP #### [address] [address] [employer] Operator: Dg Aparicio MD Basophils/100 WBC (Bld) 0 % Normal 0-2 M [facility] Comment on above: Performed By: #### C DP #### [address] [place], [place] [id number] [employer] Operator: Loi Irene MD #### CRP #### [address] [address] [employer] Tow Operator: Dg Aparicio MD Eosinophils (Bld) [#/Vol] 0.16 10*3/uL Normal 0.00-0.44 [facility] Comment on above: Performed By: #### C DP #### [facility] [address] [place] [address] Dr. [place], [place] [id number] [employer] Operator: Loi Irene MD #### CRP #### [address] [id number] [employer] Operator: Dg Aparicio MD Eosinophils/100 WBC (Bld) 3 % Normal 1-4 [facility] Comment on above: Performed By: #### C DP #### [address] [place] [phone] [employer] Operator: Loi Irene MD #### CRP #### [address] [address] [employer] Operator: Dg Aparicio MD Erythrocyte distribution width (RBC) [Ratio] 15.3 % High 11.8-14.4 [facility] Comment on above: Performed By: #### C DP #### [address] [place] [phone] [employer] Operator: Loi Irene MD #### CRP #### [address] [address] [employer] Operator: Dg Aparicio MD Hematocrit (Bld) [Volume fraction] 38.3 % Normal 36.3-47.1 [facility] Comment on above: Performed By: #### C DP #### [address] [place] [phone] [employer] Operator: Loi Irene MD #### CRP #### [address] [address] Ski Tow Operator: Dg Aparicio MD Hemoglobin (Bld) [Mass/Vol] 11.9 g/dL Normal 11.9-15.1 [facility] Comment on above: Performed By: #### C DP #### [facility] [address] [place], [place] [id number] [employer] Operator: Loi Irene MD #### CRP #### [address] [id number] [employer] Operator: Dg Aparicio MD Immature granulocytes/100 WBC (Bld) 0 % Normal 0 [facility] Comment on above: Performed By: #### C DP #### [facility] [address] [place] [phone] [employer] Operator: Loi Irene MD #### CRP #### [address] [id number] Ski [employer] Operator: Dg Aparicio MD Lymphocytes (Bld) [#/Vol] 1.68 10*3/uL Normal 1.10-3.70 [facility] Comment on above: Performed By: #### C DP #### [facility] [address] [place] [phone] [employer] Operator: Loi Irene MD #### CRP #### [address] [address] [employer] Tow Operator: Dg Aparicio MD Lymphocytes/100 WBC (Bld) 32 % Normal 24-43 [facility] Comment on above: Performed By: #### C DP #### [facility] [address] [place] [phone] [employer] Operator: Loi Irene MD #### CRP #### [address] [address] [employer] Tow Operator: Dg Aparicio MD MCH (RBC) [Entitic mass] 31.2 pg Normal 25.2-33.5 [facility] Comment on above: Performed By: #### C DP #### [address] [place], [place] [phone] [employer] Operator: Loi Irene MD #### CRP #### [address] [phone] [employer] Operator: Dg Aparicio MD MCHC (RBC) [Mass/Vol] 31.1 g/dL Normal 28.4-34.8 [facility] Comment on above: Performed By: #### C DP #### [address] [place] [phone] [employer] Operator: Loi Irene MD #### CRP #### [place] [id number] Ski Tow Operator: Dg Aparicio MD MCV (RBC) [Entitic vol] 100.3 fL Normal 82.6-102.9 [facility] Comment on above: Performed By: #### C DP #### [address] [place] [phone] [employer] Operator: Loi Irene MD #### CRP #### [place] [address] Ski Tow Operator: Dg Aparicio MD Monocytes (Bld) [#/Vol] 0.67 10*3/uL Normal 0.10-1.20 [facility] Comment on above: Performed By: #### C DP #### [address] [place] [phone] [employer] Operator: Loi Irene MD #### CRP #### [place] [address] Ski Tow Operator: Dg Aparicio MD Monocytes/100 WBC (Bld) 13 % High 3-12 [facility] Comment on above: Performed By: #### C DP #### [address] [place] [phone] [employer] Operator: Loi Irene MD #### CRP #### [address] [address] Ski Tow Operator: Dg Aparicio MD Neutrophil (Seg) 52 % Normal 36-65 [facility] Comment on above: Performed By: #### C DP #### [facility] [address] [place], [place] [address] [employer] Operator: Loi Irene MD #### CRP #### [address] [address] Ski Tow Operator: Dg Aparicio MD NRBC Automated 0.0 per 100 WBC Normal 0.0 [facility] Comment on above: Performed By: #### C DP #### [facility] [address] [place], [place] [phone] [employer] Operator: Loi Irene MD #### CRP #### [address] [address] Ski Tow Operator: Dg Aparicio MD Platelet mean volume (Bld) [Entitic vol] 10.2 fL Normal 8.1-13.5 [facility] Comment on above: Performed By: #### C DP #### [facility] [address] [place] [address] Dr. [place], [place] [phone] [employer] Operator: Loi Irene MD #### CRP #### [address] [address] [employer] Tow Operator: Dg Aparicio MD Platelets (Bld) [#/Vol] 238 10*3/uL Normal 138-453 [facility] Comment on above: Performed By: #### C DP #### [facility] [address] [place], [place] [phone] [employer] Operator: Loi Irene MD #### CRP #### [address] [address] [employer] Tow Operator: Dg Aparicio MD RBC (Bld) [#/Vol] 3.82 10*6/uL Low 3.95-5.11 [facility] Comment on above: Performed By: #### C DP #### [facility] [address] [place] [address] [place] [address] [employer] Operator: Loi Irene MD #### CRP #### [address] [address] [employer] Operator: Dg Aparicio MD WBC (Bld) [#/Vol] 5.3 10*3/uL Normal 3.5-11.3 [facility] Comment on above: Performed By: #### C DP #### [address] [place] [phone] [employer] Operator: Loi Irene MD #### CRP #### [address] [address] [employer] Tow Operator: Dg Aparicio MD Auto Diff Performed NOT REPORTED Normal [facility] Comment on above: Performed By: #### C DP #### [address] [place] [phone] [employer] Operator: Loi Irene MD #### CRP #### [address] [address] [employer] Tow Operator: Dg Aparicio MD Platelet Estimate NOT REPORTED Normal [facility] Comment on above: Performed By: #### C DP #### [facility] [address] [place] [address] [place] [address] [employer] Operator: Loi Irene MD #### CRP #### [address] [address] [employer] Operator: Dg Aparicio MD RBC morphology finding Nom (Bld) NOT REPORTED Normal [facility] Comment on above: Performed By: #### C DP #### [address] [address] [place] [place], [place] [id number] [employer] Operator: Loi Irene MD #### CRP #### [facility] [address] [place], [place] [phone] Ski Tow Operator: Dg Aparicio MD WBC Morphology NOT REPORTED Normal [facility] Comment on above: Performed By: #### C DP #### [address] [place], [place] [phone] [employer] Operator: Loi Irene MD #### CRP #### [facility] [address] [place], [place] [phone] [employer] Operator: Dg Aparicio MD Magnesiumon 5 Magnesium [Mass/Vol] 2.2 mg/dL Normal 1.6-2.6 [facility] Comment on above: Performed By: #### M ARMANDO Padgett URI #### [address] [place], [place] [id number] Ski [employer] Operator: Loi Irene MD #### PTHNCA #### [facility] [address] [place], [place] 1004908 Ski Tow Operator: gD Aparicio MD Magnesium [Mass/Vol] 2.2 mg/dL 1.6 - 2 .6 mg/dL [facility] [employer] Work Phone: Metabolic Panelon 12-05-2020 GFR/1.73 sq M predicted among non-blacks MDRD (S/P/Bld) [Vol rate/Area] [facility] Work Phone: Comment on above: Average GFR for 70 o r more years old: 75 mL/min/1.73sq m Chronic Kidney Disease: <60 mL/min/1.73sq m Kidney failure: <15 mL/min/1.73sq m eGFR calculated using average adult body mass. Additional eGFR calculator available at: http://www.Context Relevant/multiple_crcl_2012.htm Stage 1: Some kidney damage normal GFR Stage 2: Mild kidney damage GFR 60-89 Stage 3: Moderate kidney damage GFR 30-59 Stage 4: Severe kidney damage GFR 15-29 Stage 5: Severe kidney damage GFR <15 ESRD - chronic treatment by dialysis or transplant Otheron 12-05-2020 Interpretation and review of laboratory results Abnormal [facility] Work Phone: Renal Function Panelon 12-05 (cont.) Normal [facility] Comment on above: Result Comment: Aver age GFR for 70 or more years old: 75 mL/min/1.73sq m Chronic Kidney Disease: <60 mL/min/1.73sq m Kidney failure: <15 mL/min/1.73sq m eGFR calculated using average adult body mass. Additional eGFR calculator available at: http://www.Context Relevant/multiple_crcl_2012.htm Performed By: #### ARMANDO Warren URI #### [address] [place] [address] Ski Tow Operator: Loi Irene MD #### PTHNCA #### [address] [address] Ski Tow Operator: Dg Aparicio MD Albumin [Mass/Vol] 3.5 g/dL Normal 3.5-5.2 [facility] Comment on above: Performed By: #### ARMANDO Warren URI #### [address] [place] [address] Ski Tow Operator: Loi Irene MD #### PTHNCA #### [address] [address] Ski Tow Operator: Dg Aparicio MD Anion gap [Moles/Vol] 11 mmol/L Normal 9-17 [facility] Comment on above: Performed By: #### ARMANDO Warren, URI #### [address] [place] [address] Ski Tow Operator: Loi Irene MD #### PTHNCA #### [address] [place] [address] Ski Tow Operator: Dg Aparicio MD BUN/CRE Ratio 20 Normal 9-20 [facility] Comment on above: Performed By: #### ARMANDO Warren URI #### [facility] [address] [place], [place] [phone] Ski Tow Operator: Loi Irene MD #### PTHNCA #### [address] [address] Ski Tow Operator: Dg Aparicio MD Calcium [Mass/Vol] 9.3 mg/dL Normal 8.6-10.4 [facility] Comment on above: Performed By: #### ARMANDO Warren URI #### [facility] [address] [place], [place] [phone] Ski Tow Operator: Loi Irene MD #### PTHNCA #### [address] [address] Ski Tow Operator: Dg Aparicio MD Chloride [Moles/Vol] 103 mmol/L Normal 98-107 [facility] Comment on above: Performed By: #### ARMANDO Warren URI #### [facility] [address] [place], [place] [phone] Ski Tow Operator: Loi Irene MD #### PTHNCA #### [address] [address] Ski Tow Operator: Dg Aparicio MD CO2 [Moles/Vol] 29 mmol/L Normal 20-31 [facility] Comment on above: Performed By: #### ARMANDO Warren, URI #### [facility] [address] [place], [place] [phone] Ski Tow Operator: Loi Irene MD #### PTHNCA #### [address] [address] Ski Tow Operator: Dg Aparicio MD Creatinine [Mass/Vol] 1.43 mg/dL High 0.50-0.90 [facility] Comment on above: Performed By: #### ARMANDO Warren URI #### [facility] [address] [place], [place] [phone] Ski Tow Operator: Loi Irene MD #### PTHNCA #### [address] [address] Ski Tow Operator: Dg Aparicio MD GFR, Amer 42 mL/min Low >60 [facility] Comment on above: Performed By: #### ARMANDO Warren URI #### [facility] [address] [place] [address] [place], [place] [phone] Ski Tow Operator: Loi Irene MD #### PTHNCA #### [address] [address] Ski Tow Operator: Dg Aparicio MD GFR,non Amer 35 mL/min Low >60 [facility] Comment on above: Performed By: #### ARMANDO Warren URI #### [facility] [address] [place] [address] [place], [place] [phone] Ski Tow Operator: Loi Irene MD #### PTHNCA #### [address] [address] Ski Tow Operator: Dg Aparicio MD Glucose [Mass/Vol] 131 mg/dL High 70-99 [facility] Comment on above: Performed By: #### ARMANDO Warren URI #### [facility] [address] [place] [address] [place], [place] 7371583 [employer] Tow Operator: Loi Irene MD #### PTHNCA #### [address] [address] Ski Tow Operator: Dg Aparicio MD Phosphorus, Inorg. 3.6 mg/dL Normal 2.6-4.5 [facility] Comment on above: Performed By: #### ARMANDO Warren URI #### [address] [place], [place] 3985583 Ski Tow Operator: Loi Irene MD #### PTHNCA #### [address] [phone] Ski Tow Operator: Dg Aparicio MD Potassium [Moles/Vol] 3.4 mmol/L Low 3.7-5.3 [facility] Comment on above: Performed By: #### ARMANDO Warren URI #### [address] [place] [phone] Ski Tow Operator: Loi Irene MD #### PTHNCA #### [address] [id number] Ski Tow Operator: Dg Aparicio MD Sodium [Moles/Vol] 143 mmol/L Normal 135-144 [facility] Comment on above: Performed By: #### ARMANDO Warren URI #### [address] [place] [address] Ski Tow Operator: Loi Irene MD #### PTHNCA #### [address] [phone] Ski Tow Operator: Dg Aparicio MD Staging: Normal [facility] Comment on above: Result Comment: Stag e 1: Some kidney damage normal GFR Stage 2: Mild kidney damage GFR 60-89 Stage 3: Moderate kidney damage GFR 30-59 Stage 4: Severe kidney damage GFR 15-29 Stage 5: Severe kidney damage GFR <15 ESRD - chronic treatment by dialysis or transplant Performed By: #### ARMANDO Warren URI #### [address] [place], [place] 9579183 Ski Tow Operator: Loi Irene MD #### PTHNCA #### [facility] [address] [place], [place] [phone] Ski Tow Operator: Dg Aparicio MD Urea nitrogen [Mass/Vol] 29 mg/dL High 8-23 [facility] Comment on above: Performed By: #### ARMANDO Warren URI #### [facility] [address] [place] [address] Ski Tow Operator: Loi Irene MD #### PTHNCA #### [facility] [address] [place], [place] [phone] Ski Tow Operator: Dg Aparicio MD Albumin [Mass/Vol] 3.5 g/dL 3.5 - 5.2 g/dL [employer] Phone: Anion gap [Moles/Vol] 11 mmol/L 9 - 17 mmol/L [employer] Phone: Bun/Cre Ratio 20 [employer] Phone: Calcium [Mass/Vol] 9.3 mg/dL 8.6 - 10. 4 mg/dL [employer] Phone: Chloride [Moles/Vol] 103 mmol/L 98 - 10 7 mmol/L [employer] Phone: CO2 [Moles/Vol] 29 mmol/L 20 - 31 mmol/L [employer] Phone: Creatinine [Mass/Vol] 1.43 mg/dL High 0.50 - 0.90 mg/dL [employer] Phone: GFR 42 mL/min Low >60 [employer] Phone: GFR Non- 35 mL/min Low >60 [employer] Phone: Glucose [Mass/Vol] 131 mg/dL High 70 - 99 mg/dL [employer] Phone: Phosphate [Mass/Vol] 3.6 mg/dL 2.6 - 4 .5 mg/dL [facility] [employer] Phone: Potassium [Moles/Vol] 3.4 mmol/L Low 3.7 - 5.3 mmol/L [facility] [employer] Phone: Sodium [Moles/Vol] 143 mmol/L 135 - 144 mmol/L [facility] Phone: Urea nitrogen [Mass/Vol] 29 mg/dL High 8 - 23 mg/dL [facility] [employer] Phone: Uric Acidon 12-05-2020 Urate [Mass/Vol] 7.3 mg/dL High 2.4-5.7 [facility] Comment on above: Performed By: #### M G, RENP, URI #### [facility] [address] [place] [address] [place] [address] Ski Tow Operator: Loi Irene MD #### PTHNCA #### [facility] [place] [address] Ski Tow Operator: Dg Aparicio MD Urate [Mass/Vol] 7.3 mg/dL High 2.4 - 5.7 mg/dL [facility] [employer] Phone: C-Reactive Proteinon 021 CRP [Mass/Vol] 7.8 mg/L High 0.0-5.0 [facility] Comment on above: Performed By: #### C DP, SED #### [address] [place] [address] Ski Tow Operator: Loi Irene MD #### CRP #### [facility] [place] [address] Ski Tow Operator: Dg Aparicio MD CRP [Mass/Vol] 7.8 mg/L High 0 - 5 mg/L [facility] [employer] Phone: Interpretation and review of laboratory results Abnormal [employer] Phone: CBC Auto Differentialon 10-28 Basophils (Bld) [#/Vol] 10*3/uL [facility] [facility] Phone: Basophils/100 WBC (Bld) 0 % 0 - 2 % [facility] Phone: Differential Type NOT REPORTED [employer] Phone: Eosinophils (Bld) [#/Vol] 0.37 10*3/uL [employer] Phone: Eosinophils/100 WBC (Bld) 5 % High 1 - 4 % [employer] Phone: Erythrocyte distribution width (RBC) [Ratio] 17.7 % High 11.8 - 14.4 % [employer] Phone: Hematocrit (Bld) [Volume fraction] 36.9 % 36.3 - 47.1 % [employer] Phone: Hemoglobin (Bld) [Mass/Vol] 11.1 g/dL Low 11.9 - 15.1 g/dL [employer] Phone: Immature granulocytes (Bld) [#/Vol] 10*3/uL [employer] Phone: Immature granulocytes (Bld) [#/Vol] 0 % 0 [employer] Phone: Interpretation and review of laboratory results Abnormal [employer] Phone: Lymphocytes (Bld) [#/Vol] 1.74 10*3/uL [employer] Phone: Lymphocytes/100 WBC (Bld) 23 % Low 24 - 43 % [employer] Phone: MCH (RBC) [Entitic mass] 29.6 pg 25. 2 - 33.5 pg [employer] Phone: MCHC (RBC) [Mass/Vol] 30.1 g/dL 28.4 - 34.8 g/dL [employer] Phone: MCV (RBC) [Entitic vol] 98.4 fL 82.6 - 102.9 fL [employer] Phone: Monocytes (Bld) [#/Vol] 0.76 10*3/uL [employer] Phone: Monocytes/100 WBC (Bld) 10 % 3 - 12 % [facility] [facility] Phone: Platelet mean volume (Bld) [Entitic vol] 9.9 fL 8.1 - 13.5 fL [employer] Phone: Platelets (Bld) [#/Vol] NOT REPORTED [employer] Phone: Platelets (Bld) [#/Vol] 344 10*3/uL [employer] Phone: RBC (Bld) [#/Vol] 3.75 10*6/uL Low 3.95 - 5.1 1 m/uL [employer] Phone: RBC morphology finding Nom (Bld) NOT REPORTED [employer] Phone: Segmented neutrophils/100 WBC (Bld) 62 % 36 - 65 % [employer] Phone: Segs Absolute 4.61 [employer] Phone: WBC (Bld) [#/Vol] 7.5 10*3/uL [employer] Phone: WBC (Bld) [#/Vol] 0.0 10*3/uL 0.0 per 10 0 WBC [employer] Phone: WBC Morphology NOT REPORTED [employer] Phone: CBC with Diffon 11-07-2020 Abs. Basophil <0.03 Normal 0.00-0.20 [facility] Comment on above: Performed By: #### C DP, SED #### [facility] [address] [place] [address] Dr. [place] [phone] [employer] Operator: Loi Irene MD #### CRP #### [address] [phone] Ski Tow Operator: Dg Aparicio MD Abs.Imm.Granulocyte <0.03 Normal 0.00-0.30 [facility] Comment on above: Performed By: #### C DP, SED #### [address] [place] [phone] Ski Tow Operator: Loi Irene MD #### CRP #### [place] [address] Ski Tow Operator: Dg Aparicio MD Abs.Neutrophil (Seg) 4.61 k/uL Normal 1.50-8.10 [facility] Comment on above: Performed By: #### C DP, SED #### [address] [place] [phone] Ski Tow Operator: Loi Irene MD #### CRP #### [place] [address] Ski Tow Operator: Dg Aparicio MD Basophils/100 WBC (Bld) 0 % Normal 0-2 M [facility] Comment on above: Performed By: #### C DP, SED #### [facility] [address] [place] [address] Dr. [place] [phone] [employer] Operator: Loi Irene MD #### CRP #### [place] [address] Ski Tow Operator: Dg Aparicio MD Eosinophils (Bld) [#/Vol] 0.37 10*3/uL Normal 0.00-0.44 [facility] Comment on above: Performed By: #### C DP, SED #### [facility] [address] [place] [address] Dr. [place], [place] 1629483 Ski Tow Operator: Loi Irene MD #### CRP #### [address] [phone] Ski Tow Operator: Dg Aparicio MD Eosinophils/100 WBC (Bld) 5 % High 1-4 [facility] Comment on above: Performed By: #### C DP, SED #### [facility] [address] [place] [address] Dr. [place], [place] [phone] Ski Tow Operator: Loi Irene MD #### CRP #### [address] [phone] Ski Tow Operator: Dg Aparicio MD Erythrocyte distribution width (RBC) [Ratio] 17.7 % High 11.8-14.4 [facility] Comment on above: Performed By: #### C DP, SED #### [address] [place], [place] 9261083 Ski Tow Operator: Loi Irene MD #### CRP #### [address] [phone] Ski Tow Operator: Dg Aparicio MD Hematocrit (Bld) [Volume fraction] 36.9 % Normal 36.3-47.1 [facility] Comment on above: Performed By: #### C DP, SED #### [facility] [address] [place] [address] Dr. [place], [place] 2771283 Ski Tow Operator: Loi Irene MD #### CRP #### [address] [phone] Ski Tow Operator: Dg Aparicio MD Hemoglobin (Bld) [Mass/Vol] 11.1 g/dL Low 11.9-15.1 [facility] Comment on above: Performed By: #### C DP, SED #### [address] [place] [phone] ( Ski Tow Operator: Loi Irene MD #### CRP #### [place] [address] Ski Tow Operator: Dg Aparicio MD Immature granulocytes/100 WBC (Bld) 0 % Normal 0 [facility] Comment on above: Performed By: #### C DP, SED #### [facility] [address] [place] [address] Dr. [place] [phone] Ski Tow Operator: Loi Irene MD #### CRP #### [place] [address] Ski Tow Operator: Dg Aparicio MD Lymphocytes (Bld) [#/Vol] 1.74 10*3/uL Normal 1.10-3.70 [facility] Comment on above: Performed By: #### C DP, SED #### [address] [place] [address] Ski Tow Operator: Loi Irene MD #### CRP #### [place] [address] Ski Tow Operator: Dg Aparicio MD Lymphocytes/100 WBC (Bld) 23 % Low 24-43 [facility] Comment on above: Performed By: #### C DP, SED #### [facility] [address] [place] [address] [place] [address] Ski Tow Operator: Loi Irene MD #### CRP #### [place] [address] Ski Tow Operator: Dg Aparicio MD MCH (RBC) [Entitic mass] 29.6 pg Normal 25.2-33.5 [facility] Comment on above: Performed By: #### C DP, SED #### [address] [place] [phone] Ski Tow Operator: Loi Irene MD #### CRP #### [address] [phone] Ski Tow Operator: Dg Aparicio MD MCHC (RBC) [Mass/Vol] 30.1 g/dL Normal 28.4-34.8 [facility] Comment on above: Performed By: #### C DP, SED #### [address] [place] [phone] Ski Tow Operator: Loi Irene MD #### CRP #### [address] [phone] Ski Tow Operator: Dg Aparicio MD MCV (RBC) [Entitic vol] 98.4 fL Normal 82.6-102.9 [facility] Comment on above: Performed By: #### C DP, SED #### [address] [place] [phone] Ski Tow Operator: Loi Irene MD #### CRP #### [place] [address] Ski Tow Operator: Dg Aparicio MD Monocytes (Bld) [#/Vol] 0.76 10*3/uL Normal 0.10-1.20 [facility] Comment on above: Performed By: #### C DP, SED #### [address] [place] [phone] Ski Tow Operator: Loi Irene MD #### CRP #### [address] [address] Ski Tow Operator: Dg Aparicio MD Monocytes/100 WBC (Bld) 10 % Normal 3-12 [facility] Comment on above: Performed By: #### C DP, SED #### [address] [place] [phone] Ski Tow Operator: Loi Irene MD #### CRP #### [address] [place] [address] Ski Tow Operator: Dg Aparicio MD Neutrophil (Seg) 62 % Normal 36-65 [facility] Comment on above: Performed By: #### C DP, SED #### [facility] [address] [place] [address] [place] [phone] Ski Tow Operator: Loi Irene MD #### CRP #### [address] [address] Ski Tow Operator: Dg Aparicio MD NRBC Automated 0.0 per 100 WBC Normal 0.0 [facility] Comment on above: Performed By: #### C DP, SED #### [address] [place] [phone] Ski Tow Operator: Loi Irene MD #### CRP #### [address] [address] Ski Tow Operator: Dg Aparicio MD Platelet mean volume (Bld) [Entitic vol] 9.9 fL Normal 8.1-13.5 [facility] Comment on above: Performed By: #### C DP, SED #### [address] [place] [phone] Ski Tow Operator: Loi Irene MD #### CRP #### [address] [address] Ski Tow Operator: Dg Aparicio MD Platelets (Bld) [#/Vol] 344 10*3/uL Normal 138-453 [facility] Comment on above: Performed By: #### C DP, SED #### [address] [place], [place] [phone] Ski Tow Operator: Loi Irene MD #### CRP #### [address] [address] Ski Tow Operator: Dg Aparicio MD RBC (Bld) [#/Vol] 3.75 10*6/uL Low 3.95-5.11 [facility] Comment on above: Performed By: #### C DP, SED #### [address] [place] [address] Ski Tow Operator: Loi Irene MD #### CRP #### [address] [address] Ski Tow Operator: Dg Aparicio MD WBC (Bld) [#/Vol] 7.5 10*3/uL Normal 3.5-11.3 [facility] Comment on above: Performed By: #### C DP, SED #### [address] [place] [address] Ski Tow Operator: Loi Irene MD #### CRP #### [address] [address] Ski Tow Operator: Dg Aparicio MD Auto Diff Performed NOT REPORTED Normal [facility] Comment on above: Performed By: #### C DP, SED #### [address] [place] [phone] Ski Tow Operator: Loi Irene MD #### CRP #### [address] [address] Ski Tow Operator: Dg Aparicio MD Platelet Estimate NOT REPORTED Normal [facility] Comment on above: Performed By: #### C DP, SED #### [address] [place] [address] Ski Tow Operator: Loi Irene MD #### CRP #### [address] [address] Ski Tow Operator: Dg Aparicio MD RBC morphology finding Nom (Bld) NOT REPORTED Normal [facility] Comment on above: Performed By: #### C DP, SED #### [address] [place] [phone] Ski Tow Operator: Loi Irene MD #### CRP #### [facility] [address] [place], [place] [phone] Ski Tow Operator: Dg Aparicio MD WBC Morphology NOT REPORTED Normal [facility] Comment on above: Performed By: #### C DP, SED #### [facility] [address] [place], [place] [phone] Ski Tow Operator: Loi Irene MD #### CRP #### [facility] [address] [place], [place] [phone] Ski Tow Operator: Dg Aparicio MD Sedimentation Rateon 021 Sedimentation Rate 51 mm High 0-20 [facility] Comment on above: Performed By: #### C DP, SED #### [facility] [address] [place], [place] 1145383 Ski Tow Operator: Loi Irene MD #### CRP #### [address] [address] Ski Tow Operator: Dg Aparicio MD Interpretation and review of laboratory results Abnormal [facility] Work Phone: Sed Rate 51 mm High 0 - [address] [facility] Phone: Lipid Panelon 10-30-2020 Cholesterol [Mass/Vol] 147 mg/dL <200 [place], [place] Comment on above: Cholesterol Guidelines: <200 Desirable 200-240 Borderline >240 Undesirable Cholesterol in HDL [Mass/Vol] 50 mg/dL >40 [place], [place] Comment on above: HDL Guidelines: <40 Undesirable 40-59 Borderline >59 Desirable Cholesterol in LDL [Mass/Vol] 64 mg/dL 0 - 130 mg/dL [place], [place] Comment on above: LDL Guidelines: <100 Desirable 100-129 Near to/above Desirable 130-159 Borderline >159 Undesirable Direct (measured) LDL and calculated LDL are not interchangeable tests. Cholesterol in VLDL [Mass/Vol] NOT REPORTED High 1 - 30 mg/dL [place], [place] Cholesterol.total/Choles terol in HDL [Mass ratio] 2.9 {ratio} <5 [place], [place] Interpretation and review of laboratory results Abnormal [place] Triglyceride [Mass/Vol] 166 mg/dL High <150 [place], [place] Comment on above: Triglyceride Guidelines: <150 Desirable 150-199 Borderline 200-499 High >499 Very high Based on AHA Guidelines for fasting triglyceride, June 2012. Lipid Profileon 10-30-2020 Cholesterol [Mass/Vol] 147 mg/dL Normal <200 [facility] Comment on above: Result Comment: Cholesterol Guidelines: <200 Desirable 200-240 Borderline >240 Undesirable Performed By: #### L IPR #### [address] [phone] [employer] Operator: Dg Aparicio MD Cholesterol in HDL [Mass/Vol] 50 mg/dL Normal >40 [facility] Comment on above: Result Comment: HDL Guidelines: <40 Undesirable 40-59 Borderline >59 Desirable Performed By: #### L IPR #### [facility] [address] [place] [address] [phone] Ski Tow Operator: Dg Aparicio MD Cholesterol in LDL [Mass/Vol] 64 mg/dL Normal 0-130 [facility] Comment on above: Result Comment: LDL Guidelines: <100 Desirable 100-129 Near to/above Desirable 130-159 Borderline >159 Undesirable Direct (measured) LDL and calculated LDL are not interchangeable tests. Performed By: #### L IPR #### [facility] [address] [place] [address] [phone] Ski Tow Operator: Dg Aparicio MD Cholesterol.total/Choles terol in HDL [Mass ratio] 2.9 {ratio} Normal <5 [facility] Comment on above: Performed By: #### L IPR #### [facility] [address] [place] [address] [phone] Ski Tow Operator: Dg Aparicio MD Triglyceride [Mass/Vol] 166 mg/dL High <150 M [facility] Comment on above: Result Comment: Triglyceride Guidelines: <150 Desirable 150-199 Borderline 200-499 High >499 Very high Based on AHA Guidelines for fasting triglyceride, June 2012. Performed By: #### L IPR #### [address] [place] [address] Ski Tow Operator: Dg Aparicio MD Cholesterol,VLDL NOT REPORTED Normal - [facility] Comment on above: Performed By: #### L IPR #### [address] [address] Ski Tow Operator: Dg Aparicio MD C-Reactive Proteinon CRP [Mass/Vol] 51.2 mg/L High 0.0-5.0 [facility] Comment on above: Performed By: #### C DP #### [facility] [address] [place] [address] [place] [address] Ski Tow Operator: Loi Irene MD #### CRP #### [address] [address] Ski Tow Operator: Dg Aparicio MD CRP [Mass/Vol] 51.2 mg/L High 0 - 5 mg/L [place], [place] Interpretation and review of laboratory results Abnormal [place], [place] CBCon 10-23-2020 Erythrocyte distribution width (RBC) [Ratio] 16.5 % High 11.8-14.4 [facility] Comment on above: Performed By: #### C DP #### [facility] [address] [place] [address] Ski Tow Operator: Loi Irene MD #### CRP #### [address] [address] Ski Tow Operator: Dg Aparicio MD Hematocrit (Bld) [Volume fraction] 32.7 % Low 36.3-47.1 [facility] Comment on above: Performed By: #### C DP #### [facility] [address] [place] [address] Ski Tow Operator: Loi Irene MD #### CRP #### [address] [phone] Ski [employer] Operator: Dg Aparicio MD Hemoglobin (Bld) [Mass/Vol] 10.0 g/dL Low 11.9-15.1 [facility] Comment on above: Performed By: #### C DP #### [facility] [facility] [address] [place] [address] Dr. [place] [id number] Ski [employer] Operator: Loi Irene MD #### CRP #### [address] [id number] Ski Tow Operator: Dg Aparicio MD MCH (RBC) [Entitic mass] 29.0 pg Normal 25.2-33.5 [facility] Comment on above: Performed By: #### C DP #### [address] [place] [phone] Ski [employer] Operator: Loi Irene MD #### CRP #### [address] [address] Ski Tow Operator: Dg Aparicio MD MCHC (RBC) [Mass/Vol] 30.6 g/dL Normal 28.4-34.8 [facility] Comment on above: Performed By: #### C DP #### [address] [place] [phone] Ski [employer] Operator: Loi Irene MD #### CRP #### [address] [id number] Ski Tow Operator: Dg Aparicio MD MCV (RBC) [Entitic vol] 94.8 fL Normal 82.6-102.9 [facility] Comment on above: Performed By: #### C DP #### [address] [place] [phone] Ski [employer] Operator: Loi Irene MD #### CRP #### [address] [place] [address] Ski Tow Operator: Dg Aparicio MD NRBC Automated 0.0 per 100 WBC Normal 0.0 [facility] Comment on above: Performed By: #### C DP #### [facility] [address] [place], [place] [phone] Ski Tow Operator: Loi Irene MD #### CRP #### [address] [address] Ski Tow Operator: Dg Aparicio MD Platelet mean volume (Bld) [Entitic vol] 9.6 fL Normal 8.1-13.5 [facility] Comment on above: Performed By: #### C DP #### [address] [place], [place] [phone] Ski [employer] Operator: Loi Irene MD #### CRP #### [address] [address] Ski Tow Operator: Dg Aparicio MD Platelets (Bld) [#/Vol] 478 10*3/uL High 138-453 [facility] Comment on above: Performed By: #### C DP #### [facility] [address] [place] [address] Dr. [place], [place] [id number] Ski Tow Operator: Loi Irene MD #### CRP #### [address] [address] Ski Tow Operator: Dg Aparicio MD RBC (Bld) [#/Vol] 3.45 10*6/uL Low 3.95-5.11 [facility] Comment on above: Performed By: #### C DP #### [facility] [address] [place], [place] [phone] Ski [employer] Operator: Loi Irene MD #### CRP #### [address] [address] Ski Tow Operator: Dg Aparicio MD WBC (Bld) [#/Vol] 8.2 10*3/uL Normal 3.5-11.3 [facility] Comment on above: Performed By: #### C DP #### [facility] [address] [place] [address] Ski Tow Operator: Loi Irnee MD #### CRP #### [facility] [address] [place] [address] Ski Tow Operator: Dg Aparicio MD Erythrocyte distribution width (RBC) [Ratio] 16.5 % High 11.8 - 14.4 % [place] Hematocrit (Bld) [Volume fraction] 32.7 % Low 36.3 - 47.1 % [place] Hemoglobin (Bld) [Mass/Vol] 10.0 g/dL Low 11.9 - 15.1 g/dL [place] Interpretation and review of laboratory results Abnormal [place] MCH (RBC) [Entitic mass] 29.0 pg 25. 2 - 33.5 pg [place] MCHC (RBC) [Mass/Vol] 30.6 g/dL 28.4 - 34.8 g/dL [place] MCV (RBC) [Entitic vol] 94.8 fL 82.6 - 102.9 fL [place] Platelet mean volume (Bld) [Entitic vol] 9.6 fL 8.1 - 13.5 fL [place] Platelets (Bld) [#/Vol] 478 10*3/uL High [place] RBC (Bld) [#/Vol] 3.45 10*6/uL Low 3.95 - 5.1 1 m/uL [place] WBC (Bld) [#/Vol] 8.2 10*3/uL [place] WBC (Bld) [#/Vol] 0.0 10*3/uL 0.0 per 10 0 WBC [place] Comp Metabolic Profon 2020 (cont.) Normal [facility] Comment on above: Result Comment: Aver age GFR for 70 or more years old: 75 mL/min/1.73sq m Chronic Kidney Disease: <60 mL/min/1.73sq m Kidney failure: <15 mL/min/1.73sq m eGFR calculated using average adult body mass. Additional eGFR calculator available at: http://www.Context Relevant/multiple_crcl_2011.htm Performed By: #### C DP #### [address] [place], [place] [phone] Ski [employer] Operator: Loi Irene MD #### CRP #### [address] [address] [employer] Tow Operator: Dg Aparicio MD Albumin [Mass/Vol] 3.0 g/dL Low 3.5-5.2 [facility] Comment on above: Performed By: #### C DP #### [address] [place], [place] [phone] Ski [employer] Operator: Loi Irene MD #### CRP #### [address] [address] Ski Tow Operator: Dg Aparicio MD Albumin/Glob Ratio 0.8 Low 1.0-2.5 [facility] Comment on above: Performed By: #### C DP #### [address] [place], [place] [phone] Ski [employer] Operator: Loi Irene MD #### CRP #### [address] [address] Ski Tow Operator: Dg Aparicio MD Alkaline Phos 105 U/L High 35-104 [facility] Comment on above: Performed By: #### C DP #### [address] [place], [place] [phone] Ski [employer] Operator: Loi Irene MD #### CRP #### [address] [address] Ski Tow Operator: Dg Aparicio MD ALT [Catalytic activity/Vol] 11 U/L Normal 5-33 [facility] Comment on above: Performed By: #### C DP #### [facility] [address] [place] [address] Ski Tow Operator: Loi Irene MD #### CRP #### [address] [address] Ski Tow Operator: Dg Aparicio MD Anion gap [Moles/Vol] 11 mmol/L Normal 9-17 [facility] Comment on above: Performed By: #### C DP #### [facility] [address] [place] [address] Ski Tow Operator: Loi Irene MD #### CRP #### [address] [address] Ski Tow Operator: Dg Aparicio MD AST [Catalytic activity/Vol] 14 U/L Normal <32 [facility] Comment on above: Performed By: #### C DP #### [facility] [address] [place], [place] [phone] Ski Tow Operator: Loi Irene MD #### CRP #### [address] [address] Ski Tow Operator: Dg Aparicio MD Bilirubin [Mass/Vol] 0.24 mg/dL Low 0.3-1.2 [facility] Comment on above: Performed By: #### C DP #### [facility] [address] [place], [place] [phone] Ski Tow Operator: Loi Irene MD #### CRP #### [address] [address] Ski Tow Operator: Dg Aparicio MD BUN/CRE Ratio 22 High 9-20 [facility] Comment on above: Performed By: #### C DP #### [facility] [address] [place], [place] [phone] Ski Tow Operator: Loi Irene MD #### CRP #### [address] [address] Ski Tow Operator: Dg Aparicio MD Calcium [Mass/Vol] 8.9 mg/dL Normal 8.6-10.4 [facility] Comment on above: Performed By: #### C DP #### [facility] [address] [place] [address] Dr. [place], [place] [phone] Ski [employer] Operator: Loi Irene MD #### CRP #### [address] [address] Ski Tow Operator: Dg Aparicio MD Chloride [Moles/Vol] 99 mmol/L Normal 98-107 [facility] Comment on above: Performed By: #### C DP #### [address] [place] [address] Ski Tow Operator: Loi Irene MD #### CRP #### [address] [address] Ski Tow Operator: Dg Aparicio MD CO2 [Moles/Vol] 28 mmol/L Normal 20-31 [facility] Comment on above: Performed By: #### C DP #### [facility] [address] [place] [address] [place] [address] [employer] Tow Operator: Loi Irene MD #### CRP #### [address] [address] Ski Tow Operator: Dg Aparicio MD Creatinine [Mass/Vol] 1.27 mg/dL High 0.50-0.90 [facility] Comment on above: Performed By: #### C DP #### [address] [place], [place] [phone] Ski Tow Operator: Loi Irene MD #### CRP #### [address] [address] Ski Tow Operator: Dg Aparicio MD GFR, Amer 49 mL/min Low >60 [facility] Comment on above: Performed By: #### C DP #### [facility] [address] [place], [place] [phone] Ski Tow Operator: Loi Irene MD #### CRP #### [address] [address] Ski Tow Operator: Dg Aparicio MD GFR,non Amer 40 mL/min Low >60 [facility] Comment on above: Performed By: #### C DP #### [facility] [address] [place] [address] Dr. [place], [place] [phone] Ski Tow Operator: Loi Irene MD #### CRP #### [address] [address] Ski Tow Operator: Dg Aparicio MD Glucose [Mass/Vol] 159 mg/dL High 70-99 [facility] Comment on above: Performed By: #### C DP #### [facility] [address] [place], [place] [phone] Ski Tow Operator: Loi Irene MD #### CRP #### [address] [address] Ski Tow Operator: Dg Aparicio MD Potassium [Moles/Vol] 3.3 mmol/L Low 3.7-5.3 [facility] Comment on above: Performed By: #### C DP #### [facility] [address] [place], [place] [phone] Ski Tow Operator: Loi Irene MD #### CRP #### [address] [address] Ski Tow Operator: Dg Aparicio MD Protein [Mass/Vol] 6.7 g/dL Normal 6.4-8.3 [facility] Comment on above: Performed By: #### C DP #### [facility] [address] [place], [place] [phone] Ski Tow Operator: Loi Irene MD #### CRP #### [place] [address] [place] [address] Ski Tow Operator: Dg Aparicio MD Sodium [Moles/Vol] 138 mmol/L Normal 135-144 [facility] Comment on above: Performed By: #### C DP #### [address] [place], [place] [phone] Ski Tow Operator: Loi Irene MD #### CRP #### [address] [address] Ski Tow Operator: Dg Aparicio MD Staging: Normal [facility] Comment on above: Result Comment: Stag e 1: Some kidney damage normal GFR Stage 2: Mild kidney damage GFR 60-89 Stage 3: Moderate kidney damage GFR 30-59 Stage 4: Severe kidney damage GFR 15-29 Stage 5: Severe kidney damage GFR <15 ESRD - chronic treatment by dialysis or transplant Performed By: #### C DP #### [address] [place], [place] [phone] Ski [employer] Operator: Loi Irene MD #### CRP #### [address] [address] Ski Tow Operator: Dg Aparicio MD Urea nitrogen [Mass/Vol] 28 mg/dL High 8-23 [facility] Comment on above: Performed By: #### C DP #### [address] [place], [place] [phone] Ski Tow Operator: Loi Irene MD #### CRP #### [place] [address] [place] [address] Ski Tow Operator: Dg Aparicio MD Comprehensive Metabolic Pane riddhi 10-23-2020 Albumin [Mass/Vol] 3 g/dL Low 3.5 - 5.2 g/dL [place] Albumin/Globulin [Mass ratio] 0.8 {ratio} Low [place] ALP [Catalytic activity/Vol] 105 U/L High 35 - 104 U/L [place] ALT [Catalytic activity/Vol] 11 U/L 5 - 33 U/L [place] Anion gap [Moles/Vol] 11 mmol/L 9 - 17 mmol/L [place] AST [Catalytic activity/Vol] 14 U/L <32 [place] Bilirubin Ql (U) 0.24 mg/dL Low 0.3 - 1.2 mg/dL [place] Bun/Cre Ratio 22 High [place] Calcium [Mass/Vol] 8.9 mg/dL 8.6 - 10. 4 mg/dL [place] Chloride [Moles/Vol] 99 mmol/L 98 - 10 7 mmol/L [place] CO2 [Moles/Vol] 28 mmol/L 20 - 31 mmol/L [place] Creatinine [Mass/Vol] 1.27 mg/dL High 0.5 - 0.9 mg/dL [place] GFR 49 mL/min Low >60 [place] GFR Non- 40 mL/min Low >60 [place] Glucose [Mass/Vol] 159 mg/dL High 70 - 99 mg/dL [place] Interpretation and review of laboratory results Abnormal [place] Potassium [Moles/Vol] 3.3 mmol/L Low 3.7 - 5.3 mmol/L [place] Protein [Mass/Vol] 6.7 g/dL 6.4 - 8.3 g/dL [place] Sodium [Moles/Vol] 138 mmol/L 135 - 144 mmol/L [place] Urea nitrogen [Mass/Vol] 28 mg/dL High 8 - 23 mg/dL [place] Metabolic Panelon 10-23-2020 GFR/1.73 sq M predicted among non-blacks MDRD (S/P/Bld) [Vol rate/Area] [place] Comment on above: Average GFR for 70 o r more years old: 75 mL/min/1.73sq m Chronic Kidney Disease: <60 mL/min/1.73sq m Kidney failure: <15 mL/min/1.73sq m eGFR calculated using average adult body mass. Additional eGFR calculator available at: http://www.Context Relevant/multiple_crcl_2012.htm Stage 1: Some kidney damage normal GFR Stage 2: Mild kidney damage GFR 60-89 Stage 3: Moderate kidney damage GFR 30-59 Stage 4: Severe kidney damage GFR 15-29 Stage 5: Severe kidney damage GFR <15 ESRD - chronic treatment by dialysis or transplant Sedimentation Rateon 021 Sedimentation Rate 101 mm High 0-20 [facility] Comment on above: Performed By: #### C DP #### [facility] [address] [place] [address] Ski Tow Operator: Loi Irene MD #### CRP #### [facility] [address] [place] [address] Ski Tow Operator: Dg Aparicio MD Interpretation and review of laboratory results Abnormal [place] Sed Rate 101 mm High 0 - 20 mm [place] C-Reactive Proteinon 020 CRP [Mass/Vol] 33.8 mg/L High 0 - 5 mg/L [place] Interpretation and review of laboratory results Abnormal [place] CBCon 09-26-2020 Erythrocyte distribution width (RBC) [Ratio] 14.3 % 11.8 - 14.4 % [place] Hematocrit (Bld) [Volume fraction] 38.8 % 36.3 - 47.1 % [place] Hemoglobin (Bld) [Mass/Vol] 11.8 g/dL Low 11.9 - 15.1 g/dL [place] Interpretation and review of laboratory results Abnormal [place] MCH (RBC) [Entitic mass] 28.5 pg 25. 2 - 33.5 pg [place] MCHC (RBC) [Mass/Vol] 30.4 g/dL 28.4 - 34.8 g/dL [place] MCV (RBC) [Entitic vol] 93.7 fL 82.6 - 102.9 fL [place] Platelet mean volume (Bld) [Entitic vol] 9.9 fL 8.1 - 13.5 fL [place] Platelets (Bld) [#/Vol] 230 10*3/uL [place] RBC (Bld) [#/Vol] 4.14 10*6/uL 3.95 - 5.1 1 m/uL [place] WBC (Bld) [#/Vol] 6.9 10*3/uL [place] WBC (Bld) [#/Vol] 0.0 10*3/uL 0.0 per 10 0 WBC [place] Comprehensive Metabolic Pane riddhi 09-26-2020 Albumin [Mass/Vol] 3.4 g/dL Low 3.5 - 5.2 g/dL [place] Albumin/Globulin [Mass ratio] 1.0 {ratio} [place] ALP [Catalytic activity/Vol] 131 U/L High 35 - 104 U/L [place] ALT [Catalytic activity/Vol] 23 U/L 5 - 33 U/L [place] Anion gap [Moles/Vol] 13 mmol/L 9 - 17 mmol/L [place] AST [Catalytic activity/Vol] 21 U/L <32 [place] Bilirubin Ql (U) 0.36 mg/dL 0.3 - 1.2 mg/dL [place] Bun/Cre Ratio 24 High [place] Calcium [Mass/Vol] 8.7 mg/dL 8.6 - 10. 4 mg/dL [place] Chloride [Moles/Vol] 96 mmol/L Low 98 - 10 7 mmol/L [place] CO2 [Moles/Vol] 28 mmol/L 20 - 31 mmol/L [place] Creatinine [Mass/Vol] 1.27 mg/dL High 0.5 - 0.9 mg/dL [place] GFR 49 mL/min Low >60 [place] GFR Non- 40 mL/min Low >60 [place] Glucose [Mass/Vol] 138 mg/dL High 70 - 99 mg/dL [place] Interpretation and review of laboratory results Abnormal [place] Potassium [Moles/Vol] 3.4 mmol/L Low 3.7 - 5.3 mmol/L [place] Protein [Mass/Vol] 6.7 g/dL 6.4 - 8.3 g/dL [place] Sodium [Moles/Vol] 137 mmol/L 135 - 144 mmol/L [place] Urea nitrogen [Mass/Vol] 31 mg/dL High 8 - 23 mg/dL [place] Magnesiumon 09-26-2020 Magnesium [Mass/Vol] 2.1 mg/dL 1.6 - 2 .6 mg/dL [place] Metabolic Panelon 09-26-2020 GFR/1.73 sq M predicted among non-blacks MDRD (S/P/Bld) [Vol rate/Area] [place] Comment on above: Average GFR for 70 o r more years old: 75 mL/min/1.73sq m Chronic Kidney Disease: <60 mL/min/1.73sq m Kidney failure: <15 mL/min/1.73sq m eGFR calculated using average adult body mass. Additional eGFR calculator available at: http://www.Planet [employer].Awesome.me/multiple_crcl_2011.htm Stage 1: Some kidney damage normal GFR Stage 2: Mild kidney damage GFR 60-89 Stage 3: Moderate kidney damage GFR 30-59 Stage 4: Severe kidney damage GFR 15-29 Stage 5: Severe kidney damage GFR <15 ESRD - chronic treatment by dialysis or transplant Sedimentation Rateon 020 Interpretation and review of laboratory results Abnormal [place] Sed Rate 53 mm High 0 - 20 mm [place] C-Reactive Proteinon 020 CRP [Mass/Vol] 43.7 mg/L High 0 - 5 mg/L [place] Interpretation and review of laboratory results Abnormal [place] CBCon 09-18-2020 Erythrocyte distribution width (RBC) [Ratio] 14.0 % 11.8 - 14.4 % [place] Hematocrit (Bld) [Volume fraction] 37.2 % 36.3 - 47.1 % [place] Hemoglobin (Bld) [Mass/Vol] 11.4 g/dL Low 11.9 - 15.1 g/dL [place] Interpretation and review of laboratory results Abnormal [place] MCH (RBC) [Entitic mass] 29.2 pg 25. 2 - 33.5 pg [place] MCHC (RBC) [Mass/Vol] 30.6 g/dL 28.4 - 34.8 g/dL [place] MCV (RBC) [Entitic vol] 95.4 fL 82.6 - 102.9 fL [place] Platelet mean volume (Bld) [Entitic vol] 10.6 fL 8.1 - 13.5 fL [place] Platelets (Bld) [#/Vol] 254 10*3/uL [place] RBC (Bld) [#/Vol] 3.90 10*6/uL Low 3.95 - 5.1 1 m/uL [place] WBC (Bld) [#/Vol] 8.3 10*3/uL [place] WBC (Bld) [#/Vol] 0.0 10*3/uL 0.0 per 10 0 WBC [place] Comprehensive Metabolic Pane riddhi 09-18-2020 Albumin [Mass/Vol] 3.3 g/dL Low 3.5 - 5.2 g/dL [place] Albumin/Globulin [Mass ratio] 1.1 {ratio} [place] ALP [Catalytic activity/Vol] 137 U/L High 35 - 104 U/L [place] ALT [Catalytic activity/Vol] 14 U/L 5 - 33 U/L [place] Anion gap [Moles/Vol] 8 mmol/L Low 9 - 17 mmol/L [place] AST [Catalytic activity/Vol] 12 U/L <32 [place] Bilirubin Ql (U) 0.27 mg/dL Low 0.3 - 1.2 mg/dL [place] Bun/Cre Ratio 30 High [place] Calcium [Mass/Vol] 8.9 mg/dL 8.6 - 10. 4 mg/dL [place] Chloride [Moles/Vol] 95 mmol/L Low 98 - 10 7 mmol/L [place] CO2 [Moles/Vol] 30 mmol/L 20 - 31 mmol/L [place] Creatinine [Mass/Vol] 1.21 mg/dL High 0.5 - 0.9 mg/dL [place] GFR 52 mL/min Low >60 [place] GFR Non- 42 mL/min Low >60 [place] Glucose [Mass/Vol] 206 mg/dL High 70 - 99 mg/dL [place] Interpretation and review of laboratory results Abnormal [place] Potassium [Moles/Vol] 2.9 mmol/L Critically low 3.7 - 5.3 mmol/L [place] Protein [Mass/Vol] 6.4 g/dL 6.4 - 8.3 g/dL [place] Sodium [Moles/Vol] 133 mmol/L Low 135 - 144 mmol/L [place] Urea nitrogen [Mass/Vol] 36 mg/dL High 8 - 23 mg/dL [place] Metabolic Panelon 09-18-2020 GFR/1.73 sq M predicted among non-blacks MDRD (S/P/Bld) [Vol rate/Area] [place] Comment on above: Average GFR for 70 o r more years old: 75 mL/min/1.73sq m Chronic Kidney Disease: <60 mL/min/1.73sq m Kidney failure: <15 mL/min/1.73sq m eGFR calculated using average adult body mass. Additional eGFR calculator available at: http://www.Context Relevant/multiple_crcl_2011.htm Stage 1: Some kidney damage normal GFR Stage 2: Mild kidney damage GFR 60-89 Stage 3: Moderate kidney damage GFR 30-59 Stage 4: Severe kidney damage GFR 15-29 Stage 5: Severe kidney damage GFR <15 ESRD - chronic treatment by dialysis or transplant Sedimentation Rateon 020 Interpretation and review of laboratory results Abnormal [place] Sed Rate 37 mm High 0 - 20 mm [place] C-Reactive Proteinon 020 CRP [Mass/Vol] 17.9 mg/L High 0 - 5 mg/L [place] Interpretation and review of laboratory results Abnormal [place] CBCon 09-11-2020 Erythrocyte distribution width (RBC) [Ratio] 13.8 % 11.8 - 14.4 % [place] Hematocrit (Bld) [Volume fraction] 37.9 % 36.3 - 47.1 % [place] Hemoglobin (Bld) [Mass/Vol] 11.4 g/dL Low 11.9 - 15.1 g/dL [place] Interpretation and review of laboratory results Abnormal [place] MCH (RBC) [Entitic mass] 28.4 pg 25. 2 - 33.5 pg [place] MCHC (RBC) [Mass/Vol] 30.1 g/dL 28.4 - 34.8 g/dL [place] MCV (RBC) [Entitic vol] 94.5 fL 82.6 - 102.9 fL [place] Platelet mean volume (Bld) [Entitic vol] 10.7 fL 8.1 - 13.5 fL [place] Platelets (Bld) [#/Vol] 269 10*3/uL [place] RBC (Bld) [#/Vol] 4.01 10*6/uL 3.95 - 5.1 1 m/uL [place] WBC (Bld) [#/Vol] 0.0 10*3/uL 0.0 per 10 0 WBC [place] WBC (Bld) [#/Vol] 7.1 10*3/uL [place] Comprehensive Metabolic Pane riddhi 09-11-2020 Albumin [Mass/Vol] 3.8 g/dL 3.5 - 5.2 g/dL [place] Albumin/Globulin [Mass ratio] 1.7 {ratio} [place] ALP [Catalytic activity/Vol] 145 U/L High 35 - 104 U/L [place] ALT [Catalytic activity/Vol] 14 U/L 5 - 33 U/L [place] Anion gap [Moles/Vol] 13 mmol/L 9 - 17 mmol/L [place] AST [Catalytic activity/Vol] 12 U/L <32 [place] Bilirubin Ql (U) 0.28 mg/dL Low 0.3 - 1.2 mg/dL [place] Bun/Cre Ratio 35 High [place] Calcium [Mass/Vol] 9.3 mg/dL 8.6 - 10. 4 mg/dL [place] Chloride [Moles/Vol] 98 mmol/L 98 - 10 7 mmol/L [place] CO2 [Moles/Vol] 28 mmol/L 20 - 31 mmol/L [place] Creatinine [Mass/Vol] 1.33 mg/dL High 0.5 - 0.9 mg/dL [place] GFR 46 mL/min Low >60 [place] GFR Non- 38 mL/min Low >60 [place] Glucose [Mass/Vol] 150 mg/dL High 70 - 99 mg/dL [place] Interpretation and review of laboratory results Abnormal [place] Potassium [Moles/Vol] 3.0 mmol/L Low 3.7 - 5.3 mmol/L [place] Protein [Mass/Vol] 6.1 g/dL Low 6.4 - 8.3 g/dL [place] Sodium [Moles/Vol] 139 mmol/L 135 - 144 mmol/L [place] Urea nitrogen [Mass/Vol] 46 mg/dL High 8 - 23 mg/dL [place] Metabolic Panelon 09-11-2020 GFR/1.73 sq M predicted among non-blacks MDRD (S/P/Bld) [Vol rate/Area] [place] Comment on above: Average GFR for 70 o r more years old: 75 mL/min/1.73sq m Chronic Kidney Disease: <60 mL/min/1.73sq m Kidney failure: <15 mL/min/1.73sq m eGFR calculated using average adult body mass. Additional eGFR calculator available at: http://www.Context Relevant/multiple_crcl_2012.htm Stage 1: Some kidney damage normal GFR Stage 2: Mild kidney damage GFR 60-89 Stage 3: Moderate kidney damage GFR 30-59 Stage 4: Severe kidney damage GFR 15-29 Stage 5: Severe kidney damage GFR <15 ESRD - chronic treatment by dialysis or transplant Sedimentation Rateon Interpretation and review of laboratory results Abnormal [place] Sed Rate 34 mm High 0 - 20 mm [place] C-Reactive Proteinon CRP [Mass/Vol] 11.1 mg/L High 0 - 5 mg/L [place] Interpretation and review of laboratory results Abnormal [place] Comprehensive Metabolic Pane riddhi 09-06-2020 Albumin [Mass/Vol] 3.8 g/dL 3.5 - 5.2 g/dL [place] Albumin/Globulin [Mass ratio] 1.2 {ratio} [place] ALP [Catalytic activity/Vol] 149 U/L High 35 - 104 U/L [place] ALT [Catalytic activity/Vol] 18 U/L 5 - 33 U/L [place] Anion gap [Moles/Vol] 13 mmol/L 9 - 17 mmol/L [place] AST [Catalytic activity/Vol] 18 U/L <32 [place] Bilirubin Ql (U) 0.28 mg/dL Low 0.3 - 1.2 mg/dL [place] Bun/Cre Ratio 33 High [place] Calcium [Mass/Vol] 9.8 mg/dL 8.6 - 10. 4 mg/dL [place] Chloride [Moles/Vol] 97 mmol/L Low 98 - 10 7 mmol/L [place] CO2 [Moles/Vol] 28 mmol/L 20 - 31 mmol/L [place] Creatinine [Mass/Vol] 1.33 mg/dL High 0.5 - 0.9 mg/dL [place] GFR 46 mL/min Low >60 [place] GFR Non- 38 mL/min Low >60 [place] Glucose [Mass/Vol] 209 mg/dL High 70 - 99 mg/dL [place] Interpretation and review of laboratory results Abnormal [place] Potassium [Moles/Vol] 3.0 mmol/L Low 3.7 - 5.3 mmol/L [place] Protein [Mass/Vol] 7.0 g/dL 6.4 - 8.3 g/dL [place] Sodium [Moles/Vol] 138 mmol/L 135 - 144 mmol/L [place] Urea nitrogen [Mass/Vol] 44 mg/dL High 8 - 23 mg/dL [place] Metabolic Panelon 09-06-2020 GFR/1.73 sq M predicted among non-blacks MDRD (S/P/Bld) [Vol rate/Area] [place] Comment on above: Stage 1: Some [...] body mass. Additional eGFR calculator available at: http://www.[employer]et [employer].Awesome.me/multiple_crcl_2012.htm CBCon 09-05-2020 Erythrocyte distribution width (RBC) [Ratio] 13.9 % 11.8 - 14.4 % [place] Hematocrit (Bld) [Volume fraction] 39.5 % 36.3 - 47.1 % [place] Hemoglobin (Bld) [Mass/Vol] 12.0 g/dL 11.9 - 15.1 g/dL [place] MCH (RBC) [Entitic mass] 29.0 pg 25. 2 - 33.5 pg [place] MCHC (RBC) [Mass/Vol] 30.4 g/dL 28.4 - 34.8 g/dL [place] MCV (RBC) [Entitic vol] 95.4 fL 82.6 - 102.9 fL [place] Platelet mean volume (Bld) [Entitic vol] 10.3 fL 8.1 - 13.5 fL [place] Platelets (Bld) [#/Vol] 295 10*3/uL [place] RBC (Bld) [#/Vol] 4.14 10*6/uL 3.95 - 5.1 1 m/uL [place] WBC (Bld) [#/Vol] 7.8 10*3/uL [place] WBC (Bld) [#/Vol] 0.0 10*3/uL 0.0 per 10 0 WBC [place] Comprehensive Metabolic Pane riddhi 09-05-2020 Albumin [Mass/Vol] 3.9 g/dL 3.5 - 5.2 g/dL [place] Albumin/Globulin [Mass ratio] 1.3 {ratio} [place] ALP [Catalytic activity/Vol] 143 U/L High 35 - 104 U/L [place] ALT [Catalytic activity/Vol] 15 U/L 5 - 33 U/L [place] Anion gap [Moles/Vol] 12 mmol/L 9 - 17 mmol/L [place] AST [Catalytic activity/Vol] 17 U/L <32 [place] Bilirubin Ql (U) 0.32 mg/dL 0.3 - 1.2 mg/dL [place] Bun/Cre Ratio 39 [place] Calcium [Mass/Vol] 9.5 mg/dL 8.6 - 10. 4 mg/dL [place] Chloride [Moles/Vol] 100 mmol/L 98 - 10 7 mmol/L [place] CO2 [Moles/Vol] 29 mmol/L 20 - 31 mmol/L [place] Creatinine [Mass/Vol] 1.29 mg/dL High 0.5 - 0.9 mg/dL [place] GFR 48 mL/min Low >60 [place] GFR Non- 39 mL/min Low >60 [place] Glucose [Mass/Vol] 191 mg/dL High 70 - 99 mg/dL [place] Interpretation and review of laboratory results Abnormal [place] Potassium [Moles/Vol] 3.3 mmol/L Low 3.7 - 5.3 mmol/L [place] Protein [Mass/Vol] 7.0 g/dL 6.4 - 8.3 g/dL [place] Sodium [Moles/Vol] 141 mmol/L 135 - 144 mmol/L [place] Urea nitrogen [Mass/Vol] 50 mg/dL High 8 - 23 mg/dL [place] Metabolic Panelon 09-05-2020 GFR/1.73 sq M predicted among non-blacks MDRD (S/P/Bld) [Vol rate/Area] [place], [place] Comment on above: Stage 1: Some [...] body mass. Additional eGFR calculator available at: http://www.[employer].Awesome.me/multiple_crcl_2012.htm Sedimentation Rateon 020 Interpretation and review of laboratory results Abnormal [place] Sed Rate 38 mm High 0 - 20 mm [place] C-Reactive Proteinon CRP [Mass/Vol] 9.3 mg/L High 0 - 5 mg/L [place] Interpretation and review of laboratory results Abnormal [place] CBCon 08-28-2020 Erythrocyte distribution width (RBC) [Ratio] 13.5 % 11.8 - 14.4 % [place] Hematocrit (Bld) [Volume fraction] 37.9 % 36.3 - 47.1 % [place] Hemoglobin (Bld) [Mass/Vol] 11.9 g/dL 11.9 - 15.1 g/dL [place] MCH (RBC) [Entitic mass] 29.3 pg 25. 2 - 33.5 pg [place] MCHC (RBC) [Mass/Vol] 31.4 g/dL 28.4 - 34.8 g/dL [place] MCV (RBC) [Entitic vol] 93.3 fL 82.6 - 102.9 fL [place] Platelet mean volume (Bld) [Entitic vol] 10.1 fL 8.1 - 13.5 fL [place] Platelets (Bld) [#/Vol] 303 10*3/uL [place] RBC (Bld) [#/Vol] 4.06 10*6/uL 3.95 - 5.1 1 m/uL [place] WBC (Bld) [#/Vol] 6.9 10*3/uL [place] WBC (Bld) [#/Vol] 0.0 10*3/uL 0.0 per 10 0 WBC [place] Comprehensive Metabolic Pane riddhi 08-28-2020 Albumin [Mass/Vol] 3.5 g/dL 3.5 - 5.2 g/dL [place] Albumin/Globulin [Mass ratio] 1.2 {ratio} [place] ALP [Catalytic activity/Vol] 134 U/L High 35 - 104 U/L [place] ALT [Catalytic activity/Vol] 12 U/L 5 - 33 U/L [place] Anion gap [Moles/Vol] 11 mmol/L 9 - 17 mmol/L [place] AST [Catalytic activity/Vol] 14 U/L <32 [place] Bilirubin Ql (U) 0.22 mg/dL Low 0.3 - 1.2 mg/dL [place] Bun/Cre Ratio 38 High [place] Calcium [Mass/Vol] 9.1 mg/dL 8.6 - 10. 4 mg/dL [place] Chloride [Moles/Vol] 105 mmol/L 98 - 10 7 mmol/L [place] CO2 [Moles/Vol] 27 mmol/L 20 - 31 mmol/L [place] Creatinine [Mass/Vol] 1.13 mg/dL High 0.5 - 0.9 mg/dL [place] GFR 56 mL/min Low >60 [place] GFR Non- 46 mL/min Low >60 [place] Glucose [Mass/Vol] 174 mg/dL High 70 - 99 mg/dL [place] Interpretation and review of laboratory results Abnormal [place] Potassium [Moles/Vol] 3.5 mmol/L Low 3.7 - 5.3 mmol/L [place] Protein [Mass/Vol] 6.4 g/dL 6.4 - 8.3 g/dL [place] Sodium [Moles/Vol] 143 mmol/L 135 - 144 mmol/L [place] Urea nitrogen [Mass/Vol] 43 mg/dL High 8 - 23 mg/dL [place] Metabolic Panelon 08-28-2020 GFR/1.73 sq M predicted among non-blacks MDRD (S/P/Bld) [Vol rate/Area] [place] Comment on above: Average GFR for 70 o r more years old: 75 mL/min/1.73sq m Chronic Kidney Disease: <60 mL/min/1.73sq m Kidney failure: <15 mL/min/1.73sq m eGFR calculated using average adult body mass. Additional eGFR calculator available at: http://www.[employer]/multiple_crcl_2012.htm Stage 1: Some kidney damage normal GFR Stage 2: Mild kidney damage GFR 60-89 Stage 3: Moderate kidney damage GFR 30-59 Stage 4: Severe kidney damage GFR 15-29 Stage 5: Severe kidney damage GFR <15 ESRD - chronic treatment by dialysis or transplant Sedimentation Rateon 020 Interpretation and review of laboratory results Abnormal [place] Sed Rate 30 mm High 0 - 20 mm [place] Infectious Disease Office/Cl inic Noteon 08-27-2020 [...] Manuel Kathleen MD 08/29/20 09:08 EST [facility] Microscopic Urinalysison Amorphous, UA NOT REPORTED None [facility] Bacteria, UA 4+ Abnormal None [facility] Casts UA NOT REPORTED /LPF [facility] Crystals, UA 10 TO 20 Abnormal None /HPF [facility] [place] Crystals, UA TRIPLE PHOSPHATE Abnormal None /HPF [facility] Epithelial Cells UA 5 TO 10 [facility] Interpretation and review of laboratory results Abnormal [facility] Mucus, UA NOT REPORTED None [facility] Other Observations UA NOT REPORTED NOT REQ. [facility] RBC (U) [#/Vol] 20 TO 50 [facility] Renal Epithelial, UA NOT REPORTED 0 /HPF Me [facility] Trichomonas, UA NOT REPORTED None [facility] [place] WBC, UA GREATER THAN 100 [facility] Yeast, UA NOT REPORTED None [facility] - [facility] Provider Letteron 08-27-2020 Provider Letter Justino Dhaliwal DO [address] [place] [address] Re: Jesús Nolan Date of Visit: 08/27/[address] Dhaliwal, Thank you for your referral to my office. Attached you will find the most recent office visit note. Please call if you have any questions or concerns. Sincerely, Manuel Kathleen MD [address] [place] [address], [place] [address] The following document(s) were included in the letter: August 27, 2020 15:16:22 EST - (08/27/2020) Telehealth Office Visit Note [facility] Urinalysison 08-27-2020 Bilirubin Urine Negative NEGATIVE [facility] Color, UA YELLOW YELLOW [facility] Glucose, Ur Negative NEGATIVE [facility] Interpretation and review of laboratory results Abnormal [facility] Ketones Ql (U) Negative NEGATIVE [facility] Leukocyte esterase Test strip Ql (U) LARGE Abnormal NEGATIVE [facility] Nitrite, Urine Negative NEGATIVE [facility] pH, UA >=9.0 [facility] Protein (U) [Mass/Vol] 2+ Abnormal NEGATIVE [facility] [place] Specific [place], UA 1.010 [facility] Turbidity UA CLOUDY Abnormal CLEAR [facility] Urinalysis Comments NOT REPORTED [facility] Urine Hgb Negative NEGATIVE [facility] Urobilinogen, Urine Normal Normal [facility] C-Reactive Proteinon 020 CRP [Mass/Vol] 26.8 mg/L High 0 - 5 mg/L [facility] Interpretation and review of laboratory results Abnormal [facility] CBCon 08-21-2020 Erythrocyte distribution width (RBC) [Ratio] 13.7 % 11.8 - 14.4 % [facility] Hematocrit (Bld) [Volume fraction] 40.0 % 36.3 - 47.1 % [place] Hemoglobin (Bld) [Mass/Vol] 11.9 g/dL 11.9 - 15.1 g/dL [place] MCH (RBC) [Entitic mass] 29.0 pg 25. 2 - 33.5 pg [place] MCHC (RBC) [Mass/Vol] 29.8 g/dL 28.4 - 34.8 g/dL [place] MCV (RBC) [Entitic vol] 97.3 fL 82.6 - 102.9 fL [place] Platelet mean volume (Bld) [Entitic vol] 10.3 fL 8.1 - 13.5 fL [place] Platelets (Bld) [#/Vol] 380 10*3/uL [place] RBC (Bld) [#/Vol] 4.11 10*6/uL 3.95 - 5.1 1 m/uL [place] WBC (Bld) [#/Vol] 0.0 10*3/uL 0.0 per 10 0 WBC [place] WBC (Bld) [#/Vol] 6.8 10*3/uL [place] Comprehensive Metabolic Pane riddhi 08-21-2020 Albumin [Mass/Vol] 4 g/dL 3.5 - 5.2 g/dL [place] Albumin/Globulin [Mass ratio] 1.2 {ratio} [place] ALP [Catalytic activity/Vol] 143 U/L High 35 - 104 U/L [place] ALT [Catalytic activity/Vol] 13 U/L 5 - 33 U/L [place] Anion gap [Moles/Vol] 14 mmol/L 9 - 17 mmol/L [place] AST [Catalytic activity/Vol] 14 U/L <32 [place] Bilirubin Ql (U) 0.18 mg/dL Low 0.3 - 1.2 mg/dL [place] Bun/Cre Ratio 38 High [place] Calcium [Mass/Vol] 10.0 mg/dL 8.6 - 10. 4 mg/dL [place] Chloride [Moles/Vol] 102 mmol/L 98 - 10 7 mmol/L [place] CO2 [Moles/Vol] 27 mmol/L 20 - 31 mmol/L [place] Creatinine [Mass/Vol] 1.57 mg/dL High 0.5 - 0.9 mg/dL [place] GFR 38 mL/min Low >60 [place] GFR Non- 31 mL/min Low >60 [place] Glucose [Mass/Vol] 123 mg/dL High 70 - 99 mg/dL [place] Interpretation and review of laboratory results Abnormal [place] Potassium [Moles/Vol] 3.8 mmol/L 3.7 - 5.3 mmol/L [place] Protein [Mass/Vol] 7.4 g/dL 6.4 - 8.3 g/dL [place] Sodium [Moles/Vol] 143 mmol/L 135 - 144 mmol/L [place] Urea nitrogen [Mass/Vol] 60 mg/dL High 8 - 23 mg/dL [place] Metabolic Panelon 08-21-2020 GFR/1.73 sq M predicted among non-blacks MDRD (S/P/Bld) [Vol rate/Area] [place] Comment on above: Average GFR for 70 o r more years old: 75 mL/min/1.73sq m Chronic Kidney Disease: <60 mL/min/1.73sq m Kidney failure: <15 mL/min/1.73sq m eGFR calculated using average adult body mass. Additional eGFR calculator available at: http://www.[employer].Awesome.me/multiple_crcl_2012.htm Stage 1: Some kidney damage normal GFR Stage 2: Mild kidney damage GFR 60-89 Stage 3: Moderate kidney damage GFR 30-59 Stage 4: Severe kidney damage GFR 15-29 Stage 5: Severe kidney damage GFR <15 ESRD - chronic treatment by dialysis or transplant Sedimentation Rateon 020 Interpretation and review of laboratory results Abnormal [place] Sed Rate 38 mm High 0 - 20 mm [place] C-Reactive Proteinon 020 CRP [Mass/Vol] 14.9 mg/L High 0 - 5 mg/L [place] Interpretation and review of laboratory results Abnormal [place] CBCon 08-16-2020 Erythrocyte distribution width (RBC) [Ratio] 13.9 % 11.8 - 14.4 % [place] Hematocrit (Bld) [Volume fraction] 40.8 % 36.3 - 47.1 % [place] Hemoglobin (Bld) [Mass/Vol] 12.2 g/dL 11.9 - 15.1 g/dL [place] MCH (RBC) [Entitic mass] 28.8 pg 25. 2 - 33.5 pg [place] MCHC (RBC) [Mass/Vol] 29.9 g/dL 28.4 - 34.8 g/dL [place] MCV (RBC) [Entitic vol] 96.5 fL 82.6 - 102.9 fL [place] Platelet mean volume (Bld) [Entitic vol] 9.7 fL 8.1 - 13.5 fL [place] Platelets (Bld) [#/Vol] 405 10*3/uL [place] RBC (Bld) [#/Vol] 4.23 10*6/uL 3.95 - 5.1 1 m/uL [place] WBC (Bld) [#/Vol] 0.0 10*3/uL 0.0 per 10 0 WBC [place] WBC (Bld) [#/Vol] 9.7 10*3/uL [place] Comprehensive Metabolic Pane riddhi 08-16-2020 Albumin [Mass/Vol] 3.9 g/dL 3.5 - 5.2 g/dL [place] Albumin/Globulin [Mass ratio] 1.3 {ratio} [place] ALP [Catalytic activity/Vol] 143 U/L High 35 - 104 U/L [place] ALT [Catalytic activity/Vol] 13 U/L 5 - 33 U/L [place] Anion gap [Moles/Vol] 14 mmol/L 9 - 17 mmol/L [place] AST [Catalytic activity/Vol] 17 U/L <32 [place] Bilirubin Ql (U) 0.26 mg/dL Low 0.3 - 1.2 mg/dL [place] Bun/Cre Ratio 40 High [place] Calcium [Mass/Vol] 9.4 mg/dL 8.6 - 10. 4 mg/dL [place] Chloride [Moles/Vol] 102 mmol/L 98 - 10 7 mmol/L [place] CO2 [Moles/Vol] 25 mmol/L 20 - 31 mmol/L [place] Creatinine [Mass/Vol] 1.24 mg/dL High 0.5 - 0.9 mg/dL [place] GFR 50 mL/min Low >60 [place] GFR Non- 41 mL/min Low >60 [place] Glucose [Mass/Vol] 104 mg/dL High 70 - 99 mg/dL [place] Interpretation and review of laboratory results Abnormal [place] Potassium [Moles/Vol] 4.2 mmol/L 3.7 - 5.3 mmol/L [place] Protein [Mass/Vol] 7.0 g/dL 6.4 - 8.3 g/dL [place] Sodium [Moles/Vol] 141 mmol/L 135 - 144 mmol/L [place] Urea nitrogen [Mass/Vol] 49 mg/dL High 8 - 23 mg/dL [place] Metabolic Panelon 08-16-2020 GFR/1.73 sq M predicted among non-blacks MDRD (S/P/Bld) [Vol rate/Area] [place] Comment on above: Average GFR for 70 o r more years old: 75 mL/min/1.73sq m Chronic Kidney Disease: <60 mL/min/1.73sq m Kidney failure: <15 mL/min/1.73sq m eGFR calculated using average adult body mass. Additional eGFR calculator available at: http://www.[employer] Rele[employer]/multiple_crcl_2012.htm Stage 1: Some kidney damage normal GFR Stage 2: Mild kidney damage GFR 60-89 Stage 3: Moderate kidney damage GFR 30-59 Stage 4: Severe kidney damage GFR 15-29 Stage 5: Severe kidney damage GFR <15 ESRD - chronic treatment by dialysis or transplant Sedimentation Rateon 08-16-2 020 Interpretation and review of laboratory results Abnormal [place] Sed Rate 42 mm High 0 - 20 mm [place] CBCon 08-09-2020 Erythrocyte distribution width (RBC) [Ratio] 13.7 % 11.8 - 14.4 % [place] Hematocrit (Bld) [Volume fraction] 37.1 % 36.3 - 47.1 % [place] Hemoglobin (Bld) [Mass/Vol] 11.4 g/dL Low 11.9 - 15.1 g/dL [place] Interpretation and review of laboratory results Abnormal [place] MCH (RBC) [Entitic mass] 29.5 pg 25. 2 - 33.5 pg [place] MCHC (RBC) [Mass/Vol] 30.7 g/dL 28.4 - 34.8 g/dL [place] MCV (RBC) [Entitic vol] 96.1 fL 82.6 - 102.9 fL [place] Platelet mean volume (Bld) [Entitic vol] 10.0 fL 8.1 - 13.5 fL [place] Platelets (Bld) [#/Vol] 334 10*3/uL [place] RBC (Bld) [#/Vol] 3.86 10*6/uL Low 3.95 - 5.1 1 m/uL [place] WBC (Bld) [#/Vol] 10.0 10*3/uL [place] WBC (Bld) [#/Vol] 0.0 10*3/uL 0.0 per 10 0 WBC [place] Creatinine, Random Urineon 1 10-09-2019 Creatinine, Ur 25.9 mg/dL Low 28 - 217 mg/dL [place] Interpretation and review of laboratory results Abnormal [place] Ferritinon 08-09-2020 Ferritin [Mass/Vol] 179 ug/L High 13 - 150 ug/L [place] Iron and TIBCon 11-13-2020 Iron [Mass/Vol] 38 ug/dL 37 - 145 ug/dL [place] Iron Saturation 13 % Low 20 - 55 % [place] TIBC 291 ug/dL 250 - 450 ug/dL [place] UIBC 253 ug/dL 112 - 347 ug/dL [place] Magnesiumon 08-09-2020 Magnesium [Mass/Vol] 2.1 mg/dL 1.6 - 2 .6 mg/dL [place] Metabolic Panelon 08-09-2020 GFR/1.73 sq M predicted among non-blacks MDRD (S/P/Bld) [Vol rate/Area] [place] Comment on above: Average GFR for 70 o r more years old: 75 mL/min/1.73sq m Chronic Kidney Disease: <60 mL/min/1.73sq m Kidney failure: <15 mL/min/1.73sq m eGFR calculated using average adult body mass. Additional eGFR calculator available at: http://www.[employer]vant/multiple_crcl_2012.htm Stage 1: Some kidney damage normal GFR Stage 2: Mild kidney damage GFR 60-89 Stage 3: Moderate kidney damage GFR 30-59 Stage 4: Severe kidney damage GFR 15-29 Stage 5: Severe kidney damage GFR <15 ESRD - chronic treatment by dialysis or transplant Microscopic Urinalysison Amorphous, UA NOT REPORTED None [place] Bacteria, UA 1+ Abnormal None [place] Casts UA NOT REPORTED /LPF [place] Crystals, UA NOT REPORTED None /HPF [place] Epithelial Cells UA 5 TO 10 [place] Interpretation and review of laboratory results Abnormal [place] Mucus, UA NOT REPORTED None [place] Other Observations UA NOT REPORTED NOT REQ. [place] RBC (U) [#/Vol] 2 TO 5 [place] Renal Epithelial, UA NOT REPORTED 0 /HPF Me [place] Trichomonas, UA NOT REPORTED None [place] WBC, UA 10 TO 20 [place] Yeast, UA NOT REPORTED None [place] Otheron 08-09-2020 Interpretation and review of laboratory results Abnormal [place] PTH, Intacton 08-09-2020 Pth Intact 40.39 pg/mL 15 - 65 pg/mL [place] Comment on above: SAMPLES FROM PATIENT S ROUTINELY RECEIVING HIGH DOSE BIOTIN THERAPY MAY SHOW FALSELY DEPRESSED RESULTS. ADDITIONAL INFORMATION MAY BE REQUIRED FOR DIAGNOSIS. Protein, urine, randomon Protein (U) [Mass/Vol] 10 mg/dL [place] Comment on above: No normal range esta blished. Renal Function Panelon 08-09 Albumin [Mass/Vol] 3.7 g/dL 3.5 - 5.2 g/dL [place] Anion gap [Moles/Vol] 14 mmol/L 9 - 17 mmol/L [place] Bun/Cre Ratio 38 High [place] Calcium [Mass/Vol] 9.2 mg/dL 8.6 - 10. 4 mg/dL [place] Chloride [Moles/Vol] 102 mmol/L 98 - 10 7 mmol/L [place] CO2 [Moles/Vol] 24 mmol/L 20 - 31 mmol/L [place] Creatinine [Mass/Vol] 1.07 mg/dL High 0.5 - 0.9 mg/dL [place] GFR 60 mL/min Low >60 [place] GFR Non- 49 mL/min Low >60 [place] Glucose [Mass/Vol] 111 mg/dL High 70 - 99 mg/dL [place] Interpretation and review of laboratory results Abnormal [place] Phosphate [Mass/Vol] 3.2 mg/dL 2.6 - 4 .5 mg/dL [place] Potassium [Moles/Vol] 3.9 mmol/L 3.7 - 5.3 mmol/L [place] Sodium [Moles/Vol] 140 mmol/L 135 - 144 mmol/L [place] Urea nitrogen [Mass/Vol] 41 mg/dL High 8 - 23 mg/dL [place] Uric Acidon 08-09-2020 Urate [Mass/Vol] 4.5 mg/dL 2.4 - 5.7 mg/dL [place] Urinalysis Reflex to Culture on 08-09-2020 Bilirubin Urine Negative NEGATIVE [place] Color, UA YELLOW YELLOW [place] Glucose, Ur Negative NEGATIVE [place] Interpretation and review of laboratory results Abnormal [place] Ketones Ql (U) Negative NEGATIVE [place] Leukocyte esterase Test strip Ql (U) LARGE Abnormal NEGATIVE [place] Nitrite, Urine Negative NEGATIVE [place] pH, UA 7.0 [place] Protein (U) [Mass/Vol] Negative NEGATIVE [place] Specific [place], UA 1.015 [place] Turbidity UA CLEAR CLEAR [place] Urinalysis Comments NOT REPORTED [place] Urine Hgb TRACE Abnormal NEGATIVE [place] Urobilinogen, Urine Normal Normal [place] CBCon 07-18-2020 Erythrocyte distribution width (RBC) [Ratio] 14.7 % High 11.8 - 14.4 % [place] Hematocrit (Bld) [Volume fraction] 34.6 % Low 36.3 - 47.1 % [place] Hemoglobin (Bld) [Mass/Vol] 10.3 g/dL Low 11.9 - 15.1 g/dL [place] Interpretation and review of laboratory results Abnormal [place] MCH (RBC) [Entitic mass] 30.1 pg 25. 2 - 33.5 pg [place] MCHC (RBC) [Mass/Vol] 29.8 g/dL 28.4 - 34.8 g/dL [place] MCV (RBC) [Entitic vol] 101.2 fL 82.6 - 102.9 fL [place] Platelet mean volume (Bld) [Entitic vol] 9.9 fL 8.1 - 13.5 fL [place] Platelets (Bld) [#/Vol] 328 10*3/uL [place] RBC (Bld) [#/Vol] 3.42 10*6/uL Low 3.95 - 5.1 1 m/uL [place] WBC (Bld) [#/Vol] 0.0 10*3/uL 0.0 per 10 0 WBC [place] WBC (Bld) [#/Vol] 7.5 10*3/uL [place] Creatinine, Random Urineon 1 Creatinine, Ur 97.1 mg/dL 28 - 217 mg/dL [place] Magnesiumon 07-18-2020 Magnesium [Mass/Vol] 2.2 mg/dL 1.6 - 2 .6 mg/dL [place] Metabolic Panelon 07-18-2020 GFR/1.73 sq M predicted among non-blacks MDRD (S/P/Bld) [Vol rate/Area] [place] Comment on above: Average GFR for 70 o r more years old: 75 mL/min/1.73sq m Chronic Kidney Disease: <60 mL/min/1.73sq m Kidney failure: <15 mL/min/1.73sq m eGFR calculated using average adult body mass. Additional eGFR calculator available at: http://www.[employer] Relevant/multiple_crcl_2012.htm Stage 1: Some kidney damage normal GFR Stage 2: Mild kidney damage GFR 60-89 Stage 3: Moderate kidney damage GFR 30-59 Stage 4: Severe kidney damage GFR 15-29 Stage 5: Severe kidney damage GFR <15 ESRD - chronic treatment by dialysis or transplant Microscopic Urinalysison Amorphous, UA NOT REPORTED None [place] Bacteria, UA NOT REPORTED None [place] Casts UA NOT REPORTED /LPF [place] Crystals, UA CALCIUM OXALATE Abnormal None /HPF [place] Crystals, UA 0 TO 2 Abnormal None /HPF [place] Epithelial Cells UA 2 TO 5 [place] Interpretation and review of laboratory results Abnormal [place] Mucus, UA NOT REPORTED None [place] Other Observations UA NOT REPORTED NOT REQ. [place] RBC (U) [#/Vol] 0 TO 2 [place] Renal Epithelial, UA NOT REPORTED 0 /HPF [place] Trichomonas, UA NOT REPORTED None [place] WBC, UA None [place] Yeast, UA NOT REPORTED None [place] PTH, Intacton 07-18-2020 Pth Intact 58.77 pg/mL 15 - 65 pg/mL [place] Comment on above: SAMPLES FROM PATIENT S ROUTINELY RECEIVING HIGH DOSE BIOTIN THERAPY MAY SHOW FALSELY DEPRESSED RESULTS. ADDITIONAL INFORMATION MAY BE REQUIRED FOR DIAGNOSIS. Protein, urine, randomon Protein (U) [Mass/Vol] 19 mg/dL [place] Comment on above: No normal range esta blished. Renal Function Panelon 07-18 Albumin [Mass/Vol] 3.3 g/dL Low 3.5 - 5.2 g/dL [place] Anion gap [Moles/Vol] 16 mmol/L 9 - 17 mmol/L [place] Bun/Cre Ratio 27 High [place] Calcium [Mass/Vol] 8.6 mg/dL 8.6 - 10. 4 mg/dL [place] Chloride [Moles/Vol] 102 mmol/L 98 - 10 7 mmol/L [place] CO2 [Moles/Vol] 25 mmol/L 20 - 31 mmol/L [place] Creatinine [Mass/Vol] 1.17 mg/dL High 0.5 - 0.9 mg/dL [place] GFR 54 mL/min Low >60 [place] GFR Non- 44 mL/min Low >60 [place] Glucose [Mass/Vol] 97 mg/dL 70 - 99 mg/dL [place] Interpretation and review of laboratory results Abnormal [place] Phosphate [Mass/Vol] 4.3 mg/dL 2.6 - 4 .5 mg/dL [place] Potassium [Moles/Vol] 3.9 mmol/L 3.7 - 5.3 mmol/L [place] Sodium [Moles/Vol] 143 mmol/L 135 - 144 mmol/L [place] Urea nitrogen [Mass/Vol] 32 mg/dL High 8 - 23 mg/dL [place] Uric Acidon 07-18-2020 Urate [Mass/Vol] 5.1 mg/dL 2.4 - 5.7 mg/dL [place] Urinalysis Reflex to Culture on 07-18-2020 Bilirubin Urine Negative NEGATIVE [place] Color, UA YELLOW YELLOW [place] Glucose, Ur Negative NEGATIVE [place] Interpretation and review of laboratory results Abnormal [place] Ketones Ql (U) Negative NEGATIVE [place] Leukocyte esterase Test strip Ql (U) Negative NEGATIVE [place] Nitrite, Urine Negative NEGATIVE [place] pH, UA 5.5 [place] Protein (U) [Mass/Vol] Negative NEGATIVE [place] Specific [place], UA 1.025 High [place] Turbidity UA CLEAR CLEAR [place] Urinalysis Comments NOT REPORTED [place] Urine Hgb Negative NEGATIVE [place] Urobilinogen, Urine Normal Normal [place] Basic Metabolic Panelon 06-27 Anion gap [Moles/Vol] 12 mmol/L 9 - 17 mmol/L [place] Bun/Cre Ratio 35 High [place] Calcium [Mass/Vol] 8.7 mg/dL 8.6 - 10. 4 mg/dL [place] Chloride [Moles/Vol] 105 mmol/L 98 - 10 7 mmol/L [place] CO2 [Moles/Vol] 24 mmol/L 20 - 31 mmol/L [place] Creatinine [Mass/Vol] 1.02 mg/dL High 0.5 - 0.9 mg/dL [place] GFR >60 >60 mL/min [place] GFR Non- 52 mL/min Low >60 [place] Glucose [Mass/Vol] 98 mg/dL 70 - 99 mg/dL [place] Interpretation and review of laboratory results Abnormal [place] Potassium [Moles/Vol] 4.0 mmol/L 3.7 - 5.3 mmol/L [place] Sodium [Moles/Vol] 141 mmol/L 135 - 144 mmol/L [place] Urea nitrogen [Mass/Vol] 36 mg/dL High 8 - 23 mg/dL [place] Metabolic Panelon 07-09-2020 GFR/1.73 sq M predicted among non-blacks MDRD (S/P/Bld) [Vol rate/Area] [place] Comment on above: Stage 1: Some [...] body mass. Additional eGFR calculator available at: http://www.Context Relevant/multiple_crcl_2012.htm Basic Metabolic Panelon Anion gap [Moles/Vol] 11 mmol/L 9 - 17 mmol/L [place] Bun/Cre Ratio 36 High [place] Calcium [Mass/Vol] 9.0 mg/dL 8.6 - 10. 4 mg/dL [place] Chloride [Moles/Vol] 104 mmol/L 98 - 10 7 mmol/L [place] CO2 [Moles/Vol] 23 mmol/L 20 - 31 mmol/L [place] Creatinine [Mass/Vol] 1.59 mg/dL High 0.5 - 0.9 mg/dL [place] GFR 38 mL/min Low >60 [place] GFR Non- 31 mL/min Low >60 [place] Glucose [Mass/Vol] 82 mg/dL 70 - 99 mg/dL [place] Interpretation and review of laboratory results Abnormal [place] Potassium [Moles/Vol] 4.1 mmol/L 3.7 - 5.3 mmol/L [place] Sodium [Moles/Vol] 138 mmol/L 135 - 144 mmol/L [place] Urea nitrogen [Mass/Vol] 58 mg/dL High 8 - 23 mg/dL [place] Metabolic Panelon 07-01-2020 GFR/1.73 sq M predicted among non-blacks MDRD (S/P/Bld) [Vol rate/Area] [place] Comment on above: Stage 1: Some [...] body mass. Additional eGFR calculator available at: http://www.[employer]/multiple_crcl_2012.htm Basic Metabolic Panelon 05-29 Anion gap [Moles/Vol] 12 mmol/L 9 - 17 mmol/L [place] Bun/Cre Ratio 36 [place] Calcium [Mass/Vol] 8.9 mg/dL 8.6 - 10. 4 mg/dL [place] Chloride [Moles/Vol] 101 mmol/L 98 - 10 7 mmol/L [place] CO2 [Moles/Vol] 23 mmol/L 20 - 31 mmol/L [place] Creatinine [Mass/Vol] 1.34 mg/dL High 0.5 - 0.9 mg/dL [place] GFR 46 mL/min Low >60 [place] GFR Non- 38 mL/min Low >60 [place] Glucose [Mass/Vol] 112 mg/dL High 70 - 99 mg/dL [place] Interpretation and review of laboratory results Abnormal [place] Potassium [Moles/Vol] 4.5 mmol/L 3.7 - 5.3 mmol/L [place] Sodium [Moles/Vol] 136 mmol/L 135 - 144 mmol/L [place] Urea nitrogen [Mass/Vol] 48 mg/dL High 8 - 23 mg/dL [place] Infectious Disease Office/Cl inic Noteon 06-25-2020 [...] (MRI) Electronically signed by Manuel Kathleen MD 06/25/20 09:51 EDT [facility] Metabolic Panelon 06-25-2020 GFR/1.73 sq M predicted among non-blacks MDRD (S/P/Bld) [Vol rate/Area] [facility], [place] Comment on above: Stage 1: Some kidney [...] body mass. Additional eGFR calculator available at: http://www.[employer]/multiple_crcl_2012.htm Provider Letteron 06-25-2020 Provider Letter Justino Dhaliwal DO [address] [place] [id number] Re: Jesús Nolan Date of Visit: 06/25/[address] Dhaliwal, Thank you for your referral to my office. Attached you will find the most recent office visit note. Please call if you have any questions or concerns. Sincerely, Manuel Kathleen MD [address] [place] [address], [place] [address] The following document(s) were included in the letter: June 25, 2020 09:49:14 EDT - (06/25/2020) Telehealth Office Visit Note [facility] Lipid Panelon 06-19-2020 Cholesterol [Mass/Vol] 151 mg/dL <200 [facility] [place] Comment on above: Cholesterol Guidelines: <200 Desirable 200-240 Borderline >240 Undesirable Cholesterol in HDL [Mass/Vol] 58 mg/dL >40 [place] Comment on above: HDL Guidelines: <40 Undesirable 40-59 Borderline >59 Desirable Cholesterol in LDL [Mass/Vol] 72 mg/dL 0 - 130 mg/dL [place] Comment on above: LDL Guidelines: <100 Desirable 100-129 Near to/above Desirable 130-159 Borderline >159 Undesirable Direct (measured) LDL and calculated LDL are not interchangeable tests. Cholesterol in VLDL [Mass/Vol] NOT REPORTED 1 - 30 mg/dL [place] Cholesterol.total/Choles terol in HDL [Mass ratio] 2.6 {ratio} <5 [place] Triglyceride [Mass/Vol] 107 mg/dL <150 [place] Comment on above: Triglyceride Guidelines: <150 Desirable 150-199 Borderline 200-499 High >499 Very high Based on AHA Guidelines for fasting triglyceride, June 2012. C-Reactive Proteinon 020 CRP [Mass/Vol] 3.9 mg/L 0 - 5 mg/L [place] CBCon 06-12-2020 Erythrocyte distribution width (RBC) [Ratio] 17.4 % High 11.8 - 14.4 % [place] Hematocrit (Bld) [Volume fraction] 31.3 % Low 36.3 - 47.1 % [place] Hemoglobin (Bld) [Mass/Vol] 9.3 g/dL Low 11.9 - 15.1 g/dL [place] Interpretation and review of laboratory results Abnormal [place] MCH (RBC) [Entitic mass] 30.1 pg 25. 2 - 33.5 pg [place] MCHC (RBC) [Mass/Vol] 29.7 g/dL 28.4 - 34.8 g/dL [place] MCV (RBC) [Entitic vol] 101.3 fL 82.6 - 102.9 fL [place] Platelet mean volume (Bld) [Entitic vol] 9.5 fL 8.1 - 13.5 fL [place] Platelets (Bld) [#/Vol] 382 10*3/uL [place] RBC (Bld) [#/Vol] 3.09 10*6/uL Low 3.95 - 5.1 1 m/uL [place] WBC (Bld) [#/Vol] 0.0 10*3/uL 0.0 per 10 0 WBC [place] WBC (Bld) [#/Vol] 7.3 10*3/uL [place] Comprehensive Metabolic Pane riddhi 06-12-2020 Albumin [Mass/Vol] 2.9 g/dL Low 3.5 - 5.2 g/dL [place] Albumin/Globulin [Mass ratio] 1.1 {ratio} [place] ALP [Catalytic activity/Vol] 155 U/L High 35 - 104 U/L [place] ALT [Catalytic activity/Vol] 25 U/L 5 - 33 U/L [place] Anion gap [Moles/Vol] 10 mmol/L 9 - 17 mmol/L [place] AST [Catalytic activity/Vol] 22 U/L <32 [place] Bilirubin Ql (U) 0.24 mg/dL Low 0.3 - 1.2 mg/dL [place] Bun/Cre Ratio 23 High [place] Calcium [Mass/Vol] 8.6 mg/dL 8.6 - 10. 4 mg/dL [place] Chloride [Moles/Vol] 102 mmol/L 98 - 10 7 mmol/L [place] CO2 [Moles/Vol] 26 mmol/L 20 - 31 mmol/L [place] Creatinine [Mass/Vol] 1.03 mg/dL High 0.5 - 0.9 mg/dL [place] GFR >60 >60 mL/min [place] GFR Non- 51 mL/min Low >60 [place] Glucose [Mass/Vol] 110 mg/dL High 70 - 99 mg/dL [place] Interpretation and review of laboratory results Abnormal [place] Potassium [Moles/Vol] 4.1 mmol/L 3.7 - 5.3 mmol/L [place] Protein [Mass/Vol] 5.5 g/dL Low 6.4 - 8.3 g/dL [place] Sodium [Moles/Vol] 138 mmol/L 135 - 144 mmol/L [place] Urea nitrogen [Mass/Vol] 24 mg/dL High 8 - 23 mg/dL [place] Infectious Disease Office/Cl inic Noteon 06-12-2020 [...] Continue to follow-up with Dr. Yousif in [place] wound clinic. Problem List/Past Medical History Ongoing [...] (MRI) Electronically signed by Manuel Kathleen MD 06/12/20 14:48 EDT [facility] Metabolic Panelon 06-12-2020 GFR/1.73 sq M predicted among non-blacks MDRD (S/P/Bld) [Vol rate/Area] [place] Comment on above: Average GFR for 70 o r more years old: 75 mL/min/1.73sq m Chronic Kidney Disease: <60 mL/min/1.73sq m Kidney failure: <15 mL/min/1.73sq m eGFR calculated using average adult body mass. Additional eGFR calculator available at: http://www.Context Relevant/multiple_crcl_2012.htm Stage 1: Some kidney damage normal GFR Stage 2: Mild kidney damage GFR 60-89 Stage 3: Moderate kidney damage GFR 30-59 Stage 4: Severe kidney damage GFR 15-29 Stage 5: Severe kidney damage GFR <15 ESRD - chronic treatment by dialysis or transplant Sedimentation Rateon 020 Interpretation and review of laboratory results Abnormal [place] Sed Rate 54 mm High 0 - 20 mm [place] C-Reactive Proteinon 020 CRP [Mass/Vol] 6.5 mg/L High 0 - 5 mg/L [place] Interpretation and review of laboratory results Abnormal [place] CBCon 06-06-2020 Erythrocyte distribution width (RBC) [Ratio] 17.4 % High 11.8 - 14.4 % [place] Hematocrit (Bld) [Volume fraction] 30.6 % Low 36.3 - 47.1 % [place] Hemoglobin (Bld) [Mass/Vol] 9.0 g/dL Low 11.9 - 15.1 g/dL [place] Interpretation and review of laboratory results Abnormal [place] MCH (RBC) [Entitic mass] 30.2 pg 25. 2 - 33.5 pg [place] MCHC (RBC) [Mass/Vol] 29.4 g/dL 28.4 - 34.8 g/dL [place] MCV (RBC) [Entitic vol] 102.7 fL 82.6 - 102.9 fL [place] Platelet mean volume (Bld) [Entitic vol] 9.4 fL 8.1 - 13.5 fL [place] Platelets (Bld) [#/Vol] 356 10*3/uL [place] RBC (Bld) [#/Vol] 2.98 10*6/uL Low 3.95 - 5.1 1 m/uL [place] WBC (Bld) [#/Vol] 8.0 10*3/uL [place] WBC (Bld) [#/Vol] 0.0 10*3/uL 0.0 per 10 0 WBC [place] Comprehensive Metabolic Pane riddhi 06-06-2020 Albumin [Mass/Vol] 2.9 g/dL Low 3.5 - 5.2 g/dL [place] Albumin/Globulin [Mass ratio] 1.2 {ratio} [place] ALP [Catalytic activity/Vol] 170 U/L High 35 - 104 U/L [place] ALT [Catalytic activity/Vol] 13 U/L 5 - 33 U/L [place] Anion gap [Moles/Vol] 11 mmol/L 9 - 17 mmol/L [place] AST [Catalytic activity/Vol] 18 U/L <32 [place] Bilirubin Ql (U) 0.28 mg/dL Low 0.3 - 1.2 mg/dL [place] Bun/Cre Ratio 23 High [place] Calcium [Mass/Vol] 8.5 mg/dL Low 8.6 - 10. 4 mg/dL [place] Chloride [Moles/Vol] 106 mmol/L 98 - 10 7 mmol/L [place] CO2 [Moles/Vol] 23 mmol/L 20 - 31 mmol/L [place] Creatinine [Mass/Vol] 1.01 mg/dL High 0.5 - 0.9 mg/dL [place] GFR >60 >60 mL/min [place] GFR Non- 52 mL/min Low >60 [place] Glucose [Mass/Vol] 109 mg/dL High 70 - 99 mg/dL [place] Interpretation and review of laboratory results Abnormal [place] Potassium [Moles/Vol] 3.9 mmol/L 3.7 - 5.3 mmol/L [place] Protein [Mass/Vol] 5.4 g/dL Low 6.4 - 8.3 g/dL [place] Sodium [Moles/Vol] 140 mmol/L 135 - 144 mmol/L [place] Urea nitrogen [Mass/Vol] 23 mg/dL 8 - 23 mg/dL [place] Metabolic Panelon 06-06-2020 GFR/1.73 sq M predicted among non-blacks MDRD (S/P/Bld) [Vol rate/Area] [place] Comment on above: Average GFR for 70 o r more years old: 75 mL/min/1.73sq m Chronic Kidney Disease: <60 mL/min/1.73sq m Kidney failure: <15 mL/min/1.73sq m eGFR calculated using average adult body mass. Additional eGFR calculator available at: http://www.Planet [employer].Awesome.me/multiple_crcl_2012.htm Stage 1: Some kidney damage normal GFR Stage 2: Mild kidney damage GFR 60-89 Stage 3: Moderate kidney damage GFR 30-59 Stage 4: Severe kidney damage GFR 15-29 Stage 5: Severe kidney damage GFR <15 ESRD - chronic treatment by dialysis or transplant Sedimentation Rateon 020 Interpretation and review of laboratory results Abnormal [place] Sed Rate 58 mm High 0 - 20 mm [place] C-Reactive Proteinon 020 CRP [Mass/Vol] 7.6 mg/L High 0 - 5 mg/L [place] Interpretation and review of laboratory results Abnormal [place] CBC Auto Differentialon 09-0 Basophils (Bld) [#/Vol] 0.00 10*3/uL [place] Basophils/100 WBC (Bld) 0 % 0 - 2 % [place] Differential Type NOT REPORTED [place] Eosinophils (Bld) [#/Vol] 0.43 10*3/uL [place] Eosinophils/100 WBC (Bld) 8 % High 1 - 4 % [place] Erythrocyte distribution width (RBC) [Ratio] 17.0 % High 11.8 - 14.4 % [place] Hematocrit (Bld) [Volume fraction] 32.6 % Low 36.3 - 47.1 % [place] Hemoglobin (Bld) [Mass/Vol] 9.4 g/dL Low 11.9 - 15.1 g/dL [place] Immature granulocytes (Bld) [#/Vol] 1 % High 0 [place] Immature granulocytes (Bld) [#/Vol] 0.05 10*3/uL [place] Interpretation and review of laboratory results Abnormal [place] Lymphocytes (Bld) [#/Vol] 2.11 10*3/uL [place] Lymphocytes/100 WBC (Bld) 39 % 24 - 43 % [place] MCH (RBC) [Entitic mass] 29.5 pg 25. 2 - 33.5 pg [place] MCHC (RBC) [Mass/Vol] 28.8 g/dL 28.4 - 34.8 g/dL [place] MCV (RBC) [Entitic vol] 102.2 fL 82.6 - 102.9 fL [place] Monocytes (Bld) [#/Vol] 0.59 10*3/uL [place] Monocytes/100 WBC (Bld) 11 % 3 - 12 % [place] Morphology [place] (Bld) [Interp] HYPOCHROMASIA PRESENT [place] Platelet mean volume (Bld) [Entitic vol] 9.3 fL 8.1 - 13.5 fL [place] Platelets (Bld) [#/Vol] 398 10*3/uL [place] Platelets (Bld) [#/Vol] NOT REPORTED [place] RBC (Bld) [#/Vol] 3.19 10*6/uL Low 3.95 - 5.1 1 m/uL [place] RBC morphology finding Nom (Bld) NOT REPORTED [place] Segmented neutrophils/100 WBC (Bld) 41 % 36 - 65 % [place] Segs Absolute 2.22 [place] WBC (Bld) [#/Vol] 5.4 10*3/uL [place] WBC (Bld) [#/Vol] 0.0 10*3/uL 0.0 per 10 0 WBC [place] WBC Morphology NOT REPORTED [place] Comprehensive Metabolic Pane riddhi 05-30-2020 Albumin [Mass/Vol] 2.8 g/dL Low 3.5 - 5.2 g/dL [place] Albumin/Globulin [Mass ratio] 1.0 {ratio} [place] ALP [Catalytic activity/Vol] 147 U/L High 35 - 104 U/L [place] ALT [Catalytic activity/Vol] 7 U/L 5 - 33 U/L [place] Anion gap [Moles/Vol] 10 mmol/L 9 - 17 mmol/L [place] AST [Catalytic activity/Vol] 13 U/L <32 [place] Bilirubin Ql (U) 0.23 mg/dL Low 0.3 - 1.2 mg/dL [place] Bun/Cre Ratio 16 [place] Calcium [Mass/Vol] 8.5 mg/dL Low 8.6 - 10. 4 mg/dL [place] Chloride [Moles/Vol] 104 mmol/L 98 - 10 7 mmol/L [place] CO2 [Moles/Vol] 23 mmol/L 20 - 31 mmol/L [place] Creatinine [Mass/Vol] 1.3 mg/dL High 0.5 - 0.9 mg/dL [place] GFR 48 mL/min Low >60 [place] GFR Non- 39 mL/min Low >60 [place] Glucose [Mass/Vol] 101 mg/dL High 70 - 99 mg/dL [place] Interpretation and review of laboratory results Abnormal [place] Potassium [Moles/Vol] 4.1 mmol/L 3.7 - 5.3 mmol/L [place] Protein [Mass/Vol] 5.6 g/dL Low 6.4 - 8.3 g/dL [place] Sodium [Moles/Vol] 137 mmol/L 135 - 144 mmol/L [place] Urea nitrogen [Mass/Vol] 21 mg/dL 8 - 23 mg/dL [place] Metabolic Panelon 05-30-2020 GFR/1.73 sq M predicted among non-blacks MDRD (S/P/Bld) [Vol rate/Area] [place] Comment on above: Stage 1: Some [...] body mass. Additional eGFR calculator available at: http://www.Planet Met[employer].Awesome.me/multiple_crcl_2012.htm Sedimentation Rateon 020 Interpretation and review of laboratory results Abnormal [place] Sed Rate 44 mm High 0 - 20 mm [place] Infectious Disease Office/Cl inic Noteon 05-29-2020 [...] lower leg Consult with wound clinic in [place]. 3. Chronic kidney disease Continue to monitor [...] Manuel Kathleen MD 05/29/20 14:48 EDT [facility] C-Reactive Proteinon 020 CRP [Mass/Vol] 52.4 mg/L High 0 - 5 mg/L [facility], [place] Interpretation and review of laboratory results Abnormal [place] CBC Auto Differentialon 04-28 Basophils (Bld) [#/Vol] 0.03 10*3/uL [place] Basophils/100 WBC (Bld) 0 % 0 - 2 % [place] Differential Type NOT REPORTED [place] Eosinophils (Bld) [#/Vol] 0.27 10*3/uL [place] Eosinophils/100 WBC (Bld) 3 % 1 - 4 % [place] Erythrocyte distribution width (RBC) [Ratio] 16.5 % High 11.8 - 14.4 % [place] Hematocrit (Bld) [Volume fraction] 27.8 % Low 36.3 - 47.1 % [place] Hemoglobin (Bld) [Mass/Vol] 8.5 g/dL Low 11.9 - 15.1 g/dL [place] Immature granulocytes (Bld) [#/Vol] 0.09 10*3/uL [place] Immature granulocytes (Bld) [#/Vol] 1 % High 0 [place] Interpretation and review of laboratory results Abnormal [place] Lymphocytes (Bld) [#/Vol] 1.64 10*3/uL [place] Lymphocytes/100 WBC (Bld) 16 % Low 24 - 43 % [place] MCH (RBC) [Entitic mass] 30.1 pg 25. 2 - 33.5 pg [place] MCHC (RBC) [Mass/Vol] 30.6 g/dL 28.4 - 34.8 g/dL [place] MCV (RBC) [Entitic vol] 98.6 fL 82.6 - 102.9 fL [place] Monocytes (Bld) [#/Vol] 1.02 10*3/uL [place] Monocytes/100 WBC (Bld) 10 % 3 - 12 % [place] Platelet mean volume (Bld) [Entitic vol] 9.2 fL 8.1 - 13.5 fL [place] Platelets (Bld) [#/Vol] NOT REPORTED [place] Platelets (Bld) [#/Vol] 516 10*3/uL [place] RBC (Bld) [#/Vol] 2.82 10*6/uL Low 3.95 - 5.1 1 m/uL [place] RBC morphology finding Nom (Bld) NOT REPORTED [place] Segmented neutrophils/100 WBC (Bld) 70 % High 36 - 65 % [place] Segs Absolute 7.00 [place] WBC (Bld) [#/Vol] 0.0 10*3/uL 0.0 per 10 0 WBC [place] WBC (Bld) [#/Vol] 10.1 10*3/uL [place] WBC Morphology NOT REPORTED [place] Comprehensive Metabolic Pane riddhi 05-23-2020 Albumin [Mass/Vol] 3 g/dL Low 3.5 - 5.2 g/dL [place] Albumin/Globulin [Mass ratio] 1.1 {ratio} [place] ALP [Catalytic activity/Vol] 152 U/L High 35 - 104 U/L [place] ALT [Catalytic activity/Vol] 11 U/L 5 - 33 U/L [place] Anion gap [Moles/Vol] 12 mmol/L 9 - 17 mmol/L [place] AST [Catalytic activity/Vol] 27 U/L <32 [place] Bilirubin Ql (U) 0.37 mg/dL 0.3 - 1.2 mg/dL [place] Bun/Cre Ratio 10 [place] Calcium [Mass/Vol] 8.4 mg/dL Low 8.6 - 10. 4 mg/dL [place] Chloride [Moles/Vol] 103 mmol/L 98 - 10 7 mmol/L [place] CO2 [Moles/Vol] 23 mmol/L 20 - 31 mmol/L [place] Creatinine [Mass/Vol] 1.53 mg/dL High 0.5 - 0.9 mg/dL [place] GFR 39 mL/min Low >60 [place] GFR Non- 32 mL/min Low >60 [place] Glucose [Mass/Vol] 87 mg/dL 70 - 99 mg/dL [place] Interpretation and review of laboratory results Abnormal [place] Potassium [Moles/Vol] 3.7 mmol/L 3.7 - 5.3 mmol/L [place] Protein [Mass/Vol] 5.7 g/dL Low 6.4 - 8.3 g/dL [place] Sodium [Moles/Vol] 138 mmol/L 135 - 144 mmol/L [place] Urea nitrogen [Mass/Vol] 16 mg/dL 8 - 23 mg/dL [place] Metabolic Panelon 05-23-2020 GFR/1.73 sq M predicted among non-blacks MDRD (S/P/Bld) [Vol rate/Area] [place] Comment on above: Average GFR for 70 o r more years old: 75 mL/min/1.73sq m Chronic Kidney Disease: <60 mL/min/1.73sq m Kidney failure: <15 mL/min/1.73sq m eGFR calculated using average adult body mass. Additional eGFR calculator available at: http://www.Context Relevant/multiple_crcl_2012.htm Stage 1: Some kidney damage normal GFR Stage 2: Mild kidney damage GFR 60-89 Stage 3: Moderate kidney damage GFR 30-59 Stage 4: Severe kidney damage GFR 15-29 Stage 5: Severe kidney damage GFR <15 ESRD - chronic treatment by dialysis or transplant Sedimentation Rateon 020 Interpretation and review of laboratory results Abnormal [place] Sed Rate 70 mm High 0 - 20 mm [place] Infectious Disease Office/Cl inic Noteon 05-22-2020 [...] Manuel Kathleen MD 05/22/20 17:13 EDT [facility] CBC Auto Differentialon 04-28 Basophils (Bld) [#/Vol] 10*3/uL [place] Basophils/100 WBC (Bld) 0 % 0 - 2 % [place] Differential Type NOT REPORTED [place] Eosinophils (Bld) [#/Vol] 0.26 10*3/uL [place] Eosinophils/100 WBC (Bld) 3 % 1 - 4 % [place] Erythrocyte distribution width (RBC) [Ratio] 15.0 % High 11.8 - 14.4 % [place] Hematocrit (Bld) [Volume fraction] 27.8 % Low 36.3 - 47.1 % [place] Hemoglobin (Bld) [Mass/Vol] 8.4 g/dL Low 11.9 - 15.1 g/dL [place] Immature granulocytes (Bld) [#/Vol] 0.11 10*3/uL [place] Immature granulocytes (Bld) [#/Vol] 1 % High 0 [place] Interpretation and review of laboratory results Abnormal [place] Lymphocytes (Bld) [#/Vol] 1.84 10*3/uL [place] Lymphocytes/100 WBC (Bld) 19 % Low 24 - 43 % [place] MCH (RBC) [Entitic mass] 29.6 pg 25. 2 - 33.5 pg [place] MCHC (RBC) [Mass/Vol] 30.2 g/dL 28.4 - 34.8 g/dL [place] MCV (RBC) [Entitic vol] 97.9 fL 82.6 - 102.9 fL [place] Monocytes (Bld) [#/Vol] 1.08 10*3/uL [place] Monocytes/100 WBC (Bld) 11 % 3 - 12 % [place] Platelet mean volume (Bld) [Entitic vol] 9.4 fL 8.1 - 13.5 fL [place] Platelets (Bld) [#/Vol] NOT REPORTED [place] Platelets (Bld) [#/Vol] 431 10*3/uL [place] RBC (Bld) [#/Vol] 2.84 10*6/uL Low 3.95 - 5.1 1 m/uL [place] RBC morphology finding Nom (Bld) NOT REPORTED [place] Segmented neutrophils/100 WBC (Bld) 66 % High 36 - 65 % [place] Segs Absolute 6.43 [place] WBC (Bld) [#/Vol] 0.0 10*3/uL 0.0 per 10 0 WBC [place] WBC (Bld) [#/Vol] 9.7 10*3/uL [place] WBC Morphology NOT REPORTED [place] Comprehensive Metabolic Pane riddhi 05-17-2020 Albumin [Mass/Vol] 2.2 g/dL Low 3.5 - 5.2 g/dL [place] Albumin/Globulin [Mass ratio] 0.7 {ratio} Low [place] ALP [Catalytic activity/Vol] 102 U/L 35 - 104 U/L [place] ALT [Catalytic activity/Vol] 7 U/L 5 - 33 U/L [place] Anion gap [Moles/Vol] 8 mmol/L Low 9 - 17 mmol/L [place] AST [Catalytic activity/Vol] 14 U/L <32 [place] Bilirubin Ql (U) 0.27 mg/dL Low 0.3 - 1.2 mg/dL [place] Bun/Cre Ratio 17 [place] Calcium [Mass/Vol] 8.4 mg/dL Low 8.6 - 10. 4 mg/dL [place] Chloride [Moles/Vol] 100 mmol/L 98 - 10 7 mmol/L [place] CO2 [Moles/Vol] 26 mmol/L 20 - 31 mmol/L [place] Creatinine [Mass/Vol] 1.01 mg/dL High 0.5 - 0.9 mg/dL [place] GFR >60 >60 mL/min [place] GFR Non- 52 mL/min Low >60 [place] Glucose [Mass/Vol] 124 mg/dL High 70 - 99 mg/dL [place] Interpretation and review of laboratory results Abnormal [place] Potassium [Moles/Vol] 4.1 mmol/L 3.7 - 5.3 mmol/L [place] Protein [Mass/Vol] 5.2 g/dL Low 6.4 - 8.3 g/dL [place] Sodium [Moles/Vol] 134 mmol/L Low 135 - 144 mmol/L [place] Urea nitrogen [Mass/Vol] 17 mg/dL 8 - 23 mg/dL [place] Metabolic Panelon 05-17-2020 GFR/1.73 sq M predicted among non-blacks MDRD (S/P/Bld) [Vol rate/Area] [place] Comment on above: Stage 1: Some [...] body mass. Additional eGFR calculator available at: http://www.Planet Metrics.Awesome.me/multiple_crcl_2011.htm HGB,HCTon 05-15-2020 Hematocrit (Bld) [Volume fraction] 26.2 % Low 37.0-47.0 [facility] Comment on above: Performed By: #### C BCWD, BMP, ANION, EGFR1 #### [facility] [address] [place] [address] Hemoglobin (Bld) [Mass/Vol] 8.3 gm/dl Low 12.0-16.0 [facility] Comment on above: Performed By: #### C BCWD, BMP, ANION, EGFR1 #### [facility] [address] [place] [id number] Hemoglobin and hematocrit, b loodon 05-15-2020 Hematocrit (Bld) [Volume fraction] 26.2 % Low 37 - 47 % [place] Comment on above: Performed at [facility] [address] [place] [address] Hemoglobin (Bld) [Mass/Vol] 8.3 g/dL [place] Interpretation and review of laboratory results Abnormal [place] ANION GAPon 05-14-2020 Anion gap [Moles/Vol] 9.0 mmol/L Normal 8.0-16.0 [facility] Comment on above: Result Comment: ANIO N GAP = Sodium -(Chloride + CO2) Performed By: #### C BCWD, BMP, ANION, EGFR1 #### [facility] [address] [place] [id number] Anion Gapon 05-14-2020 Anion gap [Moles/Vol] 9.0 mmol/L 8 - 16 meq/L [place] Comment on above: ANION GAP = Sodium - (Chloride + CO2) Performed at [facility] [address] [place] [id number] BASIC METABOL PANELon 2019 Calcium [Mass/Vol] 7.6 mg/dL Low 8.5-10.5 [facility] Comment on above: Performed By: #### C BCWD, BMP, ANION, EGFR1 #### [facility] [address] [place] [address] Chloride [Moles/Vol] 105 mmol/L Normal 98-111 [facility] Comment on above: Performed By: #### C BCWD, BMP, ANION, EGFR1 #### [facility] [address] [place] [phone] CO2 [Moles/Vol] 24 mmol/L Normal 23-33 [facility] Comment on above: Performed By: #### C BCWD, BMP, ANION, EGFR1 #### [facility] [address] [place] [address] Creatinine [Mass/Vol] 1.1 mg/dL Normal 0.4-1.2 [facility] Comment on above: Performed By: #### C BCWD, BMP, ANION, EGFR1 #### [facility] [address] [place] [address] Glucose [Mass/Vol] 104 mg/dL Normal 70-108 [facility] Comment on above: Performed By: #### C BCWD, BMP, ANION, EGFR1 #### [facility] [address] [place] [address] Potassium [Moles/Vol] 4.0 mmol/L Normal 3.5-5.2 [facility] Comment on above: Performed By: #### C BCWD, BMP, ANION, EGFR1 #### [facility] [address] [place] [address] Sodium [Moles/Vol] 138 mmol/L Normal 135-145 [facility] Comment on above: Performed By: #### C BCWD, BMP, ANION, EGFR1 #### [facility] [address] [place] [address] Urea nitrogen [Mass/Vol] 18 mg/dL Normal 7-22 [facility] Comment on above: Performed By: #### C BCWD, BMP, ANION, EGFR1 #### [facility] [address] [place] [address] Basic Metabolic Panelon 04-27 Calcium [Mass/Vol] 7.6 mg/dL Low 8.5 - 10. 5 mg/dL [place] Comment on above: Performed at [facility] [address] [place] [address] Chloride [Moles/Vol] 105 mmol/L 98 - 11 1 meq/L [facility] CO2 [Moles/Vol] 24 mmol/L 23 - 33 meq/L [place] Creatinine [Mass/Vol] 1.1 mg/dL 0.4 - 1.2 mg/dL [place] Glucose [Mass/Vol] 104 mg/dL 70 - 108 mg/dL [facility], [place] Potassium [Moles/Vol] 4.0 mmol/L 3.5 - 5.2 meq/L [place] Sodium [Moles/Vol] 138 mmol/L 135 - 145 meq/L [place] Urea nitrogen [Mass/Vol] 18 mg/dL 7 - 22 mg/dL [place] CBC Auto Differentialon 04-27 Basophils (Bld) [#/Vol] 0.0 10*3/uL [place] Basophils/100 WBC (Bld) 0.2 % [place] Eosinophils (Bld) [#/Vol] 0.2 10*3/uL [place] Eosinophils/100 WBC (Bld) 2 % [place] Erythrocyte distribution width (RBC) [Ratio] 15.2 % High 11.5 - 14.5 % [place] Hematocrit (Bld) [Volume fraction] 23.1 % Low 37 - 47 % [place] Hemoglobin (Bld) [Mass/Vol] 7.0 g/dL Critically low [place] Immature Grans (Abs) 0.07 [place] Immature granulocytes (Bld) [#/Vol] 0.7 % [place] Interpretation and review of laboratory results Abnormal [place] Lymphocytes (Bld) [#/Vol] 2.0 10*3/uL [place] Lymphocytes/100 WBC (Bld) 19.6 % [place] MCH (RBC) [Entitic mass] 29.4 pg 26 - 33 pg [place] MCHC (RBC) [Mass/Vol] 30.3 g/dL [place] MCV (RBC) [Entitic vol] 97.1 fL 81 - 99 fL [place] Monocytes (Bld) [#/Vol] 0.9 10*3/uL [place] Monocytes/100 WBC (Bld) 8.4 % [place] Nucleated RBC/100 WBC (Bld) [Ratio] 0 % /100 wbc [place] Pathologist Review Shona VILLAFANA [place] Platelet mean volume (Bld) [Entitic vol] 9.5 fL 9.4 - 12.4 fL [place] Platelets (Bld) [#/Vol] ADEQUATE Adequate [place] Platelets (Bld) [#/Vol] 385 10*3/uL [place] RBC (Bld) [#/Vol] 2.38 10*6/uL Low [place] RDW-SD 53.4 fL High 35 - 45 fL [place] Rouleaux SLIGHT Absent [place] Comment on above: Performed at [facility] [address] [place] [address] Segmented neutrophils/100 WBC (Bld) 69.1 % [place] Segs Absolute 7.0 [place] WBC (Bld) [#/Vol] 10.2 10*3/uL [place] CBC WITH DIFFERENTIALon 04-27 PATHOLOGIST REVIEWED Shona VILLAFANA Normal [facility] Comment on above: Performed By: #### C BCWD, BMP, ANION, EGFR1 #### [facility] [address] [place] [id number] Platelets (Bld) [#/Vol] ADEQUATE Normal Adequate [facility] Comment on above: Performed By: #### C BCWD, BMP, ANION, EGFR1 #### [facility] [address] [place] [address] ROULEAUX SLIGHT Normal Absent [facility] Comment on above: Performed By: #### C BCWD, BMP, ANION, EGFR1 #### [facility] [address] [place] [id number] ABS IMMATURE GRANS (IG) 0.07 thou/mm3 Normal 0.00-0.07 [facility] Comment on above: Performed By: #### C BCWD, BMP, ANION, EGFR1 #### [facility] [address] [place] [address] ABS NEUTROPHILS 7.0 thou/mm3 Normal 1.8-7.7 [facility] Comment on above: Performed By: #### C BCWD, BMP, ANION, EGFR1 #### [facility] [address] [place] [address] Basophils (Bld) [#/Vol] 0.0 thou/mm3 Normal 0.0-0.1 [facility] Comment on above: Performed By: #### C BCWD, BMP, ANION, EGFR1 #### [address] [address] Basophils/100 WBC (Bld) 0.2 % Normal [facility] Comment on above: Performed By: #### C BCWD, BMP, ANION, EGFR1 #### [address] [address] Eosinophils (Bld) [#/Vol] 0.2 thou/mm3 Normal 0.0-0.4 [facility] Comment on above: Performed By: #### C BCWD, BMP, ANION, EGFR1 #### [place] [address] Eosinophils/100 WBC (Bld) 2.0 % Normal [facility] Comment on above: Performed By: #### C BCWD, BMP, ANION, EGFR1 #### [place] [address] Erythrocyte distribution width (RBC) [Ratio] 15.2 % High 11.5-14.5 [facility] Comment on above: Performed By: #### C BCWD, BMP, ANION, EGFR1 #### [place] [address] Hematocrit (Bld) [Volume fraction] 23.1 % Low 37.0-47.0 [facility] Comment on above: Performed By: #### C BCWD, BMP, ANION, EGFR1 #### [address] [address] Hemoglobin (Bld) [Mass/Vol] 7.0 gm/dl Critically low 12.0-16.0 [facility] Comment on above: Performed By: #### C BCWD, BMP, ANION, EGFR1 #### [place] [address] IMMATURE GRANS (IG) 0.7 % Normal [facility] Comment on above: Performed By: #### C BCWD, BMP, ANION, EGFR1 #### [facility] [address] [place] [id number] Lymphocytes (Bld) [#/Vol] 2.0 thou/mm3 Normal 1.0-4.8 [facility] Comment on above: Performed By: #### C BCWD, BMP, ANION, EGFR1 #### [address] [address] [address] Lymphocytes/100 WBC (Bld) 19.6 % Normal [facility] Comment on above: Performed By: #### C BCWD, BMP, ANION, EGFR1 #### [address] [address] MCH (RBC) [Entitic mass] 29.4 pg Normal 26.0-33.0 [facility] Comment on above: Performed By: #### C BCWD, BMP, ANION, EGFR1 #### [address] [address] MCHC (RBC) [Mass/Vol] 30.3 gm/dl Low 32.2-35.5 [facility] Comment on above: Performed By: #### C BCWD, BMP, ANION, EGFR1 #### [address] [address] MCV (RBC) [Entitic vol] 97.1 fL Normal 81.0-99.0 [facility] Comment on above: Performed By: #### C BCWD, BMP, ANION, EGFR1 #### [address] [address] Monocytes (Bld) [#/Vol] 0.9 thou/mm3 Normal 0.4-1.3 [facility] Comment on above: Performed By: #### C BCWD, BMP, ANION, EGFR1 #### [address] [address] Monocytes/100 WBC (Bld) 8.4 % Normal [facility] Comment on above: Performed By: #### C BCWD, BMP, ANION, EGFR1 #### [address] [address] Neutrophils/100 WBC (Bld) 69.1 % Normal [facility] Comment on above: Performed By: #### C BCWD, BMP, ANION, EGFR1 #### [facility] [address] [place] [address] Nucleated RBC/100 WBC (Bld) [Ratio] 0 /100 wbc Normal [facility] Comment on above: Performed By: #### C BCWD, BMP, ANION, EGFR1 #### [facility] [address] [place] [address] Platelet mean volume (Bld) [Entitic vol] 9.5 fL Normal 9.4-12.4 [facility] Comment on above: Performed By: #### C BCWD, BMP, ANION, EGFR1 #### [address] [address] Platelets (Bld) [#/Vol] 385 thou/mm3 Normal 130-400 [facility] Comment on above: Performed By: #### C BCWD, BMP, ANION, EGFR1 #### [facility] [place] [address] RBC (Bld) [#/Vol] 2.38 mill/mm3 Low 4.20-5.40 [facility] Comment on above: Performed By: #### C BCWD, BMP, ANION, EGFR1 #### [facility] [address] [place] [address] RDW-SD 53.4 fL High 35.0-45.0 [facility] Comment on above: Performed By: #### C BCWD, BMP, ANION, EGFR1 #### [place] [address] WBC (Bld) [#/Vol] 10.2 thou/mm3 Normal 4.8-10.8 [facility] Comment on above: Performed By: #### C BCWD, BMP, ANION, EGFR1 #### [facility] [address] [address] GFR, ESTIMATEDon 05-14-2020 GFR/1.73 sq M.predicted MDRD (S/P/Bld) [Vol rate/Area] 47 ml/min/1.73m2 Abnormal [facility] Comment on above: Result Comment: Aris alford [...] #### C BCWD, BMP, ANION, EGFR1 #### [facility] [address] [place] [address] Glomerular Filtration Rate, Estimatedon 05-14-2020 Est, Glom Filt Rate 47 Abnormal ml/min/1 .73 m2 [place] Comment on above: Stage Description GF [...] Vol. 139 (2) pg 137-147. Performed at [facility] [address] [address] HGB,HCTon 05-14-2020 Hematocrit (Bld) [Volume fraction] 27.1 % Low 37.0-47.0 [facility] Comment on above: Performed By: #### C BCWD, BMP, ANION, EGFR1 #### [facility] [address] [place] [address] Hemoglobin (Bld) [Mass/Vol] 8.2 gm/dl Low 12.0-16.0 [facility] Comment on above: Performed By: #### C BCWD, BMP, ANION, EGFR1 #### [facility] [address] [place] [address] Hemoglobin and hematocrit, b loodon 05-14-2020 Hematocrit (Bld) [Volume fraction] 27.1 % Low 37 - 47 % [place] Comment on above: Performed at [facility] [address] [place] [address] Hemoglobin (Bld) [Mass/Vol] 8.2 g/dL Low [place] Interpretation and review of laboratory results Abnormal [place] LEUKO-REDUCED RCon 0 -1 IRR LEUKO-REDUCED RC [id number] transfused Normal [facility] Comment on above: Performed By: #### C BCWD, BMP, ANION, EGFR1 #### [facility] [address] [place] [address] Otheron 05-14-2020 Interpretation and review of laboratory results Abnormal [place] SCAN OF BLOOD SMEARon 2019 SCAN OF BLOOD SMEAR see below Normal [facility] Comment on above: Result Comment: Crit erbarrett Exceeded; Scan of Differential Slide Performed Performed By: #### C BCWD, BMP, ANION, EGFR1 #### [facility] [address] [place] [address] Scan of Blood Smearon 2019 SCAN OF BLOOD SMEAR see below [place] Comment on above: Criteria Exceeded; S can of Differential Slide Performed Performed at [facility] [address] [place] [address] TYPE AND SCREENon 05-14-2020 ABO A [place] Rh Factor Positive [place] TYPE AND SCREEN CAPTUREon ABO CAPTURE A Normal [facility] Comment on above: Performed By: #### C BCWD, BMP, ANION, EGFR1 #### [facility] [address] [place] [address] INDIRECT AUTUMN CAPTURE Negative Normal [facility] Comment on above: Performed By: #### C BCWD, BMP, ANION, EGFR1 #### [facility] [address] [place] [address] RH CAPTURE (2 D CLONES) Positive Normal [facility] Comment on above: Performed By: #### C BCWD, BMP, ANION, EGFR1 #### [facility] [address] [place] [address] XR FOOT LEFT (MIN 3 VIEWS)on 05-14-2020 [...] Rodrick Baker MD 05/14/20 Final result Normal [facility] 1. Osteoporosis. Multifocal degenerative changes. 2. Soft tissue swelling of the foot. Questionable small erosion first metatarsal head versus cortical cyst.. Cannot exclude gout. This report has been created using voice recognition software. It may contain minor errors which are inherent in voice recognition technology. Final report electronically signed by Dr. Rodrick Baker on 05/14/2020 8:45 AM [facility] PROCEDURE: XR FOOT LEFT (MIN 3 VIEWS) [...] the first metatarsal head. Cannot exclude gout. [facility] Incoming Radiant Results From [employer] - 05/14/2020 8:47 AM EDT PROCEDURE: XR [...] Dr. Rodrick Baker on 05/14/2020 8:45 AM [place] ANION GAPon 05-13-2020 Anion gap [Moles/Vol] 10.0 mmol/L Normal 8.0-16.0 [facility] Comment on above: Result Comment: ANIO N GAP = Sodium -(Chloride + CO2) Performed By: #### C GLENN, EDITA, ANION, EGFR1 #### [facility] [address] [place] [address] Anion Gapon 05-13-2020 Anion gap [Moles/Vol] 10.0 mmol/L 8 - 16 meq/L [place] Comment on above: ANION GAP = Sodium - (Chloride + CO2) Performed at [facility] [address] [place] [address] BASIC METABOL PANELon 2019 Calcium [Mass/Vol] 7.8 mg/dL Low 8.5-10.5 [facility] Comment on above: Performed By: #### C GLENN, BMP, ANION, EGFR1 #### [facility] [address] [place] [address] Chloride [Moles/Vol] 102 mmol/L Normal 98-111 [facility] Comment on above: Performed By: #### C BCWD, BMP, ANION, EGFR1 #### [facility] [address] [place] [address] CO2 [Moles/Vol] 23 mmol/L Normal 23-33 [facility] Comment on above: Performed By: #### C BCWD, BMP, ANION, EGFR1 #### [facility] [address] [place] [address] Creatinine [Mass/Vol] 1.0 mg/dL Normal 0.4-1.2 [facility] Comment on above: Performed By: #### C BCWD, BMP, ANION, EGFR1 #### [facility] [address] [place] [address] Glucose [Mass/Vol] 151 mg/dL High 70-108 [facility] Comment on above: Performed By: #### C BCWD, BMP, ANION, EGFR1 #### [facility] [address] [place] [address] Potassium [Moles/Vol] 4.0 mmol/L Normal 3.5-5.2 [facility] Comment on above: Performed By: #### C BCWD, BMP, ANION, EGFR1 #### [facility] [address] [place] [address] Sodium [Moles/Vol] 135 mmol/L Normal 135-145 [facility] Comment on above: Performed By: #### C BCWD, BMP, ANION, EGFR1 #### [facility] [address] [place] [address] Urea nitrogen [Mass/Vol] 18 mg/dL Normal 7-22 [facility] Comment on above: Performed By: #### C BCWD, BMP, ANION, EGFR1 #### [facility] [address] [place] [address] Basic Metabolic Panelon 04-27 Calcium [Mass/Vol] 7.8 mg/dL Low 8.5 - 10. 5 mg/dL [place] Comment on above: Performed at [facility] [address] [place] [address] Chloride [Moles/Vol] 102 mmol/L 98 - 11 1 meq/L [place] CO2 [Moles/Vol] 23 mmol/L 23 - 33 meq/L [place] Creatinine [Mass/Vol] 1 mg/dL 0.4 - 1.2 mg/dL [place] Glucose [Mass/Vol] 151 mg/dL High 70 - 108 mg/dL [place] Potassium [Moles/Vol] 4.0 mmol/L 3.5 - 5.2 meq/L [place] Sodium [Moles/Vol] 135 mmol/L 135 - 145 meq/L [place] Urea nitrogen [Mass/Vol] 18 mg/dL 7 - 22 mg/dL [place] CBC Auto Differentialon 04-27 Basophils (Bld) [#/Vol] 0.0 10*3/uL [place] Basophils/100 WBC (Bld) 0.1 % [place] Eosinophils (Bld) [#/Vol] 0.1 10*3/uL [place] Eosinophils/100 WBC (Bld) 1.3 % [place] Erythrocyte distribution width (RBC) [Ratio] 15.1 % High 11.5 - 14.5 % [place] Hematocrit (Bld) [Volume fraction] 25.0 % Low 37 - 47 % [place] Hemoglobin (Bld) [Mass/Vol] 7.6 g/dL Low [place] Immature Grans (Abs) 0.12 High [place] Immature granulocytes (Bld) [#/Vol] 1 % [place] Interpretation and review of laboratory results Abnormal [place] Lymphocytes (Bld) [#/Vol] 1.5 10*3/uL [place] Lymphocytes/100 WBC (Bld) 13.4 % [place] MCH (RBC) [Entitic mass] 30.0 pg 26 - 33 pg [place] MCHC (RBC) [Mass/Vol] 30.4 g/dL [place] MCV (RBC) [Entitic vol] 98.8 fL 81 - 99 fL [place] Monocytes (Bld) [#/Vol] 0.8 10*3/uL [place] Monocytes/100 WBC (Bld) 7.3 % [place] Nucleated RBC/100 WBC (Bld) [Ratio] 0 % /100 wbc [place] Comment on above: Performed at [facility] [address] [place] [address] Platelet mean volume (Bld) [Entitic vol] 9.5 fL 9.4 - 12.4 fL [place] Platelets (Bld) [#/Vol] 396 10*3/uL [place] RBC (Bld) [#/Vol] 2.53 10*6/uL [place] RDW-SD 54.4 fL High 35 - 45 fL [place] Segmented neutrophils/100 WBC (Bld) 76.9 % [place] Segs Absolute 8.8 High [place] WBC (Bld) [#/Vol] 11.5 10*3/uL [place] CBC WITH DIFFERENTIALon 04-27 ABS IMMATURE GRANS (IG) 0.12 thou/mm3 High 0.00-0.07 [facility] Comment on above: Performed By: #### C BCWD, BMP, ANION, EGFR1 #### [facility] [address] [place] [address] ABS NEUTROPHILS 8.8 thou/mm3 High 1.8-7.7 [facility] Comment on above: Performed By: #### C BCWD, BMP, ANION, EGFR1 #### [facility] [address] [place] [address] Basophils (Bld) [#/Vol] 0.0 thou/mm3 Normal 0.0-0.1 [facility] Comment on above: Performed By: #### C BCWD, BMP, ANION, EGFR1 #### [facility] [address] [place] [address] Basophils/100 WBC (Bld) 0.1 % Normal [facility] Comment on above: Performed By: #### C BCWD, BMP, ANION, EGFR1 #### [facility] [address] [place] [address] Eosinophils (Bld) [#/Vol] 0.1 thou/mm3 Normal 0.0-0.4 [facility] Comment on above: Performed By: #### C BCWD, BMP, ANION, EGFR1 #### [facility] [address] [place] [address] Eosinophils/100 WBC (Bld) 1.3 % Normal [facility] Comment on above: Performed By: #### C BCWD, BMP, ANION, EGFR1 #### [facility] [address] [place] [address] Erythrocyte distribution width (RBC) [Ratio] 15.1 % High 11.5-14.5 [facility] Comment on above: Performed By: #### C BCWD, BMP, ANION, EGFR1 #### [address] [address] Hematocrit (Bld) [Volume fraction] 25.0 % Low 37.0-47.0 [facility] Comment on above: Performed By: #### C BCWD, BMP, ANION, EGFR1 #### [facility] [address] [place] [address] Hemoglobin (Bld) [Mass/Vol] 7.6 gm/dl Low 12.0-16.0 [facility] Comment on above: Performed By: #### C BCWD, BMP, ANION, EGFR1 #### [facility] [address] [place] [address] IMMATURE GRANS (IG) 1.0 % Normal [facility] Comment on above: Performed By: #### C BCWD, BMP, ANION, EGFR1 #### [facility] [address] [place] [address] Lymphocytes (Bld) [#/Vol] 1.5 thou/mm3 Normal 1.0-4.8 [facility] Comment on above: Performed By: #### C BCWD, BMP, ANION, EGFR1 #### [address] [address] Lymphocytes/100 WBC (Bld) 13.4 % Normal [facility] Comment on above: Performed By: #### C BCWD, BMP, ANION, EGFR1 #### [facility] [address] [place] [address] MCH (RBC) [Entitic mass] 30.0 pg Normal 26.0-33.0 [facility] Comment on above: Performed By: #### C BCWD, BMP, ANION, EGFR1 #### [address] [address] MCHC (RBC) [Mass/Vol] 30.4 gm/dl Low 32.2-35.5 [facility] Comment on above: Performed By: #### C BCWD, BMP, ANION, EGFR1 #### [place] [address] MCV (RBC) [Entitic vol] 98.8 fL Normal 81.0-99.0 [facility] Comment on above: Performed By: #### C BCWD, BMP, ANION, EGFR1 #### [place] [address] Monocytes (Bld) [#/Vol] 0.8 thou/mm3 Normal 0.4-1.3 [facility] Comment on above: Performed By: #### C BCWD, BMP, ANION, EGFR1 #### [address] [address] Monocytes/100 WBC (Bld) 7.3 % Normal [facility] Comment on above: Performed By: #### C BCWD, BMP, ANION, EGFR1 #### [address] [address] Neutrophils/100 WBC (Bld) 76.9 % Normal [facility] Comment on above: Performed By: #### C BCWD, BMP, ANION, EGFR1 #### [address] [address] Nucleated RBC/100 WBC (Bld) [Ratio] 0 /100 wbc Normal [facility] Comment on above: Performed By: #### C BCWD, BMP, ANION, EGFR1 #### [address] [address] Platelet mean volume (Bld) [Entitic vol] 9.5 fL Normal 9.4-12.4 [facility] Comment on above: Performed By: #### C BCWD, BMP, ANION, EGFR1 #### [address] [address] Platelets (Bld) [#/Vol] 396 thou/mm3 Normal 130-400 [facility] Comment on above: Performed By: #### C BCWD, BMP, ANION, EGFR1 #### [address] [address] RBC (Bld) [#/Vol] 2.53 mill/mm3 Low 4.20-5.40 [facility] Comment on above: Performed By: #### C BCWD, BMP, ANION, EGFR1 #### [address] [address] RDW-SD 54.4 fL High 35.0-45.0 [facility] Comment on above: Performed By: #### C BCWD, BMP, ANION, EGFR1 #### [address] [address] WBC (Bld) [#/Vol] 11.5 thou/mm3 High 4.8-10.8 [facility] Comment on above: Performed By: #### C BCWD, BMP, ANION, EGFR1 #### [address] [address] GFR, ESTIMATEDon 05-13-2020 GFR/1.73 sq M.predicted MDRD (S/P/Bld) [Vol rate/Area] 53 ml/min/1.73m2 Abnormal [facility] Comment on above: Result Comment: Aris alford [...] ANION, EGFR1 #### [facility] [address] [place] [address] Glomerular Filtration Rate, Estimatedon 05-13-2020 Est, Glom Filt Rate 53 Abnormal ml/min/1 .73 m2 [place] Comment on above: Stage Description GF [...] Vol. 139 (2) pg 137-147. Performed at [facility] [address] [place] [address] Otheron 05-13-2020 Interpretation and review of laboratory results Abnormal [place] ANION GAPon 05-12-2020 Anion gap [Moles/Vol] 8.0 mmol/L Normal 8.0-16.0 [facility] Comment on above: Result Comment: ANIO N GAP = Sodium -(Chloride + CO2) Performed By: #### B MP, ANION, EGFR1, CBCWD #### [facility] [address] [address] Anion Gapon 05-12-2020 Anion gap [Moles/Vol] 8.0 mmol/L 8 - 16 meq/L [place] Comment on above: ANION GAP = Sodium - (Chloride + CO2) Performed at [facility] [address] [place] [address] BASIC METABOL PANELon 2019 Calcium [Mass/Vol] 7.7 mg/dL Low 8.5-10.5 [facility] Comment on above: Performed By: #### B MP, ANION, EGFR1, CBCWD #### [facility] [address] [place] [address] Chloride [Moles/Vol] 105 mmol/L Normal 98-111 [facility] Comment on above: Performed By: #### B MP, ANION, EGFR1, CBCWD #### [facility] [address] [place] [address] CO2 [Moles/Vol] 24 mmol/L Normal 23-33 [facility] Comment on above: Performed By: #### B MP, ANION, EGFR1, CBCWD #### [facility] [address] [place] [address] Creatinine [Mass/Vol] 1.1 mg/dL Normal 0.4-1.2 [facility] Comment on above: Performed By: #### B MP, ANION, EGFR1, CBCWD #### [facility] [address] [place] [address] Glucose [Mass/Vol] 123 mg/dL High 70-108 [facility] Comment on above: Performed By: #### B MP, ANION, EGFR1, CBCWD #### [facility] [address] [place] [address] Potassium [Moles/Vol] 3.9 mmol/L Normal 3.5-5.2 [facility] Comment on above: Performed By: #### B MP, ANION, EGFR1, CBCWD #### [facility] [address] [place] [address] Sodium [Moles/Vol] 137 mmol/L Normal 135-145 [facility] Comment on above: Performed By: #### B MP, ANION, EGFR1, CBCWD #### [facility] [address] [place] [address] Urea nitrogen [Mass/Vol] 20 mg/dL Normal 7-22 [facility] Comment on above: Performed By: #### B MP, ANION, EGFR1, CBCWD #### [facility] [address] [place] [address] Basic Metabolic Panelon 04-27 Calcium [Mass/Vol] 7.7 mg/dL Low 8.5 - 10. 5 mg/dL [place] Comment on above: Performed at [facility] [address] [place] [address] Chloride [Moles/Vol] 105 mmol/L 98 - 11 1 meq/L [place] CO2 [Moles/Vol] 24 mmol/L 23 - 33 meq/L [place] Creatinine [Mass/Vol] 1.1 mg/dL 0.4 - 1.2 mg/dL [place] Glucose [Mass/Vol] 123 mg/dL High 70 - 108 mg/dL [place] Potassium [Moles/Vol] 3.9 mmol/L 3.5 - 5.2 meq/L [place] Sodium [Moles/Vol] 137 mmol/L 135 - 145 meq/L [place] Urea nitrogen [Mass/Vol] 20 mg/dL 7 - 22 mg/dL [place] Bladder scanon 05-12-2020 Dora Costa 05/12/2020 1:12 PM Bladder scan was completed by Sadie Costa at 1245pm. The residual amount of 725ml was resulted to Mirza WESLEY. [place] Flora Nesbitt 05/12/2020 12:25 AM A Bladder scan was performed at 0021 . The patient's last void was at has not voided since she was straight cathed at 15:30. The residual amount was measured to be 656 ML. Report of results was given to Missy WESLEY. [place] CBC Auto Differentialon 04-27 Basophils (Bld) [#/Vol] 0.0 10*3/uL [place] Basophils/100 WBC (Bld) 0.1 % [place] Eosinophils (Bld) [#/Vol] 0.2 10*3/uL [place] Eosinophils/100 WBC (Bld) 2.4 % [place] Erythrocyte distribution width (RBC) [Ratio] 15 % High 11.5 - 14.5 % [place] Hematocrit (Bld) [Volume fraction] 24.8 % Low 37 - 47 % [place] Hemoglobin (Bld) [Mass/Vol] 7.4 g/dL Low [place] Immature Grans (Abs) 0.06 [place] Immature granulocytes (Bld) [#/Vol] 0.6 % [place] Interpretation and review of laboratory results Abnormal [place] Lymphocytes (Bld) [#/Vol] 1.4 10*3/uL [place] Lymphocytes/100 WBC (Bld) 14.9 % [place] MCH (RBC) [Entitic mass] 29.4 pg 26 - 33 pg [place] MCHC (RBC) [Mass/Vol] 29.8 g/dL [place], [place] MCV (RBC) [Entitic vol] 98.4 fL 81 - 99 fL [place] Monocytes (Bld) [#/Vol] 0.9 10*3/uL [place] Monocytes/100 WBC (Bld) 8.9 % [place] Nucleated RBC/100 WBC (Bld) [Ratio] 0 % /100 wbc [place] Comment on above: Performed at [facility] [address] [place] [address] Platelet mean volume (Bld) [Entitic vol] 9.6 fL 9.4 - 12.4 fL [place] Platelets (Bld) [#/Vol] 370 10*3/uL [place] RBC (Bld) [#/Vol] 2.52 10*6/uL [place] RDW-SD 54 fL High 35 - 45 fL [place] Segmented neutrophils/100 WBC (Bld) 73.1 % [place] Segs Absolute 7.0 [place] WBC (Bld) [#/Vol] 9.6 10*3/uL [place] CBC WITH DIFFERENTIALon 04-27 ABS IMMATURE GRANS (IG) 0.06 thou/mm3 Normal 0.00-0.07 [facility] Comment on above: Performed By: #### B MP, ANION, EGFR1, CBCWD #### [facility] [address] [place] [address] ABS NEUTROPHILS 7.0 thou/mm3 Normal 1.8-7.7 [facility] Comment on above: Performed By: #### B MP, ANION, EGFR1, CBCWD #### [facility] [address] [place] [address] Basophils (Bld) [#/Vol] 0.0 thou/mm3 Normal 0.0-0.1 [facility] Comment on above: Performed By: #### B MP, ANION, EGFR1, CBCWD #### [facility] [address] [place] [address] Basophils/100 WBC (Bld) 0.1 % Normal [facility] Comment on above: Performed By: #### B MP, ANION, EGFR1, CBCWD #### [facility] [address] [place] [address] Eosinophils (Bld) [#/Vol] 0.2 thou/mm3 Normal 0.0-0.4 [facility] Comment on above: Performed By: #### B MP, ANION, EGFR1, CBCWD #### [address] [address] Eosinophils/100 WBC (Bld) 2.4 % Normal [facility] Comment on above: Performed By: #### B MP, ANION, EGFR1, CBCWD #### [facility] [address] [place] [address] Erythrocyte distribution width (RBC) [Ratio] 15.0 % High 11.5-14.5 [facility] Comment on above: Performed By: #### B MP, ANION, EGFR1, CBCWD #### [facility] [address] [place] [address] Hematocrit (Bld) [Volume fraction] 24.8 % Low 37.0-47.0 [facility] Comment on above: Performed By: #### B MP, ANION, EGFR1, CBCWD #### [facility] [address] [place] [address] Hemoglobin (Bld) [Mass/Vol] 7.4 gm/dl Low 12.0-16.0 [facility] Comment on above: Performed By: #### B MP, ANION, EGFR1, CBCWD #### [facility] [address] [place] [address] IMMATURE GRANS (IG) 0.6 % Normal [facility] Comment on above: Performed By: #### B MP, ANION, EGFR1, CBCWD #### [address] [address] Lymphocytes (Bld) [#/Vol] 1.4 thou/mm3 Normal 1.0-4.8 [facility] Comment on above: Performed By: #### B MP, ANION, EGFR1, CBCWD #### [address] [address] Lymphocytes/100 WBC (Bld) 14.9 % Normal [facility] Comment on above: Performed By: #### B MP, ANION, EGFR1, CBCWD #### [address] [address] MCH (RBC) [Entitic mass] 29.4 pg Normal 26.0-33.0 [facility] Comment on above: Performed By: #### B MP, ANION, EGFR1, CBCWD #### [address] [address] MCHC (RBC) [Mass/Vol] 29.8 gm/dl Low 32.2-35.5 [facility] Comment on above: Performed By: #### B MP, ANION, EGFR1, CBCWD #### [address] [address] MCV (RBC) [Entitic vol] 98.4 fL Normal 81.0-99.0 [facility] Comment on above: Performed By: #### B MP, ANION, EGFR1, CBCWD #### [address] [address] Monocytes (Bld) [#/Vol] 0.9 thou/mm3 Normal 0.4-1.3 [facility] Comment on above: Performed By: #### B MP, ANION, EGFR1, CBCWD #### [address] [address] Monocytes/100 WBC (Bld) 8.9 % Normal [facility] Comment on above: Performed By: #### B MP, ANION, EGFR1, CBCWD #### [place] [address] [place] [address] Neutrophils/100 WBC (Bld) 73.1 % Normal [facility] Comment on above: Performed By: #### B MP, ANION, EGFR1, CBCWD #### [address] [address] Nucleated RBC/100 WBC (Bld) [Ratio] 0 /100 wbc Normal [facility] Comment on above: Performed By: #### B MP, ANION, EGFR1, CBCWD #### [address] [address] Platelet mean volume (Bld) [Entitic vol] 9.6 fL Normal 9.4-12.4 [facility] Comment on above: Performed By: #### B MP, ANION, EGFR1, CBCWD #### [address] [address] Platelets (Bld) [#/Vol] 370 thou/mm3 Normal 130-400 [facility] Comment on above: Performed By: #### B MP, ANION, EGFR1, CBCWD #### [address] [address] RBC (Bld) [#/Vol] 2.52 mill/mm3 Low 4.20-5.40 [facility] Comment on above: Performed By: #### B MP, ANION, EGFR1, CBCWD #### [address] [address] RDW-SD 54.0 fL High 35.0-45.0 [facility] Comment on above: Performed By: #### B MP, ANION, EGFR1, CBCWD #### [address] [address] WBC (Bld) [#/Vol] 9.6 thou/mm3 Normal 4.8-10.8 [facility] Comment on above: Performed By: #### B MP, ANION, EGFR1, CBCWD #### [address] [address] GFR, ESTIMATEDon 05-12-2020 GFR/1.73 sq M.predicted MDRD (S/P/Bld) [Vol rate/Area] 47 ml/min/1.73m2 Abnormal [facility] Comment on above: Result Comment: Stag [...] EGFR1, CBCWD #### [facility] [address] [place] [address] Glomerular Filtration Rate, Estimatedon 05-12-2020 Est, Glom Filt Rate 47 Abnormal ml/min/1 .73 m2 [place] Comment on above: Stage Description G [...] Vol. 139 (2) pg 137-147. Performed at [facility] [address] [place] [id number] Otheron 05-12-2020 Interpretation and review of laboratory results Abnormal [place] ANION GAPon 05-11-2020 Anion gap [Moles/Vol] 11.0 mmol/L Normal 8.0-16.0 [facility] Comment on above: Result Comment: ANIO N GAP = Sodium -(Chloride + CO2) Performed By: #### C BCWD, BMP, ANION, EGFR1 #### [facility] [address] [place] [address] Anion Gapon 05-11-2020 Anion gap [Moles/Vol] 11.0 mmol/L 8 - 16 meq/L [place] Comment on above: ANION GAP = Sodium - (Chloride + CO2) Performed at [facility] [address] [place] [address] BASIC METABOL PANELon 2019 Calcium [Mass/Vol] 8.1 mg/dL Low 8.5-10.5 [facility] Comment on above: Performed By: #### C BCWD, BMP, ANION, EGFR1 #### [facility] [address] [place] [address] Chloride [Moles/Vol] 107 mmol/L Normal 98-111 [facility] Comment on above: Performed By: #### C BCWD, BMP, ANION, EGFR1 #### [facility] [address] [place] [address] 28555 CO2 [Moles/Vol] 24 mmol/L Normal 23-33 [facility] Comment on above: Performed By: #### C BCWD, BMP, ANION, EGFR1 #### [facility] [address] [place] [address] 18516 Creatinine [Mass/Vol] 1.1 mg/dL Normal 0.4-1.2 [facility] Comment on above: Performed By: #### C BCWD, BMP, ANION, EGFR1 #### [facility] [address] [place] [address] 19212 Glucose [Mass/Vol] 131 mg/dL High 70-108 [facility] Comment on above: Performed By: #### C BCWD, BMP, ANION, EGFR1 #### [facility] [address] [place] [address] 940[address] Potassium [Moles/Vol] 4.3 mmol/L Normal 3.5-5.2 [facility] Comment on above: Performed By: #### C BCWD, BMP, ANION, EGFR1 #### [facility] [address] [place] [address] 14557 Sodium [Moles/Vol] 142 mmol/L Normal 135-145 [facility] Comment on above: Performed By: #### C BCWD, BMP, ANION, EGFR1 #### [facility] [address] [place] [address] 72710 Urea nitrogen [Mass/Vol] 23 mg/dL High 7-22 [facility] Comment on above: Performed By: #### C BCWD, BMP, ANION, EGFR1 #### [facility] [address] [place] [address] Basic Metabolic Panelon 04-27 Calcium [Mass/Vol] 8.1 mg/dL Low 8.5 - 10. 5 mg/dL [place] Comment on above: Performed at [facility] [address] [place] [address] Chloride [Moles/Vol] 107 mmol/L 98 - 11 1 meq/L [place] CO2 [Moles/Vol] 24 mmol/L 23 - 33 meq/L [place] Creatinine [Mass/Vol] 1.1 mg/dL 0.4 - 1.2 mg/dL [place] Glucose [Mass/Vol] 131 mg/dL High 70 - 108 mg/dL [place] Potassium [Moles/Vol] 4.3 mmol/L 3.5 - 5.2 meq/L [place] Sodium [Moles/Vol] 142 mmol/L 135 - 145 meq/L [place] Urea nitrogen [Mass/Vol] 23 mg/dL High 7 - 22 mg/dL [place] Bladder scanon 05-11-2020 Dora Costa 05/11/2020 3:29 PM Bladder scan was completed by Sadie Costa at 1505. The residual amount of 770ml was resulted to Franca WESLEY. [place], [place] CBC Auto Differentialon 04-27 Basophils (Bld) [#/Vol] 0.0 10*3/uL [place] Basophils/100 WBC (Bld) 0.2 % [place] Eosinophils (Bld) [#/Vol] 0.1 10*3/uL [place] Eosinophils/100 WBC (Bld) 0.7 % [place] Erythrocyte distribution width (RBC) [Ratio] 15.5 % High 11.5 - 14.5 % [place] Hematocrit (Bld) [Volume fraction] 30.3 % Low 37 - 47 % [place] Hemoglobin (Bld) [Mass/Vol] 8.9 g/dL Low [place] Immature Grans (Abs) 0.05 [place] Immature granulocytes (Bld) [#/Vol] 0.5 % [place] Interpretation and review of laboratory results Abnormal [place] Lymphocytes (Bld) [#/Vol] 1.4 10*3/uL [place] Lymphocytes/100 WBC (Bld) 14.7 % [place] MCH (RBC) [Entitic mass] 29.5 pg 26 - 33 pg [place] MCHC (RBC) [Mass/Vol] 29.4 g/dL [place], [place] MCV (RBC) [Entitic vol] 100.3 fL High 81 - 99 fL [place] Monocytes (Bld) [#/Vol] 0.9 10*3/uL [place] Monocytes/100 WBC (Bld) 9.6 % [place] Nucleated RBC/100 WBC (Bld) [Ratio] 0 % /100 wbc [place] Comment on above: Performed at [facility] [address] [place] [address] Platelet mean volume (Bld) [Entitic vol] 9.5 fL 9.4 - 12.4 fL [place] Platelets (Bld) [#/Vol] 445 10*3/uL [place] RBC (Bld) [#/Vol] 3.02 10*6/uL [place] RDW-SD 57.2 fL High 35 - 45 fL [place] Segmented neutrophils/100 WBC (Bld) 74.3 % [place] Segs Absolute 7.2 [place] WBC (Bld) [#/Vol] 9.7 10*3/uL [place] CBC WITH DIFFERENTIALon 04-27 ABS IMMATURE GRANS (IG) 0.05 thou/mm3 Normal 0.00-0.07 [facility] Comment on above: Performed By: #### C BCWD, BMP, ANION, EGFR1 #### [facility] [address] [place] [address] ABS NEUTROPHILS 7.2 thou/mm3 Normal 1.8-7.7 [facility] Comment on above: Performed By: #### C BCWD, BMP, ANION, EGFR1 #### [facility] [address] [place] [address] Basophils (Bld) [#/Vol] 0.0 thou/mm3 Normal 0.0-0.1 [facility] Comment on above: Performed By: #### C BCWD, BMP, ANION, EGFR1 #### [facility] [address] [place] [address] 60676 Basophils/100 WBC (Bld) 0.2 % Normal [facility] Comment on above: Performed By: #### C BCWD, BMP, ANION, EGFR1 #### [address] [address] Eosinophils (Bld) [#/Vol] 0.1 thou/mm3 Normal 0.0-0.4 [facility] Comment on above: Performed By: #### C BCWD, BMP, ANION, EGFR1 #### [address] [address] Eosinophils/100 WBC (Bld) 0.7 % Normal [facility] Comment on above: Performed By: #### C BCWD, BMP, ANION, EGFR1 #### [address] [address] Erythrocyte distribution width (RBC) [Ratio] 15.5 % High 11.5-14.5 [facility] Comment on above: Performed By: #### C BCWD, BMP, ANION, EGFR1 #### [facility] [address] [place] [address] Hematocrit (Bld) [Volume fraction] 30.3 % Low 37.0-47.0 [facility] Comment on above: Performed By: #### C BCWD, BMP, ANION, EGFR1 #### [facility] [address] [place] [address] Hemoglobin (Bld) [Mass/Vol] 8.9 gm/dl Low 12.0-16.0 [facility] Comment on above: Performed By: #### C BCWD, BMP, ANION, EGFR1 #### [address] [address] IMMATURE GRANS (IG) 0.5 % Normal [facility] Comment on above: Performed By: #### C BCWD, BMP, ANION, EGFR1 #### [address] [address] Lymphocytes (Bld) [#/Vol] 1.4 thou/mm3 Normal 1.0-4.8 [facility] Comment on above: Performed By: #### C BCWD, BMP, ANION, EGFR1 #### [place] [address] Lymphocytes/100 WBC (Bld) 14.7 % Normal [facility] Comment on above: Performed By: #### C BCWD, BMP, ANION, EGFR1 #### [place] [address] MCH (RBC) [Entitic mass] 29.5 pg Normal 26.0-33.0 [facility] Comment on above: Performed By: #### C BCWD, BMP, ANION, EGFR1 #### [address] [address] MCHC (RBC) [Mass/Vol] 29.4 gm/dl Low 32.2-35.5 [facility] Comment on above: Performed By: #### C BCWD, BMP, ANION, EGFR1 #### [address] [address] MCV (RBC) [Entitic vol] 100.3 fL High 81.0-99.0 [facility] Comment on above: Performed By: #### C BCWD, BMP, ANION, EGFR1 #### [address] [address] Monocytes (Bld) [#/Vol] 0.9 thou/mm3 Normal 0.4-1.3 [facility] Comment on above: Performed By: #### C BCWD, BMP, ANION, EGFR1 #### [facility] [address] [place] [address] 21376 Monocytes/100 WBC (Bld) 9.6 % Normal [facility] Comment on above: Performed By: #### C BCWD, BMP, ANION, EGFR1 #### [facility] [address] [place] [address]69 Neutrophils/100 WBC (Bld) 74.3 % Normal [facility] Comment on above: Performed By: #### C BCWD, BMP, ANION, EGFR1 #### [facility] [address] [place] [address]696 Nucleated RBC/100 WBC (Bld) [Ratio] 0 /100 wbc Normal [facility] Comment on above: Performed By: #### C BCWD, BMP, ANION, EGFR1 #### [facility] [address] [address] Platelet mean volume (Bld) [Entitic vol] 9.5 fL Normal 9.4-12.4 [facility] Comment on above: Performed By: #### C BCWD, BMP, ANION, EGFR1 #### [facility] [address] [place] [address] Platelets (Bld) [#/Vol] 445 thou/mm3 High 130-400 [facility] Comment on above: Performed By: #### C BCWD, BMP, ANION, EGFR1 #### [facility] [address] [place] [address] RBC (Bld) [#/Vol] 3.02 mill/mm3 Low 4.20-5.40 [facility] Comment on above: Performed By: #### C BCWD, BMP, ANION, EGFR1 #### [facility] [address] [place] [address] RDW-SD 57.2 fL High 35.0-45.0 [facility] Comment on above: Performed By: #### C BCWD, BMP, ANION, EGFR1 #### [facility] [address] [place] [address]13 WBC (Bld) [#/Vol] 9.7 thou/mm3 Normal 4.8-10.8 [facility] Comment on above: Performed By: #### C BCWD, BMP, ANION, EGFR1 #### [facility] [address] [address] GFR, ESTIMATEDon 05-11-2020 GFR/1.73 sq M.predicted MDRD (S/P/Bld) [Vol rate/Area] 47 ml/min/1.73m2 Abnormal [facility] Comment on above: Result Comment: Stag [...] #### C BCWD, BMP, ANION, EGFR1 #### [facility] [address] [address] Glomerular Filtration Rate, Estimatedon 05-11-2020 Est, Glom Filt Rate 47 Abnormal ml/min/1 .73 m2 [place] Comment on above: Stage Description GF [...] Vol. 139 (2) pg 137-147. Performed at [facility] [address] [place] [address] 35711 Otheron 05-11-2020 Interpretation and review of laboratory results Abnormal [place] AER/ANAEROBIC CULTUREon 04-27 AER/ANAEROBIC CULTURE MICROBIOLOGY REPOR T [facility], [address] [place] [address], [address] PATIENT: JESÚS NOLAN LOCATION: [id number] [id number] -A : 1935 AGE: 84 SEX: F ADM: 05/10/20 Att. Physician: CHELE LAGOS Order Id: [id number] Req. Physician: CHELE LAGOS Source: tissue Site: [...] 8 h 5-7 >=100 Trimethoprim/Vargas <=20 S [id number]/800mgSMX q 12h 1-2TMP/[id number]/ 97SM IV 160mgTMP/800mgSMX q 8 h9TMP/105 SMX [...] 8 h 5-7 >=100 Trimethoprim/Vargas <=20 S [id number]/800mgSMX q 12h 1-2TMP/[id number]/ 97SM IV 160mgTMP/800mgSMX q 8 h9TMP/105 SMX [...] liver disease consult PDR or pharmacist. Normal [facility] COVID-19on 05-10-2020 COVID-19 BY RT-PCR NOT DETECTED Normal NOT DETECT [facility] Comment on above: Result Comment: This test [...] #### C BCWD, BMP, ANION, EGFR1 #### [facility] [address] [place] [address] SARS-CoV-2, PCR NOT DETECTED NOT DETECT [facility] [place] Comment on above: This test has been [...] or revoked sooner. METHODOLOGY: RT-PCR Performed at [facility] [address] [place] [address] TYPE AND SCREENon 05-10-2020 [facility] [place] Rh Factor Positive [facility], [place] TYPE AND SCREEN CAPTUREon ABO CAPTURE A Normal [facility] Comment on above: Performed By: #### C BCWD, BMP, ANION, EGFR1 #### [facility] [address] [place] [address] INDIRECT AUTUMN CAPTURE Negative Normal [facility] Comment on above: Performed By: #### C BCWD, BMP, ANION, EGFR1 #### [facility] [address] [place] [address] RH CAPTURE (2 D CLONES) Positive Normal S [facility] Comment on above: Performed By: #### C BCWD, BMP, ANION, EGFR1 #### [facility] [address] [place] [address] XR HIP LEFT (2-3 VIEWS)on XR HIP [...] Benson Edwards MD 05/10/20 Final result Normal [facility], [facility] Incoming Radiant Results From [facility] - 05/10/2020 3:32 PM EDT PROCEDURE: XR [...] Dr Benson Edwards on 05/10/2020 3:30 PM [place] PROCEDURE: XR HIP LE FT (2-3 [...] of the arthroplasty likely related to surgery. [place] Status post left tot al hip arthroplasty. This report has been created using voice recognition software. It may contain minor errors which are inherent in voice recognition technology. Final report electronically signed by Dr Benson Edwards on 05/10/2020 3:30 PM [place] Basic Metabolic Panelon 08- Anion gap [Moles/Vol] 10 mmol/L 9 - 17 mmol/L [place] Bun/Cre Ratio 20 [place] Calcium [Mass/Vol] 8.9 mg/dL 8.6 - 10. 4 mg/dL [place] Chloride [Moles/Vol] 105 mmol/L 98 - 10 7 mmol/L [place] CO2 [Moles/Vol] 27 mmol/L 20 - 31 mmol/L [place] Creatinine [Mass/Vol] 1.12 mg/dL High 0.5 - 0.9 mg/dL [place] GFR 56 mL/min Low >60 [place] GFR Non- 47 mL/min Low >60 [place] Glucose [Mass/Vol] 110 mg/dL High 70 - 99 mg/dL [place] Interpretation and review of laboratory results Abnormal [place] Potassium [Moles/Vol] 3.8 mmol/L 3.7 - 5.3 mmol/L [place] Sodium [Moles/Vol] 142 mmol/L 135 - 144 mmol/L [place] Urea nitrogen [Mass/Vol] 22 mg/dL 8 - 23 mg/dL [place] CBCon 05-09-2020 Erythrocyte distribution width (RBC) [Ratio] 15.5 % High 11.8 - 14.4 % [place] Hematocrit (Bld) [Volume fraction] 34.3 % Low 36.3 - 47.1 % [place] Hemoglobin (Bld) [Mass/Vol] 10.2 g/dL Low 11.9 - 15.1 g/dL [place] Interpretation and review of laboratory results Abnormal [place] MCH (RBC) [Entitic mass] 29.4 pg 25. 2 - 33.5 pg [place] MCHC (RBC) [Mass/Vol] 29.7 g/dL 28.4 - 34.8 g/dL [place] MCV (RBC) [Entitic vol] 98.8 fL 82.6 - 102.9 fL [place] Platelet mean volume (Bld) [Entitic vol] 9.4 fL 8.1 - 13.5 fL [place] Platelets (Bld) [#/Vol] 512 10*3/uL High [place] RBC (Bld) [#/Vol] 3.47 10*6/uL Low 3.95 - 5.1 1 m/uL [place] WBC (Bld) [#/Vol] 0.0 10*3/uL 0.0 per 10 0 WBC [place] WBC (Bld) [#/Vol] 8.6 10*3/uL [place] Metabolic Panelon 05-09-2020 GFR/1.73 sq M predicted among non-blacks MDRD (S/P/Bld) [Vol rate/Area] [place] Comment on above: Stage 1: Some [...] body mass. Additional eGFR calculator available at: http://www.Context Relevant/multiple_crcl_2012.htm Microscopic Urinalysison Amorphous, UA NOT REPORTED None [place] Bacteria, UA 2+ Abnormal None [place] Casts UA NOT REPORTED /LPF [place] Crystals, UA NOT REPORTED None /HPF [place] Epithelial Cells UA 0 TO 2 [place] Interpretation and review of laboratory results Abnormal [place] Mucus, UA NOT REPORTED None [place] Other Observations UA NOT REPORTED NOT REQ. [place] RBC (U) [#/Vol] 5 TO 10 [place] Renal Epithelial, UA 0 TO 2 0 /HPF [place] Trichomonas, UA NOT REPORTED None [place] WBC, UA 50 TO 100 [place] Yeast, UA NOT REPORTED None [place] Urinalysison 05-08-2020 Bilirubin Urine Negative NEGATIVE [place] Color, UA YELLOW YELLOW [place] Glucose, Ur Negative NEGATIVE [place] Interpretation and review of laboratory results Abnormal [place] Ketones Ql (U) Negative NEGATIVE [place] Leukocyte esterase Test strip Ql (U) MODERATE Abnormal NEGATIVE [place] Nitrite, Urine Negative NEGATIVE [place] pH, UA 6.5 [place] Protein (U) [Mass/Vol] TRACE Abnormal NEGATIVE [place] Specific [place], UA 1.020 [place] Turbidity UA SLIGHTLY CLOUDY Abnormal CLEAR [place] Urinalysis Comments NOT REPORTED [place] Urine Hgb 2+ Abnormal NEGATIVE [place] Urobilinogen, Urine Normal Normal [place] Basic Metabolic Panelon Anion gap [Moles/Vol] 17 mmol/L 9 - 17 mmol/L [place] Bun/Cre Ratio 20 [place] Calcium [Mass/Vol] 9.2 mg/dL 8.6 - 10. 4 mg/dL [place] Chloride [Moles/Vol] 97 mmol/L Low 98 - 10 7 mmol/L [place] CO2 [Moles/Vol] 23 mmol/L 20 - 31 mmol/L [place] Creatinine [Mass/Vol] 1.29 mg/dL High 0.5 - 0.9 mg/dL [place] GFR 48 mL/min Low >60 [place] GFR Non- 40 mL/min Low >60 [place] Glucose [Mass/Vol] 209 mg/dL High 70 - 99 mg/dL [place] Interpretation and review of laboratory results Abnormal [place] Potassium [Moles/Vol] 3.7 mmol/L 3.7 - 5.3 mmol/L [place] Sodium [Moles/Vol] 137 mmol/L 135 - 144 mmol/L [place] Urea nitrogen [Mass/Vol] 26 mg/dL High 8 - 23 mg/dL [place] CBC Auto Differentialon Basophils (Bld) [#/Vol] 10*3/uL [place] Basophils/100 WBC (Bld) 0 % 0 - 2 % [place] Differential Type NOT REPORTED [place] Eosinophils (Bld) [#/Vol] 0.17 10*3/uL [place] Eosinophils/100 WBC (Bld) 2 % 1 - 4 % [place] Erythrocyte distribution width (RBC) [Ratio] 15.3 % High 11.8 - 14.4 % [place] Hematocrit (Bld) [Volume fraction] 36.5 % 36.3 - 47.1 % [place] Hemoglobin (Bld) [Mass/Vol] 11.2 g/dL Low 11.9 - 15.1 g/dL [place] Immature granulocytes (Bld) [#/Vol] 1 % High 0 [place] Immature granulocytes (Bld) [#/Vol] 0.05 10*3/uL [place] Interpretation and review of laboratory results Abnormal [place] Lymphocytes (Bld) [#/Vol] 2.30 10*3/uL [place] Lymphocytes/100 WBC (Bld) 21 % Low 24 - 43 % [place] MCH (RBC) [Entitic mass] 30.3 pg 25. 2 - 33.5 pg [place] MCHC (RBC) [Mass/Vol] 30.7 g/dL 28.4 - 34.8 g/dL [place] MCV (RBC) [Entitic vol] 98.6 fL 82.6 - 102.9 fL [place] Monocytes (Bld) [#/Vol] 1.01 10*3/uL [place] Monocytes/100 WBC (Bld) 9 % 3 - 12 % [place] Platelet mean volume (Bld) [Entitic vol] 9.7 fL 8.1 - 13.5 fL [place] Platelets (Bld) [#/Vol] NOT REPORTED [place] Platelets (Bld) [#/Vol] 481 10*3/uL High [place] RBC (Bld) [#/Vol] 3.70 10*6/uL Low 3.95 - 5.1 1 m/uL [place] RBC morphology finding Nom (Bld) NOT REPORTED [place] Segmented neutrophils/100 WBC (Bld) 67 % High 36 - 65 % [place] Segs Absolute 7.38 [place] WBC (Bld) [#/Vol] 10.9 10*3/uL [place] WBC (Bld) [#/Vol] 0.0 10*3/uL 0.0 per 10 0 WBC [place] WBC Morphology NOT REPORTED [place] Metabolic Panelon 05-03-2020 GFR/1.73 sq M predicted among non-blacks MDRD (S/P/Bld) [Vol rate/Area] [place] Comment on above: Stage 1: Some [...] body mass. Additional eGFR calculator available at: http://www.Context Relevant/multiple_crcl_2011.htm CBC Auto Differentialon 03-27 Basophils (Bld) [#/Vol] 0.00 10*3/uL [place] Basophils/100 WBC (Bld) 0 % 0 - 2 % [place] Differential Type NOT REPORTED [place] Eosinophils (Bld) [#/Vol] 0.00 10*3/uL [place] Eosinophils/100 WBC (Bld) 0 % Low 1 - 4 % [place] Erythrocyte distribution width (RBC) [Ratio] 15.9 % High 11.8 - 14.4 % [place] Hematocrit (Bld) [Volume fraction] 36.3 % 36.3 - 47.1 % [place] Hemoglobin (Bld) [Mass/Vol] 11.0 g/dL Low 11.9 - 15.1 g/dL [place] Immature granulocytes (Bld) [#/Vol] 4 % High 0 [place] Immature granulocytes (Bld) [#/Vol] 0.51 10*3/uL [place] Interpretation and review of laboratory results Abnormal [place] Lymphocytes (Bld) [#/Vol] 1.40 10*3/uL [place] Lymphocytes/100 WBC (Bld) 11 % Low 24 - 43 % [place] MCH (RBC) [Entitic mass] 30.1 pg 25. 2 - 33.5 pg [place] MCHC (RBC) [Mass/Vol] 30.3 g/dL 28.4 - 34.8 g/dL [place] MCV (RBC) [Entitic vol] 99.5 fL 82.6 - 102.9 fL [place] Monocytes (Bld) [#/Vol] 0.76 10*3/uL [place] Monocytes/100 WBC (Bld) 6 % 3 - 12 % [place] Morphology [place] (Bld) [Interp] Normal [place] Platelet mean volume (Bld) [Entitic vol] 10.0 fL 8.1 - 13.5 fL [place] Platelets (Bld) [#/Vol] NOT REPORTED [place] Platelets (Bld) [#/Vol] 613 10*3/uL [place] RBC (Bld) [#/Vol] 3.65 10*6/uL Low 3.95 - 5.1 1 m/uL [place] RBC morphology finding Nom (Bld) NOT REPORTED [place] Segmented neutrophils/100 WBC (Bld) 79 % High 36 - 65 % [place] Segs Absolute 10.03 High [place] WBC (Bld) [#/Vol] 0.0 10*3/uL 0.0 per 10 0 WBC [place] WBC (Bld) [#/Vol] 12.7 10*3/uL [place] WBC Morphology NOT REPORTED [place] Comprehensive Metabolic Pane riddhi 04-10-2020 Albumin [Mass/Vol] 2.4 g/dL Low 3.5 - 5.2 g/dL [place] Albumin/Globulin [Mass ratio] 0.8 {ratio} Low [place] ALP [Catalytic activity/Vol] 136 U/L High 35 - 104 U/L [place] ALT [Catalytic activity/Vol] 29 U/L 5 - 33 U/L [place] Anion gap [Moles/Vol] 11 mmol/L 9 - 17 mmol/L [place] AST [Catalytic activity/Vol] 20 U/L <32 [place] Bilirubin Ql (U) 0.20 mg/dL Low 0.3 - 1.2 mg/dL [place] Bun/Cre Ratio 20 [place] Calcium [Mass/Vol] 8.2 mg/dL Low 8.6 - 10. 4 mg/dL [place] Chloride [Moles/Vol] 100 mmol/L 98 - 10 7 mmol/L [place] CO2 [Moles/Vol] 25 mmol/L 20 - 31 mmol/L [place] Creatinine [Mass/Vol] 1.11 mg/dL High 0.5 - 0.9 mg/dL [place] GFR 57 mL/min Low >60 [place] GFR Non- 47 mL/min Low >60 [place] Glucose [Mass/Vol] 135 mg/dL High 70 - 99 mg/dL [place] Interpretation and review of laboratory results Abnormal [place] Potassium [Moles/Vol] 3.6 mmol/L Low 3.7 - 5.3 mmol/L [place] Protein [Mass/Vol] 5.6 g/dL Low 6.4 - 8.3 g/dL [place] Sodium [Moles/Vol] 136 mmol/L 135 - 144 mmol/L [place] Urea nitrogen [Mass/Vol] 22 mg/dL 8 - 23 mg/dL [place] Metabolic Panelon 04-10-2020 GFR/1.73 sq M predicted among non-blacks MDRD (S/P/Bld) [Vol rate/Area] [place] Comment on above: Stage 1: Some [...] body mass. Additional eGFR calculator available at: http://www.Context Relevant/multiple_crcl_2012.htm Urinalysis with Microscopico n 04-10-2020 Amorphous, UA NOT REPORTED None [place] Bacteria, UA TRACE Abnormal None [place] Bilirubin Urine Negative NEGATIVE [place] Casts UA NOT REPORTED /LPF [place] Color, UA YELLOW YELLOW [place] Crystals, UA NOT REPORTED None /HPF [place] Epithelial Cells UA 10 TO 20 [place] Glucose, Ur Negative NEGATIVE [place] Interpretation and review of laboratory results Abnormal [place] Ketones Ql (U) Negative NEGATIVE [place] Leukocyte esterase Test strip Ql (U) Negative NEGATIVE [place] Mucus, UA NOT REPORTED None [place] Nitrite, Urine Negative NEGATIVE [place] Other Observations UA NOT REPORTED NOT REQ. [place] pH, UA 7.0 [place] Protein (U) [Mass/Vol] Negative NEGATIVE [place] RBC (U) [#/Vol] 0 TO 2 [place] Renal Epithelial, UA NOT REPORTED 0 /HPF [place] Specific [place], UA 1.015 [place] Trichomonas, UA NOT REPORTED None [place] Turbidity UA CLEAR CLEAR [place] Urinalysis Comments NOT REPORTED [place] Urine Hgb Negative NEGATIVE [place] Urobilinogen, Urine Normal Normal [place] WBC, UA 0 TO 2 [place] Yeast, UA NOT REPORTED None [place] - [place] CBC auto differentialon 03-27 Basophils (Bld) [#/Vol] 0.04 10*3/uL [place] Basophils/100 WBC (Bld) 0 % 0 - 2 % [place] Differential Type NOT REPORTED [place] Eosinophils (Bld) [#/Vol] 0.24 10*3/uL [place] Eosinophils/100 WBC (Bld) 2 % 1 - 4 % [place] Erythrocyte distribution width (RBC) [Ratio] 15.6 % High 11.8 - 14.4 % [place] Hematocrit (Bld) [Volume fraction] 29.2 % Low 36.3 - 47.1 % [place] Hemoglobin (Bld) [Mass/Vol] 8.8 g/dL Low 11.9 - 15.1 g/dL [place] Immature granulocytes (Bld) [#/Vol] 0.49 10*3/uL [place] Immature granulocytes (Bld) [#/Vol] 3 % High 0 [place] Interpretation and review of laboratory results Abnormal [place] Lymphocytes (Bld) [#/Vol] 1.99 10*3/uL [place] Lymphocytes/100 WBC (Bld) 13 % Low 24 - 43 % [place] MCH (RBC) [Entitic mass] 30.1 pg 25. 2 - 33.5 pg [place] MCHC (RBC) [Mass/Vol] 30.1 g/dL 28.4 - 34.8 g/dL [place] MCV (RBC) [Entitic vol] 100.0 fL 82.6 - 102.9 fL [place] Monocytes (Bld) [#/Vol] 1.02 10*3/uL [place] Monocytes/100 WBC (Bld) 7 % 3 - 12 % [place] Platelet mean volume (Bld) [Entitic vol] 10.7 fL 8.1 - 13.5 fL [place] Platelets (Bld) [#/Vol] NOT REPORTED [place] Platelets (Bld) [#/Vol] 444 10*3/uL [place] RBC (Bld) [#/Vol] 2.92 10*6/uL Low 3.95 - 5.1 1 m/uL [place] RBC morphology finding Nom (Bld) NOT REPORTED [place] Segmented neutrophils/100 WBC (Bld) 75 % High 36 - 65 % [place] Segs Absolute 11.50 [place] WBC (Bld) [#/Vol] 0.0 10*3/uL 0.0 per 10 0 WBC [place] WBC (Bld) [#/Vol] 15.3 10*3/uL [place] WBC Morphology NOT REPORTED [place] Comprehensive metabolic pane riddhi 04-06-2020 Albumin [Mass/Vol] 2.1 g/dL Low 3.5 - 5.2 g/dL [place] Albumin/Globulin [Mass ratio] 0.7 {ratio} Low [place] ALP [Catalytic activity/Vol] 139 U/L High 35 - 104 U/L [place] ALT [Catalytic activity/Vol] 67 U/L High 5 - 33 U/L [place] [place] Anion gap [Moles/Vol] 11 mmol/L 9 - 17 mmol/L [place] AST [Catalytic activity/Vol] 61 U/L High <32 [place] Bilirubin Ql (U) 0.34 mg/dL 0.3 - 1.2 mg/dL [place] Bun/Cre Ratio 20 [place] Calcium [Mass/Vol] 8.2 mg/dL Low 8.6 - 10. 4 mg/dL [place] Chloride [Moles/Vol] 101 mmol/L 98 - 10 7 mmol/L [place] CO2 [Moles/Vol] 25 mmol/L 20 - 31 mmol/L [place] Creatinine [Mass/Vol] 1.12 mg/dL High 0.5 - 0.9 mg/dL [place] GFR 56 mL/min Low >60 [place] GFR Non- 47 mL/min Low >60 [place] Glucose [Mass/Vol] 149 mg/dL High 70 - 99 mg/dL [place] Interpretation and review of laboratory results Abnormal [place] Potassium [Moles/Vol] 3.5 mmol/L Low 3.7 - 5.3 mmol/L [place] Protein [Mass/Vol] 5.3 g/dL Low 6.4 - 8.3 g/dL [place] Sodium [Moles/Vol] 137 mmol/L 135 - 144 mmol/L [place] Urea nitrogen [Mass/Vol] 22 mg/dL 8 - 23 mg/dL [place] Metabolic Panelon 04-06-2020 GFR/1.73 sq M predicted among non-blacks MDRD (S/P/Bld) [Vol rate/Area] [place] Comment on above: Stage 1: Some [...] body mass. Additional eGFR calculator available at: http://www.Context Relevant/multiple_crcl_2012.htm CBC auto differentialon 03-27 Basophils (Bld) [#/Vol] 10*3/uL [place] Basophils/100 WBC (Bld) 0 % 0 - 2 % [place] Differential Type NOT REPORTED [place] Eosinophils (Bld) [#/Vol] 0.05 10*3/uL [place] Eosinophils/100 WBC (Bld) 0 % Low 1 - 4 % [place] Erythrocyte distribution width (RBC) [Ratio] 15.3 % High 11.8 - 14.4 % [place] Hematocrit (Bld) [Volume fraction] 32.0 % Low 36.3 - 47.1 % [place] Hemoglobin (Bld) [Mass/Vol] 10.0 g/dL Low 11.9 - 15.1 g/dL [place] Immature granulocytes (Bld) [#/Vol] 2 % High 0 [place] Immature granulocytes (Bld) [#/Vol] 0.40 10*3/uL [place] Interpretation and review of laboratory results Abnormal [place] Lymphocytes (Bld) [#/Vol] 1.67 10*3/uL [place] Lymphocytes/100 WBC (Bld) 9 % Low 24 - 43 % [place] MCH (RBC) [Entitic mass] 30.8 pg 25. 2 - 33.5 pg [place] MCHC (RBC) [Mass/Vol] 31.3 g/dL 28.4 - 34.8 g/dL [place] MCV (RBC) [Entitic vol] 98.5 fL 82.6 - 102.9 fL [place] Monocytes (Bld) [#/Vol] 1.38 10*3/uL [place] Monocytes/100 WBC (Bld) 8 % 3 - 12 % [place] Platelet mean volume (Bld) [Entitic vol] 10.7 fL 8.1 - 13.5 fL [place] Platelets (Bld) [#/Vol] 497 10*3/uL [place] Platelets (Bld) [#/Vol] NOT REPORTED [place] RBC (Bld) [#/Vol] 3.25 10*6/uL Low 3.95 - 5.1 1 m/uL [place] RBC morphology finding Nom (Bld) NOT REPORTED [place] Segmented neutrophils/100 WBC (Bld) 81 % High 36 - 65 % [place] Segs Absolute 14.36 High [place] WBC (Bld) [#/Vol] 17.9 10*3/uL [place] WBC (Bld) [#/Vol] 0.0 10*3/uL 0.0 per 10 0 WBC [place] WBC Morphology NOT REPORTED [place] COVID-19on 04-05-2020 SARS-CoV-2 [place] SARS-CoV-2, PCR [place] SARS-CoV-2, Rapid Not Detected Not Detected [place] Comment on above: Rapid NAAT: The [...] management decisions. Fact sheet for Healthcare Providers: https://www.fda.gov/media/974620/download Fact sheet for Patients: https://www.fda.gov/media/859369/download Methodology: Isothermal Nucleic Acid Amplification Source .NASOPHARYNGEAL SWAB [place] Comprehensive metabolic pane riddhi 04-05-2020 Albumin [Mass/Vol] 2.5 g/dL Low 3.5 - 5.2 g/dL [place] Albumin/Globulin [Mass ratio] 0.7 {ratio} Low [place] ALP [Catalytic activity/Vol] 137 U/L High 35 - 104 U/L [place] ALT [Catalytic activity/Vol] 76 U/L High 5 - 33 U/L [place] Anion gap [Moles/Vol] 16 mmol/L 9 - 17 mmol/L [place] AST [Catalytic activity/Vol] 73 U/L High <32 [place] Bilirubin Ql (U) 0.41 mg/dL 0.3 - 1.2 mg/dL [place] Bun/Cre Ratio 21 [place] Calcium [Mass/Vol] 8.4 mg/dL Low 8.6 - 10. 4 mg/dL [place] Chloride [Moles/Vol] 102 mmol/L 98 - 10 7 mmol/L [place] CO2 [Moles/Vol] 24 mmol/L 20 - 31 mmol/L [place] Creatinine [Mass/Vol] 1.16 mg/dL High 0.5 - 0.9 mg/dL [place] GFR 54 mL/min Low >60 [place] GFR Non- 45 mL/min Low >60 [place] Glucose [Mass/Vol] 128 mg/dL High 70 - 99 mg/dL [place] Interpretation and review of laboratory results Abnormal [place] Potassium [Moles/Vol] 3.3 mmol/L Low 3.7 - 5.3 mmol/L [place] Protein [Mass/Vol] 6.3 g/dL Low 6.4 - 8.3 g/dL [place] Sodium [Moles/Vol] 142 mmol/L 135 - 144 mmol/L [place] Urea nitrogen [Mass/Vol] 24 mg/dL High 8 - 23 mg/dL [place] Metabolic Panelon 04-05-2020 GFR/1.73 sq M predicted among non-blacks MDRD (S/P/Bld) [Vol rate/Area] [place] Comment on above: Stage 1: Some [...] body mass. Additional eGFR calculator available at: http://www.[employer].Awesome.me/multiple_crcl_2012.htm Basic Metabolic Panel w/ Ref tosha to MGon 04-03-2020 Anion gap [Moles/Vol] 18 mmol/L High 9 - 17 mmol/L [place] Bun/Cre Ratio 26 [place] Calcium [Mass/Vol] 9.0 mg/dL 8.6 - 10. 4 mg/dL [place] Chloride [Moles/Vol] 96 mmol/L Low 98 - 10 7 mmol/L [place] CO2 [Moles/Vol] 26 mmol/L 20 - 31 mmol/L [place] Creatinine [Mass/Vol] 1.17 mg/dL High 0.5 - 0.9 mg/dL [place] GFR 54 mL/min Low >60 [place] GFR Non- 44 mL/min Low >60 [place] Glucose [Mass/Vol] 157 mg/dL High 70 - 99 mg/dL [place] Interpretation and review of laboratory results Abnormal [place] Potassium [Moles/Vol] 3.5 mmol/L Low 3.7 - 5.3 mmol/L [place] Sodium [Moles/Vol] 140 mmol/L 135 - 144 mmol/L [place] Urea nitrogen [Mass/Vol] 30 mg/dL High 8 - 23 mg/dL [place] CBCon 04-03-2020 Erythrocyte distribution width (RBC) [Ratio] 14.9 % High 11.8 - 14.4 % [place] Hematocrit (Bld) [Volume fraction] 34.0 % Low 36.3 - 47.1 % [place] Hemoglobin (Bld) [Mass/Vol] 10.8 g/dL Low 11.9 - 15.1 g/dL [place] Interpretation and review of laboratory results Abnormal [place] MCH (RBC) [Entitic mass] 30.9 pg 25. 2 - 33.5 pg [place] MCHC (RBC) [Mass/Vol] 31.8 g/dL 28.4 - 34.8 g/dL [place] MCV (RBC) [Entitic vol] 97.4 fL 82.6 - 102.9 fL [place] Platelet mean volume (Bld) [Entitic vol] 10.6 fL 8.1 - 13.5 fL [place] Platelets (Bld) [#/Vol] 455 10*3/uL [place] RBC (Bld) [#/Vol] 3.49 10*6/uL Low 3.95 - 5.1 1 m/uL [place] WBC (Bld) [#/Vol] 17.6 10*3/uL [place] WBC (Bld) [#/Vol] 0.0 10*3/uL 0.0 per 10 0 WBC [place] EKG 12 Leadon 04-03-2020 Atrial Rate 78 BPM [place] P [place] 90 degrees [place] P-R Interval 174 ms [place] Q-T Interval 426 ms [place] QRS Duration 114 ms [place] QTc Calculation (Bazett) 485 ms [place] R [place] -27 degrees [place], [place] T [place] 61 degrees [place] Urea nitrogen [Mass/Vol] Sinus rhythm wi th Premature atrial complexes Incomplete left bundle branch block Left ventricular hypertrophy with repolarization abnormality Abnormal ECG When compared with ECG of 02-APR-2020 14:43, Premature atrial complexes are now Present Minimal criteria for Septal infarct are no longer Present Confirmed by Sadie GRACE MD ([id number]) on 04/03/2020 7:17:15 AM [place] Ventricular Rate 78 BPM [place], Mhpn Incoming E kg Results From Ge Doniphan - 04/03/2020 7:17 AM EDT Sinus rhythm with Premature atrial complexes Incomplete left bundle branch block Left ventricular hypertrophy with repolarization abnormality Abnormal ECG When compared with ECG of 02-APR-2020 14:43, Premature atrial complexes are now Present Minimal criteria for Septal infarct are no longer Present Confirmed by Sadie GRACE MD [id number]) on 04/03/2020 7:17:15 AM [place] Lactic acid, plasmaon 2019 Lactate [Moles/Vol] 1.9 mmol/L 0.5 - 2. 2 mmol/L [place] Lactic Acid, Whole Blood NOT REPORTED 0.7 - 2.1 mmol/L [place] Magnesiumon 04-03-2020 Magnesium [Mass/Vol] 1.9 mg/dL 1.6 - 2 .6 mg/dL [place] Metabolic Panelon 04-03-2020 GFR/1.73 sq M predicted among non-blacks MDRD (S/P/Bld) [Vol rate/Area] [place] Comment on above: Stage 1: Some [...] body mass. Additional eGFR calculator available at: http://www.Context Relevant/multiple_crcl_2012.htm Basic Metabolic Panelon Anion gap [Moles/Vol] 16 mmol/L 9 - 17 mmol/L [place] Bun/Cre Ratio 26 [place] Calcium [Mass/Vol] 8.9 mg/dL 8.6 - 10. 4 mg/dL [place] Chloride [Moles/Vol] 92 mmol/L Low 98 - 10 7 mmol/L [place] CO2 [Moles/Vol] 29 mmol/L 20 - 31 mmol/L [place] Creatinine [Mass/Vol] 1.41 mg/dL High 0.5 - 0.9 mg/dL [place] GFR 43 mL/min Low >60 [place] GFR Non- 36 mL/min Low >60 [place] Glucose [Mass/Vol] 200 mg/dL High 70 - 99 mg/dL [place] Interpretation and review of laboratory results Abnormal [place] Potassium [Moles/Vol] 2.9 mmol/L Critically low 3.7 - 5.3 mmol/L [place] Sodium [Moles/Vol] 137 mmol/L 135 - 144 mmol/L [place] Urea nitrogen [Mass/Vol] 37 mg/dL High 8 - 23 mg/dL [place] Basic Metabolic Panel w/ Ref tosha to MGon 04-02-2020 Anion gap [Moles/Vol] 15 mmol/L 9 - 17 mmol/L [place] Bun/Cre Ratio 26 High [place] Calcium [Mass/Vol] 8.6 mg/dL 8.6 - 10. 4 mg/dL [place] Chloride [Moles/Vol] 96 mmol/L Low 98 - 10 7 mmol/L [place] CO2 [Moles/Vol] 28 mmol/L 20 - 31 mmol/L [place] Creatinine [Mass/Vol] 1.33 mg/dL High 0.5 - 0.9 mg/dL [place] GFR 46 mL/min Low >60 [place] GFR Non- 38 mL/min Low >60 [place] Glucose [Mass/Vol] 149 mg/dL High 70 - 99 mg/dL [place] Interpretation and review of laboratory results Abnormal [place] Potassium [Moles/Vol] 3.4 mmol/L Low 3.7 - 5.3 mmol/L [place] Sodium [Moles/Vol] 139 mmol/L 135 - 144 mmol/L [place] Urea nitrogen [Mass/Vol] 35 mg/dL High 8 - 23 mg/dL [place] CBC Auto Differentialon 0 Basophils (Bld) [#/Vol] 10*3/uL [place] Basophils/100 WBC (Bld) 0 % 0 - 2 % [place], [place] Differential Type NOT REPORTED [place] Eosinophils (Bld) [#/Vol] 10*3/uL [place] Eosinophils/100 WBC (Bld) 0 % Low 1 - 4 % [place] Erythrocyte distribution width (RBC) [Ratio] 14.7 % High 11.8 - 14.4 % [place] Hematocrit (Bld) [Volume fraction] 32.6 % Low 36.3 - 47.1 % [place] Hemoglobin (Bld) [Mass/Vol] 10.5 g/dL Low 11.9 - 15.1 g/dL [place] Immature granulocytes (Bld) [#/Vol] 1 % High 0 [place] Immature granulocytes (Bld) [#/Vol] 0.15 10*3/uL [place] Interpretation and review of laboratory results Abnormal [place] Lymphocytes (Bld) [#/Vol] 1.25 10*3/uL [place] Lymphocytes/100 WBC (Bld) 7 % Low 24 - 43 % [place] MCH (RBC) [Entitic mass] 30.7 pg 25. 2 - 33.5 pg [place] MCHC (RBC) [Mass/Vol] 32.2 g/dL 28.4 - 34.8 g/dL [place] MCV (RBC) [Entitic vol] 95.3 fL 82.6 - 102.9 fL [place] Monocytes (Bld) [#/Vol] 1.50 10*3/uL [place] Monocytes/100 WBC (Bld) 9 % 3 - 12 % [place] Platelet mean volume (Bld) [Entitic vol] 10.8 fL 8.1 - 13.5 fL [place] Platelets (Bld) [#/Vol] NOT REPORTED [place] Platelets (Bld) [#/Vol] 401 10*3/uL [place] RBC (Bld) [#/Vol] 3.42 10*6/uL Low 3.95 - 5.1 1 m/uL [place] RBC morphology finding Nom (Bld) NOT REPORTED [place] Segmented neutrophils/100 WBC (Bld) 83 % High 36 - 65 % [place] Segs Absolute 14.35 High [place] WBC (Bld) [#/Vol] 17.3 10*3/uL [place] WBC (Bld) [#/Vol] 0.0 10*3/uL 0.0 per 10 0 WBC [place] WBC Morphology NOT REPORTED [place] EKG 12 Leadon 04-02-2020 Atrial Rate 73 BPM [place] P [place] 90 degrees [place] P-R Interval 192 ms [place] Q-T Interval 430 ms [place] QRS Duration 108 ms [place] QTc Calculation (Bazett) 473 ms [place] R [place] -33 degrees [place], [place] T [place] 50 degrees [place] Ventricular Rate 73 BPM [place] Normal sinus rhythm Left axis deviation Pulmonary disease pattern Left ventricular hypertrophy with repolarization abnormality Cannot rule out Septal infarct (cited on or before 30-JUN-2001) Abnormal ECG When compared with ECG of 11-NOV-2011 11:12, QRS duration has increased Questionable change in initial forces of Anterior leads Confirmed by Sadie GRACE MD ([id number]) on 04/02/2020 4:19:24 PM [place], Mhpn Incoming E kg Results From YABUY Doniphan - 04/02/2020 4:19 PM EDT Normal sinus rhythm Left axis deviation Pulmonary disease pattern Left ventricular hypertrophy with repolarization abnormality Cannot rule out Septal infarct (cited on or before 30-JUN-2001) Abnormal ECG When compared with ECG of 11-NOV-2011 11:12, QRS duration has increased Questionable change in initial forces of Anterior leads Confirmed by Sadie GRACE MD ([id number]) on 04/02/2020 4:19:24 PM [place] Magnesiumon 04-02-2020 Magnesium [Mass/Vol] 2.0 mg/dL 1.6 - 2 .6 mg/dL [place] Metabolic Panelon 04-02-2020 GFR/1.73 sq M predicted among non-blacks MDRD (S/P/Bld) [Vol rate/Area] [place] Comment on above: Average GFR for 70 o r more years old: 75 mL/min/1.73sq m Chronic Kidney Disease: <60 mL/min/1.73sq m Kidney failure: <15 mL/min/1.73sq m eGFR calculated using average adult body mass. Additional eGFR calculator available at: http://www.Context Relevant/multiple_crcl_2012.htm Stage 1: Some kidney damage normal GFR Stage 2: Mild kidney damage GFR 60-89 Stage 3: Moderate kidney damage GFR 30-59 Stage 4: Severe kidney damage GFR 15-29 Stage 5: Severe kidney damage GFR <15 ESRD - chronic treatment by dialysis or transplant GFR/1.73 sq M predicted among non-blacks MDRD (S/P/Bld) [Vol rate/Area] [place] Comment on above: Average GFR for 70 o r more years old: 75 mL/min/1.73sq m Chronic Kidney Disease: <60 mL/min/1.73sq m Kidney failure: <15 mL/min/1.73sq m eGFR calculated using average adult body mass. Additional eGFR calculator available at: http://www.Context Relevant/multiple_crcl_2012.htm Stage 1: Some kidney damage normal GFR Stage 2: Mild kidney damage GFR 60-89 Stage 3: Moderate kidney damage GFR 30-59 Stage 4: Severe kidney damage GFR 15-29 Stage 5: Severe kidney damage GFR <15 ESRD - chronic treatment by dialysis or transplant Troponinon 04-02-2020 Interpretation and review of laboratory results Abnormal [place] Troponin I.cardiac [Mass/Vol] NOT REPORTED [place] Troponin T.cardiac [Mass/Vol] NOT REPORTED <0.03 ng/mL [place] Troponin, High Sensitivity 44 ng/L High 0 - 14 ng/L [place] Comment on above: High Sensitivity Troponin values cannot be compared with other Troponin methodologies. Patients with high levels of Biotin oral intake (i.e >5mg/day) may have falsely decreased Troponin levels. Samples collected within 8 hours of biotin intake may require additional information for diagnosis. Interpretation and review of laboratory results Abnormal [place] Troponin I.cardiac [Mass/Vol] NOT REPORTED [place] Troponin T.cardiac [Mass/Vol] NOT REPORTED <0.03 ng/mL [place] Troponin, High Sensitivity 47 ng/L High 0 - 14 ng/L [place] Comment on above: High Sensitivity Troponin values cannot be compared with other Troponin methodologies. Patients with high levels of Biotin oral intake (i.e >5mg/day) may have falsely decreased Troponin levels. Samples collected within 8 hours of biotin intake may require additional information for diagnosis. Urinalysis with Microscopico n 04-02-2020 Amorphous, UA NOT REPORTED None [place] Bacteria, UA 4+ Abnormal None [place] Bilirubin Urine Negative NEGATIVE [place] Casts UA NOT REPORTED /LPF [place] Color, UA YELLOW YELLOW [place] Crystals, UA NOT REPORTED None /HPF [place] Epithelial Cells UA 0 TO 2 [place] Glucose, Ur Negative NEGATIVE [place] Interpretation and review of laboratory results Abnormal [place] Ketones Ql (U) Negative NEGATIVE [place] Leukocyte esterase Test strip Ql (U) Negative NEGATIVE [place] Mucus, UA NOT REPORTED None [place] Nitrite, Urine Positive Abnormal NEGATIVE [place] Other Observations UA NOT REPORTED NOT REQ. [place] pH, UA 6.0 [place] Protein (U) [Mass/Vol] 1+ Abnormal NEGATIVE [place] RBC (U) [#/Vol] 0 TO 2 [place] Renal Epithelial, UA NOT REPORTED 0 /HPF [place] Specific [place], UA 1.025 High [place] Trichomonas, UA NOT REPORTED None [place] Turbidity UA SLIGHTLY CLOUDY Abnormal CLEAR [place] Urinalysis Comments NOT REPORTED [place] Urine Hgb 1+ Abnormal NEGATIVE [place] Urobilinogen, Urine Normal Normal [place] WBC, UA 2 TO 5 [place] Yeast, UA NOT REPORTED None [place] - [place] XR CHEST 1 VWon 04-02-2020 No acute cardiopulmonary disease. [place], [place] Incoming Radiant Results From [facility] - 04/02/2020 8:01 PM EDT EXAMINATION: ONE [...] osseous abnormality. IMPRESSION: No acute cardiopulmonary disease. [place] EXAMINATION: ONE XRA Y VIEW OF [...] edema. No pneumothorax. No acute osseous abnormality. [place] CBC Auto Differentialon 02-26 Basophils (Bld) [#/Vol] 10*3/uL [place] Basophils/100 WBC (Bld) 0 % 0 - 2 % [place] Differential Type NOT REPORTED [place] Eosinophils (Bld) [#/Vol] 0.07 10*3/uL [place] Eosinophils/100 WBC (Bld) 1 % 1 - 4 % [place] Erythrocyte distribution width (RBC) [Ratio] 14.1 % 11.8 - 14.4 % [place] Hematocrit (Bld) [Volume fraction] 35.7 % Low 36.3 - 47.1 % [place] Hemoglobin (Bld) [Mass/Vol] 11.1 g/dL Low 11.9 - 15.1 g/dL [place] Immature granulocytes (Bld) [#/Vol] 0.04 10*3/uL [place] Immature granulocytes (Bld) [#/Vol] 0 % 0 [place] Interpretation and review of laboratory results Abnormal [place] Lymphocytes (Bld) [#/Vol] 1.62 10*3/uL [place] Lymphocytes/100 WBC (Bld) 14 % Low 24 - 43 % [place] MCH (RBC) [Entitic mass] 31.5 pg 25. 2 - 33.5 pg [place] MCHC (RBC) [Mass/Vol] 31.1 g/dL 28.4 - 34.8 g/dL [place] MCV (RBC) [Entitic vol] 101.4 fL 82.6 - 102.9 fL [place] Monocytes (Bld) [#/Vol] 1.43 10*3/uL [place] Monocytes/100 WBC (Bld) 12 % 3 - 12 % [place] Platelet mean volume (Bld) [Entitic vol] 10.3 fL 8.1 - 13.5 fL [place] Platelets (Bld) [#/Vol] 245 10*3/uL [place] Platelets (Bld) [#/Vol] NOT REPORTED [place] RBC (Bld) [#/Vol] 3.52 10*6/uL Low 3.95 - 5.1 1 m/uL [place] RBC morphology finding Nom (Bld) NOT REPORTED [place] Segmented neutrophils/100 WBC (Bld) 73 % High 36 - 65 % [place] Segs Absolute 8.49 High [place] WBC (Bld) [#/Vol] 0.0 10*3/uL 0.0 per 10 0 WBC [place] WBC (Bld) [#/Vol] 11.7 10*3/uL [place] WBC Morphology NOT REPORTED [place] Comprehensive Metabolic Pane riddhi 03-25-2020 Albumin [Mass/Vol] 3.3 g/dL Low 3.5 - 5.2 g/dL [place] Albumin/Globulin [Mass ratio] 1.1 {ratio} [place] ALP [Catalytic activity/Vol] 118 U/L High 35 - 104 U/L [place] ALT [Catalytic activity/Vol] 14 U/L 5 - 33 U/L [place] Anion gap [Moles/Vol] 14 mmol/L 9 - 17 mmol/L [place] AST [Catalytic activity/Vol] 15 U/L <32 [place] Bilirubin Ql (U) 0.39 mg/dL 0.3 - 1.2 mg/dL [place] Bun/Cre Ratio 17 [place] Calcium [Mass/Vol] 9.1 mg/dL 8.6 - 10. 4 mg/dL [place] Chloride [Moles/Vol] 101 mmol/L 98 - 10 7 mmol/L [place] CO2 [Moles/Vol] 27 mmol/L 20 - 31 mmol/L [place] Creatinine [Mass/Vol] 1.32 mg/dL High 0.5 - 0.9 mg/dL [place] GFR 47 mL/min Low >60 [place] GFR Non- 39 mL/min Low >60 [place] Glucose [Mass/Vol] 140 mg/dL High 70 - 99 mg/dL [place] Interpretation and review of laboratory results Abnormal [place] Potassium [Moles/Vol] 3.7 mmol/L 3.7 - 5.3 mmol/L [place] Protein [Mass/Vol] 6.2 g/dL Low 6.4 - 8.3 g/dL [place] Sodium [Moles/Vol] 142 mmol/L 135 - 144 mmol/L [place] Urea nitrogen [Mass/Vol] 22 mg/dL 8 - 23 mg/dL [place] Metabolic Panelon 03-25-2020 GFR/1.73 sq M predicted among non-blacks MDRD (S/P/Bld) [Vol rate/Area] [place] Comment on above: Average GFR for 70 o r more years old: 75 mL/min/1.73sq m Chronic Kidney Disease: <60 mL/min/1.73sq m Kidney failure: <15 mL/min/1.73sq m eGFR calculated using average adult body mass. Additional eGFR calculator available at: http://www.Planet [employer].Awesome.me/multiple_crcl_2012.htm Stage 1: Some kidney damage normal GFR Stage 2: Mild kidney damage GFR 60-89 Stage 3: Moderate kidney damage GFR 30-59 Stage 4: Severe kidney damage GFR 15-29 Stage 5: Severe kidney damage GFR <15 ESRD - chronic treatment by dialysis or transplant APTTon 03-23-2020 aPTT Coag (Bld) [Time] 33.4 s [place] Comment on above: IV Heparin Therapy Range: 62.0-94.0 Basic Metabolic Panel w/ Ref tosha to MGon 03-23-2020 Anion gap [Moles/Vol] 16 mmol/L 9 - 17 mmol/L [place] Bun/Cre Ratio 17 [place] Calcium [Mass/Vol] 9.2 mg/dL 8.6 - 10. 4 mg/dL [place] Chloride [Moles/Vol] 99 mmol/L 98 - 10 7 mmol/L [place] CO2 [Moles/Vol] 25 mmol/L 20 - 31 mmol/L [place] Creatinine [Mass/Vol] 1.43 mg/dL High 0.5 - 0.9 mg/dL [place] GFR 43 mL/min Low >60 [place] GFR Non- 35 mL/min Low >60 [place] Glucose [Mass/Vol] 112 mg/dL High 70 - 99 mg/dL [place] Interpretation and review of laboratory results Abnormal [place] Potassium [Moles/Vol] 4.1 mmol/L 3.7 - 5.3 mmol/L [place] Sodium [Moles/Vol] 140 mmol/L 135 - 144 mmol/L [place] Urea nitrogen [Mass/Vol] 25 mg/dL High 8 - 23 mg/dL [place] CBC Auto Differentialon 02-26 Basophils (Bld) [#/Vol] 10*3/uL [place] Basophils/100 WBC (Bld) 0 % 0 - 2 % [place] Differential Type NOT REPORTED [place] Eosinophils (Bld) [#/Vol] 0.12 10*3/uL [place] Eosinophils/100 WBC (Bld) 1 % 1 - 4 % [place] Erythrocyte distribution width (RBC) [Ratio] 14.5 % High 11.8 - 14.4 % [place] Hematocrit (Bld) [Volume fraction] 38.0 % 36.3 - 47.1 % [place] Hemoglobin (Bld) [Mass/Vol] 11.4 g/dL Low 11.9 - 15.1 g/dL [place] Immature granulocytes (Bld) [#/Vol] 0 % 0 [place] Immature granulocytes (Bld) [#/Vol] 0.03 10*3/uL [place] Interpretation and review of laboratory results Abnormal [place] Lymphocytes (Bld) [#/Vol] 1.80 10*3/uL [place] Lymphocytes/100 WBC (Bld) 17 % Low 24 - 43 % [place] MCH (RBC) [Entitic mass] 31.1 pg 25. 2 - 33.5 pg [place] MCHC (RBC) [Mass/Vol] 30.0 g/dL 28.4 - 34.8 g/dL [place] MCV (RBC) [Entitic vol] 103.8 fL High 82.6 - 102.9 fL [place] Monocytes (Bld) [#/Vol] 1.42 10*3/uL High [place] Monocytes/100 WBC (Bld) 13 % High 3 - 12 % [place] Platelet mean volume (Bld) [Entitic vol] 10.2 fL 8.1 - 13.5 fL [place] Platelets (Bld) [#/Vol] NOT REPORTED [place] Platelets (Bld) [#/Vol] 245 10*3/uL [place] RBC (Bld) [#/Vol] 3.66 10*6/uL Low 3.95 - 5.1 1 m/uL [place] RBC morphology finding Nom (Bld) NOT REPORTED [place] Segmented neutrophils/100 WBC (Bld) 69 % High 36 - 65 % [place] Segs Absolute 7.34 [place] WBC (Bld) [#/Vol] 10.7 10*3/uL [place] WBC (Bld) [#/Vol] 0.0 10*3/uL 0.0 per 10 0 WBC [place] WBC Morphology NOT REPORTED [place] COVID-19, PCRon 03-23-2020 SARS-CoV-2 [place] SARS-CoV-2, PCR [place] SARS-CoV-2, Rapid Not Detected Not Detected [place] Comment on above: Rapid NAAT: The [...] management decisions. Fact sheet for Healthcare Providers: https://www.fda.gov/media/558795/download Fact sheet for Patients: https://www.fda.gov/media/914382/download Methodology: Isothermal Nucleic Acid Amplification Source .NASOPHARYNGEAL SWAB [place] Metabolic Panelon 03-23-2020 GFR/1.73 sq M predicted among non-blacks MDRD (S/P/Bld) [Vol rate/Area] [place], [place] Comment on above: Average GFR for 70 o r more years old: 75 mL/min/1.73sq m Chronic Kidney Disease: <60 mL/min/1.73sq m Kidney failure: <15 mL/min/1.73sq m eGFR calculated using average adult body mass. Additional eGFR calculator available at: http://www.[employer].Awesome.me/multiple_crcl_2012.htm Stage 1: Some kidney damage normal GFR Stage 2: Mild kidney damage GFR 60-89 Stage 3: Moderate kidney damage GFR 30-59 Stage 4: Severe kidney damage GFR 15-29 Stage 5: Severe kidney damage GFR <15 ESRD - chronic treatment by dialysis or transplant Protime-INRon 03-23-2020 INR Coag (PPP) [Relative time] 1.2 {INR} [place], [place] Comment on above: Non-therapeutic Range: INR = 0.9-1.2 Therapeutic Range: Moderate Anticoagulant Intensity: INR = 2.0-3.0 High Anticoagulant Intensity: INR = 2.5-3.5 Interpretation and review of laboratory results Abnormal [place] PT Coag (PPP) [Time] 14.9 s High [place] XR HIP 2-3 VW W PELVIS LEFTo n 03-23-2020 Erythrocyte distribution width (RBC) [Ratio] Hardware fixation of the proximal left femoral fracture without evidence for complication. Degenerative change of the SI joints and hip joints. [place], [facility] Incoming Radiant Results From [facility] - 03/23/2020 3:40 PM EDT EXAMINATION: ONE [...] of the SI joints and hip joints. [place] EXAMINATION: ONE XRA Y VIEW OF [...] joints. The surrounding soft tissues are unremarkable. [place] CBC Auto Differentialon 02-25 Basophils (Bld) [#/Vol] 10*3/uL [place] Basophils/100 WBC (Bld) 0 % 0 - 2 % [place], [place] Differential Type NOT REPORTED [place] Eosinophils (Bld) [#/Vol] 0.25 10*3/uL [place] Eosinophils/100 WBC (Bld) 5 % High 1 - 4 % [place] Erythrocyte distribution width (RBC) [Ratio] 16.0 % High 11.8 - 14.4 % [place] Hematocrit (Bld) [Volume fraction] 34.2 % Low 36.3 - 47.1 % [place] Hemoglobin (Bld) [Mass/Vol] 10.0 g/dL Low 11.9 - 15.1 g/dL [place] Immature granulocytes (Bld) [#/Vol] 0.03 10*3/uL [place] Immature granulocytes (Bld) [#/Vol] 1 % High 0 [place] Interpretation and review of laboratory results Abnormal [place] Lymphocytes (Bld) [#/Vol] 1.50 10*3/uL [place] Lymphocytes/100 WBC (Bld) 30 % 24 - 43 % [place] MCH (RBC) [Entitic mass] 31.2 pg 25. 2 - 33.5 pg [place] MCHC (RBC) [Mass/Vol] 29.2 g/dL 28.4 - 34.8 g/dL [place] MCV (RBC) [Entitic vol] 106.5 fL High 82.6 - 102.9 fL [place] Monocytes (Bld) [#/Vol] 0.70 10*3/uL [place] Monocytes/100 WBC (Bld) 14 % High 3 - 12 % [place] Platelet mean volume (Bld) [Entitic vol] 10.2 fL 8.1 - 13.5 fL [place] Platelets (Bld) [#/Vol] NOT REPORTED [place] Platelets (Bld) [#/Vol] 311 10*3/uL [place] RBC (Bld) [#/Vol] 3.21 10*6/uL Low 3.95 - 5.1 1 m/uL [place] RBC morphology finding Nom (Bld) NOT REPORTED [place] Segmented neutrophils/100 WBC (Bld) 50 % 36 - 65 % [place] Segs Absolute 2.44 [place] WBC (Bld) [#/Vol] 0.0 10*3/uL 0.0 per 10 0 WBC [place] WBC (Bld) [#/Vol] 4.9 10*3/uL [place] WBC Morphology NOT REPORTED [place] Comprehensive Metabolic Pane riddhi 03-12-2020 Albumin [Mass/Vol] 3.3 g/dL Low 3.5 - 5.2 g/dL [place] Albumin/Globulin [Mass ratio] 1.6 {ratio} [place] ALP [Catalytic activity/Vol] 124 U/L High 35 - 104 U/L [place] ALT [Catalytic activity/Vol] 18 U/L 5 - 33 U/L [place] Anion gap [Moles/Vol] 14 mmol/L 9 - 17 mmol/L [place] AST [Catalytic activity/Vol] 20 U/L <32 [place] Bilirubin Ql (U) 0.19 mg/dL Low 0.3 - 1.2 mg/dL [place] Bun/Cre Ratio 20 [place] Calcium [Mass/Vol] 8.6 mg/dL 8.6 - 10. 4 mg/dL [place] Chloride [Moles/Vol] 106 mmol/L 98 - 10 7 mmol/L [place] CO2 [Moles/Vol] 24 mmol/L 20 - 31 mmol/L [place] Creatinine [Mass/Vol] 1.5 mg/dL High 0.5 - 0.9 mg/dL [place] GFR 40 mL/min Low >60 [place] GFR Non- 33 mL/min Low >60 [place] Glucose [Mass/Vol] 78 mg/dL 70 - 99 mg/dL [place] Interpretation and review of laboratory results Abnormal [place] Potassium [Moles/Vol] 4.3 mmol/L 3.7 - 5.3 mmol/L [place] Protein [Mass/Vol] 5.4 g/dL Low 6.4 - 8.3 g/dL [place] Sodium [Moles/Vol] 144 mmol/L 135 - 144 mmol/L [place] Urea nitrogen [Mass/Vol] 30 mg/dL High 8 - 23 mg/dL [place] Metabolic Panelon 03-12-2020 GFR/1.73 sq M predicted among non-blacks MDRD (S/P/Bld) [Vol rate/Area] [place] Comment on above: Stage 1: Some [...] body mass. Additional eGFR calculator available at: http://www.Context Relevant/multiple_crcl_2012.htm CBC Auto Differentialon Basophils (Bld) [#/Vol] 10*3/uL [place] Basophils/100 WBC (Bld) 0 % 0 - 2 % [place] Differential Type NOT REPORTED [place] Eosinophils (Bld) [#/Vol] 0.25 10*3/uL [place] Eosinophils/100 WBC (Bld) 4 % 1 - 4 % [place] Erythrocyte distribution width (RBC) [Ratio] 17.5 % High 11.8 - 14.4 % [place] Hematocrit (Bld) [Volume fraction] 33.4 % Low 36.3 - 47.1 % [place] Hemoglobin (Bld) [Mass/Vol] 10.0 g/dL Low 11.9 - 15.1 g/dL [place] Immature granulocytes (Bld) [#/Vol] 0.03 10*3/uL [place] Immature granulocytes (Bld) [#/Vol] 1 % High 0 [place] Interpretation and review of laboratory results Abnormal [place] Lymphocytes (Bld) [#/Vol] 1.40 10*3/uL [place] Lymphocytes/100 WBC (Bld) 23 % Low 24 - 43 % [place] MCH (RBC) [Entitic mass] 31.1 pg 25. 2 - 33.5 pg [place] MCHC (RBC) [Mass/Vol] 29.9 g/dL 28.4 - 34.8 g/dL [place] MCV (RBC) [Entitic vol] 103.7 fL High 82.6 - 102.9 fL [place] Monocytes (Bld) [#/Vol] 0.58 10*3/uL [place] Monocytes/100 WBC (Bld) 9 % 3 - 12 % [place] Platelet mean volume (Bld) [Entitic vol] 9.6 fL 8.1 - 13.5 fL [place] Platelets (Bld) [#/Vol] NOT REPORTED [place] Platelets (Bld) [#/Vol] 403 10*3/uL [place] RBC (Bld) [#/Vol] 3.22 10*6/uL Low 3.95 - 5.1 1 m/uL [place] RBC morphology finding Nom (Bld) NOT REPORTED [place] Segmented neutrophils/100 WBC (Bld) 63 % 36 - 65 % [place] Segs Absolute 3.89 [place] WBC (Bld) [#/Vol] 0.0 10*3/uL 0.0 per 10 0 WBC [place] WBC (Bld) [#/Vol] 6.2 10*3/uL [place] WBC Morphology NOT REPORTED [place] Comprehensive Metabolic Pane riddhi 02-27-2020 Albumin [Mass/Vol] 3.3 g/dL Low 3.5 - 5.2 g/dL [place] Albumin/Globulin [Mass ratio] 1.3 {ratio} [place] ALP [Catalytic activity/Vol] 145 U/L High 35 - 104 U/L [place] ALT [Catalytic activity/Vol] 40 U/L High 5 - 33 U/L [place] Anion gap [Moles/Vol] 11 mmol/L 9 - 17 mmol/L [place] AST [Catalytic activity/Vol] 34 U/L High <32 [place] Bilirubin Ql (U) 0.39 mg/dL 0.3 - 1.2 mg/dL [place] Bun/Cre Ratio 21 [place] Calcium [Mass/Vol] 8.8 mg/dL 8.6 - 10. 4 mg/dL [place] Chloride [Moles/Vol] 107 mmol/L 98 - 10 7 mmol/L [place] CO2 [Moles/Vol] 24 mmol/L 20 - 31 mmol/L [place] Creatinine [Mass/Vol] 1.32 mg/dL High 0.5 - 0.9 mg/dL [place] GFR 47 mL/min Low >60 [place] GFR Non- 39 mL/min Low >60 [place] Glucose [Mass/Vol] 103 mg/dL High 70 - 99 mg/dL [place] Interpretation and review of laboratory results Abnormal [place] Potassium [Moles/Vol] 3.8 mmol/L 3.7 - 5.3 mmol/L [place] Protein [Mass/Vol] 5.9 g/dL Low 6.4 - 8.3 g/dL [place] Sodium [Moles/Vol] 142 mmol/L 135 - 144 mmol/L [place] Urea nitrogen [Mass/Vol] 28 mg/dL High 8 - 23 mg/dL [place] Metabolic Panelon 02-27-2020 GFR/1.73 sq M predicted among non-blacks MDRD (S/P/Bld) [Vol rate/Area] [place] Comment on above: Stage 1: Some [...] body mass. Additional eGFR calculator available at: http://www.Context Relevant/multiple_crcl_2012.htm CBC Auto Differentialon 01-26 Basophils (Bld) [#/Vol] 10*3/uL [place] Basophils/100 WBC (Bld) 0 % 0 - 2 % [place] Differential Type NOT REPORTED [place] Eosinophils (Bld) [#/Vol] 0.33 10*3/uL [place] Eosinophils/100 WBC (Bld) 4 % 1 - 4 % [place] Erythrocyte distribution width (RBC) [Ratio] 16.7 % High 11.8 - 14.4 % [place] Hematocrit (Bld) [Volume fraction] 31.9 % Low 36.3 - 47.1 % [place] Hemoglobin (Bld) [Mass/Vol] 9.7 g/dL Low 11.9 - 15.1 g/dL [place] Immature granulocytes (Bld) [#/Vol] 0.20 10*3/uL [place] Immature granulocytes (Bld) [#/Vol] 2 % High 0 [place] Interpretation and review of laboratory results Abnormal [place] Lymphocytes (Bld) [#/Vol] 2.08 10*3/uL [place] Lymphocytes/100 WBC (Bld) 23 % Low 24 - 43 % [place] MCH (RBC) [Entitic mass] 30.8 pg 25. 2 - 33.5 pg [place] MCHC (RBC) [Mass/Vol] 30.4 g/dL 28.4 - 34.8 g/dL [place] MCV (RBC) [Entitic vol] 101.3 fL 82.6 - 102.9 fL [place] Monocytes (Bld) [#/Vol] 1.09 10*3/uL [place] Monocytes/100 WBC (Bld) 12 % 3 - 12 % [place] Platelet mean volume (Bld) [Entitic vol] 9.8 fL 8.1 - 13.5 fL [place] Platelets (Bld) [#/Vol] NOT REPORTED [place] Platelets (Bld) [#/Vol] 468 10*3/uL [place] RBC (Bld) [#/Vol] 3.15 10*6/uL Low 3.95 - 5.1 1 m/uL [place] RBC morphology finding Nom (Bld) NOT REPORTED [place] Segmented neutrophils/100 WBC (Bld) 59 % 36 - 65 % [place] Segs Absolute 5.43 [place] WBC (Bld) [#/Vol] 0.0 10*3/uL 0.0 per 10 0 WBC [place] WBC (Bld) [#/Vol] 9.2 10*3/uL [place] WBC Morphology NOT REPORTED [place] Comprehensive Metabolic Pane riddhi 02-20-2020 Albumin [Mass/Vol] 3.3 g/dL Low 3.5 - 5.2 g/dL [place] Albumin/Globulin [Mass ratio] 1.2 {ratio} [place] ALP [Catalytic activity/Vol] 158 U/L High 35 - 104 U/L [place] ALT [Catalytic activity/Vol] 101 U/L High 5 - 33 U/L [place] Anion gap [Moles/Vol] 15 mmol/L 9 - 17 mmol/L [place] AST [Catalytic activity/Vol] 100 U/L High <32 [place] Bilirubin Ql (U) 0.43 mg/dL 0.3 - 1.2 mg/dL [place] Bun/Cre Ratio 23 [place] Calcium [Mass/Vol] 8.6 mg/dL 8.6 - 10. 4 mg/dL [place] Chloride [Moles/Vol] 102 mmol/L 98 - 10 7 mmol/L [place] CO2 [Moles/Vol] 22 mmol/L 20 - 31 mmol/L [place] Creatinine [Mass/Vol] 1.46 mg/dL High 0.5 - 0.9 mg/dL [place] GFR 42 mL/min Low >60 [place] GFR Non- 34 mL/min Low >60 [place] Glucose [Mass/Vol] 98 mg/dL 70 - 99 mg/dL [place] Interpretation and review of laboratory results Abnormal [place] Potassium [Moles/Vol] 3.6 mmol/L Low 3.7 - 5.3 mmol/L [place] Protein [Mass/Vol] 6.0 g/dL Low 6.4 - 8.3 g/dL [place] Sodium [Moles/Vol] 139 mmol/L 135 - 144 mmol/L [place] Urea nitrogen [Mass/Vol] 33 mg/dL High 8 - 23 mg/dL [place] Metabolic Panelon 02-20-2020 GFR/1.73 sq M predicted among non-blacks MDRD (S/P/Bld) [Vol rate/Area] [place] Comment on above: Stage 1: Some [...] body mass. Additional eGFR calculator available at: http://www.Planet [employer].Awesome.me/multiple_crcl_2012.htm Danna Bobo 02-17-2020 C Bld -- - Final No growth at 5 days. Normal [facility] Comment on above: Performed By: #### E GFR #### [address] [address] C Bld Blood cultures x 2 - Final No growth at 5 days. Normal [facility] Comment on above: Performed By: #### F OL #### [place] [id number] .eGFRon 02-15-2020 eGFR AA 40 mL/min/1.73m? Low >=60 [facility] Comment on above: Result Comment: Resu lt = 0-14.9 mL/min/1.73 m2 Kidney failure or Dialysis Result = 15-29 mL/min/1.73 m2 Severe decrease in GFR Result = 30-59 mL/min/1.73 m2 Moderate decrease in GFR Result >= 60 mL/min/1.73 m2 Normal or increased GFR Performed By: #### T IBC #### [place] [id number] eGFR Non-AA 33 mL/min/1.73m? Low >=60 [facility] Comment on above: Result Comment: [...] dosing. Performed By: #### T IBC #### [address] [address] CBCon 02-15-2020 Erythrocyte distribution width (RBC) [Ratio] 14.7 % Normal 11.6-14.8 [facility] Comment on above: Performed By: #### F OL #### [address] [address] Hematocrit (Bld) [Volume fraction] 28.4 % Low 36.0-46.0 [facility] Comment on above: Performed By: #### F OL #### [place] [id number] Hemoglobin (Bld) [Mass/Vol] 9.3 g/dL Low 12.0-16.0 [facility] Comment on above: Performed By: #### F OL #### [place] [id number] MCH (RBC) [Entitic mass] 30.7 pg Normal 27.0-35.0 [facility] Comment on above: Performed By: #### F OL #### [place] [id number] MCHC (RBC) [Mass/Vol] 32.8 % Normal 31.0-37.0 [facility] Comment on above: Performed By: #### F OL #### [place] [id number] MCV (RBC) [Entitic vol] 93.4 fL Normal 80.0-100.0 [facility] Comment on above: Performed By: #### F OL #### [address] [address] Platelet mean volume (Bld) [Entitic vol] 8.4 fL Normal 6.7-10.6 [facility] Comment on above: Performed By: #### F OL #### [address] [address] Platelets (Bld) [#/Vol] 246 x10*3/mcL Normal 150-350 [facility] Comment on above: Performed By: #### F OL #### [address] [address] RBC (Bld) [#/Vol] 3.04 x10*6/mcL Low 3.80-5.20 [facility] Comment on above: Performed By: #### F OL #### [facility] [address] [place] [address] WBC (Bld) [#/Vol] 8.2 x10*3/mcL Normal 4.5-11.0 [facility] Comment on above: Performed By: #### F OL #### [address] [address] Magnesiumon 02-15-2020 Magnesium [Mass/Vol] 2.1 mg/dL Normal 1.7-2.4 [facility] Comment on above: Performed By: #### T IBC #### [address] [address] Nephrology Progress Noteon 0 02-15-2020 Nephrology Progress [...] acute pulmonary process. Signed By: Manolo KUMAR, santosh Computed Tomography No qualifying data available. Ultrasound No qualifying data available. Magnetic Resonance Imaging No qualifying data available. Nuclear Medicine No qualifying data available. Physical Exam Lungs: [Clear, non-labored respiration]. Heart: [Normal rate, regular rhythm, no edema]. Abdomen: [Soft, non-tender, non-distended, normal bowel sounds]. Mental Status:[Alert and oriented x3]. Medications Inpatient acetaminophen, 650 mg, Oral, q6hr, PRN acetaminophen, 1000 mg, Oral, [id number] Times ALPRAZolam, 0.25 mg, Oral, HS (at bedtime) calcitriol, 0.25 mcg, Oral, Mo// Dulcolax Laxative, 10 mg, Oral, Daily, PRN Haldol, 2.5 mg, 0.5 mL, IM, [id number] Times, PRN hydrALAZINE, 25 mg, Oral, TID Lovenox, 30 mg, 0.3 mL, Subcutaneous, q24hr meclizine, 25 mg, Oral, TID, PRN MiraLax, 17 g, 1 EA, Oral, Daily naloxone, 0.4 mg, 1 mL, IV Push, q2min, PRN [place] 5 mg-325 mg oral tablet, 1 tabs, [...] by Dr. Jordan on 02/09 Discharged to [facility] for rehab post surgery. 6. Intertrochanteric fracture [...] Hearing loss sensory, bilateral Discharge planning to [facility]. Follow-up with Dr. Chew on discharge. Electronically signed by Kelly MOTLEY Stephanie Britney 02/15/20 15:03 EDT The patient was personally evaluated by myself and the case was discussed with Stephanie Mendoza CNP. I agree with the above noted assessment and plans. Patient has continued to do well with stable advanced kidney disease as well as hypertension management. Follow-up in the clinic several weeks from now Electronically signed by Marianela NIELSONDilan Juliarominalamar 02/15/20 23:31 EDT [facility] Progress Note-Nurseon 2019 Progress Note-Nurse Nurse Serg called [facility] to give report regarding the discharge. Nurse [...] signed by Serg Lai 02/15/20 13:31 EDT [facility] Provider Letteron 02-15-2020 Provider Letter Justino Dhaliwal DO [address] [place] [address], [place] [address] Re: Jesús Nolan Date of Visit: 02/09/2020 [...] - (02/15/2020) Hospitalist Discharge Summary Note Normal [facility] Renal Panelon 02-15-2020 Albumin [Mass/Vol] 3.0 g/dL Low 3.2-4.9 [facility] Comment on above: Result Comment: [facility] Laboratory updated the methodology used for albumin testing on 05/04/18. Albumin measurement was performed using a bromcresol purple dye-binding assay. Performed By: #### E GFR #### [address] [address] Anion gap [Moles/Vol] 15 mmol/L Normal 7-17 [facility] Comment on above: Performed By: #### E GFR #### [address] [address] Calcium [Mass/Vol] 8.2 mg/dL Low 8.5-10.3 [facility] Comment on above: Performed By: #### E GFR #### [address] [address] Chloride [Moles/Vol] 103 mmol/L Normal 98-110 [facility] Comment on above: Performed By: #### E GFR #### [address] [address] CO2 [Moles/Vol] 25 mmol/L Normal 22-32 [facility] Comment on above: Performed By: #### E GFR #### [address] [address] Creatinine [Mass/Vol] 1.51 mg/dL High 0.44-1.03 [facility] Comment on above: Performed By: #### E GFR #### [address] [address] Glucose [Mass/Vol] 105 mg/dL High 70-99 [facility] Comment on above: Performed By: #### E GFR #### [address] [address] Phosphate [Mass/Vol] 3.4 mg/dL Normal 2.5-4.6 [facility] Comment on above: Performed By: #### E GFR #### [address] [address] Potassium [Moles/Vol] 4.4 mmol/L Normal 3.4-4.8 [facility] Comment on above: Performed By: #### E GFR #### [address] [address] Sodium [Moles/Vol] 139 mmol/L Normal 133-142 [facility] Comment on above: Performed By: #### E GFR #### [address] [address] Urea nitrogen [Mass/Vol] 26 mg/dL Normal 8-26 [facility] Comment on above: Performed By: #### E GFR #### [address] [address] Urea nitrogen/Creatinine [Mass ratio] 17.2 mg/mg Normal 10.0-20.0 [facility] Comment on above: Performed By: #### E GFR #### [address] [address] [id number] RNA PCR Send O uton 02-15-2020 [id number] RNA by PCR Not Detected Normal Not Detected [facility] Comment on above: Order Comment: utmcf or nh placement in a couple days Result Comment: Miss ing Attachment Chartable Reference Lab Reports Can be viewed in source system Performed By: #### E GFR #### [address] [address] .eGFRon 02-14-2020 eGFR Non-AA 37 mL/min/1.73m? Low >=60 [facility] Comment on above: Result Comment: [...] dosing. Performed By: #### E GFR #### [address] [address] eGFR AA 45 mL/min/1.73m? Low >=60 [facility] Comment on above: Result Comment: Resu lt = 0-14.9 mL/min/1.73 m2 Kidney failure or Dialysis Result = 15-29 mL/min/1.73 m2 Severe decrease in GFR Result = 30-59 mL/min/1.73 m2 Moderate decrease in GFR Result >= 60 mL/min/1.73 m2 Normal or increased GFR Performed By: #### E GFR #### [address] [address] CBCon 02-14-2020 Erythrocyte distribution width (RBC) [Ratio] 14.5 % Normal 11.6-14.8 [facility] Comment on above: Performed By: #### T IBC #### [address] [address] Hematocrit (Bld) [Volume fraction] 26.8 % Low 36.0-46.0 [facility] Comment on above: Performed By: #### T IBC #### [address] [address] Hemoglobin (Bld) [Mass/Vol] 8.8 g/dL Low 12.0-16.0 [facility] Comment on above: Performed By: #### T IBC #### [address] [address] MCH (RBC) [Entitic mass] 30.6 pg Normal 27.0-35.0 [facility] Comment on above: Performed By: #### T IBC #### [address] [address] MCHC (RBC) [Mass/Vol] 33.0 % Normal 31.0-37.0 [facility] Comment on above: Performed By: #### T IBC #### [address] [address] MCV (RBC) [Entitic vol] 92.8 fL Normal 80.0-100.0 [facility] Comment on above: Performed By: #### T IBC #### [address] [address] Platelet mean volume (Bld) [Entitic vol] 8.7 fL Normal 6.7-10.6 [facility] Comment on above: Performed By: #### T IBC #### [address] [address] Platelets (Bld) [#/Vol] 190 x10*3/mcL Normal 150-350 [facility] Comment on above: Performed By: #### T IBC #### [address] [address] RBC (Bld) [#/Vol] 2.89 x10*6/mcL Low 3.80-5.20 [facility] Comment on above: Performed By: #### T IBC #### [address] [address] WBC (Bld) [#/Vol] 8.6 x10*3/mcL Normal 4.5-11.0 [facility] Comment on above: Performed By: #### T IBC #### [address] [address] Magnesiumon 02-14-2020 Magnesium [Mass/Vol] 2.2 mg/dL Normal 1.7-2.4 [facility] Comment on above: Performed By: #### P HOS #### [address] [address] Nephrology Progress Noteon 0 02-14-2020 Nephrology Progress [...] Oral, q6hr, PRN acetaminophen, 1000 mg, Oral, [id number] Times ALPRAZolam, 0.25 mg, Oral, HS (at bedtime) calcitriol, 0.25 mcg, Oral, Mo//Fr Dulcolax Laxative, 10 mg, Oral, Daily, PRN Haldol, 2.5 mg, 0.5 mL, IM, [id number] Times, PRN hydrALAZINE, 25 mg, Oral, TID Lovenox, 30 mg, 0.3 mL, Subcutaneous, q24hr meclizine, 25 mg, Oral, TID, PRN naloxone, 0.4 mg, 1 mL, IV Push, q2min, PRN [place] 5 mg-325 mg oral tablet, 1 tabs, [...] loss sensory, bilateral Possible discharge to [facility] testing pending. Follow-up with Dr. Chew on [...] Dilan Chew DO 02/14/20 22:40 EDT Normal [facility] Orthopedic Progress Noteon 0 02-14-2020 Orthopedic [...] pulmonary process. Signed By: Manolo KUMAR, Ahmad Computed Tomography No qualifying data available. Ultrasound [...] Oral, q6hr, PRN acetaminophen, 1000 mg, Oral, [id number] Times ALPRAZolam, 0.25 mg, Oral, HS (at bedtime) calcitriol, 0.25 mcg, Oral, Mo/We/Fr Dulcolax Laxative, 10 mg, Oral, Daily, PRN Haldol, 2.5 mg, 0.5 mL, IM, [id number] Times, PRN hydrALAZINE, 25 mg, Oral, TID Lovenox, 30 mg, 0.3 mL, Subcutaneous, q24hr meclizine, 25 mg, Oral, TID, PRN MiraLax, 17 g, 1 EA, Oral, Daily naloxone, 0.4 mg, 1 mL, IV Push, q2min, PRN [place] 5 mg-325 mg oral tablet, 1 tabs, [...] Naman Edmond PA-C 02/14/20 19:09 EDT Normal [facility] Renal Panelon 02-14-2020 Albumin [Mass/Vol] 2.9 g/dL Low 3.2-4.9 [facility] Comment on above: Result Comment: [facility] Laboratory updated the methodology used for albumin testing on 05/04/18. Albumin measurement was performed using a bromcresol purple dye-binding assay. Performed By: #### E GFR #### [address] [address] Anion gap [Moles/Vol] 14 mmol/L Normal 7-17 [facility] Comment on above: Performed By: #### E GFR #### [address] [address] Calcium [Mass/Vol] 8.1 mg/dL Low 8.5-10.3 [facility] Comment on above: Performed By: #### E GFR #### [address] [address] Chloride [Moles/Vol] 103 mmol/L Normal 98-110 [facility] Comment on above: Performed By: #### E GFR #### [address] [address] CO2 [Moles/Vol] 25 mmol/L Normal 22-32 [facility] Comment on above: Performed By: #### E GFR #### [address] [address] Creatinine [Mass/Vol] 1.37 mg/dL High 0.44-1.03 [facility] Comment on above: Performed By: #### E GFR #### [address] [address] Glucose [Mass/Vol] 115 mg/dL High 70-99 [facility] Comment on above: Performed By: #### E GFR #### [address] [place] [address] Phosphate [Mass/Vol] 2.0 mg/dL Low 2.5-4.6 [facility] Comment on above: Performed By: #### E GFR #### [address] [address] Potassium [Moles/Vol] 3.9 mmol/L Normal 3.4-4.8 [facility] Comment on above: Performed By: #### E GFR #### [address] [address] Sodium [Moles/Vol] 138 mmol/L Normal 133-142 [facility] Comment on above: Performed By: #### E GFR #### [address] [address] Urea nitrogen [Mass/Vol] 20 mg/dL Normal 8-26 [facility] Comment on above: Performed By: #### E GFR #### [address] [address] Urea nitrogen/Creatinine [Mass ratio] 14.6 mg/mg Normal 10.0-20.0 [facility] Comment on above: Performed By: #### E GFR #### [address] [address] .UA Microscp Aon 02-13-2020 UA Mucus Present Abnormal Absent [facility] Comment on above: Performed By: #### C [id number] #### [address] [address] UA RBC Quant 0 /HPF Normal 0-5 [facility] Comment on above: Performed By: #### C [id number] #### [address] [address] UA WBC Quant 0 /HPF Normal 0-5 [facility] Comment on above: Performed By: #### C [id number] #### [address] [address] .eGFRon 02-13-2020 eGFR Non-AA 30 mL/min/1.73m? Low >=60 [facility] Comment on above: Order Comment: [...] dosing. Performed By: #### E GFR #### [address] [address] eGFR AA 36 mL/min/1.73m? Low >=60 [facility] [...] GFR Performed By: #### E GFR #### [address] [address] CBCon 02-13-2020 Erythrocyte distribution width (RBC) [Ratio] 14.5 % Normal 11.6-14.8 [facility] Comment on above: Performed By: #### E GFR #### [address] [address] Hematocrit (Bld) [Volume fraction] 27.6 % Low 36.0-46.0 [facility] Comment on above: Performed By: #### E GFR #### [address] [address] Hemoglobin (Bld) [Mass/Vol] 9.1 g/dL Low 12.0-16.0 [facility] Comment on above: Performed By: #### E GFR #### [address] [address] MCH (RBC) [Entitic mass] 30.7 pg Normal 27.0-35.0 [facility] Comment on above: Performed By: #### E GFR #### [address] [address] MCHC (RBC) [Mass/Vol] 32.9 % Normal 31.0-37.0 [facility] Comment on above: Performed By: #### E GFR #### [address] [address] MCV (RBC) [Entitic vol] 93.2 fL Normal 80.0-100.0 [facility] Comment on above: Performed By: #### E GFR #### [address] [address] Platelet mean volume (Bld) [Entitic vol] 9.0 fL Normal 6.7-10.6 [facility] Comment on above: Performed By: #### E GFR #### [address] [address] Platelets (Bld) [#/Vol] 169 x10*3/mcL Normal 150-350 [facility] Comment on above: Performed By: #### E GFR #### [address] [address] RBC (Bld) [#/Vol] 2.96 x10*6/mcL Low 3.80-5.20 [facility] Comment on above: Performed By: #### E GFR #### [address] [address] WBC (Bld) [#/Vol] 9.8 x10*3/mcL Normal 4.5-11.0 [facility] Comment on above: Performed By: #### E GFR #### [address] [address] [employer] Progress Noteon 02-13-2020 [employer] Progress Note Second IMM letter delivered to patient. Electronically signed by Kasie Flowers 02/13/20 09:58 EDT Normal [facility] 02-13-2020 Magnesium [Mass/Vol] 2.3 mg/dL Normal 1.7-2.4 [facility] Comment on above: Performed By: #### E GFR #### [place] [id number] Nephrology Progress Noteon 0 02-13-2020 Nephrology Progress [...] of acute pulmonary process. Signed By: Manolo KMUAR, Ahmad XR Femur 2 or More Views [...] mg, 1 mL, IV Push, q2min, PRN [place] 5 mg-325 mg oral tablet, 1 tabs, [...] of her antihypertensive medications. Electronically signed by Marianela NIELSON Herberthdavid Hadley 02/13/20 23:09 EDT Normal [facility] Orthopedic Progress Noteon 0 02-13-2020 Orthopedic [...] Results Diagnostic Radiology XR Chest 1 View 05/18/20 12:01:43 Impression: Stable chest without radiographic evidence [...] Oral, q6hr, PRN acetaminophen, 1000 mg, Oral, r8rb-Mucyanmi Times ALPRAZolam, 0.25 mg, Oral, HS (at bedtime) calcitriol, 0.25 mcg, Oral, Mo//Fr Dulcolax Laxative, 10 mg, Oral, Daily, PRN Haldol, 2.5 mg, 0.5 mL, IM, o7cd-Hmbckgyf Times, PRN hydrALAZINE, 25 mg, Oral, TID Lovenox, 30 mg, 0.3 mL, Subcutaneous, q24hr meclizine, 25 mg, Oral, TID, PRN naloxone, 0.4 mg, 1 mL, IV Push, q2min, PRN [place] 5 mg-325 mg oral tablet, 1 tabs, [...] prophylaxis, and PT. Okay to DC to assisted facility from orthopedic standpoint. Follow-up at [facility] with Dr. Jordan in 2 weeks. 3. Chronic kidney disease 4. Electrolyte abnormality 5. Renal osteodystrophy 6. Hypertension 7. Status post hip surgery 8. Laceration of head 9. Hearing loss sensory, bilateral 10. Anemia Electronically signed by Naman Edmond PA-C 02/13/20 17:38 EDT [facility] Renal Panelon 02-13-2020 Albumin [Mass/Vol] 3.4 g/dL Normal 3.2-4.9 [facility] Comment on above: Result Comment: [facility] Laboratory updated the methodology used for albumin testing on 05/04/18. Albumin measurement was performed using a bromcresol purple dye-binding assay. Performed By: #### R ENAL #### [address] [address] Anion gap [Moles/Vol] 13 mmol/L Normal 7-17 [facility] Comment on above: Performed By: #### R ENAL #### [address] [address] Calcium [Mass/Vol] 8.0 mg/dL Low 8.5-10.3 [facility] Comment on above: Performed By: #### R ENAL #### [address] [address] Chloride [Moles/Vol] 105 mmol/L Normal 98-110 [facility] Comment on above: Performed By: #### R ENAL #### [address] [address] CO2 [Moles/Vol] 26 mmol/L Normal 22-32 [facility] Comment on above: Performed By: #### R ENAL #### [address] [address] Creatinine [Mass/Vol] 1.64 mg/dL High 0.44-1.03 [facility] Comment on above: Performed By: #### R ENAL #### [address] [place] [address] Glucose [Mass/Vol] 114 mg/dL High 70-99 [facility] Comment on above: Performed By: #### R ENAL #### [address] [place] [address] Phosphate [Mass/Vol] 2.8 mg/dL Normal 2.5-4.6 [facility] Comment on above: Performed By: #### R ENAL #### [address] [address] Potassium [Moles/Vol] 4.2 mmol/L Normal 3.4-4.8 [facility] Comment on above: Performed By: #### R ENAL #### [address] [address] Sodium [Moles/Vol] 140 mmol/L Normal 133-142 [facility] Comment on above: Performed By: #### R ENAL #### [address] [address] Urea nitrogen [Mass/Vol] 23 mg/dL Normal 8-26 [facility] Comment on above: Performed By: #### R ENAL #### [address] [address] Urea nitrogen/Creatinine [Mass ratio] 14.0 mg/mg Normal 10.0-20.0 [facility] Comment on above: Performed By: #### R ENAL #### [address] [address] UA w Culture if Indon 2019 Color (U) Yellow Normal [facility] Comment on above: Performed By: #### T IBC #### [address] [address] Glucose (U) [Mass/Vol] Negative Normal Negative [facility] Comment on above: Performed By: #### T IBC #### [address] [address] Ketones Ql (U) Negative Normal Negative [facility] Comment on above: Performed By: #### T IBC #### [facility] [address] [place] [address], [place] [address] UA Blood Moderate Abnormal Negative [facility] Comment on above: Performed By: #### T IBC #### [facility] [address] [facility] [address] UA Clarity Hazy Normal [facility] Comment on above: Performed By: #### T IBC #### [address] [place] [address] UA Leukocyte Esterase Negative Normal Negative [facility] Comment on above: Performed By: #### T IBC #### [address] [place] [address] UA Nitrite Negative Normal Negative [facility] Comment on above: Performed By: #### T IBC #### [address] [address] UA pH 5.0 Normal 4.5 - 7.8 [facility] Comment on above: Performed By: #### T IBC #### [address] [place] [address] UA Protein 30 mg/dL Abnormal Negative [facility] Comment on above: Performed By: #### T IBC #### [address] [place] [address] UA Source Clean Catch Normal [facility] Comment on above: Performed By: #### T IBC #### [address] [place] [address] UA Spec Grav 1.014 Normal 1.003-1.035 [facility] Comment on above: Performed By: #### T IBC #### [address] [address] UA Urobilinogen 0.2 mg/dL Normal 0.2 - 1.0 [facility] Comment on above: Performed By: #### T IBC #### [address] [place] [address] Urobilinogen Qn (U) Negative Normal Negative [facility] Comment on above: Performed By: #### T IBC #### [address] [address] .eGFRon 02-12-2020 eGFR AA 44 mL/min/1.73m? Low [...] GFR Performed By: #### E GFR #### [place] [id number] eGFR Non-AA 36 mL/min/1.73m? Low >=60 [facility] Comment on above: Order Comment: [...] dosing. Performed By: #### E GFR #### [address] [address] CBCon 02-12-2020 Erythrocyte distribution width (RBC) [Ratio] 14.3 % Normal 11.6-14.8 [facility] Comment on above: Performed By: #### T IBC #### [address] [address] Hematocrit (Bld) [Volume fraction] 28.6 % Low 36.0-46.0 [facility] Comment on above: Performed By: #### T IBC #### [address] [address] Hemoglobin (Bld) [Mass/Vol] 9.4 g/dL Low 12.0-16.0 [facility] Comment on above: Performed By: #### T IBC #### [address] [address] MCH (RBC) [Entitic mass] 31.0 pg Normal 27.0-35.0 [facility] Comment on above: Performed By: #### T IBC #### [address] [address] MCHC (RBC) [Mass/Vol] 33.0 % Normal 31.0-37.0 [facility] Comment on above: Performed By: #### T IBC #### [address] [address] MCV (RBC) [Entitic vol] 93.9 fL Normal 80.0-100.0 [facility] Comment on above: Performed By: #### T IBC #### [address] [address] Platelet mean volume (Bld) [Entitic vol] 8.7 fL Normal 6.7-10.6 [facility] Comment on above: Performed By: #### T IBC #### [address] [address] Platelets (Bld) [#/Vol] 136 x10*3/mcL Low 150-350 [facility] Comment on above: Performed By: #### T IBC #### [address] [address] RBC (Bld) [#/Vol] 3.05 x10*6/mcL Low 3.80-5.20 [facility] Comment on above: Performed By: #### T IBC #### [address] [address] WBC (Bld) [#/Vol] 11.4 x10*3/mcL High 4.5-11.0 [facility] Comment on above: Performed By: #### T IBC #### [facility] [address] [place] [address] Magnesiumon 02-12-2020 Magnesium [Mass/Vol] 2.5 mg/dL High 1.7-2.4 [facility] Comment on above: Performed By: #### M G #### [facility] [address] [place] [address] Nephrology Progress Noteon 0 02-12-2020 Nephrology Progress [...] acute pulmonary process. Signed By: Manolo KUMAR, [facility] Femur 2 or More Views [...] mg, 1 mL, IV Push, q2min, PRN [place] 5 mg-325 mg oral tablet, 1 tabs, [...] Dilan Chew DO 02/12/20 21:34 EDT Normal [facility] Orthopedic Progress Noteon 0 02-12-2020 Orthopedic [...] mg, 1 mL, IV Push, q2min, PRN [place] 5 mg-325 mg oral tablet, 1 tabs, [...] 12. Delirium, acute Electronically signed by Mayito WATSON Naman Edd 02/12/20 11:16 EDT [facility] PTH-INTon 02-12-2020 PTH Intact 94 pg/mL High 12-88 [facility] Comment on above: Performed By: #### P HOS #### [place] [id number] Procalcitonin Levelon 2019 Procalcitonin Lvl 0.54 ng/mL High <=0.49 [facility] Comment on above: Result Comment: [...] hours. Performed By: #### E GFR #### [place] [id number] Progress Note - [employer] Progress Note - [...] 09) Plt L 136 (FEBRUARY 11) 156 (JANUARY 17) 198 (FEBRUARY 09) Na 134 (FEBRUARY 11) L 132 (FEBRUARY 10) 138 (FEBRUARY 09) K 3.8 (FEBRUARY 11) 4.0 (FEBRUARY 10) H 5.2 (FEBRUARY 09) CO2 26 (FEBRUARY 11) 25 (FEBRUARY 10) 24 (FEBRUARY 09) Cl 98 (FEBRUARY 11) 99 (FEBRUARY 10) 102 (FEBRUARY 09) Cr H 1.39 (FEBRUARY 11) H 1.51 (FEBRUARY 10) H 1.87 (FEBRUARY 09) BUN 21 (JANUARY [...] mg, 1 mL, IV Push, q2min, PRN [place] 5 mg-325 mg oral tablet, 1 tabs, [...] Dose: 02/12/20 21:00:00 EDT, Dispense From Location: [employer] EKG Indwelling Urinary Catheter Discontinue Sitter at [...] by Kenyatta Pena 02/12/20 10:03 EDT Normal [facility] Progress Note-Nurseon 2019 Progress Note-Nurse Attempted to administer morning meds and new meds that were ordered by nephrology. Patient is currently confused and combative, and refusing all patient care. Electronically signed by Mery De La Rosa 02/12/20 13:24 EDT [facility] Renal Panelon 02-12-2020 Albumin [Mass/Vol] 3.6 g/dL Normal 3.2-4.9 [facility] Comment on above: Result Comment: [facility] Laboratory updated the methodology used for albumin testing on 05/04/18. Albumin measurement was performed using a bromcresol purple dye-binding assay. Performed By: #### P HOS #### [address] [address] Anion gap [Moles/Vol] 14 mmol/L Normal 7-17 [facility] Comment on above: Performed By: #### P HOS #### [address] [address] Calcium [Mass/Vol] 8.1 mg/dL Low 8.5-10.3 [facility] Comment on above: Performed By: #### P HOS #### [address] [address] Chloride [Moles/Vol] 98 mmol/L Normal 98-110 [facility] Comment on above: Performed By: #### P HOS #### [address] [address] CO2 [Moles/Vol] 26 mmol/L Normal 22-32 [facility] Comment on above: Performed By: #### P HOS #### [address] [address] Creatinine [Mass/Vol] 1.39 mg/dL High 0.44-1.03 [facility] Comment on above: Performed By: #### P HOS #### [address] [address] Glucose [Mass/Vol] 134 mg/dL High 70-99 [facility] Comment on above: Performed By: #### P HOS #### [address] [address] Phosphate [Mass/Vol] 2.6 mg/dL Normal 2.5-4.6 [facility] Comment on above: Performed By: #### P HOS #### [address] [address] Potassium [Moles/Vol] 3.8 mmol/L Normal 3.4-4.8 [facility] Comment on above: Performed By: #### P HOS #### [facility] [address] [place] [address] Sodium [Moles/Vol] 134 mmol/L Normal 133-142 [facility] Comment on above: Performed By: #### P HOS #### [facility] [address] [place] [address] Urea nitrogen [Mass/Vol] 21 mg/dL Normal 8-26 [facility] Comment on above: Performed By: #### P HOS #### [address] [address] Urea nitrogen/Creatinine [Mass ratio] 15.1 mg/mg Normal 10.0-20.0 [facility] Comment on above: Performed By: #### P HOS #### [address] [address] XR Chest 1 Viewon 02-12-2020 XR Chest [...] Electronically Signed in Other Vendor System) Normal [facility] .eGFRon 02-11-2020 eGFR Non-AA 33 mL/min/1.73m? Low >=60 [facility] Comment on above: Order Comment: [...] dosing. Performed By: #### F OL #### [address] [address] eGFR AA 40 mL/min/1.73m? Low >=60 [facility] [...] GFR Performed By: #### F OL #### [address] [address] B12on 02-11-2020 Cobalamin (Vitamin B12) [Mass/Vol] 135 pg/mL Low 180-914 [facility] Comment on above: Order Comment: ok to add on to am labs per [place]02/11/2020 12:08:01 EDT lottie Performed By: #### T IBC #### [address] [address] CBCon 02-11-2020 Erythrocyte distribution width (RBC) [Ratio] 14.2 % Normal 11.6-14.8 [facility] Comment on above: Performed By: #### P HOS #### [address] [address] Hematocrit (Bld) [Volume fraction] 32.5 % Low 36.0-46.0 [facility] Comment on above: Performed By: #### P HOS #### [address] [address] Hemoglobin (Bld) [Mass/Vol] 10.6 g/dL Low 12.0-16.0 [facility] Comment on above: Performed By: #### P HOS #### [address] [address] MCH (RBC) [Entitic mass] 30.9 pg Normal 27.0-35.0 [facility] Comment on above: Performed By: #### P HOS #### [address] [address] MCHC (RBC) [Mass/Vol] 32.6 % Normal 31.0-37.0 [facility] Comment on above: Performed By: #### P HOS #### [address] [address] MCV (RBC) [Entitic vol] 94.6 fL Normal 80.0-100.0 [facility] Comment on above: Performed By: #### P HOS #### [address] [address] Platelet mean volume (Bld) [Entitic vol] 8.5 fL Normal 6.7-10.6 [facility] Comment on above: Performed By: #### P HOS #### [address] [address] Platelets (Bld) [#/Vol] 156 x10*3/mcL Normal 150-350 [facility] Comment on above: Performed By: #### P HOS #### [address] [address] RBC (Bld) [#/Vol] 3.44 x10*6/mcL Low 3.80-5.20 [facility] Comment on above: Performed By: #### P HOS #### [address] [address] WBC (Bld) [#/Vol] 11.3 x10*3/mcL High 4.5-11.0 [facility] Comment on above: Performed By: #### P HOS #### [address] [address] Ferritinon 02-11-2020 Ferritin [Mass/Vol] 75.8 ng/mL Normal 11.0-306.8 [facility] Comment on above: Performed By: #### T IBC #### [address] [address] Folate Lvlon 02-11-2020 Folate Lvl 4.0 ng/mL Low >=5.9 [facility] Comment on above: Result Comment: A [facility] O Technical Consultation has determined that deficient Folate concentrations are considered to be less than 4 ng/mL. Performed By: #### F OL #### [address] [address] Magnesiumon 02-11-2020 Magnesium [Mass/Vol] 1.6 mg/dL Low 1.7-2.4 [facility] Comment on above: Performed By: #### E GFR #### [address] [address] Nephrology Progress Noteon 0 02-11-2020 Nephrology Progress [...] mg, 1 mL, IV Push, q2min, PRN [place] 5 mg-325 mg oral tablet, 1 tabs, [...] Dose: 02/11/20 14:00:00 EDT, Dispense From Location: [employer] Electronically signed by Marianela NIELSON Dilan Palomanvlamar 02/11/20 20:26 EDT Normal [facility] Orthopedic Progress Noteon 0 02-11-2020 Orthopedic [...] Date: 02/11/20 13:56:00 EDT, Dispense From Location: [facility], Prophylaxis- Pre/Post-Op enoxaparin, 30 mg, Subcutaneous, Injection, q24hr, First Dose: 02/11/20 13:00:00 EDT, Dispense From Location: [facility]-UIN-6R hydrocodone-acetaminop hen, 1 tabs, Oral, Tab, q4hr, PRN moderate pain [4-6 on pain scale], First Dose: 02/10/20 13:57:00 EDT, Dispense From Location: Umpdgsl-LQB-3M sodium chloride, 10 mL, IV Push, Injection, As Indicated, PRN flush, First Dose: 02/10/20 14:05:00 EDT, Dispense From Location: [id number] Basic Metabolic Profile Below the Knee Graduated [...] Chele Jordan MD 02/11/20 09:11 EDT Normal [facility] Progress Note - [facility] Progress Note [...] mg, 1 mL, IV Push, q2min, PRN [place] 5 mg-325 mg oral tablet, 1 tabs, [...] by Sneha Martell 02/11/20 17:37 EDT Normal [facility] Renal Panelon 02-11-2020 Albumin [Mass/Vol] 2.9 g/dL Low 3.2-4.9 [facility] Comment on above: Result Comment: [facility] Laboratory updated the methodology used for albumin testing on 05/04/18. Albumin measurement was performed using a bromcresol purple dye-binding assay. Performed By: #### F OL #### [address] [address] Anion gap [Moles/Vol] 12 mmol/L Normal 7-17 [facility] Comment on above: Performed By: #### F OL #### [address] [address] Calcium [Mass/Vol] 8.0 mg/dL Low 8.5-10.3 [facility] Comment on above: Performed By: #### F OL #### [address] [address] Chloride [Moles/Vol] 99 mmol/L Normal 98-110 [facility] Comment on above: Performed By: #### F OL #### [address] [address] CO2 [Moles/Vol] 25 mmol/L Normal 22-32 [facility] Comment on above: Performed By: #### F OL #### [address] [address] Creatinine [Mass/Vol] 1.51 mg/dL High 0.44-1.03 [facility] Comment on above: Performed By: #### F OL #### [address] [place] [address] Glucose [Mass/Vol] 193 mg/dL High 70-99 [facility] Comment on above: Performed By: #### F OL #### [address] [address] Phosphate [Mass/Vol] 2.2 mg/dL Low 2.5-4.6 [facility] Comment on above: Performed By: #### F OL #### [address] [address] Potassium [Moles/Vol] 4.0 mmol/L Normal 3.4-4.8 [facility] Comment on above: Performed By: #### F OL #### [address] [address] Sodium [Moles/Vol] 132 mmol/L Low 133-142 [facility] Comment on above: Performed By: #### F OL #### [address] [address] Urea nitrogen [Mass/Vol] 29 mg/dL High 8-26 [facility] Comment on above: Performed By: #### F OL #### [address] [address] Urea nitrogen/Creatinine [Mass ratio] 19.2 mg/mg Normal 10.0-20.0 [facility] Comment on above: Performed By: #### F OL #### [address] [address] TIBCon 02-11-2020 Iron [Mass/Vol] 22 ug/dL Low 28-170 [facility] Comment on above: Performed By: #### T IBC #### [address] [address] Iron Sat 7.6 % Low >=16.0 [facility] Comment on above: Performed By: #### T IBC #### [address] [address] TIBC 288 mcg/dL Normal 261-478 [facility] Comment on above: Performed By: #### T IBC #### [address] [address] Transferrin [Mass/Vol] 193 mg/dL Normal 192-382 [facility] Comment on above: Performed By: #### T IBC #### [address] [address] XR Femur 2 or More Views Lef [...] Electronically Signed in Other Vendor System) Normal [facility] .eGFRon 02-10-2020 eGFR Non-AA 26 mL/min/1.73m? Low >=60 [facility] Comment on above: Result Comment: [...] dosing. Performed By: #### T IBC #### [address] [address] eGFR AA 31 mL/min/1.73m? Low >=60 [facility] Comment on above: Result Comment: Resu lt = 0-14.9 mL/min/1.73 m2 Kidney failure or Dialysis Result = 15-29 mL/min/1.73 m2 Severe decrease in GFR Result = 30-59 mL/min/1.73 m2 Moderate decrease in GFR Result >= 60 mL/min/1.73 m2 Normal or increased GFR Performed By: #### T IBC #### [address] [address] CBC w/ Diffon 02-10-2020 Erythrocyte distribution width (RBC) [Ratio] 14.8 % Normal 11.6-14.8 [facility] Comment on above: Performed By: #### P HOS #### [address] [address] Hematocrit (Bld) [Volume fraction] 38.8 % Normal 36.0-46.0 [facility] Comment on above: Performed By: #### P HOS #### [address] [address] Hemoglobin (Bld) [Mass/Vol] 12.4 g/dL Normal 12.0-16.0 [facility] Comment on above: Performed By: #### P HOS #### [address] [address] MCH (RBC) [Entitic mass] 30.0 pg Normal 27.0-35.0 [facility] Comment on above: Performed By: #### P HOS #### [address] [address] MCHC (RBC) [Mass/Vol] 32.1 % Normal 31.0-37.0 [facility] Comment on above: Performed By: #### P HOS #### [address] [address] MCV (RBC) [Entitic vol] 93.5 fL Normal 80.0-100.0 [facility] Comment on above: Performed By: #### P HOS #### [address] [address] Platelet mean volume (Bld) [Entitic vol] 8.2 fL Normal 6.7-10.6 [facility] Comment on above: Performed By: #### P HOS #### [address] [address] Platelets (Bld) [#/Vol] 198 x10*3/mcL Normal 150-350 [facility] Comment on above: Performed By: #### P HOS #### [address] [address] RBC (Bld) [#/Vol] 4.15 x10*6/mcL Normal 3.80-5.20 [facility] Comment on above: Performed By: #### P HOS #### [address] [address] WBC (Bld) [#/Vol] 11.1 x10*3/mcL High 4.5-11.0 [facility] Comment on above: Performed By: #### P HOS #### [address] [address] [facility] 02-10-2020 Albumin [Mass/Vol] 3.7 g/dL Normal 3.2-4.9 [facility] Comment on above: Result Comment: [facility] Laboratory updated the methodology used for albumin testing on 05/04/18. Albumin measurement was performed using a bromcresol purple dye-binding assay. Performed By: #### T IBC #### [address] [address] Albumin/Globulin [Mass ratio] 1.3 {ratio} Normal 1.1-2.2 [facility] Comment on above: Performed By: #### T IBC #### [address] [address] Alk Phos 89 IU/L Normal 32-91 [facility] Comment on above: Performed By: #### T IBC #### [address] [address] ALT [Catalytic activity/Vol] 20 U/L Normal 14-54 [facility] Comment on above: Performed By: #### T IBC #### [address] [address] Anion gap [Moles/Vol] 17 mmol/L Normal 7-17 [facility] Comment on above: Performed By: #### T IBC #### [address] [address] AST [Catalytic activity/Vol] 21 U/L Normal 15-41 [facility] Comment on above: Performed By: #### T IBC #### [address] [address] Bili Total 0.9 mg/dL Normal 0.3-1.2 [facility] Comment on above: Performed By: #### T IBC #### [facility] [address] [place] [address] Calcium [Mass/Vol] 8.8 mg/dL Normal 8.5-10.3 [facility] Comment on above: Performed By: #### T IBC #### [facility] [address] [place] [address] Chloride [Moles/Vol] 102 mmol/L Normal 98-110 [facility] Comment on above: Performed By: #### T IBC #### [address] [address] CO2 [Moles/Vol] 24 mmol/L Normal 22-32 [facility] Comment on above: Performed By: #### T IBC #### [facility] [address] [place] [address] Creatinine [Mass/Vol] 1.87 mg/dL High 0.44-1.03 [facility] Comment on above: Performed By: #### T IBC #### [address] [place] [address] Glucose [Mass/Vol] 111 mg/dL High 70-99 [facility] Comment on above: Performed By: #### T IBC #### [address] [address] Potassium [Moles/Vol] 5.2 mmol/L High 3.4-4.8 [facility] Comment on above: Performed By: #### T IBC #### [address] [address] Protein [Mass/Vol] 6.6 g/dL Normal 6.5-8.1 [facility] Comment on above: Performed By: #### T IBC #### [address] [address] Sodium [Moles/Vol] 138 mmol/L Normal 133-142 [facility] Comment on above: Performed By: #### T IBC #### [address] [address] Urea nitrogen [Mass/Vol] 41 mg/dL High 8-26 [facility] Comment on above: Performed By: #### T IBC #### [address] [address] Urea nitrogen/Creatinine [Mass ratio] 21.9 mg/mg High 10.0-20.0 [facility] Comment on above: Performed By: #### T IBC #### [address] [address] Diff Autoon 02-10-2020 Baso Absolute 0.0 x10*3/mcL Normal 0.0-0.2 [facility] Comment on above: Performed By: #### T IBC #### [address] [address] Basophils/100 WBC (Bld) 0.2 % Normal 0.0-1.5 [facility] Comment on above: Performed By: #### T IBC #### [address] [address] Eos Absolute 0.0 x10*3/mcL Normal 0.0-0.4 [facility] Comment on above: Performed By: #### T IBC #### [address] [address] Eosinophils/100 WBC (Bld) 0.0 % Normal 0.0-5.4 [facility] Comment on above: Performed By: #### T IBC #### [address] [address] Lymphocytes (Bld) [#/Vol] 1.2 x10*3/mcL Normal 1.0-4.8 [facility] Comment on above: Performed By: #### T IBC #### [address] [address] Lymphocytes/100 WBC (Bld) 10.7 % Low 27.2-40.8 [facility] Comment on above: Performed By: #### T IBC #### [address] [address] Gallia Absolute 1.2 x10*3/mcL High 0.1-1.1 [facility] Comment on above: Performed By: #### T IBC #### [address] [address] Monocytes/100 WBC (Bld) 10.7 % Normal 3.7-11.9 [facility] Comment on above: Performed By: #### T IBC #### [address] [address] Neutro Absolute 8.7 x10*3/mcL High 1.8-7.7 [facility] Comment on above: Performed By: #### T IBC #### [address] [address] Neutro Auto 78.4 % High 47.2-70.8 [facility] Comment on above: Performed By: #### T IBC #### [address] [address] Magnesiumon 02-10-2020 Magnesium [Mass/Vol] 2.0 mg/dL Normal 1.7-2.4 [facility] Comment on above: Performed By: #### M G #### [address] [address] Nephrology Consultationon Nephrology Consultation Reason for Consultation Advanced renal dysfunction CKD stage IV History of Present Illness Patient is an 84-year-old female who is well known to the [facility] and has a known history of advanced [...] activation of EMS. Patient was taken to [facility] ER where she had some scans performed and was found to she had sustained a left intertrochanteric fracture. She was subsequently transferred to [facility] where she has been seen by Dr. Jordan and at time of examination , she is back from her surgery. She denies having any significant pain, she did report some discomfort, she denies having any chest pain, denies any arrhythmia, denies any fever or chills, nausea or vomiting. being managed from [place] emergency emergency department for left intertrochanteric hip [...] Dose: 02/10/20 22:00:00 EDT, Dispense From Location: [employer] Magnesium Level Phosphorus Level Renal Function Panel [...] mg, 1 mL, IV Push, q2min, PRN [place] 5 mg-325 mg oral tablet, 1 tabs, [...] Dilan Chew DO 02/10/20 23:31 EDT [facility] Operative Reporton 0 Operative Report Indication for Surge ry Patient is an 84-year-old with a left hip fracture. Treatment options were discussed with her as well as risks and benefits and she elected to proceed with surgery. Preoperative Diagnosis Left hip intertrochanteric fracture Postoperative Diagnosis Left hip intertrochanteric fracture Operation Left hip intramedullary nail Surgeon(s) Nikki Volunteer Specialist None Anesthesia Spinal Estimated Blood Loss 75 [...] Chele Jordan MD 02/10/20 13:55 EDT [facility] Orthopedic Consultationon Orthopedic Consultation Reason for Consultation Left hip fracture History of Present Illness Patient was walking yesterday when she lost her balance and fell on to her left hip with pain and inability to bear weight. She presented to [facility] ER where xrays revealed a left hip fracture. Patient was transferred to [facility] for treatment of this injury. [...] Chele Jordan MD 02/10/20 12:20 EDT [facility] Progress Noteon Pharmacy Progress Note [...] by Karen Uriarte 02/10/20 18:35 EDT [facility] Phosphoruson 02-10-2020 Phosphate [Mass/Vol] 3.8 mg/dL Normal 2.5-4.6 [facility] Comment on above: Performed By: #### P HOS #### [facility] [address] [place] [address] Progress Note - [employer] Progress Note - [...] mg, 1 mL, IV Push, q2min, PRN [place] 5 mg-325 mg oral tablet, 1 tabs, [...] she is not - Reported creatinine at [facility] was 2.42, creatinine significantly improved [...] Jack 02/09/2020 18:05 EDT Electronically signed by Arvin MOTLEY Sneha Semaj 02/10/20 16:09 EDT [facility] APTTon 02-09-2020 aPTT Coag (Bld) [Time] 27.1 s [place] CBC Auto Differentialon 01-25 Basophils (Bld) [#/Vol] 10*3/uL [place] Basophils/100 WBC (Bld) 0 % 0 - 2 % [place] Differential Type NOT REPORTED [place] Eosinophils (Bld) [#/Vol] 0.10 10*3/uL [place] Eosinophils/100 WBC (Bld) 1 % 1 - 4 % [place] Erythrocyte distribution width (RBC) [Ratio] 14.0 % 11.8 - 14.4 % [place] Hematocrit (Bld) [Volume fraction] 41.9 % 36.3 - 47.1 % [place] Hemoglobin (Bld) [Mass/Vol] 13.0 g/dL 11.9 - 15.1 g/dL [place] Immature granulocytes (Bld) [#/Vol] 0 % 0 [place] Immature granulocytes (Bld) [#/Vol] 10*3/uL [place] Lymphocytes (Bld) [#/Vol] 2.13 10*3/uL [place] Lymphocytes/100 WBC (Bld) 26 % 24 - 43 % [place] MCH (RBC) [Entitic mass] 30.1 pg 25. 2 - 33.5 pg [place] MCHC (RBC) [Mass/Vol] 31.0 g/dL 28.4 - 34.8 g/dL [place] MCV (RBC) [Entitic vol] 97.0 fL 82.6 - 102.9 fL [place] Monocytes (Bld) [#/Vol] 0.78 10*3/uL [place] Monocytes/100 WBC (Bld) 10 % 3 - 12 % [place] Platelet mean volume (Bld) [Entitic vol] 10.7 fL 8.1 - 13.5 fL [place] Platelets (Bld) [#/Vol] NOT REPORTED [place] Platelets (Bld) [#/Vol] 197 10*3/uL [place] RBC (Bld) [#/Vol] 4.32 10*6/uL 3.95 - 5.1 1 m/uL [place] RBC morphology finding Nom (Bld) NOT REPORTED [place] Segmented neutrophils/100 WBC (Bld) 63 % 36 - 65 % [place] Segs Absolute 5.15 [place] WBC (Bld) [#/Vol] 0.0 10*3/uL 0.0 per 10 0 WBC [place] WBC (Bld) [#/Vol] 8.2 10*3/uL [place] WBC Morphology NOT REPORTED [place] CERVICAL SPINE WO CONTRAS Ton 02-09-2020 Dam[place], Mhpn Incoming Radiant Results From [employer] - 02/09/2020 12:08 PM EDT EXAMINATION: CT [...] with left bony foraminal narrowing at C5-6. [place] EXAMINATION: CT OF T HE CERVICAL [...] The lung apices are without acute process. [place] No acute fracture or malalignment of the cervical spine. Multilevel degenerative disc disease with associated uncovertebral and facet hypertrophy with left bony foraminal narrowing at C5-6. [place] CT Head WO Contraston 2019 Damion, pn Incoming Radiant Results From [employer] - 02/09/2020 11:56 AM EDT EXAMINATION: CT [...] acute CT abnormality identified in the brain. [place] EXAMINATION: CT OF T HE HEAD [...] left posterosuperior scalp injury. No underlying fracture. [place] Left posterosuperior scalp injury without underlying fracture. No acute CT abnormality identified in the brain. [place] Comprehensive Metabolic Pane l w/ Reflex to MGon 02-09-2020 Albumin [Mass/Vol] 4.2 g/dL 3.5 - 5.2 g/dL [place] Albumin/Globulin [Mass ratio] 1.6 {ratio} [place] ALP [Catalytic activity/Vol] 97 U/L 35 - 104 U/L [place] ALT [Catalytic activity/Vol] 16 U/L 5 - 33 U/L [place] Anion gap [Moles/Vol] 16 mmol/L 9 - 17 mmol/L [place] AST [Catalytic activity/Vol] 19 U/L <32 [place] Bilirubin Ql (U) 0.38 mg/dL 0.3 - 1.2 mg/dL [place] Bun/Cre Ratio 18 [place] Calcium [Mass/Vol] 9.3 mg/dL 8.6 - 10. 4 mg/dL [place] Chloride [Moles/Vol] 102 mmol/L 98 - 10 7 mmol/L [place] CO2 [Moles/Vol] 23 mmol/L 20 - 31 mmol/L [place] Creatinine [Mass/Vol] 2.42 mg/dL High 0.5 - 0.9 mg/dL [place] GFR 23 mL/min Low >60 [place] GFR Non- 19 mL/min Low >60 [place] Glucose [Mass/Vol] 132 mg/dL High 70 - 99 mg/dL [place] Interpretation and review of laboratory results Abnormal [place] Potassium [Moles/Vol] 4.5 mmol/L 3.7 - 5.3 mmol/L [place] Protein [Mass/Vol] 6.8 g/dL 6.4 - 8.3 g/dL [place] Sodium [Moles/Vol] 141 mmol/L 135 - 144 mmol/L [place] Urea nitrogen [Mass/Vol] 43 mg/dL High 8 - 23 mg/dL [place] History and Physicalon 02-08 History and Physical Chief Complaint Fall with left hip fracture. History of Present Illness Patient is a 84-year-old female being managed from [place] emergency emergency department for left intertrochanteric hip [...] and oriented, well nourished, no acute distress. AMBLER Eye: PERRL, EOMI, normal conjunctiva. HENT: Normocephalic, [...] every 4 hours as needed for nausea. office services coordinator consult for discharge planning. 2. Fall See #1. 3. Laceration of head Scabbed. 4. Hypertension Continue hydrochlorothiazide and verapamil. 5. ESRD on dialysis Creatine in [place] was 2.42 Consult nephrology in the morning. 6. Hyperlipidemia Continue pravastatin. Medical Necessity for the hospitilization: Left intertrochanteric hip Fracture Complication Risk: Debility and . Activity at baseline: Independent Anticipated Discharge [facility] jail facility Anticipated Discharge Date: Likely greater than [...] qualifying data available. Electronically signed by Modesta MOTLEYAnshul Alan 02/09/20 18:20 EDT [facility] Metabolic Panelon 02-09-2020 GFR/1.73 sq M predicted among non-blacks MDRD (S/P/Bld) [Vol rate/Area] [place] Comment on above: Average GFR for 70 o r more years old: 75 mL/min/1.73sq m Chronic Kidney Disease: <60 mL/min/1.73sq m Kidney failure: <15 mL/min/1.73sq m eGFR calculated using average adult body mass. Additional eGFR calculator available at: http://www.Context Relevant/multiple_crcl_2012.htm Stage 1: Some kidney damage normal GFR [...] by Fer Bautista 02/09/20 22:53 EDT [facility] Protime-INRon 02-09-2020 INR Coag (PPP) [Relative time] 1.0 {INR} [place] PT Coag (PPP) [Time] 10.7 s [place] XR CHEST PORTABLEon 02-09-20 20 Damion, Mhpn Incoming Radiant Results From [employer] - 02/09/2020 11:50 AM EDT EXAMINATION: ONE XRAY VIEW OF THE CHEST 02/09/2020 11:43 am COMPARISON: 09/27/2017 HISTORY: ORDERING SYSTEM PROVIDED HISTORY: for admission TECHNOLOGIST PROVIDED HISTORY: for admission FINDINGS: The lungs are without acute focal process. There is no effusion or pneumothorax. The cardiomediastinal silhouette is stable. The osseous structures are stable. IMPRESSION: No acute process. [place] No acute process. [place] EXAMINATION: ONE XRA Y VIEW OF THE CHEST 02/09/2020 11:43 am COMPARISON: 09/27/2017 HISTORY: ORDERING SYSTEM PROVIDED HISTORY: for admission TECHNOLOGIST PROVIDED HISTORY: for admission FINDINGS: The lungs are without acute focal process. There is no effusion or pneumothorax. The cardiomediastinal silhouette is stable. The osseous structures are stable. [place] XR HIP 2-3 VW W PELVIS LEFTo n 02-09-2020 Intertrochanteric le ft hip fracture. [place] Dam[place], Mhpn Incoming Radiant Results From [employer] - 02/09/2020 3:31 PM EDT EXAMINATION: ONE [...] vascular calcifications. IMPRESSION: Intertrochanteric left hip fracture. [place] EXAMINATION: ONE XRA Y VIEW OF [...] within the acetabulum. There are vascular calcifications. [place] CBCon 02-02-2020 Erythrocyte distribution width (RBC) [Ratio] 14.1 % 11.8 - 14.4 % [place] Hematocrit (Bld) [Volume fraction] 44.3 % 36.3 - 47.1 % [place] Hemoglobin (Bld) [Mass/Vol] 13.4 g/dL 11.9 - 15.1 g/dL [place] MCH (RBC) [Entitic mass] 30.2 pg 25. 2 - 33.5 pg [place] MCHC (RBC) [Mass/Vol] 30.2 g/dL 28.4 - 34.8 g/dL [place] MCV (RBC) [Entitic vol] 100.0 fL 82.6 - 102.9 fL [place] Platelet mean volume (Bld) [Entitic vol] 10.6 fL 8.1 - 13.5 fL [place] Platelets (Bld) [#/Vol] 231 10*3/uL [place] RBC (Bld) [#/Vol] 4.43 10*6/uL 3.95 - 5.1 1 m/uL [place] WBC (Bld) [#/Vol] 8.8 10*3/uL [place] WBC (Bld) [#/Vol] 0.0 10*3/uL 0.0 per 10 0 WBC [place] Creatinine, Random Urineon 0 02-02-2020 Creatinine, Ur 148.3 mg/dL 28 - 217 mg/dL [place] Magnesiumon 02-02-2020 Magnesium [Mass/Vol] 2.0 mg/dL 1.6 - 2 .6 mg/dL [place] Metabolic Panelon 02-02-2020 GFR/1.73 sq M predicted among non-blacks MDRD (S/P/Bld) [Vol rate/Area] [place] Comment on above: Stage 1: Some [...] body mass. Additional eGFR calculator available at: http://www.Planet Metrics.Awesome.me/multiple_crcl_2012.htm PTH, Intacton 02-02-2020 Interpretation and review of laboratory results Abnormal [place] Pth Intact 103.6 pg/mL High 15 - 65 pg/mL [place] Comment on above: SAMPLES FROM PATIENT S ROUTINELY RECEIVING HIGH DOSE BIOTIN THERAPY MAY SHOW FALSELY DEPRESSED RESULTS. ADDITIONAL INFORMATION MAY BE REQUIRED FOR DIAGNOSIS. Protein, urine, randomon Protein (U) [Mass/Vol] 21 mg/dL [place] Comment on above: No normal range esta blished. Renal Function Panelon 02-01 Albumin [Mass/Vol] 4.6 g/dL 3.5 - 5.2 g/dL [place] Anion gap [Moles/Vol] 15 mmol/L 9 - 17 mmol/L [place] Bun/Cre Ratio 17 [place] Calcium [Mass/Vol] 9.9 mg/dL 8.6 - 10. 4 mg/dL [place] Chloride [Moles/Vol] 102 mmol/L 98 - 10 7 mmol/L [place] CO2 [Moles/Vol] 23 mmol/L 20 - 31 mmol/L [place] Creatinine [Mass/Vol] 1.69 mg/dL High 0.5 - 0.9 mg/dL [place] GFR 35 mL/min Low >60 [place] GFR Non- 29 mL/min Low >60 [place] Glucose [Mass/Vol] 120 mg/dL High 70 - 99 mg/dL [place] Interpretation and review of laboratory results Abnormal [place] Phosphate [Mass/Vol] 2.7 mg/dL 2.6 - 4 .5 mg/dL [place] Potassium [Moles/Vol] 4.0 mmol/L 3.7 - 5.3 mmol/L [place] Sodium [Moles/Vol] 140 mmol/L 135 - 144 mmol/L [place] Urea nitrogen [Mass/Vol] 28 mg/dL High 8 - 23 mg/dL [place] Uric Acidon 02-02-2020 Urate [Mass/Vol] 5.5 mg/dL 2.4 - 5.7 mg/dL [place] Urinalysis with Microscopico n 02-02-2020 Amorphous, UA NOT REPORTED None [place] Bacteria, UA 3+ Abnormal None [place] Bilirubin Urine Negative NEGATIVE [place] Casts UA NOT REPORTED /LPF [place] Color, UA YELLOW YELLOW [place] Crystals, UA NOT REPORTED None /HPF [place] Epithelial Cells UA 10 TO 20 [place] Glucose, Ur Negative NEGATIVE [place] Interpretation and review of laboratory results Abnormal [place] Ketones Ql (U) Negative NEGATIVE [place] Leukocyte esterase Test strip Ql (U) Negative NEGATIVE [place] Mucus, UA NOT REPORTED None [place] Nitrite, Urine Positive Abnormal NEGATIVE [place] Other Observations UA NOT REPORTED NOT REQ. [place] pH, UA 5.5 [place] Protein (U) [Mass/Vol] Negative NEGATIVE [place] RBC (U) [#/Vol] None [place] Renal Epithelial, UA NOT REPORTED 0 /HPF [place] Specific [place], UA 1.020 [place] Trichomonas, UA NOT REPORTED None [place] Turbidity UA CLEAR CLEAR [place] Urinalysis Comments NOT REPORTED [place] Urine Hgb Negative NEGATIVE [place] Urobilinogen, Urine Normal Normal [place] WBC, UA 2 TO 5 [place] Yeast, UA NOT REPORTED None [place] - [place] CBCon 10-30-2019 Erythrocyte distribution width (RBC) [Ratio] 12.9 % 11.8 - 14.4 % [facility] Work Phone: Hematocrit (Bld) [Volume fraction] 42.8 % 36.3 - 47.1 % [employer] Phone: Hemoglobin (Bld) [Mass/Vol] 12.9 g/dL 11.9 - 15.1 g/dL [employer] Phone: MCH (RBC) [Entitic mass] 30.8 pg 25. 2 - 33.5 pg [employer] Phone: MCHC (RBC) [Mass/Vol] 30.1 g/dL 28.4 - 34.8 g/dL [employer] Phone: MCV (RBC) [Entitic vol] 102.1 fL 82.6 - 102.9 fL [employer] Phone: Platelet mean volume (Bld) [Entitic vol] 11.0 fL 8.1 - 13.5 fL [employer] Phone: Platelets (Bld) [#/Vol] 210 10*3/uL [employer] Phone: RBC (Bld) [#/Vol] 4.19 10*6/uL 3.95 - 5.1 1 m/uL [employer] Phone: WBC (Bld) [#/Vol] 7.9 10*3/uL [employer] Phone: WBC (Bld) [#/Vol] 0.0 10*3/uL 0.0 per 10 0 WBC [employer] Phone: Creatinine, Random Urineon 0 10-30-2019 Creatinine, Ur 173.2 mg/dL 28 - 217 mg/dL [employer] Phone: Magnesiumon 10-30-2019 Magnesium [Mass/Vol] 2.2 mg/dL 1.6 - 2 .6 mg/dL [employer] Phone: Metabolic Panelon 10-30-2019 GFR/1.73 sq M predicted among non-blacks MDRD (S/P/Bld) [Vol rate/Area] [employer] Phone: Comment on above: Average GFR for 70 o r more years old: 75 mL/min/1.73sq m Chronic Kidney Disease: <60 mL/min/1.73sq m Kidney failure: <15 mL/min/1.73sq m eGFR calculated using average adult body mass. Additional eGFR calculator available at: http://www.Context Relevant/multiple_crcl_2012.htm Stage 1: Some kidney damage normal GFR Stage 2: Mild kidney damage GFR 60-89 Stage 3: Moderate kidney damage GFR 30-59 Stage 4: Severe kidney damage GFR 15-29 Stage 5: Severe kidney damage GFR <15 ESRD - chronic treatment by dialysis or transplant PTH, Intacton 10-30-2019 Interpretation and review of laboratory results Abnormal [employer] Phone: Pth Intact 121.6 pg/mL High 15 - 65 pg/mL [employer] Phone: Comment on above: SAMPLES FROM PATIENT S ROUTINELY RECEIVING HIGH DOSE BIOTIN THERAPY MAY SHOW FALSELY DEPRESSED RESULTS. ADDITIONAL INFORMATION MAY BE REQUIRED FOR DIAGNOSIS. Protein, urine, randomon Protein (U) [Mass/Vol] 22 mg/dL [email or web address] Phone: Comment on above: No normal range esta blished. Renal Function Panelon 10-30 Albumin [Mass/Vol] 4.4 g/dL 3.5 - 5.2 g/dL [employer] Phone: Anion gap [Moles/Vol] 13 mmol/L 9 - 17 mmol/L [employer] Phone: Bun/Cre Ratio 17 [employer] Phone: Calcium [Mass/Vol] 9.6 mg/dL 8.6 - 10. 4 mg/dL [employer] Phone: Chloride [Moles/Vol] 105 mmol/L 98 - 10 7 mmol/L [employer] Phone: CO2 [Moles/Vol] 25 mmol/L 20 - 31 mmol/L [employer] Phone: Creatinine [Mass/Vol] 1.72 mg/dL High 0.5 - 0.9 mg/dL [employer] Phone: GFR 34 mL/min Low >60 [employer] Phone: GFR Non- 28 mL/min Low >60 [employer] Phone: Glucose [Mass/Vol] 122 mg/dL High 70 - 99 mg/dL [employer] Phone: Interpretation and review of laboratory results Abnormal [employer] Phone: Phosphate [Mass/Vol] 3.5 mg/dL 2.6 - 4 .5 mg/dL [employer] Phone: Potassium [Moles/Vol] 4.7 mmol/L 3.7 - 5.3 mmol/L [employer] Phone: Sodium [Moles/Vol] 143 mmol/L 135 - 144 mmol/L [employer] Phone: Urea nitrogen [Mass/Vol] 30 mg/dL High 8 - 23 mg/dL [employer] Phone: Uric Acidon 10-30-2019 Urate [Mass/Vol] 5.2 mg/dL 2.4 - 5.7 mg/dL [employer] Phone: Urinalysis with Microscopico n 10-30-2019 Amorphous, UA NOT REPORTED None [employer] Phone: Bacteria, UA 3+ Abnormal None [employer] Phone: Bilirubin Urine Negative NEGATIVE [employer] Phone: Casts UA NOT REPORTED /LPF [employer] Phone: Color, UA YELLOW YELLOW [employer] Work Phone: Crystals UA NOT REPORTED None /HPF [employer] Work Phone: Epithelial Cells UA 10 TO 20 [employer] Work Phone: Glucose, Ur Negative NEGATIVE [employer] Work Phone: Interpretation and review of laboratory results Abnormal [employer] Work Phone: Ketones Ql (U) Negative NEGATIVE [facility] Work Phone: Leukocyte esterase Test strip Ql (U) TRACE Abnormal NEGATIVE [employer] Phone: Mucus, UA NOT REPORTED None [employer] Phone: Nitrite, Urine Negative NEGATIVE [employer] Phone: Other Observations UA NOT REPORTED NOT REQ. [facility] Work Phone: pH, UA 5.0 [employer] Work Phone: Protein (U) [Mass/Vol] [facility]IVE [facility] Work Phone: RBC (U) [#/Vol] 0 TO 2 [employer] Phone: Renal Epithelial, Urine NOT REPORTED 0 /HPF [employer] Work Phone: Specific [place], UA 1.020 [employer] Work Phone: Trichomonas, UA NOT REPORTED None [facility] Work Phone: Turbidity UA SLIGHTLY CLOUDY Abnormal CLEAR [employer] Work Phone: Urinalysis Comments NOT REPORTED [facility] [employer] Work Phone: Urine Hgb Negative NEGATIVE [facility] Work Phone: Urobilinogen, Urine Normal Normal [email or web address] Phone: WBC, UA 5 TO 10 [employer] Work Phone: Yeast, UA NOT REPORTED None [facility] [employer] Phone: - [facility] [employer] Phone: CBCon 08-11-2019 Erythrocyte distribution width (RBC) [Ratio] 13.8 % 11.8 - 14.4 % [place] Hematocrit (Bld) [Volume fraction] 40.5 % 36.3 - 47.1 % [place] Hemoglobin (Bld) [Mass/Vol] 12.5 g/dL 11.9 - 15.1 g/dL [place] MCH (RBC) [Entitic mass] 30.9 pg 25. 2 - 33.5 pg [place] MCHC (RBC) [Mass/Vol] 30.9 g/dL 28.4 - 34.8 g/dL [place] MCV (RBC) [Entitic vol] 100.2 fL 82.6 - 102.9 fL [place] Platelet mean volume (Bld) [Entitic vol] 10.5 fL 8.1 - 13.5 fL [place] Platelets (Bld) [#/Vol] 245 10*3/uL [place] RBC (Bld) [#/Vol] 4.04 10*6/uL 3.95 - 5.1 1 m/uL [place] WBC (Bld) [#/Vol] 7.1 10*3/uL [place] WBC (Bld) [#/Vol] 0.0 10*3/uL 0.0 per 10 0 WBC [place] Creatinine Clearanceon 08-11 Creatinine [Mass/Vol] 54.7 mg/dL 28 - 2 17 mg/dL [place] Creatinine [Mass/Vol] 1.8 mg/dL High 0.5 - 0.9 mg/dL [place] Creatinine Clearance 25.8 Low [place] Interpretation and review of laboratory results Abnormal [place] Length Of Collection 24 h [place] Patient Height 155 cm [place] Volume 1175 mL [place] Creatinine, Random Urineon 10-11-2018 Creatinine, Ur 18.5 mg/dL Low 28 - 217 mg/dL [place] Interpretation and review of laboratory results Abnormal [place] Magnesiumon 08-11-2019 Magnesium [Mass/Vol] 1.9 mg/dL 1.6 - 2 .6 mg/dL [place] Metabolic Panelon 08-11-2019 GFR/1.73 sq M predicted among non-blacks MDRD (S/P/Bld) [Vol rate/Area] [place] Comment on above: Average GFR for 70 o r more years old: 75 mL/min/1.73sq m Chronic Kidney Disease: <60 mL/min/1.73sq m Kidney failure: <15 mL/min/1.73sq m eGFR calculated using average adult body mass. Additional eGFR calculator available at: http://www.Context Relevant/multiple_crcl_2012.htm Stage 1: Some kidney damage normal GFR Stage 2: Mild kidney damage GFR 60-89 Stage 3: Moderate kidney damage GFR 30-59 Stage 4: Severe kidney damage GFR 15-29 Stage 5: Severe kidney damage GFR <15 ESRD - chronic treatment by dialysis or transplant PTH, Int[place]on 08-11-2019 Interpretation and review of laboratory results Abnormal [place] Pth Intact 99.15 pg/mL High 15 - 65 pg/mL [place] Comment on above: SAMPLES FROM PATIENT S ROUTINELY RECEIVING HIGH DOSE BIOTIN THERAPY MAY SHOW FALSELY DEPRESSED RESULTS. ADDITIONAL INFORMATION MAY BE REQUIRED FOR DIAGNOSIS. Protein, urine, randomon Protein (U) [Mass/Vol] mg/dL mg/dL [place] Comment on above: No normal range esta blished. Protein, urine, timedon 07-28 Hours Collected 24 h [place] Protein (U) [Mass/Vol] 5 mg/dL [place] Volume 1175 mL [place] Comment on above: CORRECTED ON 08/11 A T 1745: PREVIOUSLY REPORTED 1175 ML Renal Function Panelon 08-11 Albumin [Mass/Vol] 4.3 g/dL 3.5 - 5.2 g/dL [place] Anion gap [Moles/Vol] 15 mmol/L 9 - 17 mmol/L [place] Bun/Cre Ratio 16 [place] Calcium [Mass/Vol] 9.2 mg/dL 8.6 - 10. 4 mg/dL [place] Chloride [Moles/Vol] 100 mmol/L 98 - 10 7 mmol/L [place] CO2 [Moles/Vol] 22 mmol/L 20 - 31 mmol/L [place] Creatinine [Mass/Vol] 1.8 mg/dL High 0.5 - 0.9 mg/dL [place] GFR 33 mL/min Low >60 [place] GFR Non- 27 mL/min Low >60 [place] Glucose [Mass/Vol] 110 mg/dL High 70 - 99 mg/dL [place] Interpretation and review of laboratory results Abnormal [place] Phosphate [Mass/Vol] 2.8 mg/dL 2.6 - 4 .5 mg/dL [place] Potassium [Moles/Vol] 4.1 mmol/L 3.7 - 5.3 mmol/L [place] Sodium [Moles/Vol] 137 mmol/L 135 - 144 mmol/L [place] Urea nitrogen [Mass/Vol] 29 mg/dL High 8 - 23 mg/dL [place] TSH without Reflexon 019 TSH Qn 3.22 m[IU]/L [place] US RENAL COMPLETEon 08-11-20 19 1. [...] CT for confirmation of the above findings. [place] EXAMINATION: RETROPERITONEAL ULTRASOUND OF THE KIDNEYS AND URINARY BLADDER 08/11/2019 COMPARISON: None HISTORY: ORDERING SYSTEM PROVIDED HISTORY: Chronic kidney disease, stage IV (severe) ([facility]) FINDINGS: Kidneys: Suboptimal evaluation due [...] the bladder. No significant post void residual. [facility] [employer] [place], Mhpn Incoming Radiant Results From [employer] - 08/11/2019 12:53 PM EST EXAMINATION: RETROPERITONEAL ULTRASOUND OF THE KIDNEYS AND URINARY BLADDER 08/11/2019 COMPARISON: None HISTORY: ORDERING SYSTEM PROVIDED HISTORY: Chronic kidney disease, stage IV (severe) ([facility]) FINDINGS: Kidneys: Suboptimal evaluation due [...] CT for confirmation of the above findings. [email or web address] Uric Acidon 08-11-2019 Urate [Mass/Vol] 5.4 mg/dL 2.4 - 5.7 mg/dL [facility] Urinalysison 08-11-2019 Protein (U) [Mass/Vol] NOT REPORTED mg/X h [facility] [place] Urinalysis with Microscopico n 08-11-2019 Amorphous, UA NOT REPORTED None [facility], [place] Bacteria, UA TRACE Abnormal None [facility] Bilirubin Urine Negative NEGATIVE [facility] [place] Casts UA NOT REPORTED /LPF [place] Color, UA YELLOW YELLOW [place] Crystals UA NOT REPORTED None /HPF [facility] Epithelial Cells UA 0 TO 2 [place] Glucose, Ur Negative NEGATIVE [place] Interpretation and review of laboratory results Abnormal [place] Ketones Ql (U) Negative NEGATIVE [facility] [place] Leukocyte esterase Test strip Ql (U) Negative NEGATIVE [facility] [place] Mucus, UA NOT REPORTED None [place] Nitrite, Urine Negative NEGATIVE [place] Other Observations UA NOT REPORTED NOT REQ. [place] pH, UA 5.5 [place] Protein (U) [Mass/Vol] Negative NEGATIVE [place] RBC (U) [#/Vol] 0 TO 2 [place] Renal Epithelial, Urine NOT REPORTED 0 /HPF [place] Specific [place], UA <1.005 [place] Trichomonas, UA NOT REPORTED None [place] Turbidity UA CLEAR CLEAR [place] Urinalysis Comments NOT REPORTED [place] Urine Hgb Negative NEGATIVE [place] Urobilinogen, Urine Normal Normal [place] WBC, UA 0 TO 2 [place] Yeast, UA NOT REPORTED [place] Vitamin B12 & Folateon 08-11 Cobalamin (Vitamin B12) [Mass/Vol] 391 pg/mL 232 - 1245 pg/mL [place] Folate 7.7 ng/mL >4.8 [place] Vital Signs Date Time Vital Sign Value Performing Clinician Facility 11-02-2024 14:11-0500 Body weight 62.6 kg Kermitsahra Becca DO Work Phone: [facility] 11-02-2024 14:11-0500 Diastolic blood pressure 84 mm[Hg] Adelaida Hudson DO Work Phone: [facility] 11-02-2024 14:11-0500 Heart rate 80 /min Christsahra Hudson DO Work Phone: [facility] 11-02-2024 14:11-0500 SaO2% (BldA) [Mass fraction] 98 % Christsahra Hudson DO Work Phone: [facility] 11-02-2024 14:11-0500 Systolic blood pressure 130 mm[Hg] Adelaida Hudson DO Work Phone: [facility] 09-18-2024 13:42-0500 Diastolic blood pressure 82 mm[Hg] Lucian Carvalho Jr, MD [facility] 09-18-2024 13:42-0500 Systolic blood pressure 162 mm[Hg] Lucian Carvalho Jr, MD [facility] 08-16-2024 11:12-0500 Body height 152.4 cm [facility] 08-16-2024 11:12-0500 Body mass index (BMI) [Ratio] 27.1 kg/m2 [facility] 08-16-2024 11:12-0500 Body weight 63.04 kg [facility] 08-16-2024 11:12-0500 Diastolic blood pressure 76 mm[Hg] [facility] 08-16-2024 11:12-0500 Heart rate 66 /min [facility] 08-16-2024 11:12-0500 Systolic blood pressure 163 mm[Hg] [facility] 01-19-2024 09:43-0400 Body height 152.4 cm [facility] 01-19-2024 09:43-0400 Body mass index (BMI) [Ratio] 25.4 kg/m2 [facility] 01-19-2024 09:43-0400 Body temperature 97.9 [degF] [facility] 01-19-2024 09:43-0400 Body weight 58.96 kg [facility] 01-19-2024 09:43-0400 Diastolic blood pressure 75 mm[Hg] [facility] 01-19-2024 09:43-0400 Heart rate 74 /min [facility] 01-19-2024 09:43-0400 Systolic blood pressure 148 mm[Hg] [facility] 12-06-2023 14:21-0400 Diastolic blood pressure 88 mm[Hg] Mark O'Wiley PA-C Work Phone: [facility] 12-06-2023 14:21-0400 Heart rate 60 /min Mark O'Wiley PA-C Work Phone: [facility] 12-06-2023 14:21-0400 Systolic blood pressure 155 mm[Hg] Mark O'Wiley PA-C Work Phone: [facility] 09-09-2023 13:00-0500 Diastolic blood pressure 88 mm[Hg] Brina Cordero Other [facility] [employer] Other 09-09-2023 13:00-0500 Respiratory rate 12 /min Brina Cordero Other [facility] Other 09-09-2023 13:00-0500 Systolic blood pressure 132 mm[Hg] Brina Cordero Other [facility] [employer] Other 08-31-2023 22:45-0500 Diastolic blood pressure 94 mm[Hg] MD Destiny Irwin Work Phone: [facility] 08-31-2023 22:45-0500 Heart rate 89 /min MD Destiny Irwin Work Phone: [facility] 08-31-2023 22:45-0500 Respiratory rate 18 /min MD Destiny Irwin Work Phone: [facility] 08-31-2023 22:45-0500 SaO2% (BldA) [Mass fraction] 97 % MD Destiny Irwin Work Phone: [facility] 08-31-2023 22:45-0500 Systolic blood pressure 165 mm[Hg] MD Destiny Irwin Work Phone: [facility] 08-31-2023 18:28-0500 Body height 154.94 cm MD Destiny Irwin Work Phone: [facility] 08-31-2023 18:28-0500 Body weight 59.87 kg MD Destiny Irwin Work Phone: [facility] 08-31-2023 18:27-0500 Body temperature 98.2 [degF] MD Destiny Irwin Work Phone: [facility] 06-11-2023 13:00-0400 Diastolic blood pressure 72 mm[Hg] Brina Cordero Other [facility] Other 06-11-2023 13:00-0400 Respiratory rate 12 /min Brina Cordero Other [facility] Other 06-11-2023 13:00-0400 Systolic blood pressure 178 mm[Hg] Brina Cordero Other [facility] Other 09-12-2020 11:04-0500 BP Diastolic 63 mm[Hg] Glenn [facility] [place] Comment on above: 2nd reading 09-12-2020 11:04-0500 BP Systolic 139 mm[Hg] [place] Comment on above: 2nd reading 09-12-2020 11:04-0500 Pulse (Heart Rate) 65 /min Glenn [facility] [place], [place] 09-12-2020 11:02-0500 Body Temperature 96.1 [degF] Glenn Mart[facility]nez [facility] [place] , [place] 09-12-2020 11:02-0500 Respiratory Rate 20 /min Glenn [facility], [place] 08-15-2020 10:48-0500 Body Temperature 96.69 [degF] Glenn Mart[facility]nez [facility] [place] , [place] 08-15-2020 10:48-0500 BP Diastolic 90 mm[Hg] Glenn [facility] [place] 08-15-2020 10:48-0500 BP Systolic 147 mm[Hg] [facility] [place] [facility] [place] 08-15-2020 10:48-0500 Pulse (Heart Rate) 69 /min [facility] [place] 08-15-2020 10:48-0500 Respiratory Rate 22 /min [facility] [place] 07-18-2020 10:55-0400 Body [...] 06-27-2020 11:04-0400 BP Diastolic 71 mm[Hg] Glenn [facility] [place] 06-27-2020 11:04-0400 BP Systolic 123 mm[Hg] [facility] [place] 06-27-2020 11:04-0400 Pulse (Heart Rate) 84 /min [facility] [place] 06-27-2020 11:04-0400 Respiratory Rate 22 /min [facility] [place] 05-30-2020 13:10-0400 Body Temperature 97.59 [degF] Glenn [facility] [place] 05-30-2020 13:10-0400 BP Diastolic 86 mm[Hg] Glenn [facility] [place] 05-30-2020 13:10-0400 BP Systolic 136 mm[Hg] Glenn [facility] [place] 05-30-2020 13:10-0400 Pulse (Heart Rate) 108 /min [facility] [place] 05-30-2020 13:10-0400 Respiratory Rate 20 /min [facility] [place] 05-15-2020 14:09-0400 Pulse Oximetry 97 % Chele Lagos [facility] , [place] 05-15-2020 08:52-0400 Body Temperature 98.2 [degF] Chele Simon [facility], [place] 05-15-2020 08:52-0400 BP Diastolic 58 mm[Hg] [facility] [place] [place] 05-15-2020 08:52-0400 BP Systolic 118 mm[Hg] Chele Lagos [facility] , [place] 05-15-2020 08:52-0400 Pulse (Heart Rate) 68 /min Chele Lagos [facility], [place] 05-15-2020 08:52-0400 Respiratory Rate 16 /min [facility] [place] 05-10-2020 10:40-0400 BMI (Body Mass Index) 27.21 kg/m2 Chele Lagos [facility], [place] 05-10-2020 10:40-0400 Body weight 69.67 kg [facility] , [place] 05-10-2020 10:40-0400 Height 160 cm Chele Lagos [facility] , [place] 04-06-2020 07:53-0400 Body Temperature 97 [degF] Kian Simon [facility], [place] 04-06-2020 07:53-0400 BP Diastolic 80 mm[Hg] [facility] [place] 04-06-2020 07:53-0400 BP Systolic 120 mm[Hg] Kian Treadwellk [facility], [place] 04-06-2020 07:53-0400 Pulse (Heart Rate) 66 /min Kian Simon [facility], [place] 04-06-2020 07:53-0400 Pulse Oximetry 96 % Kian Ernst [facility], [place] 04-06-2020 07:53-0400 Respiratory Rate 16 /min Kian Simno [facility], [place] 04-06-2020 04:30-0400 BMI (Body Mass Index) 30.86 kg/m2 Kian Ernst [facility], [place] 04-06-2020 04:30-0400 Body weight 71.67 kg Kian Ernst [facility], [place] 04-03-2020 07:32-0400 Height 152.4 cm Kian Ernst [facility], [place] 03-23-2020 17:22-0400 BP Diastolic 82 mm[Hg] Forestbrett Baer [facility] , [place] 03-23-2020 17:22-0400 BP Systolic 137 mm[Hg] [facility] [place] 03-23-2020 17:22-0400 Pulse Oximetry 99 % Forestbrett Mtzvelma [facility] , [place] 03-23-2020 15:09-0400 Body Temperature 98.4 [degF] [facility] 03-23-2020 15:09-0400 Pulse (Heart Rate) 76 /min Forestbrett Mtzvelma [facility], [place] 03-23-2020 15:07-0400 BMI (Body Mass Index) 31.05 kg/m2 [facility] [place] 03-23-2020 15:07-0400 Body weight 72.12 kg [facility] , [place] 03-23-2020 15:07-0400 Height 152.4 cm [address] , [place] 03-23-2020 15:07-0400 Respiratory Rate 18 /min Forestbrett Baer [facility], [place] 02-09-2020 15:52-0400 BP Diastolic 50 mm[Hg] [facility] [place] 02-09-2020 15:52-0400 BP Systolic 136 mm[Hg] [facility] [place] 02-09-2020 15:52-0400 Pulse (Heart Rate) 54 /min [facility] [place] 02-09-2020 15:52-0400 Pulse Oximetry 98 % [facility] [place] 02-09-2020 15:52-0400 Respiratory Rate 18 /min [facility] , [place] 02-09-2020 11:10-0400 Body Temperature 98.6 [degF] [facility] [place] [place] , [place] 02-09-2020 11:10-0400 Body weight 68.04 kg Mariusz Michael [facility] 08-11-2019 15:0500 Body weight 67 kg [place] Encounters Encounter Date Encounter Type Care Provider Facility Start: 11-02-2024 End: 11-02-2024 Bamboo flowsheet Adelaida Hudson DO Work Phone: [facility] Start: 11-02-2024 End: 11-02-2024 Bamboo flowsheet Adelaida Hudson DO Work Phone: [facility] Start: 11-02-2024 End: 11-02-2024 Office outpatient new 45 minutes Adelaida Hudson DO Work Phone: [facility] Comment on above: 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) Start: 11-02-2024 End: 11-02-2024 ambulatory ADELAIDA HUDSON Not Available Start: 09-18-2024 End: 09-18-2024 Lucian Carvalho Jr Work Phone: DEANA Alexander Start: 09-18-2024 ambulatory Lucian Carvalho Jr [facility] [place] Start: 08-16-2024 End: 08-16-2024 ambulatory [facility] Work Phone: Start: 08-16-2024 End: 08-16-2024 Patient encounter procedure [facility] Work Phone: Start: 07-28-2024 End: 07-28-2024 Office outpatient visit 25 minutes Mark O'Wiley PA-C Work Phone: Urology Comment on above: Nephrolithiasis (Mckenna kapil Dx); Renal cyst Start: 07-28-2024 End: 07-31-2024 ambulatory Mark O'Wiley PA-C Work Phone: Urology Start: 07-14-2024 Non-patient / Non-visit [facility] [place] Work Phone: Start: 06-28-2024 Non-patient / Non-visit [facility] Work Phone: Start: 06-27-2024 Non-patient / Non-visit [facility] Work Phone: Start: 06-15-2024 End: 06-15-2024 Luis Narciso [place] Work Phone: [facility] Alexander Start: 06-15-2024 ambulatory Luis Nolasco [facility] Start: 05-22-2024 Non-patient / Non-visit [facility] Work Phone: Start: 05-03-2024 End: [...] Not Available Start: 01-19-2024 End: 01-19-2024 ambulatory [facility] Work Phone: Start: 01-19-2024 End: 01-19-2024 Patient encounter procedure [facility] Work Phone: Start: 01-13-2024 End: 01-13-2024 Office outpatient visit 15 minutes May Glen Chan Work Phone: [facility] De La [place] Start: 01-10-2024 End: 01-10-2024 ambulatory KODY A FACUNDO Not Available Start: 01-10-2024 Non-patient / Non-visit [facility] Work Phone: Start: 01-09-2024 Non-patient / Non-visit [facility] Work Phone: Start: 01-04-2024 Telephone encounter Mark OGradyDo kumarie PA-C Work Phone: Urology Start: 01-04-2024 Non-patient / Non-visit [facility] Work Phone: Start: 12-29-2023 End: 12-29-2023 ambulatory KODY LOREDO Not Available Start: 12-21-2023 Non-patient / Non-visit [facility] [place] Work Phone: Start: 12-08-2023 Telephone encounter Mark Jacob nocollinse PA-C Work Phone: Urology Comment on above: Results Start: 12-06-2023 End: 12-06-2023 Patient encounter procedure Mark OGradyWiley PA-C Work Phone: Urology Comment on above: Nephrolithiasis (Mckenna kapil Dx); Hydronephrosis, unspecified hydronephrosis type Start: 12-06-2023 End: 12-06-2023 ambulatory Mark O'Wiley PA-C Work Phone: Urology Start: 12-06-2023 End: 12-06-2023 Subsequent hospital visit by physician [facility] Comment on above: Nephrolithiasis [N20 .0] Start: 12-06-2023 End: 12-06-2023 Subsequent hospital visit by physician [facility] 5 Work Phone: Radiology Comment on above: Nephrolithiasis [N20 .0] Start: 12-01-2023 End: 12-01-2023 ambulatory KODY LOREDO Not Available Start: 11-24-2023 Non-patient / Non-visit [facility] Work Phone: Start: 11-22-2023 Non-patient / Non-visit [facility] Work Phone: Start: 11-12-2023 Non-patient / Non-visit [facility] Work Phone: Start: 11-11-2023 Non-patient / Non-visit [facility] Work Phone: Start: 10-27-2023 End: 10-27-2023 ambulatory RICCO GARLAND Facility:[facility] Start: 10-17-2023 End: 10-21-2023 ambulatory RICCO RAJENDRA Facility:[facility] Start: 10-15-2023 End: 10-15-2023 ambulatory Brina Cordero Other [facility] Other Start: 10-15-2023 Telephone encounter Brina Cordero [facility] Start: 10-07-2023 End: 10-07-2023 ambulatory Brina Cordero Other [facility] Other Start: 10-07-2023 Telephone encounter Brina Cordero [facility] Start: 10-05-2023 End: 10-05-2023 ambulatory Brina Cordero Other [facility] Other Start: 10-05-2023 Telephone encounter Brina Cordero [facility] Start: 09-23-2023 Encounter for other preprocedural examination RICCO GARLAND [facility] Start: 09-23-2023 End: 09-23-2023 ambulatory STEFANIE OCAMPO Facility:[facility] Start: 09-23-2023 Preprocedural examin ation done Xr A21 [facility] Work Phone: Start: 09-23-2023 End: 09-23-2023 ambulatory BRINA CORDERO Facility:[facility] Start: 09-23-2023 End: 09-23-2023 ambulatory BRINA CORDERO Facility:[facility] Start: 09-17-2023 ambulatory BRINA CORDERO Facility :[facility] Start: 09-09-2023 End: 09-09-2023 ambulatory Brina Cordero Other [facility] Other Start: 09-09-2023 Transitional care janina singh srvc 14 day discharge Brina Cordero Jerrod Mclean Start: 09-08-2023 End: 09-08-2023 Cindy Miranda Work Phone: [facility]ANA De La [facility] Start: 09-08-2023 Orders Only Ricco Garland MD Work Phone: Urology Comment on above: Hydronephrosis with urinary obstruction due to renal calculus (Primary Dx) Start: 09-07-2023 End: 09-07-2023 ambulatory RICCO GARLAND Facility:[facility] Start: 09-06-2023 ambulatory Harsh Careyi ty:OSWALDO Baptiste Start: 09-03-2023 End: 09-04-2023 ambulatory Justino Grayson GLGhubert [facility] Other Start: 09-03-2023 Telephone encounter Brina Cordero [facility] Start: 09-01-2023 End: 09-03-2023 Evaluation and management of inpatient Brina oCrdero Facility:[facility] Start: 08-31-2023 Evaluation and manag ement of inpatient MD Destiny Irwin Work Phone: [facility] Work Phone: Start: 08-31-2023 End: 08-31-2023 ambulatory Brina Cordero Other [facility] Other Start: 08-31-2023 Telephone encounter Brnia Cordero [facility] Start: 08-30-2023 End: 08-30-2023 ambulatory Brina Cordero Other [facility] Other Start: 08-30-2023 Telephone encounter Brina Cordero [facility] Start: 08-26-2023 End: 08-27-2023 ambulatory Harsh C[place] [employer] Other Start: 08-26-2023 Telephone encounter Brina Cordero [facility] Start: 08-24-2023 End: 08-24-2023 ambulatory Brina Cordero Other [facility] Other Start: 08-24-2023 Telephone encounter Brina Cordero [facility] Start: 08-23-2023 End: 08-23-2023 ambulatory Brina Cordero Other [facility] Other Start: 08-23-2023 Telephone encounter Brina Cordero [facility] Start: 08-03-2023 End: 08-03-2023 ambulatory Brina Cordero Other [facility] Other Start: 08-03-2023 Telephone encounter Brina Cordero [facility] Start: 08-02-2023 End: 08-02-2023 ambulatory Brina Cordero Other [facility] Other Start: 08-02-2023 Telephone encounter Brina Cordero [facility] Start: 07-21-2023 End: 07-21-2023 ambulatory Brina Cordero Other [facility] Other Start: 07-21-2023 Telephone encounter Brina Cordero [facility] Start: 07-19-2023 End: 07-19-2023 ambulatory Brina Cordero Other [facility] Other Start: 07-19-2023 Telephone encounter Brina Cordero [facility] Start: 07-05-2023 End: 07-05-2023 ambulatory Brina Cordero Other [facility] Other Start: 07-05-2023 Telephone encounter Brina Cordero [facility] Start: 06-11-2023 End: 06-11-2023 ambulatory Brina Cordero Other [facility] Other Start: 06-11-2023 Patient encounter procedure Brina Cordero [facility] Start: 06-02-2023 End: 06-02-2023 Cindy Miranda Work Phone: [facility] Start: 05-26-2023 (MS) [facility] Brina Roxie [facility] Start: 05-26-2023 End: 05-26-2023 ambulatory Brina Cordero Other [facility] [employer] Other Start: 05-05-2023 End: 05-05-2023 Ahmed M Alkaliby Work Phone: [facility] Start: 03-23-2023 End: 03-23-2023 Ahmed M Alkaliby Work Phone: [facility] Start: 12-09-2022 End: 12-09-2022 Office outpatient visit 25 minutes Ahmed M Alkaliby Work Phone: [facility] Start: 11-24-2022 End: 11-24-2022 Ahmed M Alkaliby Work Phone: [facility] [place] Start: 09-09-2022 End: 09-09-2022 Ahmed M Alkaliby Work Phone: [facility] Start: 06-10-2022 End: 06-10-2022 Office outpatient visit 25 minutes Ahmed M Alkaliby Work Phone: [facility] Start: 12-03-2021 End: 12-03-2021 Ahmed M Alkaliby Work Phone: [facility] Start: 10-14-2021 End: 10-15-2021 ambulatory [facility] Start: 10-03-2021 End: 10-04-2021 ambulatory JUSTINO [facility] Start: 07-23-2021 End: 07-23-2021 Office outpatient visit 15 minutes Gui Mcgill Work Phone: [facility] Start: 06-24-2021 End: 06-25-2021 ambulatory JUSTINO [facility] Start: 06-24-2021 End: 06-24-2021 Subsequent hospital visit by physician Justino Dhaliwal DO Work Phone: [facility] Start: 04-30-2021 End: 04-30-2021 Gui Mcgill Work Phone: [facility] [place] Start: 04-12-2021 End: 04-12-[address] ALAN HERNANDEZ Facility: Start: 03-04-2021 End: 03-04-2021 Gui Mcgill Work Phone: [facility] [place] Start: 02-20-2021 End: 02-21-2021 ambulatory JUSTINO [facility] Start: 02-20-2021 End: 02-20-2021 Subsequent hospital visit by physician Justino Dhaliwal DO Work Phone: [facility] Start: 02-04-2021 End: 02-04-2021 Office outpatient visit 25 minutes Gui Mcgill Work Phone: [facility] [place] Start: 12-05-2020 End: 12-06-2020 ambulatory BENAHILI U MARIANELA [facility] Start: 12-05-2020 End: 12-05-2020 Subsequent [facility] Start: 11-07-2020 End: 11-08-2020 ambulatory JUSTINO Paolo [facility] Start: 11-07-2020 End: 11-07-2020 Subsequent hospital visit by physician Justino [facility] Start: 11-06-2020 End: 11-07-2020 ambulatory JUSTINO Paolo [facility] Start: 11-06-2020 End: 11-06-2020 Subsequent hospital visit by physician [facility]hlaiwal [facility] Start: 10-30-2020 End: 10-31-2020 ambulatory JUSTINO Paolo [facility] Start: 10-30-2020 End: 10-30-2020 Subsequent hospital visit by physician [facility]haliwal [facility] Start: 10-23-2020 End: 10-24-2020 ambulatory MANUEL FRED [facility] Start: 10-23-2020 End: 10-23-2020 Subsequent hospital visit by physician Just[facility]haliwal [facility] Start: 09-26-2020 End: 09-26-2020 Subsequent hospital visit by physician [facility]haliwal [facility] Start: 09-25-2020 End: 09-25-2020 Subsequent hospital visit by physician Just[facility]haliwal [facility] Start: 09-18-2020 End: 09-18-2020 Subsequent hospital visit by physician Just[facility]haliwal [facility] Start: 09-12-2020 End: 09-12-2020 Subsequent hospital visit by physician Glenn Martínez Work Phone: [facility] Comment on above: Decubitus ulcer of h eel, left, unstageable (HCC) (Primary Dx) Start: 09-11-2020 End: 09-11-2020 Subsequent hospital visit by physician Just[facility]haliwal [facility] Start: 09-06-2020 End: 09-06-2020 Subsequent hospital visit by physician Justino [facility]haliwal [facility] Start: 09-05-2020 End: 09-05-2020 Subsequent hospital visit by physician Justino [facility]haliwal [facility] Start: 08-28-2020 End: 08-28-2020 Subsequent hospital visit by physician Justino [facility]haliwal [facility] Start: 08-27-2020 End: 08-27-2020 Subsequent hospital visit by physician Justino [facility]haliwal [facility] Start: 08-21-2020 End: 08-21-2020 Subsequent hospital visit by physician Just[facility]haliwal [facility] Start: 08-16-2020 End: 08-16-2020 Subsequent hospital visit by physician Just[facility]haliwal [facility] Start: 08-15-2020 End: 08-15-2020 Subsequent hospital visit by physician Glenn Martínez Work Phone: [facility] Comment on above: Decubitus ulcer of h eel, left, unstageable (HCC) (Primary Dx) Start: 08-09-2020 End: 08-09-2020 Subsequent hospital visit by physician Justino Dhaliwal [facility] Start: 07-18-2020 End: 07-18-2020 Office outpatient visit 25 minutes Gui Mcgill Work Phone: [facility] Start: 07-18-2020 End: 07-18-2020 Subsequent hospital visit by physician Glenn Martínez Work Phone: [facility] Comment on above: Decubitus ulcer of h eel, left, unstageable (HCC) (Primary Dx); Pressure ulcer of left calf, stage 3 (HCC) Start: 07-18-2020 End: 07-18-2020 Subsequent hospital visit by physician Justino Dhaliwal [facility] Start: 07-09-2020 End: 07-09-2020 Subsequent hospital visit by physician Justino Dhaliwal [facility] Start: 07-01-2020 End: 07-01-2020 Subsequent hospital visit by physician Justino Dhaliwal [facility] Start: 06-27-2020 End: 06-27-2020 Subsequent hospital visit by physician Glenn Martínez Work Phone: [facility] Comment on above: Decubitus ulcer of h eel, left, unstageable (HCC) (Primary Dx); Pressure injury of left heel, stage 3 (HCC) Start: 06-25-2020 End: 06-25-2020 Subsequent hospital visit by physician Justino Dhaliwal [facility] Start: 06-24-2020 End: 06-24-2020 Subsequent hospital visit by physician Justino Dhaliwal [facility] Start: 06-19-2020 End: 06-19-2020 Subsequent hospital visit by physician Justino Dhaliwal [facility] Start: 06-19-2020 End: 06-19-2020 Subsequent hospital visit by physician Justino Dhaliwal [facility] Start: 06-18-2020 End: 06-18-2020 Subsequent hospital visit by physician Justino Dhaliwal [facility] Start: 06-13-2020 End: 06-13-2020 Subsequent hospital visit by physician [facility] Drawing Room [facility] Comment on above: Arrived Decubitus ulcer of h eel, left, unstageable (HCC) (Primary Dx) Start: 06-12-2020 End: 06-12-2020 Subsequent hospital visit by physician Justino Dhaliwal [facility] Start: 06-06-2020 End: 06-06-2020 Subsequent hospital visit by physician Justino Dhaliwal [facility] Start: 05-30-2020 End: 05-30-2020 Subsequent hospital visit by physician Glenn Martínez Work Phone: [facility] Start: 05-30-2020 End: 05-30-2020 Subsequent hospital visit by physician Justino Dhaliwal [facility] Start: 05-23-2020 End: 05-23-2020 Subsequent hospital visit by physician Justino Dhaliwal [facility] Start: 05-23-2020 End: 05-23-2020 Subsequent hospital visit by physician Justino Dhaliwal [facility] Start: 05-17-2020 End: 05-17-2020 Subsequent hospital visit by physician Justino Dhaliwal [facility] Start: 05-10-2020 End: 05-15-2020 Evaluation and management of inpatient CHELE LAGOS [facility] Start: 05-10-2020 End: 05-15-2020 Evaluation and management of inpatient Chele Lagos Work Phone: [facility] Orthopedics 7K Comment on above: 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); Periprosthetic intertrochanteric fracture of femur, initial encounter Start: 05-09-2020 End: 05-09-2020 Subsequent hospital visit by physician Justino Dhaliwal [facility] Start: 05-08-2020 End: 05-08-2020 Subsequent hospital visit by physician Justino Dhaliwal [facility] Start: 05-03-2020 End: 05-03-2020 Subsequent hospital visit by physician Justino Dhaliwal [facility] Start: 04-10-2020 End: 04-10-2020 Subsequent hospital visit by physician Justino Dhaliwal [facility] Start: 04-02-2020 End: 04-06-2020 Evaluation and management of inpatient Kian Cha Klever [facility] Comment on above: General weakness (Pr imary Dx); Hypokalemia; Malaise; Cellulitis of right upper extremity Start: 03-25-2020 End: 03-25-2020 Subsequent hospital visit by physician Justino Dhaliwal [facility] Start: 03-23-2020 End: 03-23-2020 Emergency department patient visit Forest Baer Work Phone: [facility] ED Comment on above: Pain of left hip bridger nt (Primary Dx) Start: 03-12-2020 End: 03-12-2020 Subsequent hospital visit by physician Justino Dhaliwal [facility] Start: 02-27-2020 End: 02-27-2020 Subsequent hospital visit by physician Justino Dhaliwal [facility] Start: 02-20-2020 End: 02-20-2020 Subsequent hospital visit by physician Justino Dhaliwal [facility] Start: 02-09-2020 End: 02-15-2020 Evaluation and management of inpatient Carlos Carlin Facility:[facility] Start: 02-09-2020 End: 02-09-2020 Emergency department patient visit Mariusz Rodriguez Work Phone: [facility] ED Comment on above: Closed displaced int ertrochanteric fracture of left femur, initial encounter (HCC) (Primary Dx) Start: 02-02-2020 End: 02-02-2020 Subsequent hospital visit by physician [facility] Lab Drawing Room [facility] Comment on above: Arrived Start: 01-26-2020 End: 01-26-2020 Gui Mcgill Work Phone: [facility] Start: 12-29-2019 End: 12-29-2019 Gui Mcgill Work Phone: [facility] [place] [place] Start: 10-30-2019 End: 10-30-2019 Subsequent hospital visit by physician Justino Dhaliwal [facility] Start: 08-11-2019 End: 08-13-2019 Subsequent hospital visit by physician [facility] Lab Drawing Room [facility] Comment on above: Arrived Chronic kidney disea se, stage IV (severe) (HCC) Start: 12-29-2018 End: 12-29-2018 Gui Mcgill Work Phone: [facility] Start: 12-30-2017 End: 12-30-2017 Gui Mcgill Work Phone: [facility] Start: 04-22-2017 End: 04-22-2017 Gui Mcgill Work Phone: [facility] Start: 01-14-2017 End: 01-14-2017 Gui Mcgill Work Phone: [facility] Start: 12-10-2016 End: 12-10-2016 Gui Mcgill Work Phone: [facility] Start: 11-12-2016 End: 11-12-2016 Gui Mcgill Work Phone: [facility] Start: 10-08-2016 End: 10-08-2016 Office outpatient new 60 minutes Gui Mcgill Work Phone: [facility] Procedures Date Procedure Procedure Detail Performing Clinician Start: 09-18-2024 End: 09-18-2024 Computerized ophthalmic imaging retina Luis Al Yara Start: 07-28-2024 Urnls dip stick/tabl et rgnt auto w/o microscopy Bulk Order Provider Start: 06-15-2024 End: 06-15-2024 Computerized ophthalmic imaging retina Luis Liudestinybrodie Start: 01-13-2024 End: 01-13-2024 Computerized ophthalmic imaging retina Lucian Carvalho Jr, MD Start: 01-13-2024 End: 01-13-2024 Fundus Photos No Charge Bilateral Lucian Carvalho Jr, MD Start: 01-04-2024 Bacteria identified in Urine by Culture Start: 12-06-2023 Radiologic exam abdo men 3+ views Ricco Garland MD Work Phone: Start: 12-06-2023 Us retroperitoneal r eal time w/image complete Ricco Garland MD Work Phone: Start: 09-23-2023 Antibody screen RICCO NO BLE Comment on above: Order Comment: Speci men Type: BLOOD SPECIMENOrdering Facility: [facility] Address: [address] [place] [address] Performed By: #### T [id number] ####CC MAIN BLOOD BANKCLIA [id number] [place] [address] [place] Start: 09-08-2023 End: 09-08-2023 Computerized ophthalmic imaging retina Lucian Carvalho Jr, MD Start: 09-08-2023 End: 09-08-2023 Intravitreal Injection Of Phamacologic Agent Lucian Carvalho Jr, MD Start: 09-08-2023 End: 09-08-2023 Vabysmo Faricimab-Svoa 0.1mg Lucian Carvalho Jr, MD Start: 08-31-2023 Urine culture MD Destiny Irwin Work Phone: Start: 06-02-2023 End: 06-02-2023 Computerized ophthalmic imaging retina Lucian Carvalho Jr, MD Start: 06-02-2023 End: 06-02-2023 Intravitreal Injection Of Phamacologic Agent Lucian Carvalho Jr, MD Start: 06-02-2023 End: 06-02-2023 Vabysmo Faricimab-Svoa 0.1mg Lucian Carvalho Jr, MD Start: 05-05-2023 End: 05-05-2023 Bevacizumab injection Lucian Rich Start: 05-05-2023 End: 05-05-2023 Computerized ophthalmic imaging retina Lucian Carvalho Jr, MD Start: 05-05-2023 End: 05-05-2023 Intravitreal Injection Of Phamacologic Agent Luican Carvalho Jr, MD Start: 03-23-2023 End: 03-23-2023 Bevacizumab injection Lucian Rich Start: 03-23-2023 End: 03-23-2023 Computerized ophthalmic imaging retina Lucian Carvalho Jr, MD Start: 03-23-2023 End: 03-23-2023 Intravitreal Injection Of Phamacologic Agent Lucian Carvalho Jr, MD Start: 12-09-2022 End: 12-09-2022 Bevacizumab injection Lucian Rich Start: 12-09-2022 End: 12-09-2022 Computerized ophthalmic imaging retina Lucian Carvalho Jr, MD Start: 12-09-2022 End: 12-09-2022 Intravitreal njx pharmacologic agt spx Lucian Carvalho Jr, MD Start: 09-09-2022 End: 09-09-2022 Bevacizumab injection Lucian Rich Start: 09-09-2022 End: 09-09-2022 Computerized ophthalmic imaging retina Lucian Carvalho Jr, MD Start: 09-09-2022 End: 09-09-2022 Intravitreal njx pharmacologic agt spx Lucian Carvalho Jr, MD Start: 06-10-2022 End: 06-10-2022 Bevacizumab injection Lucian Rich Start: 06-10-2022 End: 06-10-2022 Computerized ophthalmic imaging retina Lucian Carvalho Jr, MD Start: 06-10-2022 End: 06-10-2022 Intravitreal njx pharmacologic agt spx Lucian Carvalho Jr, MD Start: 12-03-2021 End: 12-03-2021 Computerized ophthalmic imaging retina Lucian Carvalho Jr, MD Start: 07-23-2021 End: 07-23-2021 Computerized ophthalmic imaging retina Lucian Carvalho Jr, MD Start: 04-30-2021 End: 04-30-2021 Bevacizumab injection Lucian Rich Start: 04-30-2021 End: 04-30-2021 Computerized ophthalmic imaging retina Lucian Carvalho Jr, MD Start: 04-30-2021 End: 04-30-2021 Intravitreal njx pharmacologic agt spx Lucian Carvalho Jr, MD Start: 03-04-2021 End: 03-04-2021 Bevacizumab injection Lucian Rich Start: 03-04-2021 End: 03-04-2021 Computerized ophthalmic imaging retina Lucian Carvalho Jr, MD Start: 03-04-2021 End: 03-04-2021 Intravitreal njx pharmacologic agt spx Lucian Carvalho Jr, MD Start: 02-04-2021 End: 02-04-2021 Bevacizumab injection Lucian Rich Start: 02-04-2021 End: 02-04-2021 Computerized ophthalmic imaging retina Lucian Carvalho Jr, MD Start: 02-04-2021 End: 02-04-2021 Intravitreal njx pharmacologic agt spx Lucian Carvalho Jr, MD Start: 12-05-2020 Blood count complete auto&auto difrntl wbc [employer] Work Phone: Start: 12-05-2020 C-reactive protein Sana Oceanea Work Phone: Start: 12-05-2020 Assay of blood/uric acid Benahili U Iboaya Work Phone: Start: 12-05-2020 Assay of magnesium Pelican hili U Iboaya Work Phone: Start: 12-05-2020 Assay of parathormone B enahili U Iboaya Work Phone: Start: 12-05-2020 Renal function panel Be nahili U Iboaya Work Phone: Start: 11-07-2020 Blood count complete auto&auto difrntl wbc [employer] Work Phone: Start: 11-07-2020 C-reactive protein Sana Oceanea Work Phone: Start: 11-07-2020 Sedimentation rate r bc automated Manuel Ratnasamy Work Phone: Start: 10-30-2020 Lipid panel Justino F Dany sse Work Phone: Start: 10-23-2020 Blood count complete automated Manuel Cunhaamy Work Phone: Start: 10-23-2020 C-reactive protein Sana jeffreychino Cunhaamy Work Phone: Start: 10-23-2020 Comprehensive metabo lic panel Manuelraymond Cunhaamy Work Phone: Start: 10-23-2020 Sedimentation rate r bc automated Manuel Myersnasamy Work Phone: Start: 09-26-2020 Assay of magnesium [...] Start: 09-18-2020 Sedimentation rate r bc automated Manuelraymodn Myersnasamy Work Phone: Start: 09-11-2020 Blood count complete automated Manuelraymond Myersnasamy Work Phone: Start: 09-11-2020 C-reactive protein Sana jeffreychino Myersnasamy Work Phone: Start: 09-11-2020 Comprehensive metabo lic panel Manuel Ratnasamy Work Phone: Start: 09-11-2020 Sedimentation rate r bc automated Manuel Ratnasamy Work Phone: Start: 09-06-2020 C-reactive protein Sanalucie Myersnasamy Work Phone: Start: 09-06-2020 Comprehensive metabo lic [...] Phone: Start: 08-21-2020 Blood count complete automated Manuelraymond Myersnasamy Work Phone: Start: 08-21-2020 C-reactive protein Sanalucie Cunhaamy Work Phone: Start: 08-21-2020 Comprehensive metabo lic panel Manuelraymond Myersnasamy Work Phone: Start: 08-21-2020 Sedimentation rate r bc automated Manuel Ratnasamy Work Phone: Start: 08-16-2020 Blood count complete automated Manuel Ratnasamy Work Phone: Start: 08-16-2020 C-reactive protein Sana [...] Start: 07-18-2020 Assay of parathormone B enzacharyili Emmett Chew Work Phone: Start: 07-18-2020 Blood count complete automated Benzacharyili U Rockoaselena Work Phone: Start: 07-18-2020 Renal function panel Be nahili U Marianela Work Phone: Start: 07-18-2020 Creatinine other source Benahili U Marianela Work Phone: Start: 07-18-2020 Protein total xcpt refractometry urine Benahili U Marianela Work Phone: Start: 07-18-2020 Urinalysis microscop ic only Benmabel U Marianela Work Phone: Start: 07-18-2020 Urnls dip stick/tabl et rgnt auto w/o microscopy Benzacharyili U Marianela Work Phone: Start: 07-09-2020 Basic metabolic pane l calcium total Justino Dhaliwal Work Phone: Start: 07-01-2020 Basic metabolic pane l calcium total Manuel Kathleen Work Phone: Start: 06-25-2020 Basic metabolic pane l calcium total Manuel Kathleen Work Phone: Start: 06-19-2020 Cul bact xcpt urine blood/stool aerobic isol Justino Dhaliwal Work Phone: Start: 06-19-2020 Lipid panel Justino ramos Work Phone: Start: 06-13-2020 Cul bact xcpt urine blood/stool aerobic isol Glenn Martínez Work Phone: Start: 06-12-2020 Blood count complete automated Manuelraymond Kathleen Work Phone: Start: 06-12-2020 C-reactive protein Sana jeffrey Kathleen Work Phone: Start: 06-12-2020 Comprehensive metabo lic panel Manuelraymond Cunhaamy Work Phone: Start: 06-12-2020 Sedimentation rate r bc automated Manuel Cunhaamy Work Phone: Start: 06-06-2020 Blood count complete automated Manuelraymond Cunhaamy Work Phone: Start: 06-06-2020 C-reactive protein Sana Cunhaamy Work Phone: Start: 06-06-2020 Comprehensive metabo lic panel Manuel Cunhaamy Work Phone: Start: 06-06-2020 Sedimentation rate r bc automated Manuel Cunhaamy Work Phone: Start: 05-30-2020 C-reactive protein Sana Kathleen Work Phone: Start: 05-30-2020 Sedimentation rate r bc automated Manuel Cunhaamy Work Phone: Start: 05-30-2020 Blood count complete auto&auto difrntl wbc Manuel Kathleen Work Phone: Start: 05-30-2020 Comprehensive metabo lic panel Manuel Kathleen Work Phone: Start: 05-23-2020 Blood count complete auto&auto difrntl wbc Manuel Kathleen Work Phone: Start: 05-23-2020 C-reactive protein Sana Kathleen Work Phone: Start: 05-23-2020 Comprehensive metabo lic panel Justino Dhaliwal Work Phone: Start: 05-23-2020 Sedimentation rate r bc automated Manuel Cunhaamy Work Phone: Start: 05-17-2020 Blood count complete auto&auto difrntl wbc Justino Dhaliwal Work Phone: Start: 05-17-2020 Comprehensive metabo lic panel Justino Dhaliwal Work Phone: Start: 05-15-2020 HEMOGLOBIN AND HEMAT OCRIT, BLOOD CHELE LAGOS Start: 05-15-2020 DISCHARGE PATIENT NIKHIL Sarita LAGOS Start: 05-15-2020 Blood count hemoglobin Constantin Escobedo Work Phone: Start: 05-15-2020 INITIATE OXYGEN THER APY PROTOCOL CHELE DEMOND Start: 05-14-2020 HEMOGLOBIN AND HEMAT OCRIT, BLOOD CHELE ARANGOJENELLE Start: 05-14-2020 Blood count hemoglobin Katarina Semaj [place] Work Phone: Start: 05-14-2020 TRANSFUSE RED BLOOD CELLS CHELE DEMOND Start: 05-14-2020 Antibody screen Chele Lagos Comment on above: Performed at [facility] [address] [place] [address] Start: 05-14-2020 PREPARE RBC (CROSSMATCH) CHELE DEMOND Start: 05-14-2020 TYPE AND SCREEN CHELE LAGOS Start: 05-14-2020 FOOT/ANKLE BOOT CHELE LAGOS Start: 05-14-2020 Radex foot complete minimum 3 views CHELE DEMOND Start: 05-14-2020 INITIATE OXYGEN THER APY PROTOCOL CHELE DEMOND Start: 05-14-2020 TRANSFUSION REACTION MANAGEMENT CHELE DEMOND Start: 05-14-2020 VERIFY INFORMED CONSENT CHELE DEMOND Start: 05-14-2020 VITAL SIGNS PER TRANSFUSION PROTOCOL CHELE DEMOND Start: 05-14-2020 Antibody bordetella SARA CRISTOBAL DEMOND Start: 05-14-2020 Basic metabolic pane l calcium total CHELE DEMOND Start: 05-14-2020 Blood count complete auto&auto difrntl wbc CHELE ARANGOJENELLE Start: 05-14-2020 Blood smear peripher al interp phys w/writ report CHELE DEMOND Start: 05-14-2020 Creatinine blood CHELE DEMOND Start: 05-14-2020 Blood typing serologic abo Gheith [...] LAGOS Start: 05-13-2020 Antibody bordetella SARA CRISTOBAL DEMOND Start: 05-13-2020 Basic metabolic pane l calcium total CHELE LAGOS Start: 05-13-2020 Creatinine blood CHELE LAGOS Start: 05-13-2020 MISCELLANEOUS NURSIN G CARE ORDER (SPECIFY) CHELE ARANGOJENELLE Start: 05-13-2020 MONITOR WOUND DRAINAGE CHELE ARANGOJENELLE Start: 05-13-2020 Blood count complete auto&auto difrntl wbc Gheith Eliseo Work Phone: Start: 05-13-2020 Anion gap [Moles/Vol] G heith Eliseo Work Phone: Start: 05-13-2020 Basic metabolic pane l calcium total Gheith Eliseo Work Phone: Start: 05-13-2020 GLOMERULAR FILTRATIO N RATE, ESTIMATED Gheith Eliseo Work Phone: Start: 05-13-2020 INITIATE OXYGEN THER APY PROTOCOL CHELE ARANGOJENELLE Start: 05-13-2020 IP CONSULT TO SOCIAL WORK CHELE DEMOND Start: 05-12-2020 BLADDER SCAN CHELE ARANGO JENELLE Start: 05-12-2020 BLADDER SCAN Gheith You sif Work Phone: Start: 05-12-2020 INITIATE OXYGEN THER APY PROTOCOL CHELE DEMOND Start: 05-12-2020 WOUND OSTOMY EVAL NIKHIL LAGOS Start: 05-12-2020 Antibody bordetella SARA CRISTOBAL CONCHITAJENELLE Start: 05-12-2020 Basic metabolic pane l calcium total CHELE ARANGOJENELLE Start: 05-12-2020 Blood count complete auto&auto difrntl wbc CHELE DEMOND Start: 05-12-2020 Creatinine blood CHELE DEMOND Start: 05-12-2020 WOUND OSTOMY EVAL Nikhil n P Demond Work Phone: Start: 05-12-2020 Anion gap [Moles/Vol] C jonnathan [employer] Work Phone: Start: 05-12-2020 Basic metabolic pane l calcium total Sylvia [employer] Work Phone: Start: 05-12-2020 Blood count complete auto&auto difrntl wbc Sylvia Monte Work Phone: Start: 05-12-2020 GLOMERULAR FILTRATIO N RATE, ESTIMATED Sylvia Monte Work Phone: Start: 05-12-2020 STRAIGHT CATH CHELE ARVIZU MAN Start: 05-12-2020 BLADDER SCAN CHELE ARANGO AN Start: 05-12-2020 BLADDER SCAN Mirian R Kryling Start: 05-11-2020 NURSING COMMUNICATION S MAGDIEL DEMOND Start: 05-11-2020 BLADDER SCAN CHELE IZAGUIRRE Start: [...] Blood count complete auto&auto difrntl wbc Sylvia Monte Work Phone: Start: 05-11-2020 Anion gap [Moles/Vol] C jonnathan Monte Work Phone: Start: 05-11-2020 Basic metabolic pane l calcium total Sylvia [employer] Work Phone: Start: 05-11-2020 GLOMERULAR FILTRATIO N RATE, ESTIMATED Sylvia Monte Work Phone: Start: 05-10-2020 DIET GENERAL CHELE IZAGUIRRE Start: 05-10-2020 IP CONSULT TO HOSPITALIST CHELE LAGOS Start: 05-10-2020 OT EVAL AND TREAT NIKHIL LAGOS Start: 05-10-2020 PLACE INTERMITTENT PNEUMATIC COMPRESSION DEVICE CHELE LAGOS Start: 05-10-2020 PT EVAL AND TREAT NIKHIL LAGOS Start: 05-10-2020 WEIGHT BEARING TOLERATED CHELE ARANGOJENELLE Start: 05-10-2020 FULL CODE CHELE IZAGUIRRE Start: 05-10-[address]FFECT[address]A [address] MALICK LAGOS Start: 05-10-2020 INITIATE OXYGEN THER APY PROTOCOL CHELE ARANGOJENELLE Start: 05-10-2020 INTAKE AND OUTPUT NIKHIL LAGOS Start: 05-10-2020 NEURO/VASCULAR CHECKS S MAGDIEL ARANGOJENELLE Start: 05-10-2020 VITAL SIGNS CHELE IZAGUIRRE Start: 05-10-2020 Radex hip unilateral with pelvis 2-3 views CHELE LAGOS Start: 05-10-2020 PATIENT STATUS (FROM ED OR OR/PROCEDURAL) CHELE DEMOND Start: 05-10-2020 TRANSFER PATIENT CHELE LAGOS Start: 05-10-2020 Cul prsmptv pthgnc organism scrn w/colony estimj CHELE ARANGOJENELLE Start: 05-10-2020 Radex hip unilateral with pelvis 2-3 views Sylvia Monte Work Phone: Start: 05-10-2020 ELEVATE HEELS OFF OF BED CHELE DEMOND Start: 05-10-2020 HEAD OF BED 60 DEGRE ES OR LESS CHELE ARANGOJENELLE Start: 05-10-2020 NURSING COMMUNICATION S MOSESLAMAR ARANGOJENELLE Start: 05-10-2020 TURN PATIENT CHELE IZAGUIRRE Start: 05-10-2020 TYPE AND SCREEN CHELE LAGOS Start: 05-10-2020 End: 05-10-2020 HIP TOTAL ARTHROPLASTY REVISION Chele Lagos Work Phone: Start: 05-10-2020 COVID-19 CHELE CONCHITA IZAGUIRRE Start: 05-10-2020 Antibody screen Chele Demond Comment on above: Performed at [facility] [address] [place] [id number] Start: 05-10-2020 Blood typing serologic abo Chele Lagos Work Phone: Start: 05-10-2020 COVID-19 Chele garcia Work Phone: Start: 05-09-2020 Basic metabolic pane l calcium total Chele Lagos Work Phone: Start: 05-09-2020 Blood count complete automated Chele Lagos Work Phone: Start: 05-08-2020 Urinalysis microscop ic only Adelaida Acosta Work Phone: Start: 05-08-2020 Urnls dip stick/tabl et rgnt auto w/o microscopy Adelaida Acosta Work Phone: Start: 05-03-2020 Basic metabolic [...] Phone: Start: 04-03-2020 Assay of lactate Ricco Noel louisa Gonzalo Work Phone: Start: 04-03-2020 Assay of magnesium [...] Klever Start: 04-02-2020 Assay of magnesium Mariusz E Michael Work Phone: Start: 04-02-2020 BASIC METABOLIC PANE L W/ REFLEX TO MG FOR LOW K Mariuszsarita Rodriguez Work Phone: Start: 04-02-2020 Ecg routine ecg w/le ast 12 lds i&r only Kian Cha Klever Start: 04-02-2020 EKG REPORT Hpf Scanni ng Start: 04-02-2020 Assay of troponin quantitative Kian Ernst Start: 04-02-2020 Assay of troponin quantitative Kian Semaj Klever Start: 04-02-2020 Basic metabolic pane l calcium total Kian Semaj Klever Start: 04-02-2020 Blood count complete auto&auto [...] Justino Dhaliwal Work Phone: Start: 03-23-2020 COVID-19 [employer] deborah Work Phone: Start: 03-23-2020 Radex [...] spine w/ o contrast material Mariusz Latanya [employer] Work Phone: Start: 02-09-2020 Ct head/brain w/o co ntrast material Mariusz E [employer] Work Phone: Start: 02-09-2020 Radex hip unilateral with pelvis 2-3 views Marisuz E [employer] Work Phone: Start: 02-09-2020 Radiologic exam ches t single view Mariusz Latanya [employer] Work Phone: Start: 02-09-2020 Blood count complete auto&auto difrntl wbc Mariusz E [employer] Work Phone: Start: 02-09-2020 Prothrombin time Mariusz Rodriguez Work Phone: Start: 02-09-2020 Thromboplastin time [...] reagent auto microscopy Benahili U Iboaya Start: 01-26-2020 End: 01-26-2020 Computerized ophthalmic imaging retina Lucian Carvalho Jr, MD Start: 01-26-2020 End: 01-26-2020 Eylea 1mg Pre-filled Syringe Lucian Carvalho Jr, MD Start: 01-26-2020 End: 01-26-2020 Intravitreal njx pharmacologic agt spx Lucian Carvalho Jr, MD Start: 12-29-2019 End: 12-29-2019 Aflibercept injection Lucian Rich Start: 12-29-2019 End: 12-29-2019 Computerized ophthalmic imaging retina Lucian Carvalho Jr, MD Start: 12-29-2019 End: 12-29-2019 Intravitreal njx pharmacologic agt spx Lucian Carvalho Jr, MD Start: 10-30-2019 Assay of blood/uric acid Benahili U Iboaya Start: 10-30-2019 Assay of magnesium Pelican hili U Iboaya Start: 10-30-2019 Assay of [...] B12 & FOLATE Be nahili U Iboaya Start: 12-29-2018 End: 12-29-2018 Computerized ophthalmic imaging retina Lucian Carvalho Jr, MD Start: 12-30-2017 End: 12-30-2017 Computerized ophthalmic imaging retina Lucian Carvalho Jr, MD Start: 04-22-2017 End: 04-22-2017 Computerized ophthalmic imaging retina Lucian Carvalho Jr, MD Start: 01-14-2017 End: 01-14-2017 Bevacizumab injection Lucian Rich Start: 01-14-2017 End: 01-14-2017 Computerized ophthalmic imaging retina Lucian Carvalho Jr, MD Start: 01-14-2017 End: 01-14-2017 Intravitreal njx pharmacologic agt spx Lucian Carvalho Jr, MD Start: 12-10-2016 End: 12-10-2016 Bevacizumab injection Lucian Rich Start: 12-10-2016 End: 12-10-2016 Computerized ophthalmic imaging retina Lucian Carvalho Jr, MD Start: 12-10-2016 End: 12-10-2016 Intravitreal njx pharmacologic agt spx Lucian Carvalho Jr, MD Start: 11-12-2016 End: 11-12-2016 Bevacizumab injection Lucian Rich Start: 11-12-2016 End: 11-12-2016 Computerized ophthalmic imaging retina Lucian Carvalho Jr, MD Start: 11-12-2016 End: 11-12-2016 Intravitreal njx pharmacologic agt spx Lucian Carvalho Jr, MD Start: 10-08-2016 End: 10-08-2016 Bevacizumab injection Lucian Rich Start: 10-08-2016 End: 10-08-2016 Fluorescein angrph w/multiframe i&r uni/bi Lucian Carvalho Jr, MD Start: 10-08-2016 End: 10-08-2016 Intravitreal njx pharmacologic agt spx Lucian Carvalho Jr, MD History of operative procedure on knee History of knee replacement Comment on above: leftProblem List atilio an-up per request of Phys. EHR Cmte Plan of Treatment Date Care Activity Detail Author Start: 10-21-2026 Diabetes Screening Diabetes Screenin g [facility] Start: 06-12-2025 Jesús Nolan/ 1year DFE/ OCT [facility] Work Phone: Start: 12-20-2024 End: 12-20-2024 Patient encounter procedure 12/20/2024 10:40 AM EDT Office Visit NEVA OLIVA [address] [place] [phone] Michelle Henson NP [address] [place] [phone] NEVA BAPTISTE Start: 11-02-2024 End: 11-02-2024 Patient encounter procedure 11/02/2024 2:00 PM EST Office Visit NEVA OLIVA [address] [place] [phone] Adelaida Hudson DO [address] [place] [id number] Arrived NEVA BAPTISTE Comment on above: Arrived Start: 06-09-2024 End: 06-09-2024 Patient encounter procedure Radiology Comment on above: XR ABDOMEN 3V KUB W/ OBLIQUES per checkout US KIDNEY/BLADDER pe r checkout 6 month f/u for neph rolithiasis per checkout Start: 05-28-2024 Covid-19 Vaccine ( season) Covid-19 Vaccine ( season) [facility] Start: 05-28-2024 Influenza vaccination C [facility] Start: 10-23-2023 Diabetes Screening Diabetes Screenin g [facility] Start: 09-27-2023 Advance Directive Discussion Advance Directive Discussion [facility] Start: 09-27-2023 Behavioral Health Screening Behavioral Health Screening [facility] Start: 09-27-2023 Depression Assessment Depression Ass [facility] Start: 08-31-2023 End: 08-31-2023 [facility] Start: 08-31-2023 Plain chest X-ray XR chest 2V* [facility] Start: 08-31-2023 XR Chest 2 Views [facility] Start: 08-31-2023 CT Abdomen and Pelvi s WO contrast [facility] Start: 08-31-2023 CT of abdomen and pe lvis without contrast CT abdomen pelvis wo con [facility] Start: 08-31-2023 CT of head without contrast CT head/brain wo [facility] Start: 08-31-2023 CT Unspecified body region WO contrast [facility] Start: 08-31-2023 [facility] Start: 05-28-2023 Covid-19 Vaccine ( season) Covid-19 Vaccine ( season) [facility] Start: 05-28-2023 Influenza vaccination Influenza Vacc ine (#1) [facility] Start: 09-27-2022 Advance Directive Discussion Advance Directive Discussion [facility] Start: 09-27-2022 Depression Assessment Depression Ass essment [facility] Start: 12-05-2021 Creatinine [facility] Start: 12-05-2021 Potassium monitoring Potassium monit [facility] [employer] Phone: Start: 10-30-2021 Lipid panel Lipid screen [facility] [employer] Phone: Start: 10-23-2021 Creatinine measurement Creatinine mo [place] Start: 10-23-2021 Potassium monitoring Potassium monit [facility] [place] Start: 09-26-2021 Creatinine measurement Creatinine mo [place] Start: 09-26-2021 Potassium monitoring Potassium monit [place] Start: 09-18-2021 Creatinine measurement Creatinine mo [place] Start: 09-18-2021 Potassium monitoring Potassium monit [place] Start: 09-11-2021 Creatinine measurement Creatinine mo [place] Start: 09-11-2021 Potassium monitoring Potassium monit [place] Start: 06-19-2021 Lipid panel Lipid screen [place], [place] Start: 05-28-2021 Influenza vaccination [employer] Phone: Start: 04-05-2021 Creatinine measurement Creatinine mo [place] Start: 04-05-2021 Potassium monitoring Potassium monit [place] Start: 03-23-2021 Creatinine measurement Creatinine mo [place] Start: 03-23-2021 Potassium monitoring Potassium monit [place] Start: 03-12-2021 Creatinine measurement Creatinine [place] Start: 03-12-2021 Potassium monitoring Potassium [place] Start: 02-26-2021 Creatinine measurement Creatinine [place] Start: 02-26-2021 Potassium monitoring Potassium monit [place] Start: 02-19-2021 Creatinine measurement Creatinine [place] Start: 02-19-2021 Potassium monitoring Potassium monit [place] Start: 02-08-2021 Creatinine measurement Creatinine [place] Start: 02-08-2021 Potassium monitoring Potassium monit [place] Start: 02-01-2021 Creatinine measurement Creatinine [place] Start: 02-01-2021 Potassium monitoring Potassium monit [place] Start: 10-30-2020 Creatinine measurement Creatinine mo [place]itoring [place], [place] Start: 10-30-2020 Potassium monitoring Potassium monit [place] Start: 09-12-2020 End: 09-12-2020 Appointment 09/12/2020 Appointment Wound OstGlenn Gonzalez, DPM 27 [facility] [address] [place], [place] [id number] [facility] Start: 08-15-2020 End: 08-15-2020 Appointment 08/15/2020 Appointment Wound Ostomy Glenn Martínez, DPM [address] [place] [address] [phone] [facility] Start: 08-11-2020 Creatinine monitoring Creatinine mon [place]oring [place] Start: 08-11-2020 Potassium monitoring Potassium monit [place] Start: 07-18-2020 End: 07-18-2020 Appointment 07/18/2020 Appointment Wound OstGlenn Gonzalez, DPM 27 [facility] [address] [place] [address] [phone] [facility] Start: 06-27-2020 End: 06-27-2020 Appointment 06/27/2020 Appointment Wound Glenn Camargo, DPM 27 [facility] [address] [place], [place] [id number] [facility] Start: 06-13-2020 End: 06-13-2020 Appointment 06/13/2020 Appointment Wound Ostomy Glenn Martínez, DPM 27 [facility] [address] [place] [address] [facility] Start: 05-28-2020 Influenza vaccination [place] Start: 05-28-2019 Influenza vaccination Flu vaccine (# 1) [place] Start: 03-17-2019 Annual Wellness Visi t (AWV) Annual Wellness Visit (AWV) [place] Start: 03-08-2019 Creatinine monitoring Creatinine mon [place]oring [place] Start: 03-08-2019 Lipid panel Lipid [place] Start: 03-08-2019 Lipid screen Lipid [place] Start: 03-08-2019 Potassium monitoring Potassium monit [place]ing [place] Start: 2012 RSV Vaccine (1 - 1-d ose 75+ series) RSV Vaccine (1 - 1-dose 75+ series) [facility] Start: 2002 DEXA (modify frequen cy per FRAX score) DEXA (modify frequency per FRAX score) [place] Start: 2002 Pneumococcal 65+ yea rs Vaccine (1 of 1 - PPSV23) Pneumococcal 65+ years Vaccine (1 of 1 - PPSV23) [place] Start: 2002 Pneumococcal 65+ yrs at Risk Vaccine (1 of 2 - PCV13) Pneumococcal 65+ yrs at Risk Vaccine (1 of 2 - PCV13) [place] Start: 2002 Pneumococcal Vaccine : 65+ (1 - PCV) Pneumococcal Vaccine: 65+ (1 - PCV) [facility] Start: 2002 Pneumococcal Vaccine : 65+ (1 of 1 - PCV) Pneumococcal Vaccine: 65+ (1 of 1 - PCV) [facility] Start: 2002 Screening for osteoporosis Bone Density Screening [facility] Start: 1997 RSV Vaccine (1 - 1-d ose 60+ series) RSV Vaccine (1 - 1-dose 60+ series) [facility] Start: 1992 Screening for osteoporosis DEXA (modify frequency per FRAX score) [place] Start: 1987 Shingles Vaccine (1 of 2) Galindo gles Vaccine (1 of 2) [place] Start: 1987 Shingrix Vaccine (1 of 2) Galindo grix Vaccine (1 of 2) [facility] Start: 1956 DTaP/Tdap/Td vaccine (1 - Tdap) DTaP/Tdap/Td vaccine (1 - Tdap) [place] Start: 1956 Urine microalbumin profile DTaP,Tdap,Td Vaccine (1 - Tdap) [facility] Start: 1955 Depression Screening Depression Scre ening [facility] Start: 1953 COVID-19 Vaccine (1 of 2) COVI D-19 Vaccine (1 of 2) [place] Start: 1949 COVID-19 Vaccine (1) COVID-19 Vaccin e (1) [facility] Work Phone: Start: 1948 DTaP/Tdap/Td vaccine (1 - Tdap) DTaP/Tdap/Td vaccine (1 - Tdap) [place] Start: 02-07-1938 Covid-19 Vaccine (#1) Covid-19 Vacci ne (#1) [facility] Bacteria identified in Blood by Culture [facility] Bacteria identified in Urine by Culture [facility] Bacteria identified in Urine by Culture URINE CULTURE Microbiology Routine Nephrolithiasis Ordered: 07/28/2024 [facility] Work Phone: Comment on above: Ordered: 07/28/2024 CBC auto differential CBC auto d ifferential Lab Routine Daily until discontinued starting 04/05/2020, 2 completed [place] Comment on above: Daily until disconti nued starting 04/05/2020, 2 completed Comprehensive metabo lic 2000 panel Comprehensive metabolic panel Lab Routine Daily until discontinued starting 04/05/2020, 2 completed [place] Comment on above: Daily until disconti nued starting 04/05/2020, 2 completed End: 01-06-2025 CT Abdomen and Pelvis WO contrast CT FLANK WO IVCON Radiology STAT Nephrolithiasis 1 Occurrences starting 12/08/2023 until 01/06/2025 [facility] Work Phone: Comment on above: 1 Occurrences starti ng 12/08/2023 until 01/06/2025 Culture, Anaerobic a nd Aerobic Culture, Anaerobic and Aerobic Microbiology Routine 05/10/2020 1:31 PM EDT [place] Culture, Blood 1 [place] End: 04-10-2020 Culture, Urine Culture, Urine Microbiology Routine Once for 1 Occurrences starting 04/10/2020 until 04/10/2020 [place] Comment on above: Once for 1 Occurrenc es starting 04/10/2020 until 04/10/2020 Culture, Urine [place] End: 05-08-2020 Culture, Urine Culture, Urine Microbiology Routine Once for 1 Occurrences starting 05/08/2020 until 05/08/2020 [place] Comment on above: Once for 1 Occurrenc es starting 05/08/2020 until 05/08/2020 End: 08-09-2020 Culture, Urine Culture, Urine Microbiology Routine Once for 1 Occurrences starting 08/09/2020 until 08/09/2020 [place] Comment on above: Once for 1 Occurrenc es starting 08/09/2020 until 08/09/2020 End: 08-27-2020 Culture, Urine Culture, Urine Microbiology Routine Once for 1 Occurrences starting 08/27/2020 until 08/27/2020 [place] Comment on above: Once for 1 Occurrenc es starting 08/27/2020 until 08/27/2020 Culture, Wound [place] Hemoglobin and Hematocrit, Blood, Post Transfusion Hemoglobin and Hematocrit, Blood, Post Transfusion Lab Routine Post Transfusion Post Transfusion Post Transfustion for 1 Occurrences starting 05/14/2020 [place] Comment on above: Post Transfusion Pos t Transfusion Post Transfustion for 1 Occurrences starting 05/14/2020 Initiate Oxygen Ther apy Protocol Initiate Oxygen Therapy Protocol Respiratory Care Routine Daily until discontinued starting 04/03/2020 [place] Comment on above: Daily until disconti nued starting 04/03/2020 End: 08-11-2019 Iron and TIBC Iron and TIBC Lab Routine Once for 1 Occurrences starting 08/11/2019 until 08/11/2019 [place] Comment on above: Once for 1 Occurrenc es starting 08/11/2019 until 08/11/2019 Iron and TIBC Iron and TIBC La b Routine 08/11/2019 10:35 AM EST [place] End: 10-07-2024 Kidney img morphology vascular flow 1 w/rx NM RENAL FLOW/FXN W PHARM Radiology Routine Hydronephrosis with urinary obstruction due to renal calculus 1 Occurrences starting 09/08/2023 until 10/07/2024 [facility] Work Phone: Comment on above: 1 Occurrences starti ng 09/08/2023 until 10/07/2024 Oxygen therapy [[facility] Data Set] Initiate Oxygen Therapy Protocol Respiratory Care Routine Daily until discontinued starting 05/11/2020 [facility] SHREYA Comment on above: Daily until disconti nued starting 05/11/2020 PREPARE RBC (CROSSMA TCH), 1 Units PREPARE RBC (CROSSMATCH), 1 Units Blood Bank Non-Stat 05/14/2020 8:58 AM EDT [facility], [facility]REYA Transfuse erythrocyt es [Vol] Transfuse RBC Nursing Transfusion Routine 05/14/2020 11:30 AM EDT [facility], [facility] URINALYSIS, REFLEX MICROSCOPIC URINALYSIS, REFLEX MICROSCOPIC Lab Routine Screening for genitourinary condition Ordered: 12/06/2023 [facility] Work Phone: Comment on above: Ordered: 12/06/[address] [facility] End: 01-05-2025 US Kidney - bilateral and Urinary bladder US KIDNEY/BLADDER Radiology Routine Nephrolithiasis 1 Occurrences starting 12/06/2023 until 01/05/2025 [facility] Work Phone: Comment on above: 1 Occurrences starti ng 12/06/2023 until 01/05/2025 End: 08-27-2025 US Kidney - bilateral and Urinary bladder US KIDNEY/BLADDER Radiology Routine Nephrolithiasis Renal cyst 1 Occurrences starting 07/28/2024 until 08/27/2025 [facility] Comment on above: 1 Occurrences starti ng 07/28/2024 until 08/27/2025 End: 01-04-2025 XR Abdomen GE 3 Views AP and Oblique and Cone XR ABDOMEN 3V KUB W/OBLIQUES Radiology Routine Nephrolithiasis 1 Occurrences starting 12/06/2023 until 01/04/2025 [facility] Work Phone: Comment on above: 1 Occurrences starti ng 12/06/2023 until 01/04/2025 End: 08-27-2025 XR Abdomen GE 3 Views AP and Oblique and Cone XR ABDOMEN 3V KUB W/OBLIQUES Radiology Routine Nephrolithiasis 1 Occurrences starting 07/28/2024 until 08/27/2025 [facility] Comment on above: 1 Occurrences starti ng 07/28/2024 until 08/27/2025 [facility] Payers Date Payer Category Payer Self-pay 2023 Medicaid [id number] 2023 Unknown [id number] 2022 Medicaid [id number] 2020 Unknown 2017 Medicare BCBS MEDICARE AN THEM MEDIBLUE ESSENTIAL/PLUS xxxxxxxxxxxx 2017-Present [address] [address] [place] [address] xxxxxxxxxxxx [id number] 2017 Medicare BCBS MEDICARE AN THEM MEDIBLUE ESSENTIAL/PLUS [id number] 2017-Present [address] [address] [place] [address] [id number] 2002 Medicare 2002 Medicare [id number] 2002 Medicare [id number] 1959 Medicare [id number] .[id number] 1937 Unknown [id number] 2.16.840.1.596072.3.579.2.93 1937 Unknown [id number] 2.16.840.1.280448.3.579.2.196 1937 Unknown [id number] 2.16.840.1.650993.3.579.2.593 1937 Unknown [id number] 2.16.840.1.877435.3.579.2.173 1937 Unknown [id number] 2.16.840.1.222546.3.579.2.173 1937 Unknown [id number] 2.16.840.1.572985.3.579.2.173 1937 Unknown [id number] 2.16.840.1.334181.3.579.2.173 1937 Unknown [id number] 2.16.840.1.012138.3.579.2.173 1937 Unknown [id number] 2.16.840.1.864962.3.579.2.173 1937 Unknown [id number] 2.16.840.1.376624.3.579.2.173 1937 Unknown [id number] 2.16.840.1.648705.3.579.2.173 1937 Unknown [id number] 2.16.840.1.525058.3.579.2.173 1937 Unknown [id number] 2.16.840.1.123211.3.579.2.173 1937 Unknown [id number] 2.16.840.1.810496.3.579.2.727 1937 Unknown [id number] 2.16.840.1.040652.3.579.2.727 1937 Unknown [id number] 2.16.840.1.220495.3.579.2.134 7 1937 Unknown [id number] 2.16.840.1.961873.3.579.2.134 7 1937 Unknown [id number] 2.16.840.1.096139.3.579.2.125 9 1937 Unknown [id number] 2.16.840.1.275535.3.579.2.125 9 1937 Unknown [id number] 2.16.840.1.875952.3.579.2.125 9 1937 Unknown [id number] 2.16.840.1.348026.3.579.2.125 9 1937 Unknown [id number] 2.16.840.1.515744.3.579.2.125 9 1937 Unknown [id number] 2.16.840.1.037609.3.579.2.125 9 1937 Unknown [id number] 2.16.840.1.678940.3.579.2.125 9 1937 Unknown [id number] 2.16.840.1.551360.3.579.2.125 9 Unknown [id number] 2.16.840.1.393390.3.579.2.531 Social History Date Type Detail Facility Start: 09-27-2017 End: 09-09-2023 Tobacco smoking status NHIS Never smoker [facility] Start: 09-27-2017 End: 09-12-2020 Alcohol intake Current non-drinker of alcohol (finding) [facility] Start: 1935 Sex Assigned At Not on file [facility] Exposure to SARS-CoV-2 (event) Unable to assess [facility] Start: 04-03-2020 End: 09-07-2023 Tobacco use and exposure Never used [facility] Exposure to SARS-CoV-2 (event) Not sure [facility] Exposure to SARS-CoV-2 (event) Yes [facility] Start: 09-07-2023 End: 12-06-2023 Sex Assigned At [employer] Other Start: 1935 Sex Assigned At Female [facility] Start: 09-07-2023 End: 12-06-2023 History of Social function [facility] National Score (1-100), lower number is lower risk 63 [facility] Start: 12-06-2023 Alcohol intake Lifetime non-d denise (finding) [facility] Start: 08-16-2024 Sex Female (finding) [facility] Tobacco smoking status NHIS Tobacco smoking consumption unknown [facility] NEGATED: Highlighted rowStart: 09-18-2024 Tobacco smoking status NHIS Unknown if ever smoked [facility] NEGATED: Highlighted rowStart: 09-18-2024 Alcohol intake Alcohol Use Details [facility] NEGATED: Highlighted rowStart: 09-18-2024 History of tobacco use Current non-smoker [facility] Medical Equipment Procedure Code Equipment Code Equipment [...] 05-10-2020 Stent Inlay Opti ma 7fr Taper Te-Moak Green Polymer Phreecoat 24cm Ureteral - [id number] Start: 10-18-2023 Clinical Notes 05-26-2023 to 11-02-2024 Adelaida Hudson DO - 11/02/2024 2:00 PM EST Note Date & Type Note Facility 11-02-2024 History of Presen t illness Narrative Images from the original note were not included. Chief Complaint: hallucinations Subjective Jesús Gase, 89 y.o., female Patient presents today for a neurologic consult at the request of Dr. Brina Cordero for visual hallucinations. Patient is accompanied by her daughter. He daughter states she has always had hallucinations with UTI's. She states for a few months without having a UTI she has been seeing things. She knows these things are not real but she is seeing things daily. This has worsened within the last month. She is seeing people, animals and plants. Her daughter states things are always coming from under the fridge. She also thinks things are always dirty. This is beginning to affect her sleep. She is living at [facility] assisted living currently. Review of Systems Constitutional: Negative for appetite change, fatigue and fever. Respiratory: Negative for cough, shortness of breath and wheezing. Cardiovascular: Negative for chest pain, palpitations and leg swelling. Gastrointestinal: Negative for abdominal pain, constipation, diarrhea and nausea. Musculoskeletal: Negative for arthralgias, gait problem and myalgias. Neurological: Negative for dizziness, tremors, numbness and headaches. No past medical history on file. No past surgical history on file. No family history on file. Social History Tobacco Use Smoking status: Not on file Smokeless tobacco: Not on file Substance Use Topics Alcohol use: Not on file Allergies: Patient has no known allergies. Vitals: 11/02/24 1411 BP: 130/84 Pulse: 80 SpO2: 98% There is no height or weight on file to calculate BMI. weight: 138 lb Neurologic exam: Mental status: Awake, alert to person, place and time. Impaired Luria 3 step. Impaired 3 object recall. Language is fluent without aphasia. Attention and concentration are normal. Fund of knowledge is appropriate for level of education. Cranial nerves: CN II: Visual acuity is substantially decreased secondary to the patient's history of macular degeneration. Visual robles full to confrontation. CN III, IV, : pupils equal round and reactive to light. Extraocular movements intact. No ptosis present. CN V: Facial sensation is normal. CN VII: Full and symmetric facial movement. CN VIII: Substantial hearing loss bilaterally CN IX and X: Palate elevates symmetrically. CN XI: Shoulder shrug is normal bilaterally. CN XII: Tongue is midline without atrophy or fasciculation. Motor: RUE Strength deltoid, , biceps , triceps , wrist extensors , wrist flexor , clinical product specialist strength 5/5. LUE Strength deltoid , biceps , triceps , wrist extensors , wrist flexor , clinical product specialist strength 5/5. RLE Strength illopsoas, quadriceps, tibialis anterior, and gastrocnemius strength 5/5. LLE Strength illopsoas, quadriceps, tibialis anterior, and gastrocnemius strength 5/5. Normal tone x4 extremities. Bulk is normal. Sensory: Sensation is intact to light touch throughout Four extremities. Reflexes: RUE biceps reflex 1+ brachioradialis reflex 1+ . LUE biceps reflex 1+ brachioradialis reflex 1+ . RLE knee reflex 0 . LLE knee reflex 0 . Mahmood's sign negative. 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 I believe this did least be moderate in severity. It appears to be late in onset. One of the patient's primary complaint is that of visual hallucinations. Additional differential diagnosis could certainly include Lewy body dementia however I do not clearly identify further parkinsonian-type features. Her primary complaint is that of visual hallucinations which are scary and troubling for her. CT of the brain does not identify any acute intracranial pathology that would be responsible for her concerns. There is atrophy which would be consistent with this neurodegenerative process. Plan: Start seroquel 12.5 mg po BID. Side effects discussed in detail. Patient understands and wishes to proceed. I do not believe the patient to be an ideal candidate for Namenda or Aricept at this time given the severity of her condition, her age and her otherwise quite extensive medication list The patient's daughter was present for the visit today and provided additional history and is in full agreement with the plan. The patient does live in assisted living. We are going to call their assisted living facility and update them with our recommendations and facts are note there. 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 Bilateral [facility] Work Phone: [phone] History of Present illness Narrative* Encounter Date Complaint History Of Prese nt Illness macular degeneration The 89 year old patient presents for evaluation of macular degeneration in the right and left eyes. The patient complains of decreased vision OS>OD starting about 1mth ago. The patient describes her vision as hazy and blurry. The patient also is starting to see things that aren't there. macular degeneration The 88 year old female presents for evaluation of macular degeneration in the right and left eyes. The patient reports no change in vision in the right and left eyes. She complains of a gritty dixie feeling at times. Also sometimes her right eye will hurt. Not very often. denies any redness. 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 Patient denies any changes in her vision. Patient states that right now she is not seeing any floaters or flashes of light. Patients daughter states she was using some type of eye drop last week as she had a infection in her eyes, but they can not remember the name of the medication. AMD The 88 year old female presents for management and 3 month follow up of AMD in the right and left eyes. Pt reports no changes in vision she thinks the lower lid area is puffier than the other. She denies flashes and floaters, and ocular pain but water often. 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 Patient states that the vision is the same as last month. Patient does say she see;s some small back floaters. AMD The 87 year old female presents for evaluation and treatment of AMD in the right and left eyes. Patient states her vision seems to be gradually getting worse since her last appointment. She denies flashes of light and floaters. AMD The 87 year old female presents for management of AMD in the right and left eyes. Patient reports worsened vision in both eyes due to cloudiness, she states it has been going on for about 2 months. Patient denies flashes and eye pain but experiences floaters in both eyes. AMD The 87 year old female presents for evaluation and treatment of AMD in the right and left eyes. Avastin OU. Pt reports a few weeks ago had floaters OD, but no flashes of light or ocular pain. Exudative ARMD The 87 year old female presents for 3 month evaluation . Exudative ARMD The 86 year old female presents for a six month evaluation. Patient states there has been a decrease in her vision over the last few months . Denies flashes of light , but see's floaters in her right eye. macular degeneration followup Th e 86 year old female presents for evaluation of macular degeneration in both eyes. The patient reports stable blurry vision since last exam 4 months ago. The patient denies eye pain and flashes. 2 mo INJ 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 The 85 y ear old female is present for her 2 mo INJ 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 OS. AMD The 85 year old female presents for evaluation of AMD in both eyes. Injection only Avastin left eye. 4 wk INJ 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 The 85 y ear old female is present for her 4 wk INJ 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 OS. decrease in vision The patient s tates she has had a decrease in vision in OS sense her appt 6 months ago. She states she has to sit closer to to the TV to see. She states she does not have any more floaters. She states it effects mostly her distance vision. 6 month fu due to ex dtve AMD w/ actv chrdl neovas The 85 year old female is present for her 6 month fu due to exdtve AMD w/ actv chrdl neovas OS. macular degeneration The 84 year old female presents for macular degeneration in both eyes. stable vision The patient repo rts stable vision in both eyes since last visit 5 months ago. It occurs constantly. It affects both near and distance vision. The symptom is all of the time. The condition is mild. In addition, the condition is associated with daily activities and chores. Patient denies flashes and floaters. macular degeneration The 84 year old female presents for macular degeneration in both eyes. stable vision The patient repo rts stable vision in both eyes since last visit 1 month ago. It occurs constantly. It affects both near and distance vision. The symptom is all of the time. The condition is mild. In addition, the condition is associated with daily activities and chores. Patient denies flashes and floaters. AMD The 84 year old female presents for evaluation of wet AMD in the left eye. fuzzy vision The patient is p resent for evaluation of fuzzy vision in the left eye. stable vision The patient repo rts stable vision in the right eye and left eye. It started about 1 year ago. It occurs all the time. It affects both near and far vision. The symptom is constant. macular degeneration The 83 year old female presents for evaluation of macular degeneration in the right eye and left eye. denies new vision change The pat ient denies new vision change in the right eye and left eye since her last exam about 8 months ago . It affects both near and far vision. The symptom is constant. The condition is stable. The patient believes that new good glasses could improve her vision in the left eye. macular degeneration The 82 year old female presents for evaluation of macular degeneration in the right eye and left eye. denies vision change The patient denies vision change in the right eye and left eye. It started about 3 months ago . It affects both near and far vision. The patient denies flashes, eye pain, floaters. macular degeneration The 81 year old female presents for evaluation of macular degeneration in the right eye and left eye. no change Patient denies a ny vision change in either eye since her last visit 1 month ago. Patient denies any new flashes, floater or eye pain. macular degeneration The 81 year old female presents for evaluation of macular degeneration in the right eye and left eye. macular degeneration The 81 year old female presents for treatment of macular degeneration in the right eye. an injection only The 81 year ol d female presents for an injection only in the right eye. stable vision The patient repo rts stable vision in the left eye. decreased vision The patient com plains of decreased vision in the right eye. It started about 7 months ago, following cataract surgery and then new glasses. The onset was gradual. It affects both near and far vision. The symptom is constant. It occurs all the time. The condition is severe. The condition is described as blurring and dark. possible macular degeneration Th e 81 year old female presents for evaluation of possible macular degeneration in the right eye and left eye, as referred by Dr. Davis. 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 Impression/Plan Related to Dry e yes, bilateral Impression/Plan Related to PVD ( posterior vitreous detachment), both eyes Impression/Plan Related to HTN Impression/Plan Related to Prese nce of intraocular lens Impression/Plan Related to 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 Impression/Plan Related to HTN Impression/Plan Related to Prese nce of intraocular lens Impression/Plan Related to 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, bi, with actv chrdl neovas Impression/Plan Related to HTN Impression/Plan Related to Prese nce of intraocular lens Impression/Plan Related to 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, bi, with actv chrdl neovas Impression/Plan Related to 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, bi, with actv chrdl neovas Return in 4-5 week(s ) with Cindy Miranda MD for IO VAB OU w/OCT Related to 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 degn, bi, with actv chrdl neovas Impression/Plan Related to 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, bi, with actv chrdl neovas Impression/Plan Related to 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, bi, with actv chrdl neovas Impression/Plan Related to 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, bilateral, with inactive scar Impression/Plan Related to Prese nce of intraocular lens Impression/Plan Related to HTN Impression/Plan Related to 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, bilateral, with inactive scar Return 3 months FU/O CT/Poss AVN OU/ Dilate OU Related to 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 degn, bilateral, with inactive scar Impression/Plan Related to 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, bilateral, with inactive scar Impression/Plan Related to Prese nce of intraocular lens Impression/Plan Related to HTN Return 6 months eval and OCT Rel ated to 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 degn, bilateral, with inactive scar Impression/Plan Related to 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, bilateral, with inactive scar Impression/Plan Related to Cysts of right lower eyelid Impression/Plan Related to Prese nce of intraocular lens Impression/Plan Related to HTN Return in 4 months w ith Gui Mcgill MD for follow up and OCT Related to 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 degn, bilateral, with inactive scar Impression/Plan Related to Prese nce of intraocular lens Impression/Plan Related to HTN Impression/Plan Related to 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, bilateral, with inactive scar Return in Related to Exdtv e age-rel mclr degn, left eye, with actv chrdl neovas Impression/Plan Related to Exdtv e age-rel mclr degn, left eye, with actv chrdl neovas Return in 2 months w ith Gui Mcgill MD for INJ AVN OS w/OCT Related to Exdtve age-rel mclr degn, left eye, with actv chrdl neovas Impression/Plan Related to Exdtv e age-rel mclr degn, left eye, with actv chrdl neovas Return in 1 month wi Gui Mcgill MD for INJ AVN OS w/OCT Related to Exdtve age-rel mclr degn, left eye, with actv chrdl neovas Impression/Plan Related to HTN Impression/Plan Related to Prese nce of intraocular lens Impression/Plan Related to 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, right eye, with inactive scar Impression/Plan Related to Exdtv e age-rel mclr degn, left eye, with actv chrdl neovas Return in 6 months w ith uGi Mcgill MD for follow up and OCT Related to Exdtve age-rel mclr degn, left eye, with actv chrdl neovas Impression/Plan Related to Exdtv e age-rel mclr degn, left eye, with actv chrdl neovas Impression/Plan Related to HTN Impression/Plan Related to Prese nce of intraocular lens Impression/Plan Related to Age-r elated nuclear cataract, left eye Impression/Plan Related to 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, right eye, with inactive scar Impression/Plan Related to Exdtv e age-rel mclr degn, left eye, with actv chrdl neovas - 4 week(s) Gui Mcgill MD for IO/Eylea OS/OCT Return in 1 month wi Gui Mcgill MD for INJ EYL OS w/OCT Related to Exdtve age-rel mclr degn, left eye, with actv chrdl neovas Impression/Plan Related to HTN Impression/Plan Related to Age-r elated nuclear cataract, left eye Impression/Plan Related to Prese nce of intraocular lens Impression/Plan Related to 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 Mcgill for follow up exam and OCT. 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 It is reasonable from a retinal standpoint that the patient return to their referring physician for further evaluation of the cataracts and to discuss surgical benefits of cataract removal if patient desires. There is no retinal contraindication to proceeding with cataract surgery. Related to Age-related nuclear cataract, left eye Impression/Plan - LE FT: Non-Exudative Age Related Macular Degeneration was noted on examination today and explained to the patient. The patient was advised to monitor an Amsler grid on a daily basis and to use the antioxidant vitamins as described in the Age Related Eye Disease Study. They were instructed to report any grid or vision changes immediately. Risk of transition to Exudative AMD was discussed. Related to Nonexudative age-related macular degeneration, left eye, intermediate dry stage Impression/Plan - RI GHT: Continue observation but hold therapy at this time given absence of recurrent hemorrhage and extent of scarring and atrophy. Visual prognosis is stable but limited. Discussed risk of recurrent CNV. The patient agrees and will self-monitor central vision carefully with daily Amsler grid testing and let us know immediately if there are new changes. Related to Exudative age-related macular degeneration, right eye, with inactive choroidal neovascularization Follow up - Return i n 1 year for FU OCT OU. Related to Exudative age-related macular degeneration, right eye, with inactive choroidal neovascularization Impression/Plan - RI GHT: A well positioned intraocular lens implant was noted. I have stressed the importance of regular follow-ups with the patient's primary eye manager intensive care unit. Related to Presence of intraocular lens Return in 8 months w radha Mcgill for follow up exam and OCT. Related to Exudative age-related macular degeneration, right eye, with inactive choroidal neovascularization Impression/Plan - A well positioned intraocular lens implant was noted. I have stressed the importance of regular follow-ups with the patient's primary eye manager intensive care unit. Related to Presence of intraocular lens Impression/Plan - LE FT: The progression of cataracts was noted on examination today and discussed with the patient. It is reasonable from a retinal standpoint that the patient return to their referring physician for further evaluation of the cataracts and to discuss surgical benefits of cataract removal if patient desires. There is no retinal contraindication to proceeding with cataract surgery. Related to Age-related nuclear cataract, left eye Impression/Plan - LE FT: Non-Exudative Age Related Macular Degeneration was noted on examination today and explained to the patient. The patient was advised to monitor an Amsler grid on a daily basis and to use the antioxidant vitamins as described in the Age Related Eye Disease Study. They were instructed to report any grid or vision changes immediately. Risk of transition to Exudative AMD was discussed. Related to Nonexudative age-related macular degeneration, left eye, intermediate dry stage Impression/Plan - RI GHT: Continue observation but hold therapy at this time given absence of recurrent hemorrhage and extent of scarring and atrophy. Visual prognosis is stable but limited. Discussed risk of recurrent CNV. The patient agrees and will self-monitor central vision carefully with daily Amsler grid testing and let us know immediately if there are new changes. Related to Exudative age-related macular degeneration, right eye, with inactive choroidal neovascularization Follow up - Return i n [address] Mcgill for follow up exam and OCT. Related to Exudative age-related macular degeneration, right eye, with inactive choroidal neovascularization Return in [address] Mcgill for follow up exam with OCT and possible Avastin OD. Related to Exudative age-related macular degeneration, right eye, with active choroidal neovascularization Impression/Plan - RI GHT: Resolved s/p Avastin injections - see plan #1. 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 The patient was advised to monitor an Amsler grid on a daily basis and to use the antioxidant vitamins as described in the Age Related Eye Disease Study. They were instructed to report any grid or vision changes immediately. Risk of transition to Exudative AMD was discussed. Related to Nonexudative age-related macular degeneration, left eye, intermediate dry stage Impression/Plan - RI GHT: After careful review of today's clinical and diagnostic testing, antiVEGF treatment for Exudative Age Related Macular Degeneration was recommended and discussed with the patient. Previous diagnostic testing was also reviewed, and the decision was made to treat and extend therapy. This will continue to be implemented as long as good treatment response is observed. The off-label status of Avastin and use of a compounding pharmacy were discussed. The patient chose to continue and received an intravitreal injection of Avastin today. The patient tolerated the procedure well and has been instructed to call immediately with the onset of severe pain, non-watery discharge or visual loss. The patient will continue following an Amsler grid daily and the use of the Age Related Eye Disease Study vitamins. Appropriate follow up with primary eye manager intensive care unit was recommended. The patient should call with any concerns or change in symptoms Related to Exudative age-related macular degeneration, right eye, with active choroidal neovascularization Follow up - Return i n [address] Mcgill for follow up exam with OCT and possible Avastin OD. Related to Exudative age-related macular degeneration, right eye, with active choroidal neovascularization Impression/Plan - A well positioned intraocular lens implant was noted. I have stressed the importance of regular follow-ups with the patient's primary eye manager intensive care unit. Related to Presence of intraocular lens Impression/Plan - LE FT: The progression of cataracts was noted on examination today and discussed with the patient. It is reasonable from a retinal standpoint that the patient return to their referring physician for further evaluation of the cataracts and to discuss surgical benefits of cataract removal if patient desires. There is no retinal contraindication to proceeding with cataract surgery. Related to Age-related nuclear cataract, left eye - 4-6 wks forfu, OCT, poss AVN O D. Related to Exudative age-related macular degeneration, right eye, with active choroidal neovascularization - 4-5 week IO AVN OD with OCT. R elated to Exudative age-related macular degeneration, right eye, with active choroidal neovascularization Return in 4-[address] Mcgill for follow up exam with OCT and possible Avastin OD. Related to Exudative age-related macular degeneration, right eye, with active choroidal neovascularization Impression/Plan - LE FT: The progression of cataracts was noted on examination today and discussed with the patient. It is reasonable from a retinal standpoint that the patient return to their referring physician for further evaluation of the cataracts and to discuss surgical benefits of cataract removal. There is no retinal contraindication to proceeding with cataract surgery. Related to Age-related nuclear cataract, left eye Impression/Plan - Po sterior vitreous detachment was noted on examination today and explained to the patient. There is no evidence of a retinal tear, break or detachment. Patient instructed to call the office immediately if any symptoms noted. Related to Vitreous degeneration, bilateral Impression/Plan - RI GHT: Secondary to Ex AMD - will treat with Avastin and continue to monitor. Related to Retinal hemorrhage, right eye Nonexudative age-rel ated macular degeneration, left eye, intermediate dry stage - Educational brochure provided. Related to Nonexudative age-related macular degeneration, left eye, intermediate dry stage Exudative age-relate d macular degeneration, right eye, with active choroidal neovascularization - Use of grid discussed. Related to Exudative age-related macular degeneration, right eye, with active choroidal neovascularization Impression/Plan - LE FT: Non-Exudative Age Related Macular Degeneration was noted on examination today and explained to the patient. The patient was advised to monitor an Amsler grid on a daily basis and to use the antioxidant vitamins as described in the Age Related Eye Disease Study. They were instructed to report any grid or vision changes immediately. Risk of transition to Exudative AMD was discussed. Appropriate follow up with primary eye manager intensive care unit was recommended. Related to Nonexudative age-related macular degeneration, left eye, intermediate dry stage Impression/Plan - RI GHT: Initial antiVEGF treatment for Exudative Age Related Macular Degeneration was recommended and explained to the patient. The risks, benefits, and alternatives were discussed. The patient understands that the initial regimen will consist of a series of monthly injections. The goal of a treat and extend regimen was explained and will be implemented as long as good treatment response and resolution of subretinal blood and subretinal fluid and/or subRPE fluid is observed. The off-label status of Avastin and use of a compounding pharmacy was discussed. The patient chose to proceed and received an intravitreal injection of Avastin today. The patient tolerated the procedure well and has been instructed to call immediately with the onset of severe pain, non-watery discharge or visual loss. The patient was instructed to start using the antioxidant vitamins as described in the Age Related Eye Disease Study and to follow an Amsler grid daily. Related to Exudative age-related macular degeneration, right eye, with active choroidal neovascularization Follow up - Return i n 4-[address] Mcgill for follow up exam with OCT and possible Avastin OD. Related to Exudative age-related macular degeneration, right eye, with active choroidal neovascularization Nonexudative age-rel ated macular degeneration, left eye, intermediate dry stage - AREDS formula discussed. Related to Nonexudative age-related macular degeneration, left eye, intermediate dry stage [facility] Work Phone: 1(438) 282-346611-01-2024 Instructions* Patient Instructions* Mark Cesar PA-C - 07/28/2024 3:27 PM EDT Please follow up in about 1 year with LAKESHIA HERNÁNDEZ [facility] NoteHNO ID: [id number] Author: MARK CESAR PA-C Service: ? Author Type: Physician Volunteer Specialist Type: Progress Notes Filed: 08/02/2024 19:03 Note [...] Reviewed KUB and U (more content not included)...[facility] 07-28-2024 History of Present illness Narrative* Mark Cesar PA-C - 07/28/2024 3:09 PM EDT Images from the original note were not included. UROLOGY NOTE Chief complaint: kidney stones Jesús Gase is a 88 year old female who [...] All fluids count but water is best. [place] intake - Recommend increasing dietary citrate intake. Adding more fruits & vegetables toyour diet; in particular citrus fruits (clary/limes/lemonade/melons/tomatoes). One can add 4 oz oflemon juice diluted in 32 oz of water daily to start. If diet changes are too difficult we can presc ribe a medication, potassium citrate, that can help [...] spinach, nuts, seeds, potatoes. Foods like banana, avocado,soybean, pascale, cereals are good for you. Drink [...] drinks. This may mean limiting sugar-sweetened or alcoholicdrinks. Knowing how much you drink during the day can help you understand how much you need to drink to produce 2.5 liters of urine. Use a household measuring cup to measure how much liquid you drink for a day or two. Drink from bottles or cans with the fluid ounces listed on the label. Keep a log, and addup the ounces at the end of the [...] Control (CDC) and other health groups advise noteating more than 2,300 mg of salt per day. The following foods are high in salt and should be eatenin moderation: Cheese (all types) Most frozen foods [...] your diet without supplements if you eat [id number] servings of calcium-rich food. Many foods and beverages have calcium in them. Some foods and beverages that might be easy to include on a daily basis with meals are: Table of Foods Rich in Calcium Eat plenty of fruits and vegetables. Eating at least five servings of fruits and vegetables daily is recommended for all people who formkidney stones. Eating fruits and vegetables give you [...] diet is affecting your uric acid levels. https://www.urologyhealth.org/urology-a-z/k/kidney-stones#Prevention%20of%20Futu re%20Stones RTC in 12 months w/ new US and LAKESHIA. Mark Cesar PA-C [facility] NotePatient Outreach (UROLMN) JESÚS NOLAN ([id number]) 1935 F Date Time Provider Department 07/28/24 MARK CESAR During your visit today, we recorded the following information about you: Allergies As of Date: 07/28/2024 (No Known Allergies) Date Reviewed: 07/28/2024 Reviewed by: Alis Silva OCCA - Fully Assessed Visit Diagnosis:Screening for genitourinary condition [Z13.89] Order(s):URINALYSIS, REFLEX MICROSCOPIC [ZSR1965] Order #: [id number]. #:[id number] Prescriptions as of 07/31/2024 - cephALEXin (KEFLEX) [...] 10/19/2023 Delirium [R41.0] 10/21/2023 Encounter Status:Closed by JOSIAH TURNER on 07/31/24[facility] 02-17-2024 Telephone encounter Note* Telephone Encounter - Moni Chaudhari RN - 02/17/2024 11:06 AM EDT Called and spoke with patients daughter to [...] next steps. Please advise. Khushboo [facility] Miscellaneous Notes* Telephone Encounter - Moni Chaudhari RN - 02/17/2024 11:06 AM EDT Called and spoke with patients daughter to [...] the next steps. Please advise. Thanks, Khushboo M[facility] documented [facility]05-[facility] Telephone encounter Note * Telephone Encounter - Yuly Hernandez - 01/31/2024 2:14 PM EDT Today we got an outside CT faxed in for Jesús. It is uploaded in her scanned documents. [facility] Miscellaneous Notes* Telephone Encounter - Yuly Hernandez - 01/31/2024 2:14 PM EDT Today we got an outside CT faxed in for Jesús. It is uploaded in her scanned documents. [facility]04-[facility] Miscellaneous Notes* Telephone Encounter - Khushboo Davila - 01/04/2024 10:23 AM EDT Mailed pt CT orders so they can have done locally when they get apt they will call to schedule VV with Mark Cesar documented in this encounterWood [facility] Miscellaneous Notes* Addendum Note - Mark Cesar PA-C - 12/08/2023 3:25 PM EDTAddended by: MARK CESAR on: 12/08/2023 03:25 PM Modules accepted: Orders * Telephone Encounter - Mark Cesar PA-C - 12/08/2023 3:20 PM EDT Left VM following our post-op visit. In reviewing with Dr. Garland, we feel a CT scan to assess post-op mild/moderate hydronephrosis is warranted to rule out stone fragments vs stricture formation. Order is in place. Instructed to call at earliest convenience to set up. Can review alongside Litholinkin a few weeks. Mark Cesar PA-C December 07, 2023 12 PM documented in this encounterWood County Hospital03-11-2024 Instructions* Patient Instructions* Mark Cesar PA-C - 12/06/2023 2:49 PM EDT documented in this encounterWood County Hospital03-11-2024 NoteHNO ID: [id number] Author: MARK CESAR PA-C Service: ? Author Type: Physician Volunteer Specialist Type: Progress Notes Filed: 12/07/2023 14:24 Note [...] Monocytes % 10/17/2023 9.5 % Final Abs Gallia 10/17/2023 0.68 <0.87 k/uL Final Eosinophils % [...] (H) 74 - 99 mg/dL Final The [place] [employer] (ADA) provides guidance for cutoff [...] Standards of Medical Care in Diabetes 2016, [place] [employer]. Diabetes Care. 2016.39(Suppl 1). BUN [...] mmol/L Final Calcium, Total (more content not included)...[facility] 12-06-2023 History of Present illness Narrative* Mark Cesar PA-C - 12/06/2023 2:31 PM EDT Images from the original note were not included. UROLOGY NOTE Chief complaint: kidney stone follow up Jesús Nolan is a 88 year old female who presents today for kidney stone management and prevention counseling. s/p L miniPCNL w/ Dr. Garland on 10/18/23. CaP, struvite. Pt currently: no fever, no chills, no nausea, no vomiting, no dysuria, no gross hematuria, no renalcolic She completed US and KUB today, the [...] Monocytes % 10/17/2023 9.5 % Final Abs Gallia 10/17/2023 0.68 <0.87 k/uL Final Eosinophils % [...] (H) 74 - 99 mg/dL Final The [place] [employer] (ADA) provides guidance for cutoff values for fasting glucose andrandom glucose. The ADA defines fasting as no [...] Standards of Medical Care in Diabetes 2016, [place] [employer]. Diabetes Care. 2016.39(Suppl 1). BUN [...] creatinine assay has traceable calibration to isotope dilution- mass spectrometry. Refer to KDIGO guidelines for clinical interpretation. In patients with unstable renal function, e.g. those with acute kidney injury, the eGFRmay not accurately reflect actual GFR. Culture, Urine 10/17/2023 No growth (<1,000 CFU/ml) Final PT Sec 10/17/2023 11.1 9.7 - 13.0 sec Final INR 10/17/2023 1.0 0.9 - 1.3 Final Vitamin K Antagonist (VKA) Therapeutic Range: INR 2 to 3 (Target INR of 2.5) Note: For patients treated with VKA drugs, such as warfarin, the [employer] [employer] 2012 Guideline recommends [...] Chest 2012, 141:7S-47S Shital RA, et al. [facility] 2017, 70: 252-289 WBC 10/18/2023 18.32 [...] (H) 74 - 99 mg/dL Final The [place] [employer] (ADA) provides guidance for cutoff values for fasting glucose andrandom glucose. The ADA defines fasting as no [...] Standards of Medical Care in Diabetes 2016, [place] [employer]. Diabetes Care. 2016.39(Suppl 1). BUN [...] creatinine assay has traceable calibration to isotope dilution- mass spectrometry. Refer to KDIGO guidelines for clinical interpretation. In patients with unstable renal function, e.g. those with acute kidney injury, the eGFRmay not accurately reflect actual GFR. Culture, Urine [...] developed and its performance characteristics determined by [facility] Pathology [facility] [place] ([facility]). It has not been cleared or approved by the FDA. [facility] is regulated under CLIA as qualified to perform high-complexity testing. Thistest is used for clinical purposes. It should not be regarded as investigational or for research. Glucose 10/19/2023 131 (H) 74 - 99 mg/dL Final The [place] [employer] (ADA) provides guidance for cutoff values for fasting glucose andrandom glucose. The ADA defines fasting as no [...] Standards of Medical Care in Diabetes 2016, [place] [employer]. Diabetes Care. 2016.39(Suppl 1). BUN [...] creatinine assay has traceable calibration to isotope dilution- mass spectrometry. Refer to KDIGO guidelines for clinical interpretation. In patients with unstable renal function, e.g. those with acute kidney injury, the eGFRmay not accurately reflect actual GFR. WBC 10/19/2023 [...] Monocytes % 10/19/2023 8.7 % Final Abs Gallia 10/19/2023 1.09 (H) <0.87 k/uL Final Eosinophils [...] 92 74 - 99 mg/dL Final The [place] [employer] (ADA) provides guidance for cutoff values for fasting glucose andrandom glucose. The ADA defines fasting as no [...] Standards of Medical Care in Diabetes 2016, [place] [employer]. Diabetes Care. 2016.39(Suppl 1). BUN [...] creatinine assay has traceable calibration to isotope dilution- mass spectrometry. Refer to KDIGO guidelines for clinical interpretation. In patients with unstable renal function, e.g. those with acute kidney injury, the eGFRmay not accurately reflect actual GFR. WBC 10/21/2023 [...] (H) 74 - 99 mg/dL Final The [place] [employer] (ADA) provides guidance for cutoff values for fasting glucose andrandom glucose. The ADA defines fasting as no [...] Standards of Medical Care in Diabetes 2016, [place] [employer]. Diabetes Care. 2016.39(Suppl 1). BUN [...] creatinine assay has traceable calibration to isotope dilution- mass spectrometry. Refer to KDIGO guidelines for clinical interpretation. In patients with unstable renal function, e.g. those with acute kidney injury, the eGFRmay not accurately reflect actual GFR. Stone composition: [...] All fluids count but water is best. [place] intake - Recommend increasing dietary citrate intake. Adding more fruits & vegetables toyour diet; in particular citrus fruits (clary/limes/lemonade/melons/tomatoes). One can add 4 oz oflemon juice diluted in 32 oz of water daily to start. If diet changes are too difficult we can presc ribe a medication, potassium citrate, that can help [...] spinach, nuts, seeds, potatoes. Foods like banana, avocado,soybean, pascale, cereals are good for you. Drink [...] drinks. This may mean limiting sugar-sweetened or alcoholicdrinks. Knowing how much you drink during the day can help you understand how much you need to drink to produce 2.5 liters of urine. Use a household measuring cup to measure how much liquid you drink for a day or two. Drink from bottles or cans with the fluid ounces listed on the label. Keep a log, and addup the ounces at the end of the [...] Control (CDC) and other health groups advise noteating more than 2,300 mg of salt per day. The following foods are high in salt and should be eatenin moderation: Cheese (all types) Most frozen foods [...] your diet without supplements if you eat womwa-yr-xmuo servings of calcium-rich food. Many foods and beverages have calcium in them. Some foods and beverages that might be easy to include on a daily basis with meals are: Table of Foods Rich in Calcium Eat plenty of fruits and vegetables. Eating at least five servings of fruits and vegetables daily is recommended for all people who formkidney stones. Eating fruits and vegetables give you [...] diet is affecting your uric acid levels. https://www.urologyhealth.org/urology-a-z/k/kidney-stones#Prevention%20of%20Futu re%20Stones RTC in 6 months w/ new imaging. I spent a total of 20 minutes on the date of the service which included preparing to see the patient, oerb-wr-xpam patient care, completing clinical documentation, obtaining and/or reviewing separately obtained history, counseling and educating the patient/family/caregiver, ordering medications, clemente ts, or procedures, and communicating results to the patient/family/caregiver. Mark Cesar PA-C documented in this encounterWood County Hospital03-11-2024 History of Present illness Narrative* Star Canales RT(R) - 12/06/2023 1:30 PM EDT Radiology Service Progress Note PATIENT NAME: Jesús Nolan DATE OF SERVICE: December 06, 2023 TIME: 1:47 PM PATIENT IDENTITY VERIFICATION COMPLETED USING TWO (2) IDENTIFIERS: Name and Date of confirmedby patient verbally. FALL SCREENING: Has the patient had 2 falls in the last year or 1 fall with injury or currently using an Ambulatory Assistive Device (Walker, Cane, Wheelchair, Crutches, etc.)? Yes, Patient High Riskfor Falls What interventions were put in place to prevent falls during this visit? [place] Risk Wristband Applied PATIENT GENDER DATA: Female. status: : No status: NO. PATIENT RELEVANT IMPLANT DATA REVIEWED: Not Applicable PATIENT PRESENTS WITH AN IMPLANTABLE OR ATTACHED VP ANALYSIS: No RADIOLOGY DEPARTMENT: General X-ray: Exam(s) Completed: Abdomen X-Ray: Abdomen with Obliques PERIPHERAL IV DATA: Not applicable SIGNED BY: RT Eveline(R) December 06, 2023 1:47 PM documented in this encounterWood County Hospital03-11-2024 NoteHNO ID: [id number] Author: STAR CANALES RT(R) Service: ? Author [...] PATIENT PRESENTS WITH AN IMPLANTABLE OR ATTACHED VP ANALYSIS: No RADIOLOGY DEPARTMENT: General X-ray: Exam(s) Completed: Abdomen X-Ray: Abdomen with Obliques PERIPHERAL IV DATA: Not applicable SIGNED BY: SABINO Mosquera) December 06, 2023 1:47 [facility]03-[facility] NotePatient Outreach (UROLMN) JESÚS NOLAN ([id number]) 1935 F Date Time Provider Department 12/06/23 MARK CESAR During your visit today, we recorded the following information about you: Allergies As of Date: 12/06/2023 (No Known Allergies) Date Reviewed: 12/06/2023 Reviewed by: Koerting, Kya, OCCA - Fully Assessed Visit Diagnosis:Screening for genitourinary condition [Z13.89] Order(s):URINALYSIS, REFLEX MICROSCOPIC [[id number]] Order #: [id number]. #:[id number] Prescriptions as of 12/09/2023 - acetaminophen (TYLENOL [...] 10/21/2023 Encounter Status:Closed by EPIC, PRODUSER on 12/09/23[facility] 10-27-2023 NoteHNO ID: [id number] Author: RICCO GARLAND MD Service: ? Author [...] Ricco Garland MD Director, Surgical [facility] Pager [phone] 10/27/2023[facility] NoteHNO ID: [id number] Author: CHRISTA FLANAGAN RN Service: ? Author [...] Care Visit completed when applicable. Christa Flanagan RNOhio State University [facility]01-25-2024 NoteHNO ID: [id number] Author: JACOB PALMER MD Service: Urology Author Type: Resident Type: Progress Notes Filed: 10/21/2023 06:46 Note Text: [facility] UR[facility] PROGRESS NOTE Name: Jesús Nolan Bed: G090 033/[id number] Date: 10/21/2023 After Hours Main [place] [facility] Service Pager: [phone] ASSESSMENT Jesús Nolan is a 88 year [...] vs tomorrow Discussed with attending physician Dr Rajendra Esteves MD Urology PGY2 [facility] [place] For weekend or after hours issues [place] [phone] Active Problems Anemia of chronic disease, POA- [...] 2.02* 1.91* GLUC 92 131* 197* Imaging ReviewedOhio State University [facility]01-24-2024 NoteHNO ID: [id number] Author: LORENA PRESTON RPh Service: Pharmacy Author [...] Solid Organ Transplant and Internal Medicine Clinical Certified Pharmacist Assistant Phone: [phone] Serum creatinine: 2.02 mg/dL (H) 10/19/23 0615 [...] Medications These medications were sent to e- [facility]/pharmacy #[id number] [place] [address] - [address] - [phone] [facility] [address] [facility] [place] [address] amoxicillin 250 mg capsule tamsulosin 0.4 mg You can get these medications from any pharmacy You don't need a prescription for these medications acetaminophen 500 mg tabletOhio State University Wexner Medical Center01-24-2024 NoteHNO ID: [id number] Author: RICCO GARLAND MD Service: Urology Author [...] Garland MD, FACS Director, Surgical Stone Disease, [facility] [place] online marketing coordinator, [employer] Pager [phone] 10/20/2023[facility]01[facility]24 NoteHNO ID: [id number] Author: YESSICA LEE, [place] Service: Pharmacy Author Type: Chore Worker Type: Plan of Care Filed: 10/20/2023 08:37 Note Text: Insurance investigation completed Patient has active prescription insurance: Yes - Patient's insurance is in-network with [facility] Insurance loaded into [place]: Yes Test claim was completed to verify insurance is active: Successful Any questions, please contact your medication administrative assistant coordinator. Pager #: [phone] State University [facility]ner [facility]01-24-2024 NoteHNO ID: [id number] Author: RICCO GARLAND MD Service: Urology Author [...] mental status. Her stone came back infected (chknponbv-oakkdlzo-iupcfjygs) and even though there are no other signs of sepsis at this time, we need to watch for this as well. Ricco Garland MD, FACS Director, Surgical Stone Disease, [facility] [place] online marketing coordinator, [employer] Pager [phone] 10/20/2023[facility]01[facility]-2024 NoteHNO ID: [id number] Author: JACOB PALMER MD Service: Urology Author Type: Resident Type: Progress Notes Filed: 10/20/2023 06:56 Note Text: [facility] UROLOGY PROGRESS NOTE Name: Jesús Nolan Bed: G090 033/[id number] Date: 10/20/2023 After Hours [facility] [place] [facility] Service Pager: [phone] ASSESSMENT Jesús Nolan is a 88 year [...] DC Today Discussed with attending physician Dr Rajendra Esteves MD Urology PGY2 [facility] [place] For weekend or after hours issues [place] [phone] Active Problems Anemia of chronic disease, POA- [...] 1.91* 2.11* GLUC 131* 197* 129* Imaging ReviewedOhio State University [facility]01-23-2024 NoteHNO ID: [id number] Author: SERG ROTH LSW Service: Care Management Author Type: Delivery Tech Type: Care Mgt Initial Assessment Filed: 10/19/2023 16:08 Note Text: CARE MANAGEMENT: ASSESSMENT AND DISCHARGE PLAN SERVICE DATE: October 19, 2023 SERVICE TIME: 4:04 PM PCP: Brina Cordero MD Primary Contact: Extended Emergency Contact Information Primary Emergency Contact: MARANDA DA SILVA [facility] Mobile Relation: Daughter Admission Status: Observation Insurance Provider: MEDICARE A AND B Discharge Planning requested by: Per Department Practice Potential Transition Plans Assisted/Supervised Living Advance Directives Current Advance Directive: None Pizza Delivery Attempted to Assist with AD Completion: Yes Action: Education Provided Current Living Arrangements and Support Lives with: Other person(s) Assisted Living Type of Residence: Assisted Living Facility Care Facility [facility]: [facility] [phone] Support: Family members How do you manage to accomplish the following: Needs Assistance: Ambulation;Bathe/Shower;Dress;Meals/Meal Prep;Going to the bathroom;Medication Management;Transportation to appointments/community Current Services/Equipment Current Post-Acute Service(s): None Discharge Planning Patient Goal(s): Be able to go home, General wellness [facility] Explained: [facility] Given: No Reason Not Given: No placements necessary Are you interested in bedside delivery of your medications? Yes Discharge Planning Participant(s): Patient;Family Patient/Family Comments: Dtr completed assessment. Pt is extremely AMBLER Caregiver Assessment: Caregiver is ready, willing and able to meet the patient's needs as recommended by the inter-professional team: Yes Transport at Discharge: Transportation Arrangements: Car Needs Prior to Discharge: Needs Prior to Discharge: None Post-Acute Discharge Plan: Chart reviewed and initial assessment completed. Met with pt at bedside. Pt is very AMBLER. Vision is limited as well. She gave permission to speak with her dtr, Maranda. Call placed to Maranda. Pt lives in at [facility] ([phone]). The assisted living assists with meals, meds, and some personal care as needed. Plan is to return to assisted living at ut. Dtr will transport. Call placed to [facility]. Spoke with Mahsa in admissions. She [...] 19, 2023 TIME: 4:04 PM CONTACT #: [phone] County Hospital01-23-2024 Note HNO ID: [id number] Author: JACOB PALMER MD Service: Urology Author Type: Resident Type: Progress Notes Filed: 10/19/2023 06:55 Note Text: [facility] [place] UR[facility] PROGRESS NOTE Name: Jesús Nolan Bed: G090 033/[id number] Date: 10/19/2023 After Hours [facility] [place] [facility] Service Pager: [phone] ASSESSMENT Jesús Nolan is a 88 year [...] DC tomorrow Discussed with attending physician Dr Rajendra Esteves MD [facility] PGY2 [facility] [place] For weekend or after hours issues [place] [phone] Active Problems Anemia of chronic disease, POA- [...] 1.91* 2.11* GLUC -- 197* 129* Imaging ReviewedOhio [facility] University [facility]01-22-2024 NoteHNO ID: [id number] Author: JACOB PALMER MD Service: Urology Author Type: Resident Type: Progress Notes Filed: 10/18/2023 18:13 Note Text: [facility] UROLOGY PROGRESS NOTE Name: Jesús Nolan Bed: G090 033/G090-33 Date: 10/18/2023 After Hours [facility] Urology Service Pager: [phone] ASSESSMENT Jesús Nolan is a 88 year [...] tomorrow AM Discussed with attending physician Dr Rajendra Esteves MD Urology PGY2 [facility] [place] For weekend or after hours issues [place] [phone] Active Problems Anemia of chronic disease, POA- [...] BUN 30* CREAT 2.11* GLUC 129* Imaging ReviewedOhio [facility] University [facility]01-22-2024 NoteHNO ID: [id number] Author: JON CERDA SRNA Service: ? Author [...] October 18, 2023 TIME: 8:33 AM CSN: [id number] State University Wexner Medical Center01-22-2024 NoteHNO ID: [id number] Author: JON CERDA SRNA Service: ? Author [...] October 18, 2023 TIME: 8:32 AM CSN: [id number] State University [facility]ner Medical Center01-22-2024 NoteHNO ID: [id number] Author: JON CERDA SRNA Service: ? Author [...] October 18, 2023 TIME: 8:27 AM CSN: [id number] State University Wexner Medical Center01-21-2024 NoteHNO ID: [id number] Author: RONEL JUAN RN Service: Nursing Author [...] Daughter maranda and son in law at bedside.[facility]01-21-2024 NoteHNO ID: [id number] Author: RONEL JUAN RN Service: Nursing Author Type: Registered Nurse Type: Progress Notes Filed: 10/17/2023 11:01 [place]: [place] [phone] Urology: Jesús Nolan G90/33 patient is here as a direct admit. Awaiting orders. Ronel Juan RNOhio State University Wexner Medical Center12-14-2023 Evaluation note* Encounter Date Diagnosis Assessment Notes Treatment Notes Treatment Clinical Notes Aug, Acute UTI (ICD-10 - N39.0) Finish antibiotic prescribed at [facility]. 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 [facility] Other 12-12-2023 NoteHNO ID: [id number] Author: Ricco Garland MD Service: ? Author [...] hardly hear me. Though not [facility], patient's daughter indicates Dr. Harsh [...] based on size, location, hounsfield units and mssp-gg-oxbaq distance: 0% 3. Ureteroscopy - risks of [...] with more than 50% of the total sgft-so-ltef time of the visit devoted to patient counseling/coordination of care. Ricco Garland MD, FACS Director, Surgical Stone Disease, [facility] [place] online marketing coordinator, [employer] Pager [phone] 09/07/2023[facility]12[facility] NotePatient Outreach (UROLMN) JESÚS NOLAN ([id number]) 1935 F Date Time Provider Department 09/07/23 RICCO GARLAND During your visit today, we recorded the following information about you: Allergies As of Date: 09/07/2023 (No Known Allergies) Date Reviewed: 09/07/2023 Reviewed by: Karen Calvillo OCCA - Fully Assessed Visit Diagnosis:Screening for genitourinary condition [Z13.89] Order(s):URINALYSIS, REFLEX MICROSCOPIC [[id number]] Order #: [id number] #:[id number] Prescriptions as of 09/10/2023 - VITAMIN C [...] hip surgery [Z98.890] 09/07/2023 Encounter Status:Closed by JOSIAH TURNER on 09/10/23[facility] 06-11-2023 Evaluation note* Encounter Date Diagnosis Assessment Notes Treatment Notes Treatment Clinical Notes May, Bilateral impacted cerumen (ICD-10 - H61.23) [facility] Other 08-30-2023 Evaluation note* Encounter Date Diagnosis [...] chronic disease (ICD-10 - D63.8) As above. [facility] Other Consult note* Clinical Note Date No Information [facility] Work Phone: Discharge summary* Clinical Note Date No Information [facility] Work Phone: Evaluation noteNo InformationNort [facility] Other Evaluation note* Diagnosis Onset Date Resolution Status Acute metabolic encephalopathy acute PRESTON (acute kidney injury) ac debi Constipation acute Dementia acute Hallucinations acute Hypertension acute Right nephrolithiasis acute Staghorn calculus acute UTI (urinary tract infection) acute [facility] Work Phone: Evaluation note* Diagnosis Hydronephrosis with urinary obstruction due to renal calculus- Primary Nephrolithiasis Calculus of kidney [facility] Diagnosis Nephrolithiasis- Primary Calculus of kidney Nephrolithiasis Calculus of kidney documented in this [facility]* Diagnosis Nephrolithiasis Calculus of kidney documented in this encounter [facility] note* Diagnosis Nephrolithiasis Calculus of kidney documented in this encounter [facility] note* Diagnosis Nephrolithiasis- Primary Calculus of kidney Hydronephrosis, unspecified hydronephrosis type documented in this encounter [facility] note* Diagnosis Nephrolithiasis- Primary Calculus of kidney documented in this encounter [facility] note* Diagnosis Screening for genitourinary condition Screening for other and unspecified genitourinary condition documented in this encounter [facility] noteNo assessment information availableOhiohealth Southeastern Medical [facility] Work Phone: Evaluation note* Diagnosis Pre-op evaluation- Primary Preoperative examination, unspecified Essential hypertension Unspecified essential hypertension Stage 4 chronic kidney disease (HCC) Generalized anxiety disorder Anemia of chronic disease Anemia of other chronic disease Constipation, unspecified constipation type Screening for genitourinary condition Screening for other and unspecified genitourinary condition documented in this encounter [facility] note* Diagnosis Pre-op evaluation- Primary Preoperative examination, unspecified Essential hypertension Unspecified essential hypertension Stage 4 chronic kidney disease (HCC) Generalized anxiety disorder Anemia of chronic disease Anemia of other chronic disease Constipation, unspecified constipation type Nephrolithiasis- Primary Calculus of kidney Renal cyst Unspecified congenital cystic kidney disease documented in this encounter [facility] note* Diagnosis Onset Date Resolution Status Admit Date Dysuria acute August 16, 2024 10:50am Fatigue acute August 16, 2024 10:50am Insomnia acute August 16, 2024 10:50am Acute metabolic encephalopathy inact bob August 16, 2024 10:50am [facility] Work Phone: Evaluation note* Diagnosis 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)- Primary documented [facility] this encounter [facility] Clinical Note Date No Information [facility] Work Phone: Hisqkdh general Narrative - Reported* Type Description Date [...] History CHOLECYSTECTOMY Hospitalization History SEE SURGICAL HX [facility] Other Progress note* Clinical Note Date No Information [facility] Work Phone: Reason for referral (narrative)* Diagnostic Procedure Only (Routine) - Pending Review Specialty Diagnoses / Procedures Referred By Megha frederick Referred To Contact MOLECULAR & FUNCTIONAL IMAGING Diagnoses Hydronephrosis with urinary obstruction due to renal calculus Procedures NM RENAL FLOW/FXN W PHARM KIDNEY IMG MORPHOLOGY VASCULAR FLOW 1 W/RX Ricco Garland MD [address] [place] [address] Molecular & Functional Imaging [address] [place] [address] Referral ID Status Reason Start Date Expiration Date Visits Requested Visits Authorized [id number] Pending Review Auto-Generat ed Referral 3 10/07/2024 1 1 [facility] for referral (narrative)* Diagnostic Procedure Only (Routine) - Closed Specialty Diagnoses / Procedures Referred By Megha frederick Referred To Contact XR IMAGING Diagnoses Nephrolithiasis Procedures XR ABDOMEN 3V KUB W/OBLIQUES RADIOLOGIC EXAM ABDOMEN 3+ VIEWS Ricco Garland MD [address] [place] [address] Xr Imaging [place] [address] Referral ID Status Reason Start Date Expiration Date V isits Requested Visits Authorized [id number] Closed Auto-Generate d Referral 10/27/2023 11/25/2024 1 1 [facility] for referral (narrative)* Diagnostic Procedure Only (Routine) - Closed Specialty Diagnoses / Procedures Referred By Megha frederick Referred To Contact US IMAGING Diagnoses Nephrolithiasis Procedures US KIDNEY/BLADDER US RETROPERITONEAL REAL TIME W/IMAGE COMPLETE Ricco Garland MD [address] [place] [address] [place] [address] Referral ID Status Reason Start Date Expiration Date V isits Requested Visits Authorized [id number] Closed Auto-Generate d Referral 10/27/2023 11/25/2024 1 1 [facility] for referral (narrative)* Diagnostic Procedure Only (Routine) - Authorized Specialty Diagnoses / Procedures Referred By Contac t Referred To Contact XR IMAGING Diagnoses Nephrolithiasis Procedures XR ABDOMEN 3V KUB W/OBLIQUES RADIOLOGIC EXAM ABDOMEN 3+ VIEWS Mark Cesar PA-C [address] [place] [address] [place] [address] Referral ID Status Reason Start Date Expiration Date Visits Requested Visits Authorized [id number] Authorized Auto-Generat ed Referral 12/06/2023 01/04/2025 1 1 * Diagnostic Procedure Only (Routine) - Authorized Specialty Diagnoses / Procedures Referred By Contac t Referred To Contact US IMAGING Diagnoses Nephrolithiasis Procedures US KIDNEY/BLADDER US RETROPERITONEAL REAL TIME W/IMAGE COMPLETE Mark Cesar PA-C [address] [place] [address] [place] [address] Referral ID Status Reason Start Date Expiration Date Visits Requested Visits Authorized [id number] Authorized Auto-Generat ed Referral 12/06/2023 01/04/2025 1 1 [facility] for referral (narrative)* Diagnostic Procedure Only (Routine) - New Request Specialty Diagnoses / Procedures Referred By Contac t Referred To Contact XR IMAGING Diagnoses Nephrolithiasis Procedures XR ABDOMEN 3V KUB W/OBLIQUES RADIOLOGIC EXAM ABDOMEN 3+ VIEWS Mark Cesar PA-C [address] [place] [address] [place] [address] Referral ID Status Reason Start Date Expiration Date Visits Requested Visits Authorized [id number] New Request Auto-Generat ed Referral 07/28/2024 08/27/2025 1 1 * Diagnostic Procedure Only (Routine) - New Request Specialty Diagnoses / Procedures Referred By Contac t Referred To Contact US IMAGING Diagnoses Nephrolithiasis Renal cyst Procedures US KIDNEY/BLADDER US RETROPERITONEAL REAL TIME W/IMAGE COMPLETE Mark Cesar PA-C [address] [place] [address] [place] [address] Referral ID Status Reason Start Date Expiration Date Visits Requested Visits Authorized [id number] New Request Auto-Generat ed Referral 07/28/2024 08/27/2025 1 1 [facility] for referral (narrative)* Reason For Referral No Information [facility] Work Phone: [facility] for visit Narrative* Diagnostic Procedure Only (Routine) - Closed Specialty Diagnoses / Procedures Referred By Contac t Referred To Contact US IMAGING Diagnoses Nephrolithiasis Procedures US KIDNEY/BLADDER US RETROPERITONEAL REAL TIME W/IMAGE COMPLETE Ricco Garland MD [address] [place] [address] [place] [address] Referral ID Status Reason Start Date Expiration Date V isits Requested Visits Authorized [id number] Closed Auto-Generate d Referral 10/27/2023 11/25/2024 1 1 [facility] for visit Narrative* Consultation (Routine) - Closed Specialty Diagnoses / Procedures Referred By Contac t Referred To Contact Neurology Diagnoses Visual hallucinations Procedures [place] [facility] Brina Cordero MD [address] [place] [address] Phone: tel: fax: Chele Briseno MD [address] [place] [address] Phone: tel: fax: Referral ID Status Reason Start Date Expiration Date V isits Requested Visits Authorized [id number] Closed Consult and Treat 09/14/2024 03/13/2025 1 1 [facility] Advance Directives No Advanced Directives Records FoundDocuments on File Type Date Recorded Patient Bell Valet Expl anation Advance Directives and Living Will Power of Freight Car Inspector Documents on File Type Date Recorded Patient [place] Expl anation Advance Directives and Living Will Power of Freight Car Inspector Latest Code Status on File Code Status Date Activated Date Inactivated Comments DNR-CCA 04/05/2020 7:40 AM Full Code 04/02/2020 11:53 PM 04/05/2020 7:40 AM Documents on File Type Date Recorded Patient [place] [employer]et Expl anation Advance Directives and Livin g Will Advance Directives and Livin g Will 04/09/2020 4:57 PM Power of Freight Car Inspector Power of Freight Car Inspector 04/09/2020 4:57 PM Latest Code Status on File Code Status Date Activated Date Inactivated Comments DNR-CCA 04/05/2020 7:40 AM 04/06/2020 2:39 PM Full Code 04/02/2020 11:53 PM 04/05/2020 7:40 AM Documents on File Type Date Recorded Patient [place] [employer]et Expl anation ACP-Advance Directive ACP-Advance Directive 04/09/2020 4:57 PM ACP-Power of Freight Car Inspector ACP-Power of Freight Car Inspector 04/09/2020 4:57 PM DNR Documentation 04/09/2020 4:57 PM Latest Code Status on File Code Status Date Activated Date Inactivated Comments Full Code 05/10/2020 3:57 PM Full Code 05/10/2020 10:16 AM 05/10/2020 3:48 PM DNR-CCA 04/05/2020 7:40 AM 04/06/2020 2:39 PM Documents on File Type Date Recorded Patient Bell Valet Expl anation ACP-Advance Directive ACP-Advance Directive 04/09/2020 4:57 PM ACP-Do Not Resuscitate 05/16/2020 1:04 PM ACP-Power of Freight Car Inspector ACP-Power of Freight Car Inspector 04/09/2020 4:57 PM DNR Documentation 04/09/2020 4:57 PM Latest Code Status on File Code Status Date Activated Date Inactivated Comments Full Code 05/10/2020 3:57 PM 05/15/2020 9:57 PM Full Code 05/10/2020 10:16 AM 05/10/2020 3:48 PM DNR-CCA 04/05/2020 7:40 AM 04/06/2020 2:39 PM Documents on File Type Date Recorded Patient Bell Valet Expl anation ACP-Advance Directive ACP-Advance Directive 04/09/2020 4:57 PM ACP-Advance Directive 06/13/2020 10:59 AM ACP-Do Not Resuscitate 05/16/2020 1:04 PM ACP-Do Not Resuscitate ACP-Do Not Resuscitate 06/13/2020 10:59 AM ACP-Power of Freight Car Inspector ACP-Power of Freight Car Inspector 04/09/2020 4:57 PM DNR Documentation 04/09/2020 4:57 PM Documents on File Type Date Recorded Patient Bell Valet Expl anation ACP-Advance Directive ACP-Do Not Resuscitate ACP-Power of Freight Car Inspector ACP-Advance Directive 06/13/2020 10:59 AM ACP-Do Not Resuscitate 06/13/2020 10:59 AM ACP-Do Not Resuscitate 05/16/2020 1:04 PM ACP-Advance Directive 04/09/2020 4:57 PM ACP-Do Not Resuscitate 04/09/2020 4:57 PM ACP-Power of Freight Car Inspector 04/09/2020 4:57 PM Advance Directive Response Recorded Date/ Time Advance Directives No August 31, 2023 8:19pm Advance Directive Response Recorded Date/ Time Advance Directives No August 31, 2023 9:19pm Directive Yes / No Effective Date File Name No Information Reason for Referral Status Reason Specialty Diagnoses / Procedures Referre d By Contact Referred To Contact Open Radiology Diagnoses Chronic kidney disease, stage IV (severe) (HCC) Procedures US RENAL COMPLETE Iboaya, Benahili U, DO Status Reason Specialty Diagnoses / Procedures Referred By Contact Referred To Contact Open Specialty Services Required Physical Therapy Diagnoses General weakness Ricco Sánchez MD [address] [place] [address], [place] [address] Specialty Diagnoses / Procedures Referred By Contdemetrio t Referred To Contact CT IMAGING Diagnoses Nephrolithiasis Procedures CT FLANK WO IVCON CT ABD & PELVIS W/O CONTRAST O'Mark Jama PA-C [address] [place] [address] [place] [address] Referral ID Status Reason Start Date Expiration Date Visits Requested Visits Authorized [id number] Pending Review Auto-Generat ed Referral 12/08/2023 01/06/2025 1 1 Assessments Diagnosis Chronic kidney disease, stage IV (severe) (HCC) Chronic kidney disease, Stage IV (severe) Diagnosis Closed displaced intertrochanteric fracture of left femur, initial encounter (HCC) Diagnosis Pain of left hip joint Diagnosis [...] Care Everywhere. * Hip Fracture: Surgery: Post-op (Maldivian) documented in this encounter* Discharge Instr - Diet* Sofía Esparza, ALFA, LD - 04/03/2020 8:30 AM EDT ? [...] most local grocery stores, pharmacies, and chain [employer]stores. ? If you have any questions about [...] Hospital Unit/Room#: 0311/0311-01 Discharging Unit Phone Number: [phone] Emergency Contact: Extended Emergency Contact Information Primary Emergency Contact: Isaias Nolan Address: [address] [place] [address] [address] [place] [address] Relation: Spouse Secondary Emergency Contact: Maranda Da [...] Dependent Dressing Dependent Toileting Dependent Feeding [employer] Principal Assisted Med Delivery whole Wound Care Documentation [...] Readmission: 15 Discharging to Facility/ Agency Name: [facility] Address:[address] [place] [address] Dialysis Facility (if applicable) Name: Address: Dialysis Schedule: Phone: Fax: X Ray Consultant/Delivery Tech signature: PHYSICIAN SECTION Prognosis: {Prognosis:2719730030} Condition at Discharge: { Patient Condition:411701956} Rehab Potential (if transferring to Rehab): {Prognosis:8973381337} Recommended Labs or Other Treatments After Discharge: Physician Certification: I certify the above information and transfer of Jesús Nolan is necessary for the continuing treatment of the diagnosis listed and that she requires Jail Facility for greater 30 days. Update Admission H&P: {CHP DME Changes in HandP:205608351} PHYSICIAN SIGNATURE: {Esignature:360901476} documented in this encounter* Discharge Instr - [...] Agent's Name Healthcare Agent's Phone Number 05/10/20 [id number] Unknown, patient unable to respond due to medical condition -- -- -- -- -- Admitting Physician: Chele Lagos MD PCP: Justino Dhaliwal DO Discharging Nurse: Nirmala WESLEY Discharging Hospital Unit/Room#: 7K-19/019-A Discharging Unit Emergency Contact: Extended Emergency Contact Information Primary Emergency Contact: Isaias Nolan Address: [address] [place] [id number] Relation: Spouse Secondary Emergency Contact: Maranda Da Silva Relation: Child Past Surgical History: Past Surgical History: Procedure Laterality Date CHOLECYSTECTOMY HYSTERECTOMY JOINT REPLACEMENT knee REVISION TOTAL HIP ARTHROPLASTY Left 05/10/2020 HARDWARE REMOVAL LEFT HIP, CONVERSION TO LEFT TOTAL HIP performed by Chele Lagos MD at [facility] OR Immunization History: There is [...] Assisted Dressing Assisted Toileting Assisted Feeding [employer] Principal Assisted Med Delivery whole Wound Care Documentation [...] Readmission: 20 Discharging to Facility/ Agency Name: [facility] Address: [address] [facility] [address] Dialysis Facility (if applicable) Name: Address: Dialysis Schedule: Phone: Fax: X Ray Consultant/Delivery Tech signature: ICIAN SECTION Prognosis: Fair Condition at Discharge: Stable Rehab Potential (if transferring to Rehab): Fair Recommended Labs or Other Treatments After Discharge: n/a Physician Certification: I certify the above information and transfer of Jesús Nolan is necessary for the continuing treatment of the diagnosis listed and that she requires Jail Facility for greater 30 days. Update Admission [...] not made for you at discharge, call [phone] ([place] office) or [phone] ([place] office) to schedule an appointment for 8 [...] Everywhere. * Hip Replacement: Posterior: Precautions: Post-op (Maldivian) * Hip Replacement Surgery: Posterior: Post-op (Maldivian) documented in this encounter* Instructions* Leta Irwin RN - 05/30/2020 Wound Management Patient Discharge Instructions CALL [phone] for questions regarding care of your wounds. [...] today! documented in this encounter* Instructions* Mary Newman, ALFA, LD - 06/13/2020 Pressure Injuries: Care Instructions [...] on bandages as your doctor or clinical review specialist says. Keep healthy tissue around the [...] Where can you learn more? Go to [email or web address] and sign in to your [employer] account. Enter F114 in the Search Health Information box to learn more about Pressure Injuries: Care Instructions. If you do not have an account, please click on the Sign Up Now link. Current as of: November 29, 2019 Content Version: 12.5 [employer]. Care instructions adapted under license by [employer]. If you have questions about a medical condition or this instruction, always ask your healthcare professional. [employer] disclaims any warranty or liability for your use of this information. Wound Management Patient Discharge Instructions CALL [phone] for questions regarding care of your wounds. [...] 06/27/2020 Wound Management Patient Discharge Instructions CALL [phone] for questions regarding care of your wounds. [...] 07/18/2020 Wound Management Patient Discharge Instructions CALL [phone] for questions regarding care of your wounds. [...] 09/12/2020 Wound Management Patient Discharge Instructions CALL [phone] for questions regarding care of your wounds. [...] 08/15/2020 Wound Management Patient Discharge Instructions CALL [phone] for questions regarding care of your wounds. [...] know that pt is discharged back to [facility]. Voicemail left for to return call. * [...] 04/05/2020 7:53 AM EDT Occupational Therapy Facility/Department: [facility] Daily Treatment Note NAME: Jesús Nolan : 1935 Date of Service: 04/05/2020 Discharge Recommendations: Continue to assess pending progress, Subacute/Jail Facility, Patient would benefit from continued therapy [...] Pt uncooperative with assessment. Eyes closed upon engineering technical writer entering room, easily aroused. Pt yells at engineering technical writer to leave her alone. Pt tachypneic [...] Patient has not eaten any meals today. Plate Inspector attempted to help feed the patient. Patient refused. * Robinson Ellsworth PTA - 04/04/2020 2:38 PM EDT Physical Therapy Facility/Department: [facility] Daily Treatment Note NAME: Jesús Nolan : 1935 Date of Service: 04/04/2020 Discharge Recommendations: Continue to assess pending progress, Subacute/Jail Facility, ECF with PT, Patient would benefit [...] is approved by insurance to return to [facility]. SAAD Hough * Caprice Echeverria RN [...] Tells me that she has been at [facility] for 6 weeks now for therapy after a fractured hip. Her confusion has gradually gotten worse, more so lately. Support given. states that she has been unable to walk lately, which is the reason she was brought to the hospital. Admitted with cellulitis. Spiritual screening done. Tells me that the file keeper visited with them yesterday. Denies any spiritual needs at this time. Emotional support given. DNR paper order form to be placed on paper chart for signature. Will continue to follow and support. Caprice Echeverria RN, [facility] Palliative Care Nurse Coordinator 04/04/2020 11:24 AM * Alicia Miller RN - 04/04/2020 9:04 AM EDT Patient resting quietly in bed. No complaints at this time. Patient tolerated medications well. * Alicia Miller RN - 04/04/2020 8:45 AM EDT Patient refuses breakfast at this time. * Natalie Guzman PTA - 04/04/2020 8:39 AM EDT Physical Therapy Facility/Department: [facility] Daily Treatment Note NAME: Jesús Cha Ovidio : 1935 Date of Service: 04/04/2020 Discharge Recommendations: Continue to assess pending progress, Subacute/Jail Facility, ECF with PT, Patient would benefit [...] like for her mother to return to [facility] following this hospitalization. Daughter is aware, per this engineering technical writer, that [facility] does have Covid positive resident in their facility at this time. Referral made to [facility] via telephone voicemail message left for Kapil Orta re:above. [facility] will begin pre-cert and notify SALON LE[facility]ER when Patient is able to return. SAAD Koroma 04/03/2020 * Iza Hein LSW - 04/03/2020 3:15 PM EDT Met with Patient to discuss discharge planning. Unable to complete assessment due to Patient confusion. Telephone voicemail message left for Patient's spouse and for her daughter. Spoke with Admission's promotional representative at [facility] where Patient was residing at the time ofher hospitalization. She states that [facility] will take Patient back if she or her family chooseto send her back at this time with the knowledge that [facility] has Covid positive Patient in their facility at this time. SALON LEADER will await a telephone call back from Patient's family to determine discharge planning goals. SAAD Koroma 04/03/2020 * Gretchen Chapa, ROLL FORMING MACHINE SET UP MECHANIC - 04/03/2020 3:09 PM EDT [facility] Inpatient/Observation/Outpatient Rehabilitation Date: 04/03/2020 Patient Name: Jesús Nolan [x] Inpatient Acute/Observation [] Outpatient : 1935 [] Pt no showed for scheduled appointment [] Pt refused/declined therapy at this time due to: [x] Pt cancelled due to: [] No Reason Given [] Sick/ill [x] Other: Physical therapy treatment was attempted at 2:40pm. Patient demonstrating increased agitation. Consulted with Fanny, treatment withheld. Gretchen Chapa, ROLL FORMING MACHINE SET UP MECHANIC Date: 04/03/2020 * Astrid Alan, PT - 04/03/2020 9:30 AM EDT Physical Therapy Facility/Department: [facility] MED [facility] Initial Assessment NAME: Jesús Nolan : 1935 Date of Service: 04/03/2020 Discharge Recommendations: Continue to assess pending progress, Subacute/Jail Facility, ECF with PT, Patient would benefit [...] History Lives With: Alone Type of Home: Facility([facility]) Home Layout: One level Home Equipment: Rolling walker ADL Assistance: Needs assistance Homemaking Assistance: Needs assistance IADL Comments: Limited hx provided by pt d/t impaired cognition. Pt resided at [facility], butunable to determine what length of time. Per EMR, pt went to [facility] for rehab following L hip fx. Cognition [...] Group Co-treatment Time In 717 Time Out 747 Minutes 30 Astrid Alan PT , DPT [...] 5. Fluid Accumulation-Mild fluid accumulation, Extremities 6. Coil Strapper Strength-Not measured Recent Labs 04/02/20 1445 04/02/20200404/03/20 0555 NA 137 139 140 K 2.9* 3.4* 3.5* CL 92* 96* 96* CO2 29 28 26 BUN 37* 35* 30* CREATININE 1.41* 1.33* 1.17* GLUCOSE 200* 149* 157* GFR Lab Results Component Value Date LABALBU 3.3 03/25/2020 LABALBU 4.4 02/19/2012 Nutrition Risk Level: Moderate Nutrient Needs: Estimated Daily Total Kcal: 8475-6577 Estimated Daily Protein (g): 55-65 Estimated Daily [...] Usual Body Wt: 159 lb (72.1 kg) Moffett Body Wt: 100 lb (45.4 kg), % Moffett Body 158% BMI Classification: BMI 30.0 - 34.9 Obese Class I Nutrition Interventions: Continue current diet Continued Inpatient Monitoring, Education Completed Nutrition Evaluation: Evaluation: Goals set Goals: >75% PO Monitoring: Meal Intake, Supplement Intake, Weight, Pertinent Labs, Chewing/Swallowing, Patient/Family Education, Constipation Contact Number: [phone] * Sonali Avitia, [facility] - 04/03/2020 8:11 AM EDT Piperacillin-Tazobactam Extended [...] You, Sonali Avitia04/03/20208:11 AM * Vernell Stephenson [facility] - 04/03/2020 7:29 AM EDT [facility] Department of Pharmacy Pharmacy Renal Adjustment Note [...] ml/min. Vernell Stephenson,04/03/2020,7:29 AM * Vernell Stephenson [facility] - 04/03/2020 7:26 AM EDT [facility] Department of Pharmacy Pharmacy Renal Adjustment Note [...] Garcia RN - 04/03/2020 5:58 AM EDT Plate Inspector and 2 RNs came change's patient's bed linen, gown, and brief at this time. Corrine care was performed. Patient is suddenly a lot more pleasant, cooperative, and able to hold a conversation. Patient is now orientated to person, birthday and place. Patient states she does not know the month. Plate Inspector re orientated patient to month. Plate Inspector is going to attempt to regain IV access. Leads were also off and reapplied. * Vicki Garcia RN - 04/03/2020 5:40 AM EDT Vascular Physician alerted engineering technical writer that patient had removed her brief and pull out her IV at this time. * Vicki Garcia RN - 04/03/2020 2:45 AM EDT Patient refused being repositioned at this time. Don't touch me, patient stated. * Vicki Garcia RN - 04/03/2020 2:28 AM EDT Navigator completed to engineering technical writer's best ability. Multiple items of the [...] to leave the room at this time. Plate Inspector will continue to monitor. * Vicki Garcia [...] Garcia RN - 04/03/2020 12:43 AM EDT Plate Inspector attempted to give verpamil, xanax and tylenol crushed in pudding at this time. Patient refused, patient smacked engineering technical writer and swore at engineering technical writer and with engineering technical writer's final attempt after explaining it had pain medication in the pudding to help her feel better, patient smacked the spoon out of engineering technical writer'antonio and onto the floor, stating it smells like shit and I dont want no pills. Plate Inspector was able to jewelry department supervisor patient to IV fluids however patient was mad at engineering technical writer for doing so and swatted at engineering technical writer. * Vicki Garcia RN - 04/03/2020 12:28 AM EDT Patient stated get the hell out of here and that myself and Valerie RN are a pain in the ass and need to get out. Plate Inspector is attempting to give medications at this time. * Vicki Garcia RN - 04/03/2020 12:10 AM EDT Heart monitor applied at this time by engineering technical writer. While applying heart monitor tabs patient was verbally agressive stating leave me alone, stop touching me and will you go downstairs and stay down there!? * Alan Jalloh [facility] - 04/03/2020 12:10 AM EDT Pharmacy Note Renal Dose Adjustment Jesús Nolan is a 84 y.o. female. Pharmacist assessment of renally cleared medications. Recent Labs 04/02/20 1445 04/02/202004 BUN 37* 35* Recent Labs 04/02/20 1445 04/02/202004 CREATININE 1.41* 1.33* CrCl cannot be calculated (Unknown ideal weight.). Estimated CrCl using [place] Body Weight: 23.4 mL/min (based on IBW [...] [facility] 04/03/2020 12:10 AM * Vicki Garcia, RN - 04/03/2020 12:03 AM EDT Patient is disorientated x4. Patient stated I do not have a name. Did not respond when asked whenpatient was born multiple times. Patient stated we're at [facility] house when replying to location and stated no what was the month. Patient unable to answer questions at this time due to disorientation. ER nurses states hasnot seen weeks and was unable to speak on her care. Patient is from [place], engineering technical writer will review the paperwork sent over by [facility]. Patient is resting with eyes closed at this time, patient is confused and opens eyes occasional when spoken to. * Alan Jalloh [facility] - 04/03/2020 12:03 AM EDT Pharmacy Note Renal Dose Adjustment Jesús Nolan is a 84 y.o. female. Pharmacist assessment of renally cleared medications. Recent Labs 04/02/20 1445 04/02/202004 BUN 37* 35* Recent Labs 04/02/20 1445 04/02/202004 CREATININE 1.41* 1.33* CrCl cannot be calculated (Unknown ideal weight.). Estimated CrCl using Moffett Body Weight: 23.42 mL/min (based on IBW [...] 04/02/2020 11:20 PM EDT [facility] to room 311 at from ER via bed at this time. Patient was moved over to bed via flat sheet with 4 nurses. Patient unable to assist. documented in this encounter* Nirmala Lanier RN - 05/15/2020 3:50 PM EDT Report called to RN at [facility] in [place]. Facility will accept patient after 10pm when Jenniferan pick her up. * Constantin Escobedo MD - 05/15/2020 11:58 AM EDT Hospitalist Progress Note Patient: Jesús Nolan Unit/Bed:7K-19/019-A Date of : 1935 Acct: [id number] PCP: Justino Dhaliwal DO Date of Admission: [...] hypertension Hospital Course: Initial admission HPI by sap pp consultant physician reviewed as below: 84-year-old female [...] [] Rehab [] Psych [] SNF [] Field Reviewer Care Facility [] Other- Code Status: Full Code PT/OT Eval Status: * Katarina Pike, DEPARTMENT HELPER - PUBLIC RELATIONS COUNSELOR - 05/15/2020 11:39 AM EDT Orthopaedic Progress [...] Dry dressings prn PT/OT dvt ppx * Scott Bettie Grayson, ROLL FORMING MACHINE SET UP MECHANIC - 05/14/2020 12:06 PM EDT [facility] INPATIENT PHYSICAL THERAPY DAILY NOTE [facility] ORTHOPEDICS 7K - 7K-19/019-A Time [...] Function: Lives With: Alone Type of Home: Facility([place] x6-7 months) ADL Assistance: Needs assistance(recently requiring assist with all at [facility]) Homemaking Assistance: (dependent on staff) Ambulation Assistance: Needs assistance Transfer Assistance: Needs assistance Additional Comments: Pt reports being a long time since she has walked, reports living at [place] x6-7 months, was starting to work on [...] with functional mobility. Functional Outcome Measures: Completed AM-[facility] Inpatient Mobility Raw Score : 8 -[facility] Inpatient T-Scale Score : 28.52 ASSESSMENT: Assessment: Patient progressing toward established goals. Activity Tolerance: Patient tolerance of treatment: fair. Pt pleasantly confused during session. Equipment Recommendations:Equipment Needed: No Discharge Recommendations: Subacute/Jail Facility Plan: Times per week: 4-5x O [...] A x 2 for increased functional mobility. snf goals Time Frame for pipe fitter fire sprinkler systems goals : NA due to short length of stay. Following session, patient left in safe position with all fall risk precautions in place. * Chele Lagos MD - 05/14/2020 9:42 AM EDT Physician Progress Note PATIENT: JESÚS NOLAN CSN #: [id number] : 1935 ADMIT DATE: 05/10/2020 9:36 AM [...] Thank you! STEVO WallsN,RN, CRCR RN Clinical Classification Analyst P: [phone] Options provided: -- Acute blood loss anemia [...] 9:41 AM * Katarina Pike APRN - PUBLIC RELATIONS COUNSELOR - 05/14/2020 8:35 AM EDT Orthopaedic Progress [...] EDT Hospitalist Progress Note Patient: Jesús Nolan Unit/Bed:[facility]019-A Date of : 1935 Acct: [id number] PCP: Justino Dhaliwal DO Date of Admission: [...] reviewed in chart review snap shot in [employer] CC: Consult for medical management HPI: Initial admission HPI by sap pp consultant physician reviewed as below: 84-year-old female [...] Please excuse my TYPOS! * Katarina Pike, DEPARTMENT HELPER - PUBLIC RELATIONS COUNSELOR - 05/13/2020 11:30 AM EDT Orthopaedic Progress [...] does not include documentation. * Bettie Chavez, ROLL FORMING MACHINE SET UP MECHANIC - 05/13/2020 9:29 AM EDT [facility] INPATIENT PHYSICAL THERAPY DAILY NOTE [facility] ORTHOPEDICS 7K - 7K-19/019-A Time [...] Function: Lives With: Alone Type of Home: Facility([place] x6-7 [facility]) ADL Assistance: Needs assistance(recently requiring assist with all at [facility]) Homemaking Assistance: (dependent on staff) Ambulation Assistance: Needs assistance Transfer Assistance: Needs assistance Additional Comments: Pt reports being a long time since she has walked, reports living at [place] x6-7 months, was starting to work on [...] with functional mobility. Functional Outcome Measures: Completed AM-[facility] Inpatient Mobility without Stair Climbing Raw Score : 8 AM-[facility] Inpatient without Stair Climbing T-Scale Score : 30.65 ASSESSMENT: Assessment: Patient progressing toward established goals. Activity Tolerance: Patient tolerance of treatment: good. Pt able to get up with less assist this date. Equipment Recommendations:Equipment Needed: No Discharge Recommendations: Subacute/Jail Facility Plan: Times per week: 4-5x O [...] A x 2 for increased functional mobility. snf goals Time Frame for snf goals : NA due to short length of stay. Following session, patient left in safe position with all fall risk precautions in place. * Saleem Gomes MD - 05/13/2020 8:25 AM EDT Hospitalist Progress Note Patient: Jesús Nolan Unit/Bed:7-19/019-A Date of : 1935 Acct: [id number] PCP: Justino Dhaliwal DO Date of Admission: [...] reviewed in chart review snap shot in [employer] CC: Consult for medical management HPI: Initial admission HPI by sap pp consultant physician reviewed as below: 84-year-old female [...] Nolan Unit/Bed:-19/019-A Date of : 1935 Acct: [id number] PCP: Justino Dhaliwal DO Date of Admission: [...] reviewed in chart review snap shot in [facility] CC: Consult for medical management HPI: Initial admission HPI by sap pp consultant physician reviewed as below: 84-year-old female [...] No growth 05/10/2020 No results found for: JOB Urinalysis: Lab Results Component Value Date NITRU [...] Tinajero, PT - 05/11/2020 2:37 PM EDT [facility] INPATIENT PHYSICAL THERAPY EVALUATION [facility] ORTHOPEDICS 7K - 7K-19/019-A Time [...] History: Lives With: Alone Type of Home: Facility([place] x6-7 months) ADL Assistance: Needs assistance(recently requiring assist with all at [facility]) Homemaking Assistance: (dependent on staff) Ambulation Assistance: Needs assistance Transfer Assistance: Needs assistance Additional Comments: Pt reports being a long time since she has walked, reports living at [place] x6-7 months, was starting to work on [...] with functional mobility. Functional Outcome Measures: Completed -[facility] Inpatient Mobility without Stair Climbing Raw Score : 6 -[facility] Inpatient without Stair Climbing T-Scale Score [...] FOLLOW UP: Yes Discharge Recommendations: Discharge Recommendations: Subacute/Jail Facility Patient Education: PT Education: PT Role, [...] A x 2 for increased functional mobility. snf goals Time Frame for snf goals : NA due to short length of stay. Following session, patient left in safe position with all fall risk precautions in place. * Marcia Escalera OT - 05/11/2020 10:44 AM EDT [facility] INPATIENT OCCUPATIONAL THERAPY [facility] ORTHOPEDICS 7K EVALUATION Time: Time In: 958 Time Out: 1035 Timed Code Treatment Minutes: 26 Minutes Minutes: 36 Date: 05/11/2020 Patient Name: Jesús Nolan, Gender: female : 1935 (84 y.o.) Referring Practitioner: Sylvia Monte, GLORIA - PUBLIC RELATIONS COUNSELOR Diagnosis: periprosthetic hip fracture Additional Pertinent Hx: [...] History: Lives With: Alone Type of Home: Facility([place] x67 [facility]) ADL Assistance: Needs assistance(recently requiring assist with all at [facility]) Homemaking Assistance: (dependent on staff) Ambulation Assistance: Needs assistance Transfer Assistance: Needs assistance Additional Comments: Pt reports being a long time since she has walked, reports living at [place] x6-7 months, was starting to work on [...] Balance: Maximum Assistance, X 2. within romario chirag BED MOBILITY: Supine to Sit: Moderate Assistance with cues and inc time TRANSFERS: Sit to Stand: Maximum Assistance, x3, pt unable to clear paddles on romario beard without 3rd person. from EOB Stand to Sit: Maximum Assistance, X 2. to recliner from Romario beard FUNCTIONAL MOBILITY: Assistive Device: romario stedy Assist [...] next level of care and return to [facility]. Performance deficits / Impairments: Decreased functional mobility [...] independence and quality of life. Discharge Recommendations: Subacute/Jail Facility, Patient would benefit from continued therapy [...] Nolan Unit/Bed:-19/019-A Date of : 1935 Acct: [id number] PCP: Justino Dhaliwal DO Date of Admission: [...] medical management HPI: Initial admission HPI by sap pp consultant physician reviewed as below: 84-year-old female [...] Please excuse my TYPOS! * Devyn Mcgovern, MARYJANE - 05/10/2020 2:55 PM EDT [address] [...] AM EDT The patient arrived with a managed care analyst. Patient in a wheelchair. Patient [...] - 06/13/2020 10:45 AM EDT [facility] Progress Note and Procedure [...] performed by Chele Lagos MD at [facility] OR FAMILY HISTORY History reviewed. [...] Z96.649 Decubitus ulcer of heel, left, unstageable ([facility]) L89.620 REC: excisional debridement / culture Specialized local dressing care Constant off loading Procedure Note Indications: Based on my examination of this patient's wound(s)/ulcer(s) today, debridement is required to promote healing and evaluate the wound base. Performed by: Glenn Martínez DPM Consent obtained: Yes Time out taken: Yes Pain Control: [facility] Debridement:Excisional Debridement Using curette, #15 blade scalpel, [...] (cm^3) 0.99 cm^3 05/30/20 1346 Wound Assessment Bancroft;Slough;Yellow 05/30/20 1346 Drainage Amount Moderate 05/30/20 1346 Drainage Description Serosanguinous 05/30/20 1318 Odor None 05/30/20 1318 Corrine-wound Assessment Clean;Dry;Intact 05/30/20 1318 Non-staged Wound Description Full thickness 05/30/20 1346 Bancroft%Wound Bed 50 05/30/20 1346 Yellow%Wound Bed 50 [...] Weight- Weight: 161 lb 8 oz (73.3 kg)([facility] weight) IBW- 115 # %IBW- [...] Needs- BEE- 1162 kcal Total Calorie Needs- 5585-3844 (25-28 kcal/kg) Total Protein Needs- 78-94 (1.5-1.8 [...] States she eats too much. Staff from [facility] Pt is on a daily MVI [...] Malignant neoplasm Unknown sister Malignant neoplasm Unknown Family Member Type Diagnosis Age At Onset Problem (finding) Family history of hyper tension Chief Complaint and Reason for Visit Chief [...] weaknes s, pain in joints. 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 Displaced intertrochanteric fracture of left femur, subsequent encounter for closed fracture with routine healing LEFT HIP PERIPROSTHETIC FEMUR FX WITH COMPLETE DISPLACEMENT Procedures SD REMOVAL SUPERFICIAL IMPLANT SD CONV PREV HIP SURG TO TOT HIP ARTHROPLAS HARDWARE REMOVAL LEFT HIP, CONVERSION TO LEFT TOTAL HIP Chele Lagos MD [address] [place] [address] [facility] Reason Comments Wound Check Bilateral heels Reason Comments Wound Check bilateral heels Reason Comments Wound Check bilateral heel/leg w ounds Reason Comments Wound Check left heel Reason Comments Wound Check Left heel Reason Comments Wound Check LEFT HEEL AND FLOWER GRADER RIOR LOWER LEG Reason Comments Radio Gen A21 Specialty Diagnoses / Procedures Referred By Contac t Referred To Contact XR IMAGING Diagnoses Nephrolithiasis Procedures XR ABDOMEN 3V KUB W/OBLIQUES RADIOLOGIC EXAM ABDOMEN 3+ VIEWS Ricco Garland MD [address] [place] [address] [place] [address] Referral ID Status Reason Start Date Expiration Date V isits Requested Visits Authorized [id number] Closed Auto-Generate d Referral 10/27/2023 11/25/2024 1 1 Reason Comments Post-Op Visit Reason Comments Results Reason Comments Appointment Reason Comments Results Reason Comments Consult INFORMATION SOURCE (unrecogn ized section and content) DATE CREATED AUTHOR 05/22/2020 [facility] DATE CREATED AUTHOR AUTHOR'S ORGANIZ ATION 08/29/2020 [facility] DATE CREATED AUTHOR AUTHOR'S ORGANIZ ATION 04/20/2021 [facility] DATE CREATED AUTHOR AUTHOR'S ORGANIZ ATION 10/15/2021 [facility] DATE CREATED AUTHOR AUTHOR'S ORGANIZ ATION 09/07/2023 [facility] DATE CREATED AUTHOR AUTHOR'S ORGANIZ ATION 09/14/2023 [facility] DATE CREATED AUTHOR AUTHOR'S ORGANIZ ATION 02/02/2024 [facility] DATE CREATED AUTHOR AUTHOR'S ORGANIZ ATION 08/04/2024 [facility] DATE CREATED AUTHOR AUTHOR'S ORGANIZ ATION 09/29/2024 [facility] DATE CREATED AUTHOR AUTHOR'S ORGANIZ ATION 11/05/2024 [facility] EPIC Care Teams (unrecognized sec tion and content) Team Status: Active Member Role Status Dates Brina Cordero MD Primary Care Provider Active Team Status: Active Member Role Status Dates Destiny Irwin MD Emergency Provider Active Brina Cordero MD Primary Care Provider Active Riky Bundy MD Admit Provider, Attending Martín foreman Active 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 Start Date End Date Brina Cordero MD [address] [place] [facility] [place] [id number] PCP - General Family Medicine 09/09/23 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 Start Date End Date Brina Cordero MD [address] [place] [facility] [phone] PCP - General Family Medicine 09/09/23 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 Start Date End Date Brina Cordero MD [address] [place] [facility] [place] [address] PCP - General Family Medicine 09/09/23 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 Start Date End Date Brina Cordero MD [address] [place] [address] PCP - General Family Medicine 09/09/23 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 Start Date End Date Brina Cordero MD [address] [place] [address] PCP - General Family Medicine 09/09/23 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 Start Date End Date Brina Cordero MD [address] [place] [facility] [place] [address] PCP - General Family Medicine 09/09/23 Team Status: Active Member Role Status Dates Brina Cordeor MD Primary Care Provider Active Start: November [...] January 19, 2024 End: January 19, 2024 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 Start Date End Date Brina Cordero MD [address] [place] [facility] [address] PCP - General Family Medicine 09/09/23 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 Start Date End Date Brina Cordero MD [address] [place] [facility] [place] [address] PCP - General Family Medicine 09/09/23 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 Start Date End Date Brina Cordero MD [address] [place] [address] PCP - General Family Medicine 09/09/23 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 Start Date End Date Brina Cordero MD [address] [place] [address] PCP - General Family Medicine 09/09/23 Team [...] August 16, 2024 End: August 16, 2024 Name Effective Dates (start - stop) Status Members No Information 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 Start Date End Date Brina Cordero MD [address] [place] [address] PCP - General Family Medicine 09/29/23 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 Start Date End Date Brina Cordero MD [address] [facility] [place] [address] PCP - General Family Medicine 09/29/23 Goals (unrecognized section and content) Goals may be documented in a n alternate section Source Comments (unrecognize d section and content) In the event this informatio n is protected by the Federal Confidentiality of Alcohol and Drug Abuse Patient Records regulations: The Federal rules restrict any use of the information to criminally investigate or prosecute any alcohol or drug abuse patient.[facility] the event this information is protected by the Federal Confidentiality of Alcohol and Drug Abuse Patient Records regulations: The Federal rules restrict any use of the information to criminally investigate or prosecute any alcohol or drug abuse patient.[facility] the event this information is protected by the Federal Confidentiality of Alcohol and Drug Abuse Patient Records regulations: The Federal rules restrict any use of the information to criminally investigate or prosecute any alcohol or drug abuse patient.[facility] the event this information is protected by the Federal Confidentiality of Alcohol and Drug Abuse Patient Records regulations: The Federal rules restrict any use of the information to criminally investigate or prosecute any alcohol or drug abuse patient.[facility] Hospital[facility] the event this information is protected by the Federal Confidentiality of Alcohol and Drug Abuse Patient Records regulations: The Federal rules restrict any use of the information to criminally investigate or prosecute any alcohol or drug abuse patient.[facility] Hospital[facility] the event this information is protected by the Federal Confidentiality of Alcohol and Drug Abuse Patient Records regulations: The Federal rules restrict any use of the information to criminally investigate or prosecute any alcohol or drug abuse patient.[facility] HospitalIn the event this information is protected by the Federal Confidentiality of Alcohol and Drug Abuse Patient Records regulations: The Federal rules restrict any use of the information to criminally investigate or prosecute any alcohol or drug abuse patient.[facility] Hospital[facility] the event this information is protected by the Federal Confidentiality of Alcohol and Drug Abuse Patient Records regulations: The Federal rules restrict any use of the information to criminally investigate or prosecute any alcohol or drug abuse patient.[facility] the event this information is protected by the Federal Confidentiality of Alcohol and Drug Abuse Patient Records regulations: The Federal rules restrict any use of the information to criminally investigate or prosecute any alcohol or drug abuse patient.[facility] the event this information is protected by the Federal Confidentiality of Alcohol and Drug Abuse Patient Records regulations: The Federal rules restrict any use of the information to criminally investigate or prosecute any alcohol or drug abuse patient.[facility] the event this information is protected by the Federal Confidentiality of Alcohol and Drug Abuse Patient Records regulations: The Federal rules restrict any use of the information to criminally investigate or prosecute any alcohol or drug abuse patient.[facility] Hospital[facility] the event this information is protected by the Federal Confidentiality of Alcohol and Drug Abuse Patient Records regulations: The Federal rules restrict any use of the information to criminally investigate or prosecute any alcohol or drug abuse patient.[facility] FOR RECORDS PERTAINING TO PATIENTS WHO [...] BE BASED ON THE PRIMARY CLINICAL RECORDS. [facility]. provides no warranty or guarantee of the accuracy or completeness of information in this document.
[2024-11-13] MEDS: ACETAMINOPHEN 325 MG TABLET 650 MG PO (06:02)
[2024-11-13 09:12] VITALS: BP 124/76; O2SAT 98
== END 2024-11-13 09:53 | disposition home or self-care (01) ==
PROVIDERS: Emergency Provider Emergency Medicine; PCP Family Medicine
DX: S80.00XA Contusion of unspecified knee, initial encounter (principal); S80.10XA Contusion of unspecified lower leg, initial encounter; F03.90 Unspecified dementia, unspecified severity, without behavioral disturbance, psychotic disturbance, mood disturbance, and anxiety; S80.211A Abrasion, right knee, initial encounter; W19.XXXA Unspecified fall, initial encounter; Z90.49 Acquired absence of other specified parts of digestive tract; M43.12 Spondylolisthesis, cervical region; M47.812 Spondylosis without myelopathy or radiculopathy, cervical region
CPT/HCPCS: 70450; 71045; 72125; 73523; 73562; 99284

== ENCOUNTER 2024-12-28 10:03 | Outpatient (OUT) | payer MEDICARE, MEDICAID, SELFPAY ==
[2024-12-28 10:02] LABS: Estimated GFR (African America 26 (>=60 mL/min/1.73m^2); Estimated GFR (Non-African Ame 21 (>=60 mL/min/1.73m^2)
--- NOTE | 2024-12-28 10:03 | MR_ITS ---
The [address] [address] Patient Name: JESÚS GONSALES MRN: [id number] date: 1935 Sex: F Assigned Patient Location: LAB Current Patient Location: LAB Accession/Order Number: [id number] Exam Date: 12/28/2024 12:32 Report Date: 12/28/2024 12:39 At the request of: COCO HYATT NP Procedure: MR head/brain wo con EXAMINATION: MRI OF THE BRAIN WITHOUT CONTRAST CLINICAL HISTORY: Visual Hallucinations COMPARISON: CT 11/13/2024 TECHNIQUE: Multiecho, multiplanar imaging of the brain was performed without enhancement due to impaired glomerular gestation. There is mild generalized atrophy. The ventricles are normal in size and position. Patchy areas of increased T2 and FLAIR signal are visualized within the periventricular and subcortical white matter as well as the central jatinder compatible with chronic microvascular disease. 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 There are no additional areas of abnormal signal intensity within the supra- or infratentorial brain. No restricted diffusion is identified to suggest a recent ischemic event. There are no extra-axial collections or mass effect. There is minimal ethmoid mucosal thickening. MR/MR head/brain wo con IMPRESSION: ATROPHY AND CHRONIC MICROVASCULAR DISEASE. NO ACUTE INTRACRANIAL FINDINGS. Impression dictated by: Isabel Vega M.D.12/28/2024 12:39 PM Dictation Location: [place] [address] Electronically authenticated by: [id number] Y Date: 12/28/2024 12:39
== END 2024-12-28 10:04 | disposition home or self-care (01) ==
LOC: LAB 10:03
PROVIDERS: PCP Family Medicine; Visit Provider Nurse Practitioner Family
DX: R44.1 Visual hallucinations (principal); G30.1 Alzheimer's disease with late onset; F02.C3 Dementia in other diseases classified elsewhere, severe, with mood disturbance
CPT/HCPCS: 36415; 70551; 82565

== ENCOUNTER 2025-01-23 13:09 | Outpatient (OUT) | payer MEDICARE, MEDICAID, SELFPAY | END 2025-01-23 13:10 | disposition home or self-care (01) | LOC: US 13:09 | PROVIDERS: PCP Family Medicine; Visit Provider Nurse Practitioner Family | DX: I63.81 Other cerebral infarction due to occlusion or stenosis of small artery (principal) | CPT/HCPCS: 93880 ==